=== PATIENT | female | born 1960 | race Caucasian/White ===

== ENCOUNTER 2023-03-15 13:19 | Outpatient (OUT) | payer BC, SELFPAY ==
[2023-03-15 13:56] LABS: Calcium 9.6 mg/dL (8.5-10.1)
== END 2023-03-15 13:20 | disposition home or self-care (01) ==
LOC: LAB 13:21
PROVIDERS: PCP Family Medicine; Visit Provider Nurse Practitioner Family
DX: M81.0 Age-related osteoporosis without current pathological fracture (principal)
CPT/HCPCS: 36415; 82310

== ENCOUNTER 2023-03-21 16:24 | Outpatient (OUT) | payer BC, SELFPAY ==
--- NOTE | 2023-03-21 16:45 | XR_ITS ---
The [address] [address] Patient Name: CAROLINA GUTIERREZ MRN: [id number] date: 1960 Sex: F Assigned Patient Location: [facility] Current Patient Location: [facility] Accession/Order Number: [id number] Exam Date: 03/21/2023 16:38 Report Date: 03/21/2023 17:22 At the request of: BERRY BETH Procedure: XR chest 2V EXAM: XR chest 2V HISTORY: Cough, wheezing and shortness of breath for one week and history of asthma. COMPARISON: 09/15/2022. TECHNIQUE: PA and lateral views of the chest performed. FINDINGS: The trachea is normal. There is stable mild prominence of the cardiac silhouette. There is stable mild atheromatous calcification at the aortic arch. The hilar shadows are stable and unremarkable. There is no consolidation or infiltrates. There is no pleural effusion or pulmonary vascular congestion. There is no pneumothorax. The bony structures are osteopenic. There is mild scoliosis. XR/XR chest 2V IMPRESSION: There is no acute cardiopulmonary process. Electronically authenticated by: SHERRI MOCTEZUMA Date: 03/21/2023 17:22
== END 2023-03-21 16:25 | disposition home or self-care (01) ==
LOC: RAD 16:26
PROVIDERS: PCP Family Medicine; Visit Provider Nurse Practitioner
DX: R05.9 Cough, unspecified (principal); R06.2 Wheezing; R06.02 Shortness of breath
CPT/HCPCS: 71046

== ENCOUNTER 2023-06-14 13:45 | Outpatient (OUT) | payer BC, SELFPAY ==
--- NOTE | 2023-06-14 14:04 | CT_ITS ---
[address] [address] Patient Name: CAROLINA GUTIERREZ MRN: [id number] date: 1960 Sex: F Assigned Patient Location: CT Current Patient Location: Accession/Order Number: [id number] Exam Date: 06/14/2023 13:57 Report Date: 06/17/2023 10:59 At the request of: LELO DEL RIO Procedure: CT chest wo con EXAMINATION: CT chest wo con HISTORY: Abnormal Findings On Imaging Of Lung R91.6 COMPARISON: 04/09/2022 TECHNIQUE: Multi-planar CT images were created with IV contrast. Axial, Coronal, and Sagittal images. Dose reduction techniques were achieved by using automated exposure control and/or adjustment of mA and/or kV according to patient size and/or use of iterative reconstruction technique. FINDINGS: LUNGS: Small amount of soft tissue in the trachea likely retained mucus. Calcified tracheobronchial tree. Mild scattered patchy infiltrates in the left lung, nonspecific. Scattered pulmonary nodules1 the 2 largest in the right middle lobe axial image #49 measuring 5 mm in diameter and in the right lower lobe axial image 55 measuring 6 mm in diameter, both stable. No new significant pulmonary nodules PLEURA: No mass, effusion, or pneumothorax. VASCULATURE: No abnormality. MOY: No mass or adenopathy. MEDIASTINUM: No mass or adenopathy. CARDIAC: No enlargement or pericardial effusion. Moderate coronary atherosclerosis AORTA: No aneurysm or dissection. CHEST WALL: No mass or axillary adenopathy. BONES: Anterior wedge compression fractures of T6 and T9, unchanged. Mild to moderate degenerative changes LIMITED ABDOMEN: No suspicious findings. Limited images of the upper abdomen. OTHER: Negative. CT/CT chest wo con IMPRESSION: Stable scattered pulmonary nodules Electronically authenticated by: KARSON GARCIA Date: 06/17/2023 10:59
== END 2023-06-14 13:46 | disposition home or self-care (01) ==
LOC: CT 13:45
PROVIDERS: PCP Family Medicine; Visit Provider Internal Medicine
DX: R91.8 Other nonspecific abnormal finding of lung field (principal)
CPT/HCPCS: 71250

== ENCOUNTER 2023-08-21 08:11 | Outpatient (OUT) | payer BC, SELFPAY ==
--- NOTE | 2023-08-21 08:15 | XR_ITS ---
The [address] [address] Patient Name: CAROLINA GUTIERREZ MRN: [id number] date: 1960 Sex: F Assigned Patient Location: [facility] Current Patient Location: [facility] Accession/Order Number: [id number] Exam Date: 08/21/2023 08:17 Report Date: 08/21/2023 08:37 At the request of: BERRY BETH Procedure: XR chest 2V EXAM: Chest x-ray HISTORY: . Cough, Shortness Of Breath . COMPARISON: CT of the chest dating 06/14/2023 and chest x-ray dating 03/21/2023 TECHNIQUE: Frontal and lateral chest FINDINGS: Heart is upper limits of normal in size with left ventricular contour. Vascularity is unremarkable. Lungs are free of focal infiltrates. There were a couple compression deformities involving the thoracic spine. These were present on the previous CT of the chest of 06/14/2023. Left shoulder arthroplasty is noted. XR/XR chest 2V IMPRESSION: 1. Borderline cardiac enlargement. 2. No infiltrates. 3. Compression deformities involving a couple of the thoracic vertebral bodies which is unchanged. Electronically authenticated by: KARSON SCHMIDT Date: 08/21/2023 08:37
--- OUTSIDE RECORDS SUMMARY | 2023-08-21 08:21 | XMS_ITS | CCD ---
Author Name Unknown Address [address] [place] [address] [facility] Care Team Providers Care Sensory Scientist Name Role Phone Aline Guerrero Unavailable Rosa Lazo Unavailable SHANTE DELAROSA Unavailable Unavailable SHANTE DELAROSA Unavailable Unavailable ALINE GUERRERO Unavailable Unavailable SHANTE DELAROSA Unavailable Unavailable GUERREROALINE ROTH Unavailable Unavailable CLIFTON, ROSA CHASE Unavailable Unavailable CLIFTON, ROSA CHASE Unavailable Unavailable CLIFTON, ROSA CHASE Unavailable Unavailable GUERREROALINE ROTH Unavailable Unavailable CLIFTON, ORSA CHASE Unavailable Unavailable CLIFTON, ROSA CHASE Unavailable Unavailable CLIFTON, ROSA CHASE Unavailable Unavailable GUERREROALINE ROTH E Unavailable Unavailable CLIFTON, ROSA CHASE Unavailable Unavailable CLIFTON, ROSA CHASE Unavailable Unavailable GUERREROALINE ROTH Unavailable Unavailable CLIFTON, ROSA CHASE Unavailable Unavailable CLIFTON, ROSA CHASE Unavailable Unavailable ALINE GUERRERO Unavailable Unavailable Aline Guerrero Primary Care Provider ALINE GUERRERO Primary Care Physician [phone] Jesus Higgins Jr. Unavailable Tonia Zavala Unavailable Naty Luke Unavailable Consuelo Rosales Unavailable Aline Guerrero MD Primary Care Provider [phone] MD Aline Guerrero Primary Care Provider NANCY Rosales Attending Provider [phone] RADHA Berry Attending Provider Naomie Berry Unavailable Aline Guerrero MD Primary Care Provider [phone] Aline Guerrero MD Primary Care Provider Aline Guerrero MD Primary Care Provider [phone] ALINE GUERRERO Primary Care Physician MD Aline Guerrero Primary Care Provider [phone] RADHA Berry Attending Provider Silvestre Benavides Primary Care Physician ZIYAD ., DR ALINE Conner Primary Care Unavailable APLING, MERLINE B Consulting Unavailable APLINGMERLINE B Attending Unavailable APLING, MERLINE B Admitting Unavailable SILVESTRE BENAVIDES Primary Care Unavailable IKER, DR NHUNG Harry Consulting Unavailable SHERRI GRIGGS Attending Unavailable SHERRI GRIGGS Admitting Unavailable SHERRI GRIGGS Consulting Unavailable GUERRERO ., DR ALINE Conner Primary Care Unavailable SAMSA ., LELO Admitting Unavailable SAMSA ., LELO Attending Unavailable MAPUS, TONDRA Admitting Unavailable MAPUS, TONDRA Attending Unavailable GUERRERO ., DR ALINE Conner Primary Care Unavailable TEE PULIDO Attending Unavailable TEE PULIDO Admitting Unavailable GUERRERO ., DR ALINE Conner Primary Care Unavailable MARKER ., DR SANTA Consulting Unavailable KARSON CHAUDHARY Consulting Unavailable SILVESTRE BARLOW Consulting Unavailable TEE PULIDO Consulting Unavailable TANGELA BENAVIDESUEL REGINE Consulting Unavailable FAILEANA, SANABRIA H Attending Unavailable GUERRERO ., DR ALINE Conner Primary Care Unavailable FAWWAD, SANABRIA H Admitting Unavailable FAWWAD, SANABRIA H Consulting Unavailable DARAMOLA, STEVO Consulting Unavailable SAWYER BEASLEY Consulting UnavailGEOVANNY Ro Consulting Unavailable RASTELISA ALDRIDGE Consulting Unavailable EDDY ., EDMAR Attending Unavailable EDDY ., EDMAR Admitting Unavailable GUERRERO ., DR ALINE Conner Primary Care Unavailable KARSON SCHMIDT Consulting Unavailable EDDY ., EDMAR Consulting Unavailable NEWATIA, TYLER Consulting Unavailable DIAB ., STEPHANIE Consulting Unavailable WALESKA .CIARA Attending Unavailable GUERRERO ., DR ALINE Conner Primary Care Unavailable WALESKA ., CIARA Admitting Unavailable ZIEBMIA, DR NHUNG Harry Consulting Unavailable DAX ., KATAZRYNA Consulting Unavailable GUERRERO ., DR ALINE Conner Primary Care Unavailable MISC, DR MARX Attending Unavailable MISC, DR MAXR Admitting Unavailable MAKAYLA, SILVESTRE WEINER Primary Care Unavailable SAMSA ., LELO Admitting Unavailable SAMSA ., LELO Consulting Unavailable SAMSA ., LELO Attending Unavailable MAPUS, TONDRA Consulting Unavailable MAPUS, TONDRA Attending Unavailable ROSS, SILVESTRE REGINE Primary Care Unavailable MAPUS, TONDRA Admitting Unavailable GUERRERO ., DR ALINE Conner Primary Care Unavailable GUERRERO ., DR ALINE Conner Consulting Unavailable GUERRERO ., DR ALINE Conner Attending Unavailable GUERRERO ., DR ALINE Conner Admitting Unavailable ARZATE, JOSHUA Consulting Unavailable GUERRERO ., DR ALINE Conner Primary Care Unavailable GUERRERO ., DR ALINE Conner Consulting Unavailable GUERRERO ., DR ALINE Conner Attending Unavailable GUERRERO ., DR ALINE Conner Admitting Unavailable ZIEBER, DR NHUNG Harry Consulting Unavailable GUERRERO ., DR ALINE Conner Primary Care Unavailable GUERRERO ., DR ALINE Conner Consulting Unavailable GUERRERO ., DR ALINE Conner Attending Unavailable GUERRERO ., DR ALINE Conner Admitting Unavailable TRIPP, DR KARSON Valencia Consulting Unavailable Guerrero Aline HDZ Primary Care Provider [phone] MEDARDO VUONG Attending Unavailable ALINE GUERRERO Primary Care Unavailable SELF, SELF Referring Unavailable SELF, SELF Referring Unavailable ALINE GUERRERO Primary Care Unavailable PUJA DELUCA Attending Unavailable PUJA DELUCA Referring Unavailable ALINE GUERRERO Primary Care Unavailable PUJA DELUCA Attending Unavailable MEDARDO VUONG Attending Unavailable MEDARDO VUONG Referring Unavailable ALINE GUERRERO Primary Care Unavailable Rosa Dunbar Attending Unavail able Makayla, Silvestre Liang Primary Care Unavailable BettinaRosa ustton Admitting Unavail able BettinaRosa sutton Admitting Unavail able Rosa Dunbar Attending Unavail able Makayla, Silvestre Liang Primary Care Unavailable STEVO NEFF Admitting Unavailable STEVO NEFF Attending Unavailable Tru, Teodora A Admitting Unavailable Tru, Teodora A Attending Unavailable CHINO Falk Attending Unavailable DO Shalom Toledo Attending Unavailable Silvestre Benavides E. Admitting Unavailable Tru, Teodora A Attending Unavailable Tru, Teodora A Attending Unavailable Tru, Beth A Attending Unavailable GUERREROALINE Attending Unavailable Silvestre Benavides Attending Unavailable Deya, MACHINE HOSE CUTTER Marisela L Attending Unavailable Silvestre Benavides Attending Unavailable Deya, MACHINE HOSE CUTTER Marisela L Attending Unavailable Deya, MACHINE HOSE CUTTER Marisela L Attending Unavailable Deya, MACHINE HOSE CUTTER Marisela L Attending Unavailable Silvestre Benavides Attending Unavailable Silvestre Benavides Attending Unavailable Deya, MACHINE HOSE CUTTER Marisela L Attending Unavailable Silvestre Benavides Attending Unavailable ROSA DUNBAR Attending Unavailable ROSA DUNBAR Referring Unavailable BETTINA, ROSA Manning Attending Unavailable ROSA DUNBAR Referring Unavailable SINTIA JARVIS Attending Unavailable FRANCESCA FUENTES Referring Unavailable BETTINA, ROSA Manning Attending Unavailable ROSA DUNBAR Referring Unavailable ROSA DUNBAR Attending Unavailable ROSA DUNBAR Referring Unavailable Silvestre Benavides MD Primary Care Provider Aline Guerrero Primary Care Unavailable Mapus, Tondra K Admitting Unavailable Mapus Tondra K Attending Unavailable Acacia Berryela Admitting Unavailable Naomie Berry Attending Unavailable Aline Guerrero Primary Care Unavailable Allergies Allergy Classification Reported Allergen(s) Allergy Type Date of Onset Reaction(s) Facility Cephalosporins (antibiotic) (1 source) Cephalexin Drug Allergy 10-19-19 05 [facility] Work Phone: Penicillins (antibiotic) (1 source) Penicillins Drug Allergy 01-05-20 04 [facility] Unclassified (7 sources) No Latex Allergy [Other] Propensity to adverse reactions 10-19-19 05 [facility] Work Phone: (20 sources) cephalexin; Translations: [CEPHALEXIN] Drug Allergy 10-19-19 05 Hives, Weal (disorder), Other [facility] Work Phone: (12 sources) Penicillins; Translations: [PENICILLINS] Propensity to adverse reactions to drug 05-09-20 15 Hives [facility] Work Phone: (17 sources) Penicillin G; Translations: [penicillin G benzathine] Drug Allergy Weal (disorder) [facility] (20 sources) Cephalexin; Translations: [Keflex] Drug Allergy 07-01-18 85 hives/breathin g issues [facility] (16 sources) Penicillins (Antibiotic) Drug allergy hives /breathing issues [employer] Other (5 sources) apixaban Drug Allergy 01-24-20 22 Itching [facility] (6 sources) Penicillins Propensity to adverse reactions 01-05-20 04 [facility] (6 sources) apixaban; Translations: [apixaban] Drug Allergy Unknown (qualifier value) [facility] (6 sources) cefprozil; Translations: [cefprozil] Drug Allergy Unknown (qualifier value) [facility] (6 sources) dabigatran etexilate; Translations: [dabigatran] Drug Allergy Unknown (qualifier value) [facility] (2 sources) Penicillins Drug allergy (disorder) 07-01-18 65 [facility] (3 sources) apixaban Drug Allergy 01-24-20 22 Itching, Unknown [facility] (3 sources) Penicillins Propensity to adverse reactions to drug 01-05-20 04 [facility] (1 source) Penicillin; Translations: [penicillin] Drug Allergy [facility] Rep[facility] (1 source) Sulfamethoxazole / Trimethoprim; Translations: [Bactrim] Drug Allergy [facility] Repository (1 source) Benzathine penicillin - chemical Allergy to substance 03-01-20 23 [facility] (1 source) Cefprozil Allergy to substance 05-06-20 23 Unknown [facility] (1 source) dabigatran etexilate Drug Allergy 05-06-20 23 Unknown [facility] (1 source) Cephalexin Drug Allergy 07-24-19 24 [facility] (1 source) Penicillins Drug allergy (disorder) 07-24-19 24 [facility] Medications Current Medications Medication Drug Class(es) Dates Sig (Normalized) Sig (Original) 3 ML semaglutide 1.34 MG/ML Pen Injector [Ozempic] (20 sources) Start: 11-01-2021 inject 1 mg by subcutaneous injection every week Ozempic (1 MG/DOSE) 4 MG/3ML 1mg Subcutaneous once weekly for 84 days October, Active Start: 02-06-2021 inject 1 mg by subcu taneous injection every week Ozempic (1 MG/DOSE) 4 MG/3ML inject 1mg Subcutaneous Weekly for 90 days Jan, Active Ozempic (1 MG/DO SE) 4 MG/3ML INJECT 1MG SUBCUTANEOUSLY ONCE WEEKLY 84 DAYS for 84 Active inject 1 mg by subcu taneous injection every week Ozempic (1 MG/DOSE) 4 MG/3ML 1mg Subcutaneous once weekly for 84 days Active inject 1 mg by subcu taneous injection every week Ozempic (1 MG/DOSE) 4 MG/3ML INJECT 1MG SUBCUTANEOUSLY ONCE A WEEK for 84 Active acetaminophen 325 mg oral tablet (8 sources) Start: 01-23-2022 take 2 tablets by mouth every four hours as needed acetaminophen 325 MG tablet Take 2 tablets by mouth every 4 hours as needed for Mild Pain. 50 tablet 1 01/23/2022 Active Start: 01-23-2022 End: 01-24-2022 take 1 tablet by mouth every six hours acetaminophen (TYLENOL) tablet 1,000 mg acetaminophen 325 mg / oxyCODONE hydrochloride 5 mg oral tablet (2 sources) Opioid Agonist Start: 05-16-2017 End: 05-16-2017 take 2 tablets by mouth every four hours oxyCODONE-acetaminophen (PERCOCET) 5-325 mg per tablet Take 2 (two) tablets by mouth every 4 (four) hours as needed for pain. 30 tablet 0 05/16/2017 Active Advair Discus 250 mcg-50 mcg Powder (12 sources) Start: 07-29-2015 take 1 puff(s) by inhalation twice daily Advair Discus 250 mcg-50 mcg Powder 1 puff(s), Inhalation, BID, Refill(s) 0, COPD Start Date: 07/29/15 Status: Ordered Advair Diskus 500-50 MCG/DOSE (14 sources) take 1 puff(s) by inhalation every twelve hours Advair Diskus 500-50 MCG/DOSE 1 puff Inhalation every 12 hrs Active albuterol 0.833 mg/ml / ipratropium bromide 0.167 mg/ml inhalation solution (4 sources) Anticholiner gic, beta2-Adrene rgic Agonist Start: 10-01-2022 DuoNeb 2.5 mg-0.5 mg/3 mL Soln-Inh 3 mL, NEB, 6x/Day, 180 mL, Refill(s) 1, [facility]/pharmacy #[id number], 143.2, cm, 10/01/22 7:16:00 EDT, Height/Length Dosing, 86.8, kg, 10/01/22 7:16:00 EDT, Weight Dosing Start Date: 10/01/22 Status: Ordered Start: 09-05-2022 DuoNeb 2.5 mg- 0.5 mg/3 mL Soln-Inh 3 mL, NEB, 6x/Day, Refill(s) 0 Start Date: 09/05/22 Status: Ordered azelastine hydrochloride 0.137 mg/actuat metered dose nasal spray (8 sources) Histamine-1 Receptor Antagonist Start: 12-13-2022 take 2 spray(s) nasal route in the morning azelastine (Astelin) 0.1 % nasal spray Administer 2 sprays into affected nostril(s) in the morning and 2 sprays in the evening. 0 12/13/2022 Active Start: 12-28-2021 take 2 spray(s) nasa l route twice daily Azelastine HCl 137 MCG/SPRAY Solution nasal spray USE 2 SPRAYS IN EACH NOSTRIL TWICE DAILY, NEED TO USE REGULARLY FOR BENEFIT 0 12/28/2021 Active azithromycin 250 mg oral tablet (1 source) Macrolide Antimicrobial Start: 04-05-2022 Azithromycin 250 MG as directed Orally for 5 days Mar, Active benzonatate 200 mg oral capsule (8 sources) Non-narcotic Antitussive Start: 12-20-2021 take 1 capsule by mouth every eight hours as needed for cough benzonatate 200 MG capsule TAKE 1 CAPSULE BY MOUTH EVERY 8 HOURS NEEDED FOR COUGH 0 12/20/2021 Active Start: 12-15-2021 take 1 capsule by [facility] three times daily as needed Tessalon Perles 100 MG 1 capsule as needed Orally Three times a day for 7 days Nov, Active bifidobacterium infantis 4 mg oral capsule (8 sources) Start: 10-09-2021 End: 11-06-2021 Probiotic Product (Align) capsule TAKE 1 CAPSULE DAILY AFTER COMPLETING ANTIBIOTICS COURSE 0 10/09/2021 Active brompheniramine maleate 0.4 mg/ml / dextromethorphan hydrobromide 2 mg/ml / pseudoephedrine hydrochloride 6 mg/ml oral solution (1 source) alpha-Adrenergic Agonist, Uncompetitive T-eccvsw-M-asparta te Receptor Antagonist, Sigma-1 Agonist Start: 09-07-2022 take 5 mL by mouth four times daily Bromfed DM oral syrup 5 mL, Oral, QID for cold symptoms, 200 mL, Refill(s) 0, [facility]/pharmacy #[id number], 150, cm, 09/06/22 23:56:00 EST, Height/Length Dosing, 87.3, kg, 09/06/22 23:56:00 EST, Weight Dosing Start Date: 09/07/22 Status: Ordered 60 actuat budesonide 0.16 mg/actuat / formoterol fumarate 0.0045 mg/actuat metered dose inhaler (1 source) Corticosteroid, beta2-Adrenergic Agonist Start: 09-05-2022 take 2 puff(s) by inhalation in the morning budesonide-formo terol (Symbicort) 160-4.5 MCG/ACT inhaler Inhale 2 puffs in the morning and 2 puffs before bedtime. 0 09/05/2022 Active calcium carbonate 1500 mg oral tablet (7 sources) take 1 tablet by mouth in the morning calcium carbonate 1500 (600 Ca) MG tablet Take 600 mg by mouth in the morning and 600 mg in the evening. Take with meals. 0 Active cetirizine hydrochloride 10 mg oral tablet (6 sources) Histamine-1 Receptor Antagonist Start: 12-15-2021 cetirizine 10 MG tablet 2 times daily. 0 12/15/2021 Active Start: 12-15-2021 take 1 tablet by hermelinda every twenty-four hours Cetirizine HCl 10 MG 1 tablet Orally Once a day for 14 days Nov, Active ciprofloxacin 500 mg oral tablet (3 sources) Quinolone Antimicrobial Start: 10-05-2022 take 1 tablet by mouth every twelve hours Cipro 500 MG 1 tablet Orally every 12 hrs for 5 day(s) Sep, Active clindamycin 300 mg oral capsule (4 sources) Lincosamide Antibacterial Start: 01-15-2023 take 2 capsules by mouth every hour clindamycin (Cleocin) 300 MG capsule TAKE 2 CAPSULES BY MOUTH 1 HOUR PRIOR TO DENTAL APPOINTMENT 0 01/15/2023 Active Start: 02-15-2022 End: 02-15-2023 clindamycin 150 MG capsule T rios 4 capsules 1 hour before the procedure 8 capsule 1 02/15/2022 02/15/2023 Active colchicine 0.6 mg oral tablet (1 source) take 1 tablet by mouth twice daily Colchicine 0.6 MG TAKE 1 TABLET BY MOUTH TWICE A DAY Oral for 30 Active cyclobenzaprine hydrochloride 10 mg oral tablet (6 sources) Muscle Relaxant Start: 09-06-19 take 1 tablet by mouth three times daily as needed for pain cyclobenzaprine 10 mg Tab 10 mg = 1 tab(s), Oral, TID, PRN for spasm, prn back pain, # 30 tab(s), Refills(s) 0 Start Date: 09/05/22 Status: Ordered take 1 tablet by hermelinda th every eight hours as needed for pain Cyclobenzaprine HCl 10 MG TAKE 1 TABLET BY MOUTH EVERY 8 HOURS NEEDED FOR BACK PAIN Oral for 10 Active 1 ml denosumab 60 mg/ml prefilled syringe (20 sources) RANK Ligand Inhibitor Start: 03-27-2023 denosuma b (Prolia) injection 60 mg Start: 09-14-2021 Prolia 60 mg, SubCutaneous, q6mo, Refills(s) 0, Arthritis Start Date: 09/14/21 Status: Ordered Start: 09-14-2021 Prolia Refills (s) 0, Arthritis Start Date: 09/14/21 Status: Ordered Start: 09-14-2021 Prolia Refills (s) 0 Start Date: 09/14/21 Status: Ordered Start: 09-14-2021 Denosumab (PRO XANDER SC) every 6 months. 0 09/14/2021 Active dexamethasone 6 mg oral tablet (2 sources) Corticosteroid Start: 04-05-2022 take 1 tablet by mouth every twenty-four hours Dexamethasone 6 MG 1 tablet Orally Once a day for 5 day(s) Mar, Active Start: 01-24-2022 End: 01-24-2022 take 10 mg intravenously every twenty-four hours dexAMETHasone (DECADRON) injection 10 mg dextromethorphan hydrobromide 1.5 mg/ml / pyrilamine maleate 1.5 mg/ml oral solution (11 sources) Uncompetitive P-lsumdh-V-aspartate Receptor Antagonist, Sigma-1 Agonist Start: 04-15-2022 take 10 mL by mouth every eight hours Boring DM 7.5-7.5 MG/5ML 10 mL Orally every 8 hours for 5 days Mar, Active DISABILITY PLACARD (5 sources) Start: 02-15-2022 DISABILITY PLACARD Disability placard end date 05/01/2022. Dx 719.7 1 Each 0 02/15/2022 Active docusate sodium 100 mg oral capsule (7 sources) Start: 01-23-2022 End: 01-24-2022 take 1 capsule by mouth twice daily docusate 100 MG capsule Take 1 capsule by mouth 2 times daily. 60 capsule 0 01/23/2022 Active doxycycline hyclate 100 mg oral tablet (20 sources) Tetracycline-class Drug Start: 09-07-2022 End: 09-14-2022 take 1 tablet by mouth every twelve hours doxycycline hyclate 100 mg Tab 100 mg = 1 tab(s), Oral, q12hr, X 7 day(s), # 14 tab(s), Refills(s) 0, Pharmacy: [facility]/pharmacy #[id number], 150, cm, 09/06/22 23:56:00 EST, Height/Length Dosing, 87.3, kg, 09/06/22 23:56:00 EST, Weight Dosing Start Date: 09/07/22 Stop Date: 09/14/22 Status: Ordered Start: 04-15-2022 take 1 capsule by mo [facility] every twelve hours Doxycycline Monohydrate 100 MG 1 capsule Orally every 12 hrs for 10 days Mar, Active Start: 01-03-2022 [facility] doxy[facility]ine monohydrate 100 MG tablet Take 1 tablet by mouth 2 times daily. 0 01/03/2022 Active Start: 04-18-2011 Doxycycline Mo nohydrate 40 mg capsule Take 1 capsule by mouth. 0 04/18/2011 Active Comment on above: Take 1 capsule by mo ut. Epipen 2-Panchito 0.3 Mg/0.3 Ml Injection, Auto-Injector (6 sources) Start: 06-21-20 16 EPIPEN 2-PANCHITO 0.3 mg/0.3 mL AtIn USE ONLY DIRECTED FOR ALLERGIC REACTION, CALL 911 AND GO TO E.R. 1 06/21/2016 Active ergocalciferol 1.25 mg oral capsule (6 sources) Provitamin D2 Compound Start: 05-09-20 take 1 capsule by mouth at mealtime ergocalciferol (Vitamin D2) 1.25 MG (74137 UT) capsule TAKE 1 CAP BY MOUTH ON SATURDAY AND SATURDAY WITH FOOD FOR 8 WEEKS 0 05/09/2022 Active Start: 05-09-2022 ergocalciferol 50,000 unit capsule (VITAMIN D2, DRISDOL) Indications: Vitamin D deficiency (take by mouth with food twice a week, ONE CAPSULE ON SATURDAY AND ONE ON SATURDAY) FOR A TOTAL OF 8 WEEKS. 16 capsule 0 05/09/2022 Active Comment on above: (take by mouth with food twice a week, ONE CAPSULE ON SATURDAY AND ONE ON SATURDAY) FOR A TOTAL OF 8 WEEKS. famotidine 20 mg oral tablet (13 sources) Histamine-2 Receptor Antagonist Start: 08-24-2022 End: 11-22-2022 take 1 tablet by mouth once daily at bedtime famotidine 20 mg Tab 20 mg = 1 tab(s), Oral, Once a day (at bedtime), X 90 day(s), # 90 tab(s), Refills(s) 0, Pharmacy: [facility]/pharmacy #[id number], 149, cm, 07/24/22 15:35:00 EST, Height/Length Dosing, 82.7, kg, 07/24/22 15:35:00 EST, Weight Dosing Start Date: 08/24/22 Stop Date: 11/22/22 Status: Ordered Start: 05-11-2022 End: 08-09-2022 take 1 tablet by mouth once daily at bedtime Pepcid 20 mg Tab 20 mg = 1 tab(s), Oral, Once a day (at bedtime), X 90 day(s), # 90 tab(s), Refills(s) 0, Pharmacy: [facility]/pharmacy #[id number], 145, cm, 05/11/22 14:11:00 EST, Height/Length Dosing, 85.8, kg, 05/11/22 14:11:00 EST, Weight Dosing Start Date: 05/11/22 Stop Date: 08/09/22 Status: Ordered Start: 10-13-2021 End: 01-12-2022 take 1 tablet by mouth at bedtime faMOTIdine 20 MG tablet Take 20 mg by mouth at bedtime. 0 10/13/2021 01/12/2022 Discontinued (Patient Preference) Flonase 0.05 mg/inh nasal spray (15 sources) Start: 07-29-2015 Flonase 0.05 m g/inh nasal spray 2 spray(s), Nasal, Daily, Refill(s) 0, Allergy symptoms Start Date: 07/29/15 Status: Ordered fluticasone propionate 0.05 mg/actuat metered dose nasal spray (20 sources) Corticosteroid Start: 07-29-2015 Flonase 0.05 m g/inh nasal spray 2 spray(s), Nasal, Daily, Refill(s) 0, Allergy symptoms Start Date: 07/29/15 Status: Ordered Start: 04-18-2011 take 1 spray(s) nasa l route once daily at bedtime fluticasone (FLONASE) 50 mcg/actuation nasal spray 1 [place] daily at bedtime. in each nostril. 0 04/18/2011 Active take 2 spray(s) nasa l route in the morning fluticasone (Flonase) 50 MCG/ACT nasal spray Administer 2 sprays into affected nostril(s) in the morning. 0 Active take 2 spray(s) nasa l route once daily Flonase 50 MCG/ACT 2 sprays Nasally Once a day for 30 day(s) Active take 2 spray(s) nasa l route once daily Flonase 50 MCG/ACT 2 sprays Nasally Once a day for 30 day(s) Active fluticasone 50 M CG/ACT Suspension nasal spray 2 sprays by Nasal route daily. 0 Active take 2 spray(s) nasa l route once daily in the morning fluticasone (FLONASE) 50 mcg/actuation nasal spray Instill 2 sprays into each nostril every morning . Active Comment on above: 1 [place] daily at bed time. in each nostril. HERBAL PRODUCT (5 sources) HERBAL PRODUCT d aily. Nerve 911 0 Active L.ACID/L.CASEI/B.BIF/B.L ON/FOS (PROBIOTIC BLEND ORAL) (6 sources) L.ACID/L.CASEI/B .BIF/B. LUPE/FOS (PROBIOTIC BLEND ORAL) Take by mouth every morning. Active leflunomide 20 mg oral tablet (8 sources) Antirheumatic Agent Start: 2021 take 1 tablet by mouth once daily leflunomide 20 mg Tab 20 mg = 1 tab(s), Oral, Daily, Refills(s) 0, Arthritis Start Date: 09/14/21 Status: Ordered levoFLOXacin 750 mg oral tablet (1 source) Quinolone Antimicrobial Start: 2022 take 1 tablet by mouth once daily levoFLOXacin (Levaquin) 750 MG tablet TAKE 1 TABLET BY MOUTH EVERY DAY FOR 7 DAYS 0 04/23/2023 Active metFORMIN hydrochloride 500 mg oral tablet (6 sources) Biguanide take 1 tablet by mouth once daily in the morning metFORMIN (GLUCOPHAGE) 500 MG tablet Take 500 mg by mouth every morning. Active methylPREDNISolone 4 mg oral tablet (2 sources) Corticosteroid Start: 2022 methylPREDNISolone 4 MG as directed Orally for daily dose take half with breakfast, half with dinner for 6 days Aug, Active methylPREDNISolone 4 mg tab dosepak (1 source) Start: 2022 take 1 tablet by mouth once methylPREDNISolone 4 mg tab dosepak = 1 packet(s), Oral, Once, as directed on package labeling, # 21 tab(s), Refills(s) 0, Pharmacy: [facility]/pharmacy #[id number], 143.2, cm, 06/28/23 10:53:00 EST, Height/Length Dosing, 98, kg, 06/28/23 10:53:00 EST, Weight Dosing Start Date: 06/28/23 Status: Ordered metroNIDAZOLE 250 mg oral tablet (1 source) Nitroimidazole Antimicrobial Start: 2021 End: 2021 take 1 tablet by mouth three times daily Flagyl 250 mg Tab 250 mg = 1 tab(s), Oral, TID, X 7 day(s), # 21 tab(s), Refills(s) 0, Pharmacy: [facility]/pharmacy #[id number], 145.4, cm, 10/04/21 15:27:00 EDT, Height/Length Dosing, 82, kg, 10/04/21 15:27:00 EDT, Weight Dosing Start Date: 10/09/21 Stop Date: 10/16/21 Status: Ordered montelukast 10 mg oral tablet (10 sources) Leukotriene Receptor Antagonist Start: 2022 take 1 tablet by mouth twice daily montelukast 10 mg Tab See Instructions, TAKE 1 TABLET BY MOUTH TWICE A DAY, # 180 tab(s), Refills(s) 1, Pharmacy: [facility] STORE [id number], 143.2, cm, 12/05/22 15:37:00 EDT, Height/Length Dosing, 85.3, kg, 12/05/22 15:37:00 EDT, Weight Dosing Start Date: 03/26/23 Status: Ordered Start: 10-08-2022 take 1 tablet by hermelinda th twice daily montelukast 10 mg Tab See Instructions, TAKE 1 TABLET BY MOUTH TWICE A DAY, # 180 tab(s), Refills(s) 1, Pharmacy: [id number], 143.2, cm, 10/01/22 7:16:00 EDT, Height/Length Dosing, 86.8, kg, 10/01/22 7:16:00 EDT, Weight Dosing Start Date: 10/08/22 Status: Ordered Start: 01-24-2022 End: 01-24-2022 take 10 mg by mouth once daily 10 mg, Oral, DAILY, Fir st dose on Sat01/24/22 at 0900, Until Discontinued Montelukast Sodi um Active Multiple Vitamin (Multi-Vitamin) tablet (7 sources) take 1 tablet by hermelinda th in the morning Multiple Vitamin (Multi-Vitamin) tablet Take 1 tablet by mouth in the morning. 0 Active take 1 tablet by hermelinda th once daily in the morning Multiple Vitamin (Multi-Vitamin) tablet Take 1 tablet by mouth daily every morning. 0 Active Multivitamin Tablet (6 sources) take 1 tablet by mouth once daily in the morning multivitamin (multivitamin) per tablet Take 1 tablet by mouth every morning . Active omeprazole 40 mg delayed release oral capsule (20 sources) Proton Pump Inhibitor Start: take 1 capsule by mouth once daily in the morning omeprazole [address] capsule TAKE 1 CAPSULE BY MOUTH EVERY MORNING *CALL OFFICE TO SCHEDULE FOLLOW UP* 0 12/07/2021 Active take 1 capsule by mo uth once daily in the morning omeprazole (PRILOSEC) 40 MG capsule Take 40 mg by mouth every morning. Active omeprazole 40 mg Cap-DR (4 sources) Start: 09-14-2021 take 1 capsule by mouth once daily omeprazole 40 mg Cap-DR 40 mg = 1 cap(s), Oral, Daily, Refills(s) 0 Start Date: 09/14/21 Status: Ordered ondansetron 4 mg oral tablet (12 sources) Serotonin-3 Receptor Antagonist Start: 11-28-2022 take 1 tablet by mouth every six hours Zofran 4 mg Tab 4 mg = 1 tab(s), Oral, q6hr, # 30 tab(s), Refills(s) 1, Pharmacy: [facility]/pharmacy #[id number], 143.2, cm, 11/22/22 13:09:00 EDT, Height/Length Dosing, 90.2, kg, 11/22/22 13:09:00 EDT, Weight Dosing Start Date: 11/28/22 Status: Ordered Start: 01-23-2022 End: 01-24-2022 take 4 mg intravenously every four hours as needed ondansetron 4mg/2ml (ZOFRAN) injection 4 mg Start: 10-05-2021 End: 10-10-2021 take 1 tablet by mouth every twelve hours as needed for nausea ondansetron 4 MG tablet TAKE 1 TABLET BY MOUTH EVERY 12 HOURS NEEDED FOR NAUSEA FOR 5 DAYS 0 10/05/2021 Active Start: 10-26-2019 take 1 tablet by hermelinda th every eight hours Zofran 4 mg Tab 4 mg = 1 tab(s), Oral, q8hr, # 20 tab(s), Refills(s) 3, [id number] Start Date: 10/26/19 Status: Ordered Start: 05-16-2017 take 1 tablet by hermelinda th every six hours ondansetron (ZOFRAN, HYDROCHLORIDE,) 4 MG tablet Take 1 (one) tablet (4 mg total) by mouth every 6 (six) hours as needed for nausea. 30 tablet 1 05/16/2017 Active oxyCODONE hydrochloride 5 mg oral tablet (7 sources) Opioid Agonist Start: 02-22-2022 take 1 tablet by mouth every twelve hours as needed for pain oxyCODONE 5 MG tablet Indications: Acute postoperative pain of right knee Take 1 tablet by mouth every 12 hours as needed for Severe Pain for up to 7 days. Wean as tolerated. 14 tablet 0 02/22/2022 Active Start: 02-13-2022 End: 02-19-2022 take 1-2 tablets by mouth every six hours as needed for pain oxyCODONE 5 MG tablet Indications: Acute postoperative pain of right knee Take 1-2 tabs po q 6 hours prn pain. Wean as tolerated. 20 tablet 0 02/13/2022 Active Start: 01-23-2022 End: 01-30-2022 oxyCODONE (ROXICODONE) table t 5 mg Ozempic (1 mg dose) (14 sources) Start: 10-13-2021 inject 1 mg by subcutaneous injection every week Ozempic (1 mg dose) 1 mg, SubCutaneous, qWeek, Ordered by another provider., Refills(s) 0, Blood glucose Start Date: 10/13/21 Status: Ordered Start: 10-13-2021 inject 1 mg by subcu taneous injection every week Ozempic (1 mg dose) 1 mg, SubCutaneous, qWeek, Ordered by another provider., Refills(s) 0 Start Date: 10/13/21 Status: Ordered ozempic (1 mg/dose) 4 mg/3ml solution pen-injector (2 sources) Ozempic (1 MG/DO SE) 4 MG/3ML INJECT 1MG SUBCUTANEOUSLY ONCE WEEKLY 84 DAYS for 84 Active inject 1 mg by subcu taneous injection every week Ozempic (1 MG/DOSE) 4 MG/3ML 1mg Subcutaneous once weekly for 84 days Active Ozempic, 1 MG/DOSE, 4 MG/3ML Solution Pen-injector (7 sources) Start: 12-25-2021 inject 1 mg by subcutaneous injection every week Ozempic, 1 MG/DOSE, 4 MG/3ML Solution Pen-injector INJECT 1MG SUBCUTANEOUSLY ONCE WEEKLY 0 12/25/2021 Active Ozempic, 1 MG/DOSE, 4 MG/3ML solution pen-injector (1 source) inject 1 mg by subcutaneous injection every week Ozempic, 1 MG/DOSE, 4 MG/3ML solution pen-injector INJECT 1MG SUBCUTANEOUSLY ONCE WEEKLY 84 DAYS 0 Active pantoprazole 40 mg delayed release oral tablet (5 sources) Proton Pump Inhibitor Start: 03-21-2023 End: 03-15-2024 take 1 tablet by mouth once daily Pantoprazole [address] Tab 40 mg = 1 tab(s), Oral, Daily, X 90 day(s), # 90 tab(s), Refills(s) 3, SALAS, Pharmacy: [facility]/pharmacy #[id number], 143.2, cm, 12/05/22 15:37:00 EDT, Height/Length Dosing, 85.3, kg, 12/05/22 15:37:00 EDT, Weight Dosing Start Date: 03/21/23 Stop Date: 03/15/24 Status: Ordered Start: 12-05-2022 End: 03-05-2023 take 1 tablet by mouth once daily Pantoprazole [address] Tab 40 mg = 1 tab(s), Oral, Daily, X 90 day(s), # 90 tab(s), Refills(s) 0, [id number] 143.2, cm, 12/05/22 15:37:00 EDT, Height/Length Dosing, 85.3, kg, 12/05/22 15:37:00 EDT, Weight Dosing Start Date: 12/05/22 Stop Date: 03/05/23 Status: Ordered Start: 01-24-2022 End: 01-24-2022 take 40 mg by mouth once daily 40 mg, Oral, DAILY, Fir st dose on Sat01/24/22 at 0900, Until Discontinued, Indications: Continuation of Home Therapy, Inpt Stress Ulcer Prophylaxis predniSONE 50 mg oral tablet (4 sources) Start: 09-07-2022 End: 09-12-2022 take 1 tablet by mouth once daily predniSONE 50 mg Tab 50 mg = 1 tab(s), Oral, Daily, X 5 day(s), # 5 tab(s), Refills(s) 0, Pharmacy: [facility]/pharmacy #[id number], 150, cm, 09/06/22 23:56:00 EST, Height/Length Dosing, 87.3, kg, 09/06/22 23:56:00 EST, Weight Dosing Start Date: 09/07/22 Stop Date: 09/12/22 Status: Ordered Start: 05-02-2022 take 1 tablet by hermelinda th every twelve hours predniSONE 20 MG 1 tablet Orally 2 times a day for 5 day(s) May, Active pregabalin 75 mg oral capsule (1 source) Start: 06-19-2023 take 1 capsule by mouth in the morning pregabalin (Lyrica) 75 MG capsule Indications: Left shoulder pain, unspecified chronicity Take 1 capsule (75 mg) by mouth in the morning for 7 days. 7 capsule 0 06/19/2023 Active Rinvoq (4 sources) Start: 04-24-2021 take 1 mg by mouth once daily Rinvoq mg, Oral, Daily, Refills(s) 0 Start Date: 04/24/21 Status: Ordered Spiriva HandiHaler (5 sources) Spiriva HandiHal er Active sucralfate 1000 mg oral tablet (3 sources) Aluminum Complex Start: 09-14-2021 End: 10-14-2021 take 1 tablet by mouth once daily sucralfate tab 1 gm = 1 tab(s), Oral, Daily, X 30 day(s), # 30 tab(s), Refills(s) 0, Pharmacy: [facility]/pharmacy #[id number], 149, cm, 09/14/21 15:32:00 EDT, Height/Length Dosing, 81.3, kg, 09/14/21 15:32:00 EDT, Weight Dosing Start Date: 09/14/21 Stop Date: 10/14/21 Status: Ordered sulfamethoxazole 800 mg / trimethoprim 160 mg oral tablet (1 source) Dihydrofolate Reductase Inhibitor Antibacterial, Sulfonamide Antimicrobial Start: 03-01-2021 take 1 tablet by mouth every twelve hours Bactrim DS 800-160 MG 1 tablet Orally Twice a day for 5 days Mar, Active levothyroxine sodium 0.137 mg oral tablet (20 sources) l-Thyroxine Start: 03-26-2023 take 1 tablet by mouth once daily levothyroxine 137 mcg (0.137 mg) Tab See Instructions, TAKE 1 TABLET BY MOUTH EVERY DAY, # 90 tab(s), Refills(s) 0, Pharmacy: [facility] STORE [id number], 143.2, cm, 12/05/22 15:37:00 EDT, Height/Length Dosing, 85.3, kg, 12/05/22 15:37:00 EDT, Weight Dosing Start Date: 03/26/23 Status: Ordered Start: 11-14-2022 take 1 tablet by hermelinda once daily levothyroxine 137 mcg (0.137 mg) Tab 137 mcg = 1 tab(s), Oral, Daily, # 90 tab(s), Refills(s) 0, Pharmacy: [facility]/pharmacy #[id number], 143.2, cm, 10/01/22 7:16:00 EDT, Height/Length Dosing, 86.8, kg, 10/01/22 7:16:00 EDT, Weight Dosing Start Date: 11/14/22 Status: Ordered Start: 05-22-2022 take 1 tablet by hermelinda th once daily levothyroxine 137 mcg (0.137 mg) Tab 137 mcg = 1 tab(s), Oral, Daily, Refills(s) 0 Start Date: 05/22/22 Status: Ordered Start: 01-24-2022 End: 01-24-2022 take 137 ug by mouth once daily 137 mcg, Oral, DAILY, First dose on Sat01/24/22 at 0900, Until Discontinued Start: 11-10-2021 take 1 tablet by hermelinda th once daily levothyroxine 137 MCG tablet Take 137 mcg by mouth daily. 0 11/10/2021 Active Start: 04-19-2016 levothyroxine (SYNTHROID) 75 mcg tablet TAKE 1.5 TABLETS ON SATURDAY, SATURDAY, SATURDAY, SATURDAY AND 2 TABLETS THE OTHER 3 DAYS 155 tablet 3 04/19/2016 Active Start: 08-11-2015 End: 03-20-2016 levothyroxine (SYNTHROID) 75 mcg tablet TAKE 1.5 TAB ON SATURDAY, SATURDAY, SATURDAY AND SATURDAY. TAKE 2 TABS THE OTHER 3 DAYS. 144 tablet 3 08/11/2015 03/20/2016 Discontinued Start: 07-29-2015 levothyroxine 75 mcg (0.075 mg) Tab 75 microgram = 1 tab(s), Oral, As Directed, Refills(s) 0, Thyroid Start Date: 07/29/15 Status: Ordered Start: 07-29-2015 End: 05-13-2017 levothyroxine 75 mcg (0.075 mg) Tab 75 microgram = 1 tab(s), Oral, As Directed, Refills(s) 0, Thyroid Start Date: 07/29/15 Status: Ordered Levothyroxine So dium 25 MCG 1 tablet every morning on an empty stomach Orally Once a day for 30 day(s) Active Levothyroxine So dium 25 MCG 1 tablet every morning on an empty stomach Orally Once a day for 30 day(s) Active Comment on above: TAKE 1.5 TAB ON , SATURDAY, SATURDAY AND SATURDAY. TAKE 2 TABS THE OTHER 3 DAYS. TAKE 1.5 TABLETS ON SATURDAY, SATURDAY, SATURDAY, SATURDAY AND 2 TABLETS THE OTHER 3 DAYS 28 actuat tiotropium 0.92091 mg/actuat inhalation spray (1 source) Anticholinergic Start: 10-03-2022 Spiriva Respimat 1.25 MCG/ACT inhaler 1 (one) time each day at the same time. 0 10/03/2022 Active triamcinolone acetonide 0.001 mg/mg topical ointment (7 sources) Corticosteroid Start: 12-11-2021 triamcinolone 0.1 % Ointment ointment APPLY TO AFFECTED AREAS OF RASH TWICE DAILY NEEDED FOR 30 DAYS 0 12/11/2021 Active 24 hr upadacitinib 15 mg extended release oral tablet (20 sources) Start: 12-05-2022 Rinvoq 15 mg oral tablet, extended release Refills(s) 0 Start Date: 12/05/22 Status: Ordered Start: 04-24-2021 End: 07-19-2022 take 1 tablet by mouth once daily upadacitinib (RINVOQ) Tb24 tablet Indications: Rheumatoid arthritis of multiple sites without rheumatoid factor (HCC) Take 1 tablet (15 mg) by mouth once daily. Swallow whole; DO NOT crush, chew, or open. 30 tablet 11 07/19/2022 Active Start: 04-24-2021 take 1 mg by mouth once daily Rinvoq mg, Oral, Daily, Refills(s) 0, Arthritis Start Date: 04/24/21 Status: Ordered Start: 04-24-2021 take 1 mg by mouth once daily Rinvoq mg, Oral, Daily, Refills(s) 0 Start Date: 04/24/21 Status: Ordered Comment on above: Take 1tab by mouth. Hold if ill or on antibiotics. Swallow whole; DO NOT crush, chew, or open. On LIVE vaccines Take 1 tablet (15 mg ) by mouth once daily. Swallow whole; DO NOT crush, chew, or open. Upadacitinib (RINVOQ PO) (7 sources) Start: 10-25-202 1 take 15 mg by mouth once daily Upadacitinib (RINVOQ PO) Take 15 mg by mouth daily. 0 04/24/2021 Active Ventolin Hfa 90 McG/Actuation Aerosol Inhaler (6 sources) Start: 6 VENTOLIN HFA 90 mcg/actuation inhaler 2 puffs every 4 to 6 hours as needed. 1 06/21/2016 Active Vitafusion Gummy DHA and Folic Acid (8 sources) Start: 6 Vitafusion Gummy DHA and Folic Acid 1 tab(s), Oral, Refill(s) 0, Prophylaxis Start Date: 07/29/15 Status: Ordered Completed/Discontinued Medications Medication Drug Class(es) Dates Sig (Normalized) Sig (Original) 200 actuat albuterol 0.09 mg/actuat dry powder inhaler (20 sources) beta2-Adrenergic Agonist Start: 09-05-2022 take 1 dose by inhalation every four hours ProAir RespiClick 90 mcg/inh inhalation powder 2 puff(s), Inhalation, q4hr for wheezing or SOB, 1 EA, Refill(s) 11, [facility]/pharmacy #[id number], 144.8, cm, 09/05/22 15:24:00 EST, Height/Length Dosing, 82.7, kg, 09/05/22 15:24:00 EST, Weight Dosing Start Date: 09/05/22 Status: Ordered Start: 09-05-2022 take 1 dose by inhal ation every four hours ProAir RespiClick 108 (90 Base) MCG/ACT breath-activated inhaler 2 puff(s), Inhalation, q4hr for wheezing or SOB, 1 EA, Refill(s) 11, [facility]/pharmacy #[id number], 144.8, cm, 09/05/22 15:24:00 EST, Height/Length Dosing, 82.7, kg, 09/05/22 15:24:00 EST, Weight Dosing 0 09/05/2022 Active Start: 08-31-2022 take 2 puff(s) by in halation every four to six hours as needed Albuterol Sulfate HFA 108 (90 Base) MCG/ACT 2 puffs as needed Inhalation every 4-6 hours for 14 days Aug, Active Start: 03-03-2023 take 2 puff(s) by in halation every four to six hours as needed Albuterol Sulfate HFA 108 (90 Base) MCG/ACT 2 puffs as needed Inhalation every 4-6 hours for 14 days Aug, Active Start: 08-31-2022 take 2 puff(s) by in halation every four to six hours as needed Albuterol Sulfate HFA 108 (90 Base) MCG/ACT 2 puffs as needed Inhalation every 4-6 hours for 14 days Aug, Active Start: 01-23-2022 End: 01-24-2022 take 1 puff(s) by inhalation once daily 1 puff, Inhalation, 4 TIMES DAILY, First dose on Sat01/23/22 at 1900, Until Discontinued Wait at least one(1) full minute between inhalations Start: 12-30-2021 take 2 puff(s) by mo uth every four hours as needed albuterol 108 (90 Base) MCG/ACT Aero Soln inhaler INHALE 2 PUFFS BY MOUTH EVERY 4 HOURS NEEDED 0 12/30/2021 Active Start: 12-15-2021 take 2 puff(s) by in halation every four to six hours as needed Albuterol Sulfate HFA 108 (90 Base) MCG/ACT 2 puffs as needed Inhalation every 4-6 hours for 14 days Nov, Active bisacodyl 10 mg rectal suppository (1 source) Stimulant Laxative Start: 01-23-2022 End: 01-24-2022 bisacodyl (DULCOLAX) suppository 10 mg calcium chloride 0.0014 meq/ml / potassium chloride 0.004 meq/ml / sodium chloride 0.103 meq/ml / sodium lactate 0.028 meq/ml injectable solution (1 source) Start: 05-16-2017 End: 05-16-2017 take 50 mL intravenous route every hour lactated Ringers infusion 50 mL/hr, Intravenous, Continuous, Starting Ramona 05/16/17 at 1145, Pre-Procedure New Bag 05/16/2017 11:30 EST 50 mL/hr 50 mL/hr Calcium Citrate (7 sources) Start: 10-10-2005 CITRACAL 500 MG (2,376 MG) EFFERVESCENT TAB Indications: Other and unspecified nonspecific immunological findings , Alopecia Take one(1) tablet two(2) times daily. 0 10/10/2005 Active Comment on above: Take one(1) tablet two(2) times daily. ceFAZolin 2000 mg injection (1 source) Cephalosporin Antibacterial Start: 01-23-2022 End: 01-24-2022 take 2 g intravenously every eight hours ceFAZolin (ANCEF) 2 g in dextrose 100 mL premix IVPB celecoxib 200 mg oral capsule (20 sources) Nonsteroidal Anti-inflammatory Drug Start: 11-12-2021 End: 01-23-2022 take 1 capsule by mouth once daily celecoxib 200 MG capsule Take 200 mg by mouth daily. 0 11/12/2021 01/23/2022 Discontinued (Stop Taking at Discharge) Start: 04-18-2011 End: 05-09-2022 take 1 capsule by mouth twice daily celecoxib 200 mg Cap 200 mg = 1 cap(s), Oral, BID, Refills(s) 0, Inflammation Start Date: 07/29/15 Status: Ordered Comment on above: Take 1 capsule by [facility] twice daily. TAKE [address] [facility] TWICE A DAY cholecalciferol 0.025 mg oral tablet (7 sources) Vitamin D Start: 04-18-20 11 take 1 tablet by mouth once daily Cholecalciferol, Vitamin D3, 1,000 unit ORAL Tab Take 1 tablet by mouth once daily. 0 04/18/2011 Active Comment on above: Take 1 tablet by [facility] once daily. sugar-free cholestyramine resin 4000 mg powder for oral suspension (14 sources) Bile Acid Sequestrant Start: 01-25-20 End: 01-25-20 22 4 g, Oral, DAILY, First dose on Sat01/24/22 at 0900, Until Discontinued take 4 g by mouth on ce daily in the morning cholestyramine 4 g Pack Take 4 g by mout h daily every morning. 0 Active take 1 g by mouth once daily Cho lestyramine 4 GM 1 PACK p.o. Daily Active docusate sodium 50 mg / sennosides, longterm 8.6 mg oral tablet (1 source) Start: 01-23-2022 End: 01-24-2022 senna-docusate (SENOKOT-S) 8.6-50 MG per tablet 2 tablet 0.4 ml enoxaparin sodium 100 mg/ml prefilled syringe (6 sources) Low Molecular Weight Heparin Start: 01-24-2022 End: 01-24-2022 Enoxaparin Sodium (LOVENOX) injection 40 mg Start: 01-23-2022 End: 02-22-2022 inject 0.4 mL by subcutaneous injection once daily Enoxaparin Sodium 40 MG/0.4ML injection Inject 0.4 mL under the skin daily. 12 mL 0 01/23/2022 Active [id number] 0.3 ml EPINEPHrine 1 mg/ml auto-injector (7 sources) alpha-Adrenergic Agonist, beta-Adrenergic Agonist, Catecholamine Start: 01-06-2014 EPIPEN 2-PANCHITO 0.3 mg/0.3 mL (1:1,000) atIn fluticasone / salmeterol (20 sources) Corticosteroid, beta2-Adrenergic Agonist Start: 10-01-2022 take 1 puff(s) by inhalation in the morning Advair Diskus 250 mcg-50 mcg inhalation powder See Instructions, 60 blister(s), Refill(s) 1, one puff inhales in the morning and night, [facility]/pharmacy #[id number], 143.2, cm, 10/01/22 7:16:00 EDT, Height/Length Dosing, 86.8, kg, 10/01/22 7:16:00 EDT, Weight Dosing Start Date: 10/01/22 Status: Ordered Start: 01-23-2022 End: 01-24-2022 take 2 puff(s) by inhalation twice daily 2 puff, Inhalation, 2 TIMES DAILY, First dose on Sat01/23/22 at 1745, Until Discontinued Start: 12-21-2021 take 1 puff(s) by in halation twice daily Wixela Inhub 250-50 MCG/ACT Aerosol Powder, breath activated inhaler INHALE 1 PUFF INTO LUNGS TWICE DAILY. USE REGULARLY FOR BENEFIT. RINSE MOUTH AFTER USE 0 12/21/2021 Active Start: 01-05-2004 ADVAIR 250/50 DISKUS one puff bid 0 01/05/2004 Active take 1 puff(s) by in halation every twelve hours Advair Diskus 500-50 MCG/DOSE 1 puff Inhalation every 12 hrs Active fluticasone-salm eterol (ADVAIR DISKUS) 250-50 mcg/dose diskus inhaler Inhale 1 puff 2 (two) times a day Active Comment on above: one puff bid 1 ml HYDROmorphone hydrochloride 1 mg/ml cartridge (2 sources) Opioid Agonist Start: 01-24-20 End: 01-25-20 take 0.5 mg intravenously every four hours as needed HYDROmorphone (DILAUDID) injection 0.5 mg Start: 05-16-2017 End: 05-16-2017 HYDROmorphone (DILAUDID) inj ection 0.5 mg 0.5 mg, Intravenous, Every 5 min PRN, moderate to severe pain, Starting Ramona 05/16/17 at 1340, For 6 doses, PACU (only), [] Give if fentanyl not effective or not ordered. [] Do not give more than 3 mg total. Given 05/16/2017 14:09 EST 0.5 mg insulin lispro (HumaLOG) injection (1 source) Start: 01-23-2022 End: 01-24-2022 insulin lispro (HumaLOG) injection lansoprazole 30 mg delayed release oral capsule (20 sources) Proton Pump Inhibitor Start: 01-09-2014 take 1 capsule by mouth once daily at bedtime LANSOPRAZOLE 30 mg capsule Take 1 capsule by mouth daily at bedtime. 0 01/09/2014 Active take 1 capsule by mouth once joey ly Prevacid 15 MG 1 capsule before a meal Orally Once a day for 30 day(s) Active Comment on above: Take 1 capsule by [facility] daily at bedtime. loratadine 10 mg oral tablet (1 source) Start: End: take 20 mg by mouth once daily 20 mg, Oral, DAILY, First dose on Sat01/24/22 at 0900, Until Discontinued multivitamin tablet 1 tablet (1 source) Start: End: take 1 tablet by mouth once daily in the morning 1 tablet, Oral, DAILY EVERY MORNING, First dose on Sat01/23/22 at 1745, Until Discontinued oxymetazoline hydrochloride 0.5 mg/ml nasal spray (1 source) End: take 2 spray(s) nasal route twice daily oxymetazoline (AFRIN) 0.05 % nasal spray Instill 2 sprays into each nostril 2 (two) times a day. 05/13/2017 Discontinued rivaroxaban 10 mg oral tablet (11 sources) Factor Xa Inhibitor take 1 tablet by mouth every twenty-four hours Xarelto 10 MG 1 tablet with food Orally Once a day Not-Taking 200 ml ropivacaine hydrochloride 2 mg/ml injection (1 source) Amide Local Anesthetic Start: End: ropivacaine (NAROPIN) 0.2 % On-Q pump 750 mL ropivacaine (NAROPIN) 1 % 400 mg, EPINEPHrine PF (ADRENALIN) 1 MG/ML 1 mg, ketorolac (TORADOL) 30 MG/ML 30 mg, cloNIDine 100 MCG/ML 157 mcg, sodium chloride 0.9% 45 mL 88.57 mL (total volume) (1 source) Start: End: ropivacaine (NAROPIN) 1 % 400 mg, EPINEPHrine PF (ADRENALIN) 1 MG/ML 1 mg, ketorolac (TORADOL) 30 MG/ML 30 mg, cloNIDine 100 MCG/ML 157 mcg, sodium chloride 0.9% 45 mL 88.57 mL (total volume) 72 hr scopolamine 0.0139 mg/hr transdermal system (1 source) Anticholinergic Start: End: scopolamine (TRANSDERM-SCOP) 1 mg over 3 days patch 1 patch 1 patch, Transdermal, Once, [facility] 05/16/17 at 1300, For 1 dose, Pre-Procedure, Apply to left mastoid. Patch Applied 05/16/2017 12:11 EST 1 patch Behind Left Ear 1000 ml sodium chloride 9 mg/ml injection (3 sources) Start: End: sodium chloride 0.9 % irrigation Start: 01-23-2022 End: 01-24-2022 sodium chloride 0.9% IV solu tion sodium phosphate, dibasic 35.5 mg/ml / sodium phosphate, monobasic 96.4 mg/ml enema (1 source) Start: 01-23-2022 End: 01-24-2022 sodium phosphate w/sodium biphosphate (FLEETS) enema 1 enema Symbicort 160/4.5 inhalation aerosol with adapter (1 source) Start: 09-05-2022 take 1 dose by inhalation twice daily Symbicort 160/4.5 inhalation aerosol with adapter 2 puff(s), Inhalation, BID, 1 EA, Refill(s) 2, [facility]/pharmacy #[id number], 144.8, cm, 09/05/22 15:24:00 EST, Height/Length Dosing, 82.7, kg, 09/05/22 15:24:00 EST, Weight Dosing Start Date: 09/05/22 Status: Ordered technetium (Tc-99m) sestamibi (CARDIOLITE) injection 25 millicurie 25 millicurie, Intravenous, Once, 05/14/17 at 0845, For 1 dose Contrast Administered 05/14/2017 08:45 EST 25 millicuries (1 source) Start: 05-14-2017 End: 05-14-2017 technetium (Tc-99m) sestamibi (CARDIOLITE) injection 25 millicurie 25 millicurie, Intravenous, Once, 05/14/17 at 0845, For 1 dose Contrast Administered 05/14/2017 08:45 EST 25 millicuries technetium (Tc-99m) sestamibi (CARDIOLITE) injection 8 millicurie 8 millicurie, Intravenous, Once, 05/14/17 at 0800, For 1 dose Contrast Administered 05/14/2017 07:05 EST 8 millicuries (1 source) Start: 05-14-2017 End: 05-14-2017 technetium (Tc-99m) sestamibi (CARDIOLITE) injection 8 millicurie 8 millicurie, Intravenous, Once, 05/14/17 at 0800, For 1 dose Contrast Administered 05/14/2017 07:05 EST 8 millicuries tranexamic acid 650 mg oral tablet (1 source) Antifibrinolytic Agent Start: 01-23-2022 End: 01-23-2022 tranexamic acid (LYSTEDA) tablet 1,950 mg vancomycin 1000 mg injection (1 source) Glycopeptide Antibacterial Start: 01-23-2022 End: 01-24-2022 vancomycin (VANCOCIN) injection zafirlukast 20 mg oral tablet (20 sources) Leukotriene Receptor Antagonist Start: 04-18-2011 take 1 tablet by mouth twice daily zafirlukast (ACCOLATE) 20 mg tablet Take 1 tablet by mouth twice daily. 0 04/18/2011 Active Comment on above: Take 1 tablet by hermelinda twice daily. zolpidem tartrate 5 mg oral tablet (1 source) gamma-Aminobutyric Acid-ergic Agonist Start: 01-23-2022 End: 01-24-2022 zolpidem (AMBIEN) tablet 5 mg Problems Active Problems Problem Classification Problem Date Documented Da te Episodic/Chronic Acute bronchitis (16 sources) Acute bronchitis; Translations: [Acute bronchitis] Episodic Allergic reactions (7 sources) Atopic dermatitis; Translations: [Other atopic dermatitis] Onset: 6 05-27-2006 Chronic Asthma (20 sources) Asthmatic bronchitis; Translations: [Unspecified asthma, uncomplicated] Onset: 1 10-26-2019 Chronic Cataract (2 sources) After-cataract of bilateral eyes; Translations: [Other secondary cataract, bilateral] Onset: 4 08-06-2023 Chronic Chronic obstructive pulmonary disease and bronchiectasis (3 sources) Bronchitis, not specified as acute or chronic; Translations: [Bronchitis] Episodic Deficiency and other anemia (1 source) Anemia of chronic disease; Translations: [Anemia in other chronic diseases classified elsewhere] Chronic Deficiency and other anemia (17 sources) Anemia; Translations: [Anemia, unspecified] Onset: 3 06-08-2021 Episodic Deficiency and other anemia (1 source) Hemoglobin low 05-10-2023 Episodic Diabetes mellitus with complications (20 sources) Hypoglycemia due to diabetes mellitus; Translations: [Type 2 diabetes mellitus with hypoglycemia without coma] Onset: 1 Resolved: 2 Chronic Diabetes mellitus without complication (8 sources) Type 2 diabetes mellitus without complication; Translations: [Type 2 diabetes mellitus without complications] Onset: 7 Chronic Digestive congenital anomalies (2 sources) Congenital web of esophagus; 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] Onset: 2 Chronic Disorders of lipid metabolism (20 sources) Hyperlipidemia; Translations: [Hyperlipidemia, unspecified] Onset: 2 Resolved: 2 05-06-2012 Chronic Diverticulosis and diverticulitis (20 sources) Diverticular disease; Translations: [Diverticulosis] 06-08-2021 Chronic Esophageal disorders (20 sources) Gastro-esophageal reflux disease without esophagitis; 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] Onset: 7 06-08-2021 Chronic Essential hypertension (20 sources) Hypertensive disorder; Translations: [Essential (primary) hypertension] Chronic Fluid and electrolyte disorders (1 source) Dehydration; Translations: [DEHYDRATION] Onset: 3 Episodic Hemorrhoids (16 sources) Hemorrhoids 06-08-2021 Episodic Intestinal infection (3 sources) Viral gastritis 11-22-2022 Episodic Joint disorders and dislocations; trauma-related (3 sources) Derangement of knee 09-11-2022 Chronic Menopausal disorders (1 source) Hormone replacement therapy; Translations: [HORMONE REPLACEMENT THERAPY] Onset: 3 Episodic Mycoses (16 sources) Candidiasis of mouth 05-06-2021 Episodic Nausea and vomiting (20 sources) Nausea; Translations: [Nausea] Onset: 2 04-24-2021 Episodic Noninfectious gastroenteritis (4 sources) Colitis; Translations: [Noninfective gastroenteritis and colitis, unspecified] Onset: 3 11-22-2022 Episodic Nutritional deficiencies (17 sources) Vitamin D deficiency; Translations: [Vitamin D deficiency, unspecified] Chronic Osteoarthritis (20 sources) Osteoarthritis of foot joint; Translations: [Degenerative joint disease of ankle AND/OR foot] Onset: 5 09-14-2016 Chronic Osteoporosis (11 sources) Postmenopausal osteoporosis; Translations: [Age-related osteoporosis without current pathological fracture] Onset: 2 05-07-2022 Chronic Other aftercare (16 sources) Long-term current use of insulin; 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] Episodic Other aftercare (1 source) Other exterminator termite (current) drug therapy; Translations: [OTH LURE MAKER CURRENT DRUG THERAPY] Onset: 3 Episodic Other connective tissue disease (3 sources) History of right total knee replacement; Translations: [Presence of right artificial knee joint] Chronic Other connective tissue disease (3 sources) Presence of right artificial knee joint; Translations: [PRESENCE RT ARTIFICIAL KNEE JOINT] Onset: 2 Chronic Other connective tissue disease (1 source) Artificial knee joint present; Translations: [Presence of unspecified artificial knee joint] Onset: 3 03-01-2023 Chronic Other connective tissue disease (1 source) History of prosthetic unicompartmental arthroplasty of right knee; Translations: [Presence of right artificial knee joint] Onset: 3 03-01-2023 Chronic Other connective tissue disease (4 sources) Pain in left foot; Translations: [PAIN IN LEFT FOOT] Onset: 3 Episodic Other diseases of veins and lymphatics (3 sources) Chronic peripheral venous hypertension with lower extremity complication 09-11-2022 Chronic Other gastrointestinal disorders (16 sources) Alteration in bowel elimination 04-24-2021 Episodic Other gastrointestinal disorders (16 sources) Loose stool 09-14-2021 Episodic Other gastrointestinal disorders (1 source) Abnormal feces; Translations: [Other fecal abnormalities] Onset: 2 Episodic Other gastrointestinal disorders (14 sources) Dysphagia; Translations: [Dysphagia, unspecified] Onset: 2 Episodic Other gastrointestinal disorders (1 source) H/O: gastrointestinal disease; Translations: [Personal history of other diseases of the digestive system] Onset: 2 Episodic Other hematologic conditions (1 source) ESR raised; Translations: [Elevated erythrocyte sedimentation rate] Episodic Other liver diseases (1 source) Abnormal levels of other serum enzymes; Translations: [ABNORMAL LEVELS OTHER SERUM ENZYMES] Onset: 3 Episodic Other lower respiratory disease (14 sources) Cough; Translations: [Cough] 03-20-2023 Episodic Other lower respiratory disease (1 source) Unspecified acute lower respiratory infection Episodic Other lower respiratory disease (3 sources) Hypoxemia 09-11-2022 Episodic Other lower respiratory disease (1 source) Personal history of pneumonia (recurrent); Translations: [PERSONAL HX OF PNEUMONIA RECURRENT] Onset: 3 Episodic Other lower respiratory disease (4 sources) Shortness of breath; Translations: [SHORTNESS OF BREATH] Onset: 2 Episodic Other lower respiratory disease (1 source) Dyspnea 03-20-2023 Episodic Other lower respiratory disease (1 source) Wheezing 03-20-2023 Episodic Other nervous system disorders (16 sources) Neuropathy; Translations: [Polyneuropathy, unspecified] Chronic Other nervous system disorders (1 source) Polyneuropathy, unspecified; Translations: [Neuropathy G62.9] Onset: 1 Resolved: 1 Chronic Other non-epithelial cancer of skin (1 source) Personal history of other malignant neoplasm of skin; Translations: [PERSONAL HX OTH MALIG NEOPLASM SKIN] Onset: 3 Episodic Other non-traumatic joint disorders (6 sources) Rotator cuff arthropathy of left shoulder; Translations: [Other specific arthropathies, not elsewhere classified, left shoulder] Onset: 2 05-07-2022 Chronic Other non-traumatic joint disorders (1 source) Derangement of left shoulder joint; Translations: [Other specific joint derangements of left shoulder, not elsewhere classified] Onset: 3 03-01-2023 Chronic Other non-traumatic joint disorders (1 source) Disorder of joint of shoulder region; Translations: [Other specific arthropathies, not elsewhere classified, left shoulder] Onset: 3 03-01-2023 Chronic Other nutritional; endocrine; and metabolic disorders (20 sources) Obesity; Translations: [Other obesity] Onset: 7 05-06-2021 Chronic Other nutritional; endocrine; and metabolic disorders (13 sources) Body mass index 30+ - obesity 09-14-2021 Chronic Other nutritional; endocrine; and metabolic disorders (20 sources) Body mass index 40+ - severely obese; Translations: [Body mass index (BMI) 40.0-44.9, adult] 09-11-2022 Chronic Other nutritional; endocrine; and metabolic disorders (1 source) Obesity, unspecified; Translations: [Obesity (BMI 35.0-39.9 without comorbidity) E66.9] Onset: 1 Resolved: 1 Chronic Other nutritional; endocrine; and metabolic disorders (16 sources) Obese class II; Translations: [Body mass index (BMI) 35.0-35.9, adult] Chronic Other nutritional; endocrine; and metabolic disorders (1 source) Body mass index (BMI) 35.0-35.9, adult Onset: 2 Resolved: 2 Chronic Other nutritional; endocrine; and metabolic disorders (1 source) Hypomagnesemia; Translations: [HYPOMAGNESEMIA] Onset: 3 Chronic Other nutritional; endocrine; and metabolic disorders (3 sources) Unintentional weight loss 09-11-2022 Episodic Other upper respiratory disease (3 sources) Allergic rhinitis 09-11-2022 Chronic Other upper respiratory disease (1 source) Nasal congestion 03-20-2023 Episodic Other upper respiratory infections (4 sources) Chronic sinusitis; Translations: [Chronic sinusitis, unspecified] Onset: 3 Chronic Other upper respiratory infections (1 source) Acute upper respiratory infection, unspecified Episodic Otitis media and related conditions (3 sources) Finding of fluid behind tympanic membrane; Translations: [Otitis media] 05-10-2023 Episodic Pulmonary heart disease (7 sources) H/O: pulmonary embolus; Translations: [Personal history of pulmonary embolism] Onset: 2 Episodic Residual codes; unclassified (1 source) Past history of procedure; Translations: [Other specified postprocedural states] Onset: 2 Episodic Residual codes; unclassified (1 source) Procedure carried out on subject; Translations: [Encounter for prophylactic measures, unspecified] Onset: 2 Episodic Residual codes; unclassified (1 source) Acquired absence of other specified parts of digestive tract; Translations: [ACQ ABSENCE OTH PART DIGESTV TRACT] Onset: 3 Episodic Residual codes; unclassified (1 source) Acquired absence of both cervix and uterus; Translations: [ACQUIRED ABSENCE BOTH CERVIX AND UTERUS] Onset: 3 Episodic Rheumatoid arthritis and related disease (20 sources) Rheumatoid arthritis, unspecified; Translations: [Rheumatoid arthritis] Onset: 1 04-18-2011 Chronic Syncope (2 sources) Syncope and collapse; Translations: [Syncope and collapse] Onset: 2 Episodic Thyroid disorders (20 sources) Acquired hypothyroidism; Translations: [Hypothyroidism, unspecified] Onset: 6 Chronic Unclassified (2 sources) Presence of functional implant, unspecified; Translations: [Presence of functional implant, unspecified] Onset: 7 Chronic Unclassified (14 sources) Electrocardiogram abnormal; Translations: [Abnormal electrocardiogram [ECG] [EKG]] Onset: 7 Episodic Unclassified (1 source) Unknown / UNK(Unknown) Onset: 7 Unclassified (13 sources) Patient encounter status 05-11-2022 Unclassified (1 source) PERSONAL HISTORY OF COVID-19; Translations: [PERSONAL HISTORY OF COVID-19] Onset: 3 Unclassified (1 source) CONTACT W/AND (SUSP) EXPOS COVID-19; Translations: [CONTACT W/AND (SUSP) EXPOS COVID-19] Onset: 3 Unclassified (3 sources) COUGH, UNSPECIFIED; Translations: [COUGH, UNSPECIFIED] Onset: 2 Unclassified (1 source) Exposure to 2019 novel coronavirus 03-20-2023 Urinary tract infections (2 sources) Urinary tract infection, site not specified Episodic Past or Other Problems Problem Classification Problem Date Documented Date Episodic/Chronic Acquired foot deformities (6 sources) Acquired equinus deformity of foot; Translations: [Acquired equinus deformity of left foot] Onset: 05-24-2015 05-24-2015 Episodic Administrative/socia l admission (2 sources) Dietary counseling and surveillance; Translations: [Dietary counseling and surveillance Z71.3] Onset: 04-05-2021 Resolved: 11-01-2021 Episodic Complication of device; implant or graft (15 sources) Mechanical complication of internal fixation device; Translations: [Disorders of musculoskeletal implants and repairs] Onset: 10-28-2015 05-16-2017 Episodic E Codes: Natural/environment (1 source) Exposure to other specified factors, initial encounter; Translations: [EXPOSURE OTHER SPEC FACTORS INITIAL] Onset: 05-09-2022 Episodic Esophageal disorders (1 source) Esophageal disorders Gastritis and duodenitis (1 source) Gastritis, unspecified, without bleeding; Translations: [GASTRITIS UNS WITHOUT BLEEDING] Onset: 05-09-2022 Episodic Genitourinary symptoms and ill-defined conditions (19 sources) Dysuria; Translations: [Dysuria] Onset: 10-05-2022 Episodic Immunizations and screening for infectious disease (20 sources) Contact with and (suspected) exposure to other viral communicable diseases; Translations: [Anti-nuclear factor positive] Onset: 05-07-2022 Episodic Medical examination/evaluati on (6 sources) Preoperative state; Translations: [Encounter for preprocedural cardiovascular examination] Onset: 05-13-2017 Episodic Other acquired deformities (6 sources) Deformity of calcaneum; Translations: [Deformity of left calcaneus] Onset: 05-24-2015 09-14-2016 Episodic Other aftercare (6 sources) H/O: high risk medication; Translations: [Other fci (current) drug therapy] Onset: 05-07-2022 05-07-2022 Episodic Other connective tissue disease (12 sources) Posterior tibial tendinitis, left leg; Translations: [Non-traumatic tendon rupture] Onset: 06-29-2012 05-24-2015 Episodic Other connective tissue disease (6 sources) Pain of bilateral hands; Translations: [Pain in right hand] Onset: 05-07-2022 05-07-2022 Episodic Other connective tissue disease (1 source) Tear of right rotator cuff; Translations: [Unspecified rotator cuff tear or rupture of right shoulder, not specified as traumatic] Onset: 03-01-2023 03-01-2023 Episodic Other connective tissue disease (1 source) Tear of left rotator cuff; Translations: [Unspecified rotator cuff tear or rupture of left shoulder, not specified as traumatic] Onset: 03-01-2023 03-01-2023 Episodic Other injuries and conditions due to external causes (1 source) Unspecified injury of left shoulder and upper arm, initial encounter Onset: 08-28-2021 Resolved: 08-28-2021 Episodic Other injuries and conditions due to external causes (1 source) Unspecified injury of right wrist, hand and finger(s), initial encounter Onset: 08-28-2021 Resolved: 08-28-2021 Episodic Other injuries and conditions due to external causes (4 sources) Food in esophagus causing other injury, initial encounter; Translations: [FOOD ESOPH CAUS OTH INJURY INIT ENC] Onset: 05-04-2022 Episodic Other lower respiratory disease (1 source) Dyspnea, unspecified; Translations: [DYSPNEA UNSPECIFIED] Onset: 04-11-2022 Episodic Other nervous system disorders (5 sources) Other acute postprocedural pain; Translations: [Pain in joint, lower leg] Onset: 02-22-2022 Episodic Other non-traumatic joint disorders (2 sources) Pain in right knee; Translations: [Pain in joint, lower leg] Onset: 02-22-2022 Episodic Other non-traumatic joint disorders (6 sources) Bilateral wrist pain; Translations: [Pain in right wrist] Onset: 05-07-2022 05-07-2022 Episodic Other skin disorders (7 sources) Alopecia areata; Translations: [Alopecia areata, unspecified] Onset: 05-27-2006 05-27-2006 Episodic Other upper respiratory disease (2 sources) Nasal congestion; Translations: [NASAL CONGESTION] Onset: 01-04-2022 Episodic Residual codes; unclassified (6 sources) FH: Gout; Translations: [Family history of other diseases of the musculoskeletal system and connective tissue] Onset: 05-07-2022 05-07-2022 Episodic Residual codes; unclassified (6 sources) FH: Rheumatoid arthritis; Translations: [Family history of arthritis] Onset: 05-07-2022 05-07-2022 Episodic Unclassified (4 sources) Other specified health status; Translations: [Other specified personal risk factors, not elsewhere classified] Onset: 05-13-2017 Episodic Unclassified (1 source) No contraindication to deep vein thrombosis (DVT) prophylaxis Unclassified (1 source) Risk factors for obstructive sleep apnea Unclassified (1 source) COMPLICATION OF HARDWARE Onset: 05-16-2017 Unclassified (1 source) Cough R05.9 Onset: 12-15-2021 Resolved: 12-15-2021 Unclassified (1 source) Persistent cough R05.3 Unclassified (1 source) Subacute cough R05.2 Unclassified (1 source) History of SARS-CoV-2; Translations: [Personal history of COVID-19] Onset: 05-22-2022 Unclassified (1 source) COUGH, UNSPECIFIED; Translations: [COUGH, UNSPECIFIED] Onset: 12-29-2021 Viral infection (5 sources) COVID-19; Translations: [Disease caused by 2019-nCoV] Onset: 04-11-2022 Results Test Name Value Interpretation Reference Range [facility] Family Medicine Office/Clini c Noteon 08-02-2023 Family Medicine Office/Clinic Note HPI Staff Carolina is a 62 year old female presenting for acute visit Respiratory C/O: Onset: 3 days ago Body aches: no Chest congestion: yes heaviness in chest Chills: no Cough: yes Sputum production: yes yellow Sore throat: yes Ear complaints: yes right ear ache Eye itching/watering: yes left eye Fever: no Headache: yes Nasal congestion: yes Nasal discharge: no Poor appetite: no Reduced activity: no Sinus pain/pressure: yes Sneezing: yes Wheezing: yes mostly at night Ill contacts: no Remedies tried: using INH, Advil cold and sinus Questions/Concerns: History of Present Illness pt prestent today c/o cough congestion and era pain Review of Systems PHQ Score Initial Depression Screen Score: 0 SCORE ROS - Provider Constitutional: no fever, no chills, no sweats, no fatigue Respiratory: no shortness of breath, no cough, no orthopnea, no wheezing. Cardiovascular: no chest pain, no palpitations, no edema. Neurologic: no headache, no dizziness, no numbness, no weakness. Physical Exam Vitals & Measurements HR: 78(Peripheral) RR: 18 BP: 132/86 SpO2: 98% HT: 56 in HT: 143.2 cm WT: 88.35 kg WT: 194.37 lb BMI: 43.08 General: alert, no acute distress ENMT: oral mucosa moist, no pharyngeal erythema or exudate, Right TM red, JOHANNA TM full of fluid Cardiovascular: regular rate and rhythm, normal peripheral perfusion Respiratory: Lungs CTA, respirations non labored Extremities: no deformity, no trauma Neurological: oriented x 4, LOC appropriate for age, CN II-XII intact, motor strength equal & normal bilaterally, speech normal Assessment/Plan 1. Right otitis media (H66.91: Otitis media, unspecified, right ear) right TRM red and JOHANNA TM full of clear fluid 2. Cough (R05.9: Cough, unspecified) deep cough. continue inhalers. will order medrol dose pack 3. BMI 40.0-44.9, adult (Z68.41: Body mass index [BMI] 40.0-44.9, adult) bmi education complete 4. Non-smoker (Z78.9: Other specified health status) continue not smoking Orders: azithromycin, = 1 packet(s), Oral, As Directed, as directed on package labeling, X 5 day(s), # 6 tab(s), Refills(s) 0, Pharmacy: [facility]/pharmacy #[id number], 143.2, cm, 08/02/23 14:19:00 EST, Height/Length Dosing, 88.3, kg, 08/02/23 14:19:00 EST, Weight Dosing methylPREDNISolone, = 1 packet(s), Oral, Once, as directed on package labeling, # 21 tab(s), Refills(s) 0, Pharmacy: [facility]/pharmacy #[id number], 143.2, cm, 06/28/23 10:53:00 EST, Height/Length Dosing, 98, kg, 06/28/23 10:53:00 EST, Weight Dosing methylPREDNISolone, = 1 packet(s), Oral, Once, as directed on package labeling, # 21 tab(s), Refills(s) 0, Pharmacy: [facility]/pharmacy #[id number], 143.2, cm, 08/02/23 14:19:00 EST, Height/Length Dosing, 88.3, kg, 08/02/23 14:19:00 EST, Weight Dosing Follow-up No qualifying data available Problem List/Past Medical History Ongoing Allergic rhinitis Anemia Annual physical exam Bilateral otitis media BMI 40.0-44.9, adult Bronchitis Chronic peripheral venous hypertension with lower extremity complication Chronic sinusitis Colitis Cough Derangement of knee Diverticular disease Esophageal web Exposure to COVID-19 virus Fluid level behind tympanic membrane of both ears Gastroesophageal reflux disease without esophagitis Hemorrhoids Hx of pulmonary embolus Hypothyroidism Hypoxemia Low hemoglobin Moderate asthma without complication Morbid obesity with BMI of 40.0-44.9, adult Nasal congestion Non-insulin dependent type 2 diabetes mellitus Obesity due to excess calories Oral thrush Pre-op exam Rheumatoid arthritis involving multiple sites with positive rheumatoid factor Right otitis media Shortness of breath Viral gastritis Weight loss, unintentional Wheezing Historical Arthritis Asthma Change in bowel habits COVID-19 Dysphagia Loose stools Nausea Procedure/Surgical History EGD (esophagogastroduoden oscopy) gastric outlet reduction (05/21/2022), Colonoscopy (05/09/2021), EGD - Esophagogastroduodeno scopy (05/09/2021), Cataract extraction, Cholecystectomy, Foot repair, Hysterectomy, Knee replacement, Shoulder, Tonsillectomy and adenoidectomy; age 12 or over. Medications Advair Diskus 250 mcg-50 mcg inhalation powder, See Instructions, 1 refills azithromycin 250 mg Tab, 1 packet(s), Oral, As Directed celecoxib 200 mg Cap, 200 mg= 1 cap(s), Oral, BID cyclobenzaprine 10 mg Tab, 10 mg= 1 tab(s), Oral, TID, PRN DuoNeb 2.5 mg-0.5 mg/3 mL Soln-Inh, 3 mL, NEB, 6x/Day, 1 refills Flonase 0.05 mg/inh nasal spray, 2 spray(s), Nasal, Daily levothyroxine 137 mcg (0.137 mg) Tab, See Instructions methylPREDNISolone 4 mg tab dosepak, 1 packet(s), Oral, Once montelukast 10 mg Tab, See Instructions Ozempic (1 mg dose), See Instructions Pantoprazole [address] Tab, 40 mg= 1 tab(s), Oral, Daily, 3 refills ProAir RespiClick 90 mcg/inh inhalation powder, 2 puff(s), Inhalation, q4hr, PRN, 11 refills Prolia, 60 mg, SubCutaneous, q6mo Rinvoq 15 m (more content not included)... Normal [facility] Comment on above: Result Comment: Elec tronically Signed By: Marisela Canales\.dusty\Date and Time Signed: 08/02/23 14:33 EST Consultation Noteon 07-24-19 Consultation Note [id number] [facility] Rene[facility]20[facility] CAROLINA GOMEZ ([id number]) 1960 F Date Time Provider Department 07/17/23 STEVO NEFF During your visit today, we recorded the following information about you: Mary Layne LPN 07/17/2023 2:27 PM Signed Received labs from [facility]. Results placed on your desk for review. Stevo Neff MD 07/18/2023 6:22 AM Signed Please Call patient if MyChart note not read to review results/released to My Chart if tests completed at [facility]: Mildly low potassium- increase potassium intake, care per primary care provider. Borderline mildly low normal vitamin D- take over the counter vitamin D [id number] International Units daily with food. Rest of labs normal. Recheck nonfasting labs in 3months, orders have been placed. Please send orders cmp, cbc, esr, crp, vitamin D, quantiferon tb. Orders in epic. Please fax results to rheum office. Thank you! Happy to further review and discuss at follow up visit. Continue rest of treatment plan per instructions at last office visit. Thank you. Warren nuñez 07/15/23 low potassium 3.4;normal wbc 9.7, hgb 12.6, plts 278, glucose 100, creat 0.5,calcium 9, alkaline phosphatase 55, ast 17, alt 15, crp<1 (normal<1.9mg/dL), esr 19 (NL0-34mm/hr), vitamin D 31.6; 05/07/22 +RF26, +CCP 205, crp 0.9 (1.3), wbc 14.66 (7.11);low vitamin D 27.3;normal rest of cbc, cmp, esr 16, uric acid 3, vitamin b12-630;negative aileen ifa, hepatitis panel, quantiferon tb; Monika Menendez MA 07/18/2023 3:10 PM Signed Notified patient of below, verbal understanding. lab orders mailed to pt's home Allergies As of Date: 07/17/2023 Noted Allergy Reaction KEFLEX (CEPHALEXIN) 10/18/2004 No Latex Allergy [Other] 10/18/2004 PENICILLINS 01/05/2004 Date Reviewed: 05/07/2022 Reviewed by: Stevo Neff MD - Fully Assessed Reason for Visit: Results [95] Cmt: [id number] Primary Visit Diagnosis:Screening-p ulmonary TB [Z11.1] Order(s):BLOOD TB SCREEN [SQINFTBP] Order #: [id number] FUTURE Prescriptions as of 07/18/2023 - RINVOQ 15 mg tablet TAKE 1 TABLET BY MOUTH 1 TIME A DAY. - celecoxib (CELEBREX) 200 mg capsule TAKE 1 CAPSULE BY MOUTH TWICE A DAY - ergocalciferol 50,000 unit capsule (VITAMIN D2, DRISDOL) (take by mouth with food twice a week, ONE CAPSULE ON SATURDAY AND ONE ON SATURDAY) FOR A TOTAL OF 8 WEEKS. - levothyroxine (SYNTHROID) 75 mcg tablet TAKE 1.5 TABLETS ON SATURDAY, SATURDAY, SATURDAY, SATURDAY AND 2 TABLETS THE OTHER 3 DAYS - EPIPEN 2-PANCHITO 0.3 mg/0.3 mL (1:1,000) atIn - LANSOPRAZOLE 30 mg capsule Take 1 capsule by mouth daily at bedtime. - zafirlukast (ACCOLATE) 20 mg tablet Take 1 tablet by mouth twice daily. - fluticasone (FLONASE) 50 mcg/actuation nasal spray 1 [place] daily at bedtime. in each nostril. - Cholecalciferol, Vitamin D3, 1,000 unit ORAL Tab Take 1 tablet by mouth once daily. - Doxycycline Monohydrate 40 mg capsule Take 1 capsule by mouth. - CITRACAL 500 MG (2,376 MG) EFFERVESCENT TAB Take one(1) tablet two(2) times daily. 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 [*11/25/2015 Rotator cuff arthropathy of left shoulder [M12.*05/07/2022 Bilateral wrist pain [M25.531, M25.532] 05/07/2022 Bilateral hand pain [M79.641, M79.642] 05/07/2022 Family history of gout [Z82.69] 05/07/2022 Secondary osteoarthritis of multiple sites [M15*05/07/2022 Family history of rheumatoid arthritis [Z82.61] 05/07/2022 AILEEN positive [R76.8] 05/07/2022 Rheumatoid arthritis of multiple sites without *05/07/2022 Postmenopausal osteoporosis of multiple sites [*05/07/2022 Long-term use of high-risk medication [Z79.899] 05/07/2022 Cyclic citrullinated peptide (CCP) antibody pos*05/09/2022 Rheumatoid factor positive [R76.8] 05/09/2022 Encounter Status:Closed by MONIKA MENENDEZ on 07/18/23 Normal [facility] Simmons Auto Diffon 07-15-2023 Basophils/100 WBC (Bld) 0.3 % Normal 0.0-2.0 [facility] Comment on above: Order Comment: Order Added by Discern Expert. Performed By: #### 2 069520, 57740744, 9097478, 49902350, 5729327, 333345964, 7314414 ####[address] [place] [address] Basophils/Leukocyte s Auto (Bld) [Pure # fraction] 0.0 E9/L Normal 0.0-0.2 [facility] Comment on above: Order Comment: Order Added by Discern Expert. Performed By: #### 2 094902, 61177127, 2640623, 21737787, 3832641, 229003081, 8267319 ####[address] [address] Eosinophils/100 WBC (Bld) 0.8 % Normal 0.0-8.0 [facility] Comment on above: Order Comment: Order Added by Discern Expert. Performed By: #### 2 868768, 46326997, 4953448, 49643340, 8705775, 434879817, 1881398 ####[address] [place] [address] Eosinophils/Leukocy john paul Auto (Bld) [Pure # fraction] 0.1 E9/L Normal 0.0-0.5 [facility] Comment on above: Order Comment: Order Added by Discern Expert. Performed By: #### 2 722522, 20671843, 0885586, 26271238, 3988915, 882400266, 1158993 ####[address] [place] [address] Lymphocytes/100 WBC (Bld) 14.5 % Normal 14.0-50.0 [facility] Comment on above: Order Comment: Order Added by Discern Expert. Performed By: #### 2 666584, 64902624, 4839957, 66831121, 4866820, 170531269, 1246218 ####[address] [place] [address] Lymphocytes/Leukocy john paul Auto (Bld) [Pure # fraction] 1.4 E9/L Normal 1.0-4.0 [facility] Comment on above: Order Comment: Order Added by Discern Expert. Performed By: #### 2 453253, 00698208, 4891119, 13530978, 4726327, 209658924, 5292591 ####[address] [place] [address] Monocytes/100 WBC (Bld) 7.1 % Normal 4.0-14.0 [facility] Comment on above: Order Comment: Order Added by Discern Expert. Performed By: #### 2 977986, 21424116, 9532523, 68811251, 0679250, 123443468, 1470097 ####[address] [address] Monocytes/Leukocyte s Auto (Bld) [Pure # fraction] 0.7 E9/L Normal 0.2-1.0 [facility] Comment on above: Order Comment: Order Added by Discern Expert. Performed By: #### 2 294809, 14299546, 4006503, 47450633, 9889974, 456987531, 6062040 ####[address] [place] [address] Neutrophils/100 WBC (Bld) 77.3 % High 36.0-75.0 [facility] Comment on above: Order Comment: Order Added by Discern Expert. Performed By: #### 2 239344, 28901200, 7500645, 86611572, 1397075, 269982188, 1083101 ####[address] [place] [address] Neutrophils/Leukocy john paul Auto (Bld) [Pure # fraction] 7.5 E9/L Normal 2.0-7.5 [facility] Comment on above: Order Comment: Order Added by Discern Expert. Performed By: #### 2 340583, 77842789, 8926494, 31432548, 2478676, 332282231, 8508012 ####[address] [address] CBC w/ Auto Diffon Erythrocyte distribution width (RBC) [Ratio] 15.3 % High 10.9-14.2 [facility] Comment on above: Performed By: #### 2 976509, 45587810, 6881564, 77571836, 5906046, 238351929, 2524370 ####[address] [address] Hematocrit (Bld) [Volume fraction] 38.5 % Normal 34.0-46.0 [facility] Comment on above: Performed By: #### 2 870707, 89451049, 9895333, 22817125, 6247928, 171106774, 4048376 ####[address] [address] Hemoglobin (Bld) [Mass/Vol] 12.6 g/dL Normal 12.0-16.0 [facility] Comment on above: Performed By: #### 2 187545, 95748629, 7562944, 71476669, 5292661, 275864708, 6537505 ####[address] [address] MCH (RBC) [Entitic mass] 29.7 pg Normal 27.0-34.0 [facility] Comment on above: Performed By: #### 2 649167, 97528214, 6431835, 86715632, 1287478, 946034449, 5977226 ####[address] [address] MCHC (RBC) [Mass/Vol] 32.7 g/dL Normal 31.4-36.0 [facility] Comment on above: Performed By: #### 2 685443, 63182539, 4624055, 13318177, 3800984, 115847745, 0422875 ####[address] [address] MCV (RBC) [Entitic vol] 91.0 fL Normal 80.0-100.0 [facility] Comment on above: Performed By: #### 2 175911, 96817886, 1378304, 65804036, 4189745, 827891115, 7725973 ####[address] [address] Platelet mean volume (Bld) [Entitic vol] 8.0 fL Normal 6.4-10.8 [facility] Comment on above: Performed By: #### 2 717231, 55664519, 9987186, 76849848, 6754820, 642835064, 5958278 ####[address] [address] Platelets (Bld) [#/Vol] 278.0 E9/L Normal 150.0-500.0 [facility] Comment on above: Performed By: #### 2 064791, 47132656, 9793414, 10716514, 4159235, 548304457, 4001417 ####[address] [address] RBC (Bld) [#/Vol] 4.2 E12/L Low 4.3-5.9 [facility] Comment on above: Performed By: #### 2 064547, 45912106, 3456775, 69568246, 2262892, 564491464, 0086909 ####[address] [address] WBC corrected for nucl RBC Auto (Bld) [#/Vol] 9.7 E9/L Normal 4.0-11.0 [facility] Comment on above: Performed By: #### 2 964419, 23126132, 9866689, 14566356, 9680970, 371547171, 5285899 ####[facility] [address] [place] [address] CHEMISTRYOrdered By: SYSTEM SYSTEM on 07-15-2023 Albumin [Mass/Vol] 3.8 g/dL Normal 3.3 - 5.0 gm/dL R emisol Chem Albumin/Globulin [Mass ratio] 1.5 {ratio} Normal 1.1 - 2.2 Remisol Chem Alk Phos 55 [iU]/d Normal 21 - 98 Int._Unit/L Remisol Chem ALT 15 [iU]/d Normal 6 - 46 Int._Unit/L Remisol Chem Anion gap [Moles/Vol] 11 mmol/L Normal 6 - 16 mEq/L Remisol Chem AST 17 [iU]/d Normal 5 - 43 Int._Unit/L Remisol Chem Bili Total 0.6 mg/dL Normal 0.0 - 1.1 mg/dL Remisol C hem Calcium [Mass/Vol] 9.0 mg/dL Normal 8.9 - 11.1 mg/dL Remisol Chem Chloride [Moles/Vol] 104 mmol/L Normal 101 - 111 mmol/L Remisol Chem CO2 [Moles/Vol] 30 mmol/L Normal 21 - 31 mmol/L Remis ol Chem Creatinine [Mass/Vol] 0.5 mg/dL Normal 0.5 - 1.3 mg/dL Remisol Chem CRP mg/dL Normal <=1.9mg/dL Remisol Chem eGFR mL/min/1.73 m2 Normal >=59mL/min/1. 73 m2 Remisol Chem Globulin (S) [Mass/Vol] 2.6 g/dL Normal 1.4 - 4.0 gm/dL Remisol Chem Glucose [Mass/Vol] 100 mg/dL Normal 55 - 199 mg/dL Re misol Chem Potassium [Moles/Vol] 3.4 mmol/L Low 3.5 - 5.3 mmol/L Remisol Chem Protein [Mass/Vol] 6.4 g/dL Normal 6.0 - 7.8 gm/dL R emisol Chem Sodium [Moles/Vol] 142 mmol/L Normal 135 - 145 mmol/L Remisol Chem Urea nitrogen [Mass/Vol] 17 mg/dL Normal 5 - 21 mg/dL Remisol Chem Urea nitrogen/Creatinine [Mass ratio] 34 mg/mg High 10 - 20 Remisol Chem CHEMISTRYOrdered By: Demond Kendrick on 07-15-2023 Vitamin D 25 Hydroxy 31.6 ng/mL Normal 30.0 - 100.0 ng/mL Remisol Chem CMPon 07-15-2023 Albumin [Mass/Vol] 3.8 g/dL Normal 3.3-5.0 [facility] Comment on above: Performed By: #### 2 034067, 43721309, 8729166, 41184494, 4374344, 267114084, 4402304 ####[facility] [address] [place] [address] Albumin/Globulin [Mass ratio] 1.5 {ratio} Normal 1.1-2.2 [facility] Comment on above: Performed By: #### 2 708856, 79874802, 8882366, 53448530, 0171959, 998496370, 6964258 ####[facility] [address] [place] [address] Alk Phos 55 Int._Unit/L Normal 21-98 [facility] [place] Comment on above: Performed By: #### 2 241117, 77517621, 9013178, 03470375, 9155493, 682824075, 5090049 ####[facility] [address] [place] [address] ALT 15 Int._Unit/L Normal 6-46 [facility] Comment on above: Performed By: #### 2 229868, 49389144, 6660820, 06446746, 7922932, 630631051, 4673904 ####[facility] [address] [place] [address] Anion gap [Moles/Vol] 11 mmol/L Normal 6-16 [facility] Comment on above: Performed By: #### 2 429390, 89953023, 2380371, 17242537, 2242269, 088137064, 3010009 ####[facility] [address] [place] [address] AST 17 Int._Unit/L Normal 5-43 [facility] [place] Comment on above: Performed By: #### 2 661246, 46435173, 7107329, 71465015, 2002852, 393464230, 5830601 ####[facility] [address] [place] [address] Bili Total 0.6 mg/dL Normal 0.0-1.1 [facility] Comment on above: Performed By: #### 2 283640, 42692072, 4574546, 30154927, 3265957, 839317862, 4041775 ####[facility] [address] [place] [address] BUN/Creat Ratio 34 No Units High 10-20 [facility] Comment on above: Performed By: #### 2 627987, 32699021, 7239273, 72555412, 8131271, 605377978, 3268682 ####[facility] [address] [place] [address] Calcium [Mass/Vol] 9.0 mg/dL Normal 8.9-11.1 [facility] Comment on above: Performed By: #### 2 910777, 04606615, 7118037, 56024027, 3420797, 651630679, 3077883 ####[facility] [address] [place] [address] Chloride [Moles/Vol] 104 mmol/L Normal 101-111 [facility] Comment on above: Performed By: #### 2 841139, 07280614, 2761957, 70135874, 0040709, 373184875, 2231227 ####[facility] [address] [place] [address] CO2 [Moles/Vol] 30 mmol/L Normal 21-31 [facility] Comment on above: Performed By: #### 2 399680, 31739600, 1139014, 14490646, 9248726, 250382061, 7752983 ####[facility] [address] [place] [address] Creatinine [Mass/Vol] 0.5 mg/dL Normal 0.5-1.3 [facility] Comment on above: Performed By: #### 2 985219, 68234474, 4811343, 52815137, 1520049, 951437227, 1118803 ####[facility] [address] [place] [address] Globulin (S) [Mass/Vol] 2.6 g/dL Normal 1.4-4.0 [facility] Comment on above: Performed By: #### 2 339245, 31770597, 0223379, 13306775, 6862833, 667227228, 4768259 ####[facility] [address] [place] [address] Glucose [Mass/Vol] 100 mg/dL Normal 55-199 [facility] Comment on above: Performed By: #### 2 847412, 16555962, 2128477, 16774139, 2116220, 268715936, 6230005 ####[facility] [address] [place] [address] Potassium [Moles/Vol] 3.4 mmol/L Low 3.5-5.3 [facility] Comment on above: Performed By: #### 2 575330, 48366322, 5837832, 45872438, 1407694, 456171969, 4343094 ####[facility] [address] [place] [address] Protein [Mass/Vol] 6.4 g/dL Normal 6.0-7.8 [facility] Comment on above: Performed By: #### 2 604424, 94459161, 9619832, 16681838, 8480400, 593659724, 8908422 ####[facility] [address] [place] [address] Sodium [Moles/Vol] 142 mmol/L Normal 135-145 [facility] Comment on above: Performed By: #### 2 649659, 65470393, 2671752, 33059840, 7032188, 261151115, 8162066 ####[facility] [address] [place] [address] Urea nitrogen [Mass/Vol] 17 mg/dL Normal 5-21 [facility] Comment on above: Performed By: #### 2 201833, 38218094, 1899072, 91558404, 7609224, 419973325, 2192777 ####[facility] [address] [place] [address] CRPon 07-15-2023 CRP [Mass/Vol] mg/L Normal <=1.9 [facility] [place] Comment on above: Performed By: #### 2 953068, 39057288, 9367719, 27865762, 5263660, 070158664, 8249703 ####[facility] [address] [place] [address] Consent for Treatmenton 07-01 Consent for Treatment [id number] .00TIFF Normal [facility] HEMATOLOGYOrdered By: SYSTEM SYSTEM on 07-15-2023 Basophils/100 WBC (Bld) 0.3 % Normal 0.0 - 2.0 % [facility]eAuto[facility] Basophils/Leukocyte s Auto (Bld) [Pure # fraction] 0.0 E9/L Normal 0.0 - 0.2 E9/L [facility] Eosinophils/100 WBC (Bld) 0.8 % Normal 0.0 - 8.0 % [facility]eAuto[facility] Eosinophils/Leukocy john paul Auto (Bld) [Pure # fraction] 0.1 E9/L Normal 0.0 - 0.5 E9/L [facility]eAuto[facility] Lymphocytes/100 WBC (Bld) 14.5 % Normal 14.0 - 50.0 % [facility]eAuto[facility] Lymphocytes/Leukocy john paul Auto (Bld) [Pure # fraction] 1.4 E9/L Normal 1.0 - 4.0 E9/L [facility] Monocytes/100 WBC (Bld) 7.1 % Normal 4.0 - 14.0 % [facility]eAuto[facility] Monocytes/Leukocyte s Auto (Bld) [Pure # fraction] 0.7 E9/L Normal 0.2 - 1.0 E9/L [facility] Neutrophils/100 WBC (Bld) 77.3 % High 36.0 - 75.0 % [facility] Neutrophils/Leukocy john paul Auto (Bld) [Pure # fraction] 7.5 E9/L Normal 2.0 - 7.5 E9/L [facility] HEMATOLOGYOrdered By: Kj Jennings on 07-15-2023 Erythrocyte distribution width (RBC) [Ratio] 15.3 % High 10.9 - 14.2 % [facility] ESR (Bld) [Velocity] 19 mm/h Normal 0 - 34 mm/hr [facility] Hematocrit (Bld) [Volume fraction] 38.5 % Normal 34.0 - 46.0 % [facility] Hemoglobin (Bld) [Mass/Vol] 12.6 g/dL Normal 12.0 - 16.0 gm/dL [facility] MCH (RBC) [Entitic mass] 29.7 pg Normal 27.0 - 34.0 pg [facility] MCHC (RBC) [Mass/Vol] 32.7 g/dL Normal 31.4 - 36.0 gm/dL [facility] MCV (RBC) [Entitic vol] 91.0 fL Normal 80.0 - 100.0 fL [facility] Platelet mean volume (Bld) [Entitic vol] 8.0 fL Normal 6.4 - 10.8 fL [facility] Platelets (Bld) [#/Vol] 278.0 E9/L Normal 150.0 - 500.0 E9/L [facility] RBC (Bld) [#/Vol] 4.2 E12/L Low 4.3 - 5.9 E12/L [facility] WBC corrected for nucl RBC Auto (Bld) [#/Vol] 9.7 E9/L Normal 4.0 - 11.0 E9/L [facility] Physician Orderon 07-15-2023 Physician Order [id number] #1.00TIFF Normal [facility] Sed Rate Automatedon 024 ESR (Bld) [Velocity] 19 mm/h Normal 0-34 [facility] Comment on above: Performed By: #### 2 919635, 09664771, 7560862, 25571199, 6137786, 332478066, 7069155 ####[facility] [address] [place] [address] Vitamin D 25 Hydroxyon 07-15 Vitamin D 25 Hydroxy 31.6 ng/mL Normal 30.0-100.0 [facility] Comment on above: Performed By: #### 2 114876, 00010900, 3008140, 19215431, 8814012, 712521626, 9400404 ####[facility] [address] [place] [address] eGFRon 07-15-2023 GFR/1.73 sq M.predicted among non-blacks MDRD (S/P/Bld) [Vol rate/Area] mL/min/{1.73_m2} Normal >=59 [facility] Comment on above: Order Comment: Order added by Discern Expert. Performed By: #### 2 556113, 16115505, 4849444, 26200201, 4681468, 844791153, 8229435 ####[facility] [address] [place] [address] Consultation Noteon 07-08-19 Consultation Note [id number]#1 .00TIFF Normal [facility] Outside Diabetes Eye Examon 07-08-2023 Outside Diabetes Eye Exam [id number]#1 .00TIFF Normal [facility] Consultation Noteon 07-03-19 Consultation Note [id number]#1 .00TIFF Normal [facility] Ambulatory Visit Summaryon Ambulatory Visit Summary MATTLUCIEJANAK Manning :1960 Visit Date:06/28/2023 Ambulatory Visit Instructions Your Diagnosis BMI 45.0-49.9, adult Non-smoker Your Care Team Attending Physician - Marisela Canales Primary Care Physician - Makayla HDZ, Silvestre Linares This Is Your Medications List albuterol (ProAir RespiClick 90 mcg/inh inhalation powder) albuterol-ipratropium (DuoNeb 2.5 mg-0.5 mg/3 mL Soln-Inh) azithromycin (azithromycin 250 mg Tab) celecoxib (celecoxib 200 mg Cap) cyclobenzaprine (cyclobenzaprine 10 mg Tab) denosumab (Prolia) fluticasone nasal (Flonase 0.05 mg/inh nasal spray) fluticasone-salmetero l (Advair Diskus 250 mcg-50 mcg inhalation powder) levothyroxine (levothyroxine 137 mcg (0.137 mg) Tab) methylPREDNISolone (methylPREDNISolone 4 mg tab dosepak) montelukast (montelukast 10 mg Tab) ondansetron (Zofran 4 mg Tab) pantoprazole (Pantoprazole [address] Tab) semaglutide (Ozempic (1 mg dose)) upadacitinib (Rinvoq 15 mg oral tablet, extended release) Procedures Performed EGD (esophagogastroduoden oscopy) gastric outlet reduction (05/21/2022), Colonoscopy (05/09/2021), EGD - Esophagogastroduodeno scopy (05/09/2021), Cataract extraction, Cholecystectomy, Foot repair, Hysterectomy, Knee replacement, Shoulder, Tonsillectomy and adenoidectomy; age 12 or over. Discharge Vitals Heart Rate (Peripheral) 76 Respiratory Rate 18 Blood Pressure 128/80 Height 143.2 cm Height 56 in Weight 98.0 kg Weight 215.6 lb BMI 47.79 Medications What How Much When Instructions Unchanged albuterol (ProAir RespiClick 90 mcg/ inh inhalation powder) 2 Puffs Inhalation Every 4 hours as needed for for wheezing or SOB Unchanged albuterol-ipratropium (DuoNeb 2.5 mg-0.5 mg/ 3 mL Soln-Inh) 3 Milliliter Nebulized inhalation (aerosol) 6 times a day Unchanged azithromycin (azithromycin 250 mg Tab) 1 Packets By Mouth As Directed Duration: 5 Days as directed on package labeling Pickup at [facility]/pharmacy #[id number] Unchanged celecoxib (celecoxib 200 mg Cap) 1 Capsules By Mouth 2 times a day Unchanged cyclobenzaprine (cyclobenzaprine 10 mg Tab) 1 Tablets By Mouth 3 times a day as needed for for spasm prn back pain Unchanged denosumab (Prolia) 60 Milligram Subcutaneous Every 6 months Unchanged fluticasone nasal (Flonase 0.05 mg/ inh nasal spray) 2 Sprays Nasal Inhalation Every day Unchanged fluticasone-salmetero l (Advair Diskus 250 mcg-50 mcg inhalation powder) See instructions one puff inhales in the morning and night Unchanged levothyroxine (levothyroxine 137 mcg (0.137 mg) Tab) See instructions TAKE 1 TABLET BY MOUTH EVERY DAY Unchanged methylPREDNISolone (methylPREDNISolone 4 mg tab dosepak) 1 Packets By Mouth Once as directed on package labeling Pickup at [facility]/pharmacy #[id number] Unchanged montelukast (montelukast 10 mg Tab) See instructions TAKE 1 TABLET BY MOUTH TWICE A DAY Unchanged ondansetron (Zofran 4 mg Tab) 1 Tablets By Mouth Every 6 hours Unchanged pantoprazole (Pantoprazole [address] Tab) 1 Tablets By Mouth Every day Duration: 90 Days Unchanged semaglutide (Ozempic (1 mg dose)) 1 Milligram Subcutaneous Every week Ordered by another provider. Unchanged upadacitinib (Rinvoq 15 mg oral tablet, extended release) Pharmacy Information [facility]/pharmacy #[id number]: [address], [place] [id number] [phone] Allergies Cefzil (Unknown) Eliquis (Unknown) Keflex (Hives) Pradaxa (Unknown) penicillin G benzathine (Hives) Problems Ongoing - Any problem that you are currently receiving treatment for. Allergic rhinitis Anemia Annual physical exam Bilateral otitis media BMI 40.0-44.9, adult Chronic peripheral venous hypertension with lower extremity complication Chronic sinusitis Colitis Cough Derangement of knee Diverticular disease Esophageal web Exposure to COVID-19 virus Fluid level behind tympanic membrane of both ears Gastroesophageal reflux disease without esophagitis Hemorrhoids Hx of pulmonary embolus Hypothyroidism Hypoxemia Low hemoglobin Moderate asthma without complication Morbid obesity with BMI of 40.0-44.9, adult Nasal congestion Non-insulin dependent type 2 diabetes mellitus Obesity due to excess calories Oral thrush Pre-op exam Rheumatoid arthritis involving multiple sites with positive rheumatoid factor Right otitis media Shortness of breath Viral gastritis Weight loss, unintentional Wheezing Historical - Any problem that you are no longer receiving treatment for. Arthritis Asthma Change in bowel habits COVID-19 Dysphagia Loose stools Nausea Patient Survey You may receive a survey via text or e-mail asking about your office visit. Please share your experience with us by completing your survey. We appreciate your feedback and thank you for choosing us for your care. Normal Kelley [facility] Office/Clini c Noteon 06-28-2023 Family Medicine Office/Clinic Note HPI Staff Carolina is a 62 year old female presenting for acute sick visit Respiratory C/O: Onset: 2 days ago Body aches: no Chest congestion: yes Chills: no Cough: yes Sputum production: yes yellow Sore throat: no Ear complaints: yes right ear feels full Eye itching/watering: no Fever: no Headache: no Nasal congestion: no Nasal discharge: no Poor appetite: yes Reduced activity: no Sinus pain/pressure: no Sneezing: yes Wheezing: yes Ill contacts: yes Remedies tried: Advil cold and sinus History of Present Illness pt presents today with congestion and cough, right ear feels full Review of Systems PHQ Score Initial Depression Screen Score: 0 SCORE ROS - Provider Constitutional: no fever, no chills, no sweats, no fatigue Respiratory: no shortness of breath, no cough, no orthopnea, no wheezing. Cardiovascular: no chest pain, no palpitations, no edema. Neurologic: no headache, no dizziness, no numbness, no weakness. Physical Exam Vitals & Measurements HR: 76(Peripheral) RR: 18 BP: 128/80 SpO2: 98% HT: 56 in HT: 143.2 cm WT: 98.0 kg WT: 215.6 lb BMI: 47.79 General: alert, no acute distress ENMT: oral mucosa moist, no pharyngeal erythema or exudate Cardiovascular: regular rate and rhythm, normal peripheral perfusion Respiratory: Lungs CTA, respirations non labored Extremities: no deformity, no trauma Neurological: oriented x 4, LOC appropriate for age, CN II-XII intact, motor strength equal & normal bilaterally, speech normal Assessment/Plan 1. Bronchitis (J40: Bronchitis, not specified as acute or chronic) pt presents today with nasal congestion and cough. will order z panchito and medrol dose pack. pt tends to get sick very quickly if not managed at start of symptoms. all questions answered. PT has tessalon pearls and inhalers she will use as needed as well. 2. BMI 45.0-49.9, adult (Z68.42: Body mass index [BMI] 45.0-49.9, adult) BMI education complete 3. Non-smoker (Z78.9: Other specified health status) continue not smoking Orders: azithromycin, = 1 packet(s), Oral, As Directed, as directed on package labeling, X 5 day(s), # 6 tab(s), Refills(s) 0, [id number], 143.2, cm, 06/28/23 10:53:00 EST, Height/Length Dosing, 98, kg, 06/28/23 10:53:00 EST, Weight Dosing methylPREDNISolone, = 1 packet(s), Oral, Once, as directed on package labeling, # 21 tab(s), Refills(s) 0, [id number], 143.2, cm, 06/28/23 10:53:00 EST, Height/Length Dosing, 98, kg, 06/28/23 10:53:00 EST, Weight Dosing Follow-up No qualifying data available Problem List/Past Medical History Ongoing Allergic rhinitis Anemia Annual physical exam Bilateral otitis media BMI 40.0-44.9, adult Bronchitis Chronic peripheral venous hypertension with lower extremity complication Chronic sinusitis Colitis Cough Derangement of knee Diverticular disease Esophageal web Exposure to COVID-19 virus Fluid level behind tympanic membrane of both ears Gastroesophageal reflux disease without esophagitis Hemorrhoids Hx of pulmonary embolus Hypothyroidism Hypoxemia Low hemoglobin Moderate asthma without complication Morbid obesity with BMI of 40.0-44.9, adult Nasal congestion Non-insulin dependent type 2 diabetes mellitus Obesity due to excess calories Oral thrush Pre-op exam Rheumatoid arthritis involving multiple sites with positive rheumatoid factor Right otitis media Shortness of breath Viral gastritis Weight loss, unintentional Wheezing Historical Arthritis Asthma Change in bowel habits COVID-19 Dysphagia Loose stools Nausea Procedure/Surgical History EGD (esophagogastroduoden oscopy) gastric outlet reduction (05/21/2022), Colonoscopy (05/09/2021), EGD - Esophagogastroduodeno scopy (05/09/2021), Cataract extraction, Cholecystectomy, Foot repair, Hysterectomy, Knee replacement, Shoulder, Tonsillectomy and adenoidectomy; age 12 or over. Medications Advair Diskus 250 mcg-50 mcg inhalation powder, See Instructions, 1 refills azithromycin 250 mg Tab, 1 packet(s), Oral, As Directed celecoxib 200 mg Cap, 200 mg= 1 cap(s), Oral, BID cyclobenzaprine 10 mg Tab, 10 mg= 1 tab(s), Oral, TID, PRN DuoNeb 2.5 mg-0.5 mg/3 mL Soln-Inh, 3 mL, NEB, 6x/Day, 1 refills Flonase 0.05 mg/inh nasal spray, 2 spray(s), Nasal, Daily levothyroxine 137 mcg (0.137 mg) Tab, See Instructions methylPREDNISolone 4 mg tab dosepak, 1 packet(s), Oral, Once montelukast 10 mg Tab, See Instructions Ozempic (1 mg dose), 1 mg, SubCutaneous, qWeek Pantoprazole [address] Tab, 40 mg= 1 tab(s), Oral, Daily, 3 refills ProAir RespiClick 90 mcg/inh inhalation powder, 2 puff(s), Inhalation, q4hr, PRN, 11 refills Prolia, 60 mg, SubCutaneous, q6mo Rinvoq 15 mg oral tablet, extended release Zofran 4 mg Tab, 4 mg= 1 tab(s), Oral, q6hr, 1 refills Allergies Cefzil (Unknown) Eliquis (Unknown) Keflex (Hives) Pradaxa (Unknown) penicillin G benzathine (Hives) (more content not included)... [facility] Comment on above: Result Comment: Elec tronically Signed By: Marisela Canales\.dusty\Date and Time Signed: 06/28/23 12:45 EST Consultation Noteon 06-19-20 Consultation Note [id number]#1 .00TIFF [facility] RAD - CT Reporton 06-19-2023 RAD - CT Report [id number]#1 .00TIFF [facility] Renea 06-11-[address] [facility] Telephone (4CQ) CAROLINA GOMEZ ([id number]) 1960 F Date Time Provider Department 06/11/23 STEVO NEFF 4CQ During your visit today, we recorded the following information about you: Andressa Sanders 06/11/2023 3:08 PM Signed Carolinajanak Gomez is calling Stevo Neff MD today with concern regarding a letter she received in the mail about getting non fasting labs for refills. Patient would like lab orders mailed to her home address. Thank you. No chief complaint on file. Patient has been identified by name and birthdate. Duration of symptoms: Person calling: self Call patient at: [phone] (home) [phone] (work) [phone] (cell) Was an appointment scheduled: Closing statement: Monika Conroy MA 06/11/2023 3:55 PM Signed Lab orders mailed to pt's home as requested Telephone on 06/11/23 VITAMIN D 25 HYDROXY SED RATE WESTERGREN C-REACTIVE PROTEIN (CRP) CBC + DIFF COMP METABOLIC PANEL Allergies As of Date: 06/11/2023 Noted Allergy Reaction KEFLEX (CEPHALEXIN) 10/18/2004 No Latex Allergy [Other] 10/18/2004 PENICILLINS 01/05/2004 Date Reviewed: 05/07/2022 Reviewed by: Stevo Neff MD - Fully Assessed Reason for Visit: Orders [681] Primary Visit Diagnosis:Rheumatoid arthritis of multiple sites without rheumatoid factor (HCC) [M06.09] Other Visit Diagnoses: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 Swallow whole; DO NOT crush, chew, or open. - celecoxib (CELEBREX) 200 mg capsule TAKE 1 CAPSULE BY MOUTH TWICE A DAY - ergocalciferol 50,000 unit capsule (VITAMIN D2, DRISDOL) (take by mouth with food twice a week, ONE CAPSULE ON SATURDAY AND ONE ON SATURDAY) FOR A TOTAL OF 8 WEEKS. - levothyroxine (SYNTHROID) 75 mcg tablet TAKE 1.5 TABLETS ON SATURDAY, SATURDAY, SATURDAY, SATURDAY AND 2 TABLETS THE OTHER 3 DAYS - EPIPEN 2-PANCHITO 0.3 mg/0.3 mL (1:1,000) atIn - LANSOPRAZOLE 30 mg capsule Take 1 capsule by mouth daily at bedtime. - zafirlukast (ACCOLATE) 20 mg tablet Take 1 tablet by mouth twice daily. - fluticasone (FLONASE) 50 mcg/actuation nasal spray 1 [place] daily at bedtime. in each nostril. - Cholecalciferol, Vitamin D3, 1,000 unit ORAL Tab Take 1 tablet by mouth once daily. - Doxycycline Monohydrate 40 mg capsule Take 1 capsule by mouth. - CITRACAL 500 MG (2,376 MG) EFFERVESCENT TAB Take one(1) tablet two(2) times daily. 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 [*11/25/2015 Rotator cuff arthropathy of left shoulder [M12.*05/07/2022 Bilateral wrist pain [M25.531, M25.532] 05/07/2022 Bilateral hand pain [M79.641, M79.642] 05/07/2022 Family history of gout [Z82.69] 05/07/2022 Secondary osteoarthritis of multiple sites [M15*05/07/2022 Family history of rheumatoid arthritis [Z82.61] 05/07/2022 AILEEN positive [R76.8] 05/07/2022 Rheumatoid arthritis of multiple sites without *05/07/2022 Postmenopausal osteoporosis of multiple sites [*05/07/2022 Long-term use of high-risk medication [Z79.899] 05/07/2022 Cyclic citrullinated peptide (CCP) antibody pos*05/09/2022 Rheumatoid factor positive [R76.8] 05/09/2022 Encounter Status:Closed by MONIKA MENENDEZ on 06/11/23 [facility] Consultation Noteon 05-29-20 Consultation Note [id number]#[facility] on 05-24-2023 Consultation/Specia list Note [id number]#1.00 [facility] Provider Orderson 05-24-2023 Provider Orders [id number]#1 .00[facility] Provider Orders [id number]#1.00 [facility] Coding Summaryon 05-22-2023 Coding Summary HTMLBase 64 PpqhuqptBYw3jYp+PGhlY WQ+XP2GQESkC07qeMNfxG 9xS2WAHCvJLuklLHQXIWp UJsHcwhLwUK3dlOAaNNGx IC8+AE1yCFWsAxdddTAnb 0U4oXT7A09nhq7eSLjxzA C7KTKePvWevuhrf7nbgQm 6IDcuNmluOyBt FUWwhF22DRJ6zX60Zo41b YGduAUju3yuzMp6BmTiDW UuZBD6tYgiWEzub8TzOQD nQ83imNQnb0K9 MBBgfUlglFNnNsZktFU2u I3yUQixcvlbp5mdbxyyIs m2ur93gQTuo7M4sYV5L4M euxK7OUTwbMSj FuhfxHCMgK5kibdro9hwa bszUkScXJEcBAo9NAc9GL QpdXkhKsMrIP19RRB7WCH myvIwL1QaMIVg xBdePtJ9v2S0Tu8EC5EFC dtbQ6ONUWZQYBkrdTC+PC 16fq86Z7MyFazpSsi8SRD xRNH0hKV6zJ4n VIAqSYlbk4I8sHF6E7Atw bOayp0wo4ffGNInVSbyV6 4iaCHus6M3MWEcmAA0GEB dxCsvZePmzM77 Oyc+SVDsrIhud7QsAvxci 1pnc9jekLw6CspmEFGnbb LesJbkYPR0o8NyEp0cAID ndNO3qQT7tY2j UyUgBjD1DEysI741HgBsw OKaJyqzT38gM0DbmXA+PH MhIfi1TWJcrAtjNV1gJ7D hZGRpbmctbGVm iJguOW9wBKUxfpuoTFLrf V8qSLSuL6e0SdDrGkL7QO tiC7IgIZTxjrrfAs19aE5 gGkRxKgR3DTip G6NzboU5TWUpgEToLEzjM NG8A71mu0Q8OEBbRBQdPK D0eCI9rI6phGzduquajVH mdDsgdmVydGlj GOopGLwwV203ZPCrfPqmX kNvZGluZyBEYXRlOiAgMT EvMjIvMjAyMzwvdGQ+PHR jVJP2pTvwHKIg rEQzTUusJl6kcBaapZpjS O7xZQPebnujBRWawM6pCN WcxULhiLmeJU7nSIWcgqd ff896LcBkKJB1 HWOxpZPcG0GftH2aMoPzI XHiMKJnU1DpqKDiMVlmS7 39VMyvImQ0JFBdcrDgO6Q sLWFsaWduOiB0 f7N7Um8Sc5SylwnhQ8Fcb XUoHkDhWvirPLt5S2DaTo wvdHI+YR17UAXbTJ89SKb 4XTR8hJwrNIwx QMGxO8ZrzX3vYjZgHNNmJ GRkOyc+PHRhYmxlIHdpZH RoPScxMDAlJyBzdHlsZT0 dRv1qQJOkMDVr iLltoYSnDhZgl7enHONmQ BtlWH9lqLchZ1ZlcVP4BJ Prj5s7Nw30L37fO2KbsRL +YCUthYQ4mSI8 mG5eXfWlWrW8AEdkF422I pFxyJYaKkdvh6dog7twqV e0UrW2CETnvdUhgMizGZR 2p0RfDl85S39a IHdpZHRoPSIxNSUiIHZhb Nuxig8mvZ1rBg6+PGNvbC Z4uWO2pP7zJqHcKxL6PCk aR764UpYzyTDu Bhkco9arb2nxkPq9DdNlZ OZdusUeqQwtTMP3z9YqRw 42C6ZbeMsmb5EcSuh0tw7 4hXJhs9H8vFX4 H0MoDCVkzzlbtTHtjKefG T4zXAUhdgxtHSJgbV1xTK OuN8d5McHdZjS4FLecT9T gzqP9CEYepTYf JBXamGOXgO5lemrbq9auu fzcWqCwQYSxJCa6NDt9VX UvbTqaLaTjHYE3BxJ7DRH 7tCAuuU4qdLsc umidbI7cAyz+KRU0yOWbg JRLKC4uTyodmPA+PHRkIH I4eGpkKPmlRHCroF3iTNA sY4c8AdVhViB7 NMnyQ9OkqsA1IBZtuJQrL URcxDORsX7dvagwr6pgtn kxPmJnCNDjDOj1YBz1XYX saWduOiBsZWZ0 YlL7UUL4bZGkaD9kaCnjm ymznN0vYal+QmlydGggRG J7GXo8U5DzFzq8GLJnxCc oGT7boHHuPJll Jw7xwKnctCsrZS7zSKCam eonk507FsAuq7ubCDCsuL SaMArkLBI1X62cd2M1BLI sIRCbNFZ3uZL1 eM9qiEgjkmntkVRpaJjmv sDamAjdGIunNXldR304EA QsoLreQfUaMMa5O7DaHko 6OVHmzIarIP4g hKLlAIocRr4ypLghwJkxX N9gZRMnkmhme738FkKxn1 gqBLWedNAxVTvxJPM3O72 gv5E7KFJgTWWq YRN8tCH2oJ0nxQxnxxsap GVmdDsgdmVydGljYWwtYW fzE246EGRqfDttRaFaeFn 2Q9EvHci0NRWb qMwkRE9jwLNgOHqmNg5zr KhlwEwaAB3fENLitcmbf3 51ZdWuj0adTUJikHXtXGe zTQU7A94cn6X5 MMGjGFSnACD2bMO0bQ4ih GlnbjogbGVmdDsgdmVydG kkNHnjFSezJ983ZAEdxOm nPlBhdGllbnQg JFlwRDj4E0SpVxxndDH+P W86XWJrHH96eANudAVzo5 cdoDv1LjJkRREyDCL4kMa eRItnv2HcOXAt W86giENgp4H7BNNkjAdxb JCgCxXrkAF8pN9xXNavnd qvs4fruroxBmxzv5hhdk5 9hP12A45jYJms ZHRoPSIzMCUiIHZhbGlnb s0kgB9zGc4+KJXslBV1dJ U3qF7aWYCtDfW7NQeoI00 9InRvcCIvPjxj i4lua2jcwAk6MoM0ZQIvr nPeqCxxJPP1k0JgKj92C9 9sIHdpZHRoPSIyMCUiIHZ qyPaorx4jlV0s Ii8+AYLqqQI5yKD8aI0aX nWuGjR4YVatE327NjJlqZ OvYfqpA07fN7PbhID+PHR nLfx2JSSpuDnk SW8srAKsKAelOv0aPPW1K aSoRtZjDLefS7LpFXJifz zenvyqwTH4YZYuEMNvuE3 1Fy4gsIqcBVAi tSJYsN6wngnxz6izjbihM sQpDBWlWUw2GBw7SGSnyF pmGbTmRTY9HbA9IGT9wGX rkJ9ziTwzbbiq aK0mO9HyNSZlgsqaHj26g C3oOsLaQmZ7VOkiDkt+QU gIKOEUXDZYIFrxFP8DAG6 3CJ73iSUvw8M0 zUI9D2VfWXTfmgojmjdmn FS7ZQYwRDVupK02rDYuFK loPe7ou8I8b566CCLjYWM yeN28Mo2ikRym ADGbwORQaA1txckuh1clq wjzTkFiQLHbHLk7NOj2IB BckIhnJaRhAGI0MhN4SDA 3dCVdxY6rxWxs yafpuT1yStw+MDUvMDcvM Gc5EJogmYN+OSNmJYC3dK boMZlbEQQpwY3mQUFdC8e 1MkCtRnN5KGau P1WaIGShlkfsLj87hJ4oH aToKeJ0BMyfE3CmbaI3EL NspZHwLFmzZUM1X61oi1X 0DQOuBOIuUVD8 zGK0zG4suHripsbvrOTbk DsgdmVydGljYWwtYWxpZ2 46IHRvcDsnPjYzIFllYXJ zRZ24EH62qNSe g6P6kLZ5R5BdXBIbqadzh jzzuFB4WKDiUZOroX75vR EpOFllVi2wp0I9f381KQF xZACkgF37Xn0d tIjoDHCqxZKJtR3kldrwu 1dvrkecSdIzYAAsVOt2VW s0LTTaiJetAtQiQRC7ApL 2OPY4mZNnxJ6h xBhptlbsnZ9fPii+RkVNQ NuJNJ80GJ94yCMsr3G3pA S7U3DqIFSjvifofyvwtMF 7YEOrISCmaX43 sENgWOkkKe0de1T3z646J CXrLBUwjU53Lq9oqQmsFK PpeIDHiU8kbegmy3fsqdc gIzAwMDAwMDt0 JVp3ZJIstJdlFcRtYGS9E rA4DFF3oLPluM0giNamcd fpxG8rNoo+H8FoWPA8NJG wy575S5NfKinv dHI+IZ20NMFvFW05aRMxk SFny6fpdXp5XoQpZSRcGT T7xRgsQBeyf0PgJXWrN09 hoZTmz2D9AIUa wBzotRRdYiDtiXE6qB5rJ Ksibhkby8zecmalNomyi7 nzax96vO65R25fCChlYTR oPSIzMCUiIHZh pVslso1haN2fLs9+PGNvb JI0wRM5pJ6aBwNyTbR5GT wtK830NgJxpNYvHmxzu1g lo0rmdUv4PgAe GQVuegAplRjfQAN1i7MmL y74O65sVBvdPLHgEQNlQJ RaYADcdUynlq7wwA3iRi8 +QA9vl0csmh10 wM06gHW+HWYpXGN6jQtnH BnfGOWajI6jLSklIbZ0CA SgCvZijR57gAZfMXtbWt2 zoJfsiPryPL9k EBMfxjqoa911UtBfm8sxJ NVgkJExRVitDZE5B59kh8 L7OEFoNJQtCNX2cJJ5dC4 hbGlnbjogbGVm dDsgdmVydGljYWwtYWxpZ 952PHTbaIbjApEzcTOlA3 egztAOGP9jYdaubAI+PHR xAJS2lEfyBNbb YHPhbN6zHVMvE0d7IgYkI iN1BIzwE1ZpxbN6VXZflC TtULWymYWBtM3qiwaxo6t vcjogIzAwMDAw BYu3VEn1KNFmhCwdJoSaA BK5FlT0EYG4bFMxeC0rhG vaclfqlA6fDcz+RklOOjw vdGQ+PHRkIHN0 aCsoNLckJRQoxI8wHDJeL 7o3MtRnZsD4ACsmR6Eudl O9QNXfkEAuGBEqnBZOuY1 ydfzck5dasmze ZcOjWNVtFUh4UAm0SPPjh IzsTpEePGM7OgK5YPK9gS QhuH2fyTgjtnsykN6aHwi +TVJOOjwvdGQ+ IRJuTCG2mWnyDNduVCNfz R1pFUUdW2s8RtNpByP0ZG isW9YmhjW2LCDgxYWfIAJ xvAWFhG9ijacq w8haesxoXyRmNXBvGZi8F Tf7MMQjcFgqRhEmJPP9Rf V8QGT0gXTobO6knZqizmj oyN8gYzx+UGF5 AWX7YH37DS72O2ZvPqhzx GFibGU+PHRhYmxlIHdpZH RoPScxMDAlJyBzdHlsZT0 eAh2vJHVmRLEx bGx (more content not included)... [facility] Consent Formson 05-22-2023 Consent Forms [id number]#1.00 [facility] Outside Recordson 05-22-2023 Outside Records [id number]#1.00 [facility] Telemetry Stripson 3 Telemetry Strips [id number]#1.0 [facility]23 Inpatient [place] [address] Patient Discharge Instructions Name: CAROLINA GOMEZ : 1960 Patient Address: [address] [place] [address] Primary Care Provider: Name: Silvestre Benavides MD After you are discharged if you find you have any questions, please, call [phone] ext [phone] to speak to a nurse. The Pharmacy at [facility] is open Saturday through Saturday from 9A to 6P and Saturday and Saturday from 9A to 5P Discharge Diagnosis: Arthritis of left glenohumeral joint Prescription Information: If you have been given a prescription for narcotics, seek immediate medical attention if you have any difficulty breathing or any sudden status changes such as confusion and sleepiness. If you or anyone you know is experiencing suicidal thoughts, mental health, alcohol and/or drug addiction problems; contact the [facility] 21/01 Crisis Hotline -Text 4HHOQ dz [id number]. If you received any narcotics, sedation, or any other medication that causes drowsiness for the next 24 hours, unless otherwise directed: ? Do not drive a car. ? Do not operate machinery such as power tools, lawn mowers, drills, sewing machines, or stoves ? Avoid alcoholic beverages and drugs for allergies, nerves, or sleep ? Do not make important personal or business decisions or sign any legal documents [facility] would like to thank you for allowing us to assist you with your healthcare needs. The following includes patient education materials and information regarding your injury/illness. CAROLINA GOMEZ has been given the following list of follow-up instructions, prescriptions, and patient education materials: Follow-up Instructions With: Address: When: Rosa Dunbar [address] [place] [address], [address] [place] [address] [facility] (1) 05/28/2023 10:30 AM Medications During the course of your visit, your medication list was updated with the most current information. The details of those changes are reflected below: Medications That Were Updated - Follow Below Instructions Other Medications Updated: azelastine nasal (azelastine 137 mcg/inh (0.1%) nasal spray) 2 spray(s) Nasal 2 times a day. in the morning and at bedtime. Medications to Continue That Have Not Changed Other Medications albuterol (Albuterol (Eqv-ProAir HFA) 90 mcg/inh inhalation aerosol) 2 puff(s) Inhalation Every 4 hours as needed shortness of breath or wheezing. celecoxib (celecoxib 200 mg oral capsule) 1 cap(s) Oral 2 times a day. cyclobenzaprine (cyclobenzaprine 10 mg oral tablet) 1 tab(s) Oral 3 times a day as needed for spasm. fluticasone nasal (Flonase Allergy Relief 50 mcg/inh nasal spray) 1 puff(s) Nasal every day. fluticasone-salmetero l (Wixela Inhub 250 mcg-50 mcg inhalation powder) 1 puff(s) Inhalation 2 times a day. levothyroxine (levothyroxine 137 mcg (0.137 mg) oral tablet) 1 tab(s) Oral every day. montelukast (montelukast 10 mg oral tablet) 1 tab(s) Oral 2 times a day. ondansetron (ondansetron 4 mg oral tablet) 1 tab(s) Oral Every 8 hours as needed for nausea/vomiting. oxyCODONE (oxyCODONE 5 mg oral tablet) 1 tab(s) Oral Every 6 hours as needed Pain - Moderate for 5 Days. pantoprazole (pantoprazole 40 mg oral delayed release tablet) 1 tab(s) Oral every day. semaglutide (Ozempic (1 mg dose) 4 mg/3 mL subcutaneous solution) 1 Milligram Subcutaneous every week. tiotropium (Spiriva Respimat 1.25 mcg/inh inhalation aerosol) 2 puff(s) Inhalation every day. upadacitinib (Rinvoq 15 mg oral tablet, extended release) 1 tab(s) Oral every day. It is important to always keep an active list of medications available so that you can share with other providers and manage your medications appropriately. As an additional courtesy, we are also providing you with your final active medications list that you can keep with you. albuterol (Albuterol (Eqv-ProAir HFA) 90 mcg/inh inhalation aerosol) 2 puff(s) Inhalation Every 4 hours as needed shortness of breath or wheezing. azelastine nasal (azelastine 137 mcg/inh (0.1%) nasal spray) 2 spray(s) Nasal 2 times a day. in the morning and at bedtime. celecoxib (celecoxib 200 mg oral capsule) 1 cap(s) Oral 2 times a day. cyclobenzaprine (cyclobenzaprine 10 mg oral tablet) 1 tab(s) Oral 3 times a day as needed for spasm. fluticasone nasal (Flonase Allergy Relief 50 mcg/inh nasal spray) 1 puff(s) Nasal every day. fluticasone-salmetero l (Wixela Inhub 250 mcg-50 mcg inhalation powder) 1 puff(s) Inhalation 2 times a day. levothyroxine (levothyroxine 137 mcg (0.137 mg) oral tablet) 1 tab(s) Oral every day. montelukast (montelukast 10 mg oral tablet) 1 tab(s) Oral 2 times a day. ondansetron (ondansetron 4 mg oral tablet) 1 tab(s) Oral Every 8 hours as needed for nausea/vomiting. oxyCODONE (oxyCODONE 5 mg oral tablet) 1 tab(s) Oral Every 6 hours as needed Pain - Moderate f (more content not included)... [facility] Intraoperative [facility] MAGR Intra-Op Record Summary Primary Physician: Rosa Dunbar DO Finalized Date/Time: 05/21/23 10:19:12 Pt. Name: MATT CAROLINA DARNELL GanO.B./Sex: 1960 FEMALE Med Rec #: [id number] Physician: Rosa Dunbar DO Financial #: [id number] Pt. Type: O Room/Bed: [facility]/ Admit/Disch: 05/20/23 06:11:47 - Institution: Case Times MAGR Entry 1 Patient In Room Time 05/20/23 07:28:00 Out Room Time 05/20/23 09:33:00 Anesthesia Start Time 05/20/23 07:29:00 Stop Time 05/20/23 09:31:00 Surgery Start Time 05/20/23 08:09:00 Stop Time 05/20/23 09:25:00 Last Modified By: Siomara Espinoza RN 05/20/23 09:33:43 Case Attendance MAGR Entry 1 Entry 2 Entry 3 Case Attendee Rosa Dunbar John M MD Wheeler, Lauren L RN Andrew DO Role Performed Surgeon - Primary Anesthesiologist of Gravity Flow Irrigator Record Time In 05/20/23 07:28:00 05/20/23 07:28:00 05/20/23 07:28:00 Time Out 05/20/23 09:05:00 05/20/23 09:33:00 05/20/23 09:33:00 Procedure Arthroplasty Shoulder Arthroplasty Shoulder Arthroplasty Shoulder Total Reverse(Left) Total Reverse(Left) Total Reverse(Left) Last Modified By: Siomara Espinoza RN, Lauren L RN Wheeler, Lauren L RN 05/20/23 09:33:30 05/20/23 09:33:30 05/20/23 09:33:30 Entry 4 Entry 5 Entry 6 Case Attendee Sharron Jones RN, Brittany E CSFA Radloff, Leigh-Ann CSFA CST ACCESSIBILITY LIFT TECHNICIAN Role Performed Gravity Flow Irrigator Scrub Personnel Pharmacy Technician Inpatient Time In 05/20/23 07:28:00 05/20/23 07:28:00 05/20/23 07:28:00 Time Out 05/20/23 09:33:00 05/20/23 09:33:00 05/20/23 09:33:00 Procedure Arthroplasty Shoulder Arthroplasty Shoulder Arthroplasty Shoulder Total Reverse(Left) Total Reverse(Left) Total Reverse(Left) Last Modified By: Siomara Espinoza RN, Lauren L RN Wheeler, Lauren L RN 05/20/23 09:33:30 05/20/23 09:33:30 05/20/23 09:33:30 Entry 7 Case Attendee Kin ACCESSIBILITY LIFT TECHNICIANKeisha ACCESSIBILITY LIFT TECHNICIAN CSFA Role Performed Pharmacy Technician Inpatient Time In 05/20/23 07:28:00 Time Out 05/20/23 09:33:00 Procedure Arthroplasty Shoulder Total Reverse(Left) Last Modified By: Siomara Espinoza RN 05/20/23 09:33:30 General Comments: MELBA- STERIS REP CULLEN- STERIS REP KODAK- ARTHREX Surgical Procedures MAGR Pre-Care Text: A.20 Verifies operative procedure, surgical site, and laterality Im.150 Develops individualized plan of care Entry 1 Procedure Arthroplasty Shoulder Primary Procedure Yes Total Reverse Primary Surgeon Rosa Dunbar Modifiers Left Fahad DO Surgeon Comment LEFT REVERSE TOTAL Start 05/20/23 08:09:00 SHOULDER Stop 05/20/23 09:25:00 Anesthesia Type General Surgical Service Orthopedics Wound Class Clean Technique Details Closure Technique Primary Entire procedure No was performed via laparoscope or robotic assistance Last Modified By: Siomara Espinoza RN 05/20/23 09:33:32 Post-Care Text: O.730 The patient's care is consistent with the individualized perioperative plan of care General Case Data MAGR Pre-Care Text: A.350.1 Classifies surgical wound Entry 1 Case Information OR MAGR OR 05 Case Level Level 5 Wound Class Clean Specialty Orthopedics ASA Class 3 Diagnosis Preop Diagnosis DJD Postop Same As Preop Yes Postop Diagnosis DJD Blunt or No Is the procedure No penetrating injury considered occured prior to Emergent/Urgent? the start of the procedure: Last Modified By: Siomara Espinoza RN 05/20/23 08:12:12 Post-Care Text: O.760 Patient receives consistent and comparable care regardless of the setting Time Out MAGR Entry 1 Procedure(s) Arthroplasty Shoulder Total Reverse(Left) Time Out Checklist Verifications Patient Verified Yes Allergies Verified Yes Procedure to be Yes Presence of Yes Performed Verified Necessary with Consent Procedural Equipment, Devices, and Implants Verified Site Verification, Yes Site Marking, Site Marking Alternative, and/or Site Marking Exception in Accordance with Facility Policy Anesthesia Review Antibiotic Received Yes All Anesthesia Yes Within an Concerns Addressed Appropriate Time Interval Prior to Surgical Incision Surgeon Review Anticipated Blood Yes Loss Risk, Expected Case Duration, and Critical and Non-Routine Steps to be Performed Addressed Nurse Review Team Introductions Yes Equipment Concerns Yes Completed Addressed Fall Risk Concerns Yes Fire Risk Yes Addressed Assessment Completed and Interventions Performed Skin Assessment Yes Diagnostic and Yes Concerns Addressed Radiological Test Results Displayed are Appropriate and Labeled Skin Prep Allowed Yes Sterilization Yes to Dry Prior to Concerns Addressed Incision Venous Yes Laser Safety n/a Thromboembolism Measures Implemented Prophylaxis Ordered Latex Precautions Yes Other Concerns Yes Implemented Addressed Time Out Rosa Dunbar Time Out Time 05/20/23 08:08:00 Participants Sheri Vásquez DO, John M MD, Whe (more content not included)... [facility] MAGR Postoperative Recordon 05-21-2023 MAGR Postoperative Record [facility] Phase II Record Summary Primary Physician: Rosa Dunbar DO Finalized Date/Time: 05/21/23 10:28:27 Pt. Name: MATT CAROLINA DARNELL Farnsworth.B./Sex: 1960 FEMALE Med Rec #: [id number] Physician: Rosa Dunbar DO Financial #: [id number] Pt. Type: O [facility] Admit/Disch: 05/20/23 06:11:47 - Institution: Phase II Case Times MAGR Pre-Care Text: Patient is free from s/s of injury. Patient remains free from compromised physical state related to surgery or anesthesia. Patient comfort maintained. Patient/family verbalize understanding of discharge instructions. Entry 1 In PACU II 05/20/23 10:28:00 Discharge from PACU 05/20/23 11:30:00 II Last Modified By: Ligia Claudio RN 05/21/23 10:28:26 Post-Care Text: The patient remains free from s/s of injury. Patient's vital signs stable, circulation maintained, return to preop mental and physical status, opsite/dressing intact, minimal or absent nausea and vomiting, tolerates po intake. Patient verbalizes adequate pain control. Patient/family express understanding of discharge instructions. Finalized By: Ligia Claudio RN Document Signatures Signed By: Ligia Claudio RN 05/21/23 10:28 [facility] POCT Glucose Levelon 023 Glucose [Mass/Vol] 171 mg/dL High 74-118 [facility] Comment on above: Performed By: #### [id number] ####[facility] (DEFAULT)[address] [place] [address] Pharmacy Noteon 05-21-2023 Pharmacy Note I have personally reviewed the patient's medication list upon discharge including, prescription medications, OTC products, vitamins and supplements. Below are the following medications the patient is discharged on. Medications That Were Updated - Follow Below Instructions Other Medications Updated: azelastine nasal (azelastine 137 mcg/inh (0.1%) nasal spray) 2 spray(s) Nasal 2 times a day. in the morning and at bedtime. Medications to Continue That Have Not Changed Other Medications albuterol (Albuterol (Eqv-ProAir HFA) 90 mcg/inh inhalation aerosol) 2 puff(s) Inhalation Every 4 hours as needed shortness of breath or wheezing. celecoxib (celecoxib 200 mg oral capsule) 1 cap(s) Oral 2 times a day. cyclobenzaprine (cyclobenzaprine 10 mg oral tablet) 1 tab(s) Oral 3 times a day as needed for spasm. fluticasone nasal (Flonase Allergy Relief 50 mcg/inh nasal spray) 1 puff(s) Nasal every day. fluticasone-salmetero l (Wixela Inhub 250 mcg-50 mcg inhalation powder) 1 puff(s) Inhalation 2 times a day. levothyroxine (levothyroxine 137 mcg (0.137 mg) oral tablet) 1 tab(s) Oral every day. montelukast (montelukast 10 mg oral tablet) 1 tab(s) Oral 2 times a day. ondansetron (ondansetron 4 mg oral tablet) 1 tab(s) Oral Every 8 hours as needed for nausea/vomiting. oxyCODONE (oxyCODONE 5 mg oral tablet) 1 tab(s) Oral Every 6 hours as needed Pain - Moderate for 5 Days. pantoprazole (pantoprazole 40 mg oral delayed release tablet) 1 tab(s) Oral every day. semaglutide (Ozempic (1 mg dose) 4 mg/3 mL subcutaneous solution) 1 Milligram Subcutaneous every week. tiotropium (Spiriva Respimat 1.25 mcg/inh inhalation aerosol) 2 puff(s) Inhalation every day. upadacitinib (Rinvoq 15 mg oral tablet, extended release) 1 tab(s) Oral every day. Discharge Med Rec Notes: Counseled patient on new medications of oxycodone. Reviewed admission medication list against external fill history and available [employer] medication history to ensure accuracy. Reviewed regimen upon discharge which is appropriate and correct. [Electronically Signed on: 05/21/2023 13:13 EST] Jagjit Martino [Verified on: 05/21/2023 13:13 EST] Jagjit Martino [facility] Pharmacy Note I have personally reviewed the patient's current home medication list including, prescription medications, OTC products, vitamins and supplements. Home medications reviewed upon admission as follows: Active Medications albuterol: 2 puff(s), INH, q4hr, PRN: shortness of breath or wheezing, Refills: azelastine nasal: 2 spray(s), Nasal, BID, in the morning and at bedtime, Refills: celecoxib: 200 mg = 1 cap(s), PO, BID, 60 cap(s), 0 Refill(s), Refills: 0 cyclobenzaprine: 10 mg = 1 tab(s), PO, TID, PRN: for spasm, 30 tab(s), 0 Refill(s), Refills: 0 fluticasone nasal: 1 puff(s), Nasal, Daily, 0 Refill(s), Refills: 0 fluticasone-salmetero l: 1 puff(s), INH, BID, Refills: levothyroxine: 137 mcg = 1 tab(s), PO, Daily, 30 tab(s), 0 Refill(s), Refills: 0 montelukast: 10 mg = 1 tab(s), PO, BID, 30 tab(s), 0 Refill(s), Refills: 0 ondansetron: 4 mg = 1 tab(s), PO, q8hr, PRN: for nausea/vomiting, 0 Refill(s), Refills: 0 oxyCODONE: 5 mg = 1 tab(s), PO, q6hr, for 5 day(s), PRN: Pain - Moderate, 0 Refill(s), Refills: 0 Not taking, to start Post op - pain pantoprazole: 40 mg = 1 tab(s), PO, Daily, 90 tab(s), 0 Refill(s), Refills: 0 semaglutide: 1 mg, SubQ, qWeek, Refills: tiotropium: 2 puff(s), INH, Daily, 0 Refill(s), Refills: 0 upadacitinib: 15 mg = 1 tab(s), PO, Daily, 0 Refill(s), Refills: 0 Status of Medication History: Complete Source of Information: Patient and External Fill History Changes Made: - Medications Added to List: oxycodone - post-op pain control - Medications Held at Admission: - Medications Modified: changed directions to reflect external fill of azelastine (BID) - Medications Removed from List: state reason (i.e. no longer taking, strength change, etc) Other Comments: [Electronically Signed on: 05/21/2023 07:59 EST] Jagjit Martino [Verified on: 05/21/2023 07:59 EST] Jagjit Martino [facility] Anesthesia Noteon 05-20-2023 Anesthesia Note Patient: CAROLINA GOMEZ Age: 62 years Sex: FEMALE : 1960 Associated Diagnoses: None Author: Naveen Wade MD Postoperative Information Post Operative Note Health Status Allergies: Allergic Reactions (All) Moderate Keflex- No reactions were documented. Penicillin- No reactions were documented. Unknown Cefprozil- Unknown. Dabigatran- Unknown. Eliquis- No reactions were documented. Problem list: All Problems (Selected) Acquired equinus deformity of foot / SNOMED CT 77395208 / Confirmed Allergic rhinitis / SNOMED CT 347031230 / Confirmed Anemia / SNOMED CT 230557300 / Confirmed Anti-cyclic citrullinated peptide antibody detected / SNOMED CT 0566348817 / Confirmed Anti-nuclear factor detected / SNOMED CT 1520515184 / Confirmed Arthritis / SNOMED CT 6681398 / Confirmed Asthma / SNOMED CT 195000058 / Confirmed Chronic peripheral venous hypertension with lower extremity complication. 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 / Confirmed Degenerative joint disease of ankle AND/OR foot / SNOMED CT 166299477 / Confirmed Diabetes / SNOMED CT 443978212 / Confirmed Diverticular disease / SNOMED CT 7805143009 / Confirmed Esophageal web / SNOMED CT 10738389 / Confirmed GERD (gastroesophageal reflux disease) / SNOMED CT 063741359 / Confirmed Hyperlipidemia / SNOMED CT 90081434 / Confirmed Hypothyroidism / SNOMED CT 45700259 / Confirmed Immunoglobulin subclass deficiency / SNOMED CT 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 Plan Transfer/ Discharge: To home, Patient can be discharged from PACU when criteria met. Condition good. pt did well. pain controlled. no n/v. hd stable. resp and neuro status at baseline. volume status adequate [Electronically Signed on: 05/20/2023 12:32 EST] Naveen Wade MD [Verified on: 05/20/2023 12:32 EST] Naveen Wade MD [facility] Anesthesia Note Patient: CAROLINA GOMEZ Age: 62 years Sex: FEMALE : 1960 Associated Diagnoses: None Author: Naveen Wade MD Preoperative Information Anesthesia history: Patient history: No difficult intubation, No malignant hyperthermia. Family history: No malignant hyperthermia. Review of Systems Constitutional: Negative. Respiratory: Negative, No shortness of breath. Cardiovascular: Negative, No chest pain. Gastrointestinal: No heartburn. Health Status Allergies: Allergic Reactions (All) Moderate Keflex- No reactions were documented. Penicillin- No reactions were documented. Unknown Cefprozil- Unknown. Dabigatran- Unknown. Eliquis- No reactions were documented. Current medications: Home Medications (13) Active Albuterol (Eqv-ProAir HFA) 90 mcg/inh inhalation aerosol 2 puff(s), PRN, INH, q4hr azelastine 137 mcg/inh (0.1%) nasal spray 2 spray(s), Nasal, Daily celecoxib 200 mg oral capsule 200 mg = 1 cap(s), PO, BID cyclobenzaprine 10 mg oral tablet 10 mg = 1 tab(s), PRN, PO, TID Flonase Allergy Relief 50 mcg/inh nasal spray 1 puff(s), Nasal, Daily levothyroxine 137 mcg (0.137 mg) oral tablet 137 mcg = 1 tab(s), PO, Daily montelukast 10 mg oral tablet 10 mg = 1 tab(s), PO, BID ondansetron 4 mg oral tablet 4 mg = 1 tab(s), PRN, PO, q8hr Ozempic (1 mg dose) 4 mg/3 mL subcutaneous solution 1 mg, SubQ, qWeek pantoprazole 40 mg oral delayed release tablet 40 mg = 1 tab(s), PO, Daily Rinvoq 15 mg oral tablet, extended release 15 mg = 1 tab(s), PO, Daily Spiriva Respimat 1.25 mcg/inh inhalation aerosol 2 puff(s), INH, Daily Wixela Inhub 250 mcg-50 mcg inhalation powder 1 puff(s), INH, BID Problem list (past medical history): All Problems Acquired equinus deformity of foot / SNOMED CT 17389695 / Confirmed Allergic rhinitis / SNOMED CT 848428083 / Confirmed Anemia / SNOMED CT 909298222 / Confirmed Anti-cyclic citrullinated peptide antibody detected / SNOMED CT 1966159041 / Confirmed Anti-nuclear factor detected / SNOMED CT 7954090395 / Confirmed Arthritis / SNOMED CT 8452432 / Confirmed Asthma / SNOMED CT 066524565 / Confirmed Chronic peripheral venous hypertension with lower extremity complication. 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 / SNOMED CT 324585814 / Confirmed Diabetes / SNOMED CT 723003048 / Confirmed Diverticular disease / SNOMED CT 1614686831 / Confirmed Esophageal web / SNOMED CT 71450529 / Confirmed GERD (gastroesophageal reflux disease) / SNOMED CT 864471633 / Confirmed Hyperlipidemia / SNOMED CT 70365319 / Confirmed Hypothyroidism / SNOMED CT 01744184 / Confirmed 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 Comments: 05/03/2023 14:50 Noemi Arshad RN left knee repair Colonoscopy (419844269). Total knee arthroplasty (6768254817). Comments: 05/03/2023 14:49 Noemi Arshad RN right Cholecystectomy (60190317). Bilateral cataracts (632899447). Tonsils and adenoids (615019745). Foot (53478467). Comments: 05/03/2023 14:51 LAVONNE Storm RN, Noemi Olivas reconstruction bilateral feet Vaginal hysterectomy with partial colpectomy (356762347). Hematoma (8602063834). Comments: 05/03/2023 14:53 Noemi Arshad RN left calf Social History Electronic Cigarette/Vaping Assessment Electronic Cigarette Use: Never. Alcohol Assessment Use: Current. Liquor, 1-2 times per month Tobacco Assessment Never tobacco user Tobacco Use:. Substance Abuse Assessment Substance use: Never. Employment/School Assessment Employed Home/Environment Assessment Lives with Spouse. Living situation: Home/Independent. Home equipment: Glucose monitoring, nebulizer. Nutrition/Health Assessment Diabetic . Social & Psychosocial Habits Alcohol 05/03/2023 Alcohol Use: Current Type: Liquor Frequency: 1-2 times per month Employment/School 05/03/2023 Status: Employed Home/Environment 05/03/2023 Lives with: Spouse Living situation: Home/Independent Home equipment: Glucose monitoring, nebulizer Nutrition/Health 05/03/2023 Type of diet: Diabetic Substance (more content not included)... Normal [facility] MAGR Intraoperative Recordon 05-20-2023 MAGR Intraoperative Record MAGR Intra-Op Record Summary Primary Physician: Finalized Date/Time: 05/20/23 07:32:42 Pt. Name: CAROLINA GOMEZ/Sex: 1960 FEMALE Med Rec #: [id number] Physician: Rosa Dunbar DO Financial #: [id number] Pt. Type: D Room/Bed: / Admit/Disch: 05/20/23 06:11:47 - Institution: Case Times MAGR Entry 1 Patient In Room Time 05/20/23 07:15:00 Out Room Time 05/20/23 07:28:00 Anesthesia Start Time 05/20/23 07:21:00 Stop Time 05/20/23 07:28:00 Surgery Start Time 05/20/23 07:23:00 Stop Time 05/20/23 07:25:00 Last Modified By: Nata Sánchez RN 05/20/23 07:31:37 Case Attendance MAGR Entry 1 Entry 2 Entry 3 Case Attendee Naveen Wade MD, Laura RN Draper, Lora RN Role Performed Anesthesiologist of Gravity Flow Irrigator Gravity Flow Irrigator Record Time In 05/20/23 07:15:00 05/20/23 07:15:00 05/20/23 07:15:00 Time Out 05/20/23 07:28:00 05/20/23 07:28:00 05/20/23 07:28:00 Procedure Interscalene Block(Left) Interscalene Block(Left) Interscalene Block(Left) Last Modified By: Nata Sánchez RN, Lora RN Draper, Lora RN 05/20/23 07:31:40 05/20/23 07:31:40 05/20/23 07:31:40 Surgical Procedures MAGR Pre-Care Text: A.20 Verifies operative procedure, surgical site, and laterality Im.150 Develops individualized plan of care Entry 1 Procedure Interscalene Block Primary Procedure Yes Primary Surgeon Naveen Wade MD Modifiers Left Surgeon Comment LEFT REVERSE TOTAL Start 05/20/23 07:23:00 SHOULDER Stop 05/20/23 07:25:00 Anesthesia Type Regional Block Surgical Service Anesthesia Wound Class Clean Technique Details Closure Technique N/A Entire procedure No was performed via laparoscope or robotic assistance Last Modified By: Nata Sánchez RN 05/20/23 07:31:43 Post-Care Text: O.730 The patient's care is consistent with the individualized perioperative plan of care General Case Data MAGR Pre-Care Text: A.350.1 Classifies surgical wound Entry 1 Case Information OR MAGR Proc Room Case Level None Wound Class Clean Specialty Anesthesia ASA Class 3 Diagnosis Preop Diagnosis SCALENEL BLOCK PRIOR TO Postop Same As Preop Yes LEFT REVERSE TOTAL SHOULDER Postop Diagnosis SCALENEL BLOCK PRIOR TO LEFT REVERSE TOTAL SHOULDER Blunt or No Is the procedure No penetrating injury considered occured prior to Emergent/Urgent? the start of the procedure: Last Modified By: Nata Sánchez RN 05/20/23 07:26:50 Post-Care Text: O.760 Patient receives consistent and comparable care regardless of the setting Time Out MAGR Entry 1 Procedure(s) Interscalene Block(Left) Time Out Checklist Verifications Patient Verified Yes Allergies Verified Yes Procedure to be Yes Presence of Yes Performed Verified Necessary with Consent Procedural Equipment, Devices, and Implants Verified Site Verification, Yes Site Marking, Site Marking Alternative, and/or Site Marking Exception in Accordance with Facility Policy Anesthesia Review Antibiotic Received n/a All Anesthesia Yes Within an Concerns Addressed Appropriate Time Interval Prior to Surgical Incision Surgeon Review Anticipated Blood Yes Loss Risk, Expected Case Duration, and Critical and Non-Routine Steps to be Performed Addressed Nurse Review Team Introductions Yes Equipment Concerns Yes Completed Addressed Fall Risk Concerns Yes Fire Risk Yes Addressed Assessment Completed and Interventions Performed Skin Assessment Yes Diagnostic and Yes Concerns Addressed Radiological Test Results Displayed are Appropriate and Labeled Skin Prep Allowed Yes Sterilization Yes to Dry Prior to Concerns Addressed Incision Venous n/a Laser Safety n/a Thromboembolism Measures Implemented Prophylaxis Ordered Latex Precautions n/a Other Concerns Yes Implemented Addressed Time Out Naveen Wade MD, Time Out Time 05/20/23 07:20:00 Participants Nata Sánchez RN, Jessenia Ayon RN Last Modified By: Nata Sánchez RN 05/20/23 07:32:11 Patient Positioning MAGR Pre-Care Text: A.280 Identifies baseline musculoskeletal status Im.40 Positions the patient Im.80 Applies safety devices Entry 1 Procedure Interscalene Block(Left) Body Position Semi-Fowlers Left Arm Position Resting at Side Right Arm Position Resting at Side Left Leg Position Extended Right Leg Position Extended Feet Uncrossed? Yes Press Points Checked Yes Outcome Met (O.80) Yes Last Modified By: Nata Sánchez RN 05/20/23 07:30:16 Post-Care Text: E.290 Evaluates musculoskeletal status O.80 Patient is free from signs and symptoms of injury related to positioning Skin Prep MAGR Pre-Care Text: A.30 Verifies allergies Im.270 Performs skin preparation Im.270.1 Implements protective measures to prevent skin and tissue injury due to chemical sources Entry 1 Skin Prep Syntegrity Prep Agents (Im.270) Chlorhexidine Gluconate Prep By Naveen Wade MD and Alcohol Prep Area (Im (more content not included)... [facility] PACU Record [facility] PACU Record Summary Primary Physician: Rosa Dunbar DO Finalized Date/Time: 05/20/23 10:38:00 Pt. Name: CAROLINA GOMEZ DARNELL Dimas/Sex: 1960 FEMALE Med Rec #: [id number] Physician: Rosa Dunbar DO Financial #: [id number] Pt. Type: D Room/Bed: 224/1 Admit/Disch: 05/20/23 06:11:47 - Institution: PACU Case Times MAGR Entry 1 In PACU I 05/20/23 09:34:00 Discharge from PACU 05/20/23 10:27:00 I Last Modified By: Jessenia Ayon RN 05/20/23 10:37:58 Finalized By: Jessenia Ayon RN Document Signatures Signed By: Jessenia Ayon RN 05/20/23 10:38 [facility] Preoperative Recordon 1 07-20-2022 [facility] Preoperative Record MAGR Pre-Op Record Summary Primary Physician: Rosa Dunbar DO Finalized Date/Time: 05/20/23 08:05:44 Pt. Name: CAROLINA GOMEZ DARNELL Dimas/Sex: 1960 FEMALE Med Rec #: [id number] Physician: Rosa Dunbar DO Financial #: [id number] Pt. Type: D Room/Bed: / Admit/Disch: 05/20/23 06:11:47 - Institution: Pre-Op Case Times MAGR Pre-Care Text: Patient will be optimally prepared for surgery. Patient is free from s/s of injury. Provide information to patient/family related to plan of care. Verify patient allergies. Confirm identity and verify consent before the operative or invasive procedure. Entry 1 Patient Arrival Time 05/20/23 06:14:00 Preop Departure 05/20/23 07:28:00 Last Modified By: Nata Sánchez RN 05/20/23 08:05:43 Post-Care Text: Patient is prepared mentally and physically and is ready for surgery. The patient remains free from s/s of injury. Patient/family express understanding of plan of care and participate in decisions affecting his or her perioperrative plan of care. Allergies documented appropriately. Patient identifiers and consent correct. General Comments: Reviewed for the next 24 hours not to do anything that requires concentration. Denies chest pain, shortness of breath at this time. States gets short of breath at times, especially walking, Asthma. Denies pacemaker/defib. Denies sleep apnea. Finalized By: Nata Sánchez RN Document Signatures Signed By: Nata Sánchez RN 05/20/23 08:05 [facility] Nutrition Noteon 05-20-2023 Nutrition Note Chart reviewed; 62 y o female diagnosed with s/p shoulder repair; diet order cardiac; no recent weight changes; no difficulties with chew/swallow identified on admit; patient currently appears at low nutrition risk; encourage increase po as maria g post-op; monitor po for adequacy, wt/labs for changes; follow, assist prn. ts [facility] Operative Report - Surgeon/P john paul 05-20-2023 Operative Report - Surgeon/Physician Preoperative diagnosis: Rotator cuff tear arthropathy and arthritis the glenohumeral joint left shoulder Postoperative diagnosis: Same Procedure: Reverse left total shoulder replacement Implants: Arthrex size 6 apex stem, VIP instrumentation with a 24 mm baseplate and a 20 central post with a full wedge augment. 2 mm offset. Glenosphere 33+4 glenosphere stem size 6 apex, central cup 3 mm x 33 s liner Surgeon: [place] Dunbar D.O. Anesthesia: General Indications for surgery: Progressive pain with loss of function and failure of conservative treatment Estimated blood loss: 150 Complications: None Findings: Deficient rotator cuff with no residual attachment of the subscapularis supraspinatus or infraspinatus. Also fatty infiltration into the deltoid. Civj-ct-slsz Procedure summary: The patient was brought to the operative suite she was given general acetic she was placed in the beachchair I have initially prepped with isopropyl alcohol and allowed that to dry and then we prepped with Betadine. An anterior deltopectoral approach was utilized dissection was carried down to the deltoid the medial border of the deltoid was scarred to the pectoralis and the cephalic vein was buried somewhere within. I divided the anterior fibers of the deltoid and then dissected through the deltoid exposing the the capsule. I externally rotated the shoulder identified the biceps which was partially torn. I dissected the capsule away along with the biceps which was resected. The capsule was reflected medially. The head was easily dislocated. Utilizing a 20 degree version guide a cut was taken. A protector was placed on the head my attention was turned towards the glenoid what remained of the labrum was excised. Utilizing the VIP instrumentation pin was inserted. Imaging was performed with a wedge reamer. Next the central hole was drilled for 20 mm to accommodate a central post. A wedge baseplate with 2 mm offset size [address] it was snug and secure but I further stabilized it with 2 nonlocking screws and 2 locking screws. Gait none locker superiorly and a 16 none locker inferiorly. For the locking screws I used a 16 mm and 20 mm locking screw. Next a 33 glenosphere with 4 mm offset was impacted into place and then it was further stabilized with a central locking screw which was torqued between 4 and 5. My attention was turned back towards the humerus the protector was removed and handheld reamers were inserted up to size 6 then broaching with approximately 20 degrees of version was done up to size 6 that was left in place it was no need for offset has it was central. Reaming was performed and then trial reductions were performed the deltoid was appropriately tensioned there was no tendency towards dislocation with a +3 mm cup The trial components were removed and a size 6 apex stem at 135 degrees was impacted into place and then a 33 x 3 mm liner was clicked into place it was snug and secure. I soaked the wound with diluted Betadine. I irrigated thoroughly I repaired the fascia of the deltoid with a 0 Vicryl suture. The subcutaneous layer was closed with 2-0 Vicryl and running 3-0 subcuticular stitch. tincture of benzoin and Steri-Strips were applied. [Electronically Signed on: 05/20/2023 09:17 EST] Rosa Dunbar DO [Verified on: 05/20/2023 09:17 EST] Rosa Dunbar DO Normal [facility] POCT Glucose Levelon 023 Glucose [Mass/Vol] 127 mg/dL High 74-118 [facility] Comment on above: Performed By: #### [id number] ####[facility] (DEFAULT)[address] [place] [address] Glucose [Mass/Vol] 94 mg/dL Normal 74-118 [facility] Comment on above: Performed By: #### [id number] #### [facility] (DEFAULT) [address] [place] [id number] Progress Note - Nurseon - Progress Note - Nurse Pt. arrive from OR via cart alert and oriented and in stable condition. Report given by Jessenia Pendleton RN. Polar care, edgar hose, and scd's in place. Pt. reports a tolerable left shoulder pain. Circ checks to left arm WNL. Sling in place. Pt. oriented to room. Vitals initiated. Instructed pt. on coughing and deep breathing and foot pumps and ankle circles. Dressing to left shoulder dry and intact. [Electronically Signed on: 05/20/2023 11:23 EST] Pop Rodriguez RN [Verified on: 05/20/2023 11:23 EST] Pop Rodriguez RN [facility] XR Shoulder 1 View Lefton XR Shoulder 1 View Left History: Shoulder replacement Technique: Left shoulder, 2 views COMPARISON: [none] FINDINGS: Status post left shoulder arthroplasty. The prostheses are in anatomic alignment. There is air in the subcutaneous soft tissues. IMPRESSION: Status post left shoulder arthroplasty. Final Signed (Electronic Signature): Delmar Miller MD 05/20/23 11:33 a Technologist: SLIM [facility] Comment on above: Order Comment: defau lt status post shoulder replacement Progress Note - Nurseon - Progress Note - Nurse Pre-op call done, instructed to arrive @ 0600 on 11-20-23, NPO after midnight-verbalized understanding. [Electronically Signed on: 05/17/2023 10:00 EST] Jessenia Ayon RN [Verified on: 05/17/2023 10:00 EST] Jessenia Ayon RN [facility] ECG 12-Leadon 05-16-2023 ECG 12-Lead [id number]# 1.00TIFF [facility] Lab Reportson 05-16-2023 Lab Reports [id number]#1 .00TIFF [facility] Patient Correspondenceon Patient Correspondence [id number]#1. 00TIFF [facility] Provider Letteron 05-15-2023 Provider Letter [address] [place], [place] [id number] May 15, [address] [address] : [address] Dunbar, The above patient has been evaluated at your request for preoperative clearance. After assessment of available pertinent labs and diagnostic tests, I feel this patient is medically optimized for surgery. Final discretion of whether the patient is cleared for surgery remains up to the surgeon/anesthesiolog ist. Thank you, MORENA Castillo [facility] Auth for Release of Medical Recordson 05-13-2023 Auth for Release of Medical Records [id number]#1. 00TIFF [facility] Coding Summaryon 05-13-2023 Coding Summary HTMLBase 64 ZskzfhzbPJr7rQt+PGhlY WQ+QY0YLUHjL75zdRNjhI 6lX7COUFjIRlgvWYJKRRc FYpDnwrMpYQ7faZMdHOYm IC8+AN6rQELpKhzxjFTgu 2I7iKI4A04yxp9dGPgdtL V8ONHfNaMzumnrd9ibhYk 6IDcuNmluOyBt RPOfcC32QJU3xF18Fw10j PVmqNEym1oskCl8StPrEQ LiUDQ5yZzlTTzoh6QmKBU pG39qlIGiz8M6 ZLXizWsjvKWvSzGmgAQ1i F8mOIundimci1qjojlkOw n1qe22uCKdl3U5mFT0F8E nehQ5RIKnqNJh NrwpxGGQeS4ydwhux0sob dlmMrNmALKwXVb4YIk6BA LtzEzdPbTaFY59CBX9MVE xyeJfJ9KdMVTu uVdlSlD2p5E2Jx0ZG0FYY gyjK4RVULZREOotsBI+PC 34bz01I0YiAllgFxm0GLC eCLV1kOI4uL4x IWLaNGhbj0J0qSQ9T6Dpx sPasz4pb3kyLIFrCOwtP9 7phYTab4O8NKEkbTQ5QPR ifLheUtJyvH21 Oyc+SVSkwJhnt8YsXtbeq 1ewr1mxpTi4FzibFUHsmj EqaAqgDDO8b5KqMj6tKVV fpBS6mXC4eM1j JrEnVrZ4IWceL015SuTwb PNaEhmjV71kZ4KugGY+PH VzWbq6GSHkjCsvSG7bT1D hZGRpbmctbGVm oAslSN6dYCMelcpmBBGpp L2pVXTuW4v2WmBmWmP1DP wjO0MuIUNicmrpFk43pU2 uYsDaUfT6DPml Y9RqanA1NXTuuNOoJDxjV RS0M65xc0N3XTChYEOsMW D7wZZ8eT3kdYalogwgoAH mdDsgdmVydGlj YYzfKUclR547FQEdyLkxN kNvZGluZyBEYXRlOiAgMT EvMTMvMjAyMzwvdGQ+PHR vYIM7kGdkZQUw qUUkVGkjLj8kmFxljTxsV L1oHPCcozsyPEBqrV9pJK IurGZxgXcnOH2uISHamoj vz510MmMjLWV6 LNJojYGvO4VpgZ3lVuHtL BPdHRBtQ1YygVEfJCxyL6 34JWxwUrS4WWWnobTlF9I sLWFsaWduOiB0 a5C1Wi4Lp5QlawpeT5Ypx AFaXlXwGiuuPLx8E1WjUd wvdHI+TX72ZNOxZY64LNu 1DRX3oCewVQtq UBLlO5GvbW1kIoKfKLBpA GRkOyc+PHRhYmxlIHdpZH RoPScxMDAlJyBzdHlsZT0 bKu8mXAIjDHFf bVgupQVtHiIct0viLCDbZ EhbDN5jjVpkT8MztTM6XA Www8d6Kp40F49dV3NomRY +OXAtuLE9rNL9 bT7fOjGnDhN0WLibJ347O rDsmISzHipws6fpt0qomH y2SjA4VKNqojCdlCgoCIO 8u3PbBi10J24o IHdpZHRoPSIxNSUiIHZhb Obuik4vdS3sSv0+PGNvbC L5cIS1xA5gHiBiCvI1HFv eE880BnIxoAVa Otsjb8ugb1risPt9TjIuK PIrziEckLblEDV9i1McVr 17K1MtyDuzp4HdDmw9ip0 0kJZod4D9sIR7 Y4GpDTXwlfzlgHImsTlwX S5gGUKmeggfNGPlnL0sFN EcP4f8YfGcYpS6WKsdD0P vsaY3VJGhvYRg TOZgiFPVeQ8pmsgwe9fco fmpXpQgVUUcDCg4HSa0VA YbwHngKkCdQCG7UgP3XQY 8fJGrnB6jtQcs vafnyN6tRip+MJB7lALyr BVPKY2kIowxnUX+PHRkIH Y3oDnwWSypMZCfhM8dOQE dY6b3OpPwPiJ5 XRrjO3LcqnP8IEIsnKXgT LZuwDSKnP3oufvbq7mmyn dnJkIeBCLfQCz9PJg7HGN saWduOiBsZWZ0 QlF9EXK5iHWhaG4ufDkaj czcnF1vHjq+QmlydGggRG P8NPf5P7BnNpa4UANfeJf mWY6zgTLxTZyx Nw3raGoayLooQT8wUBVpz tagh540PgExz7qfZUUcuG QoONgbLST7H39se9D3PEN vSNUsFGT0oAS1 cV5meEcbqlpucNCvsIpgr yHvoHhuNJdkULrpZ391VO CsaNubXaDvNQv8H1JkVhc 3KJJqqUylAW8o pCSqORshOg4vyRcmjGzbU Y8dYLGzusrey286XjLdq8 sfWFFjxPDoRTosQWI1Q95 ve5Z1YTPbPGRu CLG3dAM3xK5wwDsngjtth GVmdDsgdmVydGljYWwtYW twV567LMAcfMhlFmCbmEv 3U4AyVvt5TDOn iHivON7lpUWpBArwVi3kg EgfpBwiKE1iNFLibgcjv8 38MfRcm1xeGBMimOCuFCs uETY9S48ka7J8 SFSuKJVsNGP1vQB6hP6hf GlnbjogbGVmdDsgdmVydG hsQFqrSHhcZ243WWFrqZf nPlBhdGllbnQg KJhyISp5X6SfLmedpKT+P Q12CBHzCV68gLTflGUwj8 zgvMr7OhHxUIHyFBQ1hIu wVTjvd2RhJFIz U14miMUct6W7XBHkoQynv JTxFoFsbGA6kB9qPMippo ugx2fcbfekZlucb8bigy2 9uW47V16wMMih ZHRoPSIzMCUiIHZhbGlnb f1hwI2lJn0+MVGarZN4rI F3eJ3aVXGjUhU5TYglX33 9InRvcCIvPjxj p0huy9mvyEc5BkA0BAWud qEsiOagJKU2s9StFg71Y4 9sIHdpZHRoPSIyMCUiIHZ xmJbqql1niY1q Ii8+GTFcxYZ7dGP0fW8gW kXzNhR8VCypH210KhHhrK SqEzvfY39mG4XzoSI+PHR mVgm0SSLchQuz HA6vqKQhTDtjMo7hNAJ2U tPcBwMjZLtpS5JwDSVfhq gnpgtscIT2TZVlROJrzV0 9Qs2zxOdvSHYp vAYMoK6rxwzfr8hbneoiO hXuZPQpVUw4GHo5WZSijG slCdVpDXD8WmC1NRB8bNH upS6deVdyphgi uC4sG4NqOVNpkbfnGu71c T4wWnXmMrH5MYgcQrl+QU cNJJVKKUFPQNhgHB5HWA0 5HI13wWNyt5D3 eUU2A1LlQULcccnrddkla IK4DYSqBVDbyS70kOIlXU pdVd1im0F2b678CODuRDF yoW78Fj4chIlq NRVrmNHBxT0qhbdkg8tcf nkyPuGaLMCmHUc7XXd8FQ UykJzoZnHpUCZ6DcJ7UFZ 8jEPrbT9pxImk bripzG8xJsj+MDUvMDcvM Qu6OFiapZV+VVVoIPW4qX wfKAacWIFtzM9oFSZkS6i 1KfJxHpO5WJev P5MlVNXinlupFz38yE9cT kQeXcH2BTkwZ6LvrpD7LE LtaXTfUZbqZRJ2H18rb3B 8MPFbEFAkOZP3 vJH3sE7sfXwiphzhcBDlx DsgdmVydGljYWwtYWxpZ2 46IHRvcDsnPjYzIFllYXJ uFT07VN46xLZw k0Z2lZR4G6SjJBUthqnlg sqbnPS2AOJsPUCitS55nD UkIUqoHj9dj9H2g071BHB dZUYwfO39Sr1o bRdxBZZxoUOAoX0fjwwpt 3wblkfuKbDvOUMqIFg0IU d4URMwrSexJtYaCPB2NfQ 4DXG7uOHhmC5v xYahxgxzfT9jTuw+RkVNQ VkLZR12YB90xWArl1X0kO G2A5WfJIEmiyrtjvveyJK 7GYWbRACnhJ51 mFBbFXexSp1dd6E2x411N JHfKWYrfL52Wu8vtYqaGC CxsWFNfJ7btcryq0ijhfj gIzAwMDAwMDt0 JYg5QSYypNgvBoWeXZJ3Y zE8JFP1jGGqaC1xvRimzj kcyE4nRht+X5M2Z8SkNyj vdHI+PL26CDGz SP80iOVdbQVgw0zrkCr5I gFdODJsJSK9bIshBVmnp1 KeTVUzG78ddQHnp2T7JKR vbGxhcHNlOyBl uBS4dP0nQStwfbfqe1rns hmuYhjyt5rgpg40yN24F1 9sIHdpZHRoPSIzMCUiIHZ nkYowzh6ykA7s Ii8+LZByvMJ0bKS5jM6vD yNrVxZ0YGrmY708EjBqxH YdAopad6fxi5dpqVy5IzI wJSIgdmFsaWdu OFU0n1FmHn10M69jTCknI HRoPSIyMCUiIHZhbGlnbj 2hzL7eIy2+BS8by2qljl3 5zL52oYK+PHRk MUL2aHpkYSvcALJmmK2hO DwgKiJ9EHJuLqQgrQ96aY LkABziCs7ggUwvtOczKW9 wAYMoisedq008 HpMma1wzWXHjnOZwSVikV FQ0Y12dn4X9GDBsLQHhSH N6hZE6cX9iqVzgsyhkpGZ mdDsgdmVydGlj SSizGBvyT993HFQssQoiL hEvhBDaU8tzssTMGL6wPi wvdGQ+IYTnQHR1xSztIZj lRKVzsW2nOYRs A0r7BmRfUxY0LPhoI0Jst mR6ANZsuVEqUHYoyXWHvM 3wxthec4mexpfeJsUbZWJ fPIm8GPw6GBLt bYagXwAaLQM0AqR8CTZ1r WDfiB2jzQxnkegewH3qDq c+RklOOjwvdGQ+PHRkIHN 0eWxlPSdwYWRk kA3nOOZbK8i9VzTvFqG6W VfuI2RoqdL7FWFwaBMnBS QmzDRZuS4xclitl9btalp gIzAwMDAwMDt0 JHk5GIZxbUumEiDwAPD9B kA9YJE3vGKthB4qoVlvgh xcsR3vPqr+TVJOOjwvdGQ +JALbVCZ7ePiw JPeyNNYgiG1tPFCwR5e0N eKqVcS0SObvS7AoxaF4JD KiuUTjBQTfeMOIlL2tvng vr6jofcayZjVt SFJsNGm7XCc2ZTKulQlfI eVsKKH6JrH8VWN1qBFacE 1loOfwkreajF0yTjl+UGF 2TQQ6OP32DW05 G5DmCynvqSUkbBP+PHRhY mxlIHdpZHRoPScxMDAlJy SpsUjwEP6yNi8fIMTbMUI vbGxhcHNlOiBj b2x (more content not included)... Normal [facility] 05-13-2023 Consent [id number] 1 [id number] Normal [facility] Ambulatory Visit Summaryon 1 07-10-2022 Ambulatory Visit Summary CAROLINA GOMEZ :1960 Visit Date:05/10/2023 Ambulatory Visit Instructions Your Diagnosis Pre-op exam Right otitis media Your Care Team Attending Physician - Deya MAGANA, Marisela Olivas Primary Care Physician - Silvestre Benavides MD This Is Your Medications List albuterol (ProAir RespiClick 90 mcg/inh inhalation powder) albuterol-ipratropium (DuoNeb 2.5 mg-0.5 mg/3 mL Soln-Inh) azithromycin (azithromycin 250 mg Tab) celecoxib (celecoxib 200 mg Cap) cyclobenzaprine (cyclobenzaprine 10 mg Tab) denosumab (Prolia) fluticasone nasal (Flonase 0.05 mg/inh nasal spray) fluticasone-salmetero l (Advair Diskus 250 mcg-50 mcg inhalation powder) levothyroxine (levothyroxine 137 mcg (0.137 mg) Tab) montelukast (montelukast 10 mg Tab) ondansetron (Zofran 4 mg Tab) pantoprazole (Pantoprazole [address] Tab) semaglutide (Ozempic (1 mg dose)) upadacitinib (Rinvoq 15 mg oral tablet, extended release) Procedures Performed EGD (esophagogastroduoden oscopy) gastric outlet reduction (05/21/2022), Colonoscopy (05/09/2021), EGD - Esophagogastroduodeno scopy (05/09/2021), Cataract extraction, Cholecystectomy, Foot repair, Hysterectomy, Knee replacement, Tonsillectomy and adenoidectomy; age 12 or over. Discharge Vitals Heart Rate (Peripheral) 78 Respiratory Rate 18 Blood Pressure 138/88 Height 143.2 cm Height 56 in Weight 87.2 kg Weight 191.84 lb BMI 42.52 What to do next You Need to Complete the Following CBC w/ Auto Diff, Blood, Routine collect, 05/10/23, Order for future visit, Lab Collect, Pre-op exam Normal [facility] Office/Clini c Noteon 05-10-2023 [facility] Medicine Office/Clinic Note HPI Staff Carolina is a 62 year old female presenting for surgical clearance pt here here for left shoulder surgery clearance pt states she is having a left shoulder replacement by Dr Dunbar. Surgery is going to be May 20 2023. pt doesn't have any paperwork to be filled out just need letter stating she is cleared for surgery. History of Present Illness pt presents today for surgical clearance for left shoulder replacement Review of Systems ROS - Provider Constitutional: no fever, no chills, no sweats, no fatigue Respiratory: no shortness of breath, no cough, no orthopnea, no wheezing. Cardiovascular: no chest pain, no palpitations, no edema. Neurologic: no headache, no dizziness, no numbness, no weakness. Physical Exam Vitals & Measurements HR: 78(Peripheral) RR: 18 BP: 138/88 HT: 56 in HT: 143.2 cm WT: 87.2 kg WT: 191.84 lb BMI: 42.52 General: alert, no acute distress ENMT: oral mucosa moist, no pharyngeal erythema or exudate Cardiovascular: regular rate and rhythm, normal peripheral perfusion Respiratory: Lungs CTA, respirations non labored Extremities: no deformity, no trauma Neurological: oriented x 4, LOC appropriate for age, CN II-XII intact, motor strength equal & normal bilaterally, speech normal Assessment/Plan 1. Pre-op exam (Z01.818: Encounter for other preprocedural examination) pt presents today for pre surgical cleaance. pt had ekg and labs done at [facility] on Saturday. will request those results and review. if all clear will fax surgical clearance letter to Dr. Dunbar. all questions answered. RTC as needed Ordered: triamcinolone, 60 mg = 1.5 mL, Injection, IntraMuscular, Once, Stop date 05/10/23 14:15:00 EST, Routine, Start date 05/10/23 14:15:00 EST, 05/10/23 14:15:00 EST CBC w/ Auto Diff 2. Right otitis media (H66.91: Otitis media, unspecified, right ear) pt states she is still cough after finishing levaquin. right TM is red and left ear is bulging with clear fluid. will send z panchito. Ordered: triamcinolone, 60 mg = 1.5 mL, Injection, IntraMuscular, Once, Stop date 05/10/23 14:15:00 EST, Routine, Start date 05/10/23 14:15:00 EST, 05/10/23 14:15:00 EST 3. Cough (R05.9: Cough, unspecified) kenalog given in office today Ordered: triamcinolone, 60 mg = 1.5 mL, Injection, IntraMuscular, Once, Stop date 05/10/23 14:15:00 EST, Routine, Start date 05/10/23 14:15:00 EST, 05/10/23 14:15:00 EST 4. Fluid level behind tympanic membrane of both ears (H65.93: Unspecified nonsuppurative otitis media, bilateral) kenlaog given Ordered: triamcinolone, 60 mg = 1.5 mL, Injection, IntraMuscular, Once, Stop date 05/10/23 14:15:00 EST, Routine, Start date 05/10/23 14:15:00 EST, 05/10/23 14:15:00 EST 5. BMI 40.0-44.9, adult, (Z68.41: Body mass index [BMI] 40.0-44.9, adult) bmi education complete Body mass index [BMI] 40.0-44.9, adult 6. Morbid obesity with BMI of 40.0-44.9, adult (E66.01: Morbid (severe) obesity due to excess calories) Orders: azithromycin, = 1 packet(s), Oral, As Directed, as directed on package labeling, X 5 day(s), # 6 tab(s), Refills(s) 0, Pharmacy: [facility]/pharmacy #[id number], 143.2, cm, 05/10/23 13:59:00 EST, Height/Length Dosing, 87.2, kg, 05/10/23 13:59:00 EST, Weight Dosing Follow-up No qualifying data available Problem List/Past Medical History Ongoing Allergic rhinitis Anemia Annual physical exam Bilateral otitis media BMI 40.0-44.9, adult Chronic peripheral venous hypertension with lower extremity complication Chronic sinusitis Colitis Cough Derangement of knee Diverticular disease Esophageal web Exposure to COVID-19 virus Fluid level behind tympanic membrane of both ears Gastroesophageal reflux disease without esophagitis Hemorrhoids Hx of pulmonary embolus Hypothyroidism Hypoxemia Low hemoglobin Moderate asthma without complication Morbid obesity with BMI of 40.0-44.9, adult Nasal congestion Non-insulin dependent type 2 diabetes mellitus Obesity due to excess calories Oral thrush Pre-op exam Rheumatoid arthritis involving multiple sites with positive rheumatoid factor Right otitis media Shortness of breath Viral gastritis Weight loss, unintentional Wheezing Historical Arthritis Asthma Change in bowel habits COVID-19 Dysphagia Loose stools Nausea Procedure/Surgical History EGD (esophagogastroduoden oscopy) gastric outlet reduction (05/21/2022), Colonoscopy (05/09/2021), EGD - Esophagogastroduodeno scopy (05/09/2021), Cataract extraction, Cholecystectomy, Foot repair, Hysterectomy, Knee replacement, Tonsillectomy and adenoidectomy; age 12 or over. Medications Advair Diskus 250 mcg-50 mcg inhalation powder, See Instructions, 1 refills azithromycin 250 mg Tab, 1 packet(s), Oral, As Directed celecoxib 200 mg Cap, 200 mg= 1 cap(s), Oral, BID cyclobenzaprine 10 mg Tab, 10 mg= 1 tab(s), Oral, TID, PRN DuoNeb 2.5 mg-0.5 mg/3 mL Soln-Inh, 3 mL, NEB, 6x/Day, 1 refills Flonase 0.05 m (more content not included)... Normal [facility] Comment on above: Result Comment: Elec tronically Signed By: Marisela Canales\.br\Date and Time Signed: 05/10/23 14:55 EST Progress Note - Nurseon 05-01 Progress Note - Nurse PAT review reviewed again by Dr. Curran after talking with Dr. Dunbar, no orders received. [Electronically Signed on: 05/10/2023 13:37 EST] Jessenia Ayon RN [Verified on: 05/10/2023 13:37 EST] Jessenia Ayon RN [facility] Progress Note - Nurseon - Progress Note - Nurse Tonia from Dr. Dunbar's office calls back to confirm that Dr. Dunbar is ok with pt being on Methylprednisolone dose pack along with her use of Rinvoq. PAT returned to Dr. Curran with note to make aware. [Electronically Signed on: 05/08/2023 09:15 EST] Noemi Storm RN [Verified on: 05/08/2023 09:15 EST] Noemi Storm RN [facility] Consultation Noteon 05-07-20 23 Consultation Note [id number] .[id number] [facility] Progress Note - Nurseon Progress Note - Nurse PAT reviewed by Dr. Curran, and req. Dr. Dunbar be made aware that pt has been on Methylprednisolone dose pack started 04-23-23 along with her use of immunosuppressive Rinvoq. Tonia at Dr. Dunbar's office called and informed of this-she will contact him and get back with us. [Electronically Signed on: 05/07/2023 13:01 EST] Jessenia Ayon RN [Verified on: 05/07/2023 13:01 EST] Jessenia Ayon RN Normal [facility] C MRSA Screenon 05-04-2023 C MRSA Screen Negative [facility] Comment on above: Performed By: #### 1 [id number] ####[facility] (DEFAULT)[address] [place] [address] .Auto Diff 1on 05-03-2023 Auto [place] % 6 % Normal 1-12 [facility] Comment on above: Performed By: #### 7 [id number], [id number], [id number] ####[facility] (DEFAULT)[address] [place] [address] Baso Abs# 0.0 x10 Normal 0.0-0.2 [facility] Comment on above: Performed By: #### 7 [id number], [id number], [id number] ####[facility] (DEFAULT)[address] [place] [address] Basophils/100 WBC (Bld) 0.3 % Normal 0.2-2.0 [facility] Comment on above: Performed By: #### 7 [id number], [id number], [id number] ####[facility] (DEFAULT)[address] [place] [address] Eos Abs# 0.1 x10 Normal 0.0-0.4 [facility] Comment on above: Performed By: #### 7 [id number], [id number], [id number] ####[facility] (DEFAULT)[address] [place] [address] Eosinophils/100 WBC (Bld) 1.2 % Normal 0.9-4.0 [facility] Comment on above: Performed By: #### 7 [id number], [id number], [id number] ####[facility] (DEFAULT)[address] [place] [address] Lymph Abs# 2.3 x10 Normal 1.3-2.9 [facility] Comment on above: Performed By: #### 7 [id number], [id number], [id number] ####[facility] (DEFAULT)[address] [place] [address] 66335 Lymphocytes/100 WBC (Bld) 25 % Normal 14-48 [facility] Comment on above: Performed By: #### 7 [id number], [id number], [id number] ####[facility] (DEFAULT)[address] [place] [address]777 [place] Abs# 0.5 x10 Normal 0.0-0.8 [facility] Comment on above: Performed By: #### 7 [id number], [id number], [id number] ####[facility] (DEFAULT)[address] [place] [address] 58304 Neut Abs# 6.2 x10 Normal 1.5-9.2 [facility] Comment on above: Performed By: #### 7 [id number], [id number], [id number] ####[facility] (DEFAULT)[address] [place] [address] 92141 Neutrophils/100 WBC (Bld) 68 % Normal 44-88 [facility] Comment on above: Performed By: #### 7 [id number], [id number], [id number] ####[facility] (DEFAULT)[address] [place] [address] Standardon 05-03-2023 eGFR Non AA >60 Invalid Interpretation Code [facility] Comment on above: Performed By: #### 7 [id number], [id number], [id number] ####[facility] (DEFAULT)[address] [place] [address] 39412 eGFR AA >60 Invalid Interpretation Code [facility] Comment on above: Performed By: #### 7 [id number], [id number], [id number] ####[facility] (DEFAULT)[address] [place] [address] 31579 Anion gap [Moles/Vol] 8.5 mmol/L Normal 5.0-19.0 [facility] Comment on above: Performed By: #### 7 [id number], [id number], [id number] ####[facility] (DEFAULT)[address] [place] [address] 05640 Calcium [Mass/Vol] 8.5 mg/dL Low 8.9-10.3 [facility] Comment on above: Performed By: #### 7 [id number], [id number], [id number] ####[facility] (DEFAULT)[address] [place] [address] 86656 Chloride [Moles/Vol] 104 mmol/L Normal 101-111 [facility] Comment on above: Performed By: #### 7 [id number], [id number], [id number] ####[facility] (DEFAULT)[address] [place] [address] 70388 CO2 [Moles/Vol] 27 mmol/L Normal 21-32 [facility] Comment on above: Performed By: #### 7 144292, [id number], [id number] ####[facility] (DEFAULT)[address] [place] [address] 21638 Creatinine [Mass/Vol] 0.57 mg/dL Low 0.60-1.30 [facility] Comment on above: Performed By: #### 7 317807, [id number], [id number] ####[facility] (DEFAULT)[address] [place] [address] 48746 Glucose [Mass/Vol] 126.0 mg/dL High 74.0-118.0 [facility] Comment on above: Performed By: #### 7 656139, [id number], [id number] ####[facility] (DEFAULT)[address] [place] [address] 54102 Osmolality 275 mOsm/L Invalid Interpretation Code [facility] Comment on above: Performed By: #### 7 [id number], [id number], [id number] ####[facility] (DEFAULT)[address] [place] [address] 63399 Potassium [Moles/Vol] 3.5 mmol/L Low 3.6-5.1 [facility] Comment on above: Performed By: #### 7 193418, [id number], [id number] ####[facility] (DEFAULT)[address] [place] [address] 75087 Sodium [Moles/Vol] 136.0 mmol/L Normal 136.0-144.0 [facility] Comment on above: Performed By: #### 7 716901, [id number], [id number] ####[facility] (DEFAULT)[address] [place] [address] 76588 Urea nitrogen [Mass/Vol] 18 mg/dL Normal 8-26 [facility] Comment on above: Performed By: #### 7 584078, [id number], [id number] ####[facility] (DEFAULT)[address] [place] [address] Urea nitrogen/Creatinine [Mass ratio] 31.5 mg/mg High 4.6-16.2 [facility] Comment on above: Performed By: #### 7 274472, [id number], [id number] ####[facility] (DEFAULT)[address] [place] [address] CBC w/ Auto Diffon 3 Erythrocyte distribution width (RBC) [Ratio] 15.6 % High 11.5-15.0 [facility] Comment on above: Performed By: #### 7 744582, [id number], [id number] #### [facility] (DEFAULT) [address] [place] [address] 27205 Hematocrit (Bld) [Volume fraction] 37.9 % Normal 33.7-40.4 [facility] Comment on above: Performed By: #### 7 386203, [id number], [id number] #### [facility] (DEFAULT) [address] [place] [address] 33057 Hemoglobin (Bld) [Mass/Vol] 12.6 g/dL Normal 11.3-15.9 [facility] Comment on above: Performed By: #### 7 344131, [id number], [id number] #### [facility] (DEFAULT) [address] [place] [address] Man Diff? Auto Invalid Interpretation Code [facility] Comment on above: Performed By: #### 7 710505, [id number], [id number] #### [facility] (DEFAULT) [address] [place] [address] 26407 MCH (RBC) [Entitic mass] 30 pg Normal 24-34 [facility] Comment on above: Performed By: #### 7 [id number], [id number], [id number] #### [facility] (DEFAULT) [address] [place] [address] MCHC (RBC) [Mass/Vol] 33 g/dL Normal 26-37 [facility] Comment on above: Performed By: #### 7 [id number], [id number], [id number] #### [facility] (DEFAULT) [address] [place] [address] MCV (RBC) [Entitic vol] 89 fL Normal 81-100 [facility] Comment on above: Performed By: #### 7 [id number], [id number], [id number] #### [facility] (DEFAULT) [address] [place] [address] Platelet 288 x10 Normal 138-427 [facility] Comment on above: Performed By: #### 7 871276, [id number], [id number] #### [facility] (DEFAULT) [address] [place] [address] Platelet mean volume (Bld) [Entitic vol] 7.2 fL Normal 6.3-10.2 [facility] Comment on above: Performed By: #### 7 516259, [id number], [id number] #### [facility] (DEFAULT) [address] [place] [address] RBC 4.26 x10 Normal 3.70-5.30 [facility] Comment on above: Performed By: #### 7 440542, [id number], [id number] #### [facility] (DEFAULT) [address] [place] [address] WBC 9.1 x10 Normal 3.5-10.5 [facility] Comment on above: Result Comment: Slid e Reviewed Performed By: #### 7 [id number] #### [facility] (DEFAULT) [address] [place] [address] UA [id number] 05-03-2023 UA Bacteria Trace Normal [facility] Comment on above: Order Comment: Urina lysis Microscopic order added on by [employer] Rules system. Performed By: #### 5 [id number], [id number] #### [facility] (DEFAULT) [address] [place] [address] UA RBC 0-2 [facility] Comment on above: Order Comment: Urina lysis Microscopic order added on by [employer] Rules system. Performed By: #### 5 [id number], [id number] #### [facility] (DEFAULT) [address] [place] [address] UA Squam Epi Few [facility] Comment on above: Order Comment: Urina lysis Microscopic order added on by [employer] Rules system. Performed By: #### 5 [id number], [id number] #### [facility] (DEFAULT) [address] [place] [address] UA WBC 0-2 [facility] Comment on above: Order Comment: Urina lysis Microscopic order added on by [employer] Rules system. Performed By: #### 5 [id number], [id number] #### [facility] (DEFAULT) [address] [place] [address] UA w Culture if Ind Standard on 05-03-2023 Breakpoint UA [facility] Comment on above: Performed By: #### 5 [id number], [id number] #### [facility] (DEFAULT) [address] [place] [address] Color (U) Yellow [facility] Comment on above: Performed By: #### 5 [id number], [id number] #### [facility] (DEFAULT) [address] [place] [address] Culture? Not Indicated Invalid Interpretation Code [facility] Comment on above: Result Comment: Resu lt created by rule GL_MAGR_ADD_UA_CULT Result created by rule GL_MAGR_ADD_UA_CULT Result created by rule GL_MAGR_ADD_UA_CULT1 Performed By: #### 5 [id number], [id number] #### [facility] (DEFAULT) [address] [place] [address] Glucose (U) [Mass/Vol] Negative [facility] Comment on above: Performed By: #### 5 [id number], [id number] #### [facility] (DEFAULT) [address] [place] [id number] Ketones Ql (U) Negative Normal [facility] Comment on above: Performed By: #### 5 [id number], [id number] #### [facility] (DEFAULT) [address] [place] [address] Micro? Indicated Invalid Interpretation Code [facility] Comment on above: Result Comment: Resu lt created by rule GL_MAGR_ADD_UA_MICRO Performed By: #### 5 [id number], [id number] #### [facility] (DEFAULT) [address] [place] [id number] UA Bilirubin Negative Normal [facility] Comment on above: Performed By: #### 5 [id number], [id number] #### [facility] (DEFAULT) [address] [place] [address] UA Blood Negative Normal NEGATIVE [facility] Comment on above: Performed By: #### 5 [id number], [id number] #### [facility] (DEFAULT) [address] [place] [address] UA Clarity CLEAR Normal CLEAR [facility] Comment on above: Performed By: #### 5 [id number], [id number] #### [facility] (DEFAULT) [address] [place] [address] UA Leuk Est TRACE Abnormal NEGATIVE [facility] Comment on above: Performed By: #### 5 [id number], [id number] #### [facility] (DEFAULT) [address] [place] [address] UA Nitrite Negative Normal NEGATIVE [facility] Comment on above: Performed By: #### 5 [id number], [id number] #### [facility] (DEFAULT) [address] [place] [address] 15094 UA pH 6.0 Normal 5-8 [facility] Comment on above: Performed By: #### 5 [id number], [id number] #### [facility] (DEFAULT) [address] [place] [address] [id number] UA Protein Negative Normal NEGATIVE [facility] Comment on above: Performed By: #### 5 [id number], [id number] #### [facility] (DEFAULT) [address] [place] [address] UA Spec Grav 1.010 Normal 1.001-1.035 [facility] Comment on above: Performed By: #### 5 [id number], [id number] #### [facility] (DEFAULT) [address] [place] [address] UA Urobilinogen 0.2 mg/dL Normal 0.2-1.0 [facility] Comment on above: Performed By: #### 5 [id number], [id number] #### [facility] (DEFAULT) [address] [place] [address] Urine Source Clean Catch Normal [facility] Comment on above: Performed By: #### 5 [id number], [id number] #### [facility] (DEFAULT) [address] [place] [address] Ambulatory Visit Summaryon 1 Ambulatory Visit Summary CAROLINA GOMEZ :1960 Visit Date:04/23/2023 Ambulatory Visit Instructions Your Diagnosis Bilateral otitis media Chronic sinusitis BMI 40.0-44.9, adult Non-smoker Your Care Team Attending Physician - Marisela Canales Primary Care Physician - Silvestre Benavides MD This Is Your Medications List albuterol (ProAir RespiClick 90 mcg/inh inhalation powder) albuterol-ipratropium (DuoNeb 2.5 mg-0.5 mg/3 mL Soln-Inh) celecoxib (celecoxib 200 mg Cap) cyclobenzaprine (cyclobenzaprine 10 mg Tab) denosumab (Prolia) fluticasone nasal (Flonase 0.05 mg/inh nasal spray) fluticasone-salmetero l (Advair Diskus 250 mcg-50 mcg inhalation powder) levofloxacin (levofloxacin 750 mg Tab) levothyroxine (levothyroxine 137 mcg (0.137 mg) Tab) montelukast (montelukast 10 mg Tab) ondansetron (Zofran 4 mg Tab) pantoprazole (Pantoprazole [address] Tab) semaglutide (Ozempic (1 mg dose)) upadacitinib (Rinvoq 15 mg oral tablet, extended release) Procedures Performed EGD (esophagogastroduoden oscopy) gastric outlet reduction (05/21/2022), Colonoscopy (05/09/2021), EGD - Esophagogastroduodeno scopy (05/09/2021), Cataract extraction, Cholecystectomy, Foot repair, Hysterectomy, Knee replacement, Tonsillectomy and adenoidectomy; age 12 or over. Discharge Vitals Temperature (Tympanic) 37.1 ?C Heart Rate (Peripheral) 88 Respiratory Rate 18 Blood Pressure 122/76 Height 143.2 cm Height 56 in Weight 85.95 kg Weight 189.09 lb BMI 41.91 What to do next Scheduled Follow-Up Appointments Saturday 2:00 PM EDT With: Marisela Canales Where: [facility] [address] [facility] [address] [place] [address]- \.br\ Medications\.br\ What How Much When Instructions\.br\ Unchanged albuterol (ProAir RespiClick 90 mcg/ inh inhalation powder) 2 Puffs Inhalation Every 4 hours as needed for for wheezing or SOB\.br\ Unchanged albuterol-ipratro pium (DuoNeb 2.5 mg-0.5 mg/ 3 mL Soln-Inh) 3 Milliliter Nebulized inhalation (aerosol) 6 times a day\.br\ Unchanged celecoxib (celecoxib 200 mg Cap) 1 Capsules By Mouth 2 times a day\.br\ Unchanged cyclobenzaprine (cyclobenzaprine 10 mg Tab) 1 Tablets By Mouth 3 times a day as needed for for spasm prn back pain \.br\ Unchanged denosumab (Prolia) 60 Milligram Subcutaneous Every 6 months\.br\ Unchanged fluticasone nasal (Flonase 0.05 mg/ inh nasal spray) 2 Sprays Nasal Inhalation Every day\.br\ Unchanged fluticasone-salme terol (Advair Diskus 250 mcg-50 mcg inhalation powder) See instructions one puff inhales in the morning and night \.br\ Unchanged levofloxacin (levofloxacin 750 mg Tab) 1 Tablets By Mouth Every 24 hours Duration: 7 Days Pickup at [facility]/pharmacy #[id number]\.br\ Unchanged levothyroxine (levothyroxine 137 mcg (0.137 mg) Tab) See instructions TAKE 1 TABLET BY MOUTH EVERY DAY \.br\ Unchanged montelukast (montelukast 10 mg Tab) See instructions TAKE 1 TABLET BY MOUTH TWICE A DAY \.br\ Unchanged ondansetron (Zofran 4 mg Tab) 1 Tablets By Mouth Every 6 hours\.br\ Unchanged pantoprazole (Pantoprazole [address] Tab) 1 Tablets By Mouth Every day Duration: 90 Days\.br\ Unchanged semaglutide (Ozempic (1 mg dose)) 1 Milligram Subcutaneous Every week Ordered by another provider. \.br\ Unchanged upadacitinib (Rinvoq 15 mg oral tablet, extended release)\.br\ Pharmacy Information\.br\ [facility]/pharmacy #[id number]: [address], [place] [id number] [phone]\.br\ Allergies\.br\ Cefzil (Unknown)\.br\ Eliquis (Unknown)\.br\ Keflex (Hives)\.br\ Pradaxa (Unknown)\.br\ penicillin G benzathine (Hives)\.br\ Problems\.br\ Ongoing - Any problem that you are currently receiving treatment for.\.br\ Allergic rhinitis\.br\ Anemia\.br\ Annual physical exam\.br\ Bilateral otitis media\.br\ BMI 40.0-44.9, adult\.br\ Chronic peripheral venous hypertension with lower extremity complication\.br\ Chronic sinusitis\.br\ Colitis\.br\ Cough\.br\ Derangement of knee\.br\ Diverticular disease\.br\ Esophageal web\.br\ Exposure to COVID-19 virus\.br\ Gastroesophageal reflux disease without esophagitis\.br\ Hemorrhoids\.br\ Hx of pulmonary embolus\.br\ Hypothyroidism\.b r\ Hypoxemia\.br\ Moderate asthma without complication\.br\ Nasal congestion\.br\ Non-insulin dependent type 2 diabetes mellitus\.br\ Obesity due to excess calories\.br\ Oral thrush\.br\ Rheumatoid arthritis involving multiple sites with positive rheumatoid factor\.br\ Shortness of breath\.br\ Viral gastritis\.br\ Weight loss, unintentional\.br \ Wheezing\.br\ Historical - Any problem that you are no longer receiving treatment for.\.br\ Arthritis\.br\ Asthma\.br\ Change in bowel habits\.br\ COVID-19\.br\ Dysphagia\.br\ Loose stools\.br\ Nausea\.br\ Patient Survey\.br\ You may receive a survey via text or e-mail asking about your office visit. Please share your experience with us by completing your survey. We appreciate your feedback and thank you for choosing us for your care.\.br\ \.br\ [facility] CNCOon 04-23-2023 CNCO Letter Text Normal [facility] Medicine Office/Clini c Noteon 04-23-2023 Family Medicine Office/Clinic Note HPI Staff Carolina is a 62 year old female presenting for acute sick visit Respiratory C/O: Onset: 4 days ago Body aches: no Chest congestion: yes Chills: no Cough: yes Ear complaints: yes right one feels full of fluid Eye itching/watering: yes Fever: no Headache: yes Nasal congestion: yes Nasal discharge: no Poor appetite: yes Reduced activity: no Sinus pain/pressure: yes Sneezing: yes Sputum production: yes yellow Wheezing: yes at night Ill contacts: yes Remedies tried: advil cold and sinus Questions/Concerns: History of Present Illness pt presents today for URI symptoms Review of Systems PHQ Score Initial Depression Screen Score: 0 ROS - Provider Constitutional: no fever, no chills, no sweats, no fatigue Respiratory: no shortness of breath, yes cough, no orthopnea, yes wheezing. nasal congestion sinus pressure Cardiovascular: no chest pain, no palpitations, no edema. Neurologic: no headache, no dizziness, no numbness, no weakness. Physical Exam Vitals & Measurements T: 37.1 ?C(Tympanic) HR: 88(Peripheral) RR: 18 BP: 122/76 SpO2: 98% HT: 56 in HT: 143.2 cm WT: 85.95 kg WT: 189.09 lb BMI: 41.91 General: alert, no acute distress ENMT: oral mucosa moist, yes pharyngeal erythema or no exudate, JOHANNA TM red and full of clear fluid Cardiovascular: regular rate and rhythm, normal peripheral perfusion Respiratory: Lungs CTA, respirations non labored Extremities: no deformity, no trauma Neurological: oriented x 4, LOC appropriate for age, CN II-XII intact, motor strength equal & normal bilaterally, speech normal Assessment/Plan 1. Bilateral otitis media (H66.93: Otitis media, unspecified, bilateral) pt presents today with sinus congestion and pressure, ears feel full, headache. JOHANNA otits media noted on exam. will send levaquin and pt has medrol dose pack at home that she will start today. all questions answered. RTC as needed 2. Chronic sinusitis (J32.9: Chronic sinusitis, unspecified) sinus infection 3. BMI 40.0-44.9, adult (Z68.41: Body mass index [BMI] 40.0-44.9, adult) BMi education complete 4. Non-smoker (Z78.9: Other specified health status) continue not smoking Orders: levofloxacin, 750 mg = 1 tab(s), Oral, q24hr, X 7 day(s), # 7 tab(s), Refills(s) 0, Pharmacy: [facility]/pharmacy #[id number], 143.2, cm, 04/23/23 14:53:00 EDT, Height/Length Dosing, 86, kg, 04/23/23 14:53:00 EDT, Weight Dosing methylPREDNISolone, = 1 packet(s), Oral, Once, as directed on package labeling, # 21 tab(s), Refills(s) 0, Pharmacy: [facility]/pharmacy #[id number], 143.2, cm, 12/05/22 15:37:00 EDT, Height/Length Dosing, 85.3, kg, 12/05/22 15:37:00 EDT, Weight Dosing nirmatrelvir-ritonavi r, See Instructions, Oral, BID, 30 tab(s), Refill(s) 0, 3 Tablets twice daily for 5 days, [facility]/pharmacy #[id number], 143.2, cm, 12/05/22 15:37:00 EDT, Height/Length Dosing, 85.3, kg, 12/05/22 15:37:00 EDT, Weight Dosing Follow-up No qualifying data available Problem List/Past Medical History Ongoing Allergic rhinitis Anemia Annual physical exam Bilateral otitis media BMI 40.0-44.9, adult Chronic peripheral venous hypertension with lower extremity complication Chronic sinusitis Colitis Cough Derangement of knee Diverticular disease Esophageal web Exposure to COVID-19 virus Gastroesophageal reflux disease without esophagitis Hemorrhoids Hx of pulmonary embolus Hypothyroidism Hypoxemia Moderate asthma without complication Nasal congestion Non-insulin dependent type 2 diabetes mellitus Obesity due to excess calories Oral thrush Rheumatoid arthritis involving multiple sites with positive rheumatoid factor Shortness of breath Viral gastritis Weight loss, unintentional Wheezing Historical Arthritis Asthma Change in bowel habits COVID-19 Dysphagia Loose stools Nausea Procedure/Surgical History EGD (esophagogastroduoden oscopy) gastric outlet reduction (05/21/2022), Colonoscopy (05/09/2021), EGD - Esophagogastroduodeno scopy (05/09/2021), Cataract extraction, Cholecystectomy, Foot repair, Hysterectomy, Knee replacement, Tonsillectomy and adenoidectomy; age 12 or over. Medications Advair Diskus 250 mcg-50 mcg inhalation powder, See Instructions, 1 refills celecoxib 200 mg Cap, 200 mg= 1 cap(s), Oral, BID cyclobenzaprine 10 mg Tab, 10 mg= 1 tab(s), Oral, TID, PRN DuoNeb 2.5 mg-0.5 mg/3 mL Soln-Inh, 3 mL, NEB, 6x/Day, 1 refills Flonase 0.05 mg/inh nasal spray, 2 spray(s), Nasal, Daily levofloxacin 750 mg Tab, 750 mg= 1 tab(s), Oral, q24hr levothyroxine 137 mcg (0.137 mg) Tab, See Instructions montelukast 10 mg Tab, See Instructions Ozempic (1 mg dose), 1 mg, SubCutaneous, qWeek Pantoprazole [address] Tab, 40 mg= 1 tab(s), Oral, Daily, 3 refills ProAir RespiClick 90 mcg/inh inhalation powder, 2 puff(s), Inhalation, q4hr, PRN, 11 refills Prolia, 60 mg, SubCutaneous, q6mo Rinvoq 15 mg oral tablet, extended release Zofran 4 mg Tab, 4 mg= 1 tab(s), Oral, q6hr, 1 refills Luis (more content not included)... Normal [facility] Comment on above: Result Comment: Elec tronically Signed By: Marisela Canales\.br\Date and Time Signed: 04/23/23 15:15 EDT Consultation Noteon 04-16-20 Consultation Note [id number] .[id number] Normal [facility] RAD - MISCon 03-26-2023 RAD - MISC [id number] .00CD:127 Normal [facility] RAD MIS [id number]. 00CD:127 [facility] Ambulatory Visit Summaryon 0 03-20-2023 Ambulatory Visit Summary CAROLINA GOMEZ :1960 Visit Date:03/20/2023 Ambulatory Visit Instructions Your Diagnosis Exposure to COVID-19 virus Cough Nasal congestion Shortness of breath Wheezing Your Care Team Attending Physician - Marisela Canales Primary Care Physician - Silvestre Benavides MD This Is Your Medications List albuterol (ProAir RespiClick 90 mcg/inh inhalation powder) albuterol-ipratropium (DuoNeb 2.5 mg-0.5 mg/3 mL Soln-Inh) benzonatate (benzonatate 200 mg oral capsule) celecoxib (celecoxib 200 mg Cap) cyclobenzaprine (cyclobenzaprine 10 mg Tab) denosumab (Prolia) fluticasone nasal (Flonase 0.05 mg/inh nasal spray) fluticasone-salmetero l (Advair Diskus 250 mcg-50 mcg inhalation powder) levofloxacin (levofloxacin 750 mg Tab) levothyroxine (levothyroxine 137 mcg (0.137 mg) Tab) methylPREDNISolone (methylPREDNISolone 4 mg tab dosepak) montelukast (montelukast 10 mg Tab) nirmatrelvir-ritonavi r (Paxlovid 150 mg-100 mg oral tablet) ondansetron (Zofran 4 mg Tab) semaglutide (Ozempic (1 mg dose)) upadacitinib (Rinvoq 15 mg oral tablet, extended release) Procedures Performed EGD (esophagogastroduoden oscopy) gastric outlet reduction (05/21/2022), Colonoscopy (05/09/2021), EGD - Esophagogastroduodeno scopy (05/09/2021), Cataract extraction, Cholecystectomy, Foot repair, Hysterectomy, Knee replacement, Tonsillectomy and adenoidectomy; age 12 or over. What to do next Scheduled Follow-Up Appointments Saturday 1:40 PM EDT With: Teodora Ott CNP Where: [facility] Normal [facility] Renea 03-14-2023 RAUL Telephone ([employer]) CAROLINA GOMEZ ([id number]) 1960 F Date Time Provider Department 03/14/23 STEVO NEFF During your visit today, we recorded the following information about you: Andressa Sanders 03/14/2023 11:44 AM Addendum [facility] calling regarding prior auth for Rinvoq ER. They will be faxing over the renewal form today. Can call prior auth at [phone]. Pharm is [phone]. Mary Layne LPN 03/15/2023 11:11 AM Signed PA form received. Completed and faxed to [facility] along with chart notes. Mary Layne LPN 03/18/2023 11:23 AM Signed [facility] faxes approval of Rinvoq. Approved until 03/17/2024. Allergies As of Date: 03/14/2023 Noted Allergy Reaction KEFLEX (CEPHALEXIN) 10/18/2004 No Latex Allergy [Other] 10/18/2004 PENICILLINS 01/05/2004 Date Reviewed: 05/07/2022 Reviewed by: Stevo Neff MD - Fully Assessed Reason for Visit: Rinvoq prior auth renewal [Other] Prescriptions as of 03/18/2023 - upadacitinib (RINVOQ) Tb24 tablet Take 1 tablet (15 mg) by mouth once daily. Swallow whole; DO NOT crush, chew, or open. - celecoxib (CELEBREX) 200 mg capsule TAKE 1 CAPSULE BY MOUTH TWICE A DAY - ergocalciferol 50,000 unit capsule (VITAMIN D2, DRISDOL) (take by mouth with food twice a week, ONE CAPSULE ON SATURDAY AND ONE ON SATURDAY) FOR A TOTAL OF 8 WEEKS. - levothyroxine (SYNTHROID) 75 mcg tablet TAKE 1.5 TABLETS ON SATURDAY, SATURDAY, SATURDAY, SATURDAY AND 2 TABLETS THE OTHER 3 DAYS - EPIPEN 2-PANCHITO 0.3 mg/0.3 mL (1:1,000) atIn - LANSOPRAZOLE 30 mg capsule Take 1 capsule by mouth daily at bedtime. - zafirlukast (ACCOLATE) 20 mg tablet Take 1 tablet by mouth twice daily. - fluticasone (FLONASE) 50 mcg/actuation nasal spray 1 [place] daily at bedtime. in each nostril. - Cholecalciferol, Vitamin D3, 1,000 unit ORAL Tab Take 1 tablet by mouth once daily. - Doxycycline Monohydrate 40 mg capsule Take 1 capsule by mouth. - CITRACAL 500 MG (2,376 MG) EFFERVESCENT TAB Take one(1) tablet two(2) times daily. 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 [*11/25/2015 Rotator cuff arthropathy of left shoulder [M12.*05/07/2022 Bilateral wrist pain [M25.531, M25.532] 05/07/2022 Bilateral hand pain [M79.641, M79.642] 05/07/2022 Family history of gout [Z82.69] 05/07/2022 Secondary osteoarthritis of multiple sites [M15*05/07/2022 Family history of rheumatoid arthritis [Z82.61] 05/07/2022 AILEEN positive [R76.8] 05/07/2022 Rheumatoid arthritis of multiple sites without *05/07/2022 Postmenopausal osteoporosis of multiple sites [*05/07/2022 Long-term use of high-risk medication [Z79.899] 05/07/2022 Cyclic citrullinated peptide (CCP) antibody pos*05/09/2022 Rheumatoid factor positive [R76.8] 05/09/2022 Encounter Status:Closed by MARY LAYNE on 03/18/23 Normal [facility] Consultation Noteon 02-27-20 Consultation Note [id number]. 00CD:127 Normal [facility] Ambulatory Visit Summaryon 0 12-05-2022 Ambulatory Visit Summary CAROLINA GOMEZ :1960 Visit Date:12/05/2022 Ambulatory Visit Instructions Your Diagnosis Esophageal web Acid reflux Anemia Your Care Team Attending Physician - Teodora Ott CNP Primary Care Physician - ALINE GUERRERO MD This Is Your Medications List pantoprazole (Pantoprazole [address] Tab) Contact prescribing physician if questions or concerns albuterol (ProAir RespiClick 90 mcg/inh inhalation powder) albuterol-ipratropium (DuoNeb 2.5 mg-0.5 mg/3 mL Soln-Inh) celecoxib (celecoxib 200 mg Cap) cyclobenzaprine (cyclobenzaprine 10 mg Tab) denosumab (Prolia) fluticasone nasal (Flonase 0.05 mg/inh nasal spray) fluticasone-salmetero l (Advair Diskus 250 mcg-50 mcg inhalation powder) levothyroxine (levothyroxine 137 mcg (0.137 mg) Tab) montelukast (montelukast 10 mg Tab) ondansetron (Zofran 4 mg Tab) semaglutide (Ozempic (1 mg dose)) upadacitinib (Rinvoq 15 mg oral tablet, extended release) [Image Removed: STOP]Stop taking these medications omeprazole (omeprazole 40 mg Cap-DR) Procedures Performed EGD (esophagogastroduoden oscopy) gastric outlet reduction (05/21/2022), Colonoscopy (05/09/2021), EGD - Esophagogastroduodeno scopy (05/09/2021), Cataract extraction, Cholecystectomy, Foot repair, Hysterectomy, Knee replacement, Tonsillectomy and adenoidectomy; age 12 or over. Discharge Vitals Temperature (Temporal Artery) 36.7 ?C Heart Rate (Peripheral) 81 Blood Pressure 126/82 Height 143.2 cm Height 56 in Weight 85.3 kg Weight 187.66 lb BMI 41.6 What to do next Scheduled Follow-Up Appointments Saturday 3:45 PM EDT With: Haim Do DO Where: [facility] 2022 8:20 AM EDT With: Where: [facility] Invalid Interpretation Code [address] [place] [address]- \.br\ Saturday 1:40 PM EDT \.br\ With: Teodora Ott CNP\.br\ Where: [facility] Ambulatory Visit Summary CAROLINA GOMEZ :1960 Visit Date:12/05/2022 Ambulatory Visit Instructions Your Diagnosis Esophageal web Acid reflux Anemia Your Care Team Attending Physician - Teodora Ott CNP Primary Care Physician - ALINE GUERRERO MD This Is Your Medications List pantoprazole (Pantoprazole [address] Tab) Contact prescribing physician if questions or concerns albuterol (ProAir RespiClick 90 mcg/inh inhalation powder) albuterol-ipratropium (DuoNeb 2.5 mg-0.5 mg/3 mL Soln-Inh) celecoxib (celecoxib 200 mg Cap) cyclobenzaprine (cyclobenzaprine 10 mg Tab) denosumab (Prolia) fluticasone nasal (Flonase 0.05 mg/inh nasal spray) fluticasone-salmetero l (Advair Diskus 250 mcg-50 mcg inhalation powder) levothyroxine (levothyroxine 137 mcg (0.137 mg) Tab) montelukast (montelukast 10 mg Tab) ondansetron (Zofran 4 mg Tab) semaglutide (Ozempic (1 mg dose)) upadacitinib (Rinvoq 15 mg oral tablet, extended release) [Image Removed: STOP]Stop taking these medications omeprazole (omeprazole 40 mg Cap-DR) Procedures Performed EGD (esophagogastroduoden oscopy) gastric outlet reduction (05/21/2022), Colonoscopy (05/09/2021), EGD - Esophagogastroduodeno scopy (05/09/2021), Cataract extraction, Cholecystectomy, Foot repair, Hysterectomy, Knee replacement, Tonsillectomy and adenoidectomy; age 12 or over. Discharge Vitals Temperature (Temporal Artery) 36.7 ?C Heart Rate (Peripheral) 81 Blood Pressure 126/82 Height 143.2 cm Height 56 in Weight 85.3 kg Weight 187.66 lb BMI 41.6 What to do next Scheduled Follow-Up Appointments Saturday 3:45 PM EDT With: Haim Do DO Where: [facility] 2022 8:20 AM EDT With: Where: [facility] Normal [address] [id number]- \.br\ You Need to Schedule the Following Appointments\.br\ Follow Up with Teodora Ott CNP When: Within 3 months\.br\ Where:\.br\ You Need to Complete the Following\.br\ Comprehensive Metabolic Panel, Blood, Routine collect, 12/05/22, Order for future visit, Lab Collect, Anemia, Print Label By Order Location\.br\ Ferritin, Blood, Routine collect, 12/05/22, Order for future visit, Lab Collect, Anemia, Print Label By Order Location\.br\ Folate Level, Blood, Routine collect, 12/05/22, Order for future visit, Lab Collect, Anemia, Print Label By Order Location\.br\ Iron Level, Blood, Routine collect, 12/05/22, Order for future visit, Lab Collect, Anemia, Print Label By Order Location\.br\ Iron Percent Saturation, Blood, Routine collect, 12/05/22, Order for future visit, Lab Collect, Anemia, Print Label By Order Location\.br\ TIBC Calculated, Blood, Routine collect, 12/05/22, Order for future visit, Lab Collect, Anemia, Print Label By Order Location\.br\ Transferrin, Blood, Routine collect, 12/05/22, Order for future visit, Lab Collect, Anemia, Print Label By Order Location\.br\ Medications\.br\ What How Much When Why Instructions\.br\ New pantoprazole (Pantoprazole [address] Tab) 1 Tablets By Mouth Every day Acid reflux Duration: 90 Days Pickup at [facility]/pharmacy #[id number]\.br\ Unchanged albuterol (ProAir RespiClick 90 mcg/ inh inhalation powder) 2 Puffs Inhalation Every 4 hours as needed for for wheezing or SOB Contact prescribing physician if questions or concerns \.br\ Unchanged albuterol-ipratro pium (DuoNeb 2.5 mg-0.5 mg/ 3 mL Soln-Inh) 3 Milliliter Nebulized inhalation (aerosol) 6 times a day Contact prescribing physician if questions or concerns \.br\ Unchanged celecoxib (celecoxib 200 mg Cap) 1 Capsules By Mouth 2 times a day Contact prescribing physician if questions or concerns \.br\ Unchanged cyclobenzaprine (cyclobenzaprine 10 mg Tab) 1 Tablets By Mouth 3 times a day as needed for for spasm prn back pain Contact prescribing physician if questions or concerns \.br\ Unchanged denosumab (Prolia) 60 Milligram Subcutaneous Every 6 months Contact prescribing physician if questions or concerns \.br\ Unchanged fluticasone nasal (Flonase 0.05 mg/ inh nasal spray) 2 Sprays Nasal Inhalation Every day Contact prescribing physician if questions or concerns \.br\ Unchanged fluticasone-salme terol (Advair Diskus 250 mcg-50 mcg inhalation powder) See instructions one puff inhales in the morning and night Contact prescribing physician if questions or concerns \.br\ Unchanged levothyroxine (levothyroxine 137 mcg (0.137 mg) Tab) 1 Tablets By Mouth Every day Contact prescribing physician if questions or concerns \.br\ Unchanged montelukast (montelukast 10 mg Tab) See instructions TAKE 1 TABLET BY MOUTH TWICE A DAY Contact prescribing physician if questions or concerns \.br\ Unchanged ondansetron (Zofran 4 mg Tab) 1 Tablets By Mouth Every 6 hours Contact prescribing physician if questions or concerns \.br\ Unchanged semaglutide (Ozempic (1 mg dose)) 1 Milligram Subcutaneous Every week Ordered by another provider. Contact prescribing physician if questions or concerns \.br\ Unchanged upadacitinib (Rinvoq 15 mg oral tablet, extended release) Contact prescribing physician if questions or concerns \.br\ Pharmacy Information\.br\ [id number]: [address], [place] [id number] [phone]\.br\ \.br\ What How Much When Comments\.br\ Stop Taking omeprazole (omeprazole 40 mg Cap-DR) 1 Capsules By Mouth Every day\.br\ Allergies\.br\ Cefzil (Unknown)\.br\ Eliquis (Unknown)\.br\ Keflex (Hives)\.br\ Pradaxa (Unknown)\.br\ penicillin G benzathine (Hives)\.br\ Problems\.br\ Ongoing - Any problem that you are currently receiving treatment for.\.br\ Acid reflux\.br\ Allergic rhinitis\.br\ Anemia\.br\ Annual physical exam\.br\ BMI 40.0-44.9, adult\.br\ Chronic peripheral venous hypertension with lower extremity complication\.br\ Chronic sinusitis\.br\ Colitis\.br\ Derangement of knee\.br\ Diverticular disease\.br\ Esophageal web\.br\ Hemorrhoids\.br\ Hx of pulmonary embolus\.br\ Hypothyroid\.br\ Hypoxemia\.br\ Moderate asthma without complication\.br\ Non-insulin dependent type 2 diabetes mellitus\.br\ Obesity due to excess calories\.br\ Oral thrush\.br\ Pulmonary embolism with acute cor pulmonale\.br\ Rheumatoid arthritis involving multiple sites with positive rheumatoid factor\.br\ Viral gastritis\.br\ Weight loss, unintentional\.br \ Historical - Any problem that you are no longer receiving treatment for.\.br\ Arthritis\.br\ Asthma\.br\ Change in bowel habits\.br\ COVID-19\.br\ Dysphagia\.br\ Loose stools\.br\ Nausea\.br\ Education Materials\.br\ Food Choices for Gastroesophageal Reflux Disease, Adult\.br\ When you have gastroesophageal reflux disease (GERD), the foods you eat and your eating habits are very important. Choosing the right foods can help ease the discomfort of GERD. Consider working with a dietitian to help you make healthy food choices.\.br\ What are tips for following this plan?\.br\ Reading food labels\.br\ ? \.br\ Look for foods that are low in saturated fat. Foods that have less than 5% of daily value (DV) of fat and 0 g of trans fats may help with your symptoms.\.br\ Cooking\.br\ ? \.br\ Cook foods using methods other than frying. This may include baking, steaming, grilling, or broiling. These are all methods that do not need a lot of fat for cooking.\.br\ ? \.br\ To add flavor, try to use herbs that are low in spice and acidity.\.br\ Meal planning\.br\ \.br\ ? \.br\ Choose healthy foods that are low in fat, such as fruits, vegetables, whole grains, low-fat dairy products, lean meats, fish, and poultry.\.br\ ? \.br\ Eat frequent, small meals instead of three large meals each day. Eat your meals slowly, in a relaxed setting. Avoid bending over or lying down until 2?3 hours after eating.\.br\ ? \.br\ Limit high-fat foods such as fatty meats or fried foods.\.br\ ? \.br\ Limit your intake of fatty foods, such as oils, butter, and shortening.\.br\ ? \.br\ Avoid the following as told by your health care provider:\.br\ ? \.br\ Foods that cause symptoms. These may be different for different people. Keep a food diary to keep track of foods that cause symptoms.\.br\ ? \.br\ Alcohol.\.br\ ? \.br\ Drinking large amounts of liquid with meals.\.br\ ? \.br\ Eating meals during the 2?3 hours before bed.\.br\ Lifestyle\.br\ ? \.br\ Maintain a healthy weight. Ask your health care provider what weight is healthy for you. If you need to lose weight, work with your health care provider to do so safely.\.br\ ? \.br\ Exercise for at least 30 minutes on 5 or more days each week, or as told by your health care provider.\.br\ ? \.br\ Avoid wearing clothes that fit tightly around your waist and chest.\.br\ ? \.br\ Do not use any products that contain nicotine or tobacco. These products include cigarettes, chewing tobacco, and vaping devices, such as e-cigarettes. If you need help quitting, ask your health care provider.\.br\ ? \.br\ Sleep with the head of your bed raised. Use a wedge under the mattress or blocks under the bed frame to raise the head of the bed.\.br\ ? \.br\ Chew sugar-free gum after mealtimes.\.br\ What foods should I eat?\.br\ \.br\ Eat a healthy, well-balanced diet of fruits, vegetables, whole grains, low-fat dairy products, lean meats, fish, and poultry. Each person is different. Foods that may trig [facility] CHEMISTRYOrdered By: SYSTEM SYSTEM on 12-05-2022 Albumin [Mass/Vol] 4.0 g/dL Normal 3.3 - 5.0 gm/dL [facility] Remisol Albumin/Globulin [Mass ratio] 1.4 {ratio} Normal 1.1 - 2.2 [facility] Remisol ALP [Catalytic activity/Vol] 48 [iU]/d Normal 21 - 98 Int._Unit/L [facility] Remisol ALT No additional P-5'-P [Catalytic activity/Vol] 19 [iU]/d Normal 6 - 46 Int._Unit/L [facility] Remisol Anion gap [Moles/Vol] 9 mmol/L Normal 6 - 16 mEq/L [facility] Remisol AST [Catalytic activity/Vol] 25 [iU]/d Normal 5 - 43 Int._Unit/L [facility] Remisol Bilirubin [Mass/Vol] 0.6 mg/dL Normal 0.0 - 1.1 mg/dL [facility] Remisol Calcium [Mass/Vol] 8.9 mg/dL Normal 8.9 - 11.1 mg/dL [facility] Remisol Chloride [Moles/Vol] 105 mmol/L Normal 101 - 111 mmol/L [facility] Remisol CO2 [Moles/Vol] 29 mmol/L Normal 21 - 31 mmol/L [facility] Remisol Creatinine [Mass/Vol] 0.6 mg/dL Normal 0.5 - 1.3 mg/dL [facility] Remisol Ferritin [Mass/Vol] 17 ng/mL Normal 11 - 307 ng/mL [facility] Remisol Folate [Mass/Vol] ng/mL Normal >=6.7ng/mL [facility] Re misol GFR/1.73 sq M.predicted among non-blacks MDRD (S/P/Bld) [Vol rate/Area] 101 mL/min/1.73 m2 Normal >=59mL/min/1.73 m2 [facility] Chem S Globulin (S) [Mass/Vol] 2.9 g/dL Normal 1.4 - 4.0 gm/dL [facility] Remisol Glucose [Mass/Vol] 79 mg/dL Normal 55 - 199 mg/dL [facility] Remisol Iron [Mass/Vol] 98 ug/dL Normal 35 - 153 mcg/dL [facility] Remisol Iron binding capacity [Mass/Vol] 492 ug/dL High 250 - 400 mcg/dL [facility] Remiso l Iron saturation [Mass fraction] 20 % Normal 20 - 50 % [facility] Remisol Potassium [Moles/Vol] 4.0 mmol/L Normal 3.5 - 5.3 mmol/L [facility] Remisol Protein [Mass/Vol] 6.9 g/dL Normal 6.0 - 7.8 gm/dL [facility] Remisol Sodium [Moles/Vol] 139 mmol/L Normal 135 - 145 mmol/L [facility] Remisol Transferrin [Mass/Vol] 351 mg/dL Normal 200 - 370 mg/dL [facility] Remisol Urea nitrogen [Mass/Vol] 19 mg/dL Normal 5 - 21 mg/dL [facility] Remisol Urea nitrogen/Creatinine [Mass ratio] 32 mg/mg High 10 - 20 [facility] Remisol CMPon 12-05-2022 Albumin [Mass/Vol] 4.0 g/dL Normal 3.3-5.0 [facility] Comment on above: Performed By: #### 2 055036, 8367812, 3860361, 7631510, 0807316, 01691514, 9884658 ####[facility] [address] [place] [address] Albumin/Globulin (S) [Mass conc ratio] 1.4 Normal 1.1-2.2 [facility] Comment on above: Performed By: #### 2 842679, 5998345, 1589434, 8337774, 3773658, 24701679, 8054649 ####[facility] [address] [place] [address] ALP [Catalytic activity/Vol] 48 Int._Unit/L Normal 21-98 [facility] Comment on above: Performed By: #### 2 830066, 2146646, 1475847, 8261465, 0818670, 25280804, 5187976 ####[facility] [address] [place] [address] ALT No additional P-5'-P [Catalytic activity/Vol] 19 Int._Unit/L Normal 6-46 [facility] Comment on above: Performed By: #### 2 237747, 2598600, 7358369, 6311649, 8444438, 32214925, 8587388 ####[address] [address] Anion gap [Moles/Vol] 9 mmol/L Normal 6-16 [facility] Comment on above: Performed By: #### 2 861106, 5387448, 4995682, 1651536, 4106822, 14645619, 9726609 ####[address] [address] AST [Catalytic activity/Vol] 25 Int._Unit/L Normal 5-43 [facility] Comment on above: Performed By: #### 2 451997, 3623470, 3293196, 0286288, 8940255, 26171012, 7654888 ####[facility] [address] [place] [address] Bilirubin [Mass/Vol] 0.6 mg/dL Normal 0.0-1.1 [facility] Comment on above: Performed By: #### 2 285174, 6396789, 2221941, 3525059, 9333337, 93250128, 4402318 ####[facility] [address] [place] [address] Calcium [Mass/Vol] 8.9 mg/dL Normal 8.9-11.1 [facility] Comment on above: Performed By: #### 2 991973, 8167954, 1987552, 7223108, 2089102, 89015481, 2944941 ####[facility] [address] [place] [address] Chloride [Moles/Vol] 105 mmol/L Normal 101-111 [facility] Comment on above: Performed By: #### 2 735398, 1752129, 9153011, 2586117, 3739090, 75906358, 6421472 ####[facility] [address] [place] [address] CO2 [Moles/Vol] 29 mmol/L Normal 21-31 [facility] Comment on above: Performed By: #### 2 387231, 4537589, 5751833, 3583948, 5227008, 70973791, 5534151 ####[facility] [address] [place] [address] Creatinine [Mass/Vol] 0.6 mg/dL Normal 0.5-1.3 [facility] Comment on above: Performed By: #### 2 941953, 0284556, 8195149, 6620295, 8114143, 52141561, 1249395 ####[facility] [address] [place] [address] Globulin (S) [Mass/Vol] 2.9 g/dL Normal 1.4-4.0 [facility] Comment on above: Performed By: #### 2 955375, 6660595, 0733163, 5641960, 7611550, 19236187, 7105789 ####[facility] [address] [place] [address] Glucose [Mass/Vol] 79 mg/dL Normal 55-199 [facility] Comment on above: Result Comment: If t his glucose result represents a fasting glucose, interpretation should refer to the following reference range: 55-99 mg/dL Performed By: #### 2 140439, 3233047, 1767698, 4452148, 0907674, 08811531, 0907511 ####[facility] [address] [place] [address] Potassium [Moles/Vol] 4.0 mmol/L Normal 3.5-5.3 [facility] Comment on above: Performed By: #### 2 036224, 6702941, 4986853, 4897276, 5384801, 16849827, 2259728 ####[facility] [address] [place] [address] Protein [Mass/Vol] 6.9 g/dL Normal 6.0-7.8 [facility] Comment on above: Performed By: #### 2 388956, 9914819, 8823511, 8387056, 2360718, 31842435, 1256693 ####[facility] [address] [place] [address] Sodium [Moles/Vol] 139 mmol/L Normal 135-145 [facility] Comment on above: Performed By: #### 2 643441, 7645221, 4356732, 9819441, 8197868, 13157679, 8807908 ####[facility] [address] [place] [address] Urea nitrogen [Mass/Vol] 19 mg/dL Normal 5-21 [facility] Comment on above: Performed By: #### 2 182466, 8668483, 8331573, 2557351, 0157494, 09893421, 4211731 ####[facility] [address] [place] [address] Urea nitrogen/Creatinine [Mass ratio] 32 No Units High 10-20 [facility] Comment on above: Performed By: #### 2 160565, 3036113, 8003288, 6986748, 0587868, 08713766, 6620680 ####[facility] [address] [place] [address] Consent for Treatmenton 06-0 Consent for Treatment [id number] Normal [facility] Ferritinon 12-05-2022 Ferritin [Mass/Vol] 17 ng/mL Normal 11-307 [facility] Comment on above: Result Comment: NORM ALS MEN <30 YRS 16-132 ng/mL MEN >30 YRS 8-338 ng/mL WOMEN (PREMEN) 6-104 ng/mL WOMEN (POSTMEN) 12-210 ng/mL Performed By: #### 2 014575, 8046800, 3817783, 8035391, 9483563, 24590101, 3062198 ####[facility] [address] [place] [address] Folateon 12-05-2022 Folate [Mass/Vol] ng/mL Normal >=6.7 [facility] Comment on above: Performed By: #### 2 775418, 9302970, 8761675, 0107450, 0811485, 21830135, 5291276 ####[facility] [address] [place] [address] Gastroenterology Office/Clin ic Noteon 12-05-2022 Gastroenterology Office/Clinic Note Chief Complaint Followup from 05/11/22 and inpatient. HPI Staff This is a 62 year old female who presents today for a sick call for complaints of nausea. Patient was in the hospital recently for diarrhea and nausea. Nausea and diarrhea have resolved. Last visit 05/11/22 and last EGD 05/21/22. History of Present Illness Patient is a 62-year-old female who presents for follow-up. Patient was previously evaluated 05/2022. PMH of Hypothyroidism, Asthma- managed by patient's PCP. Patient was previously evaluated at outside facility?[facility] 11/20/2022 and note indicated patient with vomiting and watery diarrhea. Patient had CT abdomen pelvis that showed possible distal colitis. Note from Dr. Loya who evaluated patient indicated patient was discharged with Levaquin/Flagyl?was diagnosed with gastroenteritis and abnormal liver enzymes. Patient was evaluated by her PCP?Dr. Benavides 11/22/2022 and note indicated patient was advised to continue Levaquin and Flagyl. Previous labs 05/2021 that revealed hemoglobin slightly low 11.5, RBC low at 3.9, hematocrit low at 34.6, RDW elevated at 15.2, previous labs 05/2021 revealed elevated BUN of 22, elevated BUN/creatinine ratio 31?patient to follow-up with PCP regarding. Most recent labs 08/2022 showed improved hemoglobin of 11.3, was previously 11.1, normal hematocrit, elevated RDW of 15.5, elevated BUN?patient to follow-up with PCP regarding, normal creatinine, normal liver enzymes, low protein of 5.8. Is following with hematology regarding anemia. Patient with PMH of DM, type 2 and follows with endocrinology regarding. Patient had previous EGD 05/2021 revealed proximal esophageal web?dilated, moderate chronic gastric erythema, normal duodenum, gastric body biopsy with mild chronic inflammation, negative for H. pylori. Previous colonoscopy 05/2021 revealed normal terminal ileum, normal colonic mucosa, hemorrhoids, diverticulosis, random colon biopsy was normal and was recommended to have repeat colonoscopy in 2030. Patient had previously reported having loose stools 08/2021 and had positive fecal WBC lactoferrin?was treated previously with Flagyl/Alighn. Stool testing completed negative for Campylobacter, Salmonella, Shigella, Shiga toxin, Vibrio, Rotavirus, Norovirus, Yersinia enterocolitica, and stool testing for C. difficile unable to be completed per lab in relation to stool consistency. During previous visit, patient had indicated after she had COVID-19 03/2022 that she was having difficulty swallowing. Reported difficulty swallowing foods and pills that occurred 2-3 times in the last month prior. She indicated food and pills were getting stuck in her esophagus and last EGD with dilation had resolved her difficulty swallowing. She reported feeling like acid was coming up during the night 1-2 times over the last month. Is currently taking omeprazole 40 mg daily. She also previously reported she was not taking Pepcid at bedtime as previously instructed. She was taking 2 tablespoons of fiber daily and having 1 formed bowel movement daily. Patient reported during previous evaluation 09/2021 that her stool consistency had improved with Metamucil fiber and treatment with Flagyl previously. Patient was ordered EGD with possible dilation and educated to start Pepcid 20 mg at bedtime. EGD with dilation completed 05/21/[address] Berger revealed proximal esophageal web?dilated. During today's visit, patient reports she is feeling better. Was having occasional nausea 2 weeks ago. Patient reports she is no longer having any nausea/vomiting in the last week. Explains she is currently having 1 formed BM daily. Is no longer having loose/watery stools. She explains she is having no difficulty swallowing since EGD with dilation. Patient reports acid reflux is partially controlled with omeprazole 40mg daily and pepcid 20mg at bedtime. Has acid reflux at night on occasion. Has been on omeprazole for years. Denies abdominal pain, fevers/chills, dysphagia, and denies having any other GI complaints. Review of Systems PHQ Score Initial Depression Screen Score: 0 ROS - Provider Constitutional: no fever, no chills. Skin: no Jaundice. ENMT: Denies dysphagia. Yes acid reflux occasionally at night. Respiratory: no shortness of breath. Cardiovascular: no chest pain. Gastrointestinal: no nausea, no vomiting, no diarrhea, no GI bleeding. Physical Exam Vitals & Measurements T: 36.7 ?C(Temporal Artery) HR: 81(Peripheral) BP: 126/82 HT: 56 in HT: 143.2 cm WT: 85.3 kg WT: 187.66 lb BMI: 41.6 General: Well developed, well nourished, in no acute distress Head: Normocephalic/atrauma tic Lungs: Normal respiratory effort and clear to auscultation Cardio: Regular rate and rhythm, normal S1 and S2, no murmur, no rub Abdomen: Soft, non-distended, non-tender. Normoactive bowel sounds present in all 4 abdominal quadrants, bilaterally. Mental Status: Alert and oriented x3. Normal mood and affect Assessment/Plan 1. Esophageal web (Q3 (more content not included)... Normal [facility] Comment on above: Result Comment: Elec tronically Signed By: Teodora Ott CNP\.br\Date and Time Signed: 12/05/22 15:56 EDT Ironon 12-05-2022 Iron [Mass/Vol] 98 microgram/dL Normal 35-153 [facility] Comment on above: Performed By: #### 2 458653, 1600764, 3515738, 7883540, 7718880, 69193029, 7809689 ####[facility] [place] [address] Iron Saturationon 12-05-2022 Iron binding capacity [Mass/Vol] 492 microgram/dL High 250-400 [facility] Comment on above: Performed By: #### 2 196033, 0093965, 6112008, 0421477, 1679550, 28976230, 7833561 ####[facility] [address] [place] [address] Iron saturation [Mass fraction] 20 % Normal 20-50 [facility] Comment on above: Performed By: #### 2 706073, 5921856, 6415936, 5109775, 6711831, 41455283, 2367655 ####[facility] [address] [place] [address] Patient Educationon 12-06-19 Patient Education Gastroenterology Food Choices for Gastroesophageal Reflux Disease, Adult When you have gastroesophageal reflux disease (GERD), the foods you eat and your eating habits are very important. Choosing the right foods can help ease the discomfort of GERD. Consider working with a dietitian to help you make healthy food choices. What are tips for following this plan? Reading food labels ? Look for foods that are low in saturated fat. Foods that have less than 5% of daily value (DV) of fat and 0 g of trans fats may help with your symptoms. Cooking ? Cook foods using methods other than frying. This may include baking, steaming, grilling, or broiling. These are all methods that do not need a lot of fat for cooking. ? To add flavor, try to use herbs that are low in spice and acidity. Meal planning ? Choose healthy foods that are low in fat, such as fruits, vegetables, whole grains, low-fat dairy products, lean meats, fish, and poultry. ? Eat frequent, small meals instead of three large meals each day. Eat your meals slowly, in a relaxed setting. Avoid bending over or lying down until 2?3 hours after eating. ? Limit high-fat foods such as fatty meats or fried foods. ? Limit your intake of fatty foods, such as oils, butter, and shortening. ? Avoid the following as told by your health care provider: ? Foods that cause symptoms. These may be different for different people. Keep a food diary to keep track of foods that cause symptoms. ? Alcohol. ? Drinking large amounts of liquid with meals. ? Eating meals during the 2?3 hours before bed. Lifestyle ? Maintain a healthy weight. Ask your health care provider what weight is healthy for you. If you need to lose weight, work with your health care provider to do so safely. ? Exercise for at least 30 minutes on 5 or more days each week, or as told by your health care provider. ? Avoid wearing clothes that fit tightly around your waist and chest. ? Do not use any products that contain nicotine or tobacco. These products include cigarettes, chewing tobacco, and vaping devices, such as e-cigarettes. If you need help quitting, ask your health care provider. ? Sleep with the head of your bed raised. Use a wedge under the mattress or blocks under the bed frame to raise the head of the bed. ? Chew sugar-free gum after mealtimes. What foods should I eat? Eat a healthy, well-balanced diet of fruits, vegetables, whole grains, low-fat dairy products, lean meats, fish, and poultry. Each person is different. Foods that may trigger symptoms in one person may not trigger any symptoms in another person. Work with your health care provider to identify foods that are safe for you. The items listed above may not be a complete list of recommended foods and beverages. Contact a dietitian for more information. What foods should I avoid? Limiting some of these foods may help manage the symptoms of GERD. Everyone is different. Consult a dietitian or your health care provider to help you identify the exact foods to avoid, if any. Fruits Any fruits prepared with added fat. Any fruits that cause symptoms. For some people this may include citrus fruits, such as oranges, grapefruit, pineapple, and fawn. Vegetables Deep-fried vegetables. [place] Citizen fries. Any vegetables prepared with added fat. Any vegetables that cause symptoms. For some people, this may include tomatoes and tomato products, chili peppers, onions and garlic, and horseradish. Grains Pastries or quick breads with added fat. Meats and other proteins High-fat meats, such as fatty beef or pork, hot dogs, ribs, ham, sausage, salami, and ruiz. Fried meat or protein, including fried fish and fried chicken. Nuts and nut butters, in large amounts. Dairy Whole milk and chocolate milk. Sour cream. Cream. Ice cream. Cream cheese. Milkshakes. Fats and oils Butter. Margarine. Shortening. Ghee. Beverages Coffee and tea, with or without caffeine. Carbonated beverages. Sodas. Energy drinks. Fruit juice made with acidic fruits, such as orange or grapefruit. Tomato juice. Alcoholic drinks. Sweets and desserts Chocolate and cocoa. Donuts. Seasonings and condiments Pepper. Peppermint and spearmint. Added salt. Any condiments, herbs, or seasonings that cause symptoms. For some people, this may include fox, hot sauce, or vinegar-based salad dressings. The items listed above may not be a complete list of foods and beverages to avoid. Contact a dietitian for more information. Questions to ask your health care provider Diet and lifestyle changes are usually the first steps that are taken to manage symptoms of GERD. If diet and lifestyle changes do not improve your symptoms, talk with your health care provider about taking medicines. Where to find more information ? [employer]intestinal [employer]: aboutgerd.org Summary ? When you have gastroesophageal reflux di (more content not included)... Normal [facility] Transferrinon 12-05-2022 Transferrin [Mass/Vol] 351 mg/dL Normal 200-370 [facility] Comment on above: Performed By: #### 2 061004, 6656391, 8144472, 8998847, 6835024, 17388797, 5437960 ####[facility] [address] [place] [address] eGFRon 12-05-2022 GFR/1.73 sq M.predicted among non-blacks MDRD (S/P/Bld) [Vol rate/Area] 101 mL/min/1.73 m2 Normal >=59 [facility] Comment on above: Order Comment: Order added by Discern Expert. Result Comment: [employer]ault [employer]ier hilda kidney disease could be indicated at eGFR's of less than 60 mL/min/1.73m2. Kidney failure is indicated at less than 15 mL/min/1.73m2. Performed By: #### 2 020925, 1102973, 3714095, 8842343, 4642278, 39995876, 5774694 ####[facility] [address] [place] [address] Family Medicine Office/Clini c Noteon 11-27-2022 Family Medicine Office/Clinic Note Chief Complaint [facility] hospital follow up HPI Staff [facility] hospital follow up Gastroenteritis Admit Date: 11/19/22 [facility] Date of Discharge: 11/20/22 Discharge meds Levaquin 750 mg daily x 6 days, Flagyl TID x 6 days, Zofran 4 mg q6 hr prn questions/concerns: still having some nausea and vomited some yesterday heart rate is high for her. was told could be from covid ( had it in [place]) Reviewed TCM calls, med rec and D/C summary History of Present Illness Carolina Gomez is a 62-year-old female who presents today for a hospital follow-up. She reports she is still experiencing severe nausea. She was started on Ozempic by Dr. Higgins in [place] for her diabetes 2 years ago. She denies a recent increase in her Ozempic dose. She states she was seen in the ER for diarrhea, syncope episode, and vomiting. Her blood pressure in the ER was 80/60 mmHg. She had an episode of vomiting last night. She reports that she was told that her heart rate is elevated. She notes she notices this when she walks. She had COVID-19 in 03/2022. Review of Systems PHQ Score Initial Depression Screen Score: 1 Physical Exam Vitals & Measurements HR: 84(Peripheral) RR: 16 BP: 126/78 SpO2: 96% HT: 56 in HT: 143.2 cm WT: 90.25 kg WT: 198.55 lb BMI: 44.01 General: alert, no acute distress Cardiovascular: regular rate and rhythm, normal peripheral perfusion Respiratory: Lungs CTA, respirations non labored Extremities: no deformity, no trauma Neurological: oriented x 4, LOC appropriate for age, CN II-XII intact, motor strength equal & normal bilaterally, speech normal Abdomen: soft, nontender, nondistended. Assessment/Plan 1. Colitis (K52.9: Noninfective gastroenteritis and colitis, unspecified) Patient will continue on the Levaquin and the Flagyl. Continue on the Zofran as needed. We will continue to monitor to make sure the patient is improved. Patient will call us next week if there is no improvement. 2. Diverticular disease (K57.90: Diverticulosis of intestine, part unspecified, without perforation or abscess without bleeding) As above. 3. Viral gastritis (K29.70: Gastritis, unspecified, without bleeding) Patient seems to be getting better slowly. Discussed how there is viral gastroenteritis going around at the patient's place of work. We will follow up in 1 week if needed. Otherwise, patient will follow up in 1 month. ATTESTATION: Documentation services were performed after patient or guardian consented to allow Kami Stern to record this visit. MARITO polymer specialist and provider reviewed before signing. MARITO: Jesse Hansen Follow-up No qualifying data available Problem List/Past Medical History Ongoing Allergic rhinitis Anemia Annual physical exam BMI 40.0-44.9, adult Chronic peripheral venous hypertension with lower extremity complication Chronic sinusitis Colitis Derangement of knee Diverticular disease Dysphagia Esophageal web Hemorrhoids Hx of pulmonary embolus Hypothyroid Hypoxemia Moderate asthma without complication Non-insulin dependent type 2 diabetes mellitus Obesity due to excess calories Oral thrush Pulmonary embolism with acute cor pulmonale Rheumatoid arthritis involving multiple sites with positive rheumatoid factor Viral gastritis Weight loss, unintentional Historical Acid reflux Arthritis Asthma Change in bowel habits COVID-19 Loose stools Nausea Procedure/Surgical History EGD (esophagogastroduoden oscopy) gastric outlet reduction (05/21/2022), Colonoscopy (05/09/2021), EGD - Esophagogastroduodeno scopy (05/09/2021), Cataract extraction, Cholecystectomy, Foot repair, Hysterectomy, Knee replacement, Tonsillectomy and adenoidectomy; age 11 or over. Medications Advair Diskus 250 mcg-50 mcg inhalation powder, See Instructions, 1 refills celecoxib 200 mg Cap, 200 mg= 1 cap(s), Oral, BID cyclobenzaprine 10 mg Tab, 10 mg= 1 tab(s), Oral, TID, PRN DuoNeb 2.5 mg-0.5 mg/3 mL Soln-Inh, 3 mL, NEB, 6x/Day, 1 refills Flonase 0.05 mg/inh nasal spray, 2 spray(s), Nasal, Daily levothyroxine 137 mcg (0.137 mg) Tab, 137 mcg= 1 tab(s), Oral, Daily montelukast 10 mg Tab, See Instructions omeprazole 40 mg Cap-DR, 40 mg= 1 cap(s), Oral, Daily Ozempic (1 mg dose), 1 mg, SubCutaneous, qWeek ProAir RespiClick 90 mcg/inh inhalation powder, 2 puff(s), Inhalation, q4hr, PRN, 11 refills Prolia, 60 mg, SubCutaneous, q6mo Zofran 4 mg Tab, 4 mg= 1 tab(s), Oral, q6hr Allergies Cefzil (Unknown) Eliquis (Unknown) Keflex (Hives) Pradaxa (Unknown) penicillin G benzathine (Hives) Social History Alcohol - Denies Alcohol Use, 10/26/2019 Current, Beer, Wine, 1-2 times per year, 05/22/2022 Employment/School - Low Risk, 05/22/2022 Exercise - Does not exercise, 05/22/2022 Home/Environment - Low Risk, 05/22/2022 Nutrition/Health - Low Risk, 05/22/2022 Sexual - No Risk, 05/22/2022 Substance Abuse - Denies Substance Abuse, 10/26/2019 Tobacco - Denies Tob (more content not included)... Normal [facility] Comment on above: Result Comment: Elec tronically Signed By: Silvestre Benavides MD\.br\Date and Time Signed: 11/27/22 15:07 EDT\.br\Electronically Co-Signed By: Jesse Hansen\.br\Date and Time Co-Signed: 11/22/22 14:28 EDT Ambulatory Visit Summaryon 0 11-22-2022 Ambulatory Visit Summary CAROLINA GOMEZ :1960 Visit Date:11/22/2022 Ambulatory Visit Instructions Your Diagnosis Colitis Diverticular disease Viral gastritis Your Care Team Attending Physician - Silvestre Benavides MD Primary Care Physician - ZIYAD HDZ, ALINE Conner This Is Your Medications List albuterol (ProAir RespiClick 90 mcg/inh inhalation powder) albuterol-ipratropium (DuoNeb 2.5 mg-0.5 mg/3 mL Soln-Inh) celecoxib (celecoxib 200 mg Cap) cyclobenzaprine (cyclobenzaprine 10 mg Tab) denosumab (Prolia) fluticasone nasal (Flonase 0.05 mg/inh nasal spray) fluticasone-salmetero l (Advair Diskus 250 mcg-50 mcg inhalation powder) levothyroxine (levothyroxine 137 mcg (0.137 mg) Tab) montelukast (montelukast 10 mg Tab) omeprazole (omeprazole 40 mg Cap-DR) ondansetron (Zofran 4 mg Tab) semaglutide (Ozempic (1 mg dose)) Procedures Performed EGD (esophagogastroduoden oscopy) gastric outlet reduction (05/21/2022), Colonoscopy (05/09/2021), EGD - Esophagogastroduodeno scopy (05/09/2021), Cataract extraction, Cholecystectomy, Foot repair, Hysterectomy, Knee replacement, Tonsillectomy and adenoidectomy; age 11 or over. Discharge Vitals Heart Rate (Peripheral) 84 Respiratory Rate 16 Blood Pressure 126/78 Height 143.2 cm Height 56 in Weight 90.25 kg Weight 198.55 lb BMI 44.01 What to do next Scheduled Follow-Up Appointments Saturday 3:45 PM EDT With: Haim Do DO Where: Oncology 2022 8:20 AM EDT With: Where: [place] [id number] \.br\ Medications\.br\ What How Much When Instructions\.br\ Unchanged albuterol (ProAir RespiClick 90 mcg/ inh inhalation powder) 2 Puffs Inhalation Every 4 hours as needed for for wheezing or SOB\.br\ Unchanged albuterol-ipratro pium (DuoNeb 2.5 mg-0.5 mg/ 3 mL Soln-Inh) 3 Milliliter Nebulized inhalation (aerosol) 6 times a day\.br\ Unchanged celecoxib (celecoxib 200 mg Cap) 1 Capsules By Mouth 2 times a day\.br\ Unchanged cyclobenzaprine (cyclobenzaprine 10 mg Tab) 1 Tablets By Mouth 3 times a day as needed for for spasm prn back pain \.br\ Unchanged denosumab (Prolia) 60 Milligram Subcutaneous Every 6 months\.br\ Unchanged fluticasone nasal (Flonase 0.05 mg/ inh nasal spray) 2 Sprays Nasal Inhalation Every day\.br\ Unchanged fluticasone-salme terol (Advair Diskus 250 mcg-50 mcg inhalation powder) See instructions one puff inhales in the morning and night \.br\ Unchanged levothyroxine (levothyroxine 137 mcg (0.137 mg) Tab) 1 Tablets By Mouth Every day\.br\ Unchanged montelukast (montelukast 10 mg Tab) See instructions TAKE 1 TABLET BY MOUTH TWICE A DAY \.br\ Unchanged omeprazole (omeprazole 40 mg Cap-DR) 1 Capsules By Mouth Every day\.br\ Unchanged ondansetron (Zofran 4 mg Tab) 1 Tablets By Mouth Every 6 hours\.br\ Unchanged semaglutide (Ozempic (1 mg dose)) 1 Milligram Subcutaneous Every week Ordered by another provider. \.br\ Allergies\.br\ Cefzil (Unknown)\.br\ Eliquis (Unknown)\.br\ Keflex (Hives)\.br\ Pradaxa (Unknown)\.br\ penicillin G benzathine (Hives)\.br\ Problems\.br\ Ongoing - Any problem that you are currently receiving treatment for.\.br\ Allergic rhinitis\.br\ Anemia\.br\ Annual physical exam\.br\ BMI 40.0-44.9, adult\.br\ Chronic peripheral venous hypertension with lower extremity complication\.br\ Chronic sinusitis\.br\ Colitis\.br\ Derangement of knee\.br\ Diverticular disease\.br\ Dysphagia\.br\ Esophageal web\.br\ Hemorrhoids\.br\ Hx of pulmonary embolus\.br\ Hypothyroid\.br\ Hypoxemia\.br\ Moderate asthma without complication\.br\ Non-insulin dependent type 2 diabetes mellitus\.br\ Obesity due to excess calories\.br\ Oral thrush\.br\ Pulmonary embolism with acute cor pulmonale\.br\ Rheumatoid arthritis involving multiple sites with positive rheumatoid factor\.br\ Viral gastritis\.br\ Weight loss, unintentional\.br \ Historical - Any problem that you are no longer receiving treatment for.\.br\ Acid reflux\.br\ Arthritis\.br\ Asthma\.br\ Change in bowel habits\.br\ COVID-19\.br\ Loose stools\.br\ Nausea\.br\ \.br\ [facility] Provider Letteron 11-22-2022 Provider Letter November 22, 2022 CAROLINA GOMEZ [id number] [address] : 1960 To Whom It May Concern, Please excuse above patient from work. Date of Illness: From: 11/19/2022 To: 11/21/2022 May Return to Work On: 11/22/2022 Restrictions: _ Comments: _ Sincerely, Family Medicine [address] [address] [facility] Outside [facility] Correspo ndenceon 11-21-2022 Outside [facility] Correspondence [id number] [facility] Population Health 11-22-19 [facility] Health Case Information Case Priority: None Programs: -- Referral Source: Motorboat Mechanic Referral Reason: Care coordination Case Type: Transition Care Management Risk Score: -- Case Status: Enrolled (November 21, 2022) Date Assigned: November 21, 2022 Assigned By: Hien Mo RN Date Enrolled: November 21, 2022 Assigned Primary Personnel: Hien Mo RN Assigned Secondary Personnel: -- Case Physician: Silvestre Benavides MD Ongoing Allergic rhinitis Anemia Annual physical exam BMI 40.0-44.9, adult Chronic peripheral venous hypertension with lower extremity complication Chronic sinusitis Derangement of knee Diverticular disease Dysphagia Esophageal web Hemorrhoids Hx of pulmonary embolus Hypothyroid Hypoxemia Moderate asthma without complication Non-insulin dependent type 2 diabetes mellitus Obesity due to excess calories Oral thrush Pulmonary embolism with acute cor pulmonale Rheumatoid arthritis involving multiple sites with positive rheumatoid factor Weight loss, unintentional Historical Acid reflux Arthritis Asthma Change in bowel habits COVID-19 Loose stools Nausea Procedure/Surgical History EGD (esophagogastroduoden oscopy) gastric outlet reduction (05/21/2022), Colonoscopy (05/09/2021), EGD - Esophagogastroduodeno scopy (05/09/2021), Cataract extraction, Cholecystectomy, Foot repair, Hysterectomy, Knee replacement, Tonsillectomy and adenoidectomy; age 11 or over. Home Medications Advair Diskus 250 mcg-50 mcg inhalation powder, See Instructions, 1 refills celecoxib 200 mg Cap, 200 mg= 1 cap(s), Oral, BID cyclobenzaprine 10 mg Tab, 10 mg= 1 tab(s), Oral, TID, PRN DuoNeb 2.5 mg-0.5 mg/3 mL Soln-Inh, 3 mL, NEB, 6x/Day, 1 refills famotidine 20 mg Tab, 20 mg= 1 tab(s), Oral, Once a day (at bedtime) Flonase 0.05 mg/inh nasal spray, 2 spray(s), Nasal, Daily levothyroxine 137 mcg (0.137 mg) Tab, 137 mcg= 1 tab(s), Oral, Daily montelukast 10 mg Tab, See Instructions omeprazole 40 mg Cap-DR, 40 mg= 1 cap(s), Oral, Daily Ozempic (1 mg dose), 1 mg, SubCutaneous, qWeek ProAir RespiClick 90 mcg/inh inhalation powder, 2 puff(s), Inhalation, q4hr, PRN, 11 refills Prolia, 60 mg, SubCutaneous, q6mo Zofran 4 mg Tab, 4 mg= 1 tab(s), Oral, q6hr Allergies Cefzil (Unknown) Eliquis (Unknown) Keflex (Hives) Pradaxa (Unknown) penicillin G benzathine (Hives) Social History Alcohol - Denies Alcohol Use, 10/26/2019 Current, Beer, Wine, 1-2 times per year, 05/22/2022 Employment/School - Low Risk, 05/22/2022 Exercise - Does not exercise, 05/22/2022 Home/Environment - Low Risk, 05/22/2022 Nutrition/Health - Low Risk, 05/22/2022 Sexual - No Risk, 05/22/2022 Substance Abuse - Denies Substance Abuse, 10/26/2019 Tobacco - Denies Tobacco Use, 10/26/2019 Never (less than 100 in lifetime) Tobacco Use:. Never Smokeless Tobacco Use:., 10/01/2022 Family History Cancer: Mother. Diabetes mellitus type 2: Sister. Stroke: Father. Screenings and Assessments 11/21/22 09:56:00 Result Name Value Comment Phone Call Monitoring Consent Agreed to continue call Phone Verification Patient Information Full name, street address and date of verified CM Program Enrollment Provides verbal consent for enrollment Goals and Interventions Care Plan Progress Note Admit Date: 11/19/22 [facility] Date of Discharge: 11/20/22 Follow-up appointment scheduled? yes, 11/22/22 t 1300 with Did you understand your discharge instructions? yes Are you able to follow them? yes Did you receive new medications? yes, Levaquin 750 mg daily x 6 days, Flagyl TID x 6 days, Zofran 4 mg q6 hr prn Have you filled the Rx's? yes Are you taking them as prescribed? yes Are you having difficulty eating or swallowing your pills? yes Are you having any stomach upset, diarrhea or constipation? yes, nausea How are you sleeping? okay Are you having any pain? no Do you have everything you need at home to care for yourself? yes Do you have Home Health? no Called patient for Transitional Care Management following hospitalization at [facility] for vomiting diarrhea, dehydration, gastroenteritis and distal colitis. Reviewed discharge instructions and medications reconciled with patient, discharge list and EHR. Reviewed purpose and side effects of new medications. Patient complains of continued nausea, having difficulty eating foods, encouraged plenty of fluids to avoid further dehydration. Patient states diarrhea stopped last night. Patient complains of cough that developed while in hospital is using nebulizer treatments TID-QID. Patient has not checked any BS readings since discharge. Scheduled patient for follow-up 11/22/[address] Benav[address]. Communication Events Date: November 21, 2022 Method: Phone call Type: Outbound Duration (min): 11 Outcome: Case discussion Contact Type: video coordinator Contact Name: Chely (more content not included)... Normal [facility] CBC AUTO DIFFon 11-20-2022 BASO # 0.0 103/ul Normal 0.0-0.1 [facility] Comment on above: Performed By: #### C BC ####[facility] [address] [place], [place] [address]Dr. Jean Crow Basophils/100 WBC (Bld) 0.1 % Critically low 0.2-2.0 [facility] Comment on above: Performed By: #### C BC ####[facility] [address] [place] [address]Dr. Jean Crow EO # 0.0 103/ul Normal 0.0-0.7 [facility] Comment on above: Performed By: #### C BC ####[facility] [address] [place] [address]Dr. Jean Crow Eosinophils/100 WBC (Bld) 0.5 % Critically low 0.9-7.0 [facility] Comment on above: Performed By: #### C BC ####[facility] [address] [place] [address]Dr. Jean Crow Erythrocyte distribution width (RBC) [Ratio] 14.8 % Normal 11.0-15.0 [facility] Comment on above: Performed By: #### C BC ####[facility] [address] [place] [address]Dr. Jean Crow Hematocrit (Bld) [Volume fraction] 32.7 % Critically low 36.0-48.0 [facility] Comment on above: Performed By: #### C BC ####[facility] [address] [place] [address]Dr. Jean Crow Hemoglobin (Bld) [Mass/Vol] 10.1 g/dL Critically low 12.0-16.0 [facility] Comment on above: Performed By: #### C BC ####[facility] [address] [place] [address]Dr. Jean Tristin IG # 0.03 10e3/ul Normal 0.00-0.03 [facility] Comment on above: Performed By: #### C BC ####[facility] [address] [place] [address]Dr. Liliaazael Crow IG % 0.4 % Normal 0.0-0.5 [facility] Comment on above: Performed By: #### C BC ####[facility] [address] [place] [address]Dr. Jean Tristin LYMPH # 0.8 103/ul Critically low 1.2-3.8 The [facility] Comment on above: Performed By: #### C BC ####[facility] [address] [place] [address]Dr. Jean Crow Lymphocytes/100 WBC (Bld) 9.6 % Critically low 20.5-60.0 [facility] Comment on above: Performed By: #### C BC ####[facility] [address] [place] [id number]. Liliaazael Crow MANUAL DIFF REQ NO Normal [facility] Comment on above: Performed By: #### C BC ####[facility] [address] [place] [id number]. Jean Tristin MCH (RBC) [Entitic mass] 27.5 pg Normal 26.7-34.0 [facility] Comment on above: Performed By: #### C BC ####[facility] [address] [place] [address]Dr. Jean Crow MCHC (RBC) [Mass/Vol] 30.9 g/dL Normal 29.9-35.2 [facility] Comment on above: Performed By: #### C BC ####[facility] [address] [place] [address]Dr. Jean Tristin MCV (RBC) [Entitic vol] 89.1 fL Normal 81.0-99.0 [facility] Comment on above: Performed By: #### C BC ####[facility] [address] [place] [address]Dr. Jean Tristin MONO # 0.5 103/ul Normal 0.3-0.8 [facility] Comment on above: Performed By: #### C BC ####[facility] [address] [place] [address]Dr. Jean Tristin Monocytes/100 WBC (Bld) 6.2 % Normal 1.7-12.0 [facility] Comment on above: Performed By: #### C BC ####[facility] [address] [place] [id number]. Jean Crow NEUT # 6.7 103/ul Critically high 1.4-6.5 [facility] Comment on above: Performed By: #### C BC ####[facility] [address] [place] [id number]. Jean Crow Neutrophils/100 WBC (Bld) 83.2 % Critically high 43.0-75.0 [facility] Comment on above: Performed By: #### C BC ####[facility] [address] [place] [id number]. Jean Tristin Platelet mean volume (Bld) [Entitic vol] 9.5 fL Normal 9.5-13.5 [facility] Comment on above: Performed By: #### C BC ####[facility] [address] [place] [id number]. Jean Crow PLT 222 103/ul Normal 150-450 [facility] Comment on above: Performed By: #### C BC ####[facility] [address] [place] [id number]. Jean Tristin RBC 3.67 106/ul Critically low 4.20-5.40 [facility] Comment on above: Performed By: #### C BC ####[facility] [address] [place] [address]Dr. Liliaazael Tristin WBC 8.0 103/ul Normal 4.0-11.0 [facility] Comment on above: Performed By: #### C BC ####[facility] [address] [place] [address]Dr. Jean Crow PROF 14(COMP METB)on 023 Albumin [Mass/Vol] 2.4 g/dL Critically low 3.4-5.0 [facility] Comment on above: Performed By: #### C MP ####[facility] [address] [place] [id number]. Jean Crow Albumin/Globulin [Mass ratio] 0.9 {ratio} Normal [facility] Comment on above: Performed By: #### C MP ####[facility] [address] [place] [id number]. Jean Crow ALP [Catalytic activity/Vol] 101 U/L Normal 46-116 [facility] Comment on above: Performed By: #### C MP ####[facility] [address]ymxge[address] [place] [id number]. Jean Crow ALT [Catalytic activity/Vol] 60 U/L Critically high 14-59 [facility] Comment on above: Performed By: #### C MP ####[facility] X[address]vp[address] [place] [id number]. Jean Crow Anion gap [Moles/Vol] 11.9 mmol/L Normal [facility] Comment on above: Performed By: #### C MP ####[facility] [address] [place] [address]Dr. Jean Crow AST [Catalytic activity/Vol] 74 U/L Critically high 15-37 [facility] Comment on above: Performed By: #### C MP ####[facility] [address] [place] [address]Dr. Jean Crow Bilirubin [Mass/Vol] 1.3 mg/dL Critically high 0.2-1.0 [facility] Comment on above: Performed By: #### C MP ####[facility] [address] [place] [address]Dr. Jean Crow Calcium [Mass/Vol] 6.9 mg/dL Critically low 8.5-10.1 [facility] Comment on above: Performed By: #### C MP ####[facility] [address] [place] [address]Dr. Jean Crow Chloride [Moles/Vol] 103 mmol/L Normal 98-107 [facility] Comment on above: Performed By: #### C MP ####[facility] [address] [place] [address]Dr. Jean Crow CO2 [Moles/Vol] 24.7 mmol/L Normal 21.0-32.0 [facility] Comment on above: Performed By: #### C MP ####[facility] [address] [place] [address]Dr. Jean Tristin Creatinine [Mass/Vol] 0.53 mg/dL Critically low 0.55-1.02 [facility] Comment on above: Performed By: #### C MP ####[facility] [address] [place] [address]Dr. Jean Tristin EGFR-AF BULGARIAN >60 Normal >=60 [facility] Comment on above: Performed By: #### C MP ####[facility] [address] [place] [address]Dr. Jean Tristin EGFR-NON AF BULGARIAN >60 Normal >=60 [facility] Comment on above: Performed By: #### C MP ####[facility] [address] [place], [place] [address]Dr. Jean Crow Globulin (S) [Mass/Vol] 2.6 g/dL Normal [facility] Comment on above: Performed By: #### C MP ####[facility] [address] [place], [place] [address]Dr. Jean Crow Glucose [Mass/Vol] 88 mg/dL Normal 74-106 [facility] Comment on above: Performed By: #### C MP ####[facility] [address] [place], [place] [address]Dr. Jean Crow Potassium [Moles/Vol] 3.6 mmol/L Normal 3.5-5.1 [facility] Comment on above: Performed By: #### C MP ####[facility] [address] [place], [place] [address]Dr. Jean Crow Protein [Mass/Vol] 5.0 g/dL Critically low 6.4-8.2 Th e [facility] Comment on above: Performed By: #### C MP ####[facility] [address] [place], [place] [address]Dr. Jean Crow Sodium [Moles/Vol] 136 mmol/L Normal 136-145 [facility] Comment on above: Performed By: #### C MP ####[facility] [address] [place], [place] [address]DrYury Crow Urea nitrogen [Mass/Vol] 11.0 mg/dL Normal 7.0-18.0 [facility] Comment on above: Performed By: #### C MP ####[facility] [address] [place] [address]DrYury Crow Urea nitrogen/Creatinine [Mass ratio] 20.8 mg/mg Normal [facility] Comment on above: Performed By: #### C MP ####[facility] [address] [place] [address]Dr. Jean Crow BNPon 11-19-2022 Natriuretic peptide B (Bld) [Mass/Vol] 316.0 pg/mL Normal <=900.0 [facility] Comment on above: Performed By: #### C VDAGS #### [facility] [address] [place] [address] [address] Jean Crow CBC AUTO DIFFon 11-19-2022 BASO # 0.0 103/ul Normal 0.0-0.1 [facility] Comment on above: Performed By: #### C BC ####[facility] [address] [place], [place] [address]Dr. Jean Crow Basophils/100 WBC (Bld) 0.2 % Normal 0.2-2.0 [facility] [facility] Comment on above: Performed By: #### C BC ####[facility] [address] [place], [place] [address]DrYury Crow EO # 0.1 103/ul Normal 0.0-0.7 [facility] Comment on above: Performed By: #### C BC ####[facility] [address] [place] [address]DrYury Crow Eosinophils/100 WBC (Bld) 1.0 % Normal 0.9-7.0 The [facility] Comment on above: Performed By: #### C BC ####[facility] [address] [place], [place] [address]DrYury Crow Erythrocyte distribution width (RBC) [Ratio] 14.9 % Normal 11.0-15.0 The [facility] Comment on above: Performed By: #### C BC ####[facility] [address] [place] [address]Dr. Liliaazael Crow Hematocrit (Bld) [Volume fraction] 40.7 % Normal 36.0-48.0 The [facility] Comment on above: Performed By: #### C BC ####[facility] B[address] [place], [place] [address]Dr. Jean Crow Hemoglobin (Bld) [Mass/Vol] 12.7 g/dL Normal 12.0-16.0 The [facility] Comment on above: Performed By: #### C BC ####[facility] M[address] [place], [place] [address]Dr. Jean Crow IG # 0.03 10e3/ul Normal 0.00-0.03 [facility] Comment on above: Performed By: #### C BC ####[facility] Mt[address]ke[address] [place], [place] [address]Dr. Jean Crow IG % 0.3 % Normal 0.0-0.5 [facility] Comment on above: Performed By: #### C BC ####[facility] [address] [place], [place] [address]Dr. Jean Crow LYMPH # 0.8 103/ul Critically low 1.2-3.8 The [facility] Comment on above: Performed By: #### C BC ####[facility] On[address] [place], [place] [address]Dr. Jean Crow Lymphocytes/100 WBC (Bld) 6.7 % Critically low 20.5-60.0 The [facility] Comment on above: Performed By: #### C BC ####[facility] [address] [place], [place] [address]Dr. Jean Crow MANUAL DIFF REQ NO Normal The [facility] Comment on above: Performed By: #### C BC ####[facility] [address] [place], [place] [address]Dr. Jean Crow MCH (RBC) [Entitic mass] 28.0 pg Normal 26.7-34.0 The [facility] Comment on above: Performed By: #### C BC ####[facility] [address] [place] [address]Dr. Jean Crow MCHC (RBC) [Mass/Vol] 31.2 g/dL Normal 29.9-35.2 The [facility] Comment on above: Performed By: #### C BC ####[facility] [address] [place] [address]Dr. Liliaazael Crow MCV (RBC) [Entitic vol] 89.6 fL Normal 81.0-99.0 The [facility] Comment on above: Performed By: #### C BC ####[facility] [address] [place], [place] [address]Dr. Jean Crow MONO # 0.7 103/ul Normal 0.3-0.8 The [facility] Comment on above: Performed By: #### C BC ####[facility] [address] [place], [place] [address]Dr. Jean Crow Monocytes/100 WBC (Bld) 5.8 % Normal 1.7-12.0 The [facility] Comment on above: Performed By: #### C BC ####[facility] [address] [place], [place] [address]Dr. Jean Crow NEUT # 9.8 103/ul Critically high 1.4-6.5 The [facility] Comment on above: Performed By: #### C BC ####[facility] [address] [place], [place] [address]Dr. Jean Crow Neutrophils/100 WBC (Bld) 86.0 % Critically high 43.0-75.0 The [facility] Comment on above: Performed By: #### C BC ####[facility] [address] [place], [place] [address]Dr. Jean Crow Platelet mean volume (Bld) [Entitic vol] 9.3 fL Critically low 9.5-13.5 The [facility] Comment on above: Performed By: #### C BC ####[facility] [address] [place], [place] [address]Dr. Jean Crow PLT 283 103/ul Normal 150-450 The [facility] Comment on above: Performed By: #### C BC ####[facility] [address] [place], [place] [address]Kf. Jean Crow RBC 4.54 106/ul Normal 4.20-5.40 The [facility] Comment on above: Performed By: #### C BC ####[facility] [address] [place], [place] [address]Lk. Jean Crow WBC 11.4 103/ul Critically high 4.0-11.0 The [facility] Comment on above: Performed By: #### C BC ####[facility] [address] [place], [place] [address]To. Jean Crow CT ABD/PELV W CONon 11-20-[address] ABD/PELV W CON EXAM: CT ABD/PELV W CON HISTORY: GENERALIZED ABDOMINAL PAIN COMPARISON: None. TECHNIQUE: Axial CT imaging was performed through the abdomen and pelvis with intravenous contrast. Multiplanar reformats were performed. Dose reduction techniques were achieved by using automated exposure control and/or adjustment of mA and/or kV according to patient size and/or use of iterative reconstruction technique. FINDINGS: Lung bases: Lung bases are clear. No pleural effusion. GI upper: Unremarkable. Liver: Normal size and contour. Gallbladder: Cholecystectomy. Biliary system: There is prominence of the biliary system which is unchanged since prior examination, favored to be postcholecystectomy in nature. Spleen: Normal size. Pancreas: Unremarkable. Adrenal glands: Normal adrenal glands. Kidneys/ureters: Normal contours. No hydronephrosis. No nephrolithiasis or ureterolithiasis. Vessels: No aneurysm. Lymph Nodes: No lymphadenopathy. Small bowel: No wall thickening or dilatation. Colon: No dilatation. There is circumferential wall thickening of the distal third transverse colon and descending colon, likely representing infectious/ischemic colitis. There are sigmoid diverticula without evidence of acute diverticulitis. Appendix: Appendix is identified with normal appearance. Peritoneal cavity: No free fluid or pneumoperitoneum. Lower : Hysterectomy. The urinary bladder is unremarkable. Bones: No acute bony abnormality. There are degenerative changes of the lower lumbar spine. Soft tissues: No acute finding. Additional findings: None. IMPRESSION: circumferential wall thickening of the distal third transverse colon and descending colon, likely representing infectious/ischemic colitis. Electronically authenticated by: LISA BAÑUELOS Date: 2022-11-19 15:16 Normal The [facility] Covid-19 PCR (CVDTBH)on 10-30 SARS-CoV-2 (COVID-19) RNA BRIAN+probe Ql (Unsp spec) Not detected Normal NOT DETECTED The [facility] Comment on above: Performed By: #### C VDTBH ####[facility] [address] [place], [place] [address]Dr. Jean Crow GI PANEL (PCR)on 11-19-2022 Adenovirus F 40/41 Not detected Normal NOT DETECTED [facility] Comment on above: Performed By: #### G IPANEL ####[facility] [address] [place], [place] [address]Dr. Jean Crow Astrovirus Not detected Normal NOT DETECTED The [facility] Comment on above: Performed By: #### G IPANEL ####[facility] J[address] [place], [place] [address]Dr. Jean Crow C. Diff toxin A/B Not detected Normal NOT DETECTED The [facility] Comment on above: Performed By: #### G IPANEL ####[facility] [address] [place], [place] [address]Dr. Jean Crow Campylobacter Not detected Normal NOT DETECTED The [facility] Comment on above: Performed By: #### G IPANEL ####[facility] [address] [place], [place] [address]Dr. Jean Crow Cryptosporidium Not detected Normal NOT DETECTED The [facility] Comment on above: Performed By: #### G IPANEL ####[facility] [address] [place], [place] [address]Dr. Jean Crow Cyclos. Cayetanensis Not detected Normal NOT DETECTED The [facility] Comment on above: Performed By: #### G IPANEL ####[facility] [address] [place], [place] [address]Dr. Jean Crow E. Coli O157 Not Applicable Normal Not Applicable The [facility] Comment on above: Performed By: #### G IPANEL ####[facility] [address] [place], [place] [address]Dr. Jean Crow E. histolytica Not detected Normal NOT DETECTED [facility] Comment on above: Performed By: #### G IPANEL ####[facility] [address] [place], [place] [address]Dr. Liliaazael Crow EAEC Not detected Normal NOT DETECTED The [facility] Comment on above: Performed By: #### G IPANEL ####[facility] [address] [place], [place] [address]Dr. Jean Crow EIEC Not detected Normal NOT DETECTED [facility] Comment on above: Performed By: #### G IPANEL ####[facility] Ecp[address]ets[address] [place], [place] [address]Dr. [facility] EPEC Not detected Normal NOT DETECTED [facility] Comment on above: Performed By: #### G IPANEL ####[facility] [address] [place], [place] [address]Dr. Liliaazael Crow ETEC Not detected Normal NOT DETECTED [facility] Comment on above: Performed By: #### G IPANEL ####[facility] [address] [place], [place] [address]Dr. Jean Crow G. Lamblia Not detected Normal NOT DETECTED [facility] Comment on above: Performed By: #### G IPANEL ####[facility] Vic[address] [place], [place] [address]Dr. Jean [facility] CONTROL[facility] PASSED Normal The [facility] Comment on above: Performed By: #### G IPANEL ####[facility] [address] [place], [place] [address]Dr. Jean Crow [facility] JEANNE HEADER GI PANEL BACTERIA Normal [facility] Comment on above: Performed By: #### G IPANEL ####[facility] [address]ov[address] [place], [place] [address]Dr. Jean Crow [facility] EC[facility] PANEL DIARRHEAGENIC E.COLI / SHIGELLA Normal [facility] Comment on above: Performed By: #### G IPANEL ####[facility] [address]cl[address] [place], [place] [address]Dr. Jean [facility] INFO SEE BELOW Normal [facility] Comment on above: Result Comment: EAEC - Enteroaggregative E. Coli EPEC- Enteropathogenic E. Coli ETEC- Enterotoxigenic E. Coli lt/st STEC- Shigella-like toxin-producing E. Coli stx1/stx2 EIEC- Shigella/Enteroinvasive E. Coli Performed By: #### G IPANEL ####[facility] [address] [place] [address]Dr. Jean Crow GIPNLHD PARASITES GI PANEL PARASITES Normal The [facility] Comment on above: Performed By: #### G IPANEL ####[facility] [address] [place], [place] [address]Dr. Jean Crow GIPNLHD VIRUS GI PANEL VIRUSES Normal The [facility] Comment on above: Performed By: #### G IPANEL ####[facility] J[address] [place], [place] [address]Dr. Jean [facility] Norovirus GI/GII Not detected Normal NOT DETECTED The [facility] Comment on above: Performed By: #### G IPANEL ####[facility] [address] [place], [place] [address]Dr. Jean Crow P. Shigelloides Not detected Normal NOT DETECTED [facility] Comment on above: Performed By: #### G IPANEL ####[facility] [address]ts[address] [place], [place] [address]Dr. Jean Crow Rotavirus A Not detected Normal NOT DETECTED The [facility] Comment on above: Performed By: #### G IPANEL ####[facility] [address] [place], [place] [address]Dr. Jean Crow Salmonella Not detected Normal NOT DETECTED [facility] Comment on above: Performed By: #### G IPANEL ####[facility] Hzftiymcdh[address] [place], [place] [address]Dr. azael Crow Sapovirus Not detected Normal NOT DETECTED [facility] Comment on above: Performed By: #### G IPANEL ####[facility] [address] [place], [place] [address]Dr. Liliaazael Crow STEC Not detected Normal NOT DETECTED [facility] Comment on above: Performed By: #### G IPANEL ####[facility] [address] [place] [address]Dr. Jean Crow Vibrio Not detected Normal NOT DETECTED [facility] Comment on above: Performed By: #### G IPANEL ####[facility] [address] [place] [address]Dr. Jean Crow Vibrio Cholera Not detected Normal NOT DETECTED The [facility] Comment on above: Performed By: #### G IPANEL ####[facility] [address] [place] [address]Dr. Jean Crow Y. Enterocolitica Not detected Normal NOT DETECTED The [facility] Comment on above: Performed By: #### G IPANEL ####[facility] [address] [place], [place] [address]Dr. Jean Crow LACTATE/LACTIC ACIDon 2022 Lactate [Moles/Vol] 0.6 mmol/L Normal 0.4-2.0 [facility] Comment on above: Performed By: #### L ACT #### [facility] [address] [place] [address] Dr. Jean Crow LIPASEon 11-19-2022 Lipase [Catalytic activity/Vol] 73.0 U/L Normal 73.0-393.0 [facility] Comment on above: Performed By: #### C VDAGS #### [facility] [address] [place] [address] Dr. Jean Crow MAGNESIUMon 11-19-2022 Magnesium [Mass/Vol] 1.7 mg/dL Critically low 1.8-2.4 [facility] Comment on above: Performed By: #### M G ####[facility] [address] [place], [place] [address]DrYury Crow POINT OF CARE GLUCOSEon 10-30 Glucose [Mass/Vol] 96 mg/dL Normal 74-106 The [facility] Comment on above: Performed By: #### P OCGLUC ####[facility] [address] [place], [place] [address]DrYury Crow PROF 14(COMP METB)on 05-22-2 023 Albumin [Mass/Vol] 3.2 g/dL Critically low 3.4-5.0 [facility] Comment on above: Performed By: #### C VDAGS #### [facility] [address] [place] [address] Dr. Jean Crow Albumin/Globulin [Mass ratio] 1.0 {ratio} Normal [facility] Comment on above: Performed By: #### C VDAGS #### [facility] [address] [place] [address] Dr. Jean Crow ALP [Catalytic activity/Vol] 88 U/L Normal 46-116 [facility] Comment on above: Performed By: #### C VDAGS #### [facility] [address] [place] [address] Dr. Jean Crow ALT [Catalytic activity/Vol] 41 U/L Normal 14-59 [facility] Comment on above: Performed By: #### C VDAGS #### [facility] [address] [place] [address] Dr. Jean Crow Anion gap [Moles/Vol] 11.8 mmol/L Normal [facility] Comment on above: Performed By: #### C VDAGS #### [facility] [address] [place] [address] Dr. Jean Crow AST [Catalytic activity/Vol] 78 U/L Critically high 15-37 [facility] Comment on above: Performed By: #### C VDAGS #### [facility] [address] [place] [address] Dr. eJan Crow Bilirubin [Mass/Vol] 1.0 mg/dL Normal 0.2-1.0 [facility] Comment on above: Performed By: #### C VDAGS #### [facility] [address] [place] [address] Dr. Jean Crow Calcium [Mass/Vol] 8.1 mg/dL Critically low 8.5-10.1 [facility] Comment on above: Performed By: #### C VDAGS #### [facility] [address] [place] [address] Dr. Jean Crow Chloride [Moles/Vol] 106 mmol/L Normal 98-107 [facility] Comment on above: Performed By: #### C VDAGS #### [facility] [address] [place] [address] Dr. Jean Crow CO2 [Moles/Vol] 29.0 mmol/L Normal 21.0-32.0 [facility] Comment on above: Performed By: #### C VDAGS #### [facility] [address] [place] [address] [address] Jean Crow Creatinine [Mass/Vol] 0.77 mg/dL Normal 0.55-1.02 [facility] Comment on above: Performed By: #### C VDAGS #### [facility] [address] [place] [address] Dr. Jean Crow EGFR-AF BULGARIAN >60 Normal >=60 [facility] Comment on above: Performed By: #### C VDAGS #### [facility] [address] [place] [address] Dr. Jean Crow EGFR-NON AF BULGARIAN >60 Normal >=60 [facility] Comment on above: Performed By: #### C VDAGS #### [facility] [address] [place] [address] Dr. Jean Crow Globulin (S) [Mass/Vol] 3.1 g/dL Normal [facility] Comment on above: Performed By: #### C VDAGS #### [facility] [address] [place] [address] Dr. Jean Crow Glucose [Mass/Vol] 93 mg/dL Normal 74-106 [facility] Comment on above: Performed By: #### C VDAGS #### [facility] [address] [address] [address] Jean Crow Potassium [Moles/Vol] 3.8 mmol/L Normal 3.5-5.1 [facility] Comment on above: Performed By: #### C VDAGS #### [facility] [address] [place] [address] Dr. Jean Crow Protein [Mass/Vol] 6.3 g/dL Critically low 6.4-8.2 Th e [facility] Comment on above: Performed By: #### C VDAGS #### [facility] [address] [place] [address] Dr. Jean Crow Sodium [Moles/Vol] 143 mmol/L Normal 136-145 [facility] Comment on above: Performed By: #### C VDAGS #### [facility] [address] [place] [address] Dr. Jean Crow Urea nitrogen [Mass/Vol] 18.0 mg/dL Normal 7.0-18.0 [facility] Comment on above: Performed By: #### C VDAGS #### [facility] [address] [place] [address] Dr. Jean Crow Urea nitrogen/Creatinine [Mass ratio] 23.4 mg/mg Normal [facility] Comment on above: Performed By: #### C VDAGS #### [facility] [address] [place] [address] Dr. Jean Crow PROTIMEon 11-19-2022 INR Coag (PPP) [Relative time] 0.96 {INR} Normal [facility] Comment on above: Performed By: #### C VDAGS #### [facility] [address] [place] [address] Dr. Jean Crow INR GUIDELINES SEE BELOW Normal [facility] Comment on above: Result Comment: ANMOL RED INR: 2.0 - 3.0 CONDITIONS NOT LISTED BELOW 2.5 - 3.5 FOR PROSTHETIC HEART VALVE REPLACEMENT 2.5 - 3.5 RECURRENT THROMBOSIS Performed By: #### C VDAGS #### [facility] [address] [place] [address] Dr. Jean Crow PT Coag (PPP) [Time] 10.2 s Normal 9.0-11.6 [facility] Comment on above: Performed By: #### C VDAGS #### [facility] [address] [place] [address] Dr. Jean Crow SYMPTOMATIC COVID-19 ANTIGEN on 11-19-2022 EUA Statement SEE BELOW Normal [facility] Comment on above: Result Comment: This test has not been FDA cleared or approved, but has been authorized by the FDA under an Emergency Use Authorization (EUA) for use by authorized laboratories certified under CLIA that meet the requirements to perform moderate or high complexity testing. This test has been authorized only for the detection of proteins from SARS-CoV-2, not for any other viruses or pathogens. The emergency use of this test is authorized for the duration of the declaration that circumstances exist justifying the authorization of emergency use of in vitro diagnostic tests for detection and/or diagnosis of Covid-19 under section 564(b)(1) of the Act, 21 U.S.C. 360bbb-3(b)(1), unless the declaration is terminated or authorization is revoked sooner. Performed By: #### C VDAGS #### [facility] [address] [place] [address] Dr. Jean Crow SARS-CoV-2 (COVID-19) RNA BRIAN+probe Ql (Unsp spec) Negative Normal NEGATIVE The [facility] Comment on above: Performed By: #### C VDAGS #### [facility] [address] [place] [address] Dr. Jean Crow TROPONIN, HIGH SENSITIVITYon 11-19-2022 HSTROP 49.8 pg/mL Normal 4.0-51.3 The [facility] Comment on above: Result Comment: CUT- OFF POINTS HAVE BEEN ESTABLISHED BASED ON THE FOURTH UNIVERSAL DEFINITIONS OF MYOCARDIAL INFARCTION. THE UPPER REFERENCE LIMIT (URL) OF TROPONIN, DEFINED THE 99TH PERCENTILE OF cTnI DISTRIBUTION IN A REFERENCE POPULATION, HAS BEEN CONFIRMED THE DECISION THRESHOLD FOR MS DIAGNOSIS. Performed By: #### H STROPN #### [facility] [address] [place] [address] Dr. Jean Crow HSTROP 55.9 pg/mL Critically high 4.0-51.3 [facility] Comment on above: Result Comment: CUT- OFF POINTS HAVE BEEN ESTABLISHED BASED ON THE FOURTH UNIVERSAL DEFINITIONS OF MYOCARDIAL INFARCTION. THE UPPER REFERENCE LIMIT (URL) OF TROPONIN, DEFINED THE 99TH PERCENTILE OF cTnI DISTRIBUTION IN A REFERENCE POPULATION, HAS BEEN CONFIRMED THE DECISION THRESHOLD FOR MS DIAGNOSIS. Performed By: #### C VDAGS #### [facility] [address] [address] [address] Jean Crow LIPID PROFILEon 2022 CHOL-HDL RATIO NORM SEE BELOW Normal [facility] Comment on above: Result Comment: 3.3 - 4.4 LOW RISK 4.4 - 7.1 AVERAGE RISK 7.1 - 11.0 MODERATE RISK >11.0 HIGH RISK Performed By: #### C VDAGS #### [facility] [address] [address] [address] Jean Crow Cholesterol [Mass/Vol] 214 mg/dL Critically high <=200 [facility] Comment on above: Performed By: #### C VDAGS #### [facility] [address] [address] [address] Jean Crow Cholesterol in HDL [Mass/Vol] 61 mg/dL Critically high 40-60 [facility] Comment on above: Performed By: #### C VDAGS #### [facility] [address] [address] [address] Jean Crow Cholesterol in LDL [Mass/Vol] 143.0 mg/dL Normal [facility] Comment on above: Performed By: #### C VDAGS #### [facility] [address] [address] [address] Jean Crow Cholesterol.total/C holesterol in HDL [Mass ratio] 3.5 {ratio} Normal [facility] Comment on above: Performed By: #### C VDAGS #### [facility] [address] [address] [address] Jean Crow HDL NORMAL > or = 60 mg/dl - LO W CARDIOVASCULAR RISK <40 mg/dl - HIGH CARDIOVASCULAR RISK Normal [facility] Comment on above: Performed By: #### C VDAGS #### [facility] [address] [address] [address] Jean Crow LDL CALC NORMAL SEE BELOW Normal [facility] Comment on above: Result Comment: <100 mg/dl OPTIMAL 100 - 129 mg/dl NEAR OR ABOVE OPTIMAL 130 - 159 mg/dl BORDERLINE HIGH 160 - 189 mg/dl HIGH >190 mg/dl VERY HIGH Performed By: #### C VDAGS #### [facility] [address] [place] [address] Dr. Jean Crow Triglyceride [Mass/Vol] 50 mg/dL Normal <=150 [facility] Comment on above: Performed By: #### C VDAGS #### [facility] [address] [address] [address] Jean Crow VLDL CALC 10.0 mg/dL Normal [facility] Comment on above: Performed By: #### C VDAGS #### [facility] [address] [place] [address] Dr. Jean Crow MICROALB CREAT RATIO RANDOMo n 2022 mALB <1.3 Normal <=30.0 [facility] Comment on above: Performed By: #### C VDAGS #### [facility] [address] [place] [address] Dr. Jean Crow URINE CREAT 201.49 mg/dL Normal 20.00-300.00 [facility] Comment on above: Performed By: #### C VDAGS #### [facility] [address] [place] [address] Dr. Jean Crow PROF 14(COMP METB)on 023 Albumin [Mass/Vol] 3.5 g/dL Normal 3.4-5.0 [facility] Comment on above: Performed By: #### C VDAGS #### [facility] [address] [place] [address] Dr. Jean Crow Albumin/Globulin [Mass ratio] 1.0 {ratio} Normal [facility] Comment on above: Performed By: #### C VDAGS #### [facility] [address] [place] [address] Dr. Jean Crow ALP [Catalytic activity/Vol] 61 U/L Normal 46-116 [facility] Comment on above: Performed By: #### C VDAGS #### [facility] [address] [place] [address] Dr. Jean Crow ALT [Catalytic activity/Vol] 37 U/L Normal 14-59 [facility] Comment on above: Performed By: #### C VDAGS #### [facility] [address] [address] [address] Jean Crow Anion gap [Moles/Vol] 11.6 mmol/L Normal [facility] Comment on above: Performed By: #### C VDAGS #### [facility] [address] [address] [address] Jean Crow AST [Catalytic activity/Vol] 18 U/L Normal 15-37 [facility] Comment on above: Performed By: #### C VDAGS #### [facility] [address] [address] [address] Jean Crow Bilirubin [Mass/Vol] 0.5 mg/dL Normal 0.2-1.0 [facility] Comment on above: Performed By: #### C VDAGS #### [facility] [address] [place] [address] Dr. Jean Crow Calcium [Mass/Vol] 8.7 mg/dL Normal 8.5-10.1 [facility] Comment on above: Performed By: #### C VDAGS #### [facility] [address] [place] [address] Dr. Jean Crow Chloride [Moles/Vol] 107 mmol/L Normal 98-107 [facility] Comment on above: Performed By: #### C VDAGS #### [facility] [address] [place] [address] Dr. Jean Crow CO2 [Moles/Vol] 28.9 mmol/L Normal 21.0-32.0 [facility] Comment on above: Performed By: #### C VDAGS #### [facility] [address] [place] [address] Dr. Jean Crow Creatinine [Mass/Vol] 0.61 mg/dL Normal 0.55-1.02 [facility] Comment on above: Performed By: #### C VDAGS #### [facility] [address] [place] [address] Dr. Jean Crow EGFR-AF BULGARIAN >60 Normal >=60 [facility] Comment on above: Performed By: #### C VDAGS #### [facility] [address] [address] [address] Jean Crow EGFR-NON AF BULGARIAN >60 Normal >=60 [facility] Comment on above: Performed By: #### C VDAGS #### [facility] [address] [address] [address] Jean Crow Globulin (S) [Mass/Vol] 3.4 g/dL Normal [facility] Comment on above: Performed By: #### C VDAGS #### [facility] [address] [address] [address] Jean Crow Glucose [Mass/Vol] 105 mg/dL Normal 74-106 [facility] Comment on above: Performed By: #### C VDAGS #### [facility] [address] [address] [address] Jean Crow Potassium [Moles/Vol] 3.5 mmol/L Normal 3.5-5.1 [facility] Comment on above: Performed By: #### C VDAGS #### [facility] [address] [address] [address] Jean Crow Protein [Mass/Vol] 6.9 g/dL Normal 6.4-8.2 [facility] Comment on above: Performed By: #### C VDAGS #### [facility] [address] [address] [address] Jean Crow Sodium [Moles/Vol] 144 mmol/L Normal 136-145 [facility] Comment on above: Performed By: #### C VDAGS #### [facility] [address] [address] [address] Jean Crow Urea nitrogen [Mass/Vol] 18.0 mg/dL Normal 7.0-18.0 [facility] Comment on above: Performed By: #### C VDAGS #### [facility] [address] [address] [address] Jean Crow Urea nitrogen/Creatinine [Mass ratio] 29.5 mg/mg Normal [facility] Comment on above: Performed By: #### C VDAGS #### [facility] [address] [address] [address] Jean Crow IMMUNOGLOBULIN E, TOTALon Immunoglobulin E, Total 25 IU/mL Normal 6-495 [facility] Comment on above: Performed By: #### I GETOT ####[facility] [id number] Jean Crow ASPERGILLUS AB, QUANTITATIVE DIDon 11-03-2022 Aspergillus flavus Negative Normal Neg:<1:1 [facility] Comment on above: Performed By: #### A SPDID ####[facility] [address] [address]Dr. Jean Crow Aspergillus fumigatus Negative Normal Neg:<1:1 [facility] Comment on above: Performed By: #### A SPDID ####[facility] [address] [address]Dr. Jean Crow Aspergillus niger Negative Normal Neg:<1:1 [facility] Comment on above: Performed By: #### A SPDID ####[facility] [address] [address]Dr. Jean Crow ANCA (ANTINEUTROPHIL CYTOPLA MSMIC ABon 11-01-2022 Atypical pANCA <1:20 Normal Neg:<1:20 [facility] Comment on above: Result Comment: The atypical pANCA pattern has been observed in a significant percentage of patients with ulcerative colitis, primary sclerosing cholangitis and autoimmune hepatitis. Performed By: #### A NCAA ####[facility] [address] [address]Dr[address] Jean Crow Cytoplasmic (C-ANCA) <1:20 Normal Neg:<1:20 [facility] Comment on above: Performed By: #### A NCAA ####[facility] [address] [address]Dr. Jean Crow Perinuclear (P-ANCA) <1:20 Normal Neg:<1:20 [facility] Comment on above: Result Comment: The presence of positive fluorescence exhibiting P-ANCA or C-ANCA patterns alone is not specific for the diagnosis of Abiodun's Granulomatosis (WG) or microscopic polyangiitis. Decisions about treatment should not be based solely on ANCA IFA results. The [employer] ANCA [employer] Consensus recommends follow up testing of positive sera with both MT-3 and MPO-ANCA enzyme immunoassays. As many as 5% serum samples are positive only by EIA. Ref. AM J Clin Pathol 1999;111:507-513. Performed By: #### A [facility] ####[facility] [address] [address]Dr. Jean Crow Consultation Noteon 11-02-19 Consultation Note [id number]:127 Normal [facility] CBC AUTO DIFFon 10-30-2022 BASO # 0.0 103/ul Normal 0.0-0.1 [facility] Comment on above: Performed By: #### C BC #### [facility] [address] [address] [address] Jean Crow Basophils/100 WBC (Bld) 0.3 % Normal 0.2-2.0 [facility] Comment on above: Performed By: #### C BC #### [facility] [address] [address] [address] Jean Crow EO # 0.1 103/ul Normal 0.0-0.7 [facility] Comment on above: Performed By: #### C BC #### [facility] [address] [address] [address] Jean Crow Eosinophils/100 WBC (Bld) 1.0 % Normal 0.9-7.0 [facility] Comment on above: Performed By: #### C BC #### [facility] [address] [address] [address] Jean Crow Erythrocyte distribution width (RBC) [Ratio] 15.3 % Critically high 11.0-15.0 [facility] Comment on above: Performed By: #### C BC #### [facility] [address] [address] [address] Jean Crow Hematocrit (Bld) [Volume fraction] 38.5 % Normal 36.0-48.0 [facility] Comment on above: Performed By: #### C BC #### [facility] [address] [address] [address] Jean Crow Hemoglobin (Bld) [Mass/Vol] 12.2 g/dL Normal 12.0-16.0 [facility] Comment on above: Performed By: #### C BC #### [facility] [address] [address] [address] Jean Crow IG # 0.08 10e3/ul Critically high 0.00-0.03 [facility] Comment on above: Performed By: #### C BC #### [facility] [address] [address] [address] Jean Crow IG % 1.0 % Critically high 0.0-0.5 [facility] Comment on above: Performed By: #### C BC #### [facility] [address] [address] [address] Jean Crow LYMPH # 2.3 103/ul Normal 1.2-3.8 [facility] Comment on above: Performed By: #### C BC #### [facility] [address] [address] [address] Jean Crow Lymphocytes/100 WBC (Bld) 28.6 % Normal 20.5-60.0 [facility] Comment on above: Performed By: #### C BC #### [facility] [address] [address] [address] Jean Crow MANUAL DIFF REQ NO Normal [facility] Comment on above: Performed By: #### C BC #### [facility] [address] [address] [address] Jean Crow MCH (RBC) [Entitic mass] 28.2 pg Normal 26.7-34.0 [facility] Comment on above: Performed By: #### C BC #### [facility] [address] [address] [address] Jean Crow MCHC (RBC) [Mass/Vol] 31.7 g/dL Normal 29.9-35.2 [facility] Comment on above: Performed By: #### C BC #### [facility] [address] [address] [address] Jean Crow MCV (RBC) [Entitic vol] 89.1 fL Normal 81.0-99.0 [facility] Comment on above: Performed By: #### C BC #### [facility] [address] [address] [address] Jean Crow MONO # 0.6 103/ul Normal 0.3-0.8 [facility] Comment on above: Performed By: #### C BC #### [facility] [address] [address] [address] Jean Crow Monocytes/100 WBC (Bld) 7.2 % Normal 1.7-12.0 [facility] Comment on above: Performed By: #### C BC #### [facility] [address] [place] [address] Dr. Jean Crow NEUT # 4.9 103/ul Normal 1.4-6.5 [facility] Comment on above: Performed By: #### C BC #### [facility] [address] [place] [address] Dr. Jean Crow Neutrophils/100 WBC (Bld) 61.9 % Normal 43.0-75.0 [facility] Comment on above: Performed By: #### C BC #### [facility] [address] [place] [address] Dr. Jean Crow Platelet mean volume (Bld) [Entitic vol] 8.6 fL Critically low 9.5-13.5 [facility] Comment on above: Performed By: #### C BC #### [facility] [address] [place] [address] Dr. Jean Crow PLT 304 103/ul Normal 150-450 [facility] Comment on above: Performed By: #### C BC #### [facility] [address] [place] [address] Dr. Jean Crow RBC 4.32 106/ul Normal 4.20-5.40 [facility] Comment on above: Performed By: #### C BC #### [facility] [address] [place] [address] [address] [address] Jean Crow WBC 7.9 103/ul Normal 4.0-11.0 [facility] Comment on above: Performed By: #### C BC #### [facility] [address] [place] [address] [address] [address] Jean Crow Coding Summary.on 10-10-2022 Coding Summary. CD:[id number] W w+PGhlYWQ+DZ4DRBSpG25 ieNKsgB9lT1CTQTnZIpge AELQEFkVZhOvcrSnVJ7ea XNjZXJu IC8+BS9oGJKbOuesmFKpk 0K8sTW7K97qbu2jDCwsiE X0RFLsYeNxqvvap8wipCc 6IDcuNmluOyBt HKEpbL61GAV1iK30Rr72z EIcuFFjx6kdaSp3SvGpYC KyDTZ0rQecUXkli4InXBK eX17toZUfn1J6 TCTuiWfpoJVjNhMzzHY0o N4oCScorvhbj3ksigdwAy t5ua10fEJby1C3pVV1F9W rdcQ2VHXmlETj EtozzUNBjO5azymts5bzb lxyQsZjIVUuGPn5MSj9AK RseIplHeHlNL10LZO2UHO lvhSfG3KdHQMv hSsxGmW9t6P6Lw0GU0JEG klyZ1EPILRHUUqekEB+PC 47sc11J4NdDqgjSaw5TEX mYYX2vQX0rD5f JIDyOAbhv6Q3nLN2U8Tam mFwfu0ll5klAPBwYKucY2 6uuYSwh1H9EDKtvSZ5FDH djLfnFfSafS95 Oyc+LMVslWpiy1JyDutgw 7dme6scrIh7OreeQOHygb CjdXecDVM9l3LxHd5oGNC chTS6sJU9dJ0g DdWcQnV7HDicO879McGsy NEgZvomQ59tA5FfzXY+PH RnRld6TFHnhTmvXK8sX0D hZGRpbmctbGVm uJsoKT5aXTUekdrpBFEqa V1qDJMxF5x8NfQzNjT7EL jfX8PlTPIpddqmLn49rO3 zOfOzJqR6CZky P3VxdpZ9KMKttUShYUkyF UP3L50pw5V4QHBrAECoUG K8tJN3nK8ceJnpgalnbFP mdDsgdmVydGlj KKqaIWuqZ982JESyiEnkA kNvZGluZyBEYXRlOiAgMD QvMTIvMjAyMzwvdGQ+PHR uTCF0pZtvAERi yVNqNKpcEb8edMkekTytI X1nLAWommesPEJvkO7vVZ DynGEbeXpxAP9jFZPijae ef528VuLaIDL5 KWFvgEMzC6TxdP1zIuFkI OXdGEOaB6BqvEPoVHzrU9 50PKuvNxF5VBQsncBdN1R sLWFsaWduOiB0 f7P1Ga8Ub0WwkgaeJ8Gwp MTaVnRpYkoxAHz5R0OnTz wvdHI+XL14NZHtJQ83HRe 9PVC9uCkjGAmb LUMtX9MduN8nZiZmFMPiD GRkOyc+PHRhYmxlIHdpZH RoPScxMDAlJyBzdHlsZT0 qBn1wBUKzDUHe hCpbrRFaJsQit5vlBHLtO TsbOB9ldZwmN8LafXI6FN Cha6o6Bz48X26kY0XbtVF +KNDwgVZ3mQP9 jL6zHmOrXiS2WTpjP488X wFhhRDjApmfl8gmz2kasO v6UzU0LWVnglYvhOxsGIV 9u9JoQu87M12i IHdpZHRoPSIxNSUiIHZhb Hvfdd2wsC6lKj3+PGNvbC V4wBA7wU6tEaFtLlT5QOi xJ517FnRtxAIj Plibo0xgg4kbuGp4RfCcR JQqbbUzwGodDDC3d4KgNc 12I8GooSeod7TnRyg1xl4 3vMRav7A4uWB7 N2CkLFUgdsczyUWtxLmtG A6rZDYjlpisABSymT1lFT BmV0h1QsGdLkY5KQrxX9C jseR3KRJmeJTj QBNucHSJiF6oluyie5scs bnbKeMmNGTeACk1QQl6DM ZyyCyhYkDsOJM9NyN4ENM 7iUJknF2ybMft eulbkL9pMtb+NBA5yUWiu NOKIU5rZxmhdIY+PHRkIH U4yAoxSCbgECRhnL3kCHP qL7o0GlGcDuY5 CRydF0FraoF5RUQhiFGlN ZQivGDLcW9xhbmek8oxri ovPrTkEUAbYIn5JEp3JOY saWduOiBsZWZ0 HmK1KOP1iDJjfS5orFssx owcqI4jDwq+QmlydGggRG E7RIx9I5UmKqg8OENksRs gGZ4avNNnSGjh Nc6ddJfnoNmbMY2iJLYtu nekv552MiZdm6ncANVtuL RbPQfbYCG8N31ik1F8MPZ sOOMsSRT8jVG2 lA0ahMlunuqrrEHuiTayz fUgnBgqDRucSXysX354HB NjlHwnHfDxCVi3U4KtDiu 5EZFzpGxtRW1e yWOtNYmpCb2ajOfxfPpyS P3wKVHhdttkk901GfWul5 zlUKZzjXCxHAafADK4B29 ij9U7KWKnAFUs MCH9nZL6zO4vyKohnqghu GVmdDsgdmVydGljYWwtYW qdK481BSMlbZdqNoBjyMm 4D9HqZst1DKXd xEcaYS2kbSDnZTysEc5xt GomfLrnJD4hDWQexahch7 52ZjXzk9akEIAkeTPcUXq zQEI0I58xp6X1 CEJqGUYrQJD5fKD4eG0jt GlnbjogbGVmdDsgdmVydG lyMBvjNPrfL394CZTksAf nPlBhdGllbnQg FQqaJXf9P6YeLxfdaSH+P D97PPNzBJ29jWAvxSCus3 rdrXt8KhDmFISfOAJ2qHj yUYvbi4MpEHBy N00czZImf1K3WPYysRjja UVzWvYgrSS8wH2fZCbmqk mzt7kaojwnAnlzg4rhju4 0aL97Q55nJLcn ZHRoPSIzMCUiIHZhbGlnb h2mdJ8tZs1+VEIhpIT8oQ U1eD3kHXWxNkI6VFhcV99 9InRvcCIvPjxj e2pir7cmzIu2TzS2GDDov uArbFyjDGS6m4KaUu45L5 9sIHdpZHRoPSIyMCUiIHZ pzEzzoq2txC0g Ii8+PZYgfYG6pOQ7eB8gB dZpHsF8NPchK702QsRtdM GmGsisN39eD6UneRB+PHR pTjx7QKSrgNqv JE5loBEvZPppGe8vECN7V yKdEcFdBCjmT6BxMFTlig vbzchhtXO4UMHyKOEygO3 1Xj2emLixYRLj uLBHkH0blkqgr1xwvxsoM iMkICKgXQw1YUw9DBRfnO yqWoDpNEY2QbC4GWK8fBU epQ9veFdxvkyd qQ5zZ0GkKTSadedgGp98w L1qPcLuGdP5HFdmEee+QU xULCBDSEVSWUwgQTwvdGQ +RIInNWS0vCug EDctWIMnoQ5hWLWbN0x4J uBjKrE2LBgxJ0QcRATkpa isOp17oM3bHzQpDiY8SRp oB0PusoU7MVLd sKPqIGnoQEC2X81qx4A4X EFhSCTvRYC5tRC1vC9kkY lnbjogbGVmdDsgdmVydGl wXKqfZMahR919 PYNknPcyTfN9KqU4SaG9C uF3U2QaHvw5TLXabJuwYJ 2hxFEhCIsiMw3vlLbntKi kGH7rYCKlrjpa ETVvaU4pIQEwaDZlhVcdJ G3sOCLvioffx061MxWzVV U8GIBrxFMfZ6HiqT9dTiA zJWGcLHJrO5Mp yKWmMMjyQ131TYdmJiR6R XRlhmRqE6UkGVCjvCirWi H7x1D3Qu68CfFCGUBysij vdGQ+PHRkIHN0 eXsfLTzvHBAjtM9kODCoL 8m3DhPpDsJ7VUuvG2PmOL AytdqdZd87eI2uUxRiWfX 2YLvnX8NltnI5 IRZobFAuUVkuLOG7G72pm 5C7RGFhXDGvAIS4gRE4mK 1hbGlnbjogbGVmdDsgdmV ydGljYWwtYWxp C634HCLyfWccHlSzfSIyZ TwvdGQ+UDNfYVA5cVdxIM xxCVTkyK1nGXWwD1i7VyI lTfW7YZfkL4Qr KCCjpaunQy29jI4dQlGjO xX1VAuhR6KesbJ8YYUdyT ZhJXhrPON6W69je0Y5BLQ hDAFgVXW8mRJ4 dI3xtVnegunhnMItzQifp iHvzLxgLLhxCXamS661PF DfdZyrEv78oYYpxHupviN 0O2FbYmezhWC+ OQ58LWPmKV74vEPheJUqj 0oipLp7RjVpXFEhVEW6fR siFQnac3ZmZPWtL69icQI as8S5BHRbsJqb pNGrJxJlzWQ9fH9qTUhpb qiqs3xudjohDhocq1elmo 32pK56L52bBGjvQAMdULX zMCUiIHZhbGln ke0zxG6kBx2+CAOmnUD8p SR1oM8iBkTkMlQ2QAoiV9 34EiKzyXYaEtoxc2bsv5a cgDf1NpPzTPCa glAchFfwVJL4a7MoIs71W 29sIHdpZHRoPSIyMCUiIH MgkEttdq4jcA4rFn8+PC9 cx8nsmz69xH25 dHI+AHHdLXC5nDsqAEkvY NSeeG2aIXfxXgE7GOIjBv TvtL97sAXlXWdmFx5seIn ckCxpQO8dOPGc yakhu586PoDbu3loJHQms CUsTJscYUA8R65rh0N9HZ EhWNJnSFD0kQG3xC7igRk nbjogbGVmdDsg teBhfYloMOksIIgpX215C ALvuCzmQmIzmCHvN5drxv ILDJ5pPtekgMV+PHRkIHN 0eWxlPSdwYWRk zI7aRFNpF9k7VxSpWjB9S FleC1OyxkU8GZViqVNaWR VkbNZVwF3hlgpns7girpe gIzAwMDAwMDt0 IIz4MSTkrSveAuFxBKC6F tK4MXW6jDMfkT9ugNkuyd hdfQ1yNgz+RklOOjwvdGQ +OCKaRUD9nBtw DTtePWYakP0zVMZnW6m3I hXmCoQ1MKkjE1QnurV9CQ JedTLgRYFvzMUEeV4xnlg qf8hudieyGyTz VIDeBOm6RKs5NMNufNlxB jKpRAY8UxV4ZFW1gMWabE 7xqPvpdoleiT5rDcb+TVJ OOjwvdGQ+PHRk IAF1kDcmIYreYBXigK7uU LNtY6a3IlVsZzL2WFniT4 NsbeN6QTDpfGLlSNNzsPO VzL0njviov0de enssXoJaVBGzTMp1IGy5T HToxXeqFkVkAYU8JnP8ZA T3gSUwoK4qnOwvoxozpA8 wOyc+TGX6FVP1 YF28KV02A5JbByofuAMqn +PHRhYmxlIHdpZHRoPS tcVIScGbVftTavAY1bDw6 yZGVyLWNvbGxh cHNlOiBj (more content not included)... Normal [facility] Urinalysis - AUTOMATEDon Appearance (U) cloudy [employer] Other Bilirubin Ql (U) Negative [employer] Other Color (U) orange [employer] Other Glucose Ql (U) 100 [employer] Other Hemoglobin Ql (U) Negative [employer] Other Ketones Ql (U) Negative [employer] Other Leukocyte esterase Test strip Ql (U) large [employer] Other Nitrite Ql (U) Positive [employer] Other pH (U) 5.0 [pH] [employer] Other Protein Ql (U) 30 [employer] Other Specific gravity (U) [Rel density] 1.010 [employer] Other Urobilinogen (U) [Mass/Vol] 1.0 mg/dL [employer] Other Urinalysis - AUTOMATED [employer] Other Urine Cultureon 10-05-2022 Bacteria identified Cx Nom (U) Reason for Exam Dysuria Urine 50,000 colonies/ml mixed bacterial skin contaminants 2 Days PERFORMED BY: [place] [id number] PATHOLOGIST JACKET CHANGER YING GONZALEZ M.D. [facility] Comment on above: Performed By: #### C UU #### [address] Bacteria identified Cx Nom (U) [employer] [facility] [employer] Other Urine culture routineOrdered By: Naomie Berry on 10-05-2022 Bacteria identified Cx Nom (U) 2 Days [facility] Pre-Certification Formon Pre-Certification Form [id number]# 1.00CD:127 Normal [facility] Ambulatory Visit Summaryon 0 10-01-2022 Ambulatory Visit Summary CAROLINA GOMEZ :1960 Visit Date:10/01/2022 Ambulatory Visit Instructions Your Diagnosis Annual physical exam Non-insulin dependent type 2 diabetes mellitus Pulmonary embolism with acute cor pulmonale Hypothyroid Moderate asthma without complication BMI 40.0-44.9, adult, BMI 40.0-44.9, adult, Body mass index [BMI] 40.0-44.9, adult Class 3 severe obesity due to excess calories with body mass index (BMI) of 40.0 to 44.9 in adult Your Care Team Attending Physician - Makayla HDZ, Silvestre Linares Primary Care Physician - ZIYAD HDZ, ALINE Conner This Is Your Medications List Contact prescribing physician if questions or concerns albuterol (ProAir RespiClick 90 mcg/inh inhalation powder) albuterol-ipratropium (DuoNeb 2.5 mg-0.5 mg/3 mL Soln-Inh) celecoxib (celecoxib 200 mg Cap) cyclobenzaprine (cyclobenzaprine 10 mg Tab) denosumab (Prolia) famotidine (famotidine 20 mg Tab) fluticasone nasal (Flonase 0.05 mg/inh nasal spray) fluticasone-salmetero l (Advair Diskus 250 mcg-50 mcg inhalation powder) levothyroxine (levothyroxine 137 mcg (0.137 mg) Tab) montelukast (montelukast 10 mg Tab) omeprazole (omeprazole 40 mg Cap-DR) semaglutide (Ozempic (1 mg dose)) [Image Removed: STOP]Stop taking these medications brompheniramine/dextr omethorphan/PSE (Bromfed DM oral syrup) budesonide-formoterol (Symbicort 160/4.5 inhalation aerosol with adapter) zafirlukast (zafirlukast 20 mg Tab) Procedures Performed EGD (esophagogastroduoden oscopy) gastric outlet reduction (05/21/2022), Colonoscopy (05/09/2021), EGD - Esophagogastroduodeno scopy (05/09/2021), Cataract extraction, Cholecystectomy, Foot repair, Hysterectomy, Knee replacement, Tonsillectomy and adenoidectomy; age 12 or over. Discharge Vitals Heart Rate (Peripheral) 86 Respiratory Rate 20 Blood Pressure 126/84 Height 56 in Height 143.2 cm Weight 190.96 lb Weight 86.8 kg BMI 42.33 What to do next Scheduled Follow-Up Appointments Saturday 3:00 PM EDT With: Haim Do DO Where: [facility] 2022 8:20 AM EDT With: Where: [facility] Invalid Interpretation Code 521 [place] [address]- \.br\ You Need to Complete the Following\.br\ CBC w/ Auto Diff, Blood, Routine collect, 10/01/22, Order for future visit, Lab Collect, Annual physical exam [facility] Office/Clini c Noteon 10-01-2022 Family Medicine Office/Clinic Note Chief Complaint follow up asthma recent PFTs showed restrictive airway and asthma HPI Staff follow up [facility] Maintenance: Colonoscopy: May 2022 Mammogram: scheduled for october pap/pelvic: scheduled for october covid/flu: UTD Asthma: Assessment of control: Frequency of daytime attacks: when she walks and exerts herself not 100% yet Frequency of nighttime attacks:not consistant good and bad night _ Rescue therapy use since last visit: saturday afternoon Currently having attack: no _ Refills needed: yes montelukast and advair History of Present Illness Pt here for her annual. - Pt recently admitted for asthma exacerbation. Pt improving. Seeing pulm - Getting mammo and pap next month - Colonoscopy last year Review of Systems PHQ Score Initial Depression Screen Score: 0 Physical Exam Vitals & Measurements HR: 86(Peripheral) RR: 20 BP: 126/84 SpO2: 93% HT: 56 in HT: 143.2 cm WT: 86.8 kg WT: 190.96 lb BMI: 42.33 General: alert, no acute distress ENMT: oral mucosa moist, Cardiovascular: regular rate and rhythm, normal peripheral perfusion Respiratory: Lungs CTA, respirations non labored, Diminished breath sounds Extremities: no deformity, no trauma Neurological: oriented x 4, LOC appropriate for age, CN II-XII intact, motor strength equal & normal bilaterally, speech normal Assessment/Plan 1. Annual physical exam (Z00.00: Encounter for general adult medical examination without abnormal findings) Anticipatory guidance given. Discussed diet and exercise. Discussed immunizations. Screenings are UTD. Ordered: CBC w/ Auto Diff Comprehensive Metabolic Panel HgbA1c Lipid Panel TSH With T4fr Reflex 2. Non-insulin dependent type 2 diabetes mellitus (E11.9: Type 2 diabetes mellitus without complications) - Last A1c was at goal, however patient has had to be on a lot of steroids. Will hold off getting another A1c for a few weeks. Ordered: CBC w/ Auto Diff Comprehensive Metabolic Panel HgbA1c Lipid Panel TSH With T4fr Reflex 3. Pulmonary embolism with acute cor pulmonale (I26.09: Other pulmonary embolism with acute cor pulmonale) Hx of. Now resolved Ordered: CBC w/ Auto Diff Comprehensive Metabolic Panel HgbA1c Lipid Panel TSH With T4fr Reflex 4. Hypothyroid (E03.9: Hypothyroidism, unspecified) - Unknown Ordered: CBC w/ Auto Diff Comprehensive Metabolic Panel HgbA1c Lipid Panel TSH With T4fr Reflex 5. Moderate asthma without complication (J45.909: Unspecified asthma, uncomplicated) - Follow up with Pulm. - Continue breathing treatments - Please send us your records. Ordered: CBC w/ Auto Diff Comprehensive Metabolic Panel HgbA1c Lipid Panel TSH With T4fr Reflex 6. BMI 40.0-44.9, adult, (Z68.41: Body mass index [BMI] 40.0-44.9, adult)BMI 40.0-44.9, adult - Diet and exercise advised Ordered: CBC w/ Auto Diff Comprehensive Metabolic Panel HgbA1c Lipid Panel TSH With T4fr Reflex 7. Class 3 severe obesity due to excess calories with body mass index (BMI) of 40.0 to 44.9 in adult (E66.01: Morbid (severe) obesity due to excess calories) - Diet and exercise advised. Ordered: CBC w/ Auto Diff Comprehensive Metabolic Panel HgbA1c Lipid Panel TSH With T4fr Reflex Follow-up No qualifying data available Patient Education BMI for Adults Problem List/Past Medical History Ongoing Allergic rhinitis Anemia Annual physical exam BMI 40.0-44.9, adult Chronic peripheral venous hypertension with lower extremity complication Chronic sinusitis Derangement of knee Diverticular disease Dysphagia Esophageal web Hemorrhoids Hx of pulmonary embolus Hypothyroid Hypoxemia Moderate asthma without complication Non-insulin dependent type 2 diabetes mellitus Obesity due to excess calories Oral thrush Pulmonary embolism with acute cor pulmonale Rheumatoid arthritis involving multiple sites with positive rheumatoid factor Weight loss, unintentional Historical Acid reflux Arthritis Asthma Change in bowel habits COVID-19 Loose stools Nausea Procedure/Surgical History EGD (esophagogastroduoden oscopy) gastric outlet reduction (05/21/2022), Colonoscopy (05/09/2021), EGD - Esophagogastroduodeno scopy (05/09/2021), Cataract extraction, Cholecystectomy, Foot repair, Hysterectomy, Knee replacement, Tonsillectomy and adenoidectomy; age 12 or over. Medications Advair Diskus 250 mcg-50 mcg inhalation powder, See Instructions celecoxib 200 mg Cap, 200 mg= 1 cap(s), Oral, BID cyclobenzaprine 10 mg Tab, 10 mg= 1 tab(s), Oral, TID, PRN DuoNeb 2.5 mg-0.5 mg/3 mL Soln-Inh, 3 mL, NEB, 6x/Day famotidine 20 mg Tab, 20 mg= 1 tab(s), Oral, Once a day (at bedtime) Flonase 0.05 mg/inh nasal spray, 2 spray(s), Nasal, Daily levothyroxine 137 mcg (0.137 mg) Tab, 137 mcg= 1 tab(s), Oral, Daily montelukast 10 mg Tab, 10 mg= 1 tab(s), Oral, BID omeprazole 40 mg Cap-DR, 40 mg= 1 cap(s), Oral, (more content not included)... Normal [facility] Comment on above: Result Comment: Elec tronically Signed By: Makayla HDZ, Silvestre Linares\.br\Date and Time Signed: 10/01/22 07:48 EDT Patient Educationon 10-01-19 Patient Education Nutrition BMI for Adults Body mass index (BMI) is a number that is calculated from a person's weight and height. BMI may help to estimate how much of a person's weight is composed of fat. BMI can help identify those who may be at higher risk for certain medical problems. How is BMI used with adults? BMI is used as a screening tool to identify possible weight problems. It is used to check whether a person is obese, overweight, healthy weight, or underweight. How is BMI calculated? BMI measures your weight and compares it to your height. This can be done either in [place] ([place] or metric measurements. Note that charts are available to help you find your BMI quickly and easily without having to do these calculations yourself. To calculate your BMI in [place] measurements, your health care provider will: 1. Measure your weight in pounds (lb). 2. Multiply the number of pounds by 703. ? For example, for a person who weighs 180 lb, multiply that number by 703, which equals 126,540. 3. Measure your height in inches (in). Then multiply that number by itself to get a measurement called inches squared. ? For example, for a person who is 70 in tall, the inches squared measurement is 70 in x 70 in, which equals 4900 inches squared. 4. Divide the total from Step 2 (number of lb x 703) by the total from Step 3 (inches squared): 126,540 ? 4900 = 25.8. This is your BMI. To calculate your BMI in metric measurements, your health care provider will: 1. Measure your weight in kilograms (kg). 2. Measure your height in meters (m). Then multiply that number by itself to get a measurement called meters squared. ? For example, for a person who is 1.75 m tall, the meters squared measurement is 1.75 m x 1.75 m, which is equal to 3.1 meters squared. 3. Divide the number of kilograms (your weight) by the meters squared number. In this example: 70 ? 3.1 = 22.6. This is your BMI. How is BMI interpreted? To interpret your results, your health care provider will use BMI charts to identify whether you are underweight, normal weight, overweight, or obese. The following guidelines will be used: ? Underweight: BMI less than 18.5. ? Normal weight: BMI between 18.5 and 24.9. ? Overweight: BMI between 25 and 29.9. ? Obese: BMI of 30 and above. Please note: ? Weight includes both fat and muscle, so someone with a muscular build, such as an athlete, may have a BMI that is higher than 24.9. In cases like these, BMI is not an accurate measure of body fat. ? To determine if excess body fat is the cause of a BMI of 25 or higher, further assessments may need to be done by a health care provider. ? BMI is usually interpreted in the same way for men and women. Why is BMI a useful tool? BMI is useful in two ways: ? Identifying a weight problem that may be related to a medical condition, or that may increase the risk for medical problems. ? Promoting lifestyle and diet changes in order to reach a healthy weight. Summary ? Body mass index (BMI) is a number that is calculated from a person's weight and height. ? BMI may help to estimate how much of a person's weight is composed of fat. BMI can help identify those who may be at higher risk for certain medical problems. ? BMI can be measured using Turkish measurements or metric measurements. ? To interpret your results, your health care provider will use BMI charts to identify whether you are underweight, normal weight, overweight, or obese. This information is not intended to replace advice given to you by your health care provider. Make sure you discuss any questions you have with your health care provider. Document Released: 02/26/2005 Document Revised: 05/30/2018 Document Reviewed: 04/30/2018 [employer] Patient Education ? 2020 [employer] Normal [facility] CBC AUTO DIFFon 09-16-2022 BASO # 0.0 103/ul Normal 0.0-0.1 [facility] Comment on above: Performed By: #### C VDAGS #### [facility] [address] [place] [address] Dr. Jean Crow Basophils/100 WBC (Bld) 0.2 % Normal 0.2-2.0 [facility] Comment on above: Performed By: #### C VDAGS #### [facility] [address] [place] [address] Dr. Jean Crow EO # 0.0 103/ul Normal 0.0-0.7 [facility] Comment on above: Performed By: #### C VDAGS #### [facility] [address] [place] [address] Dr. Jean Crow Eosinophils/100 WBC (Bld) 0.0 % Critically low 0.9-7.0 [facility] Comment on above: Performed By: #### C VDAGS #### [facility] [address] [place] [address] Dr. Jean Crow Erythrocyte distribution width (RBC) [Ratio] 16.3 % Critically high 11.0-15.0 [facility] Comment on above: Performed By: #### C VDAGS #### [facility] [address] [place] [address] Dr. Jean Crow Hematocrit (Bld) [Volume fraction] 37.4 % Normal 36.0-48.0 [facility] Comment on above: Performed By: #### C VDAGS #### [facility] [address] [place] [address] Dr. Jean Crow Hemoglobin (Bld) [Mass/Vol] 12.0 g/dL Normal 12.0-16.0 [facility] Comment on above: Performed By: #### C VDAGS #### [facility] [address] [place] [address] Dr. Jean Crow IG # 0.30 10e3/ul Critically high 0.00-0.03 [facility] Comment on above: Performed By: #### C VDAGS #### [facility] [address] [place] [address] Dr. Jean Crow IG % 2.3 % Critically high 0.0-0.5 [facility] Comment on above: Performed By: #### C VDAGS #### [facility] [address] [place] [address] Dr. Jean Crow LYMPH # 0.8 103/ul Critically low 1.2-3.8 [facility] Comment on above: Performed By: #### C VDAGS #### [facility] [address] [place] [address] Dr. Jean Crow Lymphocytes/100 WBC (Bld) 6.0 % Critically low 20.5-60.0 [facility] Comment on above: Performed By: #### C VDAGS #### [facility] [address] [place] [address] Dr. Jean Crow MANUAL DIFF REQ NO Normal [facility] Comment on above: Performed By: #### C VDAGS #### [facility] [address] [place] [address] Dr. Jean Crow MCH (RBC) [Entitic mass] 27.6 pg Normal 26.7-34.0 [facility] Comment on above: Performed By: #### C VDAGS #### [facility] [address] [place] [address] Dr. Jean Crow MCHC (RBC) [Mass/Vol] 32.1 g/dL Normal 29.9-35.2 [facility] Comment on above: Performed By: #### C VDAGS #### [facility] [address] [place] [address] Dr. Jean Crow MCV (RBC) [Entitic vol] 86.0 fL Normal 81.0-99.0 [facility] Comment on above: Performed By: #### C VDAGS #### [facility] [address] [place] [address] Dr. Jean Crow MONO # 0.1 103/ul Critically low 0.3-0.8 [facility] Comment on above: Performed By: #### C VDAGS #### [facility] [address] [address] [address] Jean Crow Monocytes/100 WBC (Bld) 1.1 % Critically low 1.7-12.0 [facility] Comment on above: Performed By: #### C VDAGS #### [facility] [address] [place] [address] Dr. Jean Crow NEUT # 11.9 103/ul Critically high 1.4-6.5 [facility] Comment on above: Performed By: #### C VDAGS #### [facility] [address] [place] [address] Dr. Jean Crow Neutrophils/100 WBC (Bld) 90.4 % Critically high 43.0-75.0 [facility] Comment on above: Performed By: #### C VDAGS #### [facility] [address] [place] [address] Dr. Jean Crow Platelet mean volume (Bld) [Entitic vol] 9.2 fL Critically low 9.5-13.5 [facility] Comment on above: Performed By: #### C VDAGS #### [facility] [address] [place] [address] Dr. Jean Crow PLT 235 103/ul Normal 150-450 [facility] Comment on above: Performed By: #### C VDAGS #### [facility] [address] [place] [address] Dr. Jean Crow RBC 4.35 106/ul Normal 4.20-5.40 [facility] Comment on above: Performed By: #### C VDAGS #### [facility] [address] [place] [address] Dr. Jean Crow WBC 13.1 103/ul Critically high 4.0-11.0 [facility] Comment on above: Performed By: #### C VDAGS #### [facility] [address] [place] [address] Dr. Jean Crow PROF 14(COMP METB)on 023 Albumin [Mass/Vol] 2.8 g/dL Critically low 3.4-5.0 [facility] Comment on above: Performed By: #### C VDAGS #### [facility] [address] [address] [address] Jean Crow Albumin/Globulin [Mass ratio] 0.8 {ratio} Normal [facility] Comment on above: Performed By: #### C VDAGS #### [facility] [address] [address] [address] Jean rCow ALP [Catalytic activity/Vol] 82 U/L Normal 46-116 [facility] Comment on above: Performed By: #### C VDAGS #### [facility] [address] [address] [address] Jean Crow ALT [Catalytic activity/Vol] 30 U/L Normal 14-59 [facility] Comment on above: Performed By: #### C VDAGS #### [facility] [address] [place] [address] Dr. Jean Crow Anion gap [Moles/Vol] 14.7 mmol/L Normal [facility] Comment on above: Performed By: #### C VDAGS #### [facility] [address] [address] [address] Jean Crow AST [Catalytic activity/Vol] 13 U/L Critically low 15-37 [facility] Comment on above: Performed By: #### C VDAGS #### [facility] [address] [place] [address] Dr. Jean Crow Bilirubin [Mass/Vol] 0.4 mg/dL Normal 0.2-1.0 [facility] Comment on above: Performed By: #### C VDAGS #### [facility] [address] [address] [address] Jean Crow Calcium [Mass/Vol] 8.5 mg/dL Normal 8.5-10.1 [facility] Comment on above: Performed By: #### C VDAGS #### [facility] [address] [address] [address] Jean Crow Chloride [Moles/Vol] 101 mmol/L Normal 98-107 [facility] Comment on above: Performed By: #### C VDAGS #### [facility] [address] [address] [address] Jean Crow CO2 [Moles/Vol] 26.0 mmol/L Normal 21.0-32.0 [facility] Comment on above: Performed By: #### C VDAGS #### [facility] [address] [address] [address] Jean Crow Creatinine [Mass/Vol] 0.59 mg/dL Normal 0.55-1.02 [facility] Comment on above: Performed By: #### C VDAGS #### [facility] [address] [address] [address] Jean Crow EGFR-AF BULGARIAN >60 Normal >=60 [facility] Comment on above: Performed By: #### C VDAGS #### [facility] [address] [place] [address] Dr. Jean Crow EGFR-NON AF BULGARIAN >60 Normal >=60 [facility] Comment on above: Performed By: #### C VDAGS #### [facility] [address] [place] [address] Dr. Jean Crow Globulin (S) [Mass/Vol] 3.4 g/dL Normal [facility] Comment on above: Performed By: #### C VDAGS #### [facility] [address] [place] [address] Dr. Jean Crow Glucose [Mass/Vol] 240 mg/dL Critically high 74-106 [facility] Comment on above: Performed By: #### C VDAGS #### [facility] [address] [place] [address] Dr. Jean Crow Potassium [Moles/Vol] 3.7 mmol/L Normal 3.5-5.1 [facility] Comment on above: Performed By: #### C VDAGS #### [facility] [address] [place] [address] Dr. Jean Crow Protein [Mass/Vol] 6.2 g/dL Critically low 6.4-8.2 Th e [facility] Comment on above: Performed By: #### C VDAGS #### [facility] [address] [address] [address] Jean Crow Sodium [Moles/Vol] 138 mmol/L Normal 136-145 [facility] Comment on above: Performed By: #### C VDAGS #### [facility] [address] [place] [address] Dr. Jean Crow Urea nitrogen [Mass/Vol] 17.0 mg/dL Normal 7.0-18.0 [facility] Comment on above: Performed By: #### C VDAGS #### [facility] [address] [place] [address] Dr. Jean Crow Urea nitrogen/Creatinine [Mass ratio] 28.8 mg/mg Normal [facility] Comment on above: Performed By: #### C VDAGS #### [facility] [address] [place] [address] Dr. Jean Crow BNPon 09-15-2022 Natriuretic peptide B (Bld) [Mass/Vol] 89.0 pg/mL Normal <=900.0 [facility] Comment on above: Performed By: #### H STROPN, BNP #### [facility] [address] [place] [address] Dr. Jean Crow CBC AUTO DIFFon 09-15-2022 BASO # 0.0 103/ul Normal 0.0-0.1 [facility] Comment on above: Performed By: #### C VDAGS #### [facility] [address] [place] [address] Dr. Jean Crow Basophils/100 WBC (Bld) 0.3 % Normal 0.2-2.0 [facility] Comment on above: Performed By: #### C VDAGS #### [facility] [address] [place] [address] Dr. Jean Crow EO # 0.0 103/ul Normal 0.0-0.7 [facility] Comment on above: Performed By: #### C VDAGS #### [facility] [address] [place] [address] Dr. Jean Crow Eosinophils/100 WBC (Bld) 0.3 % Critically low 0.9-7.0 [facility] Comment on above: Performed By: #### C VDAGS #### [facility] [address] [place] [address] Dr. Jean Crow Erythrocyte distribution width (RBC) [Ratio] 16.5 % Critically high 11.0-15.0 [facility] Comment on above: Performed By: #### C VDAGS #### [facility] [address] [place] [address] Dr. Jean Crow Hematocrit (Bld) [Volume fraction] 37.1 % Normal 36.0-48.0 [facility] Comment on above: Performed By: #### C VDAGS #### [facility] [address] [place] [address] Dr. Jean Crow Hemoglobin (Bld) [Mass/Vol] 11.9 g/dL Critically low 12.0-16.0 [facility] Comment on above: Performed By: #### C VDAGS #### [facility] [address] [place] [address] Dr. Jean Crow IG # 0.25 10e3/ul Critically high 0.00-0.03 [facility] Comment on above: Performed By: #### C VDAGS #### [facility] [address] [place] [address] Dr. Jean rCow IG % 2.4 % Critically high 0.0-0.5 [facility] Comment on above: Performed By: #### C VDAGS #### [facility] [address] [place] [address] Dr. Jean Crow LYMPH # 2.1 103/ul Normal 1.2-3.8 [facility] Comment on above: Performed By: #### C VDAGS #### [facility] [address] [place] [address] Dr. Jean Crow Lymphocytes/100 WBC (Bld) 19.3 % Critically low 20.5-60.0 [facility] Comment on above: Performed By: #### C VDAGS #### [facility] [address] [place] [address] Dr. Jean Crow MANUAL DIFF REQ NO Normal [facility] Comment on above: Performed By: #### C VDAGS #### [facility] [address] [place] [address] Dr. Jean Crow MCH (RBC) [Entitic mass] 27.9 pg Normal 26.7-34.0 [facility] Comment on above: Performed By: #### C VDAGS #### [facility] [address] [place] [address] Dr. Jean Crow MCHC (RBC) [Mass/Vol] 32.1 g/dL Normal 29.9-35.2 [facility] Comment on above: Performed By: #### C VDAGS #### [facility] [address] [place] [address] Dr. Jean Crow MCV (RBC) [Entitic vol] 86.9 fL Normal 81.0-99.0 [facility] Comment on above: Performed By: #### C VDAGS #### [facility] [address] [place] [address] Dr. Jean Crow MONO # 0.7 103/ul Normal 0.3-0.8 [facility] Comment on above: Performed By: #### C VDAGS #### [facility] [address] [place] [address] Dr. Jean Crow Monocytes/100 WBC (Bld) 6.1 % Normal 1.7-12.0 [facility] Comment on above: Performed By: #### C VDAGS #### [facility] [address] [place] [address] Dr. Jean Crow NEUT # 7.6 103/ul Critically high 1.4-6.5 [facility] Comment on above: Performed By: #### C VDAGS #### [facility] [address] [place] [address] Dr. Jean Crow Neutrophils/100 WBC (Bld) 71.6 % Normal 43.0-75.0 [facility] Comment on above: Performed By: #### C VDAGS #### [facility] [address] [place] [address] Dr. Jean Crow Platelet mean volume (Bld) [Entitic vol] 9.1 fL Critically low 9.5-13.5 The [facility] Comment on above: Performed By: #### C VDAGS #### [facility] [address] [address] [address] Jean Crow PLT 244 103/ul Normal 150-450 The [facility] Comment on above: Performed By: #### C VDAGS #### [facility] [address] [address] [address] Jean Crow RBC 4.27 106/ul Normal 4.20-5.40 [facility] Comment on above: Performed By: #### C VDAGS #### [facility] [address] [address] [address] Jean Crow WBC 10.6 103/ul Normal 4.0-11.0 [facility] Comment on above: Performed By: #### C VDAGS #### [facility] [address] [address] [address] Jean Crow CTA CHEST WO W CONon 023 CTA CHEST WO W CON EXAMINATION: CTA CHEST WO W CON, 09/15/2022 9:56 AM EDT HISTORY: SHORTNESS OF BREATH COMPARISON: None. TECHNIQUE: CT angiography of the chest was performed with IV contrast. MIP (maximum intensity projection) images or 3D post processing was performed. CT dose reduction technique was used, including Automated Exposure Control. FINDINGS: VASCULATURE/PULMONARY ARTERIES: There is suboptimal opacification of the pulmonary arterial system. There is no evidence of pulmonary embolism. The main pulmonary artery is normal in diameter. The aorta and great vessels appear normal. HEART/PERICARDIUM: There is cardiomegaly. No pericardial effusion. MEDIASTINAL/HILAR LYMPH NODES: No lymphadenopathy. ESOPHAGUS: Normal as visualized. PLEURAL CAVITY: No pleural effusion or pneumothorax. LUNGS/AIRWAYS: No infiltrates or consolidations. 3 mm pulmonary nodule in the right lower lobe (series 5, image 51). 5 mm pulmonary nodule in the right lower lobe (series 5, image 58). CHEST WALL/AXILLA/LOWER NECK: Normal. VISUALIZED UPPER ABDOMEN: There is hepatomegaly. BONES: Severe degenerative changes of the glenohumeral joints bilaterally. IMPRESSION: 1. Suboptimal opacification of the pulmonary arteries. No clear evidence of pulmonary embolism. 2. Right lower lobe pulmonary nodules measuring up to 5 mm. Follow-up as per Fleischner Society criteria recommendations. Electronically authenticated by: TYLER BEAN Date: 2022-09-15 11:31 Normal The [facility] Covid-19 PCR (CVDTBH)on 08-29 SARS-CoV-2 (COVID-19) RNA BRIAN+probe Ql (Unsp spec) Indeterminate Abnormal NOT DETECTED The [facility] Comment on above: Result Comment: Spec imen tested x2 to verify. Please resubmit new specimen if symptoms persist Performed By: #### C VDTBH ####[facility] [address] [address]DrYury Crow D-DIMERon 09-15-2022 D-DIMER 0.72 mg/L FEU Critically high <=0.59 The [facility] Comment on above: Performed By: #### D DIM ####[facility] [address] [place], [place] [address]DrYury Crow D-DIMER COMMENTS SEE BELOW Normal The [facility] Comment on above: Result Comment: Incr eases in D-Dimer concentration observed with thromboembolic events can be variable due to localization, size, and age of the thrombus. Therefore, a thromboembolic event cannot be diagnosed with certainty on the basis of the reference range. D-Dimers may also be elevated for a variety of disorders including: advanced age, , coronary disease, cancer, liver disease, infection, inflammation, hematoma, DIC, trauma, post-surgery, diabetes, thrombolytic or anticoagulant therapy, stress, and generalized hospitalization. Performed By: #### D DIM ####[facility] [address] [address]DrYury Crow PROF 14(COMP METB)on 023 Albumin [Mass/Vol] 3.0 g/dL Critically low 3.4-5.0 Th e [facility] Comment on above: Performed By: #### C MP ####[facility] [address] [place], [place] [address]DrYury Crow Albumin/Globulin [Mass ratio] 0.9 {ratio} Normal [facility] Comment on above: Performed By: #### C MP ####[facility] [address] [address]Dr. Jean Crow ALP [Catalytic activity/Vol] 83 U/L Normal 46-116 [facility] Comment on above: Performed By: #### C MP ####[facility] [address] [address]Dr. Jean Tristin ALT [Catalytic activity/Vol] 30 U/L Normal 14-59 [facility] Comment on above: Performed By: #### C MP ####[facility] [address] [place], [place] [address]Dr. Jean Crow Anion gap [Moles/Vol] 12.6 mmol/L Normal [facility] Comment on above: Performed By: #### C MP ####[facility] [address] [place], [place] [address]Dr. Jean Crow AST [Catalytic activity/Vol] 18 U/L Normal 15-37 [facility] Comment on above: Performed By: #### C MP ####[facility] [address] [place], [place] [address]Dr. Liliaazael Tristin Bilirubin [Mass/Vol] 0.3 mg/dL Normal 0.2-1.0 [facility] Comment on above: Performed By: #### C MP ####[facility] [address] [place], [place] [address]Dr. Jean Crow Calcium [Mass/Vol] 8.3 mg/dL Critically low 8.5-10.1 [facility] Comment on above: Performed By: #### C MP ####[facility] [address] [place], [place] [address]Dr. Jean Crow Chloride [Moles/Vol] 103 mmol/L Normal 98-107 [facility] Comment on above: Performed By: #### C MP ####[facility] [address] [address]Dr. Jean Crow CO2 [Moles/Vol] 28.6 mmol/L Normal 21.0-32.0 [facility] Comment on above: Performed By: #### C MP ####[facility] [address] [address]Dr. Jean Crow Creatinine [Mass/Vol] 0.55 mg/dL Normal 0.55-1.02 [facility] Comment on above: Performed By: #### C MP ####[facility] [address] [address]Dr. Jean Crow EGFR-AF BULGARIAN >60 Normal >=60 [facility] Comment on above: Performed By: #### C MP ####[facility] [address] [address]Dr. Jean Crow EGFR-NON AF BULGARIAN >60 Normal >=60 [facility] Comment on above: Performed By: #### C MP ####[facility] [address] [address]Dr. Jean Tristin Globulin (S) [Mass/Vol] 3.3 g/dL Normal [facility] Comment on above: Performed By: #### C MP ####[facility] [address] [address]Dr. Jean Crow Glucose [Mass/Vol] 130 mg/dL Critically high 74-106 [facility] Comment on above: Performed By: #### C MP ####[facility] [address] [address]Dr. Jean Crow Potassium [Moles/Vol] 3.2 mmol/L Critically low 3.5-5.1 [facility] Comment on above: Performed By: #### C MP ####[facility] [address] [address]Dr. Jean Crow Protein [Mass/Vol] 6.3 g/dL Critically low 6.4-8.2 [facility] Comment on above: Performed By: #### C MP ####[facility] [address] [address]Dr. Jean Crow Sodium [Moles/Vol] 141 mmol/L Normal 136-145 [facility] Comment on above: Performed By: #### C MP ####[facility] [address] [place], [place] [address]QsDr. Jean Crow Urea nitrogen [Mass/Vol] 23.0 mg/dL Critically high 7.0-18.0 [facility] Comment on above: Performed By: #### C MP ####[facility] [address] [place], [place] [address]QgYury Crow Urea nitrogen/Creatinine [Mass ratio] 41.8 mg/mg Normal The [facility] Comment on above: Performed By: #### C MP ####[facility] [address] [place], [place] [address]FoDr. Jaen Corw SYMPTOMATIC COVID-19 ANTIGEN on 09-15-2022 EUA Statement SEE BELOW Normal The [facility] Comment on above: Result Comment: This test has not been FDA cleared or approved, but has been authorized by the FDA under an Emergency Use Authorization (EUA) for use by authorized laboratories certified under CLIA that meet the requirements to perform moderate or high complexity testing. This test has been authorized only for the detection of proteins from SARS-CoV-2, not for any other viruses or pathogens. The emergency use of this test is authorized for the duration of the declaration that circumstances exist justifying the authorization of emergency use of in vitro diagnostic tests for detection and/or diagnosis of Covid-19 under section 564(b)(1) of the Act, 21 U.S.C. 360bbb-3(b)(1), unless the declaration is terminated or authorization is revoked sooner. Performed By: #### C VDAGS #### [facility] [address] [address] [address] Jean Crow SARS-CoV-2 (COVID-19) RNA BRIAN+probe Ql (Unsp spec) Negative Normal NEGATIVE The [facility] Comment on above: Performed By: #### C VDAGS #### [facility] [address] [address] [address] Jean Crow TROPONIN, HIGH SENSITIVITYon 09-15-2022 HSTROP 9.2 pg/mL Normal 4.0-51.3 [facility] Comment on above: Result Comment: CUT- OFF POINTS HAVE BEEN ESTABLISHED BASED ON THE FOURTH UNIVERSAL DEFINITIONS OF MYOCARDIAL INFARCTION. THE UPPER REFERENCE LIMIT (URL) OF TROPONIN, DEFINED THE 99TH PERCENTILE OF cTnI DISTRIBUTION IN A REFERENCE POPULATION, HAS BEEN CONFIRMED THE DECISION THRESHOLD FOR MS DIAGNOSIS. Performed By: #### H STRODILSHAD, BNP #### [facility] [address] [place], [place] [address] Dr. Jean Crow XR CHEST 1 Von 09-15-2022 XR CHEST 1 V EXAM: Chest x-ray HISTORY: . SHORTNESS OF BREATH . COMPARISON: 05/03/2022 TECHNIQUE: Single view of the chest. FINDINGS: Heart is upper limits of normal in size left ventricular contour. Vascularity is unremarkable. Lungs are free of focal infiltrates. Early atherosclerotic changes of the thoracic aorta are noted. Impression: 1. Borderline cardiac enlargement. 2. No infiltrates noted. Electronically authenticated by: KARSON SCHMIDT Date: 2022-09-15 09:34 Normal The [facility] Coding Summary.on 09-11-2022 Coding Summary. [id number] G h0bWw+PGhlYWQ+ZG2TSGO yX07ofFWfuN9iO1YYSCdS SywgQVBQTElOSyIgbmFtZ G8qsLGaSWQj IC8+VN7iMUZfAgjtlPYds 9T7tCC7R18kxk1mPXbzpH A1IMClJxLokcssy4fncTw 6IDcuNmluOyBt JTEfnO76MLJ9kC41Zm10e FXkuDLct3znaHk7NtZsRB KfWPV3tXizOOofj1XsUTU pG93iwYEez7F1 EOUhwIugrPTgGqIywAS0c L7nFRxzaixtt8fprlzrQe x7nr76pAPla2V0cBT9M6U nlkC7JWNuaISa XhnwpKHFiT7zzfisk8vlr ohuHeHuAWYaSXo5MIz7TS TixEdlFfQeIH11NWS5RCO hvyVqR8DdUESu sYsaZyF8e0M8Uo6MA0TOW wygZ2RULHWUIOnxcKQ+PC 24rh75K6ZwZgoeAtx0REE uAYX3mGQ5cU2p TALcTMsot9Q9rEZ1H3Hjc bEghi7ks9jfLBUxHWidY5 5yqOYrp6W2PHEinVI9JYY deZqbDyPkbZ28 Oyc+YUOiwTefu7MkEryjh 1jeb5ccoPj8OhtzOHWhqa UviTflNDQ6q5WyEh5pIPB gcOB9oAH8lX5b InBoUnI6KZjtF163WhGlh RIjSapgW28tT0VgsZZ+PH LjRgx7OAXamVciCK6wD4A hZGRpbmctbGVm sTvgEN0yIYTsedjkIOHgz K6pTNSyI9w3BzGoApR3KW rwJ5NxBYYurzdzMi62uD3 tDdNhXsH3NJem A0KejnP5EKGysNIySQxoZ LI8J86vb6R2GWDyFFIqLZ I1jAJ9bQ5qwCzmdqvxwRZ mdDsgdmVydGlj RCfkVMxoW124MEVevTwxY kNvZGluZyBEYXRlOiAgMD MvMTQvMjAyMzwvdGQ+PHR vSGM1xKfvJEPz aEFqDXdxHs8vaSmazYwzY G3dCBCzpnilYWQvpV6jVL RmnDFrtMzuMR0xTXAzieb gt325VwGgNWA4 FAQevZObH6LoqT0cDdAbX DAcMKGkA3RcsCIpGGveY8 26TBydRaP1ZWHgzuCuS8O sLWFsaWduOiB0 b0J1Fp2Em8MoidqcJ8Jex BGbQeWqLwdxJTb9H6KmAf wvdHI+FG00LYLrPW48XQa 6RRP5nZexUMcp NJRcX1MnxW9vRsVvNPStH GRkOyc+PHRhYmxlIHdpZH RoPScxMDAlJyBzdHlsZT0 rXm1gYMEhMEOh dRymtWLsHgHko8saFTFyJ OgcYV3ggFstA0XrbWS3WH Vly5r9Xe79L48wQ6IwtJM +OZEzdUI6hTQ5 oV1iSwQsBcU5KVezB513K bXwuBYlQclfx0unh5jdpO e1FtI8NYTqvqQdfEoxJWI 8q5QiIr63J73r IHdpZHRoPSIxNSUiIHZhb Mfirq5crW0iQt1+PGNvbC U7nLO4cM1kYwPeFfD3FWs yI150DlTjsMNu Czlaq1jqk3hcjCt5NhXuX BEltmNbbJstMKC7j5LfBn 18Q3CxfHqyz0DfByk7cy2 9rIHiv5J3pQI8 I4XdLZHwlpbguSOobFfzH Z3eCDQzglsbQSFmfK2sOU LzM7u4IaDvRiD0LHjgT8C wfpG5DBLixCPo BVQucOHPzK9pfqyck1uge qbmYjXhRTSfIWl3DYt1GP ZbsXmbLmWxLFK7AuF0XXG 0hMFbvP9crNel sitgxR0nLiv+YEW8lLYio AQVYF7oImjscAP+PHRkIH F9bKfbKCpnHLVzzJ6dQVT bP7l4AkKwJqT3 AOmmJ6JcvaF5FANqyXKgA BLrwKJKaL9injntn5mmwq atZsBhBISdUGx6FWh2WAW saWduOiBsZWZ0 DiZ1YAU9iATzuB9kxFfzt jiqpR7cNnf+QmlydGggRG X3BFb2L5AlKks5OZChlQa nZT2aqMNwFNta Qc9ghEwjyQsuEG5qCMBsq achu606ZcBro7zgGGCbjK SqJUvhSUG2X19nq9S2RBA sRXByLJM2nBG8 xS3vyDghzfjvfTMvvCtxd hYejMapQWkaNBlzO576NZ XxsCotRlNqGZn8Z1JwLsc 8HAVjbLxlVU6r jBDyAPcsNe6jhYwisGdyL S3eBSExyskwv008UgJjj3 aeZWLusSPsUSitGHN0J97 og6M7PUOzYZMi STS4wQM3dU3mbYxfqfcfb GVmdDsgdmVydGljYWwtYW cuP159APDikDqeRpBtdWj 8X9OfFkz0PANm cJclVU1kqAAgTZjmTb7qf YhunPxoRR4dFFQtslpam4 58TxBfv6gdPIKczPGdDHw hTGX8C66mz7E3 MXEwWPIcXJH6dKU9fC8qx GlnbjogbGVmdDsgdmVydG zxYNakCTyeN061DOFrsHv nPlBhdGllbnQg TIizXHo2W0MtHbktqQS+P L76JNRsQY24jPWtqCQia4 pvaRa5EjUuZVMuENZ3qOu tOEprz5RzMCCb R16ztKCmi7K4IGZasDhdc PHjChOyvLR0oE8lBLupdc qox6owtcgvTgfwq6xycu5 5kI93F06iIAux ZHRoPSIzMCUiIHZhbGlnb u0wbN7nVp7+VILjrOJ8gQ A2tC8rWLTeZxU9UGylR28 9InRvcCIvPjxj e2rnq2nfrOn9JnV2OREgl cQaxDpyGPL2w4KkGc27A8 9sIHdpZHRoPSIyMCUiIHZ nnQbdfu5paD0r Ii8+TEMrfVS0aLH0gX1hV gWxGdS2FTaoA513AdIkdG NbLtreY68hQ1JwtRP+PHR oApu3PMPfnXdu XR2hxEGoESkgFc9bJLH0N tFlAdCaASetD7IpNCKbre aopwqrjGV9BSWxKJZvxX7 7Xb5ppSrbHYIr cPZFsG4btbxac9lbvtazY mPrMBXgLIk3JYf6AMVtbV saPcDhGPB0RzV0GWK5eHH qjE7qrUlbtzkg nO0qK5MfNPLexzbzRi63x K1hJtPcEhB9FNqtEuk+QU xULCBDSEVSWUwgQTwvdGQ +BAGxRKG8wOqb QAmfPZPjkF7hUAXxS2y0T cLtZkR0IPhtK2SpYRIsyj zcDs41sH9sGnXaZtK5DVt pK9NeqoP8BCWp uNHtXZthSXF2W31jy0J8B GVzMKLyGNI4aYM0mO8zhZ lnbjogbGVmdDsgdmVydGl wIPswUEtuE878 JUKxmQdsGfM9IeK0YeZ3H oQ5V1WoPor8NSFmgXinIQ 7svIEfJBhtOr7iwKvnuGx kXA1aSMVjciaa ZACpfS8kRMFeeBGngBwwA M5qDHIyhnavv213DbReRT P8DGOlbTHqG7TkiQ4yVqN zNAFjRDKeQ8Lw rPJyTPmjY817YQonQhK6I WXllfIbU7CaWFUcuScyYv U4k1S5Oy75YmNSWBLqbgu vdGQ+PHRkIHN0 rGbvNTrnRNLeuL4cYERqV 8k7SpAmRmP7DUjaY7YaBA CsnaaqGn49sS8eTqPiOiM 3CWgnR8XmfmV7 IMNjfBPuRHwzTUJ6G71qi 0K5KOGqDZHgLFX2tGS6gK 1hbGlnbjogbGVmdDsgdmV ydGljYWwtYWxp X946JWFomArbSzOvzYQxY TwvdGQ+MCRoXQQ1nFkbNZ guIFHrlQ5aMGDiD5z2DeA lZzZ6BZnoR2Fg TFCelqnsQu37oM3kOiToN sJ9ABtoH5IijbS1VZRcsC KaVSinQIJ5M48xy8W1RNJ fFCNoZPJ4sMB3 bU2rqDbgpvuvfMMrrIwfk dNzjVynHHdgXEpzO141WR BjsWajBkPyBUDtVM9yjEe vdGQ+GC92uy96 W6SrImwrTud1QGRhDGL6r YZ4qA3nFAVpNAhgn4N5aE I6J6WahaCali8ed9bgGHI vIKpuT08woSMa y2K2DHNayDD7LVWxpQkdY qLmjW30Kys+PGNvbGdyb3 YyTkmaq6rtg4jxfWq7PgY wJSIgdmFsaWdu ZXE7p2FmLf75P83zQHxnS HRoPSIzMCUiIHZhbGlnbj 4ioG0nEw7+IOBihLG4aUY 9jI9mRcZgSpU5 OBkeH704IqFfzBZsWknjl 2pwi8rmbOy7FyTwBWVgfw YnmRzyVLK5n9JpDi82R7W yoThim2ZfJrf9 sk79fMJcr1T2hVJ0I4PxB ARiokzyaMDjbHuhUI4kZZ XibmlnIJMzfU5aQRHaU0y 0OiGmZhZ6IRmr S0HubtJ5XCVfnHVlFBNzm NHUnS7csnwvy4nsogouIf IpJRVdCZa5MDb3YZQymWm rOhUmQLZ1EeI5 YPA5lKGhhO1ahWoriywsc G9wOyc+DAx2k5fjjLEkLR 0ypIX4UO90MV06xQMkz2K 8yCH3D7UtZVOv najbjojkpRY1IMBhXJIaf P11Wj0biEpkDh5gQFGwNG Q9ZYVahXTrN6FicX3bJjK wZKTrNAPgT5Bu xUYyJVpmN595BJxwEwS5T OFnpvJgH2PlJNPtnOquUn B6h5W1Ec5YSZ16IY75UU9 0xKHcb9U8iGP4 Q6AkEDHfyffkczfssZV7I XNaHUKuiY22Vg5dyQnjCi 7uJJFoAAH9VNMlbPAhB1U icK8oYhNoBUOm LDRgG1DcfJRmLKkeK138Z PjeYzT3PTShuxLeM8WhGH OniDhfQlY1k4W0Mp8PTw8 2MP11SR53sIPl o8K5eJN3N8HxOKKwhwpoo kaqgNO3AMQbAAOhzC08Fd 5bkCkkFu0aWDFkLXV9KXE pxNFcE3XhyV8k DvGjAYElKZXtI5MufWAzJ JxqL642EHcoIsQ1SNPtfz PaY8HfSFUuaAndIzM5w2Y 3Ew9NNSopzcc8 D1XnPovwuAA+EG82XFTeQ Q05dHCnmUMju5toyQr8Dh SsKRIxPCA8ePnyCJykc5N cPRWpU41alLVf c2U6 (more content not included)... Normal [facility] Family Medicine Office/Clini c Noteon 09-11-2022 Family Medicine Office/Clinic Note Chief Complaint hospital follow up for asthma attack HPI Staff Patient in office for ER follow up asthma attack Se[place] [facility] [place] for SOB and cough Medications prescribed: Bromfed, Doxycycline, Prednisone, finished the prednisone today and 2 days of doxycycline left Mamm: Due Pap: Hx of hysterectomy Colon:May 2022 Dr. Berger Review of Systems PHQ Score Initial Depression Screen Score: 1 Constitutional: no fever, no chills, no sweats, mild weakness fatigue Respiratory: mild shortness of breath, moderate cough, no orthopnea, moderate wheezing HEENT: sig. congestion and rhinits Cardiovascular: no chest pain, no palpitations, no edema Additional ROS info: Except as noted in the above Review of Systems and in the History of Present Illness all other systems have been reviewed and are negative or noncontributory. Physical Exam Vitals & Measurements HR: 76(Peripheral) RR: 18 BP: 130/84 SpO2: 96% HT: 56 in HT: 143.25 cm WT: 85.1 kg WT: 187.22 lb BMI: 41.47 General: alert, no acute distress ENMT: TM's clear, oral mucosa moist, no pharyngeal erythema, puruent rhinits iwht post nasal drip, red swollen nasal mucosa Cardiovascular: regular rate and rhythm, normal peripheral perfusion Respiratory: Lungs with tight exp wheeze and rhick exp rhonchi no rales,, respirations non labored ABD: soft non distended no organomegaly no acute changes. Extremities: no deformity, no trauma Neurological: oriented x 4, LOC appropriate for age, CN II-XII intact, motor strength equal & normal bilaterally, sensation equal & normal bilaterally, speech normal Assessment/Plan 1. Asthma with status asthmaticus in adult (J45.902: Unspecified asthma with status asthmaticus) Reviewed medicines and proper use. Will see asthma specialist tomorrow 2. Chronic sinusitis (J32.9: Chronic sinusitis, unspecified) Will restart the netti pot explained. Chenage to levofloxacin and stop the doxycycline. Preventive meeicine explained. 3. Hypothyroid (E03.9: Hypothyroidism, unspecified) Contin ue present medicines. 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 Diverticular disease Diverticulosis Dysphagia Esophageal web Hemorrhoids Hypothyroid Hypoxemia Maxillary sinusitis Moderate asthma without complication Non-insulin dependent type 2 diabetes mellitus Obesity due to excess calories Oral thrush Pulmonary embolism with acute cor pulmonale Rheumatoid arthritis involving multiple sites with positive rheumatoid factor Screen for colon cancer Weight loss, unintentional Historical Acid reflux Arthritis Asthma Change in bowel habits COVID-19 Loose stools Nausea Procedure/Surgical History EGD (esophagogastroduoden oscopy) gastric outlet reduction (05/21/2022), Colonoscopy (05/09/2021), EGD - Esophagogastroduodeno scopy (05/09/2021), Cataract extraction, Cholecystectomy, Foot repair, Hysterectomy, Knee replacement, Tonsillectomy and adenoidectomy; age 12 or over. Medications Bromfed DM oral syrup, 5 mL, Oral, QID, PRN celecoxib 200 mg Cap, 200 mg= 1 cap(s), Oral, BID cyclobenzaprine 10 mg Tab, 10 mg= 1 tab(s), Oral, TID, PRN DuoNeb 2.5 mg-0.5 mg/3 mL Soln-Inh, 3 mL, NEB, 6x/Day famotidine 20 mg Tab, 20 mg= 1 tab(s), Oral, Once a day (at bedtime) Flonase 0.05 mg/inh nasal spray, 2 spray(s), Nasal, Daily levofloxacin 500 mg Tab, 500 mg= 1 tab(s), Oral, q24hr levothyroxine 137 mcg (0.137 mg) Tab, 137 mcg= 1 tab(s), Oral, Daily omeprazole 40 mg Cap-DR, 40 mg= 1 cap(s), Oral, Daily Ozempic (1 mg dose), 1 mg, SubCutaneous, qWeek predniSONE 50 mg Tab, 50 mg= 1 tab(s), Oral, Daily ProAir RespiClick 90 mcg/inh inhalation powder, 2 puff(s), Inhalation, q4hr, PRN, 11 refills Prolia, 60 mg, SubCutaneous, q6mo Symbicort 160/4.5 inhalation aerosol with adapter, 2 puff(s), Inhalation, BID, 2 refills zafirlukast 20 mg Tab, 20 mg= 1 tab(s), Oral, BID Allergies Cefzil (Unknown) Eliquis (Unknown) Keflex (Hives) Pradaxa (Unknown) penicillin G benzathine (Hives) Social History Alcohol - Denies Alcohol Use, 10/26/2019 Current, Beer, Wine, 1-2 times per year, 05/22/2022 Employment/School - Low Risk, 05/22/2022 Exercise - Does not exercise, 05/22/2022 Home/Environment - Low Risk, 05/22/2022 Nutrition/Health - Low Risk, 05/22/2022 Sexual - No Risk, 05/22/2022 Substance Abuse - Denies Substance Abuse, 10/26/2019 Tobacco - Denies Tobacco Use, 10/26/2019 (more content not included)... Normal [facility] Comment on above: Result Comment: Elec tronically Signed By: ZIYAD HDZ, ALINE Conner\.br\Date and Time Signed: 09/11/22 16:48 EDT Auto Diffon 09-07-2022 Basophils/100 WBC (Bld) 0.4 % Normal 0.0-2.0 [facility] Comment on above: Order Comment: Order Added by Discern Expert. Performed By: #### 1 [id number], 3487617, [id number], 4989558, 0100857 #### [facility] [address] [place] [address] Basophils/Leukocyte s Auto (Bld) [Pure # fraction] 0.0 E9/L Normal 0.0-0.2 [facility] Comment on above: Order Comment: Order Added by Discern Expert. Performed By: #### 1 [id number], [id number], [id number], [id number], 3311510, 44870264, 0173652, 3406986 #### [facility] [address] [place] [address] Eosinophils/100 WBC (Bld) 0.4 % Normal 0.0-8.0 [facility] Comment on above: Order Comment: Order Added by Discern Expert. Performed By: #### 1 [id number], [id number], 3807240, 46917815, 0396554, 35285547, 5746514, [id number] #### [facility] [address] [place] [address] Eosinophils/Leukocy john paul Auto (Bld) [Pure # fraction] 0.0 E9/L Normal 0.0-0.5 [facility] Comment on above: Order Comment: Order Added by Discern Expert. Performed By: #### 1 [id number], [id number], 8207806, 95378530, 4081656, 25465847, 5743022, 8344366 #### [facility] [address] [place] [address] Lymphocytes/100 WBC (Bld) 16.3 % Normal 14.0-50.0 [facility] Comment on above: Order Comment: Order Added by Discern Expert. Performed By: #### 1 [id number], 81010547, 6777863, 28316875, 9533771, 65181565, 2977449, 6876396 #### [facility] [address] [place] [address] Lymphocytes/Leukocy john paul Auto (Bld) [Pure # fraction] 1.8 E9/L Normal 1.0-4.0 [facility] Comment on above: Order Comment: Order Added by Discern Expert. Performed By: #### 1 [id number], 94972577, 3078264, 01480898, 7004099, 76343456, 4041726, 9059849 #### [facility] [address] [place] [address] Monocytes/100 WBC (Bld) 7.3 % Normal 4.0-14.0 [facility] Comment on above: Order Comment: Order Added by Discern Expert. Performed By: #### 1 [id number], 07784189, 9943898, 66485626, 3576428, 00762838, 4408424, 3486456 #### [facility] [address] [place] [address] Monocytes/Leukocyte s Auto (Bld) [Pure # fraction] 0.8 E9/L Normal 0.2-1.0 [facility] Comment on above: Order Comment: Order Added by Discern Expert. Performed By: #### 1 [id number], [id number], 1739296, 55289987, 9066857, 93634850, 5288256, 6940624 #### [facility] Laboratory [address] [place] [address] Neutrophils/100 WBC (Bld) 75.6 % High 36.0-75.0 [facility] Comment on above: Order Comment: Order Added by Discern Expert. Performed By: #### 1 [id number], [id number], 7363190, 34896995, 1207390, 33304275, 3037464, 5973262 #### [facility] Laboratory [address] [place] [address] Neutrophils/Leukocy john paul Auto (Bld) [Pure # fraction] 8.5 E9/L High 2.0-7.5 [facility] Comment on above: Order Comment: Order Added by Discern Expert. Performed By: #### 1 [id number], 18823801, 1742395, 25605787, 6682745, 67452238, 8785320, 0733448 #### [facility] Laboratory [address] [place] [address] BMPon 09-07-2022 Creatinine [Mass/Vol] 0.6 mg/dL Normal 0.5-1.3 [facility] Comment on above: Performed By: #### 1 8738292, 33986895, 7377395, 20220372, 7821295, 61456355, 7579168, 6415202 ####[facility] [address] [place] [address] Urea nitrogen [Mass/Vol] 26 mg/dL High 5-21 [facility] Comment on above: Performed By: #### 1 9332703, 91422060, 2191195, 19179283, 9363981, 26501709, 0171996, 9442874 ####[facility] [address] [place] [address] Urea nitrogen/Creatinine [Mass ratio] 43 No Units High 10-20 [facility] Comment on above: Performed By: #### 1 4591042, 82577189, 7711789, 67206940, 4256411, 35280730, 4065135, 1163185 ####[facility] [address] [place] [address] Anion gap [Moles/Vol] 10 mmol/L Normal 6-16 [facility] Comment on above: Performed By: #### 1 4945746, 66334157, 0396511, 03032665, 9168749, 36827891, 8457334, 0174732 ####[facility] [address] [place] [address] Calcium [Mass/Vol] 8.3 mg/dL Low 8.9-11.1 [facility] Comment on above: Performed By: #### 1 4923645, 36309108, 5023186, 71601870, 8595569, 42456797, 7148449, 6325527 ####[facility] [address] [place] [address] Chloride [Moles/Vol] 104 mmol/L Normal 101-111 [facility] Comment on above: Performed By: #### 1 3228847, 31410685, 9889434, 78011626, 9201220, 56857330, 4094279, 5846959 ####[facility] [address] [place] [address] CO2 [Moles/Vol] 28 mmol/L Normal 21-31 [facility] Comment on above: Performed By: #### 1 8346764, 24686395, 0982822, 62572424, 6313252, 66812900, 1162601, 1526474 ####[facility] [address] [place] [address] Glucose [Mass/Vol] 148 mg/dL Normal 55-199 [facility] Comment on above: Result Comment: If t his glucose result represents a fasting glucose, interpretation should refer to the following reference range: 55-99 mg/dL Performed By: #### 1 3378684, 81580757, 3548667, 11483608, 7936789, 73041753, 4830397, 4318816 ####[facility] [address] [place] [address] Potassium [Moles/Vol] 3.7 mmol/L Normal 3.5-5.3 [facility] Comment on above: Performed By: #### 1 8512655, 15188075, 9891068, 46144153, 3552459, 14486117, 8317028, 5023002 ####[facility] [address] [place] [address] Sodium [Moles/Vol] 138 mmol/L Normal 135-145 [facility] Comment on above: Performed By: #### 1 5755954, 94666214, 3296346, 61036592, 7667020, 03817495, 2651855, 8233893 ####[facility] [address] [place] [address] BNPon 09-07-2022 Natriuretic peptide B (Bld) [Mass/Vol] 9 pg/mL Normal 5-80 [facility] Comment on above: Performed By: #### 1 6501150, 38654946, 9377217, 78224928, 1184901, 19473237, 5731767, 7933901 ####[facility] [address] [place] [address] CBC w/ Auto Diffon Erythrocyte distribution width (RBC) [Ratio] 15.5 % High 10.9-14.2 [facility] Comment on above: Performed By: #### 1 0778291, 19784654, 3988223, 64873476, 0373596, 22141990, 6843811, 2026739 #### [facility] [address] [place] [address] Hematocrit (Bld) [Volume fraction] 35.0 % Normal 34.0-46.0 [facility] Comment on above: Performed By: #### 1 9119752, 12778627, 4892414, 27584143, 2302658, 93292105, 5192138, 4213684 #### [facility] [address] [place] [address] Hemoglobin (Bld) [Mass/Vol] 11.3 g/dL Low 12.0-16.0 [facility] Comment on above: Performed By: #### 1 4900826, 08282976, 0475003, 40951907, 9407295, 35731140, 2363419, 1550417 #### [facility] [address] [place] [address] MCH (RBC) [Entitic mass] 27.1 pg Normal 27.0-34.0 [facility] Comment on above: Performed By: #### 1 0587983, 36784716, 5379860, 54033857, 8785910, 07086964, 3117735, 0496889 #### [facility] [address] [place] [address] MCHC (RBC) [Mass/Vol] 32.1 g/dL Normal 31.4-36.0 [facility] Comment on above: Performed By: #### 1 4115505, 13556815, 9944004, 00571965, 2879105, 44843818, 8240383, 9968014 #### [facility] Laboratory [address] [place] [address] MCV (RBC) [Entitic vol] 84.2 fL Normal 80.0-100.0 [facility] Comment on above: Performed By: #### 1 7307966, 73898456, 0028929, 29518437, 8420977, 16602336, 7272662, 6691380 #### [facility] Laboratory [address] [place] [address] Platelet mean volume (Bld) [Entitic vol] 7.5 fL Normal 6.4-10.8 [facility] Comment on above: Performed By: #### 1 0373914, 43963731, 5908420, 25377561, 7530781, 63057846, 4212787, 8258812 #### [facility] Laboratory [address] [place] [address] Platelets (Bld) [#/Vol] 252.0 E9/L Normal 150.0-500.0 [facility] Comment on above: Performed By: #### 1 9092522, 79857178, 3340383, 02927290, 5561450, 41029235, 3226922, 1625880 #### [facility] [address] [place] [address] RBC (Bld) [#/Vol] 4.2 E12/L Low 4.3-5.9 [facility] Comment on above: Performed By: #### 1 8550038, 35458779, 6637053, 97041395, 9775649, 21213173, 7080583, 7119100 #### [facility] [address] [place] [address] WBC corrected for nucl RBC Auto (Bld) [#/Vol] 11.2 E9/L High 4.0-11.0 [facility] Comment on above: Performed By: #### 1 8030999, 32933543, 5250784, 45528222, 8338523, 23443984, 9498915, 3378871 #### [facility] [address] [place] [address] CHEMISTRYOrdered By: SYSTEM SYSTEM on 09-07-2022 Albumin [Mass/Vol] 3.0 g/dL Low 3.3 - 5.0 gm/dL [facility] Albumin/Globulin [Mass ratio] 1.1 {ratio} Normal 1.1 - 2.2 [facility] ALP [Catalytic activity/Vol] 62 [iU]/d Normal 21 - 98 Int._Unit/L [facility] ALT No additional P-5'-P [Catalytic activity/Vol] 16 [iU]/d Normal 6 - 46 Int._Unit/L [facility] Anion gap [Moles/Vol] 10 mmol/L Normal 6 - 16 mEq/L [facility] AST [Catalytic activity/Vol] 19 [iU]/d Normal 5 - 43 Int._Unit/L [facility] Bilirubin [Mass/Vol] 0.4 mg/dL Normal 0.0 - 1.1 mg/dL [facility] Bilirubin.direct [Mass/Vol] mg/dL Normal 0.1 - 0.4 mg/dL [facility] Bilirubin.indirect [Mass or moles/Vol] Unable to Calculate mg/dL Invalid Interpretation Code 0.1 - 0.9 mg/dL [facility] Calcium [Mass/Vol] 8.3 mg/dL Low 8.9 - 11.1 mg/dL [facility] Chloride [Moles/Vol] 104 mmol/L Normal 101 - 111 mmol/L [facility] CO2 [Moles/Vol] 28 mmol/L Normal 21 - 31 mmol/L [facility] Creatinine [Mass/Vol] 0.6 mg/dL Normal 0.5 - 1.3 mg/dL [facility] GFR/1.73 sq M.predicted among blacks MDRD (S/P/Bld) [Vol rate/Area] mL/min/1.73 m2 Normal >=59mL/min/1.73 m2 [facility] Chem S GFR/1.73 sq M.predicted among non-blacks MDRD (S/P/Bld) [Vol rate/Area] mL/min/1.73 m2 Normal >=59mL/min/1.73 m2 [facility] Chem S Globulin (S) [Mass/Vol] 2.8 g/dL Normal 1.4 - 4.0 gm/dL [facility] Glucose [Mass/Vol] 148 mg/dL Normal 55 - 199 mg/dL [facility] Potassium [Moles/Vol] 3.7 mmol/L Normal 3.5 - 5.3 mmol/L [facility] Protein [Mass/Vol] 5.8 g/dL Low 6.0 - 7.8 gm/dL F [facility] Remisol Sodium [Moles/Vol] 138 mmol/L Normal 135 - 145 mmol/L [facility] Troponin I.cardiac [Mass/Vol] 4.60 pg/mL Low 10.10 - 27.10 pg/mL [facility] Urea nitrogen [Mass/Vol] 26 mg/dL High 5 - 21 mg/dL [facility] Urea nitrogen/Creatinine [Mass ratio] 43 mg/mg High 10 - 20 [facility] CHEMISTRYOrdered By: Korina Winter on 09-07-2022 Natriuretic peptide B (Bld) [Mass/Vol] 9 pg/mL Normal 5 - 80 pg/mL [facility] HemeManSS COAGULATIONOrdered By: Arya Winter on 09-07-2022 aPTT Coag (PPP) [Time] 24.7 s Low 25.1 - 36.5 second(s) [facility] Auto Coag INR Coag (PPP) [Relative time] 1.0 {INR} Invalid Interpretation Code [facility] Auto Coag PT Coag (PPP) [Time] 10.8 s Normal 9.4 - 12.5 second(s) [facility] Auto Coag Consent for Treatmenton 08-29 Consent for Treatment [id number]#1 .00CD:127 Normal [facility] Discharge Instructionson Discharge Instructions [id number]# 1.00CD:127 Normal [facility] ED Clinical Summaryon 2022 ED Clinical Summary [place] [id number] ED Clinical Summary Person Information Name: CAROLINA GOMEZ Cherelle/[facility] Age: 61 Years : 1960 Sex: Female Language: Turkish PCP: ALINE GUERRERO MD Marital Status: Visit Id: Visit Reason: Sinus Pain/Congestion; Shortness of breath; SOB, CONGESTION, COUGH Speciality: Acuity: 3 Enc Type: Emergency Med Service: Emergency Arrival: 09/06/2022 23:47:45 Discharge: 09/07/2022 02:01:04 LOS: 000 02:14 Checkin: 09/06/2022 23:47:45 Checkout: 09/07/2022 02:01:04 Dispo Type: Home (Routine DC) EVENTS: Event Name Event Status Request Date/Time Start Date/Time Complete Date/Time Arrive Complete 09/06/2022 23:47:45 09/06/2022 23:47:45 09/06/2022 23:47:45 Document Home Meds Request 09/06/2022 23:47:45 Triage Complete 09/06/2022 23:47:45 09/06/2022 23:56:26 09/06/2022 23:56:26 Dr Exam Complete 09/06/2022 23:49:22 09/06/2022 23:49:22 09/06/2022 23:49:22 Registration Complete 09/06/2022 23:49:22 09/06/2022 23:56:35 09/07/2022 00:09:11 EKG Complete 09/06/2022 23:49:46 09/06/2022 23:56:09 Isolation Screening Request 09/06/2022 23:56:27 Bed Assign Complete 09/06/2022 23:56:35 09/06/2022 23:56:35 09/06/2022 23:56:35 RN Exam Complete 09/06/2022 23:56:35 09/07/2022 00:33:22 09/07/2022 00:33:22 Meds Admin Complete 09/07/2022 00:08:52 09/07/2022 00:26:32 Pending Labs Complete 09/07/2022 00:08:52 09/07/2022 01:05:42 Lab Complete 09/07/2022 00:08:52 09/07/2022 01:05:42 Patient Care Complete 09/07/2022 00:08:52 09/07/2022 00:27:04 X-Ray Complete 09/07/2022 00:08:52 09/07/2022 00:09:35 09/07/2022 01:16:19 RT Request 09/07/2022 00:08:52 RT Tx/ABG Complete 09/07/2022 00:08:53 09/07/2022 00:55:38 09/07/2022 00:55:38 RT Tx/ABG Complete 09/07/2022 00:08:53 09/07/2022 00:55:24 09/07/2022 00:55:24 Reg Complete Request 09/07/2022 00:09:11 Meds Admin Complete 09/07/2022 00:09:31 09/07/2022 00:34:58 RT Tx/ABG Complete 09/07/2022 00:09:31 09/07/2022 00:55:33 09/07/2022 00:55:33 RT Tx/ABG Complete 09/07/2022 00:09:31 09/07/2022 00:55:20 09/07/2022 00:55:20 RT Tx/ABG Complete 09/07/2022 00:09:31 09/07/2022 00:55:29 09/07/2022 00:55:29 Pending Labs Complete 09/07/2022 00:32:26 09/07/2022 00:32:26 09/07/2022 00:53:51 Lab Complete 09/07/2022 00:32:26 09/07/2022 00:32:26 09/07/2022 00:53:51 Pending Labs Complete 09/07/2022 00:40:45 09/07/2022 00:40:45 09/07/2022 00:40:53 Lab Complete 09/07/2022 00:40:45 09/07/2022 00:40:45 09/07/2022 00:40:53 Wet Read Request 09/07/2022 01:16:19 Meds Admin Complete 09/07/2022 01:39:19 09/07/2022 02:00:09 Discharge Complete 09/07/2022 01:41:14 09/07/2022 02:01:09 09/07/2022 02:01:09 Transfer Complete 09/07/2022 02:01:09 09/07/2022 02:01:09 09/07/2022 02:01:09 ADDRESS: [address] [place] [id number] PHYS DOC NOTES: MEDICAL INFORMATION: Prescriptions Given: New Medications [id number], [address] [place], [place] [id number], [phone] brompheniramine/dextr omethorphan/PSE (Bromfed DM oral syrup) 5 Milliliter By Mouth 4 times a day as needed for cold symptoms. Refills: 0. doxycycline (doxycycline hyclate 100 mg Tab) 1 Tablets By Mouth every 12 hours for 7 Days. Refills: 0. predniSONE (predniSONE 50 mg Tab) 1 Tablets By Mouth every day for 5 Days. Refills: 0. Medications to Continue with No Changes Other Medications albuterol (ProAir RespiClick 90 mcg/inh inhalation powder) 2 Puffs Inhalation every 4 hours as needed for wheezing or SOB. Refills: 11. albuterol-ipratropium (DuoNeb 2.5 mg-0.5 mg/3 mL Soln-Inh) 3 Milliliter Nebulized inhalation (aerosol) 6 times a day. budesonide-formoterol (Symbicort 160/4.5 inhalation aerosol with adapter) 2 Puffs Inhalation 2 times a day. Refills: 2. celecoxib (celecoxib 200 mg Cap) 1 Capsules By Mouth 2 times a day. cyclobenzaprine (cyclobenzaprine 10 mg Tab) 1 Tablets By Mouth 3 times a day as needed for spasm. prn back pain. denosumab (Prolia) 60 Milligram Subcutaneous every 6 months. famotidine (famotidine 20 mg Tab) 1 Tablets By Mouth once a day (at bedtime) for 90 Days. Refills: 0. fluticasone nasal (Flonase 0.05 mg/inh nasal spray) 2 Sprays Nasal Inhalation every day. levothyroxine (levothyroxine 137 mcg (0.137 mg) Tab) 1 Tablets By Mouth every day. omeprazole (omeprazole 40 mg Cap-DR) 1 Capsules By Mouth every day. semaglutide (Ozempic (1 mg dose)) 1 Milligram Subcutaneous every week. Ordered by another provider.. zafirlukast (zafirlukast 20 mg Tab) 1 Tablets By Mouth 2 times a day. PATIENT EDUCATION INFORMATION: Instructions: Sinusitis, Adult, Zwrt-yi-Bbfa; Asthma, Adult, Qhcg-ir-Yyhz Follow up: With: Address: When: ALINE GUERRERO [address] [place] [phone] [facility] [place] (1) In 3 days 09/10/2022 Comments: Take the antibiotics as prescribed to completed the course you can use the Bromfed every 6 hours as needed for cough. Take the steroids once daily in the morning. Use your albuterol inhaler 2 p (more content not included)... Normal [facility] ED Note-Physicianon 09-08-19 ED Note-Physician Basic Information Time Seen: Shalom Toledo DO 09/06/2022 23:49 Chief Complaint Shortness of breath since last week and worsening. Hx of asthma. Congestion for past week that worsened today. History of Present Illness Patient is a 61-year-old female with past medical history of asthma, hypothyroidism presenting to the ED for evaluation of shortness of breath, cough. Patient states has been sick for the last week with cough, congestion, shortness of breath. Was seen and started on Levaquin which she is finishing today however is not feeling any better. Patient states she feels more short of breath than normal, denies any chest pain, nausea, vomiting, dizziness or lightheadedness. Denies any leg pain or leg swelling. Review of Systems A 10 point review of systems is negative except as noted above. Medical and Surgical History: Reviewed and noted Social history: Lives at home Tobacco: Denies Physical Exam Vitals & Measurements T: 36.6 ?C(Oral) HR: 105(Monitored) RR: 22 BP: 172/78 SpO2: 95% HT: 150 cm WT: 87.3 kg BMI: 38.8 General: Well developed, non toxic appearing, no acute distress HEENT: Head atraumatic, Mucosa moist, hearing grossly normal Neck: No JVD, tracheal deviation Cardiac: Regular rate, rhythm, no murmurs, or gallops, 2+ radial pulses Respiratory: Rhonchi, end expiratory wheezing noted on examination normal respiratory effort Abdomen: Soft non tender, no rebound or guarding, no peritoneal signs Extremities: No edema noted in the LE B/L, no tenderness to palpation Neurologic: Alert and oriented, speech clear Skin: No rashes or lesions Psych: Appropriate mood and behavior Medical Decision Making MEDICAL DECISION MAKING Number and Complexity of Problems Differential Diagnosis: [] [facility] Data External documents reviewed: [] My EKG interpretation: [] My CT interpretation: [] My X-ray interpretation: [] My Ultrasound interpretation: [] Decision rules/scores evaluated: [] Discussed with: [] Treatment and Disposition ED Course: Patient is a 61-year-old female presenting to the ED for evaluation of shortness of breath, cough, congestion. Patient nontoxic-appearing on arrival, no acute distress. Does have an expiratory wheezes noted on examination. Laboratory evaluation is obtained shows slight leukocytosis of 11.2 likely secondary to recent steroid use but is otherwise unremarkable. Chest x-ray does not reveal any focal infiltrates. Patient is given DuoNeb's in addition to Solu-Medrol on reevaluation she is feeling significantly improved. She was able to ambulate to the bathroom and back to the room remained at 100% on room air. Patient's discharged home given a prescription for Bromfed, doxycycline, prednisone. She is advised to continue using her albuterol inhaler every 4 hours. She is follow-up with her primary care doctor next 2 to 3 days. She should return to ED for any new or worsening symptoms. Shared decision making: [] Code status: [] Assessment/Plan Asthma exacerbation (J45.901: Unspecified asthma with (acute) exacerbation) Sinusitis (J32.9: Chronic sinusitis, unspecified) Orders: albuterol-ipratropium , 9 mL, Soln-Inh, Inhalation, Once, Stop date 09/07/22 0:09:00 EST, STAT, Start date 09/07/22 0:09:00 EST brompheniramine/dextr omethorphan/PSE, 5 mL, Oral, QID for cold symptoms, 200 mL, Refill(s) 0, [id number], 150, cm, 09/06/22 23:56:00 EST, Height/Length Dosing, 87.3, kg, 09/06/22 23:56:00 EST, Weight Dosing brompheniramine/dextr omethorphan/PSE, 5 mL, Syrup, Oral, Once, Stop date 09/07/22 1:38:00 EST, STAT, Start date 09/07/22 1:38:00 EST doxycycline, 100 mg = 1 tab(s), Oral, q12hr, X 7 day(s), # 14 tab(s), Refills(s) 0, Pharmacy: [facility]/pharmacy #[id number], 150, cm, 09/06/22 23:56:00 EST, Height/Length Dosing, 87.3, kg, 09/06/22 23:56:00 EST, Weight Dosing methylPREDNISolone, 125 mg = 2 mL, Injection, IV Push, Once, Stop date 09/07/22 0:08:00 EST, STAT, Start date 09/07/22 0:08:00 EST, 09/07/22 0:08:00 EST predniSONE, 50 mg = 1 tab(s), Oral, Daily, X 5 day(s), # 5 tab(s), Refills(s) 0, Pharmacy: [facility]/pharmacy #[id number], 150, cm, 09/06/22 23:56:00 EST, Height/Length Dosing, 87.3, kg, 09/06/22 23:56:00 EST, Weight Dosing Sodium Chloride 0.9% intravenous solution, 1,000 mL, Soln-IV, IV, Once, Stop date 09/07/22 0:08:00 EST, STAT, Start date 09/07/22 0:08:00 EST, Infuse over 61, minute(s) Sodium Chloride 0.9% intravenous solution, Soln-IV, Misc, Once, Stop date 09/07/22 0:17:16 EST, Physician Stop, 09/07/22 0:17:16 EST Automated Diff B-Type Natriuretic Peptide Basic Metabolic Panel CBC w/ Auto Diff Continuous Pulse Oximetry ECG 12 Lead Adult ED Cardiac Monitoring eGFR Hepatic Function Panel Oxygen Therapy PT & PTT Saline Lock Insert Troponin 0 Hr. XR Chest Single View Medications Administered Given albuterol-ipratropium Inh Alyx 3 mL UD, 9 mL, Inhalation methylPREDNISolone 125 mg preservative-free injection (SOLU-MEDROL), 125 (more content not included)... Normal [facility] Comment on above: Result Comment: Elec tronically Signed By: Shalom Toledo DO\.br\Date and Time Signed: 09/07/22 01:47 EST ED Patient Education Noteon 09-07-2022 ED Patient Education Note Infectious Disease Sinusitis, Adult Sinusitis is soreness and swelling (inflammation) of your sinuses. Sinuses are hollow spaces in the bones around your face. They are located: ? Around your eyes. ? In the middle of your forehead. ? Behind your nose. ? In your cheekbones. Your sinuses and nasal passages are lined with a fluid called mucus. Mucus drains out of your sinuses. Swelling can trap mucus in your sinuses. This lets germs (bacteria, virus, or fungus) grow, which leads to infection. Most of the time, this condition is caused by a virus. What are the causes? This condition is caused by: ? Allergies. ? Asthma. ? Germs. ? Things that block your nose or sinuses. ? Growths in the nose (nasal polyps). ? Chemicals or irritants in the air. ? Fungus (rare). What increases the risk? You are more likely to develop this condition if: ? You have a weak body defense system (immune system). ? You do a lot of swimming or diving. ? You use nasal sprays too much. ? You smoke. What are the signs or symptoms? The main symptoms of this condition are pain and a feeling of pressure around the sinuses. Other symptoms include: ? Stuffy nose (congestion). ? Runny nose (drainage). ? Swelling and warmth in the sinuses. ? Headache. ? Toothache. ? A cough that may get worse at night. ? Mucus that collects in the throat or the back of the nose (postnasal drip). ? Being unable to smell and taste. ? Being very tired (fatigue). ? A fever. ? Sore throat. ? Bad breath. How is this diagnosed? This condition is diagnosed based on: ? Your symptoms. ? Your medical history. ? A physical exam. ? Tests to find out if your condition is short-term (acute) or long-term (chronic). Your doctor may: ? Check your nose for growths (polyps). ? Check your sinuses using a tool that has a light (endoscope). ? Check for allergies or germs. ? Do imaging tests, such as an MRI or CT scan. How is this treated? Treatment for this condition depends on the cause and whether it is short-term or long-term. ? If caused by a virus, your symptoms should go away on their own within 10 days. You may be given medicines to relieve symptoms. They include: ? Medicines that shrink swollen tissue in the nose. ? Medicines that treat allergies (antihistamines). ? A spray that treats swelling of the nostrils.? ? Rinses that help get rid of thick mucus in your nose (nasal saline washes). ? If caused by bacteria, your doctor may wait to see if you will get better without treatment. You may be given antibiotic medicine if you have: ? A very bad infection. ? A weak body defense system. ? If caused by growths in the nose, you may need to have surgery. Follow these instructions at home: Medicines ? Take, use, or apply dxao-mix-zvhwgns and prescription medicines only as told by your doctor. These may include nasal sprays. ? If you were prescribed an antibiotic medicine, take it as told by your doctor. Do not stop taking the antibiotic even if you start to feel better. Hydrate and humidify ? Drink enough water to keep your pee (urine) pale yellow. ? Use a cool mist humidifier to keep the humidity level in your home above 50%. ? Breathe in steam for 10?15 minutes, 3?4 times a day, or as told by your doctor. You can do this in the bathroom while a hot shower is running. ? Try not to spend time in cool or dry air. Rest ? Rest as much as you can. ? Sleep with your head raised (elevated). ? Make sure you get enough sleep each night. General instructions ? Put a warm, moist washcloth on your face 3?4 times a day, or as often as told by your doctor. This will help with discomfort. ? Wash your hands often with soap and water. If there is no soap and water, use hand benzene worker. ? Do not smoke. Avoid being around people who are smoking (secondhand smoke). ? Keep all follow-up visits as told by your doctor. This is important. Contact a doctor if: ? You have a fever. ? Your symptoms get worse. ? Your symptoms do not get better within 10 days. Get help right away if: ? You have a very bad headache. ? You cannot stop throwing up (vomiting). ? You have very bad pain or swelling around your face or eyes. ? You have trouble seeing. ? You feel confused. ? Your neck is stiff. ? You have trouble breathing. Summary ? Sinusitis is swelling of your sinuses. Sinuses are hollow spaces in the bones around your face. ? This condition is caused by tissues in your nose that become inflamed or swollen. This traps germs. These can lead to infection. ? If you were prescribed an antibiotic medicine, take it as told by your doctor. Do not stop taking it even if you start to feel better. ? Keep all follow-up visits as told by your doctor. This is important. This information is not intended to replace advice given to you by you (more content not included)... Normal [facility] ED Patient Summaryon 023 ED Patient Summary [address] [address] Patient Discharge Instructions Person Information Name: CAROLINA GOMEZ Age: 61 Years Arrival Date: 09/06/2022 23:47:45 Discharge Diagnosis: Asthma exacerbation; Sinusitis Primary Care Physician: ALINE GUERRERO MD Provider Information Primary Provider: Shalom Toledo DO Advanced Inside Barrel Lathe Operator:None The exam and treatment you received in the Emergency Department were for an urgent problem and are not intended as complete care. It is important that you follow up with a doctor, nurse practitioner, or physician?s plant attendant or assistant operator for ongoing care. If your symptoms become worse or you do not improve as expected and you are unable to reach your usual health care provider, you should return to the Emergency Department. We are available 24 hours a day. CAROLINA GOMEZ has been given the following list of patient education materials, prescriptions and follow-up instructions: Follow-up Instructions: With: Address: When: ALINE GUERRERO [address] [place] [phone] Business (1) In 3 days 09/10/2022 Comments: Take the antibiotics as prescribed to completed the course you can use the Bromfed every 6 hours as needed for cough. Take the steroids once daily in the morning. Use your albuterol inhaler 2 puffs every 3-4 hours while you are awake for the next 2 to 3 days and you can decrease to as needed. Please follow-up with your primary care doctor next 2 to 3 days. Please return to ED for any new or worsening symptoms. In the event that this physician does not participate in your insurance network, please consult with your insurance company to find a nearby participating provider. Patient Education Materials: Sinusitis, Adult, Dcfr-mh-Tnlv; Asthma, Adult, Gekq-lf-Pvhu A MESSAGE TO ALL PATIENTS REGARDING OPIOIDS PRESCRIPTION OPIOIDS: WHAT YOU NEED TO KNOW Prescription opioids can be used to help relieve rdzqpmdt-lb-hfwoxk pain and are often prescribed following a surgery or injury, or for certain health conditions. These medications can be an important part of the treatment but also come with serious risks. It is important to work with your healthcare provider to make sure you are getting the safest, most effective care. WHAT ARE THE RISKS AND SIDE EFFECTS OF OPIOID USE? Prescription opioids carry serious risks of addiction and overdose, especially with prolonged use. An opioid overdose, often marked by slowed breathing, can cause sudden . The use of prescription opioids can have a number of side effects as well, even when taken as directed: ? Tolerance?meaning you might need to take more of the medication for the same pain relief ? Physical dependence?meaning you have symptoms of withdrawal when a medication is stopped ? Increased sensitivity to pain ? Constipation ? Nausea, vomiting, and dry mouth ? Sleepiness and dizziness ? Confusion ? Depression ? Low levels of testosterone that can result in lower sex drive, energy, and strength ? Itching and sweating RISKS ARE GREATER WITH: ? History of drug misuse, substance use disorder, or overdose ? Mental health conditions (such as depression or anxiety) ? Sleep apnea ? Older age (65 years and older) ? Avoid alcohol while taking prescription opioids. Also, unless specifically advised by your health care provider, medications to avoid include: ? Benzodiazepines (such as Xanax or Valium) ? Muscle relaxants (such as Soma or Flexeril) ? Hypnotics (such as Ambien or Lunesta) ? Other prescription opioids KNOW YOUR OPTIONS Talk to your health care provider about ways to manage your pain that don?t involve prescription opioids. Some of these options may actually work better and have fewer risks and side effects. Options may include: ? Pain relievers such as acetaminophen, ibuprofen, and naproxen ? Some medication that are also used for depression or seizures ? Physical therapy and exercise ? Cognitive behavioral therapy, a psychological, goal-directed approach, in which patients learn how to modify physical, behavioral, and emotional triggers of pain and stress. IF YOU ARE PRESCRIBED OPIOIDS FOR PAIN: ? Never take opioids in greater amounts or more often than prescribed. ? Follow up with your primary health care provider. o Work together to create a plan on how to manage your pain. o Talk about ways to help manage your pain that don?t involve prescription opioids. o Talk about any and all concerns and side effects. ? Help prevent misuse and abuse o Never sell or share prescription opioids. o Never use another person?s prescription opioids. ? Store prescription opioids in a secure place and out of reach of others (this may include visitors, children, friends, and family). ? Safely dispose of unused prescription opioids: Find your community drug t (more content not included)... Normal [facility] HEMATOLOGYOrdered By: SYSTEM SYSTEM on 09-07-2022 Basophils/100 WBC (Bld) 0.4 % Normal 0.0 - 2.0 % [facility] Basophils/Leukocyte s Auto (Bld) [Pure # fraction] 0.0 E9/L Normal 0.0 - 0.2 E9/L [facility] Eosinophils/100 WBC (Bld) 0.4 % Normal 0.0 - 8.0 % [facility] Eosinophils/Leukocy john paul Auto (Bld) [Pure # fraction] 0.0 E9/L Normal 0.0 - 0.5 E9/L [facility] Lymphocytes/100 WBC (Bld) 16.3 % Normal 14.0 - 50.0 % [facility] Lymphocytes/Leukocy john paul Auto (Bld) [Pure # fraction] 1.8 E9/L Normal 1.0 - 4.0 E9/L [facility] Monocytes/100 WBC (Bld) 7.3 % Normal 4.0 - 14.0 % [facility] Monocytes/Leukocyte s Auto (Bld) [Pure # fraction] 0.8 E9/L Normal 0.2 - 1.0 E9/L [facility] Neutrophils/100 WBC (Bld) 75.6 % High 36.0 - 75.0 % [facility] Neutrophils/Leukocy john paul Auto (Bld) [Pure # fraction] 8.5 E9/L High 2.0 - 7.5 E9/L [facility] HEMATOLOGYOrdered By: Juhi Winter on 09-07-2022 Erythrocyte distribution width (RBC) [Ratio] 15.5 % High 10.9 - 14.2 % [facility] Hematocrit (Bld) [Volume fraction] 35.0 % Normal 34.0 - 46.0 % [facility] Hemoglobin (Bld) [Mass/Vol] 11.3 g/dL Low 12.0 - 16.0 gm/dL [facility] MCH (RBC) [Entitic mass] 27.1 pg Normal 27.0 - 34.0 pg [facility] MCHC (RBC) [Mass/Vol] 32.1 g/dL Normal 31.4 - 36.0 gm/dL [facility] MCV (RBC) [Entitic vol] 84.2 fL Normal 80.0 - 100.0 fL [facility] Platelet mean volume (Bld) [Entitic vol] 7.5 fL Normal 6.4 - 10.8 fL [facility] Platelets (Bld) [#/Vol] 252.0 E9/L Normal 150.0 - 500.0 E9/L [facility] RBC (Bld) [#/Vol] 4.2 E12/L Low 4.3 - 5.9 E12/L [facility] WBC corrected for nucl RBC Auto (Bld) [#/Vol] 11.2 E9/L High 4.0 - 11.0 E9/L [facility] Hep Func Panelon 09-07-2022 Bilirubin.indirect [Mass or moles/Vol] UTC Abnormal 0.1-0.9 [facility] Comment on above: Result Comment: Resu lt verified by Discern Rule. Performed result UTC (Unable to Calculate) was sent as an Alpha code due the inability to calculate a valid numeric value. Performed By: #### 1 [id number], [id number], 8022413, 07018400, 9452498, 30573202, 8172633, 1144372 ####[facility] [address] [place] [address] Albumin [Mass/Vol] 3.0 g/dL Low 3.3-5.0 [facility] Comment on above: Performed By: #### 1 [id number], 71444399, 4146218, 38576237, 3098635, 21490578, 6343901, 6985502 ####[facility] [address] [place] [address] Albumin/Globulin (S) [Mass conc ratio] 1.1 Normal 1.1-2.2 [facility] Comment on above: Performed By: #### 1 [id number], 20840507, 9874197, 45318754, 2751280, 66990859, 3512335, 5488264 ####[facility] [address] [place] [address] ALP [Catalytic activity/Vol] 62 Int._Unit/L Normal 21-98 [facility] Comment on above: Performed By: #### 1 0902325, 71133877, 5793315, 95695713, 3783558, 01666230, 1518300, 7836780 ####[facility] [address] [place] [address] ALT No additional P-5'-P [Catalytic activity/Vol] 16 Int._Unit/L Normal 6-46 [facility] Comment on above: Performed By: #### 1 0494063, 22732687, 4595287, 04435649, 3388870, 76475890, 1329648, 3274676 ####[place] [address] [place] [id number] AST [Catalytic activity/Vol] 19 Int._Unit/L Normal 5-43 [facility] Comment on above: Performed By: #### 1 [id number], 31251823, 3613454, 19117534, 1359171, 29519981, 9308302, 9339234 ####[facility] [address] [place] [address] Bilirubin [Mass/Vol] 0.4 mg/dL Normal 0.0-1.1 [facility] Comment on above: Performed By: #### 1 0302780, 53638785, 1322810, 97069847, 2130027, 67504177, 9258554, 7366148 ####[facility] [address] [place] [id number] Bilirubin.direct [Mass/Vol] mg/dL Normal 0.1-0.4 [facility] Comment on above: Performed By: #### 1 9256898, 41921008, 6747986, 94126539, 6055868, 18587745, 9883659, 4009154 ####[facility] [address] [place] [address] Globulin (S) [Mass/Vol] 2.8 g/dL Normal 1.4-4.0 [facility] Comment on above: Performed By: #### 1 [id number], 68326588, 6030274, 90538497, 1163656, 32569092, 0400746, 2120409 ####[facility] [address] [place] [address] Protein [Mass/Vol] 5.8 g/dL Low 6.0-7.8 [facility] Comment on above: Performed By: #### 1 1544645, 84153166, 4636420, 96729555, 4613507, 79305756, 8527236, 0720869 ####[facility] [address] [place] [address] PT & PTTon 09-07-2022 aPTT Coag (PPP) [Time] 24.7 second(s) Low 25.1-36.5 [facility] Comment on above: Result Comment: Para meter 15 days - 4 weeks 1 - 5 months 6 - 11 months 1 - 5 years 6 - 10 years 11 - 17 years PTT Mean: 35.4 (27.6-45.6) Mean: 33.5 (24.8-40.7) Mean: 32.4 (25.1-40.7) Mean: 31.6 (24.0-39.2) Mean: 31.6 (26.9-38.7) Mean: 31.0 (24.6-38.4) Pediatric Reference ranges were obtained from a study by Reuben Robison et al. prepared from 1437 samples obtained at 7 different centers using the same coagulation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 Int._Unit/L [facility] Remisol Bilirubin [Mass/Vol] 1.7 mg/dL High 0.0 - 1.1 mg/dL FT Remisol Bilirubin.direct [Mass/Vol] 0.4 mg/dL Normal 0.1 - 0.4 mg/dL [facility] Remisol Bilirubin.indirect [Mass or moles/Vol] 1.3 mg/dL High 0.1 - 0.9 mg/dL [facility] Remisol Calcium [Mass/Vol] 8.5 mg/dL Low 8.9 - 11.1 mg/dL [facility] Remisol Chloride [Moles/Vol] 99 mmol/L Low 101 - 111 mmol/L [facility] Remisol CO2 [Moles/Vol] 22 mmol/L Normal 21 - 31 mmol/L [facility] Remisol Creatinine [Mass/Vol] 0.5 mg/dL Normal 0.5 - 1.3 mg/dL [facility] Remisol GFR/1.73 sq M.predicted among blacks MDRD (S/P/Bld) [Vol rate/Area] mL/min/1.73 m2 Normal >=59mL/min/1.73 m2 [facility] Chem S GFR/1.73 sq M.predicted among non-blacks MDRD (S/P/Bld) [Vol rate/Area] mL/min/1.73 m2 Normal >=59mL/min/1.73 m2 [facility] Chem S Globulin (S) [Mass/Vol] 3.3 g/dL Normal 1.4 - 4.0 gm/dL FT Remisol Glucose [Mass/Vol] 98 mg/dL Normal 55 - 199 mg/dL [facility] Remisol Lipase [Catalytic activity/Vol] 28 U/L Normal 13 - 58 unit/L [facility] Remisol Potassium [Moles/Vol] 3.6 mmol/L Normal 3.5 - 5.3 mmol/L [facility] Remisol Protein [Mass/Vol] 6.9 g/dL Normal 6.0 - 7.8 gm/dL F [facility] Remisol Sodium [Moles/Vol] 133 mmol/L Low 135 - 145 mmol/L [facility] Remisol Urea nitrogen [Mass/Vol] 15 mg/dL Normal 5 - 21 mg/dL [facility] Remisol Urea nitrogen/Creatinine [Mass ratio] 30 mg/mg High 10 - 20 [facility] Remisol CHEMISTRYOrdered By: Alesia Aragon on 05-22-2022 HbA1c (Bld) [Mass fraction] 6.1 % High <=5.9% [facility] ChemAutoSS COAGULATIONOrdered By: Arya Winter on 05-22-2022 aPTT Coag (PPP) [Time] 26.1 s Normal 25.1 - 36.5 second(s) [facility] Auto Coag INR Coag (PPP) [Relative time] 1.1 {INR} Invalid Interpretation Code [facility] Auto Coag PT Coag (PPP) [Time] 12.0 s Normal 9.4 - 12.5 second(s) [facility] Auto Coag HEMATOLOGYOrdered By: SYSTEM SYSTEM on 05-22-2022 Basophils/100 WBC (Bld) 0.4 % Normal 0.0 - 2.0 % [facility] HemeAutoSS Basophils/Leukocyte s Auto (Bld) [Pure # fraction] 0.0 E9/L Normal 0.0 - 0.2 E9/L [facility] HemeAutoSS Eosinophils/100 WBC (Bld) 0.7 % Normal 0.0 - 8.0 % [facility] HemeAutoSS Eosinophils/Leukocy john paul Auto (Bld) [Pure # fraction] 0.1 E9/L Normal 0.0 - 0.5 E9/L [facility] HemeAutoSS Lymphocytes/100 WBC (Bld) 11.7 % Low 14.0 - 50.0 % [facility] HemeAutoSS Lymphocytes/Leukocy john paul Auto (Bld) [Pure # fraction] 0.8 E9/L Low 1.0 - 4.0 E9/L [facility] HemeAutoSS Monocytes/100 WBC (Bld) 7.2 % Normal 4.0 - 14.0 % [facility] HemeAutoSS Monocytes/Leukocyte s Auto (Bld) [Pure # fraction] 0.5 E9/L Normal 0.2 - 1.0 E9/L [facility] HemeAutoSS Neutrophils/100 WBC (Bld) 80.0 % High 36.0 - 75.0 % [facility] HemeAutoSS Neutrophils/Leukocy john paul Auto (Bld) [Pure # fraction] 5.8 E9/L Normal 2.0 - 7.5 E9/L [facility] HemeAutoSS Basophils/100 WBC (Bld) 0.2 % Normal 0.0 - 2.0 % [facility] HemeAutoSS Basophils/Leukocyte s Auto (Bld) [Pure # fraction] 0.0 E9/L Normal 0.0 - 0.2 E9/L [facility] HemeAutoSS Eosinophils/100 WBC (Bld) 0.4 % Normal 0.0 - 8.0 % [facility] HemeAutoSS Eosinophils/Leukocy john paul Auto (Bld) [Pure # fraction] 0.0 E9/L Normal 0.0 - 0.5 E9/L [facility] HemeAutoSS Lymphocytes/100 WBC (Bld) 7.4 % Low 14.0 - 50.0 % [facility] HemeAutoSS Lymphocytes/Leukocy john paul Auto (Bld) [Pure # fraction] 0.8 E9/L Low 1.0 - 4.0 E9/L [facility] HemeAutoSS Monocytes/100 WBC (Bld) 7.1 % Normal 4.0 - 14.0 % [facility] HemeAutoSS Monocytes/Leukocyte s Auto (Bld) [Pure # fraction] 0.7 E9/L Normal 0.2 - 1.0 E9/L [facility] HemeAutoSS Neutrophils/100 WBC (Bld) 84.9 % High 36.0 - 75.0 % [facility] HemeAutoSS Neutrophils/Leukocy john paul Auto (Bld) [Pure # fraction] 8.8 E9/L High 2.0 - 7.5 E9/L [facility] HemeAutoSS HEMATOLOGYOrdered By: Keisha Espinal on 05-22-2022 Erythrocyte distribution width (RBC) [Ratio] 16.2 % High 10.9 - 14.2 % [facility] HemeAutoSS Hematocrit (Bld) [Volume fraction] 32.2 % Low 34.0 - 46.0 % [facility] HemeAutoSS Hemoglobin (Bld) [Mass/Vol] 11.1 g/dL Low 12.0 - 16.0 gm/dL [facility] HemeAutoSS MCH (RBC) [Entitic mass] 27.3 pg Normal 27.0 - 34.0 pg [facility] HemeAutoSS MCHC (RBC) [Mass/Vol] 34.4 g/dL Normal 31.4 - 36.0 gm/dL [facility] HemeAutoSS MCV (RBC) [Entitic vol] 79.2 fL Low 80.0 - 100.0 fL [facility] HemeAutoSS Platelet mean volume (Bld) [Entitic vol] 7.4 fL Normal 6.4 - 10.8 fL [facility] HemeAutoSS Platelets (Bld) [#/Vol] 231.0 E9/L Normal 150.0 - 500.0 E9/L [facility] HemeAutoSS RBC (Bld) [#/Vol] 4.1 E12/L Low 4.3 - 5.9 E12/L [facility] HemeAutoSS Sed Rate Automated 23 mm/h Normal 0 - 34 mm/hr [facility] HemeAutoSS WBC corrected for nucl RBC Auto (Bld) [#/Vol] 7.2 E9/L Normal 4.0 - 11.0 E9/L [facility] HemeAutoSS HEMATOLOGYOrdered By: Juhi Winter on 05-22-2022 Erythrocyte distribution width (RBC) [Ratio] 16.2 % High 10.9 - 14.2 % [facility] HemeAutoSS Hematocrit (Bld) [Volume fraction] 36.4 % Normal 34.0 - 46.0 % [facility] HemeAutoSS Hemoglobin (Bld) [Mass/Vol] 12.3 g/dL Normal 12.0 - 16.0 gm/dL [facility] HemeAutoSS MCH (RBC) [Entitic mass] 27.0 pg Normal 27.0 - 34.0 pg [facility] HemeAutoSS MCHC (RBC) [Mass/Vol] 33.8 g/dL Normal 31.4 - 36.0 gm/dL [facility] HemeAutoSS MCV (RBC) [Entitic vol] 79.9 fL Low 80.0 - 100.0 fL [facility] HemeAutoSS Platelet mean volume (Bld) [Entitic vol] 7.2 fL Normal 6.4 - 10.8 fL [facility] HemeAutoSS Platelets (Bld) [#/Vol] 218.0 E9/L Normal 150.0 - 500.0 E9/L [facility] HemeAutoSS RBC (Bld) [#/Vol] 4.6 E12/L Normal 4.3 - 5.9 E12/L [facility] HemeAutoSS WBC corrected for nucl RBC Auto (Bld) [#/Vol] 10.3 E9/L Normal 4.0 - 11.0 E9/L [facility] HemeAutoSS HEMATOLOGYOrdered By: SYSTEM SYSTEM on 05-17-2022 Basophils/100 WBC (Bld) 1.8 % Normal 0.0 - 2.0 % [facility] HemeAutoSS Basophils/Leukocyte s Auto (Bld) [Pure # fraction] 0.2 E9/L Normal 0.0 - 0.2 E9/L [facility] HemeAutoSS Eosinophils/100 WBC (Bld) 0.9 % Normal 0.0 - 8.0 % [facility] HemeAutoSS Eosinophils/Leukocy john paul Auto (Bld) [Pure # fraction] 0.1 E9/L Normal 0.0 - 0.5 E9/L [facility] HemeAutoSS Lymphocytes/100 WBC (Bld) 21.7 % Normal 14.0 - 50.0 % [facility] HemeAutoSS Lymphocytes/Leukocy john paul Auto (Bld) [Pure # fraction] 2.1 E9/L Normal 1.0 - 4.0 E9/L [facility] HemeAutoSS Monocytes/100 WBC (Bld) 6.6 % Normal 4.0 - 14.0 % [facility] HemeAutoSS Monocytes/Leukocyte s Auto (Bld) [Pure # fraction] 0.6 E9/L Normal 0.2 - 1.0 E9/L [facility] HemeAutoSS Neutrophils/100 WBC (Bld) 69.0 % Normal 36.0 - 75.0 % [facility] HemeAutoSS Neutrophils/Leukocy john paul Auto (Bld) [Pure # fraction] 6.6 E9/L Normal 2.0 - 7.5 E9/L [facility] HemeAutoSS HEMATOLOGYOrdered By: Juhi n Moy on 05-17-2022 Erythrocyte distribution width (RBC) [Ratio] 16.1 % High 10.9 - 14.2 % [facility] HemeAutoSS Hematocrit (Bld) [Volume fraction] 36.6 % Normal 34.0 - 46.0 % [facility] HemeAutoSS Hemoglobin (Bld) [Mass/Vol] 12.0 g/dL Normal 12.0 - 16.0 gm/dL [facility] HemeAutoSS MCH (RBC) [Entitic mass] 26.8 pg Low 27.0 - 34.0 pg [facility] HemeAutoSS MCHC (RBC) [Mass/Vol] 32.8 g/dL Normal 31.4 - 36.0 gm/dL [facility] HemeAutoSS MCV (RBC) [Entitic vol] 81.7 fL Normal 80.0 - 100.0 fL [facility] HemeAutoSS Platelet mean volume (Bld) [Entitic vol] 7.1 fL Normal 6.4 - 10.8 fL [facility] HemeAutoSS Platelets (Bld) [#/Vol] 297.0 E9/L Normal 150.0 - 500.0 E9/L [facility] HemeAutoSS RBC (Bld) [#/Vol] 4.5 E12/L Normal 4.3 - 5.9 E12/L [facility] HemeAutoSS WBC corrected for nucl RBC Auto (Bld) [#/Vol] 9.6 E9/L Normal 4.0 - 11.0 E9/L [facility] HemeAutoSS Comment on above: Result Comment: Slid e reviewed by AD. Covid-19 PCR ([facility])on SARS-CoV-2 (COVID-19) RNA BRIAN+probe Ql (Unsp spec) Not detected Normal NOT DETECTED [facility] Comment on above: Result Comment: When diagnostic testing is negative, the possibility of a false negative should be considered in the context of a patient's recent exposures and the presence of clinical signs and symptoms consistent with SARS-CoV-2. This test is not yet approved or cleared by the [place] FDA. When there are no FDA-approved or cleared tests available, and other criteria are met, FDA can make tests available under an emergency access mechanism called an Emergency Use Authorization (EUA). The EUA for this test is supported by the [place] Supervisor of Health and Human Service's declaration that circumstances exist to justify the emergency use of in vitro diagnostics for the detection and/or diagnosis of the virus that causes COVID-19. This EUA will remain in effect for the duration of the COVID-19 declaration justifying emergency of IVDs, unless it is terminated or revoked by the FDA (after which the test may no longer be used). Performed By: #### C [facility] ####[facility] [id number] [place], [place] [address]GjYury Jean Crow XR CHEST 1 Von 05-03-2022 XR CHEST 1 V EXAMINATION: XR CHES T 1 V HISTORY: Difficulty swallowing COMPARISON: Chest x-ray 04/09/2022 TECHNIQUE: Portable chest FINDINGS: The lung parenchyma is free of consolidation or infiltrate. No pneumothorax or pleural effusion. The cardiac, mediastinal and hilar contours are normal. The visualized osseous structures exhibit no gross abnormality. IMPRESSION: No acute cardiopulmonary abnormality. Electronically authenticated by: KARSON CHAUDHARY Date: 2022-05-03 21:16 Normal [facility] XR chest 2V*on 05-02-2022 XR chest 2V* [facility] [employer] [address] Other XR chest 2V* [facility] [employer] Other XR chest 2V* [address] [place] [address] [address] Other XR chest 2V* [place] [address] [facility] [employer] [address] Other XR chest 2V* XRay Report [employer] Other XR chest 2V* Signed [employer] Other XR chest 2V* Patient: Carolina Gomez MR#: [id number] [place] [employer] [employer] [address] Other XR chest 2V* : 1960 Acct:[id number] [employer] Other XR chest 2V* Age/Sex: 61 / F ADM Date: 05/02/22 [employer] Other XR chest 2V* Loc: XDUCLY Room: Type: [facility] [employer] Other XR chest 2V* Attending Dr: Naomie GARCIA [employer] Other XR chest 2V* Copies to: RADHA Jacob [employer] Other XR chest 2V* Ordering Provider: RADHA Jacob [employer] Other XR chest 2V* Date of Service: 05/02/22 [employer] Other XR chest 2V* XR/XR chest 2V*: COUGH [employer] Other XR chest 2V* Chest 2 views [employer] [facility] Other XR chest 2V* CLINICAL HISTORY: Productive cough and shortness of breath for one month. [employer] Other XR chest 2V* COMPARISON: Chest x-ray 04/15/2022 [employer] Other XR chest 2V* FINDINGS: [employer] Other XR chest 2V* Heart appears normal in size. Lungs are clear. No free air. Osseous structures demonstrate [employer] Other XR chest 2V* grossly stable compression deformities of the thoracic spine. Degenerative changes are also noted [employer] Other XR chest 2V* involving the shoulders with questionable left joint effusion. [employer] Other XR chest 2V* XR/XR chest 2V* [employer] Other XR chest 2V* IMPRESSION: [employer] Other XR chest 2V* NO ACUTE CARDIOPULMONARY ABNORMALITY. [employer] Other XR chest 2V* Impression dictated by: Bill Hutchison Jr., ElviaOYury05/02/2022 5:01 PM [employer] Other XR chest 2V* Dictation Location: [facility] [employer] Other XR chest 2V* Transcribed By: ALISON 05/02/22 [facility] [employer] Other XR chest 2V* Dictated By: Bill Hutchison Jr, DO 05/02/22 [facility] [employer] Other XR chest 2V* Signed By: [employer] Other XR chest 2V* 05/02/22 [facility] [employer] Other XR chest 2V*on 04-15-2022 SARS-CoV-2 (COVID-19) RNA BRIAN+probe Ql (Unsp spec) CLINICAL HISTORY: Cough and shortness of breath. COVID + 10 days ago. [employer] Other XR chest 2V* [facility] [employer] Other XR chest 2V* [facility] [employer] [address] Other XR chest 2V* [address] [facility] [address] Other XR chest 2V* [place] [address] [facility] [employer] [employer] [address] Other XR chest 2V* XRay Report [employer] Other XR chest 2V* Signed [employer] Other XR chest 2V* Patient: Carolina Gomez MR#: [id number] [place] [employer] [employer] [address] Other XR chest 2V* : 1960 Acct:[id number] [employer] Other XR chest 2V* Age/Sex: 61 / F ADM Date: 04/15/22 [employer] Other XR chest 2V* Loc: XDUCLY Room: Type: [facility] [employer] Other XR chest 2V* Attending Dr: Consuelo Rosales [employer] Other XR chest 2V* Copies to: Consuelo Rosales [employer] Other XR chest 2V* Ordering Provider: Consuelo Rosales APRN [employer] Other XR chest 2V* Date of Service: 04/15/22 [employer] Other XR chest 2V* XR/XR chest 2V*: Persistent cough [employer] Other XR chest 2V* PA AND LATERAL CHEST: N [employer] Other XR chest 2V* COMPARISON: 11/08/2021 [employer] Other XR chest 2V* There is no focal parenchymal consolidation, effusion or pneumothorax. The cardiac, hilar and [employer] Other XR chest 2V* mediastinal silhouettes are within normal limits. There is no vascular congestion. The [employer] Other XR chest 2V* visualized bony structures are osteopenic. There are compression fractures which were also seen [employer] Other XR chest 2V* previously . Mild endplate spurring and subtle dextroscoliotic curvature. There is suggestion of [employer] Other XR chest 2V* slight inferior subluxation of the left humeral head. [employer] Other XR chest 2V* XR/XR chest 2V* [employer] Other XR chest 2V* IMPRESSION: [employer] Other XR chest 2V* NO ACUTE CARDIOPULMONARY ABNORMALITY. [employer] Other XR chest 2V* Impression dictated by: Marisa Merlos M.D.04/15/2022 2:09 PM [employer] Other XR chest 2V* Dictation Location: [place] [address] [employer] Other XR chest 2V* Transcribed By: ALISON 04/15/22 [facility] [employer] Other XR chest 2V* Dictated By: Marisa Merlos MD 04/15/221406 [employer] Other XR chest 2V* Signed By: [employer] Other XR chest 2V* 04/15/22 140 [facility] Other CBC AUTO DIFFon 04-09-2022 BASO # 0.0 103/ul Normal 0.0-0.1 [facility] Comment on above: Performed By: #### C BC ####[facility] [address] [place] [address]Dr. Jean Crow Basophils/100 WBC (Bld) 0.2 % Normal 0.2-2.0 [facility] Comment on above: Performed By: #### C BC ####[facility] [address] [place], [place] [address]Dr. Jean Crow EO # 0.0 103/ul Normal 0.0-0.7 [facility] Comment on above: Performed By: #### C BC ####[facility] [address] [place], [place] [address]Dr. Jean Crow Eosinophils/100 WBC (Bld) 0.0 % Critically low 0.9-7.0 [facility] Comment on above: Performed By: #### C BC ####[facility] [address] [place], [place] [address]Dr. Jean Crow Erythrocyte distribution width (RBC) [Ratio] 14.8 % Normal 11.0-15.0 [facility] Comment on above: Performed By: #### C BC ####[facility] [address] [place] [address]Dr. Jean Crow Hematocrit (Bld) [Volume fraction] 39.6 % Normal 36.0-48.0 [facility] Comment on above: Performed By: #### C BC ####[facility] [address] [place] [address]Dr. Jean Crow Hemoglobin (Bld) [Mass/Vol] 12.6 g/dL Normal 12.0-16.0 [facility] Comment on above: Performed By: #### C BC ####[facility] [address] [place] [id number]. Liliaazael Crow IG # 0.15 10e3/ul Critically high 0.00-0.03 [facility] Comment on above: Performed By: #### C BC ####[facility] [address] [place] [id number]. Jean Crow IG % 1.5 % Critically high 0.0-0.5 The [facility] Comment on above: Performed By: #### C BC ####[facility] [address] [place] [id number]. Jean Crow LYMPH # 0.9 103/ul Critically low 1.2-3.8 The [facility] Comment on above: Performed By: #### C BC ####[facility] [address] [place] [id number]. Jean Crow Lymphocytes/100 WBC (Bld) 9.7 % Critically low 20.5-60.0 [facility] Comment on above: Performed By: #### C BC ####[facility] [address] [place] [id number]. Jean Crow MANUAL DIFF REQ NO Normal [facility] Comment on above: Performed By: #### C BC ####[facility] [address] [place] [id number]. Jean Crow MCH (RBC) [Entitic mass] 27.6 pg Normal 26.7-34.0 [facility] Comment on above: Performed By: #### C BC ####[facility] [address] [place] [id number]. Jean Crow MCHC (RBC) [Mass/Vol] 31.8 g/dL Normal 29.9-35.2 [facility] Comment on above: Performed By: #### C BC ####[facility] [address] [place] [id number]. Jean Crow MCV (RBC) [Entitic vol] 86.8 fL Normal 81.0-99.0 [facility] Comment on above: Performed By: #### C BC ####[facility] [address] [place] [id number]. Jean Tristin MONO # 0.2 103/ul Critically low 0.3-0.8 The [facility] Comment on above: Performed By: #### C BC ####[facility] [address] [place] [id number]. Jean Crow Monocytes/100 WBC (Bld) 2.1 % Normal 1.7-12.0 [facility] Comment on above: Performed By: #### C BC ####[facility] [address] [place] [id number]. Jean Crow NEUT # 8.4 103/ul Critically high 1.4-6.5 The [facility] Comment on above: Performed By: #### C BC ####[facility] [address] [place] [id number]. Jean Crow Neutrophils/100 WBC (Bld) 86.5 % Critically high 43.0-75.0 [facility] Comment on above: Performed By: #### C BC ####[facility] [address] [place] [address]Dr. Jean Crow Platelet mean volume (Bld) [Entitic vol] 9.5 fL Normal 9.5-13.5 [facility] Comment on above: Performed By: #### C BC ####[facility] [address] [place] [address]Dr. Jean Crow PLT 335 103/ul Normal 150-450 [facility] Comment on above: Performed By: #### C BC ####[facility] [address] [place] [address]Dr. Jean Crow RBC 4.56 106/ul Normal 4.20-5.40 [facility] Comment on above: Performed By: #### C BC ####[facility] [address] [place], [place] [id number]. Jean Crow WBC 9.7 103/ul Normal 4.0-11.0 [facility] Comment on above: Performed By: #### C BC ####[facility] [address] [place], [place] [address]Dr. Jean Crow CTA CHEST WO W CONon --2 022 CTA CHEST WO W CON EXAMINATION: CTA CHEST WO W CON HISTORY: SHORTNESS OF BREATH , acute asthma, elevated d-dimer COMPARISON: CTA chest 07/11/2020 TECHNIQUE: Multi-planar CT images were created with IV contrast. Axial, Coronal, and Sagittal images. Dose reduction techniques were achieved by using automated exposure control and/or adjustment of mA and/or kV according to patient size and/or use of iterative reconstruction technique. 3-D reconstruction was performed on a separate workstation. FINDINGS: VASCULATURE: No pulmonary embolism or abnormal opacity. LUNGS: No visible pulmonary disease. PLEURA: No mass, effusion, or pneumothorax. MOY: No mass or adenopathy. MEDIASTINUM: No mass or adenopathy. CARDIAC: No enlargement, pericardial effusion, or pericardial thickening. AORTA: No aneurysm or dissection. CHEST WALL: No mass or axillary adenopathy. BONES: T6 marked compression fracture. T9 moderate compression fracture. LIMITED ABDOMEN: No suspicious findings. Limited images of the upper abdomen. OTHER: Negative. IMPRESSION: 1. No pulmonary embolism or acute pulmonary infiltrates. 2. T6 marked compression fracture and T9 moderate compression fracture; age indeterminant but suspected to be subacute. (T6 has progressed since prior study and T9 is new). Electronically authenticated by: NHUNG DONG Date: 2022-04-09 14:56 Normal [facility] D-DIMERon 04-09-2022 D-DIMER 0.78 mg/L FEU Critically high <=0.59 The [facility] Comment on above: Performed By: #### C VDAGS #### [facility] [address] [place] [address] [address] Jean Crow D-DIMER COMMENTS SEE BELOW Normal The [facility] Comment on above: Result Comment: Incr eases in D-Dimer concentration observed with thromboembolic events can be variable due to localization, size, and age of the thrombus. Therefore, a thromboembolic event cannot be diagnosed with certainty on the basis of the reference range. D-Dimers may also be elevated for a variety of disorders including: advanced age, , coronary disease, cancer, liver disease, infection, inflammation, hematoma, DIC, trauma, post-surgery, diabetes, thrombolytic or anticoagulant therapy, stress, and generalized hospitalization. Performed By: #### C VDAGS #### [facility] [address] [place] [address] [address] Jean Crow PROF 14(COMP METB)on 022 Albumin [Mass/Vol] 3.7 g/dL Normal 3.4-5.0 [facility] Comment on above: Performed By: #### C VDAGS #### [facility] [address] [place] [address] Dr. Jean Crow Albumin/Globulin [Mass ratio] 1.0 {ratio} Normal [facility] Comment on above: Performed By: #### C VDAGS #### [facility] [address] [place] [address] [address] Jean Crow ALP [Catalytic activity/Vol] 88 U/L Normal 46-116 [facility] Comment on above: Performed By: #### C VDAGS #### [facility] [address] [place] [address] Dr. Jean Crow ALT [Catalytic activity/Vol] 20 U/L Normal 14-59 [facility] Comment on above: Performed By: #### C VDAGS #### [facility] [address] [place] [address] Dr. Jean Crow Anion gap [Moles/Vol] 11.9 mmol/L Normal [facility] Comment on above: Performed By: #### C VDAGS #### [facility] [address] [place] [address] Dr. Jean Crow AST [Catalytic activity/Vol] 15 U/L Normal 15-37 [facility] Comment on above: Performed By: #### C VDAGS #### [facility] [address] [place] [address] Dr. Jean Crow Bilirubin [Mass/Vol] 0.5 mg/dL Normal 0.2-1.0 [facility] Comment on above: Performed By: #### C VDAGS #### [facility] [address] [place] [address] Dr. Jean Crow Calcium [Mass/Vol] 8.8 mg/dL Normal 8.5-10.1 [facility] Comment on above: Performed By: #### C VDAGS #### [facility] [address] [place] [address] Dr. Jean Crow Chloride [Moles/Vol] 103 mmol/L Normal 98-107 [facility] Comment on above: Performed By: #### C VDAGS #### [facility] [address] [place] [address] Dr. Jean Crow CO2 [Moles/Vol] 26.7 mmol/L Normal 21.0-32.0 [facility] Comment on above: Performed By: #### C VDAGS #### [facility] [address] [place] [address] [address] Jean Crow Creatinine [Mass/Vol] 0.77 mg/dL Normal 0.55-1.02 [facility] Comment on above: Performed By: #### C VDAGS #### [facility] [address] [place] [address] Dr. Jean Crow EGFR-AF BULGARIAN >60 Normal >=60 [facility] Comment on above: Performed By: #### C VDAGS #### [facility] [address] [place] [address] [address] Jean Crow EGFR-NON AF BULGARIAN >60 Normal >=60 [facility] Comment on above: Performed By: #### C VDAGS #### [facility] [address] [place] [address] Dr. Jean Crow Globulin (S) [Mass/Vol] 3.7 g/dL Normal [facility] Comment on above: Performed By: #### C VDAGS #### [facility] [address] [place] [address] Dr. Jean Crow Glucose [Mass/Vol] 149 mg/dL Critically high 74-106 [facility] Comment on above: Performed By: #### C VDAGS #### [facility] [address] [place] [address] [address] Jean Crow Potassium [Moles/Vol] 3.6 mmol/L Normal 3.5-5.1 [facility] Comment on above: Performed By: #### C VDAGS #### [facility] [address] [place] [address] Dr. Jean Crow Protein [Mass/Vol] 7.4 g/dL Normal 6.4-8.2 [facility] Comment on above: Performed By: #### C VDAGS #### [facility] [address] [place] [address] Dr. Jean Crow Sodium [Moles/Vol] 138 mmol/L Normal 136-145 [facility] Comment on above: Performed By: #### C VDAGS #### [facility] [address] [place] [address] Dr. Jean Crow Urea nitrogen [Mass/Vol] 20.0 mg/dL Critically high 7.0-18.0 [facility] Comment on above: Performed By: #### C VDAGS #### [facility] [address] [place] [address] Dr. Jean Crow Urea nitrogen/Creatinine [Mass ratio] 26.0 mg/mg Normal [facility] Comment on above: Performed By: #### C VDAGS #### [facility] [address] [place] [address] Dr. Jean Crow TROPONIN, HIGH SENSITIVITYon 04-09-2022 HSTROP 9.0 pg/mL Normal 4.0-51.3 [facility] Comment on above: Result Comment: CUT- OFF POINTS HAVE BEEN ESTABLISHED BASED ON THE FOURTH UNIVERSAL DEFINITIONS OF MYOCARDIAL INFARCTION. THE UPPER REFERENCE LIMIT (URL) OF TROPONIN, DEFINED THE 99TH PERCENTILE OF cTnI DISTRIBUTION IN A REFERENCE POPULATION, HAS BEEN CONFIRMED THE DECISION THRESHOLD FOR MS DIAGNOSIS. Performed By: #### C VDAGS #### [facility] [address] [place] [address] Dr. Jean Crow XR CHEST 1 Von 04-09-2022 XR CHEST 1 V EXAMINATION: XR CHES T 1 V HISTORY: CHEST PAIN, UNSPECIFIED , shortness of breath COMPARISON: XR chest 12/20/2021 FINDINGS: LUNGS: No significant pulmonary parenchymal abnormalities. VASCULATURE: No increased pulmonary vasculature. PLEURA: No pneumothorax, effusion, or pleural thickening. CARDIAC: No cardiomegaly or cardiac silhouette abnormality. MEDIASTINUM: No visible mass or adenopathy. BONES: No fracture or visible bone lesion. OTHER: Negative. IMPRESSION: 1. No acute cardiopulmonary process. Electronically authenticated by: NHUNG Umana: 2022-04-09 13:51 Normal [facility] SARS-CoV-2 (COVID-19) RNA NA A+probe Ql (Resp)on 04-05-2022 SARS-CoV-2 (COVID-19) RNA BRIAN+probe Ql (Unsp spec) Positive [employer] Other BASIC METABOLIC PANELon 12-30 Anion gap [Moles/Vol] 5 mmol/L Low [facility] Calcium [Mass/Vol] 8.1 mg/dL Low [facility] Chloride [Moles/Vol] 109 mmol/L High [facility] CO2 [Moles/Vol] 27 mmol/L [facility] Creatinine [Mass/Vol] 0.57 mg/dL [facility] GFR COMMENT Average GFR for 60-6 9 years old = 85. [facility] Comment on above: Chronic Kidney disea se, GFR = <60. Kidney failure, GFR = <15. The GFR estimate is not adjusted for extreme body surface area or acute process, nor has it been validated for women or ethnic groups other than and . GFR/1.73 sq M.predicted among blacks MDRD (S/P/Bld) [Vol rate/Area] 138 mL/min/{1.73_m2} ml/min/1.73sq.m [facility] GFR/1.73 sq M.predicted among non-blacks MDRD (S/P/Bld) [Vol rate/Area] 114 mL/min/{1.73_m2} ml/min/1.73sq.m [facility] Glucose post fast [Mass/Vol] 201 mg/dL High [facility] Comment on above: NORMAL <100 mg/dL PREDIABETES 101-126 mg/dL DIABETES 126 mg/dL or higher Interpretation and review of laboratory results Abnormal [facility] Potassium [Moles/Vol] 3.9 mmol/L [facility] Sodium [Moles/Vol] 141 mmol/L [facility] Urea nitrogen [Mass/Vol] 9 mg/dL [facility] CBC, EDIF, PLATELETon 2021 ABSOLUTE BASOPHIL COUNT 0.0 10*3/uL 0.0 - 0.2 10*3/uL [facility] Basophils/100 WBC (Bld) 0.1 % 0.0 - 2.0 % [facility] Differential cell count method Nom (Bld) AUTO DIFF % [facility] Eosinophils (Bld) [#/Vol] 0.00 10*3/uL 0.0 - 0.7 10*3/uL [facility] Eosinophils/100 WBC (Bld) 0.0 % 0.0 - 11.0 % [facility] Erythrocyte distribution width (RBC) [Ratio] 15.4 % High 11.5 - 14.5 % [facility] Hematocrit (Bld) [Volume fraction] 28.9 % Low 36.0 - 48.0 % [facility] Hemoglobin (Bld) [Mass/Vol] 9.4 g/dL Low [facility] Interpretation and review of laboratory results Abnormal [facility] Lymphocytes (Bld) [#/Vol] 0.90 10*3/uL Low 1.2 - 3.4 10*3/uL [facility] Lymphocytes/100 WBC (Bld) 8.1 % Low 20.0 - 55.0 % [facility] MCH (RBC) [Entitic mass] 29.3 pg 26.0 - 35.0 PG [facility] MCHC (RBC) [Mass/Vol] 32.7 g/dL [facility] MCV (RBC) [Entitic vol] 89.6 fL [facility] Monocytes (Bld) [#/Vol] 0.4 10*3/uL 0.0 - 0.7 10*3/uL [facility] Monocytes/100 WBC (Bld) 4.2 % 0.0 - 10.0 % [facility] Neutrophils (Bld) [#/Vol] 9.3 10*3/uL High 1.4 - 6.5 10*3/uL [facility] Neutrophils/100 WBC (Bld) 87.6 % High 37.0 - 75.0 % [facility] Platelet mean volume (Bld) [Entitic vol] 7.9 fL [facility] Platelets (Bld) [#/Vol] 262 10*3/uL 130.0 - 400.0 10*3/uL [facility] RBC (Bld) [#/Vol] 3.22 10*6/uL Low 4.0 - 5.4 10*6/u L [facility] WBC (Bld) [#/Vol] 10.6 10*3/uL 3.6 - 11.0 10*3/uL [facility] GLUCOSE (POC DEVICE)on 01-24 GLUCOSE, POINT OF CARE 119 [facility] Interpretation and review of laboratory results Abnormal [facility] Operator [id number] [facility] GLUCOSE, POINT OF CARE 169 [facility] Interpretation and review of laboratory results Abnormal [facility] Operator [id number] [facility] GLUCOSE (POC DEVICE)on 01-23 GLUCOSE, POINT OF CARE 196 [facility] Interpretation and review of laboratory results Abnormal [facility] Operator [phone] [facility] GLUCOSE, POINT OF CARE 132 [facility] Interpretation and review of laboratory results Abnormal [facility] Operator [phone] [facility] NOVEL CORONAVIRUS LAB 1 - NA SOPHARYNGEALon 01-23-2022 NARRATIVE -1 4 [facility] SARS-CoV-2 (COVID-19) RNA BRIAN+probe Ql (Unsp spec) Not detected NOT DETECTED [facility] Comment on above: Negative results do not preclude SARS-CoV-2 infection and should not be used as the sole basis for treatment or other patient management decisions. Optimum specimen types and timing for peak viral levels during infections caused by SARS-CoV-2 has not been determined. The possibility of a false negative result should especially be considered if the patient's recent exposures or clinical presentation suggest that SARS-CoV-2 infection is probable, and diagnostic tests for other causes of illness (e.g., other respiratory illness) are negative. Collection of a new specimen and re-testing may be necessary if the patient is critically ill or clinically deteriorating. [facility] REPEAT ABO/RH (D) TYPINGon 0 01-23-2022 ABO and Rh group Nom (Bld ) Positive [facility] SCREEN: MRSA ONLY, NARES (IS OLATION SCREEN)on 01-23-2022 MRSA isol Org specific cx Ql (Nose) Not detected NOT DETECTED [facility] STAPHYOCOCCUS AUREUS BY PCR Not detected NOT DETECTED [facility] XR Knee - right 2 Viewson IMPRESSION: Routine postoperative changes. RADIOLOGY EXAMINATION: XR KNEE RIGHT 2 VIEWS, 01/23/2022 2:48 PM EDT HISTORY: TKA. COMPARISON: 01/11/2022. TECHNIQUE: Right knee x-ray: 2 view(s). FINDINGS: There is new right knee arthroplasty hardware. There are no acute fractures or dislocations. A soft tissue drain is noted. There are clips overlying the knee joint. There is air in the soft tissues. RADIOLOGY Maryjane, Jade Maza MD - 01/23/2022 EXAMINATION: XR KNEE RIGHT 2 VIEWS, 01/23/2022 2:48 PM EDT HISTORY: TKA. COMPARISON: 01/11/2022. TECHNIQUE: Right knee x-ray: 2 view(s). FINDINGS: There is new right knee arthroplasty hardware. There are no acute fractures or dislocations. A soft tissue drain is noted. There are clips overlying the knee joint. There is air in the soft tissues. IMPRESSION IMPRESSION: Routine postoperative changes. [facility] Radiology Study observation (narrative) [facility] XR Knee - right 2 ViewsOrder ed By: Jade Wesley on 01-23-2022 [facility] Work Phone: CREATININEon 01-09-2022 Creatinine [Mass/Vol] 0.65 mg/dL Normal 0.55-1.02 [facility] Comment on above: Performed By: #### C VDAGS #### [facility] [address] [address] [address] Jean Crow EGFR-AF BULGARIAN >60 Normal >=60 [facility] Comment on above: Performed By: #### C VDAGS #### [facility] [address] [address] [address] Jean Crow EGFR-NON AF BULGARIAN >60 Normal >=60 [facility] Comment on above: Performed By: #### C VDAGS #### [facility] [address] [place] [address] Dr. Jean Crow MRI PITUITARY WO W CONon MRI PITUITARY WO W CON EXAMINATION: MRI PITUITARY WO W CON HISTORY: Pituitary gland enlarged COMPARISON: No relevant comparison available. TECHNIQUE: A variety of imaging planes and parameters were utilized for visualization of suspected pathology. Images were performed without and with 16 ml intravenous [employer] contrast. FINDINGS: PITUITARY: Pituitary fossa is prominent. The pituitary gland appears appears peripherally displaced within normal. No visible lesion of the pituitary, infundibulum, suprasellar cistern, or cavernous sinus. CEREBRUM: No edema, hemorrhage, mass, acute infarction, or inappropriate atrophy. Mild scattered hyperintense foci are present, typical for a patient of this age, most commonly caused by small vessel ischemic changes. CEREBELLUM: No edema, hemorrhage, mass, acute infarction, or inappropriate atrophy. BRAINSTEM: No edema, hemorrhage, mass, acute infarction, or inappropriate atrophy. CSF SPACES: Ventricles, cisterns, and sulci are appropriate for age. No hydrocephalus, subarachnoid hemorrhage, or mass. SKULL: No mass or other significant visible lesion. SINUSES: Limited views demonstrate no significant mucosal thickening or fluid. ORBITS: Limited views are unremarkable. OTHER: No abnormal meningeal or parenchymal enhancement. IMPRESSION: Mild scattered white matter signal abnormality, nonspecific. Chronic small vessel ischemic changes are favored No acute infarct Prominent pituitary fossa with peripherally displaced normal appearing pituitary gland. Incidental partially empty sella versus arachnoid cyst Electronically authenticated by: KARSON GARCIA Date: 2022-01-09 21:16 Normal [facility] XR SINUSES 3 VIEWS OR GREATE Venkata 01-02-2022 XR SINUSES 3 VIEWS OR GREATER EXAMINATION: XR SINUSES 3 VIEWS OR GREATER HISTORY: Congestion of nasal sinus COMPARISON: No relevant comparison available. FINDINGS: MAXILLARY: No mucosal thickening or fluid level. ETHMOID: No mucosal thickening or fluid level. FRONTAL: No mucosal thickening or fluid level. SPHENOID: No mucosal thickening or fluid level. OTHER: Enlarged pituitary fossa, 13 mm. IMPRESSION: 1. No appreciable acute sinusitis or significant chronic sinusitis on today's radiographs. Consider CT imaging for greater diagnostic sensitivity if clinically indicated. 2. Enlarged pituitary fossa, nonspecific but suggestive of an enlarged pituitary gland/adenoma or possible arachnoid cyst. MRI of the pituitary gland should be considered for further evaluation. Electronically authenticated by: NHUNG DONG Date: 2022-01-02 07:43 Normal [facility] XR CHEST 2 Von 12-20-2021 XR CHEST 2 V EXAM: XR CHEST 2 V HISTORY: Cough EXAM: XR CHEST 2 V INDICATION: 61 years old Female Cough COMPARISON: 07/08/2020 FINDINGS: The cardiac silhouette is normal. There is no pulmonary edema. The lungs are clear. There is no pneumonia. There is no pneumothorax. There is no abnormal foreign body. IMPRESSION: There is no acute abnormality. Electronically authenticated by: JOSHUA ARZATE Date: 2021-12-20 14:10 Normal [facility] COVID Quick Testingon 2021 Result Negative [employer] Other Quick Fluon 12-15-2021 FLUAV Ab CF (S) [Titer] Negative [employer] Other FLUBV Ab CF (S) [Titer] Negative [employer] Other A1C HEMOGLOBINon 11-01-2021 HbA1c (Bld) [Mass fraction] 5.3 % [employer] Other Glucose - FINGER STICKon Glucose [Mass/Vol] 86 mg/dL [employer] Other HbA1c (Bld) [Mass fraction]o n 11-01-2021 A1C HEMOGLOBIN [place] [employer] Other MICRO OTHER TESTSOrdered By: Ainsley Mcpherson on 10-07-2021 Fecal WBC Lactoferrin Positive *ABN* (10/07/21 9:00 AM) Invalid Interpretation Code Negative [facility] [employer] CHEMISTRYOrdered By: SYSTEM SYSTEM on 10-04-2021 Albumin [Mass/Vol] 3.9 g/dL Normal 3.3 - 5.0 gm/dL [facility] Remisol Albumin/Globulin [Mass ratio] 1.2 {ratio} Normal 1.1 - 2.2 [facility] Remisol ALP [Catalytic activity/Vol] 53 [iU]/d Normal 21 - 98 Int._Unit/L [facility] Remisol ALT No additional P-5'-P [Catalytic activity/Vol] 16 [iU]/d Normal 6 - 46 Int._Unit/L [facility] Remisol Anion gap [Moles/Vol] 14 mmol/L Normal 6 - 16 mEq/L [facility] Remisol AST [Catalytic activity/Vol] 23 [iU]/d Normal 5 - 43 Int._Unit/L [facility] Remisol Bilirubin [Mass/Vol] 1.0 mg/dL Normal 0.0 - 1.1 mg/dL [facility] Remisol Calcium [Mass/Vol] 9.0 mg/dL Normal 8.9 - 11.1 mg/dL [facility] Remisol Chloride [Moles/Vol] 102 mmol/L Normal 101 - 111 mmol/L [facility] Remisol CO2 [Moles/Vol] 25 mmol/L Normal 21 - 31 mmol/L [facility] Remisol Cobalamin (Vitamin B12) [Mass/Vol] 877 pg/mL Normal 50 - 1500 pg/mL [facility] Remisol Creatinine [Mass/Vol] 0.4 mg/dL Low 0.5 - 1.3 mg/dL [facility] Remisol Ferritin [Mass/Vol] 39 ng/mL Normal 11 - 307 ng/mL [facility] Remisol Folate [Mass/Vol] 15.6 ng/mL Normal >=6.7ng/mL [facility] Re misol GFR/1.73 sq M.predicted among blacks MDRD (S/P/Bld) [Vol rate/Area] mL/min/1.73 m2 Normal >=59mL/min/1.73 m2 [facility] Chem S GFR/1.73 sq M.predicted among non-blacks MDRD (S/P/Bld) [Vol rate/Area] mL/min/1.73 m2 Normal >=59mL/min/1.73 m2 [facility] Chem S Globulin (S) [Mass/Vol] 3.3 g/dL Normal 1.4 - 4.0 gm/dL [facility] Remisol Glucose [Mass/Vol] 91 mg/dL Normal 55 - 199 mg/dL [facility] Remisol Iron [Mass/Vol] 90 ug/dL Normal 35 - 153 mcg/dL [facility] Remisol Iron binding capacity [Mass/Vol] 484 ug/dL High 250 - 400 mcg/dL [facility] Remiso l Iron saturation [Mass fraction] 19 % Low 20 - 50 % [facility] Remisol Potassium [Moles/Vol] 3.6 mmol/L Normal 3.5 - 5.3 mmol/L [facility] Remisol Protein [Mass/Vol] 7.2 g/dL Normal 6.0 - 7.8 gm/dL [facility] Remisol Sodium [Moles/Vol] 137 mmol/L Normal 135 - 145 mmol/L [facility] Remisol Transferrin [Mass/Vol] 346 mg/dL Normal 200 - 370 mg/dL [facility] Remisol Urea nitrogen [Mass/Vol] 14 mg/dL Normal 5 - 21 mg/dL [facility] Remisol Urea nitrogen/Creatinine [Mass ratio] 35 mg/mg High 10 - 20 [facility] Remisol HEMATOLOGYOrdered By: SYSTEM SYSTEM on 10-04-2021 Basophils/100 WBC (Bld) 0.5 % Normal 0.0 - 2.0 % [facility] HemeAutoSS Basophils/Leukocyte s Auto (Bld) [Pure # fraction] 0.0 E9/L Normal 0.0 - 0.2 E9/L [facility] HemeAutoSS Eosinophils/100 WBC (Bld) 3.2 % Normal 0.0 - 8.0 % [facility] HemeAutoSS Eosinophils/Leukocy john paul Auto (Bld) [Pure # fraction] 0.2 E9/L Normal 0.0 - 0.5 E9/L [facility] HemeAutoSS Lymphocytes/100 WBC (Bld) 30.6 % Normal 14.0 - 50.0 % [facility] HemeAutoSS Lymphocytes/Leukocy john paul Auto (Bld) [Pure # fraction] 1.6 E9/L Normal 1.0 - 4.0 E9/L [facility] HemeAutoSS Monocytes/100 WBC (Bld) 9.2 % Normal 4.0 - 14.0 % [facility] HemeAutoSS Monocytes/Leukocyte s Auto (Bld) [Pure # fraction] 0.5 E9/L Normal 0.2 - 1.0 E9/L [facility] HemeAutoSS Neutrophils/100 WBC (Bld) 56.5 % Normal 36.0 - 75.0 % [facility] HemeAutoSS Neutrophils/Leukocy john paul Auto (Bld) [Pure # fraction] 2.9 E9/L Normal 2.0 - 7.5 E9/L [facility] HemeAutoSS HEMATOLOGYOrdered By: Caroline gu on 10-04-2021 Erythrocyte distribution width (RBC) [Ratio] 15.7 % High 10.9 - 14.2 % [facility] HemeAutoSS Hematocrit (Bld) [Volume fraction] 35.7 % Normal 34.0 - 46.0 % [facility] HemeAutoSS Hemoglobin (Bld) [Mass/Vol] 11.8 g/dL Low 12.0 - 16.0 gm/dL [facility] HemeAutoSS MCH (RBC) [Entitic mass] 28.2 pg Normal 27.0 - 34.0 pg [facility] HemeAutoSS MCHC (RBC) [Mass/Vol] 33.1 g/dL Normal 31.4 - 36.0 gm/dL [facility] HemeAutoSS MCV (RBC) [Entitic vol] 85.3 fL Normal 80.0 - 100.0 fL [facility] HemeAutoSS Platelet mean volume (Bld) [Entitic vol] 7.9 fL Normal 6.4 - 10.8 fL [facility] HemeAutoSS Platelets (Bld) [#/Vol] 296.0 E9/L Normal 150.0 - 500.0 E9/L [facility] HemeAutoSS RBC (Bld) [#/Vol] 4.2 E12/L Low 4.3 - 5.9 E12/L [facility] HemeAutoSS Reticulocytes/100 RBC (Bld) 1.1 % Normal 0.5 - 1.5 % [facility] HemeAutoSS Sed Rate Automated 22 mm/h Normal 0 - 34 mm/hr [facility] HemeAutoSS WBC corrected for nucl RBC Auto (Bld) [#/Vol] 5.1 E9/L Normal 4.0 - 11.0 E9/L [facility] HemeAutoSS MRI Shoulder w/o Lefton 08-29 MRI Shoulder w/o Left HISTORY: Pain and range of motion since a fall. TECHNIQUE: Multiplanar multisequence MRI of the shoulder was performed without contrast. COMPARISON: None available. FINDINGS: The examination is degraded by motion artifact. There appears to be widening of the acromial clavicular joint and possible mild elevation of the distal clavicle with respect to the acromion. There appears to be near full-thickness if not full-thickness tear of the acromioclavicular ligament. The coracoclavicular ligament is intact. The acromion is flat. There is a large amount of subacromial/subdeltoi d bursal fluid extending medially to outside of the field of view. Full-thickness tear supraspinatus and infraspinatus tendons with retraction of torn fibers approximately 4.5 cm from the footprint. Full-thickness tear of the distal superior third of subscapularis centered just proximal to its attachment to the humerus with mid and inferior fibers appear to remain intact. Teres minor tendon is intact. There is moderate atrophy and fatty infiltration of supraspinatus, infraspinatus, and subscapularis muscles. Mild atrophy and fatty infiltration of the teres minor muscle. Full-thickness tear of the intra-articular long head biceps tendon. No large displaced labral tear identified. Diffuse labral degeneration/fraying. There appears to be full-thickness cartilage loss of the humeral head and glenoid with small medial humeral head osteophyte formation. Mild edema within the glenoid may be degenerative or due to bone contusion. Large glenohumeral joint effusion. IMPRESSION: Full-thickness tear supraspinatus and infraspinatus tendons with retraction of torn fibers approximately 4.5 cm from the footprint. Full-thickness tear of the distal superior third of subscapularis centered just proximal to its attachment to the humerus with mid and inferior fibers appear to remain intact. Moderate atrophy and fatty infiltration of supraspinatus, infraspinatus, and subscapularis muscles. Mild atrophy and fatty infiltration of the teres minor muscle. Suspect near full-thickness if not full-thickness tear of the acromioclavicular ligament. Moderate to advanced glenohumeral osteoarthritis. Report reported and signed by RUTHIE BURRELL on 09/13/2021 1244 Normal [facility] [employer] XR wrist RT min 3V*on 2021 XR wrist RT min 3V* [facility] [employer] Other XR wrist RT min 3V* [facility] [employer] Other XR wrist RT min 3V* [address] [place] [address] [employer] Other XR wrist RT min 3V* [place] [address] [employer] Other XR wrist RT min 3V* XRay Report [place] [employer] Other XR wrist RT min 3V* Signed [employer] Other XR wrist RT min 3V* Patient: Carolina Gomez MR#: [id number] [employer] Other XR wrist RT min 3V* : 1960 Acct:[id number] [employer] Other XR wrist RT min 3V* Age/Sex: 60 / F ADM Date: 08/28/21 [employer] Other XR wrist RT min 3V* Loc: XDUCLY Room: Type: REG CLI [employer] Other XR wrist RT min 3V* Attending Dr: Tonia Zavala [facility] [employer] Other XR wrist RT min 3V* Ordering Provider: TONIA ZAVALA [facility] [employer] Other XR wrist RT min 3V* Date of Service: 08/28/21 [employer] Other XR wrist RT min 3V* XR/XR wrist RT min 3V*: Injury of right wrist, initial encounter [employer] Other XR wrist RT min 3V* ([id number]) XR/XR shoulder LT min 2V*: Injury of left shoulder, initial encounter [employer] Other XR wrist RT min 3V* Copies to: TONIA ZAVALA [facility] [employer] Other XR wrist RT min 3V* LEFT SHOULDER - 3views right wrist 4 views. [employer] Other XR wrist RT min 3V* CLINICAL HISTORY: Fell 2 days ago and landed on right wrist and left shoulder. Pain and bruising [employer] Other XR wrist RT min 3V* palmar aspect of right wrist. [employer] Other XR wrist RT min 3V* COMPARISON: None [employer] Other XR wrist RT min 3V* FINDINGS: Left shoulder: Calcifications are seen projecting over the subacromial space and along [employer] Other XR wrist RT min 3V* the acromion. No acute bony process is seen. There is degenerative changes of the glenohumeral [employer] Other XR wrist RT min 3V* joint with flattenin g of the humeral head with underlying sclerosis possibly representing underlying [employer] 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 Visualized left lung field is clear. [employer] Other XR wrist RT min 3V* Right wrist: No foca l soft tissue abnormality. No acute bony process. [employer] Other XR wrist RT min 3V* XR/XR shoulder LT min 2V* [employer] Other XR wrist RT min 3V* IMPRESSION: [employer] Other XR wrist RT min 3V* 1. NO ACUTE BONY PROCESS. [employer] Other XR wrist RT min 3V* 2. DEGENERATIVE CHANGES OF THE GLENOHUMERAL JOINT WITH FLATTENING OF THE HUMERAL HEAD WITH [employer] Other XR wrist RT min 3V* UNDERLYING SCLEROSIS POSSIBLY REPRESENTING UNDERLYING AVASCULAR NECROSIS. [employer] Other XR wrist RT min 3V* 3. CALCIFICATIONS SEEN PROJECTING OVER THE SUBACROMIAL SPACE AND ALONG THE ACROMION WITHOUT DONOR [employer] Other XR wrist RT min 3V* SITE TO SUGGEST FRACTURE. LOOSE BODIES WITHIN THE JOINT SPACE/SYNOVIAL OSTEOCHONDROMATOSIS CANNOT [employer] Other XR wrist RT min 3V* BE EXCLUDED. [facility] [employer] Other XR wrist RT min 3V* 1. [employer] Other XR wrist RT min 3V* Impression dictated by: Bill Hutchison Jr., D.OYury08/28/2021 6:05 PM [employer] Other XR wrist RT min 3V* Dictation Location: [facility] [employer] Other XR wrist RT min 3V* Transcribed By: PWS 08/28/21 1805 [employer] Other XR wrist RT min 3V* Dictated By: Bill Hutchison Jr, DO 08/28/21 1744 [employer] Other XR wrist RT min 3V* Signed By: [employer] Other XR wrist RT min 3V* 08/28/21 1805 No [address] [employer] Other A1C HEMOGLOBINon 04-05-2021 HbA1c (Bld) [Mass fraction] 6.5 % [employer] Other Glucose - FINGER STICKon Glucose [Mass/Vol] 129 mg/dL [employer] Other HbA1c (Bld) [Mass fraction]o n 04-05-2021 A1C HEMOGLOBIN [facility] [employer] Other Eric 03-01-2021 ALT [Catalytic activity/Vol] 18 U/L Normal 7 - 45 [facility] Comment on above: Result Comment: Bibi ents treated with Sulfasalazine may generate falsely decreased results for ALT. Performed By: #### A LT #### [address] [id number] Ana 03-01-2021 AST [Catalytic activity/Vol] 14 U/L Normal 9 - 39 [facility] Comment on above: Performed By: #### A ST #### [address] [id number] CBC AND DIFFERENTIALon 03-01 % AUTOMATED IMMATURE GRAN 3.3 % High 0.0 - 0.9 [facility] Comment on above: Result Comment: Nicole ture Granulocyte Count (IG) includes promyelocytes, myelocytes and metamyelocytes but does not include bands. Percent differential counts (%) should be interpreted in the context of the absolute cell counts (cells/L). Performed By: #### C BCDF #### [address] [id number] Basophils (Bld) [#/Vol] 0.05 10*3/uL Normal 0.00 - 0.10 [facility] Comment on above: Performed By: #### C BCDF #### [address] [id number] Basophils/100 WBC (Bld) 0.3 % Normal 0.0 - 2.0 [facility] Comment on above: Performed By: #### C BCDF #### [address] [id number] Eosinophils (Bld) [#/Vol] 0.08 10*3/uL Normal 0.00 - 0.70 [facility] Comment on above: Performed By: #### C BCDF #### [address] [id number] Eosinophils/100 WBC (Bld) 0.6 % Normal 0.0 - 6.0 [facility] Comment on above: Performed By: #### C BCDF #### [address] [id number] Erythrocyte distribution width (RBC) [Ratio] 17.3 % High 11.5 - 14.5 [facility] Comment on above: Performed By: #### C BCDF #### [address] [id number] Hematocrit (Bld) [Volume fraction] 42.9 % Normal 36.0 - 46.0 [facility] Comment on above: Performed By: #### C BCDF #### [address] [id number] Hemoglobin (Bld) [Mass/Vol] 12.8 g/dL Normal 12.0 - 16.0 [facility] Comment on above: Performed By: #### C BCDF #### [address] [id number] Lymphocytes (Bld) [#/Vol] 2.48 10*3/uL Normal 1.20 - 4.80 [facility] Comment on above: Performed By: #### C BCDF #### [address] [id number] Lymphocytes/100 WBC (Bld) 17.1 % Normal 13.0 - 44.0 [facility] Comment on above: Performed By: #### C BCDF #### [address] [id number] MCHC (RBC) [Mass/Vol] 29.8 g/dL Low 32.0 - 36.0 [facility] Comment on above: Performed By: #### C BCDF #### [address] [id number] MCV (RBC) [Entitic vol] 96 fL Normal 80 - 100 [facility] Comment on above: Performed By: #### C BCDF #### [address] [id number] Monocytes (Bld) [#/Vol] 0.68 10*3/uL Normal 0.10 - 1.00 [facility] Comment on above: Performed By: #### C BCDF #### [address] [id number] Monocytes/100 WBC (Bld) 4.7 % Normal 2.0 - 10.0 [facility] Comment on above: Performed By: #### C BCDF #### [address] [id number] Neutrophils (Bld) [#/Vol] 10.76 10*3/uL High 1.20 - 7.70 [facility] Comment on above: Performed By: #### C BCDF #### [address] [id number] Neutrophils/100 WBC (Bld) 74.0 % Normal 40.0 - 80.0 [facility] Comment on above: Performed By: #### C BCDF #### [address] [id number] Platelets (Bld) [#/Vol] 319 10*3/uL Normal 150 - 450 [facility] Comment on above: Performed By: #### C BCDF #### [address] [id number] RBC 4.49 x10E12/L Normal 4.00 - 5.20 [facility] Comment on above: Performed By: #### C BCDF #### [address] [id number] WBC (Bld) [#/Vol] 14.5 10*3/uL High 4.4 - 11.3 [facility] Comment on above: Performed By: #### C BCDF #### [address] [id number] CREATININEon 03-01-2021 Creatinine [Mass/Vol] 0.81 mg/dL Normal 0.50 - 1.05 [facility] Comment on above: Performed By: #### C REAT #### [address] [id number] GFR- AM. >60 Normal >60 [facility] Comment on above: Result Comment: CALC ULATIONS OF ESTIMATED GFR ARE PERFORMED USING THE MDRD STUDY EQUATION FOR THE IDMS-TRACEABLE CREATININE METHODS. CLIN CHEM 2007;53:766-72 Performed By: #### C REAT #### [address] [id number] GFR-NON AM. >60 Normal >60 [facility] Comment on above: Performed By: #### C REAT #### [address] [id number] SEDIMENTATION RATE, ERYTHROC YTEon 03-01-2021 SEDIMENTATION RATE, ERYTHROCYTE 24 mm/h High 0 - 20 [facility] Comment on above: Performed By: #### E SRWS #### [address] [id number] Lipid Panelon 2020 Cholesterol [Mass/Vol] 191 mg/dL [employer] Other Cholesterol in HDL [Mass/Vol] 40 mg/dL [employer] Other Cholesterol in LDL Elph Qn 129.8 [employer] Other Cholesterol.total/C holesterol in HDL [Mass ratio] 4.8 {ratio} [employer] Other Lipid Panel 106 [employer] Other Lipid Panel 21.2 [employer] Other C-REACTIVE PROTEINon 021 C-REACTIVE PROTEIN 8.32 mg/dL Abnormal [facility] Comment on above: Result Comment: REF VALUE < 1.00 Performed By: #### C RP #### [address] [id number] SEDIMENTATION RATE, ERYTHROC YTEon 08-26-2020 SEDIMENTATION RATE, ERYTHROCYTE 38 mm/h High 0 - 20 [facility] Comment on above: Performed By: #### E SRWS #### [address] [id number] URIC ACIDon 08-26-2020 Urate [Mass/Vol] 2.4 mg/dL Normal 2.3 - 6.7 [facility] Comment on above: Result Comment: Carmella puncture immediately after or during the administration of Metamizole may lead to falsely low results. Testing should be performed immediately prior to Metamizole dosing. Performed By: #### U EMILY #### [address] [id number] POC Glucoseon 05-16-2017 Glucose mass conc 81 mg/dL Invalid Interpretation Code [facility] Work Phone: Interpretation and review of laboratory results Normal Invalid Interpretation Code [facility] Work Phone: Glucose mass conc 81 mg/dL Invalid Interpretation Code 65 - 99 mg/dL [facility] Interpretation and review of laboratory results Normal Invalid Interpretation Code [facility] NM MYOCARDIAL PERFUSION MULT I SPECTon 05-14-2017 NM MYOCARDIAL PERFUSION MULTI SPECT Nuclear Report Patient: MATT Manning Med Rec#: [id number] (Age): 1960(56y)Accoun t#: [id number] Height: 149.9(cm)/58(inStudy Date: 05/14/2017 Weight: 90.9(kg)/200(lbRoom#: BSA: 1.85 Type: Outpatient Loc: CILSex: F Indications: -Abnormal ECG -Pre-op Cardiovascular Exam ICD-10 Diagnosis Codes: -R94.31 Abnormal electrocardiogram [ECG] [EKG]Nuclear Cardiology Conclusion:Probably normal exercise myocardial perfusion with Tc-99m sestamibiimaging. Conclusions :Baseline EKG NSR. With exercise, no diagnostic EKG changes. Poorexercise capacity. Negative, adequate exerciseelectrocardio gram.Probably normal LV perfusion.Mild fixed decrease inanterior wall uptake with normal wall motion consistent with likelybreast attenuation artifactGeneral History :- Allergic to: Keflex,Pcn - Abnormal EKG - Diabetes - Dizziness -Family history of CAD - Intraoperative cardiac assessment - Other: nausea Medications :- see med recon in [facility] Exercise Protocol: Fair Total Exercise TimeThe patient exercised for a total of 03:04 min using the Standard Bruceexercise protocol, achieving stage 2 and a max METs of 4.6. Maximumheart rate was 141 bpm, . Exercise functional capacity was fair. Baseline ECG:Sinus tachycardia. Normal repolarization. Stress ECG :Sinus tachycardia. Ventricular premature contractions. ST segmentresponse to stress was normal. Recovery ECG:Normal sinus rhythm. Ventricular premature contractions. ST segmentresponse during recovery was normal. Hemodynamics REST STRESS RECOVERY SBP 134 mmHg 121 mmHg 122 mmHg DBP 78 mmHg 97 mmHg 76 mmHg HR 102 bpm 141 bpm 95 bpm %MPHR 86 % Imaging Protocol:This was a gated SPECT myocardial perfusion imaging study. A one dayrest-stress imaging protocol was followed using Tc-99m sestamibi(Cardiolite) injected intravenously. For the rest portion of the study,8 mCi of the radiopharmaceutical was administered at 05/14/201707:05:00. Rest imaging was performed at 08:05:00. For the stressportion of the study, 25 mCi was administered at 05/14/2017 08:45:00. Stress imaging was performed at 10:00:00. Perfusion Interpretation:TID Ratio 0.86. Perfusion at stress and rest conditions was normal. Wall Motion Interpretation:The patient's calculated post stress LVEF was 74%. The patient's enddiastolic volume was 61ml. The patient's end systolic volume was 16ml. Gated imaging under post-stress conditions demonstrated normal wallmotion. Nuclear Doctor Interpreted Study and Electronically signed at 05/14/201711:03:52 by: Silvana Collazo M.D.Dictated by: SILVANA COLLAZO on SatMay 14, 2017 11:03:52 AM ESTTranscribed by: SILVANA COLLAZO on SatMay 14, 2017 11:03:52 AM ESTFinalized by: SILVANA COLLAZO on SatMay 14, 2017 11:03:52 AM EST Normal [facility] Comment on above: Order Comment: Reaso n for exam?:pre op, abn ekgInjury/Trauma or Illness?:Illness/OtherHow long have you had these symptoms (acute/chronic)?:UnknownType of Exam?:UnknownAdditional signs and symptoms?:dizziness,nausea,family hx,dm NM Myocardial Perfusion Mult iple SPECTon 05-14-2017 NM Myocardial Perfusion Multiple SPECT Nuclear Report Patient: MATT Manning Med Rec#: [id number] (Age): 1960(56y) Height: 149.9(cm)/58(in Study Date: 05/14/2017 Weight: 90.9(kg)/200(lb Room#: BSA: 1.85 Type: Outpatient Loc: [facility] Sex: F Indications: -Abnormal ECG -Pre-op Cardiovascular Exam ICD-10 Diagnosis Codes: -R94.31 Abnormal electrocardiogram [ECG] [EKG] Nuclear Cardiology Conclusion: Probably normal exercise myocardial perfusion with Tc-99m sestamibi imaging. Conclusions : Baseline EKG NSR. With exercise, no diagnostic EKG changes. Poor exercise capacity. Negative, adequate exercise electrocardiogram.Pro bably normal LV perfusion.Mild fixed decrease in anterior wall uptake with normal wall motion consistent with likely breast attenuation artifact General History : - Allergic to: Keflex,Pcn - Abnormal EKG - Diabetes - Dizziness - Family history of CAD - Intraoperative cardiac assessment - Other: nausea Medications : - see med [facility] in [facility] Exercise Protocol: Fair Total Exercise Time The patient exercised for a total of 03:04 min using the Standard Ant exercise protocol, achieving stage 2 and a max METs of 4.6. Maximum heart rate was 141 bpm, . Exercise functional capacity was fair. Baseline ECG: Sinus tachycardia. Normal repolarization. Stress ECG : Sinus tachycardia. Ventricular premature contractions. ST segment response to stress was normal. Recovery ECG: Normal sinus rhythm. Ventricular premature contractions. ST segment response during recovery was normal. Hemodynamics REST STRESS RECOVERY SBP 134 mmHg 121 mmHg 122 mmHg DBP 78 mmHg 97 mmHg 76 mmHg HR 102 bpm 141 bpm 95 bpm %MPHR 86 % Imaging Protocol: This was a gated SPECT myocardial perfusion imaging study. A one day rest-stress imaging protocol was followed using Tc-99m sestamibi (Cardiolite) injected intravenously. For the rest portion of the study, 8 mCi of the radiopharmaceutical was administered at 05/14/2017 07:05:00. Rest imaging was performed at 08:05:00. For the stress portion of the study, 25 mCi was administered at 05/14/2017 08:45:00. Stress imaging was performed at 10:00:00. Perfusion Interpretation: TID Ratio 0.86. Perfusion at stress and rest conditions was normal. Wall Motion Interpretation: The patient's calculated post stress LVEF was 74%. The patient's end diastolic volume was 61ml. The patient's end systolic volume was 16ml. Gated imaging under post-stress conditions demonstrated normal wall motion. Nuclear Doctor Interpreted Study and Electronically signed at 05/14/2017 11:03:52 by: Silvana Collazo M.D. Invalid Interpretation Code [facility] NM Myocardial Perfusion Multiple SPECT Interface, Rad In Heartlab Xper Echopacs - 05/14/2017 11:05 AM EST Nuclear Report Patient: MATT Manning [facility] Rec#: [id number] (Age): 1960(56y) Height: 149.9(cm)/58(in Study Date: 05/14/2017 Weight: 90.9(kg)/200(lb Room#: BSA: 1.85 Type: Outpatient Loc: CIL Sex: F Indications: -Abnormal ECG -Pre-op Cardiovascular Exam ICD-10 Diagnosis Codes: -R94.31 Abnormal electrocardiogram [ECG] [EKG] Nuclear Cardiology Conclusion: Probably normal exercise myocardial perfusion with Tc-99m sestamibi imaging. Conclusions : Baseline EKG NSR. With exercise, no diagnostic EKG changes. Poor exercise capacity. Negative, adequate exercise electrocardiogram.Pro bably normal LV perfusion.Mild fixed decrease in anterior wall uptake with normal wall motion consistent with likely breast attenuation artifact General History : - Allergic to: Keflex,Pcn - Abnormal EKG - Diabetes - Dizziness - Family history of CAD - Intraoperative cardiac assessment - Other: nausea Medications : - [facility] Exercise Protocol: Fair Total Exercise Time The patient exercised for a total of 03:04 min using the Standard Ant exercise protocol, achieving stage 2 and a max METs of 4.6. Maximum heart rate was 141 bpm, . Exercise functional capacity was fair. Baseline ECG: Sinus tachycardia. Normal repolarization. Stress ECG : Sinus tachycardia. Ventricular premature contractions. ST segment response to stress was normal. Recovery ECG: Normal sinus rhythm. Ventricular premature contractions. ST segment response during recovery was normal. Hemodynamics REST STRESS RECOVERY SBP 134 mmHg 121 mmHg 122 mmHg DBP 78 mmHg 97 mmHg 76 mmHg HR 102 bpm 141 bpm 95 bpm %MPHR 86 % Imaging Protocol: This was a gated SPECT myocardial perfusion imaging study. A one day rest-stress imaging protocol was followed using Tc-99m sestamibi (Cardiolite) injected intravenously. For the rest portion of the study, 8 mCi of the radiopharmaceutical was administered at 05/14/2017 07:05:00. Rest imaging was performed at 08:05:00. For the stress portion of the study, 25 mCi was administered at 05/14/2017 08:45:00. Stress imaging was performed at 10:00:00. Perfusion Interpretation: TID Ratio 0.86. Perfusion at stress and rest conditions was normal. Wall Motion Interpretation: The patient's calculated post stress LVEF was 74%. The patient's end diastolic volume was 61ml. The patient's end systolic volume was 16ml. Gated imaging under post-stress conditions demonstrated normal wall motion. Nuclear Doctor Interpreted Study and Electronically signed at 05/14/2017 11:03:52 by: Silvana Collazo M.D. Invalid Interpretation Code [facility] Basic Metabolic Panelon - Anion gap 8 mmol/L Low 10 - 20 mmol/L [facility] Bicarbonate (HCO3) 32 mmol/L Invalid Interpretation Code 22 - 34 mmol/L [facility] BUN/Creatinine Ratio 25.0 mg/mg High 10.0 - 20.0 [facility] Calcium 9.4 mg/dL Invalid Interpretation Code 8.4 - 10.2 mg/dL [facility] Chloride 103 mmol/L Invalid Interpretation Code 98 - 108 mmol/L [facility] Creatinine 0.64 mg/dL Invalid Interpretation Code 0.4 - 1.1 mg/dL [facility] eGFR (non-black) The eGFR should be used for monitoring renal function only and not for medication dosing. Invalid Interpretation Code [facility] eGFR (non-black) 99 mL/min/{1.73_m2} Invalid Interpretation Code >=60 [facility] Glucose mass conc 96 mg/dL Invalid Interpretation Code 65 - 99 mg/dL [facility] Interpretation and review of laboratory results Abnormal Invalid Interpretation Code [facility] Potassium molar conc 4.1 mmol/L Invalid Interpretation Code 3.5 - 5.1 mmol/L [facility] Sodium 139 mmol/L Invalid Interpretation Code 135 - 145 mmol/L [facility] Urea nitrogen 16 mg/dL Invalid Interpretation Code 8 - 25 mg/dL [facility] CBC Auto Differentialon 05-01 Basophils Auto #/vol (Bld) 0.03 K/mcL Invalid Interpretation Code 0.00 - 0.30 [facility] Basophils/100 WBC Auto (Bld) 0.4 % Invalid Interpretation Code [facility] Eosinophils 0.20 K/mcL Invalid Interpretation Code 0.00 - 0.50 [facility] Eosinophils/100 leukocytes 2.5 % Invalid Interpretation Code [facility] Erythrocyte distribution width Auto Entitic volume (RBC) 14.5 % Invalid Interpretation Code 11.6 - 14.8 % [facility] Erythrocytes (RBC) 4.77 M/mcL Invalid Interpretation Code 4.00 - 5.20 [facility] Hematocrit (HCT) 42.3 % Invalid Interpretation Code 36 - 46 % [facility] Hemoglobin mass conc (Bld) 13.9 g/dL Invalid Interpretation Code 12 - 16 g/dL [facility] Lymphocytes 2.46 K/mcL Invalid Interpretation Code 0.90 - 4.00 [facility] Lymphocytes/100 leukocytes 31.1 % Invalid Interpretation Code [facility] MCH 29.1 pg Invalid Interpretation Code 26 - 34 pg [facility] MCHC mass conc (RBC) 32.9 g/dL Invalid Interpretation Code 31 - 37 g/dL [facility] MCV 88.7 fL Invalid Interpretation Code 80 - 100 fL [facility] Monocytes 0.39 K/mcL Invalid Interpretation Code 0.30 - 0.90 [facility] Monocytes/100 leukocytes 4.9 % Invalid Interpretation Code [facility] Neutrophils 4.82 K/mcL Invalid Interpretation Code 1.70 - 7.00 [facility] Neutrophils/100 WBC Auto (Bld) 61.1 % Invalid Interpretation Code [facility] Nucleated erythrocytes 0.00 K/mcL Invalid Interpretation Code 0.00 - 0.00 [facility] Nucleated erythrocytes/100 erythrocytes 0.0 % Invalid Interpretation Code [facility] Platelet mean volume (PMV) 10.0 fL Invalid Interpretation Code 9 - 15.5 fL [facility] Platelets 219 K/mcL Invalid Interpretation Code 150 - 400 [facility] WBC (Leukocytes) 7.90 K/mcL Invalid Interpretation Code 4.50 - 11.00 [facility] CBC and Differentialon 05-13 Creatinine The following orders were created for panel order CBC and Differential. Procedure Abnormality Status --------- ------ CBC Auto Differential[[id number]] Final result Please view results for these tests on the individual orders. Invalid Interpretation Code [facility] Work Phone: ECG 12 Leadon 05-13-2017 Atrial Rate 80 BPM Invalid Interpretation Code [id number] PAT P [place] 50 degrees Invalid Interpretation Code [id number] PAT P-R Interval 152 ms Invalid Interpretation Code [id number] PAT Q-T Interval 376 ms Invalid Interpretation Code [id number] PAT QRS Duration 88 ms Invalid Interpretation Code [id number] PAT QTC Calculation (Bezet) 433 ms Invalid Interpretation Code [id number] PAT R [place] 3 degrees Invalid Interpretation Code [id number] PAT T [place] 165 degrees Invalid Interpretation Code [id number] PAT Ventricular Rate 80 BPM Invalid Interpretation Code [id number] PAT ECG 12 Lead Normal sinus rhythm Possible Left atrial enlargement T wave abnormality, consider anterolateral ischemia Abnormal ECG No previous ECGs available Confirmed by ROSA LAZO D.O. ([id number]) on 05/13/2017 11:26:14 AM Invalid Interpretation Code [id number] PAT Vital Signs Date Time Vital Sign Value Performing Clinician Facility 02-20-2023 14:49-0400 Body height 149.9 cm Medardo Vuong [employer] Work Phone: [employer] 02-20-2023 14:49-0400 Body mass index (BMI) [Ratio] 34.95 kg/m2 Medardo Vuong [employer] Work Phone: [employer] 02-20-2023 14:49-0400 Body temperature 98.6 [degF] Medardo Vuong [employer] Work Phone: [facility] [employer] [facility] 02-20-2023 14:49-0400 Body weight 78.5 kg Medardo CASTILLO Work Phone: [facility] [employer] [facility] 12-05-2022 15:33-0400 Blood Pressure Location Teodora Ott [facility] 12-05-2022 15:33-0400 Body temperature 98.06 [degF] Teodora Ott [facility] 12-05-2022 15:33-0400 Diastolic blood pressure 82 mm[Hg] Teodora Ott [facility] 12-05-2022 15:33-0400 Heart rate 81 /min Teodora Ott [facility] 12-05-2022 15:33-0400 Systolic blood pressure 126 mm[Hg] Teodora Ott [facility] 10-05-2022 19:05-0400 Body height 149.86 cm Naomie Berry Other [employer] Other 10-05-2022 19:05-0400 Body mass index (BMI) [Ratio] 39.99 kg/m2 Naomie Berry Other [employer] Other 10-05-2022 19:05-0400 Body temperature 99 [degF] Naomie Berry Other [employer] Other 10-05-2022 19:05-0400 Body weight 89.81 kg Naomie Berry Other [employer] Other 10-05-2022 19:05-0400 Diastolic blood pressure 67 mm[Hg] Naomie Berry Other [employer] Other 10-05-2022 19:05-0400 Respiratory rate 18 /min Naomie Berry Other [employer] Other 10-05-2022 19:05-0400 SaO2% (BldA) [Mass fraction] 96 % Naomie Silvamond Other [employer] Other 10-05-2022 19:05-0400 Systolic blood pressure 137 mm[Hg] Naomie Silvamond Other [employer] Other 09-07-2022 01:41-0500 Diastolic blood pressure 96 mm[Hg] Kaylinn Dokken [facility] 09-07-2022 01:41-0500 Heart rate 87 /min Kaylinn Dokken [facility] 09-07-2022 01:41-0500 Mean blood pressure 122 mm[Hg] Kaylinn Dokken [facility] 09-07-2022 01:41-0500 SaO2% (BldA) [Mass fraction] 95 % Kaylinn Dokken [facility] 09-07-2022 01:41-0500 Systolic blood pressure 175 mm[Hg] Kaylinn Dokken [facility] 09-07-2022 01:09-0500 Diastolic blood pressure 78 mm[Hg] Kaylinn Dokken [facility] 09-07-2022 01:09-0500 Heart rate 105 /min Kaylinn Dokken [facility] 09-07-2022 01:09-0500 Mean blood pressure 109 mm[Hg] Kaylinn Dokken [facility] 09-07-2022 01:09-0500 SaO2% (BldA) [Mass fraction] 95 % Kaylinn Dokken [facility] 09-07-2022 01:09-0500 Systolic blood pressure 172 mm[Hg] Kaylinn Dokken [facility] 09-07-2022 00:52-0500 Heart rate 83 /min Kaylinn Dokken [facility] 09-07-2022 00:52-0500 Respiratory rate 22 /min Kaylinn Dokken [facility] 09-07-2022 00:42-0500 Respiratory rate 22 /min Kaylinn Dokken [facility] 09-07-2022 00:42-0500 SaO2% (BldA) [Mass fraction] 98 % Kaylinn Dokken [facility] 09-07-2022 00:32-0500 Respiratory rate 22 /min Kaylinn Dokken [facility] 09-06-2022 23:50-0500 Body temperature 97.88 [degF] Kaylinn Dokken [facility] 09-06-2022 23:50-0500 Diastolic blood pressure 93 mm[Hg] Kaylinn Dokken [facility] 09-06-2022 23:50-0500 Heart rate 75 /min Kaylinn Dokken [facility] 09-06-2022 23:50-0500 Systolic blood pressure 164 mm[Hg] Kaylinn Dokken [facility] 08-31-2022 16:35-0500 Body height 149.86 cm Consuelo Rosales Other [employer] Other 08-31-2022 16:35-0500 Body mass index (BMI) [Ratio] 37.16 kg/m2 Consuelo Rosales Other [employer] Other 08-31-2022 16:35-0500 Body temperature 98.2 [degF] Consuelo Rosales Other [employer] Other 08-31-2022 16:35-0500 Body weight 83.46 kg Consuelo Rosales Other [employer] Other 08-31-2022 16:35-0500 Respiratory rate 18 /min Consuelo Rosales Other [employer] Other 08-31-2022 16:35-0500 SaO2% (BldA) [Mass fraction] 99 % Consuelo Rosales Other [employer] Other 07-24-2022 15:32-0500 Blood Pressure Location Cathleenluann SLOAN [facility] 07-24-2022 15:32-0500 Diastolic blood pressure 72 mm[Hg] Cathleenluann BELLAG [facility] 07-24-2022 15:32-0500 Heart rate 77 /min Cathleen STANG [facility] 07-24-2022 15:32-0500 Respiratory rate 18 /min Cathleenluann BELLAG [facility] 07-24-2022 15:32-0500 SaO2% (BldA) [Mass fraction] 100 % Cathleenluann BELLAG [facility] 07-24-2022 15:32-0500 Systolic blood pressure 122 mm[Hg] Cathleen SLOAN [facility] 06-06-2022 16:17-0500 Body height 149.9 cm Puja Deluca MD Work Phone: [employer] [facility] 06-06-2022 16:17-0500 Body mass index (BMI) [Ratio] 34.94 kg/m2 Puja Deluca MD Work Phone: [employer] [facility] 06-06-2022 16:17-0500 Body temperature 97.5 [degF] Puja Deluca MD Work Phone: [employer] [facility] 06-06-2022 16:17-0500 Body weight 78.47 kg Puja Deluca MD Work Phone: [employer] 05-26-2022 13:50-0500 Body height 149.86 cm Naomie Berry Other [employer] Other 05-26-2022 13:50-0500 Body mass index (BMI) [Ratio] 36.96 kg/m2 Naomie Kristi Other [employer] Other 05-26-2022 13:50-0500 Body temperature 97.1 [degF] Naomie Kristi Other [employer] Other 05-26-2022 13:50-0500 Body weight 83.01 kg Naomie Kristi Other [employer] Other 05-26-2022 13:50-0500 Respiratory rate 19 /min Naomiedavid Berry Other [employer] Other 05-26-2022 13:50-0500 SaO2% (BldA) [Mass fraction] 90 % Naomiedavid Berry Other [employer] Other 05-22-2022 16:52-0500 Hourly Rounding Andrea MARISOL [facility] 05-22-2022 16:52-0500 Promise to Return Andrea MARISOL [facility] 05-22-2022 16:24-0500 SaO2% (BldA) [Mass fraction] 96 % Andrea MARISOL [facility] 05-22-2022 15:46-0500 Heart rate 80 /min Andrea MARISOL [facility] 05-22-2022 15:46-0500 Respiratory rate 16 /min Andrea MARISOL [facility] 05-22-2022 15:45-0500 Hourly Rounding Andrea MARISOL [facility] 05-22-2022 15:45-0500 Promise to Return Andrea MARISOL [facility] 05-22-2022 15:38-0500 Heart rate 87 /min Andrea MARISOL [facility] 05-22-2022 15:38-0500 Respiratory rate 16 /min Andrea MARISOL [facility] 05-22-2022 15:38-0500 SaO2% (BldA) [Mass fraction] 94 % Andrea MARISOL [facility] 05-22-2022 14:23-0500 Hourly Rounding Andrea MARISOL [facility] 05-22-2022 14:23-0500 Promise to Return Andrea MARISOL [facility] 05-22-2022 11:56-0500 Heart rate 84 /min Andrea MARISOL [facility] 05-22-2022 11:56-0500 Respiratory rate 18 /min Andrea MARISOL [facility] 05-22-2022 11:00-0500 Diastolic blood pressure 74 mm[Hg] Andrea MARISOL [facility] 05-22-2022 11:00-0500 gluc 98 mg/dL Andreanuno QUESADASLIN [facility] 05-22-2022 11:00-0500 SaO2% (BldA) [Mass fraction] 95 % Andrea MARISOL [facility] 05-22-2022 11:00-0500 Systolic blood pressure 118 mm[Hg] Andrea MARISOL [facility] 05-22-2022 08:00-0500 gluc 78 mg/dL Andreanuno QUESADASLIN [facility] 05-22-2022 07:27-0500 Body temperature 98.06 [degF] Andreanuno QUESADASLIN [facility] 05-22-2022 07:27-0500 Diastolic blood pressure 67 mm[Hg] Andrea MARISOL [facility] 05-22-2022 07:27-0500 Mean blood pressure 80 mm[Hg] Andrea MARISOL [facility] 05-22-2022 07:27-0500 Systolic blood pressure 107 mm[Hg] Andrea MARISOL [facility] 05-22-2022 03:44-0500 Blood Pressure Location Andrea MARISOL [facility] 05-22-2022 03:44-0500 Diastolic blood pressure 66 mm[Hg] Andrea MARISOL [facility] 05-22-2022 03:44-0500 Heart rate 107 /min Andrea MARISOL [facility] 05-22-2022 03:44-0500 Systolic blood pressure 107 mm[Hg] Andrea MARISOL [facility] 05-22-2022 03:36-0500 Heart rate 106 /min Andrea MARISOL [facility] 05-22-2022 03:36-0500 Mean blood pressure 77 mm[Hg] Andrea MARISOL [facility] 05-22-2022 03:36-0500 Respiratory rate 23 /min Andrea MARISOL [facility] 05-22-2022 02:06-0500 Heart rate 105 /min Andrea MARISOL [facility] 05-22-2022 02:06-0500 Mean blood pressure 84 mm[Hg] Andrea MARISOL [facility] 05-22-2022 02:06-0500 Respiratory rate 16 /min Andrea MARISOL [facility] 05-22-2022 01:39-0500 Mean blood pressure 98 mm[Hg] Andrea MARISOL [facility] 05-22-2022 00:20-0500 gluc 94 mg/dL Andrea MARISOL [facility] 05-22-2022 00:20-0500 gluc Andrea MARISOL [facility] 05-21-2022 08:58-0500 Blood Pressure Location Lorene Fong [facility] 05-21-2022 08:58-0500 Body temperature 97.7 [degF] Lorene Fong [facility] 05-21-2022 08:58-0500 BP/Pulse Patient Position Lorene Fong [facility] 05-21-2022 08:58-0500 Diastolic blood pressure 87 mm[Hg] Lorene Fong [facility] 05-21-2022 08:58-0500 Heart rate 99 /min Lorene Fong [facility] 05-21-2022 08:58-0500 Mean blood pressure 105 mm[Hg] Lorene Fong [facility] 05-21-2022 08:58-0500 Respiratory rate 16 /min Lorene Fong [facility] 05-21-2022 08:58-0500 SaO2% (BldA) [Mass fraction] 97 % Lorene Fong [facility] 05-21-2022 08:58-0500 Systolic blood pressure 143 mm[Hg] Lorene Fong [facility] 05-21-2022 08:40-0500 Blood Pressure Location Flip BERGER [facility] 05-21-2022 08:40-0500 Diastolic blood pressure 75 mm[Hg] Castelan SALAM [facility] 05-21-2022 08:40-0500 Heart rate 101 /min Castelan SALAM [facility] 05-21-2022 08:40-0500 Respiratory rate 16 /min Castelan SALAM [facility] 05-21-2022 08:40-0500 SaO2% (BldA) [Mass fraction] 98 % Castelan SALAM [facility] 05-21-2022 08:40-0500 Systolic blood pressure 144 mm[Hg] Castelan SALAM [facility] 05-21-2022 08:30-0500 Blood Pressure Location Castelan SALAM [facility] 05-21-2022 08:30-0500 Diastolic blood pressure 97 mm[Hg] Castelan SALAM [facility] 05-21-2022 08:30-0500 Heart rate 101 /min Castelan SALAM [facility] 05-21-2022 08:30-0500 Respiratory rate 16 /min Castelan SALAM [facility] 05-21-2022 08:30-0500 SaO2% (BldA) [Mass fraction] 97 % Castelan SALAM [facility] 05-21-2022 08:30-0500 Systolic blood pressure 167 mm[Hg] Castelan SALAM [facility] 05-21-2022 08:25-0500 Blood Pressure Location Castelan SALAM [facility] 05-21-2022 08:25-0500 Diastolic blood pressure 88 mm[Hg] Castelan SALAM [facility] 05-21-2022 08:25-0500 Heart rate 105 /min Castelan SALAM [facility] 05-21-2022 08:25-0500 Respiratory rate 16 /min Castelan SALAM [facility] 05-21-2022 08:25-0500 SaO2% (BldA) [Mass fraction] 96 % Castelan SALAM [facility] 05-21-2022 08:25-0500 Systolic blood pressure 152 mm[Hg] Castelan SALAM [facility] 05-21-2022 08:14-0500 Body temperature 98.42 [degF] Castelan SALAM [facility] 05-21-2022 07:19-0500 Body temperature 97.34 [degF] Castelan SALAM [facility] 05-11-2022 14:11-0500 Diastolic blood pressure 82 mm[Hg] Teodora Tru [facility] 05-11-2022 14:11-0500 Mean blood pressure 100 mm[Hg] Teodora Tru [facility] 05-11-2022 14:11-0500 Systolic blood pressure 136 mm[Hg] Teodora Tru [facility] 05-11-2022 14:06-0500 Blood Pressure Location Teodora Tru [facility] 05-11-2022 14:06-0500 Body temperature 97.16 [degF] Teodora Tru [facility] 05-11-2022 14:06-0500 Diastolic blood pressure 86 mm[Hg] Teodora Tru [facility] 05-11-2022 14:06-0500 Heart rate 81 /min Teodora Tru [facility] 05-11-2022 14:06-0500 Systolic blood pressure 143 mm[Hg] Teodora Tru [facility] 05-02-2022 17:30-0400 Body height 149.86 cm Naomie Berry Other [employer] Other 05-02-2022 17:30-0400 Body mass index (BMI) [Ratio] 36.76 kg/m2 Naomie Berry Other [employer] Other 05-02-2022 17:30-0400 Body temperature 96.9 [degF] Naomie Berry Other [employer] Other 05-02-2022 17:30-0400 Body weight 82.56 kg Naomie Berry Other [employer] Other 05-02-2022 17:30-0400 Respiratory rate 18 /min Naomie Berry Other [employer] Other 05-02-2022 17:30-0400 SaO2% (BldA) [Mass fraction] 99 % Naomie Berry Other [employer] Other 04-15-2022 14:30-0400 Body height 149.86 cm Consuelo Rosales Other [employer] Other 04-15-2022 14:30-0400 Body mass index (BMI) [Ratio] 34.94 kg/m2 Consuelo Rosales Other [employer] Other 04-15-2022 14:30-0400 Body temperature 97.4 [degF] Consuelo Rosales Other [employer] Other 04-15-2022 14:30-0400 Body weight 78.47 kg Consuelo Rosales Other [employer] Other 04-15-2022 14:30-0400 Respiratory rate 18 /min Consuelo Rosales Other [employer] Other 04-15-2022 14:30-0400 SaO2% (BldA) [Mass fraction] 97 % Consuelo Rosales Other [employer] Other 04-05-2022 19:05-0400 Body height 149.86 cm Tonia Zavala Other [employer] Other 04-05-2022 19:05-0400 Body mass index (BMI) [Ratio] 34.53 kg/m2 Tonia Zavala Other [employer] Other 04-05-2022 19:05-0400 Body temperature 98.6 [degF] Tonia Zavala Other [employer] Other 04-05-2022 19:05-0400 Body weight 77.57 kg Tonia Zavala Other [employer] Other 04-05-2022 19:05-0400 Respiratory rate 18 /min Tonia Zavala Other [employer] Other 04-05-2022 19:05-0400 SaO2% (BldA) [Mass fraction] 90 % Tonia Zavala Other [employer] Other 02-15-2022 14:19-0400 Body height 149.9 cm [email or web address] Work Phone: [employer] 02-15-2022 14:19-0400 Body mass index (BMI) [Ratio] 34.94 kg/m2 [employer] Work Phone: [employer] 02-15-2022 14:19-0400 Body temperature 98.01 [degF] [employer] Work Phone: [employer] [facility] 02-15-2022 14:19-0400 Body weight 78.47 kg Medardo LANDISVALIDATION SPECIALIST Work Phone: [facility] 01-24-2022 12:38-0400 Body temperature 98.71 [degF] Puja Deluca MD Work Phone: [facility] [employer] [facility] 01-24-2022 12:38-0400 Diastolic blood pressure 84 mm[Hg] Puja Deluca MD Work Phone: [facility] 01-24-2022 12:38-0400 Heart rate 96 /min Puja Deluca MD Work Phone: [employer] [facility] 01-24-2022 12:38-0400 Respiratory rate 18 /min Puja Deluca MD Work Phone: [facility] 01-24-2022 12:38-0400 SaO2% (BldA) [Mass fraction] 96 % Puja Deluca MD Work Phone: [facility] [facility] 01-24-2022 12:38-0400 Systolic blood pressure 162 mm[Hg] Puja Deluca MD Work Phone: [facility] 01-23-2022 09:47-0400 Body height 149.9 cm Puja Deluca MD Work Phone: [facility] 01-23-2022 09:47-0400 Body mass index (BMI) [Ratio] 34.42 kg/m2 Puja Deluca MD Work Phone: [facility] 01-23-2022 09:47-0400 Body weight 77.29 kg Puja Deluca MD Work Phone: [employer] [facility] 01-11-2022 10:18-0400 Body height 149.9 cm Puja Deluca MD Work Phone: [facility] 01-11-2022 10:18-0400 Body mass index (BMI) [Ratio] 34.94 kg/m2 Puja Deluca MD Work Phone: [facility] 01-11-2022 10:18-0400 Body temperature 98.49 [degF] Puja Deluca MD Work Phone: [employer] 01-11-2022 10:18-0400 Body weight 78.47 kg Puja Deluca MD Work Phone: [employer] 12-15-2021 17:30-0400 Body height 149.86 cm Consuelo Rosales Other [employer] Other 12-15-2021 17:30-0400 Body mass index (BMI) [Ratio] 32.51 kg/m2 Consuelo Rosales Other [employer] Other 12-15-2021 17:30-0400 Body temperature 98.2 [degF] Consuelo Rosales Other [employer] Other 12-15-2021 17:30-0400 Body weight 73.03 kg Consuelo Rosales Other [employer] Other 12-15-2021 17:30-0400 Respiratory rate 18 /min Consuelo Rosales Other [employer] Other 12-15-2021 17:30-0400 SaO2% (BldA) [Mass fraction] 96 % Consuelo Rosales Other [employer] Other 11-01-2021 16:45-0400 Body height 149.86 cm Tondra Mapus Other [employer] Other 11-01-2021 16:45-0400 Body mass index (BMI) [Ratio] 35.14 kg/m2 Tondra Mapus Other [employer] Other 11-01-2021 16:45-0400 Body weight 78.93 kg Tondra Mapus Other [employer] Other 11-01-2021 16:45-0400 Diastolic blood pressure 73 mm[Hg] Tondra Mapus Other [employer] Other 11-01-2021 16:45-0400 Respiratory rate 16 /min Tondra Mapus Other [employer] Other 11-01-2021 16:45-0400 SaO2% (BldA) [Mass fraction] 98 % Tondra Mapus Other [employer] Other 11-01-2021 16:45-0400 Systolic blood pressure 144 mm[Hg] Tondra Mapus Other [employer] Other 10-13-2021 11:12-0400 Blood Pressure Location Teodora Ott [facility] 10-13-2021 11:12-0400 Body temperature 97.52 [degF] Teodora Ott [facility] 10-13-2021 11:12-0400 Diastolic blood pressure 60 mm[Hg] Teodora Ott [facility] 10-13-2021 11:12-0400 Heart rate 81 /min Teodoragarrison Ott [facility] 10-13-2021 11:12-0400 SaO2% (BldA) [Mass fraction] 96 % Teodoragarrison Brunerz [facility] 10-13-2021 11:12-0400 Systolic blood pressure 94 mm[Hg] Teodora Ott [facility] 10-04-2021 15:26-0400 Body temperature 97.88 [degF] [facility] 10-04-2021 15:26-0400 Diastolic blood pressure 90 mm[Hg] [facility] 10-04-2021 15:26-0400 Heart rate 76 /min [facility] 10-04-2021 15:26-0400 Mean blood pressure 116 mm[Hg] [facility] 10-04-2021 15:26-0400 SaO2% (BldA) [Mass fraction] 96 % [facility] 10-04-2021 15:26-0400 Systolic blood pressure 167 mm[Hg] [facility] 10-04-2021 15:00-0400 Respiratory rate 16 /min [facility] 08-28-2021 17:35-0500 Body height 149.86 cm Tonia Zavala Other [facility] [employer] Other 08-28-2021 17:35-0500 Body mass index (BMI) [Ratio] 36.76 kg/m2 Tonia Zavala Other [employer] Other 08-28-2021 17:35-0500 Body temperature 98 [degF] Tonia Zavala Other [employer] Other 08-28-2021 17:35-0500 Body weight 82.56 kg Tonia Zavala Other [employer] Other 08-28-2021 17:35-0500 Diastolic blood pressure 73 mm[Hg] Tonia Zavala Other [employer] Other 08-28-2021 17:35-0500 Respiratory rate 18 /min Tonia Zavala Other [employer] Other 08-28-2021 17:35-0500 SaO2% (BldA) [Mass fraction] 98 % Tonia Zavala Other [employer] Other 08-28-2021 17:35-0500 Systolic blood pressure 154 mm[Hg] Tonia Zavala Other [employer] Other 04-05-2021 17:15-0400 Body height 149.86 cm Jesus Higgins Jr. Other [employer] Other 04-05-2021 17:15-0400 Body mass index (BMI) [Ratio] 38.75 kg/m2 Jesus Higgins Jr. Other [employer] Other 04-05-2021 17:15-0400 Body weight 87.05 kg Jesus Moscosorachana Sung. Other [employer] Other 04-05-2021 17:15-0400 Diastolic blood pressure 77 mm[Hg] Jesus Higgins Jr. Other [employer] Other 04-05-2021 17:15-0400 Respiratory rate 18 /min Jesus Higgins Jr. Other [employer] Other 04-05-2021 17:15-0400 SaO2% (BldA) [Mass fraction] 99 % Jesus Higgins Jr. Other [employer] Other 04-05-2021 17:15-0400 Systolic blood pressure 128 mm[Hg] Jesus Moscosorachana Coronado Other [employer] Other 05-16-2017 15:00-0500 Pulse (Heart Rate) 86 /min Shante Delarosa [facility] Work Phone: 05-16-2017 15:00-0500 Pulse Oximetry 94 % Shante Delarosa [facility] Work Phone: 05-16-2017 15:00-0500 Respiratory Rate 16 /min Shante Delarosa [facility] Work Phone: 05-16-2017 14:45-0500 BP Diastolic 62 mm[Hg] Shante Delarosa [facility] Work Phone: 05-16-2017 14:45-0500 BP Systolic 130 mm[Hg] Shante Delarosa [facility] Work Phone: 05-16-2017 13:45-0500 Body Temperature 98.4 [degF] Shante Delarosa [facility] Work Phone: 05-13-2017 09:41-0500 BMI (Body Mass Index) 39.99 kg/m2 Rosa Lazo [employer] Work Phone: 05-13-2017 09:41-0500 Body Temperature 97.9 [degF] Rosa Lazo [facility] Work Phone: 05-13-2017 09:41-0500 BP Diastolic 81 mm[Hg] Rosa Lazo [facility] Work Phone: 05-13-2017 09:41-0500 BP Systolic 138 mm[Hg] Rosa Lazo [employer] Work Phone: 05-13-2017 09:41-0500 Height 149.9 cm Rosa Lazo [employer] Work Phone: 05-13-2017 09:41-0500 Pulse (Heart Rate) 81 /min Rosa Lazo [employer] Work Phone: 05-13-2017 09:41-0500 Pulse Oximetry 97 % Rosa Lazo [facility] Work Phone: 05-13-2017 09:41-0500 Weight 89.81 kg Rosa Lazo [facility] Work Phone: Encounters Encounter Date Encounter Type Care Provider Facility Start: 08-06-2023 End: 08-06-2023 ambulatory SINTIA JARVIS Not Available Start: 08-02-2023 End: 08-03-2023 ambulatory MACHINE HOSE CUTTER Marisela L Deya [facility] Start: 07-24-2023 ambulatory Aline Guerrero Facility:[facility] Start: 07-23-2023 End: 07-24-2023 ambulatory ROSA DUNBAR Not Available Start: 07-15-2023 Telephone encounter Naty Luke [facility] Start: 07-15-2023 End: 07-16-2023 ambulatory STEVO AISHWARYA [employer] Other Start: 07-15-2023 End: 07-15-2023 Patient encounter procedure STEVO AISHWARYA [facility] Start: 06-28-2023 End: 06-29-2023 ambulatory MACHINE HOSE CUTTER Marisela L Deya Facility[facility] Start: 06-25-2023 End: 06-26-2023 ambulatory ROSA DUNBAR Not Available Start: 06-11-2023 End: 06-12-2023 ambulatory ROSA DUNBAR Not Available Start: 05-28-2023 End: 05-29-2023 ambulatory ROSA DUNBAR Not Available Start: 05-20-2023 End: 05-21-2023 ambulatory Rosa Dunbar Facility:[facility] Start: 05-10-2023 End: 05-11-2023 ambulatory MACHINE HOSE CUTTER Marisela L Deya Facility:[facility] Start: 05-07-2023 End: 05-08-2023 ambulatory Teodora Ott Facility:[facility] Start: 05-03-2023 End: 05-04-2023 ambulatory [facility] Facility:[facility] Start: 04-23-2023 End: 04-24-2023 ambulatory MACHINE HOSE CUTTER Marisela L Deya Facility:[facility] Start: 04-21-2023 Refill Stevo Neff MD Work Phone: Rheumatology Comment on above: Refill Request Start: 04-08-2023 End: 04-08-2023 ambulatory Naty Luke Other [employer] Other Start: 04-08-2023 Telephone encounter Naty Luke [facility] Start: 03-20-2023 End: 03-21-2023 ambulatory MACHINE HOSE CUTTER Marisela L Deya [facility] Start: 03-14-2023 Telephone encounter Stevo rosales MD Work Phone: Rheumatology Comment on above: Rinvoq prior auth re newal Start: 02-20-2023 ambulatory MEDARDO VUONG [facility] Start: 02-20-2023 End: 02-20-2023 Office outpatient visit 15 minutes Medardo Vuong [employer] SUPER[employer]-VALIDATION SPECIALIST Work Phone: [facility] Comment on above: Hx of total knee art hroplasty, right (Primary Dx) Start: 02-20-2023 End: 02-20-2023 Subsequent hospital visit by physician Medardo Vuong [employer] SUPERVIS[employer]-VALIDATION SPECIALIST Work Phone: [facility] Start: 01-14-2023 End: 01-15-2023 ambulatory Silvestre Benavides [facility] Start: 12-27-2022 ambulatory Silvestre Benavides Facility :[facility] Start: 12-05-2022 End: 12-06-2022 ambulatory Teodora Ott Facility[facility] Start: 12-05-2022 End: 12-05-2022 Patient encounter procedure Teodora Ott [facility] Start: 11-22-2022 End: 11-23-2022 ambulatory Silvestre Benavides Facility: [facility] Start: 11-21-2022 End: 12-24-2022 ambulatory Silvestre Benavides Facility:CD:[id number] Start: 11-19-2022 End: 11-20-2022 ambulatory SILVESTRE BENAVIDES Facility:[facility] Start: 2022 End: 11-06-2022 ambulatory DANANigel LUKE Facility:[facility] Start: 10-30-2022 End: 10-31-2022 ambulatory SILVESTRE BENAVIDES Facility:[facility] Start: 10-19-2022 End: 10-20-2022 ambulatory SILVESTRE BENAVIDES Facility:[facility] Start: 10-11-2022 End: 10-11-2022 ambulatory Naomie Berry Other [employer] Other Start: 10-11-2022 Telephone encounter Naomie [facility] Start: 10-05-2022 End: 10-05-2022 Departed Referred MD Aline Guerrero Work Phone: [facility] [place] Work Phone: Start: 10-05-2022 End: 10-05-2022 ambulatory MD Aline Guerrero Work Phone: [employer] Other Start: 10-05-2022 Office outpatient vi sit 25 minutes Naomie Berry [facility] Start: 10-01-2022 End: 10-02-2022 ambulatory Silvestre Benavides Facility: [facility] Start: 09-25-2022 ambulatory Teodora López ty:[facility] Start: 09-15-2022 End: 09-16-2022 ambulatory EDMAR Cotton Facility:[facility] Start: 09-11-2022 End: 09-12-2022 ambulatory ALINE GUERRERO Facility: [facility] Start: 09-07-2022 End: 09-07-2022 Emergency department patient visit DO Shalom Toledo Facility:[facility] Start: 09-06-2022 End: 09-07-2022 Emergency department patient visit Shalom Toledo [facility] Start: 09-05-2022 End: 09-06-2022 ambulatory Silvestre Benavides Facility:[facility] Start: 08-31-2022 End: 08-31-2022 ambulatory Consuelo Rosales Other [employer] Other Start: 08-31-2022 Office outpatient vi sit 25 minutes Consuelo Rosales [facility] Start: 08-27-2022 End: 08-27-2022 ambulatory Naty Luke Other [employer] Other Start: 08-27-2022 Telephone encounter Danadra Kamaraus [facility] Start: 08-10-2022 End: 08-11-[address] ALINE GUERRERO . Facility: Start: 07-24-2022 End: 07-24-2022 Patient encounter procedure Cathleen Brendon SLOAN [facility] Start: 07-20-2022 End: 07-20-2022 Patient encounter procedure Cathleen L LUTHER [facility] Start: 07-18-2022 Telephone encounter Stevo rosales MD Work Phone: Rheumatology Comment on above: Medication Problem ( PA for R[employer]q); Medication Authorization Start: 06-06-2022 ambulatory PUJA DELUCA [facility] Start: 06-06-2022 End: 06-06-2022 Office outpatient visit 15 minutes Puja Deluca MD Work Phone: [facility] Comment on above: Hx of total knee art hroplasty, right (Primary Dx) Start: 06-04-2022 End: 06-04-2022 Patient encounter procedure Cathleen SLOAN [facility] Start: 05-26-2022 End: 05-26-2022 ambulatory Naomie Silvamond Other [employer] Other Start: 05-26-2022 Office outpatient vi sit 15 minutes Naomie Kristi [facility] Start: 05-22-2022 ambulatory TONDRA MAPUS Facility:[facility] 1 Start: 05-22-2022 End: 05-22-2022 Observation Andrea DAMON [facility] Start: 05-21-2022 End: 05-21-2022 Patient encounter procedure Lorene Fong [facility] Start: 05-21-2022 End: 05-21-2022 Patient encounter procedure Flip BERGER [facility] Start: 05-17-2022 End: 05-17-2022 Patient encounter procedure Haim Do [facility] Start: 05-17-2022 Telephone encounter Stevo rosales MD Work Phone: Rheumatology Comment on above: Medication Authoriza tion (Rinvoq-[place]); Insurance Authorization (Prior Auth Delayed: Patient has an authorization for Prolia on file with an outside facility and provider) Start: 05-15-2022 End: 05-15-2022 ambulatory Tondra Mapus Other [employer] [facility] [employer] Other Start: 05-15-2022 Telephone encounter Tondra Mapus [facility] Start: 05-11-2022 End: 05-11-2022 Patient encounter procedure Teodora Ott [facility] Start: 05-09-2022 Telephone encounter Stevo rosales MD Work Phone: Rheumatology Comment on above: Results Start: 05-08-2022 Refill Ruthie maza MD Work Phone: Rheumatology Comment on above: Refill Request Start: 05-04-2022 End: 05-04-2022 ambulatory TEE PULIDO Facility:[facility] Start: 05-02-2022 End: 05-02-2022 Patient encounter procedure MD Aline Guerrero Work Phone: [facility] Start: 05-02-2022 End: 05-02-2022 ambulatory MD Aline Guerrero Work Phone: [facility] Work Phone: Start: 05-02-2022 Office outpatient vi sit 15 minutes Naomie Berry [facility] Start: 04-15-2022 Office outpatient vi sit 25 minutes Consuelo Rosales [facility] Start: 04-15-2022 End: 04-15-2022 ambulatory MD Aline Guerrero Work Phone: [facility] Work Phone: Start: 04-15-2022 End: 04-15-2022 Patient encounter procedure MD Aline Guerrero Work Phone: [facility] Start: 04-09-2022 End: 04-09-2022 ambulatory CIARA GALEANO . Facility:[facility] Start: 04-05-2022 End: 04-05-2022 ambulatory Tonia Zavala Other [employer] Other Start: 04-05-2022 Office outpatient vi sit 15 minutes Tonia Zavala [facility] Start: 02-22-2022 End: 03-21-[address] ALINE GUERRERO . 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 Facility: Start: 12-29-2021 End: 12-30-[address] ALINE GUERRERO . Facility: Start: 12-20-2021 End: 12-21-[address] ALINE GUERRERO . Facility:[facility] Start: 12-15-2021 End: 12-15-2021 ambulatory Consuelo Rosales Other [employer] Other Start: 12-15-2021 Office outpatient vi sit 25 minutes Consuelo Rosales [facility] Start: 11-23-2021 End: 11-23-2021 Patient encounter procedure Teodora Ott [facility] Start: 11-01-2021 (DM) Diabetes Tondra Mapus [facility] Start: 11-01-2021 End: 11-01-2021 ambulatory Tondra Mapus Other [employer] Other Start: 10-13-2021 End: 10-13-2021 Patient encounter procedure Teodora Ott [facility] Start: 10-07-2021 End: 10-07-2021 Lab Drop off Teodora Ott [facility] Start: 10-04-2021 End: 10-04-2021 Patient encounter procedure Haim Do [facility] Start: 08-28-2021 End: 08-28-2021 ambulatory Tonia Zavala Other [facility] [employer] Other Start: 08-28-2021 Office outpatient vi sit 15 minutes Tonia Zavala [facility] Start: 04-05-2021 (DM) Diabetes Jesus Higgins Jr. [facility] Start: 05-16-2017 End: 05-16-2017 Ambulatory SHANTE DELAROSA [facility] Start: 05-16-2017 End: 05-16-2017 Ambulatory Shante Delarosa Work Phone: [facility] Start: 05-14-2017 End: 05-15-2017 Ambulatory ROSA STONE CLIFTON [facility] Start: 05-14-2017 End: 05-15-2017 Ambulatory ROSA STONE [facility] Start: 05-14-2017 End: 05-15-2017 Ambulatory ROSA LAZO [facility] Start: 05-14-2017 End: 05-14-2017 Ambulatory oRsa Lazo Work Phone: [facility] Nuclear Medicine Start: 05-13-2017 End: 05-17-2017 Ambulatory SHANTE DELAROSA [facility] Start: 05-13-2017 Patient encounter Shante sales Work Phone: [facility] Preadmission Testing Start: 11-24-2015 End: 11-24-2015 Telephone encounter Katja Adams APRN.CNP Work Phone: Endocrinology Comment on above: Patient Question; Re sults Procedures Date Procedure Procedure Detail Performing Clinician Start: 08-06-2023 End: 08-06-2023 [facility] medical xm&eval comprhnsv estab pt 1/> Bilateral posterior capsular opacification Sintia Holger Jarvis DO Work Phone: Comment on above: Bilateral posterior capsular opacificati on (Primary Dx) Start: 10-05-2022 Urine culture MD Aline Guerrero Work Phone: Start: 05-21-2022 Esophagogastroduodenoscopy gastric outlet reduction Lorene Fong Start: 05-02-2022 Plain chest X-ray MD Aline Guerrero Work Phone: Start: 04-15-2022 Plain chest X-ray MD Aline Guerrero Work Phone: Start: 01-24-2022 Gluc bld gluc mntr dev cleared fda spec home use Puja Deluca MD Work Phone: Start: 01-24-2022 Gluc bld gluc mntr dev cleared fda spec home use Puja Deluca MD Work Phone: Start: 01-24-2022 Basic metabolic panel calcium total Andrea Bedolla MD Work Phone: Start: 01-24-2022 Complete blood count with white cell differential, automated Medardo Vuong [employer] SUPERVISOR-VALIDATION SPECIALIST Work Phone: Start: 01-23-2022 Gluc bld gluc mntr dev cleared fda spec home use Puja Deluca MD Work Phone: Start: 01-23-2022 Gluc bld gluc mntr dev cleared fda spec home use Puja Deluca MD Work Phone: Start: 01-23-2022 Radiologic examination knee 1/2 views Medardo Vuong [employer] SUPERVISOR-VALIDATION SPECIALIST Work Phone: Start: 01-23-2022 Cul bact paulo aerobic isol xcpt ur blood/stool Puja Deluca MD Work Phone: Start: 01-23-2022 End: 01-23-2022 Arthrp kne condyle&platu medial&lat compartments Puja Deluca MD Work Phone: Start: 01-23-2022 Blood group typing, RH phenotyping Puja Deluca MD Work Phone: Start: 01-23-2022 Cultyp nuc acid amp prb cult/isolate ea orgnism Andrea Bedolla MD Work Phone: Start: 01-23-2022 Sars-cov-2 detection by dna/rna Andrea sutherland MD Work Phone: Start: 05-09-2021 Colonoscopy Sintia Christiane DO Work Phone: Start: 05-09-2021 Colonoscopy Teodora Ott Start: 05-09-2021 Esophagogastroduodenoscopy Teodora albert Start: 06-01-2020 Mammography Sintia Jarvis Work Phone: Start: 05-16-2017 End: 05-16-2017 LEFT FOOT HARDWARE REMOVAL Shante Delarosa Work Phone: Start: 01-27-2010 Colonoscopy Katja Adams [employer] SUPERVISOR.VALIDATION SPECIALIST Work Phone: Arthroplasty of knee Haim Do Cholecystectomy Haim joe Extraction of cataract Timot hy [place] Comment on above: bilateral Foot repair Haim Andreaowi cz Hysterectomy Haim Shadiai cz Shoulder region stru cture (body structure) STEVO NEFF Tonsillectomy & nathalie oidectomy age 11/> Shalom Toledo Plan of Treatment Date Care Activity Detail Author Start: 05-09-2031 Screening for malign ant neoplasm of colon [facility] Start: 05-07-2025 DIABETES SCREEN DIABETES SCREEN [facility] Start: 05-07-2025 Diabetes Screening Diabetes Screenin g [facility] Start: 10-02-2023 End: 10-02-2023 Patient encounter procedure 10/02/2023 8:00 AM EDT Office Visit [facility] [address] [place] [id number] Merline Prieto NP [address] [place] [address] [facility] Start: 09-25-2023 End: 09-25-2023 Patient encounter procedure 09/25/2023 7:30 AM EDT Procedure Visit [facility] Sintia Jarvis, DO [address] [place] [address] [facility] Start: 09-17-2023 End: 09-17-2023 Patient encounter procedure 09/17/2023 1:30 PM EDT Office Visit [facility] [address] [place] [address] Rosa Dunbar, DO [address] [place] [address] [facility] Start: 09-11-2023 End: 09-11-2023 Patient encounter procedure 09/11/2023 7:30 AM EDT Procedure Visit [facility] Sintia Madison, DO [address] [place] [address] [facility] Start: 03-01-2023 Influenza vaccination INFLUENZA VACC INE (#1) [facility] Start: 01-31-2023 End: 01-31-2023 Patient encounter procedure 01/31/2023 Office Visit Orthopaedics Medardo Vuong, [employer] SUPERVISOR-VALIDATION SPECIALIST [address] [place] [address] [facility] Start: 10-05-2022 Bacteria identified in Urine by Culture [facility] Start: 08-09-2022 End: 05-09-2023 25-hydroxyvitamin D3 [Mass/volume] in Serum or Plasma VITAMIN D 25 HYDROXY Lab Routine Vitamin D deficiency Expected: 08/09/2022 (Approximate), Expires: 05/09/2023 [facility] Work Phone: Comment on above: Expected: 08/09/2022 (Approximate), Expires: 05/09/2023 Start: 08-09-2022 End: 05-09-2023 C reactive protein [Mass/volume] in Serum or Plasma C-REACTIVE PROTEIN (CRP) Lab Routine Elevated sed rate Elevated C-reactive protein (CRP) Expected: 08/09/2022 (Approximate), Expires: 05/09/2023 [facility] Work Phone: Comment on above: Expected: 08/09/2022 (Approximate), Expires: 05/09/2023 Start: 08-09-2022 End: 05-09-2023 CBC panel - Blood by Automated count CBC Lab Routine Anemia of chronic disease Expected: 08/09/2022 (Approximate), Expires: 05/09/2023 [facility] Work Phone: Comment on above: Expected: 08/09/2022 (Approximate), Expires: 05/09/2023 Start: 08-09-2022 End: 05-09-2023 Comprehensive metabolic 2000 panel - Serum or Plasma COMP METABOLIC PANEL Lab Routine Elevated LFTs Expected: 08/09/2022 (Approximate), Expires: 05/09/2023 [facility] Work Phone: Comment on above: Expected: 08/09/2022 (Approximate), Expires: 05/09/2023 Start: 08-09-2022 End: 05-09-2023 Erythrocyte sedimentation rate SED RATE WESTERGREN Lab Routine Elevated sed rate Elevated C-reactive protein (CRP) Expected: 08/09/2022 (Approximate), Expires: 05/09/2023 [facility] Work Phone: Comment on above: Expected: 08/09/2022 (Approximate), Expires: 05/09/2023 Start: 07-01-2022 DEPRESSION ASSESSMENT DEPRESSION ASS ESSMENT [facility] Start: 05-30-2022 End: 05-30-2022 Patient encounter procedure 05/30/2022 Office Visit Orthopaedics Puja Deluca MD [address] [place] [address] [facility] Start: 03-01-2022 Influenza vaccination A [facility] Start: 02-15-2022 End: 02-15-2022 Patient encounter procedure 02/15/2022 Office Visit Orthopaedics Emilie Medardo, GLAZING DEPARTMENT SUPERVISOR-VALIDATION SPECIALIST [address] [place] [address] [facility] Start: 07-01-2021 DEPRESSION ASSESSMENT DEPRESSION ASS ESSMENT [facility] Start: 06-01-2021 Screening for malign ant neoplasm of breast Mammogram [facility] Start: 03-01-2021 Influenza vaccination INFLUENZ A (Season Ended) [facility] Start: 10-21-2020 COVID-19 VACCINE (3 - Pfizer risk series) COVID-19 VACCINE (3 - Pfizer risk series) [facility] Start: 2019 RSV Vaccine (1 - 1-d ose 60+ series) RSV Vaccine (1 - 1-dose 60+ series) [facility] Start: 05-16-2017 Ambulatory [facility] Start: 05-15-2017 Ambulatory 05/15/2017 Ane sthesia Event Larisa Javier, DO [address] [place] [address] [phone] [facility] Start: 03-01-2017 Influenza vaccination SEQUENTI AL INFLUENZA VACCINE (#1) [facility] Work Phone: Start: 01-27-2017 DIABETES SCREEN DIABETES SCREEN [facility] Start: 01-27-2017 PAP TESTING PAP TESTING [facility] Start: 01-27-2011 Colonoscopy COLONOSCOPY [facility] Start: 01-27-2011 COLORECTAL CANCER SCREENING COLORECTAL CANCER SCREENING [facility] Start: 01-27-2011 Screening for malign ant neoplasm of colon [facility] Start: 11-04-2009 Screening for malign ant neoplasm of colon [facility] Start: 11-04-2009 SHINGRIX VACCINE (1 of 2) SHINGRIX VACCINE (1 of 2) [facility] Start: 11-04-2009 Zoster vaccine hzv l sandra for subcutaneous use ZOSTER (SHINGLES) VACCINE (1 of 2) [facility] Start: 11-04-2004 COLOGUARD (FIT-DNA) COLOGUARD (FIT-D NA) [facility] Start: 11-04-2004 Colonoscopy COLORECTAL CAN CER SCREENING DISCUSSION [facility] Start: 11-04-[address] COLONOGRAPHY [facility] Start: 11-04-2004 FECAL OCCULT BLOOD FECAL OCCULT BLOO D [facility] Start: 11-04-2004 Lipid 1996 panel - Serum or Plasma Lipid Screening [facility] Start: 11-04-2004 LIPID SCREEN LIPID SCREEN [facility] Start: 11-04-2004 Screening for malign ant neoplasm of colon COLORECTAL CANCER SCREENING DISCUSSION [facility] Start: 11-04-2004 SIGMOIDOSCOPY SIGMOIDOSCOPY [facility] Start: 1999 Fasting lipid profile LIPID SCREENIN G [facility] Start: 1999 Lipid panel LIPID SCREENING [facility] Start: 1999 Mammography [facility] Start: 1999 Screening for malign ant neoplasm of breast MAMMOGRAM SCREENING DISCUSSION [facility] Start: 1999 Screening mammography MAMMOGRA M SCREENING DISCUSSION [facility] Start: 11-04-1989 HPV TESTING HPV TESTING [facility] Start: 11-04-1989 Screening for malign ant neoplasm of cervix [facility] Start: 11-04-1980 Screening for malign ant neoplasm of cervix [facility] Start: 11-04-1978 SHINGRIX VACCINE (1 of 2) SHINGRIX VACCINE (1 of 2) [facility] Start: 11-04-1978 Third diphtheria, tetanus and acellular pertussis (DTaP) vaccination TDAP (ADULT) [facility] Start: 11-04-1978 Urine microalbumin profile [facility] Start: 11-04-1977 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 HILDA DISEASE VISIT ANNUAL PCP TEAM CHRONIC DISEASE VISIT [facility] Start: 11-04-1977 HEPATITIS C SCREENING HEPATITIS C SC JACQUI [facility] Start: 11-04-1977 HIV SCREENING HIV SCREENING [facility] Start: 11-04-1977 Tetanus vaccination TETANUS [facility] Start: 11-04-1974 HIV screening HIV SCREENING DISCUSSION [facility] Start: 1971 Adult depression screening assessment DEPRESSION SCREENING [facility] Start: 11-04-1969 Diabetic foot examination (regime/therapy) FOOT EXAM [facility] Work Phone: Start: 11-04-1969 Ophthalmic examinati on and evaluation OPHTHALMOLOGY EXAM [facility] Work Phone: Start: 11-04-1969 Urine, microalbumin URINE MICROALBUM IN [facility] Work Phone: Start: 11-04-1965 PNEUMOCOCCAL (1 - PCV) PNEUMOCOCCAL (1 - PCV) [facility] Start: 11-04-1965 Pneumococcal vaccination Pneumococcal Vaccine (1 - PCV) [facility] Start: 05-07-1960 COVID-19 VACCINE (#1) COVID-19 VACCI NE (#1) [facility] Start: 1959 Hepatitis C antibody , confirmatory test HEPATITIS C VIRUS SCREENING [facility] Start: 1959 Hepatitis C screening HEPATITI S C VIRUS SCREENING [facility] Start: 1959 Screening for malign ant neoplasm of colon [facility] Start: 1959 Thyroid stimulating hormone measurement TSH [facility] Start: 1959 Hemoglobin A1c/Hemoglobin.total mass fraction (Bld) HEMOGLOBIN A1C [facility] Work Phone: Start: 1959 HEPATITIS C SCREENING HEPATITIS C SC REENING [facility] Work Phone: Start: 1959 Screening colonoscopy COLONOSCOPY [facility] Work Phone: Start: 1959 Screening for malign ant neoplasm of cervix PAP SMEAR [facility] Work Phone: Start: 1959 End: 1959 Tetanus vaccination [facility] ANAEROBE CULTURE ANAEROBE CULTUR E Microbiology Routine 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, initial encounter Release Upon Ordering for 1 Occurrences starting 01/23/2022 [facility] Comment on above: Release Upon Orderin g for 1 Occurrences starting 01/23/2022 ANAEROBE CULTURE ANAEROBE CULTUR E Microbiology Routine 01/23/2022 12:35 PM EDT [facility] Bacteria identified in Unspecified specimen by Culture BACTERIAL CULTURE AND DIRECT SMEAR, LESION, TISSUE, DEVICE Microbiology Routine 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, initial encounter Release Upon Ordering for 1 Occurrences starting 01/23/2022 [facility] Comment on above: Release Upon Orderin g for 1 Occurrences starting 01/23/2022 Fungus identified in Unspecified specimen by Culture FUNGUS CULTURE Microbiology Routine 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, initial encounter Release Upon Ordering for 1 Occurrences starting 01/23/2022 [facility] Comment on above: Release Upon Orderin g for 1 Occurrences starting 01/23/2022 Fungus identified in Unspecified specimen by Culture FUNGUS CULTURE Microbiology Routine 01/23/2022 12:35 PM EDT [facility] 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 by Organism specific culture ACID FAST CULTURE, TISSUE Microbiology Routine 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, initial encounter Release Upon Ordering for 1 Occurrences starting 01/23/2022 [facility] Comment on above: Release Upon Orderin g for 1 Occurrences starting 01/23/2022 Mycobacterium sp identified in Unspecified specimen by Organism specific culture ACID FAST CULTURE Microbiology Routine 01/23/2022 12:35 PM [facility] Radiography for bone length studies XR BONE LENGTH STUDY Imaging Routine Right knee pain, unspecified chronicity 01/11/2022 10:31 AM [facility] Radiography for bone length studies XR BONE LENGTH STUDY Imaging Routine Hx of total knee arthroplasty, right 06/06/2022 4:09 PM [facility] TISSUE CULTURE TISSUE CULTURE Microbiology Routine 01/23/2022 12:35 PM [facility] XR Knee - right 3 Views XR KNEE RIGHT 3 VIEWS Imaging Routine Right knee pain, unspecified chronicity 01/11/2022 10:31 AM [facility] XR Knee - right 3 Views XR KNEE RIGHT 3 VIEWS Imaging Routine Hx of total knee arthroplasty, right 02/15/2022 2:08 PM [facility] XR Knee - right 3 Views XR KNEE RIGHT 3 VIEWS Imaging Routine Hx of total knee arthroplasty, right 06/06/2022 4:09 PM [facility] XR Knee - right 3 Views XR KNEE RIGHT 3 VIEWS Imaging Routine Hx of total knee arthroplasty, right [facility] Immun[facility] Immunization Date Immunization Notes Care Provider Tayo sullivan 07-24-2022 influenza virus vaccine, unspecified formulation Shalom Toledo [facility] 07-24-2022 influenza, injectabl e, quadrivalent, preservative free Sintia Jarvis DO Work Phone: [facility] 07-24-2022 Moderna SARS-CoV-2 50mcg/0.5mL Booster Sintia Jarvis DO Work Phone: [facility] 07-24-2022 SARS-CoV-2 (COVID-19 ) [id number] Shalom Toledo [facility] 11-17-2021 SARS-CoV-2 mRNA (uincywrkbiq-gpav-kkarl se) vaccine Teodora Currymetz [facility] 06-09-2021 SARS-CoV-2 (COVID-19 ) mRNA BNT-162b2 vax Teodora Ott [facility] 05-10-2021 influenza, high dose seasonal, preservative-free Sintia Jarvis DO Work Phone: [facility] 05-10-2021 influenza virus vaccine, unspecified formulation Puja Deluca MD Work Phone: [facility] 05-01-2021 influenza virus vaccine, unspecified formulation [facility] 04-27-2021 influenza virus vaccine, unspecified formulation Teodora Ott [facility] 04-27-2021 influenza, injectabl e, quadrivalent, preservative free Sintia Jarvis DO Work Phone: [facility] 09-23-2020 COVID-19, mRNA, LNP- S, PF, 30 mcg/0.3 mL dose; Translations: [Pfizer-BioNTech COVID-19 Vaccine] Haim Do [facility] Comment on above: Reason for Medicatio n: Prophylaxis 09-02-2020 COVID-19, mRNA, LNP- S, PF, 30 mcg/0.3 mL dose; Translations: [Pfizer-BioNTech COVID-19 Vaccine] Haim Do [facility] Comment on above: Reason for Medicatio n: Prophylaxis 04-14-2020 influenza virus vaccine, unspecified formulation Teodora Tru [facility] 04-14-2020 Influenza, injectabl e, Madin Briana Canine Kidney, preservative free, quadrivalent Sintia Zahler DO Work Phone: [facility] 04-04-2020 influenza, high dose seasonal, preservative-free Sintia Zahler DO Work Phone: [facility] 03-18-2019 influenza, injectabl e, quadrivalent, preservative free Sintia Zahler DO Work Phone: [facility] 03-02-2019 influenza virus vaccine, unspecified formulation Teodora Tru [facility] 03-02-2019 influenza, injectabl e, quadrivalent, preservative free Sintia Zahler DO Work Phone: [facility] 02-24-2019 influenza virus vaccine, unspecified formulation Teodora Tru [facility] 02-24-2019 influenza, injectabl e, quadrivalent, preservative free Sintia Zahler DO Work Phone: [facility] 05-26-2018 pneumococcal polysaccharide vaccine, 23 valent Teodora Tru [facility] 03-13-2018 pneumococcal polysaccharide vaccine, 23 valent Teodora Tru [facility] 03-26-2017 influenza virus vaccine, unspecified formulation Teodora Tru [facility] 03-26-2017 influenza, injectabl e, quadrivalent, preservative free Sintia Zahler DO Work Phone: [facility] 03-20-2016 influenza virus vaccine, unspecified formulation Teodora Tru [facility] 03-20-2016 influenza, injectabl e, quadrivalent, preservative free Sintia Zahler DO Work Phone: [facility] 04-27-2014 influenza virus vaccine, unspecified formulation Teodora Ott [facility] 04-27-2014 influenza, seasonal, injectable, preservative free Sintia Zahler DO Work Phone: [facility] 05-07-2013 influenza virus vaccine, unspecified formulation Teodora Ott [facility] 05-07-2013 influenza, seasonal, injectable Sintia Zahler DO Work Phone: [facility] NEGATED: Highlighted row has not occurred!05-03-2023 influenza virus vaccine, unspecified formulation STEVO NEFF [facility] NEGATED: Highlighted row has not occurred!05-11-2022 influenza virus vaccine, unspecified formulation Teodora Ott [facility] NEGATED: Highlighted row has not occurred!04-24-2021 influenza virus vaccine, unspecified formulation Ahimjamaica Do [facility] Payers Date Payer Category Payer Self-pay [id number] 2020 Unknown [id number] [facility] CHOICE [id number] 2015-2019 O [id number] [id number]. 7.3.356157.315 1959 Unknown [id number] 2.16.840.1.921968.3.579.2. 593 1959 Unknown [id number] 2.16.840.1.162238.3.579.2. 593 1959 Unknown [id number] 2.16.840.1.924787.3.579.2. 593 1959 Unknown [id number] 2.16.840.1.797854.3.579.2. 593 1959 Unknown [id number] 2.16.840.1.753049.3.579.2. 593 1959 Unknown [id number] 2.16.840.1.888596.3.579.2. 593 1959 Unknown [id number] 2.16.840.1.047843.3.579.2. 593 1959 Unknown [id number] 2.16.840.1.779951.3.579.2. 593 1959 Unknown [id number] 2.16.840.1.141172.3.579.2. 593 1959 Unknown [id number] 2.16.840.1.030648.3.579.2. 593 1959 Unknown [id number] 2.16.840.1.528742.3.579.2. 593 1959 Unknown [id number] 2.16.840.1.792654.3.579.2. 593 1959 Unknown [id number] 2.16.840.1.166494.3.579.2. 593 1959 Unknown [id number] 2.16.840.1.531448.3.579.2. 593 1959 Unknown [id number] 2.16.840.1.163832.3.579.2. 983 1959 Unknown [id number] 2.16.840.1.863278.3.579.2. 983 1959 Unknown [id number] 2.16.840.1.218521.3.579.2. 983 1959 Unknown [id number] 2.16.840.1.874084.3.579.2. 983 1959 Unknown [id number] 2.16.840.1.291142.3.579.2. 1959 Unknown [id number] 2.16.840.1.246305.3.579.2. 1959 Unknown [id number] 2.16.840.1.699343.3.579.2. 1959 Unknown [id number] 2.16.840.1.986289.3.579.2 1959 Unknown [id number] 2.16.840.1.787133.3.579.2 1959 Unknown [id number] 2.16.840.1.289368.3.579.2 1959 Unknown [id number] 2.16.840.1.991214.3.579.2 1959 Unknown [id number] 2.16.840.1.609681.3.579.2 1959 Unknown [id number] 2.16.840.1.578314.3.579.2 1959 Unknown [id number] 2.16.840.1.496548.3.579.2. 1959 Unknown [id number] 2.16.840.1.966878.3.579.2 1959 Unknown [id number] 2.16.840.1.890468.3.579.2 1959 Unknown [id number] 2.16.840.1.135248.3.579.2 1959 Unknown [id number] 2.16.840.1.556500.3.579.2 1959 Unknown [id number] 2.16.840.1.695439.3.579.2 1959 Unknown [id number] 2.16.840.1.661566.3.579.2. 1959 Unknown [id number] 2.16.840.1.683282.3.579.2. 1959 Unknown [id number] 2.16.840.1.615067.3.579.2. 1959 Unknown [id number] 2.16.840.1.695806.3.579.2. 1959 Unknown [id number] 2.16.840.1.005038.3.579.2. 1959 Unknown [id number] 2.16.840.1.998319.3.579.2. 1258 1959 Unknown [id number] 2.16.840.1.223331.3.579.2. 1258 1959 Unknown [id number] 2.16.840.1.329404.3.579.2. 1258 1959 Unknown [id number] 2.16.840.1.143659.3.579.2. 1258 1959 Unknown [id number] 2.16.840.1.916825.3.579.2. 1258 1959 Unknown [id number] 2.16.840.1.338698.3.579.2. 1258 1959 Unknown [id number] 2.16.840.1.832313.3.579.2. 1258 1959 Unknown [id number] 2.16.840.1.098151.3.579.2. 1258 1959 Unknown [id number] 2.16.840.1.698179.3.579.2. 1258 1959 Blue Cross Blue Shield [id number] 2.16.840.1.245865.19 1959 Self-pay [id number] 1959 Unknown [id number] 2.16.840.1.409130.3.249.13 Unknown [id number] Unknown [id number] 2.16.840.1.072915.3.579.2. 531 Unknown [id number] 2.16.840.1.520165.3.579.2. 531 Social History Date Type Detail Facility Start: 05-16-2017 End: 03-01-2023 Tobacco smoking status NHIS Never smoker [facility] Work Phone: Start: 1960 [facility] Start: 01-01-2015 End: 03-01-2023 Tobacco use and exposure Never used [facility] Start: 01-01-2015 End: 08-06-2023 Alcohol intake Current drinker of alcohol (finding) [facility] Start: 01-13-2022 End: 05-07-2022 Exposure to SARS-CoV-2 (event) Not sure [facility] Tobacco smoking status Never [facility] Start: 02-20-2023 End: 06-25-2023 Sex Assigned At Female [facility] Other Start: 01-11-2022 History SDOH Alcohol Comment [facility] Start: 1960 Sex Assigned At Female F [facility] Tobacco [facility] Comment on above: Denies. Tobacco smoking status No Smoking Status Entered [facility] Start: 02-20-2023 End: 06-25-2023 History of Social function [facility] Start: 05-23-2023 Alcohol Comment pop 2-3 cups per day [facility] Medical Equipment Procedure Code Equipment Code Equipment Origin al Text Equipment Identifier Dates Graft 5cc Bone Biocomposite Strip Augmatrix - [id number] Start: 09-14-2016 Allopure Bicorti pilar 8mm Champagne Start: 05-24-2015 Augmatrix Biocom posite Bone Graft Strip - 5cc Start: 05-24-2015 Screw 3.5 X 20mm Prabhu Lock Ortholoc 3dsi - [id number] Start: 05-24-2015 Screw 3.5 X 24mm Prabhu Lock Ortholoc 3dsi - [id number] Start: 05-24-2015 Plate 20mm 2hl C law Ii - [id number] Start: 05-24-2015 Plate 2mm Lapidu s Flat Ortholoc 3di Hallux - [id number] Start: 09-14-2016 Screw 3.5 X 20mm Lock Ortholoc 3di - [id number] Start: 09-14-2016 Screw 3.5 X 28mm Lock Ortholoc 3di - [id number] Start: 09-14-2016 Edge Lock Plate Start: 09-14-2016 Locking Screw Start: 09-14-2016 Nonlock Screw Start: 09-14-2016 Sht Screw Start: 09-14-2016 Plate Screws Graft 5cc Bone Biocomposite Strip Augmatrix - [id number] Start: 09-14-2016 Allopure Bicorti pilar 8mm Champagne Start: 05-24-2015 Augmatrix Biocom posite Bone Graft Strip - 5cc Start: 05-24-2015 Screw 3.5 X 20mm Prabhu Lock Ortholoc 3dsi - [id number] Start: 05-24-2015 Screw 3.5 X 24mm Prabhu Lock Ortholoc 3dsi - [id number] Start: 05-24-2015 Plate 20mm 2hl C law Ii - [id number] Start: 05-24-2015 Plate 2mm Lapidu s Flat Ortholoc 3di Hallux - [id number] Start: 09-14-2016 Screw 3.5 X 20mm Lock Ortholoc 3di - [id number] Start: 09-14-2016 Screw 3.5 X 28mm Lock Ortholoc 3di - [id number] Start: 09-14-2016 Edge Lock Plate Start: 09-14-2016 Locking Screw Start: 09-14-2016 Nonlock Screw Start: 09-14-2016 Sht Screw Start: 09-14-2016 Graft 5cc Bone Biocomposite Strip Augmatrix - [id number] Start: 09-14-2016 Allopure Bicorti pilar 8mm Champagne Start: 05-24-2015 Augmatrix Biocom posite Bone Graft Strip - 5cc Start: 05-24-2015 Screw 3.5 X 20mm Prabhu Lock Ortholoc 3dsi - [id number] Start: 05-24-2015 Screw 3.5 X 24mm Prabhu Lock Ortholoc 3dsi - [id number] Start: 05-24-2015 Plate 20mm 2hl C law Ii - [id number] Start: 05-24-2015 Plate 2mm Lapidu s Flat Ortholoc 3di Hallux - [id number] Start: 09-14-2016 Screw 3.5 X 20mm Lock Ortholoc 3di - [id number] Start: 09-14-2016 Screw 3.5 X 28mm Lock Ortholoc 3di - [id number] Start: 09-14-2016 Edge Lock Plate Start: 09-14-2016 Locking Screw Start: 09-14-2016 Nonlock Screw Start: 09-14-2016 Sht Screw Start: 09-14-2016 Graft 5cc Bone Biocomposite Strip Augmatrix - [id number] Start: 09-14-2016 Allopure Bicorti pilar 8mm Champagne Start: 05-24-2015 Augmatrix Biocom posite Bone Graft Strip - 5cc Start: 05-24-2015 Screw 3.5 X 20mm Prabhu Lock Ortholoc 3dsi - [id number] Start: 05-24-2015 Screw 3.5 X 24mm Prabhu Lock Ortholoc 3dsi - [id number] Start: 05-24-2015 Plate 20mm 2hl C law Ii - [id number] Start: 05-24-2015 Plate 2mm Lapidu s Flat Ortholoc 3di Hallux - [id number] Start: 09-14-2016 Screw 3.5 X 20mm Lock Ortholoc 3di - [id number] Start: 09-14-2016 Screw 3.5 X 28mm Lock Ortholoc 3di - [id number] Start: 09-14-2016 Edge Lock Plate Start: 09-14-2016 Locking Screw Start: 09-14-2016 Nonlock Screw Start: 09-14-2016 Sht Screw Start: 09-14-2016 Graft 5cc Bone Biocomposite Strip Augmatrix - [id number] Start: 09-14-2016 Allopure Bicorti pilar 8mm Champagne Start: 05-24-2015 Augmatrix Biocom posite Bone Graft Strip - 5cc Start: 05-24-2015 Screw 3.5 X 20mm Prabhu Lock Ortholoc 3dsi - [id number] Start: 05-24-2015 Screw 3.5 X 24mm Prabhu Lock Ortholoc 3dsi - [id number] Start: 05-24-2015 Plate 20mm 2hl C law Ii - [id number] Start: 05-24-2015 Plate 2mm Lapidu s Flat Ortholoc 3di Hallux - [id number] Start: 09-14-2016 Screw 3.5 X 20mm Lock Ortholoc 3di - [id number] Start: 09-14-2016 Screw 3.5 X 28mm Lock Ortholoc 3di - [id number] Start: 09-14-2016 Edge Lock Plate Start: 09-14-2016 Locking Screw Start: 09-14-2016 Nonlock Screw Start: 09-14-2016 Sht Screw Start: 09-14-2016 Graft 5cc Bone Biocomposite Strip Augmatrix - [id number] Start: 09-14-2016 Allopure Bicorti pilar 8mm Champagne Start: 05-24-2015 Augmatrix Biocom posite Bone Graft Strip - 5cc Start: 05-24-2015 Screw 3.5 X 20mm Prabhu Lock Ortholoc 3dsi - [id number] Start: 05-24-2015 Screw 3.5 X 24mm Prabhu Lock Ortholoc 3dsi - [id number] Start: 05-24-2015 Plate 20mm 2hl C law Ii - [id number] Start: 05-24-2015 Plate 2mm Lapidu s Flat Ortholoc 3di Hallux - [id number] Start: 09-14-2016 Screw 3.5 X 20mm Lock Ortholoc 3di - [id number] Start: 09-14-2016 Screw 3.5 X 28mm Lock Ortholoc 3di - [id number] Start: 09-14-2016 Edge Lock Plate Start: 09-14-2016 Locking Screw Start: 09-14-2016 Nonlock Screw Start: 09-14-2016 Sht Screw Start: 09-14-2016 Palacos R+G 1x40 Single With Gentamicin - [id number] Start: 01-23-2022 Revision Crs Rot ating Platform Insert Size 5 10mm Aox [id number] Start: 01-23-2022 Functional Status Date Assessment Result Facility 12-05-2022 Functional Status N/A [facility] 09-06-2022 Functional Status N/A [facility] 07-24-2022 Functional Status No [facility] 05-22-2022 Functional Status No [facility] 05-22-2022 Functional Status [facility] 05-21-2022 Functional Status N/A [facility] 05-11-2022 Functional Status N/A [facility] Clinical Notes 12-09-2015 to 08-06-2023 Sintia Jarvis DO - 08/06/2023 2:15 PM ESTTelephone Encounter - Jayde Chirinos - 04/23/2023 9:11 AM EDTTelephone Encounter - Stevo Neff MD - 04/22/2023 8:14 PM EDT Note Date & Type Note Facility 08-06-2023 History of Present illness Narrative Images from the original note were not included. Subjective Patient ID: Carolina Gomez is a 62 y.o. female. Chief Complaint YAG; Blurred Vision HPI YAG In both eyes. Blurred Vision In both eyes. Onset was gradual. Vision is blurred. Severity is moderate. Occurring constantly. Context: distance vision, near vision, reading, driving and night driving. Since onset it is gradually worsening. Associated symptoms include glare and haloes. Treatments tried include eye drops and glasses. Response to treatment was mild improvement. Comments Pt referred by Dr. Fuentes for YAG eval both eyes (OU). Right eye (OD) is worse then left eye (OS). Pt has noticed foggy vision at night over last few weeks. Last edited by Sintia Jarvis DO on 08/06/2023 2:38 PM. No current outpatient medications on file. (Ophthalmic Agents) No current facility-administered medications for this visit. (Ophthalmic Agents) Current Outpatient Medications (Other) Medication Sig Dispense Refill azelastine (Astelin) 0.1 % nasal spray Administer 2 sprays into affected nostril(s) in the morning and 2 sprays in the evening. budesonide-formoterol (Symbicort) 160-4.5 MCG/ACT inhaler Inhale 2 puffs in the morning and 2 puffs before bedtime. calcium carbonate 1500 (600 Ca) MG tablet Take 600 mg by mouth in the morning and 600 mg in the evening. Take with meals. celecoxib (CeleBREX) 200 MG capsule Take 200 mg by mouth in the morning and 200 mg before bedtime. clindamycin (Cleocin) 300 MG capsule TAKE 2 CAPSULES BY MOUTH 1 HOUR PRIOR TO DENTAL APPOINTMENT cyclobenzaprine (Flexeril) 10 MG tablet TAKE 1 TABLET BY MOUTH THREE TIMES A DAY NEEDED FOR BACK PAIN ergocalciferol (Vitamin D2) 1.25 MG (43814 UT) capsule TAKE 1 CAP BY MOUTH ON SATURDAY AND SATURDAY WITH FOOD FOR 8 WEEKS famotidine (Pepcid) 20 MG tablet Take 20 mg by mouth in the morning and 20 mg in the evening. fluticasone (Flonase) 50 MCG/ACT nasal spray Administer 2 sprays into affected nostril(s) in the morning. levoFLOXacin (Levaquin) 750 MG tablet TAKE 1 TABLET BY MOUTH EVERY DAY FOR 7 DAYS levothyroxine (Synthroid, Levoxyl) 137 MCG tablet Take 137 mcg by mouth in the morning. montelukast (Singulair) 10 MG tablet Take 10 mg by mouth in the morning and 10 mg before bedtime. Multiple Vitamin (Multi-Vitamin) tablet Take 1 tablet by mouth in the morning. Ozempic, 1 MG/DOSE, 4 MG/3ML solution pen-injector INJECT 1MG SUBCUTANEOUSLY ONCE WEEKLY 84 DAYS pantoprazole (ProtoNix) 40 MG EC tablet Take 40 mg by mouth. pregabalin (Lyrica) 75 MG capsule Take 1 capsule (75 mg) by mouth in the morning for 7 days. 7 capsule 0 ProAir RespiClick 108 (90 Base) MCG/ACT breath-activated inhaler 2 puff(s), Inhalation, q4hr for wheezing or SOB, 1 EA, Refill(s) 11, [facility]/pharmacy #[id number], 144.8, cm, 09/05/22 15:24:00 EST, Height/Length Dosing, 82.7, kg, 09/05/22 15:24:00 EST, Weight Dosing Spiriva Respimat 1.25 MCG/ACT inhaler 1 (one) time each day at the same time. upadacitinib ER (Rinvoq) 15 MG tablet sustained-release 24 hour Refills(s) 0 Wixela Inhub 250-50 MCG/ACT aerosol powder INHALE 1 PUFF INTO THE LUNGS TWICE A DAY FOR 90 DAYS *RINSE MOUTH AFTER USE* Current Facility-Administered Medications (Other) Medication Dose Route Frequency Provider Last Rate Last Admin denosumab (Prolia) injection 60 mg 60 mg Subcutaneous Once Merline Prieto NP Past Medical History: Diagnosis Date Adult idiopathic generalized osteoporosis (CMS/HCC) Asthma (CMS/HCC) Diabetes mellitus (CMS/HCC) Diverticulitis 2009 Enlarged pituitary gland (CMS/HCC) Lupus (CMS/HCC) Osteopenia RA (rheumatoid arthritis) (CMS/HCC) Squamous cell carcinoma in situ Thyroid disease (CMS/HCC) Allergies Allergen Reactions Apixaban Itching and Unknown Cefprozil Unknown Cephalexin Hives and Other Other Reaction(s): Hives Dabigatran Etexilate Mesylate Unknown Penicillin G Benzathine Other Reaction(s): Hives Penicillins Hives Review of Systems Constitutional: Negative. HENT: Negative. Eyes: Negative. Respiratory: Negative. Cardiovascular: Negative. Gastrointestinal: Negative. Genitourinary: Negative. Musculoskeletal: Negative. Skin: Negative. Neurological: Negative. Psychiatric/Behavioral: Negative. Hematological: Negative. Endocrine: Negative. Allergic/Immunologic: Negative. Objective Base Eye Exam Visual Acuity (Snellen - Linear) Right Left Dist sc 20/50 -1 20/60 Correction: Glasses Tonometry (Applanation, 2:41 PM) Right Left Pressure 20 20 Pupils Pupils Right PERRL Left PERRL Visual العلي Left Right Full Full Extraocular Movement Right Left Full Full Neuro/Psych Oriented x3: Yes Dilation Both eyes: 1.0% Mydriacyl @ 2:27 PM Additional Tests Keratometry K1 Denver K2 Denver Right 44.75 1 45 91 Left 45.5 177 45.75 87 Slit Lamp and Fundus Exam External Exam Right Left External Brow ptosis Brow ptosis Slit Lamp Exam Right Left Lids/Lashes Blepharitis, Dermatochalasis - upper lid Blepharitis, Dermatochalasis - upper lid Conjunctiva/Sclera White and quiet White and quiet Cornea Decreased tear film Decreased tear film Anterior Chamber Deep and quiet Deep and quiet Iris Round and reactive Round and reactive Lens Posterior chamber intraocular lens, 2+ Posterior capsular opacification Posterior chamber intraocular lens, 2+ Posterior capsular opacification Anterior Vitreous Normal Normal Fundus Exam Right Left Disc Normal Normal Macula Normal Normal Vessels Normal Normal Periphery Normal Normal Refraction Manifest Refraction Sphere Cylinder Denver Right +0.00 -0.50 137 Left -0.25 -0.25 123 Assessment/Plan Bilateral posterior capsular opacification - PCO OU: (Posterior Capsule Opacification) Can be observed without intervention if PCO is not visually significant. Nd:YAG laser capsulotomy may be considered if impairment of vision rises to a level that dose not meet the patient's functional needs or interferes with activities of daily living. Risks, benefits and alternatives to the procedure will be reviewed. If the patient has undergone Nd:YAG laser capsulotomy, they are to notify their warehouse logistics coordinator promptly if they have a significant change in symptoms, such as flashes of light (photopsia), an increase in floaters, loss of visual field or decrease in visual acuity. documented in this encounter [facility] 05-24-2023 Note [id number] [facility] 05-21-[address] DUNBAR'S POST OPERATIVE SHOULDER INSTRUCTIONS SURGEONS WRITTEN INSTRUCTIONS: 1. If you have been given a cryo cuff after surgery you should use it as much as possible for the first 24-48 hours. After that it is optional. TIP: Many patients prefer to use it a little longer because it helps reduce pain 2. You should wiggle your fingers frequently 3. Change your dressings in 1 day. If steri-strips have been applied DO NOT remove them. When the wound is clean and dry you may leave it open to air but again DO NOT remove any steri-strips that have been applied 4. You may shower in 1 day but do not let the water stream directly strike the wound 5. Do pendulum exercises for at least 10 minutes twice a day 6. If you have any problems or concerns, please call the office at [phone] 7. Follow up as scheduled [facility] 05-21-2023 Note [facility] Clinical Discharge Summary PERSON INFORMATION Name CAROLINA GOMEZ Age 62 Years 1960 Sex FEMALE Language Turkish PCP Makayla HDZ, Silvestre Tavera Marital Status Phone Med Service Observation Acct# Arrival 05/20/2023 06:11:47 Visit Reason SURGERY - LEFT REVERSE TOTAL SHOULDER Acuity LOS 000 29:07 Address: [address] [place] [address] [address] [facility] [id number] Comment: PROVIDER INFORMATION VITALS INFORMATION Vital Sign Triage Latest Temp Oral 36.8 DegC 36.9 DegC Temp Temporal Temp Intravascular Temp Axillary Temp Rectal 02 Sat 99 % 99 % Respiratory Rate 18 br/min 18 br/min Peripheral Pulse Rate 96 bpm 87 bpm Apical Heart Rate 80 bpm 80 bpm Blood Pressure 116 mmHg / 67 mmHg 129 mmHg / 66 mmHg Comment: MEDICAL INFORMATION Allergy Info: Eliquis; dabigatran; Keflex; penicillin; cefprozil Medication List: Medications That Were Updated - Follow Below Instructions Other Medications Updated: azelastine nasal (azelastine 137 mcg/inh (0.1%) nasal spray) 2 spray(s) Nasal 2 times a day. in the morning and at bedtime. Medications to Continue That Have Not Changed Other Medications albuterol (Albuterol (Eqv-ProAir HFA) 90 mcg/inh inhalation aerosol) 2 puff(s) Inhalation Every 4 hours as needed shortness of breath or wheezing. celecoxib (celecoxib 200 mg oral capsule) 1 cap(s) Oral 2 times a day. cyclobenzaprine (cyclobenzaprine 10 mg oral tablet) 1 tab(s) Oral 3 times a day as needed for spasm. fluticasone nasal (Flonase Allergy Relief 50 mcg/inh nasal spray) 1 puff(s) Nasal every day. fluticasone-salmeterol (Wixela Inhub 250 mcg-50 mcg inhalation powder) 1 puff(s) Inhalation 2 times a day. levothyroxine (levothyroxine 137 mcg (0.137 mg) oral tablet) 1 tab(s) Oral every day. montelukast (montelukast 10 mg oral tablet) 1 tab(s) Oral 2 times a day. ondansetron (ondansetron 4 mg oral tablet) 1 tab(s) Oral Every 8 hours as needed for nausea/vomiting. oxyCODONE (oxyCODONE 5 mg oral tablet) 1 tab(s) Oral Every 6 hours as needed Pain - Moderate for 5 Days. pantoprazole (pantoprazole 40 mg oral delayed release tablet) 1 tab(s) Oral every day. semaglutide (Ozempic (1 mg dose) 4 mg/3 mL subcutaneous solution) 1 Milligram Subcutaneous every week. tiotropium (Spiriva Respimat 1.25 mcg/inh inhalation aerosol) 2 puff(s) Inhalation every day. upadacitinib (Rinvoq 15 mg oral tablet, extended release) 1 tab(s) Oral every day. Comment: Lab and Radiology Results Laboratory or Other Results This Visit (last charted value for your 05/20/2023 visit) Chemistry 05/20/2023 9:42 AM Glucose, POC: 127 mg/dL -- Normal range between ( 74 and 118 ) Diagnostic Radiology 05/20/2023 10:13 AM XR Shoulder 1 View Left: XR Shoulder 1 View Left Radiology Report 05/20/2023 10:13 AM Radiology Report: Radiology Report DIET & ACTIVITY Patient Activity Level: Patient Diet: ADA Diet Patient Activity Restrictions: DISCHARGE INFORMATION Discharge Disposition: Discharge Location: DEPART REASON INCOMPLETE INFORMATION PATIENT EDUCATION INFORMATION Instructions: Bettina- Post Op Shoulder (CUSTOM) Follow up: With: Address: When: Rosa Dunbar [address] [place] [address], [address] [place] [id number] [facility] [place] (1) 05/28/2023 10:30 AM DIAGNOSIS Arthritis of left glenohumeral joint Comment: PHYS DOC NOTES [facility] 04-23-2023 Miscellaneous Notes Called patient LVM and sent letter in regards to scheduling below. Jayde Chirinos April 23, 2023 9:12 AM Not seen and no labs available since 05/2022. May schedule nonfasting labs (active since 08/2022) for medication refill. Otherwise, please defer medication refills to current provider Thank you. Pharmacy electronically requests the following refill(s) Requested Prescriptions Pending Prescriptions Disp Refills celecoxib (CELEBREX) 200 mg capsule [Pharmacy Med Name: CELECOXIB 200 MG CAPSULE] 180 capsule 2 Sig: take 1 capsule by mouth twice a day Monika Menendez MA Most recent Rheumatology visit: 05/07/2022 (with Stevo Neff) Recent Office Visits - This Specialty 05/07/2022 Rheumatoid arthritis of multiple sites without rheumatoid factor (HCC) Rheumatology Stevo Neff MD 10/10/2005 IMMUNOLOGICAL FIND OTHR OR UNSPEC Rheumatology Laura Harper MD Upcoming Rheumatology Appointments - Next 365 Days Visit Type Date Time Department VIDEO SPEC EST 09/30/2023 7:00 AM [facility] CBC: None on file in the last 6 months Vitamin D: None on file in the last 6 months LFT: None on file in the last 6 months Hepatic Function: Creatinine: None on file in the last 6 months ESR/CRP: None on file in the last 6 months Uric Acid: None on file in the last 6 months Open Standing (Multiple Instance) Lab Orders None Open Future (Single Instance) Lab Orders Expected Expires Ordered COMP METABOLIC PANEL [SQCMP] 08/09/22 05/09/23 05/09/22 Auth. provider: Stevo Neff MD Assoc. diagnoses: Elevated LFTs CBC [SQCBC] 08/09/22 05/09/23 05/09/22 Auth. provider: Stevo Neff MD Assoc. diagnoses: Anemia of chronic disease SED RATE WESTERGREN [SQWSR] 08/09/22 05/09/23 05/09/22 Auth. provider: Stevo Neff MD Assoc. diagnoses: Elevated sed rate, Elevated C-reactive protein (CRP) C-REACTIVE PROTEIN (CRP) [SQCRP] 08/09/22 05/09/23 05/09/22 Auth. provider: Stevo Neff MD Assoc. diagnoses: Elevated sed rate, Elevated C-reactive protein (CRP) VITAMIN D 25 HYDROXY [SQVITD] 08/09/22 05/09/23 05/09/22 Auth. provider: Stevo Neff MD Assoc. diagnoses: Vitamin D deficiency documented in this encounter [facility] 03-20-2023 Note HPI Staff This visit was conducted via two-way, real-time interactive video communications by Marisela Canales from my office using [employer]. The patient was located at their home, located at [address] [place] [address] [phone], with _ in attendance. A signed authorization for treatment has been obtained via our standard authorization packet or by verbal consent by the patient or their legal market survey representative. The patient's identity and location in [place] has been verified by our office staff. If it is determined that the patient should be evaluated in the clinic, the patient will be directed to the appropriate clinic or venue. A limited physical exam will be conducted reviewing those areas of the body visible via telecommunications. Total time spent preparing the chart, conducting the encounter with the patient and family, and time spent documenting, reviewing, and ordering tests was 30 minutes. All records and visits comply with HIPAA standards. Patient or Guardian reported vitals: Temp: 98.5 Wt: 183 Ht: _ BP: _ HR: _ Sp02: _ Respiratory C/O: Onset: 5 days ago Body aches: no Chest congestion: yes Chills: no Cough: yes Ear complaints: no Eye itching/watering: no Fever: no Headache: yes Nasal congestion: yes Nasal discharge: yes clear Poor appetite: no Reduced activity: no Sinus pain/pressure: yes Sneezing: yes Sputum production: yes yellow Wheezing: yes Ill contacts: yes + covid Remedies tried: Questions/Concerns: Pt tested positive for covid 2 weeks ago , pt continues with SOB and feeling chest is congested with wheezing. Doing Breathing treatments morning and night. pt is on day 3 of methylprednisolone patient Spo2 running 93%-95% History of Present Illness pt presents today via video conference with cough, congestion, wheezing, SOB Review of Systems ROS - Provider Constitutional: no fever, no chills, no sweats, no fatigue Respiratory: yes shortness of breath, yes cough, no orthopnea, yes wheezing. Cardiovascular: no chest pain, no palpitations, no edema. Neurologic: no headache, no dizziness, no numbness, no weakness. Physical Exam physical exam not performed. provider is able to hear deep cough during visit Assessment/Plan 1. Exposure to COVID-19 virus (Z20.822: Contact with and (suspected) exposure to COVID-19) pt was diagnosed with covid last weekend. last time pt had covid she was hospitalized with pneumonia. Ordered: benzonatate, 200 mg = 1 cap(s), Oral, TID, X 7 day(s), # 21 cap(s), Refills(s) 0, [id number] 143.2, cm, 12/05/22 15:37:00 EDT, Height/Length Dosing, 85.3, kg, 12/05/22 15:37:00 EDT, Weight Dosing nirmatrelvir-ritonavir, See Instructions, Oral, BID, 30 tab(s), Refill(s) 0, 3 Tablets twice daily for 5 days, [facility]/pharmacy #[id number], 143.2, cm, 12/05/22 15:37:00 EDT, Height/Length Dosing, 85.3, kg, 12/05/22 15:37:00 EDT, Weight Dosing TELEHEALTH Office Visit Level 3 Est 49853 2. Cough (R05.9: Cough, unspecified) pt c/o severe cough. will order chest xray. pt encouraged to use nebulizer every 4 hours. pt is on day 3 of medrol dose pack. Ordered: benzonatate, 200 mg = 1 cap(s), Oral, TID, X 7 day(s), # 21 cap(s), Refills(s) 0, Pharmacy: [facility]/pharmacy #[id number], 143.2, cm, 12/05/22 15:37:00 EDT, Height/Length Dosing, 85.3, kg, 12/05/22 15:37:00 EDT, Weight Dosing nirmatrelvir-ritonavir, See Instructions, Oral, BID, 30 tab(s), Refill(s) 0, 3 Tablets twice daily for 5 days, [facility]/pharmacy #[id number], 143.2, cm, 12/05/22 15:37:00 EDT, Height/Length Dosing, 85.3, kg, 12/05/22 15:37:00 EDT, Weight Dosing TELEHEALTH Office Visit Level 3 Est 78206 3. Nasal congestion (R09.81: Nasal congestion) mucinex suggested Ordered: benzonatate, 200 mg = 1 cap(s), Oral, TID, X 7 day(s), # 21 cap(s), Refills(s) 0, Pharmacy: [facility]/pharmacy #[id number], 143.2, cm, 12/05/22 15:37:00 EDT, Height/Length Dosing, 85.3, kg, 12/05/22 15:37:00 EDT, Weight Dosing nirmatrelvir-ritonavir, See Instructions, Oral, BID, 30 tab(s), Refill(s) 0, 3 Tablets twice daily for 5 days, [facility]acy #[id number], 143.2, cm, 12/05/22 15:37:00 EDT, Height/Length Dosing, 85.3, kg, 12/05/22 15:37:00 EDT, Weight Dosing TELEHEALTH Office Visit Level 3 Est 18212 4. Shortness of breath (R06.02: Shortness of breath) pt feeling sob with wheezing. chest xray ordered, levofloxacin sent to pharmacy Ordered: benzonatate, 200 mg = 1 cap(s), Oral, TID, X 7 day(s), # 21 cap(s), Refills(s) 0, Pharmacy: [facility]/pharmacy #[id number], 143.2, cm, 12/05/22 15:37:00 EDT, Height/Length Dosing, 85.3, kg, 12/05/22 15:37:00 EDT, Weight Dosing nirmatrelvir-ritonavir, See Instructions, Oral, BID, 30 tab(s), Refill(s) 0, 3 Tablets twice daily for 5 days, [id number], 143.2, cm, 12/05/22 15:37:00 EDT, Height/Length Dosing, 85.3, kg, 12/05/22 15:37:00 EDT, Weight Dosing TELEHEALTH Office Visit Level 3 Est 48794 5. Wheezing (R06.2: Wheezing) see above Ordered: benzonatate, 200 mg = 1 cap(s), Oral, TID, X 7 day(s) (more content not included)... [facility] Comment on above: Result Comment: Elec tronically Signed By: Marisela Canales\.br\Date and Time Signed: 03/20/23 12:57 EDT 03-18-2023 Miscellaneous Notes Rosita menezes approval of Rinvoq. Approved until 03/17/2024. PA form received. Completed and faxed to [employer] along with chart notes. [facility] calling regarding prior auth for Rinvoq ER. They will be faxing over the renewal form today. Can call prior auth at [phone]. Pharm is [phone]. documented in this encounter [facility] 02-20-2023 History of Present illness Narrative Ortho Nurse - Established Patient Intake Room#: 5 4m R TKA Pt stated she is doing good and denies any pain at this time.0/10 on the pain scale. Pt stated her only complaint is going up and down steps it is a little week. Date: 02/20/2023 2:51 PM Patient: Carolina Gomez MR#: [id number] : 1960 Age: 62 y.o. Referring Physician: Self, Self Insurance: Payor: [employer] / Plan: [employer] HMO PPO POS / Product Type: *No Product type* / Chief Complaint Patient presents with Right Knee - Follow-up 1 yr.Rt.TKR follow-up. Patient states she has no pain. However,she does have weakness when going up steps. Visit Vitals Temp 98.6 F (37 C) Ht 1.499 m (4' 11 ) Wt 78.5 kg (173 lb 1 oz) BMI 34.95 kg/m Pain 1. Are you having pain? 2. On a scale from 1-10: Presence of Pain: denies pain/discomfort Recent Labs No results found for: CRP No results found for: SEDRATE Lab Results Component Value Date WBC 10.6 01/24/2022 HGB 9.4 (L) 01/24/2022 HCT 28.9 (L) 01/24/2022 PLATELET 262 01/24/2022 MCV 89.6 01/24/2022 History Past Medical History: Diagnosis Date Asthma Diabetes mellitus pre GERD (gastroesophageal reflux disease) Hypothyroidism PE (pulmonary thromboembolism) Past Surgical History: Procedure Laterality Date ARTHROPLASTY KNEE TOTAL Right 01/23/2022 Laterality: Right; Surgeon: Puja Deluca MD; Location: [facility] OR ARTHROPLASTY KNEE TOTAL Bilateral partial CHOLECYSTECTOMY FOOT SURGERY Bilateral corrective surgery HYSTERECTOMY REMOVAL CATARACT (PEM) Bilateral Family History: Her family history is not on file. Social History: Her reports that she has never smoked. She has never used smokeless tobacco. She reports current alcohol use. She reports that she does not use drugs. Outpatient Medications Prior to Visit Medication Sig Dispense Refill acetaminophen 325 MG tablet Take 2 tablets by mouth every 4 hours as needed for Mild Pain. 50 tablet 1 albuterol 108 (90 Base) MCG/ACT Aero Soln inhaler INHALE 2 PUFFS BY MOUTH EVERY 4 HOURS NEEDED Azelastine HCl 137 MCG/SPRAY Solution nasal spray USE 2 SPRAYS IN EACH NOSTRIL TWICE DAILY, NEED TO USE REGULARLY FOR BENEFIT benzonatate 200 MG capsule TAKE 1 CAPSULE BY MOUTH EVERY 8 HOURS NEEDED FOR COUGH cetirizine 10 MG tablet 2 times daily. cholestyramine 4 g Pack Take 4 g by mouth daily every morning. Denosumab (PROLIA SC) every 6 months. DISABILITY PLACARD Disability placard end date 05/01/2022. Dx 719.7 1 Each 0 docusate 100 MG capsule Take 1 capsule by mouth 2 times daily. 60 capsule 0 doxycycline monohydrate 100 MG tablet Take 1 tablet by mouth 2 times daily. fluticasone 50 MCG/ACT Suspension nasal spray 2 sprays by Nasal route daily. HERBAL PRODUCT daily. Nerve 911 levothyroxine 137 MCG tablet Take 137 mcg by mouth daily. Multiple Vitamin (Multi-Vitamin) tablet Take 1 tablet by mouth daily every morning. omeprazole [address] capsule TAKE 1 CAPSULE BY MOUTH EVERY MORNING *CALL OFFICE TO SCHEDULE FOLLOW UP* ondansetron 4 MG tablet TAKE 1 TABLET BY MOUTH EVERY 12 HOURS NEEDED FOR NAUSEA FOR 5 DAYS Ozempic, 1 MG/DOSE, 4 MG/3ML Solution Pen-injector INJECT 1MG SUBCUTANEOUSLY ONCE WEEKLY Probiotic Product (Align) capsule TAKE 1 CAPSULE DAILY AFTER COMPLETING ANTIBIOTICS COURSE triamcinolone 0.1 % Ointment ointment APPLY TO AFFECTED AREAS OF RASH TWICE DAILY NEEDED FOR 30 DAYS Upadacitinib (RINVOQ PO) Take 15 mg by mouth daily. Wixela Inhub 250-50 MCG/ACT Aerosol Powder, breath activated inhaler INHALE 1 PUFF INTO LUNGS TWICE DAILY. USE REGULARLY FOR BENEFIT. RINSE MOUTH AFTER USE zafirlukast 20 MG tablet Take 1 tablet by mouth 2 times daily. celecoxib 200 MG capsule Take 1 capsule by mouth 2 times daily. 84 capsule 0 Enoxaparin Sodium 40 MG/0.4ML injection Inject 0.4 mL under the skin daily. 12 mL 0 oxyCODONE 5 MG tablet Take 1 tablet by mouth every 12 hours as needed for Severe Pain for up to 7 days. Wean as tolerated. 14 tablet 0 No facility-administered medications prior to visit. Allergies: She is allergic to eliquis [apixaban], keflex [cephalexin], and penicillins. HPI: Patient is here today for evaluation of their operative knee. She is status post total knee revision arthroplasty. She is about a year out, reports that she is doing well and is pleased with the outcome of the intervention. The knee feels better now than it did before, and she is not having any new symptoms with it.weakness at times. PHYSICAL EXAM: The operative lower extremity is soft, nontender, full and supple motion. No pain, no impingement. No instability. She has full return of motion, 0-120 degrees, stable examination to varus and valgus stress with normal balance throughout the arc of motion. The contralateral extremity has full motion, normal stability, no tenderness. Both extremities have normal neurovascular status. Skin is otherwise intact. 5/5 strength bl legs DIAGNOSTIC STUDIES/INTERPRETATION: Plain film radiographs reviewed. She has a Cemented total knee arthroplasty in good position and alignment. No evidence of prosthetic implant loosening or migration. IMPRESSION: Stable status post total revision knee arthroplasty, doing well. PLAN: I am pleased with the outcome of intervention. She has made an excellent recovery. I expect continued improvement in strength and mobility moving forward. I recommend followup in 2 years for repeat clinical and radiographic examination or sooner if any new symptoms develop. Tylenol may be used to manage any aches and pains as needed. She will call with any questions or concerns in the meantime. Encouraged her to be more dilligent with her exercise. She will attempt if unsuccessful will consider phys therapy. Greater than 20 minutes time was spent in review of the medical records, review of previous imaging, and more than 50% of that time was spent on face to face time with patient. Medardo Vuong APRN-MAKEDA I have reviewed the findings of the clinical mining support worker and agree with their assessment. Ortho Nurse - Established Patient Intake Room#: 5 4m R TKA Pt stated she is doing good and denies any pain at this time.0/10 on the pain scale. Pt stated her only complaint is going up and down steps it is a little week. Date: 02/20/2023 2:51 PM Patient: Carolina Gomez MR#: [id number] : 1960 Age: 62 y.o. Referring Physician: Self, Self Insurance: Payor: [employer] / Plan: [employer] HMO PPO POS / Product Type: *No Product type* / Chief Complaint Patient presents with Right Knee - Follow-up 1 yr.Rt.TKR follow-up. Patient states she has no pain. However,she does have weakness when going up steps. Visit Vitals Temp 98.6 F (37 C) Ht 1.499 m (4' 11 ) Wt 78.5 kg (173 lb 1 oz) BMI 34.95 kg/m Pain 1. Are you having pain? 2. On a scale from 1-10: Presence of Pain: denies pain/discomfort Recent Labs No results found for: CRP No results found for: SEDRATE Lab Results Component Value Date WBC 10.6 01/24/2022 HGB 9.4 (L) 01/24/2022 HCT 28.9 (L) 01/24/2022 PLATELET 262 01/24/2022 MCV 89.6 01/24/2022 History Past Medical History: Diagnosis Date Asthma Diabetes mellitus pre GERD (gastroesophageal reflux disease) Hypothyroidism PE (pulmonary thromboembolism) Past Surgical History: Procedure Laterality Date ARTHROPLASTY KNEE TOTAL Right 01/23/2022 Laterality: Right; Surgeon: Puja Deluca MD; Location: [facility] OR ARTHROPLASTY KNEE TOTAL Bilateral partial CHOLECYSTECTOMY FOOT SURGERY Bilateral corrective surgery HYSTERECTOMY REMOVAL CATARACT (PEM) Bilateral Family History: Her family history is not on file. Social History: Her reports that she has never smoked. She has never used smokeless tobacco. She reports current alcohol use. She reports that she does not use drugs. Outpatient Medications Prior to Visit Medication Sig Dispense Refill acetaminophen 325 MG tablet Take 2 tablets by mouth every 4 hours as needed for Mild Pain. 50 tablet 1 albuterol 108 (90 Base) MCG/ACT Aero Soln inhaler INHALE 2 PUFFS BY MOUTH EVERY 4 HOURS NEEDED Azelastine HCl 137 MCG/SPRAY Solution nasal spray USE 2 SPRAYS IN EACH NOSTRIL TWICE DAILY, NEED TO USE REGULARLY FOR BENEFIT benzonatate 200 MG capsule TAKE 1 CAPSULE BY MOUTH EVERY 8 HOURS NEEDED FOR COUGH cetirizine 10 MG tablet 2 times daily. cholestyramine 4 g Pack Take 4 g by mouth daily every morning. Denosumab (PROLIA SC) every 6 months. DISABILITY PLACARD Disability placard end date 05/01/2022. Dx 719.7 1 Each 0 docusate 100 MG capsule Take 1 capsule by mouth 2 times daily. 60 capsule 0 doxycycline monohydrate 100 MG tablet Take 1 tablet by mouth 2 times daily. fluticasone 50 MCG/ACT Suspension nasal spray 2 sprays by Nasal route daily. HERBAL PRODUCT daily. Nerve 911 levothyroxine 137 MCG tablet Take 137 mcg by mouth daily. Multiple Vitamin (Multi-Vitamin) tablet Take 1 tablet by mouth daily every morning. omeprazole [address] capsule TAKE 1 CAPSULE BY MOUTH EVERY MORNING *CALL OFFICE TO SCHEDULE FOLLOW UP* ondansetron 4 MG tablet TAKE 1 TABLET BY MOUTH EVERY 12 HOURS NEEDED FOR NAUSEA FOR 5 DAYS Ozempic, 1 MG/DOSE, 4 MG/3ML Solution Pen-injector INJECT 1MG SUBCUTANEOUSLY ONCE WEEKLY Probiotic Product (Align) capsule TAKE 1 CAPSULE DAILY AFTER COMPLETING ANTIBIOTICS COURSE triamcinolone 0.1 % Ointment ointment APPLY TO AFFECTED AREAS OF RASH TWICE DAILY NEEDED FOR 30 DAYS Upadacitinib (RINVOQ PO) Take 15 mg by mouth daily. Wixela Inhub 250-50 MCG/ACT Aerosol Powder, breath activated inhaler INHALE 1 PUFF INTO LUNGS TWICE DAILY. USE REGULARLY FOR BENEFIT. RINSE MOUTH AFTER USE zafirlukast 20 MG tablet Take 1 tablet by mouth 2 times daily. celecoxib 200 MG capsule Take 1 capsule by mouth 2 times daily. 84 capsule 0 Enoxaparin Sodium 40 MG/0.4ML injection Inject 0.4 mL under the skin daily. 12 mL 0 oxyCODONE 5 MG tablet Take 1 tablet by mouth every 12 hours as needed for Severe Pain for up to 7 days. Wean as tolerated. 14 tablet 0 No facility-administered medications prior to visit. Allergies: She is allergic to eliquis [apixaban], keflex [cephalexin], and penicillins. documented in this encounter [facility] 12-05-2022 Hospital Discharge instructions Patient Education 12/05/2022 15:55:32 Food Choices for Gastroesophageal Reflux Disease, Adult Food Choices for Gastroesophageal Reflux Disease, Adult When you have gastroesophageal reflux disease (GERD), the foods you eat and your eating habits are very important. Choosing the right foods can help ease the discomfort of GERD. Consider working with a dietitian to help you make healthy food choices. What are tips for following this plan? Reading food labels Look for foods that are low in saturated fat. Foods that have less than 5% of daily value (DV) of fat and 0 g of trans fats may help with your symptoms. Cooking Cook foods using methods other than frying. This may include baking, steaming, grilling, or broiling. These are all methods that do not need a lot of fat for cooking. To add flavor, try to use herbs that are low in spice and acidity. Meal planning Choose healthy foods that are low in fat, such as fruits, vegetables, whole grains, low-fat dairy products, lean meats, fish, and poultry. Eat frequent, small meals instead of three large meals each day. Eat your meals slowly, in a relaxed setting. Avoid bending over or lying down until 2 3 hours after eating. Limit high-fat foods such as fatty meats or fried foods. Limit your intake of fatty foods, such as oils, butter, and shortening. Avoid the following as told by your health care provider: ?Foods that cause symptoms. These may be different for different people. Keep a food diary to keep track of foods that cause symptoms. ?Alcohol. ?Drinking large amounts of liquid with meals. ?Eating meals during the 2 3 hours before bed. Lifestyle Maintain a healthy weight. Ask your health care provider what weight is healthy for you. If you need to lose weight, work with your health care provider to do so safely. Exercise for at least 30 minutes on 5 or more days each week, or as told by your health care provider. Avoid wearing clothes that fit tightly around your waist and chest. Do not use any products that contain nicotine or tobacco. These products include cigarettes, chewing tobacco, and vaping devices, such as e-cigarettes. If you need help quitting, ask your health care provider. Sleep with the head of your bed raised. Use a wedge under the mattress or blocks under the bed frame to raise the head of the bed. Chew sugar-free gum after mealtimes. What foods should I eat? Eat a healthy, well-balanced diet of fruits, vegetables, whole grains, low-fat dairy products, lean meats, fish, and poultry. Each person is different. Foods that may trigger symptoms in one person may not trigger any symptoms in another person. Work with your health care provider to identify foods that are safe for you. The items listed above may not be a complete list of recommended foods and beverages. Contact a dietitian for more information. What foods should I avoid? Limiting some of these foods may help manage the symptoms of GERD. Everyone is different. Consult a dietitian or your health care provider to help you identify the exact foods to avoid, if any. Fruits Any fruits prepared with added fat. Any fruits that cause symptoms. For some people this may include citrus fruits, such as oranges, grapefruit, pineapple, and fawn. Vegetables Deep-fried vegetables. [place] Citizen fries. Any vegetables prepared with added fat. Any vegetables that cause symptoms. For some people, this may include tomatoes and tomato products, chili peppers, onions and garlic, and horseradish. Grains Pastries or quick breads with added fat. Meats and other proteins High-fat meats, such as fatty beef or pork, hot dogs, ribs, ham, sausage, salami, and ruiz. Fried meat or protein, including fried fish and fried chicken. Nuts and nut butters, in large amounts. Dairy Whole milk and chocolate milk. Sour cream. Cream. Ice cream. Cream cheese. Milkshakes. Fats and oils Butter. Margarine. Shortening. Ghee. Beverages Coffee and tea, with or without caffeine. Carbonated beverages. Sodas. Energy drinks. Fruit juice made with acidic fruits, such as orange or grapefruit. Tomato juice. Alcoholic drinks. Sweets and desserts Chocolate and cocoa. Donuts. Seasonings and condiments Pepper. Peppermint and spearmint. Added salt. Any condiments, herbs, or seasonings that cause symptoms. For some people, this may include fox, hot sauce, or vinegar-based salad dressings. The items listed above may not be a complete list of foods and beverages to avoid. Contact a dietitian for more information. Questions to ask your health care provider Diet and lifestyle changes are usually the first steps that are taken to manage symptoms of GERD. If diet and lifestyle changes do not improve your symptoms, talk with your health care provider about taking medicines. Where to find more information [employer]: aboutgerd.org Summary When you have gastroesophageal reflux disease (GERD), food and lifestyle choices may be very helpful in easing the discomfort of GERD. Eat frequent, small meals instead of three large meals each day. Eat your meals slowly, in a relaxed setting. Avoid bending over or lying down until 2 3 hours after eating. Limit high-fat foods such as fatty meats or fried foods. This information is not intended to replace advice given to you by your health care provider. Make sure you discuss any questions you have with your health care provider. Document Revised: 12/26/2020 Document Reviewed: 12/26/2020 [employer] Patient Education 2022 [employer]. Follow Up Care 11/27/2022 15:55:14 With:Teodora Ott CNP Address: When:3 months [facility] 11-20-2022 Note PROCEDURE: US SINGLE QUAD RT UPPER DATE: 11/20/2022 7:10 AM CDT COMPARISONS: CT abdomen pelvis 11/19/2022 INDICATION FOR EXAMINATION: 62 years Female GENERALIZED ABDOMINAL PAIN TECHNIQUE: Grayscale and color Doppler technique were utilized to evaluate the right upper quadrant. FINDINGS: LIVER: There is no evidence of focal hepatic abnormalities. Hepatic echogenicity is within normal limits. BASHIR HEPATIS: The common bile duct measures 16 mm in diameter. There is no evidence of intrahepatic biliary dilatation. The portal vein is patent with appropriate hepatopedal flow direction. GALLBLADDER: There is evidence of previous cholecystectomy. PANCREAS: The visualized portions of the pancreas show no evidence of ultrasonic abnormality. RIGHT KIDNEY: The right kidney measures 9.1 x 4.8 x 4.5 cm. There is no evidence of hydronephrosis. There is no ultrasonic evidence of solid focal renal masses or other significant renal parenchymal abnormalities. ASSESSMENT: Enlargement of the main bile duct probably related to previous cholecystectomy. No evidence of choledocholithiasis on this ultrasound exam. Findings are similar to CT of 11/19/2022. Electronically authenticated by: GEOVANNY DUNBAR Date: 2022-11-20 09:26 [facility] 10-19-2022 Note PROCEDURE: XR FOOT L T MIN 3 VIEWS HISTORY: Pain in left foot COMPARISON: XR foot left 01/21/2020 FINDINGS: BONES:Prior talocalcaneal fusion and medial midfoot fusion; no evidence of hardware fracture or loosening. No bone fracture dislocation. Mild degenerative changes the first metatarsophalangeal joint. Prior resection of head of fifth proximal phalanx. Chronic flattening of plantar arch. SOFT TISSUES:No visible soft tissue swelling. EFFUSION:None visible. OTHER: Negative. IMPRESSION: 1. Stable surgical changes without evidence of hardware failure or change in alignment. 2. No appreciable acute abnormality. Electronically authenticated by: NHUNG DONG Date: 2022-10-19 10:44 [facility] 10-05-2022 Evaluation note Encounter Date Diagnosis Assessment Notes Sep, Dysuria (ICD-10 - R30.0) Sep, Urinary tract infection without hematuria, site unspecified (ICD-10 - N39.0) Urinary tract infection (UTI) home care material was printed Drink plenty fluids, get plenty of rest. Take the Cipro as prescribed until gone. Continue home medications as prescribed. Continue to take the Azo. Follow-up with your family physician if no improvement in 2 to 3 days. [employer] Other 04-03-2023 Evaluation + Plan note Future Scheduled Tests Laboratory* HgbA1c 10/01/22 * TSH With T4fr Reflex 10/01/22 * CBC w/ Auto Diff 05/10/23 * CBC w/ Auto Diff 10/01/22 * CBC w/ Auto Diff 11/21/22 * Comprehensive Metabolic Panel 10/01/22 * Comprehensive Metabolic Panel 11/21/22 * Ferritin 11/21/22 * Iron Level 11/21/22 * Iron Percent Saturation 11/21/22 * Lipid Panel 10/01/22 [facility]03-21-2023 Note [id number]:127[facility] 09-07-2022 Evaluation + Plan noteExtracted from: Title:ED Note Author:Shalom Toledo DO Nigel Date :09/07/22 Asthma exacerbation (J45.901 : Unspecified asthma with (acute) exacerbation) Sinusitis (J32.9: Chronic sinusitis, unspecified) Orders: albuterol-ipratropium, 9 mL, Soln-Inh, Inhalation, Once, Stop date 09/07/22 0:09:00 EST, STAT, Start date 09/07/22 0:09:00 EST brompheniramine/dextromethorphan/PSE, 5 mL, Oral, QID for cold symptoms, 200 mL, Refill(s) 0, [facility]/pharmacy #[id number], 150, cm, 09/06/22 23:56:00 EST, Height/Length Dosing, 87.3, kg, 09/06/22 23:56:00 EST, Weight Dosing brompheniramine/dextromethorphan/PSE, 5 mL, Syrup, Oral, Once, Stop date 09/07/22 1:38:00 EST, STAT, Start date 09/07/22 1:38:00 EST doxycycline, 100 mg = 1 tab(s), Oral, q12hr, X 7 day(s), # 14 tab(s), Refills(s) 0, Pharmacy: [facility]/pharmacy #[id number], 150, cm, 09/06/22 23:56:00 EST, Height/Length Dosing, 87.3, kg, 09/06/22 23:56:00 EST, Weight Dosing methylPREDNISolone, 125 mg = 2 mL, Injection, IV Push, Once, Stop date 09/07/22 0:08:00 EST, STAT, Start date 09/07/22 0:08:00 EST, 09/07/22 0:08:00 EST predniSONE, 50 mg = 1 tab(s), Oral, Daily, X 5 day(s), # 5 tab(s), Refills(s) 0, Pharmacy: [facility]/pharmacy #[id number], 150, cm, 09/06/22 23:56:00 EST, Height/Length Dosing, 87.3, kg, 09/06/22 23:56:00 EST, Weight Dosing Sodium Chloride 0.9% intravenous solution, 1,000 mL, Soln-IV, IV, Once, Stop date 09/07/22 0:08:00 EST, STAT, Start date 09/07/22 0:08:00 EST, Infuse over 61, minute(s) Sodium Chloride 0.9% intravenous solution, Soln-IV, Misc, Once, Stop date 09/07/22 0:17:16 EST, Physician Stop, 09/07/22 0:17:16 EST Automated Diff B-Type Natriuretic Peptide Basic Metabolic Panel CBC w/ Auto Diff Continuous Pulse Oximetry ECG 12 Lead Adult ED Cardiac Monitoring eGFR Hepatic Function Panel Oxygen Therapy PT & PTT Saline Lock Insert Troponin 0 Hr. XR Chest Single View Future Appointments Appointment Date:09/11/2022 03:00:00 PM Scheduled Provider:ALINE GUERRERO MD Location:[facility] Appointment Type: ER/Hospital Follow Up Appointment Date:09/25/2022 03:20:00 PM Scheduled Provider:Teodora Ott CNP Location[facility] Appointment Type:[facility] Follow Up Appointment Date:10/01/2022 07:00:00 AM Scheduled Provider:Silvestre Benavides MD Location:[facility] Appointment Type: Open Appointment Date:11/21/2022 03:00:00 PM Scheduled Provider:Haim Do DO Location:.ONCOLOGY Appointment Type:ONC Office Visit 15 (FT) Future Scheduled Tests Laboratory* CBC w/ Auto Diff 04/05/22 * CBC w/ Auto Diff 11/21/22 * Comprehensive Metabolic Panel 11/21/22 * Ferritin 11/21/22 * Iron Level 11/21/22 * Iron Percent Saturation 11/21/22 Radiology* NM Gastric Emptying Study 10/13/21 [facility]03-10-2023 Hospital Discharge instructions Patient Education 09/07/2022 02:01:10 Sinusitis, Adult, Genj-vz-Qqgr Sinusitis, Adult Sinusitis is soreness and swelling (inflammation) of your sinuses. Sinuses are hollow spaces in thebones around your face. They are located: Around your eyes. In the middle of your forehead. Behind your nose. In your cheekbones. Your sinuses and nasal passages are lined with a fluid called mucus. Mucus drains out of your sinuses. Swelling can trap mucus in your sinuses. This lets germs (bacteria, virus, or fungus) grow, which leads to infection. Most of the time, this condition is caused by a virus. What are the causes? This condition is caused by: Allergies. Asthma. Germs. Things that block your nose or sinuses. Growths in the nose (nasal polyps). Chemicals or irritants in the air. Fungus (rare). What increases the risk? You are more likely to develop this condition if: You have a weak body defense system (immune system). You do a lot of swimming or diving. You use nasal sprays too much. You smoke. What are the signs or symptoms? The main symptoms of this condition are pain and a feeling of pressure around the sinuses. Other symptoms include: Stuffy nose (congestion). Runny nose (drainage). Swelling and warmth in the sinuses. Headache. Toothache. A cough that may get worse at night. Mucus that collects in the throat or the back of the nose (postnasal drip). Being unable to smell and taste. Being very tired (fatigue). A fever. Sore throat. Bad breath. How is this diagnosed? This condition is diagnosed based on: Your symptoms. Your medical history. A physical exam. Tests to find out if your condition is short-term (acute) or long-term (chronic). Your doctor may: ?Check your nose for growths (polyps). ?Check your sinuses using a tool that has a light (endoscope). ?Check for allergies or germs. ?Do imaging tests, such as an MRI or CT scan. How is this treated? Treatment for this condition depends on the cause and whether it is short-term or long-term. If caused by a virus, your symptoms should go away on their own within 10 days. You may be given medicines to relieve symptoms. They include: ?Medicines that shrink swollen tissue in the nose. ?Medicines that treat allergies (antihistamines). ?A spray that treats swelling of the nostrils. ?Rinses that help get rid of thick mucus in your nose (nasal saline washes). If caused by bacteria, your doctor may wait to see if you will get better without treatment. You may be given antibiotic medicine if you have: ?A very bad infection. ?A weak body defense system. If caused by growths in the nose, you may need to have surgery. Follow these instructions at home: Medicines Take, use, or apply qzmt-qyi-qknylca and prescription medicines only as told by your doctor. These may include nasal sprays. If you were prescribed an antibiotic medicine, take it as told by your doctor. Do not stop taking the antibiotic even if you start to feel better. Hydrate and humidify Drink enough water to keep your pee (urine) pale yellow. Use a cool mist humidifier to keep the humidity level in your home above 50%. Breathe in steam for 10 15 minutes, 3 4 times a day, or as told by your doctor. You can do this in the bathroom while a hot shower is running. Try not to spend time in cool or dry air. Rest Rest as much as you can. Sleep with your head raised (elevated). Make sure you get enough sleep each night. General instructions Put a warm, moist washcloth on your face 3 4 times a day, or as often as told by your doctor. This will help with discomfort. Wash your hands often with soap and water. If there is no soap and water, use hand benzene worker. Do not smoke. Avoid being around people who are smoking (secondhand smoke). Keep all follow-up visits as told by your doctor. This is important. Contact a doctor if: You have a fever. Your symptoms get worse. Your symptoms do not get better within 10 days. Get help right away if: You have a very bad headache. You cannot stop throwing up (vomiting). You have very bad pain or swelling around your face or eyes. You have trouble seeing. You feel confused. Your neck is stiff. You have trouble breathing. Summary Sinusitis is swelling of your sinuses. Sinuses are hollow spaces in the bones around your face. This condition is caused by tissues in your nose that become inflamed or swollen. This traps germs.These can lead to infection. If you were prescribed an antibiotic medicine, take it as told by your doctor. Do not stop taking it even if you start to feel better. Keep all follow-up visits as told by your doctor. This is important. This information is not intended to replace advice given to you by your health care provider. Make sure you discuss any questions you have with your health care provider. Document Released: 12/03/2008 Document Revised: 11/17/2018 Document Reviewed: 11/17/2018 [employer] Patient Education 2020 [employer]. 09/07/2022 02:01:10 Asthma, Adult, Ubjp-tc-Pmil Asthma, Adult Asthma is a long-term (chronic) condition in which the airways get tight and narrow. The airways are the breathing passages that lead from the nose and mouth down into the lungs. A person with asthmawill have times when symptoms get worse. These are called asthma attacks. They can cause coughing, whistling sounds when you breathe (wheezing), shortness of breath, and chest pain. They can make it hard to breathe. There is no cure for asthma, but medicines and lifestyle changes can help control it. There are many things that can bring on an asthma attack or make asthma symptoms worse (triggers). Common triggers include: Mold. Dust. Cigarette smoke. Cockroaches. Things that can cause allergy symptoms (allergens). These include animal skin flakes (dander) and pollen from trees or grass. Things that pollute the air. These may include household chin strap sewer, wood smoke, smog, or chemical odors. Cold air, weather changes, and wind. Crying or laughing hard. Stress. Certain medicines or drugs. Certain foods such as dried fruit, potato chips, and grape juice. Infections, such as a cold or the flu. Certain medical conditions or diseases. Exercise or tiring activities. Asthma may be treated with medicines and by staying away from the things that cause asthma attacks.Types of medicines may include: Controller medicines. These help prevent asthma symptoms. They are usually taken every day. Fast-acting reliever or rescue medicines. These quickly relieve asthma symptoms. They are used as needed and provide short-term relief. Allergy medicines if your attacks are brought on by allergens. Medicines to help control the body's defense (immune) system. Follow these instructions at home: Avoiding triggers in your home Change your heating and air conditioning filter often. Limit your use of fireplaces and wood stoves. Get rid of pests (such as roaches and mice) and their droppings. Throw away plants if you see mold on them. Clean your floors. Dust regularly. Use cleaning products that do not smell. Have someone vacuum when you are not home. Use a vacuum service cleaner with a HEPA filter if possible. Replace carpet with wood, tile, or vinyl wallace. Carpet can trap animal skin flakes and dust. Use allergy-proof pillows, mattress covers, and box spring covers. Wash bed sheets and blankets every week in hot water. Dry them in a dryer. Keep your bedroom free of any triggers. Avoid pets and keep windows closed when things that cause allergy symptoms are in the air. Use blankets that are made of polyester or cotton. Clean bathrooms and nicholas with bleach. If possible, have someone repaint the tamayo in these rooms with mold-resistant paint. Keep out of the rooms that are being cleaned and painted. Wash your hands often with soap and water. If soap and water are not available, use hand benzene worker. Do not allow anyone to smoke in your home. General instructions Take cvdv-smj-xmbmwts and prescription medicines only as told by your doctor. ?Talk with your doctor if you have questions about how or when to take your medicines. ?Make note if you need to use your medicines more often than usual. Do not use any products that contain nicotine or tobacco, such as cigarettes and e-cigarettes. If you need help quitting, ask your doctor. Stay away from secondhand smoke. Avoid doing things outdoors when allergen counts are high and when air quality is low. Wear a ski mask when doing outdoor activities in the winter. The mask should cover your nose and mouth. Exercise indoors on cold days if you can. Warm up before you exercise. Take time to cool down after exercise. Use a peak flow meter as told by your doctor. A peak flow meter is a tool that measures how well the lungs are working. Keep track of the peak flow meter's readings. Write them down. Follow your asthma action plan. This is a written plan for taking care of your asthma and treating your attacks. Make sure you get all the shots (vaccines) that your doctor recommends. Ask your doctor about a flushot and a pneumonia shot. Keep all follow-up visits as told by your doctor. This is important. Contact a doctor if: You have wheezing, shortness of breath, or a cough even while taking medicine to prevent attacks. The mucus you cough up (sputum) is thicker than usual. The mucus you cough up changes from clear or white to yellow, green, santiago, or bloody. You have problems from the medicine you are taking, such as: ?A rash. ?Itching. ?Swelling. ?Trouble breathing. You need reliever medicines more than 2 3 times a week. Your peak flow reading is still at 50 79% of your personal best after following the action plan for1 hour. You have a fever. Get help right away if: You seem to be worse and are not responding to medicine during an asthma attack. You are short of breath even at rest. You get short of breath when doing very little activity. You have trouble eating, drinking, or talking. You have chest pain or tightness. You have a fast heartbeat. Your lips or fingernails start to turn blue. You are light-headed or dizzy, or you faint. Your peak flow is less than 50% of your personal best. You feel too tired to breathe normally. Summary Asthma is a long-term (chronic) condition in which the airways get tight and narrow. An asthma attack can make it hard to breathe. Asthma cannot be cured, but medicines and lifestyle changes can help control it. Make sure you understand how to avoid triggers and how and when to use your medicines. This information is not intended to replace advice given to you by your health care provider. Make sure you discuss any questions you have with your health care provider. Document Released: 12/03/2008 Document Revised: 08/20/2019 Document Reviewed: 07/22/2017 [employer] Patient Education 2019 [employer]. Follow Up Care 09/06/2022 23:48:56 With:ALINE GUERRERO Address: [address] [place] [id number] Business (1) When:09/10/2022 Comments:Take the antibiotics as prescribed to completed the course you can use the Bromfed every 6 hours asneeded for cough. Take the steroids once daily in the morning. Use your albuterol inhaler 2 puffs every 3-4 hours while you are awake for the next 2 to 3 days and you can decrease to as needed. Please follow- up with your primary care doctor next 2 to 3 days. Please return to ED for any new or worsening symptoms. [facility]03-03-2023 Evaluation note* Encounter Date Diagnosis Assessment Notes Treatment Notes Treatment Clinical Notes Aug, Nasal congestion (ICD-10 - R09.81) Aug, Lower respiratory infection (ICD-10 - J22) Advised patient that COVID/Influenza A/B PCR test was negative today in office. Discussed diagnosis with patient in detail. Advised patient that cough may linger for 3 weeks. Will treat today with antibiotic. Reviewed allergies and recent antibiotic use. Advised to take medications as prescribed, reviewed side effects of steroid, take with food and plenty of water, finish entire course. Encouraged supportive care as directed, push fluids and rest, may use Tylenol as needed for fever/discomfort, cool mist humidifier. May use Boring as needed for cough, do not take any other OTCs while using Boring. Patient to follow up with PCP in 2-3 days. Immediate eval if SOB, difficulty breathing, chest pain, dizziness, or other concerning symptoms. Patient verbalizes understanding and is agreeable to treatment plan [employer] Other [id number] Miscellaneous Notes* Telephone Encounter - Saadia Hall MA - 07/20/2022 9:29 AM EST LM regarding med sent. * Telephone Encounter - Stevo Neff MD - 07/19/2022 4:55 PM EST Notify patient medication sent as requested Thank you. Patient's request for medication is as follows: Requested Prescriptions Signed Prescriptions Disp Refills upadacitinib (RINVOQ) Tb24 tablet 30 tablet 11 Sig: Take 1 tablet (15 mg) by mouth once daily. Swallow whole; DO NOT crush, chew, or open. Authorizing Provider: STEVO NEFF Prescription(s) as above. Please process accordingly. Stevo Neff MD * Telephone Encounter - Mary Layne LPN - 07/19/2022 2:50 PM EST Plan has quantity limit of 30 tabs/30 days. Most recent Rheumatology visit: 05/07/2022 (with Stevo Neff) Recent Office Visits - This Specialty 05/07/2022 Rheumatoid arthritis of multiple sites without rheumatoid factor (HCC) Rheumatology Stevo Neff MD 10/10/2005 IMMUNOLOGICAL FIND OTHR OR UNSPEC Rheumatology Laura Harper MD Upcoming Rheumatology Appointments - Next 365 Days Visit Type Date Time Department [facility] 12/03/2022 6:40 AM [facility] CBC: CBC Latest Ref Rng & Units 07/03/2007 05/07/2022 WBC 3.70 - 11.00 k/uL 7.11 14.66(H) HEMOGLOBIN 11.5 - 15.5 g/dL 13.7 12.6 HEMATOCRIT 36.0 - 46.0 % 40.2 41.1 PLATELETS 150 - 400 k/uL 287 352 ABS NEUT (ANC) 1.8 - 7.7 K/uL 4.77 - ABS LYMPH 1.0 - 4.0 k/uL 1.80 - Vitamin D: Vitamin D Latest Ref Rng & Units 04/18/2011 05/07/2022 VITAMIN D 25 HYDROXY 31.0 - 80.0 ng/mL 64.5 27.3(L) LFT: CMP Latest Ref Rng & Units 01/27/2014 05/07/2022 SODIUM 136 - 144 mmol/L 140 141 POTASSIUM 3.7 - 5.1 mmol/L 4.5 3.9 CHLORIDE 97 - 105 mmol/L 103 103 CO2 22 - 30 mmol/L 27 26 GLUCOSE 74 - 99 mg/dL 99 104(H) BUN 7 - 21 mg/dL 12 19 CREATININE 0.58 - 0.96 mg/dL 0.59(L) 0.56(L) CALCIUM, TOTAL 8.5 - 10.2 mg/dL 9.9 9.2 AST 13 - 35 U/L - 15 ALT 7 - 38 U/L - 15 ALKALINE PHOSPHATASE 34 - 123 U/L - 79 Creatinine: Creatinine Latest Ref Rng & Units 01/27/2014 05/07/2022 CREAT 0.58 - 0.96 mg/dL 0.59(L) 0.56(L) ESR/CRP: ESR, WSR Latest Ref Rng & Units 08/08/2005 05/07/2022 WSR 0 - 20 mm/hr 16 16 CRP Latest Ref Rng & Units 08/08/2005 05/07/2022 CRP <0.9 mg/dL 1.3 0.9(H) Uric Acid: Uric Acid Latest Ref Rng & Units 05/07/2022 URIC ACID 2.5 - 6.6 mg/dL 3.0 Open Standing (Multiple Instance) Lab Orders None Open Future (Single Instance) Lab Orders Expected Expires Ordered COMP METABOLIC PANEL [SQCMP] 08/09/22 05/09/23 05/09/22 Auth. provider: Stevo Neff MD Assoc. diagnoses: Elevated LFTs CBC [SQCBC] 08/09/22 05/09/23 05/09/22 Auth. provider: Stevo Neff MD Assoc. diagnoses: Anemia of chronic disease SED RATE WESTERGREN [SQWSR] 08/09/22 05/09/23 05/09/22 Auth. provider: Stevo Neff MD Assoc. diagnoses: Elevated sed rate, Elevated C-reactive protein (CRP) C-REACTIVE PROTEIN (CRP) [SQCRP] 08/09/22 05/09/23 05/09/22 Auth. provider: Stevo Neff MD Assoc. diagnoses: Elevated sed rate, Elevated C-reactive protein (CRP) VITAMIN D 25 HYDROXY [SQVITD] 08/09/22 05/09/23 05/09/22 Auth. provider: Stevo Neff MD Assoc. diagnoses: Vitamin D deficiency ' * Telephone Encounter - Stevo Neff MD - 07/18/2022 5:55 PM EST Please see below note for instructions Please precert rinvoq for rheumatoid arthritis send script to specialty pharmacy if needed. Please Enroll in patient assistance Notify patient when above completed. Thank you. * Telephone Encounter - Geneva Byrd - 07/18/2022 5:05 PM EST Patient called today. : 1960 Allergies: Keflex [Cephalexin], No Latex Allergy [Other], and Penicillins (home) [phone] (work) [phone] (cell) Reason for call: Patient calling, insurance has informed her they need a PA for Rinvoq. Please initiate and june urgent . Patient requests call to above verified cell phone when complete. Patient isalmost out of medication. Patient last appointment: 05/17/2022 The patients preferred pharmacy has been captured for this encounter? not asked MECCA Messer Patient Operations Support Team (POST) Please note: Please do not re-route phone encounters back to this agent, please send to appropriateoffice pool. Agent works in call center and cannot complete patient specific tasks. [facility] Hospital Discharge instructions Follow Up Care 07/16/2022 13:51:14 With:Maximino HDZ, [employer] Address: [address] [place] [id number] When: only if needed [facility]12-19-2022 Miscellaneous Notes* Telephone Encounter - Stevo Neff MD - 06/18/2022 12:02 PM EST Please call patient Please ask outside facility to remove prolia authorization to allow prior authorization approval for [facility] administration May ask patient for information about prior prolia clinic information to cancel their prior authorization. See note below and notify prior authorization/billing team Thank you. * Telephone Encounter - Teresa Metzger - 06/18/2022 8:45 AM EST Date of Service: 06/22/2022 Additional Information Needed: I see a voicemail has been left for the patient regarding Prolia authorization. Has there been any follow up? We cant submit our authorization for upcoming visit on 06/22/2022 for her Prolia treatment, until the authorization with another facility is resented. Will she [facility] or another [facility]? Please advise. * Telephone Encounter - Mary Layne LPN - 06/05/2022 9:55 AM EST Left VM requesting return call as to what facility has Prolia auth/request. * Telephone Encounter - Stevo Neff MD - 05/30/2022 1:46 PM EST Please ask outside facility to remove prolia authorization to allow prior authorization approval for [facility] administration May ask patient for information about prior prolia clinic information to cancel their prior authorization. See note below and notify prior authorization/billing team Thank you. * Telephone Encounter - Teresa Metzger - 05/30/2022 11:14 AM EST ADDITIONAL INFORMATION NEEDED/REQUESTED Case Submitted: No Request Type: Payor Date of Service: 06/27/2022 Additional Information Needed: Has patient contacted insurance company to resend current Prolia authorization on file? * Telephone Encounter - Mary Layne LPN - 05/18/2022 2:50 PM EST [facility] returned faxed appeal information. They require appeal be mailed [employer] and Appeals Dept. Office to be notified of decision 0 daysafter materials received. * Telephone Encounter - Mary Layne LPN - 05/17/2022 9:52 AM EST [facility] faxes denial of Rinvoq d/t quantitiy limitation of 30 tabs per 30 days. Appeal along with chart notes faxed with confirmation, showing documentation of 1 tablet per day. documented in [facility] History of Present illness Narrative* Tram Spear - 06/06/2022 4:10 PM EST Ortho Nurse - Established Patient Intake Room#: 3 Date: 06/06/2022 4:18 PM Patient: Carolina Gomez MR#: [id number] : 1960 Age: 61 y.o. 4m R TKA Pt stated she is doing good and denies any pain at this time.0/10 on the pain scale. Pt stated her only complaint is going up and down steps it is a little week. Referring Physician: Self, Self Insurance: Payor: [employer] / Plan: [employer] HMO PPO POS / Product Type: *No Product type* / Chief Complaint Patient presents with Right Knee - Follow-up Visit Vitals Temp 97.5 F (36.4 C) (Temporal) Ht 1.499 m (4' 11 ) Wt 78.5 kg (173 lb) BMI 34.94 kg/m Pain Recent Labs No results found for: CRP No results found for: SEDRATE Lab Results Component Value Date WBC 10.6 01/24/2022 HGB 9.4 (L) 01/24/2022 HCT 28.9 (L) 01/24/2022 PLATELET 262 01/24/2022 MCV 89.6 01/24/2022 History Past Medical History: Diagnosis Date Asthma Diabetes mellitus pre GERD (gastroesophageal reflux disease) Hypothyroidism PE (pulmonary thromboembolism) Past Surgical History: Procedure Laterality Date ARTHROPLASTY KNEE TOTAL Right 01/23/2022 Laterality: Right; Surgeon: Puja Deluca MD; Location: [facility] OR ARTHROPLASTY KNEE TOTAL Bilateral partial CHOLECYSTECTOMY FOOT SURGERY Bilateral corrective surgery HYSTERECTOMY REMOVAL CATARACT (PEM) Bilateral Family History: Her family history is not on file. Social History: Her reports that she has never smoked. She has never used smokeless tobacco. She reports current alcohol use. She reports that she does not use drugs. Outpatient Medications Prior to Visit Medication Sig Dispense Refill acetaminophen 325 MG tablet Take 2 tablets by mouth every 4 hours as needed for Mild Pain. 50 tablet 1 albuterol 108 (90 Base) MCG/ACT Aero Soln inhaler INHALE 2 PUFFS BY MOUTH EVERY 4 HOURS NEEDED Azelastine HCl 137 MCG/SPRAY Solution nasal spray USE 2 SPRAYS IN EACH NOSTRIL TWICE DAILY, NEED TOUSE REGULARLY FOR BENEFIT benzonatate 200 MG capsule TAKE 1 CAPSULE BY MOUTH EVERY 8 HOURS NEEDED FOR COUGH cetirizine 10 MG tablet 2 times daily. cholestyramine 4 g Pack Take 4 g by mouth daily every morning. clindamycin 150 MG capsule Take 4 capsules 1 hour before the procedure 8 capsule 1 Denosumab (PROLIA SC) every 6 months. DISABILITY PLACARD Disability placard end date 05/01/2022. Dx 719.7 1 Each 0 docusate 100 MG capsule Take 1 capsule by mouth 2 times daily. 60 capsule 0 doxycycline monohydrate 100 MG tablet Take 100 mg by mouth 2 times daily. fluticasone 50 MCG/ACT Suspension nasal spray 2 sprays by Nasal route daily. HERBAL PRODUCT daily. Nerve 911 levothyroxine 137 MCG tablet Take 137 mcg by mouth daily. Multiple Vitamin (Multi-Vitamin) tablet Take 1 tablet by mouth daily every morning. omeprazole [address] capsule TAKE 1 CAPSULE BY MOUTH EVERY MORNING *CALL OFFICE TO SCHEDULE FOLLOW UP* ondansetron 4 MG tablet TAKE 1 TABLET BY MOUTH EVERY 12 HOURS NEEDED FOR NAUSEA FOR 5 DAYS Ozempic, 1 MG/DOSE, 4 MG/3ML Solution Pen-injector INJECT 1MG SUBCUTANEOUSLY ONCE WEEKLY Probiotic Product (Align) capsule TAKE 1 CAPSULE DAILY AFTER COMPLETING ANTIBIOTICS COURSE triamcinolone 0.1 % Ointment ointment APPLY TO AFFECTED AREAS OF RASH TWICE DAILY NEEDED FOR 30 DAYS Upadacitinib (RINVOQ PO) Take 15 mg by mouth daily. Wixela Inhub 250-50 MCG/ACT Aerosol Powder, breath activated inhaler INHALE 1 PUFF INTO LUNGS TWICEDAILY. USE REGULARLY FOR BENEFIT. RINSE MOUTH AFTER USE zafirlukast 20 MG tablet Take 20 mg by mouth 2 times daily. celecoxib 200 MG capsule Take 1 capsule by mouth 2 times daily. 84 capsule 0 Enoxaparin Sodium 40 MG/0.4ML injection Inject 0.4 mL under the skin daily. 12 mL 0 oxyCODONE 5 MG tablet Take 1 tablet by mouth every 12 hours as needed for Severe Pain for up to 7 days. Wean as tolerated. 14 tablet 0 No facility-administered medications prior to visit. Current Outpatient Medications: acetaminophen 325 MG tablet, Take 2 tablets by mouth every 4 hours as needed for Mild Pain., Disp: 50 tablet, Rfl: 1 albuterol 108 (90 Base) MCG/ACT Aero Soln inhaler, INHALE 2 PUFFS BY MOUTH EVERY 4 HOURS NEEDED,Disp: , Rfl: Azelastine HCl 137 MCG/SPRAY Solution nasal spray, USE 2 SPRAYS IN EACH NOSTRIL TWICE DAILY, NEED TO USE REGULARLY FOR BENEFIT, Disp: , Rfl: benzonatate 200 MG capsule, TAKE 1 CAPSULE BY MOUTH EVERY 8 HOURS NEEDED FOR COUGH, Disp: , Rfl: cetirizine 10 MG tablet, 2 times daily., Disp: , Rfl: cholestyramine 4 g Pack, Take 4 g by mouth daily every morning., Disp: , Rfl: clindamycin 150 MG capsule, Take 4 capsules 1 hour before the procedure, Disp: 8 capsule, Rfl: 1 Denosumab (PROLIA SC), every 6 months., Disp: , Rfl: DISABILITY PLACARD, Disability placard end date 05/01/2022. Dx 719.7, Disp: 1 Each, Rfl: 0 docusate 100 MG capsule, Take 1 capsule by mouth 2 times daily., Disp: 60 capsule, Rfl: 0 doxycycline monohydrate 100 MG tablet, Take 100 mg by mouth 2 times daily., Disp: , Rfl: fluticasone 50 MCG/ACT Suspension nasal spray, 2 sprays by Nasal route daily., Disp: , Rfl: HERBAL PRODUCT, daily. Nerve 911, Disp: , Rfl: levothyroxine 137 MCG tablet, Take 137 mcg by mouth daily., Disp: , Rfl: Multiple Vitamin (Multi-Vitamin) tablet, Take 1 tablet by mouth daily every morning., Disp: , Rfl: omeprazole [address] capsule, TAKE 1 CAPSULE BY MOUTH EVERY MORNING *CALL OFFICE TO SCHEDULE FOLLOW UP*, Disp: , Rfl: ondansetron 4 MG tablet, TAKE 1 TABLET BY MOUTH EVERY 12 HOURS NEEDED FOR NAUSEA FOR 5 DAYS, Disp: , Rfl: Ozempic, 1 MG/DOSE, 4 MG/3ML Solution Pen-injector, INJECT 1MG SUBCUTANEOUSLY ONCE WEEKLY, Disp: , Rfl: Probiotic Product (Align) capsule, TAKE 1 CAPSULE DAILY AFTER COMPLETING ANTIBIOTICS COURSE, Disp: , Rfl: triamcinolone 0.1 % Ointment ointment, APPLY TO AFFECTED AREAS OF RASH TWICE DAILY NEEDED FOR 30DAYS, Disp: , Rfl: Upadacitinib (RINVOQ PO), Take 15 mg by mouth daily., Disp: , Rfl: Wixela Inhub 250-50 MCG/ACT Aerosol Powder, breath activated inhaler, INHALE 1 PUFF INTO LUNGS TWICE DAILY. USE REGULARLY FOR BENEFIT. RINSE MOUTH AFTER USE, Disp: , Rfl: zafirlukast 20 MG tablet, Take 20 mg by mouth 2 times daily., Disp: , Rfl: celecoxib 200 MG capsule, Take 1 capsule by mouth 2 times daily., Disp: 84 capsule, Rfl: 0 Enoxaparin Sodium 40 MG/0.4ML injection, Inject 0.4 mL under the skin daily., Disp: 12 mL, Rfl: 0 oxyCODONE 5 MG tablet, Take 1 tablet by mouth every 12 hours as needed for Severe Pain for up to 7 days. Wean as tolerated., Disp: 14 tablet, Rfl: 0 Allergies: She is allergic to eliquis [apixaban], keflex [cephalexin], and penicillins. * Puja Deluca MD - 06/06/2022 4:10 PM EST HPI: Carolina is here today for evaluation of her operative knee. She is status post right total kneerevision arthroplasty, conversion from medial partial to total. She is about 4 months out from surgery and reports that she is doing well and is pleased with the outcome of the intervention. She denies pain and has no additional questions or concerns at this time. PHYSICAL EXAM: The bilateral lower extremities were evaluated. The operative lower extremity is soft, nontender, full and supple motion. No pain, no impingement. No instability. Incision is well healed. She has full return of motion, 0-120 degrees and a stable examination to varus and valgus stresswith normal balance throughout the arc of motion. The contralateral extremity has full motion, normal stability, no tenderness. Both extremities have normal neurovascular status. DIAGNOSTIC STUDIES/INTERPRETATION: Plain film radiographs reviewed. Three views of the operative knee show a right total knee arthroplasty in good position and alignment. No evidence of prosthetic implant loosening or migration. Long standing films demonstrate neutral recreation of the mechanical axis through the operative leg. IMPRESSION: 1.) Stable status post right total knee revision arthroplasty, conversion from medial partial to total, doing well. 2.) History of failed partial, dislocation, right knee. PLAN: I reviewed my findings with patient. Overall, I am pleased with the outcome of intervention. She has made an excellent recovery thus far. We discussed the stages of healing along with what symptoms that can be expected at current stage. We discussed the diagnosis and treatment options. We also discussed the benefits of performing a variety of exercises at home, with a physical therapist or local gym. She understands and will continue this in a slow, steady manner. I expect continued improvement in strength and mobility moving forward. I recommend followup at one year for repeat clinicaland radiographic examination or sooner if any new symptoms develop. She will call with any questions or concerns in the meantime. I have reviewed the findings of the clinical mining support worker and agree with their assessment. Ortho Nurse - Established Patient Intake Room#: 3 Date: 06/06/2022 4:18 PM Patient: Carolina Gomez MR#: [id number] : 1960 Age: 61 y.o. 4m R TKA Pt stated she is doing good and denies any pain at this time.0/10 on the pain scale. Pt stated her only complaint is going up and down steps it is a little week. Referring Physician: Self, Self Insurance: Payor: [employer] / Plan: [employer] H[employer] PPO POS / Product Type: *No Product type* / Chief Complaint Patient presents with Right Knee - Follow-up Visit Vitals Temp 97.5 F (36.4 C) (Temporal) Ht 1.499 m (4' 11 ) Wt 78.5 kg (173 lb) BMI 34.94 kg/m Pain Recent Labs No results found for: CRP No results found for: SEDRATE Lab Results Component Value Date WBC 10.6 01/24/2022 HGB 9.4 (L) 01/24/2022 HCT 28.9 (L) 01/24/2022 PLATELET 262 01/24/2022 MCV 89.6 01/24/2022 History Past Medical History: Diagnosis Date Asthma Diabetes mellitus pre GERD (gastroesophageal reflux disease) Hypothyroidism PE (pulmonary thromboembolism) Past Surgical History: Procedure Laterality Date ARTHROPLASTY KNEE TOTAL Right 01/23/2022 Laterality: Right; Surgeon: Puja Deluca MD; Location: [facility] OR ARTHROPLASTY KNEE TOTAL Bilateral partial CHOLECYSTECTOMY FOOT SURGERY Bilateral corrective surgery HYSTERECTOMY REMOVAL CATARACT (PEM) Bilateral Family History: Her family history is not on file. Social History: Her reports that she has never smoked. She has never used smokeless tobacco. She reports current alcohol use. She reports that she does not use drugs. Outpatient Medications Prior to Visit Medication Sig Dispense Refill acetaminophen 325 MG tablet Take 2 tablets by mouth every 4 hours as needed for Mild Pain. 50 tablet 1 albuterol 108 (90 Base) MCG/ACT Aero Soln inhaler INHALE 2 PUFFS BY MOUTH EVERY 4 HOURS NEEDED Azelastine HCl 137 MCG/SPRAY Solution nasal spray USE 2 SPRAYS IN EACH NOSTRIL TWICE DAILY, NEED TOUSE REGULARLY FOR BENEFIT benzonatate 200 MG capsule TAKE 1 CAPSULE BY MOUTH EVERY 8 HOURS NEEDED FOR COUGH cetirizine 10 MG tablet 2 times daily. cholestyramine 4 g Pack Take 4 g by mouth daily every morning. clindamycin 150 MG capsule Take 4 capsules 1 hour before the procedure 8 capsule 1 Denosumab (PROLIA SC) every 6 months. DISABILITY PLACARD Disability placard end date 05/01/2022. Dx 719.7 1 Each 0 docusate 100 MG capsule Take 1 capsule by mouth 2 times daily. 60 capsule 0 doxycycline monohydrate 100 MG tablet Take 100 mg by mouth 2 times daily. fluticasone 50 MCG/ACT Suspension nasal spray 2 sprays by Nasal route daily. HERBAL PRODUCT daily. Nerve 911 levothyroxine 137 MCG tablet Take 137 mcg by mouth daily. Multiple Vitamin (Multi-Vitamin) tablet Take 1 tablet by mouth daily every morning. omeprazole [address] capsule TAKE 1 CAPSULE BY MOUTH EVERY MORNING *CALL OFFICE TO SCHEDULE FOLLOW UP* ondansetron 4 MG tablet TAKE 1 TABLET BY MOUTH EVERY 12 HOURS NEEDED FOR NAUSEA FOR 5 DAYS Ozempic, 1 MG/DOSE, 4 MG/3ML Solution Pen-injector INJECT 1MG SUBCUTANEOUSLY ONCE WEEKLY Probiotic Product (Align) capsule TAKE 1 CAPSULE DAILY AFTER COMPLETING ANTIBIOTICS COURSE triamcinolone 0.1 % Ointment ointment APPLY TO AFFECTED AREAS OF RASH TWICE DAILY NEEDED FOR 30 DAYS Upadacitinib (RINVOQ PO) Take 15 mg by mouth daily. Wixela Inhub 250-50 MCG/ACT Aerosol Powder, breath activated inhaler INHALE 1 PUFF INTO LUNGS TWICEDAILY. USE REGULARLY FOR BENEFIT. RINSE MOUTH AFTER USE zafirlukast 20 MG tablet Take 20 mg by mouth 2 times daily. celecoxib 200 MG capsule Take 1 capsule by mouth 2 times daily. 84 capsule 0 Enoxaparin Sodium 40 MG/0.4ML injection Inject 0.4 mL under the skin daily. 12 mL 0 oxyCODONE 5 MG tablet Take 1 tablet by mouth every 12 hours as needed for Severe Pain for up to 7 days. Wean as tolerated. 14 tablet 0 No facility-administered medications prior to visit. Current Outpatient Medications: acetaminophen 325 MG tablet, Take 2 tablets by mouth every 4 hours as needed for Mild Pain., Disp: 50 tablet, Rfl: 1 albuterol 108 (90 Base) MCG/ACT Aero Soln inhaler, INHALE 2 PUFFS BY MOUTH EVERY 4 HOURS NEEDED,Disp: , Rfl: Azelastine HCl 137 MCG/SPRAY Solution nasal spray, USE 2 SPRAYS IN EACH NOSTRIL TWICE DAILY, NEED TO USE REGULARLY FOR BENEFIT, Disp: , Rfl: benzonatate 200 MG capsule, TAKE 1 CAPSULE BY MOUTH EVERY 8 HOURS NEEDED FOR COUGH, Disp: , Rfl: cetirizine 10 MG tablet, 2 times daily., Disp: , Rfl: cholestyramine 4 g Pack, Take 4 g by mouth daily every morning., Disp: , Rfl: clindamycin 150 MG capsule, Take 4 capsules 1 hour before the procedure, Disp: 8 capsule, Rfl: 1 Denosumab (PROLIA SC), every 6 months., Disp: , Rfl: DISABILITY PLACARD, Disability placard end date 05/01/2022. Dx 719.7, Disp: 1 Each, Rfl: 0 docusate 100 MG capsule, Take 1 capsule by mouth 2 times daily., Disp: 60 capsule, Rfl: 0 doxycycline monohydrate 100 MG tablet, Take 100 mg by mouth 2 times daily., Disp: , Rfl: fluticasone 50 MCG/ACT Suspension nasal spray, 2 sprays by Nasal route daily., Disp: , Rfl: HERBAL PRODUCT, daily. Nerve 911, Disp: , Rfl: levothyroxine 137 MCG tablet, Take 137 mcg by mouth daily., Disp: , Rfl: Multiple Vitamin (Multi-Vitamin) tablet, Take 1 tablet by mouth daily every morning., Disp: , Rfl: omeprazole [address] capsule, TAKE 1 CAPSULE BY MOUTH EVERY MORNING *CALL OFFICE TO SCHEDULE FOLLOW UP*, Disp: , Rfl: ondansetron 4 MG tablet, TAKE 1 TABLET BY MOUTH EVERY 12 HOURS NEEDED FOR NAUSEA FOR 5 DAYS, Disp: , Rfl: Ozempic, 1 MG/DOSE, 4 MG/3ML Solution Pen-injector, INJECT 1MG SUBCUTANEOUSLY ONCE WEEKLY, Disp: , Rfl: Probiotic Product (Align) capsule, TAKE 1 CAPSULE DAILY AFTER COMPLETING ANTIBIOTICS COURSE, Disp: , Rfl: triamcinolone 0.1 % Ointment ointment, APPLY TO AFFECTED AREAS OF RASH TWICE DAILY NEEDED FOR 30DAYS, Disp: , Rfl: Upadacitinib (RINVOQ PO), Take 15 mg by mouth daily., Disp: , Rfl: Wixela Inhub 250-50 MCG/ACT Aerosol Powder, breath activated inhaler, INHALE 1 PUFF INTO LUNGS TWICE DAILY. USE REGULARLY FOR BENEFIT. RINSE MOUTH AFTER USE, Disp: , Rfl: zafirlukast 20 MG tablet, Take 20 mg by mouth 2 times daily., Disp: , Rfl: celecoxib 200 MG capsule, Take 1 capsule by mouth 2 times daily., Disp: 84 capsule, Rfl: 0 Enoxaparin Sodium 40 MG/0.4ML injection, Inject 0.4 mL under the skin daily., Disp: 12 mL, Rfl: 0 oxyCODONE 5 MG tablet, Take 1 tablet by mouth every 12 hours as needed for Severe Pain for up to 7 days. Wean as tolerated., Disp: 14 tablet, Rfl: 0 Allergies: She is allergic to eliquis [apixaban], keflex [cephalexin], and penicillins. [facility]* Encounter Date Diagnosis Assessment Notes Treatment Notes Treatment Clinical Notes May, Viral upper respiratory infection (ICD-10 - J06.9) Viral upper respiratory infection: adult home care material was printed Drink plenty fluids, get plenty of rest. Continue home medications as prescribed. Take Sudafed for congestion. Follow-up with your family physician if no improvement in 2 to 3 days. [employer] Other 11-22-2022 Evaluation + Plan noteExtracted from: Title:Discharge Note Author:Nagi CONWAY MD te:05/22/22 Discharge To, Anticipated II - Home with responsible caregiver Discharge Status: Improved Discharge Instructions Given: To patient Discharge disposition: Home Prescriptions reviewed with Patient 25 Minute in discharge time Discharge Diet(s): Regular (05/22/22 09:22:00) Prescriptions Pepcid 20 mg Tab, 20 mg= 1 tab(s), Oral, Once a day (at bedtime) Home Advair Discus 250 mcg-50 mcg Powder, 1 puff(s), Inhalation, BID celecoxib 200 mg Cap, 200 mg= 1 cap(s), Oral, BID Flonase 0.05 mg/inh nasal spray, 2 spray(s), Nasal, Daily levothyroxine 137 mcg (0.137 mg) Tab, 137 mcg= 1 tab(s), Oral, Daily omeprazole 40 mg Cap-DR, 40 mg= 1 cap(s), Oral, Daily Ozempic (1 mg dose), 1 mg, SubCutaneous, qWeek Prolia, 60 mg, SubCutaneous, q6mo Rinvoq, 15 mg, Oral, Daily zafirlukast 20 mg Tab, 20 mg= 1 tab(s), Oral, BID With When Contact Information ALINE GUERRERO 05/30/2022 09:00 AM EST [address] [place] [id number] Business (1) Additional Instructions: If patient prefers different time she can calll to get a later time Call physician if symptoms worsen Vasovagal Syncope, Pediatric Syncope Extracted from: Title:Admission H & P Author:Andrea DAMON DO Date:05/22/22 1. Syncope (R55: Syncope and collapse) Circumstances and history is suggestive of a vasovagal event. Occurred while nauseated and having an isolated episode of profound diarrhea. However note below. We will complete cardiac enzyme panel, observe on telemetry, repeat electrolytes with particular focus on potassium which was borderline last evening. In light of below we will consult with cardiology. Ordered: Consult to Cardiology Echo Transthoracic Complete 2. Abnormal EKG (R94.31: Abnormal electrocardiogram [ECG] [EKG]) We have no prior EKG tracings for comparison. Patient denies being told she has had an abnormal EKG in the past but did with further discussion admit to being told my heart was enlarged when she was diagnosed with COVID-19 in July 2020. We will check an echocardiogram looking for regional wall motion abnormalities in light of above. ? Role of prior COVID, question role of recent i.e. early April 01 diagnosis of COVID and ?myocarditis patient denies any chest pain. Consult with cardiology Ordered: Consult to Cardiology Lipid Panel 3. N&V (nausea and vomiting) (R11.2: Nausea with vomiting, unspecified) Patient is no longer nauseated. Symptoms began upon return from below. She had also had a cough but note history of below but has not been febrile has no leukocytosis. She did not have a cough was in the room. She did have diarrhea see below but was only 1 episode and denies any myalgias. Note patient has struggled with nausea before there was consideration of benefit from probiotics, she has benefited in the past from Carafate. To rule out atypical manifestations of acute coronary syndrome see above. Question also a predisposition with the use of Ozempic at home. We will repeat CBC and electrolytes, make as needed Zofran available, check a UA Ordered: Add on Test UA With Cult Reflex 4. 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 At that time she had moderate chronic gastritis with Helicobacter negative. Was treated with Carafate which incidentally improved her nausea. Patient has had problems with heartburn especially at night prior to above continue Pepcid in the evening PPI during the day 5. Asthma (J45.909: Unspecified asthma, uncomplicated) Question if the cough which was not present prior to dilation was not a result of transient aspiration following upper GI procedure. She did not have any wheezing, she did not have a cough during the entirety of my evaluation of her at bedside. Continue Advair and Singulair 6. History of pulmonary embolism (Z86.711: Personal history of pulmonary embolism) This was diagnosed when first diagnosed with COVID-19 in July 2020. She was treated with Xarelto for 1 year. She denies any calf tenderness or swelling as she had during that hospitalization, denies any chest pain denies any profound shortness of breath on this presentation though she was in July 2020 7. History of COVID-19 (Z86.16: Personal history of COVID-19) Patient states she was initially diagnosed in July 2020 where she was also treated for DVT/PE. Patient states she had recurrence of COVID-19 diagnosed in March. She was seen in follow-up by her primary care physician at the beginning of the month and with her risk factors was placed on Paxlovid She finished this nearly a month prior. Though it is known that some individuals will have rebound symptomatology would not anticipate patient having rebound symptoms 1 month later. We will monitor 8. Rheumatoid arthritis (M06.9: Rheumatoid arthritis, unspecified) Patient is on rinvoq which can predispose her towards upper respiratory tract and other infectious illnesses. We will check sedimentation rate as she was not complaining of any acute articular symptoms for if elevated ?cardiac as inflammatory respiratory illness. Note we do not have the written Dawn on formulary therefore can observe for any evolving infectious process not immediately evident pending readministration upon discharge 9. Diabetes (E11.9: Type 2 diabetes mellitus without complications) We will check hemoglobin A1c. We do not have Ozempic on formulary. Use Humalog sliding scale Ordered: HgbA1c 10. Hypothyroidism (E03.9: Hypothyroidism, unspecified) On thyroid supplementation 11. Obesity (E66.9: Obesity, unspecified) With multiple comorbidities would recommend weight loss 12. DVT prophylaxis (Z29.9: Encounter for prophylactic measures, unspecified) Anticipate patient being admitted for less than 1 midnight if her hospitalization is prolonged and does not ambulate in light of above would have low threshold for use of subcutaneous heparin versus Lovenox Orders: acetaminophen, 650 mg = 2 tab(s), Tab, Oral, q6hr PRN Pain, Routine, Start date 05/22/22 6:46:00 EST, 05/22/22 6:46:00 EST fluticasone nasal, 0.1 mg, 2 spray(s), [place], Nasal, Daily, Routine, Start date 05/22/22 9:00:00 EST fluticasone-salmeterol, 1 puff(s), Powder, Inhalation, BID, Routine, Start date 05/22/22 9:00:00 EST glucose, 50 mL, Soln-IV, IV Push, Once PRN Blood glucose, Routine, Start date 05/22/22 6:59:00 EST hydrALAZINE, 10 mg = 0.5 mL, Injection, IV Push, q6hr PRN Other (see comment), Routine, Start date 05/22/22 6:46:00 EST, 05/22/22 6:46:00 EST insulin lispro, 0-10 Units, Injection-Insulin, SubCutaneous, QIDACHS, Routine, Start date 05/22/22 7:30:00 EST levothyroxine, 75 mcg = 1 tab(s), Tab, Oral, As Directed, Routine, Start date 05/22/22 7:01:00 EST, 05/22/22 7:01:00 EST montelukast, 10 mg = 1 tab(s), Tab, Oral, Bedtime, Routine, Start date 05/22/22 21:00:00 EST, 05/22/22 7:01:00 EST ondansetron, 4 mg = 2 mL, Injection, IV Push, q6hr PRN Nausea, Routine, Start date 05/22/22 6:46:00 EST, 05/22/22 6:46:00 EST pantoprazole, 40 mg = 1 tab(s), Tab-DR, Oral, Daily, Routine, Start date 05/22/22 9:00:00 EST, 05/22/22 7:01:00 EST Sodium Chloride 0.9% intravenous solution 1,000 mL, 1,000 mL, IV, 50 mL/hr, Routine, Start date 05/22/22 6:46:00 EST, 20 hour(s), Total volume (mL): 1,000, 84 kg, 1.87, m2 Ambulate with Assistance Basic Metabolic Panel Cardiac Monitoring CBC w/ Auto Diff Diabetic/Calorie Control Diet Education Fall Risk eGFR Hypoglycemia Protocol Responsive Patient Hypoglycemia Protocol Unresponsive Patient Notify Provider Vital Signs Notify Provider Vital Signs Oxygen Protocol Place in Status Precautions Resuscitation Status - Full Routine Capillary Glucose POC Vital Signs Weight Patient is admitted as an observation with the anticipation she would not require 2 midnight stay Extracted from: Title:ED Note Author:Shalom Toledo DO Date :05/22/22 N&V (nausea and vomiting) (R 11.2: Nausea with vomiting, unspecified) ST segment depression (R94.31: Abnormal electrocardiogram [ECG] [EKG]) Syncope (R55: Syncope and collapse) Orders: Al hydroxide/Mg hydroxide/simethicone, 30 mL, Susp-Oral, Oral, Once, Stop date 05/22/22 0:24:00 EST, STAT, Start date 05/22/22 0:24:00 EST atropine/hyoscyamine/PB/scopolamine, 10 mL, Elixir, Oral, Once, Stop date 05/22/22 0:24:00 EST, STAT, Start date 05/22/22 0:24:00 EST ketorolac, 30 mg = 1 mL, Injection, IV Push, Once, Stop date 05/22/22 0:43:00 EST, STAT, Start date 05/22/22 0:43:00 EST, 05/22/22 0:43:00 EST lidocaine topical, 200 mg, 10 mL, Soln-Oral, Oral, Once, Stop date 05/22/22 0:24:00 EST, STAT, Start date 05/22/22 0:24:00 EST metoclopramide, 10 mg = 2 mL, Injection, IV Push, Once, Stop date 05/22/22 0:42:00 EST, STAT, Start date 05/22/22 0:42:00 EST, 05/22/22 0:42:00 EST ondansetron, 4 mg = 2 mL, Injection, IV Push, Once, Stop date 05/22/22 0:24:00 EST, STAT, Start date 05/22/22 0:24:00 EST, 05/22/22 0:24:00 EST Sodium Chloride 0.9% intravenous solution, Soln-IV, Misc, Once, Stop date 05/22/22 0:27:58 EST, Physician Stop, 05/22/22 0:27:58 EST Sodium Chloride 0.9% intravenous solution, 1,000 mL, Soln-IV, IV, Once, Stop date 05/22/22 0:24:00 EST, STAT, Start date 05/22/22 0:24:00 EST, Infuse over 61, minute(s) Automated Diff Basic Metabolic Panel Capillary Glucose POC CBC w/ Auto Diff ED Cardiac Monitoring ED Physician consult Hospitalist for continued care eGFR Hepatic Function Panel Lipase Level Oxygen Saturation PT & PTT Saline Lock Insert Troponin 0 Hr. Troponin 3 Hr. Troponin 6 Hr. Troponin 9 Hr. XR Chest Single View Future Appointments Appointment Date:11/21/2022 03:00:00 PM Scheduled Provider:Haim Do DO Location:.ONCOLOGY Appointment Type:ONC Office Visit 15 (FT) Diagnostic Tests Pending * UA With Cult Reflex 05/22/22 Future Scheduled Tests Laboratory* CBC w/ Auto Diff 04/05/22 * CBC w/ Auto Diff 11/21/22 * Comprehensive Metabolic Panel 11/21/22 * Ferritin 11/21/22 * Iron Level 11/21/22 * Iron Percent Saturation 11/21/22 Radiology* NM Myocardial Spect Rest/Stress 1 Day 05/29/22 * NM Gastric Emptying Study 10/13/21 [facility]11-22-2022 Hospital Discharge instructions Patient Education 05/22/2022 09:23:13 Vasovagal Syncope, Pediatric Vasovagal Syncope Syncope, also called fainting or passing out, is a temporary loss of consciousness. It occurs when the blood flow to the brain is reduced. Vasovagal syncope, which is also called neurocardiogenic syncope, is a fainting spell in which the blood flow to the brain is reduced because of a sudden drop in heart rate and blood pressure. Vasovagal syncope often occurs in response to fear or some other type of emotional or physical stress.. This type of fainting spell is generally considered harmless. However, injuries can occur if a child falls during a fainting spell. What are the causes? This condition is caused by a sudden decrease in blood pressure and heart rate, usually in responseto a trigger. Many factors and situations can trigger an episode. Some common triggers include: Pain. Fear. Seeing blood. This may occur during medical procedures, such as when blood is being drawn from a vein. Common activities, such as coughing, swallowing, stretching, or going to the bathroom. Emotional stress. Being in a confined space. Standing for a long time, especially in a warm environment. Lack of sleep or rest. Not eating for a long time. Not drinking enough liquids. Recent illness. Using drugs that affect blood pressure, such as alcohol, marijuana, cocaine, opiates, or inhalants. What are the signs or symptoms? Before the fainting episode, your child may: Feel dizzy or light-headed. Become pale. Sense that he or she is going to faint. Feel like the room is spinning. Only see directly ahead (tunnel vision). Feel nauseous. See spots or slowly lose vision. Hear ringing in the ears. Have a headache. Feel warm and sweaty. Feel a sensation of pins and needles. During the fainting spell, your child will generally be unconscious for no longer than a couple minutes before waking up and returning to normal. Getting up too quickly before his or her body can recover can cause your child to faint again. Some twitching or jerky movements may occur during the fainting spell. How is this diagnosed? Your child's health care provider will ask about your child's symptoms, take a medical history, andperform a physical exam. Most times, your child's health care provider will make a diagnosis based on your explanation of the event plus an electrocardiogram (ECG). Other tests may be done to rule out other causes. These may include: Blood tests. Other tests to check the heart, such as: ?Echocardiogram. ?Holter monitor. This is a wearable device that performs a prolonged ECG that monitors your child'sheart over days to weeks. ?Electrophysiology study. This tests the electrical activity of the heart to find the cause of an abnormal heart rhythm (arrhythmia) A test to check the response of your child's body to changes in position (tilt table test). This may be done when other causes have been ruled out. How is this treated? Most cases of this condition do not require treatment. Your child's health care provider may recommend ways to help your child to avoid fainting triggers and may provide home strategies to prevent fainting. These may include having your child: Drink additional fluids if he or she is exposed to a possible trigger. Add more salt to his or her diet. Sit or lie down if he or she has warning signs of an oncoming episode. Perform certain exercises. Wear compression stockings. If your child's fainting spells continue, he or she may be given medicines to help reduce further episodes of fainting. In some cases, surgery to place a pacemaker is done, but this is rare. Follow these instructions at home: Eating and drinking Have your child eat regular meals and avoid skipping meals. Have your child drink enough fluid to keep his or her urine clear or pale yellow. Have your child avoid caffeine. Increase salt in your child's diet as told by your child's health care provider. Lifestyle Have your child avoid hot tubs and saunas. Try to make sure that your child gets enough sleep at night. General instructions Teach your child to identify the warning signs of vasovagal syncope. Have your child sit or lie down at the first warning sign of a fainting spell. If sitting, your child should put his or her head down between his or her legs. If lying down, your child should swing his or her legs up in the air to increase blood flow to the brain. Tell your child to avoid prolonged standing. If your child has to stand for a long time, he or she should do movements such as: ?Crossing his or her legs. ?Flexing and stretching his or her leg muscles. ?Squatting. ?Moving his or her legs. Give rtcf-yms-ffjwxrz and prescription medicines only as told by your child's health care provider. Keep all follow-up visits as told by your child's health care provider. This is important. Get help right away if: Your child faints. Your child hits his or her head or is injured after fainting. Your child has chest pain or shortness of breath. Your child has a racing or irregular heartbeat (palpitations). Summary Syncope, also called fainting or passing out, is a temporary loss of consciousness. This condition is caused by a sudden decrease in blood pressure and heart rate, usually in responseto a trigger, such as pain, fear, or illness. Most cases of this condition do not require treatment. This information is not intended to replace advice given to you by your health care provider. Make sure you discuss any questions you have with your health care provider. Document Released: 03/26/2009 Document Revised: 05/30/2018 Document Reviewed: 07/23/2017 [employer] Patient Education 2020 [employer] 05/22/2022 09:23:13 Syncope Syncope Syncope refers to a condition in which a person temporarily loses consciousness. Syncope may also be called fainting or passing out. It is caused by a sudden decrease in blood flow to the brain. Eventhough most causes of syncope are not dangerous, syncope can be a sign of a serious medical problem. Your health care provider may do tests to find the reason why you are having syncope. Signs that you may be about to faint include: Feeling dizzy or light-headed. Feeling nauseous. Seeing all white or all black in your field of vision. Having cold, clammy skin. If you faint, get medical help right away. Call your local emergency services (391 in the [place] Donot drive yourself to the hospital. Follow these instructions at home: Pay attention to any changes in your symptoms. Take these actions to stay safe and to help relieve your symptoms: Lifestyle Do not drive, use machinery, or play sports until your health care provider says it is okay. Do not drink alcohol. Do not use any products that contain nicotine or tobacco, such as cigarettes and e-cigarettes. If you need help quitting, ask your health care provider. Drink enough fluid to keep your urine pale yellow. General instructions Take scaa-hes-smfrdby and prescription medicines only as told by your health care provider. If you are taking blood pressure or heart medicine, get up slowly and take several minutes to sit and then stand. This can reduce dizziness or light-headedness. Have someone stay with you until you feel stable. If you start to feel like you might faint, lie down right away and raise (elevate) your feet above the level of your heart. Breathe deeply and steadily. Wait until all the symptoms have passed. Keep all follow-up visits as told by your health care provider. This is important. Get help right away if you: Have a severe headache. Faint once or repeatedly. Have pain in your chest, abdomen, or back. Have a very fast or irregular heartbeat (palpitations). Have pain when you breathe. Are bleeding from your mouth or rectum, or you have black or tarry stool. Have a seizure. Are confused. Have trouble walking. Have severe weakness. Have vision problems. These symptoms may represent a serious problem that is an emergency. Do not wait to see if your symptoms will go away. Get medical help right away. Call your local emergency services (801 in the [place] Do not drive yourself to the hospital. Summary Syncope refers to a condition in which a person temporarily loses consciousness. It is caused by a sudden decrease in blood flow to the brain. Signs that you may be about to faint include dizziness, feeling light-headed, feeling nauseous, sudden vision changes, or cold, clammy skin. Although most causes of syncope are not dangerous, syncope can be a sign of a serious medical problem. If you faint, get medical help right away. This information is not intended to replace advice given to you by your health care provider. Make sure you discuss any questions you have with your health care provider. Document Released: 06/17/2006 Document Revised: 05/30/2018 Document Reviewed: 05/26/2018 [employer] Patient Education 2020 [employer] Follow Up Care 05/22/2022 00:05:48 With:ALINE GUERRERO Address: [facility] [place] [address] Business (1) When:05/30/2022 09:00:00 Comments:If patient prefers different time she can calll to get a later time Call physician if symptoms worsen [facility]11-21-2022 Hospital Discharge instructions Patient Education 05/21/2022 08:28:38 Upper Endoscopy, Adult, Care After Upper Endoscopy, Adult, Care After This sheet gives you information about how to care for yourself after your procedure. Your health care provider may also give you more specific instructions. If you have problems or questions, contact your health care provider. What can I expect after the procedure? After the procedure, it is common to have: A sore throat. Mild stomach pain or discomfort. Bloating. Nausea. Follow these instructions at home: Follow instructions from your health care provider about what to eat or drink after your procedure. Return to your normal activities as told by your health care provider. Ask your health care provider what activities are safe for you. Take jpuv-tnk-umxmrqb and prescription medicines only as told by your health care provider. Do not drive for 24 hours if you were given a sedative during your procedure. Keep all follow-up visits as told by your health care provider. This is important. Contact a health care provider if you have: A sore throat that lasts longer than one day. Trouble swallowing. Get help right away if: You vomit blood or your vomit looks like coffee grounds. You have: ?A fever. ?Bloody, black, or tarry stools. ?A severe sore throat or you cannot swallow. ?Difficulty breathing. ?Severe pain in your chest or abdomen. Summary After the procedure, it is common to have a sore throat, mild stomach discomfort, bloating, and nausea. Do not drive for 24 hours if you were given a sedative during the procedure. Follow instructions from your health care provider about what to eat or drink after your procedure. Return to your normal activities as told by your health care provider. This information is not intended to replace advice given to you by your health care provider. Make sure you discuss any questions you have with your health care provider. Document Released: 12/16/2012 Document Revised: 12/09/2018 Document Reviewed: 11/17/2018 [employer] Patient Education 2020 [employer]. [facility]11-11-2022 Hospital Discharge instructions Patient Education 05/11/2022 14:41:44 Dysphagia Dysphagia Dysphagia is trouble swallowing. This condition occurs when solids and liquids stick in a person's throat on the way down to the stomach, or when food takes longer to get to the stomach than usual. You may have problems swallowing food, liquids, or both. You may also have pain while trying to swallow. It may take you more time and effort to swallow something. What are the causes? This condition may be caused by: Muscle problems. They may make it difficult for you to move food and liquids through the esophagus,which is the tube that connects your mouth to your stomach. Blockages. You may have ulcers, scar tissue, or inflammation that blocks the normal passage of foodand liquids. Causes of these problems include: ?Acid reflux from your stomach into your esophagus (gastroesophageal reflux). ?Infections. ?Radiation treatment for cancer. ?Medicines taken without enough fluids to wash them down into your stomach. Stroke. This can affect the nerves and make it difficult to swallow. Nerve problems. These prevent signals from being sent to the muscles of your esophagus to squeeze (contract) and move what you swallow down to your stomach. Globus pharyngeus. This is a common problem that involves a feeling like something is stuck in yourthroat or a sense of trouble with swallowing, even though nothing is wrong with the swallowing passages. Certain conditions, such as cerebral palsy or Parkinson's disease. What are the signs or symptoms? Common symptoms of this condition include: A feeling that solids or liquids are stuck in your throat on the way down to the stomach. Pain while swallowing. Coughing or gagging while trying to swallow. Other symptoms include: Food moving back from your stomach to your mouth (regurgitation). Noises coming from your throat. Chest discomfort with swallowing. A feeling of fullness when swallowing. Drooling, especially when the throat is blocked. Heartburn. How is this diagnosed? This condition may be diagnosed by: Barium X-ray. In this test, you will swallow a white liquid that sticks to the inside of your esophagus. X-ray images are then taken. Endoscopy. In this test, a flexible telescope is inserted down your throat to look at your esophagus and your stomach. CT scans and an MRI. How is this treated? Treatment for dysphagia depends on the cause of this condition, such as: If the dysphagia is caused by acid reflux or infection, medicines may be used. They may include antibiotics and heartburn medicines. If the dysphagia is caused by problems with the muscles, swallowing therapy may be used to help youstrengthen your swallowing muscles. You may have to do specific exercises to strengthen the musclesor stretch them. If the dysphagia is caused by a blockage or mass, procedures to remove the blockage may be done. You may need surgery and a feeding tube. You may need to make diet changes. Ask your health care provider for specific instructions. Follow these instructions at home: Medicines Take mley-[id number]-[id number] and prescription medicines only as told by your health care provider. If you were prescribed an antibiotic medicine, take it as told by your health care provider. Do notstop taking the antibiotic even if you start to feel better. Eating and drinking Follow any diet changes as told by your health care provider. Work with a diet and nutrition teacher (dietitian) to create an eating plan that will help you get the nutrients you need in order to stay healthy. Eat soft foods that are easier to swallow. Cut your food into small pieces and eat slowly. Take small bites. Eat and drink only when you are sitting upright. Do not drink alcohol or caffeine. If you need help quitting, ask your health care provider. General instructions Check your weight every day to make sure you are not losing weight. Do not use any products that contain nicotine or tobacco, such as cigarettes, e- cigarettes, and chewing tobacco. If you need help quitting, ask your health care provider. Keep all follow-up visits as told by your health care provider. This is important. Contact a health care provider if you: Lose weight because you cannot swallow. Cough when you drink liquids. Cough up partially digested food. Get help right away if you: Cannot swallow your saliva. Have shortness of breath, a fever, or both. Have a hoarse voice and also have trouble swallowing. Summary Dysphagia is trouble swallowing. This condition occurs when solids and liquids stick in a person's throat on the way down to the stomach. You may cough or gag while trying to swallow. Dysphagia has many possible causes. Treatment for dysphagia depends on the cause of the condition. Keep all follow-up visits as told by your health care provider. This is important. This information is not intended to replace advice given to you by your health care provider. Make sure you discuss any questions you have with your health care provider. Document Released: 06/14/2001 Document Revised: 11/11/2019 Document Reviewed: 11/11/2019 [employer] Patient Education 2019 [employer]. Follow Up Care 05/04/2022 13:34:33 With:Teodora Ott CNP Address: When:1 to 2 weeks [facility] 11-11-2022 Miscellaneous Notes* Telephone Encounter - Amanda Gonzales RN - 05/11/2022 4:23 PM EST Call to pt. She will stop in for labs. . Id'd by name and . States understanding of the below, denies any questions or concerns, agreeswith plan of care and will follow. * Telephone Encounter - Charla Blackburn MA - 05/10/2022 10:06 AM EST Left v/m for pt to return call. Charla Blackburn MA * Telephone Encounter - Geneva Cabello - 05/09/2022 3:06 PM EST Called and left message for patient to call back regarding message below from . * Telephone Encounter - Stevo Neff MD - 05/09/2022 2:20 PM EST Please Call patient if MyChart note not read to review results/released to My Chart if tests completed at [facility]: High inflammatory tests associated with known rheumatoid arthritis- will monitor. Low vitamin D maybe associated with fatigue/joint/muscle pain. Start vitamin D script with food, then take over the counter vitamin D 4000 International Units daily with food after script completed. Rest of labs normal. New script sent to pharmacy. Notify office if medication change is not tolerated. Recheck nonfasting labs in 3months, orders have been placed. Happy to further review and discuss at follow up visit. Continue rest of treatment plan per instructions at last office visit. Thank you. 05/07/22 +RF26, +CCP 205, crp 0.9 (1.3), wbc 14.66 (7.11);low vitamin D 27.3;normal rest of cbc, cmp, esr 16, uric acid 3, vitamin b12-630;negative aileen ifa, hepatitis panel, quantiferon tb; Patient's request for medication is as follows: Requested Prescriptions Signed Prescriptions Disp Refills ergocalciferol 50,000 unit capsule (VITAMIN D2, DRISDOL) 16 capsule 0 Sig: (take by mouth with food twice a week, ONE CAPSULE ON SATURDAY AND ONE ON SATURDAY) FOR A TOTAL OF 8 WEEKS. Authorizing Provider: STEVO NEFF Prescription(s) as above. Please process accordingly. Stevo Neff MD documented in this encounterGood [facility]11-09-2022 Miscellaneous Notes* Telephone Encounter - Stevo Neff MD - 05/09/2022 2:39 PM EST Notify patient medication sent as requested Thank you. Patient's request for medication is as follows: Requested Prescriptions Pending Prescriptions Disp Refills celecoxib (CELEBREX) 200 mg capsule [Pharmacy Med Name: CELECOXIB 200 MG CAPSULE] 180 capsule 2 Sig: TAKE 1 CAPSULE BY MOUTH TWICE A DAY Prescription(s) as above. Please process accordingly. Stevo Neff MD * Telephone Encounter - Marian Harrington Ma - 05/08/2022 8:[address] Neff pt documented in this encounterGood [facility]aritan [facility]11-04-2022 NoteOPERATIVE NOTE OPERATION DATE: 05/03/2022 PREOPERATIVE DIAGNOSIS: Esophageal obstruction due to food bolus. POSTOPERATIVE DIAGNOSIS: Esophageal obstruction due to food bolus. PROCEDURE: EGD. SURGEON: Tee Pulido M.D. ANESTHESIA: General endotracheal. ESTIMATED BLOOD LOSS: None. COMPLICATIONS: None. INDICATIONS: This patient is a 61-year-old white female who presented to the emergency room with complaints of difficulty swallowing, having a food bolus stuck following dinner. She notes that he was eating a steak earlier and was unable to swallow and came to the emergency room. She apparently has a history of having previous episodes. She notes that recently she has had difficulty swallowing pill. PROCEDURE: The patient was placed on the endoscopy suite table in the supine position. After administration of adequate general endotracheal anesthesia, the endoscope was passed through the mouth in the usual fashion. The scope was passed easily into the esophagus. In the upper esophagus, there is an area of irritation and erythema, which appears to be the site where the bolus was stuck. There is no food bolus there currently. The scope was then passed more distally. There was residual food noted from about mid esophagus on down. This was pushed down into the stomach with the scope. Upon entering the stomach, there was mild gastritis noted to be present and residual food. The scope was passed through the pylorus and into the duodenum. The duodenal bulb appeared to be within normal limits. The scope was passed more distally down through the food. The remainder of the duodenum appeared to be normal as well. The scope was withdrawn into the stomach and retroflexed. The region of the cardia and fundus appeared to be within normal limits aside from some benign appearing polyps. The scope was then straightened. The greater and lesser curvatures were well visualized with no abnormalities noted. There was significant atrophic gastritis. The stomach was then decompressed and the scope was withdrawn into the esophagus. There was some additional residual food matter in the distal esophagus. This was flushed down into the stomach. There was significant angulation and tortuosity of the esophagus and possibly some disordered motility, but the mucosa itself mostly appeared to be within normal limits. The scope was then slowly withdrawn through the esophagus and there were no other significant abnormalities, other than the aforementioned finding. In the upper esophagus, again noted is an area of erythema and irritation most likely from the previous food bolus being lodged. The scope was then withdrawn. The patient tolerated the procedure well and was taken to the PACU in good condition.[id number] Evaluation note* Encounter Date Diagnosis Assessment Notes Treatment Notes Treatment Clinical Notes May, Subacute cough (ICD-10 - R05.2) May, Bronchitis (ICD-10 - J40) Acute bronchitis material was printed Drink plenty fluids, get plenty of rest. Take the prednisone as prescribed until gone. Continue your home medications as prescribed. Take Tylenol or Motrin as needed for aches pains or fevers. Follow-up with your family physician if no improvement in 2 to 3 days. [employer] Other 10-16-2022 Evaluation note* Encounter Date Diagnosis Assessment Notes Treatment Notes Treatment Clinical Notes Mar, Persistent cough (ICD-10 - R05.3) Advised patient that chest XR findings are negative. With no improvement with medications, will send in rx of Doxycycline and Boring to use as directed. Advised patient she needs follow up with PCP in 2-3 days. Immediate evalution in ER for signs/symptoms as discussed. Patient verbalizes understanding and is agreeable with treatment plan [employer] Other 10-06-2022 Evaluation note* Encounter Date Diagnosis Assessment Notes Treatment Notes Treatment Clinical Notes Mar, Contact with and (suspected) exposure to other viral communicable diseases (ICD-10 - Z20.828) Mar, COVID-19 (ICD-10 - U07.1) Today you tested positive for the COVID virus. This mean you need to follow all CDC quarantine guidelines found at coronavirus.[place].g ov. It is important to rest, increase fluids, and stay at home. Recommend contacting primary care provider and discussing best course of action if you have chronic health conditions. COVID POSITIVE education handout discharge instructions. given. Mar, Bronchitis (ICD-10 - J40) Take medications as directed. Rest and increase fluid intake. Take meds with food to prevent stomach upset. Use inhaler as needed for coughing spells and SOB. It is better to use inhaler a few times a day over the next 2-3 days. Follow up with primary care provider if symptoms do not improve with treatment plan, although it may take a few weeks for the cough to go away [employer] Other 08-18-2022 History of Present illness Narrative* Tram Spear - 02/15/2022 2:00 PM EDT Ortho Nurse - Established Patient Intake Room#: 4 Date: 02/15/2022 2:20 PM Patient: Carolina Gomez MR#: [id number] : 1960 Age: 61 y.o. 3wk S/P R TKA Pt stated she is doing good she still has a limp and her pain is a 6/10 on the pain scale. Pt was not wearting her edgar hose and using a cane at the time of visit. Referring Physician: Medardo Vuong APRN-CNP Insurance: Payor: [employer] / [facility] / Product Type: *No Product type* / Chief Complaint Patient presents with Right Knee - Post Op Visit Visit Vitals Temp 98 F (36.7 C) (Temporal) Ht 1.499 m (4' 11 ) Wt 78.5 kg (173 lb) BMI 34.94 kg/m Pain Recent Labs No results found for: CRP No results found for: SEDRATE Lab Results Component Value Date WBC 10.6 01/24/2022 HGB 9.4 (L) 01/24/2022 HCT 28.9 (L) 01/24/2022 PLATELET 262 01/24/2022 MCV 89.6 01/24/2022 History Past Medical History: Diagnosis Date Asthma Diabetes mellitus pre GERD (gastroesophageal reflux disease) Hypothyroidism PE (pulmonary thromboembolism) Past Surgical History: Procedure Laterality Date ARTHROPLASTY KNEE TOTAL Right 01/23/2022 Laterality: Right; Surgeon: Puja Deluca MD; Location: [facility] OR ARTHROPLASTY KNEE TOTAL Bilateral partial CHOLECYSTECTOMY FOOT SURGERY Bilateral corrective surgery HYSTERECTOMY REMOVAL CATARACT (PEM) Bilateral Family History: Her family history is not on file. Social History: Her reports that she has never smoked. She has never used smokeless tobacco. She reports current alcohol use. She reports that she does not use drugs. Outpatient Medications Prior to Visit Medication Sig Dispense Refill acetaminophen 325 MG tablet Take 2 tablets by mouth every 4 hours as needed for Mild Pain. 50 tablet 1 albuterol 108 (90 Base) MCG/ACT Aero Soln inhaler INHALE 2 PUFFS BY MOUTH EVERY 4 HOURS NEEDED Azelastine HCl 137 MCG/SPRAY Solution nasal spray USE 2 SPRAYS IN EACH NOSTRIL TWICE DAILY, NEED TOUSE REGULARLY FOR BENEFIT benzonatate 200 MG capsule TAKE 1 CAPSULE BY MOUTH EVERY 8 HOURS NEEDED FOR COUGH celecoxib 200 MG capsule Take 1 capsule by mouth 2 times daily. 84 capsule 0 cetirizine 10 MG tablet 2 times daily. cholestyramine 4 g Pack Take 4 g by mouth daily every morning. Denosumab (PROLIA SC) every 6 months. docusate 100 MG capsule Take 1 capsule by mouth 2 times daily. 60 capsule 0 doxycycline monohydrate 100 MG tablet Take 100 mg by mouth 2 times daily. Enoxaparin Sodium 40 MG/0.4ML injection Inject 0.4 mL under the skin daily. 12 mL 0 fluticasone 50 MCG/ACT Suspension nasal spray 2 sprays by Nasal route daily. HERBAL PRODUCT daily. Nerve 911 levothyroxine 137 MCG tablet Take 137 mcg by mouth daily. Multiple Vitamin (Multi-Vitamin) tablet Take 1 tablet by mouth daily every morning. omeprazole [address] capsule TAKE 1 CAPSULE BY MOUTH EVERY MORNING *CALL OFFICE TO SCHEDULE FOLLOW UP* ondansetron 4 MG tablet TAKE 1 TABLET BY MOUTH EVERY 12 HOURS NEEDED FOR NAUSEA FOR 5 DAYS oxyCODONE 5 MG tablet Take 1-2 tabs po q 6 hours prn pain. Wean as tolerated. 20 tablet 0 Ozempic, 1 MG/DOSE, 4 MG/3ML Solution Pen-injector INJECT 1MG SUBCUTANEOUSLY ONCE WEEKLY Probiotic Product (Align) capsule TAKE 1 CAPSULE DAILY AFTER COMPLETING ANTIBIOTICS COURSE triamcinolone 0.1 % Ointment ointment APPLY TO AFFECTED AREAS OF RASH TWICE DAILY NEEDED FOR 30 DAYS Upadacitinib (RINVOQ PO) Take 15 mg by mouth daily. Wixela Inhub 250-50 MCG/ACT Aerosol Powder, breath activated inhaler INHALE 1 PUFF INTO LUNGS TWICEDAILY. USE REGULARLY FOR BENEFIT. RINSE MOUTH AFTER USE zafirlukast 20 MG tablet Take 20 mg by mouth 2 times daily. No facility-administered medications prior to visit. Current Outpatient Medications: acetaminophen 325 MG tablet, Take 2 tablets by mouth every 4 hours as needed for Mild Pain., Disp: 50 tablet, Rfl: 1 albuterol 108 (90 Base) MCG/ACT Aero Soln inhaler, INHALE 2 PUFFS BY MOUTH EVERY 4 HOURS NEEDED,Disp: , Rfl: Azelastine HCl 137 MCG/SPRAY Solution nasal spray, USE 2 SPRAYS IN EACH NOSTRIL TWICE DAILY, NEED TO USE REGULARLY FOR BENEFIT, Disp: , Rfl: benzonatate 200 MG capsule, TAKE 1 CAPSULE BY MOUTH EVERY 8 HOURS NEEDED FOR COUGH, Disp: , Rfl: celecoxib 200 MG capsule, Take 1 capsule by mouth 2 times daily., Disp: 84 capsule, Rfl: 0 cetirizine 10 MG tablet, 2 times daily., Disp: , Rfl: cholestyramine 4 g Pack, Take 4 g by mouth daily every morning., Disp: , Rfl: Denosumab (PROLIA SC), every 6 months., Disp: , Rfl: docusate 100 MG capsule, Take 1 capsule by mouth 2 times daily., Disp: 60 capsule, Rfl: 0 doxycycline monohydrate 100 MG tablet, Take 100 mg by mouth 2 times daily., Disp: , Rfl: Enoxaparin Sodium 40 MG/0.4ML injection, Inject 0.4 mL under the skin daily., Disp: 12 mL, Rfl: 0 fluticasone 50 MCG/ACT Suspension nasal spray, 2 sprays by Nasal route daily., Disp: , Rfl: HERBAL PRODUCT, daily. Nerve 911, Disp: , Rfl: levothyroxine 137 MCG tablet, Take 137 mcg by mouth daily., Disp: , Rfl: Multiple Vitamin (Multi-Vitamin) tablet, Take 1 tablet by mouth daily every morning., Disp: , Rfl: omeprazole [address] capsule, TAKE 1 CAPSULE BY MOUTH EVERY MORNING *CALL OFFICE TO SCHEDULE FOLLOW UP*, Disp: , Rfl: ondansetron 4 MG tablet, TAKE 1 TABLET BY MOUTH EVERY 12 HOURS NEEDED FOR NAUSEA FOR 5 DAYS, Disp: , Rfl: oxyCODONE 5 MG tablet, Take 1-2 tabs po q 6 hours prn pain. Wean as tolerated., Disp: 20 tablet, Rfl: 0 Ozempic, 1 MG/DOSE, 4 MG/3ML Solution Pen-injector, INJECT 1MG SUBCUTANEOUSLY ONCE WEEKLY, Disp: , Rfl: Probiotic Product (Align) capsule, TAKE 1 CAPSULE DAILY AFTER COMPLETING ANTIBIOTICS COURSE, Disp: , Rfl: triamcinolone 0.1 % Ointment ointment, APPLY TO AFFECTED AREAS OF RASH TWICE DAILY NEEDED FOR 30DAYS, Disp: , Rfl: Upadacitinib (RINVOQ PO), Take 15 mg by mouth daily., Disp: , Rfl: Wixela Inhub 250-50 MCG/ACT Aerosol Powder, breath activated inhaler, INHALE 1 PUFF INTO LUNGS TWICE DAILY. USE REGULARLY FOR BENEFIT. RINSE MOUTH AFTER USE, Disp: , Rfl: zafirlukast 20 MG tablet, Take 20 mg by mouth 2 times daily., Disp: , Rfl: Allergies: She is allergic to eliquis [apixaban], keflex [cephalexin], and penicillins. * JONATHAN Schwartz - 02/15/2022 2:00 PM EDT HPI: Carolina Gomez is 3 weeks s/p right TKA revision. She is happy with her recovery to date and could not be happier with the outcomes of the operation. She is participating in PT in the home setting, using lovenox for DVT prophylaxis along with compression stockings. She is using tylenol and oxycodone for pain control.. PHYSICAL EXAM: Today on examination she is Temp 98 F (36.7 C) (Temporal) Ht 1.499 m (4' 11 ) Wt 78.5 kg (173 lb) BMI 34.94 kg/m Smoking Status Never Smoker Body mass index is 34.94 kg/m . Pain is reported as 6/10. Incision is healing well without erythema, drainage, induration or evidence of dehiscence. There is mild global knee swelling. Calves are soft and non tender bilaterally with negative Homans sign. Distal neurovascular exam is intact. ROM is reported as unknown in physical therapy, today it is found to be 0-125. The examination is stable to varus and valgus stress. DIAGNOSTIC STUDIES/INTERPRETATION: X-rays were reviewed today and reveal Cemented Revision total knee arthroplasty in good position and alignment unchanged from the immediate postop films. Assessment/Plan: 3 weeks postop right TKA revision. Continue DVT prophylaxis as prescribed. Continue physical therapy- if ROM goals not obtained the patient is to call the office for a followup appointment otherwise plan for: Follow up [address] Deluca for clinical and radiological evaluation unless an earlier need should arise. Dental prophylaxis was prescribed and instructions given. All questions and concerns were addressed at this appointment and the patient expressed understanding. She is using oxy regularly. Would advise she use more tylenol and use less oxy. Also reports driving while using oxycodone-NO DRIVING while on any controlled substance from this practice. Voices understanding. All pertinent portions of the clinical mining support worker documentation was reviewed and agree. JONATHAN Schwartz I have reviewed the findings of the clinical mining support worker and agree with their assessment. JONATHAN Schwartz Ortho Nurse - Established Patient Intake Room#: 4 Date: 02/15/2022 2:20 PM Patient: Carolina Gomez MR#: [id number] : 1960 Age: 61 y.o. 3wk S/P R TKA Pt stated she is doing good she still has a limp and her pain is a 6/10 on the pain scale. Pt was not wearting her edgar hose and using a cane at the time of visit. Referring Physician: Medardo Vuong APRN-CNP Insurance: Payor: [facility] / Plan: [facility] / Product Type: *No Product type* / Chief Complaint Patient presents with Right Knee - Post Op Visit Visit Vitals Temp 98 F (36.7 C) (Temporal) Ht 1.499 m (4' 11 ) Wt 78.5 kg (173 lb) BMI 34.94 kg/m Pain Recent Labs No results found for: CRP No results found for: SEDRATE Lab Results Component Value Date WBC 10.6 01/24/2022 HGB 9.4 (L) 01/24/2022 HCT 28.9 (L) 01/24/2022 PLATELET 262 01/24/2022 MCV 89.6 01/24/2022 History Past Medical History: Diagnosis Date Asthma Diabetes mellitus pre GERD (gastroesophageal reflux disease) Hypothyroidism PE (pulmonary thromboembolism) Past Surgical History: Procedure Laterality Date ARTHROPLASTY KNEE TOTAL Right 01/23/2022 Laterality: Right; Surgeon: Puja Deluca MD; Location: [facility] OR ARTHROPLASTY KNEE TOTAL Bilateral partial CHOLECYSTECTOMY FOOT SURGERY Bilateral corrective surgery HYSTERECTOMY REMOVAL CATARACT (PEM) Bilateral Family History: Her family history is not on file. Social History: Her reports that she has never smoked. She has never used smokeless tobacco. She reports current alcohol use. She reports that she does not use drugs. Outpatient Medications Prior to Visit Medication Sig Dispense Refill acetaminophen 325 MG tablet Take 2 tablets by mouth every 4 hours as needed for Mild Pain. 50 tablet 1 albuterol 108 (90 Base) MCG/ACT Aero Soln inhaler INHALE 2 PUFFS BY MOUTH EVERY 4 HOURS NEEDED Azelastine HCl 137 MCG/SPRAY Solution nasal spray USE 2 SPRAYS IN EACH NOSTRIL TWICE DAILY, NEED TOUSE REGULARLY FOR BENEFIT benzonatate 200 MG capsule TAKE 1 CAPSULE BY MOUTH EVERY 8 HOURS NEEDED FOR COUGH celecoxib 200 MG capsule Take 1 capsule by mouth 2 times daily. 84 capsule 0 cetirizine 10 MG tablet 2 times daily. cholestyramine 4 g Pack Take 4 g by mouth daily every morning. Denosumab (PROLIA SC) every 6 months. docusate 100 MG capsule Take 1 capsule by mouth 2 times daily. 60 capsule 0 doxycycline monohydrate 100 MG tablet Take 100 mg by mouth 2 times daily. Enoxaparin Sodium 40 MG/0.4ML injection Inject 0.4 mL under the skin daily. 12 mL 0 fluticasone 50 MCG/ACT Suspension nasal spray 2 sprays by Nasal route daily. HERBAL PRODUCT daily. Nerve 911 levothyroxine 137 MCG tablet Take 137 mcg by mouth daily. Multiple Vitamin (Multi-Vitamin) tablet Take 1 tablet by mouth daily every morning. omeprazole [address] capsule TAKE 1 CAPSULE BY MOUTH EVERY MORNING *CALL OFFICE TO SCHEDULE FOLLOW UP* ondansetron 4 MG tablet TAKE 1 TABLET BY MOUTH EVERY 12 HOURS NEEDED FOR NAUSEA FOR 5 DAYS oxyCODONE 5 MG tablet Take 1-2 tabs po q 6 hours prn pain. Wean as tolerated. 20 tablet 0 Ozempic, 1 MG/DOSE, 4 MG/3ML Solution Pen-injector INJECT 1MG SUBCUTANEOUSLY ONCE WEEKLY Probiotic Product (Align) capsule TAKE 1 CAPSULE DAILY AFTER COMPLETING ANTIBIOTICS COURSE triamcinolone 0.1 % Ointment ointment APPLY TO AFFECTED AREAS OF RASH TWICE DAILY NEEDED FOR 30 DAYS Upadacitinib (RINVOQ PO) Take 15 mg by mouth daily. Wixela Inhub 250-50 MCG/ACT Aerosol Powder, breath activated inhaler INHALE 1 PUFF INTO LUNGS TWICEDAILY. USE REGULARLY FOR BENEFIT. RINSE MOUTH AFTER USE zafirlukast 20 MG tablet Take 20 mg by mouth 2 times daily. No facility-administered medications prior to visit. Current Outpatient Medications: acetaminophen 325 MG tablet, Take 2 tablets by mouth every 4 hours as needed for Mild Pain., Disp: 50 tablet, Rfl: 1 albuterol 108 (90 Base) MCG/ACT Aero Soln inhaler, INHALE 2 PUFFS BY MOUTH EVERY 4 HOURS NEEDED,Disp: , Rfl: Azelastine HCl 137 MCG/SPRAY Solution nasal spray, USE 2 SPRAYS IN EACH NOSTRIL TWICE DAILY, NEED TO USE REGULARLY FOR BENEFIT, Disp: , Rfl: benzonatate 200 MG capsule, TAKE 1 CAPSULE BY MOUTH EVERY 8 HOURS NEEDED FOR COUGH, Disp: , Rfl: celecoxib 200 MG capsule, Take 1 capsule by mouth 2 times daily., Disp: 84 capsule, Rfl: 0 cetirizine 10 MG tablet, 2 times daily., Disp: , Rfl: cholestyramine 4 g Pack, Take 4 g by mouth daily every morning., Disp: , Rfl: Denosumab (PROLIA SC), every 6 months., Disp: , Rfl: docusate 100 MG capsule, Take 1 capsule by mouth 2 times daily., Disp: 60 capsule, Rfl: 0 doxycycline monohydrate 100 MG tablet, Take 100 mg by mouth 2 times daily., Disp: , Rfl: Enoxaparin Sodium 40 MG/0.4ML injection, Inject 0.4 mL under the skin daily., Disp: 12 mL, Rfl: 0 fluticasone 50 MCG/ACT Suspension nasal spray, 2 sprays by Nasal route daily., Disp: , Rfl: HERBAL PRODUCT, daily. Nerve 911, Disp: , Rfl: levothyroxine 137 MCG tablet, Take 137 mcg by mouth daily., Disp: , Rfl: Multiple Vitamin (Multi-Vitamin) tablet, Take 1 tablet by mouth daily every morning., Disp: , Rfl: omeprazole [address] capsule, TAKE 1 CAPSULE BY MOUTH EVERY MORNING *CALL OFFICE TO SCHEDULE FOLLOW UP*, Disp: , Rfl: ondansetron 4 MG tablet, TAKE 1 TABLET BY MOUTH EVERY 12 HOURS NEEDED FOR NAUSEA FOR 5 DAYS, Disp: , Rfl: oxyCODONE 5 MG tablet, Take 1-2 tabs po q 6 hours prn pain. Wean as tolerated., Disp: 20 tablet, Rfl: 0 Ozempic, 1 MG/DOSE, 4 MG/3ML Solution Pen-injector, INJECT 1MG SUBCUTANEOUSLY ONCE WEEKLY, Disp: , Rfl: Probiotic Product (Align) capsule, TAKE 1 CAPSULE DAILY AFTER COMPLETING ANTIBIOTICS COURSE, Disp: , Rfl: triamcinolone 0.1 % Ointment ointment, APPLY TO AFFECTED AREAS OF RASH TWICE DAILY NEEDED FOR 30DAYS, Disp: , Rfl: Upadacitinib (RINVOQ PO), Take 15 mg by mouth daily., Disp: , Rfl: Wixela Inhub 250-50 MCG/ACT Aerosol Powder, breath activated inhaler, INHALE 1 PUFF INTO LUNGS TWICE DAILY. USE REGULARLY FOR BENEFIT. RINSE MOUTH AFTER USE, Disp: , Rfl: zafirlukast 20 MG tablet, Take 20 mg by mouth 2 times daily., Disp: , Rfl: Allergies: She is allergic to eliquis [apixaban], keflex [cephalexin], and penicillins. [facility]* Nursing Notes - Greta Claudio RN - 01/24/2022 4:09 PM EDT Patient states pain has improved slightly. Still rates a 7-8/10. OnQ ball decreased to 4. Patient states she is comfortable discharging. [facility] Miscellaneous Notes* Nursing Notes - Greta Claudio RN - 01/24/2022 4:09 PM EDT Patient states pain has improved slightly. Still rates a 7-8/10. OnQ ball decreased to 4. Patient states she is comfortable discharging. * Nursing Notes - Greta Claudio RN - 01/24/2022 4:07 PM EDT Medardo at bedside speaking with patient. * Nursing Notes - Greta Claudio RN - 01/24/2022 3:16 PM EDT Patient complaining of continuing 8/10 knee pain even after oxycodone and increasing onQ ball for one hour. Medardo Vuong CNP is notified. He orders a 5mg one time dose of oxycodone and to increase onQball, will do this and monitor pain. * Nursing Notes - Greta Claudio RN - 01/24/2022 2:32 PM EDT Discharge instructions and handouts are provided to the patient at this time. Education provided for hemovac drain care and emptying. She verbalizes understanding of this and is able to demonstrate emptying. Questions are answered. Patient complaining of some increased pain after therapy. Oxycodone provided- see MAR. Will monitor pain prior to discharging. Meds to beds with integrity seal intact delivered, patient verbalizes understanding of lovenox injections and new medications. Ice pack, ABDs, edgar hose given to patient. She denies further questions. * Nursing Notes - Greta Claudio RN - 01/24/2022 11:20 AM EDT Assessment is complete and remains unchanged from previous at this time with any exceptions noted in the flowsheet. Patient denies further needs and is left with call light and personals in reach. * Nursing Notes - Nata Lawrence RN - 01/24/2022 11:10 AM EDT Carolina was just given bedside teaching on her On Q Ball. The methods used for this teaching included discussion, hands on demonstrations, and material handouts. Her teaching begin with the purpose ofthe On Q Ball and it's use. All parts of the Ball were discussed and the working of the dial. Carolina was able to adjust her dial and flow rate. Her rate is currently set at 6ml/hr, Carolina adjusted her rate on her own. She is aware she can now increase her rate according to her level of pain. At this moment Carolina rates her pain level a 8 on a 1 to 10 scale. Her nurse Greta is medicating her as I am teaching. Carolina understands her pain management once home should begin with her scheduled medic ation, her ice wrap, movement, adjusting her On Q Ball, and finally her prescribed narcotic pain medication. I then discussed in details when to remove the inserted catheter and how to remove it. Carolina is aware the On Q Ball is totally disposable. Signs and symptoms that need medical attention were discussed as well. General care and showering were addressed. Carolina stated she had a good understanding of the teaching provided. She agrees with the discharge Plan of Care for using the On Q Ball as her first line for pain management on discharge. The plan is for Carolina to go home later today. She has been happy with her care here at [facility]. * Op Note - Puja Deluca MD - 01/24/2022 7:52 AM EDT DATE OF PROCEDURE: 01/23/2022 ATTENDING PHYSICIAN: Puja Deluca M.D. [employer] OPERATOR: Medardo Vuong CNP. 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 POSTOPERATIVE DIAGNOSES: 1. 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 3. Fracture of the medial epicondyle, incompetent medial collateral ligament. PROCEDURES PERFORMED: 1. Revision both components right total knee arthroplasty, 10440 2. Periarticular injection right knee. 3. Placement of continuous catheter adductor canal. ANESTHESIA: General. ANESTHESIOLOGIST: Per record. ESTIMATED BLOOD LOSS: 25 mL. COMPLICATIONS: None. INTRAVENOUS FLUIDS: Adequate. SPECIMENS: Bone. INSTRUMENTATION USED: DePuy Reluxune size 5 right CRS femoral component with a 12 distal medial augment, 4 posterior medial augment, a size 14 x 60 stem with a 4 mm offset adapter, size 3 rotating platform tibia, size 29 partially-coated sleeve, size 10 x 60 tibial stem, size 10 rotating platform CRSpolyethylene, and a 35 mm all-poly patella. INDICATIONS: Carolina is a 61-year-old female with a history of previous right partial medial arthroplasty who has developed postoperative instability, as well as severe arthritis, chronic pain, and ultimately failed conservative management. She was given the options for treatment and elected to proceed forward with surgical intervention. The complex nature of the surgery, the risks, benefits and alternatives were thoroughly explained and she was arranged for surgery, for which she appeared today. Upon arrival to the preoperative unit, the risks, benefits and alternatives were thoroughly explained, informed consent was verified, and the site was marked. After evaluation by Anesthesia and administration of preoperative antibiotics, patient was then brought to the operating room. DESCRIPTION OF THE PROCEDURE: Upon arrival to the operating room, patient was placed supine on the operating room table, and general anesthetic was induced. She was then repositioned with two leg holders, a bump and a tourniquet. A Vazquez catheter was placed under sterile conditions. The right lowerextremity was then elevated, prepped and draped in a sterile standard fashion. A proper timeout wasperformed. I began by utilizing the previous medial incision. I extended it superiorly and inferiorly as necessary. I came down over the extensor mechanism, performed a medial parapatellar arthrotomy. In comingthrough the knee encountered a sterile effusion, significant synovitis. A synovectomy was performed. The gutters were reestablished. 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 I continued then with exposure and gradually gained access to the distal femur. A step drill was used and, from here then, I placed a 5-degree distal femoral valgus cutting guide. The lateral cut was performed. The medial cut was performed, which was just under the surface of the medial femoral component. From here then, a combination of saws and osteotomes were used to gradually mobilize around the component. There was substantial bone loss from the epicondylar fracture, which would require augmentation later in the operation. Once done then, the ACL was nonexistent. The PCL was removed and the tibia was exposed. From here then, I used an extramedullary alignment guide. I positioned it to establish a neutral mechanical alignment and performed the proximal resection. I then mobilized around the medial tibial component, used a combination of osteotomes and oscillating reciprocating saws to mobilize the bone implant interface. At this point then, the lateral tibial plateau, andthen the medial arthroplasty were removed. At this point then, the flexion space was opened up and remnants of the medial meniscus, as well as the lateral meniscus, were removed. The PCL remnant was completely excised and the posterior knee was injected. I subluxed the tibia forward, and at this point then, I began by reaming the tibia. Given the incompetence of the medial collateral ligament, the severe medial disease, I opted for a full revision system, including the rotating platform polyethylene to allow constraint. As such, I also opted to usea small sleeve to utilize press-fit technology and reduce the long-term incidence of loosening. As such then, I reamed up to a size 11, chose a size 10. I then used the iCIMSach system and broached up to a 29 sleeve. I then sized it to a size 3, placed the trial component and used the keel punch. From here then, I turned my attention to the femur. The femur was now reexposed. I began by reaming up to a size 15, chose a 14 as my final size stem. I then sized it to a size 5 femoral component and placement of the 4:1 cutting block over the distalfemur, I did need offset to shift it posteriorly, which then allowed it appropriate lateral resection. I did need an augment on the posteromedial side and also a 12 mm augment on the distal medial side given the bone loss and epicondylar fracture, which fracture remnant was excised. From here then,the box was cut, the trial components were placed, and the knee was then brought out to extension, checked with initially an 8, but ultimately setting on a size 10 polyethylene. This demonstrated full range of motion, balance and stability, no polyethylene spinout. The patella was then measured to be approximately 23 mm thick. I resected approximately 9 mm, sized it to a 35, medialized the button, and placed the drill holes. The trial component had no subluxation or tilt, anatomic tracking. I was pleased with the performance of the trials. They were then all removed. The knee was irrigated, cleaned and dried. The posterior knee was inspected for any excessive bleeding. The final components were assembled on the back table. They were then cemented in. I cemented the tibial component in first at the level of the joint allowing for press-fit fixation of the sleeve. The femoral component was cemented in place, and then a trial polyethylene was placed. The knee was held in extension until complete polymerization had occurred. The patella was cemented, held with a clamp, and the periarticular injection was administered. Once the cement had polymerized, I retrialed the knee. I was pleased with the performance of the size 10. There was no instability or spinout, full range of motion, good balance throughout. At this point then, the tourniquet waslet down, hemostasis was obtained, the final polyethylene was placed. There was no change from the p erformance of the trial and, at this point then, I turned my attention towards wound closure. The wound was irrigated, soaked with Betadine, irrigated further. The remaining periarticular injection was placed. The On-Q catheter was then placed into the knee. I lifted up the VMO. I bluntly dissectedup to the inferior border of the adductor canal. I passed the catheter; it flushed appropriately. Amedium-sized Hemovac drain was then placed, and the knee was then closed over a gram of vancomycin powder starting first with a #1 Vicryl, over sewn with a #2 Quill for the arthrotomy, multiple layers of 0-Vicryl and 0-Quill for the subcuticular layer, asha for the skin. The extremity was cleansed, a sterile dressing applied. The patient was woken up from the anesthetic, extubated and taken tothe postoperative care unit in stable condition. POSTOPERATIVE PLAN OF CARE: 1. Weight bearing as tolerated, therapy to start today. 2. Antibiotics for 24 hours postop. 3. DVT prophylaxis, both mechanical and chemical. 4. Follow up in the office in 2-3 weeks. This is billed as a revision both component total knee arthroplasty as there is no CPT that accurately correlates the work done, the technical nature, and the risk of this operation. For this patient, in particular, a standard revision system was utilized because of the need of constraint due to the catastrophic failure of her previous arthroplasty, instability, and bone loss. ATTENDING/ASSISTING PARTICIPATION: This operation could not have been safely performed (without compromising the technical results or length of the procedure) without the assistance of a skilled rn medical surgical. A rn medical surgical was medically necessary for positioning, retraction and instrume ntation. * Nursing Notes - Rosa Haque RN - 01/24/2022 6:40 AM EDT Vazquez removed 06 * Plan of Care - Rosa Haque RN - 01/24/2022 4:57 AM EDT Problem: Patient Care Overview Goal: Plan of Care Review Outcome: Ongoing Goal: Individualization & Mutuality Outcome: Ongoing Goal: Discharge Needs Assessment Outcome: Ongoing Goal: Interdisciplinary Rounds/Family Conf Outcome: Ongoing Problem: Mobility, Physical Impaired (Adult) Goal: Enhanced Mobility Skills Description: Patient will demonstrate the desired outcomes by discharge/transition of care. PT Goals: 1. Patient will perform all transfers with mod I to ensure safety at discharge. 2. Pt will ambulate 200ft with FWW and mod I to ensure safety with household ambulation. 3. Pt will increase surgical knee ROM to 0-110 degrees. 4. Pt will perform a modified car transfer with SB assist to ensure patient will be safe when leaving home. 5. Pt will ambulate up and down 4 steps with rail and SB assist to ensure safety in and out of home. 6. Pt will be independent with HEP per total joint binder in order to continue with ROM progressionat home. 7. Pt will demonstrate understanding of proper procedures for edema control. Nirmala Millan, PT, DPT 01/23/2022 Outcome: Ongoing Problem: Activity Intolerance (Adult) Goal: Activity Tolerance Description: Patient will demonstrate the desired outcomes by discharge/transition of care 1. Pt will complete LB dressing MOD I 2. Pt will complete sponge bathing MOD I 3. Pt will complete toileting MOD I 4. Pt will complete hygiene/grooming standing at sink independent 5. Pt will complete shower transfer SBA Azra Franco OT 01/23/2022 6:33 PM Outcome: Ongoing * Nursing Notes - Rosa Haque RN - 01/24/2022 4:00 AM EDT No change to assessment at this time - will continue to monitor. * Nursing Notes - Jacqueline Blake RN - 01/23/2022 4:17 PM EDT Assessment is complete and remains unchanged from previous at this time with any exceptions noted in the flowsheet. Patient denies further needs and is left with call light and personals in reach. * Brief Op Note - JONATHAN Schwartz - 01/23/2022 2:18 PM EDT POST OPERATIVE/PROCEDURE NOTE Carolina Manning Alt 61 y.o. female [id number] SURGEON Surgeon(s) and Role: * Puja Deluca MD - Primary [employer] OPERATOR JONATHAN Schwartz ANESTHESIOLOGIST SOFTWARE MAINTENANCE ENGINEER: Kodak Falcon APRN-KAREN SURGICAL STAFF Gravity Flow Irrigator: Cathy Ashby RN; Waldemar Churchill RN Nurse Practitioner: JONATHAN Schwartz Scrub Person: Silver Alcantar RN; Chayo Evans; Imani Jimenez; Tonia Gibbons RN PROCEDURE PERFORMED Procedure(s) (LRB): ARTHROPLASTY KNEE TOTAL - conversion from medial partial to total knee - right ( covid test O/A ) (Right) r knee periarticular injection r adductor canal catheter placment PRIMARY CLOSURE yes ANESTHESIA (type of) * No anesthesia type entered * ESTIMATED BLOOD LOSS 50 DRAINS Med hv BLOOD PRODUCTS None PRE OPERATIVE DIAGNOSIS 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 Item Serial No. Route Supervisor Lot No. LRB No. Used Action PALACOS R+G 1X40 SINGLE WITH GENTAMICIN - [id number] Other PALACOS R+G 1X40 SINGLE WITH GENTAMICIN [id number] Right 3 Implanted PATELLA - KNEE - [id number] PATELLA - KNEE DEPUY [id number] Right 1 Implanted PRESSFIT STEM - KNEE - [id number] PRESSFIT STEM - KNEE DEPUY [id number] Right 1 Implanted Revision Tibial Sleeve Porocoat Partially Coated 29mm DEPUY [id number] Right 1 Implanted revision Tibial Base Rotating Platform size 3 DEPUY [id number] Right 1 Implanted PRESSFIT STEM - KNEE - [id number] PRESSFIT STEM - KNEE DEPUY [id number] Right 1 Implanted Revision Distal Femoral Augment size 5 12mm DEPUY [id number] Right 1 Implanted Revision Posterior Femoral Augment size 5 4mm DEPUY [id number] Right 1 Implanted Revision Offset Stem Adaptor 4mm DEPUY [id number] Right 1 Implanted revision CRS Femoral size 5 right DEPUY [id number] Right 1 Implanted Revision CRS Rotating Platform Insert size 5 10mm AOX DEPUY [id number] Right 1 Implanted SPECIMENS ID Type Source Tests Collected by Time Destination A : Anterior Synovium x3 Tissue TISSUE FUNGUS CULTURE, ACID FAST CULTURE, TISSUE, ANAEROBE CULTURE,BACTERIAL CULTURE AND DIRECT SMEAR, LESION, TISSUE, DEVICE Puja Deluca MD 01/23/2022 1235 Medardo Vuong APRN-VALIDATION SPECIALIST January 23, 2022 2:18 PM * Nursing Notes - Jacqueline Blake RN - 01/23/2022 11:59 AM EDT Pt off unit to surgery * Nursing Notes - Amanda Mantilla RN - 01/18/2022 1:42 PM EDT 01/18/22 1338 Information Source Information Source patient Contact Information Landscape Account Manager Name Amanda Mantilla RN Case Manager's Living Environment Lives With spouse Living Arrangements house (One story home) Provides Primary Care For no one Primary Care Provided By self Support System Immediate family Able to Return to Prior Arrangements yes Employment/Financial Employed? 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 Cognitive/Perceptual/Developmental Current Mental Status/Cognitive Functioning no deficits noted Recent Changes in Mental Status/Cognitive Functioning no changes Developmental Stage Stage 7 (35-65 years/Middle Adulthood) Generativity vs. Stagnation Emotional/Psychological Affect no deficits noted Mood congruent to situation Verbal Skills no deficits noted Current Interpersonal Conduct/Behavior appropriate to situation Mental Health Conditions/Symptoms none;denies Thought Process Alterations no deficits noted Referral Information Referral Source physician CM met with patient this date to discuss post-surgical discharge plans. Patient states that she plans to return home with [facility] and then would later like to go to outpatient therapy at [facility]. Patient states that she has a wheeled walker, patient to instructed to bring with her on the day of surgery. Patient denies any other questions or needs at this time. CM to continue to follow and assist with discharge plans. [facility]* Nursing Notes - Greta Claudio RN - 01/24/2022 4:07 PM EDT Medardo at bedside speaking with patient. [facility] History of Present illness Narrative* Azra Franco, LACEY - 01/24/2022 3:20 PM EDT 01/24/22 1300 Time In/Out Time In 1300 Time Out 1410 Total Visit Time 70 minutes Subjective RN Approved Intervention as tolerated Existing Precautions/Restrictions fall Subjective Reports Pt sitting on EOB finished with lunch agreeable to session Cognitive Status Examination Orientation Status (Cognition) oriented x 4 Level of Consciousness alert Able to Follow Commands (Communication) WNL Personal Safety and Judgment intact General Pain Documentation (Adult, OB, Peds) Presence of Pain complains of pain/discomfort Pain Location knee, right Pain Management Interventions cold application Select Pain Scale (8/10) Clinical Impression Today's Treatment Included Pt instructed on total body sponge bathing sitting and standing at EOB, patient require min assist to reach distal LE. Pt instructed to sponge bathe until on-Q and asha are removed. Pt complete doffing and donning of socks and EDGAR hose requiring mod assist due to pain in right knee, review EDGAR hose wearing schedule and hygiene, spouse present for education and can assist. pt complete functional mobility into bathroom for walk in shower transfer, patient instructed on sequencing, placement of grab bars and utilizing shower chair. Pt reports she also has a tub shower with a shower bench if needed. Pt and spouse instructed on ice application and wearing schedule, nursing present upon exit * Amanda Mantilla RN - 01/24/2022 12:51 PM EDT Discharge instructions and continuity of care faxed to [facility]. * Amanda Mantilla RN - 01/24/2022 9:09 AM EDT Met with patient for follow up regarding discharge plan. Patient to return home with [facility].Questions answered regarding HHC and hemovac drain. Reviewed with patient that if she returns home with drain she will empty and record output, her [facility] nurse will report output to Dr. Deluca's officeand pull drain when instructed by his office. Patient verbalizes understanding. Patient has a FWW, spouse to bring today. Follow up appointment has been made, informed patient that she will be receiving a post-op follow up call tomorrow. * Nikky Dotson - 01/24/2022 8:50 AM EDT Total Joint Progress Note P O DAY # 1 PROCEDURE: Right total knee revision, partial to total SUBJECTIVE: No new symptoms or complaints PAIN RATIN/10 OBJECTIVE: Lab Results Component Value Date WBC 10.6 01/24/2022 HGB 9.4 (L) 01/24/2022 HGB 11.0 (L) 01/18/2022 HCT 28.9 (L) 01/24/2022 HCT 33.9 (L) 01/18/2022 PLATELET 262 01/24/2022 MCV 89.6 01/24/2022 Lab Results Component Value Date SODIUM 141 01/24/2022 POTASSIUM 3.9 01/24/2022 CHLORIDE 109 (H) 01/24/2022 CO2 27 01/24/2022 BUN 9 01/24/2022 BUN 12 01/18/2022 CREATSERUM 0.57 01/24/2022 CREATSERUM 0.60 01/18/2022 GLUCOSE 201 (H) 01/24/2022 Vital Signs: Vitals: 01/24/22 0416 BP: 127/59 Pulse: 99 Resp: 20 Temp: 97.9 F (36.6 C) Patient is alert and oriented times three. Abdomen: Soft, non-tender without organomegaly and bowel sounds are active Vascular: Dorsalis pedis/posterior tibial pulses RIGHT/LEFT/BILATERAL: Bilateral NORMAL / ABNORMAL (RESULT): Normal Neuro: Intact/deficit: intact to light touch Wound Appearance: DESCRIPTION; WOUND: incision Erythema: PRESENT OR ABSENT: absent Drainage none Dressing: Clean/dry/intact ABD in place DVT Screening Exam: Calves soft/non-tender Edgar hose: PRESENT OR ABSENT: present Foot pumps/ SCD's: PRESENT OR ABSENT: present Hemovac Drain Output: 110 mL/last shift Physical Therapy: ROM: 0-105 degrees Gait Distance: 50 Feet: ASSESSMENT: S/P Right knee revision, partial to total, POD#1. Doing well, denies complaint or concern. PLAN: 1. PT/OT 2. IV antibiotics 3. DVT prophylaxis- Lovenox 4. Discharge planning per medicine DISCHARGE PLANNING: plans; post hospital: SEE SS NOTES * Azra Franco OT - 01/23/2022 6:31 PM EDT 01/23/22 1720 Time In/Out Time In 1720 Time Out 1759 Total Visit Time 39 minutes Initial Evaluation/Screen Completed? yes General Information RN Approved Intervention as tolerated Admitting Diagnosis right knee conversion Surgical Procedure right partial to TKA with on-Q Past Surgical History Past Surgical History: Procedure Laterality Date ARTHROPLASTY KNEE TOTAL Bilateral partial CHOLECYSTECTOMY FOOT SURGERY Bilateral corrective surgery HYSTERECTOMY REMOVAL CATARACT (PEM) Bilateral Past Medical History Past Medical History: Diagnosis Date Asthma Diabetes mellitus pre GERD (gastroesophageal reflux disease) Hypothyroidism PE (pulmonary thromboembolism) Existing Precautions/Restrictions fall Previous Level of Function Bed Mobility/Transfers independent Bathing independent Upper Body Dressing independent Lower Body Dressing independent Grooming independent Toileting independent Eating independent Home Management Skills independent General Pain Documentation (Adult, OB, Peds) Presence of Pain denies pain/discomfort Home Setting Residence House Lives With spouse First floor setup bedroom Number of Stairs to Enter Home 2 Number of Stairs Within Home 0 Cognitive Status Examination Orientation Status (Cognition) oriented x 4 Level of Consciousness alert Able to Follow Commands (Communication) WNL Personal Safety and Judgment intact Sensory Examination Sensory Examination WFL Range of Motion (ROM) Range of Motion Examination bilateral upper extremity ROM was WFL Manual Muscle Testing (MMT) Dominant Hand right Bed Mobility Skill: Supine to Sit, Rehab Eval Level of [place]: Supine/Sit stand-by assist Physical Assist/Nonphysical Assist: Supine/Sit 1 person assist Transfer Skill: Sit to Stand, Rehab Eval Level of [place]: Sit/Stand contact guard Physical Assist/Nonphysical Assist: Sit/Stand 1 person assist Weight-Bearing Restrictions: Sit/Stand weight-bearing as tolerated Assistive Device for Transfer: Sit/Stand wheeled walker Upper Body Dressing Level of [place] independent Physical Assist/Nonphysical Assist set-up required Lower Body Dressing Level of [place] moderate assist (50% patients effort) Physical Assist/Nonphysical Assist 1 person assist General Therapy Interventions Planned Therapy Interventions (OT Eval) ADL retraining;balance training;transfer training Clinical Impression Co-evaluation/co-treatment performed? Yes, combination of simultaneous billable and individual billable skilled care Patient Instruction Pt instructed on LB dressing techniques evangelina mar CGA in sitting and standing with assist for catheter management. Rehab Potential (OT Eval) good, to achieve stated therapy goals Therapy Frequency 7 times a week Today's Treatment Included Pt doing well post op, she is alert and demonstrates good safety awareness during functional mobility and transfer training. Continue care plan yes Goals Goals For Discharge Pt will return home Discussed risk / benefits with patient;patient's family Therapist Recommendations At Discharge Recommendations OT Services not recommended at Discharge Plan Plan for next session continue with bathing, dressing, bathroom transfer and hygiene training Therapist Information License # [id number] 1. Pt will complete LB dressing MOD I 2. Pt will complete sponge bathing MOD I 3. Pt will complete toileting MOD I 4. Pt will complete hygiene/grooming standing at sink independent 5. Pt will complete shower transfer SBA * Nirmala Millan, PT - 01/23/2022 6:15 PM EDT 01/23/22 1655 Time In/Out Time In 1655 Time Out 1729 Total Visit Time 34 minutes Total Treatment Time (skilled, billable minutes) 34 minutes PT Therapy Completed Yes Initial Evaluation/Screen Completed? 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 Surgical Procedure R partial to TKA with ON-Q and hemovac Past Medical History Past Medical History: Diagnosis Date Asthma Diabetes mellitus pre GERD (gastroesophageal reflux disease) Hypothyroidism PE (pulmonary thromboembolism) Past Surgical History Past Surgical History: Procedure Laterality Date ARTHROPLASTY KNEE TOTAL Bilateral partial CHOLECYSTECTOMY FOOT SURGERY Bilateral corrective surgery HYSTERECTOMY REMOVAL CATARACT (PEM) Bilateral Existing Precautions/Restrictions fall Home Setting Residence House Lives With spouse First floor setup bedroom Number of stairs to enter home 2 Stair Railings at Home entry - with rail Mobility Equipment Available 2 wheeled walker Previous Level of Function Ambulation Skills independent Assistive Device none used Level of Ambulation community General Pain Documentation (Adult, OB, Peds) Presence of Pain denies pain/discomfort Cognitive Status Examination Orientation Status (Cognition) oriented x 4 Level of Consciousness alert Able to Follow Commands (Communication) WNL Personal Safety and Judgment intact Range of Motion (ROM) Range of Motion Examination deficits as listed below (R knee ROM 0-105 degrees) Manual Muscle Testing (MMT) Manual Muscle Testing Results deficits as listed below (R knee 4+/5) Bed Mobility Skill: Supine to Sit, Rehab Eval Level of [place]: Supine/Sit stand-by assist Physical Assist/Nonphysical Assist: Supine/Sit 1 person assist Transfer Skill: Sit To Stand, Rehab Eval [place] (Sit-Stand Transfers) contact guard Physical Assist/Nonphysical Assist: Sit/Stand 1 person assist Weight-Bearing Restrictions: Sit/Stand weight-bearing as tolerated Assistive Device For Transfer: Sit/Stand 2 wheeled walker Gait Skills, PT Eval Level of [place]: Gait contact guard Physical Assist/Nonphysical Assist: Gait 1 person assist Weight-Bearing Restrictions: Gait weight-bearing as tolerated Assistive Device For Transfer: Gait 2 wheeled walker Gait Distance 50 feet Gait Analysis, PT Eval Gait Pattern Used swing-through gait Gait Deviations Identified (Gait) decreased jevon;decreased gait speed;decreased heel strike;decreased step length Impairments Contributing To Gait Deviations decreased strength Balance Additional Documentation (Seated/Standing: Good) Sensory Examination Sensory Examination WFL Plan of Care Interventions Planned Therapy Interventions edema control;endurance;gait training;joint mobilization;ROM;strengthening;stretching;transfer training Additional Comments Pt performed glut sets, quad sets, heel slides, SAQ, SLR, and ankle pumps on the R LE for 1x10. Pt educated on sequencing for transfers and gait using FWW, and on heel-toe gait pattern. Pt able to progress to swing through pattern. Assessment Assessment Narrative Pt is a 61 year old female s/p R partial to TKA with ON-Q and hemovac. Pt is doing well post op without any complaints of pain. Gait slightly limited due to fatigue. Good R knee strength and ROM at this time with a flexible end feel into flexion. Pt performing mobility tasks safely and with proper use of the FWW. Pt will be safe to return home at time of discharge and receive PT services. Discharge Recommendations Recommend pt return home and have PT services. Clinical Impression Co-evaluation/co-treatment performed? Yes, combination of simultaneous billable and individual billable skilled care Criteria for Skilled Therapeutic Interventions Met (PT Eval) yes, treatment indicated Impairments Found (PT Eval) Strength;ROM (range of motion);Transfers;Gait/Locomotion;Edema;Aerobic capacity/endurance Rehab Potential (PT Eval) good Therapy Frequency BID (twice a day) Continue care plan yes Today's Treatment Included PT evaluation, ther ex, gait and patient education Therapist Recommendations At Discharge Recommendations PT Services recommended at Discharge Plan Plan for next session Next visit progress mobility and ROM, practice car transfers and steps, and review/perform HEP. PT Goals: 1. Patient will perform all transfers with mod I to ensure safety at discharge. 2. Pt will ambulate 200ft with FWW and mod I to ensure safety with household ambulation. 3. Pt will increase surgical knee ROM to 0-110 degrees. 4. Pt will perform a modified car transfer with SB assist to ensure patient will be safe when leaving home. 5. Pt will ambulate up and down 4 steps with rail and SB assist to ensure safety in and out of home. 6. Pt will be independent with HEP per total joint binder in order to continue with ROM progressionat home. 7. Pt will demonstrate understanding of proper procedures for edema control. * Amanda Mantilla RN - 01/23/2022 5:16 PM EDT Patient was assessed in [facility] on 01/18/22. Met with patient and spouse for follow up after surgery to discuss discharge plan. Patient plans to return home with spouse and [facility]. Referral was sent to [facility] prior to surgery, [facility] called back to report that [facility] is covered at 90%, patient and spouse are both agreeable. Patient reports that she has a wheeled walker and that her spouse will bring this with him when he comes to visit in the morning. Patient and spouse deny any other equipment needs at this time. Nursing reports that the incision has been closed with asha and hemovac is in place, will request a 3 week follow up appointment. [facility] to remove asha. Patient denies any other questions or needs at this time. Updated patient information faxed to [facility]. Follow up appointment scheduled for 02/15/22 @ 2:00 pm. * Chitra Santos RD - 01/23/2022 4:17 PM EDT NUTRITION ASSESSMENT: POST-OP ORTHOPEDIC Nutrition Assessment Will add Ensure Max to diet order @ 1000. Pt would benefit from the additional kcal, protein, vitamins, and minerals to help meet increased nutrition needs based on recent orthopedic surgery with . Recommend to continue supplementation at home for 2-4 weeks after surgery. Anthropometrics: Ht Readings from Last 1 Encounters: 01/23/22 1.499 m (4' 11 ) Wt Readings from Last 5 Encounters: 01/23/22 77.3 kg (170 lb 6.4 oz) 01/11/22 78.5 kg (173 lb) 01/11/22 78.5 kg (173 lb) Patient must be at least 60 in tall to calculate ideal body weight Body mass index is 34.42 kg/m . Nutrition Intake: Current Diet Orders Procedures DIET REGULAR Standing Status: Standing Number of Occurrences: 1 Allergies Allergen Reactions Eliquis [Apixaban] Itching Keflex [Cephalexin] Hives Penicillins Hives Labs: Lab Results Component Value Date GLUCOSE 109 (H) 01/18/2022 HGBA1C 5.8 01/18/2022 SODIUM 140 01/18/2022 POTASSIUM 4.5 01/18/2022 CALCIUM 9.4 01/18/2022 ALBUMIN 3.3 (L) 01/18/2022 TP 6.1 (L) 01/18/2022 BUN 12 01/18/2022 CREATSERUM 0.60 01/18/2022 AST 18 01/18/2022 ALT 14 01/18/2022 HGB 11.0 (L) 01/18/2022 HCT 33.9 (L) 01/18/2022 WBC 6.8 01/18/2022 RBC 3.77 (L) 01/18/2022 PMH & PSH: Past Medical History: Diagnosis Date Asthma Diabetes mellitus pre GERD (gastroesophageal reflux disease) Hypothyroidism PE (pulmonary thromboembolism) Past Surgical History: Procedure Laterality Date ARTHROPLASTY KNEE TOTAL Bilateral partial CHOLECYSTECTOMY FOOT SURGERY Bilateral corrective surgery HYSTERECTOMY REMOVAL CATARACT (PEM) Bilateral Nutrition Diagnosis NI-5.1 Increased protein needs related to increased demand for protein as evidenced by s/p orthopedic surgery. Interventions Provide Ensure Max @ 1000 once daily Monitoring & Evaluation Monitor PO intake, labs, wt, and ONS intake. JOSE DE JESUS Tamayo Registered Dietitian, Licensed Dietitian 01/23/22 * JONATHAN Schwartz - 01/23/2022 2:18 PM EDT THIS PATIENT HAS HAD ORTHOPEDIC SURGERY AND IS EXPECTED TO HAVE PAIN REQUIRING NARCOTICS FOR >7 DAYS AND MAY NEED UP TO 12 tabs of oxycodone PER DAY AND THEREFORE 30tabs ARE BEING DISPENSED IN ACCORDANCE WITH POC DISCUSSED WITH DR DELUCA. [facility]* Nursing Notes - Greta Claudio RN - 01/24/2022 3:16 PM EDT Patient complaining of continuing 8/10 knee pain even after oxycodone and increasing onQ ball for one hour. Medardo Vuong CNP is notified. He orders a 5mg one time dose of oxycodone and to increase onQball, will do this and monitor pain. [facility]07-27-2022 Note* Nursing Notes - Greta Claudio RN - 01/24/2022 2:32 PM EDT Discharge instructions and handouts are provided to the patient at this time. Education provided for hemovac drain care and emptying. She verbalizes understanding of this and is able to demonstrate emptying. Questions are answered. Patient complaining of some increased pain after therapy. Oxycodone provided- see NOHEMI. Will monitor pain prior to discharging. Meds to beds with integrity seal intact delivered, patient verbalizes understanding of lovenox injections and new medications. Ice pack, ABDs, edgar hose given to patient. She denies further questions. [facility]07-27-2022 Consult note* Andrea Bedolla MD - 01/24/2022 12:08 PM EDT Medical Consultation Doing well without complaint. Pain controlled. Therapy going well. General: No fever, chills, weight loss. HEENT: No sinus pain, ear pain, sore throat. Neck: No LAD. Lungs: No cough, sputum, pleuritic pain, hemoptysis, SOB. CV: No chest pain, palpitation, orthopnea, PND, edema. GI: No abd pain, nausea, vomiting, diarrhea, constipation, melena, hematochezia. : No dysuria, frequency, hematuria. Skin: No rash or lesion. Neuro: No mental status changes, headache, focal neurologic complaints. Objective: Blood pressure 126/65, pulse 100, temperature 97.9 F (36.6 C), temperature source Oral, resp. rate 17, height 1.499 m (4' 11 ), weight 77.3 kg (170 lb 6.4 oz), SpO2 94 %. Results for orders placed or performed during the hospital encounter of 01/23/22 SCREEN: MRSA ONLY, NARES (ISOLATION SCREEN) Specimen: NARES; E-Swab Result Value Ref Range SCREEN: MRSA NOT DETECTED NOT DETECTED STAPHYOCOCCUS AUREUS BY PCR NOT DETECTED NOT DETECTED NOVEL CORONAVIRUS LAB 1 - NASOPHARYNGEAL Specimen: NASOPHARYNGEAL; Fluid/Swab Result Value Ref Range SARS COV 2 RNA, QL REAL TIME RT PCR NOT DETECTED NOT DETECTED NARRATIVE -1 4 ANAEROBE CULTURE Result Value Ref Range SPECIMEN DESCRIPTION SYNOVIAL FLUID COMMENT ANTERIOR SYNOVIUM RESULT-CULT NO GROWTH 1 DAY Report Status PENDING TISSUE CULTURE Result Value Ref Range SPECIMEN DESCRIPTION SYNOVIAL FLUID COMMENT ANTERIOR SYNOVIUM GRAM STAIN NO RESULT-CULT NO GROWTH 1 DAY Report Status PENDING CBC, EDIF, PLATELET Result Value Ref Range WBC (WHITE BLOOD COUNT) 10.6 3.6 - 11.0 10*3/uL RBC 3.22 (L) 4.0 - 5.4 10*6/uL HEMOGLOBIN (HGB) 9.4 (L) 12.0 - 16.0 G/DL HEMATOCRIT (HCT) 28.9 (L) 36.0 - 48.0 % MEAN CELL VOLUME 89.6 80.0 - 100.0 FL Mean Cell HGB 29.3 26.0 - 35.0 PG MEAN CELL HGB CONCENTRATION 32.7 27.0 - 37.0 G/DL RBC DISTRIBUTION 15.4 (H) 11.5 - 14.5 % PLATELET COUNT 262 130.0 - 400.0 10*3/uL MEAN PLATELET VOLUME 7.9 7.4 - 11.0 FL DIFFERENTIAL TYPE AUTO DIFF % NEUTROPHILS 87.6 (H) 37.0 - 75.0 % LYMPHOCYTE 8.1 (L) 20.0 - 55.0 % MONOCYTE % 4.2 0.0 - 10.0 % EOSINOPHIL % 0.0 0.0 - 11.0 % BASOPHIL % 0.1 0.0 - 2.0 % Absolute Neutrophil Count 9.3 (H) 1.4 - 6.5 10*3/uL LYMPHOCYTES, ABSOLUTE 0.90 (L) 1.2 - 3.4 10*3/uL MONOCYTES, ABSOLUTE 0.4 0.0 - 0.7 10*3/uL ABSOLUTE EOSINOPHIL COUNT 0.00 0.0 - 0.7 10*3/uL ABSOLUTE BASOPHIL COUNT 0.0 0.0 - 0.2 10*3/uL BASIC METABOLIC PANEL Result Value Ref Range GLUCOSE 201 (H) 70 - 100 MG/DL BUN 9 7 - 20 MG/DL CREATININE SERUM 0.57 0.52 - 1.04 MG/DL SODIUM 141 136 - 145 MMOL/L POTASSIUM 3.9 3.5 - 5.1 MMOL/L CHLORIDE 109 (H) 98 - 107 MMOL/L CARBON DIOXIDE (CO2) 27 22 - 30 MMOL/L ANION GAP 5 (L) 8 - 16 MMOL/L CALCIUM 8.1 (L) 8.4 - 10.2 MG/DL ESTIMATED GFR, NON AMER 114 ml/min/1.73sq.m ESTIMATED GFR, 138 ml/min/1.73sq.m GFR COMMENT Average GFR for 60-69 years old = 85. GLUCOSE (POC DEVICE) Result Value Ref Range GLUCOSE, POINT OF CARE 132 (H) 70 - 100 MG/DL Customer Account Technician [phone] GLUCOSE (POC DEVICE) Result Value Ref Range GLUCOSE, POINT OF CARE 196 (H) 70 - 100 MG/DL Customer Account Technician [phone] GLUCOSE (POC DEVICE) Result Value Ref Range GLUCOSE, POINT OF CARE 169 (H) 70 - 100 MG/DL Customer Account Technician [phone] REPEAT ABO/RH (D) TYPING Result Value Ref Range ABO/RH(D) A POSITIVE HEENT: NC/AT, PERRLA, EOMI, fundi benign, external ears normal, OP normal. Neck: No LAD/thyromegaly. No JVD/bruit. Lungs: Clear to auscultation bilaterally. No wheezes, rales, ronchi. Heart: RRR. No S3/S4. Abdomen: Soft, NT/ND, normal bowel sounds, no HSM, no bruits. Extremities: No clubbing, cyanosis, edema. Normal pulses. Neurologic: CN II-XII intact. Strength/DTR's/sensation symmetric. Cerebellar function normal. Skin: No rash or suspicious lesions. Musculoskeletal: No edema, redness, warmth, deformities. Psychiatric: Alert and oriented. Affect and mood normal. Assessment and Plan: 1. POD #1 - pain Rx, therapy, and anticoagulation per ortho. Ambulating well. 2. Eczema/allergies/asthma - resume home Rx. 3. Hypothyroid - Continue home dose. 4. Type 2 DM - home Rx. BMP normal. Medically stable for discharge. Andrea Bedolla MD 01/24/2022 [facility] Work Phone: [phone] 593-675907-27-2022 Consult note* Andrea Bedolla MD - 01/24/2022 12:08 PM EDT Medical Consultation Doing well without complaint. Pain controlled. Therapy going well. General: No fever, chills, weight loss. HEENT: No sinus pain, ear pain, sore throat. Neck: No LAD. Lungs: No cough, sputum, pleuritic pain, hemoptysis, SOB. CV: No chest pain, palpitation, orthopnea, PND, edema. GI: No abd pain, nausea, vomiting, diarrhea, constipation, melena, hematochezia. : No dysuria, frequency, hematuria. Skin: No rash or lesion. Neuro: No mental status changes, headache, focal neurologic complaints. Objective: Blood pressure 126/65, pulse 100, temperature 97.9 F (36.6 C), temperature source Oral, resp. rate 17, height 1.499 m (4' 11 ), weight 77.3 kg (170 lb 6.4 oz), SpO2 94 %. Results for orders placed or performed during the hospital encounter of 01/23/22 SCREEN: MRSA ONLY, NARES (ISOLATION SCREEN) Specimen: NARES; E-Swab Result Value Ref Range SCREEN: MRSA NOT DETECTED NOT DETECTED STAPHYOCOCCUS AUREUS BY PCR NOT DETECTED NOT DETECTED NOVEL CORONAVIRUS LAB 1 - NASOPHARYNGEAL Specimen: NASOPHARYNGEAL; Fluid/Swab Result Value Ref Range SARS COV 2 RNA, QL REAL TIME RT PCR NOT DETECTED NOT DETECTED NARRATIVE -1 4 ANAEROBE CULTURE Result Value Ref Range SPECIMEN DESCRIPTION SYNOVIAL FLUID COMMENT ANTERIOR SYNOVIUM RESULT-CULT NO GROWTH 1 DAY Report Status PENDING TISSUE CULTURE Result Value Ref Range SPECIMEN DESCRIPTION SYNOVIAL FLUID COMMENT ANTERIOR SYNOVIUM GRAM STAIN NO RESULT-CULT NO GROWTH 1 DAY Report Status PENDING CBC, EDIF, PLATELET Result Value Ref Range WBC (WHITE BLOOD COUNT) 10.6 3.6 - 11.0 10*3/uL RBC 3.22 (L) 4.0 - 5.4 10*6/uL HEMOGLOBIN (HGB) 9.4 (L) 12.0 - 16.0 G/DL HEMATOCRIT (HCT) 28.9 (L) 36.0 - 48.0 % MEAN CELL VOLUME 89.6 80.0 - 100.0 FL Mean Cell HGB 29.3 26.0 - 35.0 PG MEAN CELL HGB CONCENTRATION 32.7 27.0 - 37.0 G/DL RBC DISTRIBUTION 15.4 (H) 11.5 - 14.5 % PLATELET COUNT 262 130.0 - 400.0 10*3/uL MEAN PLATELET VOLUME 7.9 7.4 - 11.0 FL DIFFERENTIAL TYPE AUTO DIFF % NEUTROPHILS 87.6 (H) 37.0 - 75.0 % LYMPHOCYTE 8.1 (L) 20.0 - 55.0 % MONOCYTE % 4.2 0.0 - 10.0 % EOSINOPHIL % 0.0 0.0 - 11.0 % BASOPHIL % 0.1 0.0 - 2.0 % Absolute Neutrophil Count 9.3 (H) 1.4 - 6.5 10*3/uL LYMPHOCYTES, ABSOLUTE 0.90 (L) 1.2 - 3.4 10*3/uL MONOCYTES, ABSOLUTE 0.4 0.0 - 0.7 10*3/uL ABSOLUTE EOSINOPHIL COUNT 0.00 0.0 - 0.7 10*3/uL ABSOLUTE BASOPHIL COUNT 0.0 0.0 - 0.2 10*3/uL BASIC METABOLIC PANEL Result Value Ref Range GLUCOSE 201 (H) 70 - 100 MG/DL BUN 9 7 - 20 MG/DL CREATININE SERUM 0.57 0.52 - 1.04 MG/DL SODIUM 141 136 - 145 MMOL/L POTASSIUM 3.9 3.5 - 5.1 MMOL/L CHLORIDE 109 (H) 98 - 107 MMOL/L CARBON DIOXIDE (CO2) 27 22 - 30 MMOL/L ANION GAP 5 (L) 8 - 16 MMOL/L CALCIUM 8.1 (L) 8.4 - 10.2 MG/DL ESTIMATED GFR, NON AMER 114 ml/min/1.73sq.m ESTIMATED GFR, 138 ml/min/1.73sq.m GFR COMMENT Average GFR for 60-69 years old = 85. GLUCOSE (POC DEVICE) Result Value Ref Range GLUCOSE, POINT OF CARE 132 (H) 70 - 100 MG/DL Customer Account Technician [phone] GLUCOSE (POC DEVICE) Result Value Ref Range GLUCOSE, POINT OF CARE 196 (H) 70 - 100 MG/DL Customer Account Technician [phone] GLUCOSE (POC DEVICE) Result Value Ref Range GLUCOSE, POINT OF CARE 169 (H) 70 - 100 MG/DL Customer Account Technician [phone] REPEAT ABO/RH (D) TYPING Result Value Ref Range ABO/RH(D) A POSITIVE HEENT: NC/AT, PERRLA, EOMI, fundi benign, external ears normal, OP normal. Neck: No LAD/thyromegaly. No JVD/bruit. Lungs: Clear to auscultation bilaterally. No wheezes, rales, ronchi. Heart: RRR. No S3/S4. Abdomen: Soft, NT/ND, normal bowel sounds, no HSM, no bruits. Extremities: No clubbing, cyanosis, edema. Normal pulses. Neurologic: CN II-XII intact. Strength/DTR's/sensation symmetric. Cerebellar function normal. Skin: No rash or suspicious lesions. Musculoskeletal: No edema, redness, warmth, deformities. Psychiatric: Alert and oriented. Affect and mood normal. Assessment and Plan: 1. POD #1 - pain Rx, therapy, and anticoagulation per ortho. Ambulating well. 2. Eczema/allergies/asthma - resume home Rx. 3. Hypothyroid - Continue home dose. 4. Type 2 DM - home Rx. BMP normal. Medically stable for discharge. Andrea Bedolla MD 01/24/2022 * Andrea Bedolla MD - 01/23/2022 5:37 PM EDTAssociated Order(s): IP CONSULT TO GENERAL MEDICINE Medical Consultation Patient a 61 year old female with a PMH allergies, eczema, hypothyroid, Type 2 DM, and asthma who present for right knee conversion. She was at her baseline state of health prior to admission and medically optimized by her primary care provider. Labs notable for mild anemia and a HgbA1C of 5.8. Sheis doing well postoperatively. Pain reasonably controlled. Denies CP, palpitations, SOB, cough, sputum, nausea, vtg. Has not ambulated or voided yet. Eczema controlled. Allergies also controlled and tolerating medication. Known hypothyroid. she is feeling well without complaint or medication side effect. she denies fatigue, cold, constipation, dry skin, weight gain, weakness, abnormal periods (for females), hair loss, depression, memory problems, edema. Known type 2 diabetes. she is feeling well with no complaints relative to her diabetes. Blood sugars have been running normal. Patient has been compliant with medications. she denies medication side effects. she denies chest pain, SOB, LEROY, palpitations, orthopnea, PND, edema, headache, focal neurologic complaints, claudication, dysesthesias, polyuria, polydipsia. Normal urine output. No vision changes. Last eye exam UTD. Known asthma. Control is at baseline. No increase in rescue use. No increase in cough, sputum, SOB.Compliance with medication is good. No medication side effects. she denies fever, chills, hemoptysis, pleuritic pain. No oral pain or lesions. she denies fever, chills, headache, sore throat, chest pain, palpitations, nausea, vomiting, diarrhea, dysuria, frequency, hematuria. General: No fever, chills, weight loss. HEENT: No sinus pain, ear pain, sore throat. Neck: No LAD. Lungs: No cough, sputum, pleuritic pain, hemoptysis, SOB. CV: No chest pain, palpitation, orthopnea, PND, edema. GI: No abd pain, nausea, vomiting, diarrhea, constipation, melena, hematochezia. : No dysuria, frequency, hematuria. Skin: No rash or lesion. Neuro: No mental status changes, headache, focal neurologic complaints. Past Medical History: Diagnosis Date Asthma Diabetes mellitus pre GERD (gastroesophageal reflux disease) Hypothyroidism PE (pulmonary thromboembolism) Past Surgical History: Procedure Laterality Date ARTHROPLASTY KNEE TOTAL Bilateral partial CHOLECYSTECTOMY FOOT SURGERY Bilateral corrective surgery HYSTERECTOMY REMOVAL CATARACT (PEM) Bilateral Social History Socioeconomic History Marital status: Spouse name: Not on file Number of children: Not on file Years of education: Not on file Highest education level: Not on file Occupational History Not on file Tobacco Use Smoking status: Never Smoker Smokeless tobacco: Never Used Vaping Use Vaping Use: Never used Substance and Sexual Activity Alcohol use: Yes Comment: ocassional Drug use: Never Sexual activity: Not on file Other Topics Concern Not on file Social History Narrative Not on file Social Determinants of Health Financial Resource Strain: Not on file Food Insecurity: Not on file Transportation Needs: Not on file Physical Activity: Not on file Stress: Not on file Social Connections: Not on file Intimate Partner Violence: Not on file Housing Stability: Not on file Allergies Allergen Reactions Eliquis [Apixaban] Itching Keflex [Cephalexin] Hives Penicillins Hives Objective: Blood pressure 130/60, pulse 73, temperature 97.2 F (36.2 C), temperature source Temporal, resp. rate 18, height 1.499 m (4' 11 ), weight 77.3 kg (170 lb 6.4 oz), SpO2 100 %. Results for orders placed or performed during the hospital encounter of 01/23/22 SCREEN: MRSA ONLY, NARES (ISOLATION SCREEN) Specimen: NARES; E-Swab Result Value Ref Range SCREEN: MRSA NOT DETECTED NOT DETECTED STAPHYOCOCCUS AUREUS BY PCR NOT DETECTED NOT DETECTED NOVEL CORONAVIRUS LAB 1 - NASOPHARYNGEAL Specimen: NASOPHARYNGEAL; Fluid/Swab Result Value Ref Range SARS COV 2 RNA, QL REAL TIME RT PCR NOT DETECTED NOT DETECTED NARRATIVE -1 4 REPEAT ABO/RH (D) TYPING Result Value Ref Range ABO/RH(D) A POSITIVE HEENT: NC/AT, PERRLA, EOMI, fundi benign, external ears normal, OP normal. Neck: No LAD/thyromegaly. No JVD/bruit. Lungs: Clear to auscultation bilaterally. No wheezes, rales, ronchi. Heart: RRR. No S3/S4. Abdomen: Soft, NT/ND, normal bowel sounds, no HSM, no bruits. Extremities: No clubbing, cyanosis, edema. Normal pulses. Neurologic: CN II-XII intact. Strength/DTR's/sensation symmetric. Cerebellar function normal. Skin: No rash or suspicious lesions. Musculoskeletal: No edema, redness, warmth, deformities. Psychiatric: Alert and oriented. Affect and mood normal. Assessment and Plan: 1. POD #0 - pain Rx, therapy, and anticoagulation per ortho. 2. Eczema/allergies/asthma - start all home medication except immunosuppressive medications. Followrespiratory status closely. IS. 3. Hypothyroid - start home dose. 4. Type 2 DM - home Rx and SSI. BMP in am. GI prophylaxis. Andrea Bedolla MD 01/23/2022 [facility]* Nursing Notes - Greta Claudio RN - 01/24/2022 11:20 AM EDT Assessment is complete and remains unchanged from previous at this time with any exceptions noted in the flowsheet. Patient denies further needs and is left with call light and personals in reach. [facility]07-27[facility] Note* Nursing Notes - Nata Lawrence RN - 01/24/2022 11:10 AM EDT Carolina was just given bedside teaching on her On Q Ball. The methods used for this teaching included discussion, hands on demonstrations, and material handouts. Her teaching begin with the purpose ofthe On Q Ball and it's use. All parts of the Ball were discussed and the working of the dial. Carolina was able to adjust her dial and flow rate. Her rate is currently set at 6ml/hr, Carolina adjusted her rate on her own. She is aware she can now increase her rate according to her level of pain. At this moment Carolina rates her pain level a 8 on a 1 to 10 scale. Her nurse Greta is medicating her as I am teaching. Carolina understands her pain management once home should begin with her scheduled medic ation, her ice wrap, movement, adjusting her On Q Ball, and finally her prescribed narcotic pain medication. I then discussed in details when to remove the inserted catheter and how to remove it. Carolina is aware the On Q Ball is totally disposable. Signs and symptoms that need medical attention were discussed as well. General care and showering were addressed. Carolina stated she had a good understanding of the teaching provided. She agrees with the discharge Plan of Care for using the On Q Ball as her first line for pain management on discharge. The plan is for Carolina to go home later today. She has been happy with her care here at [facility]. [facility]07[facility] Hospital Discharge instructions* Discharge Instructions* Amanda Mantilla RN - 01/24/2022 8:17 AM EDT You have been given printed educational handouts on all new medications. Please refer to your greendischarge folder for handouts. You have been given seven ABD pads, one ice gel compression wrap, six ice gel packs, two pairs of EDGAR hose and all personal belongings. If at any time you have questions please refer to your green discharge folder with all at home care instructions. Edgar Hose: > Help reduce the risk of blood clots and decrease swelling > To be worn bilaterally to the lower extremities for 30 days post-op > You are able to take your EDGAR hose off for 1 hour for every 8 hours that they wear them Medications: > You have been sent home with prescriptions, including medication for pain to be taken as directed. Stay ahead and do not allow your pain to get out of control. > If prescribed Aspirin, take twice a day for 30 days. Do not skip a dose, this is your medication for the prevention of blood clots. > If you have not had a bowel movement by your 3rd post-operative day you will need to use a gentle over the counter laxative such as Milk of magnesia, Fiberlax, Miralax, etc. Bowels need to move within 3 days or take action. Gel Ice Packs > Change every 4 hours or as needed for swelling and pain for at least the first 2 weeks Ambulation > Weight bearing status : Full weight bearing as tolerated. For Knee Replacements: > Above weight bearing status as tolerated with a walker then progress to a cane if stable, unless noted otherwise by the physician or therapist. > Physical therapy 3 times per week for 6 full weeks > Maintain uninterrupted therapy if transitioning from home therapy to out patient therapy > No therabands over your wound/incision > Patients should be doing home exercises on days they are not working with a therapist > Do not rest with a pillow under the knee, work on flexion and extension exercises to improve range of motion Anesthesia Precautions & Expectations: After anesthesia, rest for [address], drink alcoholic beverages or make any important decisions during this time. General anesthesia may cause a sore throat, jaw discomfort or muscle aches. These symptoms can last for one or two days. If you have been discharged the same day as surgery, Dr. Deluca's office will call you the morning after your discharge to follow up with how your recovery is progressing at home. * Discharge Instr - Activity* Amanda Mantilla RN - 01/24/2022 8:15 AM EDT Ambulate with wheeled walker until follow up appointment or directed by Dr. Deluca. * Discharge Instr - Notify* Amanda Mantilla RN - 01/24/2022 8:16 AM EDT Contact Office ([phone]) if: > Total Knee ROM < 90 degrees upon admission to home health or at any time during recovery period > Any falls or injuries > Redness, drainage or swelling at the incision site that is out of the ordinary from post-operative findings (minor redness, swelling and warmth around the entire knee are common post-operatively) > Patient non-compliance with assistive devices during gait > Fever > 101 degrees. For low grade fevers use Incentive Spirometry @ 10 puffs per hour and tylenol as directed. * Discharge Instr - Wound Care* Greta Claudio RN - 01/23/2022 5:23 PM EDT Images from the original note were not included. Your incision is closed with asha. These are to be removed 10-14 days after you surgery by your home health care nurse. Your surgery day was 01/23/22. Do not get your incision wet until after your asha have been removed. Once the asha have been removed and you are able to shower do not saturate or submerge extremity in water (i.e. Bathtub, hot tub, etc.) until cleared by the provider. Do not wash/scrub directly over/on your incision. Pat your incision dry do not rub your incision with atowel. Do not place any lotions, ointments, creams or powder on your incision or operative leg. When applying your new ABD pad after showering as a reminder do not place any tape over you ABD pad. Your EDGAR hose are to hold your pad in place. When you go home after surgery, you may have one or more drains in place to help your wounds heal. Hemovac, Ashok Layne(ALEKSANDRA) and Laci are common drains used for wounds. The drain has a squeezable container connected to flexible tubing. The tubing is put into an area near your surgical incision. It is held in place by stitches. When the drain is pressed flat, a gentle suction helps remove fluid from the wound. Your doctor will tell you when your drain can be removed. [facility] [employer] Systems Taking Care of Your Drain(s) You will need to empty the drain and record the drainage amount on your wound drainage record sheet. Bring this record sheet to every appointment with your surgeon. What does normal drainage look like? After surgery, the color and consistency of your drainage may change in the following way: It is normal for your drainage to be a little bloody in the morning or when you move around and then return to a clear red or pink color the rest of the day. Call your surgeon s office and report if: The drainage color changed from a light color and has become bloody or bright red in color. The drainage smell has changed. The drainage has pus. How to Empty Your Drain Empty your drain in the morning and again in the evening. You should also empty the drain anytime it is half-way full. Follow these steps to empty your drain: Wash your hands well with soap and warm water. Rinse and dry. Get a measuring cup and your Wound Drainage Record Sheet. Use a record sheet to write down the amount and color of fluid from the drain. You can use the record sheet at the end of this handout or make your own. Unfasten the pin or clip that holds the drain to your clothing. Open the plug on the drain. Turn the drain upside down over the measuring cup and gently squeeze the drain to empty it. Continue to squeeze the drain. Press down on the drain until it is flat and replace the plug. All of the air needs to be out of the drain or it will not work properly. If you are not able to squeeze and plug the drain at the same time, it may help to put the drain massimo firm flat surface like a table. Do not let the drain dangle. Carefully pin or clip the drain to your clothing. Attach the drain lower than the area where it comes out of your body. Make sure the tubing lies flat with no kinks. Check the amount and color of the fluid in the measuring cup. Call your doctor if the fluid is cloudy, smells bad or the amount of fluid has increased. Write the date, time, amount and color of the fluid on the wound drainage record sheet. If you havemore than one drain, empty, measure and write down the amount of fluid for each drain. Empty the fluid into the toilet, rinse the measuring cup and flush the toilet. If you have more than one drain, repeat steps 3 to 10. Wash your hands well with soap and warm water. Rinse and dry Drain removal If you have Home Health Care, your drain will be removed by your Home Health Care Nurse. If you do not have Home Care, please call Dr. Deluca's nurse ([phone]) the morning after discharge with the recorded amount of drainage from your hemovac. The nurse will give you further instructions regarding when your drain should be removed. When to call the doctor? Call your doctor right away if you have any of the following: Fever of 100.4 degrees Fahrenheit (38 degrees Celsius) or higher Redness, swelling, or unusual drainage where the tube comes out of the skin Drainage that becomes milky, cloudy or smells bad A sudden increase in the amount of drainage Any new or increased pain Little or no drainage in the drain and fluid is leaking where the tube comes out of your skin Your drain will not stay pressed together after you have emptied it The drain tubing pulls out of your skin * Attachments The following attachments cannot be sent through Care Everywhere. * Enoxaparin (Lovenox) (Turkish) * docusate (oral/rectal) (Turkish) documented in this [facility]07-27-2022 Note* Op Note - Puja Deluca MD - 01/24/2022 7:52 AM EDT DATE OF PROCEDURE: 01/23/2022 ATTENDING PHYSICIAN: Puja Deluca M.D. [employer] OPERATOR: Medardo Vuong CNP. 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 POSTOPERATIVE DIAGNOSES: 1. 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 3. Fracture of the medial epicondyle, incompetent medial collateral ligament. PROCEDURES PERFORMED: 1. Revision both components right total [place], [address] 2. Periarticular injection right knee. 3. Placement of continuous catheter adductor canal. ANESTHESIA: General. ANESTHESIOLOGIST: Per record. ESTIMATED BLOOD LOSS: 25 mL. COMPLICATIONS: None. INTRAVENOUS FLUIDS: Adequate. SPECIMENS: Bone. INSTRUMENTATION USED: DePuy Reluxune size 5 right CRS femoral component with a 12 distal medial augment, 4 posterior medial augment, a size 14 x 60 stem with a 4 mm offset adapter, size 3 rotating platform tibia, size 29 partially-coated sleeve, size 10 x 60 tibial stem, size 10 rotating platform CRSpolyethylene, and a 35 mm all-poly patella. INDICATIONS: Carolina is a 61-year-old female with a history of previous right partial medial arthroplasty who has developed postoperative instability, as well as severe arthritis, chronic pain, and ultimately failed conservative management. She was given the options for treatment and elected to proceed forward with surgical intervention. The complex nature of the surgery, the risks, benefits and alternatives were thoroughly explained and she was arranged for surgery, for which she appeared today. Upon arrival to the preoperative unit, the risks, benefits and alternatives were thoroughly explained, informed consent was verified, and the site was marked. After evaluation by Anesthesia and administration of preoperative antibiotics, patient was then brought to the operating room. DESCRIPTION OF THE PROCEDURE: Upon arrival to the operating room, patient was placed supine on the operating room table, and general anesthetic was induced. She was then repositioned with two leg holders, a bump and a tourniquet. A Vazquez catheter was placed under sterile conditions. The right lowerextremity was then elevated, prepped and draped in a sterile standard fashion. A proper timeout wasperformed. I began by utilizing the previous medial incision. I extended it superiorly and inferiorly as necessary. I came down over the extensor mechanism, performed a medial parapatellar arthrotomy. In comingthrough the knee encountered a sterile effusion, significant synovitis. A synovectomy was performed. The gutters were reestablished. 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 I continued then with exposure and gradually gained access to the distal femur. A step drill was used and, from here then, I placed a 5-degree distal femoral valgus cutting guide. The lateral cut was performed. The medial cut was performed, which was just under the surface of the medial femoral component. From here then, a combination of saws and osteotomes were used to gradually mobilize around the component. There was substantial bone loss from the epicondylar fracture, which would require augmentation later in the operation. Once done then, the ACL was nonexistent. The PCL was removed and the tibia was exposed. From here then, I used an extramedullary alignment guide. I positioned it to establish a neutral mechanical alignment and performed the proximal resection. I then mobilized around the medial tibial component, used a combination of osteotomes and oscillating reciprocating saws to mobilize the bone implant interface. At this point then, the lateral tibial plateau, andthen the medial arthroplasty were removed. At this point then, the flexion space was opened up and remnants of the medial meniscus, as well as the lateral meniscus, were removed. The PCL remnant was completely excised and the posterior knee was injected. I subluxed the tibia forward, and at this point then, I began by reaming the tibia. Given the incompetence of the medial collateral ligament, the severe medial disease, I opted for a full revision system, including the rotating platform polyethylene to allow constraint. As such, I also opted to usea small sleeve to utilize press-fit technology and reduce the long-term incidence of loosening. As such then, I reamed up to a size 11, chose a size 10. I then used the broach system and broached up to a 29 sleeve. I then sized it to a size 3, placed the trial component and used the keel punch. From here then, I turned my attention to the femur. The femur was now reexposed. I began by reaming up to a size 15, chose a 14 as my final size stem. I then sized it to a size 5 femoral component and placement of the 4:1 cutting block over the distalfemur, I did need offset to shift it posteriorly, which then allowed it appropriate lateral resection. I did need an augment on the posteromedial side and also a 12 mm augment on the distal medial side given the bone loss and epicondylar fracture, which fracture remnant was excised. From here then,the box was cut, the trial components were placed, and the knee was then brought out to extension, checked with initially an 8, but ultimately setting on a size 10 polyethylene. This demonstrated full range of motion, balance and stability, no polyethylene spinout. The patella was then measured to be approximately 23 mm thick. I resected approximately 9 mm, sized it to a 35, medialized the button, and placed the drill holes. The trial component had no subluxation or tilt, anatomic tracking. I was pleased with the performance of the trials. They were then all removed. The knee was irrigated, cleaned and dried. The posterior knee was inspected for any excessive bleeding. The final components were assembled on the back table. They were then cemented in. I cemented the tibial component in first at the level of the joint allowing for press-fit fixation of the sleeve. The femoral component was cemented in place, and then a trial polyethylene was placed. The knee was held in extension until complete polymerization had occurred. The patella was cemented, held with a clamp, and the periarticular injection was administered. Once the cement had polymerized, I retrialed the knee. I was pleased with the performance of the size 10. There was no instability or spinout, full range of motion, good balance throughout. At this point then, the tourniquet waslet down, hemostasis was obtained, the final polyethylene was placed. There was no change from the p erformance of the trial and, at this point then, I turned my attention towards wound closure. The wound was irrigated, soaked with Betadine, irrigated further. The remaining periarticular injection was placed. The On-Q catheter was then placed into the knee. I lifted up the VMO. I bluntly dissectedup to the inferior border of the adductor canal. I passed the catheter; it flushed appropriately. Amedium-sized Hemovac drain was then placed, and the knee was then closed over a gram of vancomycin powder starting first with a #1 Vicryl, over sewn with a #2 Quill for the arthrotomy, multiple layers of 0-Vicryl and 0-Quill for the subcuticular layer, asha for the skin. The extremity was cleansed, a sterile dressing applied. The patient was woken up from the anesthetic, extubated and taken tothe postoperative care unit in stable condition. POSTOPERATIVE PLAN OF CARE: 1. Weight bearing as tolerated, therapy to start today. 2. Antibiotics for 24 hours postop. 3. DVT prophylaxis, both mechanical and chemical. 4. Follow up in the office in 2-3 weeks. This is billed as a revision both component total knee arthroplasty as there is no CPT that accurately correlates the work done, the technical nature, and the risk of this operation. For this patient, in particular, a standard revision system was utilized because of the need of constraint due to the catastrophic failure of her previous arthroplasty, instability, and bone loss. ATTENDING/ASSISTING PARTICIPATION: This operation could not have been safely performed (without compromising the technical results or length of the procedure) without the assistance of a skilled rn medical surgical. A rn medical surgical was medically necessary for positioning, retraction and instrume ntation. [employer] Work Phone: [phone]) 535-698407-27-2022 Note* Nursing Notes - Rosa Haque RN - 01/24/2022 6:40 AM EDT Vazquez removed 0630 [facility]07-27-2022 Note* Plan of Care - Rosa Haque RN - 01/24/2022 4:57 AM EDT Problem: Patient Care Overview Goal: Plan of Care Review Outcome: Ongoing Goal: Individualization & Mutuality Outcome: Ongoing Goal: Discharge Needs Assessment Outcome: Ongoing Goal: Interdisciplinary Rounds/Family Conf Outcome: Ongoing Problem: Mobility, Physical Impaired (Adult) Goal: Enhanced Mobility Skills Description: Patient will demonstrate the desired outcomes by discharge/transition of care. PT Goals: 1. Patient will perform all transfers with mod I to ensure safety at discharge. 2. Pt will ambulate 200ft with FWW and mod I to ensure safety with household ambulation. 3. Pt will increase surgical knee ROM to 0-110 degrees. 4. Pt will perform a modified car transfer with SB assist to ensure patient will be safe when leaving home. 5. Pt will ambulate up and down 4 steps with rail and SB assist to ensure safety in and out of home. 6. Pt will be independent with HEP per total joint binder in order to continue with ROM progressionat home. 7. Pt will demonstrate understanding of proper procedures for edema control. Nirmala Millan, PT, DPT 01/23/2022 Outcome: Ongoing Problem: Activity Intolerance (Adult) Goal: Activity Tolerance Description: Patient will demonstrate the desired outcomes by discharge/transition of care 1. Pt will complete LB dressing MOD I 2. Pt will complete sponge bathing MOD I 3. Pt will complete toileting MOD I 4. Pt will complete hygiene/grooming standing at sink independent 5. Pt will complete shower transfer SBA Azra Franco OT 01/23/2022 6:33 PM Outcome: Ongoing [facility]07-27-2022 Note* Nursing Notes - Rosa Haque RN - 01/24/2022 4:00 AM EDT No change to assessment at this time - will continue to monitor. [facility]07-26-2022 Consult note* Andrea Bedolla MD - 01/23/2022 5:37 PM EDTAssociated Order(s): IP CONSULT TO GENERAL MEDICINE Medical Consultation Patient a 61 year old female with a PMH allergies, eczema, hypothyroid, Type 2 DM, and asthma who present for right knee conversion. She was at her baseline state of health prior to admission and medically optimized by her primary care provider. Labs notable for mild anemia and a HgbA1C of 5.8. Sheis doing well postoperatively. Pain reasonably controlled. Denies CP, palpitations, SOB, cough, sputum, nausea, vtg. Has not ambulated or voided yet. Eczema controlled. Allergies also controlled and tolerating medication. Known hypothyroid. she is feeling well without complaint or medication side effect. she denies fatigue, cold, constipation, dry skin, weight gain, weakness, abnormal periods (for females), hair loss, depression, memory problems, edema. Known type 2 diabetes. she is feeling well with no complaints relative to her diabetes. Blood sugars have been running normal. Patient has been compliant with medications. she denies medication side effects. she denies chest pain, SOB, LEROY, palpitations, orthopnea, PND, edema, headache, focal neurologic complaints, claudication, dysesthesias, polyuria, polydipsia. Normal urine output. No vision changes. Last eye exam UTD. Known asthma. Control is at baseline. No increase in rescue use. No increase in cough, sputum, SOB.Compliance with medication is good. No medication side effects. she denies fever, chills, hemoptysis, pleuritic pain. No oral pain or lesions. she denies fever, chills, headache, sore throat, chest pain, palpitations, nausea, vomiting, diarrhea, dysuria, frequency, hematuria. General: No fever, chills, weight loss. HEENT: No sinus pain, ear pain, sore throat. Neck: No LAD. Lungs: No cough, sputum, pleuritic pain, hemoptysis, SOB. CV: No chest pain, palpitation, orthopnea, PND, edema. GI: No abd pain, nausea, vomiting, diarrhea, constipation, melena, hematochezia. : No dysuria, frequency, hematuria. Skin: No rash or lesion. Neuro: No mental status changes, headache, focal neurologic complaints. Past Medical History: Diagnosis Date Asthma Diabetes mellitus pre GERD (gastroesophageal reflux disease) Hypothyroidism PE (pulmonary thromboembolism) Past Surgical History: Procedure Laterality Date ARTHROPLASTY KNEE TOTAL Bilateral partial CHOLECYSTECTOMY FOOT SURGERY Bilateral corrective surgery HYSTERECTOMY REMOVAL CATARACT (PEM) Bilateral Social History Socioeconomic History Marital status: Spouse name: Not on file Number of children: Not on file Years of education: Not on file Highest education level: Not on file Occupational History Not on file Tobacco Use Smoking status: Never Smoker Smokeless tobacco: Never Used Vaping Use Vaping Use: Never used Substance and Sexual Activity Alcohol use: Yes Comment: ocassional Drug use: Never Sexual activity: Not on file Other Topics Concern Not on file Social History Narrative Not on file Social Determinants of Health Financial Resource Strain: Not on file Food Insecurity: Not on file Transportation Needs: Not on file Physical Activity: Not on file Stress: Not on file Social Connections: Not on file Intimate Partner Violence: Not on file Housing Stability: Not on file Allergies Allergen Reactions Eliquis [Apixaban] Itching Keflex [Cephalexin] Hives Penicillins Hives Objective: Blood pressure 130/60, pulse 73, temperature 97.2 F (36.2 C), temperature source Temporal, resp. rate 18, height 1.499 m (4' 11 ), weight 77.3 kg (170 lb 6.4 oz), SpO2 100 %. Results for orders placed or performed during the hospital encounter of 01/23/22 SCREEN: MRSA ONLY, NARES (ISOLATION SCREEN) Specimen: NARES; E-Swab Result Value Ref Range SCREEN: MRSA NOT DETECTED NOT DETECTED STAPHYOCOCCUS AUREUS BY PCR NOT DETECTED NOT DETECTED NOVEL CORONAVIRUS LAB 1 - NASOPHARYNGEAL Specimen: NASOPHARYNGEAL; Fluid/Swab Result Value Ref Range SARS COV 2 RNA, QL REAL TIME RT PCR NOT DETECTED NOT DETECTED NARRATIVE -1 4 REPEAT ABO/RH (D) TYPING Result Value Ref Range ABO/RH(D) A POSITIVE HEENT: NC/AT, PERRLA, EOMI, fundi benign, external ears normal, OP normal. Neck: No LAD/thyromegaly. No JVD/bruit. Lungs: Clear to auscultation bilaterally. No wheezes, rales, ronchi. Heart: RRR. No S3/S4. Abdomen: Soft, NT/ND, normal bowel sounds, no HSM, no bruits. Extremities: No clubbing, cyanosis, edema. Normal pulses. Neurologic: CN II-XII intact. Strength/DTR's/sensation symmetric. Cerebellar function normal. Skin: No rash or suspicious lesions. Musculoskeletal: No edema, redness, warmth, deformities. Psychiatric: Alert and oriented. Affect and mood normal. Assessment and Plan: 1. POD #0 - pain Rx, therapy, and anticoagulation per ortho. 2. Eczema/allergies/asthma - start all home medication except immunosuppressive medications. Followrespiratory status closely. IS. 3. Hypothyroid - start home dose. 4. Type 2 DM - home Rx and SSI. BMP in am. GI prophylaxis. Andrea Bedolla MD 01/23/2022 [facility]07-26-2022 Note* Nursing Notes - Jacqueline Blake RN - 01/23/2022 4:17 PM EDT Assessment is complete and remains unchanged from previous at this time with any exceptions noted in the flowsheet. Patient denies further needs and is left with call light and personals in reach. [facility]07-26-2022 Nurse Note* Margarita Lockett RN - 01/23/2022 2:52 PM EDT Patient transported to room 3760 by bed with 2 RN's. Patient stable and family waiting in room. Bedlock and in low position. Report given to Eneida BRIGHT. Wound reviewed and Qball check and is unclamped and infusing. [facility] Surgical operation note* Margarita Lockett RN - 01/23/2022 2:52 PM EDT Patient transported to room 3760 by bed with 2 RN's. Patient stable and family waiting in room. Bedlock and in low position. Report given to Eneida BRIGHT. Wound reviewed and Qball check and is unclamped and infusing. [facility]07-26-2022 Note* Brief Op Note - JONATHAN Schwartz - 01/23/2022 2:18 PM EDT POST OPERATIVE/PROCEDURE NOTE Carolina Manning Alt 61 y.o. female [id number] SURGEON Surgeon(s) and Role: * Puja Deluca MD - Primary LIQUID NATURAL GAS PLANT OPERATOR JONATHAN Schwartz ANESTHESIOLOGIST SOFTWARE MAINTENANCE ENGINEER: GURPREET Britton SURGICAL STAFF Gravity Flow Irrigator: Cathy Ashby RN; Waldemar Churchill RN Nurse Practitioner: JONATHAN Schwartz Scrub Person: Silver Alcantar RN; Chayo Evans; Imani Jimenez; Tonia Gibbons RN PROCEDURE PERFORMED Procedure(s) (LRB): ARTHROPLASTY KNEE TOTAL - conversion from medial partial to total knee - right ( covid test O/A ) (Right) r knee periarticular injection r adductor canal catheter placment PRIMARY CLOSURE yes ANESTHESIA (type of) * No anesthesia type entered * ESTIMATED BLOOD LOSS 50 DRAINS Med hv BLOOD PRODUCTS None PRE OPERATIVE DIAGNOSIS 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 Item Serial No. Route Supervisor Lot No. LRB No. Used Action PALACOS R+G 1X40 SINGLE WITH GENTAMICIN - [id number] Other PALACOS R+G 1X40 SINGLE WITH GENTAMICIN [id number] Right 3 Implanted PATELLA - KNEE - [id number] PATELLA - KNEE DEPUY [id number] Right 1 Implanted PRESSFIT STEM - KNEE - [id number] PRESSFIT STEM - KNEE DEPUY [id number] Right 1 Implanted Revision Tibial Sleeve Porocoat Partially Coated 29mm DEPUY [id number] Right 1 Implanted revision Tibial Base Rotating Platform size 3 DEPUY [id number] Right 1 Implanted PRESSFIT STEM - KNEE - [id number] PRESSFIT STEM - KNEE DEPUY [id number] Right 1 Implanted Revision Distal Femoral Augment size 5 12mm DEPUY [id number] Right 1 Implanted Revision Posterior Femoral Augment size 5 4mm DEPUY [id number] Right 1 Implanted Revision Offset Stem Adaptor 4mm DEPUY [id number] Right 1 Implanted revision CRS Femoral size 5 right DEPUY [id number] Right 1 Implanted Revision CRS Rotating Platform Insert size 5 10mm AOX DEPUY [id number] Right 1 Implanted SPECIMENS ID Type Source Tests Collected by Time Destination A : Anterior Synovium x3 Tissue TISSUE FUNGUS CULTURE, ACID FAST CULTURE, TISSUE, ANAEROBE CULTURE,BACTERIAL CULTURE AND DIRECT SMEAR, LESION, TISSUE, DEVICE Puja Deluca MD 01/23/2022 1235 Medardo Vuong APRN-VALIDATION SPECIALIST January 23, 2022 2:18 PM [facility]07-26-2022 Note* Nursing Notes - Jacqueline Blake RN - 01/23/2022 11:59 AM EDT Pt off unit to surgery [facility]07-21-2022 Note* Nursing Notes - Amanda Mantilla RN - 01/18/2022 1:42 PM EDT 01/18/22 1338 Information Source Information Source patient Contact Information Landscape Account Manager Name Amanda Mantilla RN Case Manager's Living Environment Lives With spouse Living Arrangements house (One story home) Provides Primary Care For no one Primary Care Provided By self Support System Immediate family Able to Return to Prior Arrangements yes Employment/Financial Employed? 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 Cognitive/Perceptual/Developmental Current Mental Status/Cognitive Functioning no deficits noted Recent Changes in Mental Status/Cognitive Functioning no changes Developmental Stage Stage 7 (35-65 years/Middle Adulthood) Generativity vs. Stagnation Emotional/Psychological Affect no deficits noted Mood congruent to situation Verbal Skills no deficits noted Current Interpersonal Conduct/Behavior appropriate to situation Mental Health Conditions/Symptoms none;denies Thought Process Alterations no deficits noted Referral Information Referral Source physician CM met with patient this date to discuss post-surgical discharge plans. Patient states that she plans to return home with [facility] and then would later like to go to outpatient therapy at [facility]. Patient states that she has a wheeled walker, patient to instructed to bring with her on the day of surgery. Patient denies any other questions or needs at this time. CM to continue to follow and assist with discharge plans. [facility]07-14-2022 History of Present illness Narrative* Freddy Manrique LPN - 01/11/2022 10:10 AM EDT Ortho Nurse - Patient Intake Room#: 2 Right knee pain of 6, partial done in 2009, no interventions since partial Date: 01/11/2022 10:28 AM Patient: Carolina Gomez MR#: [id number] : 1960 Age: 61 y.o. Referring Physician: Holly Dunbar DO Insurance: Payor: JESSY / [facility] / Product Type: *No Product type* / Chief Complaint Patient presents with Right Knee - Pain Visit Vitals Temp 98.5 F (36.9 C) (Temporal) Ht 1.499 m (4' 11 ) Wt 78.5 kg (173 lb) BMI 34.94 kg/m Pain Presence of Pain: complains of pain/discomfort Pain Location: knee, right Select Pain Scale: DVPRS (Defense and Veterans Pain Rating Scale) (Adult- Cognitively Intact) Pain Location: knee, right Select Pain Scale: DVPRS (Defense and Veterans Pain Rating Scale) (Adult- Cognitively Intact) Recent Labs No results found for: CRP No results found for: SEDRATE No results found for: WBC, WBCCOUNT, WBCFETAL, HGB, HCT, PLATELET, MCV History No past medical history on file. Past Surgical History: Procedure Laterality Date ARTHROPLASTY KNEE TOTAL Bilateral partial CHOLECYSTECTOMY FOOT SURGERY Bilateral corrective surgery HYSTERECTOMY REMOVAL CATARACT (PEM) Bilateral Family History: Her family history is not on file. Social History: Her reports that she has never smoked. She has never used smokeless tobacco. She reports current alcohol use. She reports that she does not use drugs. Additional Social History Y N Notes Do you live alone? [] [x] Who lives with you: Do you have children? [x] [] How many: 3 Do you currently work? 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 [x] [] How many do you have to climb to enter your home: What services do you currently receive at home? [] [x] Name: Do you have transportation to go to outpatient therapy if needed? [x] [] What Equipment do you have at home? [x] [] [x]Walker, []Crutches, []Commode Chair, []Shower []Chair, [x]cane, []bracing Are you followed by a batting machine operator? [] [x] Name: Are you followed by pain management? [] [x] Name: Are you followed by any other specialists? [x] [] Name: Rohini Glass armoring machine operator Dr Higgins Diabetes Outpatient Medications Prior to Visit Medication Sig Dispense Refill albuterol 108 (90 Base) MCG/ACT Aero Soln inhaler INHALE 2 PUFFS BY MOUTH EVERY 4 HOURS NEEDED Azelastine HCl 137 MCG/SPRAY Solution nasal spray USE 2 SPRAYS IN EACH NOSTRIL TWICE DAILY, NEED TOUSE REGULARLY FOR BENEFIT benzonatate 200 MG capsule TAKE 1 CAPSULE BY MOUTH EVERY 8 HOURS NEEDED FOR COUGH celecoxib 200 MG capsule Take 200 mg by mouth daily. Denosumab (PROLIA SC) Refills(s) 0 doxycycline monohydrate 100 MG tablet Take 100 mg by mouth 2 times daily. faMOTIdine 20 MG tablet Take 20 mg by mouth at bedtime. levothyroxine 137 MCG tablet Take 137 mcg by mouth daily. omeprazole [address] capsule TAKE 1 CAPSULE BY MOUTH EVERY MORNING *CALL OFFICE TO SCHEDULE FOLLOW UP* Ozempic, 1 MG/DOSE, 4 MG/3ML Solution Pen-injector INJECT 1MG SUBCUTANEOUSLY ONCE WEEKLY Probiotic Product (Align) capsule TAKE 1 CAPSULE DAILY AFTER COMPLETING ANTIBIOTICS COURSE triamcinolone 0.1 % Ointment ointment APPLY TO AFFECTED AREAS OF RASH TWICE DAILY NEEDED FOR 30 DAYS Upadacitinib (RINVOQ PO) Take by mouth. Wixela Inhub 250-50 MCG/ACT Aerosol Powder, breath activated inhaler INHALE 1 PUFF INTO LUNGS TWICEDAILY. USE REGULARLY FOR BENEFIT. RINSE MOUTH AFTER USE zafirlukast 20 MG tablet Take 20 mg by mouth 2 times daily. No facility-administered medications prior to visit. Current Outpatient Medications: albuterol 108 (90 Base) MCG/ACT Aero Soln inhaler, INHALE 2 PUFFS BY MOUTH EVERY 4 HOURS NEEDED,Disp: , Rfl: Azelastine HCl 137 MCG/SPRAY Solution nasal spray, USE 2 SPRAYS IN EACH NOSTRIL TWICE DAILY, NEED TO USE REGULARLY FOR BENEFIT, Disp: , Rfl: benzonatate 200 MG capsule, TAKE 1 CAPSULE BY MOUTH EVERY 8 HOURS NEEDED FOR COUGH, Disp: , Rfl: celecoxib 200 MG capsule, Take 200 mg by mouth daily., Disp: , Rfl: Denosumab (PROLIA SC), Refills(s) 0, Disp: , Rfl: doxycycline monohydrate 100 MG tablet, Take 100 mg by mouth 2 times daily., Disp: , Rfl: faMOTIdine 20 MG tablet, Take 20 mg by mouth at bedtime., Disp: , Rfl: levothyroxine 137 MCG tablet, Take 137 mcg by mouth daily., Disp: , Rfl: omeprazole [address] capsule, TAKE 1 CAPSULE BY MOUTH EVERY MORNING *CALL OFFICE TO SCHEDULE FOLLOW UP*, Disp: , Rfl: Ozempic, 1 MG/DOSE, 4 MG/3ML Solution Pen-injector, INJECT 1MG SUBCUTANEOUSLY ONCE WEEKLY, Disp: , Rfl: Probiotic Product (Align) capsule, TAKE 1 CAPSULE DAILY AFTER COMPLETING ANTIBIOTICS COURSE, Disp: , Rfl: triamcinolone 0.1 % Ointment ointment, APPLY TO AFFECTED AREAS OF RASH TWICE DAILY NEEDED FOR 30DAYS, Disp: , Rfl: Upadacitinib (RINVOQ PO), Take by mouth., Disp: , Rfl: Wixela Inhub 250-50 MCG/ACT Aerosol Powder, breath activated inhaler, INHALE 1 PUFF INTO LUNGS TWICE DAILY. USE REGULARLY FOR BENEFIT. RINSE MOUTH AFTER USE, Disp: , Rfl: zafirlukast 20 MG tablet, Take 20 mg by mouth 2 times daily., Disp: , Rfl: Allergies: She is allergic to keflex [cephalexin] and penicillins. Y N Are you allergic to any metals? [] [x] If yes, what metals: Review of Systems System Y N Symptoms Constitutional [] [x] Weight Loss [] [x] Weight Gain [] [x] Chronic Fever [] [x] Insomnia Eyes [] [x] Resent Vision Change [] [x] Cataracts [] [x] Glaucoma [] [x] Any Hx of Metal Fragments in the Eye ENT [] [x] Loss of hearing [] [x] Hearing Aids [x] [] Seasonal Allergies [] [x] Dental Issues Cardiovascular [] [x] Chest Pain [] [x] Angina [] [x] Stent [] [x] Hypertension [] [x] Heart Murmur [] [x] Irregular Pulse [] [x] Pacemaker [] [x] Palpitations [] [x] High cholesterol Respiratory [] [x] Wheezing [] [x] Shortness of Breath [] [x] Pneumonia [] [x] Bronchitis [] [x] Sleep Apnea [] [x] COPD [] [x] Date/ LOC of last CXR: Gastrointestinal [x] [] Heartburn [] [x] Indigestion [] [x] Constipation [] [x] Ulcer [] [x] GI Stomach Bleed [] [x] Diarrhea [] [x] Colon Cancer [x] [] Acid Reflux [] [x] Blood in Stools Musculoskeletal [x] [] Arthritis [] [x] Muscle Weakness [x] [x] Joint Pain [] [x] Back Pain [] [x] Fibromyalgia [] [x] Bone Infection [] [x] Swelling - Multiple Joints [] [x] Reflex Sympathetic Dystrophy Skin [] [x] Chronic Rash [] [x] Ulcers [x] [] Eczema [] [x] Psoriasis [] [x] Skin Cancer [] [x] Melanoma Neurologic [] [x] Numbness [] [x] Weakness or loss of sensation in arms or legs [] [x] Leg Pain / Sciatica [] [x] Headaches [] [x] Loss of bowel or bladder control Psychiatric [x] [] Anxiety [] [x] Claustrophobia [] [x] Other Psychiatric Problems Hematologic [x] [] Easy Bruising [] [x] Easy Bleeding [] [x] Blood Transfusion Date: Endocrine [x] [x] Hypothyroid [] [x] Hyperthyroid [] [x] Hot Flashes [] [x] Hormone Replacement [x] [] Prednisone Use Does pt have dentures? no * Puja Deluca MD - 01/11/2022 10:10 AM EDT HPI: Patient is here today to be evaluated for right knee pain. She is a pleasant 61 y.o. female. She is here today as a referral from Dr. Dunbar. Primary complaint is pain and discomfort. She has experienced a progressive decline in physical function and quality of life secondary to the discomfort in the right knee. She is status post a medial partial knee arthroplasty in 2009. She reports she was doing well until Jul, 2021 when she noticed her alignment and gait had changed. She was recently worked up by Dr. Dunbar at which time, it was discovered that she had a failed medial partial knee arthroplasty. The more she is on it, the more it hurts. She feels unpredictable with her ambul ation and therefore has a fear of falling. She is here today to discuss surgical interventions. Nikole is a 6/10 upon exam today. PHYSICAL EXAM: This is an alert, oriented, and age-appropriate female. She is in no distress. Pleasant and cooperative. EXTREMITIES: The upper extremities have no gross deformities. Normal stability.Skin Intact. 5/5 motor. Intact sensation. Normal neurovascular status. Normal coordination. The lower extremities have no gross deformities. Normal stability. Skin Intact. 5/5 motor. Intact sensation. Normal neurovascular status. Normal coordination. Range of motion upon exam today is 5 degrees of hyperextension and 110 degrees of flexion. Partially correctable valgus alignment. Crepitus throughout the arc of motion. Painful range of motion. Full motion of hip. No pain. No impingement. No instability. Contralateral leg has normal alignment. Full motion. No pain. No impingement. No instability. IMAGING: Plain film radiographs were reviewed. Films demonstrate medial arthroplasty in place, partially dislocated and failed on lateral view, valgus alignment, possible incompetent MCL, severe surrounding compartmental arthritis. 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 2.) Diabetes, recent A1C of 6.4 as reported by patient. PLAN: We have discussed in great detail the nature of the diagnosis, the natural history and expected progression which is likely worsening pain, worsening instability with risks of falls, and potentially additional joint and or bone wear. We have discussed the options for treatment including both conservative and operative treatments. We have discussed the risks, benefits, and alternatives to each treatment. Carolina understands that the potential benefits are reduced pain, improved stability and improved function. Carolina understands the complex nature of revision surgery and that the elevatedmajor life or limb threatening risks that include, but are not limited to: bleeding, infection, neurovascular injury including foot drop or paralysis of 5%, dislocation, component failure, implant loosening, ligament or tendon disruption, fracture, stiffness, chronic pain, chronic disability, need for further surgery, blood clots in the extremities or lungs, stroke, heart attack, loss of limb, and ultimately loss of life. In particular the patient understands the increased and major risks of revision surgery such as matilde-prosthetic fracture, infection, component failure or loosening, nerve injury, blood vessel injury, loss of leg or life. They understand revision surgery may take longer andmay require more extensive exposure and potentially osteotomies and that this may lead to additional morbidity or mortality. Despite these risks, the patient would like to proceed with surgical planning for right knee revision conversion from medial partial to total arthroplasty. Today, we will initiate the pre-surgical process including nasal MRSA screening, scheduling an appointment for [facility] and the potential surgical date, and reviewing and signing the consent forms. We discussed her diagnosis of diabetes and the elevated major risks of diabetes in relation with a good outcome following a total knee arthroplasty. I have explained my reasoning behind my recommendation for controled diabetes. She is in agreement with my recommendation in order to receive the bestpossible outcomes and lowest risks for complications. Carolina understands that I will require a A1C lab recheck prior to surgical intervention. I have reviewed the findings of my clinical staff below and agree with their assessment. Vitals: 01/11/22 1018 Temp: 98.5 degrees F (36.9 degrees C) TempSrc: Temporal Weight: 78.5 kg (173 lb) Height: 1.499 m (4' 11 ) Pain Presence of Pain: complains of pain/discomfort Pain Location: knee, right Select Pain Scale: DVPRS (Defense and Veterans Pain Rating Scale) (Adult- Cognitively Intact) Pain Location: knee, right Select Pain Scale: DVPRS (Defense and Veterans Pain Rating Scale) (Adult- Cognitively Intact) Recent Labs No results found for: CRP No results found for: SEDRATE No results found for: WBC, WBCCOUNT, WBCFETAL, HGB, HCT, PLATELET, MCV No past medical history on file. Past Surgical History: Procedure Laterality Date ARTHROPLASTY KNEE TOTAL Bilateral partial CHOLECYSTECTOMY FOOT SURGERY Bilateral corrective surgery HYSTERECTOMY REMOVAL CATARACT (PEM) Bilateral History reviewed. No pertinent family history. Social History Socioeconomic History Marital status: Tobacco Use Smoking status: Never Smoker Smokeless tobacco: Never Used Substance and Sexual Activity Alcohol use: Yes Comment: ocassional Drug use: Never Current Outpatient Medications: albuterol 108 (90 Base) MCG/ACT Aero Soln inhaler, INHALE 2 PUFFS BY MOUTH EVERY 4 HOURS NEEDED,Disp: , Rfl: Azelastine HCl 137 MCG/SPRAY Solution nasal spray, USE 2 SPRAYS IN EACH NOSTRIL TWICE DAILY, NEED TO USE REGULARLY FOR BENEFIT, Disp: , Rfl: benzonatate 200 MG capsule, TAKE 1 CAPSULE BY MOUTH EVERY 8 HOURS NEEDED FOR COUGH, Disp: , Rfl: celecoxib 200 MG capsule, Take 200 mg by mouth daily., Disp: , Rfl: Denosumab (PROLIA SC), Refills(s) 0, Disp: , Rfl: doxycycline monohydrate 100 MG tablet, Take 100 mg by mouth 2 times daily., Disp: , Rfl: faMOTIdine 20 MG tablet, Take 20 mg by mouth at bedtime., Disp: , Rfl: levothyroxine 137 MCG tablet, Take 137 mcg by mouth daily., Disp: , Rfl: omeprazole [address] capsule, TAKE 1 CAPSULE BY MOUTH EVERY MORNING *CALL OFFICE TO SCHEDULE FOLLOW UP*, Disp: , Rfl: Ozempic, 1 MG/DOSE, 4 MG/3ML Solution Pen-injector, INJECT 1MG SUBCUTANEOUSLY ONCE WEEKLY, Disp: , Rfl: Probiotic Product (Align) capsule, TAKE 1 CAPSULE DAILY AFTER COMPLETING ANTIBIOTICS COURSE, Disp: , Rfl: triamcinolone 0.1 % Ointment ointment, APPLY TO AFFECTED AREAS OF RASH TWICE DAILY NEEDED FOR 30DAYS, Disp: , Rfl: Upadacitinib (RINVOQ PO), Take by mouth., Disp: , Rfl: Wixela Inhub 250-50 MCG/ACT Aerosol Powder, breath activated inhaler, INHALE 1 PUFF INTO LUNGS TWICE DAILY. USE REGULARLY FOR BENEFIT. RINSE MOUTH AFTER USE, Disp: , Rfl: zafirlukast 20 MG tablet, Take 20 mg by mouth 2 times daily., Disp: , Rfl: Allergies Allergen Reactions Keflex [Cephalexin] Hives Penicillins Hives documented in this [facility]06-17-2022 Evaluation note* Encounter Date Diagnosis Assessment Notes Treatment Notes Treatment Clinical Notes Nov, Cough (ICD-10 - R05.9) Advised patient that rapid COVID antigen test and Influenza A/B test was negative today. No acute lung process noted today on physical exam. Will send in rx of Tessalon Perles, Cetirizine, and Albuterol Inhaler to use to help with symptoms. Advised to continue antibiotic and steroid given by PCP. Supportive care as directed, increase fluids and rest, Tylenol/Motrin as directed, cool mist humidifier, throat lozenges. Discussed infection control practices such as good hand washing and mask wearing. Patient to follow up with PCP Saturday if symptoms persist or worsen despite treatment. Immediate eval for SOB, difficulty, chest pain, fevers that do not break with antipyretic or any other concerning symptoms as reviewed on patient education handout. Patient verbalizes understanding and is agreeable to treatment plan. Patient left in stable condition [employer] Other 05-04-2022 Evaluation note* Encounter Date Diagnosis Assessment Notes Treatment Notes Treatment Clinical Notes October, Type 2 diabetes mellitus with hyperglycemia, without long-term current use of insulin (ICD-10 - E11.65) Managing type 2 diabetes material was published 1. Controlled, a Type 2 diabetes with A1c of 5.3% 2. Blood glucose levels stable. No changes. 3. Patient is alert, oriented and receptive to making changes or counseling. Notes: Seen for an assessment of current glucose pattern, changes in treatment plan, counseling and coordination of care related to diabetes, risks, and benefits of treatment, medications, side effects. Given handouts to reinforce concepts reviewed during counseling, see scanned notes. TOPICS REVIEWED: 1. Time was spent reviewing: a. Basic concepts of diabetes, progressive beta cell , concepts of basal/bolus/correc tive insulin requirements. b. Nutrition: Concepts of healthy diet, encouraged to decrease saturated fat in diet and increase non-starchy vegetables and fruits in diet. BMI: Pt. needs to select one small change to decrease caloric intake or increase physical activity to help decrease weight. c. Correct treatment of hypoglycemia, carry a glucose source at all times on your person, in vehicles, and at bedside. Can use glucose tablets/4, four ounces of pop or juice equal to 15 G of carbohydrate. Blood glucose should be 100 mg/dl or higher when driving. d. ADA glucose goals for age and medical complexity reviewed e. Patient questions addressed 2. Activity/exercise: Encouraged to start any form of physical activity. Start low level and increase slowly to a minimal goal of 150 minutes/week. Limit activity to what is allowed by other issues such as cardiac, pulmonary or orthopedic restrictions. 3. Standards of care: Reminded to have an annual dilated eye exam, A1C every 3 months, urine testing for microalbumin once/year, check feet daily and report any cuts or sores that do not appear to be healing. 4. Meter: Plan to check blood glucose: Please check blood glucose levels 1 time/day. Back to back meals reveal effectiveness of bolus dosing. 5. [facility]. Contact office if any issues or concerns with patterns of hypoglycemia, hyperglycemia, or diabetes medication issues. 6. Prescriptions: Ozempic sent to [facility]. October, Hyperlipidemia, unspecified hyperlipidemia type (ICD-10 - E78.5) High cholesterol material was published 11/18 ldl 129- above target discuss with pcp consider starting statin per ada guidelines October, Dietary counseling and surveillance (ICD-10 - Z71.3) Eat well, exercise well, be well: dietary and fitness guidelines material was published see above October, BMI 35.0-35.9,adult (ICD-10 - Z68.35) Setting weight-loss goals material was published [employer] Other 04-15-2022 Hospital Discharge instructions Patient Education 10/13/2021 11:34:34 Nausea, Adult Nausea, Adult Nausea is the feeling that you have an upset stomach or that you are about to vomit. Nausea on its own is not usually a serious concern, but it may be an early sign of a more serious medical problem.As nausea gets worse, it can lead to vomiting. If vomiting develops, or if you are not able to drink enough fluids, you are at risk of becoming dehydrated. Dehydration can make you tired and thirsty,cause you to have a dry mouth, and decrease how often you urinate. Older adults and people with other diseases or a weak disease-fighting system (immune system) are at higher risk for dehydration. The main goals of treating your nausea are: To relieve your nausea. To limit repeated nausea episodes. To prevent vomiting and dehydration. Follow these instructions at home: Watch your symptoms for any changes. Tell your health care provider about them. Follow these instructions as told by your health care provider. Eating and drinking Take an oral rehydration solution (ORS). This is a drink that is sold at pharmacies and retail stores. Drink clear fluids slowly and in small amounts as you are able. Clear fluids include water, ice chips, low-calorie sports drinks, and fruit juice that has water added (diluted fruit juice). Eat bland, wxwp-se-ctmqzx foods in small amounts as you are able. These foods include bananas, applesauce, rice, lean meats, toast, and crackers. Avoid drinking fluids that contain a lot of sugar or caffeine, such as energy drinks, sports drinks, and soda. Avoid alcohol. Avoid spicy or fatty foods. General instructions Take duwu-err-iufxlfu and prescription medicines only as told by your health care provider. Rest at home while you recover. Drink enough fluid to keep your urine pale yellow. Breathe slowly and deeply when you feel nauseous. Avoid smelling things that have strong odors. Wash your hands often using soap and water. If soap and water are not available, use hand benzene worker. Make sure that all people in your household wash their hands well and often. Keep all follow-up visits as told by your health care provider. This is important. Contact a health care provider if: Your nausea gets worse. Your nausea does not go away after two days. You vomit. You cannot drink fluids without vomiting. You have any of the following: ?New symptoms. ?A fever. ?A headache. ?Muscle cramps. ?A rash. ?Pain while urinating. You feel light-headed or dizzy. Get help right away if: You have pain in your chest, neck, arm, or jaw. You feel extremely weak or you faint. You have vomit that is bright red or looks like coffee grounds. You have bloody or black stools or stools that look like tar. You have a severe headache, a stiff neck, or both. You have severe pain, cramping, or bloating in your abdomen. You have difficulty breathing or are breathing very quickly. Your heart is beating very quickly. Your skin feels cold and clammy. You feel confused. You have signs of dehydration, such as: ?Dark urine, very little urine, or no urine. ?Cracked lips. ?Dry mouth. ?Sunken eyes. ?Sleepiness. ?Weakness. These symptoms may represent a serious problem that is an emergency. Do not wait to see if the symptoms will go away. Get medical help right away. Call your local emergency services (911 in the [place] Do not drive yourself to the hospital. Summary Nausea is the feeling that you have an upset stomach or that you are about to vomit. Nausea on its own is not usually a serious concern, but it may be an early sign of a more serious medical problem. If vomiting develops, or if you are not able to drink enough fluids, you are at risk of becoming dehydrated. Follow recommendations for eating and drinking and take zcdw-att-pitxfxf and prescription medicinesonly as told by your health care provider. Contact a health care provider right away if your symptoms worsen or you have new symptoms. Keep all follow-up visits as told by your health care provider. This is important. This information is not intended to replace advice given to you by your health care provider. Make sure you discuss any questions you have with your health care provider. Document Released: 07/25/2005 Document Revised: 11/25/2018 Document Reviewed: 11/25/2018 [employer] Follow Up Care 09/14/2021 16:00:30 With:Teodora Ott CNP Address: When:1 month [facility] 04-06-2022 Hospital Discharge instructions Follow Up Care 10/04/2021 16:19:35 With:Haim Do Address: [address] [place] [place] [address] [phone] Fax Business (1) When: Unknown Comments:cbc, cmp, iron studies in 6mofollow-up in 6mo [facility]03-21-2022 Hospital Discharge instructions Follow Up Care 09/18/2021 12:56:54 With:Haim Do Address: [address] [place] [address] [place] [address] [phone] Fax Business (1) When: Unknown Comments:soon check iron studies, vitamin B12, esr, folate erythropoietin, reticulocyte count, SPEP, serum free light chains, serum immunofixation. Also check CBC and CMP soon. check cbc prior to f/u in 6 months. [facility]02-28-2022 Evaluation note* Encounter Date Diagnosis Assessment Notes Treatment Notes Treatment Clinical Notes Aug, Injury of left shoulder, initial encounter (ICD-10 - S49.92XA) Use RICE therapy as discussed: Rest, Ice Compression, Elevate. Apply ice to affected area 3-4 times daily (Do not place ice source directly on skin, must cover with towel-like material). Take medication as directed. Rest and elevate sore extremity as much as possible. Do not take OTC medication pain relievers if prescription of medication given in office today. Contact ortho office for follow up and wear sling as instructed. Aug, Injury of right wrist, initial encounter (ICD-10 - S69.91XA) [employer] Other 10-06-2021 Evaluation note* Encounter Date Diagnosis Assessment Notes Treatment Notes Treatment Clinical Notes Mar, Dietary counseling and surveillance (ICD-10 - Z71.3) Learning About Healthy Weight material was published to portal Mar, Type 2 diabetes mellitus with hyperglycemia, without long-term current use of insulin (ICD-10 - E11.65) Mar, Hyperlipidemia (ICD-10 - E78.5) Learning About High Cholesterol material was published to portal Mar, Obesity (BMI 35.0-39.9 without comorbidity) (ICD-10 - E66.9) Mar, Hyperlipidemia, unspecified hyperlipidemia type (ICD-10 - E78.5) Mar, Neuropathy (ICD-10 - G62.9) Mar, Other Learning About Vitamin D material was published to portal High Blood Pressure: Care Instructions material was published to portal ASSESSMENT: 1. controlled Type 2 diabetes with A1c of 6.5 % 2. Blood glucose level was good today at 129 3. Patient is alert, oriented and receptive to making changes or counseling. Notes: Seen for an assessment of current glucose pattern, changes in treatment plan, counseling and coordination of care related to diabetes, risks, and benefits of treatment, medications, side effects. Given handouts to reinforce concepts reviewed during counseling, see scanned notes. TOPICS REVIEWED: 1. Time was spent reviewing: a. Basic concepts of diabetes, progressive beta cell , concepts of basal/bolus/correc tive insulin requirements. Basal: The goal is fasting blood glucose of 90-130mg. IF fasting blood glucose starts to run under 100mg 3x's/ week, decrease dose by 10%. Bolus: The goal is to hold the blood glucose level steady meal to meal. If pt. is going to have increased physical activity after a meal, decrease the schedule meal dose prior to the activity by 30-50%. If pt. skips a meal do not take this dose. Correction: The goal is to correct an elevated glucose back into the 100-150mg range b. Nutrition: Concepts of healthy diet, encouraged to decrease saturated fat in diet and increase non-starchy vegetables and fruits in diet. BMI: Pt. needs to select one small change to decrease caloric intake or increase physical activity to help decrease weight. c. Correct treatment of hypoglycemia, carry a glucose source at all times on your person, in vehicles, and at bedside. Can use glucose tablets/4, four ounces of pop or juice equal to 15 G of carbohydrate. Blood glucose should be 100 mg/dl or higher when driving. d. ADA glucose goals for age and medical complexity reviewed e. Patient questions addressed 2. Activity/exercise: Encouraged to start any form of physical activity. Start low level and increase slowly to a minimal goal of 150 minutes/week. Limit activity to what is allowed by other issues such as cardiac, pulmonary or orthopedic restrictions. 3. Standards of care: Reminded to have an annual dilated eye exam, A1C every 3 months, urine testing for microalbumin once/year, check feet daily and report any cuts or sores that do not appear to be healing. 4. Meter: Plan to check blood glucose: Please check blood glucose levels 4 times/day. Back to back meals reveal effectiveness of bolus dosing. The blood glucose data is used to determine insulin doses and confirm symptoms for hypoglycemia and hyperglcyemia. 5. [facility]. Contact office if any issues or concerns with patterns of hypoglycemia, hyperglycemia, or diabetes medication issues. 6. Prescriptions: Ozempic refilled [employer] Other 12-01-2020 History general Narrative - Reported* Type Description Date Medical History allergies Medical History asthma Medical History diverticulitis Medical History Diabetes Medical History neuropathy Medical History RA Medical History Covid 05/2020 Medical History Blood clots Medical History pulmonary embolism both lungs Surgical History knee surgery (both) Surgical History hysterectomy Surgical History gall bladder Surgical History left tendon tibial transfer Surgical History Foot Surgery bilateral Hospitalization History see surgical hx [employer] Other 12-01-2020 History general Narrative - Reported* Type Description Date Medical History allergies Medical History asthma Medical History diverticulitis Medical History Diabetes Medical History neuropathy Medical History RA Medical History Covid 05/2020 Medical History Blood clots Medical History pulmonary embolism both lungs Surgical History knee surgery (both) Surgical History hysterectomy Surgical History gall bladder Surgical History left tendon tibial transfer Surgical History Foot Surgery bilateral Surgical History cataracts, bilaterally 05/2021 Hospitalization History see surgical hx [employer] Other 12-01-2020 History general Narrative - Reported* Type Description Date Medical History allergies Medical History asthma Medical History diverticulitis Medical History Diabetes Medical History neuropathy Medical History RA Medical History Covid 05/2020 Medical History Blood clots Medical History pulmonary embolism both lungs Surgical History knee surgery (both) Surgical History hysterectomy Surgical History gall bladder Surgical History left tendon tibial transfer Surgical History Foot Surgery bilateral Surgical History cataracts, bilaterally 05/2021 Surgical History knee replacement 12/2021 Hospitalization History see surgical hx [employer] Other 12-01-2020 History general Narrative - Reported* Type Description Date Medical History allergies Medical History asthma Medical History diverticulitis Medical History Diabetes Medical History neuropathy Medical History RA Medical History Covid 05/2020 Medical History Blood clots Medical History pulmonary embolism both lungs Surgical History knee surgery (both) Surgical History hysterectomy Surgical History gall bladder Surgical History left tendon tibial transfer Surgical History Foot Surgery bilateral Surgical History cataracts, bilaterally 05/2021 Surgical History knee replacement 12/2021 Surgical History Throat 05/2022 Hospitalization History see surgical hx [employer] Other 12-01-2020 History general Narrative - Reported* Type Description Date Medical History allergies Medical History asthma Medical History diverticulitis Medical History Diabetes Medical History neuropathy Medical History RA Medical History Covid 05/2020 Medical History Blood clots Medical History pulmonary embolism both lungs Surgical History knee surgery (both) Surgical History hysterectomy Surgical History gall bladder Surgical History left tendon tibial transfer Surgical History Foot Surgery bilateral Surgical History cataracts, bilaterally 05/2021 Surgical History knee replacement 12/2021 Surgical History Throat 05/2022 Hospitalization History see surgical hx Hospitalization History [facility] 08/2022 [employer] Other 06-10-2016 Miscellaneous Notes* Telephone Encounter - Janet Bourgeois Ma - 12/09/2015 11:29 AM EDT Attempted to call pt. Left vm to call office back. * Telephone Encounter - Ashlee Regan LPN - 11/25/2015 1:16 PM EDT Left message on machine to call the office. * Telephone Encounter - Matthew Marshall - 11/25/2015 12:58 PM EDT Please, tell pt test in August was normal except for mild elevation on the liver test I want her to redo test, will include FreeT3. If low, may benefit by using [place] Thyroid (she took disecated thyroid in 2003). Order entered. Component Latest Ref Rng 08/26/15 TSH 0.400 - 5.500 uU/mL 0.7(L) Free T4 0.7 - 1.8 ng/dL 1.7 * Telephone Encounter - Shila Franco - 11/24/2015 2:07 PM EDT Patient called states that she is gaining weight and not losing not matter what type of diet she blas. Patient feels her dosage of medication may be off. Patient aslo would like to go over lab results from 08/16. Patient states that she did not receive a copy of the lab report. Please advise. [facility] Future Appointments Appointment Date:10/13/2021 11:00:00 AM Scheduled Provider:Teodora Ott CNP Location[facility] Appointment Type:[facility] Follow Up Appointment Date:04/04/2022 02:45:00 PM Scheduled Provider:Haim Do DO Location:.ONCOLOGY Appointment Type:ONC Office Visit 15 (FT) Diagnostic Tests Pending * LAVERNE and PE, Serum 10/04/21 * Free K+L Lt Chains,Qn,S 10/04/21 * Methylmalonic Acid 10/04/21 * Erythropoietin Level 10/04/21 Future Scheduled Tests Laboratory* Fecal WBC Lactoferrin 09/14/21 * Giardia lamblia, Direct Detection EIA 09/14/21 * O & P Exam, Routine 09/14/21 * Clostridium difficile by PCR 09/14/21 * Enteric Panel by PCR 09/14/21 * CBC w/ Auto Diff 04/05/22 [facility] Future Appointments Appointment Date:10/13/2021 11:00:00 AM Scheduled Provider:Teodora Ott CNP Location:[facility] Appointment Type:[facility] Follow Up Appointment Date:04/04/2022 02:45:00 PM Scheduled Provider:Haim Do DO Location:FT.ONCOLOGY Appointment Type:ONC Office Visit 15 (FT) Diagnostic Tests Pending * Enteric Panel by PCR 10/07/21 * O & P Exam, Routine 10/07/21 * Giardia lamblia, Direct Detection EIA 10/07/21 Future Scheduled Tests Laboratory* CBC w/ Auto Diff 04/05/22 [facility] Future Appointments Appointment Date:11/23/2021 04:00:00 PM Scheduled Provider:Teodora Ott CNP Location:[facility] Appointment Type:[facility] Follow Up Appointment Date:04/04/2022 02:45:00 PM Scheduled Provider:Haim Do DO Location:FT.ONCOLOGY Appointment Type:ONC Office Visit 15 (FT) Future Scheduled Tests Laboratory* CBC w/ Auto Diff 04/05/22 Radiology* NM Gastric Emptying Study 10/13/21 [facility] Evaluation + Plan note Future Appointments Appointment Date:04/04/2022 02:45:00 PM Scheduled Provider:Haim Do DO Location:FT.ONCOLOGY Appointment Type:ONC Office Visit 15 (FT) Future Scheduled Tests Laboratory* CBC w/ Auto Diff 04/05/22 Radiology* NM Gastric Emptying Study 10/13/21 [facility] Evaluation + Plan note Future Appointments Appointment Date:05/17/2022 03:30:00 PM Scheduled Provider:Lorene Gordillo Location:FT.ONCOLOGY Appointment Type:ONC Office Visit 15 (FT) Appointment Date:05/21/2022 08:00:00 AM Scheduled Provider: Location:[facility] Appointment Type:Surgery FT Future Scheduled Tests Laboratory* CBC w/ Auto Diff 04/05/22 Radiology* NM Gastric Emptying Study 10/13/21 [facility] Evaluation + Plan note Future Appointments Appointment Date:05/21/2022 08:00:00 AM Scheduled Provider: Location:[facility] Appointment Type:Surgery FT Appointment Date:05/21/2022 08:30:00 AM Scheduled Provider:Lorene Gordillo [facility] Office Visit 15 (FT) Future Scheduled Tests Laboratory* CBC w/ Auto Diff 04/05/22 Radiology* NM Gastric Emptying Study 10/13/21 [facility] Future Appointments Appointment Date:11/21/2022 03:00:00 PM Scheduled Provider:Haim Do DO [facility] Office Visit 15 (FT) Future Scheduled Tests Laboratory* CBC w/ Auto Diff 04/05/22 * CBC w/ Auto Diff 11/21/22 * Comprehensive Metabolic Panel 11/21/22 * Ferritin 11/21/22 * Iron Level 11/21/22 * Iron Percent Saturation 11/21/22 Radiology* NM Gastric Emptying Study 10/13/21 [facility] Future Appointments Appointment Date:06/21/2022 08:00:00 AM Scheduled Provider: [facility] Type:NM Myocard Spect Multi Rest/Stress-Res Appointment Date:06/21/2022 09:00:00 AM Scheduled Provider: [facility] Type:NM Myocard Spect Multi Rest/Stress - R Appointment Date:06/21/2022 09:30:00 AM Scheduled Provider: [facility] Type:NM Myocard Spect Multi Rest/Stress-Str Appointment Date:06/21/2022 10:30:00 AM Scheduled Provider: [facility] App[facility] Type:NM Myocar Spect Multi Rest/Stress - St Appointment Date:11/21/2022 03:00:00 PM Scheduled Provider:Haim Do DO Location:.ONCOLOGY Appointment Type:ONC Office Visit 15 (FT) Future Scheduled Tests Laboratory* CBC w/ Auto Diff 04/05/22 * CBC w/ Auto Diff 11/21/22 * Comprehensive Metabolic Panel 11/21/22 * Ferritin 11/21/22 * Iron Level 11/21/22 * Iron Percent Saturation 11/21/22 Radiology* NM Myocardial Spect Rest/Stress 1 Day 06/21/22 * NM Gastric Emptying Study 10/13/21 [facility] Future Appointments Appointment Date:07/24/2022 03:30:00 PM Scheduled Provider:Cathleen SLOAN CNP [facility] Type:Cardiology Follow Up (FT) Appointment Date:11/21/2022 03:00:00 PM Scheduled Provider:Haim Do DO [facility] Office Visit 15 (FT) Future Scheduled Tests Laboratory* CBC w/ Auto Diff 04/05/22 * CBC w/ Auto Diff 11/21/22 * Comprehensive Metabolic Panel 11/21/22 * Ferritin 11/21/22 * Iron Level 11/21/22 * Iron Percent Saturation 11/21/22 Radiology* NM Gastric Emptying Study 10/13/21 [facility] Future Appointments Appointment Date:12/12/2022 03:45:00 PM Scheduled Provider:Haim Do DO [facility]ONC Office Visit 15 (FT) Appointment Date:12/27/2022 08:20:00 AM Scheduled [facility]: [facility] Appointment Date:01/14/2023 04:00:00 PM Scheduled Provider:Silvestre Benavides MD [facility] Open Appointment Date:04/05/2023 01:40:00 PM Scheduled Provider:Teodora Ott CNP Location:[facility] Appointment Type: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 documented in this encounter [facility] note* Diagnosis Right knee pain, unspecified chronicity- Primary documented in this encounter [facility] note* Diagnosis Acute postoperative pain of right knee- Primary 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, initial encounter documented in this encounter [facility] note* Diagnosis Hx of total knee arthroplasty, right- Primary documented in this encounter [facility] noteNo assessment information [facility] Work Phone: Evaluation note* Diagnosis Rheumatoid arthritis involving multiple sites with positive rheumatoid factor (HCC)- Primary Cyclic citrullinated peptide (CCP) antibody positive Elevated LFTs Other abnormal blood chemistry Anemia of chronic disease Anemia of other chronic disease Elevated sed rate Elevated sedimentation rate Elevated C-reactive protein (CRP) Vitamin D deficiency Unspecified vitamin D deficiency Rheumatoid arthritis of multiple sites without rheumatoid factor (HCC) Rheumatoid arthritis Rheumatoid factor positive Other and unspecified nonspecific immunological findings documented in this encounter [facility] note* Diagnosis Hx of total knee arthroplasty, right- Primary documented in this encounter [facility] note* Diagnosis Rheumatoid arthritis of multiple sites without rheumatoid factor (HCC)- Primary Rheumatoid arthritis documented in this encounter [facility] noteNo InformationNort Vacation Your Way Other Evaluation note* Diagnosis Bilateral posterior capsular opacification- Primary Unspecified after-cataract documented in this encounter [facility] Narrative No data available for this section [facility] No data available for this section [facility] No data available for this section [facility] Reason for visit Narrative* Auth/Cert Specialty Diagnoses / Procedures Referred By Brittany rahman Referred To Contact Diagnoses 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, initial encounter 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, initial encounter [X33.270H] Procedures MT TOTAL KNEE ARTHROPLASTY ARTHROPLASTY KNEE TOTAL Puja Deluca MD [address] [place] [address] Referral ID Status Reason Start Date Expiration Date Visits Re quested Visits Authorized [id number] 01/12/2022 1 1 [employer] Discharge Instructions * Isatu Stoner CNP - 05/16/2017 Please refer to the office surgery packet Sleep Disorder Risk, Home care instructions: During your stay at the hospital, we identified you at risk of having a sleep disorder. Because of these initial findings, we recommend that you learn more about sleep disorders, talk to your primarycare doctor and have further testing, such as a sleep study. Obstructive sleep apnea (LAISHA) is the most common type of sleep disorder. With LAISHA, a person has short periods where they stop breathing while sleeping. This condition can be treated. The most common test to diagnose a sleep disorder is a sleep study. During a sleep study, you go toa sleep center in the evening and you are monitored while you sleep. The most common treatment for LAISHA is using equipment that keeps your airway open while you sleep. If you need treatment, the doctor will explain this to you and you will be instructed on how to use the equipment. With treatment, most people feel better and have more energy within a few days. Treatment also helps prevent other medical conditions. Follow-up: We recommend you have further testing. Make an appointment with your primary care doctorto discuss getting tested for a sleep disorder. Your doctor can answer any other questions and helpget further testing, if needed. in this encounter Instructions * Patient Instructions - Rosa Lazo DO - 05/13/2017 10:38 AM EST Formatting of this note may be different from the original. If your surgery date changes or you change your surgery date, please call us at [phone] Preoperative Medication Instructions In preparation for surgery please continue all of your current medications with the following changes: Carolina Gomez Home Medication Instructions Prior to Surgery GUILLERMO:[id number] Printed on:05/13/17 1039 Medication Information Take last dose on Take the morning of surgery Comment(s) calcium carbonate (OS-PILAR) 600 mg (1,500 mg) tablet Take 600 mg by mouth 2 (two) times a day with meals NO celecoxib (CELEBREX) 200 MG capsule Take 200 mg by mouth 2 (two) times a day NO cholestyramine (QUESTRAN) 4 gram powder Take 4 g by mouth every morning Reasons: Chronic Diarrhea. NO EPIPEN 2-PANCHITO 0.3 mg/0.3 mL AtIn USE ONLY DIRECTED FOR ALLERGIC REACTION, CALL 911 AND GO TO E.R. IF NEEDED fluticasone (FLONASE) 50 mcg/actuation nasal spray Instill 2 sprays into each nostril every morning . YES fluticasone-salmeterol (ADVAIR DISKUS) 250-50 mcg/dose diskus inhaler Inhale 1 puff 2 (two) times a day YES L.ACID/L.CASEI/B.BIF/B.LUPE/FOS (PROBIOTIC BLEND ORAL) Take by mouth every morning. NO levothyroxine (SYNTHROID, LEVOTHROID) 137 MCG tablet Take 137 mcg by mouth every morning. NO metFORMIN (GLUCOPHAGE) 500 MG tablet Take 500 mg by mouth every morning. NO multivitamin (multivitamin) per tablet Take 1 tablet by mouth every morning . NO omeprazole (PRILOSEC) 40 MG capsule Take 40 mg by mouth every morning. YES VENTOLIN HFA 90 mcg/actuation inhaler 2 puffs every 4 to 6 hours as needed. IF NEEDED zafirlukast (ACCOLATE) 20 MG tablet Take 20 mg by mouth 2 (two) times a day YES STOP Aspirin (and medications that contain aspirin, such as [place], Pepto- Bismol, Anacin), antiinflammatory medications such as Advil, Motrin, Ibuprofen, Naproxen, Aleve, [place], Diclofenac, Voltaren, Daypro, Etodolac, Ketoprofen, Piroxicam, Relafen, Nabumetone, etc. Also discontinue Vitamin C, Vitamin E, Hassell-3 Fatty Acid, Fish Oil or Lovaza, and all herbal medications. Take last dose on STOP NOW. Tylenol (acetaminophen) is acceptable, but be careful to follow the label directions and do not usewith other pain medications. It is acceptable to continue a Multivitamin, Magnesium, Potassium, Iron supplement, Vitamin D, Calcium, or Vitamin B if you were already taking them. On the morning of surgery, with as little water as possible, ONLY take the medications listed abovein the column Take the morning of surgery. If you are using Eye Drops or Inhalers, please bring them to the hospital. If you have sleep apnea and have a CPAP/BIPAP device, please bring it with you the day of surgery. in this encounter Assessments Diagnosis Preoperative testing - Prima ry Unspecified pre-operative examination Retained orthopedic hardware Pre-operative cardiovascular examination Type 2 diabetes mellitus wit hout complication, without long-term current use of insulin (HCC) Asthmatic bronchitis, unspec ified asthma severity, uncomplicated Gastroesophageal reflux dise ase without esophagitis Esophageal reflux Acquired hypothyroidism Unspecified hypothyroidism Nonspecific abnormal electro cardiogram (ECG) (EKG) Risk factors for obstructive sleep apnea Moderate obesity No contraindication to deep vein thrombosis (DVT) prophylaxis Diagnosis Nonspecific abnormal electro cardiogram (ECG) (EKG) Summary Purpose Family History No Family History Records FoundNo Family History Records FoundNo Family History Records FoundNo Family History Records FoundNo Family History Records FoundNo Family History Records Found No data available for this section No Family History Records FoundNo Family History Records FoundNo Family History Records FoundNo Family History Records Found Advance Directives No Advanced Directives Records FoundLatest Code Status on File Code Status Date Activated Date Inactivated Comments Full Code 01/23/2022 2:13 PM Advance Directive Response Recorded Date/ Time Advance Directives No April 27, 2017 8:20am Latest Code Status on File Code Status Date Activated Date Inactivated Comments Full Code 01/23/2022 2:13 PM Reason for Referral Specialty Diagnoses / Procedures Referred By Bernieac t Referred To Contact Diagnoses Rheumatoid arthritis of multiple sites without rheumatoid factor (HCC) Stevo Neff MD [address] [place] [address] Referral ID Status Reason Start Date Expiration Date Visits Re quested Visits Authorized [id number] Closed 1 1 Specialty Diagnoses / Procedures Referred By Bernieac t Referred To Contact Diagnoses Hx of total knee arthroplasty, right Procedures XR KNEE RIGHT 3 VIEWS Medardo Vuong, [employer] SUPERVISOR-VALIDATION SPECIALIST [address] [place] [address] Referral ID Status Reason Start Date Expiration Date V isits Requested Visits Authorized [id number] New Request 02/09/2022 03/06/2023 1 1 Specialty Diagnoses / Procedures Referred By Bernieac t Referred To Contact Physical Therapy Diagnoses Acute postoperative pain of right knee Medardo Vuong, [employer] SUPERVISOR-VALIDATION SPECIALIST [address] [place] [address] Referral ID Status Reason Start Date Expiration Date V isits Requested Visits Authorized [id number] New Request 01/23/2022 02/17/2023 1 1 Scheduling Instructions . Specialty Diagnoses / Procedures Referred By Contac t Referred To Contact Diagnoses Right knee pain, unspecified chronicity Procedures XR KNEE RIGHT 3 VIEWS XR KNEE RIGHT 4+ VIEWS Puja Deluca MD [address] [place] [id number] Referral ID Status Reason Start Date Expiration Date V isits Requested Visits Authorized [id number] New Request 01/11/2022 02/05/2023 1 1 Specialty Diagnoses / Procedures Referred By Contac t Referred To Contact Diagnoses Right knee pain, unspecified chronicity Procedures XR BONE LENGTH STUDY Puja Deluca MD [address] [place] [id number] Referral ID Status Reason Start Date Expiration Date V isits Requested Visits Authorized [id number] Pending Review 01/11/2022 02/05/2023 1 1 Chief Complaint and Reason for Visit Chief Complaint R05.3 Chief Complaint Dysuria Additional Source Comments Shante Delarosa DPM - 05/16/2017 12:22 PM Rosa Celestin, DO - 05/13/2017 10:48 AM Rosa Celestin, DO - 05/13/2017 10:48 AM EST H&P Notes (unrecognized sect ion and content) INTERVAL HISTORY AND PHYSICAL Patient Name: Carolina Gomez Admit Date: [id number] MR #: [id number] : 1960 The H&P has been reviewed and the patient has been examined. I concur with the findings of the H&P. There are no significant changes. It is appropriate to proceed with the planned procedure. Shante Delarosa DPM 05/16/2017 12:22 PM Formatting of this note may be different from the original. Assessment and Plan 1. Preoperative testing Preoperative medical risk stratification indicates that the patient is at acceptable risk for elective/low risk surgery-LEFT FOOT HARDWARE REMOVAL [facility] [place] [facility] [place] 05/16/17 pending laboratory/results of cardiac stress test. ECG 12 Lead 2. Retained orthopedic hardware The patient should discontinue any aspirin products, antiinflammatory drugs or herbal/supplement medications from now prior to surgery as outlined in the patient medication instruction sheet given to the patient today at preadmission testing. 3. Pre-operative cardiovascular examination This patient has no active cardiac conditions and would be considered at a low risk for a major adverse cardiac event (MACE) based on a revised cardiac risk index (RCRI) score of 0. This patient has an activity level greater than 4 METS and would be considered at acceptable cardiac risk based on the 2014 [place] [employer]/[place] [employer] (ACC/AHA) guideline on Perioperative Cardiovascular Evaluation and Management of Patients Undergoing Noncardiac Surgery. 4. Type 2 diabetes mellitus without complication, without long-term current use of insulin (HCC) Controlled on metformin discontinued today prior to surgery. 5. Asthmatic bronchitis, unspecified asthma severity, uncomplicated Controlled on Advair inhaler that she is a.m. day of surgery/as needed albuterol inhaler that she is a.m. day of surgery/Accolate take a.m. day of surgery. 6. Gastroesophageal reflux disease without esophagitis Controlled on omeprazole does take a.m. day of surgery. 7. Acquired hypothyroidism Controlled on levothyroxine discontinued today prior to surgery. 8. Nonspecific abnormal electrocardiogram (ECG) (EKG) Unfortunate no prior ECGs for comparison therefore will order NM Myocardial Perfusion Multiple SPECT prior to surgery. 9. Risk factors for obstructive sleep apnea The patient was noted to have risk factors for obstructive sleep apnea as noted on screening today in preadmission testing. This would place the patient at risk for postoperative respiratory compromise/hypoxia. Close respiratory monitoring and pulse oximetry monitoring should be instituted postoperatively. 10. Moderate obesity Body mass index is 39.99 kg/(m^2). 11. No contraindication to deep vein thrombosis (DVT) prophylaxis Deep venous thrombosis prophylaxis per primary service. Recommend: 2012 Antithrombotic therapy for VTE disease: Antithrombotic Therapy and Prevention of Thrombosis, 9th ed: [place] [employer] Evidence- Based Clinical Practice Guidelines. Chief Complaint Patient presents with Pre-operative Medical Risk Stratification History of Present Illness Carolina Gomez is a 56 y.o. female who presents for preoperative medical risk stratification consult at the request of Shante Delarosa DPM prior to LEFT FOOT HARDWARE REMOVAL [facility] [place] [facility] [place] 05/16/17. Pt had left foot surgery in 08/2016 (foot was rolling outward) and now that hardware that was placed then is moving and pointing outward and rubbing against her shoe. The patient describes his pain as mild moderate intensity, dull to sharp in character. The patient denies any chest pain or chest heaviness. In addition, the patient states that she is able to walk up a flight of steps without becoming short of breath. Please see below regarding status of active medical conditions and assessment and plan regarding details of preoperative medical risk stratification. Past Medical History: Diagnosis Date Arthritis Asthma Diabetes mellitus, type 2 (HCC) checks BS once a day, usually runs in the 's Diverticulosis DVT (deep venous thrombosis) (HCC) R lower leg Eczema GERD (gastroesophageal reflux disease) Hypothyroidism since age 24 Irritable bowel syndrome PONV (postoperative nausea and vomiting) Varicosities Past Medical History Pertinent Negatives: Diagnosis Date Noted Bleeding disorder ([facility]) 05/09/2015 Cancer ([facility]) 09/10/2016 Coronary artery disease 05/09/2015 Deep vein thrombosis ([facility]) 05/09/2015 History of blood transfusion 05/09/2015 No blood products 05/09/2015 Pulmonary embolism ([facility]) 05/09/2015 Sleep apnea, obstructive 05/09/2015 Past Surgical History: Procedure Laterality Date ARTHRODESIS SUBTALAR Left 05/24/2015 Procedure: NAVICULOCUNEIFORM ARTHRODESIS LEFT; Surgeon: Shante Delarosa DPM; Location: [facility] [place] [facility] [place]; Service: ARTHROPLASTY TOE Left 09/14/2016 Procedure: LEFT 5TH TOE ARTHROPLASTY ; Surgeon: Shante Delarosa DPM; Location: [facility] [place] [facility]; Service: BUNIONECTOMY LAPIDUS Left 09/14/2016 Procedure: LEFT FOOT LAPIDUS ; Surgeon: Shante Delarosa DPM; Location: [facility] [place] [facility]; Service: CHOLECYSTECTOMY HARDWARE REMOVAL FOOT Left 10/28/2015 Procedure: HARDWARE REMOVAL LEFT FOOT; Surgeon: Shante Delarosa DPM; Location: [facility] [place] [facility]; Service: HYSTERECTOMY JOINT REPLACEMENT 2007, 2008 partial knee replacement bilat OSTEOTOMY Left 05/24/2015 Procedure: [place] CALCANEAL OSTEOTOMY LEFT; Surgeon: Shante Delarosa DPM; Location: [facility] [place] [facility]; Service: OSTEOTOMY CALCANEUS POSTERIOR Left 09/14/2016 Procedure: LEFT FOOT CALCANEAL OSTEOTOMY; Surgeon: Shante Delarosa DPM; Location: [facility] [place] [facility]; Service: REMOVAL HARDWARE Left 09/14/2016 Procedure: LEFT FOOT REMOVAL OF HARDWARE; Surgeon: Shante Delarosa DPM; Location: [facility] [place] [facility]; Service: right foot achilles tendon lengethening 2012 TENDON REPAIR ACHILLES (OR LENGTHENING) Left 05/24/2015 Procedure: TENDON REPAIR ACHILLES (OR LENGTHENING) LEFT; Surgeon: Shante Delarosa DPM; Location: [facility] [place] [facility]; Service: TENDON REPAIR TIBULUS POSTERIOR / RESECTION GASTRONEMIUS Left 05/24/2015 Procedure: POSTERIOR TIBIAL TENDON DEBRIDEMENT AND REPAIR LEFT; Surgeon: Shante Delarosa DPM; Location: [facility] [place] [facility]; Service: Social History Substance Use Topics Smoking status: Never Smoker Smokeless tobacco: Never Used Alcohol use Yes Comment: occasional Family History Problem Relation Age of Onset Heart disease Father Aneurysm Father Anesthesia problems Mother Cancer Mother No Known Problems Sister No Known Problems Brother Surgical complications Neg Hx Clotting disorder Neg Hx Pulmonary embolism Neg Hx Deep vein thrombosis Neg Hx @ Prior to Admission medications Medication Sig Taking? Dose Freq calcium carbonate (OS-PILAR) 600 mg (1,500 mg) tablet Take 600 mg by mouth 2 (two) times a day with meals Yes 600 mg, Oral, BID with meals celecoxib (CELEBREX) 200 MG capsule Take 200 mg by mouth 2 (two) times a day Yes 200 mg, Oral, BID cholestyramine (QUESTRAN) 4 gram powder Take 4 g by mouth every morning Reasons: Chronic Diarrhea. Yes 4 g, Oral, QAM EPIPEN 2-PANCHITO 0.3 mg/0.3 mL AtIn USE ONLY DIRECTED FOR ALLERGIC REACTION, CALL 911 AND GO TO E.R. Yes USE ONLY DIRECTED FOR ALLERGIC REACTION, CALL 911 AND GO TO E.R. fluticasone (FLONASE) 50 mcg/actuation nasal spray Instill 2 sprays into each nostril every morning . Yes 2 sprays, Nasal, QAM fluticasone-salmeterol (ADVAIR DISKUS) 250-50 mcg/dose diskus inhaler Inhale 1 puff 2 (two) times a day Yes 1 puff, Inhalation, BID L.ACID/L.CASEI/B.BIF/B.LUPE/FOS (PROBIOTIC BLEND ORAL) Take by mouth every morning. Yes Oral, QAM levothyroxine (SYNTHROID, LEVOTHROID) 137 MCG tablet Take 137 mcg by mouth every morning. Yes 137 mcg, Oral, QAM metFORMIN (GLUCOPHAGE) 500 MG tablet Take 500 mg by mouth every morning. Yes 500 mg, Oral, QAM multivitamin (multivitamin) per tablet Take 1 tablet by mouth every morning . Yes 1 tablet, Oral, QAM omeprazole (PRILOSEC) 40 MG capsule Take 40 mg by mouth every morning. Yes 40 mg, Oral, QAM VENTOLIN HFA 90 mcg/actuation inhaler 2 puffs every 4 to 6 hours as needed. Yes 2 puffs, Q4-6h PRN zafirlukast (ACCOLATE) 20 MG tablet Take 20 mg by mouth 2 (two) times a day Yes 20 mg, Oral, BID levothyroxine (SYNTHROID, LEVOTHROID) 75 MCG tablet Take 75 mcg by mouth every morning Pt takes 11/2 tablets Sat, Sat, Sat, Sat . 75 mcg, Oral, QAM, Pt takes 11/2 tablets Sat, Sat, Sat, Sat levothyroxine (SYNTHROID, LEVOTHROID) 75 MCG tablet Take 75 mcg by mouth every morning Pt takes 2 tablets Tues, Thurs, Sun . 75 mcg, Oral, QAM, Pt takes 2 tablets , Th, Sun oxymetazoline (AFRIN) 0.05 % nasal spray Instill 2 sprays into each nostril 2 (two) times a day. 2 sprays, Nasal, BID Allergies Allergen Reactions Keflex [Cephalexin] Hives Penicillins Hives Review of Systems Constitution: (negative) HENT: (negative) Eyes: (negative) Respiratory: (negative) Cardiovascular: (negative) - Exercise capacity: Greater than 4 METS Gastrointestinal: (negative) Genitourinary: (negative) Musculoskeletal: (negative) Skin: (negative) Neurological: (negative) Hematological: (negative) Physical Exam BP 138/81 Pulse 81 Temp 97.9 ?F (36.6 ?C) Ht 4' 11 Wt 89.8 kg (198 lb) SpO2 97% BMI 39.99 kg/m2 Constitutional--Conversant, in no acute distress. Skin--Normal turgor, no rashes noted. Eyes--Pupils equal in size bilaterally; anicteric sclerae. Ears/nose/mouth/throat--Hearing intact; oropharynx clear with moist mucosa. Neck--Trachea midline, no goiter. Cardiovascular--Regular rhythm, no peripheral edema noted. Respiratory--Clear to auscultation bilaterally; no accessory muscle use noted. Gastrointestinal--Soft, protuberant and non-tender; no hepatosplenomegaly noted. Musculoskeletal--No calf tenderness bilaterally; no clubbing or cyanosis of digits noted. Psychiatric--alert and oriented to person, place and time; appropriate affect noted. Data Preprocedure Sleep Apnea Assessment - Moderate Risk (2/3) Sleep Apnea in the patient's Active Problem List or Medical History: no 1. History of apparent airway obstruction during sleep: (1 point for this category) Do you snore frequently, or snore loud enough to be heard through a closed door?: no Do you awaken from sleep with a choking sensation or have periods during sleep when someone has observed you pausing between breaths?: no 2. Somnolence of the patient: (1 point for this category) Do you find yourself frequently sleepy despite adequate hours of sleep the night before?: no Do you fall asleep easily while: watching TV, reading, riding in or driving a car?: no 3. Predisposing physician characteristics: (1 point for this category, 2 points if the BMI ? 40) BMI (Calculated): 40 Neck Circumference (inches): 15.5 inches Recent Results (from the past 21571 hours) XR CERVICAL SPINE AP/LAT 05/09/2015 (Final) Status: Normal Narrative EXAMINATION: XR CERVICAL SPINE FLEX/EXT 05/09/2015 HISTORY: Preop Rheumatoid Arthritis. Flexion and extension to evaluate neck stability. TECHNIQUE: Lateral flexion-extension radiographs were obtained. COMPARISON: None. FINDINGS: Alignment is within normal limits. There is degenerative disc space narrowing at C5-6 with associated anterior hypertrophic spurring. The remaining disc spaces are preserved. Facet joints are normally aligned. There is no evidence of cervical instability. There are no bony destructive lesions. The prevertebral soft tissues are normal. Incidental note is made of incompletely erupted wisdom teeth in the mandibular region. Impression 1. No evidence of cervical instability. 2. Degenerative disc disease at C5-6. Workstation ID: [id number] Electrocardiogram-tracing independently reviewed and interpreted-diffuse T-wave inversion clinically anterior possibly suggestive of ischemia.in this encounter Formatting of this note may be different from the original. Assessment and Plan 1. Preoperative testing Preoperative medical risk stratification indicates that the patient is at acceptable risk for elective/low risk surgery-LEFT FOOT HARDWARE REMOVAL [facility] OR 05/16/17 pending laboratory/results of cardiac stress test. ECG 12 Lead 2. Retained orthopedic hardware The patient should discontinue any aspirin products, antiinflammatory drugs or herbal/supplement medications from now prior to surgery as outlined in the patient medication instruction sheet given to the patient today at preadmission testing. 3. Pre-operative cardiovascular examination This patient has no active cardiac conditions and would be considered at a low risk for a major adverse cardiac event (MACE) based on a revised cardiac risk index (RCRI) score of 0. This patient has an activity level greater than 4 METS and would be considered at acceptable cardiac risk based on the 2014 [place] [employer]/[place] [employer] (ACC/AHA) guideline on Perioperative Cardiovascular Evaluation and Management of Patients Undergoing Noncardiac Surgery. 4. Type 2 diabetes mellitus without complication, without long-term current use of insulin (HCC) Controlled on metformin discontinued today prior to surgery. 5. Asthmatic bronchitis, unspecified asthma severity, uncomplicated Controlled on Advair inhaler that she is a.m. day of surgery/as needed albuterol inhaler that she is a.m. day of surgery/Accolate take a.m. day of surgery. 6. Gastroesophageal reflux disease without esophagitis Controlled on omeprazole does take a.m. day of surgery. 7. Acquired hypothyroidism Controlled on levothyroxine discontinued today prior to surgery. 8. Nonspecific abnormal electrocardiogram (ECG) (EKG) Unfortunate no prior ECGs for comparison therefore will order NM Myocardial Perfusion Multiple SPECT prior to surgery. 9. Risk factors for obstructive sleep apnea The patient was noted to have risk factors for obstructive sleep apnea as noted on screening today in preadmission testing. This would place the patient at risk for postoperative respiratory compromise/hypoxia. Close respiratory monitoring and pulse oximetry monitoring should be instituted postoperatively. 10. Moderate obesity Body mass index is 39.99 kg/(m^2). 11. No contraindication to deep vein thrombosis (DVT) prophylaxis Deep venous thrombosis prophylaxis per primary service. Recommend: 2012 Antithrombotic therapy for VTE disease: Antithrombotic Therapy and Prevention of Thrombosis, 9th ed: [place] [employer] Evidence- Based Clinical Practice Guidelines. Chief Complaint Patient presents with Pre-operative Medical Risk Stratification History of Present Illness Carolina Gomez is a 56 y.o. female who presents for preoperative medical risk stratification consult at the request of Shante Delarosa DPM prior to LEFT FOOT HARDWARE REMOVAL [facility] [place] 05/16/17. Pt had left foot surgery in 08/2016 (foot was rolling outward) and now that hardware that was placed then is moving and pointing outward and rubbing against her shoe. The patient describes his pain as mild moderate intensity, dull to sharp in character. The patient denies any chest pain or chest heaviness. In addition, the patient states that she is able to walk up a flight of steps without becoming short of breath. Please see below regarding status of active medical conditions and assessment and plan regarding details of preoperative medical risk stratification. Past Medical History: Diagnosis Date Arthritis Asthma Diabetes mellitus, type 2 (HCC) checks BS once a day, usually runs in the 100's Diverticulosis DVT (deep venous thrombosis) ([facility]) R lower leg Eczema GERD (gastroesophageal reflux disease) Hypothyroidism since age 24 Irritable bowel syndrome PONV (postoperative nausea and vomiting) Varicosities Past Medical History Pertinent Negatives: Diagnosis Date Noted Bleeding disorder (HCC) 05/09/2015 Cancer ([facility]) 09/10/2016 Coronary artery disease 05/09/2015 Deep vein thrombosis ([facility]) 05/09/2015 History of blood transfusion 05/09/2015 No blood products 05/09/2015 Pulmonary embolism ([facility]) 05/09/2015 Sleep apnea, obstructive 05/09/2015 Past Surgical History: Procedure Laterality Date ARTHRODESIS SUBTALAR Left 05/24/2015 Procedure: NAVICULOCUNEIFORM ARTHRODESIS LEFT; Surgeon: Shante Delarosa DPM; [facility] [facility] [place] [facility] [place]; Service: ARTHROPLASTY TOE Left 09/14/2016 Procedure: LEFT 5TH TOE ARTHROPLASTY ; Surgeon: Shante Dlearosa DPM; Location: [facility] [place] [facility] [place]; Service: BUNIONECTOMY LAPIDUS Left 09/14/2016 Procedure: LEFT FOOT LAPIDUS ; Surgeon: Shante Delarosa DPM; Location: [facility] [place] [facility] [place]; Service: CHOLECYSTECTOMY HARDWARE REMOVAL FOOT Left 10/28/2015 Procedure: HARDWARE REMOVAL LEFT FOOT; Surgeon: Shante Delarosa DPM; Location: [facility] [place] [facility] [place]; Service: HYSTERECTOMY JOINT REPLACEMENT 2007, 2008 partial knee replacement bilat OSTEOTOMY Left 05/24/2015 Procedure: CHAMPAGNE CALCANEAL OSTEOTOMY LEFT; Surgeon: Shante Delarosa DPM; Location: [facility] [place] [facility] [place]; Service: OSTEOTOMY CALCANEUS POSTERIOR Left 09/14/2016 Procedure: LEFT FOOT CALCANEAL OSTEOTOMY; Surgeon: Shante Delarosa DPM; Location: [facility] [place] [facility] [place]; Service: REMOVAL HARDWARE Left 09/14/2016 Procedure: LEFT FOOT REMOVAL OF HARDWARE; Surgeon: Shante Delarosa DPM; Location: [facility] [place] [facility] [place]; Service: right foot achilles tendon 2012 TENDON REPAIR ACHILLES (OR LENGTHENING) Left 05/24/2015 Procedure: TENDON REPAIR ACHILLES (OR LENGTHENING) LEFT; Surgeon: Shante Delarosa DPM; Location: [facility] [place] [facility] [place]; Service: TENDON REPAIR TIBULUS POSTERIOR / RESECTION GASTRONEMIUS Left 05/24/2015 Procedure: POSTERIOR TIBIAL TENDON DEBRIDEMENT AND REPAIR LEFT; Surgeon: Shante Delarosa DPM; Location: [facility] [place] [facility] [place]; Service: Social History Substance Use Topics Smoking status: Never Smoker Smokeless tobacco: Never Used Alcohol use Yes Comment: occasional Family History Problem Relation Age of Onset Heart disease Father Aneurysm Father Anesthesia problems Mother Cancer Mother No Known Problems Sister No Known Problems Brother Surgical complications Neg Hx Clotting disorder Neg Hx Pulmonary embolism Neg Hx Deep vein thrombosis Neg Hx @ Prior to Admission medications Medication Sig Taking? Dose Freq calcium carbonate (OS-PILAR) 600 mg (1,500 mg) tablet Take 600 mg by mouth 2 (two) times a day with meals Yes 600 mg, Oral, BID with meals celecoxib (CELEBREX) 200 MG capsule Take 200 mg by mouth 2 (two) times a day Yes 200 mg, Oral, BID cholestyramine (QUESTRAN) 4 gram powder Take 4 g by mouth every morning Reasons: Chronic Diarrhea. Yes 4 g, Oral, QAM EPIPEN 2-PANCHITO 0.3 mg/0.3 mL AtIn USE ONLY DIRECTED FOR ALLERGIC REACTION, CALL 911 AND GO TO E.R. Yes USE ONLY DIRECTED FOR ALLERGIC REACTION, CALL 911 AND GO TO E.R. fluticasone (FLONASE) 50 mcg/actuation nasal spray Instill 2 sprays into each nostril every morning . Yes 2 sprays, Nasal, QAM fluticasone-salmeterol (ADVAIR DISKUS) 250-50 mcg/dose diskus inhaler Inhale 1 puff 2 (two) times a day Yes 1 puff, Inhalation, BID L.ACID/L.CASEI/B.BIF/B.LUPE/FOS (PROBIOTIC BLEND ORAL) Take by mouth every morning. Yes Oral, QAM levothyroxine (SYNTHROID, LEVOTHROID) 137 MCG tablet Take 137 mcg by mouth every morning. Yes 137 mcg, Oral, QAM metFORMIN (GLUCOPHAGE) 500 MG tablet Take 500 mg by mouth every morning. Yes 500 mg, Oral, QAM multivitamin (multivitamin) per tablet Take 1 tablet by mouth every morning . Yes 1 tablet, Oral, QAM omeprazole (PRILOSEC) 40 MG capsule Take 40 mg by mouth every morning. Yes 40 mg, Oral, QAM VENTOLIN HFA 90 mcg/actuation inhaler 2 puffs every 4 to 6 hours as needed. Yes 2 puffs, Q4-6h PRN zafirlukast (ACCOLATE) 20 MG tablet Take 20 mg by mouth 2 (two) times a day Yes 20 mg, Oral, BID levothyroxine (SYNTHROID, LEVOTHROID) 75 MCG tablet Take 75 mcg by mouth every morning Pt takes 11/2 tablets Mon, Sat, Sat, Sat . 75 mcg, Oral, QAM, Pt takes 11/2 tablets Mon, Wed, Fri, Sat levothyroxine (SYNTHROID, LEVOTHROID) 75 MCG tablet Take 75 mcg by mouth every morning Pt takes 2 tablets Tues, Thurs, Sun . 75 mcg, Oral, QAM, Pt takes 2 tablets Tues, Thurs, Sun oxymetazoline (AFRIN) 0.05 % nasal spray Instill 2 sprays into each nostril 2 (two) times a day. 2 sprays, Nasal, BID Allergies Allergen Reactions Keflex [Cephalexin] Hives Penicillins Hives Review of Systems Constitution: (negative) HENT: (negative) Eyes: (negative) Respiratory: (negative) Cardiovascular: (negative) - Exercise capacity: Greater than 4 METS Gastrointestinal: (negative) Genitourinary: (negative) Musculoskeletal: (negative) Skin: (negative) Neurological: (negative) Hematological: (negative) Physical Exam BP 138/81 Pulse 81 Temp 97.9 ?F (36.6 ?C) Ht 4' 11 Wt 89.8 kg (198 lb) SpO2 97% BMI 39.99 kg/m2 Constitutional--Conversant, in no acute distress. Skin--Normal turgor, no rashes noted. Eyes--Pupils equal in size bilaterally; anicteric sclerae. Ears/nose/mouth/throat--Hearing intact; oropharynx clear with moist mucosa. Neck--Trachea midline, no goiter. Cardiovascular--Regular rhythm, no peripheral edema noted. Respiratory--Clear to auscultation bilaterally; no accessory muscle use noted. Gastrointestinal--Soft, protuberant and non-tender; no hepatosplenomegaly noted. Musculoskeletal--No calf tenderness bilaterally; no clubbing or cyanosis of digits noted. Psychiatric--alert and oriented to person, place and time; appropriate affect noted. Data Preprocedure Sleep Apnea Assessment - Moderate Risk (2/3) Sleep Apnea in the patient's Active Problem List or Medical History: no 1. History of apparent airway obstruction during sleep: (1 point for this category) Do you snore frequently, or snore loud enough to be heard through a closed door?: no Do you awaken from sleep with a choking sensation or have periods during sleep when someone has observed you pausing between breaths?: no 2. Somnolence of the patient: (1 point for this category) Do you find yourself frequently sleepy despite adequate hours of sleep the night before?: no Do you fall asleep easily while: watching TV, reading, riding in or driving a car?: no 3. Predisposing physician characteristics: (1 point for this category, 2 points if the BMI ? 40) BMI (Calculated): 40 Neck Circumference (inches): 15.5 inches Recent Results (from the past 17547 hours) XR CERVICAL SPINE AP/LAT 05/09/2015 (Final) Status: Normal Narrative EXAMINATION: XR CERVICAL SPINE FLEX/EXT 05/09/2015 HISTORY: Preop Rheumatoid Arthritis. Flexion and extension to evaluate neck stability. TECHNIQUE: Lateral flexion-extension radiographs were obtained. COMPARISON: None. FINDINGS: Alignment is within normal limits. There is degenerative disc space narrowing at C5-6 with associated anterior hypertrophic spurring. The remaining disc spaces are preserved. Facet joints are normally aligned. There is no evidence of cervical instability. There are no bony destructive lesions. The prevertebral soft tissues are normal. Incidental note is made of incompletely erupted wisdom teeth in the mandibular region. Impression 1. No evidence of cervical instability. 2. Degenerative disc disease at C5-6. Workstation ID: [id number] Electrocardiogram-tracing independently reviewed and interpreted-diffuse T-wave inversion clinically anterior possibly suggestive of ischemia.in this encounter Brief Op Note - Shante Delarosa DPM - 05/16/2017 1:35 PM EST Miscellaneous Notes (unrecog nized section and content) Formatting of this note may be different from the original. Brief Post Operative Note Date of Service: 05/16/2017 Clinician: Shante Delarosa DPM OR Staff: Gravity Flow Irrigator: Latonia Mendez RN Relief Gravity Flow Irrigator: Karson Starkey RN Scrub Person: Claire Falcon RN Scrub Person Assist: Danya Weinstein RN Anesthesia Staff: Anesthesiologist: Larisa Javier DO SOFTWARE MAINTENANCE ENGINEER: Bita Baeza CRNA Surgeon(s):Surgeon(s) and Role: * Shante Delarosa DPM - Primary Pre-Operative Diagnoses: COMPLICATION OF HARDWARE Post-Operative Diagnoses: Post-Op Diagnosis Codes: * Complication internal fixation device such as nail, plate, or sabiha, sequela [T84.9XXS] Procedure(s) performed: Procedure(s): LEFT FOOT HARDWARE REMOVAL Specimen(s) removed: * No specimens in log * Operative findings: see op note Implants: Implant Name Type Inv. Item Serial No. Route Supervisor Lot No. LRB No. Used Action plate YUEN MED Left 2 Explanted screws YUEN MED Left 7 Explanted Dressings: Soft dressing Estimated Blood Loss: Minimal Type of Anesthesia used: General Intra and Immediate Post-op Complications: none Shante Delarosa DPM 05/16/2017 1:35 PM CSN: [id number] this encounter Leelee Chester RN - 05/13/2017 9:58 AM EST Nursing Notes (unrecognized section and content) Our goal here at [facility] is to make your time with us as comprehensive and as pleasant for you as possible. In order for that to happen we would ask you to be aware of the following guidelines and information: ? You are to have nothing to eat or drink after midnight the night before your surgery no mints, no gum, no water, no food. ? [facility] will call you the day prior to your surgery between 1-3pm with your surgery time and time of arrival. Please be sure to provide us with a good working phone number at which we can reach you. ? Report to the 1st floor Patient Registration inside the main doors the day of surgery (unless you are a in which case you go directly to the [facility] located on the 4th Floor). ? No tobacco or alcohol 24 hours prior to surgery. ? You must have someone to drive you home after your surgery. You will not be allowed to drive yourself home or use public transportation unless you have a friend or family member with you. ? Bathe/Shower with an antibacterial soap such as Dial. If you have been given a surgical soap such as Clorhexidine use as directed. Do not apply anything to the skin after bathing. ? Remove all jewelry and piercings prior to surgery. ? You may brush your teeth or rinse your mouth but do not swallow any water. ? Bring a case for any eyeglasses, contacts, dentures or hearing aids. ? Wear loose, comfortable clothing and low-heeled rubber soled shoes that have a back to them. ? Please use the main parking lot labeled Visitor Parking on the day of your surgery. If necessary you may be dropped off at the front entrance while your chief writer baldwin the car. Someone must accompany you to drive you home after surgery. ? Please bring a photo ID and insurance information with you. ? If staying overnight at the hospital, please bring any personal items you will require and any assistive devices such as C-PAP, hearing aids, etc. Please feel free to call Pre-Admission Testing with any questions you may have Saturday 8 am - 3:30 pm at [phone]. in this encounter INFORMATION SOURCE (unrecogn ized section and content) DATE CREATED AUTHOR 12/24/2017 [facility] DATE CREATED AUTHOR AUTHOR'S ORGANIZ ATION 03/01/2021 [facility] DATE CREATED AUTHOR AUTHOR'S ORGANIZ ATION 09/14/2021 [facility] dical Specialist DATE CREATED AUTHOR AUTHOR'S ORGANIZ ATION 12/10/2022 [facility] DATE CREATED AUTHOR AUTHOR'S ORGANIZ ATION 02/25/[address] [facility] DATE CREATED AUTHOR AUTHOR'S ORGANIZ ATION 05/26/2023 [facility] DATE CREATED AUTHOR AUTHOR'S ORGANIZ ATION 07/20/2023 [facility] DATE CREATED AUTHOR AUTHOR'S ORGANIZ ATION 08/03/2023 [facility] DATE CREATED AUTHOR AUTHOR'S ORGANIZ ATION 08/07/2023 [facility] DATE CREATED AUTHOR AUTHOR'S ORGANIZ ATION 08/09/2023 [facility] Source Comments (unrecognize d section and content) In the event this informatio n is protected by the Federal Confidentiality of Alcohol and Drug Abuse Patient Records regulations: The Federal rules restrict any use of the information to criminally investigate or prosecute any alcohol or drug abuse patient.[facility] the event this information is protected by the Federal Confidentiality of Alcohol and Drug Abuse Patient Records regulations: The Federal rules restrict any use of the information to criminally investigate or prosecute any alcohol or drug abuse patient.[facility] the event this information is protected by the Federal Confidentiality of Alcohol and Drug Abuse Patient Records regulations: The Federal rules restrict any use of the information to criminally investigate or prosecute any alcohol or drug abuse patient.[facility] the event this information is protected by the Federal Confidentiality of Alcohol and Drug Abuse Patient Records regulations: The Federal rules restrict any use of the information to criminally investigate or prosecute any alcohol or drug abuse patient.[facility] the event this information is protected by the Federal Confidentiality of Alcohol and Drug Abuse Patient Records regulations: The Federal rules restrict any use of the information to criminally investigate or prosecute any alcohol or drug abuse patient.[facility] the event this information is protected by the Federal Confidentiality of Alcohol and Drug Abuse Patient Records regulations: The Federal rules restrict any use of the information to criminally investigate or prosecute any alcohol or drug abuse patient.[facility] Hospital[facility] the event this information is protected by the Federal Confidentiality of Alcohol and Drug Abuse Patient Records regulations: The Federal rules restrict any use of the information to criminally investigate or prosecute any alcohol or drug abuse patient.[facility] Reason for Visit (unrecogniz ed section and content) Reason Onset Date Comments Patient Question 11/24/2015 Results 11/24/2015 Reason Comments Pain Specialty Diagnoses / Procedures Referred By Brittany rahman Referred To Contact Diagnoses Hx of total knee arthroplasty, right Procedures XR KNEE RIGHT 3 VIEWS EmilieMedardo, GLAZING DEPARTMENT SUPERVISOR-VALIDATION SPECIALIST [address] [facility] [place] [address] Referral ID Status Reason Start Date Expiration Date V isits Requested Visits Authorized [id number] New Request 02/09/2022 03/06/2023 1 1 Reason Comments Post Op Visit Reason Comments Refill Request Reason Comments Results Reason Comments Follow-up Reason Comments Medication Authorization [employer] Insurance Authorization Prior Auth Delay ed: Patient has an authorization for Prolia on file with an outside facility and provider 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 Patient states she has no pain. However,she does have weakness when going up steps. Reason Comments [employer] prior auth renewal Reason Comments YAG Blurred Vision Care Teams (unrecognized sec tion and content) Sensory Scientist Relationship Specialty Start Date End Date Aline Guerrero MD [address] [place] [address] PCP - General Family Medicine 01/11/22 Sensory Scientist Relationship Specialty Start Date End Date Aline Guerrero MD [address] [facility] [place] [address] PCP - General Family Medicine 01/11/22 Sensory Scientist Relationship Specialty Start Date End Date Aline Guerrero MD [address] [facility] [place] [address] PCP - General Family Medicine 01/11/22 Sensory Scientist Relationship Specialty Start Date End Date Aline Guerrero MD [address], [place] [address] PCP - General Family Medicine 01/11/22 Team Status: Inactive Member Role Status Dates Aline Guerrero MD Primary Care Provider Active Consuelo Rosales APRN Attending Provider Active Team Status: Active Member Role Status Dates Aline Guerrero MD Primary Care Provider Active Team Status: Inactive Member Role Status Dates Aline Guerrero MD Primary Care Provider Active RADHA Bowers Attending Provider Active Sensory Scientist Relationship Specialty Start Date End Date Aline Guerrero MD [address] [place] [address] PCP - General 10/11/00 Sensory Scientist Relationship Specialty Start Date End Date Aline Guerrero MD [address] [place] [address] PCP - General 10/11/00 Sensory Scientist Relationship Specialty Start Date End Date Aline Guerrero MD [address], [place] [address] PCP - General Family Medicine 01/11/22 Sensory Scientist Relationship Specialty Start Date End Date Aline Guerrero MD [address] [place] [address] PCP - General 10/11/00 Sensory Scientist Relationship Specialty Start Date End Date Aline Guerrero MD [address] [place] [address] PCP - General 10/11/00 Sensory Scientist Relationship Specialty Start Date End Date Aline Guerrero MD [address], [place] [address] PCP - General Family Medicine 01/11/22 Sensory Scientist Relationship Specialty Start Date End Date Aline Guerrero MD [address] [place] [address] PCP - General [facility] Medicine 01/11/22 Sensory Scientist Relationship Specialty Start Date End Date Aline Guerrero MD [address] [place] [address] PCP - General 10/11/00 Sensory Scientist Relationship Specialty Start Date End Date Aline Guerrero MD [address] [place] [address] PCP - General 10/11/00 Sensory Scientist Relationship Specialty Start Date End Date Silvestre Benavides MD [address] [place] [address] PCP - General Family Medicine 03/05/23 Scheduled Active and Recently Administ ered Medications (unrecognized section and content) Medication Order 01/22/2022 01/23/2022 01/24/2022 acetaminophen (TYLENOL) tablet 1,000 mg (COMPLETED) 1,000 mg, Oral, ONCE, 1 dose, On Sat01/23/22 at 0945, Administer 1 hour preop., Pre-op/Pre-Proc 1033 (Given - Provider: Jacqueline Blake RN) acetaminophen (TYLENOL) tablet 1,000 mg 1,000 mg, Oral, EVERY 6 HOURS NON-STANDARD, First dose on Sat01/23/22 at 1715, Until Discontinued, , Post-op/Post-Proc 1617 (Given - Provider: Jacqueline Blake RN)2304 (Given - Provider: Rosa Haque, KAILA) 0443 (Given - Provider: Rosa Haque RN)1120 (Given - Provider: Greta Claudio RN)1715 (Canceled Entry - Provider: System Discharge - Comment: Automatically canceled at discontinue of medication order) albuterol inhaler 1 puff 1 puff, Inhalation, 4 TIMES DAILY, First dose on Sat01/23/22 at 1900, Until Discontinued, Wait at least one(1) full minute between inhalations 2016 (Not Given - Provider: Nasrin Mendiola SHUTTLE FINAL INSPECTOR - Reason: Patient/family refused)2300 (Canceled Entry - Provider: System Discharge - Comment: Automatically canceled at discontinue of medication order) 0647 (Not Given - Provider: Nichol Warren [facility] - Reason: Other - Comment: Patient has home MDI)1500 (Canceled Entry - Provider: System Discharge - Comment: Automatically canceled at discontinue of medication order) ceFAZolin (ANCEF) 2 g in dextrose 100 mL premix IVPB (COMPLETED) 2 g, Intravenous, Administer over 30 Minutes, EVERY 8 HOURS NON-STANDARD, 3 doses, First dose on Sat01/23/22 at 2015, Last dose on Sat01/24/22 at 1215, Post-op/Post-Proc 2038 ($$New Bag$$ - Provider: Rosa Haque RN) 0443 ($$New Bag$$ - Provider: Rosa Haque RN)0700 (Stopped - Provider: Greta Claudio RN - Comment: not running upon arrival to floor for shift)1121 ($$New Bag$$ - Provider: Greta Claudio RN)1151 (Stopped - Provider: Greta Claudio, RN) celecoxib (CELEBREX) capsule 200 mg (COMPLETED) 200 mg, Oral, ONCE, 1 dose, On Sat01/23/22 at 0945, Administer 2 hours preop., Pre-op/Pre-Proc 1033 (Given - Provider: Jacqueline Blake RN) cholestyramine light packet 4 g 4 g, Oral, DAILY, First dose on Sat01/24/22 at 0900, Until Discontinued 0840 (Given - Provid er: Greta Claudio, KAILA) dexAMETHasone (DECADRON) injection 10 mg (COMPLETED) 10 mg, Intravenous, EVERY 24 HOURS, 1 dose, First dose (after last modification) on Sat01/24/22 at 1430, 24 hours post op, Post-op/Post-Proc 1419 (Given - Provid er: Greta Claudio RN) docusate (COLACE) capsule 100 mg 100 mg, Oral, 2 TIMES DAILY, First dose on Sat01/23/22 at 1700, Until Discontinued, Post-op/Post-Proc 1617 (Given - Provider: Jacqueline Blake RN) 0841 (Given - Provider: Greta Claudio RN)1700 (Canceled Entry - Provider: System Discharge - Comment: Automatically canceled at discontinue of medication order) Enoxaparin Sodium (LOVENOX) injection 40 mg 40 mg, Subcutaneous, DAILY, First dose on Sat01/24/22 at 0900, Until Discontinued, *before heparin or Lovenox is initiated obtain: PT, PTT, CBC(with Platelets) & serum creatinine Start in AM day after surgery, Indications: DVT/PE prophylaxis, Post-op/Post-Proc 0840 (Given - Provid er: Greta Claudio RN) Fluticasone-Salmeterol (ADVAIR HFA) 115-21 MCG/ACT inhaler 2 puff 2 puff, Inhalation, 2 TIMES DAILY, First dose on Sat01/23/22 at 1745, Until Discontinued 2018 (Not Given - Provider: Nasrin Mendiola RCP - Reason: Patient/family refused) 0647 (Not Given - Provider: Nichol Warren RCP - Reason: Other - Comment: Patient does home MDI) glucose chewable tablet CHEW 16-32 g(Linked Group 1) 16-32 g (4-8 tablet), Oral, SEE ADMIN INSTRUCTIONS, Starting on Sat01/23/22 at 1736, Until Sat01/24/22 at 1830, If patient is alert and able to tolerate oral medications and blood glucose 69 - 50 mg/dL: give 4 chew tabs, if blood glucose 49 - 20 mg/dL: give 8 chew tabs. Notify physician and repeat blood glucose in 20 minutes. May repeat treatment x 1 if blood glucose less than 60 mg/dL. For alternative treatment options (juice, etc.) refer to the hypoglycemia management protocol on Ellucid: N-GQ-Wrtfymnieeiz Management Protocol. insulin lispro (HumaLOG) injection(Linked Group 1) Subcutaneous, 4 TIMES DAILY WITH MEALS & AT BEDTIME, First dose on Sat01/23/22 at 1745, Until Discontinued, Sliding Scale parameters: Blood glucose under 70 = call physician; 151 - 200 = 1 units; 201 - 250 = 2 units; 251 - 300 = 3 units; 301 - 350 = 4 units; 351 - 400 = 5 units; Over 400 = call physician. 1756 (Not Given - Provider: Jacqueline Blake RN - Reason: Order Parameters not met)2038 (Given - Provider: Rosa Haque RN) 0840 (Given - Provider: Greta Claudio RN)1255 (Not Given - Provider: Greta Claudio RN - Reason: Order Parameters not met)1700 (Canceled Entry - Provider: System Discharge - Comment: Automatically canceled at discontinue of medication order) levothyroxine (SYNTHROID) tablet 137 mcg 137 mcg, Oral, DAILY, First dose on Sat01/24/22 at 0900, Until Discontinued 0841 (Given - Provid er: Greta Claudio RN) loratadine (CLARITIN) tablet 20 mg 20 mg, Oral, DAILY, First dose on Sat01/24/22 at 0900, Until Discontinued 0841 (Given - Provid er: Greta Claudio RN) montelukast (SINGULAIR) tablet 10 mg 10 mg, Oral, DAILY, First dose on Sat01/24/22 at 0900, Until Discontinued 0841 (Given - Provid er: Greta Claudio RN) multivitamin tablet 1 tablet 1 tablet, Oral, DAILY EVERY MORNING, First dose on Sat01/23/22 at 1745, Until Discontinued 1802 (Given - Provider: Jacqueline Blake RN) 0841 (Given - Provider: Greta Claudio RN) oxyCODONE (ROXICODONE) tablet 5 mg (COMPLETED) 5 mg, Oral, ONCE, 1 dose, On Sat01/24/22 at 1630 1601 (Given - Provid er: Greta Claudio RN - Comment: physician approved) pantoprazole (PROTONIX) tablet DR 40 mg 40 mg, Oral, DAILY, First dose on Sat01/24/22 at 0900, Until Discontinued, Indications: Continuation of Home Therapy, Inpt Stress Ulcer Prophylaxis 0841 (Given - Provid er: Greta Claudio RN) ropivacaine (NAROPIN) 1 % 400 mg, EPINEPHrine PF (ADRENALIN) 1 MG/ML 1 mg, ketorolac (TORADOL) 30 MG/ML 30 mg, cloNIDine 100 MCG/ML 157 mcg, sodium chloride 0.9% 45 mL 88.57 mL (total volume) (COMPLETED) Intra-articular, INTRA-OP ONCE, 1 dose, Starting on Sat01/23/22 at 1225, Until Sat01/23/22 at 1225, 88.57 mL, To be mixed by pharmacy NOT for IV use, Intra-op/Intra-Proc 1225 (Given - Provider: Waldemar Churchill RN) tranexamic acid (LYSTEDA) tablet 1,950 mg (COMPLETED) 1,950 mg, Oral, ONCE, 1 dose, On Sat01/23/22 at 0945, Administer 2 hours preop, Pre-op/Pre-Proc 1033 (Given - Provider: Jacqueline Blake RN) Continuous Medication Order 01/22/2022 01/23/2022 01/24/2022 ropivacaine (NAROPIN) 0.2 % On-Q pump 750 mL Surgical Site, CONTINUOUS, Starting on Sat01/23/22 at 1430, Until Sat01/24/22 at 1830, Recovery to Continue 1427 ($$New Bag$$ - Provider: Margarita Lockett RN - Comment: verified and unclamped by Patricia BRIGHT) sodium chloride 0.9% IV solution Intravenous, at 100 mL/hr, CONTINUOUS, Starting on Sat01/23/22 at 0945, Until Sat01/24/22 at 1830, Pre-op/Pre-Proc 1036 ($$New Bag$$ - Provider: Jacqueline Blake RN)1201 (Paused - Provider: GURPREET Britton - Comment: Switch to gravity)1202 (Restarted - Provider: GURPREET Britton) sodium chloride 0.9% IV solution Intravenous, at 100 mL/hr, CONTINUOUS, Starting on Sat01/23/22 at 1515, Until Sat01/24/22 at 1830, Convert IV to PRN adapter if adequate oral intake, Post-op/Post-Proc 1620 ($$New Bag$$ - Provider: Jacqueline Blake RN)2245 (Rate/Dose Verify - Provider: Rosa Haque RN) 0443 ($$New Bag$$ - Provider: Rosa Haque RN)0838 (Stopped - Provider: Greta Claudio RN) PRN Medication Order 01/22/2022 01/23/2022 01/24/2022 bisacodyl (DULCOLAX) suppository 10 mg 10 mg, Rectal, DAILY NEEDED, Starting on Sat01/23/22 at 1509, Until Sat01/24/22 at 1830, constipation, Post-op/Post-Proc ceFAZolin (ANCEF) 2 g in dextrose 100 mL premix IVPB (COMPLETED) 2 g, Intravenous, Administer over 30 Minutes, SECURITY MESSENGER TO PROCEDURE, 1 dose, Starting on Sat01/23/22 at 0939, Until Discontinued, Other, Pre-operative antibiotic, For 15 Minutes, Pre-op/Pre-Proc 1202 (Given - Provider: Kodak Falcon APRN-[facility]) dextrose 10% IV solution 250 mL(Linked Group 1) 250 mL, Intravenous, ADMINISTER DIRECTED, Starting on Sat01/23/22 at 1736, Until Sat01/24/22 at 1830, Blood Glucose LESS THAN 70 mg/dL, If blood sugar is less than 70 mg/dL, give Dextrose 10% (IV Large-bore IV preferred). Administer at a rate of 999 mL/hr. Notify physician and repeat blood sugar in 20 minutes. May repeat dextrose X1 if blood sugar less than 60 mg/ml. If unresponsive call DIESEL TRACTOR ENGINE MECHANIC HYDROmorphone (DILAUDID) injection 0.5 mg 0.5 mg, Intravenous, EVERY 4 HOURS NEEDED, Starting on Sat01/23/22 at 1509, Until Sat01/24/22 at 1830, Severe Pain, Post-op/Post-Proc ondansetron 4mg/2ml (ZOFRAN) injection 4 mg 4 mg, Intravenous, EVERY 4 HOURS NEEDED, Starting on Sat01/23/22 at 1509, Until Sat01/24/22 at 1830, Nausea / Vomiting, Post-op/Post-Proc oxyCODONE (ROXICODONE) tablet 5-10 mg 5-10 mg, Oral, EVERY 4 HOURS NEEDED, Starting on Sat01/23/22 at 1509, Until Sat01/24/22 at 1830, moderate-severe pain, If pain unrelieved with oxycodone, contact pharmacist to enter order for Oxycodone ER 10mg PO Q12H for 3 days, Post-op/Post-Proc 0208 (Given - Provid er: Rosa Haque RN)0841 (Given - Provider: Greta Claudio, RN)1358 (Given - Provider: Greta Claudio, RN) senna-docusate (SENOKOT-S) 8.6-50 MG per tablet 2 tablet 2 tablet, Oral, 2 TIMES DAILY NEEDED, Starting on Sat01/23/22 at 1509, Until Sat01/24/22 at 1830, constipation, Post-op/Post-Proc sodium chloride 0.9 % irrigation NEEDED, Starting on Sat01/23/22 at 1224, Until Sat01/24/22 at 1830, Intra-op/Intra-Proc 1224 (Given - Provider: Puja Deluca MD - Comment: given to ) sodium phosphate w/sodium biphosphate (FLEETS) enema 1 enema 1 enema, Rectal, DAILY NEEDED, Starting on Sat01/23/22 at 1509, Until Sat01/24/22 at 1830, Refractory Constipation, use per package instructions, Post-op/Post-Proc vancomycin (VANCOCIN) injection NEEDED, Starting on Sat01/23/22 at 1224, Until Sat01/24/22 at 1830, Intra-op/Intra-Proc 1224 (Given - Provider: Puja Deluca MD - Comment: given to ) zolpidem (AMBIEN) tablet 5 mg 5 mg, Oral, DAILY AT BEDTIME NEEDED, Starting on Sat01/23/22 at 2100, Until Sat01/24/22 at 1830, Sleep, Post-op/Post-Proc Linked Groups Order Group 1: insulin lispro (HumaLOG) injectionJump to med Subcutaneous, 4 TIMES DAILY WITH MEALS & AT BEDTIME, First dose on Sat01/23/22 at 1745, Until Discontinued
Sliding Scale parameters: Blood glucose under 70 = call physician; 151 - 200 = 1 units; 201 - 250 = 2 units; 251 - 300 = 3 units; 301 - 350 = 4 units; 351 - 400 = 5 units; Over 400 = call physician.
And Glucose (POC device) (CANCELED) Routine, 4 TIMES DAILY BEFORE MEALS & AT BEDTIME, First occurrence on Sat01/23/22 at 2100, Until Specified And Glucose (POC device) (CANCELED) Routine, ONE TIME, On Sat01/23/22 at 1737, For 1 occurrence
For all Blood Glucose LESS THAN 70 mg/dL, recheck 20 min after treatment then notify physician. And glucose chewable tablet CHEW 16-32 gJump to med 16-32 g (4-8 tablet), Oral, SEE ADMIN INSTRUCTIONS, Starting on Sat01/23/22 at 1736, Until Sat01/24/22 at 1830
If patient is alert and able to tolerate oral medications and blood glucose 69 - 50 mg/dL: give 4 chew tabs, if blood glucose 49 - 20 mg/dL: give 8 chew tabs. Notify physician and repeat blood glucose in 20 minutes. May repeat treatment x 1 if blood glucose less than 60 mg/dL. For alternative treatment options (juice, etc.) refer to the hypoglycemia management protocol on [facility]: P-[id number] Management Protocol.
And dextrose 10% IV solution 250 mLJump to med 250 mL, Intravenous, ADMINISTER DIRECTED, Starting on Sat01/23/22 at 173, Until Sat01/24/22 at 1830, Blood Glucose LESS THAN 70 mg/dL
If blood sugar is less than 70 mg/dL, give Dextrose 10% (IV Large-bore IV preferred). Administer at a rate of 999 mL/hr. Notify physician and repeat blood sugar in 20 minutes. May repeat dextrose X1 if blood sugar less than 60 mg/ml. If unresponsive call DIESEL TRACTOR ENGINE MECHANIC
And NOTIFY PHYSICIAN, Blood Glucose LESS THAN 70 mg/dl or greater than 400 mg/dl (CANCELED) Routine, CONTINUOUS, Starting on Sat01/23/22 at 1737, Until Specified
Who to Notify: SAMPLE SEWER/Physician
For all Blood Glucose LESS THAN 70 mg/dl, or greater than 400 mg/dl notify SAMPLE SEWER/Physician Goals (unrecognized section and content) Goals may be documented in a n alternate section FOR RECORDS PERTAINING TO PATIENTS WHO ARE OR HAVE BEEN ENROLLED IN A CHEMICAL DEPENDENCY/SUBSTANCEABUSE PROGRAM, SOME INFORMATION MAY BE OMITTED. This clinical summary was aggregated from multiple sources. Caution should be exercised in using it in the provision of clinical care. This summary normalizes information from multiple sources, and as a consequence, information in this document may materially change the coding, format and clinical context of patient data. In addition, data may be omitted in some cases. CLINICAL DECISIONS SHOULD BE BASED ON THE PRIMARY CLINICAL RECORDS. [employer] [facility]. provides no warranty or guarantee of the accuracy or completeness of information in this document.
== END 2023-08-21 08:12 | disposition home or self-care (01) ==
LOC: RAD 08:12
PROVIDERS: PCP Family Medicine; Visit Provider Nurse Practitioner
DX: R05.9 Cough, unspecified (principal); R06.02 Shortness of breath
CPT/HCPCS: 71046

== ENCOUNTER 2023-10-16 16:19 | Outpatient (OUT) | payer BC, SELFPAY ==
[2023-10-16 17:37] LABS: Calcium 9.2 mg/dL (8.5-10.1)
== END 2023-10-16 16:20 | disposition home or self-care (01) ==
LOC: LAB 16:23
PROVIDERS: PCP Family Medicine; Visit Provider Nurse Practitioner Family
DX: M81.0 Age-related osteoporosis without current pathological fracture (principal)
CPT/HCPCS: 36415; 82310

== ENCOUNTER 2023-10-18 16:06 | Outpatient (OUT) | payer BC, SELFPAY ==
--- NOTE | 2023-10-18 16:36 | XR_ITS ---
The [address] [address] Patient Name: CAROLINA GUTIERREZ MRN: [id number] date: 1960 Sex: F Assigned Patient Location: LAB Current Patient Location: Accession/Order Number: [id number] Exam Date: 10/18/2023 16:30 Report Date: 10/18/2023 18:18 At the request of: BERRY BETH Procedure: XR chest 2V XR chest 2V 10/18/2023 4:30 PM EDT HISTORY: Shortness of breath COMPARISON: 08/21/2023 FINDINGS: Mild bibasilar, peripheral atelectasis. No focal airspace opacity. No pleural effusion. The central airway is clear. No pneumothorax. The heart and pulmonary vascularity appear unremarkable. No acute bony abnormality. T6 and T9 compression deformities again noted. Left shoulder arthroplasty. XR/XR chest 2V IMPRESSION: No acute cardiopulmonary abnormality. Bibasilar atelectasis again seen Electronically authenticated by: MAURILIO CH Date: 10/18/2023 18:18
[2023-10-18 16:56] LABS: D Dimer 5.53 mg/L FEU (<=0.59)
== END 2023-10-18 16:07 | disposition home or self-care (01) ==
LOC: LAB 16:08
PROVIDERS: PCP Family Medicine; Visit Provider Nurse Practitioner
DX: R06.02 Shortness of breath (principal); R05.9 Cough, unspecified
CPT/HCPCS: 36415; 71046; 85378

== ENCOUNTER 2023-10-18 17:15 | Emergency (ER) | payer BC, SELFPAY ==
[2023-10-18 17:20] VITALS: BP 183/87; PULSE 113; TEMP 36.7; O2SAT 95; BMI 40.5
[2023-10-18 17:21] VITALS: BP 183/87; O2SAT 100
[2023-10-18 17:30] VITALS: PULSE 109; O2SAT 95
--- NOTE | 2023-10-18 17:30 | ECG_ITS ---
The [facility] Test Date: 2023-10-18 Pat Name: CAROLINA GUTIERREZ Department: Room: - Gender: Female Seed Service Advisor: : 1960 Requested By: ALPA BENAVIDES Order Number: [id number] Reading MD: CALDERON LOUIS Measurements Intervals [place] Rate: 103 P: 60 AL: 150 QRS: 13 QRSD: 92 T: 100 QT: 320 QTc: 380 Interpretive Statements 1120 Sinus tachycardia [address] depression 7500 Abnormal QRS-T angle 9140 abnormal rhythm ECG t Electronically Signed On 10-18-2023 17:53:23 EDT by CALDERON LOUIS
[2023-10-18 17:31] VITALS: BP 182/98; PULSE 100; O2SAT 93
--- NOTE | 2023-10-18 17:33 | ED_ITS ---
HPI HPI - General Adult General Chief complaint: Shortness of Breath/Dyspnea Stated complaint: critical lab-poss blood clot Time Seen by Provider: 10/18/23 17:16 Source: patient Mode of arrival: walk-in Limitations: no limitations History of Present Illness HPI narrative: Patient is a 62-year-old female presents to the ER with concerns of shortness of breath and cough for the past 4 weeks, she has been on multiple rounds of steroid and antibiotic. Patient states she saw her family doctor again today with outpatient chest x-ray and D-dimer blood order. Patient has prior history of PE with COVID illness a few years ago, has not been on Xarelto for a few years. Patient reports no pain or discomfort. She is currently getting worked up for a shoulder revision on the left with the [facility], states she had surgery recently in May 2023 for left shoulder replacement. Patient denies any pain in her back, chest or arms. known prior history of thoracic spine compression fracture. recent Medications: Prednisone 20mg 09/20, MDP 09/26, Levoflaxicin 750mg 09/03 Azithromycin 09/13, doxycycline 09/26 clindamycin 300mg 10/04 Related Data Home Medications ?Medication ?Instructions ?Recorded ?Confirmed albuterol sulfate 90 mcg/actuation 2 inh inhalation Q8H PRN shortness 10/18/23 10/18/23 aerosol inhaler of breath or wheezing celecoxib 200 mg capsule 200 mg PO Q12H 10/18/23 10/18/23 ipratropium 0.5 mg-albuterol 3 mg 3 ml inhalation Q8H PRN shortness 10/18/23 10/18/23 (2.5 mg base)/3 mL nebulization of breath soln levothyroxine 137 mcg tablet 137 mcg PO DAILY 10/18/23 10/18/23 montelukast 10 mg tablet 10 mg PO BID 10/18/23 10/18/23 pantoprazole 40 mg tablet,delayed 40 mg PO DAILY 10/18/23 10/18/23 release semaglutide 2 mg/dose (8 mg/3 mL) 2 mg subcut .week 10/18/23 10/18/23 subcutaneous pen injector (Ozempic) upadacitinib 15 mg tablet,extended 15 mg PO DAILY 10/18/23 10/18/23 release 24 hr (Rinvoq) verapamil 240 mg tablet,extended 240 mg PO DAILY 10/18/23 10/18/23 release Allergies Allergy/AdvReac Type Severity Reaction Status Date / Time apixaban [From Eliquis] AdvReac Mild Hives Verified 10/18/23 17:23 cephalexin [From Keflex] AdvReac Mild Verified 10/18/23 17:23 Penicillins AdvReac Mild Verified 10/18/23 17:23 Opioid HPI Opioid Management Most Recent Opioid Data: No Data to Display Review of Systems ROS Constitutional Denies: fever or chills Ears, nose, mouth, and throat Denies: throat pain or neck pain Cardiovascular Reports: edema and shortness of breath with exertion; Denies: chest pain or palpitations Respiratory Reports: shortness of breath, cough and chest congestion; Denies: wheezing Gastrointestinal Denies: abdominal pain, nausea or vomiting Genitourinary Denies: painful urination Musculoskeletal Denies: back pain or neck pain Integumentary/Breast Denies: rash Neurological Denies: headache Psychiatric Denies: anxiety Hematologic/Lymphatic Denies: easy bruising Exam Narrative Exam Narrative: Nurses notes and vital signs reviewed and patient is not hypoxic. General: The patient appears well and in no apparent distress. Patient is resting comfortably on cart. Skin: Warm, dry, no pallor noted. Head: Normocephalic, atraumatic Neck: Supple, trachea mid-line, no tenderness, no lymphadenopathy Eye: Pupils are equal, round and reactive to light, EOMI Ears, Nose, Mouth, and Throat: TM are clear, normal light reflex, oral mucosa is moist, no posterior oropharynx erythema or hypertrophy, uvula is mid-line Cardiovascular: tachycardia Respiratory: Patient is in no distress, no accessory muscle use, lungs are clear to auscultation, no wheezing, rales or rhonchi. Chest Wall: no tenderness Back: non-tender, no CVA tenderness Musculoskeletal: normal ROM with exception of left shoulder. denies joint pain, no erythema or tenderness, Edema in lower legs, minimal pitting edema, no calf tenderness GI: Normal bowel sounds, no tenderness to palpation, no masses appreciated. No rebound, guarding, or rigidity noted. Neurological: A&O x4 Psychiatric: Cooperative Constitutional Vital Signs, click to edit/add: Last Vital Signs Temp 98.0 F 10/18/23 17:20 Pulse 100 H 10/18/23 17:31 Resp 23 H 10/18/23 17:31 BP 182/98 H 10/18/23 17:31 Pulse Ox 93 L 10/18/23 17:31 O2 Del Method Room Air 10/18/23 17:20 Course Vital Signs Vital signs: Vital Signs Temperature 98.0 F 10/18/23 17:20 Pulse Rate 113 H 10/18/23 17:20 Respiratory Rate 18 10/18/23 17:20 Blood Pressure 183/87 H 10/18/23 17:20 Pulse Oximetry 95 10/18/23 17:20 Oxygen Delivery Method Room Air 10/18/23 17:20 Temperature 98.0 F 10/18/23 17:20 Pulse Rate 100 H 10/18/23 17:31 Respiratory Rate 23 H 10/18/23 17:31 Blood Pressure 182/98 H 10/18/23 17:31 Pulse Oximetry 93 L 10/18/23 17:31 Oxygen Delivery Method Room Air 10/18/23 17:20 Medical Decision Making [facility] Narrative Medical decision making narrative: Patient presents with over a month of cough, shortness of breath, multiple antibiotics without improvement in symptoms, PCP ordered outpatient chest x-ray and a D-dimer which came back positive and directed to the ER for further evaluation of possible PE given patient's history. Patient agreeable to CTA of the chest with risks and benefits discussed, ancillary labs. Her tachycardia improves at rest and will be given fluid bolus for CTA chest pending baseline lab eval. Pt speaking in full sentences. Shalom Pleurisy or chest pain, denies back or shoulder pain. Current heart rate improved at rest 153/71, heart rate 98 bpm.CTA of the chest was negative for PE.Patient has no calf pain or discomfort.Respiratory panel still pending. Discussed CT of the chest.Speaking in full sentences. We discussed her symptoms at length. She notes that her family doctor has already set her up with a wrecker operator specialist and an lawn and garden technician with appointments in the coming month, she has allergy medication that she has been taking before bed which she will start trying to take in the morning, possibly Tylenol PM before bed if needed, she may come back to the ER if her symptoms worsen or new symptoms develop for reevaluation. I would not recommend any additional antibiotics given her recent treatment plan recheck with family doctor on Saturday to discuss symptom management. Lab Data Lab results reviewed: Yes I reviewed the patient's lab results Labs: Lab Results 10/18/23 Range/Units 17:30 WBC 10.2 (4.0-11.0) 10^3/uL RBC 4.08 L (4.20-5.40) 10^6/uL Hgb 11.7 L (12.0-16.0) g/dL Hct 37.0 (36.0-48.0) % MCV 90.7 (81.0-99.0) fL MCH 28.7 (26.7-34.0) pg MCHC 31.6 (29.9-35.2) g/dL RDW 14.5 (11.0-15.0) % Plt Count 270 (150-450) 10^3/uL MPV 9.1 L (9.5-13.5) fL Neut % (Auto) 74.8 (43.0-75.0) % Lymph % (Auto) 16.0 L (20.5-60.0) % Stephenson % (Auto) 5.8 (1.7-12.0) % Eos % (Auto) 1.9 (0.9-7.0) % Baso % (Auto) 0.3 (0.2-2.0) % Neut # (Auto) 7.7 H (1.4-6.5) 10^3/uL Lymph # (Auto) 1.6 (1.2-3.8) 10^3/uL Stephenson # (Auto) 0.6 (0.3-0.8) 10^3/uL Eos # (Auto) 0.2 (0.0-0.7) 10^3/uL Baso # (Auto) 0.0 (0.0-0.1) 10^3/uL Abs Immat Gran (auto) 0.12 H (0.00-0.03) 10^3/uL Imm/Tot Granulo (auto) 1.2 H (0.0-0.5) % PT 10.3 (9.0-11.6) sec INR 0.97 APTT 27.1 (22.3-36.2) sec Sodium 141 (136-145) mmol/L Potassium 3.7 (3.5-5.1) mmol/L Chloride 104 (98-107) mmol/L Carbon Dioxide 29.5 (21.0-32.0) mmol/L Anion Gap 11.2 BUN 14.0 (7.0-18.0) mg/dL Creatinine 0.74 (0.55-1.02) mg/dL Est GFR ( Amer) >60 (>=60) Est GFR (Non-Af Amer) >60 (>=60) BUN/Creatinine Ratio 18.9 Glucose 111 H (74-106) mg/dL Calcium 9.5 (8.5-10.1) mg/dL Troponin I High Sens 4.7 (4.0-51.3) pg/mL NT-Pro-B Natriuret Pep 56.0 (<=900.0) pg/mL Imaging Data CT scan - chest: Radiologist's impression: ITS Impressions Chest CTA 10/18/23 17:59 IMPRESSION: No CT findings to suggest pulmonary embolism. Electronically authenticated by: MAURILIO CH Date: 10/18/2023 18:17 ECG Data Attestation: I personally reviewed and interpreted this ECG as follows: Interpretation: EKG interpretation: Emergency Department physician interpretation, sinus tachycardia 103 , no ectopy, no ST segment elevation, normal axis. Discharge Plan Discharge Stand Alone Forms: Portal Instructions Chief Complaint: Shortness of Breath/Dyspnea Clinical Impression: Cough, Elevated d-dimer Patient Disposition: Home, Self-Care Time of Disposition Decision: 18:43 Condition: Good Prescriptions / Home Meds: No Action albuterol sulfate 90 mcg/actuation HFA aerosol inhaler 2 inh INHALATION Q8H PRN (Reason: shortness of breath or wheezing) celecoxib 200 mg capsule 200 mg PO Q12H ipratropium-albuterol 0.5 mg-3 mg(2.5 mg base)/3 mL solution for nebulization 3 ml INHALATION Q8H PRN (Reason: shortness of breath) levothyroxine 137 mcg tablet 137 mcg PO DAILY montelukast 10 mg tablet 10 mg PO BID pantoprazole 40 mg tablet,delayed release (DR/EC) 40 mg PO DAILY Ozempic 2 mg/dose (8 mg/3 mL) pen injector 2 mg SUBCUT .week Rinvoq 15 mg tablet extended release 24 hr 15 mg PO DAILY verapamil 240 mg tablet extended release 240 mg PO DAILY Print Language: Mosotho Additional Instructions: call pcp saturday for follow up.. keep appt with pulmonology and lawn and garden technician. Referrals: ALPA BENAVIDES [Primary Care Provider] - As soon as possible
[2023-10-18 17:38] LABS: Basophils Percent Auto 0.3 % (0.2-2.0); Eosinophils Absolute Auto 0.2 10^3/uL (0.0-0.7); Eosinophils Percent Auto 1.9 % (0.9-7.0); Hemoglobin 11.7 g/dL (12.0-16.0); Immature Granulocytes Abs Auto 0.12 10^3/uL (0.00-0.03); Immature Granulocytes Pct Auto 1.2 % (0.0-0.5); Lymphocytes Absolute Auto 1.6 10^3/uL (1.2-3.8); Mean Corpuscular HGB Conc 31.6 g/dL (29.9-35.2); Mean Corpuscular Hemoglobin 28.7 pg (26.7-34.0); Mean Corpuscular Volume 90.7 fL (81.0-99.0); Mean Platelet Volume 9.1 fL (9.5-13.5); Monocytes Absolute Auto 0.6 10^3/uL (0.3-0.8); Monocytes Percent Auto 5.8 % (1.7-12.0); Neutrophils Absolute Auto 7.7 10^3/uL (1.4-6.5); Neutrophils Percent Auto 74.8 % (43.0-75.0); Platelet Count 270 10^3/uL (150-450); Red Blood Count 4.08 10^6/uL (4.20-5.40); Red Cell Distribution Width 14.5 % (11.0-15.0); White Blood Count 10.2 10^3/uL (4.0-11.0)
[2023-10-18 17:54] LABS: INR 0.97; Partial Thromboplastin Time 27.1 sec (22.3-36.2); Prothrombin Time 10.3 sec (9.0-11.6)
[2023-10-18 17:59] LABS: Anion Gap 11.2; BUN Creatinine Ratio 18.9; Calcium 9.5 mg/dL (8.5-10.1); Carbon Dioxide 29.5 mmol/L (21.0-32.0); Chloride 104 mmol/L (98-107); Estimated GFR (African America >60 (>=60); Estimated GFR (Non-African Ame >60 (>=60); Glucose 111 mg/dL (74-106); Potassium 3.7 mmol/L (3.5-5.1); Sodium 141 mmol/L (136-145); Troponin I High Sensitivity 4.7 pg/mL (4.0-51.3)
--- NOTE | 2023-10-18 17:59 | CT_ITS ---
The [address] [address] Patient Name: CAROLINA GUTIERREZ MRN: [id number] date: 1960 Sex: F Assigned Patient Location: ER Current Patient Location: ER Accession/Order Number: [id number] Exam Date: 10/18/2023 17:52 Report Date: 10/18/2023 18:17 At the request of: ANDREW AGUILERA Procedure: CT angio chest EXAM: CT angio chest HISTORY: r/o pe COMPARISON: Correlation made with CT chest on 06/14/2023. TECHNIQUE: CT angiography of the chest was performed without IV contrast followed by IV contrast, including 3D post processing CTA image reconstruction. CT dose reduction technique was used, including Automated Exposure Control. IV CONTRAST: 100 mL Omnipaque 350 FINDINGS: Diagnostic quality: Adequate There is no evidence for pulmonary embolism. The heart is not enlarged. There is no pericardial effusion. There are no abnormally enlarged hilar or mediastinal lymph nodes. Mild coronary calcification. The central tracheobronchial tree is clear. There is mild bibasilar subsegmental atelectasis. There is no pleural effusion. No consolidation. No acute process identified in the visualized upper abdomen. No destructive osseous changes are seen. Chronic compression deformities of T6 and T9 appear similar from 06/14/2023. There is a left shoulder arthroplasty. Fatty atrophy of the left shoulder girdle musculature is noted asymmetrically compared to the right. CT/CT angio chest IMPRESSION: No CT findings to suggest pulmonary embolism. Electronically authenticated by: MAURILIO CH Date: 10/18/2023 18:17
[2023-10-18 18:09] LABS: Adenovirus NOT DETECTED (NOT DETECTE); Bordetella parapertussis NOT DETECTED (NOT DETECTE); Coronavirus 229E NOT DETECTED (NOT DETECTE); Coronavirus HKU1 NOT DETECTED (NOT DETECTE); Coronavirus NL63 NOT DETECTED (NOT DETECTE); Coronavirus OC43 NOT DETECTED (NOT DETECTE); Human Metapneumovirus NOT DETECTED (NOT DETECTE); Human Rhinovirus/Enterovirus NOT DETECTED (NOT DETECTE); Influenza A NOT DETECTED (NOT DETECTE); Influenza B NOT DETECTED (NOT DETECTE); Mycoplasma pneumoniae NOT DETECTED (NOT DETECTE); Parainfluenza Virus 1 NOT DETECTED (NOT DETECTE); Parainfluenza Virus 2 NOT DETECTED (NOT DETECTE); Parainfluenza Virus 3 NOT DETECTED (NOT DETECTE); Parainfluenza Virus 4 NOT DETECTED (NOT DETECTE); Respiratory Syncytial Virus NOT DETECTED (NOT DETECTE); SARS-CoV-2 NOT DETECTED (NOT DETECTE)
[2023-10-18 18:29] VITALS: BP 141/64; PULSE 103; O2SAT 74
[2023-10-18 18:30] VITALS: BP 153/71; PULSE 103; O2SAT 98
== END 2023-10-18 19:20 | disposition home or self-care (01) ==
PROVIDERS: Personal Emergency Response Attendant; Emergency Provider Emergency Medicine; PCP Family Medicine
DX: R05.9 Cough, unspecified (principal); R79.1 Abnormal coagulation profile; R06.02 Shortness of breath; Z86.16 Personal history of COVID-19; Z86.711 Personal history of pulmonary embolism; Z79.899 Other long term (current) drug therapy; Z79.890 Hormone replacement therapy; Z20.822 Contact with and (suspected) exposure to COVID-19
CPT/HCPCS: 0202U; 36415; 71046; 71275; 80048; 83880; 84484; 85025; 85378; 85610; 85730; 93005; 99285; Q9967

== ENCOUNTER 2023-11-08 08:09 | Outpatient (OUT) | payer BC, SELFPAY ==
[2023-11-08 09:49] LABS: Creatinine Urine Random 139.59 mg/dL (20.00-300.00); Microalbum Creatinine Ratio Ur 9.3 mg/g (0.0-29.9); Microalbumin Urine Random 1.3 mg/dL (<=30.0)
[2023-11-08 10:17] LABS: Alanine Aminotransferase 22 U/L (14-59); Albumin Globulin Ratio 0.8; Alkaline Phosphatase 78 U/L (46-116); Anion Gap 12.3; Aspartate Amino Transferase 17 U/L (15-37); Bilirubin Total 0.4 mg/dL (0.2-1.0); Calcium 8.7 mg/dL (8.5-10.1); Carbon Dioxide 27.6 mmol/L (21.0-32.0); Chloride 106 mmol/L (98-107); Chol HDL Ratio 3.2; Cholesterol 199 mg/dL (<=200); Estimated GFR (African America >60 (>=60); Estimated GFR (Non-African Ame >60 (>=60); Globulin 3.7 g/dL; Glucose 86 mg/dL (74-106); HDL Cholesterol 63 mg/dL (40-60); Potassium 3.9 mmol/L (3.5-5.1); Sodium 142 mmol/L (136-145); Total Protein 6.7 g/dL (6.4-8.2); Triglycerides 58 mg/dL (<=150); VLDL CHOLESTEROL 11.6 mg/dL
== END 2023-11-08 08:10 | disposition home or self-care (01) ==
LOC: LAB 08:11
PROVIDERS: PCP Family Medicine
DX: E78.5 Hyperlipidemia, unspecified (principal); E11.9 Type 2 diabetes mellitus without complications
CPT/HCPCS: 36415; 80053; 80061; 82043; 82570

== ENCOUNTER 2023-11-15 13:02 | Outpatient (OUT) | payer BC, SELFPAY ==
--- NOTE | 2023-11-15 13:00 | RT_ITS ---
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 Findings were considered accurate and reproducible. Both pre- and post-bronchodilator values utilized for spirometry. Spirometry (based on pre-bronchodilator values): -FEV1/FVC: Normal @ 91% -FEV1: Mildly reduced @ 77% -FVC: Moderately reduced @ 64% -There is no significant bronchodilator response. Lung volumes by plethysmography: -RV: Normal @ 98% -TLC: Normal @ 88% Diffusion capacity: -DLCO: High normal @ 136% when corrected for Hb 11.9g/dL Flow-volume loop: -Moderate restrictive pattern Prior PFT from 12/04/2016 is available for comparison. -FEV1/FVC: 86% -FEV1: 71% -FVC: 64% -T% -DLCO: 112% Impressions: -Spirometry has a moderate restrictive pattern with normal lung volumes and normal diffusion capacity. which is consistent with an obesity pattern (stated BMI 45.1). Essentially no change from prior PFT 12/04/2016. Clinical correlation required. Electronically Signed On 11-18-2023 7:08:00 EDT by Danny Dupree
[2023-11-15 13:14] LABS: Hemoglobin 11.9 g/dL (12.0-16.0)
[2023-11-15] MEDS: ALBUTEROL SULFATE 2.5 MG/3 ML VIAL NEB IH (13:45)
== END 2023-11-15 13:03 | disposition home or self-care (01) ==
LOC: CARD 13:02
PROVIDERS: PCP Family Medicine; Visit Provider Internal Medicine
DX: J45.50 Severe persistent asthma, uncomplicated (principal)
CPT/HCPCS: 36415; 85018; 94060; 94726; 94729

== ENCOUNTER 2023-11-15 14:09 | Outpatient (OUT) | payer BC, SELFPAY ==
--- NOTE | 2023-11-15 14:11 | XR_ITS ---
[address] [address] Patient Name: CAROLINA GUTIERREZ MRN: [id number] date: 1960 Sex: F Assigned Patient Location: [facility] Current Patient Location: [facility] Accession/Order Number: [id number] Exam Date: 11/15/2023 14:20 Report Date: 11/15/2023 14:56 At the request of: MERLINE Franco APLING Procedure: XR DEXA axial skeleton EXAMINATION: XR DEXA axial skeleton, 11/15/2023 2:20 PM EDT HISTORY: Osteoporosis M81.0 COMPARISON: 2010 TECHNIQUE: Dual-energy X-ray absorptiometry (DEXA) bone density study performed for the axial skeleton. HISTORY: Osteoporosis M81.0 FINDINGS: Bone mineral density AP spine L1-L4 measures 1.238 g/sq cm. T score 0.5. WHO classification: Normal. The lowest bone mineral density right femoral neck measuring 0.713 g/sq cm. T score -2.3. WHO classification: Osteopenia. XR/XR DEXA axial skeleton IMPRESSION: Osteopenia. Moderate fracture risk Electronically authenticated by: KARSON GARCIA Date: 11/15/2023 14:56
== END 2023-11-15 14:10 | disposition home or self-care (01) ==
LOC: RAD 14:09
PROVIDERS: PCP Family Medicine; Visit Provider Nurse Practitioner Family
DX: J45.50 Severe persistent asthma, uncomplicated (principal); M81.0 Age-related osteoporosis without current pathological fracture; M85.80 Other specified disorders of bone density and structure, unspecified site
CPT/HCPCS: 36415; 77080; 85018; 94060; 94726; 94729

== ENCOUNTER 2024-05-14 15:19 | Observation (INO) | payer BC, SELFPAY ==
--- NOTE | 2024-05-14 15:20 | ED_ITS ---
<Statement entered by Robert Abdi MD - 05/14/24 18:11> Chart was sent to my inbox for administrative and group management purposes. I was the attending physicians working during the patients hospital course. The patient was seen and managed independently by the MLP. I did not personally see or evaluate this patient, nor was I involved in the patient medical decision making process or plans of care. Pt was dispositioned by the MLP with complete independence. I was available for consultation should the MLP request during this patients ED stay. This documentation has been reviewed and approved. HPI HPI - General Adult General Chief complaint: Skin/Abscess/Foreign Body Stated complaint: rash Time Seen by Provider: 05/14/24 15:19 Related Data Home Medications ?Medication ?Instructions ?Recorded ?Confirmed albuterol sulfate 90 mcg/actuation 2 inh inhalation Q8H PRN shortness 10/18/23 10/18/23 aerosol inhaler of breath or wheezing celecoxib 200 mg capsule 200 mg PO Q12H 10/18/23 10/18/23 ipratropium 0.5 mg-albuterol 3 mg 3 ml inhalation Q8H PRN shortness 10/18/23 10/18/23 (2.5 mg base)/3 mL nebulization of breath soln levothyroxine 137 mcg tablet 137 mcg PO DAILY 10/18/23 10/18/23 montelukast 10 mg tablet 10 mg PO BID 10/18/23 10/18/23 pantoprazole 40 mg tablet,delayed 40 mg PO DAILY 10/18/23 10/18/23 release semaglutide 2 mg/dose (8 mg/3 mL) 2 mg subcut .week 10/18/23 10/18/23 subcutaneous pen injector (Ozempic) upadacitinib 15 mg tablet,extended 15 mg PO DAILY 10/18/23 10/18/23 release 24 hr (Rinvoq) verapamil 240 mg tablet,extended 240 mg PO DAILY 10/18/23 10/18/23 release Allergies Allergy/AdvReac Type Severity Reaction Status Date / Time apixaban (From Eliquis) AdvReac Mild Hives Verified 10/18/23 17:23 cephalexin (From Keflex) AdvReac Mild Verified 10/18/23 17:23 Penicillins AdvReac Mild Verified 10/18/23 17:23 Opioid HPI Opioid Management Most Recent Opioid Data: No Data to Display PFSH PFSH Social History Little interest or pleasure in doing things: not at all Feeling down, depressed, or hopeless: not at all Exam Constitutional Vital Signs, click to edit/add: Last Vital Signs Temp 98.2 F 05/14/24 15:25 Pulse 88 05/14/24 15:25 Resp 18 05/14/24 15:25 BP 141/113 H 05/14/24 15:25 Pulse Ox 95 05/14/24 15:25 O2 Del Method Room Air 05/14/24 15:25 Course Vital Signs Vital signs: Vital Signs Temperature 98.2 F 05/14/24 15:25 Pulse Rate 88 05/14/24 15:25 Respiratory Rate 18 05/14/24 15:25 Blood Pressure 141/113 H 05/14/24 15:25 Pulse Oximetry 95 05/14/24 15:25 Oxygen Delivery Method Room Air 05/14/24 15:25 Temperature 98.2 F 05/14/24 15:25 Pulse Rate 88 05/14/24 15:25 Respiratory Rate 18 05/14/24 15:25 Blood Pressure 141/113 H 05/14/24 15:25 Pulse Oximetry 95 05/14/24 15:25 Oxygen Delivery Method Room Air 05/14/24 15:25 Medical Decision Making MDM Narrative Medical decision making narrative: Labs, blood cultures and IV were ordered for the patient. Her culture is susceptible to gentamicin and vancomycin only. I discussed this with Dr. Aviles, patient will be admitted for IV gentamicin which can be dosed daily for outpatient management. She will need likely PICC line or midline placement and insurance approval for JOHN versus home dosing. She will need to be admitted for this for observation. She is stable at time of admission to Dr. Aviles. SUPERVISED APC VISIT, PHYSICIAN ATTESTATION: Based on the medical record the care appears appropriate. ? Medical Records Medical records reviewed: Yes I reviewed the patient's medical records Lab Data Lab results reviewed: Yes I reviewed the patient's lab results Labs: Lab Results 05/14/24 Range/Units 15:35 WBC 11.9 H (4.0-11.0) 10^3/uL RBC 3.74 L (4.20-5.40) 10^6/uL Hgb 10.6 L (12.0-16.0) g/dL Hct 33.5 L (36.0-48.0) % MCV 89.6 (81.0-99.0) fL MCH 28.3 (26.7-34.0) pg MCHC 31.6 (29.9-35.2) g/dL RDW 14.6 (11.0-15.0) % Plt Count 364 (150-450) 10^3/uL MPV 9.1 L (9.5-13.5) fL Neut % (Auto) 72.5 (43.0-75.0) % Lymph % (Auto) 16.3 L (20.5-60.0) % [place] % (Auto) 7.3 (1.7-12.0) % Eos % (Auto) 2.3 (0.9-7.0) % Baso % (Auto) 0.3 (0.2-2.0) % Neut # (Auto) 8.6 H (1.4-6.5) 10^3/uL Lymph # (Auto) 1.9 (1.2-3.8) 10^3/uL [place] # (Auto) 0.9 H (0.3-0.8) 10^3/uL Eos # (Auto) 0.3 (0.0-0.7) 10^3/uL Baso # (Auto) 0.0 (0.0-0.1) 10^3/uL Abs Immat Gran (auto) 0.16 H (0.00-0.03) 10^3/uL Imm/Tot Granulo (auto) 1.3 H (0.0-0.5) % ESR 85 H (<=30) mm/hr VBG pH 7.425 (7.330-7.430) VBG pCO2 47.8 (40.0-52.0) mmHg Discharge Plan Discharge Chief Complaint: Skin/Abscess/Foreign Body Patient Disposition: Admitted as Observation Time of Disposition Decision: 16:15 Prescriptions / Home Meds: No Action albuterol sulfate 90 mcg/actuation HFA aerosol inhaler 2 inh INHALATION Q8H PRN (Reason: shortness of breath or wheezing) celecoxib 200 mg capsule 200 mg PO Q12H ipratropium-albuterol 0.5 mg-3 mg(2.5 mg base)/3 mL solution for nebulization 3 ml INHALATION Q8H PRN (Reason: shortness of breath) levothyroxine 137 mcg tablet 137 mcg PO DAILY montelukast 10 mg tablet 10 mg PO BID pantoprazole 40 mg tablet,delayed release (DR/EC) 40 mg PO DAILY Ozempic 2 mg/dose (8 mg/3 mL) pen injector 2 mg SUBCUT .week Rinvoq 15 mg tablet extended release 24 hr 15 mg PO DAILY verapamil 240 mg tablet extended release 240 mg PO DAILY Print Language: Kazakh Referrals: ALPA BENAVIDES [Primary Care Provider] - 1 week
[2024-05-14 15:25] VITALS: BP 141/113; PULSE 88; TEMP 36.8; O2SAT 95; BMI 41.9
[2024-05-14 15:53] LABS: PCO2 VBG 47.8 mmHg (40.0-52.0); pH VBG 7.425 (7.330-7.430)
[2024-05-14 15:54] LABS: Basophils Percent Auto 0.3 % (0.2-2.0); Eosinophils Absolute Auto 0.3 10^3/uL (0.0-0.7); Eosinophils Percent Auto 2.3 % (0.9-7.0); Hematocrit 33.5 % (36.0-48.0); Hemoglobin 10.6 g/dL (12.0-16.0); Immature Granulocytes Abs Auto 0.16 10^3/uL (0.00-0.03); Immature Granulocytes Pct Auto 1.3 % (0.0-0.5); Lymphocytes Absolute Auto 1.9 10^3/uL (1.2-3.8); Lymphocytes Percent Auto 16.3 % (20.5-60.0); Mean Corpuscular HGB Conc 31.6 g/dL (29.9-35.2); Mean Corpuscular Hemoglobin 28.3 pg (26.7-34.0); Mean Corpuscular Volume 89.6 fL (81.0-99.0); Mean Platelet Volume 9.1 fL (9.5-13.5); Monocytes Absolute Auto 0.9 10^3/uL (0.3-0.8); Monocytes Percent Auto 7.3 % (1.7-12.0); Neutrophils Absolute Auto 8.6 10^3/uL (1.4-6.5); Neutrophils Percent Auto 72.5 % (43.0-75.0); Platelet Count 364 10^3/uL (150-450); Red Blood Count 3.74 10^6/uL (4.20-5.40); Red Cell Distribution Width 14.6 % (11.0-15.0); White Blood Count 11.9 10^3/uL (4.0-11.0)
[2024-05-14 16:04] LABS: Erythrocyte Sedimentation Rate 85 mm/hr (<=30)
[2024-05-14 16:15] LABS: Alanine Aminotransferase 14 U/L (14-59); Albumin Globulin Ratio 0.8; Albumin Level 3.1 g/dL (3.4-5.0); Alkaline Phosphatase 103 U/L (46-116); Anion Gap 15.7; Aspartate Amino Transferase 17 U/L (15-37); BUN Creatinine Ratio 15.7; Bilirubin Total 0.6 mg/dL (0.2-1.0); C Reactive Protein 2.59 mg/dL (<=0.50); Calcium 9.5 mg/dL (8.5-10.1); Chloride 103 mmol/L (98-107); Estimated GFR (African America >60 (>=60 mL/min/1.73m^2); Estimated GFR (Non-African Ame >60 (>=60 mL/min/1.73m^2); Globulin 4.1 g/dL; Glucose 95 mg/dL (74-106); Potassium 3.7 mmol/L (3.5-5.1); Sodium 145 mmol/L (136-145); Total Protein 7.2 g/dL (6.4-8.2)
[2024-05-14 16:22] LABS: Lactate/Lactic Acid 2.2 mmol/L (0.4-2.0)
[2024-05-14] MEDS: GENTAMICIN SULFATE 300 MG in 0.9 % SODIUM CHLORIDE 100 ML 215 MG IV (16:31)
[2024-05-14 17:53] VITALS: BMI 41.1
--- NOTE | 2024-05-14 19:13 | P.HP_ITS ---
HPI H&P: HPI History of Present Illness Chief complaint: rash IMPETIGO MRSA Narrative: Patient [facility] for rash underneath her breast. Culture was obtained. Final culture returned as MRSA which is resistant to everything except vancomycin and gentamicin. Patient felt feverish at home. She also has several joint replaced. Risk of sepsis. I saw patient up in the medical surgical floor, she was resting comfortably in bed, no complaints currently. Encouraged her if she has any symptoms could be related to fever she is to let the nurses know as soon as possible Opioid HPI Opioid Management Most Recent Pain and Opioid Data: Last Pain Assessment 05/14/24 18:00 Last ORT Total Score 0 05/14/24 17:53 05/14/24 Last ORT Risk Category Low Risk 05/14/24 17:53 05/14/24 Review of Systems ROS Status of ROS 10 or more systems reviewed and unremark able except as noted in history and below PFSH PFSH Social History Highest level of school completed/degree received: some college, no degree Little interest or pleasure in doing things: not at all Feeling down, depressed, or hopeless: not at all Meds Home Medications and Allergies Home Medications ?Medication ?Instructions ?Recorded ?Confirmed ?Type ipratropium 0.5 mg-albuterol 3 mg 3 ml inhalation Q8H PRN shortness 10/18/23 05/14/24 History (2.5 mg base)/3 mL nebulization of breath soln levothyroxine 137 mcg tablet 137 mcg PO DAILY 10/18/23 05/14/24 History montelukast 10 mg tablet 10 mg PO BID 10/18/23 05/14/24 History pantoprazole 40 mg tablet,delayed 40 mg PO DAILY 10/18/23 05/14/24 History release semaglutide 2 mg/dose (8 mg/3 mL) 2 mg subcut .week 10/18/23 05/14/24 History subcutaneous pen injector (Ozempic) cholestyramine (with sugar) 4 gram 1 ea PO BID 05/14/24 05/14/24 History powder for susp in a packet fluticasone 500 mcg-salmeterol 50 1 inh inhalation Q12H 05/14/24 05/14/24 History mcg/dose blistr powdr for inhalation fluticasone propionate 50 1 spray intranasal .qd 05/14/24 05/14/24 History mcg/actuation nasal spray,suspension furosemide 20 mg tablet 20 mg PO .qd 05/14/24 05/14/24 History tiotropium bromide 1.25 2 puff inhalation Q24H 05/14/24 05/14/24 History mcg/actuation mist for inhalation (Spiriva Respimat) Allergies Allergy/AdvReac Type Severity Reaction Status Date / Time apixaban (From Eliquis) AdvReac Mild Hives Verified 10/18/23 17:23 cephalexin (From Keflex) AdvReac Mild Verified 10/18/23 17:23 Penicillins AdvReac Mild Verified 10/18/23 17:23 Exam Constitutional Vital Signs, click to edit/add: Last Vital Signs Temp 98.2 F 05/14/24 15:25 Pulse 88 05/14/24 15:25 Resp 18 05/14/24 15:25 BP 141/113 H 05/14/24 15:25 Pulse Ox 95 05/14/24 15:25 O2 Del Method Room Air 05/14/24 17:53 Documenting provider has reviewed patient's vital signs: yes Common normals: no apparent distress HENMT Common normals: normocephalic Chest Common normals: inspection of chest abnormal (Rash under breast consistent with acute bacterial cellulitis.) Respiratory Common normals: normal respiratory effort and no retractions Cardio Common normals: no JVD and regular rate Extremity Common normals: abnormal to inspection (Evidence of recent surgery to the left shoulder with drainage) Results Labs Labs: Short CBC 05/14/24 Range/Units 15:35 WBC 11.9 H (4.0-11.0) 10^3/uL Hgb 10.6 L (12.0-16.0) g/dL Hct 33.5 L (36.0-48.0) % Plt Count 364 (150-450) 10^3/uL BMP 05/14/24 15:35 Sodium 145 Potassium 3.7 Chloride 103 Carbon Dioxide 30.0 BUN 14.0 Creatinine 0.89 Glucose 95 Calcium 9.5 Liver Function 05/14/24 Range/Units 15:35 Total Bilirubin 0.6 (0.2-1.0) mg/dL AST 17 (15-37) U/L ALT 14 (14-59) U/L Alkaline Phosphatase 103 (46-116) U/L Albumin 3.1 L (3.4-5.0) g/dL ABG ABG results: 05/14/24 15:35 VBG pH 7.425 VBG pCO2 47.8 Assessment and Plan Assessment and Plan (1) Methicillin resistant Staphylococcus aureus infection: (2) Cough: (3) Elevated d-dimer: (4) Impetigo: Plan Admission findings: Patient with uncontrolled hypertension, leukocytosis, lactic acidosis, elevated CRP secondary to acute MRSA with resistant organism to the point of only sensitive to gentamicin and vancomycin. Patient with feverish symptoms admitted for workup and treatment of same, high risk for sepsis and patient with several joints replaced. Acute cellulitis in the anterior chest secondary to MRSA as outlined above-start patient on gentamicin tonight. PICC line to be placed. She would likely require 2 weeks of IV antibiotics. Leukocytosis secondary to above-monitor daily Prediabetes mellitus placing the patient at risk for immune deficiency complicating the treatment for the infection. Monitor sugar in a.m., may need sliding scale Peripheral edema bilateral lower extremities consistent with venous edema. Asthma-maintain home medications GERD-continue with home medications Hypothyroidism-continue with home medications Admission status: Patient admitted for IV antibiotic initiation. Blood cultures obtained. Monitor labs overnight. If tolerating antibiotics likely discharge to home with outpatient IV antibiotics. Medically necessary treatment likely to span 1 midnight
[2024-05-14 19:15] VITALS: BP 110/71; PULSE 82; TEMP 36.6; O2SAT 90
[2024-05-14 19:48] VITALS: O2SAT 93
[2024-05-14] MEDS: MONTELUKAST SODIUM 10 MG TABLET PO (21:10)
[2024-05-14 23:15] VITALS: BP 101/63; PULSE 101; TEMP 36.8; O2SAT 90
[2024-05-15 03:00] VITALS: BP 96/59; PULSE 84; TEMP 36.8; O2SAT 91
[2024-05-15] MEDS: LEVOTHYROXINE SODIUM 25 MCG TABLET PO (05:36)
[2024-05-15] MEDS: LEVOTHYROXINE SODIUM 112 MCG TABLET PO (05:36)
--- NOTE | 2024-05-15 05:41 | P.DS_ITS ---
DS: Providers Provider Date of admission: 05/14/24 16:50 Primary care physician: ALPA BENAVIDES DS: Diagnosis Discharge Diagnosis (1) Methicillin resistant Staphylococcus aureus infection: (2) Cough: (3) Elevated d-dimer: (4) Impetigo: Plan Admission findings: Patient with uncontrolled hypertension, leukocytosis, lactic acidosis, elevated CRP secondary to acute MRSA with resistant organism to the point of only sensitive to gentamicin and vancomycin. Patient with feverish symptoms admitted for workup and treatment of same, high risk for sepsis and patient with several joints replaced. Acute cellulitis in the anterior chest secondary to MRSA as outlined above-start patient on gentamicin tonight. PICC line to be placed. She would likely require 2 weeks of IV antibiotics. Leukocytosis secondary to above-monitor daily Prediabetes mellitus placing the patient at risk for immune deficiency complicating the treatment for the infection. Monitor sugar in a.m., may need sliding scale Peripheral edema bilateral lower extremities consistent with venous edema. Asthma-maintain home medications GERD-continue with home medications Hypothyroidism-continue with home medications Admission status: Patient admitted for IV antibiotic initiation. Blood cultures obtained. Monitor labs overnight. If tolerating antibiotics likely discharge to home with outpatient IV antibiotics. Medically necessary treatment likely to span 1 midnight ? DS: Summary Hospital Course Hospital Course: Patient was being treated as an outpatient for cellulitis just under the breast area, cultures came back as MRSA resistant to anything oral, only sensitive to gentamicin and vancomycin. With vancomycin dosing being frequent, gentamicin dosing was able to be changed to once a day. She was admitted for IV therapy to make sure she tolerated that. Did well overnight, white blood cell count is improving she states that already feels better. At this point should be discharged to home in improving condition. Medications see list. Follow-up with your PCP and dermatology. Within the next week. Medication will be the gentamicin IV once a day, trying to set this up for you through home health or through the [facility] area here at the hospital. Status at Discharge Overall status at discharge: patient is not back to baseline Time Spent with Patient Time attestation: Total time spent providing and/or coordinating discharge services: Time spent: greater than 30 minutes Exam Constitutional Vital Signs, click to edit/add: Last Vital Signs Temp 98.2 F 05/15/24 03:00 Pulse 84 05/15/24 03:00 Resp 18 05/15/24 03:00 BP 96/59 05/15/24 03:00 Pulse Ox 91 L 05/15/24 03:00 O2 Del Method Room Air 05/15/24 03:00 Documenting provider has reviewed patient's vital signs: yes Common normals: no apparent distress HENMT Common normals: normocephalic Chest Common normals: inspection of chest abnormal (Rash under breast consistent with acute bacterial cellulitis. -Improved) Respiratory Common normals: normal respiratory effort and no retractions Cardio Common normals: no JVD and regular rate Extremity Common normals: abnormal to inspection (Evidence of recent surgery to the left shoulder with drainage) DS: Data Data Completed and Pending Labs on day of discharge: Labs from last 24 hours 05/14/24 05/14/24 19:21 15:35 WBC 11.9 H RBC 3.74 L Hgb 10.6 L Hct 33.5 L MCV 89.6 MCH 28.3 MCHC 31.6 RDW 14.6 Plt Count 364 MPV 9.1 L Neut % (Auto) 72.5 Lymph % (Auto) 16.3 L [place] % (Auto) 7.3 Eos % (Auto) 2.3 Baso % (Auto) 0.3 Neut # (Auto) 8.6 H Lymph # (Auto) 1.9 [place] # (Auto) 0.9 H Eos # (Auto) 0.3 Baso # (Auto) 0.0 Abs Immat Gran (auto) 0.16 H Imm/Tot Granulo (auto) 1.3 H ESR 85 H VBG pH 7.425 VBG pCO2 47.8 Sodium 145 Potassium 3.7 Chloride 103 Carbon Dioxide 30.0 Anion Gap 15.7 BUN 14.0 Creatinine 0.89 Est GFR ( Amer) >60 Est GFR (Non-Af Amer) >60 BUN/Creatinine Ratio 15.7 Glucose 95 Lactate 2.0 2.2 H* Calcium 9.5 Total Bilirubin 0.6 AST 17 ALT 14 Alkaline Phosphatase 103 C-Reactive Protein 2.59 H Total Protein 7.2 Albumin 3.1 L Globulin 4.1 Albumin/Globulin Ratio 0.8 Discharge Plan Discharge Disposition: Home Health Service Condition: Good Discharge Medications: New gentamicin in NaCl (iso-osm) 100 mg/100 mL piggyback 300 mg IV Q24H 14 Days Continued ipratropium-albuterol 0.5 mg-3 mg(2.5 mg base)/3 mL solution for nebulization 3 ml INHALATION Q8H PRN (Reason: shortness of breath) levothyroxine 137 mcg tablet 137 mcg PO DAILY montelukast 10 mg tablet 10 mg PO BID pantoprazole 40 mg tablet,delayed release (DR/EC) 40 mg PO DAILY Ozempic 2 mg/dose (8 mg/3 mL) pen injector 2 mg SUBCUT .week cholestyramine (with sugar) 4 gram powder in packet 1 ea PO BID fluticasone propion-salmeterol 500-50 mcg/dose blister with device 1 inh INHALATION Q12H fluticasone propionate 50 mcg/actuation spray,suspension 1 spray INTRANASAL .qd furosemide 20 mg tablet 20 mg PO .qd Spiriva Respimat 1.25 mcg/actuation mist 2 puff INHALATION Q24H Print Language: Yakut Forms: Portal Instructions
[2024-05-15 05:57] LABS: Basophils Percent Auto 0.5 % (0.2-2.0); Eosinophils Absolute Auto 0.3 10^3/uL (0.0-0.7); Eosinophils Percent Auto 3.2 % (0.9-7.0); Hematocrit 29.7 % (36.0-48.0); Hemoglobin 9.2 g/dL (12.0-16.0); Immature Granulocytes Pct Auto 1.1 % (0.0-0.5); Lymphocytes Absolute Auto 1.5 10^3/uL (1.2-3.8); Lymphocytes Percent Auto 17.1 % (20.5-60.0); Mean Corpuscular Hemoglobin 27.8 pg (26.7-34.0); Mean Corpuscular Volume 89.7 fL (81.0-99.0); Mean Platelet Volume 9.5 fL (9.5-13.5); Monocytes Absolute Auto 0.7 10^3/uL (0.3-0.8); Monocytes Percent Auto 7.6 % (1.7-12.0); Neutrophils Absolute Auto 6.2 10^3/uL (1.4-6.5); Neutrophils Percent Auto 70.5 % (43.0-75.0); Platelet Count 300 10^3/uL (150-450); Red Blood Count 3.31 10^6/uL (4.20-5.40); Red Cell Distribution Width 14.7 % (11.0-15.0); White Blood Count 8.8 10^3/uL (4.0-11.0)
[2024-05-15 06:06] LABS: Anion Gap 14.2; BUN Creatinine Ratio 19.4; C Reactive Protein 2.17 mg/dL (<=0.50); Calcium 9.3 mg/dL (8.5-10.1); Carbon Dioxide 28.5 mmol/L (21.0-32.0); Chloride 105 mmol/L (98-107); Estimated GFR (African America >60 (>=60 mL/min/1.73m^2); Estimated GFR (Non-African Ame >60 (>=60 mL/min/1.73m^2); Glucose 97 mg/dL (74-106); Potassium 3.7 mmol/L (3.5-5.1); Sodium 144 mmol/L (136-145)
[2024-05-15 06:09] LABS: Gentamicin Random 1.1 ug/mL
[2024-05-15 08:23] VITALS: BP 114/64; PULSE 84; TEMP 36.5; O2SAT 90
--- NOTE | 2024-05-15 08:23 | CM.NOTE ---
Rounds made with Dr. Aviles, discussed with pt culture results and need for IV antibiotics group home. Pt would like to do home antibiotics, PICC line will be placed this AM.
[2024-05-15] MEDS: OMEPRAZOLE 40 MG CAPSULE.DR PO (09:41)
[2024-05-15] MEDS: MONTELUKAST SODIUM 10 MG TABLET PO (09:41)
[2024-05-15] MEDS: FUROSEMIDE 20 MG TABLET PO (09:41)
--- NOTE | 2024-05-15 10:17 | SWNOTE1 ---
Pt will need IV anbx at discharge. Pt will be discharged on Gentamicin Q24. Pt has [employer] for insurance. DAYANARA sent referral to [facility] since they respond quickly and all information and services have to be set by 1:00 for start of care tomorrow. DAYANARA sent referral to [facility] as well for the medication. Referral sent to [facility]. Referral included face sheet, ED note, H&P, labs, and PICC line info. Referral sent to [facility]. Referral included face sheet, ED note, H&P, labs, PICC line info, script, and medication list.
--- NOTE | 2024-05-15 10:22 | SWNOTE1 ---
SW received a call from [facility] and they are able to accept.
--- NOTE | 2024-05-15 10:40 | SWNOTE1 ---
DAYANARA called [facility] and they have received referral and waiting on her benefits to come back. DAYANARA let [facility] know that [facility] has accepted.
[2024-05-15] MEDS: ALBUTEROL SULFATE 2.5 MG/3 ML VIAL NEB IH (11:44)
[2024-05-15] MEDS: IPRATROPIUM BROMIDE 0.5 MG/2.5 ML VIAL.NEB 2.5 MG IH (11:44)
[2024-05-15 11:46] VITALS: O2SAT 96
[2024-05-15] MEDS: GENTAMICIN SULFATE 300 MG in 0.9 % SODIUM CHLORIDE 100 ML 215 MG IV (12:58)
--- NOTE | 2024-05-15 13:51 | SWNOTE1 ---
DAYANARA spoke to Lalito at [facility] and her benfits came back and she is covered 90% until she meets her out of pocket, then fully covered. They have everything they need. Lalito did voice that the nurse has to coordinate with [facility] in regards to her insurance and once he hears back he will call DAYANARA. DAYANARA called back at 1:50pm and spoke to Lalito. He voiced he has not heard back, but does not want to delay discharge and the nurse will have to coordinate with [facility] on the back end. DAYANARA asked if pt has to be the one at the home for delivery and Lalito stated it can be anyone and they will call, it will be 5:00 or later. DAYANARA sent the dc med rec, CRF, and dc summary to [facility].
[2024-05-15] MEDS: FLU VAC QS 2024(6MS UP)CEL/PF 60 MCG/0.5 ML SYRINGE IM (14:09)
--- NOTE | 2024-05-18 11:37 | CM.DCFOLLOWU ---
Person spoke with: Izabella How are you feeling? Better How is your pain? No pain Did you understand your discharge instructions? Yes Do you have any questions about your discharge instructions? No Were you given any prescriptions at discharge? Yes Were you able to get your prescriptions filled? The IV antibiotics arrived and has been coming for teaching. Do you understand how to take your medications as ordered? Yes Do you have any questions about your follow up appointment and do you plan to keep your follow up appointment? No and yes I will go to appt Is there anything else that you would like to discuss? No Questions/Comments/Concerns/Other:
== END 2024-05-15 14:47 | disposition home health service (06) ==
LOC: ER 16:30 → MS 17:02
PROVIDERS: Physician Assistant; Admitting Provider Family Medicine; Emergency Provider Emergency Medicine; PCP Family Medicine; Visit Provider Family Medicine
DX: L03.313 Cellulitis of chest wall (principal); B95.62 Methicillin resistant Staphylococcus aureus infection as the cause of diseases classified elsewhere; D72.829 Elevated white blood cell count, unspecified; R73.03 Prediabetes; R60.9 Edema, unspecified; J45.909 Unspecified asthma, uncomplicated; K21.9 Gastro-esophageal reflux disease without esophagitis; E03.9 Hypothyroidism, unspecified; I10 Essential (primary) hypertension; E87.20 Acidosis, unspecified; R79.82 Elevated C-reactive protein (CRP); Z96.60 Presence of unspecified orthopedic joint implant; Z23 Encounter for immunization; Z79.890 Hormone replacement therapy; Z79.899 Other long term (current) drug therapy
CPT/HCPCS: 36415; 36569; 80048; 80053; 80170; 82800; 83605; 85025; 85652; 86140; 87040; 87070; 87150; 87186; 90674; 94640; 94761; 96365; 96366; 99285; C1887; G0008; G0378; J1580

== ENCOUNTER 2024-05-20 18:40 | Outpatient (REF) | payer BC, SELFPAY ==
[2024-05-20 19:21] LABS: Basophils Percent Auto 0.4 % (0.2-2.0); Eosinophils Absolute Auto 0.5 10^3/uL (0.0-0.7); Eosinophils Percent Auto 4.8 % (0.9-7.0); Hematocrit 35.5 % (36.0-48.0); Immature Granulocytes Abs Auto 0.09 10^3/uL (0.00-0.03); Immature Granulocytes Pct Auto 0.8 % (0.0-0.5); Lymphocytes Absolute Auto 1.3 10^3/uL (1.2-3.8); Mean Corpuscular Hemoglobin 27.4 pg (26.7-34.0); Mean Corpuscular Volume 88.5 fL (81.0-99.0); Mean Platelet Volume 9.8 fL (9.5-13.5); Monocytes Absolute Auto 0.9 10^3/uL (0.3-0.8); Monocytes Percent Auto 8.1 % (1.7-12.0); Neutrophils Absolute Auto 8.2 10^3/uL (1.4-6.5); Neutrophils Percent Auto 73.9 % (43.0-75.0); Platelet Count 300 10^3/uL (150-450); Red Blood Count 4.01 10^6/uL (4.20-5.40); Red Cell Distribution Width 14.4 % (11.0-15.0)
[2024-05-20 19:43] LABS: Erythrocyte Sedimentation Rate 81 mm/hr (<=30)
[2024-05-20 19:45] LABS: C Reactive Protein 3.76 mg/dL (<=0.50); Estimated GFR (African America 51 (>=60 mL/min/1.73m^2); Estimated GFR (Non-African Ame 42 (>=60 mL/min/1.73m^2); Gentamicin Random 9.2 ug/mL
== END 2024-05-20 18:41 | disposition home or self-care (01) ==
LOC: LAB 18:40
PROVIDERS: PCP Family Medicine; Visit Provider Nurse Practitioner
DX: Z51.81 Encounter for therapeutic drug level monitoring (principal); B95.62 Methicillin resistant Staphylococcus aureus infection as the cause of diseases classified elsewhere
CPT/HCPCS: 36415; 80170; 82565; 84520; 85025; 85652; 86140

== ENCOUNTER 2024-06-01 12:56 | Outpatient (REF) | payer BC, SELFPAY ==
[2024-06-01 13:28] LABS: Basophils Absolute Auto 0.1 10^3/uL (0.0-0.1); Basophils Percent Auto 0.6 % (0.2-2.0); Eosinophils Absolute Auto 0.2 10^3/uL (0.0-0.7); Eosinophils Percent Auto 1.8 % (0.9-7.0); Hematocrit 33.5 % (36.0-48.0); Hemoglobin 10.3 g/dL (12.0-16.0); Immature Granulocytes Abs Auto 0.05 10^3/uL (0.00-0.03); Immature Granulocytes Pct Auto 0.5 % (0.0-0.5); Lymphocytes Absolute Auto 2.4 10^3/uL (1.2-3.8); Lymphocytes Percent Auto 25.2 % (20.5-60.0); Mean Corpuscular HGB Conc 30.7 g/dL (29.9-35.2); Mean Corpuscular Hemoglobin 27.3 pg (26.7-34.0); Mean Corpuscular Volume 88.9 fL (81.0-99.0); Mean Platelet Volume 10.4 fL (9.5-13.5); Monocytes Absolute Auto 0.6 10^3/uL (0.3-0.8); Monocytes Percent Auto 6.6 % (1.7-12.0); Neutrophils Absolute Auto 6.3 10^3/uL (1.4-6.5); Neutrophils Percent Auto 65.3 % (43.0-75.0); Platelet Count 385 10^3/uL (150-450); Red Blood Count 3.77 10^6/uL (4.20-5.40); Red Cell Distribution Width 14.9 % (11.0-15.0); White Blood Count 9.7 10^3/uL (4.0-11.0)
[2024-06-01 13:40] LABS: C Reactive Protein <0.50 mg/dL (<=0.50); Estimated GFR (African America >60 (>=60 mL/min/1.73m^2); Estimated GFR (Non-African Ame 59 (>=60 mL/min/1.73m^2); Vancomycin Trough 9.6 ug/mL (5.0-20.0)
== END 2024-06-01 12:57 | disposition home or self-care (01) ==
LOC: LAB 12:56
PROVIDERS: PCP Family Medicine
DX: B95.62 Methicillin resistant Staphylococcus aureus infection as the cause of diseases classified elsewhere (principal)
CPT/HCPCS: 36415; 80202; 82565; 85025; 86140

== ENCOUNTER 2024-06-08 11:57 | Outpatient (REF) | payer BC, SELFPAY ==
[2024-06-08 15:24] LABS: Basophils Percent Auto 0.2 % (0.2-2.0); Eosinophils Absolute Auto 0.1 10^3/uL (0.0-0.7); Eosinophils Percent Auto 1.3 % (0.9-7.0); Hematocrit 33.8 % (36.0-48.0); Hemoglobin 10.3 g/dL (12.0-16.0); Immature Granulocytes Abs Auto 0.05 10^3/uL (0.00-0.03); Immature Granulocytes Pct Auto 0.5 % (0.0-0.5); Lymphocytes Absolute Auto 1.8 10^3/uL (1.2-3.8); Lymphocytes Percent Auto 17.7 % (20.5-60.0); Mean Corpuscular HGB Conc 30.5 g/dL (29.9-35.2); Mean Corpuscular Hemoglobin 26.8 pg (26.7-34.0); Mean Platelet Volume 10.8 fL (9.5-13.5); Monocytes Absolute Auto 0.6 10^3/uL (0.3-0.8); Neutrophils Absolute Auto 7.5 10^3/uL (1.4-6.5); Neutrophils Percent Auto 74.3 % (43.0-75.0); Platelet Count 321 10^3/uL (150-450); Red Blood Count 3.84 10^6/uL (4.20-5.40); Red Cell Distribution Width 15.7 % (11.0-15.0); White Blood Count 10.1 10^3/uL (4.0-11.0)
[2024-06-09 04:07] LABS: CEA 2.3 ng/mL (0.0-4.7)
[2024-06-11 15:22] LABS: Estimated GFR (African America 58 (>=60 mL/min/1.73m^2); Estimated GFR (Non-African Ame 48 (>=60 mL/min/1.73m^2)
== END 2024-06-08 11:58 | disposition home or self-care (01) ==
LOC: LAB 11:57
PROVIDERS: PCP Family Medicine
DX: A41.9 Sepsis, unspecified organism (principal); B95.62 Methicillin resistant Staphylococcus aureus infection as the cause of diseases classified elsewhere
CPT/HCPCS: 36415; 80202; 82378; 82565; 85025; 86140

== ENCOUNTER 2024-06-15 11:48 | Outpatient (REF) | payer BC, SELFPAY ==
[2024-06-15 12:45] LABS: Basophils Percent Auto 0.3 % (0.2-2.0); Eosinophils Absolute Auto 0.1 10^3/uL (0.0-0.7); Eosinophils Percent Auto 1.2 % (0.9-7.0); Hematocrit 32.2 % (36.0-48.0); Hemoglobin 10.1 g/dL (12.0-16.0); Immature Granulocytes Abs Auto 0.05 10^3/uL (0.00-0.03); Immature Granulocytes Pct Auto 0.5 % (0.0-0.5); Lymphocytes Absolute Auto 1.3 10^3/uL (1.2-3.8); Lymphocytes Percent Auto 13.4 % (20.5-60.0); Mean Corpuscular HGB Conc 31.4 g/dL (29.9-35.2); Mean Corpuscular Hemoglobin 27.3 pg (26.7-34.0); Mean Platelet Volume 10.2 fL (9.5-13.5); Monocytes Absolute Auto 0.6 10^3/uL (0.3-0.8); Monocytes Percent Auto 5.8 % (1.7-12.0); Neutrophils Absolute Auto 7.7 10^3/uL (1.4-6.5); Neutrophils Percent Auto 78.8 % (43.0-75.0); Platelet Count 268 10^3/uL (150-450); Red Cell Distribution Width 15.9 % (11.0-15.0); White Blood Count 9.8 10^3/uL (4.0-11.0)
[2024-06-15 12:55] LABS: C Reactive Protein 0.97 mg/dL (<=0.50); Estimated GFR (African America >60 (>=60 mL/min/1.73m^2); Estimated GFR (Non-African Ame >60 (>=60 mL/min/1.73m^2); Vancomycin Trough 15.9 ug/mL (5.0-20.0)
== END 2024-06-15 11:49 | disposition home or self-care (01) ==
LOC: LAB 11:48
PROVIDERS: PCP Family Medicine
DX: A41.9 Sepsis, unspecified organism (principal)
CPT/HCPCS: 36415; 80202; 82565; 85025; 86140

== ENCOUNTER 2024-07-03 15:18 | Outpatient (OUT) | payer BC, SELFPAY ==
--- NOTE | 2024-07-03 | XR_ITS ---
The [address] [address] Patient Name: CAROLINA GUTIERREZ MRN: [id number] date: 1960 Sex: F Assigned Patient Location: [facility] Current Patient Location: [facility] Accession/Order Number: [id number] Exam Date: 07/03/2024 15:27 Report Date: 07/05/2024 11:04 At the request of: CHASE MORAN Procedure: XR chest 2V EXAM: XR chest 2V HISTORY: R05.9, cough COMPARISON: 10/18/2023 TECHNIQUE: 2 views FINDINGS: Chronic rotator cuff tear seen on the right. Patient status post left shoulder arthroplasty. There has been resorption or surgical removal of the distal aspect of the left clavicle. Chronic-appearing thoracic compression deformities are seen. No focal consolidation seen. No pleural effusions are noted. XR/XR chest 2V IMPRESSION: No acute cardiopulmonary pathology. Chronic changes as noted above. Electronically authenticated by: Holly NEWMAN Date: 07/05/2024 11:04
== END 2024-07-03 15:19 | disposition home or self-care (01) ==
LOC: RAD 15:19
PROVIDERS: PCP Family Medicine; Visit Provider Family Medicine
DX: R05.9 Cough, unspecified (principal)
CPT/HCPCS: 71046

== ENCOUNTER 2024-08-24 09:11 | Outpatient (OUT) | payer BC, SELFPAY ==
--- NOTE | 2024-08-24 09:30 | XR_ITS ---
The [address] [address] Patient Name: CAROLINA GUTIERREZ MRN: [id number] date: 1960 Sex: F Assigned Patient Location: LAB Current Patient Location: LAB Accession/Order Number: [id number] Exam Date: 08/24/2024 11:25 Report Date: 08/24/2024 11:30 At the request of: CHASE MORAN MD Procedure: XR chest 2V PA AND LATERAL CHEST: CLINICAL HISTORY: Cough and chest congestion. Right Lower Lobe Pneumonia COMPARISON: 07/03/2024 Mild patchy infiltrative change is seen at the right lower lobe. There is no additional consolidation, pleural effusion or pneumothorax. The cardiac, hilar and mediastinal silhouettes are stable. There is no vascular congestion. The bony structures are osteopenic. Similar thoracic wedge deformities are seen. There is slight dextroscoliotic curvature . Degenerative changes are present at the shoulders and postoperative change is also noted on the left. XR/XR chest 2V IMPRESSION: RIGHT LOWER LOBE INFILTRATE SUGGESTING PNEUMONIA. Impression dictated by: Marisa Merlos M.D.08/24/2024 11:30 AM Dictation Location: [facility] [employer] Electronically authenticated by: [id number] Y Date: 08/24/2024 11:30
[2024-08-24 09:31] LABS: Hemoglobin 10.8 g/dL (12.0-16.0); Mean Corpuscular HGB Conc 32.7 g/dL (29.9-35.2); Mean Corpuscular Hemoglobin 27.1 pg (26.7-34.0); Mean Corpuscular Volume 82.9 fL (81.0-99.0); Mean Platelet Volume 8.8 fL (9.5-13.5); Platelet Count 272 10^3/uL (150-450); Red Blood Count 3.98 10^6/uL (4.20-5.40); Red Cell Distribution Width 19.3 % (11.0-15.0); White Blood Count 19.7 10^3/uL (4.0-11.0)
[2024-08-24 10:22] LABS: Band Neutrophils Absolute 0.2 10^3/uL (0.0-0.3); Lymphocytes Absolute Manual 0.59 10^3/uL (1.20-3.80); Monocytes Absolute Manual 0.39 10^3/uL (0.30-0.80); Segmented Neut Absolute Manual 18.51 10^3/uL (1.4-6.5)
[2024-08-24 10:32] LABS: Alanine Aminotransferase 10 U/L (14-59); Albumin Globulin Ratio 0.7; Albumin Level 2.6 g/dL (3.4-5.0); Alkaline Phosphatase 131 U/L (46-116); Anion Gap 16.9; Aspartate Amino Transferase 14 U/L (15-37); BUN Creatinine Ratio 18.3; Bilirubin Total 0.9 mg/dL (0.2-1.0); Carbon Dioxide 24.8 mmol/L (21.0-32.0); Chloride 102 mmol/L (98-107); Chol HDL Ratio 2.8; Cholesterol 145 mg/dL (<=200); Estimated GFR (African America >60 (>=60 mL/min/1.73m^2); Estimated GFR (Non-African Ame 53 (>=60 mL/min/1.73m^2); Free T3 1.49 pg/mL (2.18-3.98); Glucose 185 mg/dL (74-106); HDL Cholesterol 52 mg/dL (40-60); LDL Cholesterol Calculated 80.8 mg/dL; Potassium 3.7 mmol/L (3.5-5.1); Sodium 140 mmol/L (136-145); Thyroid Stimulating Hormone 0.059 uIU/mL (0.358-3.740); Total Protein 6.6 g/dL (6.4-8.2); Triglycerides 61 mg/dL (<=150); VLDL CHOLESTEROL 12.2 mg/dL
[2024-08-24 10:42] LABS: Estimated Average Glucose 120 mg/dL; Glycohemoglobin A1C 5.8 % (4.5-6.2)
[2024-08-25 05:07] LABS: Insulin 93.5 uIU/mL (2.6-24.9)
== END 2024-08-24 09:12 | disposition home or self-care (01) ==
LOC: LAB 09:13
PROVIDERS: PCP Family Medicine; Visit Provider Family Medicine
DX: Z00.00 Encounter for general adult medical examination without abnormal findings (principal); J18.9 Pneumonia, unspecified organism
CPT/HCPCS: 36415; 71046; 80053; 80061; 83036; 83525; 84436; 84443; 84481; 85007; 85027

== ENCOUNTER 2025-03-18 10:44 | Outpatient (OUT) | payer BC, SELFPAY ==
--- OUTSIDE RECORDS SUMMARY | 2025-03-12 20:12 | XMS_ITS | Encounter Summary ---
Author Organization [facility] Address [address] [place] [address] Care Team Providers Care Open Shank Coverer Name Role Phone AmbikaSammy Oswald YOST Unavailable [phone] Catalina Watson MD Unavailable [phone] Santino Aviles MD Primary Care Provider [phone] Source Comments In the event this information is protected by the Federal Confidentiality of Alcohol and Drug AbusePatient Records regulations: The Federal rules restrict any use of the information to criminally investigate or prosecute any alcohol or drug abuse patient.[facility] Reason for Visit * Reason Comments Fall [...] EDT - 03/13/2025 12:09 AM EDT Emergency [facility] [address] [place] [address] Elvira Olivas DO [address] [place] [address] Jagjit Farley MD [address] [place] [address] Fall Discharge Disposition: Home Social History Tobacco [...] is lower risk 5 03/13/2025 Data from: https://www.neighborhoodatlas.medicine.[facility].e du/. Last address used for calculation [address] 03/13/2025 Comments No Sex and [...] Sutures - Suture Removal In 7 Days (KINYARWANDA) documented in this encounter Medications at Time of Discharge L.acidophilus-L.rha mnosus (PROBIOTIC) 15 billion cell capsule Take 1 capsule by mouth once daily. Align furosemide (LASIX) 20 mg tablet Take 20 mg by mouth once daily. 07/15/202 4 potassium chloride ER (KLOR-CON) 20 mEq tablet Take 20 mEq by mouth two times a day. 4 tiotropium bromide (SPIRIVA WITH HANDIHALER INHALATION) Inhale 1 Puff as instructed once daily. montelukast sodium (SINGULAIR ORAL) Take 10 mg by mouth two times a day. CITRACAL 500 MG (2,376 MG) EFFERVESCENT TABIndications:Othe r and unspecified nonspecific immunological findings,Alopecia Take one(1) tablet two(2) times daily. 0 6 celecoxib (CELEBREX) 200 mg capsule TAKE 1 [...] needed for nausea/vomiting. 10 tablet 1 4 semaglutide (OZEMPIC) 2 mg/dose (8 mg/3 mL) pen injector Inject 2 mg subcutaneously one time a week. 4 ondansetron orally disintegrating (ZOFRAN ODT) 4 mg disintegrating tabletIndications:N ausea Take 1 tablet by mouth every 8 hours as needed. 90 tablet 1 4 EPIPEN 2-SHANE 0.3 mg/0.3 mL (1:1,000) atIn 4 fluticasone (FLONASE) 50 mcg/actuation nasal spray 1 Bishop daily at bedtime. in each nostril. 0 1 Cholecalciferol, Vitamin D3, 1,000 unit ORAL Tab Take 1 tablet by mouth once daily. 0 1 doxycycline monohydrate 100 mg tablet Take 1 [...] Mother ??? Cerebral Embolism Father CVA, aneurysm, [place], ??? other (normal [Other]) Sister ??? None [...] No Stemi Confirmed by ELVIRA OLIVAS DO ([id number]) on 03/12/2025 9:22:56 PM LAC REPAIR Date/Time: 03/12/2025 10:45 PM Performed by: Elvira Olivas DO Authorized by: Elvira Olivas DO Informed Consent Consent Obtained: Verbal [place] Protocol A moment to CARE was completed. [...] Elvira Olivas DO - ELVIRA OLIVAS 03/12/25 1312 [1] Social History Tobacco Use ??? Smoking [...] No Stemi Confirmed by ELVIRA OLIVAS DO ([id number]) on 03/12/2025 9:22:56 PM Medical Decision Making [...] PATIENT PRESENTS WITH AN IMPLANTABLE OR ATTACHED TIE INSPECTOR: No RADIOLOGY DEPARTMENT: CT; Exam(s) Completed: Brain , Lower extremity , and Spine . Anesthesia: No PERIPHERAL IV DATA: Not applicable SIGNED BY: FOUZIA Smiley March 12, 2025 8:32 PM documented in this encounter Plan of Treatment Upcoming Encounters Date Type Department Care Team (Late st Contact Info) Description 03/22/2025 9:00 AM EDT Results Only [facility] [address] [place] [address] [place] [address] labs 02/14/2026 9:00 AM EDT Office Visit Rheumatology [address] [facility] [address] [facility] [place] [address] Shanna Muller MD [address] [address] RTC after DXA- 6-12 mo f/u documented as of this encounter Procedures Procedure Name Priority Date/Time Associated Diagnosis Comments HIGH SENSITIVITY TROPONIN T (SECOND) STAT 03/12/2025 11:30 PM EDT [facility] ED NOTEWRITER PROCEDURE LACERATION REPAIR Routine 03/12/2025 [...] TROPONIN T (SECOND) (03/12/2025 11:30 PM EDT) Pathologist [facility] DOMENICA High Sensitivity 10 <12 ng/L 03/13/2025 12:10 AM EDT [facility] Blood BLOOD SPECIMEN / Unknown Venipuncture / Unknown 03/12/2025 11:30 PM EDT 03/12/2025 11:40 PM EDT us Elvira Olivas DO LABORATORY Final Result [facility] [address] [place] [address], * LAC REPAIR (03/12/2025 10:45 PM EDT) Narrative Elvira Olivas DO - 03/12/2025 10:45 PM EDT Elvira Olivas DO 03/12/2025 10:51 PM LAC REPAIR Date/Time: 03/12/2025 10:45 PM Performed by: Elvira Olivas DO Authorized by: Elvira Olivas DO Informed Consent Consent Obtained: Verbal [place] Protocol A moment to CARE was completed. [...] team (including bedside nurse for hospitalized patients). [facility] PROCEDURE Final Result * POTASSIUM (03/12/2025 10:24 PM EDT) Potassium 4.0 3.7 - 5.1 mmol/L 03/12/2025 10:58 PM EDT [facility] Blood BLOOD SPECIMEN / Unknown Venipuncture / Unknown 03/12/2025 10:24 PM EDT 03/12/2025 10:31 PM EDT [facility] Final Result Performing Organization Address [facility]/ZIP Co de Phone Number [facility] [address] * HIGH SENSITIVITY TROPONIN T (INITIAL) (03/12/2025 10:24 PM EDT) Pathologist [facility] [place] High Sensitivity 8 <12 ng/L 03/12/2025 10:51 PM EDT [facility] Blood BLOOD SPECIMEN / Unknown Venipuncture / Unknown 03/12/2025 10:24 PM EDT 03/12/2025 10:31 PM EDT [facility] Final Result Performing Organization Address [facility] Co de Phone Number [facility] [address] * MAGNESIUM (03/12/2025 9:46 PM EDT) Pathologist [facility] Magnesium 1.9 1.7 - 2.3 mg/dL 03/12/2025 10:18 PM EDT [facility] Blood BLOOD SPECIMEN / Unknown Venipuncture / Unknown 03/12/2025 9:46 PM EDT 03/12/2025 9:53 PM EDT [facility] LABORATORY Final Result Performing Organization Address [facility] Co de Phone Number [facility] [address] * (ABNORMAL) COMPLETE BLOOD COUNT (03/12/2025 9:46 PM EDT) WBC 11.12(H) 3.70 - 11.00 k/uL 03/12/2025 9:56 PM EDT [facility] RBC 3.97 3.90 - 5.20 m/uL 03/12/2025 9:56 PM EDT [facility] Hemoglobin 11.5 11.5 - 15.5 g/dL 03/12/2025 9:56 PM EDT [facility] Hematocrit 35.6(L) 36.0 - 46.0 % 03/12/2025 9:56 PM EDT [facility] MCV 89.7 80.0 - 100.0 fL 03/12/2025 9:56 PM EDT [facility] MCH 29.0 26.0 - 34.0 pg 03/12/2025 9:56 PM EDT [facility] MCHC 32.3 30.5 - 36.0 g/dL 03/12/2025 9:56 PM EDT [facility] RDW-CV 14.9 11.5 - 15.0 % 03/12/2025 9:56 PM EDT [facility] Platelet Count 308 150 - 400 k/uL 03/12/2025 9:56 PM EDT [facility] MPV 9.1 9.0 - 12.7 fL 03/12/2025 9:56 PM EDT [facility] Absolute nRBC <0.01 <0.01 k/uL 03/12/2025 9:56 PM EDT [facility] Blood BLOOD SPECIMEN / Unknown Venipuncture / Unknown 03/12/2025 9:46 PM EDT 03/12/2025 9:53 PM EDT Elvira Olivas LABORATORY Final Result [facility] [address] [place] [address], * (ABNORMAL) BASIC METABOLIC PANEL (03/12/2025 9:46 PM EDT) Glucose 102(H) 74 - 99 mg/dL 03/12/2025 10:18 PM EDT [facility] Comment: The [place] Diabetes Association (ADA) provides guidance for cutoff [...] Standards of Medical Care in Diabetes 2016, [place] [employer]. Diabetes Care. 2016.39(Suppl 1). BUN 22(H) 7 - 21 mg/dL 03/12/2025 10:18 PM [facility] Creatinine 0.72 0.58 - 0.96 mg/dL 03/12/2025 10:18 PM [facility] Sodium 138 136 - 144 mmol/L 03/12/2025 10:18 PM [facility] Potassium 03/12/2025 10:18 PM [facility] Comment:Unable to assay due to interference from hemolysis. Suggest reorder as clinically indicated. Chloride 101 98 - 107 mmol/L 03/12/2025 10:18 PM [facility] CO2 26 22 - 30 mmol/L 03/12/2025 10:18 PM [facility] Anion Gap 11 8 - 15 mmol/L 03/12/2025 10:18 PM [facility] Calcium, Total 9.0 8.5 - 10.2 mg/dL 03/12/2025 10:18 PM [facility] Estimated Glomerular Filtration Rate 93 >=60 mL/min/1. 73m 03/12/2025 10:18 PM [facility] Comment:Estimated Glomerular Filtration Rate (eGFR) is [...] us Elvira Olivas DO LABORATORY Final Result [facility] [address] [place] [address], [place] * XR KNEE INJURY 4V AP/LAT/OBLS LEFT (03/12/2025 9:18 PM EDT) Anatomical Region Laterality Modality Knee Radiographic Chiquita ging 03/12/2025 9:18 PM EDT Impressions 03/12/2025 10:35 PM EDT IMPRESSION: 1. Uncomplicated appearance of medial compartment arthroplasty. 2. Mild patellofemoral arthrosis. Honing Machine Operator: PSCJoan Transcribe Date/Time: Mar 12 2025 10:30P Dictated [...] tissues are grossly unremarkable. Procedure Note Provider, [facility] [place] - 03/12/2025 * * *Final Report* * [...] medial compartment arthroplasty. 2. Mild patellofemoral arthrosis. Honing Machine Operator: [facility] Transcribe Date/Time: Mar 12 2025 10:30P Dictated by : ANTONIO VELASQUEZ MD This examination was interpreted and the report reviewed and electronically signed by: ANTONIO VELASQUEZ MD on Mar 12 2025 10:33PM EST Elvira Brendon DO RAD-PAMA Final Result * CT KNEE [...] tibial tuberosity which may represent foreign bodies. Honing Machine Operator: [facility] Transcribe Date/Time: Mar 12 2025 10:05P Dictated by : FATOUMATA CONNELL MD This examination was interpreted and the report reviewed and electronically signed by: FATOUMATA CONNELL MD on Mar 12 2025 10:19PM EST Narrative 03/12/2025 10:21 PM EDT * * *Final Report* * * DATE OF EXAM: Mar 12 2025 8:41PM [facility] 0083 - CT KNEE WO IVCON LT [...] knee arthroplasty are noted. Procedure Note Provider, [facility] [place] - 03/12/2025 * * *Final Report* * * DATE OF EXAM: Mar 12 2025 8:41PM [facility] 0083 - CT KNEE WO IVCON LT [...] tibial tuberosity which may represent foreign bodies. Honing Machine Operator: [facility] Transcribe Date/Time: Mar 12 2025 10:05P Dictated by : FATOUMATA CONNELL MD This examination was interpreted and the report reviewed and electronically signed by: FATOUMATA CONNELL MD on Mar 12 2025 10:19PM EST us Elvira Brendon DO CT-PAMA Final Result * CT CERVICAL SPINE WO IVCON (03/12/2025 8:41 PM EDT) Anatomical Region Laterality Modality C-spine Computed Tomogra phy 03/12/2025 8:41 PM EDT Impressions 03/12/2025 9:23 PM EDT IMPRESSION: No acute fractures demonstrated in the cervical spine. Cervical spine degenerative changes with C5-6 disc space narrowing. Honing Machine Operator: [facility] Transcribe Date/Time: Mar 12 2025 9:09P Dictated by : DILSHAD AC MD This examination was interpreted and the report reviewed and electronically signed by: DILSHAD AC MD on Mar 12 2025 9:21PM EST Narrative 03/12/2025 9:23 PM EDT * * *Final Report* * * DATE OF EXAM: Mar 12 2025 8:41PM [facility] 0505 - CT CERVICAL SPINE WO IVCON [...] Counting reference: Craniocervical junction. Anatomic Variants: None. Square Cutter (topogram) images: No additional findings. Alignment: No [...] facet arthrosis is present Procedure Note Provider, [facility] [place] - 03/12/2025 * * *Final Report* * * DATE OF EXAM: Mar 12 2025 8:41PM [facility] 0505 - CT CERVICAL SPINE WO IVCON [...] Counting reference: Craniocervical junction. Anatomic Variants: None. Square Cutter (topogram) images: No additional findings. Alignment: No [...] degenerative changes with C5-6 disc space narrowing. Honing Machine Operator: PSCB Transcribe Date/Time: Mar 12 2025 9:09P [...] EDT IMPRESSION: No acute intracranial hemorrhage identified. Honing Machine Operator: DEBBIE Transcribe Date/Time: Mar 12 2025 9:09P Dictated by : DILSHAD AC MD This examination was interpreted and the report reviewed and electronically signed by: DILSHAD AC MD on Mar 12 2025 9:14PM EST Narrative 03/12/2025 9:16 PM EDT * * *Final Report* * * DATE OF EXAM: Mar 12 2025 8:41PM [facility] 0504 - CT BRAIN WO IVCON / [...] images: No additional findings. Procedure Note Provider, [facility] [place] - 03/12/2025 * * *Final Report* * * DATE OF EXAM: Mar 12 2025 8:41PM [facility] [address]504 - CT BRAIN WO IVCON / [...] IMPRESSION IMPRESSION: No acute intracranial hemorrhage identified. Honing Machine Operator: DEBBIE Transcribe Date/Time: Mar 12 2025 9:09P [...] (Bazett) 449 ms [facility] Calculated P Holiday 35 degrees [facility] Calculated R Holiday -14 degrees [facility] Calculated T Holiday 97 degrees [facility] 03/12/2025 8:26 PM EDT Impressions [facility] - 03/12/2025 9:22 PM EDT SINUS RHYTHM WITH OCCASIONAL PREMATURE VENTRICULAR COMPLEXES POSSIBLE LEFT ATRIAL ENLARGEMENT CANNOT RULE OUT ANTERIOR INFARCT , AGE UNDETERMINED T WAVE ABNORMALITY, CONSIDER LATERAL ISCHEMIA ABNORMAL ECG No Stemi Confirmed by ELVIRA OLIVAS DO ([id number]) on 03/12/2025 9:22:56 PM Narrative [facility] - 03/12/2025 9:22 PM EDT NAME : ALTIZABELLA PID : [id number] : 1960 Gender : Female Race : ORD : Procedure Date : Mar 12 2025 20:26:52 Edit Date : Mar 12 2025 21:22:58 Diagnosis: SINUS RHYTHM WITH OCCASIONAL PREMATURE VENTRICULAR COMPLEXES POSSIBLE LEFT ATRIAL ENLARGEMENT CANNOT RULE OUT ANTERIOR INFARCT , AGE UNDETERMINED T WAVE ABNORMALITY, CONSIDER LATERAL ISCHEMIA ABNORMAL ECG No Stemi Confirmed by ELVIRA OLIVAS DO ([id number]) on 03/12/2025 9:22:56 PM Test Reason : Location : 1 : ER ED Overread By : ELVIRA OLIVAS DO Edited By : ELVIRA OLIVAS DO Referred By : , Acquired by : sc, us [facility] Provider CARDIOLOGY_ME Final Result [facility] documented in this encounter Visit Diagnoses Diagnosis [...] RN) documented in this encounter Care Teams Open Shank Coverer Relationship Specialty Start Date End Date Santino Aviles MD [address] [facility] [place] [address] PCP - General Family Medicine 06/15/24 Sammy Apple DO [address] [place] [address] Orthopedics 10/02/23 Catalina Watson MD [address] [address] Referring Dermatology 05/14/24 documented as of this encounter
--- OUTSIDE RECORDS SUMMARY | 2025-03-18 10:48 | XMS_ITS | Clinical Summary ---
Author Organization [facility] Address [id number] [address] [place] [address] Care Team Providers Care Hollow Handle Bench Worker Name Role Phone Tiffanie Guerrero MD Primary Care Provider [phone] Allergies Active Allergy Reactions Criticality Noted Date Comments Cephalexin Hives 09/12/2022 Penicillin G Hives 09/12/2022 Medications sodium chloride 3 % nebulizer solutionIndicati ons:Severe persistent asthma without complication (CMS-HCC) Inhale by nebulization in the morning and at bedtime. 750 mL 1 2 Active Additional Information Patient not taking.Reported on 09/12/2022 mupirocin (BACTROBAN) 2 % ointmentIndicati ons:Nasal crusting Apply to inside of nose with a Q-tip 3x per day x2 weeks to help reduce crusting 30 g 1 2 Active Additional Information Patient not taking.Reported on 09/12/2022 denosumab (PROLIA) 60 mg/mL syringe injection Inject 1 mL (60 mg total) under the skin Every 6 months. 2 Active celecoxib (CeleBREX) 200 mg capsule Take 1 capsule (200 mg total) by mouth in the morning and 1 capsule (200 mg total) before bedtime. 2 Active cetirizine (ZyrTEC) 10 mg tablet Take 1 tablet (10 mg total) by mouth in the morning and 1 tablet (10 mg total) before bedtime. 2 Active cholestyramine (QUESTRAN) 4 g packet Take 1 packet (4 g total) by mouth in the morning. Active famotidine (PEPCID) 20 mg tablet Take 1 tablet (20 mg total) by mouth in the morning and at bedtime. 2 Active fluticasone propionate (FLONASE) 50 mcg/actuation nasal spray Administer 2 sprays into each nostril in the morning. Active metFORMIN (GLUCOPHAGE) 500 mg tablet Take 1 tablet (500 mg total) by mouth in the morning. Active levothyroxine (SYNTHROID, LEVOTHROID) 137 MCG tablet Take 1 tablet (137 mcg total) by mouth in the morning. 2 Active OZEMPIC 1 mg/dose (4 mg/3 mL) pen injector Inject 1 mg under the skin every 7 days. 2 Active RINVOQ 15 mg tablet extended release 24 hr Take 15 mg by mouth in the morning. 2 Active zafirlukast (ACCOLATE) 20 mg tablet Take 1 tablet (20 mg total) by mouth in the morning and 1 tablet (20 mg total) before bedtime. 2 Active predniSONE (DELTASONE) 10 mg tabletIndication s:Severe persistent asthma with (acute) exacerbation (CMS-HCC) 4 tabs by mouth daily x3 days, then 3 tabs daily x3 days, then 2 tabs daily x3 days, then 1 tab daily x3 days 30 tablet 3 Active ipratropium-albu teroL (DUONEB) 0.5 mg-3 mg(2.5 mg base)/3 mL nebulizerIndicat ions:Severe persistent asthma with (acute) exacerbation (CMS-HCC) Inhale 1 mL by nebulization every 6 (six) hours as needed for wheezing or shortness of breath. 75 mL 2 3 Active guaiFENesin (MUCINEX) 600 mg tablet extended release 12hrIndications: Severe persistent asthma with (acute) exacerbation (CMS-HCC) Take 1 tablet (600 mg total) by mouth every 12 (twelve) hours. 60 tablet 1 3 Active fluticasone-umec lidin-vilanter (TRELEGY ELLIPTA) 200-62.5-25 mcg blister with deviceIndication s:Severe persistent asthma with (acute) exacerbation (CMS-HCC) Inhale 1 puff in the morning. 60 each 5 3 Active dupilumab (DUPIXENT PEN) 300 mg/2 mL pen injector SUBQ injection penIndications:S evere persistent asthma with acute exacerbation (CMS-HCC) Inject 2 mL (300 mg total) under the skin every 14 (fourteen) days. 4 mL 11 3 Active predniSONE (DELTASONE) 20 mg tabletIndication s:Severe persistent asthma with (acute) exacerbation (CMS-HCC) Take 2 tabs by mouth daily for 3 days, then 1 tab daily for 3 days, then 1/2 tab daily for 4 days, then stop. 11 tablet 3 Active omeprazole (PriLOSEC) 40 mg capsuleIndicatio ns:Gastroesophag eal reflux disease, unspecified whether esophagitis present TAKE 1 CAPSULE BY MOUTH EVERY DAY IN THE MORNING BEFORE BREAKFAST 90 capsule 1 3 Active azelastine (ASTELIN) 137 mcg (0.1 %) nasal sprayIndications :Other allergic rhinitis ADMINISTER 2 SPRAYS INTO EACH NOSTRIL IN THE MORNING AND AT BEDTIME. 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 Complication internal fixati on device such as nail, plate, or sabiha 10/28/2015 Hyperlipidemia 05/06/2012 Rheumatoid arthritis 04/18/2011 Alopecia areata 05/27/2006 Social History Tobacco Use Types Packs/Day Years Used Date Smoking Tobacco: Never Smokeless Tobacco: Never Tobacco Cessation:Counseling Given: Not Answered Alcohol Use Standard Drinks/Week Comments Yes 0 (1 standard drink = 0.6 oz pur e alcohol) Childcare Answer Date Recorded Childcare Unknown 12/10/2018 Employment Answer Date Recorded Employment Unknown 12/10/2018 Hunger Screening Answer Date Recorded Within the past 12 months we worried whether our food would run out before we got money to buy more. Never True 09/12/2022 Within the past 12 months th e food we bought just didn't last and we didn't have money to get more. Never True 09/12/2022 Purpose - Life Answer Date Recorded Purpose and direction in life Unknown Comments Unknown Sex and Gender Information Value Date Recorded Sex Assigned at Not on file Legal Sex Female 12:04 PM EDT Gender Identity Not on file Sexual Orientation Not on file Last Filed Vital Signs Vital Sign Reading Time Taken Comments Blood Pressure 144/84 09/12/2022 9:17 AM EDT Pulse 112 09/12/2022 9:17 AM EDT Temperature - - Respiratory Rate - - Oxygen Saturation 96% 09/12/2022 9:17 AM EDT Inhaled Oxygen Concentration - - Weight 84.4 kg (186 lb) 05/28/2022 2:27 PM EST Height 149.9 cm (4' 11 ) 05/28/2022 2:27 PM EST Body Mass Index 37.57 05/28/2022 2:27 PM EST Plan of Treatment Health Maintenance Due Date Last Done Comments Depression Screening 1972 Tobacco Screening 1972 DTaP,Tdap and Td Vaccines (1 - Tdap) 11/04/1978 Zoster (Shingles) Vaccine (1 of 2) 11/04/2009 Adult BMI Screening 05/28/2023 05/28/2022 Fall Risk Screening 11/04/2024 COVID-19 Vaccine (2024-2 6 season) 2025 07/24/2022, 11/17/2021, 06/09/2021, Additional history exists Influenza Vaccine 03/01/2025 05/14/2023, , 05/10/2021, Additional history exists Medical Devices Not on file Insurance [employer] Care Teams Hollow Handle Bench Worker Relationship Specialty Start Date End Date Tiffanie Guerrero MD PCP - General Family Medicine 10/06/18
--- OUTSIDE RECORDS SUMMARY | 2025-03-18 10:48 | XMS_ITS | Encounter Summary ---
Author Organization [facility] Address [id number] [address] [place] [address] Care Team Providers Care Caustic Liquor Maker Name Role Phone Tiffanie Guerrero MD Primary Care Provider [phone] Encounter Details Date Type Department Care Team (Late st Contact Info) Description 09/27/2023 Orders Only [facility] [place] [address] External, Scanning Provider Pain (Primary Dx) Social History Tobacco Use Types Packs/Day Years [...] on file Sexual Orientation Not on file documented as of this encounter Plan of Treatment Not on file documented as of this encounter Results * X-ray shoulder left minimum 2 views (09/17/2023 1:20 PM EDT) us Scanning Provider External IMG DIAGNOSTIC IMAGIN G ORDERABLES Final Result documented in this encounter Visit Diagnoses Diagnosis Pain- Primary Generalized pain documented in this encounter Care Teams Caustic Liquor Maker Relationship Specialty Start Date End Date Tiffanie Guerrero MD PCP - General Family Medicine 10/06/18 documented as of this encounter
--- OUTSIDE RECORDS SUMMARY | 2025-03-18 10:48 | XMS_ITS | Encounter Summary ---
Author Organization [facility] Address [address] [place] [address] Care Team Providers Care Awning Assembler Name Role Phone Sammy Apple DO Unavailable [phone] Marisela Falk APRN.[facility] Primary Care Provider Catalina Watson MD Unavailable [phone] Santino Aviles MD Primary Care Provider [phone] Source Comments In the event this information is protected by the Federal Confidentiality of Alcohol and Drug AbusePatient Records regulations: The Federal rules restrict any use of the information to criminally investigate or prosecute any alcohol or drug abuse patient.[facility] Encounter Details Date Type Department Care Team (Late st Contact Info) Description 05/13/2024 Patient Msg Orthopaedics [address] [place] [address] Robert Harrison PA [address] [address] Appointment Request Social History Tobacco Use Types Packs/Day Years Used Date Smoking Tobacco: Never Smokeless Tobacco: Never Alcohol Use Standard Drinks/Week Comments Yes 0 (1 standard drink = 0.6 oz pur e alcohol) week-ends PHQ-2 Answer Date Recorded PHQ-2 score 0 05/01/2024 Area Deprivation Index Answer Date Rudy rded National Score (1-100), lowe r number is lower risk 67 10/01/2023 State Score (1-10), lower number is lower risk 5 10/01/2023 Data from: https://www.neighborhoodatlas.[facility] /. Last address used for calculation [address] 10/01/2023 Comments No Sex and Gender Information Value Date Recorded Sex Assigned at Not on file Legal Sex Female 8:53 AM EST Gender Identity Not on file Sexual Orientation Not on file Occupation Industry Job Start Date Job End Date Not on file Not on file Not on file Not on file documented as of this encounter Functional Status * Are you deaf or do you have serious difficulty hearing? Answer Date of Assessment Author No 04/15/2024 2:04 PM Austen Land RN * Are you blind or do you have serious difficulty seeing, even when wearing glasses? Answer Date of Assessment Author No 04/15/2024 2:04 PM Austen Land RN * Do you have serious difficulty walking or climbing stairs? Answer Date of Assessment Author No 04/15/2024 2:04 PM Austen Land RN * Do you have difficulty dressing or bathing? Answer Date of Assessment Author No 04/15/2024 2:04 PM Austen Land RN * Because of a physical, mental, or emotional condition, do you have difficulty doing errands alone such as visiting a doctor's office or shopping? Answer Date of Assessment Author No 04/15/2024 2:04 PM Austen Land RN documented as of this encounter Mental Status * Because of a physical, mental, or emotional condition, do you have serious difficulty concentrating, remembering, or making decisions? Answer Entry Date Author No 04/15/2024 2:04 PM Austen Land RN documented in this encounter Plan of Treatment Upcoming Encounters Date Type Department Care Team (Late st Contact Info) Description 03/22/2025 9:00 AM EDT Results Only [facility] [address] [place] [address] labs 02/14/2026 9:00 AM EDT Office Visit Rheumatology [address] [facility] [place] [address] Shanna Muller MD [address] [facility] [place] [address] RTC after DXA- 6-12 mo f/u documented as of this encounter Visit Diagnoses Not on filedocumented in this encounter Care Teams Awning Assembler Relationship Specialty Start Date End Date Marisela Falk, [employer]BOOK P[employer]ER [address] [place] [address] PCP - General 12/23/23 06/14/24 Santino Aviles MD [address] [place] [address] PCP - General Family Medicine 06/15/24 Sammy Apple DO [address] [place] [address] Orthopedics 10/02/23 Catalina Watson MD [address] [address] Referring Dermatology 05/14/24 documented as of this encounter
--- OUTSIDE RECORDS SUMMARY | 2025-03-18 10:48 | XMS_ITS | Encounter Summary ---
Author Organization [facility] Address [address] [place] [address] Care Team Providers Care Edging Machine Setter Name Role Phone Sammy Apple Oswald DO Unavailable [phone] Catalina Watson MD Unavailable [phone] Santino Aviles MD Primary Care Provider [phone] Source Comments In the event this information is protected by the Federal Confidentiality of Alcohol and Drug AbusePatient Records regulations: The Federal rules restrict any use of the information to criminally investigate or prosecute any alcohol or drug abuse patient.[facility] Reason for Visit * Reason Comments Refill Request Encounter Details Date Type Department Care Team (Late st Contact Info) Description 03/12/2025 Refill Rheumatology [address] [address] Gabo Perez APRN.MEDICAL RECORDS FIELD TECHNICIAN [address] [place] [address] Refill Request Social History Tobacco Use Types Packs/Day [...] is lower risk 5 03/13/2025 Data from: https://www.neighborhoodatlas.[facility].e du/. Last address used for calculation [address] [address] 03/13/2025 Comments No Sex and [...] Austen Land RN documented in this encounter Miscellaneous Notes * Telephone Encounter - Shanna Muller MD - 03/12/2025 4:59 PM EDT Notify patient medication sent as requested Thank you. Patient's request for medication is as follows: Requested Prescriptions Pending Prescriptions Disp Refills ??? celecoxib (CELEBREX) 200 mg capsule [Pharmacy Med Name: CELECOXIB 200 MG CAPSULE] 180 capsule 2 Sig: TAKE 1 CAPSULE BY MOUTH TWICE A DAY Prescription(s) as above. Please process accordingly. Shanna Muller MD documented in this encounter Plan of Treatment Upcoming Encounters Date Type Department Care Team (Late st Contact Info) Description 03/22/2025 9:00 AM EDT Results Only [facility] [address] [place] [address] [place] [address] labs 02/14/2026 9:00 AM EDT Office Visit Rheumatology [address] [place] [address] Shanna Muller MD [address] [place] [address] RTC after DXA- 6-12 mo f/u documented as of this encounter Visit Diagnoses Not on filedocumented in this encounter Care Teams Edging Machine Setter Relationship Specialty Start Date End Date Santino Aviles MD [address] [place] [address] PCP - General Family Medicine 06/15/24 Sammy Apple DO [address] [place] [address] Orthopedics 10/02/23 Catalina Watson MD [address] [address] Referring Dermatology 05/14/24 documented as of this encounter
--- OUTSIDE RECORDS SUMMARY | 2025-03-18 10:48 | XMS_ITS | Encounter Summary ---
Author Organization [facility] Address [address] [place] [address] Care Team Providers Care Consulting Practice Director Name Role Phone AppleSammy Oswald DO Unavailable [phone] Marisela Falk APRN.[facility] Primary Care Provider Catalina Watson MD Unavailable [phone] Santino Aviles MD Primary Care Provider [phone] Source Comments In the event this information is protected by the Federal Confidentiality of Alcohol and Drug AbusePatient Records regulations: The Federal rules restrict any use of the information to criminally investigate or prosecute any alcohol or drug abuse patient.[facility] Encounter Details Date Type Department Care Team (Late st Contact Info) Description 12/27/2023 Patient Msg Pre Anesthesia [address] [place] [address] Sammy Cates APRN.SHORE MAN [address] [place], [place] [id number] Dr. Muller's Instructions Social History Tobacco Use Types Packs/Day Years Used Date Smoking Tobacco: Never Smokeless Tobacco: Never Alcohol Use Standard Drinks/Week Comments Yes 0 (1 standard drink = 0.6 oz pur e alcohol) week-ends PHQ-2 Answer Date Recorded PHQ-2 score 0 11/03/2023 Area Deprivation Index Answer Date Rudy rded National Score (1-100), lowe r number is lower risk 67 10/01/2023 State Score (1-10), lower number is lower risk 5 10/01/2023 Data from: https://www.neighborhoodatlas.[facility] /. Last address used for calculation [id number] 10/01/2023 Comments No Sex and [...] hearing? Answer Date of Assessment Author No 01/27/2014 9:53 AM Naomi Payton MA * Are you blind or do you have serious difficulty seeing, even when wearing glasses? Answer Date of Assessment Author No 01/27/2014 9:53 AM Naomi Payton MA * Do you have serious difficulty walking or climbing stairs? Answer Date of Assessment Author No 01/27/2014 9:53 AM Naomi Payton MA * Do you have difficulty dressing or bathing? Answer Date of Assessment Author No 01/27/2014 9:53 AM Naomi Payton MA * Because of a physical, mental, or emotional condition, do you have difficulty doing errands alone such as visiting a doctor's office or shopping? Answer Date of Assessment Author No 01/27/2014 9:53 AM Naomi Payton MA documented as of this encounter Mental Status * Because of a physical, mental, or emotional condition, do you have serious difficulty concentrating, remembering, or making decisions? Answer Entry Date Author No 01/27/2014 9:53 AM Naomi Payton MA documented in this encounter Plan of Treatment Upcoming Encounters Date Type Department Care Team (Late st Contact Info) Description 03/22/2025 9:00 AM EDT Results Only [facility] [address] [place] [address] labs 02/14/2026 9:00 AM EDT Office Visit Rheumatology [address] [place] [address] Shanna Muller MD [address] [facility] [place], [place] [id number] RTC after DXA- 6-12 mo f/u documented as of this encounter Visit Diagnoses Not on filedocumented in this encounter Care Teams Consulting Practice Director Relationship Specialty Start Date End Date Marisela Falk APRN.SHORE MAN [address] [place] [address] PCP - General 12/23/23 06/14/24 Santino Aviles MD [address] [place] [address] PCP - General Family Medicine 06/15/24 Sammy Apple DO [address] [place] [address] Orthopedics 10/02/23 Catalina Watsno MD [address] [address] Referring Dermatology 05/14/24 documented as of this encounter
--- OUTSIDE RECORDS SUMMARY | 2025-03-18 10:48 | XMS_ITS | Encounter Summary ---
Author Organization [facility] Address [address] [place] [address] Care Team Providers Care Final Coat Sprayer Name Role Phone Silvestre Tamayo MD Primary Care Provider [phone] Marisela Falk TEXTILE MACHINERY SALES REPRESENTATIVE Unavailable Reason for Visit * Reason Onset Date Comments Care Coordination 01/30/2024 Encounter Details Date Type Department Care Team (Late st Contact Info) Description 01/30/2024 Telephone [facility] [address] [facility] [address] [place] [phone] Jessenia Liriano LPN [address] [facility] [place] [address] Care Coordination Social History Tobacco Use Types Packs/Day Years Used Date Smoking Tobacco: Never Smokeless Tobacco: Never Alcohol Use Standard Drinks/Week Comments Yes 2 (1 standard drink = 0.6 oz pur e alcohol) pop 2-3 cups per day Comments Unknown Sex and Gender Information Value Date Recorded Sex Assigned at Not on file Legal Sex Female 6:46 PM EDT Gender Identity Not on file Sexual Orientation Not on file documented as of this encounter Miscellaneous Notes * Telephone Encounter - Jessenia Liriano LPN - 01/30/2024 10:49 AM EDT Called patient via phone regarding rescheduling appointment to follow up on 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 Patient reported she was hospitalized for cellulitis and she is currently under treatment. Patient reports she will call back to schedule follow up appointment once area is heale d. documented in this encounter Plan of Treatment Upcoming Encounters Date Type Department Care Team (Late st Contact Info) Description 01/31/2026 11:40 AM EDT Office Visit [facility] [address] [place] [phone] Theodore Arias MD [address] [place] [address] documented as of this encounter Visit Diagnoses Not on filedocumented in this encounter Care Teams Final Coat Sprayer Relationship Specialty Start Date End Date Silvestre Tamayo MD PCP - General Family Medicine 03/05/23 03/12/24 Marisela Falk NP [address] [place] [address] Referring Physician Family Medicine 03/13/24 documented as of this encounter
--- OUTSIDE RECORDS SUMMARY | 2025-03-18 10:48 | XMS_ITS | Encounter Summary ---
Author Organization [facility] Address [address] [place] [address] Care Team Providers Care Senior Tax Analyst Name Role Phone Marisela Falk SECURITY INTERN Unavailable Encounter Details Date Type Department Care Team (Late st Contact Info) Description 09/22/2024 Abstract [facility] [address] [facility] [address] [address] [place] [phone] Catalina Watson MD [address] [facility] [address] [place] [address] Social History Tobacco Use Types Packs/Day Years [...] as of this encounter Plan of Treatment Upcoming Encounters Date Type Department Care Team (Late st Contact Info) Description 01/31/2026 11:40 AM EDT Office Visit [facility] [address] [place] [address] Theodore Arias MD [address] [place] [address] documented as of this encounter Visit Diagnoses Not on filedocumented in this encounter Care Teams Senior Tax Analyst Relationship Specialty Start Date End Date Marisela Falk NP [address] [place] [address] Referring Physician Family Medicine 03/13/24 documented as of this encounter
--- OUTSIDE RECORDS SUMMARY | 2025-03-18 10:48 | XMS_ITS | Encounter Summary ---
Author Organization [facility] Address [address] [facility] [place] [address] Care Team Providers Care Emc Storage Architect Name Role Phone Silvestre Tamayo MD Primary Care Provider [phone] Marisela Falk DIRECTOR DENTAL SERVICES Unavailable Encounter Details Date Type Department Care Team (Late st Contact Info) Description 12/27/2023 Telephone [facility] [address] [facility] [facility] [address] [place] [address] John Freed MA Social History Tobacco Use Types Packs/Day Years [...] encounter Miscellaneous Notes * Telephone Encounter - John Freed MA - 12/27/2023 3:40 PM EDT Contacted pt went over results above, pt understood and had no further questions at the time of call. * Telephone Encounter - Keisha Ty RN - 12/27/2023 2:03 PM EDT Per will change medication to Doxy 100 mg BID for 10 days. Medication sent to pharmacy on file. Push fluids. Follow up with PCP. * Telephone Encounter - John Freed MA - 12/27/2023 12:05 PM EDT Pt called and states that she is not feeling better and Dr. Nicole told her to call if she is not feeling better so he can change her ATB at this time. [facility] uses [facility] [place]. Please review and advise thank you documented in this encounter Plan of Treatment Upcoming Encounters Date Type Department Care Team (Late st Contact Info) Description 01/31/2026 11:40 AM EDT Office Visit [facility] [address] [phone] Theodore Arias MD [address] [address] documented as of this encounter Visit Diagnoses Diagnosis Acute bronchitis, unspecified organism documented in this encounter Care Teams Emc Storage Architect Relationship Specialty Start Date End Date Silvestre Tamayo MD PCP - General Family Medicine 03/05/23 03/12/24 Marisela Falk NP [address] [place] [address] Referring Physician Family Medicine 03/13/24 documented as of this encounter
--- OUTSIDE RECORDS SUMMARY | 2025-03-18 10:48 | XMS_ITS | Encounter Summary ---
Author Organization [facility] Address [address] [place] [address] Care Team Providers Care Ping Pong Table Assembler Name Role Phone Sammy Apple Oswald DO Unavailable [phone] Catalina Watson MD Unavailable [phone] Santino Aviles MD Primary Care Provider [phone] Source Comments In the event this information is protected by the Federal Confidentiality of Alcohol and Drug AbusePatient Records regulations: The Federal rules restrict any use of the information to criminally investigate or prosecute any alcohol or drug abuse patient.[facility] Encounter Details Date Type Department Care Team (Late st Contact Info) Description 03/13/2025 Patient Update [facility] [address] [place] [address] Elvira Olivas DO [address] [place] [address] Social History Tobacco Use Types Packs/Day Years [...] is lower risk 5 03/13/2025 Data from: https://www.neighborhoodatlas.medicine.[facility].e du/. Last address used for calculation [id number] [address] 03/13/2025 Comments No [...] 9:00 AM EDT Results Only [facility] [address] [place] [address] [place] [address] labs 02/14/2026 9:00 AM EDT Office Visit Rheumatology [address] [place] [address] Shanna Muller MD [address] [place] [address] RTC after DXA- 6-12 mo f/u documented as of this encounter Visit Diagnoses Not on filedocumented in this encounter Care Teams Ping Pong Table Assembler Relationship Specialty Start Date End Date Santino Aviles MD [address] [place] [address] PCP - General Family Medicine 06/15/24 Sammy Apple DO [address] [place] [address] Orthopedics 10/02/23 Catalina Watson MD [address] [facility] [address] [place] [address] Referring Dermatology 05/14/24 documented as of this encounter
--- OUTSIDE RECORDS SUMMARY | 2025-03-18 10:48 | XMS_ITS | Encounter Summary ---
Author Organization Address [address] [place] [address] Care Team Providers Care Pl Sql Programmer Name Role Phone Sammy Apple DO Unavailable [phone] Marisela Falk APRN.[facility] Primary Care Provider Catalina Watson MD Unavailable [phone] Santino Aviles MD Primary Care Provider [phone] Source Comments In the event this information is protected by the Federal Confidentiality of Alcohol and Drug AbusePatient Records regulations: The Federal rules restrict any use of the information to criminally investigate or prosecute any alcohol or drug abuse patient. Encounter Details Date Type Department Care Team (Late st Contact Info) Description 04/06/2024 Patient [facility]-[address] [place] [address] Britt Gottlieb RPh At your next appointment, choose Pharmacy. Social History Tobacco Use Types Packs/Day Years [...] is lower risk 5 10/01/2023 Data from: https://www.neighborhoodatlas.medicine.[facility] /. Last address used for calculation [id number] 10/01/2023 Comments No Sex [...] Description 03/22/2025 9:00 AM EDT Results Only [facility] [address] [place] [address] [place] [address] labs 02/14/2026 9:00 AM EDT Office Visit Rheumatology [address] [place] [address] Shanna Muller MD [address] [facility] [place] [address] RTC after DXA- 6-12 mo f/u documented as of this encounter Visit Diagnoses Not on filedocumented in this encounter Care Teams Pl Sql Programmer Relationship Specialty Start Date End Date Marisela Falk APRN.DIRECTOR MUSIC [address] [place] [address] PCP - General 12/23/23 06/14/24 Santino Aviles MD [address] [place] [address] PCP - General Family Medicine 06/15/24 Sammy Apple DO [address] [place] [address] Orthopedics 10/02/23 Catalina Watson MD [address] [address] Referring Dermatology 05/14/24 documented as of this encounter
--- OUTSIDE RECORDS SUMMARY | 2025-03-18 10:48 | XMS_ITS | Encounter Summary ---
Author Organization [facility] Address [address] [place] [address] Care Team Providers Care Technology Methodology Consultant Name Role Phone Sammy Apple Oswald DO Unavailable [phone] Catalina Watson MD Unavailable [phone] Santino Aviles MD Primary Care Provider [phone] Source Comments In the event this information is protected by the Federal Confidentiality of Alcohol and Drug AbusePatient Records regulations: The Federal rules restrict any use of the information to criminally investigate or prosecute any alcohol or drug abuse patient.[facility] Encounter Details Date Type Department Care Team (Late st Contact Info) Description 02/10/2025 Patient [facility] HB-3 [address] [place] [address] Britt Gottlieb RPh At your next appointment, choose [facility] Social History Tobacco Use Types Packs/Day Years Used Date Smoking Tobacco: Never Smokeless Tobacco: Never Alcohol Use Standard Drinks/Week Comments Yes 0 (1 standard drink = 0.6 oz pur e alcohol) week-ends PHQ-2 Answer Date Recorded PHQ-2 score 0 06/05/2024 Area Deprivation Index Answer Date Rudy rded National Score (1-100), jero r number is lower risk 67 10/01/2023 State Score (1-10), lower number is lower risk 5 10/01/2023 Data from: https://www.neighborhoodatlas.[facility] /. Last address used for calculation [id number] 10/01/2023 Comments No Sex and [...] Description 03/22/2025 9:00 AM EDT Results Only [facility] [address] [place] [address] [place] [address] labs 02/14/2026 9:00 AM EDT Office Visit Rheumatology [address] [facility] [place] [address] Shanna Muller MD [address] [facility] [place] [address] RTC after DXA- 6-12 mo f/u documented as of this encounter Visit Diagnoses Not on filedocumented in this encounter Care Teams Technology Methodology Consultant Relationship Specialty Start Date End Date Santino Aviles MD [address] [place] [address] PCP - General Family Medicine 06/15/24 Sammy Apple DO [address] [place] [address] Orthopedics 10/02/23 Catalina Watson MD [address] [facility] [address] [place] [address] Referring Dermatology 05/14/24 documented as of this encounter
--- OUTSIDE RECORDS SUMMARY | 2025-03-18 10:48 | XMS_ITS | Encounter Summary ---
Author Organization [facility] Address [address] [place] [address] Care Team Providers Care Box Truck Washer Name Role Phone Sammy Apple DO Unavailable [phone] Marisela Falk APRN.[facility] Primary Care Provider Catalina Watson MD Unavailable [phone] Santino Aviles MD Primary Care Provider [phone] Source Comments In the event this information is protected by the Federal Confidentiality of Alcohol and Drug AbusePatient Records regulations: The Federal rules restrict any use of the information to criminally investigate or prosecute any alcohol or drug abuse patient.[facility] Encounter Details Date Type Department Care Team (Late st Contact Info) Description 02/03/2024 [place] [address] Provider, [facility] Important information about your scheduled Allergy and Immunology appointment Social History Tobacco Use Types Packs/Day Years [...] is lower risk 5 10/01/2023 Data from: https://www.neighborhoodatlas.medicine.[facility].edu /. Last address used for calculation [id number] 10/01/2023 Comments No Sex [...] Description 03/22/2025 9:00 AM EDT Results Only [facility] [address] [place] [address] [place] [address] labs 02/14/2026 9:00 AM EDT Office Visit Rheumatology [address] [facility] [place] [address] Shanna Muller MD [address] [place] [address] RTC after DXA- 6-12 mo f/u documented as of this encounter Visit Diagnoses Not on filedocumented in this encounter Care Teams Box Truck Washer Relationship Specialty Start Date End Date Marisela Falk APRN.[facility] [address] [place] [address] PCP - General 12/23/23 06/14/24 Santino Aviles MD [address] [place] [address] PCP - General Family Medicine 06/15/24 Sammy Apple DO [address] [place] [address] Orthopedics 10/02/23 Catalina Watsno MD [address] [address] Referring Dermatology 05/14/24 documented as of this encounter
--- OUTSIDE RECORDS SUMMARY | 2025-03-18 10:48 | XMS_ITS | Clinical Summary ---
Author Organization [facility] Address [address] [place] [address] Care Team Providers Care Trimmer And Reinforcer Name Role Phone Sammy Apple DO Unavailable [phone] Catalina Watson MD Unavailable Santino Aviles MD Primary Care Provider [phone] Allergies Active Allergy Reactions Criticality Noted Date Comments Apixaban Hives 04/14/2024 Cephalexin Hives Medium 10/18/2004 Penicillins Hives Medium 01/05/2004 Tree Nuts Anaphylaxis 04/14/2024 Medications CITRACAL 500 MG (2,376 MG) EFFERVESCENT TABIndications:Ot her and unspecified nonspecific immunological findings,Alopecia Take one(1) tablet two(2) times daily. 0 006 Active fluticasone (FLONASE) 50 mcg/actuation nasal spray 1 [place] daily at bedtime. in each nostril. 0 011 Active Cholecalciferol, Vitamin D3, 1,000 unit ORAL Tab Take 1 tablet by mouth once daily. 0 011 Active EPIPEN 2-SHANE 0.3 mg/0.3 mL (1:1,000) atIn 014 Active ondansetron orally disintegrating (ZOFRAN ODT) 4 mg disintegrating tabletIndications :Nausea Take 1 tablet by mouth every 8 hours as needed. 90 tablet 1 024 Active tiotropium bromide (SPIRIVA WITH HANDIHALER INHALATION) Inhale 1 Puff as instructed once daily. Active montelukast sodium (SINGULAIR ORAL) Take 10 mg by mouth two times a day. Active semaglutide (OZEMPIC) 2 mg/dose (8 mg/3 mL) pen injector Inject 2 mg subcutaneously one time a week. Active furosemide (LASIX) 20 mg tablet Take 20 mg by mouth once daily. Active potassium chloride ER (KLOR-CON) 20 mEq tablet Take 20 mEq by mouth two times a day. Active L.acidophilus-L.r hamnosus (PROBIOTIC) 15 billion cell capsule Take 1 capsule by mouth once daily. Align Active ondansetron (ZOFRAN) 4 mg tablet Take 1 tablet by mouth every 8 hours as needed for nausea/vomiting. 10 tablet 1 Active upadacitinib tablet ER 24 hr 15 mg (RINVOQ)Indicatio ns:Rheumatoid arthritis of multiple sites without rheumatoid factor (HCC) Take 1 tablet by mouth once daily. 30 [address] (PROTONIX) 40 mg tablet Take 40 mg by mouth once daily. 024 Active levothyroxine (SYNTHROID) 137 mcg tablet Take 1 tablet by mouth once daily. Active metoprolol succinate ER (TOPROL XL) 25 mg 24 hr tablet TAKE 1 TABLET BY MOUTH EVERY DAY IN ADDITION TO 50MG DOSE, FOR TOTAL DOSE OF 75MG DAILY Active metoprolol succinate ER (TOPROL XL) 50 mg 24 hr tablet Take 50 mg by mouth once daily. Active fluticasone-salme terol (ADVAIR) 500-50 mcg/dose dsdv INHALE 1 PUFF BY MOUTH TWICE A DAY *RINSE MOUTH AFTER USE* 025 Active dupilumab (DUPIXENT SYRINGE) 100 mg/0.67 mL injection Active cyclobenzaprine (FLEXERIL) 10 mg tablet Take by mouth. 023 Active celecoxib (CELEBREX) 200 mg capsule TAKE 1 CAPSULE BY MOUTH TWICE A DAY 180 capsule 2 025 Active celecoxib (CELEBREX) 200 mg capsule Take 1 capsule by mouth two times a day. 180 capsule 2 025 2024 Discontinued doxycycline monohydrate 100 mg tablet Take 1 tablet by mouth two times a day for 5 days. 10 tablet 025 2024 Active Problems Problem Noted Date Diagnosed Date Obesity, Class III, BMI >= 40 05/21/2024 Rupture of operation wound 05/18/2024 Postoperative pain 04/15/2024 S/P shoulder surgery 04/14/2024 Inappropriate sinus tachycardia 03/30/2024 Assessment & Plan (03/30/2024 4:21 PM EDT): Assessment: Stable, on metoprolol. Follows with outside cardiology at [facility] 03/23/24 Oswald Curry PA-C. Pt reports that she was previously having SOB when walking. Pt reports SOB has resolved since starting metoprolol. RRR on exam today. Leg swelling 03/30/2024 Assessment & Plan (03/30/2024 4:26 PM EDT): Assessment: Ongoing BLE edema since hospitalizations in November and December. On Lasix, which is helping. Pt reports that edema is worse today d/t doing a lot of driving today to appointments (pt drove over an hour and a half to get to her [facility] appointment today). GERD (gastroesophageal reflux disease) Assessment & Plan (03/30/2024 4:22 PM EDT): Assessment: Stable, sx managed on lansoprazole. Assessment & Plan (12/20/2023 10:05 AM EDT): Assessment: Managed and stable with current medication. Denies difficulty swallowing or any bleeding. Diabetes 12/20/2023 Assessment & Plan (03/30/2024 4:23 PM EDT): Assessment: Controlled on Ozempic (on Saturdays). Monitors BG at home. FBS 95 per pt. A1C 5.6% 11/2023. A1C pending. Pt instructed to hold Ozempic within 1 week of surgery, pt verbalized understanding. Assessment & Plan (12/26/2023 11:13 AM EDT): Assessment: Currently taking ozempic, takes on Saturdays, instructed to hold on January 03, restart following surgery. Hemoglobin A1C (%) Date Value 12/20/2023 5.6 Primary basal cell carcinoma (BCC) of right [address] 12/20/2023 Assessment & Plan (12/20/2023 10:07 AM EDT): Assessment: underwent cryotherapy, states resolved PONV (postoperative nausea and vomiting) 024 Assessment & Plan (03/30/2024 3:53 PM EDT): Assessment: Pt reports PONV with previous surgeries/procedures. Assessment & Plan (12/20/2023 9:38 AM EDT): Assessment: states meds work well Elevated blood pressure read ing in office with white coat syndrome, without diagnosis of hypertension 12/20/2023 Assessment & Plan (03/30/2024 4:20 PM EDT): Assessment: BP today 119/74. Pt was recently started on metoprolol for IST per outside cardiology. Assessment & Plan (12/20/2023 10:01 AM EDT): Assessment: stable, asymptomatic for CP, SOB, palpitations. States BP runs higher in medical offices. Last 5 Encounter BP Readings: Date: BP: 12/20/2023 132/84 05/07/2022 150/78 01/27/2014 120/80 05/06/2012 118/74 10/30/2011 116/76 Loose orthopedic implant 11/04/2023 Failed orthopedic implant 10/14/2023 Assessment & Plan (12/20/2023 10:08 AM EDT): Assessment: left shoulder, presents for surgical intervention. Denies pain. S/P reverse total shoulder arthroplasty, left Encounter for long-term (current) use of NSAIDs 10/01/2023 Vitamin D deficiency 10/01/2023 Personal history of other medical treatment 08/2023 Bilateral chronic knee pain 10/01/2023 Nausea 10/01/2023 Anemia 12/05/2022 Assessment & Plan (12/26/2023 11:13 AM EDT): Assessment: Stable. Denies bleeding. Hemoglobin (g/dL) Date Value 12/25/2023 13.1 05/07/2022 12.6 07/03/2007 13.7 10/10/2005 13.3 08/08/2005 14.1 History of pulmonary embolism 05/22/2022 Assessment & Plan (03/30/2024 4:22 PM EDT): Assessment: 2019, following COVID. Pt was treated with Xarelto x 1 year. No recurrence and no AC currently. Assessment & Plan (12/20/2023 10:08 AM EDT): Assessment: following bout COVID in 2019. Was on xarelto for a year, completed course of thinner. No recurrence. 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 Follows with F rheumatology, Dr. Muller. Pt was instructed by Dr. Muller to hold Rinvoq and Celebrex for 1 week prior to surgery, and restart Rinvoq 1-2 weeks post-op if stable, free of infection and off abx. Pt aware of instructions. Assessment & Plan (12/20/2023 10:07 AM EDT): Assessment: follows with Dr. Muller, on Rinvoq. Stable. 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 Hyperlipidemia 05/06/2012 Assessment & Plan (03/30/2024 4:19 PM EDT): Assessment: No RX currently. Monitored by PCP. Assessment & Plan (12/20/2023 10:04 AM EDT): Assessment: no current medication, 11/18 LDL 129, wants to discuss with PCP prior to starting statin Rheumatoid arthritis(714.0) 04/18/2011 Asthma without status asthmaticus 07/01/2010 Assessment & Plan (03/30/2024 4:19 PM EDT): Assessment: Stable, well controlled on Singulair BID, Advair and Spiriva. Pt reports that she uses albuterol rarely. Follows with outside allergy Dr. Arias JULIEN 03/25/[address] Dupree JULIEN 02/04/24. Lungs CTAB, SpO2 97% on RA. Assessment & Plan (12/20/2023 10:05 AM EDT): Assessment: stable and asymptomatic, uses inhalers. No recent URI. Lungs clear to auscultation, follows with pulmonology annually in [facility] 05/27/2006 Unspecified hypothyroidism 05/27/2006 Assessment & Plan (12/20/2023 10:05 AM EDT): Assessment: stable with current medication regimen Other atopic dermatitis and related conditions 1 07/27/2005 Resolved Problems Problem Noted Date Diagnosed Date Resolved Date Hypertension 12/20/2023 12/20/2023 Encounters Date Type Department Care Team Description 03/13/2025 Patient Update [facility] [address] [place] [address] Elvira Olivas DO 03/12/2025 8:12 PM EDT - 03/13/2025 12:09 AM EDT Emergency [facility] [address] [place] [address] Elvira Olivas DO Minotti, Matthew, MD Fall Discharge Disposition: Home 03/12/2025 Travel 03/12/2025 Refill Rheumatology [address] [address] Gabo Perez APRN.MEDIA TRAFFIC MANAGER Refill Request 02/15/2025 7:40 AM EDT Office Visit Rheumatology [address] [place] [address] Shanna Muller MD Rheumatoid arthritis of multiple sites without rheumatoid factor (HCC) (Primary Dx); Postmenopausal osteoporosis of multiple sites; Cyclic citrullinated peptide (CCP) antibody positive; CORTNEY positive; Bilateral hand pain; Bilateral chronic knee pain; Chronic ankle pain, bilateral; Elevated sed rate; Elevated LFTs; Vitamin D deficiency; Elevated C-reactive protein (CRP); Secondary osteoarthritis of multiple sites; Family history of rheumatoid arthritis; Long-term use of high-risk medication 02/13/2025 Travel 02/10/2025 Patient [facility] [address] [place] [address] Britt Gottlieb RPh At your next appointment, choose [facility] 12/18/2024 Telephone Endocrinology [address] [place] [address] Shanna Muller MD Medication Problem from Last 3 Months Immunizations Immunization Administration Dates Next Due tetanus diphtheria pertussis (Tdap) vaccine, age 7+ yr (ADACEL, BOOSTRIX) 03/12/2025 Family History Medical History Relation Comments Cerebral Embolism Father CVA, aneurysm, [place], Cancer Mother normal [Other] Sister 4 None Sister 5 None Sister 6 Anesthesia Problems No Family History Breast Cancer No Family History no known famil y h/o breast or ovarian cancer Relation Status Comments Father Mother Sister 1 Alive Sister 2 Alive Sister 3 Alive Sister 4 Sister 5 Sister 6 Social History Tobacco Use Types Packs/Day Years Used Date Smoking Tobacco: Never Smokeless Tobacco: Never Tobacco Cessation:Counseling Given: Yes Alcohol Use Standard Drinks/Week Comments Yes 0 (1 standard drink = 0.6 oz pur e alcohol) week-ends PHQ-2 Answer Date Recorded PHQ-2 score 0 06/05/2024 Area Deprivation Index Answer Date Rudy rded National Score (1-100), lowe r number is lower risk 67 03/13/2025 State Score (1-10), lower nu mber is lower risk 5 03/13/2025 Data from: https://www.neighborhoodatlas.medicine.[facility].e du/. Last address used for calculation [address] 03/13/2025 Comments No Sex and Gender Information Value Date Recorded Sex Assigned at Not on file Legal Sex Female 8:53 AM EST Gender Identity Not on file Sexual Orientation Not on file Occupation Industry Job Start Date Job End Date Not on file Not on file Not on file Not on file Last Filed Vital Signs [...] Mass Index 39.1 03/12/2025 8:14 PM EDT Plan of Treatment Upcoming Encounters Date Type Department Care Team (Late st Contact Info) Description 03/22/2025 9:00 AM EDT Results Only [facility] [address] [place] [address] [place] [address] labs 02/14/2026 9:00 AM EDT Office Visit Rheumatology [address] [place] [address] Shanna Muller MD [address] [address] RTC after DXA- 6-12 mo f/u Health Maintenance Due Date Last Done Comments Diabetic Foot Exam 11/04/1969 Dilated Retinal Exam 11/04/1969 Urine Albumin:Creatinine Ratio 11/04/1969 Annual PCP Team Chronic Dise ase Visit 11/04/1977 Anxiety Screening 11/04/1977 Depression Screening 11/04/1977 HIV Screening 11/04/1977 LDL Cholesterol 11/04/1977 Shingrix Vaccine (1 of 2) 11/04/1978 CT Colonography 11/04/2004 Cologuard (FIT-DNA) 11/04/2004 Fecal Occult Blood 11/04/2004 Sigmoidoscopy 11/04/2004 Colonoscopy 01/27/2011 01/27/2010 Colorectal Cancer Screening 01/27/2011 Cervical Cancer Screening 01/27/2013 01/28/2012 Mammogram Screening 06/01/2021 06/01/2020, 0 HbA1C 09/27/2024 03/30/2024, 11/30, 01/18/2022, Additional history exists Advance Directive Discussion 11/04/2024 Bone Density Screening 11/04/2024 Influenza Vaccine (#1) 2025 4, 05/14/2023, 07/24/2022, Additional history exists DTaP,Tdap,Td Vaccine (2 - Td or Tdap) 03/12/2035 03/12/2025 RSV Vaccine Completed 06/07/2023 Pneumococcal Vaccine: 50+ Completed 2023, 06/07/2023, 05/26/2018, Additional history exists Hepatitis C Screening Completed 12/03/2024, 022 Medical Devices Implanted Type Area Bobbin Coil Winder Device Identifier Shelf Expiration Date Model / Serial / Lot Cement Simplex P Tobramycin Bone Full Dose Radiopaque Preblend Sterile - [id number] Implanted:Qty : 1 on 04/14/2024 at [facility] Cement / Putty Left: Bone - Shoulder [employer] 06/30/2025 [id number] / / [id number] Cement Simplex P Bone Radiopaque Full Dose Sterile - [id number] Implanted:Qty : 1 on 04/14/2024 at [facility] Cement / Putty Left: Bone - Shoulder [employer] 01/28/2026 [id number] / / [id number] Procedures Procedure Name Priority Date/Time Associated Diagnosis Comments HIGH SENSITIVITY TROPONIN T (SECOND) STAT 03/12/2025 11:30 PM EDT [facility] ED NOTEWRITER PROCEDURE LACERATION REPAIR [...] EDT EKG Routine 03/12/2025 8:26 PM EDT HEPATITIS C ANTIBODY IA WITH CONFIRMATION Routine 12/03/2024 10:55 AM EDT Elevated LFTs HEMOGLOBIN A1C Routine 03/30/2024 4:21 PM EDT Preoperative examination Type 2 diabetes mellitus without complication, without long-term current use of insulin (HCC) from Last 3 Months or Most Recently Relevant to Health Maintenance Results * HIGH SENSITIVITY TROPONIN T (SECOND) (03/12/2025 11:30 PM EDT) Pathologist [facility] DOMENICA High Sensitivity 10 <12 ng/L 03/13/2025 12:10 AM EDT [facility] Blood BLOOD SPECIMEN / Unknown Venipuncture / Unknown 03/12/2025 11:30 PM EDT 03/12/2025 11:40 PM EDT Elvira Olivas DO LABORATORY Final Result [facility] [address] [place] [address], [place] * LAC REPAIR (03/12/2025 10:45 PM EDT) Narrative Elvira Olivas DO - 03/12/2025 10:45 PM EDT Elvira Olivas DO 03/12/2025 10:51 PM LAC REPAIR Date/Time: 03/12/2025 10:45 PM Performed by: Elvira Olivas DO Authorized by: Elvira Olivas DO Informed Consent Consent Obtained: Verbal [employer] Protocol A moment to CARE was completed. [...] team (including bedside nurse for hospitalized patients). [facility]ED[facility] Final Result * POTASSIUM (03/12/2025 10:24 PM EDT) Potassium 4.0 3.7 - 5.1 mmol/L 03/12/2025 10:58 PM EDT [facility] Blood BLOOD SPECIMEN / Unknown Venipuncture / Unknown 03/12/2025 10:24 PM EDT 03/12/2025 10:31 PM EDT [facility] Final Result [facility] [address] * HIGH SENSITIVITY TROPONIN T (INITIAL) (03/12/2025 10:24 PM EDT) DOMENICA High Sensitivity 8 <12 ng/L 03/12/2025 10:51 PM EDT [facility] Blood BLOOD SPECIMEN / Unknown Venipuncture / Unknown 03/12/2025 10:24 PM EDT 03/12/2025 10:31 PM EDT [facility] Final Result [facility] [address] * MAGNESIUM (03/12/2025 9:46 PM EDT) Magnesium 1.9 1.7 - 2.3 mg/dL 03/12/2025 10:18 PM EDT [facility] Blood BLOOD SPECIMEN / Unknown Venipuncture / Unknown 03/12/2025 9:46 PM EDT 03/12/2025 9:53 PM EDT Elvira Olivas DO LABORATORY Final Result [facility] [address] [place] [address], * (ABNORMAL) COMPLETE BLOOD COUNT (03/12/2025 9:46 PM EDT) WBC 11.12(H) 3.70 - 11.00 k/uL 03/12/2025 9:56 PM EDT [facility] RBC 3.97 3.90 - 5.20 m/uL 03/12/2025 9:56 PM EDT [facility] Hemoglobin 11.5 11.5 - 15.5 g/dL 03/12/2025 9:56 PM EDT [facility] Hematocrit 35.6(L) 36.0 - 46.0 % 03/12/2025 9:56 PM EDT [facility] MCV 89.7 80.0 - 100.0 fL 03/12/2025 9:56 PM EDT [facility] MCH 29.0 26.0 - 34.0 pg 03/12/2025 9:56 PM EDT [facility] MCHC 32.3 30.5 - 36.0 g/dL 03/12/2025 9:56 PM EDT [facility] RDW-CV 14.9 11.5 - 15.0 % 03/12/2025 9:56 PM EDT [facility] Platelet Count 308 150 - 400 k/uL 03/12/2025 9:56 PM EDT [facility] MPV 9.1 9.0 - 12.7 fL 03/12/2025 9:56 PM EDT [facility] Absolute nRBC <0.01 <0.01 k/uL 03/12/2025 9:56 PM EDT [facility] Blood BLOOD SPECIMEN / Unknown Venipuncture / Unknown 03/12/2025 9:46 PM EDT 03/12/2025 9:53 PM EDT Elvira Julianmaria e YOST LABORATORY Final Result [facility] [address] [place] [address], * (ABNORMAL) BASIC METABOLIC PANEL (03/12/2025 9:46 PM EDT) Glucose 102(H) 74 - 99 mg/dL 03/12/2025 10:18 PM EDT [facility] Comment: The [place] Diabetes Association (ADA) provides guidance for cutoff [...] Standards of Medical Care in Diabetes 2016, [place] [employer]. Diabetes Care. 2016.39(Suppl 1). BUN 22(H) 7 - 21 mg/dL 03/12/2025 10:18 PM EDT [facility] Creatinine 0.72 0.58 - 0.96 mg/dL 03/12/2025 10:18 PM EDT [facility] Sodium 138 136 - 144 mmol/L 03/12/2025 10:18 PM EDT [facility] Potassium 03/12/2025 10:18 PM EDT [facility] Comment:Unable to assay due to interference from hemolysis. Suggest reorder as clinically indicated. Chloride 101 98 - 107 mmol/L 03/12/2025 10:18 PM EDT [facility] CO2 26 22 - 30 mmol/L 03/12/2025 10:18 PM EDT [facility] Anion Gap 11 8 - 15 mmol/L 03/12/2025 10:18 PM EDT [facility] Calcium, Total 9.0 8.5 - 10.2 mg/dL 03/12/2025 10:18 PM EDT [facility] Estimated Glomerular Filtration Rate 93 >=60 mL/min/1. 73m 03/12/2025 10:18 PM EDT [facility] Comment:Estimated Glomerular Filtration Rate (eGFR) is [...] 03/12/2025 9:53 PM EDT us Elvira Olivas LABORATORY Final Result [facility] [address] [place] [address], * XR KNEE INJURY 4V AP/LAT/OBLS LEFT (03/12/2025 9:18 PM EDT) Anatomical Region Laterality Modality Knee Radiographic Chiquita ging 03/12/2025 9:18 PM EDT Impressions 03/12/2025 10:35 PM EDT IMPRESSION: 1. Uncomplicated appearance of medial compartment arthroplasty. 2. Mild patellofemoral arthrosis. Criminal Lawyer: PSCB Transcribe Date/Time: Mar 12 2025 10:30P Dictated [...] tissues are grossly unremarkable. Procedure Note Provider, [facility] [place] - 03/12/2025 * * *Final Report* * [...] medial compartment arthroplasty. 2. Mild patellofemoral arthrosis. Criminal Lawyer: [facility] Transcribe Date/Time: Mar 12 2025 10:30P Dictated [...] tibial tuberosity which may represent foreign bodies. Criminal Lawyer: [facility] Transcribe Date/Time: Mar 12 2025 10:05P Dictated by : FATOUMATA CONNELL MD This examination was interpreted and the report reviewed and electronically signed by: FATOUMATA CONNELL MD on Mar 12 2025 10:19PM EST Narrative 03/12/2025 10:21 PM EDT * * *Final Report* * * DATE OF EXAM: Mar 12 2025 8:41PM [facility] [place] [address] - CT KNEE WO IVCON LT [...] knee arthroplasty are noted. Procedure Note Provider, [facility] [place] - 03/12/2025 * * *Final Report* * * DATE OF EXAM: Mar 12 2025 8:41PM [facility] – [place] [address] - CT KNEE WO IVCON LT [...] tibial tuberosity which may represent foreign bodies. Criminal Lawyer: DEBBIE Transcribe Date/Time: Mar 12 2025 10:05P [...] degenerative changes with C5-6 disc space narrowing. [facility] Transcribe Date/Time: Mar 12 2025 9:09P Dictated by : DILSHAD AC MD This examination was interpreted and the report reviewed and electronically signed by: DILSHAD AC MD on Mar 12 2025 9:21PM EST Narrative 03/12/2025 9:23 PM EDT * * *Final Report* * * DATE OF EXAM: Mar 12 2025 8:41PM [facility] – [place] [address] - CT CERVICAL SPINE WO IVCON [...] Counting reference: Craniocervical junction. Anatomic Variants: None. Furniture Mechanic (topogram) images: No additional findings. Alignment: No [...] facet arthrosis is present Procedure Note Provider, [facility] [place] - 03/12/2025 * * *Final Report* * * DATE OF EXAM: Mar 12 2025 8:41PM [facility] – [place] [address] - CT CERVICAL SPINE WO IVCON [...] Counting reference: Craniocervical junction. Anatomic Variants: None. Furniture Mechanic (topogram) images: No additional findings. Alignment: No [...] degenerative changes with C5-6 disc space narrowing. Criminal Lawyer: DEBBIE Transcribe Date/Time: Mar 12 2025 9:09P Dictated by : DILSHAD AC MD This examination was interpreted and the report reviewed and electronically signed by: DILSHAD AC MD on Mar 12 2025 9:21PM EST Elvira Olivas DO [facility] Final Result * CT BRAIN WO IVCON (03/12/2025 8:41 PM EDT) Anatomical Region Laterality Modality Head Computed Tomogra phy 03/12/2025 8:41 PM EDT Impressions 03/12/2025 9:16 PM EDT IMPRESSION: No acute intracranial hemorrhage identified. Criminal Lawyer: PSCB Transcribe Date/Time: Mar 12 2025 9:09P Dictated by : DILSHAD AC MD This examination was interpreted and the report reviewed and electronically signed by: DILSHAD AC MD on Mar 12 2025 9:14PM EST Narrative 03/12/2025 9:16 PM EDT * * *Final Report* * * DATE OF EXAM: Mar 12 2025 8:41PM [facility] – [place] [address] - CT BRAIN WO IVCON / [...] images: No additional findings. Procedure Note Provider, [facility] [place] - 03/12/2025 * * *Final Report* * * DATE OF EXAM: Mar 12 2025 8:41PM [facility] – [place] [address] - CT BRAIN WO IVCON / [...] IMPRESSION IMPRESSION: No acute intracranial hemorrhage identified. Criminal Lawyer: DEBBIE Transcribe Date/Time: Mar 12 2025 9:09P Dictated by : DILSHAD AC MD This examination was interpreted and the report reviewed and electronically signed by: DILSHAD AC MD on Mar 12 2025 9:14PM EST us Elvira Olivas DO [facility] Final Result * EKG (03/12/2025 8:26 PM EDT) Ventricular Rate 78 BPM [facility] Atrial Rate 78 BPM [facility] P-R Interval 174 ms [facility] QRS Duration 92 ms [facility] QT Interval 394 ms [facility] QTC Calculation (Bazett) 449 ms [facility] Calculated P [place] 35 degrees [facility] Calculated R [place] -14 degrees [facility] Calculated T [place] 97 degrees [facility] 03/12/2025 8:26 PM EDT Impressions [facility] - 03/12/2025 9:22 PM EDT SINUS RHYTHM WITH OCCASIONAL PREMATURE VENTRICULAR COMPLEXES POSSIBLE LEFT ATRIAL ENLARGEMENT CANNOT RULE OUT ANTERIOR INFARCT , AGE UNDETERMINED T WAVE ABNORMALITY, CONSIDER LATERAL ISCHEMIA ABNORMAL ECG No Stemi Confirmed by ELVIRA OLIVAS DO ([id number]) on 03/12/2025 9:22:56 PM Narrative [facility] - 03/12/2025 9:22 PM EDT NAME : IZABELLA GOMEZ PID : [id number] : 1960 Gender : Female Race : ORD : Procedure Date : Mar 12 2025 20:26:52 Edit Date : Mar 12 2025 21:22:58 Diagnosis: SINUS RHYTHM WITH OCCASIONAL PREMATURE VENTRICULAR COMPLEXES POSSIBLE LEFT ATRIAL ENLARGEMENT CANNOT RULE OUT ANTERIOR INFARCT , AGE UNDETERMINED T WAVE ABNORMALITY, CONSIDER LATERAL ISCHEMIA ABNORMAL ECG No Stemi Confirmed by ELVIRA OLIVAS DO ([id number]) on 03/12/2025 9:22:56 PM Test Reason : Location : 1 : ER ED Overread By : ELVIRA OLIVAS DO Edited By : ELVIRA OLIVAS DO Referred By : , Acquired by : sc, us [facility] Provider CARDIOLOGY_ME Final Result [facility] * HEPATITIS C ANTIBODY IA WITH CONFIRMATION (12/03/2024 10:55 AM EDT) Hep C Antibody IA Negative Negative 12/03/2024 10:06 PM EDT [facility] Comment:The result suggests no evidence of infection with Hepatitis C virus. Should recent infection be suspected, repeat testing may be considered 4-6 weeks after this draw. Blood BLOOD SPECIMEN / Unknown Venipuncture / Unknown 12/03/2024 10:55 AM EDT 12/03/2024 10:56 AM EDT Narrative [facility] - 12/03/2024 10:06 PM EDT Result rechecked. us Shanna Muller MD LABORATORY Final Result [facility] [place] [address], * (ABNORMAL) HEMOGLOBIN A1C (03/30/2024 4:21 PM EDT) Hemoglobin A1C 6.0(H) 4.3 - 5.6 % 03/31/2024 9:30 AM EDT [facility] Comment:[place] Diabetes As sociation guidelines indicate that patients with HgbA1c in the range 5.7-6.4% are at increased risk for development of diabetes, and intervention by lifestyle modification may be beneficial. HgbA1c greater or equal to 6.5% is considered diagnostic of diabetes. Estimated Average Glucose 126 mg/dL 03/31/2024 9:30 AM EDT [facility] Comment:eAG: (Estimated aver age glucose) is a calculated value from HgbA1c and is ict sales representative of the average blood glucose level in the last 2-3 month period. Blood BLOOD SPECIMEN / Unknown Venipuncture / Unknown 03/30/2024 4:21 PM EDT 03/30/2024 4:21 PM EDT us Cathleen Ty PA-C LABORATORY Final Result [facility] [address] from Last 3 Months or Most Recently Relevant to Health Maintenance Insurance [employer] P[employer] Care Teams Trimmer And Reinforcer Relationship Specialty Start Date End Date Santino Aviles MD [address] [place] [address] PCP - General Family Medicine 06/15/24 Sammy Apple DO [address] [place] [address] Orthopedics 10/02/23 Catalina Watson MD [address] [address] Referring Dermatology 05/14/24
--- OUTSIDE RECORDS SUMMARY | 2025-03-18 10:48 | XMS_ITS | Encounter Summary ---
Author Organization [facility] Address [address] [place] [address] Care Team Providers Care Android Programmer Name Role Phone Tiffanie Guerrero MD Primary Care Provider [phone] Sammy Apple DO Unavailable [phone] Marisela Falk APRN.[facility] Primary Care Provider Catalina Watson MD Unavailable [phone] Santino Aviles MD Primary Care Provider [phone] Source Comments In the event this information is protected by the Federal Confidentiality of Alcohol and Drug AbusePatient Records regulations: The Federal rules restrict any use of the information to criminally investigate or prosecute any alcohol or drug abuse patient.[facility] Encounter Details Date Type Department Care Team (Late st Contact Info) Description 11/08/2023 Get Medical Advice Orthopaedics [address] [address] John Bonds MD [address] [place] [address] Surgery Social History Tobacco Use Types Packs/Day Years [...] is lower risk 5 10/01/2023 Data from: https://www.neighborhoodatlas.medicine.[facility] /. Last address used for calculation [address] 10/01/2023 Comments No Sex [...] Description 03/22/2025 9:00 AM EDT Results Only [facility] [address] [place] [address] labs 02/14/2026 9:00 AM EDT Office Visit Rheumatology [address] [place] [place] [address] Shanna Muller MD [address] [place] [address] RTC after DXA- 6-12 mo f/u documented as of this encounter Visit Diagnoses Not on filedocumented in this encounter Care Teams Android Programmer Relationship Specialty Start Date End Date Tiffanie Guerrero MD [address] [place] [address] PCP - General 10/11/00 12/22/23 Marisela Falk, INTERNAL GRINDING MACHINE OPERATOR.ROLL FORMING MACHINE SET UP MECHANIC [address] [place] [address] PCP - General 12/23/23 06/14/24 Santino Aviles MD [address] [place] [address] PCP - General Family Medicine 06/15/24 Sammy Apple DO [address] [place] [address] Orthopedics 10/02/23 Catalina Watson MD [address] [place] [address] [place] [address] Referring Dermatology 05/14/24 documented as of this encounter
--- OUTSIDE RECORDS SUMMARY | 2025-03-18 10:48 | XMS_ITS | Encounter Summary ---
Author Organization [employer] Address [id number] [address] [place] [address] Care Team Providers Care Jet Pilot Name Role Phone Tiffanie Guerrero MD Primary Care Provider [phone] Encounter Details Date Type Department Care Team (Late st Contact Info) Description 09/17/2022 Telephone [facility] [address] [place] [address] Jessenia Hillman, RN Social History Tobacco Use Types Packs/Day Years [...] on file Sexual Orientation Not on file COVID-19 Exposure Response Date Recorded In the last month, have you been in contact with someone who was confirmed or suspected to have Coronavirus / COVID-19? No / Unsure 09/17/2022 12:48 PM EDT documented as of this encounter Miscellaneous Notes * Telephone Encounter - Jessenia Hillman RN - 09/17/2022 9:05 AM EDTSummary: Change in medication/hospitalization over weekend Patient reported she was in [facility] over weekend with asthma flare-up. She is home now. They took her off the Trelegy and is now on Advair 250 BID and Singulair BID. Her CT was negative forblood clots and her CXR negative for pneumonia. Her PFT is scheduled 10/02/22 at [facility]. She will call to see if she can get in earlier. ([facility] is waiting for PFT results for her Leonides PA). * Telephone Encounter - Priyanka Mariee CMA - 09/17/2022 9:05 AM EDT Patient called in stating she moved up her PFT to Saturday. She stated when she walks a long distanceshe seems to still get winded. Patient is asking if there is anything else she can try? 09/17/22 KF * Telephone Encounter - Teresa Ferguson MD - 09/17/2022 9:05 AM EDT Thank you for the update. Without knowing the specific cause of her shortness of breath, it is difficult to select a medication to treat it. She may continue using Mucinex as needed to thin mucus. She may also try saline sinus rinses, such as a Tsephane Med bottle or Neti pot, to clear nasal and sinus mucus. She must use distilled or boiled/ then cooled water to prevent infection. I would like her to complete a 6 minute walk test with her PFTs. Priyanka: can you please call [facility] and check that they can do this? The order is in. Thank you. * Telephone Encounter - Priyanka Mariee CMA - 09/17/2022 9:05 AM EDT I called [facility] they stated they can do this test. Called patient to advise above and no answer. Unable to leave a voicemail 09/18/22 KF * Telephone Encounter - Teresa Ferguson MD - 09/17/2022 9:05 AM EDT Thank you. She will complete complete PFT with bronchodilator and 6 min walk test this Saturday. documented in this encounter Plan of Treatment Scheduled Orders Name Type Priority Associated Diagnoses Orde r Schedule Six minute walk Respiratory Care Routine Dyspnea on exertion 1 Occurrences starting 09/17/2022 until 09/18/2023 documented as of this encounter Visit Diagnoses Diagnosis Dyspnea on exertion- Primary Other dyspnea and respiratory abnormality documented in this encounter Care Teams Jet Pilot Relationship Specialty Start Date End Date Tiffanie Guerrero MD PCP - General Family Medicine 10/06/18 documented as of this encounter
--- OUTSIDE RECORDS SUMMARY | 2025-03-18 10:48 | XMS_ITS | Clinical Summary ---
Author Organization [facility] Address [facility] [place] [address] Care Team Providers Care Hospital Aide Name Role Phone Tiffanie Guerrero MD Primary Care Provider Allergies Active Allergy Reactions Criticality Noted Date Comments Cephalexin Hives 05/09/2015 Penicillins Hives 05/09/2015 Medications fluticasone-martha meterol (ADVAIR DISKUS) 250-50 mcg/dose diskus inhaler Inhale 1 puff 2 (two) times a day Active zafirlukast (ACCOLATE) 20 MG tablet Take 20 mg by mouth 2 (two) times a day Active celecoxib (CELEBREX) 200 MG capsule Take 200 mg by mouth 2 (two) times a day Active fluticasone (FLONASE) 50 mcg/actuation nasal spray Instill 2 sprays into each nostril every morning . Active calcium carbonate (OS-LEA) 600 mg (1,500 mg) tablet Take 600 mg by mouth 2 (two) times a day with meals Active multivitamin (multivitamin) per tablet Take 1 tablet by mouth every morning . Active omeprazole (PRILOSEC) 40 MG capsule Take 40 mg by mouth every morning. Active cholestyramine (QUESTRAN) 4 gram powderIndicatio ns:chronic diarrhea Take 4 g by mouth every morning Reasons: Chronic Diarrhea. Active EPIPEN 2-SHANE 0.3 mg/0.3 mL AtIn USE ONLY DIRECTED FOR ALLERGIC REACTION, CALL 911 AND GO TO E.R. 1 06/21/2016 Active VENTOLIN HFA 90 mcg/actuation inhaler 2 puffs every 4 to 6 hours as needed. 1 06/21/2016 Active levothyroxine (SYNTHROID, LEVOTHROID) 137 MCG tablet Take 137 mcg by mouth every morning. Active metFORMIN (GLUCOPHAGE) 500 MG tablet Take 500 mg by mouth every morning. Active L.ACID/L.CASEI/ B.BIF/B.LUPE/FOS (PROBIOTIC BLEND ORAL) Take by mouth every morning. Active oxyCODONE-aceta minophen (PERCOCET) 5-325 mg per tablet Take 2 (two) tablets by mouth every 4 (four) hours as needed for pain. 30 tablet 05/16/2017 Active ondansetron (ZOFRAN, HYDROCHLORIDE,) 4 MG tablet Take 1 (one) tablet (4 mg total) by mouth every 6 (six) hours as needed for nausea. 30 tablet 1 05/16/2017 Active Active Problems Problem Noted Date Diagnosed Date Complication internal fixati on device such as nail, plate, or sabiha 10/28/2015 Acquired equinus deformity of left foot 05/24/20 15 Secondary osteoarthritis of left foot 05/24/2015 Deformity of left calcaneus 05/24/2015 Posterior tibial tendinitis of left leg 05/24/20 15 Osteoarthritis of ankle and foot 05/24/2015 Nontraumatic rupture of tendon 06/29/2012 Family History Medical History Relation Comments No Known Problems Brother Aneurysm Father Heart disease Father Anesthesia problems Mother Cancer Mother No Known Problems Sister Clotting disorder Neg Hx Deep vein thrombosis Neg Hx Pulmonary embolism Neg Hx Surgical complications Neg Hx Relation Status Comments Brother Father head Mother ponv Sister Social History Tobacco Use Types Packs/Day Years Used Date Smoking Tobacco: Never Smokeless Tobacco: Never Alcohol Use Standard Drinks/Week Comments Yes 0 (1 standard drink = 0.6 oz pur e alcohol) occasional Comments No Sex and Gender Information Value Date Recorded Sex Assigned at Not on file Legal Sex Female 10:57 PM EDT Gender Identity Not on file Sexual Orientation Not on file Last Filed Vital Signs Vital Sign Reading Time Taken Comments Blood Pressure 130/62 05/16/2017 2:45 PM EST Pulse 86 05/16/2017 3:00 PM EST Temperature 36.9 C (98.4 F) 05/16/2017 1:45 PM EST Respiratory Rate 16 05/16/2017 3:00 PM EST Oxygen Saturation 94% 05/16/2017 3:00 PM EST Inhaled Oxygen Concentration - - Weight 89.8 kg (198 lb) 05/13/2017 9:41 AM EST Height 149.9 cm (4' 11 ) 05/13/2017 9:41 AM EST Body Mass Index 39.99 05/13/2017 9:41 AM EST Plan of Treatment Health Maintenance Due Date Last Done Comments CT Colonography 1959 Colonoscopy 1959 Colorectal Cancer Screening/Monitoring 1959 Dexa Scan 1959 Fecal DNA 1959 Fecal occult blood test (FOBT,FIT) 1959 Tetanus: Every 10yrs 1959 Wellness Visit 11/04/1962 Depression Screening/Follow-Up (PHQ-2/9) 1971 HIV Screening 11/04/1974 Hepatitis C Screening 11/04/1977 Pap Smear 11/04/1980 Cervical Cancer Screening 11/04/1989 HPV/Cotest 11/04/1989 Pneumococcal Vaccine: Age 50+ (1 of 1 - PCV) 0 Zoster Vaccines (1 of 2) 11/04/2009 Falls Risk Assessment 11/04/2024 COVID-19 Vaccine ( season) 2025 Influenza Vaccine (#1) 2025 Respiratory Syncytial Virus Immunization: Risk, 60-74 Risk, or 75+ (1 - 1-dose 75+ series) 11/04/2034 Medical Devices Implanted Type Area Java Mobile Developer Device Identifier Shelf Expiration Date Model / Serial / Lot Graft 5cc Bone Biocomposite Strip Augmatrix - [id number] Implanted:Qty: 1 on 09/14/2016 by Shante Rayo DPM at [facility] Graft Left: Foot YUEN MED 01/28/2018 [id number] / / [id number] Allopure Bicortical 8mm Jimenez Implanted:Qty: 1 on 05/24/2015 by Shante Rayo DPM at [facility] Left: Foot [employer]UEN MED 06/01/2019 [id number] / / [id number] [id number] Augmatrix Biocomposite Bone Graft Strip - 5cc Implanted:Qty: 1 on 05/24/2015 by Shante Rayo DPM at [facility] Left: Foot 01/21/2018 [id number] / / [id number] Screw 3.5 X 20mm Prabhu Lock Ortholoc 3dsi - [id number] Implanted:Qty: 2 on 05/24/2015 by Shante Rayo DPM at [facility] Left: Foot YUEN MED [id number] / / Screw 3.5 X 24mm Prabhu Lock Ortholoc 3dsi - [id number] Implanted:Qty: 1 on 05/24/2015 by Shante Rayo DPM at [facility] Left: Foot YUEN MED [id number] / / Plate 20mm 2hl Claw Ii - [id number] Implanted:Qty: 2 on 05/24/2015 by Shante Rayo DPM at [facility] Left: Foot YUEN MED [id number] / / Edge Lock Plate Implanted:Qty: 1 on 09/14/2016 by Shante Rayo DPM at [facility] Left: Foot YUEN MED [id number] / / Locking Screw Implanted:Qty: 1 on 09/14/2016 by Shante Rayo DPM at [facility] Left: Foot YUEN MED [id number] / / Nonlock Screw Implanted:Qty: 1 on 09/14/2016 by Shante Rayo DPM at [facility] Left: Foot YUEN MED [id number] / / Sht Screw Implanted:Qty: 1 on 09/14/2016 by Shante Rayo DPM at [facility] Left: Foot YUEN MED [id number] / / Plate 2mm Lapidus Flat Ortholoc 3di Hallux - [id number] Implanted:Qty: 1 on 09/14/2016 by Shante Rayo DPM at [facility] Left: Foot YUEN MED [id number] / / Screw 3.5 X 20mm Lock Ortholoc 3di - [id number] Implanted:Qty: 3 on 09/14/2016 by Shante Rayo DPM at [facility] Left: Foot YUEN MED [id number] / / Screw 3.5 X 28mm Lock Ortholoc 3di - [id number] Implanted:Qty: 1 on 09/14/2016 by Shante Rayo DPM at [facility] Left: Foot VINTON MED [id number] / / Explanted Type Area Java Mobile Developer Device Identifier Shelf Expiration Date Model / Serial / Lot 3.5mm X 34mm Locking Screw Explanted:Qty: 1 on 05/24/2015 at [facility] Left: Foot VINTON MED [id number] / / Claw Plate Explanted:Qty: 1 on 10/28/2015 at [facility] Description:plate x 2 screws x 4 Plate 15mm 2hl Claw Ii - [id number] Implanted:Qty: 1 on 05/24/2015 by Shante Rayo DPM at [facility] Explanted:Qty: 1 on 09/14/2016 by Shante Rayo DPM at [facility] Left: Foot [employer] MED [id number] / / 3.5mm X 18mm Locking Screw Implanted:Qty: 1 on 05/24/2015 by Shante Rayo DPM at [facility] Explanted:Qty: 1 on 09/14/2016 by Shante Rayo DPM at [facility] Left: [facility] MED [id number] / / 3.5mm X 14mm Locking Screw Implanted:Qty: 2 on 05/24/2015 by Shante Rayo DPM at [facility] Explanted:Qty: 2 on 09/14/2016 by Shante Rayo DPM at [facility] Left: Foot [employer] MED [id number] / / Plate Explanted:Qty: 2 on 05/16/2017 by Shante Rayo DPM at [facility] Left: [facility] Screws Explanted:Qty: 7 on 05/16/2017 by Shante Rayo DPM at [facility] Left: [facility] Insurance Advance Directives For more information, please contact: [phone] * Full Code (Latest Code Status on File) Date Activated Date Inactivated Comments 05/24/2015 3:31 PM 05/25/2015 12:37 PM Care Teams Hospital Aide Relationship Specialty Start Date End Date Tiffanie Guerrero MD [address] [place] [address] PCP - General 12/15/12
--- OUTSIDE RECORDS SUMMARY | 2025-03-18 10:48 | XMS_ITS | Encounter Summary ---
Author Organization [facility] Address [address] [place] [address] Care Team Providers Care Cpo Name Role Phone Sammy Apple Oswald DO Unavailable [phone] Catalina Watson MD Unavailable [phone] Santino Aviles MD Primary Care Provider [phone] Source Comments In the event this information is protected by the Federal Confidentiality of Alcohol and Drug AbusePatient Records regulations: The Federal rules restrict any use of the information to criminally investigate or prosecute any alcohol or drug abuse patient.[facility] Encounter Details Date Type Department Care Team (Latest Contact Info) Description 03/12/2025 Travel Social History Tobacco Use Types Packs/Day Years [...] is lower risk 5 03/13/2025 Data from: https://www.[facility].e du/. Last address used for calculation [address] 03/13/2025 Comments No [...] Description 03/22/2025 9:00 AM EDT Results Only [facility] [address] [place] [address] [place] [address] labs 02/14/2026 9:00 AM EDT Office Visit Rheumatology [address] [facility] [place] [address] Shanna Muller MD [address] [place] [address] RTC after DXA- 6-12 mo f/u documented as of this encounter Visit Diagnoses Not on filedocumented in this encounter Care Teams Cpo Relationship Specialty Start Date End Date Santino Aviles MD [address] [place] [address] PCP - General Family Medicine 06/15/24 Sammy Apple DO [address] [place] [address] Orthopedics 10/02/23 Catalina Watson MD [address] [facility] [address] [place] [address] Referring Dermatology 05/14/24 documented as of this encounter
--- OUTSIDE RECORDS SUMMARY | 2025-03-18 10:49 | XMS_ITS | Encounter Summary ---
Author Organization [facility] Address [facility] [place] [address] Care Team Providers Care Tiler Name Role Phone Sammy Apple DO Unavailable [phone] Marisela Falk APRN.[facility] Primary Care Provider Catalina Watson MD Unavailable [phone] Santino Aviles MD Primary Care Provider [phone] Source Comments In the event this information is protected by the Federal Confidentiality of Alcohol and Drug AbusePatient Records regulations: The Federal rules restrict any use of the information to criminally investigate or prosecute any alcohol or drug abuse patient.[facility] Encounter Details Date Type Department Care Team (Late st Contact Info) Description 06/08/2024 Patient Msg Neurology [address] [place], [place] [id number] Provider, Ccf Requested EMG Apointment Social History Tobacco Use Types Packs/Day Years [...] is lower risk 5 10/01/2023 Data from: https://www.neighborhoodatlas.medicine.[facility] /. Last address used for calculation [address] 10/01/2023 Comments [...] Description 03/22/2025 9:00 AM EDT Results Only [facility] [address] [place] [address] [place] [address] labs 02/14/2026 9:00 AM EDT Office Visit Rheumatology [address] [facility] [place], [place] [address] Shanna Muller MD [address] [facility] [place] [address] RTC after DXA- 6-12 mo f/u documented as of this encounter Visit Diagnoses Not on filedocumented in this encounter Care Teams Tiler Relationship Specialty Start Date End Date Marisela Falk APRN.FACILITY ATTENDANT [address] [place] [address] PCP - General 12/23/23 06/14/24 Santino Aviles MD [address] [place] [address] PCP - General Family Medicine 06/15/24 Sammy Apple DO [address] [place] [address] Orthopedics 10/02/23 Catalina Watson MD [address] [address] Referring Dermatology 05/14/24 documented as of this encounter
--- OUTSIDE RECORDS SUMMARY | 2025-03-18 10:49 | XMS_ITS | Encounter Summary ---
Author Organization [facility] Address [address] [place] [address] Care Team Providers Care Administration Professional Name Role Phone Sammy Apple Oswald DO Unavailable [phone] Catalina Watson MD Unavailable [phone] Snatino Aviles MD Primary Care Provider [phone] Source Comments In the event this information is protected by the Federal Confidentiality of Alcohol and Drug AbusePatient Records regulations: The Federal rules restrict any use of the information to criminally investigate or prosecute any alcohol or drug abuse patient.[facility] Encounter Details Date Type Department Care Team (Late st Contact Info) Description 06/18/2024 Get Medical Advice Orthopaedics [address] [place] [address] John Bonds MD [address] [place] [address] Declined test and revision Social History Tobacco Use Types Packs/Day Years [...] risk 5 10/01/2023 Data from: https://www.neighborhoodatlas.medicine.[facility] /. Last address used for calculation [address] 10/01/2023 Comments No Sex [...] Description 03/22/2025 9:00 AM EDT Results Only [facility] [address] [place] [address] [place] [address] labs 02/14/2026 9:00 AM EDT Office Visit Rheumatology [address] [facility] [place] [address] Shanna Muller MD [address] [facility] [address] [facility] [place] [address] RTC after DXA- 6-12 mo f/u documented as of this encounter Visit Diagnoses Not on filedocumented in this encounter Care Teams Administration Professional Relationship Specialty Start Date End Date Santino Aviles MD [address] [place] [address] PCP - General Family Medicine 06/15/24 Sammy Apple DO [address] [place] [address] Orthopedics 10/02/23 Catalina Watson MD [address] [facility] [address] [place] [address] Referring Dermatology 05/14/24 documented as of this encounter
--- OUTSIDE RECORDS SUMMARY | 2025-03-18 10:49 | XMS_ITS | Encounter Summary ---
Author Organization [facility] Address [facility] [place] [address] Care Team Providers Care Log Sawyer Name Role Phone Sammy Apple Oswald DO Unavailable [phone] Catalina Watson MD Unavailable [phone] Santino Aviles MD Primary Care Provider [phone] Source Comments In the event this information is protected by the Federal Confidentiality of Alcohol and Drug AbusePatient Records regulations: The Federal rules restrict any use of the information to criminally investigate or prosecute any alcohol or drug abuse patient.[facility] Encounter Details Date Type Department Care Team (Late st Contact Info) Description 06/18/2024 Patient Msg Neurology [address] [id number] Provider, [facility]cf EMG Order Social History Tobacco Use Types Packs/Day Years [...] is lower risk 5 10/01/2023 Data from: https://www.neighborhoodatlas.[facility] /. Last address used for calculation [address] 10/01/2023 Comments No Sex and [...] Description 03/22/2025 9:00 AM EDT Results Only [facility] [address] [place] [address] [place] [address] labs 02/14/2026 9:00 AM EDT Office Visit Rheumatology [address] [facility] [address] Shanna Muller MD [address] [place], [place] [phone] RTC after DXA- 6-12 mo f/u documented as of this encounter Visit Diagnoses Not on filedocumented in this encounter Care Teams Log Sawyer Relationship Specialty Start Date End Date Santino Aviles MD [address] [place] [address] PCP - General Family Medicine 06/15/24 Sammy Apple DO [address] [place] [address] Orthopedics 10/02/23 Catalina Watson MD [address] [facility] [address] [place] [address] Referring Dermatology 05/14/24 documented as of this encounter
--- OUTSIDE RECORDS SUMMARY | 2025-03-18 10:50 | XMS_ITS | Encounter Summary ---
Author Organization [facility] Address [address] [place] [address] Care Team Providers Care Card Room Manager Name Role Phone Sammy Apple DO Unavailable [phone] Catalina Watson MD Unavailable [phone] Santino Aviles MD Primary Care Provider [phone] Source Comments In the event this information is protected by the Federal Confidentiality of Alcohol and Drug AbusePatient Records regulations: The Federal rules restrict any use of the information to criminally investigate or prosecute any alcohol or drug abuse patient.[facility] Reason for Visit * Reason Comments Medication Problem Encounter Details Date Type Department Care Team (Late st Contact Info) Description 12/18/2024 Telephone Endocrinology [address] [place] [address] Shanna Muller MD [address] [place], [place] [id number] Medication Problem Social History Tobacco Use Types Packs/Day Years [...] is lower risk 5 10/01/2023 Data from: https://www.neighborhoodatlas.medicine.[facility] /. Last address used for calculation [address] 10/01/2023 Comments No [...] encounter Miscellaneous Notes * Telephone Encounter - Yolette Layne LPN - 12/22/2024 11:12 AM EDT Rosita menezes approval of Rinvoq. Approved 12/21/24-12/21/2025. * Telephone Encounter - Yolette Layne LPN - 12/21/2024 12:39 PM EDT Chart notes faxed with confirmation. * Telephone Encounter - Yolette Layne LPN - 12/21/2024 11:52 AM EDT Spoke with Delma at [facility]. Clinical needed for request. Fax #: [phone]. PA # as reference on cover sheet. * Telephone Encounter - Mayra Anderson - 12/18/2024 4:52 PM EDT [facility] is calling regarding the PA for Rinvoq. The PA # [id number] created 12/16/24 is waiting for review. Their PA department is waiting for you to call them at [phone]. Patient has been identified by name and birthdate. Duration of symptoms: N/A Was an appointment scheduled: No Closing statement: Results or non-symptom based questions: Thank you for calling [facility], your call will be returned within the next business day. Mayra Davidson documented in this encounter Plan of Treatment Upcoming Encounters Date Type Department Care Team (Late st Contact Info) Description 03/22/2025 9:00 AM EDT Results Only [facility] [address] [place] [address] [place] [address] labs 02/14/2026 9:00 AM EDT Office Visit Rheumatology [address] [facility] [place] [id number] Shanna Muller MD [address] [address] RTC after DXA- 6-12 mo f/u documented as of this encounter Visit Diagnoses Not on filedocumented in this encounter Care Teams Card Room Manager Relationship Specialty Start Date End Date Santino Aviles MD [address] [place] [address] PCP - General Family Medicine 06/15/24 Sammy Apple DO [address] [place] [address] Orthopedics 10/02/23 Catalina Watson MD [address] [address] Referring Dermatology 05/14/24 documented as of this encounter
--- OUTSIDE RECORDS SUMMARY | 2025-03-18 10:50 | XMS_ITS | Encounter Summary ---
Author Organization [facility] Address [address] [place] [address] Care Team Providers Care Coal Passer Name Role Phone Sammy Apple Oswald DO Unavailable [phone] Catalina Watson MD Unavailable [phone] Santino Aviles MD Primary Care Provider [phone] Source Comments In the event this information is protected by the Federal Confidentiality of Alcohol and Drug AbusePatient Records regulations: The Federal rules restrict any use of the information to criminally investigate or prosecute any alcohol or drug abuse patient.[facility] Encounter Details Date Type Department Care Team (Late st Contact Info) Description 08/05/2024 Patient Msg Pediatrics [place] [address] [place], [place] [phone] Provider, Ccf Unable to reach you Social History Tobacco Use Types Packs/Day Years [...] is lower risk 5 10/01/2023 Data from: https://www.neighborhoodatlas.[facility] /. Last address used for calculation [id number] 10/01/2023 Comments No Sex [...] Description 03/22/2025 9:00 AM EDT Results Only [facility] [address] [place] [address] [place] [address] labs 02/14/2026 9:00 AM EDT Office Visit Rheumatology [address] [place] [address] Shanna Muller MD [address] [place], [place] [phone] RTC after DXA- 6-12 mo f/u documented as of this encounter Visit Diagnoses Not on filedocumented in this encounter Care Teams Coal Passer Relationship Specialty Start Date End Date Santino Aviles MD [address] [place] [address] PCP - General Family Medicine 06/15/24 Sammy Apple DO [address] [place] [address] Orthopedics 10/02/23 Catalina Watson MD [address] [facility] [address] [place] [address] Referring Dermatology 05/14/24 documented as of this encounter
--- OUTSIDE RECORDS SUMMARY | 2025-03-18 10:50 | XMS_ITS | Encounter Summary ---
Author Organization [facility] Address [facility] [place] [address] Care Team Providers Care Nurse'S Aides Teacher Name Role Phone Sammy Apple Oswald DO Unavailable [phone] Catalina Watson MD Unavailable [phone] Santino Aviles MD Primary Care Provider [phone] Source Comments In the event this information is protected by the Federal Confidentiality of Alcohol and Drug AbusePatient Records regulations: The Federal rules restrict any use of the information to criminally investigate or prosecute any alcohol or drug abuse patient.[facility] Encounter Details Date Type Department Care Team (Late st Contact Info) Description 07/03/2024 Patient Msg Neurology [address] [phone] Provider, [facility]cf EMG Order Social History Tobacco [...] is lower risk 5 10/01/2023 Data from: https://www.neighborhoodatlas.[facility] /. Last address used for calculation [address] 10/01/2023 [...] Description 03/22/2025 9:00 AM EDT Results Only [facility] [address] [place] [address] [place] [address] labs 02/14/2026 9:00 AM EDT Office Visit Rheumatology [address] [facility] [place] [address] Shanna Muller MD [address] [place], [place] [phone] RTC after DXA- 6-12 mo f/u documented as of this encounter Visit Diagnoses Not on filedocumented in this encounter Care Teams Nurse'S Aides Teacher Relationship Specialty Start Date End Date Santino Aviles MD [address] [place] [address] PCP - General Family Medicine 06/15/24 Sammy Apple DO [address] [place] [address] Orthopedics 10/02/23 Catalina Watson MD [address] [facility] [address] [place] [address] Referring Dermatology 05/14/24 documented as of this encounter
--- OUTSIDE RECORDS SUMMARY | 2025-03-18 10:50 | XMS_ITS | Encounter Summary ---
Author Organization [facility] Address [address] [place] [address] Care Team Providers Care Waste Minimization Technician Name Role Phone Sammy Apple DO Unavailable [phone] Marisela Falk APRN.[facility] Primary Care Provider Catalina Watson MD Unavailable [phone] Santino Aviles MD Primary Care Provider [phone] Source Comments In the event this information is protected by the Federal Confidentiality of Alcohol and Drug AbusePatient Records regulations: The Federal rules restrict any use of the information to criminally investigate or prosecute any alcohol or drug abuse patient.[facility] Encounter Details Date Type Department Care Team (Late st Contact Info) Description 04/10/2024 Patient Msg Rheumatology [address] [place] [address] Shanna Muller MD [address] [place] [address] Appointment Request Social History Tobacco Use Types [...] is lower risk 5 10/01/2023 Data from: https://www.neighborhoodatlas.medicine.[facility] /. Last address used for calculation [address] 10/01/2023 Comments No Sex and [...] Entry Date Author No 01/27/2014 9:53 AM Sera Payton MA documented in this encounter Plan of Treatment Upcoming Encounters Date Type Department Care Team (Late st Contact Info) Description 03/22/2025 9:00 AM EDT Results Only [facility] [address] [place] [address] labs 02/14/2026 9:00 AM EDT Office Visit Rheumatology [address] [facility] [place] [address] Shanna Muller MD [address] [facility] [place] [address] RTC after DXA- 6-12 mo f/u documented as of this encounter Visit Diagnoses Not on filedocumented in this encounter Care Teams Waste Minimization Technician Relationship Specialty Start Date End Date Marisela Falk, MODELING AND SIMULATION ANALYST.INCUBATOR MACHINE OPERATOR [address] [place] [address] PCP - General 12/23/23 06/14/24 Santino Aviles MD [address] [place] [address] PCP - General Family Medicine 06/15/24 Sammy Apple DO [address] [place] [address] Orthopedics 10/02/23 Catalina Watson MD [address] [address] Referring Dermatology 05/14/24 documented as of this encounter
--- OUTSIDE RECORDS SUMMARY | 2025-03-18 10:50 | XMS_ITS | Encounter Summary ---
Author Organization [facility] Address [address] [place] [address] Care Team Providers Care Home Health Care Physician Name Role Phone Sammy Apple DO Unavailable [phone] Catalina Watson MD Unavailable [phone] Santino Aviles MD Primary Care Provider [phone] Source Comments In the event this information is protected by the Federal Confidentiality of Alcohol and Drug AbusePatient Records regulations: The Federal rules restrict any use of the information to criminally investigate or prosecute any alcohol or drug abuse patient.[facility] Reason for Visit * Reason Comments Refill Request Encounter Details Date Type Department Care Team (Late st Contact Info) Description 09/21/2024 Refill Rheumatology [address] [place], [place] [phone] Shanna Muller MD [address] [place], [place] [phone] Refill Request Social History Tobacco Use Types [...] risk 5 10/01/2023 Data from: https://www.neighborhoodatlas.medicine.[facility] /. Last address used for calculation [address] 10/01/2023 Comments No Sex [...] encounter Miscellaneous Notes * Telephone Encounter - Corine Whiting - 09/24/2024 11:04 AM EDT 1st attempt, left voicemail for patient to call and schedule labs 2nd attempt, mychart sent * Telephone Encounter - Shanna Muller MD - 09/23/2024 10:47 PM EDT Please call and schedule nonfasting labs this month. Temporary medication refilled Thank you. Patient's request for medication is as follows: Requested Prescriptions Pending Prescriptions Disp Refills ??? upadacitinib ER (RINVOQ) 15 mg tablet [Pharmacy Med Name: RINVOQ ER 15MG] 30 tablet 1 Sig: TAKE 1 TABLET BY MOUTH 1 TIME A DAY. Prescription(s) as above. Please process accordingly. Shanna Muller MD * Telephone Encounter - Monika Zavala MA - 09/22/2024 8:10 AM EDT Images from the original note were not included. Patient phones requesting refills as follows: Requested Prescriptions Pending Prescriptions Disp Refills upadacitinib ER (RINVOQ) 15 mg tablet [Pharmacy Med Name: RINVOQ ER 15MG] 30 tablet 5 Sig: TAKE 1 TABLET BY MOUTH 1 TIME A DAY. Please review and advise. Monika Zavala MA Most recent Rheumatology visit: 10/01/2023 (with Shanna Muller) Last Bone Density on file: None on file Rheumatology Care Team: None on file Recent Office Visits - This Specialty 10/01/2023 Rheumatoid arthritis of multiple sites without rheumatoid factor (HCC) Rheumatology Shanna Muller MD 05/07/2022 Rheumatoid arthritis of multiple sites without rheumatoid factor (HCC) Rheumatology Shanna Muller MD 10/10/2005 IMMUNOLOGICAL FIND OTHR OR UNSPEC Rheumatology Laura Harper Upcoming Rheumatology Appointments - Next 365 Days Visit Type Date Time Department [facility] 02/15/2025 7:40 AM [facility] CBC: Latest Ref Rng & Units 06/08/2024 06/15/2024 CBC WBC 4.0 - 11.0 K/uL 10.1 9.8 Hemoglobin 12.0 - 16.0 g/dL 10.3 10.1 Hematocrit 36.0 - 48.0 % 33.8 32.2 Platelet Count 150 - 450 K/uL 321 268 Abs Neut (ANC) 1.4 - 6.5 K/uL 7.5 7.7 This result is from an external source. Vitamin D: None on file in the last 6 months LFT: Latest Ref Rng & Units 06/08/2024 06/15/2024 CMP Creatinine 0.55 - 1.02 MG/DL 1.15 0.92 This result is from an external source. Hepatic Function: Creatinine: Latest Ref Rng & Units 06/08/2024 06/15/2024 Creatinine Creatinine 0.55 - 1.02 MG/DL 1.15 0.92 This result is from an external source. ESR/CRP: Latest Ref Rng & Units 10/14/2023 05/20/2024 ESR, WSR WSR 0 - 30 45 81 This result is from an external source. Latest Ref Rng & Units 06/08/2024 06/15/2024 CRP CRP <=0.50 mg/dL 0.50 0.97 This result is from an external source. Uric Acid: None on file in the last 6 months Open Standing (Multiple Instance) Lab Orders None Open Future (Single Instance) Lab Orders Expected Expires Ordered COMPREHENSIVE METABOLIC PANEL [SQCMP] 08/04/24 08/04/25 08/04/24 Auth. provider: Shanna Muller MD Assoc. diagnoses: Elevated LFTs COMPLETE BLOOD COUNT [SQCBC] 08/04/24 08/04/25 08/04/24 Auth. provider: Shanna Muller MD Assoc. diagnoses: Anemia of chronic disease SEDIMENTATION RATE, WESTERGREN [SQWSR] 08/04/24 08/04/25 08/04/24 Auth. provider: Shanna Muller MD Assoc. diagnoses: Elevated sed rate, Elevated C-reactive protein (CRP) C-REACTIVE PROTEIN [SQCRP] 08/04/24 08/04/25 08/04/24 Auth. provider: Shanna Muller MD Assoc. diagnoses: Elevated sed rate, Elevated C-reactive protein (CRP) VITAMIN D 25 HYDROXY [SQVITD] 08/04/24 08/04/25 08/04/24 Auth. provider: Shanna Muller MD Assoc. diagnoses: Vitamin D deficiency HEP REMOTE PANEL BL [SQHREMOP] 08/04/24 08/04/25 08/04/24 Auth. provider: Shanna Muller MD Assoc. diagnoses: Elevated LFTs BLOOD TB SCREEN [SQINFTBP] 08/04/24 08/04/25 08/04/24 Auth. provider: Shanna Muller MD Assoc. diagnoses: Screening-pulmonary TB documented in this encounter Plan of Treatment Upcoming Encounters Date Type Department Care Team (Late st Contact Info) Description 03/22/2025 9:00 AM EDT Results Only [facility] [address] [place] [address] [place] [address] labs 02/14/2026 9:00 AM EDT Office Visit Rheumatology [address] [place] [address] Shanna Muller MD [address] [place] [address] RTC after DXA- 6-12 mo f/u documented as of this encounter Visit Diagnoses Diagnosis Rheumatoid arthritis of multiple sites without rheumatoid factor (HCC) Rheumatoid arthritis documented in this encounter Care Teams Home Health Care Physician Relationship Specialty Start Date End Date Santino Aviles MD [address] [place] [address] PCP - General Family Medicine 06/15/24 Sammy Apple DO [address] [place] [address] Orthopedics 10/02/23 Catalina Watson MD [address] [facility] [address] [place] [address] Referring Dermatology 05/14/24 documented as of this encounter
--- OUTSIDE RECORDS SUMMARY | 2025-03-18 10:50 | XMS_ITS | Clinical Summary ---
Author Organization [facility] Address [address] [place] [address] Care Team Providers Care Battery Plate Remover Name Role Phone Tiffanie Guerrero MD Primary Care Provider Allergies Active Allergy Reactions Criticality Noted Date Comments Apixaban Itching 01/23/2022 Cephalexin Hives 01/11/2022 Penicillins Hives 01/11/2022 Medications albuterol 108 (90 Base) MCG/ACT Aero Soln inhaler INHALE 2 PUFFS BY MOUTH EVERY 4 HOURS NEEDED 12/31/19 22 Active Azelastine HCl 137 MCG/SPRAY Solution nasal spray USE 2 SPRAYS IN EACH NOSTRIL TWICE DAILY, NEED TO USE REGULARLY FOR BENEFIT 12/29/19 22 Active benzonatate 200 MG capsule TAKE 1 CAPSULE BY MOUTH EVERY 8 HOURS NEEDED FOR COUGH 12/21/19 22 Active Denosumab (PROLIA SC) every 6 months. 09/15/19 22 Active doxycycline monohydrate 100 MG tablet Take 1 tablet by mouth 2 times daily. 01/04/20 22 Active Wixela Inhub 250-50 MCG/ACT Aerosol Powder, breath activated inhaler INHALE 1 PUFF INTO LUNGS TWICE DAILY. USE REGULARLY FOR BENEFIT. RINSE MOUTH AFTER USE 12/22/19 22 Active levothyroxine 137 MCG tablet Take 137 mcg by mouth daily. 11/11/19 22 Active omeprazole [address] capsule TAKE 1 CAPSULE BY MOUTH EVERY MORNING *CALL OFFICE TO SCHEDULE FOLLOW UP* 12/08/19 22 Active Probiotic Product (Align) capsule TAKE 1 CAPSULE DAILY AFTER COMPLETING ANTIBIOTICS COURSE 10/10/19 22 Active Ozempic, 1 MG/DOSE, 4 MG/3ML Solution Pen-injector INJECT 1MG SUBCUTANEOUSLY ONCE WEEKLY 12/26/19 22 Active triamcinolone 0.1 % Ointment ointment APPLY TO AFFECTED AREAS OF RASH TWICE DAILY NEEDED FOR 30 DAYS 12/12/19 Active zafirlukast 20 MG tablet Take 1 tablet by mouth 2 times daily. 12/04/19 Active Upadacitinib (RINVOQ PO) Take 15 mg by mouth daily. 04/24/20 Active cetirizine 10 MG tablet 2 times daily. 12/16/19 Active cholestyramine 4 g Pack Take 4 g by mouth daily every morning. Active fluticasone 50 MCG/ACT Suspension nasal spray 2 sprays by Nasal route daily. Active Multiple Vitamin (Multi-Vitamin) tablet Take 1 tablet by mouth daily every morning. Active ondansetron 4 MG tablet TAKE 1 TABLET BY MOUTH EVERY 12 HOURS NEEDED FOR NAUSEA FOR 5 DAYS 10/06/19 Active HERBAL PRODUCT daily. Nerve 911 Active docusate 100 MG capsule Take 1 capsule by mouth 2 times daily. 60 capsule 01/24/20 Active celecoxib 200 MG capsule Take 1 capsule by mouth 2 times daily. 84 capsule 01/24/20 Active acetaminophen 325 MG tablet Take 2 tablets by mouth every 4 hours as needed for Mild Pain. 50 tablet 1 01/24/20 Active Enoxaparin Sodium 40 MG/0.4ML injection Inject 0.4 mL under the skin daily. 12 mL 01/24/20 Active DISABILITY PLACARD Disability placard end date 05/01/2022. Dx 719.7 1 Each 02/16/20 Active oxyCODONE 5 MG tabletIndications :Acute postoperative pain of right knee Take 1 tablet by mouth every 12 hours as needed for Severe Pain for up to 7 days. Wean as tolerated. 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, initial encounter 01/24/2022 Social History Tobacco Use Types Packs/Day Years Used Date Smoking Tobacco: Never Smokeless Tobacco: Never Tobacco Cessation:Counseling Given: Not Answered Alcohol Use Standard Drinks/Week Comments Yes 0 (1 standard drink = 0.6 oz pur e alcohol) ocassional Comments Unknown Sex and Gender Information Value Date Recorded Sex Assigned at Not on file Legal Sex Female 8:28 AM EDT Gender Identity Not on file Sexual Orientation Not on file Last Filed Vital Signs Vital Sign Reading Time Taken Comments Blood Pressure 162/84 01/24/2022 12:38 PM EDT Pulse 96 01/24/2022 12:38 PM EDT Temperature 37 C (98.6 F) 02/20/2023 2:49 PM EDT Respiratory Rate 18 01/24/2022 12:38 PM EDT Oxygen Saturation 96% 01/24/2022 12:38 PM EDT Inhaled Oxygen Concentration - - Weight 78.5 kg (173 lb 1 oz) 02/20/2023 2:49 PM EDT Height 149.9 cm (4' 11 ) 02/20/2023 2:49 PM EDT Body Mass Index 34.95 02/20/2023 2:49 PM EDT Plan of Treatment Health Maintenance Due Date Last Done Comments DEXA SCAN DISCUSSION 1959 HEPATITIS C VIRUS SCREENING 1959 TETANUS 1959 TSH 1959 TDAP (ADULT) 11/04/1978 CERVICAL CANCER SCREENING DISCUSSION 11/04/1980 LIPID SCREENING 1999 COLORECTAL CANCER SCREENING DISCUSSION 11/04/2004 ZOSTER (SHINGLES) VACCINE (1 of 2) 11/04/2009 PNEUMOCOCCAL VACCINE SERIES (2 of 2 - PCV) 05/26/2019 05/26/2018, 03/13/2018 MAMMOGRAM SCREENING DISCUSSION 06/01/2021 06/01/2020 COVID-19 VACCINE ( season) 2025 07/24/2022, 07/24/2022, 11/17/2021, Additional history exists INFLUENZA VACCINE (#1) 2025 , 05/10/2021, 04/27/2021, Additional history exists RSV VACCINE (1 - 1-dose 75+ series) 11/04/2034 PNEUMOCOCCAL VACCINE SERIES Discontinued 05/26/2018, 03/13/2018 HEP B VACCINE Aged Out No longer elig ible based on patient's age to complete this topic Medical Devices Implanted Type Area Sound Recording Technician Device Identifier Shelf Expiration Date Model / Serial / Lot Palacos R+G 1x40 Single With Gentamicin - [id number] Implanted:Qty: 3 on 01/23/2022 by González Pendleton MD at [facility] Other Right: Knee 04/30/2025 / / [id number] Revision Crs Femoral Size 5 Right Implanted:Qty: 1 on 01/23/2022 by González Pendleton MD at [facility] Right: Knee DEPUY 09/28/2030 1504-40-205 / / [id number] Revision Crs Rotating Platform Insert Size 5 10mm Aox Implanted:Qty: 1 on 01/23/2022 by González Pendleton MD at [facility] Right: Knee DEPUY 04/30/2026 1517-10-510 / / [id number] Patella - Knee - [id number] Implanted:Qty: 1 on 01/23/2022 by González Pendleton MD at [facility] Right: Knee DEPUY 08/28/2026 1518-20-035 / / [id number] Pressfit Stem - Knee - [id number] Implanted:Qty: 1 on 01/23/2022 by González Pendleton MD at [facility] Right: Knee DEPUY 11/28/2030 1513-10-060 / / [id number] Revision Tibial Sleeve Porocoat Partially Coated 29mm Implanted:Qty: 1 on 01/23/2022 by González Pendleton MD at [facility] Right: Knee DEPUY 10/28/2028 1511-11-101 / / [id number] Revision Tibial Base Rotating Platform Size 3 Implanted:Qty: 1 on 01/23/2022 by González Pendleton MD at [facility] Right: Knee DEPUY 09/29/2031 1506-60-003 / / [id number] Pressfit Stem - Knee - [id number] Implanted:Qty: 1 on 01/23/2022 by González Pendleton MD at [facility] Right: Knee DEPUY 09/28/2030 1513-14-060 / / [id number] Revision Distal Femoral Augment Size 5 12mm Implanted:Qty: 1 on 01/23/2022 by González Pendleton MD at [facility] Right: Knee DEPUY 03/30/2028 1547-05-003 / / [id number] Revision Posterior Femoral Augment Size 5 4mm Implanted:Qty: 1 on 01/23/2022 by González Pendleton MD at [facility] Right: Knee DEPUY 08/28/2030 1549-05-001 / / [id number] Revision Offset Stem Adaptor 4mm Implanted:Qty: 1 on 01/23/2022 by González Pendleton MD at [facility] Right: Knee DEPUY 11/29/2027 1513-04-000 / / [id number] Insurance [address] [place], [place] [address]O PPO POS Advance Directives For more information, please contact: [phone] (7:30 AM - 6PM [facility], Saturday-Saturday) * Full Code (Latest Code Status on File) Date Activated Date Inactivated Comments 01/23/2022 2:13 PM Care Teams Battery Plate Remover Relationship Specialty Start Date End Date Tiffanie Guerrero MD PCP - General Family Medicine 01/11/22
--- OUTSIDE RECORDS SUMMARY | 2025-03-18 10:50 | XMS_ITS | Encounter Summary ---
Author Organization [facility] Address [address] [place] [address] Care Team Providers Care Systems Tester Name Role Phone Sammy Apple Oswald DO Unavailable [phone] Catalina Watson MD Unavailable [phone] Santino Aviles MD Primary Care Provider [phone] Source Comments In the event this information is protected by the Federal Confidentiality of Alcohol and Drug AbusePatient Records regulations: The Federal rules restrict any use of the information to criminally investigate or prosecute any alcohol or drug abuse patient.[facility] Encounter Details Date Type Department Care Team (Late st Contact Info) Description 11/04/2024 [place] [address] Provider, f Medicare Coverage of Physical Exams Social History Tobacco Use Types Packs/Day Years [...] is lower risk 5 10/01/2023 Data from: [email or web address]. Last address used for calculation [address] 10/01/2023 Comments No [...] Description 03/22/2025 9:00 AM EDT Results Only [facility] [address] [place] [address] [place] [address] labs 02/14/2026 9:00 AM EDT Office Visit Rheumatology [address] [facility] [place] [address] Shanna Muller MD [address] [address] RTC after DXA- 6-12 mo f/u documented as of this encounter Visit Diagnoses Not on filedocumented in this encounter Care Teams Systems Tester Relationship Specialty Start Date End Date Santino Aviles MD [address] [facility] [place] [place] [address] PCP - General Family Medicine 06/15/24 Sammy Apple DO [address] [place] [address] Orthopedics 10/02/23 Catalina Watson MD [address] [facility] [address] [place] [address] Referring Dermatology 05/14/24 documented as of this encounter
--- OUTSIDE RECORDS SUMMARY | 2025-03-18 10:50 | XMS_ITS | Encounter Summary ---
Author Organization [facility] Address [address] [place] [address] Care Team Providers Care Log Chain Feeder Name Role Phone Silvestre Tamayo MD Primary Care Provider [phone] Marisela Falk NP Unavailable Encounter Details Date Type Department Care Team (Late st Contact Info) Description 11/18/2023 Orders Only [facility] [address] [place] [id number] Jaylin Prieto NP Osteoporosis, unspecified osteoporosis type, unspecified pathological fracture presence Social History Tobacco Use Types Packs/Day Years [...] Description 01/31/2026 11:40 AM EDT Office Visit [facility] [address] [facility] [address] [place] [id number] Theodore Arias MD [address] [facility] [address] [place] [address] documented as of this encounter Procedures Procedure Name Priority Date/Time Associated Diagnosis Comments DEXA BONE DENSITY Routine 11/18/2023 1:15 PM EDT Osteoporosis, unspecified osteoporosis type, unspecified pathological fracture presence documented in this encounter Results * DEXA bone density (11/18/2023 1:15 PM EDT) Jaylin Prieto NP IMG DXA PROCEDURES Final Resul t documented in this encounter Visit Diagnoses Diagnosis Osteoporosis, unspecified osteoporosis type, unspecified pathological fracture presence documented in this encounter Care Teams Log Chain Feeder Relationship Specialty Start Date End Date Silvestre Tamayo MD PCP - General Family Medicine 03/05/23 03/12/24 Marisela Falk NP [address] [place] [address] Referring Physician Family Medicine 03/13/24 documented as of this encounter
--- OUTSIDE RECORDS SUMMARY | 2025-03-18 10:50 | XMS_ITS | Encounter Summary ---
Author Organization [facility] Address [address] [place] [address] Care Team Providers Care Mortgage Field Inspector Name Role Phone Silvestre Tamayo MD Primary Care Provider [phone] Marisela Falk NP Unavailable Encounter Details Date Type Department Care Team (Late Contact Info) Description 05/23/2023 Abstract [facility] [address] [facility] [address] [place] [address] Jaylin Prieto NP Social History Tobacco Use Types Packs/Day Years Used Date Smoking Tobacco: Never Smokeless Tobacco: Never Tobacco Cessation:Counseling Given: Not Answered Alcohol Use Standard Drinks/Week Comments Yes 2 [...] [facility] [address] [facility] [address] [place] [phone] Theodore Arias MD [address] [facility] [address] [place] [address] documented as of this encounter Visit Diagnoses Not on filedocumented in this encounter Care Teams Mortgage Field Inspector Relationship Specialty Start Date End Date Silvestre Tamayo MD PCP - General Family Medicine 03/05/23 03/12/24 Marisela Falk NP [address] [place] [address] Referring Physician Family Medicine 03/13/24 documented as of this encounter
--- OUTSIDE RECORDS SUMMARY | 2025-03-18 10:50 | XMS_ITS | Clinical Summary ---
Author Organization [facility] Address [address] [place] [address] Care Team Providers Care Project Program Manager Name Role Phone Marisela Falk CIGAR HEAD PUNCHER Unavailable Allergies Active Allergy Reactions Criticality Noted Date Comments Apixaban Itching,Unknown 01/23/2022 Cefprozil Unknown 05/06/2023 Cephalexin Hives,Other 10/18/2004 Other Reaction(s): Hives Dabigatran Unknown 11/11/2023 Dabigatran Etexilate Mesylate Unknown 05/06/2023 Penicillin G Benzathine 03/01/2023 Other Reaction(s): Hives Penicillins Hives 01/05/2004 Medications upadacitinib ER (Rinvoq) 15 MG tablet sustained-release 24 hour Refills(s) 0 12/06/19 23 Active pantoprazole (ProtoNix) 40 MG EC tablet Take 40 mg by mouth. 12/06/19 23 Active Multiple Vitamin (Multi-Vitamin) tablet Take 1 tablet by mouth in the morning. Active montelukast (Singulair) 10 MG tablet Take 10 mg by mouth in the morning and 10 mg before bedtime. Active levothyroxine (Synthroid, Levoxyl) 137 MCG tablet Take 137 mcg by mouth in the morning. Active famotidine (Pepcid) 20 MG tablet Take 20 mg by mouth in the morning and 20 mg in the evening. 05/11/20 22 Active cyclobenzaprine (Flexeril) 10 MG tablet TAKE 1 TABLET BY MOUTH THREE TIMES A DAY NEEDED FOR BACK PAIN Active celecoxib (CeleBREX) 200 MG capsule Take 200 mg by mouth in the morning and 200 mg before bedtime. Active calcium carbonate 1500 (600 Ca) MG tablet Take 600 mg by mouth in the morning and 600 mg in the evening. Take with meals. Active Ozempic, 2 MG/DOSE, 8 MG/3ML solution pen-injector INJECT 2MG SUBCUTANEOUSLY ONCE A WEEK 10/15/19 24 Active albuterol HFA 90 mcg/act inhaler INHALE 2 PUFFS BY MOUTH EVERY 4 HOURS NEEDED FOR SHORTNESS OF BREATH 08/05/19 24 Active fexofenadine (Malia) 60 MG tablet every 12 (twelve) hours Active ipratropium-albute rol (Duo-Neb) 0.5-2.5 mg/3 mL nebulizer solution 11/05/19 24 Active lansoprazole (Prevacid) [address] capsule Daily 11/07/19 24 Active ondansetron ODT (Zofran-ODT) 4 MG disintegrating tablet Take 4 mg by mouth every 8 (eight) hours if needed 11/01/19 24 Active pneumococcal conjugate 20-valent (Prevnar 20) 0.5 ML vaccine as directed Intramuscular once for 1 06/04/20 23 Active RSVPreF3 Vac Recomb Adjuvanted (Arexvy) 120 MCG/0.5ML reconstituted suspension as directed Intramuscular once for 1 06/04/20 23 Active doxycycline (Vibramycin) 100 MG capsule TAKE 1 CAPSULE (100 MG) BY MOUTH TWO TIMES A DAY FOR 28 DAYS. 04/26/20 24 Active aspirin 81 MG EC tablet Take 81 mg by mouth in the morning and 81 mg in the evening. 04/14/20 24 Active furosemide (Lasix) 20 MG tablet Take 20 mg by mouth in the morning. 01/13/20 24 Active Probiotic, Lactobacillus, capsule Take 1 capsule by mouth in the morning. Active ondansetron (Zofran) 4 MG tablet TAKE 1 TABLET BY MOUTH EVERY 8 HOURS NEEDED FOR NAUSEA AND VOMITING 04/14/20 24 Active potassium chloride CR (Klor-Con M20) 20 MEQ ER tablet Take 20 mEq by mouth in the morning and 20 mEq in the evening. 01/13/20 24 Active metoprolol succinate XL (Toprol-XL) 50 MG 24 hr tablet Take 50 mg by mouth Daily 03/23/20 24 Active fluconazole (Diflucan) 150 MG tabletIndications: Impetigo 1 p.o. every day x 3 days 3 tablet 05/11/20 24 Active fluorouracil (Efudex) 5 % creamIndications:A ctinic keratosis Apply to directed areas on the chest twice a day x 14 days. Dispense 30 day supply but only use for 14 days. 40 g 05/11/20 24 Active budesonide (Pulmicort) 0.5 MG/2ML nebulizer solutionIndication s:Mild intermittent asthma without complication (HCC) Take 2 mL (0.5 mg) by nebulization 4 (four) times a day as needed (please use in the nebulizer with albuterol up to 4 times per day as needed for asthma) Rinse mouth with water after use to reduce aftertaste and incidence of candidiasis. Do not swallow. 60 mL 09/01/19 25 026 Active tiotropium (Spiriva Respimat) 1.25 MCG/ACT inhalerIndications :Severe persistent asthma with (acute) exacerbation (HCC) Inhale 2 puffs 1 (one) time each day at the same time 1 each 09/01/19 25 Active Fluticasone-Salmet ale (Wixela Inhub) 250-50 MCG/ACT aerosol powderIndications: Severe persistent asthma with (acute) exacerbation (HCC) Inhale 1 puff in the morning and 1 puff before bedtime. 1 each 09/01/19 25 Active fluticasone (Flonase) 50 MCG/ACT nasal sprayIndications:S easonal allergic rhinitis due to pollen SPRAY 2 SPRAYS INTO EACH NOSTRIL IN THE MORNING 16 mL 11/25/19 25 Active dupilumab (Dupixent) 200 MG/1.14ML injection Inject under the skin Active Hospital, Clinic, or Other Facility Administered Medication Ordered Dose Route Frequency Start Date End Date Status denosumab (Prolia) injection 60 mgIndications:Osteoporosis, unspecified osteoporosis type, unspecified pathological fracture presence 60 mg SC Once 03/27/2023 Active Active Problems Problem Noted Date Diagnosed Date Bilateral posterior capsular opacification 08/06 Age-related osteoporosis wit hout current pathological fracture 03/01/2023 Arthritis of right knee 03/01/2023 Artificial knee joint present 03/01/2023 Arthritis of left glenohumeral joint 03/01/2023 Internal derangement of left shoulder 03/01/2023 Other specific arthropathies , not elsewhere classified, left shoulder 03/01/2023 Primary localized osteoarthrosis of shoulder reg ion 03/01/2023 S/P right unicompartmental knee replacement 07/2022 Tear of right rotator cuff 03/01/2023 Unspecified rotator cuff tea r or rupture of left shoulder, not specified as traumatic 03/01/2023 Asthma without status asthmaticus 07/01/2010 Encounters Date Type Department Care Team Description 02/01/2025 11:40 AM EDT Office Visit [facility] [address] [place] [phone] Theodore Arias MD Pneumonia of left lower lobe due to Streptococcus pneumoniae (Primary Dx); Moderate persistent asthma with acute exacerbation (HCC) 02/01/2025 Bamboo flowsheet [facility] [address] [place] [phone] Theodore Arias MD 02/01/2025 Travel from Last 3 Months Immunizations Immunization Administration Dates Next Due Influenza, High Dose Seasona l, Preservative Free 05/10/2021,04/04/2020 Influenza, injectable, MDCK, preservative free, quadrivalent 04/14/2020 Influenza, injectable, quadr ivalent, preservative free 07/24/2022,04/27/2021,03/18/2019,03/02,02/24/2019,03/26/2017,03/20/2016 Influenza, seasonal, injectable 05/07/2013 Influenza, seasonal, injecta ble, preservative free 04/27/2014 Moderna SARS-CoV-2 50mcg/0.5mL Booster 3 Pneumococcal Polysaccharide PPSV23 03/26/2024,,03/13/2018 Family History Medical History Relation Name Comments Aneurysm Father Clotting disorder Father Deep vein thrombosis Father Heart disease Father Stroke Father Cancer Mother Aneurysm Paternal Grandfather Clotting disorder Paternal Grandfather Relation Name Status Comments Father Mother Other denies family h istory of mm Paternal Grandfather Social History Tobacco Use Types Packs/Day Years [...] Sign Reading Time Taken Comments Blood Pressure 140/92 12/26/2023 4:15 PM EDT Pulse 123 12/26/2023 4:15 PM EDT Temperature 36.5 C (97.7 F) 12/26/2023 4:15 PM EDT Respiratory Rate - - Oxygen Saturation 98% 12/25/2023 4:19 PM EDT Inhaled Oxygen Concentration - - Weight 77.6 kg (171 lb) 02/01/2025 11:50 AM EDT Height 149.9 cm (4' 11 ) 03/13/2024 8:09 AM EDT Body Mass Index 34.54 03/13/2024 8:09 AM EDT Plan of Treatment Upcoming Encounters Date Type Department Care Team (Late st Contact Info) Description 01/31/2026 11:40 AM EDT Office Visit [facility] [place] [facility] [address] [phone] Theodore Arias MD [address] [address] Health Maintenance Due Date Last Done Comments CT Colonography 1959 FIT-DNA 1959 FIT 1959 FOBT 1959 Sigmoidoscopy 1959 HPV/Cotest 11/04/1989 Mammogram 06/01/2021 06/01/2020 Cervical Cancer Screening 04/19/2023 Pap Smear 04/19/2023 04/19/2020 Influenza Vaccine (#1) 2025 , 05/14/2023, 07/24/2022, Additional history exists Colonoscopy 05/09/2031 05/09/2021, 05/09/2021 Colorectal Cancer Screening 05/09/2031 Pneumococcal Vaccine: 65+ Years Completed 03/26/2024, 06/07/2023, 05/26/2018, Additional history exists Procedures Procedure Name Priority Date/Time Associated Diagnosis Comments BI MAMMOGRAM SCREENING TOMOSYNTHESIS BILATERAL Routine 06/01/2020 Encounter for screening for human papillomavirus (HPV) Encounter for gynecological examination (general) (routine) without abnormal findings Encounter for screening mammogram for malignant neoplasm of breast Encounter for screening for malignant neoplasm of vagina THINPREP TIS PAP AND HPV MRNA E6/E7 REFLEX HPV 16,18/45 ([id number]) Routine 04/19/2020 from Last 3 Months or Most Recently Relevant to Health Maintenance Results * Bilateral screening mammogram with tomosynthesis (06/01/2020) Anatomical Region Laterality Modality Breast Bilateral Mammography Impressions 06/01/2020 12:00 AM EST BIRADS 2 : BENIGN FINDINGS, NORMAL INTERVAL FOLLOW UP. MAMMOGRAPHY IS VERY IMPORTANT TO YOUR HEALTH. THE CURRENT [employer] AND N[employer] COMPREHENSIVE CANC[employer] NETWORK GUIDELINES RECOMMEND ANNUAL MAMMOGRAPHY BEGINNING AT AGE 40. THIS FACILITY UTILIZES A REMINDER SYSTEM TO ENSURE ALL PATIENTS RECEIVE A REMINDER NOTIFICATION AT THE APPROPRIATE TIME BASED ON THE RECOMMENDATIONS OF THIS EXAM. BOARD CERTIFIED RADIOLOGIST. ACCREDITED BY THE [facility] AND FDA. Report reported and signed by Mayra Camacho on 06/03/2020 1132 Narrative 06/01/2020 12:00 AM EST PERFORMED AT [facility] LOCATION:[place] [id number] EXAMINATION: Screening Mammogram CLINICAL HISTORY: History of negative left breast biopsy. No family history cancer. COMPARISON: Dating back to 06/18/2011 TECHNIQUE: 2D and 3D Tomosynthesis of the right and left breasts was performed. FINDINGS: There is a minimal amount of residual fibroglandular tissue within each breast. There are no suspicious masses, areas of suspicious microcalcifications or areas of architectural distortion identified. No evidence of skin thickening. There are stable benign-appearing calcifications present. Procedure Note CONVERSION, GENERIC - 01/04/2023 PERFORMED AT [facility] LOCATION:[place] [address] EXAMINATION: Screening Mammogram CLINICAL HISTORY: History of negative left breast biopsy. No familyhistory cancer. COMPARISON: Dating back to 06/18/2011 TECHNIQUE: 2D and 3D Tomosynthesis of the right and left breasts wasperformed. FINDINGS: There is a minimal amount of residual fibroglandular tissue within eachbreast. There are no suspicious masses, areas of suspicious microcalcifications orareas of architectural distortion identified. No evidence of skin thickening.There are stable benign-appearing calcifications present. IMPRESSION: BIRADS 2 : BENIGN FINDINGS, NORMAL INTERVAL FOLLOW UP. MAMMOGRAPHY IS VERY IMPORTANT TO YOUR HEALTH. THE CURRENT [employer] OF RADI[employer] AND NATIONAL COMPREHENSIVE CANCER NETWORK GUIDELINES RECOMMEND ANNUALMAMMOGRAPHY BEGINNING AT AGE 40. THIS FACILITY UTILIZES A REMINDER SYSTEM TO ENSURE ALL PATIENTS RECEIVE AREMINDER NOTIFICATION AT THE APPROPRIATE TIME BASED ON THE RECOMMENDATIONS OF THISEXAM. BOARD CERTIFIED RADIOLOGIST. ACCREDITED BY THE APR AND FDA. Report reported and signed by Mayra Camacho on 06/03/2020 1132 us Jose Kraft MD IMG BI PROCEDURES Final Result * THINPREP TIS PAP AND HPV MRNA E6/E7 REFLEX HPV 16,18/45 ([id number]) (04/19/2020) CLINICAL INFORMATION: None given [facility] LMP: None given [facility] PRE[facility]. PAP: None given [facility]. BX: None given [facility] SOURCE: Vagina [facility] STATEMENT OF ADEQUACY: SATISFACTORY FOR EVALUATION [facility] INTERPRETATION/RE SULT: Negative for intraepithelial lesion or malignancy. [facility] COMMENT: This Pap test has been evaluated with computer assisted technology. [facility] ALUMINUM SIDING APPLICATOR: SEE COMMENT [facility] Comment: PE, CT(ASCP) CT screening location: [place] [address]. COMMENT SEE COMMENT [facility] Comment: EXPLANATORY NOTE: The Pap is a screening test for cervical cancer. It is not a diagnostic test and is subject to false negative and false positive results. It is most reliable when a satisfactory sample, regularly obtained, is submitted with relevant clinical findings and history, and when the Pap result is evaluated along with historic and current clinical information. HPV MRNA E6/E7 Not Detected Not Detected [facility] Comment: This test was performed using the APTIMA HPV Assay ([employer] This assay detects E6/E7 viral messenger RNA (mRNA) from 14 high-risk HPV types (16,18,31,33,35,39,45,51,52,56,58,59,66,68). The analytical performance characteristics of this assay have been determined by [employer]. The modifications have not been cleared or approved by the FDA. This assay has been validated pursuant to the CLIA regulations and is used for clinical purposes. 04/19/2020 us Jose Kraft MD [facility] Final Result [facility] from Last 3 Months or Most Recently Relevant to Health Maintenance Insurance [facility] Care Teams Project Program Manager Relationship Specialty Start Date End Date Marisela Falk NP [address] [place], [place] [phone] Referring Physician Family Medicine 03/13/24
--- OUTSIDE RECORDS SUMMARY | 2025-03-18 10:50 | XMS_ITS | Encounter Summary ---
Author Organization [facility] Address [address] [place] [address] Care Team Providers Care Utility Sales And Service Manager Name Role Phone Sammy Apple DO Unavailable [phone] Marisela Falk APRN.[facility] Primary Care Provider Catalina Watson MD Unavailable [phone] Santino Aviles MD Primary Care Provider [phone] Source Comments In the event this information is protected by the Federal Confidentiality of Alcohol and Drug AbusePatient Records regulations: The Federal rules restrict any use of the information to criminally investigate or prosecute any alcohol or drug abuse patient.[facility] Encounter Details Date Type Department Care Team (Late st Contact Info) Description 04/22/2024 Patient Msg Orthopaedics [address] [place] [address] Robert Harrison PA [address] [address] Work Letter Social History Tobacco Use Types Packs/Day Years [...] is lower risk 5 10/01/2023 Data from: https://www.neighborhoodatlas.[facility] /. Last address used for calculation [address] [...] [facility] [address] [place] [address] labs 02/14/2026 9:00 AM EDT Office Visit Rheumatology [address] [facility] [place] [address] Shanna Muller MD [address] [facility] [place] [address] RTC after DXA- 6-12 mo f/u documented as of this encounter Visit Diagnoses Not on filedocumented in this encounter Care Teams Utility Sales And Service Manager Relationship Specialty Start Date End Date Marisela Falk, STREET INSPECTOR.HYDROGEN POWER PLANT MANAGER [address] [place] [address] PCP - General 12/23/23 06/14/24 Santino Aviles MD [address] [place] [address] PCP - General Family Medicine 06/15/24 Sammy Apple DO [address] [place] [address] Orthopedics 10/02/23 Catalina Watson MD [address] [address] Referring Dermatology 05/14/24 documented as of this encounter
--- OUTSIDE RECORDS SUMMARY | 2025-03-18 10:50 | XMS_ITS | Encounter Summary ---
Author Organization [facility] Address [address] [place] [address] Care Team Providers Care Body Liner Name Role Phone Tiffanie Guerrero MD Primary Care Provider [phone] Sammy Apple DO Unavailable [phone] Marisela Falk APRN.[facility] Primary Care Provider Catalina Watson MD Unavailable [phone] Santino Aviles MD Primary Care Provider [phone] Source Comments In the event this information is protected by the Federal Confidentiality of Alcohol and Drug AbusePatient Records regulations: The Federal rules restrict any use of the information to criminally investigate or prosecute any alcohol or drug abuse patient.[facility] Encounter Details Date Type Department Care Team (Late st Contact Info) Description 09/26/2023 Get Medical Advice Rheumatology [address] [place] [address] Shanna Muller MD [address] [address] Appointment Social History Tobacco Use Types Packs/Day Years Used Date Smoking Tobacco: Never Smokeless Tobacco: Never Alcohol Use Standard Drinks/Week Comments Yes 0 (1 standard drink = 0.6 oz pur e alcohol) week-ends Area Deprivation Index Answer Date Rudy rded National Score (1-100), lowe r number is lower risk 69 07/18/2022 State Score (1-10), lower number is lower risk N ot on file 07/18/2022 Data from: https://www.neighborhoodatlas.[facility] /. Last address used for calculation [address] 07/18/2022 Comments No Sex and Gender Information Value [...] Naomi Payton MA documented in this encounter Miscellaneous Notes * Telephone Encounter - Monika Zavala MA - 09/27/2023 3:50 PM EDT Images from the original note were not included. [address] Rheum Nurse Pool (supporting Shanna Muller MD) 3 hours ago (12:26 PM) [place] Just keep my current appt for September 30 please documented in this encounter Plan of Treatment Upcoming Encounters Date Type Department Care Team (Late st Contact Info) Description 03/22/2025 9:00 AM EDT Results Only [facility] [address] [place] [address] [place] [address] labs 02/14/2026 9:00 AM EDT Office Visit Rheumatology [address] [facility] [place] [address] Shanna Muller MD [address] [facility] [place] [address] RTC after DXA- 6-12 mo f/u documented as of this encounter Visit Diagnoses Not on filedocumented in this encounter Care Teams Body Liner Relationship Specialty Start Date End Date Tiffanie Guerrero MD [address] [place] [phone] PCP - General 10/11/00 12/22/23 Marisela Falk APRN.INSTRUCTOR CREELER [address] [phone] PCP - General 12/23/23 06/14/24 Santino Aviles MD [address] [place] [address] PCP - General Family Medicine 06/15/24 Sammy Apple DO [address] [place] [address] Orthopedics 10/02/23 Catalina Watson MD [address] [facility] [address] [place] [phone] Referring Dermatology 05/14/24 documented as of this encounter
--- OUTSIDE RECORDS SUMMARY | 2025-03-18 10:50 | XMS_ITS | Clinical Summary ---
Author Organization [facility] Address [address] [place] [address], [address] [place] [address] Care Team Providers Care Product Representative Name Role Phone Unavailable Primary Care Provider Unavailabl e Social History Tobacco Use Types Packs/Day Years Used Date Smoking Tobacco: Never Assessed Comments Unknown Sex and Gender Information Value Date Recorded Sex Assigned at Not on file Legal Sex Female 9:30 PM EDT Gender Identity Not on file Sexual Orientation Not on file Plan of Treatment Not on file
--- OUTSIDE RECORDS SUMMARY | 2025-03-18 10:50 | XMS_ITS | Clinical Summary ---
Author Organization [facility] Address [address] [place] [address] Phone Care Team Providers Care Temperature Regulator Name Role Phone Tiffanie Guerrero MD Primary Care Provider Social History Tobacco Use Types Packs/Day Years Used Date Smoking Tobacco: Never Assessed Comments Unknown Sex and Gender Information Value Date Recorded Sex Assigned at Not on file Legal Sex Female 11:03 PM EST Gender Identity Not on file Sexual Orientation Not on file Plan of Treatment Not on file Care Teams Temperature Regulator Relationship Specialty Start Date End Date Tiffanie Guerrero MD [address] MD [facility] [place] [address] PCP - General 02/14/18
--- OUTSIDE RECORDS SUMMARY | 2025-03-18 11:02 | XMS_ITS | CCD ---
Author Organization [facility] Inform ion Partnership [facility] Care Team Providers Care Registered Representative Name Role Phone Aline Guerrero Unavailable Clifton, Rosa Santino Unavailable SHANTE DELAROSA Unavailable Unavailable SHANTE DELAROSA Unavailable Unavailable GUERRERO, ALINE Conner Unavailable Unavailable ISAURASHANTE Unavailable Unavailable GUERRERO, ALINE Conner Unavailable Unavailable CLIFTON, ROSA SANTINO Unavailable Unavailable CLIFTON, ROSA SANTINO Unavailable Unavailable CLIFTON, ROSA SANTINO Unavailable Unavailable GUERRERO, ALINE E Unavailable Unavailable CLIFTON, ROSA SANTINO Unavailable Unavailable CLIFTON, ROSA SANTINO Unavailable Unavailable CLIFTON, ROSA SANTINO Unavailable Unavailable GUERRERO, ALINE E Unavailable Unavailable CLIFTON, ROSA SANTINO Unavailable Unavailable CLIFTON, ROSA SANTINO Unavailable Unavailable GUERRERO, ALINE E Unavailable Unavailable CLIFTON, ROSA SANTINO Unavailable Unavailable CLIFTON, ROSA SANTINO Unavailable Unavailable GUERRERO, ALINE E Unavailable Unavailable Aline Guerrero Primary Care Provider ALINE GUERRERO Primary Care Physician Jesus Higgins Jr. Unavailable Tonia Zavala Unavailable Naty Luke Unavailable Consuelo Rosales Unavailable Aline Guerrero MD Primary Care Provider MD Aline Guerrero Primary Care Provider NANCY Rosales Attending Provider RADHA Berry Attending Provider Naomie Berry Unavailable Aline Guerrero MD Primary Care Provider [phone] Aline Guerrero MD Primary Care Provider Aline Guerrero MD Primary Care Provider ALINE GUERRERO Primary Care Physician [phone] MD Aline Guerrero Primary Care Provider [phone] RADHA Berry Attending Provider Silvestre Benavides Primary Care Physician CESAR ., DR ALINE Conner Primary Care Unavailable APLING, MERLINE B Consulting Unavailable APLING, MERLINE B Attending Unavailable APLING, MERLINE B Admitting Unavailable ROSS, SILVESTRE REGINE Primary Care Unavailable ZIEBMIA, DR NHUNG Harry Consulting Unavailable SHERRI PINEDO Attending Unavailable HIGHLANDERHSERRI Admitting Unavailable HIGHLANDERSHERRI Consulting Unavailable GUERRERO ., DR ALINE Conner Primary Care Unavailable SAMSA ., LELO Admitting Unavailable SAMSA ., LELO Attending Unavailable MAPUS, TONDRA Admitting Unavailable MAP, TONDRA Attending Unavailable GUERRERO ., DR ALINE Conner Primary Care Unavailable TEE PULIDO Attending Unavailable TEE PULIDO Admitting Unavailable GUERRERO ., DR ALINE Conner Primary Care Unavailable MARKER ., DR SANTA Consulting Unavailable KARSON CHAUDHARY Consulting Unavailable ERINSSILVESTRE Consulting Unavailable TEE PULIDO Consulting Unavailable MAKAYLA, SILVESTRE REGINE Consulting Unavailable FAWWAD, SANABRIA H Attending Unavailable GUERRERO ., DR ALINE Conner Primary Care Unavailable FAWWAD, SANABRIA H Admitting Unavailable FAWWAD, SANABRIA H Consulting Unavailable STEVO LOMAX Consulting Unavailable SAWYER BEASLEY Consulting Unavailab GEOVANNY Pulido Consulting Unavailable RASTERAMONITA ALDRIDGEDA Consulting Unavailable EDDY ., POLY Attending Unavailable EDDY ., POLY Admitting Unavailable GUERRERO ., DR ALINE Conner Primary Care Unavailable KARSON SCHMIDT Consulting Unavailable EDDY ., POLY Consulting Unavailable NEWATIA, TYLER Consulting Unavailable DIAB ., STEPHANIE Consulting Unavailable WALESKA ., CIARA Attending Unavailable GUERRERO ., DR ALINE Conner Primary Care Unavailable WALESKA ., CIARA Admitting Unavailable ZIEBMIA, DR NHUNG Harry Consulting Unavailable DAX .KATARZYNA Consulting Unavailable GUERRERO ., DR ALINE Conner Primary Care Unavailable MISC, DR MARX Attending Unavailable MISC, DR MARX Admitting Unavailable SILVESTRE BENAVIDES Primary Care Unavailable SAMSA ., LELO Admitting Unavailable SAMSA ., LELO Consulting Unavailable SAMSA ., LELO Attending Unavailable MAPUS, TONDRA Consulting Unavailable MAPUS, TONDRA Attending Unavailable SILVESTRE BENAVIDES Primary Care Unavailable MAPUS, TONDRA Admitting Unavailable [...] GUERRERO ., DR ALINE Conner Admitting Unavailable WEST, DR KARSON Valencia Consulting Unavailable GuerreroAline lyons MD Primary Care Provider [phone] MEDARDO VUONG Attending Unavailable ALINE GUERRERO Primary Care Unavailable SELF, SELF Referring Unavailable SELF, SELF Referring Unavailable ALINE GUERRERO Primary Care Unavailable PUJA PENDLETON Attending Unavailable PUJA PENDLETON Referring Unavailable ALINE GUERRERO Primary Care Unavailable PUJA PENDLETON Attending Unavailable MEDARDO VUONG Attending Unavailable MEDARDO VUONG Referring Unavailable ALINE GUERRERO Primary Care Unavailable Rosa Dunbar Attending Unavail able Silvestre Benavides Primary Care Unavailable Bettina, Rosa Vásquez Admitting Unavail able Bettina, Rosa Vásquez Admitting Unavail able Rosa Dunbar Attending Unavail able Silvestre Benavides Primary Care Unavailable Silvestre Benavides MD Primary Care Provider [phone] MD Aline Guerrero Primary Care Provider [phone] Mapus, STERILE PRODUCTS PROCESSOR Tondra K Attending Provider [phone] ALINE GUERRERO Referring Unavailable ALINE GUERRERO Primary Care Unavailable Louis Cortez DO Unavailable Aline Guerrero MD Primary Care Provider ALINE GUERRERO Primary Care Unavailable ENTEZARI, JOHN Referring Unavailable Kirit STERILE PRODUCTS PROCESSOR.Berry ASHFORD Primary Care Provider [phone] Berry Beth Attending Unavailable Berry Beth Attending Unavailable WOJCIECH, ARABELLA A Attending Unavailable MD Silvestre Benavides Attending Unavailable Kirit, Berry L Attending Unavailable STEVO NEFF Admitting Unavailable STEVO NEFF Attending Unavailable DO Gaston Contreras SYury Attending Unavailable Albaro Baltazar Attending Unavailable MAKEDA Stanton L Attending Martha Rainer Crowell Attending Unavailable Teodora Ott Attending Unavailable Kirit, Berry L Attending Unavailable Kirit, Berry L Attending Unavailable Kirit, Berry L Attending Unavailable Kirit, Berry L Attending Unavailable Kirit, Berry L Attending Unavailable Diane, Gaston S. Attending Unavailable Naeven Martin Attending Unavailable Kirit, QUALITY ASSURANCE INTERN Berry Olivas Attending Unavailable Kirit, CHINO Olivas Attending Unavailable MARISOLAndrea MERCEDES Admitting Unavailable nAdrea DAMON Attending Unavailable [facility] Cardio, XXXX Consulting Unavailable Gurpreet Smith Consulting Unavailable MD Gurpreet Smith Consulting Unavailable Gurpreet Smith Consulting Unavailable Kodak Stanton Consulting UnavailMD Kodak Hicks Consulting Unava ilKodak Garcia Consulting Unavaila Berry Mendoza Primary Care Physician Lalo Boyd Attending Unavailable Lalo Boyd Admitting Unavailable Berry Beth Attending Unavailable DO Shalom Toledo Attending Unavailable DokkDO javier Kaylgarret A Attending Unavailable ISAAC, Ronobir R Admitting Unavailable ISAAC Ronobir R Attending Unavailable Louis Beyer Consulting Unavailable Nanda Beyer Consulting Unavailable Louis Beyer S Consulting Unavailable Kayleen, Louis S Consulting Unavailable Kayleen, Louis S Consulting Unavailable Kayleen, Louis S Consulting Unavailable Blank, Luois S Consulting Unavailable Blank, Louis S Consulting Unavailable Kayleen, Louis S Consulting Unavailable Kayleen, Louis S Consulting Unavailable Dmitriy Marcial Consulting Unavailable Dmitriy Marcial Consulting Unavailable Dmitriy Marcial Consulting Unavailable ISAAC, DO Ronobir R Admitting Unavailabl e ISAAC, DO Ronobir R Attending Unavailabl e Louis Beyer S Consulting Unavailable Nanda Beyer Consulting Unavailable Kayleen Louis S Consulting Unavailable Kayleen, Louis S Consulting Unavailable Blank, Louis S Consulting Unavailable Blank, Louis S Consulting Unavailable Blank, Louis S Consulting Unavailable Blank, Louis S Consulting Unavailable Blank, Louis S Consulting Unavailable Blank, Louis S Consulting Unavailable MD Dmitriy Marcial Consulting Unavailable Aniket, Mohamed F. Consulting Unavailable Aniket, Mohamed F. Consulting Unavailable Kirit, Berry Olivas Admitting Unavailable Sung Stahl Attending Unavaila ble ARABELLA JEFFREY Attending Unavailable Kirit STERILE PRODUCTS PROCESSOR.Berry ASHFORD Primary Care Provider Lalo Boyd Admitting Unavailable Lalo Boyd Attending Unavailable KiritBerry holm Admitting Unavailable Albaro Baltazar Attending Unavailable KiritBerry Attending Unavailable ISAAC, DO Ronobir R Admitting Unavailabl e ISAAC, DO Ronobir R Attending Unavailabl e Aniket, Dmitriy FYury Consulting Unavailable Aniket, Mohamed FYury Consulting Unavailable Aniket, Mohamed F. Consulting Unavailable Kirit STERILE PRODUCTS PROCESSOR.Berry ASHFORD Primary Care Provider Berry Beth MD Unavailable Kellie Watson MD Unavailable Santino Moran MD Primary Care Provider Silvestre Benavides MD Primary Care Provider [phone] Silvestre Benavides MD Primary Care Provider [phone] Santino Moran Primary Care Physician ROS CHRISTIANSON Referring Unavailabl e ALINE GUERRERO Primary Care Unavailable SANTINO MORAN Referring Unavailable ALINE GUERRERO Primary Care Unavailable ARRON, JUANA Admitting Unavailable ARRON, JUANA Attending Unavailable ARRON, JUANA Referring Unavailable Lalo Boyd Attending Unavailable NONE, XXXX Referring Unavailable Oswald Curry Attending Unavailable Berry Beth Attending Unavailable NONE, XXXX Referring Unavailable Oswald Curry Admitting Unavailable Oswald Curry Attending Unavailable NONE, XXXX Referring Unavailable Oswald Curry Attending Unavailable Oswald Curry Admitting Unavailable Oswald Curry Admitting Unavailable Oswald Curry Attending Unavailable Oswald Curry Referring Unavailable Ze Francois MD Attending Provider Santino Moran MD Primary Care Provider [phone] Siomara Moreland APRN Attending Provider [phone] Ze Francois MD Attending Provider [phone] Siomara Moreland APRN Attending Provider Santino Moran MD Primary Care Provider [phone] Consuelo Rosales APRN Attending Provider Marcelle Marcos APRN Attending Provider Kirit DISPATCHER CHIEF OIL, Berry Unavailable ADAM HERNANDEZ Attending Unavailable RAMBASEClif, ADAM Conner Attending Unavailable ADAM HERNANDEZ Attending Unavailable LOUIS CORTEZ Referring Unavailable LOUIS CORTEZ Attending Unavailable ADAM HERNANDEZ Attending Unavailable MERLINE PRIETO Attending Unavailable KELLIE WATSON Attending Unavailable Ze Francois MD Attending Provider [phone] NO FAMILY, PHYSICIAN Primary Care Provider Unava ilable Louis Cortez DO Unavailable ENTEZARI, JOHN Admitting Unavailable ENTEZARI, JOHN Attending Unavailable KIRIT, BERRY BENÍTEZ Primary Care Unavailable SANTINO MORAN M Primary Care Unavailable ROS CHRISTIANSON Attending Unavailable HODash, SANTINO M Primary Care Unavailable STEVO NEFF Referring Unavailable KIRIT, BERRY TINA Primary Care Unavailable KIRIT, BERRY BENÍTEZ Primary Care Unavailable ENTEZARI, JOHN Referring Unavailable STEVE GAMBINO Attending Unavailable KIRITBERRY Primary Care Unavailable ENTEZARI, JOHN Referring Unavailable STEVE GAMBINO Referring Unavailable KIRIT, BERRY TINA Primary Care Unavailable HOY, SANTINO M Primary Care Unavailable STEVO NEFF Attending Unavailable DELVIN OMRANLAS M Primary Care Unavailable KELLIE WATSON Referring Unavailable ERIK ALEJANDRO Attending Unavailable KIRIT, BERRY TINA Primary Care Unavailable ENTEZARI, JOHN Referring Unavailable STEVE GAMBINO Attending Unavailable KIRIT, BERRY TINA Primary Care Unavailable ENTEZARI, JOHN Admitting Unavailable ENTEZARI, JOHN Attending Unavailable KIRIT, BERRY BENÍTEZ Primary Care Unavailable ENTEZARI, JOHN Referring Unavailable KIRIT, BERRY TINA Primary Care Unavailable ENTEZARI, JOHN Attending Unavailable KIRITBERRY Primary Care Unavailable ROS CHRISTIANSON Attending Unavailable KIRIT, BERRY ALLENN Primary Care Unavailable MEGHAN ROS Referring Unavailable KIRIT, BERRY BENÍTEZ Primary Care Unavailable ENTEZARI, JOHN Referring Unavailable KIRIT, BERRY BENÍTEZ Primary Care Unavailable ENTEZARI, JOHN Referring Unavailable KIRIT, BERRY BENÍTEZ Primary Care Unavailable ELAYNE, JOHN Attending Unavailable SANTINO MORAN Primary Care Unavailable ERIK ALEJANDRO Referring Unavailable Santino Moran MD Primary Care Unavaila ble Alphonso DPM, Maurice Trotter Attending Unavailab nunu Werner DPM, Maurice Trotter Attending Unavailab Santino Padilla MD Primary Care Unavaila ble Surfield, Ze Admitting Unavailable Surfield, Ze Attending Unavailable Surfield, Ze Admitting Unavailable Surfield, Ze Attending Unavailable Surfield, Ze Admitting Unavailable Surfield, Ze Attending Unavailable Santino Moran Primary Care Unavailable Siomara Moreland Admitting Unavailable Siomara Moreland Attending Unavailable NO FAMILY, PHYSICIAN Primary Care Unavailable Surfield, Ze Attending Unavailable Surfield, Ze Admitting Unavailable ARRON, JUANA Admitting Unavailable ARRON, JUANA Attending Unavailable ARRON, JUANA Referring Unavailable Kirit, QUALITY ASSURANCE INTERN Berry L Admitting Unavailable Kirit, QUALITY ASSURANCE INTERN Berry L Admitting Unavailable SELWYN Curry Attending Unavailable Marcelle Bernal Attending Unavailable Tammie Cortes Attending Unavailable Kirit, QUALITY ASSURANCE INTERN Berry L Attending Unavailable Kirit, QUALITY ASSURANCE INTERN Berry L Attending Unavailable NONE, XXXX Referring Unavailable SELWYN Curry Admitting Unavailable SELWYN Curry Attending Unavailable NONE, XXXX Referring Unavailable SELWYN Curry Admitting Unavailable SELWYN Curry Attending Unavailable NONE, XXXX Referring Unavailable SELWYN Curry Admitting Unavailable SELWYN Curry Attending Unavailable SANTINO MORAN Primary Care Unavailable ANDREW MILLER Attending Unavailable Allergies Allergy Classification Reported Allergen(s) Allergy Type Date of Onset Reaction(s) Facility Cephalosporins (antibiotic) (1 source) Cephalexin Drug Allergy 10-19-19 [facility] Work Phone: Penicillins (antibiotic) (1 source) Penicillins Drug Allergy 01-05-20 04 [facility] Unclassified (7 sources) No Latex Allergy [Other] Propensity to adverse reactions 10-19-19 05 [facility] Work Phone: (20 sources) cephalexin; Translations: [CEPHALEXIN] Drug Allergy 10-19-19 05 Hives, Weal (disorder), Other [facility] Work Phone: (20 sources) Penicillins; Translations: [PENICILLINS] Propensity to adverse reactions to drug 01-05-20 04 [facility] Work Phone: (20 sources) Penicillin G; Translations: [penicillin G benzathine] Drug Allergy 09-13-19 23 Weal (disorder) [facility] (20 sources) Cephalexin; Translations: [Keflex] Drug Allergy 07-01-18 85 hives/breathin g issues [facility] (16 sources) Penicillins (Antibiotic) Drug allergy hives /breathing issues [employer] Other (20 sources) apixaban; Translations: [APIXABAN] Drug Allergy 01-24-20 22 [facility] ([facility] sources) Penicillins Propensity to adverse reactions 01-05-20 04 [facility] (20 sources) apixaban; Translations: [apixaban] Drug Allergy Unknown (qualifier value) [facility] (20 sources) cefprozil; Translations: [cefprozil] Drug Allergy Unknown (qualifier value) [facility] (20 sources) dabigatran etexilate; Translations: [dabigatran] Drug Allergy Unknown (qualifier value) [facility] (2 sources) Penicillins Drug allergy (disorder) 07-01-18 65 [facility] (20 sources) apixaban Drug Allergy 01-24-20 22 Itching, [facility] (20 sources) Penicillins Propensity to adverse reactions to drug 01-05-20 04 [facility] (2 sources) Penicillin; Translations: [penicillin] Drug Allergy [facility] (20 sources) Benzathine penicillin - chemical Allergy to substance 03-01-20 [facility] (20 sources) Cefprozil Allergy to substance 05-06-20 Unknown [facility] (20 sources) dabigatran etexilate Drug Allergy 05-06-20 23 Unknown [facility] (20 sources) Sulfamethoxazole / Trimethoprim; Translations: [Bactrim] Drug Allergy [facility] (20 sources) tree nut, unspecified; Translations: [TREE NUTS] Drug Allergy 04-14-20 24 Anaphylaxis [facility] (20 sources) dabigatran etexilate Drug Allergy 11-11-19 24 Unknown [facility] (4 sources) Penicillins Drug Allergy 01-05-20 04 Hives [facility] (1 source) Cephalexin Drug Allergy 12-21-19 [facility] Rep[facility] (1 source) Penicillins Drug allergy (disorder) 12-21-19 [facility] Repository Medications Current Medications Medication Drug Class(es) [...] ONCE A WEEK for 84 Active acetaminophen 1000 mg oral tablet (19 sources) Start: 04-16-2024 take 1000 mg by mouth every eight hours as needed for pain Tylenol 1,000 mg, Oral, q8hr, PRN as needed for pain, Refills(s) 0 Start Date: 04/16/24 Status: Ordered Start: 04-14-2024 End: 05-14-2024 take 2 tablets by mouth every eight hours as needed acetaminophen (TYLENOL EXTRA STRENGTH) 500 mg tablet Take 2 tablets by mouth every 8 hours as needed for pain. 180 tablet 04/14/2024 05/14/2024 Active Start: 01-23-2022 take 2 tablets by mo [facility] every four hours as needed acetaminophen 325 MG tablet Take 2 tablets by mouth every 4 hours as needed for Mild Pain. 50 tablet 1 01/23/2022 Active Start: 01-23-2022 End: 01-24-2022 take 1 tablet by mouth every six hours acetaminophen (TYLENOL) tablet 1,000 mg acetaminophen 325 mg / HYDROcodone bitartrate 5 mg oral tablet (1 source) Opioid Agonist Start: 12-31-2023 take 1 tablet by mouth every four hours for pain acetaminophen-hydrocodone 325 mg-5 mg oral tablet 1 tab(s), Oral, q4hr for pain, Refill(s) 0 Start Date: 12/31/23 Status: Ordered acetaminophen 325 mg / oxyCODONE hydrochloride 5 [...] 1 puff Inhalation every 12 hrs Active [id number] 200 actuat albuterol 0.09 mg/actuat metered dose inhaler (20 sources) beta2-Adren ergic Agonist Start: 11-07-2023 take 1 puff(s) by inhalation every four to six hours Start: 08-05-2023 take 2 puff(s) by mo [facility] every four hours as needed albuterol HFA 90 mcg/act inhaler INHALE 2 PUFFS BY MOUTH EVERY 4 HOURS NEEDED FOR SHORTNESS OF BREATH 08/05/2023 Active Start: 09-05-2022 take 1 dose by inhal ation every four hours ProAir RespiClick 90 mcg/inh inhalation powder 2 puff(s), Inhalation, q4hr for wheezing or SOB, 1 EA, Refill(s) 11, [facility]/pharmacy #[id number], 144.8, cm, 09/05/22 15:24:00 EST, Height/Length Dosing, 82.7, kg, 09/05/22 15:24:00 EST, Weight Dosing Start Date: 09/05/22 Status: Ordered Start: 09-05-2022 End: 10-21-2023 take 1 dose by inhalation every four hours ProAir RespiClick 108 (90 Base) MCG/ACT breath-activated inhaler 2 puff(s), Inhalation, q4hr for wheezing or SOB, 1 EA, Refill(s) 11, [facility]/pharmacy #[id number], 144.8, cm, 09/05/22 15:24:00 EST, Height/Length Dosing, 82.7, kg, 09/05/22 15:24:00 EST, Weight Dosing 09/05/2022 10/21/2023 Discontinued (Med list cleanup) Start: 08-31-2022 take 2 puff(s) by in [...] 4-6 hours for 14 days Nov, Active albuterol 0.833 mg/ml / ipratropium bromide 0.167 mg/ml inhalation solution (20 sources) Anticholinergic, beta2-Adrenergic Agonist Start: 12-29-2023 take 3 mL by inhalation four times daily DuoNeb 2.5 mg-0.5 mg/3 mL Soln-Inh 3 mL, Inhalation, QID, 60 EA, Refill(s) 0, [id number], 144, cm, 12/29/23 20:32:00 EDT, Height/Length Dosing, 92.3, kg, 12/29/23 20:32:00 EDT, Weight Dosing Start Date: 12/29/23 Status: Ordered Start: 2023 ipratropium-al buterol (Duo-Neb) 0.5-2.5 mg/3 mL nebulizer solution 2023 Active Start: 10-18-2023 DuoNeb 2.5 mg- 0.5 mg/3 mL Soln-Inh 3 mL, NEB, 6x/Day, 180 mL, Refill(s) 1, [id number], 143, cm, 10/18/23 15:30:00 EDT, Height/Length Dosing, 90, kg, 10/18/23 15:30:00 EDT, Weight Dosing Start Date: 10/18/23 Status: Ordered Start: 10-01-2022 DuoNeb 2.5 mg- 0.5 mg/3 mL Soln-Inh 3 mL, NEB, 6x/Day, 180 mL, Refill(s) 1, [facility]/pharmacy #[id number], 143.2, cm, 10/01/22 7:16:00 EDT, Height/Length Dosing, 86.8, kg, 10/01/22 7:16:00 EDT, Weight Dosing Start Date: 10/01/22 Status: Ordered Start: 09-05-2022 DuoNeb 2.5 mg- 0.5 mg/3 mL Soln-Inh 3 mL, NEB, 6x/Day, Refill(s) 0 Start Date: 09/05/22 Status: Ordered ALPRAZolam 0.25 mg oral tablet (5 sources) Benzodiazepine Start: 11-20-2024 take 1 tablet by mouth once daily aspirin 81 mg delayed release oral tablet (20 sources) Platelet Aggregation Inhibitor, Nonsteroidal Anti-inflammatory Drug Start: 04-14-2024 End: 02-15-2025 take 1 tablet by mouth twice daily aspirin, enteric coated (ADULT LOW DOSE ASPIRIN) 81 mg EC tablet Take 1 tablet by mouth two times a day for 14 days. 28 tablet 04/14/2024 02/15/2025 Discontinued (Course of therapy completed) benzonatate 100 mg oral capsule (10 sources) Non-narcotic Antitussive Start: 12-27-2023 End: 01-03-2024 take 1 capsule by mouth three times daily Tessalon 100 mg Cap 100 mg = 1 cap(s), Oral, TID, X 7 day(s), # 21 cap(s), Refills(s) 0, Pharmacy: [facility]/pharmacy #[id number], 143, cm, 12/27/23 15:07:00 EDT, Height/Length Dosing, 89, kg, 12/27/23 15:07:00 EDT, Weight Dosing Start Date: 12/27/23 Stop Date: 01/03/24 Status: Ordered Start: 12-20-2021 take 1 capsule by mo uth every eight hours as needed for cough benzonatate 200 MG capsule TAKE 1 CAPSULE BY MOUTH EVERY 8 HOURS NEEDED FOR COUGH 0 12/20/2021 Active Start: 12-15-2021 take 1 capsule by mo uth three times daily as needed Tessalon Perles [...] / pseudoephedrine hydrochloride 6 mg/ml oral solution (2 sources) alpha-Adrenergic Agonist, Uncompetitive U-dsqpxn-U-aspartat e Receptor Antagonist, Sigma-1 Agonist Start: 08-09-2024 End: 08-14-2024 take 10 mL by mouth four times daily Bromfed DM oral syrup 10 mL, Oral, QID for 5 day(s), 200 mL, Refill(s) 0, [facility]/pharmacy #[id number], 142, cm, 08/09/24 11:57:00 EST, Height/Length Dosing, 80.4, kg, 08/09/24 11:57:00 EST, Weight Dosing Start Date: 08/09/24 Stop Date: 08/14/24 Status: Ordered Start: 09-07-2022 take 5 mL by mouth f our times daily Bromfed DM oral syrup 5 mL, Oral, QID for cold symptoms, 200 mL, Refill(s) 0, [facility]/pharmacy #[id number], 150, cm, 09/06/22 23:56:00 EST, Height/Length Dosing, 87.3, kg, 09/06/22 23:56:00 EST, Weight Dosing Start Date: 09/07/22 Status: Ordered budesonide 0.25 mg/ml inhalation suspension (6 sources) Corticosteroid Start: 08-31-2024 End: 08-31-2025 budesonide (Pulmicort) 0.5 MG/2ML nebulizer solution Indications: Mild intermittent asthma without complication (HCC) Take 2 mL (0.5 mg) by nebulization 4 (four) times a day as needed (please use in the nebulizer with albuterol up to 4 times per day as needed for asthma) Rinse mouth with water after use to reduce aftertaste and incidence of candidiasis. Do not swallow. 60 mL 11 08/31/2024 08/31/2025 Active calcium carbonate 1500 mg oral tablet (20 sources) take 1 tablet by mouth in the morning calcium carbonate 1500 (600 Ca) MG tablet Take 600 mg by mouth in the morning and 600 mg in the evening. Take with meals. Active Calcium Citrate (20 sources) Start: 10-10-2005 CITRACAL 500 MG (2,376 MG) EFFERVESCENT TAB Indications: Other and unspecified nonspecific immunological findings , Alopecia Take one(1) tablet two(2) times daily. 0 10/10/2005 Active Comment on above: Take one(1) tablet t wo(2) times daily. celecoxib 200 mg oral capsule (20 sources) Nonsteroidal Anti-inflammatory Drug Start: 11-07-2023 take 1 capsule by mouth once daily Start: 11-12-2021 End: 01-23-2022 take 1 capsule by mouth once daily celecoxib 200 MG capsule Take 200 mg by mouth daily. 0 11/12/2021 01/23/2022 Discontinued (Stop Taking at Discharge) Start: 04-18-2011 End: 03-12-2025 take 1 capsule by mouth twice daily celecoxib (CELEBREX) 200 mg capsule TAKE 1 CAPSULE BY MOUTH TWICE A DAY 180 capsule 2 03/12/2025 Active Comment on above: Take 1 capsule by mo ut twice daily. TAKE 1 CAPSULE BY MO UT TWICE A DAY cetirizine hydrochloride 10 mg oral tablet (6 sources) Histamine-1 Receptor Antagonist Start: 12-15-2021 cetirizine 10 MG tablet 2 times daily. 0 12/15/2021 Active Start: 12-15-2021 take 1 tablet by hermelinda every twenty-four hours Cetirizine HCl 10 MG 1 tablet Orally Once a day for 14 days Nov, Active cholecalciferol 0.025 mg oral tablet (20 sources) Vitamin D Start: 04-18-2011 take 1 tablet by mouth once daily Cholecalciferol, Vitamin D3, 1,000 unit ORAL Tab Take 1 tablet by mouth once daily. 0 04/18/2011 Active Comment on above: Take 1 tablet by hermelinda once daily. Cholestyramine (With Sugar) 4 gram powder in packet (5 sources) Start: 06-01-2024 Cholestyramine (With Sugar) 4 gram powder in packet Active 1 EACH PO Daily as needed June 01, 2024 1:00am cholestyramine resin 4000 mg powder for oral suspension (20 sources) Bile Acid Sequestrant Start: 06-01-2024 Start: 05-04-2024 Questran 4 g/9 g oral powder = 1 packet(s), Oral, BID, # 60 EA, Refills(s) 0, samples given to patient (Rx) Start Date: 05/07/24 Status: Ordered Start: 01-24-2022 End: 01-24-2022 4 g, Oral, DAILY, First dose on Sat01/24/22 at 0900, Until Discontinued take 4 g by mouth on ce daily in the morning cholestyramine 4 g Pack Take 4 g by mouth daily every morning. 0 Active take 1 g by mouth once daily Cho lestyramine 4 GM 1 PACK p.o. Daily Active ciprofloxacin 500 mg oral tablet (13 sources) Quinolone Antimicrobial Start: 10-05-2022 take 1 tablet by mouth every twelve hours Cipro 500 MG 1 tablet Orally every 12 hrs for 5 day(s) Sep, Active End: 03-30-2024 ciprofloxacin HCl (CIPRO ORA L) Take by mouth. 03/30/2024 Discontinued ciprofloxacin HC l (CIPRO ORAL) Take by mouth. Active ciprofloxacin HC l (CIPRO ORAL) Take by mouth. 0 Active colchicine 0.6 mg oral tablet (1 source) take 1 tablet by mouth twice daily Colchicine 0.6 MG TAKE 1 TABLET BY MOUTH TWICE A DAY Oral for 30 Active cyclobenzaprine hydrochloride 10 mg oral tablet (20 sources) Muscle Relaxant Start: 09-06-19 23 cyclobenzaprine (FLEXERIL) 10 mg tablet Take by mouth. 09/05/2022 Active Start: 09-05-2022 take 1 tablet by hermelinda th three times daily as needed for muscle spasms cyclobenzaprine 10 mg Tab 10 mg = 1 tab(s), Oral, TID, PRN for spasm, # 30 tab(s), Refills(s) 0, Pharmacy: [facility]/pharmacy #[id number], 149, cm, 02/06/24 15:32:00 EDT, Height/Length Dosing, 86.2, kg, 02/06/24 15:38:00 EDT, Weight Dosing Start Date: 02/24/24 Status: Ordered take 1 tablet by hermelinda [...] dexAMETHasone (DECADRON) injection 10 mg dextromethorphan hydrobromide 3 mg/ml / promethazine hydrochloride 1.25 mg/ml oral solution (6 sources) Phenothiazine, Uncompetitive L-bersvu-J-aspartate Receptor Antagonist, Sigma-1 Agonist Start: 12-31-2023 take 5 mL by mouth every six hours for cough dextromethorphan-promethazine 15 mg-6.25 mg/5 mL Oral Syrup 5 mL 5 mL, Oral, q6hr for cough, 120 mL, Refill(s) 0, [facility]/pharmacy #[id number], 154, cm, 12/31/23 14:02:00 EDT, Height/Length Dosing, 90.2, kg, 12/31/23 14:02:00 EDT, Weight Dosing Start Date: 12/31/23 Status: Ordered Start: 10-05-2023 take 5 mL by mouth every six hours for cough dextromethorphan-promethazine 15 mg-6.25 mg/5 mL Oral Syrup 5 mL 5 mL, Oral, q6hr for cough, 240 mL, Refill(s) 0, [facility]/pharmacy #[id number], 143, cm, 10/05/23 14:20:00 EDT, Height/Length Dosing, 89, kg, 10/05/23 14:20:00 EDT, Weight Dosing Start Date: 10/05/23 Status: Ordered dextromethorphan hydrobromide 1.5 mg/ml / pyrilamine maleate 1.5 mg/ml oral solution (11 sources) Uncompetitive Z-qcfcsk-C-aspartate Receptor Antagonist, Sigma-1 Agonist Start: 04-15-2022 take 10 mL by mouth every eight hours [place] DM 7.5-7.5 MG/5ML 10 mL Orally every 8 hours for 5 days Mar, Active DISABILITY PLACARD (5 sources) Start: 02-15-2022 DISABILITY PLACARD Disability placard end date 05/01/2022. Dx 719.7 1 Each 0 02/15/2022 Active docusate sodium 100 mg oral capsule (11 sources) Start: 04-14-2024 End: 04-28-2024 take 1 capsule by mouth twice daily docusate sodium (COLACE) 100 mg capsule Take 1 capsule by mouth two times a day for 14 days. 28 capsule 04/14/2024 04/28/2024 Active Start: 01-23-2022 End: 01-24-2022 take 1 capsule by mouth twice daily docusate 100 MG capsule Take 1 capsule by mouth 2 times daily. 60 capsule 0 01/23/2022 Active doxycycline monohydrate 100 mg oral capsule (20 sources) Tetracycline-class Drug Start: 12-20-2024 take 1 capsule b y mouth twice daily Start: 08-23-2024 End: 08-30-2024 take 1 tablet by mouth every twelve hours doxycycline hyclate 100 mg Tab 100 mg = 1 tab(s), Oral, q12hr, X 7 day(s), # 14 tab(s), Refills(s) 0, Pharmacy: [facility]/pharmacy #[id number], 142, cm, 08/23/24 14:39:00 EST, Height/Length Dosing, 79.9, kg, 08/23/24 14:39:00 EST, Weight Dosing Start Date: 08/23/24 Stop Date: 08/30/24 Status: Ordered Start: 04-14-2024 End: 12-08-2024 take 1 capsule by mouth twice daily Doxycycline Hyclate 100 mg capsule Discontinued 100 MG PO Twice daily 14 November 20, 2024 12:00am December 08, 2024 9:22am Start: 12-27-2023 End: 01-03-2024 take 1 capsule by mouth twice daily doxycycline monohydrate 100 mg oral capsule 100 mg = 1 cap(s), Oral, BID, X 7 day(s), # 14 cap(s), Refills(s) 0, Pharmacy: [facility]/pharmacy #[id number], 143, cm, 12/27/23 15:07:00 EDT, Height/Length Dosing, 89, kg, 12/27/23 15:07:00 EDT, Weight Dosing Start Date: 12/27/23 Stop Date: 01/03/24 Status: Ordered Start: 09-18-2023 take 1 capsule by mo [facility] twice daily doxycycline hyclate 100 mg Cap 100 mg = 1 cap(s), Oral, BID, # 30 cap(s), Refills(s) 1, Pharmacy: [facility]/pharmacy #[id number], 143.2, cm, 09/18/23 17:04:00 EDT, Height/Length Dosing, 88.2, kg, 09/18/23 17:04:00 EDT, Weight Dosing Start Date: 09/18/23 Status: Ordered Start: 09-07-2022 End: 09-14-2022 take 1 tablet by mouth every twelve hours doxycycline hyclate 100 mg Tab 100 mg = 1 tab(s), Oral, q12hr, X 7 day(s), # 14 tab(s), Refills(s) 0, [id number] 150, cm, 09/06/22 23:56:00 EST, Height/Length Dosing, 87.3, kg, 09/06/22 23:56:00 EST, Weight Dosing Start Date: 09/07/22 Stop Date: 09/14/22 Status: Ordered Start: 04-15-2022 take 1 capsule by mo [facility] every twelve hours Doxycycline Monohydrate 100 MG 1 capsule Orally every 12 hrs for 10 days Mar, Active Start: 01-03-2022 [facility] doxycycline monohydrate 100 MG tablet Take 1 tablet by mouth 2 times daily. 0 01/03/2022 Active Start: 04-18-2011 End: 12-20-2023 Doxycycline Monohydrate 40 m g capsule Take 1 capsule by mouth. 0 04/18/2011 12/20/2023 Discontinued Comment on above: Take 1 capsule by mo [facility]. 2 ml dupilumab 150 mg/ml auto-injector (4 sources) Interleukin-4 Receptor alpha Antagonist Start: 12-20-2024 dupilumab (Dupix ent) 200 MG/1.14ML injection Inject under the skin Active dupilumab (DUPIXENT SYRINGE) 100 mg/0.67 mL injection (2 sources) dupilumab (DUPIXENT SYRINGE) 100 mg/0.67 mL injection Active [id number] 0.3 ml EPINEPHrine 1 mg/ml auto-injector (20 sources) alpha-Adrenergic Agonist, beta-Adrenergic Agonist, Catecholamine Start: 4 EPIPEN 2-PANCHITO 0.3 mg/0.3 mL (1:1,000) atIn 01/06/2014 Active Epipen 2-Panchito 0.3 Mg/0.3 Ml Injection, Auto-Injector (6 sources) Start: 6 EPIPEN 2-PANCHITO 0.3 mg/0.3 mL AtIn USE ONLY DIRECTED FOR ALLERGIC REACTION, CALL 911 AND GO TO E.R. 1 06/21/2016 Active famotidine 20 mg oral tablet (20 sources) Histamine-2 Receptor Antagonist Start: 2 End: 3 take 1 tablet by mouth in the morning famotidine (Pepcid) 20 MG tablet Take 20 mg by mouth in the morning and 20 mg in the evening. 05/11/2022 Active Start: 10-13-2021 End: 01-12-2022 take 1 tablet by mouth at bedtime faMOTIdine 20 MG tablet Take 20 mg by mouth at bedtime. 0 10/13/2021 01/12/2022 Discontinued (Patient Preference) fexofenadine hydrochloride 60 mg oral tablet (20 sources) Histamine-1 Receptor Antagonist fexofenadine ([place]) 60 MG tablet every 12 (twelve) hours Active Flonase 0.05 mg/inh nasal spray (20 sources) Start: 07-29-19 16 Flonase 0.05 mg/inh nasal spray 2 spray(s), Nasal, Daily, Refill(s) 0, Allergy symptoms Start Date: 07/29/15 Status: Ordered fluconazole 150 mg oral tablet (10 sources) Azole Antifungal Start: 05-11-20 take 1 tablet by mouth once daily fluconazole (Diflucan) 150 MG tablet Indications: Impetigo 1 p.o. every day x 3 days 3 tablet 05/11/2024 Active fluorouracil 50 mg/ml topical cream (10 sources) Nucleoside Metabolic Inhibitor Start: 05-11-20 24 fluorouracil (Efudex) 5 % cream Indications: Actinic keratosis Apply to directed areas on the chest twice a day x 14 days. Dispense 30 day supply but only use for 14 days. 40 g 05/11/2024 Active fluticasone propionate 0.05 mg/actuat metered dose nasal spray (20 sources) Corticosteroid Start: 11-25-19 25 take 2 spray(s) nasal route in the morning fluticasone (Flonase) 50 MCG/ACT nasal spray Indications: Seasonal allergic rhinitis due to pollen SPRAY 2 SPRAYS INTO EACH NOSTRIL IN THE MORNING 16 mL 11 11/24/2024 Active Start: 11-13-2023 End: 11-24-2024 take 2 spray(s) nasal route in the morning fluticasone (Flonase) 50 MCG/ACT nasal spray Indications: Seasonal allergic rhinitis due to pollen Administer 2 sprays into each nostril in the morning. 16 g 11 11/13/2023 11/24/2024 Discontinued Start: 11-07-2023 Start: 07-29-2015 Flonase 0.05 m g/inh nasal spray 2 spray(s), Nasal, Daily, Refill(s) 0, Allergy symptoms Start Date: 07/29/15 Status: Ordered Start: 04-18-2011 take 1 spray(s) nasa l route once daily at bedtime fluticasone (FLONASE) 50 mcg/actuation nasal spray 1 [place] daily at bedtime. in each nostril. 0 [...] morning . Active Comment on above: 1 [place] daily at bed time. in each nostril. 60 actuat fluticasone propio jami 0.25 mg/actuat / salmeterol 0.05 mg/actuat dry powder inhaler (20 sources) Corticosteroid, beta2-Adrenergic Agonist Start: 12-20-2024 Start: 10-27-2024 take 1 puff(s) by mo [facility] twice daily fluticasone-salmeterol (ADVAIR) 500-50 mcg/dose dsdv INHALE 1 PUFF BY MOUTH TWICE A DAY *RINSE MOUTH AFTER USE* 10/27/2024 Active Start: 08-31-2024 take 1 puff(s) by in halation in the morning Fluticasone-Salmeterol (Wixela Inhub) 250-50 MCG/ACT aerosol powder Indications: Severe persistent asthma with (acute) exacerbation (HCC) Inhale 1 puff in the morning and 1 puff before bedtime. 1 each 11 08/31/2024 Active Start: 01-07-2024 Wixela Inhub 2 50 mcg-50 mcg inhalation powder See Instructions, 60 EA, Refill(s) 1, INHALE 1 PUFF BY MOUTH TWICE DAILY IN THE MORNING AND AT NIGHT, [id number], 149, cm, 01/04/24 16:18:00 EDT, Height/Length Dosing, 90.2, kg, 01/04/24 16:18:00 EDT, Weight Dosing Start Date: 01/07/24 Status: Ordered Start: 11-27-2023 End: 08-31-2024 take 1 puff(s) by inhalation twice daily Fluticasone-Salmeterol (Advair Diskus) 500-50 MCG/ACT aerosol powder 1 puff(s), Inhalation, BID for 30 day(s), 60 EA, Refill(s) 0 11/27/2023 08/31/2024 Discontinued Start: 11-07-2023 Start: 11-07-2023 Fluticasone Pr opion-Salmeterol (Advair Diskus) 500-50 mcg/dose blister with device Active 1 INH INHALATION Every 12 hours November 07, 2023 12:00am Start: 10-01-2022 take 1 puff(s) by in halation in the morning Advair Diskus 250 mcg-50 mcg inhalation powder See Instructions, 60 blister(s), Refill(s) 1, one puff inhales in the morning and night, [facility]/pharmacy #[id number], 143.2, cm, 10/01/22 7:16:00 EDT, Height/Length Dosing, 86.8, kg, 10/01/22 7:16:00 EDT, Weight Dosing Start Date: 10/01/22 Status: Ordered Start: 01-23-2022 End: 01-24-2022 take 2 puff(s) by inhalation twice daily 2 puff, Inhalation, 2 TIMES DAILY, First dose on Sat01/23/22 at 1745, Until Discontinued Start: 12-21-2021 End: 08-31-2024 take 1 puff(s) by inhalation twice daily Wixela Inhub 250-50 MCG/ACT Aerosol Powder, breath activated inhaler INHALE 1 PUFF INTO LUNGS TWICE DAILY. USE REGULARLY FOR BENEFIT. RINSE MOUTH AFTER USE 0 12/21/2021 Active Start: 01-05-2004 End: 02-15-2025 ADVAIR 250/50 DISKUS Inhale 1 Puff as instructed two times a day. Advair diskus 500/50 0 01/05/2004 02/15/2025 Discontinued (Changing Therapy/Dosage Form) take 1 puff(s) by in halation every twelve hours Advair Diskus 500-50 MCG/DOSE 1 puff Inhalation every 12 hrs Active fluticasone-salm eterol (ADVAIR DISKUS) 250-50 mcg/dose diskus inhaler Inhale 1 puff 2 (two) times a day Active Comment on above: one puff bid furosemide 20 mg oral tablet (20 sources) Loop Diuretic Start: 01-13-2024 take 1 tablet by mouth once daily furosemide (LASIX) 20 mg tablet Take 20 mg by mouth once daily. 01/13/2024 Active Gentamicin (3 sources) Start: 05-18-2024 gentamicin See Instructions, 300 mg/300ml NaCl IV q 24 hr x 14 days (end date 05/30), Refills(s) 0 Start Date: 05/18/24 Status: Ordered End: 05-18-2024 gentamicin 20 mg/2 mL soln 3 00 mL once daily. 05/18/2024 Discontinued guaiFENesin 600 mg oral tablet (15 sources) Start: 01-27-2024 take 600 mg by mouth once daily Mucinex 600 mg, Oral, Daily, Refills(s) 0 Start Date: 01/27/24 Status: Ordered Start: 01-07-2024 take 2 tablets by [facility] twice daily Mucinex 600 mg Tab-ER 1,200 mg = 2 tab(s), Oral, BID, # 12 tab(s), Refills(s) 0, Pharmacy: [facility]/pharmacy #[id number], 149, cm, 01/04/24 16:18:00 EDT, Height/Length Dosing, 90.2, kg, 01/04/24 16:18:00 EDT, Weight Dosing Start Date: 01/07/24 Status: Ordered HERBAL PRODUCT (5 sources) HERBAL PRODUCT daily. Nerve 911 0 Active homatropine methylbromide 0.3 mg/ml / HYDROcodone bitartrate 1 mg/ml oral solution (6 sources) Opioid Agonist, Cholinergic Muscarinic Agonist Start: 12-29-19 take 5 mL by mouth every four hours for cough homatropine-hydroco done 1.5 mg-5 mg/5 mL oral syrup 5 mL, Oral, q4hr for cough, 60 mL, Refill(s) 0, [facility]/pharmacy #[id number], 144, cm, 12/29/23 20:32:00 EDT, Height/Length Dosing, 92.3, kg, 12/29/23 20:32:00 EDT, Weight Dosing Start Date: 12/29/23 Status: Ordered L.ACID/L.CASEI/B.BIF/B .LEONARDO/FOS (PROBIOTIC BLEND ORAL) (6 sources) L.ACID/L.CASEI/B .BI F/B.LEONARDO/FOS (PROBIOTIC BLEND ORAL) Take by mouth every morning. Active L.acidophilus-L.rhamno nila (PROBIOTIC) 15 billion cell capsule (20 sources) take 1 capsule by mouth once daily L.acidophilus-L.rha mnosus (PROBIOTIC) 15 billion cell capsule Take 1 capsule by mouth once daily. Align Active lactobacillus acidophilus 16 mg oral capsule (13 sources) take 1 capsule by mouth in the morning Probiotic, Lactobacillus, capsule Take 1 capsule by mouth in the morning. Active leflunomide 20 mg oral tablet (8 sources) Antirheumatic Agent Start: 09-15-19 take 1 tablet by mouth once daily leflunomide 20 mg Tab 20 mg = 1 tab(s), Oral, Daily, Refills(s) 0, Arthritis Start Date: 09/14/21 Status: Ordered levoFLOXacin 750 mg oral tablet (8 sources) Quinolone Antimicrobial Start: 01-24-20 End: 01-31-20 take 1 tablet by mouth every twenty-four hours Levaquin 750 mg Tab 750 mg = 1 tab(s), Oral, q24hr, X 7 day(s), # 7 tab(s), Refills(s) 0, Pharmacy: [facility]/pharmacy #[id number], 149, cm, 01/20/24 22:07:00 EDT, Height/Length Dosing, 89.5, kg, 01/20/24 22:07:00 EDT, Weight Dosing Start Date: 01/24/24 Stop Date: 01/31/24 Status: Ordered Start: 12-31-2023 Levaquin q24hr , Refills(s) 0 Start Date: 12/31/23 Status: Ordered Start: 12-29-2023 End: 01-05-2024 take 1 tablet by mouth every twenty-four hours levofloxacin 750 mg Tab 750 mg = 1 tab(s), Oral, q24hr, X 7 day(s), # 7 tab(s), Refills(s) 0, Pharmacy: [facility]/pharmacy #[id number], 144, cm, 12/29/23 20:32:00 EDT, Height/Length Dosing, 92.3, kg, 12/29/23 20:32:00 EDT, Weight Dosing Start Date: 12/29/23 Stop Date: 01/05/24 Status: Ordered Start: 04-23-2023 take 1 tablet by hermelinda th once daily levoFLOXacin (Levaquin) 750 MG tablet TAKE 1 TABLET BY MOUTH EVERY DAY FOR 7 DAYS 0 04/23/2023 Active liothyronine sodium 0.005 mg oral tablet (3 sources) l-Triiodothyronine Start: 12-08-2024 Start: 12-08-2024 Liothyronine 5 mcg tablet Active MCG PO December 08, 2024 12:00am metFORMIN hydrochloride 500 mg oral tablet (6 sources) Biguanide take 1 tablet by mouth once daily in the morning metFORMIN (GLUCOPHAGE) 500 MG tablet Take 500 mg by mouth every morning. Active methylPREDNISolone 4 mg oral tablet (2 sources) Corticosteroid Start: methylPREDNISolone 4 MG as directed Orally for daily dose take half with breakfast, half with dinner for 6 days Aug, Active methylPREDNISolone 4 mg tab dosepak (2 sources) Start: 024 take 1 tablet by mouth once methylPREDNISolone 4 mg tab dosepak = 1 packet(s), Oral, Once, as directed on package labeling, # 21 tab(s), Refills(s) 0, Pharmacy: [facility]/pharmacy #[id number], 143.2, cm, 09/18/23 17:04:00 EDT, Height/Length Dosing, 88.2, kg, 09/18/23 17:04:00 EDT, Weight Dosing Start Date: 09/27/23 Status: Ordered Start: 06-28-2023 take 1 tablet by mouth once me thylPREDNISolone 4 mg tab dosepak = 1 packet(s), Oral, Once, as directed on package labeling, # 21 tab(s), Refills(s) 0, Pharmacy: [facility]/pharmacy #[id number], 143.2, cm, 06/28/23 10:53:00 EST, Height/Length Dosing, 98, kg, 06/28/23 10:53:00 EST, Weight Dosing Start Date: 06/28/23 Status: Ordered 24 hr metoprolol succinate 25 mg extended release oral tablet (20 sources) beta-Adrenergic Greg Start: 12-15-2024 take 1 tablet by mouth once daily metoprolol succinate ER (TOPROL XL) 25 mg 24 hr tablet TAKE 1 TABLET BY MOUTH EVERY DAY IN ADDITION TO 50MG DOSE, FOR TOTAL DOSE OF 75MG DAILY 12/15/2024 Active Start: 12-08-2024 take 1 tablet by hermelinda th every twenty-four hours Start: 03-23-2024 take 1 tablet by mouth once da riki Start: 02-21-2024 take 1 tablet by mouth once da riki metoprolol succinate 25 mg ER Tab 25 mg = 1 tab(s), Oral, Daily, # 30 tab(s), Refills(s) 2, Pharmacy: [facility]/pharmacy #[id number], 149, cm, 02/06/24 15:32:00 EDT, Height/Length Dosing, 86.2, kg, 02/06/24 15:38:00 EDT, Weight Dosing Start Date: 02/21/24 Status: Ordered End: 02-15-2025 take 50 mg by mouth once daily metoprolol succinate ER (TOPROL XL) 100 mg Take 50 mg by mouth once daily. 02/15/2025 Discontinued (Changing Therapy/Dosage Form) End: 05-04-2024 take 1 tablet by mouth every twenty-four hours metoprolol succinate XL (Toprol-XL) 100 MG 24 hr tablet Take by mouth Do not crush or chew. 05/04/2024 Discontinued (Med list cleanup) metroNIDAZOLE 250 mg oral tablet (2 sources) Nitroimidazole Antimicrobial Start: 01-11-2024 End: 01-18-2024 take 1 tablet by mouth three times daily MetroNIDAZOLE 250 mg Tab 250 mg = 1 tab(s), Oral, TID, X 7 day(s), # 21 tab(s), Refills(s) 0, Pharmacy: [facility]/pharmacy #[id number], 149, cm, 01/08/24 7:53:00 EDT, Height/Length Dosing, 88.9, kg, 01/08/24 7:53:00 EDT, Weight Dosing Start Date: 01/11/24 Stop Date: 01/18/24 Status: Ordered Start: 10-09-2021 End: 10-16-2021 take 1 tablet by mouth three times daily Flagyl 250 mg Tab 250 mg = 1 tab(s), Oral, TID, X 7 day(s), # 21 tab(s), Refills(s) 0, Pharmacy: [facility]/pharmacy #[id number], 145.4, cm, 10/04/21 15:27:00 EDT, Height/Length Dosing, 82, kg, 10/04/21 15:27:00 EDT, Weight Dosing Start Date: 10/09/21 Stop Date: 10/16/21 Status: Ordered montelukast 10 mg oral tablet (20 sources) Leukotriene Receptor Antagonist Start: 11-07-2023 take 1 tablet by mouth once daily Start: 10-08-2022 take 1 tablet by hermelinda th twice daily montelukast 10 mg Tab See Instructions, TAKE 1 TABLET BY MOUTH TWICE A DAY, # 180 tab(s), Refills(s) 1, Pharmacy: [id number], 149, cm, 01/04/24 16:18:00 EDT, Height/Length Dosing, 90.2, kg, 01/04/24 16:18:00 EDT, Weight Dosing Start Date: 01/07/24 Status: Ordered Start: 01-24-2022 End: 01-24-2022 take 10 mg by mouth once daily 10 mg, Oral, DAILY, Fir st dose on Sat01/24/22 at 0900, Until Discontinued montelukast sodi um (SINGULAIR ORAL) Take by mouth. Active montelukast sodi um (SINGULAIR ORAL) Take by mouth. 0 Active Montelukast Sodi um Active Multiple Vitamin (Multi-Vitamin) tablet (20 sources) take 1 tablet by hermelinda th in the morning Multiple Vitamin (Multi-Vitamin) tablet Take 1 tablet by mouth in the morning. Active take 1 tablet by mouth in the mo rning Multiple Vitamin (Multi-Vitamin) tablet Take 1 tablet [...] tablet by mouth every morning . Active mupirocin 0.02 mg/mg topical ointment (1 source) RNA Synthetase Inhibitor Antibacterial Start: 12-26-19 End: 12-31-19 mupirocin (BACTROBAN) 2 % ointment Indications: Pre-op examination two times a day for 5 days. Apply 0.5 inch with cotton swab (Q-tip) to each nostril in the morning and evening for 5 days prior to and including day of surgery. 22 g 0 12/26/2023 12/31/2023 Active nystatin [id number] unt/ml oral suspension (1 source) Polyene Antifungal Start: 08-09-19 End: 02-16-20 25 take [id number] [IU] by mouth every six hours nystatin 100,000 units/mL Oral Susp 600,000 unit(s) = 6 mL, Oral, q6hr, retain in mouth as long as possible before swallowing, X 7 day(s), # 168 mL, Refills(s) 0, Pharmacy: [facility]/pharmacy #[id number], 142, cm, 08/09/24 11:57:00 EST, Height/Length Dosing, 80.4, kg, 08/09/24 11:57:00 EST, Weight Dosing Start Date: 08/09/24 Stop Date: 08/16/24 Status: Ordered omeprazole 40 mg delayed release oral capsule (20 sources) Proton Pump Inhibitor Start: 09-15-19 take 1 capsule by mouth once daily in the morning omeprazole [address] capsule TAKE 1 CAPSULE BY MOUTH EVERY MORNING *CALL OFFICE TO SCHEDULE FOLLOW UP* 0 12/07/2021 Active take 1 capsule by mo [facility] once daily in the morning omeprazole (PRILOSEC) 40 MG capsule Take 40 mg by mouth every morning. Active omeprazole 40 mg Cap-DR (4 sources) Start: 09-14-2021 take 1 capsule by mouth once daily omeprazole 40 mg Cap-DR 40 mg = 1 cap(s), Oral, Daily, Refills(s) 0 Start Date: 09/14/21 Status: Ordered ondansetron 4 mg oral tablet (20 sources) Serotonin-3 Receptor Antagonist Start: 04-14-2024 End: 12-08-2024 take 1 tablet by mouth every eight hours as needed ondansetron (ZOFRAN) 4 mg tablet Take 1 tablet by mouth every 8 hours as needed for nausea/vomiting. 10 tablet 1 04/14/2024 Active Start: 10-01-2023 End: 08-11-2024 take 1 tablet by mouth every eight hours as needed for nausea and nausea ondansetron orally disintegrating (ZOFRAN ODT) 4 mg disintegrating tablet Indications: Nausea Take 1 tablet by mouth every 8 hours as needed. 90 tablet 1 10/01/2023 Active Start: 11-28-2022 [facility] six hours as needed for nausea ondansetron 4 mg Tab 4 mg = 1 tab(s), Oral, As Directed, PRN Nausea/Vomiting, every 6 hours as needed for nausea, # 15 tab(s), Refills(s) 0, [id number] 149, cm, 02/06/24 15:32:00 EDT, Height/Length Dosing, 86.2, kg, 02/06/24 15:38:00 EDT, Weight Dosing Start Date: 02/17/24 Status: Ordered Start: 01-23-2022 End: 01-24-2022 take [...] q8hr, # 20 tab(s), Refills(s) 3, [id number] Start Date: 10/26/19 Status: Ordered Start: 05-16-2017 take 1 tablet by hermelinda th every six hours ondansetron (ZOFRAN, HYDROCHLORIDE,) 4 MG tablet Take 1 (one) tablet (4 mg total) by mouth every 6 (six) hours as needed for nausea. 30 tablet 1 05/16/2017 Active Comment on above: Take 1 tablet by hermelinda th every 8 hours as needed. oseltamivir 75 mg oral capsule (1 source) Neuraminidase Inhibitor Start: 5 End: 5 take 1 capsule by mouth twice daily Tamiflu 75 mg Cap 75 mg = 1 cap(s), Oral, BID, X 5 day(s), # 10 cap(s), Refills(s) 0, Pharmacy: [facility]/pharmacy #[id number], 142, cm, 08/09/24 11:57:00 EST, Height/Length Dosing, 80.4, kg, 08/09/24 11:57:00 EST, Weight Dosing Start Date: 08/09/24 Stop Date: 08/14/24 Status: Ordered oxyCODONE hydrochloride 5 mg oral tablet (10 sources) Opioid Agonist Start: End: take 1 tablet by mouth every eight hours as needed oxyCODONE IR (ROXICODONE) 5 mg immediate release tablet Indications: Post-op pain control Take 1 tablet by mouth every 8 hours as needed for pain for up to 7 days. 21 tablet 04/22/2024 04/29/2024 Active Start: 04-14-2024 End: 04-21-2024 take 1 tablet by mouth every six hours as needed for pain oxyCODONE IR (ROXICODONE) 5 mg immediate release tablet Indications: Post-operative pain Take 1 tablet by mouth every 6 hours as needed for pain for up to 7 days. 28 tablet 04/14/2024 04/21/2024 Active Start: 02-22-2022 take 1 tablet by hermelinda th every twelve hours as needed for pain [...] t 5 mg Ozempic (1 mg dose) (20 sources) Start: 10-13-2021 inject 2 mg by subcutaneous injection every week Ozempic (1 mg dose) See Instructions, 2 mg SubCutaneous qWeek, ordered by another provider, Refills(s) 0, Blood glucose Start Date: 10/13/21 [...] SUBCUTANEOUSLY ONCE WEEKLY 0 12/25/2021 Active Ozempic, 2 MG/DOSE, 8 MG/3ML solution pen-injector (20 sources) Start: 10-15-2023 inject 2 mg by subcutaneous injection every week Ozempic, 2 MG/DOSE, 8 MG/3ML solution pen-injector INJECT 2MG SUBCUTANEOUSLY ONCE A WEEK 10/15/2023 Active pantoprazole 40 mg delayed release oral tablet (20 sources) Proton Pump Inhibitor Start: 12-05-2022 End: 07-25-2025 take 1 tablet by mouth once daily pantoprazole DR (PROTONIX) 40 mg tablet Take 40 mg by mouth once daily. 10/18/2023 Active Start: 01-24-2022 End: 01-24-2022 take 40 mg by mouth once daily 40 mg, Oral, DAILY, Fir st dose on Sat01/24/22 at 0900, Until Discontinued, Indications: Continuation of Home Therapy, Inpt Stress Ulcer Prophylaxis microencapsulated potassium chloride 20 meq extended release oral tablet (20 sources) Start: 01-13-2024 take 1 tablet by mouth twice daily potassium chloride ER (KLOR-CON) 20 mEq tablet Take 20 mEq by mouth two times a day. 01/13/2024 Active Start: 01-13-2024 take 1 tablet by hermelinda th twice daily Potassium Chloride (Bqg-Vcsa-Llc M20) 20 mEq oral tablet, extended release 20 mEq = 1 tab(s), Oral, BID, # 60 tab(s), Refills(s) 0, Pharmacy: [facility]/pharmacy #[id number], 149, cm, 01/08/24 7:53:00 EDT, Height/Length Dosing, 88.9, kg, 01/08/24 7:53:00 EDT, Weight Dosing Start Date: 01/13/24 Status: Ordered predniSONE 20 mg oral tablet (20 sources) Start: 08-23-2024 End: 08-28-2024 take 2 tablets by mouth once daily predniSONE 20 mg Tab 40 mg = 2 tab(s), Oral, Daily, X 5 day(s), # 10 tab(s), Refills(s) 0, Pharmacy: [facility]/pharmacy #[id number], 142, cm, 08/23/24 14:39:00 EST, Height/Length Dosing, 79.9, kg, 08/23/24 14:39:00 EST, Weight Dosing Start Date: 08/23/24 Stop Date: 08/28/24 Status: Ordered Start: 03-13-2024 End: 03-25-2024 take 3 tablets by mouth once daily, then take 2 tablets by mouth once daily, then take 1 tablet by mouth once daily at mealtime predniSONE (Deltasone) 20 MG tablet Indications: Chronic pain of right knee Take 3 tablets (60 mg) by mouth Daily for 4 days, THEN 2 tablets (40 mg) Daily for 4 days, THEN 1 tablet (20 mg) Daily for 4 days. Take with food. 24 tablet 03/13/2024 03/25/2024 Active Start: 01-07-2024 predniSONE 20 mg Tab 20 mg = 1 tab(s), Oral, As Directed, Take two tabs for 4 days, then one and half tabs for 4 days, then one tab for 4 days then half tab for 4 days then stop, # 20 tab(s), Refills(s) 0, Pharmacy: [facility]/pharmacy #[id number], 149, cm, 01/04/24 16:18:00 EDT, Height/Length Dosing, 90.2, kg, 01/04/24 16:18:00 EDT, Weight Dosing Start Date: 01/07/24 Status: Ordered Start: 12-29-2023 predniSONE 20 mg Tab See Instructions, Take 3 tabs for 3 days, then 2 tabs for 3 days, then 1 tab for 3 days., # 18 tab(s), Refills(s) 0, Pharmacy: [facility]/pharmacy #[id number], 144, cm, 12/29/23 20:32:00 EDT, Height/Length Dosing, 92.3, kg, 12/29/23 20:32:00 EDT, Weight Dosing Start Date: 12/29/23 Status: Ordered Start: 12-27-2023 End: 01-01-2024 take 2 tablets by mouth once daily predniSONE 20 mg Tab 40 mg = 2 tab(s), Oral, Daily, X 5 day(s), # 10 tab(s), Refills(s) 0, Pharmacy: [facility]/pharmacy #[id number], 143, cm, 12/27/23 15:07:00 EDT, Height/Length Dosing, 89, kg, 12/27/23 15:07:00 EDT, Weight Dosing Start Date: 12/27/23 Stop Date: 01/01/24 Status: Ordered Start: 09-14-2023 predniSONE 20 mg Tab See Instructions, TAKE 3 TABS DAILY X2 DAYS, THEN 2 TABS DAILY X3 DAYS, 1 TAB DAILY X3 DAYS, 1/2 TAB X 2 DAYS, # 16 tab(s), Refills(s) 1, Pharmacy: [facility]/pharmacy #[id number], 143.2, cm, 09/18/23 17:04:00 EDT, Height/Length Dosing, 88.2, kg, 09/18/23 17:04:00 EDT, Weight Dosing Start Date: 09/20/23 Status: Ordered Start: 09-07-2022 End: 09-12-2022 take 1 tablet by mouth once daily predniSONE 50 mg Tab 50 mg = 1 tab(s), Oral, Daily, X 5 day(s), # 5 tab(s), Refills(s) 0, Pharmacy: [facility]/pharmacy #[id number], 150, cm, 09/06/22 23:56:00 EST, [...] Refills(s) 0 Start Date: 04/24/21 Status: Ordered RSVPreF3 Vac Recomb Adjuvanted (Arexvy) 120 MCG/0.5ML reconstituted suspension (20 sources) Start: 06-04-2023 RSVPreF3 Vac R ecomb Adjuvanted (Arexvy) 120 MCG/0.5ML reconstituted suspension as directed Intramuscular once for 1 06/04/2023 Active Semaglutide (8 sources) Start: 12-09-2024 inject 2 mg by subcutaneous injection every week Start: 06-01-2024 End: 12-09-2024 inject 2 mg by subcutaneous injection every week Semaglutide (Ozempic) 2 mg/dose (8 mg/3 mL) pen injector Discontinued 0 .ROUTE .COMPLEX June 01, 2024 10:34am December 09, 2024 11:34am INJECT 2MG SUBCUTANEOUSLY ONCE A WEEK Start: 05-22-2024 End: 06-01-2024 inject 2 mg by subcutaneous injection every week Semaglutide (Ozempic) 2 mg/dose (8 mg/3 mL) pen injector Discontinued 0 .ROUTE .COMPLEX May 22, 2024 8:40am June 01, 2024 10:34am INJECT 2MG SUBCUTANEOUSLY ONCE A WEEK Start: 11-07-2023 End: 05-22-2024 inject 2 mg by subcutaneous injection every week Semaglutide (Ozempic) 2 mg/dose (8 mg/3 mL) pen injector Discontinued 2 MG SUBCUT Once a week November 07, 2023 12:00am May 22, 2024 8:40am Semaglutide (Ozempic) 2 mg/dose (8 mg/3 mL) pen injector (16 sources) Start: 06-01-2024 inject 2 mg by subcutaneous injection every week Semaglutide (Ozempic) 2 mg/dose (8 mg/3 mL) pen injector Active 0 .ROUTE .COMPLEX June 01, 2024 10:34am INJECT 2MG SUBCUTANEOUSLY ONCE A WEEK Start: 05-22-2024 End: 06-01-2024 inject 2 mg by subcutaneous injection every week Semaglutide (Ozempic) 2 mg/dose (8 mg/3 mL) pen injector Discontinued 0 .ROUTE .COMPLEX May 22, 2024 8:40am June 01, 2024 10:34am INJECT 2MG SUBCUTANEOUSLY ONCE A WEEK Start: 11-07-2023 End: 05-22-2024 inject 2 mg by subcutaneous injection every week Semaglutide (Ozempic) 2 mg/dose (8 mg/3 mL) pen injector Discontinued 2 MG SUBCUT Once a week November 07, 2023 12:00am May 22, 2024 8:40am Start: 11-07-2023 inject 2 mg by subcu taneous injection every week Semaglutide (Ozempic) 2 mg/dose (8 mg/3 mL) pen injector Active 2 MG SUBCUT Once a week November 07, 2023 12:00am semaglutide (OZEMPIC) 2 mg/dose (8 mg/3 mL) pen injector (20 sources) Start: 12-20-2023 inject 2 mg by subcutaneous injection every week semaglutide (OZEMPIC) 2 mg/dose (8 mg/3 mL) pen injector Inject 2 mg subcutaneously one time a week. 12/20/2023 Active Start: 12-20-2023 inject 2 mg by subcu taneous injection every week semaglutide (OZEMPIC) 2 mg/dose (8 mg/3 mL) pen injector Inject 2 mg subcutaneously one time a week. 0 12/20/2023 Active Spiriva HandiHaler (5 sources) Spiriva HandiHal er Active sucralfate 1000 mg oral tablet (3 sources) Aluminum Complex Start: End: take 1 tablet by mouth once daily sucralfate tab 1 gm = 1 tab(s), Oral, Daily, X 30 day(s), # 30 tab(s), Refills(s) 0, Pharmacy: [facility]/pharmacy #[id number], 149, cm, 09/14/21 15:32:00 EDT, Height/Length Dosing, 81.3, kg, 09/14/21 15:32:00 EDT, Weight Dosing Start Date: 09/14/21 Stop Date: 10/14/21 Status: Ordered sulfamethoxazole 800 mg / trimethoprim 160 mg oral tablet (1 source) Dihydrofolate Reductase Inhibitor Antibacterial, Sulfonamide Antimicrobial Start: 021 take 1 tablet by mouth every twelve hours Bactrim DS 800-160 MG 1 tablet Orally Twice a day for 5 days Mar, Active levothyroxine sodium 0.137 mg oral tablet (20 sources) l-Thyroxine Start: 024 take 1 tablet by mouth once daily levothyroxine 137 mcg (0.137 mg) Tab See Instructions, TAKE 1 TABLET BY MOUTH EVERY DAY, # 90 tab(s), Refills(s) 4, Pharmacy: [facility]/pharmacy #[id number], 143, cm, 11/05/23 17:16:00 EDT, Height/Length Dosing, 88.8, kg, 11/05/23 17:16:00 EDT, Weight Dosing Start Date: 11/11/23 Status: Ordered Start: 11-07-2023 End: 06-01-2024 take 1 tablet by mouth once daily in the morning Levothyroxine 25 mcg tablet Discontinued 25 MCG PO Every morning November 07, 2023 12:00am June 01, 2024 10:05am Start: 08-07-2023 take 1 tablet by hermelinda th once daily levothyroxine 137 mcg (0.137 mg) Tab See Instructions, TAKE 1 TABLET BY MOUTH EVERY DAY, # 90 tab(s), Refills(s) 0, Pharmacy: [facility] ST[id number], 143.2, cm, 08/02/23 14:19:00 EST, Height/Length Dosing, 88.3, kg, 08/02/23 14:19:00 EST, Weight Dosing Start Date: 08/07/23 Status: Ordered Start: 03-26-2023 take 1 tablet by hermelinda th once daily levothyroxine 137 mcg (0.137 mg) Tab See Instructions, TAKE 1 TABLET BY MOUTH EVERY DAY, # 90 tab(s), Refills(s) 0, Pharmacy: [facility] STORE [id number], 143.2, cm, 12/05/22 15:37:00 EDT, Height/Length Dosing, 85.3, kg, 12/05/22 15:37:00 EDT, Weight Dosing Start Date: 03/26/23 Status: Ordered Start: 11-14-2022 take 1 tablet by hermelinda th once daily levothyroxine 137 mcg (0.137 mg) Tab 137 mcg = 1 tab(s), Oral, Daily, # 90 tab(s), Refills(s) 0, Pharmacy: [facility]/pharmacy #[id number], 143.2, cm, 10/01/22 7:16:00 EDT, [...] 1 tablet by hermelinda th once daily Start: 04-19-2016 End: 02-15-2025 levothyroxine (SYNTHROID) 75 mcg tablet TAKE 1.5 TABLETS ON SATURDAY, SATURDAY, SATURDAY, SATURDAY AND 2 TABLETS THE OTHER 3 DAYS 155 tablet 3 04/19/2016 02/15/2025 Discontinued (Changing Therapy/Dosage Form) Start: 08-11-2015 End: 03-20-2016 levothyroxine (SYNTHROID) 75 [...] AND 2 TABLETS THE OTHER 3 DAYS tiotropium 0.018 mg inhalation powder (20 sources) Anticholinergic Start: 11-07-2023 take 1 capsule by inhalation once daily Start: 09-14-2023 Spiriva Respim at 1.25 mcg/inh inhalation aerosol 2 inh, Inhalation, Daily, Refill(s) 0 Start Date: 09/14/23 Status: Ordered Start: 09-14-2023 Spiriva Respim at 1.25 mcg/inh inhalation aerosol Refill(s) 0 Start Date: 09/14/23 Status: Ordered Start: 10-03-2022 End: 08-31-2024 tiotropium (Spiriva Respimat ) 1.25 MCG/ACT inhaler Indications: Severe persistent asthma with (acute) exacerbation (HCC) Inhale 2 puffs 1 (one) time each day at the same time 1 each 08/31/2024 Active take 1 puff(s) by in halation once daily tiotropium bromide (SPIRIVA WITH HANDIHALER INHALATION) Inhale 1 Puff as instructed once daily. Active tiotropium bromi de (SPIRIVA WITH HANDIHALER INHALATION) Inhale as instructed. Active tiotropium bromi de (SPIRIVA WITH HANDIHALER INHALATION) Inhale as instructed. 0 Active Tiotropium [place] (Spiriva With Handihaler) 18 mcg capsule, w/inhalation device (6 sources) Start: 11-07-2023 take 1 capsule by inhalation once daily Tiotropium [place] (Spiriva With Handihaler) 18 mcg capsule, w/inhalation device Active 1 CAP INHALATION Daily November 07, 2023 12:00am traMADol hydrochloride 50 mg oral tablet (10 sources) Opioid Agonist Start: 01-27-2024 take 1 tablet by mouth every twelve hours as needed for pain traMADOL 50 mg Tab 50 mg = 1 tab(s), Oral, q12hr, PRN for pain, # 30 tab(s), Refills(s) 0, Pharmacy: [facility]/pharmacy #[id number], 149, cm, 01/20/24 22:07:00 EDT, Height/Length Dosing, 89.5, kg, 01/20/24 22:07:00 EDT, Weight Dosing Start Date: 01/27/24 Status: Ordered Start: 01-24-2024 take 1 tablet by hermelinda th every six hours as needed for pain traMADOL 50 mg Tab 50 mg = 1 tab(s), Oral, q6hr, PRN Pain, # 12 tab(s), Refills(s) 0, Pharmacy: [facility]/pharmacy #[id number], 149, cm, 01/20/24 22:07:00 EDT, Height/Length Dosing, 89.5, kg, 01/20/24 22:07:00 EDT, Weight Dosing Start Date: 01/24/24 Status: Ordered triamcinolone acetonide 0.001 mg/mg topical ointment (7 sources) Corticosteroid Start: 12-11-2021 triamcinolone 0.1 % Ointment ointment APPLY TO AFFECTED AREAS OF RASH TWICE DAILY NEEDED FOR 30 DAYS 0 12/11/2021 Active 24 hr upadacitinib 15 mg extended release oral tablet (20 sources) Start: 12-05-2022 End: 12-16-2024 take 1 tablet by mouth once daily upadacitinib tablet ER 24 hr 15 mg (RINVOQ) Indications: Rheumatoid arthritis of multiple sites without rheumatoid factor (HCC) Take 1 tablet by mouth once daily. 30 tablet 3 12/16/2024 Active Start: 12-05-2022 upadacitinib E R (Rinvoq) 15 MG tablet sustained-release 24 hour Refills(s) 0 12/05/2022 Active Start: 04-24-2021 End: 07-19-2022 take 1 tablet by mouth once daily upadacitinib (RINVOQ) Tb24 tablet Indications: Rheumatoid arthritis of multiple sites without rheumatoid factor (HCC) Take 1 tablet (15 mg) by mouth once daily. Swallow whole; DO NOT crush, chew, or open. 30 tablet 11 07/19/2022 Active Start: 04-24-2021 take 1 mg by mouth o nce daily Rinvoq mg, Oral, Daily, Refills(s) 0, Arthritis Start Date: 04/24/21 Status: Ordered Start: 04-24-2021 take 1 mg by mouth o nce daily Rinvoq mg, Oral, Daily, Refills(s) 0 Start Date: 04/24/21 Status: Ordered Comment on above: Take 1tab by mouth. Hold if ill or on antibiotics. Swallow whole; DO NOT crush, chew, or open. On LIVE vaccines Take 1 tablet (15 mg ) by mouth once daily. Swallow whole; DO NOT crush, chew, or open. TAKE 1 TABLET BY HERMELINDA TH 1 TIME A DAY. Upadacitinib (RINVOQ PO) (7 sources) Start: 1 take 15 mg by mouth once daily Upadacitinib (RINVOQ PO) Take 15 mg by mouth daily. 0 04/24/2021 Active valACYclovir 1000 mg oral tablet (1 source) Herpesvirus Nucleoside Analog DNA Polymerase Inhibitor, Herpes Simplex Virus Nucleoside Analog DNA Polymerase Inhibitor, Herpes Zoster Virus Nucleoside Analog DNA Polymerase Inhibitor Start: 4 End: 4 take 1 tablet by mouth every eight hours valacyclovir 1 g Tab 1 gm = 1 tab(s), Oral, q8hr, X 7 day(s), # 21 tab(s), Refills(s) 0, Pharmacy: [facility]/pharmacy #[id number], 149, cm, 01/27/24 15:18:00 EDT, Height/Length Dosing, 87.3, kg, 01/27/24 15:18:00 EDT, Weight Dosing Start Date: 01/27/24 Stop Date: 02/03/24 Status: Ordered Ventolin Hfa 90 McG/Actuation Aerosol Inhaler (6 [...] Drug Class(es) Dates Sig (Normalized) Sig (Original) azelastine hydrochloride 0.137 mg/actuat metered dose nasal spray (9 sources) Histamine-1 Receptor Antagonist Start: 12-13-2022 End: 11-13-2023 take 2 spray(s) nasal route in the morning azelastine (Astelin) 0.1 % nasal spray Administer 2 sprays into affected nostril(s) in the morning and 2 sprays in the evening. 12/13/2022 11/13/2023 Discontinued (Reorder) Start: 12-28-2021 take 2 spray(s) nasa l route twice daily Azelastine HCl 137 MCG/SPRAY Solution nasal spray USE 2 SPRAYS IN EACH NOSTRIL TWICE DAILY, NEED TO USE REGULARLY FOR BENEFIT 0 12/28/2021 Active azithromycin 250 mg oral tablet (5 sources) Macrolide Antimicrobial Start: 12-25-2023 End: 03-11-2024 azithromycin (Zithromax) 250 MG tablet Indications: Mild persistent asthma with exacerbation (CMS/HCC) , Acute cough Take 1 tablet (250 mg) by mouth Daily Take 2 tabs on day 1 and 1 tab on days 2-5 6 tablet 12/25/2023 03/11/2024 Discontinued (Therapy completed) Start: 09-14-2023 End: 09-19-2023 azithromycin 250 mg Tab = 1 packet(s), Oral, As Directed, as directed on package labeling, X 5 day(s), # 6 tab(s), Refills(s) 0, Pharmacy: [facility]/pharmacy #[id number], 143.2, cm, 09/14/23 9:51:00 EDT, Height/Length Dosing, 87.4, kg, 09/14/23 9:51:00 EDT, Weight Dosing Start Date: 09/14/23 Stop Date: 09/19/23 Status: Ordered Start: 04-05-2022 Azithromycin 2 50 MG as directed Orally for 5 days Mar, Active bisacodyl 10 mg rectal suppository (1 source) Stimulant Laxative Start: 01-23-2022 End: 01-24-2022 bisacodyl (DULCOLAX) suppository 10 mg 60 actuat budesonide 0.16 mg/actuat / formoterol fumarate 0.0045 mg/actuat metered dose inhaler (7 sources) Corticosteroid, beta2-Adrenergic Agonist Start: 09-05-2022 End: 03-13-2024 take 2 puff(s) by inhalation in the morning budesonide-formot ale (Symbicort) 160-4.5 MCG/ACT inhaler Inhale 2 puffs in the morning and 2 puffs before bedtime. 09/05/2022 03/13/2024 Discontinued calcium chloride 0.0014 meq/ml / potassium chloride 0.004 meq/ml / sodium chloride 0.103 meq/ml / sodium lactate 0.028 meq/ml injectable solution (1 source) Start: 05-16-2017 End: 05-16-2017 take 50 mL intravenous route every hour lactated Ringers infusion 50 mL/hr, Intravenous, Continuous, Starting Ramona 05/16/17 at 1145, Pre-Procedure New Bag 05/16/2017 11:30 EST 50 mL/hr 50 mL/hr ceFAZolin 2000 mg injection (1 source) Cephalosporin Antibacterial Start: 01-23-2022 End: 01-24-2022 take 2 g intravenously every eight hours ceFAZolin (ANCEF) 2 g in dextrose 100 mL premix IVPB clindamycin 300 mg oral capsule (5 sources) Lincosamide Antibacterial Start: 01-15-2023 End: 12-26-2023 take 2 capsules by mouth every hour clindamycin (Cleocin) 300 MG capsule TAKE 2 CAPSULES BY MOUTH 1 HOUR PRIOR TO DENTAL APPOINTMENT 01/15/2023 12/26/2023 Discontinued (Therapy completed) Start: 02-15-2022 End: 02-15-2023 clindamycin 150 MG capsule T rios 4 capsules 1 hour before the procedure 8 capsule 1 02/15/2022 02/15/2023 Active docusate sodium 50 mg / sennosides, halfway 8.6 mg oral tablet (1 source) Start: [...] skin daily. 12 mL 0 01/23/2022 Active ergocalciferol 1.25 mg oral capsule (20 sources) Provitamin D2 Compound Start: 05-09-2022 End: 03-30-2024 ergocalciferol 50,000 unit capsule (VITAMIN D2, DRISDOL) Indications: Vitamin D deficiency (take by mouth with food twice a week, ONE CAPSULE ON SATURDAY AND ONE ON SATURDAY) FOR A TOTAL OF 8 WEEKS. 16 capsule 05/09/2022 03/30/2024 Discontinued Start: 05-09-2022 take 1 capsule by mo uth at mealtime ergocalciferol (Vitamin D2) 1.25 MG (32015 UT) capsule TAKE 1 CAP BY MOUTH ON SATURDAY AND SATURDAY WITH FOOD FOR 8 WEEKS 0 05/09/2022 Active Comment on above: (take by mouth with food twice a week, ONE CAPSULE ON SATURDAY AND ONE ON SATURDAY) FOR A TOTAL OF 8 WEEKS. 1 ml HYDROmorphone hydrochloride 1 mg/ml cartridge (2 sources) Opioid Agonist Start: End: take 0.5 mg intravenously every four hours [...] total. Given 05/16/2017 14:09 EST 0.5 mg Insulin Lispro (2 sources) Insulin Analog Start: 01-06-2024 End: 01-06-2024 Insulin Lispro Sliding Scale 0-10 Unit(s), Injection-Insulin, SubCutaneous, Start date 01/06/24 11:30:00 AM EDT Start Date: 01/06/24 Stop Date: 01/06/24 Status: Completed Start: 01-06-2024 End: 01-06-2024 Insulin Lispro Sliding Scale 0-10 Unit(s), Injection-Insulin, SubCutaneous, Start date 01/06/24 7:30:00 AM EDT Start Date: 01/06/24 Stop Date: 01/06/24 Status: Completed insulin lispro (HumaLOG) injection (1 source) Start: 01-23-2022 End: 01-24-2022 insulin lispro (HumaLOG) injection lansoprazole 15 mg delayed release oral capsule (20 sources) Proton Pump Inhibitor Start: 11-07-2023 End: 06-01-2024 take 1 capsule by mouth once daily Lansoprazole (Prevacid 24hr) 15 mg capsule,delayed release(DR/EC) Discontinued 15 MG PO Daily November 07, 2023 12:00am June 01, 2024 10:06am Start: 01-09-2014 End: 02-15-2025 take 1 capsule by mouth once daily at bedtime LANSOPRAZOLE 30 mg capsule Take 1 capsule by mouth daily at bedtime. 01/09/2014 02/15/2025 Discontinued (Changing Therapy/Dosage Form) take 1 capsule by mo [facility] once daily Prevacid 15 MG 1 capsule before a meal Orally Once a day for 30 day(s) Active Comment on above: Take 1 capsule by mo [facility] daily at bedtime. loratadine 10 mg oral tablet (1 source) Start: 01-25-20 End: 01-25-20 take 20 mg by mouth once daily 20 mg, Oral, DAILY, First dose on Sat01/24/22 at 0900, Until Discontinued multivitamin tablet 1 tablet (1 source) Start: 01-24-20 End: 01-25-20 take 1 tablet by mouth once daily in the morning 1 tablet, Oral, DAILY EVERY MORNING, First dose on Sat01/23/22 at 1745, Until Discontinued oxymetazoline hydrochloride 0.5 mg/ml nasal spray (1 source) End: 05-13-20 take 2 spray(s) nasal route twice daily oxymetazoline (AFRIN) 0.05 % nasal spray Instill 2 sprays into each nostril 2 (two) times a day. 05/13/2017 Discontinued Ozempic, 1 MG/DOSE, 4 MG/3ML solution pen-injector (2 sources) End: 10-21-19 inject 1 mg by subcutaneous injection every week Ozempic, 1 MG/DOSE, 4 MG/3ML solution pen-injector INJECT 1MG SUBCUTANEOUSLY ONCE WEEKLY 84 DAYS 10/21/2023 Discontinued (Med list cleanup) inject 1 mg by subcu taneous injection every week Ozempic, 1 MG/DOSE, 4 MG/3ML solution pen-injector INJECT 1MG SUBCUTANEOUSLY ONCE WEEKLY 84 DAYS 0 Active rivaroxaban 10 mg oral tablet (11 sources) [...] patch 1 patch 1 patch, Transdermal, Once, [facility] 05/16/17 at 1300, For 1 dose, Pre-Procedure, [...] puff(s), Inhalation, BID, 1 EA, Refill(s) 2, [facility]/pharmacy #[id number], 144.8, cm, 09/05/22 15:24:00 EST, [...] (20 sources) Leukotriene Receptor Antagonist Start: 04-18-2011 End: 12-20-2023 take 1 tablet by mouth twice daily zafirlukast (ACCOLATE) 20 mg tablet Take 1 tablet by mouth twice daily. 0 04/18/2011 12/20/2023 Discontinued Comment on above: Take 1 tablet by hermelinda twice daily. zolpidem tartrate 5 mg oral tablet (1 source) gamma-Aminobutyric Acid-ergic Agonist Start: 01-23-2022 End: 01-24-2022 zolpidem (AMBIEN) tablet 5 mg Problems Active Problems Problem Classification Problem Date Documented Date Episodic/Chronic Acute bronchitis (17 sources) Acute bronchitis; Translations: [Acute bronchitis] Onset: 4 Episodic Administrative/social admission (11 sources) Dietary counseling and surveillance; Translations: [Patient encounter status] Onset: 1 Resolved: 2 Episodic Allergic reactions (20 sources) Atopic dermatitis; Translations: [Other atopic dermatitis] Onset: 6 05-27-2006 Chronic Allergic reactions (5 sources) Allergic condition; Translations: [Allergy, unspecified, initial encounter] 11-20-2024 Episodic Asthma (20 sources) Asthmatic bronchitis; Translations: [Unspecified asthma, uncomplicated] Onset: 1 10-26-2019 Chronic Biliary tract disease (6 sources) Postcholecystectomy diarrhea 05-04-2024 Episodic Cardiac dysrhythmias (20 sources) Supraventricular tachycardia; Translations: [Inappropriate sinus tachycardia, so stated] Onset: 4 Chronic Cardiac dysrhythmias (2 sources) Tachyarrhythmia ; Translations: [Tachycardia, unspecified] Onset: 4 Episodic Cataract (20 sources) After-cataract of bilateral eyes; Translations: [Other secondary cataract, bilateral] Onset: 4 08-06-2023 Chronic Chronic obstructive pulmonary disease and bronchiectasis (20 sources) Bronchitis, not specified as acute or chronic; Translations: [Bronchitis] Onset: 5 Episodic Conditions associated with dizziness or vertigo (1 source) Dizziness and giddiness; Translations: [Lightheadedness] Onset: 5 Episodic Deficiency and other anemia (3 sources) Anemia of chronic disease; Translations: [Anemia in other chronic diseases classified elsewhere] Chronic Deficiency and other anemia (1 source) Anemia in other chronic diseases classified elsewhere; Translations: [Anemia of chronic disease] Onset: 5 Chronic Deficiency and other anemia (20 sources) Hemoglobin low 05-10-2023 Episodic Diabetes mellitus with complications (20 sources) Hypoglycemia due to diabetes mellitus; Translations: [Type 2 diabetes mellitus with hypoglycemia without coma] Onset: 1 Resolved: 2 Chronic Diabetes mellitus without complication (20 sources) Type 2 diabetes mellitus without complication; Translations: [Type 2 diabetes mellitus without complications] Onset: 7 Chronic Digestive congenital anomalies (3 sources) Congenital web of esophagus; 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] Onset: 2 Chronic Diseases of white blood cells (7 sources) Leukocytosis; Translations: [Elevated white blood cell count, unspecified] Onset: 4 Chronic Disorders of lipid metabolism (20 sources) Hyperlipidemia; Translations: [Hyperlipidemia, unspecified] Onset: 2 Resolved: 2 05-06-2012 Chronic Diverticulosis and diverticulitis (20 sources) Diverticular disease; Translations: [Diverticulosis] 06-08-2021 Chronic E Codes: Fall (1 source) Unspecified fall, initial encounter; Translations: [Fall, initial encounter] Onset: 5 Episodic Esophageal disorders (20 sources) Gastro-esophageal reflux disease without esophagitis; 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] Onset: 7 06-08-2021 Chronic Fluid and electrolyte disorders (2 sources) Dehydration; Translations: [Acidosis] Onset: 3 Episodic Genitourinary symptoms and ill-defined conditions (18 sources) Dysuria; Translations: [Dysuria] Episodic Hemorrhoids (20 sources) Hemorrhoids 06-08-2021 Episodic Hypertension with complications and secondary hypertension (1 source) Hypertensive urgency ; Translations: [Hypertensive urgency] Onset: 4 Chronic Immunity disorders (2 sources) Specific antibody deficiency ; 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] 03-25-2024 Chronic Influenza (1 source) Influenza; Translations: [Influenza due to other identified influenza virus with other respiratory manifestations] Onset: 5 Episodic Intestinal infection (20 sources) Viral gastritis 11-22-2022 Episodic Joint disorders and dislocations; trauma-related (20 sources) Derangement of knee 09-11-2022 Chronic Menopausal disorders (1 source) Hormone replacement therapy; Translations: [HORMONE REPLACEMENT THERAPY] Onset: 3 Episodic Mycoses (20 sources) Candidiasis of mouth; Translations: [Candidal stomatitis] Onset: 5 05-06-2021 Episodic Noninfectious gastroenteritis (20 sources) Colitis; Translations: [Noninfective gastroenteritis and colitis, unspecified] Onset: 3 11-22-2022 Episodic Nonspecific chest pain (1 source) Chest pain; Translations: [Chest pain, unspecified] Onset: 4 Episodic Nutritional deficiencies (20 sources) Vitamin D deficiency; Translations: [Vitamin D deficiency, unspecified] Onset: 4 Chronic Open wounds of extremities (11 sources) Laceration of left knee; Translations: [Laceration without foreign body, left knee, initial encounter] Onset: 5 11-20-2024 Episodic Osteoarthritis (20 sources) Osteoarthritis of foot joint; Translations: [Degenerative joint disease of ankle AND/OR foot] Onset: 5 09-14-2016 Chronic Osteoporosis (20 sources) Postmenopausal osteoporosis; Translations: [Age-related osteoporosis without current pathological fracture] Onset: 2 05-07-2022 Chronic Other aftercare (20 sources) Long-term current use of insulin; Translations: [prison (current) use of insulin] 11-20-2024 Episodic Other aftercare (15 sources) Post-discharge follow-up 01-15-2024 Episodi c Other aftercare (1 source) Long-term current use of drug therapy; Translations: [Other terminal carman (current) drug therapy] Onset: 4 Episodic Other aftercare (2 sources) Wound ; Translations: [Encounter for other specified surgical aftercare] 05-11-2024 Episodic Other aftercare (1 source) Encounter for therapeutic drug level monitoring; Translations: [Encounter for therapeutic drug level monitoring] Onset: 4 Episodic Other aftercare (2 sources) Removal of sutures done; Translations: [Encounter for removal of sutures] 12-08-2024 Episodic Other connective tissue disease (3 sources) History of right total knee replacement; Translations: [Presence of right artificial knee joint] Chronic Other connective tissue disease (3 sources) Presence of right artificial knee joint; Translations: [PRESENCE RT ARTIFICIAL KNEE JOINT] Onset: 2 Chronic Other connective tissue disease (20 sources) Artificial knee joint present; Translations: [Presence of unspecified artificial knee joint] Onset: 3 03-01-2023 Chronic Other connective tissue disease (20 sources) History of prosthetic unicompartmental arthroplasty of right knee; Translations: [Presence of right artificial knee joint] Onset: 3 03-01-2023 Chronic Other connective tissue disease (20 sources) History of reverse prosthetic total arthroplasty of left shoulder; Translations: [Presence of left artificial shoulder joint] Onset: 4 10-14-2023 Chronic Other connective tissue disease (2 sources) Presence of left artificial shoulder joint; Translations: [Status post reverse total replacement of left shoulder] Onset: 4 Chronic Other connective tissue disease (4 sources) Pain in left foot; Translations: [PAIN IN LEFT FOOT] Onset: 3 Episodic Other diseases of veins and lymphatics (20 sources) Chronic peripheral venous hypertension with lower extremity complication 09-11-2022 Chronic Other gastrointestinal disorders (20 sources) Alteration in bowel elimination 04-24-2021 Episodic Other gastrointestinal disorders (20 sources) Loose stool 09-14-2021 Episodic Other gastrointestinal disorders (1 source) Abnormal feces; Translations: [Other fecal abnormalities] Onset: 2 Episodic Other gastrointestinal disorders (20 sources) Dysphagia; Translations: [Dysphagia, unspecified] Onset: 2 Episodic Other gastrointestinal disorders (2 sources) H/O: gastrointestinal disease; Translations: [Personal history of other diseases of the digestive system] Onset: 2 Episodic Other gastrointestinal disorders (5 sources) Diarrhea, unspecified; Translations: [R19.7] Onset: 4 Episodic Other gastrointestinal disorders (15 sources) H/O: colitis 01-21-2024 Episodic Other gastrointestinal disorders (2 sources) Diarrhea; Translations: [Diarrhea, unspecified] Onset: 4 Episodic Other hematologic conditions (4 sources) ESR raised; Translations: [Elevated erythrocyte sedimentation rate] Episodic Other hematologic conditions (1 source) Elevated erythrocyte sedimentation rate; Translations: [Elevated sed rate] Onset: 5 Episodic Other injuries and conditions due to external causes (8 sources) Wound of skin 03-10-2024 Episodic Other injuries and conditions due to external causes (7 sources) Injury of left knee; Translations: [Unspecified injury of left lower leg, initial encounter] 11-20-2024 Episodic Other injuries and conditions due to external causes (3 sources) Unspecified injury of left lower leg, initial encounter; Translations: [Knee, leg, ankle, and foot injury] 11-20-2024 Episodic Other liver diseases (1 source) Abnormal levels of other serum enzymes; Translations: [ABNORMAL LEVELS OTHER SERUM ENZYMES] Onset: 3 Episodic Other liver diseases (1 source) Enzyme level - finding; Translations: [Abnormal levels of other serum enzymes] Onset: 4 Episodic Other liver diseases (6 sources) Elevated liver enzymes level 05-04-2024 Episodic Other lower respiratory disease (20 sources) Cough; Translations: [Cough] Onset: 4 03-20-2023 Episodic Other lower respiratory disease (1 source) Unspecified acute lower respiratory infection Episodic Other lower respiratory disease (20 sources) Hypoxemia 09-11-2022 Episodic Other lower respiratory disease (1 source) Personal history of pneumonia (recurrent); Translations: [PERSONAL HX OF PNEUMONIA RECURRENT] Onset: 3 Episodic Other lower respiratory disease (4 sources) Shortness of breath; Translations: [SHORTNESS OF BREATH] Onset: 2 Episodic Other lower respiratory disease (20 sources) Dyspnea; Translations: [Shortness of breath] Onset: 5 03-20-2023 Episodic Other lower respiratory disease (20 sources) Wheezing 03-20-2023 Episodic Other lower respiratory disease (19 sources) Multiple nodules of lung 2023 Episodi c Other nervous system disorders (16 sources) Neuropathy; Translations: [Polyneuropathy, unspecified] Chronic Other nervous system disorders (1 source) Polyneuropathy, unspecified; Translations: [Neuropathy G62.9] Onset: 1 Resolved: 1 Chronic Other nervous system disorders (2 sources) Other chronic pain; Translations: [Bilateral chronic knee pain] Onset: 4 Chronic Other non-traumatic joint disorders (20 sources) Rotator cuff arthropathy of left shoulder; Translations: [Other specific arthropathies, not elsewhere classified, left shoulder] Onset: 2 05-07-2022 Chronic Other non-traumatic joint disorders (20 sources) Derangement of left shoulder joint; Translations: [Other specific joint derangements of left shoulder, not elsewhere classified] Onset: 3 03-01-2023 Chronic Other non-traumatic joint disorders (1 source) Disorder of joint of shoulder region; Translations: [Other specific arthropathies, not elsewhere classified, left shoulder] Onset: 3 03-01-2023 Chronic Other non-traumatic joint disorders (20 sources) Arthropathy of left shoulder; Translations: [Other specific arthropathies, not elsewhere classified, left shoulder] Onset: 3 03-01-2023 Chronic Other non-traumatic joint disorders (2 sources) Pain in left shoulder; Translations: [Pain in joint, shoulder region] 10-09-2023 Episodic Other non-traumatic joint disorders (1 source) Ankle pain; Translations: [Pain in right ankle and joints of right foot] 02-15-2025 Episodic Other non-traumatic joint disorders (1 source) Pain in right ankle and joints of right foot; Translations: [Chronic ankle pain, bilateral] Onset: 5 Episodic Other non-traumatic joint disorders (1 source) Pain in left ankle and joints of left foot; Translations: [Chronic ankle pain, bilateral] Onset: 5 Episodic Other nutritional; endocrine; and metabolic disorders (20 sources) Obesity; Translations: [Other obesity] Onset: 7 05-06-2021 Chronic Other nutritional; endocrine; and metabolic disorders (20 sources) Body mass index 30+ - obesity; Translations: [Body mass index (BMI) 37.0-37.9, adult] 09-14-2021 Chronic Other nutritional; endocrine; and metabolic disorders (20 sources) Body mass index 40+ - severely obese; Translations: [Body mass index (BMI) 40.0-44.9, adult] Onset: 4 09-11-2022 Chronic Other nutritional; endocrine; and metabolic disorders (1 source) Obesity, unspecified; Translations: [Obesity (BMI 35.0-39.9 without comorbidity) E66.9] Onset: 1 Resolved: 1 Chronic Other nutritional; endocrine; and metabolic disorders (17 sources) Obese class II; Translations: [Body mass index (BMI) 35.0-35.9, adult] Onset: 4 Chronic Other nutritional; endocrine; and metabolic disorders (1 source) Body mass index (BMI) 35.0-35.9, adult Onset: 2 Resolved: 2 Chronic Other nutritional; endocrine; and metabolic disorders (1 source) Hypomagnesemia; Translations: [HYPOMAGNESEMIA] Onset: 3 Chronic Other nutritional; endocrine; and metabolic disorders (2 sources) Morbid obesity; Translations: [Morbid (severe) obesity due to excess calories] Onset: 4 Chronic Other nutritional; endocrine; and metabolic disorders (20 sources) Unintentional weight loss 09-11-2022 Episodic Other nutritional; endocrine; and metabolic disorders (1 source) Loss of appetite; Translations: [Anorexia] Onset: 4 Episodic Other skin disorders (2 sources) Actinic keratosis; Translations: [Actinic keratosis] 05-11-2024 Episodic Other upper respiratory disease (20 sources) Allergic rhinitis 09-11-2022 Chronic Other upper respiratory disease (1 source) Allergic rhinitis due to pollen; Translations: [Allergic rhinitis due to pollen] 11-22-2024 Chronic Other upper respiratory disease (20 sources) Nasal congestion 03-20-2023 Episodic Other upper respiratory infections (20 sources) Chronic sinusitis; Translations: [Chronic sinusitis, unspecified] Onset: 3 Chronic Other upper respiratory infections (2 sources) Acute upper respiratory infection, unspecified; Translations: [Acute upper respiratory infection] Onset: 4 Episodic Otitis media and related conditions (20 sources) Finding of fluid behind tympanic membrane; Translations: [Otitis media] Onset: 4 05-10-2023 Episodic Phlebitis; thrombophlebitis and thromboembolism (5 sources) Deep venous thrombosis; Translations: [Acute embolism and thrombosis of unspecified deep veins of unspecified lower extremity] 11-20-2024 Episodic Pneumonia (except that caused by tuberculosis or sexually transmitted disease) (20 sources) Pneumonia; Translations: [Pneumonia, unspecified organism] Onset: 4 Episodic Residual codes; unclassified (2 sources) Procedure carried out on subject; Translations: [Encounter for prophylactic measures, unspecified] Onset: 2 Episodic Residual codes; unclassified (1 source) Acquired absence of other specified parts of digestive tract; Translations: [ACQ ABSENCE OTH PART DIGESTV TRACT] Onset: 3 Episodic Residual codes; unclassified (1 source) Acquired absence of both cervix and uterus; Translations: [ACQUIRED ABSENCE BOTH CERVIX AND UTERUS] Onset: 3 Episodic Residual codes; unclassified (1 source) Pain, unspecified; Translations: [Pain, unspecified] Onset: 4 Episodic Residual codes; unclassified (1 source) Edema; Translations: [Edema, unspecified] Onset: 4 Episodic Residual codes; unclassified (11 sources) Chronic disease 01-29-2024 Episodic Residual codes; unclassified (1 source) Pain; Translations: [Pain, unspecified] Onset: 5 Episodic Respiratory failure; insufficiency; arrest (adult) (1 source) Acute respiratory failure; Translations: [Acute respiratory failure with hypoxia] Onset: 4 Episodic Rheumatoid arthritis and related disease (20 sources) Rheumatoid arthritis, unspecified; Translations: [Rheumatoid arthritis] Onset: 1 04-18-2011 Chronic Skin and subcutaneous tissue infections (18 sources) Cellulitis; Translations: [Cellulitis, unspecified] Onset: 4 Episodic Substance-related disorders (15 sources) Smoker 01-20-2024 Chronic Comment on above: Added secondary to d ocumentation in Social History. Syncope (2 sources) Syncope and collapse; Translations: [Syncope and collapse] Onset: 2 Episodic Thyroid disorders (20 sources) Acquired hypothyroidism; Translations: [Hypothyroidism, unspecified] Onset: 6 Chronic Unclassified (2 sources) Presence of functional implant, unspecified; Translations: [Presence of functional implant, unspecified] Onset: 7 Chronic Unclassified (20 sources) Electrocardiogram abnormal; Translations: [Abnormal electrocardiogram [ECG] [EKG]] Onset: 7 Episodic Unclassified (1 source) Unknown / UNK(Unknown) Onset: 7 Unclassified (20 sources) Patient encounter status 05-11-2022 Unclassified (1 source) PERSONAL HISTORY OF COVID-19; Translations: [PERSONAL HISTORY OF COVID-19] Onset: 3 Unclassified (1 source) CONTACT W/AND (SUSP) EXPOS COVID-19; Translations: [CONTACT W/AND (SUSP) EXPOS COVID-19] Onset: 3 Unclassified (3 sources) COUGH, UNSPECIFIED; Translations: [COUGH, UNSPECIFIED] Onset: 2 Unclassified (20 sources) Exposure to 2019 novel coronavirus 03-20-2023 Unclassified (1 source) Post Op Onset: 4 Urinary tract infections (2 sources) Urinary tract infection, site not specified Episodic Viral infection (12 sources) Herpes zoster without complication; Translations: [Zoster without complications] Onset: 4 Episodic Past or Other Problems Problem Classification Problem Date Documented Date Episodic/Chronic Acquired foot deformities (6 sources) Acquired equinus deformity of foot; Translations: [Acquired equinus deformity of left foot] Onset: 05-24-2015 05-24-2015 Episodic Bacterial infection; unspecified site (4 sources) Methicillin resistant Staphylococcus aureus infection; Translations: [Methicillin resistant Staphylococcus aureus infection, unspecified site] Onset: 05-22-2024 05-21-2024 Episodic Complication of device; implant or graft (20 sources) Mechanical complication of internal fixation device; Translations: [Disorders of musculoskeletal implants and repairs] Onset: 10-28-2015 05-16-2017 Episodic Complications of surgical procedures or medical care (20 sources) Postoperative complication; Translations: [Other postprocedural complications and disorders of digestive system] Onset: 05-04-2024 Episodic Deficiency and other anemia (20 sources) Anemia; Translations: [Anemia, unspecified] Onset: 12-05-2022 06-08-2021 Episodic E Codes: Natural/environment (1 source) Exposure to other specified factors, initial encounter; Translations: [EXPOSURE OTHER SPEC FACTORS INITIAL] Onset: 05-09-2022 Episodic Esophageal disorders (1 source) Esophageal disorders Essential hypertension (20 sources) Hypertensive disorder; Translations: [Essential (primary) hypertension] Onset: 12-20-2023 Resolved: 12-20-2023 12-20-2023 Chronic Gastritis and duodenitis (1 source) Gastritis, unspecified, without bleeding; Translations: [GASTRITIS UNS WITHOUT BLEEDING] Onset: 05-09-2022 Episodic Immunizations and screening for infectious disease (20 sources) Contact with and (suspected) exposure to other viral communicable diseases; Translations: [Anti-nuclear factor positive] Onset: 05-07-2022 Episodic Medical examination/evaluati on (6 sources) Preoperative state; Translations: [Encounter for preprocedural cardiovascular examination] Onset: 05-13-2017 Episodic Nausea and vomiting (20 sources) Nausea; Translations: [Nausea] Onset: 10-13-2021 04-24-2021 Episodic Other acquired deformities (6 sources) Deformity of calcaneum; Translations: [Deformity of left calcaneus] Onset: 05-24-2015 09-14-2016 Episodic Other aftercare (20 sources) H/O: high risk medication; Translations: [Other terminal carman (current) drug therapy] Onset: 05-07-2022 05-07-2022 Episodic Other aftercare (2 sources) Other terminal carman (current) drug therapy; Translations: [OTH COMBO WELDER CURRENT DRUG THERAPY] Onset: 05-07-2022 Episodic Other aftercare (16 sources) Patient encounter status; Translations: [extermination supervisor (current) use of non-steroidal anti-inflammatories (NSAID)] Onset: 10-01-2023 10-01-2023 Episodic Other aftercare (20 sources) extermination supervisor current use of non-steroidal anti-inflammatory drug; Translations: [extermination supervisor (current) use of non-steroidal anti-inflammatories (NSAID)] Onset: 10-01-2023 10-01-2023 Episodic Other circulatory disease (20 sources) Elevated blood-pressure reading without diagnosis of hypertension; Translations: [Elevated blood-pressure reading, without diagnosis of hypertension] Onset: 12-20-2023 12-20-2023 Episodic Other connective tissue disease (12 sources) Posterior tibial tendinitis, left leg; Translations: [Non-traumatic tendon rupture] Onset: 06-29-2012 05-24-2015 Episodic Other connective tissue disease (20 sources) Pain of bilateral hands; Translations: [Pain in right hand] Onset: 05-07-2022 05-07-2022 Episodic Other connective tissue disease (20 sources) Tear of right rotator cuff; Translations: [Unspecified rotator cuff tear or rupture of right shoulder, not specified as traumatic] Onset: 03-01-2023 03-01-2023 Episodic Other connective tissue disease (20 sources) Tear of left rotator cuff; Translations: [Unspecified rotator cuff tear or rupture of left shoulder, not specified as traumatic] Onset: 03-01-2023 03-01-2023 Episodic Other connective tissue disease (20 sources) Swelling of lower limb; Translations: [Other specified soft tissue disorders] Onset: 03-30-2024 03-30-2024 Episodic Other connective tissue disease (1 source) Pain in right hand; Translations: [Bilateral hand pain] Onset: 05-07-2022 Episodic Other connective tissue disease (1 source) Pain in left hand; Translations: [Bilateral hand pain] Onset: 05-07-2022 Episodic Other injuries and conditions due to [...] Onset: 04-11-2022 Episodic Other nervous system disorders (6 sources) Other acute postprocedural pain; Translations: [Pain in joint, lower leg] Onset: 02-22-2022 Episodic Other nervous system disorders (20 sources) Postoperative pain ; Translations: [Other acute postprocedural pain] Onset: 04-15-2024 04-15-2024 Episodic Other non-epithelial cancer of skin (20 sources) Personal history of other malignant neoplasm of skin; Translations: [Basal cell carcinoma of skin of breast] Onset: 11-22-2022 12-20-2023 Episodic Other non-traumatic joint disorders (20 sources) Pain in right knee; Translations: [Pain in joint, lower leg] Onset: 02-22-2022 Episodic Other non-traumatic joint disorders (20 sources) Bilateral wrist pain; Translations: [Pain in right wrist] Onset: 05-07-2022 05-07-2022 Episodic Other non-traumatic joint disorders (7 sources) Pain in left knee; Translations: [Left knee pain] Onset: 10-01-2023 11-20-2024 Episodic Other skin disorders (20 sources) Alopecia areata; Translations: [Alopecia areata, unspecified] Onset: 05-27-2006 05-27-2006 Episodic Other upper respiratory disease (2 sources) Nasal congestion; Translations: [NASAL CONGESTION] Onset: 01-04-2022 Episodic Pulmonary heart disease (20 sources) H/O: pulmonary embolus; Translations: [Personal history of pulmonary embolism] Onset: 05-22-2022 Episodic Residual codes; unclassified (20 sources) FH: Gout; Translations: [Family history of other diseases of the musculoskeletal system and connective tissue] Onset: 05-07-2022 05-07-2022 Episodic Residual codes; unclassified (20 sources) FH: Rheumatoid arthritis; Translations: [Family history of arthritis] Onset: 05-07-2022 05-07-2022 Episodic Residual codes; unclassified (20 sources) Past history of procedure; Translations: [Other specified postprocedural states] Onset: 05-22-2022 Episodic Residual codes; unclassified (20 sources) History of operative procedure on shoulder; Translations: [Other specified postprocedural states] Onset: 04-14-2024 04-14-2024 Episodic Residual codes; unclassified (1 source) Family history of arthritis; Translations: [Family history of rheumatoid arthritis] Onset: 05-07-2022 Episodic Residual codes; unclassified (1 source) Other specified postprocedural states; Translations: [S/P shoulder surgery] Onset: 04-14-2024 Episodic Septicemia (except in labor) (2 sources) Sepsis; Translations: [Sepsis, unspecified organism] Onset: 01-21-2024 Episodic Unclassified (4 sources) Other specified health [...] Translations: [COUGH, UNSPECIFIED] Onset: 12-29-2021 Viral infection (20 sources) COVID-19; Translations: [Disease caused by 2019-nCoV] Onset: 04-11-2022 Results Test Name Value Interpretation Reference Range Facil ity ED NOTEon 03-13-2025 ED NOTE HNO ID: [id number] Author: GERA LAYNE RN Service: ? Author Type: Registered Nurse Type: ED Notes Filed: 03/13/2025 00:08 Note Text: Discharge instructions d/w pt and family at bedside. Stated understanding with no further questions for this nurse. Encouraged f/u with PCP and referring doctors given. Stated understanding. Prescription(S) were given X 0. Normal [facility] 03-12-2025 [facility] HNO ID: [id number] Author: MANUEL SERNA CT Service: Radiology Author Type: Technologist Type: Allied Health Filed: 03/12/2025 20:33 Note Text: Radiology Service Progress Note PATIENT NAME: Carolina Gutierrez DATE OF SERVICE: March 12, 2025 TIME: 8:32 PM PATIENT IDENTITY VERIFICATION COMPLETED USING TWO (2) IDENTIFIERS: Name and Date of confirmed by patient verbally and Name and Date of confirmed by identification band. FALL SCREENING: Has the patient had 2 falls in the last year or 1 fall with injury or currently using an Ambulatory Assistive Device (Walker, Cane, Wheelchair, Crutches, etc.)? Emergency Room Patient: Screened in ED PATIENT GENDER DATA: Assigned female at . status: : No status: NO. PATIENT RELEVANT IMPLANT DATA REVIEWED: Not Applicable PATIENT PRESENTS WITH AN IMPLANTABLE OR ATTACHED HABITAT CONSERVATION PLANNER: No RADIOLOGY DEPARTMENT: CT; Exam(s) Completed: Brain , Lower extremity , and Spine . Anesthesia: No PERIPHERAL IV DATA: Not applicable SIGNED BY: FOUZIA Smiley March 12, 2025 8:32 PM Normal [facility] Basic metabolic 2000 panelon 03-12-2025 Anion gap [Moles/Vol] 11 mmol/L Normal 8-15 [facility] Comment on above: Order Comment: Lorene montano Type: BLOOD SPECIMEN Ordering Facility: [facility] Address: [address] [place] [address] Performed By: #### 1 9123-9, 02872-6 #### [facility] CLIA [id number] [address] [place] [address] [place] Calcium [Mass/Vol] 9.0 mg/dL Normal 8.5-10.2 [facility] Comment on above: Order Comment: Lorene montano Type: BLOOD SPECIMEN Ordering Facility: [facility] Address: [address] [place] [address] Performed By: #### 1 9123-9, 85970-0 #### [facility] CLIA [id number] [address] [place] [address] [place] Chloride [Moles/Vol] 101 mmol/L Normal 98-107 [facility] Comment on above: Order Comment: Lorene montano Type: BLOOD SPECIMEN Ordering Facility: [facility] Address: [address] [place] [address] Performed By: #### 1 9123-9, 68408-3 #### [facility] CLIA [id number] [address] [place] CO2 [Moles/Vol] 26 mmol/L Normal 22-30 [facility] Comment on above: Order Comment: Lorene montano Type: BLOOD SPECIMEN Ordering Facility: [facility] Address: [address] [place] [address] Performed By: #### 1 9123-9, 01938-6 #### [facility] CLIA [id number] [address] [place] [address] [place] Creatinine [Mass/Vol] 0.72 mg/dL Normal 0.58-0.96 [facility] Comment on above: Order Comment: Lorene montano Type: BLOOD SPECIMEN Ordering Facility: [facility] Address: [address] [place] [address] Performed By: #### 1 9123-9, 64584-9 #### [facility] CLIA [id number] [address] eGFRcr SerPlBld CKD-EPI 2020 93 mL/min/1.73m??? Normal >=60 [facility] Comment on above: Order Comment: Lorene montano Type: BLOOD SPECIMEN Ordering Facility: [facility] Address: [address] [place] [address] Result Comment: Katlyn mated Glomerular Filtration Rate (eGFR) is calculated using the 2020 CKD-EPI creatinine equation. This equation utilizes serum creatinine, sex, and age as parameters. The creatinine assay has traceable calibration to isotope dilution-mass spectrometry. Refer to KDIGO guidelines for clinical interpretation. In patients with unstable renal function, e.g. those with acute kidney injury, the eGFR may not accurately reflect actual GFR. Performed By: #### 1 9123-9, 00840-5 #### [facility] CLIA [id number] [address] [place] Glucose [Mass/Vol] 102 mg/dL High 74-99 [facility] Comment on above: Order Comment: Lorene montano Type: BLOOD SPECIMEN Ordering Facility: [facility] Address: [address] [place] [address] Result Comment: The [place] Diabetes Association (ADA) provides guidance for cutoff [...] Standards of Medical Care in Diabetes 2016, [place] [employer]. Diabetes Care. 2016.39(Suppl 1). Performed By: #### 1 9123-9, 66484-2 #### [facility] CLIA [id number] 1000 [place] [address] [place] Potassium [Moles/Vol] Normal [facility] Comment on above: Order Comment: Lorene montano Type: BLOOD SPECIMEN Ordering Facility: [facility] Address: [address] [place] [address] Result Comment: Unab le to assay due to interference from hemolysis. Suggest reorder as clinically indicated. Performed By: #### 1 91239, 08587-1 #### [facility] CLIA [id number] 1000 [place] [address] [place] Sodium [Moles/Vol] 138 mmol/L Normal 136-144 [facility] Comment on above: Order Comment: Lorene montano Type: BLOOD SPECIMEN Ordering Facility: [facility] Address: [address] [place] [address] Performed By: #### 1 91239, 14124-0 #### [facility] CLIA [id number] 1000 [place] [address] [place] Urea nitrogen [Mass/Vol] 22 mg/dL High 7-21 [facility] Comment on above: Order Comment: Lorene montano Type: BLOOD SPECIMEN Ordering Facility: [facility] Address: [address] [place] [address] Performed By: #### 1 91239, 18515-4 #### [facility] CLIA [id number] 1000 [place] [address] [place] CBC panel Auto (Bld)on 03-12 Erythrocyte distribution width (RBC) [Ratio] 14.9 % Normal 11.5-15.0 [facility] Comment on above: Order Comment: Speci men Type: BLOOD SPECIMEN Ordering Facility: [facility] Address: [address] [place] [address] Performed By: #### 5 8410-2 #### [facility] CLIA [id number] [address] OF [facility] Hematocrit (Bld) [Volume fraction] 35.6 % Low 36.0-46.0 [facility] Comment on above: Order Comment: Speci men Type: BLOOD SPECIMEN Ordering Facility: [facility] Address: [address] [place] [address] Performed By: #### 5 8410-2 #### [facility] CLIA [id number] [address] [place] Hemoglobin (Bld) [Mass/Vol] 11.5 g/dL Normal 11.5-15.5 [facility] Comment on above: Order Comment: Speci men Type: BLOOD SPECIMEN Ordering Facility: [facility] Address: [address] [place] [address] Performed By: #### 5 8410-2 #### [facility] CLIA [id number] [address] MCH (RBC) [Entitic mass] 29.0 pg Normal 26.0-34.0 [facility] Comment on above: Order Comment: Speci men Type: BLOOD SPECIMEN Ordering Facility: [facility] Address: [address] [place] [address] Performed By: #### 5 8410-2 #### [facility] CLIA [id number] [address] [place] MCHC (RBC) [Mass/Vol] 32.3 g/dL Normal 30.5-36.0 [facility] Comment on above: Order Comment: Speci men Type: BLOOD SPECIMEN Ordering Facility: [facility] Address: [address] [place] [address] Performed By: #### 5 8410-2 #### [facility] CLIA [id number] [address] MCV (RBC) [Entitic vol] 89.7 fL Normal 80.0-100.0 [facility] Comment on above: Order Comment: Speci men Type: BLOOD SPECIMEN Ordering Facility: [facility] Address: [address] [place] [address] Performed By: #### 5 8410-2 #### [facility] CLIA [id number] [address] [place] Nucleated RBC (Bld) [#/Vol] 10*3/uL Normal <0.01 [facility] Comment on above: Order Comment: Speci men Type: BLOOD SPECIMEN Ordering Facility: [facility] Address: [address] [place] [address] Performed By: #### 5 8410-2 #### [facility] CLIA [id number] [address] [place] Platelet mean volume (Bld) [Entitic vol] 9.1 fL Normal 9.0-12.7 [facility] Comment on above: Order Comment: Speci men Type: BLOOD SPECIMEN Ordering Facility: [facility] Address: [address] [place] [address] Performed By: #### 5 8410-2 #### [facility] CLIA [id number] [address] Platelets (Bld) [#/Vol] 308 10*3/uL Normal 150-400 [facility] Comment on above: Order Comment: Speci men Type: BLOOD SPECIMEN Ordering Facility: [facility] Address: [address] [place] [address] Performed By: #### 5 8410-2 #### [facility] CLIA [id number] 1000 [place] [address] [place] RBC (Bld) [#/Vol] 3.97 10*6/uL Normal 3.90-5.20 [facility] Comment on above: Order Comment: Speci men Type: BLOOD SPECIMEN Ordering Facility: [facility] Address: [address] [place] [address] Performed By: #### 5 8410-2 #### [facility] CLIA [id number] [address] [place] [address] [place] WBC (Bld) [#/Vol] 11.12 10*3/uL High 3.70-11.00 [facility] Comment on above: Order Comment: Speci men Type: BLOOD SPECIMEN Ordering Facility: [facility] Address: [address] [place] [address] Performed By: #### 5 8410-2 #### [facility] CLIA [id number] [address] [place] [address] [place] BRAIN WO IVCONon 03-12-[address] BRAIN WO IVCON * * *Final Report* * * DATE OF EXAM: Mar 12 2025 8:41PM [facility] [place] [facility] [place] CT BRAIN WO IVCON / [...] are unremarkable. Localizer images: No additional findings. IMPRESSION: No acute intracranial hemorrhage identified. Project Product Manager: DEBBIE Transcribe Date/Time: Mar 12 2025 9:09P Dictated by : DILSHAD AC MD This examination was interpreted and the report reviewed and electronically signed by: DILSHAD AC MD on Mar 12 2025 9:14PM EST [id number] CN [facility] CT CERVICAL SPINE WO IVCONon 03-12-2025 CT CERVICAL SPINE WO IVCON * * *Final Report* * * DATE OF EXAM: Mar 12 2025 8:41PM [facility] [place] - CT CERVICAL SPINE WO IVCON [...] Counting reference: Craniocervical junction. Anatomic Variants: None. Full Service Supervisor (topogram) images: No additional findings. Alignment: No [...] space narrowing. Bilateral facet arthrosis is present IMPRESSION: No acute fractures demonstrated in the cervical spine. Cervical spine degenerative changes with C5-6 disc space narrowing. Project Product Manager: DEBBIE Transcribe Date/Time: Mar 12 2025 9:09P Dictated by : DILSHAD AC MD This examination was interpreted and the report reviewed and electronically signed by: DILSHAD AC MD on Mar 12 2025 9:21PM EST [id number] [facility] CT KNEE WO IVCON LTon 2024 CT KNEE WO IVCON LT * * *Final Report* * * DATE OF EXAM: Mar 12 2025 8:41PM [facility] [place]83 - CT KNEE WO IVCON LT [...] constrained right total knee arthroplasty are noted. IMPRESSION: 1. Postsurgical changes of medial unicompartmental arthroplasty. No acute osseous abnormality identified. 2. Subcutaneous stranding and gas in the soft tissues anterior to the patella compatible with patient's history of laceration. 3. 2 radiopaque densities in the soft tissues anterior to the tibial tuberosity which may represent foreign bodies. Project Product Manager: PSCB Transcribe Date/Time: Mar 12 2025 10:05P Dictated by : BECKIE CONNELL MD This examination was interpreted and the report reviewed and electronically signed by: BECKIE CONNELL MD on Mar 12 2025 10:19PM EST [id number] CN [facility] ED NOTEon 03-12-2025 ED NOTE HNO ID: [id number] Author: GERA LAYNE RN Service: ? Author Type: Registered Nurse Type: ED Notes Filed: 03/12/2025 20:21 Note Text: Pt arrives to ED from home BIB EMS for c/o mechanical fall and dizziness while walking on uneven concrete. Lac to left knee bleeding controlled on arrival, denies LOC, denies blood thinners, denies HH. [facility] ED NOTE HNO ID: [id number] Author: GEAR LAYNE RN Service: ? Author Type: Registered Nurse Type: ED Notes Filed: 03/12/2025 20:12 Note Text: Bed: ED-06 Expected date: 03/12/25 Expected time: Means of arrival: Comments: M2 Normal [facility] ED PROGRESS NOTE (PROVIDER)o n 03-12-2025 ED PROGRESS NOTE (PROVIDER) HNO ID: [id number] Author: ANDREW MILLER MD Service: Emergency Medicine Author Type: Physician Type: ED PROGRESS NOTE (PROVIDER) Filed: 03/13/2025 00:36 Note Text: ED CONTINUATION OF CARE NOTE Code Status: Full Code Assumed care from: Brendon Presentation / Findings / Interventions / Plan / Items to Follow Up: Patient signed out to me pending second troponin. It is thankfully negative at this time without any significant change from the previous. I have discussed all findings with the patient at bedside. We have discussed all return and follow-up instructions to which she is amenable. Discharged [...] 4.0 [KS] ED Course User Index [KS] Gabby Wooten DO Clinical Impressions as of 03/12/25 2337 Laceration of left knee, initial encounter Fall, initial encounter Lightheadedness Results for orders placed or performed during the hospital encounter of 03/12/25 EKG Impression SINUS RHYTHM WITH OCCASIONAL PREMATURE VENTRICULAR COMPLEXES POSSIBLE LEFT ATRIAL ENLARGEMENT CANNOT RULE OUT ANTERIOR INFARCT , AGE UNDETERMINED T WAVE ABNORMALITY, CONSIDER LATERAL ISCHEMIA ABNORMAL ECG No Stemi Confirmed by GABBY WOOTEN DO ([id number]) on 03/12/2025 9:22:56 PM Medical Decision Making SIGNATURE: Andrew Miller MD PATIENT NAME: Carolina Gutierrez DATE: March 12, 2025 TIME: 11:37 PM PAGER/CONTACT #: [facility] ED PROV NOTEon 03-12-2025 ED PROV NOTE HNO ID: [id number] Author: GABBY WOOTEN DO Service: Emergency Medicine Author Type: Physician Type: ED Provider Notes Filed: 03/12/2025 22:51 Note Text: ED Provider Note Patient Name: Carolina Gutierrez : 1960 SERVICE DATE: 03/12/25 History Patient [...] chills, cough/URI. 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 - PAST SURGICAL HISTORY OF hysterectomy - PAST SURGICAL HISTORY OF Right 1989 tibialis anterior tendon - PAST SURGICAL HISTORY OF 2014 straightening pronated feet - PAST SURGICAL HISTORY OF Right 2021 total knee right - PAST SURGICAL HISTORY OF Left 05/2023 total reverse shoulder - REMOVAL GALLBLADDER - REMV CATARACT EXTRACAP,INSERT LENS Bilateral - S ANTERIOR TIBIALIS TENDON - TONSILLECTOMY AND ADENOIDECTOMY FAMILY HISTORY Problem Relation Age of Onset - Cancer Mother - Cerebral Embolism Father CVA, aneurysm, [place], - other (normal [Other]) Sister - None Sister - None Sister - Breast Cancer No Family History no known family h/o breast or ovarian cancer - Anesthesia Problems No Family History Social History[1] ALLERGIES Allergen Reactions - Keflex [Cephalexin] Hives - Penicillins Hives - Eliquis [Apixaban] Hives - Tree Nuts Anaphylaxis Review of Systems Constitutional: [...] Resp SpO2 Weight Height 144/83 75 36.9 ?C (98.4 ?F) Oral 22 97 % 79.1 kg (174 [...] upper lower extremities. Patient strength intact bilateral upper and lower extremities. Head: Atraumatic, no cephalhematomas. Nontender [...] Full range of motion, nontender to palpation, (more content not included)... Normal [facility] EKGon 03-12-2025 Electrocardiogram Ventricular Rate : 78 BPM Atrial Rate : 78 BPM P-R Interval : 174 ms QRS Duration : 92 ms Q-T Interval : 394 ms QTC Calculation(Bazett) : 449 ms Calculated P Clinton : 35 degrees Calculated R Clinton : -14 degrees Calculated T Clinton : 97 degrees SINUS RHYTHM WITH OCCASIONAL PREMATURE VENTRICULAR COMPLEXES POSSIBLE LEFT ATRIAL ENLARGEMENT CANNOT RULE OUT ANTERIOR INFARCT , AGE UNDETERMINED T WAVE ABNORMALITY, CONSIDER LATERAL ISCHEMIA ABNORMAL ECG No Stemi Confirmed by GABBY WOOTEN DO ([id number]) on 03/12/2025 9:22:56 PM NAME : CAROLINA GUTIERREZ PID : [id number] : 1960 Gender : Female Race : ORD : Procedure Date : Mar 12 2025 20:26:52 Edit Date : Mar 12 2025 21:22:58 Diagnosis: SINUS RHYTHM WITH OCCASIONAL PREMATURE VENTRICULAR COMPLEXES POSSIBLE LEFT ATRIAL ENLARGEMENT CANNOT RULE OUT ANTERIOR INFARCT , AGE UNDETERMINED T WAVE ABNORMALITY, CONSIDER LATERAL ISCHEMIA ABNORMAL ECG No Stemi Confirmed by GABBY WOOTEN DO ([id number]) on 03/12/2025 9:22:56 PM Test Reason : Location : 1 : ER ED Overread By : GABBY WOOTEN DO Edited By : GABBY WOOTEN DO Referred By : , Acquired by : kandi, Kelby [facility] HIGH SENSITIVITY TROPONIN T (INITIAL)on 03-12-2025 Troponin T.cardiac High sensitivity method [Mass/Vol] 8 ng/L Normal <12 [facility] Comment on above: Order Comment: Speci men Type: BLOOD SPECIMEN Ordering Facility: [facility] Address: [address] [place], [place] [id number] Performed By: #### L [id number], K1 #### [facility] CLIA [id number] [address] [place] [address] [place] HIGH SENSITIVITY TROPONIN T (SECOND)on 03-12-2025 Troponin T.cardiac High sensitivity method [Mass/Vol] 10 ng/L Normal <12 [facility] Comment on above: Order Comment: Speci men Type: BLOOD SPECIMEN Ordering Facility: [facility] Address: [address] [place] [address] Performed By: #### L [id number] #### [facility] CLIA [id number] [address] [place] [address] [place] Magnesium SerPl-mCncon 03-12 Magnesium [Mass/Vol] 1.9 mg/dL Normal 1.7-2.3 [facility] Comment on above: Order Comment: Speci men Type: BLOOD SPECIMEN Ordering Facility: [facility] Address: [address] [place], [place] [id number] Performed By: #### 1 9123-9, 68246-9 #### [facility] CLIA [id number] [address] [place] POTASSIUMon 03-12-2025 Potassium [Moles/Vol] 4.0 mmol/L Normal 3.7-5.1 [facility] Comment on above: Order Comment: Speci men Type: BLOOD SPECIMEN Ordering Facility: [facility] Address: [address] [place] [address] Performed By: #### L [id number], K1 #### [facility] CLIA [id number] [address] [place] [address] [place] XR KNEE 4V AP/LAT/OBLS LTon 03-12-2025 XR KNEE 4V AP/LAT/OBLS LT * * *Final Report* * * DATE [...] joint effusion. Soft tissues are grossly unremarkable. IMPRESSION: 1. Uncomplicated appearance of medial compartment arthroplasty. 2. Mild patellofemoral arthrosis. Project Product Manager: DEBBIE Transcribe Date/Time: Mar 12 2025 10:30P Dictated by : ANTONIO VELASQUEZ MD This examination was interpreted and the report reviewed and electronically signed by: ANTONIO VELASQUEZ MD on Mar 12 2025 10:33PM EST [id number] CN [facility] Heart and Vascular Office/Cl inic Noteon 02-22-2025 Heart and Vascular Office/Clinic Note Heart and Vascular Office/Clinic Note Chief Complaint 3 month F/U History of Present Illness Carolina is a 64 year old female with tachycardia. Holter monitor from 03/05/2024 showed an average heart rate of 105 bpm, no secondary arrhythmia detected and occasional SVE and VE's. Echo from 12/2023 showed normal EF of 60-65%, no significant valvular disease, normal LV and RV. Patient comes in for 3 month follow-up today. Reviewed prior Holter monitor, echo, nuc med stress test. At last visit, I saw patient at [facility] time she was continued on current medication. Patient reports that she has been doing pretty good overall since last visit. Patient reports that she has been doing better since increasing metoprolol to 75 mg ER daily. Patient reports that she has had little to no shortness of breath, even during activity since increasing the metoprolol. Her resting heart rate is a little low in the office today, but pt reports she has been feeling well and not having issues with lightheadedness or dizziness. Patient has not been monitoring heart rate at home since last visit. Patient is taking Lasix 20 daily for swelling to lower extremities. This has been doing well to keep her swelling at bay and she has not really noticed any lately. She is also taking a potassium supplementation to go with Lasix. Patient denies chest pain, heart palpitations, dizziness/lightheade dness. REVIEWED PRIOR NOTE FROM 11/11/2024: Patient comes in for 6-week follow-up today. Reviewed prior Holter monitor, echo, nuc med stress test. At last visit, I saw patient which time we increase metoprolol to 75mg QD tachycardia to see if this helps with some of her shortness of breath. Patient reports that she has been doing pretty good overall since last visit. Patient reports that she has been doing better since increasing metoprolol to 75 mg ER daily. Patient reports that she has had little to no shortness of breath, even during activity since increasing the metoprolol. Her resting heart rate is in the 70s and appears well-controlled at this time. Patient has not been monitoring heart rate at home since last visit. Patient is taking Lasix 20 daily for swelling to lower extremities. This has been doing well to keep her swelling at bay and she has not really noticed any lately. She is also taking a potassium supplementation to goal off Lasix. Patient denies chest pain, heart palpitations, dizziness/lightheade dness. Review of Systems PHQ Score Initial Depression Screen Score: 0 SCORE ROS - Provider Constitutional: no fever, no chills, no sweats, no weakness Respiratory: no shortness of breath, no cough Cardiovascular: no chest pain Neuro: no dizziness. no loss of consciousness Physical Exam Vitals & Measurements HR: 54(Peripheral) RR: 18 BP: 139/78 SpO2: 96% HT: 56 in HT: 142 cm WT: 172.842 lb WT: 78.4 kg BMI: 38.88 General: alert, no acute distress Cardiovascular: regular rate and rhythm, no murmur normal peripheral perfusion Respiratory: Lungs CTAB, respirations non labored Extremities: no edema left lower extremity. no edema right lower extremity Neurological: oriented x 4, LOC appropriate for age, speech normal Skin: Warm, dry, intact- no rash or concerning lesions Cardiac Diagnostics Holter monitor from 03/05/2024: 1. predominant rhythm was sinus rhythm/sinus tachycardia 2. Minimum heart rate 71 bpm, average heart rate 105 bpm, max heart rate 138 bpm 3. No secondary arrhythmia detected. 4. Total SVE's: 215 times (0.07%) including trigeminy, runs 3 of 4 beats with heart rate 252 bpm 5. Total VE's: 1639 times (0.55%) including couplets, trigeminy (01/06/2024 11:19 EDT Echo Transthoracic Complete) Interpretation Summary: Ejection Fraction = 60-65%. Normal LV and RV. No significant valve disease. Normal estimated PA pressure. Impaired diastolic relaxation. No changes from 2021. [1] (07/20/2022 12:01 EST [place] Myocardial Spect Rest/Stress 1 Day) CONCLUSIONS: 1. Normal, adequate Lexiscan/MPI. Negative for ischemia by electrocardiogram and myocardial perfusion imaging. 2. Normal TID of 1.01. 3. Normal LV size and function with an ejection fraction of 67%. 4. No anginal symptoms noted and rare premature ventricular contraction noted during recovery. 5. This is a low risk study. Assessment/Plan 1. Inappropriate sinus tachycardia (I47.11: Inappropriate sinus tachycardia, so stated) Patient has appropriate sinus tachycardia. Had a Holter monitor in 03/2024 which her average heart rate was 105. Patient currently taking metoprolol 75 mg ER daily and that has been working well for her. Patient reports that she has not had really any shortness of breath since last visit. She states that she has been able to walk as far as she wants without any significant issues like she was having previously. Her resting heart rate is in the 50s today, but pt still feeling well. Since SOB has improved, we will hold off on any ischemic evaluation at this time. Will get l (more content not included)... Normal [facility] Comment on above: Result Comment: Elec tronically Signed By: Antoinette SAMANO, Oswald Manning\.br\Date and Time Signed: 02/22/25 09:03 EDT Provider Letteron 02-19-2025 Provider Letter Santino Moran MD [facility] [place] [address] Re: Carolina Gutierrez Date of Visit: 02/08/2025 Dear Santino Moran MD, [facility] [address] [place] [address], [phone] Date: 02/19/2025 16:21:24 Thank you for referring Carolina Gutierrez who was seen on 01/08/2025 11:09:58. Please see attached note for further details and please call with any questions or concerns. _ Sincerely, [facility] Providers: The following document(s) were included in the letter: February 08, 2025 16:19:00 EDT - (02/08/2025) Office Visit Note CAA Kelby [facility] Noel 02-15-2025 CNOV Office Visit (JULI) MATTCAROLINA ([id number]) 1960 F Date Time Provider Department 02/15/25 7:40 AM STEVO NEFF During your visit today, we recorded the following information about you: Pulse Blood pressure Weight 85/minute 101/58 78 kg Stevo Neff MD 02/15/2025 7:55 AM Addendum May apply over the counter arthritis creams and or patches (biofreeze, icy hot, asper cream, tiger balm, capsacin, lidocaine, salon pas, voltaren gel, etc.) or over the counter pain patches to painful joints up to four times a day. Avoid contact with eyes. May take Extra Strength acetaminophen 500mg every 4-6hours for joint pain. Do not exceed 3000mg /day. Decrease stress Improve sleep May apply heat/ice 20minutes on and off to areas of pain Avoid aggravating triggers If needed, may take Calcium 1200mg daily with food in DIVIDED doses If labs normal, take Vitamin D 4000 International Units daily with food Celebrex with food for pain up to twice a day See ortho Rinvoq daily Please hold rinvoq if on antibiotics or if you have any signs/symptoms of infection. Recommend goal: exercising 30minutes 3-5 times a week Recommend weight-bearing aerobic exercises such as walking, dancing, low impact aerobics, elliptical machine, stair climbing, gardening, biking, water exercises flexibility exercises and strength training exercises Recommend avoiding high impact exercises such as jumping, running or jogging or movements where you bend forward and twist the waist, for instance- touching your toes, sit-ups, using row machine skilled nursing pain recommendations per primary care provider/pain clinic Increase water prior and 1week after prolia Prolia every 6months, last one ~summer 2021, Next bone mineral density after 11/14/25 Nonfasting labs as scheduled Thank you. 12/03/24 High alkaline phosphatase 131, esr 26;low hgb 11.2;normal rest of cbc, cmp, crp <0.3, vitamin D 68.1;negative hepatitis panel, quantiferon tb; [place] 11/15/23 osteopenia (was osteoporosis) L1-L4 1.238g/cm2, tscore 0.5; Dual fem mean 0.763g/cm2, tscore-2; Left fem total 0.817g/cm2, tscore1.6, zscore-0.7; Left total fem 0.843g/cm2, tscore-1.3, zscore-0.8; Left troch 0.807g/cm2, tscore -2.1, zscore -1.7; Right neck fem 0.713g/cm2, tscore-2.3, zscore-1.5; Left total fem 0.807g/cm2, tscore-1.6, zscore-1.1; Right troch 0.603g/cm2, tscore-2.2, zscore-1.7; 10/14/23 high esr 45, crp 3.4, DDimer 4180;negative synovial fluid crystals, quantiferon tb BONE MINERAL DENSITY PATIENT INSTRUCTIONS = Bone mineral density testing measures the amount of calcium in certain parts of your bones. This information determines how strong your bones are. The test is used to detect osteoporosis, a disease in which the bone's mineral content and density are low, increasing a person's risk of fractures. The lumbar spine (lower back) and the hip are the skeletal sites usually examined. For the test, remember that: 1. You cannot take this test if you are . 2. Eat a normal diet on the day of the test. 3. Take your medications as you normally would. 4. DO NOT take calcium supplements (such as Tums) for 24 hours before the test. 5. On the day of the test, leave valuables (jewelry or credit cards) at home. 6. The test should be performed prior to oral, rectal or IV contrast studies, or at least 7 days after any of these studies. For the test, you may be asked to wear a hospital gown. You will lie on your back, on a padded table, in a comfortable position. Generally, you can resume your usual activities immediately. Stevo Neff MD 02/15/2025 8:06 AM Signed Face to face Follow up for rheumatoid arthritis/+RF/low vitamin D/high crp ANDesr Today's visit 02/15/25:labs 03/2025. taking rinvoq, celebrex, vitamin D 1000 International Units daily with food, calcium, synthroid, zofran, inhalers, ozempic NO recent oral steroids. NO eye issues. Reports hairloss, dry mouth, nosebleed, sores in mouth 12/03/24 High alkaline phosphatase 131, esr 26;low hgb 11.2;normal rest of cbc, cmp, crp <0.3, vitamin D 68.1;negative hepatitis panel, quantiferon tb; [place] 11/15/23 osteopenia (was osteoporosis) Summer 2023 pneumonia 10/14/23 saw ortho drained left shoulder (pain in Left shoulder x 5months, since replacement) may proceed with shoulder revision if no infection. 10/14/23 high esr 45, crp 3.4, DDimer 4180;negative synovial fluid crystals, quantiferon quantiferon tb Still working. Due for cruise in 03/2025 [facility]. 100% improvement from rinvoq. Walking for exercise. Legs/feet swelling in AM, better with lasix. Chronic current pain in both hands, knees, ankles. Worse in rainy weather or wintertime. Reports pain /10. Has minimal AM stiffness. Feels safe at home. Has enough food, supplies and medications. Overall mil (more content not included)... Normal [facility] 02-11-2025 L Specimen: [id number] Received: 02/12/25 Status: DYLON Gamboa Num: [id number] Spec Type: Surgical Subm Dr: Ze Francois MD Tissues: A Skin-Other than Cyst, tag, debridement or plastic repair (RIGHT LOWER LEG) Procedures: Emily DESIR/Micro L4 Age/ Patient Sex Location Account Attending Physician Carolina Gutierrez 64/F MALORIE [id number] Ze Francois MD SPEC NUM: [id number] RECD: 02/12/25 STATUS: DYLON GAMBOA NUM: [id number] ZOEY: 02/11/[address]: Ze Francois MD ENTERED: 02/12/[address]: SPEC TYPE: Surgical DEPT: S ORDERED: HE/3, Gross/Micro L4 ORDERED: , Gross/Micro L4 Pathological Diagnosis Right lower leg: Skin with severe solar elastosis and fibrosis; negative for residual squamous cell carcinoma. 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 Eccentrically located on the skin is a santiago-pink smooth scar, 0.7 x 0.8 cm that is situated 0.2 cm from the closest margin and outlined by a circumferential rim of blue dye. One half of the specimen is inked black with the opposing half inked green. Serial sections reveal yellow-evans, glistening, uniform cut surfaces with a deep margin situated 0.5 cm from the scar. The polar tips are bisected and entirely submitted in A1 with the serially section center of the specimen submitted in A2?A3. (3, ns, [id number] A) Microscopic Description Microscopic examination was completed. CPT Codes 81970 Specimen: [id number] Received: 02/12/25 Status: DYLON Gamboa Num: [id number] Spec Type: Surgical Subm Dr: Ze Francois MD Tissues: A Skin-Other than Cyst, tag, debridement or plastic repair (RIGHT LOWER LEG) Procedures: DEVANDebora, Gross/Micro L4 Patient: Carolina Gutierrez [id number] (Continued) Signed (signature on file) Ruthie Rose JR, MD 02/15/25 1333 Normal [facility] Podiatry Office/Clinic Noteo n 02-08-2025 Podiatry Office/Clinic Note The content of this note was generated by an artificial intelligence (AI) language dictation. The patient or guardian has given their consent for the use of AI technology during the visit to capture and process the conversation. The AI will assist in providing information and support throughout the discussion. The AI will not store personal or sensitive information beyond the scope of this session, and the purpose is solely to facilitate the conversation. History of Present Illness The content of this note was generated by an artificial intelligence (AI) language dictation. The patient or guardian has given their consent for the use of AI technology during the visit to capture and process the conversation. The AI will assist in providing information and support throughout the discussion. The AI will not store personal or sensitive information beyond the scope of this session, and the purpose is solely to facilitate the conversation. The patient is a 64-year-old female with a history of left foot fusion and neuropathy, presenting with worsening left foot nerve pain. Left Foot Nerve Pain and Neuropathy The patient reports worsening nerve pain in her left foot since undergoing a fusion procedure. The pain is described as a 'needles' sensation that travels from the left side to the right and up the big toe, mainly affecting the top and outside of the foot. Symptoms are intermittent but have become more frequent, now occurring every other night and often disrupting her sleep. She notes the pain comes and goes and is sometimes associated with swelling at the bottom of the foot when wearing sandals. She previously underwent an EMG and received injections in the same area, which provided only short-term relief. She also had a ganglion cyst in the foot prior to her first surgery. For symptom management, she uses a compounding cream and rbqv-[id number]-[id number] nerve vitamins, which she finds helpful, as missing doses worsens her symptoms. She previously tried gabapentin without significant benefit. She denies any history of back surgery or injections and does not smoke. Ingrown Toenail The patient reports pain around the nail of her left big toe. She denies drainage and has no prior history of ingrown toenails. The area is currently painful. Other Foot Complaints The patient notes a downward deviation of the toe next to her big toe, which she suspects may be a hammer toe. She has a history of multiple foot surgeries and is aware of the need to monitor her feet daily due to neuropathy and structural changes. She also experiences intermittent pain at the bottom of her left foot, which is less bothersome than her nerve pain and has improved over time. She reports swelling at the bottom of the foot when wearing sandals. Review of Systems Musculoskeletal: Positive for nerve pain in foot, pain in big toe, pain in bottom of foot, and hammer toe. Skin: Positive for ingrown toenail and swelling in foot. Negative for drainage around nail. Neurological: Negative for numbness, tingling, burning, and shooting pain. Ten point ROS completed as noted per HPI, all other systems are negative Physical Exam Extremities: Ingrown toenail observed Hammer toe deformity observed Musculoskeletal: No pain radiating to hallux or second toe No paresthesia, burning, or shooting pain No tenderness on palpation of examined areas Ankle arthritis noted Additional Vitals No qualifying data available. Assessment and Plan: Patient is a 64-year-old female with a history of foot fusion surgery and prior nerve issues presenting today for evaluation of worsening nerve pain in the left foot. 1. 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 -Radiographs reviewed as above. Recommend activity modification and discussed shoe gear extensively. Discussed diagnostic injection, deferred until after imaging/EMG Recommend nerve vitamins: Vitamin C, vitamin B12, vitamin B6, folic acid. Handout given for nerve vitamins. Instructed on use. Left ankle MRI ordered to rule out space-occupying lesion and other soft tissue pathologies about the left ankle. EMG ordered to rule out lumbar radiculopathy and evaluate the deep peroneal nerve above below and at the level of the ankle joint. Discussed potential need for surgical decompression of nerve entrapment pending work-up/imaging Patient return to clinic after obtaining imaging/EMG. No radiographs needed at next visit. 2. Lumbar radiculopathy 3. Ingrown nail 4. Hammer toe of left foot 5. Retained orthopedic hardware Reviewed clinic notes and operative notes from Dr. Pinedo 6. Neuritis of left foot 7. Pain in left foot (more content not included)... Normal [facility] XR Ankle 2 Views Left 01-29 XR Ankle 2 Views Left 2 views left ankle demonstrate: Valgus malalignment of the ankle noted with joint space narrowing at the lateral aspect of the ankle joint and subchondral sclerosis. No cystic changes noted. Partial visualization of the hardware across the subtalar joint medial column. No failure or radiolucency surrounding the hardware on these views. No other foreign bodies noted. No acute fractures or dislocations noted. No increase in soft tissue volume, density, or edema noted. No increase in medial clear space noted. Final Signed by: Maurice Werner DPM Signed (Electronic Signature): 02/08/2025 2:43 pm Transcribed DT/TM: 02/08/2025 2:43 (If Report Is Signed, Electronically Signed in Other Vendor System) Normal [facility] XR Foot 3 Views Lefton 02-08 XR Foot 3 Views Left 3 weightbearing views left foot demonstrate: Loss of talar height noted. Osteophyte formation noted at the dorsal midfoot. Hardware demonstrated across the medial column and subtalar joint fusion sites with no backing out failure hardware noted. Cotton osteotomy metal wedge noted with mild displacement or failure hardware noted. Contracture lesser digits noted. Prior arthroplasty fifth digit noted proximal phalanx. No increase in soft tissue volume, density, or edema noted. No acute fracture dislocations noted. No other foreign bodies noted. No increase in soft tissue calcifications noted. Final Signed by: Maurice Werner DPM Signed (Electronic Signature): 02/08/2025 3:20 pm Transcribed DT/TM: 02/08/2025 3:20 (If Report Is Signed, Electronically Signed in Other Vendor System) Normal [facility] No Panel InformationOrdered By: Ze Francois on 12-23-2024 Miscellaneous Pathology Test See comment [facility] Comment on above: See report. Scanned copy available in EMR. Pathology Request for Lab Co rpon 12-23-2024 Pathology Request for Lab Sheyla Normal [facility] Comment on above: Order Comment: SKIN SPECIMEN Result Comment: See report. Scanned copy available in EMR. PERFORMED BY: [address] [place] [address] PATHOLOGIST TRAVEL CONSULTANT HENRRY PATEL M.D. Performed By: #### P ATH TO [facility] #### [address] 25(OH)D3 SerPl-mCncon 2024 25-hydroxyvitamin D3 [Mass/Vol] 68.1 ng/mL Normal 31.0-80.0 [facility] Comment on above: Order Comment: Speci men Type: BLOOD SPECIMEN Ordering Facility: [facility] Address: [address] [place] [address] Result Comment: Clas sification of 25 [place] Vitamin D status: Deficiency/Insufficiency: < or = 30 ng/ml. Sufficiency/Optimal Levels: 31-80 ng/mL Toxicity: > 100 ng/mL. Test performed by chemiluminescent immunoassay. Performed By: #### 4 537-7 #### [facility] CLIA [id number] [address] [place] [address] [place] [address] [place] BLOOD TB SCREENon 12-03-2024 M. tuberculosis tuberculin stim IFN-g Ql (Bld) Negative Normal [facility] Comment on above: Order Comment: Speci men Type: BLOOD SPECIMEN Ordering Facility: [facility] Address: [address] [place] [address] Performed By: #### 4 537-7 #### [facility] CLIA [id number] [address] [place] [address] [place] MITOGEN MINUS NIL 1.10 IU/mL Normal >=0.50 [facility] Comment on above: Order Comment: Speci men Type: BLOOD SPECIMEN Ordering Facility: [facility] Address: [address] [place] [address] Performed By: #### 4 537-7 #### [facility] CLIA [id number] [address] [place] [address] [place] [facility] TB GAMMA INTERPRETATION Infection with M. tuberculosis complex is unlikely. If latent tuberculosis infection is highly suspected, a negative result does not rule out the infection. Specimens from immunocompromised patients and those <5 years of age may show false negative results. In case of a contact investigation, please repeat 8-12 weeks after a known exposure. Normal [facility] Comment on above: Order Comment: Speci men Type: BLOOD SPECIMEN Ordering Facility: [facility] Address: [address] [place] [address] Performed By: #### 4 537-7 #### [facility] CLIA [id number] [address] [place] [address] [place] [facility] [place] TB NIL 0.07 IU/mL Normal <=8.00 [facility] Comment on above: Order Comment: Speci men Type: BLOOD SPECIMEN Ordering Facility: [facility] Address: [address] [place] [address] Performed By: #### 4 537-7 #### [facility] CLIA [id number] [address] [place] [address] [place] TB1 AG MINUS NIL 0.00 IU/mL Normal <0.35 [facility] Comment on above: Order Comment: Speci men Type: BLOOD SPECIMEN Ordering Facility: [facility] Address: [address] [place] [address] Performed By: #### 4 537-7 #### [facility] CLIA [id number] [address] [place] [address] [place] TB2 AG MINUS NIL <0.00 Normal <0.35 [facility] Comment on above: Order Comment: Speci men Type: BLOOD SPECIMEN Ordering Facility: [facility] Address: [address] [place] [address] Performed By: #### 4 537-7 #### [facility] CLIA [id number] [address] [place] [address] [place] CBC panel Auto (Bld)on 12-03 Erythrocyte distribution width (RBC) [Ratio] 14.7 % Normal 11.5-15.0 [facility] Comment on above: Order Comment: Speci men Type: BLOOD SPECIMEN Ordering Facility: [facility] Address: [address] [place] [address] Performed By: #### 2 4321-2 #### [facility] CLIA [id number] [address] [place] [address] [place] Hematocrit (Bld) [Volume fraction] 35.1 % Low 36.0-46.0 [facility] Comment on above: Order Comment: Speci men Type: BLOOD SPECIMEN Ordering Facility: [facility] Address: [address] [place] [address] Performed By: #### 2 4321-2 #### [facility] CLIA [id number] [address] [place] [address] [place] Hemoglobin (Bld) [Mass/Vol] 11.2 g/dL Low 11.5-15.5 [facility] Comment on above: Order Comment: Speci men Type: BLOOD SPECIMEN Ordering Facility: [facility] Address: [address] [place] [address] Performed By: #### 2 4321-2 #### [facility] CLIA [id number] [address] [place] [address] [place] MCH (RBC) [Entitic mass] 28.4 pg Normal 26.0-34.0 [facility] Comment on above: Order Comment: Speci men Type: BLOOD SPECIMEN Ordering Facility: [facility] Address: [address] [place] [address] Performed By: #### 2 4321-2 #### [facility] CLIA [id number] [address] [place] [address] [place] MCHC (RBC) [Mass/Vol] 31.9 g/dL Normal 30.5-36.0 [facility] Comment on above: Order Comment: Speci men Type: BLOOD SPECIMEN Ordering Facility: [facility] Address: [address] [place] [address] Performed By: #### 2 4321-2 #### [facility] CLIA [id number] [address] [place] [address] [place] MCV (RBC) [Entitic vol] 88.9 fL Normal 80.0-100.0 [facility] Comment on above: Order Comment: Speci men Type: BLOOD SPECIMEN Ordering Facility: [facility] Address: [address] [place] [address] Performed By: #### 2 4321-2 #### [facility] CLIA [id number] [address] [place] [address] [place] Nucleated RBC (Bld) [#/Vol] 10*3/uL Normal <0.01 [facility] Comment on above: Order Comment: Speci men Type: BLOOD SPECIMEN Ordering Facility: [facility] Address: [address] [place] [address] Performed By: #### 2 4321-2 #### [facility] CLIA [id number] [address] [place] [address] [place] Platelet mean volume (Bld) [Entitic vol] 9.1 fL Normal 9.0-12.7 [facility] Comment on above: Order Comment: Speci men Type: BLOOD SPECIMEN Ordering Facility: [facility] Address: [address] [place] [address] Performed By: #### 2 4321-2 #### [facility] CLIA [id number] [address] [place] [address] [place] Platelets (Bld) [#/Vol] 311 10*3/uL Normal 150-400 [facility] Comment on above: Order Comment: Speci men Type: BLOOD SPECIMEN Ordering Facility: [facility] Address: [address] [place] [address] Performed By: #### 2 4321-2 #### [facility] CLIA [id number] [address] [place] [address] [place] RBC (Bld) [#/Vol] 3.95 10*6/uL Normal 3.90-5.20 [facility] Comment on above: Order Comment: Speci men Type: BLOOD SPECIMEN Ordering Facility: [facility] Address: [address] [place] [address] Performed By: #### 2 4321-2 #### [facility] CLIA [id number] [address] [place] [address] [place] WBC (Bld) [#/Vol] 8.68 10*3/uL Normal 3.70-11.00 [facility] Comment on above: Order Comment: Speci men Type: BLOOD SPECIMEN Ordering Facility: [facility] Address: [address] [place] [address] Performed By: #### 2 4321-2 #### [facility] CLIA [id number] [address] [place] [address] [place] CRP SerPl-mCncon 12-03-2024 CRP [Mass/Vol] mg/L Normal <0.9 [facility] Comment on above: Order Comment: Speci men Type: BLOOD SPECIMENOrdering Facility: [facility] Address: [address] [place] [address] Performed By: #### 1 988-5 ####[facility] [id number] [place] [address] [place] Comprehensive metabolic 2000 panelon 12-03-2024 Albumin [Mass/Vol] 3.9 g/dL Normal 3.9-4.9 [facility] Comment on above: Order Comment: Speci men Type: BLOOD SPECIMEN Ordering Facility: [facility] Address: [address] [place] [address] Performed By: #### 4 537-7 #### [facility] CLIA [id number] [address] [place] [address] [place] ALP [Catalytic activity/Vol] 131 U/L High 34-123 [facility] Comment on above: Order Comment: Speci men Type: BLOOD SPECIMEN Ordering Facility: [facility] Address: [address] [place] [address] Performed By: #### 4 537-7 #### [facility] CLIA [id number] [address] [place] [address] [place] ALT [Catalytic activity/Vol] 15 U/L Normal 7-38 [facility] Comment on above: Order Comment: Speci men Type: BLOOD SPECIMEN Ordering Facility: [facility] Address: [address] [place] [address] Performed By: #### 4 537-7 #### [facility] CLIA [id number] [address] [place], [place] [id number] [place] Anion gap [Moles/Vol] 14 mmol/L Normal 8-15 [facility] Comment on above: Order Comment: Speci men Type: BLOOD SPECIMEN Ordering Facility: [facility] Address: [address] [place] [address] Performed By: #### 4 537-7 #### [facility] CLIA [id number] [address] [place] [address] [place] AST [Catalytic activity/Vol] 25 U/L Normal 13-35 [facility] Comment on above: Order Comment: Speci men Type: BLOOD SPECIMEN Ordering Facility: [facility] Address: [address] [place] [address] Performed By: #### 4 537-7 #### [facility] CLIA [id number] [address] [place] [address] [place] Bilirubin [Mass/Vol] 0.7 mg/dL Normal 0.2-1.3 [facility] Comment on above: Order Comment: Speci men Type: BLOOD SPECIMEN Ordering Facility: [facility] Address: [address] [place] [address] Performed By: #### 4 537-7 #### [facility] CLIA [id number] [address] [place] [address] [place] Calcium [Mass/Vol] 10.2 mg/dL Normal 8.5-10.2 [facility] Comment on above: Order Comment: Speci men Type: BLOOD SPECIMEN Ordering Facility: [facility] Address: [address] [place] [address] Performed By: #### 4 537-7 #### [facility] CLIA [id number] [address] [place] [address] [place] Chloride [Moles/Vol] 102 mmol/L Normal 98-107 [facility] Comment on above: Order Comment: Speci men Type: BLOOD SPECIMEN Ordering Facility: [facility] Address: [address] [place] [address] Performed By: #### 4 537-7 #### [facility] CLIA [id number] [address] [place] [address] [place] CO2 [Moles/Vol] 24 mmol/L Normal 22-30 [facility] Comment on above: Order Comment: Speci men Type: BLOOD SPECIMEN Ordering Facility: [facility] Address: [address] [place] [address] Performed By: #### 4 537-7 #### [facility] CLIA [id number] [address] [place] [address] [place] [facility] Creatinine [Mass/Vol] 0.75 mg/dL Normal 0.58-0.96 [facility] Comment on above: Order Comment: Lorene montano Type: BLOOD SPECIMEN Ordering Facility: [facility] Address: [address] [place] [address] Performed By: #### 4 537-7 #### [facility] CLIA [id number] [address] [place] [address] [place] Creatinine and Glomerular filtration rate.predicted panel (S/P/Bld) 88 mL/min/1.73m??? Normal >=60 [facility] Comment on above: Order Comment: Lorene montano Type: BLOOD SPECIMEN Ordering Facility: [facility] Address: [address] [place] [address] Result Comment: Katlyn mated Glomerular Filtration Rate (eGFR) is calculated using the 2020 CKD-EPI creatinine equation. This equation utilizes serum creatinine, sex, and age as parameters. The creatinine assay has traceable calibration to isotope dilution-mass spectrometry. Refer to KDIGO guidelines for clinical interpretation. In patients with unstable renal function, e.g. those with acute kidney injury, the eGFR may not accurately reflect actual GFR. Performed By: #### 4 537-7 #### [facility] CLIA [id number] [address] [place] [address] [place] Glucose [Mass/Vol] 91 mg/dL Normal 74-99 [facility] Comment on above: Order Comment: Lorene charmaine Type: BLOOD SPECIMEN Ordering Facility: [facility] Address: [address] [place] [address] Result Comment: The [place] Diabetes Association (ADA) provides guidance for cutoff [...] Standards of Medical Care in Diabetes 2016, [place] [employer]. Diabetes Care. 2016.39(Suppl 1). Performed By: #### 4 537-7 #### [facility] CLIA [id number] [address] [place] [address] [place] Potassium [Moles/Vol] 4.3 mmol/L Normal 3.7-5.1 [facility] Comment on above: Order Comment: Lorene montano Type: BLOOD SPECIMEN Ordering Facility: [facility] Address: [address] [place] [address] Performed By: #### 4 537-7 #### [facility] CLIA [id number] [address] [place] [address] [place] Protein [Mass/Vol] 6.8 g/dL Normal 6.3-8.0 [facility] Comment on above: Order Comment: Lorene montano Type: BLOOD SPECIMEN Ordering Facility: [facility] Address: [address] [place] [address] Performed By: #### 4 537-7 #### [facility] CLIA [id number] [address] [place] [address] [place] Sodium [Moles/Vol] 140 mmol/L Normal 136-144 [facility] Comment on above: Order Comment: Lorene montano Type: BLOOD SPECIMEN Ordering Facility: [facility] Address: [address] [place] [address] Performed By: #### 4 537-7 #### [facility] CLIA [id number] [address] [place] [address] [place] Urea nitrogen [Mass/Vol] 17 mg/dL Normal 7-21 [facility] Comment on above: Order Comment: Speci men Type: BLOOD SPECIMEN Ordering Facility: [facility] Address: [address] [place] [address] Performed By: #### 4 537-7 #### [facility] CLIA [id number] [address] [place] [address] [place] ESR Westergren method (Bld) [Velocity]on 12-03-2024 ESR (Bld) [Velocity] 26 mm/h High 0-20 [facility] Comment on above: Order Comment: Speci men Type: BLOOD SPECIMEN Ordering Facility: [facility] Address: [address] [place] [address] Performed By: #### 4 537-7 #### [facility] CLIA [id number] [address] [place] [address] [place] HBV core Ab Ser Qlon 025 HBV core Ab Ql (S) Negative Normal Negative [facility] Comment on above: Order Comment: Speci men Type: BLOOD SPECIMEN Ordering Facility: [facility] Address: [address] [place] [address] Result Comment: No e vidence of current or past infection with Hepatitis B virus. Should recent infection be suspected, repeat testing may be considered 3-4 weeks after this draw. Performed By: #### 4 537-7 #### [facility] CLIA [id number] [address] [place] [address] [place] HBV surface Ab Ql (S)on HBV surface Ab Qn (S) <8.00 Normal [facility] Comment on above: Order Comment: Trinidadi men Type: BLOOD SPECIMEN Ordering Facility: [facility] Address: [address] [place] [address] Result Comment: <8 m IU/mL: No serological evidence of immunity to Hepatitis B Virus. >/= 8 to <12 mIU/mL: No serological evidence of immunity to Hepatitis B Virus. >/= 12 mIU/mL: Consistent with serological evidence of immunity to Hepatitis B Virus. Performed By: #### 4 537-7 #### [facility] CLIA [id number] [address] [place] [address] [place] HBV surface Ab Ser Qlon HBV surface Ab Ql (S) Negative Normal [facility] Comment on above: Order Comment: Speci men Type: BLOOD SPECIMEN Ordering Facility: [facility] Address: [address] [place] [address] Result Comment: No s erological evidence of immunity to Hepatitis B Virus. Performed By: #### 4 537-7 #### [facility] CLIA [id number] [address] [place] [address] [place] HBV surface Ag Ser Qlon HBV surface Ag Ql (S) Negative Normal Negative [facility] Comment on above: Order Comment: Speci men Type: BLOOD SPECIMEN Ordering Facility: [facility] Address: [address] [place] [address] Performed By: #### 4 537-7 #### [facility] CLIA [id number] [address] [place] [address] HCV Ab Ser Qlon 12-03-2024 HCV Ab Ql (S) Negative Normal Negative [facility] Comment on above: Order Comment: Speci men Type: BLOOD SPECIMEN Ordering Facility: [facility] Address: [address] [place] [address] Result Comment: The result suggests no evidence of infection with Hepatitis C virus. Should recent infection be suspected, repeat testing may be considered 4-6 weeks after this draw. Performed By: #### 2 4321-2 #### [facility] CLIA [id number] [address] [place] [address] [place] X-ray reportOrdered By: Vicente Lopez on 11-20-2024 Study report [facility] [address] [place] [address] XRay Report Signed Patient: Alt[place]ina A MR#: [id number] : 1960 Acct:[id number] Age/Sex: 64 / F ADM Date: 5 Loc: XDUCLY Room: Type: [facility] CLI Attending Dr: Siomara Moreland [employer] Copies to: Siomara Moreland APRN~ Ordering Provider: Siomara Moreland APRN Date of Service: 11/20/24 XR/XR knee LT 4V*: LEFT KNEE PAIN 4 views left knee plain film COMPARISON: None HISTORY: Fell injuring left knee ACUTE FINDINGS: No acute findings DEGENERATIVE CHANGE: Mild SOFT TISSUE FINDINGS: Unremarkable JOINT EFFUSION: None POSTOP CHANGES: Partial medial left knee arthroplasty. No hardware failure. BONE MINERALIZATION: Adequate XR/XR knee LT 4V* IMPRESSION: No acute displaced fracture Impression dictated by: Jose A Lopez M.D. 11/20/2024 5:43 PM Dictation Location: [place] [address] Transcribed By: [facility] 11/20/241742 Dictated By: Jose A Lopez DO 11/20/241741 Signed By: 11/20/24 1743 [facility] XR knee LT 4V*on 11-20-2024 XR knee LT 4V* [facility] [place] [address] XRay Report Signed Patient: Carolina Gutierrez MR#: [id number] : 1960 Acct:[id number] Age/Sex: 64 / F ADM Date: 11/20/24 Loc: XDUC Room: Type: [facility] CLI Attending Dr: Siomara Moreland [employer] Copies to: Siomara Moreland APRN Ordering Provider: Siomara Moreland APRN Date of Service: 11/20/24 XR/XR knee LT 4V*: LEFT KNEE PAIN 4 views left knee plain film COMPARISON: None HISTORY: Fell injuring left knee ACUTE FINDINGS: No acute findings DEGENERATIVE CHANGE: Mild SOFT TISSUE FINDINGS: Unremarkable JOINT EFFUSION: None POSTOP CHANGES: Partial medial left knee arthroplasty. No hardware failure. BONE MINERALIZATION: Adequate XR/XR knee LT 4V* IMPRESSION: No acute displaced fracture Impression dictated by: Jose A Lopez M.D. 11/20/2024 5:43 PM Dictation Location: [facility]--20 Transcribed By: [facility] 11/20/241742 Dictated By: Jose A Lopez DO 11/20/241741 Signed By: 11/20/241742 Normal [facility] Heart and Vascular Office/Cl inic Noteon 11-11-2024 Heart and Vascular Office/Clinic Note Heart and Vascular Office/Clinic Note Chief Complaint 6 week f/u sob; sinus tachy History of Present Illness Carolina is a 64 year old female with tachycardia. Holter monitor from 03/05/2024 showed an average heart rate of 105 bpm, no secondary arrhythmia detected and occasional SVE and VE's. Echo from 12/2023 showed normal EF of 60-65%, no significant valvular disease, normal LV and RV. Patient comes in for 6-week follow-up today. Reviewed prior Holter monitor, echo, nuc med stress test. At last visit, I saw patient which time we increase metoprolol to 75mg QD tachycardia to see if this helps with some of her shortness of breath. Patient reports that she has been doing pretty good overall since last visit. Patient reports that she has been doing better since increasing metoprolol to 75 mg ER daily. Patient reports that she has had little to no shortness of breath, even during activity since increasing the metoprolol. Her resting heart rate is in the 70s and appears well-controlled at this time. Patient has not been monitoring heart rate at home since last visit. Patient is taking Lasix 20 daily for swelling to lower extremities. This has been doing well to keep her swelling at bay and she has not really noticed any lately. She is also taking a potassium supplementation to goal off Lasix. Patient denies chest pain, heart palpitations, dizziness/lightheade dness. REVIEWED PRIOR NOTE FROM 09/28/2024: Patient comes in for 3-month follow-up today on inappropriate sinus Tachycardia. Reviewed prior Holter monitor, echo, nuc med stress test. At last visit, I saw patient at which time she was continued on metoprolol 50 mg ER daily for tachycardia. Patient reports that she has been doing pretty good overall since last visit. However, she states that she is still having issues with shortness of breath with exertion. She states that it is better since we increase metoprolol to 50 mg ER daily, but it is still noticeable. Patient reports that she can only walk about half a mile before she has to stop and catch her breath. Patient reports that she usually has to rest for about 5 minutes before she can continue. Patient is taking Lasix 20 daily for swelling to lower extremities. This has been doing well to keep her swelling at bay and she has not really noticed any lately. She is also taking a potassium supplementation to goal off Lasix. Patient denies chest pain, heart palpitations, dizziness/lightheade dness. Review of Systems PHQ Score Initial Depression Screen Score: 0 SCORE ROS - Provider Constitutional: no fever, no chills, no sweats, no weakness Respiratory: no shortness of breath, no cough Cardiovascular: no chest pain Neuro: no dizziness. no loss of consciousness Physical Exam Vitals & Measurements HR: 75(Peripheral) RR: 16 BP: 120/60 SpO2: 96% HT: 142 cm HT: 56 in WT: 81.2 kg WT: 179.015 lb BMI: 40.27 General: alert, no acute distress Cardiovascular: regular rate and rhythm, no murmur normal peripheral perfusion Respiratory: Lungs CTAB, respirations non labored Extremities: no edema left lower extremity. no edema right lower extremity Neurological: oriented x 4, LOC appropriate for age, speech normal Skin: Warm, dry, intact- no rash or concerning lesions Cardiac Diagnostics Holter monitor from 03/05/2024: 1. predominant rhythm was sinus rhythm/sinus tachycardia 2. Minimum heart rate 71 bpm, average heart rate 105 bpm, max heart rate 138 bpm 3. No secondary arrhythmia detected. 4. Total SVE's: 215 times (0.07%) including trigeminy, runs 3 of 4 beats with heart rate 252 bpm 5. Total VE's: 1639 times (0.55%) including couplets, trigeminy (01/06/2024 11:19 EDT Echo Transthoracic Complete) Interpretation Summary: Ejection Fraction = 60-65%. Normal LV and RV. No significant valve disease. Normal estimated PA pressure. Impaired diastolic relaxation. No changes from 2021. [1] (07/20/2022 12:01 EST [place] Myocardial Spect Rest/Stress 1 Day) CONCLUSIONS: 1. Normal, adequate Lexiscan/MPI. Negative for ischemia by electrocardiogram and myocardial perfusion imaging. 2. Normal TID of 1.01. 3. Normal LV size and function with an ejection fraction of 67%. 4. No anginal symptoms noted and rare premature ventricular contraction noted during recovery. 5. This is a low risk study. Assessment/Plan 1. Inappropriate sinus tachycardia (I47.11: Inappropriate sinus tachycardia, so stated) Patient has appropriate sinus tachycardia. Had a Holter monitor in 03/2024 which her average heart rate was 105. Patient currently taking metoprolol 75 mg ER daily (increased at last visit). Patient reports that she has not had really any shortness of breath since last visit. She states that she has been able to walk as far as she wants without any significant issues like she was having previously. Her resting heart rate is still in the 70s and appears well-controlled at this time and thinking that she is not going as high during exercise, which is hel (more content not included)... Normal [facility] Comment on above: Result Comment: Elec tronically Signed By: Antoinette SAMANO, Oswald Manning\.dusty\Date and Time Signed: 11/11/24 16:01 EDT Leonardo 10-28-2024 L Specimen: [id number] Received: 10/29/24 Status: DYLON Gamboa Num: [id number] Spec Type: Surgical Subm Dr: Ze Francois MD Tissues: A Skin-Other than Cyst, tag, debridement or plastic repair (LEFT LOWER LEG) Procedures: HE/3, Gross/Micro L4 Age/ Patient Sex Location Account Attending Physician Carolina Gutierrez 63/F [place] [id number] Ze Francois MD SPEC NUM: [id number] RECD: 10/29/24 STATUS: DYLON GAMBOA NUM: [id number] ZOEY: 10/28/[address] [facility] [address]: Ze Francois MD ENTERED: 10/29/[address]: TRINIDAD TYPE: Surgical DEPT: S ENTERED BY: [id number] RECV BY: [id number] ORDERED: HE/3, Gross/Micro L4 ORDERED: HE/3, Gross/Micro L4 Pathological Diagnosis A. 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 Eccentrically located on the skin is a pale pink scar, 0.9 x 0.6 cm that is situated 0.3 cm from the closest margin. One half of the specimen is inked green with the opposing half inked black. Serial sections reveal santiago-evans to yellow, glistening and uniform cut surfaces with the deep margin situated 0.3 cm from the scar. The bisected polar tips are submitted in A1 with the serially section center of the specimen submitted in A2?A3. (2, ns, [id number] A)[place]QUETA Specimen: [id number] Received: 10/29/24 Status: DYLON Cooper Num: [id number] Spec Type: Surgical Subm Dr: Ze Francois MD Tissues: A Skin-Other than Cyst, tag, debridement or plastic repair (LEFT LOWER LEG) Procedures: HE/3, Gross/Micro L4 Patient: Carolina Gutierrez [id number] (Continued) Specimen: [id number] Received: 10/29/24 (Continued) Signed (signature on file) Judah Cochran Jr., MD 11/02/24 8538 Specimen: Received: 10/29/24 Status: DYLON Gamboa Num: [id number] Spec Type: Surgical Subm Dr: Ze Francois MD Tissues: A Skin-Other than Cyst, tag, debridement or plastic repair (LEFT LOWER LEG) Procedures: HE/3, Gross/Micro L4 Patient: Carolina Gutierrez [id number] (Continued) Specimen: Received: 10/29/24 (Continued) CPT Codes 78809 Specimen: [id number] Received: 10/29/24 Status: DYLON Gamboa Num: [id number] Spec Type: Surgical Subm Dr: Ze Francois MD Tissues: A Skin-Other than Cyst, tag, debridement or plastic repair (LEFT LOWER LEG) Procedures: HE/3, Gross/Micro L4 Patient: Carolina Gutierrez [id number] (Continued) Signed (signature on file) Judah Cochran Jr., MD 11/02/24 0125 Normal [facility] Heart and Vascular Office/Cl inic Noteon 09-28-2024 Heart and Vascular Office/Clinic Note Heart and Vascular Office/Clinic Note Chief Complaint 3 months f/u Inappropriate sinys tachycardia History of Present Illness Carolina is a 63 year old female with tachycardia. Holter monitor from 03/05/2024 showed an average heart rate of 105 bpm, no secondary arrhythmia detected and occasional SVE and VE's. Echo from 12/2023 showed normal EF of 60-65%, no significant valvular disease, normal LV and RV. Patient comes in for 3-month follow-up today on inappropriate sinus Tachycardia. Reviewed prior Holter monitor, echo, nuc med stress test. At last visit, I saw patient at which time she was continued on metoprolol 50 mg ER daily for tachycardia. Patient reports that she has been doing pretty good overall since last visit. However, she states that she is still having issues with shortness of breath with exertion. She states that it is better since we increase metoprolol to 50 mg ER daily, but it is still noticeable. Patient reports that she can only walk about half a mile before she has to stop and catch her breath. Patient reports that she usually has to rest for about 5 minutes before she can continue. Patient is taking Lasix 20 daily for swelling to lower extremities. This has been doing well to keep her swelling at bay and she has not really noticed any lately. She is also taking a potassium supplementation to goal off Lasix. Patient denies chest pain, heart palpitations, dizziness/lightheade dness. REVIEWED PRIOR NOTE FROM 06/23/2024: Patient comes in for 3-month follow-up today. At last visit, i saw patient at which time her metoprolol was increased to 50 mg ER daily from 25 mg ER daily. Patient reports that the increase in metoprolol has helped her symptoms overall. She states that she does still have some mild shortness of breath, but it is better than it was prior to the increase in metoprolol. Patient reports that she sometimes feels her heart racing right now, but that is usually just with walking long distances and not any other times. Patient cannot recall stresses that she is ever in the past, but states that her shortness of breath has continued to improve as her heart rate has come down. Patient reports that she does get some mild lightheadedness upon standing on occasion. She states that this is not at overly common occurrence, but does happen. She states that normally last for about 5 seconds and she never feels like she is going to pass all the way out and has never fallen. Patient denies chest pains, swelling to lower extremities Review of Systems PHQ Score Initial Depression Screen Score: 0 SCORE ROS - Provider Constitutional: no fever, no chills, no sweats, no weakness Respiratory: yes shortness of breath with exertion, no cough Cardiovascular: no chest pain Neuro: no dizziness. no loss of consciousness Physical Exam Vitals & Measurements HR: 90(Peripheral) RR: 16 BP: 124/68 SpO2: 98% HT: 142 cm HT: 56 in WT: 81.6 kg WT: 179.897 lb BMI: 40.47 General: alert, no acute distress Cardiovascular: regular rate and rhythm, no murmur normal peripheral perfusion Respiratory: Lungs CTAB, respirations non labored Extremities: no edema left lower extremity. no edema right lower extremity Neurological: oriented x 4, LOC appropriate for age, speech normal Skin: Warm, dry, intact- no rash or concerning lesions Cardiac Diagnostics Holter monitor from 03/05/2024: 1. predominant rhythm was sinus rhythm/sinus tachycardia 2. Minimum heart rate 71 bpm, average heart rate 105 bpm, max heart rate 138 bpm 3. No secondary arrhythmia detected. 4. Total SVE's: 215 times (0.07%) including trigeminy, runs 3 of 4 beats with heart rate 252 bpm 5. Total VE's: 1639 times (0.55%) including couplets, trigeminy (01/06/2024 11:19 EDT Echo Transthoracic Complete) Interpretation Summary: Ejection Fraction = 60-65%. Normal LV and RV. No significant valve disease. Normal estimated PA pressure. Impaired diastolic relaxation. No changes from 2021. [1] (07/20/2022 12:01 EST [place] Myocardial Spect Rest/Stress 1 Day) CONCLUSIONS: 1. Normal, adequate Lexiscan/MPI. Negative for ischemia by electrocardiogram and myocardial perfusion imaging. 2. Normal TID of 1.01. 3. Normal LV size and function with an ejection fraction of 67%. 4. No anginal symptoms noted and rare premature ventricular contraction noted during recovery. 5. This is a low risk study. [1] Assessment/Plan 1. Inappropriate sinus tachycardia (I47.11: Inappropriate sinus tachycardia, so stated) Patient has appropriate sinus tachycardia. Had a Holter monitor in 03/2024 which her average heart rate was 105. Patient currently taking metoprolol 50 mg ER daily. The medicine was increased previously and patient believes that shortness of breath have improved since increasing it. However, patient reports that she still is having mild issues with shortness of breath, but has to do quite a bit of exertion before it comes. Her heart rate is better controlled based on recent visit b (more content not included)... Normal [facility] Comment on above: Result Comment: Elec tronically Signed By: Antoinette SAMANO, Oswald Camacho\Date and Time Signed: 09/28/24 14:13 EDT Leonardo 09-16-2024 L Specimen: [id number] Received: 09/16/24 Status: DYLON Gamboa Num: [id number] Spec Type: Surgical Subm Dr: Ze Francois MD Tissues: A Skin-Other than Cyst, tag, debridement or plastic repair (RT LOWER LEG) B Skin-Other than Cyst, tag, debridement or plastic repair (LEFT LOWER LEG) Procedures: Emily ROCHE/Ambreen L4/2 Age/ Patient Sex Location Account Attending Physician Carolina Gutierrez 63/F [place] [id number] Ze Francois MD SPEC NUM: [id number] RECD: 09/16/24 STATUS: DYLON SADLERNaif NUM: [id number] ZOEY: 09/16/[address]: Ze Francois MD ENTERED: 09/16/24 [facility] DR: SPEC TYPE: Surgical DEPT: S ENTERED BY: [id number] RECV BY: [id number] ORDERED: HE/4, Gross/Micro L4/2 ORDERED: HE/4, Gross/Micro L4/2 Pathological Diagnosis A, skin, right lower leg, reexcision: -Postbiopsy changes including focal large area of dermal fibrosis, patchy mild squamous acanthosis, occasional minor displacement of the damaged adnexal elements, and 1 small focal mild acute and chronic inflammation, without residual malignancy -Occasional mild actinic effect of the surrounding epidermis with mildly associated squamous atypia (at least 4 mm) -Incidental diffuse background changes of chronic stasis dermatitis with marked scattered lobular proliferations small capillary vessels in the dermis -All margins are also negative for malignancy or any high-grade atypia B, skin, left lower leg, shave biopsy: -High-grade actinic keratosis including 1 small focus of severe dysplasia and squamous cell carcinoma in situ with the deep involvement of attached hair follicle, which however is also minor transected at the base of biopsy, otherwise generally still can be considered as adequate excision Specimen: [id number] Received: 09/16/24 Status: DYLON Cooper Num: [id number] Spec Type: Surgical Subm Dr: Ze Francois MD Tissues: A Skin-Other than Cyst, tag, debridement or plastic repair (RT LOWER LEG) B Skin-Other than Cyst, tag, debridement or plastic repair (LEFT LOWER LEG) Procedures: Emily ROCHE/Ambreen L4/2 Patient: Carolina Gutierrez [id number] (Continued) Specimen: [id number] Received: 09/16/24 (Continued) Signed (signature on file) Kavin Crow MD 09/17/24 1404 Specimen: [id number] Received: 09/16/24 Status: DYLON Gamboa Num: [id number] Spec Type: Surgical Subm Dr: Ze Francois MD Tissues: A Skin-Other than Cyst, tag, debridement or plastic repair (RT LOWER LEG) B Skin-Other than Cyst, tag, debridement or plastic repair (LEFT LOWER LEG) Procedures: Emily ROCHE/Ambreen L4/2 Patient: Carolina Gutierrez [id number] (Continued) Specimen: [id number] Received: 09/16/24-1303 (Continued) Clinical Information Part A: C44.722 Squamous cell carcinoma right lower leg, nonhealing lesion, re-excisional biopsy Part B: D49.2 Neoplasm of unspecified behavior, primary shave biopsy Gross Description Part A is received in formalin labeled with the patients name, date of , and is a santiago-evans, wrinkled, non-oriented ellipse of skin, 2 x 1.2 cm, excised to depth of 0.8 cm. Eccentrically located on the skin is a santiago-pink, ill-defined smooth scar, 0.7 x 0.6 cm that is outlined by a circumferential rim of blue dye and situated 0.2 cm from the closest margin. One half of the specimen is inked black with the opposing half inked green. Serial sections reveal yellow-evans, glistening, and uniform cut surfaces with a deep margin situated 0.7 cm from the scar. The polar tips are submitted intact in A1 with the serially section center the specimen submitted in A2?A3. (3, ns, [id number] A) Part B is received in formalin labeled with the patients name, date of , and left lo wer leg is a santiago-evans, wrinkled ovoid shave of skin, 1.2 x 0.9 x 0.1 cm. Eccentrically located on the skin is a focal crusted area, 0.8 x 0.7 cm that is outlined by a circumferential rim of blue dye, and situated adjacent (less than 0.1 cm) from the closest (more content not included)... Normal [facility] Ambulatory Visit Summaryon 0 08-23-2024 Ambulatory Visit Summary Ambulatory Visit Summary CAROLINA GUTIERREZ :1960 Visit Date:08/23/2024 Ambulatory Visit Instructions Your Diagnosis Bronchitis Cough Shortness of breath Your Care Team Attending Physician - Antoinette SAMANO, Oswald Manning Primary Care Physician - Santino Moran MD This Is Your Medications List acetaminophen (Tylenol) albuterol (ProAir RespiClick 90 mcg/inh inhalation powder) albuterol-ipratropiu m (DuoNeb 2.5 mg-0.5 mg/3 mL Soln-Inh) celecoxib (celecoxib 200 mg Cap) cholestyramine (Questran 4 g/9 g oral powder) cholestyramine (Questran 4 g/9 g oral powder) cyclobenzaprine (cyclobenzaprine 10 mg Tab) fluticasone nasal (Flonase 0.05 mg/inh nasal spray) fluticasone-salmeter ol (Wixela Inhub 250 mcg-50 mcg inhalation powder) furosemide (furosemide 20 mg Tab) guaifenesin (Mucinex) levothyroxine (levothyroxine 137 mcg (0.137 mg) Tab) metoprolol (metoprolol succinate 50 mg ER Tab) montelukast (montelukast 10 mg Tab) ondansetron (ondansetron 4 mg Tab) pantoprazole (Pantoprazole [address] Tab) potassium chloride (Klor-Con M20 oral tablet, extended release) semaglutide (Ozempic (1 mg dose)) tiotropium (Spiriva Respimat 1.25 mcg/inh inhalation aerosol) upadacitinib (Rinvoq 15 mg oral tablet, extended release) Procedures Performed EGD (esophagogastroduode noscopy) gastric outlet reduction (05/21/2022), Colonoscopy (05/09/2021), EGD - Esophagogastroduoden oscopy (05/09/2021), Cataract extraction, Cholecystectomy, Foot repair, Hysterectomy, Knee replacement, Shoulder, Tonsillectomy and adenoidectomy; age 12 or over. Discharge Vitals Temperature (Temporal Artery) 36.7 ???C Heart Rate (Peripheral) 81 Respiratory Rate 24 Blood Pressure 120/90 Height 142 cm Height 56 in Weight 79.9 kg Weight 176.149 lb BMI 39.63 What to do next Scheduled Follow-Up Appointments Saturday 1:45 PM EDT With: Antoinette SAMANO, Oswald Manning Where: [facility] Medications What How Much When Why Instructions Unchanged acetaminophen (Tylenol) 1,000 Milligram By Mouth Every 8 hours as needed for as needed for pain Unchanged albuterol (ProAir RespiClick 90 mcg/ inh inhalation powder) 2 Puffs Inhalation Every 4 hours as needed for for wheezing or SOB Unchanged albuterol-ipratropiu m (DuoNeb 2.5 mg-0.5 mg/ 3 mL Soln-Inh) 3 Milliliter Inhalation 4 times a day Unchanged celecoxib (celecoxib 200 mg Cap) 1 Capsules By Mouth 2 times a day Unchanged cholestyramine (Questran 4 g/ 9 g oral powder) 1 Packets By Mouth 2 times a day Nausea Loss of appetite Diarrhea Unchanged cholestyramine (Questran 4 g/ 9 g oral powder) 1 Packets By Mouth 2 times a day Unchanged cyclobenzaprine (cyclobenzaprine 10 mg Tab) 1 Tablets By Mouth 3 times a day as needed for for spasm Allergic rhinitis Unchanged fluticasone nasal (Flonase 0.05 mg/ inh nasal spray) 2 Sprays Nasal Inhalation Every day Unchanged fluticasone-salmeter ol (Wixela Inhub 250 mcg-50 mcg inhalation powder) See instructions INHALE 1 PUFF BY MOUTH TWICE DAILY IN THE MORNING AND AT NIGHT Unchanged furosemide (furosemide 20 mg Tab) See instructions TAKE 1 TABLET BY MOUTH EVERY DAY Unchanged guaifenesin (Mucinex) 600 Milligram By Mouth Every day Unchanged levothyroxine (levothyroxine 137 mcg (0.137 mg) Tab) See instructions TAKE 1 TABLET BY MOUTH EVERY DAY Unchanged metoprolol (metoprolol succinate 50 mg ER Tab) 1 Tablets By Mouth Every day Inappropriate sinus tachycardia Unchanged montelukast (montelukast 10 mg Tab) See instructions TAKE 1 TABLET BY MOUTH TWICE A DAY Unchanged ondansetron (ondansetron 4 mg Tab) 1 Tablets By Mouth As Directed as needed for Nausea/Vomiting every 6 hours as needed for nausea Unchanged pantoprazole (Pantoprazole [address] Tab) 1 Tablets By Mouth Every day Duration: 90 Days Unchanged potassium chloride (Klor-Con M20 oral tablet, extended release) See instructions TAKE 1 TABLET BY MOUTH TWICE A DAY Unchanged semaglutide (Ozempic (1 mg dose)) See instructions 2 mg SubCutaneous qWeek, ordered by another provider Unchanged tiotropium (Spiriva Respimat 1.25 mcg/ inh inhalation aerosol) 2 Inhalation Inhalation Every day Unchanged upadacitinib (Rinvoq 15 mg oral tablet, extended release) By Mouth Every day Allergies Cefzil (Unknown) Eliquis (Unknown) Keflex (Hives) Pradaxa (Unknown) penicillin G benzathine (Hives) Problems Ongoing - Any problem that you are currently receiving treatment for. Adult BMI 38.0-38.9 kg/sq m Allergic rhinitis Anemia Annual physical exam Anti-citrullinated protein antibody detected Asthma Bilateral otitis media BMI 40.0-44.9, adult Bronchitis Cellulitis, leg Chronic peripheral venous hypertension with lower extremity complication Chronic sinusitis Chronically ill Colitis Cough Derangement of knee Diverticular disease DM2 (diabetes mellitus, type 2) Elevated liver enzymes Esophageal web Exposure to COVID-19 virus Fluid level (more content not included)... Normal [facility] Family Medicine Office/Clini c Noteon 08-23-2024 Family Medicine Office/Clinic Note Family Medicine Office/Clinic Note Chief Complaint Cough and SOB HPI Staff 63 year old female complaints of productive cough, SOB, fatigue, chills, denies any fevers. Pt states she was here about two weeks ago and tested positive for Flu A. Pt states she has a hx of asthma. Onset: Saturday OTC: advil cold and sinus History of Present Illness Patient is a 63-year-old female who comes to clinic today for evaluation of fatigue and cough. Patient reports that she started in with the symptoms yesterday. Patient was diagnosed with influenza A, 2 weeks ago. Patient reports that she finally started feeling better from that on Saturday of this week and then yesterday started in with symptoms again. Patient has a history of asthma and states that she felt herself starting to wheeze yesterday. She was very tired and slept throughout much of the day. She had a low-grade fever of the 99's at home, but no patient has been more short of breath than usual as well. She states that she has been taking all of her inhalers for asthma including Wixela, Spiriva and rescue inhaler. Patient reports that she started bringing up yellow phlegm yesterday. Patient is not having significant sinus symptoms or drainage at this time. No sick contacts to patient's knowledge. Review of Systems ROS negative unless otherwise stated in HPI. Physical Exam Vitals & Measurements T: 36.7 ???C(Temporal Artery) HR: 81(Peripheral) RR: 24 BP: 120/90 HT: 56 in HT: 142 cm WT: 79.9 kg WT: 176.149 lb BMI: 39.63 General: alert, no acute distress Skin: warm, dry intact Head: atraumatic, normocephalic Neck: Trachea midline, no cervical lymphadenopathy Eye: normal conjunctiva, sclera clear ENMT: oral mucosa moist throat: No erythema, no swelling, no exudates. Ears bilateral: EAC's clear, no bulging or erythema to TMs. Cardiovascular: regular rate and rhythm, nomurmur Respiratory: Lungs: Patient has inspiratory wheeze in right upper lobe and left upper lobe. Lower lobes are clear to auscultation., respirations non labored Neurological: oriented x 4, LOC appropriate for age, speech normal Psychiatric: cooperative, affect appropriate for age, normal judgement, normal psychiatric thoughts. Assessment/Plan 1. Bronchitis (J40: Bronchitis, not specified as acute or chronic) Patient had negative COVID and influenza test in the office today. She does have a history of asthma and I think she does have a slight asthma exacerbation along with a bronchitis at this time. Thinking her immune system was still down from the flu and made her more susceptible for another infection. Given this patient's history of asthma, will treat with antibiotic and prednisone. Will send in doxycycline every 12 hours x 7 days and prednisone x 5 days. Patient can continue with [id number] medications, fluids, rest. Will give work note for Saturday and Saturday and she can go back on . Ordered: doxycycline, 100 mg = 1 tab(s), Oral, q12hr, X 7 day(s), # 14 tab(s), Refills(s) 0, Pharmacy: [facility]/pharmacy #[id number], 142, cm, 08/23/24 14:39:00 EST, Height/Length Dosing, 79.9, kg, 08/23/24 14:39:00 EST, Weight Dosing ondansetron, 4 mg = 1 tab(s), Oral, q8hr, PRN Nausea/Vomiting, # 30 tab(s), Refills(s) 0, [id number] 142, cm, 08/23/24 14:39:00 EST, Height/Length Dosing, 79.9, kg, 08/23/24 14:39:00 EST, Weight Dosing predniSONE, 40 mg = 2 tab(s), Oral, Daily, X 5 day(s), # 10 tab(s), Refills(s) 0, [id number] 142, cm, 08/23/24 14:39:00 EST, Height/Length Dosing, 79.9, kg, 08/23/24 14:39:00 EST, Weight Dosing 2. Cough (R05.9: Cough, unspecified) Ordered: Influenza Type A&B POC 51829 Rapid COVID POC 36410 3. Shortness of breath (R06.02: Shortness of breath) Ordered: Influenza Type A&B POC 28449 Rapid COVID POC 61883 Nausea (R11.0: Nausea) Ordered: ondansetron, 4 mg = 1 tab(s), Oral, q8hr, PRN Nausea/Vomiting, # 30 tab(s), Refills(s) 0, [id number] 142, cm, 08/23/24 14:39:00 EST, Height/Length Dosing, 79.9, kg, 08/23/24 14:39:00 EST, Weight Dosing Portions of this record may have been created with voice recognition artificial intelligence software, specifically [employer], [employer] and or [employer]. Substitutions may have occurred due to the inherent limitations of voice recognition and artificial intelligence software. Follow-up No qualifying data available Problem List/Past Medical History Ongoing Adult BMI 38.0-38.9 kg/sq m Allergic rhinitis Anemia Annual physical exam Anti-citrullinated protein antibody detected Asthma Bilateral otitis media BMI 40.0-44.9, adult Bronchitis Cellulitis, leg Chronic peripheral venous hypertension with lower extremity complication Chronic sinusitis Chronically ill Colitis Cough Derangement of knee Diverticular disease DM2 (diabetes mellitus, type 2) Elevated liver enzymes Esophageal web Exposure to COVID-19 virus Fluid level behind tympan (more content not included)... Normal [facility] Comment on above: Result Comment: Elec tronically Signed By: Antoinette SAMANO, Oswald Manning\.br\Date and Time Signed: 08/23/24 14:59 EST Provider Letteron 08-23-2024 Provider Letter Provider Letter August 23, 2024 CAROLINA GUTIERREZ [id number] [id number] : 1960 To Whom It May Concern, Please excuse above patient from work. Date of Illness: From: 08/25/2024 To: 08/26/2024 May Return to Work On:08/27/2024 Sincerely, [facility] [address] [place] [address], [place] [address] [facility] Ambulatory Visit Summaryon 0 08-09-2024 Ambulatory Visit Summary Ambulatory Visit Summary CAROLINA GUTIERREZ :1960 Visit Date:08/09/2024 Ambulatory Visit Instructions Your Diagnosis Influenza A Body aches Oral candidosis Your Care Team Attending Physician - Dolores BERG, Yecenia Primary Care Physician - Santino Moran MD This Is Your Medications List brompheniramine/dext romethorphan/PSE (Bromfed DM oral syrup) nystatin (nystatin 100,000 units/mL Oral Susp) oseltamivir (Tamiflu 75 mg Cap) Contact prescribing physician if questions or concerns acetaminophen (Tylenol) albuterol (ProAir RespiClick 90 mcg/inh inhalation powder) albuterol-ipratropiu m (DuoNeb 2.5 mg-0.5 mg/3 mL Soln-Inh) celecoxib (celecoxib 200 mg Cap) cholestyramine (Questran 4 g/9 g oral powder) cholestyramine (Questran 4 g/9 g oral powder) cyclobenzaprine (cyclobenzaprine 10 mg Tab) denosumab (Prolia) fluticasone nasal (Flonase 0.05 mg/inh nasal spray) fluticasone-salmeter ol (Wixela Inhub 250 mcg-50 mcg inhalation powder) furosemide (furosemide 20 mg Tab) gentamicin guaifenesin (Mucinex) levothyroxine (levothyroxine 137 mcg (0.137 mg) Tab) metoprolol (metoprolol succinate 50 mg ER Tab) montelukast (montelukast 10 mg Tab) ondansetron (ondansetron 4 mg Tab) pantoprazole (Pantoprazole [address] Tab) potassium chloride (Klor-Con M20 oral tablet, extended release) semaglutide (Ozempic (1 mg dose)) tiotropium (Spiriva Respimat 1.25 mcg/inh inhalation aerosol) upadacitinib (Rinvoq 15 mg oral tablet, extended release) Procedures Performed EGD (esophagogastroduode noscopy) gastric outlet reduction (05/21/2022), Colonoscopy (05/09/2021), EGD - Esophagogastroduoden oscopy (05/09/2021), Cataract extraction, Cholecystectomy, Foot repair, Hysterectomy, Knee replacement, Shoulder, Tonsillectomy and adenoidectomy; age 12 or over. Discharge Vitals Temperature (Temporal Artery) 36.9 ???C Heart Rate (Peripheral) 80 Respiratory Rate 18 Blood Pressure 126/74 Height 142 cm Height 56 in Weight 80.4 kg Weight 177.251 lb BMI 39.87 What to do next Scheduled Follow-Up Appointments Saturday 1:45 PM EDT With: Antoinette SAMANO, Oswald Manning Where: [facility] Medications What How Much When Why Instructions New brompheniramine/ dextromethorphan/ PSE (Bromfed DM oral syrup) 10 Milliliter By Mouth 4 times a day Influenza A Body aches Oral candidosis Duration: 5 Days Pickup at [facility]/pharmacy #[id number] New nystatin (nystatin 100,000 units/ mL Oral Susp) 6 Milliliter By Mouth Every 6 hours Influenza A Body aches Oral candidosis Duration: 7 Days retain in mouth as long as possible before swallowing Pickup at [facility]/pharmacy #[id number] New oseltamivir (Tamiflu 75 mg Cap) 1 Capsules By Mouth 2 times a day Influenza A Body aches Oral candidosis Duration: 5 Days Pickup at [facility]/pharmacy #[id number] Unchanged acetaminophen (Tylenol) 1,000 Milligram By Mouth Every 8 hours as needed for as needed for pain Contact prescribing physician if questions or concerns Unchanged albuterol (ProAir RespiClick 90 mcg/ inh inhalation powder) 2 Puffs Inhalation Every 4 hours as needed for for wheezing or SOB Contact prescribing physician if questions or concerns Unchanged albuterol-ipratropiu m (DuoNeb 2.5 mg-0.5 mg/ 3 mL Soln-Inh) 3 Milliliter Inhalation 4 times a day Contact prescribing physician if questions or concerns Unchanged celecoxib (celecoxib 200 mg Cap) 1 Capsules By Mouth 2 times a day Contact prescribing physician if questions or concerns Unchanged cholestyramine (Questran 4 g/ 9 g oral powder) 1 Packets By Mouth 2 times a day Nausea Loss of appetite Diarrhea Contact prescribing physician if questions or concerns Unchanged cholestyramine (Questran 4 g/ 9 g oral powder) 1 Packets By Mouth 2 times a day Contact prescribing physician if questions or concerns Unchanged cyclobenzaprine (cyclobenzaprine 10 mg Tab) 1 Tablets By Mouth 3 times a day as needed for for spasm Allergic rhinitis Contact prescribing physician if questions or concerns Unchanged denosumab (Prolia) 60 Milligram Subcutaneous Every 6 months Contact prescribing physician if questions or concerns Unchanged fluticasone nasal (Flonase 0.05 mg/ inh nasal spray) 2 Sprays Nasal Inhalation Every day Contact prescribing physician if questions or concerns Unchanged fluticasone-salmeter ol (Wixela Inhub 250 mcg-50 mcg inhalation powder) See instructions INHALE 1 PUFF BY MOUTH TWICE DAILY IN THE MORNING AND AT NIGHT Contact prescribing physician if questions or concerns Unchanged furosemide (furosemide 20 mg Tab) See instructions TAKE 1 TABLET BY MOUTH EVERY DAY Contact prescribing physician if questions or concerns Unchanged gentamicin See instructions 300 mg/ 300ml NaCl IV q 24 hr x 14 days (end date ) Contact prescribing physician if questions or concerns Unchanged guaifenesin (Mucinex) 600 Milligram By Mouth Every day Contact prescribing physician if questions or concerns Unchanged levothyroxine (levothyr (more content not included)... Normal [facility] Family Medicine Office/Clini c Noteon 08-09-2024 Family Medicine Office/Clinic Note Family Medicine Office/Clinic Note Chief Complaint cough, earache, body aches HPI Staff 63 year old female presents for right ear pain, productive cough, fatigue, body aches, pt denies having a fever. Onset- 1 day OTC- Tylenol, last dose 1100 today History of Present Illness I have reviewed and verified the staff HPI to be accurate for this encounter. Portions of this record have been created with voice recognition software. Occasional wrong-word or ???[id number]??? substitutions may have occurred due to the inherent limitations of voice recognition software. 63 year old female with history of asthma and T2DM presents with complaint of ear pain, productive cough, fatigue and body aches for the last 24 hours. Some sensation of wheezing/SOB, no chest pain. Uses inhalers and Mucinex at home. Also has nebulizers. Patient dates she did take Tylenol at 11:00 today. Patient also having some nausea. No vomiting. No diarrhea. Patient was concerned she might have illness such as COVID or flu and is requesting testing today. Review of Systems PHQ Score Initial Depression Screen Score: 0 SCORE ROS negative unless otherwise stated in HPI. Physical Exam Vitals & Measurements T: 36.9 ???C(Temporal Artery) HR: 80(Peripheral) RR: 18 BP: 126/74 SpO2: 94% HT: 56 in HT: 142 cm WT: 80.4 kg WT: 177.251 lb BMI: 39.87 General: Well developed, well nourished, in no acute distress mildly ill-appearing Eyes: not assessed Ears: No deformity or lesion of external ear. Canals and TM appear normal bilaterally. TM???s intact, not inflamed, with normal light reflex. Hearing grossly normal to conversational speech Nose: mild nasal mucosa inflammation and edema Mouth: Mucous membranes moist. Normal oropharynx, and posterior pharynx without lesions or exudates. Tongue has whitish exudate with the appearance of thrush Neck: no adenopathy Lungs: clear to auscultation throughout, no wheezing, no rales. No respiratory distress moist cough noted Cardio: regular rate and rhythm, no murmur Abdomen: not assessed Musculoskeletal: not assessed Extremity: not assessed Neurologic: not assessed Skin: No rashes, ulcerations, or suspicious lesions appears to be wearing wig Mental Status: Alert and oriented x3. Normal mood and affect Assessment/Plan Rapid flu A/ B testing done and + influenza A, would like Tamiflu. Also noted on exam a whitish tongue with patient reporting using steroid inhalers and not rinsing her mouth out well. We will prescribe Tamiflu 75 mg twice daily x 5 days. I will also have her do nystatin swish and swallow 600,000 units every 6 hours x 7 days or until clears. For her symptoms I will have her use Bromfed-DM 10 mL every 6 hours as needed for the next 5 days. Patient should monitor her symptoms and follow-up with her primary care if symptoms are not improving over the next 3 to 5 days. For severe symptoms she should report to the emergency department. 1. Influenza A (J10.1: Influenza due to other identified influenza virus with other respiratory manifestations) Tested at patient/parent's request. Rapid influenza test A +. Discussed viral nature of illness and typical duration- the worst (fever, body aches) is usually the first 3-5 days with cold symptoms lasting 7-14 days typically. Advised 48 hr tamiflu window. Advised of possible benefits (shortening duration of illness by about 24 hours, possibly less severe illness) vs possible risks/side effects including temporary altered mental status. Patient/parent would like RX for tamiflu- sent to pharmacy. May use Bromfed-DM 10 mL every 6 hours as needed for symptomatic treatment. Fluids/rest encouraged, PRN tylenol/ibuprofen for pain/fever, may need to alternate. Follow up with PCP if not improving over next 5-7 days, sooner or ER if significantly worsening. Patient/parent verbalized understanding of tx plan. Ordered: brompheniramine/dext romethorphan/PSE, 10 mL, Oral, QID for 5 day(s), 200 mL, Refill(s) 0, [facility]/pharmacy #[id number], 142, cm, 08/09/24 11:57:00 EST, Height/Length Dosing, 80.4, kg, 08/09/24 11:57:00 EST, Weight Dosing nystatin, 600,000 unit(s) = 6 mL, Oral, q6hr, retain in mouth as long as possible before swallowing, X 7 day(s), # 168 mL, Refills(s) 0, Pharmacy: [facility]/pharmacy #[id number], 142, cm, 08/09/24 11:57:00 EST, Height/Length Dosing, 80.4, kg, 08/09/24 11:57:00 EST, Weight... oseltamivir, 75 mg = 1 cap(s), Oral, BID, X 5 day(s), # 10 cap(s), Refills(s) 0, Pharmacy: [facility]/pharmacy #[id number], 142, cm, 08/09/24 11:57:00 EST, Height/Length Dosing, 80.4, kg, 08/09/24 11:57:00 EST, Weight Dosing 2. Body aches (R52: Pain, unspecified) See #2 tyelnol and ibuprofen OTC. Ordered: brompheniramine/dext romethorphan/PSE, 10 mL, Oral, QID for 5 day(s), 200 mL, Refill(s) 0, [facility]/pharmacy #[id number], 142, cm, 08/09/24 11:57:00 EST, Height/Length Dosing, 80.4, kg, 08/09/24 11:57:00 EST, Weight Dosing nystatin, 600,000 unit(s) = 6 mL, Oral, q6hr, retain in mouth as long as possible before swallowing, X 7 day(s), # 1 (more content not included)... Normal [facility] Comment on above: Result Comment: Elec tronically Signed By: Dolores BERG, Yecenia\.br\Date and Time Signed: 08/09/24 15:59 EST Renea 07-08-2024 [facility] Telephone ([facility]) CAROLINA GUTIERREZ ([id number]) 1960 F Date Time Provider Department 07/08/24 ERIK ALEJANDRO During your visit today, we recorded the following information about you: Kathy Vo RN 07/08/2024 3:49 PM Signed Pt called in to cancel simulation and all appts with us. She is working with DR Watson who is going to do surgery to remove the cancer. She states she will not need radiation and requested all visits be cancelled. KAILA Castillo Trisha 07/08/2024 3:56 PM Signed All appointments have been canceled Manju Perry PSS Allergies As of Date: 07/08/2024 Noted Allergy Reaction KEFLEX (CEPHALEXIN) 10/18/2004 4 - Hives PENICILLINS 01/05/2004 4 - Hives ELIQUIS (APIXABAN) 04/14/2024 4 - Hives TREE NUTS 04/14/2024 10 - Anaphylaxis Date Reviewed: 06/15/2024 Reviewed by: Amy Slade RN - Fully Assessed Reason for Visit: Appointment Cancelled [1023] Prescriptions as of 07/08/2024 - aspirin, enteric coated (ADULT LOW DOSE ASPIRIN) 81 mg EC tablet Take 1 tablet by mouth two times a day for 14 days. - ondansetron (ZOFRAN) 4 mg tablet Take 1 tablet by mouth every 8 hours as needed for nausea/vomiting. - L.acidophilus-L.rham nosus (PROBIOTIC) 15 billion cell capsule Take 1 capsule by mouth once daily. Align - furosemide (LASIX) 20 mg tablet Take 20 mg by mouth once daily. - metoprolol succinate ER (TOPROL XL) 100 mg Take 50 mg by mouth once daily. - potassium chloride ER (KLOR-CON) 20 mEq tablet Take 20 mEq by mouth two times a day. - tiotropium bromide (SPIRIVA WITH HANDIHALER INHALATION) Inhale 1 Puff as instructed once daily. - montelukast sodium (SINGULAIR ORAL) Take 10 mg by mouth two times a day. - semaglutide (OZEMPIC) 2 mg/dose (8 mg/3 mL) pen injector Inject 2 mg subcutaneously one time a week. - ondansetron orally disintegrating (ZOFRAN ODT) 4 mg disintegrating tablet Take 1 tablet by mouth every 8 hours as needed. - RINVOQ 15 mg tablet TAKE 1 TABLET BY MOUTH 1 TIME A DAY. - celecoxib (CELEBREX) 200 mg capsule TAKE 1 CAPSULE BY MOUTH TWICE A DAY - levothyroxine (SYNTHROID) 75 mcg tablet TAKE 1.5 TABLETS ON SATURDAY, SATURDAY, SATURDAY, SATURDAY AND 2 TABLETS THE OTHER 3 DAYS - EPIPEN 2-PANCHITO 0.3 mg/0.3 mL (1:1,000) atIn - LANSOPRAZOLE 30 mg capsule Take 1 capsule by mouth daily at bedtime. - fluticasone (FLONASE) 50 mcg/actuation nasal spray 1 [place] daily at bedtime. in each nostril. - Cholecalciferol, Vitamin D3, 1,000 unit ORAL Tab Take 1 tablet by mouth once daily. - CITRACAL 500 MG (2,376 MG) EFFERVESCENT TAB Take one(1) tablet two(2) times daily. - ADVAIR 250/50 DISKUS Inhale 1 Puff as instructed two times a day. 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, left [*10/14/2023 Loose orthopedic implant (HCC) [T84.039A] 11/04/2023 GERD (gastroesophageal reflux disease) [K21.9] 12/20/2023 History of pulmonary embolism [Z86.711] 05/22/2022 Hypertension [I10] 12/20/2023 12/20/2023 Diabetes (HCC) [E11.9] 12/20/2023 Anemia [D64.9] 12/05/2022 Asthma without status asthmaticus [J45.909] 07/01/2010 Primary basal cell carcinoma (BCC) of right elder*12/20/2023 PONV (postoperative nausea and vomiting) [R11.2*12/20/2023 Elevated blood pressure reading in office with *12/20/2023 Inappropriate sinus tachycardia (HCC) [I47.11] 03/30/2024 Leg swelling [M79.89] 03/30/2024 S/P shoulder surgery [Z98.890] 04/14/2024 Postoperative pain [G89.18] 04/15/2024 Rupture of operation wound [T81.31XA] 05/18/2024 Obesity, Class III, BMI >= 40 [E66.01] 05/21/2024 Encounter Status: (more content not included)... Normal [facility] Renea 06-29-2024 CNPN Telephone (INFDMN) CAROLINA GUTIERREZ ([id number]) 1960 F Date Time Provider Department 06/29/24 ANNA COFFMAN INFJOSETTE During your visit today, we recorded the following information about you: Anna Coffman RN 06/29/2024 9:41 AM Anaid Moore from [facility] called to inquire about drawing a Vanco level today since stop date is today. If pt does not need vanco level the nurse would go see pt after last dose of vanco today and pull PICC line. After confirming with Dr. Christianson, Vanco does not need to be drawn and nurse may remove PICC line.I returned call to Teresa at [phone] and let her know the plan. Aleksey Adm Asst I Kathy 06/29/2024 12:10 PM Signed Notified [facility] at [phone], verbal orders given to Acacia. Kathy Ryder Adm Asst I Allergies As of Date: 06/29/2024 Noted Allergy Reaction KEFLEX (CEPHALEXIN) 10/18/2004 4 - Hives PENICILLINS 01/05/2004 4 - Hives ELIQUIS (APIXABAN) 04/14/2024 4 - Hives TREE NUTS 04/14/2024 10 - Anaphylaxis Date Reviewed: 06/15/2024 Reviewed by: Amy Slade, RN - Fully Assessed Reason for Visit: CoPat Stop [9724] Prescriptions as of 06/29/2024 - aspirin, enteric coated (ADULT LOW DOSE ASPIRIN) 81 mg EC tablet Take 1 tablet by mouth two times a day for 14 days. - ondansetron (ZOFRAN) 4 mg tablet Take 1 tablet by mouth every 8 hours as needed for nausea/vomiting. - L.acidophilus-L.rham nosus (PROBIOTIC) 15 billion cell capsule Take 1 capsule by mouth once daily. Align - furosemide (LASIX) 20 mg tablet Take 20 mg by mouth once daily. - metoprolol succinate ER (TOPROL XL) 100 mg Take 50 mg by mouth once daily. - potassium chloride ER (KLOR-CON) 20 mEq tablet Take 20 mEq by mouth two times a day. - tiotropium bromide (SPIRIVA WITH HANDIHALER INHALATION) Inhale 1 Puff as instructed once daily. - montelukast sodium (SINGULAIR ORAL) Take 10 mg by mouth two times a day. - semaglutide (OZEMPIC) 2 mg/dose (8 mg/3 mL) pen injector Inject 2 mg subcutaneously one time a week. - ondansetron orally disintegrating (ZOFRAN ODT) 4 mg disintegrating tablet Take 1 tablet by mouth every 8 hours as needed. - RINVOQ 15 mg tablet TAKE 1 TABLET BY MOUTH 1 TIME A DAY. - celecoxib (CELEBREX) 200 mg capsule TAKE 1 CAPSULE BY MOUTH TWICE A DAY - levothyroxine (SYNTHROID) 75 mcg tablet TAKE 1.5 TABLETS ON SATURDAY, SATURDAY, SATURDAY, SATURDAY AND 2 TABLETS THE OTHER 3 DAYS - EPIPEN 2-PANCHITO 0.3 mg/0.3 mL (1:1,000) atIn - LANSOPRAZOLE 30 mg capsule Take 1 capsule by mouth daily at bedtime. - fluticasone (FLONASE) 50 mcg/actuation nasal spray 1 [place] daily at bedtime. in each nostril. - Cholecalciferol, Vitamin D3, 1,000 unit ORAL Tab Take 1 tablet by mouth once daily. - CITRACAL 500 MG (2,376 MG) EFFERVESCENT TAB Take one(1) tablet two(2) times daily. - ADVAIR 250/50 DISKUS Inhale 1 Puff as instructed two times a day. 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, left [*10/14/2023 Loose orthopedic implant (HCC) [T84.039A] 11/04/2023 GERD (gastroesophageal reflux disease) [K21.9] 12/20/2023 History of pulmonary embolism [Z86.711] 05/22/2022 Hypertension [I10] 12/20/2023 12/20/2023 Diabetes (HCC) [E11.9] 12/20/2023 Anemia [D64.9] 12/05/2022 Asthma without status asthmaticus [J45.909] 07/01/2010 Primary basal cell carcinoma (BCC) of right elder*12/20/2023 PONV (postoperative nausea and vomiting) [R11.2*12/20/2023 Elevated blood pressure reading in office with *12/20/2023 Inappropriate sinus tachycardia (HCC) [I47.11] 03/30/2024 Leg swelling [M79.89] 03/30/2024 S/P should (more content not included)... Normal [facility] CBC AND AUTO DIFFon 1224-20 24 ABSOLUTE BASOPHIL 0.0 X10E9/L Normal 0.0-0.2 [facility] Comment on above: Performed By: #### 1 988-5, KENNEL OPERATOR, 4092-3, CBCA #### [facility] ([id number]) [address] [place] [address] 11159 ABSOLUTE NEUTROPHIL 10.6 X10E9/L High 1.5-6.6 [facility] Comment on above: Performed By: #### 1 988-5, KENNEL OPERATOR, 4092-3, CBCA #### [facility] ([id number]) [address] [place] [address] 21646 Basophils/100 WBC (Bld) 0.0 % Normal [facility] Comment on above: Performed By: #### 1 988-5, KENNEL OPERATOR, 4091-08, CBCA #### [facility] ([id number]) [address] [place] [address] 86725 Eosinophils (Bld) [#/Vol] 0.0 10*3/uL Normal 0.0-0.4 [facility] Comment on above: Performed By: #### 1 988-5, KENNEL OPERATOR, 4091-08, CBCA #### [facility] ([id number]) [address] [place] [address] 83350 Eosinophils/100 WBC (Bld) 0.0 % Normal [facility] Comment on above: Performed By: #### 1 988-5, KENNEL OPERATOR, 4091-08, CBCA #### [facility] ([id number]) [address] [place] [address] 66680 Erythrocyte distribution width (RBC) [Ratio] 17.6 % High 11.5-15.0 [facility] Comment on above: Performed By: #### 1 988-5, KENNEL OPERATOR, 4091-08, CBCA #### [facility] ([id number]) [address] [place] [address] 13267 Hematocrit (Bld) [Volume fraction] 30.9 % Low 35-47 [facility] Comment on above: Performed By: #### 1 988-5, KENNEL OPERATOR, 4091-08, CBCA #### [facility] ([id number]) [address] [place] [address] 45812 Hemoglobin (Bld) [Mass/Vol] 10.1 g/dL Low 11.7-15.5 [facility] Comment on above: Performed By: #### 1 988-5, KENNEL OPERATOR, 4091-08, CBCA #### [facility] ([id number]) [address] [place] [address] 64515 Lymphocytes (Bld) [#/Vol] 0.9 10*3/uL Low 1.0-3.5 [facility] Comment on above: Performed By: #### 1 988-5, KENNEL OPERATOR, 4091-3, CBCA #### [facility] ([id number]) [address] [place] [address] 47633 Lymphocytes/100 WBC (Bld) 7.5 % Normal [facility] Comment on above: Performed By: #### 1 988-5, KENNEL OPERATOR, 4091-, CBCA #### [facility] ([id number]) [address] [place] [address] 58499 MCH (RBC) [Entitic mass] 27.3 pg Normal 27-34 [facility] Comment on above: Performed By: #### 1 988-5, KENNEL OPERATOR, 4091-08, CBCA #### [facility] ([id number]) [address] [place] [address] 72656 MCHC (RBC) [Mass/Vol] 32.7 g/dL Normal 32-36 [facility] Comment on above: Performed By: #### 1 988-5, KENNEL OPERATOR, 4091-08, CBCA #### [facility] ([id number]) [address] [place] [address] 94994 MCV (RBC) [Entitic vol] 83 fL Normal 80-100 [facility] Comment on above: Performed By: #### 1 988-5, KENNEL OPERATOR, 4091-08, CBCA #### [facility] ([id number]) [address] [place] [address] 52895 Monocytes (Bld) [#/Vol] 0.2 10*3/uL Normal 0-0.9 [facility] Comment on above: Performed By: #### 1 988-5, KENNEL OPERATOR, 4091-08, CBCA #### [facility] ([id number]) [address] [place] [address] 93085 Monocytes/100 WBC (Bld) 2.0 % Normal [facility] Comment on above: Performed By: #### 1 988-5, KENNEL OPERATOR, 409-3, CBCA #### [facility] ([id number]) [address] [place] [address] 73549 Neutrophils/100 WBC (Bld) 90.5 % Normal [facility] Comment on above: Performed By: #### 1 988-5, KENNEL OPERATOR, 4091-3, CBCA #### [facility] ([id number]) [address] [place] [address] 08625 Platelet mean volume (Bld) [Entitic vol] 8.2 fL Normal 7-12 [facility] Comment on above: Performed By: #### 1 988-5, KENNEL OPERATOR, 4091-, CBCA #### [facility] ([id number]) [address] [place] [address] 82716 Platelets (Bld) [#/Vol] 249 10*3/uL Normal 150-450 [facility] Comment on above: Performed By: #### 1 988-5, KENNEL OPERATOR, 4091-, CBCA #### [facility] ([id number]) [address] [place] [address] 30085 RBC COUNT 3.71 X10E12/L Low 3.80-5.20 [facility] Comment on above: Performed By: #### 1 988-5, KENNEL OPERATOR, 4091-3, CBCA #### [facility] ([id number]) [address] [place] [address] 23902 WBC (Bld) [#/Vol] 11.7 10*3/uL High 4.0-11.0 [facility] Comment on above: Performed By: #### 1 988-5, KENNEL OPERATOR, 4091-3, CBCA #### [facility] ([id number]) [address] [place] [address] CREATININEon 06-23-2024 Creatinine [Mass/Vol] 0.83 mg/dL Normal 0.40-1.00 [facility] Comment on above: Result Comment: METH OD TRACEABLE TO IDMS STANDARD Performed By: #### 1 988-5, KENNEL OPERATOR, 4091-3, CBCA #### [facility] ([id number]) [address] [place] [address] 08294 GFR/1.73 sq M.predicted among non-blacks MDRD (S/P/Bld) [Vol rate/Area] 79 mL/min/{1.73_m2} Normal >59 [facility] Comment on above: Result Comment: Reported eGFR is based on the CKD-EPI 2020 equation that does not use a race coefficient. Performed By: #### 1 988-5, KENNEL OPERATOR, 4091-3, CBCA #### [facility] ([id number]) [address] [place] [address] 85762 CRP [Mass/Vol]on 06-23-2024 C REACTIVE PROTEIN 1.0 mg/dL High 0.000-0.744 [facility] Comment on above: Performed By: #### 1 988-5, KENNEL OPERATOR, 4091-3, CBCA #### [facility] ([id number]) [address] [place] [address] 84870 Heart and Vascular Office/Cl inic Noteon 06-23-2024 Heart and Vascular Office/Clinic Note Heart and Vascular Office/Clinic Note Chief Complaint 3 month F/U History of Present Illness Carolina is a 63 year old female with tachycardia. Holter monitor from 03/05/2024 showed an average heart rate of 105 bpm, no secondary arrhythmia detected and occasional SVE and VE's. Echo from 12/2023 showed normal EF of 60-65%, no significant valvular disease, normal LV and RV. Patient comes in for 3-month follow-up today. At last visit, i saw patient at which time her metoprolol was increased to 50 mg ER daily from 25 mg ER daily. Patient reports that the increase in metoprolol has helped her symptoms overall. She states that she does still have some mild shortness of breath, but it is better than it was prior to the increase in metoprolol. Patient reports that she sometimes feels her heart racing right now, but that is usually just with walking long distances and not any other times. Patient cannot recall stresses that she is ever in the past, but states that her shortness of breath has continued to improve as her heart rate has come down. Patient reports that she does get some mild lightheadedness upon standing on occasion. She states that this is not at overly common occurrence, but does happen. She states that normally last for about 5 seconds and she never feels like she is going to pass all the way out and has never fallen. Patient denies chest pains, swelling to lower extremities NOTE FROM 03/23/2024: Patient comes in for 6-week follow-up today. At last visit, ordered patient a Holter monitor at which showed above findings. Patient was started on metoprolol ER 25 mg daily. Patient reports that her symptoms of shortness of breath improved significantly after starting metoprolol. Previously, she would get quite short of breath when she is walking longer distances and recently she was able to walk a half of a mile without much issue at all. Patient denies chest pain, heart palpitations, dizziness/lightheade dness, and swelling in lower legs. Review of Systems PHQ Score Initial Depression Screen Score: 0 SCORE ROS - Provider Constitutional: no fever, no chills, no sweats, no weakness Respiratory: yes shortness of breath with exertion, no cough Cardiovascular: no chest pain Neuro: no dizziness. no loss of consciousness Physical Exam Vitals & Measurements HR: 98(Peripheral) RR: 20 BP: 140/82 SpO2: 99% HT: 56 in HT: 142 cm WT: 83.2 kg WT: 183.424 lb BMI: 41.26 General: alert, no acute distress Cardiovascular: regular rate and rhythm, no murmur normal peripheral perfusion Respiratory: Lungs CTAB, respirations non labored Extremities: no edema left lower extremity. no edema right lower extremity Neurological: oriented x 4, LOC appropriate for age, speech normal Skin: Warm, dry, intact- no rash or concerning lesions Cardiac Diagnostics Holter monitor from 03/05/2024: 1. predominant rhythm was sinus rhythm/sinus tachycardia 2. Minimum heart rate 71 bpm, average heart rate 105 bpm, max heart rate 138 bpm 3. No secondary arrhythmia detected. 4. Total SVE's: 215 times (0.07%) including trigeminy, runs 3 of 4 beats with heart rate 252 bpm 5. Total VE's: 1639 times (0.55%) including couplets, trigeminy (01/06/2024 11:19 EDT Echo Transthoracic Complete) Interpretation Summary: Ejection Fraction = 60-65%. Normal LV and RV. No significant valve disease. Normal estimated PA pressure. Impaired diastolic relaxation. No changes from 2021. [1] Assessment/Plan 1. Inappropriate sinus tachycardia (I47.11: Inappropriate sinus tachycardia, so stated) Patient has appropriate sinus tachycardia. Had a recent Holter monitor which her average heart rate was 105. Patient currently taking metoprolol 50 mg ER daily. The medicine was increased at last visit and patient believes that shortness of breath have improved since increasing it.Patient reports that she still is having mild issues with shortness of breath, but has to do quite a bit of exertion before it comes. Hold heart rate is better controlled based on recent visit and reports she is currently on a steroid for bronchitis that is likely contributing to why her heart rate is faster today. Patient continue with current medication of metoprolol 50 mg ER daily Ordered: metoprolol, 50 mg = 1 tab(s), Oral, Daily, # 90 tab(s), Refills(s) 1, Pharmacy: [facility]/pharmacy #[id number], 142, cm, 06/23/24 8:09:00 EST, Height/Length Dosing, 83.2, kg, 06/23/24 8:09:00 EST, Weight Dosing Follow-up with me in 3 months Portions of this record may have been created with voice recognition artificial intelligence software, specifically [employer], [employer] and or [employer]. Substitutions may have occurred due to the inherent limitations of voice recognition and artificial intelligence software. Follow-up No qualifying data available Problem List/Past Medical History Ongoing Adult BMI 38.0-38.9 kg/sq m Allergic rhinitis Anemia Annual physical exam Anti-citrullinated protein an (more content not included)... Normal [facility] Comment on above: Result Comment: Elec tronically Signed By: Antoinette SAMANO, Oswald Manning\.dusty\Date and Time Signed: 06/23/24 08:53 EST Vancomycin trough [Mass/Vol] on 06-23-2024 VANCOMYCIN TROUGH 13.2 ug/mL Normal 5.0-20.0 [facility] Comment on above: Performed By: #### 1 988-5, KENNEL OPERATOR, 4092-3, CBCA #### [facility] ([id number]) [address] [facility] [place]NOTE 2], [place] [address] CBC W Auto Differential pane l (Bld)on 06-15-2024 Abs Neut (ANC) 7.7 K/uL Abnormal 1.4 - 6.5 K/uL [facility] Eosinophils/100 WBC (Bld) 1.2 % 0.9 - 7.0 [facility] Hematocrit (Bld) [Volume fraction] 32.2 % Abnormal 36.0 - 48.0 % [facility] Hemoglobin (Bld) [Mass/Vol] 10.1 g/dL Abnormal 12.0 - 16.0 g/dL [facility] Neutrophils/100 WBC (Bld) 78.8 % Abnormal 43.0 - 75.0 [facility] Platelets (Bld) [#/Vol] 268 10*3/uL 150 - 450 K/uL [facility] WBC (Bld) [#/Vol] 9.8 10*3/uL 4.0 - 11.0 [facility] (RADTSA) CAROLINA GUTIERREZ ([id number]) 1960 F Date Time Provider Department 06/15/24 1:00 PM ERIK ALEJANDRO During your visit today, we recorded the following information about you: Temperature Pulse Respiration Blood pressure 98.1 degrees 77/minute 18/minute 118/79 Weight 83.2 kg Amy Slade RN 07/20/2024 11:48 PM Signed Pacemaker/Defibrilla tor?N Previous Cancer(s)?skin cancer Previous Radiation?N Lupus/Scleroderma?N On body monitoring device?N Erik Alejandro MD 07/21/2024 2:19 PM Addendum Radiation Oncology - New Patient/Consult Note PATIENT NAME: Carolina Gutierrez PATIENT REQUESTING PHYSICIAN: Dr. 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 PATIENT IDENTIFICATION: This patient was seen in the Department of Radiation Oncology at the [facility] with Erik Alejandro MD. Final recommendations will be communicated back to the requesting physician by way of the shared medical record, or letter to requesting physician via US mail. HISTORY OF PRESENT ILLNESS: Ms. Gutierrez is a 63-year-old woman from [place], [place] who had biopsy of a skin lesion of the right lower leg anterior on 12/19/[address] Watson which returned as invasive squamous cell carcinoma. She was offered local excision however the patient preferred to avoid surgery given her history of postop wound infections including open wounds in the lower extremities. She is referred today to the radiation medicine clinic to have a discussion regarding the role of radiation therapy in the definitive and nonoperative management of her skin cancer. 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 PAST SURGICAL HISTORY OF hysterectomy PAST SURGICAL HISTORY OF Right 1989 tibialis anterior tendon PAST SURGICAL HISTORY OF 2014 straightening pronated feet PAST SURGICAL HISTORY OF Right 2021 total knee right PAST SURGICAL HISTORY OF Left 05/2023 total reverse shoulder REMOVAL GALLBLADDER REMV CATARACT EXTRACAP,INSERT LENS Bilateral S ANTERIOR TIBIALIS TENDON TONSILLECTOMY AND ADENOIDECTOMY FAMILY HISTORY: FAMILY HISTORY Problem Relation Age of Onset Cancer Mother Cerebral Embolism Father CVA, aneurysm, [place], other (normal [Other]) Sister None Sister None Sister Breast Cancer No Family History no known family h/o breast or ovarian cancer Anesthesia Problems No Family History SOCIAL HISTORY: Ms. Gutierrez is , has 3 children, and lives in the [place], [place] area. She currently works part-time at the [employer] and denies any tobacco use and consumes alcohol occasionally. RADIATION HISTORY: The patient denies any history of therapeutic radiation. ALLERGIES: ALLERGIES Allergen Reactions Keflex [Cephalexin] Hives Penicillins Hives Eliquis [Apixaban] Hives Tree Nuts Anaphylaxis MEDICATIONS: Current Outpatient Medications: ondansetron (ZOFRAN) 4 mg tablet L.acidophilus-L.rham nosus (PROBIOTIC) 15 billion cell capsule furosemide (LASIX) 20 mg tablet metoprolol succinate ER (TOPROL XL) 100 mg potassium chloride ER (KLOR-CON) 20 mEq tablet tiotropium bromide (SPIRIVA WITH HANDIHALER INHALATION) montelukast sodium (SINGULAIR ORAL) semaglutide (OZEMPIC) 2 mg/dose (8 mg/3 mL) pen injector ondansetron orally disintegrating (ZOFRAN ODT) 4 mg disintegrating tablet RINVOQ 15 mg tablet celecoxib (CELEBREX) 200 mg capsule levothyroxine (SYNTHROID) 75 mcg tablet EPIPEN 2-PANCHITO 0.3 mg/0.3 mL (1:1,000) atIn LANSOPRAZOLE 30 mg capsule fluticasone (FLONASE) 50 mcg/actuation nasal spray Cholecalciferol, Vitamin D3, 1,000 unit ORAL Tab CITRACAL 500 MG (2,376 MG) EFFERVESCENT TAB ADVAIR 250/50 DISKUS aspirin, enteric coated (ADULT LOW DOSE ASPIRIN) 81 mg EC tablet PHYSICAL EXAMINATION: GENERAL: middle-aged woman sitting in chair, in no acute distress. VITALS: BP 118/79 Pulse 77 Temp 98.1 Resp 18 Wt 183 lb 6.8 oz (83.2kg) SpO2 97% KPS: 90 HEENT: NC/AT, anicteric sclera HEART: S1S2 LUNGS: non-labored breathing ABDOMEN: soft MUSCULOSKELETAL: no peripheral edema, moves all extremities. NEURO: no focal deficit; AANDO X3. PATHOLOGIC DATA: 12/19/2023 IMPRESSION: Ms. Gutierrez is a 63-year-old woman recently diagnosed w (more content not included)... Normal [facility] CNPNon 06-15-2024 CNPN Telephone (RADTSA) MATTCAROLINA ([id number]) 1960 F Date Time Provider Department 06/15/24 ERIK ALEJANDRO During your visit today, we recorded the following information about you: Kathy Vo RN 06/15/2024 2:12 PM Signed Schedule SIM treating R Lower Leg (not urgent), Will need CT/SIM and also Clinical Set up Consent Signed Rad Ed today KAILA Castillo Trisha 06/15/2024 2:41 PM Signed Nurse Ed added to todays schedule Amy Loyd RN 06/22/2024 10:44 AM Signed PSS/RT Please schedule SIM 07/[address] Alejandro. Thanks KAILA Weston Denise A, Tech 06/22/2024 1:44 PM Signed PSS- please schedule sim on PET/CT machine on 07/06/2023 @ 12:00pm Rt Lower Leg with arrival time of 11:45am. No special instructions Holly Holder Trisha 06/22/2024 3:53 PM Signed Carolina states that time doesn't work, she wants the latest we can give her because she doesn't want to miss any work. I told her I would call back when I get word of a later time. She understood Louisa Mckenzie, RT(R) 06/25/2024 10:11 AM Signed I called AND spoke with Carolina regarding sim appt options. Pt is unable to come any time on 07/06. Will speak with CONRAD regarding moving pt to [facility]'s schedule for simulation a different day. Louisa Rubi RT(R)(T) Louisa Rubi RT(R) 06/25/2024 1:57 PM Signed Per CONRAD AND [facility], okay to move sim to [facility]'s schedule to accommodate pt work schedule Scheduled sim on 07/13/24 at 8am. I spoke with patient AND informed her of arrival time. PSS - please add sim to ct scanner schedule at 8am x 1 hr. Consent signed. Thanks! Louisa Rubi RT(R)(T) Manju Perry 06/25/2024 4:01 PM Signed Patient is scheduled on 07/13/24 at 8AM Manju [facility] PSS Allergies As of Date: 06/15/2024 Noted Allergy Reaction KEFLEX (CEPHALEXIN) 10/18/2004 4 - Hives PENICILLINS 01/05/2004 4 - Hives ELIQUIS (APIXABAN) 04/14/2024 4 - Hives TREE NUTS 04/14/2024 10 - Anaphylaxis Date Reviewed: 06/15/2024 Reviewed by: Amy Slade RN - Fully Assessed Reason for Visit: Future Appointment [256] Cmt: Schedule Simulation Prescriptions as of 06/26/2024 - aspirin, enteric coated (ADULT LOW DOSE ASPIRIN) 81 mg EC tablet Take 1 tablet by mouth two times a day for 14 days. - ondansetron (ZOFRAN) 4 mg tablet Take 1 tablet by mouth every 8 hours as needed for nausea/vomiting. - L.acidophilus-L.rham nosus (PROBIOTIC) 15 billion cell capsule Take 1 capsule by mouth once daily. Align - furosemide (LASIX) 20 mg tablet Take 20 mg by mouth once daily. - metoprolol succinate ER (TOPROL XL) 100 mg Take 50 mg by mouth once daily. - potassium chloride ER (KLOR-CON) 20 mEq tablet Take 20 mEq by mouth two times a day. - tiotropium bromide (SPIRIVA WITH HANDIHALER INHALATION) Inhale 1 Puff as instructed once daily. - montelukast sodium (SINGULAIR ORAL) Take 10 mg by mouth two times a day. - semaglutide (OZEMPIC) 2 mg/dose (8 mg/3 mL) pen injector Inject 2 mg subcutaneously one time a week. - ondansetron orally disintegrating (ZOFRAN ODT) 4 mg disintegrating tablet Take 1 tablet by mouth every 8 hours as needed. - RINVOQ 15 mg tablet TAKE 1 TABLET BY MOUTH 1 TIME A DAY. - celecoxib (CELEBREX) 200 mg capsule TAKE 1 CAPSULE BY MOUTH TWICE A DAY - levothyroxine (SYNTHROID) 75 mcg tablet TAKE 1.5 TABLETS ON SATURDAY, SATURDAY, SATURDAY, SATURDAY AND 2 TABLETS THE OTHER 3 DAYS - EPIPEN 2-PANCHITO 0.3 mg/0.3 mL (1:1,000) atIn - LANSOPRAZOLE 30 mg capsule Take 1 capsule by mouth daily at bedtime. - fluticasone (FLONASE) 50 mcg/actuation nasal spray 1 [place] daily at bedtime. in each nostril. - Cholecalciferol, Vitamin D3, 1,000 unit ORAL Tab Take 1 tablet by mouth once daily. - CITRACAL 500 MG (2,376 MG) EFFERVESCENT TAB Take one(1) tablet two(2) times daily. - ADVAIR 250/50 DISKUS Inhale 1 Puff as instructed two times a day. Advair diskus 500/50 Problem List As Of Date 06/15/2024 Noted Resolved ALOPECIA AREATA [L63.9] 05/27/2006 HYPOTHYROIDISM [...] 05/07/2022 Cyclic citrullinated peptide (CCP) antibody pos*05/09/2022 Rheumatoi (more content not included)... Normal [facility] CRP [Mass/Vol]Ordered By: Muriel Ryder Adm Asst I on 06-15-2024 CRP High sensitivity method (Bld) [Mass/Vol] 0.97 mg/dL Abnormal - 0.50 mg/dL [facility] Comprehensive metabolic 2000 panelon 06-15-2024 Creatinine [Mass/Vol] 0.92 mg/dL [facility] No Panel InformationOrdered By: Kathy Ryder Adm Asst I on 06-15-2024 Interpretation and review of laboratory results Abnormal [facility] VANCOMYCIN PRE DOSEon 2023 Vancomycin Pre 15.9 5 - 20 [facility] CBC W Auto Differential pane l (Bld)on 06-08-2024 Abs Neut (ANC) 7.5 K/uL Abnormal 1.4 - 6.5 K/uL [facility] Eosinophils/100 WBC (Bld) 1.3 % 0.9 - 7.0 [facility] Hematocrit (Bld) [Volume fraction] 33.8 % Abnormal 36.0 - 48.0 % [facility] Hemoglobin (Bld) [Mass/Vol] 10.3 g/dL Abnormal 12.0 - 16.0 g/dL [facility] Interpretation and review of laboratory results Abnormal [facility] Neutrophils/100 WBC (Bld) 74.3 % 43.0 - 75.0 [facility] Platelets (Bld) [#/Vol] 321 10*3/uL 150 - 450 K/uL [facility] WBC (Bld) [#/Vol] 10.1 10*3/uL 4.0 - 11.0 K/uL [facility] CRP [Mass/Vol]Ordered By: Muriel Ryder Adm Asst I on 06-08-2024 CRP High sensitivity method (Bld) [Mass/Vol] 0.50 mg/dL - 0.50 mg/dL [facility] No Panel InformationOrdered By: Kathy Ryder Adm Asst I on 06-08-2024 [facility] VANCOMYCIN PRE DOSEon 2023 Vancomycin Pre 15.0 5.0 - 20.0 [facility] CNOVon 06-05-2024 CNOV Office Visit (ORTHIN) CAROLINA GUTIERREZ ([id number]) 1960 F Date Time Provider Department 06/05/24 1:45 PM JOHN HOLLY During your visit today, we recorded the following information about you: John Holly MD 06/05/2024 3:15 PM Signed [facility] [place] NOTE Department of Orthopaedics [place] [facility] [place] Gutierrez CLINIC NO.: [id number] DATE: 06/05/2024 Surgery: Removal Of Prosthesis, Includes Debridement And Synovectomy When Performed; Humeral And Glenoid Components (eg, Total Shoulder) - Left and Manual Prep And Insertion Deep Drug Delivery Dev Intra-articular - Left Date: 04/14/2024 Interval Hx: Carolina Gutierrez is back for 4 weeks follow up after above mentioned procedure. she denies any new injury or trauma. she gives her pain 2 out of 10. She has seen Dr. Ros Christianson and was started on PICC line and vancomycin about 2 weeks ago. The plan is to treat her with total of 6 weeks of IV antibiotics. 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 Last time in the office, we removed multiple sutures from her incision and it seems that that helped healing of the incision and she has not had any drainage since then. She denies any fever chills or systemic sign of infection. PHYSICAL EXAMINATION: Incision appears well-healed. Passive range of motion of the shoulder is pain-free. Actively she is able to raise her arm to 40 degrees of forward elevation 30 degrees of external rotation and internal rotation to SI joint. Her strength is 4 out of 5 in all planes. She is weakly firing her deltoid and posterior head but I cannot appreciate contraction and middle anterior deltoid. Upper extremity has intact sensory and motor function and has good perfusion distally. RADIOGRAPHIC STUDIES: 3 view xray of the left shoulder shows a well-positioned spacer with no evidence of loosening. Spacer is in good place. 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 ASSESSMENT: Encounter Diagnosis ICD-10-CM 1. 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 This is a very complex situation because she is a rheumatoid patient and goes through multiple flares. She has history of infection in her skin in multiple locations of her body. She is currently on IV antibiotics and PICC line and have another 4 weeks of antibiotic left. We had a long conversation regarding her treatment options and the fact that she either have the choice of living with the spacer for the rest of her life versus a complex reconstruction with a custom implant which has the risk of failure, infection and dislocation. This is a big decision and she needs to think about that and discuss her options with her . In the meantime, I would like to establish function of her deltoid and we will order an EMG. I would like to see her back in 2 weeks with the results of the EMG so we can finalize the plan for her left shoulder. I'd like to see her in 6 weeks with repeat xrays. If any questions or concerns arise, she should not hesitate to call. John Holly M.D. M.M.Sc. Shoulder and Elbow Surgeon Orthopaedic Surgery Department [place], [place] [address] Tell: [phone] Appt:[phone] Referring Provider: JOHN HOLLY [[id number]] Allergies As of Date: 06/05/2024 Noted Allergy Reaction KEFLEX (CEPHALEXIN) 10/18/2004 4 - Hives PENICILLINS 01/05/2004 4 - Hives ELIQUIS (APIXABAN) 04/14/2024 4 - Hives TREE NUTS 04/14/2024 10 - Anaphylaxis Date Reviewed: 06/05/2024 Reviewed by: Linda Goodman MA - Fully Assessed Reason for Visit: Post Op [174] Primary Visit Diagnosis:Failed orthopedic implant, subsequent encounter [T84.498D] Order(s):XR SHOULDER GENERAL 3V OR MORE AP/TRUE AP/OTHER LEFT [[id number]] Order #: [id number] FUTURE EMG(NEURO/NI) [[id number]] Order #: [id number]: 1 FUTURE Prescriptions as of 06/05/2024 - aspirin, enteric coated (ADULT LOW DOSE ASPIRIN) 81 mg EC tablet Take 1 tablet by mouth two times a day for 14 days. - ondansetron (ZOFRAN) 4 mg tablet Take 1 tablet by mouth every 8 hours as needed for nausea/vomiting. - L.acidophilus-L.rham nosus (PROBIOTIC) 15 billion cell capsule Take 1 capsule by mouth once daily. Align - furosemide (LASIX) 20 mg tablet Take 20 mg by mouth once daily. - metoprolol succinate ER (TOPROL XL) 100 mg Take 50 mg by mouth once daily. - potassium chloride ER (KLOR-CON) 20 mEq tablet Take 20 mEq by mouth two times a day. - tiotropium bromide (SPIRIVA WITH HANDIHALER INHALATION) Inhale 1 Puff as instructed once daily. - montelukast sodium (SINGULAIR ORAL) Take 10 mg by mo (more content not included)... Normal [facility] XR SHLDR >/=3V AP/ZAN AP/OTH R LTon 06-05-2024 XR SHLDR >/=3V AP/ZAN AP/OTHR LT * * *Final Report* * * DATE OF EXAM: Jun 05 2024 1:58PM CCX 5252 - XR SHLDR >/=3V AP/ZAN AP/OTHR LT / PROCEDURE REASON: Failed orthopedic implant, subsequent encounter * * * * Physician Interpretation * * * * HISTORY: Failed orthopedic implant, subsequent encounter . TECHNIQUE: XR SHLDR >/=3V AP/ZAN AP/OTHR LT Laterality: LEFT Number of different views (projections): 3 COMPARISON: Radiographs dated 05/18/2024. RESULT: Again seen are changes of left shoulder arthroplasty explantation and cement spacer placement. No acute fracture or dislocation. No soft tissue swelling. There is no evidence of acute process in the included chest. No other significant abnormality. ----- IMPRESSION: Postoperative changes. No acute findings. Project Product Manager: [facility] Transcribe Date/Time: Jun 05 2024 2:26P Dictated by : MULUGETA MCKEON MD This examination was interpreted and the report reviewed and electronically signed by: MULUGETA MCKEON MD on Jun 05 2024 2:29PM EST [id number] Normal [facility] XR Shoulder - left 3 Viewson 06-05-2024 IMPRESSION: Postoperative changes. No acute findings. Project Product Manager: [facility] Transcribe Date/Time: Jun 05 2024 2:26P Dictated by : MULUGETA MCKEON MD This examination was interpreted and the report reviewed and electronically signed by: MULUGETA MCKEON MD on Jun 05 2024 2:29PM EST DIVISION OF RADIOLOGY * * *Final Report* * * DATE OF EXAM: Jun 05 2024 1:58PM CCX 5252 - XR SHLDR >/=3V AP/ZAN AP/OTHR LT / PROCEDURE REASON: Failed orthopedic implant, subsequent encounter * * * * Physician Interpretation * * * * HISTORY: Failed orthopedic implant, subsequent encounter . TECHNIQUE: XR SHLDR >/=3V AP/ZAN AP/OTHR LT Laterality: LEFT Number of different views (projections): 3 COMPARISON: Radiographs dated 05/18/2024. RESULT: Again seen are changes of left shoulder arthroplasty explantation and cement spacer placement. No acute fracture or dislocation. No soft tissue swelling. There is no evidence of acute process in the included chest. No other significant abnormality. ----- DIVISION OF RADIOLOGY Provider, [facility] - 06/05/2024 * * *Final Report* * * DATE OF EXAM: Jun 05 2024 1:58PM CCX 5252 - XR SHLDR >/=3V AP/ZAN AP/OTHR LT / PROCEDURE REASON: Failed orthopedic implant, subsequent encounter * * * * Physician Interpretation * * * * HISTORY: Failed orthopedic implant, subsequent encounter . TECHNIQUE: XR SHLDR >/=3V AP/ZAN AP/OTHR LT Laterality: LEFT Number of different views (projections): 3 COMPARISON: Radiographs dated 05/18/2024. RESULT: Again seen are changes of left shoulder arthroplasty explantation and cement spacer placement. No acute fracture or dislocation. No soft tissue swelling. There is no evidence of acute process in the included chest. No other significant abnormality. ----- IMPRESSION IMPRESSION: Postoperative changes. No acute findings. Project Product Manager: [facility] Transcribe Date/Time: Jun 05 2024 2:26P Dictated by : MULUGETA MCKEON MD This examination was interpreted and the report reviewed and electronically signed by: MULUGETA MCKEON MD on Jun 05 2024 2:29PM EST [facility] Radiology Study observation (narrative) [facility] XR Shoulder - left 3 ViewsOr dered By: Ccf Provider on 06-05-[address] [facility] [address] Upper arm - left WO contr ana 06-03-2024 IMPRESSION: Postoperative findings as detailed with healing periprosthetic proximal humeral fracture. Project Product Manager: [facility] Transcribe Date/Time: Jun 03 2024 8:02P Dictated by : SINTIA WISE MD This examination was interpreted and the report reviewed and electronically signed by: SINTIA WISE MD on Jun 03 2024 8:22PM [facility] RAD[facility]OLOG[facility] * * *Final Report* * * DATE OF EXAM: Jun 03 2024 6:40PM [facility] 0081 - CT HUMERUS WO IVCON LT / PROCEDURE REASON: * * * * Physician Interpretation * * * * EXAMINATION: CT HUMERUS WO IVCON LT CLINICAL HISTORY: Pain TECHNIQUE: Axial CT of the left humerus was obtained. Bone and soft tissue reconstruction algorithms were utilized. CT Radiation dose: Integrated Dose-length product (DLP) for this visit = 649 mGy*cm. CT Dose Reduction Employed: Automated exposure control(AEC) and iterative recon COMPARISON: 05/18/2024 and 04/22/2024 radiographs RESULT: Postoperative changes of left shoulder hardware explantation and placement of proximal humeral cement spacer are again demonstrated. Moderate glenohumeral joint effusion/capsular thickening with multiple scattered ossific fragments, likely postoperative in etiology. There is a healing nondisplaced periprosthetic fracture along the lateral aspect of the proximal humerus with surrounding bridging callus formation (301:62). Marked distal clavicular and glenoid bone loss with medialization of the humeral head is similar to prior. There is significant fatty atrophy of the imaged musculature about the shoulder. No discrete organized fluid collection. Full Service Supervisor (topogram) images: No additional findings. [facility] Provider, [facility] - 06/03/2024 * * *Final Report* * * DATE OF EXAM: Jun 03 2024 6:40PM [facility] 0081 - CT HUMERUS WO IVCON LT / PROCEDURE REASON: * * * * Physician Interpretation * * * * EXAMINATION: CT HUMERUS WO IVCON LT CLINICAL HISTORY: Pain TECHNIQUE: Axial CT of the left humerus was obtained. Bone and soft tissue reconstruction algorithms were utilized. CT Radiation dose: Integrated Dose-length product (DLP) for this visit = 649 mGy*cm. CT Dose Reduction Employed: Automated exposure control(AEC) and iterative recon COMPARISON: 05/18/2024 and 04/22/2024 radiographs RESULT: Postoperative changes of left shoulder hardware explantation and placement of proximal humeral cement spacer are again demonstrated. Moderate glenohumeral joint effusion/capsular thickening with multiple scattered ossific fragments, likely postoperative in etiology. There is a healing nondisplaced periprosthetic fracture along the lateral aspect of the proximal humerus with surrounding bridging callus formation (301:62). Marked distal clavicular and glenoid bone loss with medialization of the humeral head is similar to prior. There is significant fatty atrophy of the imaged musculature about the shoulder. No discrete organized fluid collection. Full Service Supervisor (topogram) images: No additional findings. IMPRESSION IMPRESSION: Postoperative findings as detailed with healing periprosthetic proximal humeral fracture. Project Product Manager: [facility] Transcribe Date/Time: Jun 03 2024 8:02P Dictated by : SINTIA WISE MD This examination was interpreted and the report reviewed and electronically signed by: SINTIA WISE MD on Jun 03 2024 8:22PM EST [facility] Radiology Study observation (narrative) [facility] CT Upper arm - left WO contr astOrdered By: Ccf Provider on 06-03-2024 [facility] CBC W Auto Differential pane l (Bld)on 06-01-2024 Abs Neut (ANC) 6.3 K/uL 1.5 - 6.5 K/uL [facility] Eosinophils/100 WBC (Bld) 1.8 % 0.9 - 7.0 [facility] Hematocrit (Bld) [Volume fraction] 33.5 % Abnormal 36.0 - 48.0 % [facility] Hemoglobin (Bld) [Mass/Vol] 10.3 g/dL Abnormal 12.0 - 16.0 g/dL [facility] Interpretation and review of laboratory results Abnormal [facility] Neutrophils/100 WBC (Bld) 65.3 % 43.0 - 75.0 [facility] Platelets (Bld) [#/Vol] 385 10*3/uL 150 - 450 K/uL [facility] WBC (Bld) [#/Vol] 9.7 10*3/uL 4.0 - 11.0 K/uL [facility] CRP [Mass/Vol]Ordered By: Muriel Ryder Adm Asst I on 06-01-2024 CRP High sensitivity method (Bld) [Mass/Vol] mg/dL - 0.50 mg/dL [facility] Comprehensive metabolic 2000 panelon 06-01-2024 Creatinine [Mass/Vol] 0.95 mg/dL [facility] No Panel InformationOrdered By: Kathy Ryder Adm Asst I on 06-01-2024 [facility] VANCOMYCIN PRE DOSEon 2023 Vancomycin Pre 9.6 5.0 - 20.0 [facility] CBC AND AUTO DIFFon 05-24-20 ABSOLUTE BASOPHIL 0.0 X10E9/L Normal 0.0-0.2 [facility] Comment on above: Performed By: #### C BCA, KENNEL OPERATOR #### [facility] ([id number]) [address] [place] [address] #### GENTD #### [facility] ([id number]) [address] [place] [address] [facility] ([id number]) [address] [place] [address] ABSOLUTE NEUTROPHIL 5.2 X10E9/L Normal 1.5-6.6 [facility] Comment on above: Performed By: #### C BCA, KENNEL OPERATOR #### [facility] ([id number]) [address] [place] [address] #### GENTD #### [facility] ([id number]) [address], [address] [place] [address] [facility] ([id number]) [address] [place] [address] Basophils/100 WBC (Bld) 0.6 % Normal [facility] Comment on above: Performed By: #### C BCA, KENNEL OPERATOR #### [facility] ([id number]) [address] [place] [address] #### GENTD #### [facility] ([id number]) [address], [address] [place] [address] [facility] ([id number]) [address] [place] [address] Eosinophils (Bld) [#/Vol] 0.2 10*3/uL Normal 0.0-0.4 [facility] Comment on above: Performed By: #### C BCA, KENNEL OPERATOR #### [facility] ([id number]) [address] [place] [address] #### GENTD #### [facility] ([id number]) [address] [place] [address] [facility] ([id number]) [address] [place] [address] Eosinophils/100 WBC (Bld) 2.6 % Normal [facility] Comment on above: Performed By: #### C BCA, KENNEL OPERATOR #### [facility] ([id number]) [address] [place] [address] #### GENTD #### [facility] ([id number]) [address], [address] [place] [address] [facility] ([id number]) [address] [place] [address] Erythrocyte distribution width (RBC) [Ratio] 16.1 % High 11.5-15.0 [facility] Comment on above: Performed By: #### C BCA, KENNEL OPERATOR #### [facility] ([id number]) [address] [place] [address] #### GENTD #### [facility] ([id number]) [address], [address] [place] [address] [facility] ([id number]) [address] [place] [address]55 Hematocrit (Bld) [Volume fraction] 32.4 % Low 35-47 [facility] Comment on above: Performed By: #### C BCA, KENNEL OPERATOR #### [facility] ([id number]) [address] [place] [address] #### GENTD #### [facility] ([id number]) [address], [address] [place] [address] [facility] ([id number]) [address] [place] [address] Hemoglobin (Bld) [Mass/Vol] 10.5 g/dL Low 11.7-15.5 [facility] Comment on above: Performed By: #### C BCA, KENNEL OPERATOR #### [facility] ([id number]) [address] [place] [address] #### GENTD #### [facility] ([id number]) [address], [address] [place] [address] [facility] ([id number]) [address] [place] [address] Lymphocytes (Bld) [#/Vol] 2.3 10*3/uL Normal 1.0-3.5 [facility] Comment on above: Performed By: #### C BCA, KENNEL OPERATOR #### [facility] ([id number]) [address] [place] [address] #### GENTD #### [facility] ([id number]) [address], [address] [place] [address] [facility] ([id number]) [address] [place] [address]65 Lymphocytes/100 WBC (Bld) 27.6 % Normal [facility] Comment on above: Performed By: #### C BCA, KENNEL OPERATOR #### [facility] ([id number]) [address] [place] [address] #### GENTD #### [facility] ([id number]) [address], [address] [place] [address] [facility] ([id number]) [address] [place] [address]75 MCH (RBC) [Entitic mass] 27.8 pg Normal 27-34 [facility] Comment on above: Performed By: #### C BCA, KENNEL OPERATOR #### [facility] ([id number]) [address] [place] [address] #### GENTD #### [facility] ([id number]) [address] [place] [address] [facility] ([id number]) [address] [place] [address]00 MCHC (RBC) [Mass/Vol] 32.4 g/dL Normal 32-36 [facility] Comment on above: Performed By: #### C BCA, KENNEL OPERATOR #### [facility] ([id number]) [address] [place] [address] #### GENTD #### [facility] ([id number]) [address], [address] [place] [address] [facility] ([id number]) [address] [place] [address] 39707 MCV (RBC) [Entitic vol] 86 fL Normal 80-100 [facility] Comment on above: Performed By: #### C BCA, KENNEL OPERATOR #### [facility] ([id number]) [address] [place] [address] #### GENTD #### [facility] ([id number]) [address], [address] [place] [address] [facility] ([id number]) [address] [place] [address]339 Monocytes (Bld) [#/Vol] 0.5 10*3/uL Normal 0-0.9 [facility] Comment on above: Performed By: #### C BCA, KENNEL OPERATOR #### [facility] ([id number]) [address] [place] [address] #### GENTD #### [facility] ([id number]) [address] [place] [address] [facility] ([id number]) [address] [place] [address] Monocytes/100 WBC (Bld) 5.8 % Normal [facility] Comment on above: Performed By: #### C BCA, KENNEL OPERATOR #### [facility] ([id number]) [address] [place] [address] #### GENTD #### [facility] ([id number]) [address] [place] [address] [facility] ([id number]) [address] [place] [address]66[address] Neutrophils/100 WBC (Bld) 63.4 % Normal [facility] Comment on above: Performed By: #### C BCA, KENNEL OPERATOR #### [facility] ([id number]) [address] [place] [address] #### GENTD #### [facility] ([id number]) [address] [address] [place] [address] [facility] ([id number]) [address] [place] [address] 52462 Platelet mean volume (Bld) [Entitic vol] 8.2 fL Normal 7-12 [facility] Comment on above: Performed By: #### C BCA, KENNEL OPERATOR #### [facility] ([id number]) [address] [place] [address] 94[address] #### GENTD #### [facility] ([id number]) [address], [address] [place] [address] [facility] ([id number]) [address] [place] [address] 92995 Platelets (Bld) [#/Vol] 351 10*3/uL Normal 150-450 [facility] Comment on above: Performed By: #### C PREET, KENNEL OPERATOR #### [facility] ([id number]) [address] [place] [address] 78882 #### GENTD #### [facility] ([id number]) [address], [address] [place] [address] [facility] ([id number]) [address] [place] [address] 57593 RBC COUNT 3.77 X10E12/L Low 3.80-5.20 [facility] Comment on above: Performed By: #### C BCA, KENNEL OPERATOR #### [facility] ([id number]) [address] [place] [address] 445[address] #### GENTD #### [facility] ([id number]) [address], [address] [place] [address] [facility] ([id number]) [address] [place] [address] 31257 WBC (Bld) [#/Vol] 8.2 10*3/uL Normal 4.0-11.0 [facility] Comment on above: Performed By: #### C BCA, KENNEL OPERATOR #### [facility] ([id number]) [address] [place] [address] 875[address] #### GENTD #### [facility] ([id number]) [address] [facility], [address] [address] [facility] ([id number]) [address] [place] [address] 16098 CREATININEon 05-24-2024 Creatinine [Mass/Vol] 0.94 mg/dL Normal 0.40-1.00 [facility] Comment on above: Result Comment: METH OD TRACEABLE TO IDMS STANDARD Performed By: #### C BCA, KENNEL OPERATOR #### [facility] ([id number]) [address] [place] [address] 20[address] #### GENTD #### [facility] ([id number]) [address] [facility], [address] [address] [facility] ([id number]) [address] [place] [address]644 GFR/1.73 sq M.predicted among non-blacks MDRD (S/P/Bld) [Vol rate/Area] 68 mL/min/{1.73_m2} Normal >59 [facility] Comment on above: Result Comment: Reported eGFR is based on the CKD-EPI 2020 equation that does not use a race coefficient. Performed By: #### C BCA, KENNEL OPERATOR #### [facility] ([id number]) [address] [place] [address] #### GENTD #### [facility] ([id number]) [address] [facility], [address] [place] [address] [facility] ([id number]) [address] [place] [address]312 GENTAMICIN W/DOSEon 05-24-20 24 DOSE INFO last dose 05/21/24 Normal [facility] Comment on above: Performed By: #### C BCA, KENNEL OPERATOR #### [facility] ([id number]) [address] [place] [address] #### GENTD #### [facility] ([id number]) [address] [facility], [address] [place] [address] [facility] ([id number]) [address] [place] [address]608 GENTAMICIN LEVEL <0.3 Normal 0.0-12.0 [facility] Comment on above: Performed By: #### C BCA, KENNEL OPERATOR #### [facility] ([id number]) [address] [place] [address] 53481 #### GENTD #### [facility] ([id number]) [address] [address], [address] [place] [address] [facility] ([id number]) [address] [place] [address] CREATININE Don 05-22-2024 Creatinine [Mass/Vol] 0.92 mg/dL Normal 0.58-0.96 [facility] Comment on above: Order Comment: Speci men Type: BLOOD SPECIMEN Ordering Facility: [facility] Address: [address] [place] [address] Performed By: #### 4 537-7 #### [facility] CLIA [id number] [address] [place] [address] [place] [address] [place] Creatinine and Glomerular filtration rate.predicted panel (S/P/Bld) 70 mL/min/1.73m??? Normal >=60 [facility] Comment on above: Order Comment: Speci men Type: BLOOD SPECIMEN Ordering Facility: [facility] Address: [address] [place] [address] Result Comment: Katlyn mated Glomerular Filtration Rate (eGFR) is calculated using the 2020 CKD-EPI creatinine equation. This equation utilizes serum creatinine, sex, and age as parameters. The creatinine assay has traceable calibration to isotope dilution-mass spectrometry. Refer to KDIGO guidelines for clinical interpretation. In patients with unstable renal function, e.g. those with acute kidney injury, the eGFR may not accurately reflect actual GFR. Performed By: #### 4 [id number] #### [facility] CLIA [id number] [address] [place], [place] [address] [place] [address] [place] CBC W Auto Differential pane l (Bld)on 05-20-2024 Abs Neut (ANC) 8.2 K/uL Abnormal 1.4 - 6.5 K/uL [facility] Eosinophils/100 WBC (Bld) 4.8 % 0.9 - 7.0 [facility] Hematocrit (Bld) [Volume fraction] 35.5 % Abnormal 36.0 - 48.0 % [facility] Hemoglobin (Bld) [Mass/Vol] 11.0 g/dL Abnormal 12.0 - 16.0 g/dL [facility] Neutrophils/100 WBC (Bld) 73.9 % 43.0 - 75.0 [facility] Platelets (Bld) [#/Vol] 300 10*3/uL 150 - 450 K/uL [facility] WBC (Bld) [#/Vol] 11.0 10*3/uL 4.0 - 11.0 K/uL [facility] CRP [Mass/Vol]Ordered By: Muriel Ryder Adm Asst I on 05-20-2024 CRP High sensitivity method (Bld) [Mass/Vol] 3.76 mg/dL Abnormal - 0.50 mg/dL [facility] Comprehensive metabolic 2000 panelon 05-20-2024 Creatinine [Mass/Vol] 1.27 mg/dL Abnormal [facility] ESR Westergren method (Bld) [Velocity]on 05-20-2024 WSR 81 Abnormal 0 - 30 [facility] GENTAMICIN RANDOMon 05-20-20 24 RBC Folate 9.2 [facility] No Panel InformationOrdered By: Kathy Ryder Adm Asst I on 05-20-2024 Interpretation and review of laboratory results Abnormal [facility] CNOVon 05-18-2024 CNOV Office Visit (ORTHMN) CAROLINA GUTIERREZ ([id number]) 1960 F Date Time Provider Department 05/18/24 1:45 PM JOHN HOLLY ORTHMN During your visit today, we recorded the following information about you: John Holly MD 05/18/2024 3:27 PM Signed [facility] NOTE Department of Orthopaedics John Holly [place] [facility] [place]: [place] Gutierrez CLINIC NO.: [id number] DATE: 05/18/2024 Surgery: Removal Of Prosthesis, Includes Debridement And Synovectomy When Performed; Humeral And Glenoid Components (eg, Total Shoulder) - Left and Manual Prep And Insertion Deep Drug Delivery Dev Intra-articular - Left Date: 04/14/2024 Interval Hx: Carolina Gutierrez is back for 4 weeks follow up after above mentioned procedure. she denies any new injury or trauma. she gives her pain 2 out of 10. she is not using pain medication. she is doing physical therapy and improving. she is satisfied with her results so far. She has done well with pain post-op and started having itching and a wound in the sternum area. She saw dermatology for that and they took cultures and showed MRSA and she went back to ED and received a PICC line and she has been treated with gentamicin. She had drainage from multiple superficial abscesses along the incision. No fever, no chills, no night sweets. PHYSICAL EXAMINATION: Incision appears well-healed except few areas of suture abscess along the incision that we removed and cleaned up. Forward elevation is passively to 140 ? and actively to 0 ?. External rotation is passively to 50 ? and actively to 10 ? with 20 degree lag sign. Abduction is actively to 30 ? and Internal rotation is actively to SI. her strength is 4 of 5 in internal rotation , 4 of 5 in external rotation and 4 of 5 in abduction in the plane of scapula. Belly press test is neg. Jobes test is neg and Neer and Lovett are neg. Upper extremity has intact sensory and motor function and has good perfusion distally. RADIOGRAPHIC STUDIES: 3 view xray of the left shoulder shows spacer in a good position and no evidence of loosening, massive glenoid bone loss. ASSESSMENT: Encounter Diagnosis ICD-10-CM 1. 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 Rheumatoid arthritis of multiple sites without rheumatoid factor (HCC) M06.09 3. Dehiscence of operative wound, initial encounter T81.31XA PLAN: I told Carolina Gutierrez that she has developed wound dehiscence and I am glad she is started on IV Abx. We need to get a CT scan and assess her bone loss. We removed all the sutures from the incision and she should continue treating it with local wound care. I would like to get a CT scan and see how much bone stock she has in order to be able to plan the next surgery. I'd like to see her in 3 weeks with repeat xrays. If any questions or concerns arise, she should not hesitate to call. John Holly M.D. M.M.Sc. Shoulder and Elbow Surgeon Orthopaedic Surgery Department [place] [address] Tell: [phone] Appt: Allergies As of Date: 05/18/2024 Noted Allergy Reaction KEFLEX (CEPHALEXIN) 10/18/2004 4 - Hives PENICILLINS 01/05/2004 4 - Hives ELIQUIS (APIXABAN) 04/14/2024 4 - Hives TREE NUTS 04/14/2024 10 - Anaphylaxis Date Reviewed: 05/18/2024 Reviewed by: Cortney Kay OCCA - Fully Assessed Reason for Visit: Pain [78] Cmt: Fluid leakage from wound Established Patient [175] Cmt: Fluid leakage from wound Primary Visit Diagnosis:Failed orthopedic implant, subsequent encounter [T84.498D] Other Visit Diagnoses:Rheumatoid arthritis of multiple sites without rheumatoid factor (HCC) [M06.09] Dehiscence of operative wound, initial encounter [T81.31XA] Order(s):CT HUMERUS WO IVCON LEFT [[id number]] Order #: [id number] FUTURE Prescriptions as of 05/18/2024 - doxycycline hyclate (VIBRAMYCIN) 100 mg capsule Take 1 capsule (100 mg) by mouth two times a day for 28 days. - aspirin, enteric coated (ADULT LOW DOSE ASPIRIN) 81 mg EC tablet Take 1 tablet by mouth two times a day for 14 days. - ondansetron (ZOFRAN) 4 mg tablet Take 1 tablet by mouth every 8 hours as needed for nausea/vomiting. - L.acidophilus-L.rham nosus (PROBIOTIC) 15 billion cell capsule Take 1 capsule by mouth once daily. Align - furosemide (LASIX) 20 mg tablet Take 20 mg by mouth once daily. - metoprolol succinate ER (TOPROL XL) 100 mg Take 50 mg by mouth once daily. - potassium chloride ER (KLOR-CON) 20 mEq tablet Take 20 mEq by mouth two times a day. - tiotropium bromide (SPIRIVA WITH HANDIHALER INHALATION) Inhale 1 Puff as instructed once daily. - montelukast sodium (SINGULAIR ORAL) Take 10 mg by mouth two times a day. - semaglutide (OZEMPIC) 2 mg/dose (8 mg/3 mL) pen injector Inject 2 mg subcutaneously one time a week. - ondansetron orally disintegrating (ZOFRAN ODT) 4 mg dis (more content not included)... Normal [facility] 05-18-20 [facility] Case Information Case Priority: None Programs: -- Referral Source: Tile Professional Referral Reason: Care coordination Case Type: Transition Care Management Risk Score: -- Case Status: Enrolled (May 18, 2024) Date Assigned: May 18, 2024 Assigned By: Pop Alvarez Date Enrolled: May 18, 2024 Assigned Primary Personnel: Pop Alvarez Assigned Secondary Personnel: -- Case Physician: Berry Canales Problems Ongoing Adult BMI 38.0-38.9 kg/sq m Allergic rhinitis Anemia Annual physical exam Anti-citrullinated protein antibody detected Asthma Bilateral otitis media BMI 40.0-44.9, adult Bronchitis Cellulitis, leg Chronic peripheral venous hypertension with lower extremity complication Chronic sinusitis Chronically ill Colitis Cough Derangement of knee Diverticular disease DM2 (diabetes mellitus, type 2) Elevated liver enzymes Esophageal web Exposure to COVID-19 virus Fluid level behind tympanic membrane of both ears Gastroesophageal reflux disease without esophagitis Hemorrhoids History of colitis Hospital discharge follow-up Hx of pulmonary embolus Hypothyroidism Hypoxemia Left lower lobe pneumonia Low hemoglobin Lung nodules Moderate asthma without complication Morbid obesity with BMI of 40.0-44.9, adult Nasal congestion Non-insulin dependent type 2 diabetes mellitus Obesity due to excess calories Oral thrush Postcholecystectomy diarrhea Pre-op exam Rheumatoid arthritis involving multiple sites with positive rheumatoid factor Right otitis media S/P shoulder surgery Shingles rash Shortness of breath Smoker Viral gastritis Weight loss, unintentional Wheezing Wound of skin Historical Arthritis Asthma Change in bowel habits COVID-19 Dysphagia Loose stools Nausea Procedure/Surgical History EGD (esophagogastroduode noscopy) gastric outlet reduction (05/21/2022), Colonoscopy (05/09/2021), EGD - Esophagogastroduoden oscopy (05/09/2021), Cataract extraction, Cholecystectomy, Foot repair, Hysterectomy, Knee replacement, Shoulder, Tonsillectomy and adenoidectomy; age 12 or over. Home Medications celecoxib 200 mg Cap, 200 mg= 1 cap(s), Oral, BID cyclobenzaprine 10 mg Tab, 10 mg= 1 tab(s), Oral, TID, PRN doxycycline hyclate 100 mg Cap DuoNeb 2.5 mg-0.5 mg/3 mL Soln-Inh, 3 mL, Inhalation, QID Flonase 0.05 mg/inh nasal spray, 2 spray(s), Nasal, Daily furosemide 20 mg Tab, See Instructions, 4 refills Klor-Con M20 oral tablet, extended release, See Instructions levothyroxine 137 mcg (0.137 mg) Tab, See Instructions, 4 refills metoprolol succinate 50 mg ER Tab, 50 mg= 1 tab(s), Oral, Daily montelukast 10 mg Tab, See Instructions Mucinex, 600 mg, Oral, Daily ondansetron 4 mg Tab, 4 mg= 1 tab(s), Oral, As Directed, PRN Ozempic (1 mg dose), See Instructions Pantoprazole [address] Tab, 40 mg= 1 tab(s), Oral, Daily ProAir RespiClick 90 mcg/inh inhalation powder, 2 puff(s), Inhalation, q4hr, PRN, 11 refills Prolia, 60 mg, SubCutaneous, q6mo Questran 4 g/9 g oral powder, 1 packet(s), Oral, BID Questran 4 g/9 g oral powder, 1 packet(s), Oral, BID Rinvoq 15 mg oral tablet, extended release, Oral, Daily Spiriva Respimat 1.25 mcg/inh inhalation aerosol, 2 inh, Inhalation, Daily Tylenol, 1000 mg, Oral, q8hr, PRN Wixela Inhub 250 mcg-50 mcg inhalation powder, See Instructions Allergies Cefzil (Unknown) Eliquis (Unknown) Keflex (Hives) Pradaxa (Unknown) penicillin G benzathine (Hives) Social History Alcohol - Low Risk, 01/08/2024 Current. Beer, Wine. 1-2 times per year., 04/27/2024 Employment/School - Low Risk, 05/22/2022 Exercise - Does not exercise, 05/22/2022 Home/Environment - Low Risk, 05/22/2022 Nutrition/Health - Low Risk, 05/22/2022 Sexual - No Risk, 05/22/2022 Substance Abuse - Denies Substance Abuse, 01/20/2024 Current. Previous treatment: None., 04/27/2024 Tobacco - Denies Tobacco Use, 01/20/2024 Never (less than 100 in lifetime) Tobacco Use:. Never Smokeless Tobacco Use:. Cigarettes, 05/04/2024 Family History Cancer: Mother. Diabetes mellitus type 2: Sister. Stroke: Father. Screenings and Assessments 05/18/24 14:15:00 Result Name Value Comment Phone Call Monitoring Consent Agreed to continue call Phone Verification Patient Information Full name, street address and date of verified CM Program Enrollment Provides verbal consent for enrollment Goals and Interventions Care Plan Progress Note Admit Date: 05/14/24 TB Date of Discharge: 05/15/24 Follow-up appointment scheduled? yes, 05/21/24 at 1040 with PCP Did you understand your discharge instructions? yes Are you able to follow them? yes Did you receive new medications? yes, gentamicin in nacl 100 mg/ ml 300 mg IV q 24 hr x 14 (end date 05/30/24) Have you filled the Rx's? yes Are you taking them as prescribed? (more content not included)... Normal [facility] XR SHLDR >/=3V AP/ZAN AP/OTH R LTon 05-18-2024 XR SHLDR >/=3V AP/ZAN AP/OTHR LT * * *Final Report* * * DATE OF EXAM: May 18 2024 12:39PM AOX 5252 - XR SHLDR >/=3V AP/ZAN AP/OTHR LT / PROCEDURE REASON: S/P shoulder surgery * * * * Physician Interpretation * * * * HISTORY: S/P shoulder surgery . 4 weeks out since surgery with spacer, follow-up. TECHNIQUE: XR SHLDR >/=3V AP/ZAN AP/OTHR LT COMPARISON: 04/22/2024, 10/14/2023 RESULT: No significant interval change. Again seen postoperative changes of shoulder arthroplasty explantation and cement spacer placement. Extensive glenoid bone loss again noted. Absence of the distal clavicle also noted likely sequela of prior surgical resection. No fractures. No other significant abnormality. ----- IMPRESSION: Postoperative findings as described with no significant interval change. Project Product Manager: [facility] Transcribe Date/Time: May 18 2024 1:00P Dictated by : MONI RIZZO MD This examination was interpreted and the report reviewed and electronically signed by: MONI RIZZO MD on May 18 2024 1:02PM EST [id number] Normal [facility] XR Shoulder - left 3 Viewson 05-18-2024 IMPRESSION: Postoperative findings as described with no significant interval change. Project Product Manager: [facility] Transcribe Date/Time: May 18 2024 1:00P Dictated by : MONI RIZZO MD This examination was interpreted and the report reviewed and electronically signed by: MONI RIZZO MD on May 18 2024 1:02PM EST DIVISION OF RADIOLOGY * * *Final Report* * * DATE OF EXAM: May 18 2024 12:39PM AOX 5252 - XR SHLDR >/=3V AP/ZAN AP/OTHR LT / PROCEDURE REASON: S/P shoulder surgery * * * * Physician Interpretation * * * * HISTORY: S/P shoulder surgery . 4 weeks out since surgery with spacer, follow-up. TECHNIQUE: XR SHLDR >/=3V AP/ZAN AP/OTHR LT COMPARISON: 04/22/2024, 10/14/2023 RESULT: No significant interval change. Again seen postoperative changes of shoulder arthroplasty explantation and cement spacer placement. Extensive glenoid bone loss again noted. Absence of the distal clavicle also noted likely sequela of prior surgical resection. No fractures. No other significant abnormality. ----- DIVISION OF RADIOLOGY Provider, [facility] [place] - 05/18/2024 * * *Final Report* * * DATE OF EXAM: May 18 2024 12:39PM AOX 5252 - XR SHLDR >/=3V AP/ZAN AP/OTHR LT / PROCEDURE REASON: S/P shoulder surgery * * * * Physician Interpretation * * * * HISTORY: S/P shoulder surgery . 4 weeks out since surgery with spacer, follow-up. TECHNIQUE: XR SHLDR >/=3V AP/ZAN AP/OTHR LT COMPARISON: 04/22/2024, 10/14/2023 RESULT: No significant interval change. Again seen postoperative changes of shoulder arthroplasty explantation and cement spacer placement. Extensive glenoid bone loss again noted. Absence of the distal clavicle also noted likely sequela of prior surgical resection. No fractures. No other significant abnormality. ----- IMPRESSION IMPRESSION: Postoperative findings as described with no significant interval change. Project Product Manager: DEBBIE Transcribe Date/Time: May 18 2024 1:00P Dictated by : MONI RIZZO MD This examination was interpreted and the report reviewed and electronically signed by: MONI RIZZO MD on May 18 2024 1:02PM [facility] Radiology Study observation (narrative) [facility] XR Shoulder - left 3 ViewsOr dered By: Ccf Provider on 05-18-2024 [facility] Aerobic cultureon 05-14-2024 Appearance (Unsp spec) Adequate [facility] Bacteria identified # 2 Cx Nom (Unsp spec) SEE NOTE Abnormal [facility] Comment on above: Heavy growth of Group B Streptococcus isolated Beta-hemolytic streptococci are predictably susceptible to Penicillin and other beta-lactams. Susceptibility testing not routinely performed. Please contact the laboratory within 3 days if susceptibility testing is desired. Bacteria identified Aer cx Nom (Unsp spec) SEE NOTE [facility] Comment on above: Skin juanjose also present. Bacteria identified Cx Nom (Isol) SEE NOTE Abnormal [facility] Comment on above: Moderate growth of Methicillin resistant Staphylococcus aureus (MRSA) Internal identifier for Provider [id number] [facility] Interpretation and review of laboratory results Abnormal [facility] Service comment (Unsp spec) [Interp] SEE NOTE [facility] Comment on above: No source was provided. The specimen was tested and reported based upon the test code ordered. If this is incorrect, please contact client services. MRSA INT ISIDRA CIPROFLOXACIN R >=8 CLINDAMYCIN R >=8 ERYTHROMYCIN R >=8 GENTAMICIN S <=0.5 LEVOFLOXACIN R >=8 OXACILLIN R NR 1 TETRACYCLINE R >=16 TRIMETHOPRIM/SULFA R >=320 VANCOMYCIN S 1 Legend: S = Susceptible I = Intermediate R = Resistant NS = Not susceptible SDD = Susceptible Dose Dependent * = Not Tested NR = Not Reported NN = See Therapy Comments THERAPY COMMENTS Note 1: Oxacillin-resistant staphylococci are resistant to all currently available beta-lactam antimicrobial agents with the possible exception of ceftaroline. Specimen source Nom (Unsp spec) NOT GIVEN [facility] STATUS FINAL [facility] FASTING: UNKNOWN [facility] Organization Information Site ID: QPT Name: [employer] [facility] [address] Address: [address] [place] [address], [address] [place] [phone] Director: Blas Carlson MD [facility] CULTURE, AEROBIC BACTERIAon 05-14-2024 CULTURE, AEROBIC BACTERIA SEE NOTE Abnormal [facility] Comment on above: Order Comment: FASTI NG: UNKNOWN Result Comment: CULTURE, AEROBIC BACTERIA Micro Number: [id number] Test Status: Final Specimen Source: Not given Specimen Quality: Adequate Result: Moderate growth of Methicillin resistant Staphylococcus aureus (MRSA) Heavy growth of Group B Streptococcus isolated Beta-hemolytic streptococci are predictably susceptible to Penicillin and other beta-lactams. Susceptibility testing not routinely performed. Please contact the laboratory within 3 days if susceptibility testing is desired. COMMENT: Skin juanjose also present. No source was provided. The specimen was tested and reported based upon the test code ordered. If this is incorrect, please contact client services. MRSA INT ISIDRA CIPROFLOXACIN R >=8 CLINDAMYCIN R >=8 ERYTHROMYCIN R >=8 GENTAMICIN S <=0.5 LEVOFLOXACIN R >=8 OXACILLIN R NR 1 TETRACYCLINE R >=16 TRIMETHOPRIM/SULFA R >=320 VANCOMYCIN S 1 S = Susceptible I = Intermediate R = Resistant NS = Not susceptible SDD = Susceptible Dose Dependent * = Not Tested NR = Not Reported NN = See Therapy Comments THERAPY COMMENTS Note 1: Oxacillin-resistant staphylococci are resistant to all currently available beta-lactam antimicrobial agents with the possible exception of ceftaroline. Performed By: #### 4 [phone] #### [employer] [address], [address] [place] [address] Chemical Etch Operator: Blas Meier 05-11-2024 [facility] Telephone ([facility]) CAROLINA GUTIERREZ ([id number]) 1960 F Date Time Provider Department 05/11/24 [facility] During your visit today, we recorded the following information about you: Wong Zamora Research Coordinator 05/12/2024 7:09 AM Signed TELEPHONE ENCOUNTER IRB#: [id number] [facility]enter [facility] Study Title: Multicenter Study on Clinical and Microbiologic Outcomes for Suspected Shoulder Periprosthetic Joint Infection PI: Dr. Titus Garay Special Agent Secret Service: Mayra Zamora Date: 05/11/24 Time: 3:45 PM Pre-op phone interview for surgery on 04/14/24. Patient Phone Interview was completed per study protocol and data recorded in study files. Patient agreed to participate in study. Completed SST survey. Performed by: Mayra Zamora Allergies As of Date: 05/11/2024 Noted Allergy Reaction KEFLEX (CEPHALEXIN) 10/18/2004 4 - Hives PENICILLINS 01/05/2004 4 - Hives ELIQUIS (APIXABAN) 04/14/2024 4 - Hives TREE NUTS 04/14/2024 10 - Anaphylaxis Date Reviewed: 04/22/2024 Reviewed by: Linda Goodman MA - Fully Assessed Reason for Visit: Research Phone Interview [Other] Cmt: IRB# [id number] [facility] Prescriptions as of 05/12/2024 - doxycycline hyclate (VIBRAMYCIN) 100 mg capsule Take 1 capsule (100 mg) by mouth two times a day for 28 days. - aspirin, enteric coated (ADULT LOW DOSE ASPIRIN) 81 mg EC tablet Take 1 tablet by mouth two times a day for 14 days. - ondansetron (ZOFRAN) 4 mg tablet Take 1 tablet by mouth every 8 hours as needed for nausea/vomiting. - acetaminophen (TYLENOL EXTRA STRENGTH) 500 mg tablet Take 2 tablets by mouth every 8 hours as needed for pain. - L.acidophilus-L.rham nosus (PROBIOTIC) 15 billion cell capsule Take 1 capsule by mouth once daily. Align - furosemide (LASIX) 20 mg tablet Take 20 mg by mouth once daily. - metoprolol succinate ER (TOPROL XL) 100 mg Take 50 mg by mouth once daily. - potassium chloride ER (KLOR-CON) 20 mEq tablet Take 20 mEq by mouth two times a day. - tiotropium bromide (SPIRIVA WITH HANDIHALER INHALATION) Inhale 1 Puff as instructed once daily. - montelukast sodium (SINGULAIR ORAL) Take 10 mg by mouth two times a day. - semaglutide (OZEMPIC) 2 mg/dose (8 mg/3 mL) pen injector Inject 2 mg subcutaneously one time a week. - ondansetron orally disintegrating (ZOFRAN ODT) 4 mg disintegrating tablet Take 1 tablet by mouth every 8 hours as needed. - RINVOQ 15 mg tablet TAKE 1 TABLET BY MOUTH 1 TIME A DAY. - celecoxib (CELEBREX) 200 mg capsule TAKE 1 CAPSULE BY MOUTH TWICE A DAY - levothyroxine (SYNTHROID) 75 mcg tablet TAKE 1.5 TABLETS ON SATURDAY, SATURDAY, SATURDAY, SATURDAY AND 2 TABLETS THE OTHER 3 DAYS - EPIPEN 2-PANCHITO 0.3 mg/0.3 mL (1:1,000) atIn - LANSOPRAZOLE 30 mg capsule Take 1 capsule by mouth daily at bedtime. - fluticasone (FLONASE) 50 mcg/actuation nasal spray 1 [place] daily at bedtime. in each nostril. - Cholecalciferol, Vitamin D3, 1,000 unit ORAL Tab Take 1 tablet by mouth once daily. - CITRACAL 500 MG (2,376 MG) EFFERVESCENT TAB Take one(1) tablet two(2) times daily. - ADVAIR 250/50 DISKUS Inhale 1 Puff as instructed two times a day. 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 [facility] Case Information Case Priority: None Programs: -- Referral Source: Tile Professional Referral Reason: Care coordination Case Type: Transition Care Management Risk Score: -- Case Status: Enrolled (April 16, 2024) Date Assigned: April 16, 2024 Assigned By: Pop Alvarez Date Enrolled: April 16, 2024 Assigned Primary Personnel: Pop Alvarez Assigned Secondary Personnel: -- Case Physician: Berry Canales Problems Ongoing Adult BMI 38.0-38.9 kg/sq m Allergic rhinitis Anemia Annual physical exam Anti-citrullinated protein antibody detected Asthma Bilateral otitis media BMI 40.0-44.9, adult Bronchitis Cellulitis, leg Chronic peripheral venous hypertension with lower extremity complication Chronic sinusitis Chronically ill Colitis Cough Derangement of knee Diverticular disease DM2 (diabetes mellitus, type 2) Elevated liver enzymes Esophageal web Exposure to COVID-19 virus Fluid level behind tympanic membrane of both ears Gastroesophageal reflux disease without esophagitis Hemorrhoids History of colitis Hospital discharge follow-up Hx of pulmonary embolus Hypothyroidism Hypoxemia Left lower lobe pneumonia Low hemoglobin Lung nodules Moderate asthma without complication Morbid obesity with BMI of 40.0-44.9, adult Nasal congestion Non-insulin dependent type 2 diabetes mellitus Obesity due to excess calories Oral thrush Postcholecystectomy diarrhea Pre-op exam Rheumatoid arthritis involving multiple sites with positive rheumatoid factor Right otitis media S/P shoulder surgery Shingles rash Shortness of breath Smoker Viral gastritis Weight loss, unintentional Wheezing Wound of skin Historical Arthritis Asthma Change in bowel habits COVID-19 Dysphagia Loose stools Nausea Procedure/Surgical History EGD (esophagogastroduode noscopy) gastric outlet reduction (05/21/2022), Colonoscopy (05/09/2021), EGD - Esophagogastroduoden oscopy (05/09/2021), Cataract extraction, Cholecystectomy, Foot repair, Hysterectomy, Knee replacement, Shoulder, Tonsillectomy and adenoidectomy; age 12 or over. Home Medications celecoxib 200 mg Cap, 200 mg= 1 cap(s), Oral, BID cyclobenzaprine 10 mg Tab, 10 mg= 1 tab(s), Oral, TID, PRN doxycycline hyclate 100 mg Cap DuoNeb 2.5 mg-0.5 mg/3 mL Soln-Inh, 3 mL, Inhalation, QID Flonase 0.05 mg/inh nasal spray, 2 spray(s), Nasal, Daily furosemide 20 mg Tab, See Instructions, 4 refills Klor-Con M20 oral tablet, extended release, See Instructions levothyroxine 137 mcg (0.137 mg) Tab, See Instructions, 4 refills metoprolol succinate 50 mg ER Tab, 50 mg= 1 tab(s), Oral, Daily montelukast 10 mg Tab, See Instructions Mucinex, 600 mg, Oral, Daily ondansetron 4 mg Tab, 4 mg= 1 tab(s), Oral, As Directed, PRN Ozempic (1 mg dose), See Instructions Pantoprazole [address] Tab, 40 mg= 1 tab(s), Oral, Daily ProAir RespiClick 90 mcg/inh inhalation powder, 2 puff(s), Inhalation, q4hr, PRN, 11 refills Prolia, 60 mg, SubCutaneous, q6mo Questran 4 g/9 g oral powder, 1 packet(s), Oral, BID Questran 4 g/9 g oral powder, 1 packet(s), Oral, BID Rinvoq 15 mg oral tablet, extended release, Oral, Daily Spiriva Respimat 1.25 mcg/inh inhalation aerosol, 2 inh, Inhalation, Daily Tylenol, 1000 mg, Oral, q8hr, PRN Wixela Inhub 250 mcg-50 mcg inhalation powder, See Instructions Allergies Cefzil (Unknown) Eliquis (Unknown) Keflex (Hives) Pradaxa (Unknown) penicillin G benzathine (Hives) Social History Alcohol - Low Risk, 01/08/2024 Current. Beer, Wine. 1-2 times per year., 04/27/2024 Employment/School - Low Risk, 05/22/2022 Exercise - Does not exercise, 05/22/2022 Home/Environment - Low Risk, 05/22/2022 Nutrition/Health - Low Risk, 05/22/2022 Sexual - No Risk, 05/22/2022 Substance Abuse - Denies Substance Abuse, 01/20/2024 Current. Previous treatment: None., 04/27/2024 Tobacco - Denies Tobacco Use, 01/20/2024 Never (less than 100 in lifetime) Tobacco Use:. Never Smokeless Tobacco Use:. Cigarettes, 05/04/2024 Family History Cancer: Mother. Diabetes mellitus type 2: Sister. Stroke: Father. Screenings and Assessments 04/16/24 14:34:00 Result Name Value Comment Phone Call Monitoring Consent Agreed to continue call Phone Verification Patient Information Full name, street address and date of verified CM Program Enrollment Provides verbal consent for enrollment Goals and Interventions Care Plan Progress Note TCM #5- Patient stated she is doing pretty good. Stated she is not using sling to left arm and has no pain. Has a couple of areas of her incision that she is keeping a close eye on that have some slightly reddish drainage and one area is just very slightly red . States she had a zoom call about 10 days ago with surgeon for him to see incision and he was not concerned at the time. Areas are (more content not included)... Normal [facility] Gastroenterology Office/Clin ic Noteon 05-04-2024 Gastroenterology Office/Clinic Note Gastroenterology Office/Clinic Note Chief Complaint sick call- loss of appetite and nausea HPI Staff This is a 63 year old female who presents today for a sick call for complaints of nausea and loss of appetite. Denies Blood Thinners Ozempic weekly Denies any family history of colon cancer/polyps or IBD Denies Dysphagia, abdominal pain, constipation, or bloody stools. Diarrhea- 4 BM daily, occasional blood in stools, back and forth between normal stools and diarrhea, takes imodium as needed. [facility] 01/08/24 History of Present Illness 63-year-old female to the emergency department chief complaint of vomiting, abdominal pain, diarrhea. Symptoms began yesterday. Recently in the hospital for CHF exacerbation and pneumonia. She was in the ICU on antibiotics. She has a history of C. difficile. She reports greater than 10 episodes of diarrhea overnight. She has been vomiting unable to keep anything down. She reports chills without fever. CT abd/pelv w/ contrast 01/08/24 IMPRESSION: MILD UNCOMPLICATED PANCOLITIS, MOST LIKELY INFECTION OR INFLAMMATORY BOWEL DISEASE; RATHER THAN DIVERTICULITIS, ISCHEMIA, OR OTHER LESS LIKELY POSSIBILITIES. Last visit w/ [facility] Assessment/Plan 1. Esophageal web (Q39.4: Esophageal web) Ordered to start pantoprazole 40mg daily. Continue pepcid 20mg at bedtime. 2. Acid reflux (K21.9: Gastro-esophageal reflux disease without esophagitis) see #1 3. Anemia (D64.9: Anemia, unspecified) Educated to ensure she is eating protein in diet- will recheck protein level. EGD w/ Dr Montes 05/21/22 Impression and Plan Proximal esophageal web, dilated using 60 [place] Arriaza dilator Colonoscopy w/ Dr Montes 05/09/21 Endoscopic Diagnosis: 1. Normal TI, photo taken 2. Normal colonic mucosa, random biopsies obtained to rule out microscopic colitis. 3. Small nonbleeding internal hemorrhoids and moderate diverticulitis throughout the colon Final Diagnosis (Verified) A: GASTRIC BODY, BIOPSY: ??? GASTRIC BODY MUCOSA WITH MILD CHRONIC INFLAMMATION IN LAMINA PROPRIA. ??? PROTON PUMP INHIBITOR INDUCED CHANGES SUGGESTED. ??? NO INTESTINAL METAPLASIA IDENTIFIED. B: COLON, RANDOM BIOPSY: ??? COLONIC MUCOSA WITHIN NORMAL LIMITS. Laboratory Results CBC CMP PT PTT Basophil Absolute: 0 E9/L (01/24/24) A/G Ratio: 1.3 (01/20/24) INR: 0.9 (01/20/24) PTT: 20.4 second(s) Low (01/20/24) Basophil Auto: 0.2 % (01/24/24) AGAP: 10 mEq/L (01/24/24) PT: 10.1 second(s) (01/20/24) Eos Absolute: 0.1 E9/L (01/24/24) Albumin Lvl: 3.5 gm/dL (01/20/24) Eos Auto: 0.7 % (01/24/24) Alk Phos: 64 Int._Unit/L (01/20/24) Hct: 30.8 % Low (01/24/24) ALT: 26 Int._Unit/L (01/20/24) HGB: 10.5 gm/dL Low (01/24/24) AST: 45 Int._Unit/L High (01/20/24) Lymph Absolute: 0.6 E9/L Low (01/24/24) Bili Total: 1.1 mg/dL (01/20/24) Lymph Auto: 7.4 % Low (01/24/24) BUN: 4 mg/dL Low (01/24/24) MCH: 29.9 pg (01/24/24) BUN/Creat Ratio: 13 (01/24/24) MCHC: 34 gm/dL (01/24/24) Calcium Lvl: 7.6 mg/dL Low (01/24/24) MCV: 87.9 fL (01/24/24) Chloride: 105 mmol/L (01/24/24) Yates Absolute: 0.6 E9/L (01/24/24) CO2: 28 mmol/L (01/24/24) Yates Auto: 7.5 % (01/24/24) Creatinine: 0.6 mg/dL (04/07/24) MPV: 7.2 fL (01/24/24) Globulin: 2.6 gm/dL (01/20/24) Neutro Absolute: 6.6 E9/L (01/24/24) Glucose Lvl: 122 mg/dL (01/24/24) Neutro Auto: 84.2 % High (01/24/24) Potassium Lvl: 3.1 mmol/L Low (01/24/24) Platelet: 192 E9/L (01/24/24) Sodium Lvl: 140 mmol/L (01/24/24) RBC: 3.5 E12/L Low (01/24/24) Total Protein: 6.1 gm/dL (01/20/24) RDW: 17.1 % High (01/24/24) WBC: 7.9 E9/L (01/24/24) Liver Studies Ferritin Lvl: 17 ng/mL (12/05/22) Ferritin Lvl: 39 ng/mL (10/04/21) Iron: 98 mcg/dL (12/05/22) Iron: 90 mcg/dL (10/04/21) TIBC: 492 mcg/dL High (12/05/22) TIBC: 484 mcg/dL High (10/04/21) Transferrin: 351 mg/dL (12/05/22) Transferrin: 346 mg/dL (10/04/21) Celiac Panel IgA Quant: 203 (10/04/21) History of Present Illness I have reviewed HPI staff note, most recent labs and imaging, I agree with the above documentation with the following additions/exceptions : Pt with feeling sick since December she has appetite and feels hungry but she loses appetite greasy food gives her diarrhea daniel 20+ years ago on doxy for shoulder pain on anti GLP for DM Patient with mild elevation in AST Review of Systems PHQ Score Initial Depression Screen Score: 0 SCORE All systems reviewed, negative except as mentioned above Physical Exam Vitals & Measurements HR: 74(Peripheral) RR: 16 BP: 135/74 HT: 59 in HT: 149 cm WT: 86.7 kg WT: 190.74 lb BMI: 39.05 General: alert, no acute distress HEENT: atraumatic normocephalic Cardiovascular: regular rate and rhythm, normal peripheral perfusion Respiratory: Lungs CTA, respirations non labored Extremities: no deformity, no trauma Abdomen: Benign, soft, nontender nondistended Assessment/Plan 1. Nausea (R11.0: Nausea) Ordered: cholestyramine, = 1 pac (more content not included)... Normal [facility] Comment on above: Result Comment: Elec tronically Signed By: Sophia HDZ, Tammie Parada\.br\Date and Time Signed: 05/04/24 14:25 EST [facility] 05-04-20 [facility] [place] [facility] Case Information Case Priority: None Programs: -- Referral Source: Tile Professional Referral Reason: Care coordination Case Type: Transition Care Management Risk Score: -- Case Status: Enrolled (April 16, 2024) Date Assigned: April 16, 2024 Assigned By: Pop Alvarez Date Enrolled: April 16, 2024 Assigned Primary Personnel: Pop Alvarez Assigned Secondary Personnel: -- Case Physician: Berry Canales Problems Ongoing Adult BMI 38.0-38.9 kg/sq m Allergic rhinitis Anemia Annual physical exam Anti-citrullinated protein antibody detected Asthma Bilateral otitis media BMI 40.0-44.9, adult Bronchitis Cellulitis, leg Chronic peripheral venous hypertension with lower extremity complication Chronic sinusitis Chronically ill Colitis Cough Derangement of knee Diverticular disease DM2 (diabetes mellitus, type 2) Esophageal web Exposure to COVID-19 virus Fluid level behind tympanic membrane of both ears Gastroesophageal reflux disease without esophagitis Hemorrhoids History of colitis Hospital discharge follow-up Hx of pulmonary embolus Hypothyroidism Hypoxemia Left lower lobe pneumonia Low hemoglobin Lung nodules Moderate asthma without complication Morbid obesity with BMI of 40.0-44.9, adult Nasal congestion Non-insulin dependent type 2 diabetes mellitus Obesity due to excess calories Oral thrush Pre-op exam Rheumatoid arthritis involving multiple sites with positive rheumatoid factor Right otitis media S/P shoulder surgery Shingles rash Shortness of breath Smoker Viral gastritis Weight loss, unintentional Wheezing Wound of skin Historical Arthritis Asthma Change in bowel habits COVID-19 Dysphagia Loose stools Nausea Procedure/Surgical History EGD (esophagogastroduode noscopy) gastric outlet reduction (05/21/2022), Colonoscopy (05/09/2021), EGD - Esophagogastroduoden oscopy (05/09/2021), Cataract extraction, Cholecystectomy, Foot repair, Hysterectomy, Knee replacement, Shoulder, Tonsillectomy and adenoidectomy; age 12 or over. Home Medications celecoxib 200 mg Cap, 200 mg= 1 cap(s), Oral, BID cyclobenzaprine 10 mg Tab, 10 mg= 1 tab(s), Oral, TID, PRN DuoNeb 2.5 mg-0.5 mg/3 mL Soln-Inh, 3 mL, Inhalation, QID Flonase 0.05 mg/inh nasal spray, 2 spray(s), Nasal, Daily furosemide 20 mg Tab, See Instructions, 4 refills Klor-Con M20 oral tablet, extended release, See Instructions levothyroxine 137 mcg (0.137 mg) Tab, See Instructions, 4 refills metoprolol succinate 50 mg ER Tab, 50 mg= 1 tab(s), Oral, Daily montelukast 10 mg Tab, See Instructions Mucinex, 600 mg, Oral, Daily ondansetron 4 mg Tab, 4 mg= 1 tab(s), Oral, As Directed, PRN Ozempic (1 mg dose), See Instructions Pantoprazole [address] Tab, 40 mg= 1 tab(s), Oral, Daily ProAir RespiClick 90 mcg/inh inhalation powder, 2 puff(s), Inhalation, q4hr, PRN, 11 refills Prolia, 60 mg, SubCutaneous, q6mo Rinvoq 15 mg oral tablet, extended release, Oral, Daily Spiriva Respimat 1.25 mcg/inh inhalation aerosol, 2 inh, Inhalation, Daily Tylenol, 1000 mg, Oral, q8hr, PRN Wixela Inhub 250 mcg-50 mcg inhalation powder, See Instructions Allergies Cefzil (Unknown) Eliquis (Unknown) Keflex (Hives) Pradaxa (Unknown) penicillin G benzathine (Hives) Social History Alcohol - Low Risk, 01/08/2024 Current. Beer, Wine. 1-2 times per year., 04/27/2024 Employment/School - Low Risk, 05/22/2022 Exercise - Does not exercise, 05/22/2022 Home/Environment - Low Risk, 05/22/2022 Nutrition/Health - Low Risk, 05/22/2022 Sexual - No Risk, 05/22/2022 Substance Abuse - Denies Substance Abuse, 01/20/2024 Current. Previous treatment: None., 04/27/2024 Tobacco - Denies Tobacco Use, 01/20/2024 Never (less than 100 in lifetime) Tobacco Use:. Never Smokeless Tobacco Use:. Cigarettes, 04/27/2024 Family History Cancer: Mother. Diabetes mellitus type 2: Sister. Stroke: Father. Screenings and Assessments 04/16/24 14:34:00 Result Name Value Comment Phone Call Monitoring Consent Agreed to continue call Phone Verification Patient Information Full name, street address and date of verified CM Program Enrollment Provides verbal consent for enrollment Goals and Interventions Care Plan Progress Note TCM#4- Spoke with patient for final TCM, states things are 'going good.' States her left shoulder is feeling 'good.' Patient denies any pain. Reports she is able to go without the sling starting today. Notes she will not begin any therapy until after her shoulder replacement surgery. Patient notes she has an appointment 06/05/24 to discuss further plans. Patient does complete her hand exercises as directed. Reports left shoulder incisions look 'good.' Denies fever or chills. Patient is eating and drinking well. Notes some nausea off and on. Patient has follow up with today and will di (more content not included)... Normal [facility] Reminderson 05-04-2024 Reminders Reminders - From: Pop Alvarez To: [facility] [place] Guide; Sent: 05/04/2024 09:30:12 EST Show up: 05/04/2024 09:30:00 EST Subject: TCM#5 Due Date/Time: 05/11/2024 09:29:00 EST Reminder/Recall Normal [facility] Family Medicine Office/Clini c Noteon 04-27-2024 Family Medicine Office/Clinic Note Family Medicine Office/Clinic Note [facility] Staff Carolina is a 63 year old female presenting with TCM: Hospital: [facility] Admission date: 04/14 Discharge date: 04/15 Symptoms the patient presented with: left periprosthetic infection s/p shoulder surgery Current concerns: Had shoulder surgery April 14 Has swelling of legs and feet since surgery also coughing History of Present Illness pt presents today for TCM visit. had shoulder surgery Review of Systems PHQ Score Initial Depression Screen Score: 0 SCORE Physical Exam Vitals & Measurements T: 36.4 ???C(Temporal Artery) HR: 88(Peripheral) RR: 18 BP: 128/84 SpO2: 96% HT: 59 in HT: 149.0 cm WT: 87.5 kg WT: 192.5 lb BMI: 39.41 General: alert, no acute distress ENMT: oral mucosa moist, no pharyngeal erythema or exudate Cardiovascular: regular rate and rhythm, normal peripheral perfusion Respiratory: Lungs CTA, respirations non labored Extremities: no deformity, no trauma Neurological: oriented x 4, LOC appropriate for age, CN II-XII intact, motor strength equal & normal bilaterally, speech normal JOHANNA lower leg swelling Assessment/Plan 1. S/P shoulder surgery, (Z98.890: Other specified postprocedural states)S/P shoulder surgery pt presents today for TCM visit. had shoulder prosthesis removed. Currently has a temporary spacer in and will have total shoulder replacement in 3 months. pt is doing well. pain is controlled. is using a sling. follows up with surgeon in 5 weeks. pt states she has had a mucous cough since surgery. lungs are clear in office today. pt encouraged to take mucinex. encouraged her to get up and walk around every hour and continue taking Lasix to get the extra fluid off her legs. RTC as needed Ordered: [facility] 14 day disch [id number] 2. BMI 39.0-39.9,adult (Z68.39: Body mass index [BMI] 39.0-39.9, adult) BMI education given 3. Exogenous obesity (E66.09: Other obesity due to excess calories) see above 4. Non-smoker (Z78.9: Other specified health status) continue not smoking Follow-up No qualifying data available Problem List/Past Medical History Ongoing Adult BMI 38.0-38.9 kg/sq m Allergic rhinitis Anemia Annual physical exam Anti-citrullinated protein antibody detected Asthma Bilateral otitis media BMI 40.0-44.9, adult Bronchitis Cellulitis, leg Chronic peripheral venous hypertension with lower extremity complication Chronic sinusitis Chronically ill Colitis Cough Derangement of knee Diverticular disease DM2 (diabetes mellitus, type 2) Esophageal web Exposure to COVID-19 virus Fluid level behind tympanic membrane of both ears Gastroesophageal reflux disease without esophagitis Hemorrhoids History of colitis Hospital discharge follow-up Hx of pulmonary embolus Hypothyroidism Hypoxemia Left lower lobe pneumonia Low hemoglobin Lung nodules Moderate asthma without complication Morbid obesity with BMI of 40.0-44.9, adult Nasal congestion Non-insulin dependent type 2 diabetes mellitus Obesity due to excess calories Oral thrush Pre-op exam Rheumatoid arthritis involving multiple sites with positive rheumatoid factor Right otitis media S/P shoulder surgery Shingles rash Shortness of breath Smoker Viral gastritis Weight loss, unintentional Wheezing Wound of skin Historical Arthritis Asthma Change in bowel habits COVID-19 Dysphagia Loose stools Nausea Procedure/Surgical History EGD (esophagogastroduode noscopy) gastric outlet reduction (05/21/2022), Colonoscopy (05/09/2021), EGD - Esophagogastroduoden oscopy (05/09/2021), Cataract extraction, Cholecystectomy, Foot repair, Hysterectomy, Knee replacement, Shoulder, Tonsillectomy and adenoidectomy; age 12 or over. Medications aspirin, 81 mg, Oral, Daily celecoxib 200 mg Cap, 200 mg= 1 cap(s), Oral, BID Colace, 100 mg, Oral, BID cyclobenzaprine 10 mg Tab, 10 mg= 1 tab(s), Oral, TID, PRN doxycycline, 100 mg, Oral, q12hr DuoNeb 2.5 mg-0.5 mg/3 mL Soln-Inh, 3 mL, Inhalation, QID Flonase 0.05 mg/inh nasal spray, 2 spray(s), Nasal, Daily furosemide 20 mg Tab, See Instructions, 4 refills Klor-Con M20 oral tablet, extended release, See Instructions levothyroxine 137 mcg (0.137 mg) Tab, See Instructions, 4 refills metoprolol succinate 50 mg ER Tab, 50 mg= 1 tab(s), Oral, Daily montelukast 10 mg Tab, See Instructions Mucinex, 600 mg, Oral, Daily ondansetron 4 mg Tab, 4 mg= 1 tab(s), Oral, As Directed, PRN Ozempic (1 mg dose), See Instructions Pantoprazole [address] Tab, 40 mg= 1 tab(s), Oral, Daily ProAir RespiClick 90 mcg/inh inhalation powder, 2 puff(s), Inhalation, q4hr, PRN, 11 refills Prolia, 60 mg, SubCutaneous, q6mo Rinvoq 15 mg oral tablet, extended release, Oral, Daily Spiriva Respimat 1.25 mcg/inh inhalation aerosol, 2 inh, Inhalation, Daily Tylenol, 1000 mg, Oral, q8hr, PRN Wixela Inhub 250 mcg-50 mcg inhalation powder, See Instructions Allergies Cefzil (Unknown) (more content not included)... Normal [facility] Comment on above: Result Comment: Elec tronically Signed By: Berry Canales\.br\Date and Time Signed: 04/27/24 11:14 EDT Renea 04-24-2024 MAKEDAN Telephone (OTMB) MATTCAROLINA ([id number]) 1960 F Date Time Provider Department 04/24/24 STEVE GAMBINO [facility] During your visit today, we recorded the following information about you: Steve Gambino PA 04/24/2024 9:08 AM Signed Show called in to report swelling in bilateral lower extremities. She says it is worse than usual. She reports prior swelling in her legs from prior antibiotic usage and she has concerns that the doxycycline is causing this. We discussed the doxycycline could be causing this, however we frequently see lower extremity swelling after surgery. She has been up walking around she says and is going away this weekend and plans to do more walking. We discussed actually being on her feet can make the swelling worse and I would recommend trying to elevate her feet as much as possible. We discussed wearing longer socks to simulate compression stockings. Unfortunately we do keep her on the antibiotics at least until Saturday when we can finalize her cultures from surgery. And she will give us an update early next week. If she continues to have swelling we will discuss with Dr. Holly about possible antibiotic change. Allergies As of Date: 04/24/2024 Noted Allergy Reaction KEFLEX (CEPHALEXIN) 10/18/2004 4 - Hives PENICILLINS 01/05/2004 4 - Hives ELIQUIS (APIXABAN) 04/14/2024 4 - Hives TREE NUTS 04/14/2024 10 - Anaphylaxis Date Reviewed: 04/22/2024 Reviewed by: Linda Goodman MA - Fully Assessed Prescriptions as of 04/24/2024 - oxyCODONE IR (ROXICODONE) 5 mg immediate release tablet Take 1 tablet by mouth every 8 hours as needed for pain for up to 7 days. - doxycycline hyclate (VIBRAMYCIN) 100 mg capsule Take 1 capsule (100 mg) by mouth two times a day for 28 days. - aspirin, enteric coated (ADULT LOW DOSE ASPIRIN) 81 mg EC tablet Take 1 tablet by mouth two times a day for 14 days. - docusate sodium (COLACE) 100 mg capsule Take 1 capsule by mouth two times a day for 14 days. - ondansetron (ZOFRAN) 4 mg tablet Take 1 tablet by mouth every 8 hours as needed for nausea/vomiting. - acetaminophen (TYLENOL EXTRA STRENGTH) 500 mg tablet Take 2 tablets by mouth every 8 hours as needed for pain. - L.acidophilus-L.rham nosus (PROBIOTIC) 15 billion cell capsule Take 1 capsule by mouth once daily. Align - furosemide (LASIX) 20 mg tablet Take 20 mg by mouth once daily. - metoprolol succinate ER (TOPROL XL) 100 mg Take 50 mg by mouth once daily. - potassium chloride ER (KLOR-CON) 20 mEq tablet Take 20 mEq by mouth two times a day. - tiotropium bromide (SPIRIVA WITH HANDIHALER INHALATION) Inhale 1 Puff as instructed once daily. - montelukast sodium (SINGULAIR ORAL) Take 10 mg by mouth two times a day. - semaglutide (OZEMPIC) 2 mg/dose (8 mg/3 mL) pen injector Inject 2 mg subcutaneously one time a week. - ondansetron orally disintegrating (ZOFRAN ODT) 4 mg disintegrating tablet Take 1 tablet by mouth every 8 hours as needed. - RINVOQ 15 mg tablet TAKE 1 TABLET BY MOUTH 1 TIME A DAY. - celecoxib (CELEBREX) 200 mg capsule TAKE 1 CAPSULE BY MOUTH TWICE A DAY - levothyroxine (SYNTHROID) 75 mcg tablet TAKE 1.5 TABLETS ON SATURDAY, SATURDAY, SATURDAY, SATURDAY AND 2 TABLETS THE OTHER 3 DAYS - EPIPEN 2-PANCHITO 0.3 mg/0.3 mL (1:1,000) atIn - LANSOPRAZOLE 30 mg capsule Take 1 capsule by mouth daily at bedtime. - fluticasone (FLONASE) 50 mcg/actuation nasal spray 1 [place] daily at bedtime. in each nostril. - Cholecalciferol, Vitamin D3, 1,000 unit ORAL Tab Take 1 tablet by mouth once daily. - CITRACAL 500 MG (2,376 MG) EFFERVESCENT TAB Take one(1) tablet two(2) times daily. - ADVAIR 250/50 DISKUS Inhale 1 Puff as instructed two times a day. Advair diskus 500/50 Problem List As Of Date 04/24/2024 Noted Resolved ALOPECIA AREATA [L63.9] 05/27/2006 HYPOTHYROIDISM [...] pos*05/09/2022 Rheumatoid factor positive [R76.8] 05/09/2022 Encounter for long-term (current) use of NSAIDs*10/01/2023 Vitamin D deficiency [E55.9] 10/01/2023 Personal history of other medical treatment [Z9*10/01/2023 Bilateral chronic kne (more content not included)... Normal [facility] CNOVon 04-22-2024 CNOV Office Visit (ORTHIN) CAROLINA GUTIERREZ ([id number]) 1960 F Date Time Provider Department 04/22/24 9:00 AM STEVE GAMBINO During your visit today, we recorded the following information about you: Steve Gambino PA 04/22/2024 9:29 AM Addendum - Stop at the front office attendant to schedule a follow up with Dr. Holly in 5-7 weeks - Begin to wean out of the sling during the day starting in 3 weeks. Continue to wear the sling at night for 5 more weeks - No active motion of the surgical arm. No reaching, pulling, pushing. You have about a 1 pound weight restriction - Continue to monitor the shoulder/incision for signs of infection - Ok to shower, but do not scrub the incision. No lotions or creams on incision. Avoid pools, baths, hot tubs Steve Gambino PA 04/22/2024 9:50 AM Signed First postoperative clinic visit Carolina had Removal Of Prosthesis, Includes Debridement And Synovectomy When Performed; Humeral And Glenoid Components (eg, Total Shoulder) - Left and Manual Prep And Insertion Deep Drug Delivery Dev Intra-articular - Left on 04/14/2024 with John Holly. Overall they say they're doing well. They are taking oxycodone and tylenol for pain. No complications or concerns at the moment. Denies wound drainage. Continues to wear the sling. Her labs have come back negative so far for infection. She has been taking the doxycycline She is not having any pain at the moment but does have pain at night. Sling: In place. No issues Wound is healing well, no drainage, unusual inflammation or edema. Incision care discussed Dressing removed: Dressing left on as she is only 1 week from surgery. They will remove in 1 week Sutures removed:Not needed Xrays this visit: Prior arthroplasty is removed and her cement antibiotic spacer is stable compared to postop x-ray Diagnosis: S/p Removal Of Prosthesis, Includes Debridement And Synovectomy When Performed; Humeral And Glenoid Components (eg, Total Shoulder) - Left and Manual Prep And Insertion Deep Drug Delivery Dev Intra-articular - Left PLAN Return to clinic in 5-[address] Holly. Begin to wean out of the sling in 2 weeks. Keep sling on at night for the next 4 weeks No PT for the shoulder Discussed restrictions of no active motion of the surgical arm, no forceful motions/lifting/push ing. 1 pound weight restriction. Home exercises were demonstrated and handout given. Advised to continue to monitor for signs of infection, and proper wound care. Xrays are not needed before next visit. Continue with Doxycycline for 5 more weeks until she is 6 weeks from surgery. Carolina Gutierrez has requested a refill. Requested Prescriptions Signed Prescriptions Disp Refills oxyCODONE IR (ROXICODONE) 5 mg immediate release tablet 21 tablet 0 Sig: Take 1 tablet by mouth every 8 hours as needed for pain for up to 7 days. doxycycline hyclate (VIBRAMYCIN) 100 mg capsule 56 capsule 0 Sig: Take 1 capsule (100 mg) by mouth two times a day for 28 days. Encounter Diagnosis ICD-10-CM 1. S/P shoulder surgery Z98.890 XR SHOULDER GENERAL 3V OR MORE AP/TRUE AP/OTHER LEFT oxyCODONE IR (ROXICODONE) 5 mg immediate release tablet doxycycline hyclate (VIBRAMYCIN) 100 mg capsule 2. Loose orthopedic implant, subsequent encounter T84.039D XR SHOULDER GENERAL 3V OR MORE AP/TRUE AP/OTHER LEFT oxyCODONE IR (ROXICODONE) 5 mg immediate release tablet doxycycline hyclate (VIBRAMYCIN) 100 mg capsule PDMP/OARRS checked. No concerns. The approved medication requests have been transmitted electronically. ALIA Sanders Referring Provider: JOHN HOLLY [[id number]] Allergies As of Date: 04/22/2024 Noted Allergy Reaction KEFLEX (CEPHALEXIN) 10/18/2004 4 - Hives PENICILLINS 01/05/2004 4 - Hives ELIQUIS (APIXABAN) 04/14/2024 4 - Hives TREE NUTS 04/14/2024 10 - Anaphylaxis Date Reviewed: 04/22/2024 Reviewed by: Linda Goodman MA - Fully Assessed Reason for Visit: Post Op [174] Primary Visit Diagnosis:S/P shoulder surgery [Z98.890] Other Visit Diagnosis:Loose orthopedic implant, subsequent encounter [T84.039D] Order(s):XR SHOULDER GENERAL 3V OR MORE AP/TRUE AP/OTHER LEFT [[id number]] Order #: [id number] FUTURE oxyCODONE IR (ROXICODONE) 5 mg immediate release tabletTake 1 tablet by mouth every 8 hours as needed for pain for up to 7 days.Disp: 21 tabletRfl: 0 doxycycline hyclate (VIBRAMYCIN) 100 mg capsuleTake 1 capsule (100 mg) by mouth two times a day for 28 days.Disp: 56 capsuleRfl: 0 Prescriptions as of 04/22/2024 - oxyCODONE IR (ROXICODONE) 5 mg immediate release tablet Take 1 tablet by mouth every 8 hours as needed for pain for up to 7 days. - doxycycline hyclate (VIBRAMYCIN) 100 mg capsule Take 1 capsule (100 mg) by mouth two times a day for 28 days. - aspirin, enteric coated (ADULT LOW DOSE ASPIRIN) 81 mg EC tablet Take 1 tablet by mouth two times (more content not included)... Normal [facility] XR SHLDR >/=3V AP/ZAN AP/OTH R LTon 04-22-2024 XR SHLDR >/=3V AP/ZAN AP/OTHR LT * * *Final Report* * * DATE OF EXAM: Apr 22 2024 9:12AM CCX 5252 - XR SHLDR >/=3V AP/ZAN AP/OTHR LT / PROCEDURE REASON: multiple diagnoses * * * * Physician Interpretation * * * * EXAMINATION / TECHNIQUE: XR SHLDR >/=3V AP/ZAN AP/OTHR LT PATIENT/TECHNOLOGIST PROVIDED HISTORY: post op left shoulder CLINICAL INFORMATION ( PROVIDED BY ORDERING CLINICIAN) : S/P shoulder surgery Loose orthopedic implant, subsequent encounter COMPARISON: Left shoulder radiograph 04/14/2024, 10/13/2023 RESULT: Postoperative changes of left total shoulder arthroplasty with subsequent hardware removal and placement of cement spacer. Irregular bone loss of the distal clavicle and glenoid appear similar to prior. Cortical irregularity at the lateral cortex of the humeral neck also appears similar to prior and likely reflects a small fracture adjacent to the cement filling. No dislocation. Alignment of the shoulder is anatomic. There are a few small foci of gas in the shoulder, decreased from prior. Atherosclerotic calcification is noted in the aorta. IMPRESSION: Postoperative findings as detailed with similar appearance of proximal humeral bone fragment. Interval decrease soft tissue gas for which attention on follow-up is recommended. Project Product Manager: DEBBIE Transcribe Date/Time: Apr 22 2024 9:24A Dictated by : RUTHIE GUTIERREZ MD This examination was interpreted and the report reviewed and electronically signed by: MALOU CAICEDO MD on Apr 22 2024 12:06PM EST [id number] Normal [facility] XR Shoulder - left 3 Viewson 04-22-2024 IMPRESSION: Postoperative findings as detailed with similar appearance of proximal humeral bone fragment. Interval decrease soft tissue gas for which attention on follow-up is recommended. Project Product Manager: PSCB Transcribe Date/Time: Apr 22 2024 9:24A Dictated by : RUTHIE GUTIERREZ MD This examination was interpreted and the report reviewed and electronically signed by: MALOU CAICEDO MD on Apr 22 2024 12:06PM EST DIVISION OF RADIOLOGY * * *Final Report* * * DATE OF EXAM: Apr 22 2024 9:12AM CCX 5252 - XR SHLDR >/=3V AP/ZAN AP/OTHR LT / PROCEDURE REASON: multiple diagnoses * * * * Physician Interpretation * * * * EXAMINATION / TECHNIQUE: XR SHLDR >/=3V AP/ZAN AP/OTHR LT PATIENT/TECHNOLOGIST PROVIDED HISTORY: post op left shoulder CLINICAL INFORMATION ( PROVIDED BY ORDERING CLINICIAN) : S/P shoulder surgery Loose orthopedic implant, subsequent encounter COMPARISON: Left shoulder radiograph 04/14/2024, 10/13/2023 RESULT: Postoperative changes of left total shoulder arthroplasty with subsequent hardware removal and placement of cement spacer. Irregular bone loss of the distal clavicle and glenoid appear similar to prior. Cortical irregularity at the lateral cortex of the humeral neck also appears similar to prior and likely reflects a small fracture adjacent to the cement filling. No dislocation. Alignment of the shoulder is anatomic. There are a few small foci of gas in the shoulder, decreased from prior. Atherosclerotic calcification is noted in the aorta. DIVISION OF RADIOLOGY Provider, [facility] - 04/22/2024 * * *Final Report* * * DATE OF EXAM: Apr 22 2024 9:12AM CCX 5252 - XR SHLDR >/=3V AP/ZAN AP/OTHR LT / PROCEDURE REASON: multiple diagnoses * * * * Physician Interpretation * * * * EXAMINATION / TECHNIQUE: XR SHLDR >/=3V AP/ZAN AP/OTHR LT PATIENT/TECHNOLOGIST PROVIDED HISTORY: post op left shoulder CLINICAL INFORMATION ( PROVIDED BY ORDERING CLINICIAN) : S/P shoulder surgery Loose orthopedic implant, subsequent encounter COMPARISON: Left shoulder radiograph 04/14/2024, 10/13/2023 RESULT: Postoperative changes of left total shoulder arthroplasty with subsequent hardware removal and placement of cement spacer. Irregular bone loss of the distal clavicle and glenoid appear similar to prior. Cortical irregularity at the lateral cortex of the humeral neck also appears similar to prior and likely reflects a small fracture adjacent to the cement filling. No dislocation. Alignment of the shoulder is anatomic. There are a few small foci of gas in the shoulder, decreased from prior. Atherosclerotic calcification is noted in the aorta. IMPRESSION IMPRESSION: Postoperative findings as detailed with similar appearance of proximal humeral bone fragment. Interval decrease soft tissue gas for which attention on follow-up is recommended. Project Product Manager: DEBBIE Transcribe Date/Time: Apr 22 2024 9:24A Dictated by : RUTHIE GUTIERREZ MD This examination was interpreted and the report reviewed and electronically signed by: MALOU CAICEDO MD on Apr 22 2024 12:06PM EST [facility] Radiology Study observation (narrative) [facility] XR Shoulder - left 3 ViewsOr dered By: [facility] Case Information Case Priority: None Programs: -- Referral Source: Tile Professional Referral Reason: Care coordination Case Type: Transition Care Management Risk Score: -- Case Status: Enrolled (April 16, 2024) Date Assigned: April 16, 2024 Assigned By: Pop Alvarez Date Enrolled: April 16, 2024 Assigned Primary Personnel: Pop Alvarez Assigned Secondary Personnel: -- Case Physician: Berry Canales Problems Ongoing Adult BMI 38.0-38.9 kg/sq m Allergic rhinitis Anemia Annual physical exam Anti-citrullinated protein antibody detected Asthma Bilateral otitis media BMI 40.0-44.9, adult Bronchitis Cellulitis, leg Chronic peripheral venous hypertension with lower extremity complication Chronic sinusitis Chronically ill Colitis Cough Derangement of knee Diverticular disease DM2 (diabetes mellitus, type 2) Esophageal web Exposure to COVID-19 virus Fluid level behind tympanic membrane of both ears Gastroesophageal reflux disease without esophagitis Hemorrhoids History of colitis Hospital discharge follow-up Hx of pulmonary embolus Hypothyroidism Hypoxemia Left lower lobe pneumonia Low hemoglobin Lung nodules Moderate asthma without complication Morbid obesity with BMI of 40.0-44.9, adult Nasal congestion Non-insulin dependent type 2 diabetes mellitus Obesity due to excess calories Oral thrush Pre-op exam Rheumatoid arthritis involving multiple sites with positive rheumatoid factor Right otitis media Shingles rash Shortness of breath Smoker Viral gastritis Weight loss, unintentional Wheezing Wound of skin Historical Arthritis Asthma Change in bowel habits COVID-19 Dysphagia Loose stools Nausea Procedure/Surgical History EGD (esophagogastroduode noscopy) gastric outlet reduction (05/21/2022), Colonoscopy (05/09/2021), EGD - Esophagogastroduoden oscopy (05/09/2021), Cataract extraction, Cholecystectomy, Foot repair, Hysterectomy, Knee replacement, Shoulder, Tonsillectomy and adenoidectomy; age 12 or over. Home Medications aspirin, 81 mg, Oral, Daily celecoxib 200 mg Cap, 200 mg= 1 cap(s), Oral, BID Colace, 100 mg, Oral, BID cyclobenzaprine 10 mg Tab, 10 mg= 1 tab(s), Oral, TID, PRN doxycycline, 100 mg, Oral, q12hr DuoNeb 2.5 mg-0.5 mg/3 mL Soln-Inh, 3 mL, Inhalation, QID Flonase 0.05 mg/inh nasal spray, 2 spray(s), Nasal, Daily furosemide 20 mg Tab, See Instructions, 4 refills Klor-Con M20 oral tablet, extended release, See Instructions levothyroxine 137 mcg (0.137 mg) Tab, See Instructions, 4 refills metoprolol succinate 50 mg ER Tab, 50 mg= 1 tab(s), Oral, Daily montelukast 10 mg Tab, See Instructions Mucinex, 600 mg, Oral, Daily ondansetron 4 mg Tab, 4 mg= 1 tab(s), Oral, As Directed, PRN oxycodone, 5 mg, Oral, q6hr, PRN Ozempic (1 mg dose), See Instructions Pantoprazole [address] Tab, 40 mg= 1 tab(s), Oral, Daily ProAir RespiClick 90 mcg/inh inhalation powder, 2 puff(s), Inhalation, q4hr, PRN, 11 refills Prolia, 60 mg, SubCutaneous, q6mo Rinvoq 15 mg oral tablet, extended release, Oral, Daily Spiriva Respimat 1.25 mcg/inh inhalation aerosol, 2 inh, Inhalation, Daily Tylenol, 1000 mg, Oral, q8hr, PRN Wixela Inhub 250 mcg-50 mcg inhalation powder, See Instructions Allergies Cefzil (Unknown) Eliquis (Unknown) Keflex (Hives) Pradaxa (Unknown) penicillin G benzathine (Hives) Social History Alcohol - Low Risk, 01/08/2024 Current, Beer, Wine, 1-2 times per year, 05/22/2022 Employment/School - Low Risk, 05/22/2022 Exercise - Does not exercise, 05/22/2022 Home/Environment - Low Risk, 05/22/2022 Nutrition/Health - Low Risk, 05/22/2022 Sexual - No Risk, 05/22/2022 Substance Abuse - Denies Substance Abuse, 01/20/2024 Current, Marijuana, 1-2 times per year, 01/20/2024 Tobacco - Denies Tobacco Use, 01/20/2024 Never (less than 100 in lifetime) Tobacco Use:. Never Smokeless Tobacco Use:. Cigarettes, Household tobacco concerns: No., 03/23/2024 Family History Cancer: Mother. Diabetes mellitus type 2: Sister. Stroke: Father. Screenings and Assessments 04/16/24 14:34:00 Result Name Value Comment Phone Call Monitoring Consent Agreed to continue call Phone Verification Patient Information Full name, street address and date of verified CM Program Enrollment Provides verbal consent for enrollment Goals and Interventions Care Plan Progress Note Admit Date: 04/14/24 [facility] Date of Discharge: 04/15/24 Follow-up appointment scheduled? yes, 04/27/24 TCM f/u with PCP at 1040 Did you understand your discharge instructions? yes Are you able to follow them? yes Did you receive new medications? yes, Tylenol 1000 mg q 8 hr PRN, ASA 81 mg QD x 14 days, Colace 100 mg BID x 14 days, doxycycline 100 mg BID x 14 days, zofran 4 mg q 8 hr PRN, oxycodone IR 5 mg q 6 hr x 7 days PRN Have you filled (more content not included)... [facility] CNDSon 04-15-2024 CNDS HNO ID: [id number] Author: ANDREW JAIMES MD Service: Orthopaedic Surgery Author Type: Resident Type: Discharge Summary Filed: 04/15/2024 16:04 Note Text: Attestation signed by John Holly MD at 04/23/2024 5:31 PM Staff Addendum Patient was admitted to the hospital postoperatively. I agree with the findings and plan as documented and have discussed the case and management of the patient's care with my executive administrative assistant. John Holly M.D. M.M.Sc. Shoulder and Elbow Surgeon Orthopaedic Surgery Department [place], [place] [address] Tell: [phone] Appt: ORTHOPAEDIC SURGERY Discharge Summary PATIENT NAME: Carolina Gutierrez ADMISSION DATE: 04/14/2024 DISCHARGE DATE: 04/15/2024 Attending Physician: No att. providers found Reason for Hospitalization: LEFT Periprosthetic Should Infection Principal Problem: S/P shoulder surgery (POA: Yes) Active Problems: Postoperative pain (POA: Unknown) Resolved Problems: * No resolved hospital problems. * Operations During Hospitalization: LEFT Explant rTSA + Spacer Procedures During Hospitalization: No procedures performed Hospital Course: Carolina Gutierrez is a 63 year old female who presented for LEFT Shoulder Infection. On 04/15/2024, she underwent LEFT Explant rTSA + Spacer. Surgery was uneventful and after a brief stay in the PACU, she transferred to the regular nursing floor. Pain was well controlled. Intake and output were closely monitored. DVT prophylaxis was managed by ASA 81mg BID and intermittent compression stockings. Electrolytes were monitored with labs and replaced as needed. The patient had an unremarkable recovery, and diet was advanced as tolerated. The patient was deemed appropriate for discharge home on 04/15/2024 as she was afebrile, hemodynamically stable, tolerating a diet, pain controlled on oral meds, and ambulating without difficulty. Discharge deep vein thrombosis chemoprophylaxis will be ASA 81mg BID for 6 weeks. Follow up will occur in clinic with Dr. Holly in 2-3 weeks. Labs and Procedures Pending at Discharge: Culture Results (pending) Consulting Teams During Hospitalization: None Patient Condition @ Discharge: Stable Discharge Disposition: Home with Self Care Discharge Medications: Medication List START taking these medications acetaminophen 500 mg tablet Commonly known as: TYLENOL EXTRA STRENGTH Take 2 tablets by mouth every 8 hours as needed for pain. aspirin, enteric coated 81 mg EC tablet Commonly known as: ADULT LOW DOSE ASPIRIN Take 1 tablet by mouth two times a day for 14 days. docusate sodium 100 mg capsule Commonly known as: COLACE Take 1 capsule by mouth two times a day for 14 days. doxycycline hyclate 100 mg capsule Commonly known as: VIBRAMYCIN Take 1 capsule (100 mg) by mouth two times a day for 14 days. ondansetron 4 mg tablet Commonly known as: ZOFRAN Take 1 tablet by mouth every 8 hours as needed for nausea/vomiting. oxyCODONE IR 5 mg immediate release tablet Commonly known as: ROXICODONE Take 1 tablet by mouth every 6 hours as needed for pain for up to 7 days. CHANGE how you take these medications levothyroxine 75 mcg tablet Commonly known as: SYNTHROID TAKE 1.5 TABLETS ON SATURDAY, SATURDAY, SATURDAY, SATURDAY AND 2 TABLETS THE OTHER 3 DAYS What changed: See the new instructions. CONTINUE taking these medications ADVAIR DISKUS 250-50 mcg/dose inhaler Generic drug: fluticasone-salmeter ol Inhale 1 Puff as instructed two times a day. Advair diskus 500/50 celecoxib 200 mg capsule Commonly known as: CeleBREX TAKE 1 CAPSULE BY MOUTH TWICE A DAY cholecalciferol 1,000 unit Tab tablet Commonly known as: VITAMIN D3 CITRACAL 500 mg Tbef Generic drug: Calcium Citrate fluticasone 50 mcg/actuation nasal spray Commonly known as: FLONASE furosemide 20 mg tablet Commonly known as: LASIX lansoprazole 30 mg capsule Commonly known as: PREVACID metoprolol succinate ER 100 mg Commonly known as: TOPROL XL ondansetron orally disintegrating 4 mg disintegrating tablet Commonly known as: ZOFRAN ODT Take 1 tablet by mouth every 8 hours as needed. potassium chloride ER 20 mEq tablet Commonly known as: KLOR-CON PROBIOTIC 15 billion cell capsule Generic drug: L.acidophilus-L.rham nosus RINVOQ 15 mg tablet Generic drug: upadacitinib ER TAKE 1 TABLET BY MOUTH 1 TIME A DAY. semaglutide 2 mg/dose (8 mg/3 mL) pen injector Commonly known as: OZEMPIC Inject 2 mg subcutaneously one time a week. SINGULAIR ORAL SPIRIVA WITH HANDIHALER INHALATION ASK your doctor about these medications EPIPEN 2-PANCHITO 0.3 mg/0.3 mL auto-injector Generic drug: EPINEPHrine Where to Get Your Medications These medications were sent to [email or web address] [facility][email or web address] (more content not included)... Normal [facility] 04-15-2024 MAKEDAN Telephone (DEBORAH) CAROLINA GUTIERREZ ([id number]) 1960 F Date Time Provider Department 04/15/24 JENY ARRIAZA During your visit today, we recorded the following information about you: Jeny Arriaza APRN.CNP 04/15/2024 1:49 PM Signed DOS: 04/14/24 Type of surgery: REMOVAL OF PROSTHESIS, INCLUDES DEBRIDEMENT AND SYNOVECTOMY WHEN PERFORMED; HUMERAL AND GLENOID COMPONENTS (EG, TOTAL SHOULDER) (Left) Catheter site: left IS Solution: 0.2% Ropivacaine Rates: 59 Venkata [phone] Carolina Switched to home-going pump, educated on its use, discussed LA/SE and s/s that should be reported, patient/famiyl verbalized understanding. Will follow up with phone call. Elvi Cook RN 04/16/2024 9:32 AM Signed DOS: 04/14/24 Type of surgery: REMOVAL OF PROSTHESIS, INCLUDES DEBRIDEMENT AND SYNOVECTOMY WHEN PERFORMED; HUMERAL AND GLENOID COMPONENTS (EG, TOTAL SHOULDER) (Left) Catheter site: left IS Solution: 0.2% Ropivacaine Rates: 59 Venkata [phone] Carolina 04/16 Called and talked to pt, states pain level is: 5 The pump reads: 863 Pt states catheter dressing is intact, denies: redness, fever, draining, edema, pain Does pt c/o SOB, hoarse voice, difficulty swallowing Yes: c/o SOB, patient instructed to place pump on hold to see if it resolves, if not patient is advised to go to the ER if SOB persists. Denies c/o metallic taste in mouth, ringing in ears, dizziness etc. Pt is able to move: fingers Will call pt again tomorrow. Comments: see above comment regarding SOB How many pain pills has the patient used in the last 24 hours? oxycodone Elvi Cook RN 04/17/2024 1:15 PM Signed DOS: 04/14/24 Type of surgery: REMOVAL OF PROSTHESIS, INCLUDES DEBRIDEMENT AND SYNOVECTOMY WHEN PERFORMED; HUMERAL AND GLENOID COMPONENTS (EG, TOTAL SHOULDER) (Left) Catheter site: left IS Solution: 0.2% Ropivacaine Rates: 59 Venkata [phone] [place] 04/17 Called and talked to pt, states pain level is: 3 Pt states catheter dressing is intact, denies: redness, fever, draining, edema, pain Does pt c/o SOB, hoarse voice, difficulty swallowing No Denies c/o metallic taste in mouth, ringing in ears, dizziness etc. Pt is able to move: fingers Will call pt again tomorrow. Comments: SOB has gone away after holding pump yesterday. Turned it back on last night. How many pain pills has the patient used in the last 24 hours? tylenol and oxycodone Britt Lopez APRN.DOG LICENSER 04/18/2024 1:43 PM Signed DOS: 04/14/24 Type of surgery: REMOVAL OF PROSTHESIS, INCLUDES DEBRIDEMENT AND SYNOVECTOMY WHEN PERFORMED; HUMERAL AND GLENOID COMPONENTS (EG, TOTAL SHOULDER) (Left) Catheter site: left IS Solution: 0.2% Ropivacaine Rates: 59 Venkata [phone] [place] 04/18/24: Called and talked to pt, states pain level is: 3 The pump reads: 617.3 mL Pt states catheter dressing is intact, denies: redness, fever, draining, edema, pain Does pt c/o SOB, hoarse voice, difficulty swallowing No Denies c/o metallic taste in mouth, ringing in ears, dizziness etc. Pt is able to move: left fingers Will call pt again Saturday. Comments: Ensured pt has APMS phone number if issues arise. Pt to stop and remove nerve block tomorrow. Sharita Antonio RN 04/20/2024 9:49 AM Signed DOS: 04/14/24 Type of surgery: REMOVAL OF PROSTHESIS, INCLUDES DEBRIDEMENT AND SYNOVECTOMY WHEN PERFORMED; HUMERAL AND GLENOID COMPONENTS (EG, TOTAL SHOULDER) (Left) Catheter site: left IS Solution: 0.2% Ropivacaine Rates: 59 Venkata [phone] [place] 04/20/24: Pt removed catheter yesterday without issue. Pain tolerable. Allergies As of Date: 04/15/2024 Noted Allergy Reaction KEFLEX (CEPHALEXIN) 10/18/2004 4 - Hives PENICILLINS 01/05/2004 4 - Hives ELIQUIS (APIXABAN) 04/14/2024 4 - Hives TREE NUTS 04/14/2024 10 - Anaphylaxis Date Reviewed: 04/15/2024 Reviewed by: Austen Tee RN - Fully Assessed Prescriptions as of 04/20/2024 - aspirin, enteric coated (ADULT LOW DOSE ASPIRIN) 81 mg EC tablet Take 1 tablet by mouth two times a day for 14 days. - docusate sodium (COLACE) 100 mg capsule Take 1 capsule by mouth two times a day for 14 days. - doxycycline hyclate (VIBRAMYCIN) 100 mg capsule Take 1 capsule (100 mg) by mouth two times a day for 14 days. - ondansetron (ZOFRAN) 4 mg tablet Take 1 tablet by mouth every 8 hours as needed for nausea/vomiting. - oxyCODONE IR (ROXICODONE) 5 mg immediate release tablet Take 1 tablet by mouth every 6 hours as needed for pain for up to 7 days. - acetaminophen (TYLENOL EXTRA STRENGTH) 500 mg tablet Take 2 tablets by mouth every 8 hours as needed for pain. - L.acidophilus-L.rham nosus (PROBIOTIC) 15 billion cell capsule Take 1 capsule by mo (more content not included)... Normal [facility] CONSULT PROGon 04-15-2024 CONSULT PROG HNO ID: [id number] Author: JENY ARRIAZA APRN.DOG LICENSER Service: Pain Management Author Type: Nurse Practitioner Type: Consult Progress Note Filed: 04/15/2024 13:46 Note Text: APS POST-OPERATIVE PROGRESS NOTE Peripheral Nerve Catheter SERVICE DATE: 04/15/2024 : 1960 SERVICE TIME: 1230 PM SURGERY DATE: 04/14/2024 PRIMARY SERVICE: Orthopedics Subjective CHIEF COMPLAINT: Post-operative pain INTERVAL HPI: [place] Gutierrez is a 63 year old female who is POD #1, S/P Procedure(s) (LRB): REMOVAL OF PROSTHESIS, INCLUDES DEBRIDEMENT AND SYNOVECTOMY WHEN PERFORMED; HUMERAL AND GLENOID COMPONENTS (EG, TOTAL SHOULDER) (Left) with Peripheral Nerve Catheter placed on day of surgery for post-operative pain control infusing 0.2% Ropivacaine at 4/4/60/1. On encounter, patient appears in NAD, reports postoperative pain is well controlled on current regimen. Per primary team - anticipated discharge today. Pre-Operative (Baseline) Pain Score: Not documented History of Chronic Pain: No Current Pain Level: 0/10 at rest 0 with ambulation on a scale of 0-10 Physical Therapy Sessions: had OT session Pain at Surgical Site: No Character: denies pain Duration: n/a Radiation: No Relieved: Yes - PO Pain medications, Rest, Repositioning, and PNC Patient Satisfied with Pain Control: Yes Overnight Events: None Overnight Pain Interventions: no POST-OPERATIVE BLOCK: Block Type: Infraclavicular Nerve Catheter, Left Block Failure: No Action Taken Towards Block Side Effects: N/A Analgesic Regimen: Tylenol 1000 mg every 6 hours Oral Opioids: Oxycodone 5-10 mg PO Q4H prn IVP Pain Regimen: Morphine 2 mg Q3H prn BTP ROS CAN MARKER: Numbness within distribution of block ENT: Negative for hoarseness, negative for dysphagia, negative for tinnitus. CARDIOVASCULAR: Negative for chest pain, negative for leg swelling, negative for palpitations. RESPIRATORY: Negative for cough, negative for wheezing, negative for shortness of breath. H/o asthma , PE GI: Negative for nausea, negative for vomiting, negative for constipation. ALLERGIES Allergen Reactions Keflex [Cephalexin] Hives Penicillins Hives Eliquis [Apixaban] Hives Tree Nuts Anaphylaxis Current Facility-Administere d Medications Medication Dose Route Frequency ropivacaine nerve block 0.2% (2 mg/mL) - 200 mL PERIPHERAL NERVE CATHETER CONTINUOUS acetaminophen 1,000 mg tab(s) (TYLENOL) 1,000 mg ORAL q 6 H oxyCODONE IR 5-10 mg tab(s) (ROXICODONE) 5-10 mg ORAL q 4 H PRN morphine 2 mg injection 2 mg INTRAVENOUS q 3 H PRN ondansetron (PF) 4-8 mg injection (ZOFRAN) 4-8 mg INTRAVENOUS q 6 H PRN aluminum-magnesium hydroxide-simethicon e 200-200-20 mg/5 mL 30 mL 30 mL ORAL q 2 H PRN magnesium hydroxide 400 mg/5 mL 30 mL (MOM) 30 mL ORAL DAILY PRN docusate sodium 100 mg cap(s) (COLACE) 100 mg ORAL BID diphenhydrAMINE 25 mg injection (BENADRYL) 25 mg INTRAVENOUS q 6 H PRN bisacodyl 10 mg suppository (DULCOLAX) 10 mg RECTAL DAILY PRN multivitamin-ferrous fumarate-folic acid 1 tablet (CENTRUM) 1 tablet ORAL DAILY ferrous sulfate 325 mg tab(s) 325 mg ORAL BID w MEALS ascorbic acid (vitamin C) 500 mg tab(s) (VITAMIN C) 500 mg ORAL BID w MEALS aspirin, enteric coated 81 mg tab(s) 81 mg ORAL BID furosemide 20 mg tab(s) (LASIX) 20 mg ORAL DAILY metoprolol succinate ER 50 mg tab(s) (TOPROL XL) 50 mg ORAL DAILY pantoprazole DR 20 mg tab(s) (PROTONIX) 20 mg ORAL BID AC (0600/1600) ondansetron orally disintegrating 4 mg tab(s) (ZOFRAN ODT) 4 mg ORAL q 8 H PRN levothyroxine (SYNTHROID) tab(s) 137 mcg 137 mcg ORAL DAILY potassium chloride ER 20 mEq tab(s) (KLOR-CON) 20 mEq ORAL BID mometasone-formotero l 100-5 mcg/actuation 2 Puff inhaler (DULERA) 2 Puff INHALATION BID lactobacillus rhamnosus 10 billion cell (CULTURELLE) capsule 1 capsule ORAL DAILY montelukast 10 mg tab(s) (SINGULAIR) 10 mg ORAL DAILY ROPivacaine (PF) 0.2 % in NaCl 0.9% 1,000 mL PERIPHERAL NERVE CATHETER ONE TIME Objective PHYSICAL EXAM: Patient Vitals for the past 4 hrs: BP Temp Temp src Pulse Resp SpO2 04/15/24 1113 95/53 36.8 ?C (98.2 ?F) Oral 92 16 94 % AFFECT: Alert, Awake, and Oriented GENERAL APPEARANCE: Appears comfortable and Appears in good spirits IV/CATHETER SITE: Catheter site with no signs of local infection, no erythema, and no discharge noted no swelling MOTOR: Left Upper Extremity: Hand grasp RESPIRATORY: Breathing appears normal DATA: Diagnostic tests reviewed for today's visit: Most recent labs LAB RESULTS: Hemoglobin 10.1 04/14/2024 Hematocrit 31.6 04/14/2024 Platelet Count 276 04/14/2024 Medication and Non-Pharmacologic VTE Prophylaxis/Anticoag ulants Anticoagulant AND Antiplatelet Medications (From admission, onward) Start Dose Route Frequency Last Action Ordered Stop 04/15/24 0900 aspirin, enteric coated 81 mg tab(s) (Surgical Risk Categories) 81 mg ORAL 2 TIMES DAILY Given, 04/15 0825 04/14/24 1659 -- 04/14/24 1700 pneumatic c (more content not included)... Normal [facility] NURSING PROGon 04-15-2024 NURSING PROG HNO ID: [id number] Author: LEONARDA HIGHTOWER, KAILA Service: ? Author Type: Registered Nurse Type: Nursing Progress Note Filed: 04/15/2024 01:48 Note Text: Pt with BP 92/53 hr 83. We are taking her bp in the right wrist since her left arm is the operative arm, and since she has tenuous iv access in the right ac. Pt is asymptomatic. AOx 3. No dizzy, dyspnea, palpitations or angina. Pt states that she feels good . Labs sent earlier in the shift. Dr Ramos notified of the above. Plan of care to continue. Normal [facility] THERAPY NTon 04-15-2024 THERAPY NT HNO ID: [id number] Author: CHARLETTE MALLOY, OTR/L Service: Occupational Therapy Author Type: Occupational Therapist Type: Therapy (PT/OT/Speech/Resp) Filed: 04/15/2024 13:54 Note Text: Occupational Therapy Treatment Summary SERVICE DATE: 04/15/2024 SERVICE TIME: 1321 to 1345 ROOM: [place] [address] OT 6 Clicks Score: 22 Total Joint Replacement Discharge Readiness: Cleared from Occupational Therapy DISCHARGE RECOMMENDATIONS Home Anticipated Discharge Needs: Physical Assist at Home Physical Assist at Home for: Cleaning, Laundry, Self Care, Shopping, Transportation ASSESSMENT Good reverse demo of upper body dressing techniques with assist of spouse. All OT needs met. PRECAUTIONS Weight Bearing Restrictions L UE NWB, sling at all times except for hygiene, ok for elbow, wrist, hand ROM, no shoulder ROM Left Upper Extremity Weight Bearing Status: NWB CURRENT HOSPITAL COURSE s/p L total shoulder conversion to rTSA on 04/14/24 Relevant Past Medical History: L TSA, DM, HTN, R TKA, HOME LIVING Patient Lives With: Spouse Assistance Available: 24-Hour PRIOR FUNCTIONAL LEVEL Within Functional Limits SUBJECTIVE COGNITION Cog 6 Start of Session Total Points (Max Score = 24): 24 (04/15/24) Cog 6 End of Session Total Points (Max Score = 24): 24 (04/15/24) 4AT Score: 0 (04/15/24) Delirium Positive/Negative: Negative (04/15/24) THERAPY DIAGNOSIS Decreased activities of daily living (ADL) TREATMENT INTERVENTIONS Self Mcc Management (08666) Timed Code Treatment (minutes): 24 Skilled Treatment Time (minutes): 24 TRAINING AND EDUCATION PROVIDED Bed Mobility, Positioning, Precautions/Restrict ions, Pain Management, Patient Exercise/Therapy Program Support Needs, Sling/Brace Management, Upper Extremity Bathing, Upper Extremity Dressing THERAPEUTIC SKILLS USED Activity Dosing, Assessment of Tolerance Including Vitals Response to Activity, Cues for Sequencing/Proper Technique for Activity, Cuing Tactile, Cuing Verbal, Cuing Visual, Muscle Activation Facilitation, Movement Facilitation, Task Analysis Learning, Teach-Back for Education, Therapeutic Use of Self FUNCTIONAL STATUS Activities of Daily Living Assist Level Additional Information Feeding Set Up Grooming Set Up Bathing Upper Body Moderate Assistance Bathing Lower Body Set Up Dressing Upper Body Moderate Assistance Dressing Lower Body Set Up Toileting Stand By Assistance Mobility Assist Level Additional Information Bed Mobility Supine To Sit: Minimal Assistance Sit To Supine: Stand By Assistance Sit to Stand Stand By Assistance Stand to Sit Stand By Assistance Bed to Chair Toilet/Commode Shower Functional Mobility Stand By Assistance Functional Mobility Device: None GOALS Patient will demonstrate progress with self-care, cognitive and/or coping needs identified to allow safe discharge to home with available support and/or physical assistance. Progress Toward Goals: Progressing as expected Rehab Potential: Excellent PLAN OT Frequency: Once Daily Treatment Interventions: Education, Self Care/Home Management Plan for Next Visit: Dressing Training SIGNATURE: PAYAM Cooley PATIENT NAME: [place] Gutierrez DATE: April 15, 2024 TIME: 1:54 PM Normal [facility] THERAPY NT HNO ID: [id number] Author: CHARLETTE MALLOY OTR/L Service: Occupational Therapy Author Type: Occupational Therapist Type: Therapy (PT/OT/Speech/Resp) Filed: 04/15/2024 10:11 Note Text: Occupational Therapy Evaluation Summary SERVICE DATE: 04/15/2024 SERVICE TIME: 923 to 1002 ROOM: [address] 6 Clicks Score: 22 Total Joint Replacement Discharge Readiness: Pending Occupational Therapy Clearance DISCHARGE RECOMMENDATIONS Home Anticipated Discharge Needs: Physical Assist at Home Physical Assist at Home for: Cleaning, Laundry, Self Care, Shopping, Transportation ASSESSMENT Response to Therapy Interventions: Good Participation in Activities, On-Track to Achieve Discharge Goals 1 additional OT session after lines switched to home going for upper body dressing education. PRECAUTIONS Weight Bearing Restrictions L UE NWB, sling at all times except for hygiene, ok for elbow, wrist, hand ROM, no shoulder ROM Left Upper Extremity Weight Bearing Status: NWB Exercise: AAROM elbow, wrist, hand 10 reps, 1 set CURRENT HOSPITAL COURSE s/p L total shoulder conversion to rTSA on 04/14/24 Relevant Past Medical History: L TSA, DM, HTN, R TKA, HOME LIVING Patient Lives With: Spouse Assistance Available: 24-Hour PRIOR FUNCTIONAL LEVEL Within Functional Limits SUBJECTIVE agreeable to OT COGNITION Cog 6 Start of Session Total Points (Max Score = 24): 24 (04/15/24) Cog 6 End of Session Total Points (Max Score = 24): 24 (04/15/24) 4AT Score: 0 (04/15/24) Delirium Positive/Negative: Negative (04/15/24) THERAPY DIAGNOSIS Decreased activities of daily living (ADL) TREATMENT INTERVENTIONS Evaluation, Self Mcc Management (25953) Timed Code Treatment (minutes): 24 Skilled Treatment Time (minutes): 39 TRAINING AND EDUCATION PROVIDED Bed Mobility, Positioning, Precautions/Restrict ions, Pain Management, Patient Exercise/Therapy Program Support Needs, Sling/Brace Management, Upper Extremity Bathing, Upper Extremity Dressing THERAPEUTIC SKILLS USED Activity Dosing, Assessment of Tolerance Including Vitals Response to Activity, Cues for Sequencing/Proper Technique for Activity, Cuing Tactile, Cuing Verbal, Cuing Visual, Muscle Activation Facilitation, Movement Facilitation, Task Analysis Learning, Teach-Back for Education, Therapeutic Use of Self FUNCTIONAL STATUS Activities of Daily Living Assist Level Additional Information Feeding Set Up Grooming Set Up Bathing Upper Body Moderate Assistance Bathing Lower Body Set Up Dressing Upper Body Moderate Assistance Dressing Lower Body Set Up Toileting Stand By Assistance Mobility Assist Level Additional Information Bed Mobility Supine To Sit: Minimal Assistance Sit To Supine: Stand By Assistance Sit to Stand Stand By Assistance Stand to Sit Stand By Assistance Bed to Chair Toilet/Commode Shower Functional Mobility Stand By Assistance Functional Mobility Device: None GOALS Patient will demonstrate progress with self-care, cognitive and/or coping needs identified to allow safe discharge to home with available support and/or physical assistance. Progress Toward Goals: Progressing as expected Rehab Potential: Excellent PLAN OT Frequency: One Additional Visit Treatment Interventions: Education, Self Care/Home Management, Functional Mobility Training, Balance Training Plan for Next Visit: Dressing Training SIGNATURE: DORIE Cooley/Brendon PATIENT NAME: [place] Gutierrez DATE: April 15, 2024 TIME: 10:11 AM Normal [facility] ANES POSTPROC EVALon 024 ANES POSTPROC EVAL HNO ID: [id number] Author: POLY PRIETO MD Service: ? 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 Post Anesthesia Patient Status Patient Evaluation: PACU. Neurological Status: aware and responsive. Pulmonary Status: breathing comfortably on room air Airway Control: returned to baseline unsupported. Cardiovascular Status: stable. Pain Management: clinically adequate Postoperative Hydration: acceptable. Intraoperative Events: no significant anesthesia events Post Operative Nausea/Vomiting Status: no significant post operative nausea or vomiting Recommendation: continue current plan of care. Anesthesia Observations No Documentation SIGNATURE: POLY YUAN MD PATIENT NAME: [place] Gutierrez DATE: April 14, 2024 TIME: 11:56 AM CSN: [id number] Normal [facility] ANES PRE-OPon 04-14-2024 ANES PRE-OP HNO ID: [id number] Author: POLY PRIETO MD Service: ? Author Type: Anesthesiologist Type: Anesthesia Preprocedure Evaluation Filed: 04/14/2024 06:52 Note Text: ANESTHESIOLOGY DAY OF SURGERY NOTE : 1960 Procedure Information Date/Time: 04/14/24 0745 Procedure: REMOVAL OF PROSTHESIS, INCLUDES DEBRIDEMENT AND SYNOVECTOMY WHEN PERFORMED; HUMERAL AND GLENOID COMPONENTS (EG, TOTAL SHOULDER) (Left: Shoulder) Location: [address] [facility] Surgeons: John Holly MD Estimated body mass index is 42.31 kg/m? as calculated from the following: Height as of 03/30/24: 142.2 cm (4' 8 ). Weight as of 03/30/24: 85.6 kg (188 lb 11.2 oz). Most recent hematocrit and potassium results: Hematocrit 38.7 03/30/2024 Potassium 4.1 03/30/2024 CBC with diff: WBC 11.32 03/30/2024 RBC 4.08 03/30/2024 Hemoglobin 12.0 03/30/2024 Hematocrit 38.7 03/30/2024 MCV 94.9 03/30/2024 MCH 29.4 03/30/2024 MCHC 31.0 03/30/2024 RDW-CV 15.9 03/30/2024 Platelet Count 352 03/30/2024 MPV 9.7 03/30/2024 Neut% 72.4 03/30/2024 Lymph% 17.0 03/30/2024 Yates% 6.2 03/30/2024 Eosin% 0.6 03/30/2024 Baso% 0.4 03/30/2024 Abs Neut (ANC) 8.19 03/30/2024 Abs Yates 0.70 03/30/2024 Abs Eosin 0.07 03/30/2024 Abs Baso 0.04 03/30/2024 Relevant Problems ANESTHESIA (+) PONV (postoperative nausea and vomiting) CARDIO (+) Inappropriate sinus tachycardia (HCC) ENDO (+) 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 (+) Unspecified hypothyroidism GI (+) GERD (gastroesophageal reflux disease) NEURO-PSYCH (+) History of pulmonary embolism PULMONARY (+) Asthma without status asthmaticus Other (+) Rheumatoid arthritis of multiple sites without rheumatoid factor (HCC) ACTIVE PROBLEM LIST Alopecia Areata Unspecified Hypothyroidism Other Atopic Dermatitis and Related Conditions Rheumatoid Arthritis(714.0) Hyperlipidemia 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 Bilateral Wrist Pain Bilateral Hand Pain Family History of Gout Secondary Osteoarthritis of Multiple Sites Family History of Rheumatoid Arthritis Aileen Positive Rheumatoid Arthritis of Multiple Sites Without Rheumatoid Factor (Hcc) Postmenopausal Osteoporosis of Multiple Sites Long-Term Use of High-Risk Medication Cyclic Citrullinated Peptide (Ccp) Antibody Positive Rheumatoid Factor Positive Encounter for Long-Term (Current) Use of Nsaids Vitamin D Deficiency Personal History of Other Medical Treatment Bilateral Chronic Knee Pain Nausea 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 Tracheostomy tube not present Mallampati: II. TM distance: >3 FB. Neck ROM: full ROM without neurological symptoms. Mouth opening: adequate. Short neck: no. Thick neck: no DENTAL Dental findings: teeth intact. Additional exam findings: no II - ANESTHESIA PLAN ASA Score: 3 Anesthetic Plan: general Airway type: ETT NPO Status: adequate Beta Greg Monitoring Plan Monitoring plan: Standard ASA. Post Procedure Analgesic Plan Postoperative analgesic plan: parenteral or oral opioids and multimodal analgesia. Informed Consent Anesthetic risks, benefits, alternatives, personnel and consent discussed: yes. Patient / Responsible Republican agrees to proceed: yes Patient / Surrogate agrees to blood products: yes DNR status not reviewed with patient and/or family prior to surgery. Significant changes in the patient condition since the History and Physical, not otherwise documented in primary service progress note: no. Potential Anesthesia issues that may suggest increased risk of complications or contraindication to planned procedure: none. Vitals Value Taken Time BP 120/60 04/14/24613 Pulse 93 04/14/24613 Resp 16 04/14/24613 Temp 36.2 ?C (97.2 ?F) 04/14/24613 SpO2 95 % 04/14/24613 Facility-Administere d Medications as of 04/14/2024 Medication Dose Route Frequency lidocaine (PF) 10 mg/mL (1 %) 1-2 mg injection (XYLOCAINE) 0.1-0.2 mL INTRADERMAL PRN Or lidocaine 1% 0.25 mL subcutaneous j-tip syringe (XYLOCAINE) 0.25 mL SUBCUTANEOUS PRN NaCl 0.9% iv flush bag 20 mL INTRAVENOUS PRN vancomycin 1.5 g in NaCl 0.9% 250 mL (VANCOCIN) 1.5 g INTRAVENOUS Pre-Op Once ciprofloxacin iv piggyback 400 mg in D5W 200 mL (CIPRO) 400 mg INTRAVENOUS Pre-Op Once Outpatient Medications as of 04/14/2024 Medication Sig furosemide (LASIX) 20 mg tab (more content not included)... Normal [facility] BRIEF OP NOTon 04-14-2024 BRIEF OP NOT HNO ID: [id number] Author: KEVEN HERMOSILLO MD Service: Orthopaedic Surgery Author Type: Physician Type: Brief Op Note Filed: 04/14/2024 11:31 Note Text: BRIEF OP NOTE LOG ID: [id number] Surgery/Procedure Date: 04/14/2024 Incision/Procedure Start Time: 8:54 AM Incision Close/Procedure End Time: 11:06 AM Surgeon(s)/Procedura list(s) and Theology Professor(s): Surgeons and Role: * John Holly MD - Primary * Keven Hermosillo MD - Fellow Procedure(s): Procedure(s) (LRB): REMOVAL OF PROSTHESIS, INCLUDES DEBRIDEMENT AND SYNOVECTOMY WHEN PERFORMED; HUMERAL AND GLENOID COMPONENTS (EG, TOTAL SHOULDER) (Left) Anesthesia: Choice - Anesthesia Consult Estimated Blood Loss: 200 mls Specimens: ID Type Source Tests Collected by Time Destination 1 : left shoulder synovium fluid Sterile Fluid/Body Fluid Shoulder, Left ANAEROBE CULTURE, BODY FLUID CULTURE AND GRAM STAIN John Holly MD 04/14/2024 9:05 AM 2 : anterior capsule left shoulder Tissue Bone and Soft Tissue TISSUE CULT + STAIN, ANAEROBE CULTURE John Holly MD 04/14/2024 9:23 AM 3 : left shoulder humerus fibrus tissue Tissue Soft Tissue (Not otherwise specified) TISSUE CULT + STAIN, ANAEROBE CULTURE John Holly MD 04/14/2024 9:33 AM 4 : left shoulder glenoid fibrus tissue Tissue Soft Tissue (Not otherwise specified) TISSUE CULT + STAIN, ANAEROBE CULTURE John Holly MD 04/14/2024 9:35 AM 5 : posterior capsule left shoulder Tissue Bone and Soft Tissue TISSUE CULT + STAIN, ANAEROBE CULTURE John Holly MD 04/14/2024 9:37 AM 6 : superior capsule left shoulder Tissue Bone and Soft Tissue TISSUE CULT + STAIN, ANAEROBE CULTURE John Holly MD 04/14/2024 9:37 AM A : left shoulder humerus fibrus tissue Tissue Soft Tissue (Not otherwise specified) SURGICAL PATHOLOGY John Holly MD 04/14/2024 9:32 AM B : left shoulder glenoid fibrus tissue Tissue Soft Tissue (Not otherwise specified) SURGICAL PATHOLOGY John Holly MD 04/14/2024 9:35 AM C : left shoulder explant Implant/Device/Forei gn Body Hardware/Device/Fore ign Body SURGICAL PATHOLOGY John Holly MD 04/14/2024 10:53 AM Complications: None Pre-Op/Pre-Procedure Diagnosis: aseptic loosening left reverse total shoulder Post-Op/Post-Procedu re Diagnosis: Same Post-op Plan: PACU Labs: none PACU Imaging: Left shoulder XR - Antibiotics: periop cipro/zosyn followed by 2 weeks PO doxy 100mg BID - Pain Management: pain block, oxy, tylenol - DVT prophylaxis: ASA 81mg BID x 2 weeks - Weight Bearing/Activity: NWB operative extremity - Precautions: sling - Diet: regular - Encourage IS - PT/OT - Anticipate D/C: home tomorrow - Dispo: home Plan of care discussed with: Provider, RN, Patient. Patient was accompanied to the next level of care by a licensed practitioner from the surgical team pending completion of this brief op note (or operative note) SIGNATURE: Keven Hermosillo MD PATIENT NAME: Carolina Gutierrez DATE: April 14, 2024 TIME: 11:28 AM PAGER/CONTACT #: [phone] Normal [facility] Bacteria Fld Culton 04-14-20 24 Bacteria identified Cx Nom (Body fld) CULTURE, BODY FLD: No growth GRAM STAIN: No organisms seen Rare Polymorphonuclear leukocytes Gram stain from primary specimen Normal [facility] Comment on above: Performed By: #### V ALLMG #### [facility] CLIA [id number] [address] [place] [address] [place] Bacteria Spec Anaerobe Culto n 04-14-2024 Bacteria identified Anaer cx Nom (Unsp spec) CULTURE, ANAEROBE: Negative for anaerobes. No Cutibacterium acnes isolated. Normal [facility] Comment on above: Performed By: #### 4 3408-4, 635-3 ####[facility] [id number] [place] [address] [place] Performed By: #### V ALLMG #### [facility] CLIA [id number] [address] [place] [address] [place] Bacteria identified Anaer cx Nom (Unsp spec) CULTURE, ANAEROBE: Negative for anaerobes. No Cutibacterium acnes isolated. Normal [facility] Comment on above: Performed By: #### V ALLMG #### [facility] CLIA [id number] [address] [place] [address] [place] Bacteria identified Anaer cx Nom (Unsp spec) CULTURE, ANAEROBE: Negative for anaerobes. No Cutibacterium acnes isolated. Normal [facility] Comment on above: Performed By: #### V ALLMG #### [facility] CLIA [id number] [address] [place] [address] [place] Bacteria identified Anaer cx Nom (Unsp spec) CULTURE, ANAEROBE: Negative for anaerobes. No Cutibacterium acnes isolated. Normal [facility] Comment on above: Performed By: #### 4 3408-4, 635-3 ####[facility] [id number] [place] [address] [place] Bacteria identified Anaer cx Nom (Unsp spec) CULTURE, ANAEROBE: Negative for anaerobes. No Cutibacterium acnes isolated. Normal [facility] Comment on above: Performed By: #### V ALLMG #### [facility] CLIA [id number] [address] [place] [address] [place] Bacteria Tiss Culton 10-15-2 024 Bacteria identified Cx Nom (Tiss) CULTURE, TISSUE: No growth GRAM STAIN: No organisms seen Rare Polymorphonuclear leukocytes Normal [facility] Comment on above: Performed By: #### 4 3408-4, 635-3 ####[facility] [id number] [place] [address] [place] Performed By: #### V ALLMG #### [facility] CLIA [id number] [address] [place] [address] [place] Bacteria identified Cx Nom (Tiss) CULTURE, TISSUE: No growth GRAM STAIN: No organisms seen Rare Polymorphonuclear leukocytes Normal [facility] Comment on above: Performed By: #### V ALLMG #### [facility] CLIA [id number] [address] [place] [address] [place] Bacteria identified Cx Nom (Tiss) CULTURE, TISSUE: No growth GRAM STAIN: No organisms seen Few Polymorphonuclear leukocytes Normal [facility] Comment on above: Performed By: #### V ALLMG #### [facility] CLIA [id number] [address] [place] [address] [place] Bacteria identified Cx Nom (Tiss) CULTURE, TISSUE: No growth GRAM STAIN: No organisms seen No Polymorphonuclear Leukocytes Normal [facility] Comment on above: Performed By: #### 4 3408-4, 635-3 ####[facility] [id number] [place] [address] [place] Basic metabolic 2000 panelon 04-14-2023 Anion gap [Moles/Vol] 14 mmol/L Normal 8-15 [facility] Comment on above: Order Comment: Speci men Type: VENOUS BLOOD SPECIMEN Ordering Facility: [facility] Address: [address] [place] [address] Performed By: #### V ALLMG #### [facility] CLIA [id number] [address] [place] [address] [place] Calcium [Mass/Vol] 8.6 mg/dL Normal 8.5-10.2 [facility] Comment on above: Order Comment: Speci men Type: VENOUS BLOOD SPECIMEN Ordering Facility: [facility] Address: [address] [place] [address] Performed By: #### V ALLMG #### [facility] CLIA [id number] [address] [place] [address] [place] Chloride [Moles/Vol] 104 mmol/L Normal 98-107 [facility] Comment on above: Order Comment: Speci men Type: VENOUS BLOOD SPECIMEN Ordering Facility: [facility] Address: [address] [place] [address] Performed By: #### V ALLMG #### [facility] CLIA [id number] [address] [place] [address] [place] CO2 [Moles/Vol] 21 mmol/L Low 22-30 [facility] Comment on above: Order Comment: Speci men Type: VENOUS BLOOD SPECIMEN Ordering Facility: [facility] Address: [address] [place] [address] Performed By: #### V ALLMG #### [facility] CLIA [id number] [address] [place] [address] [place] Creatinine [Mass/Vol] 0.52 mg/dL Low 0.58-0.96 [facility] Comment on above: Order Comment: Speci men Type: VENOUS BLOOD SPECIMEN Ordering Facility: [facility] Address: [address] [place] [address] Performed By: #### V ALLMG #### [facility] CLIA [id number] [address] [place] [address] [place] Creatinine and Glomerular filtration rate.predicted panel (S/P/Bld) 104 mL/min/1.73m??? Normal >=60 [facility] Comment on above: Order Comment: Speci men Type: VENOUS BLOOD SPECIMEN Ordering Facility: [facility] Address: [address] [place] [address] Result Comment: Katlyn mated Glomerular Filtration Rate (eGFR) is calculated using the 2020 CKD-EPI creatinine equation. This equation utilizes serum creatinine, sex, and age as parameters. The creatinine assay has traceable calibration to isotope dilution-mass spectrometry. Refer to KDIGO guidelines for clinical interpretation. In patients with unstable renal function, e.g. those with acute kidney injury, the eGFR may not accurately reflect actual GFR. Performed By: #### V ALLMG #### [facility] CLIA [id number] [address] [place] [address] [place] Glucose [Mass/Vol] 224 mg/dL High 74-99 [facility] Comment on above: Order Comment: Speci men Type: VENOUS BLOOD SPECIMEN Ordering Facility: [facility] Address: [address] [place] [address] Result Comment: The [place] Diabetes [employer] (ADA) provides guidance for cutoff [...] Standards of Medical Care in Diabetes 2016, [place] [employer]. Diabetes Care. 2016.39(Suppl 1). Performed By: #### V ALLMG #### [facility] CLIA [id number] [address] [place] [address] [place] Potassium [Moles/Vol] 4.1 mmol/L Normal 3.7-5.1 [facility] Comment on above: Order Comment: Lorene montano Type: VENOUS BLOOD SPECIMEN Ordering Facility: [facility] Address: [address] [place] [address] Performed By: #### V ALLMG #### [facility] CLIA [id number] [address] [place] [address] [place] Sodium [Moles/Vol] 139 mmol/L Normal 136-144 [facility] Comment on above: Order Comment: Lorene men Type: VENOUS BLOOD SPECIMEN Ordering Facility: [facility] Address: [address] [place] [address] Performed By: #### V ALLMG #### [facility] CLIA [id number] [address] [place] [address] [place] Urea nitrogen [Mass/Vol] 9 mg/dL Normal 7-21 [facility] Comment on above: Order Comment: Speci men Type: VENOUS BLOOD SPECIMEN Ordering Facility: [facility] Address: [address] [place] [address] Performed By: #### V ALLMG #### [facility] CLIA [id number] [address] [place] [address] [place] CBC panel Auto (Bld)on 04-14 Erythrocyte distribution width (RBC) [Ratio] 15.2 % High 11.5-15.0 [facility] Comment on above: Order Comment: Speci men Type: BLOOD SPECIMEN Ordering Facility: [facility] Address: [address] [place] [address] Performed By: #### 4 537-7 #### [facility] CLIA [id number] [address] [place] [address] [place] Hematocrit (Bld) [Volume fraction] 31.6 % Low 36.0-46.0 [facility] Comment on above: Order Comment: Speci men Type: BLOOD SPECIMEN Ordering Facility: [facility] Address: [address] [place] [address] Performed By: #### 4 537-7 #### [facility] CLIA [id number] [address] [place] [address] [place] Hemoglobin (Bld) [Mass/Vol] 10.1 g/dL Low 11.5-15.5 [facility] Comment on above: Order Comment: Speci men Type: BLOOD SPECIMEN Ordering Facility: [facility] Address: [address] [place] [address] Performed By: #### 4 537-7 #### [facility] CLIA [id number] [address] [place] [address] [place] MCH (RBC) [Entitic mass] 29.6 pg Normal 26.0-34.0 [facility] Comment on above: Order Comment: Speci men Type: BLOOD SPECIMEN Ordering Facility: [facility] Address: [address] [place] [address] Performed By: #### 4 537-7 #### [facility] CLIA [id number] [address] [place] [address] [place] MCHC (RBC) [Mass/Vol] 32.0 g/dL Normal 30.5-36.0 [facility] Comment on above: Order Comment: Speci men Type: BLOOD SPECIMEN Ordering Facility: [facility] Address: [address] [place] [address] Performed By: #### 4 537-7 #### [facility] CLIA [id number] [address] [place] [address] [place] MCV (RBC) [Entitic vol] 92.7 fL Normal 80.0-100.0 [facility] Comment on above: Order Comment: Speci men Type: BLOOD SPECIMEN Ordering Facility: [facility] Address: [address] [place] [address] Performed By: #### 4 537-7 #### [facility] CLIA [id number] [address] [place] [address] [place] Nucleated RBC (Bld) [#/Vol] 10*3/uL Normal <0.01 [facility] Comment on above: Order Comment: Speci men Type: BLOOD SPECIMEN Ordering Facility: [facility] Address: [address] [place] [address] Performed By: #### 4 537-7 #### [facility] CLIA [id number] [address] [place] [address] [place] Platelet mean volume (Bld) [Entitic vol] 9.3 fL Normal 9.0-12.7 [facility] Comment on above: Order Comment: Speci men Type: BLOOD SPECIMEN Ordering Facility: [facility] Address: [address] [place] [address] Performed By: #### 4 537-7 #### [facility] CLIA [id number] [address] [place] [address] [place] Platelets (Bld) [#/Vol] 276 10*3/uL Normal 150-400 [facility] Comment on above: Order Comment: Speci men Type: BLOOD SPECIMEN Ordering Facility: [facility] Address: [address] [place] [address] Performed By: #### 4 537-7 #### [facility] CLIA [id number] [address] [place] [address] [place] RBC (Bld) [#/Vol] 3.41 10*6/uL Low 3.90-5.20 [facility] Comment on above: Order Comment: Speci men Type: BLOOD SPECIMEN Ordering Facility: [facility] Address: [address] [place] [address] Performed By: #### 4 537-7 #### [facility] CLIA [id number] [address] [place] [address] [place] WBC (Bld) [#/Vol] 11.81 10*3/uL High 3.70-11.00 [facility] Comment on above: Order Comment: Speci men Type: BLOOD SPECIMEN Ordering Facility: [facility] Address: [address] [place] [address] Performed By: #### 4 537-7 #### [facility] CLIA [id number] [address] [place] [address] [place] CONFIRM BLOOD TYPEon 024 ABO A Normal [facility] Comment on above: Order Comment: Speci men Type: BLOOD SPECIMENOrdering Facility: [facility] Address: [address] [place] [address] Performed By: #### C ONABO ####[facility] [id number] [place] [address] [place] Rh Nom (Bld) Positive Normal [facility] Comment on above: Order Comment: Speci men Type: BLOOD SPECIMENOrdering Facility: [facility] Address: [address] [place] [address] Performed By: #### C ONABO ####[facility] [id number] [address] [place] ECG COMPLETEon 04-14-2024 ECG COMPLETE Ventricular Rate : 84 BPM Atrial Rate : 84 BPM P-R Interval : 156 ms QRS Duration : 92 ms Q-T Interval : 404 ms QTC Calculation(Bazett) : 477 ms Calculated P Clinton : 51 degrees Calculated R Clinton : -4 degrees Calculated T Clinton : 157 degrees NORMAL SINUS RHYTHM ST & MARKED ANTEROLATERAL T WAVE ABNORMALITY PROLONGED QT INTERVAL OR TU FUSION ABNORMAL ECG Confirmed by SAMANTHA PEREIRA M.D. ([id number]) on 05/15/2024 7:48:50 AM NAME : CAROLINA GUTIERREZ PID : [id number] : 1960 Gender : Female Race : ORD : [id number] Procedure Date : Apr 14 2024 12:27:38 Edit Date : May 15 2024 07:49:07 Diagnosis: NORMAL SINUS RHYTHM ST & MARKED ANTEROLATERAL T WAVE ABNORMALITY PROLONGED QT INTERVAL OR TU FUSION ABNORMAL ECG Confirmed by SAMANTHA PEREIRA M.D. ([id number]) on 05/15/2024 7:48:50 AM Test Reason : Post-OP Location : 314 : J14 H20-13 Overread By : SAMANTHA PEREIRA M.D. Edited By : SAMANTHA PEREIRA M.D. Referred By : , Acquired by : KELLIE RODRIGUEZ [facility] HIGH SENSITIVITY TROPONIN To n 04-14-2024 Troponin T.cardiac High sensitivity method [Mass/Vol] 11 ng/L Normal <12 [facility] Comment on above: Order Comment: Speci men Type: VENOUS BLOOD SPECIMEN Ordering Facility: [facility] Address: [address] [place] [address] Performed By: #### V ALLMG #### [facility] CLIA [id number] [address] [place], [place] [address] [id number] [place] NURSING PROGon 04-14-2024 NURSING PROG HNO ID: [id number] Author: ROSANA BAIN RN Service: Nursing Author Type: Registered Nurse Type: Nursing Progress Note Filed: 04/14/2024 16:59 Note Text: Admission/Transfer Note PATIENT NAME: Carolina Gutierrez Patient Location: [place] [address]/M081-06 Room: [place] [address] Patient admitted from PACU via bed in stable condition. Actions taken: Patient oriented to room, call light function, prescribed activities, Patient rights, and Quiet at night. This note was completed by: Rosana Lama [facility] OPERATIVE NOon 04-14-2024 OPERATIVE NO HNO ID: [id number] Author: JOHN HOLLY MD Service: Orthopaedic Surgery Author Type: Physician Type: Operative Report Filed: 04/14/2024 13:48 Note Text: OPERATIVE/PROCEDURE REPORT [place] [address] Patient Name: Carolina Gutierrez : 1960 Surgery/Procedure Date: 04/14/2024 Incision/Procedure Start Time: 8:54 AM Incision Close/Procedure End Time: 11:06 AM SURGEON(S)/PROCEDURA LIST(S) AND TRACK HELPER(S): John Holly MD [facility]MS[facility] (Primary Surgeon) Keven Hermosillo MD Sean [place], [place] No qualified resident available PRE-OP/PRE-PROCEDURE DIAGNOSIS: * Failed Left reverse shoulder arthroplasty POST-OP/POST-PROCEDU RE DIAGNOSIS: * Failed Left reverse shoulder arthroplasty SURGERY/PROCEDURE(S) : * Explant of failed Left shoulder arthroplasty * Extensive Irrigation and debridement of Left shoulder * Insertion of antibiotic impregnated spacer * 22-modifier SURGICAL FINDING(S): There was severe scar in the previous deltopectoral interval. Joint was aspirated which showed 5 cc of sero sang fluid that was sent for culture. The humeral component was not loose and was removed with minimal bone loss and we developed greater tuberosity fracture that was repaired with two Nice knot heavy PDS sutures . The fibrous tissue underneath was sent for culture. The cement around the humeral component was removed and humeral canal was irrigated thoroughly. The glenoid component was floating in the shoulder and it was removed. The fibrous tissue behind the glenoid component was sent for cultures. Two more cultures from anterior and posterior capsule was sent for culture as well. The rotator cuff showed evidence of tear in subscapularis and supraspinatus and most of the infra tendons. Joint was irrigated with 5 liter of normal saline. Antibiotic spacer was prepared and inserted in the humerus. SURGICAL IMPLANT(S): antibiotic spacer was molded using EzLike spacer mold and 1 gram of tobramycin and 2 gram of vancomycin was mixed in each bag of cement and total of 2 bags were used CASE COMPLEXITY: 22-modifier due to the increased complexity of the procedure resulting in increased intensity, time, and technical difficulty due to high BMI (42), extent of scar within the operative field and revision nature of the procedure. OPERATIVE INDICATIONS: Carolina Gutierrez is a 63 year old year old female with previous history of failed Left shoulder arthroplasty who failed extended course of non-operative treatment. Discussed management including continuing non-operative treatment versus revision shoulder arthroplasty. Preoperative work-up including imaging, aspiration, inflammatory markers did not indicated periprosthetic joint injection. Because of severe bone loss and speed of failure and need for custom implant, decided to go with 2 stage revision and she is undergoing the first stage today. Discussed risks AND benefit of each procedure including but not limited to bleeding, persistent infection, DVT, PE, pain, stiffness, dislocation, neurovascular injury, anesthesia, rotator cuff failure etc. she expressed understanding and decided to proceed with revision shoulder arthroplasty. Preoperative optimization including pain control, resuscitation and cardiac clearance was obtained and she was deemed acceptable risk for cardiac event. We will proceed with surgery as planned. Consent was obtained. SURGERY/PROCEDURE DETAILS: The patient was identified and brought into the Operating Room by the anesthesia and nursing team. General Anesthesia was successfully performed. Intravenous antibiotic prophylaxis dosing was confirmed. The patient was then positioned in a beach chair position and all pressure points were checked and padded. The operative limb was then examined and range of motion and restrictions noted. The operative extremity was then prepped and draped in the usual sterile fashion. A surgical time-out was performed immediately preceding the incision with all personnel in the operating room; the patient identity was again confirmed, the surgical site and extremity were identified and confirmed, X-rays were reviewed, and availability of the appropriate surgical equipment was established. A standard 10-15 cm deltopectoral incision was made along the prior deltopectoral incision of the Left shoulder. The incision was carried sharply down to the level of the deep fascia. There was severe scar in the prior deltopectoral interval. We worked diligently through the scar and developed anatomical planes underneath the deltoid and subacromial space, identifying the conjoint tendon and developing the plane between the conjoint and pectoralis major and then bluntly developing the plane underneath conjoint tendon to identify axillary nerve which was protected throughout the case. We aspirated the joint that resulted in 5 cc of serosang fluid that (more content not included)... Normal [facility] SURGICAL PATHOLOGYon 024 CASE REPORT Normal [facility] Comment on above: Order Comment: Speci men Type: TISSUE SPECIMEN Ordering Facility: [facility] Address: [address] [place] [address] Result Comment: Surg ical Pathology Report Case: [id number] Authorizing Provider: John Holly MD Collected: 04/14/2024 09:32 AM Ordering Location: Admitting Received: 04/14/2024 09:42 AM Pathologist: Rabia Amaya MD Intraop: Nawaf Hawkins MD Specimens: A) - Soft Tissue (Not otherwise specified), left shoulder humerus fibrus tissue B) - Soft Tissue (Not otherwise specified), left shoulder glenoid fibrus tissue C) - Hardware/Device/Foreign Body, left shoulder explant Performed By: #### S #### [facility] CLIA [id number] [address] [place] [id number] [place] [address] [place] CLINICAL HISTORY Normal [facility] Comment on above: Order Comment: Trinidadi charmaine Type: TISSUE SPECIMEN Ordering Facility: [facility] Address: [address] [place] [address] Result Comment: Pre- op diagnosis: 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 S oft tissue, left humerus, revision arthroplasty: - Negative for significant acute inflammation. B. Soft tissue, left glenoid, revision arthroplasty: - Negative for significant acute inflammation. C. Soft tissue, left shoulder explant, revision arthroplasty: - Negative for significant acute inflammation. - Explant hardware, components of shoulder arthroplasty (gross examination only). Performed By: #### S #### [facility] CLIA [id number] [address] [place] [address] OF [facility] FINAL PERFORMING LAB Normal [facility] Comment on above: Order Comment: Lorene montano Type: TISSUE SPECIMEN Ordering Facility: [facility] Address: [address] [place] [address] Result Comment: Diag nostic interpretation performed at [facility], [address] [place] [address] CLIA# [id number] Email Developer: Manjeet Dacosta M.D. Performed By: #### S #### [facility] CLIA [id number] [address] [place] [address] OF [facility] GROSS DESCRIPTION Normal [facility] Comment on above: Order Comment: Lorene montano Type: TISSUE SPECIMEN Ordering Facility: [facility] Address: [address] [place] [address] Result Comment: A. S oft Tissue (Not otherwise specified) Received fresh for intraoperative consultation labeled as left shoulder humerus fibrous tissue is multiple fragments of red-evans tissue measuring in aggregate 2.1 x 1.3 x 0.3. The specimen is totally submitted as FS A1. Gross examination performed at [facility], [address] [place] [address] 04/14/24 10:14 AM B. Soft Tissue (Not otherwise specified) Received fresh for intraoperative consultation labeled as left shoulder glenoid fibrous tissue is multiple fragments of evans-pink fibrous tissue measuring in aggregate 2.3 x 1.7 x 0.3. The specimen is totally submitted as FS B1. Gross examination performed at [place] [id number] 04/14/24 10:15 AM C. Hardware/Device/Foreign Body Received in formalin labeled left shoulder explant are components of a total shoulder prosthesis. The humeral neck component measures 6.0 x 2.5 x 1.4 cm and has the following inscription 6 135o 155o . The humeral acetabular shell measures 3.6 x 3.6 x 3.0 cm with a center screw and the following inscription Arthrex [id number] 2 2.82600 TR8916 33 and 135o 155o . The metallic humeral head measures 3.2 x 3.2 x 2.0 cm and demonstrates the following inscription Arthrex 33+4 LAT/24 [id number] 22.84949 . The articular surface demonstrates evidence of abrasive wear. The metallic glenoid post measures 3.5 x 2.5 x 2.5 cm and demonstrates the following inscription 20 [id number] . The polyethylene glenoid insert measures 3.6 x 3.6 x 1.3 cm and demonstrates the following inscription Arthrex [id number] 22.48119 33 +3 . The articular surface demonstrates evidence of abrasive wear and the rim demonstrates evidence of impingement. Also received are 5 metallic surgical screws ranging from 1.5 to 2.7 cm in length. Attached to the hardware are multiple fragments of evans soft tissue aggregating to 2.0 x 1.5 x 0.4 cm. The hardware was shown to Dr Duarte. A photograph was taken. The soft tissue was totally submitted in formalin in cassette C1. Gross examination performed at [address] [address] CLIA# [id number] [facility] 04/15/24 9:57 AM Performed By: #### S #### [facility] CLIA [id number] [address] [place] [address] [place] [address] [place] INTRAOPERATIVE DIAGNOSIS Normal [facility] Comment on above: Order Comment: Speci men Type: TISSUE SPECIMEN Ordering Facility: [facility] Address: [facility] [place] [address] Result Comment: A. S oft Tissue (Not otherwise specified) FSA 1: Negative for significant acute inflammation. (Dr. Hawkins) Intraoperative diagnosis performed at [facility], [address] [address] CLIA# [id number] B. Soft Tissue (Not otherwise specified) FSB 1: Negative for significant acute inflammation. (Dr. Hawkins) Intraoperative diagnosis performed at [facility], [facility] [place] [id number] CLIA# [id number] Performed By: #### S #### [facility] CLIA [id number] [address] [place] [address] [place] TYPE + SCREENon 04-14-2024 ABO A Normal [facility] Comment on above: Order Comment: Speci men Type: BLOOD SPECIMEN Ordering Facility: [facility] Address: [address] [place] [address] Performed By: #### T SCR #### [facility] CLIA [id number] [address] [place] [address] [place] Rh Nom (Bld) Positive Normal [facility] Comment on above: Order Comment: Speci men Type: BLOOD SPECIMEN Ordering Facility: [facility] Address: [address] [place] [address] Performed By: #### T SCR #### [facility] CLIA [id number] [address] [place] [address] [place] TYPE AND SCREEN EXPIRATION 04/17/2024 23:59 Normal [facility] Comment on above: Order Comment: Speci men Type: BLOOD SPECIMEN Ordering Facility: [facility] Address: [address] [place] [address] Performed By: #### T SCR #### [facility] CLIA [id number] [address] [place] [address] [place] VENOUS BLOOD GASES WITH IONI ZED MAGNESIUMon 04-14-2024 Base excess Calc (BldV) [Moles/Vol] 0 mmol/L Normal 0-2 [facility] Comment on above: Order Comment: Speci men Type: VENOUS BLOOD SPECIMEN Ordering Facility: [facility] Address: [address] [place] [address] Performed By: #### V ALLMG #### [facility] CLIA [id number] [address] [place] [address] [place] Body temperature 97.34 [degF] Normal [facility] Comment on above: Order Comment: Speci men Type: VENOUS BLOOD SPECIMEN Ordering Facility: [facility] Address: [address] [place] [address] Performed By: #### V ALLMG #### [facility] CLIA [id number] [address] [place] [address] [place] Calcium.ionized (Bld) [Mass/Vol] 1.18 mmol/L Normal 1.08-1.30 [facility] Comment on above: Order Comment: Speci men Type: VENOUS BLOOD SPECIMEN Ordering Facility: [facility] Address: [address] [place] [address] Performed By: #### V ALLMG #### [facility] CLIA [id number] [address] [place] [address] [place] Calcium.ionized adjusted to pH 7.4 (BldA) [Moles/Vol] 1.14 mmol/L Normal 1.08-1.30 [facility] Comment on above: Order Comment: Speci men Type: VENOUS BLOOD SPECIMEN Ordering Facility: [facility] Address: [address] [place] [address] Performed By: #### V ALLMG #### [facility] CLIA [id number] [address] [place] [address] [place] Carboxyhemoglobin (BldV) [Mass fraction] 1.1 % Normal 0.0-2.0 [facility] Comment on above: Order Comment: Speci men Type: VENOUS BLOOD SPECIMEN Ordering Facility: [facility] Address: [address] [place] [address] Result Comment: Carb oxyhemoglobin Reference Range for Smokers: 2.0-8.0% Performed By: #### V ALLMG #### [facility] CLIA [id number] [address] [place] [address] [place] CO2 (BldV) [Partial pressure] 49 mm[Hg] Normal 42-55 [facility] Comment on above: Order Comment: Speci men Type: VENOUS BLOOD SPECIMEN Ordering Facility: [facility] Address: [address] [place] [address] Performed By: #### V ALLMG #### [facility] CLIA [id number] [address] [place] [address] [place] CO2 adjusted to patient's actual temperature (BldV) [Partial pressure] 47 mmHg Normal 42-55 [facility] Comment on above: Order Comment: Speci men Type: VENOUS BLOOD SPECIMEN Ordering Facility: [facility] Address: [address] [place] [address] Performed By: #### V ALLMG #### [facility] CLIA [id number] [address] [place] [address] [place] Glucose [Mass/Vol] 141 mg/dL High 60-105 [facility] Comment on above: Order Comment: Speci men Type: VENOUS BLOOD SPECIMEN Ordering Facility: [facility] Address: [address] [place] [address] Performed By: #### V ALLMG #### [facility] CLIA [id number] [address] [place] [address] [place] HCO3 (Bld) [Moles/Vol] 26 mmol/L Normal 24-28 [facility] Comment on above: Order Comment: Speci men Type: VENOUS BLOOD SPECIMEN Ordering Facility: [facility] Address: [address] [place] [address] Performed By: #### V ALLMG #### [facility] CLIA [id number] [address] [place] [address] [place] Hematocrit (Bld) [Volume fraction] 35.7 % Low 36.0-46.0 [facility] Comment on above: Order Comment: Speci men Type: VENOUS BLOOD SPECIMEN Ordering Facility: [facility] Address: [address] [place] [address] Performed By: #### V ALLMG #### [facility] CLIA [id number] [address] [place] [address] [place] Hemoglobin (Bld) [Mass/Vol] 11.6 g/dL Normal 11.5-15.5 [facility] Comment on above: Order Comment: Speci men Type: VENOUS BLOOD SPECIMEN Ordering Facility: [facility] Address: [address] [place] [address] Performed By: #### V ALLMG #### [facility] CLIA [id number] [address] [place] [address] [place] Lactate [Moles/Vol] 2.0 mmol/L Normal 0.5-2.2 [facility] Comment on above: Order Comment: Speci men Type: VENOUS BLOOD SPECIMEN Ordering Facility: [facility] Address: [address] [place] [address] Performed By: #### V ALLMG #### [facility] CLIA [id number] [address] [place] [address] [place] Magnesium [Moles/Vol] 0.35 mmol/L Low 0.45-0.60 [facility] Comment on above: Order Comment: Speci men Type: VENOUS BLOOD SPECIMEN Ordering Facility: [facility] Address: [address] [place] [address] Performed By: #### V ALLMG #### [facility] CLIA [id number] [address] [place], [place] [address] [place] Methemoglobin (Bld) [Mass fraction] 0.5 % Normal 0.0-1.5 [facility] Comment on above: Order Comment: Speci men Type: VENOUS BLOOD SPECIMEN Ordering Facility: [facility] Address: [address] [place] [address] Performed By: #### V ALLMG #### [facility] CLIA [id number] [address] [place] [address] [place] O2 THERAPY NC = Nasal Cannula Normal [facility] Comment on above: Order Comment: Speci men Type: VENOUS BLOOD SPECIMEN Ordering Facility: [facility] Address: [address] [place] [address] Result Comment: 1 L Performed By: #### V ALLMG #### [facility] CLIA [id number] [address] [place] [address] [place] Oxygen (BldV) [Partial pressure] 30 mm[Hg] Low 35-45 [facility] Comment on above: Order Comment: Speci men Type: VENOUS BLOOD SPECIMEN Ordering Facility: [facility] Address: [address] [place] [address] Performed By: #### V ALLMG #### [facility] CLIA [id number] [address] [place] [address] [place] Oxygen adjusted to patient's actual temperature (BldV) [Partial pressure] 29 mmHg Low 35-45 [facility] Comment on above: Order Comment: Speci men Type: VENOUS BLOOD SPECIMEN Ordering Facility: [facility] Address: [address] [place] [address] Performed By: #### V ALLMG #### [facility] CLIA [id number] [address] [place] [address] [place] Oxygen saturation in Venous blood 47 % Low 60-85 [facility] Comment on above: Order Comment: Speci men Type: VENOUS BLOOD SPECIMEN Ordering Facility: [facility] Address: [address] [place] [address] Performed By: #### V ALLMG #### [facility] CLIA [id number] [address] [place] [address] [place] Oxyhemoglobin (BldV) [Mass fraction] 46 % Low 60-85 [facility] Comment on above: Order Comment: Speci men Type: VENOUS BLOOD SPECIMEN Ordering Facility: [facility] Address: [address] [place] [address] Performed By: #### V ALLMG #### [facility] CLIA [id number] [address] [place] [address] [place] pH (BldV) 7.34 [pH] Normal 7.32-7.42 [facility] Comment on above: Order Comment: Speci men Type: VENOUS BLOOD SPECIMEN Ordering Facility: [facility] Address: [address] [place] [address] Performed By: #### V ALLMG #### [facility] CLIA [id number] [address] [place] [address] [place] pH adjusted to patient's actual temperature (BldV) 7.35 Normal 7.32-7.42 [facility] Comment on above: Order Comment: Speci men Type: VENOUS BLOOD SPECIMEN Ordering Facility: [facility] Address: [address] [place] [address] Performed By: #### V ALLMG #### [facility] CLIA [id number] [address] [place] [address] [place] Potassium [Moles/Vol] 3.7 mmol/L Normal 3.5-5.0 [facility] Comment on above: Order Comment: Speci men Type: VENOUS BLOOD SPECIMEN Ordering Facility: [facility] Address: [address] [place] [address] Performed By: #### V ALLMG #### [facility] CLIA [id number] [address] [place] [address] [place] Sodium [Moles/Vol] 138 mmol/L Normal 136-144 [facility] Comment on above: Order Comment: Speci men Type: VENOUS BLOOD SPECIMEN Ordering Facility: [facility] Address: [address] [place] [address] Performed By: #### V ALLMG #### [facility] CLIA [id number] [address] [facility] [id number] [address] [place] XR SHOULDER 2V AP/TRUE AP LT on 04-14-2024 XR SHOULDER 2V AP/TRUE AP LT * * *Final Report* * * DATE OF EXAM: Apr 14 2024 12:07PM ESX [id number] - XR SHOULDER 2V AP/TRUE AP LT / PROCEDURE REASON: Post-operative / post-procedure assessment, asymptomatic * * * * Physician Interpretation * * * * HISTORY: Post-operative / post-procedure assessment, asymptomatic. TECHNIQUE: XR SHOULDER 2V AP/TRUE AP LT Laterality: Number of different views (projections): COMPARISON: CT scan dated 10/26/2023. RESULT: There has been removal of the reverse total shoulder arthroplasty and placement of a humeral cement spacer. There is no acute fracture or dislocation. Soft tissue swelling and gas. There is no evidence of acute process in the included chest. No other significant abnormality. ----- IMPRESSION: Postoperative changes. Project Product Manager: DEBBIE Transcribe Date/Time: Apr 14 2024 12:36P Dictated by : MULUGETA MCKEON MD This examination was interpreted and the report reviewed and electronically signed by: MULUGETA MCKEON MD on Apr 14 2024 12:38PM EST [id number] CN Normal [facility] Renea 04-08-2024 MAKEDAN Telephone (ORTHMN) CAROLINA GUTIERREZ ([id number]) 1960 F Date Time Provider Department 04/08/24 JOHN HOLLY During your visit today, we recorded the following information about you: Lanny Pérez RN 04/08/2024 10:16 AM Signed Pt called office stating on antibiotics for saliva gland inflammation Pt states no infection per dentist. Pt put on Clindaymcin 300mg for one week-per Dr. Elayne oro to proceed. Pt updated, will call with any further symptoms or concerns, direct office number provided. Allergies As of Date: 04/08/2024 Noted Allergy Reaction KEFLEX (CEPHALEXIN) 10/18/2004 4 - Hives PENICILLINS 01/05/2004 4 - Hives Date Reviewed: 03/30/2024 Reviewed by: Serge Ty PA-C - Fully Assessed Reason for Visit: Returning Patient's Call [408] Prescriptions as of 04/08/2024 - L.acidophilus-L.rham nosus (PROBIOTIC) 15 billion cell capsule Take 1 capsule by mouth once daily. Align - furosemide (LASIX) 20 mg tablet Take 20 mg by mouth once daily. - metoprolol succinate ER (TOPROL XL) 100 mg Take 50 mg by mouth once daily. - potassium chloride ER (KLOR-CON) 20 mEq tablet Take 20 mEq by mouth two times a day. - tiotropium bromide (SPIRIVA WITH HANDIHALER INHALATION) Inhale 1 Puff as instructed once daily. - montelukast sodium (SINGULAIR ORAL) Take 10 mg by mouth two times a day. - semaglutide (OZEMPIC) 2 mg/dose (8 mg/3 mL) pen injector Inject 2 mg subcutaneously one time a week. - ondansetron orally disintegrating (ZOFRAN ODT) 4 mg disintegrating tablet Take 1 tablet by mouth every 8 hours as needed. - RINVOQ 15 mg tablet TAKE 1 TABLET BY MOUTH 1 TIME A DAY. - celecoxib (CELEBREX) 200 mg capsule TAKE 1 CAPSULE BY MOUTH TWICE A DAY - levothyroxine (SYNTHROID) 75 mcg tablet TAKE 1.5 TABLETS ON SATURDAY, SATURDAY, SATURDAY, SATURDAY AND 2 TABLETS THE OTHER 3 DAYS - EPIPEN 2-PANCHITO 0.3 mg/0.3 mL (1:1,000) atIn - LANSOPRAZOLE 30 mg capsule Take 1 capsule by mouth daily at bedtime. - fluticasone (FLONASE) 50 mcg/actuation nasal spray 1 [place] daily at bedtime. in each nostril. - Cholecalciferol, Vitamin D3, 1,000 unit ORAL Tab Take 1 tablet by mouth once daily. - CITRACAL 500 MG (2,376 MG) EFFERVESCENT TAB Take one(1) tablet two(2) times daily. - ADVAIR 250/50 DISKUS Inhale 1 Puff as instructed two times a day. 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] 10/14/2023 S/P reverse total shoulder arthroplasty, left [*10/14/2023 Loose orthopedic implant (HCC) [T84.039A] 11/04/2023 GERD (gastroesophageal reflux disease) [K21.9] 12/20/2023 History of pulmonary embolism [Z86.711] 05/22/2022 Hypertension [I10] 12/20/2023 12/20/2023 Diabetes (HCC) [E11.9] 12/20/2023 Anemia [D64.9] 12/05/2022 Asthma without status asthmaticus [J45.909] 07/01/2010 Primary basal cell carcinoma (BCC) of right elder*12/20/2023 PONV (postoperative nausea and vomiting) [R11.2*12/20/2023 Elevated blood pressure reading in office with *12/20/2023 Inappropriate sinus tachycardia (HCC) [I47.11] 03/30/2024 Leg swelling [M79.89] 03/30/2024 Encounter Status:Closed by LANNY PÉREZ on 04/08/24 Normal [facility] CHEMISTRYOrdered By: SYSTEM SYSTEM on 04-07-2024 Creatinine [Mass/Vol] 0.6 mg/dL Normal 0.5 - 1.3 mg/dL Remisol Chem eGFR 100 mL/min/1.73 m2 Normal >=59mL/mi n/1.[address] Maxillofacial w/ Contrast on 04-07-2024 CT Maxillofacial w/ Contrast Exam Date/Time: 04/07/2024 14:41 EDT Reason for Exam: SWELLING Report IMPRESSION: RIGHT SUBMANDIBULAR GLAND SIALOADENITIS. NO DEFINITIVE DRAINABLE SOFT TISSUE ABSCESS. EXAMINATION: CT Maxillofacial w/ Contrast HISTORY: Right facial swelling. History of removal of 2 molars 3 weeks ago. TECHNIQUE: Multiple contiguous axial images were obtained of the maxillofacial bones with contrast . Multiplanar reformats were obtained. COMPARISON: None available FINDINGS: The right second maxillary molar and the right second mandibular molar have been removed. Evaluation of this region is obscured by streak artifact from dental amalgam. No definitive soft tissue edema in this region. No loculated rim-enhancing fluid collection. No overt subcutaneous soft tissue edema. The parotid glands contain tiny calcifications but are otherwise unremarkable. The right submandibular gland is enlarged and there is mild inflammation adjacent to the right submandibular gland, greatest inferiorly. The left submandibular bed is within normal limits. A radiopaque sialolith is not identified. All CT scans at this facility use dose modulation, iterative reconstruction, and/or weight based dosing when appropriate to reduce radiation dose to as low as reasonably achievable. Ordering Provider: JUANA HELLER FINAL REPORT Dictated: 04/07/2024 3:01 pm Ruthie Burrell DO Signed (Electronic Signature): 04/07/2024 3:01 pm Signed by: Ruthie Burrell DO Transcribed by: FRANCISCA Technologist: YADIEL, Technical Comments GFR (mL/min/1/73m2) >60 Contrast: Isovue 300 Contrast amount in ml's: 100 Normal [facility] Creatinineon 04-07-2024 Creatinine [Mass/Vol] 0.6 mg/dL Normal 0.5-1.3 [facility] Comment on above: Performed By: #### 2 [id number] #### [facility] [address] [place] [address] eGFRon 04-07-2024 eGFR 100 mL/min/1.73 m2 Normal >=59 [facility] Comment on above: Performed By: #### 1 [id number] ####[facility] [address] [place] [address] [facility] 04-01-2024 RAUL Telephone (ORTHIN) CAROLINA GUTIERREZ ([id number]) 1960 F Date Time Provider Department 04/01/24 STEVE GAMBINO During your visit today, we recorded the following information about you: Steve Gambino PA 04/03/2024 10:51 AM Addendum Insurance Name Rosita Patient's Insurance Case# [id number] Ordering Provider [facility] [employer] [id number] - REVISION JOINT TOTAL SHOULDER Our goal is to proceed with a two-stage revision with the for stage being removal of the current total shoulder arthroplasty and placement of antibiotic spacer. With hopeful revision surgery coming in 3 months. Possible code - PROSTHESIS REMOVAL HUMERAL AND GLENOID COMPONENT [82680 (CPT?)] Peer [place] [address] is denied as that is for shoulder replacement, and our current plan is to do a two-stage revision surgery where the first stage is removing her current implant and implementing a antibiotic spacer to fight the suspected infection as well with treatment with infectious disease and likely a 6 weeks of antibiotics through PICC line. Once we are confident that the infection is eradicated we would then start planning for stage II of reimplementation of a reverse total shoulder. Due to the submitted code and our plan not adding up the current case is denied but it was recommended to resubmit with the appropriate codes and an outline of our plan. Steve Gambino PA 04/03/2024 10:55 AM Signed Our plan for is for a two-stage revision left total shoulder arthroplasty. The current surgery scheduled for April 14 is stage I of removal of her current implant and placement of an antibiotic spacer with 6 weeks of IV antibiotics through a PICC line followed by infectious disease team. Once we are confident that the suspected infection is eradicated, then we we will plan for the second stage of the surgery which would be a reimplantation of the reverse total shoulder arthroplasty. Allergies As of Date: 04/01/2024 Noted Allergy Reaction KEFLEX (CEPHALEXIN) 10/18/2004 4 - Hives PENICILLINS 01/05/2004 4 - Hives Date Reviewed: 03/30/2024 Reviewed by: Sereg Ty PA-C - Fully Assessed Reason for Visit: Peer To Peer Consultation [[id number]] Prescriptions as of 04/03/2024 - L.acidophilus-L.rham nosus (PROBIOTIC) 15 billion cell capsule Take 1 capsule by mouth once daily. Align - furosemide (LASIX) 20 mg tablet Take 20 mg by mouth once daily. - metoprolol succinate ER (TOPROL XL) 100 mg Take 50 mg by mouth once daily. - potassium chloride ER (KLOR-CON) 20 mEq tablet Take 20 mEq by mouth two times a day. - tiotropium bromide (SPIRIVA WITH HANDIHALER INHALATION) Inhale 1 Puff as instructed once daily. - montelukast sodium (SINGULAIR ORAL) Take 10 mg by mouth two times a day. - semaglutide (OZEMPIC) 2 mg/dose (8 mg/3 mL) pen injector Inject 2 mg subcutaneously one time a week. - ondansetron orally disintegrating (ZOFRAN ODT) 4 mg disintegrating tablet Take 1 tablet by mouth every 8 hours as needed. - RINVOQ 15 mg tablet TAKE 1 TABLET BY MOUTH 1 TIME A DAY. - celecoxib (CELEBREX) 200 mg capsule TAKE 1 CAPSULE BY MOUTH TWICE A DAY - levothyroxine (SYNTHROID) 75 mcg tablet TAKE 1.5 TABLETS ON SATURDAY, SATURDAY, SATURDAY, SATURDAY AND 2 TABLETS THE OTHER 3 DAYS - EPIPEN 2-PANCHITO 0.3 mg/0.3 mL (1:1,000) atIn - LANSOPRAZOLE 30 mg capsule Take 1 capsule by mouth daily at bedtime. - fluticasone (FLONASE) 50 mcg/actuation nasal spray 1 [place] daily at bedtime. in each nostril. - Cholecalciferol, Vitamin D3, 1,000 unit ORAL Tab Take 1 tablet by mouth once daily. - CITRACAL 500 MG (2,376 MG) EFFERVESCENT TAB Take one(1) tablet two(2) times daily. - ADVAIR 250/50 DISKUS Inhale 1 Puff as instructed two times a day. Advair diskus 500/50 Problem List As Of Date 04/01/2024 Noted Resolved ALOPECIA AREATA [L63.9] 05/27/2006 HYPOTHYROIDISM [...] pos*05/09/2022 Rheumatoid factor positive [R76.8] 05/09/2022 Encounter for long-term (current) use of NSAIDs*10/01/2023 Vitamin D deficiency [E55.9] 10/01/2023 Per (more content not included)... Normal [facility] Basic metabolic 2000 panelon 03-30-2024 Anion gap [Moles/Vol] 13 mmol/L Normal 8-15 [facility] Comment on above: Order Comment: Speci men Type: BLOOD SPECIMEN Ordering Facility: [facility] Address: [address] [place] [address] Performed By: #### 2 [id number] #### [facility] CLIA [id number] [address] [place] [address] [place] Calcium [Mass/Vol] 9.6 mg/dL Normal 8.5-10.2 [facility] Comment on above: Order Comment: Speci men Type: BLOOD SPECIMEN Ordering Facility: [facility] Address: [address] [place] [address] Performed By: #### 2 4321-2 #### [facility] CLIA [id number] [address] [place] [address] [place] Chloride [Moles/Vol] 101 mmol/L Normal 98-107 [facility] Comment on above: Order Comment: Speci men Type: BLOOD SPECIMEN Ordering Facility: [facility] Address: [address] [place] [address] Performed By: #### 2 4321-2 #### [facility] CLIA [id number] [address] [place] [address] [place] CO2 [Moles/Vol] 26 mmol/L Normal 22-30 [facility] Comment on above: Order Comment: Speci men Type: BLOOD SPECIMEN Ordering Facility: [facility] Address: [address] [place] [address] Performed By: #### 2 4321-2 #### [facility] CLIA [id number] [address] [place] [address] [place] Creatinine [Mass/Vol] 0.70 mg/dL Normal 0.58-0.96 [facility] Comment on above: Order Comment: Speci men Type: BLOOD SPECIMEN Ordering Facility: [facility] Address: [address] [place] [address] Performed By: #### 2 4321-2 #### [facility] CLIA [id number] [address] [place] [address] [place] Creatinine and Glomerular filtration rate.predicted panel (S/P/Bld) 97 mL/min/1.73m??? Normal >=60 [facility] Comment on above: Order Comment: Speci men Type: BLOOD SPECIMEN Ordering Facility: [facility] Address: [address] [place] [address] Result Comment: Katlyn mated Glomerular Filtration Rate (eGFR) is calculated using the 2020 CKD-EPI creatinine equation. This equation utilizes serum creatinine, sex, and age as parameters. The creatinine assay has traceable calibration to isotope dilution-mass spectrometry. Refer to KDIGO guidelines for clinical interpretation. In patients with unstable renal function, e.g. those with acute kidney injury, the eGFR may not accurately reflect actual GFR. Performed By: #### 2 4321-2 #### [facility] CLIA [id number] [address] [place] [address] [place] Glucose [Mass/Vol] 89 mg/dL Normal 74-99 [facility] Comment on above: Order Comment: Lorene montano Type: BLOOD SPECIMEN Ordering Facility: [facility] Address: [address] [place], [place] [id number] Result Comment: The [place] Diabetes Association (ADA) provides guidance for cutoff [...] Standards of Medical Care in Diabetes 2016, [place] Diabetes [employer]. Diabetes Care. 2016.39(Suppl 1). Performed By: #### 2 4321-2 #### [facility] CLIA [id number] [address] [place] [address] [place] Potassium [Moles/Vol] 4.1 mmol/L Normal 3.7-5.1 [facility] Comment on above: Order Comment: Lorene montano Type: BLOOD SPECIMEN Ordering Facility: [facility] Address: [address] [place] [address] Performed By: #### 2 4321-2 #### [facility] CLIA [id number] [address] [place] [address] [place] Sodium [Moles/Vol] 140 mmol/L Normal 136-144 [facility] Comment on above: Order Comment: Trinidadi men Type: BLOOD SPECIMEN Ordering Facility: [facility] Address: [address] [place], [place] [id number] Performed By: #### 2 4321-2 #### [facility] CLIA [id number] [address] [place] [address] [place] Urea nitrogen [Mass/Vol] 18 mg/dL Normal 7-21 [facility] Comment on above: Order Comment: Speci men Type: BLOOD SPECIMEN Ordering Facility: [facility] Address: [address] [place] [address] Performed By: #### 2 4321-2 #### [facility] CLIA [id number] [address] [place] [address] [place] CBC W Auto Differential pane l (Bld)on 03-30-2024 Basophils (Bld) [#/Vol] 0.04 10*3/uL Normal <0.11 [facility] Comment on above: Order Comment: Speci men Type: BLOOD SPECIMEN Ordering Facility: [facility] Address: [address] [place] [address] Performed By: #### 4 537-7 #### [facility] CLIA [id number] [address] [place] [address] [place] Basophils/100 WBC (Bld) 0.4 % Normal [facility] Comment on above: Order Comment: Speci men Type: BLOOD SPECIMEN Ordering Facility: [facility] Address: [address] [place] [address] Performed By: #### 4 537-7 #### [facility] CLIA [id number] [address] [place] [address] [place] Differential cell count method Nom (Bld) Auto Normal [facility] Comment on above: Order Comment: Speci men Type: BLOOD SPECIMEN Ordering Facility: [facility] Address: [address] [place] [address] Performed By: #### 4 537-7 #### [facility] CLIA [id number] [address] [place] [address] [place] Eosinophils (Bld) [#/Vol] 0.07 10*3/uL Normal <0.46 [facility] Comment on above: Order Comment: Speci men Type: BLOOD SPECIMEN Ordering Facility: [facility] Address: [address] [place] [address] Performed By: #### 4 537-7 #### [facility] CLIA [id number] [address] [place] [address] [place] Eosinophils/100 WBC (Bld) 0.6 % Normal [facility] Comment on above: Order Comment: Speci men Type: BLOOD SPECIMEN Ordering Facility: [facility] Address: [address] [place] [address] Performed By: #### 4 537-7 #### [facility] CLIA [id number] [address] [place] [address] [place] Erythrocyte distribution width (RBC) [Ratio] 15.9 % High 11.5-15.0 [facility] Comment on above: Order Comment: Speci men Type: BLOOD SPECIMEN Ordering Facility: [facility] Address: [address] [place] [address] Performed By: #### 4 537-7 #### [facility] CLIA [id number] [address] [place] [address] [place] Hematocrit (Bld) [Volume fraction] 38.7 % Normal 36.0-46.0 [facility] Comment on above: Order Comment: Speci men Type: BLOOD SPECIMEN Ordering Facility: [facility] Address: [address] [place] [address] Performed By: #### 4 537-7 #### [facility] CLIA [id number] [address] [place] [address] [place] Hemoglobin (Bld) [Mass/Vol] 12.0 g/dL Normal 11.5-15.5 [facility] Comment on above: Order Comment: Speci men Type: BLOOD SPECIMEN Ordering Facility: [facility] Address: [address] [place] [address] Performed By: #### 4 537-7 #### [facility] CLIA [id number] [address] [place] [address] [place] Immature granulocytes (Bld) [#/Vol] 0.39 10*3/uL High <0.10 [facility] Comment on above: Order Comment: Speci men Type: BLOOD SPECIMEN Ordering Facility: [facility] Address: [address] [place] [address] Performed By: #### 4 537-7 #### [facility] CLIA [id number] [address] [place] [address] [place] Immature granulocytes/100 WBC (Bld) 3.4 % Normal [facility] Comment on above: Order Comment: Speci men Type: BLOOD SPECIMEN Ordering Facility: [facility] Address: [address] [place] [address] Performed By: #### 4 537-7 #### [facility] CLIA [id number] [address] [place] [address] [place] Lymphocytes (Bld) [#/Vol] 1.93 10*3/uL Normal 1.00-4.00 [facility] Comment on above: Order Comment: Speci men Type: BLOOD SPECIMEN Ordering Facility: [facility] Address: [address] [place] [address] Performed By: #### 4 537-7 #### [facility] CLIA [id number] [address] [place] [address] [place] Lymphocytes/100 WBC (Bld) 17.0 % Normal [facility] Comment on above: Order Comment: Speci men Type: BLOOD SPECIMEN Ordering Facility: [facility] Address: [address] [place] [address] Performed By: #### 4 537-7 #### [facility] CLIA [id number] [address] [place] [address] [place] MCH (RBC) [Entitic mass] 29.4 pg Normal 26.0-34.0 [facility] Comment on above: Order Comment: Speci men Type: BLOOD SPECIMEN Ordering Facility: [facility] Address: [address] [place] [address] Performed By: #### 4 537-7 #### [facility] CLIA [id number] [address] [place] [address] [place] MCHC (RBC) [Mass/Vol] 31.0 g/dL Normal 30.5-36.0 [facility] Comment on above: Order Comment: Speci men Type: BLOOD SPECIMEN Ordering Facility: [facility] Address: [address] [place] [address] Performed By: #### 4 537-7 #### [facility] CLIA [id number] [address] [place] [address] [place] MCV (RBC) [Entitic vol] 94.9 fL Normal 80.0-100.0 [facility] Comment on above: Order Comment: Speci men Type: BLOOD SPECIMEN Ordering Facility: [facility] Address: [address] [place] [address] Performed By: #### 4 537-7 #### [facility] CLIA [id number] [address] [place] [address] [place] Monocytes (Bld) [#/Vol] 0.70 10*3/uL Normal <0.87 [facility] Comment on above: Order Comment: Speci men Type: BLOOD SPECIMEN Ordering Facility: [facility] Address: [address] [place] [address] Performed By: #### 4 537-7 #### [facility] CLIA [id number] [address] [place] [address] [place] Monocytes/100 WBC (Bld) 6.2 % Normal [facility] Comment on above: Order Comment: Speci men Type: BLOOD SPECIMEN Ordering Facility: [facility] Address: [address] [place] [address] Performed By: #### 4 537-7 #### [facility] CLIA [id number] [address] [place] [address] [place] Neutrophils (Bld) [#/Vol] 8.19 10*3/uL High 1.45-7.50 [facility] Comment on above: Order Comment: Speci men Type: BLOOD SPECIMEN Ordering Facility: [facility] Address: [address] [place] [address] Performed By: #### 4 537-7 #### [facility] CLIA [id number] [address] [place] [address] [place] Neutrophils/100 WBC (Bld) 72.4 % Normal [facility] Comment on above: Order Comment: Speci men Type: BLOOD SPECIMEN Ordering Facility: [facility] Address: [address] [place] [address] Performed By: #### 4 537-7 #### [facility] CLIA [id number] [address] [place] [address] [place] Nucleated RBC (Bld) [#/Vol] 10*3/uL Normal <0.01 [facility] Comment on above: Order Comment: Speci men Type: BLOOD SPECIMEN Ordering Facility: [facility] Address: [address] [place] [address] Performed By: #### 4 537-7 #### [facility] CLIA [id number] [address] [place] [address] [place] Nucleated RBC/100 WBC (Bld) [Ratio] 0.0 /100 WBC Normal [facility] Comment on above: Order Comment: Speci men Type: BLOOD SPECIMEN Ordering Facility: [facility] Address: [address] [place] [address] Performed By: #### 4 537-7 #### [facility] CLIA [id number] [address] [place] [address] [place] Platelet mean volume (Bld) [Entitic vol] 9.7 fL Normal 9.0-12.7 [facility] Comment on above: Order Comment: Speci men Type: BLOOD SPECIMEN Ordering Facility: [facility] Address: [address] [place] [address] Performed By: #### 4 537-7 #### [facility] CLIA [id number] [address] [place] [address] [place] Platelets (Bld) [#/Vol] 352 10*3/uL Normal 150-400 [facility] Comment on above: Order Comment: Speci men Type: BLOOD SPECIMEN Ordering Facility: [facility] Address: [address] [place] [address] Performed By: #### 4 537-7 #### [facility] CLIA [id number] [address] [place] [address] [place] RBC (Bld) [#/Vol] 4.08 10*6/uL Normal 3.90-5.20 [facility] Comment on above: Order Comment: Speci men Type: BLOOD SPECIMEN Ordering Facility: [facility] Address: [address] [place] [address] Performed By: #### 4 537-7 #### [facility] CLIA [id number] [address] [place] [address] [place] WBC (Bld) [#/Vol] 11.32 10*3/uL High 3.70-11.00 [facility] Comment on above: Order Comment: Speci men Type: BLOOD SPECIMEN Ordering Facility: [facility] Address: [address] [place] [address] Performed By: #### 4 537-7 #### [facility] CLIA [id number] [address] [place], [place] [id number] [place] HISTORY PHYSICALon HISTORY PHYSICAL HNO ID: [id number] Author: SERGE TY PA-C Service: ? Author Type: Physician Theology Professor Type: H&P Filed: 03/31/2024 12:29 Note Text: [facility] HISTORY AND PHYSICAL EXAMINATION SERVICE DATE: 03/30/2024 SERVICE TIME: 3:33 PM PRIMARY CARE PHYSICIAN: Berry Beth, [employer]ODUCTS PROCESSOR, MAKEDA, STERILE PRODUCTS PROCESSOR.DOG LICENSER Assessment Patient has the following medical conditions which may affect merary-operative course: PONV (postoperative nausea and vomiting) Assessment: Pt reports PONV with previous surgeries/procedures . Asthma without status asthmaticus Assessment: Stable, well controlled on Singulair BID, Advair and Spiriva. Pt reports that she uses albuterol rarely. Follows with outside allergy Dr. Hernandez [facility] 03/25/[address] Del Rio [facility] 02/04/24. Lungs CTAB, SpO2 97% on RA. Hyperlipidemia Assessment: No RX currently. Monitored by PCP. Elevated blood pressure reading in office with white coat syndrome, without diagnosis of hypertension Assessment: BP today 119/74. Pt was recently started on metoprolol for IST per outside cardiology. Inappropriate sinus tachycardia (HCC) Assessment: Stable, on metoprolol. Follows with outside cardiology at [facility] 03/23/24 Oswald Curry PA-C. Pt reports that she was previously having SOB when walking. Pt reports SOB has resolved since starting metoprolol. RRR on exam today. History of pulmonary embolism Assessment: 2019, following COVID. Pt was treated with Xarelto x 1 year. No recurrence and no AC currently. GERD (gastroesophageal reflux disease) Assessment: Stable, sx managed on lansoprazole. 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 Diabetes (HCC) Assessment: Controlled on Ozempic (on Saturdays). Monitors BG at home. FBS 95 per pt. A1C 5.6% 11/2023. A1C pending. Pt instructed to hold Ozempic within 1 week of surgery, pt verbalized understanding. Leg swelling Assessment: Ongoing BLE edema since hospitalizations in November and December. On Lasix, which is helping. Pt reports that edema is worse today d/t doing a lot of driving today to appointments (pt drove over an hour and a half to get to her [facility] appointment today). Rheumatoid arthritis of multiple sites without rheumatoid factor (HCC) Assessment: Stable, on Rinvoq and Celebrex. Follows with [facility] rheumatology, Dr. Neff. Pt was instructed by Dr. Neff to hold Rinvoq and Celebrex for 1 week prior to surgery, and restart Rinvoq 1-2 weeks post-op if stable, free of infection and off abx. Pt aware of instructions. Pitt Activity Status Index: METS: Climb a flight of stairs or walk up a hill (5.50 METs) DASI Score: 5.5 Patient denies any chest pain or undue shortness of breath with the above physical activity. Clinical Frailty Scale: 3. Well, with treated comorbid disease STOP-Bang Score: Often feels tired, fatigued, or sleepy during the daytime Has or is being treated for high blood pressure BMI greater than 35 kg/m2 Patient over 50 years old Has a large neck Denies snoring loudly Has not been observed to stop breathing or choking/gasping during sleep Non-male patient STOP-Bang Score: 5 [id number] Score: Age: <65 Sex: female CHF history: No Hypertension history: Yes Stroke/TIA/thromboem bolism history: Yes Vascular disease history: No Diabetes history: Yes [id number] Score: 5 ANESTHESIA FINDINGS: Intubation History: No history of difficult intubation. No abnormal airway history Significant Anesthesia Considerations: potential postop nausea/vomiting Airway History: No history of difficult airway No abnormal airway history I - PHYSICAL EVALUATION AIRWAY Patient intubated: No. Tracheostomy tube not present Mallampati: III. TM distance: <3 FB. Neck ROM: full ROM without neurological symptoms. Mouth opening: non-adequate. Short neck: yes. Additional comments: Small mouth opening - pt reports pain with mouth opening 2/2 recent extractions (upper and lower - right side). Thick neck: yes Lip Bite Test: II Microretrognathia/Mi cronagthia/Recessed Chin: No DENTAL Dental findings: teeth intact. Additional comments: +Recent extractions x 2 - last week. II - ANESTHESIA PLAN Anesthetic Plan: other Anesthetic plan additional comments: *[facility]I - anesthesia choice. Beta Greg Monitoring Plan Post Procedure Analgesic Plan Prepared for Surgery: optimally prepared for surgery. CONSULTS: Patient does not require consults for optimization at this time Planned Anesthetic: other anesthesia choice Pre-op Rinvoq Recommendations - [facility] 12/26/23 Stevo Neff MD 12/26/23 7:09 PM Note Please Call patient and notify surgery team. Notified of upcoming surgery/procedure. Please Hold rinvoq and celebrex 1week prior to surgery. Ok to continue daily rinvoq while on bacitracin. May resume rinvoq 1-2weeks after surgery if stable, infection free AND (more content not included)... Normal [facility] HbA1c (Bld)on 03-30-2024 Average glucose Estimated from glycated hemoglobin (Bld) [Mass/Vol] 126 mg/dL Normal [facility] Comment on above: Order Comment: Lorene montano Type: BLOOD SPECIMEN Ordering Facility: [facility] Address: [address] [place] [address] Result Comment: eAG: (Estimated average glucose) is a calculated value from HgbA1c and is communications representative of the average blood glucose level in the last 2-3 month period. Performed By: #### 4 537-7 #### [facility] CLIA [id number] [address] [place] [address] [place] HbA1c (Bld) [Mass fraction] 6.0 % High 4.3-5.6 [facility] Comment on above: Order Comment: Lorene montano Type: BLOOD SPECIMEN Ordering Facility: [facility] Address: [address] [place] [address] Result Comment: [place] Diabetes Association guidelines indicate that patients with HgbA1c in the range 5.7-6.4% are at increased risk for development of diabetes, and intervention by lifestyle modification may be beneficial. HgbA1c greater or equal to 6.5% is considered diagnostic of diabetes. Performed By: #### 4 537-7 #### [facility] CLIA [id number] [address] [place] [address] [place] Heart and Vascular Office/Cl inic Noteon 03-23-2024 Heart and Vascular Office/Clinic Note Heart and Vascular Office/Clinic Note Chief Complaint 1 month F/U History of Present Illness Carolina is a 63 year old female with tachycardia. Holter monitor from 03/05/2024 showed an average heart rate of 105 bpm, no secondary arrhythmia detected and occasional SVE and VE's. Echo from 12/2023 showed normal EF of 60-65%, no significant valvular disease, normal LV and RV. Patient comes in for 6-week follow-up today. At last visit, ordered patient a Holter monitor at which showed above findings. Patient was started on metoprolol ER 25 mg daily. Patient reports that her symptoms of shortness of breath improved significantly after starting metoprolol. Previously, she would get quite short of breath when she is walking longer distances and recently she was able to walk a half of a mile without much issue at all. Patient denies chest pain, heart palpitations, dizziness/lightheade dness, and swelling in lower legs. NOTE FROM 02/06/2024: Pt was in the hospital recently due to SOB and dyspnea where she has been dx with tachycardia. Her echo from 01/06/2024 was grossly normal with an EF of 60-65%, neg for enlargement, normal LV RV with no changes overall from 2021 echo. Pt states she started noticing the elevated heart rate in the last few years but she also has asthma as well that she thought was contributing to this. She states that she feels her heart rate increase and notices some SOB with walking, or strenuous activity. Her SOB has not increased since her hospital stay and seems to be the same as she has experienced in the past. Pt agrees to undergo a Holter monitor to further evaluate and possibly start her on a medication to help stabilize her tachycardia dependent on Holter results. Pt recently dx with cellulitis of the right leg, some edema was seen on right leg in office today but overall looked like it was healing well. Pt denies angina or anginal-like symptoms. Patient specifically Review of Systems PHQ Score Initial Depression Screen Score: 0 SCORE ROS - Provider Constitutional: no fever, no chills, no sweats, no weakness Respiratory: no shortness of breath, no cough Cardiovascular: no chest pain Neuro: no dizziness. no loss of consciousness Physical Exam Vitals & Measurements HR: 74(Peripheral) RR: 18 BP: 130/80 HT: 59 in HT: 149 cm WT: 85.8 kg WT: 188.76 lb BMI: 38.65 General: alert, no acute distress Neck: Supple, noJVD nocarotid bruit Cardiovascular: regular rate and rhythm, no murmur normal peripheral perfusion Respiratory: Lungs CTAB, respirations non labored Extremities: no edema left lower extremity. no edema right lower extremity Neurological: oriented x 4, LOC appropriate for age, speech normal Skin: Warm, dry, intact- no rash or concerning lesions Cardiac Diagnostics Holter monitor from 03/05/2024: 1. predominant rhythm was sinus rhythm/sinus tachycardia 2. Minimum heart rate 71 bpm, average heart rate 105 bpm, max heart rate 138 bpm 3. No secondary arrhythmia detected. 4. Total SVE's: 215 times (0.07%) including trigeminy, runs 3 of 4 beats with heart rate 252 bpm 5. Total VE's: 1639 times (0.55%) including couplets, trigeminy (01/06/2024 11:19 EDT Echo Transthoracic Complete) Interpretation Summary: Ejection Fraction = 60-65%. Normal LV and RV. No significant valve disease. Normal estimated PA pressure. Impaired diastolic relaxation. No changes from 2021. [1] Assessment/Plan 1. Inappropriate sinus tachycardia (I47.11: Inappropriate sinus tachycardia, so stated) Patient has appropriate sinus tachycardia. Had a recent Holter monitor which her average heart rate was 105. Patient was taking metoprolol ER 25 mg daily. Since starting that medication, she states that her symptoms of shortness of breath have improved significantly. Heart rate is still a little on the high side, so want to increase metoprolol to ER 50 mg daily at this time. Ordered: metoprolol, 50 mg = 1 tab(s), Oral, Daily, # 90 tab(s), Refills(s) 0, Pharmacy: [facility]/pharmacy #[id number], 149, cm, 03/23/24 14:03:00 EDT, Height/Length Dosing, 85.8, kg, 03/23/24 14:10:00 EDT, Weight Dosing Follow-up with me in 3 months Portions of this record may have been created with voice recognition artificial intelligence software, specifically [employer], [employer] and or [employer]. Substitutions may have occurred due to the inherent limitations of voice recognition and artificial intelligence software. Follow-up No qualifying data available Problem List/Past Medical History Ongoing Adult BMI 38.0-38.9 kg/sq m Allergic rhinitis Anemia Annual physical exam Anti-citrullinated protein antibody detected Asthma Bilateral otitis media BMI 40.0-44.9, adult Bronchitis Cellulitis, leg Chronic peripheral venous hypertension with lower extremity complication Chronic sinusitis Chronically ill Colitis Cough Derangement of knee Diverticular disease DM2 (diabetes mellitus, type 2) Esophageal web Exposu (more content not included)... Normal [facility] Comment on above: Result Comment: Elec tronically Signed By: Antoinette SAMANO, Oswald Camacho\Date and Time Signed: 03/23/24 14:33 EDT Holter Monitoron 03-23-2024 Holter Monitor Holter Monitor HOLTER MONITOR ENROLLMENT PERIOD: 03/03/2024 through 03/05/2024 INDICATION: Tachycardia FINDINGS: Over the monitoring time, the monitor registered predominant sinus rhythm with minimum heart rate of 71, average heart rate 105, maximum heart rate 138 beats per minute. There were three patient events with symptoms of not specified and baseline. There were no secondary arrhythmias. Low burden of premature supraventricular and ventricular ectopy was noted of 0.07% and 0.65%, respectively. CONCLUSIONS: Overall unremarkable Holter monitor with no evidence of atrial fibrillation, malignant ventricular arrhythmias, or clinically significant pauses. READ BY: Nick Soni MD ca Dictated: 03/19/2024 [id number] Transcribed: 03/23/2024 cc:Oswald Curry PA-C [facility] Comment on above: Result Comment: Elec tronically Signed By: Nae HDZ, Nick Hutchins.br\Date and Time Signed: 03/23/24 14:11 EDT Aspergillus fumagatus IgEon 03-20-2024 A. fumigatus IgE Qn (S) 0.10 kU/L Abnormal Class 0/I [facility] Comment on above: Levels of Specific I gE Class Description of Class ----- < 0.10 0 Negative 0.10 - 0.31 0/I Equivocal/Low 0.32 - 0.55 I Low 0.56 - 1.40 II Moderate 1.41 - 3.90 III High 3.91 - 19.00 IV Very High 19.01 - 100.00 V Very High >100.00 Very High CBC W Auto Differential pane l (Bld)on 03-20-2024 Basophils (Bld) [#/Vol] 0.0 10*3/uL [facility] Basophils/100 WBC (Bld) 0 % Not Estab. [facility] Eosinophils (Bld) [#/Vol] 0.0 10*3/uL [facility] Eosinophils/100 WBC (Bld) 0 % Not Estab. [facility] Erythrocyte distribution width (RBC) [Ratio] 15.7 % High 11.7 - 15.4 % [facility] Hematocrit (Bld) [Volume fraction] 41.8 % 34.0 - 46.6 % [facility] Hemoglobin (Bld) [Mass/Vol] 13.3 g/dL 11.1 - 15.9 g/dL [facility] Immature granulocytes (Bld) [#/Vol] 0.1 10*3/uL [facility] Immature granulocytes/100 WBC (Bld) 1 % Not Estab. [facility] Lymphocytes (Bld) [#/Vol] 2.3 10*3/uL [facility] Lymphocytes/100 WBC (Bld) 24 % Not Estab. [facility] MCH (RBC) [Entitic mass] 29.8 pg 26.6 - 33.0 pg [facility] MCHC (RBC) [Mass/Vol] 31.8 g/dL 31.5 - 35.7 g/dL [facility] MCV (RBC) [Entitic vol] 94 fL 79 - 97 fL [facility] Monocytes (Bld) [#/Vol] 0.5 10*3/uL [facility] Monocytes/100 WBC (Bld) 5 % Not Estab. [facility] Neutrophils (Bld) [#/Vol] 6.6 10*3/uL [facility] Neutrophils/100 WBC (Bld) 70 % Not Estab. [facility] Platelets (Bld) [#/Vol] 330 10*3/uL [facility] RBC (Bld) [#/Vol] 4.47 10*6/uL [facility] WBC (Bld) [#/Vol] 9.5 10*3/uL [facility] Diphtheria / Tetanus Antibod y Panelon 03-20-2024 C. diphtheriae Ab IA Qn (S) 0.11 [facility] Comment on above: Interpretation: Non-Protective <0.10 Protective >=0.10 For research use only. C. tetani toxoid IgG IA Qn 0.30 [facility] Comment on above: Interpretation: Non-Protective <0.10 Protective >=0.10 Results for this test are for research purposes only by the assay's gas maker. The performance characteristics of this product have not been established. Results should not be used as a diagnostic procedure without confirmation of the diagnosis by another medically established diagnostic product or procedure. IgAon 03-20-2024 IgA [Mass/Vol] 197 mg/dL 87 - 352 mg/dL [facility] IgEon 03-20-2024 IgE Qn 32 [IU]/L [facility] IgGon 03-20-2024 IgG [Mass/Vol] 645 mg/dL 586 - 1602 mg/dL [facility] IgMon 03-20-2024 IgM [Mass/Vol] 92 mg/dL 26 - 217 mg/dL [facility] No Panel Informationon 03-20 Interpretation and review of laboratory results Abnormal [facility] Performed at: 01 - [address] [id number] Manufacturing Associate: Kenji Billy PhD, Phone: [phone] [facility] Performed at: [address] [id number] Manufacturing Associate: Ryne Melchor MD, Phone: [phone] [facility] P[facility] (23 SEROTYPE )on 03-20-2024 S. pneumoniae Marshallese type 1 IgG IA (S) [Mass/Vol] 0.9 ug/mL Low 1.3 - PINF ug/mL [facility] S. pneumoniae Marshallese type 10A IgG IA (S) [Mass/Vol] <0.1 Low 1.3 - PINF ug/mL [facility] S. pneumoniae Marshallese type 11A IgG IA (S) [Mass/Vol] <0.1 Low 1.3 - PINF ug/mL [facility] S. pneumoniae Marshallese type 12F IgG IA (S) [Mass/Vol] <0.1 Low 1.3 - PINF ug/mL [facility] S. pneumoniae Marshallese type 14 IgG IA (S) [Mass/Vol] 3.5 ug/mL 1.3 - PINF ug/mL [facility] S. pneumoniae Marshallese type 15B IgG IA (S) [Mass/Vol] <0.2 Low 1.3 - PINF ug/mL [facility] S. pneumoniae Marshallese type 17F IgG IA (S) [Mass/Vol] 0.2 ug/mL Low 1.3 - PINF ug/mL [facility] S. pneumoniae Marshallese type 18C IgG IA (S) [Mass/Vol] <0.1 Low 1.3 - PINF ug/mL [facility] S. pneumoniae Marshallese type 19A IgG IA (S) [Mass/Vol] 9.2 ug/mL 1.3 - PINF ug/mL [facility] S. pneumoniae Marshallese type 19F IgG IA (S) [Mass/Vol] 1.0 ug/mL Low 1.3 - PINF ug/mL [facility] S. pneumoniae Marshallese type 2 IgG IA (S) [Mass/Vol] <0.2 Low 1.3 - PINF ug/mL [facility] S. pneumoniae Marshallese type 20A IgG IA (S) [Mass/Vol] <0.2 Low 1.3 - PINF ug/mL [facility] S. pneumoniae Marshallese type 22F IgG IA (S) [Mass/Vol] 0.3 ug/mL Low 1.3 - PINF ug/mL [facility] S. pneumoniae Marshallese type 23F IgG IA (S) [Mass/Vol] 3.1 ug/mL 1.3 - PINF ug/mL [facility] S. pneumoniae Marshallese type 3 IgG IA (S) [Mass/Vol] <0.1 Low 1.3 - PINF ug/mL [facility] S. pneumoniae Marshallese type 33F IgG IA (S) [Mass/Vol] 1.0 ug/mL Low 1.3 - PINF ug/mL [facility] Comment on above: *This test was devel oped and its performance characteristics determined by [employer]. It has not been cleared or approved by the U.S. Food and Drug Administration. FLAG Interpretation: A = Abnormal, H = High, L = Low S. pneumoniae Marshallese type 4 IgG IA (S) [Mass/Vol] <0.1 Low 1.3 - PINF ug/mL [facility] S. pneumoniae Marshallese type 5 IgG IA (S) [Mass/Vol] 0.4 ug/mL Low 1.3 - PINF ug/mL [facility] S. pneumoniae Marshallese type 6B IgG IA (S) [Mass/Vol] 1.2 ug/mL Low 1.3 - PINF ug/mL [facility] S. pneumoniae Marshallese type 7F IgG IA (S) [Mass/Vol] 5.2 ug/mL 1.3 - PINF ug/mL [facility] S. pneumoniae Marshallese type 8 IgG IA (S) [Mass/Vol] 2.7 ug/mL 1.3 - PINF ug/mL [facility] S. pneumoniae Marshallese type 9N IgG IA (S) [Mass/Vol] <0.1 Low 1.3 - PINF ug/mL [facility] S. pneumoniae Marshallese type 9V IgG IA (S) [Mass/Vol] 1.4 ug/mL 1.3 - PINF ug/mL [facility] Performed at: 02 - [place] [id number], [facility] [address], [place] [id number] Manufacturing Associate: ENEDINA Calderón PhDBC, Phone: [phone] [facility] Family Medicine Office/Clini c Noteon 03-10-2024 Family Medicine Office/Clinic Note Family Medicine Office/Clinic Note HPI Staff Carolina is a 63 year old female presenting with Onset: Last Saturday Location: right leg Duration: Characteristics:_ burning, Aggravated by: bending could not get her leg up to get in the car Relieved by: ice, heat, Tylenol, Chiropractor 2x Timing:_ Associated Symptoms:_ And wound on her leg, she is going on vacation and wants to make sure she can get it wet or what she needs to do to care for it Having surgery April 14 for her left shoulder Doing this at [facility] History of Present Illness pt presents for follow up on wound on clarke. is still using dressing. will need pre surgery appt soon Review of Systems PHQ Score Initial Depression Screen Score: 0 SCORE Physical Exam Vitals & Measurements T: 36.8 ?C(Oral) HR: 104(Peripheral) RR: 20 BP: 122/82 SpO2: 99% HT: 59 in HT: 149.0 cm WT: 87.2 kg WT: 191.84 lb BMI: 39.28 General: alert, no acute distress ENMT: oral mucosa moist, no pharyngeal erythema or exudate Cardiovascular: regular rate and rhythm, normal peripheral perfusion Respiratory: Lungs CTA, respirations non labored Extremities: no deformity, no trauma Neurological: oriented x 4, LOC appropriate for age, CN II-XII intact, motor strength equal & normal bilaterally, speech normal wound on right lower clarke is healing well Assessment/Plan 1. Wound of skin (T14.8XXA: Other injury of unspecified body region, initial encounter) wound on left clarke is healing well. pt continues changing dressing at home. healthy tissue is noted on exam. no oozing or redness noted. 2. Non-smoker (Z78.9: Other specified health status) continue not smoking 3. BMI 39.0-39.9,adult (Z68.39: Body mass index [BMI] 39.0-39.9, adult) BMI education given 4. Class 1 obesity due to excess calories in adult (E66.09: Other obesity due to excess calories) see above Follow-up No qualifying data available Problem List/Past Medical History Ongoing Adult BMI 38.0-38.9 kg/sq m Allergic rhinitis Anemia Annual physical exam Anti-citrullinated protein antibody detected Asthma Bilateral otitis media BMI 40.0-44.9, adult Bronchitis Cellulitis, leg Chronic peripheral venous hypertension with lower extremity complication Chronic sinusitis Chronically ill Colitis Cough Derangement of knee Diverticular disease DM2 (diabetes mellitus, type 2) Esophageal web Exposure to COVID-19 virus Fluid level behind tympanic membrane of both ears Gastroesophageal reflux disease without esophagitis Hemorrhoids History of colitis Hospital discharge follow-up Hx of pulmonary embolus Hypothyroidism Hypoxemia Left lower lobe pneumonia Low hemoglobin Lung nodules Moderate asthma without complication Morbid obesity with BMI of 40.0-44.9, adult Nasal congestion Non-insulin dependent type 2 diabetes mellitus Obesity due to excess calories Oral thrush Pre-op exam Rheumatoid arthritis involving multiple sites with positive rheumatoid factor Right otitis media Shingles rash Shortness of breath Smoker Viral gastritis Weight loss, unintentional Wheezing Wound of skin Historical Arthritis Asthma Change in bowel habits COVID-19 Dysphagia Loose stools Nausea Procedure/Surgical History EGD (esophagogastroduode noscopy) gastric outlet reduction (05/21/2022), Colonoscopy (05/09/2021), EGD - Esophagogastroduoden oscopy (05/09/2021), Cataract extraction, Cholecystectomy, Foot repair, Hysterectomy, Knee replacement, Shoulder, Tonsillectomy and adenoidectomy; age 12 or over. Medications celecoxib 200 mg Cap, 200 mg= 1 cap(s), Oral, BID cyclobenzaprine 10 mg Tab, 10 mg= 1 tab(s), Oral, TID, PRN DuoNeb 2.5 mg-0.5 mg/3 mL Soln-Inh, 3 mL, Inhalation, QID Flonase 0.05 mg/inh nasal spray, 2 spray(s), Nasal, Daily furosemide 20 mg Tab, See Instructions, 4 refills Klor-Con M20 oral tablet, extended release, See Instructions levothyroxine 137 mcg (0.137 mg) Tab, See Instructions, 4 refills methylPREDNISolone 4 mg tab dosepak, 1 packet(s), Oral, Once metoprolol succinate 25 mg ER Tab, 25 mg= 1 tab(s), Oral, Daily, 2 refills montelukast 10 mg Tab, See Instructions Mucinex, 600 mg, Oral, Daily ondansetron 4 mg Tab, 4 mg= 1 tab(s), Oral, As Directed, PRN Ozempic (1 mg dose), See Instructions Pantoprazole [address] Tab, 40 mg= 1 tab(s), Oral, Daily, 3 refills ProAir RespiClick 90 mcg/inh inhalation powder, 2 puff(s), Inhalation, q4hr, PRN, 11 refills Prolia, 60 mg, SubCutaneous, q6mo Spiriva Respimat 1.25 mcg/inh inhalation aerosol, 2 inh, Inhalation, Daily traMADOL 50 mg Tab, 50 mg= 1 tab(s), Oral, q6hr, PRN [employer] Inhub 250 mcg-50 mcg inhalation powder, See Instructions Zofran 4 mg Tab, 4 mg= 1 tab(s), Oral, q6hr, 1 refills Allergies Cefzil (Unknown) Eliquis (Unknown) Keflex (Hives) Pradaxa (Unknown) penicillin G benzathine (Hives) Social History Alcohol - Low Risk, 01/08/2024 Current, Beer, Wine, 1-2 t (more content not included)... Normal [facility] Comment on above: Result Comment: Elec tronically Signed By: Berry Canales.dusty\Date and Time Signed: 03/10/24 15:19 EDT Renea 02-27-2024 RAUL Telephone (JULI) CAROLINA GUTIERREZ ([id number]) 1960 F Date Time Provider Department 02/27/24 STEVO NEFF During your visit today, we recorded the following information about you: Mary LayneCHRIS 02/27/2024 2:13 PM Signed PA for Rinvoq ER submitted via Cover [employer]. Perez: [id number] Your request has been approved PA Case: [id number], Status: Approved, Coverage Starts on: 02/27/2024 12:00:00 AM, Coverage Ends on: 02/26/2025 12:00:00 AM. Allergies As of Date: 02/27/2024 Noted Allergy Reaction KEFLEX (CEPHALEXIN) 10/18/2004 PENICILLINS 01/05/2004 Date Reviewed: 12/20/2023 Reviewed by: Louis Cates APRN.DOG LICENSER - Fully Assessed Reason for Visit: Medication Authorization [1699] Cmt: Rinvoq ER Prescriptions as of 02/27/2024 - tiotropium bromide (SPIRIVA WITH HANDIHALER INHALATION) Inhale as instructed. - ciprofloxacin HCl (CIPRO ORAL) Take by mouth. - montelukast sodium (SINGULAIR ORAL) Take by mouth. - semaglutide (OZEMPIC) 2 mg/dose (8 mg/3 mL) pen injector Inject 2 mg subcutaneously one time a week. - ondansetron orally disintegrating (ZOFRAN ODT) 4 mg disintegrating tablet Take 1 tablet by mouth every 8 hours as needed. - RINVOQ 15 mg tablet TAKE 1 [...] capsule by mouth daily at bedtime. - fluticasone (FLONASE) 50 mcg/actuation nasal spray 1 [place] daily at bedtime. in each nostril. - Cholecalciferol, Vitamin D3, 1,000 unit ORAL Tab Take 1 tablet by mouth once daily. - CITRACAL 500 MG (2,376 MG) EFFERVESCENT TAB Take one(1) tablet two(2) times daily. 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] 10/14/2023 S/P reverse total shoulder arthroplasty, left [*10/14/2023 Loose orthopedic implant (HCC) [T84.039A] 11/04/2023 GERD (gastroesophageal reflux disease) [K21.9] 12/20/2023 History of pulmonary embolism [Z86.711] 05/22/2022 Hypertension [I10] 12/20/2023 12/20/2023 Diabetes (HCC) [E11.9] 12/20/2023 Anemia [D64.9] 12/05/2022 Asthma without status asthmaticus [J45.909] 07/01/2010 Primary basal cell carcinoma (BCC) of right elder*12/20/2023 PONV (postoperative nausea and vomiting) [R11.2*12/20/2023 Elevated blood pressure reading in office with *12/20/2023 Encounter Status:Closed by MARY LAYNE on 02/27/24 Normal [facility] Heart and Vascular Office/Cl inic Noteon 02-06-2024 Heart and Vascular Office/Clinic Note Heart and Vascular Office/Clinic Note Chief Complaint Inpatient F/U History of Present Illness Carolina is a 63 year old female with tachycardia. She comes in today for an inpt follow up. Pt was in the hospital recently due to SOB and dyspnea where she has been dx with tachycardia. Her echo from 01/06/2024 was grossly normal with an EF of 60-65%, neg for enlargement, normal LV RV with no changes overall from 2021 echo. Pt states she started noticing the elevated heart rate in the last few years but she also has asthma as well that she thought was contributing to this. She states that she feels her heart rate increase and notices some SOB with walking, or strenuous activity. Her SOB has not increased since her hospital stay and seems to be the same as she has experienced in the past. Pt agrees to undergo a Holter monitor to further evaluate and possibly start her on a medication to help stabilize her tachycardia dependent on Holter results. Pt recently dx with cellulitis of the right leg, some edema was seen on right leg in office today but overall looked like it was healing well. Pt denies angina or anginal-like symptoms. Patient specifically denies chest pain, edema, dizziness, near syncope, or syncope. ED CONSULT 01/05/2024 63-year-old female with history of syncope and negative cardiac workup in 2021. She had a stress test and echocardiogram which were essentially normal. She comes in now with what was felt to be asthma exacerbation. She is short of breath had worsening cough but also had lower extremity swelling and concern for congestive heart failure was brought up by hospitalist team. Patient did have some chest discomfort as well in the upper area of her chest associated with the shortness of breath. It was nonexertional. There was no radiation. NOTE FROM 07/24/2022 Carolina Gutierrez is a female patient without cardiac history recently seen by him during hospitalization at [place] after syncopal episode at home. Her ECG showed normal sinus rhythm with diffuse T wave abnormalities. She had negative troponin trend. She no anginal symptoms. And echocardiogram performed during her stay showed normal LV function, no valvular disease. She hws ordered outpatient event monitor and stress testing. She had testing completed and she is here to review results.Here today and she is doing well. No further syncopal episodes. She has no chest pain, palpitations, dizziness. No dyspnea, edema orthopnea, PND. Review of Systems PHQ Score Initial Depression Screen Score: 0 SCORE ROS - Provider Constitutional: no fever, no chills, no sweats, no weakness Respiratory: no shortness of breath, no cough Cardiovascular: no chest pain pos palpitations Neuro: no dizziness. no loss of consciousness Cardiac Diagnostics (01/06/2024 11:19 EDT Echo Transthoracic Complete) Interpretation Summary Ejection Fraction = 60-65%. Normal LV and RV. No significant valve disease. Normal estimated PA pressure. Impaired diastolic relaxation. No changes from 2021. [1] Physical Exam Vitals & Measurements HR: 95(Peripheral) RR: 18 BP: 110/70 SpO2: 92% HT: 59 in HT: 149 cm WT: 86.2 kg WT: 189.64 lb BMI: 38.83 General: alert, no acute distress Cardiovascular: regular rate and rhythm, no murmur normal peripheral perfusion Respiratory: Lungs CTAB, respirations non labored Extremities: no edema left lower extremity. +1 edema right lower extremity. Patient also has bandage on right lower extremity. No erythema could be seen Neurological: oriented x 4, LOC appropriate for age, speech normal Skin: Warm, dry, intact- no rash or concerning lesions Assessment/Plan 1. Tachycardia (R00.0: Tachycardia, unspecified) Pt dx with tachycardia in hospital 01/05/2024. Pt has ongoing elevated heart rate, palpitations and SOB with exertion, she will undergo Holter monitor to further evaluate and follow up in 1 month to reassess. Want to get the holter monitor prior to initiating any other medications. Patient will return to clinic in 1 month for regular follow up appointment with me. Patient will call office for sooner appointment for acute concerns. IMarilyn, personally scribed for Oswald Curry PA-C 02/06/2024 Follow-up No qualifying data available Problem List/Past Medical History Ongoing Adult BMI 38.0-38.9 kg/sq m Allergic rhinitis Anemia Annual physical exam Anti-citrullinated protein antibody detected Asthma Bilateral otitis media BMI 40.0-44.9, adult Bronchitis Cellulitis, leg Chronic peripheral venous hypertension with lower extremity complication Chronic sinusitis Chronically ill Colitis Cough Derangement of knee Diverticular disease DM2 (diabetes mellitus, type 2) Esophageal web Exposure to COVID-19 virus Fluid level behind tympanic membrane of both ears Gastroesophageal reflux disease without esophagitis Hemorrhoids History of colitis Hospital discharge follow-up Hx of pulmonary embolus Hypothyroidism Hypoxemia Left lowe (more content not included)... Normal [facility] Comment on above: Result Comment: Elec tronically Signed By: Oswald Curry PA-C\.br\Date and Time Signed: 02/06/24 16:22 EDT\.br\Electronically Co-Signed By: Marilyn Neves\.br\Date and Time Co-Signed: 02/06/24 16:18 EDT [facility] 02-05-20 [facility] Case Information Case Priority: None Programs: -- Referral Source: [employer] Referral Reason: Care coordination Case Type: Transition Care Management Risk Score: -- Case Status: Enrolled (January 27, 2024) Date Assigned: January 27, 2024 Assigned By: Pop Alvarez Date Enrolled: January 27, 2024 Assigned Primary Personnel: Pop Alvarez Assigned Secondary Personnel: -- Case Physician: Berry Canales Problems Ongoing Adult BMI 38.0-38.9 kg/sq m Allergic rhinitis Anemia Annual physical exam Anti-citrullinated protein antibody detected Asthma Bilateral otitis media BMI 40.0-44.9, adult Bronchitis Cellulitis, leg Chronic peripheral venous hypertension with lower extremity complication Chronic sinusitis Chronically ill Colitis Cough Derangement of knee Diverticular disease DM2 (diabetes mellitus, type 2) Esophageal web Exposure to COVID-19 virus Fluid level behind tympanic membrane of both ears Gastroesophageal reflux disease without esophagitis Hemorrhoids History of colitis Hospital discharge follow-up Hx of pulmonary embolus Hypothyroidism Hypoxemia Left lower lobe pneumonia Low hemoglobin Lung nodules Moderate asthma without complication Morbid obesity with BMI of 40.0-44.9, adult Nasal congestion Non-insulin dependent type 2 diabetes mellitus Obesity due to excess calories Oral thrush Pre-op exam Rheumatoid arthritis involving multiple sites with positive rheumatoid factor Right otitis media Shingles rash Shortness of breath Smoker Viral gastritis Weight loss, unintentional Wheezing Historical Arthritis Asthma Change in bowel habits COVID-19 Dysphagia Loose stools Nausea Procedure/Surgical History EGD (esophagogastroduode noscopy) gastric outlet reduction (05/21/2022), Colonoscopy (05/09/2021), EGD - Esophagogastroduoden oscopy (05/09/2021), Cataract extraction, Cholecystectomy, Foot repair, Hysterectomy, Knee replacement, Shoulder, Tonsillectomy and adenoidectomy; age 12 or over. Home Medications celecoxib 200 mg Cap, 200 mg= 1 cap(s), Oral, BID DuoNeb 2.5 mg-0.5 mg/3 mL Soln-Inh, 3 mL, Inhalation, QID Flonase 0.05 mg/inh nasal spray, 2 spray(s), Nasal, Daily furosemide 20 mg Tab, See Instructions Klor-Con M20 oral tablet, extended release, See Instructions levothyroxine 137 mcg (0.137 mg) Tab, See Instructions, 4 refills montelukast 10 mg Tab, See Instructions Mucinex, 600 mg, Oral, Daily Ozempic (1 mg dose), See Instructions Pantoprazole [address] Tab, 40 mg= 1 tab(s), Oral, Daily, 3 refills ProAir RespiClick 90 mcg/inh inhalation powder, 2 puff(s), Inhalation, q4hr, PRN, 11 refills Prolia, 60 mg, SubCutaneous, q6mo Spiriva Respimat 1.25 mcg/inh inhalation aerosol, 2 inh, Inhalation, Daily traMADOL 50 mg Tab, 50 mg= 1 tab(s), Oral, q6hr, PRN Wixela Inhub 250 mcg-50 mcg inhalation powder, See Instructions Zofran 4 mg Tab, 4 mg= 1 tab(s), Oral, q6hr, 1 refills Allergies Cefzil (Unknown) Eliquis (Unknown) Keflex (Hives) Pradaxa (Unknown) penicillin G benzathine (Hives) Social History Alcohol - Low Risk, 01/08/2024 Current, Beer, Wine, 1-2 times per year, 05/22/2022 Employment/School - Low Risk, 05/22/2022 Exercise - Does not exercise, 05/22/2022 Home/Environment - Low Risk, 05/22/2022 Nutrition/Health - Low Risk, 05/22/2022 Sexual - No Risk, 05/22/2022 Substance Abuse - Denies Substance Abuse, 01/20/2024 Current, Marijuana, 1-2 times per year, 01/20/2024 Tobacco - Denies Tobacco Use, 01/20/2024 Never (less than 100 in lifetime) Tobacco Use:. Never Smokeless Tobacco Use:. Cigarettes, Household tobacco concerns: No., 01/29/2024 Family History Cancer: Mother. Diabetes mellitus type 2: Sister. Stroke: Father. Screenings and Assessments 01/27/24 11:19:00 Result Name Value Comment Phone Call Monitoring Consent Agreed to continue call Phone Verification Patient Information Full name, street address and date of verified CM Program Enrollment Provides verbal consent for enrollment Goals and Interventions Care Plan Progress Note TCM#2- Patient states things are 'pretty good.' Notes she is 'feeling a lot better.' Notes there is still BLE edema but it continues to improve each day. Patient elevates BLE as often as she is able. Patient notes the home health nurse is coming once a week to change her leg dressing. Patient notes HH reported her right leg (from derm procedure) wound is looking a lot better. Patient is eating and drinking well. Denies urinary or bowel issues. Patient reports she still has some pain from left side shingles break out. Notes pain is mostly in the am and pm, rates 7/10 at the worst. Patient notes she takes tramadol once daily and this helps wit pain. Patient completed [facility]. Patient declined need for OV at this time. States she will advise (more content not included)... Normal [facility] Coding Queryon 02-03-2024 Coding Query Coding Query - From: Beatriz Morton RN To: Lalo Boyd DO; Cc: Kendy Pritchard; Sent: 01/29/2024 12:16:05 EDT ! Subject: Coding Query Due Date/Time: 02/03/2024 12:13:00 EDT Caller Name: CAROLINA GUTIERREZ; Caller Number: Janee , Kenney Documentation in the medical record indicates this patient developed an infection after the following surgical procedure: skin biopsy on right clarke The following is also documented in the medical record: DC summary- She had a skin biopsy performed on her right clarke for possible skin cancer 3 weeks prior. It has been draining and having surrounding erythema On the medical service patient was admitted for sepsis manifested as leukocytosis, tachycardia and cellulitis. She was switched off the clindamycin to IV meropenem and vancomycin and infectious disease was consulted. Cultures were sent. Right lower extremity ultrasound was ordered and was performed on 20 January. It showed diffuse subcutaneous edema and skin thickening associate with cellulitis but no well-defined loculated drainable collection. Over the course of the next couple of days her erythema did start to recede. She did have a yellowish-brown drainage from her biopsy site which was dressed. ID recommended maintaining antibiotics as started and wait for cultures to dictate further treatment. Cultures remained no growth to date due to blood cultures. Based on your medical judgment, can you please specify the depth of the infection? [___]Infection following a procedure, unspecified [___]Infection following a procedure, superficial incisional surgical site (Subcutaneous abscess following a procedure; Stitch abscess following a procedure) [___]Infection following a procedure, deep incisional surgical site (Intra-muscular abscess following a procedure) [___]Infection following a procedure, organ and space surgical site (Intra-abdominal abscess following a procedure; Subphrenic abscess following a procedure) [___]Infection following a procedure, other surgical site [___]Other: In responding to this request, please exercise your independent professional judgement. The fact that a question is asked does not imply that any particular answer is desired or expected. Thank you! Beatriz [phone] - From: Lalo Boyd DO To: Beatriz Morton RN; Sent: 02/03/2024 07:44:32 EDT Subject: RE: Coding Query Caller Name: CAROLINA GUTIERREZ; Caller Number: Janee , M Infection following a procedure, superficial incisional surgical site (Subcutaneous abscess following a procedure; Stitch abscess following a procedure) [facility] Coding Query Coding Query - From: Beatriz Morton RN To: Lalo Boyd DO; Cc: Kendy Pritchard; Sent: 01/29/2024 12:19:00 EDT ! Subject: Coding Query Due Date/Time: 02/03/2024 12:18:00 EDT Caller Name: CAROLINA GUTIERREZ; Caller Number: Janee , Kenney Documentation in the medical record indicates this patient developed an infection after the following surgical procedure: skin biopsy on right clarke The following is also documented in the medical record: DC summary-On the medical service patient was admitted for sepsis manifested as leukocytosis, tachycardia and cellulitis. She was switched off the clindamycin to IV meropenem and vancomycin and infectious disease was consulted. Cultures were sent. Right lower extremity ultrasound was ordered and was performed on 20 January. It showed diffuse subcutaneous edema and skin thickening associate with cellulitis but no well-defined loculated drainable collection. Over the course of the next couple of days her erythema did start to recede. She did have a yellowish-brown drainage from her biopsy site which was dressed. ID recommended maintaining antibiotics as started and wait for cultures to dictate further treatment. Cultures remained no growth to date due to blood cultures. Based on your medical judgment, can you please specify the depth of the infection? [___]Sepsis following a procedure [___]Other: In responding to this request, please exercise your independent professional judgement. The fact that a question is asked does not imply that any particular answer is desired or expected. Thank you! Beatriz [phone] - From: Lalo Boyd DO To: Praveen BRIGHT, Beatriz; Sent: 02/03/2024 07:41:29 EDT Subject: RE: Coding Query Caller Name: CAROLINA GUTIERREZ; Caller Number: Janee , Kenney Sepsis following a procedure Normal [facility] Ambulatory Visit Summaryon 0 01-29-2024 Ambulatory Visit Summary Ambulatory Visit Summary CAROLINA GUTIERREZ :1960 Visit Date:01/29/2024 Ambulatory Visit Instructions Your Diagnosis Cellulitis, leg Chronically ill Non-smoker BMI 39.0-39.9,adult Your Care Team Attending Physician - Berry Canales Primary Care Physician - Berry Canales This Is Your Medications List albuterol (ProAir RespiClick 90 mcg/inh inhalation powder) albuterol-ipratropiu m (DuoNeb 2.5 mg-0.5 mg/3 mL Soln-Inh) celecoxib (celecoxib 200 mg Cap) denosumab (Prolia) fluticasone nasal (Flonase 0.05 mg/inh nasal spray) fluticasone-salmeter ol (Wixela Inhub 250 mcg-50 mcg inhalation powder) furosemide (Lasix 20 mg Tab) guaifenesin (Mucinex) levofloxacin (Levaquin 750 mg Tab) levothyroxine (levothyroxine 137 mcg (0.137 mg) Tab) montelukast (montelukast 10 mg Tab) ondansetron (Zofran 4 mg Tab) pantoprazole (Pantoprazole [address] Tab) potassium chloride (Potassium Chloride (Qzz-Uckr-Jym M20) 20 mEq oral tablet, extended release) semaglutide (Ozempic (1 mg dose)) tiotropium (Spiriva Respimat 1.25 mcg/inh inhalation aerosol) tramadol (traMADOL 50 mg Tab) valacyclovir (valacyclovir 1 g Tab) Procedures Performed EGD (esophagogastroduode noscopy) gastric outlet reduction (05/21/2022), Colonoscopy (05/09/2021), EGD - Esophagogastroduoden oscopy (05/09/2021), Cataract extraction, Cholecystectomy, Foot repair, Hysterectomy, Knee replacement, Shoulder, Tonsillectomy and adenoidectomy; age 12 or over. Discharge Vitals Temperature (Temporal Artery) 36.4 ?C Heart Rate (Peripheral) 90 Respiratory Rate 20 Blood Pressure 128/84 Height 149.0 cm Height 59 in Weight 87.3 kg Weight 192.06 lb BMI 39.32 What to do next Someone Will Contact You Regarding These Appointments [facility] External Ambulatory Referral, Patient choice/referral by family/friend, Allergy & Immunology, [facility] [employer], 01/29/24 14:31:00 EDT, Chronically ill Non-smoker BMI 39.0-39.9,adult Medications What How Much When Why Instructions Unchanged albuterol (ProAir RespiClick 90 mcg/ inh inhalation powder) 2 Puffs Inhalation Every 4 hours as needed for for wheezing or SOB Unchanged albuterol-ipratropiu m (DuoNeb 2.5 mg-0.5 mg/ 3 mL Soln-Inh) 3 Milliliter Inhalation 4 times a day Unchanged celecoxib (celecoxib 200 mg Cap) 1 Capsules By Mouth 2 times a day Unchanged denosumab (Prolia) 60 Milligram Subcutaneous Every 6 months Unchanged fluticasone nasal (Flonase 0.05 mg/ inh nasal spray) 2 Sprays Nasal Inhalation Every day Unchanged fluticasone-salmeter ol (Wixela Inhub 250 mcg-50 mcg inhalation powder) See instructions INHALE 1 PUFF BY MOUTH TWICE DAILY IN THE MORNING AND AT NIGHT Unchanged furosemide (Lasix 20 mg Tab) 1 Tablets By Mouth Every day Unchanged guaifenesin (Mucinex) 600 Milligram By Mouth Every day Unchanged levofloxacin (Levaquin 750 mg Tab) 1 Tablets By Mouth Every 24 hours Duration: 7 Days Unchanged levothyroxine (levothyroxine 137 mcg (0.137 mg) Tab) See instructions TAKE 1 TABLET BY MOUTH EVERY DAY Unchanged montelukast (montelukast 10 mg Tab) See instructions TAKE 1 TABLET BY MOUTH TWICE A DAY Unchanged ondansetron (Zofran 4 mg Tab) 1 Tablets By Mouth Every 6 hours Unchanged pantoprazole (Pantoprazole [address] Tab) 1 Tablets By Mouth Every day Duration: 90 Days Unchanged potassium chloride (Potassium Chloride (Hmv-Huyv-Hjm M20) 20 mEq oral tablet, extended release) 1 Tablets By Mouth 2 times a day Unchanged semaglutide (Ozempic (1 mg dose)) See instructions 2 mg SubCutaneous qWeek, ordered by another provider Unchanged tiotropium (Spiriva Respimat 1.25 mcg/ inh inhalation aerosol) 2 Inhalation Inhalation Every day Unchanged tramadol (traMADOL 50 mg Tab) 1 Tablets By Mouth Every 6 hours as needed for Pain Cellulitis Skin cancer Unchanged valacyclovir (valacyclovir 1 g Tab) 1 Tablets By Mouth Every 8 hours Shingles Duration: 7 Days Allergies Cefzil (Unknown) Eliquis (Unknown) Keflex (Hives) Pradaxa (Unknown) penicillin G benzathine (Hives) Problems Ongoing - Any problem that you are currently receiving treatment for. Adult BMI 38.0-38.9 kg/sq m Allergic rhinitis Anemia Annual physical exam Anti-citrullinated protein antibody detected Asthma Bilateral otitis media BMI 40.0-44.9, adult Bronchitis Cellulitis, leg Chronic peripheral venous hypertension with lower extremity complication Chronic sinusitis Chronically ill Colitis Cough Derangement of knee Diverticular disease DM2 (diabetes mellitus, type 2) Esophageal web Exposure to COVID-19 virus Fluid level behind tympanic membrane of both ears Gastroesophageal reflux disease without esophagitis Hemorrhoids History of colitis Hospital discharge follow-up Hx of pulmonary embolus Hypothyroidism Hypoxemia Left lower lobe pneumonia Low hemoglobin Lung nodules Moderate asthma without complication Morbid obesity with BMI of 4 (more content not included)... Normal [facility] Family Medicine Office/Clini c Noteon 01-29-2024 Family Medicine Office/Clinic Note Family Medicine Office/Clinic Note HPI Staff Carolina is a 63 year old female presenting with ER followup: Hospital: [facility] Visit date: 01/19-01/23 Symptoms the patient presented with: right leg cellulitis Current concerns: She is asking for blood clot shot ?? (to prevent) Echo done was done, vein US right leg was done EKG was done also [facility] 01/27/24 CC; Shingles on left side on back radiating to her abdominal area Note to go back to work? Last week and this week she has been off of work History of Present Illness pt presents today for ER follow up for cellulitis of right leg Review of Systems PHQ Score Initial Depression Screen Score: 0 SCORE Physical Exam Vitals & Measurements T: 36.4 ?C(Temporal Artery) HR: 90(Peripheral) RR: 20 BP: 128/84 SpO2: 98% HT: 59 in HT: 149.0 cm WT: 87.3 kg WT: 192.06 lb BMI: 39.32 General: alert, no acute distress ENMT: oral mucosa moist, no pharyngeal erythema or exudate Cardiovascular: regular rate and rhythm, normal peripheral perfusion Respiratory: Lungs CTA, respirations non labored Extremities: no deformity, no trauma Neurological: oriented x 4, LOC appropriate for age, CN II-XII intact, motor strength equal & normal bilaterally, speech normal Assessment/Plan 1. Cellulitis, leg (L03.119: Cellulitis of unspecified part of limb) pt presents today for follow up on cellulitis of right lower leg. she had a skin scrape by derm that became infected. ulcer is being treated by HH. area is healing and has healthy granulation tissue. pt to continue antibiotics. return to work next Saturday. RTC as needed 2. Chronically ill (R69: Illness, unspecified) pt has been chronically ill for year. struggles with respiratory failure, allergies, now has cellulitis, and shingles. pt would like referral to immunology/allergy specialists. will send referral for further work up. Ordered: [facility] External Ambulatory Referral 3. Shingles rash (B02.9: Zoster without complications) shingles rash on left abdomen and back is scabbed over no oozing noted 4. Non-smoker (Z78.9: Other specified health status) continue not smoking Ordered: [facility] External Ambulatory Referral 5. BMI 39.0-39.9,adult (Z68.39: Body mass index [BMI] 39.0-39.9, adult) bmi education given Ordered: [facility] External Ambulatory Referral Orders: tramadol, 50 mg = 1 tab(s), Oral, q12hr, PRN for pain, # 30 tab(s), Refills(s) 0, Pharmacy: [facility]/pharmacy #[id number], 149, cm, 01/20/24 22:07:00 EDT, Height/Length Dosing, 89.5, kg, 01/20/24 22:07:00 EDT, Weight Dosing Follow-up No qualifying data available Problem List/Past Medical History Ongoing Adult BMI 38.0-38.9 kg/sq m Allergic rhinitis Anemia Annual physical exam Anti-citrullinated protein antibody detected Asthma Bilateral otitis media BMI 40.0-44.9, adult Bronchitis Cellulitis, leg Chronic peripheral venous hypertension with lower extremity complication Chronic sinusitis Chronically ill Colitis Cough Derangement of knee Diverticular disease DM2 (diabetes mellitus, type 2) Esophageal web Exposure to COVID-19 virus Fluid level behind tympanic membrane of both ears Gastroesophageal reflux disease without esophagitis Hemorrhoids History of colitis Hospital discharge follow-up Hx of pulmonary embolus Hypothyroidism Hypoxemia Left lower lobe pneumonia Low hemoglobin Lung nodules Moderate asthma without complication Morbid obesity with BMI of 40.0-44.9, adult Nasal congestion Non-insulin dependent type 2 diabetes mellitus Obesity due to excess calories Oral thrush Pre-op exam Rheumatoid arthritis involving multiple sites with positive rheumatoid factor Right otitis media Shingles rash Shortness of breath Smoker Viral gastritis Weight loss, unintentional Wheezing Historical Arthritis Asthma Change in bowel habits COVID-19 Dysphagia Loose stools Nausea Procedure/Surgical History EGD (esophagogastroduode noscopy) gastric outlet reduction (05/21/2022), Colonoscopy (05/09/2021), EGD - Esophagogastroduoden oscopy (05/09/2021), Cataract extraction, Cholecystectomy, Foot repair, Hysterectomy, Knee replacement, Shoulder, Tonsillectomy and adenoidectomy; age 12 or over. Medications celecoxib 200 mg Cap, 200 mg= 1 cap(s), Oral, BID DuoNeb 2.5 mg-0.5 mg/3 mL Soln-Inh, 3 mL, Inhalation, QID Flonase 0.05 mg/inh nasal spray, 2 spray(s), Nasal, Daily Lasix 20 mg Tab, 20 mg= 1 tab(s), Oral, Daily Levaquin 750 mg Tab, 750 mg= 1 tab(s), Oral, q24hr levothyroxine 137 mcg (0.137 mg) Tab, See Instructions, 4 refills montelukast 10 mg Tab, See Instructions Mucinex, 600 mg, Oral, Daily Ozempic (1 mg dose), See Instructions Pantoprazole [address] Tab, 40 mg= 1 tab(s), Oral, Daily, 3 refills Potassium Chloride (Nnh-Xzho-Tcs M20) 20 mEq oral tablet, extended release, 20 mEq= 1 tab(s), Oral, BID ProAir RespiClick 90 mcg/inh inhalation powder, 2 puff(s), Inhalation, q4hr, PRN, 11 refills Prolia, 60 (more content not included)... Normal [facility] Comment on above: Result Comment: Elec tronically Signed By: Berry Canales\.br\Date and Time Signed: 01/29/24 14:41 EDT Provider Letteron 01-29-2024 Provider Letter Provider Letter January 29, 2024 CAROLINA GUTIERREZ [address] [place] [id number] : 1960 To Whom It May Concern, Please excuse above patient from work, due to medical, if you have any questions please call my office Date of Illness: From: _01-13-24 To: _02-04-24 May Return to Work On: 02-05-24 Restrictions: _ Comments: _ Sincerely, [place] [address] [facility] Ambulatory Visit Summaryon 0 01-27-2024 Ambulatory Visit Summary Ambulatory Visit Summary CAROLINA GUTIERREZ :1960 Visit Date:01/27/2024 Ambulatory Visit Instructions Your Diagnosis Shingles Your Care Team Attending Physician - Albaro Baltazar PA-C Primary Care Physician - Berry Canales This Is Your Medications List albuterol (ProAir RespiClick 90 mcg/inh inhalation powder) albuterol-ipratropiu m (DuoNeb 2.5 mg-0.5 mg/3 mL Soln-Inh) celecoxib (celecoxib 200 mg Cap) denosumab (Prolia) fluticasone nasal (Flonase 0.05 mg/inh nasal spray) fluticasone-salmeter ol (Wixela Inhub 250 mcg-50 mcg inhalation powder) furosemide (Lasix 20 mg Tab) guaifenesin (Mucinex) levofloxacin (Levaquin 750 mg Tab) levothyroxine (levothyroxine 137 mcg (0.137 mg) Tab) montelukast (montelukast 10 mg Tab) ondansetron (Zofran 4 mg Tab) pantoprazole (Pantoprazole [address] Tab) potassium chloride (Potassium Chloride (Klm-Okbg-Ayk M20) 20 mEq oral tablet, extended release) semaglutide (Ozempic (1 mg dose)) tiotropium (Spiriva Respimat 1.25 mcg/inh inhalation aerosol) tramadol (traMADOL 50 mg Tab) tramadol (traMADOL 50 mg Tab) valacyclovir (valacyclovir 1 g Tab) Procedures Performed EGD (esophagogastroduode noscopy) gastric outlet reduction (05/21/2022), Colonoscopy (05/09/2021), EGD - Esophagogastroduoden oscopy (05/09/2021), Cataract extraction, Cholecystectomy, Foot repair, Hysterectomy, Knee replacement, Shoulder, Tonsillectomy and adenoidectomy; age 12 or over. Discharge Vitals Temperature (Tympanic) 36.8 ?C Heart Rate (Peripheral) 112 Respiratory Rate 18 Blood Pressure 122/82 Height 149 cm Height 59 in Weight 87.3 kg Weight 192.06 lb BMI 39.32 What to do next Scheduled Follow-Up Appointments Saturday 2:00 PM EDT With: Berry Canales Where: [place] [phone]- Medications What How Much When Why Instructions New valacyclovir (valacyclovir 1 g Tab) 1 Tablets By Mouth Every 8 hours Shingles Duration: 7 Days Pickup at [facility]/pharmacy #[id number] Unchanged albuterol (ProAir RespiClick 90 mcg/ inh inhalation powder) 2 Puffs Inhalation Every 4 hours as needed for for wheezing or SOB Unchanged albuterol-ipratropiu m (DuoNeb 2.5 mg-0.5 mg/ 3 mL Soln-Inh) 3 Milliliter Inhalation 4 times a day Unchanged celecoxib (celecoxib 200 mg Cap) 1 Capsules By Mouth 2 times a day Unchanged denosumab (Prolia) 60 Milligram Subcutaneous Every 6 months Unchanged fluticasone nasal (Flonase 0.05 mg/ inh nasal spray) 2 Sprays Nasal Inhalation Every day Unchanged fluticasone-salmeter ol (Wixela Inhub 250 mcg-50 mcg inhalation powder) See instructions INHALE 1 PUFF BY MOUTH TWICE DAILY IN THE MORNING AND AT NIGHT Unchanged furosemide (Lasix 20 mg Tab) 1 Tablets By Mouth Every day Unchanged guaifenesin (Mucinex) 600 Milligram By Mouth Every day Unchanged levofloxacin (Levaquin 750 mg Tab) 1 Tablets By Mouth Every 24 hours Duration: 7 Days Unchanged levothyroxine (levothyroxine 137 mcg (0.137 mg) Tab) See instructions TAKE 1 TABLET BY MOUTH EVERY DAY Unchanged montelukast (montelukast 10 mg Tab) See instructions TAKE 1 TABLET BY MOUTH TWICE A DAY Unchanged ondansetron (Zofran 4 mg Tab) 1 Tablets By Mouth Every 6 hours Unchanged pantoprazole (Pantoprazole [address] Tab) 1 Tablets By Mouth Every day Duration: 90 Days Unchanged potassium chloride (Potassium Chloride (Jjq-Bdxq-Kbz M20) 20 mEq oral tablet, extended release) 1 Tablets By Mouth 2 times a day Unchanged semaglutide (Ozempic (1 mg dose)) See instructions 2 mg SubCutaneous qWeek, ordered by another provider Unchanged tiotropium (Spiriva Respimat 1.25 mcg/ inh inhalation aerosol) 2 Inhalation Inhalation Every day Unchanged tramadol (traMADOL 50 mg Tab) 1 Tablets By Mouth Every 12 hours as needed for for pain Unchanged tramadol (traMADOL 50 mg Tab) 1 Tablets By Mouth Every 6 hours as needed for Pain Cellulitis Skin cancer Pharmacy Information [facility]/pharmacy #[id number]: [address], [place] [id number] [phone] Allergies Cefzil (Unknown) Eliquis (Unknown) Keflex (Hives) Pradaxa (Unknown) penicillin G benzathine (Hives) Problems Ongoing - Any problem that you are currently receiving treatment for. Adult BMI 38.0-38.9 kg/sq m Allergic rhinitis Anemia Annual physical exam Anti-citrullinated protein antibody detected Asthma Bilateral otitis media BMI 40.0-44.9, adult Bronchitis Chronic peripheral venous hypertension with lower extremity complication Chronic sinusitis Colitis Cough Derangement of knee Diverticular disease DM2 (diabetes mellitus, type 2) Esophageal web Exposure to COVID-19 virus Fluid level behind tympanic membrane of both ears Gastroesophageal reflux disease without esophagitis Hemorrhoids History of colitis Hospital discharge follow-up Hx of pulmonary embolus Hypothyroidism Hypoxemia Left lower lobe p (more content not included)... Normal [facility] Family Medicine Office/Clini c Noteon 01-27-2024 Family Medicine Office/Clinic Note Family Medicine Office/Clinic Note Chief Complaint Possible shingles HPI Staff 63 year old female present for rash on left side of abdomen and back. Pt states that the rash medina, itches. Onset: Saturday OTC: Regino History of Present Illness I have reviewed and verified the staff HPI to be accurate for this encounter. Portions of this record have been created with voice recognition software. Occasional wrong-word or ?[id number]-[id number]? substitutions may have occurred due to the inherent limitations of voice recognition software. 63 yo female with hx of anemia, bronchitis, colitis, pneumonia, asthma, presents today with cc of rash. Patient was recently discharged from the hospital on January 23 following admissions which included antibiotics to cover a left lower lobe pneumonia, right lower extremity cellulitis and colitis. Patient states she has home health nursing and when she had her first visit or contact today. She states while she was in the hospital she was having all kinds of left-sided lower back and sometimes anterior abdominal discomfort in which they could not figure out what that was. States that this pain has been intermittent x 2 weeks. States however yesterday on Saturday she noticed this rash that developed over the lower back states she noticed that there first which was a round red cluster of what appeared to be blisters. States that it wraps around the left side to the left mid to lower abdomen in which she states the rash medina and itches. Is concerned she may have shingles. She has tried a topical salve or ointment without much relief. Patient has follow-up appointment with her primary care provider on January 28. She has no other concerns at this time. Review of Systems PHQ Score Initial Depression Screen Score: 0 SCORE ROS negative unless otherwise stated in HPI. Physical Exam Vitals & Measurements T: 36.8 ?C(Tympanic) HR: 112(Peripheral) RR: 18 BP: 122/82 SpO2: 96% HT: 59 in HT: 149 cm WT: 87.3 kg WT: 192.06 lb BMI: 39.32 General: Very pleasant obese female, no acute distress present with today Eyes: not assessed Ears: not assessed Nose: not addressed Mouth: not assessed Neck: not assessed Lungs: Lung sounds are clear bilaterally. No wheezing rhonchi or crackles on exam. Cardio: S1, S2, regular rhythm. No murmurs gallops or rubs. Abdomen: not assessed Musculoskeletal: not assessed Extremity: not assessed Neurologic: not assessed Skin: Patient has what appears to be a textbook shingles like rash with small clusters of blisters which started at the left side of the lower back region and wraparound the left flank to left lower abdominal region. This rash is tender and painful per patient states it is also pruritic. This does not appear to be a contact dermatitis there is no hives or urticarial type rash. No weeping or seeping lesions. No surrounding erythema or concern for cellulitis or infection. Mental Status: Alert and oriented x3. Normal mood and affect Assessment/Plan I spoke with patient and in regards to treatment for shingles discussed Valtrex 1 g 3 times daily x 7 days duration which patient is in agreement with. She is currently taking tramadol and Levaquin for treatment of right lower extremity cellulitis in which she has outpatient follow-up appoint with her primary care provider on Saturday. Patient is to keep that follow-up appointment and to discuss the shingles like rash so that the primary care provider may reevaluate this at that time she will also discuss pain control if the tramadol is not helping enough with pain and discomfort. Patient and both agree and understand plan of care may otherwise return if needed. 1. Shingles (B02.9: Zoster without complications) Exam is consistent with shingles. Discussed viral nature and typical duration. Will treat with antiviral valcyclovir. Finish course. Discussed keep blisters covered/avoid very young or unvaccinated individuals as fluid from blisters can cause chicken pox in that population. May use PRN tylenol/ibuprofen, otc topicals with lidocaine or similar (such as aloe with lidocaine) for pain. Follow up with PCP if not improving over next 5-7 days or if continuing nerve pain after rash resolves. Patient verbalized understanding of tx plan. Ordered: valacyclovir, 1 gm = 1 tab(s), Oral, q8hr, X 7 day(s), # 21 tab(s), Refills(s) 0, [facility]acy[id number], 149, cm, 01/27/24 15:18:00 EDT, Height/Length Dosing, 87.3, kg, 01/27/24 15:18:00 EDT, Weight Dosing Follow-up With When Contact Information Berry Canales, FAM, MED Additional Instructions: Patient Education Shingles Problem List/Past Medical History Ongoing Adult BMI 38.0-38.9 kg/sq m Allergic rhinitis Anemia Annual physical exam Anti-citrullinated protein antibody detected Asthma Bilateral otitis media BMI 40.0-44.9, adult Bronchitis Chronic peripheral venous hypertension with lower extremity complication Chronic sinusiti (more content not included)... Normal [facility] Comment on above: Result Comment: Elec tronically Signed By: Giovanny SAMANO, Albaro Iverson\.br\Date and Time Signed: 01/27/24 16:01 EDT [facility] 01-27-20 [facility] Case Information Case Priority: None Programs: -- Referral Source: Tile Professional Referral Reason: Care coordination Case Type: Transition Care Management Risk Score: -- Case Status: Enrolled (January 27, 2024) Date Assigned: January 27, 2024 Assigned By: Pop Alvarez Date Enrolled: January 27, 2024 Assigned Primary Personnel: Pop Alvarez Assigned Secondary Personnel: -- Case Physician: Berry Canales Problems Ongoing Adult BMI 38.0-38.9 kg/sq m Allergic rhinitis Anemia Annual physical exam Anti-citrullinated protein antibody detected Asthma Bilateral otitis media BMI 40.0-44.9, adult Bronchitis Chronic peripheral venous hypertension with lower extremity complication Chronic sinusitis Colitis Cough Derangement of knee Diverticular disease DM2 (diabetes mellitus, type 2) Esophageal web Exposure to COVID-19 virus Fluid level behind tympanic membrane of both ears Gastroesophageal reflux disease without esophagitis Hemorrhoids History of colitis Hospital discharge follow-up Hx of pulmonary embolus Hypothyroidism Hypoxemia Left lower lobe pneumonia Low hemoglobin Lung nodules Moderate asthma without complication Morbid obesity with BMI of 40.0-44.9, adult Nasal congestion Non-insulin dependent type 2 diabetes mellitus Obesity due to excess calories Oral thrush Pre-op exam Rheumatoid arthritis involving multiple sites with positive rheumatoid factor Right otitis media Shortness of breath Smoker Viral gastritis Weight loss, unintentional Wheezing Historical Arthritis Asthma Change in bowel habits COVID-19 Dysphagia Loose stools Nausea Procedure/Surgical History EGD (esophagogastroduode noscopy) gastric outlet reduction (05/21/2022), Colonoscopy (05/09/2021), EGD - Esophagogastroduoden oscopy (05/09/2021), Cataract extraction, Cholecystectomy, Foot repair, Hysterectomy, Knee replacement, Shoulder, Tonsillectomy and adenoidectomy; age 12 or over. Home Medications celecoxib 200 mg Cap, 200 mg= 1 cap(s), Oral, BID DuoNeb 2.5 mg-0.5 mg/3 mL Soln-Inh, 3 mL, Inhalation, QID Flonase 0.05 mg/inh nasal spray, 2 spray(s), Nasal, Daily Lasix 20 mg Tab, 20 mg= 1 tab(s), Oral, Daily Levaquin 750 mg Tab, 750 mg= 1 tab(s), Oral, q24hr levothyroxine 137 mcg (0.137 mg) Tab, See Instructions, 4 refills montelukast 10 mg Tab, See Instructions Mucinex, 600 mg, Oral, Daily Ozempic (1 mg dose), See Instructions Pantoprazole [address] Tab, 40 mg= 1 tab(s), Oral, Daily, 3 refills Potassium Chloride (Fui-Asvk-Fgy M20) 20 mEq oral tablet, extended release, 20 mEq= 1 tab(s), Oral, BID ProAir RespiClick 90 mcg/inh inhalation powder, 2 puff(s), Inhalation, q4hr, PRN, 11 refills Prolia, 60 mg, SubCutaneous, q6mo Spiriva Respimat 1.25 mcg/inh inhalation aerosol, 2 inh, Inhalation, Daily traMADOL 50 mg Tab, 50 mg= 1 tab(s), Oral, q6hr, PRN Wixela Inhub 250 mcg-50 mcg inhalation powder, See Instructions Zofran 4 mg Tab, 4 mg= 1 tab(s), Oral, q6hr, 1 refills Allergies Cefzil (Unknown) Eliquis (Unknown) Keflex (Hives) Pradaxa (Unknown) penicillin G benzathine (Hives) Social History Alcohol - Low Risk, 01/08/2024 Current, Beer, Wine, 1-2 times per year, 05/22/2022 Employment/School - Low Risk, 05/22/2022 Exercise - Does not exercise, 05/22/2022 Home/Environment - Low Risk, 05/22/2022 Nutrition/Health - Low Risk, 05/22/2022 Sexual - No Risk, 05/22/2022 Substance Abuse - Denies Substance Abuse, 01/20/2024 Current, Marijuana, 1-2 times per year, 01/20/2024 Tobacco - Denies Tobacco Use, 01/20/2024 Never (less than 100 in lifetime) Tobacco Use:. Current vaping or e-cigarette use Smokeless Tobacco Use:. Vaping, Household tobacco concerns: No., 01/20/2024 Family History Cancer: Mother. Diabetes mellitus type 2: Sister. Stroke: Father. Screenings and Assessments 01/27/24 11:19:00 Result Name Value Comment Phone Call Monitoring Consent Agreed to continue call Phone Verification Patient Information Full name, street address and date of verified CM Program Enrollment Provides verbal consent for enrollment Goals and Interventions Care Plan Progress Note Admit Date: 01/20/24 Date of Discharge: 01/24/24 Follow-up appointment scheduled? yes, with [facility] 01/29/24 at 1400 Did you understand your discharge instructions? yes Are you able to follow them? yes Did you receive new medications? yes, tramadol 50 mg q6hr PRN pain, Levaquin 750 mg q24hr x 7 days Have you filled the Rx's? yes Are you taking them as prescribed? yes Are you having difficulty eating or swallowing your pills? no Are you having any stomach upset, diarrhea or constipation? no How are you sleeping? fine Are you having any pain? yes, right leg pain 01/07, left sided pain 'belly button outward' 01/07 Do you have everything you need at home to care for yourself? (more content not included)... Normal [facility] General Message Officeon General Message Office General Message Office --- --- --- --- --- --- --- --- --- From: Sharron DirectInbox To: CAROLINA GUTIERREZ Sent: 01/25/24 02:30:27 AM EDT Subject: Discharge Summary Ready to View A summary regarding your recent visit is available in the Documents section of your health record. Normal [facility] CHEMISTRYOrdered By: Lab ROP User on 01-24-2024 Glucose [Mass/Vol] 108 mg/dL High 55 - 99 mg/dL FT C POC Subsection Comment on above: Result Comment: Sugar WALKER POC Device SN [id number] 1 Invalid Interpretation Code [facility] POC Subsection POC User ID [id number] 1 Invalid Interpretation Code [facility] POC Subsection POC Username ANNA TOM Invalid Interpretation Code [facility] POC Subsection CHEMISTRYOrdered By: Clair Thrasher on 01-24-2024 Anion gap [Moles/Vol] 10 mmol/L Normal 6 - 16 mEq/L Remisol Chem Calcium [Mass/Vol] 7.6 mg/dL Low 8.9 - 11.1 mg/dL Remisol Chem Chloride [Moles/Vol] 105 mmol/L Normal 101 - 111 mmol/ L Remisol Chem CO2 [Moles/Vol] 28 mmol/L Normal 21 - 31 mmol/L Remis ol Chem Creatinine [Mass/Vol] 0.3 mg/dL Low 0.5 - 1.3 mg/dL Remisol Chem eGFR 118 mL/min/1.73 m2 Normal >=59mL/mi n/1.73 m2 Remisol Chem Glucose [Mass/Vol] 122 mg/dL Normal 55 - 199 mg/dL Re misol Chem Potassium [Moles/Vol] 3.1 mmol/L Low 3.5 - 5.3 mmol/L Remisol Chem Sodium [Moles/Vol] 140 mmol/L Normal 135 - 145 mmol/L Remisol Chem Urea nitrogen [Mass/Vol] 4 mg/dL Low 5 - 21 mg/dL Remisol Chem Urea nitrogen/Creatinine [Mass ratio] 13 mg/mg Normal 10 - 20 Remisol Chem CHEMISTRYOrdered By: SYSTEM SYSTEM on 01-24-2024 Vanco Tr 7 microgram/mL Low 10 - 20 mcg/mL Remiso l Chem Capillary Glucose POCon 12-30 Glucose [Mass/Vol] 108 mg/dL High 55-99 [facility] Comment on above: Result Comment: Sugar WALKER Performed By: #### [id number] ####[facility] [address] [place] [address] HEMATOLOGYOrdered By: SYSTEM SYSTEM on 01-24-2024 Basophils/100 WBC (Bld) 0.2 % Normal 0.0 - 2.0 % Remisol Heme Basophils/Leukocytes Auto (Bld) [Pure # fraction] 0.0 E9/L Normal 0.0 - 0.2 E9/L Remisol Heme Eosinophils (Bld) [#/Vol] 0.1 E9/L Normal 0.0 - 0.5 E9/L Remisol Heme Eosinophils/100 WBC (Bld) 0.7 % Normal 0.0 - 8.0 % Remisol Heme Erythrocyte distribution width (RBC) [Ratio] 17.1 % High 10.9 - 14.2 % Remisol Heme Hematocrit (Bld) [Volume fraction] 30.8 % Low 34.0 - 46.0 % Remisol Heme Hemoglobin (Bld) [Mass/Vol] 10.5 g/dL Low 12.0 - 16.0 gm/dL Remisol Heme Lymphocytes (Bld) [#/Vol] 0.6 E9/L Low 1.0 - 4.0 E9/L Remisol Heme Lymphocytes/100 WBC (Bld) 7.4 % Low 14.0 - 50.0 % Remisol Heme MCH (RBC) [Entitic mass] 29.9 pg Normal 27.0 - 34.0 pg Remisol Heme MCHC (RBC) [Mass/Vol] 34.0 g/dL Normal 31.4 - 36.0 gm/dL Remisol Heme MCV (RBC) [Entitic vol] 87.9 fL Normal 80.0 - 100.0 fL Remisol Heme Monocytes (Bld) [#/Vol] 0.6 E9/L Normal 0.2 - 1.0 E9/L Remisol Heme Monocytes/100 WBC (Bld) 7.5 % Normal 4.0 - 14.0 % Remisol Heme Neutrophils (Bld) [#/Vol] 6.6 E9/L Normal 2.0 - 7.5 E9/L Remisol Heme Neutrophils/100 WBC (Bld) 84.2 % High 36.0 - 75.0 % Remisol Heme Platelet 192.0 E9/L Normal 150.0 - 500.0 E9/L Remisol Heme Platelet mean volume (Bld) [Entitic vol] 7.2 fL Normal 6.4 - 10.8 fL Remisol Heme RBC (Bld) [#/Vol] 3.5 E12/L Low 4.3 - 5.9 E12/L Re misol Heme WBC corrected for nucl RBC Auto (Bld) [#/Vol] 7.9 E9/L Normal 4.0 - 11.0 E9/L Remisol Heme Inpatient Clinical Summaryon 01-24-2024 Inpatient Clinical Summary Inpatient Clinical Summary [place] [id number] Clinical Summary Person Information: Name: CAROLINA GUTIERREZ Age: 63 Years : 1960 Sex: Female PCP: Berry Canales Marital Status: Phone: [phone] Race: White Ethnicity: Non- or Language: Samoan Visit Id: Visit Reason: Chills; Nausea; Lower leg pain-swelling; CHILLS,NAUSEA, CELLULIST ON RT LEG Speciality: Acuity: Enc Type: Inpatient Med Service: Medical Arrival: 01/20/2024 21:45:43 Discharge: Dispo Type: Admitted as IP to this Hosp Address: [address] [place] [id number] Provider Notes: Diagnosis: 1:Sepsis; 2:Cellulitis; 3:Leukocytosis; 4:Asthma; 5:History of colitis; 6:DM2 (diabetes mellitus, type 2); 7:Gastroesophageal reflux disease without esophagitis; 8:Hypothyroidism; 9:Obesity; 10:Skin cancer; 11:On deep vein thrombosis (DVT) prophylaxis; Sinus tachycardia Problems Active DM2 (diabetes mellitus, type 2) History of colitis Asthma Smoker Hospital discharge follow-up Adult BMI 38.0-38.9 kg/sq m Left lower lobe pneumonia 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) Lung nodules Bronchitis Morbid obesity with BMI of 40.0-44.9, adult Fluid level behind tympanic membrane of both ears Right otitis media Low hemoglobin Pre-op exam Bilateral otitis media Wheezing Shortness of breath Nasal congestion Cough Exposure to COVID-19 virus Gastroesophageal reflux disease without esophagitis Hypothyroidism Viral gastritis Colitis Hx of pulmonary embolus Annual physical exam BMI 40.0-44.9, adult Weight loss, unintentional Allergic rhinitis Non-insulin dependent type 2 diabetes mellitus Hypoxemia Diverticular disease Derangement of knee Chronic peripheral venous hypertension with lower extremity complication Chronic sinusitis Rheumatoid arthritis involving multiple sites with positive rheumatoid factor Anemia Hemorrhoids Esophageal web Obesity due to excess calories Oral thrush Moderate asthma without complication Smoking Status: Never Smoker Functional Status: Sensory Deficits: History of Falls: Mobility Assistance Prior to Admission: ADLs: Independent Current Level of Assistance for Self-Care/Mobility: Cognitive Status: Oriented x 3 Allergies penicillin G benzathine (Hives) Keflex (Hives) Pradaxa (Unknown) Cefzil (Unknown) Eliquis (Unknown) Measurements: Height: 149.86 cm Weight: 92.2 kg Blood Pressure: 134 mmHg / 71 mmHg BMI: 40.65 kg/m2 Procedures No Procedures Documented Immunizations No Immunizations Documented This Visit Final Med List: albuterol (ProAir RespiClick 90 mcg/inh inhalation powder) 2 Puffs Inhalation every 4 hours as needed for wheezing or SOB. Refills: 11. albuterol-ipratropiu m (DuoNeb 2.5 mg-0.5 mg/3 mL Soln-Inh) 3 Milliliter Nebulized inhalation (aerosol) 6 times a day. Refills: 1. albuterol-ipratropiu m (DuoNeb 2.5 mg-0.5 mg/3 mL Soln-Inh) 3 Milliliter Inhalation 4 times a day. Refills: 0. celecoxib (celecoxib 200 mg Cap) 1 Capsules By Mouth 2 times a day. denosumab (Prolia) 60 Milligram Subcutaneous every 6 months. dextromethorphan-pro methazine (dextromethorphan-pr omethazine 15 mg-6.25 mg/5 mL Oral Syrup 5 mL) 5 Milliliter By Mouth every 6 hours as needed for cough. Refills: 0. fluticasone nasal (Flonase 0.05 mg/inh nasal spray) 2 Sprays Nasal Inhalation every day. fluticasone-salmeter ol (Wixela Inhub 250 mcg-50 mcg inhalation powder) INHALE 1 PUFF BY MOUTH TWICE DAILY IN THE MORNING AND AT NIGHT. Refills: 1. furosemide (Lasix 20 mg Tab) 1 Tablets By Mouth every day. Refills: 0. guaifenesin (Mucinex 600 mg Tab-ER) 2 Tablets By Mouth 2 times a day. Refills: 0. homatropine-hydrocod one (homatropine-hydroco done 1.5 mg-5 mg/5 mL oral syrup) 5 Milliliter By Mouth every 4 hours as needed for cough. Refills: 0. levofloxacin (Levaquin 750 mg Tab) 1 Tablets By Mouth every 24 hours for 7 Days. Refills: 0. levothyroxine (levothyroxine 137 mcg (0.137 mg) Tab) TAKE 1 TABLET BY MOUTH EVERY DAY. Refills: 4. montelukast (montelukast 10 mg Tab) TAKE 1 TABLET BY MOUTH TWICE A DAY. Refills: 1. ondansetron (Zofran 4 mg Tab) 1 Tablets By Mouth every 6 hours. Refills: 1. pantoprazole (Pantoprazole [address] Tab) 1 Tablets By Mouth every day for 90 Days. Refills: 3. potassium chloride (Potassium Chloride (Cja-Mdqx-Eeh M20) 20 mEq oral tablet, extended release) 1 Tablets By Mouth 2 times a day. Refills: 0. predniSONE (predniSONE 20 mg Tab) 1 Tablets By Mouth As Directed. Take two tabs for 4 days, then one and half tabs for 4 days, then one tab for 4 days then half tab for 4 days then stop. Refills: 0. semaglutide (Ozempic (1 mg dose)) 2 mg SubCutaneous qWeek, ordered by another provider. tiotropium (Spiriva Respimat 1.25 mcg/inh inhalati (more content not included)... Normal [facility] Inpatient Patient Summaryon 01-24-2024 Inpatient Patient Summary Inpatient Patient Summary [place] [id number] Patient Discharge Instructions PERSON INFORMATION Name: CAROLINA GUTIERREZ Date of : 1960 Current Date: 01/24/2024 12:13:56 PHYSICIANS Admitting Physician: Halle HOUSTON DO Primary Care Physician: Berry Canales PCP Comment: Discharge Diagnosis: 1:Sepsis; 2:Cellulitis; 3:Leukocytosis; 4:Asthma; 5:History of colitis; 6:DM2 (diabetes mellitus, type 2); 7:Gastroesophageal reflux disease without esophagitis; 8:Hypothyroidism; 9:Obesity; 10:Skin cancer; 11:On deep vein thrombosis (DVT) prophylaxis; Sinus tachycardia Condition at Discharge: Stable CAROLINA GUTIERREZ has been given the following list of follow-up instructions, prescriptions, and patient education materials: PATIENT FOLLOW-UP INFORMATION Diet: Calorie Controlled- 1800 Calorie Diet Discharge Activity: Ambulate as tolerated Discharge Restrictions: No restrictions Wound Care Instructions: Remove Your Dressing In Days Call Your Doctor For: IF UNABLE TO CONTACT YOUR PHYSICIAN AND YOU FEEL IT IS AN EMERGENCY, GO TO THE NEAREST EMERGENCY ROOM OR CALL 911 Home Treatment: Devices/Equipment: Nebulizer Special Services: Additional Instructions: Primary Care Physician to provide the following pending test results: Follow up: With: Address: When: [facility] Comments: Keep scheduled appointment In the event that this physician does not participate in your insurance network, please consult with your insurance company to find a nearby participating provider. Comment: Shaunna CAROLINA GUTIERREZ, have received the attached patient education materials/instructio ns and have verbalized understanding: Patient Signature Date Clinican/Nurse Signature Date HERE ARE THE MEDICATION CHANGES THAT OCCURRED DURING YOUR HOSPITAL STAY New Medications [id number], [address], [place] [id number], [phone] tramadol (traMADOL 50 mg Tab) 1 Tablets By Mouth every 6 hours as needed Pain. Refills: 0. Last Dose: Next Dose: Medications to Continue Taking That Have Changed [id number], [address], [place] [id number], [phone] START: levofloxacin (Levaquin 750 mg Tab) 1 Tablets By Mouth every 24 hours for 7 Days. Refills: 0. Last Dose: Next Dose: STOP: levofloxacin (Levaquin) every 24 hours. Medications to Continue with No Changes Other Medications albuterol (ProAir RespiClick 90 mcg/inh inhalation powder) 2 Puffs Inhalation every 4 hours as needed for wheezing or SOB. Refills: 11. Last Dose: Next Dose: albuterol-ipratropiu m (DuoNeb 2.5 mg-0.5 mg/3 mL Soln-Inh) 3 Milliliter Nebulized inhalation (aerosol) 6 times a day. Refills: 1. Last Dose: Next Dose: albuterol-ipratropiu m (DuoNeb 2.5 mg-0.5 mg/3 mL Soln-Inh) 3 Milliliter Inhalation 4 times a day. Refills: 0. Last Dose: Next Dose: celecoxib (celecoxib 200 mg Cap) 1 Capsules By Mouth 2 times a day. Last Dose: Next Dose: denosumab (Prolia) 60 Milligram Subcutaneous every 6 months. Last Dose: Next Dose: dextromethorphan-pro methazine (dextromethorphan-pr omethazine 15 mg-6.25 mg/5 mL Oral Syrup 5 mL) 5 Milliliter By Mouth every 6 hours as needed for cough. Refills: 0. Last Dose: Next Dose: fluticasone nasal (Flonase 0.05 mg/inh nasal spray) 2 Sprays Nasal Inhalation every day. Last Dose: Next Dose: fluticasone-salmeter ol (Wixela Inhub 250 mcg-50 mcg inhalation powder) INHALE 1 PUFF BY MOUTH TWICE DAILY IN THE MORNING AND AT NIGHT. Refills: 1. Last Dose: Next Dose: furosemide (Lasix 20 mg Tab) 1 Tablets By Mouth every day. Refills: 0. Last Dose: Next Dose: guaifenesin (Mucinex 600 mg Tab-ER) 2 Tablets By Mouth 2 times a day. Refills: 0. Last Dose: Next Dose: homatropine-hydrocod one (homatropine-hydroco done 1.5 mg-5 mg/5 mL oral syrup) 5 Milliliter By Mouth every 4 hours as needed for cough. Refills: 0. Last Dose: Next Dose: levothyroxine (levothyroxine 137 mcg (0.137 mg) Tab) TAKE 1 TABLET BY MOUTH EVERY DAY. Refills: 4. Last Dose: Next Dose: montelukast (montelukast 10 mg Tab) TAKE 1 TABLET BY MOUTH TWICE A DAY. Refills: 1. Last Dose: Next Dose: ondansetron (Zofran 4 mg Tab) 1 Tablets By (more content not included)... Normal [facility] Inpatient Patient Summary Inpatient Patient Summary CAROLINA GUTIERREZ :1960 Visit Date:01/20/2024 Inpatient Discharge Instructions Your Care Team Admitting Physician - Halle HOUSTON DO Consulting Physician - Kayleen Vee, Louis Marcial MD, [facility]. Reason for Your Visit I have cellulitis in my R lower leg, chills and I am nauseaous. Your Diagnosis Sepsis Cellulitis Leukocytosis Asthma History of colitis DM2 (diabetes mellitus, type 2) Gastroesophageal reflux disease without esophagitis Hypothyroidism Obesity Skin cancer On deep vein thrombosis (DVT) prophylaxis Chills Lower leg pain-swelling Nausea Sinus tachycardia Tests Performed US Extremity Non-Vascular Limited Right XR Chest Single View This Is Your Medications List albuterol (ProAir RespiClick 90 mcg/inh inhalation powder) albuterol-ipratropiu m (DuoNeb 2.5 mg-0.5 mg/3 mL Soln-Inh) albuterol-ipratropiu m (DuoNeb 2.5 mg-0.5 mg/3 mL Soln-Inh) celecoxib (celecoxib 200 mg Cap) denosumab (Prolia) dextromethorphan-pro methazine (dextromethorphan-pr omethazine 15 mg-6.25 mg/5 mL Oral Syrup 5 mL) fluticasone nasal (Flonase 0.05 mg/inh nasal spray) fluticasone-salmeter ol (Wixela Inhub 250 mcg-50 mcg inhalation powder) furosemide (Lasix 20 mg Tab) guaifenesin (Mucinex 600 mg Tab-ER) homatropine-hydrocod one (homatropine-hydroco done 1.5 mg-5 mg/5 mL oral syrup) levofloxacin (Levaquin 750 mg Tab) levothyroxine (levothyroxine 137 mcg (0.137 mg) Tab) montelukast (montelukast 10 mg Tab) ondansetron (Zofran 4 mg Tab) pantoprazole (Pantoprazole [address] Tab) potassium chloride (Potassium Chloride (Xac-Wjkv-Hth M20) 20 mEq oral tablet, extended release) predniSONE (predniSONE 20 mg Tab) semaglutide (Ozempic (1 mg dose)) tiotropium (Spiriva Respimat 1.25 mcg/inh inhalation aerosol) upadacitinib (Rinvoq 15 mg oral tablet, extended release) Procedure History EGD (esophagogastroduode noscopy) gastric outlet reduction (05/21/2022), Colonoscopy (05/09/2021), EGD - Esophagogastroduoden oscopy (05/09/2021), Cataract extraction, Cholecystectomy, Foot repair, Hysterectomy, Knee replacement, Shoulder, Tonsillectomy and adenoidectomy; age 12 or over. Discharge Vitals Temperature (Axillary) 36.4 ?C Heart Rate (Monitored) 85 Respiratory Rate 16 Blood Pressure 134/71 Weight 92.2 kg What to do next Instructions From Your Doctor Event Name Event Result Discharge Activity Ambulate as tolerated Discharge Restrictions No restrictions Discharge Diet(s) Calorie Controlled- 1800 Calorie Diet New Follow Up Appointments after Discharge Follow Up with [facility] When: Comments: Keep scheduled appointment Medications What How Much When Why Instructions Next Dose Changed levofloxacin (Levaquin 750 mg Tab) 1 Tablets By Mouth Every 24 hours Duration: 7 Days Pickup at [facility] #[id number] 01/24 AM Unchanged albuterol (ProAir RespiClick 90 mcg/ inh inhalation powder) 2 Puffs Inhalation Every 4 hours as needed for for wheezing or SOB as prescribed Unchanged albuterol-ipratropiu m (DuoNeb 2.5 mg-0.5 mg/ 3 mL Soln-Inh) 3 Milliliter Nebulized inhalation (aerosol) 6 times a day as prescribed Unchanged albuterol-ipratropiu m (DuoNeb 2.5 mg-0.5 mg/ 3 mL Soln-Inh) 3 Milliliter Inhalation 4 times a day as prescribed Unchanged celecoxib (celecoxib 200 mg Cap) 1 Capsules By Mouth 2 times a day as prescribed Unchanged denosumab (Prolia) 60 Milligram Subcutaneous Every 6 months as prescribed Unchanged dextromethorphan-pro methazine (dextromethorphan-pr omethazine 15 mg-6.25 mg/ 5 mL Oral Syrup 5 mL) 5 Milliliter By Mouth Every 6 hours as needed for for cough as prescribed Unchanged fluticasone nasal (Flonase 0.05 mg/ inh nasal spray) 2 Sprays Nasal Inhalation Every day as prescribed Unchanged fluticasone-salmeter ol (Wixela Inhub 250 mcg-50 mcg inhalation powder) See instructions INHALE 1 PUFF BY MOUTH TWICE DAILY IN THE MORNING AND AT NIGHT as prescribed Unchanged furosemide (Lasix 20 mg Tab) 1 Tablets By Mouth Every day as prescribed Unchanged guaifenesin (Mucinex 600 mg Tab-ER) 2 Tablets By Mouth 2 times a day Asthma exacerbation as prescribed Unchanged homatropine-hydrocod one (homatropine-hydroco done 1.5 mg-5 mg/ 5 mL oral syrup) 5 Milliliter By Mouth Every 4 hours as needed for for cough as prescribed Unchanged levothyroxine (levothyroxine 137 mcg (0.137 mg) Tab) See instructions TAKE 1 TABLET BY MOUTH EVERY DAY 01/24 AM Unchanged montelukast (montelukast 10 mg Tab) See instructions TAKE 1 TABLET BY MOUTH TWICE A DAY 01/23 PM Unchanged ondansetron (Zofran 4 mg Tab) 1 Tablets By Mouth Every 6 hours as prescribed Unchanged pantoprazole (Pantoprazole [address] Tab) 1 Tablets By Mouth Every day Duration: 90 Days 01/24 AM Unchanged potassium chloride (Potassium Chloride (Qkv-Bllp-Kum M20) 20 mEq oral tablet, extended release) 1 Tablets By Mouth 2 times a day 01/23 PM Unchanged predniSONE (predniSONE 20 mg Tab) 1 (more content not included)... Normal [facility] Interdisciplinary Note - Doug e Manageron 01-24-2024 Interdisciplinary Note - Trim Technician Interdisciplinary Note - Trim Technician CRM to room to discuss DC planning. Patient is awake, alert and oriented. Patient is from home with her spouse. He will transport [place]. Patient verified PCP, DME and insurance. Patient is inpatient for cellulitis. Patient is assigned to Dr Boyd, see notes. Patient is being seen by ID. Blood Cx Negative. Patient has wound to RLE. Patient has declined DME needs. She would like to help monitor her Cellulitis once she is home. Patient was provided CRM contact, tyson board updated. CRM following. Patient is a possible DC today or 01/24 CRM will get updates from Dr boyd at 10 AM [facility] accepted Normal [facility] Comment on above: Result Comment: Elec tronically Signed By: Consuelo Richards\.br\Date and Time Signed: 01/24/24 12:48 EDT CHEMISTRYOrdered By: Lab ROP User on 01-23-2024 Glucose [Mass/Vol] 181 mg/dL High 55 - 99 mg/dL FTM C POC Subsection Comment on above: Result Comment: Sugar muhammad RN/ POC Device SN [id number] 1 Invalid Interpretation Code FT POC Subsection POC User ID [id number] 1 Invalid Interpretation Code FT POC Subsection POC Username CONSTANTINO SCHMIDT Invalid Interpretation Code FT POC Subsection Glucose [Mass/Vol] 144 mg/dL High 55 - 99 mg/dL FTM C POC Subsection Comment on above: Result Comment: Sugar muhammad RN/ POC Device SN [id number] 1 Invalid Interpretation Code FT POC Subsection POC User ID [id number] 1 Invalid Interpretation Code FT POC Subsection POC Username BRANDY HANSON Invalid Interpretation Code FT POC Subsection CHEMISTRYOrdered By: SYSTEM SYSTEM on 01-23-2024 Vanco Pk 30 microgram/mL Normal 20 - 40 mcg/mL Remis ol Chem Anion gap [Moles/Vol] 11 mmol/L Normal 6 - 16 mEq/L Remisol Chem Calcium [Mass/Vol] 7.3 mg/dL Low 8.9 - 11.1 mg/dL Remisol Chem Chloride [Moles/Vol] 105 mmol/L Normal 101 - 111 mmol/ L Remisol Chem CO2 [Moles/Vol] 27 mmol/L Normal 21 - 31 mmol/L Remis ol Chem Creatinine [Mass/Vol] 0.3 mg/dL Low 0.5 - 1.3 mg/dL Remisol Chem eGFR 118 mL/min/1.73 m2 Normal >=59mL/mi n/1.73 m2 Remisol Chem Glucose [Mass/Vol] 133 mg/dL Normal 55 - 199 mg/dL Re misol Chem Potassium [Moles/Vol] 3.2 mmol/L Low 3.5 - 5.3 mmol/L Remisol Chem Sodium [Moles/Vol] 140 mmol/L Normal 135 - 145 mmol/L Remisol Chem Urea nitrogen [Mass/Vol] 4 mg/dL Low 5 - 21 mg/dL Remisol Chem Urea nitrogen/Creatinine [Mass ratio] 13 mg/mg Normal 10 - 20 Remisol Chem HEMATOLOGYOrdered By: SYSTEM SYSTEM on 01-23-2024 Basophils/100 WBC (Bld) 0.3 % Normal 0.0 - 2.0 % Remisol Heme Basophils/Leukocytes Auto (Bld) [Pure # fraction] 0.0 E9/L Normal 0.0 - 0.2 E9/L Remisol Heme Eosinophils (Bld) [#/Vol] 0.0 E9/L Normal 0.0 - 0.5 E9/L Remisol Heme Eosinophils/100 WBC (Bld) 0.3 % Normal 0.0 - 8.0 % Remisol Heme Erythrocyte distribution width (RBC) [Ratio] 17.1 % High 10.9 - 14.2 % Remisol Heme Hematocrit (Bld) [Volume fraction] 31.7 % Low 34.0 - 46.0 % Remisol Heme Hemoglobin (Bld) [Mass/Vol] 10.8 g/dL Low 12.0 - 16.0 gm/dL Remisol Heme Lymphocytes (Bld) [#/Vol] 0.6 E9/L Low 1.0 - 4.0 E9/L Remisol Heme Lymphocytes/100 WBC (Bld) 5.8 % Low 14.0 - 50.0 % Remisol Heme MCH (RBC) [Entitic mass] 29.7 pg Normal 27.0 - 34.0 pg Remisol Heme MCHC (RBC) [Mass/Vol] 33.9 g/dL Normal 31.4 - 36.0 gm/dL Remisol Heme MCV (RBC) [Entitic vol] 87.6 fL Normal 80.0 - 100.0 fL Remisol Heme Monocytes (Bld) [#/Vol] 0.5 E9/L Normal 0.2 - 1.0 E9/L Remisol Heme Monocytes/100 WBC (Bld) 4.9 % Normal 4.0 - 14.0 % Remisol Heme Neutrophils (Bld) [#/Vol] 9.7 E9/L High 2.0 - 7.5 E9/L Remisol Heme Neutrophils/100 WBC (Bld) 88.7 % High 36.0 - 75.0 % Remisol Heme Platelet 164.0 E9/L Normal 150.0 - 500.0 E9/L Remisol Heme Platelet mean volume (Bld) [Entitic vol] 7.3 fL Normal 6.4 - 10.8 fL Remisol Heme RBC (Bld) [#/Vol] 3.6 E12/L Low 4.3 - 5.9 E12/L Re misol Heme WBC corrected for nucl RBC Auto (Bld) [#/Vol] 10.9 E9/L Normal 4.0 - 11.0 E9/L Remisol Heme CBC w/ Auto Diffon 4 Basophils/100 WBC (Bld) 0.2 % Normal 0.0-2.0 [facility] Comment on above: Performed By: #### 2 [id number] #### [facility] [address] [place] [address] Basophils/Leukocytes Auto (Bld) [Pure # fraction] 0.0 E9/L Normal 0.0-0.2 [facility] Comment on above: Performed By: #### 2 [id number] #### [facility] [address] [place] [address] Eosinophils (Bld) [#/Vol] 0.1 E9/L Normal 0.0-0.5 [facility] Comment on above: Performed By: #### 2 [id number] #### [facility] [address] [place] [address] Eosinophils/100 WBC (Bld) 0.4 % Normal 0.0-8.0 [facility] Comment on above: Performed By: #### 2 [id number] #### [facility] [address] [place] [address] Erythrocyte distribution width (RBC) [Ratio] 17.7 % High 10.9-14.2 [facility] Comment on above: Performed By: #### 2 [id number] #### [facility] [address] [place] [address] Hematocrit (Bld) [Volume fraction] 32.9 % Low 34.0-46.0 [facility] Comment on above: Performed By: #### 2 [id number] #### [facility] [address] [place] [address] Hemoglobin (Bld) [Mass/Vol] 11.0 g/dL Low 12.0-16.0 [facility] Comment on above: Performed By: #### 2 [id number] #### [facility] [address] [place] [address] Lymphocytes (Bld) [#/Vol] 0.7 E9/L Low 1.0-4.0 [facility] Comment on above: Performed By: #### 2 [id number] #### [facility] [address] [place] [address] Lymphocytes/100 WBC (Bld) 5.4 % Low 14.0-50.0 [facility] Comment on above: Performed By: #### 2 [id number] #### [facility] [address] [place] [address] MCH (RBC) [Entitic mass] 29.5 pg Normal 27.0-34.0 [facility] Comment on above: Performed By: #### 2 [id number] #### [facility] [address] [place] [address] MCHC (RBC) [Mass/Vol] 33.3 g/dL Normal 31.4-36.0 [facility] Comment on above: Performed By: #### 2 [id number] #### [facility] [address] [place] [address] MCV (RBC) [Entitic vol] 88.5 fL Normal 80.0-100.0 [facility] Comment on above: Performed By: #### 2 [id number] #### [facility] [address] [place] [address] [place] [address] Monocytes (Bld) [#/Vol] 0.5 E9/L Normal 0.2-1.0 [facility] Comment on above: Performed By: #### 2 [id number] #### [facility] [address] [place] [address] Neutrophils (Bld) [#/Vol] 12.5 E9/L High 2.0-7.5 [facility] Comment on above: Performed By: #### 2 [id number] #### [facility] [address] [place] [address] Neutrophils/100 WBC (Bld) 90.6 % High 36.0-75.0 [facility] Comment on above: Performed By: #### 2 [id number] #### [facility] [address] [place] [address] Platelet 142.0 E9/L Low 150.0-500.0 [facility] Comment on above: Performed By: #### 2 [id number] #### [facility] [address] [place] [address] Platelet mean volume (Bld) [Entitic vol] 7.4 fL Normal 6.4-10.8 [facility] Comment on above: Performed By: #### 2 [id number] #### [facility] [address] [place] [address] RBC (Bld) [#/Vol] 3.7 E12/L Low 4.3-5.9 [facility] Comment on above: Performed By: #### 2 [id number] #### [facility] [address] [place] [address] WBC corrected for nucl RBC Auto (Bld) [#/Vol] 13.8 E9/L High 4.0-11.0 [facility] Comment on above: Performed By: #### 2 [id number] #### [facility] [address] [place] [address] Capillary Glucose POCon 12-30 Glucose [Mass/Vol] 126 mg/dL High 55-99 [facility] Comment on above: Result Comment: Sugar muhammad RN/ Performed By: #### 2 [id number] #### [facility] [address] [place] [address] HEMATOLOGYOrdered By: SYSTEM SYSTEM on 01-22-2024 Basophils/100 WBC (Bld) 0.2 % Normal 0.0 - 2.0 % Remisol Heme Basophils/Leukocytes Auto (Bld) [Pure # fraction] 0.0 E9/L Normal 0.0 - 0.2 E9/L Remisol Heme Eosinophils (Bld) [#/Vol] 0.1 E9/L Normal 0.0 - 0.5 E9/L Remisol Heme Eosinophils/100 WBC (Bld) 0.4 % Normal 0.0 - 8.0 % Remisol Heme Erythrocyte distribution width (RBC) [Ratio] 17.7 % High 10.9 - 14.2 % Remisol Heme Hematocrit (Bld) [Volume fraction] 32.9 % Low 34.0 - 46.0 % Remisol Heme Hemoglobin (Bld) [Mass/Vol] 11.0 g/dL Low 12.0 - 16.0 gm/dL Remisol Heme Lymphocytes (Bld) [#/Vol] 0.7 E9/L Low 1.0 - 4.0 E9/L Remisol Heme Lymphocytes/100 WBC (Bld) 5.4 % Low 14.0 - 50.0 % Remisol Heme MCH (RBC) [Entitic mass] 29.5 pg Normal 27.0 - 34.0 pg Remisol Heme MCHC (RBC) [Mass/Vol] 33.3 g/dL Normal 31.4 - 36.0 gm/dL Remisol Heme MCV (RBC) [Entitic vol] 88.5 fL Normal 80.0 - 100.0 fL Remisol Heme Monocytes (Bld) [#/Vol] 0.5 E9/L Normal 0.2 - 1.0 E9/L Remisol Heme Monocytes/100 WBC (Bld) 3.4 % Low 4.0 - 14.0 % Remisol Heme Neutrophils (Bld) [#/Vol] 12.5 E9/L High 2.0 - 7.5 E9/L Remisol Heme Neutrophils/100 WBC (Bld) 90.6 % High 36.0 - 75.0 % Remisol Heme Platelet 142.0 E9/L Low 150.0 - 500.0 E9/L Remisol Heme Platelet mean volume (Bld) [Entitic vol] 7.4 fL Normal 6.4 - 10.8 fL Remisol Heme RBC (Bld) [#/Vol] 3.7 E12/L Low 4.3 - 5.9 E12/L Re misol Heme WBC corrected for nucl RBC Auto (Bld) [#/Vol] 13.8 E9/L High 4.0 - 11.0 E9/L Remisol Heme Interdisciplinary Note - Doug e Manageron 01-22-2024 Interdisciplinary Note - Trim Technician Interdisciplinary Note - Trim Technician Patient is awake and alert in bed, await rounds with Dr. Boyd. Pt is from home with spouse and he will transport at [place]. Pt declines any concerns or DC needs. Pending Vascular consult, CRM following . PCP verified and Insurance information reviewed and DME discussed. Contact information provided and white board updated Normal [facility] Comment on above: Result Comment: Elec tronically Signed By: Shannan BRIGHT, Ashlee\.dusty\Date and Time Signed: 01/22/24 08:48 EDT CBC w/Indiceson 01-21-2024 Erythrocyte distribution width (RBC) [Ratio] 17.5 % High 10.9-14.2 [facility] Comment on above: Performed By: #### 2 [id number] #### [facility] [address] [place] [address] Hematocrit (Bld) [Volume fraction] 32.7 % Low 34.0-46.0 [facility] Comment on above: Performed By: #### 2 [id number] #### [facility] [address] [place] [address] Hemoglobin (Bld) [Mass/Vol] 10.9 g/dL Low 12.0-16.0 [facility] Comment on above: Performed By: #### 2 [id number] #### [facility] [address] [place] [address] MCH (RBC) [Entitic mass] 29.6 pg Normal 27.0-34.0 [facility] Comment on above: Performed By: #### 2 [id number] #### [facility] [address] [place] [address] MCHC (RBC) [Mass/Vol] 33.3 g/dL Normal 31.4-36.0 [facility] Comment on above: Performed By: #### 2 [id number] #### [facility] [address] [place] [address] MCV (RBC) [Entitic vol] 88.9 fL Normal 80.0-100.0 [facility] Comment on above: Performed By: #### 2 [id number] #### [facility] [address] [place] [address] Platelet 140.0 E9/L Low 150.0-500.0 [facility] Comment on above: Performed By: #### 2 [id number] #### [facility] [address] [place] [address] Platelet mean volume (Bld) [Entitic vol] 7.8 fL Normal 6.4-10.8 [facility] Comment on above: Performed By: #### 2 [id number] #### [facility] [address] [place] [address] RBC (Bld) [#/Vol] 3.7 E12/L Low 4.3-5.9 [facility] Comment on above: Performed By: #### 2 [id number] #### [facility] [address] [place] [address] RBC size Nom (Bld) NORMAL Invalid Interpretation Code [facility] Comment on above: Performed By: #### 2 [id number] #### [facility] [address] [place] [address] WBC corrected for nucl RBC Auto (Bld) [#/Vol] 16.6 E9/L High 4.0-11.0 [facility] Comment on above: Performed By: #### 2 [id number] #### [facility] [address] [place] [address] CHEMISTRYOrdered By: SYSTEM SYSTEM on 01-21-2024 Lactic Acid Lvl 2.6 mmol/L High 0.5 - 2.2 mmol/L Rem isol Chem Capillary Glucose POCon 12-30 Glucose [Mass/Vol] 239 mg/dL High 55-99 [facility] Comment on above: Result Comment: Sugar WALKER Performed By: #### 2 [id number] #### [facility] [address] [place] [address] Glucose [Mass/Vol] 105 mg/dL High 55-99 [facility] Comment on above: Result Comment: Sugar WALKER Performed By: #### 2 [id number] #### [facility] [address] [place] [address] Glucose [Mass/Vol] 126 mg/dL High -[address] [place] [address] Comment on above: Result Comment: Sugar WALKER Performed By: #### 2 [id number] #### [facility] [address] [place] [address] Glucose [Mass/Vol] 140 mg/dL High 55-[address] [place] [address] Comment on above: Result Comment: Sugar WALKER Performed By: #### 2 [id number] #### [facility] [address] [place] [address] ED Clinical Summaryon 2023 ED Clinical Summary ED Clinical Summary [address] [address] ED Clinical Summary Person Information Name: CAROLINA GUTIERREZ [place]/[facility] Age: 63 Years : 1960 Sex: Female Language: Samoan PCP: Berry Canales Marital Status: Phone: [phone] Visit Id: Visit Reason: Chills; Nausea; Lower leg pain-swelling; CHILLS,NAUSEA, CELLULIST ON RT LEG Speciality: Acuity: 2 Enc Type: Inpatient Med Service: Emergency Arrival: 01/20/2024 21:45:43 Discharge: LOS: 000 04:37 Checkin: 01/20/2024 21:45:43 Checkout: 01/21/2024 02:22:55 Dispo Type: Admitted as IP to this [facility] EVENTS: Event Name Event Status Request Date/Time Start Date/Time Complete Date/Time Arrive Complete 01/20/2024 21:45:43 01/20/2024 21:45:43 01/20/2024 21:45:43 Document Home Meds Request 01/20/2024 21:45:43 Triage Complete 01/20/2024 21:45:43 01/20/2024 22:07:54 01/20/2024 22:07:54 Registration Complete 01/20/2024 21:50:27 01/20/2024 21:50:27 01/20/2024 21:50:27 Reg Complete Request 01/20/2024 21:50:27 Reg Bed Request Complete 01/20/2024 21:50:27 01/20/2024 21:50:27 01/20/2024 21:50:27 Isolation Screening Request 01/20/2024 22:07:55 30 Day Return Request 01/20/2024 22:07:55 Bed Assign Complete 01/20/2024 22:08:41 01/20/2024 22:08:41 01/20/2024 22:08:41 Dr Exam Complete 01/20/2024 22:08:41 01/20/2024 22:08:55 01/20/2024 22:08:55 RN Exam Complete 01/20/2024 22:08:41 01/20/2024 22:19:53 01/20/2024 22:19:53 Registration Complete 01/20/2024 22:08:55 01/21/2024 01:17:53 01/21/2024 01:17:53 EKG Complete 01/20/2024 22:21:23 01/20/2024 22:48:46 Meds Admin Complete 01/20/2024 22:21:23 01/20/2024 23:40:26 Pending Labs Inlab 01/20/2024 22:21:23 Lab Inlab 01/20/2024 22:21:23 X-Ray Complete 01/20/2024 22:21:23 01/20/2024 22:30:38 01/20/2024 22:58:45 RT Request 01/20/2024 22:21:23 Wet Read Request 01/20/2024 22:58:45 Pending Labs Complete 01/20/2024 22:59:29 01/20/2024 22:59:29 01/20/2024 23:51:38 Lab Complete 01/20/2024 22:59:29 01/20/2024 22:59:29 01/20/2024 23:51:38 Meds Admin Complete 01/20/2024 23:12:37 01/20/2024 23:40:27 Pending Labs Request 01/20/2024 23:38:34 Lab Request 01/20/2024 23:38:34 Meds Admin Complete 01/21/2024 00:49:20 01/21/2024 01:29:12 Bed Request Request 01/21/2024 01:16:12 Reg Bed Request Complete 01/21/2024 01:16:12 01/21/2024 01:17:53 01/21/2024 01:17:53 Admit Request 01/21/2024 01:16:12 Consult Request 01/21/2024 01:16:26 Hospitalist Consult Request 01/21/2024 01:16:27 Patient Care Request 01/21/2024 01:17:53 Patient Care Request 01/21/2024 01:17:54 Patient Care Request 01/21/2024 01:17:54 Patient Care Request 01/21/2024 01:17:55 Patient Care Request 01/21/2024 01:17:55 Patient Care Request 01/21/2024 01:17:55 Meds Admin Complete 01/21/2024 01:26:54 01/21/2024 01:33:10 ADDRESS: [address] [place] [id number] PHYS DOC NOTES: MEDICAL INFORMATION: Prescriptions Given: Medications to Continue with No Changes Other Medications albuterol (ProAir RespiClick 90 mcg/inh inhalation powder) 2 Puffs Inhalation every 4 hours as needed for wheezing or SOB. Refills: 11. albuterol-ipratropiu m (DuoNeb 2.5 mg-0.5 mg/3 mL Soln-Inh) 3 Milliliter Nebulized inhalation (aerosol) 6 times a day. Refills: 1. albuterol-ipratropiu m (DuoNeb 2.5 mg-0.5 mg/3 mL Soln-Inh) 3 Milliliter Inhalation 4 times a day. Refills: 0. celecoxib (celecoxib 200 mg Cap) 1 Capsules By Mouth 2 times a day. denosumab (Prolia) 60 Milligram Subcutaneous every 6 months. dextromethorphan-pro methazine (dextromethorphan-pr omethazine 15 mg-6.25 mg/5 mL Oral Syrup 5 mL) 5 Milliliter By Mouth every 6 hours as needed for cough. Refills: 0. fluticasone nasal (Flonase 0.05 mg/inh nasal spray) 2 Sprays Nasal Inhalation every day. fluticasone-salmeter ol (Wixela Inhub 250 mcg-50 mcg inhalation powder) INHALE 1 PUFF BY MOUTH TWICE DAILY IN THE MORNING AND AT NIGHT. Refills: 1. furosemide (Lasix 20 mg Tab) 1 Tablets By Mouth every day. Refills: 0. guaifenesin (Mucinex 600 mg Tab-ER) 2 Tablets By Mouth 2 times a day. Refills: 0. homatropine-hydrocod one (homatropine-hydroco done 1.5 mg-5 mg/5 mL oral syrup) 5 Milliliter By Mouth every 4 hours as needed for cough. Refills: 0. levofloxacin (Levaquin) every 24 hours. levothyroxine (levothyroxine 137 mcg (0.137 mg) Tab) TAKE 1 TABLET BY MOUTH EVERY DAY. Refills: 4. montelukast (montelukast 10 mg Tab) TAKE 1 TABLET BY MOUTH TWICE A DAY. Refills: 1. ondansetron (Zofran 4 mg Tab) 1 Tablets By Mouth every 6 hours. Refills: 1. pantoprazole (Pantoprazole [address] Tab) 1 Tablets By Mouth every day for 90 Days. Refills: 3. potassium chloride (Potassium Chloride (Owu-Xkng-Ymi M20) 20 mEq oral tablet, extended release) 1 Tablets By Mouth 2 times a day. Refills: 0. predniSONE (predniSONE 20 mg Tab) 1 Tablets By Mouth As Directed. Take two tabs for 4 days, then one and half tabs for 4 days, then one tab for 4 days then half tab for 4 days then stop. Refi (more content not included)... Normal [facility] ED Note-Physicianon 01-21-20 ED Note-Physician ED Note-Physician Basic Information Time Seen: Shalom Toledo DO 01/20/2024 22:08 Chief Complaint Pt states tonight started with R lower leg redness, chills, nausea. Pt had skin cancer removed on that leg about 3 weeks ago. States redness just started today and has gotten rapidly worse. History of Present Illness Patient is a 63-year-old female with past medical history of hypertension, hyperlipidemia, rheumatoid arthritis, recent admission for colitis in addition to pneumonia presenting to the ED for evaluation of right lower extremity redness chills and nausea. Patient had a biopsy done of the right lower extremity 3 weeks ago, noted redness yesterday is progressively worsened. Patient states he had a notes associated chills, nausea denies any fevers, chest pain, shortness of breath, dizziness or lightheadedness. Review of Systems A 10 point review of systems is negative except as noted above. Medical and Surgical History: Reviewed and noted Social history: Lives at home Tobacco: Denies Physical Exam Vitals & Measurements T: 36.9 ?C(Oral) HR: 128(Monitored) RR: 20 BP: 121/61 SpO2: 95% HT: 149 cm WT: 89.5 kg BMI: 40.31 General: Well developed, non toxic appearing, no acute distress HEENT: Head atraumatic, Mucosa moist, hearing grossly normal Neck: No JVD, tracheal deviation Cardiac: Tachycardic, regular rhythm no murmurs, or gallops, 2+ radial pulses Respiratory: Lungs clear to auscultation B/L, normal respiratory effort Abdomen: Soft non tender, no rebound or guarding, no peritoneal signs Extremities: Erythema noted of the right lower extremity, mid calf Neurologic: Alert and oriented, speech clear Skin: No rashes or lesions Psych: Appropriate mood and behavior Medical Decision Making MEDICAL DECISION MAKING Number and Complexity of Problems Differential Diagnosis: [] [facility] Data External documents reviewed: [] My EKG interpretation: [] My CT interpretation: [] My X-ray interpretation: [] My Ultrasound interpretation: [] Decision rules/scores evaluated: [] Discussed with: [] Treatment and Disposition ED Course: Patient is a 63-year-old female presenting to the ED for evaluation of right lower extremity redness. Patient is tachycardic, borderline pressures on initial arrival septic workup is obtained. Patient was given IV fluids, Zofran. Patient does have evidence of a cellulitis of her right lower extremity. Patient's laboratory evaluation reveals a leukocytosis of 14.9, lactic acid mildly elevated at 2.3. Chest x-ray is obtained and shows no acute infiltrate or pathology. Patient despite 1 L of IV fluids continues to remain tachycardic in the 130s. Unable to give patient any further fluids as she was recently admitted for decompensated heart failure. Discussed findings with patient started on clindamycin she is agreeable admission to the hospital. Discussed the case with the hospitalist accepts the patient for admission. Shared decision making: [] Code status: [] Assessment/Plan Cellulitis (L03.90: Cellulitis, unspecified) Sinus tachycardia (R00.0: Tachycardia, unspecified) Orders: clindamycin + Dextrose 5% in Water intravenous solution 50 mL, 600 mg = 50 mL, IV Piggyback, Once, Stop date 01/21/24 0:49:00 EDT, STAT, Start date 01/21/24 0:49:00 EDT, 100 mL/hr, Infuse over 30 minute(s), 01/21/24 0:49:00 EDT ondansetron, 4 mg = 2 mL, Injection, IV Push, Once, Stop date 01/20/24 23:12:00 EDT, STAT, Start date 01/20/24 23:12:00 EDT, 01/20/24 23:12:00 EDT Sodium Chloride 0.9% intravenous solution, 1,000 mL, Soln-IV, IV, Once, Stop date 01/20/24 22:21:00 EDT, STAT, Start date 01/20/24 22:21:00 EDT, Infuse over 61, minute(s) Blood Culture Charcoal Blood Culture Charcoal CBC w/ Auto Diff Comprehensive Metabolic Panel Continuous Pulse Oximetry ECG 12 Lead Adult ED Cardiac Monitoring ED Physician consult Hospitalist for continued care eGFR Lactic Acid Lactic Acid Oxygen Therapy PT & PTT Troponin UA with Cult Rflx XR Chest Single View Medications Administered Given NS 1000 ml Bolus, 1000 mL, IV Zofran 4 mg/2 mL Injection, 4 mg, IV Push Disposition Plan Patient Discharge Condition Fair Discharge Disposition Admitted Discharge Prescription List Prescriptions No active prescription medications Follow-up No qualifying data available Problem List/Past Medical History Ongoing Adult BMI 38.0-38.9 kg/sq m Allergic rhinitis Anemia Annual physical exam Anti-citrullinated protein antibody detected Bilateral otitis media BMI 40.0-44.9, adult Bronchitis Chronic peripheral venous hypertension with lower extremity complication Chronic sinusitis Colitis Cough Derangement of knee Diverticular disease Esophageal web Exposure to COVID-19 virus Fluid level behind tympanic membrane of both ears Gastroesophageal reflux disease without esophagitis Hemorrhoids Hospital discharge follow-up Hx of pulmo (more content not included)... [facility] [facility] Comment on above: Result Comment: Elec tronically Signed By: Shalom Toledo DO\.br\Date and Time Signed: 01/21/24 01:26 EDT ED Patient Education Noteon 01-21-2024 ED Patient Education Note ED Patient Education Note Normal [facility] ED Patient Summaryon 024 ED Patient Summary ED Patient Summary [place] [id number] Patient Discharge Instructions Person Information Name: CAROLINA GUTIERREZ Age: 63 Years Arrival Date: 01/20/2024 21:45:43 Discharge Diagnosis: Cellulitis; Sinus tachycardia Primary Care Physician: Berry Canales Provider Information Primary Provider: Shalom Toledo DO Advanced Shredder Operator:None The exam and treatment you received in the Emergency Department were for an urgent problem and are not intended as complete care. It is important that you follow up with a doctor, nurse practitioner, or physician?s executive administrative assistant for ongoing care. If your symptoms become worse or you do not improve as expected and you are unable to reach your usual health care provider, you should return to the Emergency Department. We are available 24 hours a day. CAROLINA GUTIERREZ has been given the following list of patient education materials, prescriptions and follow-up instructions: Follow-up Instructions: In the event that this physician does not participate in your insurance network, please consult with your insurance company to find a nearby participating provider. Patient Education Materials: A MESSAGE TO ALL PATIENTS REGARDING OPIOIDS PRESCRIPTION OPIOIDS: WHAT YOU NEED TO KNOW Prescription opioids can be used to help relieve yvzsvfqi-da-sodxry pain and are often prescribed following a [...] unused prescription opioids: Find your community drug take-back program or your pharmacy mail-back program, or flush them down the toilet, following guidance from the Food and Drug Administration (www.fda.gov/Drugs/R esourcesForYou). ? Visit www.cdc.gov/drugover dose to learn about the risks of opioids abuse and overdose. ? If you believe you may be struggling with addiction, tell your health certified caregiver and ask for guidance or call [facility]?S National Helpline at 0-491-169-LQJQ. d Source: [place] Department of Health and Human Services/Center for Disease Control & Prevention [facility] Medications Given: Medication (more content not included)... Normal [facility] HEMATOLOGYOrdered By: SYSTEM SYSTEM on 01-21-2024 RBC size Nom (Bld) NORMAL *NA* (01/21/24 6:11 AM) Invalid Interpretation Code Remisol Heme Inpatient Clinical Summaryon 01-21-2024 Inpatient Clinical Summary Inpatient Clinical Summary [address] [address] Clinical Summary Person Information: Name: CAROLINA GUTEIRREZ Age: 63 Years : 1960 Sex: Female PCP: Berry Canales Marital Status: Phone: [phone] Race: White Ethnicity: Non- or Language: Samoan Visit Id: Visit Reason: Chills; Nausea; Lower leg pain-swelling; CHILLS,NAUSEA, CELLULIST ON RT LEG Speciality: Acuity: Enc Type: Inpatient Med Service: Medical Arrival: 01/20/2024 21:45:43 Discharge: Dispo Type: Admitted as IP to this Hosp Address: [address] [place] [phone] Provider Notes: Diagnosis: 1:Sepsis; 2:Cellulitis; 3:Leukocytosis; 4:Asthma; 5:History of colitis; 6:DM2 (diabetes mellitus, type 2); 7:Gastroesophageal reflux disease without esophagitis; 8:Hypothyroidism; 9:On deep vein thrombosis (DVT) prophylaxis; Sinus tachycardia Problems Active DM2 (diabetes mellitus, type 2) History of colitis Asthma Smoker Hospital discharge follow-up Adult BMI 38.0-38.9 kg/sq m Left lower lobe pneumonia 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) Lung nodules Bronchitis Morbid obesity with BMI of 40.0-44.9, adult Fluid level behind tympanic membrane of both ears Right otitis media Low hemoglobin Pre-op exam Bilateral otitis media Wheezing Shortness of breath Nasal congestion Cough Exposure to COVID-19 virus Gastroesophageal reflux disease without esophagitis Hypothyroidism Viral gastritis Colitis Hx of pulmonary embolus Annual physical exam BMI 40.0-44.9, adult Weight loss, unintentional Allergic rhinitis Non-insulin dependent type 2 diabetes mellitus Hypoxemia Diverticular disease Derangement of knee Chronic peripheral venous hypertension with lower extremity complication Chronic sinusitis Rheumatoid arthritis involving multiple sites with positive rheumatoid factor Anemia Hemorrhoids Esophageal web Obesity due to excess calories Oral thrush Moderate asthma without complication Smoking Status: Never Smoker Functional Status: Sensory Deficits: History of Falls: Mobility Assistance Prior to Admission: ADLs: Current Level of Assistance for Self-Care/Mobility: Cognitive Status: Oriented x 3 Allergies penicillin G benzathine (Hives) Keflex (Hives) Pradaxa (Unknown) Cefzil (Unknown) Eliquis (Unknown) Measurements: Height: 149.86 cm Weight: 91.3 kg Blood Pressure: 111 mmHg / 70 mmHg BMI: 40.65 kg/m2 Procedures No Procedures Documented Immunizations No Immunizations Documented This Visit Final Med List: albuterol (ProAir RespiClick 90 mcg/inh inhalation powder) 2 Puffs Inhalation every 4 hours as needed for wheezing or SOB. Refills: 11. albuterol-ipratropiu m (DuoNeb 2.5 mg-0.5 mg/3 mL Soln-Inh) 3 Milliliter Nebulized inhalation (aerosol) 6 times a day. Refills: 1. albuterol-ipratropiu m (DuoNeb 2.5 mg-0.5 mg/3 mL Soln-Inh) 3 Milliliter Inhalation 4 times a day. Refills: 0. celecoxib (celecoxib 200 mg Cap) 1 Capsules By Mouth 2 times a day. denosumab (Prolia) 60 Milligram Subcutaneous every 6 months. dextromethorphan-pro methazine (dextromethorphan-pr omethazine 15 mg-6.25 mg/5 mL Oral Syrup 5 mL) 5 Milliliter By Mouth every 6 hours as needed for cough. Refills: 0. fluticasone nasal (Flonase 0.05 mg/inh nasal spray) 2 Sprays Nasal Inhalation every day. fluticasone-salmeter ol (Wixela Inhub 250 mcg-50 mcg inhalation powder) INHALE 1 PUFF BY MOUTH TWICE DAILY IN THE MORNING AND AT NIGHT. Refills: 1. furosemide (Lasix 20 mg Tab) 1 Tablets By Mouth every day. Refills: 0. guaifenesin (Mucinex 600 mg Tab-ER) 2 Tablets By Mouth 2 times a day. Refills: 0. homatropine-hydrocod one (homatropine-hydroco done 1.5 mg-5 mg/5 mL oral syrup) 5 Milliliter By Mouth every 4 hours as needed for cough. Refills: 0. levofloxacin (Levaquin) every 24 hours. levothyroxine (levothyroxine 137 mcg (0.137 mg) Tab) TAKE 1 TABLET BY MOUTH EVERY DAY. Refills: 4. montelukast (montelukast 10 mg Tab) TAKE 1 TABLET BY MOUTH TWICE A DAY. Refills: 1. ondansetron (Zofran 4 mg Tab) 1 Tablets By Mouth every 6 hours. Refills: 1. pantoprazole (Pantoprazole [address] Tab) 1 Tablets By Mouth every day for 90 Days. Refills: 3. potassium chloride (Potassium Chloride (Jfb-Lhzx-Cuc M20) 20 mEq oral tablet, extended release) 1 Tablets By Mouth 2 times a day. Refills: 0. predniSONE (predniSONE 20 mg Tab) 1 Tablets By Mouth As Directed. Take two tabs for 4 days, then one and half tabs for 4 days, then one tab for 4 days then half tab for 4 days then stop. Refills: 0. semaglutide (Ozempic (1 mg dose)) 2 mg SubCutaneous qWeek, ordered by another provider. tiotropium (Spiriva Respimat 1.25 mcg/inh inhalation aerosol) 2 Inhalation Inhalation every day. upadacitinib (Rinvoq 15 mg oral tablet, exte (more content not included)... Normal [facility] Inpatient Patient Summaryon 01-21-2024 Inpatient Patient Summary Inpatient Patient Summary [place] [id number] Patient Discharge Instructions PERSON INFORMATION Name: CAROLINA GUTIERREZ Date of : 1960 Current Date: 01/21/2024 08:51:01 PHYSICIANS Admitting Physician: Halle HOUSTON DO Primary Care Physician: Berry Canales PCP Comment: Discharge Diagnosis: 1:Sepsis; 2:Cellulitis; 3:Leukocytosis; 4:Asthma; 5:History of colitis; 6:DM2 (diabetes mellitus, type 2); 7:Gastroesophageal reflux disease without esophagitis; 8:Hypothyroidism; 9:On deep vein thrombosis (DVT) prophylaxis; Sinus tachycardia Condition at Discharge: CAROLINA GUTIERREZ has been given the following list of follow-up instructions, prescriptions, and patient education materials: PATIENT FOLLOW-UP INFORMATION Diet: Discharge Activity: Discharge Restrictions: Wound Care Instructions: Remove Your Dressing In Days Call Your Doctor For: IF UNABLE TO CONTACT YOUR PHYSICIAN AND YOU FEEL IT IS AN EMERGENCY, GO TO THE NEAREST EMERGENCY ROOM OR CALL 911 Home Treatment: Devices/Equipment: Nebulizer Special Services: Additional Instructions: Primary Care Physician to provide the following pending test results: Follow up: In the event that this physician does not participate in your insurance network, please consult with your insurance company to find a nearby participating provider. Type Location Start [facility] 8:00 AM 01/24/2024 8:15 AM Confirmed [facility] Follow Up [facility] 01/24/2024 10:15 AM 01/24/2024 10:30 AM Confirmed Comment: Shaunna CAROLINA GUTIERREZ, have received the attached patient education materials/instructio ns and have verbalized understanding: Patient Signature Date Clinican/Nurse Signature Date HERE ARE THE MEDICATION CHANGES THAT OCCURRED DURING YOUR HOSPITAL STAY Medications to Continue with No Changes Other Medications albuterol (ProAir RespiClick 90 mcg/inh inhalation powder) 2 Puffs Inhalation every 4 hours as needed for wheezing or SOB. Refills: 11. Last Dose: Next Dose: albuterol-ipratropiu m (DuoNeb 2.5 mg-0.5 mg/3 mL Soln-Inh) 3 Milliliter Nebulized inhalation (aerosol) 6 times a day. Refills: 1. Last Dose: Next Dose: albuterol-ipratropiu m (DuoNeb 2.5 mg-0.5 mg/3 mL Soln-Inh) 3 Milliliter Inhalation 4 times a day. Refills: 0. Last Dose: Next Dose: celecoxib (celecoxib 200 mg Cap) 1 Capsules By Mouth 2 times a day. Last Dose: Next Dose: denosumab (Prolia) 60 Milligram Subcutaneous every 6 months. Last Dose: Next Dose: dextromethorphan-pro methazine (dextromethorphan-pr omethazine 15 mg-6.25 mg/5 mL Oral Syrup 5 mL) 5 Milliliter By Mouth every 6 hours as needed for cough. Refills: 0. Last Dose: Next Dose: fluticasone nasal (Flonase 0.05 mg/inh nasal spray) 2 Sprays Nasal Inhalation every day. Last Dose: Next Dose: fluticasone-salmeter ol (Wixela Inhub 250 mcg-50 mcg inhalation powder) INHALE 1 PUFF BY MOUTH TWICE DAILY IN THE MORNING AND AT NIGHT. Refills: 1. Last Dose: Next Dose: furosemide (Lasix 20 mg Tab) 1 Tablets By Mouth every day. Refills: 0. Last Dose: Next Dose: guaifenesin (Mucinex 600 mg Tab-ER) 2 Tablets By Mouth 2 times a day. Refills: 0. Last Dose: Next Dose: homatropine-hydrocod one (homatropine-hydroco done 1.5 mg-5 mg/5 mL oral syrup) 5 Milliliter By Mouth every 4 hours as needed for cough. Refills: 0. Last Dose: Next Dose: levofloxacin (Levaquin) every 24 hours. Last Dose: Next Dose: levothyroxine (levothyroxine 137 mcg (0.137 mg) Tab) TAKE 1 TABLET BY MOUTH EVERY DAY. Refills: 4. Last Dose: Next Dose: montelukast (montelukast 10 mg Tab) TAKE 1 TABLET BY MOUTH TWICE A DAY. Refills: 1. Last Dose: Next Dose: ondansetron (Zofran 4 mg Tab) 1 Tablets By Mouth every 6 hours. Refills: 1. Last Dose: Next Dose: pantoprazole (Pantoprazole [address] Tab) 1 Tablets By Mouth every day for 90 Days. Refills: 3. Last Dose: Next Dose: potassium chloride (Potassium Chloride (Dsr-Frmv-Aya M20) 20 mEq oral tablet, extended release) 1 Tablets By Mouth 2 times a day. Refills: 0. Last Dose: Next Dose: (more content not included)... [facility] Interdisciplinary Note - Doug e Manageron 01-21-2024 Interdisciplinary Note - Trim Technician Interdisciplinary Note - Trim Technician Patient is awake and alert in bed, previously rounded with Dr. Castañeda. Pt is from home with spouse and he will transport at [place]. Pt is aware of inpatient status, pending ID and Vascular to see. Pt declines any concerns or DC needs. CRM following . PCP verified and insurance information reviewed and DME discussed. Contact information provided and white board updated. Normal [facility] Comment on above: Result Comment: Elec tronically Signed By: Shannan BRIGHT, Ashlee\.dusty\Date and Time Signed: 01/21/24 08:43 EDT Lactic Acidon 01-21-2024 Lactic Acid Lvl 2.6 mmol/L High 0.5-2.2 [facility] Comment on above: Order Comment: Order added by EKS Rule. (FT_LACTIC_ACID_REFLEX) Adds reflex Lactic Acid 4 hours after initial if result is greater than or equal to 2.0. Performed By: #### 2 [id number] #### [facility] [address] [place] [address] UA with Cult Rflxon 01-21-20 Bilirubin Ql (U) Negative Normal Negative [facility] Comment on above: Performed By: #### 4 [id number] #### [facility] [address] [place] [address] Clarity (U) Clear Normal Clear [facility] Comment on above: Performed By: #### 4 [id number] #### [facility] [address] [place] [address] Color (U) Yellow Normal Yellow [facility] Comment on above: Result Comment: Micr oscopic readings are only performed on those samples that meet specific criteria set forth by [facility]. Performed By: #### 4 [id number] #### [facility] [address] [place] [address] Glucose Ql (U) Trace Abnormal Negative [facility] Comment on above: Performed By: #### 4 [id number] #### [facility] [address] [place] [address] Hemoglobin Auto test strip (U) [Mass/Vol] Negative Normal Negative [facility] Comment on above: Performed By: #### 4 [id number] #### [facility] [address] [place] [address] Ketones Auto test strip Ql (U) Trace Abnormal Negative [facility] Comment on above: Performed By: #### 4 [id number] #### [facility] [address] [place] [address] Leukocyte esterase Auto test strip Ql (U) Negative Normal Negative [facility] Comment on above: Performed By: #### 4 [id number] #### [facility] [address] [place] [address] Nitrite Auto test strip Ql (U) Negative Normal Negative [facility] Comment on above: Performed By: #### 4 [id number] #### [facility] [address] [place] [address] pH (U) 5.0 [pH] Invalid Interpretation Code 5.0-9.0 [facility] Comment on above: Performed By: #### 4 [id number] #### [facility] [address] [place] [address] Protein Ql (U) Negative Normal Negative [facility] Comment on above: Performed By: #### 4 [id number] #### [facility] [address] [place] [address] Specific gravity (U) [Rel density] 1.023 Invalid Interpretation Code 1.005-1.030 [facility] Comment on above: Performed By: #### 4 [id number] #### [facility] [address] [place] [address] Urobilinogen (U) [Mass/Vol] Negative Normal Negative [facility] Comment on above: Performed By: #### 4 [id number] #### [facility] [address] [place] [address] URINALYSISOrdered By: SYSTEM SYSTEM on 01-21-2024 Bilirubin Ql (U) Negative Normal Negativemg/dL [facility] UA Auto SS Clarity (U) Clear (01/21/24 1:31 AM) Normal Clear [facility] UA Auto SS Color (U) Yellow 1 (01/21/24 1:31 AM) Normal Yellow [facility] UA Auto SS Comment on above: Interpretive Data: M icroscopic readings are only performed on those samples that meet specific criteria set forth by [facility]. Glucose Ql (U) Trace mg/dL Invalid Interpretation Code Negativemg/dL [facility] UA Auto SS Hemoglobin Auto test strip (U) [Mass/Vol] Negative Normal Negativemg/dL [facility] UA Aut o SS Ketones Auto test strip Ql (U) Trace mg/dL Invalid Interpretation Code Negativemg/dL [facility] UA Auto SS Leukocyte esterase Auto test strip Ql (U) Negative Normal NegativeLeu/uL FT UA Auto SS Nitrite Auto test strip Ql (U) Negative Normal Negativemg/dL [facility] UA Auto SS pH (U) 5.0 *NA* (01/21/24 1:31 AM) Invalid Interpretation Code 5.0 - 9.0 [facility] UA Auto SS Protein Ql (U) Negative Normal Negativemg/dL [facility] UA Auto SS Specific gravity (U) [Rel density] 1.023 *NA* (01/21/24 1:31 AM) Invalid Interpretation Code 1.005 - 1.030 [facility] UA Auto SS Urobilinogen (U) [Mass/Vol] Negative Normal Negativemg/dL [facility] UA Auto SS URINALYSISOrdered By: Lia Toledo on 01-21-2024 UA Spec Desc Clean Catch (01/21/24 1:31 AM) Normal [facility] UA Auto SS US Extremity Non-Vascular Li jaswant Righton 01-21-2024 US Extremity Non-Vascular Limited Right Exam Date/Time: 01/21/2024 07:34 EDT Reason for Exam: Leg pain Report IMPRESSION: Diffuse subcutaneous edema skin thickening, associated with cellulitis. No well-defined loculated drainable collection sonographically. EXAMINATION: US Extremity Non-Vascular Limited Right HISTORY: Leg pain. Right lower leg cellulitis with history of recent skin biopsy. Concern for abscess. TECHNIQUE: Grayscale and power Doppler ultrasound imaging was performed in the area of concern and images were saved to the permanent image archive. COMPARISON: None. RESULT: Limited ultrasound performed over the area of skin, labeled right clarke distally over wound. Diffuse subcutaneous edema with skin thickening, associated with cellulitis. No well-defined loculated drainable collection visualized sonographically. Possible small focal area of phlegmon measuring around 0.7 cm. Ordering Provider: ISAAC, Ronobir FINAL REPORT Dictated: 01/21/2024 10:59 am Calderon Thibodeaux MD Signed (Electronic Signature): 01/21/2024 10:59 am Signed by: Calderon Thibodeaux MD Transcribed by: FRANCISCA Technologist: PATRICIO Lama [facility] XR Chest Single Viewon 01-20 XR Chest Single View Exam Date/Time: 01/20/2024 22:58 EDT Reason for Exam: Shortness of breath (SOB) Report IMPRESSION: NO RADIOGRAPHIC EVIDENCE OF ACUTE INTRATHORACIC PROCESS. EXAM: XR Chest Single View History: Shortness of breath Technique: Portable AP view of the chest. Comparison: 12/29/2023 Findings: The cardiomediastinal silhouette is within normal limits. No pneumothorax, pleural effusion, or consolidation. Bilateral lung base scarring. No acute osseous abnormality. Postsurgical changes of left shoulder arthroplasty with displacement of the glenoid component. Correlation is recommended. Degenerative changes of the right shoulder. Ordering Provider: Shalom Toledo FINAL REPORT Dictated: 01/21/2024 10:14 am Ruthie Burrell DO Signed (Electronic Signature): 01/21/2024 10:14 am Signed by: Ruthie Burrell DO Transcribed by: FRANCISCA Technologist: TRACI Technical Comments Radiation Dose: Ka,r in mGy = n/a DAP = n/a Normal [facility] CBC w/ Auto Diffon 4 Basophils/100 WBC (Bld) 0.2 % Normal 0.0-2.0 [facility] Comment on above: Performed By: #### 2 [id number] #### [facility] [address] [place] [address] Basophils/Leukocytes Auto (Bld) [Pure # fraction] 0.0 E9/L Normal 0.0-0.2 [facility] Comment on above: Performed By: #### 2 [id number] #### [facility] [address] [place] [address] Eosinophils (Bld) [#/Vol] 0.0 E9/L Normal 0.0-0.5 [facility] Comment on above: Performed By: #### 2 [id number] #### [facility] [address] [place] [address] Eosinophils/100 WBC (Bld) 0.2 % Normal 0.0-8.0 [facility] Comment on above: Performed By: #### 2 [id number] #### [facility] [address] [place] [address] Erythrocyte distribution width (RBC) [Ratio] 17.9 % High 10.9-14.2 [facility] Comment on above: Performed By: #### 2 [id number] #### [facility] [address] [place] [address] Hematocrit (Bld) [Volume fraction] 39.6 % Normal 34.0-46.0 [facility] Comment on above: Performed By: #### 2 [id number] #### [facility] [address] [place] [address] Hemoglobin (Bld) [Mass/Vol] 13.4 g/dL Normal 12.0-16.0 [facility] Comment on above: Performed By: #### 2 [id number] #### [facility] [address] [place] [address] Lymphocytes (Bld) [#/Vol] 0.7 E9/L Low 1.0-4.0 [facility] Comment on above: Performed By: #### 2 [id number] #### [facility] [address] [place] [address] Lymphocytes/100 WBC (Bld) 5.0 % Low 14.0-50.0 [facility] Comment on above: Performed By: #### 2 [id number] #### [facility] [address] [place] [address] MCH (RBC) [Entitic mass] 29.9 pg Normal 27.0-34.0 [facility] Comment on above: Performed By: #### 2 [id number] #### [facility] [address] [place] [address] MCHC (RBC) [Mass/Vol] 33.7 g/dL Normal 31.4-36.0 [facility] Comment on above: Performed By: #### 2 [id number] #### [facility] [address] [place] [address] MCV (RBC) [Entitic vol] 88.7 fL Normal 80.0-100.0 [facility] Comment on above: Performed By: #### 2 [id number] #### [facility] [address] [place] [address] Monocytes (Bld) [#/Vol] 0.3 E9/L Normal 0.2-1.0 [facility] Comment on above: Performed By: #### 2 [id number] #### [facility] [address] [place] [address] Neutrophils (Bld) [#/Vol] 13.8 E9/L High 2.0-7.5 [facility] Comment on above: Performed By: #### 2 [id number] #### [facility] [address] [place] [address] Neutrophils/100 WBC (Bld) 92.6 % High 36.0-75.0 [facility] Comment on above: Performed By: #### 2 [id number] #### [facility] [address] [place] [address] Platelet 151.0 E9/L Normal 150.0-500.0 [facility] Comment on above: Performed By: #### 2 [id number] #### [facility] [address] [place] [address] Platelet mean volume (Bld) [Entitic vol] 9.1 fL Normal 6.4-10.8 [facility] Comment on above: Performed By: #### 2 [id number] #### [facility] [address] [place] [address] RBC (Bld) [#/Vol] 4.5 E12/L Normal 4.3-5.9 [facility] Comment on above: Performed By: #### 2 [id number] #### [facility] [address] [place] [address] WBC corrected for nucl RBC Auto (Bld) [#/Vol] 14.9 E9/L High 4.0-11.0 [facility] Comment on above: Performed By: #### 2 [id number] #### [facility] [address] [place] [address] CHEMISTRYOrdered By: SYSTEM SYSTEM on 01-20-2024 Albumin [Mass/Vol] 3.5 g/dL Normal 3.3 - 5.0 gm/dL R emisol Chem Albumin/Globulin [Mass ratio] 1.3 {ratio} Normal 1.1 - 2.2 Remisol Chem ALP [Catalytic activity/Vol] 64 [iU]/d Normal 21 - 98 Int._Unit/L Remisol Chem ALT No additional P-5'-P [Catalytic activity/Vol] 26 [iU]/d Normal 6 - 46 Int._Unit/L Remisol Chem Anion gap [Moles/Vol] 15 mmol/L Normal 6 - 16 mEq/L Remisol Chem AST [Catalytic activity/Vol] 45 [iU]/d High 5 - 43 Int._Unit/L Remisol Chem Bilirubin [Mass/Vol] 1.1 mg/dL Normal 0.0 - 1.1 mg/dL Remisol Chem Calcium [Mass/Vol] 8.4 mg/dL Low 8.9 - 11.1 mg/dL Remisol Chem Chloride [Moles/Vol] 104 mmol/L Normal 101 - 111 mmol/ L Remisol Chem CO2 [Moles/Vol] 23 mmol/L Normal 21 - 31 mmol/L Remis ol Chem Creatinine [Mass/Vol] 0.6 mg/dL Normal 0.5 - 1.3 mg/dL Remisol Chem eGFR 100 mL/min/1.73 m2 Normal >=59mL/mi n/1.73 m2 Remisol Chem Globulin (S) [Mass/Vol] 2.6 g/dL Normal 1.4 - 4.0 gm/dL Remisol Chem Glucose [Mass/Vol] 179 mg/dL Normal 55 - 199 mg/dL Re misol Chem Potassium [Moles/Vol] 5.0 mmol/L Normal 3.5 - 5.3 mmol/L Remisol Chem Protein [Mass/Vol] 6.1 g/dL Normal 6.0 - 7.8 gm/dL R emisol Chem Sodium [Moles/Vol] 137 mmol/L Normal 135 - 145 mmol/L Remisol Chem Urea nitrogen [Mass/Vol] 22 mg/dL High 5 - 21 mg/dL Remisol Chem Urea nitrogen/Creatinine [Mass ratio] 37 mg/mg High 10 - 20 Remisol Chem CHEMISTRYOrdered By: Enedina nguyen on 01-20-2024 Lactic Acid Lvl 2.3 mmol/L High 0.5 - 2.2 mmol/L Rem isol Chem Troponin HS 7.00 pg/mL Low 10.10 - 27.10 pg/mL [facility] Comment on above: Interpretive Data: T he 95% CI (Confidence Interval) PPV (Positive Predictive Value) for myocardial infarction in females is 38 pg/mL, in males 51 pg/mL. The results should be used in conjunction with clinical conditions of myocardial infarction. (Access High Sensitivity Troponin I Instructions For Use, Dheeraj Talisha, January 2018) CMPon 01-20-2024 Albumin [Mass/Vol] 3.5 g/dL Normal 3.3-5.0 [facility] Comment on above: Performed By: #### 2 [id number] #### [facility] [address] [place] [address] Albumin/Globulin (S) [Mass conc ratio] 1.3 Normal 1.1-2.2 [facility] Comment on above: Performed By: #### 2 [id number] #### [facility] [address] [place] [address] ALP [Catalytic activity/Vol] 64 Int._Unit/L Normal 21-98 [facility] Comment on above: Performed By: #### 2 [id number] #### [facility] [address] [place] [address] ALT No additional P-5'-P [Catalytic activity/Vol] 26 Int._Unit/L Normal 6-46 [facility] Comment on above: Performed By: #### 2 [id number] #### [facility] [address] [place] [address] Anion gap [Moles/Vol] 15 mmol/L Normal 6-16 [facility] Comment on above: Performed By: #### 2 [id number] #### [facility] [address] [place] [address] AST [Catalytic activity/Vol] 45 Int._Unit/L High 5-43 [facility] Comment on above: Performed By: #### 2 [id number] #### [facility] [address] [place] [address] Bilirubin [Mass/Vol] 1.1 mg/dL Normal 0.0-1.1 [facility] Comment on above: Performed By: #### 2 [id number] #### [facility] [address] [place] [address] Calcium [Mass/Vol] 8.4 mg/dL Low 8.9-11.1 [facility] Comment on above: Performed By: #### 2 [id number] #### [facility] [address] [place] [address] Chloride [Moles/Vol] 104 mmol/L Normal 101-111 [facility] Comment on above: Performed By: #### 2 [id number] #### [facility] [address] [place] [address] CO2 [Moles/Vol] 23 mmol/L Normal 21-31 [facility] Comment on above: Performed By: #### 2 [id number] #### [facility] [address] [place] [address] Creatinine [Mass/Vol] 0.6 mg/dL Normal 0.5-1.3 [facility] Comment on above: Performed By: #### 2 [id number] #### [facility] [address] [place] [address] Globulin (S) [Mass/Vol] 2.6 g/dL Normal 1.4-4.0 [facility] Comment on above: Performed By: #### 2 [id number] #### [facility] [address] [place] [address] Glucose [Mass/Vol] 179 mg/dL Normal 55-199 [facility] Comment on above: Performed By: #### 2 [id number] #### [facility] [address] [place] [address] Potassium [Moles/Vol] 5.0 mmol/L Normal 3.5-5.3 [facility] Comment on above: Performed By: #### 2 [id number] #### [facility] [address] [place] [address] Protein [Mass/Vol] 6.1 g/dL Normal 6.0-7.8 [facility] Comment on above: Performed By: #### 2 [id number] #### [facility] [address] [place] [address] Sodium [Moles/Vol] 137 mmol/L Normal 135-145 [facility] Comment on above: Performed By: #### 2 [id number] #### [facility] [address] [place] [address] Urea nitrogen [Mass/Vol] 22 mg/dL High 5-21 [facility] Comment on above: Performed By: #### 2 [id number] #### [facility] [address] [place] [address] Urea nitrogen/Creatinine [Mass ratio] 37 No Units High 10-20 [facility] Comment on above: Performed By: #### 2 [id number] #### [facility] [address] [place] [address] COAGULATIONOrdered By: Enedina Padgett on 01-20-2024 aPTT Coag (PPP) [Time] 20.4 s Low 25.1 - 36.5 second(s) [facility] Comment on above: Interpretive Data: P arameter 15 days - 4 weeks 1 - [...] the same coagulation reagent and instrumentation as [facility]. Currently there are no coagulation studies available worldwide for children to 14 days, and no normal ranges. Heparin therapeutic range (represented by Anti-Factor Xa activity of 0.2 - 0.4 U/mL) corresponds to PTT of 56.6 - 109.0 sec. INR Coag (PPP) [Relative time] 0.90 {INR} Invalid Interpretation Code [facility] Comment on above: Interpretive Data: I NR results are specifically intended to assess patients stabilized on long-term Anticoagulation therapy suggested INR s Less Intensive Anticoagulation 2.0 3.0 Conventional Range 3.0 4.5 PT Coag (PPP) [Time] 10.1 s Normal 9.4 - 1 2.5 second(s) [facility] Comment on above: Interpretive Data: 1 5 days - 4 weeks 1 - 5 months 6 -11 months 1-5 years 6-10 years 11 -17 years Mean: 11.2 (9.5-12.6) Mean: 11.0 (9.7-12.8) Mean: 11.0 (9.8-13.0) Mean: 11.3 (9.9-13.4) Mean: 11.7 (10.0-14.6) Mean: 11.8 (10.0 - 14.1) Pediatric Reference ranges were obtained from a study by Reuben Robison et al. prepared from 1437 samples obtained at 7 different centers using the same coagulation reagent and instrumentation as [facility]. Currently there are no coagulation studies available worldwide for children to 14 days, and no normal ranges. Lactic Acidon 01-20-2024 Lactic Acid Lvl 2.3 mmol/L High 0.5-2.2 [facility] Comment on above: Performed By: #### 2 [id number] #### [facility] [address] [place] [address] No Panel InformationOrdered By: ANGPROCESSSERVER MICROBIOLOGY on 01-20-2024 Blood Culture Charcoal No growth at 4 days. Final to follow at 7 days. [facility] PT & PTTon 01-20-2024 aPTT Coag (PPP) [Time] 20.4 second(s) Low 25.1-36.5 [facility] Comment on above: Result Comment: Para [...] the same coagulation reagent and instrumentation as [facility]. Currently there are no coagulation studies available worldwide for children to 14 days, and no normal ranges. Heparin therapeutic range (represented by Anti-Factor Xa activity of 0.2 - 0.4 U/mL) corresponds to PTT of 56.6 - 109.0 sec. Performed By: #### 1 [id number] #### [facility] [address] [place] [address] INR Coag (PPP) [Relative time] 0.90 {INR} Invalid Interpretation Code [facility] Comment on above: Result Comment: INR results are specifically intended to assess patients stabilized on long-term Anticoagulation therapy suggested INR?s ?Less Intensive Anticoagulation? 2.0 ? 3.0 Conventional Range 3.0 ? 4.5 Performed By: #### 1 [id number] #### [facility] [address] [place] [address] PT Coag (PPP) [Time] 10.1 second(s) Normal 9.4-12.5 [facility] Comment on above: Result Comment: 15 d ays - 4 weeks 1 - 5 months 6 -11 months 1- 5 years 6-10 years 11 -17 years Mean: 11.2 (9.5-12.6) Mean: 11.0 (9.7-12.8) Mean: 11.0 (9.8-13.0) Mean: 11.3 (9.9-13.4) Mean: 11.7 (10.0-14.6) Mean: 11.8 (10.0 - 14.1) Pediatric Reference ranges were obtained from a study by Reuben Robison et al. prepared from 1437 samples obtained at 7 different centers using the same coagulation reagent and instrumentation as [facility]. Currently there are no coagulation studies available worldwide for children to 14 days, and no normal ranges. Performed By: #### 1 [id number] #### [facility] [address] [place] [id number] Troponinon 01-20-2024 Troponin HS 7.00 pg/mL Low 10.10-27.10 [facility] Comment on above: Result Comment: The 95% CI (Confidence Interval) PPV (Positive Predictive Value) for myocardial infarction in females is 38 pg/mL, in males 51 pg/mL. The results should be used in conjunction with clinical conditions of myocardial infarction. (Access High Sensitivity Troponin I Instructions For Use, [employer], January 2018) Performed By: #### 2 [id number] #### [facility] [address] [place] [address] UA with Cult Rflxon 01-20-20 24 Type of Urine collection method Clean Catch Normal [facility] Comment on above: Performed By: #### 4 [id number] #### [facility] [address] [place] [address] eGFRon 01-20-2024 eGFR 100 mL/min/1.73 m2 Normal >=59 [facility] Comment on above: Order Comment: Order added by Discern Expert. Performed By: #### 1 [id number] #### [facility] [address] [place] [address] Ambulatory Visit Summaryon 0 01-15-2024 Ambulatory Visit Summary Ambulatory Visit Summary CAROLINA GUTIERREZ :1960 Visit Date:01/15/2024 Ambulatory Visit Instructions Your Diagnosis Hospital discharge follow-up Left lower lobe pneumonia BMI 40.0-44.9, adult Class 3 severe obesity due to excess calories with body mass index (BMI) of 40.0 to 44.9 in adult Nonsmoker Your Care Team Attending Physician - Berry Canales Primary Care Physician - Berry Canales This Is Your Medications List albuterol (ProAir RespiClick 90 mcg/inh inhalation powder) albuterol-ipratropiu m (DuoNeb 2.5 mg-0.5 mg/3 mL Soln-Inh) albuterol-ipratropiu m (DuoNeb 2.5 mg-0.5 mg/3 mL Soln-Inh) celecoxib (celecoxib 200 mg Cap) denosumab (Prolia) dextromethorphan-pro methazine (dextromethorphan-pr omethazine 15 mg-6.25 mg/5 mL Oral Syrup 5 mL) fluticasone nasal (Flonase 0.05 mg/inh nasal spray) fluticasone-salmeter ol (Wixela Inhub 250 mcg-50 mcg inhalation powder) furosemide (Lasix 20 mg Tab) guaifenesin (Mucinex 600 mg Tab-ER) homatropine-hydrocod one (homatropine-hydroco done 1.5 mg-5 mg/5 mL oral syrup) levofloxacin (Levaquin) levothyroxine (levothyroxine 137 mcg (0.137 mg) Tab) metronidazole (MetroNIDAZOLE 250 mg Tab) montelukast (montelukast 10 mg Tab) ondansetron (Zofran 4 mg Tab) pantoprazole (Pantoprazole [address] Tab) potassium chloride (Potassium Chloride (Bzm-Svxj-Xyn M20) 20 mEq oral tablet, extended release) predniSONE (predniSONE 20 mg Tab) semaglutide (Ozempic (1 mg dose)) tiotropium (Spiriva Respimat 1.25 mcg/inh inhalation aerosol) upadacitinib (Rinvoq 15 mg oral tablet, extended release) Procedures Performed EGD (esophagogastroduode noscopy) gastric outlet reduction (05/21/2022), Colonoscopy (05/09/2021), EGD - Esophagogastroduoden oscopy (05/09/2021), Cataract extraction, Cholecystectomy, Foot repair, Hysterectomy, Knee replacement, Shoulder, Tonsillectomy and adenoidectomy; age 12 or over. Discharge Vitals Temperature (Temporal Artery) 37.3 ?C Heart Rate (Peripheral) 88 Respiratory Rate 20 Blood Pressure 150/94 Height 149 cm Height 59 in Weight 89.5 kg Weight 196.9 lb BMI 40.31 What to do next Scheduled Follow-Up Appointments Saturday 11:30 AM EDT With: Oswald Curry PA-C Where: [facility] Saturday 10:15 AM EDT With: Maribeth HDZ, Sung Cornell Where: [facility] Normal [facility] Family Medicine Office/Clini c Noteon 01-15-2024 Family Medicine Office/Clinic Note Family Medicine Office/Clinic Note HPI Staff Carolina is a 63 year old female presenting for [facility] hospital follow up TCM: Hospital: [facility] Admission date: 01/08/24 Discharge date: 01/11/24 Symptoms the patient presented with: N/V/D and left sided abd pain Dxed with lactic acidosis and colitis, had bleeding of the bowel felt it was from too many antibiotics but still has some diarrhea. was in the hospital prior to this admission with pneumonia Current concerns: supposed to have shoulder surgery january 27, thinking that should be canceled until she's well. has follow ups with multiple drs. History of Present Illness pt presents today for [facility] follow up. Review of Systems PHQ Score Initial Depression Screen Score: 0 SCORE Physical Exam Vitals & Measurements T: 37.3 ?C(Temporal Artery) HR: 88(Peripheral) RR: 20 BP: 150/94 SpO2: 97% HT: 59 in HT: 149 cm WT: 89.5 kg WT: 196.9 lb BMI: 40.31 General: alert, no acute distress ENMT: oral mucosa moist, no pharyngeal erythema or exudate Cardiovascular: regular rate and rhythm, normal peripheral perfusion Respiratory: Lungs CTA, respirations non labored Extremities: no deformity, no trauma Neurological: oriented x 4, LOC appropriate for age, CN II-XII intact, motor strength equal & normal bilaterally, speech normal JOHANNA lower extremities swollen, right clarke 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 Hospital discharge follow-up (Z09: Encounter for follow-up examination after completed treatment for conditions other than malignant neoplasm) pt was admitted for pneumonia, then readmitted a day later for colitis. continues flagyl. has follow up with cardiology, pulm, and GI. RTC as needed 2. Left lower lobe pneumonia (J18.9: Pneumonia, unspecified organism) lungs are now clear, pt feeling much better 3. BMI 40.0-44.9, adult (Z68.41: Body mass index [BMI] 40.0-44.9, adult) BMI education gvien 4. Class 3 severe obesity due to excess calories with body mass index (BMI) of 40.0 to 44.9 in adult (E66.01: Morbid (severe) obesity due to excess calories) see above 5. Nonsmoker (Z78.9: Other specified health status) continue not smoking Follow-up No qualifying data available Problem List/Past Medical History Ongoing Adult BMI 38.0-38.9 kg/sq m Allergic rhinitis Anemia Annual physical exam Anti-citrullinated protein antibody detected Bilateral otitis media BMI 40.0-44.9, adult Bronchitis Chronic peripheral venous hypertension with lower extremity complication Chronic sinusitis Colitis Cough Derangement of knee Diverticular disease Esophageal web Exposure to COVID-19 virus Fluid level behind tympanic membrane of both ears Gastroesophageal reflux disease without esophagitis Hemorrhoids Hospital discharge follow-up Hx of pulmonary embolus Hypothyroidism Hypoxemia Left lower lobe pneumonia Low hemoglobin Lung nodules Moderate asthma without complication Morbid obesity with [...] Dysphagia Loose stools Nausea Procedure/Surgical History EGD (esophagogastroduode noscopy) gastric outlet reduction (05/21/2022), Colonoscopy (05/09/2021), EGD - Esophagogastroduoden oscopy (05/09/2021), Cataract extraction, Cholecystectomy, Foot repair, Hysterectomy, Knee replacement, Shoulder, Tonsillectomy and adenoidectomy; age 12 or over. Medications celecoxib 200 mg Cap, 200 mg= 1 cap(s), Oral, BID dextromethorphan-pro methazine 15 mg-6.25 mg/5 mL Oral Syrup 5 mL, 5 mL, Oral, q6hr, PRN DuoNeb 2.5 mg-0.5 mg/3 mL Soln-Inh, 3 mL, Inhalation, QID DuoNeb 2.5 mg-0.5 mg/3 mL Soln-Inh, 3 mL, NEB, 6x/Day, 1 refills Flonase 0.05 mg/inh nasal spray, 2 spray(s), Nasal, Daily homatropine-hydrocod one 1.5 mg-5 mg/5 mL oral syrup, 5 mL, Oral, q4hr, PRN Lasix 20 mg Tab, 20 mg= 1 tab(s), Oral, Daily Levaquin, q24hr levothyroxine 137 mcg (0.137 mg) Tab, See Instructions, 4 refills MetroNIDAZOLE 250 mg Tab, 250 mg= 1 tab(s), Oral, TID montelukast 10 mg Tab, See Instructions Mucinex 600 mg Tab-ER, 1200 mg= 2 tab(s), Oral, BID Ozempic (1 mg dose), See Instructions Pantoprazole [address] Tab, 40 mg= 1 tab(s), Oral, Daily, 3 refills Potassium Chloride (Wcs-Pwnt-Xcc M20) 20 mEq oral tablet, extended release, 20 mEq= 1 tab(s), Oral, BID predniSONE 20 mg Tab, 20 mg= 1 tab(s), Oral, As Directed ProAir RespiClick 90 mcg/inh inhalation powder, 2 puff(s), Inhalation, q4hr, PRN, 11 refills Prolia, 60 mg, SubCutaneous, q6mo Rinvoq 15 mg oral tablet, extended release Spiriva Respimat 1.25 mcg/inh inhalation aerosol, 2 inh, Inhalation, Daily W (more content not included)... Normal [facility] Comment on above: Result Comment: Elec tronically Signed By: Berry Canales\.br\Date and Time Signed: 01/15/24 11:02 EDT [facility] 01-13-20 [facility] Case Information Case Priority: None Programs: -- Referral Source: [employer]ile Professional Referral Reason: Care coordination Case Type: Transition Care Management Risk Score: -- Case Status: Enrolled (January 13, 2024) Date Assigned: January 13, 2024 Assigned By: Pop Alvarez Date Enrolled: January 13, 2024 Assigned Primary Personnel: Pop Alvarez Assigned Secondary Personnel: -- Case Physician: Berry Canales Problems Ongoing Adult BMI 38.0-38.9 kg/sq m Allergic rhinitis Anemia Annual physical exam Anti-citrullinated protein antibody detected Bilateral otitis media BMI 40.0-44.9, adult Bronchitis Chronic peripheral venous hypertension with lower extremity complication Chronic sinusitis Colitis Cough Derangement of knee Diverticular disease Esophageal web Exposure to COVID-19 virus Fluid level behind tympanic membrane of both ears Gastroesophageal reflux disease without esophagitis Hemorrhoids Hx of pulmonary embolus Hypothyroidism Hypoxemia Left lower lobe pneumonia Low hemoglobin Lung nodules Moderate asthma without complication Morbid obesity with [...] Dysphagia Loose stools Nausea Procedure/Surgical History EGD (esophagogastroduode noscopy) gastric outlet reduction (05/21/2022), Colonoscopy (05/09/2021), EGD - Esophagogastroduoden oscopy (05/09/2021), Cataract extraction, Cholecystectomy, Foot repair, Hysterectomy, Knee replacement, Shoulder, Tonsillectomy and adenoidectomy; age 12 or over. Home Medications celecoxib 200 mg Cap, 200 mg= 1 cap(s), Oral, BID dextromethorphan-pro methazine 15 mg-6.25 mg/5 mL Oral Syrup 5 mL, 5 mL, Oral, q6hr, PRN DuoNeb 2.5 mg-0.5 mg/3 mL Soln-Inh, 3 mL, Inhalation, QID DuoNeb 2.5 mg-0.5 mg/3 mL Soln-Inh, 3 mL, NEB, 6x/Day, 1 refills Flonase 0.05 mg/inh nasal spray, 2 spray(s), Nasal, Daily homatropine-hydrocod one 1.5 mg-5 mg/5 mL oral syrup, 5 mL, Oral, q4hr, PRN Levaquin, q24hr levothyroxine 137 mcg (0.137 mg) Tab, See Instructions, 4 refills MetroNIDAZOLE 250 mg Tab, 250 mg= 1 tab(s), Oral, TID montelukast 10 mg Tab, See Instructions Mucinex 600 mg Tab-ER, 1200 mg= 2 tab(s), Oral, BID Ozempic (1 mg dose), See Instructions Pantoprazole [address] Tab, 40 mg= 1 tab(s), Oral, Daily, 3 refills predniSONE 20 mg Tab, 20 mg= 1 tab(s), Oral, As Directed ProAir RespiClick 90 mcg/inh inhalation powder, 2 puff(s), Inhalation, q4hr, PRN, 11 refills Prolia, 60 mg, SubCutaneous, q6mo Rinvoq 15 mg oral tablet, extended release Spiriva Respimat 1.25 mcg/inh inhalation aerosol, 2 inh, Inhalation, Daily Wixela Inhub 250 mcg-50 mcg inhalation powder, See Instructions Zofran 4 mg Tab, 4 mg= 1 tab(s), Oral, q6hr, 1 refills Allergies Cefzil (Unknown) Eliquis (Unknown) Keflex (Hives) Pradaxa (Unknown) penicillin G benzathine (Hives) Social History Alcohol - Low Risk, 01/08/2024 Current, Beer, Wine, 1-2 times per year, 05/22/2022 Employment/School - Low Risk, 05/22/2022 Exercise - Does not exercise, 05/22/2022 Home/Environment - Low Risk, 05/22/2022 Nutrition/Health - Low Risk, 05/22/2022 Sexual - No Risk, 05/22/2022 Substance Abuse - Denies Substance Abuse, 10/26/2019 Tobacco - Denies Tobacco Use, 10/26/2019 Never (less than 100 in lifetime) Tobacco Use:. Never Smokeless Tobacco Use:. Cigarettes, Household tobacco concerns: No., 12/31/2023 Family History Cancer: Mother. Diabetes mellitus type 2: Sister. Stroke: Father. Screenings and Assessments 01/13/24 09:05:00 Result Name Value Comment Phone Call Monitoring Consent Agreed to continue call Phone Verification Patient Information Full name, street address and date of verified CM Program Enrollment Provides verbal consent for enrollment Goals and Interventions Care Plan Progress Note Admit Date: 01/08/24 Date of Discharge: 01/11/24 Follow-up appointment scheduled? yes, TCM follow up with [place] [facility] 01/15/24 at 1040 Did you understand your discharge instructions? yes Are you able to follow them? yes Did you receive new medications? yes, metronidazole 250 mg TID x 7 days and complete previously prescribed prednisone taper and Levaquin from [facility] on 01/06 Have you filled the Rx's? yes Are you taking them as prescribed? yes Are you having difficulty eating or swallowing your pills? no Are you having any stomach upset, diarrhea or constipation? some diarrhea, 'not too bad' How are you sleeping? patient arrived at work prior to f/u question Are you having any pain? pa (more content not included)... Normal [facility] Coding Queryon 01-12-2024 Coding Query Coding Query - From: Carolina Flores RN To: Lalo Boyd DO; Sent: 01/10/2024 11:17:32 EDT ! Subject: Coding Query Due Date/Time: 01/11/2024 11:17:00 EDT Caller Name: CAROLINA GUTIERREZ; Caller Number: Janee , Ken[place] Documentation in the medical record indicates that this patient has been admitted with the following BMI: BMI 40.01 While BMI may be coded from dietitian or nursing documentation, the weight-related diagnosis must be coded from physician documentation. BMI is usually calculated as weight (in kg) divided by height (in meters) squared, or kg/m2. The following is also documented in the medical record: BMI 40.01 Based on your medical judgment, can you further clarify the following? Select all that apply: [___]Morbid (severe) obesity due to excess calories (BMI 40 or greater) [___]Other: In responding to this request, please exercise your independent professional judgement. The fact that a question is asked does not imply that any particular answer is desired or expected. Thank you!carolina [id number] - From: Lalo Boyd DO To: Carolina Flores RN; Sent: 01/12/2024 07:16:57 EDT Subject: RE: Coding Query Caller Name: CAROLINA GUTIERREZ; Caller Number: Janee , M Morbid (severe) obesity due to excess calories (BMI 40 or greater) Normal [facility] General Message Officeon [facility] Message Office General Message Office --- --- --- --- --- --- --- --- --- From: Sharron, DirectInbox To: CAROLINA GUTIERREZ Nigel Sent: 01/12/24 02:31:06 AM EDT Subject: Discharge Summary Ready to View A summary regarding your recent visit is available in the Documents section of your health record. Normal [facility] CBC w/ Auto Diffon 4 Basophils/100 WBC (Bld) 0.6 % Normal 0.0-2.0 [facility] Comment on above: Performed By: #### 2 [id number] #### [facility] [address] [place] [address] Basophils/Leukocytes Auto (Bld) [Pure # fraction] 0.1 E9/L Normal 0.0-0.2 [facility] Comment on above: Performed By: #### 2 [id number] #### [facility] [address] [place] [address] Eosinophils (Bld) [#/Vol] 0.0 E9/L Normal 0.0-0.5 [facility] Comment on above: Performed By: #### 2 [id number] #### [facility] [address] [place] [address] Eosinophils/100 WBC (Bld) 0.0 % Normal 0.0-8.0 [facility] Comment on above: Performed By: #### 2 [id number] #### [facility] [address] [place] [address] Erythrocyte distribution width (RBC) [Ratio] 15.9 % High 10.9-14.2 [facility] Comment on above: Performed By: #### 2 [id number] #### [facility] [address] [place] [address] Hematocrit (Bld) [Volume fraction] 34.1 % Normal 34.0-46.0 [facility] Comment on above: Performed By: #### 2 [id number] #### [facility] [address] [place] [address] Hemoglobin (Bld) [Mass/Vol] 11.3 g/dL Low 12.0-16.0 [facility] Comment on above: Performed By: #### 2 [id number] #### [facility] [address] [place] [address] Lymphocytes (Bld) [#/Vol] 0.3 E9/L Low 1.0-4.0 [facility] Comment on above: Performed By: #### 2 [id number] #### [facility] [address] [place] [address] Lymphocytes/100 WBC (Bld) 1.6 % Low 14.0-50.0 [facility] Comment on above: Performed By: #### 2 [id number] #### [facility] [address] [place] [address] MCH (RBC) [Entitic mass] 28.8 pg Normal 27.0-34.0 [facility] Comment on above: Performed By: #### 2 [id number] #### [facility] [address] [place] [address] MCHC (RBC) [Mass/Vol] 33.2 g/dL Normal 31.4-36.0 [facility] Comment on above: Performed By: #### 2 [id number] #### [facility] [address] [place] [address] MCV (RBC) [Entitic vol] 86.9 fL Normal 80.0-100.0 [facility] Comment on above: Performed By: #### 2 [id number] #### [facility] [address] [place] [address] Monocytes (Bld) [#/Vol] 0.5 E9/L Normal 0.2-1.0 [facility] Comment on above: Performed By: #### 2 [id number] #### [facility] [address] [place] [address] Neutrophils (Bld) [#/Vol] 18.4 E9/L High 2.0-7.5 [facility] Comment on above: Performed By: #### 2 [id number] #### [facility] [address] [place] [address] Neutrophils/100 WBC (Bld) 95.1 % High 36.0-75.0 [facility] Comment on above: Performed By: #### 2 [id number] #### [facility] [address] [place] [address] Platelet 184.0 E9/L Normal 150.0-500.0 [facility] Comment on above: Performed By: #### 2 [id number] #### [facility] [address] [place] [address] Platelet mean volume (Bld) [Entitic vol] 7.5 fL Normal 6.4-10.8 [facility] Comment on above: Performed By: #### 2 [id number] #### [facility] [address] [place] [address] RBC (Bld) [#/Vol] 3.9 E12/L Low 4.3-5.9 [facility] Comment on above: Performed By: #### 2 [id number] #### [facility] [address] [place] [address] WBC corrected for nucl RBC Auto (Bld) [#/Vol] 19.4 E9/L High 4.0-11.0 [facility] Comment on above: Result Comment: Merary pheral smear review performed. Performed By: #### 2 [id number] #### [facility] [address] [place] [address] Discharge Note-Nursingon Discharge Note-Nursing Discharge Note-Nursing CAROLINA GUTIERREZ :1960 Visit Date:01/08/2024 Inpatient Discharge Instructions Your Care Team Admitting Physician - Lalo Boyd DO Reason for Your Visit pt reports being [facility] for [facility], this morning began to have L sided abd pain, n/v/d. States still on abx for PNE. VSS, NAD. Your Diagnosis Diarrhea Nausea and vomiting Lactic acidosis Leukocytosis Abdominal pain Diarrhea Nausea and vomiting Tests Performed UA with Cult Rflx -- Results Pending -- CT Abdomen/Pelvis w/ Contrast Please visit your patient portal for your results or contact your primary care physician. This Is Your Medications List albuterol (ProAir RespiClick 90 mcg/inh inhalation powder) albuterol-ipratropiu m (DuoNeb 2.5 mg-0.5 mg/3 mL Soln-Inh) albuterol-ipratropiu m (DuoNeb 2.5 mg-0.5 mg/3 mL Soln-Inh) celecoxib (celecoxib 200 mg Cap) denosumab (Prolia) dextromethorphan-pro methazine (dextromethorphan-pr omethazine 15 mg-6.25 mg/5 mL Oral Syrup 5 mL) fluticasone nasal (Flonase 0.05 mg/inh nasal spray) fluticasone-salmeter ol (Wixela Inhub 250 mcg-50 mcg inhalation powder) guaifenesin (Mucinex 600 mg Tab-ER) homatropine-hydrocod one (homatropine-hydroco done 1.5 mg-5 mg/5 mL oral syrup) levofloxacin (Levaquin) levothyroxine (levothyroxine 137 mcg (0.137 mg) Tab) metronidazole (MetroNIDAZOLE 250 mg Tab) montelukast (montelukast 10 mg Tab) ondansetron (Zofran 4 mg Tab) pantoprazole (Pantoprazole [address] Tab) predniSONE (predniSONE 20 mg Tab) semaglutide (Ozempic (1 mg dose)) tiotropium (Spiriva Respimat 1.25 mcg/inh inhalation aerosol) upadacitinib (Rinvoq 15 mg oral tablet, extended release) Procedure History EGD (esophagogastroduode noscopy) gastric outlet reduction (05/21/2022), Colonoscopy (05/09/2021), EGD - Esophagogastroduoden oscopy (05/09/2021), Cataract extraction, Cholecystectomy, Foot repair, Hysterectomy, Knee replacement, Shoulder, Tonsillectomy and adenoidectomy; age 12 or over. Discharge Vitals Temperature (Oral) 37.0 ?C Heart Rate (Monitored) 94 Respiratory Rate 18 Blood Pressure 138/55 What to do next Instructions From Your Doctor Event Name Event Result Discharge Activity Ambulate as tolerated Discharge Restrictions No restrictions Discharge Diet(s) Calorie Controlled- 1800 Calorie Diet Previously Scheduled Follow-Up Appointments 2023 2:00 PM EDT With: Berry Canales Where: [facility] [place] Normal [facility] HEMATOLOGYOrdered By: SYSTEM SYSTEM on 01-11-2024 Basophils/100 WBC (Bld) 0.6 % Normal 0.0 - 2.0 % Remisol Heme Basophils/Leukocytes Auto (Bld) [Pure # fraction] 0.1 E9/L Normal 0.0 - 0.2 E9/L Rem[facility] Heme Eosinophils (Bld) [#/Vol] 0.0 E9/L Normal 0.0 - 0.5 E9/L Remisol Heme Eosinophils/100 WBC (Bld) 0.0 % Normal 0.0 - 8.0 % Remisol Heme Erythrocyte distribution width (RBC) [Ratio] 15.9 % High 10.9 - 14.2 % Rem[facility] Heme Hematocrit (Bld) [Volume fraction] 34.1 % Normal 34.0 - 46.0 % Rem[facility] Heme Hemoglobin (Bld) [Mass/Vol] 11.3 g/dL Low 12.0 - 16.0 gm/dL Remisol Heme Lymphocytes (Bld) [#/Vol] 0.3 E9/L Low 1.0 - 4.0 E9/L Remisol Heme Lymphocytes/100 WBC (Bld) 1.6 % Low 14.0 - 50.0 % Remisol Heme MCH (RBC) [Entitic mass] 28.8 pg Normal 27.0 - 34.0 pg Remisol Heme MCHC (RBC) [Mass/Vol] 33.2 g/dL Normal 31.4 - 36.0 gm/dL Remisol Heme MCV (RBC) [Entitic vol] 86.9 fL Normal 80.0 - 100.0 fL Remisol Heme Monocytes (Bld) [#/Vol] 0.5 E9/L Normal 0.2 - 1.0 E9/L Remisol Heme Monocytes/100 WBC (Bld) 2.7 % Low 4.0 - 14.0 % Remisol Heme Neutrophils (Bld) [#/Vol] 18.4 E9/L High 2.0 - 7.5 E9/L Remisol Heme Neutrophils/100 WBC (Bld) 95.1 % High 36.0 - 75.0 % Rem[facility] Heme Platelet 184.0 E9/L Normal 150.0 - 500.0 E9/L [facility] Heme Platelet mean volume (Bld) [Entitic vol] 7.5 fL Normal 6.4 - 10.8 fL Remisol Heme RBC (Bld) [#/Vol] 3.9 E12/L Low 4.3 - 5.9 E12/L Re misol Heme WBC corrected for nucl RBC Auto (Bld) [#/Vol] 19.4 E9/L High 4.0 - 11.0 E9/L [facility] Comment on above: Result Comment: Merary pheral smear review performed. Inpatient Clinical Summaryon 01-11-2024 Inpatient Clinical Summary Inpatient Clinical Summary [place] [address] Clinical Summary Person Information: Name: CAROLINA GUTIERREZ Age: 63 Years : 1960 Sex: Female PCP: Berry Canales Marital Status: Phone: [phone] Race: White Ethnicity: Non- or Language: Samoan Visit Id: Visit Reason: Diarrhea; Nausea and vomiting; Abdominal pain; NVD Speciality: Acuity: Enc Type: Inpatient Med Service: Medical Arrival: 01/08/2024 07:50:15 Discharge: Dispo Type: Admitted as IP to this Hosp Address: [address] [place] [id number] Provider Notes: Diagnosis: 3:Lactic acidosis Problems Active Adult BMI 38.0-38.9 kg/sq m Left lower lobe pneumonia 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) Lung nodules Bronchitis Morbid obesity with BMI of 40.0-44.9, adult Fluid level behind tympanic membrane of both ears Right otitis media Low hemoglobin Pre-op exam Bilateral otitis media Wheezing Shortness of breath Nasal congestion Cough Exposure to COVID-19 virus Gastroesophageal reflux disease without esophagitis Hypothyroidism Viral gastritis Colitis Hx of pulmonary embolus Annual physical exam BMI 40.0-44.9, adult Weight loss, unintentional Allergic rhinitis Non-insulin dependent type 2 diabetes mellitus Hypoxemia Diverticular disease Derangement of knee Chronic peripheral venous hypertension with lower extremity complication Chronic sinusitis Rheumatoid arthritis involving multiple sites with positive rheumatoid factor Anemia Hemorrhoids Esophageal web Obesity due to excess calories Oral thrush Moderate asthma without complication Smoking Status: Never Smoker Functional Status: Sensory Deficits: History of Falls: Mobility Assistance Prior to Admission: ADLs: Independent Current Level of Assistance for Self-Care/Mobility: Cognitive Status: Oriented x 3 Allergies penicillin G benzathine (Hives) Keflex (Hives) Pradaxa (Unknown) Cefzil (Unknown) Eliquis (Unknown) Measurements: Height: 149.89 cm Weight: 92.7 kg Blood Pressure: 138 mmHg / 55 mmHg BMI: 40.01 kg/m2 Procedures No Procedures Documented Immunizations No Immunizations Documented This Visit Final Med List: albuterol (ProAir RespiClick 90 mcg/inh inhalation powder) 2 Puffs Inhalation every 4 hours as needed for wheezing or SOB. Refills: 11. albuterol-ipratropiu m (DuoNeb 2.5 mg-0.5 mg/3 mL Soln-Inh) 3 Milliliter Nebulized inhalation (aerosol) 6 times a day. Refills: 1. albuterol-ipratropiu m (DuoNeb 2.5 mg-0.5 mg/3 mL Soln-Inh) 3 Milliliter Inhalation 4 times a day. Refills: 0. celecoxib (celecoxib 200 mg Cap) 1 Capsules By Mouth 2 times a day. denosumab (Prolia) 60 Milligram Subcutaneous every 6 months. dextromethorphan-pro methazine (dextromethorphan-pr omethazine 15 mg-6.25 mg/5 mL Oral Syrup 5 mL) 5 Milliliter By Mouth every 6 hours as needed for cough. Refills: 0. fluticasone nasal (Flonase 0.05 mg/inh nasal spray) 2 Sprays Nasal Inhalation every day. fluticasone-salmeter ol (Wixela Inhub 250 mcg-50 mcg inhalation powder) INHALE 1 PUFF BY MOUTH TWICE DAILY IN THE MORNING AND AT NIGHT. Refills: 1. guaifenesin (Mucinex 600 mg Tab-ER) 2 Tablets By Mouth 2 times a day. Refills: 0. homatropine-hydrocod one (homatropine-hydroco done 1.5 mg-5 mg/5 mL oral syrup) 5 Milliliter By Mouth every 4 hours as needed for cough. Refills: 0. levofloxacin (Levaquin) every 24 hours. levothyroxine (levothyroxine 137 mcg (0.137 mg) Tab) TAKE 1 TABLET BY MOUTH EVERY DAY. Refills: 4. metronidazole (MetroNIDAZOLE 250 mg Tab) 1 Tablets By Mouth 3 times a day for 7 Days. Refills: 0. montelukast (montelukast 10 mg Tab) TAKE 1 TABLET BY MOUTH TWICE A DAY. Refills: 1. ondansetron (Zofran 4 mg Tab) 1 Tablets By Mouth every 6 hours. Refills: 1. pantoprazole (Pantoprazole [address] Tab) 1 Tablets By Mouth every day for 90 Days. Refills: 3. predniSONE (predniSONE 20 mg Tab) 1 Tablets By Mouth As Directed. Take two tabs for 4 days, then one and half tabs for 4 days, then one tab for 4 days then half tab for 4 days then stop. Refills: 0. semaglutide (Ozempic (1 mg dose)) 2 mg SubCutaneous qWeek, ordered by another provider. tiotropium (Spiriva Respimat 1.25 mcg/inh inhalation aerosol) 2 Inhalation Inhalation every day. upadacitinib (Rinvoq 15 mg oral tablet, extended release) Care Team Members: Attending Physician: Lalo Boyd DO Consulting Physician: Referring Physician: Follow up: With: Address: When: Berrynuno Beth [address] [place], [place] [id number] Business (1) 01/16/2024 2:00 PM Type Location Start [facility] Follow Up w/TCM [facility] 01/16/2024 2:00 PM 01/16/2024 2:40 PM Confirmed Patient Education Information: Normal [facility] Inpatient Patient Summaryon 01-11-2024 Inpatient Patient Summary Inpatient Patient Summary [address] [address] Patient Discharge Instructions PERSON INFORMATION Name: CAROLINA GUTIERREZ Date of : 1960 Current Date: 01/11/2024 09:11:29 PHYSICIANS Admitting Physician: Lalo Boyd DO Primary Care Physician: Berry Canales PCP Comment: Discharge Diagnosis: 3:Lactic acidosis Condition at Discharge: Stable CAROLINA GUTIERREZ has been given the following list of follow-up instructions, prescriptions, and patient education materials: PATIENT FOLLOW-UP INFORMATION Diet: Calorie Controlled- 1800 Calorie Diet Discharge Activity: Ambulate as tolerated Discharge Restrictions: No restrictions Wound Care Instructions: Remove Your Dressing In Days Call Your Doctor For: IF UNABLE TO CONTACT YOUR PHYSICIAN AND YOU FEEL IT IS AN EMERGENCY, GO TO THE NEAREST EMERGENCY ROOM OR CALL 911 Home Treatment: Devices/Equipment: None Special Services: Additional Instructions: Primary Care Physician to provide the following pending test results: Follow up: With: Address: When: Berry Beth [address] [place] [id number] Business (1) 01/16/2024 2:00 PM In the event that this physician does not participate in your insurance network, please consult with your insurance company to find a nearby participating provider. Type Location [facility] Follow Up w/TCM [facility] 01/16/2024 2:00 PM 01/16/2024 2:40 PM Confirmed Comment: I, CAROLINA GUTIERREZ, have received the attached patient education materials/instructio ns and have verbalized understanding: Patient Signature Date Clinican/Nurse Signature Date HERE ARE THE MEDICATION CHANGES THAT OCCURRED DURING YOUR HOSPITAL STAY New Medications [id number], [address], [place] [id number], [phone] metronidazole (MetroNIDAZOLE 250 mg Tab) 1 Tablets By Mouth 3 times a day for 7 Days. Refills: 0. Last Dose: Next Dose: Medications to Continue with No Changes Other Medications albuterol (ProAir RespiClick 90 mcg/inh inhalation powder) 2 Puffs Inhalation every 4 hours as needed for wheezing or SOB. Refills: 11. Last Dose: Next Dose: albuterol-ipratropiu m (DuoNeb 2.5 mg-0.5 mg/3 mL Soln-Inh) 3 Milliliter Nebulized inhalation (aerosol) 6 times a day. Refills: 1. Last Dose: Next Dose: albuterol-ipratropiu m (DuoNeb 2.5 mg-0.5 mg/3 mL Soln-Inh) 3 Milliliter Inhalation 4 times a day. Refills: 0. Last Dose: Next Dose: celecoxib (celecoxib 200 mg Cap) 1 Capsules By Mouth 2 times a day. Last Dose: Next Dose: denosumab (Prolia) 60 Milligram Subcutaneous every 6 months. Last Dose: Next Dose: dextromethorphan-pro methazine (dextromethorphan-pr omethazine 15 mg-6.25 mg/5 mL Oral Syrup 5 mL) 5 Milliliter By Mouth every 6 hours as needed for cough. Refills: 0. Last Dose: Next Dose: fluticasone nasal (Flonase 0.05 mg/inh nasal spray) 2 Sprays Nasal Inhalation every day. Last Dose: Next Dose: fluticasone-salmeter ol (Wixela Inhub 250 mcg-50 mcg inhalation powder) INHALE 1 PUFF BY MOUTH TWICE DAILY IN THE MORNING AND AT NIGHT. Refills: 1. Last Dose: Next Dose: guaifenesin (Mucinex 600 mg Tab-ER) 2 Tablets By Mouth 2 times a day. Refills: 0. Last Dose: Next Dose: homatropine-hydrocod one (homatropine-hydroco done 1.5 mg-5 mg/5 mL oral syrup) 5 Milliliter By Mouth every 4 hours as needed for cough. Refills: 0. Last Dose: Next Dose: levofloxacin (Levaquin) every 24 hours. Last Dose: Next Dose: levothyroxine (levothyroxine 137 mcg (0.137 mg) Tab) TAKE 1 TABLET BY MOUTH EVERY DAY. Refills: 4. Last Dose: Next Dose: montelukast (montelukast 10 mg Tab) TAKE 1 TABLET BY MOUTH TWICE A DAY. Refills: 1. Last Dose: Next Dose: ondansetron (Zofran 4 mg Tab) 1 Tablets By Mouth every 6 hours. Refills: 1. Last Dose: Next Dose: pantoprazole (Pantoprazole [address] Tab) 1 Tablets By Mouth every day for 90 Days. Refills: 3. Last Dose: Next Dose: predniSONE (predniSONE 20 mg Tab) 1 Tablets By Mouth As Directed. Take two tabs for 4 days, then one and half tabs for 4 days, then one tab for 4 days then half tab for 4 days then s (more content not included)... Normal [facility] BMPon 01-10-2024 Anion gap [Moles/Vol] 7 mmol/L Normal 6-16 [facility] Comment on above: Performed By: #### 2 [id number] #### [facility] [address] [place] [address] Calcium [Mass/Vol] 7.5 mg/dL Low 8.9-11.1 [facility] Comment on above: Performed By: #### 2 [id number] #### [facility] [address] [place] [address] Chloride [Moles/Vol] 102 mmol/L Normal 101-111 [facility] Comment on above: Performed By: #### 2 [id number] #### [facility] [address] [place] [address] CO2 [Moles/Vol] 30 mmol/L Normal 21-31 [facility] Comment on above: Performed By: #### 2 [id number] #### [facility] [address] [place] [address] Creatinine [Mass/Vol] 0.3 mg/dL Low 0.5-1.3 [facility] Comment on above: Performed By: #### 2 [id number] #### [facility] [address] [place] [address] Glucose [Mass/Vol] 176 mg/dL Normal 55-199 [facility] Comment on above: Performed By: #### 2 [id number] #### [facility] [address] [place] [address] Potassium [Moles/Vol] 4.2 mmol/L Normal 3.5-5.3 [facility] Comment on above: Performed By: #### 2 [id number] #### [facility] [address] [place] [address] Sodium [Moles/Vol] 135 mmol/L Normal 135-145 [facility] Comment on above: Performed By: #### 2 [id number] #### [facility] [address] [place] [address] Urea nitrogen [Mass/Vol] 10 mg/dL Normal 5-21 [facility] Comment on above: Performed By: #### 2 [id number] #### [facility] [address] [place] [address] Urea nitrogen/Creatinine [Mass ratio] 33 No Units High 10-20 [facility] Comment on above: Performed By: #### 2 [id number] #### [facility] [address] [place] [address] CBC w/ Auto Diffon 4 Basophils/100 WBC (Bld) 0.0 % Normal 0.0-2.0 [facility] Comment on above: Performed By: #### 2 [id number] #### [facility] [address] [place] [address] Basophils/Leukocytes Auto (Bld) [Pure # fraction] 0.0 E9/L Normal 0.0-0.2 [facility] Comment on above: Performed By: #### 2 [id number] #### [facility] [address] [place] [address] Eosinophils (Bld) [#/Vol] 0.0 E9/L Normal 0.0-0.5 [facility] Comment on above: Performed By: #### 2 [id number] #### [facility] [address] [place] [address] Eosinophils/100 WBC (Bld) 0.0 % Normal 0.0-8.0 [facility] Comment on above: Performed By: #### 2 [id number] #### [facility] [address] [place] [address] Erythrocyte distribution width (RBC) [Ratio] 15.7 % High 10.9-14.2 [facility] Comment on above: Performed By: #### 2 [id number] #### [facility] [address] [place] [address] Hematocrit (Bld) [Volume fraction] 34.7 % Normal 34.0-46.0 [facility] Comment on above: Performed By: #### 2 [id number] #### [facility] [address] [place] [address] Hemoglobin (Bld) [Mass/Vol] 11.2 g/dL Low 12.0-16.0 [facility] Comment on above: Performed By: #### 2 [id number] #### [facility] [address] [place] [address] Lymphocytes (Bld) [#/Vol] 0.3 E9/L Low 1.0-4.0 [facility] Comment on above: Performed By: #### 2 [id number] #### [facility] [address] [place] [address] Lymphocytes/100 WBC (Bld) 2.0 % Low 14.0-50.0 [facility] Comment on above: Performed By: #### 2 [id number] #### [facility] [address] [place] [address] MCH (RBC) [Entitic mass] 28.4 pg Normal 27.0-34.0 [facility] Comment on above: Performed By: #### 2 [id number] #### [facility] [address] [place] [address] MCHC (RBC) [Mass/Vol] 32.4 g/dL Normal 31.4-36.0 [facility] Comment on above: Performed By: #### 2 [id number] #### [facility] [address] [place] [address] MCV (RBC) [Entitic vol] 87.8 fL Normal 80.0-100.0 [facility] Comment on above: Performed By: #### 2 [id number] #### [facility] [address] [place] [address] Monocytes (Bld) [#/Vol] 0.1 E9/L Low 0.2-1.0 [facility] Comment on above: Performed By: #### 2 [id number] #### [facility] [address] [place] [address] Neutrophils (Bld) [#/Vol] 16.0 E9/L High 2.0-7.5 [facility] Comment on above: Performed By: #### 2 [id number] #### [facility] [address] [place] [address] Neutrophils/100 WBC (Bld) 97.1 % High 36.0-75.0 [facility] Comment on above: Performed By: #### 2 [id number] #### [facility] [address] [place] [address] Platelet mean volume (Bld) [Entitic vol] 7.6 fL Normal 6.4-10.8 [facility] Comment on above: Performed By: #### 2 [id number] #### [facility] [address] [place] [address] Platelets (Bld) [#/Vol] 143.0 E9/L Low 150.0-500.0 [facility] Comment on above: Performed By: #### 2 [id number] #### [facility] [address] [place] [address] RBC (Bld) [#/Vol] 4.0 E12/L Low 4.3-5.9 [facility] Comment on above: Performed By: #### 2 [id number] #### [facility] [address] [place] [address] WBC corrected for nucl RBC Auto (Bld) [#/Vol] 16.5 E9/L High 4.0-11.0 [facility] Comment on above: Performed By: #### 2 [id number] #### [facility] [address] [place] [address] CHEMISTRYOrdered By: SYSTEM SYSTEM on 01-10-2024 Anion gap [Moles/Vol] 7 mmol/L Normal 6 - 16 mEq/L Remisol Chem Calcium [Mass/Vol] 7.5 mg/dL Low 8.9 - 11.1 mg/dL [facility] Chem Chloride [Moles/Vol] 102 mmol/L Normal 101 - 111 mmol/ L [facility] Chem CO2 [Moles/Vol] 30 mmol/L Normal 21 - 31 mmol/L Remis ol Chem Creatinine [Mass/Vol] 0.3 mg/dL Low 0.5 - 1.3 mg/dL Rem[facility] Chem eGFR 118 mL/min/1.73 m2 Normal >=59mL/mi n/1.73 m2 Rem[facility] Chem Glucose [Mass/Vol] 176 mg/dL Normal 55 - 199 mg/dL Re misol Chem Potassium [Moles/Vol] 4.2 mmol/L Normal 3.5 - 5.3 mmol/L Rem[facility] Chem Sodium [Moles/Vol] 135 mmol/L Normal 135 - 145 mmol/L [facility] Chem Urea nitrogen [Mass/Vol] 10 mg/dL Normal 5 - 21 mg/dL [facility] Chem Urea nitrogen/Creatinine [Mass ratio] 33 mg/mg High 10 - 20 [facility] Chem Coding Queryon 01-10-2024 Coding Query Coding Query - From: Carolina Flores RN To: Oliver YOSTLalo; Sent: 01/10/2024 11:17:32 EDT ! Subject: Coding Query Due Date/Time: 01/11/2024 11:17:00 EDT Caller Name: CAROLINA GUTIERREZ; Caller Number: Janee , Kenney Documentation in the medical record indicates that this patient has been admitted with the following BMI: BMI 40.01 While BMI may be coded from dietitian or nursing documentation, the weight-related diagnosis must be coded from physician documentation. BMI is usually calculated as weight (in kg) divided by height (in meters) squared, or kg/m2. The following is also documented in the medical record: BMI 40.01 Based on your medical judgment, can you further clarify the following? Select all that apply: [___]Morbid (severe) obesity due to excess calories (BMI 40 or greater) [___]Other: In responding to this request, please exercise your independent professional judgement. The fact that a question is asked does not imply that any particular answer is desired or expected. Thank you![email or web address] [phone] Normal [facility] HEMATOLOGYOrdered By: SYSTEM SYSTEM on 01-10-2024 Basophils/100 WBC (Bld) 0.0 % Normal 0.0 - 2.0 % Remisol Heme Basophils/Leukocytes Auto (Bld) [Pure # fraction] 0.0 E9/L Normal 0.0 - 0.2 E9/L [facility] Eosinophils (Bld) [#/Vol] 0.0 E9/L Normal 0.0 - 0.5 E9/L Rem[facility] Heme Eosinophils/100 WBC (Bld) 0.0 % Normal 0.0 - 8.0 % Rem[facility] Heme Erythrocyte distribution width (RBC) [Ratio] 15.7 % High 10.9 - 14.2 % [facility] Heme Hematocrit (Bld) [Volume fraction] 34.7 % Normal 34.0 - 46.0 % Remisol Heme Hemoglobin (Bld) [Mass/Vol] 11.2 g/dL Low 12.0 - 16.0 gm/dL Rem[facility] Heme Lymphocytes (Bld) [#/Vol] 0.3 E9/L Low 1.0 - 4.0 E9/L Rem[facility] Heme Lymphocytes/100 WBC (Bld) 2.0 % Low 14.0 - 50.0 % Rem[facility] Heme MCH (RBC) [Entitic mass] 28.4 pg Normal 27.0 - 34.0 pg Remisol Heme MCHC (RBC) [Mass/Vol] 32.4 g/dL Normal 31.4 - 36.0 gm/dL Remisol Heme MCV (RBC) [Entitic vol] 87.8 fL Normal 80.0 - 100.0 fL Remisol Heme Monocytes (Bld) [#/Vol] 0.1 E9/L Low 0.2 - 1.0 E9/L Remisol Heme Monocytes/100 WBC (Bld) 0.9 % Low 4.0 - 14.0 % Rem[facility] Heme Neutrophils (Bld) [#/Vol] 16.0 E9/L High 2.0 - 7.5 E9/L [facility] Heme Neutrophils/100 WBC (Bld) 97.1 % High 36.0 - 75.0 % [facility] Platelet mean volume (Bld) [Entitic vol] 7.6 fL Normal 6.4 - 10.8 fL Rem[facility] Heme Platelets (Bld) [#/Vol] 143.0 E9/L Low 150.0 - 500.0 E9/L Rem[facility] Heme RBC (Bld) [#/Vol] 4.0 E12/L Low 4.3 - 5.9 E12/L Re misol Heme WBC corrected for nucl RBC Auto (Bld) [#/Vol] 16.5 E9/L High 4.0 - 11.0 E9/L Remisol Heme Interdisciplinary Note - Doug e Manageron 01-10-2024 Interdisciplinary Note - Trim Technician Interdisciplinary Note - Trim Technician Patient is awake and alert in bed, await rounds with Dr. Boyd. Pt is from home with family support and spouse will transport at DC. Pt is feeling better and hoping to be able to DC home today. Pt tolerates breakfast without difficulty . Declines any concerns or DC needs. . PCP verified and insurance information reviewed and DME discussed. contact information provided and white board updated. Plan to stay in hospital today and anticipate DC home tomorrow. Normal [facility] Comment on above: Result Comment: Elec tronically Signed By: Shannan BRIGHT, Ashlee\.br\Date and Time Signed: 01/10/24 10:24 EDT eGFRon 01-10-2024 eGFR 118 mL/min/1.73 m2 Normal >=59 [facility] Comment on above: Order Comment: Order added by Discern Expert. Performed By: #### 1 [id number] #### [facility] [address] [place] [address] BMPOrdered By: SYSTEM SYSTEM on 01-09-2024 Anion gap [Moles/Vol] 9 mmol/L Normal 6-16 [facility] Chem Comment on above: Performed By: #### 2 [id number] #### [facility] [address] [place] [address] Chloride [Moles/Vol] 102 mmol/L Normal 101-111 Alec alyx Chem Comment on above: Performed By: #### 2 [id number] #### [facility] [address] [place] [address] CO2 [Moles/Vol] 28 mmol/L Normal 21-31 Remisol C hem Comment on above: Performed By: #### 2 [id number] #### [facility] [address] [place] [address] Creatinine [Mass/Vol] 0.4 mg/dL Low 0.5-1.3 Remisol Chem Comment on above: Performed By: #### 2 [id number] #### [facility] [address] [place] [address] Glucose [Mass/Vol] 139 mg/dL Normal 55-199 Remiso l Chem Comment on above: Performed By: #### 2 [id number] #### [facility] [address] [place] [address] Potassium [Moles/Vol] 3.3 mmol/L Low 3.5-5.3 [facility] Chem Comment on above: Performed By: #### 2 [id number] #### [facility] [address] [place] [address] Sodium [Moles/Vol] 136 mmol/L Normal 135-145 Remiso l Chem Comment on above: Performed By: #### 2 [id number] #### [facility] [address] [place] [address] Urea nitrogen [Mass/Vol] 25 mg/dL High 5-21 [facility] Chem Comment on above: Performed By: #### 2 [id number] #### [facility] [address] [place] [address] Calcium [Mass/Vol] 6.7 mg/dL Abnormal 8.9-11.1 Remiso l Chem Comment on above: Result Comment: Crit ical Result Verified by Repeat Analysis Critical Result S_CA.7 Called to and read back by: DEEPTI LI at: 01/09/2024 07:44:21 by:SUN Performed By: #### 2 [id number] #### [facility] [address] [place] [address] Result Comment: Crit ical Result Verified by Repeat Analysis Critical Result S_CA.7 Called to and read back by: DEEPTI LI at: 01/09/2024 07:44:21 by:SUN BMPon 01-09-2024 Urea nitrogen/Creatinine [Mass ratio] 62 No Units High 10-20 [facility] Comment on above: Performed By: #### 2 [id number] #### [facility] [address] [place] [address] CBC w/ Auto DiffOrdered By: SYSTEM SYSTEM on 01-09-2024 Basophils/100 WBC (Bld) 0.2 % Normal 0.0-2.0 Remisol Heme Comment on above: Performed By: #### 2 [id number] #### [facility] [address] [place] [address] Basophils/Leukocytes Auto (Bld) [Pure # fraction] 0.0 E9/L Normal 0.0-0.2 Remisol Heme Comment on above: Performed By: #### 2 [id number] #### [facility] [address] [place] [address] Eosinophils (Bld) [#/Vol] 0.0 E9/L Normal 0.0-0.5 Remisol Heme Comment on above: Performed By: #### 2 [id number] #### [facility] [address] [place] [address] Eosinophils/100 WBC (Bld) 0.2 % Normal 0.0-8.0 [facility]isol Heme Comment on above: Performed By: #### 2 [id number] #### [facility] [address] [place] [address] Erythrocyte distribution width (RBC) [Ratio] 16.0 % High 10.9-14.2 [facility]isol Heme Comment on above: Performed By: #### 2 [id number] #### [facility] [address] [place] [address] Hematocrit (Bld) [Volume fraction] 38.4 % Normal 34.0-46.0 [facility]isol Heme Comment on above: Performed By: #### 2 [id number] #### [facility] [address] [place] [address] Hemoglobin (Bld) [Mass/Vol] 12.4 g/dL Normal 12.0-16.0 [facility] Heme Comment on above: Performed By: #### 2 [id number] #### [facility] [address] [place] [address] Lymphocytes (Bld) [#/Vol] 0.8 E9/L Low 1.0-4.0 [facility] Heme Comment on above: Performed By: #### 2 [id number] #### [facility] [address] [place] [address] Lymphocytes/100 WBC (Bld) 4.6 % Low 14.0-50.0 [facility] Heme Comment on above: Performed By: #### 2 [id number] #### [facility] [address] [place] [address] MCH (RBC) [Entitic mass] 28.6 pg Normal 27.0-34.0 [facility] Heme Comment on above: Performed By: #### 2 [id number] #### [facility] [address] [place] [address] MCHC (RBC) [Mass/Vol] 32.3 g/dL Normal 31.4-36.0 [facility] Heme Comment on above: Performed By: #### 2 [id number] #### [facility] [address] [place] [address] MCV (RBC) [Entitic vol] 88.3 fL Normal 80.0-100.0 [facility] Heme Comment on above: Performed By: #### 2 [id number] #### [facility] [address] [place] [address] Monocytes (Bld) [#/Vol] 0.6 E9/L Normal 0.2-1.0 [facility]isol Heme Comment on above: Performed By: #### 2 [id number] #### [facility] [address] [place] [address] Neutrophils (Bld) [#/Vol] 16.0 E9/L High 2.0-7.5 [facility] Heme Comment on above: Performed By: #### 2 [id number] #### [facility] [address] [place] [address] Neutrophils/100 WBC (Bld) 91.8 % High 36.0-75.0 [facility] Heme Comment on above: Performed By: #### 2 [id number] #### [facility] [address] [place] [address] Platelet mean volume (Bld) [Entitic vol] 8.0 fL Normal 6.4-10.8 [facility] Heme Comment on above: Performed By: #### 2 [id number] #### [facility] [address] [place] [address] Platelets (Bld) [#/Vol] 149.0 E9/L Low 150.0-500.0 [facility] Heme Comment on above: Performed By: #### 2 [id number] #### [facility] [address] [place] [address] RBC (Bld) [#/Vol] 4.3 E12/L Normal 4.3-5.9 [facility] Heme Comment on above: Performed By: #### 2 [id number] #### [facility] [address] [place] [address] WBC corrected for nucl RBC Auto (Bld) [#/Vol] 17.4 E9/L High 4.0-11.0 [facility] Heme Comment on above: Result Comment: Merary pheral smear review performed. Performed By: #### 2 [id number] #### [facility] [address] [place] [address] CHEMISTRYOrdered By: SYSTEM SYSTEM on 01-09-2024 Urea nitrogen/Creatinine [Mass ratio] 62 mg/mg High 10 - 20 Rem[facility] Chem HEMATOLOGYOrdered By: SYSTEM SYSTEM on 01-09-2024 Monocytes/100 WBC (Bld) 3.2 % Low 4.0 - 14.0 % [facility] Heme Inpatient Clinical Summaryon 01-09-2024 Inpatient Clinical Summary Inpatient Clinical Summary [address] [address] Clinical Summary Person Information: Name: CAROLINA GUTIERREZ Age: 63 Years : 1960 Sex: Female PCP: Berry Canales Marital Status: Phone: [phone] Race: White Ethnicity: Non- or Language: Samoan Visit Id: Visit Reason: Diarrhea; Nausea and vomiting; Abdominal pain; NVD Speciality: Acuity: Enc Type: Inpatient Med Service: Medical Arrival: 01/08/2024 07:50:15 Discharge: Dispo Type: Admitted as IP to this Hosp Address: [address] [place] [id number] Provider Notes: Diagnosis: 3:Lactic acidosis Problems Active Adult BMI 38.0-38.9 kg/sq m Left lower lobe pneumonia 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) Lung nodules Bronchitis Morbid obesity with BMI of 40.0-44.9, adult Fluid level behind tympanic membrane of both ears Right otitis media Low hemoglobin Pre-op exam Bilateral otitis media Wheezing Shortness of breath Nasal congestion Cough Exposure to COVID-19 virus Gastroesophageal reflux disease without esophagitis Hypothyroidism Viral gastritis Colitis Hx of pulmonary embolus Annual physical exam BMI 40.0-44.9, adult Weight loss, unintentional Allergic rhinitis Non-insulin dependent type 2 diabetes mellitus Hypoxemia Diverticular disease Derangement of knee Chronic peripheral venous hypertension with lower extremity complication Chronic sinusitis Rheumatoid arthritis involving multiple sites with positive rheumatoid factor Anemia Hemorrhoids Esophageal web Obesity due to excess calories Oral thrush Moderate asthma without complication Smoking Status: Never Smoker Functional Status: Sensory Deficits: History of Falls: Mobility Assistance Prior to Admission: ADLs: Minimal assistance Current Level of Assistance for Self-Care/Mobility: Cognitive Status: Oriented x 3 Allergies penicillin G benzathine (Hives) Keflex (Hives) Pradaxa (Unknown) Cefzil (Unknown) Eliquis (Unknown) Measurements: Height: 149.89 cm Weight: 92.5 kg Blood Pressure: 120 mmHg / 84 mmHg BMI: 40.01 kg/m2 Procedures No Procedures Documented Immunizations No Immunizations Documented This Visit Final Med List: albuterol (ProAir RespiClick 90 mcg/inh inhalation powder) 2 Puffs Inhalation every 4 hours as needed for wheezing or SOB. Refills: 11. albuterol-ipratropiu m (DuoNeb 2.5 mg-0.5 mg/3 mL Soln-Inh) 3 Milliliter Nebulized inhalation (aerosol) 6 times a day. Refills: 1. albuterol-ipratropiu m (DuoNeb 2.5 mg-0.5 mg/3 mL Soln-Inh) 3 Milliliter Inhalation 4 times a day. Refills: 0. celecoxib (celecoxib 200 mg Cap) 1 Capsules By Mouth 2 times a day. denosumab (Prolia) 60 Milligram Subcutaneous every 6 months. dextromethorphan-pro methazine (dextromethorphan-pr omethazine 15 mg-6.25 mg/5 mL Oral Syrup 5 mL) 5 Milliliter By Mouth every 6 hours as needed for cough. Refills: 0. fluticasone nasal (Flonase 0.05 mg/inh nasal spray) 2 Sprays Nasal Inhalation every day. fluticasone-salmeter ol (Wixela Inhub 250 mcg-50 mcg inhalation powder) INHALE 1 PUFF BY MOUTH TWICE DAILY IN THE MORNING AND AT NIGHT. Refills: 1. guaifenesin (Mucinex 600 mg Tab-ER) 2 Tablets By Mouth 2 times a day. Refills: 0. homatropine-hydrocod one (homatropine-hydroco done 1.5 mg-5 mg/5 mL oral syrup) 5 Milliliter By Mouth every 4 hours as needed for cough. Refills: 0. levofloxacin (Levaquin) every 24 hours. levothyroxine (levothyroxine 137 mcg (0.137 mg) Tab) TAKE 1 TABLET BY MOUTH EVERY DAY. Refills: 4. montelukast (montelukast 10 mg Tab) TAKE 1 TABLET BY MOUTH TWICE A DAY. Refills: 1. ondansetron (Zofran 4 mg Tab) 1 Tablets By Mouth every 6 hours. Refills: 1. pantoprazole (Pantoprazole [address] Tab) 1 Tablets By Mouth every day for 90 Days. Refills: 3. predniSONE (predniSONE 20 mg Tab) 1 Tablets By Mouth As Directed. Take two tabs for 4 days, then one and half tabs for 4 days, then one tab for 4 days then half tab for 4 days then stop. Refills: 0. semaglutide (Ozempic (1 mg dose)) 2 mg SubCutaneous qWeek, ordered by another provider. tiotropium (Spiriva Respimat 1.25 mcg/inh inhalation aerosol) 2 Inhalation Inhalation every day. upadacitinib (Rinvoq 15 mg oral tablet, extended release) Care Team Members: Attending Physician: Lalo Boyd DO Consulting Physician: Referring Physician: Follow up: With: Address: When: Berry Beth [address] [place] [address] Business (1) 01/16/2024 2:[address] [facility] Follow Up w/TCM [facility] 01/16/2024 2:00 PM 01/16/2024 2:20 PM Confirmed Patient Education Information: Normal [facility] Inpatient Patient Summaryon 01-09-2024 Inpatient Patient Summary Inpatient Patient Summary [address] [address] Patient Discharge Instructions PERSON INFORMATION Name: CAROLINA GUTIERREZ Date of : 1960 Current Date: 01/09/2024 13:57:11 PHYSICIANS Admitting Physician: Lalo Boyd DO Primary Care Physician: Berry Canales PCP Comment: Discharge Diagnosis: 3:Lactic acidosis Condition at Discharge: CAROLINA GUTIERREZ has been given the following list of follow-up instructions, prescriptions, and patient education materials: PATIENT FOLLOW-UP INFORMATION Diet: Discharge Activity: Discharge Restrictions: Wound Care Instructions: Remove Your Dressing In Days Call Your Doctor For: IF UNABLE TO CONTACT YOUR PHYSICIAN AND YOU FEEL IT IS AN EMERGENCY, GO TO THE NEAREST EMERGENCY ROOM OR CALL 911 Home Treatment: Devices/Equipment: None Special Services: Additional Instructions: Primary Care Physician to provide the following pending test results: Follow up: With: Address: When: Berrynuno Gellerab [address] [place], [place] [id number] [facility] (1) 01/16/2024 2:00 PM In the event that this physician does not participate in your insurance network, please consult with your insurance company to find a nearby participating provider. Type Location [facility] Follow Up w/TCM [facility] 01/16/2024 2:00 PM 01/16/2024 2:20 PM Confirmed Comment: MATT Maza CHERYL A, have received the attached patient education materials/instructio ns and have verbalized understanding: Patient Signature Date Clinican/Nurse Signature Date HERE ARE THE MEDICATION CHANGES THAT OCCURRED DURING YOUR HOSPITAL STAY Medications to Continue with No Changes Other Medications albuterol (ProAir RespiClick 90 mcg/inh inhalation powder) 2 Puffs Inhalation every 4 hours as needed for wheezing or SOB. Refills: 11. Last Dose: Next Dose: albuterol-ipratropiu m (DuoNeb 2.5 mg-0.5 mg/3 mL Soln-Inh) 3 Milliliter Nebulized inhalation (aerosol) 6 times a day. Refills: 1. Last Dose: Next Dose: albuterol-ipratropiu m (DuoNeb 2.5 mg-0.5 mg/3 mL Soln-Inh) 3 Milliliter Inhalation 4 times a day. Refills: 0. Last Dose: Next Dose: celecoxib (celecoxib 200 mg Cap) 1 Capsules By Mouth 2 times a day. Last Dose: Next Dose: denosumab (Prolia) 60 Milligram Subcutaneous every 6 months. Last Dose: Next Dose: dextromethorphan-pro methazine (dextromethorphan-pr omethazine 15 mg-6.25 mg/5 mL Oral Syrup 5 mL) 5 Milliliter By Mouth every 6 hours as needed for cough. Refills: 0. Last Dose: Next Dose: fluticasone nasal (Flonase 0.05 mg/inh nasal spray) 2 Sprays Nasal Inhalation every day. Last Dose: Next Dose: fluticasone-salmeter ol (Wixela Inhub 250 mcg-50 mcg inhalation powder) INHALE 1 PUFF BY MOUTH TWICE DAILY IN THE MORNING AND AT NIGHT. Refills: 1. Last Dose: Next Dose: guaifenesin (Mucinex 600 mg Tab-ER) 2 Tablets By Mouth 2 times a day. Refills: 0. Last Dose: Next Dose: homatropine-hydrocod one (homatropine-hydroco done 1.5 mg-5 mg/5 mL oral syrup) 5 Milliliter By Mouth every 4 hours as needed for cough. Refills: 0. Last Dose: Next Dose: levofloxacin (Levaquin) every 24 hours. Last Dose: Next Dose: levothyroxine (levothyroxine 137 mcg (0.137 mg) Tab) TAKE 1 TABLET BY MOUTH EVERY DAY. Refills: 4. Last Dose: Next Dose: montelukast (montelukast 10 mg Tab) TAKE 1 TABLET BY MOUTH TWICE A DAY. Refills: 1. Last Dose: Next Dose: ondansetron (Zofran 4 mg Tab) 1 Tablets By Mouth every 6 hours. Refills: 1. Last Dose: Next Dose: pantoprazole (Pantoprazole [address] Tab) 1 Tablets By Mouth every day for 90 Days. Refills: 3. Last Dose: Next Dose: predniSONE (predniSONE 20 mg Tab) 1 Tablets By Mouth As Directed. Take two tabs for 4 days, then one and half tabs for 4 days, then one tab for 4 days then half tab for 4 days then stop. Refills: 0. Last Dose: Next Dose: semaglutide (Ozempic (1 mg dose)) 2 mg SubCutaneous qWeek, ordered by another provider. Last Dose: Next Dose: tiotropium (Spiriva Respimat 1.25 mcg/inh inhalation aerosol) 2 Inhalation Inhalation every day. Last Do (more content not included)... Normal [facility] Interdisciplinary Note - Doug e Manageron 01-09-2024 Interdisciplinary Note - Trim Technician Interdisciplinary Note - Trim Technician Pt is awake and alert in bed, previously rounded with Dr. Boyd, Family present at bedside. Pt is from home with spouse and family support declines any concers or DC needs. Pt is independent with all ADL's, declines any DC needs. CRM following . PCP verified and insurance information reviewed and DME discussed. Contact information provided and white board updated. Normal [facility] Comment on above: Result Comment: Elec tronically Signed By: Shannan BRIGHT, Ashlee\.dusty\Date and Time Signed: 01/09/24 09:47 EDT eGFROrdered By: SHANNA Moulton on 01-09-2024 eGFR 110 mL/min/1.73 m2 Normal >=59 Remiso l Chem Comment on above: Order Comment: Order added by Discern Expert. Performed By: #### 1 [id number] #### [facility] [address] [place] [address] C. diff by PCRon 01-08-2024 Clostridium difficile by PCR Negative Normal Negative [facility] Comment on above: Order Comment: Order added by Discern Expert. Result Comment: This test result should be correlated with clinical presentations and medical history by a healthcare provider to determine its clinical significance. Performed By: #### 4 [id number] #### [facility] [address] [place] [address] CDiff PCRon 01-08-2024 C. difficile toxin A+B Ql (Stl) No, PCR to follow Normal [facility] Comment on above: Performed By: #### 3 [id number] #### [facility] [address] [place] [address] CHEMISTRYOrdered By: SYSTEM SYSTEM on 01-08-2024 Lactic Acid Lvl 1.8 mmol/L Normal 0.5 - 2.2 mmol/L Rem isol Chem Lactic Acid Lvl 2.0 mmol/L Normal 0.5 - 2.2 mmol/L Rem isol Chem Lactic Acid Lvl 2.6 mmol/L High 0.5 - 2.2 mmol/L Rem isol Chem Albumin [Mass/Vol] 3.5 g/dL Normal 3.3 - 5.0 gm/dL R emisol Chem Albumin/Globulin [Mass ratio] 1.3 {ratio} Normal 1.1 - 2.2 Remisol Chem ALP [Catalytic activity/Vol] 74 [iU]/d Normal 21 - 98 Int._Unit/L Remisol Chem ALT No additional P-5'-P [Catalytic activity/Vol] 34 [iU]/d Normal 6 - 46 Int._Unit/L Remisol Chem Anion gap [Moles/Vol] 13 mmol/L Normal 6 - 16 mEq/L [facility] Chem AST [Catalytic activity/Vol] 32 [iU]/d Normal 5 - 43 Int._Unit/L Remisol Chem Bilirubin [Mass/Vol] 1.1 mg/dL Normal 0.0 - 1.1 mg/dL Remisol Chem Bilirubin.direct [Mass/Vol] 0.3 mg/dL Normal 0.0 - 0.4 mg/dL Remisol Chem Bilirubin.indirect [Mass or moles/Vol] 0.8 mg/dL Normal 0.1 - 0.9 mg/dL Remisol Chem Calcium [Mass/Vol] 8.3 mg/dL Low 8.9 - 11.1 mg/dL Rem[facility] Chem Chloride [Moles/Vol] 98 mmol/L Low 101 - 111 mmol/ L Remisol Chem CO2 [Moles/Vol] 29 mmol/L Normal 21 - 31 mmol/L Remis ol Chem Creatinine [Mass/Vol] 0.9 mg/dL Normal 0.5 - 1.3 mg/dL Remisol Chem eGFR 71 mL/min/1.73 m2 Normal >=59mL/min /1.73 m2 Remisol Chem Globulin (S) [Mass/Vol] 2.7 g/dL Normal 1.4 - 4.0 gm/dL Remisol Chem Glucose [Mass/Vol] 169 mg/dL Normal 55 - 199 mg/dL Re misol Chem Lipase [Catalytic activity/Vol] 58 U/L Normal 13 - 58 unit/L Remisol Chem Potassium [Moles/Vol] 3.5 mmol/L Normal 3.5 - 5.3 mmol/L Remisol Chem Protein [Mass/Vol] 6.2 g/dL Normal 6.0 - 7.8 gm/dL R emisol Chem Sodium [Moles/Vol] 136 mmol/L Normal 135 - 145 mmol/L Remisol Chem Urea nitrogen [Mass/Vol] 45 mg/dL High 5 - 21 mg/dL Remisol Chem Urea nitrogen/Creatinine [Mass ratio] 50 mg/mg High 10 - 20 Remisol Chem COAGULATIONOrdered By: Shyanne Jennings on 01-08-2024 aPTT Coag (PPP) [Time] 22.7 s Low 25.1 - 36.5 second(s) [facility] Comment on above: Interpretive Data: Autumn josue 15 days - 4 weeks 1 - 5 months 6 - 11 months 1 - 5 years 6 - 10 years 11 - 17 years PTT Mean: 35.4 (27.6-45.6) Mean: 33.5 (24.8-40.7) Mean: 32.4 (25.1-40.7) Mean: 31.6 (24.0-39.2) Mean: 31.6 (26.9-38.7) Mean: 31.0 (24.6-38.4) Pediatric Reference ranges were obtained from a study by kaycee Lawrence al. prepared from 1437 samples obtained at 7 different centers using the same coagulation reagent and instrumentation as [facility]. Currently there are no coagulation studies available worldwide for children to 14 days, and no normal ranges. Heparin therapeutic range (represented by Anti-Factor Xa activity of 0.2 - 0.4 U/mL) corresponds to PTT of 56.6 - 109.0 sec. INR Coag (PPP) [Relative time] 1.02 {INR} Invalid Interpretation Code [facility] Comment on above: Interpretive Data: I NR results are specifically intended to assess patients stabilized on long-term Anticoagulation therapy suggested INR s Less Intensive Anticoagulation 2.0 3.0 Conventional Range 3.0 4.5 PT Coag (PPP) [Time] 11.4 s Normal 9.4 - 1 2.5 second(s) [facility] Comment on above: Interpretive Data: 1 5 days - 4 weeks 1 - 5 months 6 -11 months 1-5 years 6-10 years 11 -17 years Mean: 11.2 (9.5-12.6) Mean: 11.0 (9.7-12.8) Mean: 11.0 (9.8-13.0) Mean: 11.3 (9.9-13.4) Mean: 11.7 (10.0-14.6) Mean: 11.8 (10.0 - 14.1) Pediatric Reference ranges were obtained from a study by Reuben Robison et al. prepared from 1437 samples obtained at 7 different centers using the same coagulation reagent and instrumentation as [facility]. Currently there are no coagulation studies available worldwide for children to 14 days, and no normal ranges. aPTT Coag (PPP) [Time] see comment Invalid Interpretation Code 25.1 - 36.5 [facility] Comment on above: Result Comment: The specimen for this test has been found unacceptable due to clotting as determined by [id number]. Floridalma Pendleton was contacted and the following determination was made 01/08/2024 08:43:01 EDT. Interpretive Data: Autumn josue 15 days - 4 weeks 1 - 5 months 6 - 11 months 1 - 5 years 6 - 10 years 11 - 17 years PTT Mean: 35.4 (27.6-45.6) Mean: 33.5 (24.8-40.7) Mean: 32.4 (25.1-40.7) Mean: 31.6 (24.0-39.2) Mean: 31.6 (26.9-38.7) Mean: 31.0 (24.6-38.4) Pediatric Reference ranges were obtained from a study by kaycee Lawrence al. prepared from 1437 samples obtained at 7 different centers using the same coagulation reagent and instrumentation as [facility]. Currently there are no coagulation studies available worldwide for children to 14 days, and no normal ranges. Heparin therapeutic range (represented by Anti-Factor Xa activity of 0.2 - 0.4 U/mL) corresponds to PTT of 56.6 - 109.0 sec. INR Coag (PPP) [Relative time] see comment Invalid Interpretation Code [facility] Comment on above: Result Comment: The specimen for this test has been found unacceptable due to clotting as determined by [id number]. Floridalma Pendleton was contacted and the following determination was made 01/08/2024 08:43:01 EDT. Interpretive Data: I NR results are specifically intended to assess patients stabilized on long-term Anticoagulation therapy suggested INR s Less Intensive Anticoagulation 2.0 3.0 Conventional Range 3.0 4.5 PT Coag (PPP) [Time] see comment Invalid Interpretation Code 9.4 - 12.5 [facility] Comment on above: Result Comment: The specimen for this test has been found unacceptable due to clotting as determined by [id number]. Floridalma Pendleton was contacted and the following determination was made 01/08/2024 08:43:01 EDT. Interpretive Data: 1 5 days - 4 weeks 1 - 5 months 6 -11 months 1 5 years 6 10 years 11 -17 years Mean: 11.2 (9.5 12.6) Mean: 11.0 (9.7 12.8) Mean: 11.0 (9.8 13.0) Mean: 11.3 (9.9 13.4) Mean: 11.7 (10.0 14.6) Mean: 11.8 (10.0 - 14.1) Pediatric Reference ranges were obtained from a study by kaycee Lawrence alYury prepared from 1437 samples obtained at 7 different centers using the same coagulation reagent and instrumentation as [facility]. Currently there are no coagulation studies available worldwide for children to 14 days, and no normal ranges. HEMATOLOGYOrdered By: SYSTEM SYSTEM on 01-08-2024 Basophils (Bld) [#/Vol] 0.0 E9/L Normal 0.0 - 0.2 E9/L Remisol Heme Basophils/100 WBC (Bld) 0.0 % Normal 0.0 - 2.0 % Rem[facility] Heme Eosinophils (Bld) [#/Vol] 0.0 E9/L Normal 0.0 - 0.5 E9/L Rem[facility] Heme Eosinophils/100 WBC (Bld) 0.0 % Normal 0.0 - 8.0 [facility] Heme Lymphocytes (Bld) [#/Vol] 0.3 E9/L Low 1.0 - 4.0 E9/L Rem[facility] Heme Lymphocytes/100 WBC (Bld) 1.0 % Low 14.0 - 50.0 % [facility] Heme Monocytes (Bld) [#/Vol] 0.3 E9/L Normal 0.2 - 1.0 E9/L [facility] Heme Monocytes/100 WBC (Bld) 1.0 % Low 4.0 - 14.0 % [facility] Hem[facility] Neutrophils (Bld) [#/Vol] 31.1 E9/L Invalid Interpretation Code Rem[facility] Heme RBC size Nom (Bld) NORMAL *NA* (01/08/24 8:44 AM) Invalid Interpretation Code [facility] Heme Segmented neutrophils/100 WBC (Bld) 98.0 % High 36.0 - 75.0 % [facility] Heme Lactic Acidon 01-08-2024 Lactic Acid Lvl 1.8 mmol/L Normal 0.5-2.2 [facility] Comment on above: Performed By: #### 2 [id number] #### [facility] [address] [place] [address] Lactic Acid Lvl 2.0 mmol/L Normal 0.5-2.2 [facility] Comment on above: Performed By: #### 2 [id number] #### [facility] [address] [place] [address] Lactic Acid Lvl 2.6 mmol/L High 0.5-2.2 [facility] Comment on above: Order Comment: Order added by EKS Rule. (FT_LACTIC_ACID_REFLEX) Adds reflex Lactic Acid 4 hours after initial if result is greater than or equal to 2.0. Performed By: #### 2 [id number] #### [facility] [address] [place] [address] BMPon 01-07-2024 Anion gap [Moles/Vol] 17 mmol/L High 6-16 [facility] Comment on above: Performed By: #### 2 [id number] #### [facility] [address] [place] [address] Calcium [Mass/Vol] 8.2 mg/dL Low 8.9-11.1 [facility] Comment on above: Performed By: #### 2 [id number] #### [facility] [address] [place] [address] Chloride [Moles/Vol] 95 mmol/L Low 101-111 [facility] Comment on above: Performed By: #### 2 [id number] #### [facility] [address] [place] [address] CO2 [Moles/Vol] 27 mmol/L Normal 21-31 [facility] Comment on above: Performed By: #### 2 [id number] #### [facility] [address] [place] [address] Creatinine [Mass/Vol] 0.7 mg/dL Normal 0.5-1.3 [facility] Comment on above: Performed By: #### 2 [id number] #### [facility] [address] [place] [address] Glucose [Mass/Vol] 208 mg/dL High 55-199 [facility] Comment on above: Performed By: #### 2 [id number] #### [facility] [address] [facility] [address] Potassium [Moles/Vol] 3.6 mmol/L Normal 3.5-5.3 [facility] Comment on above: Performed By: #### 2 [id number] #### [facility] [address] [facility] [address] Sodium [Moles/Vol] 135 mmol/L Normal 135-145 [facility] Comment on above: Performed By: #### 2 [id number] #### [facility] [address] [place] [address] Urea nitrogen [Mass/Vol] 31 mg/dL High 5-21 [facility] Comment on above: Performed By: #### 2 [id number] #### [facility] [address] [place] [address] Urea nitrogen/Creatinine [Mass ratio] 44 No Units High 10-20 [facility] Comment on above: Performed By: #### 2 [id number] #### [facility] [address] [place] [address] C Sputumon 01-07-2024 Bacteria identified Respiratory culture Nom (Sput) Microbiology PROCEDURE: Sputum Culture [R1] SOURCE: Sputum BODY SITE: COLLECTED DATE/TIME: 01/05/2024 11:48 EDT RECEIVED DATE/TIME: 01/05/2024 11:53 EDT START DATE/TIME: 01/05/2024 11:53 EDT FREE TEXT SOURCE: Maximino ASHFORD, Maximino ASHFORD, Sereg Olivas FINAL REPORTS Final Report [] Verified Date/Time: 01/07/2024 12:12 EDT 2+ Normal upper respiratory juanjose isolated STAINS Gram Stain Report [] Verified Date/Time: 01/06/2024 08:18 EDT Occasional epithelial cells Occasional White Blood Cells 1+ Gram Positive Cocci Performing Locations R1: This test was performed at: [place], [address] [place] [address], [address]- , , Normal [facility] Comment on above: Performed By: #### 2 [id number] #### [facility] [address] [place] [address] CBC w/ Auto Diffon 4 Basophils/100 WBC (Bld) 0.1 % Normal 0.0-2.0 [facility] Comment on above: Performed By: #### 2 [id number] #### [facility] [address] [place] [address] Basophils/Leukocytes Auto (Bld) [Pure # fraction] 0.0 E9/L Normal 0.0-0.2 [facility] Comment on above: Performed By: #### 2 [id number] #### [facility] [address] [place] [address] Eosinophils (Bld) [#/Vol] 0.0 E9/L Normal 0.0-0.5 [facility] Comment on above: Performed By: #### 2 [id number] #### [facility] [address] [place] [address] Eosinophils/100 WBC (Bld) 0.0 % Normal 0.0-8.0 [facility] Comment on above: Performed By: #### 2 [id number] #### [facility] [address] [place] [address] Erythrocyte distribution width (RBC) [Ratio] 16.1 % High 10.9-14.2 [facility] Comment on above: Performed By: #### 2 [id number] #### [facility] [address] [place] [address] Hematocrit (Bld) [Volume fraction] 40.7 % Normal 34.0-46.0 [facility] Comment on above: Performed By: #### 2 [id number] #### [facility] [address] [place] [address] Hemoglobin (Bld) [Mass/Vol] 13.2 g/dL Normal 12.0-16.0 [facility] Comment on above: Performed By: #### 2 [id number] #### [facility] [address] [place] [address] Lymphocytes (Bld) [#/Vol] 0.6 E9/L Low 1.0-4.0 [facility] Comment on above: Performed By: #### 2 [id number] #### [facility] [address] [place] [address] Lymphocytes/100 WBC (Bld) 3.2 % Low 14.0-50.0 [facility] Comment on above: Performed By: #### 2 [id number] #### [facility] [address] [place] [address] MCH (RBC) [Entitic mass] 28.3 pg Normal 27.0-34.0 [facility] Comment on above: Performed By: #### 2 [id number] #### [facility] [address] [place] [address] MCHC (RBC) [Mass/Vol] 32.4 g/dL Normal 31.4-36.0 [facility] Comment on above: Performed By: #### 2 [id number] #### [facility] [address] [place] [address] MCV (RBC) [Entitic vol] 87.4 fL Normal 80.0-100.0 [facility] Comment on above: Performed By: #### 2 [id number] #### [facility] [address] [place] [address] Monocytes (Bld) [#/Vol] 0.5 E9/L Normal 0.2-1.0 [facility] Comment on above: Performed By: #### 2 [id number] #### [facility] [address] [place] [address] Neutrophils (Bld) [#/Vol] 16.2 E9/L High 2.0-7.5 [facility] Comment on above: Performed By: #### 2 [id number] #### [facility] [address] [place] [address] Neutrophils/100 WBC (Bld) 93.5 % High 36.0-75.0 [facility] Comment on above: Performed By: #### 2 [id number] #### [facility] [address] [place] [address] Platelet mean volume (Bld) [Entitic vol] 7.7 fL Normal 6.4-10.8 [facility] Comment on above: Performed By: #### 2 [id number] #### [facility] [address] [place] [address] Platelets (Bld) [#/Vol] 227.0 E9/L Normal 150.0-500.0 [facility] Comment on above: Performed By: #### 2 [id number] #### [facility] [address] [place] [address] RBC (Bld) [#/Vol] 4.7 E12/L Normal 4.3-5.9 [facility] Comment on above: Performed By: #### 2 [id number] #### [facility] [address] [place] [address] WBC corrected for nucl RBC Auto (Bld) [#/Vol] 17.3 E9/L High 4.0-11.0 [facility] Comment on above: Performed By: #### 2 [id number] #### [facility] [address] [place] [address] CHEMISTRYOrdered By: Lab ROP User on 01-07-2024 Glucose [Mass/Vol] 266 mg/dL High 55 - 99 mg/dL [facility] POC Subsection Comment on above: Result Comment: Sugar muhammad RN/ POC Device SN [id number] 1 Invalid Interpretation Code [facility] POC Subsection POC User ID [id number] 1 Invalid Interpretation Code [facility] POC Subsection POC Username CORTNEY LOPEZ Invalid Interpretation Code [facility] POC Subsection Glucose [Mass/Vol] 147 mg/dL High 55 - 99 mg/dL [facility] C POC Subsection POC Device SN [id number] 1 Invalid Interpretation Code [facility] POC Subsection POC User ID [id number] 1 Invalid Interpretation Code [facility] POC Subsection POC Username CORTNEY LOPEZ Invalid Interpretation Code [facility] POC Subsection CHEMISTRYOrdered By: SYSTEM SYSTEM on 01-07-2024 Anion gap [Moles/Vol] 17 mmol/L High 6 - 16 mEq/L [facility] Chem Calcium [Mass/Vol] 8.2 mg/dL Low 8.9 - 11.1 mg/dL [facility] Chem Chloride [Moles/Vol] 95 mmol/L Low 101 - 111 mmol/ L [facility] Chem CO2 [Moles/Vol] 27 mmol/L Normal 21 - 31 mmol/L Remis ol Chem Creatinine [Mass/Vol] 0.7 mg/dL Normal 0.5 - 1.3 mg/dL [facility] Chem eGFR 96 mL/min/1.73 m2 Normal >=59mL/min /1.73 m2 [facility] Chem Glucose [Mass/Vol] 208 mg/dL High 55 - 199 mg/dL Re misol Chem Magnesium [Mass/Vol] 2.2 mg/dL Normal 1.3 - 2.4 mg/dL [facility] Chem Potassium [Moles/Vol] 3.6 mmol/L Normal 3.5 - 5.3 mmol/L [facility] Sodium [Moles/Vol] 135 mmol/L Normal 135 - 145 mmol/L [facility] Urea nitrogen [Mass/Vol] 31 mg/dL High 5 - 21 mg/dL [facility] Urea nitrogen/Creatinine [Mass ratio] 44 mg/mg High 10 - 20 [facility] Capillary Glucose POCon Glucose [Mass/Vol] 147 mg/dL High 55-99 [facility] Comment on above: Performed By: #### 2 [id number] #### [facility] [address] [place] [address] HEMATOLOGYOrdered By: SYSTEM SYSTEM on 01-07-2024 Basophils/100 WBC (Bld) 0.1 % Normal 0.0 - 2.0 % [facility]e Basophils/Leukocytes Auto (Bld) [Pure # fraction] 0.0 E9/L Normal 0.0 - 0.2 E9/L [facility] Eosinophils (Bld) [#/Vol] 0.0 E9/L Normal 0.0 - 0.5 E9/L [facility] Eosinophils/100 WBC (Bld) 0.0 % Normal 0.0 - 8.0 % [facility] Erythrocyte distribution width (RBC) [Ratio] 16.1 % High 10.9 - 14.2 % [facility] Hematocrit (Bld) [Volume fraction] 40.7 % Normal 34.0 - 46.0 % [facility] Hemoglobin (Bld) [Mass/Vol] 13.2 g/dL Normal 12.0 - 16.0 gm/dL [facility] Lymphocytes (Bld) [#/Vol] 0.6 E9/L Low 1.0 - 4.0 E9/L [facility] Lymphocytes/100 WBC (Bld) 3.2 % Low 14.0 - 50.0 % [facility] MCH (RBC) [Entitic mass] 28.3 pg Normal 27.0 - 34.0 pg [facility] MCHC (RBC) [Mass/Vol] 32.4 g/dL Normal 31.4 - 36.0 gm/dL [facility] MCV (RBC) [Entitic vol] 87.4 fL Normal 80.0 - 100.0 fL [facility] Monocytes (Bld) [#/Vol] 0.5 E9/L Normal 0.2 - 1.0 E9/L [facility] Monocytes/100 WBC (Bld) 3.2 % Low 4.0 - 14.0 % [facility] Neutrophils (Bld) [#/Vol] 16.2 E9/L High 2.0 - 7.5 E9/L [facility] Neutrophils/100 WBC (Bld) 93.5 % High 36.0 - 75.0 % [facility] Platelet mean volume (Bld) [Entitic vol] 7.7 fL Normal 6.4 - 10.8 fL [facility] Platelets (Bld) [#/Vol] 227.0 E9/L Normal 150.0 - 500.0 E9/L [facility] RBC (Bld) [#/Vol] 4.7 E12/L Normal 4.3 - 5.9 E12/L Re misol Heme WBC corrected for nucl RBC Auto (Bld) [#/Vol] 17.3 E9/L High 4.0 - 11.0 E9/L [facility] Interdisciplinary Note - Doug e Manageron 01-07-2024 Interdisciplinary Note - Trim Technician Interdisciplinary Note - Trim Technician CRM to room to discuss DC planning. Patient is awake, alert and oriented. Patient is from home with her spouse. [place] transport [place]. Patient verified PCP, DME and insurance. Patient is inpatient for [facility]. Patient is assigned to Dr Chapman, see notes. Patient will be seen by Cardiology and pulmonology. Patient got ECHO on 01/05. Patient blood cx negative. Patient has declined at this time needs for HH, PM or DME. Patient was provided CRM contact, tyson board updated. CRM following. Patient is a possible DC today or 710 CRM will get updates at 10 Am from hospitalist [facility] Comment on above: Result Comment: Elec tronically Signed By: Consuelo Richards\.br\Date and Time Signed: 01/07/24 09:22 EDT Magnesiumon 01-07-2024 Magnesium [Mass/Vol] 2.2 mg/dL Normal 1.3-2.4 [facility] Comment on above: Performed By: #### 2 [id number] #### [facility] [address] [place] [address] eGFRon 01-07-2024 eGFR 96 mL/min/1.73 m2 Normal >=59 [facility] Comment on above: Order Comment: Order added by Discern Expert. Performed By: #### 1 [id number] #### [facility] [address] [place] [address] BMPon 01-06-2024 Anion gap [Moles/Vol] 13 mmol/L Normal 6-16 [facility] Comment on above: Performed By: #### 2 [id number] #### [facility] [address] [place] [address] Calcium [Mass/Vol] 8.1 mg/dL Low 8.9-11.1 [facility] Comment on above: Performed By: #### 2 [id number] #### [facility] [address] [place] [address] Chloride [Moles/Vol] 99 mmol/L Low 101-111 [facility] Comment on above: Performed By: #### 2 [id number] #### [facility] [address] [place] [address] CO2 [Moles/Vol] 29 mmol/L Normal 21-31 [facility] Comment on above: Performed By: #### 2 [id number] #### [facility] [address] [place] [address] Creatinine [Mass/Vol] 0.7 mg/dL Normal 0.5-1.3 [facility] Comment on above: Performed By: #### 2 [id number] #### [facility] [address] [place] [address] Glucose [Mass/Vol] 183 mg/dL Normal 55-199 [facility] Comment on above: Performed By: #### 2 [id number] #### [facility] [address] [place] [address] Potassium [Moles/Vol] 3.8 mmol/L Normal 3.5-5.3 [facility] Comment on above: Performed By: #### 2 [id number] #### [facility] [address] [place] [address] Sodium [Moles/Vol] 137 mmol/L Normal 135-145 [facility] Comment on above: Performed By: #### 2 [id number] #### [facility] [address] [place] [address] Urea nitrogen [Mass/Vol] 28 mg/dL High 5-21 [facility] Comment on above: Performed By: #### 2 [id number] #### [facility] [address] [place] [address] Urea nitrogen/Creatinine [Mass ratio] 40 No Units High 10-20 [facility] Comment on above: Performed By: #### 2 [id number] #### [facility] [address] [place] [address] BNPon 01-06-2024 Int Ctr BNP Pass Normal [facility] Comment on above: Performed By: #### 1 [id number] #### [facility] [address] [place] [address] Natriuretic peptide B (Bld) [Mass/Vol] 6 pg/mL Normal 5-80 [facility] Comment on above: Performed By: #### 1 [id number] #### [facility] [address] [place] [address] CBC w/ Auto Diffon 4 Basophils/100 WBC (Bld) 0.1 % Normal 0.0-2.0 [facility] Comment on above: Performed By: #### 2 [id number] #### [facility] [address] [place] [address] Basophils/Leukocytes Auto (Bld) [Pure # fraction] 0.0 E9/L Normal 0.0-0.2 [facility] Comment on above: Performed By: #### 2 [id number] #### [facility] [address] [place] [address] Eosinophils (Bld) [#/Vol] 0.0 E9/L Normal 0.0-0.5 [facility] Comment on above: Performed By: #### 2 [id number] #### [facility] [address] [place] [address] Eosinophils/100 WBC (Bld) 0.0 % Normal 0.0-8.0 [facility] Comment on above: Performed By: #### 2 [id number] #### [facility] [address] [place] [address] Erythrocyte distribution width (RBC) [Ratio] 16.0 % High 10.9-14.2 [facility] Comment on above: Performed By: #### 2 [id number] #### [facility] [address] [place] [address] Hematocrit (Bld) [Volume fraction] 38.7 % Normal 34.0-46.0 [facility] Comment on above: Performed By: #### 2 [id number] #### [facility] [address] [place] [address] Hemoglobin (Bld) [Mass/Vol] 12.9 g/dL Normal 12.0-16.0 [facility] Comment on above: Performed By: #### 2 [id number] #### [facility] [address] [place] [address] Lymphocytes (Bld) [#/Vol] 0.8 E9/L Low 1.0-4.0 [facility] Comment on above: Performed By: #### 2 [id number] #### [facility] [address] [place] [address] Lymphocytes/100 WBC (Bld) 5.1 % Low 14.0-50.0 [facility] Comment on above: Performed By: #### 2 [id number] #### [facility] [address] [place] [address] MCH (RBC) [Entitic mass] 29.2 pg Normal 27.0-34.0 [facility] Comment on above: Performed By: #### 2 [id number] #### [facility] [address] [place] [address] MCHC (RBC) [Mass/Vol] 33.4 g/dL Normal 31.4-36.0 [facility] Comment on above: Performed By: #### 2 [id number] #### [facility] [address] [place] [address] MCV (RBC) [Entitic vol] 87.4 fL Normal 80.0-100.0 [facility] Comment on above: Performed By: #### 2 [id number] #### [facility] [address] [place] [address] Monocytes (Bld) [#/Vol] 0.4 E9/L Normal 0.2-1.0 [facility] Comment on above: Performed By: #### 2 [id number] #### [facility] [address] [place] [address] Neutrophils (Bld) [#/Vol] 15.3 E9/L High 2.0-7.5 [facility] Comment on above: Performed By: #### 2 [id number] #### [facility] [address] [place] [address] Neutrophils/100 WBC (Bld) 92.1 % High 36.0-75.0 [facility] Comment on above: Performed By: #### 2 [id number] #### [facility] [address] [place] [address] Platelet 239.0 E9/L Normal 150.0-500.0 [facility] Comment on above: Performed By: #### 2 [id number] #### [facility] [address] [place] [address] Platelet mean volume (Bld) [Entitic vol] 7.4 fL Normal 6.4-10.8 [facility] Comment on above: Performed By: #### 2 [id number] #### [facility] [address] [place] [address] RBC (Bld) [#/Vol] 4.4 E12/L Normal 4.3-5.9 [facility] Comment on above: Performed By: #### 2 [id number] #### [facility] [address] [place] [address] WBC corrected for nucl RBC Auto (Bld) [#/Vol] 16.6 E9/L High 4.0-11.0 [facility] Comment on above: Result Comment: Merary pheral smear review performed. Performed By: #### 2 [id number] #### [facility] [address] [place] [address] CHEMISTRYOrdered By: Lab ROP User on 01-06-2024 Glucose [Mass/Vol] 196 mg/dL High 55 - 99 mg/dL FT C POC Subsection Comment on above: Result Comment: Sugar muhammad RN/ POC Device SN [id number] 1 Invalid Interpretation Code [facility] POC Subsection POC User ID [id number] 1 Invalid Interpretation Code [facility] POC Subsection POC Username PITA THURSTON Invalid Interpretation Code [facility] POC Subsection CHEMISTRYOrdered By: SYSTEM SYSTEM on 01-06-2024 Anion gap [Moles/Vol] 13 mmol/L Normal 6 - 16 mEq/L [facility] Chem Calcium [Mass/Vol] 8.1 mg/dL Low 8.9 - 11.1 mg/dL [facility] Chloride [Moles/Vol] 99 mmol/L Low 101 - 111 mmol/ L [facility] CO2 [Moles/Vol] 29 mmol/L Normal 21 - 31 mmol/L Remis ol Chem Creatinine [Mass/Vol] 0.7 mg/dL Normal 0.5 - 1.3 mg/dL [facility] Chem eGFR 96 mL/min/1.73 m2 Normal >=59mL/min /1.73 m2 [facility] Chem Glucose [Mass/Vol] 183 mg/dL Normal 55 - 199 mg/dL Re misol Chem Potassium [Moles/Vol] 3.8 mmol/L Normal 3.5 - 5.3 mmol/L [facility] Sodium [Moles/Vol] 137 mmol/L Normal 135 - 145 mmol/L [facility] Urea nitrogen [Mass/Vol] 28 mg/dL High 5 - 21 mg/dL [facility] Urea nitrogen/Creatinine [Mass ratio] 40 mg/mg High 10 - 20 [facility] CHEMISTRYOrdered By: Alesia Wardery on 01-06-2024 Natriuretic peptide B (Bld) [Mass/Vol] 6 pg/mL Normal 5 - 80 pg/mL [facility] Capillary Glucose POCon Glucose [Mass/Vol] 196 mg/dL High 55-99 [facility] Comment on above: Result Comment: Sugar WALKER Performed By: #### 2 [id number] #### [facility] [address] [place] [address] Glucose [Mass/Vol] 226 mg/dL High 55-99 [facility] Comment on above: Result Comment: Zari francie Meter Performed By: #### 2 [id number] #### [facility] [address] [place] [address] Glucose [Mass/Vol] 159 mg/dL High 55-99 [facility] Comment on above: Result Comment: Sugar WALKER Performed By: #### 2 [id number] #### [facility] [address] [place] [address] Glucose [Mass/Vol] 152 mg/dL High 55-99 [facility] Comment on above: Result Comment: Sugar WALKER Performed By: #### 2 [id number] #### [facility] [address] [place] [address] ED Note-Physicianon 01-06-20 ED Note-Physician ED Note-Physician Basic Information Time Seen: Ady SAMANO, Keisha Gomez 01/04/2024 16:15 Chief Complaint shortness of breath and cough that has been going on fot a week but has gotten worse today. hx asthma, denies cp and cardiac hx History of Present Illness Patient is a 63-year-old female with a history of asthma, diabetes, hypothyroidism and pulmonary embolism who presents to the ED with worsening shortness of breath and a cough that began 1 week ago. Patient states she was in the ED 6 days ago where she was diagnosed with pneumonia and placed on doxycycline and prednisone. Patient states her symptoms initially improved but began to worsen a couple of days ago. She notes she has used breathing treatments at home with some relief in symptoms. Patient notes she is still continuing to have a cough that is predominantly dry but occasionally produces yellow phlegm. Patient states she has also noticed swelling in her lower extremities bilaterally that began approximately 5 days ago. Patient states she has taken [id number] diuretics with minimal relief and swelling. Patient states that she had a skin biopsy done a couple of weeks ago that has since began to weep clear fluid as her legs have swelled. She denies a cardiac history. She denies chest pain, abdominal pain, or any known fevers. Patient notes she has been compliant with her antibiotics. Review of Systems A 10 point review of systems is negative except as noted above. Medical and Surgical History: Reviewed and noted Social history: Lives at home Family History: Reviewed. Tobacco: Denies Physical Exam Vitals & Measurements T: 36.7 ?C(Oral) HR: 111(Peripheral) RR: 18 BP: 129/76 SpO2: 93% HT: 149 cm WT: 90.2 kg BMI: 40.63 General: The patient appears well and in no apparent distress. Patient is resting comfortably on cart. Skin: Warm, dry, no pallor noted. Head: Normocephalic, atraumatic Eye: PERRLA, EOMI ENT: Moist mucus membranes, no pharyngeal erythema or edema Cardiovascular: Regular rate normal peripheral perfusion Respiratory: Expiratory wheezes bilaterally, no respiratory distress, increased work of breathing Musculoskeletal: normal ROM, no deformity, pitting edema in the lower extremities bilaterally with mild diffuse erythema, neurovascularly intact GI: Soft no obvious distention. No rebound or rigidity. No guarding. No tenderness. Neurological: A&O moves all extremities equal strength and symmetry Psychiatric: Cooperative and appropriate Medical Decision Making Patient is a 63-year-old female with a history of asthma, diabetes, hypothyroidism and pulmonary embolism who presents to the ED with worsening shortness of breath and a cough that began 1 week ago. A chart review was conducted. Patient originally was seen at an urgent care on 12/26 where she was diagnosed with acute bronchitis with asthma and was prescribed doxycycline and prednisone. She presented to the ED on 12/28 with worsening symptoms where she was prescribed Levaquin, prednisone, and homatropine-hydrocod one for pneumonia. At this time she had a WBC of 16.9 with chest x-ray revealing left lower lobe infiltrate. Patient denied admission for IV antibiotics at this time. Blood culture from 12/28 showed group B strep. Patient followed up with her family provider on 12/30 in which she was given 60 mg of Kenalog and homatropine-hydrocod one. On arrival patient had an SpO2 of 93%. This has improved to 95% on room air following 2 breathing treatments. EKG shows sinus tachycardia with a rate of 114 bpm. Lab work today reveals a WBC of 18.9, which could be elevated due to her recent steroid use. ABG shows a pH of 7.47, pCO2 of 59.6 and bicarb of 26.7. Patient has a BUN of 28 today which is increased from 21 on 12/28. Lactic acid is elevated at 2.7. Patient was not placed on fluids at this time due to new lower extremity pitting edema. Patient states she took prednisone today, thus was not given a steroid in the ED. CTA chest shows mild dependent atelectasis but is negative for PE. On reevaluation patient had an SpO2 of 89% on room air. She was placed on 2 L nasal cannula in which her SpO2 improved to 95%. Per nursing staff, the patient ambulated without oxygen in which her SpO2 decreased to 82%. I discussed the case with the hospitalist who is admitting the patient for further management of care. Patient is agreeable with the plan and all questions were answered. Assessment/Plan Acidosis, lactic (E87.20: Acidosis, unspecified) Asthma exacerbation (J45.901: Unspecified asthma with (acute) exacerbation) CAP (community acquired pneumonia) (J18.9: Pneumonia, unspecified organism) Hypoxia (R09.02: Hypoxemia) Orders: albuterol-ipratropiu m, 3 mL, Soln-Inh, NEB, Once, Stop date 01/04/24 16:30:00 EDT, STAT, Start date 01/04/24 16:30:00 EDT albuterol-ipratropiu m, 3 mL, Soln-Inh, NEB, Once, Stop date 01/04/24 17:20:00 EDT, STAT, Start date 01/04/24 17:20:00 EDT B-Type Natriuretic Peptide Basic Metabolic Panel Blood Cultur (more content not included)... Normal [facility] Comment on above: Result Comment: Elec tronically Signed By: Ady SAMANO, Keisha Gomez\.br\Date and Time Signed: 01/04/24 20:34 EDT\.br\Electronically Co-Signed By: Keisha Garsia PA-C\.br\Date and Time Co-Signed: 01/04/24 20:35 EDT\.br\Electronically Co-Signed By: Naveen Martin DO\.br\Date and Time Co-Signed: 01/06/24 07:04 EDT HEMATOLOGYOrdered By: SYSTEM SYSTEM on 01-06-2024 Basophils/100 WBC (Bld) 0.1 % Normal 0.0 - 2.0 % [facility] Basophils/Leukocytes Auto (Bld) [Pure # fraction] 0.0 E9/L Normal 0.0 - 0.2 E9/L [facility] Eosinophils (Bld) [#/Vol] 0.0 E9/L Normal 0.0 - 0.5 E9/L [facility] Eosinophils/100 WBC (Bld) 0.0 % Normal 0.0 - 8.0 % [facility] Erythrocyte distribution width (RBC) [Ratio] 16.0 % High 10.9 - 14.2 % [facility] Hematocrit (Bld) [Volume fraction] 38.7 % Normal 34.0 - 46.0 % [facility] Hemoglobin (Bld) [Mass/Vol] 12.9 g/dL Normal 12.0 - 16.0 gm/dL [facility] Lymphocytes (Bld) [#/Vol] 0.8 E9/L Low 1.0 - 4.0 E9/L [facility] Lymphocytes/100 WBC (Bld) 5.1 % Low 14.0 - 50.0 % [facility] MCH (RBC) [Entitic mass] 29.2 pg Normal 27.0 - 34.0 pg [facility] MCHC (RBC) [Mass/Vol] 33.4 g/dL Normal 31.4 - 36.0 gm/dL [facility] MCV (RBC) [Entitic vol] 87.4 fL Normal 80.0 - 100.0 fL [facility] Monocytes (Bld) [#/Vol] 0.4 E9/L Normal 0.2 - 1.0 E9/L [facility] Monocytes/100 WBC (Bld) 2.7 % Low 4.0 - 14.0 % [facility] Neutrophils (Bld) [#/Vol] 15.3 E9/L High 2.0 - 7.5 E9/L [facility] Neutrophils/100 WBC (Bld) 92.1 % High 36.0 - 75.0 % [facility] Platelet 239.0 E9/L Normal 150.0 - 500.0 E9/L [facility] Platelet mean volume (Bld) [Entitic vol] 7.4 fL Normal 6.4 - 10.8 fL [facility] RBC (Bld) [#/Vol] 4.4 E12/L Normal 4.3 - 5.9 E12/L Re misol Heme WBC corrected for nucl RBC Auto (Bld) [#/Vol] 16.6 E9/L High 4.0 - 11.0 E9/L [facility] Comment on above: Result Comment: Merary pheral smear review performed. [id number] 01-06-2024 HbA1c (Bld) [Mass fraction] 6.2 % High <=5.9 [facility] Comment on above: Order Comment: Order placed by EKM rule. [email or web address] Performed By: #### 7 [id number] #### [facility] [address] [place] [address] Interdisciplinary Note - Doug e Manageron 01-06-2024 Interdisciplinary Note - Trim Technician Interdisciplinary Note - Trim Technician CRM to room to discuss DC planning. Patient is awake, alert and oriented. Patient is from home with her spouse. He will transport [place]. Patient verified PCP, DME and insurance. Patient is inpatient for [facility]. Patient is assigned to Serge Atkinson NP, see notes. Patient will be seen by Cardiology and pulmonology. Patient will get an ECHO. Patient blood cx negative. Patient has declined at this time needs for HH, PM or DME. Patient was provided CRM contact, white board updated. CRM following. Patient is a possible DC today or 01/06 Normal [facility] Comment on above: Result Comment: Elec tronically Signed By: Consuelo Richards\.br\Date and Time Signed: 01/06/24 10:59 EDT Interdisciplinary Note - Soc ial Workeron 01-06-2024 Interdisciplinary Note - Medical Review Coordinator Interdisciplinary Note - Medical Review Coordinator There was a system generated request to review Advance Directives with the patient. SW met with the patient and reviewed the protocol in completing the document . She shared that she needs to decide who will be her POA. She did take a copy to complete once a decision has been made about her alternates, and will bring into [facility] to place on file. SW will remain available. Normal [facility] Respiratory Panel by PCRon 0 01-06-2024 Adenovirus DNA BRIAN+non-probe Ql (Nph) Not detected Normal [facility] Comment on above: Result Comment: Test ing was performed using nucleic acid amplification including Influenza A, Influenza A H1, Influenza A H3, Influenza B, RSV A, RSV B, Adenovirus, Human Metapneumovirus, Parainfluenza 1,2,3, and 4, Rhinovirus, Bordetella parapertussis/bronchiseptica, Bordetella holmesii, and Bordetella pertussis. Performed By: #### 1 [id number] #### [facility] [address] [place] [address] B. parapertussis DNA BRIAN+probe Ql (Upper resp) Not detected Normal Not Detected [facility] Comment on above: Performed By: #### 1 [id number] #### [facility] [address] [place] [address] B. pertussis DNA BRIAN+probe Ql (Upper resp) Not detected Normal Not Detected [facility] Comment on above: Performed By: #### 1 [id number] #### [facility] [address] [place] [address] FLUAV H1 RNA BRIAN+non-probe Ql (Nph) Not detected Normal [facility] Comment on above: Performed By: #### 1 [id number] #### [facility] [address] [place] [address] FLUAV H3 RNA BRIAN+non-probe Ql (Nph) Not detected Normal [facility] Comment on above: Performed By: #### 1 [id number] #### [facility] [address] [place] [address] FLUAV RNA BRIAN+non-probe Ql (Nph) Not detected Normal [facility] Comment on above: Performed By: #### 1 [id number] #### [facility] [address] [place] [address] FLUBV RNA BRIAN+non-probe Ql (Nph) Not detected Normal [facility] Comment on above: Performed By: #### 1 [id number] #### [facility] [address] [place] [address] Human Metapneumovirus Not detected Normal [facility] Comment on above: Result Comment: This test result should be correlated with clinical presentations and medical history by a healthcare provider to determine its clinical significance. Performed By: #### 1 [id number] #### [facility] [address] [place] [address] Parainfluenza virus 1 RNA BRIAN+non-probe Ql (Nph) Not detected Normal [facility] Comment on above: Performed By: #### 1 [id number] #### [facility] [address] [place] [address] Parainfluenza virus 2 RNA BRIAN+non-probe Ql (Nph) Not detected Normal [facility] Comment on above: Performed By: #### 1 [id number] #### [facility] [address] [place] [address] Parainfluenza virus 3 RNA BRIAN+non-probe Ql (Nph) Not detected Normal [facility] Comment on above: Performed By: #### 1 [id number] #### [facility] [address] [place] [address] Parainfluenza virus 4 RNA BRIAN+non-probe Ql (Nph) Not detected Normal [facility] Comment on above: Performed By: #### 1 [id number] #### [facility] [address] [place] [address] Resp Panel Intrl QC Pass Normal [facility] Comment on above: Performed By: #### 1 [id number] #### [facility] [address] [place] [address] Rhinovirus+Enterovir us RNA BRIAN+non-probe Ql (Nph) Not detected Normal [facility] Comment on above: Performed By: #### 1 [id number] #### [facility] [address] [place] [address] RSV RNA BRIAN+non-probe Ql (Nph) Not detected Normal [facility] Comment on above: Performed By: #### 1 [id number] #### [facility] [address] [place] [address] eGFRon 01-06-2024 eGFR 96 mL/min/1.73 m2 Normal >=59 [facility] Comment on above: Order Comment: Order added by Discern Expert. Performed By: #### 1 [id number] #### [facility] [address] [place] [address] BMPon 01-05-2024 Anion gap [Moles/Vol] 13 mmol/L Normal 6-16 [facility] Comment on above: Performed By: #### 2 [id number] #### [facility] [address] [place] [address] Calcium [Mass/Vol] 8.6 mg/dL Low 8.9-11.1 [facility] Comment on above: Performed By: #### 2 [id number] #### [facility] [address] [place] [address] Chloride [Moles/Vol] 99 mmol/L Low 101-111 [facility] Comment on above: Performed By: #### 2 [id number] #### [facility] [address] [place] [address] CO2 [Moles/Vol] 31 mmol/L Normal 21-31 [facility] Comment on above: Performed By: #### 2 [id number] #### [facility] [address] [place] [address] Creatinine [Mass/Vol] 0.6 mg/dL Normal 0.5-1.3 [facility] Comment on above: Performed By: #### 2 [id number] #### [facility] [address] [place] [address] Glucose [Mass/Vol] 143 mg/dL Normal 55-199 [facility] Comment on above: Performed By: #### 2 [id number] #### [facility] [address] [place] [address] Potassium [Moles/Vol] 4.0 mmol/L Normal 3.5-5.3 [facility] Comment on above: Performed By: #### 2 [id number] #### [facility] [address] [place] [address] Sodium [Moles/Vol] 139 mmol/L Normal 135-145 [facility] Comment on above: Performed By: #### 2 [id number] #### [facility] [address] [place] [address] Urea nitrogen [Mass/Vol] 23 mg/dL High 5-21 [facility] Comment on above: Performed By: #### 2 [id number] #### [facility] [address] [place] [address] Urea nitrogen/Creatinine [Mass ratio] 38 No Units High 10-20 [facility] Comment on above: Performed By: #### 2 [id number] #### [facility] [address] [place] [address] BNPon 4 Int Ctr BNP Pass Normal [facility] Comment on above: Performed By: #### 1 [id number] #### [facility] [address] [place] [address] Natriuretic peptide B (Bld) [Mass/Vol] 17 pg/mL Normal 5-80 [facility] Comment on above: Performed By: #### 1 [id number] #### [facility] [address] [place] [address] CBC w/ Auto Diffon 4 Basophils/100 WBC (Bld) 0.1 % Normal 0.0-2.0 [facility] Comment on above: Performed By: #### 2 [id number] #### [facility] [address] [place] [address] Basophils/Leukocytes Auto (Bld) [Pure # fraction] 0.0 E9/L Normal 0.0-0.2 [facility] Comment on above: Performed By: #### 2 [id number] #### [facility] [address] [place] [address] Eosinophils (Bld) [#/Vol] 0.0 E9/L Normal 0.0-0.5 [facility] Comment on above: Performed By: #### 2 [id number] #### [facility] [address] [place] [address] Eosinophils/100 WBC (Bld) 0.0 % Normal 0.0-8.0 [facility] Comment on above: Performed By: #### 2 [id number] #### [facility] [address] [place] [address] Erythrocyte distribution width (RBC) [Ratio] 15.8 % High 10.9-14.2 [facility] Comment on above: Performed By: #### 2 [id number] #### [facility] [address] [place] [address] Hematocrit (Bld) [Volume fraction] 40.9 % Normal 34.0-46.0 [facility] Comment on above: Performed By: #### 2 [id number] #### [facility] [address] [place] [address] Hemoglobin (Bld) [Mass/Vol] 13.3 g/dL Normal 12.0-16.0 [facility] Comment on above: Performed By: #### 2 [id number] #### [facility] [address] [place] [address] Lymphocytes (Bld) [#/Vol] 0.9 E9/L Low 1.0-4.0 [facility] Comment on above: Performed By: #### 2 [id number] #### [facility] [address] [place] [address] Lymphocytes/100 WBC (Bld) 5.0 % Low 14.0-50.0 [facility] Comment on above: Performed By: #### 2 [id number] #### [facility] [address] [place] [address] MCH (RBC) [Entitic mass] 28.4 pg Normal 27.0-34.0 [facility] Comment on above: Performed By: #### 2 [id number] #### [facility] [address] [place] [address] MCHC (RBC) [Mass/Vol] 32.4 g/dL Normal 31.4-36.0 [facility] Comment on above: Performed By: #### 2 [id number] #### [facility] [address] [place] [address] MCV (RBC) [Entitic vol] 87.6 fL Normal 80.0-100.0 [facility] Comment on above: Performed By: #### 2 [id number] #### [facility] [address] [place] [address] Monocytes (Bld) [#/Vol] 0.4 E9/L Normal 0.2-1.0 [facility] Comment on above: Performed By: #### 2 [id number] #### [facility] [address] [place] [address] Neutrophils (Bld) [#/Vol] 16.5 E9/L High 2.0-7.5 [facility] Comment on above: Performed By: #### 2 [id number] #### [facility] [address] [place] [address] Neutrophils/100 WBC (Bld) 92.4 % High 36.0-75.0 [facility] Comment on above: Performed By: #### 2 [id number] #### [facility] [address] [place] [address] Platelet mean volume (Bld) [Entitic vol] 7.6 fL Normal 6.4-10.8 [facility] Comment on above: Performed By: #### 2 [id number] #### [facility] [address] [place] [address] Platelets (Bld) [#/Vol] 211.0 E9/L Normal 150.0-500.0 [facility] Comment on above: Performed By: #### 2 [id number] #### [facility] [address] [place] [address] RBC (Bld) [#/Vol] 4.7 E12/L Normal 4.3-5.9 [facility] Comment on above: Performed By: #### 2 [id number] #### [facility] [address] [place] [address] WBC corrected for nucl RBC Auto (Bld) [#/Vol] 17.9 E9/L High 4.0-11.0 [facility] Comment on above: Performed By: #### 2 [id number] #### [facility] [address] [place] [address] CHEMISTRYOrdered By: Tina ferreira on 01-05-2024 HbA1c (Bld) [Mass fraction] 6.2 % High <=5.9% [facility] ChemAutoSS CHEMISTRYOrdered By: SYSTEM SYSTEM on 01-05-2024 Anion gap [Moles/Vol] 13 mmol/L Normal 6 - 16 mEq/L [facility] Calcium [Mass/Vol] 8.6 mg/dL Low 8.9 - 11.1 mg/dL [facility] Chloride [Moles/Vol] 99 mmol/L Low 101 - 111 mmol/ L [facility] Cholesterol [Mass/Vol] 211 mg/dL High 120 - 200 mg/dL [facility] Cholesterol in HDL [Mass/Vol] 86 mg/dL Invalid Interpretation Code [facility] Comment on above: Result Comment: '>= 60 LOW RISK' '<= 40 HIGH RISK' Cholesterol in LDL [Mass/Vol] 97 mg/dL Normal <=129mg/dL [facility] Cholesterol in VLDL [Mass/Vol] 16 mg/dL Normal 7 - 40 mg/dL [facility] CO2 [Moles/Vol] 31 mmol/L Normal 21 - 31 mmol/L [facility] Creatinine [Mass/Vol] 0.6 mg/dL Normal 0.5 - 1.3 mg/dL [facility] CRP [Mass/Vol] 0.9 mg/dL Normal <=1.9mg/dL [facility] eGFR 100 mL/min/1.73 m2 Normal >=59mL/mi n/1.73 m2 [facility] Free T4 [Mass/Vol] 1.71 ng/dL High 0.58 - 1.64 ng/dL [facility] Glucose [Mass/Vol] 143 mg/dL Normal 55 - 199 mg/dL Re misol Chem Potassium [Moles/Vol] 4.0 mmol/L Normal 3.5 - 5.3 mmol/L [facility] Sodium [Moles/Vol] 139 mmol/L Normal 135 - 145 mmol/L [facility] Triglyceride [Mass/Vol] 78 mg/dL Normal <=149mg/dL [facility] Troponin HS 5.10 pg/mL Low 10.10 - 27.10 pg/mL [facility] Comment on above: Interpretive Data: T he 95% CI (Confidence Interval) PPV (Positive Predictive Value) for myocardial infarction in females is 38 pg/mL, in males 51 pg/mL. The results should be used in conjunction with clinical conditions of myocardial infarction. (Access High Sensitivity Troponin I Instructions For Use, Dheeraj Talisha, January 2018) TSH Qn mcIU/mL Low 0.34 - 5.60 mcIU/mL [facility] Urea nitrogen [Mass/Vol] 23 mg/dL High 5 - 21 mg/dL [facility] Urea nitrogen/Creatinine [Mass ratio] 38 mg/mg High 10 - 20 [facility] CHEMISTRYOrdered By: Alesia Aragon on 01-05-2024 Natriuretic peptide B (Bld) [Mass/Vol] 17 pg/mL Normal 5 - 80 pg/mL [facility] CRPon 01-05-2024 CRP [Mass/Vol] 0.9 mg/dL Normal <=1.9 [facility] Comment on above: Performed By: #### 2 [id number] #### [facility] [address] [place] [address] Capillary Glucose POCon Glucose [Mass/Vol] 234 mg/dL High 55-99 [facility] Comment on above: Result Comment: Sugar muhammad RN/ Performed By: #### 2 [id number] #### [facility] [address] [place] [address] Glucose [Mass/Vol] 221 mg/dL High 55-99 [facility] Comment on above: Result Comment: Sugar WALKER Performed By: #### 2 [id number] #### [facility] [address] [place] [address] Glucose [Mass/Vol] 144 mg/dL High 55-99 [facility] Comment on above: Result Comment: Sugar WALKER Performed By: #### 2 [id number] #### [facility] [address] [place] [address] Glucose [Mass/Vol] 157 mg/dL High 55-99 [facility] Comment on above: Result Comment: Sugar WALKER Performed By: #### 2 [id number] #### [facility] [address] [place] [address] Free T4on 01-05-2024 Free T4 [Mass/Vol] 1.71 ng/dL High 0.58-1.64 [facility] Comment on above: Performed By: #### 2 [id number] #### [facility] [address] [place] [address] HEMATOLOGYOrdered By: SYSTEM SYSTEM on 01-05-2024 Basophils/100 WBC (Bld) 0.1 % Normal 0.0 - 2.0 % [facility] Basophils/Leukocytes Auto (Bld) [Pure # fraction] 0.0 E9/L Normal 0.0 - 0.2 E9/L [facility] Eosinophils (Bld) [#/Vol] 0.0 E9/L Normal 0.0 - 0.5 E9/L [facility] Eosinophils/100 WBC (Bld) 0.0 % Normal 0.0 - 8.0 % [facility] Erythrocyte distribution width (RBC) [Ratio] 15.8 % High 10.9 - 14.2 % [facility] Hematocrit (Bld) [Volume fraction] 40.9 % Normal 34.0 - 46.0 % [facility] Hemoglobin (Bld) [Mass/Vol] 13.3 g/dL Normal 12.0 - 16.0 gm/dL [facility] Lymphocytes (Bld) [#/Vol] 0.9 E9/L Low 1.0 - 4.0 E9/L [facility] Lymphocytes/100 WBC (Bld) 5.0 % Low 14.0 - 50.0 % [facility] MCH (RBC) [Entitic mass] 28.4 pg Normal 27.0 - 34.0 pg [facility] MCHC (RBC) [Mass/Vol] 32.4 g/dL Normal 31.4 - 36.0 gm/dL [facility] MCV (RBC) [Entitic vol] 87.6 fL Normal 80.0 - 100.0 fL [facility] Monocytes (Bld) [#/Vol] 0.4 E9/L Normal 0.2 - 1.0 E9/L [facility] Monocytes/100 WBC (Bld) 2.5 % Low 4.0 - 14.0 % [facility] Neutrophils (Bld) [#/Vol] 16.5 E9/L High 2.0 - 7.5 E9/L [facility] Neutrophils/100 WBC (Bld) 92.4 % High 36.0 - 75.0 % [facility] Platelet mean volume (Bld) [Entitic vol] 7.6 fL Normal 6.4 - 10.8 fL [facility] Platelets (Bld) [#/Vol] 211.0 E9/L Normal 150.0 - 500.0 E9/L [facility] RBC (Bld) [#/Vol] 4.7 E12/L Normal 4.3 - 5.9 E12/L Re misol Heme WBC corrected for nucl RBC Auto (Bld) [#/Vol] 17.9 E9/L High 4.0 - 11.0 E9/L [facility] - Microbiology an d Antimicrobial susceptibilityOrdered By: Bebe Sanches on 01-05-2024 Bacteria identified Respiratory culture Nom (Sput) 2+ Normal upper respiratory juanjose isolated [facility] Lipid Panelon 01-05-2024 Cholesterol [Mass/Vol] 211 mg/dL High 120-200 [facility] Comment on above: Performed By: #### 2 [id number] #### [facility] [address] [place] [address] Cholesterol in HDL [Mass/Vol] 86 mg/dL Invalid Interpretation Code [facility] Comment on above: Result Comment: '>= 60 LOW RISK' '<= 40 HIGH RISK' Performed By: #### 2 [id number] #### [facility] [address] [place] [address] Cholesterol in LDL [Mass/Vol] 97 mg/dL Normal <=129 [facility] Comment on above: Performed By: #### 2 [id number] #### [facility] [address] [place] [address] Cholesterol in VLDL [Mass/Vol] 16 mg/dL Normal 7-40 [facility] Comment on above: Performed By: #### 2 [id number] #### [facility] [address] [place] [address] Triglyceride [Mass/Vol] 78 mg/dL Normal <=149 [facility] Comment on above: Performed By: #### 2 [id number] #### [facility] [address] [place] [address] No Panel InformationOrdered By: Bebe Sanches on 01-05-2024 GS Occasional epithelial cells Occasional White Blood Cells 1+ Gram Positive Cocci [facility] TSH With T4fr Reflexon 01-04 TSH Qn m[IU]/L Low 0.34-5.60 [facility] Comment on above: Performed By: #### 1 [id number] #### [facility] [address] [place] [address] Troponinon 01-05-2024 Troponin HS 5.10 pg/mL Low 10.10-27.10 [facility] Comment on above: Result Comment: The 95% CI (Confidence Interval) PPV (Positive Predictive Value) for myocardial infarction in females is 38 pg/mL, in males 51 pg/mL. The results should be used in conjunction with clinical conditions of myocardial infarction. (Access High Sensitivity Troponin I Instructions For Use, Dheeraj Talisha, January 2018) Performed By: #### 2 [id number] #### [facility] [address] [place] [address] eGFRon 01-05-2024 eGFR 100 mL/min/1.73 m2 Normal >=59 [facility] Comment on above: Order Comment: Order added by Discern Expert. Performed By: #### 1 [id number] #### [facility] [address] [place] [address] BMPon 01-04-2024 Anion gap [Moles/Vol] 14 mmol/L Normal 6-16 [facility] Comment on above: Performed By: #### 2 [id number] #### [facility] [address] [place] [address] Calcium [Mass/Vol] 8.3 mg/dL Low 8.9-11.1 [facility] Comment on above: Performed By: #### 2 [id number] #### [facility] [address] [place] [address] Chloride [Moles/Vol] 103 mmol/L Normal 101-111 [facility] Comment on above: Performed By: #### 2 [id number] #### [facility] [address] [place] [address] CO2 [Moles/Vol] 26 mmol/L Normal 21-31 [facility] Comment on above: Performed By: #### 2 [id number] #### [facility] [address] [place] [address] Creatinine [Mass/Vol] 0.7 mg/dL Normal 0.5-1.3 [facility] Comment on above: Performed By: #### 2 [id number] #### [facility] [address] [place] [address] Glucose [Mass/Vol] 195 mg/dL Normal 55-199 [facility] Comment on above: Performed By: #### 2 [id number] #### [facility] [address] [place] [address] Potassium [Moles/Vol] 4.6 mmol/L Normal 3.5-5.3 [facility] Comment on above: Performed By: #### 2 [id number] #### [facility] [address] [place] [address] Sodium [Moles/Vol] 138 mmol/L Normal 135-145 [facility] Comment on above: Performed By: #### 2 [id number] #### [facility] [address] [place] [address] Urea nitrogen [Mass/Vol] 28 mg/dL High 5-21 [facility] Comment on above: Performed By: #### 2 [id number] #### [facility] [address] [place] [address] Urea nitrogen/Creatinine [Mass ratio] 40 No Units High 10-20 [facility] Comment on above: Performed By: #### 2 [id number] #### [facility] [address] [place] [address] BNPon 01-04-2024 Int Ctr BNP Pass Normal [facility] Comment on above: Performed By: #### 1 [id number] #### [facility] [address] [place] [address] Natriuretic peptide B (Bld) [Mass/Vol] 10 pg/mL Normal 5-80 [facility] Comment on above: Performed By: #### 1 [id number] #### [facility] [address] [place] [address] Blood Gas Art, with Lytes, G tonja, [place] 01-04-2024 a/A Ratio Art 57.20 % Normal >=0.80 [facility] Comment on above: Performed By: #### 4 [id number] #### [facility] [address] [place] [address] AaDO2 Art 44.7 mmHg High 5.0-15.0 [facility] Comment on above: Performed By: #### 4 [id number] #### [facility] [address] [place] [address] Allens Test Positive Normal [facility] Comment on above: Performed By: #### 4 [id number] #### [facility] [address] [place] [address] Base Excess Arterial 2.8 mmol/L Normal >=2.8 [facility] [place] Comment on above: Performed By: #### 4 [id number] #### [facility] [address] [place] [address] cCa2+ Art 4.60 mg/dL Normal 4.40-5.30 [facility] Comment on above: Performed By: #### 4 [id number] #### [facility] [address] [place] [address] cCl- Art 103.0 mmol/L Normal 101.0-111.0 [facility] Comment on above: Performed By: #### 4 [id number] #### [facility] [address] [place] [address] cGlu Art 182 mg/dL High 55-99 [facility] Comment on above: Performed By: #### 4 [id number] #### [facility] [address] [place] [address] cK+ Art 4.0 mmol/L Normal 3.5-5.3 [facility] Comment on above: Performed By: #### 4 [id number] #### [facility] [address] [place] [address] cLac Art 3.3 mmol/L High .5-2.2 [facility] Comment on above: Performed By: #### 4 [id number] #### [facility] [address] [place] [address] rn prior authorization+ Art 141.0 mmol/L Normal 135.0-145.0 [facility] Comment on above: Performed By: #### 4 [id number] #### [facility] [address] [place] [address] Drawn by KD Invalid Interpretation Code [facility] Comment on above: Performed By: #### 4 [id number] #### [facility] [address] [place] [address] FCOHb Art 1.2 % Low 1.5-4.9 [facility] Comment on above: Result Comment: Refe rence range Nonsmoker <1.5% Smoker <5.0% Heavy Smoker <9.0% Performed By: #### 4 [id number] #### [facility] [address] [place] [address] FIO2 BG 21 Invalid Interpretation Code [facility] Comment on above: Performed By: #### 4 [id number] #### [facility] [address] [place] [address] FMetHb Art 0.1 % Normal 0.0-1.9 [facility] Comment on above: Performed By: #### 4 [id number] #### [facility] [address] [place] [address] FO2Hb Art 91.0 % Low 92.0-100.0 [facility] Comment on above: Performed By: #### 4 [id number] #### [facility] [address] [place] [address] HCO3 (Bld) [Moles/Vol] 26.7 mmol/L High 22.0-26.0 [facility] Comment on above: Performed By: #### 4 [id number] #### [facility] [address] [place] [address] Hemoglobin (Bld) [Mass/Vol] 12.7 g/dL Normal 12.0-16.0 [facility] Comment on above: Performed By: #### 4 [id number] #### [facility] [address] [place] [address] Oxygen saturation in Blood 92.2 % Low 95.0-100.0 [facility] Comment on above: Performed By: #### 4 [id number] #### [facility] [address] [place] [address] P CO2 Arterial 36.2 mmHg Normal 35.0-45.0 [facility] Comment on above: Performed By: #### 4 [id number] #### [facility] [address] [place] [address] P O2 Arterial 59.6 mmHg Low 80.0-100.0 [facility] Comment on above: Performed By: #### 4 [id number] #### [facility] [address] [place] [address] pH Arterial 7.470 High 7.350-7.450 [facility] Comment on above: Performed By: #### 4 [id number] #### [facility] [address] [place] [address] Sample Site R Radial Normal [facility] Comment on above: Performed By: #### 4 [id number] #### [facility] [address] [place] [address] Sample Type Arterial Draw Normal [facility] Comment on above: Performed By: #### 4 [id number] #### [facility] [address] [place] [address] CBC w/ Auto Diffon 4 Basophils/100 WBC (Bld) 0.2 % Normal 0.0-2.0 [facility] Comment on above: Performed By: #### 2 [id number] #### [facility] [address] [place] [address] Basophils/Leukocytes Auto (Bld) [Pure # fraction] 0.0 E9/L Normal 0.0-0.2 [facility] Comment on above: Performed By: #### 2 [id number] #### [facility] [address] [place] [address] Eosinophils (Bld) [#/Vol] 0.0 E9/L Normal 0.0-0.5 [facility] Comment on above: Performed By: #### 2 [id number] #### [facility] [address] [place] [address] Eosinophils/100 WBC (Bld) 0.0 % Normal 0.0-8.0 [facility] Comment on above: Performed By: #### 2 [id number] #### [facility] [address] [place] [address] Erythrocyte distribution width (RBC) [Ratio] 16.0 % High 10.9-14.2 [facility] Comment on above: Performed By: #### 2 [id number] #### [facility] [address] [place] [address] Hematocrit (Bld) [Volume fraction] 37.5 % Normal 34.0-46.0 [facility] Comment on above: Performed By: #### 2 [id number] #### [facility] [address] [place] [address] Hemoglobin (Bld) [Mass/Vol] 12.6 g/dL Normal 12.0-16.0 [facility] Comment on above: Performed By: #### 2 [id number] #### [facility] [address] [place] [address] Lymphocytes (Bld) [#/Vol] 0.5 E9/L Low 1.0-4.0 [facility] Comment on above: Performed By: #### 2 [id number] #### [facility] [address] [place] [address] Lymphocytes/100 WBC (Bld) 2.5 % Low 14.0-50.0 [facility] Comment on above: Performed By: #### 2 [id number] #### [facility] [address] [place] [address] MCH (RBC) [Entitic mass] 29.2 pg Normal 27.0-34.0 [facility] Comment on above: Performed By: #### 2 [id number] #### [facility] [address] [place] [address] MCHC (RBC) [Mass/Vol] 33.5 g/dL Normal 31.4-36.0 [facility] Comment on above: Performed By: #### 2 [id number] #### [facility] [address] [place] [address] MCV (RBC) [Entitic vol] 87.2 fL Normal 80.0-100.0 [facility] Comment on above: Performed By: #### 2 [id number] #### [facility] [address] [place] [address] Monocytes (Bld) [#/Vol] 0.3 E9/L Normal 0.2-1.0 [facility] Comment on above: Performed By: #### 2 [id number] #### [facility] [address] [place] [address] Neutrophils (Bld) [#/Vol] 18.0 E9/L High 2.0-7.5 [facility] Comment on above: Performed By: #### 2 [id number] #### [facility] [address] [place] [address] Neutrophils/100 WBC (Bld) 95.7 % High 36.0-75.0 [facility] Comment on above: Performed By: #### 2 [id number] #### [facility] [address] [place] [address] Platelet 233.0 E9/L Normal 150.0-500.0 [facility] Comment on above: Performed By: #### 2 [id number] #### [facility] [address] [place] [address] Platelet mean volume (Bld) [Entitic vol] 7.4 fL Normal 6.4-10.8 [facility] Comment on above: Performed By: #### 2 [id number] #### [facility] [address] [place] [address] RBC (Bld) [#/Vol] 4.3 E12/L Normal 4.3-5.9 [facility] Comment on above: Performed By: #### 2 [id number] #### [facility] [address] [place] [address] WBC corrected for nucl RBC Auto (Bld) [#/Vol] 18.9 E9/L High 4.0-11.0 [facility] Comment on above: Result Comment: Merary pheral smear review performed. Performed By: #### 2 [id number] #### [facility] [address] [place] [address] CHEMISTRYOrdered By: SYSTEM SYSTEM on 01-04-2024 Lactic Acid Lvl 2.0 mmol/L Normal 0.5 - 2.2 mmol/L Rem isol Chem Lactic Acid Lvl 2.7 mmol/L High 0.5 - 2.2 mmol/L Rem isol Chem Troponin HS 5.90 pg/mL Low 10.10 - 27.10 pg/mL [facility] Comment on above: Interpretive Data: T he 95% CI (Confidence Interval) PPV (Positive Predictive Value) for myocardial infarction in females is 38 pg/mL, in males 51 pg/mL. The results should be used in conjunction with clinical conditions of myocardial infarction. (Access High Sensitivity Troponin I Instructions For Use, [employer], January 2018) Troponin HS 4.90 pg/mL Low 10.10 - 27.10 pg/mL Remisol [facility] Comment on above: Interpretive Data: T he 95% CI (Confidence Interval) PPV (Positive Predictive Value) for myocardial infarction in females is 38 pg/mL, in males 51 pg/mL. The results should be used in conjunction with clinical conditions of myocardial infarction. (Access High Sensitivity Troponin I Instructions For Use, [employer], January 2018) CHEMISTRYOrdered By: Bjorn Ta on 01-04-2024 Natriuretic peptide B (Bld) [Mass/Vol] 10 pg/mL Normal 5 - 80 pg/mL [facility] COAGULATIONOrdered By: Sandra Ta on 01-04-2024 aPTT Coag (PPP) [Time] 25.0 s Low 25.1 - 36.5 second(s) [facility] Comment on above: Interpretive Data: P arameter 15 days - 4 weeks 1 - [...] the same coagulation reagent and instrumentation as [facility]. Currently there are no coagulation studies available worldwide for children to 14 days, and no normal ranges. Heparin therapeutic range (represented by Anti-Factor Xa activity of 0.2 - 0.4 U/mL) corresponds to PTT of 56.6 - 109.0 sec. INR Coag (PPP) [Relative time] 1.03 {INR} Invalid Interpretation Code [facility] Comment on above: Interpretive Data: I NR results are specifically intended to assess patients stabilized on long-term Anticoagulation therapy suggested INR s Less Intensive Anticoagulation 2.0 3.0 Conventional Range 3.0 4.5 PT Coag (PPP) [Time] 11.5 s Normal 9.4 - 1 2.5 second(s) [facility] Comment on above: Interpretive Data: 1 5 days - 4 weeks 1 - 5 months 6 -11 months 1-5 years 6-10 years 11 -17 years Mean: 11.2 (9.5-12.6) Mean: 11.0 (9.7-12.8) Mean: 11.0 (9.8-13.0) Mean: 11.3 (9.9-13.4) Mean: 11.7 (10.0-14.6) Mean: 11.8 (10.0 - 14.1) Pediatric Reference ranges were obtained from a study by kaycee Lawrence al. prepared from 1437 samples obtained at 7 different centers using the same coagulation reagent and instrumentation as [facility]. Currently there are no coagulation studies available worldwide for children to 14 days, and no normal ranges. CTA Cheston 01-04-2024 CTA Chest Exam Date/Time: 01/04/2024 17:17 EDT Reason for Exam: Shortness of breath (SOB) Report IMPRESSION: NO EVIDENCE OF PULMONARY EMBOLI OR ACTIVE CARDIOPULMONARY DISEASE. EXAM: CTA Chest DATE: 01/04/2024 5:15 PM CLINICAL HISTORY: Shortness of breath (SOB). COMPARISON: None available TECHNIQUE: Spiral enhanced images were obtained of the chest after the infusion of approximately 75 mL of Isovue 370 contrast with pulmonary artery CTA protocol. Routine and volume rendered images were performed on a three-dimensional workstation. All CT scans at this facility use dose modulation, iterative reconstruction, and/or weight based dosing when appropriate to reduce radiation dose to as low as reasonably achievable. Unless otherwise stated, incidental findings identified in this report do not require routine follow-up imaging. FINDINGS: Pulmonary arteries: Limited pulmonary arterial bolus concentration. Normal in caliber without suspicious filling defects identified to suggest significant pulmonary emboli. Thoracic aorta: Normal in caliber with minimal to mild calcified atherosclerotic plaquing. There is no dissection. Heart: Not enlarged. Coronary artery calcifications and/or stents are present. No significant pericardial effusion. Mediastinum and lymph nodes: No pathologically enlarged mediastinal, hilar, or axillary lymph nodes. Lungs and pleura: No focal consolidation, pleural effusion, or pneumothorax. Mild dependent atelectasis. Thyroid: Unremarkable. Esophagus: Unremarkable. Musculoskeletal: No acute osseous findings. Chronic marked T6 and moderate T9 compression fractures with degenerative endplate changes. Upper abdomen: Noncontributory. Report Ordering Provider: Keisha Garsia FINAL REPORT Dictated: 01/04/2024 5:41 pm Yosi Tristan MD Signed (Electronic Signature): 01/04/2024 5:41 pm Signed by: Yosi Tristan MD Transcribed by: FRANCISCA Technologist: JYOTSNA Technical Comments GFR (mL/min/1/73m2) >60 Contrast: Isovue 370 Contrast amount in ml's: 75 Normal [facility] ED Clinical Summaryon 2023 ED Clinical Summary ED Clinical Summary [place] [id number] ED Clinical Summary Person Information Name: CAROLINA GUTIERREZ [place]/[facility] Age: 63 Years : 1960 Sex: Female Language: Samoan PCP: Berry Canales Marital Status: Phone: [phone] Visit Id: Visit Reason: Cough; Shortness of breath; TROUBLE BREATHING Speciality: Acuity: 2 Enc Type: Inpatient Med Service: Medical Arrival: 01/04/2024 15:52:06 Discharge: LOS: 000 05:07 Checkin: 01/04/2024 15:52:06 Checkout: 01/04/2024 20:59:34 Dispo Type: Admitted as IP to this [facility] EVENTS: Event Name Event Status Request Date/Time Start Date/Time Complete Date/Time Arrive Complete 01/04/2024 15:52:06 01/04/2024 15:52:06 01/04/2024 15:52:06 Document Home Meds Request 01/04/2024 15:52:06 Triage Complete 01/04/2024 15:52:06 01/04/2024 16:18:24 01/04/2024 16:18:24 Bed Assign Complete 01/04/2024 15:57:31 01/04/2024 15:57:31 01/04/2024 15:57:31 Dr Exam Complete 01/04/2024 15:57:31 01/04/2024 16:15:32 01/04/2024 16:15:32 RN Exam Complete 01/04/2024 15:57:31 01/04/2024 17:24:57 01/04/2024 17:24:57 Registration Complete 01/04/2024 15:58:15 01/04/2024 15:58:15 01/04/2024 15:58:15 Reg Complete Request 01/04/2024 15:58:15 Reg Bed Request Complete 01/04/2024 15:58:15 01/04/2024 15:58:15 01/04/2024 15:58:15 EKG Complete 01/04/2024 16:09:16 01/04/2024 16:14:04 Registration Request 01/04/2024 16:15:32 Dr Exam Complete 01/04/2024 16:16:02 01/04/2024 16:16:02 01/04/2024 16:16:02 Isolation Screening Request 01/04/2024 16:18:25 Pending Labs Complete 01/04/2024 16:30:24 01/04/2024 18:26:06 Lab Complete 01/04/2024 16:30:24 01/04/2024 17:30:04 Patient Care Request 01/04/2024 16:30:24 RT Request 01/04/2024 16:30:24 X-Ray Cancel 01/04/2024 16:30:24 01/04/2024 16:32:55 RT Tx/ABG Request 01/04/2024 16:30:24 Meds Admin Complete 01/04/2024 16:30:24 01/04/2024 16:47:04 RT Tx/ABG Request 01/04/2024 16:30:25 RT Tx/ABG Request 01/04/2024 16:30:25 CT Complete 01/04/2024 16:33:16 01/04/2024 17:15:33 01/04/2024 17:17:10 Pending Labs Complete 01/04/2024 16:50:30 01/04/2024 16:50:30 01/04/2024 17:12:49 Lab Complete 01/04/2024 16:50:30 01/04/2024 16:50:30 01/04/2024 17:12:49 Pending Labs Complete 01/04/2024 17:18:16 01/04/2024 17:18:16 01/04/2024 17:18:16 Meds Admin Complete 01/04/2024 17:20:08 01/04/2024 17:29:23 RT Tx/ABG Request 01/04/2024 17:20:09 RT Tx/ABG Request 01/04/2024 17:20:09 Possible Sepsis Request 01/04/2024 17:36:02 Pending Labs Inlab 01/04/2024 17:37:56 Lab Inlab 01/04/2024 17:37:56 Consult Request 01/04/2024 18:15:44 Hospitalist Consult Request 01/04/2024 18:15:44 Pending Labs Request 01/04/2024 18:19:15 Lab Request 01/04/2024 18:19:15 Bed Request Request 01/04/2024 19:31:42 Reg Bed Request Request 01/04/2024 19:31:42 Admit Request 01/04/2024 19:31:42 Patient Care Request 01/04/2024 20:51:41 Patient Care Request 01/04/2024 20:51:41 Patient Care Request 01/04/2024 20:51:42 Patient Care Request 01/04/2024 20:51:42 Patient Care Request 01/04/2024 20:51:43 Patient Care Request 01/04/2024 20:51:43 ADDRESS: [address] [place] [phone] PHYS DOC NOTES: MEDICAL INFORMATION: Prescriptions Given: Medications to Continue with No Changes Other Medications acetaminophen-hydroc odone (acetaminophen-hydro codone 325 mg-5 mg oral tablet) 1 Tablets By Mouth every 4 hours as needed for pain. albuterol (ProAir RespiClick 90 mcg/inh inhalation powder) 2 Puffs Inhalation every 4 hours as needed for wheezing or SOB. Refills: 11. albuterol-ipratropiu m (DuoNeb 2.5 mg-0.5 mg/3 mL Soln-Inh) 3 Milliliter Nebulized inhalation (aerosol) 6 times a day. Refills: 1. albuterol-ipratropiu m (DuoNeb 2.5 mg-0.5 mg/3 mL Soln-Inh) 3 Milliliter Inhalation 4 times a day. Refills: 0. celecoxib (celecoxib 200 mg Cap) 1 Capsules By Mouth 2 times a day. denosumab (Prolia) 60 Milligram Subcutaneous every 6 months. dextromethorphan-pro methazine (dextromethorphan-pr omethazine 15 mg-6.25 mg/5 mL Oral Syrup 5 mL) 5 Milliliter By Mouth every 6 hours as needed for cough. Refills: 0. fluticasone nasal (Flonase 0.05 mg/inh nasal spray) 2 Sprays Nasal Inhalation every day. homatropine-hydrocod one (homatropine-hydroco done 1.5 mg-5 mg/5 mL oral syrup) 5 Milliliter By Mouth every 4 hours as needed for cough. Refills: 0. levofloxacin (Levaquin) every 24 hours. levofloxacin (levofloxacin 750 mg Tab) 1 Tablets By Mouth every 24 hours for 7 Days. Refills: 0. levothyroxine (levothyroxine 137 mcg (0.137 mg) Tab) TAKE 1 TABLET BY MOUTH EVERY DAY. Refills: 4. montelukast (montelukast 10 mg Tab) TAKE 1 TABLET BY MOUTH TWICE A DAY. Refills: 1. ondansetron (Zofran 4 mg Tab) 1 Tablets By Mouth every 6 hours. Refills: 1. pantoprazole (Pantoprazole [address] Tab) 1 Tablets By Mouth every day for 90 Days. Refills: 3. predniSONE By Mouth every day. predniSONE (predniSONE 20 mg Tab) Take 3 tabs for 3 days, then 2 tabs for 3 days, then 1 tab for 3 days.. Refills: 0. semaglutide (Ozempic (1 mg dose)) 2 mg Cota (more content not included)... Normal [facility] ED Clinical Summary ED Clinical Summary [place] [id number] ED Clinical Summary Person Information Name: CAROLINA GUTIERREZ/[facility] Age: 63 Years : 1960 Sex: Female Language: Samoan PCP: Berry Canales Marital Status: Phone: [phone] Visit Id: Visit Reason: Cough; Shortness of breath; TROUBLE BREATHING Speciality: Acuity: 2 Enc Type: Emergency Med Service: Emergency Arrival: 01/04/2024 15:52:06 Discharge: LOS: 000 02:22 Checkin: 01/04/2024 15:52:06 Checkout: Dispo Type: EVENTS: Event Name Event Status Request Date/Time Start Date/Time Complete Date/Time Arrive Complete 01/04/2024 15:52:06 01/04/2024 15:52:06 01/04/2024 15:52:06 Document Home Meds Request 01/04/2024 15:52:06 Triage Complete 01/04/2024 15:52:06 01/04/2024 16:18:24 01/04/2024 16:18:24 Bed Assign Complete 01/04/2024 15:57:31 01/04/2024 15:57:31 01/04/2024 15:57:31 Dr Exam Complete 01/04/2024 15:57:31 01/04/2024 16:15:32 01/04/2024 16:15:32 RN Exam Complete 01/04/2024 15:57:31 01/04/2024 17:24:57 01/04/2024 17:24:57 Registration Complete 01/04/2024 15:58:15 01/04/2024 15:58:15 01/04/2024 15:58:15 Reg Complete Request 01/04/2024 15:58:15 Reg Bed Request Complete 01/04/2024 15:58:15 01/04/2024 15:58:15 01/04/2024 15:58:15 EKG Complete 01/04/2024 16:09:16 01/04/2024 16:14:04 Registration Request 01/04/2024 16:15:32 Dr Exam Complete 01/04/2024 16:16:02 01/04/2024 16:16:02 01/04/2024 16:16:02 Isolation Screening Request 01/04/2024 16:18:25 Pending Labs Inlab 01/04/2024 16:30:24 Lab Complete 01/04/2024 16:30:24 01/04/2024 17:30:04 Patient Care Request 01/04/2024 16:30:24 RT Request 01/04/2024 16:30:24 X-Ray Cancel 01/04/2024 16:30:24 01/04/2024 16:32:55 RT Tx/ABG Request 01/04/2024 16:30:24 Meds Admin Complete 01/04/2024 16:30:24 01/04/2024 16:47:04 RT Tx/ABG Request 01/04/2024 16:30:25 RT Tx/ABG Request 01/04/2024 16:30:25 CT Complete 01/04/2024 16:33:16 01/04/2024 17:15:33 01/04/2024 17:17:10 Pending Labs Complete 01/04/2024 16:50:30 01/04/2024 16:50:30 01/04/2024 17:12:49 Lab Complete 01/04/2024 16:50:30 01/04/2024 16:50:30 01/04/2024 17:12:49 Pending Labs Complete 01/04/2024 17:18:16 01/04/2024 17:18:16 01/04/2024 17:18:16 Meds Admin Complete 01/04/2024 17:20:08 01/04/2024 17:29:23 RT Tx/ABG Request 01/04/2024 17:20:09 RT Tx/ABG Request 01/04/2024 17:20:09 Possible Sepsis Request 01/04/2024 17:36:02 Pending Labs Inlab 01/04/2024 17:37:56 Lab Inlab 01/04/2024 17:37:56 ADDRESS: [address] [place] [phone] PHYS DOC NOTES: MEDICAL INFORMATION: Prescriptions Given: Medications to Continue with No Changes Other Medications acetaminophen-hydroc odone (acetaminophen-hydro codone 325 mg-5 mg oral tablet) 1 Tablets By Mouth every 4 hours as needed for pain. albuterol (ProAir RespiClick 90 mcg/inh inhalation powder) 2 Puffs Inhalation every 4 hours as needed for wheezing or SOB. Refills: 11. albuterol-ipratropiu m (DuoNeb 2.5 mg-0.5 mg/3 mL Soln-Inh) 3 Milliliter Nebulized inhalation (aerosol) 6 times a day. Refills: 1. albuterol-ipratropiu m (DuoNeb 2.5 mg-0.5 mg/3 mL Soln-Inh) 3 Milliliter Inhalation 4 times a day. Refills: 0. celecoxib (celecoxib 200 mg Cap) 1 Capsules By Mouth 2 times a day. denosumab (Prolia) 60 Milligram Subcutaneous every 6 months. dextromethorphan-pro methazine (dextromethorphan-pr omethazine 15 mg-6.25 mg/5 mL Oral Syrup 5 mL) 5 Milliliter By Mouth every 6 hours as needed for cough. Refills: 0. fluticasone nasal (Flonase 0.05 mg/inh nasal spray) 2 Sprays Nasal Inhalation every day. homatropine-hydrocod one (homatropine-hydroco done 1.5 mg-5 mg/5 mL oral syrup) 5 Milliliter By Mouth every 4 hours as needed for cough. Refills: 0. levofloxacin (Levaquin) every 24 hours. levofloxacin (levofloxacin 750 mg Tab) 1 Tablets By Mouth every 24 hours for 7 Days. Refills: 0. levothyroxine (levothyroxine 137 mcg (0.137 mg) Tab) TAKE 1 TABLET BY MOUTH EVERY DAY. Refills: 4. montelukast (montelukast 10 mg Tab) TAKE 1 TABLET BY MOUTH TWICE A DAY. Refills: 1. ondansetron (Zofran 4 mg Tab) 1 Tablets By Mouth every 6 hours. Refills: 1. pantoprazole (Pantoprazole [address] Tab) 1 Tablets By Mouth every day for 90 Days. Refills: 3. predniSONE By Mouth every day. predniSONE (predniSONE 20 mg Tab) Take 3 tabs for 3 days, then 2 tabs for 3 days, then 1 tab for 3 days.. Refills: 0. semaglutide (Ozempic (1 mg dose)) 2 mg SubCutaneous qWeek, ordered by another provider. tiotropium (Spiriva Respimat 1.25 mcg/inh inhalation aerosol) upadacitinib (Rinvoq 15 mg oral tablet, extended release) PATIENT EDUCATION INFORMATION: Instructions: Follow up: DIAGNOSIS: Asthma exacerbation; CAP (community acquired pneumonia); Hypoxia Normal [facility] ED Note-Nursingon 01-04-2024 ED Note-Nursing ED Note-Nursing pt up to use the restroom with the POCT, taken off o2 to do so. when pt was back in bed, o2 had dropped to 82% on RA, up to 88% after sitting for 1 min, then up to 95% on 2LNC Normal [facility] ED Patient Education Noteon 01-04-2024 ED Patient Education Note ED Patient Education Note Normal [facility] ED Patient Education Note ED Patient Education Note Normal [facility] ED Patient Summaryon ED Patient Summary ED Patient Summary [place] [id number] Patient Discharge Instructions Person Information Name: CAROLINA GUTIERREZ Age: 63 Years Arrival Date: 01/04/2024 15:52:06 Discharge Diagnosis: Acidosis, lactic; Asthma exacerbation; CAP (community acquired pneumonia); Hypoxia Primary Care Physician: Berry Canales Provider Information Primary Provider: Naveen Martin DO Advanced Shredder Operator:Keisha Garsia PA-C. The exam and treatment you received in the Emergency Department were for an urgent problem and are not intended as complete care. It is important that you follow up with a doctor, nurse practitioner, or physician?s executive administrative assistant for ongoing care. If your symptoms become worse or you do not improve as expected and you are unable to reach your usual health care provider, you should return to the Emergency Department. We are available 24 hours a day. CAROLINA GUTIERREZ has been given the following list of patient education materials, prescriptions and follow-up instructions: Follow-up Instructions: In the event that this physician does not participate in your insurance network, please consult with your insurance company to find a nearby participating provider. Patient Education Materials: A MESSAGE TO ALL PATIENTS REGARDING OPIOIDS PRESCRIPTION OPIOIDS: WHAT YOU NEED TO KNOW Prescription opioids can be used to help relieve bipxuqiq-ux-ignali pain and are often prescribed following a [...] unused prescription opioids: Find your community drug take-back program or your pharmacy mail-back program, or flush them down the toilet, following guidance from the Food and Drug Administration (www.fda.gov/Drugs/R esourcesForYou). ? Visit www.cdc.gov/drugover dose to learn about the risks of opioids abuse and overdose. ? If you believe you may be struggling with addiction, tell your health certified caregiver and ask for guidance or call [facility]?S National Helpline at 5-205-774-NZMS. w Source: [place] Department of Health and Human Services/Center for Disease Control & Prevention (more content not included)... Normal [facility] ED Patient Summary ED Patient Summary [place] [id number] Patient Discharge Instructions Person Information Name: CAROLINA GUTIERREZ Age: 63 Years Arrival Date: 01/04/2024 15:52:06 Discharge Diagnosis: Asthma exacerbation; CAP (community acquired pneumonia); Hypoxia Primary Care Physician: Berry Canales Provider Information Primary Provider: Naveen Martin DO Advanced Shredder Operator:Keisha Garsia PA-C. The exam and treatment you received in the Emergency Department were for an urgent problem and are not intended as complete care. It is important that you follow up with a doctor, nurse practitioner, or physician?s executive administrative assistant for ongoing care. If your symptoms become worse or you do not improve as expected and you are unable to reach your usual health care provider, you should return to the Emergency Department. We are available 24 hours a day. CAROLINA GUTIERREZ has been given the following list of patient education materials, prescriptions and follow-up instructions: Follow-up Instructions: In the event that this physician does not participate in your insurance network, please consult with your insurance company to find a nearby participating provider. Patient Education Materials: A MESSAGE TO ALL PATIENTS REGARDING OPIOIDS PRESCRIPTION OPIOIDS: WHAT YOU NEED TO KNOW Prescription opioids can be used to help relieve qzrfjmgu-ck-jfemam pain and are often prescribed following a [...] unused prescription opioids: Find your community drug take-back program or your pharmacy mail-back program, or flush them down the toilet, following guidance from the Food and Drug Administration (www.fda.gov/Drugs/R esourcesForYou). ? Visit www.cdc.gov/drugover dose to learn about the risks of opioids abuse and overdose. ? If you believe you may be struggling with addiction, tell your health certified caregiver and ask for guidance or call [facility]?S National Helpline at 9-175-793-XCJH. r Source: US Department of Health and Human Services/Center for Disease Control & Prevention [facility] (more content not included)... Normal [facility] FT Blood GasesOrdered By: Ra louise Washington on 01-04-2024 a/A Ratio Art 57.20 % Normal >=0.80% [facility] Resp Auto SS AaDO2 Art 44.7 mm[Hg] High 5.0 - 15.0 mmHg [facility] Res p Auto SS Allens Test Positive (01/04/24 4:48 PM) Normal [facility] Resp Auto SS Base Excess Arterial 2.8 mmol/L Normal >=2.8mmol/L [facility] C Resp Auto SS cCa2+ Art 4.60 mg/dL Normal 4.40 - 5.30 mg/dL [facility] Re sp Auto SS cCl- Art 103.0 mmol/L Normal 101.0 - 111.0 mmol/L [facility] Resp Auto SS cGlu Art 182 mg/dL High 55 - 99 mg/dL [facility] Resp Auto SS cK+ Art 4.0 mmol/L Normal 3.5 - 5.3 mmol/L [facility] Res p Auto SS cLac Art 3.3 mmol/L High 0.5 - 2.2 mmol/L [facility] Res p Auto SS rn prior authorization+ Art 141.0 mmol/L Normal 135.0 - 145.0 mmol/L [facility] Resp Auto SS Drawn by KD Invalid Interpretation Code [facility] Resp Auto SS FCOHb Art 1.2 % Low 1.5 - 4.9 % [facility] Resp Auto SS Comment on above: Interpretive Data: R eference range Nonsmoker <1.5% Smoker <5.0% Heavy Smoker <9.0% FIO2 BG 21 1 Invalid Interpretation Code [facility] Resp Auto SS FMetHb Art 0.1 % Normal 0.0 - 1.9 % [facility] Resp Auto SS FO2Hb Art 91.0 % Low 92.0 - 100.0 % [facility] Resp Auto SS HCO3 (Bld) [Moles/Vol] 26.7 mmol/L High 22.0 - 26.0 mmol/L [facility] Resp Auto SS Hemoglobin (Bld) [Mass/Vol] 12.7 g/dL Normal 12.0 - 16.0 gm/dL [facility] Resp Auto SS P CO2 Arterial 36.2 mm[Hg] Normal 35.0 - 45.0 mmHg [facility] Resp Auto SS P O2 Arterial 59.6 mm[Hg] Low 80.0 - 100.0 mmHg [facility] Resp Auto SS pH (Bld) 7.470 [pH] High 7.350 - 7.450 [facility] Resp Auto SS Sample Site R Radial (01/04/24 4:48 PM) Normal [facility] Auto SS Sample Type Arterial Draw (01/04/24 4:48 PM) Normal [facility] Auto SS Lactic Acidon 01-04-2024 Lactic Acid Lvl 2.0 mmol/L Normal 0.5-2.2 [facility] Comment on above: Order Comment: Order added by EKS Rule. (FT_LACTIC_ACID_REFLEX) Adds reflex Lactic Acid 4 hours after initial if result is greater than or equal to 2.0. Performed By: #### 2 [id number] #### [facility] [address] [place] [address] Lactic Acid Lvl 2.7 mmol/L High 0.5-2.2 [facility] Comment on above: Performed By: #### 2 [id number] #### [facility] [address] [place] [address] No Panel InformationOrdered By: ANGPROCESSSERVER MICROBIOLOGY on 01-04-2024 Blood Culture Charcoal No growth at 3 days. Final to follow at 7 days. [facility] Blood Culture Charcoal No growth at 3 days. Final to follow at 7 days. [facility] PT & PTTon 01-04-2024 aPTT Coag (PPP) [Time] 25.0 second(s) Low 25.1-36.5 [facility] Comment on above: Result Comment: Para [...] the same coagulation reagent and instrumentation as [facility]. Currently there are no coagulation studies available worldwide for children to 14 days, and no normal ranges. Heparin therapeutic range (represented by Anti-Factor Xa activity of 0.2 - 0.4 U/mL) corresponds to PTT of 56.6 - 109.0 sec. Performed By: #### 1 [id number] #### [facility] [address] [place] [address] INR Coag (PPP) [Relative time] 1.03 {INR} Invalid Interpretation Code [facility] Comment on above: Result Comment: INR results are specifically intended to assess patients stabilized on long-term Anticoagulation therapy suggested INR?s ?Less Intensive Anticoagulation? 2.0 ? 3.0 Conventional Range 3.0 ? 4.5 Performed By: #### 1 [id number] #### [facility] [address] [place] [address] PT Coag (PPP) [Time] 11.5 second(s) Normal 9.4-12.5 [facility] Comment on above: Result Comment: 15 d ays - 4 weeks 1 - 5 months 6 -11 months 1- 5 years 6-10 years 11 -17 years Mean: 11.2 (9.5-12.6) Mean: 11.0 (9.7-12.8) Mean: 11.0 (9.8-13.0) Mean: 11.3 (9.9-13.4) Mean: 11.7 (10.0-14.6) Mean: 11.8 (10.0 - 14.1) Pediatric Reference ranges were obtained from a study by Reuben Robison et al. prepared from 1437 samples obtained at 7 different centers using the same coagulation reagent and instrumentation as [facility]. Currently there are no coagulation studies available worldwide for children to 14 days, and no normal ranges. Performed By: #### 1 [id number] #### [facility] [address] [place] [address] Troponin 0 Hr.on 01-04-2024 Troponin HS 4.90 pg/mL Low 10.10-27.10 [facility] Comment on above: Result Comment: The 95% CI (Confidence Interval) PPV (Positive Predictive Value) for myocardial infarction in females is 38 pg/mL, in males 51 pg/mL. The results should be used in conjunction with clinical conditions of myocardial infarction. (Access High Sensitivity Troponin I Instructions For Use, [employer], January 2018) Performed By: #### 1 [id number] #### [facility] [address] [place] [address] Troponin 1 Hr.on 01-04-2024 Troponin HS 5.90 pg/mL Low 10.10-27.10 [facility] Comment on above: Order Comment: @ 174 7 Result Comment: The 95% CI (Confidence Interval) PPV (Positive Predictive Value) for myocardial infarction in females is 38 pg/mL, in males 51 pg/mL. The results should be used in conjunction with clinical conditions of myocardial infarction. (Access High Sensitivity Troponin I Instructions For Use, [employer], January 2018) Performed By: #### 1 [id number] #### [facility] [address] [place] [address] eGFRon 01-04-2024 eGFR 96 mL/min/1.73 m2 Normal >=59 [facility] Comment on above: Order Comment: Order added by Discern Expert. Performed By: #### 1 [id number] #### [facility] [address] [place] [address] Ambulatory Visit Summaryon 0 12-31-2023 Ambulatory Visit Summary Ambulatory Visit Summary CAROLINA GUTIERREZ :1960 Visit Date:12/31/2023 Ambulatory Visit Instructions Your Diagnosis Left lower lobe pneumonia Cough Wheezing Non-smoker Adult BMI 38.0-38.9 kg/sq m Your Care Team Attending Physician - Berry Canales Primary Care Physician - Berry Canales This Is Your Medications List acetaminophen-hydroc odone (acetaminophen-hydro codone 325 mg-5 mg oral tablet) albuterol (ProAir RespiClick 90 mcg/inh inhalation powder) albuterol-ipratropiu m (DuoNeb 2.5 mg-0.5 mg/3 mL Soln-Inh) albuterol-ipratropiu m (DuoNeb 2.5 mg-0.5 mg/3 mL Soln-Inh) benzonatate (Tessalon 100 mg Cap) celecoxib (celecoxib 200 mg Cap) denosumab (Prolia) dextromethorphan-pro methazine (dextromethorphan-pr omethazine 15 mg-6.25 mg/5 mL Oral Syrup 5 mL) doxycycline (doxycycline monohydrate 100 mg oral capsule) fluticasone nasal (Flonase 0.05 mg/inh nasal spray) homatropine-hydrocod one (homatropine-hydroco done 1.5 mg-5 mg/5 mL oral syrup) levofloxacin (Levaquin) levofloxacin (levofloxacin 750 mg Tab) levothyroxine (levothyroxine 137 mcg (0.137 mg) Tab) montelukast (montelukast 10 mg Tab) ondansetron (Zofran 4 mg Tab) pantoprazole (Pantoprazole [address] Tab) predniSONE predniSONE (predniSONE 20 mg Tab) predniSONE (predniSONE 20 mg Tab) semaglutide (Ozempic (1 mg dose)) tiotropium (Spiriva Respimat 1.25 mcg/inh inhalation aerosol) upadacitinib (Rinvoq 15 mg oral tablet, extended release) Procedures Performed EGD (esophagogastroduode noscopy) gastric outlet reduction (05/21/2022), Colonoscopy (05/09/2021), EGD - Esophagogastroduoden oscopy (05/09/2021), Cataract extraction, Cholecystectomy, Foot repair, Hysterectomy, Knee replacement, Shoulder, Tonsillectomy and adenoidectomy; age 12 or over. Discharge Vitals Temperature (Temporal Artery) 37.0 ?C Heart Rate (Peripheral) 89 Respiratory Rate 22 Blood Pressure 144/84 Height 154 cm Height 61 in Weight 90.2 kg Weight 198.44 lb BMI 38.03 What to do next Scheduled Follow-Up Appointments Saturday 3:20 PM EDT With: Berry Canales Where: [facility] [place] Normal [facility] Medicine Office/Clini c Noteon 12-31-2023 Family Medicine Office/Clinic Note Family Medicine Office/Clinic Note HPI Staff Carolina is a 63 year old female presenting for ER follow up ER followup: Hospital: [facility] Visit date: 12/29/23 Symptoms the patient presented with: SOB, cough. Pt had been to 2 different urgent cares prescribed steroids and ATB's Symptom onset/injury onset: Testing Performed: EKG, x-ray left lower lobe infiltrate New medications: DuoNeb, homatropine-hydrocod one, levofloxacin 750mg , prednisone 20mg. Still taking all of this... was dx with left lung pneumonia History of Present Illness pt presents today for ER follow up for pneumonia Review of Systems PHQ Score Initial Depression Screen Score: 0 SCORE Physical Exam Vitals & Measurements T: 37.0 ?C(Temporal Artery) HR: 89(Peripheral) RR: 22 BP: 144/84 SpO2: 92% HT: 61 in HT: 154 cm WT: 90.2 kg WT: 198.44 lb BMI: 38.03 General: alert, no acute distress ENMT: oral mucosa moist, no pharyngeal erythema or exudate Cardiovascular: regular rate and rhythm, normal peripheral perfusion Respiratory: Lungs expiratory wheezes, respirations non labored, deep moist cough Extremities: no deformity, no trauma Neurological: oriented x 4, LOC appropriate for age, CN II-XII intact, motor strength equal & normal bilaterally, speech normal Assessment/Plan 1. Left lower lobe pneumonia (J18.9: Pneumonia, unspecified organism) pt presents today for ER follow up for pneumonia of left lower lobe. was started on levaquin and steroids as well as cough syrup and benzonate. was given the option to be admitted for IV antiobitics but chose to go home instead. wheezing noted throughout all lung warner. will give 60 mg kenalog, cough syrup refill. pt to continue antibiotics. if symptoms worsen she will go back to hospital. 2. Cough (R05.9: Cough, unspecified) see above 3. Wheezing (R06.2: Wheezing) see above 4. Non-smoker (Z78.9: Other specified health status) continue not smoking 5. Adult BMI 38.0-38.9 kg/sq m (Z68.38: Body mass index [BMI] 38.0-38.9, adult) BMI education given Orders: dextromethorphan-pro methazine, 5 mL, Oral, q6hr for cough, 120 mL, Refill(s) 0, [facility]/pharmacy #[id number], 154, cm, 12/31/23 14:02:00 EDT, Height/Length Dosing, 90.2, kg, 12/31/23 14:02:00 EDT, Weight Dosing Follow-up No qualifying data available Problem List/Past Medical History Ongoing Adult BMI 38.0-38.9 kg/sq m Allergic rhinitis Anemia Annual physical exam Anti-citrullinated protein antibody detected Bilateral otitis media BMI 40.0-44.9, adult Bronchitis Chronic peripheral venous hypertension with lower extremity complication Chronic sinusitis Colitis Cough Derangement of knee Diverticular disease Esophageal web Exposure to COVID-19 virus Fluid level behind tympanic membrane of both ears Gastroesophageal reflux disease without esophagitis Hemorrhoids Hx of pulmonary embolus Hypothyroidism Hypoxemia Left lower lobe pneumonia Low hemoglobin Lung nodules Moderate asthma without complication Morbid obesity with [...] Dysphagia Loose stools Nausea Procedure/Surgical History EGD (esophagogastroduode noscopy) gastric outlet reduction (05/21/2022), Colonoscopy (05/09/2021), EGD - Esophagogastroduoden oscopy (05/09/2021), Cataract extraction, Cholecystectomy, Foot repair, Hysterectomy, Knee replacement, Shoulder, Tonsillectomy and adenoidectomy; age 12 or over. Medications acetaminophen-hydroc odone 325 mg-5 mg oral tablet, 1 tab(s), Oral, q4hr, PRN celecoxib 200 mg Cap, 200 mg= 1 cap(s), Oral, BID dextromethorphan-pro methazine 15 mg-6.25 mg/5 mL Oral Syrup 5 mL, 5 mL, Oral, q6hr, PRN doxycycline monohydrate 100 mg oral capsule, 100 mg= 1 cap(s), Oral, BID DuoNeb 2.5 mg-0.5 mg/3 mL Soln-Inh, 3 mL, Inhalation, QID DuoNeb 2.5 mg-0.5 mg/3 mL Soln-Inh, 3 mL, NEB, 6x/Day, 1 refills Flonase 0.05 mg/inh nasal spray, 2 spray(s), Nasal, Daily homatropine-hydrocod one 1.5 mg-5 mg/5 mL oral syrup, 5 mL, Oral, q4hr, PRN Levaquin, q24hr levofloxacin 750 mg Tab, 750 mg= 1 tab(s), Oral, q24hr levothyroxine 137 mcg (0.137 mg) Tab, See Instructions, 4 refills montelukast 10 mg Tab, See Instructions Ozempic (1 mg dose), See Instructions Pantoprazole [address] Tab, 40 mg= 1 tab(s), Oral, Daily, 3 refills predniSONE, Oral, Daily predniSONE 20 mg Tab, 40 mg= 2 tab(s), Oral, Daily predniSONE 20 mg Tab, See Instructions ProAir RespiClick 90 mcg/inh inhalation powder, 2 puff(s), Inhalation, q4hr, PRN, 11 refills Prolia, 60 mg, SubCutaneous, q6mo Rinvoq 15 mg oral tablet, extended release Spiriva Respimat 1.25 mcg/inh inhalation aeros (more content not included)... Normal [facility] Comment on above: Result Comment: Elec tronically Signed By: Berry Canales\.br\Date and Time Signed: 12/31/23 14:45 EDT ED Note-Physicianon 12-30-19 ED Note-Physician ED Note-Physician Basic Information Time Seen: Isaura SAMANO, Edgar Dia 12/29/2023 20:31 Chief Complaint pt arrives for c/o SOB and cough x 1 week. seen two different urgent cares and was put on steriods and atb's for pneumonia. pt states hx asthma History of Present Illness A 63-year-old female reports emerged department with chief complaint of shortness of breath and cough that has been going on for about a week. Reports that she been seen at 2 different urgent cares, and prescribed on steroids, as well as antibiotics for pneumonia. Reports does have a history of asthma and thinks this is a asthma flareup. States that she was recently started on doxycycline as well as 40 mg of prednisone, without any improvement. She states that she has not had any fevers. Denies any chest pain. She states that she is not any blood thinners. Denies any abdominal pain. Reports that she has been using breathing treatments at home, without much improvement. Review of Systems No other aggravating or relieving factors no other associated symptoms no other prior treatments or complaints. Family: Reviewed and noncontributory Social: lives at home Review of systems negative unless otherwise specified in the HPI. Physical Exam Vitals & Measurements T: 36.4 ?C(Oral) HR: 121(Monitored) RR: 20 BP: 157/99 SpO2: 98% HT: 144 cm WT: 92.3 kg BMI: 44.51 General: The patient appears well and in no apparent distress. Patient is resting comfortably on bed. Afebrile Skin: Warm, dry, no pallor noted. Head: Normocephalic, atraumatic Neck: No JVD Eye: PERRLA, EOMI ENT: Moist mucus membranes Cardiovascular: Tachycardic rate normal peripheral perfusion Respiratory: No respiratory distress no accessory muscle use no obvious audible wheezing. expiratory wheezing heard bilaterally Chest Wall: no deformity Musculoskeletal: normal ROM, no deformity, no swelling GI: No obvious distention soft nontender nondistended no guarding rebounding or rigidity Neurological: A&O moves all extremities equal strength and symmetry Psychiatric: Cooperative and appropriate Medical Decision Making MEDICAL DECISION MAKING Number and Complexity of Problems Differential Diagnosis: [] [facility] Data External documents reviewed: [] My EKG interpretation: Reviewed My CT interpretation: [] My X-ray interpretation: Reviewed My Ultrasound interpretation: [] Decision rules/scores evaluated: [] Discussed with: [] Treatment and Disposition ED Course: 63-year-old female reports emergency department with chief complaint of shortness of breath and cough. Reports been going on for a week. Reports recently started on doxycycline, as well as 40 mg of prednisone for asthma as well as pneumonia. She states that she just feels like she is not getting better. When to get evaluated. Exam of the patient does reveal she is somewhat tachycardic, but did receive breathing treatments recently. She does have expiratory wheezing bilaterally. She is afebrile. She is working to breathe very mildly, but respirations are increased. Due to concerns, I did do 2 breathing treatments here, as well as a full respiratory workup with blood cultures. After breathing treatments were given, patient did feel much improved. Respiratory rate did improve. We did do lab work, which did show elevated white count, but currently on steroids. Rest the labs are relatively benign. Negative troponin. Chest x-ray was revealing for left likely left lower lobe infiltrate. EKG reviewed and noted. Due to the patient's symptoms, I did offer admission. Patient stated that she would rather go home. I discussed that she is high risk, but if she wants to be treated outpatient, with improvement of her symptoms here as well as we will start a higher dose of steroids on her, as well as add Levaquin as antibiotic coverage. Patient was agreeable with this. I discussed strict return precautions, as well as close follow-up with PCP. She was understanding. Discussed return precautions. Follow-up with your primary care provider in 3 to 5 days. If symptoms worsen, do not improve, or new symptoms arise please report back to emergency department for further evaluation. The patient was understanding and agreeable to plan moving forward. Shared decision making: [] Code status: [] Assessment/Plan Asthma exacerbation (J45.901: Unspecified asthma with (acute) exacerbation) CAP (community acquired pneumonia) (J18.9: Pneumonia, unspecified organism) Orders: albuterol-ipratropiu m, 3 mL, Soln-Inh, Inhalation, Once, Stop date 12/29/23 20:40:00 EDT, STAT, Start date 12/29/23 20:40:00 EDT albuterol-ipratropiu m, 3 mL, Soln-Inh, Inhalation, Once, Stop date 12/29/23 20:41:00 EDT, STAT, Start date 12/29/23 20:41:00 EDT albuterol-ipratropiu m, 3 mL, Inhalation, QID, 60 EA, Refill(s) 0, [id number], 144, cm, 12/29/23 20:32:00 EDT, Height/Length Dosing, 92.3, kg, 12/29/23 20:32:00 EDT, Weight Dosing homatropine-hydrocod one, 5 mL, Ora (more content not included)... Normal [facility] Comment on above: Result Comment: Elec tronically Signed By: Edgar Delarosa PA-C\.br\Date and Time Signed: 12/29/23 22:31 EDT\.br\Electronically Co-Signed By: Gaston Contreras DO\.br\Date and Time Co-Signed: 12/30/23 06:08 EDT XR Chest 2 Viewson XR Chest 2 Views Exam Date/Time: 12/29/2023 21:47 EDT Reason for Exam: Asthma Report IMPRESSION: NO EVIDENCE OF ACTIVE CHEST DISEASE. CLINICAL HISTORY: Asthma. Shortness of breath. Cough. COMPARISON: 09/07/2022. COMMENT: The heart is within normal limits in size. The mediastinum is unremarkable. The lungs appear clear. No infiltration nor pleural effusion is evident. Partially included within the [id number] is a metallic left glenohumeral shoulder prosthesis. No significant change is noted when compared to the prior exam. Ordering Provider: Edgar Delarosa FINAL REPORT Dictated: 12/30/2023 7:41 am Franklin Carter M.D. Signed (Electronic Signature): 12/30/2023 7:41 am Signed by: Franklin Carter M.D. Transcribed by: FRANCISCA Technologist: ARIANE Technical Comments Radiation Dose: Ka,r in mGy = na DAP = na Normal [facility] BMPon 12-29-2023 Anion gap [Moles/Vol] 14 mmol/L Normal 6-16 [facility] Comment on above: Performed By: #### 2 [id number] #### [facility] [address] [place] [address] Calcium [Mass/Vol] 8.6 mg/dL Low 8.9-11.1 [facility] Comment on above: Performed By: #### 2 [id number] #### [facility] [address] [place] [address] Chloride [Moles/Vol] 104 mmol/L Normal 101-111 [facility] Comment on above: Performed By: #### 2 [id number] #### [facility] [address] [place] [address] CO2 [Moles/Vol] 27 mmol/L Normal 21-31 [facility] Comment on above: Performed By: #### 2 [id number] #### [facility] [address] [place] [address] Creatinine [Mass/Vol] 0.7 mg/dL Normal 0.5-1.3 [facility] Comment on above: Performed By: #### 2 [id number] #### [facility] [address] [place] [address] Glucose [Mass/Vol] 205 mg/dL High 55-199 [facility] Comment on above: Performed By: #### 2 [id number] #### [facility] [address] [place] [address] Potassium [Moles/Vol] 4.0 mmol/L Normal 3.5-5.3 [facility] Comment on above: Performed By: #### 2 [id number] #### [facility] [address] [place] [address] Sodium [Moles/Vol] 141 mmol/L Normal 135-145 [facility] Comment on above: Performed By: #### 2 [id number] #### [facility] [address] [place] [address] Urea nitrogen [Mass/Vol] 21 mg/dL Normal 5-21 [facility] Comment on above: Performed By: #### 2 [id number] #### [facility] [address] [place] [address] Urea nitrogen/Creatinine [Mass ratio] 30 No Units High 10-20 [facility] Comment on above: Performed By: #### 2 [id number] #### [facility] [address] [place] [id number] BNPon 12-29-2023 Int Ctr BNP Pass Normal [facility] Comment on above: Performed By: #### 1 [id number] #### [facility] [address] [place] [address] Natriuretic peptide B (Bld) [Mass/Vol] 10 pg/mL Normal 5-80 [facility] Comment on above: Performed By: #### 1 [id number] #### [facility] [address] [place] [id number] CBC w/ Auto Diffon 4 Basophils/100 WBC (Bld) 0.4 % Normal 0.0-2.0 [facility] Comment on above: Performed By: #### 2 [id number] #### [facility] [address] [place] [id number] Basophils/Leukocytes Auto (Bld) [Pure # fraction] 0.1 E9/L Normal 0.0-0.2 [facility] Comment on above: Performed By: #### 2 [id number] #### [facility] [address] [place] [id number] Eosinophils (Bld) [#/Vol] 0.0 E9/L Normal 0.0-0.5 [facility] Comment on above: Performed By: #### 2 [id number] #### [facility] [address] [place] [address] Eosinophils/100 WBC (Bld) 0.0 % Normal 0.0-8.0 [facility] Comment on above: Performed By: #### 2 [id number] #### [facility] [address] [place] [address] Lymphocytes (Bld) [#/Vol] 0.6 E9/L Low 1.0-4.0 [facility] Comment on above: Performed By: #### 2 [id number] #### [facility] [address] [place] [address] Lymphocytes/100 WBC (Bld) 3.8 % Low 14.0-50.0 [facility] Comment on above: Performed By: #### 2 [id number] #### [facility] [address] [place] [address] Monocytes (Bld) [#/Vol] 0.5 E9/L Normal 0.2-1.0 [facility] Comment on above: Performed By: #### 2 [id number] #### [facility] [address] [place] [address] Neutrophils (Bld) [#/Vol] 15.6 E9/L High 2.0-7.5 [facility] Comment on above: Performed By: #### 2 [id number] #### [facility] [address] [place] [address] Neutrophils/100 WBC (Bld) 92.8 % High 36.0-75.0 [facility] Comment on above: Performed By: #### 2 [id number] #### [facility] [address] [place] [address] Erythrocyte distribution width (RBC) [Ratio] 15.8 % High 10.9-14.2 [facility] Comment on above: Performed By: #### 2 [id number] #### [facility] [address] [place] [address] Hematocrit (Bld) [Volume fraction] 39.9 % Normal 34.0-46.0 [facility] Comment on above: Performed By: #### 2 [id number] #### [facility] [address] [place] [address] Hemoglobin (Bld) [Mass/Vol] 13.2 g/dL Normal 12.0-16.0 [facility] Comment on above: Performed By: #### 2 [id number] #### [facility] [address] [place] [address] MCH (RBC) [Entitic mass] 29.2 pg Normal 27.0-34.0 [facility] Comment on above: Performed By: #### 2 [id number] #### [facility] [address] [place] [address] MCHC (RBC) [Mass/Vol] 33.1 g/dL Normal 31.4-36.0 [facility] Comment on above: Performed By: #### 2 [id number] #### [facility] [address] [place] [address] MCV (RBC) [Entitic vol] 88.0 fL Normal 80.0-100.0 [facility] Comment on above: Performed By: #### 2 [id number] #### [facility] [address] [place] [address] Platelet 306.0 E9/L Normal 150.0-500.0 [facility] Comment on above: Performed By: #### 2 [id number] #### [facility] [address] [place] [address] Platelet mean volume (Bld) [Entitic vol] 6.9 fL Normal 6.4-10.8 [facility] Comment on above: Performed By: #### 2 [id number] #### [facility] [address] [place] [address] RBC (Bld) [#/Vol] 4.5 E12/L Normal 4.3-5.9 [facility] Comment on above: Performed By: #### 2 [id number] #### [facility] [address] [place] [address] WBC corrected for nucl RBC Auto (Bld) [#/Vol] 16.9 E9/L High 4.0-11.0 [facility] Comment on above: Performed By: #### 2 [id number] #### [facility] [address] [place] [address] CHEMISTRYOrdered By: SYSTEM SYSTEM on 12-29-2023 Troponin HS 3.40 pg/mL Low 10.10 - 27.10 pg/mL [facility] Comment on above: Interpretive Data: T he 95% CI (Confidence Interval) PPV (Positive Predictive Value) for myocardial infarction in females is 38 pg/mL, in males 51 pg/mL. The results should be used in conjunction with clinical conditions of myocardial infarction. (Access High Sensitivity Troponin I Instructions For Use, [employer], January 2018) Anion gap [Moles/Vol] 14 mmol/L Normal 6 - 16 mEq/L [facility] Calcium [Mass/Vol] 8.6 mg/dL Low 8.9 - 11.1 mg/dL [facility] Chloride [Moles/Vol] 104 mmol/L Normal 101 - 111 mmol/ L [facility] CO2 [Moles/Vol] 27 mmol/L Normal 21 - 31 mmol/L Remis ol Chem Creatinine [Mass/Vol] 0.7 mg/dL Normal 0.5 - 1.3 mg/dL [facility] eGFR 96 mL/min/1.73 m2 Normal >=59mL/min /1.73 m2 [facility] Glucose [Mass/Vol] 205 mg/dL High 55 - 199 mg/dL Re misol Chem Potassium [Moles/Vol] 4.0 mmol/L Normal 3.5 - 5.3 mmol/L [facility] Sodium [Moles/Vol] 141 mmol/L Normal 135 - 145 mmol/L [facility] Troponin HS 4.20 pg/mL Low 10.10 - 27.10 pg/mL [facility] Comment on above: Interpretive Data: T he 95% CI (Confidence Interval) PPV (Positive Predictive Value) for myocardial infarction in females is 38 pg/mL, in males 51 pg/mL. The results should be used in conjunction with clinical conditions of myocardial infarction. (Access High Sensitivity Troponin I Instructions For Use, [employer], January 2018) Urea nitrogen [Mass/Vol] 21 mg/dL Normal 5 - 21 mg/dL [facility] Urea nitrogen/Creatinine [Mass ratio] 30 mg/mg High 10 - 20 [facility] CHEMISTRYOrdered By: Enedina nguyen on 12-29-2023 Natriuretic peptide B (Bld) [Mass/Vol] 10 pg/mL Normal 5 - 80 pg/mL [facility] COAGULATIONOrdered By: Enedina Padgett on 12-29-2023 aPTT Coag (PPP) [Time] 26.9 s Normal 25.1 - 36.5 second(s) [facility] Comment on above: Interpretive Data: P arameter 15 days - 4 weeks 1 - 5 months 6 - 11 months 1 - 5 years 6 - 10 years 11 - 17 years PTT Mean: 35.4 (27.6-45.6) Mean: 33.5 (24.8-40.7) Mean: 32.4 (25.1-40.7) Mean: 31.6 (24.0-39.2) Mean: 31.6 (26.9-38.7) Mean: 31.0 (24.6-38.4) Pediatric Reference ranges were obtained from a study by Reuben Robison et alYury prepared from 1437 samples obtained at 7 different centers using the same coagulation reagent and instrumentation as [facility]. Currently there are no coagulation studies available worldwide for children to 14 days, and no normal ranges. Heparin therapeutic range (represented by Anti-Factor Xa activity of 0.2 - 0.4 U/mL) corresponds to PTT of 56.6 - 109.0 sec. INR Coag (PPP) [Relative time] 1.02 {INR} Invalid Interpretation Code [facility] Comment on above: Interpretive Data: I NR results are specifically intended to assess patients stabilized on long-term Anticoagulation therapy suggested INR s Less Intensive Anticoagulation 2.0 3.0 Conventional Range 3.0 4.5 PT Coag (PPP) [Time] 11.4 s Normal 9.4 - 1 2.5 second(s) [facility] Comment on above: Interpretive Data: 1 5 days - 4 weeks 1 - 5 months 6 -11 months 1-5 years 6-10 years 11 -17 years Mean: 11.2 (9.5-12.6) Mean: 11.0 (9.7-12.8) Mean: 11.0 (9.8-13.0) Mean: 11.3 (9.9-13.4) Mean: 11.7 (10.0-14.6) Mean: 11.8 (10.0 - 14.1) Pediatric Reference ranges were obtained from a study by kaycee Lawrence alYury prepared from 1437 samples obtained at 7 different centers using the same coagulation reagent and instrumentation as [facility]. Currently there are no coagulation studies available worldwide for children to 14 days, and no normal ranges. ED Clinical Summaryon 2023 ED Clinical Summary ED Clinical Summary [place] [id number] ED Clinical Summary Person Information Name: CAROLINA GUTIERREZ [place] Age: 63 Years : 1960 Sex: Female Language: Samoan PCP: Silvestre Benavides MD Marital Status: Phone: [phone] Visit Id: Visit Reason: Cough; Shortness of breath; SOB, COUGH Speciality: Acuity: 2 Enc Type: Emergency Med Service: Emergency Arrival: 12/29/2023 20:26:48 Discharge: 12/29/2023 22:31:03 LOS: 000 02:05 Checkin: 12/29/2023 20:26:48 Checkout: 12/29/2023 22:31:03 Dispo Type: Home (Routine DC) EVENTS: Event Name Event Status Request Date/Time Start Date/Time Complete Date/Time Arrive Complete 12/29/2023 20:26:48 12/29/2023 20:26:48 12/29/2023 20:26:48 Document Home Meds Request 12/29/2023 20:26:48 Triage Complete 12/29/2023 20:26:48 12/29/2023 20:32:16 12/29/2023 20:32:16 Bed Assign Complete 12/29/2023 20:28:05 12/29/2023 20:28:05 12/29/2023 20:28:05 Dr Exam Complete 12/29/2023 20:28:05 12/29/2023 20:31:03 12/29/2023 20:31:03 RN Exam Complete 12/29/2023 20:28:05 12/29/2023 20:42:24 12/29/2023 20:42:24 Registration Complete 12/29/2023 20:29:22 12/29/2023 20:29:22 12/29/2023 20:29:22 Reg Complete Request 12/29/2023 20:29:22 Reg Bed Request Complete 12/29/2023 20:29:22 12/29/2023 20:29:22 12/29/2023 20:29:22 EKG Complete 12/29/2023 20:29:32 12/29/2023 20:31:46 Registration Complete 12/29/2023 20:31:03 12/29/2023 20:59:56 12/29/2023 20:59:56 Isolation Screening Request 12/29/2023 20:32:16 Dr Exam Complete 12/29/2023 20:40:14 12/29/2023 20:40:14 12/29/2023 20:40:14 Pending Labs Collected 12/29/2023 20:40:46 Lab Collected 12/29/2023 20:40:46 Meds Admin Complete 12/29/2023 20:40:46 12/29/2023 20:50:51 Patient Care Complete 12/29/2023 20:40:46 12/29/2023 20:43:10 X-Ray Complete 12/29/2023 20:40:46 12/29/2023 21:37:18 12/29/2023 21:47:44 RT Request 12/29/2023 20:40:46 RT Tx/ABG Request 12/29/2023 20:40:47 RT Tx/ABG Request 12/29/2023 20:40:48 Meds Admin Complete 12/29/2023 20:41:16 12/29/2023 20:50:52 RT Tx/ABG Request 12/29/2023 20:41:17 RT Tx/ABG Request 12/29/2023 20:41:17 Pending Labs Complete 12/29/2023 20:51:26 12/29/2023 20:51:26 12/29/2023 21:14:03 Lab Complete 12/29/2023 20:51:27 12/29/2023 20:51:27 12/29/2023 21:14:03 Wet Read Request 12/29/2023 21:47:44 Meds Admin Complete 12/29/2023 22:08:44 12/29/2023 22:19:09 Discharge Complete 12/29/2023 22:12:02 12/29/2023 22:31:10 12/29/2023 22:31:10 Transfer Complete 12/29/2023 22:31:11 12/29/2023 22:31:11 12/29/2023 22:31:11 ADDRESS: [address] [place] [id number] PHYS DOC NOTES: MEDICAL INFORMATION: Prescriptions Given: New Medications [facility]/pharmacy #[id number], [address], [place] [id number], [phone] homatropine-hydrocod one (homatropine-hydroco done 1.5 mg-5 mg/5 mL oral syrup) 5 Milliliter By Mouth every 4 hours as needed for cough. Refills: 0. levofloxacin (levofloxacin 750 mg Tab) 1 Tablets By Mouth every 24 hours for 7 Days. Refills: 0. Medications to Continue Taking That Have Changed [facility]/pharmacy #[id number], [address], [place] [id number], [phone] START: albuterol-ipratropiu m (DuoNeb 2.5 mg-0.5 mg/3 mL Soln-Inh) 3 Milliliter Inhalation 4 times a day. Refills: 0. START: predniSONE (predniSONE 20 mg Tab) Take 3 tabs for 3 days, then 2 tabs for 3 days, then 1 tab for 3 days.. Refills: 0. Other Medications START: albuterol-ipratropiu m (DuoNeb 2.5 mg-0.5 mg/3 mL Soln-Inh) 3 Milliliter Nebulized inhalation (aerosol) 6 times a day. Refills: 1. START: predniSONE (predniSONE 20 mg Tab) 2 Tablets By Mouth every day for 5 Days. Refills: 0. Medications to Continue with No Changes Other Medications albuterol (ProAir RespiClick 90 mcg/inh inhalation powder) 2 Puffs Inhalation every 4 hours as needed for wheezing or SOB. Refills: 11. benzonatate (Tessalon 100 mg Cap) 1 Capsules By Mouth 3 times a day for 7 Days. Refills: 0. celecoxib (celecoxib 200 mg Cap) 1 Capsules By Mouth 2 times a day. denosumab (Prolia) 60 Milligram Subcutaneous every 6 months. doxycycline (doxycycline monohydrate 100 mg oral capsule) 1 Capsules By Mouth 2 times a day for 7 Days. Refills: 0. fluticasone nasal (Flonase 0.05 mg/inh nasal spray) 2 Sprays Nasal Inhalation every day. levothyroxine (levothyroxine 137 mcg (0.137 mg) Tab) TAKE 1 TABLET BY MOUTH EVERY DAY. Refills: 4. montelukast (montelukast 10 mg Tab) TAKE 1 TABLET BY MOUTH TWICE A DAY. Refills: 1. ondansetron (Zofran 4 mg Tab) 1 Tablets By Mouth every 6 hours. Refills: 1. pantoprazole (Pantoprazole [address] Tab) 1 Tablets By Mouth every day for 90 Days. Refills: 3. semaglutide (Ozempic (1 mg dose)) 2 mg SubCutaneous qWeek, ordered by another provider. tiotropium (Spiriva Respimat 1.25 mcg/inh inhalation aerosol) upadacitinib (Rinvoq 15 mg oral tablet, extended release) PATIENT EDUCATION INFORMATION: Instructions: Community-Acquired Pneumonia, Adult, Easy-to (more content not included)... Normal [facility] ED Patient Summaryon 024 ED Patient Summary ED Patient Summary [place] [id number] Patient Discharge Instructions Person Information Name: CAROLINA GUTIERREZ Age: 63 Years Arrival Date: 12/29/2023 20:26:48 Discharge Diagnosis: Asthma exacerbation; CAP (community acquired pneumonia) Primary Care Physician: Silvestre Benavides MD Provider Information Primary Provider: Gaston Contreras DO Advanced Shredder Operator:None The exam and treatment you received in the Emergency Department were for an urgent problem and are not intended as complete care. It is important that you follow up with a doctor, nurse practitioner, or physician?s executive administrative assistant for ongoing care. If your symptoms become worse or you do not improve as expected and you are unable to reach your usual health care provider, you should return to the Emergency Department. We are available 24 hours a day. CAROLINA GUTIERREZ has been given the following list of patient education materials, prescriptions and follow-up instructions: Follow-up Instructions: With: Address: When: Silvestre Benavides In 3 days 01/01/2024 Comments: Call for diagnosis based follow up In the event that this physician does not participate in your insurance network, please consult with your insurance company to find a nearby participating provider. Patient Education Materials: Community-Acquired Pneumonia, Adult, Ursw-ug-Hflh; Asthma, Adult, Azbl-[id number] A MESSAGE TO ALL PATIENTS REGARDING OPIOIDS PRESCRIPTION OPIOIDS: WHAT YOU NEED TO KNOW Prescription opioids can be used to help relieve dbwdtedq-no-ktyrsp pain and are often prescribed following a [...] unused prescription opioids: Find your community drug take-back program or your pharmacy mail-back program, or flush them down the toilet, following guidance from the Food and Drug Administration (www.fda.gov/Drugs/R esourcesForYou). ? Visit www.cdc.gov/drugover dose to learn about the risks of opioids abuse and overdose. ? If you believe you may be struggling with addiction, tell your health certified caregiver and ask for guidance or (more content not included)... Normal [facility] HEMATOLOGYOrdered By: SYSTEM SYSTEM on 12-29-2023 Basophils/100 WBC (Bld) 0.4 % Normal 0.0 - 2.0 % [facility] Basophils/Leukocytes Auto (Bld) [Pure # fraction] 0.1 E9/L Normal 0.0 - 0.2 E9/L [facility] Eosinophils (Bld) [#/Vol] 0.0 E9/L Normal 0.0 - 0.5 E9/L [facility] Eosinophils/100 WBC (Bld) 0.0 % Normal 0.0 - 8.0 % [facility] Erythrocyte distribution width (RBC) [Ratio] 15.8 % High 10.9 - 14.2 % [facility] Hematocrit (Bld) [Volume fraction] 39.9 % Normal 34.0 - 46.0 % [facility] Hemoglobin (Bld) [Mass/Vol] 13.2 g/dL Normal 12.0 - 16.0 gm/dL [facility] Lymphocytes (Bld) [#/Vol] 0.6 E9/L Low 1.0 - 4.0 E9/L [facility] Lymphocytes/100 WBC (Bld) 3.8 % Low 14.0 - 50.0 % [facility] MCH (RBC) [Entitic mass] 29.2 pg Normal 27.0 - 34.0 pg [facility]e MCHC (RBC) [Mass/Vol] 33.1 g/dL Normal 31.4 - 36.0 gm/dL [facility] MCV (RBC) [Entitic vol] 88.0 fL Normal 80.0 - 100.0 fL [facility] Monocytes (Bld) [#/Vol] 0.5 E9/L Normal 0.2 - 1.0 E9/L [facility] Monocytes/100 WBC (Bld) 3.0 % Low 4.0 - 14.0 % [facility] Neutrophils (Bld) [#/Vol] 15.6 E9/L High 2.0 - 7.5 E9/L [facility] Neutrophils/100 WBC (Bld) 92.8 % High 36.0 - 75.0 % [facility] Platelet 306.0 E9/L Normal 150.0 - 500.0 E9/L [facility] Platelet mean volume (Bld) [Entitic vol] 6.9 fL Normal 6.4 - 10.8 fL [facility] RBC (Bld) [#/Vol] 4.5 E12/L Normal 4.3 - 5.9 E12/L Re misol Heme WBC corrected for nucl RBC Auto (Bld) [#/Vol] 16.9 E9/L High 4.0 - 11.0 E9/L [facility] PT & PTTon 12-29-2023 aPTT Coag (PPP) [Time] 26.9 second(s) Normal 25.1-36.5 [facility] Comment on above: Result Comment: Para [...] the same coagulation reagent and instrumentation as [facility]. Currently there are no coagulation studies available worldwide for children to 14 days, and no normal ranges. Heparin therapeutic range (represented by Anti-Factor Xa activity of 0.2 - 0.4 U/mL) corresponds to PTT of 56.6 - 109.0 sec. Performed By: #### 1 [id number] #### [facility] [address] [place] [address] INR Coag (PPP) [Relative time] 1.02 {INR} Invalid Interpretation Code [facility] Comment on above: Result Comment: INR results are specifically intended to assess patients stabilized on long-term Anticoagulation therapy suggested INR?s ?Less Intensive Anticoagulation? 2.0 ? 3.0 Conventional Range 3.0 ? 4.5 Performed By: #### 1 [id number] #### [facility] [address] [place] [address] PT Coag (PPP) [Time] 11.4 second(s) Normal 9.4-12.5 [facility] Comment on above: Result Comment: 15 d ays - 4 weeks 1 - 5 months 6 -11 months 1- 5 years 6-10 years 11 -17 years Mean: 11.2 (9.5-12.6) Mean: 11.0 (9.7-12.8) Mean: 11.0 (9.8-13.0) Mean: 11.3 (9.9-13.4) Mean: 11.7 (10.0-14.6) Mean: 11.8 (10.0 - 14.1) Pediatric Reference ranges were obtained from a study by Reuben Robison et al. prepared from 1437 samples obtained at 7 different centers using the same coagulation reagent and instrumentation as [facility]. Currently there are no coagulation studies available worldwide for children to 14 days, and no normal ranges. Performed By: #### 1 [id number] #### [facility] [address] [place] [address] Troponin 0 Hr.on 12-29-2023 Troponin HS 4.20 pg/mL Low 10.10-27.10 [facility] Comment on above: Result Comment: The 95% CI (Confidence Interval) PPV (Positive Predictive Value) for myocardial infarction in females is 38 pg/mL, in males 51 pg/mL. The results should be used in conjunction with clinical conditions of myocardial infarction. (Access High Sensitivity Troponin I Instructions For Use, [employer], January 2018) Performed By: #### 1 [id number] #### [facility] [address] [place] [address] Troponin 1 Hr.on 12-29-2023 Troponin HS 3.40 pg/mL Low 10.10-27.10 [facility] Comment on above: Order Comment: due a t 2144 Result Comment: The 95% CI (Confidence Interval) PPV (Positive Predictive Value) for myocardial infarction in females is 38 pg/mL, in males 51 pg/mL. The results should be used in conjunction with clinical conditions of myocardial infarction. (Access High Sensitivity Troponin I Instructions For Use, [employer], January 2018) Performed By: #### 1 [id number] #### [facility] [address] [place] [address] eGFRon 12-29-2023 eGFR 96 mL/min/1.73 m2 Normal >=59 [facility] Comment on above: Order Comment: Order added by Discern Expert. Performed By: #### 1 [id number] #### [facility] [address] [place] [address] Ambulatory Visit Summaryon 0 12-27-2023 Ambulatory Visit Summary Ambulatory Visit Summary CAROLINA GUTIERREZ :1960 Visit Date:12/27/2023 Ambulatory Visit Instructions Your Diagnosis Acute bronchitis with asthma BMI 40.0-44.9, adult Cough Your Care Team Attending Physician - Giovanny SAMANO, Albaro Iverson Primary Care Physician - Makayla HDZ, Silvestre Linares This Is Your Medications List benzonatate (Tessalon 100 mg Cap) doxycycline (doxycycline monohydrate 100 mg oral capsule) predniSONE (predniSONE 20 mg Tab) Contact prescribing physician if questions or concerns albuterol (ProAir RespiClick 90 mcg/inh inhalation powder) albuterol-ipratropiu m (DuoNeb 2.5 mg-0.5 mg/3 mL Soln-Inh) celecoxib (celecoxib 200 mg Cap) denosumab (Prolia) fluticasone nasal (Flonase 0.05 mg/inh nasal spray) levothyroxine (levothyroxine 137 mcg (0.137 mg) Tab) montelukast (montelukast 10 mg Tab) ondansetron (Zofran 4 mg Tab) pantoprazole (Pantoprazole [address] Tab) semaglutide (Ozempic (1 mg dose)) tiotropium (Spiriva Respimat 1.25 mcg/inh inhalation aerosol) upadacitinib (Rinvoq 15 mg oral tablet, extended release) Procedures Performed EGD (esophagogastroduode noscopy) gastric outlet reduction (05/21/2022), Colonoscopy (05/09/2021), EGD - Esophagogastroduoden oscopy (05/09/2021), Cataract extraction, Cholecystectomy, Foot repair, Hysterectomy, Knee replacement, Shoulder, Tonsillectomy and adenoidectomy; age 12 or over. Discharge Vitals Temperature (Oral) 36.7 ?C Heart Rate (Peripheral) 112 Blood Pressure 136/84 Height 143 cm Height 56 in Weight 89 kg Weight 195.8 lb BMI 43.52 What to do next You Need to Schedule the Following Appointments Follow Up with Makayla HDZ, Silvestre Linares, [facility], MED When: Medications What How Much When Why Instructions New benzonatate (Tessalon 100 mg Cap) 1 Capsules By Mouth 3 times a day Acute bronchitis with asthma BMI 40.0-44.9, adult Duration: 7 Days Pickup at [facility]/pharmacy #[id number] New doxycycline (doxycycline monohydrate 100 mg oral capsule) 1 Capsules By Mouth 2 times a day Acute bronchitis with asthma BMI 40.0-44.9, adult Duration: 7 Days Pickup at [facility]/pharmacy #[id number] New predniSONE (predniSONE 20 mg Tab) 2 Tablets By Mouth Every day Acute bronchitis with asthma BMI 40.0-44.9, adult Duration: 5 Days Pickup at [facility]/pharmacy #[id number] Unchanged albuterol (ProAir RespiClick 90 mcg/ inh inhalation powder) 2 Puffs Inhalation Every 4 hours as needed for for wheezing or SOB Contact prescribing physician if questions or concerns Unchanged albuterol-ipratropiu m (DuoNeb 2.5 mg-0.5 mg/ 3 mL Soln-Inh) 3 Milliliter Nebulized inhalation (aerosol) 6 times a day Contact prescribing physician if questions or concerns Unchanged celecoxib (celecoxib 200 mg Cap) 1 Capsules By Mouth 2 times a day Contact prescribing physician if questions or concerns Unchanged denosumab (Prolia) 60 Milligram Subcutaneous Every 6 months Contact prescribing physician if questions or concerns Unchanged fluticasone nasal (Flonase 0.05 mg/ inh nasal spray) 2 Sprays Nasal Inhalation Every day Contact prescribing physician if questions or concerns Unchanged levothyroxine (levothyroxine 137 mcg (0.137 mg) Tab) See instructions TAKE 1 TABLET BY MOUTH EVERY DAY Contact prescribing physician if questions or concerns Unchanged montelukast (montelukast 10 mg Tab) See instructions TAKE 1 TABLET BY MOUTH TWICE A DAY Contact prescribing physician if questions or concerns Unchanged ondansetron (Zofran 4 mg Tab) 1 Tablets By Mouth Every 6 hours Contact prescribing physician if questions or concerns Unchanged pantoprazole (Pantoprazole [address] Tab) 1 Tablets By Mouth Every day Duration: 90 Days Contact prescribing physician if questions or concerns Unchanged semaglutide (Ozempic (1 mg dose)) See instructions 2 mg SubCutaneous qWeek, ordered by another provider Contact prescribing physician if questions or concerns Unchanged tiotropium (Spiriva Respimat 1.25 mcg/ inh inhalation aerosol) Contact prescribing physician if questions or concerns Unchanged upadacitinib (Rinvoq 15 mg oral tablet, extended release) Contact prescribing physician if questions or concerns Pharmacy Information [facility]/pharmacy #[id number]: [address], [place] [id number] [phone] Medications and Immunizations Administered Given DuoNeb 2.5 mg-0.5 mg/3 mL Soln-Inh, 3 mL, NEB. For: BMI 40.0-44.9, adult Allergies Cefzil (Unknown) Eliquis (Unknown) Keflex (Hives) Pradaxa (Unknown) penicillin G benzathine (Hives) Problems Ongoing - Any problem that you are currently receiving treatment for. Allergic rhinitis Anemia Annual physical exam Anti-citrullinated protein antibody detected Bilateral otitis media BMI 40.0-44.9, adult Bronchitis Chronic peripheral venous hypertension with lower extremity complication Chronic sinusitis Colitis Cough Derangement of knee Diverticular disease Esophageal web Exposure to COVID-19 virus Fluid level behind tympanic membrane of marci (more content not included)... Normal [facility] Family Medicine Office/Clini c Noteon 12-27-2023 Family Medicine Office/Clinic Note Family Medicine Office/Clinic Note Chief Complaint cough, chest heaviness, wheezing, headache, SOB HPI Staff 63 year old female presents with congestion, deep cough, wheezing, SOB, chest tightness, chest heaviness, stuffy nose, headache, diarrhea symptoms began Saturday hx of asthma History of Present Illness I have reviewed and verified the staff HPI to be accurate for this encounter. Portions of this record have been created with voice recognition software. Occasional wrong-word or ?wfrbq-y-bdrw? substitutions may have occurred due to the inherent limitations of voice recognition software. 63 yo female with history of anemia, asthma, chronic sinusitis, colitis, hypothyroidism, history of PE, [facility] today with chief complaint of cough and congestion onset x 5 days ago last Saturday. Patient states runny stuffy nose deep cough wheezing shortness of breath chest tightness chest heaviness stuffy nose headache and diarrhea. Patient states that she started not feeling well last Saturday states symptoms at all started with a cough which she states is nonproductive harsh and deep. Patient states a history of asthma in which she has had also seasonal allergies and sneezing states she takes Malia for that in the morning time and at night. She does have a rescue inhaler that she has to use in addition to nebulizer treatments if needed. Patient denies any recent sick contacts or recent travel and she denies any known COVID-19 or influenza exposure that she is aware of. She is afebrile occasion she feels like she cannot take a deep breath. She states her history of PE was associated when she had COVID-19 in which she took a blood thinner for approximately 1 year and no longer takes that medication. She denies any further issues or concern for PE today she denies any lower extremity swelling edema or calf tenderness. She states that that was a shortness of breath that she will never forget. She denies any fever chills headache or bodyaches with her symptoms she denies any major nasal congestion. She does state wheezing that she has noticed with cough. She denies coughing up blood. She denies any belly pain nausea or vomiting. States she had 1 episode of diarrhea on Saturday which since has resolved. She is tolerating fluids and solids without difficulty. She denies any chest pain. Denies any history of coronary artery disease [place] or CHF. Patient has no other concerns at this time. Review of Systems PHQ Score Initial Depression Screen Score: 0 SCORE ROS negative unless otherwise stated in HPI. Physical Exam Vitals & Measurements T: 36.7 ?C(Oral) HR: 112(Peripheral) BP: 136/84 SpO2: 94% HT: 56 in HT: 143 cm WT: 89 kg WT: 195.8 lb BMI: 43.52 General: Pleasant morbidly obese female, no acute distress sitting upright in the exam chair Eyes: Bilateral conjunctiva within normal limits no injection Ears: Bilateral TMs are within normal limits no erythema or bulging. Bilateral external auditory canals are within normal limits no erythema or edema Nose: mild nasal mucosa inflammation and edema no active drainage deformity or lesion Mouth: Moist mucous membranes. Uvula is midline. No acute tonsillar erythema edema or exudate. No signs of peritonsillar abscess. No trismus or drooling. Neck: no adenopathy Lungs: Patient has expiratory wheezing throughout bilateral lung warner upper and lower lobes. No crackles or rhonchi noted on exam. Patient is not tachypneic. Symmetrical expansion. No signs of acute respiratory distress. Cardio: S1, S2, regular rhythm. No murmurs gallops or rubs. Abdomen: not assessed Musculoskeletal: not assessed Extremity: not assessed Neurologic: not assessed Skin: not assessed Mental Status: Alert and oriented x3. Normal mood and affect Assessment/Plan Patient was agreeable to a DuoNeb nebulizer treatment in office while waiting for rapid COVID-19 and influenza testing. Patient's rapid COVID-19 and influenza testing are both negative in office today. Patient had improvement of wheezing following DuoNeb nebulizer treatment in which I discussed with patient treatment for acute bronchitis with her history of asthma and wheezing. Plan to treat patient with prednisone 40 mg daily x 5 days duration in addition to doxycycline, antibiotic twice daily x 7 days duration given patient history of asthma as well as Tessalon Perles 1 tablet every 8 hours as needed for cough. Patient will continue to monitor symptoms follow closely with primary care provider or return if needed. Patient would seek ER for reevaluation if develops any worsening cough high fever weakness difficulty breathing chest pain or for any other worsening or concerning symptoms in which patient agrees and understands plan of care. 1. Acute bronchitis with asthma (J20.9: Acute bronchitis, unspecified) Please follow-up with your primary care provider in 3 to 5 days. Contact their office this afternoon or on Saturday morning to schedule a follow-up appointment. You were se (more content not included)... [facility] Comment on above: Result Comment: Elec tronically Signed By: Giovanny SAMANO, Albaro Iverson\.dusty\Date and Time Signed: 12/27/23 15:48 EDT Consultation Noteon 12-17-19 Consultation Note [id number] #1.00TIFF [facility] Consultation Note [id number]# 1.00TIFF [facility] Ambulatory Visit Summaryon 0 11-27-2023 Ambulatory Visit Summary CAROLINA GUTIERREZ :1960 Visit Date:11/27/2023 Ambulatory Visit Instructions Your Diagnosis BMI 40.0-44.9, adult Your Care Team Attending Physician - ARABELLA JEFFREY CNP Primary Care Physician - Silvestre Benavides MD This Is Your Medications List albuterol (ProAir RespiClick 90 mcg/inh inhalation powder) albuterol-ipratropiu m (DuoNeb 2.5 mg-0.5 mg/3 mL Soln-Inh) azithromycin (azithromycin 250 mg Tab) celecoxib (celecoxib 200 mg Cap) cyclobenzaprine (cyclobenzaprine 10 mg Tab) denosumab (Prolia) dextromethorphan-pro methazine (dextromethorphan-pr omethazine 15 mg-6.25 mg/5 mL Oral Syrup 5 mL) fluticasone nasal (Flonase 0.05 mg/inh nasal spray) fluticasone-salmeter ol (Advair Diskus 500 mcg-50 mcg inhalation powder) levothyroxine (levothyroxine 137 mcg (0.137 mg) Tab) montelukast (montelukast 10 mg Tab) ondansetron (Zofran 4 mg Tab) pantoprazole (Pantoprazole [address] Tab) semaglutide (Ozempic (1 mg dose)) tiotropium (Spiriva Respimat 1.25 mcg/inh inhalation aerosol) upadacitinib (Rinvoq 15 mg oral tablet, extended release) Procedures Performed EGD (esophagogastroduode noscopy) gastric outlet reduction (05/21/2022), Colonoscopy (05/09/2021), EGD - Esophagogastroduoden oscopy (05/09/2021), Cataract extraction, Cholecystectomy, Foot repair, Hysterectomy, Knee replacement, Shoulder, Tonsillectomy and adenoidectomy; age 12 or over. Discharge Vitals Temperature (Temporal Artery) 37.0 ?C Heart Rate (Peripheral) 94 Blood Pressure 148/80 Height 56 in Height 143 cm Weight 195.14 lb Weight 88.7 kg BMI 43.38 Medications What How Much When Why Instructions Unchanged albuterol (ProAir RespiClick 90 mcg/ inh inhalation powder) 2 Puffs Inhalation Every 4 hours as needed for for wheezing or SOB Unchanged albuterol-ipratropiu m (DuoNeb 2.5 mg-0.5 mg/ 3 mL Soln-Inh) 3 Milliliter Nebulized inhalation (aerosol) 6 times a day Unchanged azithromycin (azithromycin 250 mg Tab) 1 Packets By Mouth As Directed Duration: 5 Days as directed on package labeling Unchanged celecoxib (celecoxib 200 mg Cap) 1 Capsules By Mouth 2 times a day Unchanged cyclobenzaprine (cyclobenzaprine 10 mg Tab) 1 Tablets By Mouth 3 times a day as needed for for spasm prn back pain Unchanged denosumab (Prolia) 60 Milligram Subcutaneous Every 6 months Unchanged dextromethorphan-pro methazine (dextromethorphan-pr omethazine 15 mg-6.25 mg/ 5 mL Oral Syrup 5 mL) 5 Milliliter By Mouth Every 6 hours as needed for for cough BMI 40.0-44.9, adult Viral URI with cough Unchanged fluticasone nasal (Flonase 0.05 mg/ inh nasal spray) 2 Sprays Nasal Inhalation Every day Unchanged fluticasone-salmeter ol (Advair Diskus 500 mcg-50 mcg inhalation powder) 1 Puffs Inhalation 2 times a day Duration: 30 Days Unchanged levothyroxine (levothyroxine 137 mcg (0.137 mg) Tab) See instructions TAKE 1 TABLET BY MOUTH EVERY DAY Unchanged montelukast (montelukast 10 mg Tab) See instructions TAKE 1 TABLET BY MOUTH TWICE A DAY Unchanged ondansetron (Zofran 4 mg Tab) 1 Tablets By Mouth Every 6 hours Unchanged pantoprazole (Pantoprazole [address] Tab) 1 Tablets By Mouth Every day Duration: 90 Days Unchanged semaglutide (Ozempic (1 mg dose)) See instructions 2 mg SubCutaneous qWeek, ordered by another provider Unchanged tiotropium (Spiriva Respimat 1.25 mcg/ inh inhalation aerosol) Unchanged upadacitinib (Rinvoq 15 mg oral tablet, extended release) Allergies Cefzil (Unknown) Eliquis (Unknown) Keflex (Hives) Pradaxa (Unknown) penicillin G benzathine (Hives) Problems Ongoing - Any problem that you are currently receiving treatment for. Allergic rhinitis Anemia Annual physical exam Anti-citrullinated protein antibody detected Bilateral otitis media BMI 40.0-44.9, adult Bronchitis Chronic peripheral venous hypertension with lower extremity complication Chronic sinusitis Colitis Cough Derangement of knee Diverticular disease Esophageal web Exposure to COVID-19 virus Fluid level behind tympanic membrane of both ears Gastroesophageal reflux disease without esophagitis Hemorrhoids Hx of pulmonary embolus Hypothyroidism Hypoxemia Low hemoglobin Lung nodules Moderate asthma without complication Morbid obesity with [...] completing your survey. We appreciate your feedback a (more content not included)... [facility] Family Medicine Office/Clini c Noteon 11-27-2023 Family Medicine Office/Clinic Note HPI Staff Patient of [facility] NP presents for acute visit. complaints of cough and congestion. _Respiratory C/O: Duration: 1 day ago Body aches: no Chest congestion: yes Chills: yes Cough: yes Ear complaints: yes right ear hurts Eye itching/watering: no Fever: no Headache: yes Nasal congestion: no Nasal discharge: no Poor appetite: yes Reduced activity: yes Sinus pain/pressure: no Sneezing: no Sputum production: yes yellow Wheezing: yes Ill contacts: yes grandson Remedies tried: inhaler, cough medication I have reviewed and verified the staff HPI to be accurate for this encounter. History of Present Illness 63 year old patient of [facility] presents today for an acute visit. Patient reports she started with a cough and some congestion yesterday. Today she report her right ear is hurting and she has a headache. SHe states she has been coughing up some yellow mucus and she has a diagnosis of asthma. She states her grandson was seen by Yudelka yesterday and received and ATB. She reports she was not aware that [facility] sent in the Z-pack for her today. Review of Systems PHQ Score Initial Depression Screen Score: 0 SCORE Constitutional: no fever, mild chills, no sweats, no weakness Skin: no Jaundice, no rash, no lesions, nopetechiae ENMT: mild ear pain, no sore throat, no congestion, no hoarseness Respiratory: no shortness of breath, mild cough, no orthopnea, no wheezing Cardiovascular: no chest pain, no palpitations, no edema Additional ROS info: Except as noted in the above Review of Systems and in the History of Present Illness all other systems have been reviewed and are negative or noncontributory. Physical Exam Vitals & Measurements T: 37.0 ?C(Temporal Artery) HR: 94(Peripheral) BP: 148/80 HT: 56 in HT: 143 cm WT: 88.7 kg WT: 195.14 lb BMI: 43.38 General: alert, no acute distress Skin: warm, dry Head: no trauma, normocephalic Neck: Trachea midline, no adenopathy, no tenderness Eye: normal conjunctiva, sclera clear ENMT: TM's clear, oral mucosa moist, no pharyngeal erythema or exudate Cardiovascular: regular rate and rhythm, normal peripheral perfusion Respiratory: Lungs CTA, respirations non labored Neurological: oriented x 4, LOC appropriate for age speech normal Assessment/Plan 1. Chronic sinusitis (J32.9: Chronic sinusitis, unspecified) Continue with Z-pack prescribed by [facility] today 2. BMI 40.0-44.9, adult (Z68.41: Body mass index [BMI] 40.0-44.9, adult) The standard range for ages 18 and older is >=18.5 and < 25 kg/m2. Your BMI today was above this range, this falls in the overweight to obese category and there are medical benefits to weight loss. We can offer counselling, referral, and/or medical support in addressing this problem. Your BMI and weight management will be followed at subsequent visits. Patient encouraged to f/u with pcp for LE edema. Follow-up No qualifying data available Patient Education Sinus Infection, Adult, Salb-pj-[id number] Problem List/Past Medical History Ongoing Allergic rhinitis Anemia Annual physical exam Anti-citrullinated protein antibody detected Bilateral otitis media BMI 40.0-44.9, adult Bronchitis Chronic peripheral venous hypertension with lower extremity complication Chronic sinusitis Colitis Cough Derangement of knee Diverticular disease Esophageal web Exposure to COVID-19 virus Fluid level behind tympanic membrane of both ears Gastroesophageal reflux disease without esophagitis Hemorrhoids Hx of pulmonary embolus Hypothyroidism Hypoxemia Low hemoglobin Lung nodules Moderate asthma without complication Morbid obesity with [...] Dysphagia Loose stools Nausea Procedure/Surgical History EGD (esophagogastroduode noscopy) gastric outlet reduction (05/21/2022), Colonoscopy (05/09/2021), EGD - Esophagogastroduoden oscopy (05/09/2021), Cataract extraction, Cholecystectomy, Foot repair, Hysterectomy, Knee replacement, Shoulder, Tonsillectomy and adenoidectomy; age 12 or over. Medications Advair Diskus 500 mcg-50 mcg inhalation powder, 1 puff(s), Inhalation, BID azithromycin 250 mg Tab, 1 packet(s), Oral, As Directed celecoxib 200 mg Cap, 200 mg= 1 cap(s), Oral, BID cyclobenzaprine 10 mg Tab, 10 mg= 1 tab(s), Oral, TID, PRN dextromethorphan-pro methazine 15 mg-6.25 mg/5 mL Oral Syrup 5 mL, 5 mL, Oral, q6hr, PRN DuoNeb 2.5 mg-0.5 mg/3 mL Soln-Inh, 3 mL, NEB, 6x/Day, 1 refills Flonase 0.05 mg/inh nasal spray, 2 spray(s), Nasal, Daily levothyroxine 137 mcg (0.137 mg) Tab, See Instructions, 4 r (more content not included)... [facility] Comment on above: Result Comment: Elec tronically Signed By: ARABELLA JEFFREY CNP.dusty\Date and Time Signed: 11/27/23 15:02 EDT Patient Educationon 11-27-19 Patient Education Infectious Disease Sinus Infection, Adult A sinus infection is soreness and swelling (inflammation) of your [...] by a virus. What are the causes? ? Allergies. ? Asthma. ? Germs. ? Things that block your nose or sinuses. ? Growths in the nose (nasal polyps). ? Chemicals or irritants in the air. ? A fungus. This is rare. What increases the risk? ? Having a weak body defense system (immune system). ? Doing a lot of swimming or diving. ? Using nasal sprays too much. ? Smoking. What are the signs or symptoms? The main symptoms of this condition are pain and a feeling of pressure around the sinuses. Other symptoms include: ? Stuffy nose (congestion). This may make it hard to breathe through your nose. ? Runny nose (drainage). ? Soreness, swelling, and warmth in the sinuses. ? A cough that may get worse at night. ? Being unable to smell and taste. ? Mucus that collects in the throat or the back of the nose (postnasal drip). This may cause a sore throat or bad breath. ? Being very tired (fatigued). ? A fever. How is this diagnosed? ? Your symptoms. ? Your medical history. ? A physical exam. ? Tests to find out if your condition is short-term (acute) or long-term (chronic). Your doctor may: ? Check your nose for growths (polyps). ? Check your sinuses using a tool that has a light on one end (endoscope). ? Check for allergies or germs. [...] shrink swollen tissue in the nose. ? A spray that treats swelling of the nostrils. ? Rinses that help get rid of thick mucus in your nose (nasal saline washes). ? Medicines that treat allergies (antihistamines). ? Rrfz-uiu-klzezvy pain relievers. ? If caused by bacteria, your doctor may wait to see if you will get better without treatment. You may be given antibiotic medicine if you have: ? A very bad infection. ? A weak body defense system. ? If caused by growths in the nose, surgery may be needed. Follow these instructions at home: Medicines ? Take, use, or apply luub-rlw-bwcgcrd and prescription medicines only as told by [...] as often as told by your doctor. ? Use nasal saline washes as often as told by your doctor. ? Wash your hands often with soap and water. If you cannot use soap and water, use hand impregnation operator. ? Do not smoke. Avoid being around people who are smoking (secondhand smoke). ? Keep all follow-up visits. Contact a doctor if: ? You have a fever. ? Your symptoms get worse. ? Your symptoms do not get better within 10 days. Get help right away if: ? You have a very bad headache. ? You cannot stop vomiting. ? You have very bad pain or swelling around your face or eyes. ? You have trouble seeing. ? You feel confused. ? Your neck is stiff. ? You have trouble breathing. These symptoms may be an emergency. Get help right away. Call 911. ? Do not wait to see if the symptoms will go away. ? Do not drive yourself to the hospital. Summary ? A sinus infection is swelling of your sinuses. Sinuses are [...] feel better. ? Keep all follow-up visits (more content not included)... [facility] - MISC [id number] #1.00TIFF [facility] Consultation Noteon 11-14-19 Consultation Note [id number]# 1.00TIFF [facility] Consultation Note [id number] #1.00TIFF [facility] Consultation Note [id number] #1.00TIFF [facility] Ambulatory Visit Summaryon 0 2023 Ambulatory Visit Summary CAROLINA GUTIERREZ :1960 Visit Date:2023 Ambulatory Visit Instructions Your Diagnosis BMI 40.0-44.9, adult Non-smoker Your Care Team Attending Physician - Berry Canales Primary Care Physician - Makayla HDZ, Silvestre Linares This Is Your Medications List albuterol (ProAir RespiClick 90 mcg/inh inhalation powder) albuterol-ipratropiu m (DuoNeb 2.5 mg-0.5 mg/3 mL Soln-Inh) celecoxib (celecoxib 200 mg Cap) cyclobenzaprine (cyclobenzaprine 10 mg Tab) denosumab (Prolia) dextromethorphan-pro methazine (dextromethorphan-pr omethazine 15 mg-6.25 mg/5 mL Oral Syrup 5 mL) fluticasone nasal (Flonase 0.05 mg/inh nasal spray) fluticasone-salmeter ol (Advair Diskus 250 mcg-50 mcg inhalation powder) levothyroxine (levothyroxine 137 mcg (0.137 mg) Tab) montelukast (montelukast 10 mg Tab) ondansetron (Zofran 4 mg Tab) pantoprazole (Pantoprazole [address] Tab) semaglutide (Ozempic (1 mg dose)) tiotropium (Spiriva Respimat 1.25 mcg/inh inhalation aerosol) upadacitinib (Rinvoq 15 mg oral tablet, extended release) Procedures Performed EGD (esophagogastroduode noscopy) gastric outlet reduction (05/21/2022), Colonoscopy (05/09/2021), EGD - Esophagogastroduoden oscopy (05/09/2021), Cataract extraction, Cholecystectomy, Foot repair, Hysterectomy, Knee replacement, Shoulder, Tonsillectomy and adenoidectomy; age 12 or over. Discharge Vitals Heart Rate (Peripheral) 90 Respiratory Rate 18 Blood Pressure 132/84 Height 143.0 cm Height 56 in Weight 88.8 kg Weight 195.36 lb BMI 43.43 Medications What How Much When Why Instructions Unchanged albuterol (ProAir RespiClick 90 mcg/ inh inhalation powder) 2 Puffs Inhalation Every 4 hours as needed for for wheezing or SOB Unchanged albuterol-ipratropiu m (DuoNeb 2.5 mg-0.5 mg/ 3 mL Soln-Inh) 3 Milliliter Nebulized inhalation (aerosol) 6 times a day Unchanged celecoxib (celecoxib 200 mg Cap) 1 Capsules By Mouth 2 times a day Unchanged cyclobenzaprine (cyclobenzaprine 10 mg Tab) 1 Tablets By Mouth 3 times a day as needed for for spasm prn back pain Unchanged denosumab (Prolia) 60 Milligram Subcutaneous Every 6 months Unchanged dextromethorphan-pro methazine (dextromethorphan-pr omethazine 15 mg-6.25 mg/ 5 mL Oral Syrup 5 mL) 5 Milliliter By Mouth Every 6 hours as needed for for cough BMI 40.0-44.9, adult Viral URI with cough Unchanged fluticasone nasal (Flonase 0.05 mg/ inh nasal spray) 2 Sprays Nasal Inhalation Every day Unchanged fluticasone-salmeter ol (Advair Diskus 250 mcg-50 mcg inhalation powder) See instructions one puff inhales in the morning and night Unchanged levothyroxine (levothyroxine 137 mcg (0.137 mg) Tab) See instructions TAKE 1 TABLET BY MOUTH EVERY DAY Unchanged montelukast (montelukast 10 mg Tab) See instructions TAKE 1 TABLET BY MOUTH TWICE A DAY Unchanged ondansetron (Zofran 4 mg Tab) 1 Tablets By Mouth Every 6 hours Unchanged pantoprazole (Pantoprazole [address] Tab) 1 Tablets By Mouth Every day Duration: 90 Days Unchanged semaglutide (Ozempic (1 mg dose)) See instructions 2 mg SubCutaneous qWeek, ordered by another provider Unchanged tiotropium (Spiriva Respimat 1.25 mcg/ inh inhalation aerosol) Unchanged upadacitinib (Rinvoq 15 mg oral tablet, extended release) Allergies Cefzil (Unknown) Eliquis (Unknown) Keflex (Hives) [...] choosing us for your care. [facility] Medicine Office/Clini c Noteon 2023 Family Medicine Office/Clinic Note HPI Staff Carolina is a 62 year old female presenting to discuss CT scan Pt had CT scan at [facility] 10/26/23 show small nodules left lung up to 4mm History of Present Illness pt presents to go over CT results Review of Systems PHQ Score Initial Depression Screen Score: 0 SCORE Physical Exam Vitals & Measurements HR: 90(Peripheral) RR: 18 BP: 132/84 SpO2: 98% HT: 56 in HT: 143.0 cm WT: 88.8 kg WT: 195.36 lb BMI: 43.43 General: alert, no acute distress ENMT: oral mucosa moist, no pharyngeal erythema or exudate Cardiovascular: regular rate and rhythm, normal peripheral perfusion Respiratory: Lungs CTA, respirations non labored Extremities: no deformity, no trauma Neurological: oriented x 4, LOC appropriate for age, CN II-XII intact, motor strength equal & normal bilaterally, speech normal Assessment/Plan 1. Lung nodules (R91.8: Other nonspecific abnormal finding of lung field) pt presents today go over CT results. has small 4mm lung nodules. she just came from Dr. Del Rio's office and he is not concerned about them at all. she has PFT scheduled next week. reassurance provided. all questions answered. RTC as needed 2. BMI 40.0-44.9, adult (Z68.41: Body mass index [BMI] 40.0-44.9, adult) BMI education complete Ordered: doxycycline, 100 mg = 1 cap(s), Oral, BID, # 30 cap(s), Refills(s) 1, Pharmacy: [id number], 143.2, cm, 09/18/23 17:04:00 EDT, Height/Length Dosing, 88.2, kg, 09/18/23 17:04:00 EDT, Weight Dosing 3. Non-smoker (Z78.9: Other specified health status) continue not smoking Ordered: doxycycline, 100 mg = 1 cap(s), Oral, BID, # 30 cap(s), Refills(s) 1, [id number] 143.2, cm, 09/18/23 17:04:00 EDT, Height/Length Dosing, 88.2, kg, 09/18/23 17:04:00 EDT, Weight Dosing Orders: methylPREDNISolone, = 1 packet(s), Oral, Once, as directed on package labeling, # 21 tab(s), Refills(s) 0, [id number] 143.2, cm, 09/18/23 17:04:00 EDT, Height/Length Dosing, 88.2, kg, 09/18/23 17:04:00 EDT, Weight Dosing predniSONE, See Instructions, TAKE 3 TABS DAILY X2 DAYS, THEN 2 TABS DAILY X3 DAYS, 1 TAB DAILY X3 DAYS, 1/2 TAB X 2 DAYS, # 16 tab(s), Refills(s) 1, [id number], 143.2, cm, 09/18/23 17:04:00 EDT, Height/Length Dosing, 88.2, kg, 09/18/23 17:04:00... Follow-up No qualifying data available Problem List/Past [...] of pulmonary embolus Hypothyroidism Hypoxemia Low hemoglobin Lung nodules Moderate asthma without complication Morbid obesity with [...] Dysphagia Loose stools Nausea Procedure/Surgical History EGD (esophagogastroduode noscopy) gastric outlet reduction (05/21/2022), Colonoscopy (05/09/2021), EGD - Esophagogastroduoden oscopy (05/09/2021), Cataract extraction, Cholecystectomy, Foot repair, Hysterectomy, Knee replacement, Shoulder, Tonsillectomy and adenoidectomy; age 12 or over. Medications Advair Diskus 250 mcg-50 mcg inhalation powder, See Instructions, 1 refills celecoxib 200 mg Cap, 200 mg= 1 cap(s), Oral, BID cyclobenzaprine 10 mg Tab, 10 mg= 1 tab(s), Oral, TID, PRN dextromethorphan-pro methazine 15 mg-6.25 mg/5 mL Oral Syrup 5 mL, 5 mL, Oral, q6hr, PRN DuoNeb 2.5 mg-0.5 mg/3 mL Soln-Inh, [...] Rinvoq 15 mg oral tablet, extended release Spiriva Respimat 1.25 mcg/inh inhalation aerosol Zofran 4 mg Tab, 4 mg= 1 tab(s), Oral, q6hr, 1 refills Allergies Cefzil (Unknown) Eliquis (Unknown) Keflex (Hives) Pradaxa (Unknown) penicillin G benzathine (Hives) Social History Alcohol - Denies Alcohol Use, 10/26/2019 Current, Beer, Wine, 1-2 times per year, 05/22/2022 Employment/School - Low Risk, 05/22/2022 Exercise - Does not exercise, 05/22/2022 Home/Environment - (more content not included)... Normal [facility] Comment on above: Result Comment: Elec tronically Signed By: Kirit MAGANA, Berry Olivas\.br\Date and Time Signed: 11/05/23 17:42 EDT Consultation Noteon 11-04-19 Consultation Note [id number] #1.00TIFF Normal [facility] RAD - CT Reporton 11-04-2023 RAD - CT Report [id number] #1.00TIFF Normal [facility] Auth for Release of Medical Recordson 10-31-2023 Auth for Release of Medical Records [id number] #1.00TIFF Normal [facility] CT SHOULDER WO IVCON LTon CT SHOULDER WO IVCON LT * * *Final Report* * * DATE OF EXAM: Oct 26 2023 8:51AM [facility] 0089 - CT SHOULDER WO IVCON LT / PROCEDURE REASON: Status post reverse total replacement of left shoulder * * * * Physician Interpretation * * * * EXAMINATION: CT SHOULDER WO IVCON LT CLINICAL HISTORY: Status post reverse total replacement of left shoulder TECHNIQUE: Axial CT of the left shoulder was obtained. Coronal and sagittal reformats were reviewed. Bone and soft tissue reconstruction algorithms were utilized. Metal artifact reconstruction algorithms were utilized. CT Radiation dose: Integrated Dose-length product (DLP) for this visit = 649 mGy*cm. CT Dose Reduction Employed: Automated exposure control(AEC) and iterative recon COMPARISON: Left shoulder radiograph 10/14/2023 RESULT: Reverse left total shoulder arthroplasty with anteriorly and superiorly displaced glenoid component similar to prior radiograph. Glenoid stem component abuts the anterior aspect of the clavicle anteriorly with the screws free floating in the shoulder soft tissues superior to the coracoid. The glenosphere abuts the coracoid along the lateral aspect. There is small amount of fluid surrounding the glenoid component. The humeral component appears to be intact, and is articulating with the displaced glenoid component. The posterior aspect of the proximal humerus abuts the [place] glenoid. There is separation of the acromioclavicular joint with clavicle projecting posteriorly and inferiorly relative to the acromion with abutment of the glenoid component of shoulder arthroplasty. Bony irregularity at the acromion, likely sequelae of remote injury/remodeling. No acute fracture or dislocation otherwise. There is fatty changes and atrophy of the rotator cuff musculature. Other: Scattered solid nodular opacities measuring up to 4 mm (303:265), Right lung curvilinear opacities likely representing atelectasis. Full Service Supervisor (topogram) images: No significant additional findings. IMPRESSION: 1. Reverse total shoulder arthroplasty with displaced glenoid component, similar to prior radiograph. 2. Small nodules throughout left lung measuring up to 4 mm. Incidental Finding: Follow-up Acuity: Incidental Finding: Solid: <6 mm (solitary or multiple) Routing Code: N/A Recommendation: No imaging follow-up is recommended Time Frame: N/A Comments: If there are risk factors for lung malignancy, a follow-up chest CT exam could be obtained in 12 months --END OF FINDING-- COMMUNICATION:? Results will be communicated with the ordering provider via [employer] staff message by [employer] Support [employer] within 2 business days of report finalization. Project Product Manager: DEBBIE Transcribe Date/Time: Oct 28 2023 9:25A Dictated by : SCOTT AVILES MD This examination was interpreted and the report reviewed and electronically signed by: BLANCA ALBERTS MD on Oct 28 2023 4:08PM EST [id number] CN ACTIONABLE Invalid Interpretation Code [facility] RAD - MISCon 10-22-2023 RAD - MISC [id number] #1.00TIFF Normal [facility] Consenton 10-21-2023 Consent [id number] #1.00TIFF Normal [facility] ECG 12-Leadon 10-21-2023 ECG 12-Lead [id number] #1.00TIFF Normal [facility] ED Note-Physicianon 10-21-19 ED Note-Physician [id number] #1.00TIFF Normal [facility] Family Medicine Office/Clini c Noteon 10-21-2023 Family Medicine Office/Clinic Note Chief Complaint cough and sob HPI Staff complaints of congestion Onset: 1 month Characteristics: cough, fatigue,sob OTC tried: doxycycline History of Present Illness pt presents with continue cough and shortness of breath Review of Systems PHQ Score Initial Depression Screen Score: 0 SCORE Physical Exam Vitals & Measurements HR: 102(Peripheral) BP: 130/80 SpO2: 94% HT: 56 in HT: 143 cm WT: 90 kg WT: 198 lb BMI: 44.01 General: alert, no acute distress ENMT: oral mucosa moist, no pharyngeal erythema or exudate Cardiovascular: regular rate and rhythm, normal peripheral perfusion Respiratory: Lungs CTA, respirations non labored Extremities: no deformity, no trauma Neurological: oriented x 4, LOC appropriate for age, CN II-XII intact, motor strength equal & normal bilaterally, speech normal Assessment/Plan 1. Cough (R05.9: Cough, unspecified) continued cough. just finished doxycycline. cough is worse at night. promethaizne liquid has helped the cough at night. has appointments with pulm and foil spinner in October. no wheezing noted on exam today. will give 60mg of kenalog in office today. pt instructed to go to ER if SOB worsens or she gets chest pain. RTC as needed 2. Shortness of breath (R06.02: Shortness of breath) will order d-dimer to rule out PE 3. BMI 40.0-44.9, adult (Z68.41: Body mass index [BMI] 40.0-44.9, adult) bmi education complete Follow-up No qualifying data available Problem List/Past [...] Dysphagia Loose stools Nausea Procedure/Surgical History EGD (esophagogastroduode noscopy) gastric outlet reduction (05/21/2022), Colonoscopy (05/09/2021), EGD - Esophagogastroduoden oscopy (05/09/2021), Cataract extraction, Cholecystectomy, Foot repair, Hysterectomy, Knee replacement, Shoulder, Tonsillectomy and adenoidectomy; age 12 or over. Medications Advair Diskus 250 mcg-50 mcg inhalation powder, See Instructions, 1 refills celecoxib 200 mg Cap, 200 mg= 1 cap(s), Oral, BID cyclobenzaprine 10 mg Tab, 10 mg= 1 tab(s), Oral, TID, PRN dextromethorphan-pro methazine 15 mg-6.25 mg/5 mL Oral Syrup 5 mL, 5 mL, Oral, q6hr, PRN doxycycline hyclate 100 mg Cap, 100 mg= 1 cap(s), Oral, BID, 1 refills DuoNeb 2.5 mg-0.5 mg/3 mL Soln-Inh, 3 mL, NEB, 6x/Day, 1 refills Flonase 0.05 mg/inh nasal spray, 2 spray(s), Nasal, Daily levothyroxine 137 mcg (0.137 mg) Tab, See Instructions methylPREDNISolone 4 mg tab dosepak, 1 packet(s), Oral, Once montelukast 10 mg Tab, See Instructions Ozempic (1 mg dose), See Instructions Pantoprazole [address] Tab, 40 mg= 1 tab(s), Oral, Daily, 3 refills predniSONE 20 mg Tab, See Instructions, 1 refills predniSONE 20 mg Tab, See Instructions ProAir RespiClick 90 mcg/inh inhalation powder, 2 puff(s), Inhalation, q4hr, PRN, 11 refills Prolia, 60 mg, SubCutaneous, q6mo Rinvoq 15 mg oral tablet, extended release Spiriva Respimat 1.25 mcg/inh inhalation aerosol Zofran 4 mg Tab, 4 mg= 1 [...] in lifetime) Tobacco Use:. Never Smokeless Tobacco Use:. Household tobacco concerns: No., 10/05/2023 Family History Cancer: Mother. Diabetes mellitus type 2: Sister. Stroke: Father. Immunizations Vaccine Date Status Comments pneumococcal 20-valent conjugate vaccine 06/07/2023 Recorded influenza virus vaccine, inactivated 05/14/2023 Recorded influenza virus vaccine, inactivated - Not Given Patient Refuses influenza virus vaccine, inactivated (more content not included)... [facility] Comment on above: Result Comment: Elec tronically Signed By: Berry Canales\.br\Date and Time Signed: 10/21/23 12:49 EDT Lab Reportson 10-21-2023 Lab Reports [id number] #1.00TIFF [facility] Physician Orderon 10-21-2023 Physician Order [id number] #1.00TIFF [facility] RAD - CT Reporton 10-21-2023 RAD - CT Report [id number] #1.00TIFF [facility] Ambulatory Visit Summaryon 0 10-18-2023 Ambulatory Visit Summary CAROLINA GUTIERREZ :1960 Visit Date:10/18/2023 Ambulatory Visit Instructions Your Diagnosis Cough Shortness of breath BMI 40.0-44.9, adult Your Care Team Attending Physician - Berry Canales Primary Care Physician - Silvestre Benavides MD This Is Your Medications List albuterol (ProAir RespiClick 90 mcg/inh inhalation powder) albuterol-ipratropiu m (DuoNeb 2.5 mg-0.5 mg/3 mL Soln-Inh) celecoxib (celecoxib 200 mg Cap) cyclobenzaprine (cyclobenzaprine 10 mg Tab) denosumab (Prolia) dextromethorphan-pro methazine (dextromethorphan-pr omethazine 15 mg-6.25 mg/5 mL Oral Syrup 5 mL) doxycycline (doxycycline hyclate 100 mg Cap) fluticasone nasal (Flonase 0.05 mg/inh nasal spray) fluticasone-salmeter ol (Advair Diskus 250 mcg-50 mcg inhalation powder) levothyroxine (levothyroxine 137 mcg (0.137 mg) Tab) methylPREDNISolone (methylPREDNISolone 4 mg tab dosepak) montelukast (montelukast 10 mg Tab) ondansetron (Zofran 4 mg Tab) pantoprazole (Pantoprazole [address] Tab) predniSONE (predniSONE 20 mg Tab) predniSONE (predniSONE 20 mg Tab) semaglutide (Ozempic (1 mg dose)) tiotropium (Spiriva Respimat 1.25 mcg/inh inhalation aerosol) upadacitinib (Rinvoq 15 mg oral tablet, extended release) Procedures Performed EGD (esophagogastroduode noscopy) gastric outlet reduction (05/21/2022), Colonoscopy (05/09/2021), EGD - Esophagogastroduoden oscopy (05/09/2021), Cataract extraction, Cholecystectomy, Foot repair, Hysterectomy, Knee replacement, Shoulder, Tonsillectomy and adenoidectomy; age 12 or over. Discharge Vitals Heart Rate (Peripheral) 102 Blood Pressure 130/80 Height 143 cm Height 56 in Weight 90 kg Weight 198 lb BMI 44.01 Medications What How Much When Why Instructions New albuterol-ipratropiu m (DuoNeb 2.5 mg-0.5 mg/ 3 mL Soln-Inh) 3 Milliliter Nebulized inhalation (aerosol) 6 times a day Refills: 1 Pickup at [facility]/pharmacy #[id number] Unchanged albuterol (ProAir RespiClick 90 mcg/ inh inhalation powder) 2 Puffs Inhalation Every 4 hours as needed for for wheezing or SOB Unchanged celecoxib (celecoxib 200 mg Cap) 1 Capsules By Mouth 2 times a day Unchanged cyclobenzaprine (cyclobenzaprine 10 mg Tab) 1 Tablets By Mouth 3 times a day as needed for for spasm prn back pain Unchanged denosumab (Prolia) 60 Milligram Subcutaneous Every 6 months Unchanged dextromethorphan-pro methazine (dextromethorphan-pr omethazine 15 mg-6.25 mg/ 5 mL Oral Syrup 5 mL) 5 Milliliter By Mouth Every 6 hours as needed for for cough BMI 40.0-44.9, adult Viral URI with cough Unchanged doxycycline (doxycycline hyclate 100 mg Cap) 1 Capsules By Mouth 2 times a day Cough Shortness of breath BMI 40.0-44.9, adult Non-smoker Unchanged fluticasone nasal (Flonase 0.05 mg/ inh nasal spray) 2 Sprays Nasal Inhalation Every day Unchanged fluticasone-salmeter ol (Advair Diskus 250 mcg-50 mcg inhalation powder) See instructions one puff inhales in the morning and night Unchanged levothyroxine (levothyroxine 137 mcg (0.137 mg) Tab) See instructions TAKE 1 TABLET BY MOUTH EVERY DAY Unchanged methylPREDNISolone (methylPREDNISolone 4 mg tab dosepak) 1 Packets By Mouth Once as directed on package labeling Unchanged montelukast (montelukast 10 mg Tab) See instructions TAKE 1 TABLET BY MOUTH TWICE A DAY Unchanged ondansetron (Zofran 4 mg Tab) 1 Tablets By Mouth Every 6 hours Unchanged pantoprazole (Pantoprazole [address] Tab) 1 Tablets By Mouth Every day Duration: 90 Days Unchanged predniSONE (predniSONE 20 mg Tab) See instructions TAKE 3 TABS DAILY X2 DAYS, THEN 2 TABS DAILY X3 DAYS, 1 TAB DAILY X3 DAYS, 1/ 2 TAB X 2 DAYS Unchanged predniSONE (predniSONE 20 mg Tab) See instructions Take 3 tabs or 60 mg daily x 2 days, then 2 tabs or 40 mg daily x 3 days, then 1 tab or 20 mg PO daily x 3 days, then 1/ 2 tab PO or 10 mg daily x 2 days Unchanged semaglutide (Ozempic (1 mg dose)) See instructions 2 mg SubCutaneous qWeek, ordered by another provider Unchanged tiotropium (Spiriva Respimat 1.25 mcg/ inh inhalation aerosol) Unchanged upadacitinib (Rinvoq 15 mg oral tablet, extended release) Pharmacy Information [facility]/pharmacy #[id number]: [address], [place] [id number] [phone] Medications and Immunizations Administered Given Kenalog-40, 60 mg, IntraMuscular. For: Allergies Cefzil (Unknown) Eliquis (Unknown) Keflex (Hives) [...] reflux disease without esophagitis Hemorrhoids Hx of pulmonar (more content not included)... Normal [facility] C-REACTIVE PROTEINon 024 CRP [Mass/Vol] 3.4 mg/dL High <0.9 mg/dL [facility] D-DIMERon 10-14-2023 Fibrin D-dimer FEU (PPP) [Mass/Vol] 4180 ng/mL FEU High <500 ng/mL FEU [facility] ESR Westergren method (Bld) [Velocity]on 10-14-2023 ESR (Bld) [Velocity] 45 mm/h High 0 - 20 mm/hr Cl [facility] Fibrin D-dimer FEU (PPP) [Ma ss/Vol]on 10-14-2023 D Dimer Age-related Cutoff 630 ng/mL FEU [facility] SYNOVIAL FLUID MANUAL DIFFon 10-14-2023 Diff Total Synovial Fluid 100 cells counted [facility] Lymph%, SF 18 [facility] Yates%, SF 4 [facility] Neut%, SF 77 High 0 - <25 [facility] Synovial Cell% 1 [facility] SYNOVIAL FLUID, CRYSTAL ID/P ATHOLOGIST INTERPRETATIONon 10-14-2023 Crystal Prelim, SF PRELIMINARY REPORT No diagnostic crystals seen. SEE FINAL SF PATH REVIEW [facility] Crystal Review Reviewed by Josefa Yadav MD, PhD [facility] Crystals LM Nom (Syn fld) None seen None seen [facility] Specimen source Nom (Unsp spec) Shoulder, Left [facility] SYNOVIAL FLUID, ROUTINEon Clarity (Unsp spec) Cloudy Abnormal Clear [facility] Clarity (Unsp spec) Clear Clear [facility] Color (Syn fld) Bloody Abnormal Yellow [facility] Color (Syn fld) Consuelo Abnormal Yellow [facility] RBC Manual cnt (Syn fld) [#/Vol] [id number] /uL High <2,000 /uL [facility] Specimen source Nom (Unsp spec) Shoulder, Left [facility] WBC Manual cnt (Syn fld) [#/Vol] 1177 /uL High 0 - 200 /uL [facility] XR Shoulder - left 3 Viewson 10-14-2023 [facility] Medicine Office/Clini c Noteon 10-05-2023 Family Medicine Office/Clinic Note Chief Complaint cough, congesiton, asthma HPI Staff 62 year old female presents with a cough, congestion symptoms began 4 weeks ago and has been seen for symptoms 3 times but symptoms keep coming back pt taking doxycycline and just finished a steroid History of Present Illness 62-year-old female to the clinic for continued complaint of chest congestion and a cough with mild exacerbation of her asthma symptoms. She states she was exposed to COVID nearly 4 weeks ago. She has had the symptoms for nearly 4 weeks and has been on at least 3 courses of steroids, nebulizer treatments at home as well as 2 different antibiotics. She was initially started on Zithromax on the visit here on September 13 and is currently finishing up a course of doxycycline. She denies any chest discomfort. She was wondering if she needed to be on any more steroids. Review of Systems PHQ Score Initial Depression Screen Score: 0 SCORE Constitutional: Denies fevers, chills or general sense of illness Head/Ears/Nose/Throa t: Denies earache or sore throat Respiratory: See HPI above Cardiovascular: Denies chest pain Neurologic: Denies headache. Physical Exam Vitals & Measurements T: 36.8 ?C(Oral) HR: 101(Peripheral) BP: 128/80 SpO2: 98% HT: 56 in HT: 143 cm WT: 89 kg WT: 195.8 lb BMI: 43.52 Primary assessment: Airway patent. Respirations unlabored. Normal respiratory effort Constitutional: Vital signs reviewed. Well appearing. No distress. Psychiatric: Mental status appropriate. Normal affect Skin: Warm and dry. Thorax/ Respiratory: Respiratory effort non-labored. BBS clear ant/post. No wheezes, rales or rhonchi. Room air pulse oximetry is 98% Neurologic: Alert and oriented Assessment/Plan 1. Viral URI with cough (J06.9: Acute upper respiratory infection, unspecified) Ordered: dextromethorphan-pro methazine, 5 mL, Oral, q6hr for cough, 240 mL, Refill(s) 0, [id number], 143, cm, 10/05/23 14:20:00 EDT, Height/Length Dosing, 89, kg, 10/05/23 14:20:00 EDT, Weight Dosing 2. BMI 40.0-44.9, adult (Z68.41: Body mass index [BMI] 40.0-44.9, adult) Ordered: dextromethorphan-pro methazine, 5 mL, Oral, q6hr for cough, 240 mL, Refill(s) 0, [id number], 143, cm, 10/05/23 14:20:00 EDT, Height/Length Dosing, 89, kg, 10/05/23 14:20:00 EDT, Weight Dosing -She is currently on her second course of antibiotics within the last 3 weeks. She has states she has been on 3 different steroid since the onset of her symptoms 3 weeks ago. Her only complaints is that of a excessive amount of phlegm buildup and the cough may be caused by the same. -Will have her use Mucinex 24-hour with plenty of water to help break up the phlegm. Will also introduce Promethazine DM cough syrup to help with her cough. Advised her this will make her sleepy -I have advised the patient that if her breathing and cough symptoms worsen to go directly to the emergency department in [place] for further evaluation as more extensive diagnostic tools would be available. Follow-up No qualifying data available Problem List/Past [...] Dysphagia Loose stools Nausea Procedure/Surgical History EGD (esophagogastroduode noscopy) gastric outlet reduction (05/21/2022), Colonoscopy (05/09/2021), EGD - Esophagogastroduoden oscopy (05/09/2021), Cataract extraction, Cholecystectomy, Foot repair, Hysterectomy, Knee replacement, Shoulder, Tonsillectomy and adenoidectomy; age 12 or over. Medications Advair Diskus 250 mcg-50 mcg inhalation powder, See Instructions, 1 refills celecoxib 200 mg Cap, 200 mg= 1 cap(s), Oral, BID cyclobenzaprine 10 mg Tab, 10 mg= 1 tab(s), Oral, TID, PRN dextromethorphan-pro methazine 15 mg-6.25 mg/5 mL Oral Syrup 5 mL, 5 mL, Oral, q6hr, PRN doxycycline hyclate 100 mg Cap, 100 mg= 1 cap(s), Oral, BID, 1 refills DuoNeb 2.5 mg-0.5 mg/3 mL Soln-Inh, 3 mL, NEB, 6x/Day, 1 refills Flonase 0.05 mg/inh nasal spray, 2 spray(s), Nasal, Daily levothyroxine 137 mcg (0.137 mg) Tab, See Instructions methylPREDNISolone 4 (more content not included)... Normal [facility] Comment on above: Result Comment: Elec tronically Signed By: Mariel SAMANO, Rainer Phillips\.br\Date and Time Signed: 10/05/23 14:36 EDT Physician Referralon 024 Physician Referral [id number]#1.00TIFF [facility] Consultation Noteon 09-19-19 Consultation Note [id number] #1.00TIFF [facility] Family Medicine Office/Clini c Noteon 09-19-2023 Family Medicine Office/Clinic Note HPI Staff Carolina is a 62 year old female presenting for acute sick visit Pt was recently seen on 09/14/23 Dx with Asthma exacerbation and right acute otitis media started on Azithromycin and Levaquin. Pt states she feels like since starting the Azithromycin has helped break things up some and if starting to feel better. does wheeze more at night and some during the day. Is using nebulizer. Pt does have misdraw hand Dr Del Rio he is hard to get into would like to discuss maybe seeing foil spinner. Has productive cough History of Present Illness pt presents today for continue cough, congestion, ear pain. requesting to see foil spinner Review of Systems PHQ Score Initial Depression Screen Score: 0 SCORE Physical Exam Vitals & Measurements T: 37.5 ?C(Tympanic) HR: 78(Peripheral) RR: 18 BP: 132/88 SpO2: 99% HT: 56 in HT: 143.2 cm WT: 88.2 kg WT: 194.04 lb BMI: 43.01 General: alert, no acute distress ENMT: oral mucosa moist, no pharyngeal erythema or exudate, , nasal congestion Cardiovascular: regular rate and rhythm, normal peripheral perfusion Respiratory: Lungs expiratory wheezes all lung warner, respirations non labored, severe cough Extremities: no deformity, no trauma Neurological: oriented x 4, LOC appropriate for age, CN II-XII intact, motor strength equal & normal bilaterally, speech normal Assessment/Plan 1. Cough (R05.9: Cough, unspecified) pt was seen in and treated with azithromycin and steroids. pt is starting to feel somewhat better Ordered: benzonatate, 200 mg = 1 cap(s), Oral, TID, X 7 day(s), # 21 cap(s), Refills(s) 0, Pharmacy: [facility]/pharmacy #[id number], 143.2, cm, 09/18/23 17:04:00 EDT, Height/Length Dosing, 88.2, kg, 09/18/23 17:04:00 EDT, Weight Dosing doxycycline, 100 mg = 1 cap(s), Oral, BID, # 30 cap(s), Refills(s) 1, Pharmacy: [facility]/pharmacy #[id number], 143.2, cm, 09/18/23 17:04:00 EDT, Height/Length Dosing, 88.2, kg, 09/18/23 17:04:00 EDT, Weight Dosing [facility] External Ambulatory Referral 2. Shortness of breath (R06.02: Shortness of breath) pt is still short of breath. wheezing noted throughout all lung warner. pt to finish Z panchito. and then we will start her on daily doxycycline at least through the spring. pt states Dr. Guerrero would put her on a daily antibiotic to prevent these severe infections that she just cant shake. pt encouraged to keep appointment with Dr. Del Rio as well. Ordered: benzonatate, 200 mg = 1 cap(s), Oral, TID, X 7 day(s), # 21 cap(s), Refills(s) 0, [id number] 143.2, cm, 09/18/23 17:04:00 EDT, Height/Length Dosing, 88.2, kg, 09/18/23 17:04:00 EDT, Weight Dosing doxycycline, 100 mg = 1 cap(s), Oral, BID, # 30 cap(s), Refills(s) 1, [id number] 143.2, cm, 09/18/23 17:04:00 EDT, Height/Length Dosing, 88.2, kg, 09/18/23 17:04:00 EDT, Weight Dosing [facility] External Ambulatory Referral 3. Chronic allergic rhinitis (J30.9: Allergic rhinitis, unspecified) pt is requesting to be referred to foil spinner. will send to [facility] foil spinner Ordered: [facility] External Ambulatory Referral 4. BMI 40.0-44.9, adult (Z68.41: Body mass index [BMI] 40.0-44.9, adult) BMi education compelte Ordered: benzonatate, 200 mg = 1 cap(s), Oral, TID, X 7 day(s), # 21 cap(s), Refills(s) 0, Pharmacy: [facility]/pharmacy #[id number], 143.2, cm, 09/18/23 17:04:00 EDT, Height/Length Dosing, 88.2, kg, 09/18/23 17:04:00 EDT, Weight Dosing doxycycline, 100 mg = 1 cap(s), Oral, BID, # 30 cap(s), Refills(s) 1, Pharmacy: [facility]/pharmacy #[id number], 143.2, cm, 09/18/23 17:04:00 EDT, Height/Length Dosing, 88.2, kg, 09/18/23 17:04:00 EDT, Weight Dosing [facility] External Ambulatory Referral 5. Non-smoker (Z78.9: Other specified health status) continue not smoking Ordered: benzonatate, 200 mg = 1 cap(s), Oral, TID, X 7 day(s), # 21 cap(s), Refills(s) 0, Pharmacy: [facility]/pharmacy #[id number], 143.2, cm, 09/18/23 17:04:00 EDT, Height/Length Dosing, 88.2, kg, 09/18/23 17:04:00 EDT, Weight Dosing doxycycline, 100 mg = 1 cap(s), Oral, BID, # 30 cap(s), Refills(s) 1, Pharmacy: [facility]/pharmacy #[id number], 143.2, cm, 09/18/23 17:04:00 EDT, Height/Length Dosing, 88.2, kg, 09/18/23 17:04:00 EDT, Weight Dosing [facility] External Ambulatory Referral Follow-up No qualifying data available Problem List/Past [...] excess calories Oral thrush Pre-op exam Rheumatoid arthriti (more content not included)... Normal [facility] Comment on above: Result Comment: Elec tronically Signed By: Berry Canales\.br\Date and Time Signed: 09/19/23 14:23 EDT Ambulatory Visit Summaryon 0 09-18-2023 Ambulatory Visit Summary CAROLINA GUTIERREZ :1960 Visit Date:09/18/2023 Ambulatory Visit Instructions Your Diagnosis Cough Shortness of breath BMI 40.0-44.9, adult Non-smoker Your Care Team Attending Physician - Berry Canales Primary Care Physician - Silvestre Benavides MD This Is Your Medications List albuterol (ProAir RespiClick 90 mcg/inh inhalation powder) albuterol-ipratropiu m (DuoNeb 2.5 mg-0.5 mg/3 mL Soln-Inh) azithromycin (azithromycin 250 mg Tab) celecoxib (celecoxib 200 mg Cap) cyclobenzaprine (cyclobenzaprine 10 mg Tab) denosumab (Prolia) doxycycline (doxycycline hyclate 100 mg Cap) fluticasone nasal (Flonase 0.05 mg/inh nasal spray) fluticasone-salmeter ol (Advair Diskus 250 mcg-50 mcg inhalation powder) levothyroxine (levothyroxine 137 mcg (0.137 mg) Tab) montelukast (montelukast 10 mg Tab) ondansetron (Zofran 4 mg Tab) pantoprazole (Pantoprazole [address] Tab) predniSONE (predniSONE 20 mg Tab) semaglutide (Ozempic (1 mg dose)) tiotropium (Spiriva Respimat 1.25 mcg/inh inhalation aerosol) upadacitinib (Rinvoq 15 mg oral tablet, extended release) Procedures Performed EGD (esophagogastroduode noscopy) gastric outlet reduction (05/21/2022), Colonoscopy (05/09/2021), EGD - Esophagogastroduoden oscopy (05/09/2021), Cataract extraction, Cholecystectomy, Foot repair, Hysterectomy, Knee replacement, Shoulder, Tonsillectomy and adenoidectomy; age 12 or over. Discharge Vitals Temperature (Tympanic) 37.5 ?C Heart Rate (Peripheral) 78 Respiratory Rate 18 Blood Pressure 132/88 Height 143.2 cm Height 56 in Weight 88.2 kg Weight 194.04 lb BMI 43.01 Medications What How Much When Why Instructions New doxycycline (doxycycline hyclate 100 mg Cap) 1 Capsules By Mouth 2 times a day Cough Shortness of breath BMI 40.0-44.9, adult Non-smoker Refills: 1 Pickup at [facility]/pharmacy #[id number] Unchanged albuterol (ProAir RespiClick 90 mcg/ inh inhalation powder) 2 Puffs Inhalation Every 4 hours as needed for for wheezing or SOB Unchanged albuterol-ipratropiu m (DuoNeb 2.5 mg-0.5 mg/ 3 mL Soln-Inh) 3 Milliliter Nebulized inhalation (aerosol) 6 times a day Unchanged azithromycin (azithromycin 250 mg Tab) 1 Packets By Mouth As Directed Duration: 5 Days as directed on package labeling Unchanged celecoxib (celecoxib 200 mg Cap) 1 Capsules By Mouth 2 times a day Unchanged cyclobenzaprine (cyclobenzaprine 10 mg Tab) 1 Tablets By Mouth 3 times a day as needed for for spasm prn back pain Unchanged denosumab (Prolia) 60 Milligram Subcutaneous Every 6 months Unchanged fluticasone nasal (Flonase 0.05 mg/ inh nasal spray) 2 Sprays Nasal Inhalation Every day Unchanged fluticasone-salmeter ol (Advair Diskus 250 mcg-50 mcg inhalation powder) See instructions one puff inhales in the morning and night Unchanged levothyroxine (levothyroxine 137 mcg (0.137 mg) Tab) See instructions TAKE 1 TABLET BY MOUTH EVERY DAY Unchanged montelukast (montelukast 10 mg Tab) See instructions TAKE 1 TABLET BY MOUTH TWICE A DAY Unchanged ondansetron (Zofran 4 mg Tab) 1 Tablets By Mouth Every 6 hours Unchanged pantoprazole (Pantoprazole [address] Tab) 1 Tablets By Mouth Every day Duration: 90 Days Unchanged predniSONE (predniSONE 20 mg Tab) See instructions Take 3 tabs or 60 mg daily x 2 days, then 2 tabs or 40 mg daily x 3 days, then 1 tab or 20 mg PO daily x 3 days, then 1/ 2 tab PO or 10 mg daily x 2 days Unchanged semaglutide (Ozempic (1 mg dose)) See instructions 2 mg SubCutaneous qWeek, ordered by another provider Unchanged tiotropium (Spiriva Respimat 1.25 mcg/ inh inhalation aerosol) Unchanged upadacitinib (Rinvoq 15 mg oral tablet, extended release) Pharmacy Information [facility]/pharmacy #[id number]: [address], [place] [id number] [phone] Allergies Cefzil (Unknown) Eliquis (Unknown) Keflex (Hives) [...] you are no longer receiving treatment for. Art (more content not included)... Normal [facility] Ambulatory Visit Summaryon 0 09-14-2023 Ambulatory Visit Summary CAROLINA GUTIERREZ :1960 Visit Date:09/14/2023 Ambulatory Visit Instructions Your Diagnosis Morbid obesity with BMI of 40.0-44.9, adult Your Care Team Attending Physician - Serge SLOAN CNP Primary Care Physician - Makayla HDZ, Silvestre Linares This Is Your Medications List albuterol (ProAir RespiClick 90 mcg/inh inhalation powder) albuterol-ipratropiu m (DuoNeb 2.5 mg-0.5 mg/3 mL Soln-Inh) celecoxib (celecoxib 200 mg Cap) cyclobenzaprine (cyclobenzaprine 10 mg Tab) denosumab (Prolia) fluticasone nasal (Flonase 0.05 mg/inh nasal spray) fluticasone-salmeter ol (Advair Diskus 250 mcg-50 mcg inhalation powder) levothyroxine (levothyroxine 137 mcg (0.137 mg) Tab) montelukast (montelukast 10 mg Tab) ondansetron (Zofran 4 mg Tab) pantoprazole (Pantoprazole [address] Tab) semaglutide (Ozempic (1 mg dose)) tiotropium (Spiriva Respimat 1.25 mcg/inh inhalation aerosol) upadacitinib (Rinvoq 15 mg oral tablet, extended release) Procedures Performed EGD (esophagogastroduode noscopy) gastric outlet reduction (05/21/2022), Colonoscopy (05/09/2021), EGD - Esophagogastroduoden oscopy (05/09/2021), Cataract extraction, Cholecystectomy, Foot repair, Hysterectomy, Knee replacement, Shoulder, Tonsillectomy and adenoidectomy; age 12 or over. Discharge Vitals Temperature (Oral) 36.8 ?C Heart Rate (Peripheral) 97 Blood Pressure 116/76 Height 143.2 cm Height 56 in Weight 87.4 kg Weight 192.28 lb BMI 42.62 Medications What How Much When Instructions Unchanged albuterol (ProAir RespiClick 90 mcg/ inh inhalation powder) 2 Puffs Inhalation Every 4 hours as needed for for wheezing or SOB Unchanged albuterol-ipratropiu m (DuoNeb 2.5 mg-0.5 mg/ 3 mL Soln-Inh) 3 Milliliter Nebulized inhalation (aerosol) 6 times a day Unchanged celecoxib (celecoxib 200 mg Cap) 1 Capsules By Mouth 2 times a day Unchanged cyclobenzaprine (cyclobenzaprine 10 mg Tab) 1 Tablets By Mouth 3 times a day as needed for for spasm prn back pain Unchanged denosumab (Prolia) 60 Milligram Subcutaneous Every 6 months Unchanged fluticasone nasal (Flonase 0.05 mg/ inh nasal spray) 2 Sprays Nasal Inhalation Every day Unchanged fluticasone-salmeter ol (Advair Diskus 250 mcg-50 mcg inhalation powder) See instructions one puff inhales in the morning and night Unchanged levothyroxine (levothyroxine 137 mcg (0.137 mg) Tab) See instructions TAKE 1 TABLET BY MOUTH EVERY DAY Unchanged montelukast (montelukast 10 mg Tab) See instructions TAKE 1 TABLET BY MOUTH TWICE A DAY Unchanged ondansetron (Zofran 4 mg Tab) 1 Tablets By Mouth Every 6 hours Unchanged pantoprazole (Pantoprazole [address] Tab) 1 Tablets By Mouth Every day Duration: 90 Days Unchanged semaglutide (Ozempic (1 mg dose)) See instructions 2 mg SubCutaneous qWeek, ordered by another provider Unchanged tiotropium (Spiriva Respimat 1.25 mcg/ inh inhalation aerosol) Unchanged upadacitinib (Rinvoq 15 mg oral tablet, extended release) Allergies Cefzil (Unknown) Eliquis (Unknown) Keflex (Hives) [...] you for choosing us for your care. [facility] Family Medicine Office/Clini c Noteon 09-14-2023 Family Medicine Office/Clinic Note Chief Complaint Current pt cough, stuffy nose, wheezing, breathing heavier, left lung pain, right ear HPI Staff 62 yo female here with cough, congestion Symptoms began Saturday Complains of wheezing, cough, left lung hurts, right ear, stuffy nose, breathing heavier Pt has been taking neb treatments, zyrtec Pt does have asthma History of Present Illness Carolina Gutierrez is a 62-year-old female patient here today for an acute visit. Chief complaint URI symptoms, cough, wheezing and right ear pain. She was recently treated by her primary team with Levaquin, completed course 2 days ago. She reports symptoms returned as soon as Levaquin was discontinued. She does have asthma has been wheezing more, using her albuterol inhaler. Denies any fevers. Review of Systems PHQ Score Initial Depression Screen Score: 0 SCORE ROS - Provider Constitutional: no fever, no chills, no sweats, no weakness HEENT: + stuffy nose, sore throat, ear pain Respiratory: + shortness of breath, + cough Cardiovascular: no chest pain Skin: no rash Physical Exam Vitals & Measurements T: 36.8 ?C(Oral) HR: 97(Peripheral) BP: 116/76 SpO2: 95% HT: 56 in HT: 143.2 cm WT: 87.4 kg WT: 192.28 lb BMI: 42.62 General: No obese female, no acute distress, well-hydrated Eyes: Glasses, PERRLA Ears: Normal external ears bilaterally, normal canals bilaterally left TM pearly santiago with good cone of light, right TM is erythematous slight bulge no cone of light Nose: No deformity, discharge, inflammation, or lesions Mouth: Mucous membranes moist. Normal oropharynx, and posterior pharynx without lesions or exudates. Tongue normal Neck: Neck supple. No masses or palpable cervical nodes. Trachea midline. Thyroid without nodules, masses, tenderness, or enlargement Lungs: Equal, nonlabored respiration, lung warner with expiratory wheeze throughout, scattered rhonchi Cardio: Regular rate and rhythm, normal S1 and S2, no murmur, no rub Abdomen: Obese soft Musculoskeletal: Steady gait Extremity: No edema Neurologic: Grossly normal Skin: No rashes, ulcerations, or suspicious lesions Mental Status: Alert and oriented x3. Normal mood and affect Assessment/Plan 1. Asthma exacerbation (J45.901: Unspecified asthma with (acute) exacerbation) Patient with diffuse wheezing, using nebulizers and inhalers. Will add prednisone taper. Continue albuterol and nebs as prescribed. ER warnings reviewed. Discussed with patient to follow-up with primary team to assess if taper needs to be prolonged. 2. Right acute otitis media (H66.91: Otitis media, unspecified, right ear) Recent treatment with Levaquin for respiratory illness. She is allergic to penicillins and cephalosporins. Rx for azithromycin. 3. Morbid obesity with BMI of 40.0-44.9, adult (E66.01: Morbid (severe) obesity due to excess calories) The standard range for ages 18 and older is >=18.5 and < 25 kg/m2. Your BMI today was above this range, this falls in the overweight to obese category and there are medical benefits to weight loss. We can offer counselling, referral, and/or medical support in addressing this problem. Your BMI and weight management will be followed at subsequent visits. Orders: azithromycin, = 1 packet(s), Oral, As Directed, as directed on package labeling, X 5 day(s), # 6 tab(s), Refills(s) 0, Pharmacy: [facility]/pharmacy #[id number], 143.2, cm, 09/14/23 9:51:00 EDT, Height/Length Dosing, 87.4, kg, 09/14/23 9:51:00 EDT, Weight Dosing predniSONE, See Instructions, Take 3 tabs or 60 mg daily x 2 days, then 2 tabs or 40 mg daily x 3 days, then 1 tab or 20 mg PO daily x 3 days, then 1/2 tab PO or 10 mg daily x 2 days, # 16 tab(s), Refills(s) 0, Pharmacy: [facility]/pharmacy #[id number], 143.2, cm, 09/14/23 9:... Portions of this record may have been created with voice recognition artificial intelligence software, specifically [employer], [employer] and or [employer]. Substitutions may have occurred due to the inherent limitations of voice recognition and artificial intelligence software. Follow-up No qualifying data available Problem List/Past [...] Right otitis media Shortness of breath Viral gastrit (more content not included)... Normal [facility] Comment on above: Result Comment: Elec tronically Signed By: LUTHER ASHFORD, Serge Olivas\.dusty\Date and Time Signed: 09/14/23 12:14 EDT RAD - MISCon 08-21-2023 RAD - MISC [id number] #1.00TIFF [facility] Physician Orderon 08-20-2023 Physician Order [id number] #1.00TIFF [facility] Family Medicine Office/Clini c Noteon 08-02-2023 [...] day(s), # 6 tab(s), Refills(s) 0, Pharmacy: [facility]/pharmacy #[id number], 143.2, cm, 08/02/23 14:19:00 EST, Height/Length Dosing, 88.3, kg, 08/02/23 14:19:00 EST, Weight Dosing methylPREDNISolone, = 1 packet(s), Oral, Once, as directed on package labeling, # 21 tab(s), Refills(s) 0, [id number] 143.2, cm, 06/28/23 10:53:00 EST, Height/Length Dosing, 98, kg, 06/28/23 10:53:00 EST, Weight Dosing methylPREDNISolone, = 1 packet(s), Oral, Once, as directed on package labeling, # 21 tab(s), Refills(s) 0, [id number], 143.2, cm, 08/02/23 14:19:00 EST, Height/Length [...] Dysphagia Loose stools Nausea Procedure/Surgical History EGD (esophagogastroduode noscopy) gastric outlet reduction (05/21/2022), Colonoscopy (05/09/2021), EGD - Esophagogastroduoden oscopy (05/09/2021), Cataract extraction, Cholecystectomy, Foot repair, Hysterectomy, [...] 15 m (more content not included)... Normal [facility] Comment on above: Result Comment: Elec tronically Signed By: Berry Canales\.br\Date and Time Signed: 08/02/23 14:33 EST Consultation Noteon 07-24-19 Consultation Note [id number] #1.00TIFF Normal [facility] Auto Diffon 07-15-2023 Basophils/100 WBC (Bld) 0.3 % Normal 0.0-2.0 [facility] Comment on above: Order Comment: Order Added by Discern Expert. Performed By: #### 1 [id number], 9457214, 641985797, 5088923, 8647712, 51800240, 1077112 ####[facility] [address] [place] [address] Basophils/Leukocytes Auto (Bld) [Pure # fraction] 0.0 E9/L Normal 0.0-0.2 [facility] Comment on above: Order Comment: Order Added by Discern Expert. Performed By: #### 1 [id number], 5772879, 567141525, 4499438, 0714712, 65867001, 0355966 ####[address] [address] Eosinophils/100 WBC (Bld) 0.8 % Normal 0.0-8.0 [facility] Comment on above: Order Comment: Order Added by Discern Expert. Performed By: #### 1 1690436, 9346526, 441639097, 7809226, 6454375, 12380905, 7859231 ####[address] [address] Eosinophils/Leukocyt es Auto (Bld) [Pure # fraction] 0.1 E9/L Normal 0.0-0.5 [facility] Comment on above: Order Comment: Order Added by Discern Expert. Performed By: #### 1 0430341, 9116485, 876689660, 4666707, 4130339, 63343973, 1800098 ####[address] [address] Lymphocytes/100 WBC (Bld) 14.5 % Normal 14.0-50.0 [facility] Comment on above: Order Comment: Order Added by Discern Expert. Performed By: #### 1 8308705, 3809338, 398372247, 0452893, 3316256, 71365825, 8277661 ####[address] [address] Lymphocytes/Leukocyt es Auto (Bld) [Pure # fraction] 1.4 E9/L Normal 1.0-4.0 [facility] Comment on above: Order Comment: Order Added by Discern Expert. Performed By: #### 1 1140273, 3195998, 268555507, 7419190, 5422405, 30289030, 4481950 ####[address] [address] Monocytes/100 WBC (Bld) 7.1 % Normal 4.0-14.0 [facility] Comment on above: Order Comment: Order Added by Discern Expert. Performed By: #### 1 8320195, 5103971, 067733845, 4814425, 3823409, 95535779, 4199765 ####[address] [place] [address] Monocytes/Leukocytes Auto (Bld) [Pure # fraction] 0.7 E9/L Normal 0.2-1.0 [facility] Comment on above: Order Comment: Order Added by Discern Expert. Performed By: #### 1 6667182, 1997590, 124345850, 8281516, 7419167, 16587879, 1929348 ####[address] [place] [address] Neutrophils/100 WBC (Bld) 77.3 % High 36.0-75.0 [facility] Comment on above: Order Comment: Order Added by Discern Expert. Performed By: #### 1 6641597, 4694577, 675472079, 7162991, 3796832, 78250695, 9294964 ####[address] [address] Neutrophils/Leukocyt es Auto (Bld) [Pure # fraction] 7.5 E9/L Normal 2.0-7.5 [facility] Comment on above: Order Comment: Order Added by Discern Expert. Performed By: #### 1 9073123, 1603727, 210202936, 2809983, 5660038, 63185625, 6417202 ####[address] [address] CBC w/ Auto Diffon Erythrocyte distribution width (RBC) [Ratio] 15.3 % High 10.9-14.2 [facility] Comment on above: Performed By: #### 1 6901335, 9178339, 651698157, 7674908, 3263651, 23720545, 5419888 ####[address] [place] [address] Hematocrit (Bld) [Volume fraction] 38.5 % Normal 34.0-46.0 [facility] Comment on above: Performed By: #### 1 3267748, 0970655, 865582361, 7633370, 4289207, 42400006, 0948124 ####[facility] [address] [place] [address] Hemoglobin (Bld) [Mass/Vol] 12.6 g/dL Normal 12.0-16.0 [facility] Comment on above: Performed By: #### 1 1199291, 3920852, 639982666, 3059569, 7936950, 41634529, 8770481 ####[facility] [address] [place] [address] MCH (RBC) [Entitic mass] 29.7 pg Normal 27.0-34.0 [facility] Comment on above: Performed By: #### 1 8294128, 0399837, 267153081, 0704267, 9496592, 54377901, 4351825 ####[address] [place] [address] MCHC (RBC) [Mass/Vol] 32.7 g/dL Normal 31.4-36.0 [facility] Comment on above: Performed By: #### 1 7538539, 1996002, 918078287, 4445728, 2016922, 29883225, 0202003 ####[address] [place] [address] MCV (RBC) [Entitic vol] 91.0 fL Normal 80.0-100.0 [facility] Comment on above: Performed By: #### 1 9351667, 4558664, 630335010, 0926797, 8468067, 93892918, 5394688 ####[address] [place] [address] Platelet mean volume (Bld) [Entitic vol] 8.0 fL Normal 6.4-10.8 [facility] Comment on above: Performed By: #### 1 4436513, 7810111, 623796679, 6248161, 1137871, 55781263, 3398804 ####[facility] [place] [address] Platelets (Bld) [#/Vol] 278.0 E9/L Normal 150.0-500.0 [facility] Comment on above: Performed By: #### 1 8506460, 5541295, 571057409, 7785389, 0330695, 29532634, 1595682 ####[facility] [address] [place] [address] RBC (Bld) [#/Vol] 4.2 E12/L Low 4.3-5.9 [facility] Comment on above: Performed By: #### 1 6424200, 9669731, 299852858, 3847377, 3637682, 02905664, 2510577 ####[facility] [address] [place] [address] WBC corrected for nucl RBC Auto (Bld) [#/Vol] 9.7 E9/L Normal 4.0-11.0 [facility] Comment on above: Performed By: #### 1 3493473, 5434024, 140052259, 1672867, 4752121, 12390730, 0096958 ####[facility] [address] [place] [address] CHEMISTRYOrdered By: SYSTEM SYSTEM on 07-15-2023 Albumin [...] [Moles/Vol] 104 mmol/L Normal 101 - 111 mmol/ L Remisol Chem CO2 [Moles/Vol] 30 mmol/L Normal [...] 07-15-2023 Albumin [Mass/Vol] 3.8 g/dL Normal 3.3-5.0 [facility] Comment on above: Performed By: #### 1 5041871, 4776744, 105464730, 2017888, 8326995, 54170806, 4217445 ####[facility] [address] [place] [address] Albumin/Globulin [Mass ratio] 1.5 {ratio} Normal 1.1-2.2 [facility] Comment on above: Performed By: #### 1 5678299, 5904339, 808507447, 3065465, 1456504, 73285559, 1366085 ####[facility] [address] [place] [address] Alk Phos 55 Int._Unit/L Normal 21-98 [facility] Comment on above: Performed By: #### 1 6806922, 4246099, 605659345, 6277425, 1409281, 86772321, 4494223 ####[facility] [address] [place] [address] ALT 15 Int._Unit/L Normal 6-46 [facility] Comment on above: Performed By: #### 1 9775741, 1217313, 094982982, 9529557, 3850265, 15595706, 5193891 ####[facility] [address] [place] [address] Anion gap [Moles/Vol] 11 mmol/L Normal 6-16 [facility] Comment on above: Performed By: #### 1 0308722, 1811927, 839585435, 3921478, 0856134, 51967134, 7996164 ####[facility] [address] [place] [address] AST 17 Int._Unit/L Normal 5-43 [facility] Comment on above: Performed By: #### 1 5230073, 2257341, 903207912, 7142062, 7154814, 79908808, 9320397 ####[facility] [address] [place] [address] Bili Total 0.6 mg/dL Normal 0.0-1.1 [facility] Comment on above: Performed By: #### 1 8776055, 1501103, 920862309, 1002808, 7529204, 53075872, 8025040 ####[facility] [address] [place] [address] BUN/Creat Ratio 34 No Units High 10-20 [facility] Comment on above: Performed By: #### 1 4160824, 0360229, 520727677, 9242036, 9126729, 52713738, 5643183 ####[facility] [address] [place] [address] Calcium [Mass/Vol] 9.0 mg/dL Normal 8.9-11.1 [facility] Comment on above: Performed By: #### 1 9652235, 5573033, 236498564, 8769353, 6963920, 14296897, 3027894 ####[facility] [address] [place] [address] Chloride [Moles/Vol] 104 mmol/L Normal 101-111 [facility] Comment on above: Performed By: #### 1 3262768, 7459730, 811764092, 4613352, 5891212, 15666848, 2752745 ####[facility] [address] [place] [address] CO2 [Moles/Vol] 30 mmol/L Normal 21-31 [facility] Comment on above: Performed By: #### 1 6693538, 6500193, 883650972, 7607926, 3176906, 68166559, 4625169 ####[facility] [address] [place] [address] Creatinine [Mass/Vol] 0.5 mg/dL Normal 0.5-1.3 [facility] Comment on above: Performed By: #### 1 5086642, 2207064, 358173848, 5900638, 0490995, 60764780, 7305544 ####[facility] [address] [place] [address] Globulin (S) [Mass/Vol] 2.6 g/dL Normal 1.4-4.0 [facility] Comment on above: Performed By: #### 1 9228849, 1289120, 708639491, 9931529, 7770104, 35705672, 8780894 ####[facility] [address] [place] [address] Glucose [Mass/Vol] 100 mg/dL Normal 55-199 [facility] Comment on above: Performed By: #### 1 6454638, 7362177, 231305022, 5410669, 0142450, 55705940, 9203454 ####[facility] [address] [place] [address] Potassium [Moles/Vol] 3.4 mmol/L Low 3.5-5.3 [facility] Comment on above: Performed By: #### 1 3047321, 5210707, 790405091, 0810453, 4166472, 94404607, 7318011 ####[facility] [address] [place] [address] Protein [Mass/Vol] 6.4 g/dL Normal 6.0-7.8 [facility] Comment on above: Performed By: #### 1 8849709, 8068587, 841610357, 7986489, 2465271, 43047262, 0391068 ####[facility] [address] [place] [address] Sodium [Moles/Vol] 142 mmol/L Normal 135-145 [facility] Comment on above: Performed By: #### 1 5470716, 1878016, 202629319, 6728846, 3524229, 06080848, 7873968 ####[facility] [address] [place] [address] Urea nitrogen [Mass/Vol] 17 mg/dL Normal 5-21 [facility] Comment on above: Performed By: #### 1 3067307, 5481699, 214254378, 1580214, 1613569, 63426702, 8820168 ####[facility] [address] [place] [address] CRPon 07-15-2023 CRP [Mass/Vol] mg/L Normal <=1.9 [facility] Comment on above: Performed By: #### 1 4947994, 3499289, 244631020, 5657603, 2581711, 01922331, 7680987 ####[facility] [address] [place] [address] Consent for Treatmenton 07-01 Consent for Treatment [id number] #1.00TIFF Normal [facility] HEMATOLOGYOrdered By: SYSTEM SYSTEM on 07-15-2023 Basophils/100 WBC (Bld) 0.3 % Normal 0.0 - 2.0 % [facility] HemeAutoSS Basophils/Leukocytes Auto (Bld) [Pure # fraction] 0.0 E9/L Normal 0.0 - 0.2 E9/L [facility] HemeAutoSS Eosinophils/100 WBC (Bld) 0.8 % Normal 0.0 - 8.0 % [facility] HemeAutoSS Eosinophils/Leukocyt es Auto (Bld) [Pure # fraction] 0.1 E9/L Normal 0.0 - 0.5 E9/L [facility] HemeAutoSS Lymphocytes/100 WBC (Bld) 14.5 % Normal 14.0 - 50.0 % [facility] HemeAutoSS Lymphocytes/Leukocyt es Auto (Bld) [Pure # fraction] 1.4 E9/L Normal 1.0 - 4.0 E9/L [facility] HemeAutoSS Monocytes/100 WBC (Bld) 7.1 % Normal 4.0 - 14.0 % [facility] HemeAutoSS Monocytes/Leukocytes Auto (Bld) [Pure # fraction] 0.7 E9/L Normal 0.2 - 1.0 E9/L [facility] HemeAutoSS Neutrophils/100 WBC (Bld) 77.3 % High 36.0 - 75.0 % [facility] HemeAutoSS Neutrophils/Leukocyt es Auto (Bld) [Pure # fraction] 7.5 E9/L Normal 2.0 - 7.5 E9/L [facility] HemeAutoSS HEMATOLOGYOrdered By: Kj Jennings on 07-15-2023 Erythrocyte distribution width (RBC) [Ratio] 15.3 % High 10.9 - 14.2 % [facility] HemeAutoSS ESR (Bld) [Velocity] 19 mm/h Normal 0 - 34 mm/hr [facility] HemeAutoSS Hematocrit (Bld) [Volume fraction] 38.5 % Normal 34.0 - 46.0 % [facility] HemeAutoSS Hemoglobin (Bld) [Mass/Vol] 12.6 g/dL Normal 12.0 - 16.0 gm/dL [facility] HemeAutoSS MCH (RBC) [Entitic mass] 29.7 pg Normal 27.0 - 34.0 pg FT HemeAutoSS MCHC (RBC) [Mass/Vol] 32.7 g/dL Normal 31.4 - 36.0 gm/dL [facility] HemeAutoSS MCV (RBC) [Entitic vol] 91.0 fL Normal 80.0 - 100.0 fL [facility] HemeAutoSS Platelet mean volume (Bld) [Entitic vol] 8.0 fL Normal 6.4 - 10.8 fL [facility] HemeAutoSS Platelets (Bld) [#/Vol] 278.0 E9/L Normal 150.0 - 500.0 E9/L [facility] HemeAutoSS RBC (Bld) [#/Vol] 4.2 E12/L Low 4.3 - 5.9 E12/L [facility] HemeAutoSS WBC corrected for nucl RBC Auto (Bld) [#/Vol] 9.7 E9/L Normal 4.0 - 11.0 E9/L [facility] HemeAutoSS Physician Orderon 07-15-2023 Physician Order [id number]#1.00TIFF Normal [facility] Sed Rate Automatedon 024 ESR (Bld) [Velocity] 19 mm/h Normal 0-34 [facility] Comment on above: Performed By: #### 1 [id number], [id number] ####[facility] [address] [place] [address] Vitamin D 25 Hydroxyon 07-15 Vitamin D 25 Hydroxy 31.6 ng/mL Normal 30.0-100.0 [facility] Comment on above: Performed By: #### 1 [id number] ####[facility] [address] [place] [address] eGFRon 07-15-2023 GFR/1.73 sq M.predicted among non-blacks MDRD (S/P/Bld) [Vol rate/Area] mL/min/{1.73_m2} Normal >=59 [facility] Comment on above: Order Comment: Order added by Discern Expert. Performed By: #### 1 [id number], [id number], [id number], [id number], [id number] ####[facility] [address] [place] [address] Consultation Noteon 07-08-19 Consultation Note [id number] #1.00TIFF Normal [facility] Outside Diabetes Eye Examon 07-08-2023 Outside Diabetes Eye Exam [id number] #1.00TIFF Normal [facility] Consultation Noteon 07-03-19 Consultation Note [id number] #1.00TIFF Normal [facility] Ambulatory Visit Summaryon 1 Ambulatory Visit Summary CAROLINA GUTIERREZ :1960 Visit Date:06/28/2023 Ambulatory Visit Instructions Your Diagnosis BMI 45.0-49.9, adult Non-smoker Your Care Team Attending Physician - Berry Canales Primary Care Physician - Silvestre Benavides MD This Is Your Medications List albuterol (ProAir RespiClick 90 mcg/inh inhalation powder) albuterol-ipratropiu m (DuoNeb 2.5 mg-0.5 mg/3 mL Soln-Inh) azithromycin (azithromycin 250 mg Tab) celecoxib (celecoxib 200 mg Cap) cyclobenzaprine (cyclobenzaprine 10 mg Tab) denosumab (Prolia) fluticasone nasal (Flonase 0.05 mg/inh nasal spray) fluticasone-salmeter ol (Advair Diskus 250 mcg-50 mcg inhalation powder) levothyroxine (levothyroxine 137 mcg (0.137 mg) Tab) methylPREDNISolone (methylPREDNISolone 4 mg tab dosepak) montelukast (montelukast 10 mg Tab) ondansetron (Zofran 4 mg Tab) pantoprazole (Pantoprazole [address] Tab) semaglutide (Ozempic (1 mg dose)) upadacitinib (Rinvoq 15 mg oral tablet, extended release) Procedures Performed EGD (esophagogastroduode noscopy) gastric outlet reduction (05/21/2022), Colonoscopy (05/09/2021), EGD - Esophagogastroduoden oscopy (05/09/2021), Cataract extraction, Cholecystectomy, Foot repair, Hysterectomy, [...] needed for for wheezing or SOB Unchanged albuterol-ipratropiu m (DuoNeb 2.5 mg-0.5 mg/ 3 mL Soln-Inh) 3 Milliliter Nebulized inhalation (aerosol) 6 times a day Unchanged azithromycin (azithromycin 250 mg Tab) 1 Packets By Mouth As Directed Duration: 5 Days as directed on package labeling Pickup at [facility]/pharmacy #[id number] Unchanged celecoxib (celecoxib 200 mg Cap) 1 Capsules By Mouth 2 times a day Unchanged cyclobenzaprine (cyclobenzaprine 10 mg Tab) 1 Tablets By Mouth 3 times a day as needed for for spasm prn back pain Unchanged denosumab (Prolia) 60 Milligram Subcutaneous Every 6 months Unchanged fluticasone nasal (Flonase 0.05 mg/ inh nasal spray) 2 Sprays Nasal Inhalation Every day Unchanged fluticasone-salmeter ol (Advair Diskus 250 mcg-50 mcg inhalation powder) See instructions one puff inhales in the morning and night Unchanged levothyroxine (levothyroxine 137 mcg (0.137 mg) Tab) See instructions TAKE 1 TABLET BY MOUTH EVERY DAY Unchanged methylPREDNISolone (methylPREDNISolone 4 mg tab dosepak) 1 Packets By Mouth Once as directed on package labeling Pickup at [facility]/pharmacy #[id number] Unchanged montelukast (montelukast 10 mg Tab) See [...] mg oral tablet, extended release) Pharmacy Information [facility]/pharmacy #[id number]: [address], [place] [id number] [phone] Allergies Cefzil (Unknown) Eliquis (Unknown) Keflex (Hives) [...] for choosing us for your care. Normal [facility] Family Medicine Office/Clini c Noteon 06-28-2023 Family Medicine [...] day(s), # 6 tab(s), Refills(s) 0, Pharmacy: [facility]/pharmacy #[id number], 143.2, cm, 06/28/23 10:53:00 EST, Height/Length Dosing, 98, kg, 06/28/23 10:53:00 EST, Weight Dosing methylPREDNISolone, = 1 packet(s), Oral, Once, as directed on package labeling, # 21 tab(s), Refills(s) 0, Pharmacy: [facility]/pharmacy #[id number], 143.2, cm, 06/28/23 10:53:00 EST, [...] Dysphagia Loose stools Nausea Procedure/Surgical History EGD (esophagogastroduode noscopy) gastric outlet reduction (05/21/2022), Colonoscopy (05/09/2021), EGD - Esophagogastroduoden oscopy (05/09/2021), Cataract extraction, Cholecystectomy, Foot repair, Hysterectomy, [...] G benzathine (Hives) (more content not included)... [facility] Comment on above: Result Comment: Elec tronically Signed By: Kirit MAGANA, Berry Olivas\.br\Date and Time Signed: 06/28/23 12:45 EST Consultation Noteon 06-19-20 Consultation Note [id number] #1.00TIFF [facility] RAD - CT Reporton 06-19-2023 RAD - CT Report [id number] #1.00TIFF [facility] Consultation Noteon 05-29-20 Consultation Note [id number] #1.00TIFF [facility] Consultation/Specialist Note on 05-24-2023 Consultation/Special ist Note [id number]#1. 00[facility] Provider Orderson 05-24-2023 Provider Orders [id number] #1.00[facility] Provider Orders [id number]#1. 00[facility] Coding Summaryon 05-22-2023 Coding Summary HTMLBase 64 YcxygmebUQi5wYt+PGhl YWQ+XR3YLPWqE32aaNBf jG8qC6KSHXmBClljGHFS JJoRKpVjxyWeEB6pfADz ZXJu IC8+MD1eUXBcZwpreUJr j9I0nBT5P14nxx9wNEfr iHJ6OCHvTeBsjwqci7dc zOy0HXiwXivhUrNh AFFcxZ26ZNC2bE46Mb10 zCQcnRJaz3wlyKk4KjTx NFDlGWQ3gQcoZOywb4Ph OFFtI12joUMvk7X9 IGNvbGxhcHNlOyBlbXB0 vZ6xJXnlqbjhb1pdfrvx Pxb9qt65iLJle6Y8oLW7 M1PyumT7KCImvFBz BgxxhNVIeF8nxqulj7hq pgfoXcVtGKAkVHc4XIq3 DLEtfPunQrUyHY58RIL1 SXRkhtAlQ6GgAQOw sIdlAzP0m2Y0Zx3NX7IL XgilA3MNLDGZXRyndXJ+ JS00li26X3GuMivlNne0 WSLmPUZ4jVX0qG5t QIUrZPusu4O6tCT4R5Tl mrNnwb8ey9wzAPHoZLns U40vgTBjx5H2IGHtoPS6 ODXkwWvmBrPupZ52 Oyc+WAXjgGtwi0GvRzbh i7ymw9jysFj7VnksXZAq amYmqUlxCHI0s3HqHm1x VFBylYI1vQR9vU5y AvRoPjU2WMdaO761GuSg sCIhDfkuR99mC4BcbCZ+ TZGaXdk8MWXgeGgaXO8m N6DuYMKqzrmgvGBm kXixVA0jGPXvsbjzIRBx fQ3oQEPhP1j2OuLoRjT6 HIfbV9LaJGUezhhhBr46 tV8xJzQtCvJ4EXnl B5NgvhX9MYCqsFZeXAwb RNZ5T47ls2R0GMVzAPJz VVZ8jRM5tH9wfBvfabze bGVmdDsgdmVydGlj FUbeBDbfF390VRCiqQpn PkNvZGluZyBEYXRlOiAg MTEvMjIvMjAyMzwvdGQ+ IWVxMPC0sUpmJKRx qTQqRWaxPu0wdGnhvLcp OZ4kTEJwciiwUBQsgW7i RGTyuZGblTllNP4jZNBt kdrpf068OrFyICA7 BIDnrPZcD3HtzW6xQoRm UZLdAXWrX8KglYAxANso C198LLymVfU1BGAonrNj U2WwYHCnyZrjPxJ5 k7E0Ru9Ge2InyxzuZ7Ly ePAmAwRjRhjkBIb8R6Zl PjwvdHI+BG31EHVnWK88 XJj2MWN0vAtbIQto YSUcZ6HgsP5vNlEhMIWw ZGRkOyc+PHRhYmxlIHdp ZHRoPScxMDAlJyBzdHls BD0dHu9aLXUtFSGm wOjsbMHiJkZdr7jiZYWo LTygSH1mfAxuY2VrnRD2 ZLBwa3d7Tl31M84eS2Qi dXA+AQAefNY5xFU2 oT2fMjPjDqI8HJcmW522 ZrKfoGGaZgrik9cit3nn xDm9QnI5LUSoeuFetRmx CBG5m2YrDr07X44z IHdpZHRoPSIxNSUiIHZh tSyhft1veM4wQt0+PGNv eJG7hNY7gD5gFcEmPgY7 EVjnM162NiKhvRYm Vevwg7ezb5panKq4GwAn PRXvliXdrCzqLWA9i1Ng Eg37W0LmhZjia1WyVxx3 or98uIUqp1N1hBS8 Y0MmVEAdmhzajQAfyVnx IR6eEEFsgiadDPIynX9d DFRsV2c4UgFxJhU7AWoi Z1SwmuB0OJFjwXOe AEKtuCCAfF0gvhjgv1bj gtkoDmOaNHDsBMh1FUp9 WCKgcEasAqLoTIA8TnL0 PKB5cGTwlO9czBgr xpwsuO0fYui+EOS3vYVm iOOVCK9lTpmtrWU+PHRk GLJ0sLycKEcgVVIdnJ9f HMBuS3g1MwDsCaN1 FRjjU9WgbzB6LCFaiBVh POQnfGHYmH0omognb9bk qxicRwZsPZUrURn0IWg9 LWFsaWduOiBsZWZ0 BlQ4HZK0lKFljD2bpEop wddheN4dEss+QmlydGgg OFL9HCp3Y3IrQfo3HZEl vChuPC0avOKlLRml Th8mlDyduDvzKG2aDMOr yjsct548DdIvx1ojNZUc mTQdNKolSPI1P05qa3M2 AWVvBKHpEUZ0tRJ5 bB3cmFoacoqakVZbnMxy tdKjnRmiADimHKarA044 SJHupEyaXlLuQZy6G3Ea Xyb8CBXlbKieZQ7i wCJxQZolUx1fmKcpeEuv GY8aEJEeopzgp684HhBf b4jaBVDcyIZiHXhaRTQ6 A51fu4V4SGHoUYTb WPR4rBM7cZ6ceJjqdhzf bGVmdDsgdmVydGljYWwt XZtbO065TFOyqXydBiXw aMn5T6XeRsa3LVVy nAylYM9ftEJwJQpmJz6n lYfviJhlME5kTYDoktic j833ZgRai6erGJCkdFNo BKynWTA6X66bk9C2 KJGrEJQwRKD8kPA4yY1i bGlnbjogbGVmdDsgdmVy wVcnOWcqSEadV339LXCu cDsnPlBhdGllbnQg ARiyCXj5R8NtZbnaiRI+ RI94FAFtLA85oKNtbBVu l3vwnUf7SaGuXAYcBVG3 tXjpLFgsh3EkFNNy L51voYDrg8E0JNLypSjf tKKxPbMfuKO1rZ3sMOfv cxfry8wfjzcnYkhxs9cn eq98yD54Z82aELfv ZHRoPSIzMCUiIHZhbGln lj6hsW7cKm5+PGNvbCB3 wIF3xR7oGKGbWjY2GZrp Y625YeKcjVXsTama g7bce0sgwEr9AdA5KAZc tcHnoUdjCNM2n2IiUq82 J91xRJtdMXFrWDGxJQOp ECZcpUlfnk5gdP1d Ii8+DSDyrWZ1kAX4qI3n QdAbAfV8CRaqO387GlIl cPVjQcvyT62lW2VeoFR+ IRMkXro2XVYzaOfg UU4nzKBcJRdpYy9pPGO8 GgAbUkSnQLgmQ1RtAMZk rrhctclntPC0IBJlDTYm pC89Qf7nzAicBNAe wALJxN9tybvvt6oauyzh SyEzWWBiRKe5HSv1PGFt xGesAsQaUXM3XgS1HBD1 oEBwjT4pfGijogvf iN2mO4WxXDRfpnsjOo01 iW8bOmTbKaP3TKtcVfj+ OHeIFFGPREDALTlgWN5E NL49TG44iOTld5Y5 vIL7T1MkYKIcnojxwepb mNE0TQLtNKOrsX63hJTp JGkrGg7mo0M4n660AFMx BJIfbC63Mm0dkSmu IBAftMTXvJ3gayygi0pg fgmxWuMbGCWdMXm9UHi1 ZQXhxJyyZjYkIDK9NwW3 DDS4tMNgeA8edYss iorbiK1rJgz+MDUvMDcv GAi0IKmxoDS+PHRkIHN0 mJetSSomFXKjkJ0aLMYw L4a7NxHzZkK7GJlt O7ImQIEsmbdbAd36mF0w EuPlTiY6PCdjB9UbpzC1 OASucFFfFVhpNHJ7H14e x8Y9JCJwWRTnYMG8 tRW8iJ7hsOuothtdlQAx dDsgdmVydGljYWwtYWxp Q971WVKcsNjzPjRbDCel KEVdLI57DN93rYLe m9U5eCB1O2OdTZCxqhop mrubzRC1NCZdGHNuzP20 fYIuGRxqLo3kr8J1k324 MBOlTGUcvN21Hx6i lIkhCSGpeSBAzH8difyf u1hjpmgiRiBxCTYxJIl8 TBm6EWJddNvvGcZhEIV5 GgB0ZQU2rRHncA5g oQqnidbvnK6cVac+RkVN NXmPEY81QQ17tESyw2N8 oYD4C2RgKVNbuyosovog oQT1YHNzRGLzkO35 cQUmYYmfSg8so7M2b344 VKMvRJRaxP93Jw6ykMrd EAYlsWWEhZ3kergam8zo cjogIzAwMDAwMDt0 WHp4VWPtwDnfAaAdFWF2 JyQ1MDR2fZOqcV4goMxx fzmegT6cEpb+D8BeFIB3 RWLup706M4DhNrgd dHI+FZ17DCBsKG25zXCo mNFyy3ayfQv4NuJwMSSc KAA7oMnyKApot7UwWTYc Z29bwPTii7E3LAKp mKfncYGsTlZyrRS5cN5c OKrxhudcm0ljjxcxUbfb b2phin35uE07U38aPDhm ZHRoPSIzMCUiIHZh wKiqwo1nsL7sLt4+PGNv mAP3bLS1gF7qUnKlPsO9 GMtbP307JnKxjFGhHttq o2gze5plvCn0VyKi IPSvbyKawAenGWM9k3Xf Kf06K37iBHobOIAcWTUk XTNsHUGewWqice7uhK2r Ii8+JE6nj4vhya98 nB12sTC+KMPeWZP3rGyx MRehDSElmJ3qDSvwUgJ6 PPChLaUucR76wVAlEEai No4tcLnvtYtnZW4x DQLgidbjj172GkJup2px EIVkwZGgSMgjVFG7U89b d7L6VKWuQIOxGHT4eVD9 xU3cfPiwhruprTIr dDsgdmVydGljYWwtYWxp J653IPLheBjgZhBvgEBw V6bufgGVGG1gBuvpePP+ XXBrSRK7xKzaZLmd LARuyY6xHXRmP4v0TqLr VqU5MNpeF8YstvX3TDHu pLJkXJPllDMNpP9xcxct q8ajztynXgXoHKXh HRd2QRb3TMJibMbpAyId YCC1ZhG7BFE0fWItvF3d rHmmjihqwS4yChy+RklO OjwvdGQ+PHRkIHN0 xUyrFWpjFMFctS5gBFRb K8d1QuMeDeT5JDqnQ7Si sfG6TDPmhJJvBDYudEGL vO4cglare3yrfcll HwReUXMtYCo4KXw2WUHv xYlnNvAoOMP5ZyO2YDA4 aWClaH9fzHqwnhuksD5l Oyc+TVJOOjwvdGQ+ VHFqTFJ0vRvhRXplWFHr gU1qIEWaY8e1ZyRxRbI9 BPocE2HtpiZ6ZQYncTXn ETDrbJZBcR4grfnq z1rswnplLmMnNMBcTHr3 RUz7ANJsvGehPoCjNZF2 QeS3FJK8tQHuaV4qqRzw swkrlN3uSey+UGF5 NVM2YN59GU87M8UzBefn dGFibGU+PHRhYmxlIHdp ZHRoPScxMDAlJyBzdHls BS7sOx9dJEYsDCFp bGx (more content not included)... [facility] Consent Formson 05-22-2023 Consent Forms [id number]#1. [facility] Outside Records [id number]#1. [facility] Tele[facility] 3 Telemetry Strips [id number]#1 .[facility]-21-2023 Inpatient [place] [address] Patient Discharge Instructions Name: CAROLINA GUTIERREZ : 1960 Patient Address: [address] [place] [address] Primary Care Provider: Name: Silvestre Benavides MD After you are discharged if you find you have any questions, please, call [phone] ext [phone] to speak to a nurse. The Pharmacy at [facility] is open Saturday through Saturday from [...] alcohol and/or drug addiction problems; contact the Mental [facility] 21/01 Crisis Hotline -Text 4HOPE qh 475670. If you received any narcotics, sedation, or [...] business decisions or sign any legal documents [facility] would like to thank you for allowing us to assist you with your healthcare needs. The following includes patient education materials and information regarding your injury/illness. CAROLINA GUTIERREZ has been given the following list of follow-up instructions, prescriptions, and patient education materials: Follow-up Instructions With: Address: When: Rosa Dunbar [address] [place] [address], [address] [place] [address] [facility] (1) 05/28/2023 10:30 AM Medications During the [...] nasal spray) 1 puff(s) Nasal every day. fluticasone-salmeter ol (Wixela Inhub 250 mcg-50 mcg inhalation powder) [...] nasal spray) 1 puff(s) Nasal every day. fluticasone-salmeter ol (Wixela Inhub 250 mcg-50 mcg inhalation powder) [...] Moderate f (more content not included)... [facility] MAGR Intraoperative Record MAGR Intra-Op Record Summary Primary Physician: Rosa Dunbar DO Finalized Date/Time: 05/21/23 10:19:12 Pt. Name: CAROLINA GUTIERREZ KENDY Dimas/Sex: 1960 FEMALE Med Rec #: [id number] Physician: Rosa Dunbar DO Financial #: [id number] Pt. Type: O Room/Bed: [facility]/ Admit/Disch: 05/20/23 06:11:47 - Institution: Case Times [...] Role Performed Surgeon - Primary Anesthesiologist of Operating Engineer Record Time In 05/20/23 07:28:00 05/20/23 07:28:00 [...] Brittany E CSFA Radloff, Leigh-Ann CSFA CST CST Role Performed Operating Engineer Scrub Personnel Singe Machine Operator Time In 05/20/23 07:28:00 05/20/23 07:28:00 05/20/23 07:28:00 Time Out 05/20/23 09:33:00 05/20/23 09:33:00 05/20/23 09:33:00 Procedure Arthroplasty Shoulder Arthroplasty Shoulder Arthroplasty Shoulder Total Reverse(Left) Total Reverse(Left) Total Reverse(Left) Last Modified By: Siomara Espinoza RN, Lauren L RN Wheeler, Lauren L RN 05/20/23 09:33:30 05/20/23 09:33:30 05/20/23 09:33:30 Entry 7 Case Attendee Keisha Sanderson CST, CST CSFA Role Performed Singe Machine Operator Time In 05/20/23 07:28:00 Time Out 05/20/23 [...] Yes Total Reverse Primary Surgeon Rosa Dunbar DO Surgeon Comment LEFT REVERSE TOTAL Start [...] Participants Sheri Vásquez DO, John M MD, [facility] (more content not included)... [facility] MAGR Postoperative Recordon 05-21-2023 MAGR Postoperative Record MAGR Phase II Record Summary Primary Physician: Rosa Dunbar DO Finalized Date/Time: 05/21/23 10:28:27 Pt. Name: CAROLINA GUTIERREZO.B./Sex: 1960 FEMALE Med Rec #: [id number] Physician: Rosa Dunbar DO Financial #: [id number] Pt. Type: O Room/Bed: [facility] Admit/Disch: 05/20/23 06:11:47 - Institution: Phase II [...] Signed By: Ligia Claudio RN 05/21/23 10:28 [facility] POCT Glucose Levelon 023 Glucose [Mass/Vol] 171 mg/dL High 74-118 [facility] Comment on above: Performed By: #### 4 [id number] ####[facility] (DEFAULT)[address] [place] [address] Pharmacy Noteon 05-21-2023 Pharmacy Note I have [...] nasal spray) 1 puff(s) Nasal every day. fluticasone-salmeter ol (Wixela Inhub 250 mcg-50 mcg inhalation powder) [...] list against external fill history and available AUTOMOTIVE WINDOW TINTER medication history to ensure accuracy. Reviewed regimen upon discharge which is appropriate and correct. [Electronically Signed on: 05/21/2023 13:13 EST] Andrew Martino [Verified on: 05/21/2023 13:13 EST] Andrew Martino [facility] Pharmacy Note I have personally reviewed the [...] puff(s), Nasal, Daily, 0 Refill(s), Refills: 0 fluticasone-salmeter ol: 1 puff(s), INH, BID, Refills: levothyroxine: 137 [...] Comments: [Electronically Signed on: 05/21/2023 07:59 EST] Andrew Martino [Verified on: 05/21/2023 07:59 EST] Andrew Martino [facility] Anesthesia Noteon 05-20-2023 Anesthesia Note Patient: CAROLINA GUTIERREZ Age: 62 years Sex: FEMALE : 1960 Associated Diagnoses: None Author: Naveen Wade MD Postoperative Information Post Operative Note Health Status Allergies: Allergic Reactions (All) Moderate Keflex- No reactions were documented. Penicillin- No reactions were documented. Unknown Cefprozil- Unknown. Dabigatran- Unknown. Eliquis- No reactions were documented. Problem list: All Problems (Selected) Acquired equinus deformity of foot / SNOMED CT 58423097 / Confirmed Allergic rhinitis / SNOMED CT 809774343 / Confirmed Anemia / SNOMED CT 468924544 / Confirmed Anti-cyclic citrullinated peptide antibody detected / SNOMED CT 2931636151 / Confirmed Anti-nuclear factor detected / SNOMED CT 0279659318 / Confirmed Arthritis / SNOMED CT 4735202 / Confirmed Asthma / SNOMED CT 392698896 / Confirmed Chronic peripheral venous hypertension with lower extremity complication. 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 / SNOMED CT 279970040 / Confirmed Diabetes / SNOMED CT 843512174 / Confirmed Diverticular disease / SNOMED CT 3413446658 / Confirmed Esophageal web / SNOMED CT 45591984 / Confirmed GERD (gastroesophageal reflux disease) / SNOMED CT 049282031 / Confirmed Hyperlipidemia / SNOMED CT 66402048 / Confirmed Hypothyroidism / SNOMED CT 40337377 / Confirmed 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 / Confirmed Multiple nodules of lung / SNOMED CT 9763938231 / Confirmed Obesity / SNOMED CT 6800922925 / Confirmed Physical Examination Vital Signs (last 24 hrs) Last Charted Heart Rate Peripheral 87 bpm (MAY 20 10:30) Resp Rate 14 br/min (MAY 20:25) SBP 135 mmHg (MAY 20:) DBP 74 [...] on: 05/20/2023 12:32 EST] Naveen Wade MD [facility] Anesthesia Note Patient: CAROLINA GUTIERREZ Age: 62 years Sex: FEMALE : 1960 [...] equinus deformity of foot / SNOMED CT 04788495 / Confirmed Allergic rhinitis / SNOMED CT 747316677 / Confirmed Anemia / SNOMED CT 767152881 / Confirmed Anti-cyclic citrullinated peptide antibody detected / SNOMED CT 4687559774 / Confirmed Anti-nuclear factor detected / SNOMED CT 5263974369 / Confirmed Arthritis / SNOMED CT 5792141 / Confirmed Asthma / SNOMED CT 882902345 / Confirmed Chronic peripheral venous hypertension with lower extremity complication. / SNOMED CT 8089681090 / Confirmed Chronic sinusitis / SNOMED CT 12895921 / Confirmed Colitis / SNOMED CT 265597713 / Confirmed COVID-19 / SNOMED CT 6654745805 / Confirmed Decreased diffusion capacity of lung / SNOMED CT 62175091 / Confirmed Deformity of calcaneum / SNOMED CT 269530815 / Confirmed Degenerative joint disease of ankle AND/OR foot / SNOMED CT 584227011 / Confirmed Diabetes / SNOMED CT 957702805 / Confirmed Diverticular disease / SNOMED CT 2240231288 / Confirmed Esophageal web / SNOMED CT 00354198 / Confirmed GERD (gastroesophageal reflux disease) / SNOMED CT 366397493 / Confirmed Hyperlipidemia / SNOMED CT 67735776 / Confirmed Hypothyroidism / SNOMED CT 35551599 / Confirmed Immunoglobulin subclass deficiency / SNOMED CT 745488002 / Confirmed Multiple nodules of lung / SNOMED CT 3768024354 / Confirmed Obesity / SNOMED CT 6366171112 / Confirmed Resolved: Bilateral pulmonary embolism / SNOMED CT 36862341 Canceled: Degenerative joint disease involving multiple joints / SNOMED CT 226291824 Canceled: Hypothyroid / SNOMED CT 97453738 Histories Family History: Diabetes mellitus Mother Asthma Father Heart failure Father Aneurysm Father Lymphoma Mother Pulmonary embolism Father Procedure history: Meniscus of knee joint (53931080). Comments: 05/03/2023 14:50 LAVONNE Storm RN, Noemi Olivas left knee repair Colonoscopy (068334924). Total knee arthroplasty (0943343709). Comments: 05/03/2023 14:49 Noemi Arshad RN right Cholecystectomy (09846467). Bilateral cataracts (565840424). Tonsils and adenoids (822687409). Foot (37097678). Comments: 05/03/2023 14:51 Noemi Arshad RN reconstruction bilateral feet Vaginal hysterectomy with partial colpectomy (559029412). Hematoma (2733625147). Comments: 05/03/2023 14:53 Noemi Arshad RN left [...] Diabetic Substance (more content not included)... Normal [facility] MAGR Intraoperative Recordon 05-20-2023 MAGR Intraoperative Record MAGR Intra-Op Record Summary Primary Physician: Finalized Date/Time: 05/20/23 07:32:42 Pt. Name: CAROLINA GUTIERREZ/Sex: 1960 FEMALE Med Rec #: [id number] Physician: Rosa Dunbar DO Financial #: [id number] Pt. Type: D Room/Bed: / Admit/Disch: 05/20/23 [...] Draper, Lora RN Role Performed Anesthesiologist of Operating Engineer Operating Engineer Record Time In 05/20/23 07:15:00 05/20/23 07:15:00 [...] Area (Im (more content not included)... [facility] MAGR PACU Record Summary Primary Physician: Rosa Dunbar DO Finalized Date/Time: 05/20/23 10:38:00 Pt. Name: CAROLINA GUTIERREZ/Sex: 1960 FEMALE Med Rec #: [id number] Physician: Rosa Dunbar DO Financial #: [id number] Pt. Type: D Room/Bed: 224/1 Admit/Disch: 05/20/23 06:11:47 - Institution: PACU Case Times MAGR Entry 1 In PACU I 05/20/23 09:34:00 Discharge from PACU 05/20/23 10:27:00 I Last Modified By: Jessenia Ayon RN 05/20/23 10:37:58 Finalized By: Jessenia Ayon RN Document Signatures Signed By: Jessenia Ayon RN 05/20/23 10:38 [facility] MAGR Preoperative Recordon 1 07-20-2022 MAGR Preoperative Record MAGR Pre-Op Record Summary Primary Physician: Rosa Dunbar DO Finalized Date/Time: 05/20/23 08:05:44 Pt. Name: CAROLINA GUTIERREZ/Sex: 1960 FEMALE Med Rec #: [id number] Physician: Rosa Dunbar DO Financial #: [id number] Pt. Type: D Room/Bed: / Admit/Disch: 05/20/23 [...] Signed By: Nata Sánchez RN 05/20/23 08:05 [facility] Nutrition Noteon 05-20-2023 Nutrition Note Chart reviewed; 62 yo female diagnosed with s/p shoulder repair; diet order cardiac; no recent weight changes; no difficulties with chew/swallow identified on admit; patient currently appears at low nutrition risk; encourage increase po as maria g post-op; monitor po for adequacy, wt/labs for changes; follow, assist prn. ts [facility] Operative Report - Surgeon/P john paul 05-20-2023 [...] infraspinatus. Also fatty infiltration into the deltoid. [id number] Procedure summary: The patient was brought to [...] on: 05/20/2023 09:17 EST] Rosa Dunbar DO [facility] POCT Glucose Levelon 023 Glucose [Mass/Vol] 127 mg/dL High [address] [place] [address] Comment on above: Performed By: #### [id number] ####[facility] (DEFAULT)[address] [place] [id number] Glucose [Mass/Vol] 94 mg/dL Normal [address] [place] [address] Comment on above: Performed By: #### 4 [id number] #### [facility] [facility] [address] [place] [id number] Progress Note - Nurseon 05-02 Progress Note - Nurse Pt. arrive from OR via cart alert and oriented and in stable condition. Report given by Jessenia Pendleton RN. Polar care, edgar renteria, and scd's in place. Pt. reports a tolerable left shoulder pain. Circ checks to left arm WNL. Sling in place. Pt. oriented to room. Vitals initiated. Instructed pt. on coughing and deep breathing and foot pumps and ankle circles. Dressing to left shoulder dry and intact. [Electronically Signed on: 05/20/2023 11:23 EST] Pop Rodriguez RN [Verified on: 05/20/2023 11:23 EST] Pop Rodriguez RN [facility] XR Shoulder 1 View Lefton XR Shoulder 1 View Left History: Shoulder replacement Technique: Left shoulder, 2 views COMPARISON: [none] FINDINGS: Status post left shoulder arthroplasty. The prostheses are in anatomic alignment. There is air in the subcutaneous soft tissues. IMPRESSION: Status post left shoulder arthroplasty. Final Signed (Electronic Signature): Delmar Miller MD 05/20/23 11:33 a Technologist: SLIM [facility] Comment on above: Order Comment: janeth lt status post shoulder replacement Progress Note - Nurseon - Progress Note - Nurse Pre-op call done, instructed to arrive @ 0600 on 05-20-23, NPO after midnight-verbalized understanding. [Electronically Signed on: 05/17/2023 10:00 EST] Jessenia Ayon RN [Verified on: 05/17/2023 10:00 EST] Jessenia Ayon RN [facility] ECG 12-Leadon 05-16-2023 ECG 12-Lead [id number]#1.00TIFF [facility] Lab Reportson 05-16-2023 Lab Reports [id number] #1.00TIFF [facility] Patient Correspondenceon Patient Correspondence [id number]# 1.00TIFF [facility] Provider Letteron 05-15-2023 Provider Letter [address] [place], [place] [id number] May 15, [address] [address] : [address] Dunbar, The above patient has been evaluated at your request for preoperative clearance. After assessment of available pertinent labs and diagnostic tests, I feel this patient is medically optimized for surgery. Final discretion of whether the patient is cleared for surgery remains up to the surgeon/anesthesiolo gist. Thank you, MORENA Castillo [facility] Auth for Release of Medical Recordson 05-13-2023 Auth for Release of Medical Records [id number]# 1.00TIFF Normal [facility] Coding Summaryon 05-13-2023 Coding Summary HTMLBase 64 LpaozhczGQl3dKu+PGhl YWQ+VW3HQMLcY67szEIl eQ1lB0QYHYjCKqtfDJDP MQbXAlUnrnFuBU3txNPz ZXJu IC8+FG2dQCNsNcectBDi e5Y5hTN2Z56ems7tMCnk dZT9KEZkDbUjyzmxx3la sZa4AKirTpdcEsMp RGQxkP81YZE7lO21Ul09 oVOodDDau1jlcIj7ImJk PEDsIKA9hDpnVObgw1Rr NJIsB38uhLYjt6Q7 IGNvbGxhcHNlOyBlbXB0 hF9zBCspvjhcf5qnxioa Uqw2pr76iKWup6B6fMZ5 P7ZwzfS4TRBbkZBe HhkadUOItQ6kbfhsz4hk wdejNqRwMCBjCVm7PVw7 XUDsaSnfOfPlDT90ZVW8 OLHrppTwO0XxFRZr gTmmMlI6c6T4Jb0EV8NZ SodxY8MQUCYCYKfpsLR+ JM62vq34G2HaCeaeJgw7 EYOzEQA4lHF8zW9e TJMdYKgck2B0jGB6E2Kz ciXstj2vh8tzOOIsOGxr H11jzGQsc5D7WXObtLI6 GPVgiGlkPpGieP05 Oyc+TSBvbNsfw2BbFhye r8qpt6surPw8SrlmLNDh boGnhMerLMW1q3AwWo4a HLVhsHS9xKD0nN9v UuDqDaI2BMfwG537FbMl mAGfAbdaM85mD4HhmTA+ SDVxZdv9CRBjmGsvLO3h F2XkDJGpccnlmUSy xXqhEE8mGZBfyizzGSAv lF2iSEZmS4t9MdUhRxU9 IDfvI8JtLDOkswkgQr78 lB6fTlYkGtG6EQvz X0AcviG5QPBjkKGdZWjk MXQ2X92vg2J4CKNhIDFw ZPX8jPQ7lE8duPwefuww bGVmdDsgdmVydGlj BCziODehZ511BFRzfOar PkNvZGluZyBEYXRlOiAg MTEvMTMvMjAyMzwvdGQ+ DMJuPYZ4dJsyQBCt pZArENxdFz3tdXdipOjs IW9wCXXnnkcnRWNivR5k BKMjvSQhrOprJU5kIKVw jgjxh933BfLbMNQ3 AUTodRCqN5RfiR8uQeRd YXNcZTAoK6CuzRRiORsk H929BEskWmK0SMDtlrTa E7XnZSEenAceYfM0 o1J5As7Vf9GfwfzhR1Ap tSTlMpMvQijsWTd0X1Pi PjwvdHI+ZD07NCAqBI77 MXa8FJK7aPjjXBfl JGRzR0BijJ1rSeTeCJAn ZGRkOyc+PHRhYmxlIHdp ZHRoPScxMDAlJyBzdHls AY1sWp2vTCFiOTNy uAmtxEVrDaRny2feHXOz UAcrNR0cjLpeJ3WwrYF3 NWRtd3n7Hr19F52uQ6Ty dXA+FBWtxOO9mXF6 tP3yNiUsLeV4KJciN107 ZmGkrIKwQzkae2wjv6yx yHj3QdS2FAJevjPvgHfa JIB8b8QxYf48R15k IHdpZHRoPSIxNSUiIHZh yOmztv9fdA3bPs1+PGNv gGH6aQN9yC6wUoDkFvW1 RSrrK884YbXbqPDb Jmlbp4tkk1ykbGv3LpNh MJVaqmTisGouJPN8i2Gt Fs34H5PamOwth8UrBxk1 ah69jWZmy0V8bIQ4 D1UtDZElyattsUNpmKpv SX0pRTArysaaZYYenB2b WWWxI0q9DuSmVqU4RQvy L5IxopT7RMPisNXl VUIqfXSEoT7ohbfbx9dh snphCjHlZLQoAMy1AFm1 ZKWbdZmlZiJaJPE2FiJ2 WUU3rMJluA9kfOoi lfomxP9eFcr+OGQ1zDXt wBLZRI5uWltoiRM+PHRk UDN6sAfnYGjrJTEfaA6l KSEyH6y0ZcUvSpM7 WLskV3SfjlC6TPAkfFBs TXTadVKOvU8ynvscd8xx habiDzNsDMEfYPo3HZp1 LWFsaWduOiBsZWZ0 NaN4VTS7gZRxzS4zlJwb vybvwC3eRcd+QmlydGgg ZRM6IXv1M3VlQer1FDFn cXhgYK0liYLxHDkh Gm1dzUcxnQbyAG3pFMDi ujddw023ExThr2qjAIZv bVJdLFnfLQM1R64gc3G4 JQGzVRHvAAR8rHX3 sI3drUwuaamawUCucQjp liBesYifHFloHQbrY168 BTOjlYtrSrHuAEv6I5Se Rfe1KLXlyYojZV4d uBMzFRnzXd4rgWxioXax IB6sUXLxnuldv063ZiDd z8njUOPrqZDoKZkxMXT3 J08dt9U0VCTdQVNg ADD7kSC4jT7ejRlqiphd bGVmdDsgdmVydGljYWwt TNpbF489MARisJrvChEl vDk4L7CgXrz8ALMp xMegDP2itGXrRVqxRb6k hJojfOcdJP0wOLHdtvkf r442KfCkn6lyXOOjdDDe BXcfIYO9O29ko4Y4 WSYdOEYfOQO2zYZ3yX4h bGlnbjogbGVmdDsgdmVy wOueUGhfAQizC235LMAo cDsnPlBhdGllbnQg MPbaGSu9Q4ZnHbsdtDA+ XH97WPJrTA24lKIodNRo w9qsxMo6YiNzLJJnYPF6 kKpuSLubi1HfPIVt R00wbELnq3N4XJJnnUre cZNnJaJwjMR7rB3gWGvu blkmx5gtpsszPjsun8gs va66fJ68G13kLKta ZHRoPSIzMCUiIHZhbGln xg4zfO9xWr9+PGNvbCB3 yPW4pV0pBCQbKmV7EAqu Z873BvBhhGWeJwbu s5mdq1rhxMo3DvZ7NJPp yyJhcHqxHBE0w0ArMh73 S26nGZqtSNQbWTRdCKTe QYLwnUswhq0bqI0j Ii8+SDNuoRA8zVE3cW3d YnHaTlE5DLzgN432PfSf nLVuLuoyU56sS0MfySB+ ICVvLrp6NRBmpHtk EN3itIJzQHppGy6mPAI2 OdZjOvJgBGvxJ5EsNRPy laqjiiovyTB0CDUmPLVk pY84Sf6pnNnyCXLb lLPUzS7tkywon6jelsaj DtTzYPCaFEm3OZg1JSZz uQwfUpWqXBI3XcG9MOY5 fUDcyE7ugHmelxdb nV4rA2FqZLIdmymuWm10 wY2ePcEkWpP3MJkiOhc+ APhHAJNASHYLMBxtIO8E LA90VN44jWVlc9F4 dNX5Q7SiTKRysdgvnmrk vKP4VCYeJNKhoW63hQWh WHnaHq5dq0G0v802DEWo RFOfnG72Km9szNlz HWZfzOXDyG5jbpevg8cm szbgStQaBHHkUCp4KRc2 ZICggGxnVqArRIP1LgD1 ECH3fWYuiN1mmRdl zcotiT7mJga+MDUvMDcv KAp2PXhydQU+PHRkIHN0 dGqfJApoXPMczU4wCIOm R3n3HmVoJwJ5JWxr U3JpZYJllsmmZa27vM0d ByUsKnY3LZeyJ0UrbmH4 KOLcpLRxFZkcFTA8F05c w8I6YVBwDJSiQRT2 bRG8tV2reKafxzjaaYMs dDsgdmVydGljYWwtYWxp I002RLIdtFrdPpSeCFfv KVMiVI08IS29sDTn l8W8mEW7U8AcPYIwcpvg agxaiRI2JZVqRHBpbO54 cNVxUOimNr9kb4D4e563 UAIwZNFgkA44Sp9s fGidFDEeaCPIvZ3iehgt u2wvohzzJgGxGSHxQQv3 QEu3NFPbaPznNmWtODM9 SaO9DTZ8pGBopF6h dDzqobgsqW8cJnb+RkVN KIsOIU89CZ82aYSit2W0 qNK1K2JhGRWpmfadtrug yVZ5GZOxHJMxeF65 fVXzBLjkSn6cl2K1k909 RJVsFPOroL27Fv1ndOvy STOhxSTOrN8xskrtr1nu cjogIzAwMDAwMDt0 CCa8WMOnyTeeOvVoVRN8 EtJ6WYY8wLTjgJ2axChp ctelbY0pIoc+G8T2A1Ls PjwvdHI+PA27OCBu UW76uMYioNElf1sykBx6 ExNfJNZvNVW7wPaeNLlk y6MyWHUpF92grWChx4Z2 IGNvbGxhcHNlOyBl rDY7qU2iKPwhgawas8vy fkxvHnlqb5emqz29xO78 T28rTCebCNBuOMWrLNNp APHshBdlff9vrC3c Ii8+VQXwxID7xNR9qW6o XxBeKqW4TPyjN440IiFx vPKsGvxga4xpz7qwxFv2 IjIwJSIgdmFsaWdu LHA1l6SqJa31X62lDOti ZHRoPSIyMCUiIHZhbGln wl7voF7sHy7+RR9vc8jk vu83cG53pOS+PHRk VZA6fNfgEKfwDBHukE0z DAliAuM6KKBmSdGdfE82 wJQzWVwjAp0zbHplyDsw LB0yRSTylvvyb025 LdAsm8gaFWWehQOuOIeo GRE8R57ma4N9UXFiNCRl ATS2kMA7gQ3urBwqonbw bGVmdDsgdmVydGlj WFeeNJoaO681EESjyDfu ByWskGKwD3umxoXCZV9t OjwvdGQ+BWXjZAI3tWpk TMctVPXjkZ7eHRDn O7p3QoNpHtZ7HFknQ8Rs stP3YKTryELeIGKzyDFC rD2ifllzb3btzbzzLgQc QPMcFDb2WFs1EIUy kWueYnHnPKA1RtF4NDD3 qGSxyM0dcVfuyitfvO6b Oyc+RklOOjwvdGQ+PHRk TTX0qUuoZQzkYBVr aN9pFGXbM8s5IhZaNfD4 LZfbW0HnufK1FMHqaFJb RNOlkKKFvC8urivor3bg cjogIzAwMDAwMDt0 PDa0JKXksHisVrOwMAO6 VjY9DDP3kGLjxA9ytUkn okhzmW9jTdb+TVJOOjwv dGQ+LRXlPKE9fNhc UXlvDRKttO9gWZJgB5i4 YcTmLpS7JUguW8IariR8 TFJksWFtSOYxgQKFfR8h ospwl5qwsfodQzMm OWWcWAv1QHx9XCSzwVyp KeRyJEB3VlZ5AOO2cPXq sP6xkIqdrfblmT6tYgr+ LTH1ASM5MR35YS35 A4FvOwzlzXMtdRB+PHRh YmxlIHdpZHRoPScxMDAl ZbCovRmtLH3gVk8nTBTb LWNvbGxhcHNlOiBj b2x (more content not included)... Normal [facility] Consenton 05-13-2023 Consent [id number] #1.00TIFF Normal [facility] Ambulatory Visit Summaryon 1 07-10-2022 Ambulatory Visit Summary CAROLINA GUTIERREZ :1960 Visit Date:05/10/2023 Ambulatory Visit Instructions Your Diagnosis Pre-op exam Right otitis media Your Care Team Attending Physician - Berry Canales Primary Care Physician - Silvestre Benavides MD This Is Your Medications List albuterol (ProAir RespiClick 90 mcg/inh inhalation powder) albuterol-ipratropiu m (DuoNeb 2.5 mg-0.5 mg/3 mL Soln-Inh) azithromycin (azithromycin 250 mg Tab) celecoxib (celecoxib 200 mg Cap) cyclobenzaprine (cyclobenzaprine 10 mg Tab) denosumab (Prolia) fluticasone nasal (Flonase 0.05 mg/inh nasal spray) fluticasone-salmeter ol (Advair Diskus 250 mcg-50 mcg inhalation powder) levothyroxine (levothyroxine 137 mcg (0.137 mg) Tab) montelukast (montelukast 10 mg Tab) ondansetron (Zofran 4 mg Tab) pantoprazole (Pantoprazole [address] Tab) semaglutide (Ozempic (1 mg dose)) upadacitinib (Rinvoq 15 mg oral tablet, extended release) Procedures Performed EGD (esophagogastroduode noscopy) gastric outlet reduction (05/21/2022), Colonoscopy (05/09/2021), EGD - Esophagogastroduoden oscopy (05/09/2021), Cataract extraction, Cholecystectomy, Foot repair, Hysterectomy, [...] future visit, Lab Collect, Pre-op exam Normal [facility] Family Medicine Office/Clini c Noteon 05-10-2023 Family Medicine Office/Clinic Note HPI Staff Carolina [...] [facility] will request those results and [...] day(s), # 6 tab(s), Refills(s) 0, Pharmacy: [facility]/pharmacy #[id number], 143.2, cm, 05/10/23 13:59:00 EST, Height/Length Dosing, [...] Dysphagia Loose stools Nausea Procedure/Surgical History EGD (esophagogastroduode noscopy) gastric outlet reduction (05/21/2022), Colonoscopy (05/09/2021), EGD - Esophagogastroduoden oscopy (05/09/2021), Cataract extraction, Cholecystectomy, Foot repair, Hysterectomy, [...] 0.05 m (more content not included)... Normal [facility] Comment on above: Result Comment: Elec tronically Signed By: Berry Canales\.br\Date and Time Signed: 05/10/23 14:55 EST Progress Note - Nurseon 05-01 Progress Note - Nurse PAT review reviewed again by Dr. Curran after talking with Dr. Dunbar, no orders received. [Electronically Signed on: 05/10/2023 13:37 EST] Jessenia Ayon RN [Verified on: 05/10/2023 13:37 EST] Jessenia Ayon RN [facility] Progress Note - Nurseon - Progress Note - Nurse Tonia from Dr. Dunbar's office calls back to confirm that Dr. Dunbar is ok with pt being on Methylprednisolone dose pack along with her use of Rinvoq. PAT returned to Dr. Curran with note to make aware. [Electronically Signed on: 05/08/2023 09:15 EST] Noemi Storm RN [Verified on: 05/08/2023 09:15 EST] Noemi Storm RN [facility] Consultation Noteon 05-07-20 Consultation Note [id number] #1.00TIFF [facility] Progress Note - Nurseon Progress Note [...] 05/07/2023 13:01 EST] Jessenia Ayon RN Normal [facility] C MRSA Screenon 05-04-2023 C MRSA Screen Negative [facility] Comment on above: Performed By: #### 1 [id number] ####[facility] (DEFAULT)[address] [place] [address] .Auto Diff 1on 05-03-2023 Auto Yates % 6 % Normal 1-12 [facility] Comment on above: Performed By: #### 7 [id number], [id number], [id number] ####[facility] (DEFAULT)[address] [place] [address] Baso Abs# 0.0 x10 Normal 0.0-0.2 [facility] Comment on above: Performed By: #### 7 [id number], [id number], [id number] ####[facility] (DEFAULT)[address] [place] [address] Basophils/100 WBC (Bld) 0.3 % Normal 0.2-2.0 [facility] Comment on above: Performed By: #### 7 [id number], [id number], [id number] ####[facility] (DEFAULT)[address] [place] [address] Eos Abs# 0.1 x10 Normal 0.0-0.4 [facility] Comment on above: Performed By: #### 7 781556, [id number], [id number] ####[facility] (DEFAULT)[address] [place] [address] Eosinophils/100 WBC (Bld) 1.2 % Normal 0.9-4.0 [facility] Comment on above: Performed By: #### 7 [id number], [id number], [id number] ####[facility] (DEFAULT)[address] [place] [address] Lymph Abs# 2.3 x10 Normal 1.3-2.9 [facility] Comment on above: Performed By: #### 7 785715, [id number], [id number] ####[facility] (DEFAULT)[address] [place] [address] Lymphocytes/100 WBC (Bld) 25 % Normal 14-48 [facility] Comment on above: Performed By: #### 7 495349, [id number], [id number] ####[facility] (DEFAULT)[address] [place] [address] Yates Abs# 0.5 x10 Normal 0.0-0.8 [facility] Comment on above: Performed By: #### 7 981287, [id number], [id number] ####[facility] (DEFAULT)[address] [place] [address] Neut Abs# 6.2 x10 Normal 1.5-9.2 [facility] Comment on above: Performed By: #### 7 805185, [id number], [id number] ####[facility] (DEFAULT)[address] [place] [address] 52619 Neutrophils/100 WBC (Bld) 68 % Normal 44-88 [facility] Comment on above: Performed By: #### 7 448232, [id number], [id number] ####[facility] (DEFAULT)[address] [place] [address] Standardon 05-03-2023 eGFR Non AA >60 Invalid Interpretation Code [facility] Comment on above: Performed By: #### 7 [id number], [id number], [id number] ####[facility] (DEFAULT)[address] [place] [address] eGFR AA >60 Invalid Interpretation Code [facility] Comment on above: Performed By: #### 7 114741, [id number], [id number] ####[facility] (DEFAULT)[address] [place] [address] 37931 Anion gap [Moles/Vol] 8.5 mmol/L Normal 5.0-19.0 [facility] Comment on above: Performed By: #### 7 891192, [id number], [id number] ####[facility] (DEFAULT)[address] [place] [address] Calcium [Mass/Vol] 8.5 mg/dL Low 8.9-10.3 [facility] Comment on above: Performed By: #### 7 777805, [id number], [id number] ####[facility] (DEFAULT)[address] [place] [address] 19163 Chloride [Moles/Vol] 104 mmol/L Normal 101-111 [facility] Comment on above: Performed By: #### 7 875039, [id number], [id number] ####[facility] (DEFAULT)[address] [place] [address] 32433 CO2 [Moles/Vol] 27 mmol/L Normal 21-32 [facility] Comment on above: Performed By: #### 7 535270, [id number], [id number] ####[facility] (DEFAULT)[address] [place] [address] 47740 Creatinine [Mass/Vol] 0.57 mg/dL Low 0.60-1.30 [facility] Comment on above: Performed By: #### 7 379704, [id number], [id number] ####[facility] (DEFAULT)[address] [place] [address] 73499 Glucose [Mass/Vol] 126.0 mg/dL High 74.0-118.0 [facility] Comment on above: Performed By: #### 7 361382, [id number], [id number] ####[facility] (DEFAULT)[address] [place] [address] 71323 Osmolality 275 mOsm/L Invalid Interpretation Code [facility] Comment on above: Performed By: #### 7 926091, [id number], [id number] ####[facility] (DEFAULT)[address] [place] [address] 13640 Potassium [Moles/Vol] 3.5 mmol/L Low 3.6-5.1 [facility] Comment on above: Performed By: #### 7 603774, [id number], [id number] ####[facility] (DEFAULT)[address] [place] [address] Sodium [Moles/Vol] 136.0 mmol/L Normal 136.0-144.0 [facility] Comment on above: Performed By: #### 7 179417, [id number], [id number] ####[facility] (DEFAULT)[address] [place] [address] Urea nitrogen [Mass/Vol] 18 mg/dL Normal 8-26 [facility] Comment on above: Performed By: #### 7 546026, [id number], [id number] ####[facility] (DEFAULT)[address] [place] [address] Urea nitrogen/Creatinine [Mass ratio] 31.5 mg/mg High 4.6-16.2 [facility] Comment on above: Performed By: #### 7 681991, [id number], [id number] ####[facility] (DEFAULT)[address] [place] [address] CBC w/ Auto Diffon 3 Erythrocyte distribution width (RBC) [Ratio] 15.6 % High 11.5-15.0 [facility] Comment on above: Performed By: #### 7 572465, [id number], [id number] #### [facility] (DEFAULT) [address] [place] [address] Hematocrit (Bld) [Volume fraction] 37.9 % Normal 33.7-40.4 [facility] Comment on above: Performed By: #### 7 396300, [id number], [id number] #### [facility] (DEFAULT) [address] [place] [address] Hemoglobin (Bld) [Mass/Vol] 12.6 g/dL Normal 11.3-15.9 [facility] Comment on above: Performed By: #### 7 589245, [id number], [id number] #### [facility] (DEFAULT) [address] [place] [address] Man Diff? Auto Invalid Interpretation Code [facility] Comment on above: Performed By: #### 7 125641, [id number], [id number] #### [facility] (DEFAULT) [address] [place] [address] 39884 MCH (RBC) [Entitic mass] 30 pg Normal 24-34 [facility] Comment on above: Performed By: #### 7 706532, [id number], [id number] #### [facility] (DEFAULT) [address] [place] [address] 41653 MCHC (RBC) [Mass/Vol] 33 g/dL Normal 26-37 [facility] Comment on above: Performed By: #### 7 179599, [id number], [id number] #### [facility] (DEFAULT) [address] [place] [address] 05687 MCV (RBC) [Entitic vol] 89 fL Normal 81-100 [facility] Comment on above: Performed By: #### 7 009525, [id number], [id number] #### [facility] (DEFAULT) [address] [place] [address] 57513 Platelet 288 x10 Normal 138-427 [facility] Comment on above: Performed By: #### 7 967804, [id number], [id number] #### [facility] (DEFAULT) [address] [place] [address] Platelet mean volume (Bld) [Entitic vol] 7.2 fL Normal 6.3-10.2 [facility] Comment on above: Performed By: #### 7 740606, [id number], [id number] #### [facility] (DEFAULT) [address] [place] [address] 24659 RBC 4.26 x10 Normal 3.70-5.30 [facility] Comment on above: Performed By: #### 7 689888, [id number], [id number] #### [facility] (DEFAULT) [address] [place] [address] 31200 WBC 9.1 x10 Normal 3.5-10.5 [facility] Comment on above: Result Comment: Slid e Reviewed Performed By: #### 7 541722, [id number], [id number] #### [facility] (DEFAULT) [address] [place] [address] UA [id number] 11-03-2023 UA Bacteria Trace [facility] Comment on above: Order Comment: Urina lysis Microscopic order added on by [employer] Expert Rules system. Performed By: #### 5 [id number], [id number] #### [facility] (DEFAULT) [address] [place] [address] 02044 UA RBC 0-2 [facility] Comment on above: Order Comment: Urina lysis Microscopic order added on by [employer] Rules system. Performed By: #### 5 [id number], [id number] #### [facility] (DEFAULT) [address] [place] [address] UA Squam Epi Few [facility] Comment on above: Order Comment: Urina lysis Microscopic order added on by [employer] Rules system. Performed By: #### 5 [id number], [id number] #### [facility] (DEFAULT) [address] [place] [address] UA WBC 0-2 [facility] Comment on above: Order Comment: Urina lysis Microscopic order added on by [employer] Rules system. Performed By: #### 5 [id number], [id number] #### [facility] (DEFAULT) [address] [place] [address] UA w Culture if Ind Standard on 05-03-2023 Breakpoint UA [facility] Comment on above: Performed By: #### 5 [id number], [id number] #### [facility] (DEFAULT) [address] [place] [address] Color (U) Yellow [facility] Comment on above: Performed By: #### 5 [id number], [id number] #### [facility] (DEFAULT) [address] [place] [address] Culture? Not Indicated Invalid Interpretation Code [facility] Comment on above: Result Comment: Resu lt created by rule GL_MAGR_ADD_UA_CULT Result created by rule GL_MAGR_ADD_UA_CULT Result created by rule GL_MAGR_ADD_UA_CULT1 Performed By: #### 5 [id number], [id number] #### [facility] (DEFAULT) [address] [place] [address] 52671 Glucose (U) [Mass/Vol] Negative Normal [facility] Comment on above: Performed By: #### 5 [id number], [id number] #### [facility] (DEFAULT) [address] [place] [address] 19364 Ketones Ql (U) Negative Normal [facility] Comment on above: Performed By: #### 5 [id number], [id number] #### [facility] (DEFAULT) [address] [place] [address] 17849 Micro? Indicated Invalid Interpretation Code [facility] Comment on above: Result Comment: Resu lt created by rule GL_MAGR_ADD_UA_MICRO Performed By: #### 5 [id number], [id number] #### [facility] (DEFAULT) [address] [place] [address] UA Bilirubin Negative Normal [facility] Comment on above: Performed By: #### 5 [id number], [id number] #### [facility] (DEFAULT) [address] [place] [address] 30115 UA Blood Negative Normal NEGATIVE [facility] Comment on above: Performed By: #### 5 [id number], [id number] #### [facility] (DEFAULT) [address] [place] [address] 37202 UA Clarity CLEAR Normal CLEAR [facility] Comment on above: Performed By: #### 5 [id number], [id number] #### [facility] (DEFAULT) [address] [place] [address] 09089 UA Leuk Est TRACE Abnormal NEGATIVE [facility] Comment on above: Performed By: #### 5 [id number], [id number] #### [facility] (DEFAULT) [address] [place] [address] 648[address] UA Nitrite Negative Normal NEGATIVE [facility] Comment on above: Performed By: #### 5 [id number], [id number] #### [facility] (DEFAULT) [address] [place] [address] 70092 UA pH 6.0 Normal 5-8 [facility] Comment on above: Performed By: #### 5 [id number], [id number] #### [facility] (DEFAULT) [address] [place] [address] UA Protein Negative Normal NEGATIVE [facility] Comment on above: Performed By: #### 5 [id number], [id number] #### [facility] (DEFAULT) [address] [place] [address] 62549 UA Spec Grav 1.010 Normal 1.001-1.035 [facility] Comment on above: Performed By: #### 5 [id number], [id number] #### [facility] (DEFAULT) [address] [place] [address] 52508 UA Urobilinogen 0.2 mg/dL Normal 0.2-1.0 [facility] Comment on above: Performed By: #### 5 [id number], [id number] #### [facility] (DEFAULT) [address] [place] [address] 21075 Urine Source Clean Catch Normal [facility] Comment on above: Performed By: #### 5 [id number], [id number] #### [facility] (DEFAULT) [address] [place] [address] 69178 Ambulatory Visit Summaryon Ambulatory Visit Summary CAROLINA GUTIERREZ :1960 Visit Date:04/23/2023 Ambulatory Visit Instructions Your Diagnosis Bilateral otitis media Chronic sinusitis BMI 40.0-44.9, adult Non-smoker Your Care Team Attending Physician - Berry Canales Primary Care Physician - Silvestre Benavides MD This Is Your Medications List albuterol (ProAir RespiClick 90 mcg/inh inhalation powder) albuterol-ipratropiu m (DuoNeb 2.5 mg-0.5 mg/3 mL Soln-Inh) celecoxib (celecoxib 200 mg Cap) cyclobenzaprine (cyclobenzaprine 10 mg Tab) denosumab (Prolia) fluticasone nasal (Flonase 0.05 mg/inh nasal spray) fluticasone-salmeter ol (Advair Diskus 250 mcg-50 mcg inhalation powder) levofloxacin (levofloxacin 750 mg Tab) levothyroxine (levothyroxine 137 mcg (0.137 mg) Tab) montelukast (montelukast 10 mg Tab) ondansetron (Zofran 4 mg Tab) pantoprazole (Pantoprazole [address] Tab) semaglutide (Ozempic (1 mg dose)) upadacitinib (Rinvoq 15 mg oral tablet, extended release) Procedures Performed EGD (esophagogastroduode noscopy) gastric outlet reduction (05/21/2022), Colonoscopy (05/09/2021), EGD - Esophagogastroduoden oscopy (05/09/2021), Cataract extraction, Cholecystectomy, Foot repair, Hysterectomy, Knee replacement, Tonsillectomy and adenoidectomy; age 12 or over. Discharge Vitals Temperature (Tympanic) 37.1 ?C Heart Rate (Peripheral) 88 Respiratory Rate 18 Blood Pressure 122/76 Height 143.2 cm Height 56 in Weight 85.95 kg Weight 189.09 lb BMI 41.91 What to do next Scheduled Follow-Up Appointments Saturday 2:00 PM EDT With: Berry Canales Where: [facility] Normal [address] [place], [place] [id number]- \.br\ Medications\.br\ What How Much When Instructions\.br\ [...] 24 hours Duration: 7 Days Pickup at [facility]/pharmacy #[id number]\.br\ Unchanged levothyroxine (levothyroxine 137 mcg (0.137 mg) [...] mg oral tablet, extended release)\.br\ Pharmacy Information\.br\ [facility]/pharmacy #[id number]: [address], [place] [id number] [phone]\.br\ Allergies\.br\ Cefzil (Unknown)\.br\ Eliquis (Unknown)\.br\ Keflex (Hives)\.br\ [...] choosing us for your care.\.br\ \.br\ [facility]/Clini c Noteon 04-23-2023 Family Medicine [...] day(s), # 7 tab(s), Refills(s) 0, Pharmacy: [facility]/pharmacy #[id number], 143.2, cm, 04/23/23 14:53:00 EDT, Height/Length Dosing, 86, kg, 04/23/23 14:53:00 EDT, Weight Dosing methylPREDNISolone, = 1 packet(s), Oral, Once, as directed on package labeling, # 21 tab(s), Refills(s) 0, Pharmacy: [facility]/pharmacy #[id number], 143.2, cm, 12/05/22 15:37:00 EDT, Height/Length Dosing, 85.3, kg, 12/05/22 15:37:00 EDT, Weight Dosing nirmatrelvir-ritonav ir, See Instructions, Oral, BID, 30 tab(s), Refill(s) [...] Dysphagia Loose stools Nausea Procedure/Surgical History EGD (esophagogastroduode noscopy) gastric outlet reduction (05/21/2022), Colonoscopy (05/09/2021), EGD - Esophagogastroduoden oscopy (05/09/2021), Cataract extraction, Cholecystectomy, Foot repair, Hysterectomy, [...] refills Luis (more content not included)... Normal [facility] Comment on above: Result Comment: Elec tronically Signed By: Berry Canales\.br\Date and Time Signed: 04/23/23 15:15 EDT Consultation Noteon 04-16-20 Consultation Note [id number] #1.00TIFF Normal [facility] RAD - MISCon 03-26-2023 RAD - MISC [id number] #1.00CD:127 Normal [facility] RAD MIS [id number]# 1.00CD:127 [facility] Ambulatory Visit Summaryon 0 03-20-2023 Ambulatory Visit Summary CAROLINA GUTIERREZ :1960 Visit Date:03/20/2023 Ambulatory Visit Instructions Your Diagnosis Exposure to COVID-19 virus Cough Nasal congestion Shortness of breath Wheezing Your Care Team Attending Physician - Berry Canales Primary Care Physician - Silvestre Benavides MD This Is Your Medications List albuterol (ProAir RespiClick 90 mcg/inh inhalation powder) albuterol-ipratropiu m (DuoNeb 2.5 mg-0.5 mg/3 mL Soln-Inh) benzonatate (benzonatate 200 mg oral capsule) celecoxib (celecoxib 200 mg Cap) cyclobenzaprine (cyclobenzaprine 10 mg Tab) denosumab (Prolia) fluticasone nasal (Flonase 0.05 mg/inh nasal spray) fluticasone-salmeter ol (Advair Diskus 250 mcg-50 mcg inhalation powder) levofloxacin (levofloxacin 750 mg Tab) levothyroxine (levothyroxine 137 mcg (0.137 mg) Tab) methylPREDNISolone (methylPREDNISolone 4 mg tab dosepak) montelukast (montelukast 10 mg Tab) nirmatrelvir-ritonav ir (Paxlovid 150 mg-100 mg oral tablet) ondansetron (Zofran 4 mg Tab) semaglutide (Ozempic (1 mg dose)) upadacitinib (Rinvoq 15 mg oral tablet, extended release) Procedures Performed EGD (esophagogastroduode noscopy) gastric outlet reduction (05/21/2022), Colonoscopy (05/09/2021), EGD - Esophagogastroduoden oscopy (05/09/2021), Cataract extraction, Cholecystectomy, Foot repair, Hysterectomy, Knee replacement, Tonsillectomy and adenoidectomy; age 11 or over. What to do next Scheduled Follow-Up Appointments Saturday 1:40 PM EDT With: Teodora Ott CNP Where: [facility] Normal [facility] Consultation Noteon 02-27-20 Consultation Note [id number]# 1.00CD:127 Normal [facility] CHEMISTRYOrdered By: SYSTEM SYSTEM on 12-05-2022 Albumin [...] [Moles/Vol] 105 mmol/L Normal 101 - 111 mmol/ L [facility] Remisol CO2 [Moles/Vol] 29 mmol/L Normal [...] mg/mg High 10 - 20 [facility] Remisol CBC AUTO DIFFon 11-20-2022 BASO # 0.0 103/ul Normal 0.0-0.1 [facility] Comment on above: Performed By: #### C BC ####[facility] [address] [place] [address]Dr. Jean Crow Basophils/100 WBC (Bld) 0.1 % Critically low 0.2-2.0 [facility] Comment on above: Performed By: #### C BC ####[facility] Trbzugzbis[address] [place] [address]Dr. Jean Crow EO # 0.0 103/ul Normal 0.0-0.7 [facility] Comment on above: Performed By: #### C BC ####[facility] Ghlucyrhdd[address] [place] [address]Dr. Jean Crow Eosinophils/100 WBC (Bld) 0.5 % Critically low 0.9-7.0 [facility] Comment on above: Performed By: #### C BC ####[facility] Agixhwbjen[address] [place], [place] [address]Dr. Jean Crow Erythrocyte distribution width (RBC) [Ratio] 14.8 % Normal 11.0-15.0 [facility] Comment on above: Performed By: #### C BC ####[facility] Njsikpvzmm[address] [place], [place] [address]Dr. Jean Crow Hematocrit (Bld) [Volume fraction] 32.7 % Critically low 36.0-48.0 [facility] Comment on above: Performed By: #### C BC ####[facility] Sivgfhmoyx[address] [place], [place] [address]Dr. Jean Crow Hemoglobin (Bld) [Mass/Vol] 10.1 g/dL Critically low 12.0-16.0 [facility] Comment on above: Performed By: #### C BC ####[facility] Prqxkgbkyr95[address] [place], [place] [address]Dr. Jean Crow IG # 0.03 10e3/ul Normal 0.00-0.03 [facility] Comment on above: Performed By: #### C BC ####[facility] Maxgybjnig7[address] [place], [place] [address]Dr. Jean Crow IG % 0.4 % Normal 0.0-0.5 [facility] Comment on above: Performed By: #### C BC ####[facility] Tkkthwhqif318[address] [place], [place] [address]DrYury Crow LYMPH # 0.8 103/ul Critically low 1.2-3.8 [facility] Comment on above: Performed By: #### C BC ####[facility] Qcqqsivjmo266[address] [place], [place] [address]Dr. Jean Crow Lymphocytes/100 WBC (Bld) 9.6 % Critically low 20.5-60.0 [facility] Comment on above: Performed By: #### C BC ####[facility] Wyxijnklfx[address] [place] [address]DrYury Crow MANUAL DIFF REQ NO Normal [facility] Comment on above: Performed By: #### C BC ####[facility] Ecdbtzriwa380[address] [place] [address]DrYury Crow MCH (RBC) [Entitic mass] 27.5 pg Normal 26.7-34.0 [facility] Comment on above: Performed By: #### C BC ####[facility] Osifzwmdua[address] [place], [place] [address]DrYury Crow MCHC (RBC) [Mass/Vol] 30.9 g/dL Normal 29.9-35.2 [facility] Comment on above: Performed By: #### C BC ####[facility] Qpjcdqlpjn45[address] [place], [place] [address]DrYury Crow MCV (RBC) [Entitic vol] 89.1 fL Normal 81.0-99.0 [facility] Comment on above: Performed By: #### C BC ####[facility] Pwplfjccts[address] [place], [place] [address]DrYury Crow MONO # 0.5 103/ul Normal 0.3-0.8 [facility] Comment on above: Performed By: #### C BC ####[facility] Jjgddnodvk455[address] [place], [place] [address]DrYury Crow Monocytes/100 WBC (Bld) 6.2 % Normal 1.7-12.0 [facility] Comment on above: Performed By: #### C BC ####[facility] Xvawhkanfb158[address] [place], [place] [address]DrYury Crow NEUT # 6.7 103/ul Critically high 1.4-6.5 [facility] Comment on above: Performed By: #### C BC ####[facility] Fjuuuxlmin068[address] [place], [place] [address]Dr. Jean Crow Neutrophils/100 WBC (Bld) 83.2 % Critically high 43.0-75.0 [facility] Comment on above: Performed By: #### C BC ####[facility] Buttmlcphr6[address] [place] [address]Dr. Jean Crow Platelet mean volume (Bld) [Entitic vol] 9.5 fL Normal 9.5-13.5 [facility] Comment on above: Performed By: #### C BC ####[facility] Jwmsujivap39[address] [place] [address]DrYury Crow PLT 222 103/ul Normal 150-450 [facility] Comment on above: Performed By: #### C BC ####[facility] Ijviacpkmv[address] [place], [place] [address]DrYury Crow RBC 3.67 106/ul Critically low 4.20-5.40 [facility] Comment on above: Performed By: #### C BC ####[facility] Hvbmrdqjqk045[address] [place], [place] [address]DrYury Crow WBC 8.0 103/ul Normal 4.0-11.0 [facility] Comment on above: Performed By: #### C BC ####[facility] Jwfgzspful197[address] [place], [place] [address]Dr. Jean Crow PROF 14(COMP METB)on 023 Albumin [Mass/Vol] 2.4 g/dL Critically low 3.4-5.0 [facility] Comment on above: Performed By: #### C MP ####[facility] F[address]enejncb7[address] [place] [address]DrYury Crow Albumin/Globulin [Mass ratio] 0.9 {ratio} Normal [facility] Comment on above: Performed By: #### C MP ####[facility] Doozluscch[address] [place], [place] [address]DrYury Crow ALP [Catalytic activity/Vol] 101 U/L Normal 46-116 [facility] Comment on above: Performed By: #### C MP ####[facility] Egxcdxvztk280[address] [place], [place] [address]Dr. Jean Crow ALT [Catalytic activity/Vol] 60 U/L Critically high 14-59 [facility] Comment on above: Performed By: #### C MP ####[facility] Gdwxorfekq78[address] [place] [address]Dr. Liliaazael Tristin Anion gap [Moles/Vol] 11.9 mmol/L Normal [facility] Comment on above: Performed By: #### C MP ####[facility] Vkakkifkmx[address] [place], [place] [address]Dr. Jean Tristin AST [Catalytic activity/Vol] 74 U/L Critically high 15-37 [facility] Comment on above: Performed By: #### C MP ####[facility] Uzljaojkoq7[address] [place], [place] [address]Dr. Jean Crow Bilirubin [Mass/Vol] 1.3 mg/dL Critically high 0.2-1.0 [facility] Comment on above: Performed By: #### C MP ####[facility] Lgoxydrujy236[address] [place], [place] [address]Dr. Jean Crow Calcium [Mass/Vol] 6.9 mg/dL Critically low 8.5-10.1 [facility] Comment on above: Performed By: #### C MP ####[facility] Pndiileetc[address] [place], [place] [address]Dr. Jean Crow Chloride [Moles/Vol] 103 mmol/L Normal 98-107 [facility] Comment on above: Performed By: #### C MP ####[facility] Qdzylmjnck832[address] [place], [place] [address]Dr. Jean Crow CO2 [Moles/Vol] 24.7 mmol/L Normal 21.0-32.0 [facility] Comment on above: Performed By: #### C MP ####[facility] Ppsbizktuj237[address] [place], [place] [address]Dr. Jean Crow Creatinine [Mass/Vol] 0.53 mg/dL Critically low 0.55-1.02 [facility] Comment on above: Performed By: #### C MP ####[facility] Jqpsxtaxyj648[address] [place], [place] [address]Dr. Jean Crow EGFR-AF QATARI >60 Normal >=60 [facility] Comment on above: Performed By: #### C MP ####[facility] [address] [place] [id number]. Jean Crow EGFR-NON AF QATARI >60 Normal >=60 [facility] Comment on above: Performed By: #### C MP ####[facility] R[address]lbdt[address] [place] [address]Dr. Jean Crow Globulin (S) [Mass/Vol] 2.6 g/dL Normal [facility] Comment on above: Performed By: #### C MP ####[facility] Ke[address]bcoqda[address] [place] [address]Dr. Jean Crow Glucose [Mass/Vol] 88 mg/dL Normal 74-106 [facility] Comment on above: Performed By: #### C MP ####[facility] Zekqyuwgrt62[address] [place] [address]Dr. Jean Corw Potassium [Moles/Vol] 3.6 mmol/L Normal 3.5-5.1 [facility] Comment on above: Performed By: #### C MP ####[facility] Sqfikmnhyl79[address] [place] [address]Dr. Jean Crow Protein [Mass/Vol] 5.0 g/dL Critically low 6.4-8.2 [facility] Comment on above: Performed By: #### C MP ####[facility] Izazwkgnft8751 [place] [address]Dr. Jean Crow Sodium [Moles/Vol] 136 mmol/L Normal 136-145 [facility] Comment on above: Performed By: #### C MP ####[facility] Pytdukwbxj6042 [place] [address]Dr. Jean Crow Urea nitrogen [Mass/Vol] 11.0 mg/dL Normal 7.0-18.0 [facility] Comment on above: Performed By: #### C MP ####[facility] Zvuwzixpmd9736 [place] [id number]. Jean Crow Urea nitrogen/Creatinine [Mass ratio] 20.8 mg/mg Normal [facility] Comment on above: Performed By: #### C MP ####[facility] Irrynlmgoe[address] [place] [address]Dr. Jean Crow BNPon 11-19-2022 Natriuretic peptide B (Bld) [Mass/Vol] 316.0 pg/mL Normal <=900.0 [facility] Comment on above: Performed By: #### C VDAGS #### [facility] [address] [place] [address] [address] Jean Crow CBC AUTO DIFFon 11-19-2022 BASO # 0.0 103/ul Normal 0.0-0.1 [facility] Comment on above: Performed By: #### C BC ####[facility] Vzjrpsmqwe[address] [place], [place] [address]DrYury Crow Basophils/100 WBC (Bld) 0.2 % Normal 0.2-2.0 [facility] Comment on above: Performed By: #### C BC ####[facility] Gvemfdttix104[address] [place], [place] [address]DrYury Crow EO # 0.1 103/ul Normal 0.0-0.7 [facility] Comment on above: Performed By: #### C BC ####[facility] Qrjqrynfwl1259[address] [place], [place] [address]Dr. Jean Crow Eosinophils/100 WBC (Bld) 1.0 % Normal 0.9-7.0 [facility] Comment on above: Performed By: #### C BC ####[facility] Xapqrmqkwc969[address] [place], [place] [address]DrYury Crow Erythrocyte distribution width (RBC) [Ratio] 14.9 % Normal 11.0-15.0 [facility] Comment on above: Performed By: #### C BC ####[facility] Hlfvrolpow57[address] [place], [place] [address]DrYury Crow Hematocrit (Bld) [Volume fraction] 40.7 % Normal 36.0-48.0 [facility] Comment on above: Performed By: #### C BC ####[facility] Pcdzmpjpab[address] [place], [place] [id number]. Jean Crow Hemoglobin (Bld) [Mass/Vol] 12.7 g/dL Normal 12.0-16.0 [facility] Comment on above: Performed By: #### C BC ####[facility] Shszflxfem[address] [place] [address]Dr. Jean Crow IG # 0.03 10e3/ul Normal 0.00-0.03 [facility] Comment on above: Performed By: #### C BC ####[facility] Cwncbldauk495[address] [place] [address]Dr. Jean Tristin IG % 0.3 % Normal 0.0-0.5 [facility] Comment on above: Performed By: #### C BC ####[facility] Lskpjleajg26[address] [place] [address]Dr. Liliaazael Tristin LYMPH # 0.8 103/ul Critically low 1.2-3.8 [facility] Comment on above: Performed By: #### C BC ####[facility] Yfaewyogbf04[address] [place] [address]Dr. Liliaazael Crow Lymphocytes/100 WBC (Bld) 6.7 % Critically low 20.5-60.0 [facility] Comment on above: Performed By: #### C BC ####[facility] Zkpgbayacq24[address] [place] [address]Dr. Jean Tristin MANUAL DIFF REQ NO Normal [facility] Comment on above: Performed By: #### C BC ####[facility] Hnhtrsfevp29[address] [place] [address]Dr. Jean Tristin MCH (RBC) [Entitic mass] 28.0 pg Normal 26.7-34.0 [facility] Comment on above: Performed By: #### C BC ####[facility] Sgipatqvre[address] [place], [place] [address]Dr. Jean Tristin MCHC (RBC) [Mass/Vol] 31.2 g/dL Normal 29.9-35.2 [facility] Comment on above: Performed By: #### C BC ####[facility] Canhzsgpzh[address] [place], [place] [address]Dr. Jean Crow MCV (RBC) [Entitic vol] 89.6 fL Normal 81.0-99.0 [facility] Comment on above: Performed By: #### C BC ####[facility] Hqsfqbzgpr5473 [place] [id number]. Jean Crow MONO # 0.7 103/ul Normal 0.3-0.8 [facility] Comment on above: Performed By: #### C BC ####[facility] Yrjveqnzur7760 [place] [address]Dr. Jean Tristin Monocytes/100 WBC (Bld) 5.8 % Normal 1.7-12.0 [facility] Comment on above: Performed By: #### C BC ####[facility] Drwmcozmgu6157 [place] [address]Dr. Jean Crow NEUT # 9.8 103/ul Critically high 1.4-6.5 [facility] Comment on above: Performed By: #### C BC ####[facility] Zjgisgveib4486 [place] [address]Dr. Jean Tristin Neutrophils/100 WBC (Bld) 86.0 % Critically high 43.0-75.0 [facility] Comment on above: Performed By: #### C BC ####[facility] Nnakifzdbe25[address] [place] [address]Dr. Jean Tristin Platelet mean volume (Bld) [Entitic vol] 9.3 fL Critically low 9.5-13.5 [facility] Comment on above: Performed By: #### C BC ####[facility] Ausnhqngff70[address] [place] [address]Dr. Jean Tristin PLT 283 103/ul Normal 150-450 [facility] Comment on above: Performed By: #### C BC ####[facility] Whqrtsjqms87[address] [place] [id number]. Jean Crow RBC 4.54 106/ul Normal 4.20-5.40 [facility] Comment on above: Performed By: #### C BC ####[facility] Kbwpnusdfu[address] [place], [place] [id number] Crow WBC 11.4 103/ul Critically high 4.0-11.0 [facility] Comment on above: Performed By: #### C ####[facility] Hghjohihrs1494 [place], [place] [address] ABD/PELV W CONon 11-20-19 23 [...] LISA BAÑUELOS Date: 2022-11-19 15:16 Normal [facility] Covid-19 PCR (CVDTB)on 10-30 SARS-CoV-2 (COVID-19) RNA BRIAN+probe Ql (Unsp spec) Not detected Normal NOT DETECTED [facility] Comment on above: Performed By: #### C VDTB ####[facility] J[address]xy[address]quw[address] [place] [address]Dr. Liliaazael Crow GI PANEL (PCR)on 11-19-2022 Adenovirus F 40/41 Not detected Normal NOT DETECTED [facility] Comment on above: Performed By: #### G IPANEL ####[facility] Lvvejmaatz[address] [place] [address]Dr. Jean Crow Astrovirus Not detected Normal NOT DETECTED [facility] Comment on above: Performed By: #### G IPANEL ####[facility] Aviqbdpntw327[address] [place], [place] [address]Dr. Jean Crow C. Diff toxin A/B Not detected Normal NOT DETECTED [facility] Comment on above: Performed By: #### G IPANEL ####[facility] Uvknesnsmv25[address] [place], [place] [address]Dr. Jean Crow Campylobacter Not detected Normal NOT DETECTED [facility] Comment on above: Performed By: #### G IPANEL ####[facility] Yfkdggiycz85[address] [place], [place] [address]Dr. Jean Crow Cryptosporidium Not detected Normal NOT DETECTED [facility] Comment on above: Performed By: #### G IPANEL ####[facility] Vbdbpfelnz046[address] [place], [place] [address]Dr. Jean Crow Cyclos. Cayetanensis Not detected Normal NOT DETECTED [facility] Comment on above: Performed By: #### G IPANEL ####[facility] Pmlzyqbkgh380[address] [place], [place] [address]Dr. Jean Crow E. Coli O157 Not Applicable Normal Not Applicable [facility] Comment on above: Performed By: #### G IPANEL ####[facility] Euwczqgymo17[address] [place], [place] [address]Dr. Jean Crow E. histolytica Not detected Normal NOT DETECTED The [facility] Comment on above: Performed By: #### G IPANEL ####[facility] Fheevdlehg412[address] [place], [place] [address]Dr. Jean Crow EAEC Not detected Normal NOT DETECTED [facility] Comment on above: Performed By: #### G IPANEL ####[facility] Stjcmiaqpu87[address] [place] [id number]. Jean Crow EIEC Not detected Normal NOT DETECTED [facility] Comment on above: Performed By: #### G IPANEL ####[facility] Vzcpygwxla376[address] [place], [place] [address]Dr. Jean Crow EPEC Not detected Normal NOT DETECTED [facility] Comment on above: Performed By: #### G IPANEL ####[facility] Xeeoinpurc[address] [place], [place] [address]Dr. Jean Crow ETEC Not detected Normal NOT DETECTED [facility] Comment on above: Performed By: #### G IPANEL ####[facility] Fabyraulqh[address] [place], [place] [address]Dr. Jean Crow G. Lamblia Not detected Normal NOT DETECTED [facility] Comment on above: Performed By: #### G IPANEL ####[facility] Tpcxltjnzr69[address] [place], [place] [address]Dr. Jean Crow GIPABRAZO ARROWHEAD CAMPUSL CONTROLS PASSED Normal [facility] Comment on above: Performed By: #### G IPANEL ####[facility] Izjxaawath[address] [place], [place] [address]Dr. Jean [facility] JEANNE HEADER GI PANEL BACTERIA Normal [facility] Comment on above: Performed By: #### G IPANEL ####[facility] Hbfdytynaz[address] [place], [place] [address]Dr. Jean [facility] EC[facility] PANEL DIARRHEAGENIC E.COLI / SHIGELLA Normal [facility] Comment on above: Performed By: #### G IPANEL ####[facility] Drgzsdiksq303[address] [place], [place] [address]Dr. Jean [facility] GIPNLHD INFO SEE BELOW Normal [facility] Comment on above: Result Comment: EAEC - Enteroaggregative E. Coli EPEC- Enteropathogenic E. Coli ETEC- Enterotoxigenic E. Coli lt/st STEC- Shigella-like toxin-producing E. Coli stx1/stx2 EIEC- Shigella/Enteroinvasive E. Coli Performed By: #### G IPANEL ####[facility] Kpqpybcbas[address] [place], [place] [address]Dr. Jean Crow GIPNLHD PARASITES GI PANEL PARASITES Normal [facility] Comment on above: Performed By: #### G IPANEL ####[facility] Nrxecnqcym289[address] [place], [place] [address]Dr. Jean Crow GIPNLHD VIRUS GI PANEL VIRUSES Normal [facility] Comment on above: Performed By: #### G IPANEL ####[facility] Yfizwpikuo95[address] [place], [place] [address]Dr. Liliaazael Crow Norovirus GI/GII Not detected Normal NOT DETECTED [facility] Comment on above: Performed By: #### G IPANEL ####[facility] Lhwuhgswkp13[address] [place], [place] [address]Dr. Jean Crow P. Shigelloides Not detected Normal NOT DETECTED [facility] Comment on above: Performed By: #### G IPANEL ####[facility] Rnivgkzasd[address] [place], [place] [address]Dr. Jean Crow Rotavirus A Not detected Normal NOT DETECTED [facility] Comment on above: Performed By: #### G IPANEL ####[facility] Vxjdadbwfw[address] [place], [place] [address]Dr. Jean Crow Salmonella Not detected Normal NOT DETECTED [facility] Comment on above: Performed By: #### G IPANEL ####[facility] Ywplgyzjzq034[address] [place], [place] [address]Dr. Jean Crow Sapovirus Not detected Normal NOT DETECTED [facility] Comment on above: Performed By: #### G IPANEL ####[facility] Rqbopvtiqx7[address] [place], [place] [address]Dr. Jean Crow STEC Not detected Normal NOT DETECTED [facility] Comment on above: Performed By: #### G IPANEL ####[facility] Nbdfeoaptc[address] [place], [place] [address]Dr. Jean Crow Vibrio Not detected Normal NOT DETECTED [facility] Comment on above: Performed By: #### G IPANEL ####[facility] Mufgvsucea[address] [place], [place] [address]Dr. Jean Crow Vibrio Cholera Not detected Normal NOT DETECTED [facility] Comment on above: Performed By: #### G IPANEL ####[facility] [id number] [place] [address]DrYury Crow Y. Enterocolitica Not detected Normal NOT DETECTED [facility] Comment on above: Performed By: #### G IPANEL ####[facility] [address] [place] [address]DrYury Crow LACTATE/LACTIC ACIDon 2022 Lactate [Moles/Vol] 0.6 mmol/L Normal 0.4-2.0 [facility] Comment on above: Performed By: #### L ACT #### [facility] [address] [place] [address] Dr. Jean Crow LIPASEon 11-19-2022 Lipase [Catalytic activity/Vol] 73.0 U/L Normal 73.0-393.0 [facility] Comment on above: Performed By: #### C VDAGS #### [facility] [address] [address] [address] Jean Crow MAGNESIUMon 11-19-2022 Magnesium [Mass/Vol] 1.7 mg/dL Critically low 1.8-2.4 [facility] Comment on above: Performed By: #### M G ####[facility] [address] [place], [place] [address]DrYury Crow POINT OF CARE GLUCOSEon 10-30 Glucose [Mass/Vol] 96 mg/dL Normal 74-106 [facility] Comment on above: Performed By: #### P OCGLUC ####[facility] [address] [address]DrYury Crow PROF 14(COMP METB)on 023 Albumin [Mass/Vol] 3.2 g/dL Critically low 3.4-5.0 [facility] Comment on above: Performed By: #### C VDAGS #### [facility] [address] [place] [address] Dr. Jean Crow Albumin/Globulin [Mass ratio] 1.0 {ratio} Normal [facility] Comment on above: Performed By: #### C VDAGS #### [facility] [address] [address] [address] Jean Crow ALP [Catalytic activity/Vol] 88 U/L Normal 46-116 [facility] Comment on above: Performed By: #### C VDAGS #### [facility] [address] [address] [address] Jean Crow ALT [Catalytic activity/Vol] 41 U/L Normal 14-59 [facility] Comment on above: Performed By: #### C VDAGS #### [facility] [address] [address] [address] Jean Crow Anion gap [Moles/Vol] 11.8 mmol/L Normal [facility] Comment on above: Performed By: #### C VDAGS #### [facility] [address] [address] [address] Jean Crow AST [Catalytic activity/Vol] 78 U/L Critically high 15-37 [facility] Comment on above: Performed By: #### C VDAGS #### [facility] [address] [address] [address] Jean Crow Bilirubin [Mass/Vol] 1.0 mg/dL Normal 0.2-1.0 [facility] Comment on above: Performed By: #### C VDAGS #### [facility] [address] [address] [address] Jean Crow Calcium [Mass/Vol] 8.1 mg/dL Critically low 8.5-10.1 [facility] Comment on above: Performed By: #### C VDAGS #### [facility] [address] [address] [address] Jean Crow Chloride [Moles/Vol] 106 mmol/L Normal 98-107 [facility] Comment on above: Performed By: #### C VDAGS #### [facility] [address] [address] [address] Jean Crow CO2 [Moles/Vol] 29.0 mmol/L Normal 21.0-32.0 [facility] Comment on above: Performed By: #### C VDAGS #### [facility] [address] [address] [address] Jean Crow Creatinine [Mass/Vol] 0.77 mg/dL Normal 0.55-1.02 [facility] Comment on above: Performed By: #### C VDAGS #### [facility] [address] [address] [address] Jean Crow EGFR-AF QATARI >60 Normal >=60 [facility] Comment on above: Performed By: #### C VDAGS #### [facility] [address] [address] [address] Jean Crow EGFR-NON AF QATARI >60 Normal >=60 [facility] Comment on above: Performed By: #### C VDAGS #### [facility] [address] [place] [address] Dr. Jean Crow Globulin (S) [Mass/Vol] 3.1 g/dL Normal [facility] Comment on above: Performed By: #### C VDAGS #### [facility] [address] [address] [address] Jean Crow Glucose [Mass/Vol] 93 mg/dL Normal 74-106 [facility] Comment on above: Performed By: #### C VDAGS #### [facility] [address] [place] [address] Dr. Jean Crow Potassium [Moles/Vol] 3.8 mmol/L Normal 3.5-5.1 [facility] Comment on above: Performed By: #### C VDAGS #### [facility] [address] [address] [address] Jean Crow Protein [Mass/Vol] 6.3 g/dL Critically low 6.4-8.2 [facility] Comment on above: Performed By: #### C VDAGS #### [facility] [address] [place] [address] Dr. Jean Crow Sodium [Moles/Vol] 143 mmol/L Normal 136-145 [facility] Comment on above: Performed By: #### C VDAGS #### [facility] [address] [place] [address] Dr. Jean Crow Urea nitrogen [Mass/Vol] 18.0 mg/dL Normal 7.0-18.0 [facility] Comment on above: Performed By: #### C VDAGS #### [facility] [address] [place] [address] Dr. Jean Crow Urea nitrogen/Creatinine [Mass ratio] 23.4 mg/mg Normal [facility] Comment on above: Performed By: #### C VDAGS #### [facility] [address] [place] [address] Dr. Jean Crow PROTIMEon 11-19-2022 INR Coag (PPP) [Relative time] 0.96 {INR} Normal [facility] Comment on above: Performed By: #### C VDAGS #### [facility] [address] [place] [address] Dr. Jean Crow INR GUIDELINES SEE BELOW Normal [facility] Comment on above: Result Comment: ANMOL RED INR: 2.0 - 3.0 CONDITIONS NOT LISTED BELOW 2.5 - 3.5 FOR PROSTHETIC HEART VALVE REPLACEMENT 2.5 - 3.5 RECURRENT THROMBOSIS Performed By: #### C VDAGS #### [facility] [address] [place] [address] Dr. Jean Crow PT Coag (PPP) [Time] 10.2 s Normal 9.0-11.6 [facility] Comment on above: Performed By: #### C VDAGS #### [facility] [address] [place] [address] Dr. Jean Crow SYMPTOMATIC COVID-19 ANTIGEN on 11-19-2022 EUA Statement SEE BELOW Normal [facility] Comment on above: Result Comment: This test [...] sooner. Performed By: #### C VDAGS #### [facility] [address] [place] [address] Dr. Jean Crow SARS-CoV-2 (COVID-19) RNA BRIAN+probe Ql (Unsp spec) Negative Normal NEGATIVE [facility] Comment on above: Performed By: #### C VDAGS #### [facility] [address] [place] [address] Dr. Jean Crow TROPONIN, HIGH SENSITIVITYon 11-19-2022 HSTROP 49.8 pg/mL Normal 4.0-51.3 [facility] Comment on above: Result Comment: CUT- OFF POINTS HAVE BEEN ESTABLISHED BASED ON THE FOURTH UNIVERSAL DEFINITIONS OF MYOCARDIAL INFARCTION. THE UPPER REFERENCE LIMIT (URL) OF TROPONIN, DEFINED THE 99TH PERCENTILE OF cTnI DISTRIBUTION IN A REFERENCE POPULATION, HAS BEEN CONFIRMED THE DECISION THRESHOLD FOR [place] DIAGNOSIS. Performed By: #### H STROPN #### [facility] [address] [place] [address] Dr. Jean Crow HSTROP 55.9 pg/mL Critically high 4.0-51.3 [facility] Comment on above: Result Comment: CUT- OFF POINTS HAVE BEEN ESTABLISHED BASED ON THE FOURTH UNIVERSAL DEFINITIONS OF MYOCARDIAL INFARCTION. THE UPPER REFERENCE LIMIT (URL) OF TROPONIN, DEFINED THE 99TH PERCENTILE OF cTnI DISTRIBUTION IN A REFERENCE POPULATION, HAS BEEN CONFIRMED THE DECISION THRESHOLD FOR [place] DIAGNOSIS. Performed By: #### C VDAGS #### [facility] [address] [place] [address] Dr. Jean Crow LIPID PROFILEon 2022 CHOL-HDL RATIO NORM SEE BELOW Normal [facility] Comment on above: Result Comment: 3.3 - 4.4 LOW RISK 4.4 - 7.1 AVERAGE RISK 7.1 - 11.0 MODERATE RISK >11.0 HIGH RISK Performed By: #### C VDAGS #### [facility] [address] [address] [address] Jean Crow Cholesterol [Mass/Vol] 214 mg/dL Critically high <=200 [facility] Comment on above: Performed By: #### C VDAGS #### [facility] [address] [address] [address] Jean Crow Cholesterol in HDL [Mass/Vol] 61 mg/dL Critically high 40-60 [facility] Comment on above: Performed By: #### C VDAGS #### [facility] [address] [address] [address] Jean Crow Cholesterol in LDL [Mass/Vol] 143.0 mg/dL Normal [facility] Comment on above: Performed By: #### C VDAGS #### [facility] [address] [place] [address] Dr. Jean Crow Cholesterol.total/Ch olesterol in HDL [Mass ratio] 3.5 {ratio} Normal [facility] Comment on above: Performed By: #### C VDAGS #### [facility] [address] [address] [address] Jean Crow HDL NORMAL > or = 60 mg/dl - LOW CARDIOVASCULAR RISK <40 mg/dl - HIGH CARDIOVASCULAR RISK Normal [facility] Comment on above: Performed By: #### C VDAGS #### [facility] [address] [place] [address] Dr. Jean Crow LDL CALC NORMAL SEE BELOW Normal [facility] Comment on above: Result Comment: <100 mg/dl OPTIMAL 100 - 129 mg/dl NEAR OR ABOVE OPTIMAL 130 - 159 mg/dl BORDERLINE HIGH 160 - 189 mg/dl HIGH >190 mg/dl VERY HIGH Performed By: #### C VDAGS #### [facility] [address] [address] [address] Jean Crow Triglyceride [Mass/Vol] 50 mg/dL Normal <=150 [facility] Comment on above: Performed By: #### C VDAGS #### [facility] [address] [place] [address] Dr. Jean Crow VLDL CALC 10.0 mg/dL Normal [facility] Comment on above: Performed By: #### C VDAGS #### [facility] [address] [place] [address] Dr. Jean Crow MICROALB CREAT RATIO RANDOMo n 2022 mALB <1.3 Normal <=30.0 [facility] Comment on above: Performed By: #### C VDAGS #### [facility] [address] [place] [address] Dr. Jean Crow URINE CREAT 201.49 mg/dL Normal 20.00-300.00 [facility] Comment on above: Performed By: #### C VDAGS #### [facility] [address] [place] [address] Dr. Jean Crow PROF 14(COMP METB)on 023 Albumin [Mass/Vol] 3.5 g/dL Normal 3.4-5.0 [facility] Comment on above: Performed By: #### C VDAGS #### [facility] [address] [place] [address] Dr. Jean Crow Albumin/Globulin [Mass ratio] 1.0 {ratio} Normal [facility] Comment on above: Performed By: #### C VDAGS #### [facility] [address] [place] [address] Dr. Jean Crow ALP [Catalytic activity/Vol] 61 U/L Normal 46-116 [facility] Comment on above: Performed By: #### C VDAGS #### [facility] [address] [place] [address] Dr. Jean Crow ALT [Catalytic activity/Vol] 37 U/L Normal 14-59 [facility] Comment on above: Performed By: #### C VDAGS #### [facility] [address] [place] [address] Dr. Jean Crow Anion gap [Moles/Vol] 11.6 mmol/L Normal [facility] Comment on above: Performed By: #### C VDAGS #### [facility] [address] [place] [address] Dr. Jean Crow AST [Catalytic activity/Vol] 18 U/L Normal 15-37 [facility] Comment on above: Performed By: #### C VDAGS #### [facility] [address] [place] [address] Dr. Jean Crow Bilirubin [Mass/Vol] 0.5 mg/dL Normal 0.2-1.0 [facility] Comment on above: Performed By: #### C VDAGS #### [facility] [address] [place] [address] Dr. Jean Crow Calcium [Mass/Vol] 8.7 mg/dL Normal 8.5-10.1 [facility] Comment on above: Performed By: #### C VDAGS #### [facility] [address] [place] [address] Dr. Jean Crow Chloride [Moles/Vol] 107 mmol/L Normal 98-107 [facility] Comment on above: Performed By: #### C VDAGS #### [facility] [address] [place] [address] Dr. Jean Crow CO2 [Moles/Vol] 28.9 mmol/L Normal 21.0-32.0 [facility] Comment on above: Performed By: #### C VDAGS #### [facility] [address] [place] [address] Dr. Jean Crow Creatinine [Mass/Vol] 0.61 mg/dL Normal 0.55-1.02 [facility] Comment on above: Performed By: #### C VDAGS #### [facility] [address] [place] [address] Dr. Jean Crow EGFR-AF QATARI >60 Normal >=60 [facility] Comment on above: Performed By: #### C VDAGS #### [facility] [address] [place] [address] Dr. Jean Crow EGFR-NON AF QATARI >60 Normal >=60 [facility] Comment on above: Performed By: #### C VDAGS #### [facility] [address] [place] [address] Dr. Jean Crow Globulin (S) [Mass/Vol] 3.4 g/dL Normal [facility] Comment on above: Performed By: #### C VDAGS #### [facility] [address] [place] [address] Dr. Jean Crow Glucose [Mass/Vol] 105 mg/dL Normal 74-106 [facility] Comment on above: Performed By: #### C VDAGS #### [facility] [address] [place] [address] Dr. Jean Crow Potassium [Moles/Vol] 3.5 mmol/L Normal 3.5-5.1 [facility] Comment on above: Performed By: #### C VDAGS #### [facility] [address] [place] [address] Dr. Jean Crow Protein [Mass/Vol] 6.9 g/dL Normal 6.4-8.2 [facility] Comment on above: Performed By: #### C VDAGS #### [facility] [address] [place] [address] Dr. Jean Crow Sodium [Moles/Vol] 144 mmol/L Normal 136-145 [facility] Comment on above: Performed By: #### C VDAGS #### [facility] [address] [place] [address] Dr. Jean Crow Urea nitrogen [Mass/Vol] 18.0 mg/dL Normal 7.0-18.0 [facility] Comment on above: Performed By: #### C VDAGS #### [facility] [address] [place] [address] Dr. Jean Crow Urea nitrogen/Creatinine [Mass ratio] 29.5 mg/mg Normal [facility] Comment on above: Performed By: #### C VDAGS #### [facility] [address] [place] [address] Dr. Jean Crow IMMUNOGLOBULIN E, TOTALon Immunoglobulin E, Total 25 IU/mL Normal 6-495 [facility] Comment on above: Performed By: #### I GETOT ####[facility] [address] [address]Dr. Jean Crow ASPERGILLUS AB, QUANTITATIVE DIDon 11-03-2022 Aspergillus flavus Negative Normal Neg:<1:1 [facility] Comment on above: Performed By: #### A SPDID ####[facility] [address] [id number] Jean Crow Aspergillus fumigatus Negative Normal Neg:<1:1 [facility] Comment on above: Performed By: #### A SPDID ####[facility] [address] [address]Dr. Jean Crow Aspergillus niger Negative Normal Neg:<1:1 [facility] Comment on above: Performed By: #### A SPDID ####[facility] [address] [address]Dr. Jean Crow ANCA (ANTINEUTROPHIL CYTOPLA MSMIC ABon 11-01-2022 Atypical pANCA <1:20 Normal Neg:<1:20 [facility] Comment on above: Result Comment: The atypical pANCA pattern has been observed in a significant percentage of patients with ulcerative colitis, primary sclerosing cholangitis and autoimmune hepatitis. Performed By: #### A NCAA ####[facility] [address] [address]Dr. Jean Crow Cytoplasmic (C-ANCA) <1:20 Normal Neg:<1:20 [facility] Comment on above: Performed By: #### A NCAA ####[facility] [address] [address]Dr. Jean Crow Perinuclear (P-ANCA) <1:20 Normal Neg:<1:20 [facility] Comment on above: Result Comment: The presence of positive fluorescence exhibiting P-ANCA or C-ANCA patterns alone is not specific for the diagnosis of Abiodun's Granulomatosis (WG) or microscopic polyangiitis. Decisions about treatment should not be based solely on ANCA IFA results. The International ANCA [employer] Consensus recommends follow up testing of positive sera with both ND-3 and MPO-ANCA enzyme immunoassays. As many as 5% serum samples are positive only by EIA. Ref. AM J Clin Pathol 1999;111:507-513. Performed By: #### A NCAA ####[facility] [address] [place], [place] [address]ZwDr. Jean Crow CBC AUTO DIFFon 10-30-2022 BASO # 0.0 103/ul Normal 0.0-0.1 [facility] Comment on above: Performed By: #### C BC #### [facility] [address] [address] [address] Jean Crow Basophils/100 WBC (Bld) 0.3 % Normal 0.2-2.0 [facility] Comment on above: Performed By: #### C BC #### [facility] [address] [address] [address] Jean Crow EO # 0.1 103/ul Normal 0.0-0.7 [facility] Comment on above: Performed By: #### C BC #### [facility] [address] [address] [address] Jean Crow Eosinophils/100 WBC (Bld) 1.0 % Normal 0.9-7.0 [facility] Comment on above: Performed By: #### C BC #### [facility] [address] [address] [address] Jean Crow Erythrocyte distribution width (RBC) [Ratio] 15.3 % Critically high 11.0-15.0 [facility] Comment on above: Performed By: #### C BC #### [facility] [address] [address] [address] Jean Crow Hematocrit (Bld) [Volume fraction] 38.5 % Normal 36.0-48.0 [facility] Comment on above: Performed By: #### C BC #### [facility] [address] [address] [address] Jean Crow Hemoglobin (Bld) [Mass/Vol] 12.2 g/dL Normal 12.0-16.0 [facility] Comment on above: Performed By: #### C BC #### [facility] [address] [address] [address] Jean Crow IG # 0.08 10e3/ul Critically high 0.00-0.03 [facility] Comment on above: Performed By: #### C BC #### [facility] [address] [place] [address] Dr. Jean Crow IG % 1.0 % Critically high 0.0-0.5 [facility] Comment on above: Performed By: #### C BC #### [facility] [address] [place] [address] Dr. Jean Crow LYMPH # 2.3 103/ul Normal 1.2-3.8 [facility] Comment on above: Performed By: #### C BC #### [facility] [address] [place] [address] Dr. Jean Crow Lymphocytes/100 WBC (Bld) 28.6 % Normal 20.5-60.0 [facility] Comment on above: Performed By: #### C BC #### [facility] [address] [place] [address] Dr. Jean Crow MANUAL DIFF REQ NO Normal [facility] Comment on above: Performed By: #### C BC #### [facility] [address] [place] [address] Dr. Jean Crow MCH (RBC) [Entitic mass] 28.2 pg Normal 26.7-34.0 [facility] Comment on above: Performed By: #### C BC #### [facility] [address] [place] [address] Dr. Jaen Crow MCHC (RBC) [Mass/Vol] 31.7 g/dL Normal 29.9-35.2 [facility] Comment on above: Performed By: #### C BC #### [facility] [address] [place] [address] Dr. Jean Crow MCV (RBC) [Entitic vol] 89.1 fL Normal 81.0-99.0 [facility] Comment on above: Performed By: #### C BC #### [facility] [address] [place] [address] Dr. Jean Crow MONO # 0.6 103/ul Normal 0.3-0.8 [facility] Comment on above: Performed By: #### C BC #### [facility] [address] [place] [address] Dr. Jean Crow Monocytes/100 WBC (Bld) 7.2 % Normal 1.7-12.0 [facility] Comment on above: Performed By: #### C BC #### [facility] [address] [place] [address] Dr. Jean Crow NEUT # 4.9 103/ul Normal 1.4-6.5 [facility] Comment on above: Performed By: #### C BC #### [facility] [address] [place] [address] Dr. Jean Crow Neutrophils/100 WBC (Bld) 61.9 % Normal 43.0-75.0 [facility] Comment on above: Performed By: #### C BC #### [facility] [address] [place] [address] Dr. Jean Crow Platelet mean volume (Bld) [Entitic vol] 8.6 fL Critically low 9.5-13.5 [facility] Comment on above: Performed By: #### C BC #### [facility] [address] [place] [address] Dr. Jean Crow PLT 304 103/ul Normal 150-450 [facility] Comment on above: Performed By: #### C BC #### [facility] [address] [place] [address] Dr. Jean Crow RBC 4.32 106/ul Normal 4.20-5.40 [facility] Comment on above: Performed By: #### C BC #### [facility] [address] [place] [address] Dr. Jean Crow WBC 7.9 103/ul Normal 4.0-11.0 [facility] Comment on above: Performed By: #### C BC #### [facility] [address] [place] [address] Dr. Jean Crow Urinalysis - AUTOMATEDon Appearance (U) cloudy [employer] Other Bilirubin Ql (U) Negative [employer] Other Color (U) orange [employer] Other Glucose Ql (U) 100 [employer] Other Hemoglobin Ql (U) Negative [employer] Other Ketones Ql (U) Negative [employer] Other Leukocyte esterase Test strip Ql (U) large [employer] Other Nitrite Ql (U) Positive [employer] Other pH (U) 5.0 [pH] [employer] Other Protein Ql (U) 30 [employer] Other Specific gravity (U) [Rel density] 1.010 [employer] Other Urobilinogen (U) [Mass/Vol] 1.0 mg/dL [employer] Other Urinalysis - AUTOMATED [employer] Other Urine Cultureon 10-05-2022 Bacteria identified Cx Nom (U) [employer] Other Urine culture routineOrdered By: Naomie Berry on 10-05-2022 Bacteria identified Cx Nom (U) 2 Days [facility] CBC AUTO DIFFon 09-16-2022 BASO # 0.0 103/ul Normal 0.0-0.1 [facility] Comment on above: Performed By: #### C VDAGS #### [facility] [address] [address] [address] Jean Crow Basophils/100 WBC (Bld) 0.2 % Normal 0.2-2.0 [facility] Comment on above: Performed By: #### C VDAGS #### [facility] [address] [place] [address] Dr. Jean Crow EO # 0.0 103/ul Normal 0.0-0.7 [facility] Comment on above: Performed By: #### C VDAGS #### [facility] [address] [place] [address] Dr. Jean Crow Eosinophils/100 WBC (Bld) 0.0 % Critically low 0.9-7.0 [facility] Comment on above: Performed By: #### C VDAGS #### [facility] [address] [place] [address] Dr. Jean Crow Erythrocyte distribution width (RBC) [Ratio] 16.3 % Critically high 11.0-15.0 [facility] Comment on above: Performed By: #### C VDAGS #### [facility] [address] [place] [address] Dr. Jean Crow Hematocrit (Bld) [Volume fraction] 37.4 % Normal 36.0-48.0 [facility] Comment on above: Performed By: #### C VDAGS #### [facility] [address] [place] [address] Dr. Jean Crow Hemoglobin (Bld) [Mass/Vol] 12.0 g/dL Normal 12.0-16.0 [facility] Comment on above: Performed By: #### C VDAGS #### [facility] [address] [place] [address] Dr. Jean Crow IG # 0.30 10e3/ul Critically high 0.00-0.03 [facility] Comment on above: Performed By: #### C VDAGS #### [facility] [address] [place] [address] Dr. Jean Crow IG % 2.3 % Critically high 0.0-0.5 [facility] Comment on above: Performed By: #### C VDAGS #### [facility] [address] [place] [address] Dr. Jean Crow LYMPH # 0.8 103/ul Critically low 1.2-3.8 [facility] Comment on above: Performed By: #### C VDAGS #### [facility] [address] [place] [address] Dr. Jean Crow Lymphocytes/100 WBC (Bld) 6.0 % Critically low 20.5-60.0 [facility] Comment on above: Performed By: #### C VDAGS #### [facility] [address] [place] [address] Dr. Jena Crow MANUAL DIFF REQ NO Normal [facility] Comment on above: Performed By: #### C VDAGS #### [facility] [address] [place] [address] Dr. Jean Crow MCH (RBC) [Entitic mass] 27.6 pg Normal 26.7-34.0 [facility] Comment on above: Performed By: #### C VDAGS #### [facility] [address] [place] [address] Dr. Jean Crow MCHC (RBC) [Mass/Vol] 32.1 g/dL Normal 29.9-35.2 [facility] Comment on above: Performed By: #### C VDAGS #### [facility] [address] [place] [address] Dr. Jean Crow MCV (RBC) [Entitic vol] 86.0 fL Normal 81.0-99.0 [facility] Comment on above: Performed By: #### C VDAGS #### [facility] [address] [place] [address] Dr. Jean Crow MONO # 0.1 103/ul Critically low 0.3-0.8 [facility] Comment on above: Performed By: #### C VDAGS #### [facility] [address] [place] [address] Dr. Jean Crow Monocytes/100 WBC (Bld) 1.1 % Critically low 1.7-12.0 [facility] Comment on above: Performed By: #### C VDAGS #### [facility] [address] [place] [address] Dr. Jean Crow NEUT # 11.9 103/ul Critically high 1.4-6.5 [facility] Comment on above: Performed By: #### C VDAGS #### [facility] [address] [place] [address] Dr. Jean Crow Neutrophils/100 WBC (Bld) 90.4 % Critically high 43.0-75.0 [facility] Comment on above: Performed By: #### C VDAGS #### [facility] [address] [place] [address] Dr. Jean Crow Platelet mean volume (Bld) [Entitic vol] 9.2 fL Critically low 9.5-13.5 [facility] Comment on above: Performed By: #### C VDAGS #### [facility] [address] [place] [address] Dr. Jean Crow PLT 235 103/ul Normal 150-450 [facility] Comment on above: Performed By: #### C VDAGS #### [facility] [address] [place] [address] Dr. Jean Crow RBC 4.35 106/ul Normal 4.20-5.40 [facility] Comment on above: Performed By: #### C VDAGS #### [facility] [address] [place] [address] Dr. Jean Crow WBC 13.1 103/ul Critically high 4.0-11.0 [facility] Comment on above: Performed By: #### C VDAGS #### [facility] [address] [place] [address] Dr. Jean Crow PROF 14(COMP METB)on 023 Albumin [Mass/Vol] 2.8 g/dL Critically low 3.4-5.0 [facility] Comment on above: Performed By: #### C VDAGS #### [facility] [address] [place] [address] Dr. Jean Crow Albumin/Globulin [Mass ratio] 0.8 {ratio} Normal [facility] Comment on above: Performed By: #### C VDAGS #### [facility] [address] [place] [address] Dr. Jean Crow ALP [Catalytic activity/Vol] 82 U/L Normal 46-116 [facility] Comment on above: Performed By: #### C VDAGS #### [facility] [address] [place] [address] Dr. Jean Crow ALT [Catalytic activity/Vol] 30 U/L Normal 14-59 [facility] Comment on above: Performed By: #### C VDAGS #### [facility] [address] [place] [address] Dr. Jean Crow Anion gap [Moles/Vol] 14.7 mmol/L Normal [facility] Comment on above: Performed By: #### C VDAGS #### [facility] [address] [address] [address] Jean Crow AST [Catalytic activity/Vol] 13 U/L Critically low 15-37 [facility] Comment on above: Performed By: #### C VDAGS #### [facility] [address] [place] [address] Dr. Jean Crow Bilirubin [Mass/Vol] 0.4 mg/dL Normal 0.2-1.0 [facility] Comment on above: Performed By: #### C VDAGS #### [facility] [address] [place] [address] Dr. Jean Crow Calcium [Mass/Vol] 8.5 mg/dL Normal 8.5-10.1 [facility] Comment on above: Performed By: #### C VDAGS #### [facility] [address] [place] [address] Dr. Jean Crow Chloride [Moles/Vol] 101 mmol/L Normal 98-107 [facility] Comment on above: Performed By: #### C VDAGS #### [facility] [address] [place] [address] Dr. Jean Crow CO2 [Moles/Vol] 26.0 mmol/L Normal 21.0-32.0 [facility] Comment on above: Performed By: #### C VDAGS #### [facility] [address] [place] [address] Dr. Jean Crow Creatinine [Mass/Vol] 0.59 mg/dL Normal 0.55-1.02 [facility] Comment on above: Performed By: #### C VDAGS #### [facility] [address] [place], [place] [id number] Dr. Jean Crow EGFR-AF QATARI >60 Normal >=60 [facility] Comment on above: Performed By: #### C VDAGS #### [facility] [address] [place] [address] Dr. Jean Crow EGFR-NON AF QATARI >60 Normal >=60 [facility] Comment on above: Performed By: #### C VDAGS #### [facility] [address] [place] [address] Dr. Jean Crow Globulin (S) [Mass/Vol] 3.4 g/dL Normal [facility] Comment on above: Performed By: #### C VDAGS #### [facility] [address] [place] [address] Dr. Jean Crow Glucose [Mass/Vol] 240 mg/dL Critically high 74-106 T [facility] Comment on above: Performed By: #### C VDAGS #### [facility] [address] [place] [address] Dr. Jean Crow Potassium [Moles/Vol] 3.7 mmol/L Normal 3.5-5.1 [facility] Comment on above: Performed By: #### C VDAGS #### [facility] [address] [place] [address] Dr. Jean Crow Protein [Mass/Vol] 6.2 g/dL Critically low 6.4-8.2 Th [facility] Comment on above: Performed By: #### C VDAGS #### [facility] [address] [place] [address] Dr. Jean Crow Sodium [Moles/Vol] 138 mmol/L Normal 136-145 [facility] Comment on above: Performed By: #### C VDAGS #### [facility] [address] [place] [address] Dr. Jean Crow Urea nitrogen [Mass/Vol] 17.0 mg/dL Normal 7.0-18.0 [facility] Comment on above: Performed By: #### C VDAGS #### [facility] [address] [place] [address] Dr. Jean Crow Urea nitrogen/Creatinine [Mass ratio] 28.8 mg/mg Normal [facility] Comment on above: Performed By: #### C VDAGS #### [facility] [address] [place] [address] Dr. Jean Crow BNPon 09-15-2022 Natriuretic peptide B (Bld) [Mass/Vol] 89.0 pg/mL Normal <=900.0 [facility] Comment on above: Performed By: #### H STROPN, BNP #### [facility] [address] [place] [address] Dr. Jean Crow CBC AUTO DIFFon 09-15-2022 BASO # 0.0 103/ul Normal 0.0-0.1 [facility] Comment on above: Performed By: #### C VDAGS #### [facility] [address] [place] [address] Dr. Jean Crow Basophils/100 WBC (Bld) 0.3 % Normal 0.2-2.0 [facility] Comment on above: Performed By: #### C VDAGS #### [facility] [address] [place] [address] Dr. Jean Crow EO # 0.0 103/ul Normal 0.0-0.7 [facility] Comment on above: Performed By: #### C VDAGS #### [facility] [address] [place] [address] Dr. Jean Crow Eosinophils/100 WBC (Bld) 0.3 % Critically low 0.9-7.0 [facility] Comment on above: Performed By: #### C VDAGS #### [facility] [address] [place] [address] Dr. Jean Crow Erythrocyte distribution width (RBC) [Ratio] 16.5 % Critically high 11.0-15.0 [facility] Comment on above: Performed By: #### C VDAGS #### [facility] [address] [place] [address] Dr. Jean Crow Hematocrit (Bld) [Volume fraction] 37.1 % Normal 36.0-48.0 [facility] Comment on above: Performed By: #### C VDAGS #### [facility] [address] [address] [address] Jean Crow Hemoglobin (Bld) [Mass/Vol] 11.9 g/dL Critically low 12.0-16.0 [facility] Comment on above: Performed By: #### C VDAGS #### [facility] [address] [address] [address] Jean Crow IG # 0.25 10e3/ul Critically high 0.00-0.03 [facility] Comment on above: Performed By: #### C VDAGS #### [facility] [address] [place] [address] Dr. Jean Crow IG % 2.4 % Critically high 0.0-0.5 [facility] Comment on above: Performed By: #### C VDAGS #### [facility] [address] [place] [address] Dr. Jean Crow LYMPH # 2.1 103/ul Normal 1.2-3.8 [facility] Comment on above: Performed By: #### C VDAGS #### [facility] [address] [place] [address] Dr. Jean Crow Lymphocytes/100 WBC (Bld) 19.3 % Critically low 20.5-60.0 [facility] Comment on above: Performed By: #### C VDAGS #### [facility] [address] [place] [address] Dr. Jean Crow MANUAL DIFF REQ NO Normal [facility] Comment on above: Performed By: #### C VDAGS #### [facility] [address] [place] [address] Dr. Jean Crow MCH (RBC) [Entitic mass] 27.9 pg Normal 26.7-34.0 [facility] Comment on above: Performed By: #### C VDAGS #### [facility] [address] [place] [address] Dr. Jean Crow MCHC (RBC) [Mass/Vol] 32.1 g/dL Normal 29.9-35.2 [facility] Comment on above: Performed By: #### C VDAGS #### [facility] [address] [address] [address] Jean Crow MCV (RBC) [Entitic vol] 86.9 fL Normal 81.0-99.0 [facility] Comment on above: Performed By: #### C VDAGS #### [facility] [address] [place] [address] Dr. Jean Crow MONO # 0.7 103/ul Normal 0.3-0.8 [facility] Comment on above: Performed By: #### C VDAGS #### [facility] [address] [place] [address] Dr. Jean Crow Monocytes/100 WBC (Bld) 6.1 % Normal 1.7-12.0 [facility] Comment on above: Performed By: #### C VDAGS #### [facility] [address] [place] [address] Dr. Jean Crow NEUT # 7.6 103/ul Critically high 1.4-6.5 [facility] Comment on above: Performed By: #### C VDAGS #### [facility] [address] [place] [address] Dr. Jean Crow Neutrophils/100 WBC (Bld) 71.6 % Normal 43.0-75.0 [facility] Comment on above: Performed By: #### C VDAGS #### [facility] [address] [place] [address] Dr. Jean Crow Platelet mean volume (Bld) [Entitic vol] 9.1 fL Critically low 9.5-13.5 [facility] Comment on above: Performed By: #### C VDAGS #### [facility] [address] [place] [address] Dr. Jean Crow PLT 244 103/ul Normal 150-450 [facility] Comment on above: Performed By: #### C VDAGS #### [facility] [address] [place] [address] Dr. Jean Crow RBC 4.27 106/ul Normal 4.20-5.40 [facility] Comment on above: Performed By: #### C VDAGS #### [facility] [address] [address] [address] Jean Crow WBC 10.6 103/ul Normal 4.0-11.0 [facility] Comment on above: Performed By: #### C VDAGS #### [facility] [id number] Jean Crow CTA CHEST WO W CONon 023 CTA CHEST WO W CON EXAMINATION: CTA CHEST WO W CON, 09/15/2022 9:56 AM EDT HISTORY: SHORTNESS OF BREATH COMPARISON: None. TECHNIQUE: CT angiography of the chest was performed with IV contrast. MIP (maximum intensity projection) images or 3D post processing was performed. CT dose reduction technique was used, including Automated Exposure Control. FINDINGS: VASCULATURE/PULMONAR Y ARTERIES: There is suboptimal opacification of the [...] TYLER BEAN Date: 2022-09-15 11:31 Normal [facility] Covid-19 PCR (CVDTBH)on 08-29 SARS-CoV-2 (COVID-19) RNA BRIAN+probe Ql (Unsp spec) Indeterminate Abnormal NOT DETECTED [facility] Comment on above: Result Comment: Spec imen tested x2 to verify. Please resubmit new specimen if symptoms persist Performed By: #### C VDTBH ####[facility] [address] [address]Dr. Jean Crow D-DIMERon 09-15-2022 D-DIMER 0.72 mg/L FEU Critically high <=0.59 [facility] Comment on above: Performed By: #### D DIM ####[facility] [address] [address]Dr. Jean Crow D-DIMER COMMENTS SEE BELOW Normal [facility] Comment on above: Result Comment: Incr eases [...] generalized hospitalization. Performed By: #### D DIM ####[facility] [address] [place], [place] [address]Dr. Jean Crow PROF 14(COMP METB)on 023 Albumin [Mass/Vol] 3.0 g/dL Critically low 3.4-5.0 [facility] Comment on above: Performed By: #### C MP ####[facility] [address] [place], [place] [address]Dr. Jean Crow Albumin/Globulin [Mass ratio] 0.9 {ratio} Normal [facility] Comment on above: Performed By: #### C MP ####[facility] [address] [place], [place] [address]Dr. Jean Crow ALP [Catalytic activity/Vol] 83 U/L Normal 46-116 [facility] Comment on above: Performed By: #### C MP ####[facility] [address] [address]Dr. Jean Crow ALT [Catalytic activity/Vol] 30 U/L Normal 14-59 [facility] Comment on above: Performed By: #### C MP ####[facility] [address] [id number]. Jean Crow Anion gap [Moles/Vol] 12.6 mmol/L Normal [facility] Comment on above: Performed By: #### C MP ####[facility] [address] [id number]. Jean Crow AST [Catalytic activity/Vol] 18 U/L Normal 15-37 [facility] Comment on above: Performed By: #### C MP ####[facility] [address] [address]Dr. Jean Crow Bilirubin [Mass/Vol] 0.3 mg/dL Normal 0.2-1.0 [facility] Comment on above: Performed By: #### C MP ####[facility] [address] [place], [place] [address]Dr. Jean Crow Calcium [Mass/Vol] 8.3 mg/dL Critically low 8.5-10.1 Th [facility] Comment on above: Performed By: #### C MP ####[facility] [address] [address]Dr. Jean Crow Chloride [Moles/Vol] 103 mmol/L Normal 98-107 [facility] Comment on above: Performed By: #### C MP ####[facility] [address] [place], [place] [address]Dr. Jean Crow CO2 [Moles/Vol] 28.6 mmol/L Normal 21.0-32.0 [facility] Comment on above: Performed By: #### C MP ####[facility] [address] [address]Dr. Jean Crow Creatinine [Mass/Vol] 0.55 mg/dL Normal 0.55-1.02 [facility] Comment on above: Performed By: #### C MP ####[facility] [address] [place], [place] [address]Dr. Jean Tristin EGFR-AF QATARI >60 Normal >=60 [facility] Comment on above: Performed By: #### C MP ####[facility] [address] [address]Dr. Jean Crow EGFR-NON AF QATARI >60 Normal >=60 [facility] Comment on above: Performed By: #### C MP ####[facility] [address] [address]Dr. Jean Crow Globulin (S) [Mass/Vol] 3.3 g/dL Normal [facility] Comment on above: Performed By: #### C MP ####[facility] [address] [address]Dr. Jean Crow Glucose [Mass/Vol] 130 mg/dL Critically high 74-106 T [facility] Comment on above: Performed By: #### C MP ####[facility] [address] [address]Dr. Jean Crow Potassium [Moles/Vol] 3.2 mmol/L Critically low 3.5-5.1 [facility] Comment on above: Performed By: #### C MP ####[facility] [address] [place], [place] [address]Dr. Jean Crow Protein [Mass/Vol] 6.3 g/dL Critically low 6.4-8.2 [facility] Comment on above: Performed By: #### C MP ####[facility] [address] [place], [place] [address]Dr. Jean Crow Sodium [Moles/Vol] 141 mmol/L Normal 136-145 [facility] Comment on above: Performed By: #### C MP ####[facility] [address] [address]Dr. Jean Crow Urea nitrogen [Mass/Vol] 23.0 mg/dL Critically high 7.0-18.0 [facility] Comment on above: Performed By: #### C MP ####[facility] [address] [place], [place] [address]Dr. Jean Crow Urea nitrogen/Creatinine [Mass ratio] 41.8 mg/mg Normal [facility] Comment on above: Performed By: #### C MP ####[facility] [address] [place], [place] [id number]. Jean Crow SYMPTOMATIC COVID-19 ANTIGEN on 09-15-2022 EUA Statement SEE BELOW Normal [facility] Comment on above: Result Comment: This test [...] is revoked sooner. Performed By: #### C GLORIAAGS #### [facility] [address] [place] [address] Dr. Jean Crow SARS-CoV-2 (COVID-19) RNA BRIAN+probe Ql (Unsp spec) Negative Normal NEGATIVE [facility] Comment on above: Performed By: #### C VDAGS #### [facility] [address] [place] [address] Dr. Jean Crow TROPONIN, HIGH SENSITIVITYon 09-15-2022 HSTROP 9.2 pg/mL Normal 4.0-51.3 [facility] Comment on above: Result Comment: CUT- OFF POINTS HAVE BEEN ESTABLISHED BASED ON THE FOURTH UNIVERSAL DEFINITIONS OF MYOCARDIAL INFARCTION. THE UPPER REFERENCE LIMIT (URL) OF TROPONIN, DEFINED THE 99TH PERCENTILE OF cTnI DISTRIBUTION IN A REFERENCE POPULATION, HAS BEEN CONFIRMED THE DECISION THRESHOLD FOR [place] DIAGNOSIS. Performed By: #### H STROPN, BNP #### [facility] [address] [place], [place] [id number] Dr. Jean Crow XR CHEST 1 Von [...] by: KARSON SCHMIDT Date: 2022-09-15 09:34 Normal [facility] CHEMISTRYOrdered By: SYSTEM SYSTEM on 09-07-2022 Albumin [...] Invalid Interpretation Code 0.1 - 0.9 mg/dL [facility] Remisol Calcium [Mass/Vol] 8.3 mg/dL Low 8.9 - 11.1 mg/dL [facility] Remisol Chloride [Moles/Vol] 104 mmol/L Normal 101 - 111 mmol/ L [facility] Remisol CO2 [Moles/Vol] 28 mmol/L Normal 21 - 31 mmol/L [facility] Remisol Creatinine [Mass/Vol] 0.6 mg/dL Normal 0.5 - 1.3 mg/dL [facility] Remisol GFR/1.73 sq M.predicted among blacks MDRD (S/P/Bld) [Vol rate/Area] mL/min/1.73 m2 Normal >=59mL/min/1.73 m2 [facility] Chem S GFR/1.73 sq M.predicted among non-blacks MDRD (S/P/Bld) [Vol rate/Area] mL/min/1.73 m2 Normal >=59mL/min/1.73 m2 [facility] Chem S Globulin (S) [Mass/Vol] 2.8 g/dL Normal 1.4 - 4.0 gm/dL [facility] Remisol Glucose [Mass/Vol] 148 mg/dL Normal 55 - 199 mg/dL [facility] Potassium [Moles/Vol] 3.7 mmol/L Normal 3.5 - 5.3 mmol/L [facility] Protein [Mass/Vol] 5.8 g/dL Low 6.0 - 7.8 gm/dL [facility] Remisol Sodium [Moles/Vol] 138 mmol/L Normal 135 [...] 9 pg/mL Normal 5 - 80 pg/mL [facility] HemeManSS COAGULATIONOrdered By: Arya Winter on 09-07-2022 aPTT Coag (PPP) [Time] 24.7 s Low 25.1 - 36.5 second(s) [facility] Coag INR Coag (PPP) [Relative time] 1.0 {INR} Invalid Interpretation Code [facility] Auto Coag PT Coag (PPP) [Time] 10.8 s Normal 9.4 - 1 2.5 second(s) [facility] Coag HEMATOLOGYOrdered By: SYSTEM SYSTEM on 09-07-2022 Basophils/100 WBC (Bld) 0.4 % Normal 0.0 - 2.0 % [facility] HemeAutoSS Basophils/Leukocytes Auto (Bld) [Pure # fraction] 0.0 E9/L Normal 0.0 - 0.2 E9/L [facility] Eosinophils/100 WBC (Bld) 0.4 % Normal 0.0 - 8.0 % [facility] HemeAutoSS Eosinophils/Leukocyt es Auto (Bld) [Pure # fraction] 0.0 E9/L Normal 0.0 - 0.5 E9/L [facility]eAutoSS Lymphocytes/100 WBC (Bld) 16.3 % Normal 14.0 - 50.0 % [facility]eAutoSS Lymphocytes/Leukocyt es Auto (Bld) [Pure # fraction] 1.8 E9/L Normal 1.0 - 4.0 E9/L [facility]eAutoSS Monocytes/100 WBC (Bld) 7.3 % Normal 4.0 - 14.0 % [facility]eAutoSS Monocytes/Leukocytes Auto (Bld) [Pure # fraction] 0.8 E9/L Normal 0.2 - 1.0 E9/L [facility]SS Neutrophils/100 WBC (Bld) 75.6 % High 36.0 - 75.0 % [facility] HemeAutoSS Neutrophils/Leukocyt es Auto (Bld) [Pure # fraction] 8.5 E9/L [...] 32.1 g/dL Normal 31.4 - 36.0 gm/dL [facility]eAuto[facility] MCV (RBC) [Entitic vol] 84.2 fL Normal 80.0 - 100.0 fL [facility]eAuto[facility] Platelet mean volume (Bld) [Entitic vol] 7.5 fL Normal 6.4 - 10.8 fL [facility]eAutoSS Platelets (Bld) [#/Vol] 252.0 E9/L Normal 150.0 - 500.0 E9/L [facility]SS RBC (Bld) [#/Vol] 4.2 E12/L Low 4.3 - 5.9 E12/L [facility]eAutoSS WBC corrected for nucl RBC Auto (Bld) [#/Vol] 11.2 E9/L High 4.0 - 11.0 E9/L [facility] HemeAutoSS COVID/FLU RT-PCRon 3 SARS-CoV-2 (COVID-19) RNA BRIAN+probe Ql (Unsp spec) Negative [employer] [facility] [employer] Other COVID/FLU RT-PCR Negative [facility] [employer] Other CALCIUMon 08-10-2022 Calcium [Mass/Vol] 9.4 mg/dL Normal 8.5-10.1 [facility] Comment on above: Performed By: #### C VDAGS #### [facility] [address] [place] [address] Dr. Jean Crow CHEMISTRYOrdered By: Lab ROP User on 05-22-2022 Glucose [Mass/Vol] 97 mg/dL Normal 55 - 99 mg/dL [facility] C POC Subsection Comment on above: Result Comment: Sugar muhammad RN/MD POC Device SN [id number] Invalid Interpretation Code [facility] POC Subsection POC User ID [id number] Invalid Interpretation Code [facility] POC Subsection POC Username SONAL KAUR Invalid Interpretation Code [facility] POC Subsection Glucose [Mass/Vol] 78 mg/dL Normal 55 - 99 mg/dL [facility] C POC Subsection Comment on above: Result Comment: Sugar muhammad RN/MD POC Device SN [id number] Invalid Interpretation Code [facility] POC Subsection POC User ID [id number] Invalid Interpretation Code [facility] POC Subsection POC Username SONAL KAUR Invalid Interpretation Code [facility] POC Subsection Glucose [Mass/Vol] 94 mg/dL Normal 55 - 99 mg/dL [facility] C POC Subsection Comment on above: Result Comment: Sugar muhammad RN/MD POC Device SN [id number] Invalid Interpretation Code [facility] POC Subsection POC User ID [id number] Invalid Interpretation Code FT POC Subsection POC Username [email or web address] [email or web address] Invalid Interpretation Code FT POC Subsection CHEMISTRYOrdered By: SYSTEM SYSTEM on 05-22-2022 Troponin I.cardiac [Mass/Vol] 6.50 pg/mL Low 10.10 - 27.10 pg/mL [facility] Remisol Anion gap [Moles/Vol] 13 mmol/L Normal 6 - 16 mEq/L [facility] Remisol Calcium [Mass/Vol] 7.8 mg/dL Low 8.9 - 11.1 mg/dL [facility]isol Chloride [Moles/Vol] 101 mmol/L Normal 101 - 111 mmol/ L [facility] Remisol Cholesterol [Mass/Vol] 204 mg/dL High 120 - 200 mg/dL [facility] Cholesterol in HDL [Mass/Vol] 57 mg/dL Invalid Interpretation Code [facility] Remisol Cholesterol in LDL [Mass/Vol] 135 mg/dL High <=129mg/dL [facility] Cholesterol in VLDL [Mass/Vol] 13 mg/dL Normal 7 - 40 mg/dL [facility] CO2 [Moles/Vol] 25 mmol/L Normal 21 - 31 mmol/L [facility] Creatinine [Mass/Vol] 0.8 mg/dL Normal 0.5 - 1.3 mg/dL [facility] Remisol GFR/1.73 sq M.predicted among blacks MDRD (S/P/Bld) [Vol rate/Area] mL/min/1.73 m2 Normal >=59mL/min/1.73 m2 [facility] [place] Chem S GFR/1.73 sq M.predicted among non-blacks MDRD (S/P/Bld) [Vol rate/Area] mL/min/1.73 m2 Normal >=59mL/min/1.73 m2 [facility] [place] Chem S Glucose [Mass/Vol] 90 mg/dL Normal [...] 11.30 pg/mL Normal 10.10 - 27.10 pg/mL [facility] Remisol Albumin [Mass/Vol] 3.6 g/dL Normal 3.3 - 5.0 gm/dL [facility] Remisol Albumin/Globulin [Mass ratio] 1.1 {ratio} Normal 1.1 - 2.2 [facility] Remisol ALP [Catalytic activity/Vol] 80 [iU]/d Normal 21 - 98 Int._Unit/L [facility] Remisol ALT No additional P-5'-P [Catalytic activity/Vol] 15 [iU]/d Normal 6 - 46 Int._Unit/L [facility] Remisol Anion gap [Moles/Vol] 16 mmol/L Normal 6 - 16 mEq/L [facility] Remisol AST [Catalytic activity/Vol] 33 [iU]/d Normal 5 - 43 Int._Unit/L [facility] Remisol Bilirubin [Mass/Vol] 1.7 mg/dL High 0.0 - 1.1 mg/dL [facility] Remisol Bilirubin.direct [Mass/Vol] 0.4 mg/dL Normal 0.1 - 0.4 mg/dL [facility] Remisol Bilirubin.indirect [Mass or moles/Vol] 1.3 mg/dL High 0.1 - 0.9 mg/dL [facility] Remisol Calcium [Mass/Vol] 8.5 mg/dL Low 8.9 - 11.1 mg/dL [facility]isol Chloride [Moles/Vol] 99 mmol/L Low 101 - 111 mmol/ L [facility] Remisol CO2 [Moles/Vol] 22 mmol/L Normal 21 - 31 mmol/L [facility] Remisol Creatinine [Mass/Vol] 0.5 mg/dL Normal 0.5 - 1.3 mg/dL [facility] Remisol GFR/1.73 sq M.predicted among blacks MDRD (S/P/Bld) [Vol rate/Area] mL/min/1.73 m2 Normal >=59mL/min/1.73 m2 [facility] Chem S GFR/1.73 sq M.predicted among non-blacks MDRD (S/P/Bld) [Vol rate/Area] mL/min/1.73 m2 Normal >=59mL/min/1.73 m2 [facility] Chem S Globulin (S) [Mass/Vol] 3.3 g/dL Normal 1.4 - 4.0 gm/dL [facility] Remisol Glucose [Mass/Vol] 98 mg/dL Normal 55 - 199 mg/dL [facility] Remisol Lipase [Catalytic activity/Vol] 28 U/L Normal 13 - 58 unit/L [facility] Remisol Potassium [Moles/Vol] 3.6 mmol/L Normal 3.5 - 5.3 mmol/L [facility]isol Protein [Mass/Vol] 6.9 g/dL Normal 6.0 - 7.8 gm/dL [facility] Remisol Sodium [Moles/Vol] 133 mmol/L Low 135 - 145 mmol/L [facility] Remisol Urea nitrogen [Mass/Vol] 15 mg/dL Normal 5 - 21 mg/dL [facility] Remisol Urea nitrogen/Creatinine [Mass ratio] 30 mg/mg High 10 - 20 [facility] Remisol CHEMISTRYOrdered By: Alesia Aragon on 05-22-2022 HbA1c (Bld) [Mass fraction] 6.1 % High <=5.9% [facility] ChemAutoSS COAGULATIONOrdered By: Arya Winter on 05-22-2022 aPTT Coag (PPP) [Time] 26.1 s Normal 25.1 - 36.5 second(s) [facility] Auto Coag INR Coag (PPP) [Relative time] 1.1 {INR} Invalid Interpretation Code [facility] Auto Coag PT Coag (PPP) [Time] 12.0 s Normal 9.4 - 1 2.5 second(s) [facility] Auto Coag HEMATOLOGYOrdered By: SYSTEM SYSTEM on 05-22-2022 Basophils/100 WBC (Bld) 0.4 % Normal 0.0 - 2.0 % [facility] HemeAutoSS Basophils/Leukocytes Auto (Bld) [Pure # fraction] 0.0 E9/L Normal 0.0 - 0.2 E9/L [facility] HemeAutoSS Eosinophils/100 WBC (Bld) 0.7 % Normal 0.0 - 8.0 % [facility] HemeAutoSS Eosinophils/Leukocyt es Auto (Bld) [Pure # fraction] 0.1 E9/L Normal 0.0 - 0.5 E9/L [facility] HemeAutoSS Lymphocytes/100 WBC (Bld) 11.7 % Low 14.0 - 50.0 % [facility] HemeAutoSS Lymphocytes/Leukocyt es Auto (Bld) [Pure # fraction] 0.8 E9/L Low 1.0 - 4.0 E9/L [facility] HemeAutoSS Monocytes/100 WBC (Bld) 7.2 % Normal 4.0 - 14.0 % [facility] HemeAutoSS Monocytes/Leukocytes Auto (Bld) [Pure # fraction] 0.5 E9/L Normal 0.2 - 1.0 E9/L [facility] HemeAutoSS Neutrophils/100 WBC (Bld) 80.0 % High 36.0 - 75.0 % [facility] HemeAutoSS Neutrophils/Leukocyt es Auto (Bld) [Pure # fraction] 5.8 E9/L Normal 2.0 - 7.5 E9/L [facility] HemeAutoSS Basophils/100 WBC (Bld) 0.2 % Normal 0.0 - 2.0 % [facility] HemeAutoSS Basophils/Leukocytes Auto (Bld) [Pure # fraction] 0.0 E9/L Normal 0.0 - 0.2 E9/L [facility] HemeAutoSS Eosinophils/100 WBC (Bld) 0.4 % Normal 0.0 - 8.0 % [facility] HemeAutoSS Eosinophils/Leukocyt es Auto (Bld) [Pure # fraction] 0.0 E9/L Normal 0.0 - 0.5 E9/L [facility] HemeAutoSS Lymphocytes/100 WBC (Bld) 7.4 % Low 14.0 - 50.0 % [facility] HemeAutoSS Lymphocytes/Leukocyt es Auto (Bld) [Pure # fraction] 0.8 E9/L Low 1.0 - 4.0 E9/L [facility] HemeAutoSS Monocytes/100 WBC (Bld) 7.1 % Normal 4.0 - 14.0 % [facility] HemeAutoSS Monocytes/Leukocytes Auto (Bld) [Pure # fraction] 0.7 E9/L Normal 0.2 - 1.0 E9/L [facility] HemeAutoSS Neutrophils/100 WBC (Bld) 84.9 % High 36.0 - 75.0 % [facility] HemeAutoSS Neutrophils/Leukocyt es Auto (Bld) [Pure # fraction] 8.8 E9/L High 2.0 - 7.5 E9/L [facility] HemeAutoSS HEMATOLOGYOrdered By: Keisha Espinal on 05-22-2022 Erythrocyte distribution width (RBC) [Ratio] 16.2 % High 10.9 - 14.2 % [facility] HemeAutoSS Hematocrit (Bld) [Volume fraction] 32.2 % Low 34.0 - 46.0 % [facility] HemeAutoSS Hemoglobin (Bld) [Mass/Vol] 11.1 g/dL Low 12.0 - 16.0 gm/dL [facility] HemeAutoSS MCH (RBC) [Entitic mass] 27.3 pg [...] 231.0 E9/L Normal 150.0 - 500.0 E9/L [facility] HemeAutoSS RBC (Bld) [#/Vol] 4.1 E12/L Low 4.3 - 5.9 E12/L [facility] HemeAutoSS Sed Rate Automated 23 mm/h Normal 0 - 34 mm/hr [facility] HemeAutoSS WBC corrected for nucl RBC Auto (Bld) [#/Vol] 7.2 E9/L Normal 4.0 - 11.0 E9/L [facility] HemeAutoSS HEMATOLOGYOrdered By: Juhi Winter on 05-22-2022 Erythrocyte distribution width (RBC) [Ratio] 16.2 % High 10.9 - 14.2 % [facility] HemeAutoSS Hematocrit (Bld) [Volume fraction] 36.4 % Normal 34.0 - 46.0 % [facility] HemeAutoSS Hemoglobin (Bld) [Mass/Vol] 12.3 g/dL Normal 12.0 - 16.0 gm/dL [facility] HemeAutoSS MCH (RBC) [Entitic mass] 27.0 pg Normal 27.0 - 34.0 pg [facility]eAutoSS MCHC (RBC) [Mass/Vol] 33.8 g/dL Normal 31.4 - 36.0 gm/dL [facility] HemeAutoSS MCV (RBC) [Entitic vol] 79.9 fL Low 80.0 - 100.0 fL [facility] HemeAutoSS Platelet mean volume (Bld) [Entitic vol] 7.2 fL Normal 6.4 - 10.8 fL [facility] HemeAutoSS Platelets (Bld) [#/Vol] 218.0 E9/L Normal 150.0 - 500.0 E9/L [facility] HemeAutoSS RBC (Bld) [#/Vol] 4.6 E12/L Normal 4.3 - 5.9 E12/L [facility] HemeAutoSS WBC corrected for nucl RBC Auto (Bld) [#/Vol] 10.3 E9/L Normal 4.0 - 11.0 E9/L [facility] HemeAutoSS HEMATOLOGYOrdered By: SYSTEM SYSTEM on 05-17-2022 Basophils/100 WBC (Bld) 1.8 % Normal 0.0 - 2.0 % [facility] HemeAutoSS Basophils/Leukocytes Auto (Bld) [Pure # fraction] 0.2 E9/L Normal 0.0 - 0.2 E9/L [facility] HemeAutoSS Eosinophils/100 WBC (Bld) 0.9 % Normal 0.0 - 8.0 % [facility] HemeAutoSS Eosinophils/Leukocyt es Auto (Bld) [Pure # fraction] 0.1 E9/L Normal 0.0 - 0.5 E9/L [facility] HemeAutoSS Lymphocytes/100 WBC (Bld) 21.7 % Normal 14.0 - 50.0 % [facility] HemeAutoSS Lymphocytes/Leukocyt es Auto (Bld) [Pure # fraction] 2.1 E9/L Normal 1.0 - 4.0 E9/L [facility] HemeAutoSS Monocytes/100 WBC (Bld) 6.6 % Normal 4.0 - 14.0 % [facility] HemeAutoSS Monocytes/Leukocytes Auto (Bld) [Pure # fraction] 0.6 E9/L Normal 0.2 - 1.0 E9/L [facility] HemeAutoSS Neutrophils/100 WBC (Bld) 69.0 % Normal 36.0 - 75.0 % [facility] HemeAutoSS Neutrophils/Leukocyt es Auto (Bld) [Pure # fraction] 6.6 E9/L Normal 2.0 - 7.5 E9/L [facility] HemeAutoSS HEMATOLOGYOrdered By: Alliso n Moy on 05-17-2022 Erythrocyte distribution width [...] 81.7 fL Normal 80.0 - 100.0 fL [facility] [...] above: Result Comment: Slid e reviewed by [facility]on SARS-CoV-2 (COVID-19) RNA BRIAN+probe Ql (Unsp spec) Not detected Normal NOT DETECTED [facility] Comment on above: Result Comment: When diagnostic [...] for this test is supported by the Network Operations Analyst of Health and Human Service's declaration that [...] longer be used). Performed By: #### C PENDING SALE TO [facility] ####[facility] [address] [place], [place] [address]YqYury Crow XR CHEST 1 Von 05-03-2022 XR CHEST 1 V EXAMINATION: XR CHEST 1 V HISTORY: Difficulty swallowing COMPARISON: Chest x-ray 04/09/2022 TECHNIQUE: Portable chest FINDINGS: The lung parenchyma is free of consolidation or infiltrate. No pneumothorax or pleural effusion. The cardiac, mediastinal and hilar contours are normal. The visualized osseous structures exhibit no gross abnormality. IMPRESSION: No acute cardiopulmonary abnormality. Electronically authenticated by: KAROSN CHAUDHARY Date: 2022-05-03 21:16 Normal [facility] XR chest 2V*on 05-02-2022 XR chest 2V* [facility] [employer] Other XR chest 2V* [facility] [employer] Other XR chest 2V* [address] [place] [address] [employer] Other XR chest 2V* [place], [place] [id number] [place] [address] [employer] Other XR chest 2V* XRay Report [employer] Other XR chest 2V* Signed [employer] Other XR chest 2V* Patient: Carolina Gutierrez MR#: [id number] [place] [employer] Other XR chest 2V* : 1960 Acct:[id number] [employer] Other XR chest 2V* Age/Sex: 61 / F ADM Date: 05/02/22 [employer] Other XR chest 2V* Loc: XDUCLY Room: Type: [facility] [employer] Other XR chest 2V* Attending Dr: Naomie Berry [employer] Other XR chest 2V* Copies to: RADHA Jacob [place] [employer] Other XR chest 2V* Ordering Provider: RADHA Jacob [place] [employer] Other XR chest 2V* Date of Service: 05/02/22 [place] [employer] Other XR chest 2V* XR/XR chest 2V*: COUGH [employer] Other XR chest 2V* Chest [address] [facility] [employer] Other XR chest 2V* CLINICAL HISTORY: Productive cough and shortness of breath for one month. [employer] Other XR chest 2V* COMPARISON: Chest x-ray 04/15/2022 [employer] Other XR chest 2V* FINDINGS: [employer] Other XR chest 2V* Heart appears normal in size. Lungs are clear. No free air. Osseous structures demonstrate [employer] Other XR chest 2V* grossly stable compression deformities of the thoracic spine. Degenerative changes are also noted [employer] Other XR chest 2V* involving the shoulders with questionable left joint effusion. [employer] Other XR chest 2V* XR/XR chest 2V* [employer] Other XR chest 2V* IMPRESSION: [employer] Other XR chest 2V* NO ACUTE CARDIOPULMONARY ABNORMALITY. [employer] Other XR chest 2V* Impression dictated by: Elvia Florez Jr.OYury05/02/2022 5:01 PM [employer] Other XR chest 2V* Dictation Location: RADIO--14 [employer] Other XR chest 2V* Transcribed By: PWS 05/02/[address] [place] [address] [employer] Other XR chest 2V* Dictated By: Bill Hutchison Jr, DO 05/02/[address] [place] [address] [employer] Other XR chest 2V* Signed By: [employer] Other XR chest 2V* 05/02/[address] [place] [address] [employer] Other XR chest 2V*on 04-15-2022 SARS-CoV-2 (COVID-19) RNA BRIAN+probe Ql (Unsp spec) CLINICAL HISTORY: Cough and shortness of breath. COVID + 10 days ago. [employer] Other XR chest 2V* [facility] [employer] Other XR chest 2V* [facility] [employer] Other XR chest 2V* [address] [place] [address] [employer] Other XR chest 2V* [address] [employer] Other XR chest 2V* XRay Report [employer] Other XR chest 2V* Signed [employer] Other XR chest 2V* Patient: Carloina Gutierrez MR#: [id number] [place] [employer] Other XR chest 2V* : 1960 Acct:[id number] [employer] Other XR chest 2V* Age/Sex: 61 / F ADM Date: 04/15/22 [employer] Other XR chest 2V* Loc: XDUCLY Room: Type: [facility] [employer] Other XR chest 2V* Attending Dr: Consuelo Rosales APRN [employer] Other XR chest 2V* Copies to: Consuelo Rosales APRN [employer] Other XR chest 2V* Ordering Provider: Consuelo Rosales APRN [employer] Other XR chest 2V* Date of Service: 04/15/22 [employer] Other XR chest 2V* XR/XR chest 2V*: Persistent cough [employer] Other XR chest 2V* PA AND LATERAL CHEST: [employer] Other XR chest 2V* COMPARISON: 11/08/2021 [employer] Other XR chest 2V* There is no focal parenchymal consolidation, effusion or pneumothorax. The cardiac, hilar and [employer] Other XR chest 2V* mediastinal silhouettes are within normal limits. There is no vascular congestion. The [employer] Other XR chest 2V* visualized bony structures are osteopenic. There are compression fractures which were also seen [employer] Other XR chest 2V* previously . Mild endplate spurring and subtle dextroscoliotic curvature. There is suggestion of [employer] Other XR chest 2V* slight inferior subluxation of the left humeral head. [employer] Other XR chest 2V* XR/XR chest 2V* [employer] Other XR chest 2V* IMPRESSION: [employer] Other XR chest 2V* NO ACUTE CARDIOPULMONARY ABNORMALITY. [employer] Other XR chest 2V* Impression dictated by: Marisa Merlos M.D.04/15/2022 2:09 PM [employer] Other XR chest 2V* Dictation Location: RADIO--02 [employer] Other XR chest 2V* Transcribed By: PWS 04/15/22 1409 [place] [employer] Other XR chest 2V* Dictated By: Marisa Merlos MD 04/15/22 1407 [place] [employer] Other XR chest 2V* Signed By: [employer] Other XR chest 2V* 04/15/22 140 [facility] [employer] Other CBC AUTO DIFFon 04-09-2022 BASO # 0.0 103/ul Normal 0.0-0.1 [facility] Comment on above: Performed By: #### C BC ####[facility] [address] [place], [place] [address]Dr. Jean Crow Basophils/100 WBC (Bld) 0.2 % Normal 0.2-2.0 [facility] Comment on above: Performed By: #### C BC ####[facility] [address] [place], [place] [address]Dr. Jean Crow EO # 0.0 103/ul Normal 0.0-0.7 [facility] Comment on above: Performed By: #### C BC ####[facility] [address] [place], [place] [address]Dr. Jean Crow Eosinophils/100 WBC (Bld) 0.0 % Critically low 0.9-7.0 [facility] Comment on above: Performed By: #### C BC ####[facility] [address] [place], [place] [address]Dr. Jean Crow Erythrocyte distribution width (RBC) [Ratio] 14.8 % Normal 11.0-15.0 [facility] Comment on above: Performed By: #### C BC ####[facility] [address] [place], [place] [address]Dr. Jean Crow Hematocrit (Bld) [Volume fraction] 39.6 % Normal 36.0-48.0 [facility] Comment on above: Performed By: #### C BC ####[facility] [address] [place] [id number]. Jean Crow Hemoglobin (Bld) [Mass/Vol] 12.6 g/dL Normal 12.0-16.0 [facility] Comment on above: Performed By: #### C BC ####[facility] [address] [place] [id number]. Jean Crow IG # 0.15 10e3/ul Critically high 0.00-0.03 [facility] Comment on above: Performed By: #### C BC ####[facility] [address] [place] [id number]. Jean Crow IG % 1.5 % Critically high 0.0-0.5 [facility] Comment on above: Performed By: #### C BC ####[facility] [address] [place] [address]Dr. Jean Crow LYMPH # 0.9 103/ul Critically low 1.2-3.8 [facility] Comment on above: Performed By: #### C BC ####[facility] [address] [place] [id number]. Jean Crow Lymphocytes/100 WBC (Bld) 9.7 % Critically low 20.5-60.0 [facility] Comment on above: Performed By: #### C BC ####[facility] [address] [place] [id number]. Jean Crow MANUAL DIFF REQ NO Normal [facility] Comment on above: Performed By: #### C BC ####[facility] [address] [place] [id number]. Jean Crow MCH (RBC) [Entitic mass] 27.6 pg Normal 26.7-34.0 [facility] Comment on above: Performed By: #### C BC ####[facility] [address] [place] [id number]. Jean Crow MCHC (RBC) [Mass/Vol] 31.8 g/dL Normal 29.9-35.2 [facility] Comment on above: Performed By: #### C BC ####[facility] [address] [place] [id number]. Jean Crow MCV (RBC) [Entitic vol] 86.8 fL Normal 81.0-99.0 [facility] Comment on above: Performed By: #### C BC ####[facility] [address] [place] [id number]. Jean Crow MONO # 0.2 103/ul Critically low 0.3-0.8 [facility] Comment on above: Performed By: #### C BC ####[facility] [address] [place] [id number]. Jean Crow Monocytes/100 WBC (Bld) 2.1 % Normal 1.7-12.0 [facility] Comment on above: Performed By: #### C BC ####[facility] [address] [place], [place] [address]Dr. Jean Crow NEUT # 8.4 103/ul Critically high 1.4-6.5 [facility] Comment on above: Performed By: #### C BC ####[facility] [address] [place], [place] [address]Dr. Jean Crow Neutrophils/100 WBC (Bld) 86.5 % Critically high 43.0-75.0 [facility] Comment on above: Performed By: #### C BC ####[facility] [address] [place], [place] [address]Dr. Jean Crow Platelet mean volume (Bld) [Entitic vol] 9.5 fL Normal 9.5-13.5 [facility] Comment on above: Performed By: #### C BC ####[facility] [address] [place] [id number]. Jean Crow PLT 335 103/ul Normal 150-450 [facility] Comment on above: Performed By: #### C BC ####[facility] [address] [place] [id number]. Liliaazael Tristin RBC 4.56 106/ul Normal 4.20-5.40 [facility] Comment on above: Performed By: #### C BC ####[facility] [address] [place], [place] [address]MhDr. Jean Crow WBC 9.7 103/ul Normal 4.0-11.0 [facility] Comment on above: Performed By: #### C BC ####[facility] [address] [place], [place] [address]NeYury Liliaazael Crow CTA CHEST WO W CONon 022 CTA CHEST WO W CON EXAMINATION: [...] NHUNG DONG Date: 2022-04-09 14:56 Normal [facility] D-DIMERon 04-09-2022 D-DIMER 0.78 mg/L FEU Critically high <=0.59 The [facility] Comment on above: Performed By: #### C VDAGS #### [facility] [address] [place], [place] [address] Dr. Jean Crow D-DIMER COMMENTS SEE BELOW Normal [facility] Comment on above: Result Comment: Incr eases [...] hospitalization. Performed By: #### C VDAGS #### [facility] [address] [place] [address] Dr. Jean Crow PROF 14(COMP METB)on 022 Albumin [Mass/Vol] 3.7 g/dL Normal 3.4-5.0 [facility] Comment on above: Performed By: #### C VDAGS #### [facility] [address] [place] [address] Dr. Jean Crow Albumin/Globulin [Mass ratio] 1.0 {ratio} Normal [facility] Comment on above: Performed By: #### C VDAGS #### [facility] [address] [place] [address] Dr. Jean Crow ALP [Catalytic activity/Vol] 88 U/L Normal 46-116 [facility] Comment on above: Performed By: #### C VDAGS #### [facility] [address] [place] [address] Dr. Jean Crow ALT [Catalytic activity/Vol] 20 U/L Normal 14-59 [facility] Comment on above: Performed By: #### C VDAGS #### [facility] [address] [place] [address] Dr. Jean Crow Anion gap [Moles/Vol] 11.9 mmol/L Normal [facility] Comment on above: Performed By: #### C VDAGS #### [facility] [address] [place] [address] Dr. Jean Crow AST [Catalytic activity/Vol] 15 U/L Normal 15-37 [facility] Comment on above: Performed By: #### C VDAGS #### [facility] [address] [place] [address] Dr. Jean Crow Bilirubin [Mass/Vol] 0.5 mg/dL Normal 0.2-1.0 [facility] Comment on above: Performed By: #### C VDAGS #### [facility] [address] [place] [address] Dr. Jean Crow Calcium [Mass/Vol] 8.8 mg/dL Normal 8.5-10.1 [facility] Comment on above: Performed By: #### C VDAGS #### [facility] [address] [place] [address] Dr. Jean Crow Chloride [Moles/Vol] 103 mmol/L Normal 98-107 [facility] Comment on above: Performed By: #### C VDAGS #### [facility] [address] [place] [address] Dr. Jean Crow CO2 [Moles/Vol] 26.7 mmol/L Normal 21.0-32.0 [facility] Comment on above: Performed By: #### C VDAGS #### [facility] [address] [place] [address] Dr. Jean Crow Creatinine [Mass/Vol] 0.77 mg/dL Normal 0.55-1.02 [facility] Comment on above: Performed By: #### C VDAGS #### [facility] [address] [place] [address] Dr. Jean Crow EGFR-AF QATARI >60 Normal >=60 [facility] Comment on above: Performed By: #### C VDAGS #### [facility] [address] [place] [address] Dr. Jean Crow EGFR-NON AF QATARI >60 Normal >=60 [facility] Comment on above: Performed By: #### C VDAGS #### [facility] [address] [place] [address] Dr. Jean Crow Globulin (S) [Mass/Vol] 3.7 g/dL Normal [facility] Comment on above: Performed By: #### C VDAGS #### [facility] [address] [place] [address] Dr. Jean Crow Glucose [Mass/Vol] 149 mg/dL Critically high 74-106 T [facility] Comment on above: Performed By: #### C VDAGS #### [facility] [address] [place] [address] Dr. Jean Crow Potassium [Moles/Vol] 3.6 mmol/L Normal 3.5-5.1 [facility] Comment on above: Performed By: #### C VDAGS #### [facility] [address] [place] [address] Dr. Jean Crow Protein [Mass/Vol] 7.4 g/dL Normal 6.4-8.2 [facility] Comment on above: Performed By: #### C VDAGS #### [facility] [address] [place] [address] Dr. Jean Crow Sodium [Moles/Vol] 138 mmol/L Normal 136-145 [facility] Comment on above: Performed By: #### C VDAGS #### [facility] [address] [place] [address] Dr. Jean Crow Urea nitrogen [Mass/Vol] 20.0 mg/dL Critically high 7.0-18.0 [facility] Comment on above: Performed By: #### C VDAGS #### [facility] [address] [place] [address] Dr. Jean Crow Urea nitrogen/Creatinine [Mass ratio] 26.0 mg/mg Normal [facility] Comment on above: Performed By: #### C VDAGS #### [facility] [address] [place] [address] Dr. Jean Crow TROPONIN, HIGH SENSITIVITYon 04-09-2022 HSTROP 9.0 pg/mL Normal 4.0-51.3 [facility] Comment on above: Result Comment: CUT- OFF POINTS HAVE BEEN ESTABLISHED BASED ON THE FOURTH UNIVERSAL DEFINITIONS OF MYOCARDIAL INFARCTION. THE UPPER REFERENCE LIMIT (URL) OF TROPONIN, DEFINED THE 99TH PERCENTILE OF cTnI DISTRIBUTION IN A REFERENCE POPULATION, HAS BEEN CONFIRMED THE DECISION THRESHOLD FOR [place] DIAGNOSIS. Performed By: #### C VDAGS #### [facility] [address] [place] [address] Dr. Jean Crow XR CHEST 1 Von 04-09-2022 XR CHEST 1 V EXAMINATION: XR CHEST 1 V HISTORY: CHEST PAIN, UNSPECIFIED , [...] acute cardiopulmonary process. Electronically authenticated by: NHUNG DONG Date: 2022-04-09 13:51 Normal [facility] SARS-CoV-2 (COVID-19) RNA NA A+probe Ql (Resp)on 04-05-2022 SARS-CoV-2 (COVID-19) RNA BRIAN+probe Ql (Unsp spec) Positive [employer] Other BASIC METABOLIC PANELon 12-30 Anion gap [Moles/Vol] 5 mmol/L Low [facility] [employer] Calcium [Mass/Vol] 8.1 mg/dL [facility] Chloride [Moles/Vol] 109 mmol/L High [facility] CO2 [Moles/Vol] 27 mmol/L [facility] Creatinine [Mass/Vol] 0.57 mg/dL [facility] [employer] [facility] GFR COMMENT Average GFR for 60-69 years old = 85. [facility] Comment on above: Chronic Kidney disea se, GFR = <60. Kidney failure, GFR = <15. The GFR estimate is not adjusted for extreme body surface area or acute process, nor has it been validated for women or ethnic groups other than and . GFR/1.73 sq M.predicted among blacks MDRD (S/P/Bld) [Vol rate/Area] 138 mL/min/{1.73_m2} ml/min/1.73sq.m [facility] GFR/1.73 sq M.predicted among non-blacks MDRD (S/P/Bld) [Vol rate/Area] 114 mL/min/{1.73_m2} ml/min/1.73sq.m [facility] Glucose post fast [Mass/Vol] 201 mg/dL High [facility] Comment on above: NORMAL <100 mg/dL PREDIABETES 101-126 mg/dL DIABETES 126 mg/dL or higher Interpretation and review of laboratory results Abnormal [facility] Potassium [Moles/Vol] 3.9 mmol/L [facility] Sodium [Moles/Vol] 141 mmol/L [facility] Urea nitrogen [Mass/Vol] 9 mg/dL [facility] CBC, EDIF, PLATELETon 2021 ABSOLUTE BASOPHIL COUNT 0.0 10*3/uL 0.0 - 0.2 10*3/uL [facility] Basophils/100 WBC (Bld) 0.1 % 0.0 - 2.0 % [facility] Differential cell count method Nom (Bld) AUTO DIFF % [facility] Eosinophils (Bld) [#/Vol] 0.00 10*3/uL 0.0 - 0.7 10*3/uL [facility] Eosinophils/100 WBC (Bld) 0.0 % 0.0 - 11.0 % [facility] Erythrocyte distribution width (RBC) [Ratio] 15.4 % High 11.5 - 14.5 % [facility] Hematocrit (Bld) [Volume fraction] 28.9 % Low 36.0 - 48.0 % [facility] Hemoglobin (Bld) [Mass/Vol] 9.4 g/dL Low [facility] Interpretation and review of laboratory results Abnormal [facility] Lymphocytes (Bld) [#/Vol] 0.90 10*3/uL Low 1.2 - 3.4 10*3/uL [facility] Lymphocytes/100 WBC (Bld) 8.1 % Low 20.0 - 55.0 % [facility] MCH (RBC) [Entitic mass] 29.3 pg 26.0 - 35.[address] [facility] MCHC (RBC) [Mass/Vol] 32.7 g/dL [facility] MCV (RBC) [Entitic vol] 89.[address] [facility] Monocytes (Bld) [#/Vol] 0.4 10*3/uL 0.0 - 0.7 10*3/uL [facility] Monocytes/100 WBC (Bld) 4.2 % 0.0 - 10.0 % [facility] Neutrophils (Bld) [#/Vol] 9.3 10*3/uL High 1.4 - 6.5 10*3/uL [facility] Neutrophils/100 WBC (Bld) 87.6 % High 37.0 - 75.0 % [facility] Platelet mean volume (Bld) [Entitic vol] 7.[address] [facility] Platelets (Bld) [#/Vol] 262 10*3/uL 130.0 - 400.0 10*3/uL [facility] RBC (Bld) [#/Vol] 3.22 10*6/uL Low 4.0 - 5.4 10*6/u L [facility] WBC (Bld) [#/Vol] 10.6 10*3/uL 3.6 - 11.0 10*3/uL [facility] GLUCOSE (POC DEVICE)on 01-24 GLUCOSE, POINT OF CARE [address] [facility] Interpretation and review of laboratory results Abnormal [facility] Operator [id number] [facility] GLUCOSE, POINT OF CARE [address] [facility] Interpretation and review of laboratory results Abnormal [facility] Operator [id number] [facility] GLUCOSE (POC DEVICE)on 01-23 GLUCOSE, POINT OF CARE [address] [facility] Interpretation and review of laboratory results Abnormal [facility] Operator [id number] [facility] GLUCOSE, POINT OF CARE [address] [facility] Interpretation and review of laboratory results Abnormal [facility] Operator [id number] [facility] NOVEL CORONAVIRUS LAB 1 - NA SOPHARYNGEALon 01-23-2022 NARRATIVE -[address] [facility] SARS-CoV-2 (COVID-19) RNA BRIAN+probe Ql (Unsp spec) Not detected NOT DETECTED [facility] Comment on above: Negative results do [...] patient is critically ill or clinically deteriorating. [facility] REPEAT ABO/RH (D) TYPINGon 0 01-23-2022 ABO and Rh group Nom (Bld ) Positive [facility] SCREEN: MRSA ONLY, NARES (IS OLATION SCREEN)on 01-23-2022 MRSA isol Org specific cx Ql (Nose) Not detected NOT DETECTED [facility] STAPHYOCOCCUS AUREUS BY PCR Not detected NOT DETECTED [facility] XR Knee - right 2 Viewson IMPRESSION: [...] soft tissues. IMPRESSION IMPRESSION: Routine postoperative changes. [facility] Radiology Study observation (narrative) [facility] XR Knee - right 2 ViewsOrder ed By: Jade Wesley on 01-23-[address] [facility] Work Phone: CREATININEon 01-09-2022 Creatinine [Mass/Vol] 0.65 mg/dL Normal 0.55-1.02 [facility] Comment on above: Performed By: #### C VDAGS #### [facility] [address] [place] [address] Dr. Jean Crow EGFR-AF QATARI >60 Normal >=60 [facility] Comment on above: Performed By: #### C VDAGS #### [facility] [address], [place] [address] Dr. Jean Crow EGFR-NON AF QATARI >60 Normal >=60 [facility] Comment on above: Performed By: #### C VDAGS #### [facility] [address], [place] [address] Dr. Jean Crow MRI PITUITARY WO W [...] KARSON GARCIA Date: 2022-01-09 21:16 Normal [facility] XR SINUSES 3 VIEWS OR GREATE Venkata [...] by: NHUNG DONG Date: 2022-01-02 07:43 Normal [facility] XR CHEST 2 Von 12-20-2021 XR CHEST [...] JOSHUA ARZATE Date: 2021-12-20 14:10 Normal [facility] COVID Quick Testingon 2021 Result Negative [employer] Other Quick Fluon 12-15-2021 FLUAV Ab CF (S) [Titer] Negative [employer] Other FLUBV Ab CF (S) [Titer] Negative [employer] Other A1C HEMOGLOBINon 11-01-2021 HbA1c (Bld) [Mass fraction] 5.3 % [employer] Other Glucose - FINGER STICKon Glucose [Mass/Vol] 86 mg/dL [employer] Other HbA1c (Bld) [Mass fraction]o n 11-01-2021 A1C HEMOGLOBIN [employer] Other MICRO OTHER TESTSOrdered By: Ainsley Mcpherson on 10-07-2021 Fecal WBC Lactoferrin Positive *ABN* (10/07/21 9:00 AM) Invalid Interpretation Code Negative [facility] CHEMISTRYOrdered By: SYSTEM SYSTEM on [...] [Moles/Vol] 102 mmol/L Normal 101 - 111 mmol/ L [facility] Remisol CO2 [Moles/Vol] 25 mmol/L Normal [...] 137 mmol/L Normal 135 - 145 mmol/L [facility] Remisol Transferrin [Mass/Vol] 346 mg/dL Normal 200 - 370 mg/dL [facility] Urea nitrogen [Mass/Vol] 14 mg/dL Normal 5 - 21 mg/dL [facility]isol Urea nitrogen/Creatinine [Mass ratio] 35 mg/mg High 10 - 20 [facility] Remisol HEMATOLOGYOrdered By: SYSTEM SYSTEM on 10-04-2021 Basophils/100 WBC (Bld) 0.5 % Normal 0.0 - 2.0 % [facility] HemeAutoSS Basophils/Leukocytes Auto (Bld) [Pure # fraction] 0.0 E9/L Normal 0.0 - 0.2 E9/L [facility]eAuto[facility] Eosinophils/100 WBC (Bld) 3.2 % Normal 0.0 - 8.0 % [facility] HemeAutoSS Eosinophils/Leukocyt es Auto (Bld) [Pure # fraction] 0.2 E9/L Normal 0.0 - 0.5 E9/L [facility]eAutoSS Lymphocytes/100 WBC (Bld) 30.6 % Normal 14.0 - 50.0 % [facility] HemeAutoSS Lymphocytes/Leukocyt es Auto (Bld) [Pure # fraction] 1.6 E9/L Normal 1.0 - 4.0 E9/L [facility] HemeAutoSS Monocytes/100 WBC (Bld) 9.2 % Normal 4.0 - 14.0 % [facility] HemeAutoSS Monocytes/Leukocytes Auto (Bld) [Pure # fraction] 0.5 E9/L Normal 0.2 - 1.0 E9/L [facility] HemeAutoSS Neutrophils/100 WBC (Bld) 56.5 % Normal 36.0 - 75.0 % [facility] HemeAutoSS Neutrophils/Leukocyt es Auto (Bld) [Pure # fraction] 2.9 E9/L [...] 5.1 E9/L Normal 4.0 - 11.0 E9/L [facility]SS MRI Shoulder w/o Lefton 08-29 MRI [...] flat. There is a large amount of subacromial/subdelto id bursal fluid extending medially to outside of [...] large displaced labral tear identified. Diffuse labral degeneration/fraying . There appears to be full-thickness cartilage loss [...] by RUTHIE BURRELL on 09/13/2021 1244 Normal [facility] Disability Coordinator XR wrist RT min 3V*on 2021 XR wrist RT min 3V* [facility] [employer] Other XR wrist RT min 3V* [facility] [employer] Other XR wrist RT min 3V* [address] [employer] Other XR wrist RT min 3V* ROHIT Armenta [id number] [place] [employer] Other XR wrist RT min 3V* XRay Report Ritchie [employer] Other XR wrist RT min 3V* Signed [employer] Other XR wrist RT min 3V* Patient: Carolina Gutierrez MR#: [id number] [place] [employer] Other XR wrist RT min 3V* : 1960 Acct:[id number] [employer] Other XR wrist RT min 3V* Age/Sex: 60 / F ADM Date: 08/28/21 [employer] Other XR wrist RT min 3V* Loc: XDUCLY Room: [facility] [employer] Other XR wrist RT min 3V* Attending Dr: Tonia Zavala [facility] [employer] Other XR wrist RT min 3V* Ordering Provider: TONIA ZAVALA [facility] [employer] Other XR wrist RT min 3V* Date of Service: 08/28/21 [employer] Other XR wrist RT min 3V* XR/XR wrist RT min 3V*: Injury of right wrist, initial encounter [employer] Other XR wrist RT min 3V* ([id number]) XR/XR shoulder LT min 2V*: Injury of left shoulder, initial encounter [employer] Other XR wrist RT min 3V* Copies to: TONIA ZAVALA [facility] [employer] Other XR wrist RT min 3V* LEFT SHOULDER - 3views right wrist 4 views. [employer] Other XR wrist RT min 3V* CLINICAL HISTORY: Fell 2 days ago and landed on right wrist and left shoulder. Pain and bruising [employer] Other XR wrist RT min 3V* palmar aspect of right wrist. [employer] Other XR wrist RT min 3V* COMPARISON: None [employer] Other XR wrist RT min 3V* FINDINGS: Left shoulder: Calcifications are seen projecting over the subacromial space and along [employer] Other XR wrist RT min 3V* the acromion. No acute bony process is seen. 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 Visualized left lung field is clear. [employer] Other XR wrist RT min 3V* Right wrist: No focal soft tissue abnormality. No acute bony process. [employer] Other XR wrist RT min 3V* XR/XR shoulder LT min 2V* [employer] Other XR wrist RT min 3V* IMPRESSION: [facility] [employer] Other XR wrist RT min 3V* 1. NO ACUTE BONY PROCESS. [employer] Other XR wrist RT min 3V* 2. DEGENERATIVE CHANGES OF THE GLENOHUMERAL JOINT WITH FLATTENING OF THE HUMERAL HEAD WITH [employer] Other XR wrist RT min 3V* UNDERLYING SCLEROSIS POSSIBLY REPRESENTING UNDERLYING AVASCULAR NECROSIS. [employer] Other XR wrist RT min 3V* 3. CALCIFICATIONS SEEN PROJECTING OVER THE SUBACROMIAL SPACE AND ALONG THE ACROMION WITHOUT DONOR [employer] Other XR wrist RT min 3V* SITE TO SUGGEST FRACTURE. 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 Nor [employer] Other XR wrist RT min 3V* 1. [employer] Other XR wrist RT min 3V* Impression dictated by: Bill Hutchison Jr., D.O.08/28/2021 6:05 PM [employer] Other XR wrist RT min 3V* Dictation Location: [address] [employer] Other XR wrist RT min 3V* Transcribed By: PWS 08/28/21 1805 [employer] Other XR wrist RT min 3V* Dictated By: Bill Hutchison Jr, DO 08/28/21 1744 [employer] Other XR wrist RT min 3V* Signed By: [employer] Other XR wrist RT min 3V* 08/28/21 1805 No rt [employer] Other A1C HEMOGLOBINon 04-05-2021 HbA1c (Bld) [Mass fraction] 6.5 % [place] [employer] Other Glucose - FINGER STICKon Glucose [Mass/Vol] 129 mg/dL [employer] Other HbA1c (Bld) [Mass fraction]o n 04-05-2021 A1C HEMOGLOBIN [employer] Other Eric 03-01-2021 ALT [Catalytic activity/Vol] 18 U/L Normal 7 - 45 [facility] Comment on above: Result Comment: Bibi ents treated with Sulfasalazine may generate falsely decreased results for ALT. Performed By: #### A LT #### [address] [id number] Ana 03-01-2021 AST [Catalytic activity/Vol] 14 U/L Normal 9 - 39 [facility] Comment on above: Performed By: #### A ST #### [address] [id number] CBC AND DIFFERENTIALon 03-01 % AUTOMATED IMMATURE GRAN 3.3 % High 0.0 - 0.9 [facility] Comment on above: Result Comment: Nicole ture Granulocyte Count (IG) includes promyelocytes, myelocytes and metamyelocytes but does not include bands. Percent differential counts (%) should be interpreted in the context of the absolute cell counts (cells/L). Performed By: #### C BCDF #### [address] [id number] Basophils (Bld) [#/Vol] 0.05 10*3/uL Normal 0.00 - 0.10 [facility] Comment on above: Performed By: #### C BCDF #### [address] [id number] Basophils/100 WBC (Bld) 0.3 % Normal 0.0 - 2.0 [facility] Comment on above: Performed By: #### C BCDF #### [address] [id number] Eosinophils (Bld) [#/Vol] 0.08 10*3/uL Normal 0.00 - 0.70 [facility] Comment on above: Performed By: #### C BCDF #### [address] [id number] Eosinophils/100 WBC (Bld) 0.6 % Normal 0.0 - 6.0 [facility] Comment on above: Performed By: #### C BCDF #### [address] [id number] Erythrocyte distribution width (RBC) [Ratio] 17.3 % High 11.5 - 14.5 [facility] Comment on above: Performed By: #### C BCDF #### [address] [id number] Hematocrit (Bld) [Volume fraction] 42.9 % Normal 36.0 - 46.0 [facility] Comment on above: Performed By: #### C BCDF #### [address] [id number] Hemoglobin (Bld) [Mass/Vol] 12.8 g/dL Normal 12.0 - 16.0 [facility] Comment on above: Performed By: #### C BCDF #### [address] [id number] Lymphocytes (Bld) [#/Vol] 2.48 10*3/uL Normal 1.20 - 4.80 [facility] Comment on above: Performed By: #### C BCDF #### [address] [id number] Lymphocytes/100 WBC (Bld) 17.1 % Normal 13.0 - 44.0 [facility] Comment on above: Performed By: #### C BCDF #### [address] [id number] MCHC (RBC) [Mass/Vol] 29.8 g/dL Low 32.0 - 36.0 [facility] Comment on above: Performed By: #### C BCDF #### [address] [id number] MCV (RBC) [Entitic vol] 96 fL Normal 80 - 100 [facility] Comment on above: Performed By: #### C BCDF #### [address] [id number] Monocytes (Bld) [#/Vol] 0.68 10*3/uL Normal 0.10 - 1.00 [facility] Comment on above: Performed By: #### C BCDF #### [address] [id number] Monocytes/100 WBC (Bld) 4.7 % Normal 2.0 - 10.0 [facility] Comment on above: Performed By: #### C BCDF #### [address] [id number] Neutrophils (Bld) [#/Vol] 10.76 10*3/uL High 1.20 - 7.70 [facility] Comment on above: Performed By: #### C BCDF #### [address] [id number] Neutrophils/100 WBC (Bld) 74.0 % Normal 40.0 - 80.0 [facility] Comment on above: Performed By: #### C BCDF #### [address] [id number] Platelets (Bld) [#/Vol] 319 10*3/uL Normal 150 - 450 [facility] Comment on above: Performed By: #### C BCDF #### [address] [id number] RBC 4.49 x10E12/L Normal 4.00 - 5.20 [facility] Comment on above: Performed By: #### C BCDF #### [address] [id number] WBC (Bld) [#/Vol] 14.5 10*3/uL High 4.4 - 11.3 [facility] Comment on above: Performed By: #### C BCDF #### [address] [id number] CREATININEon 03-01-2021 Creatinine [Mass/Vol] 0.81 mg/dL Normal 0.50 - 1.05 [facility] Comment on above: Performed By: #### C REAT #### [address] [id number] GFR- AM. >60 Normal >60 [facility] Comment on above: Result Comment: CALC ULATIONS OF ESTIMATED GFR ARE PERFORMED USING THE MDRD STUDY EQUATION FOR THE IDMS-TRACEABLE CREATININE METHODS. CLIN CHEM 2007;53:766-72 Performed By: #### C REAT #### [address] [id number] GFR-NON AM. >60 Normal >60 [facility] Comment on above: Performed By: #### C REAT #### [address] [id number] SEDIMENTATION RATE, ERYTHROC YTEon 03-01-2021 SEDIMENTATION RATE, ERYTHROCYTE 24 mm/h High 0 - 20 [facility] Comment on above: Performed By: #### E SRWS #### [address] [id number] Lipid Panelon 2020 Cholesterol [Mass/Vol] 191 mg/dL [facility] [employer] Other Cholesterol in HDL [Mass/Vol] 40 mg/dL [employer] Other Cholesterol in LDL Elph Qn 129.8 [employer] Other Cholesterol.total/Ch olesterol in HDL [Mass ratio] 4.8 {ratio} [employer] Other Lipid Panel 106 [employer] Other Lipid Panel 21.2 [employer] Other C-REACTIVE PROTEINon 021 C-REACTIVE PROTEIN 8.32 mg/dL Abnormal [facility] Comment on above: Result Comment: REF VALUE < 1.00 Performed By: #### C RP #### [address] [id number] SEDIMENTATION RATE, ERYTHROC YTEon 08-26-2020 SEDIMENTATION RATE, ERYTHROCYTE 38 mm/h High 0 - 20 [facility] Comment on above: Performed By: #### E SRWS #### [address] [id number] URIC ACIDon 08-26-2020 Urate [Mass/Vol] 2.4 mg/dL Normal 2.3 - 6.7 [facility] Comment on above: Result Comment: Carmella puncture immediately after or during the administration of Metamizole may lead to falsely low results. Testing should be performed immediately prior to Metamizole dosing. Performed By: #### U EMILY #### [address] [id number] POC Glucoseon 05-16-2017 Glucose mass conc 81 mg/dL Invalid Interpretation Code [facility] Work Phone: Interpretation and review of laboratory results Normal Invalid Interpretation Code [facility] Work Phone: Glucose mass conc 81 mg/dL Invalid Interpretation Code 65 - 99 mg/dL [facility] Interpretation and review of laboratory results Normal Invalid Interpretation Code [facility] NM MYOCARDIAL PERFUSION MULT I SPECTon 05-14-2017 NM MYOCARDIAL PERFUSION MULTI SPECT Nuclear Report Pati ent: MATT Manning Med Rec#: [id number] (Age): 1960(56y)Accou nt#: [id number] Height: 149.9(cm)/58(inStudy Date: 05/14/2017 Weight: 90.9(kg)/200(lbRoom# : BSA: 1.85 Type: Outpatient Loc: CILSex: F Indicatio ns: -Abnormal ECG -Pre-op Cardiovascular Exam ICD-10 Diagnosis Codes: -R94.31 Abnormal electrocardiogram [ECG] [EKG]Nuclear Cardiology Conclusion:Probably normal exercise myocardial perfusion with Tc-99m sestamibiimaging. Conclusions :Baseline EKG NSR. With exercise, no diagnostic EKG changes. Poorexercise capacity. Negative, adequate exerciseelectrocardi ogram.Probably normal LV perfusion.Mild fixed decrease inanterior wall uptake with normal wall motion consistent with likelybreast attenuation artifactGeneral History :- Allergic to: Keflex,Pcn - Abnormal EKG - Diabetes - Dizziness -Family history of CAD - Intraoperative cardiac assessment - Other: nausea Medications :- see [facility] in [facility] Exercise Protocol: Fair Total [...] dayrest-stress imaging protocol was followed using Tc-99m sestamibi(Cardiolite ) injected intravenously. For the rest portion of [...] SatMay 14, 2017 11:03:52 AM EST Normal [facility] Comment on above: Order Comment: Reaso n for exam?:pre op, abn ekgInjury/Trauma or Illness?:Illness/OtherHow long have you had these symptoms (acute/chronic)?:UnknownType of Exam?:UnknownAdditional signs and symptoms?:dizziness,nausea,family hx,dm NM Myocardial Perfusion Mult iple SPECTon 05-14-2017 NM Myocardial Perfusion Multiple SPECT Nuclear Report Patient: MATT Manning Med Rec#: [id number] (Age): 1960(56y) Height: 149.9(cm)/58(in Study Date: 05/14/2017 Weight: 90.9(kg)/200(lb Room#: BSA: 1.85 Type: Outpatient Loc: [facility] Sex: F Indications: -Abnormal ECG -Pre-op Cardiovascular Exam ICD-10 Diagnosis Codes: -R94.31 Abnormal electrocardiogram [ECG] [EKG] Nuclear Cardiology Conclusion: Probably normal exercise myocardial perfusion with Tc-99m sestamibi imaging. Conclusions : Baseline EKG NSR. With exercise, no diagnostic EKG changes. Poor exercise capacity. Negative, adequate exercise electrocardiogram.Pr obably normal LV perfusion.Mild fixed decrease in anterior wall uptake with normal wall motion consistent with likely breast attenuation artifact General History : - Allergic to: Keflex,Pcn - Abnormal EKG - Diabetes - Dizziness - Family history of CAD - Intraoperative cardiac assessment - Other: nausea Medications : - see med recon in [facility] Connect Exercise [...] by: Silvana Collazo M.D. Invalid Interpretation Code [facility] NM Myocardial Perfusion Multiple SPECT Interface, Rad In Heartlab Xper [facility] - 05/14/2017 11:05 AM EST Nuclear Report Patient: MATT Manning Med Rec#: [id number] (Age): 1960(56y) Height: 149.9(cm)/58(in Study Date: 05/14/2017 Weight: 90.9(kg)/200(lb Room#: BSA: 1.85 Type: Outpatient Loc: CIL Sex: F Indications: -Abnormal ECG -Pre-op Cardiovascular Exam ICD-10 Diagnosis Codes: -R94.31 Abnormal electrocardiogram [ECG] [EKG] Nuclear Cardiology Conclusion: Probably normal exercise myocardial perfusion with Tc-99m sestamibi imaging. Conclusions : Baseline EKG NSR. With exercise, no diagnostic EKG changes. Poor exercise capacity. Negative, adequate exercise electrocardiogram.Pr obably normal LV perfusion.Mild fixed decrease in anterior wall uptake with normal wall motion consistent with likely breast attenuation artifact General History : - Allergic to: Keflex,Pcn - Abnormal EKG - Diabetes - Dizziness - Family history of CAD - Intraoperative cardiac assessment - Other: nausea Medications : - see med [facility] in [facility] Exercise Protocol: Fair Total [...] by: Silvana Collazo M.D. Invalid Interpretation Code [facility] Basic Metabolic Panelon 11-1 3-2017 Anion gap 8 mmol/L Low 10 - 20 mmol/L [facility] Bicarbonate (HCO3) 32 mmol/L Invalid Interpretation Code 22 - 34 mmol/L [facility] BUN/Creatinine Ratio 25.0 mg/mg High 10.0 - 20.0 [facility] Calcium 9.4 mg/dL Invalid Interpretation Code 8.4 - 10.2 mg/dL [facility] Chloride 103 mmol/L Invalid Interpretation Code 98 - 108 mmol/L [facility] Creatinine 0.64 mg/dL Invalid Interpretation Code 0.4 - 1.1 mg/dL [facility] eGFR (non-black) The eGFR should be used for monitoring renal function only and not for medication dosing. Invalid Interpretation Code [facility] eGFR (non-black) 99 mL/min/{1.73_m2} Invalid Interpretation Code >=60 [facility] Glucose mass conc 96 mg/dL Invalid Interpretation Code 65 - 99 mg/dL [facility] Interpretation and review of laboratory results Abnormal Invalid Interpretation Code [facility] Potassium molar conc 4.1 mmol/L Invalid Interpretation Code 3.5 - 5.1 mmol/L [facility] Sodium 139 mmol/L Invalid Interpretation Code 135 - 145 mmol/L [facility] Urea nitrogen 16 mg/dL Invalid Interpretation Code 8 - 25 mg/dL [facility] CBC Auto Differentialon 05-01 Basophils Auto #/vol (Bld) 0.03 K/mcL Invalid Interpretation Code 0.00 - 0.30 [facility] Basophils/100 WBC Auto (Bld) 0.4 % Invalid Interpretation Code [facility] Eosinophils 0.20 K/mcL Invalid Interpretation Code 0.00 - 0.50 [facility] Eosinophils/100 leukocytes 2.5 % Invalid Interpretation Code [facility] Erythrocyte distribution width Auto Entitic volume (RBC) 14.5 % Invalid Interpretation Code 11.6 - 14.8 % [facility] Erythrocytes (RBC) 4.77 M/mcL Invalid Interpretation Code 4.00 - 5.20 [facility] Hematocrit (HCT) 42.3 % Invalid Interpretation Code 36 - 46 % [facility] Hemoglobin mass conc (Bld) 13.9 g/dL Invalid Interpretation Code 12 - 16 g/dL [facility] Lymphocytes 2.46 K/mcL Invalid Interpretation Code 0.90 - 4.00 [facility] Lymphocytes/100 leukocytes 31.1 % Invalid Interpretation Code [facility] MCH 29.1 pg Invalid Interpretation Code 26 - 34 pg [facility] MCHC mass conc (RBC) 32.9 g/dL Invalid Interpretation Code 31 - 37 g/dL [facility] MCV 88.7 fL Invalid Interpretation Code 80 - 100 fL [facility] Monocytes 0.39 K/mcL Invalid Interpretation Code 0.30 - 0.90 [facility] Monocytes/100 leukocytes 4.9 % Invalid Interpretation Code [facility] Neutrophils 4.82 K/mcL Invalid Interpretation Code 1.70 - 7.00 [facility] Neutrophils/100 WBC Auto (Bld) 61.1 % Invalid Interpretation Code [facility] Nucleated erythrocytes 0.00 K/mcL Invalid Interpretation Code 0.00 - 0.00 [facility] Nucleated erythrocytes/100 erythrocytes 0.0 % Invalid Interpretation Code [facility] Platelet mean volume (PMV) 10.0 fL Invalid Interpretation Code 9 - 15.5 fL [facility] Platelets 219 K/mcL Invalid Interpretation Code 150 - 400 [facility] WBC (Leukocytes) 7.90 K/mcL Invalid Interpretation Code 4.50 - 11.00 [facility] CBC and Differentialon 05-13 Creatinine The following orders were created for panel order CBC and Differential. Procedure Abnormality Status --------- ------ CBC Auto Differential[[id number]] Final result Please view results for these tests on the individual orders. Invalid Interpretation Code [facility] Work Phone: ECG 12 Leadon 05-13-2017 Atrial Rate 80 BPM Invalid Interpretation Code [id number] PAT P [place] 50 degrees Invalid Interpretation Code HLL191 PAT P-R Interval 152 ms Invalid Interpretation Code [id number] PAT Q-T Interval 376 ms Invalid Interpretation Code [id number] PAT QRS Duration 88 ms Invalid Interpretation Code JJH704 PAT QTC Calculation (Bezet) 433 ms Invalid Interpretation Code [id number] PAT R [place] 3 degrees Invalid Interpretation Code [id number] PAT T [place] 165 degrees Invalid Interpretation Code [id number] PAT Ventricular Rate 80 BPM Invalid Interpretation Code [id number] PAT ECG 12 Lead Normal sinus rhythm Possible Left atrial enlargement T wave abnormality, consider anterolateral ischemia Abnormal ECG No previous ECGs available Confirmed by ROSA LAZO D.O. ([id number]) on 05/13/2017 11:26:14 AM Invalid Interpretation Code HGL608 PAT Large Joint Arthro/Inj: L sh oulder joint [facility] Vital Signs Date Time Vital Sign Value Performing Clinician Facility 02-15-2025 07:40-0400 Body mass index (BMI) [Ratio] 38.55 kg/m2 Stevo Neff MD Work Phone: [facility] 02-15-2025 07:40-0400 Body weight 78 kg Stevo Neff MD Work Phone: [facility] 02-15-2025 07:40-0400 Diastolic blood pressure 58 mm[Hg] Stevo Neff MD Work Phone: [facility] 02-15-2025 07:40-0400 Heart rate 85 /min Stevo Neff MD Work Phone: [facility] 02-15-2025 07:40-0400 Systolic blood pressure 101 mm[Hg] Stevo Neff MD Work Phone: [facility] 02-01-2025 11:50-0400 Body mass index (BMI) [Ratio] 34.54 kg/m2 Adam Hernandez MD Work Phone: [facility] 02-01-2025 11:50-0400 Body weight 77.56 kg Adam Hernandez MD Work Phone: [facility] 12-20-2024 12:24-0400 Body height 142.24 cm Santino Moran MD Work Phone: [facility] 12-20-2024 12:24-0400 Body mass index (BMI) [Ratio] 38.1 kg/m2 Santino Moran MD Work Phone: [facility] 12-20-2024 12:24-0400 Body temperature 98.7 [degF] Santino Moran MD Work Phone: [facility] 12-20-2024 12:24-0400 Body weight 77.16 kg Santino Moran MD Work Phone: [facility] 12-20-2024 12:24-0400 Diastolic blood pressure 80 mm[Hg] Santino Moran MD Work Phone: [facility] 12-20-2024 12:24-0400 Heart rate 75 /min Santino Moran MD Work Phone: [facility] 12-20-2024 12:24-0400 Respiratory rate 18 /min Santino Moran MD Work Phone: [facility] 12-20-2024 12:24-0400 SaO2% (BldA) [Mass fraction] 97 % Santino Moran MD Work Phone: [facility] 12-20-2024 12:24-0400 Systolic blood pressure 120 mm[Hg] Santino Mroan MD Work Phone: [facility] 12-08-2024 09:32-0400 Body height 142.24 cm Santino Moran MD Work Phone: [facility] 12-08-2024 09:32-0400 Body mass index (BMI) [Ratio] 38.9 kg/m2 Santino Moran MD Work Phone: [facility] 12-08-2024 09:32-0400 Body temperature 98 [degF] Santino Moran MD Work Phone: [facility] 12-08-2024 09:32-0400 Body weight 78.92 kg Santino Moran MD Work Phone: [facility] 12-08-2024 09:32-0400 Diastolic blood pressure 74 mm[Hg] Santino Moran MD Work Phone: [facility] 12-08-2024 09:32-0400 Heart rate 76 /min Santino Moran MD Work Phone: [facility] 12-08-2024 09:32-0400 Respiratory rate 18 /min Santino Moran MD Work Phone: [facility] 12-08-2024 09:32-0400 SaO2% (BldA) [Mass fraction] 95 % Santino Moran MD Work Phone: [facility] 12-08-2024 09:32-0400 Systolic blood pressure 127 mm[Hg] Santino Moran MD Work Phone: [facility] 11-20-2024 16:07-0400 Body height 142.24 cm Santino Moran MD Work Phone: [facility] 11-20-2024 16:07-0400 Body mass index (BMI) [Ratio] 41.7 kg/m2 Santino Moran MD Work Phone: [facility] 11-20-2024 16:07-0400 Body temperature 98.4 [degF] Santino Moran MD Work Phone: [facility] 11-20-2024 16:07-0400 Body weight 84.36 kg Santino Moran MD Work Phone: [facility] 11-20-2024 16:07-0400 Diastolic blood pressure 62 mm[Hg] Santino Moran MD Work Phone: [facility] 11-20-2024 16:07-0400 Heart rate 61 /min Santino Moran MD Work Phone: [facility] 11-20-2024 16:07-0400 Respiratory rate 18 /min Santino Moran MD Work Phone: [facility] 11-20-2024 16:07-0400 SaO2% (BldA) [Mass fraction] 97 % Santino Moran MD Work Phone: [facility] 11-20-2024 16:07-0400 Systolic blood pressure 138 mm[Hg] Santino Moran MD Work Phone: [facility] 11-11-2024 15:23-0400 Blood Pressure Location Oswald Curry [facility] 11-11-2024 15:23-0400 Diastolic blood pressure 60 mm[Hg] Oswald Curry [facility] 11-11-2024 15:23-0400 Heart rate 75 /min Oswald Curry [facility] 11-11-2024 15:23-0400 Respiratory rate 16 /min Oswald Curry [facility] 11-11-2024 15:23-0400 SaO2% (BldA) [Mass fraction] 96 % Oswald Curry [facility] 11-11-2024 15:23-0400 Systolic blood pressure 120 mm[Hg] Oswald Curry [facility] 09-28-2024 13:41-0400 Blood Pressure Location Oswald Curry [facility] 09-28-2024 13:41-0400 Diastolic blood pressure 68 mm[Hg] Oswald Curry [facility] 09-28-2024 13:41-0400 Heart rate 90 /min Oswald Curry [facility] 09-28-2024 13:41-0400 Respiratory rate 16 /min Oswald Curry [facility] 09-28-2024 13:41-0400 SaO2% (BldA) [Mass fraction] 98 % Oswald Curry [facility] 09-28-2024 13:41-0400 Systolic blood pressure 124 mm[Hg] Oswald Curry [facility] 08-31-2024 10:35-0500 Body mass index (BMI) [Ratio] 36.36 kg/m2 Adam Hernandez MD Work Phone: [facility] 08-31-2024 10:35-0500 Body weight 81.65 kg Adam Hernandez MD Work Phone: [facility] 08-23-2024 14:27-0500 Blood Pressure Location Oswald Curry [facility] 08-23-2024 14:27-0500 Body temperature 98.06 [degF] Oswald [facility] 08-23-2024 14:27-0500 Diastolic blood pressure 90 mm[Hg] Oswald [facility] 08-23-2024 14:27-0500 Heart rate 81 /min Oswald [facility] 08-23-2024 14:27-0500 Respiratory rate 24 /min Oswald [facility] 08-23-2024 14:27-0500 Systolic blood pressure 120 mm[Hg] Oswald [facility] 08-09-2024 11:52-0500 Blood Pressure Location Marcelle Bernal [facility] 08-09-2024 11:52-0500 Body temperature 98.42 [degF] [facility] 08-09-2024 11:52-0500 Diastolic blood pressure 74 mm[Hg] [facility] 08-09-2024 11:52-0500 Heart rate 80 /min Marcelle Moraima[facility] 08-09-2024 11:52-0500 Respiratory rate 18 /min Marcelle Moraima[facility] 08-09-2024 11:52-0500 SaO2% (BldA) [Mass fraction] 94 % Marcelle [facility] 08-09-2024 11:52-0500 Systolic blood pressure 126 mm[Hg] [facility]elle [facility] 06-23-2024 08:01-0500 Blood Pressure Location Oswald Curry [facility] 06-23-2024 08:01-0500 Diastolic blood pressure 82 mm[Hg] Oswald Curry [facility] 06-23-2024 08:01-0500 Heart rate 98 /min Oswald Curry [facility] 06-23-2024 08:01-0500 Respiratory rate 20 /min Oswald Curry [facility] 06-23-2024 08:01-0500 SaO2% (BldA) [Mass fraction] 99 % Oswald Curry [facility] 06-23-2024 08:01-0500 Systolic blood pressure 140 mm[Hg] Oswald Curry [facility] 06-15-2024 13:07-0500 Body mass index (BMI) [Ratio] 41.12 kg/m2 Erik Alejandro MD Work Phone: [facility] 06-15-2024 13:07-0500 Body temperature 98.1 [degF] Erik Alejandro MD Work Phone: [facility] 06-15-2024 13:07-0500 Body weight 83.2 kg Erik Alejandro MD Work Phone: [facility] 06-15-2024 13:07-0500 Diastolic blood pressure 79 mm[Hg] Erik Alejandro MD Work Phone: [facility] 06-15-2024 13:07-0500 Heart rate 77 /min Erik Alejandro MD Work Phone: [facility] 06-15-2024 13:07-0500 Respiratory rate 18 /min Erik Alejandro MD Work Phone: [facility] 06-15-2024 13:07-0500 SaO2% (BldA) [Mass fraction] 97 % Erik Alejandro MD Work Phone: [facility] 06-15-2024 13:07-0500 Systolic blood pressure 118 mm[Hg] Erik Alejandro MD Work Phone: [address]04-2024 13:41-0500 Blood Pressure Location Mohamad Mouchli [facility] 05-04-2024 13:41-0500 Diastolic blood pressure 74 mm[Hg] Mohamad Mouchli [facility] 05-04-2024 13:41-0500 Heart rate 74 /min Mohamad Mouchli [facility] 05-04-2024 13:41-0500 Respiratory rate 16 /min Mohamad Mouchli [facility] 05-04-2024 13:41-0500 Systolic blood pressure 135 mm[Hg] Mohamad Mouchli [facility] 03-30-2024 15:42-0400 Body height 142.2 cm Pacc 2 Work Phone: [facility] 03-30-2024 15:42-0400 Body mass index (BMI) [Ratio] 42.31 kg/m2 Pacc 2 Work Phone: [facility] 03-30-2024 15:42-0400 Body temperature 98.01 [degF] Pacc 2 Work Phone: [facility] 03-30-2024 15:42-0400 Body weight 85.59 kg Pacc 2 Work Phone: [facility] 03-30-2024 15:42-0400 Diastolic blood pressure 74 mm[Hg] Pacc 2 Work Phone: [facility] 03-30-2024 15:42-0400 Heart rate 76 /min Pacc 2 Work Phone: [facility] 03-30-2024 15:42-0400 Respiratory rate 16 /min Pacc 2 Work Phone: [facility] 03-30-2024 15:42-0400 SaO2% (BldA) [Mass fraction] 97 % Pac 2 Work Phone: [facility] 03-30-2024 15:42-0400 Systolic blood pressure 119 mm[Hg] Pac 2 Work Phone: [facility] 03-25-2024 15:42-0400 Body mass index (BMI) [Ratio] 36.96 kg/m2 Adam Hernandez MD Work Phone: [facility] 03-25-2024 15:42-0400 Body weight 83.01 kg Adam Hernandez MD Work Phone: [facility] 03-23-2024 14:02-0400 Blood Pressure Location Oswald Curry [facility] 03-23-2024 14:02-0400 Diastolic blood pressure 80 mm[Hg] Oswald Curry [facility] 03-23-2024 14:02-0400 Heart rate 74 /min Oswald Curry [facility] 03-23-2024 14:02-0400 Respiratory rate 18 /min Oswald Curry [facility] 03-23-2024 14:02-0400 Systolic blood pressure 130 mm[Hg] Oswald Curry [facility] 03-13-2024 08:09-0400 Body height 149.9 cm Louis Cortez DO Work Phone: [facility] 03-13-2024 08:09-0400 Body mass index (BMI) [Ratio] 38.38 kg/m2 Louis Cortez DO Work Phone: [facility] 03-13-2024 08:09-0400 Body weight 86.18 kg Louis Cortez DO Work Phone: [facility] 03-11-2024 15:36-0400 Body mass index (BMI) [Ratio] 38.38 kg/m2 Adam Hernandez MD Work Phone: [facility] 03-11-2024 15:36-0400 Body weight 86.18 kg Adam Hernandez MD Work Phone: [facility] 02-06-2024 15:31-0400 Blood Pressure Location Oswald Curry [facility] 02-06-2024 15:31-0400 Diastolic blood pressure 70 mm[Hg] Oswald Curry [facility] 02-06-2024 15:31-0400 Heart rate 95 /min Oswald Curry [facility] 02-06-2024 15:31-0400 Respiratory rate 18 /min Oswald Curry [facility] 02-06-2024 15:31-0400 SaO2% (BldA) [Mass fraction] 92 % Oswald Curry [facility] 02-06-2024 15:31-0400 Systolic blood pressure 110 mm[Hg] Oswald Curry [facility] 01-27-2024 15:14-0400 Blood Pressure Location [facility] 01-27-2024 15:14-0400 Body temperature 98.24 [degF] [facility] 01-27-2024 15:14-0400 Diastolic blood pressure 82 mm[Hg] [facility] 01-27-2024 15:14-0400 Heart rate 112 /min Albaro Balta[facility] 01-27-2024 15:14-0400 Respiratory rate 18 /min Albaro Baltazar [facility] 01-27-2024 15:14-0400 SaO2% (BldA) [Mass fraction] 96 % [facility] 01-27-2024 15:14-0400 Systolic blood pressure 122 mm[Hg] Albaro Baltazar [facility] 01-24-2024 08:54-0400 Respiratory rate 16 /min Ronobir ISAAC [facility] 01-24-2024 08:49-0400 Heart rate 85 /min Ronobir ISAAC [facility] 01-24-2024 08:49-0400 Respiratory rate 16 /min Ronobir ISAAC [facility] 01-24-2024 08:49-0400 SaO2% (BldA) [Mass fraction] 94 % Ronobir ISAAC [facility] 01-24-2024 08:17-0400 Heart rate 85 /min Ronobir ISAAC [facility] 01-24-2024 08:17-0400 SaO2% (BldA) [Mass fraction] 94 % Ronobir ISAAC [facility] 01-24-2024 08:15-0400 Diastolic blood pressure 71 mm[Hg] Ronobir ISAAC [facility] 01-24-2024 08:15-0400 Mean blood pressure 92 mm[Hg] Ronobir ISAAC [facility] 01-24-2024 08:15-0400 Systolic blood pressure 134 mm[Hg] Ronobir ISAAC [facility] 01-24-2024 08:14-0400 Body temperature 97.52 [degF] Ronobir ISAAC [facility] 01-24-2024 06:30-0400 Hourly Rounding Ronobir ISAAC [facility] 01-24-2024 06:30-0400 Promise to Return Ronobir ISAAC [facility] 01-24-2024 05:42-0400 Hourly Rounding Ronobir ISAAC [facility] 01-24-2024 05:42-0400 Promise to Return Ronobir ISAAC [facility] 01-24-2024 04:44-0400 Hourly Rounding Ronobir ISAAC [facility] 01-24-2024 04:44-0400 Promise to Return Ronobir ISAAC [facility] 01-24-2024 00:00-0400 Diastolic blood pressure 80 mm[Hg] Ronobir ISAAC [facility] 01-24-2024 00:00-0400 Heart rate 98 /min Ronobir ISAAC [facility] 01-24-2024 00:00-0400 Respiratory rate 18 /min Ronobir ISAAC [facility] 01-24-2024 00:00-0400 SaO2% (BldA) [Mass fraction] 96 % Ronobir ISAAC [facility] 01-24-2024 00:00-0400 Systolic blood pressure 129 mm[Hg] Ronobir ISAAC [facility] 01-23-2024 20:00-0400 Body temperature 98.06 [degF] Ronobir ISAAC [facility] 01-23-2024 19:59-0400 Blood Pressure Location Ronobir ISAAC [facility] 01-23-2024 19:59-0400 Diastolic blood pressure 75 mm[Hg] Ronobir ISAAC [facility] 01-23-2024 19:59-0400 Mean blood pressure 90 mm[Hg] Ronobir ISAAC [facility] 01-23-2024 19:59-0400 Systolic blood pressure 119 mm[Hg] Ronobir ISAAC [facility] 01-23-2024 15:25-0400 Mean blood pressure 81 mm[Hg] Ronobir ISAAC [facility] 01-23-2024 15:25-0400 Body temperature 98.42 [degF] Ronobir ISAAC [facility] 01-23-2024 11:00-0400 Body temperature 98.24 [degF] Ronobir ISAAC [facility] 01-23-2024 11:00-0400 gluc 137 mg/dL Ronobir ISAAC [facility] 01-23-2024 11:00-0400 Heart rate 106 /min Ronobir ISAAC [facility] 01-23-2024 07:35-0400 Body temperature 97.52 [degF] Ronobir ISAAC [facility] 01-23-2024 07:35-0400 gluc 125 mg/dL Ronobir ISAAC [facility] 01-23-2024 07:35-0400 Heart rate 108 /min Ronobir ISAAC [facility] 01-23-2024 00:00-0400 Blood Pressure Location Ronobir ISAAC [facility] 01-21-2024 16:03-0400 Mean blood pressure 85 mm[Hg] Ronobir ISAAC [facility] 01-21-2024 16:03-0400 Respiratory rate 18 /min Ronobir ISAAC [facility] 01-21-2024 03:12-0400 Heart rate 72 /min Ronobir ISAAC [facility] 01-21-2024 01:58-0400 Mean blood pressure 83 mm[Hg] Ronobir ISAAC [facility] 01-21-2024 01:58-0400 Respiratory rate 20 /min Ronobir ISAAC [facility] 01-21-2024 01:35-0400 Mean blood pressure 89 mm[Hg] Ronobir ISAAC [facility] 01-21-2024 01:35-0400 Respiratory rate 20 /min Ronobir ISAAC [facility] 01-11-2024 10:00-0400 Hourly Rounding Lalo Oliver [facility] 01-11-2024 10:00-0400 Promise to Return Lalo Oliver [facility] 01-11-2024 09:00-0400 Hourly Rounding Lalo Oliver [facility] 01-11-2024 09:00-0400 Promise to Return Lalo Oliver [facility] 01-11-2024 08:13-0400 Hourly Rounding Lalo Oliver [facility] 01-11-2024 08:13-0400 Promise to Return Lalo Oliver [facility] 01-11-2024 08:13-0400 SaO2% (BldA) [Mass fraction] 96 % Lalo Oliver [facility] 01-11-2024 08:08-0400 Heart rate 94 /min Lalo Oliver [facility] 01-11-2024 08:08-0400 Respiratory rate 18 /min Lalo Lindocker [facility] 01-11-2024 08:08-0400 SaO2% (BldA) [Mass fraction] 96 % Lalo Oliver [facility] 01-11-2024 07:56-0400 Heart rate 88 /min Lalo Oliver [facility] 01-11-2024 07:56-0400 Respiratory rate 18 /min Lalo Oliver [facility] 01-11-2024 07:56-0400 SaO2% (BldA) [Mass fraction] 94 % Lalo Oliver [facility] 01-11-2024 06:55-0400 Body temperature 98.6 [degF] Lalo Oliver [facility] 01-11-2024 06:55-0400 Diastolic blood pressure 55 mm[Hg] Lalo Lindocker [facility] 01-11-2024 06:55-0400 Heart rate 89 /min Lalo Hernandezer [facility] 01-11-2024 06:55-0400 Mean blood pressure 83 mm[Hg] Lalo Oliver [facility] 01-11-2024 06:55-0400 Systolic blood pressure 138 mm[Hg] Lalo Oliver [facility] 01-11-2024 01:14-0400 Body temperature 97.52 [degF] Lalo Oliver [facility] 01-11-2024 01:14-0400 Diastolic blood pressure 66 mm[Hg] Lalo Hernandezer [facility] 01-11-2024 01:14-0400 Respiratory rate 16 /min Lalo Hernandezer [facility] 01-11-2024 01:14-0400 Systolic blood pressure 149 mm[Hg] Lalo Hernandezer [facility] 01-10-2024 20:03-0400 Body temperature 98.06 [degF] Lalo Hernandezer [facility] 01-10-2024 20:03-0400 Diastolic blood pressure 68 mm[Hg] Lalo Boyd [facility] 01-10-2024 20:03-0400 Respiratory rate 16 /min Lalo Boyd [facility] 01-10-2024 20:03-0400 Systolic blood pressure 111 mm[Hg] Lalo Boyd [facility] 01-10-2024 15:52-0400 Mean blood pressure 88 mm[Hg] Lalo Boyd [facility] 01-10-2024 15:51-0400 Body temperature 97.7 [degF] Lalo Boyd [facility] 01-10-2024 11:34-0400 Mean blood pressure 86 mm[Hg] Lalo Hernandezer [facility] 01-10-2024 06:47-0400 Mean blood pressure 86 mm[Hg] Lalo Hernandezer [facility] 01-10-2024 06:00-0400 Blood Pressure Location Lalo Hernandezer [facility] 01-10-2024 00:00-0400 Body temperature 97.7 [degF] Lalo Hernandezer [facility] 01-10-2024 00:00-0400 Mean blood pressure 90 mm[Hg] Lalo Hernandezer [facility] 01-09-2024 11:00-0400 Body temperature 99.14 [degF] Lalo Hernandezer [facility] 01-09-2024 07:52-0400 Heart rate 103 /min Lalo Hernandezer [facility] 01-09-2024 07:30-0400 Blood Pressure Location Lalo Hernandezer [facility] 01-09-2024 00:00-0400 Mean blood pressure 85 mm[Hg] Lalo Hernandezer [facility] 01-08-2024 11:00-0400 Heart rate 111 /min Lalo Hernandezer [facility] 01-08-2024 08:30-0400 Heart rate 91 /min Lalo Lindocker [facility] 01-07-2024 14:39-0400 Hourly Rounding Andrea MARISOL [facility] 01-07-2024 14:39-0400 Promise to Return Andrea MARISOL [facility] 01-07-2024 13:00-0400 Hourly Rounding Andrea MARISOL [facility] 01-07-2024 13:00-0400 Promise to Return Andrea MARISOL [facility] 01-07-2024 12:00-0400 Hourly Rounding Andrea MARISOL [facility] 01-07-2024 12:00-0400 Promise to Return Andrea MARISOL [facility] 01-07-2024 11:54-0400 Respiratory rate 16 /min Andrea MARISOL [facility] 01-07-2024 11:50-0400 Respiratory rate 16 /min Andreanuno QUESADASLIN [facility] 01-07-2024 10:39-0400 Heart rate 103 /min Andreanuno QUESADASLIN [facility] 01-07-2024 10:39-0400 SaO2% (BldA) [Mass fraction] 93 % Andreanuno QUESADASLIN [facility] 01-07-2024 10:39-0400 Body temperature 97.88 [degF] Andreanuno QUESADASLIN [facility] 01-07-2024 10:39-0400 Diastolic blood pressure 82 mm[Hg] Andreanuno QUESADASLIN [facility] 01-07-2024 10:39-0400 Mean blood pressure 97 mm[Hg] Andreanuno QUESADASLIN [facility] 01-07-2024 10:39-0400 Systolic blood pressure 127 mm[Hg] Andreanuno QUESADASLIN [facility] 01-07-2024 08:21-0400 Heart rate 84 /min Andreanuno QUESADASLIN [facility] 01-07-2024 08:21-0400 Respiratory rate 16 /min Andrea MARISOL [facility] 01-07-2024 08:14-0400 Heart rate 85 /min Andrea MARISOL [facility] 01-07-2024 08:14-0400 SaO2% (BldA) [Mass fraction] 96 % Andrea MARISOL [facility] 01-07-2024 07:00-0400 Diastolic blood pressure 97 mm[Hg] Andrea MARISOL [facility] 01-07-2024 07:00-0400 SaO2% (BldA) [Mass fraction] 94 % Andrea MARISOL [facility] 01-07-2024 07:00-0400 Systolic blood pressure 155 mm[Hg] Andrea MARISOL [facility] 01-07-2024 00:42-0400 Body temperature 98.06 [degF] Andrea MARISOL [facility] 01-07-2024 00:42-0400 Diastolic blood pressure 79 mm[Hg] Andrea MARISOL [facility] 01-07-2024 00:42-0400 Mean blood pressure 99 mm[Hg] Andreanuno QUESADASLIN [facility] 01-07-2024 00:42-0400 Systolic blood pressure 138 mm[Hg] Andrea MARISOL [facility] 01-06-2024 15:45-0400 Blood Pressure Location Andreanuno QUESADASLIN [facility] 01-06-2024 15:45-0400 Body temperature 97.7 [degF] Andreanuno QUESADASLIN [facility] 01-06-2024 15:45-0400 Mean blood pressure 98 mm[Hg] Andrea MARISOL [facility] 01-06-2024 11:53-0400 gluc 159 mg/dL Andrea MARISOL [facility] 01-06-2024 11:20-0400 Blood Pressure Location Andrea MARISOL [facility] 01-06-2024 11:20-0400 Body temperature 97.7 [degF] Andrea QUESADASLIN [facility] 01-06-2024 11:20-0400 Mean blood pressure 97 mm[Hg] Andrea QUESADASLIN [facility] 01-06-2024 09:32-0400 gluc 152 mg/dL Andreanuno QUESADASLIN [facility] 01-06-2024 07:45-0400 Blood Pressure Location Andrea DAMNO [facility] 01-06-2024 07:45-0400 Mean blood pressure 105 mm[Hg] Andrea MONTANEZLIN [facility] 01-05-2024 19:27-0400 Mean blood pressure 84 mm[Hg] Andreanuno MONTANEZLIN [facility] 01-05-2024 19:25-0400 Body temperature 97.34 [degF] Andrea DAMON [facility] 01-05-2024 02:20-0400 Heart rate 106 /min Andrea QUESADASLIN [facility] 01-04-2024 21:14-0400 Heart rate 106 /min Andreanuno QUESADASLIN [facility] 01-04-2024 20:30-0400 Respiratory rate 19 /min Andreanuno QUESADASLIN [facility] 01-04-2024 20:00-0400 Respiratory rate 20 /min Andreanuno QUESADASLIN [facility] 01-04-2024 16:48-0400 SaO2% (BldA) [Mass fraction] 92.2 % Andreanuno QUESADASLIN [facility] 01-04-2024 16:09-0400 Heart rate 111 /min Andrea DAMON [facility] 12-29-2023 22:00-0400 Blood Pressure Location Gaston Diane [facility] 12-29-2023 22:00-0400 Diastolic blood pressure 100 mm[Hg] Gaston Diane [facility] 12-29-2023 22:00-0400 Heart rate 120 /min Gaston Diane [facility] 12-29-2023 22:00-0400 Mean blood pressure 118 mm[Hg] Gaston Diane [facility] 12-29-2023 22:00-0400 Respiratory rate 22 /min Gaston Diane [facility] 12-29-2023 22:00-0400 SaO2% (BldA) [Mass fraction] 92 % Gaston Diane [facility] 12-29-2023 22:00-0400 Systolic blood pressure 155 mm[Hg] Gaston Diane [facility] 12-29-2023 21:04-0400 Heart rate 121 /min Gaston Diane [facility] 12-29-2023 21:04-0400 Respiratory rate 20 /min Gaston Diane [facility] 12-29-2023 21:00-0400 Diastolic blood pressure 99 mm[Hg] Gaston Diane [facility] 12-29-2023 21:00-0400 Heart rate 118 /min Gaston Diane [facility] 12-29-2023 21:00-0400 Systolic blood pressure 157 mm[Hg] Gaston Diane [facility] 12-29-2023 20:50-0400 Respiratory rate 20 /min Gaston Diane [facility] 12-29-2023 20:50-0400 SaO2% (BldA) [Mass fraction] 98 % Gaston Diane [facility] 12-29-2023 20:29-0400 Body temperature 97.52 [degF] Gaston Diane [facility] 12-29-2023 20:29-0400 Diastolic blood pressure 83 mm[Hg] Gaston Diane [facility] 12-29-2023 20:29-0400 Heart rate 123 /min Gaston Diane [facility] 12-29-2023 20:29-0400 Respiratory rate 21 /min Gaston Diane [facility] 12-29-2023 20:29-0400 Systolic blood pressure 143 mm[Hg] Gaston Diane [facility] 12-27-2023 15:05-0400 Body temperature 98.06 [degF] [facility] 12-27-2023 15:05-0400 Diastolic blood pressure 84 mm[Hg] [facility] 12-27-2023 15:05-0400 Heart rate 112 /min [facility] 12-27-2023 15:05-0400 SaO2% (BldA) [Mass fraction] 94 % [facility] 12-27-2023 15:05-0400 Systolic blood pressure 136 mm[Hg] Al[facility]o [facility] 12-20-2023 09:04-0400 Body height 142.2 cm Pacc 2 Work Phone: [facility] 12-20-2023 09:04-0400 Body mass index (BMI) [Ratio] 44.53 kg/m2 Pacc 2 Work Phone: [facility] 12-20-2023 09:04-0400 Body temperature 97.2 [degF] Pacc 2 Work Phone: [facility] 12-20-2023 09:04-0400 Body weight 90.1 kg Pacc 2 Work Phone: [facility] 12-20-2023 09:04-0400 Diastolic blood pressure 84 mm[Hg] Pacc 2 Work Phone: [facility] 12-20-2023 09:04-0400 Heart rate 90 /min Pacc 2 Work Phone: [facility] 12-20-2023 09:04-0400 Respiratory rate 16 /min Pacc 2 Work Phone: [facility] 12-20-2023 09:04-0400 SaO2% (BldA) [Mass fraction] 97 % Pacc 2 Work Phone: [facility] 12-20-2023 09:04-0400 Systolic blood pressure 132 mm[Hg] Pacc 2 Work Phone: [facility] 11-07-2023 07:35-0400 Body height 149.86 cm [facility] 11-07-2023 07:35-0400 Body mass index (BMI) [Ratio] 39.6 kg/m2 [facility] 11-07-2023 07:35-0400 Body weight 88.9 kg [facility] 11-07-2023 07:35-0400 Diastolic blood pressure 69 mm[Hg] [facility] 11-07-2023 07:35-0400 Heart rate 85 /min [facility] 11-07-2023 07:35-0400 Respiratory rate 18 /min [facility] 11-07-2023 07:35-0400 SaO2% (BldA) [Mass fraction] 96 % [facility] 11-07-2023 07:35-0400 Systolic blood pressure 118 mm[Hg] [facility] 11-04-2023 08:58-0400 Body height 149.9 cm John Holly MD Work Phone: [facility] 11-04-2023 08:58-0400 Body mass index (BMI) [Ratio] 38.98 kg/m2 John Holly MD Work Phone: [facility] 11-04-2023 08:58-0400 Body weight 87.54 kg John Holly MD Work Phone: [facility] 10-05-2023 14:19-0400 Blood Pressure Location [facility] 10-05-2023 14:19-0400 Body temperature 98.24 [degF] [facility] 10-05-2023 14:19-0400 Diastolic blood pressure 80 mm[Hg] [facility] 10-05-2023 14:19-0400 Heart rate 101 /min [facility] 10-05-2023 14:19-0400 SaO2% (BldA) [Mass fraction] 98 % [facility] 10-05-2023 14:19-0400 Systolic blood pressure 128 mm[Hg] [facility] 09-14-2023 09:47-0400 Blood Pressure Location Serge SLOAN [facility] 09-14-2023 09:47-0400 Body temperature 98.24 [degF] Serge SLOAN [facility] 09-14-2023 09:47-0400 Diastolic blood pressure 76 mm[Hg] Serge SLOAN [facility] 09-14-2023 09:47-0400 Heart rate 97 /min Serge SLOAN [facility] 09-14-2023 09:47-0400 SaO2% (BldA) [Mass fraction] 95 % Serge SLOAN [facility] 09-14-2023 09:47-0400 Systolic blood pressure 116 mm[Hg] Serge SLOAN [facility] 07-24-2023 10:00-0500 Body height 149.86 cm MD Aline Guerrero Work Phone: [facility] 07-24-2023 10:00-0500 Body weight 87.31 kg MD Aline Guerrero Work Phone: [facility] 07-24-2023 10:00-0500 Diastolic blood pressure 102 mm[Hg] MD Aline Guerrero Work Phone: [facility] 07-24-2023 10:00-0500 Systolic blood pressure 145 mm[Hg] MD Aline Guerrero Work Phone: [facility] 02-20-2023 14:49-0400 Body height 149.9 cm Medardo Vuong [employer] Work Phone: [employer] [facility] 02-20-2023 14:49-0400 Body mass index (BMI) [Ratio] 34.95 kg/m2 Medardo Vuong [employer] Work Phone: [employer] [facility] 02-20-2023 14:49-0400 Body temperature 98.6 [degF] Medardo Vuong [employer]IC[employer]ER Work Phone: [facility] [employer] [facility] 02-20-2023 14:49-0400 Body weight 78.5 kg Medardo CASTILLO Work Phone: [facility] [employer] [facility] 12-05-2022 15:33-0400 Blood Pressure Location Teodora Ott [facility] 12-05-2022 15:33-0400 Body temperature 98.06 [degF] Teodora Ott [facility] 12-05-2022 15:33-0400 Diastolic blood pressure 82 mm[Hg] Teodora Ott [facility] 12-05-2022 15:33-0400 Heart rate 81 /min Teodora Ott [facility] 12-05-2022 15:33-0400 Systolic blood pressure 126 mm[Hg] Teodora Ott [facility] 10-05-2022 19:05-0400 Body height 149.86 cm Naomie Berry Other [employer] Other 10-05-2022 19:05-0400 Body mass index (BMI) [Ratio] 39.99 kg/m2 Naomie Berry Other [employer] Other 10-05-2022 19:05-0400 Body temperature 99 [degF] Naomie Berry Other [employer] Other 10-05-2022 19:05-0400 Body weight 89.81 kg Naomie Berry Other [employer] Other 10-05-2022 19:05-0400 Diastolic blood pressure 67 mm[Hg] Naomie Berry Other [employer] Other 10-05-2022 19:05-0400 Respiratory rate 18 /min Naomie Berry Other [employer] Other 10-05-2022 19:05-0400 SaO2% (BldA) [Mass fraction] 96 % Naomie Berry Other [employer] Other 10-05-2022 19:05-0400 Systolic blood pressure 137 mm[Hg] Naomie Berry Other [employer] Other 09-07-2022 01:41-0500 Diastolic blood pressure 96 mm[Hg] Kaylinn Dokken [facility] 09-07-2022 01:41-0500 Heart rate 87 /min Kaylinn Dokken [facility] 09-07-2022 01:41-0500 Mean blood pressure 122 mm[Hg] Kaylinn Dokken [facility] 09-07-2022 01:41-0500 SaO2% (BldA) [Mass fraction] 95 % Kaylinn Dokken [facility] 09-07-2022 01:41-0500 Systolic blood pressure 175 mm[Hg] Kaylinn Dokken [facility] 09-07-2022 01:09-0500 Diastolic blood pressure 78 mm[Hg] Kaylinn Dokken [facility] 09-07-2022 01:09-0500 Heart rate 105 /min Kaylinn Dokken [facility] 09-07-2022 01:09-0500 Mean blood pressure 109 mm[Hg] Kaylinn Dokken [facility] 09-07-2022 01:09-0500 SaO2% (BldA) [Mass fraction] 95 % Kaylinn Dokken [facility] 09-07-2022 01:09-0500 Systolic blood pressure 172 mm[Hg] Kaylinn Dokken [facility] 09-07-2022 00:52-0500 Heart rate 83 /min Kaylinn Dokken [facility] 09-07-2022 00:52-0500 Respiratory rate 22 /min Kaylinn Dokken [facility] 09-07-2022 00:42-0500 Respiratory rate 22 /min Kaylinn Dokken [facility] 09-07-2022 00:42-0500 SaO2% (BldA) [Mass fraction] 98 % Kaylinn Dokken [facility] 09-07-2022 00:32-0500 Respiratory rate 22 /min Kaylinn Dokken [facility] 09-06-2022 23:50-0500 Body temperature 97.88 [degF] Kaylinn Dokken [facility] 09-06-2022 23:50-0500 Diastolic blood pressure 93 mm[Hg] Kaylinn Dokken [facility] 09-06-2022 23:50-0500 Heart rate 75 /min Kaylinn Dokken [facility] 09-06-2022 23:50-0500 Systolic blood pressure 164 mm[Hg] Kaylinn Dokken [facility] 08-31-2022 16:35-0500 Body height 149.86 cm Consuelo Rosales Other [employer] Other 08-31-2022 16:35-0500 Body mass index (BMI) [Ratio] 37.16 kg/m2 Consuelo Rosales Other [employer] Other 08-31-2022 16:35-0500 Body temperature 98.2 [degF] Consuelo Rosales Other [employer] Other 08-31-2022 16:35-0500 Body weight 83.46 kg Consuelo Rosales Other [employer] Other 08-31-2022 16:35-0500 Respiratory rate 18 /min Consuelo Rosales Other [employer] Other 08-31-2022 16:35-0500 SaO2% (BldA) [Mass fraction] 99 % Consuelo Rosales Other [employer] Other 07-24-2022 15:32-0500 Blood Pressure Location Sergeluann SLOAN [facility] 07-24-2022 15:32-0500 Diastolic blood pressure 72 mm[Hg] Sergeluann BELLAG [facility] 07-24-2022 15:32-0500 Heart rate 77 /min Sergeluann BELLAG [facility] 07-24-2022 15:32-0500 Respiratory rate 18 /min Sergeluann BELLAG [facility] 07-24-2022 15:32-0500 SaO2% (BldA) [Mass fraction] 100 % Sergeluann BELLAG [facility] 07-24-2022 15:32-0500 Systolic blood pressure 122 mm[Hg] Serge SLOAN [facility] 06-06-2022 16:17-0500 Body height 149.9 cm Puja Pendleton MD Work Phone: [employer] 06-06-2022 16:17-0500 Body mass index (BMI) [Ratio] 34.94 kg/m2 Puja Pendleton MD Work Phone: [employer] [facility] 06-06-2022 16:17-0500 Body temperature 97.5 [degF] Puja Pendleton MD Work Phone: [employer] [facility] 06-06-2022 16:17-0500 Body weight 78.47 kg Puja Pendleton MD Work Phone: [employer] 05-26-2022 13:50-0500 Body height 149.86 cm Naomie Berry Other [employer] Other 05-26-2022 13:50-0500 Body mass index (BMI) [Ratio] 36.96 kg/m2 Naomie Kristi Other [employer] Other 05-26-2022 13:50-0500 Body temperature 97.1 [degF] Naomie Kristi Other [employer] Other 05-26-2022 13:50-0500 Body weight 83.01 kg Naomie Kristi Other [employer] Other 05-26-2022 13:50-0500 Respiratory rate 19 /min Naomie Kristi Other [employer] Other 05-26-2022 13:50-0500 SaO2% (BldA) [Mass fraction] 90 % Naomiedavid Berry Other [employer] Other 05-22-2022 16:52-0500 Hourly Rounding Andrea MARISOL [facility] 05-22-2022 16:52-0500 Promise to Return Andrea MARISOL [facility] 05-22-2022 16:24-0500 SaO2% (BldA) [Mass fraction] 96 % Andrea MARISOL [facility] 05-22-2022 15:46-0500 Heart rate 80 /min Andrea MARISOL [facility] 05-22-2022 15:46-0500 Respiratory rate 16 /min Andrea MARISOL [facility] 05-22-2022 15:45-0500 Hourly Rounding Andrea MARISOL [facility] 05-22-2022 15:45-0500 Promise to Return Andrea MARISOL [facility] 05-22-2022 15:38-0500 Heart rate 87 /min Andrea MARISOL [facility] 05-22-2022 15:38-0500 Respiratory rate 16 /min Andrea MARISOL [facility] 05-22-2022 15:38-0500 SaO2% (BldA) [Mass fraction] 94 % Andrea MARISOL [facility] 05-22-2022 14:23-0500 Hourly Rounding Andrea MARISOL [facility] 05-22-2022 14:23-0500 Promise to Return Andrea MARISOL [facility] 05-22-2022 11:56-0500 Heart rate 84 /min Andrea MARISOL [facility] 05-22-2022 11:56-0500 Respiratory rate 18 /min Andrea QUESADASLIN [facility] 05-22-2022 11:00-0500 Diastolic blood pressure 74 mm[Hg] Andrea MARISOL [facility] 05-22-2022 11:00-0500 gluc 98 mg/dL Andreanuno QUESADASLIN [facility] 05-22-2022 11:00-0500 SaO2% (BldA) [Mass fraction] 95 % Andreanuno QUESADASLIN [facility] 05-22-2022 11:00-0500 Systolic blood pressure 118 mm[Hg] Andreanuno QUESADASLIN [facility] 05-22-2022 08:00-0500 gluc 78 mg/dL Andreanuno QUESADASLIN [facility] 05-22-2022 07:27-0500 Body temperature 98.06 [degF] Andrea QUESADASLIN [facility] 05-22-2022 07:27-0500 Diastolic blood pressure 67 mm[Hg] Andreanuno QUESADASLIN [facility] 05-22-2022 07:27-0500 Mean blood pressure 80 mm[Hg] Andreanuno QUESADASLIN [facility] 05-22-2022 07:27-0500 Systolic blood pressure 107 mm[Hg] Andrea MARISOL [facility] 05-22-2022 03:44-0500 Blood Pressure Location Andrea MARISOL [facility] 05-22-2022 03:44-0500 Diastolic blood pressure 66 mm[Hg] Andrea MARISOL [facility] 05-22-2022 03:44-0500 Heart rate 107 /min Andrea MARISOL [facility] 05-22-2022 03:44-0500 Systolic blood pressure 107 mm[Hg] Andrea MARISOL [facility] 05-22-2022 03:36-0500 Heart rate 106 /min Andrea MARISOL [facility] 05-22-2022 03:36-0500 Mean blood pressure 77 mm[Hg] Andrea MARISOL [facility] 05-22-2022 03:36-0500 Respiratory rate 23 /min Andrea MARISOL [facility] 05-22-2022 02:06-0500 Heart rate 105 /min Andrea MARISOL [facility] 05-22-2022 02:06-0500 Mean blood pressure 84 mm[Hg] Andrea MARISOL [facility] 05-22-2022 02:06-0500 Respiratory rate 16 /min Andrea MARISOL [facility] 05-22-2022 01:39-0500 Mean blood pressure 98 mm[Hg] Andrea MARISOL [facility] 05-22-2022 00:20-0500 gluc 94 mg/dL Andrea MARISOL [facility] 05-22-2022 00:20-0500 gluc Andrea MARISOL [facility] 05-21-2022 08:58-0500 Blood Pressure Location Lorene Fong [facility] 05-21-2022 08:58-0500 Body temperature 97.7 [degF] Lorene Fong [facility] 05-21-2022 08:58-0500 BP/Pulse Patient Position Lorene Fong [facility] 05-21-2022 08:58-0500 Diastolic blood pressure 87 mm[Hg] Lorene Fong [facility] 05-21-2022 08:58-0500 Heart rate 99 /min Lorene Fong [facility] 05-21-2022 08:58-0500 Mean blood pressure 105 mm[Hg] Lorene Fong [facility] 05-21-2022 08:58-0500 Respiratory rate 16 /min Lorene Fong [facility] 05-21-2022 08:58-0500 SaO2% (BldA) [Mass fraction] 97 % Lorene Fong [facility] 05-21-2022 08:58-0500 Systolic blood pressure 143 mm[Hg] Lorene Fong [facility] 05-21-2022 08:40-0500 Blood Pressure Location [email or web address] [facility] 05-21-2022 08:40-0500 Diastolic blood pressure 75 mm[Hg] Castelan SALAM [facility] 05-21-2022 08:40-0500 Heart rate 101 /min Castelan SALAM [facility] 05-21-2022 08:40-0500 Respiratory rate 16 /min Castelan SALAM [facility] 05-21-2022 08:40-0500 SaO2% (BldA) [Mass fraction] 98 % Castelan SALAM [facility] 05-21-2022 08:40-0500 Systolic blood pressure 144 mm[Hg] Castelan SALAM [facility] 05-21-2022 08:30-0500 Blood Pressure Location Castelan SALAM [facility] 05-21-2022 08:30-0500 Diastolic blood pressure 97 mm[Hg] Castelan SALAM [facility] 05-21-2022 08:30-0500 Heart rate 101 /min Castelan SALAM [facility] 05-21-2022 08:30-0500 Respiratory rate 16 /min Castelan SALAM [facility] 05-21-2022 08:30-0500 SaO2% (BldA) [Mass fraction] 97 % Castelan SALAM [facility] 05-21-2022 08:30-0500 Systolic blood pressure 167 mm[Hg] Castelan SALAM [facility] 05-21-2022 08:25-0500 Blood Pressure Location Castelan SALAM [facility] 05-21-2022 08:25-0500 Diastolic blood pressure 88 mm[Hg] Castelan SALAM [facility] 05-21-2022 08:25-0500 Heart rate 105 /min Castelan SALAM [facility] 05-21-2022 08:25-0500 Respiratory rate 16 /min Castelan SALAM [facility] 05-21-2022 08:25-0500 SaO2% (BldA) [Mass fraction] 96 % Castelan SALAM [facility] 05-21-2022 08:25-0500 Systolic blood pressure 152 mm[Hg] Castelan SALAM [facility] 05-21-2022 08:14-0500 Body temperature 98.42 [degF] Castelan SALAM [facility] 05-21-2022 07:19-0500 Body temperature 97.34 [degF] Castelan SALAM [facility] 05-11-2022 14:11-0500 Diastolic blood pressure 82 mm[Hg] Teodora Tru [facility] 05-11-2022 14:11-0500 Mean blood pressure 100 mm[Hg] Teodora Tru [facility] 05-11-2022 14:11-0500 Systolic blood pressure 136 mm[Hg] Teodora Tru [facility] 05-11-2022 14:06-0500 Blood Pressure Location Teodora Tru [facility] 05-11-2022 14:06-0500 Body temperature 97.16 [degF] Teodora Tru [facility] 05-11-2022 14:06-0500 Diastolic blood pressure 86 mm[Hg] Teodora Tru [facility] 05-11-2022 14:06-0500 Heart rate 81 /min Teodora Tru [facility] 05-11-2022 14:06-0500 Systolic blood pressure 143 mm[Hg] Teodora Tru [facility] 05-02-2022 17:30-0400 Body height 149.86 cm Naomie Berry Other [employer] Other 05-02-2022 17:30-0400 Body mass index (BMI) [Ratio] 36.76 kg/m2 Naomie Berry Other [employer] Other 05-02-2022 17:30-0400 Body temperature 96.9 [degF] Naomie Berry Other [employer] Other 05-02-2022 17:30-0400 Body weight 82.56 kg Naomie Berry Other [employer] Other 05-02-2022 17:30-0400 Respiratory rate 18 /min Naomie Berry Other [employer] Other 05-02-2022 17:30-0400 SaO2% (BldA) [Mass fraction] 99 % Naomie Berry Other [employer] Other 04-15-2022 14:30-0400 Body height 149.86 cm Consuelo Rosales Other [employer] Other 04-15-2022 14:30-0400 Body mass index (BMI) [Ratio] 34.94 kg/m2 Consuelo Rosales Other [employer] Other 04-15-2022 14:30-0400 Body temperature 97.4 [degF] Consuelo Rosales Other [employer] Other 04-15-2022 14:30-0400 Body weight 78.47 kg Consuelo Rosales Other [employer] Other 04-15-2022 14:30-0400 Respiratory rate 18 /min Consuelo Rosales Other [employer] Other 04-15-2022 14:30-0400 SaO2% (BldA) [Mass fraction] 97 % Consuelo Rosales Other [employer] Other 04-05-2022 19:05-0400 Body height 149.86 cm Tonia Zavala Other [employer] Other 04-05-2022 19:05-0400 Body mass index (BMI) [Ratio] 34.53 kg/m2 Tonia Zavala Other [employer] Other 04-05-2022 19:05-0400 Body temperature 98.6 [degF] Tonia Zavala Other [employer] Other 04-05-2022 19:05-0400 Body weight 77.57 kg Tonia Zavala Other [employer] Other 04-05-2022 19:05-0400 Respiratory rate 18 /min Tonia Zavala Other [employer] Other 04-05-2022 19:05-0400 SaO2% (BldA) [Mass fraction] 90 % Tonia Zavala Other [employer] Other 02-15-2022 14:19-0400 Body height 149.9 cm [employer] Work Phone: [employer] 02-15-2022 14:19-0400 Body mass index (BMI) [Ratio] 34.94 kg/m2 Slyce [employer] Work Phone: [employer] 02-15-2022 14:19-0400 Body temperature 98.01 [degF] [employer] Work Phone: [facility] [employer] [facility] 02-15-2022 14:19-0400 Body weight 78.47 kg Medardo LANDISDOG LICENSER Work Phone: [facility] 01-24-2022 12:38-0400 Body temperature 98.71 [degF] Puja Pendleton MD Work Phone: [facility] 01-24-2022 12:38-0400 Diastolic blood pressure 84 mm[Hg] Puja Pendleton MD Work Phone: [facility] 01-24-2022 12:38-0400 Heart rate 96 /min Puja Pendleton MD Work Phone: [facility] 01-24-2022 12:38-0400 Respiratory rate 18 /min Puja Pendleton MD Work Phone: [facility] 01-24-2022 12:38-0400 SaO2% (BldA) [Mass fraction] 96 % Puja Pendleton MD Work Phone: [facility] 01-24-2022 12:38-0400 Systolic blood pressure 162 mm[Hg] Puja Pendleton MD Work Phone: [facility] 01-23-2022 09:47-0400 Body height 149.9 cm Puja Pendleton MD Work Phone: [facility] 01-23-2022 09:47-0400 Body mass index (BMI) [Ratio] 34.42 kg/m2 Puja Pendleton MD Work Phone: [facility] 01-23-2022 09:47-0400 Body weight 77.29 kg Puja Pendleton MD Work Phone: [employer] [facility] 01-11-2022 10:18-0400 Body height 149.9 cm Puja Pendleton MD Work Phone: [facility] 01-11-2022 10:18-0400 Body mass index (BMI) [Ratio] 34.94 kg/m2 Puja Pendleton MD Work Phone: [facility] 07-14-2022 10:18-0400 Body temperature 98.49 [degF] Puja Pendleton MD Work Phone: [employer] 01-11-2022 10:18-0400 Body weight 78.47 kg Puja Pendleton MD Work Phone: [employer] 12-15-2021 17:30-0400 Body height 149.86 cm Consuelo Rosales Other [employer] Other 12-15-2021 17:30-0400 Body mass index (BMI) [Ratio] 32.51 kg/m2 Consuelo Rosales Other [employer] Other 12-15-2021 17:30-0400 Body temperature 98.2 [degF] Consuelo Rosales Other [employer] Other 12-15-2021 17:30-0400 Body weight 73.03 kg Consuelo Rosales Other [employer] Other 12-15-2021 17:30-0400 Respiratory rate 18 /min Consuelo Rosales Other [employer] Other 12-15-2021 17:30-0400 SaO2% (BldA) [Mass fraction] 96 % Consuelo Rosales Other [employer] Other 11-01-2021 16:45-0400 Body height 149.86 cm Tondra Mapus Other [employer] Other 11-01-2021 16:45-0400 Body mass index (BMI) [Ratio] 35.14 kg/m2 Tondra Mapus Other [employer] Other 11-01-2021 16:45-0400 Body weight 78.93 kg Tondra Mapus Other [employer] Other 11-01-2021 16:45-0400 Diastolic blood pressure 73 mm[Hg] Tondra Mapus Other [employer] Other 11-01-2021 16:45-0400 Respiratory rate 16 /min Tondra Mapus Other [employer] Other 11-01-2021 16:45-0400 SaO2% (BldA) [Mass fraction] 98 % Tondra Mapus Other [employer] Other 11-01-2021 16:45-0400 Systolic blood pressure 144 mm[Hg] Tondra Mapus Other [employer] Other 10-13-2021 11:12-0400 Blood Pressure Location Teodorajanee [facility] 10-13-2021 11:12-0400 Body temperature 97.52 [degF] Teodora [facility] 10-13-2021 11:12-0400 Diastolic blood pressure 60 mm[Hg] Teodora [facility] 10-13-2021 11:12-0400 Heart rate 81 /min Teodorajanee [facility] 10-13-2021 11:12-0400 SaO2% (BldA) [Mass fraction] 96 % Teodorajanee [facility] 10-13-2021 11:12-0400 Systolic blood pressure 94 mm[Hg] Teodora [facility] 10-04-2021 15:26-0400 Body temperature 97.88 [degF] [facility]-04[facility]21 15:26-0400 Diastolic blood pressure 90 mm[Hg] [facility] 10-04-2021 15:26-0400 Heart rate 76 /min [facility] 10-04-2021 15:26-0400 Mean blood pressure 116 mm[Hg] [facility] 10-04-2021 15:26-0400 SaO2% (BldA) [Mass fraction] 96 % [facility] 10-04-2021 15:26-0400 Systolic blood pressure 167 mm[Hg] [facility] 10-04-2021 15:00-0400 Respiratory rate 16 /min [facility] 08-28-2021 17:35-0500 Body height 149.86 cm Tonia Zavala Other [facility] [employer] Other 08-28-2021 17:35-0500 Body mass index (BMI) [Ratio] 36.76 kg/m2 Tonia Zavala Other [employer] Other 08-28-2021 17:35-0500 Body temperature 98 [degF] Tonia Zavala Other [employer] Other 08-28-2021 17:35-0500 Body weight 82.56 kg Tonia Zavala Other [employer] Other 08-28-2021 17:35-0500 Diastolic blood pressure 73 mm[Hg] Tonia Zavala Other [employer] Other 08-28-2021 17:35-0500 Respiratory rate 18 /min Tonia Zavala Other [employer] Other 08-28-2021 17:35-0500 SaO2% (BldA) [Mass fraction] 98 % Tonia Zavala Other [employer] Other 08-28-2021 17:35-0500 Systolic blood pressure 154 mm[Hg] Tonia Zavala Other [employer] Other 04-05-2021 17:15-0400 Body height 149.86 cm Jesus Higgins Jr. Other [employer] Other 04-05-2021 17:15-0400 Body mass index (BMI) [Ratio] 38.75 kg/m2 Jesus Higgins Jr. Other [employer] Other 04-05-2021 17:15-0400 Body weight 87.05 kg Jesus Higgins Jr. Other [employer] Other 04-05-2021 17:15-0400 Diastolic blood pressure 77 mm[Hg] Jesus Higgins Jr. Other [employer] Other 04-05-2021 17:15-0400 Respiratory rate 18 /min Jesus Higgins Jr. Other [employer] Other 04-05-2021 17:15-0400 SaO2% (BldA) [Mass fraction] 99 % Jesus Higgins Jr. Other [employer] Other 04-05-2021 17:15-0400 Systolic blood pressure 128 mm[Hg] Jesus Gisela Coronado Other [employer] Other 05-16-2017 15:00-0500 Pulse (Heart Rate) 86 /min Shante Delarosa [facility] Work Phone: 05-16-2017 15:00-0500 Pulse Oximetry 94 % Shante Delarosa [facility] Work Phone: 05-16-2017 15:00-0500 Respiratory Rate 16 /min Shante Delarosa [facility] Work Phone: 05-16-2017 14:45-0500 BP Diastolic 62 mm[Hg] Shante Delarosa [facility] Work Phone: 05-16-2017 14:45-0500 BP Systolic 130 mm[Hg] Shnate Delarosa [facility] Work Phone: 05-16-2017 13:45-0500 Body Temperature 98.4 [degF] Shante Delarosa [facility] Work Phone: 05-13-2017 09:41-0500 BMI (Body Mass Index) 39.99 kg/m2 Rosa Lazo [employer] Work Phone: 05-13-2017 09:41-0500 Body Temperature 97.9 [degF] Rosa Lazo [facility] Work Phone: 05-13-2017 09:41-0500 BP Diastolic 81 mm[Hg] Rosa Lazo [facility] Work Phone: 05-13-2017 09:41-0500 BP Systolic 138 mm[Hg] Rosa Lazo [employer] Work Phone: 05-13-2017 09:41-0500 Height 149.9 cm Rosa Lazo [employer] Work Phone: 05-13-2017 09:41-0500 Pulse (Heart Rate) 81 /min Rosa Lazo [employer] Work Phone: 05-13-2017 09:41-0500 Pulse Oximetry 97 % Rosa Lazo [facility] Work Phone: 05-13-2017 09:41-0500 Weight 89.81 kg Rosa Lazo [facility] Work Phone: Encounters Encounter Date Encounter Type Care Provider Facility Start: 03-12-2025 End: 03-13-2025 Emergency department patient visit SANTINO MORAN Facility:[facility] Start: 03-12-2025 End: 03-15-2025 Refill Gabo Ana [employer]ODU[employer] PROCESSOR.DOG LICENSER Work Phone: Rheumatology Comment on above: Refill Request Start: 02-18-2025 End: 02-18-2025 ambulatory XXXX NONE Facility[place] Start: 02-15-2025 End: 02-15-2025 Patient encounter procedure Stevo Neff MD Work Phone: Rheumatology Comment on above: Rheumatoid arthritis of multiple sites without rheumatoid factor (HCC) (Primary Dx); Postmenopausal osteoporosis of multiple sites; Cyclic citrullinated peptide (CCP) antibody positive; AILEEN positive; Bilateral hand pain; Bilateral chronic knee pain; Chronic ankle pain, bilateral; Elevated sed rate; Elevated LFTs; Vitamin D deficiency; Elevated C-reactive protein (CRP); Secondary osteoarthritis of multiple sites; Family history of rheumatoid arthritis; Long-term use of high-risk medication Start: 02-15-2025 End: 02-15-2025 ambulatory SANTINO M PIERREDash Facility:[facility] Start: 02-11-2025 End: 02-11-2025 ambulatory Santino Moran MD Work Phone: [facility] Work Phone: Start: 02-11-2025 End: 02-11-2025 Departed Referred Ze Francois MD -Lab [facility] Work Phone: Start: 02-08-2025 End: 02-08-2025 ambulatory Maurice Werner DPM Facility:Ortho/Spo rt Med Start: 02-01-2025 End: 02-01-2025 Bamboo flowsheet Adam Hernandez MD Work Phone: [facility] Start: 02-01-2025 End: 02-01-2025 Bamboo flowsheet Adam Hernandez MD Work Phone: [facility] Start: 02-01-2025 End: 02-01-2025 ambulatory ADAM HERNANDEZ Not Available Start: 02-01-2025 End: 02-01-2025 Office outpatient visit 25 minutes Adam Hernandez MD Work Phone: [facility] Comment on above: Pneumonia of left lo wer lobe due to Streptococcus pneumoniae (Primary Dx); Moderate persistent asthma with acute exacerbation (HCC) Start: 12-23-2024 End: 12-23-2024 ambulatory Santino Moran MD Work Phone: [facility] Work Phone: Start: 12-23-2024 End: 12-23-2024 Departed Referred Ze Francois MD -Lab [facility] Work Phone: Start: 12-20-2024 End: 12-20-2024 Patient encounter procedure Marcelle Marcos [employer] PROC[employer] [facility] Work Phone: Start: 12-15-2024 End: 12-17-2024 ambulatory Stevo Neff MD Work Phone: Rheumatology Start: 12-15-2024 End: 12-17-2024 Patient encounter procedure Stevo Neff MD Work Phone: Rheumatology Comment on above: New prescription for rinvog Start: 12-08-2024 End: 12-08-2024 ambulatory Santino Moran MD Work Phone: [facility] Work Phone: Start: 12-08-2024 End: 12-08-2024 Patient encounter procedure Santino Moran MD Work Phone: [facility] Work Phone: Start: 12-03-2024 End: 12-03-2024 ambulatory SANTINO MORAN Facility:[facility] Start: 11-30-2024 End: 12-03-2024 Refill Stevo Neff MD Work Phone: Rheumatology Comment on above: Refill Request Start: 11-22-2024 End: 11-24-2024 Refill Adam Hernandez MD Work Phone: [facility] Comment on above: Seasonal allergic rh initis due to pollen Start: 11-20-2024 End: 11-20-2024 Patient encounter procedure Santino Moran MD Work Phone: [facility] Work Phone: Start: 11-20-2024 End: 11-20-2024 ambulatory Santino Moran MD Work Phone: [facility] Work Phone: Start: 11-20-2024 End: 11-20-2024 ambulatory Santino Moran MD Work Phone: [facility] Work Phone: Start: 11-20-2024 End: 11-20-2024 Patient encounter procedure Santino Moran MD Work Phone: [facility] Work Phone: Start: 11-11-2024 End: 11-11-2024 ambulatory XXXX NONE Facility:[facility] Start: 11-11-2024 End: 11-11-2024 Patient encounter procedure Oswald Curry [facility] Start: 10-28-2024 End: 10-28-2024 ambulatory Ze Francois [facility] Work Phone: Start: 10-28-2024 End: 10-28-2024 Departed Referred Ze Francois MD Work Phone: [facility] [place] Work Phone: Start: 09-28-2024 End: 09-29-2024 ambulatory XXXX NONE Facility:[facility] Start: 09-28-2024 End: 09-29-2024 Patient encounter procedure Oswald Curry [facility] Start: 09-16-2024 End: 09-16-2024 ambulatory Ze Francois [facility] Work Phone: Start: 09-16-2024 End: 09-16-2024 Departed Referred Ze Francois MD Work Phone: [facility] [place] Work Phone: Start: 08-31-2024 End: 08-31-2024 Bamboo flowsjuanita Hernandez MD Work Phone: [facility] Start: 08-31-2024 End: 08-31-2024 Bamboo flowsheet Adam Hernandez MD Work Phone: [facility] Start: 08-31-2024 End: 08-31-2024 Office outpatient visit 25 minutes Adam Hernandez MD Work Phone: [facility] Comment on above: Pneumonia of left lo wer lobe due to Streptococcus pneumoniae (CMS/HCC) (Primary Dx); Recurrent sinus infections; Mild intermittent asthma without complication (CMS/HCC); Severe persistent asthma with (acute) exacerbation (CMS/HCC) Start: 08-31-2024 End: 08-31-2024 ambulatory ADAM HERNANDEZ Not Available Start: 08-23-2024 End: 08-23-2024 ambulatory SELWYN Curry Facility:[facility] Start: 08-23-2024 End: 08-23-2024 Patient encounter procedure Oswald [facility] Start: 08-13-2024 End: 08-14-2024 Refill Ruthie Leblanc MD Work Phone: Rheumatology Comment on above: Refill Request Start: 08-09-2024 End: 08-09-2024 ambulatory Marcelle Bernal Facility:[facility] Start: 08-09-2024 End: 08-09-2024 Patient encounter procedure Marcelle [facility] Start: 08-04-2024 End: 08-05-2024 Refill Stevo Neff MD Work Phone: Rheumatology Comment on above: Refill Request Start: 07-08-2024 End: 07-08-2024 Telephone encounter Erik Alejandro MD Work Phone: Radiation Oncology Comment on above: Appointment Cancelle d Start: 06-29-2024 End: 06-29-2024 Telephone encounter Anna Coffman RN Infectious Disease Comment on above: CoPat Stop Start: 06-29-2024 End: 06-29-2024 Admission to same day surgery center Ros Christianson DO Work Phone: Infectious Disease Comment on above: Infection of prosthe tic joint, subsequent encounter (Primary Dx); MRSA (methicillin resistant Staphylococcus aureus); S/P shoulder surgery Start: 06-29-2024 End: 06-29-2024 ambulatory SANTINO M PIERREDash Facility:[facility] Start: 06-29-2024 End: 06-29-2024 Telemedicine consultation with patient Ros Christianson DO Work Phone: Infectious Disease Start: 06-23-2024 End: 06-23-2024 ambulatory Luke Mireles [facility] Infectious Disease Comment on above: CoPat Management (La b review, vancomycin) Start: 06-23-2024 End: 06-23-2024 Patient encounter procedure Oswald Curry [facility] Start: 06-16-2024 End: 06-16-2024 ambulatory Luke Mireles [facility] Infectious Disease Comment on above: CoPat Management (La b review, vancomycin) Start: 06-15-2024 End: 06-25-2024 Telephone encounter Erik Alejandro MD Work Phone: Radiation Oncology Comment on above: Future Appointment ( Schedule Simulation) Start: 06-15-2024 End: 06-16-2024 ambulatory Kathy Vo RN Radiation Oncology Comment on above: Patient Education Outside Lab Results Start: 06-15-2024 End: 06-15-2024 Patient encounter procedure Erik Alejandro MD Work Phone: Radiation Oncology Comment on above: Skin cancer (Primary Dx) Start: 06-09-2024 End: 06-09-2024 ambulatory Luke Mireles [facility] Infectious Disease Comment on above: CoPat Management (La b review, vancomycin) Start: 06-08-2024 End: 06-09-2024 ambulatory Ros Christianson DO Work Phone: Infectious Disease Comment on above: Outside Lab Results Start: 06-05-2024 End: 06-05-2024 Patient encounter procedure John Holly MD Work Phone: Orthopaedics Comment on above: Failed orthopedic im plant, subsequent encounter (Primary Dx) Start: 06-05-2024 End: 06-05-2024 ambulatory JOHN HOLLY Facility:[facility] Start: 06-05-2024 End: 06-05-2024 Subsequent hospital visit by physician [facility] Work Phone: Radiology Comment on above: Failed orthopedic im plant, subsequent encounter [T84.498D] Start: 06-03-2024 End: 06-03-2024 Subsequent hospital visit by physician [facility] ([facility]-Stat) Work Phone: [facility] Radiology CT Scan Start: 06-02-2024 End: 06-02-2024 ambulatory Luke Mireles [facility] Infectious Disease Comment on above: CoPat Management (La b review, vancomycin) Start: 06-01-2024 End: 06-02-2024 ambulatory Ros Christianson DO Work Phone: Infectious Disease Comment on above: Outside Lab Results Start: 05-27-2024 End: 05-27-2024 ambulatory Luke Mireles [facility] Infectious Disease Comment on above: CoPat Management (La b review, vancomycin) Start: 05-24-2024 End: 05-24-2024 ambulatory [facility] Start: 05-22-2024 End: 05-22-2024 ambulatory Ros Christianson DO Work Phone: Infectious Disease Comment on above: CoPat Agency CoPat Start CoPat Management (Malorie king) Start: 05-21-2024 End: 05-21-2024 ambulatory ROS CHRISTIANSON Facility:[facility] Start: 05-21-2024 End: 05-21-2024 Office outpatient new 60 minutes Ros Christianson DO Work Phone: Infectious Disease Comment on above: Infection of prosthe tic joint, subsequent encounter (Primary Dx); MRSA (methicillin resistant Staphylococcus aureus); S/P shoulder surgery; Dehiscence of operative wound, subsequent encounter; Type 2 diabetes mellitus without complication, without long-term current use of insulin (HCC); S/P reverse total shoulder arthroplasty, left; Rheumatoid arthritis of multiple sites without rheumatoid factor (HCC); Obesity, Class III, BMI >= 40 Start: 05-21-2024 End: 05-21-2024 ambulatory QUALITY ASSURANCE INTERN Berry Beth Facility:[facility] Start: 05-20-2024 End: 05-22-2024 ambulatory Ros Christianson DO Work Phone: Infectious Disease Comment on above: Outside Lab Results Start: 05-18-2024 End: 05-18-2024 ambulatory JOHN HOLLY Facility:[facility] Start: 05-18-2024 End: 05-18-2024 Patient encounter procedure John Holly MD Work Phone: Orthopaedics Comment on above: Failed orthopedic im plant, subsequent encounter (Primary Dx); Rheumatoid arthritis of multiple sites without rheumatoid factor (HCC); Dehiscence of operative wound, initial encounter Start: 05-18-2024 End: 05-18-2024 ambulatory JOHN ENTTAQUERIA Facility:[facility] Start: 05-18-2024 End: 05-18-2024 Subsequent hospital visit by physician [facility] Rad[facility] Comment on above: S/P shoulder surgery [Z98.890] Start: 05-18-2024 End: 06-10-2024 ambulatory QUALITY ASSURANCE INTERN Berry Beth Facility:CD:[id number] Start: 05-13-2024 End: 05-13-2024 Orders Only John Holly MD Work Phone: Orthopaedics Comment on above: S/P shoulder surgery (Primary Dx) Start: 05-11-2024 End: 05-11-2024 Office outpatient visit 25 minutes Kellie Watson MD Work Phone: [facility] Comment on above: Squamous cell carcin 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, including hip (Primary Dx); Impetigo; Actinic keratosis; Encounter for postoperative wound check Start: 05-11-2024 End: 05-11-2024 ambulatory KELLIE WATSON Not Available Start: 05-11-2024 End: 05-11-2024 Bamboo flowsjuanita Watson MD Work Phone: [facility] Start: 05-11-2024 End: 05-13-2024 Bamboteresa flowsjuanita Watson MD Work Phone: [facility] Start: 05-11-2024 End: 05-13-2024 External Result Encounter Kellie Watson MD Work Phone: [facility] External Department Unsolicited Start: 05-11-2024 End: 05-12-2024 Telephone encounter Wong Zamora Research Coordinator Work Phone: Orthopaedics Comment on above: Research Phone Inter view (IRB# [phone] [facility]) Start: 05-04-2024 End: 05-04-2024 Bamboo flowsheet Merline Prieto DISPATCHER CHIEF OIL Work Phone: [facility] Start: 05-04-2024 End: 05-04-2024 Bamboo flowsjuanita Prieto DISPATCHER CHIEF OIL Work Phone: [facility] Start: 05-04-2024 End: 05-04-2024 ambulatory Tammie Cortes Facility:[facility] Start: 05-04-2024 End: 05-04-2024 Patient encounter procedure Tammie Cortes [facility] Start: 05-04-2024 End: 05-04-2024 Office outpatient visit 15 minutes Merline Prieto DISPATCHER CHIEF OIL Work Phone: [facility] Comment on above: Osteoporosis, unspec ified osteoporosis type, unspecified pathological fracture presence (CMS/HCC) (Primary Dx) Start: 05-04-2024 End: 05-04-2024 ambulatory MERLINE PRIETO Not Available Start: 05-01-2024 End: 05-01-2024 ambulatory STEVE GAMBINO Facility:[facility] Start: 05-01-2024 End: 05-01-2024 Postop follow up visit related to original px Steve ROJO Work Phone: Orthopaedics Comment on above: S/P shoulder surgery (Primary Dx) Start: 04-27-2024 End: 04-27-2024 ambulatory QUALITY ASSURANCE INTERN Berry Beth Facility:[facility] Start: 04-24-2024 End: 04-24-2024 Telephone encounter Steve ROJO Work Phone: Orthopaedic Surgery [facility] Start: 04-22-2024 End: 04-22-2024 Postop follow up visit related to original px Steve ROJO Work Phone: Orthopaedics Comment on above: S/P shoulder surgery (Primary Dx); Loose orthopedic implant, subsequent encounter Start: 04-22-2024 End: 04-22-2024 ambulatory STEVE GAMBINO Facility:[facility] Start: 04-22-2024 End: 04-22-2024 Subsequent hospital visit by physician X[facility] Work Phone: Radiology Comment on above: S/P shoulder surgery [Z98.890] Start: 04-16-2024 End: 05-15-2024 ambulatory QUALITY ASSURANCE INTERN Berry L Kirit Facility:CD:[id number] [phone] Start: 04-15-2024 End: 04-15-2024 Evaluation and management of inpatient JOHN ELAYNE Facility:[facility] Start: 04-15-2024 End: 04-20-2024 Telephone encounter Jeny Arriaza APRN.CNP Work Phone: Pain Management Start: 04-14-2024 End: 04-15-2024 Evaluation and management of inpatient JOHN HOLLY Facility:[facility] Start: 04-08-2024 End: 04-08-2024 Telephone encounter John Holly MD Work Phone: Orthopaedics Comment on above: Returning Patient's Call Start: 04-07-2024 End: 04-07-2024 ambulatory JUANA HELLER Facility:[facility] Start: 04-07-2024 End: 04-07-2024 Patient encounter procedure JUANA HELLER [facility] Start: 04-01-2024 End: 04-03-2024 Telephone encounter Steve ROJO Work Phone: Orthopaedics Comment on above: Peer To Peer Consult ation Start: 03-30-2024 End: 03-30-2024 ambulatory BERRY GELLERAB Facility:[facility] Start: 03-30-2024 Encounter for other preprocedural examination JOHN HOLLY [facility] Start: 03-30-2024 End: 03-30-2024 Admission to establishment [place] [id number] Work Phone: Pre Anesthesia Start: 03-30-2024 End: 03-30-2024 ambulatory BERRY BENÍTEZ [facility] Facility:[facility] Start: 03-30-2024 End: 03-30-2024 Anesthesia consultation [facility] Work Phone: Pre Anesthesia Comment on above: Preoperative examina tion (Primary Dx); Type 2 diabetes mellitus without complication, without long-term current use of insulin (HCC); PONV (postoperative nausea and vomiting); Asthma without status asthmaticus without complication, unspecified asthma severity, unspecified whether persistent; Hyperlipidemia, unspecified hyperlipidemia type; Elevated blood pressure reading in office with white coat syndrome, without diagnosis of hypertension; Inappropriate sinus tachycardia (HCC); History of pulmonary embolism; Gastroesophageal reflux disease without esophagitis; 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; Leg swelling; Rheumatoid arthritis of multiple sites without rheumatoid factor (HCC) Start: 03-30-2024 End: 03-30-2024 Preprocedural examination done [place] [id number] Work Phone: [facility] Work Phone: Start: 03-25-2024 End: 03-25-2024 ambulatory ADAM HERNANDEZ Not Available Start: 03-25-2024 End: 03-25-2024 Office outpatient visit 25 minutes Adam Hernandez MD Work Phone: [facility] Comment on above: Severe persistent as thma with (acute) exacerbation (CMS/HCC) (Primary Dx); 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) Start: 03-25-2024 End: 03-25-2024 Pbo diana Hernandez MD Work Phone: [facility] Start: 03-25-2024 End: 03-25-2024 Nichelle flowsjuanita Hernandez MD Work Phone: [facility] Start: 03-24-2024 End: 03-24-2024 ambulatory BERRY BETH Facility:[facility] Start: 03-23-2024 End: 03-23-2024 ambulatory XXXX NONE Facility:[facility] Start: 03-23-2024 End: 03-23-2024 Patient encounter procedure Oswald Curry [facility] Start: 03-13-2024 End: 03-13-2024 Patient encounter procedure Louis Cortez DO Work Phone: [facility] Comment on above: Chronic pain of righ t knee (Primary Dx) Start: 03-13-2024 End: 03-13-2024 ambulatory John Holly MD Work Phone: Orthopaedics Start: 03-11-2024 End: 03-11-2024 ambulatory ADAM HERNANDEZ Not Available Start: 03-11-2024 End: 03-11-2024 Office outpatient visit 15 minutes Adam Hernandez MD Work Phone: [facility] Comment on above: Severe persistent as thma with (acute) exacerbation (CMS/HCC) (Primary Dx) Start: 03-11-2024 End: 03-11-2024 Bamboo flowsheet Adam Hernandez MD Work Phone: [facility] Start: 03-11-2024 End: 03-11-2024 Bamboo flowsheet Adam Hernandez MD Work Phone: [facility] Start: 03-11-2024 End: 03-20-2024 Orders Only Adam Hernandez MD Work Phone: [facility] External Department Unsolicited Start: 03-06-2024 End: 03-06-2024 ambulatory Berry Beth Facility:[facility] Start: 03-03-2024 End: 03-03-2024 ambulatory Oswald Curry Facility:[facility] Start: 03-03-2024 End: 03-03-2024 Patient encounter procedure Oswald Curry [facility] Start: 02-27-2024 End: 02-27-2024 Telephone encounter Stevo Neff MD Work Phone: Rheumatology Comment on above: Medication Authoriza tion ([facility]) Start: 02-07-2024 End: 03-13-2024 ambulatory Lanny Pérez RN Orthopaedics Start: 02-07-2024 Telephone encounter John toure MD Work Phone: Orthopaedics Comment on above: [employer] Start: 02-06-2024 End: 02-06-2024 ambulatory XXXX NONE Facility:[facility] Start: 02-06-2024 End: 02-06-2024 Patient encounter procedure Oswald Curry [facility] Start: 02-04-2024 End: 02-05-2024 Pre-admission assessment Oswald Curry [facility] Start: 01-29-2024 End: 01-29-2024 ambulatory Berry L Kirit Facility:[facility] Start: 01-27-2024 End: 01-27-2024 Patient encounter procedure [facility]o [facility] Start: 01-27-2024 End: 02-26-2024 ambulatory Berry L Kirit Facility:CD:[id number] Start: 01-24-2024 End: 01-24-2024 ambulatory Almaraz Talal Sarmini Facility:[facility] Start: 01-24-2024 End: 01-24-2024 Patient encounter procedure Almaraz Talal Conradmini [facility] Start: 01-21-2024 End: 01-24-2024 Evaluation and management of inpatient DO Shalom [place] Facility:[facility] Start: 01-20-2024 Emergency department patient visit DO Shalom [place]edo Facility:[facility] Start: 01-20-2024 End: 01-24-2024 Evaluation and management of inpatient Halle HOUSTON [facility] Start: 01-17-2024 End: 01-25-2024 Pre-admission assessment Oswald Curry [facility] Start: 01-15-2024 End: 01-15-2024 ambulatory Berry L Kirit Facility:[facility] Start: 01-14-2024 ambulatory ARABELLA Abramsi ty:[facility] Start: 01-13-2024 End: 01-21-2024 ambulatory Berry L Kirit Facility:CD:[id number] Start: 01-10-2024 Telephone encounter Steve ROJO Work Phone: Orthopaedics Start: 01-08-2024 End: 01-11-2024 Evaluation and management of inpatient Lalo Boyd Facility:[facility] Start: 01-08-2024 End: 01-11-2024 Evaluation and management of inpatient Lalo Boyd [facility] Start: 01-07-2024 ambulatory QUALITY ASSURANCE INTERN Berry Gellerab Facil ity:[facility] Start: 01-04-2024 Evaluation and management of inpatient Andrea DAMON Facility:[facility] Start: 01-04-2024 Emergency department patient visit Naveen Martin Facility:[facility] Start: 01-04-2024 End: 01-07-2024 Evaluation and management of inpatient Andrea DAMON [facility] Start: 01-01-2024 Telephone encounter John toure MD Work Phone: Orthopaedics Comment on above: Patient Update Start: 12-31-2023 End: 12-31-2023 ambulatory QUALITY ASSURANCE INTERN Berry L Kirit Facility:[facility] [place] Start: 12-29-2023 End: 12-29-2023 Emergency department patient visit Gaston NaomiYury Contreras [facility] Start: 12-27-2023 End: 12-27-2023 ambulatory Albaro Baltazar Facility:[facility] [place] Start: 12-27-2023 End: 12-27-2023 Patient encounter procedure Albaro [facility] Start: 12-26-2023 Telephone encounter Louis bynum APRN.DOG LICENSER Work Phone: Pre Anesthesia Comment on above: RINVOQ recommendatio ns for upcoming surgery Start: 12-25-2023 End: 02-20-2024 Telephone encounter Louis Cates APRN.DOG LICENSER Work Phone: Pre Anesthesia Comment on above: Medication Problem Start: 12-20-2023 End: 12-20-2023 Admission to establishment [facility] Work Phone: Pre Anesthesia Start: 12-20-2023 End: 12-20-2023 Anesthesia consultation [facility] 2 Work Phone: Pre Anesthesia Comment on above: Pre-op examination ( Primary Dx); Primary basal cell carcinoma (BCC) of right breast; PONV (postoperative nausea and vomiting); Elevated blood pressure reading in office with white coat syndrome, without diagnosis of hypertension; Hyperlipidemia, unspecified hyperlipidemia type; Asthma without status asthmaticus without complication, unspecified asthma severity, unspecified whether persistent; Gastroesophageal reflux disease without esophagitis; Unspecified hypothyroidism; Type 2 diabetes mellitus without complication, without long-term current use of insulin (HCC); Anemia, unspecified type; Rheumatoid arthritis of multiple sites without rheumatoid factor (HCC); Failed orthopedic implant, initial encounter (HCC); History of pulmonary embolism Start: 12-20-2023 End: 12-20-2023 Preprocedural examination done [facility] 2 Work Phone: [facility] Work Phone: Start: 11-27-2023 End: 11-27-2023 ambulatory ARABELLA JEFFREY Facility:[facility] Start: 11-20-2023 Telephone encounter Stevo rosales MD Work Phone: Rheumatology Comment on above: Results (DEXA scan) Start: 11-07-2023 Telephone encounter John toure MD Work Phone: Orthopaedics Comment on above: [employer] - O ther Start: 11-07-2023 End: 11-07-2023 ambulatory [facility] Work Phone: Start: 11-07-2023 End: 11-07-2023 Patient encounter procedure [facility] Work Phone: Start: 2023 End: 2023 ambulatory Berry Beth Facility:[facility] Start: 11-04-2023 ambulatory Lanny Pérez RN Orth opaedics Start: 11-04-2023 End: 11-04-2023 Patient encounter procedure John Holly MD Work Phone: Orthopaedics Comment on above: Loose orthopedic imp lant, subsequent encounter (Primary Dx); S/P reverse total shoulder arthroplasty, left Start: 10-30-2023 Telephone encounter John toure MD Work Phone: Orthopaedics Comment on above: Results Start: 10-26-2023 ambulatory ALINE MARY ANNJESSICA GUERRERO [facility] ity:[facility] Start: 10-18-2023 End: 10-18-2023 ambulatory Berry Beth Facility:[facility] Start: 10-17-2023 Telephone encounter Stevo rosales MD Work Phone: Rheumatology Comment on above: Results Start: 10-14-2023 End: 10-14-2023 Patient encounter procedure John Holly MD Work Phone: Orthopaedics Comment on above: Status post reverse total replacement of left shoulder (Primary Dx); Failed orthopedic implant, initial encounter (HCC) Start: 10-14-2023 End: 10-14-2023 Subsequent hospital visit by physician [facility] Radiology Comment on above: Left shoulder pain, unspecified chronicity [M25.512] Start: 10-09-2023 Orders Only John Holly MD Work Phone: Orthopaedics Comment on above: Left shoulder pain, unspecified chronicity (Primary Dx) Start: 10-05-2023 End: 10-05-2023 ambulatory Rainer Floyd Facility: [place] Start: 10-05-2023 End: 10-05-2023 Patient encounter procedure Rainer Floyd [facility] Start: 10-01-2023 Telephone encounter Stevo rosales MD Work Phone: Rheumatology Comment on above: Appointment; Orders Start: 10-01-2023 End: 10-01-2023 ambulatory Stevo Neff MD Work Phone: Rheumatology Comment on above: Rheumatoid arthritis of multiple sites without rheumatoid factor (HCC) (Primary Dx); Nausea; Cyclic citrullinated peptide (CCP) antibody positive; AILEEN positive; Family history of rheumatoid arthritis; Family history of gout; Secondary osteoarthritis of multiple sites; Rotator cuff arthropathy of left shoulder; Bilateral chronic knee pain; Bilateral hand pain; Bilateral wrist pain; Long-term use of high-risk medication; Vitamin D deficiency; Encounter for long-term (current) use of NSAIDs; Postmenopausal osteoporosis of multiple sites; Personal history of other medical treatment Start: 10-01-2023 End: 10-01-2023 Telemedicine consultation with patient Stevo Neff MD Work Phone: [facility] Start: 09-27-2023 ambulatory ALINE GUERRERO [facility] Start: 09-18-2023 End: 09-18-2023 ambulatory Berry Beth Facility:[facility] Start: 09-14-2023 End: 09-14-2023 ambulatory MAKEDA Stanton Facility: [place] Start: 09-14-2023 End: 09-14-2023 Patient encounter procedure Serge SLOAN [facility] Start: 08-02-2023 End: 08-02-2023 ambulatory Berry Beth Facility:[facility] Start: 07-24-2023 End: 07-24-2023 ambulatory MD Aline Guerrero Work Phone: [facility] Work Phone: Start: 07-24-2023 End: 07-24-2023 Discharged Recurring MD Aline Guerrero Work Phone: [facility] Work Phone: Start: 07-24-2023 End: 07-24-2023 Patient encounter procedure MD Aline Guerrero Work Phone: [facility]- Start: 07-15-2023 Telephone encounter Naty Carpenter [facility] Start: 07-15-2023 End: 07-15-2023 ambulatory STEVO NEFF [place] [employer] Other Start: 07-15-2023 End: 07-15-2023 Patient encounter procedure STEVO NEFF [facility] Start: 06-28-2023 End: 06-28-2023 ambulatory Berry L Kirit Facility: [facility] Start: 05-20-2023 End: 05-21-2023 ambulatory [facility] Facility:[facility] Start: 05-10-2023 End: 05-10-2023 ambulatory Berry L Kirit Facility:[facility] [place] Start: 05-07-2023 End: 05-07-2023 ambulatory Teodora A Tru Facility:[facility] Start: 05-03-2023 End: 05-04-2023 ambulatory [facility] Facility:[facility] Start: 04-23-2023 End: 04-23-2023 ambulatory [facility] Start: 04-21-2023 Refill Stevo Neff MD Work Phone: Rheumatology Comment on above: Refill Request Start: 04-08-2023 End: 04-08-2023 ambulatory Naty Luke Other [facility] Other Start: 04-08-2023 Telephone encounter Nbanigel Luke [facility] Start: 04-01-2023 End: 06-17-2024 Telephone encounter Kellie WILDER [facility] Comment on above: surgery Start: 03-20-2023 End: 03-20-2023 ambulatory Berry L Kirit Facility:[facility] Start: 03-14-2023 Telephone encounter Stevo rosales MD Work Phone: Rheumatology Comment on above: Rinvoq prior auth re newal Start: 02-20-2023 ambulatory MEDARDO YEVGENIY [facility] Start: 02-20-2023 End: 02-20-2023 Office outpatient visit 15 minutes Medardo Yevgeniy [employer] PROCESSOR-DOG LICENSER Work Phone: [facility] Comment on above: Hx of total knee art hroplasty, right (Primary Dx) Start: 02-20-2023 End: 02-20-2023 Subsequent hospital visit by physician Medardo CASTILLO Work Phone: [facility] Rad[facility] Start: 01-14-2023 End: 01-14-2023 ambulatory MD Silvestre Benavides Facility:[facility] Start: 12-05-2022 End: 12-05-2022 Patient encounter procedure Teodora Nigel Ott [facility] Start: 11-19-2022 End: 11-20-2022 ambulatory SILVESTRE BENAVIDES Facility:[facility] Start: 2022 End: 11-06-2022 ambulatory NATY LUKE Facility:[facility] Start: 10-30-2022 End: 10-31-2022 ambulatory SILVESTRE BENAVIDES Facility:[facility] Start: 10-19-2022 End: 10-20-2022 ambulatory SILVESTRE BENAVIDES Facility:[facility] Start: 10-11-2022 End: 10-11-2022 ambulatory Naomie Berry Other [employer] Other Start: 10-11-2022 Telephone encounter [facility]ie [facility] Start: 10-05-2022 End: 10-05-2022 Departed Referred MD Aline Guerrero Work Phone: [facility] [place] Work Phone: Start: 10-05-2022 End: 10-05-2022 ambulatory MD Aline Guerrero Work Phone: [employer] Other Start: 10-05-2022 Office outpatient vi sit 25 minutes Naomie Berry [facility] Start: 09-15-2022 End: 09-16-2022 ambulatory POLY KAM . Facility:[facility] Start: 09-06-2022 End: 09-07-2022 Emergency department patient visit Shalom Toledo [facility] Start: 08-31-2022 End: 08-31-2022 ambulatory Consuelo Rosales Other [employer] Other Start: 08-31-2022 Office outpatient vi sit 25 minutes Consuelo Rosales [facility] Start: 08-27-2022 End: 08-27-2022 ambulatory Naty Luke Other [employer] Other Start: 08-27-2022 Telephone encounter Naty Luke [facility] Start: 08-10-2022 End: 08-11-[address] ALINE GUERRERO . Facility: Start: 07-24-2022 End: 07-24-2022 Patient encounter procedure Serge SLOAN [facility] Start: 07-20-2022 End: 07-20-2022 Patient encounter procedure Serge SLOAN [facility] Start: 07-18-2022 Telephone encounter Stevo rosales MD Work Phone: Rheumatology Comment on above: Medication Problem ( PA for Rinvoq); Medication Authorization Start: 06-06-2022 ambulatory PUJA PENDLETON [facility] Start: 06-06-2022 End: 06-06-2022 Office outpatient visit 15 minutes Puja Pendleton MD Work Phone: [facility] Comment on above: Hx of total knee art hroplasty, right (Primary Dx) Start: 06-04-2022 End: 06-04-2022 Patient encounter procedure Serge SLOAN [facility] Start: 05-26-2022 End: 05-26-2022 ambulatory Naomie Berry Other [employer] Other Start: 05-26-2022 Office outpatient vi sit 15 minutes Naomie Berry [facility] Start: 05-22-2022 ambulatory TONDRA MAPUS Facility:[facility] Start: 05-22-2022 End: 05-22-2022 Observation Andrea Manning MARISOL [facility] Start: 05-21-2022 End: 05-21-2022 Patient encounter procedure Lorene Fong [facility] Start: 05-21-2022 End: 05-21-2022 Patient encounter procedure Flip MONTES [facility] Start: 05-17-2022 End: 05-17-2022 Patient encounter procedure Haim Do [facility] Start: 05-17-2022 Telephone encounter Stevo rosales MD Work Phone: Rheumatology Comment on above: Medication Authoriza tion (Rinvoq-Cuney); Insurance Authorization (Prior Auth Delayed: Patient has an authorization for Prolia on file with an outside facility and provider) Start: 05-15-2022 End: 05-15-2022 ambulatory Tondra Mapus Other [employer] Other Start: 05-15-2022 Telephone encounter Tondra Mapus [facility] Start: 05-11-2022 End: 05-11-2022 Patient encounter procedure Teodora [facility] Start: 05-09-2022 Telephone encounter Stevo rosales MD Work Phone: Rheumatology Comment on above: Results Start: 05-08-2022 Refill Ruthie maza MD Work Phone: Rheumatology Comment on above: Refill Request Start: 05-04-2022 End: 05-04-2022 ambulatory TEE PULIDO Facility:[facility] Start: 05-02-2022 End: 05-02-2022 Patient encounter procedure MD Aline Guerrero Work Phone: [facility] Start: 05-02-2022 End: 05-02-2022 ambulatory MD Aline Guerrero Work Phone: [facility] Work Phone: Start: 05-02-2022 Office outpatient vi sit 15 minutes Naomie Berry [facility] Start: 04-15-2022 Office outpatient vi sit 25 minutes Consuelo Rosales [facility] Start: 04-15-2022 End: 04-15-2022 ambulatory MD Aline Guerrero Work Phone: [facility] Work Phone: Start: 04-15-2022 End: 04-15-2022 Patient encounter procedure MD Aline Guerrero Work Phone: [facility] Start: 04-09-2022 End: 04-09-2022 ambulatory CIARA GALEANO . Facility:[facility] Start: 04-05-2022 End: 04-05-2022 ambulatory Tonia Zavala Other [employer] Other Start: 04-05-2022 Office outpatient vi sit 15 minutes Tonia Zavala [facility] Start: 02-22-2022 End: 03-21-[address] ALINE GUERRERO . 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 Facility:[facility] Start: 12-29-2021 End: 12-30-[address] ALINE GUERRERO . Facility:[facility] Start: 12-20-2021 End: 12-21-[address] ALINE GUERRERO . Facility: Start: 12-15-2021 End: 12-15-2021 ambulatory Consuelo Rosales Other [employer] Other Start: 12-15-2021 Office outpatient vi sit 25 minutes Consuelo Rosales [facility] Start: 11-23-2021 End: 11-23-2021 Patient encounter procedure Teodora Ott [facility] Start: 11-01-2021 (DM) Diabetes Tondra Mapus [facility] Start: 11-01-2021 End: 11-01-2021 ambulatory Tondra Mapus Other [facility] Other Start: 10-13-2021 End: 10-13-2021 Patient encounter procedure Teodora Ott [facility] Start: 10-07-2021 End: 10-07-2021 Lab Drop off Teodora Ott [facility] Start: 10-04-2021 End: 10-04-2021 Patient encounter procedure Haim Do [facility] Start: 08-28-2021 End: 08-28-2021 ambulatory Tonia Zavala Other [facility] Other Start: 08-28-2021 Office outpatient vi sit 15 minutes Tonia Zavala [facility] Start: 04-05-2021 (DM) Diabetes Jesus Higgins Jr. [facility] Start: 05-16-2017 End: 05-16-2017 Ambulatory [facility] Start: 05-16-2017 End: 05-16-2017 Ambulatory Shante Kendy Delarosa Work Phone: [facility] Periop Start: 05-14-2017 End: 05-15-2017 Ambulatory [facility] Start: 05-14-2017 End: 05-15-2017 Ambulatory [facility] Start: 05-14-2017 End: 05-15-2017 Ambulatory [facility] Start: 05-14-2017 End: 05-14-2017 Ambulatory [facility] Work Phone: [facility] Nuclear Medicine Start: 05-13-2017 End: 05-17-2017 Ambulatory [facility] Start: 05-13-2017 Patient encounter Shante sales Work Phone: [facility] Preadmission Testing Start: 11-24-2015 End: 11-24-2015 Telephone encounter Katja Adams [employer] PROCESSOR.DOG LICENSER Work Phone: Endocrinology Comment on above: Patient Question; Re sults Procedures Date Procedure Procedure Detail Performing Clinician Start: 11-20-2024 X-ray of left knee, four views Santino mosher MD Work Phone: Start: 06-15-2024 C-reactive protein Ros Christianson DO Work Phone: Start: 06-15-2024 CBC + DIFF Ros Meghan DO Work Phone: Start: 06-15-2024 Comprehensive metabolic 2000 panel - Serum or Plasma Ros Meghan DO Work Phone: Start: 06-15-2024 VANCOMYCIN PRE DOSE Ros Meghan DO Work Phone: Start: 06-08-2024 C-reactive protein Ros Meghan DO Work Phone: Start: 06-08-2024 CBC + DIFF Ros Meghan DO Work Phone: Start: 06-08-2024 VANCOMYCIN PRE DOSE Ros Meghan DO Work Phone: Start: 06-05-2024 Radex shoulder complete minimum 2 views John Holly MD Work Phone: Start: 06-03-2024 Ct upper extremity w/o contrast material John Holly MD Work Phone: Start: 06-01-2024 C-reactive protein Ros Meghan DO Work Phone: Start: 06-01-2024 CBC + DIFF Ros Meghan DO Work Phone: Start: 06-01-2024 Comprehensive metabolic 2000 panel - Serum or Plasma Ros Meghan DO Work Phone: Start: 06-01-2024 VANCOMYCIN PRE DOSE Ros Meghan DO Work Phone: Start: 05-20-2024 C-reactive protein Ros Meghan DO Work Phone: Start: 05-20-2024 CBC + DIFF Ros Meghan DO Work Phone: Start: 05-20-2024 Comprehensive metabolic 1999 panel - Serum or Plasma Ros Meghan DO Work Phone: Start: 05-20-2024 GENTAMICIN RANDOM Ros Meghan DO Work Phone: Start: 05-20-2024 SED RATE WESTERGREN Ros Meghan DO Work Phone: Start: 05-18-2024 Radex shoulder complete minimum 2 views John Holly MD Work Phone: Start: 05-11-2024 Cul bact xcpt urine blood/stool aerobic isol Kellie Watson MD Work Phone: Start: 04-22-2024 Radex shoulder complete minimum 2 views Steve ROJO Work Phone: Start: 04-14-2024 Antibody screen JOHN HOLLY Comment on above: Order Comment: Specimen Type: BLOOD SPEC IMEN Ordering Facility: [facility] Address: [address] [place] [address] Performed By: #### T SCR #### [facility] CLIA [id number] [address] [place] [address] Start: 03-13-2024 Radiologic examination knee 3 views Louis Cortez DO Work Phone: Start: 03-11-2024 Allergen spec ige crude allergen extract each Adam Hernandez MD Work Phone: Start: 03-11-2024 Assay of gammaglobulin iga igd igg igm each Adam Hernandez MD Work Phone: Start: 03-11-2024 Complete blood count with white cell differential, automated Adam Hernandez MD Work Phone: Start: 03-11-2024 PNEUMOCOCCAL AB (23 SEROTYPE) Adam linda MD Work Phone: Start: 12-20-2023 Ecg routine ecg w/least 12 lds i&r only [facility] Provider Start: 10-14-2023 Cell count misc body fluids w/differential count John Holly MD Work Phone: Start: 10-14-2023 Crystal id light microscopy chirag tiss/any fluid John Holly MD Work Phone: Start: 10-14-2023 SYNOVIAL FLUID MANUAL DIFF John Hill i, MD Work Phone: Start: 10-14-2023 Arthrocentesis aspir&/inj major jt/bursa w/o us John Holly MD Work Phone: Start: 10-14-2023 Radex shoulder complete minimum 2 views John Holly MD Work Phone: Start: 08-06-2023 End: 08-06-2023 Ophth medical xm&eval comprhnsv estab pt 1/> Bilateral posterior capsular opacification Sintia Grande DO Work Phone: Comment on above: Bilateral posterior capsular opacificati on (Primary Dx) Start: 10-05-2022 Urine culture MD Aline Guerrero Work Phone: Start: 05-21-2022 Esophagogastroduodenoscopy gastric outlet reduction Lorene Fong Start: 05-02-2022 Plain chest X-ray MD Aline Guerrero Work Phone: Start: 04-15-2022 Plain chest X-ray MD Aline Guerrero Work Phone: Start: 01-24-2022 Gluc bld gluc mntr dev cleared fda spec home use Puja Pendleton MD Work Phone: Start: 01-24-2022 Gluc bld gluc mntr dev cleared fda spec home use Puja Pendleton MD Work Phone: Start: 01-24-2022 Basic metabolic panel calcium total Andrea Bedolla MD Work Phone: Start: 01-24-2022 Complete blood count with white cell differential, automated Medardo Vuong [employer] PROCESS[employer]-DOG LICENSER Work Phone: Start: 01-23-2022 Gluc bld gluc mntr dev cleared fda spec home use Puja Pendleton MD Work Phone: Start: 01-23-2022 Gluc bld gluc mntr dev cleared fda spec home use Puja Pendleton MD Work Phone: Start: 01-23-2022 Radiologic examination knee 1/2 views Medardo Vuong [employer] PROCESSOR-DOG LICENSER Work Phone: Start: 01-23-2022 Cul bact paulo aerobic isol xcpt ur blood/stool Puja Pendleton MD Work Phone: Start: 01-23-2022 End: 01-23-2022 Arthrp kne condyle&platu medial&lat compartments Puja Pendleton MD Work Phone: Start: 01-23-2022 Blood group typing, RH phenotyping Puja Pendleton MD Work Phone: Start: 01-23-2022 Cultyp nuc acid amp prb cult/isolate ea orgnism Andrea Bedolla MD Work Phone: Start: 01-23-2022 Sars-cov-2 detection by dna/rna Andrea sutherland MD Work Phone: Start: 05-09-2021 Colonoscopy Sintia Grande DO Work Phone: Start: 05-09-2021 Colonoscopy Teodora Currymetz Start: 05-09-2021 Esophagogastroduodenoscopy Teodora albert Start: 06-01-2020 Mammography Sintia Fabianmillie DO Work Phone: Start: 04-19-2020 Microscopic observation [Identifier] in Cervix by Cyto stain Adam Hernandez MD Work Phone: Start: 05-16-2017 End: 05-16-2017 LEFT FOOT HARDWARE REMOVAL Shante Delarosa Work Phone: Start: 01-27-2010 Colonoscopy Katja Adams [employer] PROCESSOR.DOG LICENSER Work Phone: Arthroplasty of knee Haim Do Cholecystectomy Haim joe Extraction of cataract Parmjitot marshall Do Comment on above: bilateral Foot repair Haim Draper cz Hysterectomy Haim Draper cz Shoulder region stru cture (body structure) STEVO GLEASONI Tonsillectomy & nathalie oidectomy age 11/> Shalom [place] Plan of Treatment Date Care Activity Detail Author Start: 03-12-2035 Urine microalbumin profile DTaP,Tdap,Td Vaccine (2 - Td or Tdap) [facility] Start: 05-09-2031 Screening for malign ant neoplasm of colon [facility] Start: 02-14-2026 End: 02-14-2026 Patient encounter procedure 02/14/2026 9:00 AM EDT Office Visit Rheumatology [address] [facility] [address] [place] [address] Stevo Neff MD [address] [place] [address] RTC after DXA- 6-12 mo f/u Rheumatology Comment on above: RTC after DXA- 6-12 mo f/u Start: 01-31-2026 End: 01-31-2026 Patient encounter procedure 01/31/2026 11:40 AM EDT Office Visit [facility] [facility] [address] [place] [phone] Adam Hernandez MD [address] [place] [address] [facility] Start: 11-01-2025 End: 11-01-2025 Patient encounter procedure [facility] Start: 05-07-2025 DIABETES SCREEN DIABETES SCREEN [facility] Start: 05-07-2025 Diabetes Screening Diabetes Screenin g [facility] Start: 03-22-2025 End: 03-22-2025 ambulatory 03/22/2025 9:00 AM EDT Results Only [facility] [address] [place] [address] labs [facility] Comment on above: labs Start: 03-18-2025 End: 12-16-2025 25-hydroxyvitamin D3 [Mass/volume] in Serum or Plasma VITAMIN D 25 HYDROXY Lab Routine Vitamin D deficiency Expected: 03/18/2025 (Approximate), Expires: 12/16/2025 [facility] Comment on above: Expected: 03/18/2025 (Approximate), Expires: 12/16/2025 Start: 03-18-2025 End: 12-16-2025 C reactive protein [Mass/volume] in Serum or Plasma C-REACTIVE PROTEIN Lab Routine Elevated sed rate Elevated C-reactive protein (CRP) Expected: 03/18/2025 (Approximate), Expires: 12/16/2025 [facility] Comment on above: Expected: 03/18/2025 (Approximate), Expires: 12/16/2025 Start: 03-18-2025 End: 12-16-2025 CBC panel - Blood by Automated count COMPLETE BLOOD COUNT Lab Routine Anemia of chronic disease Expected: 03/18/2025 (Approximate), Expires: 12/16/2025 [facility] Comment on above: Expected: 03/18/2025 (Approximate), Expires: 12/16/2025 Start: 03-18-2025 End: 12-16-2025 Comprehensive metabolic 2000 panel - Serum or Plasma COMPREHENSIVE METABOLIC PANEL Lab Routine Elevated LFTs Expected: 03/18/2025 (Approximate), Expires: 12/16/2025 [facility] Work Phone: Comment on above: Expected: 03/18/2025 (Approximate), Expires: 12/16/2025 Start: 03-18-2025 End: 12-16-2025 Erythrocyte sedimentation rate SEDIMENTATION RATE, WESTERGREN Lab Routine Elevated sed rate Elevated C-reactive protein (CRP) Expected: 03/18/2025 (Approximate), Expires: 12/16/2025 [facility] Comment on above: Expected: 03/18/2025 (Approximate), Expires: 12/16/2025 Start: 03-01-2025 Influenza vaccination Influenza Vacc ine (#1) [facility] Start: 02-15-2025 End: 02-15-2025 Patient encounter procedure 02/15/2025 7:40 AM EDT Office Visit Rheumatology [address] [place] [address] Stevo Neff MD [address] [place] [address] Just routine and new prescriptions doing good Rheumatology Comment on above: Just routine and new prescriptions doing good Start: 01-04-2025 End: 01-04-2025 Patient encounter procedure 01/04/2025 10:20 AM EDT Office Visit [facility] [address] [place] [phone] Adam Hernandez MD [address] [place] [address] [facility] Start: 12-23-2024 [facility] Start: 11-20-2024 X-ray of left knee, four views XR knee LT 4V* [facility] Start: 11-04-2024 Advance Directive Discussion Advance Directive Discussion [facility] Start: 11-04-2024 Screening for osteoporosis Bone Density Screening [facility] Start: 09-27-2024 Hemoglobin A1c measurement HbA1C [facility] Start: 08-31-2024 End: 08-31-2025 CBC W Auto Differential panel - Blood CBC and differential Lab Routine Pneumonia of left lower lobe due to Streptococcus pneumoniae (CMS/HCC) Recurrent sinus infections Expected: 08/31/2024 (Approximate), Expires: 08/31/2025 [facility] Comment on above: Expected: 08/31/2024 (Approximate), Expires: 08/31/2025 Start: 08-31-2024 End: 08-31-2025 Diphtheria / Tetanus Antibody Panel Diphtheria / Tetanus Antibody Panel Lab Routine Pneumonia of left lower lobe due to Streptococcus pneumoniae (CMS/HCC) Recurrent sinus infections Expected: 08/31/2024 (Approximate), Expires: 08/31/2025 [facility] Comment on above: Expected: 08/31/2024 (Approximate), Expires: 08/31/2025 Start: 08-31-2024 End: 08-31-2025 IgA [Mass/volume] in Serum or Plasma IgA Lab Routine Pneumonia of left lower lobe due to Streptococcus pneumoniae (CMS/HCC) Recurrent sinus infections Expected: 08/31/2024 (Approximate), Expires: 08/31/2025 [facility] Comment on above: Expected: 08/31/2024 (Approximate), Expires: 08/31/2025 Start: 08-31-2024 End: 08-31-2025 IgE [Units/volume] in Serum or Plasma IgE Lab Routine Pneumonia of left lower lobe due to Streptococcus pneumoniae (CMS/HCC) Recurrent sinus infections Expected: 08/31/2024 (Approximate), Expires: 08/31/2025 [facility] Comment on above: Expected: 08/31/2024 (Approximate), Expires: 08/31/2025 Start: 08-31-2024 End: 08-31-2025 IgG [Mass/volume] in Serum or Plasma IgG Lab Routine Pneumonia of left lower lobe due to Streptococcus pneumoniae (CMS/HCC) Recurrent sinus infections Expected: 08/31/2024 (Approximate), Expires: 08/31/2025 [facility] Work Phone: Comment on above: Expected: 08/31/2024 (Approximate), Expires: 08/31/2025 Start: 08-31-2024 End: 08-31-2025 IgM [Mass/volume] in Serum or Plasma IgM Lab Routine Pneumonia of left lower lobe due to Streptococcus pneumoniae (CMS/HCC) Recurrent sinus infections Expected: 08/31/2024 (Approximate), Expires: 08/31/2025 [facility] Comment on above: Expected: 08/31/2024 (Approximate), Expires: 08/31/2025 Start: 08-31-2024 End: 08-31-2025 Tetanus toxoid, IgG Tetanus toxoid, IgG Lab Routine Pneumonia of left lower lobe due to Streptococcus pneumoniae (CMS/HCC) Recurrent sinus infections Expected: 08/31/2024 (Approximate), Expires: 08/31/2025 [facility] Comment on above: Expected: 08/31/2024 (Approximate), Expires: 08/31/2025 Start: 08-31-2024 End: 08-31-2024 Patient encounter procedure 08/31/2024 10:40 AM EST Office Visit [facility] [address] [place] [phone] Adam Hernandez MD [address] [place] [address] Arrived [facility] Comment on above: Arrived Start: 08-04-2024 End: 08-04-2025 25-hydroxyvitamin D3 [Mass/volume] in Serum or Plasma VITAMIN D 25 HYDROXY Lab Routine Vitamin D deficiency Expected: 08/04/2024 (Approximate), Expires: 08/04/2025 [facility] Comment on above: Expected: 08/04/2024 (Approximate), Expires: 08/04/2025 Start: 08-04-2024 End: 08-04-2025 BLOOD TB SCREEN BLOOD TB SCREEN Lab Routine Screening-pulmonary TB Expected: 08/04/2024 (Approximate), Expires: 08/04/2025 [facility] Comment on above: Expected: 08/04/2024 (Approximate), Expires: 08/04/2025 Start: 08-04-2024 End: 08-04-2025 C reactive protein [Mass/volume] in Serum or Plasma C-REACTIVE PROTEIN Lab Routine Elevated sed rate Elevated C-reactive protein (CRP) Expected: 08/04/2024 (Approximate), Expires: 08/04/2025 [facility] Comment on above: Expected: 08/04/2024 (Approximate), Expires: 08/04/2025 Start: 08-04-2024 End: 08-04-2025 CBC panel - Blood by Automated count COMPLETE BLOOD COUNT Lab Routine Anemia of chronic disease Expected: 08/04/2024 (Approximate), Expires: 08/04/2025 [facility] Comment on above: Expected: 08/04/2024 (Approximate), Expires: 08/04/2025 Start: 08-04-2024 End: 08-04-2025 Chronic hepatitis differentiation between hepatitis B and C virus panel - Serum or Plasma HEP REMOTE PANEL BL Lab Routine Elevated LFTs Expected: 08/04/2024 (Approximate), Expires: 08/04/2025 [facility] Comment on above: Expected: 08/04/2024 (Approximate), Expires: 08/04/2025 Start: 08-04-2024 End: 08-04-2025 Comprehensive metabolic 2000 panel - Serum or Plasma COMPREHENSIVE METABOLIC PANEL Lab Routine Elevated LFTs Expected: 08/04/2024 (Approximate), Expires: 08/04/2025 [facility] Work Phone: Comment on above: Expected: 08/04/2024 (Approximate), Expires: 08/04/2025 Start: 08-04-2024 End: 08-04-2025 Erythrocyte sedimentation rate SEDIMENTATION RATE, WESTERGREN Lab Routine Elevated sed rate Elevated C-reactive protein (CRP) Expected: 08/04/2024 (Approximate), Expires: 08/04/2025 [facility] Comment on above: Expected: 08/04/2024 (Approximate), Expires: 08/04/2025 Start: 07-13-2024 End: 07-13-2024 Patient encounter procedure Radiation Oncology Comment on above: SIM - RT LOWER LEG, CONSENT SIGNED SIM RT Lower Leg FATEMEH SIM - RT LOWER LEG E LECTRON SETUP Start: 07-06-2024 End: 07-06-2024 Patient encounter procedure 07/06/2024 12:00 PM EST Office Visit Radiation Oncology [address] [place] [address] Erik Alejandro MD [address] [place] [address] sim Rt lower leg, Consent signed, clinical set-up afterwards Radiation Oncology Comment on above: sim Rt lower leg, Co nsent signed, clinical set-up afterwards Start: 06-20-2024 Hemoglobin A1c measurement HbA1C [facility] Start: 06-15-2024 End: 06-15-2024 Patient encounter procedure 06/15/2024 1:00 PM EST Office Visit Radiation Oncology [address] [place] [address] Erik Alejandro MD [address] [place] [address] Kellie Watson DX: 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, including hip Radiation Oncology Comment on above: Ref by Dr Kellie Cooley tti DX: 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, including hip Start: 06-11-2024 End: 06-11-2024 Patient encounter procedure 06/11/2024 8:40 AM EST Office Visit [facility] [address] [place] [phone] Britt Valadez, [employer] PROC[employer]OR-[employer]OG LIC[employer]ER [address] [place] [address] [facility] Start: 06-05-2024 End: 06-05-2024 Patient encounter procedure 06/05/2024 1:45 PM EST Office Visit Orthopaedics [address] [place] [address] John Holly MD [address] [place] [address] post op DOS 04/14 Orthopaedics Comment on above: post op DOS 04/14 Start: 06-03-2024 End: 06-03-2024 Patient encounter procedure 06/03/2024 6:30 PM EST Appointment [facility] [place] Scan [address] [place] [address] CT HUMERUS WO [facility] LEFT [facility] Radiology CT Scan Comment on above: CT HUMERUS WO IVCON LEFT Start: 05-27-2024 End: 05-27-2024 Patient encounter procedure 05/27/2024 1:00 PM EST Office Visit Radiation Oncology [address] [place] [address] Tianna Dunham MD [address] [place] [address] Kellie Watson DX: 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, including hip Radiation Oncology Comment on above: Ref by Dr Kellie Cooley tti DX: 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, including hip Start: 05-22-2024 End: 05-22-2024 ambulatory 05/22/2024 4:15 PM EST Results Only [facility] [address] [place] [address] [place] [facility] Start: 05-21-2024 End: 08-20-2024 CREATININE BLD CREATININE BLD Lab Routine MRSA (methicillin resistant Staphylococcus aureus) Expected: 05/21/2024, Expires: 08/20/2024 [facility] Work Phone: Comment on above: Expected: 05/21/2024 , Expires: 08/20/2024 Start: 05-18-2024 End: 05-18-2024 Patient encounter procedure [facility] Comment on above: left shoulder wound check - ok per lanny Start: 05-04-2024 End: 05-04-2024 Patient encounter procedure 05/04/2024 9:45 AM EST Office Visit [facility] [address] [place] [address] [address] [place] [address] Merline Prieto, DISPATCHER [employer] [address] [facility] [address] [place] [address] Osteoporosis, unspecified osteoporosis type, unspecified pathological fracture presence (CMS/HCC) (Primary Dx) [facility] Comment on above: Osteoporosis, unspec ified osteoporosis type, unspecified pathological fracture presence (CMS/HCC) (Primary Dx) Start: 04-29-2024 End: 04-29-2024 Patient encounter procedure 04/29/2024 11:00 AM EDT Office Visit Orthopaedics [address] [place] [address] [place] [address] [place] [id number] post op DOS 04/14 Orthopaedics Comment on above: post op DOS 04/14 Start: 04-27-2024 End: 04-27-2024 Patient encounter procedure 04/27/2024 8:00 AM EDT Office Visit [facility] [address] [place] [address] [address] [place] [address] Merline Prieto, DISPATCHER [employer] [address] [facility] [address] [place] [address] [facility] Start: 04-22-2024 End: 04-22-2024 Patient encounter procedure Radiology Comment on above: S/P shoulder surgery [Z98.890]; Loose orthopedic implant, subsequent encounter [T84.039D] XR FIRST post op DOS 04/14 Start: 04-14-2024 End: 04-14-2024 Patient encounter procedure 04/14/2024 2:00 PM EDT Office Visit Rheumatology [address] [place], [place] [phone] Stevo Neff MD [address] [facility] [place] [address] RA fu OV 6months Rheumatology Comment on above: RA fu OV 6months Start: 04-14-2024 End: 04-14-2024 Admission to same day surgery center Admitting Comment on above: REVISION JOINT TOTAL SHOULDER REMOVAL OF PROSTHESI S, INCLUDES DEBRIDEMENT AND SYNOVECTOMY WHEN PERFORMED; HUMERAL AND GLENOID COMPONENTS (EG, TOTAL SHOULDER) Start: 04-14-2024 End: 04-14-2024 Arthroplasty glenohumeral joint total shoulder REVISION JOINT TOTAL SHOULDER Status post reverse total replacement of left shoulder 04/14/2024 7:15 AM EDT [facility] Start: 04-14-2024 End: 04-14-2024 Prosthesis removal humeral and glenoid component [facility] Start: 04-14-2024 Subsequent hospital visit by physician Admitting Comment on above: 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] Start: 04-01-2024 End: 04-01-2024 Anesthesia consultation 04/01/2024 1:40 PM EDT PAT Pre Anesthesia [address] [place] [address] pre op DOS 04/14 Pre Anesthesia Comment on above: pre op DOS 04/14 Start: 03-30-2024 End: 06-29-2024 Hemoglobin A1c in Blood [facility] Work Phone: Comment on above: Expected: 03/30/2024 , Expires: 06/29/2024 Start: 03-25-2024 End: 03-25-2024 Patient encounter procedure 03/25/2024 3:20 PM EDT Office Visit [facility] [address] [place] [address] Adam Hernandez MD [address] [place] [address] [facility] Start: 03-25-2024 End: 03-25-2025 Strep pneumoniae antibody serotypes Strep pneumoniae antibody serotypes Lab Routine 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 Work Phone: Comment on above: Expected: 03/25/2024 (Approximate), Expires: 03/25/2025 Start: 03-13-2024 End: 06-12-2024 Basic metabolic 2000 panel - Serum or Plasma BASIC METABOLIC PANEL Lab Routine Status post reverse total replacement of left shoulder Expected: 03/13/2024, Expires: 06/12/2024 [facility] Comment on above: Expected: 03/13/2024 , Expires: 06/12/2024 Start: 03-13-2024 End: 06-12-2024 CBC W Auto Differential panel - Blood COMPLETE BLOOD COUNT AND DIFFERENTIAL Lab Routine Status post reverse total replacement of left shoulder Expected: 03/13/2024, Expires: 06/12/2024 [facility] Work Phone: Comment on above: Expected: 03/13/2024 , Expires: 06/12/2024 Start: 03-13-2024 End: 03-13-2024 Patient encounter procedure 03/13/2024 8:15 AM EDT Office Visit [facility] [address] [place] [address] Louis Cortez DO [address] [place] [address] [facility] Start: 03-11-2024 End: 03-11-2024 Patient encounter procedure 03/11/2024 8:00 AM EDT Office Visit Orthopaedics [address] [place] [address] Steve Gambino PA [address] [id number] POST OP Orthopaedics Comment on above: POST OP Start: 03-01-2024 Covid-19 Vaccine () Covid-19 Vaccine () [facility] Start: 03-01-2024 Covid-19 Vaccine ( season) Covid-19 Vaccine ( season) [facility] Start: 03-01-2024 Influenza vaccination [facility] Start: 02-12-2024 End: 02-12-2024 Patient encounter procedure 02/12/2024 11:00 AM EDT Office Visit Orthopaedics [address] [place] [address] Steve Gambino PA [address] [address] post op DOS 01/27 Orthopaedics Comment on above: post op DOS 01/27 Start: 02-07-2024 End: 05-08-2024 Basic metabolic 2000 panel - Serum or Plasma BASIC METABOLIC PANEL Lab Routine 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 orthopedic implant, initial encounter (HCC) Loose orthopedic implant, subsequent encounter Expected: 02/07/2024, Expires: 05/08/2024 [facility] Work Phone: Comment on above: Expected: 02/07/2024 , Expires: 05/08/2024 Start: 01-28-2024 End: 01-28-2024 Admission to same day surgery center 01/28/2024 7:45 AM EDT - 01/28/2024 1:25 PM EDT Surgery Admitting [address] [place] [address] John Holly MD [address] [place], [place] [id number] REMOVAL IMPLANT DEEP Admitting Comment on above: REMOVAL IMPLANT DEEP Start: 01-28-2024 End: 01-28-2024 Removal implant deep REMOVAL IMPLANT DEEP 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 orthopedic implant, initial encounter (HCC) 01/28/2024 7:45 AM EDT [facility] Start: 01-28-2024 Subsequent hospital visit by physician 01/28/2024 7:45 AM EDT Hospital Encounter Admitting [address] [place] [address] John Holly MD [address] [place], [place] [phone] 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] Admitting Comment on above: 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] Start: 01-28-2024 End: 01-28-2024 Unlisted procedure shoulder INSERT CEMENT SPACER SHOULDER 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 orthopedic implant, initial encounter ([facility]) 01/28/2024 7:45 AM EDT [facility] Start: 01-20-2024 End: 01-20-2024 Patient encounter procedure 01/20/2024 10:00 AM EDT Office Visit Orthopaedics [address] [place], [place] [id number] Steve Gambino PA [address] [place] [address] post op DOS 01/06 Orthopaedics Comment on above: post op DOS 01/06 Start: 01-07-2024 End: 01-07-2024 Admission to same day surgery center Admitting Comment on above: REVISE TOTAL SHOULDE R ARTHROPLASTY INCL ALLOGRAFT WHEN PERFORMED HUMERAL AND GLENOID COMPONENT REMOVAL IMPLANT DEEP Start: 01-07-2024 End: 01-07-2024 Removal implant deep REMOVAL IMPLANT DEEP 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 orthopedic implant, initial encounter ([facility]) 01/07/2024 10:45 AM EDT [facility] Start: 01-07-2024 End: 01-07-2024 Marvin shoulder arthrplsty humeral&glenoid compnt REVISE TOTAL SHOULDER ARTHROPLASTY INCL ALLOGRAFT WHEN PERFORMED HUMERAL AND GLENOID COMPONENT 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 orthopedic implant, initial encounter ([facility]) 01/07/2024 10:45 AM EDT [facility] Start: 01-07-2024 Subsequent hospital visit by physician Admitting Comment on above: 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] Start: 01-07-2024 End: 01-07-2024 Unlisted procedure shoulder INSERT CEMENT SPACER SHOULDER 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 orthopedic implant, initial encounter ([facility]) 01/07/2024 10:45 AM EDT [facility] Start: 12-20-2023 End: 03-20-2024 Hemoglobin A1c in Blood [facility] Work Phone: Comment on above: Expected: 12/20/2023 , Expires: 03/20/2024 Start: 12-20-2023 End: 03-20-2024 STAPHYLOCOCCUS AUREUS & MRSA SCREEN, PCR, NASAL [facility] Comment on above: Expected: 12/20/2023 , Expires: 03/20/2024 Start: 12-18-2023 End: 12-18-2023 Anesthesia consultation 12/18/2023 1:00 PM EDT PAT Pre Anesthesia [address] [place] [place] [address] 2, [facility] [place] [address] [place] [address] pre op DOS 7/9 Pre Anesthesia Comment on above: pre op DOS 7/9 Start: 11-04-2023 End: 02-03-2024 Basic metabolic 2000 panel - Serum or Plasma BASIC METABOLIC PANEL Lab Routine 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 orthopedic implant, initial encounter ([facility]) Expected: 11/04/2023, Expires: 02/03/2024 [facility] Comment on above: Expected: 11/04/2023 , Expires: 02/03/2024 Start: 11-04-2023 End: 02-03-2024 CBC W Auto Differential panel - Blood COMPLETE BLOOD COUNT AND DIFFERENTIAL Lab Routine 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 orthopedic implant, initial encounter ([facility]) Expected: 11/04/2023, Expires: 02/03/2024 [facility] Work Phone: Comment on above: Expected: 11/04/2023 , Expires: 02/03/2024 Start: 11-04-2023 End: 11-04-2023 Patient encounter procedure 11/04/2023 9:00 AM EDT Office Visit Orthopaedics [address] [address] John Holly MD [address] [place], [place] [id number] left shoulder pain/ discuss shoulder revision Orthopaedics Comment on above: left shoulder pain/ discuss shoulder revision Start: 10-26-2023 End: 10-26-2023 Patient encounter procedure 10/26/2023 8:30 AM EDT Appointment [facility]iology [facility] Scan [address] [place] [address] Left shoulder [facility] Radiology CT Scan Comment on above: Left shoulder Start: 10-14-2023 End: 01-13-2024 Bacteria identified in Body fluid by Culture [facility] Work Phone: Comment on above: Expected: 10/14/2023 , Expires: 01/13/2024 Start: 10-14-2023 End: 01-13-2024 CBC W Auto Differential panel - Blood COMPLETE BLOOD COUNT AND DIFFERENTIAL Lab Routine Status post reverse total replacement of left shoulder Expected: 10/14/2023, Expires: 01/13/2024 [facility] Work Phone: Comment on above: Expected: 10/14/2023 , Expires: 01/13/2024 Start: 10-02-2023 End: 10-02-2023 Patient encounter procedure 10/02/2023 8:00 AM EDT Office Visit [facility] [address] [place] [address] Merline Prieto NP [address] [place] [address] [facility] Start: 09-25-2023 End: 09-25-2023 Patient encounter procedure 09/25/2023 7:30 AM EDT Procedure Visit [facility] [place], [address] [place] [address] [facility] Start: 09-17-2023 End: 09-17-2023 Patient encounter procedure 09/17/2023 1:30 PM EDT Office Visit [facility] [address] [place] [address] Rosa Dunbar DO [address] [place] [address] [facility] Start: 09-11-2023 End: 09-11-2023 Patient encounter procedure 09/11/2023 7:30 AM EDT Procedure Visit [facility] [place], DO [address] [place] [address] [facility] Start: 07-01-2023 Behavioral Health Screening Behavioral Health Screening [facility] Start: 07-01-2023 Depression Assessment Depression Ass essment [facility] Start: 04-19-2023 Screening for malign ant neoplasm of cervix [facility] Start: 03-01-2023 Covid-19 Vaccine ( season) Covid-19 Vaccine ( season) [facility] Start: 03-01-2023 Covid-19 Vaccine () Covid-19 Vaccine () [facility] Start: 03-01-2023 Influenza vaccination INFLUENZA VACC INE (#1) [facility] Start: 01-31-2023 End: 01-31-2023 Patient encounter procedure 01/31/2023 Office Visit Orthopaedics Medardo Vuong, [employer] PROCESSOR-DOG LICENSER [address] [place] [address] [facility] Start: 10-05-2022 Bacteria identified in Urine by Culture [facility] Start: 08-09-2022 End: 05-09-2023 25-hydroxyvitamin D3 [Mass/volume] in Serum or Plasma VITAMIN D 25 HYDROXY Lab Routine Vitamin D deficiency Expected: 08/09/2022 (Approximate), Expires: 05/09/2023 [facility] Work Phone: Comment on above: Expected: 08/09/2022 (Approximate), Expires: 05/09/2023 Start: 08-09-2022 End: 05-09-2023 C reactive protein [Mass/volume] in Serum or Plasma C-REACTIVE PROTEIN (CRP) Lab Routine Elevated sed rate Elevated C-reactive protein (CRP) Expected: 08/09/2022 (Approximate), Expires: 05/09/2023 [facility] Work Phone: Comment on above: Expected: 08/09/2022 (Approximate), Expires: 05/09/2023 Start: 08-09-2022 End: 05-09-2023 CBC panel - Blood by Automated count CBC Lab Routine Anemia of chronic disease Expected: 08/09/2022 (Approximate), Expires: 05/09/2023 [facility] Work Phone: Comment on above: Expected: 08/09/2022 (Approximate), Expires: 05/09/2023 Start: 08-09-2022 End: 05-09-2023 Comprehensive metabolic 2000 panel - Serum or Plasma COMP METABOLIC PANEL Lab Routine Elevated LFTs Expected: 08/09/2022 (Approximate), Expires: 05/09/2023 [facility] Work Phone: Comment on above: Expected: 08/09/2022 (Approximate), Expires: 05/09/2023 Start: 08-09-2022 End: 05-09-2023 Erythrocyte sedimentation rate SED RATE WESTERGREN Lab Routine Elevated sed rate Elevated C-reactive protein (CRP) Expected: 08/09/2022 (Approximate), Expires: 05/09/2023 [facility] Work Phone: Comment on above: Expected: 08/09/2022 (Approximate), Expires: 05/09/2023 Start: 07-21-2022 Hemoglobin A1c measurement HbA1C [facility] Start: 07-01-2022 DEPRESSION ASSESSMENT DEPRESSION ASS ESSMENT [facility] Start: 05-30-2022 End: 05-30-2022 Patient encounter procedure 05/30/2022 Office Visit Orthopaedics Puja Pendleton MD [address] [place] [address] [facility] Start: 03-01-2022 Influenza vaccination A [facility] Start: 02-15-2022 End: 02-15-2022 Patient encounter procedure 02/15/2022 Office Visit Orthopaedics Medardo Vuong, [employer]IC[employer]ER [address] [place] [address] [facility] Start: 07-01-2021 DEPRESSION ASSESSMENT DEPRESSION ASS ESSMENT [facility] Start: 06-01-2021 Screening for malign ant neoplasm of breast [facility] Start: 03-01-2021 Influenza vaccination INFLUENZ A (Season Ended) [facility] Start: 10-21-2020 COVID-19 VACCINE (3 - Pfizer risk series) COVID-19 VACCINE (3 - Pfizer risk series) [facility] Start: 2019 RSV Vaccine (1 - 1-d ose 60+ series) RSV Vaccine (1 - 1-dose 60+ series) [facility] Start: 05-26-2019 Pneumococcal vaccination Pneum ococcal Vaccine (3 of 3 - PCV) [facility] Start: 05-16-2017 Ambulatory [facility] Start: 05-15-2017 Ambulatory 05/15/2017 Ane sthesia Event Larisa Javier, DO [address] [address] [phone] [facility] Start: 03-01-2017 Influenza vaccination SEQUENTI AL INFLUENZA VACCINE (#1) [facility] Work Phone: Start: 01-27-2017 DIABETES SCREEN DIABETES SCREEN [facility] Start: 01-27-2017 PAP TESTING PAP TESTING [facility] Start: 01-27-2017 Screening for malign ant neoplasm of cervix Pap Testing [facility] Start: 01-27-2013 Screening for malign ant neoplasm of cervix Cervical Cancer Screening [facility] Start: 01-27-2011 Colonoscopy COLONOSCOPY [facility] Start: 01-27-2011 COLORECTAL CANCER SCREENING COLORECTAL CANCER SCREENING [facility] Start: 01-27-2011 Screening for malign ant neoplasm of colon [facility] Start: 11-04-2009 Screening for malign ant neoplasm of colon [facility] Start: 11-04-2009 SHINGRIX VACCINE (1 of 2) SHINGRIX VACCINE (1 of 2) [facility] Start: 11-04-2009 Zoster vaccine hzv l sandra for subcutaneous use ZOSTER (SHINGLES) VACCINE (1 of 2) [facility] Start: 11-04-2004 COLOGUARD (FIT-DNA) COLOGUARD (FIT-D NA) [facility] Start: 11-04-2004 Colonoscopy COLORECTAL CAN CER SCREENING DISCUSSION [facility] Start: 11-04-[address] COLONOGRAPHY [facility] Start: 11-04-2004 FECAL OCCULT BLOOD FECAL OCCULT BLOO D [facility] Start: 11-04-2004 Lipid 1996 panel - S tea or Plasma Lipid Screening [facility] Start: 11-04-2004 Lipid panel Lipid Screening [facility] Start: 11-04-2004 LIPID SCREEN LIPID SCREEN [facility] Start: 11-04-2004 Screening for malign ant neoplasm of colon [facility] Start: 11-04-2004 SIGMOIDOSCOPY SIGMOIDOSCOPY [facility] Start: 1999 Fasting lipid profile LIPID SCREENIN G [facility] Start: 1999 Lipid panel LIPID SCREENING [facility] Start: 1999 Mammography [facility] Start: 1999 Screening for malign ant neoplasm of breast MAMMOGRAM SCREENING DISCUSSION [facility] Start: 1999 Screening mammography MAMMOGRA M SCREENING DISCUSSION [facility] Start: 11-04-1989 HPV TESTING HPV TESTING [facility] Start: 11-04-1989 Screening for malign ant neoplasm of cervix [facility] Start: 11-04-1980 Screening for malign ant neoplasm of cervix [facility] Start: 11-04-1978 SHINGRIX VACCINE (1 of 2) SHINGRIX VACCINE (1 of 2) [facility] Start: 11-04-1978 Third diphtheria, tetanus and acellular pertussis (DTaP) vaccination TDAP (ADULT) [facility] Start: 11-04-1978 Urine microalbumin profile [facility] Start: 11-04-1977 ANNUAL PCP TEAM [employer] HILDA DISEASE VISIT ANNUAL PCP TEAM CHRONIC DISEASE VISIT [facility] Start: 11-04-1977 Anxiety Screening Anxiety Screening [facility] Start: 11-04-1977 Depression Screening Depression Scre ening [facility] Start: 11-04-1977 Hepatitis B surface antibody level LDL Cholesterol [facility] Start: 11-04-1977 HEPATITIS C SCREENING HEPATITIS C SC REENING [facility] Start: 11-04-1977 HIV SCREENING HIV SCREENING [facility] Start: 11-04-1977 HIV screening HIV Screening [facility] Start: 11-04-1977 Spirometry Spirometry [facility] Start: 11-04-1977 Tetanus vaccination TETANUS [facility] Start: 11-04-1974 HIV screening HIV SCREENING DISCUSSION [facility] Start: 1971 Adult depression screening assessment DEPRESSION SCREENING [facility] Start: 11-04-1969 Diabetic foot examination (regime/therapy) [facility] Start: 11-04-1969 Glaucoma screening Dilated Retinal E xam [facility] Start: 11-04-1969 Hepatitis B screening Urine Albumin:Creatinine Ratio [facility] Start: 11-04-1969 Ophthalmic examinati on and evaluation OPHTHALMOLOGY EXAM [facility] Work Phone: Start: 11-04-1969 Urine, microalbumin URINE MICROALBUM IN [facility] Work Phone: Start: 11-04-1965 PNEUMOCOCCAL (1 - PCV) PNEUMOCOCCAL (1 - PCV) [facility] Start: 11-04-1965 Pneumococcal vaccination Pneum ococcal Vaccine (1 - PCV) [facility] Start: 05-07-1960 COVID-19 VACCINE (#1) COVID-19 VACCI NE (#1) [facility] Start: 1959 Hepatitis C antibody , confirmatory test HEPATITIS C VIRUS SCREENING [facility] Start: 1959 Hepatitis C screening HEPATITI S C VIRUS SCREENING [facility] Start: 1959 Screening for malign ant neoplasm of colon [facility] Start: 1959 Thyroid stimulating hormone measurement TSH [facility] Start: 1959 Hemoglobin A1c/Hemoglobin.total mass fraction (Bld) HEMOGLOBIN A1C [facility] Work Phone: Start: 1959 HEPATITIS C SCREENING HEPATITIS C SC REENING [facility] Work Phone: Start: 1959 Screening colonoscopy COLONOSCOPY O [facility] Work Phone: Start: 1959 Screening for malign ant neoplasm of cervix PAP SMEAR [facility] Work Phone: Start: 1959 End: 1959 Tetanus vaccination [facility] Aerobic culture Aerobic culture Microbiology Timed Impetigo Release Upon Ordering for 1 Occurrences starting 05/11/2024 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 Comment on above: Release Upon Orderin g for 1 Occurrences starting 01/23/2022 ANAEROBE CULTURE ANAEROBE CULTUR E Microbiology Routine 01/23/2022 12:35 PM EDT 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 Comment on above: Release Upon Orderin g for 1 Occurrences starting 01/23/2022 End: 03-17-2026 BD DXA TRABECULAR BONE SCORE (TBS) BD DXA TRABECULAR BONE SCORE (TBS) Radiology Routine Postmenopausal osteoporosis of multiple sites 1 Occurrences starting 02/15/2025 until 03/17/2026 [facility] Comment on above: 1 Occurrences starti ng 02/15/2025 until 03/17/2026 Comprehensive metabo lic 2000 panel - Serum or Plasma [facility] End: 11-12-2024 CT Shoulder - left WO contrast CT SHOULDER WO IVCON LEFT Radiology Routine Status post reverse total replacement of left shoulder 1 Occurrences starting 10/14/2023 until 11/12/2024 [facility] Work Phone: Comment on above: 1 Occurrences starti ng 10/14/2023 until 11/12/2024 End: 06-17-2025 CT Upper arm - left WO contrast CT HUMERUS WO IVCON LEFT Radiology Routine 1 Occurrences starting 05/18/2024 until 06/17/2025 [facility] Work Phone: Comment on above: 1 Occurrences starti ng 05/18/2024 until 06/17/2025 End: 03-17-2026 DXA Skeletal system.axial Views for bone density DXA-AXIAL SKELETON Radiology Routine Postmenopausal osteoporosis of multiple sites 1 Occurrences starting 02/15/2025 until 03/17/2026 [facility] Comment on above: 1 Occurrences starti ng 02/15/2025 until 03/17/2026 End: 03-17-2026 DXA-FOREARM SKELETON DXA-FOREARM SKELETON Radiology Routine Postmenopausal osteoporosis of multiple sites 1 Occurrences starting 02/15/2025 until 03/17/2026 [facility] Work Phone: Comment on above: 1 Occurrences starti ng 02/15/2025 until 03/17/2026 ECG COMPLETE [facility] Comment on above: Ordered: 12/20/2023 End: 06-05-2025 EMG(NEURO/NI) EMG(NEURO/NI) EMG Routine Failed orthopedic implant, subsequent encounter 1 Occurrences starting 06/05/2024 until 06/05/2025 [facility] Work Phone: Comment on above: 1 Occurrences starti ng 06/05/2024 until 06/05/2025 Fungus identified in Unspecified specimen by Culture FUNGUS CULTURE Microbiology Routine 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, initial encounter Release Upon Ordering for 1 Occurrences starting 01/23/2022 [facility] Comment on above: Release Upon Orderin g for 1 Occurrences starting 01/23/2022 Fungus identified in Unspecified specimen by Culture FUNGUS CULTURE Microbiology Routine 01/23/2022 12:35 PM ED [employer] Insj non-biodegradab le drug delivery implant INSERTION DRUG-DELIVERY IMPLANT UPPER EXTREMITY 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 orthopedic implant, initial encounter ([facility]) Loose orthopedic implant, subsequent encounter [facility] 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 by Organism specific culture ACID FAST CULTURE, TISSUE Microbiology Routine 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, initial encounter Release Upon Ordering for 1 Occurrences starting 01/23/2022 [facility] [facility] Comment on above: Release Upon Orderin g for 1 Occurrences starting 01/23/2022 Mycobacterium sp identified in Unspecified specimen by Organism specific culture ACID FAST CULTURE Microbiology Routine 01/23/2022 12:35 PM EDT [employer] Radiography for bone length studies XR BONE LENGTH STUDY Imaging Routine Right knee pain, unspecified chronicity 01/11/2022 10:31 AM ED [employer] [facility] Radiography for bone length studies XR BONE LENGTH STUDY Imaging Routine Hx of total knee arthroplasty, right 06/06/2022 4:09 PM [facility] [employer] [facility] Removal implant deep REMOVAL IMP LANT DEEP 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 orthopedic implant, initial encounter ([facility]) Loose orthopedic implant, subsequent encounter [facility] Marvin shoulder arthrplsty humeral&glenoid compnt REVISE TOTAL SHOULDER ARTHROPLASTY INCL ALLOGRAFT WHEN PERFORMED HUMERAL AND GLENOID COMPONENT 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 orthopedic implant, initial encounter ([facility]) [facility] STREPTOCOCCUS PNEUMO BONNIE AB (IGG) (23 SEROTYPES) STREPTOCOCCUS PNEUMONIA AB (IGG) (23 SEROTYPES) Lab Routine Pneumonia of left lower lobe due to Streptococcus pneumoniae ([facility]) Recurrent sinus infections Ordered: 08/31/2024 [employer] Comment on above: Ordered: 08/31/2024 TISSUE CULTURE TISSUE CULTURE Microbiology Routine 01/23/2022 12:35 PM EDT [employer] [facility] XR Knee - left 4 Views [facility] XR Knee - right 3 Views XR KNEE RIGHT 3 VIEWS Imaging Routine Right knee pain, unspecified chronicity 01/11/2022 10:31 AM EDT [employer] [facility] XR Knee - right 3 Views XR KNEE RIGHT 3 VIEWS Imaging Routine Hx of total knee arthroplasty, right 02/15/2022 2:08 PM EDT [employer] [facility] XR Knee - right 3 Views XR KNEE RIGHT 3 VIEWS Imaging Routine Hx of total knee arthroplasty, right 06/06/2022 4:09 PM EST [employer] [facility] XR Knee - right 3 Views XR KNEE RIGHT 3 VIEWS Imaging Routine Hx of total knee arthroplasty, right 02/20/2023 2:27 PM EDT [employer] [facility] XR Knee - right 3 Views XR knee 3 views right Imaging Routine Chronic pain of right knee 03/13/2024 8:03 AM EDT [employer] Work Phone: End: 11-07-2024 XR Shoulder - left 3 Views XR SHOULDER GENERAL 3V OR MORE AP/TRUE AP/OTHER LEFT Radiology Routine Left shoulder pain, unspecified chronicity 1 Occurrences starting 10/09/2023 until 11/07/2024 [facility] Work Phone: Comment on above: 1 Occurrences starti ng 10/09/2023 until 11/07/2024 End: 06-12-2025 XR Shoulder - left 3 Views XR SHOULDER GENERAL 3V OR MORE AP/TRUE AP/OTHER LEFT Radiology Routine S/P shoulder surgery 1 Occurrences starting 05/13/2024 until 06/12/2025 [facility] Work Phone: Comment on above: 1 Occurrences starti ng 05/13/2024 until 06/12/2025 [facility] Immunizations Immunization Date Immunization Notes Care Provider Tayo sullivan 03-12-2025 tetanus toxoid, redu audra diphtheria toxoid, and acellular pertussis vaccine, adsorbed Yuerong Ana [employer]OG LICENSER Work Phone: [facility] 05-15-2024 influenza virus vaccine, unspecified formulation Oswald Curry [facility] 03-26-2024 pneumococcal polysaccharide vaccine, 23 valent Merline Prieto NP Work Phone: [facility] 06-07-2023 pneumococcal 20-francisco nt conjugate vaccine Rainer Floyd [facility] 06-04-2023 pneumococcal conjuga te 20-valent (Prevnar 20) 0.5 ML vaccine Adam Hernandez MD Work Phone: [facility] 05-14-2023 influenza virus vaccine, unspecified formulation Rainer Floyd [facility] 07-24-2022 influenza virus vaccine, unspecified formulation Shalom [place] [facility] 07-24-2022 influenza, injectabl e, quadrivalent, preservative free Sintia Grande DO Work Phone: [facility] 07-24-2022 Moderna SARS-CoV-2 50mcg/0.5mL Booster Sintia Grande DO Work Phone: [facility] 07-24-2022 SARS-CoV-2 (COVID-19 ) [id number] Shalom [place] [facility] 11-17-2021 SARS-CoV-2 mRNA (tcrjlsmzafp-fnry-yqetq se) vaccine Teodora Ott [facility] 06-09-2021 SARS-CoV-2 (COVID-19 ) mRNA BNT-162b2 vax Teodora Currymetz [facility] 05-10-2021 influenza, high dose seasonal, preservative-free Sintia Zahler DO Work Phone: [facility] 05-10-2021 influenza virus vaccine, unspecified formulation Puja Pendleton MD Work Phone: [facility] 05-01-2021 influenza virus vaccine, unspecified formulation Haim Mendezyasmeen [facility] 04-27-2021 influenza virus vaccine, unspecified formulation Teodora Currymetz [facility] 04-27-2021 influenza, injectabl e, quadrivalent, preservative free Sintia Zahler DO Work Phone: [facility] 09-23-2020 COVID-19, mRNA, LNP- S, PF, 30 mcg/0.3 mL dose; Translations: [Pfizer-BioNTech COVID-19 Vaccine] [facility] Comment on above: Reason for Medicatio n: Prophylaxis 09-02-2020 COVID-19, mRNA, LNP- S, PF, 30 mcg/0.3 mL dose; Translations: [Pfizer-BioNTech COVID-19 Vaccine] Haim [facility] Comment on above: Reason for Medicatio n: Prophylaxis 04-14-2020 influenza virus vaccine, unspecified formulation Teodora Tru [facility] 04-14-2020 Influenza, injectabl e, Madin Briana Canine Kidney, preservative free, quadrivalent Sintia Zahler DO Work Phone: [facility] 04-04-2020 influenza, high dose seasonal, preservative-free Sintia Zahler DO Work Phone: [facility] 04-04-2020 influenza, unspecifi ed formulation Rainer Floyd [facility] 03-18-2019 influenza, injectabl e, quadrivalent, preservative free Sintia Zahler DO Work Phone: [facility] 03-18-2019 influenza, unspecifi ed formulation Rainer Floyd [facility] 03-02-2019 influenza virus vaccine, unspecified formulation Teodora Tru [facility] 03-02-2019 influenza, injectabl e, quadrivalent, preservative free Sintia Zahler DO Work Phone: [facility] 02-24-2019 influenza virus vaccine, unspecified formulation Teodora Tru [facility] 02-24-2019 influenza, injectabl e, quadrivalent, preservative free Sintia Zahler DO Work Phone: [facility] 05-26-2018 pneumococcal polysaccharide vaccine, 23 valent Teodora Tru [facility] 03-13-2018 pneumococcal polysaccharide vaccine, 23 valent Teodora Tru [facility] 03-26-2017 influenza virus vaccine, unspecified formulation Teodora Tru [facility] 03-26-2017 influenza, injectabl e, quadrivalent, preservative free Sintia Zahler DO Work Phone: [facility] 03-20-2016 influenza virus vaccine, unspecified formulation Teodora Tru [facility] 03-20-2016 influenza, injectabl e, quadrivalent, preservative free Sintia Zahler DO Work Phone: [facility] 04-27-2014 influenza virus vaccine, unspecified formulation Teodora Tru [facility] 04-27-2014 influenza, seasonal, injectable, preservative free Sintia Grande DO Work Phone: [facility] 05-07-2013 influenza virus vaccine, unspecified formulation Teodora Ott [facility] 05-07-2013 influenza, seasonal, injectable Sintia Grande DO Work Phone: [facility] NEGATED: Highlighted row has not occurred!05-03-2023 influenza virus vaccine, unspecified formulation STEVO NFEF [facility] NEGATED: Highlighted row has not occurred!05-11-2022 influenza virus vaccine, unspecified formulation Teodora Ott [facility] NEGATED: Highlighted row has not occurred!04-24-2021 influenza virus vaccine, unspecified formulation Haim Hi [facility] Payers Date Payer Category Payer Self-pay [id number] 2020 Blue [employer] Blue Shield [id number] 2020 Unknown [id number]. [id number]. [id number] 2018 Unknown [id number] 2015 Private Health Insurance [facility] CHOICE [id number] 2015-2019 O [id number]. [id number] 1959 Unknown [id number] 2.16.840.1.987639.3.579.2. 593 1959 Unknown [id number] 2.16.840.1.437971.3.579.2. 593 1959 Unknown [id number] 2.16.840.1.518313.3.579.2. 593 1959 Unknown [id number] 2.16.840.1.324933.3.579.2. 593 1959 Unknown [id number] 2.16.840.1.657343.3.579.2. 593 1959 Unknown [id number] 2.16.840.1.356554.3.579.2. 593 1959 Unknown [id number] 2.16.840.1.292182.3.579.2. 593 1959 Unknown [id number] 2.16.840.1.665094.3.579.2. 593 1959 Unknown [id number] 2.16.840.1.717649.3.579.2. 593 1959 Unknown [id number] 2.16.840.1.830691.3.579.2. 593 1959 Unknown [id number] 2.16.840.1.297159.3.579.2. 593 1959 Unknown [id number] 2.16.840.1.329667.3.579.2. 593 1959 Unknown [id number] 2.16.840.1.571326.3.579.2. 593 1959 Unknown [id number] 2.16.840.1.820283.3.579.2. 593 1959 Unknown [id number] 2.16.840.1.702103.3.579.2. 983 1959 Unknown [id number] 2.16.840.1.327400.3.579.2. 983 1959 Unknown [id number] 2.16.840.1.056734.3.579.2. 983 1959 Unknown [id number] 2.16.840.1.112466.3.579.2. 983 1959 Unknown [id number] 2.16.840.1.691371.3.579.2. 8 1959 Unknown [id number] 2.16.840.1.343716.3.579.2. 8 1959 Unknown [id number] 2.16.840.1.003829.3.579.2. 1286 1959 Unknown [id number] 2.16.840.1.077354.3.579.2. 1959 Unknown [id number] 2.16.840.1.215863.3.579.2. 1959 Unknown [id number] 2.16.840.1.607511.3.579.2 1959 Unknown [id number] 2.16.840.1.925548.3.579.2. 1959 Unknown [id number] 2.16.840.1.815965.3.579.2 1959 Unknown [id number] 2.16.840.1.032188.3.579.2. 1959 Unknown [id number] 2.16.840.1.622523.3.579.2. 1959 Unknown [id number] 2.16.840.1.458850.3.579.2. 1959 Unknown [id number] 2.16.840.1.118987.3.579.2. 1959 Unknown [id number] 2.16.840.1.937480.3.579.2 1959 Unknown [id number] 2.16.840.1.542701.3.579.2. 1959 Unknown [id number] 2.16.840.1.778658.3.579.2 1959 Unknown [id number] 2.16.840.1.362562.3.579.2 1959 Unknown [id number] 2.16.840.1.159290.3.579.2 1959 Unknown [id number] 2.16.840.1.079445.3.579.2 1959 Unknown [id number] 2.16.840.1.965757.3.579.2 1959 Unknown [id number] 2.16.840.1.498340.3.579.2 1959 Unknown [id number] 2.16.840.1.198864.3.579. 1959 Unknown [id number] 2.16.840.1.918390.3.579. 1959 Unknown [id number] 2.16.840.1.786249.3.579. 1959 Unknown [id number] 2.16.840.1.938836.3.579. 1959 Unknown [id number] 2.16.840.1.210972.3.579. 1959 Unknown [id number] 2.16.840.1.476403.3.579.2 1959 Unknown [id number] 2.16.840.1.052187.3.579.2 1959 Unknown [id number] 2.16.840.1.870408.3.579.2 1959 Unknown [id number] 2.16.840.1.420926.3.579.2 1959 Unknown [id number] 2.16.840.1.592055.3.579.2 1959 Unknown [id number] 2.16.840.1.447117.3.579.2 1959 Unknown [id number] 2.16.840.1.801862.3.579.2. 1959 Unknown [id number] 2.16.840.1.839292.3.579.2. 1960 Unknown [id number] 2.16.840.1.456161.3.579.2. 1960 Unknown [id number] 2.16.840.1.897864.3.579.2. 1959 Unknown [id number] 2.16.840.1.601698.3.579.2. 1959 Unknown [id number] 2.16.840.1.526624.3.579.2. 1959 Unknown [id number] 2.16.840.1.955309.3.579.2. 1959 Unknown [id number] 2.16.840.1.424627.3.579.2. 1959 Unknown [id number] 2.16.840.1.671894.3.579.2. 1959 Unknown [id number] 2.16.840.1.968064.3.579.2 1959 Unknown [id number] 2.16.840.1.449147.3.579.2. 1959 Unknown [id number] 2.16.840.1.065511.3.579.2. 1959 Unknown [id number] 2.16.840.1.551437.3.579.2. 1959 Unknown [id number] 2.16.840.1.924520.3.579.2. 1959 Unknown [id number] 2.16.840.1.542410.3.579.2. 1285 1959 Unknown [id number] 2.16.840.1.007706.3.579.2. 12851960 Unknown [id number] 2.16.840.1.330013.3.579.2. 1959 Unknown [id number] 2.16.840.1.183927.3.579.2. 1959 Unknown [id number] 2.16.840.1.053865.3.579.2. 1959 Unknown [id number] 2.16.840.1.814550.3.579.2. 1959 Unknown [id number] 2.16.840.1.947360.3.579.2. 1959 Unknown [id number] 2.16.840.1.882905.3.579.2. 1959 Unknown [id number] 2.16.840.1.768642.3.579.2. 1959 Unknown [id number] 2.16.840.1.890299.3.579.2. 1258 1959 Unknown [id number] 2.16.840.1.178958.3.579.2. 1258 1959 Unknown [id number] 2.16.840.1.750973.3.579.2. 1258 1959 Unknown [id number] 2.16.840.1.732690.3.579.2. 1258 1959 Unknown [id number] 2.16.840.1.439006.3.579.2. 1258 1959 Unknown [id number] 2.16.840.1.155551.3.579.2. 1258 1959 Unknown [id number] 2.16.840.1.712132.3.579.2. 1258 1959 Unknown [id number] 2.16.840.1.552561.3.579.2. 1258 1959 Unknown [id number] 2.16.840.1.988355.3.579.2. 196 1959 Unknown [id number] 2.16.840.1.048246.3.579.2. 196 1959 Unknown [id number] 2.16.840.1.671508.3.579.2. 727 1959 Unknown [id number] 2.16.840.1.659884.3.579.2. 72 1959 Unknown [id number] 2.16.840.1.744440.3.579.2. 1959 Unknown [id number] 2.16.840.1.111822.3.579.2. 1959 Unknown [id number] 2.16.840.1.949919.3.579.2. 1959 Unknown [id number] 2.16.840.1.101493.3.579.2. 1959 Unknown [id number] 2.16.840.1.205450.3.579.2. 1959 Unknown [id number] 2.16.840.1.661737.3.579.2. 7 1960 [employer] Blue Shield [id number] 2.16.840.1.668473.19 1959 Self-pay [id number] 1959 Unknown [id number] 2.16.840.1.229936.3.249.13 Unknown [id number] 2.16.840.1.991518.3.579.2. 531 Unknown [id number] 2.16.840.1.915799.3.579.2. 531 Unknown [id number] 2.16.840.1.016179.3.579.2. 531 Unknown [id number] 2.16.840.1.840685.3.579.2. 531 Unknown [id number] 2.16.840.1.870970.3.579.2. 531 Social History Date Type Detail Facility Start: 04-18-2011 End: 05-16-2017 Tobacco smoking status NHIS Never smoker [facility] Work Phone: Start: 1960 Sex Assigned At Not on file [facility] Work Phone: Start: 04-18-2011 End: 01-01-2015 Tobacco use and exposure Never used [facility] Start: 01-01-2015 End: 02-15-2025 Alcohol intake Current drinker of alcohol (finding) [facility] Start: 01-13-2022 End: 03-18-2023 Exposure to SARS-CoV-2 (event) Not sure [facility] Start: 06-01-2012 Tobacco smoking status Never [facility] Start: 02-20-2023 End: 03-13-2025 Sex Assigned At Female [facility] [employer] Other Start: 01-11-2022 History SDOH Alcohol Comment [facility] Start: 1960 Sex Assigned At Female F [facility] Tobacco [facility] Comment on above: Denies. Tobacco smoking status [facility] Start: 02-20-2023 End: 03-13-2025 History of Social function [facility] Start: 05-23-2023 Alcohol Comment pop 2-3 cups per day [facility] Start: 09-17-2024 End: 12-08-2024 Sex Female (finding) [facility] Medical Equipment Procedure Code Equipment Code Equipment Origin al Text Equipment Identifier Dates Graft 5cc Bone Biocomposite Strip Augmatrix - [id number] Start: 09-14-2016 Allopure Bicorti pilar 8mm Champagne Start: 05-24-2015 Augmatrix Biocom posite Bone Graft Strip - 5cc Start: 05-24-2015 Screw 3.5 X 20mm Prabhu Lock Ortholoc 3dsi - [id number] Start: 05-24-2015 Screw 3.5 X 24mm Prabhu Lock Ortholoc 3dsi - [id number] Start: 05-24-2015 Plate 20mm 2hl C law Ii - [id number] Start: 05-24-2015 Plate 2mm Lapidu s Flat Ortholoc 3di Hallux - [id number] Start: 09-14-2016 Screw 3.5 X 20mm Lock Ortholoc 3di - [id number] Start: 09-14-2016 Screw 3.5 X 28mm Lock Ortholoc 3di - [id number] Start: 09-14-2016 Edge Lock Plate Start: 09-14-2016 Locking Screw Start: 09-14-2016 Nonlock Screw Start: 09-14-2016 Sht Screw Start: 09-14-2016 Plate Screws Graft 5cc Bone Biocomposite Strip Augmatrix - [id number] Start: 09-14-2016 Allopure Bicorti pilar 8mm Champagne Start: 05-24-2015 Augmatrix Biocom posite Bone Graft Strip - 5cc Start: 05-24-2015 Screw 3.5 X 20mm Prabhu Lock Ortholoc 3dsi - [id number] Start: 05-24-2015 Screw 3.5 X 24mm Prabhu Lock Ortholoc 3dsi - [id number] Start: 05-24-2015 Plate 20mm 2hl C law Ii - [id number] Start: 05-24-2015 Plate 2mm Lapidu s Flat Ortholoc 3di Hallux - [id number] Start: 09-14-2016 Screw 3.5 X 20mm Lock Ortholoc 3di - [id number] Start: 09-14-2016 Screw 3.5 X 28mm Lock Ortholoc 3di - [id number] Start: 09-14-2016 Edge Lock Plate Start: 09-14-2016 Locking Screw Start: 09-14-2016 Nonlock Screw Start: 09-14-2016 Sht Screw Start: 09-14-2016 Graft 5cc Bone Biocomposite Strip Augmatrix - [id number] Start: 09-14-2016 Allopure Bicorti pilar 8mm Champagne Start: 05-24-2015 Augmatrix Biocom posite Bone Graft Strip - 5cc Start: 05-24-2015 Screw 3.5 X 20mm Prabhu Lock Ortholoc 3dsi - [id number] Start: 05-24-2015 Screw 3.5 X 24mm Prabhu Lock Ortholoc 3dsi - [id number] Start: 05-24-2015 Plate 20mm 2hl C law Ii - [id number] Start: 05-24-2015 Plate 2mm Lapidu s Flat Ortholoc 3di Hallux - [id number] Start: 09-14-2016 Screw 3.5 X 20mm Lock Ortholoc 3di - [id number] Start: 09-14-2016 Screw 3.5 X 28mm Lock Ortholoc 3di - [id number] Start: 09-14-2016 Edge Lock Plate Start: 09-14-2016 Locking Screw Start: 09-14-2016 Nonlock Screw Start: 09-14-2016 Sht Screw Start: 09-14-2016 Graft 5cc Bone Biocomposite Strip Augmatrix - [id number] Start: 09-14-2016 Allopure Bicorti pilar 8mm Champagne Start: 05-24-2015 Augmatrix Biocom posite Bone Graft Strip - 5cc Start: 05-24-2015 Screw 3.5 X 20mm Prabhu Lock Ortholoc 3dsi - [id number] Start: 05-24-2015 Screw 3.5 X 24mm Prabhu Lock Ortholoc 3dsi - [id number] Start: 05-24-2015 Plate 20mm 2hl C law Ii - [id number] Start: 05-24-2015 Plate 2mm Lapidu s Flat Ortholoc 3di Hallux - [id number] Start: 09-14-2016 Screw 3.5 X 20mm Lock Ortholoc 3di - [id number] Start: 09-14-2016 Screw 3.5 X 28mm Lock Ortholoc 3di - [id number] Start: 09-14-2016 Edge Lock Plate Start: 09-14-2016 Locking Screw Start: 09-14-2016 Nonlock Screw Start: 09-14-2016 Sht Screw Start: 09-14-2016 Graft 5cc Bone Biocomposite Strip Augmatrix - [id number] Start: 09-14-2016 Allopure Bicorti pilar 8mm Champagne Start: 05-24-2015 Augmatrix Biocom posite Bone Graft Strip - 5cc Start: 05-24-2015 Screw 3.5 X 20mm Prabhu Lock Ortholoc 3dsi - [id number] Start: 05-24-2015 Screw 3.5 X 24mm Prabhu Lock Ortholoc 3dsi - [id number] Start: 05-24-2015 Plate 20mm 2hl C law Ii - [id number] Start: 05-24-2015 Plate 2mm Lapidu s Flat Ortholoc 3di Hallux - [id number] Start: 09-14-2016 Screw 3.5 X 20mm Lock Ortholoc 3di - [id number] Start: 09-14-2016 Screw 3.5 X 28mm Lock Ortholoc 3di - [id number] Start: 09-14-2016 Edge Lock Plate Start: 09-14-2016 Locking Screw Start: 09-14-2016 Nonlock Screw Start: 09-14-2016 Sht Screw Start: 09-14-2016 Graft 5cc Bone Biocomposite Strip Augmatrix - [id number] Start: 09-14-2016 Allopure Bicorti pilar 8mm Champagne Start: 05-24-2015 Augmatrix Biocom posite Bone Graft Strip - 5cc Start: 05-24-2015 Screw 3.5 X 20mm Prabhu Lock Ortholoc 3dsi - [id number] Start: 05-24-2015 Screw 3.5 X 24mm Prabhu Lock Ortholoc 3dsi - [id number] Start: 05-24-2015 Plate 20mm 2hl C law Ii - [id number] Start: 05-24-2015 Plate 2mm Lapidu s Flat Ortholoc 3di Hallux - [id number] Start: 09-14-2016 Screw 3.5 X 20mm Lock Ortholoc 3di - [id number] Start: 09-14-2016 Screw 3.5 X 28mm Lock Ortholoc 3di - [id number] Start: 09-14-2016 Edge Lock Plate Start: 09-14-2016 Locking Screw Start: 09-14-2016 Nonlock Screw Start: 09-14-2016 Sht Screw Start: 09-14-2016 Palacos R+G 1x40 Single With Gentamicin - [id number] Start: 01-23-2022 Revision Crs Rot ating Platform Insert Size 5 10mm Aox [id number] Start: 01-23-2022 Cement Simplex P Tobramycin Bone Full Dose Radiopaque Preblend Sterile - [id number] Start: 04-14-2024 Cement Simplex P Bone Radiopaque Full Dose Sterile - [id number] Start: 04-14-2024 Functional Status Date Assessment Result Facility 11-11-2024 Functional Status N/A [facility] 09-28-2024 Functional Status N/A [facility] 08-23-2024 Functional Status N/A [facility] 08-09-2024 Functional Status N/A [facility] 06-23-2024 Functional Status N/A [facility] 05-04-2024 Functional Status N/A [facility] 04-15-2024 Are you deaf, or do you have serious difficulty hearing No 04/15/2024 2:04 PM Austen Land RN No [facility] 04-15-2024 Are you blind, or do you have serious difficulty seeing, even when wearing glasses No 04/15/2024 2:04 PM Austen Land RN No [facility] 04-15-2024 Do you have serious difficulty walking or climbing stairs No 04/15/2024 2:04 PM Austen Land RN No [facility] 04-15-2024 Do you have difficul ty dressing or bathing No 04/15/2024 2:04 PM Austen Land RN No [facility] 04-15-2024 Because of a physica l, mental, or emotional condition, do you have difficulty doing errands alone such as visiting a physician's office or shopping No 04/15/2024 2:04 PM Austen Land RN No [facility] 03-23-2024 Functional Status N/A [facility] 02-06-2024 Functional Status No [facility] 01-27-2024 Functional Status N/A [facility] 01-21-2024 Functional Status N/A [facility] 01-20-2024 Functional Status [facility] 01-08-2024 Functional Status N/A [facility] 01-08-2024 Functional Status [facility] 01-04-2024 Functional Status N/A [facility] 01-04-2024 Functional Status [facility] 12-29-2023 Functional Status N/A [facility] 12-27-2023 Functional Status N/A [facility] 10-05-2023 Functional Status N/A [facility] 09-14-2023 Functional Status N/A [facility] 12-05-2022 Functional Status N/A [facility] 09-06-2022 Functional Status N/A [facility] 07-24-2022 Functional Status No [facility] 05-22-2022 Functional Status No [facility] 05-22-2022 Functional Status [facility] 05-21-2022 Functional Status N/A [facility] 05-11-2022 Functional Status N/A [facility] Mental Status Date Assessment Result Facility 04-15-2024 Because of a physica l, mental, or emotional condition, do you have serious difficulty concentrating, remembering, or making decisions No 04/15/2024 2:04 PM EDT Austen Tee RN No [facility] Clinical Notes 12-09-2015 to 03-12-2025 Telephone Encounter - Stevo Neff MD - 03/12/2025 4:59 PM EDTTelephone Encounter - Stevo Neff MD - 03/12/2025 4:59 PM Stevo Ruiz MD - 02/15/2025 7:40 AM EDTPatient Instructions Note Date & Type Note Facility 03-12-2025 Telephone encounter Note Notify patient medication sent as requested Thank you. Patient's request for medication is as follows: Requested Prescriptions Pending Prescriptions Disp Refills celecoxib (CELEBREX) 200 mg capsule [Pharmacy Med Name: CELECOXIB 200 MG CAPSULE] 180 capsule 2 Sig: TAKE 1 CAPSULE BY MOUTH TWICE A DAY Prescription(s) as above. Please process accordingly. Stevo Neff MD [facility] 03-12-2025 Miscellaneous Notes Notify patient medication sent as requested Thank you. Patient's request for medication is as follows: Requested Prescriptions Pending Prescriptions Disp Refills celecoxib (CELEBREX) 200 mg capsule [Pharmacy Med Name: CELECOXIB 200 MG CAPSULE] 180 capsule 2 Sig: TAKE 1 CAPSULE BY MOUTH TWICE A DAY Prescription(s) as above. Please process accordingly. Stevo Neff MD documented in this encounter [facility] 02-15-2025 History of Presen t illness Narrative Face to face Follow up for rheumatoid arthritis/+RF/low vitamin D/high crp &esr Today's visit 02/15/25:labs 03/2025. taking rinvoq, celebrex, vitamin D 1000 International Units daily with food, calcium, synthroid, zofran, inhalers, ozempic NO recent oral steroids. NO eye issues. Reports hairloss, dry mouth, nosebleed, sores in mouth 12/03/24 High alkaline phosphatase 131, esr 26;low hgb 11.2;normal rest of cbc, cmp, crp <0.3, vitamin D 68.1;negative hepatitis panel, quantiferon tb; Cori 11/15/23 osteopenia (was osteoporosis) Summer 2023 pneumonia 10/14/23 saw ortho drained left shoulder (pain in Left shoulder x 5months, since replacement) may proceed with shoulder revision if no infection. 10/14/23 high esr 45, crp 3.4, DDimer 4180;negative synovial fluid crystals, quantiferon quantiferon tb Still working. Due for cruise in 03/2025 [facility]. 100% improvement from rinvoq. Walking for exercise. Legs/feet swelling in AM, better with lasix. Chronic current pain in both hands, knees, ankles. Worse in rainy weather or wintertime. Reports pain 08/10. Has minimal AM stiffness. Feels safe at home. Has enough food, supplies and medications. Overall mildly uncomfortable but happy with rheum care. No falls/fx/trauma/illness/oral sores/rash/hairloss/jaw pain/dysphagia/epistaxis/hemopt ysis since last visit. No adverse effects with meds. No other complaints. Patient denies fever, chills, cp, dyspnea, nausea, vomiting, night sweats, scalp tenderness, visual changes, moreland, bowel/bladder changes, weight changes or other complaints. Last visit supportive care, check labs, obtain bmd results, follow up with primary care provider for infection care, improved with rinvoq/continue daily when infection free, improved with prednisone/take for flares, improved with celebrex twice a day if helpful/tolerated, tolerating prolia every 6months/next due ~10/08/23 with primary care provider, calcium dietary, increase vitamin D 4000 International Units daily with food, see ortho, start prn heat/ice/otc arthritis creams, start low impact weightbearing exercise as tolerated, avoid aggravating triggers, 10/01/23:not seen in 2years. Due for labs. Much improved with rinvoq (occasional nausea), celebrex twice a day, vitamin D script now taking vitamin D 2000 International Units daily with food, synthroid, last week recent oral steroids and doxycycline for cold. Had bmd 03/2023. Due for next prolia 10/08/23 with primary care provider. Did fine with last prolia. No dental work planned. Not taking antibiotics. No signs or symptoms of infection. Asthma stable. Recently eye exam, s/p YAG for both eyes recently, will get new glasses. Has orders for labs this month Warren nuñez 07/15/23 low potassium 3.4;normal wbc 9.7, hgb 12.6, plts 278, glucose 100, creat 0.5,calcium 9, alkaline phosphatase 55, ast 17, alt 15, crp<1 (normal<1.9mg/dL), esr 19 (NL0-34mm/hr), vitamin D 31.6; 05/07/22 +RF26, +CCP 205, crp 0.9 (1.3), wbc 14.66 (7.11);low vitamin D 27.3;normal rest of cbc, cmp, esr 16, uric acid 3, vitamin b12-630;negative aileen ifa, hepatitis panel, quantiferon tb; 100% improvement from rinvoq. Goint to [employer] walking on treadmill and bike and leg raises for exercise. Mild leg edema/ swelling. Chronic current pain in knees, shoulders, better hands/wrists Reports pain 1/10. Has few min minimal AM stiffness. Feels safe at home. Has enough food, supplies and medications. Overall mildly uncomfortable but happy with rheum care. No falls/fx/trauma/illness/oral sores/rash/hairloss/jaw pain/dysphagia/epistaxis/hemopt ysis since last visit. No adverse effects with meds. No other complaints. Patient denies fever, chills, cp, dyspnea, nausea, vomiting, night sweats, scalp tenderness, visual changes, moreland, bowel/bladder changes, weight changes or other complaints. Last visit supportive care, improved with rinvoq/continue daily, improved with prednisone/take for flares, improved with celebrex/increase to twice a day if helpful/tolerated, prolia every 6months/next due ~05/2022, calcium/vitamin D daily, see ortho, start prn heat/ice/otc arthritis creams, start low impact weightbearing exercise as tolerated, avoid aggravating triggers, May 07, 2022 SUBJECTIVE Ms. Gutierrez is a 61 year old female who presents for rheumatoid arthritis eval. eczema back of knees/antecubital area as a child Saw years ago for alopecia and +AILEEN (1:160). alopecia start in 2000 - initially hair thinning then within 2 weeks completely lost all her hair (at the time she had mother , marital problems). Tried topical medications - no response. no hair on head, arms and just now getting hair on eyebrows back. 2018 pain in the both hands/wrists, L shoulder, Saw and Burning pain and swelling of hands/wrists with red blotch on back of hand L shoulder rotator cuff tear due for surgery, no scheduled yet Improved with prednisone x 1year, tapered 2019, recently on prednisone for +COVID19 in 03/2022, then treated with paxlovid 01/23/22 s/p R TKR for bone on bone, dislocation, no history of steroid injection Rinvoq 2019-presents with good response with hands/shoulders,knee pain 100% improvement with med Celebrex twice a day when working, now taking once a day with good response Calcium once a day Vitamin D 1000 International Units daily with food Prolia summer 11/2021 Abnormal Bone mineral density cori years ago Reports pain 1/10 at the worst 10/10 No falls/fx/trauma/illness/oral sores/rash/hairloss/jaw pain/dysphagia/epistaxis/hemopt ysis. No adverse effects with meds. No other complaints. Patient denies fever, chills, cp, dyspnea, nausea, vomiting, night sweats, scalp tenderness, visual changes, moreland, bowel/bladder changes, weight changes or other complaints. COMPLETE REVIEW OF SYSTEMS: RHEUM. ROS: Joint pain: yes hands, wrists, knees, L shoulder Joint swelling: yes back of hands, wrists, shoulders, elbows Am stiffness: yes 20-25minutes Low back pain: no Dactylitis: no H/o precedent/frequent infection(s): as above Enthesopathy/Robertson's/heel/rene ntar tenderness: no Skin thickening, psoriasis, photosensitivity, purpura: eczema back of knees/antecubital area as a child Nail changes: no Alpecia, patchy: yes for years 24y/o, when when mother Eye inflammation: glasses SICCA: no Oral/nasal/genital ulcers: upper lip sore/laceration bite from eating GI problems-diarrhea/bleeding/IBD/ Gluten intolerence/Dysphagia: no Raynaud's phenomenon/digital ulcers: no Organ inv-Serositis: copd Lung disease/ILD: copd Myopathy/proximal muscle weakness: no Abnormal Urine or urethritis: no Renal/liver disease: no 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 Other ROS:The remainder of the review of systems is negative. All other reviewed and negative other than HPI. PATIENT REPORTS: Cardiac stress test:no Breast exam:negative Pap exam: normal, last menses 33y/o with hysterectomy for prolapsed uterus, no taking hormones; G4, P3, 1miscarriage Colonoscopy: 2019 diverticulosis Bone Density:Cori 11/15/23 osteopenia (was osteoporosis) cori ~2019 osteoporosis History of Fractures:T9 compression fractures 03/2022 from coughing, T6 compression fracture from 05/2020 infection coughing Height Loss: 1 IMMUNIZATION HX: Pneumovax years ago Flu shot not yet Tetanus yes Last PPD: negative years ago PAST MEDICAL HISTORY: PMH alopencia totalis, asthma, eczema, heavy menses, obesity, rosacea, seasonal allergies, +PE 07/2020 with 1st +COVID19 infection 05/2020 was on oxygen for 9months, 2019 diverticulosis., T9 compression fractures 03/2022 from coughing, T6 compression fracture from 05/2020 infection coughing, DM type 2, thyroid disease, s/p left axillary lymph node biopsy, 33y/o with hysterectomy for prolapsed uterus, s/p b/l partial knee replacements 2018 & 2017, s/p R anterior tibialis tendon surgery , 33y/o with hysterectomy for prolapsed uterus, s/p straightening pronated feet surgeries , s/p tonsillectomy, s/p cholecystectomy, s/p appy, s/p b/l cataracts surgeries 05/2021 PAST SURGICAL HISTORY: s/p left axillary lymph node biopsy, 33y/o with hysterectomy for prolapsed uterus, s/p b/l partial knee replacements 2018 & 2017, s/p R anterior tibialis tendon surgery , 33y/o with hysterectomy for prolapsed uterus, s/p straightening pronated feet surgeries , s/p tonsillectomy, s/p cholecystectomy, s/p appy, s/p b/l cataracts surgeries 05/2021 PAST SURGICAL HISTORY Procedure Laterality Date APPENDECTOMY BX BREAST NEEDLE CORE W/O IMAGING GUIDANCE SPX 09/25/2007 left axillary lymph node HYSTERECTOMY HX both ovaries intact PAST SURGICAL HISTORY OF bilateral partial knee replacement. PAST SURGICAL HISTORY OF hysterectomy PAST SURGICAL HISTORY OF Right 1989 tibialis anterior tendon PAST SURGICAL HISTORY OF 2014 straightening pronated feet PAST SURGICAL HISTORY OF Right 2021 total knee right PAST SURGICAL HISTORY OF Left 05/2023 total reverse shoulder REMOVAL GALLBLADDER REMV CATARACT EXTRACAP,INSERT LENS Bilateral S ANTERIOR TIBIALIS TENDON TONSILLECTOMY & ADENOIDECTOMY <AGE 11 FAMILY HISTORY: PGM-rheumatoid arthritis, gout;father- 56y/o brain blood clot, [place];mother- cancer 66y/o;sisters-osteoarthritis;ch ildren-healthy; FAMILY HISTORY Problem Relation Age of Onset Cancer Mother Cerebral Embolism Father CVA, aneurysm, [place], other (normal [Other]) Sister None Sister None Sister Breast Cancer No Family History no known family h/o breast or ovarian cancer Anesthesia Problems No Family History SOCIAL HISTORY: Job retired working at the [employer] 09/2020, 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 Smoking no etoh occasionally No gout MEDICATIONS: reviewed medlist 02/15/25 Calcium daily Vitamin D 1000 International Units daily with food CURRENT ALLERGIES: Allergies As of Date: 02/15/2025 Allergen Noted Reaction KEFLEX [CEPHALEXIN] 10/18/2004 Hives PENICILLINS 01/05/2004 Hives ELIQUIS [APIXABAN] 04/14/2024 Hives TREE NUTS 04/14/2024 Anaphylaxis Fully Assessed 06/15/2024 TESTS:All Diagnostic tests reviewed for today's visit: 12/03/24 High alkaline phosphatase 131, esr 26;low hgb 11.2;normal rest of cbc, cmp, crp <0.3, vitamin D 68.1;negative hepatitis panel, quantiferon tb; [place] 11/15/23 osteopenia (was osteoporosis) L1-L4 1.238g/cm2, tscore 0.5; Dual fem mean 0.763g/cm2, tscore-2; Left fem total 0.817g/cm2, tscore1.6, zscore-0.7; Left total fem 0.843g/cm2, tscore-1.3, zscore-0.8; Left troch 0.807g/cm2, tscore -2.1, zscore -1.7; Right neck fem 0.713g/cm2, tscore-2.3, zscore-1.5; Left total fem 0.807g/cm2, tscore-1.6, zscore-1.1; Right troch 0.603g/cm2, tscore-2.2, zscore-1.7; 10/14/23 saw ortho drained left shoulder (pain in Left shoulder x 5months, since replacement) may proceed with shoulder revision if no infection. 10/14/23 high esr 45, crp 3.4, DDimer 4180;negative synovial fluid crystals, quantiferon tb Kelley luis enrique 07/15/23 low potassium 3.4;normal wbc 9.7, hgb 12.6, plts 278, glucose 100, creat 0.5,calcium 9, alkaline phosphatase 55, ast 17, alt 15, crp<1 (normal<1.9mg/dL), esr 19 (NL0-34mm/hr), vitamin D 31.6; 05/07/22 +RF26, +CCP 205, crp 0.9 (1.3), wbc 14.66 (7.11);low vitamin D 27.3;normal rest of cbc, cmp, esr 16, uric acid 3, vitamin b12-630;negative aileen ifa, hepatitis panel, quantiferon tb; Outside 01/24/22 low hgb 9.4, calcium 8.1;high glucose 201;normal wbc 10.6, plts 262, rest of bmp, creat 0.57, potassium 3.9; 09/2005 normal cbc, cmp, c3-147, c4 36, negative crithidia lucillae 08/08/05 +AILEEN 1:160/speckled, +AILEEN 3ia 13.9;normal esr 16, crp 1.3, IGE 42.4, zinc;negative fadi, rf 10, dsdna; PHYSICAL EXAM:reviewed vitals from last visit BP 101/58 Pulse 85 Wt 78 kg (171 lb 15.3 oz) BMI 38.55 kg/m General Appearance: WD/WN, NAD. Appropriate grooming. Very pleasant. Ambulates fair without assistance or without assistive devices, speaks in full sentences without distress SKIN: No rash, no psoriasis, no purpura, no ulcers, no skin thickening/tightness, no telangiectasias. HEENT: No patchy alopecia, normal temporal artery pulsations, non-tender, scalp non-tender, no conjunctival injection or icterus, no oral ulcers, no thrush, normal nasal mucosa, no sinus tenderness, normal TM's. yes glasses, fair dentition NECK: neck supple w/o masses, no thyromegaly, no LAD. LUNGS: CTA, Good respiratory effort. HEART: RRR, - m/r/g ABDOMEN: soft, non-tender, no HSM/masses/bruits. EXTREMITIES: Adequate pulses b/l UE ; No clubbing,discoloration,scleroda ctyly, periungual erythema, digital ulcers, nail pitting, edema, varicosities. MUSCULOSK: s/p R TKR, s/p Left partial knee replacement No joint deformities, no rheumatoid nodules, calcifications or tophi. No SI tenderness, no michelle's tenderness, no heel/plantar tenderness, lumbar flexion full, negative Arturo's test, tinel's and dennys tests Swoll JTS:no Tend. JTS:R>L hands, wrists, knees/ankles, less L shoulder, decreased range of motion/abduction Left shoulder due to pain; no warmth/erythema No clinical synovitis in the DIP's, PIP's, MCP's, wrists, elbows, shoulders, knees, ankles, midfoot, or toes. no knee effusions bilateral. Shoulder exam:see above; no warmth/erythema Hip rom without pain LIMITATION of Motion of Joints: yes Thoracic/Lumbar Spine: No percussion tenderness SLR:negative No instability in any upper or lower extremity joints. NEURO: Mental Status: alert and oriented x 3, anxious, CN II - XII grossly intact Motor: 5/5 proximally and distally b/l Sensory: intact to fine touch TENDER POINTS: 0/18 Gait: see above Toe and heel walk normal. Tone: normal IMPRESSION/DIAGNOSIS:02/15/25 M06.09 Rheumatoid arthritis of multiple sites without rheumatoid factor (HCC) (primary encounter diagnosis) M81.0 Postmenopausal osteoporosis of multiple sites R76.8 Cyclic citrullinated peptide (CCP) antibody positive R76.8 AILEEN positive M79.641, M79.642 Bilateral hand pain M25.561, M25.562, G89.29 Bilateral chronic knee pain M25.571, G89.29, M25.572 Chronic ankle pain, bilateral R70.0 Elevated sed rate R79.89 Elevated LFTs E55.9 Vitamin D deficiency R79.82 Elevated C-reactive protein (CRP) M15.3 Secondary osteoarthritis of multiple sites Z82.61 Family history of rheumatoid arthritis Z79.899 Long-term use of high-risk medication Ms. Gutierrez is a 64 year old Wfemale with PMH alopencia totalis, asthma, eczema, heavy menses, obesity, rosacea, seasonal allergies, +PE 07/2020 with 1st +COVID19 infection 05/2020 was on oxygen for 9months, 2020 diverticulosis., T9 compression fractures 03/2022 from coughing, T6 compression fracture from 05/2020 infection coughing, DM type 2, thyroid disease, s/p left axillary lymph node biopsy, 33y/o with hysterectomy for prolapsed uterus, s/p b/l partial knee replacements 2018 & 2017, s/p R anterior tibialis tendon surgery , 33y/o with hysterectomy for prolapsed uterus, s/p straightening pronated feet surgeries , s/p tonsillectomy, s/p cholecystectomy, s/p appy, s/p b/l cataracts surgeries 05/2021 presents with eczema back of knees/antecubital area as a child Saw years ago for alopecia and +AILEEN (1:160). alopecia start in 2000 - initially hair thinning then within 2 weeks completely lost all her hair (at the time she had mother , marital problems). Tried topical medications - no response. no hair on head, arms and just now getting hair on eyebrows back. 2018 pain in the both hands/wrists, L shoulder, Saw and Burning pain and swelling of hands/wrists with red blotch on back of hand L shoulder rotator cuff tear due for surgery, no scheduled yet Improved with prednisone x 1year, tapered 2019, recently on prednisone for +COVID19 in 03/2022, then treated with paxlovid 01/23/22 s/p R TKR for bone on bone, dislocation, no history of steroid injection Rinvoq 2019-presents with good response with hands/shoulders,knee pain 100% improvement with med Celebrex twice a day when working, now taking once a day with good response Calcium once a day Vitamin D 1000 International Units daily with food Prolia summer 11/2021 Abnormal Bone mineral density cori years ago Reports pain 1/10 at the worst /10 Has findings with secondary osteoarthritis of multiple joints, inflammatory arthritis/ rheumatoid arthritis without RF of multiple joints, postmenopausal osteoporosis of multiple areas, left rotator cuff tear arthropathy, Much improved with rinvoq (occasional nausea), in past oral steroids and doxycycline for cold. Had bmd 03/2023. Asthma stable. eye exam, s/p YAG for both eyes recently, will get new glasses. Warren nuñez 07/15/23 low potassium 3.4;normal wbc 9.7, hgb 12.6, plts 278, glucose 100, creat 0.5,calcium 9, alkaline phosphatase 55, ast 17, alt 15, crp<1 (normal<1.9mg/dL), esr 19 (NL0-34mm/hr), vitamin D 31.6; 05/07/22 +RF26, +CCP 205, crp 0.9 (1.3), wbc 14.66 (7.11);low vitamin D 27.3;normal rest of cbc, cmp, esr 16, uric acid 3, vitamin b12-630;negative aileen ifa, hepatitis panel, quantiferon tb; Used to attend anytime fitness walking on treadmill and bike and leg raises for exercise. labs 03/2025. taking rinvoq, celebrex, vitamin D 1000 International Units daily with food, calcium, synthroid, zofran, inhalers, ozempic NO recent oral steroids. NO eye issues. Reports hairloss, dry mouth, nosebleed, sores in mouth 12/03/24 High alkaline phosphatase 131, esr 26;low hgb 11.2;normal rest of cbc, cmp, crp <0.3, vitamin D 68.1;negative hepatitis panel, quantiferon tb; Cori 11/15/23 osteopenia (was osteoporosis) Summer 2023 pneumonia 10/14/23 saw ortho drained left shoulder (pain in Left shoulder x 5months, since replacement) may proceed with shoulder revision if no infection. 10/14/23 high esr 45, crp 3.4, DDimer 4180;negative synovial fluid crystals, quantiferon quantiferon tb Still working. Due for cruise in 03/2025 [facility]. 100% improvement from rinvoq. Walking for exercise. Legs/feet swelling in AM, better with lasix. Chronic current pain in both hands, knees, ankles. Worse in rainy weather or wintertime. Reports pain 2/10. Has minimal AM stiffness. Feels safe at home. Has enough food, supplies and medications. Overall mildly uncomfortable but happy with rheum care.Will complete workup for reported symptoms = supportive care, check labs, check bmd, improved with rinvoq/continue daily when infection free, improved with prednisone/take for flares, improved with celebrex twice a day if helpful/tolerated, tolerated prolia/restart if repeat bmd abnormal, calcium dietary, vitamin D 4000 International Units daily with food, see ortho, start prn heat/ice/otc arthritis creams, start low impact weightbearing exercise as tolerated, avoid aggravating triggers, answered all questions and concerns, patient voiced understanding. RECOMMENDATION/PLAN: Office Visit on 02/15/25 DXA-FOREARM SKELETON DXA-AXIAL SKELETON BD DXA TRABECULAR BONE SCORE (TBS) Reviewed all available labs/tests with patient Provided printed info lupus, rheumatoid arthritis, osteoarthritis, osteoporosis 02/15/25 check nonfasting labs, patient has printed orders Modified 02/15/25 LESLEY 0, pain 20%;10/01/23 LESLEY 0, pain 10%;May 07, 2022 HAQ0, pain 10-100%; May apply over the counter arthritis creams and or patches (biofreeze, icy hot, asper cream, tiger balm, capsacin, lidocaine, salon pas, voltaren gel, etc.) or over the counter pain patches to painful joints up to four times a day. Avoid contact with eyes. May take Extra Strength acetaminophen 500mg every 4-6hours for joint pain. Do not exceed 3000mg /day. Decrease stress Improve sleep May apply heat/ice 20minutes on and off to areas of pain Avoid aggravating triggers If needed, may take Calcium 1200mg daily with food in DIVIDED doses If labs normal, take Vitamin D 4000 International Units daily with food Celebrex with food for pain up to twice a day See ortho Rinvoq daily Please hold rinvoq if on antibiotics or if you have any signs/symptoms of infection. Recommend goal: exercising 30minutes 3-5 times a week Recommend weight-bearing aerobic exercises such as walking, dancing, low impact aerobics, elliptical machine, stair climbing, gardening, biking, water exercises flexibility exercises and strength training exercises Recommend avoiding high impact exercises such as jumping, running or jogging or movements where you bend forward and twist the waist, for instance- touching your toes, sit-ups, using row machine terminal carman pain recommendations per primary care provider/pain clinic Increase water prior and 1week after prolia Prolia every 6months, last one ~summer 2022 Nonfasting labs as scheduled Additional time spent with patient on healthy lifestyle, healthy food and anti-inflammatory diet (with emphasis on whole plant based diet), avoiding refined carbs/sugars and processed food, appropriate exercise (stretching, cardio and strengthening), good sleep hygiene, stress mgt, and supplementing vital deficiencies and maintaining healthy wt and BMI. Additional information provided with references and educational information. Bone Health Recommendations: -Bone Density: After age 70 yrs, sooner if new clinical risk factors, or systemic steroid use of 3 months or more. -Vitamin D supplementation recommended, optimal dose is the dose necessary to achieve Vitamin D 25-OH blood level in range of 40-60 ng/mL. -Recommended daily dose of calcium: 1000-1200mg total a day in divided doses. Calcium from dietary sources, if not sufficient, or if with h/o calcium nephrolithiasis would recommend Calcium Citrate supplement, as it is recommended to avoid calcium carbonate products, which as main dietary calcium source. The after visit summary has information on dietary calcium and instructions on reading calcium label and converting the %DV to mg. -Regular weight-bearing and muscle-strengthening exercise -Avoidance of tobacco smoking, excessive alcohol intake and excessive caffeine intake. -Fall and fracture precautions -Continued regular dental follow up visits and good dental/gum care Stressed the importance of following up with PCP and specialists for his/her chronic diseases, health, CV, and cancer screening and continued care. Will follow disease activity/progression and adjust therapeutic regimen to disease activity and severity. Discussed medication dosage, usage, goals of therapy, and side effects. Available test results were reviewed An additional 20minutes were spent outside of the patient visit to review records. Additional time spent with the patient to discuss their questions. Additional time spent with the patient devoted to discussing treatment strategy, planning, and implementation. Discussed findings, impression and plan with patient. Patient understands above plan; questions asked and answered. Patient agrees to plan as noted above. The above reflects my independent exam and review. I saw and examined the patient myself personally. Parts of the HPI, ROS, exam and impression/plan may have been copied from my personal previous clinical note and remain pertinent. Current changes have been made and documented today. Other parts or data were deleted if not relevant for today. Plan as outlined. Total time spent on this visit, with more than 50% of time spent via video & audio (virtual) or phone or face to face with patient, in consultation, and in addition to Counseling and Coordination of Care, explanation of diagnosis, and planning of further management; I spent a total of 30 minutes on the date of the service which included preparing to talk with the patient, video & audio (virtual) or phone or [id number] patient care, completing clinical documentation, obtaining and/or reviewing separately obtained history, performing a medically appropriate examination, counseling and educating the patient/family/caregiver, ordering medications, tests, or procedures, communicating with other HCPs (not separately reported), independently interpreting results (not separately reported), communicating results to the patient/family/caregiver and care coordination (not separately reported) Follow up every 6months for prolia, follow up every 4-6months, earlier if needed Recommendations to share with referring physician/Primary care physician : Dear Dr.Kim Dalila Guerrero MD : I had the pleasure of seeing your patient, Carolina Gutierrez. I have enclosed a copy of my clinic note with my assessment and recommendations for this patient. Recommendations for your consideration as you deem necessary: -Continuous follow up with Primary care physician for cardiovascular disease prevention, for age appropriate cancer screening and routine health maintenance and wellness, and infection precautions and age appropriate immunization recommended. Thank you for allowing me to participate in the care of your patient. Stevo Neff MD I will relay my findings and recommendations to the physician requesting the consult by letter/electronic shared medical records. cc Aline Guerrero MD Answers submitted by the patient for this visit: Review of [facility] (Submitted on 02/13/2025) Eye pain: No Eye redness: No Vision Disturbance: No Eye Dryness: No Nosebleeds: Yes Sores in your mouth: Yes Trouble Swallowing: No Dry Mouth: Yes Chest pain: No Leg Swelling: Yes A cough: Yes Blood when you cough: No Shortness of breath: Yes Pain with breathing: No Heartburn: No Abdominal pain: No Diarrhea: No Black tarry stools: No Blood in urine: No Pain or burning with urination: No Joint pain or stiffness: Yes Muscle weakness: No Muscle aches: No Joint swelling: No Morning Stiffness in Joints: Yes A rash: No Skin Color Changes: No Hair Loss: Yes Nail Changes: No Headaches: No Numbness: No Memory Loss: No Swollen Glands: No MYCHART AMBULATORY VISIT INTAKE QUESTIONNAIRE Question 02/13/2025 8:10 PM EDT - Filed by Patient Has the patient had unintentional weight loss or gain? No Do you have concerns about personal safety or safety in the home? No Has the Patient Had 2 Falls in the Last Year or 1 Fall with Injury or Currently Using an Ambulatory Assistive Device (Walker, Cane, Wheelchair, Crutches, etc.) No Are you having pain associated with your visit today? No [facility] MYCHART ADDITIONAL DEMO Question 02/13/2025 8:10 PM EDT - Filed by Patient Many providers are now using a new secure tri that listens and drafts a note of your visit. If you prefer us not to use this technology, tell your provider at the start of your visit. I acknowledge Is this visit related to Workers' Compensation? No [facility] PROMIS CAT V2.0-PHYSICAL FUNCTION-28 DAYS Question 02/13/2025 8:11 PM EDT - Filed by Patient Does your health now limit you in doing two hours of physical labor? Not at all Does your health now limit you in doing strenuous activities such as backpacking, skiing, playing tennis, bicycling or jogging? Not at all Are you able to run five miles (8 km)? With some difficulty Are you able to run or jog for two miles (3 km)? With a little difficulty Does your health now limit you in doing vigorous activities, such as running, lifting heavy objects, participating in strenuous sports? Very little PROMIS Physical Function T-Score (range: 10 - 90) 58 (within normal limits) PROMIS Physical Function Percentile (range: 0 - 100) 79 [facility] PROMIS CAT V1.0 - FATIGUE-28 DAYS Question 02/13/2025 8:12 PM EDT - Filed by Patient How often did you have to push yourself to get things done because of your fatigue? Rarely I have trouble starting things because I am tired A little bit How much were you bothered by your fatigue on average? A little bit I feel fatigued A little bit PROMIS Fatigue T-Score (range: 10 - 90) 48 (within normal limits) PROMIS Fatigue Percentile (range: 0 - 100) 58 [facility] PROMIS CAT V1.1-PAIN INTERFERENCE-28 DAYS Question 02/13/2025 8:13 PM EDT - Filed by Patient How much did pain interfere with your day to day activities? A little bit How much did pain interfere with your ability to participate in social activities? Not at all How much did pain interfere with work around the home? Not at all How much did pain interfere with the things you usually do for fun? A little bit PROMIS Pain Interference T-Score (range: 10 - 90) (range: 10 - 90) 52 (within normal limits) PROMIS Pain Interference Percentile (range: 0 - 100) 42 [facility] RAPID 3 Question 02/13/2025 8:15 PM EDT - Filed by Patient Dress yourself, including typing shoelaces and doing buttons? Without ANY difficulty Get in and out of bed? Without ANY difficulty Lift a full cup or glass to your mouth? With SOME difficulty Walk outdoors on flat ground? Without ANY difficulty Wash and dry your entire body? Without ANY difficulty Bend down to apple picking supervisor clothing from the floor? Without ANY difficulty Turn regular faucets on and off? Without ANY difficulty Get in and out of a car, bus, train, or airplane? Without ANY difficulty Walk tow miles or three kilometers, if you wish? Without ANY difficulty Participate in recreational activities and sports as you would like, if you wish? Without ANY difficulty Get a good night's sleep? With SOME difficulty Deal with feelings of anxiety or being nervous? Without ANY difficulty Deal with feelings of depression or feeling blue? Without ANY difficulty RAPID 3 Pain Level 2 RAPID 3 HOW DOING OVERALL 1 RAPID 3 Functional Status Score (range: 0 - 10) 0.33 PAIN LEVEL (range: 0 - 10) 2 Global Estimate (PTGE) (range: 0 - 10) 1 RAPID 3 CUMULATIVE SCORE (range: 0 - 30) 3.33 RAPID 3 Weighed Score (range: 0 - 10) 1.11 (Minimal to no symptoms) Weighed Score Percentage Change Compared to Last (range: -500 - 500) 0 [facility] QUESTIONNAIRE Question 02/13/2025 8:10 PM EDT - Filed by Patient Has the patient had unintentional weight loss or gain? No Do you have concerns about personal safety or safety in the home? No Has the Patient Had 2 Falls in the Last Year or 1 Fall with Injury or Currently Using an Ambulatory Assistive Device (Walker, Cane, Wheelchair, Crutches, etc.) No Are you having pain associated with your visit today? No [facility] MYCHART ADDITIONAL DEMO Question 02/13/2025 8:10 PM EDT - Filed by Patient Many providers are now using a new secure tri that listens and drafts a note of your visit. If you prefer us not to use this technology, tell your provider at the start of your visit. I acknowledge Is this visit related to Workers' Compensation? No [facility] PROMIS CAT V2.0-PHYSICAL FUNCTION-28 DAYS Question 02/13/2025 8:11 PM EDT - Filed by Patient Does your health now limit you in doing two hours of physical labor? Not at all Does your health now limit you in doing strenuous activities such as backpacking, skiing, playing tennis, bicycling or jogging? Not at all Are you able to run five miles (8 km)? With some difficulty Are you able to run or jog for two miles (3 km)? With a little difficulty Does your health now limit you in doing vigorous activities, such as running, lifting heavy objects, participating in strenuous sports? Very little PROMIS Physical Function T-Score (range: 10 - 90) 58 (within normal limits) PROMIS Physical Function Percentile (range: 0 - 100) 79 [facility] PROMIS CAT V1.0 - FATIGUE-28 DAYS Question 02/13/2025 8:12 PM EDT - Filed by Patient How often did you have to push yourself to get things done because of your fatigue? Rarely I have trouble starting things because I am tired A little bit How much were you bothered by your fatigue on average? A little bit I feel fatigued A little bit PROMIS Fatigue T-Score (range: 10 - 90) 48 (within normal limits) PROMIS Fatigue Percentile (range: 0 - 100) 58 [facility] PROMIS CAT V1.1-PAIN INTERFERENCE-28 DAYS Question 02/13/2025 8:13 PM EDT - Filed by Patient How much did pain interfere with your day to day activities? A little bit How much did pain interfere with your ability to participate in social activities? Not at all How much did pain interfere with work around the home? Not at all How much did pain interfere with the things you usually do for fun? A little bit PROMIS Pain Interference T-Score (range: 10 - 90) (range: 10 - 90) 52 (within normal limits) PROMIS Pain Interference Percentile (range: 0 - 100) 42 MYC RAPID 3 Question 02/13/2025 8:15 PM EDT - Filed by Patient Dress yourself, including typing shoelaces and doing buttons? Without ANY difficulty Get in and out of bed? Without ANY difficulty Lift a full cup or glass to your mouth? With SOME difficulty Walk outdoors on flat ground? Without ANY difficulty Wash and dry your entire body? Without ANY difficulty Bend down to apple picking supervisor clothing from the floor? Without ANY difficulty Turn regular faucets on and off? Without ANY difficulty Get in and out of a car, bus, train, or airplane? Without ANY difficulty Walk tow miles or three kilometers, if you wish? Without ANY difficulty Participate in recreational activities and sports as you would like, if you wish? Without ANY difficulty Get a good night's sleep? With SOME difficulty Deal with feelings of anxiety or being nervous? Without ANY difficulty Deal with feelings of depression or feeling blue? Without ANY difficulty RAPID 3 Pain Level 2 RAPID 3 HOW DOING OVERALL 1 RAPID 3 Functional Status Score (range: 0 - 10) 0.33 PAIN LEVEL (range: 0 - 10) 2 Global Estimate (PTGE) (range: 0 - 10) 1 RAPID 3 CUMULATIVE SCORE (range: 0 - 30) 3.33 RAPID 3 Weighed Score (range: 0 - 10) 1.11 (Minimal to no symptoms) Weighed Score Percentage Change Compared to Last (range: -500 - 500) 0 documented in this encounter [facility] 02-15-2025 Note HNO ID: [id number] Author: STEVO NEFF MD Service: ? Author Type: Physician Type: Progress Notes Filed: 02/15/2025 08:06 Note Text: Face to face Follow up for rheumatoid arthritis/+RF/low vitamin D/high crp ANDesr Today's visit 02/15/25:labs 03/2025. taking rinvoq, celebrex, vitamin D 1000 International Units daily with food, calcium, synthroid, zofran, inhalers, ozempic NO recent oral steroids. NO eye issues. Reports hairloss, dry mouth, nosebleed, sores in mouth 12/03/24 High alkaline phosphatase 131, esr 26;low hgb 11.2;normal rest of cbc, cmp, crp <0.3, vitamin D 68.1;negative hepatitis panel, quantiferon tb; Cori 11/15/23 osteopenia (was osteoporosis) Summer 2023 pneumonia 10/14/23 saw ortho drained left shoulder (pain in Left shoulder x 5months, since replacement) may proceed with shoulder revision if no infection. 10/14/23 high esr 45, crp 3.4, DDimer 4180;negative synovial fluid crystals, quantiferon quantiferon tb Still working. Due for cruise in 03/2025 [facility]. 100% improvement from rinvoq. Walking for exercise. Legs/feet swelling in AM, better with lasix. Chronic current pain in both hands, knees, ankles. Worse in rainy weather or wintertime. Reports pain 08/10. Has minimal AM stiffness. Feels safe at home. Has enough food, supplies and medications. Overall mildly uncomfortable but happy with rheum care. No falls/fx/trauma/illness/oral sores/rash/hairloss/jaw pain/dysphagia/epistaxis/hemopt ysis since last visit. No adverse effects with meds. No other complaints. Patient denies fever, chills, cp, dyspnea, nausea, vomiting, night sweats, scalp tenderness, visual changes, [place], bowel/bladder changes, weight changes or other complaints. Last visit supportive care, check labs, obtain bmd results, follow up with primary care provider for infection care, improved with rinvoq/continue daily when infection free, improved with prednisone/take for flares, improved with celebrex twice a day if helpful/tolerated, tolerating prolia every 6months/next due ~10/08/23 with primary care provider, calcium dietary, increase vitamin D 4000 International Units daily with food, see ortho, start prn heat/ice/otc arthritis creams, start low impact weightbearing exercise as tolerated, avoid aggravating triggers, 10/01/23:not seen in 2years. Due for labs. Much improved with rinvoq (occasional nausea), celebrex twice a day, vitamin D script now taking vitamin D 2000 International Units daily with food, synthroid, last week recent oral steroids and doxycycline for cold. Had bmd 03/2023. Due for next prolia 10/08/23 with primary care provider. Did fine with last prolia. No dental work planned. Not taking antibiotics. No signs or symptoms of infection. Asthma stable. Recently eye exam, s/p YAG for both eyes recently, will get new glasses. Has orders for labs this month Warren nuñez 07/15/23 low potassium 3.4;normal wbc 9.7, hgb 12.6, plts 278, glucose 100, creat 0.5,calcium 9, alkaline phosphatase 55, ast 17, alt 15, crp<1 (normal<1.9mg/dL), esr 19 (NL0-34mm/hr), vitamin D 31.6; 05/07/22 +RF26, +CCP 205, crp 0.9 (1.3), wbc 14.66 (7.11);low vitamin D 27.3;normal rest of cbc, cmp, esr 16, uric acid 3, vitamin b12-630;negative aileen ifa, hepatitis panel, quantiferon tb; 100% improvement from rinvoq. Goint to anytime fitness walking on treadmill and bike and leg raises for exercise. Mild leg edema/ swelling. Chronic current pain in knees, shoulders, better hands/wrists Reports pain 1/10. Has few min minimal AM stiffness. Feels safe at home. Has enough food, supplies and medications. Overall mildly uncomfortable but happy with rheum care. No falls/fx/trauma/illness/oral sores/rash/hairloss/jaw pain/dysphagia/epistaxis/hemopt ysis since last visit. No adverse effects with meds. No other complaints. Patient denies fever, chills, cp, dyspnea, nausea, vomiting, night sweats, scalp tenderness, visual changes, [place], bowel/bladder changes, weight changes or other complaints. Last visit supportive care, improved with rinvoq/continue daily, improved with prednisone/take for flares, improved with celebrex/increase to twice a day if helpful/tolerated, prolia every 6months/next due ~05/2022, calcium/vitamin D daily, see ortho, start prn heat/ice/otc arthritis creams, start low impact weightbearing exercise as tolerated, avoid aggravating triggers, May 07, 2022 SUBJECTIVE Ms. Gutierrez is a 61 year old female who presents for rheumatoid arthritis eval. eczema back of knees/antecubital area as a child Saw years ago for alopecia and +AILEEN (1:160). alopecia start in 2000 - initially hair thinning then within 2 weeks completely lost all her hair (at the time she had mother , marital problems). Tried topical medications - no response. no hair on head, arms and just now getting hair on eyebrows back. 2019 pain in the both hands/wrists, L shoulder, Saw and Burning pain an (more content not included)... [facility] 02-15-2025 Instructions Stevo Neff MD - 02/15/2025 6:37 AM EDT May apply over the counter arthritis creams and or patches (biofreeze, icy hot, asper cream, tiger balm, capsacin, lidocaine, salon pas, voltaren gel, etc.) or over the counter pain patches to painful joints up to four times a day. Avoid contact with eyes. May take Extra Strength acetaminophen 500mg every 4-6hours for joint pain. Do not exceed 3000mg /day. Decrease stress Improve sleep May apply heat/ice 20minutes on and off to areas of pain Avoid aggravating triggers If needed, may take Calcium 1200mg daily with food in DIVIDED doses If labs normal, take Vitamin D 4000 International Units daily with food Celebrex with food for pain up to twice a day See ortho Rinvoq daily Please hold rinvoq if on antibiotics or if you have any signs/symptoms of infection. Recommend goal: exercising 30minutes 3-5 times a week Recommend weight-bearing aerobic exercises such as walking, dancing, low impact aerobics, elliptical machine, stair climbing, gardening, biking, water exercises flexibility exercises and strength training exercises Recommend avoiding high impact exercises such as jumping, running or jogging or movements where you bend forward and twist the waist, for instance- touching your toes, sit-ups, using row machine skilled nursing pain recommendations per primary care provider/pain clinic Increase water prior and 1week after prolia Prolia every 6months, last one ~summer 2021, Next bone mineral density after 11/14/25 Nonfasting labs as scheduled Thank you. 6/5/25 High alkaline phosphatase 131, esr 26;low hgb 11.2;normal rest of cbc, cmp, crp <0.3, vitamin D 68.1;negative hepatitis panel, quantiferon tb; [place] 11/15/23 osteopenia (was osteoporosis) L1-L4 1.238g/cm2, tscore 0.5; Dual fem mean 0.763g/cm2, tscore-2; Left fem total 0.817g/cm2, tscore1.6, zscore-0.7; Left total fem 0.843g/cm2, tscore-1.3, zscore-0.8; Left troch 0.807g/cm2, tscore -2.1, zscore -1.7; Right neck fem 0.713g/cm2, tscore-2.3, zscore-1.5; Left total fem 0.807g/cm2, tscore-1.6, zscore-1.1; Right troch 0.603g/cm2, tscore-2.2, zscore-1.7; 10/14/23 high esr 45, crp 3.4, DDimer 4180;negative synovial fluid crystals, quantiferon tb BONE MINERAL DENSITY PATIENT INSTRUCTIONS Bone mineral density testing measures the amount of calcium in certain parts of your bones. This information determines how strong your bones are. The test is used to detect osteoporosis, a disease in which the bone's mineral content and density are low, increasing a person's risk of fractures. The lumbar spine (lower back) and the hip are the skeletal sites usually examined. For the test, remember that: 1. You cannot take this test if you are . 2. Eat a normal diet on the day of the test. 3. Take your medications as you normally would. 4. DO NOT take calcium supplements (such as Tums) for 24 hours before the test. 5. On the day of the test, leave valuables (jewelry or credit cards) at home. 6. The test should be performed prior to oral, rectal or IV contrast studies, or at least 7 days after any of these studies. For the test, you may be asked to wear a hospital gown. You will lie on your back, on a padded table, in a comfortable position. Generally, you can resume your usual activities immediately. documented in this encounter [facility] 02-01-2025 History of Presen t illness Narrative Carolina Gutierrez returns to the office today to discuss the results of her immunologic studies. Albuterol Pulmicort Dupixent Pepcid Malia Flonase Wixela DuoNeb Synthroid Toprol Singulair Spiriva Rinvoq IgG = 828 IgA = 208 IgM = 86 IgE = 57 Pneumococcal subtiters = 14/23 Diptheria = 0.12 Tet = 0.26 She has been doing well since we last saw her. She was placed on Dupixent and feels this has been very beneficial for her asthma symptoms. She has fewer respiratory infections since starting this. She has a cough when she laughs. She takes Rinvoq for arthritis. She has been having some dyspnea on exertion with walking one mile. EXAM The patient appears comfortable in the office today. Lungs are clear to auscultation bilaterally. The oral mucosa is pink and healthy without any lesions or ulcers. The palate elevates in the midline. The nasal mucosa is pink and healthy. There is no epistaxis mucopus or nasal polyposis noted. The nasal septum is approximately in the midline. The skin is clear of any lesions, excoriations, or erythema. IMPRESSION: Moderate persistent asthma - We agreed she would try albuterol 20 min before her walk and continue Wixela and Spiriva. Pneumonia - I provided reassurance regarding her normal immunologic studies I let her know that her risk of pneumonia going forward is reasonably low. Follow-up in 12 months or sooner should problems arise. documented in this encounter [facility] 12-16-2024 Telephone encounter Note Please Call patient if MyChart note not read to review results/released to My Chart if tests completed at [facility]: One borderline inflammatory test- will monitor with primary care provider. Stable rest of labs and normal other inflammatory test. Continue same vitamin D intake with food. Recheck nonfasting labs in 3months.The orders have been placed. Rinvoq sent to [facility]. Happy to further review and discuss at follow up visit. Continue rest of treatment plan per instructions at last office visit. Thank you. 12/03/24 High alkaline phosphatase 131, esr 26;low hgb 11.2;normal rest of cbc, cmp, crp <0.3, vitamin D 68.1;negative hepatitis panel, quantiferon tb; [place] 11/15/23 osteopenia (was osteoporosis) L1-L4 1.238g/cm2, tscore 0.5; Dual fem mean 0.763g/cm2, tscore-2; Left fem total 0.817g/cm2, tscore1.6, zscore-0.7; Left total fem 0.843g/cm2, tscore-1.3, zscore-0.8; Left troch 0.807g/cm2, tscore -2.1, zscore -1.7; Right neck fem 0.713g/cm2, tscore-2.3, zscore-1.5; Left total fem 0.807g/cm2, tscore-1.6, zscore-1.1; Right troch 0.603g/cm2, tscore-2.2, zscore-1.7; 10/14/23 saw ortho drained left shoulder (pain in Left shoulder x 5months, since replacement) may proceed with shoulder revision if no infection. 10/14/23 high esr 45, crp 3.4, DDimer 4180;negative synovial fluid crystals, quantiferon tb [facility] 12-16-2024 Miscellaneous Notes Please Call patient if MyChart note not read to review results/released to My Chart if tests completed at [facility]: One borderline inflammatory test- will monitor with primary care provider. Stable rest of labs and normal other inflammatory test. Continue same vitamin D intake with food. Recheck nonfasting labs in 3months.The orders have been placed. Rinvoq sent to [facility]. Happy to further review and discuss at follow up visit. Continue rest of treatment plan per instructions at last office visit. Thank you. 12/03/24 High alkaline phosphatase 131, esr 26;low hgb 11.2;normal rest of cbc, cmp, crp <0.3, vitamin D 68.1;negative hepatitis panel, quantiferon tb; [place] 11/15/23 osteopenia (was osteoporosis) L1-L4 1.238g/cm2, tscore 0.5; Dual fem mean 0.763g/cm2, tscore-2; Left fem total 0.817g/cm2, tscore1.6, zscore-0.7; Left total fem 0.843g/cm2, tscore-1.3, zscore-0.8; Left troch 0.807g/cm2, tscore -2.1, zscore -1.7; Right neck fem 0.713g/cm2, tscore-2.3, zscore-1.5; Left total fem 0.807g/cm2, tscore-1.6, zscore-1.1; Right troch 0.603g/cm2, tscore-2.2, zscore-1.7; 10/14/23 saw ortho drained left shoulder (pain in Left shoulder x 5months, since replacement) may proceed with shoulder revision if no infection. 10/14/23 high esr 45, crp 3.4, DDimer 4180;negative synovial fluid crystals, quantiferon tb Lab results noted from 12/03/2024. documented in this encounter [facility] 12-15-2024 Telephone encounter Note Lab results noted from 12/03/2024. [facility] 12-03-2024 Telephone encounter Note Pt called back, she will go to get labs today [facility] 12-03-2024 Miscellaneous Notes Pt called back, she will go to get labs today Called patient LM on to get labs completed Stated refill has been refused- once labs done, refill will be completed Louis Ambrose December 03, 2024 8:16 AM Not seen since 09/2023. Due for labs. Please link orders. Otherwise, please defer medication refills to current provider Thank you. Images from the original note were not included. Most recent Rheumatology visit: 10/01/2023 (with Stevo Neff) Last Bone Density on file: None on file Rheumatology Care Team: None on file Recent Office Visits - This Specialty 10/01/2023 Rheumatoid arthritis of multiple sites without rheumatoid factor (HCC) Rheumatology Stevo Neff MD 05/07/2022 Rheumatoid arthritis of multiple sites without rheumatoid factor (HCC) Rheumatology Stevo Neff MD 10/10/2005 IMMUNOLOGICAL FIND OTHR OR UNSPEC Rheumatology Laura Harper Upcoming Rheumatology Appointments - Next 365 Days Visit Type Date Time Department [facility] MED[facility] 02/15/2025 7:40 AM [facility] CBC: Latest Ref Rng & Units 06/08/2024 [...] PANEL [SQCMP] 08/04/24 08/04/25 08/04/24 Auth. provider: Stevo Neff MD Assoc. diagnoses: Elevated LFTs COMPLETE BLOOD COUNT [SQCBC] 08/04/24 08/04/25 08/04/24 Auth. provider: Stevo Neff MD Assoc. diagnoses: Anemia of chronic disease SEDIMENTATION RATE, WESTERGREN [SQWSR] 08/04/24 08/04/25 08/04/24 Auth. provider: Stevo Neff MD Assoc. diagnoses: Elevated sed rate, Elevated C-reactive protein (CRP) C-REACTIVE PROTEIN [SQCRP] 08/04/24 08/04/25 08/04/24 Auth. provider: Stevo Neff MD Assoc. diagnoses: Elevated sed rate, Elevated C-reactive protein (CRP) VITAMIN D 25 HYDROXY [SQVITD] 08/04/24 08/04/25 08/04/24 Auth. provider: Stevo Neff MD Assoc. diagnoses: Vitamin D deficiency HEP REMOTE PANEL BL [SQHREMOP] 08/04/24 08/04/25 08/04/24 Auth. provider: Stevo Neff MD Assoc. diagnoses: Elevated LFTs BLOOD TB SCREEN [SQINFTBP] 08/04/24 08/04/25 08/04/24 Auth. provider: Stevo Neff MD Assoc. diagnoses: Screening-pulmonary TB documented in this encounter [facility] 12-03-2024 Telephone encounter Note Called patient LM on VM to get labs completed Stated refill has been refused- once labs done, refill will be completed Louis Ambrose December 03, 2024 8:16 AM [facility] 12-02-2024 Telephone encounter Note Not seen since 09/2023. Due for labs. Please link orders. Otherwise, please defer medication refills to current provider Thank you. [facility] 12-01-2024 Telephone encounter Note Images from the original note were not included. Most recent Rheumatology visit: 10/01/2023 (with Stevo Neff) Last Bone Density on file: None on file Rheumatology Care Team: None on file Recent Office Visits - This Specialty 10/01/2023 Rheumatoid arthritis of multiple sites without rheumatoid factor (HCC) Rheumatology Stevo Neff MD 05/07/2022 Rheumatoid arthritis of multiple sites without rheumatoid factor (HCC) Rheumatology Stevo Neff MD 10/10/2005 IMMUNOLOGICAL FIND OTHR OR UNSPEC Rheumatology Laura Harper Upcoming Rheumatology Appointments - Next 365 Days Visit Type Date Time Department [facility] MEDICAL 02/15/2025 7:40 AM [facility] CBC: Latest Ref Rng & Units 06/08/2024 [...] PANEL [SQCMP] 08/04/24 08/04/25 08/04/24 Auth. provider: Stevo Neff MD Assoc. diagnoses: Elevated LFTs COMPLETE BLOOD COUNT [SQCBC] 08/04/24 08/04/25 08/04/24 Auth. provider: Stevo Neff MD Assoc. diagnoses: Anemia of chronic disease SEDIMENTATION RATE, WESTERGREN [SQWSR] 08/04/24 08/04/25 08/04/24 Auth. provider: Stevo Neff MD Assoc. diagnoses: Elevated sed rate, Elevated C-reactive protein (CRP) C-REACTIVE PROTEIN [SQCRP] 08/04/24 08/04/25 08/04/24 Auth. provider: Stevo Neff MD Assoc. diagnoses: Elevated sed rate, Elevated C-reactive protein (CRP) VITAMIN D 25 HYDROXY [SQVITD] 08/04/24 08/04/25 08/04/24 Auth. provider: Stevo Neff MD Assoc. diagnoses: Vitamin D deficiency HEP REMOTE PANEL BL [SQHREMOP] 08/04/24 08/04/25 08/04/24 Auth. provider: Stevo Neff MD Assoc. diagnoses: Elevated LFTs BLOOD TB SCREEN [SQINFTBP] 08/04/24 08/04/25 08/04/24 Auth. provider: Stevo Neff MD Assoc. diagnoses: Screening-pulmonary TB [facility] 11-20-2024 Evaluation note Diagnosis Onset Date Resolution Laceration of left knee acute November 20, 2024 3 :52pm Left knee injury acute October 3:52pm [facility] Work Phone: [phone]) 928-410305-23-2025 Evaluation note* Diagnosis Onset Date Resolution Status Admit Date Laceration of left knee acute M ay 2024 3:52pm Left knee injury acute October 3:52pm Encounter for removal of sutures noneactive December 08, 2024 9:20am Cellulitis of leg, left acute J une 2024 12:05pm [facility] Work Phone: 1(570) 108-390803-03-2025 History of Present illness Narrative* Adam Hernandez MD - 08/31/2024 10:40 AM EST Carolina Gutierrez returns to the office today for a follow-up assessment for severe persistent asthma. She recently has influenza A and she still has mild residual SOB from this. Asthma control test todayis 11. She was told she had pneumonia last week in the left lung. She had the prevnar last year. She is on Wixela and Spiriva. She was on oral corticosteroid last week and feels that this was helpful. EXAM The patient appears comfortable in the office today. Lungs are clear to auscultation bilaterally. The oral mucosa is pink and healthy without any lesions or ulcers. The palate elevates in the midline. The nasal mucosa is pink and healthy. There is no epistaxis mucopus or nasal polyposis noted. The nasal septum is approximately in the midline. The skin is clear of any lesions, excoriations, or erythema. Spirometry performed in the office today under direct physician supervision shows an FEV1 of slightly over 50 percent of predicted with an FVC of around the same. She has slight scooping of the flow volume loop. Exhaled nitric oxide is normal at 6 parts per billion. IMPRESSION: Pneumonia - Given her recent episode of pneumonia we agreed to obtain a humoral immune survey and have her follow-up in several weeks to discuss the results. Severe persistent asthma - budesonide QID in nebulizer and continue wixela and Spiriva. Refill bothinhalers - prednisone on hand. [facility] 4 months. Given her recent increase in asthma symptomsand desire to avoid oral steroids given her history of diabetes we agreed to use budesonide in the nebulizer 3 or 4 times per day continue her Wixela and Spiriva and have prednisone on hand which shewill consider initiating if several days with budesonide is not beneficial. Follow-up was arranged in 4 months for reassessment or sooner should problems arise. [facility] in [id number] Telephone encounter Note* Telephone Encounter - Consuelo Scott OCCA - 08/13/2024 3:56 PM EST Images from the original note were not included. Most recent Rheumatology visit: 10/01/2023 (with Stevo Neff) Last Bone Density on file: None on file Rheumatology Care Team: None on file Recent Office Visits - This Specialty 10/01/2023 Rheumatoid arthritis of multiple sites without rheumatoid factor (HCC) Rheumatology Stevo Neff MD 05/07/2022 Rheumatoid arthritis of multiple sites without rheumatoid factor (HCC) Rheumatology Stevo Neff MD 10/10/2005 IMMUNOLOGICAL FIND OTHR OR UNSPEC Rheumatology Laura Harper Upcoming Rheumatology Appointments - Next 365 Days Visit Type Date Time Department [facility] MED[facility] 02/15/2025 7:40 AM [facility] CBC: Latest Ref Rng & Units 06/08/2024 [...] PANEL [SQCMP] 08/04/24 08/04/25 08/04/24 Auth. provider: Stevo Neff MD Assoc. diagnoses: Elevated LFTs COMPLETE BLOOD COUNT [SQCBC] 08/04/24 08/04/25 08/04/24 Auth. provider: Stevo Neff MD Assoc. diagnoses: Anemia of chronic disease SEDIMENTATION RATE, WESTERGREN [SQWSR] 08/04/24 08/04/25 08/04/24 Auth. provider: Stevo Neff MD Assoc. diagnoses: Elevated sed rate, Elevated C-reactive protein (CRP) C-REACTIVE PROTEIN [SQCRP] 08/04/24 08/04/25 08/04/24 Auth. provider: Stevo Neff MD Assoc. diagnoses: Elevated sed rate, Elevated C-reactive protein (CRP) VITAMIN D 25 HYDROXY [SQVITD] 08/04/24 08/04/25 08/04/24 Auth. provider: Stevo Neff MD Assoc. diagnoses: Vitamin D deficiency HEP REMOTE PANEL BL [SQHREMOP] 08/04/24 08/04/25 08/04/24 Auth. provider: Stevo Neff MD Assoc. diagnoses: Elevated LFTs BLOOD TB SCREEN [SQINFTBP] 08/04/24 08/04/25 08/04/24 Auth. provider: Stevo Neff MD Assoc. diagnoses: Screening-pulmonary TB [facility]02-13-2025 Miscellaneous Notes* Telephone Encounter - Consuelo Scott OCCA - 08/13/2024 3:56 PM EST Images from the original note were not included. Most recent Rheumatology visit: 10/01/2023 (with Stevo Neff) Last Bone Density on file: None on file Rheumatology Care Team: None on file Recent Office Visits - This Specialty 10/01/2023 Rheumatoid arthritis of multiple sites without rheumatoid factor (HCC) Rheumatology Stevo Neff MD 05/07/2022 Rheumatoid arthritis of multiple sites without rheumatoid factor (HCC) Rheumatology Stevo Neff MD 10/10/2005 IMMUNOLOGICAL FIND OTHR OR UNSPEC Rheumatology Laura Harper Upcoming Rheumatology Appointments - Next 365 Days Visit Type Date Time Department [facility] 02/15/2025 7:40 AM [facility] CBC: Latest Ref Rng & Units 06/08/2024 [...] PANEL [SQCMP] 08/04/24 08/04/25 08/04/24 Auth. provider: Stevo Neff MD Assoc. diagnoses: Elevated LFTs COMPLETE BLOOD COUNT [SQCBC] 08/04/24 08/04/25 08/04/24 Auth. provider: Stevo Neff MD Assoc. diagnoses: Anemia of chronic disease SEDIMENTATION RATE, WESTERGREN [SQWSR] 08/04/24 08/04/25 08/04/24 Auth. provider: Stevo Neff MD Assoc. diagnoses: Elevated sed rate, Elevated C-reactive protein (CRP) C-REACTIVE PROTEIN [SQCRP] 08/04/24 08/04/25 08/04/24 Auth. provider: Stevo Neff MD Assoc. diagnoses: Elevated sed rate, Elevated C-reactive protein (CRP) VITAMIN D 25 HYDROXY [SQVITD] 08/04/24 08/04/25 08/04/24 Auth. provider: Stevo Neff MD Assoc. diagnoses: Vitamin D deficiency HEP REMOTE PANEL BL [SQHREMOP] 08/04/24 08/04/25 08/04/24 Auth. provider: Stevo Neff MD Assoc. diagnoses: Elevated LFTs BLOOD TB SCREEN [SQINFTBP] 08/04/24 08/04/25 08/04/24 Auth. provider: Stevo Neff MD Assoc. diagnoses: Screening-pulmonary TB [facility] Discharge instructions Patient Education 08/09/2024 15:53:48 Oral Thrush, Adult, [id number] Oral Thrush, Adult Oral thrush is an infection in your mouth and throat and on your tongue. It causes white patches toform in your mouth and on your tongue. Many cases of thrush are mild. But, sometimes, thrush can be serious. People who have a weak body defense system (immune system) or other diseases can be affected more. What are the causes? This condition is caused by a type of fungus called yeast. The fungus is normally present in small amounts in the mouth and nose. If a person has a long- term illness or a weak body defense system, the fungus can grow and spread quickly. This causes thrush. What increases the risk? You are more likely to develop this condition if: You have a weak body defense system. You are an older adult. You have diabetes, cancer, or HIV. You have a dry mouth. You are or . You do not take good care of your teeth. This risk is greater for people who have false teeth (dentures). You use antibiotic or steroid medicines. What are the signs or symptoms? Symptoms of this condition include: A burning feeling in the mouth and throat. White patches that stick to the mouth and tongue. A bad taste in the mouth or trouble tasting foods. A feeling like you have cotton in your mouth. Pain when you eat and swallow. Not wanting to eat as much as usual. Cracking at the corners of the mouth. How is this treated? This condition is treated with medicines called antifungals. These medicines prevent a fungus from growing. The medicines are either put right on the area (topical) or swallowed (oral). Your doctor will also treat other problems that you may have, such as diabetes or HIV. Follow these instructions at home: Helping with pain and soreness To lessen your pain: Drink cold liquids, like water and iced tea. Eat frozen ice pops or frozen juices. Eat foods that are easy to swallow, like gelatin and ice cream. Drink from a straw if you have too much pain in your mouth. General instructions Take or use [id number] and prescription medicines only as told by your doctor. Eat plain yogurt that has live cultures in it. Read the label to make sure that there are live cultures in your yogurt. If you wear false teeth: ?Take them out before you go to bed. ?[place] them well. ?Soak them in a glass cleaner. Rinse your mouth with warm salt-water many times a day. To make the salt-water mixture, dissolve 1 teaspoon (3 6 g) of salt in 1 cup (237 mL) of warm water. Contact a doctor if: Your problems do not get better within 7 days of treatment. Your infection is spreading. This may show as white areas on the skin outside of your mouth. You are nursing your baby and you have redness and pain in the nipples. Summary Oral thrush is an infection in your mouth and throat. It is caused by a fungus. You are more likely to get this condition if you have a weak body defense system. Diseases like diabetes, cancer, or HIV also add to your risk. This condition is treated with medicines called antifungals. Contact a doctor if you do not get better within 7 days of starting treatment. This information is not intended to replace advice given to you by your health care provider. Make sure you discuss any questions you have with your health care provider. Document Revised: 06/03/2023 Document Reviewed: 06/03/2023 [employer] Patient Education 2023 [email or web address]. 08/09/2024 15:53:43 Influenza, Adult, Dcny-bo-Jzsp Influenza, Adult Influenza is also called the flu. It is an infection in the lungs, nose, and throat (respiratory tract). It spreads easily from person to person (is contagious). The flu causes symptoms that are like a cold, along with high fever and body aches. What are the causes? This condition is caused by the influenza virus. You can get the virus by: Breathing in droplets that are in the air after a person infected with the flu coughed or sneezed. Touching something that has the virus on it and then touching your mouth, nose, or eyes. What increases the risk? Certain things may make you more likely to get the flu. These include: Not washing your hands often. Having close contact with many people during cold and flu season. Touching your mouth, eyes, or nose without first washing your hands. Not getting a flu shot every year. You may have a higher risk for the flu, and serious problems, such as a lung infection (pneumonia),if you: Are older than 65. Are . Have a weakened disease-fighting system (immune system) because of a disease or because you are taking certain medicines. Have a long-term (chronic) condition, such as: ?Heart, kidney, or lung disease. ?Diabetes. ?Asthma. Have a liver disorder. Are very overweight (morbidly obese). Have anemia. What are the signs or symptoms? Symptoms usually begin suddenly and last 4 14 days. They may include: Fever and chills. Headaches, body aches, or muscle aches. Sore throat. Cough. Runny or stuffy (congested) nose. Feeling discomfort in your chest. Not wanting to eat as much as normal. Feeling weak or tired. Feeling dizzy. Feeling sick to your stomach or throwing up. How is this treated? If the flu is found early, you can be treated with antiviral medicine. This can help to reduce how bad the illness is and how long it lasts. This may be given by mouth or through an IV tube. Taking care of yourself at home can help your symptoms get better. Your doctor may want you to: Take cwrz-iyu-fhebsdb medicines. Drink plenty of fluids. The flu often goes away on its own. If you have very bad symptoms or other problems, you may be treated in a hospital. Follow these instructions at home: Activity Rest as needed. Get plenty of sleep. Stay home from work or school as told by your doctor. ?Do not leave home until you do not have a fever for 24 hours without taking medicine. ?Leave home only to go to your doctor. Eating and drinking Take an ORS (oral rehydration solution). This is a drink that is sold at pharmacies and stores. Drink enough fluid to keep your pee pale yellow. Drink clear fluids in small amounts as you are able. Clear fluids include: ?Water. ?Ice chips. ?Fruit juice mixed with water. ?Low-calorie sports drinks. Eat bland foods that are easy to digest. Eat small amounts as you are able. These foods include: ?Bananas. ?Applesauce. ?Rice. ?Lean meats. ?[place]. ?Crackers. Do not eat or drink: ?Fluids that have a lot of sugar or caffeine. ?Alcohol. ?Spicy or fatty foods. General instructions Take mznz-bzy-uurqwae and prescription medicines only as told by your doctor. Use a cool mist humidifier to add moisture to the air in your home. This can make it easier for youto breathe. ?When using a cool mist humidifier, clean it daily. Empty water and replace with clean water. Cover your mouth and nose when you cough or sneeze. Wash your hands with soap and water often and for at least 20 seconds. This is also important afteryou cough or sneeze. If you cannot use soap and water, use alcohol-based hand impregnation operator. Keep all follow-up visits. How is this prevented? Get a flu shot every year. You may get the flu shot in late summer, fall, or winter. Ask your doctor when you should get your flu shot. Avoid contact with people who are sick during fall and winter. This is cold and flu season. Contact a doctor if: You get new symptoms. You have: ?Chest pain. ?Watery poop (diarrhea). ?A fever. Your cough gets worse. You start to have more mucus. You feel sick to your stomach. You throw up. Get help right away if you: Have shortness of breath. Have trouble breathing. Have skin or nails that turn a bluish color. Have very bad pain or stiffness in your neck. Get a sudden headache. Get sudden pain in your face or ear. Cannot eat or drink without throwing up. These symptoms may represent a serious problem that is an emergency. Get medical help right away. Call your local emergency services (911 in the [place] Do not wait to see if the symptoms will go away. Do not drive yourself to the hospital. Summary Influenza is also called the flu. It is an infection in the lungs, nose, and throat. It spreads easily from person to person. Take vccm-vvd-wlrkqhg and prescription medicines only as told by your doctor. Getting a flu shot every year is the best way to not get the flu. This information is not intended to replace advice given to you by your health care provider. Make sure you discuss any questions you have with your health care provider. Document Revised: 02/01/2021 Document Reviewed: 02/03/2021 [employer] Patient Education 2023 [email or web address]. Follow Up Care 08/09/2024 11:39:41 With:Santino Moran MD Address: [address] [place] [address] [place] [address]- When: Unknown [facility] 02-09-2025 NotePatient Education Infectious Disease Oral Thrush, Adult Oral thrush is an infection in your mouth and throat and on your tongue. It causes white patches toform in your mouth and on your tongue. Many cases of thrush are mild. But, sometimes, thrush can be serious. People who have a weak body defense system (immune system) or other diseases can be affected more. What are the causes? This condition is caused by a type of fungus called yeast. The fungus is normally present in small amounts in the mouth and nose. If a person has a long- term illness or a weak body defense system, the fungus can grow and spread quickly. This causes thrush. What increases the risk? You are more likely to develop this condition if: ??? You have a weak body defense system. ??? You are an older adult. ??? You have diabetes, cancer, or HIV. ??? You have a dry mouth. ??? You are or . ??? You do not take good care of your teeth. This risk is greater for people who have false teeth (dentures). ??? You use antibiotic or steroid medicines. What are the signs or symptoms? Symptoms of this condition include: ??? A burning feeling in the mouth and throat. ??? White patches that stick to the mouth and tongue. ??? A bad taste in the mouth or trouble tasting foods. ??? A feeling like you have cotton in your mouth. ??? Pain when you eat and swallow. ??? Not wanting to eat as much as usual. ??? Cracking at the corners of the mouth. How is this treated? This condition is treated with medicines called antifungals. These medicines prevent a fungus from growing. The medicines are either put right on the area (topical) or swallowed (oral). Your doctor will also treat other problems that you may have, such as diabetes or HIV. Follow these instructions at home: Helping with pain and soreness To lessen your pain: ??? Drink cold liquids, like water and iced tea. ??? Eat frozen ice pops or frozen juices. ??? Eat foods that are easy to swallow, like gelatin and ice cream. ??? Drink from a straw if you have too much pain in your mouth. General instructions ??? Take or use tsku-yhk-yjznjdp and prescription medicines only as told by your doctor. ??? Eat plain yogurt that has live cultures in it. Read the label to make sure that there are live cultures in your yogurt. ??? If you wear false teeth: ? Take them out before you go to bed. ? [place] them well. ? Soak them in a glass cleaner. ??? Rinse your mouth with warm salt-water many times a day. To make the salt- water mixture, dissolve ??1 teaspoon (3?6 g) of salt in 1 cup (237 mL) of warm water. Contact a doctor if: ??? Your problems do not get better within 7 days of treatment. ??? Your infection is spreading. This may show as white areas on the skin outside of your mouth. ??? You are nursing your baby and you have redness and pain in the nipples. Summary ??? Oral thrush is an infection in your mouth and throat. It is caused by a fungus. ??? You are more likely to get this condition if you have a weak body defense system. Diseases likediabetes, cancer, or HIV also add to your risk. ??? This condition is treated with medicines called antifungals. ??? Contact a doctor if you do not get better within 7 days of starting treatment. This information is not intended to replace advice given to you by your health care provider. Make sure you discuss any questions you have with your health care provider. Document Revised: 06/03/2023 Document Reviewed: 06/03/2023 [employer] Patient Education ? 2023 [email or web address]. Influenza, Adult Influenza is also called the flu. It is an infection in the lungs, nose, and throat (respiratory tract). It spreads easily from person to person (is contagious). The flu causes symptoms that are like a cold, along with high fever and body aches. What are the causes? This condition is caused by the influenza virus. You can get the virus by: ??? Breathing in droplets that are in the air after a person infected with the flu coughed or sneezed. ??? Touching something that has the virus on it and then touching your mouth, nose, or eyes. What increases the risk? Certain things may make you more likely to get the flu. These include: ??? Not washing your hands often. ??? Having close contact with many people during cold and flu season. ??? Touching your mouth, eyes, or nose without first washing your hands. ??? Not getting a flu shot every year. You may have a higher risk for the flu, and serious problems, such as a lung infection (pneumonia),if you: ??? Are older than 65. ??? Are . ??? Have a weakened disease-fighting system (immune system) because of a disease or because you aretaking certain medicines. ??? Have a long-term (chronic) condition, such as: ? Heart, kidney, or lung disease. ? Diabetes. ? Asthma. ??? Have a liver disorder. ??? Are very overweigh (more content not included)...[facility] 08-05-2024 Telephone encounter Note* Telephone Encounter - Jayde Chirinos - 08/05/2024 11:12 AM EST Called patient MAMIE and Alex in regards to completing labs [facility]02-05-2025 Miscellaneous Notes* Telephone Encounter - Jayde Chirinos - 08/05/2024 11:12 AM EST Called patient MAMIE and Alex in regards to completing labs * Telephone Encounter - Stevo Neff MD - 08/04/2024 11:59 AM EST Please call and schedule nonfasting labs this month. Temporary medication refilled Thank you. Patient's request for medication is as follows: Requested Prescriptions Pending Prescriptions Disp Refills RINVOQ 15 mg tablet [Pharmacy Med Name: RINVOQ ER 15MG] 30 tablet 1 Sig: TAKE 1 TABLET BY MOUTH 1 TIME A DAY. Prescription(s) as above. Please process accordingly. Stevo Neff MD * Telephone Encounter - Moniak Zavala MA - 08/04/2024 8:49 AM EST Images from the original note were not included. Pharmacy electronically requests the following refill(s) Requested Prescriptions Pending Prescriptions Disp Refills RINVOQ 15 mg tablet [Pharmacy Med Name: RINVOQ ER 15MG] 30 tablet 11 Sig: TAKE 1 TABLET BY MOUTH 1 TIME A DAY. Monika Zavala MA Most recent Rheumatology visit: 10/01/2023 (with Stevo Neff) Last Bone Density on file: None on file Rheumatology Care Team: None on file Recent Office Visits - This Specialty 10/01/2023 Rheumatoid arthritis of multiple sites without rheumatoid factor (HCC) Rheumatology Stevo Neff MD 05/07/2022 Rheumatoid arthritis of multiple sites without rheumatoid factor (HCC) Rheumatology Stevo Neff MD 10/10/2005 IMMUNOLOGICAL FIND OTHR OR UNSPEC Rheumatology Laura Harper MD Upcoming Rheumatology Appointments - Next 365 Days Visit Type Date Time Department [facility] MEDICAL 02/15/2025 7:40 AM [facility] CBC: Latest Ref Rng & Units 06/08/2024 [...] Rng & Units 06/08/2024 06/15/2024 CRP CRP 0.50 mg/dL 0.50 0.97 This result is from an external source. Uric Acid: None on file in the last 6 months Open Standing (Multiple Instance) Lab Orders None Open Future (Single Instance) Lab Orders None documented in [facility] Telephone encounter Note * Telephone Encounter - Stevo Neff MD - 08/04/2024 11:59 AM EST Please call and schedule nonfasting labs this month. Temporary medication refilled Thank you. Patient's request for medication is as follows: Requested Prescriptions Pending Prescriptions Disp Refills RINVOQ 15 mg tablet [Pharmacy Med Name: RINVOQ ER 15MG] 30 tablet 1 Sig: TAKE 1 TABLET BY MOUTH 1 TIME A DAY. Prescription(s) as above. Please process accordingly. Stevo Neff MD [facility]02-04-2025 Telephone encounter Note* Telephone Encounter - Moniak Zavala MA - 08/04/2024 8:49 AM EST Images from the original note were not included. Pharmacy electronically requests the following refill(s) Requested Prescriptions Pending Prescriptions Disp Refills RINVOQ 15 mg tablet [Pharmacy Med Name: RINVOQ ER 15MG] 30 tablet 11 Sig: TAKE 1 TABLET BY MOUTH 1 TIME A DAY. Monika Zavala MA Most recent Rheumatology visit: 10/01/2023 (with Stevo Neff) Last Bone Density on file: None on file Rheumatology Care Team: None on file Recent Office Visits - This Specialty 10/01/2023 Rheumatoid arthritis of multiple sites without rheumatoid factor (HCC) Rheumatology Stevo Neff MD 05/07/2022 Rheumatoid arthritis of multiple sites without rheumatoid factor (HCC) Rheumatology Stevo Neff MD 10/10/2005 IMMUNOLOGICAL FIND OTHR OR UNSPEC Rheumatology Laura Harper MD Upcoming Rheumatology Appointments - Next 365 Days Visit Type Date Time Department [facility] 02/15/2025 7:40 AM [facility] CBC: Latest Ref Rng & Units 06/08/2024 [...] Rng & Units 06/08/2024 06/15/2024 CRP CRP 0.50 mg/dL 0.50 0.97 This result is from an external source. Uric Acid: None on file in the last 6 months Open Standing (Multiple Instance) Lab Orders None Open Future (Single Instance) Lab Orders None [facility]01-20-2025 NoteHNO ID: [id number] Author: ERIK ALEJANDRO MD Service: ? Author Type: Physician Type: Progress Notes Filed: 07/21/2024 14:19 Note Text: Radiation Oncology - New Patient/Consult Note PATIENT NAME: Carolina Gutierrez PATIENT REQUESTING PHYSICIAN: Dr. 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 PATIENT IDENTIFICATION: This patient was seen in the Department of Radiation Oncology at the [facility] with Erik Alejandro MD. Final recommendations will be communicated back to the requesting physician by way of the shared medical record, or letter to requesting physician via [place] mail. HISTORY OF PRESENT ILLNESS: Ms. Gutierrez is a 63-year-old woman from [place], [place] who had biopsy of a skin lesion of the right lower leg anterior on 12/19/20[address] operator [address] Watson which returned as invasive squamous cell carcinoma. She was offered local excision however the patient preferred to avoid surgery given her history of postop wound infections including open wounds in the lower extremities. She is referred today to the radiation medicine clinic to have a discussion regarding the role of radiation therapy in the definitive and nonoperative management of her skin cancer. 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 PAST SURGICAL HISTORY OF hysterectomy PAST SURGICAL HISTORY OF Right 1989 tibialis anterior tendon PAST SURGICAL HISTORY OF 2014 straightening pronated feet PAST SURGICAL HISTORY OF Right 2021 total knee right PAST SURGICAL HISTORY OF Left 05/2023 total reverse shoulder REMOVAL GALLBLADDER REMV CATARACT EXTRACAP,INSERT LENS Bilateral S ANTERIOR TIBIALIS TENDON TONSILLECTOMY AND ADENOIDECTOMY FAMILY HISTORY: FAMILY HISTORY Problem Relation Age of Onset Cancer Mother Cerebral Embolism Father CVA, aneurysm, [place], other (normal [Other]) Sister None Sister None Sister Breast Cancer No Family History no known family h/o breast or ovarian cancer Anesthesia Problems No Family History SOCIAL HISTORY: Ms. Gutierrez is , has 3 children, and lives in the [place], [place] area. She currently works part-time at the [employer] and denies any tobacco use and consumes alcohol occasionally. RADIATION HISTORY: The patient denies any history of therapeutic radiation. ALLERGIES: ALLERGIES Allergen Reactions Keflex [Cephalexin] Hives Penicillins Hives Eliquis [Apixaban] Hives Tree Nuts Anaphylaxis MEDICATIONS: Current Outpatient Medications: ondansetron (ZOFRAN) 4 mg tablet L.acidophilus-L.rhamnosus (PROBIOTIC) 15 billion cell capsule furosemide (LASIX) 20 mg tablet metoprolol succinate ER (TOPROL XL) 100 mg potassium chloride ER (KLOR-CON) 20 mEq tablet tiotropium bromide (SPIRIVA WITH HANDIHALER INHALATION) montelukast sodium (SINGULAIR ORAL) semaglutide (OZEMPIC) 2 mg/dose (8 mg/3 mL) pen injector ondansetron orally disintegrating (ZOFRAN ODT) 4 mg disintegrating tablet RINVOQ 15 mg tablet celecoxib (CELEBREX) 200 mg capsule levothyroxine (SYNTHROID) 75 mcg tablet EPIPEN 2-PANCHITO 0.3 mg/0.3 mL (1:1,000) atIn LANSOPRAZOLE 30 mg capsule fluticasone (FLONASE) 50 mcg/actuation nasal spray Cholecalciferol, Vitamin D3, 1,000 unit ORAL Tab CITRACAL 500 MG (2,376 MG) EFFERVESCENT TAB ADVAIR 250/50 DISKUS aspirin, enteric coated (ADULT LOW DOSE ASPIRIN) 81 mg EC tablet PHYSICAL EXAMINATION: GENERAL: middle-aged woman sitting in chair, in no acute distress. VITALS: BP 118/79 Pulse 77 Temp 98.1 Resp 18 Wt 183 lb 6.8 oz (83.2kg) SpO2 97% KPS: 90 HEENT: NC/AT, anicteric sclera HEART: S1S2 LUNGS: non-labored breathing ABDOMEN: soft MUSCULOSKELETAL: no peripheral edema, moves all extremities. NEURO: no focal deficit; AANDO X3. PATHOLOGIC DATA: 12/19/2023 IMPRESSION: Ms. Gutierrez is a 63-year-old woman recently diagnosed with a stage I invasive squamous cell carcinoma of the skin of the right anterior lower leg after biopsy on 12/19/[address] Watson. She was offered local excision however the patient preferred to avoid surgery given her history of postop wound infections including open wounds in the lower extremities. She is referred today to the radiation medicine clinic to have a discussion regarding the role of radiation therapy in the definitive and nonoperati (more content not included)...[facility]01-20-2025 History of Present illness Narrative* Erik Alejandro MD - 07/20/2024 11:47 PM EST Images from the original note were not included. Radiation Oncology - New Patient/Consult Note PATIENT NAME: Carolina Gutierrez PATIENT Signed: Erik Alejandro MD This document has been created with the use of voice recognition technology. It may contain inaccuracies, misspellings, inaccurate syntax or inappropriate word context that are a result of the inadequacies/shortcomings of said technology/software. * Amy Slade RN - 06/15/2024 2:47 PM EST Pacemaker/Defibrillator?N Previous Cancer(s)?skin cancer Previous Radiation?N Lupus/Scleroderma?N On body monitoring device?N documented in this encounterUniversity [facility] Telephone encounter Note * Telephone Encounter - Manju Perry - 07/08/2024 3:56 PM EST All appointments have been canceled Manju Perry PSS [facility]01-08-2025 Miscellaneous Notes* Telephone Encounter - Manju Perry - 07/08/2024 3:56 PM EST All appointments have been canceled Manju Perry PSS * Telephone Encounter - Kathy Vo RN - 07/08/2024 3:48 PM EST Pt called in to cancel simulation and all appts with us. She is working with DR Watson who is going to do surgery to remove the cancer. She states she will not need radiation and requested all visits be cancelled. Kathy Vo, KAILA documented in this encounterUniversity [facility]01-[facility]-2025 Telephone encounter Note * Telephone Encounter - Kathy Vo RN - 07/08/2024 3:48 PM EST Pt called in to cancel simulation and all appts with us. She is working with DR Watson who is going to do surgery to remove the cancer. She states she will not need radiation and requested all visits be cancelled. Kathy Vo RN [facility]12-30-2024 NoteHNO ID: [id number] Author: ROS CHRISTIANSON, DO Service: ? Author Type: Physician Type: Progress Notes Filed: 06/29/2024 18:35 Note Text: VIRTUAL VISIT PROGRESS NOTE This is a virtual visit using [employer] Video Visit. It required patient-provider interaction for the medical decision making as documented below. I have communicated my name and active licensure. The patient's identity and physical location were verified at the time of this visit. Either the patient or their legal communications representative has been informed of the risks and benefits of -- and alternatives to -- treatment through a remote evaluation and consents to proceed with the evaluation remotely. Carolina Gutierrez is a 63 year old female seen for follow up of PJI. Since last visit, she has been doing well. Tolerating IV Vancomycin. Limited movement in shoulder. No rash. No fevers or chills. No cough. No diarrhea. Feeling much better than prior to antibiotic start. 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 PAST SURGICAL HISTORY OF hysterectomy PAST SURGICAL HISTORY OF Right 1989 tibialis anterior tendon PAST SURGICAL HISTORY OF 2014 straightening pronated feet PAST SURGICAL HISTORY OF Right 2021 total knee right PAST SURGICAL HISTORY OF Left 05/2023 total reverse shoulder REMOVAL GALLBLADDER REMV CATARACT EXTRACAP,INSERT LENS Bilateral S ANTERIOR TIBIALIS TENDON TONSILLECTOMY AND ADENOIDECTOMY FAMILY HISTORY Problem Relation Age of Onset Cancer Mother Cerebral Embolism Father CVA, aneurysm, [place], other (normal [Other]) Sister None Sister None Sister Breast Cancer No Family History no known family h/o breast or ovarian cancer Anesthesia Problems No Family History Social History Tobacco Use Smoking status: Never Smokeless tobacco: Never Vaping Use Vaping status: Never Used Substance Use Topics Alcohol use: Yes Comment: week-ends Drug use: No Current Outpatient Medications Medication Sig aspirin, enteric coated (ADULT LOW DOSE ASPIRIN) 81 mg EC tablet Take 1 tablet by mouth two times a day for 14 days. (Patient not taking: Reported on 06/15/2024) ondansetron (ZOFRAN) 4 mg tablet Take 1 tablet by mouth every 8 hours as needed for nausea/vomiting. L.acidophilus-L.rhamnosus (PROBIOTIC) 15 billion cell capsule Take 1 capsule by mouth once daily. Align furosemide (LASIX) 20 mg tablet Take 20 mg by mouth once daily. metoprolol succinate ER (TOPROL XL) 100 mg Take 50 mg by mouth once daily. potassium chloride ER (KLOR-CON) 20 mEq tablet Take 20 mEq by mouth two times a day. tiotropium bromide (SPIRIVA WITH HANDIHALER INHALATION) Inhale 1 Puff as instructed once daily. montelukast sodium (SINGULAIR ORAL) Take 10 mg by mouth two times a day. semaglutide (OZEMPIC) 2 mg/dose (8 mg/3 mL) pen injector Inject 2 mg subcutaneously one time a week. ondansetron orally disintegrating (ZOFRAN ODT) 4 mg disintegrating tablet Take 1 tablet by mouth every 8 hours as needed. RINVOQ 15 mg tablet TAKE 1 TABLET BY MOUTH 1 TIME A DAY. celecoxib (CELEBREX) 200 mg capsule TAKE 1 CAPSULE BY MOUTH TWICE A DAY levothyroxine (SYNTHROID) 75 mcg tablet TAKE 1.5 TABLETS ON SATURDAY, SATURDAY, SATURDAY, SATURDAY AND 2 TABLETS THE OTHER 3 DAYS (Patient taking differently: Take 137 mcg by mouth once daily.) EPIPEN 2-PANCHITO 0.3 mg/0.3 mL (1:1,000) atIn LANSOPRAZOLE 30 mg capsule Take 1 capsule by mouth daily at bedtime. fluticasone (FLONASE) 50 mcg/actuation nasal spray 1 [place] daily at bedtime. in each nostril. Cholecalciferol, Vitamin D3, 1,000 unit ORAL Tab Take 1 tablet by mouth once daily. CITRACAL 500 MG (2,376 MG) EFFERVESCENT TAB Take one(1) tablet two(2) times daily. ADVAIR 250/50 DISKUS Inhale 1 Puff as instructed two times a day. Advair diskus 500/50 No current facility-administered medications for this visit. ALLERGIES Allergen Reactions Keflex [Cephalexin] Hives Penicillins Hives Eliquis [Apixaban] Hives Tree Nuts Anaphylaxis REVIEW OF SYSTEMS: GENERAL: feeling well without fatigue, no recent change in weight RESPIRATORY: no cough CARDIOVASCULAR: no chest pain GI: normal appetite and tolerating PO well MUSCULOSKELETAL: Decreased range of motion of the shoulder SKIN: no rash PHYSICAL EXAMINATION: VIDEO EXAM: (if completed, performed via video enabled technology) GENERAL: alert and appropriate, in no distress and well-hydrated, well n (more content not included)...[facility]12-30-2024 History of Present illness Narrative* Ros Christianson, - 06/29/2024 6:29 PM EST VIRTUAL VISIT PROGRESS NOTE This is a virtual visit using [employer] Video Visit. It required patient- provider interaction for the medical decision making as documented below. I have communicated my name and active licensure. The patient's identity and physical location wereverified at the time of this visit. Either the patient or their legal communications representative has been informed of the risks and benefits of -- and alternatives to -- treatment through a remote evaluation andconsents to proceed with the evaluation remotely. Carolina Gutierrez is a 63 year old female seen for follow up of PJI. Since last visit, she has been doing well. Tolerating IV Vancomycin. Limited movement in shoulder. No rash. No fevers or chills. No cough. No diarrhea. Feeling much better than prior to antibiotic start. 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 PAST SURGICAL HISTORY OF hysterectomy PAST SURGICAL HISTORY OF Right 1989 tibialis anterior tendon PAST SURGICAL HISTORY OF 2014 straightening pronated feet PAST SURGICAL HISTORY OF Right 2021 total knee right PAST SURGICAL HISTORY OF Left 05/2023 total reverse shoulder REMOVAL GALLBLADDER REMV CATARACT EXTRACAP,INSERT LENS Bilateral S ANTERIOR TIBIALIS TENDON TONSILLECTOMY & ADENOIDECTOMY <AGE 11 FAMILY HISTORY Problem Relation Age of Onset Cancer Mother Cerebral Embolism Father CVA, aneurysm, [place], other (normal [Other]) Sister None Sister None Sister Breast Cancer No Family History no known family h/o breast or ovarian cancer Anesthesia Problems No Family History Social History Tobacco Use Smoking status: Never Smokeless tobacco: Never Vaping Use Vaping status: Never Used Substance Use Topics Alcohol use: Yes Comment: week-ends Drug use: No Current Outpatient Medications Medication Sig aspirin, enteric coated (ADULT LOW DOSE ASPIRIN) 81 mg EC tablet Take 1 tablet by mouth two times aday for 14 days. (Patient not taking: Reported on 06/15/2024) ondansetron (ZOFRAN) 4 mg tablet Take 1 tablet by mouth every 8 hours as needed for nausea/vomiting. L.acidophilus-L.rhamnosus (PROBIOTIC) 15 billion cell capsule Take 1 capsule by mouth once daily. Align furosemide (LASIX) 20 mg tablet Take 20 mg by mouth once daily. metoprolol succinate ER (TOPROL XL) 100 mg Take 50 mg by mouth once daily. potassium chloride ER (KLOR-CON) 20 mEq tablet Take 20 mEq by mouth two times a day. tiotropium bromide (SPIRIVA WITH HANDIHALER INHALATION) Inhale 1 Puff as instructed once daily. montelukast sodium (SINGULAIR ORAL) Take 10 mg by mouth two times a day. semaglutide (OZEMPIC) 2 mg/dose (8 mg/3 mL) pen injector Inject 2 mg subcutaneously one time a week. ondansetron orally disintegrating (ZOFRAN ODT) 4 mg disintegrating tablet Take 1 tablet by mouth every 8 hours as needed. RINVOQ 15 mg tablet TAKE 1 TABLET BY MOUTH 1 TIME A DAY. celecoxib (CELEBREX) 200 mg capsule TAKE 1 CAPSULE BY MOUTH TWICE A DAY levothyroxine (SYNTHROID) 75 mcg tablet TAKE 1.5 TABLETS ON SATURDAY, SATURDAY, SATURDAY, SATURDAY AND2 TABLETS THE OTHER 3 DAYS (Patient taking differently: Take 137 mcg by mouth once daily.) EPIPEN 2-PANCHITO 0.3 mg/0.3 mL (1:1,000) atIn LANSOPRAZOLE 30 mg capsule Take 1 capsule by mouth daily at bedtime. fluticasone (FLONASE) 50 mcg/actuation nasal spray 1 [place] daily at bedtime. in each nostril. Cholecalciferol, Vitamin D3, 1,000 unit ORAL Tab Take 1 tablet by mouth once daily. CITRACAL 500 MG (2,376 MG) EFFERVESCENT TAB Take one(1) tablet two(2) times daily. ADVAIR 250/50 DISKUS Inhale 1 Puff as instructed two times a day. Advair diskus 500/50 No current facility-administered medications for this visit. ALLERGIES Allergen Reactions Keflex [Cephalexin] Hives Penicillins Hives Eliquis [Apixaban] Hives Tree Nuts Anaphylaxis REVIEW OF SYSTEMS: GENERAL: feeling well without fatigue, no recent change in weight RESPIRATORY: no cough CARDIOVASCULAR: no chest pain GI: normal appetite and tolerating PO well MUSCULOSKELETAL: Decreased range of motion of the shoulder SKIN: no rash PHYSICAL EXAMINATION: VIDEO EXAM: (if completed, performed via video enabled technology) GENERAL: alert and appropriate, in no distress and well-hydrated, well nourished SKIN: no rash noted HEAD: normocephalic, no abnormality or lesion noted EYES: no injection and visual acuity is grossly normal RESPIRATORY: breathing non-labored CHEST: equal chest rise with normal respiratory effort EXTREMITIES: Decreased range of motion at the shoulder NEUROLOGIC: no obvious deficit CRP normalized to 1 Micro: 10/13: shoulder aspiration with no growth on cultures 12/22: skin biopsy: MRSA CIPROFLOXACIN S <=0.5 CLINDAMYCIN R >=8 ERYTHROMYCIN R >=8 GENTAMICIN S <=0.5 LEVOFLOXACIN S <=0.12 OXACILLIN S <=0.25 1 TETRACYCLINE R >=16 TRIMETHOPRIM/SULFA S <=10 VANCOMYCIN S 1 01/28/2024: 2/2 blood cx with no growth x 7 days 04/14: bone and soft tissue cx: no growth on routine and anaerobic cx 05/11: skin biopsy from dermatology: MRSA CIPROFLOXACIN R >=8 CLINDAMYCIN R >=8 ERYTHROMYCIN R >=8 GENTAMICIN S <=0.5 LEVOFLOXACIN R >=8 OXACILLIN R NR 1 TETRACYCLINE R >=16 TRIMETHOPRIM/SULFA R >=320 VANCOMYCIN S 1 Verbal report from OSH Shoulder culture on 05/14 with MRSA - S - vancomycin, linezolid, rifampin - unclear entirely but think this was a swab of surface drainage from the wound ASSESSMENT: Impressions brought forward from prior, reviewed and edited as needed today. 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 L rTSA 05/20/2023 c/b hardware failure. Now s/p explant and spacer placement on 04/14/2024 with initial OR cx and aspiration with no growth on cultures. C/b with ongoing wound issues and drainage from the wound that has been cultured as MRSA. Initially started on IV Gentamicin per Dr. Moran, local FMd with rise in creatinine and decreased urine output. Transitioned to IV vancomycin on 05/22. CRP has now normalized and completed 6 weeks of therapy PLAN: - stop IV Vancomycin today - pull PICC line - there are no oral options for suppression unfortunately based on susceptibilities therefore will maintain off of antibiotics - Monitoring for relapse or emergence of infection after completing course of antibiotic therapy. - follow up with ID as needed Ros Christianson DO June 29, 2024 documented in this encounterUniversity [facility]12-30-2024 Miscellaneous Notes* Telephone Encounter - Kathy Silva - 06/29/2024 12:10 PM EST Notified [facility] at [phone], verbal orders given to Pam. Kathy Guerra I * Telephone Encounter - Anna Coffman RN - 06/29/2024 9:35 AM EST Teresa from [facility] called to inquire about drawing a Vanco level today since stop dateis today. If pt does not need vanco level the nurse would go see pt after last dose of vanco today and pull PICC line. After confirming with Dr. Christianson, Vanco does not need to be drawn and nurse may remove PICC line.I returned call to Teresa at [phone] and let her know the plan. documented in this encounterUniversity Hospitals [facility] Center12-30-2024 Telephone encounter Note * Telephone Encounter - Kathy Silva - 06/29/2024 12:10 PM EST Notified [facility] at [phone], verbal orders given to Pam. Kathy Rios Asst Shaunna [facility]12-30-2024 Telephone encounter Note* Telephone Encounter - Anna Coffman RN - 06/29/2024 9:35 AM EST Teresa from [facility] called to inquire about drawing a Vanco level today since stop dateis today. If pt does not need vanco level the nurse would go see pt after last dose of vanco today and pull PICC line. After confirming with Dr. Christianson, Vanco does not need to be drawn and nurse may remove PICC line.I returned call to Teresa at [phone] and let her know the plan. [facility]12-26-2024 Telephone encounter Note* Telephone Encounter - Manju Perry - 06/25/2024 4:01 PM EST Patient is scheduled on 07/13/24 at 8AM Manju Perry PSS [facility]12-26-2024 Miscellaneous Notes* Telephone Encounter - Manju Perry - 06/25/2024 4:01 PM EST Patient is scheduled on 07/13/24 at 8AM Manju Perry PSS * Telephone Encounter - Louisa Rubi RT(R) - 06/25/2024 1:55 PM EST Per CONRAD & [facility], okay to move sim to [facility]'s schedule to accommodate pt work schedule Scheduled sim on 07/13/24 at 8am. I spoke with patient & informed her of arrival time. PSS - please add sim to ct scanner schedule at 8am x 1 hr. Consent signed. Thanks! RT Gabo(R)(T) * Telephone Encounter - Louisa Rubi RT(R) - 06/25/2024 10:08 AM EST I called & spoke with Carolina regarding sim appt options. Pt is unable to come any time on 07/06. Will speak with CONRAD regarding moving pt to [facility]'s schedule for simulation a different day. RT Gabo(Kamryn)(T) * Telephone Encounter - Manju Perry - 06/22/2024 3:51 PM EST Carolina states that time doesn't work, she wants the latest we can give her because she doesn't wantto miss any work. I told her I would call back when I get word of a later time. She understood Manju Perry * Telephone Encounter - Holly Castelan Tech - 06/22/2024 1:42 PM EST PSS- please schedule sim on PET/CT machine on 07/06/2023 @ 12:00pm Rt Lower Leg with arrival time of 11:45am. No special instructions Holly Holder * Telephone Encounter - Amy Slade RN - 06/22/2024 10:43 AM EST PSS/RT Please schedule SIM 07/[address] Alejandro. Thanks Amy Slade RN * Telephone Encounter - Manju Perry - 06/15/2024 2:41 PM EST Nurse Ed added to todays schedule Manju Perry PSS * Telephone Encounter - Kathy Vo RN - 06/15/2024 2:07 PM EST Schedule SIM treating R Lower Leg (not urgent), Will need CT/SIM and also Clinical Set up Consent Signed Rad Ed today Kathy Vo RN documented in this encounterUniversity Hospitals [facility] Center12-26-2024 Telephone encounter Note * Telephone Encounter - Louisa Rubi RT(R) - 06/25/2024 1:55 PM EST Per [facility] & [facility], okay to move sim to [facility]'s schedule to accommodate pt work schedule Scheduled sim on 07/13/24 at 8am. I spoke with patient & informed her of arrival time. PSS - please add sim to ct scanner schedule at 8am x 1 hr. Consent signed. Thanks! Louisa Rubi RT(R)(T) [facility] Work Phone: [phone] Telephone encounter Note* Telephone Encounter - Louisa Rubi RT(R) - 06/25/2024 10:08 AM EST I called & spoke with Carolina regarding sim appt options. Pt is unable to come any time on 07/06. Will speak with CONRAD regarding moving pt to [facility]'s schedule for simulation a different day. RT Gabo(R)(T) [facility]12-24-[facility]24 History of Present illness Narrative* Luke Mireles RPh - 06/23/2024 3:20 PM EST [facility] OPAT Documentation Note OPAT Vancomycin Monitoring - OPAT Pharmacist Consult Weekly OPAT labs reviewed. The patient is currently receiving the following IV antimicrobials as part of their OPAT therapy: vancomycin 1.25 g IV q24h. Tentative OPAT stop date is 06/29. Labs were verbally given to me by kath Reese - Scr 0.83. No pharmacist recommendations at this time. Please see below for additional vancomycin recommendations. [facility] OPAT PHARMACIST VANCOMYCIN DOSING NOTE Patient Name: Carolina Gutierrez Date of Consult: 06/23/2024 Time of Consult: 3:20 PM Indication: Bone & joint Goal Range: 10-20 mcg/mL RECOMMENDATIONS/PLAN: Pharmacy consulted for vancomycin dosing for Carolina Gutierrez, a 63 year old female. 1. Patient is currently ordered vancomycin 1.25 g IV q24h. 2. The most recent vancomycin level was 13.2 mcg/mL drawn on 06/23 at 12:35PM. This is a true levelper Mary Ann. 3. The present dose of vancomycin is the recommended dosage for this patient at this time. Continuetherapy as prescribed. 4. The next vancomycin level will be collected next Saturday unless clinically indicated sooner. 5. Notified [facility] at [phone], verbal orders given to Mary Ann (pharmacist). We will follow patient renal function, vancomycin levels and doses with you during the course of therapy. Additional recommendations will appear in follow up notes. If you have any questions, please contact Luke Mireles RPh at [phone]. Age: [age] year old Allergies: ALLERGIES Allergen Reactions Keflex [Cephalexin] Hives Penicillins Hives Eliquis [Apixaban] Hives Tree Nuts Anaphylaxis Last 3 Encounter Wt Readings: Date: Wt: 06/15/2024 83.2 kg (183 lb 6.8 oz) 03/30/2024 85.6 kg (188 lb 11.2 oz) 12/20/2023 90.1 kg (198 lb 10.2 oz) Last 1 Encounter Ht Readings: Date: Ht: 03/30/2024 142.2 cm (4' 8 ) CrCl: 89 mL/min Labs BUN (mg/dL) Date Value 04/14/2024 9 03/30/2024 18 12/25/2023 12 Creatinine (MG/DL) Date Value 06/15/2024 0.92 06/08/2024 1.15 (A) 06/01/2024 0.95 WBC (K/uL) Date Value 06/15/2024 9.8 06/08/2024 10.1 06/01/2024 9.7 Vancomycin Levels: No results found for: VANCORA Lab Abnormalities Noted: none Total Time Spent on this Encounter (in minutes): < 5 Luke Mireles RPh documented in this encounterUniversity Hospitals Cleveland [facility] Center12-24-2024 NoteHNO ID: [id number] Author: LUKE MIRELES RPh Service: ? Author Type: Pharmacist Type: Progress Notes Filed: 06/23/2024 15:22 Note Text: [facility] OPAT Documentation Note OPAT Vancomycin Monitoring - OPAT Pharmacist Consult Weekly OPAT labs reviewed. The patient is currently receiving the following IV antimicrobials as part of their OPAT therapy: vancomycin 1.25 g IV q24h. Tentative OPAT stop date is 06/29. Labs were verbally given to me by kath Reese - Scr 0.83. No pharmacist recommendations at this time. Please see below for additional vancomycin recommendations. [facility] OPAT PHARMACIST VANCOMYCIN DOSING NOTE Patient Name: Carolina Gutierrez Date of Consult: 06/23/2024 Time of Consult: 3:20 PM Indication: Bone AND joint Goal Range: 10-20 mcg/mL RECOMMENDATIONS/PLAN: Pharmacy consulted for vancomycin dosing for Carolina Gutierrez, a 63 year old female. 1. Patient is currently ordered vancomycin 1.25 g IV q24h. 2. The most recent vancomycin level was 13.2 mcg/mL drawn on 06/23 at 12:35PM. This is a true level per Mary Ann. 3. The present dose of vancomycin is the recommended dosage for this patient at this time. Continue therapy as prescribed. 4. The next vancomycin level will be collected next Saturday unless clinically indicated sooner. 5. Notified [facility] at [phone], verbal orders given to Mary Ann (pharmacist). We will follow patient renal function, vancomycin levels and doses with you during the course of therapy. Additional recommendations will appear in follow up notes. If you have any questions, please contact Luke Mireles RPh at [phone]. Age: [age] year old Allergies: ALLERGIES Allergen Reactions Keflex [Cephalexin] Hives Penicillins Hives Eliquis [Apixaban] Hives Tree Nuts Anaphylaxis Last 3 Encounter Wt Readings: Date: Wt: 06/15/2024 83.2 kg (183 lb 6.8 oz) 03/30/2024 85.6 kg (188 lb 11.2 oz) 12/20/2023 90.1 kg (198 lb 10.2 oz) Last 1 Encounter Ht Readings: Date: Ht: 03/30/2024 142.2 cm (4' 8 ) CrCl: 89 mL/min Labs BUN (mg/dL) Date Value 04/14/2024 9 03/30/2024 18 12/25/2023 12 Creatinine (MG/DL) Date Value 06/15/2024 0.92 06/08/2024 1.15 (A) 06/01/2024 0.95 WBC (K/uL) Date Value 06/15/2024 9.8 06/08/2024 10.1 06/01/2024 9.7 Vancomycin Levels: No results found for: VANCORA Lab Abnormalities Noted: none Total Time Spent on this Encounter (in minutes): < 5 [facility] Telephone encounter Note * Telephone Encounter - OrlandoManju - 06/22/2024 3:51 PM EST Carolina states that time doesn't work, she wants the latest we can give her because she doesn't wantto miss any work. I told her I would call back when I get word of a later time. She understood Manju Perry [facility]12-23-2024 Telephone encounter Note* Telephone Encounter - Holly Castelan Tech - 06/22/2024 1:42 PM EST PSS- please schedule sim on PET/CT machine on 07/06/2023 @ 12:00pm Rt Lower Leg with arrival time of 11:45am. No special instructions ThanksHolly [facility] Work Phone: [phone] Telephone encounter Note* Telephone Encounter - Amy Slade RN - 06/22/2024 10:43 AM EST PSS/RT Please schedule SIM 07/[address] Alejandro. Thanks Amy Slade RN [facility]12-17-2024 History of Present illness Narrative* Luke Mireles, [facility] - 06/16/2024 10:01 AM EST [facility] OPAT Documentation Note OPAT Vancomycin Monitoring - OPAT Pharmacist Consult Weekly OPAT labs reviewed. The patient is currently receiving the following IV antimicrobials as part of their OPAT therapy: vancomycin 1.25 g IV q24h. Tentative OPAT stop date is 06/29. WBC 9.8, hgb10.1, plt 268, no diff available for review. Scr 0.92. CRP 0.97 . No pharmacist recommendations at this time. Please see below for additional vancomycin recommendations. [facility] OPAT PHARMACIST VANCOMYCIN DOSING NOTE Patient Name: Carolina Gutierrez Date of Consult: 06/16/2024 Time of Consult: 10:01 AM Indication: Bone & joint Goal Range: 10-20 mcg/mL RECOMMENDATIONS/PLAN: Pharmacy consulted for vancomycin dosing for Carolina Gutierrez, a 63 year old female. 1. Patient is currently ordered vancomycin 1.25 g IV q12h. 2. The most recent vancomycin level was 15.9 mcg/mL drawn on 06/15 at 11AM. This is a true trough. 3. The present dose of vancomycin is the recommended dosage for this patient at this time. Continuetherapy as prescribed. 4. The next vancomycin level will be collected next Saturday unless clinically indicated sooner. We will follow patient renal function, vancomycin levels and doses with you during the course of therapy. Additional recommendations will appear in follow up notes. If you have any questions, please contact Luke Mireles RPh at [phone]. Age: [age] year old Allergies: ALLERGIES Allergen Reactions Keflex [Cephalexin] Hives Penicillins Hives Eliquis [Apixaban] Hives Tree Nuts Anaphylaxis Last 3 Encounter Wt Readings: Date: Wt: 06/15/2024 83.2 kg (183 lb 6.8 oz) 03/30/2024 85.6 kg (188 lb 11.2 oz) 12/20/2023 90.1 kg (198 lb 10.2 oz) Last 1 Encounter Ht Readings: Date: Ht: 03/30/2024 142.2 cm (4' 8 ) CrCl: 74 mL/min Labs BUN (mg/dL) Date Value 04/14/2024 9 03/30/2024 18 12/25/2023 12 Creatinine (MG/DL) Date Value 06/15/2024 0.92 06/08/2024 1.15 (A) 06/01/2024 0.95 WBC (K/uL) Date Value 06/15/2024 9.8 06/08/2024 10.1 06/01/2024 9.7 Vancomycin Levels: No results found for: VANCORA Lab Abnormalities Noted: none Total Time Spent on this Encounter (in minutes): < 5 Luke Mireles RPh documented in this encounterUniversity Hospitals [facility] Center12-17-2024 NoteHNO ID: [id number] Author: LUKE MIRELES RPh Service: ? Author Type: Pharmacist Type: Progress Notes Filed: 06/23/2024 14:40 Note Text: [facility] OPAT Documentation Note OPAT Vancomycin Monitoring - OPAT Pharmacist Consult Weekly OPAT labs reviewed. The patient is currently receiving the following IV antimicrobials as part of their OPAT therapy: vancomycin 1.25 g IV q24h. Tentative OPAT stop date is 06/29. WBC 9.8, hgb 10.1, plt 268, no diff available for review. Scr 0.92. CRP 0.97 . No pharmacist recommendations at this time. Please see below for additional vancomycin recommendations. [facility] OPAT PHARMACIST VANCOMYCIN DOSING NOTE Patient Name: Carolina Gutierrez Date of Consult: 06/16/2024 Time of Consult: 10:01 AM Indication: Bone AND joint Goal Range: 10-20 mcg/mL RECOMMENDATIONS/PLAN: Pharmacy consulted for vancomycin dosing for Craolina Gutierrez, a 63 year old female. 1. Patient is currently ordered vancomycin 1.25 g IV q24h. 2. The most recent vancomycin level was 15.9 mcg/mL drawn on 06/15 at 11AM. This is a true trough. 3. The present dose of vancomycin is the recommended dosage for this patient at this time. Continue therapy as prescribed. 4. The next vancomycin level will be collected next Saturday unless clinically indicated sooner. We will follow patient renal function, vancomycin levels and doses with you during the course of therapy. Additional recommendations will appear in follow up notes. If you have any questions, please contact Luke Mireles janee at [phone]. Age: [age] year old Allergies: ALLERGIES Allergen Reactions Keflex [Cephalexin] Hives Penicillins Hives Eliquis [Apixaban] Hives Tree Nuts Anaphylaxis Last 3 Encounter Wt Readings: Date: Wt: 06/15/2024 83.2 kg (183 lb 6.8 oz) 03/30/2024 85.6 kg (188 lb 11.2 oz) 12/20/2023 90.1 kg (198 lb 10.2 oz) Last 1 Encounter Ht Readings: Date: Ht: 03/30/2024 142.2 cm (4' 8 ) CrCl: 74 mL/min Labs BUN (mg/dL) Date Value 04/14/2024 9 03/30/2024 18 12/25/2023 12 Creatinine (MG/DL) Date Value 06/15/2024 0.92 06/08/2024 1.15 (A) 06/01/2024 0.95 WBC (K/uL) Date Value 06/15/2024 9.8 06/08/2024 10.1 06/01/2024 9.7 Vancomycin Levels: No results found for: VANCORA Lab Abnormalities Noted: none Total Time Spent on this Encounter (in minutes): < 5 Luke Seymour Aline, [facility]12-16-2024 NoteHNO ID: [id number] Author: AMY SLADE RN Service: ? Author Type: Registered Nurse Type: Progress Notes Filed: 07/20/2024 23:48 Note Text: Pacemaker/Defibrillator?N Previous Cancer(s)?skin cancer Previous Radiation?N Lupus/Scleroderma?N On body monitoring device?[facility]12-16-2024 NoteHNO ID: [id number] Author: KATHY VO RN Service: ? Author Type: Registered Nurse Type: Progress Notes Filed: 06/15/2024 14:47 Note Text: Radiation Therapy - Patient Education Note PATIENT NAME: Carolina Gutierrez PATIENT June 15, 2024 [facility] FACILITY/LOCATION: [facility] READINESS TO LEARN Cognitive Ability: Alert and oriented Motivation to learn: Eager Family Support: Unable to assess - Family not present Instruction provide to: Patient Patient learns best by: Written Instruction - Hand-outs Factors effecting learning: None Physical limitations effecting learning: None LEARNING RESPONSE Diagnosis: Pt educated today for radiation therapy to skin. Education Topic/Teaching Points: Radiation therapy, Side effects, and OTV: Method of instruction: Written instruction/Handouts Patient /Family response: Patient verbalized understanding of radiation treatments, side effects, OTV, and transportation. Follow-up plan: Patient instructed to call with any further issues Supplemental material: Informational handouts on Skin changes. Referral (recommendation): None, Pt denied need for social work, van service, and sound technician. Patient has an Onbody or Implanted device: No Signed by: Kathy Vo RN[facility]12-[facility]24 History of Present illness Narrative* Kathy Vo RN - 06/15/2024 2:46 PM EST Radiation Therapy - Patient Education Note PATIENT NAME: Carolina Gutierrez PATIENT June 15, 2024 [facility] FACILITY/LOCATION: [facility] READINESS TO LEARN Cognitive Ability: Alert and oriented Motivation to learn: Eager Family Support: Unable to assess - Family not present Instruction provide to: Patient Patient learns best by: Written Instruction - Hand-outs Factors effecting learning: None Physical limitations effecting learning: None LEARNING RESPONSE Diagnosis: Pt educated today for radiation therapy to skin. Education Topic/Teaching Points: Radiation therapy, Side effects, and OTV: Method of instruction: Written instruction/Handouts Patient /Family response: Patient verbalized understanding of radiation treatments, side effects, OTV, and transportation. Follow-up plan: Patient instructed to call with any further issues Supplemental material: Informational handouts on Skin changes. Referral (recommendation): None, Pt denied need for social work, van service, and sound technician. Patient has an Onbody or Implanted device: No Signed by: Kathy Vo RN documented in this encounterUniversity [facility]als [facility] Center12-16-2024 Telephone encounter Note * Telephone Encounter - Manju Perry - 06/15/2024 2:41 PM EST Nurse Ed added to today schedule Manju Perry PSS [facility]12-16-2024 Telephone encounter Note* Telephone Encounter - Kathy Vo, KAILA - 06/15/2024 2:07 PM EST Schedule SIM treating R Lower Leg (not urgent), Will need CT/SIM and also Clinical Set up Consent Signed Rad Ed today Kathy Vo, KAILA [facility]12-16-2024 NoteEducation (RADTSA) CAROLINA GUTIERREZ ([id number]) 1960 F Date Time Provider Department 06/15/24 KATHY VO Reason for Visit: Patient Education [91] During your visit today, we recorded the following information about you: Allergies As of Date: 06/15/2024 Noted Allergy Reaction KEFLEX (CEPHALEXIN) 10/18/2004 4 - Hives PENICILLINS 01/05/2004 4 - Hives ELIQUIS (APIXABAN) 04/14/2024 4 - Hives TREE NUTS 04/14/2024 10 - Anaphylaxis Date Reviewed: 06/15/2024 Reviewed by: Amy Slade RN - Fully Assessed Prescriptions as of 06/15/2024 - aspirin, enteric coated (ADULT LOW DOSE ASPIRIN) 81 mg EC tablet Take 1 tablet by mouth two times a day for 14 days. - ondansetron (ZOFRAN) 4 mg tablet Take 1 tablet by mouth every 8 hours as needed for nausea/vomiting. - L.acidophilus-L.rhamnosus (PROBIOTIC) 15 billion cell capsule Take 1 capsule by mouth once daily. Align - furosemide (LASIX) 20 mg tablet Take 20 mg by mouth once daily. - metoprolol succinate ER (TOPROL XL) 100 mg Take 50 mg by mouth once daily. - potassium chloride ER (KLOR-CON) 20 mEq tablet Take 20 mEq by mouth two times a day. - tiotropium bromide (SPIRIVA WITH HANDIHALER INHALATION) Inhale 1 Puff as instructed once daily. - montelukast sodium (SINGULAIR ORAL) Take 10 mg by mouth two times a day. - semaglutide (OZEMPIC) 2 mg/dose (8 mg/3 mL) pen injector Inject 2 mg subcutaneously one time a week. - ondansetron orally disintegrating (ZOFRAN ODT) 4 mg disintegrating tablet Take 1 tablet by mouth every 8 hours as needed. - RINVOQ 15 mg tablet TAKE 1 TABLET BY MOUTH 1 TIME A DAY. - celecoxib (CELEBREX) 200 mg capsule TAKE 1 CAPSULE BY MOUTH TWICE A DAY - levothyroxine (SYNTHROID) 75 mcg tablet TAKE 1.5 TABLETS ON SATURDAY, SATURDAY, SATURDAY, SATURDAY AND 2 TABLETS THE OTHER 3 DAYS - EPIPEN 2-PANCHITO 0.3 mg/0.3 mL (1:1,000) atIn - LANSOPRAZOLE 30 mg capsule Take 1 capsule by mouth daily at bedtime. - fluticasone (FLONASE) 50 mcg/actuation nasal spray 1 [place] daily at bedtime. in each nostril. - Cholecalciferol, Vitamin D3, 1,000 unit ORAL Tab Take 1 tablet by mouth once daily. - CITRACAL 500 MG (2,376 MG) EFFERVESCENT TAB Take one(1) tablet two(2) times daily. - ADVAIR 250/50 DISKUS Inhale 1 Puff as instructed two times a day. Advair diskus 500/50 Encounter Status:Closed by KATHY VO on 06/15/24[facility] 06-09-2024 History of Present illness Narrative* Luke Mireles, [facility] - 06/09/2024 12:09 PM EST [facility] OPAT Documentation Note OPAT Vancomycin Monitoring - OPAT Pharmacist Consult Weekly OPAT labs reviewed. The patient is currently receiving the following IV antimicrobials as part of their OPAT therapy: vancomycin 1 g IV q24h. Tentative OPAT stop date is 06/29. WBC 10, hgb 10.3, plt 321, no diff available for review. CRP 0.5 mg/dl. No pharmacist recommendations at this time.Please see below for additional vancomycin recommendations. [facility] OPAT PHARMACIST VANCOMYCIN DOSING NOTE Patient Name: Carolina Gutierrez Date of Consult: 06/09/2024 Time of Consult: 12:10 PM Indication: Bone & joint Goal Range: 10-20 mcg/mL RECOMMENDATIONS/PLAN: Pharmacy consulted for vancomycin dosing for Carolina Gutierrez, a 63 year old female. 1. Patient is currently ordered vancomycin 1.25 g IV q12h. 2. The most recent vancomycin level was 15 mcg/mL drawn on 06/08 at 11:05AM. . 3. The present dose of vancomycin is the recommended dosage for this patient at this time. Continuetherapy as prescribed. 4. The next vancomycin level will be collected next Saturday unless clinically indicated sooner. No Scr this wk - Mary Ann will ensure its drawn next wk. 5. Notified [facility] at [phone], verbal orders given to Mary Ann (pharmacist). We will follow patient renal function, vancomycin levels and doses with you during the course of therapy. Additional recommendations will appear in follow up notes. If you have any questions, please contact Luke Mireles RPh at [phone]. Age: [age] year old Allergies: ALLERGIES Allergen Reactions Keflex [Cephalexin] Hives Penicillins Hives Eliquis [Apixaban] Hives Tree Nuts Anaphylaxis Last 3 Encounter Wt Readings: Date: Wt: 03/30/2024 85.6 kg (188 lb 11.2 oz) 12/20/2023 90.1 kg (198 lb 10.2 oz) 11/04/2023 87.5 kg (193 lb) Last 1 Encounter Ht Readings: Date: Ht: 03/30/2024 142.2 cm (4' 8 ) CrCl: 80 mL/min Labs BUN (mg/dL) Date Value 04/14/2024 9 03/30/2024 18 12/25/2023 12 Creatinine Date Value 06/01/2024 0.95 MG/DL 05/22/2024 0.92 mg/dL 05/20/2024 1.27 MG/DL (A) WBC (K/uL) Date Value 06/08/2024 10.1 06/01/2024 9.7 05/20/2024 11.0 Vancomycin Levels: No results found for: VANCORA Lab Abnormalities Noted: none Total Time Spent on this Encounter (in minutes): < 5 Luke Mireles RPh documented in this encounterUniversity Hospitals [facility] Center12-10-2024 NoteHNO ID: [id number] Author: LUKE MIRELES RPh Service: ? Author Type: Pharmacist Type: Progress Notes Filed: 06/16/2024 10:02 Note Text: [facility] OPAT Documentation Note OPAT Vancomycin Monitoring - OPAT Pharmacist Consult Weekly OPAT labs reviewed. The patient is currently receiving the following IV antimicrobials as part of their OPAT therapy: vancomycin 1.25 g IV q24h. Tentative OPAT stop date is 06/29. WBC 10, hgb 10.3, plt 321, no diff available for review. CRP 0.5 mg/dl. No pharmacist recommendations at this time. Please see below for additional vancomycin recommendations. [facility] OPAT PHARMACIST VANCOMYCIN DOSING NOTE Patient Name: Carolina Gutierrez Date of Consult: 06/09/2024 Time of Consult: 12:10 PM Indication: Bone AND joint Goal Range: 10-20 mcg/mL RECOMMENDATIONS/PLAN: Pharmacy consulted for vancomycin dosing for Carolina Gutierrez, a 63 year old female. 1. Patient is currently ordered vancomycin 1.25 g IV q12h. 2. The most recent vancomycin level was 15 mcg/mL drawn on 06/08 at 11:05AM. . 3. The present dose of vancomycin is the recommended dosage for this patient at this time. Continue therapy as prescribed. 4. The next vancomycin level will be collected next Saturday unless clinically indicated sooner. No Scr this wk - Mary Ann will ensure its drawn next wk. 5. Notified [facility] at [phone], verbal orders given to Mary Ann (pharmacist). We will follow patient renal function, vancomycin levels and doses with you during the course of therapy. Additional recommendations will appear in follow up notes. If you have any questions, please contact Luke Mireles [facility] at [phone]. Age: [age] year old Allergies: ALLERGIES Allergen Reactions Keflex [Cephalexin] Hives Penicillins Hives Eliquis [Apixaban] Hives Tree Nuts Anaphylaxis Last 3 Encounter Wt Readings: Date: Wt: 03/30/2024 85.6 kg (188 lb 11.2 oz) 12/20/2023 90.1 kg (198 lb 10.2 oz) 11/04/2023 87.5 kg (193 lb) Last 1 Encounter Ht Readings: Date: Ht: 03/30/2024 142.2 cm (4' 8 ) CrCl: 80 mL/min Labs BUN (mg/dL) Date Value 04/14/2024 9 03/30/2024 18 12/25/2023 12 Creatinine Date Value 06/01/2024 0.95 MG/DL 05/22/2024 0.92 mg/dL 05/20/2024 1.27 MG/DL (A) WBC (K/uL) Date Value 06/08/2024 10.1 06/01/2024 9.7 05/20/2024 11.0 Vancomycin Levels: No results found for: VANCORA Lab Abnormalities Noted: none Total Time Spent on this Encounter (in minutes): < 5 Luke Mireles, [facility]12-06-2024 NoteHNO ID: [id number] Author: JOHN HOLLY MD Service: ? Author Type: Physician Type: Progress Notes Filed: 06/05/2024 15:15 Note Text: [facility] [place] NOTE Department of Orthopaedics [place] Holly [place] [facility] Gutierrez CLINIC NO.: [id number] DATE: 06/05/2024 Surgery: Removal Of Prosthesis, Includes Debridement And Synovectomy When Performed; Humeral And Glenoid Components (eg, Total Shoulder) - Left and Manual Prep And Insertion Deep Drug Delivery Dev Intra-articular - Left Date: 04/14/2024 Interval Hx: Carolina Gutierrez is back for 4 weeks follow up after above mentioned procedure. she denies any new injury or trauma. she gives her pain 2 out of 10. She has seen Dr. Ros Christianson and was started on PICC line and vancomycin about 2 weeks ago. The plan is to treat her with total of 6 weeks of IV antibiotics. 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 Last time in the office, we removed multiple sutures from her incision and it seems that that helped healing of the incision and she has not had any drainage since then. She denies any fever chills or systemic sign of infection. PHYSICAL EXAMINATION: Incision appears well-healed. Passive range of motion of the shoulder is pain-free. Actively she is able to raise her arm to 40 degrees of forward elevation 30 degrees of external rotation and internal rotation to SI joint. Her strength is 4 out of 5 in all planes. She is weakly firing her deltoid and posterior head but I cannot appreciate contraction and middle anterior deltoid. Upper extremity has intact sensory and motor function and has good perfusion distally. RADIOGRAPHIC STUDIES: 3 view xray of the left shoulder shows a well-positioned spacer with no evidence of loosening. Spacer is in good place. 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 ASSESSMENT: Encounter Diagnosis ICD-10-CM 1. 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 This is a very complex situation because she is a rheumatoid patient and goes through multiple flares. She has history of infection in her skin in multiple locations of her body. She is currently on IV antibiotics and PICC line and have another 4 weeks of antibiotic left. We had a long conversation regarding her treatment options and the fact that she either have the choice of living with the spacer for the rest of her life versus a complex reconstruction with a custom implant which has the risk of failure, infection and dislocation. This is a big decision and she needs to think about that and discuss her options with her . In the meantime, I would like to establish function of her deltoid and we will order an EMG. I would like to see her back in 2 weeks with the results of the EMG so we can finalize the plan for her left shoulder. I'd like to see her in 6 weeks with repeat xrays. If any questions or concerns arise, she should not hesitate to call. John Holly M.D. M.M.Sc. Shoulder and Elbow Surgeon Orthopaedic Surgery Department [place], [place] [address] Tell: [phone] Appt:[phone]12-06-2024 History of Present illness Narrative* John Holly MD - 06/05/2024 2:21 PM EST [facility] [place] NOTE Department of Orthopaedics [place] Holly [place] [facility] Gutierrez CLINIC NO.: [id number] DATE: 06/05/2024 Surgery: Removal Of Prosthesis, Includes Debridement And Synovectomy When Performed; Humeral And Glenoid Components (eg, Total Shoulder) - Left and Manual Prep And Insertion Deep Drug Delivery Dev Intra-articular - Left Date: 04/14/2024 Interval Hx: Carolina Gutierrez is back for 4 weeks follow up after above mentioned procedure. she deniesany new injury or trauma. she gives her pain 2 out of 10. She has seen Dr. Ros Christianson and was started on PICC line and vancomycin about 2 weeks ago. The plan is to treat her with total of 6 weeksof IV antibiotics. 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 Last time in the office, we removed multiple sutures from her incision and it seems that that helped healing of the incision and she has not had any drainage since then. She denies any fever chills or systemic sign of infection. PHYSICAL EXAMINATION: Incision appears well-healed. Passive range of motion of the shoulder is pain-free. Actively she is able to raise her arm to 40 degrees of forward elevation 30 degrees of external rotation and internal rotation to SI joint. Her strength is 4 out of 5 in all planes. She is weakly firing her deltoid and posterior head but I cannot appreciate contraction and middle anterior deltoid. Upper extremity has intact sensory and motor function and has good perfusion distally. RADIOGRAPHIC STUDIES: 3 view xray of the left shoulder shows a well-positioned spacer with no evidence of loosening. Spacer is in good place. 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 ASSESSMENT: Encounter Diagnosis ICD-10-CM 1. 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 This is a very complex situation because she is a rheumatoid patient and goes through multiple flares. She has history of infection in her skin in multiple locations of her body. She is currently on IV antibiotics and PICC line and have another 4 weeks of antibiotic left. We had a long conversation regarding her treatment options and the fact that she either have the choice of living with the spacer for the rest of her life versus a complex reconstruction with a custom implant which has the risk of failure, infection and dislocation. This is a big decision and she needs to think about that and discuss her options with her . In the meantime, I would like to establish function of her deltoid and we will order an EMG. I would like to see her back in 2 weeks with the results of the EMG so we can finalize the plan for her left shoulder. I'd like to see her in 6 weeks with repeat xrays. If any questions or concerns arise, she should not hesitate to call. John Holly M.D. M.M.Sc. Shoulder and Elbow Surgeon Orthopaedic Surgery Department [place], [place] [address] Tell: [phone] Appt:[phone] documented in this encounterUniversity Hospitals Cleveland Medical Center12-06-2024 History of Present illness Narrative* Elvi Shah RT(R) - 06/05/2024 1:40 PM EST Radiology Service Progress Note PATIENT NAME: Carolina Gutierrez DATE OF SERVICE: June 05, 2024 TIME: 1:53 PM PATIENT IDENTITY VERIFICATION COMPLETED USING TWO (2) IDENTIFIERS: Name and Date of confirmedby patient verbally. FALL SCREENING: Has the patient had 2 falls in the last year or 1 fall with injury or currently using an Ambulatory Assistive Device (Walker, Cane, Wheelchair, Crutches, etc.)? No PATIENT GENDER DATA: Female. status: : No status: NO. PATIENT RELEVANT IMPLANT DATA REVIEWED: Not Applicable PATIENT PRESENTS WITH AN IMPLANTABLE OR ATTACHED HABITAT CONSERVATION PLANNER: No RADIOLOGY DEPARTMENT: General X-ray: Exam(s) Completed: Upper Extremity X- Ray(s): Shoulder, AP / TRUE AP / AXILLARY left PERIPHERAL IV DATA: Not applicable SIGNED BY: RT Roxanne(Kamryn) June 05, 2024 1:53 PM documented in this encounterUniversity Hospitals Cleveland Medical Center12-06-2024 NoteHNO ID: [id number] Author: ELVI SHAH RT(Kamryn) Service: ? Author Type: Operations Systems Specialist Type: Progress Notes Filed: 06/05/2024 13:58 Note Text: Radiology Service Progress Note PATIENT NAME: Carolina Gutierrez DATE OF SERVICE: June 05, 2024 TIME: 1:53 PM PATIENT IDENTITY VERIFICATION COMPLETED USING TWO (2) IDENTIFIERS: Name and Date of confirmed by patient verbally. FALL SCREENING: Has the patient had 2 falls in the last year or 1 fall with injury or currently using an Ambulatory Assistive Device (Walker, Cane, Wheelchair, Crutches, etc.)? No PATIENT GENDER DATA: Female. status: : No status: NO. PATIENT RELEVANT IMPLANT DATA REVIEWED: Not Applicable PATIENT PRESENTS WITH AN IMPLANTABLE OR ATTACHED HABITAT CONSERVATION PLANNER: No RADIOLOGY DEPARTMENT: General X-ray: Exam(s) Completed: Upper Extremity X-Ray(s): Shoulder, AP / TRUE AP / AXILLARY left PERIPHERAL IV DATA: Not applicable SIGNED BY: RT Roxanne(R) June 05, 2024 1:53 [facility]12-04-2024 History of Present illness Narrative* Kristi Vanegas RT(R) - 06/03/2024 6:30 PM EST Radiology Service Progress Note PATIENT NAME: Carolina Gutierrez DATE OF SERVICE: June 03, 2024 TIME: 6:40 PM PATIENT IDENTITY VERIFICATION COMPLETED USING TWO (2) IDENTIFIERS: Name and Date of confirmedby patient verbally and Name and Date of confirmed by identification band. FALL SCREENING: Has the patient had 2 falls in the last year or 1 fall with injury or currently using an Ambulatory Assistive Device (Walker, Cane, Wheelchair, Crutches, etc.)? No PATIENT GENDER DATA: Female. status: : No status: NO. PATIENT RELEVANT IMPLANT DATA REVIEWED: Not Applicable PATIENT PRESENTS WITH AN IMPLANTABLE OR ATTACHED HABITAT CONSERVATION PLANNER: No RADIOLOGY DEPARTMENT: CT; Exam(s) Completed: Upper extremity PERIPHERAL IV DATA: Not applicable SIGNED BY: RT Noel(R) June 03, 2024 6:40 PM documented in this encounterUniversity Hospitals Cleveland Medical Center12-03-2024 History of Present illness Narrative* Luke Mireles, [facility] - 06/02/2024 10:22 AM EST [facility] OPAT Documentation Note OPAT Vancomycin Monitoring - OPAT Pharmacist Consult Weekly OPAT labs reviewed. The patient is currently receiving the following IV antimicrobials as part of their OPAT therapy: vancomycin 1 g IV q24h. Tentative OPAT stop date is 06/29. WBC 9.7, hgb 10.3, plt 385, eos 1.8%, no diff available for review. Scr 0.95. CRP <0.5mg/dl. No pharmacist recommendations at this time. Please see below for additional vancomycin recommendations. [facility] OPAT PHARMACIST VANCOMYCIN DOSING NOTE Patient Name: Carolina Gutierrez Date of Consult: 06/02/2024 Time of Consult: 10:22 AM Indication: Bone & joint Goal Range: 10-20 mcg/mL RECOMMENDATIONS/PLAN: Pharmacy consulted for vancomycin dosing for Carolina Gutierrez, a 63 year old female. 1. Patient is currently ordered vancomycin 1 g IV q24h. 2. The most recent vancomycin level was 9.6 mcg/mL drawn on 06/01 at 11:04AM. This is a true trough as pt doses around noon. 3. Will increase vancomycin to 1.25 g with a dosing interval of q24h. 4. The next vancomycin level will be collected next Saturday unless clinically indicated sooner. 5. Notified [facility] at [phone], verbal orders given to Mary Ann (pharmacist). We will follow patient renal function, vancomycin levels and doses with you during the course of therapy. Additional recommendations will appear in follow up notes. If you have any questions, please contact Luke Mireles [facility] at [phone]. Age: [age] year old Allergies: ALLERGIES Allergen Reactions Keflex [Cephalexin] Hives Penicillins Hives Eliquis [Apixaban] Hives Tree Nuts Anaphylaxis Last 3 Encounter Wt Readings: Date: Wt: 03/30/2024 85.6 kg (188 lb 11.2 oz) 12/20/2023 90.1 kg (198 lb 10.2 oz) 11/04/2023 87.5 kg (193 lb) Last 1 Encounter Ht Readings: Date: Ht: 03/30/2024 142.2 cm (4' 8 ) CrCl: 80 mL/min Labs BUN (mg/dL) Date Value 04/14/2024 9 03/30/2024 18 12/25/2023 12 Creatinine Date Value 06/01/2024 0.95 MG/DL 05/22/2024 0.92 mg/dL 05/20/2024 1.27 MG/DL (A) WBC Date Value 06/01/2024 9.7 K/uL 05/20/2024 11.0 K/uL 04/14/2024 11.81 k/uL (H) Vancomycin Levels: No results found for: VANCORA Lab Abnormalities Noted: abnormal vancomycin level Total Time Spent on this Encounter (in minutes): 5-10 Luke Mireles RPh documented in this encounterUniversity Hospitals Cleveland Medical Center12-03-2024 NoteHNO ID: [id number] Author: LUKE MIRELES RPh Service: ? Author Type: Pharmacist Type: Progress Notes Filed: 06/02/2024 10:25 Note Text: [facility] OPAT Documentation Note OPAT Vancomycin Monitoring - OPAT Pharmacist Consult Weekly OPAT labs reviewed. The patient is currently receiving the following IV antimicrobials as part of their OPAT therapy: vancomycin 1 g IV q24h. Tentative OPAT stop date is 06/29. WBC 9.7, hgb 10.3, plt 385, eos 1.8%, no diff available for review. Scr 0.95. CRP <0.5mg/dl. No pharmacist recommendations at this time. Please see below for additional vancomycin recommendations. [facility] OPAT PHARMACIST VANCOMYCIN DOSING NOTE Patient Name: Carolina Gutierrez Date of Consult: 06/02/2024 Time of Consult: 10:22 AM Indication: Bone AND joint Goal Range: 10-20 mcg/mL RECOMMENDATIONS/PLAN: Pharmacy consulted for vancomycin dosing for Carolina Gutierrez, a 63 year old female. 1. Patient is currently ordered vancomycin 1 g IV q24h. 2. The most recent vancomycin level was 9.6 mcg/mL drawn on 06/01 at 11:04AM. This is a true trough as pt doses around noon. 3. Will increase vancomycin to 1.25 g with a dosing interval of q24h. 4. The next vancomycin level will be collected next Saturday unless clinically indicated sooner. 5. Notified [facility] at [phone], verbal orders given to Mary Ann (pharmacist). We will follow patient renal function, vancomycin levels and doses with you during the course of therapy. Additional recommendations will appear in follow up notes. If you have any questions, please contact Luke Mireles RPh at [phone]. Age: [age] year old Allergies: ALLERGIES Allergen Reactions Keflex [Cephalexin] Hives Penicillins Hives Eliquis [Apixaban] Hives Tree Nuts Anaphylaxis Last 3 Encounter Wt Readings: Date: Wt: 03/30/2024 85.6 kg (188 lb 11.2 oz) 12/20/2023 90.1 kg (198 lb 10.2 oz) 11/04/2023 87.5 kg (193 lb) Last 1 Encounter Ht Readings: Date: Ht: 03/30/2024 142.2 cm (4' 8 ) CrCl: 80 mL/min Labs BUN (mg/dL) Date Value 04/14/2024 9 03/30/2024 18 12/25/2023 12 Creatinine Date Value 06/01/2024 0.95 MG/DL 05/22/2024 0.92 mg/dL 05/20/2024 1.27 MG/DL (A) WBC Date Value 06/01/2024 9.7 K/uL 05/20/2024 11.0 K/uL 04/14/2024 11.81 k/uL (H) Vancomycin Levels: No results found for: VANCORA Lab Abnormalities Noted: abnormal vancomycin level Total Time Spent on this Encounter (in minutes): 5-10 Luke Mireles [facility]11-27-2024 History of Present illness Narrative* Luke Mireles, [facility] - 05/27/2024 8:03 AM EST [facility] OPAT Documentation Note OPAT Vancomycin Monitoring - OPAT Pharmacist Consult Weekly OPAT labs reviewed. The patient is currently OFF all OPAT therapy at this time. She was laston gentamicin on 05/20. 05/24 labs reviewed - WBC 8.2, hgb 10.5, plt 351, diff stable. Scr 0.94. Gentamicin <0.3 mcg/ml. At this time, OK to start vancomycin therapy as Scr trending down. Tentative OPAT stop date is 06/29. Please see below for additional vancomycin recommendations. [facility] OPAT PHARMACIST VANCOMYCIN DOSING NOTE Patient Name: Carolina Gutierrez Date of Consult: 05/27/2024 Time of Consult: 8:03 AM Indication: Bone & joint Goal Range: 10-20 mcg/mL RECOMMENDATIONS/PLAN: Pharmacy consulted for vancomycin dosing for Carolina Gutierrez, a 63 year old female. 1. Patient is currently ordered vancomycin 1 g IV q24h. 2. No vancomycin level has been drawn for this dosing regimen. 3. The present dose of vancomycin is the recommended dosage for this patient at this time. Continuetherapy as prescribed. 4. The next vancomycin level will be collected next Saturday unless clinically indicated sooner. 5. Notified [facility] at [phone], verbal orders given to Mary Ann (pharmacist). Of note, Mary Ann misunderstood me regarding the OPAT last time and she sent out vancomycin on Saturday, for patient to start dose on Saturday. Asked her to ensure we get another level on Saturday and monitor closely. We will follow patient renal function, vancomycin levels and doses with you during the course of therapy. Additional recommendations will appear in follow up notes. If you have any questions, please contact Luke Mireles RPh at [phone]. Age: [age] year old Allergies: ALLERGIES Allergen Reactions Keflex [Cephalexin] Hives Penicillins Hives Eliquis [Apixaban] Hives Tree Nuts Anaphylaxis Last 3 Encounter Wt Readings: Date: Wt: 03/30/2024 85.6 kg (188 lb 11.2 oz) 12/20/2023 90.1 kg (198 lb 10.2 oz) 11/04/2023 87.5 kg (193 lb) Last 1 Encounter Ht Readings: Date: Ht: 03/30/2024 142.2 cm (4' 8 ) CrCl: 76 mL/min Labs BUN (mg/dL) Date Value 04/14/2024 9 03/30/2024 18 12/25/2023 12 Creatinine Date Value 05/22/2024 0.92 mg/dL 05/20/2024 1.27 MG/DL (A) 04/14/2024 0.52 mg/dL (L) WBC Date Value 05/20/2024 11.0 K/uL 04/14/2024 11.81 k/uL (H) 03/30/2024 11.32 k/uL (H) Vancomycin Levels: No results found for: VANCORA Lab Abnormalities Noted: none Total Time Spent on this Encounter (in minutes): 5-10 Luke Mireles RPh documented [facility]24 NoteHNO ID: [id number] Author: LUKE MIRELES RPh Service: ? Author Type: Pharmacist Type: Progress Notes Filed: 05/27/2024 09:46 Note Text: [facility] OPAT Documentation Note OPAT Vancomycin Monitoring - OPAT Pharmacist Consult Weekly OPAT labs reviewed. The patient is currently OFF all OPAT therapy at this time. She was last on gentamicin on 05/20. 05/24 labs reviewed - WBC 8.2, hgb 10.5, plt 351, diff stable. Scr 0.94. Gentamicin <0.3 mcg/ml. At this time, OK to start vancomycin therapy as Scr trending down. Tentative OPAT stop date is 06/29. Please see below for additional vancomycin recommendations. [facility] OPAT PHARMACIST VANCOMYCIN DOSING NOTE Patient Name: Carolina Gutierrez Date of Consult: 05/27/2024 Time of Consult: 8:03 AM Indication: Bone AND joint Goal Range: 10-20 mcg/mL RECOMMENDATIONS/PLAN: Pharmacy consulted for vancomycin dosing for Carolina Gutierrez, a 63 year old female. 1. Patient is currently ordered vancomycin 1 g IV q24h. 2. No vancomycin level has been drawn for this dosing regimen. 3. The present dose of vancomycin is the recommended dosage for this patient at this time. Continue therapy as prescribed. 4. The next vancomycin level will be collected next Saturday unless clinically indicated sooner. 5. Notified [facility] at [phone], verbal orders given to Mary Ann (pharmacist). Of note, Mary Ann misunderstood me regarding the OPAT last time and she sent out vancomycin on Saturday, for patient to start dose on Saturday. Asked her to ensure we get another level on Saturday and monitor closely. We will follow patient renal function, vancomycin levels and doses with you during the course of therapy. Additional recommendations will appear in follow up notes. If you have any questions, please contact Luke Mireles RPh at [phone]. Age: [age] year old Allergies: ALLERGIES Allergen Reactions Keflex [Cephalexin] Hives Penicillins Hives Eliquis [Apixaban] Hives Tree Nuts Anaphylaxis Last 3 Encounter Wt Readings: Date: Wt: 03/30/2024 85.6 kg (188 lb 11.2 oz) 12/20/2023 90.1 kg (198 lb 10.2 oz) 11/04/2023 87.5 kg (193 lb) Last 1 Encounter Ht Readings: Date: Ht: 03/30/2024 142.2 cm (4' 8 ) CrCl: 76 mL/min Labs BUN (mg/dL) Date Value 04/14/2024 9 03/30/2024 18 12/25/2023 12 Creatinine Date Value 05/22/2024 0.92 mg/dL 05/20/2024 1.27 MG/DL (A) 04/14/2024 0.52 mg/dL (L) WBC Date Value 05/20/2024 11.0 K/uL 04/14/2024 11.81 k/uL (H) 03/30/2024 11.32 k/uL (H) Vancomycin Levels: No results found for: VANCORA Lab Abnormalities Noted: none Total Time Spent on this Encounter (in minutes): 5-10 [facility] of Present illness Narrative* Luke Mireles RPh - 05/22/2024 2:31 PM EST [facility] OPAT Documentation Note All Other Encounters (for other adverse events, line issues, etc.) OPAT Complication: Other (Lab orders for Saturday/Saturday) Antimicrobials Implicated: Gentamicin and Vancomycin Afflicted Agency: [facility] Description/Actions Taken: Refer to Dr Kwong [facility] note from 05/21. Called [facility],[phone], and spoke with kath Reese. She took verbal orders to get repeat CBC/diff, Scr, and gentamicin level done on Saturday or Saturday pending nursing availability. Total Time Spent on this Encounter (in minutes): 5-10 Luke Mireles RPh 05/22/2024 2:31 PM * Luke Mireles RPh - 05/22/2024 2:31 PM EST [facility] OPAT Documentation Note OPAT Pharmacist Lab Review Weekly OPAT labs reviewed. The patient was started on IV gentamicin 300mg daily during hospital stay (05/14) and discharged on gentamicin OPAT on 05/15. No labs were available until yesterday. 05/20 at 6:04PM - WBC 11, hgb 11, plt 300, eosin 4.% elevated. No diff available for review. Scr 1.27 (elevated from baseline 0.5s). Gentamicin level at 9.2 mcg/ml (per Mary Ann, this was a ~6hr randomlevel). ESR 81, CRP 3.76. Pts last dose of gentamicin was on 05/21 at noon. Pt was told to HOLD all further doses. Refer to Dr Kwong [facility] note from 05/21. Called [facility] [phone], and spoke with kath Reese. She took verbal orders to get repeat CBC/diff, Scr, and gentamicin level doneon Saturday or Saturday pending nursing availability. Vancomycin OPAT on HOLD until labs are back this weekend. Lab Abnormalities Noted: acute kidney injury Total Time Spent on this Encounter (in minutes): 5-10 Luke Mireles RPh 05/22/2024 2:34 PM documented in this encounterUniversity [facility]11-22-2024 NoteHNO ID: [id number] Author: LUKE MIRELES RPh Service: ? Author Type: Pharmacist Type: Progress Notes Filed: 05/22/2024 14:42 Note Text: [facility] OPAT Documentation Note OPAT Pharmacist Lab Review Weekly OPAT labs reviewed. The patient was started on IV gentamicin 300mg daily during hospital stay (05/14) and discharged on gentamicin OPAT on 05/15. No labs were available until yesterday. 05/20 at 6:04PM - WBC 11, hgb 11, plt 300, eosin 4.% elevated. No diff available for review. Scr 1.27 (elevated from baseline 0.5s). Gentamicin level at 9.2 mcg/ml (per Mary Ann, this was a ~6hr random level). ESR 81, CRP 3.76. Pts last dose of gentamicin was on 05/21 at noon. Pt was told to HOLD all further doses. Refer to Dr Kwong [facility] note from 05/21. Called [facility], , and spoke with kath Reese. She took verbal orders to get repeat CBC/diff, Scr, and gentamicin level done on Saturday or Saturday pending nursing availability. Vancomycin OPAT on HOLD until labs are back this . Lab Abnormalities Noted: acute kidney injury Total Time Spent on this Encounter (in minutes): 5-10 Luke Mireles [facility] 05/22/2024 2:34 [facility]11-22-2024 NoteHNO ID: [id number] Author: LUKE MIRELES [facility] Service: ? Author Type: Pharmacist Type: Progress Notes Filed: 05/22/2024 14:42 Note Text: [facility] OPAT Documentation Note All Other Encounters (for other adverse events, line issues, etc.) OPAT Complication: Other (Lab orders for Saturday/Saturday) Antimicrobials Implicated: Gentamicin and Vancomycin Afflicted Agency: [facility] Description/Actions Taken: Refer to Dr Kwong [facility] note from 05/21. Called [facility], , and spoke with kath Reese. She took verbal orders to get repeat CBC/diff, Scr, and gentamicin level done on Saturday or Saturday pending nursing availability. Total Time Spent on this Encounter (in minutes): 5-10 Luke Mireles [facility] 05/22/2024 2:31 [facility]11-22-2024 NoteHNO ID: [id number] Author: ROS CHRISTIANSON DO Service: ? Author Type: Physician Type: Progress Notes Filed: 05/22/2024 14:00 Note Text: [facility] Outpatient Parenteral Antimicrobial Therapy (OPAT) Start Form Patient Info Patient MRN Patient Name Address Date of [id number] Carolina Manning [facility] [address] [facility] [address] [facility] [id number] 1960 Start Date 05/22/2024 Physician Group Cc_main Diagnosis Group Diagnosis Osteoarticular: Prosthetic joint infection Micro-organism STAPHYLOCOCCUS AUREUS IV Antibiotics Antibiotic Dose Frequency Stop Date Vancomycin 1 gram every 24 hours 06/29/2024 Lab Monitoring Plan Labs Frequency While on CBC/diff Creatinine Pre-dose Vancomycin CRP every Saturday every Saturday every Saturday every Saturday Vancomycin Vancomycin Vancomycin Vancomycin target trough level 10-20 mg/L OPAT Pharmacy Consult Yes Cath Care Protocol Flush IV line with 10 mL of normal saline (0.9%) before and after each dose of medication or at a minimum once daily. Flush IV line with 10-20 mL of normal saline (0.9%) after lab draw. Labs may be drawn on Saturday if Saturday is a holiday. Follow up Provider Follow up date/time Appointment type Ros Christianson DO 0:30 EST In-person Provider Monitoring Treatment Course Ros Christianson DO Address [address] [place] [address] Prescribing Provider's signature - electronically signed by Ros Christianson DO on 05/22/24 at 2:00 [facility]11-22-2024 History of Present illness Narrative* Ros Christianson DO - 05/22/2024 1:58 PM EST Images from the original note were not included. [facility] Outpatient Parenteral Antimicrobial Therapy (OPAT) Start Form Patient Info Patient MRN Patient Name Address Date of [id number] Carolina A [facility] [address] [facility] [address] [facility] [address] 1960 Start Date 05/22/2024 Physician Group Cc_main Diagnosis Group Diagnosis Osteoarticular: Prosthetic joint infection Micro-organism STAPHYLOCOCCUS AUREUS IV Antibiotics Antibiotic Dose Frequency Stop Date Vancomycin 1 gram every 24 hours 06/29/2024 Lab Monitoring Plan Labs Frequency While on CBC/diff Creatinine Pre-dose Vancomycin CRP every Saturday every Saturday every Saturday every Saturday Vancomycin Vancomycin Vancomycin Vancomycin target trough level 10-20 mg/L OPAT Pharmacy Consult Yes Cath Care Protocol Flush IV line with 10 mL of normal saline (0.9%) before and after each dose of medication or at a minimum once daily. Flush IV line with 10-20 mL of normal saline (0.9%) after lab draw. Labs may be drawn on Saturday if Saturday is a holiday. Follow up Provider Follow up date/time Appointment type Ros Christianson DO 0:30 EST In-person Provider Monitoring Treatment Course Ros Christianson DO Address [address] [place] [address] Prescribing Provider's signature - electronically signed by Rso Christianson DO on 05/22/24 at 2:00 PM documented in this encounterUniversity [facility]als [facility]11-21-2024 History of Present illness Narrative* Ros Christianson DO - 05/21/2024 3:30 PM EST VIRTUAL VISIT PROGRESS NOTE This is a virtual visit using [employer] Zoom Video Visit. It required patient- provider interaction for the medical decision making as documented below. I have communicated my name and active licensure. The patient's identity and physical location wereverified at the time of this visit. Either the patient or their legal communications representative has been informed of the risks and benefits of -- and alternatives to -- treatment through a remote evaluation andconsents to proceed with the evaluation remotely. Consultation requested by Dr. Holly for an opinion regarding shoulder infection. 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 Underwent reverse shoulder arthroplasty of the left shoulder on 05/20/2023 with underlying RA on rinvoq and no steroids. She had pain ever since the surgery. No fall or issues. Saw Dr. 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 CRP of 3.4, esr of 45. Aspiration with 1177 TNC, 77% neutrophils and no growth on cultures. Alpha defensin and synovasure were negative. No growth on cultures from send out and no crystals seen. However this work up was done on doxycycline that she was placed on for a possible URI. Diagnosed with SCC of the R breast and underwent excision on 10/20/2023 with infection following biopsy. Completed bactrim with improvement on 11/04/2023. She was planned for a 2 stage revision. She wasplanned for December however developed multiple medical problems. Had cyrotherapy for recurrent macule at SCC site on R breast. Again with surgical site infection. Given Levaquin for 1 week started on 12/18. Skin culture was done on 12/22 with staph, oxacillin susceptible and levaquin sensitive. Urgent care on 2023 with [facility] pneumonia given a zpack and a medrol dose pack. Hosptialized on 12/28 given antibiotic Hospitalized again 01/03 for Asthma exacerbation. Discharged on steroids Hospitalized again on 01/07 diagnosed with colitis. Discharged on metronidazole and levaquin At some point she was diagnosed with RLL SCC as well. This was biopsied. She then developed infection around the biopsy site. Hospitalized again 01/20/2024 RLE Cellulitis - treated with IV meropenem and vancomycin for 4 days then levaquin at discharge. Hospitalized again on 01/27/2024 shingles of the abdomen/ back Surgery was postponed until she Underwent removal of prosthesis debridement and synovectomy on 04/14/2024. OR cultures were negative. Discharged on po Doxycycline for 2 weeks. She was seen by the ortho team on 04/22 and doxycycline was extended to be a total of 6 weeks from surgery. On 05/01, she noticed a small amount of clear fluid with a little yellow drainage and blood from thewound. No fevers or chills. This resolved spontaneously. She was seen by dermatology on 05/11. IT was reported that she had a rash under her breast and thatthis was cultures. It grew MRSA R to everything except gentamicin and vancomycin. Instructed to go to [facility] and was admitted from 05/14- 05/05. PICC line placed. Started on IV gentamicin 300 mg daily. During this hospital stay it is reported that she had a culture done from drainage from the shoulder wound with multiple superficial abscesses which grew Beta-hemolytic strep and staph - vanco/ rifampin/ oxacillin/ linezolid. Discharged on gentamicin COPAT on 05/[address] Holly in clinic on 05/18/2024. During clinic it was noted that she had a few suture abscesses along the incision line. These sutures were removed. She did have surrounding erythema. Now with nausea and itching on gentamicin. Placed on benadryl with some improvement. She does note a decreased urine and told she had a rise in creatinine. Her IV antibiotics are being monitored by Dr. Moran, a family physician in [facility]. Discussed with his office today. Creatinine increased from 0.8 to 1.2. Received her last dose of gentamicin at noon today. No fevers or chills. No shoulder pain. She continues to follow with dermatology for RLL SCC. She would like to undergo radiation. Referredto oncology and rad onc for this. 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 PAST SURGICAL HISTORY OF hysterectomy PAST SURGICAL HISTORY OF Right 1989 tibialis anterior tendon PAST SURGICAL HISTORY OF 2014 straightening pronated feet PAST SURGICAL HISTORY OF Right 2021 total knee right PAST SURGICAL HISTORY OF Left 05/2023 total reverse shoulder REMOVAL GALLBLADDER REMV CATARACT EXTRACAP,INSERT LENS Bilateral S ANTERIOR TIBIALIS TENDON TONSILLECTOMY & ADENOIDECTOMY <AGE 11 FAMILY HISTORY Problem Relation Age of Onset Cancer Mother Cerebral Embolism Father CVA, aneurysm, [place], other (normal [Other]) Sister None Sister None Sister Breast Cancer No Family History no known family h/o breast or ovarian cancer Anesthesia Problems No Family History Social History Tobacco Use Smoking status: Never Smokeless tobacco: Never Vaping Use Vaping status: Never Used Substance Use Topics Alcohol use: Yes Comment: week-ends Drug use: No Current Outpatient Medications Medication Sig aspirin, enteric coated (ADULT LOW DOSE ASPIRIN) 81 mg EC tablet Take 1 tablet by mouth two times aday for 14 days. ondansetron (ZOFRAN) 4 mg tablet Take 1 tablet by mouth every 8 hours as needed for nausea/vomiting. L.acidophilus-L.rhamnosus (PROBIOTIC) 15 billion cell capsule Take 1 capsule by mouth once daily. Align furosemide (LASIX) 20 mg tablet Take 20 mg by mouth once daily. metoprolol succinate ER (TOPROL XL) 100 mg Take 50 mg by mouth once daily. potassium chloride ER (KLOR-CON) 20 mEq tablet Take 20 mEq by mouth two times a day. tiotropium bromide (SPIRIVA WITH HANDIHALER INHALATION) Inhale 1 Puff as instructed once daily. montelukast sodium (SINGULAIR ORAL) Take 10 mg by mouth two times a day. semaglutide (OZEMPIC) 2 mg/dose (8 mg/3 mL) pen injector Inject 2 mg subcutaneously one time a week. ondansetron orally disintegrating (ZOFRAN ODT) 4 mg disintegrating tablet Take 1 tablet by mouth every 8 hours as needed. RINVOQ 15 mg tablet TAKE 1 TABLET BY MOUTH 1 TIME A DAY. celecoxib (CELEBREX) 200 mg capsule TAKE 1 CAPSULE BY MOUTH TWICE A DAY levothyroxine (SYNTHROID) 75 mcg tablet TAKE 1.5 TABLETS ON SATURDAY, SATURDAY, SATURDAY, SATURDAY AND2 TABLETS THE OTHER 3 DAYS (Patient taking differently: Take 137 mcg by mouth once daily.) EPIPEN 2-PANCHITO 0.3 mg/0.3 mL (1:1,000) atIn LANSOPRAZOLE 30 mg capsule Take 1 capsule by mouth daily at bedtime. fluticasone (FLONASE) 50 mcg/actuation nasal spray 1 [place] daily at bedtime. in each nostril. Cholecalciferol, Vitamin D3, 1,000 unit ORAL Tab Take 1 tablet by mouth once daily. CITRACAL 500 MG (2,376 MG) EFFERVESCENT TAB Take one(1) tablet two(2) times daily. ADVAIR 250/50 DISKUS Inhale 1 Puff as instructed two times a day. Advair diskus 500/50 No current facility-administered medications for this visit. ALLERGIES Allergen Reactions Keflex [Cephalexin] Hives Penicillins Hives Eliquis [Apixaban] Hives Tree Nuts Anaphylaxis REVIEW OF SYSTEMS: GENERAL: feeling well without fatigue, no recent change in weight HEENT: denies [place], change in hearing or vision, no other ENT complaints RESPIRATORY: no cough CARDIOVASCULAR: no chest pain GI: + nausea MUSCULOSKELETAL: decrease range of motion in the left shoulder SKIN: itching diffusely, rash underneath breast and rash surrounding l shoulder incision NEURO: + fatigue PHYSICAL EXAMINATION: VIDEO EXAM: (if completed, performed via video enabled technology) GENERAL: alert and appropriate, in no distress and well-hydrated, well nourished SKIN: shoulder incision covered with silver dressing Rash underneath bilateral breasts HEAD: normocephalic, no abnormality or lesion noted EYES: no injection and visual acuity is grossly normal RESPIRATORY: breathing non-labored CHEST: equal chest rise with normal respiratory effort EXTREMITIES: Decreased range of motion of the shoulder NEUROLOGIC: no obvious deficit Micro: 10/13: shoulder aspiration with no growth on cultures 12/22: skin biopsy: MRSA CIPROFLOXACIN S <=0.5 CLINDAMYCIN R >=8 ERYTHROMYCIN R >=8 GENTAMICIN S <=0.5 LEVOFLOXACIN S <=0.12 OXACILLIN S <=0.25 1 TETRACYCLINE R >=16 TRIMETHOPRIM/SULFA S <=10 VANCOMYCIN S 1 01/28/2024: 2/2 blood cx with no growth x 7 days 04/14: bone and soft tissue cx: no growth on routine and anaerobic cx 05/11: skin biopsy from dermatology: MRSA CIPROFLOXACIN R >=8 CLINDAMYCIN R >=8 ERYTHROMYCIN R >=8 GENTAMICIN S <=0.5 LEVOFLOXACIN R >=8 OXACILLIN R NR 1 TETRACYCLINE R >=16 TRIMETHOPRIM/SULFA R >=320 VANCOMYCIN S 1 Verbal report from OSH Shoulder culture on 05/14 with MRSA - S - vancomycin, linezolid, rifampin - unclear entirely but think this was a swab of surface drainage from the wound Imaging: personally reviewed 05/19 : Xray L shoulder: post op findings of cement spacer placement. 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 L rTSA 05/20/2023 c/b hardware failure. Now s/p explant and spacer placement with initial OR cx andaspiration with no growth on cultures. Now with ongoing wound issues and drainage from the wound that has been cultured as MRSA. On IV Gentamicin per Dr. Moran, local doc with rise in creatinine and decreased urine output. PLAN: - discussed with Dr. Moran and Dr. Holly today - stop gentamicin - hold any further antibiotic until repeat creatinine is completed. If creatinine is stable (reported as 1.2 on last lab draw) would start IV Vancomycin. Will need creatinine to determine appropriatedosing - Dr. Soriano office to fax current home care and home delivery pharmacy information today - once able, will place IV Vancomycin COPAT, already has line in place and already has received IV Vancomycin and will not need first dose - would recommend twice weekly labs at first for close renal monitoring - will plan to treat for 6 weeks at this point There are no Patient Instructions on file for this visit. I spent a total of 105 minutes on the date of the service which included preparing to see the patient, [id number] patient care, completing clinical documentation, obtaining and/or reviewing separately obtained history, performing a medically appropriate examination, counseling and educating the pa tient/family/caregiver, ordering medications, tests, or procedures, communicating with other HCPs (not separately reported), independently interpreting results (not separately reported), and care coordination (not separately reported) Ros Christianson DO May 21, 2024 documented in this encounterUniversity Hospitals Cleveland [facility] Center11-21-2024 NoteHNO ID: [id number] Author: ROS CHRISTIANSON DO Service: ? Author Type: Physician Type: Progress Notes Filed: 05/21/2024 17:27 Note Text: VIRTUAL VISIT PROGRESS NOTE This is a virtual visit using [employer] Video Visit. It required patient-provider interaction for the medical decision making as documented below. I have communicated my name and active licensure. The patient's identity and physical location were verified at the time of this visit. Either the patient or their legal communications representative has been informed of the risks and benefits of -- and alternatives to -- treatment through a remote evaluation and consents to proceed with the evaluation remotely. Consultation requested by Dr. Holly for an opinion regarding shoulder infection. 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 Underwent reverse shoulder arthroplasty of the left shoulder on 05/20/2023 with underlying RA on rinvoq and no steroids. She had pain ever since the surgery. No fall or issues. Saw Dr. 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 CRP of 3.4, esr of 45. Aspiration with 1177 TNC, 77% neutrophils and no growth on cultures. Alpha defensin and synovasure were negative. No growth on cultures from send out and no crystals seen. However this work up was done on doxycycline that she was placed on for a possible URI. Diagnosed with SCC of the R breast and underwent excision on 10/20/2023 with infection following biopsy. Completed bactrim with improvement on 11/04/2023. She was planned for a 2 stage revision. She was planned for December however developed multiple medical problems. Had cyrotherapy for recurrent macule at SCC site on R breast. Again with surgical site infection. Given Levaquin for 1 week started on 12/18. Skin culture was done on 12/22 with staph, oxacillin susceptible and levaquin sensitive. Urgent care on 2023 with [facility] acquire pneumonia given a zpack and a medrol dose pack. Hosptialized on 12/28 given antibiotic Hospitalized again 01/03 for Asthma exacerbation. Discharged on steroids Hospitalized again on 01/07 diagnosed with colitis. Discharged on metronidazole and levaquin At some point she was diagnosed with RLL SCC as well. This was biopsied. She then developed infection around the biopsy site. Hospitalized again 01/20/2024 RLE Cellulitis - treated with IV meropenem and vancomycin for 4 days then levaquin at discharge. Hospitalized again on 01/27/2024 shingles of the abdomen/ back Surgery was postponed until she Underwent removal of prosthesis debridement and synovectomy on 04/14/2024. OR cultures were negative. Discharged on po Doxycycline for 2 weeks. She was seen by the ortho team on 04/22 and doxycycline was extended to be a total of 6 weeks from surgery. On 05/01, she noticed a small amount of clear fluid with a little yellow drainage and blood from the wound. No fevers or chills. This resolved spontaneously. She was seen by dermatology on 05/11. IT was reported that she had a rash under her breast and that this was cultures. It grew MRSA R to everything except gentamicin and vancomycin. Instructed to go to [facility] and was admitted from 05/14- 05/05. PICC line placed. Started on IV gentamicin 300 mg daily. During this hospital stay it is reported that she had a culture done from drainage from the shoulder wound with multiple superficial abscesses which grew Beta-hemolytic strep and staph - vanco/ rifampin/ oxacillin/ linezolid. Discharged on gentamicin COPAT on 05/[address] Holly in clinic on 05/18/2024. During clinic it was noted that she had a few suture abscesses along the incision line. These sutures were removed. She did have surrounding erythema. Now with nausea and itching on gentamicin. Placed on benadryl with some improvement. She does note a decreased urine and told she had a rise in creatinine. Her IV antibiotics are being monitored by Dr. Moran, a family physician in [facility]. Discussed with his office today. Creatinine increased from 0.8 to 1.2. Received her last dose of gentamicin at noon today. No fevers or chills. No shoulder pain. She continues to follow with dermatology for RLL SCC. She would like to undergo radiation. Referred to oncology and rad onc for this. 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 Author Type: Physician Type: Progress Notes Filed: 05/18/2024 15:27 Note Text: [facility] [place] NOTE Department of Orthopaedics [place] [facility] [place] Gutierrez CLINIC NO.: [id number] DATE: 05/18/2024 Surgery: Removal Of Prosthesis, Includes Debridement And Synovectomy When Performed; Humeral And Glenoid Components (eg, Total Shoulder) - Left and Manual Prep And Insertion Deep Drug Delivery Dev Intra-articular - Left Date: 04/14/2024 Interval Hx: Carolina Gutierrez is back for 4 weeks follow up after above mentioned procedure. she denies any new injury or trauma. she gives her pain 2 out of 10. she is not using pain medication. she is doing physical therapy and improving. she is satisfied with her results so far. She has done well with pain post-op and started having itching and a wound in the sternum area. She saw dermatology for that and they took cultures and showed MRSA and she went back to ED and received a PICC line and she has been treated with gentamicin. She had drainage from multiple superficial abscesses along the incision. No fever, no chills, no night sweets. PHYSICAL EXAMINATION: Incision appears well-healed except few areas of suture abscess along the incision that we removed and cleaned up. Forward elevation is passively to 140 ? and actively to 0 ?. External rotation is passively to 50 ? and actively to 10 ? with 20 degree lag sign. Abduction is actively to 30 ? and Internal rotation is actively to SI. her strength is 4 of 5 in internal rotation , 4 of 5 in external rotation and 4 of 5 in abduction in the plane of scapula. Belly press test is neg. Jobes test is neg and Neer and Lovett are neg. Upper extremity has intact sensory and motor function and has good perfusion distally. RADIOGRAPHIC STUDIES: 3 view xray of the left shoulder shows spacer in a good position and no evidence of loosening, massive glenoid bone loss. ASSESSMENT: Encounter Diagnosis ICD-10-CM 1. 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 Rheumatoid arthritis of multiple sites without rheumatoid factor (HCC) M06.09 3. Dehiscence of operative wound, initial encounter T81.31XA PLAN: I told Carolina Gutierrez that she has developed wound dehiscence and I am glad she is started on IV Abx. We need to get a CT scan and assess her bone loss. We removed all the sutures from the incision and she should continue treating it with local wound care. I would like to get a CT scan and see how much bone stock she has in order to be able to plan the next surgery. I'd like to see her in 3 weeks with repeat xrays. If any questions or concerns arise, she should not hesitate to call. John Holly M.D. M.M.Sc. Shoulder and Elbow Surgeon Orthopaedic Surgery Department [place], [place] [address] Tell: [phone] Appt:[phone]11-18-2024 History of Present illness Narrative* John Holly MD - 05/18/2024 3:12 PM EST [facility] [place] NOTE Department of Orthopaedics [place] [facility] [place]: [place] Gutierrez CLINIC NO.: [id number] DATE: 05/18/2024 Surgery: Removal Of Prosthesis, Includes Debridement And Synovectomy When Performed; Humeral And Glenoid Components (eg, Total Shoulder) - Left and Manual Prep And Insertion Deep Drug Delivery Dev Intra-articular - Left Date: 04/14/2024 Interval Hx: Carolina Gutierrez is back for 4 weeks follow up after above mentioned procedure. she deniesany new injury or trauma. she gives her pain 2 out of 10. she is not using pain medication. she is doing physical therapy and improving. she is satisfied with her results so far. She has done well with pain post-op and started having itching and a wound in the sternum area. She saw dermatology for that and they took cultures and showed MRSA and she went back to ED and received a PICC line and shehas been treated with gentamicin. She had drainage from multiple superficial abscesses along the incision. No fever, no chills, no night sweets. PHYSICAL EXAMINATION: Incision appears well-healed except few areas of suture abscess along the incision that we removed and cleaned up. Forward elevation is passively to 140 and actively to 0 . External rotation is passively to 50 and actively to 10 with 20 degree lag sign. Abduction is actively to 30 and Internal rotation is actively to SI. her strength is 4 of 5 in internal rotation , 4 of 5 in external rotation and 4 of 5 in abduction in the plane of scapula. Belly press test is neg. Jobes test is neg and Neer and Lovett are neg. Upper extremity has intact sensory and motor function and has good perfusion distally. RADIOGRAPHIC STUDIES: 3 view xray of the left shoulder shows spacer in a good position and no evidence of loosening, massive glenoid bone loss. ASSESSMENT: Encounter Diagnosis ICD-10-CM 1. 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 Rheumatoid arthritis of multiple sites without rheumatoid factor (HCC) M06.09 3. Dehiscence of operative wound, initial encounter T81.31XA PLAN: I told Carolina Gutierrez that she has developed wound dehiscence and I am glad she is started on IV Abx. We need to get a CT scan and assess her bone loss. We removed all the sutures from the incision and she should continue treating it with local wound care. I would like to get a CT scan and see how much bone stock she has in order to be able to plan the next surgery. I'd like to see her in 3 weeks with repeat xrays. If any questions or concerns arise, she should not hesitate to call. John Holly M.D. MYuryMYurySc. Shoulder and Elbow Surgeon Orthopaedic Surgery Department [place], [place] [address] Tell: [phone] Appt:[phone] documented in this encounterUniversity Hospitals Cleveland Medical Center11-18-2024 History of Present illness Narrative* Beckie Sandoval RT(R) - 05/18/2024 12:30 PM EST Radiology Service Progress Note PATIENT NAME: Carolina Gutierrez DATE OF SERVICE: May 18, 2024 TIME: 12:40 PM PATIENT IDENTITY VERIFICATION COMPLETED USING TWO (2) IDENTIFIERS: Name and Date of confirmedby patient verbally. FALL SCREENING: Has the patient had 2 falls in the last year or 1 fall with injury or currently using an Ambulatory Assistive Device (Walker, Cane, Wheelchair, Crutches, etc.)? No PATIENT GENDER DATA: Female. status: : No status: NO. PATIENT RELEVANT IMPLANT DATA REVIEWED: Not Applicable PATIENT PRESENTS WITH AN IMPLANTABLE OR ATTACHED HABITAT CONSERVATION PLANNER: No RADIOLOGY DEPARTMENT: General X-ray: Exam(s) Completed: Upper Extremity X- Ray(s): Shoulder, AP / TRUE AP / AXILLARY left PERIPHERAL IV DATA: Not applicable SIGNED BY: RT Saroj(Kamryn) May 18, 2024 12:40 PM documented in this encounterUniversity Hospitals Cleveland Medical Center11-18-2024 NoteHNO ID: [id number] Author: BECKIE SANDOVAL RT(Kamryn) Service: ? Author Type: Technologist Type: Progress Notes Filed: 05/18/2024 12:40 Note Text: Radiology Service Progress Note PATIENT NAME: Carolina Gutierrez DATE OF SERVICE: May 18, 2024 TIME: 12:40 PM PATIENT IDENTITY VERIFICATION COMPLETED USING TWO (2) IDENTIFIERS: Name and Date of confirmed by patient verbally. FALL SCREENING: Has the patient had 2 falls in the last year or 1 fall with injury or currently using an Ambulatory Assistive Device (Walker, Cane, Wheelchair, Crutches, etc.)? No PATIENT GENDER DATA: Female. status: : No status: NO. PATIENT RELEVANT IMPLANT DATA REVIEWED: Not Applicable PATIENT PRESENTS WITH AN IMPLANTABLE OR ATTACHED HABITAT CONSERVATION PLANNER: No RADIOLOGY DEPARTMENT: General X-ray: Exam(s) Completed: Upper Extremity X-Ray(s): Shoulder, AP / TRUE AP / AXILLARY left PERIPHERAL IV DATA: Not applicable SIGNED BY: RT Saroj(R) May 18, 2024 12:40 [facility]11-11-2024 Miscellaneous Notes* Telephone Encounter - Wong Zamora Research Coordinator - 05/11/2024 3:45 PM ESTSummary: PJI Call TELEPHONE ENCOUNTER IRB#: [id number] [facility] PJI Study Title: Multicenter Study on Clinical and Microbiologic Outcomes for Suspected Shoulder Periprosthetic Joint Infection PI: Dr. Titus Garay Special Agent Secret Service: Mayra Zamora Date: 05/11/24 Time: 3:45 PM Pre-op phone interview for surgery on 04/14/24. Patient Phone Interview was completed per study protocol and data recorded in study files. Patient agreed to participate in study. Completed SST survey. Performed by: Mayra Zamora documented in this encounterUniversity Hospitals Cleveland Medical Center11-11-2024 Telephone encounter Note * Telephone Encounter - Wong Zamora Research Coordinator - 05/11/2024 3:45 PM ESTSummary: PJI Call TELEPHONE ENCOUNTER IRB#: [id number] [facility] PJI Study Title: Multicenter Study on Clinical and Microbiologic Outcomes for Suspected Shoulder Periprosthetic Joint Infection PI: Dr. Titus Garay Special Agent Secret Service: Mayra Zamora Date: 05/11/24 Time: 3:45 PM Pre-op phone interview for surgery on 04/14/24. Patient Phone Interview was completed per study protocol and data recorded in study files. Patient agreed to participate in study. Completed SST survey. Performed by: Mayra Zaomra [facility] Work Phone: [phone] 820-878811-11-2024 History of Present illness Narrative* Kellie Watson MD - 05/11/2024 2:40 PM EST Images from the original note were not included. Follow up Diagnosis: Intertrigo Location: inframammary area Last visit: 12/11/2023 Symptoms: burning Status: flaring x 1 week Tried/failed: TAC 0.1% cream Current treatment: Nystatin powder Follow up Diagnosis: Squamous Cell Carcinoma Location: right lower leg anterior Procedure performed: Shave biopsy Date of procedure: 12/19/2023 Current treatment: re-evaluation today Had shoulder surgery and wants scar checked. Ortho has her on doxycycline but she does not have anyfollow up with them. All pertinent medical history, medications, and allergies were reviewed. General Exam: alert, oriented to person, place, and time, normal affect, well appearing Unaccompanied A focused exam completed based on patient reported problems, see below: 1. Impetigo Inframammary Area Protivin moist plaques. Flaring today Discussed that intertrigo is a chronic condition that can be controlled but not cured. Recommend keeping areas as dry as possible to avoid flares. Start Diflucan 150 mg every day x 3 days. Notify clinic if worsening despite treatment. Culture taken today to rule out bacterial superinfection. Specimen 1 - Aerobic culture Account Name: Geovany Perez NPI: Kellie Watson [id number] Related Medications fluconazole (Diflucan) 150 MG tablet 1 p.o. every day x 3 days 2. 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, including hip Right Lower Leg - Anterior Hyperkeratotic plaque at biopsy site Discussed treatment options including excision vs radiation. Patient wishes to proceed with radiation due to history of post op wound infections, has an extremely difficult time healing open wounds on the lower legs. Referral initiated to Dr. Dunham and patient awaiting contact from their office. Related Procedures Ambulatory referral to Oncology 3. Actinic keratosis Chest (Upper Torso, Anterior) Erythematous scaly papules Patient was counseled regarding these sun-induced growths that can develop into squamous cell carcinoma if left untreated. Discussed treatment options, including cryotherapy and topical preparations.It was emphasized that any treated lesions that fail to resolve should be re-evaluated. Patient elected for treatment with Efudex as this has become a chronic issue. Educated on Efudex treatment. Apply to Chest twice a day for two weeks. Discussed that treated areas will become red, crusty, and inflamed. If areas become too uncomfortable, patient may use OTC hydrocortisone cream to help decrease irritation and can discontinue treatment early. Sun exposure should be avoided during treatment. Patient instructed to contact office for any questions or issues during treatment. Lesions that fail toresolve once treated area is healed should be re- evaluated in the office. Handout given to patient fluorouracil (Efudex) 5 % cream - Chest (Upper Torso, Anterior) Apply to directed areas on the chest twice a day x 14 days. Dispense 30 day supply but only use for14 days. 4. Encounter for postoperative wound check Left Shoulder - Anterior Post procedural wound with mild erythema surrounding site Continue doxycycline as prescribed. Notify orthopedic surgeon regarding erythema/possible suture granuloma. Next Visit: prn for any new/changing lesions, rec pt schedule FBSE documented in this encounterJohn J. Pershing VA Medical [id number] History of Present illness Narrative* Merline Prieto NP - 05/04/2024 9:45 AM EST Subjective Patient ID: Carolina Gutierrez is a 63 y.o. female. Osteoporosis assessment: Notes she had LT shoulder surgery on 04/14/24 at [facility]. States they did not do the full sx and has to go back again for another sx soon. Calcium 04/14/24 8.6 Denies jaw/thigh pain. Risk factors (modifiable): Oral steroid medications for asthma off and on since she was 4 yrs old. Risk factors (non-modifiable): Age, Petite build, history of fracture T-6 and T- 9 due to coughing, family history- paternal grandmother Notes she had LT shoulder sx on 04/14/24, and she is going to need another one soon. This injury happened the end of august and she saw Florin. Denies fracture. DEXA scan results: 11/15/23 [facility] L1-L4 0.5, dual femur mean 0.5, dual neck mean - 2.0, dual troch mean-2.1, dual total mean -1.5, 04/11/21 @ [facility] Lspine T-score - 0.7, Hip T-score -2.7 right femoral trochanteric; 02/25/19 @[facility] Lspine T-score - 1.0, RT femoral head T-score-1.7 showing osteopenia, 09/16/12 l-spine -0.5, LT hip -1.3. Fracture history: Spine fracture-T6, 12/2018, T9 fx 03/2022. Calcium intake: Calcium supplements occas-unsure of dosage, some cheese and yogurt, very little dairy. Vitamin D intake: Vitamin D2 supplements , summer sun exposure- history of skin cancer. Bisphosphonate therapy: prolia 06/21/21, prolia 02/21/22, prolia 08/23/22, prolia 04/10/23, prolia 11/18/23 Height and weight taken today (10/21/23) in office without shoes: 56 inches and 188 lbs Objective Ortho Exam No jaw or thigh pain to palpation Assessment/Plan Encounter Diagnoses: ICD-10-CM 1. Osteoporosis, unspecified osteoporosis type, unspecified pathological fracture presence (CMS/[facility]) M81.0 F/U in 2 years, will reorder dexa scan to be done in 10/2025 at [facility], will order reclast since she isosteopenia, she would like to have this done at [facility], will send for approval documented in this encounterJohn J. Pershing VA Medical [id number] NoteHNO ID: [id number] Author: STEVE GAMBINO PA Service: ? Author Type: Physician Theology Professor Type: Progress Notes Filed: 05/01/2024 11:26 Note Text: Steve Gambino PA-C, MSPAS Orthopaedic Surgery at [place] [address] Office: [phone] NAME: Carolina Gutierrez CLINIC NO.: [id number] DATE: 05/01/2024 Interval Hx: Patient presents with: Left Shoulder - Post Op Carolina Gutierrez is back for evaluation of her left shoulder. She is 2 weeks out from her left shoulder surgery with Dr. Holly. She said this morning she noticed a small amount of clear fluid with a little yellow tinge and small amount of blood come from the top of her incision. She did tell her primary care office about this and they recommended to let our office know. She says the drainage has stopped and it was only that small amount. She denies any fevers or chills. She is continuing to take the doxycycline we have her on after surgery. She also continues to have bilateral leg swelling. She denies any significant pain but describes it as heaviness. She says there is some redness to her skin and slight warmth but not painful to touch and no red streaking seen on the skin surface. PHYSICAL EXAMINATION: Shoulder appears unchanged since last visit. Well-healing incision with slight erythema around the border of the incision. No drainage present currently while on the video with her. No wound dehiscence or obvious openings within the incision. For her legs there is apparent edema visible through the video chat as well as some erythema of her legs. RADIOGRAPHIC STUDIES: all previous imaging studies were reviewed New imaging today: None ASSESSMENT: Encounter Diagnosis ICD-10-CM 1. S/P shoulder surgery Z98.890 PLAN: The nature of the problem and treatment options available were discussed in detail. We discussed that this was a small pocket of fluid underneath the skin that came towards the surface. The fact that it has stopped draining and was mostly clear-colored fluid with a tinge of yellow and slight blood is reassuring. She has been on the doxycycline since her surgery and her labs are coming back negative for infection workup. I did recommend putting a bandage over the top of her incision to see if she can collect any more fluid as well as to protect that area. She will keep us updated if the draining resumes. For her legs, I recommended trying to do calf raises and toe raises throughout the day to help pump some of the fluid that has collected in her lower legs. She is back to work and doing a lot of sitting which we discussed is likely leading to the dependent edema. I also recommended wearing long socks to try to use some compression. She says she has compression stockings at home and will wear these. She will continue to update us if things progress or get worse. She is scheduled to see Dr. Holly on June 05. Xray needed at next visit: Yes Steve Gambino PA-C Orthopaedic Surgery Department [facility] 05/01/2024 11:06 [facility]11-01-2024 History of Present illness Narrative* Steve Gambino PA - 05/01/2024 11:02 AM EDT Steve Gambino PA-C, [facility] Orthopaedic Surgery at [place] [address] Office: [phone] NAME: Carolina Gutierrez CLINIC NO.: [id number] DATE: 05/01/2024 Interval Hx: Patient presents with: Left Shoulder - Post Op Carolina Gutierrez is back for evaluation of her left shoulder. She is 2 weeks out from her left shouldersurgery with Dr. Holly. She said this morning she noticed a small amount of clear fluid with a little yellow tinge and small amount of blood come from the top of her incision. She did tell her primary care office about this and they recommended to let our office know. She says the drainage has stopped and it was only that small amount. She denies any fevers or chills. She is continuing to takethe doxycycline we have her on after surgery. She also continues to have bilateral leg swelling. She denies any significant pain but describes itas heaviness. She says there is some redness to her skin and slight warmth but not painful to touchand no red streaking seen on the skin surface. PHYSICAL EXAMINATION: Shoulder appears unchanged since last visit. Well-healing incision with slight erythema around the border of the incision. No drainage present currently while on the video with her. No wound dehiscence or obvious openings within the incision. For her legs there is apparent edema visible through the video chat as well as some erythema of herlegs. RADIOGRAPHIC STUDIES: all previous imaging studies were reviewed New imaging today: None ASSESSMENT: Encounter Diagnosis ICD-10-CM 1. S/P shoulder surgery Z98.890 PLAN: The nature of the problem and treatment options available were discussed in detail. We discussed that this was a small pocket of fluid underneath the skin that came towards the surface. The fact that it has stopped draining and was mostly clear-colored fluid with a tinge of yellow and slight blood is reassuring. She has been on the doxycycline since her surgery and her labs are coming back negative for infection workup. I did recommend putting a bandage over the top of her incision to seeif she can collect any more fluid as well as to protect that area. She will keep us updated if the draining resumes. For her legs, I recommended trying to do calf raises and toe raises throughout the day to help pumpsome of the fluid that has collected in her lower legs. She is back to work and doing a lot of sitting which we discussed is likely leading to the dependent edema. I also recommended wearing long socks to try to use some compression. She says she has compression stockings at home and will wear these . She will continue to update us if things progress or get worse. She is scheduled to see Dr. Holly on June 05. Xray needed at next visit: Yes Steve Gambino PA-C Orthopaedic Surgery Department [facility] 05/01/2024 11:06 AM documented in this encounterUniversity [facility]als [facility]10-[facility]24 Telephone encounter Note * Telephone Encounter - Steve Gambino PA - 04/24/2024 9:05 AM EDT Show called in to report swelling in bilateral lower extremities. She says it is worse than usual. She reports prior swelling in her legs from prior antibiotic usage and she has concerns that the doxycycline is causing this. We discussed the doxycycline could be causing this, however we frequently see lower extremity swelling after surgery. She has been up walking around she says and is going away this weekend and plans to do more walking. We discussed actually being on her feet can make the swelling worse and I would recommend trying to elevate her feet as much as possible. We discussed wearing longer socks to simulate compression stockings. Unfortunately we do keep her on the antibiotics at least until Saturday when we can finalize her cultures from surgery. And she will give us an update early next week. If she continues to have swelling we will discuss with Dr. Holly about possible antibiotic change. [facility]10-25-2024 Miscellaneous Notes* Telephone Encounter - Steve Gambino PA - 04/24/2024 9:05 AM EDT Show called in to report swelling in bilateral lower extremities. She says it is worse than usual. She reports prior swelling in her legs from prior antibiotic usage and she has concerns that the doxycycline is causing this. We discussed the doxycycline could be causing this, however we frequently see lower extremity swelling after surgery. She has been up walking around she says and is going away this weekend and plans to do more walking. We discussed actually being on her feet can make the swelling worse and I would recommend trying to elevate her feet as much as possible. We discussed wearing longer socks to simulate compression stockings. Unfortunately we do keep her on the antibiotics at least until Saturday when we can finalize her cultures from surgery. And she will give us an update early next week. If she continues to have swelling we will discuss with Dr. Holly about possible antibiotic change. documented in this encounterUniversity Hospitals [facility] Center10-23-2024 History of Present illness Narrative* Steve Gambino PA - 04/22/2024 9:00 AM EDT First postoperative clinic visit Carolina had Removal Of Prosthesis, Includes Debridement And Synovectomy When Performed; Humeral And Glenoid Components (eg, Total Shoulder) - Left and Manual Prep And Insertion Deep Drug Delivery Dev Intra-articular - Left on 04/14/2024 with John Holly. Overall they say they're doing well. They are taking oxycodone and tylenol for pain. No complications or concerns at the moment. Denies wound drainage. Continues to wear the sling. Her labs have come back negative so far for infection. She has been taking the doxycycline She is not having any pain at the moment but does have pain at night. Sling: In place. No issues Wound is healing well, no drainage, unusual inflammation or edema. Incision care discussed Dressing removed: Dressing left on as she is only 1 week from surgery. They will remove in 1 week Sutures removed:Not needed Xrays this visit: Prior arthroplasty is removed and her cement antibiotic spacer is stable comparedto postop x-ray Diagnosis: S/p Removal Of Prosthesis, Includes Debridement And Synovectomy When Performed; Humeral And Glenoid Components (eg, Total Shoulder) - Left and Manual Prep And Insertion Deep Drug Delivery Dev Intra-articular - Left PLAN Return to clinic in 5-[address] Holly. Begin to wean out of the sling in 2 weeks. Keep sling on at night for the next 4 weeks No PT for the shoulder Discussed restrictions of no active motion of the surgical arm, no forceful motions/lifting/pushing. 1 pound weight restriction. Home exercises were demonstrated and handout given. Advised to continue to monitor for signs of infection, and proper wound care. Xrays are not needed before next visit. Continue with Doxycycline for 5 more weeks until she is 6 weeks from surgery. Carolina Gutierrez has requested a refill. Requested Prescriptions Signed Prescriptions Disp Refills oxyCODONE IR (ROXICODONE) 5 mg immediate release tablet 21 tablet 0 Sig: Take 1 tablet by mouth every 8 hours as needed for pain for up to 7 days. doxycycline hyclate (VIBRAMYCIN) 100 mg capsule 56 capsule 0 Sig: Take 1 capsule (100 mg) by mouth two times a day for 28 days. Encounter Diagnosis ICD-10-CM 1. S/P shoulder surgery Z98.890 XR SHOULDER GENERAL 3V OR MORE AP/TRUE AP/OTHER LEFT oxyCODONE IR (ROXICODONE) 5 mg immediate release tablet doxycycline hyclate (VIBRAMYCIN) 100 mg capsule 2. Loose orthopedic implant, subsequent encounter T84.039D XR SHOULDER GENERAL 3V OR MORE AP/TRUE AP/OTHER LEFT oxyCODONE IR (ROXICODONE) 5 mg immediate release tablet doxycycline hyclate (VIBRAMYCIN) 100 mg capsule PDMP/OARRS checked. No concerns. The approved medication requests have been transmitted electronically. ALIA Sanders documented in this encounterUniversity Hospitals Cleveland [facility] Center10-23-2024 NoteHNO ID: [id number] Author: STEVE GAMBINO PA Service: ? Author Type: Physician Theology Professor Type: Progress Notes Filed: 04/22/2024 09:50 Note Text: First postoperative clinic visit Carolina had Removal Of Prosthesis, Includes Debridement And Synovectomy When Performed; Humeral And Glenoid Components (eg, Total Shoulder) - Left and Manual Prep And Insertion Deep Drug Delivery Dev Intra-articular - Left on 04/14/2024 with John Holly. Overall they say they're doing well. They are taking oxycodone and tylenol for pain. No complications or concerns at the moment. Denies wound drainage. Continues to wear the sling. Her labs have come back negative so far for infection. She has been taking the doxycycline She is not having any pain at the moment but does have pain at night. Sling: In place. No issues Wound is healing well, no drainage, unusual inflammation or edema. Incision care discussed Dressing removed: Dressing left on as she is only 1 week from surgery. They will remove in 1 week Sutures removed:Not needed Xrays this visit: Prior arthroplasty is removed and her cement antibiotic spacer is stable compared to postop x-ray Diagnosis: S/p Removal Of Prosthesis, Includes Debridement And Synovectomy When Performed; Humeral And Glenoid Components (eg, Total Shoulder) - Left and Manual Prep And Insertion Deep Drug Delivery Dev Intra-articular - Left PLAN Return to clinic in 5-[address] Holly. Begin to wean out of the sling in 2 weeks. Keep sling on at night for the next 4 weeks No PT for the shoulder Discussed restrictions of no active motion of the surgical arm, no forceful motions/lifting/pushing. 1 pound weight restriction. Home exercises were demonstrated and handout given. Advised to continue to monitor for signs of infection, and proper wound care. Xrays are not needed before next visit. Continue with Doxycycline for 5 more weeks until she is 6 weeks from surgery. Carolina Manning Matt has requested a refill. Requested Prescriptions Signed Prescriptions Disp Refills oxyCODONE IR (ROXICODONE) 5 mg immediate release tablet 21 tablet 0 Sig: Take 1 tablet by mouth every 8 hours as needed for pain for up to 7 days. doxycycline hyclate (VIBRAMYCIN) 100 mg capsule 56 capsule 0 Sig: Take 1 capsule (100 mg) by mouth two times a day for 28 days. Encounter Diagnosis ICD-10-CM 1. S/P shoulder surgery Z98.890 XR SHOULDER GENERAL 3V OR MORE AP/TRUE AP/OTHER LEFT oxyCODONE IR (ROXICODONE) 5 mg immediate release tablet doxycycline hyclate (VIBRAMYCIN) 100 mg capsule 2. Loose orthopedic implant, subsequent encounter T84.039D XR SHOULDER GENERAL 3V OR MORE AP/TRUE AP/OTHER LEFT oxyCODONE IR (ROXICODONE) 5 mg immediate release tablet doxycycline hyclate (VIBRAMYCIN) 100 mg capsule PDMP/OARRS checked. No concerns. The approved medication requests have been transmitted electronically. Steve Gambino, [facility]10-23-2024 History of Present illness Narrative* Zia Patel RT(R) - 04/22/2024 8:35 AM EDT Radiology Service Progress Note PATIENT NAME: Carolina Gutierrez DATE OF SERVICE: April 22, 2024 TIME: 9:14 AM PATIENT IDENTITY VERIFICATION COMPLETED USING TWO (2) IDENTIFIERS: Name and Date of confirmedby patient verbally. FALL SCREENING: Has the patient had 2 falls in the last year or 1 fall with injury or currently using an Ambulatory Assistive Device (Walker, Cane, Wheelchair, Crutches, etc.)? No PATIENT GENDER DATA: Female. status: : No status: NO. PATIENT RELEVANT IMPLANT DATA REVIEWED: Not Applicable PATIENT PRESENTS WITH AN IMPLANTABLE OR ATTACHED HABITAT CONSERVATION PLANNER: No RADIOLOGY DEPARTMENT: General X-ray: Exam(s) Completed: Upper Extremity X- Ray(s): Shoulder, AP / TRUE AP / AXILLARY left PERIPHERAL IV DATA: Not applicable SIGNED BY: RT Emiyl(R) April 22, 2024 9:14 AM documented in this encounterUniversity Hospitals Cleveland Medical Center10-23-2024 NoteHNO ID: [id number] Author: ZIA PATEL RT(R) Service: ? Author Type: Operations Systems Specialist Type: Progress Notes Filed: 04/22/2024 09:15 Note Text: Radiology Service Progress Note PATIENT NAME: Carolina Gutierrez DATE OF SERVICE: April 22, 2024 TIME: 9:14 AM PATIENT IDENTITY VERIFICATION COMPLETED USING TWO (2) IDENTIFIERS: Name and Date of confirmed by patient verbally. FALL SCREENING: Has the patient had 2 falls in the last year or 1 fall with injury or currently using an Ambulatory Assistive Device (Walker, Cane, Wheelchair, Crutches, etc.)? No PATIENT GENDER DATA: Female. status: : No status: NO. PATIENT RELEVANT IMPLANT DATA REVIEWED: Not Applicable PATIENT PRESENTS WITH AN IMPLANTABLE OR ATTACHED HABITAT CONSERVATION PLANNER: No RADIOLOGY DEPARTMENT: General X-ray: Exam(s) Completed: Upper Extremity X-Ray(s): Shoulder, AP / TRUE AP / AXILLARY left PERIPHERAL IV DATA: Not applicable SIGNED BY: Zia Patel, RT(R) April 22, 2024 9:14 [facility]10-21-2024 Instructions* Patient Instructions* Steve Gambino PA - 04/20/2024 10:48 AM EDT - Stop at the front office attendant to schedule a follow up with Dr. Holly in 5-7 weeks - Begin to wean out of the sling during the day starting in 3 weeks. Continue to wear the sling at night for 5 more weeks - No active motion of the surgical arm. No reaching, pulling, pushing. You have about a 1 pound weight restriction - Continue to monitor the shoulder/incision for signs of infection - Ok to shower, but do not scrub the incision. No lotions or creams on incision. Avoid pools, baths, hot tubs documented in this encounterUniversity Hospitals Cleveland Medical Center10-21-2024 Telephone encounter Note * Telephone Encounter - Sharita Antonio RN - 04/20/2024 9:45 AM EDT DOS: 04/14/24 Type of surgery: REMOVAL OF PROSTHESIS, INCLUDES DEBRIDEMENT AND SYNOVECTOMY WHEN PERFORMED; HUMERAL AND GLENOID COMPONENTS (EG, TOTAL SHOULDER) (Left) Catheter site: left IS Solution: 0.2% Ropivacaine Rates: 59 Venkata [phone] [place] 04/20/24: Pt removed catheter yesterday without issue. Pain tolerable. [facility]10-21-2024 Miscellaneous Notes* Telephone Encounter - Sharita Antonio RN - 04/20/2024 9:45 AM EDT DOS: 04/14/24 Type of surgery: REMOVAL OF PROSTHESIS, INCLUDES DEBRIDEMENT AND SYNOVECTOMY WHEN PERFORMED; HUMERAL AND GLENOID COMPONENTS (EG, TOTAL SHOULDER) (Left) Catheter site: left IS Solution: 0.2% Ropivacaine Rates: 59 Venkata [phone] [facility] 04/20/24: Pt removed catheter yesterday without issue. Pain tolerable. * Telephone Encounter - Britt Lopez APRN.CNP - 04/18/2024 1:35 PM EDT DOS: 04/14/24 Type of surgery: REMOVAL OF PROSTHESIS, INCLUDES DEBRIDEMENT AND SYNOVECTOMY WHEN PERFORMED; HUMERAL AND GLENOID COMPONENTS (EG, TOTAL SHOULDER) (Left) Catheter site: left IS Solution: 0.2% Ropivacaine Rates: 59 Venkata [phone] [facility] 04/18/24: Called and talked to pt, states pain level is: 3 The pump reads: 617.3 mL Pt states catheter dressing is intact, denies: redness, fever, draining, edema, pain Does pt c/o SOB, hoarse voice, difficulty swallowing No Denies c/o metallic taste in mouth, ringing in ears, dizziness etc. Pt is able to move: left fingers Will call pt again Saturday. Comments: Ensured pt has APMS phone number if issues arise. Pt to stop and remove nerve block tomorrow. * Telephone Encounter - Elvi Cook RN - 04/17/2024 1:13 PM EDT DOS: 04/14/24 Type of surgery: REMOVAL OF PROSTHESIS, INCLUDES DEBRIDEMENT AND SYNOVECTOMY WHEN PERFORMED; HUMERAL AND GLENOID COMPONENTS (EG, TOTAL SHOULDER) (Left) Catheter site: left IS Solution: 0.2% Ropivacaine Rates: 59 Venkata [phone] [place] 04/17 Called and talked to pt, states pain level is: 3 Pt states catheter dressing is intact, denies: redness, fever, draining, edema, pain Does pt c/o SOB, hoarse voice, difficulty swallowing No Denies c/o metallic taste in mouth, ringing in ears, dizziness etc. Pt is able to move: fingers Will call pt again tomorrow. Comments: SOB has gone away after holding pump yesterday. Turned it back on last night. How many pain pills has the patient used in the last 24 hours? tylenol and oxycodone * Telephone Encounter - Elvi Cook RN - 04/16/2024 9:24 AM EDT DOS: 04/14/24 Type of surgery: REMOVAL OF PROSTHESIS, INCLUDES DEBRIDEMENT AND SYNOVECTOMY WHEN PERFORMED; HUMERAL AND GLENOID COMPONENTS (EG, TOTAL SHOULDER) (Left) Catheter site: left IS Solution: 0.2% Ropivacaine Rates: 59 Venkata Herrmann [phone] [place] 04/16 Called and talked to pt, states pain level is: 5 The pump reads: 863 Pt states catheter dressing is intact, denies: redness, fever, draining, edema, pain Does pt c/o SOB, hoarse voice, difficulty swallowing Yes: c/o SOB, patient instructed to place pumpon hold to see if it resolves, if not patient is advised to go to the ER if SOB persists. Denies c/o metallic taste in mouth, ringing in ears, dizziness etc. Pt is able to move: fingers Will call pt again tomorrow. Comments: see above comment regarding SOB How many pain pills has the patient used in the last 24 hours? oxycodone * Telephone Encounter - Jeny Arriaza APRN.CNP - 04/15/2024 1:46 PM EDT DOS: 04/14/24 Type of surgery: REMOVAL OF PROSTHESIS, INCLUDES DEBRIDEMENT AND SYNOVECTOMY WHEN PERFORMED; HUMERAL AND GLENOID COMPONENTS (EG, TOTAL SHOULDER) (Left) Catheter site: left IS Solution: 0.2% Ropivacaine Rates: 59 Venkata [phone] [place] Switched to home-going pump, educated on its use, discussed LA/SE and s/s that should be reported, patient/famiyl verbalized understanding. Will follow up with phone call. documented in this encounterUniversity Hospitals Cleveland Medical Center10-19-2024 Telephone encounter Note * Telephone Encounter - Britt Lopez APRN.CNP - 04/18/2024 1:35 PM EDT DOS: 04/14/24 Type of surgery: REMOVAL OF PROSTHESIS, INCLUDES DEBRIDEMENT AND SYNOVECTOMY WHEN PERFORMED; HUMERAL AND GLENOID COMPONENTS (EG, TOTAL SHOULDER) (Left) Catheter site: left IS Solution: 0.2% Ropivacaine Rates: 59 Venkata [phone] [place] 04/18/24: Called and talked to pt, states pain level is: 3 The pump reads: 617.3 mL Pt states catheter dressing is intact, denies: redness, fever, draining, edema, pain Does pt c/o SOB, hoarse voice, difficulty swallowing No Denies c/o metallic taste in mouth, ringing in ears, dizziness etc. Pt is able to move: left fingers Will call pt again Saturday. Comments: Ensured pt has APMS phone number if issues arise. Pt to stop and remove nerve block tomorrow. [facility] Work Phone: [phone] Telephone encounter Note* Telephone Encounter - Elvi Cook RN - 04/17/2024 1:13 PM EDT DOS: 04/14/24 Type of surgery: REMOVAL OF PROSTHESIS, INCLUDES DEBRIDEMENT AND SYNOVECTOMY WHEN PERFORMED; HUMERAL AND GLENOID COMPONENTS (EG, TOTAL SHOULDER) (Left) Catheter site: left IS Solution: 0.2% Ropivacaine Rates: 59 Venkata [phone] [place] 04/17 Called and talked to pt, states pain level is: 3 Pt states catheter dressing is intact, denies: redness, fever, draining, edema, pain Does pt c/o SOB, hoarse voice, difficulty swallowing No Denies c/o metallic taste in mouth, ringing in ears, dizziness etc. Pt is able to move: fingers Will call pt again tomorrow. Comments: SOB has gone away after holding pump yesterday. Turned it back on last night. How many pain pills has the patient used in the last 24 hours? tylenol and oxycodone [facility]10-17-2024 Telephone encounter Note* Telephone Encounter - Elvi Cook RN - 04/16/2024 9:24 AM EDT DOS: 04/14/24 Type of surgery: REMOVAL OF PROSTHESIS, INCLUDES DEBRIDEMENT AND SYNOVECTOMY WHEN PERFORMED; HUMERAL AND GLENOID COMPONENTS (EG, TOTAL SHOULDER) (Left) Catheter site: left IS Solution: 0.2% Ropivacaine Rates: 59 Venkata [phone] [place] 04/16 Called and talked to pt, states pain level is: 5 The pump reads: 863 Pt states catheter dressing is intact, denies: redness, fever, draining, edema, pain Does pt c/o SOB, hoarse voice, difficulty swallowing Yes: c/o SOB, patient instructed to place pumpon hold to see if it resolves, if not patient is advised to go to the ER if SOB persists. Denies c/o metallic taste in mouth, ringing in ears, dizziness etc. Pt is able to move: fingers Will call pt again tomorrow. Comments: see above comment regarding SOB How many pain pills has the patient used in the last 24 hours? oxycodone [facility]10-16-2024 Telephone encounter Note* Telephone Encounter - Jeny Arriaza APRN.CNP - 04/15/2024 1:46 PM EDT DOS: 04/14/24 Type of surgery: REMOVAL OF PROSTHESIS, INCLUDES DEBRIDEMENT AND SYNOVECTOMY WHEN PERFORMED; HUMERAL AND GLENOID COMPONENTS (EG, TOTAL SHOULDER) (Left) Catheter site: left IS Solution: 0.2% Ropivacaine Rates: 59 Venkata [phone] [place] Switched to home-going pump, educated on its use, discussed LA/SE and s/s that should be reported, patient/famiyl verbalized understanding. Will follow up with phone call. [facility]10-16-2024 NoteHNO ID: [id number] Author: ROXANNA BOLANOS PA-C Service: Orthopaedic Surgery Author Type: Physician Theology Professor Type: Plan of Care Filed: 04/15/2024 12:16 Note Text: Orthopaedic Surgery Plan of Care Procedure: Procedure(s) (LRB): REMOVAL OF PROSTHESIS, INCLUDES DEBRIDEMENT AND SYNOVECTOMY WHEN PERFORMED; HUMERAL AND GLENOID COMPONENTS (EG, TOTAL SHOULDER) (Left) Post-OP Day: 1 Service Date: 04/15/24 Service Time: 12:08 PM S: Carolina Gutierrez is a 63 year old (Female/Male) Female POD 1 s/p Procedure(s) (LRB): REMOVAL OF PROSTHESIS, INCLUDES DEBRIDEMENT AND SYNOVECTOMY WHEN PERFORMED; HUMERAL AND GLENOID COMPONENTS (EG, TOTAL SHOULDER) (Left) with (Physician) Dr. Holly. The patient states that her pain is controlled at this time with current analgesic regimen. No acute issues reported overnight. The patient is doing well with no current acute issues. The patient is tolerating PT/OT, who recommends Home (Self Care) and is progressing on schedule. OT to see patient this afternoon for final clearance. The patient denies any further medical complaints or pain. The patient denies headache, lightheadedness, dizziness, C/P, SOB, ABD pain, dysuria, N/V/D, fever, chills, or excessive calf pain/tenderness. Orthopaedic Comorbidities: Principal Problem: S/P shoulder surgery Morbid Obesity w/ BMI 40.0 - 44.9 (adult) (wt in last 30 days) POA: Yes: O: Orthopaedic Exam: NAD. Afebrile. AANDOX3. VSS. Labs WNL or at baseline. Mepilex dressing C/D/I Procare sling in place Vital Signs: BP: 95/53 Temp: 36.8 ?C (98.2 ?F) Temp src: Oral Pulse: 92 Resp: 16 O2 Therapy: Room Air SpO2: 94 % CBC: Hemoglobin (g/dL) Date Value 04/14/2024 10.1 07/03/2007 13.7 Hematocrit (%) Date Value 04/14/2024 31.6 07/03/2007 40.2 WBC (k/uL) Date Value 04/14/2024 11.81 07/03/2007 7.11 BMP: Glucose (mg/dL) Date Value 04/14/2024 224 01/27/2014 99 Potassium (mmol/L) Date Value 04/14/2024 4.1 01/27/2014 4.5 Sodium (mmol/L) Date Value 04/14/2024 139 01/27/2014 140 Chloride (mmol/L) Date Value 04/14/2024 104 01/27/2014 103 CO2 (mmol/L) Date Value 04/14/2024 21 01/27/2014 27 Creatinine (mg/dL) Date Value 04/14/2024 0.52 01/27/2014 0.59 BUN (mg/dL) Date Value 04/14/2024 9 01/27/2014 12 Anion Gap (mmol/L) Date Value 04/14/2024 14 01/27/2014 10 Calcium (mg/dL) Date Value 01/27/2014 9.9 Calcium, Total (mg/dL) Date Value 04/14/2024 8.6 Vital signs and labs reviewed. A/P: - Activity: NWB - Wound: mepilex dressing x 7 days - Pain: Multimodal, PO and IV breakthrough, PNC in place and monitored by APMS. Patient to go home with ambit pump - DVT Prophylaxis: ASA 81mg BID x 14 days - Antibiotics: Merary-operative x 24 hours followed by Doxycycline 100mg BID x 14 days - Cultures to continue to grow and be watched. - Vazquez: Per nursing protocol - Diet: regular - MIVF, HLIV when tolerating sufficient PO - Acute Blood Loss Anemia: Hgb >7.0, stable with no indication for transfusion at this time - Electrolytes/Renal: BMP WNL or at baseline, otherwise PO potassium protocol - Consults: PT/OT/CM - PT/OT: Skilled for Home (Self Care) Plan: OT- will see patient for additional session this afternoon PNC - will be switched over to home going ambit pump Anticipate discharge today Plan of Care: The plan of care was discussed with the Provider, RN, and Patient. All questions and concerns regarding the plan of care were addressed to the satisfaction of all participants. Thank you, I sincerely appreciate the opportunity to participate in this patient's care. Roxanna Bolanos PA-C Physician Theology Professor I Orthopaedic Surgery [facility] [phone] Between 5 PM (17:00) - 7 AM (07:00) during weekdays (Mon - Sat), all day on weekends (Sat AND Sun), or if urgent, please page on-call orthopaedic surgery resident for any issues at: 2BONE ([id number]) [facility] HNO ID: [id number] Author: ANDREW JAIMES MD Service: Orthopaedic Surgery Author Type: Resident Type: Progress Notes Filed: 04/15/2024 16:01 Note Text: Orthopaedic Surgery Inpatient Progress Note Patient Name: Carolina Gutierrez Attending: Dr. Calista ponce. providers found Date of Admission: 04/14/2024 5:40 AM Assessment: Carolina Gutierrez is a 63 year old year old female who is s/p LEFT Explant rTSA + Spacer on 04/14/[address] Holly. Plan: - Activity: NWB LUE with Mepilex in UltraSling - Wound: mepilex dressing x 7 days - Pain: Multimodal, PO and IV breakthrough, PNC in place and monitored by APMS. Patient to go home with ambit pump - DVT Prophylaxis: ASA 81mg BID x 14 days - Antibiotics: Merary-operative x 24 hours followed by Doxycycline 100mg BID x 14 days - Cultures to continue to grow and be watched. - Vazquez: Per nursing protocol - Diet: regular - MIVF, HLIV when tolerating sufficient PO - Acute Blood Loss Anemia: Hgb >7.0, stable with no indication for transfusion at this time - Electrolytes/Renal: BMP WNL or at baseline, otherwise PO potassium protocol - Consults: PT/OT/CM - PT/OT: Skilled for Home (Self Care) Plan of care discussed with: Provider, RN, Patient. Subjective: No events overnight. Patient doing well this morning, denies new onset pain, numbness and tingling in the extremities. Pt denies fevers, chills and night sweats. Objective: Vitals: 04/15/24 0426 04/15/24 0516 04/15/24 0744 04/15/24 1113 BP: 95/52 95/53 Pulse: 84 99 92 Resp: 18 16 18 16 Temp: 36.1 ?C (97 ?F) 36.8 ?C (98.2 ?F) TempSrc: Temporal Oral SpO2: 94% 93% 95% 94% Physical Exam: General: Awake, alert, converses appropriately, no acute distress Respiratory: Unlabored on room air, no obvious wheezing Cardiovascular: RRR to peripheral palpation Focused Musculoskeletal Exam: LEFT Upper Extremity: Inspection: no evidence of strikethrough on Mepilex Palpation: TTP about the LEFT shoulder Compartments: Arm and forearm compartments soft and compressible Sensory: SILT over shoulder, arm, forearm, hand and digits 1-5 (C5-T1) Motor: Motor intact AIN/PIN/ulnar; 5/5 Deltoid/Biceps/Triceps/Wrist Flexors and Extensors Vascular: radial 2+ to palp; CR < 2 sec; fingers warm AND well-perfused Intake/Output Summary (Last 24 hours) at 04/15/2024 1557 Last data filed at 04/15/2024 1154 Gross per 24 hour Intake 2640 ml Output 2900 ml Net -260 ml Lab Review: Hemoglobin (g/dL) Date Value 04/14/2024 10.1 (L) 03/30/2024 12.0 07/03/2007 13.7 10/10/2005 13.3 WBC (k/uL) Date Value 04/14/2024 11.81 (H) 03/30/2024 11.32 (H) 07/03/2007 7.11 10/10/2005 8.93 Glucose, Point of Care (mg/dL) Date Value 04/14/2024 132 (A) 04/14/2024 119 (A) Creatinine (mg/dL) Date Value 04/14/2024 0.52 (L) 03/30/2024 0.70 01/27/2014 0.59 (L) 04/18/2011 0.55 (L) Sodium (mmol/L) Date Value 04/14/2024 139 03/30/2024 140 01/27/2014 140 04/18/2011 138 Potassium (mmol/L) Date Value 04/14/2024 4.1 03/30/2024 4.1 01/27/2014 4.5 04/18/2011 3.7 Calcium (mg/dL) Date Value 01/27/2014 9.9 04/18/2011 9.6 Calcium, Total (mg/dL) Date Value 04/14/2024 8.6 03/30/2024 9.6 Lines, Drains, and Airways Line Duration Subcutaneous 04/14/24 0652 Peripheral Nerve Block Left Neck 1 day Andrew Jaimes MD PGY-3 Orthopaedic Surgery [facility] Between 5PM to 7AM, or if urgent, please page the orthopaedic on-call resident at: 2BONE ([phone]) for [facility] patients [phone] for [facility] patients [id number] for [facility] patients [address] for [facility] patients If no response from 1st page within 15 minutes, please contact Ortho PA: ALIA Velasquez: ALIA Castro: Roxanna Byers PA: Cate Zavala PA: [facility]10-15-2024 NoteHNO ID: [id number] Author: MER EMANUEL APRN.VETERINARY MEAT INSPECTOR Service: ? Author Type: Nurse Home Health Clinical Supervisor Type: Anesthesia Procedure Notes Filed: 04/14/2024 09:22 Note Text: ANESTHESIOLOGY PROCEDURE NOTE PIV General Information Procedure Start Time/Medication Administration: 04/14/2024 8:20 AM Procedure End Time: 04/14/2024 8:21 AM Patient Location: OR Staffing Anesthesiologist: Poly Prieto MD Performed by: anesthesiologist Preparation Sterility Preparation: hand hygiene performed prior to procedure, surgical cap used, mask used Site Prep: alcohol Procedure Details Indication: need for IV access Needle Size/Type: 18 gauge angiocath Orientation: Right Location: Wrist Imaging Guidance Used: No SIGNATURE: Mer Emanuel APRN.CRNA PATIENT NAME: Carolina Manning Alt DATE: April 14, 2024 TIME: 9:20 AM CSN: [id number]10[facility]24 NoteHNO ID: [id number] Author: MER EMANUEL APRN.VETERINARY MEAT INSPECTOR Service: ? Author Type: Nurse Home Health Clinical Supervisor Type: Anesthesia Procedure Notes Filed: 04/14/2024 09:20 Note Text: ANESTHESIOLOGY PROCEDURE NOTE Airway General Information Procedure Start Time/Medication Administration: 04/14/2024 8:14 AM Procedure End Time: 04/14/2024 8:14 AM Patient location during procedure: OR Patient identity confirmed: arm band and patient Staffing VETERINARY MEAT INSPECTOR: Mer Emanuel APRN.VETERINARY MEAT INSPECTOR Performed by: KAREN Indications and Patient Condition Indications for airway management: anesthesia Preoxygenated: yes anesthesia circuit Patient position: sniffing Method: asleep Difficult Mask: No Airway Accessory: oral airway Final Airway Details Final airway type: endotracheal airway Final Endotracheal Airway: ETT Cuffed: yes Successful intubation technique: video laryngoscopy Devices used: [employer] Endotracheal tube insertion site: oral Blade: [place] Blade size: #3 ETT size (mm): 7.0 Measured from: lips Measurement (cm): 21 Placement verified by: capnometry Cormack-Lehane Classification: grade I - full view of glottis Number of attempts at approach: 1 Airway not difficult SIGNATURE: Mer Emanuel APRN.CRNA PATIENT NAME: Carolina Manning Alt DATE: April 14, 2024 TIME: 9:20 AM CSN: [id number] Health System10-15-2024 NoteHNO ID: [id number] Author: MISAEL VALVERDE MD Service: ? Author Type: Resident Type: Anesthesia Procedure Notes Filed: 04/14/2024 08:45 Note Text: Attestation signed by Desean Solitario MD at 04/14/2024 8:54 AM I was present for the entire procedure supervising the resident and participated in the perez components of the procedure. Pt tolerated the procedure well with out any complications. Desean Solitario MD. Staff Anesthesiologist Pgr: [phone] ANESTHESIOLOGY PROCEDURE NOTE Peripheral Nerve Block General Information Procedure Start Time/Medication Administration: 04/14/2024 6:52 AM Procedure End time: 04/14/2024 7:09 AM Patient location during procedure: pre-op Timeout Performed Pre-procedure: timeout performed Consent Obtained: Yes Patient identity confirmed: arm band and patient Reason for block: post-op pain management/at surgeon's request Staffing Anesthesiologist: Desean Solitario MD Resident: Misael Valverde MD Performed by: anesthesiologist and resident Preparation Sterility Preparation: hand hygiene performed prior to procedure, sterile gloves, drapes, and procedure tray, surgical cap used, mask used, sterile drape used during line insertion, skin prep agent completely dried prior to procedure Sterility Technique Not Completely Performed Due to Extreme Emergency: No Site Prep: Chloraprep Pre-Procedure Neuro Exam Location: LUE Sensory: intact Motor: pre-existing condition Procedure Details Patient Position: supine Monitoring: Pulse OX, EKG and NIBP Block Type Upper Extremity: brachial plexus (Interscalene) Approach: interscalene Laterality: left Injection Technique: catheter Ultrasound Guided: Yes Image in Chart: yes Moderate Sedation: Yes Local Infiltration: Yes Needle Needle Type: Tuohy Needle Gauge: 17 G Needle Length: 110 mm Needle Localization: ultrasound and anatomical landmarks Catheter Type: open end Catheter Size: 19 GNo Test Dose Response: negative test dose Assessment Injection assessment: negative aspiration, no paresthesia on injection, incremental injection and local visualized surrounding nerve on ultrasound Post-Procedure Neuro Exam Expected Regional Anesthesia: Yes Medications Administered bupivacaine (PF) 0.25 % (2.5 mg/mL) injection (SENSORCAINE MPF) - peripheral nerve block 10 mL - 04/14/2024 6:52:00 AM Comments Patient is confirmed by two identifiers, the Risks, benefits and alternatives of the regional anesthesia procedure were explained and confirmed with the patient who agrees to proceed. Standard ASA monitors were applied according to the procedure protocol. Vital signs were stable throughout the procedure, and the patient was communicating. No pain on injection and the procedure was well tolerated. The post- procedure diagnosis is the same as pre- procedure. No significant findings. No Complications unless noted above. No specimen collected. Minimal or no blood loss Discharge/transfer criteria are met upon discharge. SIGNATURE: Misael Walters MD PATIENT NAME: Carolina Gutierrez DATE: April 14, 2024 TIME: 8:42 AM CSN: [id number]10-09-2024 Telephone encounter Note* Telephone Encounter - Lanny Pérez RN - 04/08/2024 10:13 AM EDT Pt called office stating on antibiotics for saliva gland inflammation Pt states no infection per dentist. Pt put on Clindaymcin 300mg for one week-per Dr. Elayne oro to proceed. Pt updated, willcall with any further symptoms or concerns, direct office number provided. [facility]10-09-2024 Miscellaneous Notes* Telephone Encounter - Lanny Pérez RN - 04/08/2024 10:13 AM EDT Pt called office stating on antibiotics for saliva gland inflammation Pt states no infection per dentist. Pt put on Clindaymcin 300mg for one week-per Dr. Elayne oro to proceed. Pt updated, willcall with any further symptoms or concerns, direct office number provided. documented in this encounterUniversity [facility]10-04-2024 Telephone encounter Note * Telephone Encounter - Steve Gambino PA - 04/03/2024 10:54 AM EDT Our plan for is for a two-stage revision left total shoulder arthroplasty. The current surgery scheduled for April 14 is stage I of removal of her current implant and placement of an antibiotic spacer with 6 weeks of IV antibiotics through a PICC line followed by infectious disease team. Once we are confident that the suspected infection is eradicated, then we we will plan for the second stage of the surgery which would be a reimplantation of the reverse total shoulder arthroplasty. [facility] Work Phone: 1(790) 195-257410-04-2024 Miscellaneous Notes* Telephone Encounter - Steve Gambino PA - 04/03/2024 10:54 AM EDT Our plan for is for a two-stage revision left total shoulder arthroplasty. The current surgery scheduled for April 14 is stage I of removal of her current implant and placement of an antibiotic spacer with 6 weeks of IV antibiotics through a PICC line followed by infectious disease team. Once we are confident that the suspected infection is eradicated, then we we will plan for the second stage of the surgery which would be a reimplantation of the reverse total shoulder arthroplasty. * Telephone Encounter - Steve Gambino PA - 04/01/2024 3:52 PM EDT Insurance Name [employer] Patient's Insurance Case# [id number] Ordering Provider John Holly [employer] [id number] - REVISION JOINT TOTAL SHOULDER Our goal is to proceed with a two-stage revision with the for stage being removal of the current total shoulder arthroplasty and placement of antibiotic spacer. With hopeful revision surgery coming in 3 months. Possible code - PROSTHESIS REMOVAL HUMERAL AND GLENOID COMPONENT [46231 (CPT )] Peer to peer conducted [place] [address] is denied as that is for shoulder replacement, and our current plan is to do a two-stage revision surgery where the first stage is removing her current implant and implementing a antibiotic spacer to fight the suspected infection as well with treatment with infectious disease and likely a 6 weeks of antibiotics through PICC line. Once we are confident that the infection is eradicated we would then start planning for stage II of reimplementation of a reverse total shoulder. Due to the submitted code and our plan not adding up the current case is denied but it was recommended to resubmit with the appropriate codes and an outline of our plan. documented in this encounterUniversity [facility]als [facility]10-02-2024 Telephone encounter Note * Telephone Encounter - Steve Gambino PA - 04/01/2024 3:52 PM EDT Insurance Name Rosita Patient's Insurance Case# [id number] Ordering Provider John Holly [employer] [id number] - REVISION JOINT TOTAL SHOULDER Our goal is to proceed with a two-stage revision with the for stage being removal of the current total shoulder arthroplasty and placement of antibiotic spacer. With hopeful revision surgery coming in 3 months. Possible code - PROSTHESIS REMOVAL HUMERAL AND GLENOID COMPONENT [38055 (CPT )] Peer [place] [address] is denied as that is for shoulder replacement, and our current plan is to do a two-stage revision surgery where the first stage is removing her current implant and implementing a antibiotic spacer to fight the suspected infection as well with treatment with infectious disease and likely a 6 weeks of antibiotics through PICC line. Once we are confident that the infection is eradicated we would then start planning for stage II of reimplementation of a reverse total shoulder. Due to the submitted code and our plan not adding up the current case is denied but it was recommended to resubmit with the appropriate codes and an outline of our plan. [facility]09-30-2024 Instructions* Patient Instructions* Serge Ty PA-C - 03/30/2024 3:37 PM EDT PATIENT PREOPERATIVE INSTRUCTIONS [facility] Scheduling Office: [phone] --[address] [place] [address]. Please read below carefully for your personalized instructions. Arrival Time for Surgery: - To obtain your arrival time for surgery, call your physician's office the day before your surgery. - If your surgery is scheduled for Saturday, call the Saturday before. Your surgeon s employment coach will tell you what time to call the office. - If you have not reached the departmental employment coach by 5 P.M., call [phone] after 5 P.M. the day before your surgery. Dietary Restrictions: - No solid food after midnight. - You may have 12 ounces of clear liquids (water, clear juices such as apple juice or gatorade, carbonated beverages, clear tea, black coffee, jello) until 2 hours before scheduled arrival at facility. Medications: Unless instructed differently below, stay on all of your medications until your surgery. If you start any new medications after today's visit, please contact your surgeon. Pre-Surgery Med Instructions Medication Instructions furosemide (LASIX) 20 mg tablet Do not take the day of surgery metoprolol succinate ER (TOPROL XL) 100 mg Take the day of surgery with a small sip of water potassium chloride ER (KLOR-CON) 20 mEq tablet Do not take the day of surgery tiotropium bromide (SPIRIVA WITH HANDIHALER INHALATION) Use inhaler day of surgery. montelukast sodium (SINGULAIR ORAL) Take the day of surgery with a small sip of water semaglutide (OZEMPIC) 2 mg/dose (8 mg/3 mL) pen injector Stop 7 days before surgery - do not take 04/11/2024. ondansetron orally disintegrating (ZOFRAN ODT) 4 mg disintegrating tablet Do not take the day of surgery RINVOQ 15 mg tablet Hold for 1 week prior to surgery per Dr. Neff. celecoxib (CELEBREX) 200 mg capsule Stop 7 days before surgery levothyroxine (SYNTHROID) 75 mcg tablet Take the day of surgery with a small sip of water LANSOPRAZOLE 30 mg capsule Take the day of surgery with a small sip of water fluticasone (FLONASE) 50 mcg/actuation nasal spray Do not take the day of surgery ADVAIR 250/50 DISKUS Use inhaler day of surgery. Blood Thinning Medications: - Stop NSAIDS (Ibuprofen, Advil, Aleve, Motrin, Celebrex, Mobic, etc.) 7 days before surgery, as directed by your surgeon. - Stop Aspirin 7 days before surgery, as directed by your surgeon. - Stop Vitamin E, ALL multi-vitamins, herbals and dietary supplements 7 days before surgery. - You may take Tylenol (Acetaminophen) or any of your pain medications that do not contain aspirin or NSAIDS as needed. Important Reminders: - If you use CPAP/BIPAP, bring the machine with you to the surgery center. - If you are prescribed inhalers for breathing, continue using them. - Candy, mints, and tobacco products are NOT permitted the morning of surgery. - Hearing aids, dentures and glasses may be worn the morning of surgery. - NO jewelry, body piercings, makeup, hairpins or contacts are to be worn the day of surgery. If you develop symptoms such as a fever, cold, or flu, or have other changes to your health within TWO DAYS of scheduled surgery or the morning of surgery, please contact the surgery center above. Personal Belongings: -Please have photo ID and insurance cards. -If you do not have a copy of advance directives on file with us, please bring a copy with you on the day of surgery. - Leave ALL valuables and money at home or with family members. For Outpatient Procedures: - YOU MUST HAVE A RESPONSIBLE MARKETING ADMINISTRATIVE ASSISTANT TAKE YOU HOME. A HEATING WORKER OR LABORATORY AIDE CANNOT BE MADE A RESPONSIBLE MARKETING ADMINISTRATIVE ASSISTANT. - We recommend that a responsible person stays with you overnight to take care of you. - You cannot stay in a hotel alone after outpatient surgery. You will not be permitted to have yoursurgery, if you do not have someone to take care of you. Please be aware that emergency situations arise, which may delay or change your surgical time. If this happens, we will notify you as soon as possible and regret any inconvenience. If you already have an Advance Directive, please fax a copy to [phone] or email to for it to be added to your chart. If you do not have an Advance Directive, you can find the appropriate form and more information at [email or web address]. We recommend that youcomplete the Advance Directive form found on the website and bring it with you the day of your surgery. It can be witnessed and scanned into your chart that day. documented in this encounterUniversity Hospitals [facility] Medical Center09-30-2024 History and physical note * Serge Ty PA-C - 03/30/2024 3:10 PM EDT Images from the original note were not included. [facility] Pre-Anesthesia Consultation [facility] HISTORY AND PHYSICAL EXAMINATION SERVICE DATE: 03/30/2024 SERVICE TIME: 3:33 PM PRIMARY CARE PHYSICIAN: Berry Beth, STERILE PRODUCTS PROCESSOR, DOG LICENSER, STERILE PRODUCTS PROCESSOR.DOG LICENSER Assessment Patient has the following medical conditions which may affect merary-operative course: PONV (postoperative nausea and vomiting) Assessment: Pt reports PONV with previous surgeries/procedures. Asthma without status asthmaticus Assessment: Stable, well controlled on Singulair BID, Advair and Spiriva. Pt reports that she uses albuterol rarely. Follows with outside allergy Dr. Hernandez [facility] 03/25/[address] Del Rio [facility] 02/04/24. Lungs CTAB, SpO2 97% on RA. Hyperlipidemia Assessment: No RX currently. Monitored by PCP. Elevated blood pressure reading in office with white coat syndrome, without diagnosis of hypertension Assessment: BP today 119/74. Pt was recently started on metoprolol for IST per outside cardiology. Inappropriate sinus tachycardia (HCC) Assessment: Stable, on metoprolol. Follows with outside cardiology at [facility] 03/23/24 Oswald Curry PA-C. Pt reports that she was previously having SOB when walking. Pt reports SOB has resolved since starting metoprolol. RRR on exam today. History of pulmonary embolism Assessment: 2019, following COVID. Pt was treated with Xarelto x 1 year. No recurrence and no AC currently. GERD (gastroesophageal reflux disease) Assessment: Stable, sx managed on lansoprazole. 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 Diabetes (HCC) Assessment: Controlled on Ozempic (on Saturdays). Monitors BG at home. FBS 95 per pt. A1C 5.6% 11/2023. A1C pending. Pt instructed to hold Ozempic within 1 week of surgery, pt verbalized understanding. Leg swelling Assessment: Ongoing BLE edema since hospitalizations in November and December. On Lasix, which is helping. Pt reports that edema is worse today d/t doing a lot of driving today to appointments (pt drove overan hour and a half to get to her [facility] appointment today). Rheumatoid arthritis of multiple sites without rheumatoid factor (HCC) Assessment: Stable, on Rinvoq and Celebrex. Follows with [facility] rheumatology, Dr. Neff. Pt was instructed by Dr. Neff to hold Rinvoq and Celebrex for 1 week prior to surgery, and restart Rinvoq 1-2 weeks post-op if stable, free of infection and off abx. Pt aware of instructions. Pitt Activity Status Index: METS: Climb a flight of stairs or walk up a hill (5.50 METs) DASI Score: 5.5 Patient denies any chest pain or undue shortness of breath with the above physical activity. Clinical Frailty Scale: 3. Well, with treated comorbid disease STOP-Bang Score: Often feels tired, fatigued, or sleepy during the daytime Has or is being treated for high blood pressure BMI greater than 35 kg/m^2 Patient over 50 years old Has a large neck Denies snoring loudly Has not been observed to stop breathing or choking/gasping during sleep Non-male patient STOP-Bang Score: 5 [id number] Score: Age: <65 Sex: female CHF history: No Hypertension history: Yes Stroke/TIA/thromboembolism history: Yes Vascular disease history: No Diabetes history: Yes [id number] Score: 5 ANESTHESIA FINDINGS: Intubation History: No history of difficult intubation. No abnormal airway history Significant Anesthesia Considerations: potential postop nausea/vomiting Airway History: No history of difficult airway No abnormal airway history I - PHYSICAL EVALUATION AIRWAY Patient intubated: No. Tracheostomy tube not present Mallampati: III. TM distance: <3 FB. Neck ROM: full ROM without neurological symptoms. Mouth opening: non-adequate. Short neck: yes. Additional comments: Small mouth opening - pt reports pain with mouth opening 2/2 recent extractions (upper and lower - right side). Thick neck: yes Lip Bite Test: II Microretrognathia/Micronagthia/Recessed Chin: No DENTAL Dental findings: teeth intact. Additional comments: +Recent extractions x 2 - last week. II - ANESTHESIA PLAN Anesthetic Plan: other Anesthetic plan additional comments: *PACC/TCI - anesthesia choice. Beta Greg Monitoring Plan Post Procedure Analgesic Plan Prepared for Surgery: optimally prepared for surgery, pending [see comment]. LABS. CONSULTS: Patient does not require consults for optimization at this time Planned Anesthetic: other anesthesia choice Pre-op Rinvoq Recommendations - CARY 12/26/23 Stevo Neff MD 12/26/23 7:09 PM Note Please Call patient and notify surgery team. Notified of upcoming surgery/procedure. Please Hold rinvoq and celebrex 1week prior to surgery. Ok to continue daily rinvoq while on bacitracin. May resume rinvoq 1-2weeks after surgery if stable, infection free & off antibiotics and ok with surgeon. Goodluck on surgery and Best wishes on a speedy recovery! Thank you The Following Tests/Procedures Have Been Initiated: Orders placed by surgeon/surgical service in [facility]. Orders Placed This Encounter Hemoglobin A1C Standing Status: Future Standing Expiration Date: 06/29/2024 Pt has RX for mupirocin at home from previous [facility] appointment in November 2023. Re- educated pt on use. REASON FOR VISIT: Carolina Gutierrez is a 63 year old female who is scheduled for Procedure(s): REVISION JOINT TOTAL SHOULDER (Left) at the request of Dr. John Holly for consultation. My final recommendation will be communicated back to the requesting physician by way of shared medical record or letter. 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 Bilateral Wrist Pain Bilateral Hand Pain Family History of Gout Secondary Osteoarthritis of Multiple Sites Family History of Rheumatoid Arthritis Aileen Positive Rheumatoid Arthritis of Multiple Sites Without Rheumatoid Factor (Hcc) Postmenopausal Osteoporosis of Multiple Sites Long-Term Use of High-Risk Medication Cyclic Citrullinated Peptide (Ccp) Antibody Positive Rheumatoid Factor Positive Encounter for Long-Term (Current) Use of Nsaids Vitamin D Deficiency Personal History of Other Medical Treatment Bilateral Chronic Knee Pain Nausea Failed Orthopedic Implant (Hcc) S/P Reverse Total Shoulder Arthroplasty, Left Loose Orthopedic Implant (Hcc) Gerd (Gastroesophageal Reflux Disease) History of Pulmonary Embolism Diabetes (Hcc) Anemia Asthma Without Status Asthmaticus Primary Basal Cell Carcinoma (Bcc) of Right Breast Ponv (Postoperative Nausea and Vomiting) Elevated Blood Pressure Reading in Office With White Coat Syndrome, Without Diagnosis of Hypertension Inappropriate Sinus Tachycardia (Hcc) Leg Swelling COVID-19 Immunization Status Overdue - Covid-19 Vaccine () Overdue since 03/01/2024 07/24/2022 Imm Admin: COVID-19 original vaccine, age 6 yr - 11 yr, monovalent (MODERNA) 11/17/2021 Imm Admin: COVID-19 original vaccine, age 12+ yr, monovalent (PFIZER- BIONTECH - DUPONT TOP) 06/09/2021 Imm Admin: COVID-19 original vaccine, age 12+ yr, monovalent (PFIZER- BIONTECH - PURPLE TOP) Only the first 3 history entries have been loaded, but more history exists. CHIEF COMPLAINT: left shoulder pain HPI: Carolina Gutierrez is a 63 year old female presenting for pre-anesthesia consultation. Pt has history of left shoulder pain. She is s/p left reverse total shoulder in 05/2023. Pain limits activity. Above procedure recommended to manage symptoms. Procedure scheduled on 04/14/2024 at . Of note, patient arrived 20 minutes late to her [facility] appointment today. REVIEW OF SYSTEMS: General: No weight loss, malaise or fevers. Neurological: No history of TIA's, stroke, CAN MARKER tumor, impaired sensorium, hemiplegia, paraplegia orquadraplegia. No neurological symptoms or problems. Respiratory: Positive for: asthma (on Singulair, Advair, Spiriva, albuterol PRN (rare use), follows with outsideallergy Dr. Hernandez [facility] 03/25/[address] Del Rio JUL[facility] 02/04/24). Negative for: bronchitis, COPD, current cough, home oxygen, pneumonia within 6 weeks, tobacco use, URI < 2 weeks and obstructive sleep apnea. Cardiovascular: +IST - on metoprolol, follows with outside cardiology at [facility], [facility] 03/23/24 Oswald Curry PA-C, doing well on BB Positive for: DVT/PE (h/o PE 2019 following COVID, was treated with Xarelto x 1 year), hyperlipidemia and hypertension Negative for: AICD/PPM, arrhythmia, atrial fibrillation, CHF, recent [place], murmur/valvular heart disease, PTCA, open heart surgery and valve surgery. GI: Positive for: GERD Negative for: hepatitis, irritable bowel syndrome, inflammatory bowel disease, liver disease and ETOH >2 drinks/day. : No history of dysuria, frequency or incontinence, stones or chronic kidney disease. No difficulty urinating, nocturia > 1 time per night or hematuria. Endocrine: Positive for: diabetes mellitus (A1C 5.6% 11/2023, FBS 95) and hypothyroidism. Patient's diabetes mellitus is controlled by Ozempic (Saturdays). Negative for: steroid for chronic problem. Hematology: No history of bleeding or clotting disorder. Patient is not taking anti-coagulation or platelet medications. No history of hematological symptoms or problems. Oncology: +H/o SCC of right breast - 2023, s/p excision Psych: No history of psychiatric symptoms or problems. Musculoskeletal: See HPI. Positive for: swelling (BLE - on Lasix) and rheumatoid arthritis (Rinvoq). Patient's rheumatologistis Dr. Neff. Skin: +Abrasion on left skin - pt scratched herself with her nail ~2 weeks ago Negative for: itching and rash. 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 PAST SURGICAL HISTORY OF hysterectomy PAST SURGICAL HISTORY OF Right 1989 tibialis anterior tendon PAST SURGICAL HISTORY OF 2014 straightening pronated feet PAST SURGICAL HISTORY OF Right 2021 total knee right PAST SURGICAL HISTORY OF Left 05/2023 total reverse shoulder REMOVAL GALLBLADDER REMV CATARACT EXTRACAP,INSERT LENS Bilateral S ANTERIOR TIBIALIS TENDON TONSILLECTOMY & ADENOIDECTOMY FAMILY HISTORY Problem Relation Age of Onset Cancer Mother Cerebral Embolism Father CVA, aneurysm, [place], other (normal [Other]) Sister None Sister None Sister Breast Cancer No Family History no known family h/o breast or ovarian cancer Anesthesia Problems No Family History Social History Tobacco Use Smoking status: Never Smokeless tobacco: Never Vaping Use Vaping status: Never Used Substance Use Topics Alcohol use: Yes Comment: week-ends Drug use: No Prior to Admission medications as of 03/30/24 0832 Medication Sig Last Dose Taking L.acidophilus-L.rhamnosus (PROBIOTIC) 15 billion cell capsule Take 1 capsule by mouth once daily. Align Taking Yes furosemide (LASIX) 20 mg tablet Take 20 mg by mouth once daily. Taking Yes metoprolol succinate ER (TOPROL XL) 100 mg Take 50 mg by mouth once daily. Taking Differently Yes potassium chloride ER (KLOR-CON) 20 mEq tablet Take 20 mEq by mouth two times a day. Taking Yes tiotropium bromide (SPIRIVA WITH HANDIHALER INHALATION) Inhale 1 Puff as instructed once daily. Taking Yes montelukast sodium (SINGULAIR ORAL) Take 10 mg by mouth two times a day. Taking Yes semaglutide (OZEMPIC) 2 mg/dose (8 mg/3 mL) pen injector Inject 2 mg subcutaneously one time a week. Taking Yes ondansetron orally disintegrating (ZOFRAN ODT) 4 mg disintegrating tablet Take 1 tablet by mouth every 8 hours as needed. Taking Yes RINVOQ 15 mg tablet TAKE 1 TABLET BY MOUTH 1 TIME A DAY. Taking Yes celecoxib (CELEBREX) 200 mg capsule TAKE 1 CAPSULE BY MOUTH TWICE A DAY Taking Yes levothyroxine (SYNTHROID) 75 mcg tablet TAKE 1.5 TABLETS ON SATURDAY, SATURDAY, SATURDAY, SATURDAY AND2 TABLETS THE OTHER 3 DAYS Patient taking differently: Take 137 mcg by mouth once daily. Taking Differently Yes LANSOPRAZOLE 30 mg capsule Take 1 capsule by mouth daily at bedtime. Taking Yes fluticasone (FLONASE) 50 mcg/actuation nasal spray 1 [place] daily at bedtime. in each nostril. Taking Yes Cholecalciferol, Vitamin D3, 1,000 unit ORAL Tab Take 1 tablet by mouth once daily. Taking Yes CITRACAL 500 MG (2,376 MG) EFFERVESCENT TAB Take one(1) tablet two(2) times daily. Taking Yes ADVAIR 250/50 DISKUS Inhale 1 Puff as instructed two times a day. Advair diskus 500/50 Taking Differently Yes EPIPEN 2-PANCHITO 0.3 mg/0.3 mL (1:1,000) atIn Not Taking No medication comments found. ALLERGIES Allergen Reactions Keflex [Cephalexin] Hives Penicillins Hives Objective PHYSICAL EXAM: General: alert and oriented and morbidly obese. Pertinent negatives noted - not distressed. Skin: Pertinent negatives noted - no ecchymosis and no erythema. Small abrasion on left clarke, non erythematous, no purulent drainage present. HEENT: EOM intact and pupils equal round. Pertinent negatives noted - no carotid bruit. Cardiovascular: regular rate and rhythm, normal S1 and S2, no rub, murmurs, or gallop. Pulse characterized as regular.No radial pulse abnormalities. Respiratory: normal breath sounds, no wheezes or crackles. Abdomen: Pertinent negatives noted - not distended. Extremities: Positive for edema (2+ pitting edema BLE\). Pertinent negatives noted - no cellulitis,no clubbing and no deformity. Neurological: normal cognition and motor skills. PAIN ASSESSMENT: Pain Pain Level: 0 Pain Location: Shoulder-Left Description: Aching Duration Units: Months Frequency: Intermittent VITALS: BP 119/74 Pulse 76 Temp (Src) 98 (Oral) Resp 16 Ht 4' 8 (1.42m) Wt 188 lb 11.2 oz (85.6kg) SpO2 97% BMI 42.33 kg/(m^2). Diagnostic tests reviewed for today's visit: Lab Value Units Date High Low HB 13.1 g/dL 12/25/2023 15.5 11.5 HCT 41.3 % 12/25/2023 46.0 36.0 WBC 8.29 k/uL 12/25/2023 11.00 3.70 PLT 299 k/uL 12/25/2023 400 150 NA 140 mmol/L 12/25/2023 144 136 K 4.1 mmol/L 12/25/2023 5.1 3.7 GLUC 122 mg/dL 12/25/2023 99 74 BUN 12 mg/dL 12/25/2023 21 7 CREAT 0.58 mg/dL 12/25/2023 0.96 0.58 PTSEC No results within date range. INR No results within date range. APTT No results within date range. ALT No results within date range. AST No results within date range. TBILI No results within date range. TSH No results within date range. Lab Value Units Date High Low HCGQT No results within date range. UHCG No results within date range. HCG, BODY* No results within date range. Lab Value Units Date High Low ABORHD No results within date range. ABSCREEN No results within date range. Hemoglobin A1C (%) Date Value 12/20/2023 5.6 Holter monitor 03/05/2024 (Care Everywhere) 1. predominant rhythm was sinus rhythm/sinus tachycardia 2. Minimum heart rate 71 bpm, average heart rate 105 bpm, max heart rate 138 bpm 3. No secondary arrhythmia detected. 4. Total SVE's: 215 times (0.07%) including trigeminy, runs 3 of 4 beats with heart rate 252 bpm 5. Total VE's: 1639 times (0.55%) including couplets, trigeminy TTE 01/06/24 (Care Everywhere) Interpretation Summary: Ejection Fraction = 60-65%. Normal LV and RV. No significant valve disease. Normal estimated PA pressure. Impaired diastolic relaxation. Recent Results (from the past 8760 hour(s)) ECG COMPLETE Collection Time: 12/20/23 9:19 AM Result Value Ventricular Rate 74 Atrial Rate 74 P-R Interval 158 QRS Duration 94 QT Interval 382 QTC Calculation (Bazett) 424 Calculated P Clinton 46 Calculated R Clinton 2 Calculated T Clinton 102 Impression NORMAL SINUS RHYTHM POSSIBLE LEFT ATRIAL ENLARGEMENT NONSPECIFIC T WAVE ABNORMALITY ABNORMAL ECG Confirmed by MD GRANT, [facility] ([id number]) on 12/22/2023 10:02:40 PM Instructions Given to Patient: Instructions located in the after visit summary. Patient given verbal and written preop instructions and voices comprehension and compliance. SIGNATURE: Serge Ty PA-C PATIENT NAME: Carolina Gutierrez DATE: 03/30/2024 TIME: 3:33 PM PAGER/CONTACT #: [email or web address] History and physical note* Serge Ty PA-C - 03/30/2024 3:10 PM EDT Images from the original note were not included. [facility] HISTORY AND PHYSICAL EXAMINATION SERVICE DATE: 03/30/2024 SERVICE TIME: 3:33 PM PRIMARY CARE PHYSICIAN: Berry Beth, STERILE PRODUCTS PROCESSOR, DOG LICENSER, STERILE PRODUCTS PROCESSOR.DOG LICENSER Assessment Patient has the following medical conditions which may affect merary-operative course: PONV (postoperative nausea and vomiting) Assessment: Pt reports PONV with previous surgeries/procedures. Asthma without status asthmaticus Assessment: Stable, well controlled on Singulair BID, Advair and Spiriva. Pt reports that she uses albuterol rarely. Follows with outside allergy Dr. Hernandez [facility] 03/25/[address] Del Rio [facility] 02/04/24. Lungs CTAB, SpO2 97% on RA. Hyperlipidemia Assessment: No RX currently. Monitored by PCP. Elevated blood pressure reading in office with white coat syndrome, without diagnosis of hypertension Assessment: BP today 119/74. Pt was recently started on metoprolol for IST per outside cardiology. Inappropriate sinus tachycardia (HCC) Assessment: Stable, on metoprolol. Follows with outside cardiology at [facility] 03/23/24 Oswald Curry PA-C. Pt reports that she was previously having SOB when walking. Pt reports SOB has resolved since starting metoprolol. RRR on exam today. History of pulmonary embolism Assessment: 2019, following COVID. Pt was treated with Xarelto x 1 year. No recurrence and no AC currently. GERD (gastroesophageal reflux disease) Assessment: Stable, sx managed on lansoprazole. 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 Diabetes (HCC) Assessment: Controlled on Ozempic (on Saturdays). Monitors BG at home. FBS 95 per pt. A1C 5.6% 11/2023. A1C pending. Pt instructed to hold Ozempic within 1 week of surgery, pt verbalized understanding. Leg swelling Assessment: Ongoing BLE edema since hospitalizations in November and December. On Lasix, which is helping. Pt reports that edema is worse today d/t doing a lot of driving today to appointments (pt drove overan hour and a half to get to her [facility] appointment today). Rheumatoid arthritis of multiple sites without rheumatoid factor (HCC) Assessment: Stable, on Rinvoq and Celebrex. Follows with [facility] rheumatology, Dr. Neff. Pt was instructed by Dr. Neff to hold Rinvoq and Celebrex for 1 week prior to surgery, and restart Rinvoq 1-2 weeks post-op if stable, free of infection and off abx. Pt aware of instructions. [place] Activity Status Index: METS: Climb a flight of stairs or walk up a hill (5.50 METs) DASI Score: 5.5 Patient denies any chest pain or undue shortness of breath with the above physical activity. Clinical Frailty Scale: 3. Well, with treated comorbid disease STOP-Bang Score: Often feels tired, fatigued, or sleepy during the daytime Has or is being treated for high blood pressure BMI greater than 35 kg/m^2 Patient over 50 years old Has a large neck Denies snoring loudly Has not been observed to stop breathing or choking/gasping during sleep Non-male patient STOP-Bang Score: 5 [id number] Score: Age: <65 Sex: female CHF history: No Hypertension history: Yes Stroke/TIA/thromboembolism history: Yes Vascular disease history: No Diabetes history: Yes [id number] Score: 5 ANESTHESIA FINDINGS: Intubation History: No history of difficult intubation. No abnormal airway history Significant Anesthesia Considerations: potential postop nausea/vomiting Airway History: No history of difficult airway No abnormal airway history I - PHYSICAL EVALUATION AIRWAY Patient intubated: No. Tracheostomy tube not present Mallampati: III. TM distance: <3 FB. Neck ROM: full ROM without neurological symptoms. Mouth opening: non-adequate. Short neck: yes. Additional comments: Small mouth opening - pt reports pain with mouth opening 2/2 recent extractions (upper and lower - right side). Thick neck: yes Lip Bite Test: II Microretrognathia/Micronagthia/Recessed Chin: No DENTAL Dental findings: teeth intact. Additional comments: +Recent extractions x 2 - last week. II - ANESTHESIA PLAN Anesthetic Plan: other Anesthetic plan additional comments: *PACC/TCI - anesthesia choice. Beta Greg Monitoring Plan Post Procedure Analgesic Plan Prepared for Surgery: optimally prepared for surgery, pending [see comment]. LABS. CONSULTS: Patient does not require consults for optimization at this time Planned Anesthetic: other anesthesia choice Pre-op Rinvoq Recommendations - TE 6/27/24 Stevo Neff MD 12/26/23 7:09 PM Note Please Call patient and notify surgery team. Notified of upcoming surgery/procedure. Please Hold rinvoq and celebrex 1week prior to surgery. Ok to continue daily rinvoq while on bacitracin. May resume rinvoq 1-2weeks after surgery if stable, infection free & off antibiotics and ok with surgeon. Goodluck on surgery and Best wishes on a speedy recovery! Thank you The Following Tests/Procedures Have Been Initiated: Orders placed by surgeon/surgical service in [facility]. Orders Placed This Encounter Hemoglobin A1C Standing Status: Future Standing Expiration Date: 06/29/2024 Pt has RX for mupirocin at home from previous [facility] appointment in November 2023. Re- educated pt on use. REASON FOR VISIT: Carolina Gutierrez is a 63 year old female who is scheduled for Procedure(s): REVISION JOINT TOTAL SHOULDER (Left) at the request of Dr. John Holly for consultation. My final recommendation will be communicated back to the requesting physician by way of shared medical record or letter. 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 Bilateral Wrist Pain Bilateral Hand Pain Family History of Gout Secondary Osteoarthritis of Multiple Sites Family History of Rheumatoid Arthritis Aileen Positive Rheumatoid Arthritis of Multiple Sites Without Rheumatoid Factor (Hcc) Postmenopausal Osteoporosis of Multiple Sites Long-Term Use of High-Risk Medication Cyclic Citrullinated Peptide (Ccp) Antibody Positive Rheumatoid Factor Positive Encounter for Long-Term (Current) Use of Nsaids Vitamin D Deficiency Personal History of Other Medical Treatment Bilateral Chronic Knee Pain Nausea Failed Orthopedic Implant (Hcc) S/P Reverse Total Shoulder Arthroplasty, Left Loose Orthopedic Implant (Hcc) Gerd (Gastroesophageal Reflux Disease) History of Pulmonary Embolism Diabetes (Hcc) Anemia Asthma Without Status Asthmaticus Primary Basal Cell Carcinoma (Bcc) of Right Breast Ponv (Postoperative Nausea and Vomiting) Elevated Blood Pressure Reading in Office With White Coat Syndrome, Without Diagnosis of Hypertension Inappropriate Sinus Tachycardia (Hcc) Leg Swelling COVID-19 Immunization Status Overdue - Covid-19 Vaccine () Overdue since 03/01/2024 07/24/2022 Imm Admin: COVID-19 original vaccine, age 6 yr - 11 yr, monovalent (MODERNA) 11/17/2021 Imm Admin: COVID-19 original vaccine, age 12+ yr, monovalent (PFIZER- BIONTECH - DUPONT TOP) 06/09/2021 Imm Admin: COVID-19 original vaccine, age 12+ yr, monovalent (PFIZER- BIONTECH - PURPLE TOP) Only the first 3 history entries have been loaded, but more history exists. CHIEF COMPLAINT: left shoulder pain HPI: Carolina Gutierrez is a 63 year old female presenting for pre-anesthesia consultation. Pt has history of left shoulder pain. She is s/p left reverse total shoulder in 05/2023. Pain limits activity. Above procedure recommended to manage symptoms. Procedure scheduled on 04/14/2024 at . Of note, patient arrived 20 minutes late to her [facility] appointment today. REVIEW OF SYSTEMS: General: No weight loss, malaise or fevers. Neurological: No history of TIA's, stroke, CAN MARKER tumor, impaired sensorium, hemiplegia, paraplegia orquadraplegia. No neurological symptoms or problems. Respiratory: Positive for: asthma (on Singulair, Advair, Spiriva, albuterol PRN (rare use), follows with outsideallergy Dr. Hernandez [facility] 03/25/[address] Del Rio [facility] 02/04/24). Negative for: bronchitis, COPD, current cough, home oxygen, pneumonia within 6 weeks, tobacco use, URI < 2 weeks and obstructive sleep apnea. Cardiovascular: +IST - on metoprolol, follows with outside cardiology at [facility], [facility] 03/23/24 Oswald Curry PA-C, doing well on BB Positive for: DVT/PE (h/o PE 2019 following COVID, was treated with Xarelto x 1 year), hyperlipidemia and hypertension Negative for: AICD/PPM, arrhythmia, atrial fibrillation, CHF, recent [place], murmur/valvular heart disease, PTCA, open heart surgery and valve surgery. GI: Positive for: GERD Negative for: hepatitis, irritable bowel syndrome, inflammatory bowel disease, liver disease and ETOH >2 drinks/day. : No history of dysuria, frequency or incontinence, stones or chronic kidney disease. No difficulty urinating, nocturia > 1 time per night or hematuria. Endocrine: Positive for: diabetes mellitus (A1C 5.6% 11/2023, FBS 95) and hypothyroidism. Patient's diabetes mellitus is controlled by Ozempic (Saturdays). Negative for: steroid for chronic problem. Hematology: No history of bleeding or clotting disorder. Patient is not taking anti-coagulation or platelet medications. No history of hematological symptoms or problems. Oncology: +H/o SCC of right breast - 2023, s/p excision Psych: No history of psychiatric symptoms or problems. Musculoskeletal: See HPI. Positive for: swelling (BLE - on Lasix) and rheumatoid arthritis (Rinvoq). Patient's rheumatologistis Dr. Neff. Skin: +Abrasion on left skin - pt scratched herself with her nail ~2 weeks ago Negative for: itching and rash. 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 PAST SURGICAL HISTORY OF hysterectomy PAST SURGICAL HISTORY OF Right 1989 tibialis anterior tendon PAST SURGICAL HISTORY OF 2014 straightening pronated feet PAST SURGICAL HISTORY OF Right 2021 total knee right PAST SURGICAL HISTORY OF Left 05/2023 total reverse shoulder REMOVAL GALLBLADDER REMV CATARACT EXTRACAP,INSERT LENS Bilateral S ANTERIOR TIBIALIS TENDON TONSILLECTOMY & ADENOIDECTOMY <AGE 11 FAMILY HISTORY Problem Relation Age of Onset Cancer Mother Cerebral Embolism Father CVA, aneurysm, [place], other (normal [Other]) Sister None Sister None Sister Breast Cancer No Family History no known family h/o breast or ovarian cancer Anesthesia Problems No Family History Social History Tobacco Use Smoking status: Never Smokeless tobacco: Never Vaping Use Vaping status: Never Used Substance Use Topics Alcohol use: Yes Comment: week-ends Drug use: No Prior to Admission medications as of 03/30/24 1552 Medication Sig Last Dose Taking L.acidophilus-L.rhamnosus (PROBIOTIC) 15 billion cell capsule Take 1 capsule by mouth once daily. Align Taking Yes furosemide (LASIX) 20 mg tablet Take 20 mg by mouth once daily. Taking Yes metoprolol succinate ER (TOPROL XL) 100 mg Take 50 mg by mouth once daily. Taking Differently Yes potassium chloride ER (KLOR-CON) 20 mEq tablet Take 20 mEq by mouth two times a day. Taking Yes tiotropium bromide (SPIRIVA WITH HANDIHALER INHALATION) Inhale 1 Puff as instructed once daily. Taking Yes montelukast sodium (SINGULAIR ORAL) Take 10 mg by mouth two times a day. Taking Yes semaglutide (OZEMPIC) 2 mg/dose (8 mg/3 mL) pen injector Inject 2 mg subcutaneously one time a week. Taking Yes ondansetron orally disintegrating (ZOFRAN ODT) 4 mg disintegrating tablet Take 1 tablet by mouth every 8 hours as needed. Taking Yes RINVOQ 15 mg tablet TAKE 1 TABLET BY MOUTH 1 TIME A DAY. Taking Yes celecoxib (CELEBREX) 200 mg capsule TAKE 1 CAPSULE BY MOUTH TWICE A DAY Taking Yes levothyroxine (SYNTHROID) 75 mcg tablet TAKE 1.5 TABLETS ON SATURDAY, SATURDAY, SATURDAY, SATURDAY AND2 TABLETS THE OTHER 3 DAYS Patient taking differently: Take 137 mcg by mouth once daily. Taking Differently Yes LANSOPRAZOLE 30 mg capsule Take 1 capsule by mouth daily at bedtime. Taking Yes fluticasone (FLONASE) 50 mcg/actuation nasal spray 1 [place] daily at bedtime. in each nostril. Taking Yes Cholecalciferol, Vitamin D3, 1,000 unit ORAL Tab Take 1 tablet by mouth once daily. Taking Yes CITRACAL 500 MG (2,376 MG) EFFERVESCENT TAB Take one(1) tablet two(2) times daily. Taking Yes ADVAIR 250/50 DISKUS Inhale 1 Puff as instructed two times a day. Advair diskus 500/50 Taking Differently Yes EPIPEN 2-PANCHITO 0.3 mg/0.3 mL (1:1,000) atIn Not Taking No medication comments found. ALLERGIES Allergen Reactions Keflex [Cephalexin] Hives Penicillins Hives Objective PHYSICAL EXAM: General: alert and oriented and morbidly obese. Pertinent negatives noted - not distressed. Skin: Pertinent negatives noted - no ecchymosis and no erythema. Small abrasion on left clarke, non erythematous, no purulent drainage present. HEENT: EOM intact and pupils equal round. Pertinent negatives noted - no carotid bruit. Cardiovascular: regular rate and rhythm, normal S1 and S2, no rub, murmurs, or gallop. Pulse characterized as regular.No radial pulse abnormalities. Respiratory: normal breath sounds, no wheezes or crackles. Abdomen: Pertinent negatives noted - not distended. Extremities: Positive for edema (2+ pitting edema BLE\). Pertinent negatives noted - no cellulitis,no clubbing and no deformity. Neurological: normal cognition and motor skills. PAIN ASSESSMENT: Pain Pain Level: 0 Pain Location: Shoulder-Left Description: Aching Duration Units: Months Frequency: Intermittent VITALS: BP 119/74 Pulse 76 Temp (Src) 98 (Oral) Resp 16 Ht 4' 8 (1.42m) Wt 188 lb 11.2 oz (85.6kg) SpO2 97% BMI 42.33 kg/(m^2). Diagnostic tests reviewed for today's visit: Lab Value Units Date High Low HB 13.1 g/dL 12/25/2023 15.5 11.5 HCT 41.3 % 12/25/2023 46.0 36.0 WBC 8.29 k/uL 12/25/2023 11.00 3.70 PLT 299 k/uL 12/25/2023 400 150 NA 140 mmol/L 12/25/2023 144 136 K 4.1 mmol/L 12/25/2023 5.1 3.7 GLUC 122 mg/dL 12/25/2023 99 74 BUN 12 mg/dL 12/25/2023 21 7 CREAT 0.58 mg/dL 12/25/2023 0.96 0.58 PTSEC No results within date range. INR No results within date range. APTT No results within date range. ALT No results within date range. AST No results within date range. TBILI No results within date range. TSH No results within date range. Lab Value Units Date High Low HCGQT No results within date range. UHCG No results within date range. HCG, BODY* No results within date range. Lab Value Units Date High Low ABORHD No results within date range. ABSCREEN No results within date range. Hemoglobin A1C (%) Date Value 12/20/2023 5.6 Holter monitor 03/05/2024 (Care Everywhere) 1. predominant rhythm was sinus rhythm/sinus tachycardia 2. Minimum heart rate 71 bpm, average heart rate 105 bpm, max heart rate 138 bpm 3. No secondary arrhythmia detected. 4. Total SVE's: 215 times (0.07%) including trigeminy, runs 3 of 4 beats with heart rate 252 bpm 5. Total VE's: 1639 times (0.55%) including couplets, trigeminy TTE 01/06/24 (Care Everywhere) Interpretation Summary: Ejection Fraction = 60-65%. Normal LV and RV. No significant valve disease. Normal estimated PA pressure. Impaired diastolic relaxation. Recent Results (from the past 8760 hour(s)) ECG COMPLETE Collection Time: 12/20/23 9:19 AM Result Value Ventricular Rate 74 Atrial Rate 74 P-R Interval 158 QRS Duration 94 QT Interval 382 QTC Calculation (Bazett) 424 Calculated P [place] 46 Calculated R Clinton 2 Calculated T Clinton 102 Impression NORMAL SINUS RHYTHM POSSIBLE LEFT ATRIAL ENLARGEMENT NONSPECIFIC T WAVE ABNORMALITY ABNORMAL ECG Confirmed by MD GRANT, [facility] ([id number]) on 12/22/2023 10:02:40 PM Instructions Given to Patient: Instructions located in the after visit summary. Patient given verbal and written preop instructions and voices comprehension and compliance. SIGNATURE: Serge Ty PA-C PATIENT NAME: Carolina Gutierrez DATE: 03/30/2024 TIME: 3:33 PM PAGER/CONTACT #: documented in this encounterUniversity [facility]als [facility]09-25-2024 History of Present illness Narrative* Adam Hernandez MD - 03/25/2024 3:20 PM EDT Carolina Gutierrez returns to the office today For follow-up assessment for severe persistent asthma. Aspergillus antibodies are negative. IgA is 197. IgG is 645. She has 6/23 pneumococcal sub titers in the protective range. Absolute eosinophil count is 30. She feels that he breathing has been doing welllately. She has been walking for exercise and has lost some weight as a result. She feels she can walk about one mile. Her weight is 184. Her last pneumonia vaccine in September - . EXAM The patient appears comfortable in the office today. Lungs are clear to auscultation bilaterally. The oral mucosa is pink and healthy without any lesions or ulcers. The palate elevates in the midline. The nasal mucosa is pink and healthy. There is no epistaxis mucopus or nasal polyposis noted. The nasal septum is approximately in the midline. The skin is clear of any lesions, excoriations, or erythema. IMPRESSION: severe persistent asthma - lose weight - her goal is 150 pounds. Defer biological therapy for now. Follow asthma closely over the winter. 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 The patient was instructed to have pneumo coccal sub-titers drawn in 4 weeks and then follow-up in 2 months to discuss the results or sooner should problems arise. She has received the conjugated pneumonia vaccine in the past but we do not have any record of receiving the non conjugated vaccine. This was administered to her in the office today. documented in this encounterJohn J. Pershing [facility] Medical [id number] History of Present illness Narrative* Aline Arriaza - 03/13/2024 8:15 AM EDT Images from the original note were not included. Carolina Gutierrez is a 63 y.o. female presents with chief complaint of right knee pain and swelling. Right leg irritability. HPI: Carolina is here with a few week history of pain. It is going from her buttock, down her leg. She reports a burning sensation. She thought maybe there was something wrong with her knee. She had a revision by Dr. Pendleton in years past. She thought initially she had some swelling to the knee. There is no fever or chills, no drainage. No contralateral complaints. She does have some known issues of her back. She does get Prolia for osteoporosis. There is no specific fall or trauma. SUBJECTIVE: MEDICATIONS: Current Outpatient Medications Medication Instructions albuterol HFA 90 mcg/act inhaler INHALE 2 PUFFS BY MOUTH EVERY 4 HOURS NEEDED FOR SHORTNESS OF BREATH calcium carbonate 600 mg, Oral, 2 times daily with meals celecoxib (CELEBREX) 200 mg, Oral, 2 times daily cyclobenzaprine (Flexeril) 10 MG tablet TAKE 1 TABLET BY MOUTH THREE TIMES A DAY NEEDED FOR BACKPAIN famotidine (PEPCID) 20 mg, Oral, 2 times daily fexofenadine ([place]) 60 MG tablet Every 12 hours fluticasone (Flonase) 50 MCG/ACT nasal spray 2 sprays, Each Nostril, Daily RT Fluticasone-Salmeterol (Advair Diskus) 500-50 MCG/ACT aerosol powder 1 puff(s), Inhalation, BID for30 day(s), 60 EA, Refill(s) 0 ipratropium-albuterol (Duo-Neb) 0.5-2.5 mg/3 mL nebulizer solution lansoprazole (Prevacid) [address] capsule Daily levothyroxine (SYNTHROID, LEVOXYL) 137 mcg, Oral, Daily metoprolol succinate XL (Toprol-XL) 100 MG 24 hr tablet Oral, Do not crush or chew. montelukast (SINGULAIR) 10 mg, Oral, 2 times daily Multiple Vitamin (Multi-Vitamin) tablet 1 tablet, Oral, Daily RT ondansetron ODT (ZOFRAN-ODT) 4 mg, Oral, Every 8 hours PRN Ozempic, 2 MG/DOSE, 8 MG/3ML solution pen-injector INJECT 2MG SUBCUTANEOUSLY ONCE A WEEK pantoprazole (PROTONIX) 40 mg, Oral pneumococcal conjugate 20-valent (Prevnar 20) 0.5 ML vaccine as directed Intramuscular once for 1 predniSONE (Deltasone) 20 MG tablet Take 3 tablets (60 mg) by mouth Daily for 4 days, THEN 2 tablets (40 mg) Daily for 4 days, THEN 1 tablet (20 mg) Daily for 4 days. Take with food. RSVPreF3 Vac Recomb Adjuvanted (Arexvy) 120 MCG/0.5ML reconstituted suspension as directed Intramuscular once for 1 Spiriva Respimat 1.25 MCG/ACT inhaler Every 24 hours upadacitinib ER (Rinvoq) 15 MG tablet sustained-release 24 hour Refills(s) 0 Wixela Inhub 250-50 MCG/ACT aerosol powder INHALE 1 PUFF INTO THE LUNGS TWICE A DAY FOR 90 DAYS *RINSE MOUTH AFTER USE* ALLERGIES: Allergies Allergen Reactions Apixaban Itching and Unknown Cefprozil Unknown Cephalexin Hives and Other Other Reaction(s): Hives Dabigatran Unknown Dabigatran Etexilate Mesylate Unknown Penicillin G Benzathine Other Reaction(s): Hives Penicillins Hives SURGICAL HISTORY: Past Surgical History: Procedure Laterality Date CATARACT EXTRACTION CATARACT EXTRACTION, BILATERAL 06/01/21 LT, 06/13/21 RT CHOLECYSTECTOMY FOOT SPLIT TRANSFER OF THE POSTERIOR TIBIALIS TENDON PROCEDURE Left FOOT SURGERY Left 2019 FOOT SURGERY Right 2011 KNEE SURGERY Right arthroscopy KNEE SURGERY LT uni knee 02/02/2011, RT uni knee 01/27/2010 MASS EXCISION Right 05/2014 right leg excision of mass OTHER SURGICAL HISTORY Miscarriage PARTIAL KNEE ARTHROPLASTY Left 11/01/2010 PARTIAL KNEE ARTHROPLASTY Right 01/27/2010 REVERSE TOTAL SHOULDER ARTHROPLASTY Left 05/20/2023 Dr Dunbar TONSILLECTOMY TOTAL KNEE ARTHROPLASTY Right 01/23/2022 Dr Pendleton TOTAL VAGINAL HYSTERECTOMY 1996 VAGINAL DELIVERY VAGINAL DELIVERY VAGINAL DELIVERY FAMILY HISTORY: Family History Problem Relation Name Age of Onset Cancer Mother Deep vein thrombosis Father Aneurysm Father Clotting disorder Father Heart disease Father Stroke Father Clotting disorder Paternal Grandfather Aneurysm Paternal Grandfather SOCIAL HISTORY: Social History Tobacco Use Smoking status: Never Smokeless tobacco: Never Vaping Use Vaping status: Never Used Substance Use Topics Alcohol use: Yes Alcohol/week: 2.0 standard drinks of alcohol Types: 2 Standard drinks or equivalent per week Comment: pop 2-3 cups per day Drug use: Never Depression: Not at risk (11/03/2023) Received from [facility] PHQ-2 PHQ-2 score: 0 REVIEW OF SYMPTOMS: The review of systems, history and current medications list are all reviewed today. OBJECTIVE: Visit Vitals Ht 4' 11 Wt 190 lb BMI 38.38 kg/m Smoking Status Never BSA 1.89 m Physical Exam On physical exam, the right knee incision is clean, dry and intact. She gets full extension. Flexion is to 115 degrees. Patellofemoral tracking is appropriate. There is no instability. There is no real pain through testing the knee. Her bench and straight leg raise testing is positivefor pain and radiation from her buttock into her thigh and lateral calf. Her hip exam has pain in the buttock and back area, but no groin pain or restriction. The contralateral side is stable. The calf is supple and she is neurovascularly intact distally. She does have difficulty lifting her right hip. No sign of foot drop distally. X-rays and imaging permanently saved to the patient's record were reviewed AP, lateral and sunrise views weight bearing films show revision prosthesis of the right knee to be in good position and alignment. The left medial unicompartmental knee replacement is in good position and alignment without sign of loosening or infection. ASSESSMENT AND PLAN: Assessment/Plan Right leg radiculopathy with sciatica. Remote history of revision right knee surgery. Left medial unicompartmental knee arthroplasty. The nature of the findings were discussed at length. Her knee exam is stable on both sides. She haspain, guarding or irritability of either knee. This is her sciatic nerve. She is a diabetic, but has a stable A1C. Prednisone 12 day course was prescribed to her pharmacy as she is leaving on vacation tomorrow. Side effect profile was reviewed. If she is not getting better over the next few weeks, we will consider physical therapy on her lumbar spine, further imaging and potential referral to pain management. She voices verbal understanding. She is discharged in stable condition. Numerous questions were answered. Any increasing pain, problems or issues will be reported. Follow up p.r.n.. The patient was seen and examined. From the time of check in, nurse triage, vital signs, x-ray, x-ray interpretation, review of systems, comprehensive history and physical exam as well as setting up treatment plan and further management took 35 minutes. documented in this encounterJohn J. Pershing VA Medical [id number] History of Present illness Narrative* Adam Hernandez MD - 03/11/2024 3:20 PM EDT Carolina Gutierrez returns to the office today and was hospitalized in December for pneumonia and then went back in the hospital for colitis due to the antibiotics. She still has coughing at night and has beencoughing up yellow every day. She takes antihistamines AM and PM and mucinex. She did not have the blood work because she was busy. Asthma control test today is 21. She has been using Spiriva and Advair every day. She has been trying to walk and can walk about 1/2 mile before she gets dyspnea on exertion. She has a rapid heart beat and was placed on metoprolol for this. Her CXR on admission showed Prominent central bronchovascular markings consistent with viral syndrome or reactive airway disea se. EXAM The patient appears comfortable in the office today. Lungs are clear to auscultation bilaterally. The oral mucosa is pink and healthy without any lesions or ulcers. The palate elevates in the midline. The nasal mucosa is pink and healthy. There is no epistaxis mucopus or nasal polyposis noted. The nasal septum is approximately in the midline. The skin is clear of any lesions, excoriations, or erythema. IMPRESSION: severe persistent asthma - asthma labs and follow-up in 4 weeks consider biological therapy based on labs. We will also review the results of her humoral immune survey at that time. documented in this encounterJohn J. Pershing VA Medical [id number] Telephone encounter Note* Telephone Encounter - Mary Layne LPN - 02/27/2024 1:57 PM EDT PA for Rinvoq ER submitted via Cover My Med[employer]. Perez: [id number] Your request has been approved PA Case: [id number], Status: Approved, Coverage Starts on: 02/27/2024 12:00:00 AM, Coverage Ends on: 02/26/2025 12:00:00 AM. [facility]08-29-2024 Miscellaneous Notes* Telephone Encounter - Mary Layne LPN - 02/27/2024 1:57 PM EDT PA for Rinvoq ER submitted via Cover [employer]. Perez: [id number] Your request has been approved PA Case: [id number], Status: Approved, Coverage Starts on: 02/27/2024 12:00:00 AM, Coverage Ends on: 02/26/2025 12:00:00 AM. documented in this encounterUniversity Hospitals [facility] Center08-09-2024 Telephone encounter Note * Telephone Encounter - Lanny Pérez RN - 02/07/2024 9:26 AM EDT Call placed to pt to see if pt is ready to reschedule surgery. Pt states she is doing much better and has since been cleared by her PCP and feels much better. Advised pt to reach out to PCP to make sure we dont need a visit before preop testing apt. Pt thankful for call, elective shoulder surgery now rescheduled for 04/14/24, pt provided with direct office number for any further questions or concerns. [facility]08-09-2024 Miscellaneous Notes* Telephone Encounter - Lanny Pérez RN - 02/07/2024 9:26 AM EDT Call placed to pt to see if pt is ready to reschedule surgery. Pt states she is doing much better and has since been cleared by her PCP and feels much better. Advised pt to reach out to PCP to make sure we dont need a visit before preop testing apt. Pt thankful for call, elective shoulder surgery now rescheduled for 04/14/24, pt provided with direct office number for any further questions or concerns. documented in this encounterUniversity Hospitals Cleveland [facility] Center07-30-2024 NoteMicrobiology PROCEDURE: Blood Culture Charcoal [R1] SOURCE: Blood BODY SITE: Arm L COLLECTED DATE/TIME: 01/20/2024 22:40 EDT RECEIVED DATE/TIME: 01/20/2024 23:25 EDT START DATE/TIME: 01/20/2024 23:25 EDT FREE TEXT SOURCE: Peripheral vein site #1 Shalom Toledo DO, DO, Kaylinn A FINAL REPORTS Final Report [] Verified Date/Time: 01/28/2024 00:00 EDT No growth at 7 days. Performing Locations R1: This test was performed at: [place], [address] [place] [address], [id number] , , [facility]iGood Samaritan HospitalComment on above:Performed By: #### [id number] #### [facility] [address] [place] [address] [id number] NoteMicrobiology PROCEDURE: Blood Culture Charcoal [R1] SOURCE: Blood BODY SITE: Arm R COLLECTED DATE/TIME: 01/20/2024 22:40 EDT RECEIVED DATE/TIME: 01/20/2024 23:25 EDT START DATE/TIME: 01/20/2024 23:25 EDT FREE TEXT SOURCE: Peripheral vein site #2 Tre YOST, Liamarlen Nigel Toledo DO, Shalom Manning FINAL REPORTS Final Report [] Verified Date/Time: 01/28/2024 00:00 EDT No growth at 7 days. Performing Locations R1: This test was performed at: [place], [address] [place] [address], [id number], LjehjuGood Samaritan HospitalComment on above:Performed By: #### [id number] #### [facility] [address] [place] [address] [id number] Hospital Discharge instructions Patient Education 01/27/2024 16:00:41 Shingles Shingles Shingles, which is also known as herpes zoster, is an infection that causes a painful skin rash andfluid-filled blisters. It is caused by a virus. Shingles only develops in people who: Have had chickenpox. Have been vaccinated against chickenpox. Shingles is rare in this group. What are the causes? Shingles is caused by varicella-zoster virus. This is the same virus that causes chickenpox. After a person is exposed to the virus, it stays in the body in an inactive (dormant) state. Shingles develops if the virus is reactivated. This can happen many years after the first (initial) exposure to the virus. It is not known what causes this virus to be reactivated. What increases the risk? People who have had chickenpox or received the chickenpox vaccine are at risk for shingles. Shingles infection is more common in people who: Are older than 60 years of age. Have a weakened disease-fighting system (immune system), such as people with: ?HIV (human immunodeficiency virus). ?AIDS (acquired immunodeficiency syndrome). ?Cancer. Are taking medicines that weaken the immune system, such as organ transplant medicines. Are experiencing a lot of stress. What are the signs or symptoms? Early symptoms of this condition include itching, tingling, and pain in an area on your skin. Pain may be described as burning, stabbing, or throbbing. A few days or weeks after early symptoms start, a painful red rash appears. The rash is usually on one side of the body and has a band-like or belt-like pattern. The rash eventually turns into fluid-filled blisters that break open, change into scabs, and dry up in about 2 3 weeks. At any time during the infection, you may also develop: A fever. Chills. A headache. Nausea. How is this diagnosed? This condition is diagnosed with a skin exam. Skin or fluid samples (a culture) may be taken from the blisters before a diagnosis is made. How is this treated? The rash may last for several weeks. There is not a specific cure for this condition. Your health care provider may prescribe medicines to help you manage pain, recover more quickly, and avoid long-term problems. Medicines may include: Antiviral medicines. Anti-inflammatory medicines. Pain medicines. Anti-itching medicines (antihistamines). If the area involved is on your face, you may be referred to a specialist, such as an eye doctor (casting chipper) or an ear, nose, and throat (ENT) doctor (derrick boat captain) to help you avoid eye problems, chronic pain, or disability. Follow these instructions at home: Medicines Take nnxu-che-lrdymds and prescription medicines only as told by your health care provider. Apply an anti-itch cream or numbing cream to the affected area as told by your health care provider. Relieving itching and discomfort Apply cold, wet cloths (cold compresses) to the area of the rash or blisters as told by your healthcare provider. Cool baths can be soothing. Try adding baking soda or dry oatmeal to the water to reduce itching. Do not bathe in hot water. Use calamine lotion as recommended by your health care provider. This is an gyqo-tvz-dhpmbqi lotionthat helps to relieve itchiness. Blister and rash care Keep your rash covered with a loose bandage (dressing). Wear loose-fitting clothing to help ease the pain of material rubbing against the rash. Wash your hands with soap and water for at least 20 seconds before and after you change your dressing. If soap and water are not available, use hand impregnation operator. Change your dressing as told by your health care provider. Keep your rash and blisters clean by washing the area with mild soap and cool water as told by yourhealth care provider. Check your rash every day for signs of infection. Check for: ?More redness, swelling, or pain. ?Fluid or blood. ?Warmth. ?Pus or a bad smell. Do not scratch your rash or pick at your blisters. To help avoid scratching: ?Keep your fingernails clean and cut short. ?Wear gloves or mittens while you sleep, if scratching is a problem. General instructions Rest as told by your health care provider. Wash your hands often with soap and water for at least 20 seconds. If soap and water are not available, use hand impregnation operator. Doing this lowers your chance of getting a bacterial skin infection. Before your blisters change into scabs, your shingles infection can cause chickenpox in people who have never had it or have never been vaccinated against it. To prevent this from happening, avoid contact with other people, especially: ?Babies. ? women. ?Children who have eczema. ?Older people who have transplants. ?People who have chronic illnesses, such as cancer or AIDS. Keep all follow-up visits. This is important. How is this prevented? Getting vaccinated is the best way to prevent shingles and protect against shingles complications. If you have not been vaccinated, talk with your health care provider about getting the vaccine. Where to find more information Centers for Disease Control and Prevention: www.cdc.gov Contact a health care provider if: Your pain is not relieved with prescribed medicines. Your pain does not get better after the rash heals. You have any of these signs of infection: ?More redness, swelling, or pain around the rash. ?Fluid or blood coming from the rash. ?Warmth coming from your rash. ?Pus or a bad smell coming from the rash. ?A fever. Get help right away if: The rash is on your face or nose. You have facial pain, pain around your eye area, or loss of feeling on one side of your face. You have difficulty seeing. You have ear pain or have ringing in your ear. You have a loss of taste. Your condition gets worse. Summary Shingles, also known as herpes zoster, is an infection that causes a painful skin rash and fluid-filled blisters. This condition is diagnosed with a skin exam. Skin or fluid samples (a culture) may be taken from the blisters. Keep your rash covered with a loose bandage (dressing). Wear loose-fitting clothing to help ease the pain of material rubbing against the rash. Before your blisters change into scabs, your shingles infection can cause chickenpox in people who have never had it or have never been vaccinated against it. This information is not intended to replace advice given to you by your health care provider. Make sure you discuss any questions you have with your health care provider. Document Revised: 06/12/2021 Document Reviewed: 06/12/2021 [employer] Patient Education 2022 [email or web address]. Follow Up Care 01/27/2024 12:48:42 With:Berry Canales FAM, MED Address:Unknown When: Unknown [facility] 07-29-2024 NotePatient Education Infectious Disease Shingles Shingles, which is also known as herpes zoster, is an infection that causes a painful skin rash andfluid-filled blisters. It is caused by a virus. Shingles only develops in people who: ? Have had chickenpox. ? Have been vaccinated against chickenpox. Shingles is rare in this group. What are the causes? Shingles is caused by varicella-zoster virus. This is the same virus that causes chickenpox. After a person is exposed to the virus, it stays in the body in an inactive (dormant) state. Shingles develops if the virus is reactivated. This can happen many years after the first (initial) exposure to the virus. It is not known what causes this virus to be reactivated. What increases the risk? People who have had chickenpox or received the chickenpox vaccine are at risk for shingles. Shingles infection is more common in people who: ? Are older than 60 years of age. ? Have a weakened disease-fighting system (immune system), such as people with: ? HIV (human immunodeficiency virus). ? AIDS (acquired immunodeficiency syndrome). ? Cancer. ? Are taking medicines that weaken the immune system, such as organ transplant medicines. ? Are experiencing a lot of stress. What are the signs or symptoms? Early symptoms of this condition include itching, tingling, and pain in an area on your skin. Pain may be described as burning, stabbing, or throbbing. A few days or weeks after early symptoms start, a painful red rash appears. The rash is usually on one side of the body and has a band-like or belt-like pattern. The rash eventually turns into fluid-filled blisters that break open, change into scabs, and dry up in about 2?3 weeks. At any time during the infection, you may also develop: ? A fever. ? Chills. ? A headache. ? Nausea. How is this diagnosed? This condition is diagnosed with a skin exam. Skin or fluid samples (a culture) may be taken from the blisters before a diagnosis is made. How is this treated? The rash may last for several weeks. There is not a specific cure for this condition. Your health care provider may prescribe medicines to help you manage pain, recover more quickly, and avoid long-term problems. Medicines may include: ? Antiviral medicines. ? Anti-inflammatory medicines. ? Pain medicines. ? Anti-itching medicines (antihistamines). If the area involved is on your face, you may be referred to a specialist, such as an eye doctor (casting chipper) or an ear, nose, and throat (ENT) doctor (derrick boat captain) to help you avoid eye problems, chronic pain, or disability. Follow these instructions at home: Medicines ? Take rnsq-fuu-rnvkqas and prescription medicines only as told by your health care provider. ? Apply an anti-itch cream or numbing cream to the affected area as told by your health care provider. Relieving itching and discomfort ? Apply cold, wet cloths (cold compresses) to the area of the rash or blisters as told by your health care provider. ? Cool baths can be soothing. Try adding baking soda or dry oatmeal to the water to reduce itching.Do not bathe in hot water. ? Use calamine lotion as recommended by your health care provider. This is an ablo-jzk-isvcloh lotion that helps to relieve itchiness. Blister and rash care ? Keep your rash covered with a loose bandage (dressing). Wear loose-fitting clothing to help ease the pain of material rubbing against the rash. ? Wash your hands with soap and water for at least 20 seconds before and after you change your dressing. If soap and water are not available, use hand impregnation operator. ? Change your dressing as told by your health care provider. ? Keep your rash and blisters clean by washing the area with mild soap and cool water as told by your health care provider. ? Check your rash every day for signs of infection. Check for: ? More redness, swelling, or pain. ? Fluid or blood. ? Warmth. ? Pus or a bad smell. ? Do not scratch your rash or pick at your blisters. To help avoid scratching: ? Keep your fingernails clean and cut short. ? Wear gloves or mittens while you sleep, if scratching is a problem. General instructions ? Rest as told by your health care provider. ? Wash your hands often with soap and water for at least 20 seconds. If soap and water are not available, use hand impregnation operator. Doing this lowers your chance of getting a bacterial skin infection. ? Before your blisters change into scabs, your shingles infection can cause chickenpox in people who have never had it or have never been vaccinated against it. To prevent this from happening, avoid contact with other people, especially: ? Babies. ? women. ? Children who have eczema. ? Older people who have transplants. ? People who have chronic illnesses, such as cancer or AIDS. ? Keep all follow-up visits. This is important. How is this prevented (more content not included)...[facility] 01-24-2024 Evaluation + Plan noteExtracted from: Title:Discharge Note Author:Lalo Boyd DO Date:01/24/24 stable Discharge To, Anticipated II - Home with home health Home with home health care Discharge Diet(s): Calorie Controlled- 1800 Calorie Diet (01/24/24 09:36:00) Prescriptions dextromethorphan-promethazine 15 mg-6.25 mg/5 mL Oral Syrup 5 mL, 5 mL, Oral, q6hr, PRN, Not taking DuoNeb 2.5 mg-0.5 mg/3 mL Soln-Inh, 3 mL, Inhalation, QID DuoNeb 2.5 mg-0.5 mg/3 mL Soln-Inh, 3 mL, NEB, 6x/Day, 1 refills homatropine-hydrocodone 1.5 mg-5 mg/5 mL oral syrup, 5 mL, Oral, q4hr, PRN, Not taking Lasix 20 mg Tab, 20 mg= 1 tab(s), Oral, Daily Levaquin 750 mg Tab, 750 mg= 1 tab(s), Oral, q24hr levothyroxine 137 mcg (0.137 mg) Tab, See Instructions, 4 refills montelukast 10 mg Tab, See Instructions Mucinex 600 mg Tab-ER, 1200 mg= 2 tab(s), Oral, BID, Not taking Pantoprazole [address] Tab, 40 mg= 1 tab(s), Oral, Daily, 3 refills Potassium Chloride (Nzo-Urjv-Whv M20) 20 mEq oral tablet, extended release, 20 mEq= 1 tab(s), Oral, BID predniSONE 20 mg Tab, 20 mg= 1 tab(s), Oral, As Directed ProAir RespiClick 90 mcg/inh inhalation powder, 2 puff(s), Inhalation, q4hr, PRN, 11 refills Wixela Inhub 250 mcg-50 mcg inhalation powder, See Instructions Zofran 4 mg Tab, 4 mg= 1 tab(s), Oral, q6hr, 1 refills Home celecoxib 200 mg Cap, 200 mg= 1 cap(s), Oral, BID Flonase 0.05 mg/inh nasal spray, 2 spray(s), Nasal, Daily Ozempic (1 mg dose), See Instructions Prolia, 60 mg, SubCutaneous, q6mo Rinvoq 15 mg oral tablet, extended release, 15 mg= 1 tab(s), Oral, Daily Spiriva Respimat 1.25 mcg/inh inhalation aerosol, 2 inh, Inhalation, Daily NEW: 1. Levaquin 750 mg 1 p.o. daily for 7 days With When Contact Information Berry Beth Additional Instructions: Keep scheduled appointment Extracted from: Title:Progress Note * Author:Louis Beyer M.D Date:01/24/24 Impression and Plan Diagnosis: RLE Cellulitis Leukocytosis. Course: Improving. Orders Transition to PO Levaquin WBC NL . Extracted from: Title:Progress/SOAP Note Author:Oliver YOSTJanine Date:01/23/24 63-year-old female admitted for cellulitis right leg with sepsis and leukocytosis. Comorbidities include obesity, diabetes, hypothyroidism, asthma, GERD and recently diagnosed with right leg skin cancer after biopsy about 4 weeks ago. 1. Sepsis (A41.9: Sepsis, unspecified organism) Secondary to right leg cellulitis present on admission Improving Maintain IV meropenem and vancomycin Blood cultures x 2 no growth to date Ordered: [facility] Care/Day Moderate 35 Minutes 66948 2. Cellulitis (L03.90: Cellulitis, unspecified) See above Continue IV meropenem and vancomycin Ultrasound of the right leg shows diffuse subcutaneous edema and skin thickening associated with cellulitis and no well-defined loculated drainable collection sonographically Ordered: [facility] Care/Day Moderate 35 Minutes 31573 3. Leukocytosis (D72.829: Elevated white blood cell count, unspecified) Secondary to #1 and 2 above White count down to 10.9 but still with a left shift of 88.7% neutrophils Cultures no growth to date Ordered: [facility] Care/Day Moderate 35 Minutes 24303 4. Asthma (J45.909: Unspecified asthma, uncomplicated) Maintain budesonide twice daily and DuoNebs 4 times daily as needed with albuterol every 2 hours as needed as well Ordered: [facility] Care/Day Moderate 35 Minutes 28255 5. History of colitis (Z87.19: Personal history of other diseases of the digestive system) Stable Ordered: [facility] Care/Day Moderate 35 Minutes 73693 6. DM2 (diabetes mellitus, type 2) (E11.9: Type 2 diabetes mellitus without complications) Sliding-scale insulin coverage for diabetes Ordered: [facility] Care/Day Moderate 35 Minutes 57237 7. Gastroesophageal reflux disease without esophagitis (K21.9: Gastro-esophageal reflux disease without esophagitis) Maintain p.o. PPI Ordered: [facility] Care/Day Moderate 35 Minutes 33089 8. Hypothyroidism (E03.9: Hypothyroidism, unspecified) Continue levothyroxine Ordered: [facility] Care/Day Moderate 35 Minutes 64814 9. Obesity (E66.9: Obesity, unspecified) Therapeutic lifestyle modification changes in the outpatient setting Ordered: [facility] Care/Day Moderate 35 Minutes 50902 10. Skin cancer (C44.90: Unspecified malignant neoplasm of skin, unspecified) Will need follow-up with oncology in the outpatient setting Ordered: [facility] Care/Day Moderate 35 Minutes 83115 11. On deep vein thrombosis (DVT) prophylaxis (Z79.899: Other skilled nursing (current) drug therapy) Subcu enoxaparin Ordered: [facility] Care/Day Moderate 35 Minutes 27317 Sinus tachycardia (R00.0: Tachycardia, unspecified) Orders: insulin lispro, 0-10 unit(s), Injection-Insulin, SubCutaneous, QIDACHS, Routine, Start date 01/22/24 16:30:00 EDT tramadol, 50 mg = 1 tab(s), Tab, Oral, q6hr PRN Pain for 7 day(s), Stop date 01/29/24 15:19:00 EDT, Routine, Start date 01/22/24 15:20:00 EDT, 01/22/24 15:20:00 EDT Basic Metabolic Panel CBC w/ Auto Diff Dressing Care/Change eGFR Routine Capillary Glucose POC PLAN: 1. As outlined above 2. Lab in a.m. 3. Ulcer prophylaxis with p.o. PPI 4. DVT prophylaxis with subcu enoxaparin 5. Full CODE STATUS 6. Cultures no growth to date; will check with ID tomorrow 7. Discharge planning Extracted from: Title:Progress/SOAP Note Author:Janine Boyd DO Date:01/22/24 63-year-old female admitted for cellulitis right leg with sepsis and leukocytosis. Comorbidities include obesity, diabetes, hypothyroidism, asthma, GERD and recently diagnosed with right leg skin cancer after biopsy about 4 weeks ago. 1. Sepsis (A41.9: Sepsis, unspecified organism) Secondary to right leg cellulitis present on admission Improving Maintain IV meropenem and vancomycin Blood cultures x 2 no growth to date 2. Cellulitis (L03.90: Cellulitis, unspecified) See 1 above Erythema with minimal improvement Continue IV meropenem and vancomycin Ultrasound of the right leg shows diffuse subcutaneous edema and skin thickening associated with cellulitis and no well-defined loculated drainable collection sonographically 3. Leukocytosis (D72.829: Elevated white blood cell count, unspecified) Secondary to 1 and 2 above White count down to 13.8 with 90.6% neutrophils Repeat lab in a.m. Cultures no growth to date 4. Asthma (J45.909: Unspecified asthma, uncomplicated) Budesonide twice daily with DuoNebs 4 times daily as needed and albuterol every 2 hours as needed 5. History of colitis (Z87.19: Personal history of other diseases of the digestive system) Stable 6. DM2 (diabetes mellitus, type 2) (E11.9: Type 2 diabetes mellitus without complications) Provide sliding-scale insulin for coverage 7. Gastroesophageal reflux disease without esophagitis (K21.9: Gastro-esophageal reflux disease without esophagitis) Continue oral PPI 8. Hypothyroidism (E03.9: Hypothyroidism, unspecified) Levothyroxine 9. Obesity (E66.9: Obesity, unspecified) Therapeutic lifestyle modification changes recommended 10. Skin cancer (C44.90: Unspecified malignant neoplasm of skin, unspecified) Recently diagnosed with skin biopsy Follow-up with oncology in the outpatient setting 11. On deep vein thrombosis (DVT) prophylaxis (Z79.899: Other terminal carman (current) drug therapy) Subcu enoxaparin Sinus tachycardia (R00.0: Tachycardia, unspecified) Orders: insulin lispro, 0-10 unit(s), Injection-Insulin, SubCutaneous, QIDACHS, Routine, Start date 01/22/24 16:30:00 EDT Routine Capillary Glucose POC PLAN: 1. As outlined above 2. Repeat lab in a.m. 3. Ulcer prophylaxis with p.o. PPI 4. DVT prophylaxis with enoxaparin 5. Full CODE STATUS Extracted from: Title:Infection Admission H&P * Author:Louis Beyer M.D Date:01/21/24 Impression and Plan Diagnosis RLE Cellulitis Recent hospital stay for ? Asthma. Orders Given patient's recent receipt of Levaquin and steroids for now agree with vancomycin and meropenem. Await blood cultures. Ultimately if cultures do not yield any significant pathogen feel we will easily be able to narrow her coverage to just gram-positive treatment. For now given her recent hospital stay and steroid use though continue the broad-spectrum while the cultures are early.. Extracted from: Title:APSO Note Author:CÉSAR HDZ, Mbanefo Date: 63-year-old female with obes ity, diabetes mellitus, hypothyroidism, asthma GERD, who was recently diagnosed with right leg skin cancer after biopsy about 4 weeks ago presented with complaints of right leg redness, pain, chills and was admitted with sepsis secondary to acute right leg cellulitis, leukocytosis. 1. Sepsis (A41.9: Sepsis, unspecified organism) Sepsis secondary to right leg cellulitis present on admission. Sepsis is resolving. Treating with IV meropenem and IV vancomycin. Continue on IV fluid. Lasix on hold. Follow cultures. Ordered: [facility] Care/Day Moderate 35 Minutes 31622 2. Cellulitis (L03.90: Cellulitis, unspecified) Acute right leg cellulitis present on admission. Continue on IV meropenem and vancomycin. On IV fluid. Follow cultures. DVT study pending. Ordered: [facility] Care/Day Moderate 35 Minutes 84126 3. Leukocytosis (D72.829: Elevated white blood cell count, unspecified) Secondary to above. WBC trending down. Follow cultures. Repeat CBC in AM. Ordered: CBC w/ Auto Diff [facility] Care/Day Moderate 35 Minutes 11790 4. Asthma (J45.909: Unspecified asthma, uncomplicated) Clinically stable. Continue nebulizer treatments. Ordered: [facility] Care/Day Moderate 35 Minutes 40030 5. History of colitis (Z87.19: Personal history of other diseases of the digestive system) Supportive care. On Rinvoq at home Ordered: [facility] Care/Day Moderate 35 Minutes 23459 6. DM2 (diabetes mellitus, type 2) (E11.9: Type 2 diabetes mellitus without complications) Continue on long-acting and short acting insulin. 7. Gastroesophageal reflux disease without esophagitis (K21.9: Gastro-esophageal reflux disease without esophagitis) On pantoprazole. 8. Hypothyroidism (E03.9: Hypothyroidism, unspecified) On Synthroid. 9. Obesity (E66.9: Obesity, unspecified) Recommend therapeutic lifestyle modification changes. 10. Skin cancer (C44.90: Unspecified malignant neoplasm of skin, unspecified) Recently diagnosed. Status post surgery/biopsy. Follow-up with oncologist. 11. On deep vein thrombosis (DVT) prophylaxis (Z79.899: Other terminal carman (current) drug therapy) Lovenox. I discussed the diagnosis and plan of care with the patient at the bedside. Moderate level of MDM based on addressing above issues. This documentation was transcribed using voice recognition software. Several attempts were made to ensure accuracy. However inadvertent computerized visual and stock associate errors may be present. Alessandro Castañeda. Hospitalist. Sinus tachycardia (R00.0: Tachycardia, unspecified) Orders: levothyroxine, 137 mcg = 1 tab(s), Tab, Oral, Daily, Routine, Start date 01/22/24 6:30:00 EDT, 01/21/24 9:07:00 EDT montelukast, 10 mg = 1 tab(s), Tab, Oral, Daily, Routine, Start date 01/22/24 9:00:00 EDT, 01/21/24 9:07:00 EDT pantoprazole, 40 mg = 1 tab(s), Tab-EC, Oral, Daily, Routine, Start date 01/22/24 9:00:00 EDT, 01/21/24 9:08:00 EDT Extracted from: Title:Admission H & P Author:Halle HOUSTON DO Date:01/21/24 1. Sepsis (A41.9: Sepsis, un specified organism) Leukocytosis, tachycardia, cellulitis. Patient was initially given IV clindamycin in the emergency department. But since erythema of the lower extremity has been expanding I will change to IV meropenem and vancomycin. Will consult infectious disease for assistance with antibiotic management. Will also consult vascular surgery because of concern for vascular insufficiency. I have ordered right lower extremity ultrasound to better evaluate the area. Will give patient normal saline 1 L fluid bolus and maintain on 0.9 normal saline 75 mill per hour. Hesitant to give more fluids because of concern for fluid overload. Of note patient has been on prednisone recently therefore elevated white blood cell count may be a side effect of prednisone however given overall presentation I feel the benefits of antibiotics outweigh the risks. 2. Cellulitis (L03.90: Cellulitis, unspecified) See #1 3. Asthma (J45.909: Unspecified asthma, uncomplicated) Pulmonary toilet as ordered -budesonide neb twice daily, duo-nebs q6hrs and alb neb q2hrs prn. 4. History of colitis (Z87.19: Personal history of other diseases of the digestive system) Symptomatically resolved. Supportive care. 5. DM2 (diabetes mellitus, type 2) (E11.9: Type 2 diabetes mellitus without complications) Diabetic diet. Sliding scale insulin. 6. Gastroesophageal reflux disease without esophagitis (K21.9: Gastro-esophageal reflux disease without esophagitis) PPI 7. Hypothyroidism (E03.9: Hypothyroidism, unspecified) Continue home Synthroid dose 8. On deep vein thrombosis (DVT) prophylaxis (Z79.899: Other skilled nursing (current) drug therapy) SCD, enoxaparin Orders: acetaminophen, 650 mg = 2 tab(s), Tab, Oral, q6hr PRN Pain, Routine, Start date 01/21/24 2:58:00 EDT, 01/21/24 2:58:00 EDT albuterol, 2.5 mg, 3 mL, Soln-Inh, Inhalation, q2hr PRN Shortness of breath or wheezing, Routine, Start date 01/21/24 2:56:00 EDT albuterol-ipratropium, 3 mL, Soln-Inh, Inhalation, QID PRN Dyspnea for 30 day(s), Stop date 02/20/24 2:55:00 EDT, Routine, Start date 01/21/24 2:56:00 EDT budesonide, 0.5 mg = 2 mL, Susp-Inh, NEB, BID for 30 day(s), Stop date 02/20/24 7:59:00 EDT, Routine, Start date 01/21/24 8:00:00 EDT, 01/21/24 2:56:00 EDT diphenhydrAMINE, 25 mg = 1 cap(s), Cap, Oral, q6hr PRN Itching, Routine, Start date 01/21/24 2:58:00 EDT, 01/21/24 2:58:00 EDT enoxaparin, 40 mg = 0.4 mL, Injection, SubCutaneous, Daily for 30 day(s), Stop date 02/20/24 8:59:00 EDT, Routine, Start date 01/21/24 9:00:00 EDT, 01/21/24 2:58:00 EDT hydrALAZINE, 10 mg = 0.5 mL, Injection, IV Push, q6hr PRN Other (see comment), Routine, Start date 01/21/24 2:58:00 EDT, 01/21/24 2:58:00 EDT ibuprofen, 800 mg = 1 tab(s), Tab, Oral, TID PRN Pain, Routine, Start date 01/21/24 2:58:00 EDT, 01/21/24 2:58:00 EDT meropenem + Sodium Chloride 0.9% intravenous solution 50 mL, 1,000 mg = 1 EA, IV Piggyback, q8hr, Routine, Start date 01/21/24 3:00:00 EDT, 100 mL/hr, Infuse over 30 minute(s), 01/21/24 2:24:00 EDT ondansetron, 4 mg = 2 mL, Injection, IV Push, q6hr PRN Nausea, Routine, Start date 01/21/24 2:58:00 EDT, 01/21/24 2:58:00 EDT Sodium Chloride 0.9% intravenous solution, 1,000 mL, Soln-IV, IV, Once, Stop date 01/21/24 3:00:00 EDT, Routine, Start date 01/21/24 3:00:00 EDT, Infuse over 61, minute(s) Sodium Chloride 0.9% intravenous solution 1,000 mL, 1,000 mL, IV, 75 mL/hr, Routine, Start date 01/21/24 2:58:00 EDT, 13.3 hour(s), Total volume (mL): 1,000, 89.5 kg, 1.92, m2 vancomycin, PHARMACY TO DOSE, Injection, IV, As Directed, Routine, Start date 01/21/24 2:21:00 EDT Ambulate with Assistance Below the Knee Intermittent Pneumatic Compression Device Cardiac Monitoring CBC w/ Indices Consult to Infectious Disease Physician Consult to Vascular Surgery Diabetic/Calorie Control Diet Notify Provider Vital Signs Notify Provider Vital Signs Place in Status Precautions Resuscitation Status - Full US PVR Lower EXT Limited Vital Signs Weight Anticipated stay greater than 2 midnights due to above Extracted from: Title:ED Note Author:Shalom Toledo DO Date :01/21/24 Cellulitis (L03.90: Cellulit is, unspecified) Sinus tachycardia (R00.0: Tachycardia, unspecified) Orders: clindamycin + Dextrose 5% in Water intravenous solution 50 mL, 600 mg = 50 mL, IV Piggyback, Once, Stop date 01/21/24 0:49:00 EDT, STAT, Start date 01/21/24 0:49:00 EDT, 100 mL/hr, Infuse over 30 minute(s), 01/21/24 0:49:00 EDT ondansetron, 4 mg = 2 mL, Injection, IV Push, Once, Stop date 01/20/24 23:12:00 EDT, STAT, Start date 01/20/24 23:12:00 EDT, 01/20/24 23:12:00 EDT Sodium Chloride 0.9% intravenous solution, 1,000 mL, Soln-IV, IV, Once, Stop date 01/20/24 22:21:00 EDT, STAT, Start date 01/20/24 22:21:00 EDT, Infuse over 61, minute(s) Blood Culture Charcoal Blood Culture Charcoal CBC w/ Auto Diff Comprehensive Metabolic Panel Continuous Pulse Oximetry ECG 12 Lead Adult ED Cardiac Monitoring ED Physician consult Hospitalist for continued care eGFR Lactic Acid Lactic Acid Oxygen Therapy PT & PTT Troponin UA with Cult Rflx XR Chest Single View Future Appointments Appointment Date:01/29/2024 02:00:00 PM Scheduled Provider:Berry Canales Location:[facility] Appointment Type: Hospital Follow Up w/TCM Future Scheduled Tests Laboratory* CBC w/ Auto Diff 05/10/23 [facility] 07-26-2024 Hospital Discharge instructions Patient Education 01/24/2024 09:52:14 Cellulitis, Adult Cellulitis, Adult Cellulitis is a skin infection. The infected area is usually warm, red, swollen, and tender. This condition occurs most often in the arms and lower legs. The infection can travel to the muscles, blood, and underlying tissue and become serious. It is very important to get treated for this condition. What are the causes? Cellulitis is caused by bacteria. The bacteria enter through a break in the skin, such as a cut, burn, insect bite, open sore, or crack. What increases the risk? This condition is more likely to occur in people who: Have a weak body defense system (immune system). Have open wounds on the skin, such as cuts, [place], bites, and scrapes. Bacteria can enter the body through these open wounds. Are older than 60 years of age. Have diabetes. Have a type of long-lasting (chronic) liver disease (cirrhosis) or kidney disease. Are obese. Have a skin condition such as: ?Itchy rash (eczema). ?Slow movement of blood in the veins (venous stasis). ?Fluid buildup below the skin (edema). Have had radiation therapy. Use IV drugs. What are the signs or symptoms? Symptoms of this condition include: Redness, streaking, or spotting on the skin. Swollen area of the skin. Tenderness or pain when an area of the skin is touched. Warm skin. A fever. Chills. Blisters. How is this diagnosed? This condition is diagnosed based on a medical history and physical exam. You may also have tests, including: Blood tests. Imaging tests. How is this treated? Treatment for this condition may include: Medicines, such as antibiotic medicines or medicines to treat allergies (antihistamines). Supportive care, such as rest and application of cold or warm cloths (compresses) to the skin. Hospital care, if the condition is severe. The infection usually starts to get better within 1 2 days of treatment. Follow these instructions at home: Medicines Take spyn-ctr-crfofou and prescription medicines only as told by your health care provider. If you were prescribed an antibiotic medicine, take it as told by your health care provider. Do notstop taking the antibiotic even if you start to feel better. General instructions Drink enough fluid to keep your urine pale yellow. Do not touch or rub the infected area. Raise (elevate) the infected area above the level of your heart while you are sitting or lying down. Apply warm or cold compresses to the affected area as told by your health care provider. Keep all follow-up visits as told by your health care provider. This is important. These visits letyour health care provider make sure a more serious infection is not developing. Contact a health care provider if: You have a fever. Your symptoms do not begin to improve within 1 2 days of starting treatment. Your bone or joint underneath the infected area becomes painful after the skin has healed. Your infection returns in the same area or another area. You notice a swollen bump in the infected area. You develop new symptoms. You have a general ill feeling (malaise) with muscle aches and pains. Get help right away if: Your symptoms get worse. You feel very sleepy. You develop vomiting or diarrhea that persists. You notice red streaks coming from the infected area. Your red area gets larger or turns dark in color. These symptoms may represent a serious problem that is an emergency. Do not wait to see if the symptoms will go away. Get medical help right away. Call your local emergency services (911 in the [place] Do not drive yourself to the hospital. Summary Cellulitis is a skin infection. This condition occurs most often in the arms and lower legs. Treatment for this condition may include medicines, such as antibiotic medicines or antihistamines. Take htgu-skf-bkszxvq and prescription medicines only as told by your health care provider. If you were prescribed an antibiotic medicine, do not stop taking the antibiotic even if you start to feel better. Contact a health care provider if your symptoms do not begin to improve within 1 2 days of startingtreatment or your symptoms get worse. Keep all follow-up visits as told by your health care provider. This is important. These visits letyour health care provider make sure that a more serious infection is not developing. This information is not intended to replace advice given to you by your health care provider. Make sure you discuss any questions you have with your health care provider. Document Revised: 03/28/2022 Document Reviewed: 03/29/2022 [employer] Patient Education 2022 [email or web address]. 01/24/2024 09:52:09 Cellulitis, Adult, Gdcc-vo-Oxhl Cellulitis, Adult Cellulitis is a skin infection. The infected area is often warm, red, swollen, and sore. It occurs most often in the arms and lower legs. It is very important to get treated for this condition. What are the causes? This condition is caused by bacteria. The bacteria enter through a break in the skin, such as a cut, burn, insect bite, open sore, or crack. What increases the risk? This condition is more likely to occur in people who: Have a weak body defense system (immune system). Have open cuts, medina, bites, or scrapes on the skin. Are older than 60 years of age. Have a blood sugar problem (diabetes). Have a long-lasting (chronic) liver disease (cirrhosis) or kidney disease. Are very overweight (obese). Have a skin problem, such as: ?Itchy rash (eczema). ?Slow movement of blood in the veins (venous stasis). ?Fluid buildup below the skin (edema). Have been treated with high-energy rays (radiation). Use IV drugs. What are the signs or symptoms? Symptoms of this condition include: Skin that is: ?Red. ?Streaking. ?Spotting. ?Swollen. ?Sore or painful when you touch it. ?Warm. A fever. Chills. Blisters. How is this diagnosed? This condition is diagnosed based on: Medical history. Physical exam. Blood tests. Imaging tests. How is this treated? Treatment for this condition may include: Medicines to treat infections or allergies. Home care, such as: ?Rest. ?Placing cold or warm cloths (compresses) on the skin. Hospital care, if the condition is very bad. Follow these instructions at home: Medicines Take omil-isr-oxqljgx and prescription medicines only as told by your doctor. If you were prescribed an antibiotic medicine, take it as told by your doctor. Do not stop taking it even if you start to feel better. General instructions Drink enough fluid to keep your pee (urine) pale yellow. Do not touch or rub the infected area. Raise (elevate) the infected area above the level of your heart while you are sitting or lying down. Place cold or warm cloths on the area as told by your doctor. Keep all follow-up visits as told by your doctor. This is important. Contact a doctor if: You have a fever. You do not start to get better after 1 2 days of treatment. Your bone or joint under the infected area starts to hurt after the skin has healed. Your infection comes back. This can happen in the same area or another area. You have a swollen bump in the area. You have new symptoms. You feel ill and have muscle aches and pains. Get help right away if: Your symptoms get worse. You feel very sleepy. You throw up (vomit) or have watery poop (diarrhea) for a long time. You see red streaks coming from the area. Your red area gets larger. Your red area turns dark in color. These symptoms may represent a serious problem that is an emergency. Do not wait to see if the symptoms will go away. Get medical help right away. Call your local emergency services (911 in the [place] Do not drive yourself to the hospital. Summary Cellulitis is a skin infection. The area is often warm, red, swollen, and sore. This condition is treated with medicines, rest, and cold and warm cloths. Take all medicines only as told by your doctor. Tell your doctor if symptoms do not start to get better after 1 2 days of treatment. This information is not intended to replace advice given to you by your health care provider. Make sure you discuss any questions you have with your health care provider. Document Revised: 03/29/2022 Document Reviewed: 03/29/2022 [employer] Patient Education 2022 [email or web address]. Follow Up Care 01/20/2024 21:48:12 With:Berry Beth Address:Unknown When: Unknown Comments:Keep scheduled appointment [facility] 07-26-2024 NoteDischarge Summary Admission and Discharge Information Admit Date/Time:01/21/2024 01:16 Admitting Physician - Halle HOUSTON DO Consulting Physician - Kayleen Vee, Louis Marcial MD, Dmitriy Bradshaw. Admitting Diagnoses: Discharge Order Date Discharge with Home Health - Ordered -- 01/24/24 9:37:00 EDT, home with [facility] Discharge Diagnoses 1. Sepsis, 01/21/2024 2. Cellulitis, 01/21/2024 3. Leukocytosis, 01/21/2024 4. Asthma, 01/21/2024 5. History of colitis, 01/21/2024 6. DM2 (diabetes mellitus, type 2), 01/21/2024 7. Gastroesophageal reflux disease without esophagitis, 01/21/2024 8. Hypothyroidism, 01/21/2024 9. Obesity, 01/21/2024 10. Skin cancer, 01/21/2024 11. On deep vein thrombosis (DVT) prophylaxis, 01/21/2024 Chills, 01/20/2024 Lower leg pain-swelling, 01/20/2024 Nausea, 01/20/2024 Sinus tachycardia, 01/21/2024 Procedure History EGD (esophagogastroduodenoscopy) gastric outlet reduction (05/21/2022), Colonoscopy (05/09/2021), EGD - Esophagogastroduodenoscopy (05/09/2021), Cataract extraction, Cholecystectomy, Foot repair, Hysterectomy, Knee replacement, Shoulder, Tonsillectomy and adenoidectomy; age 12 or over. Hospital Course Significant Findings Please refer to history and physical for details of admission. Patient presented emergency room January 20 because of cellulitis to her right lower leg. On January 19 she felt nauseated and felt like her heart was racing. She had a skin biopsy performed on her right clarke for possible skin cancer 3 weeks prior. It has been draining and having surrounding erythema. There is no discomfort per patient. However, on January 19 she started having subjective fevers, chills and nausea throughout the course of the day. She started noticing erythema around her biopsy site luann few hours later she started not feeling well. She looked at her biopsy site and the erythema increased in size so she came to the ED to be evaluated. In the emergency room vital signs were stable bu t she did have 14.9 white count with a neutrophilic shift. The rest of her labs are unremarkable except for lactic acid level was 2.6. Urinalysis was negative. She was started on fluids and IV clindamycin and admitted to the medical service. On the medical service patient was admitted for sepsis manifested as leukocytosis, tachycardia and cellulitis. She was switched off the clindamycin to IV meropenem and vancomycin and infectious disease was consulted. Cultures were sent. Right lower extremity ultrasound was ordered and was performedon 20 January. It showed diffuse subcutaneous edema and skin thickening associate with cellulitis but no well-defined loculated drainable collection. Over the course of the next couple of days her erythema did start to recede. She did have a yellowish-brown drainage from her biopsy site which was dressed. ID recommended maintaining antibiotics as started and wait for cultures to dictate further treatment. Cultures remained no growth to date due to blood cultures. Today she is doing much better. Will get a give a little potassium before she is discharged home. ID recommends switching her to p.o. Levaquin. Procedures and Treatment Provided 1. Lower extremity ultrasound 01/21/2024 2. Infectious disease consult Services Consulted Consult to Infectious Disease Physician - Ordered -- 01/21/24 2:56:00 EDT, sepsis/cellulitis, Consult and Co-manage Consult to Vascular Surgery - Ordered -- 01/21/24 2:56:00 EDT, LE edema/cellultis/sepsis, Consult and Co-manage, FT Heart and Vascular Physical Exam Vitals & Measurements T: 36.4 ?C(Axillary) TMIN: 36.4 ?C(Axillary) TMAX: 36.9 ?C(Axillary) HR: 85(Monitored) RR: 16 BP: 134/71 SpO2: 94% WT: 92.2 kg Constitutional: Awake and alert; oriented x 3 with no apparent distress or respiratory distress Head/neck: Neck supple with no palpable lymphadenopathy, bruits or masses; trachea midline Chest/lungs: Clear to auscultation bilaterally no wheezes or rhonchi noted bilaterally Cardiovascular: Regular rate and rhythm; normal S1-S2 with no murmur; no pitting edema and 1+ pulses bilaterally Gastrointestinal: Soft, nontender, nondistended, positive bowel sounds; obese Neurological: Nonfocal; cranial nerves II through XII appear intact Psychological: Pleasant affect Dermatological: Right lower extremity with erythema and warmth from the ankle to the infrapatellar region well-circumscribed - some resolution of the erythema noted; bandage over shallow ulcer on theright clarke clean and dry Tests Performed US Extremity Non-Vascular Limited Right XR Chest Single View Discharge Plan Patient Discharge Condition stable Discharge Disposition Discharge To, Anticipated II - Home with home health Home with home health care Discharge Diet Discharge Diet(s): Calorie Controlled- 1800 Calorie Diet (01/24/24 09:36:00) Discharge Medication List Prescriptions dextromethorphan-promethazine 15 mg-6.25 mg/5 mL Oral Syrup 5 mL, 5 mL, Oral, q6hr, PRN, Not takin (more content not included)...[facility] Comment on above:Result Comment: Electronically Signed By: Lalo Boyd DO\Date and Time Signed: 01/24/24 10:54 [id number] NoteProgress Note-Physician Patient: CAROLINA GUTIERREZ Age: 63 years Sex: Female : 1960 Associated Diagnoses: None Author: Louis Beyer M.D Subjective Overall patient doing much better than when I had seen her this past Saturday. RLE feeling better. Review of Systems Constitutional: Negative. Health Status Allergies: Allergic Reactions (Selected) Severity Not Documented Cefzil- Unknown. Eliquis- Unknown. Keflex- Hives. Penicillin G benzathine- Hives. Pradaxa- Unknown. Current medications: Medications (16) Active Scheduled: (7) budesonide 0.5 mg/2 mL Inh Susp [F] 0.5 mg 2 mL, NEB, BID enoxaparin 40 mg/0.4 mL SC Alyx [F] 40 mg 0.4 mL, SubCutaneous, BID insulin lispro 100 units/mL (HUMALOG) 10 mL SubQ inj [F] 0-10 unit(s), SubCutaneous, QIDACHS levothyroxine 137 mcg (0.137 mg) Tab [F] 137 mcg 1 tab(s), Oral, Daily meropenem + Sodium Chloride 0.9% Minibag 50 mL 1,000 mg 1 EA, IV Piggyback, q8hr montelukast 10 mg Tab [F] 10 mg 1 tab(s), Oral, Daily pantoprazole [address] Tab [F] 40 mg 1 tab(s), Oral, Daily Continuous: (1) Sodium Chloride 0.9% 1,000 mL 1,000 mL, IV, 75 mL/hr PRN: (8) acetaminophen 325 mg Tab UD [F] 650 mg 2 tab(s), Oral, q6hr albuterol 0.083% Inh Alyx 3 mL [F] 2.5 mg 3 mL, Inhalation, q2hr albuterol-ipratropium 2.5 mg-0.5 mg/3 mL SOLN [F] 3 mL, Inhalation, QID diphenhydrAMINE 25 mg Cap [F] 25 mg 1 cap(s), Oral, q6hr hydrALAZINE 20 mg/mL Inj [F] 10 mg 0.5 mL, IV Push, q6hr ibuprofen 800 mg Tab [F] 800 mg 1 tab(s), Oral, TID ondansetron 2 mg/mL Inj [F] 4 mg 2 mL, IV Push, q6hr traMADol 50 mg Tab [F] 50 mg 1 tab(s), Oral, q6hr Problem list: All Problems Allergic rhinitis / SNOMED CT 626517468 / Confirmed Anemia / SNOMED CT 807552782 / Confirmed Anti-citrullinated protein antibody detected / SNOMED CT 6630315628 / Confirmed Asthma / SNOMED CT 169830100 / Confirmed Adult BMI 38.0-38.9 kg/sq m / SNOMED CT 663229568 / Confirmed BMI 40.0-44.9, adult / SNOMED CT 0898308679 / Confirmed Morbid obesity with BMI of 40.0-44.9, adult / SNOMED CT 3931705023 / Confirmed Bronchitis / SNOMED CT 73036313 / Confirmed Oral thrush / SNOMED CT 849719239 / Confirmed Chronic peripheral venous hypertension with lower extremity complication / SNOMED CT 6062563296 / Confirmed Chronic sinusitis / SNOMED CT 51863714 / Confirmed Colitis / SNOMED CT 301599883 / Confirmed Cough / SNOMED CT 89430323 / Confirmed Derangement of knee / SNOMED CT 429954690 / Confirmed Diverticular disease / SNOMED CT 6399422902 / Confirmed Shortness of breath / SNOMED CT 878689156 / Confirmed Esophageal web / SNOMED CT 79001519 / Confirmed Exposure to COVID-19 virus / SNOMED CT 8563928288 / Confirmed Fluid level behind tympanic membrane of both ears / SNOMED CT 606451406 / Confirmed Gastroesophageal reflux disease without esophagitis / ICD-10-CM K21.9 / Confirmed History of colitis / SNOMED CT 099159554 / Confirmed Hx of pulmonary embolus / SNOMED CT 947473372 / Confirmed Low hemoglobin / SNOMED CT 0487750432 / Confirmed Hemorrhoids / SNOMED CT 200437839 / Confirmed Hypothyroidism / SNOMED CT 64235980 / Confirmed Hypoxemia / SNOMED CT 4370423788 / Confirmed Left lower lobe pneumonia / SNOMED CT 192602013 / Confirmed Moderate asthma without complication / SNOMED CT 2274456533 / Confirmed Lung nodules / SNOMED CT 0204103224 / Confirmed Nasal congestion / SNOMED CT 171533741 / Confirmed Obesity due to excess calories / SNOMED CT 1433806546 / Confirmed Bilateral otitis media / SNOMED CT 278323840 / Confirmed Right otitis media / SNOMED CT 213728495775961 / Confirmed Annual physical exam / SNOMED CT 806618366 / Confirmed Pre-op exam / SNOMED CT 349848380 / Confirmed Hospital discharge follow-up / SNOMED CT 4063709142 / Confirmed Rheumatoid arthritis involving multiple sites with positive rheumatoid factor / ICD-10-CM M05.79 / Confirmed Smoker / SNOMED CT 500383241 / Confirmed Added secondary to documentation in Social History. Non-insulin dependent type 2 diabetes mellitus / SNOMED CT 609847067 / Confirmed DM2 (diabetes mellitus, type 2) / SNOMED CT 247828277 / Confirmed Weight loss, unintentional / SNOMED CT 2432829355 / Confirmed Viral gastritis / SNOMED CT 882033936 / Confirmed Wheezing / SNOMED CT 92067789 / Confirmed Objective Vital Signs (last 24 hrs) Last Charted Temp Axillary 36.4 DegC (JAN 23 08:14) Heart Rate Monitored 85 bpm (JAN 23 08:49) SBP 134 mmHg (JAN 23 08:15) DBP 71 mmHg (JAN 23 08:15) Weight 92.2 kg (JAN 23 05:00) General: Alert and oriented. Eye: Pupils are equal, round and reactive to light. HENT: Normocephalic. Neck: Supple. Respiratory: Lungs are clear to auscultation. Cardiovascular: Normal rate, Regular rhythm. Gastrointestinal: Soft, Non-tender, Non-distended. Integumentary: RLE less erythema Open ulcer anterior lower clarke. Edema of RLE. Review / Management Res (more content not included)...[facility] Result Comment: Electronically Signed By: Louis Beyer M.D\.br\Date and Time Signed: 01/24/24 09:17 [id number] NoteProgress Note - Pharmacy Vancomycin Pharmacy to Dose Consult Note 1. VANCO STATUS: Vancomycin therapy has been discontinued. Vancomycin level(s) have been discontinued. Pharmacy vancomycin dosing service will sign off. Thank you for allowing us to participate in this patient's care. Please contact pharmacy if there are questions.[facility]07-23-2024 Note Consultation Note Patient: CAROLINA GUTIERREZ Age: 63 years Sex: Female : 1960 Associated Diagnoses: None Author: Louis Beyer M.D Chief Complaint 01/21/2024 2:56 EDT I have cellulitis in my R lower leg, chills and I am nauseaous. 01/20/2024 22:03 EDT Pt states tonight started with R lower leg redness, chills, nausea. Pt had skincancer removed on that leg about 3 weeks ago. States redness just started today and has gotten rapidly worse. History of Present Illness Patient was admitted due to her right lower leg becoming red and swollen and painful. She states she had a skin cancer taken off a few weeks back before and was wearing compression stockings but the area kept oozing. It finally became red and inflamed yesterday. Patient has significant allergies toKeflex and penicillin for which causes hives. She is placed on vancomycin. Blood cultures were taken. Of note she was recently here in the hospital for pulmonary issue. She had been seen in the ER December 28 and sent home. One of her blood cultures from that day were positive for group B strep. She was really seen in the emergency room and then admitted January 03 but blood cultures were negative at that time. Of note imaging at that time did not show any pneumonia on CT of the chest. Patient was not aware that she had a positive blood culture from the December 28 ER stay. When she was discharged from here she does recall being sent out on steroids and Levaquin for which should have worked for this organism. Review of Systems Constitutional: Negative except as documented in history of present illness. Health Status Allergies: Allergic Reactions (Selected) Severity Not Documented Cefzil- Unknown. Eliquis- Unknown. Keflex- Hives. Penicillin G benzathine- Hives. Pradaxa- Unknown. Current medications: Medications (16) Active Scheduled: (8) budesonide 0.5 mg/2 mL Inh Susp [F] 0.5 mg 2 mL, NEB, BID enoxaparin 40 mg/0.4 mL SC Alyx [F] 40 mg 0.4 mL, SubCutaneous, BID levothyroxine 137 mcg (0.137 mg) Tab [F] 137 mcg 1 tab(s), Oral, Daily meropenem + Sodium Chloride 0.9% Minibag 50 mL 1,000 mg 1 EA, IV Piggyback, q8hr montelukast 10 mg Tab [F] 10 mg 1 tab(s), Oral, Daily pantoprazole [address] Tab [F] 40 mg 1 tab(s), Oral, Daily vancomycin + Generic Diluent 300 mL 1,500 mg 300 mL, IV Piggyback, q18hr vancomycin PHARMACY TO DOSE [F] PHARMACY TO DOSE, IV, As Directed Continuous: (1) Sodium Chloride 0.9% 1,000 mL 1,000 mL, IV, 75 mL/hr PRN: (7) acetaminophen 325 mg Tab UD [F] 650 mg 2 tab(s), Oral, q6hr albuterol 0.083% Inh Alyx 3 mL [F] 2.5 mg 3 mL, Inhalation, q2hr albuterol-ipratropium 2.5 mg-0.5 mg/3 mL SOLN [F] 3 mL, Inhalation, QID diphenhydrAMINE 25 mg Cap [F] 25 mg 1 cap(s), Oral, q6hr hydrALAZINE 20 mg/mL Inj [F] 10 mg 0.5 mL, IV Push, q6hr ibuprofen 800 mg Tab [F] 800 mg 1 tab(s), Oral, TID ondansetron 2 mg/mL Inj [F] 4 mg 2 mL, IV Push, q6hr Problem list: All Problems Allergic rhinitis / SNOMED CT 217616876 / Confirmed Anemia / SNOMED CT 610177992 / Confirmed Anti-citrullinated protein antibody detected / SNOMED CT 8857917761 / Confirmed Asthma / SNOMED CT 582580211 / Confirmed Adult BMI 38.0-38.9 kg/sq m / SNOMED CT 454864229 / Confirmed BMI 40.0-44.9, adult / SNOMED CT 5554242730 / Confirmed Morbid obesity with BMI of 40.0-44.9, adult / SNOMED CT 9691924378 / Confirmed Bronchitis / SNOMED CT 18362330 / Confirmed Oral thrush / SNOMED CT 178552155 / Confirmed Chronic peripheral venous hypertension with lower extremity complication / SNOMED CT 0755188367 / Confirmed Chronic sinusitis / SNOMED CT 25704843 / Confirmed Colitis / SNOMED CT 755657597 / Confirmed Cough / SNOMED CT 75440864 / Confirmed Derangement of knee / SNOMED CT 641936723 / Confirmed Diverticular disease / SNOMED CT 5101448507 / Confirmed Shortness of breath / SNOMED CT 476280472 / Confirmed Esophageal web / SNOMED CT 47320179 / Confirmed Exposure to COVID-19 virus / SNOMED CT 9599107927 / Confirmed Fluid level behind tympanic membrane of both ears / SNOMED CT 876799519 / Confirmed Gastroesophageal reflux disease without esophagitis / ICD-10-CM K21.9 / Confirmed History of colitis / SNOMED CT 813670955 / Confirmed Hx of pulmonary embolus / SNOMED CT 637575018 / Confirmed Low hemoglobin / SNOMED CT 6892341990 / Confirmed Hemorrhoids / SNOMED CT 627571882 / Confirmed Hypothyroidism / SNOMED CT 51398940 / Confirmed Hypoxemia / SNOMED CT 8924319774 / Confirmed Left lower lobe pneumonia / SNOMED CT 911440752 / Confirmed Moderate asthma without complication / SNOMED CT 2007992002 / Confirmed Lung nodules / SNOMED CT 6275356765 / Confirmed Nasal congestion / SNOMED CT 870688689 / Confirmed Obesity due to excess calories / SNOMED CT 0229513647 / Confirmed Bilateral otitis media / SNOMED CT 022799840 / Confirmed Right otitis media / SNOMED CT 331720065813296 / Confirmed Annual physical exam / SNOMED CT 929203243 (more content not included)...[facility]Result Comment: Electronically Signed By: Louis Beyer M.D\Date and Time Signed: 01/21/24 14:05 [id number] Note Progress Note-Physician Assessment/Plan 63-year-old female with obesity, diabetes mellitus, hypothyroidism, asthma GERD, who was recently diagnosed with right leg skin cancer after biopsy about 4 weeks ago presented with complaints of right leg redness, pain, chills and was admitted with sepsis secondary to acute right leg cellulitis, leukocytosis. 1. Sepsis (A41.9: Sepsis, unspecified organism) Sepsis?secondary to right leg cellulitis?present on admission. Sepsis is resolving. Treating with IV meropenem and IV vancomycin. Continue on IV fluid. Lasix on hold. Follow cultures. Ordered: [facility] Hospital Care/Day Moderate 35 Minutes 97229 2. Cellulitis (L03.90: Cellulitis, unspecified) Acute right leg cellulitis?present on admission. Continue on IV meropenem and vancomycin. On IV fluid. Follow cultures. DVT study?pending. Ordered: [facility] Hospital Care/Day Moderate 35 Minutes 25686 3. Leukocytosis (D72.829: Elevated white blood cell count, unspecified) Secondary to above. WBC trending down. Follow cultures. Repeat CBC in AM. Ordered: CBC w/ Auto Diff [facility] Hospital Care/Day Moderate 35 Minutes 40506 4. Asthma (J45.909: Unspecified asthma, uncomplicated) Clinically stable. Continue nebulizer treatments. Ordered: [facility] Hospital Care/Day Moderate 35 Minutes 57705 5. History of colitis (Z87.19: Personal history of other diseases of the digestive system) Supportive care. On Rinvoq at home Ordered: [facility] Hospital Care/Day Moderate 35 Minutes 20083 6. DM2 (diabetes mellitus, type 2) (E11.9: Type 2 diabetes mellitus without complications) Continue on long-acting and short acting insulin. 7. Gastroesophageal reflux disease without esophagitis (K21.9: Gastro-esophageal reflux disease without esophagitis) On pantoprazole. 8. Hypothyroidism (E03.9: Hypothyroidism, unspecified) On Synthroid. 9. Obesity (E66.9: Obesity, unspecified) Recommend therapeutic lifestyle modification changes. 10. Skin cancer (C44.90: Unspecified malignant neoplasm of skin, unspecified) Recently diagnosed. Status post surgery/biopsy. Follow-up with oncologist. 11. On deep vein thrombosis (DVT) prophylaxis (Z79.899: Other terminal carman (current) drug therapy) Lovenox. I discussed the diagnosis and plan of care with the patient at the bedside. Moderate level of MDM based on addressing above issues. This documentation was transcribed using voice recognition software. Several attempts were made to ensure accuracy. However inadvertent computerized visual and stock associate errors may be present. Alessandro Castañeda. Hospitalist. Sinus tachycardia (R00.0: Tachycardia, unspecified) Orders: levothyroxine, 137 mcg = 1 tab(s), Tab, Oral, Daily, Routine, Start date 01/22/24 6:30:00 EDT, 01/21/24 9:07:00 EDT montelukast, 10 mg = 1 tab(s), Tab, Oral, Daily, Routine, Start date 01/22/24 9:00:00 EDT, :07:00 EDT pantoprazole, 40 mg = 1 tab(s), Tab-EC, Oral, Daily, Routine, Start date 01/22/24 9:00:00 EDT, 01/21/24 9:08:00 EDT Subjective Seen and examined. Offers no new complaints today. Denies any chills. Still has right leg pain. Denies any fever. Objective Vitals & Measurements T: 36.8 ?C(Axillary) TMIN: 36.4 ?C(Oral) TMAX: 36.9 ?C(Oral) HR: 106(Monitored) RR: 18 BP: 111/70 SpO2: 99% HT: 149.86 cm WT: 91.3 kg Intake & Output This visit (24 hour periods starting at 07:00 EDT) 01/21/24 * 01/20/24 01/19/24 Total Summary Intake mL -- 2,027 -- Output mL -- -- -- Fluid Balance -- 2,027 -- Intake (6) Dextrose 5% in Water, clindamycin mL -- 50 -- Generic Diluent, vancomycin mL -- 300 -- Sodium Chloride 0.9% mL -- 1,624 -- Sodium Chloride 0.9%, meropenem mL -- 50 -- morphine mL -- 1 -- ondansetron mL -- 2 -- Total -- 2,027 -- Output (0) Counts (1) Urine Count -- 1 -- * This column has not completed the indicated time period. Physical Exam General: alert, no acute distress, comfortable in bed on room air. Skin: warm, dry Head: no trauma, normocephalic Neck: Trachea midline, no adenopathy, no tenderness Eye: normal conjunctiva, sclera clear ENMT: TM's clear, oral mucosa moist, no pharyngeal erythema or exudate Cardiovascular: regular rate and rhythm, normal peripheral perfusion Respiratory: Lungs CTA, respirations non labored Chest wall: no deformity. Gastrointestinal: soft, non distended, no tenderness, no guarding. Obese. Bowel sounds intact. Back: No tenderness, Normal ROM, Normal alignment. Extremities: no deformity, no trauma, right leg well-circumscribed erythema, tenderness. Warm to touch. Right distal leg 1.5 cm x 1.5 cm shallow ulcer?site of skin cancer biopsy. Neurological: oriented x 4, LOC appropriate for age, CN II-XII intact, motor strength equal & normal bilaterally, sensation equal & normal bilaterally, speech normal Psychiatric: cooperative, affect appropriate for age, normal dinesh (more content not included)...[facility]:Result Comment: Electronically Signed By: CÉSAR HDZ, Susianefo\.br\Date and Time Signed: 01/21/24 09:16 [id number] NoteProgress Note - Pharmacy Vancomycin Pharmacy to Dose Consult Note Indication: Skin and Skin Structure Infection Goal Range: AUC/ISIDRA: 400 - 600 RECOMMENDATIONS/PLAN: Pharmacy consulted for vancomycin dosing for CAROLINA GUTIERREZ, a 63 Years Female who is being treated with vancomycin for sepsis/cellulitis. 1.Vancomycin therapy is still active, today is day 2 of treatment. Patient is receiving Vancomycin 1500 mg IV q18h. 2. No Vancomycin level has been drawn for this dosing regimen 3. DOSING RECS: 4. The next paired levels are scheduled. Peak at 1330 on 01/22 and Trough at 0400 on 01/23. 5. A MRSA Nasal Swab is not appropriate at this time We will follow patient's renal function, vancomycin levels and doses with you during the course of therapy. Additional recommendations will appear in follow up notes. If you have any questions, please contact pharmacy at [phone]. Age: 63 Years Allergies: ALLERGIES Weight: Last Documented Weight and Type of Scale Used Last Documented Weight Weight Measured: 91.3 kg (01/21/24 05:56:00) Type of Scale Used Weight Measured Type of Scale: Bed Scale (digital) (01/21/24 03:12:00) Height: Last Documented Height/Length Last Documented Height/Length Height/Length Measured: 149.86 cm (01/21/24 03:12:00) CrCl: 91.6 mL/min Labs: WBC: 14.9 E9/L High (01/20/24 22:40:00) RBC: 4.5 E12/L (01/20/24 22:40:00) HGB: 13.4 gm/dL (01/20/24 22:40:00) Hct: 39.6 % (01/20/24 22:40:00) MCV: 88.7 fL (01/20/24 22:40:00) MCH: 29.9 pg (01/20/24 22:40:00) MCHC: 33.7 gm/dL (01/20/24 22:40:00) RDW: 17.9 % High (01/20/24 22:40:00) Platelet: 151 E9/L (01/20/24:40:00) MPV: 9.1 fL (01/20/24:40:00) Neutro Auto: 92.6 % High (01/20/24 22:40:00) Lymph Auto: 5 % Low (01/20/24:40:00) Yates Auto: 2 % Low (01/20/24:40:00) Eos Auto: 0.2 % (01/20/24:40:00) Basophil Auto: 0.2 % (01/20/24:40:00) Neutro Absolute: 13.8 E9/L High (01/20/24:40:00) Lymph Absolute: 0.7 E9/L Low (01/20/24:40:00) Yates Absolute: 0.3 E9/L (01/20/24:40:00) Eos Absolute: 0 E9/L (01/20/24:40:00) Basophil Absolute: 0 E9/L (01/20/24:40:00) PT: 10.1 second(s) (01/20/24:40:00) INR: 0.9 (01/20/24:40:00) PTT: 20.4 second(s) Low (01/20/24:40:00) Glucose Lvl: 179 mg/dL (01/20/24:40:00) BUN: 22 mg/dL High (01/20/24:40:00) Creatinine: 0.6 mg/dL (01/20/24:40:00) eGFR: 100 mL/min/1.73 m2 (01/20/24:40:00) BUN/Creat Ratio: 37 High (01/20/24 22:40:00) Sodium Lvl: 137 mmol/L (01/20/24 22:40:00) Potassium Lvl: 5 mmol/L (01/20/24:40:00) Chloride: 104 mmol/L (01/20/24:40:00) CO2: 23 mmol/L (01/20/24 22:40:00) AGAP: 15 mEq/L (01/20/24:40:00) Calcium Lvl: 8.4 mg/dL Low (01/20/24:40:00) Alk Phos: 64 Int._Unit/L (01/20/24 22:40:00) ALT: 26 Int._Unit/L (01/20/24:40:00) AST: 45 Int._Unit/L High (01/20/24:40:00) Total Protein: 6.1 gm/dL (01/20/24 22:40:00) Albumin Lvl: 3.5 gm/dL (01/20/24:40:00) Globulin: 2.6 gm/dL (01/20/24:40:00) A/G Ratio: 1.3 (01/20/24:40:00) Bili Total: 1.1 mg/dL (01/20/24:40:00) Lactic Acid Lvl: 2.6 mmol/L High (01/21/24 02:25:00) Troponin HS: 7 pg/mL Low (01/20/24:40:00) UA Spec Desc: Clean Catch (01/21/24:31:00) UA Color: Yellow (01/21/24:31:00) UA Clarity: Clear (01/21/24:31:00) UA Spec Grav: 1.023 (01/21/24:31:00) UA pH: 5.0 (01/21/24:31:00) UA Protein: Negat (01/21/24:31:00) UA Glucose: Trace Abnormal (01/21/24 01:31:00) UA Ketones: Trace Abnormal (01/21/24:31:00) UA Bili: Negat (01/21/24:31:00) UA Blood: Negat (01/21/24:31:00) UA Nitrite: Negat (01/21/24 01:31:00) UA Urobilinogen: Negat (01/21/24 01:31:00) UA Leuk Est: Negat (01/21/24 01:31:00)[facility] Note Progress Note-Nurse This nurse called Telepharmacy for verification of medication. The patient has Meropenem 1000mg/IV,Normal saline 1L bolus, Normal saline 1L at 75cc/hr and Vancomycin IV ordered. Telepharmacy Toby Jaimes could not verify the medication on the system due to system is down. Telepharmacy gave verbal communication to this nurse that these medication is safe and ok to give to the patient and may start vancomycin 1500mg/ IV loading. Dr houston made aware of the situation and he ordered the vancomycin 1500mg/IV to start.[facility] NoteHistory and Physical Basic Information Admit Date/Time:01/21/2024 01:17 Chief Complaint I have cellulitis in my R lower leg, chills and I am nauseaous. History of Present Illness Patient is a 63-year-old female with past medical history as noted below comes in with above-statedchief complaint. Patient has had 2 recent admissions to the hospital. First was from 01/04/2024 to 01/07/2024 for acute exacerbation of asthma with respiratory failure. Patient was discharged home on a course of oral steroids and Levaquin. The second hospitalization was from 01/08/2024 to 01/11/2024 for colitis. Patient was treated with oral Cipro and Flagyl and IV Solu-Medrol as an inpatient. And the prednisone taper from the respiratory failure discharge was continued. Patient was discharged home on Flagyl, Levaquin and instructed to finish her prednisone taper. Patient is currently at the end ofher prednisone taper. Patient states that throughout the day on 01/20/2024 she felt nauseated and felt like her heart was racing. Of note patient had a skin biopsy performed on her right clarke for possible skin cancer about3 weeks ago. It has been having drainage and surrounding erythema at times. Overall patient did notthink much of it as it did not produce significant discomfort. On 01/20/2024 patient has subjective fevers, chills, nausea throughout the course of the day. Then around 1900 on 01/18/2024 patient noticed some erythema around her biopsy site but again did not think much of it. Several hours later patient was still not feeling well and looked at her red in the area of erythema had increased thereforeshe came to the ED for evaluation. While in the emergency department the area of erythema has increased in size. Patient continues to feel unwell, heart racing and nauseated. Patient denies any chest pain, vision changes, dysuria, diarrhea, constipation. Review of Systems 14 Systems reviewed and negative except as noted in HPI. Scoring Otoole Fall Risk Score: 35 (01/21/24) Physical Exam Vitals & Measurements T: 36.4 ?C(Oral) TMIN: 36.4 ?C(Oral) TMAX: 36.9 ?C(Oral) HR: 72(Peripheral) RR: 18 BP: 105/65 SpO2:95% HT: 149.86 cm WT: 91.3 kg General: alert, no acute distress Skin: Right lower extremity with circumferential erythema inferior to knee and above lateral malleoli. Area has been outlined with a pen. There is significant pitting edema to this area. There is no drainage noted at time of my exam. Head: no trauma, normocephalic Neck: Trachea midline, no adenopathy, no tenderness Eye: normal conjunctiva, sclera clear ENMT: oral mucosa moist, no pharyngeal erythema or exudate. hearing grossly intact Cardiovascular: Tachycardia, no murmur/gallop/rub Respiratory: Lungs CTA, respirations non labored , no w/r/r Gastrointestinal: Positive bowel sound, soft, non distended, no tenderness, no guarding. Extremities: See skin exam Osteopathic: Deferred due to being noncontributory to current case. Neurological: oriented x 4, LOC appropriate for age, CN II-XII intact, motor strength equal & normal bilaterally, sensation equal & normal bilaterally, speech normal Psychiatric: cooperative, affect appropriate for age, normal judgement, normal psychiatric thoughts. Lab Results WBC: 14.9 E9/L High (01/20/24 22:40:00) RBC: 4.5 E12/L (01/20/24 22:40:00) HGB: 13.4 gm/dL (01/20/24 22:40:00) Hct: 39.6 % (01/20/24 22:40:00) MCV: 88.7 fL (01/20/24 22:40:00) MCH: 29.9 pg (01/20/24 22:40:00) MCHC: 33.7 gm/dL (01/20/24:40:00) RDW: 17.9 % High (01/20/24:40:00) Platelet: 151 E9/L (01/20/24:40:00) MPV: 9.1 fL (01/20/24:40:00) Neutro Auto: 92.6 % High (01/20/24:40:00) Lymph Auto: 5 % Low (01/20/24:40:00) Yates Auto: 2 % Low (01/20/24:40:00) Eos Auto: 0.2 % (01/20/24:40:00) Basophil Auto: 0.2 % (01/20/24:40:00) Neutro Absolute: 13.8 E9/L High (01/20/24:40:00) Lymph Absolute: 0.7 E9/L Low (01/20/24:40:00) Yates Absolute: 0.3 E9/L (01/20/24:40:00) Eos Absolute: 0 E9/L (01/20/24:40:00) Basophil Absolute: 0 E9/L (01/20/24:40:00) PT: 10.1 second(s) (01/20/24:40:00) INR: 0.9 (01/20/24:40:00) PTT: 20.4 second(s) Low (01/20/24:40:00) Glucose Lvl: 179 mg/dL (01/20/24:40:00) BUN: 22 mg/dL High (01/20/24:40:00) Creatinine: 0.6 mg/dL (01/20/24:40:00) eGFR: 100 mL/min/1.73 m2 (01/20/24:40:00) BUN/Creat Ratio: 37 High (01/20/24:40:00) Sodium Lvl: 137 mmol/L (01/20/24:40:00) Potassium Lvl: 5 mmol/L (01/20/24:40:00) Chloride: 104 mmol/L (01/20/24:40:00) CO2: 23 mmol/L (07/22/24 22:40:00) AGAP: 15 mEq/L (01/20/24 22:40:00) Calcium Lvl: 8.4 mg/dL Low (01/20/24 22:40:00) Alk Phos: 64 Int._Unit/L (01/20/24 22:40:00) ALT: 26 Int._Unit/L (01/20/24 22:40:00) AST: 45 Int._Unit/L High (01/20/24 22:40:00) Total Protein: 6.1 gm/dL (01/20/24 22:40:00) Albumin Lvl: 3.5 gm/dL (01/20/24 22:40:00) Globulin: 2.6 gm/dL (01/20/24:40:00) A/G Ratio: 1.3 (01/20/24 22:40:00) Bili Total: 1.1 mg/d (more content not included)...[facility] Comment on above:Result Comment: Electronically Signed By: Halle HOUSTON DO\.dusty\Date and Time Signed: 01/21/24 03:22 [id number] NoteMicrobiology PROCEDURE: Blood Culture Charcoal [R1] SOURCE: Blood BODY SITE: Wrist R COLLECTED DATE/TIME: 01/04/2024 17:53 EDT RECEIVED DATE/TIME: 01/04/2024 18:02 EDT START DATE/TIME: 01/04/2024 18:02 EDT FREE TEXT SOURCE: Keisha Garsia PA-C. Keisha Garsia PA-C. FINAL REPORTS Final Report [] Verified Date/Time: 01/11/2024 21:00 EDT No growth at 7 days. Performing Locations R1: This test was performed at: [place], [address] [place] [address], [id number] , , ApmlgxGood [facility]itan HospitalComment on above:Performed By: #### [id number] #### [facility] [address] [place] [address] [id number] NoteMicrobiology PROCEDURE: Blood Culture Charcoal [R1] SOURCE: Blood BODY SITE: Arm L COLLECTED DATE/TIME: 01/04/2024 17:52 EDT RECEIVED DATE/TIME: 01/04/2024 18:01 EDT START DATE/TIME: 01/04/2024 18:01 EDT FREE TEXT SOURCE: Keisha Garsia PA-C, PA-C, Keisha Olivas. FINAL REPORTS Final Report [] Verified Date/Time: 01/11/2024 21:00 EDT No growth at 7 days. Performing Locations R1: This test was performed at: [facility], [address] [place] [address], [id number] [place] [address], DsngafGood Samaritan HospitalComment on above:Performed By: #### [id number] #### [facility] [address] [place] [address] [id number] Evaluation + Plan noteExtracted from: Title:Discharge Note Author:Lalo Boyd DO Date:01/11/24 stable Discharged to - Home independently Discharge Diet(s): Calorie Controlled- 1800 Calorie Diet (01/11/24 09:11:00) Prescriptions dextromethorphan-promethazine 15 mg-6.25 mg/5 mL Oral Syrup 5 mL, 5 mL, Oral, q6hr, PRN DuoNeb 2.5 mg-0.5 mg/3 mL Soln-Inh, 3 mL, Inhalation, QID DuoNeb 2.5 mg-0.5 mg/3 mL Soln-Inh, 3 mL, NEB, 6x/Day, 1 refills homatropine-hydrocodone 1.5 mg-5 mg/5 mL oral syrup, 5 mL, Oral, q4hr, PRN levothyroxine 137 mcg (0.137 mg) Tab, See Instructions, 4 refills MetroNIDAZOLE 250 mg Tab, 250 mg= 1 tab(s), Oral, TID montelukast 10 mg Tab, See Instructions Mucinex 600 mg Tab-ER, 1200 mg= 2 tab(s), Oral, BID Pantoprazole [address] Tab, 40 mg= 1 tab(s), Oral, Daily, 3 refills predniSONE 20 mg Tab, 20 mg= 1 tab(s), Oral, As Directed ProAir RespiClick 90 mcg/inh inhalation powder, 2 puff(s), Inhalation, q4hr, PRN, 11 refills Wixela Inhub 250 mcg-50 mcg inhalation powder, See Instructions Zofran 4 mg Tab, 4 mg= 1 tab(s), Oral, q6hr, 1 refills Home celecoxib 200 mg Cap, 200 mg= 1 cap(s), Oral, BID Flonase 0.05 mg/inh nasal spray, 2 spray(s), Nasal, Daily Levaquin, q24hr Ozempic (1 mg dose), See Instructions Prolia, 60 mg, SubCutaneous, q6mo Rinvoq 15 mg oral tablet, extended release Spiriva Respimat 1.25 mcg/inh inhalation aerosol, 2 inh, Inhalation, Daily NEW: 1. Metronidazole 250 mg 1 p.o. 3 times daily for 7 days With When Contact Information Berry Beth 01/16/2024 02:00 PM EDT [address] [facility] (1) Additional Instructions: Extracted from: Title:Progress/SOAP Note Author:Janine Boyd DO Date:01/10/24 63-year-old female admitted for nausea and vomiting and diarrhea. He has a leukocytosis most likely reactionary but she was on steroids. She also has a lactic acidosis probably from the diarrhea. She was recently admitted and treated for pneumonia and she was sent home on oral Levaquin. Comorbidities include history of asthma, history of PE secondary to COVID on no anticoagulant therapy, type 2 diabetes, diverticular disease, anemia and hypothyroidism. 1. Diarrhea (R19.7: Diarrhea, unspecified) No further episodes C. difficile negative May be secondary to colitis Will saline lock Ordered: [facility] Hospital Care/Day Moderate 35 Minutes 72339 2. Nausea and vomiting (R11.2: Nausea with vomiting, unspecified) Resolved Saline lock fluids Antiemetics as needed Ordered: [facility] Hospital Care/Day Moderate 35 Minutes 56446 3. Lactic acidosis (E87.20: Acidosis, unspecified) Resolved Ordered: [facility] Hospital Care/Day Moderate 35 Minutes 89103 4. Leukocytosis (D72.829: Elevated white blood cell count, unspecified) Still with a leukocytosis with a white count of 16.5 with 9197.1% neutrophilic shift Secondary to colitis Day 2 IV ciprofloxacin and metronidazole Ordered: [facility] Hospital Care/Day Moderate 35 Minutes [id number] Orders: ciprofloxacin + Dextrose 5% in Water intravenous solution 200 mL, 400 mg = 200 mL, Soln-IV, IV Piggyback, q12hr, Routine, Start date 01/09/24 12:00:00 EDT, 200 mL/hr, Infuse over 60 minute(s) furosemide, 20 mg = 2 mL, Injection, IV Push, Daily, NOW, Start date 01/10/24 9:04:00 EDT metronidazole + Generic Diluent 100 mL, 500 mg = 100 mL, Soln-IV, IV Piggyback, q8hr, Routine, Start date 01/09/24 12:00:00 EDT, 100 mL/hr, Infuse over 60 minute(s) Basic Metabolic Panel CBC w/ Auto Diff eGFR Fiber Controlled Diet PLAN: 1. Continue IV ciprofloxacin and metronidazole day 2 2. IV methylprednisolone 40 mg every 8 hours 3. Saline lock 4. Continue levothyroxine, Singulair and Protonix from home 5. DuoNebs 4 times daily 6. Added Lasix 20 mg IV push daily for now; she has some edema may be from her steroids 7. DVT prophylaxis with SCDs and subcu heparin 8. Discharge planning in the next 24 to 48 hours Extracted from: Title:Progress/SOAP Note Author:Janine Boyd DO Date:01/09/24 63-year-old female admitted for nausea and vomiting and diarrhea. He has a leukocytosis most likely reactionary but she was on steroids. She also has a lactic acidosis probably from the diarrhea. She was recently admitted and treated for pneumonia and she was sent home on oral Levaquin. Comorbidities include history of asthma, history of PE secondary to COVID on no anticoagulant therapy, type 2 diabetes, diverticular disease, anemia and hypothyroidism. 1. Diarrhea (R19.7: Diarrhea, unspecified) Negative for C. difficile Continue fluid hydration Ordered: [facility] Hospital Care/Day Moderate 55 Minutes 17801 2. Nausea and vomiting (R11.2: Nausea with vomiting, unspecified) Fluid hydration Clear liquids Antiemetics as needed Ordered: [facility] Hospital Care/Day Moderate 55 Minutes 94388 3. Lactic acidosis (E87.20: Acidosis, unspecified) Lactic acid levels trended down to normal Ordered: [facility] Hospital Care/Day Moderate 55 Minutes 84696 4. Leukocytosis (D72.829: Elevated white blood cell count, unspecified) May be secondary to the nausea/vomiting and diarrhea plus she was on steroids White count down to 17.4 with 91.8% neutrophilic shift Ordered: [facility] Hospital Care/Day Moderate 55 Minutes [id number] Orders: acetaminophen, 650 mg = 2 tab(s), Tab, Oral, q6hr PRN Pain, Routine, Start date 01/08/24 15:12:00 EDT, 01/08/24 15:12:00 EDT Al hydroxide/Mg hydroxide/simethicone, 30 mL, Susp-Oral, Oral, q6hr PRN Indigestion, Routine, Start date 01/08/24 15:12:00 EDT albuterol-ipratropium, 3 mL, Soln-Inh, Inhalation, QID, Routine, Start date 01/08/24 16:00:00 EDT ciprofloxacin + Dextrose 5% in Water intravenous solution 200 mL, 400 mg = 200 mL, IV Piggyback, q12hr, Routine, Start date 01/09/24 12:00:00 EDT, 200 mL/hr, Infuse over 60 minute(s), 01/09/24 11:04:00 EDT guaifenesin, 1,200 mg = 2 tab(s), Tab-ER, Oral, BID, Routine, Start date 01/08/24 21:00:00 EDT, 01/08/24 14:36:00 EDT heparin, 5,000 unit(s) = 1 mL, Injection, SubCutaneous, q8hrFT for 30 day(s), Stop date 02/07/24 15:59:00 EDT, Start date 01/08/24 16:00:00 EDT hydrALAZINE, 10 mg = 0.5 mL, Injection, IV Push, q6hr PRN Other (see comment), Routine, Start date 01/08/24 15:12:00 EDT, 01/08/24 15:12:00 EDT levothyroxine, 137 mcg = 1 tab(s), Tab, Oral, Daily, Routine, Start date 01/09/24 6:30:00 EDT, 01/08/24 14:36:00 EDT methylPREDNISolone, 20 mg = 0.5 mL, Injection, IV Push, q8hr, Routine, Start date 01/09/24 8:00:00 EDT, 01/09/24 7:45:00 EDT metronidazole + Generic Diluent 100 mL, 500 mg = 100 mL, IV Piggyback, q8hr, Routine, Start date 01/09/24 12:00:00 EDT, 100 mL/hr, Infuse over 60 minute(s), 01/09/24 11:02:00 EDT montelukast, 10 mg = 1 tab(s), Tab, Oral, BID, Routine, Start date 01/08/24 21:00:00 EDT, 01/08/24 14:37:00 EDT ondansetron, 4 mg = 2 mL, Injection, IV Push, q6hr PRN Nausea, Routine, Start date 01/08/24 15:12:00 EDT, 01/08/24 15:12:00 EDT pantoprazole, 40 mg = 1 tab(s), Tab-DR, Oral, Daily, Routine, Start date 01/09/24 9:00:00 EDT Sodium Chloride 0.9% intravenous solution 1,000 mL, 1,000 mL, IV, 75 mL/hr, Routine, Start date 01/08/24 15:12:00 EDT, 13.3 hour(s), Total volume (mL): 1,000, 88.9 kg, 1.92, m2 Basic Metabolic Panel Basic Metabolic Panel Below the Knee Intermittent Pneumatic Compression Device CBC w/ Auto Diff CBC w/ Auto Diff Clear Liquid Diet Education Fall Risk eGFR Lactic Acid Notify Provider Vital Signs Notify Provider Vital Signs Precautions Up ad Cece Vital Signs PLAN: 1. Continue fluid hydration 2. I will advance her diet to GI soft 3. I added methylprednisolone 40 mg IV every 8 hours 4. Was reluctant to initially start any antibiotic coverage but will go and put her on Flagyl and Cipro 5. Repeat labs in a.m. 6. Maintain levothyroxine, Singulair and Protonix from home 7. DuoNebs 4 times daily given her asthma history 8. DVT prophylaxis with SCDs and subcu heparin Extracted from: Title:Admission H & P Author:Linda Boyd DO Date:01/08/24 63-year-old female admitted for nausea and vomiting and diarrhea. He has a leukocytosis most likely reactionary but she was on steroids. She also has a lactic acidosis probably from the diarrhea. She was recently admitted and treated for pneumonia and she was sent home on oral Levaquin. Comorbidities include history of asthma, history of PE secondary to COVID on no anticoagulant therapy, type 2 diabetes, diverticular disease, anemia and hypothyroidism. 1. Diarrhea (R19.7: Diarrhea, unspecified) C. difficile ordered Fluid hydration Will hold off on any treatment till C. difficile comes back Ordered: Place in Status 2. Nausea and vomiting (R11.2: Nausea with vomiting, unspecified) Antiemetics as needed Clear liquids Fluid hydration Ordered: Place in Status 3. Lactic acidosis (E87.20: Acidosis, unspecified) Will trend lactic acid level Most likely due to diarrhea 4. Leukocytosis (D72.829: Elevated white blood cell count, unspecified) May be reactionary to the nausea, vomiting and diarrhea; she is also on steroids She was recently treated for pneumonia Will trend Ordered: Place in Status Orders: acetaminophen, 650 mg = 2 tab(s), Tab, Oral, q6hr PRN Pain, Routine, Start date 01/08/24 15:12:00 EDT, 01/08/24 15:12:00 EDT Al hydroxide/Mg hydroxide/simethicone, 30 mL, Susp-Oral, Oral, q6hr PRN Indigestion, Routine, Start date 01/08/24 15:12:00 EDT albuterol-ipratropium, 3 mL, Soln-Inh, Inhalation, QID, Routine, Start date 01/08/24 16:00:00 EDT guaifenesin, 1,200 mg = 2 tab(s), Tab-ER, Oral, BID, Routine, Start date 01/08/24 21:00:00 EDT, 01/08/24 14:36:00 EDT heparin, 5,000 unit(s) = 1 mL, Injection, SubCutaneous, q8hrFT for 30 day(s), Stop date 02/07/24 15:59:00 EDT, Start date 01/08/24 16:00:00 EDT hydrALAZINE, 10 mg = 0.5 mL, Injection, IV Push, q6hr PRN Other (see comment), Routine, Start date 01/08/24 15:12:00 EDT, 01/08/24 15:12:00 EDT levothyroxine, 137 mcg = 1 tab(s), Tab, Oral, Daily, Routine, Start date 01/09/24 6:30:00 EDT, 01/08/24 14:36:00 EDT montelukast, 10 mg = 1 tab(s), Tab, Oral, BID, Routine, Start date 01/08/24 21:00:00 EDT, 01/08/24 14:37:00 EDT ondansetron, 4 mg = 2 mL, Injection, IV Push, q6hr PRN Nausea, Routine, Start date 01/08/24 15:12:00 EDT, 01/08/24 15:12:00 EDT pantoprazole, 40 mg = 1 tab(s), Tab-DR, Oral, Daily, Routine, Start date 01/09/24 9:00:00 EDT Sodium Chloride 0.9% intravenous solution 1,000 mL, 1,000 mL, IV, 75 mL/hr, Routine, Start date 01/08/24 15:12:00 EDT, 13.3 hour(s), Total volume (mL): 1,000, 88.9 kg, 1.92, m2 Basic Metabolic Panel Below the Knee Intermittent Pneumatic Compression Device CBC w/ Auto Diff Clear Liquid Diet Education Fall Risk Lactic Acid Notify Provider Vital Signs Notify Provider Vital Signs Precautions Up ad Cece Vital Signs PLAN: 1. Patient is placed on the medical service 2. Fluid hydration 3. Antiemetics as needed 4. C. difficile ordered 5. Lab for a.m. 6. Clear liquids for now 7. I resumed her levothyroxine, Singulair and tonics from home 8. DuoNeb 4 times daily given her asthma history 9. DVT prophylaxis with SCDs and subcu heparin Anticipate greater than 2 midnight stays for inpatient status for the nausea, vomiting and diarrhea. Extracted from: Title:ED Note Author:Pa Parikh DO Date: Diarrhea (R19.7: Diarrhea, u nspecified) Leukocytosis (D72.829: Elevated white blood cell count, unspecified) Nausea and vomiting (R11.2: Nausea with vomiting, unspecified) Orders: morphine, 4 mg = 1 mL, Injection, IV Push, Once, Stop date 01/08/24 8:00:00 EDT, STAT, Start date 01/08/24 8:00:00 EDT, 01/08/24 8:00:00 EDT ondansetron, 4 mg = 2 mL, Injection, IV Push, Once, Stop date 01/08/24 7:54:00 EDT, STAT, Start date 01/08/24 7:54:00 EDT, 01/08/24 7:54:00 EDT promethazine 25 mg + Sodium Chloride 0.9% intravenous solution 50 mL, Injection, IV Piggyback, Once, Stop date 01/08/24 9:31:00 EDT, STAT, Start date 01/08/24 9:31:00 EDT, 153 mL/hr, Infuse over 20 minute(s) Sodium Chloride 0.9% intravenous solution 1,000 mL, 1,000 mL, IV, 999 mL/hr, STAT, Start date 01/08/24 8:00:00 EDT, 1 hour(s), Total volume (mL): 1,000, 88.9 kg, 1.92, m2 Basic Metabolic Panel CBC w/ Auto Diff Clostridium Difficile PCR CT Abdomen/Pelvis w/ Contrast ECG 12 Lead Adult eGFR Extra SST Tube Hepatic Function Panel Lactic Acid Lactic Acid Lipase Level Path. Review PT & PTT PT & PTT Saline Lock Insert UA with Cult Rflx Future Appointments Appointment Date:01/16/2024 02:00:00 PM Scheduled Provider:Berry Canales Location:[facility] Appointment Type: Hospital Follow Up w/TCM Diagnostic Tests Pending * UA with Cult Rflx 01/08/24 Future Scheduled Tests Laboratory* CBC w/ Auto Diff 05/10/23 [facility]07-13-2024 Hospital Discharge instructions Patient Education 01/11/2024 09:34:40 Diarrhea, Adult, Wnqv-vw-Bjxr Diarrhea, Adult Diarrhea is when you pass loose and watery poop (stool) often. Diarrhea can make you feel weak and cause you to lose water in your body (get dehydrated). Losing water in your body can cause you to: Feel tired and thirsty. Have a dry mouth. Go pee (urinate) less often. Diarrhea often lasts 2 3 days. However, it can last longer if it is a sign of something more serious. It is important to treat your diarrhea as told by your doctor. Follow these instructions at home: Eating and drinking Follow these instructions as told by your doctor: Take an ORS (oral rehydration solution). This is a drink that helps you replace fluids and mineralsyour body lost. It is sold at pharmacies and stores. Drink plenty of fluids, such as: ?Water. ?Ice chips. ?Diluted fruit juice. ?Low-calorie sports drinks. ?Milk, if you want. Avoid drinking fluids that have a lot of sugar or caffeine in them. Eat bland, pzzz-dk-ldqqmd foods in small amounts as you are able. These foods include: ?Bananas. ?Applesauce. ?Rice. ?Low-fat (lean) meats. ?[place]. ?Crackers. Avoid alcohol. Avoid spicy or fatty foods. Medicines Take szrs-xqp-hpwnjco and prescription medicines only as told by your doctor. If you were prescribed an antibiotic medicine, take it as told by your doctor. Do not stop using the antibiotic even if you start to feel better. General instructions Wash your hands often using soap and water. If soap and water are not available, use a hand impregnation operator. Others in your home should wash their hands as well. Hands should be washed: ?After using the toilet or changing a diaper. ?Before preparing, cooking, or serving food. ?While caring for a sick person. ?While visiting someone in a hospital. Drink enough fluid to keep your pee (urine) pale yellow. Rest at home while you get better. Take a warm bath to help with any burning or pain from having diarrhea. Watch your condition for any changes. Keep all follow-up visits as told by your doctor. This is important. Contact a doctor if: You have a fever. Your diarrhea gets worse. You have new symptoms. You cannot keep fluids down. You feel light-headed or dizzy. You have a headache. You have muscle cramps. Get help right away if: You have chest pain. You feel very weak or you pass out (faint). You have bloody or black poop or poop that looks like tar. You have very bad pain, cramping, or bloating in your belly (abdomen). You have trouble breathing or you are breathing very quickly. Your heart is beating very quickly. Your skin feels cold and clammy. You feel confused. You have signs of losing too much water in your body, such as: ?Dark pee, very little pee, or no pee. ?Cracked lips. ?Dry mouth. ?Sunken eyes. ?Sleepiness. ?Weakness. Summary Diarrhea is when you pass loose and watery poop (stool) often. Diarrhea can make you feel weak and cause you to lose water in your body (get dehydrated). Take an ORS (oral rehydration solution). This is a drink that is sold at pharmacies and stores. Eat bland, fhib-nj-lyjxpn foods in small amounts as you are able. Contact a doctor if your condition gets worse. Get help right away if you have signs that you have lost too much water in your body. This information is not intended to replace advice given to you by your health care provider. Make sure you discuss any questions you have with your health care provider. Document Revised: 09/07/2022 Document Reviewed: 12/27/2021 [employer] Patient Education 2022 [email or web address]. 01/11/2024 09:34:31 Nausea, Adult, Xkrr-xq-Pxap Nausea, Adult Nausea is feeling like you may vomit. Feeling like you may vomit is usually not serious, but it maybe an early sign of a more serious medical problem. Vomiting is when stomach contents forcefully come out of your mouth. If you vomit, or if you are not able to drink enough fluids, you may not have enough water in your body (get dehydrated). If you do not have enough water in your body, you may: Feel tired. Feel thirsty. Have a dry mouth. Have cracked lips. Pee (urinate) less often. Older adults and people who have other diseases or a weak body defense system (immune system) have a higher risk of not having enough water in the body. The main goals of treating this condition are: To relieve your nausea. To ensure your nausea occurs less often. To prevent vomiting and losing too much fluid. Follow these instructions at home: Watch your symptoms for any changes. Tell your doctor about them. Eating and drinking Take an ORS (oral rehydration solution). This is a drink that is sold at pharmacies and stores. Drink clear fluids in small amounts as you are able. These include: ?Water. ?Ice chips. ?Fruit juice that has water added (diluted fruit juice). ?Low-calorie sports drinks. Eat bland, gqag-td-lexsvj foods in small amounts as you are able, such as: ?Bananas. ?Applesauce. ?Rice. ?Low-fat (lean) meats. ?[place]. ?Crackers. Avoid drinking fluids that have a lot of sugar or caffeine in them. This includes energy drinks, sports drinks, and soda. Avoid alcohol. Avoid spicy or fatty foods. General instructions Take bsvw-zom-mqtooou and prescription medicines only as told by your doctor. Rest at home while you get better. Drink enough fluid to keep your pee (urine) pale yellow. Take slow and deep breaths when you feel like you may vomit. Avoid food or things that have strong smells. Wash your hands often with soap and water for at least 20 seconds. If you cannot use soap and water, use hand impregnation operator. Make sure that everyone in your home washes their hands well and often. Keep all follow-up visits. Contact a doctor if: You feel worse. You feel like you may vomit and this lasts for more than 2 days. You vomit. You are not able to drink fluids without vomiting. You have new symptoms. You have a fever. You have a headache. You have muscle cramps. You have a rash. You have pain while peeing. You feel light-headed or dizzy. Get help right away if: You have pain in your chest, neck, arm, or jaw. You feel very weak or you faint. You have vomit that is bright red or looks like coffee grounds. You have bloody or black poop (stools) or poop that looks like tar. You have a very bad headache, a stiff neck, or both. You have very bad pain, cramping, or bloating in your belly (abdomen). You have trouble breathing or you are breathing very quickly. Your heart is beating very quickly. Your skin feels cold and clammy. You feel confused. You have signs of losing too much water in your body, such as: ?Dark pee, very little pee, or no pee. ?Cracked lips. ?Dry mouth. ?Sunken eyes. ?Sleepiness. ?Weakness. These symptoms may be an emergency. Get help right away. Call 911. Do not wait to see if the symptoms will go away. Do not drive yourself to the hospital. Summary Nausea is feeling like you are about vomit. If you vomit, or if you are not able to drink enough fluids, you may not have enough water in your body (get dehydrated). Eat and drink what your doctor tells you. Take hxgr-emj-fktwhtd and prescription medicines only as told by your doctor. Contact a doctor right away if your symptoms get worse or you have new symptoms. Keep all follow-up visits. This information is not intended to replace advice given to you by your health care provider. Make sure you discuss any questions you have with your health care provider. Document Revised: 12/22/2021 Document Reviewed: 12/22/2021 [employer] Patient Education 2022 [email or web address]. Follow Up Care 01/08/2024 07:50:34 With:Berry Beth Address: [address] [place] [address] Business (1) When:01/16/2024 14:00:00 [facility]07-13-2024 NoteDischarge Summary Admission and Discharge Information Admit Date/Time:01/08/2024 09:53 Admitting Physician - Lalo Boyd DO Admitting Diagnoses: 1. Diarrhea, 01/08/2024 2. Nausea and vomiting, 01/08/2024 4. Leukocytosis, 01/08/2024 Discharge Order Date Discharge Patient - Ordered -- 01/11/24 9:12:00 EDT, to home Discharge Diagnoses 1. Diarrhea, 01/08/2024 2. Nausea and vomiting, 01/08/2024 3. Lactic acidosis, 01/08/2024 4. Leukocytosis, 01/08/2024 Abdominal pain, 01/08/2024 Diarrhea, 01/08/2024 Nausea and vomiting, 01/08/2024 Procedure History EGD (esophagogastroduodenoscopy) gastric outlet reduction (05/21/2022), Colonoscopy (05/09/2021), EGD - Esophagogastroduodenoscopy (05/09/2021), Cataract extraction, Cholecystectomy, Foot repair, Hysterectomy, Knee replacement, Shoulder, Tonsillectomy and adenoidectomy; age 11 or over. Hospital Course Significant Findings Please refer to history and physical details of admission. Patient presented to the emergency room December and because of left-sided abdominal pain, nausea, vomiting and diarrhea. She was recently admitted here January 03 and discharged January 06 for acute respiratoryfailure with hypoxia, asthma exacerbation, leukocytosis and edema. She still has a slight cough when she left. She was discharged on oral Levaquin for possible pneumonia. Around 2 AM she started developing nausea and vomiting. This is 2 AM on the . She had about 3 episodes of emesis with no blood and no coffee-ground looking emesis. She developed diarrhea described as dark brown but no blood.She has a left-sided lower quadrant abdominal discomfort before the diarrhea. She reports not being able to keep anything down so she came to the ER. In the emergency room vital signs were stable and she was satting well on room air and afebrile. She had a 31.7 white count with 95.2% neutrophilic shift. The rest of her CBC, coags and CMP are unremarkable. Initial lactic acid level was 3.3 with a repeat of 2.6. This CT was ordered. CT of the abdomen pelvis with contrast showed mild uncomplicated pancolitis most likely infection versus inflammatory. She was started on IV fluids and given morphine and Zofran in the ER and placed on the medical service. On the medical service patient was admitted for nausea vomiting and diarrhea. She had a lactic acidosis. We trended her lactic acid levels and we also maintain fluid hydration. With the diarrhea C. difficile in the ED was she was unable to produce any specimen. She was started on clear liquids as well and given pain control and antiemetics as needed. She was able to get a stool sample it was sentfor C. difficile that came back negative. I did start her on IV methylprednisolone and did put her on ciprofloxacin and Flagyl on day 2. Her white count did trend down on day 2-17.48 on day 316.5. This point gets 19.4 but she is also on steroids. Her diarrhea has resolved and she is tolerating p.o. Will send her home and she will finish the prednisone taper from her last admission plus oral Levaquin. I did add 7 days of metronidazole as well for continued coverage of colitis. Procedures and Treatment Provided 1. CT of the abdomen and pelvis with contrast 01/08/2024 Physical Exam Vitals & Measurements T: 37.0 ?C(Oral) TMIN: 36.4 ?C(Axillary) TMAX: 37.0 ?C(Oral) HR: 94(Monitored) RR: 18 BP: 138/55 SpO2: 96% Constitutional: Awake and alert; oriented x 3 with no apparent distress or respiratory distress Head/neck: Neck supple with no palpable lymphadenopathy, bruits or masses; trachea midline Chest/lungs: Clear to auscultation bilaterally no wheezes or rhonchi noted bilaterally Cardiovascular: Regular rate and rhythm; normal S1-S2 with no murmur; 1+ pitting edema and 2+ pulses bilaterally Gastrointestinal: Soft, nontender, nondistended, positive bowel sounds Neurological: Nonfocal; cranial nerves II through XII appear intact Psychological: Pleasant affect Tests Performed UA with Cult Rflx -- Results Pending -- CT Abdomen/Pelvis w/ Contrast Please visit your patient portal for your results or contact your primary care physician. Discharge Plan Patient Discharge Condition stable Discharge Disposition Discharged to - Home independently Discharge Diet Discharge Diet(s): Calorie Controlled- 1800 Calorie Diet (01/11/24 09:11:00) Discharge Medication List Prescriptions dextromethorphan-promethazine 15 mg-6.25 mg/5 mL Oral Syrup 5 mL, 5 mL, Oral, q6hr, PRN DuoNeb 2.5 mg-0.5 mg/3 mL Soln-Inh, 3 mL, Inhalation, QID DuoNeb 2.5 mg-0.5 mg/3 mL Soln-Inh, 3 mL, NEB, 6x/Day, 1 refills homatropine-hydrocodone 1.5 mg-5 mg/5 mL oral syrup, 5 mL, Oral, q4hr, PRN levothyroxine 137 mcg (0.137 mg) Tab, See Instructions, 4 refills MetroNIDAZOLE 250 mg Tab, 250 mg= 1 tab(s), Oral, TID montelukast 10 mg Tab, See Instructions Mucinex 600 mg Tab-ER, 1200 mg= 2 tab(s), Oral, BID Pantoprazole [address] Tab, 40 mg= 1 tab(s), Oral, Daily, 3 refills predniSONE 20 mg Tab, 2 (more content not included)...[facility]:Result Comment: Electronically Signed By: Lalo Boyd DO\Date and Time Signed: 01/11/24 09:54 [id number] Telephone encounter Note* Telephone Encounter - Steve Gambino PA - 01/10/2024 12:36 PM EDT Insurance Name Rosita [id number] Patient's Insurance Case# [id number] Ordering Provider John [facility] [employer]ied [employer] 48443 (CPT ) - REMOVAL DEEP IMPLANT 15713 (CPT ) - SHOULDER SURG PROC UNLISTED The insurance still has this surgical request under CPT code 29950 for revision total shoulder. Didnot get any updated information about the changes CPT code to the codes above. Peer to peer put on hold currently until we can figure out submitting proper CPT coding. [facility] Work Phone: [phone] 786-697007-12-2024 Miscellaneous Notes* Telephone Encounter - Steve Gambino PA - 01/10/2024 12:36 PM EDT Insurance Name Rosita [id number] Patient's Insurance Case# [id number] Ordering Provider John [facility] [employer] 27193 (CPT ) - REMOVAL DEEP IMPLANT 21426 (CPT ) - SHOULDER SURG PROC UNLISTED The insurance still has this surgical request under CPT code 67089 for revision total shoulder. Didnot get any updated information about the changes CPT code to the codes above. Peer to peer put on hold currently until we can figure out submitting proper CPT coding. documented in this [facility] NotePeripheral blood smear evaluation:[facility] HospitalComment on above:Order Comment: Order added by Discern ExpertPerformed By: #### [id number] #### [facility] [address] [facility] [place], [place] [phone] NoteProgress Note-Physician Subjective Day #2 IV Ciprofloxacin and Metronidazole Patient doing well this morning voicing no complaints. No further diarrhea. She has noted some swelling to her lower extremities. Review of Systems Constitutional: no fever, no chills, no sweats, no weakness Respiratory: no shortness of breath, no cough, no orthopnea, no wheezing Cardiovascular: no chest pain, no palpitations, no edema Additional ROS info: Except as noted in the above Review of Systems and in the History of Present Illness all other systems have been reviewed and are negative or noncontributory. Objective Vitals & Measurements T: 36.7 ?C(Axillary) TMIN: 36.5 ?C(Oral) TMAX: 37.3 ?C(Oral) HR: 80(Monitored) RR: 20 BP: 125/66 SpO2: 94% WT: 92.7 kg Intake & Output This visit (24 hour periods starting at 07:00 EDT) 01/10/24 * 01/09/24 01/08/24 Total Summary Intake mL 2.5 1,650.73 984.27 Output mL -- -- -- Fluid Balance 2.5 1,650.73 984.27 Intake (9) Dextrose 5% in Water, ciprofloxacin mL -- 400 -- Generic Diluent, metronidazole mL -- 300 -- Sodium Chloride 0.9% intravenous solution 1,000 mL mL -- 849.23 928.27 Sodium Chloride 0.9%, calcium gluconate mL -- 100 -- Sodium Chloride 0.9%, promethazine mL -- -- 51 furosemide mL 2 -- -- methylPREDNISolone mL 0.5 1.5 -- morphine mL -- -- 1 ondansetron mL -- -- 4 Total 2.5 1,650.73 984.27 Output (0) Counts (0) * This column has not completed the indicated time period. Physical Exam Constitutional: Awake and alert; oriented x 3 with no apparent distress or respiratory distress Head/neck: Neck supple with no palpable lymphadenopathy, bruits or masses; trachea midline Chest/lungs: Clear to auscultation bilaterally no wheezes or rhonchi noted bilaterally Cardiovascular: Regular rate and rhythm; normal S1-S2 with no murmur; 1+ pitting edema and 2+ pulses bilaterally Gastrointestinal: Soft, nontender, nondistended, positive bowel sounds Neurological: Nonfocal; cranial nerves II through XII appear intact Psychological: Pleasant affect Lab Results WBC: 16.5 E9/L High (01/10/24 05:45:00) RBC: 4 E12/L Low (01/10/24 05:45:00) HGB: 11.2 gm/dL Low (01/10/24 05:45:00) Hct: 34.7 % (01/10/24 05:45:00) MCV: 87.8 fL (01/10/24 05:45:00) MCH: 28.4 pg (01/10/24 05:45:00) MCHC: 32.4 gm/dL (01/10/24 05:45:00) RDW: 15.7 % High (01/10/24 05:45:00) Platelet: 143 E9/L Low (01/10/24 05:45:00) MPV: 7.6 fL (01/10/24 05:45:00) Neutro Auto: 97.1 % High (01/10/24 05:45:00) Lymph Auto: 2 % Low (01/10/24 05:45:00) Yates Auto: 0.9 % Low (01/10/24 05:45:00) Eos Auto: 0 % (01/10/24 05:45:00) Basophil Auto: 0 % (01/10/24 05:45:00) Neutro Absolute: 16 E9/L High (01/10/24 05:45:00) Lymph Absolute: 0.3 E9/L Low (01/10/24 05:45:00) Yates Absolute: 0.1 E9/L Low (01/10/24 05:45:00) Eos Absolute: 0 E9/L (01/10/24 05:45:00) Basophil Absolute: 0 E9/L (01/10/24 05:45:00) Glucose Lvl: 176 mg/dL (01/10/24 05:45:00) BUN: 10 mg/dL (01/10/24 05:45:00) Creatinine: 0.3 mg/dL Low (01/10/24 05:45:00) eGFR: 118 mL/min/1.73 m2 (01/10/24 05:45:00) BUN/Creat Ratio: 33 High (01/10/24 05:45:00) Sodium Lvl: 135 mmol/L (01/10/24 05:45:00) Potassium Lvl: 4.2 mmol/L (01/10/24 05:45:00) Chloride: 102 mmol/L (01/10/24 05:45:00) CO2: 30 mmol/L (01/10/24 05:45:00) AGAP: 7 mEq/L (01/10/24 05:45:00) Calcium Lvl: 7.5 mg/dL Low (01/10/24 05:45:00) Assessment/Plan 63-year-old female admitted for nausea and vomiting and diarrhea. He has a leukocytosis most likelyreactionary but she was on steroids. She also has a lactic acidosis probably from the diarrhea. Shewas recently admitted and treated for pneumonia and she was sent home on oral Levaquin. Comorbidities include history of asthma, history of PE secondary to COVID on no anticoagulant therapy, type 2 diabetes, diverticular disease, anemia and hypothyroidism. 1. Diarrhea (R19.7: Diarrhea, unspecified) No further episodes C. difficile negative May be secondary to colitis Will saline lock Ordered: [facility] Hospital Care/Day Moderate 35 Minutes 83542 2. Nausea and vomiting (R11.2: Nausea with vomiting, unspecified) Resolved Saline lock fluids Antiemetics as needed Ordered: [facility] Hospital Care/Day Moderate 35 Minutes 15121 3. Lactic acidosis (E87.20: Acidosis, unspecified) Resolved Ordered: [facility] Hospital Care/Day Moderate 35 Minutes 66822 4. Leukocytosis (D72.829: Elevated white blood cell count, unspecified) Still with a leukocytosis with a white count of 16.5 with 9197.1% neutrophilic shift Secondary to colitis Day 2 IV ciprofloxacin and metronidazole Ordered: [facility] Hospital Care/Day Moderate 35 Minutes [id number] Orders: ciprofloxacin + Dextrose 5% in Water intravenous solution 200 mL, 400 mg = 200 mL, Soln-IV, IV Piggyback, q12hr, Routine, Start date 01/09/24 12:00:00 EDT, 200 mL/hr, Infuse over 60 minute(s) furosemide (more content not included)...[facility] HospitalComment on above:Result Comment: Electronically Signed By: Lalo Boyd DO\Date and Time Signed: 01/10/24 09:57 [id number] NoteProgress Note-Physician Subjective Patient seen and examined this morning No episode of diarrhea overnight or this AM No other complaints Review of Systems Constitutional: no fever, no chills, no sweats, no weakness Respiratory: no shortness of breath, no cough, no orthopnea, no wheezing Cardiovascular: no chest pain, no palpitations, no edema Additional ROS info: Except as noted in the above Review of Systems and in the History of Present Illness all other systems have been reviewed and are negative or noncontributory. Objective Vitals & Measurements T: 36.9 ?C(Oral) TMIN: 36.6 ?C(Axillary) TMAX: 36.9 ?C(Axillary) HR: 100(Monitored) RR: 20 BP: 115/71 SpO2: 97% HT: 149.89 cm WT: 92.5 kg Intake & Output This visit (24 hour periods starting at 07:00 EDT) 01/09/24 * 01/08/24 01/07/24 Total Summary Intake mL -- 910.17 -- Output mL -- -- -- Fluid Balance -- 910.17 -- Intake (4) Sodium Chloride 0.9% intravenous solution 1,000 mL mL -- 854.17 -- Sodium Chloride 0.9%, promethazine mL -- 51 -- morphine mL -- 1 -- ondansetron mL -- 4 -- Total -- 910.17 -- Output (0) Counts (0) * This column has not completed the indicated time period. Physical Exam Constitutional: Awake and alert; oriented x 3 with no apparent distress or respiratory distress Head/neck: Neck supple with no palpable lymphadenopathy, bruits or masses; trachea midline Chest/lungs: Clear to auscultation bilaterally no wheezes or rhonchi noted bilaterally Cardiovascular: Regular rate and rhythm; normal S1-S2 with no murmur; no pitting edema and 2+ pulses bilaterally Gastrointestinal: Soft, nontender, nondistended, positive bowel sounds Neurological: Nonfocal; cranial nerves II through XII appear intact Psychological: Pleasant affect Lab Results WBC: 17.4 E9/L High (01/09/24 06:00:00) RBC: 4.3 E12/L (01/09/24 06:00:00) HGB: 12.4 gm/dL (01/09/24 06:00:00) Hct: 38.4 % (01/09/24 06:00:00) MCV: 88.3 fL (01/09/24 06:00:00) MCH: 28.6 pg (01/09/24 06:00:00) MCHC: 32.3 gm/dL (01/09/24 06:00:00) RDW: 16 % High (01/09/24 06:00:00) Platelet: 149 E9/L Low (01/09/24 06:00:00) MPV: 8 fL (01/09/24 06:00:00) Neutro Auto: 91.8 % High (01/09/24 06:00:00) Lymph Auto: 4.6 % Low (01/09/24 06:00:00) Yates Auto: 3.2 % Low (01/09/24 06:00:00) Eos Auto: 0.2 % (01/09/24 06:00:00) Basophil Auto: 0.2 % (01/09/24 06:00:00) Neutro Absolute: 16 E9/L High (01/09/24 06:00:00) Lymph Absolute: 0.8 E9/L Low (01/09/24 06:00:00) Yates Absolute: 0.6 E9/L (01/09/24 06:00:00) Eos Absolute: 0 E9/L (01/09/24 06:00:00) Basophil Absolute: 0 E9/L (01/09/24 06:00:00) Glucose Lvl: 139 mg/dL (01/09/24 06:00:00) BUN: 25 mg/dL High (01/09/24 06:00:00) Creatinine: 0.4 mg/dL Low (01/09/24 06:00:00) eGFR: 110 mL/min/1.73 m2 (01/09/24 06:00:00) BUN/Creat Ratio: 62 High (01/09/24 06:00:00) Sodium Lvl: 136 mmol/L (01/09/24 06:00:00) Potassium Lvl: 3.3 mmol/L Low (01/09/24 06:00:00) Chloride: 102 mmol/L (01/09/24 06:00:00) CO2: 28 mmol/L (01/09/24 06:00:00) AGAP: 9 mEq/L (01/09/24 06:00:00) Calcium Lvl: 6.7 mg/dL Critical (01/09/24 06:00:00) Lactic Acid Lvl: 1.8 mmol/L (01/08/24 21:11:00) Clostridium difficile by PCR: NEGATIVE1 (01/08/24 18:44:00) Cdiff Specimen Acceptable: Acceptable (01/08/24 18:44:00) Order Cancelled: No, PCR to follow (01/08/24 18:44:00) Assessment/Plan 63-year-old female admitted for nausea and vomiting and diarrhea. He has a leukocytosis most likelyreactionary but she was on steroids. She also has a lactic acidosis probably from the diarrhea. Shewas recently admitted and treated for pneumonia and she was sent home on oral Levaquin. Comorbidities include history of asthma, history of PE secondary to COVID on no anticoagulant therapy, type 2 diabetes, diverticular disease, anemia and hypothyroidism. 1. Diarrhea (R19.7: Diarrhea, unspecified) Negative for C. difficile Continue fluid hydration Ordered: Initial Hospital Care/Day Moderate 55 Minutes 83996 2. Nausea and vomiting (R11.2: Nausea with vomiting, unspecified) Fluid hydration Clear liquids Antiemetics as needed Ordered: Initial Hospital Care/Day Moderate 55 Minutes 95376 3. Lactic acidosis (E87.20: Acidosis, unspecified) Lactic acid levels trended down to normal Ordered: Initial Hospital Care/Day Moderate 55 Minutes [id number] 4. Leukocytosis (D72.829: Elevated white blood cell count, unspecified) May be secondary to the nausea/vomiting and diarrhea plus she was on steroids White count down to 17.4 with 91.8% neutrophilic shift Ordered: Initial Hospital Care/Day Moderate 55 Minutes [id number] Orders: acetaminophen, 650 mg = 2 tab(s), Tab, Oral, q6hr PRN Pain, Routine, Start date 01/08/24 15:12:00 EDT, 01/08/24 15:12:00 EDT Al hydroxide/Mg hydroxide/simethicone, 30 mL, Susp-Oral, Oral, q6hr PRN Indigestion, Routine, Startdate 01/08/24 15:12:00 EDT albuterol-ipratropium, 3 mL, Soln-In (more content not included)...[facility]:Result Comment: Electronically Signed By: Lalo Boyd DO\Date and Time Signed: 01/09/24 11:06 [id number] Note History and Physical Basic Information Admit Date/Time:01/08/2024 09:53 Chief Complaint pt reports being [facility]'d [facility] for PNE, this morning began to have L sided abd pain, n/v/d. States still on abx for PNE. VSS, NAD. History of Present Illness Please note, patient was admitted here January 05, 2024 and discharged yesterday January 07, 2024 for acutehypoxic respiratory failure, asthma exacerbation and pneumonia. This is a 63-year-old white female whose past medical history is significant for: 1. History of asthma 2. Anemia 3. History of PE secondary to COVID 4. Type 2 diabetes 5. Diverticulosis 6. Hypothyroidism Patient was doing fine after being discharged from here yesterday. She still had a slight cough. She was sent home on p.o. Levaquin after being treated with antibiotics for pneumonia. Around 2 AM shestarted developing nausea and vomiting and she had about 3 episodes of emesis with no blood and no coffee once. She also developed diarrhea described as dark brown with no blood. She had some left-sided lower quadrant abdominal discomfort/pressure before the diarrhea. She has been unable to keep anything down so she came into the ER to be evaluated. No other complaints. When she presented to the ER her blood pressure is 124/81 with a pulse of 91 and a respirate of 17.She satting 99% on room air and she is afebrile. Her white count is 31.7 with 95.2% neutrophilic shift. H&H stable at 15.2 and 42.2 and platelets are 196,000. Coags unremarkable. Her CMP essentially unremarkable. Initial lactic acid level was 3.3 and a repeat of 2.6. C. difficile was ordered but she has not been able to produce any stool. CT of the abdomen and pelvis with contrast showed milduncomplicated pancolitis most likely infection versus inflammatory bowel. Patient was given IV morphine and Zofran in the ED followed by promethazine and IV fluids. She is admitted to the medical service for further evaluation and treatment. PAST MEDICAL HISTORY see above PAST SURGICAL HISTORY 1. Cholecystectomy 2. Partial hysterectomy 3. Partial bilateral total knee replacements 4. Right total knee replacement subsequently 5. Bilateral foot surgery 6. Bilateral cataract extraction and lens implantation FAMILY HISTORY Mother with a history of cancer Father with a history of heart disease and aneurysms 3 siblings alive and well 3 children alive and well SOCIAL HISTORY Patient is living at home with her No tobacco history Very rare alcohol use No drug abuse history Review of Systems Constitutional: no fever, no chills, no sweats, no weakness Skin: no Jaundice, no rash, no lesions, nopetechiae ENMT: no ear pain, no sore throat, no congestion, no hoarseness Respiratory: no shortness of breath, no cough, no orthopnea, no wheezing Cardiovascular: no chest pain, no palpitations, no edema Gastrointestinal: no nausea, no vomiting, no diarrhea, no GI bleeding Genitourinary: no dysuria, no hematuria, no discharge, no pain Musculoskeletal: no back pain, no trauma Neurologic: no headache, no dizziness, no numbness, no weakness Psychiatric: no sleeping problems, no irritability, no mood swings/depression. Heme/Lymph: no bleeding tendency, no bruising tendency, no petechiae, no swollen nodes Allergy/Immunologic: no seasonal allergies, no food allergies, no recurrent infections, no impairedimmunity Additional ROS info: Except as noted in the above Review of Systems and in the History of Present Illness all other systems have been reviewed and are negative or noncontributory. Scoring Otoole Fall Risk Score: 45 (01/08/24) Physical Exam Vitals & Measurements T: 36.9 ?C(Axillary) HR: 110(Monitored) RR: 20 BP: 97/64 SpO2: 93% HT: 149.89 cm WT: 89.9 kg General: alert, no acute distress Skin: warm, dry Head: no trauma, normocephalic Neck: Trachea midline, no adenopathy, no tenderness Eye: normal conjunctiva, sclera clear ENMT: TM's clear, oral mucosa moist, no pharyngeal erythema or exudate Cardiovascular: regular rate and rhythm, normal peripheral perfusion Respiratory: Lungs CTA, respirations non labored Chest wall: no deformity. Gastrointestinal: soft, non distended, no tenderness, no guarding. Back: No tenderness, Normal ROM, Normal alignment. Extremities: no deformity, no trauma Neurological: oriented x 4, LOC appropriate for age, CN II-XII intact, motor strength equal & normal bilaterally, sensation equal & normal bilaterally, speech normal Psychiatric: cooperative, affect appropriate for age, normal judgement, normal psychiatric thoughts. Lab Results WBC: 31.7 E9/L Critical (01/08/24 08:44:00) RBC: 4.9 E12/L (01/08/24 08:44:00) HGB: 14.2 gm/dL (01/08/24 08:44:00) Hct: 42.2 % (01/08/24 08:44:00) MCV: 86.5 fL (01/08/24 08:44:00) MCH: 29.1 pg (01/08/24 08:44:00) MCHC: 33.7 gm/dL (01/08/24 08:44:00) RDW: 16.3 % High (01/08/24 08:44:00) Platelet: 196 E9/L (01/08/24 08:44:00) MPV: 7 (more content not included)...[facility]Comment on above:Result Comment: Electronically Signed By: Lalo Boyd DO.br\Date and Time Signed: 01/08/24 16:37 [id number] NotePath ReviewPeripheral blood smear evaluation: Marked neutrophilic leukocytosis consistent with infection. Red blood cell and Platelet: Unremarkable. CPT: 66943 Naman Caicedo MD 01/10/2024 11:56:19 EDT *NA* (01/08/24 8:44 AM)[facility] [facility] S 07-09-2024 Evaluation + Plan noteExtracted from: Title:PCCM progress note Author:Kamryn Rosario Jr., PA-C Date:01/07/24 1. Acute hypoxic respiratory failure, (J96.01: Acute respiratory failure with hypoxia)Acute respiratory failure with hypoxia 2/2 acute asthma exacerbation w/ some mucous plugging +/- fluid overload H/o severe persistent asthma Never smoker Plan: - Pt has been weaned to RA - Offer supplemental O2 to maintain sats 92-96% - Continue bronchodilators, mucinex, singulair, and mucomyst - Continue solumedrol 40mg q8h - Rapid COVID/Flu and RVP neg - BNP is unremarkable but pt has significant BLE edema which she states is chronic but increased from her normal --> agree with diuresis - CTA neg for PE or acute infiltrates --> agree with monitoring off abx for now - Pt reports a significant h/o GERD --> continue PPI to BID and famotidine qHS - Encourage IS and OOB VTE ppx: Lovenox GI ppx: PPI BID, famotidine qHS Ok to d/c home from PCCM perspective Recommend d/c home on prednisone taper Recommend f/u w/ Dr. Del Rio as needed Ordered: B-Type Natriuretic Peptide Orders: acetylcysteine, 200 mg = 2 mL, Soln-Inh, Inhalation, TID, Routine, Start date 01/06/24 14:00:00 EDT, 01/06/24 13:54:00 EDT famotidine, 20 mg = 1 tab(s), Tab, Oral, Once a day (at bedtime), Routine, Start date 01/06/24 21:00:00 EDT, 01/06/24 14:08:00 EDT pantoprazole, 40 mg = 1 tab(s), Tab-DR, Oral, BID, Routine, Start date 01/06/24 21:00:00 EDT, 01/06/24 13:55:00 EDT Add on Test Respiratory Panel by PCR Extracted from: Title:Progress/SOAP Note Author:Kodak Trevino Date:01/06/24 Echocardiogram does not show significant issues in fact normal left ventricular function and normal estimated PA pressure. Patient is responded well to treatment I think she is at risk for discharge and follow-up as an outpatient. Sign off cardiology. 1. Acute hypoxic respiratory failure, (J96.01: Acute respiratory failure with hypoxia)Acute respiratory failure with hypoxia 2. Asthma exacerbation, (J45.901: Unspecified asthma with (acute) exacerbation)Unspecified asthma with (acute) exacerbation 3. Elevated white blood cell count, unspecified, (D72.829: Elevated white blood cell count, unspecified)Leukocytosis 4. Edema, (R60.9: Edema, unspecified)Edema, unspecified 5. Chest pain, unspecified, (R07.9: Chest pain, unspecified)Exertional chest pain 6. Hypertensive urgency, (I16.0: Hypertensive urgency)Hypertensive urgency 7. History of pulmonary embolism, (Z86.711: Personal history of pulmonary embolism)Personal history of pulmonary embolism 8. Chronic GERD, (K21.9: Gastro-esophageal reflux disease without esophagitis)Gastro-esophageal reflux disease without esophagitis 9. Diabetes, (E11.9: Type 2 diabetes mellitus without complications)Type 2 diabetes mellitus without complications 10. Rheumatoid arthritis, (M06.9: Rheumatoid arthritis, unspecified)Rheumatoid arthritis, unspecified 11. Hypothyroidism, (E03.9: Hypothyroidism, unspecified)Hypothyroidism, unspecified 12. Morbid (severe) obesity due to excess calories, (E66.01: Morbid (severe) obesity due to excess calories)Morbid obesity 13. Encounter for deep vein thrombosis (DVT) prophylaxis (Z29.9: Encounter for prophylactic measures, unspecified) Extracted from: Title:PCCM Consult Note Author:Marlene Coronado PA-C, Brianna Wynn. Date:01/06/24 1. Acute hypoxic respiratory failure (J96.01: Acute respiratory failure with hypoxia) 2/2 acute asthma exacerbation w/ some mucous plugging +/- fluid overload H/o severe persistent asthma Never smoker Plan: - Pt has been weaned to RA - Offer supplemental O2 to maintain sats 92-96% - Continue bronchodilators, mucinex, and singulair --> will add mucomyst - Continue solumedrol 40mg q8h - Rapid COVID/Flu neg --> Send RVP - BNP is unremarkable but pt has significant BLE edema which she states is chronic but increased from her normal --> agree with diuresis - CTA neg for PE or acute infiltrates --> agree with monitoring off abx for now - Pt reports a significant h/o GERD --> will increase PPI to BID - Encourage IS and OOB VTE ppx: Lovenox GI ppx: PPI BID Orders: Add on Test Respiratory Panel by PCR Addendum by Gurpreet Smith MD on January 06, 2024 14:04:28 EDT I have seen and evaluated the patient with the physician executive administrative assistant. His history, physical exam, assessment and plan were done in collaboration. I performed an independent physical examination. I agree with all the above. Acute hypoxic respiratory failure: Likely secondary to underlying asthma with an acute exacerbation. CT of the chest was reviewed without significant pathology but with moderate mucus plugging mostly in the right lower lobe airways. Will add Mucomyst nebulizers to her current regiment Continue systemic steroids and bronchodilator therapy. Has significant GERD despite the use of PPI once daily and Pepcid at nighttime. This is likely contributing to her symptoms as well. I will increase her PPI to twice daily and continue with Pepcid. I will send a viral panel to rule out an acute viral infection as a cause of her acute asthma exacerbation. Extracted from: Title:APSO Note Author:Shruthi Stanton CNP Date:01/06/24 1. Acute hypoxic respiratory failure (J96.01: Acute respiratory failure with hypoxia) 2/2 asthma exacerbation, volume overload No home 02 use -Initial ABG: pH 7.470 CO2 36.2 pO2 59.6 HCO3 26.7 + SOB/LEROY, + conversational dyspnea -Chest CTA: No acute cardiopulm process -Consult pulm - pending -Supplemental O2 -> on RA -See below- IV steroids and diuresis as tolerated 2. Asthma exacerbation (J45.901: Unspecified asthma with (acute) exacerbation) Treated outpatient with steroids and Levaquin for questionable pneumonia, no improvement Home regimen for asthma: DuoNebs/Proair, Spiriva Respimat 1.25, Singulair -IV steroids: Solu-medrol 40 mg Q8H -Duonebs scheduled, PRN albuterol -Mucinex, Pulmonary toilet -Consult pulm pending -She had been treated for suspected PNA as out patient, chest CTA negative for such- she has been ordered her final dose of oral Levaquin today -Check sputum cx -> negative 3. Leukocytosis (D72.829: Elevated white blood cell count, unspecified) Secondary to above, with prolonged steroid, RA on Rinvoq -Trend CBC, trending downward 4. Edema (R60.9: Edema, unspecified) BNP normal range, Chest CTA without cardiac decompensation -> clinically she appears volume overloaded with 10 lb weight gain in past 2-3 weeks Likely related to steroids, but good response to IV diuresis -IV lasix 20 mg BID, excellent response -Update echocardiogram, hx of diastolic dysfunction -> pending 5. Exertional chest pain (R07.9: Chest pain, unspecified) ECG non-acute, troponin trend has been negative -Echo and stress testing in 2021 negative -[facility] [place] [facility] - > check echo 6. Hypertensive urgency (I16.0: Hypertensive urgency) Present on admit with improved BP now -BP has stabilized 7. History of pulmonary embolism (Z86.711: Personal history of pulmonary embolism) History of PE, no skilled nursing AC -Chest CTA in ER negative 8. Chronic GERD (K21.9: Gastro-esophageal reflux disease without esophagitis) -PPI 9. Diabetes (E11.9: Type 2 diabetes mellitus without complications) -AccuCheck AC/HS with SSI 10. Rheumatoid arthritis (M06.9: Rheumatoid arthritis, unspecified) -Prescribed Rinvoq but has been off with acute illness 11. Hypothyroidism (E03.9: Hypothyroidism, unspecified) -levothyroxine 137 mcg QD -TSH low, T4 high -> reduced dose to 112 mcg QD and needs repeat TFTs in 6 weeks 12. Morbid obesity (E66.01: Morbid (severe) obesity due to excess calories) -Patient's BMI >30. Lifestyle modifications encouraged. Obesity is a pro- inflammatory state likely affecting above medical processes. Outpatient follow up. -BMI 40 13. Encounter for deep vein thrombosis (DVT) prophylaxis (Z29.9: Encounter for prophylactic measures, unspecified) -Lovenox Orders: furosemide, 20 mg = 2 mL, Injection, IV Push, BID, Routine, Start date 01/05/24 9:00:00 EDT, 01/05/24 8:28:00 EDT methylPREDNISolone, 40 mg = 1 mL, Injection, IV Push, q8hr, Routine, Start date 01/05/24 9:00:00 EDT, 01/05/24 8:27:00 EDT Misc Prescription, Spiriva Respimat 1.25 mcg/inh inhalation aerosol, Inhalation, Daily, Routine, Start date 01/06/24 9:00:00 EDT Consult to Pulmonology Echo Transthoracic Complete Flutter Valve Incentive Spirometry Sputum Culture Responding well to IV lasix, IV steroids/nebs, await echocardiogram and specialists' recommendations FULL CODE Extracted from: Title:Consult Note Author:Maximino HDZ, Gael Gan Date:01/05/24 63-year-old female with uppe r respiratory symptoms possibly consistent with asthma. Concern however for heart failure considering patient with edema and shortness of breath. BNP is not particularly high. Echocardiogram previously had normal LV function and PA pressure. We will repeat echocardiogram in the meantime gentle diuresis would be acceptable. She does of note have coronary artery calcium on CT of the chest. Further workup will depend on echocardiogram findings. Thank for the consult 1. Acute hypoxic respiratory failure (J96.01: Acute respiratory failure with hypoxia) 2. Asthma exacerbation (J45.901: Unspecified asthma with (acute) exacerbation) 3. Leukocytosis (D72.829: Elevated white blood cell count, unspecified) 4. Edema (R60.9: Edema, unspecified) 5. Exertional chest pain (R07.9: Chest pain, unspecified) 6. Hypertensive urgency (I16.0: Hypertensive urgency) 7. History of pulmonary embolism (Z86.711: Personal history of pulmonary embolism) 8. Chronic GERD (K21.9: Gastro-esophageal reflux disease without esophagitis) 9. Diabetes (E11.9: Type 2 diabetes mellitus without complications) 10. Rheumatoid arthritis (M06.9: Rheumatoid arthritis, unspecified) 11. Hypothyroidism (E03.9: Hypothyroidism, unspecified) 12. Morbid obesity (E66.01: Morbid (severe) obesity due to excess calories) 13. Encounter for deep vein thrombosis (DVT) prophylaxis (Z29.9: Encounter for prophylactic measures, unspecified) Extracted from: Title:APSO Note Author:Shruthi Stanton CNP Date:01/05/24 1. Acute hypoxic respiratory failure (J96.01: Acute respiratory failure with hypoxia) 2/2 asthma exacerbation, volume overload No home 02 use -Initial ABG: pH 7.470 CO2 36.2 pO2 59.6 HCO3 26.7 + SOB/LEROY, + conversational dyspnea -Chest CTA: No acute cardiopulm process -Consult pulm - pending -Supplemental O2 -Desat study prior to d/c -See below- IV steroids and diuresis as tolerated 2. Asthma exacerbation (J45.901: Unspecified asthma with (acute) exacerbation) Treated outpatient with steroids and Levaquin for questionable pneumonia, no improvement Home regimen for asthma: DuoNebs/Proair, Spiriva Respimat 1.25, Singulair -IV steroids: Solu-medrol 40 mg Q8H -Duonebs scheduled, PRN albuterol -Mucinex, Pulmonary toilet -Consult pulm pending -She had been treated for suspected PNA as out patient, chest CTA negative for such- she has been ordered her final dose of oral Levaquin today -Check sputum cx 3. Leukocytosis (D72.829: Elevated white blood cell count, unspecified) Secondary to above, with prolonged steroid, RA on Rinvoq -Trend CBC 4. Edema (R60.9: Edema, unspecified) BNP normal range, Chest CTA without cardiac decompensation -> clinically she appears volume overloaded with 10 lb weight gain in past 2-3 weeks Likely related to steroids, but good response to IV diuresis -Gentle IV lasix today, follow response/weights/I's and O's -Update echocardiogram, hx of diastolic dysfunction 5. Exertional chest pain (R07.9: Chest pain, unspecified) ECG non-acute, troponin trend has been negative -Echo and stress testing in 2021 negative -[facility] [place] [facility] has been consulted 6. Hypertensive urgency (I16.0: Hypertensive urgency) Present on admit with improved BP now -Follow BP trends with diuresis 7. History of pulmonary embolism (Z86.711: Personal history of pulmonary embolism) History of PE, no terminal carman AC -Chest CTA in ER negative 8. Chronic GERD (K21.9: Gastro-esophageal reflux disease without esophagitis) -PPI 9. Diabetes (E11.9: Type 2 diabetes mellitus without complications) -AccuCheck AC/HS with SSI 10. Rheumatoid arthritis (M06.9: Rheumatoid arthritis, unspecified) -Prescribed Rinvoq but has been off with acute illness 11. Hypothyroidism (E03.9: Hypothyroidism, unspecified) -levothyroxine 137 mcg QD -TSH pending 12. Morbid obesity (E66.01: Morbid (severe) obesity due to excess calories) -Patient's BMI >30. Lifestyle modifications encouraged. Obesity is a pro- inflammatory state likely affecting above medical processes. Outpatient follow up. -BMI 40 13. Encounter for deep vein thrombosis (DVT) prophylaxis (Z29.9: Encounter for prophylactic measures, unspecified) -Lovenox Orders: furosemide, 20 mg = 2 mL, Injection, IV Push, BID, Routine, Start date 01/05/24 9:00:00 EDT, 01/05/24 8:28:00 EDT methylPREDNISolone, 40 mg = 1 mL, Injection, IV Push, q8hr, Routine, Start date 01/05/24 9:00:00 EDT, 01/05/24 8:27:00 EDT Consult to Pulmonology Echo Transthoracic Complete Flutter Valve Incentive Spirometry Sputum Culture Extracted from: Title:Admission H & P Author:Andrea DAMON DO Date:01/04/24 1. Acute hypoxic respiratory failure (J96.01: Acute respiratory failure with hypoxia) Suspect secondary to below however note #3 below under edema question component of volume overload. Will provide supplemental oxygen. Should patient not have an adequate response to treatment below can consider consultation with pulmonology. Note patient does have a misdraw hand Dr. Del Rio and was last seen on 03 December Ordered: levofloxacin, 750 mg = 1 tab(s), Tab, Oral, Once, Stop date 01/05/24 9:00:00 EDT, Routine, Start date 01/05/24 9:00:00 EDT, 01/05/24 9:00:00 EDT 2. Asthma exacerbation (J45.901: Unspecified asthma with (acute) exacerbation) Patient has had recurrent exacerbations. Patient states she has struggled with dyspnea for the last 3 weeks. She had been treated as suggested above initially with Zithromax on 24 December after completing a course of Cipro (started for skin infection after skin biopsy) started on the before being switched to doxycycline on the due to no improvement in symptoms. Note patient had been placed on a prednisone taper with some slight improvement before seen in the emergency department on 28 December after which she was started on Levaquin. She is scheduled to finish her last dose tomorrow. Note patient was seen by her primary care physician on 30 November was given an intramuscular dose of Kenalog. Patient did state that she was experiencing some improvement until today where her symptoms worsened. Differential includes environmental influences (note she had recently established with Dr. Hernandez as an foil spinner who is warming some test for her) though note no eosinophils versus inflammatory (reflux ) or infectious influences with her immunosuppression on Rinvoq. Unlikely side effect of medication ?hypersensitivy to meds (she has no eosinophilia, no vasculitic rash). Will hold Celebrex for now. Note also below will complete her course of Levaquin with her last dose scheduled for tomorrow. With elevated white cell count will check inflammatory markers monitor temperature curve. Will initiate Solu-Medrol though at a moderate dose (after receives initial dose change timing so that is not close to evening affecting sleep), continue albuterol and as she is on Spiriva at home Atrovent med nebs. Will continue Singulair note reconciliation suggest she is on a twice daily she is seen by both pulmonology and mass spectrometry specialist. In the event this represents acute bronchitis we will add Mucinex to assist with expectoration of mucus. Ordered: guaifenesin, 1,200 mg = 2 tab(s), Tab-ER, Oral, BID, Routine, Start date 01/05/24 9:00:00 EDT, 01/05/24 1:06:00 EDT methylPREDNISolone, 60 mg = 1.5 mL, Injection, IV Push, q12hr, Routine, Start date 01/05/24 2:00:00 EDT, 01/05/24 1:06:00 EDT C-Reactive Protein 3. Edema (R60.9: Edema, unspecified) Certainly weight gain and edema can be secondary to prednisone however with above and recurrent presentations with acute asthma exacerbation we will rule out a component of volume overload by given a one-time dose of Lasix. Note patient's blood pressure when she presented was 191/127. Echocardiogram 2021 demonstrated normal systolic function but did suggest stage I diastolic dysfunction. Patient did have a greater than expected response to diuretics can consider repeating an echocardiogram. For now we will limit fluids and salt Ordered: B-Type Natriuretic Peptide 4. History of pulmonary embolism (Z86.711: Personal history of pulmonary embolism) Diagnosed in 2019 when she had COVID. She is no longer on anticoagulants. CTA demonstrated no evidence of pulmonary embolism 5. Chronic GERD (K21.9: Gastro-esophageal reflux disease without esophagitis) Continue her PPI. Patient does admit to prior esophageal dilations chart suggest she had a history of esophageal web. She states since being on prednisone she has had increased reflux with an exacerbation when she vomited earlier today. 6. Leukocytosis (D72.829: Elevated white blood cell count, unspecified) Suspect influence of steroids, patient does admit to some production of cough but it is scant thick but not green or brown. She has been on 3 different antibiotics recently and she is afebrile. Will check inflammatory markers in the a.m. Ordered: C-Reactive Protein 7. Hypertensive urgency (I16.0: Hypertensive urgency) Elevated blood pressure likely response to steroids in addition to the stress of illness.. Hydralazine. Zyrtec response to diuretic 8. Diabetes (E11.9: Type 2 diabetes mellitus without complications) Provide Humalog sliding scale while patient is on steroids. Patient denies any knowledge of blood sugars becoming excessively elevated with her recent burst of steroids. States her last hemoglobin A1c was 5.8 9. Rheumatoid arthritis (M06.9: Rheumatoid arthritis, unspecified) Followed by Dr. Aishwarya Fry is part of the [facility]. Has had a video conference with her 1 month ago. 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 Patient has been directed by her hazardous materials analyst to hold Rinvoq on antibiotics therefore she has not had for 3 weeks. If inflammatory markers are significantly elevated be mindful of rheumatologic influences and off Rinvoq as well 10. Hypothyroidism (E03.9: Hypothyroidism, unspecified) Continue thyroid supplementation with weight gain though more rapid than I would expect will check thyroid function studies 11. Morbid obesity (E66.01: Morbid (severe) obesity due to excess calories) With multiple comorbidities patient would benefit from weight loss with her burst of steroids limitation activity because of [place] challenges this would certainly be difficult for her 12. Encounter for deep vein thrombosis (DVT) prophylaxis (Z29.9: Encounter for prophylactic measures, unspecified) Lovenox subcutaneously especially with a prior history of pulmonary embolism. As her weight is just over 40 kg with a prior history of PE will order Lovenox subcutaneously 40 mg twice daily Orders: acetaminophen, 650 mg = 2 tab(s), Tab, Oral, q6hr PRN Pain, Routine, Start date 01/05/24 1:00:00 EDT, 01/05/24 1:00:00 EDT albuterol, 2.5 mg, 3 mL, Soln-Inh, Inhalation, q2hr PRN Shortness of breath or wheezing, Routine, Start date 01/05/24 0:58:00 EDT albuterol-ipratropium, 3 mL, Soln-Inh, Inhalation, QID, Routine, Start date 01/05/24 8:00:00 EDT enoxaparin, 40 mg = 0.4 mL, Injection, SubCutaneous, BID for 30 day(s), Stop date 02/04/24 8:59:00 EDT, Routine, Start date 01/05/24 9:00:00 EDT, 01/05/24 1:00:00 EDT glucose, 50 mL, Soln-IV, IV Push, Once PRN Blood glucose, Routine, Start date 01/05/24 1:09:00 EDT hydrALAZINE, 10 mg = 0.5 mL, Injection, IV Push, q6hr PRN Other (see comment), Routine, Start date 01/05/24 1:00:00 EDT, 01/05/24 1:00:00 EDT insulin lispro, 0-10 Unit(s), Injection-Insulin, SubCutaneous, QIDACHS, Routine, Start date 01/05/24 7:30:00 EDT levothyroxine, 137 mcg = 1 tab(s), Tab, Oral, Daily, Routine, Start date 01/05/24 6:30:00 EDT, 01/05/24 0:54:00 EDT montelukast, 10 mg = 1 tab(s), Tab, Oral, BID, Routine, Start date 01/05/24 0:56:00 EDT, 01/05/24 0:56:00 EDT ondansetron, 4 mg = 2 mL, Injection, IV Push, q6hr PRN Nausea, Routine, Start date 01/05/24 1:00:00 EDT, 01/05/24 1:00:00 EDT pantoprazole, 40 mg = 1 tab(s), Tab-DR, Oral, Daily, Routine, Start date 01/05/24 9:00:00 EDT Basic Metabolic Panel Cardiac Monitoring CBC w/ Auto Diff Diabetic/Calorie Control Diet Hypoglycemia Protocol Responsive Patient Hypoglycemia Protocol Unresponsive Patient Notify Provider Vital Signs Notify Provider Vital Signs Oxygen Protocol Place in Status Resuscitation Status - Full Routine Capillary Glucose POC TSH With T4fr Reflex Up ad Cece Vital Signs Weight Patient is admitted as a general inpatient with the anticipation she will require greater than 2 midnight stay Extracted from: Title:ED Note Author:Keisha Garsia PA-C te:01/04/24 Acidosis, lactic (E87.20: Ac idosis, unspecified) Asthma exacerbation (J45.901: Unspecified asthma with (acute) exacerbation) CAP (community acquired pneumonia) (J18.9: Pneumonia, unspecified organism) Hypoxia (R09.02: Hypoxemia) Orders: albuterol-ipratropium, 3 mL, Soln-Inh, NEB, Once, Stop date 01/04/24 16:30:00 EDT, STAT, Start date 01/04/24 16:30:00 EDT albuterol-ipratropium, 3 mL, Soln-Inh, NEB, Once, Stop date 01/04/24 17:20:00 EDT, STAT, Start date 01/04/24 17:20:00 EDT B-Type Natriuretic Peptide Basic Metabolic Panel Blood Culture Charcoal Blood Culture Charcoal Blood Gas Art, with Lytes, Gluc, Lact CBC w/ Auto Diff CTA Chest ED Cardiac Monitoring ED Physician consult Hospitalist for continued care eGFR Extra SST Tube Lactic Acid Lactic Acid Oxygen Saturation Oxygen Therapy PT & PTT Saline Lock Insert Troponin 0 Hr. Troponin 1 Hr. Future Scheduled Tests Laboratory* CBC w/ Auto Diff 05/10/23 [facility]07-09-2024 Hospital Discharge instructions Patient Education 01/07/2024 11:41:28 Asthma Attack Prevention, Adult Asthma Attack Prevention, Adult Although you may not be able to change the fact that you have asthma, you can take actions to prevent episodes of asthma (asthma attacks). How can this condition affect me? Asthma attacks (flare ups) can cause trouble breathing, high-pitched whistling sounds when you breathe, most often when you breathe out (wheeze), and coughing. They may keep you from doing activitiesyou like to do. What can increase my risk? Coming into contact with things that cause asthma symptoms (asthma triggers) can put you at risk for an asthma attack. Common asthma triggers include: Things you are allergic to (allergens), such as: ?Dust mite and cockroach droppings. ?Pet dander. ?Mold. ?Pollen from trees and grasses. ?Food allergies. This might be a specific food or added chemicals called sulfites. Irritants, such as: ?Weather changes including very cold, dry, or humid air. ?Smoke. This includes campfire smoke, air pollution, and tobacco smoke. ?Strong odors from aerosol sprays and fumes from perfume, candles, and household personal health coach. Other triggers, such as: ?Certain medicines. This includes NSAIDs, such as ibuprofen and aspirin. ?Viral respiratory infections (colds), including runny nose (rhinitis) or infection in the sinuses (sinusitis). ?Activity, including exercise, laughing, or crying. ?Not using inhaled medicines (corticosteroids) as told. What actions can I take to prevent an asthma attack? Stay healthy. Stay up to date on all immunizations as told by your health care provider, including the yearly flu (influenza) vaccine and pneumonia vaccine. Many asthma attacks can be prevented by carefully following your written asthma action plan. Follow your asthma action plan Work with your health care provider to create a written asthma action plan. This plan should include: A list of your asthma triggers and how to avoid or reduce them. A list of symptoms that you may have during an asthma attack. Information about which medicine to take, when to take the medicine, and how much of the medicine to take. Information to help you understand your peak flow measurements. Daily actions that you can take to prevent (control) your asthma symptoms. Contact information for your health care providers. If you have an asthma attack, act quickly. Follow the emergency steps on your written asthma actionplan. This may prevent you from needing to go to the hospital. Monitor your asthma. To do this: Use your peak flow meter every morning and every evening for 2 3 weeks or as told by your health care provider. ?Record the results in a journal. ?A drop in your peak flow numbers on one or more days may mean that you are starting to have an asthma attack, even if you are not having symptoms. When you have asthma symptoms, write them down in a journal. Write down in your journal how often you need to use your fast-acting rescue inhaler. If you are using your rescue inhaler more often, it may mean that your asthma is not under control. Talk with your health care provider about adjusting your asthma treatment plan to help you prevent future asthma attacks and gain better control of your condition. Lifestyle Avoid or reduce contact with known outdoor allergens by staying indoors, keeping windows closed, and using air conditioning when pollen and mold counts are high. Do not use any products that contain nicotine or tobacco. These products include cigarettes, chewing tobacco, and vaping devices, such as e-cigarettes. If you need help quitting, ask your health careprovider. If you are overweight, consider a weight-loss plan. Find ways to cope with stress and your feelings, such as mindfulness, relaxation, or breathing exercises. Ask your health care provider if a breathing exercise program (pulmonary rehabilitation) may be helpful to control symptoms and improve your quality of life. Medicines Take skyi-vwy-bbjnyur and prescription medicines only as told by your health care provider. Do not stop taking your medicine and do not take less medicine even if you start to feel better. Let your health care provider know: ?How often you use your rescue inhaler. ?How often you have symptoms when you are taking your regular medicines. ?If you wake up at night because of asthma symptoms. ?If you have more trouble with your breathing when you exercise. Activity Do your normal activities as told by your health care provider. Ask your health care provider what activities are safe for you. Some people have asthma symptoms or more asthma symptoms when they exercise. This is called exercise-induced bronchoconstriction (EIB). If you have this problem, talk with your health care provider about how to manage EIB. Some tips to follow include: ?Use your fast-acting inhaler before exercise. ?Exercise indoors if it is very cold, humid, or the pollen and mold counts are high. ?Warm up and cool down before and after exercise. ?Stop exercising right away if your asthma symptoms start or get worse. Where to find more information Asthma and Allergy Foundation of [place]: www.aafa.org Centers for Disease Control and Prevention: www.cdc.gov [place] [employer]: www.lung.org National Heart, Lung, and Blood [place]: www.nhlbi.nih.gov World Health Organization: www.who.int Get help right away if: You have followed your written asthma action plan and your symptoms are not improving. Summary Asthma attacks (flare ups) can cause trouble breathing, high-pitched whistling sounds when you breathe, most often when you breathe out (wheeze), and coughing. Work with your health care provider to create a written asthma action plan. Do not stop taking your medicine and do not take less medicine even if you are feeling better. Do not use any products that contain nicotine or tobacco. These products include cigarettes, chewing tobacco, and vaping devices, such as e-cigarettes. If you need help quitting, ask your health careprovider. This information is not intended to replace advice given to you by your health care provider. Make sure you discuss any questions you have with your health care provider. Document Revised: 12/13/2021 Document Reviewed: 12/13/2021 [employer] Patient Education 2022 [email or web address]. Follow Up Care 01/04/2024 15:55:45 With:Berry Canales [facility], MED Address: When:3 to 5 days Comments:Call for followup appointment With:Maximino HDZ, [employer] Address: When:2 to 4 weeks Comments:Call for followup appointment With:LELO DEL RIO DO Address: When:1 week Comments:Call for followup appointment [facility]07-09-2024 NoteProgress Note-Physician Basic Information Patient with history of asthma comes in with shortness of breath and edema, response to diuretics. Subjective Patient is doing better today less short of breath Objective Vitals & Measurements T: 36.5 ?C(Oral) TMIN: 36.5 ?C(Oral) TMAX: 36.7 ?C(Oral) HR: 107(Monitored) RR: 18 BP: 131/81 SpO2:93% WT: 89.3 kg Intake & Output This visit (24 hour periods starting at 07:00 EDT) 01/06/24 * 01/05/24 01/04/24 Total Summary Intake mL 6 7 5.5 Output mL 1,000 2,540 250 Fluid Balance -994 -2,533 -244.5 Intake (2) furosemide mL 4 4 4 methylPREDNISolone mL 2 3 1.5 Total 6 7 5.5 Output (1) Urine Voided mL 1,000 2,540 250 Total 1,000 2,540 250 Counts (0) * This column has not completed the indicated time period. Physical Exam General: alert, no acute distress Neck: Supple, noJVD nocarotid bruit Cardiovascular: regular rate and rhythm, no murmur normal peripheral perfusion Respiratory: Lungs CTA, respirations non labored Extremities: no edema Neurological: oriented x 4, LOC appropriate for age, sensation equal & normal bilaterally, speech normal Skin: Warm, dry, intact- no rash or concerning lesions Lab Results WBC: 16.6 E9/L High (01/06/24 05:50:00) RBC: 4.4 E12/L (01/06/24 05:50:00) HGB: 12.9 gm/dL (01/06/24 05:50:00) Hct: 38.7 % (01/06/24 05:50:00) MCV: 87.4 fL (01/06/24 05:50:00) MCH: 29.2 pg (01/06/24 05:50:00) MCHC: 33.4 gm/dL (01/06/24 05:50:00) RDW: 16 % High (01/06/24 05:50:00) Platelet: 239 E9/L (01/06/24 05:50:00) MPV: 7.4 fL (01/06/24 05:50:00) Neutro Auto: 92.1 % High (01/06/24 05:50:00) Lymph Auto: 5.1 % Low (01/06/24 05:50:00) Yates Auto: 2.7 % Low (01/06/24 05:50:00) Eos Auto: 0 % (01/06/24 05:50:00) Basophil Auto: 0.1 % (01/06/24 05:50:00) Neutro Absolute: 15.3 E9/L High (01/06/24 05:50:00) Lymph Absolute: 0.8 E9/L Low (01/06/24 05:50:00) Yates Absolute: 0.4 E9/L (01/06/24 05:50:00) Eos Absolute: 0 E9/L (01/06/24 05:50:00) Basophil Absolute: 0 E9/L (01/06/24 05:50:00) Glucose Lvl: 183 mg/dL (01/06/24 05:50:00) BUN: 28 mg/dL High (01/06/24 05:50:00) Creatinine: 0.7 mg/dL (01/06/24 05:50:00) eGFR: 96 mL/min/1.73 m2 (01/06/24 05:50:00) BUN/Creat Ratio: 40 High (01/06/24 05:50:00) Sodium Lvl: 137 mmol/L (01/06/24 05:50:00) Potassium Lvl: 3.8 mmol/L (01/06/24 05:50:00) Chloride: 99 mmol/L Low (01/06/24 05:50:00) CO2: 29 mmol/L (01/06/24 05:50:00) AGAP: 13 mEq/L (01/06/24 05:50:00) Calcium Lvl: 8.1 mg/dL Low (01/06/24 05:50:00) BNP: 6 pg/mL (01/06/24 05:50:00) Glucose Cap: 196 mg/dL High (01/06/24 20:27:00) POC Device SN: [id number] (01/06/24 20:27:00) POC User ID: [id number] (01/06/24 20:27:00) POC Username: PITA THURSTON (01/06/24 20:27:00) Adenovirus: Not Detected (01/06/24 13:09:00) B. holmesii: Not Detected (01/06/24 13:09:00) B. parapertussis/bronchiseptica: Not Detected (01/06/24 13:09:00) B. pertussis: Not Detected (01/06/24 13:09:00) Human Metapneumovirus: Not Detected (01/06/24 13:09:00) Influenza A: Not Detected (01/06/24 13:09:00) Influenza A (subtype H1): Not Detected (01/06/24 13:09:00) Influenza A (subtype H3): Not Detected (01/06/24 13:09:00) Influenza B: Not Detected (01/06/24 13:09:00) Parainfluenza 1: Not Detected (01/06/24 13:09:00) Parainfluenza 2: Not Detected (01/06/24 13:09:00) Parainfluenza 3: Not Detected (01/06/24 13:09:00) Parainfluenza 4: Not Detected (01/06/24 13:09:00) Rhinovirus: Not Detected (01/06/24 13:09:00) RSV A: Not Detected (01/06/24 13:09:00) RSV B: Not Detected (01/06/24 13:09:00) Assessment/Plan Echocardiogram does not show significant issues in fact normal left ventricular function and normalestimated PA pressure. Patient is responded well to treatment I think she is at risk for discharge and follow-up as an outpatient. Sign off cardiology. 1. Acute hypoxic respiratory failure, (J96.01: Acute respiratory failure with hypoxia)Acute respiratory failure with hypoxia 2. Asthma exacerbation, (J45.901: Unspecified asthma with (acute) exacerbation)Unspecified asthma with (acute) exacerbation 3. Elevated white blood cell count, unspecified, (D72.829: Elevated white blood cell count, unspecified)Leukocytosis 4. Edema, (R60.9: Edema, unspecified)Edema, unspecified 5. Chest pain, unspecified, (R07.9: Chest pain, unspecified)Exertional chest pain 6. Hypertensive urgency, (I16.0: Hypertensive urgency)Hypertensive urgency 7. History of pulmonary embolism, (Z86.711: Personal history of pulmonary embolism)Personal historyof pulmonary embolism 8. Chronic GERD, (K21.9: Gastro-esophageal reflux disease without esophagitis)Gastro-esophageal reflux disease without esophagitis 9. Diabetes, (E11.9: Type 2 diabetes mellitus without complications)Type 2 diabetes mellitus without complications 10. Rheumatoid arthritis, (M06.9: Rheumatoid arthritis, unspecified)Rheumatoid arthritis, unspecified 11. Hy (more content not included)...[facility]:Result Comment: Electronically Signed By: Maximino HDZ, [employer]\.br\Date and Time Signed: 01/07/24 00:04 [id number] NoteConsultation Note Chief Complaint SOB, worsening cough Reason for Consultation Acute hypoxemic respiratory failure History of Present Illness Pt is a 63y F with past medical history significant for severe persistent asthma (no PFTs on file, follows w/ Dr. Samsa), PE not on AC, chronic HFpEF, RA, NIDDM, hypothyroidism, and GERD who presented to the ED on 01/03 with complaints of worsening SOB and cough for 1 week. Pt reports she developed aslightly productive cough with yellowish sputum about 1 week ago. She also reports some increasing SOB over that time as well as increasing BLE edema. Pt states she has chronic BLE edema but it has been worsening over the past 1-2 weeks. She also reports intermittent chills. She denies any chest pain, abdominal pain, nausea, vomiting, or diarrhea currently. Of note, pt presented to the ED on 12/28and was diagnosed with pneumonia and discharged with doxycycline and prednisone. Her symptoms worsened so she presented to the ED again for evaluation. In the ED, the pt presented tachycardic but HDSand not hypoxemic on RA. Laboratory workup revealed WBC 18.9, lactate 2.7, but otherwise unremarkable. CTA chest obtained which did not reveal any PE or acute infiltrates. Pt was started on steroids, bronchodilators, and admitted to the hospitalist service for further management. PCCM consulted to assist in management of the pt's acute asthma exacerbation. Review of Systems 12 point review of systems performed with patient, pertinent positives and negatives stated in HPI. Physical Exam Vitals & Measurements T: 36.7 ?C(Oral) TMIN: 36.3 ?C(Oral) TMAX: 36.7 ?C(Oral) HR: 116(Monitored) RR: 20 BP: 138/88 SpO2:94% WT: 89.3 kg General: No acute distress Skin: Warm, dry Head: Atraumatic, normocephalic Neck: Trachea midline, no adenopathy, no tenderness Eye: PERRL, sclera anicteric ENMT: Moist mucous membranes Cardiovascular: Regular rate and rhythm. No murmurs, rubs, or gallops. 2+ BLE edema. Respiratory: Diminished w/ scattered rhonchi b/l. No wheezing. No stridor. No accessory muscle use. Chest wall: No deformity Gastrointestinal: Soft, non-tender, non-distended Back: No tenderness Extremities: No deformity Neurological: Awake and alert. Following commands. No focal deficit appreciated. Psychiatric: Cooperative. Affect appropriate for age. Images IMPRESSION: NO EVIDENCE OF PULMONARY EMBOLI OR ACTIVE CARDIOPULMONARY DISEASE. EXAM: CTA Chest DATE: 01/04/2024 5:15 PM CLINICAL HISTORY: Shortness of breath (SOB). COMPARISON: None available TECHNIQUE: Spiral enhanced images were obtained of the chest after the infusion of approximately 75 mL of Isovue 370 contrast with pulmonary artery CTA protocol. Routine and volume rendered images were performed on a three-dimensional workstation. All CT scans at this facility use dose modulation, iterative reconstruction, and/or weight based dosing when appropriate to reduce radiation dose to as low as reasonably achievable. Unless otherwise stated, incidental findings identified in this report do not require routine follow-up imaging. FINDINGS: Pulmonary arteries: Limited pulmonary arterial bolus concentration. Normal in caliber without suspicious filling defects identified to suggest significant pulmonary emboli. Thoracic aorta: Normal in caliber with minimal to mild calcified atherosclerotic plaquing. There is no dissection. Heart: Not enlarged. Coronary artery calcifications and/or stents are present. No significant pericardial effusion. Mediastinum and lymph nodes: No pathologically enlarged mediastinal, hilar, or axillary lymph nodes. Lungs and pleura: No focal consolidation, pleural effusion, or pneumothorax. Mild dependent atelectasis. Thyroid: Unremarkable. Esophagus: Unremarkable. Musculoskeletal: No acute osseous findings. Chronic marked T6 and moderate T9 compression fractures with degenerative endplate changes. Upper abdomen: Noncontributory. Ordering Provider: Keisha Garsia Assessment/Plan 1. Acute hypoxic respiratory failure (J96.01: Acute respiratory failure with hypoxia) 2/2 acute asthma exacerbation w/ some mucous plugging +/- fluid overload H/o severe persistent asthma Never smoker Plan: - Pt has been weaned to RA - Offer supplemental O2 to maintain sats 92-96% - Continue bronchodilators, mucinex, and singulair --> will add mucomyst - Continue solumedrol 40mg q8h - Rapid COVID/Flu neg --> Send RVP - BNP is unremarkable but pt has significant BLE edema which she states is chronic but increased from her normal --> agree with diuresis - CTA neg for PE or acute infiltrates --> agree with monitoring off abx for now - Pt reports a significant h/o GERD --> will increase PPI to BID - Encourage IS and OOB VTE ppx: Lovenox GI ppx: PPI BID Orders: Add on Test Respiratory Panel by PCR Problem List/Past Medical History Ongoing Adult BMI 38.0-38.9 kg/sq m Allergic rhin (more content not included)...[facility] HospitalComment on above:Result Comment: Electronically Signed By: Sarah HDZ, Gurpreet Muniz\.dusty\Date and Time Signed: 01/06/24 14:05 [id number] NoteEchocardiology Procedure Exam Date/Time Accession # Ordering Echo Transthoracic 01/06/2024 11:19 EDT [id number] Zoe Stanton CNP CPT code [id number] Reason for Exam (Echo Transthoracic Complete) Shortness of breath (SOB) Report [facility] [address] [place] [address] Adult Echocardiogram Report Name: CAROLINA GUTIERREZ Study Date: 01/06/2024 09:52 AM BP: 143/88 mmHg Patient Location: [address] [place] [address] HR: 114 : 1960 Gender: Female Height: 58.5 in Age: 63 yrs Ethnicity: T Weight: 198 lb Reason For Study: Shortness of breath (SOB) BSA: 1.8 m2 History: DM, Asthma, Syncope, Pulmonary embolism, Rheumatoid arthritis Ordering Physician: Serge Stanton Performed By: Azra Vilchis, [facility] Interpretation Summary Ejection Fraction = 60-65%. Normal LV and RV. No significant valve disease. Normal estimated PA pressure. Impaired diastolic relaxation. No changes from 2021. Procedure A complete two-dimensional transthoracic echocardiogram was performed (2D, M- mode, spectral and color flow Doppler). Study quality is good. Left Ventricle The left ventricle is normal in size. mild left ventricular hypertrophy. Ejection Fraction = 60-65%. The left ventricular wall motion is normal. Grade I diastolic dysfunction, (abnormal relaxation pattern). Left Atrium The left atrial size is normal. Right Atrium Right atrial size is normal. Echocardiology Report Right Ventricle The right ventricular systolic function is normal. The right ventricle is normal size. The right ventricular wall motion is normal. Aortic Valve The aortic valve is trileaflet. No aortic regurgitation. There is no aortic stenosis. Mitral Valve The mitral valve is normal in structure and function. There is no mitral regurgitation noted. No mitral valve stenosis. Tricuspid Valve Structurally normal tricuspid valve. No evidence of tricuspid regurgitation. Right ventricular systolic pressure is normal. Pulmonic Valve No evidence of stenosis. There is no pulmonic valve regurgitation. Arteries The aortic root is normal in size. Normal ascending aorta. Pulmonary artery diameter is normal. Venous The inferior vena cava is normal in size, and collapses normally with respiration. Effusion There is no pericardial effusion. MMode/2D Measurements & Calculations RVDd: 3.0 cm LVIDd: 3.6 cm FS: 30.1 % Ao root diam: 2.8 cm IVSd: 1.5 cm LVIDs: 2.5 cm EDV(Teich): 54.6 ml LVPWd: 1.2 cm ESV(Teich): 22.7 ml Ao root area: 6.0 cm2 EF(Teich): 58.3 % LA dimension: 3.2 cm asc Aorta Diam: 2.8 cm LVLd ap4: 7.5 cm EDV(MOD-sp2): 59.0 ml SV(MOD-sp4): 42.5 ml EDV(MOD-sp4): 77.1 ml ESV(MOD-sp2): 26.5 ml LVLs ap4: 6.5 cm EF(MOD-sp2): 55.1 % ESV(MOD-sp4): 34.6 ml EF(MOD-sp4): 55.1 % TAPSE: 2.2 cm IVC Diam: 1.4 cm RVIDd/LVIDd: 0.82 EF (MOD-bp): 54.7 % LA Vol Index: 18.7 ml/m2 Doppler Measurements & Calculations MV E max juancarlos: 59.2 cm/sec MV dec time: 0.11 sec Ao V2 max: 118.0 cm/sec LV V1 max P.3 mmHg MV A max juancarlos: 103.3 cm/sec Ao max P.6 mmHg LV V1 mean P.0 mmHg MV E/A: 0.57 Ao V2 mean: 82.5 cm/sec LV V1 max: 115.0 cm/sec Lat Peak E' Juancarlos: 6.7 cm/sec Ao mean P.0 mmHg LV V1 mean: 80.5 cm/sec Echocardiology Report E/E' Lat: 8.8 Ao V2 VTI: 18.7 cm LV V1 VTI: 16.3 cm Med Peak E' Juancarlos: 6.2 cm/sec E/E' Med: 9.5 TR max juancarlos: 265.0 cm/sec RAP systole: 3.0 mmHg AV VR: 0.97 TR max P.1 mmHg RVSP(TR): 31.1 mmHg FINAL REPORT Dictated: 01/06/2024 9:52 am Kodak Stanton MD Signed (Electronic Signature): 01/06/2024 12:07 pm Signed by: Kodak Stanton MD Transcribed by: [facility] Technologist: [facility]07[facility]08[facility]2024 Note Progress Note-Physician Basic Information 63-year-old female with asthma, hypertension, history of PE, GERD, diabetes, rheumatoid arthritis, hypothyroid, morbid obesity admitted with acute hypoxic respiratory failure secondary to asthma exacerbation, volume overload Assessment/Plan 1. Acute hypoxic respiratory failure (J96.01: Acute respiratory failure with hypoxia) 2/2 asthma exacerbation, volume overload No home 02 use -Initial ABG: pH 7.470 CO2 36.2 pO2 59.6 HCO3 26.7 + SOB/LEROY, + conversational dyspnea -Chest CTA: No acute cardiopulm process -Consult pulm - pending -Supplemental O2 -> on RA -See below- IV steroids and diuresis as tolerated 2. Asthma exacerbation (J45.901: Unspecified asthma with (acute) exacerbation) Treated outpatient with steroids and Levaquin for questionable pneumonia, no improvement Home regimen for asthma: DuoNebs/Proair, Spiriva Respimat 1.25, Singulair -IV steroids: Solu-medrol 40 mg Q8H -Duonebs scheduled, PRN albuterol -Mucinex, Pulmonary toilet -Consult pulm pending -She had been treated for suspected PNA as out patient, chest CTA negative for such- she has been ordered her final dose of oral Levaquin today -Check sputum cx -> negative 3. Leukocytosis (D72.829: Elevated white blood cell count, unspecified) Secondary to above, with prolonged steroid, RA on Rinvoq -Trend CBC, trending downward 4. Edema (R60.9: Edema, unspecified) BNP normal range, Chest CTA without cardiac decompensation -> clinically she appears volume overloaded with 10 lb weight gain in past 2-3 weeks Likely related to steroids, but good response to IV diuresis -IV lasix 20 mg BID, excellent response -Update echocardiogram, hx of diastolic dysfunction -> pending 5. Exertional chest pain (R07.9: Chest pain, unspecified) ECG non-acute, troponin trend has been negative -Echo and stress testing in 2021 negative [place] [place] [facility] - > check echo 6. Hypertensive urgency (I16.0: Hypertensive urgency) Present on admit with improved BP now -BP has stabilized 7. History of pulmonary embolism (Z86.711: Personal history of pulmonary embolism) History of PE, no terminal carman AC -Chest CTA in ER negative 8. Chronic GERD (K21.9: Gastro-esophageal reflux disease without esophagitis) -PPI 9. Diabetes (E11.9: Type 2 diabetes mellitus without complications) -AccuCheck AC/HS with SSI 10. Rheumatoid arthritis (M06.9: Rheumatoid arthritis, unspecified) -Prescribed Rinvoq but has been off with acute illness 11. Hypothyroidism (E03.9: Hypothyroidism, unspecified) -levothyroxine 137 mcg QD -TSH low, T4 high -> reduced dose to 112 mcg QD and needs repeat TFTs in 6 weeks 12. Morbid obesity (E66.01: Morbid (severe) obesity due to excess calories) -Patient's BMI >30. Lifestyle modifications encouraged. Obesity is a pro- inflammatory state likely affecting above medical processes. Outpatient follow up. -BMI 40 13. Encounter for deep vein thrombosis (DVT) prophylaxis (Z29.9: Encounter for prophylactic measures, unspecified) -Lovenox Orders: furosemide, 20 mg = 2 mL, Injection, IV Push, BID, Routine, Start date 01/05/24 9:00:00 EDT, 01/05/24 8:28:00 EDT methylPREDNISolone, 40 mg = 1 mL, Injection, IV Push, q8hr, Routine, Start date 01/05/24 9:00:00 EDT, 01/05/24 8:27:00 EDT [facility] [place] Spiriva Respimat 1.25 mcg/inh inhalation aerosol, Inhalation, Daily, Routine, Start date 01/06/24 9:00:00 EDT Consult to Pulmonology Echo Transthoracic Complete Flutter Valve Incentive Spirometry Sputum Culture Responding well to IV lasix, IV steroids/nebs, await echocardiogram and specialists' recommendations FULL CODE Subjective Less wheezing, edema is much better. BP normotensive, I/Os in negative fluid balance, weight down. She reports breathing is easier, no further chest pain. Review of Systems Additional ROS info: Except as noted in the above Review of Systems and in the History of Present Illness all other systems have been reviewed and are negative or noncontributory Objective Vitals & Measurements T: 36.7 ?C(Oral) TMIN: 36.3 ?C(Oral) TMAX: 36.7 ?C(Oral) HR: 116(Monitored) RR: 16 BP: 138/88 SpO2:94% WT: 89.3 kg Intake & Output This visit (24 hour periods starting at 07:00 EDT) 01/06/24 * 01/05/24 01/04/24 Total Summary Intake mL 3 7 5.5 Output mL -- 2,540 250 Fluid Balance 3 -2,533 -244.5 Intake (2) furosemide mL 2 4 4 methylPREDNISolone mL 1 3 1.5 Total 3 7 5.5 Output (1) Urine Voided mL -- 2,540 250 Total -- 2,540 250 Counts (0) * This column has not completed the indicated time period. Physical Exam General: Obese adult female, alert, calm, NAD Eyes: PERRLA. intact EOM HEENT: Mucous membrane pink, moist, Normal tongue. Neck: supple, no JVD, no bruit Lungs: on RA, no increased work of breathing, lungs with better air movement, less wheeze, no rhonchi today, no rales Car (more content not included)...[facility] above: Result Comment: Electronically Signed By: Serge Stanton CNP\.br\Date and Time Signed: 01/06/24 09:56 EDT\.br\Electronically Co-Signed By: Lalo Boyd DO\.br\Date and Time Co-Signed: 01/06/24 10:49 [id number] Note Microbiology PROCEDURE: Blood Culture Charcoal [R1] SOURCE: Blood BODY SITE: Arm R COLLECTED DATE/TIME: 12/29/2023 20:45 EDT RECEIVED DATE/TIME: 12/29/2023 22:50 EDT START DATE/TIME: 12/29/2023 22:50 EDT FREE TEXT SOURCE: Peripheral vein site #1 Isaura SAMANO, Edgar Barrera. Isaura SAMANO, Edgar Barrera. FINAL REPORTS Final Report [] Verified Date/Time: 01/06/2024 00:00 EDT No growth at 7 days. Performing Locations R1: This test was performed at: [place], [address] [place] [address], [id number] , [place], QppilwGood Samaritan HospitalComment on above:Performed By: #### [id number] #### [facility] [address] [place] [address] [id number] NoteConsultation Note Chief Complaint SOB, worsening cough Reason for Consultation Dyspnea History of Present Illness 63-year-old female with history of syncope and negative cardiac workup in 2021. She had a stress test and echocardiogram which were essentially normal. She comes in now with what was felt to be asthma exacerbation. She is short of breath had worsening cough but also had lower extremity swelling andconcern for congestive heart failure was brought up by hospitalist team. Patient did have some chest discomfort as well in the upper area of her chest associated with the shortness of breath. It was nonexertional. There was no radiation. Review of Systems Constitutional: no fever, no sweats, no weakness Skin: no rash, no lesions, nobruising/petechiae ENMT: no sore throat, no congestion, no hoarseness Respiratory: Yes shortness of breath, yes cough, no orthopnea, yes wheezing Cardiovascular: Yes chest pain, no palpitations, yes edema Gastrointestinal: no nausea, no vomiting, no diarrhea, no GI bleeding Genitourinary: no anuria/oliguria no hematuria Musculoskeletal: no back pain, no trauma Neurologic: no headache, no dizziness, no numbness, no weakness Psychiatric: no sleeping problems, no irritability, no anxiety/depression. Heme/Lymph: no bleeding tendency, no bruising tendency Allergy/Immunologic: no recurrent infections, no impaired immunity Additional ROS info: Except as noted in the above Review of Systems and in the History of Present Illness all other systems have been reviewed and are negative or noncontributory. Physical Exam Vitals & Measurements T: 36.6 ?C(Axillary) TMIN: 36.3 ?C(Oral) TMAX: 36.7 ?C(Oral) HR: 112(Monitored) RR: 20 BP: 129/85 SpO2: 94% HT: 149.86 cm WT: 90.4 kg General: alert, no acute distress Skin: warm, dry intact Head: atraumatic, normocephalic Neck: Trachea midline, no JVD, no bruit Eye: normal conjunctiva, sclera clear ENMT: oral mucosa moist Cardiovascular: regular rate and rhythm, nomurmur normal peripheral perfusion Respiratory: Lungs CTA, respirations non labored Chest wall: no deformity. Gastrointestinal: soft, non distended, no tenderness, no guarding. Back: No tenderness, Normal ROM, Normal alignment. Extremities: no edema, no deformity, no trauma Neurological: oriented x 4, LOC appropriate for agesensation equal & normal bilaterally, speechnormal Psychiatric: cooperative, affect appropriate for age, normal judgement, normal psychiatric thoughts. Images EKG: Normal sinus rhythm with nonspecific ST-T wave changes and PVC Assessment/Plan 63-year-old female with upper respiratory symptoms possibly consistent with asthma. Concern howeverfor heart failure considering patient with edema and shortness of breath. BNP is not particularly high. Echocardiogram previously had normal LV function and PA pressure. We will repeat echocardiogramin the meantime gentle diuresis would be acceptable. She does of note have coronary artery calcium on CT of the chest. Further workup will depend on echocardiogram findings. Thank for the consult 1. Acute hypoxic respiratory failure (J96.01: Acute respiratory failure with hypoxia) 2. Asthma exacerbation (J45.901: Unspecified asthma with (acute) exacerbation) 3. Leukocytosis (D72.829: Elevated white blood cell count, unspecified) 4. Edema (R60.9: Edema, unspecified) 5. Exertional chest pain (R07.9: Chest pain, unspecified) 6. Hypertensive urgency (I16.0: Hypertensive urgency) 7. History of pulmonary embolism (Z86.711: Personal history of pulmonary embolism) 8. Chronic GERD (K21.9: Gastro-esophageal reflux disease without esophagitis) 9. Diabetes (E11.9: Type 2 diabetes mellitus without complications) 10. Rheumatoid arthritis (M06.9: Rheumatoid arthritis, unspecified) 11. Hypothyroidism (E03.9: Hypothyroidism, unspecified) 12. Morbid obesity (E66.01: Morbid (severe) obesity due to excess calories) 13. Encounter for deep vein thrombosis (DVT) prophylaxis (Z29.9: Encounter for prophylactic measures, unspecified) Problem List/Past Medical History Ongoing Adult BMI 38.0-38.9 kg/sq m Allergic rhinitis Anemia Annual physical exam Anti-citrullinated protein antibody detected Bilateral otitis media BMI 40.0-44.9, adult Bronchitis Chronic peripheral venous hypertension with lower extremity complication Chronic sinusitis Colitis Cough Derangement of knee Diverticular disease Esophageal web Exposure to COVID-19 virus Fluid level behind tympanic membrane of both ears Gastroesophageal reflux disease without esophagitis Hemorrhoids Hx of pulmonary embolus Hypothyroidism Hypoxemia Left lower lobe pneumonia Low hemoglobin Lung nodules Moderate asthma without complication Morbid obesity with BMI of 40.0-44.9, adult Nasal congestion Non-insulin dependent type 2 diabetes mellitus Obesity due to excess calories Oral thrush Pre-op exam Rheumatoid arthritis involving multiple sites wit (more content not included)... [facility] HospitalComment on above:Result Comment: Electronically Signed By: Maximino HDZ, Kodak Gan\.br\Date and Time Signed: 01/05/24 16:29 [id number] NoteConsultation Note Chief Complaint SOB, worsening cough Reason for Consultation Dyspnea History of Present Illness 63-year-old female with history of syncope and negative cardiac workup in 2021. She had a stress test and echocardiogram which were essentially normal. She comes in now with what was felt to be asthma exacerbation. She is short of breath had worsening cough but also had lower extremity swelling andconcern for congestive heart failure was brought up by hospitalist team. Patient did have some chest discomfort as well in the upper area of her chest associated with the shortness of breath. It was nonexertional. There was no radiation. Review of Systems Constitutional: no fever, no sweats, no weakness Skin: no rash, no lesions, nobruising/petechiae ENMT: no sore throat, no congestion, no hoarseness Respiratory: Yes shortness of breath, yes cough, no orthopnea, yes wheezing Cardiovascular: Yes chest pain, no palpitations, yes edema Gastrointestinal: no nausea, no vomiting, no diarrhea, no GI bleeding Genitourinary: no anuria/oliguria no hematuria Musculoskeletal: no back pain, no trauma Neurologic: no headache, no dizziness, no numbness, no weakness Psychiatric: no sleeping problems, no irritability, no anxiety/depression. Heme/Lymph: no bleeding tendency, no bruising tendency Allergy/Immunologic: no recurrent infections, no impaired immunity Additional ROS info: Except as noted in the above Review of Systems and in the History of Present Illness all other systems have been reviewed and are negative or noncontributory. Physical Exam Vitals & Measurements T: 36.6 ?C(Axillary) TMIN: 36.3 ?C(Oral) TMAX: 36.7 ?C(Oral) HR: 112(Monitored) RR: 20 BP: 129/85 SpO2: 94% HT: 149.86 cm WT: 90.4 kg General: alert, no acute distress Skin: warm, dry intact Head: atraumatic, normocephalic Neck: Trachea midline, no JVD, no bruit Eye: normal conjunctiva, sclera clear ENMT: oral mucosa moist Cardiovascular: regular rate and rhythm, nomurmur normal peripheral perfusion Respiratory: Lungs CTA, respirations non labored Chest wall: no deformity. Gastrointestinal: soft, non distended, no tenderness, no guarding. Back: No tenderness, Normal ROM, Normal alignment. Extremities: no edema, no deformity, no trauma Neurological: oriented x 4, LOC appropriate for agesensation equal & normal bilaterally, speechnormal Psychiatric: cooperative, affect appropriate for age, normal judgement, normal psychiatric thoughts. Images EKG: Normal sinus rhythm with nonspecific ST-T wave changes and PVC Assessment/Plan 63-year-old female with upper respiratory symptoms possibly consistent with asthma. Concern howeverfor heart failure considering patient with edema and shortness of breath. BNP is not particularly high. Echocardiogram previously had normal LV function and PA pressure. We will repeat echocardiogramin the meantime gentle diuresis would be acceptable. She does of note have coronary artery calcium on CT of the chest. Further workup will depend on echocardiogram findings. Thank for the consult 1. Acute hypoxic respiratory failure (J96.01: Acute respiratory failure with hypoxia) 2. Asthma exacerbation (J45.901: Unspecified asthma with (acute) exacerbation) 3. Leukocytosis (D72.829: Elevated white blood cell count, unspecified) 4. Edema (R60.9: Edema, unspecified) 5. Exertional chest pain (R07.9: Chest pain, unspecified) 6. Hypertensive urgency (I16.0: Hypertensive urgency) 7. History of pulmonary embolism (Z86.711: Personal history of pulmonary embolism) 8. Chronic GERD (K21.9: Gastro-esophageal reflux disease without esophagitis) 9. Diabetes (E11.9: Type 2 diabetes mellitus without complications) 10. Rheumatoid arthritis (M06.9: Rheumatoid arthritis, unspecified) 11. Hypothyroidism (E03.9: Hypothyroidism, unspecified) 12. Morbid obesity (E66.01: Morbid (severe) obesity due to excess calories) 13. Encounter for deep vein thrombosis (DVT) prophylaxis (Z29.9: Encounter for prophylactic measures, unspecified) Problem List/Past Medical History Ongoing Adult BMI 38.0-38.9 kg/sq m Allergic rhinitis Anemia Annual physical exam Anti-citrullinated protein antibody detected Bilateral otitis media BMI 40.0-44.9, adult Bronchitis Chronic peripheral venous hypertension with lower extremity complication Chronic sinusitis Colitis Cough Derangement of knee Diverticular disease Esophageal web Exposure to COVID-19 virus Fluid level behind tympanic membrane of both ears Gastroesophageal reflux disease without esophagitis Hemorrhoids Hx of pulmonary embolus Hypothyroidism Hypoxemia Left lower lobe pneumonia Low hemoglobin Lung nodules Moderate asthma without complication Morbid obesity with BMI of 40.0-44.9, adult Nasal congestion Non-insulin dependent type 2 diabetes mellitus Obesity due to excess calories Oral thrush Pre-op exam Rheumatoid arthritis involving multiple sites wit (more content not included)... [facility] HospitalComment on above:Result Comment: Electronically Signed By: Maximino HDZ, Kodak Gan\.br\Date and Time Signed: 01/05/24 16:29 [id number] NoteProgress Note-Physician Basic Information 63-year-old female with asthma, hypertension, history of PE, GERD, diabetes, rheumatoid arthritis, hypothyroid, morbid obesity admitted with acute hypoxic respiratory failure secondary to asthma exacerbation Assessment/Plan 1. Acute hypoxic respiratory failure (J96.01: Acute respiratory failure with hypoxia) 2/2 asthma exacerbation, volume overload No home 02 use -Initial ABG: pH 7.470 CO2 36.2 pO2 59.6 HCO3 26.7 + SOB/LEROY, + conversational dyspnea -Chest CTA: No acute cardiopulm process -Consult pulm - pending -Supplemental O2 -Desat study prior to d/c -See below- IV steroids and diuresis as tolerated 2. Asthma exacerbation (J45.901: Unspecified asthma with (acute) exacerbation) Treated outpatient with steroids and Levaquin for questionable pneumonia, no improvement Home regimen for asthma: DuoNebs/Proair, Spiriva Respimat 1.25, Singulair -IV steroids: Solu-medrol 40 mg Q8H -Duonebs scheduled, PRN albuterol -Mucinex, Pulmonary toilet -Consult pulm pending -She had been treated for suspected PNA as out patient, chest CTA negative for such- she has been ordered her final dose of oral Levaquin today -Check sputum cx 3. Leukocytosis (D72.829: Elevated white blood cell count, unspecified) Secondary to above, with prolonged steroid, RA on Rinvoq -Trend CBC 4. Edema (R60.9: Edema, unspecified) BNP normal range, Chest CTA without cardiac decompensation -> clinically she appears volume overloaded with 10 lb weight gain in past 2-3 weeks Likely related to steroids, but good response to IV diuresis -Gentle IV lasix today, follow response/weights/I's and O's -Update echocardiogram, hx of diastolic dysfunction 5. Exertional chest pain (R07.9: Chest pain, unspecified) ECG non-acute, troponin trend has been negative -Echo and stress testing in 2021 negative -[facility] [place] has been consulted 6. Hypertensive urgency (I16.0: Hypertensive urgency) Present on admit with improved BP now -Follow BP trends with diuresis 7. History of pulmonary embolism (Z86.711: Personal history of pulmonary embolism) History of PE, no skilled nursing AC -Chest CTA in ER negative 8. Chronic GERD (K21.9: Gastro-esophageal reflux disease without esophagitis) -PPI 9. Diabetes (E11.9: Type 2 diabetes mellitus without complications) -AccuCheck AC/HS with SSI 10. Rheumatoid arthritis (M06.9: Rheumatoid arthritis, unspecified) -Prescribed Rinvoq but has been off with acute illness 11. Hypothyroidism (E03.9: Hypothyroidism, unspecified) -levothyroxine 137 mcg QD -TSH pending 12. Morbid obesity (E66.01: Morbid (severe) obesity due to excess calories) -Patient's BMI >30. Lifestyle modifications encouraged. Obesity is a pro- inflammatory state likely affecting above medical processes. Outpatient follow up. -BMI 40 13. Encounter for deep vein thrombosis (DVT) prophylaxis (Z29.9: Encounter for prophylactic measures, unspecified) -Lovenox Orders: furosemide, 20 mg = 2 mL, Injection, IV Push, BID, Routine, Start date 01/05/24 9:00:00 EDT, 01/05/24 8:28:00 EDT methylPREDNISolone, 40 mg = 1 mL, Injection, IV Push, q8hr, Routine, Start date 01/05/24 9:00:00 EDT, 01/05/24 8:27:00 EDT Consult to Pulmonology Echo Transthoracic Complete Flutter Valve Incentive Spirometry Sputum Culture Subjective Still very SOB with exertion, no further CP. Legs are quite swollen. Coughing up white sputum. No N/V/stool changes. Review of Systems Additional ROS info: Except as noted in the above Review of Systems and in the History of Present Illness all other systems have been reviewed and are negative or noncontributory Objective Vitals & Measurements T: 36.6 ?C(Oral) TMIN: 36.3 ?C(Oral) TMAX: 36.7 ?C(Oral) HR: 94(Monitored) RR: 20 BP: 138/85 SpO2: 97% HT: 149.86 cm WT: 90.4 kg Intake & Output This visit (24 hour periods starting at 07:00 EDT) 01/05/24 * 01/04/24 01/03/24 Total Summary Intake mL -- 5.5 -- Output mL -- 250 -- Fluid Balance -- -244.5 -- Intake (2) furosemide mL -- 4 -- methylPREDNISolone mL -- 1.5 -- Total -- 5.5 -- Output (1) Urine Voided mL -- 250 -- Total -- 250 -- Counts (0) * This column has not completed the indicated time period. Physical Exam General: Obese female sitting at EOB Alert, calm, NAD Eyes: PERRLA. HEENT: Mucous membrane pink, moist, Normal tongue. Neck: supple, no JVD, no bruit, no stridor Lungs: on RA, occasional cough, lungs with wheezing throughout, scattered rhonchi, no rales Cardio: tachycardic but regular S1, S2, no murmur, no gallop, no rub. Good perfusion Pulses: Normal capillary refill Abdomen: Obese, soft, non-distended, non-tender, + BS x4 Musculoskeletal: No deformity, normal ROM for age, steady independent gait Integumentary: Warm, dry, intact, to the right LE there is an open area from recent skin ca removalthat is moist (more content not included)...[facility] HospitalComment on above:Result Comment: Electronically Signed By: Serge Stanton CNP\.br\Date and Time Signed: 01/05/24 09:17 EDT\.br\Electronically Co-Signed By: Alessandro CASTAÑEDA MD\.br\Date and Time Co- Signed: 01/05/24 09:18 [id number] NoteProgress Note-Physician Note I was on the nursing unit speaking with patient's RN when she was notified that the patient was not feeling well . She went in urgently to find me it was the patient we had admitted earlier 335. While patient's nurse was in her I very quickly reviewed my notes and went into valuate her. This was at approximately 4:30 AM. She had just returned from a walk to the bathroom and states that she h ad trapezius left shoulder discomfort ? Upper left chest discomfort and that she was short of breath. She states she had the sensation that she could not fully inhale described the discomfort as a tightness rated as a 3 on a scale of 1-10. She was sitting at the bedside ,she was demonstrating no acute distress but understandably anxious in regards to the origin of her symptoms. She asked if this could be related to her shoulder which she has been evaluated for surgery in the near future. Heart demonstrated no murmur, lungs were clear without wheeze rhonchi or rales with adequate ventilatory volume. With rest the symptoms quickly abated symptoms lasted for approximately 10 minutes. Patient states she has never had symptoms like this before including at home with greater degrees of exertional state. Stat EKG was performed by the staff while I was in the room. Per my review of the EKG, patient was demonstrated a sinus rhythm, computer interpreted as nonspecific T wave abnormality. I noted there was mild T wave inversion in aVL as well as V2. This was present questionably more subtly onadmission. I compared it to a tracing from September 06, 2022 and feel there were no changes. This EKG demonstrated an isolated premature ventricular complex. There was some discomfort with palpation of this area but she questioned whether this was the same discomfort that she had experienced. Blood pressure was 157/94, heart rate was in the 90s, O2 sat on O2 per nasal cannula was 95%. Note patient had advised me in the past, she has seen Dr. Stanton. I performed a chart search and note that I had admitted the patient in May 2022, she had had GI symptoms with decreased oral intake and she had syncope. Patient's initial EKG on presentation demonstrated diffuse T wave inversions. Patient had an echocardiogram performed on 22 May which demonstrated normal ejection fraction no valvular dysfunction. Patient had an outpatient Lexiscan stress study on 20 May 2023. There was notation that the previous stress EKG did not demonstrate T wave abnormalities. Patient had no evidence of inducible ischemia. I reviewed the chart once again regarding this admission, it is noted that patient had 2 sets cardiac enzymes on initial presentation. With this new onset of symptoms and brief duration ?unlikely her enzymes to be positive if this were cardiac this early, we will get a troponin with a.m. labs. If higher than original troponin we will consider trending them out. Continue tomonitor on telemetry. Would not empirically treat with aspirin with her severe and persistent asthma. With this occurrence of chest pressure with exertion, many risk factors including diabetes hypertension and body habitus , history of diffuse T wave abnormalities on an admission in May 2022, noted to have resolved prior to the Lexiscan stress study in July 2022 ? unlikely balanced reperfusion, and recurrent presentations to family doctor, hospital and urgent care dyspnea (though notably wheezing and noted history of severe persistent asthma) will consult with cardiology. Check lipid panel. Differential with her GERD would also be esophageal spasm, bronchospasm with her admission symptoms and recent history though she did not have any wheezing during her symptoms, for pain from her left shoulder dysfunction though she was uncertain whether pain produced by palpating this area was a reproduction of symptoms would not anticipate this resulting in shortness of breath Note while was in the room with patient's RN who is tending the patient she did not want to stop her head which urine was produced with Lasix that had been given at 0 146. Await recording of urine output and impact in patient's symptoms of dyspnea. Patient states she has urinated frequently and a large volume since was given Lasix, if objectively verified with significant output consider an echocardiogram to assist systolic and diastolic function. Will defer to cardiologyGood Samaritan HospitalComment on above:Result Comment: Electronically Signed By: Andrea DAMON DO\Date and Time Signed: 01/05/24 05:20 [id number] NoteHistory and Physical Basic Information Admit Date/Time:01/04/2024 19:31 Chief Complaint SOB, worsening cough History of Present Illness Patient is a morbidly obese 63-year-old white female with a past medical history per review of her misdraw hand Dr. 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 Per the chart patient hasrequired gastric outlet reductions in the past which I was unable to confirm with the patient, hypothyroidism who presented to the emergency department with below. Regarding her recent history patient believes that her asthma had been controlled for over 40 years till approximately a year ago her primary care physician had switched her Advair to Symbicort. She was also switched to Singulair from Accolate and states she had 4 asthma attacks within the subsequent 30 days. Patient states she was ultimately changed back to Advair as well as Singulair but continues to have bouts of increasing shortness of breath. Was recently patient had presented to the emergency department on 28 December with complaints of shortness of breath and cough 1 week. Patient was felt to have pneumonia had been placed on other cycle of prednisone which she had recently been on and prescribed Levaquin as she had recently been on 2 other antibiotics. I note that the chest x-ray was read by radiology as no active disease that there was some vague not dense hesitant mass per my own review of the chest x- ray. Patient had seen her primary care physician on 30 December and on that date blood cultures have returned 1 of 2 were positive for a species of strep sensitive to Levaquin but resistant to macrolides. Per their documentation patient had no acute distress ,did have mild expiratory wheeze acknowledge that patient had been on antibiotics she was given Kenalog 60 mg intramuscularly. When reviewing this prior history of the patient she states that she had been placed on Cipro external pharmacy reports suggest on 18 December she states this was because skin biopsies of her right breast and right lower extremity which ultimately returned with squamous cell carcinoma have become infected. She was seen at the urgent care of [facility] was diagnosed with bronchitis and was given a prescription for Zithromax on 24 December. She was also placed on a burst of prednisone that she states milligrams as she had no improvement she was seen at [facility] urgent care on 26 December and given doxycycline which she was on at the time of presentation to the emergency department on 28 December referenced gisele abdul. Patient presented to the emergency department this evening with increasing shortness of breath. Patient states she has been weaning off her prednisone taper which she was on 60 mg for 3 days 20 mg for 3 days today was her second plan 3 days of 20 mg. States that since being placed on a prednisone taper and Levaquin her symptoms were progressively improving until today. States that her cough has begun to increase it is occasionally productive of thick yellow mucus. States she was coughing so much she became nauseated gagged and vomited and then developed reflux. She does state that she has hadmore problems with reflux lately since being on the prednisone taper but denies any dysphagia. She denies any history to suggest aspiration. Patient denies any fevers or chills. She states when she had presented to the urgent care they tested her for COVID and influenza which was negative. She has had no recent exposure to any individuals that she is aware of that has any respiratory illnesses. She does state that due to her shoulder surgery with plans in near future or revision of her left shou lder she has slept in a recliner. She does state however over the past 3 weeks she has had to increase the incline to her recliner. Also states that she has developed swelling in her legs. She statesover the last 3 weeks she has gained 10 pounds which she blamed on the prednisone. She denies any chest pain. She has noted that her heart rate has been somewhat more elevated states this is occurredsince developing COVID. Review of Systems Constitutional: no fever, no chills, no sweats, no weakness Skin: no Jaundice, no rash, no lesions, ENMT: no ear pain, no sore throat, no congestion, no hoarseness Respiratory: moderate shortness of breath, occurring at rest much worse with exertion mild to moderate cough, moderate orthopnea, moderate wheezing Cardiovascular: no chest pain, no palpitations, moderate edema Gastrointestinal: mild nausea, no vomiting, no diarrhea, no GI bleeding Genitourinary: no dysuria, no hematuria, Musculoskeletal: no back pain, (more content not included)...[facility] HospitalComment on above:Result Comment: Electronically Signed By: Andrea DAMON DO.dusty\Date and Time Signed: 01/05/24 01:19 [id number] Telephone encounter Note* Telephone Encounter - Lanny Pérez RN - 01/01/2024 9:31 AM EDT Call placed to pt per office request. Pt noted to have pneumonia and is not cleared through PCP. Provided nursing support and advised pt we should reschedule shoulder surgery. Rescheduled for 01/28/24-will need clearance through PCP prior to surgery. Direct office number provided for additional ques tions or concerns. [facility]07-03-2024 Miscellaneous Notes* Telephone Encounter - Lanny Pérez RN - 01/01/2024 9:31 AM EDT Call placed to pt per office request. Pt noted to have pneumonia and is not cleared through PCP. Provided nursing support and advised pt we should reschedule shoulder surgery. Rescheduled for 01/28/24-will need clearance through PCP prior to surgery. Direct office number provided for additional ques tions or concerns. documented in [facility] Hospital Discharge instructions Patient Education 12/29/2023 22:31:11 Community-Acquired Pneumonia, Adult, Wgjo-vs-[id number] Community-Acquired Pneumonia, Adult Pneumonia is an infection of the lungs. It causes irritation and swelling in the airways of the lungs. Mucus and fluid may also build up inside the airways. This may cause coughing and trouble breathing. One type of pneumonia can happen while you are in a hospital. A different type can happen when you are not in a hospital (community-acquired pneumonia). What are the causes? This condition is caused by germs (viruses, bacteria, or fungi). Some types of germs can spread from person to person. Pneumonia is not thought to spread from person to person. What increases the risk? You have a long-term (chronic) disease, such as: ?Disease of the lungs. This may be chronic obstructive pulmonary disease (COPD) or asthma. ?Heart failure. ?Cystic fibrosis. ?Diabetes. ?Kidney disease. ?Sickle cell disease. ?HIV. You have other health problems, such as: ?Your body's defense system (immune system) is weak. ?A condition that may cause you to breathe in fluids from your mouth and nose. You had your spleen taken out. You do not take good care of your teeth and mouth (poor dental hygiene). You use or have used tobacco products. You go where the germs that cause this illness are common. You are older than 65 years of age. What are the signs or symptoms? A cough. A fever. Sweating or chills. Chest pain, often when you breathe deeply or cough. Breathing problems, such as: ?Fast breathing. ?Trouble breathing. ?Shortness of breath. Feeling tired (fatigued). Muscle aches. How is this treated? Treatment for this condition depends on many things, such as: The cause of your illness. Your medicines. Your other health problems. Most adults can be treated at home. Sometimes, treatment must happen in a hospital. Treatment may include medicines to kill germs. Medicines may depend on which germ caused your illness. Very bad pneumonia is rare. If you get it, you may: Have a machine to help you breathe. Have fluid taken away from around your lungs. Follow these instructions at home: Medicines Take stde-wtj-fnfianb and prescription medicines only as told by your doctor. Take cough medicine only if you are losing sleep. Cough medicine can keep your body from taking mucus away from your lungs. If you were prescribed antibiotics, take them as told by your doctor. Do not stop taking them even if you start to feel better. Lifestyle Do not smoke or use any products that contain nicotine or tobacco. If you need help quitting, ask your doctor. Do not drink alcohol. Eat a healthy diet. This includes a lot of vegetables, fruits, whole grains, low-fat dairy products, and low-fat (lean) protein. General instructions Rest a lot. Sleep for at least 8 hours each night. Sleep with your head and neck raised. Put a few pillows under your head or sleep in a reclining chair. Return to your normal activities as told by your doctor. Ask your doctor what activities are safe for you. Drink enough fluid to keep your pee (urine) pale yellow. If your throat is sore, gargle with a mixture of salt and water 3 4 times a day or as needed. To make salt water, completely dissolve 1 tsp (3 6 g) of salt in 1 cup (237 mL) of warm water. Keep all follow-up visits. How is this prevented? Getting the pneumonia shot (vaccine). These shots have different types and schedules. Ask your doctor what works best for you. Think about getting this shot if: ?You are older than 65 years of age. ?You are 19 65 years of age and: ?You are being treated for cancer. ?You have long-term lung disease. ?You have other problems that affect your body's defense system. Ask your doctor if you have one ofthese. Getting your flu shot every year. Ask your doctor which type of shot is best for you. Going to the dentist as often as told. Washing your hands often with soap and water for at least 20 seconds. If you cannot use soap and water, use hand impregnation operator. Contact a doctor if: You have a fever. You lose sleep because your cough medicine does not help. Get help right away if: You are short of breath and this gets worse. You have more chest pain. Your sickness gets worse. This is very serious if: ?You are an older adult. ?Your body's defense system is weak. You cough up blood. These symptoms may be an emergency. Get help right away. Call 911. Do not wait to see if the symptoms will go away. Do not drive yourself to the hospital. Summary Pneumonia is an infection of the lungs. Community-acquired pneumonia affects people who have not been in the hospital. Certain germs can cause this infection. This condition may be treated with medicines that kill germs. For very bad pneumonia, you may need a hospital stay and treatment to help with breathing. This information is not intended to replace advice given to you by your health care provider. Make sure you discuss any questions you have with your health care provider. Document Revised: 08/15/2022 Document Reviewed: 08/15/2022 Elsevier Patient Education 2022 [email or web address]. 12/29/2023 22:31:11 Asthma, Adult, Onyl-oz-Vmzc Asthma, Adult Asthma is a condition that causes swelling and narrowing of the airways. These are the passages that lead from the nose and mouth down into the lungs. When asthma symptoms get worse it is called an asthma attack or flare. This can make it hard to breathe. Asthma flares can range from minor to life-threatening. There is no cure for asthma, but medicines and lifestyle changes can help to control it. What are the causes? It is not known exactly what causes asthma, but certain things can cause asthma symptoms to get worse (triggers). What can trigger an asthma attack? Cigarette smoke. Mold. Dust. Your pet's skin flakes (dander). Cockroaches. Pollen. Air pollution (like household personal health coach, wood smoke, smog, or chemical odors). What are the signs or symptoms? Trouble breathing (shortness of breath). Coughing. Making high-pitched whistling sounds when you breathe, most often when you breathe out (wheezing). Chest tightness. Tiredness with little activity. Poor exercise tolerance. How is this treated? Controller medicines that help prevent asthma symptoms. Fast-acting reliever or rescue medicines. These give short-term relief of asthma symptoms. Allergy medicines if your attacks are brought on by allergens. Medicines to help control the body's defense (immune) system. Staying away from the things that cause asthma attacks. Follow these instructions at home: Avoiding triggers in your home Do not allow anyone to smoke in your home. Limit use of fireplaces and wood stoves. Get rid of pests (such as roaches and mice) and their droppings. Keep your home clean. ?Clean your floors. Dust regularly. Use cleaning products that do not smell. ?Wash bed sheets and blankets every week in hot water. Dry them in a dryer. ?Have someone vacuum when you are not home. ?Change your heating and air conditioning filters often. Use blankets that are made of polyester or cotton. General instructions Take ntpp-yrf-nxynxje and prescription medicines only as told by your doctor. Do not smoke or use any products that contain nicotine or tobacco. If you need help quitting, ask your doctor. ?Stay away from secondhand smoke. Avoid doing things outdoors when allergen counts are high and when air quality is low. Warm up before you exercise. Take time to cool down after exercise. Use a peak flow meter as told by your doctor. A peak flow meter is a tool that measures how well your lungs are working. ?Keep track of the peak flow meter's readings. Write them down. Follow your asthma action plan. This is a written plan for taking care of your asthma and treating your attacks. Make sure you get all the shots (vaccines) that your doctor recommends. Ask your doctor about a flushot and a pneumonia shot. Keep all follow-up visits. Contact a doctor if: You have wheezing, shortness of breath, or a cough even while taking medicine to prevent attacks. The mucus you cough up (sputum) is thicker than usual. The mucus you cough up changes from clear or white to yellow, green, santiago, or is bloody. You have problems from the medicine [...] You feel too tired to breathe normally. These symptoms may be an emergency. Get help right away. Call 911. Do not wait to see if the symptoms will go away. Do not drive yourself to the hospital. Summary Asthma is a long-term (chronic) condition in which the airways get tight and narrow. An asthma attack can make it hard to breathe. Asthma cannot be cured, but medicines and lifestyle changes can help control it. Make sure you understand how to avoid triggers and how and when to use your medicines. Avoid things that can cause allergy symptoms (allergens). These include animal skin flakes (dander)and pollen from trees or grass. Avoid things that pollute the air. These may include household personal health coach, wood smoke, smog, or chemical odors. This information is not intended to replace advice given to you by your health care provider. Make sure you discuss any questions you have with your health care provider. Document Revised: 03/26/2022 Document Reviewed: 03/26/2022 [employer] Patient Education 2022 [email or web address]. Follow Up Care 12/29/2023 20:27:40 With:Silvestre Benavides Address:Unknown When:01/01/2024 Comments:Call Dr for diagnosis based follow up [facility]06-30-2024 NoteED Patient Education Note Infectious Disease Community-Acquired Pneumonia, Adult Pneumonia is an infection of the lungs. It causes irritation and swelling in the airways of the lungs. Mucus and fluid may also build up inside the airways. This may cause coughing and trouble breathing. One type of pneumonia can happen while you are in a hospital. A different type can happen when you are not in a hospital (community-acquired pneumonia). What are the causes? This condition is caused by germs (viruses, bacteria, or fungi). Some types of germs can spread from person to person. Pneumonia is not thought to spread from person to person. What increases the risk? ? You have a long-term (chronic) disease, such as: ? Disease of the lungs. This may be chronic obstructive pulmonary disease (COPD) or asthma. ? Heart failure. ? Cystic fibrosis. ? Diabetes. ? Kidney disease. ? Sickle cell disease. ? HIV. ? You have other health problems, such as: ? Your body's defense system (immune system) is weak. ? A condition that may cause you to breathe in fluids from your mouth and nose. ? You had your spleen taken out. ? You do not take good care of your teeth and mouth (poor dental hygiene). ? You use or have used tobacco products. ? You go where the germs that cause this illness are common. ? You are older than 65 years of age. What are the signs or symptoms? ? A cough. ? A fever. ? Sweating or chills. ? Chest pain, often when you breathe deeply or cough. ? Breathing problems, such as: ? Fast breathing. ? Trouble breathing. ? Shortness of breath. ? Feeling tired (fatigued). ? Muscle aches. How is this treated? Treatment for this condition depends on many things, such as: ? The cause of your illness. ? Your medicines. ? Your other health problems. Most adults can be treated at home. Sometimes, treatment must happen in a hospital. ? Treatment may include medicines to kill germs. ? Medicines may depend on which germ caused your illness. Very bad pneumonia is rare. If you get it, you may: ? Have a machine to help you breathe. ? Have fluid taken away from around your lungs. Follow these instructions at home: Medicines ? Take qdwr-jgx-syhsdlh and prescription medicines only as told by your doctor. ? Take cough medicine only if you are losing sleep. Cough medicine can keep your body from taking mucus away from your lungs. ? If you were prescribed antibiotics, take them as told by your doctor. Do not stop taking them even if you start to feel better. Lifestyle ? Do not smoke or use any products that contain nicotine or tobacco. If you need help quitting, askyour doctor. ? Do not drink alcohol. ? Eat a healthy diet. This includes a lot of vegetables, fruits, whole grains, low-fat dairy products, and low-fat (lean) protein. General instructions ? Rest a lot. Sleep for at least 8 hours each night. ? Sleep with your head and neck raised. Put a few pillows under your head or sleep in a reclining chair. ? Return to your normal activities as told by your doctor. Ask your doctor what activities are safefor you. ? Drink enough fluid to keep your pee (urine) pale yellow. ? If your throat is sore, gargle with a mixture of salt and water 3?4 times a day or as needed. To make salt water, completely dissolve ??1 tsp (3?6 g) of salt in 1 cup (237 mL) of warm water. ? Keep all follow-up visits. How is this prevented? ? Getting the pneumonia shot (vaccine). These shots have different types and schedules. Ask your doctor what works best for you. Think about getting this shot if: ? You are older than 65 years of age. ? You are 19?65 years of age and: ? You are being treated for cancer. ? You have long-term lung disease. ? You have other problems that affect your body's defense system. Ask your doctor if you have one of these. ? Getting your flu shot every year. Ask your doctor which type of shot is best for you. ? Going to the dentist as often as told. ? Washing your hands often with soap and water for at least 20 seconds. If you cannot use soap and water, use hand impregnation operator. Contact a doctor if: ? You have a fever. ? You lose sleep because your cough medicine does not help. Get help right away if: ? You are short of breath and this gets worse. ? You have more chest pain. ? Your sickness gets worse. This is very serious if: ? You are an older adult. ? Your body's defense system is weak. ? You cough up blood. These symptoms may be an emergency. Get help right away. Call 911. ? Do not wait to see if the symptoms will go away. ? Do not drive yourself to the hospital. Summary ? Pneumonia is an infection of the lungs. ? Community-acquired pneumonia affects people who have not been in the hospital. Certain germs can cause this infection. ? (more content not included)...[facility] Evaluation + Plan note Diagnostic Tests Pending * Blood Culture Charcoal 12/29/23 * Blood Culture Charcoal 12/29/23 Future Scheduled Tests Laboratory* CBC w/ Auto Diff 05/10/23 [facility]06-28-2024 Hospital Discharge instructions Patient Education 12/27/2023 15:47:29 BMI for Adults BMI for Adults What is BMI? Body mass index (BMI) is a number that is calculated from a person's weight and height. BMI can help estimate how much of a person's weight is composed of fat. BMI does not measure body fat directly.Rather, it is an alternative to procedures that directly measure body fat, which can be difficult and expensive. BMI can help identify people who may be at higher risk for certain medical problems. What are BMI measurements used for? BMI is used as a screening tool to identify possible weight problems. It helps determine whether a person is obese, overweight, a healthy weight, or underweight. BMI is useful for: Identifying a weight problem that may be related to a medical condition or may increase the risk for medical problems. Promoting changes, such as changes in diet and exercise, to help reach a healthy weight. BMI screening can be repeated to see if these changes are working. How is BMI calculated? BMI involves measuring your weight in relation to your height. Both height and weight are measured,and the BMI is calculated from those numbers. This can be done either in [place] ([place] or metric measurements. Note that charts and online BMI calculators are available to help you find your BMI quickly and easily without having to do these calculations yourself. To calculate your BMI in [place] ([place] measurements: 1.Measure your weight in pounds (lb). 2.Multiply the number of pounds by 703. For example, for a person who weighs 180 lb, multiply that number by 703, which equals 126,540. 3.Measure your height in inches. Then multiply that number by itself to get a measurement called inches squared. For example, for a person who is 70 inches tall, the inches squared measurement is 70 inches x 70inches, which equals 4,900 inches squared. 4.Divide the total from step 2 (number of lb x 703) by the total from step 3 (inches squared): 126,540 4,900 = 25.8. This is your BMI. To calculate your BMI in metric measurements: 1.Measure your weight in kilograms (kg). 2.Measure your height in meters (m). Then multiply that number by itself to get a measurement called meters squared. For example, for a person who is 1.75 m tall, the meters squared measurement is 1.75 m x 1.75 m, which is equal to 3.1 meters squared. 3.Divide the number of kilograms (your weight) by the meters squared number. In this example: 70 3.1 = 22.6. This is your BMI. What do the results mean? BMI charts are used to identify whether you are underweight, normal weight, overweight, or obese. The following guidelines will be used: Underweight: BMI less than 18.5. Normal weight: BMI between 18.5 and 24.9. Overweight: BMI between 25 and 29.9. Obese: BMI of 30 or above. Keep these notes in mind: Weight includes both fat and muscle, so someone with a muscular build, such as an athlete, may havea BMI that is higher than 24.9. In cases like these, BMI is not an accurate measure of body fat. To determine if excess body fat is the cause of a BMI of 25 or higher, further assessments may needto be done by a health care provider. BMI is usually interpreted in the same way for men and women. Where to find more information For more information about BMI, including tools to quickly calculate your BMI, go to these websites: Centers for Disease Control and Prevention: www.cdc.gov [employer] [place] Heart Association: www.heart.org National Heart, Lung, and Blood Perry: www.nhlbi.nih.gov Summary Body mass index (BMI) is a number that is calculated from a person's weight and height. BMI may help estimate how much of a person's weight is composed of fat. BMI can help identify thosewho may be at higher risk for certain medical problems. BMI can be measured using Samoan measurements or metric measurements. BMI charts are used to identify whether you are underweight, normal weight, overweight, or obese. This information is not intended to replace advice given to you by your health care provider. Make sure you discuss any questions you have with your health care provider. Document Revised: 03/09/2020 Document Reviewed: 01/15/2020 [employer] Patient Education 2022 [email or web address]. 12/27/2023 15:47:27 Acute Bronchitis, Adult Acute Bronchitis, Adult Acute bronchitis is sudden inflammation of the main airways (bronchi) that come off the windpipe (trachea) in the lungs. The swelling causes the airways to get smaller and make more mucus than normal. This can make it hard to breathe and can cause coughing or noisy breathing (wheezing). Acute bronchitis may last several weeks. The cough may last longer. Allergies, asthma, and exposureto smoke may make the condition worse. What are the causes? This condition can be caused by germs and by substances that irritate the lungs, including: Cold and flu viruses. The most common cause of this condition is the virus that causes the common cold. Bacteria. This is less common. Breathing in substances that irritate the lungs, including: ?Smoke from cigarettes and other forms of tobacco. ?Dust and pollen. ?Fumes from household cleaning products, gases, or burned fuel. ?Indoor or outdoor air pollution. What increases the risk? The following factors may make you more likely to develop this condition: A weak body's defense system, also called the immune system. A condition that affects your lungs and breathing, such as asthma. What are the signs or symptoms? Common symptoms of this condition include: Coughing. This may bring up clear, yellow, or green mucus from your lungs (sputum). Wheezing. Runny or stuffy nose. Having too much mucus in your lungs (chest congestion). Shortness of breath. Aches and pains, including sore throat or chest. How is this diagnosed? This condition is usually diagnosed based on: Your symptoms and medical history. A physical exam. You may also have other tests, including tests to rule out other conditions, such as pneumonia. These tests include: A test of lung function. Test of a mucus sample to look for the presence of bacteria. Tests to check the oxygen level in your blood. Blood tests. Chest X-ray. How is this treated? Most cases of acute bronchitis clear up over time without treatment. Your health care provider may recommend: Drinking more fluids to help thin your mucus so it is easier to cough up. Taking inhaled medicine (inhaler) to improve air flow in and out of your lungs. Using a vaporizer or a humidifier. These are machines that add water to the air to help you breathebetter. Taking a medicine that thins mucus and clears congestion (expectorant). Taking a medicine that prevents or stops coughing (cough suppressant). It is not common to take an antibiotic medicine for this condition. Follow these instructions at home: Take ynlt-ovi-wgipxun and prescription medicines only as told by your health care provider. Use an inhaler, vaporizer, or humidifier as told by your health care provider. Take two teaspoons (10 mL) of honey at bedtime to lessen coughing at night. Drink enough fluid to keep your urine pale yellow. Do not use any products that contain nicotine or tobacco. These products include cigarettes, chewing tobacco, and vaping devices, such as e-cigarettes. If you need help quitting, ask your health careprovider. Get plenty of rest. Return to your normal activities as told by your health care provider. Ask your health care provider what activities are safe for you. Keep all follow-up visits. This is important. How is this prevented? To lower your risk of getting this condition again: Wash your hands often with soap and water for at least 20 seconds. If soap and water are not available, use hand impregnation operator. Avoid contact with people who have cold symptoms. Try not to touch your mouth, nose, or eyes with your hands. Avoid breathing in smoke or chemical fumes. Breathing smoke or chemical fumes will make your condition worse. Get the flu shot every year. Contact a health care provider if: Your symptoms do not improve after 2 weeks. You have trouble coughing up the mucus. Your cough keeps you awake at night. You have a fever. Get help right away if you: Cough up blood. Feel pain in your chest. Have severe shortness of breath. Faint or keep feeling like you are going to faint. Have a severe headache. Have a fever or chills that get worse. These symptoms may represent a serious problem that is an emergency. Do not wait to see if the symptoms will go away. Get medical help right away. Call your local emergency services (911 in the [place] Do not drive yourself to the hospital. Summary Acute bronchitis is inflammation of the main airways (bronchi) that come off the windpipe (trachea)in the lungs. The swelling causes the airways to get smaller and make more mucus than normal. Drinking more fluids can help thin your mucus so it is easier to cough up. Take qeuh-iwe-jhewhmn and prescription medicines only as told by your health care provider. Do not use any products that contain nicotine or tobacco. These products include cigarettes, chewing tobacco, and vaping devices, such as e-cigarettes. If you need help quitting, ask your health careprovider. Contact a health care provider if your symptoms do not improve after 2 weeks. This information is not intended to replace advice given to you by your health care provider. Make sure you discuss any questions you have with your health care provider. Document Revised: 09/27/2022 Document Reviewed: 10/18/2021 [employer] Patient Education 2022 [email or web address]. Follow Up Care 12/27/2023 14:03:46 With:Makayla HDZ, DWAIN Gzuman, MED Address:Unknown When: Unknown [facility] 06-28-2024 NotePatient Education Nutrition BMI for Adults What is BMI? Body mass index (BMI) is a number that is calculated from a person's weight and height. BMI can help estimate how much of a person's weight is composed of fat. BMI does not measure body fat directly.Rather, it is an alternative to procedures that directly measure body fat, which can be difficult and expensive. BMI can help identify people who may be at higher risk for certain medical problems. What are BMI measurements used for? BMI is used as a screening tool to identify possible weight problems. It helps determine whether a person is obese, overweight, a healthy weight, or underweight. BMI is useful for: ? Identifying a weight problem that may be related to a medical condition or may increase the risk for medical problems. ? Promoting changes, such as changes in diet and exercise, to help reach a healthy weight. BMI screening can be repeated to see if these changes are working. How is BMI calculated? BMI involves measuring your weight in relation to your height. Both height and weight are measured,and the BMI is calculated from those numbers. This can be done either in [place] ([place] or metric measurements. Note that charts and online BMI calculators are available to help you find your BMI quickly and easily without having to do these calculations yourself. To calculate your BMI in [place] ([place] measurements: 1. Measure your weight in pounds (lb). 2. Multiply the number of pounds by 703. ? For example, for a person who weighs 180 lb, multiply that number by 703, which equals 126,540. 3. Measure your height in inches. Then multiply that number by itself to get a measurement called inches squared. ? For example, for a person who is 70 inches tall, the inches squared measurement is 70 inches x 70 inches, which equals 4,900 inches squared. 4. Divide the total from step 2 (number of lb x 703) by the total from step 3 (inches squared): 126,540 ? 4,900 = 25.8. This is your BMI. To calculate your BMI in metric measurements: 1. Measure your weight in kilograms (kg). [...] meters squared number. In this example: 70 ?3.1 = 22.6. This is your BMI. What do the results mean? BMI charts are used to identify whether you are underweight, normal weight, overweight, or obese. The following guidelines will be used: ? Underweight: BMI less than 18.5. ? Normal weight: BMI between 18.5 and 24.9. ? Overweight: BMI between 25 and 29.9. ? Obese: BMI of 30 or above. Keep these notes in mind: ? Weight includes both fat and muscle, [...] the same way for men and women. Where to find more information For more information about BMI, including tools to quickly calculate your BMI, go to these websites: ? Centers for Disease Control and Prevention: www.cdc.gov ? [place] Heart Association: www.heart.org ? National Heart, Lung, and Blood [place]: www.nhlbi.nih.gov Summary ? Body mass index (BMI) is a number that is calculated from a person's weight and height. ? BMI may help estimate how much of a person's weight is composed of fat. BMI can help identify those who may be at higher risk for certain medical problems. ? BMI can be measured using Samoan measurements or metric measurements. ? BMI charts are used to identify whether you are underweight, normal weight, overweight, or obese. This information is not intended to replace advice given to you by your health care provider. Make sure you discuss any questions you have with your health care provider. Document Revised: 03/09/2020 Document Reviewed: 01/15/2020 [employer] Patient Education ? 2022 [email or web address]. Pulmonary Medicine Acute Bronchitis, Adult Acute bronchitis is sudden inflammation of the main airways (bronchi) that come off the windpipe (trachea) in the lungs. The swelling causes the airways to get smaller and make more mucus than normal. This can make it hard to breathe and can cause coughing or noisy breathing (wheezing). Acute bronchitis may last several weeks. The cough may last longer. Allergies, asthma, and exposureto smoke may make the condition worse. What are the causes? This condition can be caused by germs and by substances that irritate the lungs, including: ? Cold and flu viruses. The most common cause (more content not included)... [facility]06-27-2024 Telephone encounter Note* Telephone Encounter - Louis Cates APRN.CNP - 12/26/2023 11:11 AM EDT Carolina Magana is scheduled for Procedure(s) (LRB): REMOVAL IMPLANT DEEP (Left) INSERT CEMENT SPACER SHOULDER (Left) on 01/07/[address] John Holly. Carolina tested positive for Methicillin-SUSCEPTIBLE Staphylococcus aureus via nasal swab. I have ordered mupirocin ointment for her to use in preparation for her surgery. Is there any concern about using this antibiotic while she is on RINVOQ? What are your recommendations concerning RINVOQ leading up to, and following, her surgery? Thank you, Louis Cates APRN.CNP [facility]06-27-2024 Miscellaneous Notes* Telephone Encounter - Louis Cates APRN.CNP - 12/26/2023 11:11 AM EDT Carolina Magana is scheduled for Procedure(s) (LRB): REMOVAL IMPLANT DEEP (Left) INSERT CEMENT SPACER SHOULDER (Left) on 01/07/[address] John Holly. Carolina tested positive for Methicillin-SUSCEPTIBLE Staphylococcus aureus via nasal swab. I have ordered mupirocin ointment for her to use in preparation for her surgery. Is there any concern about using this antibiotic while she is on RINVOQ? What are your recommendations concerning RINVOQ leading up to, and following, her surgery? Thank you, Louis Cates APRN.CNP documented in this encounterUniversity [facility]06-[facility] Telephone encounter Note * Telephone Encounter - Azra Regan - 12/25/2023 3:35 PM EDT Carolina is calling Louis Cates APRN.CNP today with concern regarding Medication Problem. Patientcalled and states she saw her results and received a phone call that she should take the medicationthat was prescribed. She states that the pharmacy does not have any medications. Pharmacy is [facility]. Please advise if anything needs to be sent in for ains abnormal data STAPHYLOCOCCUS AUREUS & MRSA SCREEN, PCR, NASAL that was positive. Patient has been identified by name and birthdate. Person calling: self Call patient at: at home [phone] (home) [phone] (work) [phone] (cell) Was an appointment scheduled: No Closing statement: Results or non-symptom based questions: Thank you for calling [facility], your call will be returned within the next business day. Azra Regan [facility]06-26-2024 Miscellaneous Notes* Telephone Encounter - Azra Regan - 12/25/2023 3:35 PM EDT Carolina is calling Louis Cates APRN.CNP today with concern regarding Medication Problem. Patientcalled and states she saw her results and received a phone call that she should take the medicationthat was prescribed. She states that the pharmacy does not have any medications. Pharmacy is [facility]. Please advise if anything needs to be sent in for ains abnormal data STAPHYLOCOCCUS AUREUS & MRSA SCREEN, PCR, NASAL that was positive. Patient has been identified by name and birthdate. Person calling: self Call patient at: at home [phone] (home) [phone] (work) [phone] (cell) Was an appointment scheduled: No Closing statement: Results or non-symptom based questions: Thank you for calling [facility], your call will be returned within the next business day. Azra Regan documented in this encounterUniversity [facility]als [facility]06-21-2024 Instructions* Patient Instructions* Louis Cates APRN.DOG LICENSER - 12/20/2023 9:46 AM EDT PATIENT PREOPERATIVE INSTRUCTIONS John Holly has scheduled you for your procedure at this surgery center: [facility] Scheduling Office: [phone] -[phone] [place] [address]. Please read below carefully for your personalized instructions. Dietary Restrictions: - No solid food after midnight. - You may have 12 ounces of clear liquids (water, clear juices such as apple juice or gatorade, carbonated beverages, clear tea, black coffee, jello) until 2 hours before scheduled arrival at facility. Medications: Unless instructed differently below, stay on all of your medications until your surgery. If you start any new medications after today's visit, please contact your surgeon. Pre-Surgery Med Instructions Medication Instructions tiotropium bromide (SPIRIVA WITH HANDIHALER INHALATION) Continue Taking ciprofloxacin HCl (CIPRO ORAL) Continue Taking montelukast sodium (SINGULAIR ORAL) Continue Taking ondansetron orally disintegrating (ZOFRAN ODT) 4 mg disintegrating tablet Continue Taking RINVOQ 15 mg tablet Hold for 3 days before surgery, hold day of surgery, Restart 14 days after surgery if healing complete at that time. OR instruction per Dr. Neff celecoxib (CELEBREX) 200 mg capsule Stop 7 days before surgery levothyroxine (SYNTHROID) 75 mcg tablet Continue Taking LANSOPRAZOLE 30 mg capsule Continue Taking fluticasone (FLONASE) 50 mcg/actuation nasal spray Continue Taking ADVAIR 250/50 DISKUS Continue Taking OZEMPIC - takes on Saturdays. please do not take on January 03, resume after surgery If you start any new medications after today's visit, please contact the surgeon's office. Blood Thinning Medications: - Hold NSAIDS (Ibuprofen, Advil, Aleve, Motrin, Celebrex, Mobic, etc.) 7 days before surgery, as directed by your surgeon. - Hold Aspirin 7 days before surgery, as directed by your surgeon. - Hold all vitamins, fish oil, herbals and dietary supplements 7 days before surgery. - You may take Tylenol (Acetaminophen) or any of your pain medications that do not contain aspirin or NSAIDS as needed. Important Reminders: - If you use CPAP/BIPAP, bring the machine with you to the surgery center. - If you are prescribed inhalers for breathing, continue using them. - Candy, mints, and tobacco products are NOT permitted the morning of surgery. - Hearing aids, dentures and glasses may be worn the morning of surgery. - NO jewelry, body piercings, makeup, hairpins or contacts are to be worn the day of surgery. If you develop symptoms such as a fever, cold, or flu, or have other changes to your health within TWO DAYS of scheduled surgery or the morning of surgery, please contact the surgery center above. Personal Belongings: -Please have photo ID and insurance cards. -If you do not have a copy of advance directives on file with us, please bring a copy with you on the day of surgery. - Leave ALL valuables and money at home or with family members. Arrival Time for Surgery: - To obtain your arrival time for surgery, call your physician's office the day before your surgery. - If your surgery is scheduled for Saturday, call the Saturday before. Your surgeon s employment coach will tell you what time to call the office. - If you have not reached the departmental employment coach by 5 P.M., call [phone] after 5 P.M. the day before your surgery. Please be aware that emergency situations arise, which may delay or change your surgical time. If this happens, we will notify you as soon as possible and regret any inconvenience. If you already have an Advance Directive, please fax a copy to [phone] or email to for it to be added to your chart. If you do not have an Advance Directive, you can find the appropriate form and more information at [email or web address]. We recommend that youcomplete the Advance Directive form found on the website and bring it with you the day of your surgery. It can be witnessed and scanned into your chart that day. documented in this encounterUniversity [facility]als [facility]06-21-2024 History and physical note * Louis Cates APRN.CNP - 12/20/2023 9:20 AM EDT HISTORY AND PHYSICAL EXAMINATION SERVICE DATE: 12/20/2023 SERVICE TIME: 9:59 AM PRIMARY CARE PHYSICIAN: Aline Guerrero MD REASON FOR VISIT: Carolina Gutierrez is a 63 year old female who is scheduled for Left - REMOVAL IMPLANT DEEP Left - INSERT CEMENT SPACER SHOULDER at the request of Dr. John Holly for consultation. My final recommendation will be communicated back to the requesting physician by way of shared medical record or letter. Assessment Patient has the following medical conditions which may affect merary-operative course: PONV (postoperative nausea and vomiting) Assessment: states meds work well Elevated blood pressure reading in office with white coat syndrome, without diagnosis of hypertension Assessment: stable, asymptomatic for CP, SOB, palpitations. States BP runs higher in medical offices. Last 5 Encounter BP Readings: Date: BP: 12/20/2023 132/84 05/07/2022 150/78 01/27/2014 120/80 05/06/2012 118/74 10/30/2011 116/76 Hyperlipidemia Assessment: no current medication, 11/18 LDL 129, wants to discuss with PCP prior to starting statin Asthma without status asthmaticus Assessment: stable and asymptomatic, uses inhalers. No recent URI. Lungs clear to auscultation, follows with pulmonology annually in [place] GERD (gastroesophageal reflux disease) Assessment: Managed and stable with current medication. Denies difficulty swallowing or any bleeding. HYPOTHYROIDISM NOS Assessment: stable with current medication regimen Diabetes (HCC) Assessment: Currently taking ozempic, takes on Saturdays, instructed to hold on January 03, restart following surgery. A1C today No results found for: HBA1C Anemia Assessment: Stable. Denies bleeding. Hemoglobin (g/dL) Date Value 05/07/2022 12.6 07/03/2007 13.7 10/10/2005 13.3 08/08/2005 14.1 Primary basal cell carcinoma (BCC) of right breast Assessment: underwent cryotherapy, states resolved Rheumatoid arthritis of multiple sites without rheumatoid factor (HCC) Assessment: follows with Dr. Neff, on Rinvoq. Stable. 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 Denies pain. History of pulmonary embolism Assessment: following bout COVID in 2019. Was on xarelto for a year, completed course of thinner. No recurrence. [place] Activity Status Index: METS: Walk indoors, such as around the house (1.75 METs) Do light work around the house, such as dusting or washing dishes (2.70 METs) Take care of self; that is eating, dressing, bathing, using the toilet (2.75 METs) Do moderate work around the house, such as vacuuming, sweeping floors, or carrying in groceries (3.50 METs) Climb a flight of stairs or walk up a hill (5.50 METs) Participate in moderate recreational activites, such as golf, bowling, dancing, doubles tennis, or throwing a baseball or football (6.00 METs) DASI Score: 22.2 Patient denies any chest pain or undue shortness of breath with the above physical activity. STOP-Bang Score: BMI greater than 35 kg/m^2 Patient over 50 years old Denies snoring loudly Denies feeling tired, fatigued, or sleepy during the daytime Has not been observed to stop breathing or choking/gasping during sleep Denies having high blood pressure Does not have a large neck Non-male patient STOP-Bang Score: 2 [id number] Score: Age: <65 Sex: female CHF history: No Hypertension history: No Stroke/TIA/thromboembolism history: No Vascular disease history: No Diabetes history: Yes [id number] Score: 2 ARISCAT Score: Age: 51-80 Preoperative SpO2: >=96% Respiratory infection in the last month: No Surgical incision: peripheral Duration of surgery: 2-3 hrs Emergency procedure: No ARISCAT Score: ANESTHESIA FINDINGS: Intubation History: No history of difficult intubation Significant Anesthesia Considerations: potential postop nausea/vomiting Airway History: No history of difficult airway most recent airway history - 01/23/22 care everywhere Final Airway Details Final airway type: endotracheal airway Successful airway: ETT ETT size: 7.0 mm Cuffed: yes Endotracheal tube insertion site: oral Successful intubation technique: direct laryngoscopy Blade: [place] Blade size: #3 Cormack-Lehane Classification: grade IIb - view of arytenoids or posterior of glottis only Placement verified by: auscultation, CO2 detection and visualization through the cords Tube secured: 20 CM at the lips Tube Secured with: tape I - PHYSICAL EVALUATION AIRWAY Patient intubated: No. Tracheostomy tube not present Mallampati: III. TM distance: <3 FB. Neck ROM: full ROM without neurological symptoms. Mouth opening: adequate. Short neck: yes. Thick neck: yes Delgadillo present: no Lip Bite Test: II Microretrognathia/Micronagthia/Recessed Chin: No DENTAL Additional comments: Caps/crowns. II - ANESTHESIA PLAN Anesthetic plan additional comments: *PACC/TCI - anesthesia choice. Beta Greg Monitoring Plan Post Procedure Analgesic Plan Informed Consent Anesthetic risks, benefits, alternatives, personnel and consent discussed: yes. Patient / Responsible Republican agrees to proceed: yes Patient / Surrogate agrees to blood products: Yes Discussed the possibility of lip / dental damage: yes Prepared for surgery: This patient is optimally prepared for surgery. CONSULTS: Patient does not require consults for optimization at this time. The Following Tests/Procedures Have Been Initiated: Orders Placed This Encounter Hemoglobin A1C Standing Status: Future Standing Expiration Date: 03/20/2024 Staphylococcus aureus & MRSA Screen, PCR, Nasal Standing Status: Future Standing Expiration Date: 03/20/2024 tiotropium bromide (SPIRIVA WITH HANDIHALER INHALATION) Sig: Inhale as instructed. ciprofloxacin HCl (CIPRO ORAL) Sig: Take by mouth. montelukast sodium (SINGULAIR ORAL) Sig: Take by mouth. semaglutide (OZEMPIC) 2 mg/dose (8 mg/3 mL) pen injector Sig: Inject 2 mg subcutaneously one time a week. 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 Patient denies any chest pain, shortness of breath, palpitations, fever/chills, nausea/vomiting, fatigue, or diarrhea. no pain at today's visit. stable and compliant with current medications REVIEW OF SYSTEMS: PAIN ASSESSMENT: General: No weight loss, malaise or fevers. Neuro: No history of TIA's, stroke, CAN MARKER tumor, impaired sensorium, hemiplegia, paraplegia or quadraplegia. No neurological symptoms or problems. 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 : Denies, No LMP recorded. Patient has had a hysterectomy. Endocrine: Hypothyroidism, diabetes Hematology: h/o PE, h/o anemia Oncology: right breast BCC (cryo) Psych: No history of psychiatric symptoms or problems. Musculoskeletal: RA, 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] Failed orthopedic implant, initial encounter ([facility]) [T84.218A] , Body mass index is 44.53 kg/m . Skin: Negative for lesions, rash and itching. 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 Bilateral Wrist Pain Bilateral Hand Pain Family History of Gout Secondary Osteoarthritis of Multiple Sites Family History of Rheumatoid Arthritis Aileen Positive Rheumatoid Arthritis of Multiple Sites Without Rheumatoid Factor ([facility]) Postmenopausal Osteoporosis of Multiple Sites Long-Term Use of High-Risk Medication Cyclic Citrullinated Peptide (Ccp) Antibody Positive Rheumatoid Factor Positive Encounter for Long-Term (Current) Use of Nsaids Vitamin D Deficiency Personal History of Other Medical Treatment Bilateral Chronic Knee Pain Nausea Failed Orthopedic Implant ([facility]) S/P Reverse Total Shoulder Arthroplasty, Left Loose Orthopedic Implant ([facility]) Gerd (Gastroesophageal Reflux Disease) History of Pulmonary Embolism Hypertension Diabetes ([facility]) Anemia Asthma Without Status Asthmaticus Covid Immunization Dates Overdue - Covid-19 Vaccine ( season) Overdue since 03/01/2023 06/09/2021 Imm Admin: COVID-19 original vaccine, age 12+ yr, monovalent (PFIZER- BIONTDigital Dandelion - PURPLE TOP) 09/23/2020 Imm Admin: COVID-19 original vaccine, age 12+ yr, monovalent (ThisNext- BIONTECH - PURPLE TOP) 09/02/2020 Imm Admin: COVID-19 original vaccine, age 12+ yr, monovalent (ThisNext- BIONTDigital Dandelion - PURPLE TOP) PAST MEDICAL HISTORY Diagnosis Date Alopecia totalis Arthritis Asthma Heavy menses Obesity Rosacea Seasonal allergies PAST SURGICAL HISTORY Procedure Laterality Date APPENDECTOMY BX BREAST NEEDLE CORE W/O IMAGING GUIDANCE SPX 09/25/2007 left axillary lymph node HYSTERECTOMY HX both ovaries intact PAST SURGICAL HISTORY OF bilateral partial knee replacement. PAST SURGICAL HISTORY OF hysterectomy PAST SURGICAL HISTORY OF Right 1989 tibialis anterior tendon PAST SURGICAL HISTORY OF 2014 straightening pronated feet REMOVAL GALLBLADDER REMV CATARACT EXTRACAP,INSERT LENS Bilateral S ANTERIOR TIBIALIS TENDON TONSILLECTOMY & ADENOIDECTOMY FAMILY HISTORY Problem Relation Age of Onset Breast Cancer No Family History no known family h/o breast or ovarian cancer Cancer Mother Cerebral Embolism Father CVA, aneurysm, [place], other (normal [Other]) Sister None Sister None Sister Social History Tobacco Use Smoking status: Never Smokeless tobacco: Never Substance Use Topics Alcohol use: Yes Comment: week-ends Drug use: No Prior to Admission medications as of 12/20/23 0924 Medication Sig Last Dose Taking tiotropium bromide (SPIRIVA WITH HANDIHALER INHALATION) Inhale as instructed. Taking Yes ciprofloxacin HCl (CIPRO ORAL) Take by mouth. Taking Yes montelukast sodium (SINGULAIR ORAL) Take by mouth. Taking Yes ondansetron orally disintegrating (ZOFRAN ODT) 4 mg disintegrating tablet Take 1 tablet by mouth every 8 hours as needed. Taking Yes RINVOQ 15 mg tablet TAKE 1 TABLET BY MOUTH 1 TIME A DAY. Taking Yes celecoxib (CELEBREX) 200 mg capsule TAKE 1 CAPSULE BY MOUTH TWICE A DAY Taking Yes ergocalciferol 50,000 unit capsule (VITAMIN D2, DRISDOL) (take by mouth with food twice a week, ONECAPSULE ON SATURDAY AND ONE ON SATURDAY) FOR A TOTAL OF 8 WEEKS. Taking Yes levothyroxine (SYNTHROID) 75 mcg tablet TAKE 1.5 TABLETS ON SATURDAY, SATURDAY, SATURDAY, SATURDAY AND2 TABLETS THE OTHER 3 DAYS Taking Yes EPIPEN 2-PANCHITO 0.3 mg/0.3 mL (1:1,000) atIn Taking Yes LANSOPRAZOLE 30 mg capsule Take 1 capsule by mouth daily at bedtime. Taking Yes fluticasone (FLONASE) 50 mcg/actuation nasal spray 1 [place] daily at bedtime. in each nostril. Taking Yes Cholecalciferol, Vitamin D3, 1,000 unit ORAL Tab Take 1 tablet by mouth once daily. Taking Yes CITRACAL 500 MG (2,376 MG) EFFERVESCENT TAB Take one(1) tablet two(2) times daily. Taking Yes ADVAIR 250/50 DISKUS one puff bid Taking Yes zafirlukast (ACCOLATE) 20 mg tablet Take 1 tablet by mouth twice daily. Patient not taking: Reported on 12/20/2023 Not Taking No medication comments found. ALLERGIES Allergen Reactions Keflex [Cephalexin] Penicillins Objective PHYSICAL EXAM: VITALS: BP 132/84 Pulse 90 Temp (Src) 97.2 (Temporal) Resp 16 Ht 4' 8 (1.42m) Wt 198 lb 10.2 oz (90.1kg) SpO2 97% BMI 44.56 kg/(m^2). General: Alert and oriented, No acute distress Skin: Normal color, no rash, no lesions. HEENT: EOM, pupils equal, round and reactive. Cardiovascular: Normal S1 & S2, no rubs, murmurs or gallops. No JVD. Pulse regular. Lungs: Normal breath sounds, no wheezes or crackles. Abdomen: Soft, non-tender, no rigidity. Extremities: No deformity, no edema or tenderness, no joint swelling or clubbing. Neurological: Normal cognition and motor skills. Pulses: Carotid and radial pulses normal +2. Diagnostic tests reviewed for today's visit: Lab Value Units Date High Low HB No results within date range. HCT No results within date range. WBC No results within date range. PLT No results within date range. NA No results within date range. K No results within date range. GLUC No results within date range. BUN No results within date range. CREAT No results within date range. PTSEC No results within date range. INR No results within date range. APTT No results within date range. ALT No results within date range. AST No results within date range. TBILI No results within date range. TSH No results within date range. No results found for: HBA1C Most recent EKG Recent Results (from the past 8760 hour(s)) ECG COMPLETE Collection Time: 12/20/23 9:19 AM Result Value Ventricular Rate 74 Atrial Rate 74 P-R Interval 158 QRS Duration 94 QT Interval 382 QTC Calculation (Bazett) 424 Calculated P [place] 46 Calculated R Clinton 2 Calculated T [place] 102 Impression NORMAL SINUS RHYTHM POSSIBLE LEFT ATRIAL ENLARGEMENT NONSPECIFIC T WAVE ABNORMALITY ABNORMAL ECG Most recent PFT's 10/03/22 Impression: Moderate restrictive impairment is demonstrated. Note intact gas transfer. Please correlate with clinical and radiographic data. Underlying interstitial lung disease not excluded however findings may be related to body habitus. CT SHOULDER LEFT 10/26/23 IMPRESSION: 1. Reverse total shoulder arthroplasty with displaced glenoid component, similar to prior radiograph. 2. Small nodules throughout left lung measuring up to 4 mm. Instructions Given to Patient: Instructions located in the after visit summary. Patient given verbal and written preop instructions and voices comprehension and compliance. SIGNATURE: Louis Cates APRN.CNP PATIENT NAME: Carolina Gutierrez DATE: 12/20/2023 TIME: 9:59 AM [facility]06-21-2024 History and physical note* Louis Cates APRN.CNP - 12/20/2023 9:20 AM EDT HISTORY AND PHYSICAL EXAMINATION SERVICE DATE: 12/20/2023 SERVICE TIME: 9:59 AM PRIMARY CARE PHYSICIAN: Aline Guerrero MD REASON FOR VISIT: Carolina Gutierrez is a 63 year old female who is scheduled for Left - REMOVAL IMPLANT DEEP Left - INSERT CEMENT SPACER SHOULDER at the request of Dr. John Holly for consultation. My final recommendation will be communicated back to the requesting physician by way of shared medical record or letter. Assessment Patient has the following medical conditions which may affect merary-operative course: PONV (postoperative nausea and vomiting) Assessment: states meds work well Elevated blood pressure reading in office with white coat syndrome, without diagnosis of hypertension Assessment: stable, asymptomatic for CP, SOB, palpitations. States BP runs higher in medical offices. Last 5 Encounter BP Readings: Date: BP: 12/20/2023 132/84 05/07/2022 150/78 01/27/2014 120/80 05/06/2012 118/74 10/30/2011 116/76 Hyperlipidemia Assessment: no current medication, 11/18 LDL 129, wants to discuss with PCP prior to starting statin Asthma without status asthmaticus Assessment: stable and asymptomatic, uses inhalers. No recent URI. Lungs clear to auscultation, follows with pulmonology annually in [place] GERD (gastroesophageal reflux disease) Assessment: Managed and stable with current medication. Denies difficulty swallowing or any bleeding. HYPOTHYROIDISM NOS Assessment: stable with current medication regimen Diabetes (HCC) Assessment: Currently taking ozempic, takes on Saturdays, instructed to hold on January 03, restart following surgery. A1C today No results found for: HBA1C Anemia Assessment: Stable. Denies bleeding. Hemoglobin (g/dL) Date Value 05/07/2022 12.6 07/03/2007 13.7 10/10/2005 13.3 08/08/2005 14.1 Primary basal cell carcinoma (BCC) of right breast Assessment: underwent cryotherapy, states resolved Rheumatoid arthritis of multiple sites without rheumatoid factor (HCC) Assessment: follows with Dr. Neff, on Rinvoq. Stable. 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 Denies pain. History of pulmonary embolism Assessment: following bout COVID in 2019. Was on xarelto for a year, completed course of thinner. No recurrence. [place] Activity Status Index: METS: Walk indoors, such as around the house (1.75 METs) Do light work around the house, such as dusting or washing dishes (2.70 METs) Take care of self; that is eating, dressing, bathing, using the toilet (2.75 METs) Do moderate work around the house, such as vacuuming, sweeping floors, or carrying in groceries (3.50 METs) Climb a flight of stairs or walk up a hill (5.50 METs) Participate in moderate recreational activites, such as golf, bowling, dancing, doubles tennis, or throwing a baseball or football (6.00 METs) DASI Score: 22.2 Patient denies any chest pain or undue shortness of breath with the above physical activity. STOP-Bang Score: BMI greater than 35 kg/m^2 Patient over 50 years old Denies snoring loudly Denies feeling tired, fatigued, or sleepy during the daytime Has not been observed to stop breathing or choking/gasping during sleep Denies having high blood pressure Does not have a large neck Non-male patient STOP-Bang Score: 2 [id number] Score: Age: <65 Sex: female CHF history: No Hypertension history: No Stroke/TIA/thromboembolism history: No Vascular disease history: No Diabetes history: Yes [id number] Score: 2 ARISCAT Score: Age: 51-80 Preoperative SpO2: >=96% Respiratory infection in the last month: No Surgical incision: peripheral Duration of surgery: 2-3 hrs Emergency procedure: No ARISCAT Score: ANESTHESIA FINDINGS: Intubation History: No history of difficult intubation Significant Anesthesia Considerations: potential postop nausea/vomiting Airway History: No history of difficult airway most recent airway history - 01/23/22 care everywhere Final Airway Details Final airway type: endotracheal airway Successful airway: ETT ETT size: 7.0 mm Cuffed: yes Endotracheal tube insertion site: oral Successful intubation technique: direct laryngoscopy Blade: [place] Blade size: #3 Cormack-Lehane Classification: grade IIb - view of arytenoids or posterior of glottis only Placement verified by: auscultation, CO2 detection and visualization through the cords Tube secured: 20 CM at the lips Tube Secured with: tape I - PHYSICAL EVALUATION AIRWAY Patient intubated: No. Tracheostomy tube not present Mallampati: III. TM distance: <3 FB. Neck ROM: full ROM without neurological symptoms. Mouth opening: adequate. Short neck: yes. Thick neck: yes Delgadillo present: no Lip Bite Test: II Microretrognathia/Micronagthia/Recessed Chin: No DENTAL Additional comments: Caps/crowns. II - ANESTHESIA PLAN Anesthetic plan additional comments: *PACC/TCI - anesthesia choice. Beta Greg Monitoring Plan Post Procedure Analgesic Plan Informed Consent Anesthetic risks, benefits, alternatives, personnel and consent discussed: yes. Patient / Responsible Republican agrees to proceed: yes Patient / Surrogate agrees to blood products: Yes Discussed the possibility of lip / dental damage: yes Prepared for surgery: This patient is optimally prepared for surgery. CONSULTS: Patient does not require consults for optimization at this time. The Following Tests/Procedures Have Been Initiated: Orders Placed This Encounter Hemoglobin A1C Standing Status: Future Standing Expiration Date: 03/20/2024 Staphylococcus aureus & MRSA Screen, PCR, Nasal Standing Status: Future Standing Expiration Date: 03/20/2024 tiotropium bromide (SPIRIVA WITH HANDIHALER INHALATION) Sig: Inhale as instructed. ciprofloxacin HCl (CIPRO ORAL) Sig: Take by mouth. montelukast sodium (SINGULAIR ORAL) Sig: Take by mouth. semaglutide (OZEMPIC) 2 mg/dose (8 mg/3 mL) pen injector Sig: Inject 2 mg subcutaneously one time a week. 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 Patient denies any chest pain, shortness of breath, palpitations, fever/chills, nausea/vomiting, fatigue, or diarrhea. no pain at today's visit. stable and compliant with current medications REVIEW OF SYSTEMS: PAIN ASSESSMENT: General: No weight loss, malaise or fevers. Neuro: No history of TIA's, stroke, CAN MARKER tumor, impaired sensorium, hemiplegia, paraplegia or quadraplegia. No neurological symptoms or problems. 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 : Denies, No LMP recorded. Patient has had a hysterectomy. Endocrine: Hypothyroidism, diabetes Hematology: h/o PE, h/o anemia Oncology: right breast BCC (cryo) Psych: No history of psychiatric symptoms or problems. Musculoskeletal: RA, 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] Failed orthopedic implant, initial encounter ([facility]) [T85.890Z] , Body mass index is 44.53 kg/m . Skin: Negative for lesions, rash and itching. 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 Bilateral Wrist Pain Bilateral Hand Pain Family History of Gout Secondary Osteoarthritis of Multiple Sites Family History of Rheumatoid Arthritis Aileen Positive Rheumatoid Arthritis of Multiple Sites Without Rheumatoid Factor (Hcc) Postmenopausal Osteoporosis of Multiple Sites Long-Term Use of High-Risk Medication Cyclic Citrullinated Peptide (Ccp) Antibody Positive Rheumatoid Factor Positive Encounter for Long-Term (Current) Use of Nsaids Vitamin D Deficiency Personal History of Other Medical Treatment Bilateral Chronic Knee Pain Nausea Failed Orthopedic Implant (Hcc) S/P Reverse Total Shoulder Arthroplasty, Left Loose Orthopedic Implant ([facility]) Gerd (Gastroesophageal Reflux Disease) History of Pulmonary Embolism Hypertension Diabetes ([facility]cc) Anemia Asthma Without Status Asthmaticus Covid Immunization Dates Overdue - Covid-19 Vaccine ( season) Overdue since 03/01/2023 06/09/2021 Imm Admin: COVID-19 original vaccine, age 12+ yr, monovalent (PFIZER- BIONTECH - PURPLE TOP) 09/23/2020 Imm Admin: COVID-19 original vaccine, age 12+ yr, monovalent (PFIZER- BIONTECH - PURPLE TOP) 09/02/2020 Imm Admin: COVID-19 original vaccine, age 12+ yr, monovalent (PFIZER- BIONTECH - PURPLE TOP) PAST MEDICAL HISTORY Diagnosis Date Alopecia totalis Arthritis Asthma Heavy menses Obesity Rosacea Seasonal allergies PAST SURGICAL HISTORY Procedure Laterality Date APPENDECTOMY BX BREAST NEEDLE CORE W/O IMAGING GUIDANCE SPX 09/25/2007 left axillary lymph node HYSTERECTOMY HX both ovaries intact PAST SURGICAL HISTORY OF bilateral partial knee replacement. PAST SURGICAL HISTORY OF hysterectomy PAST SURGICAL HISTORY OF Right 1989 tibialis anterior tendon PAST SURGICAL HISTORY OF 2014 straightening pronated feet REMOVAL GALLBLADDER REMV CATARACT EXTRACAP,INSERT LENS Bilateral S ANTERIOR TIBIALIS TENDON TONSILLECTOMY & ADENOIDECTOMY <AGE 11 FAMILY HISTORY Problem Relation Age of Onset Breast Cancer No Family History no known family h/o breast or ovarian cancer Cancer Mother Cerebral Embolism Father CVA, aneurysm, [place], other (normal [Other]) Sister None Sister None Sister Social History Tobacco Use Smoking status: Never Smokeless tobacco: Never Substance Use Topics Alcohol use: Yes Comment: week-ends Drug use: No Prior to Admission medications as of 12/20/23 0924 Medication Sig Last Dose Taking tiotropium bromide (SPIRIVA WITH HANDIHALER INHALATION) Inhale as instructed. Taking Yes ciprofloxacin HCl (CIPRO ORAL) Take by mouth. Taking Yes montelukast sodium (SINGULAIR ORAL) Take by mouth. Taking Yes ondansetron orally disintegrating (ZOFRAN ODT) 4 mg disintegrating tablet Take 1 tablet by mouth every 8 hours as needed. Taking Yes RINVOQ 15 mg tablet TAKE 1 TABLET BY MOUTH 1 TIME A DAY. Taking Yes celecoxib (CELEBREX) 200 mg capsule TAKE 1 CAPSULE BY MOUTH TWICE A DAY Taking Yes ergocalciferol 50,000 unit capsule (VITAMIN D2, DRISDOL) (take by mouth with food twice a week, ONECAPSULE ON SATURDAY AND ONE ON SATURDAY) FOR A TOTAL OF 8 WEEKS. Taking Yes levothyroxine (SYNTHROID) 75 mcg tablet TAKE 1.5 TABLETS ON SATURDAY, SATURDAY, SATURDAY, SATURDAY AND2 TABLETS THE OTHER 3 DAYS Taking Yes EPIPEN 2-PANCHITO 0.3 mg/0.3 mL (1:1,000) atIn Taking Yes LANSOPRAZOLE 30 mg capsule Take 1 capsule by mouth daily at bedtime. Taking Yes fluticasone (FLONASE) 50 mcg/actuation nasal spray 1 [place] daily at bedtime. in each nostril. Taking Yes Cholecalciferol, Vitamin D3, 1,000 unit ORAL Tab Take 1 tablet by mouth once daily. Taking Yes CITRACAL 500 MG (2,376 MG) EFFERVESCENT TAB Take one(1) tablet two(2) times daily. Taking Yes ADVAIR 250/50 DISKUS one puff bid Taking Yes zafirlukast (ACCOLATE) 20 mg tablet Take 1 tablet by mouth twice daily. Patient not taking: Reported on 12/20/2023 Not Taking No medication comments found. ALLERGIES Allergen Reactions Keflex [Cephalexin] Penicillins Objective PHYSICAL EXAM: VITALS: BP 132/84 Pulse 90 Temp (Src) 97.2 (Temporal) Resp 16 Ht 4' 8 (1.42m) Wt 198 lb 10.2 oz (90.1kg) SpO2 97% BMI 44.56 kg/(m^2). General: Alert and oriented, No acute distress Skin: Normal color, no rash, no lesions. HEENT: EOM, pupils equal, round and reactive. Cardiovascular: Normal S1 & S2, no rubs, murmurs or gallops. No JVD. Pulse regular. Lungs: Normal breath sounds, no wheezes or crackles. Abdomen: Soft, non-tender, no rigidity. Extremities: No deformity, no edema or tenderness, no joint swelling or clubbing. Neurological: Normal cognition and motor skills. Pulses: Carotid and radial pulses normal +2. Diagnostic tests reviewed for today's visit: Lab Value Units Date High Low HB No results within date range. HCT No results within date range. WBC No results within date range. PLT No results within date range. NA No results within date range. K No results within date range. GLUC No results within date range. BUN No results within date range. CREAT No results within date range. PTSEC No results within date range. INR No results within date range. APTT No results within date range. ALT No results within date range. AST No results within date range. TBILI No results within date range. TSH No results within date range. No results found for: HBA1C Most recent EKG Recent Results (from the past 8760 hour(s)) ECG COMPLETE Collection Time: 12/20/23 9:19 AM Result Value Ventricular Rate 74 Atrial Rate 74 P-R Interval 158 QRS Duration 94 QT Interval 382 QTC Calculation (Bazett) 424 Calculated P Clinton 46 Calculated R Clinton 2 Calculated T Clinton 102 Impression NORMAL SINUS RHYTHM POSSIBLE LEFT ATRIAL ENLARGEMENT NONSPECIFIC T WAVE ABNORMALITY ABNORMAL ECG Most recent PFT's 10/03/22 Impression: Moderate restrictive impairment is demonstrated. Note intact gas transfer. Please correlate with clinical and radiographic data. Underlying interstitial lung disease not excluded however findings may be related to body habitus. CT SHOULDER LEFT 10/26/23 IMPRESSION: 1. Reverse total shoulder arthroplasty with displaced glenoid component, similar to prior radiograph. 2. Small nodules throughout left lung measuring up to 4 mm. Instructions Given to Patient: Instructions located in the after visit summary. Patient given verbal and written preop instructions and voices comprehension and compliance. SIGNATURE: Louis Cates APRN.[email or web address] PATIENT NAME: Carolina Gutierrez DATE: 12/20/2023 TIME: 9:59 AM documented in this encounterUniversity Hospitals [facility]05-23-2024 Telephone encounter Note * Telephone Encounter - Saadia Hall MA - 11/21/2023 1:39 PM EDT Pt was notified via . [facility]05-23-2024 Miscellaneous Notes* Telephone Encounter - Saadia Beach MA - 11/21/2023 1:39 PM EDT Pt was notified via . * Telephone Encounter - Stevo Neff MD - 11/21/2023 11:31 AM EDT Please Call patient if MyChart note not read to review results/released to My Chart if tests completed at [facility]: Bone mineral density shows osteopenia (improved/was osteoporosis). Happy to further review and discuss at follow up visit. Continue rest of treatment plan per instructions at last office visit. Thank you. Sherrieebue 11/15/23 osteopenia (was osteoporosis) L1-L4 1.238g/cm2, tscore 0.5; Dual fem mean 0.763g/cm2, tscore-2; Left fem total 0.817g/cm2, tscore1.6, zscore-0.7; Left total fem 0.843g/cm2, tscore-1.3, zscore-0.8; Left troch 0.807g/cm2, tscore -2.1, zscore -1.7; Right neck fem 0.713g/cm2, tscore-2.3, zscore-1.5; Left total fem 0.807g/cm2, tscore-1.6, zscore-1.1; Right troch 0.603g/cm2, tscore-2.2, zscore-1.7; 10/14/23 saw ortho drained left shoulder (pain in Left shoulder x 5months, since replacement) may proceed with shoulder revision if no infection. 10/14/23 high esr 45, crp 3.4, DDimer 4180;negative synovial fluid crystals, quantiferon tb * Telephone Encounter - Mary Layne LPN - 11/20/2023 2:41 PM EDT Received BMD from [facility]. Results placed on your desk for review. documented in this encounterUniversity Hospitals Cleveland [facility] Center05-23-2024 Telephone encounter Note * Telephone Encounter - Stevo Neff MD - 11/21/2023 11:31 AM EDT Please Call patient if MyChart note not read to review results/released to My Chart if tests completed at [facility]: Bone mineral density shows osteopenia (improved/was osteoporosis). Happy to further review and discuss at follow up visit. Continue rest of treatment plan per instructions at last office visit. Thank you. [facility] 11/15/23 osteopenia (was osteoporosis) L1-L4 1.238g/cm2, tscore 0.5; Dual fem mean 0.763g/cm2, tscore-2; Left fem total 0.817g/cm2, tscore1.6, zscore-0.7; Left total fem 0.843g/cm2, tscore-1.3, zscore-0.8; Left troch 0.807g/cm2, tscore -2.1, zscore -1.7; Right neck fem 0.713g/cm2, tscore-2.3, zscore-1.5; Left total fem 0.807g/cm2, tscore-1.6, zscore-1.1; Right troch 0.603g/cm2, tscore-2.2, zscore-1.7; 10/14/23 saw ortho drained left shoulder (pain in Left shoulder x 5months, since replacement) may proceed with shoulder revision if no infection. 10/14/23 high esr 45, crp 3.4, DDimer 4180;negative synovial fluid crystals, quantiferon tb [facility]05-22-[facility] Telephone encounter Note* Telephone Encounter - Mary Layne LPN - 11/20/2023 2:41 PM EDT Received BMD from [facility]. Results placed on your desk for review. [facility]05-10-2024 Telephone encounter Note* Telephone Encounter - Lanny Pérez RN - 11/08/2023 8:33 AM EDT Call placed to pt per office request. Pt has questions regarding two stage revision, answered pt questions as needed after speaking with Dr. Holly, explained to pt that if tissue cultures are negative in OR we would do one stage revision if positive of course two stage revision, direct office number provided for support or additional questions or concerns. [facility]05-10-2024 Miscellaneous Notes* Telephone Encounter - Lanny Pérez RN - 11/08/2023 8:33 AM EDT Call placed to pt per office request. Pt has questions regarding two stage revision, answered pt questions as needed after speaking with Dr. Holly, explained to pt that if tissue cultures are negative in OR we would do one stage revision if positive of course two stage revision, direct office number provided for support or additional questions or concerns. documented in this encounterUniversity Hospitals Cleveland [facility] Center05-06-2024 History of Present illness Narrative* John Holly MD - 11/04/2023 9:35 AM EDT [facility] [place] NOTE Department of Orthopaedics John Hloly [place] [facility] Gutierrez CLINIC NO.: [id number] DATE: 11/04/2023 Interval Hx:Carolina Gutierrez is back for evaluation of her L shoulder. Patient has a history of L rTSA performed on 05/20/[address] Dunbar at [facility] orthopedics with subsequent catastrophic failure of glenosphere. Our last visit was on 10/14/2023 and we discussed revision L rTSA. Underwent infectious workup and CT L shoulder. Synovial fluid analysis resulted with 1177 WBCs, 232833 RBCs, 77% PMNs, no crystals. NGTD on culture. Labs significant for ESR 45, CRP 3.4. Blood cultures were also negative. 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 Had post-procedureinfection afterwards treated with bactrim which will conclude today. PHYSICAL EXAMINATION: Incision appears well-healed. Forward elevation is passively to 40 and actively to 30 . External rotation is passively to 40 and actively to 40 . Internal rotation is to belt line. her strength is 4 in internal rotation , 4 in external rotation and 4 in abduction in the plane of scapula. Belly press test is positive. Upper extremity has intact sensory and motor function and has good perfusion distally. RADIOGRAPHIC STUDIES: all previous imaging studies were reviewed. CT significant for glenosphere failure with significant glenoid bone loss. ASSESSMENT: Encounter Diagnosis ICD-10-CM 1. Loose orthopedic implant, subsequent encounter T84.039D 2. S/P reverse total shoulder arthroplasty, left Z96.612 PLAN: I told Carolina Gutierrez that his her shoulder symptoms is due to loose glenoid component. We aspirated her shoulder that resulted in elevated cell count and 77% neutrophil and she had elevated ESR and CRP. She is telling me that she was going to an upper respiratory infection and she was prescribed a course of antibiotics and steroids a week prior to our aspiration. Her cultures have been negative from the aspiration but it is possible that this was affected by being on oral antibiotic. 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 Overall, risk of recurrence of infection and having significant bone loss that requires a custom implant is very high and therefore best option would be to consider a two-stage revision arthroplasty. We discussed that in first stage we will remove the loose implant and place an antibiotic spacer and then after 6 weeks of IV antibiotics, we transition her on 4 weeks of oral and 2 weeks of antibiotic holiday and we will aspirate her shoulder and if results are negative we can proceed with replantation. CT scan will be done after implant removal and will make a decision regarding need for custom 3D printed implant based on that CT scan. We discussed risk of implant loosening, infection, dislocation and acromial stress fracture with the patient. After considering all the options and alternatives, patient decided proceed with surgery. We obtained a consent form andwill get this scheduled for her in coming weeks. She potentially can be a candidate for revision study and work and obtain consent forms at the time of surgery. And if any questions or concerns arise, she should not hesitate to call. John Holly M.D. M.M.Sc. Shoulder and Elbow Surgeon Orthopaedic Surgery Department [place], [place] [address] Tell: [phone] Appt:[phone] documented in this encounterUniversity Hospitals Cleveland [facility] Center05-01-2024 Telephone encounter Note * Telephone Encounter - Lanny Pérez RN - 10/30/2023 8:50 AM EDT Call placed to pt due to incidental findings on shoulder CT. No answer, called twice. Left messagedadvising pt to follow up with PCP as pt PCP is out of network. Direct office number provided for additional questions or concerns. [facility]05-01-2024 Miscellaneous Notes* Telephone Encounter - Lanny Pérez RN - 10/30/2023 8:50 AM EDT Call placed to pt due to incidental findings on shoulder CT. No answer, called twice. Left messagedadvising pt to follow up with PCP as pt PCP is out of network. Direct office number provided for additional questions or concerns. documented in this encounterUniversity Hospitals Cleveland Medical Center04-27-2024 NoteHNO ID: [id number] Author: RUBY MELGAR RT(R) Service: Radiology Author Type: Technologist Type: Progress Notes Filed: 10/26/2023 08:42 Note Text: Radiology Service Progress Note PATIENT NAME: Carolina Gutierrez DATE OF SERVICE: October 26, 2023 TIME: 8:42 AM PATIENT IDENTITY VERIFICATION COMPLETED USING TWO (2) IDENTIFIERS: Name and Date of confirmed by patient verbally and Name and Date of confirmed by identification band. FALL SCREENING: Has the patient had 2 falls in the last year or 1 fall with injury or currently using an Ambulatory Assistive Device (Walker, Cane, Wheelchair, Crutches, etc.)? No PATIENT GENDER DATA: Female. status: : No status: NO. PATIENT RELEVANT IMPLANT DATA REVIEWED: Not Applicable PATIENT PRESENTS WITH AN IMPLANTABLE OR ATTACHED HABITAT CONSERVATION PLANNER: No RADIOLOGY DEPARTMENT: CT; Exam(s) Completed: Upper extremity PERIPHERAL IV DATA: Not applicable SIGNED BY: RT Elias(R) October 26, 2023 8:42 [id number] Telephone encounter Note* Telephone Encounter - Geneva Cabello LPN - 10/21/2023 10:07 AM EDT Called and spoke to patient. She is aware of message below from . Patient verbalized understanding. Patient requested warren nuñez to send over the results of her bone density for 04/22. [facility]04-22-2024 Miscellaneous Notes* Telephone Encounter - Geneva Cabello LPN - 10/21/2023 10:07 AM EDT Called and spoke to patient. She is aware of message below from . Patient verbalized understanding. Patient requested warren luis enrique to send over the results of her bone density for 04/22. * Telephone Encounter - Jessenia Allison RN - 10/18/2023 10:24 AM EDT Left message on machine for pt to call office Please await call back ' Stated message sent to my chart * Telephone Encounter - Stevo Neff MD - 10/17/2023 9:21 PM EDT Please Call patient if MyChart note not read to review results/released to My Chart if tests completed at [facility]: High inflammatory tests- maybe associated with recent infection, see primary care provider, ortho. Rest of labs stable. Hold rinvoq during any infection or surgery. Please obtain results of bone mineral density from [facility] (~03/2023), only received 03/2021 results Happy to further review and discuss at follow up visit. Continue rest of treatment plan per instructions at last office visit. Thank you. 10/14/23 saw ortho drained left shoulder (pain in Left shoulder x 5months, since replacement) may proceed with shoulder revision if no infection. 10/14/23 high esr 45, crp 3.4, DDimer 4180;negative synovial fluid crystals, quantiferon tb documented in this encounterUniversity Hospitals Cleveland [facility] Center04-19-2024 Telephone encounter Note * Telephone Encounter - Jessenia Allison RN - 10/18/2023 10:24 AM EDT Left message on machine for pt to call office Please await call back ' Stated message sent to my chart [facility]04-18-2024 Telephone encounter Note* Telephone Encounter - Stevo Neff MD - 10/17/2023 9:21 PM EDT Please Call patient if MyChart note not read to review results/released to My Chart if tests completed at [facility]: High inflammatory tests- maybe associated with recent infection, see primary care provider, ortho. Rest of labs stable. Hold rinvoq during any infection or surgery. Please obtain results of bone mineral density from [facility] (~03/2023), only received 03/2021 results Happy to further review and discuss at follow up visit. Continue rest of treatment plan per instructions at last office visit. Thank you. 10/14/23 saw ortho drained left shoulder (pain in Left shoulder x 5months, since replacement) may proceed with shoulder revision if no infection. 10/14/23 high esr 45, crp 3.4, DDimer 4180;negative synovial fluid crystals, quantiferon tb [facility]04-15-2024 History of Present illness Narrative* John Holly MD - 10/14/2023 8:21 AM EDTAssociated Order(s): Large Joint Arthro/Inj: L shoulder joint Post-Procedure Diagnose(s): Status post reverse total replacement of left shoulder John Holly M.D. M.M.Sc. [employer] of Orthopaedic Surgery at [place] [address] Office: [phone] Consult requested for an opinion regarding the evaluation and treatment of the above patient. My final impression and recommendations will be communicated back to the requesting physician by way of the shared medical record or letter via US mail. Patient info: Carolina Gutierrez ([id number]) Service date: 10/14/2023 Referred by: No referring provider defined for this encounter. PCP: MD Cesar Chief Complaint: Left shoulder pain. HPI:Carolina Gutierrez is a 62 year old Right hand dominant female with hx RA who presents with 5 month history of Left shoulder pain. Patient has a history of L rTSA performed on 05/20/[address] Dunbar at [facility] orthopedics. History of prior injury no. Patient states that she has had pain since getting her L shoulder replaced. Patient states that her left shoulder has never felt right ever sincegetting it replaced. She states that she was able to get out of her sling on postoperative day 1 and start motion exercises. She denies any prior left shoulder surgeries. Denies any trauma or falls. Denies any fevers or chills. Endorses history of diabetes. Denies use of anticoagulation. Denies smok ing history.she is currently recovering from a cold and was started on oral Doxycycline for 3 weeks. She is currently taking celecoxib. Most recent shoulder imaging was completed on 10/14/2023 (XR SHOULDER LIMITED 2V AP/TRUE AP LEFT) . In the past (based on all medication history on file), Carolina has tried the following anti-inflammatory medications (not necessarily for this reason for visit): celecoxib, prednisone, triamcinolone acetonide. She had Asthma and RA and she is currently on Rinvoq for RA and not taking any steroids. She has osteoporosis and currently on prolia every 6 month and hasgotten two injections. Other pertinent Hx: Employer And Job Title: [employer] (No job title specified) Years Of Education Completed: Not specified Marital Status: with 3 children BWC: no Physical Therapy: Corticosteroid Injections: History of Smoking: Not specified History of frequent fall: no How many falls in the past 1 year: 0 Prior treatments: Modified Activity REVIEW OF SYMPTOMS: Constitutional: Any recent fevers? Negative Cardiovascular: Any chest pain? Negative Respiratory: Any shortness or breath? Negative Gastrointestinal: Any abdominal discomfort? Negative Integumentary: Any recent skin changes or rashes? Negative Neurologic: Any numbness or tingling? Negative Endocrine: Any diagnosis of diabetes? Negative Hematologic: Any recent bleeding episodes? Negative FAMILY HISTORY Problem Relation Age of Onset Breast Cancer No Family History no known family h/o breast or ovarian cancer Cancer Mother Cerebral Embolism Father CVA, aneurysm, [place], other (normal [Other]) Sister None Sister None Sister PAST MEDICAL HISTORY Diagnosis Date Alopecia totalis Arthritis Asthma Heavy menses Obesity Rosacea Seasonal allergies PAST SURGICAL HISTORY Procedure Laterality Date BX BREAST NEEDLE CORE W/O IMAGING GUIDANCE SPX 09/25/2007 left axillary lymph node HYSTERECTOMY HX both ovaries intact PAST SURGICAL HISTORY OF bilateral partial knee replacement. S ANTERIOR TIBIALIS TENDON ALLERGIES Allergen Reactions Keflex [Cephalexin] Penicillins Problem List: reviewed and updated. Social History: Social History Tobacco Use Smoking status: Never Smokeless tobacco: Never Substance Use Topics Alcohol use: Yes Comment: week-ends Drug use: No Current Outpatient Medications Medication Sig ondansetron orally disintegrating (ZOFRAN ODT) 4 mg disintegrating tablet Take 1 tablet by mouth every 8 hours as needed. RINVOQ 15 mg tablet TAKE 1 TABLET BY MOUTH 1 TIME A DAY. celecoxib (CELEBREX) 200 mg capsule TAKE 1 CAPSULE BY MOUTH TWICE A DAY ergocalciferol 50,000 unit capsule (VITAMIN D2, DRISDOL) (take by mouth with food twice a week, ONECAPSULE ON SATURDAY AND ONE ON SATURDAY) FOR A TOTAL OF 8 WEEKS. levothyroxine (SYNTHROID) 75 mcg tablet TAKE 1.5 TABLETS ON SATURDAY, SATURDAY, SATURDAY, SATURDAY AND2 TABLETS THE OTHER 3 DAYS EPIPEN 2-PANCHITO 0.3 mg/0.3 mL (1:1,000) atIn LANSOPRAZOLE 30 mg capsule Take 1 capsule by mouth daily at bedtime. zafirlukast (ACCOLATE) 20 mg tablet Take 1 tablet by mouth twice daily. fluticasone (FLONASE) 50 mcg/actuation nasal spray 1 [place] daily at bedtime. in each nostril. Cholecalciferol, Vitamin D3, 1,000 unit ORAL Tab Take 1 tablet by mouth once daily. Doxycycline Monohydrate 40 mg capsule Take 1 capsule by mouth. CITRACAL 500 MG (2,376 MG) EFFERVESCENT TAB Take one(1) tablet two(2) times daily. ADVAIR 250/50 DISKUS one puff bid No current facility-administered medications for this visit. General Physical Exam: There were no vitals taken for this visit. No weight on file for this encounter. Constitutional: Pleasant, well-appearing, no acute distress. Resp: breathing is unlabored without audible wheeze Vascular: Normal pedal and radial pulses, no cyanosis, no venous stasis changes Skin: No overlying skin change, ecchymosis, or erythema. Psychiatric: Pleasant, direct, appropriate mood and affect Focused Musculoskeletal/Neurologic exam: Left Shoulder Atrophy/asymmetry No Scapular dyskinesia No AC tenderness No ROM (Passive/Active): FE (degree) 30/40 ER (degree) 40/40 ER Lag (degree) 0 IR (degree) belt line Strength (1-5) ABD in plane of scapula 4/5 ER 4/5 IR 4/5 Provocative tests: Job s test Positive Neer and Lovett test Positive Belly press test Positive O Jose s test Positive Speed's test Positive Hornblower's sign Negative Cross Body Adduction Positive Apprehension Not tested Sulcus Not tested Load and Shift Not tested Nerve deficit (motor/sensory) Radial n. Negative Median n. Negative Ulnar n. Negative Axillary n. Negative Vascular Distal perfusion normal Contra-lateral shoulder: within normal limits Imaging Studies: All relevant imaging studies have been reviewed and interpreted by myself and discussed with the patient. Radiographic studies: XR of the Left Shoulder was reviewed. 3 view x-rays show a rTSA with following details: Humeral osteolysis Negative Humeral loosening Negative Glenoid osteolysis Positive Glenoid Loosening Positive, glenoid component not in bone Periprosthetic fracture Negative Scapular fracture Negative Dislocation Negative Subluxation Negative Soft tissue swelling Positive Risk profile: Obesity Unknown Risk High: BMI > 40 Moderate: BMI 30-40 Normal: BMI < 30 Diabetes normal High: A1C > 8 Moderate: A1C 7-8 Normal: A1C < 7 Smoking normal High: Current smoker Normal: Non smoker Anemia normal High: Hgb < 11.5 (women) N/A: Hgb >= 11.5 (women) Nutritional Status normal High: Alb<3.4, or prealb<15, or serum transferrin<200, or total lymphocyte count<1500 Normal: normal labs COPD normal High: dx of COPD Normal: no dx of COPD MRSA normal High: dx of MRSA or positive lab test Normal: no MRSA CKD normal High: eGFR<60 Moderate: eGFR 60-89 Normal: eGFR>90 Hx of DVT / PE normal High: dx of DVT / PE Normal: no dx of DVT / PE Narcotics Use Moderate Risk High:NarxCare >=300 Moderate: 100-299 Normal: 0-99 LAISHA normal High: dx of LAISHA N/A: no dx of LAISHA Coagulation normal High:PT Sec>13, or PT INR>1.3, or APTT>32.4, or Plt ct<150k Moderate: on anticoag but none of the above Normal: none Hypertension normal High: dx of Chronic Htn Normal: no dx of Chronic Htn CHF normal High: dx of CHF Normal: no dx of CHF Obesity: height and/or weight are out of date (There is no height and/or weight reading in the [id number] days, so the below BMI readings may be inaccurate) BMI Readings from Last 3 Encounters: 05/07/22 : 39.86 kg/m 01/27/14 : 35.95 kg/m 05/06/12 : 34.98 kg/m NarxCare score NARX Narcotics: 200 (10/14/2023 8:18 AM) Hg A1C: No results found for: HBA1C Hg/Hct: Hematocrit (%) Date Value 05/07/2022 41.1 07/03/2007 40.2 10/10/2005 39.8 08/08/2005 42.5 Alcohol Hx: Alcohol Use: Yes (week-ends) DMARDS: upadacitinib Candidacy for outpatient arthroplasty: no Assessment: Encounter Diagnosis ICD-10-CM 1. Status post reverse total replacement of left shoulder Z96.612 BODY FLUID CULTURE AND GRAM STAIN SYNOVIAL FLUID, ROUTINE CT SHOULDER WO IVCON LEFT COMPLETE BLOOD COUNT AND DIFFERENTIAL SEDIMENTATION RATE, WESTERGREN C-REACTIVE PROTEIN D-DIMER Plan: The nature of the problem and treatment options available were discussed in detail with the patient. Patient presents 5 months s/p left R TSA at OSH. Patient with complex problem as noted on radiographs with clear hardware failure of glenosphere. Humeral stem appears well fixed on radiographs. Given this, we will rule out any signs of infection at this time by obtaining labs CBC, D- dimer, ESR, CBC and a CT left shoulder without contrast to further evaluate the bone. Under sterile conditions, a left shoulder aspiration was performed. Patient tolerated procedure well. Once infectious workup complete we will consider revision surgery. If negative for infection, we will consider a revision reverse total shoulder arthroplasty in the form of a glenosphere revision and we will evaluate thestem component for any loosening intraoperatively. If positive for infection, we will consider a two-stage revision with explant of hardware and placement of antibiotic spacer. Until then, we will obtain workup and have patient follow-up once workup complete. Patient verbalized understanding and agrees with plan. All questions answered. If any more questions or concerns arise, they should not hesitate to call. Other pre-op consultations: None Resident physician: Sridhar Mcnamara MD Large Joint Arthro/Inj: L shoulder joint Informed Consent Consent Obtained: Verbal [place] Protocol A moment to CARE was completed. SIGN IN Sign in communication not applicable due to emergent procedure. Personnel directly involved with the procedure wore the appropriate PPE. Special Equipment: Yes Patient/Surrogate Stated/Verified: Patient name, Date of and Relevant allergies TIME OUT Intended patient and procedure match the source document(s). Consent documented and matches the intended procedure. Relevant labs, photos, and/or imaging studies have been reviewed. Correct side/site marked and visible. Medications required for procedure verified. Fire risk assessed and interventions discussed. Implant(s) inserted. Correct implant(s) confirmed including size and side. 10/14/2023 9:16 AM The procedure site was prepped in the usual sterile fashion. Site: L shoulder joint Aspirate: 5 mL bloody; sent for lab analysis and sent for Synovasure analysis Outcome: Tolerated well, no immediate complications Post-injection instructions were reviewed with the patient and the patient voiced understanding of these instructions. SIGN OUT All specimen containers correctly labeled. All instruments, equipment, possible retained foreign bodies accounted for. Post-procedure follow-up management communicated and Plan of Care Visit completed when applicable John Holly M.D. MY[facility]MY[facility]Sc. Shoulder and Elbow Surgeon Orthopaedic Surgery Department [place], [place] [address] Tell: [phone] Appt:[phone] 10/14/2023 8:21 AM CC: documented in this encounterUniversity [facility]als [facility]04-15-2024 History of Present illness Narrative* Rosana Lancaster Tech - 10/14/2023 8:00 AM EDT Radiology Service Progress Note PATIENT NAME: Carolina Gutierrez DATE OF SERVICE: October 14, 2023 TIME: 8:02 AM PATIENT IDENTITY VERIFICATION COMPLETED USING TWO (2) IDENTIFIERS: Name and Date of confirmedby patient verbally. FALL SCREENING: Has the patient had 2 falls in the last year or 1 fall with injury or currently using an Ambulatory Assistive Device (Walker, Cane, Wheelchair, Crutches, etc.)? No PATIENT GENDER DATA: Female. status: : No status: NO. PATIENT RELEVANT IMPLANT DATA REVIEWED: Not Applicable PATIENT PRESENTS WITH AN IMPLANTABLE OR ATTACHED HABITAT CONSERVATION PLANNER: No RADIOLOGY DEPARTMENT: General X-ray: Exam(s) Completed: Upper Extremity X- Ray(s): Shoulder, AP / TRUE AP / AXILLARY left PERIPHERAL IV DATA: Not applicable SIGNED BY: Rudy Quesada October 14, 2023 8:02 AM documented in this encounterUniversity Hospitals [facility]04-02-2024 Miscellaneous Notes* Telephone Encounter - Stevo Neff MD - 10/01/2023 7:55 AM EDT Please call and schedule Follow up visit for rheumatoid arthritis/osteoporosis in 6months with [facility] or me Patient has orders for nonfasting labs this month/will complete at [facility] Please obtain results of bone mineral density from [facility] (~03/2023), only received 03/2021 results Thank you. documented in this encounterUniversity Hospitals [facility]04-02-2024 Instructions* Patient Instructions* Stevo Neff MD - 10/01/2023 7:52 AM EDT May apply over the counter arthritis creams and or patches (biofreeze, icy hot, asper cream, tiger balm, capsacin, lidocaine, salon pas, voltaren gel, etc.) or over the counter pain patches to painful joints up to four times a day. Avoid contact with eyes. May take Extra Strength acetaminophen 500mg every 4-6hours for joint pain. Do not exceed 3000mg /day. Decrease stress Improve sleep May apply heat/ice 20minutes on and off to areas of pain Avoid aggravating triggers If needed, may take Calcium 1200mg daily with food in DIVIDED doses If labs normal, take Vitamin D 4000 International Units daily with food Celebrex with food for pain up to twice a day See ortho Rinvoq daily Please hold rinvoq if on antibiotics or if you have any signs/symptoms of infection. Recommend goal: exercising 30minutes 3-5 times a week Recommend weight-bearing aerobic exercises such as walking, dancing, low impact aerobics, elliptical machine, stair climbing, gardening, biking, water exercises flexibility exercises and strength training exercises Recommend avoiding high impact exercises such as jumping, running or jogging or movements where youbend forward and twist the waist, for instance- touching your toes, sit-ups, using row machine skilled nursing pain recommendations per primary care provider/pain clinic Increase water prior and 1week after prolia Prolia every 6months, last one ~summer 2021, Nonfasting labs as scheduled Thank you. BONE MINERAL DENSITY PATIENT INSTRUCTIONS Bone mineral density testing measures the amount of calcium in certain parts of your bones. This information determines how strong your bones are. The test is used to detect osteoporosis, a disease in which the bone's mineral content and density are low, increasing a person's risk of fractures. Thelumbar spine (lower back) and the hip are the skeletal sites usually examined. For the test, remember that: 1. You cannot take this test if you are . 2. Eat a normal diet on the day of the test. 3. Take your medications as you normally would. 4. DO NOT take calcium supplements (such as Tums) for 24 hours before the test. 5. On the day of the test, leave valuables (jewelry or credit cards) at home. 6. The test should be performed prior to oral, rectal or IV contrast studies, or at least 7 days after any of these studies. For the test, you may be asked to wear a hospital gown. You will lie on your back, on a padded table, in a comfortable position. Generally, you can resume your usual activities immediately. documented in this encounterUniversity [facility]als [facility]04-02-2024 History of Present illness Narrative* Stevo Neff MD - 10/01/2023 7:20 AM EDT THIS IS A AMBULATORY VIRTUAL VISIT Patient has verbally agreed/consented to this virtual encounter, not originating from a related Evaluation & Management service provided within the previous 7 days. NOTE: Cannot be used if an Evaluation & Management service or procedure is planned within the next 24 hours. I have communicated my name and active licensure. The patient's identity and physical location wereverified at the time of this visit. Either the patient or their legal communications representative has been informed of the risks and benefits of -- and alternatives to -- treatment through a remote evaluation andconsents to proceed with the evaluation remotely. It required patient-provider interaction for the medical decision making as documented below. Persons Present: self (in home) Provider: (in office) VIRTUAL VISIT Follow up for rheumatoid arthritis/+RF/low vitamin D/high crp Today's visit 10/01/23:not seen in 2years. Due for labs. Much improved with rinvoq (occasional nausea), celebrex twice a day, vitamin D script now taking vitamin D 2000 International Units daily with food, synthroid, last week recent oral steroids and doxycycline for cold. Had bmd 03/2023. Due for next prolia 10/08/23 with primary care provider. Did fine with last prolia. No dental work planned. Not taking antibiotics. No signs or symptoms of infection. Asthma stable. Recently eye exam, s/p YAG for both eyes recently, will get new glasses. Has orders for labs this month Warren nuñez 07/15/23 low potassium 3.4;normal wbc 9.7, hgb 12.6, plts 278, glucose 100, creat 0.5,calcium 9, alkaline phosphatase 55, ast 17, alt 15, crp<1 (normal<1.9mg/dL), esr 19 (NL0-34mm/hr), vitamin D 31.6; 05/07/22 +RF26, +CCP 205, crp 0.9 (1.3), wbc 14.66 (7.11);low vitamin D 27.3;normal rest of cbc, cmp, esr 16, uric acid 3, vitamin b12-630;negative aileen ifa, hepatitis panel, quantiferon tb; 100% improvement from rinvoq. Goint to anytime fitness walking on treadmill and bike and leg raisesfor exercise. Mild leg edema/ swelling. Chronic current pain in knees, shoulders, better hands/wrists Reports pain 1/10. Has few min minimal AM stiffness. Feels safe at home. Has enough food, supplies and medications. Overall mildly uncomfortable but happy with rheum care. No falls/fx/trauma/illness/oral sores/rash/hairloss/jaw pain/dysphagia/epistaxis/hemoptysis since last visit. No adverse effects with meds. No other complaints. Patient denies fever, chills, cp, dyspnea, nausea, vomiting, night sweats, scalp tenderness, visual changes, moreland, bowel/bladder changes, weight changes or other complaints. Last visit supportive care, improved with rinvoq/continue daily, improved with prednisone/take for flares, improved with celebrex/increase to twice a day if helpful/tolerated, prolia every 6months/next due ~05/2022, calcium/vitamin D daily, see ortho, start prn heat/ice/otc arthritis creams,start low impact weightbearing exercise as tolerated, avoid aggravating triggers, May 07, 2022 SUBJECTIVE Ms. Gutierrez is a 61 year old female who presents for rheumatoid arthritis eval. eczema back of knees/antecubital area as a child Saw years ago for alopecia and +AILEEN (1:160). alopecia start in 2000 - initially hair thinning then within 2 weeks completely lost all her hair (at the time she had mother , marital problems). Tried topical medications - no response. no hair on head, arms and just now getting hair on eyebrows back. 2018 pain in the both hands/wrists, L shoulder, Saw and Burning pain and swelling of hands/wrists with red blotch on back of hand L shoulder rotator cuff tear due for surgery, no scheduled yet Improved with prednisone x 1year, tapered 2019, recently on prednisone for +COVID19 in 03/2022, then treated with paxlovid 01/23/22 s/p R TKR for bone on bone, dislocation, no history of steroid injection Rinvoq 2019-presents with good response with hands/shoulders,knee pain 100% improvement with med Celebrex twice a day when working, now taking once a day with good response Calcium once a day Vitamin D 1000 International Units daily with food Prolia summer Abnormal Bone mineral density cori years ago Reports pain 1/10 at the worst 10/10 No falls/fx/trauma/illness/oral sores/rash/hairloss/jaw pain/dysphagia/epistaxis/hemoptysis. No adverse effects with meds. No other complaints. Patient denies fever, chills, cp, dyspnea, nausea, vomiting, night sweats, scalp tenderness, visual changes, moreland, bowel/bladder changes, weight changes or other complaints. COMPLETE REVIEW OF SYSTEMS: RHEUM. ROS: Joint pain: yes hands, wrists, knees, L shoulder Joint swelling: yes back of hands, wrists, shoulders, elbows Am stiffness: yes 20-25minutes Low back pain: no Dactylitis: no H/o precedent/frequent infection(s): as above Enthesopathy/Robertson's/heel/plantar tenderness: no Skin thickening, psoriasis, photosensitivity, purpura: eczema back of knees/antecubital area as a child Nail changes: no Alpecia, patchy: yes for years 24y/o, when when mother Eye inflammation: glasses SICCA: no Oral/nasal/genital ulcers: upper lip sore/laceration bite from eating GI problems-diarrhea/bleeding/IBD/Gluten intolerence/Dysphagia: no Raynaud's phenomenon/digital ulcers: no Organ inv-Serositis: copd Lung disease/ILD: copd Myopathy/proximal muscle weakness: no Abnormal Urine or urethritis: no Renal/liver disease: no CAN MARKER/PNS/sz/cva/cancer disease: no HEME-Cytopenias/LAD/Clots: +PE 07/2020 with 1st +COVID19 infection 05/2020 was on oxygen for 9months Fevers: no Fatigue: yes, sleep 6-7hr/night PMR/GCA ROS: negative Patient denies history of Gout or Pseudogout, Psoriasis, Rheumatic Fever, GERD, PUD, Liver Disease,Hepatitis , Kidney Disease, Kidney Stones, HTN, CAD, Dyslipidemia, PAD, Sinusitis, TB infection or exposure, Pneumonias, Anemia, Seizures, Stroke, MS, Clots, Cancer, Transfusions, Tattoos , and Alcohol dependency. Other ROS:The remainder of the review of systems is negative. All other reviewed and negative other than HPI. PATIENT REPORTS: Cardiac stress test:no Breast exam:negative Pap exam: normal, last menses 33y/o with hysterectomy for prolapsed uterus, no taking hormones; G4, P3, 1miscarriage Colonoscopy: 2019 diverticulosis Bone Density:cori ~2019 osteoporosis History of Fractures:T9 compression fractures 03/2022 from coughing, T6 compression fracture from 05/2020 infection coughing Height Loss: 1 IMMUNIZATION HX: Pneumovax years ago Flu shot not yet Tetanus yes Last PPD: negative years ago PAST MEDICAL HISTORY: PMH alopencia totalis, asthma, eczema, heavy menses, obesity, rosacea, seasonal allergies, +PE 07/2020 with 1st +COVID19 infection 05/2020 was on oxygen for 9months, 2020 diverticulosis., T9 compression fractures 03/2022 from coughing, T6 compression fracture from 05/2020 infection coughing, DM type 2, thyroid disease, s/p left axillary lymph node biopsy, 33y/o with hysterectomy for prolapsed uterus, s/p b/l partial knee replacements 2018 & 2017, s/p R anterior tibialistendon surgery , 33y/o with hysterectomy for prolapsed uterus, s/p straightening pronated feetsurgeries , s/p tonsillectomy, s/p cholecystectomy, s/p appy, s/p b/l cataracts surgeries 1 08/2020 PAST SURGICAL HISTORY: s/p left axillary lymph node biopsy, 33y/o with hysterectomy for prolapsed uterus, s/p b/l partial knee replacements 2018 & 2017, s/p R anterior tibialis tendon surgery , 33y/o with hysterectomy for prolapsed uterus, s/p straightening pronated feet surgeries , s/p tonsillectomy, s/p cholecystectomy, s/p appy, s/p b/l cataracts surgeries 05/2021 PAST SURGICAL HISTORY Procedure Laterality Date BX BREAST NEEDLE CORE W/O IMAGING GUIDANCE SPX 09/25/2007 left axillary lymph node HYSTERECTOMY HX both ovaries intact PAST SURGICAL HISTORY OF bilateral partial knee replacement. 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 Smoking no etoh occasionally No gout MEDICATIONS: reviewed medlist May 07, 2022 Calcium daily Vitamin D 1000 International Units daily with food CURRENT ALLERGIES: Allergies As of Date: 10/01/2023 Allergen Noted Reaction KEFLEX [CEPHALEXIN] 10/18/2004 NO LATEX ALLERGY [OTHER] 10/18/2004 PENICILLINS 01/05/2004 Fully Assessed 05/07/2022 TESTS:All Diagnostic tests reviewed for today's visit: Warren nuñez 07/15/23 low potassium 3.4;normal wbc 9.7, hgb 12.6, plts 278, glucose 100, creat 0.5,calcium 9, alkaline phosphatase 55, ast 17, alt 15, crp<1 (normal<1.9mg/dL), esr 19 (NL0-34mm/hr), vitamin D 31.6; 05/07/22 +RF26, +CCP 205, crp 0.9 (1.3), wbc 14.66 (7.11);low vitamin D 27.3;normal rest of cbc, cmp, esr 16, uric acid 3, vitamin b12-630;negative aileen ifa, hepatitis panel, quantiferon tb; Outside 01/24/22 low hgb 9.4, calcium 8.1;high glucose 201;normal wbc 10.6, plts 262, rest of bmp, creat 0.57, potassium 3.9; 09/2005 normal cbc, cmp, c3-147, c4 36, negative crithidia lucillae 08/08/05 +AILEEN 1:160/speckled, +AILEEN 3ia 13.9;normal esr 16, crp 1.3, IGE 42.4, zinc;negative fadi, rf 10, dsdna; PHYSICAL EXAM:reviewed vitals from last visit General Appearance: WD/WN, NAD. Appropriate grooming. Very pleasant. Ambulates fair without assistance or without assistive devices, speaks in full sentences without distress SKIN: No rash, no psoriasis, no purpura, no ulcers, no skin thickening/tightness, no telangiectasias. HEENT: No patchy alopecia, normal temporal artery pulsations, non-tender, scalp non-tender, no conjunctival injection or icterus, no oral ulcers, no thrush, normal nasal mucosa, no sinus tenderness, normal TM's. yes glasses, fair dentition NECK: no visible thyromegaly, no LAD. EXTREMITIES: No clubbing,discoloration,sclerodactyly, periungual erythema, digital ulcers, nail pitting, edema, varicosities. MUSCULOSK: s/p R TKR, s/p Left partial knee replacement No joint deformities, no rheumatoid nodules, calcifications or tophi. No SI tenderness, no michelle's tenderness, no heel/plantar tenderness, lumbar flexion full, negative Arturo's test, tinel's and dennys tests Swoll JTS:no Tend. JTS:both knees, L>R shoulders, improved hands, fair range of motion/decreased abduction Left shoulder duet o pain; no warmth/erythema No clinical synovitis in the DIP's, PIP's, MCP's, wrists, elbows, shoulders, knees, ankles, midfoot, or toes. no knee effusions bilateral. Shoulder exam:see above; no warmth/erythema Hip rom without pain LIMITATION of Motion of Joints: yes Thoracic/Lumbar Spine: No percussion tenderness IMPRESSION/DIAGNOSIS:10/01/23 M06.09 Rheumatoid arthritis of multiple sites without rheumatoid factor (HCC) (primary encounter diagnosis) R11.0 Nausea R76.8 Cyclic citrullinated peptide (CCP) antibody positive R76.8 AILEEN positive Z82.61 Family history of rheumatoid arthritis Z82.69 Family history of gout M15.3 Secondary osteoarthritis of multiple sites M12.812 Rotator cuff arthropathy of left shoulder M25.561, M25.562, G89.29 Bilateral chronic knee pain M79.641, M79.642 Bilateral hand pain M25.531, M25.532 Bilateral wrist pain Z79.899 Long-term use of high-risk medication E55.9 Vitamin D deficiency Z79.1 Encounter for long-term (current) use of NSAIDs M81.0 Postmenopausal osteoporosis of multiple sites Z92.89 Personal history of other medical treatment Ms. Gutierrez is a 62 year old Wfemale with PMH alopencia totalis, asthma, eczema, heavy menses, obesity,rosacea, seasonal allergies, +PE 07/2020 with 1st +COVID19 infection 05/2020 was on oxygen for 9months, 2020 diverticulosis., T9 compression fractures 03/2022 from coughing, T6 compression fracture from 05/2020 infection coughing, DM type 2, thyroid disease, s/p left axillary lymph node biopsy, 33y/o with hysterectomy for prolapsed uterus, s/p b/l partial knee replacements 2018 & 2017, s/p R anterior tibialis tendon surgery , 33y/o with hysterectomy for prolapsed uterus, s/p straightening pronated feet surgeries , s/p tonsillectomy, s/p cholecystectomy, s/p appy, s/p b/l cataracts surgeries 05/2021 presents with eczema back of knees/antecubital area as a child Saw years ago for alopecia and +AILEEN (1:160). alopecia start in 2000 - initially hair thinning then within 2 weeks completely lost all her hair (at the time she had mother , marital problems). Tried topical medications - no response. no hair on head, arms and just now getting hair on eyebrows back. 2019 pain in the both hands/wrists, L shoulder, Saw and Burning pain and swelling of hands/wrists with red blotch on back of hand L shoulder rotator cuff tear due for surgery, no scheduled yet Improved with prednisone x 1year, tapered 2019, recently on prednisone for +COVID19 in 03/2022, then treated with paxlovid 01/23/22 s/p R TKR for bone on bone, dislocation, no history of steroid injection Rinvoq 2019-presents with good response with hands/shoulders,knee pain 100% improvement with med Celebrex twice a day when working, now taking once a day with good response Calcium once a day Vitamin D 1000 International Units daily with food Prolia summer Abnormal Bone mineral density cori years ago Reports pain 1/10 at the worst 10/10 Has findings with secondary osteoarthritis of multiple joints, inflammatory arthritis/ rheumatoid arthritis without RF of multiple joints, postmenopausal osteoporosis of multiple areas, left rotator cuff tear arthropathy, not seen in 2years. Due for labs. Much improved with rinvoq (occasional nausea), celebrex twice a day, vitamin D script now taking vitamin D 2000 International Units daily with food, synthroid, last week recent oral steroids and doxycycline for cold. Had bmd 03/2023. Due for next prolia 10/08/23 with primary care provider. Did fine with last prolia. No dental work planned. Not taking antibiotics. No signs or symptoms of infection. Asthma stable. Recently eye exam, s/p YAG for both eyes recently, will get new glasses. Has orders for labs this month Warren nuñez 07/15/23 low potassium 3.4;normal wbc 9.7, hgb 12.6, plts 278, glucose 100, creat 0.5,calcium 9, alkaline phosphatase 55, ast 17, alt 15, crp<1 (normal<1.9mg/dL), esr 19 (NL0-34mm/hr), vitamin D 31.6; 05/07/22 +RF26, +CCP 205, crp 0.9 (1.3), wbc 14.66 (7.11);low vitamin D 27.3;normal rest of cbc, cmp, esr 16, uric acid 3, vitamin b12-630;negative aileen ifa, hepatitis panel, quantiferon tb; 100% improvement from rinvoq. Goint to anytime fitness walking on treadmill and bike and leg raisesfor exercise. Mild leg edema/ swelling. Chronic current pain in knees, shoulders, better hands/wrists Reports pain 1/10. Has few min minimal AM stiffness. Feels safe at home. Has enough food, supplies and medications. Overall mildly uncomfortable but happy with rheum care. = supportive care, check labs, obtain bmd results, follow up with primary care provider for infectioncare, improved with rinvoq/continue daily when infection free, improved with prednisone/take for flares, improved with celebrex twice a day if helpful/tolerated, tolerating prolia every 6months/next due ~10/08/23 with primary care provider, calcium dietary, increase vitamin D 4000 International Unitsdaily with food, see ortho, start prn heat/ice/otc arthritis creams, start low impact weightbearingexercise as tolerated, avoid aggravating triggers, answered all questions and concerns, patient voiced understanding. RECOMMENDATION/PLAN: Reviewed all available labs/tests with patient Provided printed info lupus, rheumatoid arthritis, osteoarthritis, osteoporosis 10/01/23 check nonfasting labs, patient has printed orders Modified 10/01/23 LESLEY 0, pain 10%;May 07, 2022 HAQ0, pain 10-100%; May apply over the counter arthritis creams and or patches (biofreeze, icy hot, asper cream, tiger balm, capsacin, lidocaine, salon pas, voltaren gel, etc.) or over the counter pain patches to painful joints up to four times a day. Avoid contact with eyes. May take Extra Strength acetaminophen 500mg every 4-6hours for joint pain. Do not exceed 3000mg /day. Decrease stress Improve sleep May apply heat/ice 20minutes on and off to areas of pain Avoid aggravating triggers If needed, may take Calcium 1200mg daily with food in DIVIDED doses If labs normal, take Vitamin D 4000 International Units daily with food Celebrex with food for pain up to twice a day See ortho Rinvoq daily Please hold rinvoq if on antibiotics or if you have any signs/symptoms of infection. Recommend goal: exercising 30minutes 3-5 times a week Recommend weight-bearing aerobic exercises such as walking, dancing, low impact aerobics, elliptical machine, stair climbing, gardening, biking, water exercises flexibility exercises and strength training exercises Recommend avoiding high impact exercises such as jumping, running or jogging or movements where youbend forward and twist the waist, for instance- touching your toes, sit-ups, using row machine terminal carman pain recommendations per primary care provider/pain clinic Increase water prior and 1week after prolia Prolia every 6months, last one ~summer 2021 Nonfasting labs as scheduled Additional time spent with patient on healthy lifestyle, healthy food and anti- inflammatory diet (with emphasis on whole plant based diet), avoiding refined carbs/sugars and processed food, appropriate exercise (stretching, cardio and strengthening), good sleep hygiene, stress mgt, and supplementing vital deficiencies and maintaining healthy wt and BMI. Additional information provided with references and educational information. Bone Health Recommendations: -Bone Density: After age 70 yrs, sooner if new clinical risk factors, or systemic steroid use of 3 months or more. -Vitamin D supplementation recommended, optimal dose is the dose necessary to achieve Vitamin D 25-OH blood level in range of 40-60 ng/mL. -Recommended daily dose of calcium: 1000-1200mg total a day in divided doses. Calcium from dietary sources, if not sufficient, or if with h/o calcium nephrolithiasis would recommend Calcium Citrate supplement, as it is recommended to avoid calcium carbonate products, which as main dietary calcium source. The after visit summary has information on dietary calcium and instructions on reading calcium label and converting the %DV to mg. -Regular weight-bearing and muscle-strengthening exercise -Avoidance of tobacco smoking, excessive alcohol intake and excessive caffeine intake. -Fall and fracture precautions -Continued regular dental follow up visits and good dental/gum care Stressed the importance of following up with PCP and specialists for his/her chronic diseases, health, CV, and cancer screening and continued care. Will follow disease activity/progression and adjusttherapeutic regimen to disease activity and severity. Discussed medication dosage, usage, goals of therapy, and side effects. Available test results were reviewed An additional 20minutes were spent outside of the patient visit to review records. Additional time spent with the patient to discuss their questions. Additional time spent with the patient devoted to discussing treatment strategy, planning, and implementation. Discussed findings, impression and plan with patient. Patient understands above plan; questions asked and answered. Patient agrees to plan as noted above. The above reflects my independent exam and review. I saw and examined the patient myself personally. Parts of the HPI, ROS, exam and impression/plan may have been copied from my personal previous clinical note and remain pertinent. Current changes have been made and documented today. Other parts ordata were deleted if not relevant for today. Plan as outlined. Total time spent on this visit, with more than 50% of time spent via video & audio (virtual) orphone or face to face with patient, in consultation, and in addition to Counseling and Coordinationof Care, explanation of diagnosis, and planning of further management; I spent a total of 30 minutes 7:30-8AM on the date of the service which included preparing to see the patient, video & audio (virtual) or phone or [id number] patient care, completing clinical documentation, obtaining and/or reviewing separately obtained history, performing a medically appropriate examination, counseling and educating the patient/family/caregiver, ordering medications, tests, or procedures, communicating with other HCPs (not separately reported), independently interpretingresults (not separately reported), communicating results to the patient/family/caregiver and care coordination (not separately reported) Follow up every 6months for prolia, follow up every 4-6months, earlier if needed Recommendations to share with referring physician/Primary care physician : Dear Dr.Kim Dalila Guerrero MD : I had the pleasure of seeing your patient, Carolina Gutierrez. I have enclosed a copy of my clinic note with my assessment and recommendations for this patient. Recommendations for your consideration as you deem necessary: -Continuous follow up with Primary care physician for cardiovascular disease prevention, for age appropriate cancer screening and routine health maintenance and wellness, and infection precautions and age appropriate immunization recommended. Thank you for allowing me to participate in the care of your patient. Stevo Neff MD I will relay my findings and recommendations to the physician requesting the consult by letter/electronic shared medical records. cc Aline Guerrero MD [facility] AMBULATORY VISIT INTAKE QUESTIONNAIRE Question 10/01/2023 7:17 AM EDT - Filed by Patient Has the patient had unintentional weight loss or gain? No Do you have concerns about personal safety or safety in the home? No Has the Patient Had 2 Falls in the Last Year or 1 Fall with Injury or Currently Using an AmbulatoryAssistive Device (Walker, Cane, Wheelchair, Crutches, etc.) No Are you having pain associated with your visit today? No F MYCGUILLERMOT ADDITIONAL DEMO Question 10/01/2023 7:17 AM EDT - Filed by Patient Is this visit related to an accident, other than Workers' Compensation? No Is this visit related to Workers' Compensation? No Do you need an special effects person? No [facility] MYCHART ZOOM MESSAGE Question 10/01/2023 7:17 AM EDT - Filed by Patient Install Zoom I have Zoom installed [facility] PROMIS CAT V2.0-PHYSICAL FUNCTION-28 DAYS Question 10/01/2023 7:18 AM EDT - Filed by Patient Does your health now limit you in doing two hours of physical labor? Not at all Does your health now limit you in doing strenuous activities such as backpacking, skiing, playing tennis, bicycling or jogging? Not at all Are you able to run five miles (8 km)? With a little difficulty Are you able to run or jog for two miles (3 km)? Unable to do Does your health now limit you in hiking a couple of miles (3 km) on uneven surfaces, including hills? Very little PROMIS Physical Function T-Score (range: 10 - 90) 55 (within normal limits) PROMIS Physical Function Percentile (range: 0 - 100) 69 [facility] PROMIS CAT V1.0 - FATIGUE-28 DAYS Question 10/01/2023 7:18 AM EDT - Filed by Patient How often did you have to push yourself to get things done because of your fatigue? Sometimes I have trouble starting things because I am tired A little bit How much were you bothered by your fatigue on average? A little bit I feel fatigued Somewhat PROMIS Fatigue T-Score (range: 10 - 90) 53 (within normal limits) PROMIS Fatigue Percentile (range: 0 - 100) 38 [facility] PROMIS CAT V1.1-PAIN INTERFERENCE-28 DAYS Question 10/01/2023 7:19 AM EDT - Filed by Patient How much did pain interfere with your day to day activities? Not at all How much did pain interfere with your enjoyment of recreational activities? Not at all How much did pain interfere with your enjoyment of life? Not at all How often was pain distressing to you? Rarely How much did pain interfere with work around the home? Not at all PROMIS Pain Interference T-Score (range: 10 - 90) (range: 10 - 90) 47 (within normal limits) PROMIS Pain Interference Percentile (range: 0 - 100) 62 MYC RAPID 3 Question 10/01/2023 7:19 AM EDT - Filed by Patient Dress yourself, including typing shoelaces and doing buttons? Without ANY difficulty Get in and out of bed? Without ANY difficulty Lift a full cup or glass to your mouth? Without ANY difficulty Walk outdoors on flat ground? Without ANY difficulty Wash and dry your entire body? Without ANY difficulty Bend down to apple picking supervisor clothing from the floor? Without ANY difficulty Turn regular faucets on and off? Without ANY difficulty Get in and out of a car, bus, train, or airplane? Without ANY difficulty Walk tow miles or three kilometers, if you wish? Without ANY difficulty Participate in recreational activities and sports as you would like, if you wish? Without ANY difficulty Get a good night's sleep? Without ANY difficulty Deal with feelings of anxiety or being nervous? Without ANY difficulty Deal with feelings of depression or feeling blue? Without ANY difficulty RAPID 3 Pain Level 0 - No Pain RAPID 3 HOW DOING OVERALL 0 - Very Well RAPID 3 Functional Status Score (range: 0 - 10) 0 PAIN LEVEL (range: 0 - 10) 0 Global Estimate (PTGE) (range: 0 - 10) 0 RAPID 3 CUMULATIVE SCORE (range: 0 - 30) 0 RAPID 3 Weighed Score (range: 0 - 10) 0 (Near Remission (NR)) Weighed Score Percentage Change Compared to Last (range: -500 - 500) Incomplete MYC RHEUM PHQ-9 Question 10/01/2023 7:21 AM EDT - Filed by Patient Over the past two weeks, how often have you been bothered by any of the following problems? Little interest or pleasure in doing things Not at all Feeling down, depressed, or hopeless Not at all PHQ-2 Score (range: 0 - 6) 0 PHQ-2<3, but PHQ-9 > 14 last 12 Mo (range: 0 - 1) 0 MYC PROMIS 10 ADULT SHORT FORM V1.0 GLOBAL HEALTH Question 10/01/2023 7:21 AM EDT - Filed by Patient In the past 7 days In general, would you say your health is: Very good In general, would you say your quality of life is: Excellent In general, how would you rate your physical health? Excellent In general, how would you rate your mental health, including your mood and your ability to think? Excellent In general, how would you rate your satisfaction with your social activities and relationships? Excellent In general, please rate how well you carry out your usual social activities and roles. (This includes activities at home, at work and in your community, and responsibilities as a parent, child, spouse, employee, friend, etc.) Excellent To what extent are you able to carry out your everyday physical activities such as walking, climbing stairs, carrying groceries, or moving a chair? Completely In the past 7 days In the past 7 days, how often have you been bothered by emotional problems such as feeling anxious,depressed or irritable? Never In the past 7 days, how would you rate your fatigue on average? None In the past 7 days, how would you rate your pain on average? 0 - No Pain PROMIS Adult Short Form-Global Health Score (Physical) (range: 16 - 68) 67.7 (Excellent) PROMIS Adult Short Form-Global Health Score (Mental) (range: 21 - 68) 67.6 (Excellent) Myc Promis Gh Physical Score Compared To Last (range: -2 - 3) 0 (NO SCORE = 0) Myc Promis Gh Mental Score Compared To Last (range: -2 - 3) 0 (NO SCORE = 0) MYC PROVIDER UNDERSTANDING CURRENT HEALTH RHEUMATOLOGY Question 10/01/2023 7:22 AM EDT - Filed by Patient These questions will help my provider understand my health Strongly Agree Answers submitted by the patient for this visit: Review of Systems Rheumatology (Submitted on 10/01/2023) Fever : No Recent unintentional weight change: No Eye pain: No Eye redness: No Vision Disturbance: No Eye Dryness: No Nosebleeds: No Sores in your mouth: No Trouble Swallowing: No Dry Mouth: No Chest pain: No Leg Swelling: Yes A cough: Yes Blood when you cough: No Shortness of breath: Yes Heartburn: No Abdominal pain: No Diarrhea: No Black tarry stools: No Blood in urine: No Pain or burning with urination: No Joint pain or stiffness: No Muscle weakness: No Muscle aches: No Joint swelling: No Morning Stiffness in Joints: No A rash: No Skin Color Changes: No Hair Loss: No Nail Changes: No Headaches: No Numbness: No Memory Loss: No Swollen Glands: No documented in this encounterUniversity Hospitals Cleveland Medical Center02-06-2024 History of Present illness Narrative* Sintia Grande DO - 08/06/2023 2:15 PM EST Images from the original note were not included. Subjective Patient ID: Carolina Gutierrez is a 62 y.o. female. Chief Complaint [...] mild improvement. Comments Pt referred by Dr. Stewart for YAG eval both eyes (OU). Right eye (OD) is worse then left eye (OS). Pt has noticed foggy vision at night over last few weeks. Last edited by Sintia Grande DO on 08/06/2023 2:38 PM. No current [...] 2 puffs in the morning and 2 puffsbefore bedtime. calcium carbonate 1500 (600 Ca) MG [...] MOUTH THREE TIMES A DAY NEEDED FOR BACKPAIN ergocalciferol (Vitamin D2) 1.25 MG (80739 UT) capsule TAKE 1 CAP BY MOUTH [...] wheezing or SOB, 1 EA, Refill(s) 11, [facility]/pharmacy #[id number], 144.8, cm, 09/05/22 15:24:00 EST, [...] Pupils Pupils Right PERRL Left PERRL Visual Warner Left Right Full Full Extraocular Movement Right Left Full Full Neuro/Psych Oriented x3: Yes Dilation Both eyes: 1.0% Mydriacyl @ 2:27 PM Additional Tests Keratometry K1 Clinton K2 Clinton Right 44.75 1 45 91 Left 45.5 [...] Normal Normal Refraction Manifest Refraction Sphere Cylinder Clinton Right +0.00 -0.50 137 Left -0.25 -0.25 [...] laser capsulotomy, they are to notify their casting chipper promptly if they have a significant change in symptoms, such as flashes of light (photopsia), an increase in floaters, loss of visual field or decrease in visual acuity. documented in this encounterJohn J. Pershing VA Medical [id number] Note [id number]11-21-[address] DUNBAR'S POST OPERATIVE SHOULDER INSTRUCTIONS [...] or concerns, please call the office at [phone] 7. Follow up as scheduledMemorial Health [id number] [facility] Clinical Discharge Summary PERSON INFORMATION Name CAROLINA GUTIERREZ Age 62 Years 1960 Sex FEMALE Language Samoan PCP Silvestre Benavides MD Marital Status Phone Med Service Observation Acct# Arrival 05/20/2023 06:11:47 Visit Reason SURGERY - LEFT REVERSE TOTAL SHOULDER Acuity LOS 000 29:07 Address: [address] [place] [address] [address] [facility] [id number] Comment: PROVIDER INFORMATION VITALS INFORMATION Vital Sign [...] mcg inhalation powder) 1 puff(s) Inhalation 2 timesa day. levothyroxine (levothyroxine 137 mcg (0.137 mg) [...] Follow up: With: Address: When: Rosa Dunbar [address] [place] [address], [address] [place] [address] Business (1) 05/28/2023 10:30 AM DIAGNOSIS Arthritis of left glenohumeral joint Comment: PHYS [facility]11-15-2023 Telephone encounter Note* Telephone Encounter - MEÑO Golden - 05/15/2023 10:22 AM EST Spoke with patient and answered questions she is taking OTC FE, and we received clearance [facility] Work Phone: [phone]) 853-328111-15-2023 Miscellaneous Notes* Telephone Encounter - MEÑO Golden - 05/15/2023 10:22 AM EST Spoke with patient and answered questions she is taking OTC FE, and we received clearance * Telephone Encounter - Jeny Chu - 05/15/2023 8:15 AM EST Pt called and left vm for you, stated she was suppose to get iron supplement pill, it was never called in and she never got it. She also stated she has not received PCP clearance yet. If you could call her at [phone] * Telephone Encounter - MEÑO Golden - 04/03/2023 12:44 PM EDT Spoke w patient and scheduled appt * Telephone Encounter - Jeny Chu - 04/02/2023 8:38 AM EDT Carolina called and left vm said she was wondering if you are scheduling for May surgeries? You were going to let her know if 05/20/23 is good for her shoulder sx. Please call her at [phone] documented in this encounterJohn J. Pershing VA Medical [id number] Telephone encounter Note* Telephone Encounter - Jeny Chu - 05/15/2023 8:15 AM EST Pt called and left vm for you, stated she was suppose to get iron supplement pill, it was never called in and she never got it. She also stated she has not received PCP clearance yet. If you could call her at [phone] [facility]. Pers[facility] Medical [id number] Evaluation + Plan note Future Scheduled Tests Laboratory* CBC w/ Auto Diff 05/10/23 * CBC w/ Auto Diff 11/21/22 * Comprehensive Metabolic Panel 11/21/22 * Ferritin 11/21/22 * Iron Level 11/21/22 * Iron Percent Saturation 11/21/22 [facility] 11-10-2023 Evaluation + Plan note Future Scheduled Tests Laboratory* CBC w/ Auto Diff 05/10/23 [facility] 10-24-2023 Miscellaneous Notes* Telephone Encounter - Jayde Chirinos - 04/23/2023 9:11 AM EDT Called patient LVM and sent letter in regards to scheduling below. Jayde Chirinos April 23, 2023 9:12 AM * Telephone Encounter - Stevo Neff MD - 04/22/2023 8:14 PM EDT Not seen and no labs available since 05/2022. May schedule nonfasting labs (active since 08/2022) for medication refill. Otherwise, please defer medication refills to current provider Thank you. * Telephone Encounter - Monika Zavala MA - 04/22/2023 8:21 AM EDT Pharmacy electronically requests the following refill(s) Requested Prescriptions Pending Prescriptions Disp Refills celecoxib (CELEBREX) 200 mg capsule [Pharmacy Med Name: CELECOXIB 200 MG CAPSULE] 180 capsule 2 Sig: take 1 capsule by mouth twice a day Monika Zavala MA Most recent Rheumatology visit: 05/07/2022 (with Stevo Neff) Recent Office Visits - This Specialty 05/07/2022 Rheumatoid arthritis of multiple sites without rheumatoid factor (HCC) Rheumatology Stevo Neff MD 10/10/2005 IMMUNOLOGICAL FIND OTHR OR UNSPEC Rheumatology Laura Harper MD Upcoming Rheumatology Appointments - Next 365 Days Visit Type Date Time Department VIDEO SPEC EST 09/30/2023 7:00 AM [facility] CBC: None on file in the [...] diagnoses: Vitamin D deficiency documented in this encounterUniversity Hospitals Cleveland Medical Center10-04-2023 Telephone encounter Note * Telephone Encounter - MEÑO Golden - 04/03/2023 12:44 PM EDT Spoke w patient and scheduled appt [facility] Medical [id number] Telephone encounter Note* Telephone Encounter - Jeny Chu - 04/02/2023 8:38 AM EDT Carolina called and left vm said she was wondering if you are scheduling for May surgeries? You were going to let her know if 05/20/23 is good for her shoulder sx. Please call her at [phone] [facility]. [facility] Medical [id number] NoteHPI Staff This visit was conducted via two-way, real-time interactive video communications by Berry Canales from my office using [employer]. The patient was located at their home, located at [address] [place] [phone], with _ in attendance. A signed authorization for treatment has been obtained via our standard authorization packet or by verbal consent by the patient or their legal communications representative. The patient's identity and location in [place] has been verified by our office staff. [...] morning and night. pt is on day 3of methylprednisolone patient Spo2 running 93%-95% History of [...] day(s), # 21 cap(s), Refills(s) 0, Pharmacy: [facility]/pharmacy #[id number], 143.2, cm, 12/05/22 15:37:00 EDT, Height/Length Dosing, 85.3, kg, 12/05/22 15:37:00 EDT, Weight Dosing nirmatrelvir-ritonavir, See Instructions, Oral, BID, 30 tab(s), Refill(s) 0, 3 Tablets twice daily for 5 days, [facility]/pharmacy #[id number], 143.2, cm, 12/05/22 15:37:00 EDT, Height/Length Dosing, 85.3, kg, 12/05/22 15:37:00 EDT, Weight Dosing TELEHEALTH Office Visit Level 3 Est 05778 2. Cough (R05.9: Cough, unspecified) pt c/o severe cough. will order chest xray. pt encouraged to use nebulizer every 4 hours. pt is on day 3 of medrol dose pack. Ordered: benzonatate, 200 mg = 1 cap(s), Oral, TID, X 7 day(s), # 21 cap(s), Refills(s) 0, Pharmacy: [facility]/pharmacy #[id number], 143.2, cm, 12/05/22 15:37:00 EDT, Height/Length Dosing, 85.3, kg, 12/05/22 15:37:00 EDT, Weight Dosing nirmatrelvir-ritonavir, See Instructions, Oral, BID, 30 tab(s), Refill(s) 0, 3 Tablets twice daily for 5 days, [facility]/pharmacy #[id number], 143.2, cm, 12/05/22 15:37:00 EDT, Height/Length Dosing, 85.3, kg, 12/05/22 15:37:00 EDT, Weight Dosing TELEHEALTH Office Visit Level 3 Est 14298 3. Nasal congestion (R09.81: Nasal congestion) mucinex suggested Ordered: benzonatate, 200 mg = 1 cap(s), Oral, TID, X 7 day(s), # 21 cap(s), Refills(s) 0, Pharmacy: [facility]/pharmacy #[id number], 143.2, cm, 12/05/22 15:37:00 EDT, Height/Length Dosing, 85.3, kg, 12/05/22 15:37:00 EDT, Weight Dosing nirmatrelvir-ritonavir, See Instructions, Oral, BID, 30 tab(s), Refill(s) 0, 3 Tablets twice daily for 5 days, [facility]/pharmacy #[id number], 143.2, cm, 12/05/22 15:37:00 EDT, Height/Length Dosing, 85.3, kg, 12/05/22 15:37:00 EDT, Weight Dosing TELEHEALTH Office Visit Level 3 Est 24420 4. Shortness of breath (R06.02: Shortness of breath) pt feeling sob with wheezing. chest xray ordered, levofloxacin sent to pharmacy Ordered: benzonatate, 200 mg = 1 cap(s), Oral, TID, X 7 day(s), # 21 cap(s), Refills(s) 0, Pharmacy: [facility]/pharmacy #[id number], 143.2, cm, 12/05/22 15:37:00 EDT, Height/Length Dosing, 85.3, kg, 12/05/22 15:37:00 EDT, Weight Dosing nirmatrelvir-ritonavir, See Instructions, Oral, BID, 30 tab(s), Refill(s) 0, 3 Tablets twice daily for 5 days, [facility]/pharmacy #[id number], 143.2, cm, 12/05/22 15:37:00 EDT, Height/Length Dosing, 85.3, kg, 12/05/22 15:37:00 EDT, Weight Dosing TELEHEALTH Office Visit Level 3 Est 37089 5. Wheezing (R06.2: Wheezing) see above Ordered: benzonatate, 200 mg = 1 cap(s), Oral, TID, X 7 day(s) (more content not included)...[facility] HospitalComment on above:Result Comment: Electronically Signed By: Berry Canales.br\Date and Time Signed: 03/20/23 12:57 [id number] Miscellaneous Notes* Telephone Encounter - Mary Layne LPN - 03/18/2023 11:13 AM EDT Rosita menezes approval of Rinilyaq. Approved until 03/17/2024. * Telephone Encounter - Mary Layne LPN - 03/15/2023 11:10 AM EDT PA form received. Completed and faxed to [facility] along with chart notes. * Telephone Encounter - Radha Sandersinda - 03/14/2023 11:41 AM EDT [facility] calling regarding prior auth for Rinvoq ER. They will be faxing over the renewal form today. Can call prior auth at [phone]. Pharm is [phone]. documented in this encounterUniversity Hospitals Cleveland Medical Center08-23-2023 History of Present illness Narrative* Jamia Rader - 02/20/2023 2:40 PM EDT Ortho Nurse - Established Patient Intake Room#: 5 4m R TKA Pt stated she is doing good and denies any pain at this time.0/10 on the pain scale. Pt stated her only complaint is going up and down steps it is a little week. Date: 02/20/2023 2:51 PM Patient: Carolina Gutierrez MR#: [id number] : 1960 Age: 62 y.o. Referring Physician: Self, Self Insurance: Payor: ANTHEM / Plan: ANTHEM HMO PPO POS / Product Type: *No Product type* / Chief Complaint Patient presents with Right Knee - Follow-up 1 yr.Rt.TKR follow-up. Patient states she has no pain. However,she does have weakness when going upsteps. Visit Vitals Temp 98.6 F (37 C) [...] TOTAL Right 01/23/2022 Laterality: Right; Surgeon: Puja Pendleton MD; Location: [facility]EE [...] eliquis [apixaban], keflex [cephalexin], and penicillins. * Medardo Vuong APRN-DOG LICENSER - 02/20/2023 2:40 PM EDT HPI: Patient is here today for evaluation [...] throughout the arc of motion. The contralateral extremityhas full motion, normal stability, no tenderness. Both [...] have reviewed the findings of the clinical senior support engineer and agree with their assessment. Ortho Nurse - Established Patient Intake Room#: 5 4m R TKA Pt stated she is doing good and denies any pain at this time.0/10 on the pain scale. Pt stated her only complaint is going up and down steps it is a little week. Date: 02/20/2023 2:51 PM Patient: Carolina Gutierrez MR#: [id number] : 1960 Age: 62 y.o. Referring Physician: Self, Self Insurance: Payor: ROSITA / Plan[facility] / Product Type: *No Product type* / Chief Complaint Patient presents with Right Knee - Follow-up 1 yr.Rt.TKR follow-up. Patient states she has no pain. However,she does have weakness when going upsteps. Visit Vitals Temp 98.6 F (37 C) [...] TOTAL Right 01/23/2022 Laterality: Right; Surgeon: Puja Pendleton MD; Location: [facility]NEE [...] keflex [cephalexin], and penicillins. documented in this encounterMer[facility]06-07-[facility]23 Hospital Discharge instructions Patient Education 12/05/2022 15:55:32 Food Choices for Gastroesophageal Reflux Disease, Adult Food Choices for Gastroesophageal Reflux Disease, Adult When you have gastroesophageal reflux disease (GERD), the foods you eat and your eating habits are very important. Choosing the right foods can help ease the discomfort of GERD. Consider working witha dietitian to help you make healthy food [...] you need help quitting, ask your health careprovider. Sleep with the head of your bed raised. Use a wedge under the mattress or blocks under the bed frame to raise the head of the bed. Chew sugar-free gum after mealtimes. What foods should I eat? Eat a healthy, well-balanced diet of fruits, vegetables, whole grains, low-fat dairy products, leanmeats, fish, and poultry. Each person is different. Foods that may trigger symptoms in one person may not trigger any symptoms in another person. Work with your health care provider to identify foodsthat are safe for you. The items listed above may not be a complete list of recommended foods and beverages. Contact a dietitian for more information. What foods should I avoid? Limiting some of these foods may help manage the symptoms of GERD. Everyone is different. Consult adietitian or your health care provider to help you identify the exact foods to avoid, if any. Fruits Any fruits prepared with added fat. Any fruits that cause symptoms. For some people this may include citrus fruits, such as oranges, grapefruit, pineapple, and fawn. Vegetables Deep-fried vegetables. [place] fries. Any vegetables prepared with added fat. [...] symptoms, talk with your health care provider abouttaking medicines. Where to find more information International [...] provider. Document Revised: 12/26/2020 Document Reviewed: 12/26/2020 [employer] Patient Education 2022 [email or web address]. Follow Up Care 11/27/2022 15:55:14 With:Teodora Ott CNP Address: When:3 months [facility] 05-23-2023 NotePROCEDURE: US SINGLE QUAD RT UPPER DATE: 11/20/2022 [...] Electronically authenticated by: GEOVANNY DUNBAR Date: 2022-11-20 09:26[facility]04-21-2023 NotePROCEDURE: XR FOOT LT MIN 3 VIEWS HISTORY: Pain in left [...] Electronically authenticated by: NHUNG DONG Date: 2022-10-19 10:44[facility]04-07-2023 Evaluation note* Encounter Date Diagnosis Assessment Notes Treatment Notes Treatment Clinical Notes Sep, Dysuria (ICD-10 - R30.0) Sep, Urinary tract infection without hematuria, site unspecified (ICD-10 - N39.0) Urinary tract infection (UTI) home care material was printed Drink plenty fluids, get plenty of rest. Take the Cipro as prescribed until gone. Continue home medications as prescribed. Continue to take the Azo. Follow-up with your family physician if no improvement in 2 to 3 days. [employer] Other 04-03-2023 Evaluation + Plan note Future Scheduled Tests Laboratory* HgbA1c 10/01/22 * TSH With T4fr Reflex 10/01/22 * CBC w/ Auto Diff 05/10/23 * CBC w/ Auto Diff 10/01/22 * CBC w/ Auto Diff 11/21/22 * Comprehensive Metabolic Panel 10/01/22 * Comprehensive Metabolic Panel 11/21/22 * Ferritin 11/21/22 * Iron Level 11/21/22 * Iron Percent Saturation 11/21/22 * Lipid Panel 10/01/22 [facility]03-10-2023 Evaluation + Plan noteExtracted from: Title:ED Note Author:Shalom Toledo DO Date :09/07/22 Asthma exacerbation (J45.901 : Unspecified asthma with (acute) exacerbation) Sinusitis (J32.9: Chronic sinusitis, unspecified) Orders: albuterol-ipratropium, 9 mL, Soln-Inh, Inhalation, Once, Stop date 09/07/22 0:09:00 EST, STAT, Start date 09/07/22 0:09:00 EST brompheniramine/dextromethorphan/PSE, 5 mL, Oral, QID for cold symptoms, 200 mL, Refill(s) 0, [facility]/pharmacy #[id number], 150, cm, 09/06/22 23:56:00 EST, Height/Length Dosing, 87.3, kg, 09/06/22 23:56:00 EST, Weight Dosing brompheniramine/dextromethorphan/PSE, 5 mL, Syrup, Oral, Once, Stop date 09/07/22 1:38:00 EST, STAT, Start date 09/07/22 1:38:00 EST doxycycline, 100 mg = 1 tab(s), Oral, q12hr, X 7 day(s), # 14 tab(s), Refills(s) 0, Pharmacy: [facility]/pharmacy #[id number], 150, cm, 09/06/22 23:56:00 EST, Height/Length Dosing, 87.3, kg, 09/06/22 23:56:00 EST, Weight Dosing methylPREDNISolone, 125 mg = 2 mL, Injection, IV Push, Once, Stop date 09/07/22 0:08:00 EST, STAT, Start date 09/07/22 0:08:00 EST, 09/07/22 0:08:00 EST predniSONE, 50 mg = 1 tab(s), Oral, Daily, X 5 day(s), # 5 tab(s), Refills(s) 0, Pharmacy: [facility]/pharmacy #[id number], 150, cm, 09/06/22 23:56:00 EST, [...] Date:09/11/2022 03:00:00 PM Scheduled Provider:ALINE GUERRERO MD Location:[facility] Appointment Type: ER/Hospital Follow Up Appointment Date:09/25/2022 03:20:00 PM Scheduled Provider:Teodora Ott CNP Location:[facility] Appointment Type:[facility] Follow Up Appointment Date:10/01/2022 07:00:00 AM Scheduled Provider:Silvestre Benavides MD Location:[facility] Appointment Type: Open Appointment Date:11/21/2022 03:00:00 PM Scheduled Provider:Haim Do DO Location:.ONCOLOGY Appointment Type:ONC Office Visit 15 (FT) Future Scheduled Tests Laboratory* CBC w/ Auto Diff 04/05/22 * CBC w/ Auto Diff 11/21/22 * Comprehensive Metabolic Panel 11/21/22 * Ferritin 11/21/22 * Iron Level 11/21/22 * Iron Percent Saturation 11/21/22 Radiology* NM Gastric Emptying Study 10/13/21 [facility]03-10-2023 Hospital Discharge instructions Patient Education 09/07/2022 02:01:10 Sinusitis, Adult, Rkag-sn-Ukgw Sinusitis, Adult Sinusitis is soreness and swelling [...] at home: Medicines Take, use, or apply wnqy-vwe-agfhwha and prescription medicines only as told by [...] is no soap and water, use hand impregnation operator. Do not smoke. Avoid being around people [...] 12/03/2008 Document Revised: 11/17/2018 Document Reviewed: 11/17/2018 [employer] Patient Education 2020 [email or web address]. 09/07/2022 02:01:10 Asthma, Adult, Kmuh-vk-Ovaf Asthma, Adult Asthma is a long-term (chronic) [...] pollute the air. These may include household personal health coach, wood smoke, smog, or chemical odors. Cold [...] you are not home. Use a vacuum glass cleaner with a HEPA filter if possible. [...] and water are not available, use hand impregnation operator. Do not allow anyone to smoke in your home. General instructions Take vaft-kqn-bkezkvk and prescription medicines only as told by [...] 12/03/2008 Document Revised: 08/20/2019 Document Reviewed: 07/22/2017 [employer] Patient Education 2020 [email or web address]. Follow Up Care 09/06/2022 23:48:56 With:ALINE GUERRERO Address: [address] [place] [address] Business (1) When:09/10/2022 Comments:Take the antibiotics [...] ED for any new or worsening symptoms. [facility]03-03-2023 Evaluation note* Encounter Date Diagnosis Assessment Notes [...] for fever/discomfort, cool mist humidifier. May use [place] as needed for cough, do not take any other OTCs while using [place]. Patient to follow up with PCP in 2-3 days. Immediate eval if SOB, difficulty breathing, chest pain, dizziness, or other concerning symptoms. Patient verbalizes understanding and is agreeable to treatment plan [employer] Other 01-20-2023 Miscellaneous Notes* Telephone Encounter - Saadia Hall [...] Days Visit Type Date Time Department [facility] MEDICAL 12/03/2022 6:40 AM [facility] CBC: CBC Latest Ref Rng & [...] No Latex Allergy [Other], and Penicillins (home) [phone] (work) [phone] (cell) Reason for call: Patient calling, insurance [...] complete patient specific tasks. documented in this encounterUniversity [facility]01-16-2023 Hospital Discharge instructions Follow Up Care 07/16/2022 13:51:14 With:Maximino HDZ, [employer] Address: [address] [place] [address]- When: only if needed [facility]12-19-2022 Miscellaneous Notes* Telephone Encounter - Stevo Neff [...] she have her [facility] or another Facility? Please advise. * Telephone [...] 1 tablet per day. documented in this encounterUniversity Hospitals [facility]12-07-2022 History of Present illness Narrative* Tram Rainer - 06/06/2022 4:10 PM EST Ortho Nurse - Established Patient Intake Room#: 3 Date: 06/06/2022 4:18 PM Patient: Carolina Gutierrez MR#: [id number] : 1960 Age: 61 y.o. 4m R TKA Pt stated she is doing good and denies any pain at this time.0/10 on the pain scale. Pt stated her only complaint is going up and down steps it is a little week. Referring Physician: Self, Self Insurance: Payor: ROSITA / Plan: ROSITA O PPO POS / Product Type: *No Product [...] TOTAL Right 01/23/2022 Laterality: Right; Surgeon: Puja Pendleton MD; Location: [facility] OR ARTHROPLASTY KNEE TOTAL Bilateral partial CHOLECYSTECTOMY [...] [apixaban], keflex [cephalexin], and penicillins. * Puja Pendleton MD - 06/06/2022 4:10 PM EST HPI: [...] have reviewed the findings of the clinical senior support engineer and agree with their assessment. Ortho Nurse - Established Patient Intake Room#: 3 Date: 06/06/2022 4:18 PM Patient: Carolina Gutierrez MR#: [id number] : 1960 Age: 61 y.o. 4m R TKA Pt stated she is doing good and denies any pain at this time.0/10 on the pain scale. Pt stated her only complaint is going up and down steps it is a little week. Referring Physician: Self, Self Insurance: Payor: ROSITA / Plan: ROSIAT O PPO POS / Product Type: *No Product [...] TOTAL Right 01/23/2022 Laterality: Right; Surgeon: Puja Pendleton MD; Location: [facility] OR ARTHROPLASTY KNEE [...] keflex [cephalexin], and penicillins. documented in this [facility]11-26-2022 Evaluation note* Encounter Date Diagnosis Assessment Notes Treatment Notes Treatment Clinical Notes May, Viral upper respiratory infection (ICD-10 - J06.9) Viral upper respiratory infection: adult home care material was printed Drink plenty fluids, get plenty of rest. Continue home medications as prescribed. Take Sudafed for congestion. Follow-up with your family physician if no improvement in 2 to 3 days. [employer] Other 11-22-2022 Evaluation + Plan noteExtracted from: [...] GUERRERO 05/30/2022 09:00 AM EST [address] [place] [address] Business (1) Additional Instructions: If patient prefers [...] EST fluticasone nasal, 0.1 mg, 2 spray(s), [place], Nasal, Daily, Routine, Start date 05/22/22 9:00:00 [...] 05/29/22 * NM Gastric Emptying Study 10/13/21 [facility]11-22-2022 Hospital Discharge instructions Patient Education 05/22/2022 09:23:13 [...] ?Squatting. ?Moving his or her legs. Give rvrs-xze-lsosfkj and prescription medicines only as told by [...] 03/26/2009 Document Revised: 05/30/2018 Document Reviewed: 07/23/2017 [employer] Patient Education 2020 [employer] 05/22/2022 09:23:13 Syncope Syncope Syncope refers [...] right away. Call your local emergency services (591 in the [place] Donot drive yourself to [...] your urine pale yellow. General instructions Take absi-wcm-vdcyqpb and prescription medicines only as told by [...] right away. Call your local emergency services (581 in the [place] Do not drive yourself [...] 06/17/2006 Document Revised: 05/30/2018 Document Reviewed: 05/26/2018 [employer] Patient Education 2020 [employer] Follow Up Care 05/22/2022 00:05:48 With:ALINE GUERRERO Address: [address] [facility] [place] [address] Business (1) When:05/30/2022 09:00:00 Comments:If patient prefers different time she can calll to get a later time Call physician if symptoms worsen [facility]11-21-2022 Hospital Discharge instructions Patient Education 05/21/2022 08:28:38 [...] what activities are safe for you. Take xuaw-kms-iuilrhl and prescription medicines only as told by [...] 12/16/2012 Document Revised: 12/09/2018 Document Reviewed: 11/17/2018 [employer] Patient Education 2020 [email or web address]. [facility]11-11-2022 Hospital Discharge instructions Patient Education 05/11/2022 14:41:44 [...] Follow these instructions at home: Medicines Take nkhi-kjo-qriqgrb and prescription medicines only as told by your health care provider. If you were prescribed an antibiotic medicine, take it as told by your health care provider. Do notstop taking the antibiotic even if you start to feel better. Eating and drinking Follow any diet changes as told by your health care provider. Work with a diet and financial retirement plan specialist (dietitian) to create an eating plan that [...] 06/14/2001 Document Revised: 11/11/2019 Document Reviewed: 11/11/2019 [employer] Patient Education 2019 [email or web address]. Follow Up Care 05/04/2022 13:34:33 With:Teodora Ott CNP Address: When:1 to 2 weeks [facility] 11-11-2022 Miscellaneous Notes* Telephone [...] to My Chart if tests completed at [facility]: High inflammatory tests associated with known [...] accordingly. Stevo Neff MD documented in this encounterUniversity [facility]als [facility]11-09-2022 Miscellaneous Notes* Telephone Encounter - Stevo Neff [...] Neff MD * Telephone Encounter - Marian Kavehtaylor Beckman - 05/08/2022 8:[address] Neff pt documented in this encounterUniversity Hospitals [facility] Center11-04-2022 NoteOPERATIVE NOTE OPERATION DATE: 05/03/2022 PREOPERATIVE DIAGNOSIS: [...] taken to the PACU in good condition.[id number] Evaluation note* Encounter Date Diagnosis Assessment Notes [...] no improvement in 2 to 3 days. [employer] Other 10-16-2022 Evaluation note* Encounter Date Diagnosis Assessment Notes Treatment Notes Treatment Clinical Notes Mar, Persistent cough (ICD-10 - R05.3) Advised patient that chest XR findings are negative. With no improvement with medications, will send in rx of Doxycycline and [place] to use as directed. Advised patient she needs follow up with PCP in 2-3 days. Immediate evalution in ER for signs/symptoms as discussed. Patient verbalizes understanding and is agreeable with treatment plan [employer] Other 10-06-2022 Evaluation note* Encounter Date Diagnosis [...] weeks for the cough to go away [employer] Other 08-18-2022 History of Present illness Narrative* Tram Rainer - 02/15/2022 2:00 PM EDT Ortho Nurse - Established Patient Intake Room#: 4 Date: 02/15/2022 2:20 PM Patient: Carolina Gutierrez MR#: [id number] : 1960 Age: 61 y.o. 3wk S/P R TKA Pt stated she is doing good she still has a limp and her pain is a 6/10 on the pain scale. Pt was not wearting her edgar hose and using a cane at the time of visit. Referring Physician: Medardo Vuong APRN-CNP Insurance: Payor: JESSY / [facility] / Product Type: *No [...] TOTAL Right 01/23/2022 Laterality: Right; Surgeon: Puja Pendleton MD; Location: [facility] OR ARTHROPLASTY KNEE [...] eliquis [apixaban], keflex [cephalexin], and penicillins. * Medardo Vuong APRN-MAKEDA - 02/15/2022 2:00 PM EDT HPI: Carolina Gutierrez is 3 weeks s/p right TKA revision. [...] Follow up [address] Pendleton for clinical and radiological evaluation unless an [...] understanding. All pertinent portions of the clinical senior support engineer documentation was reviewed and agree. JONATHAN Schwartz I have reviewed the findings of the clinical senior support engineer and agree with their assessment. JONATHAN Schwartz Ortho Nurse - Established Patient Intake Room#: 4 Date: 02/15/2022 2:20 PM Patient: Carolina Gutierrez MR#: [id number] : 1960 Age: 61 y.o. 3wk S/P R TKA Pt stated she is doing good she still has a limp and her pain is a 6/10 on the pain scale. Pt was not wearting her edgar hose and using a cane at the time of visit. Referring Physician: Medardo Vuong APRN-CNP Insurance: Payor: [employer] / [facility]: [facility] / Product Type: [...] TOTAL Right 01/23/2022 Laterality: Right; Surgeon: Puja Pendleton MD; Location: [facility] OR ARTHROPLASTY KNEE [...] keflex [cephalexin], and penicillins. documented in this encounterMercy Health St. [facility]07-27-2022 Note* Nursing Notes - Greta Claudio RN - 01/24/2022 4:09 PM EDT Patient states pain has improved slightly. Still rates a 7-8/10. OnQ ball decreased to 4. Patient states she is comfortable discharging. [facility]07-[facility] Miscellaneous Notes* Nursing Notes - Greta [...] been happy with her care here at [facility]. * Op Note - Puja Pendleton MD - 01/24/2022 7:52 AM EDT DATE OF PROCEDURE: 01/23/2022 ATTENDING PHYSICIAN: Puja Pendleton M.D. TRACK HELPER: Medardo Vuong CNP. 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 POSTOPERATIVE DIAGNOSES: 1. 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 3. Fracture of the medial epicondyle, incompetent medial collateral ligament. PROCEDURES PERFORMED: 1. Revision both components right total knee arthroplasty, 29658 2. Periarticular injection right knee. 3. Placement of continuous catheter adductor canal. ANESTHESIA: General. ANESTHESIOLOGIST: Per record. ESTIMATED BLOOD LOSS: 25 mL. COMPLICATIONS: None. INTRAVENOUS FLUIDS: Adequate. SPECIMENS: Bone. INSTRUMENTATION USED: [email or web address] Attune size 5 right CRS femoral component with [...] procedure) without the assistance of a skilled pastry assistant. A pastry assistant was medically necessary for positioning, retraction and instrume ntation. * Nursing Notes - Rosa Haque RN - 01/24/2022 6:40 AM EDT Vazquez removed 0630 * Plan of Care - Rosa Haque [...] Pt will complete shower transfer SBA Azra Franco, LACEY 01/23/2022 6:33 PM Outcome: Ongoing * Nursing [...] NOTE Carolina Manning Alt 61 y.o. female [id number] SURGEON Surgeon(s) and Role: * Puja Pendleton MD - Primary TRACK HELPER JONATHAN Schwartz ANESTHESIOLOGIST VETERINARY MEAT INSPECTOR: GURPREET Britton SURGICAL STAFF Operating Engineer: Cathy Ashby RN; Waldemar Churchill RN Nurse [...] Implant Name Type Inv. Item Serial No. Duck Bill Operator Lot No. LRB No. Used Action PALACOS R+G 1X40 SINGLE WITH GENTAMICIN - [id number] Other PALACOS R+G 1X40 SINGLE WITH GENTAMICIN [id number] Right 3 Implanted PATELLA - KNEE - [id number] PATELLA - KNEE DEPUY [id number] Right 1 Implanted PRESSFIT STEM - KNEE - [id number] PRESSFIT STEM - KNEE DEPUY [id number] Right 1 Implanted Revision Tibial Sleeve Porocoat Partially Coated 29mm DEPUY [id number] Right 1 Implanted revision Tibial Base Rotating Platform size 3 DEPUY [id number] Right 1 Implanted PRESSFIT STEM - KNEE - [id number] PRESSFIT STEM - KNEE DEPUY [id number] Right 1 Implanted Revision Distal Femoral Augment size 5 12mm DEPUY [id number] Right 1 Implanted Revision Posterior Femoral Augment size 5 4mm DEPUY [id number] Right 1 Implanted Revision Offset Stem Adaptor 4mm DEPUY [id number] Right 1 Implanted revision CRS Femoral size 5 right DEPUY [id number] Right 1 Implanted Revision CRS Rotating Platform Insert size 5 10mm AOX DEPUY [id number] Right 1 Implanted SPECIMENS ID Type Source Tests Collected by Time Destination A : Anterior Synovium x3 Tissue TISSUE FUNGUS CULTURE, ACID FAST CULTURE, TISSUE, ANAEROBE CULTURE,BACTERIAL CULTURE AND DIRECT SMEAR, LESION, TISSUE, DEVICE Puja Pendleton MD 01/23/2022 1235 Medardo Vuong APRN-DOG LICENSER January 23, 2022 2:18 PM * Nursing Notes - Jacqueline Blake RN - 01/23/2022 11:59 AM EDT Pt off unit to surgery * Nursing Notes - Amanda Mantilla RN - 01/18/2022 1:42 PM EDT 01/18/22 1338 Information Source Information Source patient Contact Information Trim Technician Name Amanda Mantilla RN Case Manager's Living Environment Lives With spouse Living Arrangements house (One story home) Provides Primary Care For no one Primary Care Provided By self Support System Immediate family Able to Return to Prior Arrangements yes Employment/Financial 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 Cognitive/Perceptual/Developmental Current [...] that she plans to return home with [facility] and then would later like to go to outpatient therapy at [facility]. Patient states that she has a wheeled walker, patient to instructed to bring with her on the day of surgery. Patient denies any other questions or needs at this time. CM to continue to follow and assist with discharge plans. documented in this encounterMercy [facility]. [facility]07-27-2022 Note* Nursing Notes - Greta Claudio RN - 01/24/2022 4:07 PM EDT Medardo at bedside speaking with patient. [facility]07-27-[facility] History of Present illness Narrative* Azra [...] instructions and continuity of care faxed to [facility]. * Amanda Mantilla RN - 01/24/2022 9:09 AM EDT Met with patient for follow up regarding discharge plan. Patient to return home with [facility].Questions answered regarding HHC and hemovac drain. Reviewed with patient that if she returns home with drain she will empty and record output, her [facility] nurse will report output to Dr. Pendleton's officeand pull drain when instructed by his office. Patient verbalizes understanding. Patient has a FWW, spouse to bring today. Follow up appointment has been made, informed patient that she will be receiving a post-op follow up call tomorrow. * Gera Dotson - 01/24/2022 8:50 AM EDT Total [...] Time In/Out Time In 1720 Time Out 1758 Total Visit Time 39 minutes Initial Evaluation/Screen [...] Supine to Sit, Rehab Eval Level of Lyons: Supine/Sit stand-by assist Physical Assist/Nonphysical Assist: Supine/Sit 1 person assist Transfer Skill: Sit to Stand, Rehab Eval Level of Lyons: Sit/Stand contact guard Physical Assist/Nonphysical Assist: Sit/Stand 1 person assist Weight-Bearing Restrictions: Sit/Stand weight-bearing as tolerated Assistive Device for Transfer: Sit/Stand wheeled walker Upper Body Dressing Level of Lyons independent Physical Assist/Nonphysical Assist set-up required Lower Body Dressing Level of Lyons moderate assist (50% patients effort) Physical Assist/Nonphysical [...] hygiene training Therapist Information License # [id number] 1. Pt will complete LB dressing MOD [...] Supine to Sit, Rehab Eval Level of Lyons: Supine/Sit stand-by assist Physical Assist/Nonphysical Assist: Supine/Sit 1 person assist Transfer Skill: Sit To Stand, Rehab Eval Lyons (Sit-Stand Transfers) contact guard Physical Assist/Nonphysical Assist: Sit/Stand 1 person assist Weight-Bearing Restrictions: Sit/Stand weight-bearing as tolerated Assistive Device For Transfer: Sit/Stand 2 wheeled walker Gait Skills, PT Eval Level of Lyons: Gait contact guard Physical Assist/Nonphysical Assist: Gait [...] plans to return home with spouse and [facility]. Referral was sent to [facility] prior to surgery, [facility] called back to report that C is covered at 90%, patient and spouse [...] request a 3 week follow up appointment. [facility] to remove asha. Patient denies any other questions or needs at this time. Updated patient information faxed to [facility]. Follow up appointment scheduled for 02/15/22 @ [...] IN ACCORDANCE WITH POC DISCUSSED WITH DR PENDLETON. documented in this encounterMercy [facility]. [facility]07-27-2022 Note* Nursing Notes - Greta Claudio RN - 01/24/2022 3:16 PM EDT Patient complaining of continuing 8/10 knee pain even after oxycodone and increasing onQ ball for one hour. Medardo uVong CNP is notified. He orders a 5mg one time dose of oxycodone and to increase onQball, will do this and monitor pain. [facility]07-27-2022 Note* Nursing Notes - Greta Clauido RN - 01/24/2022 2:32 PM EDT Discharge instructions and handouts are provided to the patient at this time. Education provided for hemovac drain care and emptying. She verbalizes understanding of this and is able to demonstrate emptying. Questions are answered. Patient complaining of some increased pain after therapy. Oxycodone provided- baldev SONG. Will monitor pain prior to discharging. Meds to beds with integrity seal intact delivered, patient verbalizes understanding of lovenox injections and new medications. Ice pack, ABDs, edgar hose given to patient. She denies further questions. [facility]07-27-[facility] Consult note* Andrea Bedolla MD - [...] CARE 132 (H) 70 - 100 MG/DL Stucco Laborer 205,925 GLUCOSE (POC DEVICE) Result Value Ref Range GLUCOSE, POINT OF CARE 196 (H) 70 - 100 MG/DL Stucco Laborer 206,281 GLUCOSE (POC DEVICE) Result Value Ref Range GLUCOSE, POINT OF CARE 169 (H) 70 - 100 MG/DL Stucco Laborer 206,821 REPEAT ABO/RH (D) TYPING Result Value [...] stable for discharge. Andrea Bedolla MD 01/24/[address] [facility] Work Phone: 1(912) 678-649007-27-2022 Consult note* Andrea Bedolla MD - 01/24/2022 [...] CARE 132 (H) 70 - 100 MG/DL Stucco Laborer 205,925 GLUCOSE (POC DEVICE) Result Value Ref Range GLUCOSE, POINT OF CARE 196 (H) 70 - 100 MG/DL Stucco Laborer 206,281 GLUCOSE (POC DEVICE) Result Value Ref Range GLUCOSE, POINT OF CARE 169 (H) 70 - 100 MG/DL Stucco Laborer 206,821 REPEAT ABO/RH (D) TYPING Result Value [...] Andrea Bedolla MD 01/23/2022 documented in [address] encounterMercy [facility]. [facility]07-27-2022 Note* Nursing Notes - Greta Claudio RN - 01/24/2022 11:20 AM EDT Assessment is complete and remains unchanged from previous at this time with any exceptions noted in the flowsheet. Patient denies further needs and is left with call light and personals in reach. [facility]07-27-20[facility] Note* Nursing Notes - Nata Lawrence [...] been happy with her care here at [facility]. [facility]07-27-[facility] Hospital Discharge instructions* Discharge Instructions* Amanda [...] discharged the same day as surgery, Dr. Pendleton's office will call you the morning after your discharge to follow up with how your recovery is progressing at home. * Discharge Instr - Activity* Amanda Mantilla RN - 01/24/2022 8:15 AM EDT Ambulate with wheeled walker until follow up appointment or directed by Dr. Pendleton. * Discharge Instr - Notify* Amanda Mantilla RN - 01/24/2022 8:16 AM EDT Contact Office ([phone]) if: > Total Knee ROM < 90 [...] also empty the drain anytime it is prison full. Follow these steps to empty your [...] not have Home Care, please call Dr. Pendleton's nurse ([phone]) the morning after discharge with the recorded [...] sent through Care Everywhere. * Enoxaparin (Lovenox) (Samoan) * docusate (oral/rectal) (Samoan) documented [facility]* Op Note - Puja Pendleton MD - 01/24/2022 7:52 AM EDT DATE OF PROCEDURE: 01/23/2022 ATTENDING PHYSICIAN: Puja Pendleton M.D. TRACK HELPER: Medardo Vuong CNP. 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 POSTOPERATIVE DIAGNOSES: 1. 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 3. Fracture of the medial epicondyle, incompetent medial collateral ligament. PROCEDURES PERFORMED: 1. Revision both components right total [place], [address] 2. Periarticular injection right knee. 3. Placement of continuous catheter adductor canal. ANESTHESIA: General. ANESTHESIOLOGIST: Per record. ESTIMATED BLOOD LOSS: 25 mL. COMPLICATIONS: None. INTRAVENOUS FLUIDS: Adequate. SPECIMENS: Bone. INSTRUMENTATION USED: DePuy Attune size 5 right CRS femoral component with [...] procedure) without the assistance of a skilled pastry assistant. A pastry assistant was medically necessary for positioning, retraction and instrume ntation. [employer] Work Phone: 1(415) 308-597507-27-2022 Note* Nursing Notes - Rosa Haque RN - 01/24/2022 6:40 AM EDT Vazquez removed 06 [employer]07-27-2022 Note* Plan of Care - Rosa Haque [...] Franco OT 01/23/2022 6:33 PM Outcome: Ongoing [facility]-27-2022 Note* Nursing Notes - Rosa Haque RN - 01/24/2022 4:00 AM EDT No change to assessment at this time - will continue to monitor. [facility]07-26-2022 Consult note* Andrea Bedolla MD - 01/23/2022 [...] am. GI prophylaxis. Andrea Bedolla MD 01/23/2022 [facility]07-26-2022 Note* Nursing Notes - Jacqueline Blake RN - 01/23/2022 4:17 PM EDT Assessment is complete and remains unchanged from previous at this time with any exceptions noted in the flowsheet. Patient denies further needs and is left with call light and personals in reach. [facility] Nurse Note* Margarita Lockett RN - 01/23/2022 2:52 PM EDT Patient transported to room 3760 by bed with 2 RN's. Patient stable and family waiting in room. Bedlock and in low position. Report given to Eneida RN. Wound reviewed and Qball check and is unclamped and infusing. documented in this encounterMer[facility]07-[facility]22 Nurse Surgical operation note* Margarita Lockett RN - 01/23/2022 2:52 PM EDT Patient transported to room 3760 by bed with 2 RN's. Patient stable and family waiting in room. Bedlock and in low position. Report given to Eneida RN. Wound reviewed and Qball check and is unclamped and infusing. [facility]07-26-[facility] Note* Brief Op Note - JONATHAN Schwartz - 01/23/2022 2:18 PM EDT POST OPERATIVE/PROCEDURE NOTE Carolina Manning Alt 61 y.o. female [id number] SURGEON Surgeon(s) and Role: * Puja Pendleton MD - Primary TRACK HELPER JONATHAN Schwartz ANESTHESIOLOGIST VETERINARY MEAT INSPECTOR: Kodak Falcon APRN-KAREN SURGICAL STAFF Operating Engineer: Cathy Ashby RN; Waldemar Churchill, RN Nurse Practitioner: JONATHAN Schwartz Scrub Person: [...] Implant Name Type Inv. Item Serial No. Duck Bill Operator Lot No. LRB No. Used Action PALACOS R+G 1X40 SINGLE WITH GENTAMICIN - [id number] Other PALACOS R+G 1X40 SINGLE WITH GENTAMICIN [id number] Right 3 Implanted PATELLA - KNEE - [id number] PATELLA - KNEE DEPUY [id number] Right 1 Implanted PRESSFIT STEM - KNEE - [id number] PRESSFIT STEM - KNEE DEPUY [id number] Right 1 Implanted Revision Tibial Sleeve Porocoat Partially Coated 29mm DEPUY [id number] Right 1 Implanted revision Tibial Base Rotating Platform size 3 DEPUY [id number] Right 1 Implanted PRESSFIT STEM - KNEE - [id number] PRESSFIT STEM - KNEE DEPUY [id number] Right 1 Implanted Revision Distal Femoral Augment size 5 12mm DEPUY [id number] Right 1 Implanted Revision Posterior Femoral Augment size 5 4mm DEPUY [id number] Right 1 Implanted Revision Offset Stem Adaptor 4mm DEPUY [id number] Right 1 Implanted revision CRS Femoral size 5 right DEPUY [id number] Right 1 Implanted Revision CRS Rotating Platform Insert size 5 10mm AOX DEPUY [id number] Right 1 Implanted SPECIMENS ID Type Source Tests Collected by Time Destination A : Anterior Synovium x3 Tissue TISSUE FUNGUS CULTURE, ACID FAST CULTURE, TISSUE, ANAEROBE CULTURE,BACTERIAL CULTURE AND DIRECT SMEAR, LESION, TISSUE, DEVICE Puja Pendleton MD 01/23/2022 1235 Medardo Vuong APRN-DOG LICENSER January 23, 2022 2:18 PM [facility]07-26-2022 Note* Nursing Notes - Jacqueline Blake RN - 01/23/2022 11:59 AM EDT Pt off unit to surgery [facility]07-21-2022 Note* Nursing Notes - Amanda Mantilla RN - 01/18/2022 1:42 PM EDT 01/18/22 1338 Information Source Information Source patient Contact Information Trim Technician Name Amanda Mantilla RN Case Manager's Living Environment Lives With spouse Living Arrangements house (One story home) Provides Primary Care For no one Primary Care Provided By self Support System Immediate family Able to Return to Prior Arrangements yes Employment/Financial 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 Cognitive/Perceptual/Developmental Current [...] that she plans to return home with [facility] and then would later like to go to outpatient therapy at [facility]. Patient states that she has a wheeled walker, patient to instructed to bring with her on the day of surgery. Patient denies any other questions or needs at this time. CM to continue to follow and assist with discharge plans. [facility]07-14-2022 History of Present illness Narrative* Freddy Manrique LPN - 01/11/2022 10:10 AM EDT Ortho Nurse - Patient Intake Room#: 2 Right knee pain of 6, partial done in 2009, no interventions since partial Date: 01/11/2022 10:28 AM Patient: Carolina Gutierrez MR#: [id number] : 1960 Age: 61 y.o. 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 [] [x] Name: Are you followed by pain management? [] [x] Name: Are you followed by any other specialists? 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 no * Puja Pendleton MD - 01/11/2022 10:10 AM EDT HPI: [...] major risks of revision surgery such as merary-prosthetic fracture, infection, component failure or loosening, nerve [...] nasal MRSA screening, scheduling an appointment for [facility] and the potential surgical date, and reviewing [...] [Cephalexin] Hives Penicillins Hives documented in this encounterMer[facility]06-[facility]-2022 Evaluation note* Encounter Date Diagnosis Assessment [...] treatment plan. Patient left in stable condition [facility] Other 05-04-2022 Evaluation note* Encounter Date Diagnosis [...] medication issues. 6. Prescriptions: Ozempic sent to [facility]. October, Hyperlipidemia, unspecified hyperlipidemia type (ICD-10 - E78.5) High cholesterol material was published 11/18 ldl 129- above target discuss with pcp consider starting statin per ada guidelines October, Dietary counseling and surveillance (ICD-10 - Z71.3) Eat well, exercise well, be well: dietary and fitness guidelines material was published see above October, BMI 35.0-35.9,adult (ICD-10 - Z68.35) Setting weight-loss goals material was published [facility] Other 04-15-2022 Hospital Discharge instructions Patient Education [...] water added (diluted fruit juice). Eat bland, giiu-pz-vopykd foods in small amounts as you are able. These foods include bananas, applesauce, rice, lean meats, toast, and crackers. Avoid drinking fluids that contain a lot of sugar or caffeine, such as energy drinks, sports drinks, and soda. Avoid alcohol. Avoid spicy or fatty foods. General instructions Take odrj-zei-hyyunix and prescription medicines only as told by your health care provider. Rest at home while you recover. Drink enough fluid to keep your urine pale yellow. Breathe slowly and deeply when you feel nauseous. Avoid smelling things that have strong odors. Wash your hands often using soap and water. If soap and water are not available, use hand impregnation operator. Make sure that all people in your [...] recommendations for eating and drinking and take hzcn-gon-bpfsnmp and prescription medicinesonly as told by your [...] 07/25/2005 Document Revised: 11/25/2018 Document Reviewed: 11/25/2018 [employer] Patient Education 2020 [employer]. Follow Up Care 09/14/2021 16:00:30 With:Teodora Ott CNP Address: When:1 month [facility] 04-06-2022 Hospital Discharge instructions Follow Up Care 10/04/2021 16:19:35 With:Haim Do Address: [place] [address] [place] [address]- [phone] Fax Business (1) When: Unknown Comments:cbc, cmp, iron studies in 6mofollow-up in 6mo [facility]03-21-2022 Hospital Discharge instructions Follow Up Care 09/18/2021 12:56:54 With:Haim Do Address: [place] [address] [place] [address] [phone] Fax Business (1) When: Unknown Comments:soon check iron studies, vitamin B12, esr, folate erythropoietin, reticulocyte count, SPEP, serum free light chains, serum immunofixation. Also check CBC and CMP soon. check cbc prior to f/u in 6 months. [facility]02-28-2022 Evaluation note* Encounter Date Diagnosis Assessment Notes [...] right wrist, initial encounter (ICD-10 - S69.91XA) [facility] Other 10-06-2021 Evaluation note* Encounter Date Diagnosis [...] diabetes medication issues. 6. Prescriptions: Ozempic refilled [facility] Other 12-01-2020 History general Narrative - Reported* [...] Surgery bilateral Hospitalization History see surgical hx [facility] Other 12-01-2020 History general Narrative - Reported* [...] bilaterally 05/2021 Hospitalization History see surgical hx [facility] Other 12-01-2020 History general Narrative - Reported* [...] replacement 12/2021 Hospitalization History see surgical hx [facility] Other 12-01-2020 History general Narrative - Reported* [...] Throat 05/2022 Hospitalization History see surgical hx [facility] Other 12-01-2020 History general Narrative - Reported* [...] Hospitalization History see surgical hx Hospitalization History [facility] 08/2022 [facility] Other 06-10-2016 Miscellaneous Notes* Telephone Encounter - [...] FreeT3. If low, may benefit by using Mcbrides Thyroid (she took disecated thyroid in 2003). [...] lab report. Please advise. [facility]Reason for visit Narrative* Chief Complaint METER Reason for Visit Dietary counseling a nd surveillance Hyperlipidemia Type 2 diabetes mellitus [facility] Work Phone: Evaluation + Plan note Future Appointments Appointment Date:10/13/2021 11:00:00 AM Scheduled Provider:Teodora Ott CNP Location:[facility] Appointment Type:BADH Follow Up Appointment Date:04/04/2022 02:45:00 PM Scheduled [...] 09/14/21 * CBC w/ Auto Diff 04/05/22 [facility]ments Appointment Date:10/13/2021 11:00:00 AM Scheduled Provider:Teodora Ott CNP Location:[facility] Appointment Type:[facility] Follow Up Appointment Date:04/04/2022 02:45:00 PM Scheduled Provider:Haim Do DO [facility] Office Visit 15 (FT) Diagnostic Tests Pending * Enteric Panel by PCR 10/07/21 * O & P Exam, Routine 10/07/21 * Giardia lamblia, Direct Detection EIA 10/07/21 Future Scheduled Tests Laboratory* CBC w/ Auto Diff 04/05/22 [facility]ments Appointment Date:11/23/2021 04:00:00 PM Scheduled Provider:Teodora Ott CNP Location:[facility] Appointment Type:[facility] Follow Up Appointment Date:04/04/2022 02:45:00 PM Scheduled Provider:Hami Do DO [facility] Type:ONC Office Visit 15 (FT) Future Scheduled Tests Laboratory* CBC w/ Auto Diff 04/05/22 Radiology* NM Gastric Emptying Study 10/13/21 [facility] Evaluation + Plan note Future Appointments Appointment Date:04/04/2022 02:45:00 PM Scheduled Provider:Haim Do DO Location:.ONCOLOGY Appointment Type:ONC Office Visit 15 (FT) Future Scheduled Tests Laboratory* CBC w/ Auto Diff 04/05/22 Radiology* NM Gastric Emptying Study 10/13/21 [facility] Evaluation + Plan note Future Appointments Appointment Date:05/17/2022 03:30:00 PM Scheduled Provider:Lorene Gordillo Location:.ONCOLOGY Appointment Type:ONC Office Visit 15 (FT) Appointment Date:05/21/2022 08:00:00 AM Scheduled Provider: Location:[facility] Appointment Type:Surgery FT Future Scheduled Tests Laboratory* CBC w/ Auto Diff 04/05/22 Radiology* NM Gastric Emptying Study 10/13/21 [facility] Evaluation + Plan note Future Appointments Appointment Date:05/21/2022 08:00:00 AM Scheduled Provider: Location:[facility] Appointment Type:Surgery FT Appointment Date:05/21/2022 08:30:00 AM Scheduled Provider:Lorene Gordillo Location:FT.ONCOLOGY Appointment Type:ONC Office Visit 15 (FT) Future Scheduled Tests Laboratory* CBC w/ Auto Diff 04/05/22 Radiology* NM Gastric Emptying Study 10/13/21 [facility]ments Appointment Date:11/21/2022 03:00:00 PM Scheduled Provider:Haim Do DO Location:.ONCOLOGY Appointment Type:ONC Office Visit 15 (FT) Future Scheduled Tests Laboratory* CBC w/ Auto Diff 04/05/22 * CBC w/ Auto Diff 11/21/22 * Comprehensive Metabolic Panel 11/21/22 * Ferritin 11/21/22 * Iron Level 11/21/22 * Iron Percent Saturation 11/21/22 Radiology* NM Gastric Emptying Study 10/13/21 [facility] App[facility]ments Appointment Date:06/21/2022 08:00:00 AM Scheduled Provider: [facility] Type:NM Myocard Spect Multi Rest/Stress-Res Appointment Date:06/21/2022 09:00:00 AM Scheduled Provider: [facility] App[facility] Type:NM Myocard Spect Multi Rest/Stress - R Appointment Date:06/21/2022 09:30:00 AM Scheduled Provider: [facility] App[facility] Type:NM Myocard Spect Multi Rest/Stress-Str Appointment Date:06/21/2022 10:30:00 AM Scheduled Provider: [facility] App[facility] Type:NM Myocar Spect Multi Rest/Stress - St Appointment Date:11/21/2022 03:00:00 PM Scheduled Provider:Haim Do DO [facility] Type:ONC Office Visit 15 (FT) Future Scheduled Tests Laboratory* CBC w/ Auto Diff 04/05/22 * CBC w/ Auto Diff 11/21/22 * Comprehensive Metabolic Panel 11/21/22 * Ferritin 11/21/22 * Iron Level 11/21/22 * Iron Percent Saturation 11/21/22 Radiology* NM Myocardial Spect Rest/Stress 1 Day 06/21/22 * NM Gastric Emptying Study 10/13/21 [facility] App[facility]ments Appointment Date:07/24/2022 03:30:00 PM Scheduled Provider:Serge SLOAN CNP [facility] Type:Cardiology Follow Up (FT) Appointment Date:11/21/2022 03:00:00 PM Scheduled Provider:Haim Do DO [facility] Type:ONC Office Visit 15 (FT) Future Scheduled Tests Laboratory* CBC w/ Auto Diff 04/05/22 * CBC w/ Auto Diff 11/21/22 * Comprehensive Metabolic Panel 11/21/22 * Ferritin 11/21/22 * Iron Level 11/21/22 * Iron Percent Saturation 11/21/22 Radiology* NM Gastric Emptying Study 10/13/21 [facility] App[facility]ments Appointment Date:12/12/2022 03:45:00 PM Scheduled Provider:Haim Do DO [facility] Type:ONC Office Visit 15 (FT) Appointment Date:12/27/2022 08:20:00 AM Scheduled Provider: [facility] Lab Draw Appointment Date:01/14/2023 04:00:00 PM Scheduled Provider:Silvestre Benavides MD Location:[facility] Appointment Type:FM Open Appointment Date:04/05/2023 01:40:00 PM Scheduled Provider:Teodora Ott CNP Location[facility] Appointment Type:[facility] Follow Up Future Scheduled Tests Laboratory* HgbA1c 10/01/22 * TSH With T4fr Reflex 10/01/22 * CBC w/ Auto Diff 04/05/22 * CBC w/ Auto Diff 10/01/22 * CBC w/ Auto Diff 11/21/22 * Comprehensive Metabolic Panel 10/01/22 * Comprehensive Metabolic Panel 11/21/22 * Ferritin 11/21/22 * Iron Level 11/21/22 * Iron Percent Saturation 11/21/22 * Lipid Panel 10/01/22 [facility] evaluation + Plan note Future Appointments Appointment Date:01/29/2024 02:00:00 PM Scheduled Provider:Berry Canales Location:[facility] Appointment Type: Hospital Follow Up w/TCM Future Scheduled Tests Laboratory* CBC w/ Auto Diff 05/10/23 [facility] evaluation + Plan note Future Appointments Appointment Date:02/06/2024 03:30:00 PM Scheduled Provider:Oswald Curry PA-C Location:[facility] Appointment Type:Cardiology Inpatient Follow Up (FT) Future Scheduled Tests Laboratory* CBC w/ Auto Diff 05/10/23 [facility] evaluation + Plan note Future Appointments Appointment Date:03/03/2024 03:00:00 PM Scheduled Provider: [facility] Type:CV Holter/Event (FT) Appointment Date:03/12/2024 08:00:00 AM Scheduled Provider:Oswald Curry PA-C Location:[facility] Appointment Type:Cardiology Follow Up (FT) Future Scheduled Tests Laboratory* CBC w/ Auto Diff 05/10/23 [facility] evaluation + Plan note Future Appointments Appointment Date:03/12/2024 08:00:00 AM Scheduled Provider:Oswald Curry PA-C Location:[facility] Appointment Type:Cardiology Follow Up (FT) Future Scheduled Tests Laboratory* CBC w/ Auto Diff 05/10/23 [facility] evaluation + Plan note Future Appointments Appointment Date:06/22/2024 01:15:00 PM Scheduled Provider:Oswald Curry PA-C Location:[facility] Appointment Type:Cardiology Follow Up (FT) Future Scheduled Tests Laboratory* CBC w/ Auto Diff 05/10/23 [facility] evaluation + Plan note Future Appointments Appointment Date:09/28/2024 01:45:00 PM Scheduled Provider:Oswald Curry PA-C Location:[facility] Appointment Type:Cardiology Follow Up (FT) [facility] evaluation + Plan note Future Appointments Appointment Date:11/09/2024 01:00:00 PM Scheduled Provider:Oswald Curry PA-C Location:[facility] Appointment Type:Cardiology Follow Up (FT) [facility] evaluation + Plan note Future Appointments Appointment Date:02/08/2025 02:15:00 PM Scheduled Provider:Oswald Curry PA-C Location:[facility] Appointment Type:Cardiology Follow Up (FT) [facility] evaluation note* Diagnosis Unspecified hypothyroidism- Primary 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 [facility] Diagnosis Right knee pain, unspecified chronicity- Primary [facility] [place]* Diagnosis Acute postoperative pain of right knee- Primary 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, initial encounter [facility] [place]* Diagnosis Hx of total knee arthroplasty, right- Primary documented [facility] this [facility] [place] noteNo assessment information availableC[facility] Clinic [facility] Work Phone: evaluation note* Diagnosis Rheumatoid arthritis involving multiple sites [...] nonspecific immunological findings documented in this encounter [facility] note* Diagnosis Hx of total knee arthroplasty, right- Primary [facility] Diagnosis Rheumatoid arthritis of multiple sites without rheumatoid factor (HCC)- Primary Rheumatoid arthritis documented in this encounter [facility] noteNo [facility] Other Evaluation note* Diagnosis Bilateral posterior capsular opacification- Primary Unspecified after-cataract 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 Other and unspecified nonspecific immunological findings Family history of rheumatoid arthritis Family history of arthritis Family history of gout Family history of other endocrine and metabolic diseases Secondary osteoarthritis of multiple sites Osteoarthrosis involving, or with mention of more than one site, but not specified as generalized, multiple sites Rotator cuff arthropathy of left shoulder Bilateral chronic knee pain Pain in joint, lower leg Bilateral hand pain Pain in limb Bilateral wrist pain Pain in joint, forearm Long-term use of high-risk medication Vitamin D deficiency Unspecified vitamin D deficiency Encounter for long-term (current) use of NSAIDs Encounter for long-term (current) use of non-steroidal anti-inflammatories Postmenopausal osteoporosis of multiple sites Personal history of other medical treatment documented in this encounter [facility] note* Diagnosis Left shoulder pain, unspecified chronicity- Primary documented in this encounter [facility] note* Diagnosis 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 Failed orthopedic implant, initial encounter ([facility]) documented in this encounter [facility] note* Diagnosis Left shoulder pain, unspecified chronicity documented in this encounter [facility] note* Diagnosis 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 Failed orthopedic implant, initial encounter ([facility]) documented in this encounter [facility] note* Diagnosis Loose orthopedic implant, subsequent encounter- Primary S/P reverse total shoulder arthroplasty, left documented in this encounter [facility] note* Diagnosis Onset Date Resolution Status Dietary counseling and surveillance acute Hyperlipidemia acute Type 2 diabetes mellitus [facility] Work Phone: Evaluation note* Diagnosis Pre-op examination- Primary Preoperative examination, unspecified Primary basal cell carcinoma (BCC) of right breast PONV (postoperative nausea and vomiting) Nausea with vomiting Elevated blood pressure reading in office with white coat syndrome, without diagnosis of hypertension Hyperlipidemia, unspecified hyperlipidemia type Asthma without status asthmaticus without complication, unspecified asthma severity, unspecified whether persistent Gastroesophageal reflux disease without esophagitis Esophageal reflux Unspecified hypothyroidism Type 2 diabetes mellitus without complication, without long-term current use of insulin (HCC) Anemia, unspecified type Rheumatoid arthritis of multiple sites without rheumatoid factor (HCC) Rheumatoid arthritis Failed orthopedic implant, initial encounter ([facility]) History of pulmonary embolism Personal history of pulmonary embolism 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 orthopedic implant, initial encounter ([facility]) * Assessment & Plan Note - Louis Cates APRN.CNP - 12/20/2023 10:08 AM EDT Associated Problem(s): History of pulmonary embolism Assessment: following bout COVID in 2019. Was on xarelto for a year, completed course of thinner. No recurrence. * Assessment & Plan Note - Louis Cates APRN.CNP - 12/20/2023 10:08 AM EDT Associated Problem(s): Failed orthopedic implant (HCC) Assessment: left shoulder, presents for surgical intervention. Denies pain. * Assessment & Plan Note - Louis Cates APRN.CNP - 12/20/2023 10:07 AM EDT Associated Problem(s): Rheumatoid arthritis of multiple sites without rheumatoid factor (HCC) Assessment: follows with Dr. Neff on Rinvoq. Stable. * Assessment & Plan Note - Louis Cates APRN.CNP - 12/20/2023 10:07 AM EDT Associated Problem(s): Primary basal cell carcinoma (BCC) of right breast Assessment: underwent cryotherapy, states resolved * Assessment & Plan Note - Louis Cates APRN.CNP - 12/20/2023 10:06 AM EDT Associated Problem(s): Anemia Assessment: Stable. Denies bleeding. Hemoglobin (g/dL) Date Value 05/07/2022 12.6 07/03/2007 13.7 10/10/2005 13.3 08/08/2005 14.1 * Assessment & Plan Note - Louis Cates APRN.CNP - 12/20/2023 10:06 AM EDT Associated Problem(s): Diabetes (HCC) Assessment: Currently taking ozempic, takes on Saturdays, instructed to hold on January 03, restart following surgery. A1C today No results found for: HBA1C * Assessment & Plan Note - Louis Cates APRN.CNP - 12/20/2023 10:05 AM EDT Associated Problem(s): Unspecified hypothyroidism Assessment: stable with current medication regimen * Assessment & Plan Note - Louis Cates APRN.CNP - 12/20/2023 10:05 AM EDT Associated Problem(s): GERD (gastroesophageal reflux disease) Assessment: Managed and stable with current medication. Denies difficulty swallowing or any bleeding. * Assessment & Plan Note - Louis Cates APRN.CNP - 12/20/2023 10:05 AM EDT Associated Problem(s): Asthma without status asthmaticus Assessment: stable and asymptomatic, uses inhalers. No recent URI. Lungs clear to auscultation, follows with pulmonology annually in [place] * Assessment & Plan Note - Louis Cates APRN.CNP - 12/20/2023 10:01 AM EDT Associated Problem(s): Hyperlipidemia Assessment: no current medication, 11/18 LDL 129, wants to discuss with PCP prior to starting statin * Assessment & Plan Note - Louis Cates APRN.CNP - 12/20/2023 10:01 AM EDT Associated Problem(s): Elevated blood pressure reading in office with white coat syndrome, without diagnosis of hypertension Assessment: stable, asymptomatic for CP, SOB, palpitations. States BP runs higher in medical offices. Last 5 Encounter BP Readings: Date: BP: 12/20/2023 132/84 05/07/2022 150/78 01/27/2014 120/80 05/06/2012 118/74 10/30/2011 116/76 * Assessment & Plan Note - Louis Cates APRN.CNP - 12/20/2023 9:38 AM EDT Associated Problem(s): PONV (postoperative nausea and vomiting) Assessment: states meds work well [facility] Diagnosis Pre-op examination- Primary Preoperative examination, unspecified Primary basal cell carcinoma (BCC) of right breast PONV (postoperative nausea and vomiting) Nausea with vomiting Elevated blood pressure reading in office with white coat syndrome, without diagnosis of hypertension Hyperlipidemia, unspecified hyperlipidemia type Asthma without status asthmaticus without complication, unspecified asthma severity, unspecified whether persistent Gastroesophageal reflux disease without esophagitis Esophageal reflux Unspecified hypothyroidism Type 2 diabetes mellitus without complication, without long-term current use of insulin (HCC) Anemia, unspecified type Rheumatoid arthritis of multiple sites without rheumatoid factor (HCC) Rheumatoid arthritis Failed orthopedic implant, initial encounter ([facility]) History of pulmonary embolism Personal history of pulmonary embolism 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 Failed orthopedic implant, initial encounter ([facility]) Loose orthopedic implant, subsequent encounter Status post reverse total replacement of left shoulder documented in this encounter [facility] note* Diagnosis Pre-op examination- Primary Preoperative examination, unspecified Primary basal cell carcinoma (BCC) of right breast PONV (postoperative nausea and vomiting) Nausea with vomiting Elevated blood pressure reading in office with white coat syndrome, without diagnosis of hypertension Hyperlipidemia, unspecified hyperlipidemia type Asthma without status asthmaticus without complication, unspecified asthma severity, unspecified whether persistent Gastroesophageal reflux disease without esophagitis Esophageal reflux Unspecified hypothyroidism Type 2 diabetes mellitus without complication, without long-term current use of insulin (HCC) Anemia, unspecified type Rheumatoid arthritis of multiple sites without rheumatoid factor (HCC) Rheumatoid arthritis Failed orthopedic implant, initial encounter ([facility]) History of pulmonary embolism Personal history of pulmonary embolism 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 Status post reverse total replacement of left shoulder documented in this encounter [facility] note* Diagnosis Pre-op examination- Primary Preoperative examination, unspecified Primary basal cell carcinoma (BCC) of right breast PONV (postoperative nausea and vomiting) Nausea with vomiting Elevated blood pressure reading in office with white coat syndrome, without diagnosis of hypertension Hyperlipidemia, unspecified hyperlipidemia type Asthma without status asthmaticus without complication, unspecified asthma severity, unspecified whether persistent Gastroesophageal reflux disease without esophagitis Esophageal reflux Unspecified hypothyroidism Type 2 diabetes mellitus without complication, without long-term current use of insulin (HCC) Anemia, unspecified type Rheumatoid arthritis of multiple sites without rheumatoid factor (HCC) Rheumatoid arthritis Failed orthopedic implant, initial encounter ([facility]) History of pulmonary embolism Personal history of pulmonary embolism Preoperative examination- Primary Preoperative examination, unspecified Type 2 diabetes mellitus without complication, without long-term current use of insulin (HCC) PONV (postoperative nausea and vomiting) Nausea with vomiting Asthma without status asthmaticus without complication, unspecified asthma severity, unspecified whether persistent Hyperlipidemia, unspecified hyperlipidemia type Elevated blood pressure reading in office with white coat syndrome, without diagnosis of hypertension Inappropriate sinus tachycardia (HCC) Other specified cardiac dysrhythmias History of pulmonary embolism Personal history of pulmonary embolism Gastroesophageal reflux disease without esophagitis Esophageal reflux 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 Follows with [facility] rheumatology, Dr. Neff. Pt was instructed by Dr. Neff to hold Rinvoq and Celebrex for 1 week prior to surgery, and restart Rinvoq 1-2 weeks post-op if stable, free of infection and off abx. Pt aware of instructions. * Assessment & Plan Note - Serge Ty PA-C - 03/30/2024 4:26 PM EDTAssociated Problem(s): Leg swelling Assessment: Ongoing BLE edema since hospitalizations in November and December. On Lasix, which is helping. Pt reports that edema is worse today d/t doing a lot of driving today to appointments (pt drove overan hour and a half to get to her [facility] appointment today). * Assessment & Plan Note - Serge Ty PA-C - 03/30/2024 4:23 PM EDTAssociated Problem(s): Diabetes (HCC) Assessment: Controlled on Ozempic (on Saturdays). Monitors BG at home. FBS 95 per pt. A1C 5.6% 11/2023. A1C pending. Pt instructed to hold Ozempic within 1 week of surgery, pt verbalized understanding. 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 * Assessment & Plan Note - Serge Ty PA-C - 03/30/2024 4:22 PM EDTAssociated Problem(s): GERD (gastroesophageal reflux disease) Assessment: Stable, sx managed on lansoprazole. * Assessment & Plan Note - Serge Ty PA-C - 03/30/2024 4:22 PM EDTAssociated Problem(s): History of pulmonary embolism Assessment: 2019, following COVID. Pt was treated with Xarelto x 1 year. No recurrence and no AC currently. * Assessment & Plan Note - Serge Ty PA-C - 03/30/2024 4:21 PM EDTAssociated Problem(s): Inappropriate sinus tachycardia (HCC) Assessment: Stable, on metoprolol. Follows with outside cardiology at [facility] 03/23/24 Oswald Curry PA-C. Pt reports that she was previously having SOB when walking. Pt reports SOB has resolved since starting metoprolol. RRR on exam today. * Assessment & Plan Note - Serge Ty PA-C - 03/30/2024 4:20 PM EDTAssociated Problem(s): Elevated blood pressure reading in office with white coat syndrome, without diagnosis of hypertension Assessment: BP today 119/74. Pt was recently started on metoprolol for IST per outside cardiology. * Assessment & Plan Note - Serge Ty PA-C - 03/30/2024 4:19 PM EDTAssociated Problem(s): Hyperlipidemia Assessment: No RX currently. Monitored by PCP. * Assessment & Plan Note - Serge Ty PA-C - 03/30/2024 4:19 PM EDTAssociated Problem(s): Asthma without status asthmaticus Assessment: Stable, well controlled on Singulair BID, Advair and Spiriva. Pt reports that she uses albuterol rarely. Follows with outside allergy Dr. Hernandez JULIEN 03/25/[address] [place] [facility] 02/04/24. Lungs CTAB, SpO2 97% on RA. * Assessment & Plan Note - Serge Ty PA-C - 03/30/2024 3:53 PM EDTAssociated Problem(s): PONV (postoperative nausea and vomiting) Assessment: Pt reports PONV with previous surgeries/procedures. [facility] Diagnosis Pre-op examination- Primary Preoperative examination, unspecified Primary basal cell carcinoma (BCC) of right breast PONV (postoperative nausea and vomiting) Nausea with vomiting Elevated blood pressure reading in office with white coat syndrome, without diagnosis of hypertension Hyperlipidemia, unspecified hyperlipidemia type Asthma without status asthmaticus without complication, unspecified asthma severity, unspecified whether persistent Gastroesophageal reflux disease without esophagitis Esophageal reflux Unspecified hypothyroidism Type 2 diabetes mellitus without complication, without long-term current use of insulin (HCC) Anemia, unspecified type Rheumatoid arthritis of multiple sites without rheumatoid factor (HCC) Rheumatoid arthritis Failed orthopedic implant, initial encounter ([facility]) History of pulmonary embolism Personal history of pulmonary embolism Preoperative examination- Primary Preoperative examination, unspecified Type 2 diabetes mellitus without complication, without long-term current use of insulin (HCC) PONV (postoperative nausea and vomiting) Nausea with vomiting Asthma without status asthmaticus without complication, unspecified asthma severity, unspecified whether persistent Hyperlipidemia, unspecified hyperlipidemia type Elevated blood pressure reading in office with white coat syndrome, without diagnosis of hypertension Inappropriate sinus tachycardia (HCC) Other specified cardiac dysrhythmias History of pulmonary embolism Personal history of pulmonary embolism Gastroesophageal reflux disease without esophagitis Esophageal reflux 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 Leg swelling Swelling of limb Rheumatoid arthritis of multiple sites without rheumatoid factor (HCC) Rheumatoid arthritis S/P shoulder surgery- Primary Other postprocedural status Loose orthopedic implant, subsequent encounter S/P shoulder surgery Other postprocedural status Loose orthopedic implant, subsequent encounter documented in this encounter [facility] note* Diagnosis Pre-op examination- Primary Preoperative examination, unspecified Primary basal cell carcinoma (BCC) of right breast PONV (postoperative nausea and vomiting) Nausea with vomiting Elevated blood pressure reading in office with white coat syndrome, without diagnosis of hypertension Hyperlipidemia, unspecified hyperlipidemia type Asthma without status asthmaticus without complication, unspecified asthma severity, unspecified whether persistent Gastroesophageal reflux disease without esophagitis Esophageal reflux Unspecified hypothyroidism Type 2 diabetes mellitus without complication, without long-term current use of insulin (HCC) Anemia, unspecified type Rheumatoid arthritis of multiple sites without rheumatoid factor (HCC) Rheumatoid arthritis Failed orthopedic implant, initial encounter ([facility]) History of pulmonary embolism Personal history of pulmonary embolism Preoperative examination- Primary Preoperative examination, unspecified Type 2 diabetes mellitus without complication, without long-term current use of insulin (HCC) PONV (postoperative nausea and vomiting) Nausea with vomiting Asthma without status asthmaticus without complication, unspecified asthma severity, unspecified whether persistent Hyperlipidemia, unspecified hyperlipidemia type Elevated blood pressure reading in office with white coat syndrome, without diagnosis of hypertension Inappropriate sinus tachycardia (HCC) Other specified cardiac dysrhythmias History of pulmonary embolism Personal history of pulmonary embolism Gastroesophageal reflux disease without esophagitis Esophageal reflux 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 Leg swelling Swelling of limb Rheumatoid arthritis of multiple sites without rheumatoid factor (HCC) Rheumatoid arthritis S/P shoulder surgery Other postprocedural status Loose orthopedic implant, subsequent encounter documented in this encounter [facility] note* Diagnosis Pre-op examination- Primary Preoperative examination, unspecified Primary basal cell carcinoma (BCC) of right breast PONV (postoperative nausea and vomiting) Nausea with vomiting Elevated blood pressure reading in office with white coat syndrome, without diagnosis of hypertension Hyperlipidemia, unspecified hyperlipidemia type Asthma without status asthmaticus without complication, unspecified asthma severity, unspecified whether persistent Gastroesophageal reflux disease without esophagitis Esophageal reflux Unspecified hypothyroidism Type 2 diabetes mellitus without complication, without long-term current use of insulin (HCC) Anemia, unspecified type Rheumatoid arthritis of multiple sites without rheumatoid factor (HCC) Rheumatoid arthritis Failed orthopedic implant, initial encounter ([facility]) History of pulmonary embolism Personal history of pulmonary embolism Preoperative examination- Primary Preoperative examination, unspecified Type 2 diabetes mellitus without complication, without long-term current use of insulin (HCC) PONV (postoperative nausea and vomiting) Nausea with vomiting Asthma without status asthmaticus without complication, unspecified asthma severity, unspecified whether persistent Hyperlipidemia, unspecified hyperlipidemia type Elevated blood pressure reading in office with white coat syndrome, without diagnosis of hypertension Inappropriate sinus tachycardia (HCC) Other specified cardiac dysrhythmias History of pulmonary embolism Personal history of pulmonary embolism Gastroesophageal reflux disease without esophagitis Esophageal reflux 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 [place] [facility]* Diagnosis Pre-op examination- Primary Preoperative examination, unspecified Primary basal cell carcinoma (BCC) of right breast PONV (postoperative nausea and vomiting) Nausea with vomiting Elevated blood pressure reading in office with white coat syndrome, without diagnosis of hypertension Hyperlipidemia, unspecified hyperlipidemia type Asthma without status asthmaticus without complication, unspecified asthma severity, unspecified whether persistent Gastroesophageal reflux disease without esophagitis Esophageal reflux Unspecified hypothyroidism Type 2 diabetes mellitus without complication, without long-term current use of insulin (HCC) Anemia, unspecified type Rheumatoid arthritis of multiple sites without rheumatoid factor (HCC) Rheumatoid arthritis Failed orthopedic implant, initial encounter ([facility]) History of pulmonary embolism Personal history of pulmonary embolism Preoperative examination- Primary Preoperative examination, unspecified Type 2 diabetes mellitus without complication, without long-term current use of insulin (HCC) PONV (postoperative nausea and vomiting) Nausea with vomiting Asthma without status asthmaticus without complication, unspecified asthma severity, unspecified whether persistent Hyperlipidemia, unspecified hyperlipidemia type Elevated blood pressure reading in office with white coat syndrome, without diagnosis of hypertension Inappropriate sinus tachycardia (HCC) Other specified cardiac dysrhythmias History of pulmonary embolism Personal history of pulmonary embolism Gastroesophageal reflux disease without esophagitis Esophageal reflux 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 Leg swelling Swelling of limb Rheumatoid arthritis of multiple sites without rheumatoid factor (HCC) Rheumatoid arthritis S/P shoulder surgery- Primary Other postprocedural status [facility] [place] [facility]* Diagnosis Pre-op examination- Primary Preoperative examination, unspecified Primary basal cell carcinoma (BCC) of right breast PONV (postoperative nausea and vomiting) Nausea with vomiting Elevated blood pressure reading in office with white coat syndrome, without diagnosis of hypertension Hyperlipidemia, unspecified hyperlipidemia type Asthma without status asthmaticus without complication, unspecified asthma severity, unspecified whether persistent Gastroesophageal reflux disease without esophagitis Esophageal reflux Unspecified hypothyroidism Type 2 diabetes mellitus without complication, without long-term current use of insulin (HCC) Anemia, unspecified type Rheumatoid arthritis of multiple sites without rheumatoid factor (HCC) Rheumatoid arthritis Failed orthopedic implant, initial encounter ([facility]) History of pulmonary embolism Personal history of pulmonary embolism Preoperative examination- Primary Preoperative examination, unspecified Type 2 diabetes mellitus without complication, without long-term current use of insulin ([facility]) PONV (postoperative nausea and vomiting) Nausea with vomiting Asthma without status asthmaticus without complication, unspecified asthma severity, unspecified whether persistent Hyperlipidemia, unspecified hyperlipidemia type Elevated blood pressure reading in office with white coat syndrome, without diagnosis of hypertension Inappropriate sinus tachycardia (HCC) Other specified cardiac dysrhythmias History of pulmonary embolism Personal history of pulmonary embolism Gastroesophageal reflux disease without esophagitis Esophageal reflux 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 Leg swelling Swelling of limb Rheumatoid arthritis of multiple sites without rheumatoid factor (HCC) Rheumatoid arthritis Failed orthopedic implant, subsequent encounter- Primary Rheumatoid arthritis of multiple sites without rheumatoid factor ([facility]) Rheumatoid arthritis Dehiscence of operative wound, initial encounter [facility] [place] [facility]* Diagnosis Pre-op examination- Primary Preoperative examination, unspecified Primary basal cell carcinoma (BCC) of right breast PONV (postoperative nausea and vomiting) Nausea with vomiting Elevated blood pressure reading in office with white coat syndrome, without diagnosis of hypertension Hyperlipidemia, unspecified hyperlipidemia type Asthma without status asthmaticus without complication, unspecified asthma severity, unspecified whether persistent Gastroesophageal reflux disease without esophagitis Esophageal reflux Unspecified hypothyroidism Type 2 diabetes mellitus without complication, without long-term current use of insulin (HCC) Anemia, unspecified type Rheumatoid arthritis of multiple sites without rheumatoid factor (HCC) Rheumatoid arthritis Failed orthopedic implant, initial encounter ([facility]) History of pulmonary embolism Personal history of pulmonary embolism Preoperative examination- Primary Preoperative examination, unspecified Type 2 diabetes mellitus without complication, without long-term current use of insulin ([facility]) PONV (postoperative nausea and vomiting) Nausea with vomiting Asthma without status asthmaticus without complication, unspecified asthma severity, unspecified whether persistent Hyperlipidemia, unspecified hyperlipidemia type Elevated blood pressure reading in office with white coat syndrome, without diagnosis of hypertension Inappropriate sinus tachycardia (HCC) Other specified cardiac dysrhythmias History of pulmonary embolism Personal history of pulmonary embolism Gastroesophageal reflux disease without esophagitis Esophageal reflux 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 Leg swelling Swelling of limb Rheumatoid arthritis of multiple sites without rheumatoid factor (HCC) Rheumatoid arthritis S/P shoulder surgery Other postprocedural status [facility] [place] [facility]* Diagnosis 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, including hip- Primary Impetigo Actinic keratosis Encounter for postoperative wound check [facility] [place] [facility]* Diagnosis Pre-op examination- Primary Preoperative examination, unspecified Primary basal cell carcinoma (BCC) of right breast PONV (postoperative nausea and vomiting) Nausea with vomiting Elevated blood pressure reading in office with white coat syndrome, without diagnosis of hypertension Hyperlipidemia, unspecified hyperlipidemia type Asthma without status asthmaticus without complication, unspecified asthma severity, unspecified whether persistent Gastroesophageal reflux disease without esophagitis Esophageal reflux Unspecified hypothyroidism Type 2 diabetes mellitus without complication, without long-term current use of insulin (HCC) Anemia, unspecified type Rheumatoid arthritis of multiple sites without rheumatoid factor (HCC) Rheumatoid arthritis Failed orthopedic implant, initial encounter (HCC) History of pulmonary embolism Personal history of pulmonary embolism Preoperative examination- Primary Preoperative examination, unspecified Type 2 diabetes mellitus without complication, without long-term current use of insulin (HCC) PONV (postoperative nausea and vomiting) Nausea with vomiting Asthma without status asthmaticus without complication, unspecified asthma severity, unspecified whether persistent Hyperlipidemia, unspecified hyperlipidemia type Elevated blood pressure reading in office with white coat syndrome, without diagnosis of hypertension Inappropriate sinus tachycardia (HCC) Other specified cardiac dysrhythmias History of pulmonary embolism Personal history of pulmonary embolism Gastroesophageal reflux disease without esophagitis Esophageal reflux 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 Leg swelling Swelling of limb Rheumatoid arthritis of multiple sites without rheumatoid factor (HCC) Rheumatoid arthritis Infection of prosthetic joint, subsequent encounter- Primary MRSA (methicillin resistant Staphylococcus aureus) Methicillin resistant Staphylococcus aureus in conditions classified elsewhere and of unspecified site S/P shoulder surgery Other postprocedural status Dehiscence of operative wound, subsequent encounter Type 2 diabetes mellitus without complication, without long-term current use of insulin (HCC) S/P reverse total shoulder arthroplasty, left Rheumatoid arthritis of multiple sites without rheumatoid factor (HCC) Rheumatoid arthritis Obesity, Class III, BMI >= 40 Morbid obesity documented in this encounter [facility] note* Diagnosis Pre-op examination- Primary Preoperative examination, unspecified Primary basal cell carcinoma (BCC) of right breast PONV (postoperative nausea and vomiting) Nausea with vomiting Elevated blood pressure reading in office with white coat syndrome, without diagnosis of hypertension Hyperlipidemia, unspecified hyperlipidemia type Asthma without status asthmaticus without complication, unspecified asthma severity, unspecified whether persistent Gastroesophageal reflux disease without esophagitis Esophageal reflux Unspecified hypothyroidism Type 2 diabetes mellitus without complication, without long-term current use of insulin ([facility]) Anemia, unspecified type Rheumatoid arthritis of multiple sites without rheumatoid factor (HCC) Rheumatoid arthritis Failed orthopedic implant, initial encounter ([facility]) History of pulmonary embolism Personal history of pulmonary embolism Preoperative examination- Primary Preoperative examination, unspecified Type 2 diabetes mellitus without complication, without long-term current use of insulin ([facility]) PONV (postoperative nausea and vomiting) Nausea with vomiting Asthma without status asthmaticus without complication, unspecified asthma severity, unspecified whether persistent Hyperlipidemia, unspecified hyperlipidemia type Elevated blood pressure reading in office with white coat syndrome, without diagnosis of hypertension Inappropriate sinus tachycardia (HCC) Other specified cardiac dysrhythmias History of pulmonary embolism Personal history of pulmonary embolism Gastroesophageal reflux disease without esophagitis Esophageal reflux 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 Leg swelling Swelling of limb Rheumatoid arthritis of multiple sites without rheumatoid factor ([facility]) Rheumatoid arthritis Failed orthopedic implant, subsequent encounter- Primary Failed orthopedic implant, subsequent encounter documented in this encounter [facility] note* Diagnosis Pre-op examination- Primary Preoperative examination, unspecified Primary basal cell carcinoma (BCC) of right breast PONV (postoperative nausea and vomiting) Nausea with vomiting Elevated blood pressure reading in office with white coat syndrome, without diagnosis of hypertension Hyperlipidemia, unspecified hyperlipidemia type Asthma without status asthmaticus without complication, unspecified asthma severity, unspecified whether persistent Gastroesophageal reflux disease without esophagitis Esophageal reflux Unspecified hypothyroidism Type 2 diabetes mellitus without complication, without long-term current use of insulin (HCC) Anemia, unspecified type Rheumatoid arthritis of multiple sites without rheumatoid factor (HCC) Rheumatoid arthritis Failed orthopedic implant, initial encounter ([facility]) History of pulmonary embolism Personal history of pulmonary embolism Preoperative examination- Primary Preoperative examination, unspecified Type 2 diabetes mellitus without complication, without long-term current use of insulin ([facility]) PONV (postoperative nausea and vomiting) Nausea with vomiting Asthma without status asthmaticus without complication, unspecified asthma severity, unspecified whether persistent Hyperlipidemia, unspecified hyperlipidemia type Elevated blood pressure reading in office with white coat syndrome, without diagnosis of hypertension Inappropriate sinus tachycardia (HCC) Other specified cardiac dysrhythmias History of pulmonary embolism Personal history of pulmonary embolism Gastroesophageal reflux disease without esophagitis Esophageal reflux 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 Leg swelling Swelling of limb Rheumatoid arthritis of multiple sites without rheumatoid factor (HCC) Rheumatoid arthritis Failed orthopedic implant, subsequent encounter [facility] Chronic pain of right knee- Primary documented in this encounter [facility]* Diagnosis Osteoporosis, unspecified osteoporosis type, unspecified pathological fracture presence ([facility])- Primary documented in this encounter [facility]* Diagnosis Severe persistent asthma with (acute) exacerbation ([facility])- Primary documented in this encounter [facility]* Diagnosis Severe persistent asthma with (acute) exacerbation ([facility])- Primary 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 ([facility]) documented in this encounter [facility]* Diagnosis Pre-op examination- Primary Preoperative examination, unspecified Primary basal cell carcinoma (BCC) of right breast PONV (postoperative nausea and vomiting) Nausea with vomiting Elevated blood pressure reading in office with white coat syndrome, without diagnosis of hypertension Hyperlipidemia, unspecified hyperlipidemia type Asthma without status asthmaticus without complication, unspecified asthma severity, unspecified whether persistent Gastroesophageal reflux disease without esophagitis Esophageal reflux Unspecified hypothyroidism Type 2 diabetes mellitus without complication, without long-term current use of insulin (HCC) Anemia, unspecified type Rheumatoid arthritis of multiple sites without rheumatoid factor (HCC) Rheumatoid arthritis Failed orthopedic implant, initial encounter ([facility]) History of pulmonary embolism Personal history of pulmonary embolism Preoperative examination- Primary Preoperative examination, unspecified Type 2 diabetes mellitus without complication, without long-term current use of insulin ([facility]) PONV (postoperative nausea and vomiting) Nausea with vomiting Asthma without status asthmaticus without complication, unspecified asthma severity, unspecified whether persistent Hyperlipidemia, unspecified hyperlipidemia type Elevated blood pressure reading in office with white coat syndrome, without diagnosis of hypertension Inappropriate sinus tachycardia (HCC) Other specified cardiac dysrhythmias History of pulmonary embolism Personal history of pulmonary embolism Gastroesophageal reflux disease without esophagitis Esophageal reflux 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 Leg swelling Swelling of limb Rheumatoid arthritis of multiple sites without rheumatoid factor (HCC) Rheumatoid arthritis Infection of prosthetic joint, subsequent encounter- Primary MRSA (methicillin resistant Staphylococcus aureus) Methicillin resistant Staphylococcus aureus in conditions classified elsewhere and of unspecified site S/P shoulder surgery Other postprocedural status documented in this encounter [facility] note* Diagnosis Pre-op examination- Primary Preoperative examination, unspecified Primary basal cell carcinoma (BCC) of right breast PONV (postoperative nausea and vomiting) Nausea with vomiting Elevated blood pressure reading in office with white coat syndrome, without diagnosis of hypertension Hyperlipidemia, unspecified hyperlipidemia type Asthma without status asthmaticus without complication, unspecified asthma severity, unspecified whether persistent Gastroesophageal reflux disease without esophagitis Esophageal reflux Unspecified hypothyroidism Type 2 diabetes mellitus without complication, without long-term current use of insulin (HCC) Anemia, unspecified type Rheumatoid arthritis of multiple sites without rheumatoid factor ([facility]) Rheumatoid arthritis Failed orthopedic implant, initial encounter ([facility]) History of pulmonary embolism Personal history of pulmonary embolism Preoperative examination- Primary Preoperative examination, unspecified Type 2 diabetes mellitus without complication, without long-term current use of insulin ([facility]) PONV (postoperative nausea and vomiting) Nausea with vomiting Asthma without status asthmaticus without complication, unspecified asthma severity, unspecified whether persistent Hyperlipidemia, unspecified hyperlipidemia type Elevated blood pressure reading in office with white coat syndrome, without diagnosis of hypertension Inappropriate sinus tachycardia (HCC) Other specified cardiac dysrhythmias History of pulmonary embolism Personal history of pulmonary embolism Gastroesophageal reflux disease without esophagitis Esophageal reflux 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 Leg swelling Swelling of limb Rheumatoid arthritis of multiple sites without rheumatoid factor (HCC) Rheumatoid arthritis Skin cancer- Primary Unspecified malignant neoplasm of skin, site unspecified documented in this encounter [facility] note* Diagnosis Pre-op examination- Primary Preoperative examination, unspecified Primary basal cell carcinoma (BCC) of right breast PONV (postoperative nausea and vomiting) Nausea with vomiting Elevated blood pressure reading in office with white coat syndrome, without diagnosis of hypertension Hyperlipidemia, unspecified hyperlipidemia type Asthma without status asthmaticus without complication, unspecified asthma severity, unspecified whether persistent Gastroesophageal reflux disease without esophagitis Esophageal reflux Unspecified hypothyroidism Type 2 diabetes mellitus without complication, without long-term current use of insulin (HCC) Anemia, unspecified type Rheumatoid arthritis of multiple sites without rheumatoid factor (HCC) Rheumatoid arthritis Failed orthopedic implant, initial encounter ([facility]) History of pulmonary embolism Personal history of pulmonary embolism Preoperative examination- Primary Preoperative examination, unspecified Type 2 diabetes mellitus without complication, without long-term current use of insulin ([facility]) PONV (postoperative nausea and vomiting) Nausea with vomiting Asthma without status asthmaticus without complication, unspecified asthma severity, unspecified whether persistent Hyperlipidemia, unspecified hyperlipidemia type Elevated blood pressure reading in office with white coat syndrome, without diagnosis of hypertension Inappropriate sinus tachycardia (HCC) Other specified cardiac dysrhythmias History of pulmonary embolism Personal history of pulmonary embolism Gastroesophageal reflux disease without esophagitis Esophageal reflux 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 Leg swelling Swelling of limb Rheumatoid arthritis of multiple sites without rheumatoid factor (HCC) Rheumatoid arthritis Rheumatoid arthritis of multiple sites without rheumatoid factor (HCC)- Primary Rheumatoid arthritis Elevated LFTs Other abnormal blood chemistry Anemia of chronic disease Anemia of other chronic disease Elevated sed rate Elevated sedimentation rate Elevated C-reactive protein (CRP) Vitamin D deficiency Unspecified vitamin D deficiency Screening-pulmonary TB Screening examination for pulmonary tuberculosis [facility] Diagnosis Pneumonia of left lower lobe due to Streptococcus pneumoniae (CMS/HCC)- Primary Recurrent sinus infections Unspecified sinusitis (chronic) Mild intermittent asthma without complication (CMS/HCC) Severe persistent asthma with (acute) exacerbation (CMS/HCC) [facility] Seasonal allergic rhinitis due to pollen documented in this encounter [facility]* Diagnosis Onset Date Resolution Status Admit Date Laceration of left knee acute M ay 2024 3:52pm Left knee injury acute October 3:52pm [facility] Work Phone: Evaluation note* Diagnosis Pre-op examination- Primary Preoperative examination, unspecified Primary basal cell carcinoma (BCC) of right breast PONV (postoperative nausea and vomiting) Nausea with vomiting Elevated blood pressure reading in office with white coat syndrome, without diagnosis of hypertension Hyperlipidemia, unspecified hyperlipidemia type Asthma without status asthmaticus without complication, unspecified asthma severity, unspecified whether persistent (HCC) Gastroesophageal reflux disease without esophagitis Esophageal reflux Unspecified hypothyroidism Type 2 diabetes mellitus without complication, without long-term current use of insulin (HCC) Anemia, unspecified type Rheumatoid arthritis of multiple sites without rheumatoid factor (HCC) Rheumatoid arthritis Failed orthopedic implant, initial encounter History of pulmonary embolism Personal history of pulmonary embolism Preoperative examination- Primary Preoperative examination, unspecified Type 2 diabetes mellitus without complication, without long-term current use of insulin (HCC) PONV (postoperative nausea and vomiting) Nausea with vomiting Asthma without status asthmaticus without complication, unspecified asthma severity, unspecified whether persistent (HCC) Hyperlipidemia, unspecified hyperlipidemia type Elevated blood pressure reading in office with white coat syndrome, without diagnosis of hypertension Inappropriate sinus tachycardia (HCC) Other specified cardiac dysrhythmias History of pulmonary embolism Personal history of pulmonary embolism Gastroesophageal reflux disease without esophagitis Esophageal reflux 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 Leg swelling Swelling of limb Rheumatoid arthritis of multiple sites without rheumatoid factor (HCC) Rheumatoid arthritis Rheumatoid arthritis of multiple sites without rheumatoid factor (HCC) Rheumatoid arthritis [facility] [place] [facility] Diagnosis Pre-op examination- Primary Preoperative examination, unspecified Primary basal cell carcinoma (BCC) of right breast PONV (postoperative nausea and vomiting) Nausea with vomiting Elevated blood pressure reading in office with white coat syndrome, without diagnosis of hypertension Hyperlipidemia, unspecified hyperlipidemia type Asthma without status asthmaticus without complication, unspecified asthma severity, unspecified whether persistent (HCC) Gastroesophageal reflux disease without esophagitis Esophageal reflux Unspecified hypothyroidism Type 2 diabetes mellitus without complication, without long-term current use of insulin (HCC) Anemia, unspecified type Rheumatoid arthritis of multiple sites without rheumatoid factor (HCC) Rheumatoid arthritis Failed orthopedic implant, initial encounter History of pulmonary embolism Personal history of pulmonary embolism Preoperative examination- Primary Preoperative examination, unspecified Type 2 diabetes mellitus without complication, without long-term current use of insulin (HCC) PONV (postoperative nausea and vomiting) Nausea with vomiting Asthma without status asthmaticus without complication, unspecified asthma severity, unspecified whether persistent (HCC) Hyperlipidemia, unspecified hyperlipidemia type Elevated blood pressure reading in office with white coat syndrome, without diagnosis of hypertension Inappropriate sinus tachycardia (HCC) Other specified cardiac dysrhythmias History of pulmonary embolism Personal history of pulmonary embolism Gastroesophageal reflux disease without esophagitis Esophageal reflux 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 Leg swelling Swelling of limb Rheumatoid arthritis of multiple sites without rheumatoid factor (HCC) Rheumatoid arthritis Rheumatoid arthritis of multiple sites without rheumatoid factor (HCC)- Primary Rheumatoid arthritis Elevated LFTs Other abnormal blood chemistry Anemia of chronic disease Anemia of other chronic disease Elevated sed rate Elevated sedimentation rate Elevated C-reactive protein (CRP) Vitamin D deficiency Unspecified vitamin D deficiency [facility] [place] [facility] Diagnosis Pneumonia of left lower lobe due to Streptococcus pneumoniae- Primary Moderate persistent asthma with acute exacerbation (HCC) [facility] Diagnosis Pre-op examination- Primary Preoperative examination, unspecified Primary basal cell carcinoma (BCC) of right breast PONV (postoperative nausea and vomiting) Nausea with vomiting Elevated blood pressure reading in office with white coat syndrome, without diagnosis of hypertension Hyperlipidemia, unspecified hyperlipidemia type Asthma without status asthmaticus without complication, unspecified asthma severity, unspecified whether persistent (HCC) Gastroesophageal reflux disease without esophagitis Esophageal reflux Unspecified hypothyroidism Type 2 diabetes mellitus without complication, without long-term current use of insulin (HCC) Anemia, unspecified type Rheumatoid arthritis of multiple sites without rheumatoid factor (HCC) Rheumatoid arthritis Failed orthopedic implant, initial encounter History of pulmonary embolism Personal history of pulmonary embolism Preoperative examination- Primary Preoperative examination, unspecified Type 2 diabetes mellitus without complication, without long-term current use of insulin (HCC) PONV (postoperative nausea and vomiting) Nausea with vomiting Asthma without status asthmaticus without complication, unspecified asthma severity, unspecified whether persistent (HCC) Hyperlipidemia, unspecified hyperlipidemia type Elevated blood pressure reading in office with white coat syndrome, without diagnosis of hypertension Inappropriate sinus tachycardia (HCC) Other specified cardiac dysrhythmias History of pulmonary embolism Personal history of pulmonary embolism Gastroesophageal reflux disease without esophagitis Esophageal reflux 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 Leg swelling Swelling of limb Rheumatoid arthritis of multiple sites without rheumatoid factor (HCC) Rheumatoid arthritis Rheumatoid arthritis of multiple sites without rheumatoid factor (HCC)- Primary Rheumatoid arthritis 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 Other and unspecified nonspecific immunological findings Bilateral hand pain Pain in limb Bilateral chronic knee pain Pain in joint, lower leg Chronic ankle pain, bilateral Elevated sed rate Elevated sedimentation rate Elevated LFTs Other abnormal blood chemistry Vitamin D deficiency Unspecified vitamin D deficiency Elevated C-reactive protein (CRP) Secondary osteoarthritis of multiple sites Osteoarthrosis involving, or with mention of more than one site, but not specified as generalized, multiple sites Family history of rheumatoid arthritis Family history of arthritis Long-term use of high-risk medication documented in this encounter [facility] course Narrative No data available for this section [facility] No data available for this section [facility] No data available for this section [facility] Reason for referral (narrative)* Diagnostic Procedure Only (Routine) - Authorized Specialty Diagnoses / Procedures Referred By Contac t Referred To Contact XR IMAGING Diagnoses Left shoulder pain, unspecified chronicity Procedures XR SHOULDER GENERAL 3V OR MORE AP/TRUE AP/OTHER LEFT RADEX SHOULDER COMPLETE MINIMUM 2 VIEWS John Holly MD [address] [place] [address] [place] [address] Referral ID Status Reason Start Date Expiration Date Visits Requested Visits Authorized [id number] Authorized Auto-Generat ed Referral 10/09/2023 11/07/2024 1 1 [facility] for referral (narrative)* Diagnostic Procedure Only (Routine) - Closed Specialty Diagnoses / Procedures Referred By Contac t Referred To Contact XR IMAGING Diagnoses Left shoulder pain, unspecified chronicity Procedures XR SHOULDER GENERAL 3V OR MORE AP/TRUE AP/OTHER LEFT RADEX SHOULDER COMPLETE MINIMUM 2 VIEWS John Holly MD [address] [phone] Xr Imaging [facility] Referral ID Status Reason Start Date Expiration Date V isits Requested Visits Authorized [id number] Closed Auto-Generate d Referral 10/09/2023 11/07/2024 1 1 T [facility] for referral (narrative)* Outpatient Procedure (Routine) - Pending Review Specialty Diagnoses / Procedures Referred By Bernieac t Referred To Contact [facility] Diagnoses Pre-op examination Procedures ECG COMPLETE ECG ROUTINE ECG W/LEAST 12 LDS W/I&R Louis Cates APRN.DOG LIC[employer]ER [address] [place] [address] [facility] [address] [phone] Referral ID Status Reason Start Date Expiration Date Visits Requested Visits Authorized [id number] Pending Review Auto-Generat ed Referral 12/20/2023 12/19/2024 1 1 [facility] for referral (narrative)* Diagnostic Procedure Only (Routine) - Closed Specialty Diagnoses / Procedures Referred By Contac t Referred To Contact XR IMAGING Diagnoses S/P shoulder surgery Loose orthopedic implant, subsequent encounter Procedures XR SHOULDER GENERAL 3V OR MORE AP/TRUE AP/OTHER LEFT RADEX SHOULDER COMPLETE MINIMUM 2 VIEWS Steve Gambino PA [address] [phone] [place] [address] Referral ID Status Reason Start Date Expiration Date V isits Requested Visits Authorized [id number] Closed Auto-Generate d Referral 04/20/2024 05/20/2025 1 1 [facility] for referral (narrative)* Diagnostic Procedure Only (Routine) - Closed Specialty Diagnoses / Procedures Referred By Contac t Referred To Contact XR IMAGING Diagnoses S/P shoulder surgery Loose orthopedic implant, subsequent encounter Procedures XR SHOULDER GENERAL 3V OR MORE AP/TRUE AP/OTHER LEFT RADEX SHOULDER COMPLETE MINIMUM 2 VIEWS Steve Gambino PA [address] [phone] Xr Imaging [facility] Referral ID Status Reason Start Date Expiration Date V isits Requested Visits Authorized [id number] Closed Auto-Generate d Referral 04/20/2024 05/20/2025 1 1 [facility] for referral (narrative)* Diagnostic Procedure Only (Routine) - Authorized Specialty Diagnoses / Procedures Referred By Contac t Referred To Contact XR IMAGING Diagnoses S/P shoulder surgery Procedures XR SHOULDER GENERAL 3V OR MORE AP/TRUE AP/OTHER LEFT RADEX SHOULDER COMPLETE MINIMUM 2 VIEWS John Holly MD [address] [phone] [place] [address] Referral ID Status Reason Start Date Expiration Date Visits Requested Visits Authorized [id number] Authorized Auto-Generat ed Referral 06/12/2025 1 1 * Diagnostic Procedure Only (Routine) - New Request Specialty Diagnoses / Procedures Referred By Contac t Referred To Contact XR IMAGING Diagnoses S/P shoulder surgery Procedures XR SHOULDER GENERAL 3V OR MORE AP/TRUE AP/OTHER LEFT RADEX SHOULDER COMPLETE MINIMUM 2 VIEWS John Hloly MD [address] [phone] Xr Imaging [place] [address] Referral ID Status Reason Start Date Expiration Date Visits Requested Visits Authorized [id number] New Request Auto-Generat ed Referral 06/12/2025 1 1 [facility] for referral (narrative)* Diagnostic Procedure Only (Routine) - Closed Specialty Diagnoses / Procedures Referred By Bernieac t Referred To Contact XR IMAGING Diagnoses S/P shoulder surgery Procedures XR SHOULDER GENERAL 3V OR MORE AP/TRUE AP/OTHER LEFT RADEX SHOULDER COMPLETE MINIMUM 2 VIEWS John Holly MD [address] [phone] Xr Imaging [place] [address] Referral ID Status Reason Start Date Expiration Date V isits Requested Visits Authorized [id number] Closed Auto-Generate d Referral 05/13/2024 06/12/2025 1 1 [facility] for referral (narrative)* Outpatient Procedure (Routine) - New Request Specialty Diagnoses / Procedures Referred By Brittany t Referred To Contact [facility] Diagnoses Failed orthopedic implant, subsequent encounter Procedures EMG(NEURO/NI) NERVE CONDUCTION STUDIES 9-10 STUDIES John Holly MD [address] [facility] [place] [address] [address] [place] [address] [place], [place] [address] [address] Referral ID Status Reason Start Date Expiration Date Visits Requested Visits Authorized [id number] New Request Auto-Generat ed Referral 06/05/2024 06/05/2025 1 1 * Diagnostic Procedure Only (Routine) - Closed Specialty Diagnoses / Procedures Referred By Contac t Referred To Contact XR IMAGING Diagnoses Failed orthopedic implant, subsequent encounter Procedures XR SHOULDER GENERAL 3V OR MORE AP/TRUE AP/OTHER LEFT RADEX SHOULDER COMPLETE MINIMUM 2 VIEWS John Holly MD [address] [phone] Xr Imaging [place] [address] Referral ID Status Reason Start Date Expiration Date V isits Requested Visits Authorized [id number] Closed Auto-Generate d Referral 06/05/2024 07/05/2025 1 1 [facility] for referral (narrative)* Diagnostic Procedure Only (Routine) - Closed Specialty Diagnoses / Procedures Referred By Brittany rahman Referred To Contact XR IMAGING Diagnoses Failed orthopedic implant, subsequent encounter Procedures XR SHOULDER GENERAL 3V OR MORE AP/TRUE AP/OTHER LEFT RADEX SHOULDER COMPLETE MINIMUM 2 VIEWS John Holly MD [address] [place] [address] Xr Imaging [place] [address] Referral ID Status Reason Start Date Expiration Date V isits Requested Visits Authorized [id number] Closed Auto-Generate d Referral 06/05/2024 07/05/2025 1 1 [facility] for referral (narrative)No reason for referral [facility] Work Phone: Reason for visit Narrative* Auth/Cert Specialty Diagnoses / Procedures Referred By Brittany rahman Referred To Contact Diagnoses 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, initial encounter 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, initial encounter [T84.092A] Procedures ND TOTAL KNEE ARTHROPLASTY ARTHROPLASTY KNEE TOTAL Puja Pendleton MD [address] [place] [address] Referral ID Status Reason Start Date Expiration Date Visits Re quested Visits Authorized [id number] 01/12/2022 [address] [facility] Diagnostic Procedure Only (Routine) - Closed Specialty Diagnoses / Procedures Referred By Brittany rahman Referred To Contact XR IMAGING Diagnoses Failed orthopedic implant, subsequent encounter Procedures XR SHOULDER GENERAL 3V OR MORE AP/TRUE AP/OTHER LEFT RADEX SHOULDER COMPLETE MINIMUM 2 VIEWS John Holly MD [address] [place] [address] [place] [address] Referral ID Status Reason Start Date Expiration Date V isits Requested Visits Authorized [id number] Closed Auto-Generate d Referral 06/05/2024 07/05/2025 1 1 [facility] Discharge Instructions * Manuel Stoner CNP - 05/16/2017 Please refer to [...] your surgery date, please call us at [phone] Preoperative Medication Instructions In preparation for surgery please continue all of your current medications with the following changes: Carolina Gutierrez Home Medication Instructions Prior to Surgery GUILLERMO:[id number] Printed on:05/13/17 1039 Medication Information Take last [...] puff 2 (two) times a day YES L.ACID/L.CASEI/B.BIF/B.LEONARDO/FOS (PROBIOTIC BLEND ORAL) Take by mouth every [...] medications that contain aspirin, such as Baylee [place], Pepto- Bismol, Anacin), antiinflammatory medications such as Advil, Motrin, Ibuprofen, Naproxen, Aleve, Baylee [place], Diclofenac, Voltaren, Daypro, Etodolac, Ketoprofen, Piroxicam, Relafen, Nabumetone, etc. Also discontinue Vitamin C, Vitamin E, Alger-3 Fatty Acid, Fish Oil or Lovaza, and [...] cardiogram (ECG) (EKG) Summary Purpose Family History Relationship Condition Age at Onset Recorded Date/T [place] father Unknown Hypertension Unknown History of stroke Unknown grandparent Diabetes mellitus Unknown Not Specified Unknown Malignant neoplasm Unknown Relationship Condition Age at Onset Recorded Date/T [place] father Unknown Hypertension Unknown History of stroke Unknown grandparent Diabetes mellitus Unknown mother Unknown Malignant neoplasm Unknown Advance Directives Latest Code Status on File Code Status Date Activated Date Inactivated Comments Full Code 01/23/2022 2:13 PM Advance Directive Response Recorded Date/ Time Advance Directives No April 27, 2017 8:20am Latest Code Status on File Code Status Date Activated Date Inactivated Comments Full Code 01/23/2022 2:13 PM Advance Directive Response Recorded Date/ Time Advance Directives No April 27, 2017 7:20am Reason for Referral Specialty Diagnoses / Procedures Referred By Brittany rahman Referred To Contact CT IMAGING Diagnoses Encounter for observation for other suspected diseases and conditions ruled out Procedures CT HUMERUS WO IVCON LEFT CT UPPER EXTREMITY W/O CONTRAST MATERIAL John Holly MD [address] [place] [address] [place] [address] Referral ID Status Reason Start Date Expiration Date Visits Requested Visits Authorized [id number] Authorized Auto-Generat ed Referral 4 06/17/2025 1 1 Specialty Diagnoses / Procedures Referred By Brittany rahman Referred To Contact Diagnoses 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 orthopedic implant, initial encounter (HCC) Procedures REFER TO PACC - PRE ANESTHESIA CONSULTATION CLINIC OFFICE/OUTPATIENT NEW HIGH MDM 60 MINUTES John Holly MD [address] [place] [address] Referral ID Status Reason Start Date Expiration Date Visits Requested Visits Authorized [id number] Authorized PCP Requested Referral 11/04/2023 11/03/2024 1 1 Specialty Diagnoses / Procedures Referred By Contac t Referred To Contact CT IMAGING Diagnoses Status post reverse total replacement of left shoulder Procedures CT SHOULDER WO IVCON LEFT CT UPPER EXTREMITY W/O CONTRAST MATERIAL John Holly MD [address] [place] [address] [place] [address] Referral ID Status Reason Start Date Expiration Date Visits Requested Visits Authorized [id number] Authorized Auto-Generat ed Referral 10/14/2023 11/12/2024 1 1 Specialty Diagnoses / Procedures Referred By Contac t Referred To Contact Diagnoses Rheumatoid arthritis of multiple sites without rheumatoid factor (HCC) Stevo Neff MD [address] [place] [address] Referral ID Status Reason Start Date Expiration Date Visits Re quested Visits Authorized [id number] Closed 1 1 Specialty Diagnoses / Procedures Referred By Contac t Referred To Contact Diagnoses Hx of total knee arthroplasty, right Procedures XR KNEE RIGHT 3 VIEWS Medardo Vuong APRN-DOG LICENSER [address] [place] [address] Referral ID Status Reason Start Date Expiration Date V isits Requested Visits Authorized [id number] New Request 02/09/2022 03/06/2023 1 1 Specialty Diagnoses / Procedures Referred By Contac t Referred To Contact Physical Therapy Diagnoses Acute postoperative pain of right knee Medardo Vuong, [employer] PROCESSOR-DOG LICENSER [address] [place] [address] Referral ID Status Reason Start Date Expiration Date V isits Requested Visits Authorized [id number] New Request 01/23/2022 02/17/2023 1 1 Scheduling Instructions . Specialty Diagnoses / Procedures Referred By Contac t Referred To Contact Diagnoses Right knee pain, unspecified chronicity Procedures XR KNEE RIGHT 3 VIEWS XR KNEE RIGHT 4+ VIEWS Puja Pendleton MD [address] [place] [address] Referral ID Status Reason Start Date Expiration Date V isits Requested Visits Authorized [id number] New Request 01/11/2022 02/05/2023 1 1 Specialty Diagnoses / Procedures Referred By Contac t Referred To Contact Diagnoses Right knee pain, unspecified chronicity Procedures XR BONE LENGTH STUDY Puja Pendleton MD [address] [place] [address] Referral ID Status Reason Start Date Expiration Date V isits Requested Visits Authorized [id number] Pending Review 01/11/2022 02/05/2023 1 1 Chief Complaint and Reason for Visit Chief Complaint R05.3 Chief Complaint Dysuria Chief Complaint E11.65 Chief Complaint Admit Date C44.722 September 16, 2024 10: 00am Chief Complaint Admit Date C44.722 September 16, 2024 10: 00am D04.72 October 28, 2024 9:2 0am Left knee laceration after fall October 3:52pm Reason for Visit Admit Date Laceration of left knee November 20, 2024 3 :52pm Left knee injury November 20, 2024 3:52p m Chief Complaint Admit Date C44.722 September 16, 2024 10: 00am D04.72 October 28, 2024 9:2 0am Left knee laceration after fall October 3:52pm M25.562 November 20, 2024 5:07p m removal of stitches in left knee December 082024 9:20am Chief Complaint Admit Date D04.72 October 28, 2024 9:2 0am Left knee laceration after fall October 3:52pm M25.562 November 20, 2024 5:07p m removal of stitches in left knee December 082024 9:20am Poss infected incision December 20, 2024 1 2:05pm D49.2 December 23, 2024 5:33 pm Reason for Visit Admit Date Laceration of left knee November 20, 2024 3 :52pm Left knee injury November 20, 2024 3:52p m Encounter for removal of sutures December 082024 9:20am Cellulitis of leg, left December 20, 2024 12:05pm Chief Complaint Admit Date Left knee laceration after fall October 3:52pm M25.562 November 20, 2024 5:07p m removal of stitches in left knee December 082024 9:20am Poss infected incision December 20, 2024 1 2:05pm D49.2 December 23, 2024 5:33 pm squamous cell carcinoma right leg C44.72 2 February 11, 2025 8:56am Additional Source Comments Shante Delarosa DPM - 05/16/2017 12:22 PM Rosa Celestin DO - 05/13/2017 10:48 AM Rosa Celestin DO - 05/13/2017 10:48 AM EST H&P Notes (unrecognized sect ion and content) INTERVAL HISTORY AND PHYSICAL Patient Name: Carolina Gutierrez Admit Date: [id number] MR #: [id number] : 1960 The H&P has been reviewed [...] for elective/low risk surgery-LEFT FOOT HARDWARE REMOVAL [facility] OR 05/16/17 pending laboratory/results of cardiac stress [...] acceptable cardiac risk based on the 2014 [place] [employer] [place] [employer] (ACC/AHA) guideline on Perioperative Cardiovascular [...] venous thrombosis prophylaxis per primary service. Recommend: 2011 Antithrombotic therapy for VTE disease: Antithrombotic Therapy and Prevention of Thrombosis, 9th ed: [place] [employer] Evidence- Based Clinical Practice Guidelines. Chief Complaint Patient presents with Pre-operative Medical Risk Stratification History of Present Illness Carolina Gutierrez is a 56 y.o. female who presents for preoperative medical risk stratification consult at the request of Shante Delarosa DPM prior to LEFT FOOT HARDWARE REMOVAL [facility] OR 05/16/17. Pt had left foot surgery [...] the 100's Diverticulosis DVT (deep venous thrombosis) (HCC) R lower leg Eczema GERD (gastroesophageal reflux disease) Hypothyroidism since age 24 Irritable bowel syndrome PONV (postoperative nausea and vomiting) Varicosities Past Medical History Pertinent Negatives: Diagnosis Date Noted Bleeding disorder (HCC) 05/09/2015 Cancer (HCC) 09/10/2016 Coronary artery disease 05/09/2015 Deep vein thrombosis (HCC) 05/09/2015 History of blood transfusion 05/09/2015 No blood products 05/09/2015 Pulmonary embolism (HCC) 05/09/2015 Sleep apnea, obstructive 05/09/2015 Past Surgical History: Procedure Laterality Date ARTHRODESIS SUBTALAR Left 05/24/2015 Procedure: NAVICULOCUNEIFORM ARTHRODESIS LEFT; Surgeon: Shante Delarosa DPM; Location: [facility] Main OR; Service: ARTHROPLASTY TOE Left 09/14/2016 Procedure: LEFT 5TH TOE ARTHROPLASTY ; Surgeon: Shante Delarosa DPM; Location: [facility] Main OR; Service: BUNIONECTOMY LAPIDUS Left 09/14/2016 Procedure: LEFT FOOT LAPIDUS ; Surgeon: Shante Delarosa DPM; Location: [facility] Main OR; Service: CHOLECYSTECTOMY HARDWARE REMOVAL FOOT Left 10/28/2015 Procedure: HARDWARE REMOVAL LEFT FOOT; Surgeon: Shante Delarosa DPM; Location: [facility] Main OR; Service: HYSTERECTOMY JOINT REPLACEMENT 2007, 2008 partial knee replacement bilat OSTEOTOMY Left 05/24/2015 Procedure: CHAMPAG[place] CALCANEAL OSTEOTOMY LEFT; Surgeon: Shante Delarosa DPM; Location: [facility] Main OR; Service: OSTEOTOMY CALCANEUS POSTERIOR Left 09/14/2016 Procedure: LEFT FOOT CALCANEAL OSTEOTOMY; Surgeon: Shante Delarosa DPM; Location: [facility] Main OR; Service: REMOVAL HARDWARE Left 09/14/2016 Procedure: LEFT FOOT REMOVAL OF HARDWARE; Surgeon: Shante Delarosa DPM; Location: [facility] Main OR; Service: right foot achilles tendon lengethening 2012 TENDON REPAIR ACHILLES (OR LENGTHENING) Left 05/24/2015 Procedure: TENDON REPAIR ACHILLES (OR LENGTHENING) LEFT; Surgeon: Shante Delarosa DPM; Location: [facility] Main OR; Service: TENDON REPAIR TIBULUS POSTERIOR / RESECTION GASTRONEMIUS Left 05/24/2015 Procedure: POSTERIOR TIBIAL TENDON DEBRIDEMENT AND REPAIR LEFT; Surgeon: Shante Delarosa DPM; Location: [facility] Main OR; Service: Social History Substance Use [...] a day Yes 1 puff, Inhalation, BID L.ACID/L.CASEI/B.BIF/B.LEONARDO/FOS (PROBIOTIC BLEND ORAL) Take by mouth every [...] Oral, QAM, Pt takes 11/2 tablets Mon, Sat, Sat, Sat levothyroxine (SYNTHROID, LEVOTHROID) 75 MCG tablet Take 75 mcg by mouth every morning Pt takes 2 tablets , , Sun . 75 mcg, Oral, QAM, Pt takes 2 tablets , , Sun oxymetazoline (AFRIN) 0.05 % nasal spray [...] Exam BP 138/81 Pulse 81 Temp 97.9 F (36.6 C ) Ht 4' 11 Wt 89.8 kg (198 [...] 15.5 inches Recent Results (from the past 91743 hours) XR CERVICAL SPINE AP/LAT 05/09/2015 (Final) [...] Degenerative disc disease at C5-6. Workstation ID: [id number] Electrocardiogram-tracing independently reviewed and interpreted-diffuse T-wave inversion clinically anterior possibly suggestive of ischemia.in this encounter Formatting of this note may be different from the original. Assessment and Plan 1. Preoperative testing Preoperative medical risk stratification indicates that the patient is at acceptable risk for elective/low risk surgery-LEFT FOOT HARDWARE REMOVAL [facility] OR 05/16/17 pending laboratory/results of cardiac stress [...] acceptable cardiac risk based on the 2014 [place] [employer] [place] [employer] (ACC/AHA) guideline on Perioperative Cardiovascular [...] Therapy and Prevention of Thrombosis, 9th ed: [employer] [place] [employer] Evidence- Based Clinical Practice Guidelines. Chief Complaint Patient presents with Pre-operative Medical Risk Stratification History of Present Illness Carolina Gutierrez is a 56 y.o. female who presents for preoperative medical risk stratification consult at the request of Shante Delarosa DPM prior to LEFT FOOT HARDWARE REMOVAL [facility] OR 05/16/17. Pt had left foot surgery [...] the 100's Diverticulosis DVT (deep venous thrombosis) (HCC) R lower leg Eczema GERD (gastroesophageal reflux disease) Hypothyroidism since age 24 Irritable bowel syndrome PONV (postoperative nausea and vomiting) Varicosities Past Medical History Pertinent Negatives: Diagnosis Date Noted Bleeding disorder (HCC) 05/09/2015 Cancer (HCC) 09/10/2016 Coronary artery disease 05/09/2015 Deep vein thrombosis (HCC) 05/09/2015 History of blood transfusion 05/09/2015 No blood products 05/09/2015 Pulmonary embolism ([facility]) 05/09/2015 Sleep apnea, obstructive 05/09/2015 Past Surgical History: Procedure Laterality Date ARTHRODESIS SUBTALAR Left 05/24/2015 Procedure: NAVICULOCUNEIFORM ARTHRODESIS LEFT; Surgeon: Shante Delarosa DPM; Location: [facility] Main OR; Service: ARTHROPLASTY TOE Left 09/14/2016 Procedure: LEFT 5TH TOE ARTHROPLASTY ; Surgeon: Shante Delarosa DPM; Location: [facility] Main OR; Service: BUNIONECTOMY LAPIDUS Left 09/14/2016 Procedure: LEFT FOOT LAPIDUS ; Surgeon: Shante Delarosa DPM; Location: [facility] Main OR; Service: CHOLECYSTECTOMY HARDWARE REMOVAL FOOT Left 10/28/2015 Procedure: HARDWARE REMOVAL LEFT FOOT; Surgeon: Shante Delarosa DPM; Location: [facility] Main OR; Service: HYSTERECTOMY JOINT REPLACEMENT 2007, 2008 partial knee replacement bilat OSTEOTOMY Left 05/24/2015 Procedure: CHAMPAGNE CALCANEAL OSTEOTOMY LEFT; Surgeon: Shante Delarosa DPM; Location: [facility] Main OR; Service: OSTEOTOMY CALCANEUS POSTERIOR Left 09/14/2016 Procedure: LEFT FOOT CALCANEAL OSTEOTOMY; Surgeon: Shante Delarosa DPM; Location: [facility] Main OR; Service: REMOVAL HARDWARE Left 09/14/2016 Procedure: LEFT FOOT REMOVAL OF HARDWARE; Surgeon: Shante Delarosa DPM; Location: [facility] Main OR; Service: right foot achilles tendon nitin 2012 TENDON REPAIR ACHILLES (OR LENGTHENING) Left 05/24/2015 Procedure: TENDON REPAIR ACHILLES (OR LENGTHENING) LEFT; Surgeon: Shante Delarosa DPM; Location: [facility] Main OR; Service: TENDON REPAIR TIBULUS POSTERIOR / RESECTION GASTRONEMIUS Left 05/24/2015 Procedure: POSTERIOR TIBIAL TENDON DEBRIDEMENT AND REPAIR LEFT; Surgeon: Shante Delarosa DPM; Location: [facility] Main OR; Service: Social History Substance Use [...] a day Yes 1 puff, Inhalation, BID L.ACID/L.CASEI/B.BIF/B.LEONARDO/FOS (PROBIOTIC BLEND ORAL) Take by mouth every [...] mouth every morning Pt takes 2 tablets , , Sun . 75 mcg, Oral, QAM, Pt takes 2 tablets , , Sun oxymetazoline (AFRIN) 0.05 % nasal spray [...] Exam BP 138/81 Pulse 81 Temp 97.9 F (36.6 C ) Ht 4' 11 Wt 89.8 kg (198 [...] 15.5 inches Recent Results (from the past 45525 hours) XR CERVICAL SPINE AP/LAT 05/09/2015 (Final) [...] Degenerative disc disease at C5-6. Workstation ID: [id number] Electrocardiogram-tracing independently reviewed and interpreted-diffuse T-wave inversion clinically anterior possibly suggestive of ischemia.in this encounter Brief Op Note - Shante Delarosa DPM - 05/16/2017 1:35 PM EST Miscellaneous Notes (unrecog nized section and content) Formatting of this note may be different from the original. Brief Post Operative Note Date of Service: 05/16/2017 Clinician: Shante Delarosa DPM OR Staff: Operating Engineer: Latonia Mendez RN Relief Operating Engineer: Karson Starkey RN Scrub Person: Claire Falcon RN Scrub Person Assist: Danya Weinstein RN Anesthesia Staff: Anesthesiologist: Larisa Javier DO VETERINARY MEAT INSPECTOR: Bita Baeza CRNA Surgeon(s):Surgeon(s) and Role: * Shante Delarosa DPM - Primary Pre-Operative Diagnoses: COMPLICATION OF HARDWARE Post-Operative Diagnoses: Post-Op Diagnosis Codes: * Complication internal fixation device such as nail, plate, or sabiha, sequela [T84.9XXS] Procedure(s) performed: Procedure(s): LEFT FOOT HARDWARE REMOVAL Specimen(s) removed: * No specimens in log * Operative findings: see op note Implants: Implant Name Type Inv. Item Serial No. Duck Bill Operator Lot No. LRB No. Used Action plate YUEN MED Left 2 Explanted screws YUEN MED Left 7 Explanted Dressings: Soft dressing Estimated Blood Loss: Minimal Type of Anesthesia used: General Intra and Immediate Post-op Complications: none Shante Delarosa DPM 05/16/2017 1:35 PM CSN: [id number] this encounter Leelee Chester RN - 05/13/2017 9:58 AM EST Nursing Notes (unrecognized section and content) Our goal here at [facility] is to make your time with us as comprehensive and as pleasant for you as possible. In order for that to happen we would ask you to be aware of the following guidelines and information: ? You are to have nothing to eat or drink after midnight the night before your surgery no mints, no gum, no water, no food. ? [facility] will call you the day [...] which case you go directly to the [facility] located on the 4th Floor). ? No [...] off at the front entrance while your animal care worker baldwin the car. Someone must accompany you [...] Saturday 8 am - 3:30 pm at [phone]. in this encounter INFORMATION SOURCE (unrecogn ized section and content) DATE CREATED AUTHOR 12/24/2017 [facility] DATE CREATED AUTHOR AUTHOR'S ORGANIZ ATION 03/01/2021 [facility] DATE CREATED AUTHOR AUTHOR'S ORGANIZ ATION 09/14/2021 [facility] dical Specialist DATE CREATED AUTHOR AUTHOR'S ORGANIZ ATION 12/10/2022 [facility] pital DATE CREATED AUTHOR AUTHOR'S ORGANIZ ATION 02/25/[address] [facility] spital DATE CREATED AUTHOR AUTHOR'S ORGANIZ ATION 05/26/2023 [facility] DATE CREATED AUTHOR AUTHOR'S ORGANIZ ATION 09/28/2023 [facility] DATE CREATED AUTHOR AUTHOR'S ORGANIZ ATION 10/29/2023 [facility] DATE CREATED AUTHOR AUTHOR'S ORGANIZ ATION 12/30/2023 [facility] DATE CREATED AUTHOR AUTHOR'S ORGANIZ ATION 01/05/2024 [facility] DATE CREATED AUTHOR AUTHOR'S ORGANIZ ATION 01/06/2024 [facility] DATE CREATED AUTHOR AUTHOR'S ORGANIZ ATION 01/13/2024 [facility] DATE CREATED AUTHOR AUTHOR'S ORGANIZ ATION 01/14/2024 [facility] DATE CREATED AUTHOR AUTHOR'S ORGANIZ ATION 01/15/2024 [facility] DATE CREATED AUTHOR AUTHOR'S ORGANIZ ATION 01/16/2024 [facility] DATE CREATED AUTHOR AUTHOR'S ORGANIZ ATION 01/19/2024 [facility] DATE CREATED AUTHOR AUTHOR'S ORGANIZ ATION 01/23/2024 [facility] DATE CREATED AUTHOR AUTHOR'S ORGANIZ ATION 01/24/2024 [facility] DATE CREATED AUTHOR AUTHOR'S ORGANIZ ATION 01/25/2024 [facility] DATE CREATED AUTHOR AUTHOR'S ORGANIZ ATION 01/29/2024 [facility] DATE CREATED AUTHOR AUTHOR'S ORGANIZ ATION 02/09/2024 [facility] DATE CREATED AUTHOR AUTHOR'S ORGANIZ ATION 02/28/2024 [facility] DATE CREATED AUTHOR AUTHOR'S ORGANIZ ATION 04/09/2024 [facility] DATE CREATED AUTHOR AUTHOR'S ORGANIZ ATION 05/15/2024 [facility] DATE CREATED AUTHOR AUTHOR'S ORGANIZ ATION 05/25/2024 [facility] DATE CREATED AUTHOR AUTHOR'S ORGANIZ ATION 06/25/2024 [facility] DATE CREATED AUTHOR AUTHOR'S ORGANIZ ATION 06/26/2024 [facility] DATE CREATED AUTHOR AUTHOR'S ORGANIZ ATION 02/03/2025 [facility] dical [facility] DATE CREATED AUTHOR AUTHOR'S ORGANIZ ATION 02/15/2025 [facility] DATE CREATED AUTHOR AUTHOR'S ORGANIZ ATION 02/22/2025 [facility] DATE CREATED AUTHOR AUTHOR'S ORGANIZ ATION 02/23/2025 [facility] DATE CREATED AUTHOR AUTHOR'S ORGANIZ ATION 02/25/2025 [facility] DATE CREATED AUTHOR AUTHOR'S ORGANIZ ATION 03/15/2025 [facility] Source Comments (unrecognize d section and content) In the event this informatio n is protected by the Federal Confidentiality of Alcohol and Drug Abuse Patient Records regulations: The Federal rules restrict any use of the information to criminally investigate or prosecute any alcohol or drug abuse patient.[facility] CenterIn the event this information is protected by the Federal Confidentiality of Alcohol and Drug Abuse Patient Records regulations: The Federal rules restrict any use of the information to criminally investigate or prosecute any alcohol or drug abuse patient.[facility] CenterIn the event this information is protected by the Federal Confidentiality of Alcohol and Drug Abuse Patient Records regulations: The Federal rules restrict any use of the information to criminally investigate or prosecute any alcohol or drug abuse patient.[facility] CenterIn the event this information is protected by the Federal Confidentiality of Alcohol and Drug Abuse Patient Records regulations: The Federal rules restrict any use of the information to criminally investigate or prosecute any alcohol or drug abuse patient.[facility] CenterIn the event this information is protected by the Federal Confidentiality of Alcohol and Drug Abuse Patient Records regulations: The Federal rules restrict any use of the information to criminally investigate or prosecute any alcohol or drug abuse patient.[facility] CenterIn the event this information is protected by the Federal Confidentiality of Alcohol and Drug Abuse Patient Records regulations: The Federal rules restrict any use of the information to criminally investigate or prosecute any alcohol or drug abuse patient.[facility] CenterIn the event this information is protected by the Federal Confidentiality of Alcohol and Drug Abuse Patient Records regulations: The Federal rules restrict any use of the information to criminally investigate or prosecute any alcohol or drug abuse patient.[facility] CenterIn the event this information is protected by the Federal Confidentiality of Alcohol and Drug Abuse Patient Records regulations: The Federal rules restrict any use of the information to criminally investigate or prosecute any alcohol or drug abuse patient.[facility] CenterIn the event this information is protected by the Federal Confidentiality of Alcohol and Drug Abuse Patient Records regulations: The Federal rules restrict any use of the information to criminally investigate or prosecute any alcohol or drug abuse patient.[facility] CenterIn the event this information is protected by the Federal Confidentiality of Alcohol and Drug Abuse Patient Records regulations: The Federal rules restrict any use of the information to criminally investigate or prosecute any alcohol or drug abuse patient.[facility] CenterIn the event this information is protected by the Federal Confidentiality of Alcohol and Drug Abuse Patient Records regulations: The Federal rules restrict any use of the information to criminally investigate or prosecute any alcohol or drug abuse patient.[facility] CenterIn the event this information is protected by the Federal Confidentiality of Alcohol and Drug Abuse Patient Records regulations: The Federal rules restrict any use of the information to criminally investigate or prosecute any alcohol or drug abuse patient.[facility] CenterIn the event this information is protected by the Federal Confidentiality of Alcohol and Drug Abuse Patient Records regulations: The Federal rules restrict any use of the information to criminally investigate or prosecute any alcohol or drug abuse patient.[facility] CenterIn the event this information is protected by the Federal Confidentiality of Alcohol and Drug Abuse Patient Records regulations: The Federal rules restrict any use of the information to criminally investigate or prosecute any alcohol or drug abuse patient.[facility] CenterIn the event this information is protected by the Federal Confidentiality of Alcohol and Drug Abuse Patient Records regulations: The Federal rules restrict any use of the information to criminally investigate or prosecute any alcohol or drug abuse patient.[facility] CenterIn the event this information is protected by the Federal Confidentiality of Alcohol and Drug Abuse Patient Records regulations: The Federal rules restrict any use of the information to criminally investigate or prosecute any alcohol or drug abuse patient.[facility] CenterIn the event this information is protected by the Federal Confidentiality of Alcohol and Drug Abuse Patient Records regulations: The Federal rules restrict any use of the information to criminally investigate or prosecute any alcohol or drug abuse patient.[facility] CenterIn the event this information is protected by the Federal Confidentiality of Alcohol and Drug Abuse Patient Records regulations: The Federal rules restrict any use of the information to criminally investigate or prosecute any alcohol or drug abuse patient.[facility] CenterIn the event this information is protected by the Federal Confidentiality of Alcohol and Drug Abuse Patient Records regulations: The Federal rules restrict any use of the information to criminally investigate or prosecute any alcohol or drug abuse patient.[facility] CenterIn the event this information is protected by the Federal Confidentiality of Alcohol and Drug Abuse Patient Records regulations: The Federal rules restrict any use of the information to criminally investigate or prosecute any alcohol or drug abuse patient.[facility] CenterIn the event this information is protected by the Federal Confidentiality of Alcohol and Drug Abuse Patient Records regulations: The Federal rules restrict any use of the information to criminally investigate or prosecute any alcohol or drug abuse patient.[facility] CenterIn the event this information is protected by the Federal Confidentiality of Alcohol and Drug Abuse Patient Records regulations: The Federal rules restrict any use of the information to criminally investigate or prosecute any alcohol or drug abuse patient.[facility] CenterIn the event this information is protected by the Federal Confidentiality of Alcohol and Drug Abuse Patient Records regulations: The Federal rules restrict any use of the information to criminally investigate or prosecute any alcohol or drug abuse patient.[facility] CenterIn the event this information is protected by the Federal Confidentiality of Alcohol and Drug Abuse Patient Records regulations: The Federal rules restrict any use of the information to criminally investigate or prosecute any alcohol or drug abuse patient.[facility] CenterIn the event this information is protected by the Federal Confidentiality of Alcohol and Drug Abuse Patient Records regulations: The Federal rules restrict any use of the information to criminally investigate or prosecute any alcohol or drug abuse patient.[facility] CenterIn the event this information is protected by the Federal Confidentiality of Alcohol and Drug Abuse Patient Records regulations: The Federal rules restrict any use of the information to criminally investigate or prosecute any alcohol or drug abuse patient.[facility] CenterIn the event this information is protected by the Federal Confidentiality of Alcohol and Drug Abuse Patient Records regulations: The Federal rules restrict any use of the information to criminally investigate or prosecute any alcohol or drug abuse patient.[facility] CenterIn the event this information is protected by the Federal Confidentiality of Alcohol and Drug Abuse Patient Records regulations: The Federal rules restrict any use of the information to criminally investigate or prosecute any alcohol or drug abuse patient.[facility] CenterIn the event this information is protected by the Federal Confidentiality of Alcohol and Drug Abuse Patient Records regulations: The Federal rules restrict any use of the information to criminally investigate or prosecute any alcohol or drug abuse patient.[facility] CenterIn the event this information is protected by the Federal Confidentiality of Alcohol and Drug Abuse Patient Records regulations: The Federal rules restrict any use of the information to criminally investigate or prosecute any alcohol or drug abuse patient.[facility] CenterIn the event this information is protected by the Federal Confidentiality of Alcohol and Drug Abuse Patient Records regulations: The Federal rules restrict any use of the information to criminally investigate or prosecute any alcohol or drug abuse patient.[facility] CenterIn the event this information is protected by the Federal Confidentiality of Alcohol and Drug Abuse Patient Records regulations: The Federal rules restrict any use of the information to criminally investigate or prosecute any alcohol or drug abuse patient.[facility] CenterIn the event this information is protected by the Federal Confidentiality of Alcohol and Drug Abuse Patient Records regulations: The Federal rules restrict any use of the information to criminally investigate or prosecute any alcohol or drug abuse patient.[facility] CenterIn the event this information is protected by the Federal Confidentiality of Alcohol and Drug Abuse Patient Records regulations: The Federal rules restrict any use of the information to criminally investigate or prosecute any alcohol or drug abuse patient.[facility] CenterIn the event this information is protected by the Federal Confidentiality of Alcohol and Drug Abuse Patient Records regulations: The Federal rules restrict any use of the information to criminally investigate or prosecute any alcohol or drug abuse patient.[facility] CenterIn the event this information is protected by the Federal Confidentiality of Alcohol and Drug Abuse Patient Records regulations: The Federal rules restrict any use of the information to criminally investigate or prosecute any alcohol or drug abuse patient.[facility] CenterIn the event this information is protected by the Federal Confidentiality of Alcohol and Drug Abuse Patient Records regulations: The Federal rules restrict any use of the information to criminally investigate or prosecute any alcohol or drug abuse patient.[facility] CenterIn the event this information is protected by the Federal Confidentiality of Alcohol and Drug Abuse Patient Records regulations: The Federal rules restrict any use of the information to criminally investigate or prosecute any alcohol or drug abuse patient.[facility] CenterIn the event this information is protected by the Federal Confidentiality of Alcohol and Drug Abuse Patient Records regulations: The Federal rules restrict any use of the information to criminally investigate or prosecute any alcohol or drug abuse patient.[facility] CenterIn the event this information is protected by the Federal Confidentiality of Alcohol and Drug Abuse Patient Records regulations: The Federal rules restrict any use of the information to criminally investigate or prosecute any alcohol or drug abuse patient.[facility] CenterIn the event this information is protected by the Federal Confidentiality of Alcohol and Drug Abuse Patient Records regulations: The Federal rules restrict any use of the information to criminally investigate or prosecute any alcohol or drug abuse patient.[facility] CenterIn the event this information is protected by the Federal Confidentiality of Alcohol and Drug Abuse Patient Records regulations: The Federal rules restrict any use of the information to criminally investigate or prosecute any alcohol or drug abuse patient.[facility] CenterIn the event this information is protected by the Federal Confidentiality of Alcohol and Drug Abuse Patient Records regulations: The Federal rules restrict any use of the information to criminally investigate or prosecute any alcohol or drug abuse patient.[facility] CenterIn the event this information is protected by the Federal Confidentiality of Alcohol and Drug Abuse Patient Records regulations: The Federal rules restrict any use of the information to criminally investigate or prosecute any alcohol or drug abuse patient.[facility] CenterIn the event this information is protected by the Federal Confidentiality of Alcohol and Drug Abuse Patient Records regulations: The Federal rules restrict any use of the information to criminally investigate or prosecute any alcohol or drug abuse patient.[facility] CenterIn the event this information is protected by the Federal Confidentiality of Alcohol and Drug Abuse Patient Records regulations: The Federal rules restrict any use of the information to criminally investigate or prosecute any alcohol or drug abuse patient.[facility] CenterIn the event this information is protected by the Federal Confidentiality of Alcohol and Drug Abuse Patient Records regulations: The Federal rules restrict any use of the information to criminally investigate or prosecute any alcohol or drug abuse patient.[facility] CenterIn the event this information is protected by the Federal Confidentiality of Alcohol and Drug Abuse Patient Records regulations: The Federal rules restrict any use of the information to criminally investigate or prosecute any alcohol or drug abuse patient.[facility] CenterIn the event this information is protected by the Federal Confidentiality of Alcohol and Drug Abuse Patient Records regulations: The Federal rules restrict any use of the information to criminally investigate or prosecute any alcohol or drug abuse patient.[facility] CenterIn the event this information is protected by the Federal Confidentiality of Alcohol and Drug Abuse Patient Records regulations: The Federal rules restrict any use of the information to criminally investigate or prosecute any alcohol or drug abuse patient.[facility] CenterIn the event this information is protected by the Federal Confidentiality of Alcohol and Drug Abuse Patient Records regulations: The Federal rules restrict any use of the information to criminally investigate or prosecute any alcohol or drug abuse patient.[facility] CenterIn the event this information is protected by the Federal Confidentiality of Alcohol and Drug Abuse Patient Records regulations: The Federal rules restrict any use of the information to criminally investigate or prosecute any alcohol or drug abuse patient.[facility] CenterIn the event this information is protected by the Federal Confidentiality of Alcohol and Drug Abuse Patient Records regulations: The Federal rules restrict any use of the information to criminally investigate or prosecute any alcohol or drug abuse patient.[facility] CenterIn the event this information is protected by the Federal Confidentiality of Alcohol and Drug Abuse Patient Records regulations: The Federal rules restrict any use of the information to criminally investigate or prosecute any alcohol or drug abuse patient.[facility] CenterIn the event this information is protected by the Federal Confidentiality of Alcohol and Drug Abuse Patient Records regulations: The Federal rules restrict any use of the information to criminally investigate or prosecute any alcohol or drug abuse patient.[facility] CenterIn the event this information is protected by the Federal Confidentiality of Alcohol and Drug Abuse Patient Records regulations: The Federal rules restrict any use of the information to criminally investigate or prosecute any alcohol or drug abuse patient.[facility] CenterIn the event this information is protected by the Federal Confidentiality of Alcohol and Drug Abuse Patient Records regulations: The Federal rules restrict any use of the information to criminally investigate or prosecute any alcohol or drug abuse patient.[facility] CenterIn the event this information is protected by the Federal Confidentiality of Alcohol and Drug Abuse Patient Records regulations: The Federal rules restrict any use of the information to criminally investigate or prosecute any alcohol or drug abuse patient.[facility] CenterIn the event this information is protected by the Federal Confidentiality of Alcohol and Drug Abuse Patient Records regulations: The Federal rules restrict any use of the information to criminally investigate or prosecute any alcohol or drug abuse patient.[facility] CenterIn the event this information is protected by the Federal Confidentiality of Alcohol and Drug Abuse Patient Records regulations: The Federal rules restrict any use of the information to criminally investigate or prosecute any alcohol or drug abuse patient.[facility] CenterIn the event this information is protected by the Federal Confidentiality of Alcohol and Drug Abuse Patient Records regulations: The Federal rules restrict any use of the information to criminally investigate or prosecute any alcohol or drug abuse patient.[facility] CenterIn the event this information is protected by the Federal Confidentiality of Alcohol and Drug Abuse Patient Records regulations: The Federal rules restrict any use of the information to criminally investigate or prosecute any alcohol or drug abuse patient.[facility] CenterIn the event this information is protected by the Federal Confidentiality of Alcohol and Drug Abuse Patient Records regulations: The Federal rules restrict any use of the information to criminally investigate or prosecute any alcohol or drug abuse patient.[facility] CenterIn the event this information is protected by the Federal Confidentiality of Alcohol and Drug Abuse Patient Records regulations: The Federal rules restrict any use of the information to criminally investigate or prosecute any alcohol or drug abuse patient.[facility] CenterIn the event this information is protected by the Federal Confidentiality of Alcohol and Drug Abuse Patient Records regulations: The Federal rules restrict any use of the information to criminally investigate or prosecute any alcohol or drug abuse patient.[facility] CenterIn the event this information is protected by the Federal Confidentiality of Alcohol and Drug Abuse Patient Records regulations: The Federal rules restrict any use of the information to criminally investigate or prosecute any alcohol or drug abuse patient.[facility] CenterIn the event this information is protected by the Federal Confidentiality of Alcohol and Drug Abuse Patient Records regulations: The Federal rules restrict any use of the information to criminally investigate or prosecute any alcohol or drug abuse patient.[facility] Reason for Visit (unrecogniz ed section and content) Reason Onset Date Comments Patient Question 11/24/2015 Results 11/24/2015 Reason Comments Pain Specialty Diagnoses / Procedures Referred By Brittany t Referred To Contact Diagnoses Hx of total knee arthroplasty, right Procedures XR KNEE RIGHT 3 VIEWS Medardo Vuogn, [employer] [address] [place] [address] Referral ID Status Reason Start Date Expiration Date V isiNewser Requested Visits Authorized [id number] New Request 02/09/2022 03/06/2023 1 1 Reason Comments Post Op Visit Reason Comments Refill Request Reason Comments Results Reason Comments Follow-up Reason Comments Medication Authorization [employer] Insurance Authorization Prior Auth Delay ed: Patient has an authorization for Prolia on file with an outside facility and provider 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 Patient states she has no pain. However,she does have weakness when going up steps. Reason Comments [employer] prior auth renewal Reason Comments YAG Blurred Vision Reason Comments Arthritis Reason Comments Appointment Orders Reason Comments Swelling New Reason Comments Radio Gen A21 Specialty Diagnoses / Procedures Referred By Contac t Referred To Contact XR IMAGING Diagnoses Left shoulder pain, unspecified chronicity Procedures XR SHOULDER GENERAL 3V OR MORE AP/TRUE AP/OTHER LEFT RADEX SHOULDER COMPLETE MINIMUM 2 VIEWS John Holly MD [address] [place] [phone] [place] [address] Referral ID Status Reason Start Date Expiration Date V isits Requested Visits Authorized [id number] Closed Auto-Generate d Referral 10/09/2023 11/07/2024 1 1 Reason Comments Pain Swelling Reason Comments Cobbler Sole - Other Reason Comments Results DEXA scan Reason Comments Pre-Op Exam Reason Comments RINVOQ recommendations for upcoming surg luis Reason Comments Patient Update Reason Comments Medication Problem Reason Comments Medication Authorization [facility] ER Reason Comments Anesthesia Consult Reason Comments Peer To Peer Consultation Reason Comments Returning Patient's Call Reason Comments Post Op Reason Comments Radio Gen RMP Specialty Diagnoses / Procedures Referred By Contac t Referred To Contact XR IMAGING Diagnoses S/P shoulder surgery Loose orthopedic implant, subsequent encounter Procedures XR SHOULDER GENERAL 3V OR MORE AP/TRUE AP/OTHER LEFT RADEX SHOULDER COMPLETE MINIMUM 2 VIEWS Steve Gambino PA [address] [place] [address] X[facility] Imaging [place] [address] Referral ID Status Reason Start Date Expiration Date V isits Requested Visits Authorized [id number] Closed Auto-Generate d Referral 04/20/2024 05/20/2025 1 1 Reason Comments Post Op Reason Comments Research Phone Interview IRB# [phone] [facility] Reason Comments Pain Fluid leakage from w ound Established Patient Fluid leakage from w ound Specialty Diagnoses / Procedures Referred By Contac t Referred To Contact XR IMAGING Diagnoses S/P shoulder surgery Procedures XR SHOULDER GENERAL 3V OR MORE AP/TRUE AP/OTHER LEFT RADEX SHOULDER COMPLETE MINIMUM 2 VIEWS John Holly MD [address] [place] [phone] X[facility] Imaging [facility] Referral ID Status Reason Start Date Expiration Date V isits Requested Visits Authorized [id number] Closed Auto-Generate d Referral 05/13/2024 06/12/2025 1 1 Reason Comments Follow-up Reason Comments New Reason Comments CoPat Agency Reason Comments Outside Lab Results Reason Comments CoPat Start Reason Comments CoPat Management Labs Reason Comments CoPat Management Lab review, vancomyc in Specialty Diagnoses / Procedures Referred By Contac t Referred To Contact CT IMAGING Diagnoses Encounter for observation for other suspected diseases and conditions ruled out Procedures CT HUMERUS WO IVCON LEFT CT UPPER EXTREMITY W/O CONTRAST MATERIAL John Holly MD [address] [place] [address] Ct Imaging [place] [address] Referral ID Status Reason Start Date Expiration Date V isits Requested Visits Authorized [id number] Closed Auto-Generate d Referral 05/18/2024 06/17/2025 1 1 Reason Comments Post Op Reason Comments Pain Reason Comments Patient Education Reason Onset Date Comments surgery 04/01/2023 Reason Comments Follow-up No surgeries; one mo [facility] hospital stay. December 2023 for pneumonia, colitis, cellulitis and shingles. Did not have blood work done. Reason Comments Follow-up Pt states she had 2 teeth pulled last week. No hospital stays. 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 Pt had pneumonia and flu this year so far. Reason Comments Med Refill Reason Comments Follow-up No surgeries; no hos pital stays. Reason Comments Follow Up No questions or conc erns. Care Teams (unrecognized sec tion and content) Registered Representative Relationship Specialty Start Date End Date Aline Guerrero MD [address], [place] [phone] PCP - General Family Medicine 01/11/22 Registered Representative Relationship Specialty Start Date End Date Aline Guerrero MD [address], [place] [phone] PCP - General Family Medicine 01/11/22 Registered Representative Relationship Specialty Start Date End Date Aline Guerrero MD [address] [place] [address] PCP - General Family Medicine 01/11/22 Registered Representative Relationship Specialty Start Date End Date Aline Guerrero MD [address] [place] [phone] PCP - General Family Medicine 01/11/22 Team Status: Inactive Member Role Status Dates Aline Guerrero MD Primary Care Provider Active Consuelo Rosales APRN Attending Provider Active Team Status: Active Member Role Status Dates Aline Guerrero MD Primary Care Provider Active Team Status: Inactive Member Role Status Dates Aline Guerrero MD Primary Care Provider Active RADHA Bowers Attending Provider Active Registered Representative Relationship Specialty Start Date End Date Aline Guerrero MD [address] [place] [phone] PCP - General 10/11/00 Registered Representative Relationship Specialty Start Date End Date Aline Guerrero MD [address] [place] [phone] PCP - General 10/11/00 Registered Representative Relationship Specialty Start Date End Date Aline Guerrero MD [address] [place] [phone] PCP - General Family Medicine 01/11/22 Registered Representative Relationship Specialty Start Date End Date Aline Guerrero MD [address] [place] [address] PCP - General 10/11/00 Registered Representative Relationship Specialty Start Date End Date Aline Guerrero MD [address] [place] [address] PCP - General 10/11/00 Registered Representative Relationship Specialty Start Date End Date Aline Guerrero MD [address] [place] [address] PCP - General Family Medicine 01/11/22 Registered Representative Relationship Specialty Start Date End Date Aline Guerrero MD [address] [place] [address] PCP - General Family Medicine 01/11/22 Registered Representative Relationship Specialty Start Date End Date Aline Guerrero MD [address] [place] [address] PCP - General 10/11/00 Registered Representative Relationship Specialty Start Date End Date Aline Guerrero MD [address] [place] [address] PCP - General 10/11/00 Registered Representative Relationship Specialty Start Date End Date Silvestre Benavides MD [address] [place] [address] PCP - General Family Medicine 03/05/23 Team Status: Inactive Member Role Status Dates Naty Luke APRN Attending Provider Active Start: July 24, 2023 End: July 24, 2023 Team Status: Inactive Member Role Status Dates Aline Guerrero MD Primary Care Provider Active S tart: July 24, 2023 End: July 24, 2023 Naty Luke APRN Attending Provider Active Start: July 24, 2023 End: July 24, 2023 Registered Representative Relationship Specialty Start Date End Date Aline Guerrero MD [address] [place] [address] PCP - General 10/11/00 Registered Representative Relationship Specialty Start Date End Date Aline Guerrero MD [address] [place], [facility] PCP - General 10/11/00 Registered Representative Relationship Specialty Start Date End Date Aline Guerrero MD [address] [place] [address] PCP - General 10/11/00 Louis Cortez DO [address] [place] [phone] Orthopedics 10/02/23 Registered Representative Relationship Specialty Start Date End Date Aline Guerrero MD [address] [place] [address] PCP - General 10/11/00 Louis Cortez DO [address] [place] [address] Orthopedics 10/02/23 Registered Representative Relationship Specialty Start Date End Date Aline Guerrero MD [address] [place] [address] PCP - General 10/11/00 Louis Cortez DO [address] [place] [address] Orthopedics 10/02/23 Registered Representative Relationship Specialty Start Date End Date Aline Guerrero MD [address] [place] [address] PCP - General 10/11/00 Louis Cortez DO [address] [place] [address] Orthopedics 10/02/23 Registered Representative Relationship Specialty Start Date End Date Aline Guerrero MD [address] [place] [address] PCP - General 10/11/00 Louis Cortez DO [address] [place] [address] Orthopedics 10/02/23 Registered Representative Relationship Specialty Start Date End Date Aline Guerrero MD [address] [place] [address] PCP - General 10/11/00 Louis Cortez DO [address] [place] [address] Orthopedics 10/02/23 Registered Representative Relationship Specialty Start Date End Date Aline Guerrero MD [address] [place] [address] PCP - General 10/11/00 Louis Cortez DO [address] [place] [address] Orthopedics 10/02/23 Team Status: Active Member Role Status Dates Berry Beth NP-Demetrio Primary Care Provider Active Team Status: Inactive Member Role Status Dates Naty Luke APRN Attending Provider Active Start: November 07, 2023 End: November 07, 2023 Berry Beth , DISPATCHER CHIE[employer]-C Primary Care Provider Active Start: November 07, 2023 End: November 07, 2023 Registered Representative Relationship Specialty Start Date End Date Aline Guerrero MD [address] [place] [address] PCP - General 10/11/00 Louis Cortez DO [address] [place] [address] Orthopedics 10/02/23 Registered Representative Relationship Specialty Start Date End Date Aline Guerrero MD [address] [place] [address] PCP - General 10/11/00 Louis Cortez DO [address] [place] [address] Orthopedics 10/02/23 Registered Representative Relationship Specialty Start Date End Date Berry Beth APRN.DOG LICENSER [address] [place] [address] PCP - General 12/23/23 Louis Cortez DO [address] [place] [address] Orthopedics 10/02/23 Registered Representative Relationship Specialty Start Date End Date Berry Beth STERILE PRODUCTS PROCESSOR.DOG LICENSER [address] [place] [address] PCP - General 12/23/23 Louis Cortez, [address] [place] [address] Orthopedics 10/02/23 Registered Representative Relationship Specialty Start Date End Date Berry Beth STERILE PRODUCTS PROCESSOR.DOG LICENSER [address] [place] [address] PCP - General 12/23/23 Louis Cortez, [address] [place] [phone] Orthopedics 10/02/23 Registered Representative Relationship Specialty Start Date End Date Berry Beth, STERILE PRODUCTS PROCESSOR.DOG LICENSER [address] [place] [address] PCP - General 12/23/23 Louis Cortez, [address] [place] [address] Orthopedics 10/02/23 Registered Representative Relationship Specialty Start Date End Date Berry Beth, STERILE PRODUCTS PROCESSOR.DOG LICENSER [address] [place] [address] [phone] PCP - General 12/23/23 Louis Cortez, [address] [place] [address] Orthopedics 10/02/23 Registered Representative Relationship Specialty Start Date End Date Berry Beth, STERILE PRODUCTS PROCESSOR.DOG LICENSER [address] [place] [address] PCP - General 12/23/23 Louis Cortez, [address] [place] [address] Orthopedics 10/02/23 Registered Representative Relationship Specialty Start Date End Date Berry Beth, STERILE PRODUCTS PROCESSOR.DOG LICENSER [address] [place] [address] PCP - General 12/23/23 Louis Cortez, [address] [place] [address] Orthopedics 10/02/23 Registered Representative Relationship Specialty Start Date End Date Berry Beth, STERILE PRODUCTS PROCESSOR.DOG LICENSER [address] [place] [address] PCP - General 12/23/23 Louis Cortez, [address] [place] [address] Orthopedics 10/02/23 Registered Representative Relationship Specialty Start Date End Date Berry Beth, STERILE PRODUCTS PROCESSOR.DOG LICENSER [address] [place] [address] PCP - General 12/23/23 Louis Cortez, DO [address] [place] [address] Orthopedics 10/02/23 Registered Representative Relationship Specialty Start Date End Date Berry Beth, STERILE PRODUCTS PROCESSOR.DOG LICENSER [address] [place] [address] PCP - General 12/23/23 Louis Cortez DO [address] [place] [address] Orthopedics 10/02/23 Registered Representative Relationship Specialty Start Date End Date Berry Beth, STERILE PRODUCTS PROCESSOR.DOG LICENSER [address] [place] [address] PCP - General 12/23/23 Louis Cortez DO [address] [place] [address] Orthopedics 10/02/23 Registered Representative Relationship Specialty Start Date End Date Berry Beth, STERILE PRODUCTS PROCESSOR.DOG LICENSER [address] [place] [address] PCP - General 12/23/23 Louis Cortez DO [address] [place] [address] Orthopedics 10/02/23 Registered Representative Relationship Specialty Start Date End Date Berry Beth, STERILE PRODUCTS PROCESSOR.DOG LICENSER [address] [place] [address] PCP - General 12/23/23 Louis Cortez DO [address] [place] [address] Orthopedics 10/02/23 Registered Representative Relationship Specialty Start Date End Date Berry Beth, STERILE PRODUCTS PROCESSOR.DOG LICENSER [address] [place] [address]453 PCP - General 12/23/23 Louis Cortez DO [address] [place] [address] Orthopedics 10/02/23 Registered Representative Relationship Specialty Start Date End Date Berry Beth, STERILE PRODUCTS PROCESSOR.DOG LICENSER [address] [place] [address] [phone] PCP - General 12/23/23 Louis Cortez DO [address] [place] [phone] Orthopedics 10/02/23 Registered Representative Relationship Specialty Start Date End Date Berry Beth MD [address] [place], [place] [phone] Referring Physician Family Medicine 03/13/24 Registered Representative Relationship Specialty Start Date End Date Berry Beth MD [address] [place] [address] Referring Physician Family Medicine 03/13/24 Registered Representative Relationship Specialty Start Date End Date Berry Beth, STERILE PRODUCTS PROCESSOR.DOG LICENSER [address] [place], [place] [phone] PCP - General 12/23/23 Louis Cortez DO [address] [place] [address] Orthopedics 10/02/23 Registered Representative Relationship Specialty Start Date End Date Berry Beth, STERILE PRODUCTS PROCESSOR.DOG LICENSER [address] [place] [address] [phone] PCP - General 12/23/23 Louis Cortez, DO [address] [place] [address] Orthopedics 10/02/23 Registered Representative Relationship Specialty Start Date End Date Berry Beth, STERILE PRODUCTS PROCESSOR.DOG LICENSER [address] [place] [address] [phone] PCP - General 12/23/23 Louis Cortez DO [address] [place] [address] Orthopedics 10/02/23 Kellie Watson MD [address] [place] [address] Referring Dermatology 05/14/24 Registered Representative Relationship Specialty Start Date End Date Berry Beth, STERILE PRODUCTS PROCESSOR.DOG LICENSER [address] [place] [address]50 PCP - General 12/23/23 Louis Cortez DO [address] [place] [address] Orthopedics 10/02/23 Kellie Watson MD [address] [place] [address] Referring Dermatology 05/14/24 Registered Representative Relationship Specialty Start Date End Date Berry Beth MD [address] [place] [address] Referring Physician Family Medicine 03/13/24 Registered Representative Relationship Specialty Start Date End Date Berry Beth MD [address] [place] [address] Referring Physician Family Medicine 03/13/24 Registered Representative Relationship Specialty Start Date End Date Berry Beth, STERILE PRODUCTS PROCESSOR.DOG LICENSER [address] [place] [address]14 PCP - General 12/23/23 Louis Cortez DO [address] [place] [address] Orthopedics 10/02/23 Kellie Watson MD [address] [place] [address] Referring Dermatology 05/14/24 Registered Representative Relationship Specialty Start Date End Date Berry Beth MD [address] [place] [address] Referring Physician Family Medicine 03/13/24 Registered Representative Relationship Specialty Start Date End Date Berry Beth, STERILE PRODUCTS PROCESSOR.DOG LICENSER [address] [place] [address]11 PCP - General 12/23/23 Louis Cortez DO [address] [place] [address] Orthopedics 10/02/23 Kellie Watson MD [address] [facility] [address] [place] [address] Referring Dermatology 05/14/24 Registered Representative Relationship Specialty Start Date End Date Berry Beth, STERILE PRODUCTS PROCESSOR.DOG LICENSER [address] [place] [address] PCP - General 12/23/23 Louis Cortez, DO [address] [place] [address] Orthopedics 10/02/23 Kellie Watson MD [address] [place] [address] Referring Dermatology 05/14/24 Registered Representative Relationship Specialty Start Date End Date Berry Beth, STERILE PRODUCTS PROCESSOR.DOG LICENSER [address] [place] [address] PCP - General 12/23/23 Louis Cortez DO [address] [place] [address] Orthopedics 10/02/23 Kellie Watson MD [address] [place] [address] Referring Dermatology 05/14/24 Registered Representative Relationship Specialty Start Date End Date Berry Beth, STERILE PRODUCTS PROCESSOR.DOG LICENSER [address] [place] [address]8728 PCP - General 12/23/23 Louis Cortez DO [address] [place] [address] Orthopedics 10/02/23 Kellie Watson MD [address] [place] [address] Referring Dermatology 05/14/24 Registered Representative Relationship Specialty Start Date End Date Kirit, Berry L, STERILE PRODUCTS PROCESSOR.DOG LICENSER [address] [place] [address] PCP - General 12/23/23 Louis Cortez DO [address] [place] [address] Orthopedics 10/02/23 Kellie Watson MD [address] [facility] [address] [place] [address] Referring Dermatology 05/14/24 Registered Representative Relationship Specialty Start Date End Date Berry Beth MD [address] [place] [address] Referring Physician Family Medicine 03/13/24 Registered Representative Relationship Specialty Start Date End Date Berry Beth, STERILE PRODUCTS PROCESSOR.DOG LICENSER [address] [place] [address] PCP - General 12/23/23 Louis Cortez DO [address] [place] [address] Orthopedics 10/02/23 Kellie Watson MD [address] [address] Referring Dermatology 05/14/24 Registered Representative Relationship Specialty Start Date End Date Santino Moran MD [address] [place] [address] PCP - General Family Medicine 06/15/24 Louis Cortez DO [address] [place] [address] Orthopedics 10/02/23 Kellie Watson MD [address] [place] [address] Referring Dermatology 05/14/24 Registered Representative Relationship Specialty Start Date End Date Santino Moran MD [address] [place] [address] PCP - General Family Medicine 06/15/24 Louis Cortez DO [address] [place] [address] Orthopedics 10/02/23 Kellie Watson MD [address] [facility] [address] [place] [address] Referring Dermatology 05/14/24 Registered Representative Relationship Specialty Start Date End Date Silvestre Benavides MD PCP - General Family Medicine 03/05/23 03/12/24 Berry Beth MD [address] [place] [address] Referring Physician Family Medicine 03/13/24 Registered Representative Relationship Specialty Start Date End Date Silvestre Benavides MD PCP - General Family Medicine 03/05/23 Registered Representative Relationship Specialty Start Date End Date Silvestre Benavides MD PCP - General Family Medicine 03/05/23 Registered Representative Relationship Specialty Start Date End Date Silvestre Benavides MD PCP - General Family Medicine 03/05/23 03/12/24 Berry Beth MD [address] [place] [address] [phone] Referring Physician Family Medicine 03/13/24 Registered Representative Relationship Specialty Start Date End Date Berry Beth MD [address] [place], [place] [phone] Referring Physician Family Medicine 03/13/24 Registered Representative Relationship Specialty Start Date End Date Santino Moran MD [address] [place] [address] PCP - General Family Medicine 06/15/24 Louis Cortez DO [address] [place] [phone] Orthopedics 10/02/23 Kellie Watson MD [address] [place] [address] Referring Dermatology 05/14/24 Registered Representative Relationship Specialty Start Date End Date Santino Moran MD [address] [place] [address] PCP - General Family Medicine 06/15/24 Louis Cortez DO [address] [place] [address] Orthopedics 10/02/23 Kellie Watson MD [address] [place] [address] Referring Dermatology 05/14/24 Registered Representative Relationship Specialty Start Date End Date Santino Moran MD [address] [place] [address] PCP - General Family Medicine 06/15/24 Louis Cortez DO [address] [place] [address] Orthopedics 10/02/23 Kellie Watson MD [address] [place] [address] Referring Dermatology 05/14/24 Registered Representative Relationship Specialty Start Date End Date Santino Moran MD [address] [place] [address] PCP - General Family Medicine 06/15/24 Louis Cortez DO [address] [place] [address] Orthopedics 10/02/23 Kellie Watson MD [address] [place] [address] Referring Dermatology 05/14/24 Registered Representative Relationship Specialty Start Date End Date Santino Moran MD [address] [place] [address] PCP - General Family Medicine 06/15/24 Louis Cortez DO [address] [place] [address] Orthopedics 10/02/23 Kellie Watson MD [address] [place] [address] Referring Dermatology 05/14/24 Registered Representative Relationship Specialty Start Date End Date Santino Moran MD [address] [place] [address] PCP - General Family Medicine 06/15/24 Louis Cortez DO [address] [place] [address] Orthopedics 10/02/23 Kellie Watson MD [address] [place] [address] Referring Dermatology 05/14/24 Registered Representative Relationship Specialty Start Date End Date Santino Moran MD [address] [place] [address] PCP - General Family Medicine 06/15/24 Louis Cortez DO [address] [place] [address] Orthopedics 10/02/23 Kellie Watson MD [address] [place] [address] Referring Dermatology 05/14/24 Registered Representative Relationship Specialty Start Date End Date Berry Beth MD [address] [place], [place] [phone] Referring Physician Family Medicine 03/13/24 Registered Representative Relationship Specialty Start Date End Date Berry Beth MD [address] [place] [address]87 Referring Physician Family Medicine 03/13/24 Team Status: Inactive Member Role Status Dates Ze Francois MD Attending Provider Active Start: September 16, 2024 End: September 16, 2024 Team Status: Inactive Member Role Status Dates Ze Francois MD Attending Provider Active Start: October 28, 2024 End: October 28, 2024 Registered Representative Relationship Specialty Start Date End Date Berry Beth MD [address] [place] [address] Referring Physician Family Medicine 03/13/24 Team Status: Active Member Role Status Dates Santino Moran MD Primary Care Provider Active Team Status: Inactive Member Role Status Dates Siomara Moreland APRN Attending Provider Active Start: November 20, 2024 End: November 20, 2024 Santino Moran MD Primary Care Provider Active Start: November 20, 2024 End: November 20, 2024 Team Status: Active Member Role Status Dates Santino Moran MD Primary Care Provider Active Start: November 20, 2024 Siomara Moreland APRN Attending Provider Active Start: November 20, 2024 Team Status: Inactive Member Role Status Dates Santino Moran MD Primary Care Provider Active Start: November 20, 2024 End: November 20, 2024 Siomara Moreland APRN Attending Provider Active Start: November 20, 2024 End: November 20, 2024 Team Status: Inactive Member Role Status Dates Santino Moran MD Primary Care Provider Active Start: December 08, 2024 End: December 08, 2024 Consuelo Rosales APRN Attending Provider Active Start: December 08, 2024 End: December 08, 2024 Registered Representative Relationship Specialty Start Date End Date Santino Moran MD [facility] [place] [address] PCP - General Family Medicine 06/15/24 Louis Cortez DO [address] [place] [address] Orthopedics 10/02/23 Kellie Watson MD [address] [place] [address] Referring Dermatology 05/14/24 Team Status: Inactive Member Role Status Dates Santino Moran MD Primary Care Provider Active Start: December 20, 2024 End: December 20, 2024 AYDEN Luna RN DISPATCHER [employer]-C Attending Provider Active Start: December 20 End: December 20, 2024 Team Status: Inactive Member Role Status Dates Ze Francois MD Attending Provider Active Start: December 23, 2024 End: December 23, 2024 Registered Representative Relationship Specialty Start Date End Date Berry Beth NP [address] [place] [address] Referring Physician Family Medicine 03/13/24 Registered Representative Relationship Specialty Start Date End Date Berry Beth NP [address] [place] [address] Referring Physician Family Medicine 03/13/24 Team Status: Active Member Role Status Dates PHYSICIAN NO FAMILY Primary Care Provider Active Team Status: Inactive Member Role Status Dates Ze Francois MD Attending Provider Active Start: February 11, 2025 End: February 11, 2025 PHYSICIAN NO FAMILY Primary Care Provider Active Start: February 11, 2025 End: February 11, 2025 Registered Representative Relationship Specialty Start Date End Date Santino Moran MD [address] [place] [address] PCP - General Family Medicine 06/15/24 Louis Cortez DO [address] [place] [address] Orthopedics 10/02/23 Kellie Watson MD [address] [place] [address] Referring Dermatology 05/14/24 Scheduled Active and Recently Administ ered Medications [...] Jacqueline Blake RN)2304 (Given - Provider: Rosa Haque RN) 0443 (Given - Provider: Rosa Haque, KAILA)1120 (Given - Provider: Greta Claudio RN)1715 (Canceled Entry - Provider: System Discharge - Comment: Automatically canceled at discontinue of medication order) albuterol inhaler 1 puff 1 puff, Inhalation, 4 TIMES DAILY, First dose on Sat01/23/22 at 1900, Until Discontinued, Wait at least one(1) full minute between inhalations 2016 (Not Given - Provider: Elvi Mendiola RCP - Reason: Patient/family refused)2300 (Canceled Entry - Provider: System Discharge - Comment: Automatically canceled at discontinue of medication order) 0647 (Not Given - Provider: Nichol Warren RCP - Reason: Other - Comment: Patient has [...] Greta Claudio RN)1151 (Stopped - Provider: Greta Claudio RN) celecoxib (CELEBREX) capsule 200 mg (COMPLETED) 200 mg, Oral, ONCE, 1 dose, On Sat01/23/22 at 0945, Administer 2 hours preop., Pre-op/Pre-Proc 1033 (Given - Provider: Jacqueline Blake RN) cholestyramine light packet 4 g 4 g, Oral, DAILY, First dose on Sat01/24/22 at 0900, Until Discontinued 0840 (Given - Provid er: Greta Claudio RN) dexAMETHasone (DECADRON) injection 10 mg (COMPLETED) 10 [...] Until Discontinued 2018 (Not Given - Provider: Elvi Mendiola, GOLD LEAF PRINTER - Reason: Patient/family refused) 0647 (Not Given - Provider: Nichol Warren, [facility] - Reason: Other - Comment: Patient does [...] to the hypoglycemia management protocol on Ellucid: V-FH-Yljsdxfcamhb Management Protocol. insulin lispro (HumaLOG) injection(Linked Group [...] dose on Sat01/24/22 at 0900, Until Discontinued 08 (Given - Provid er: Greta Claudio RN) loratadine (CLARITIN) tablet 20 mg 20 mg, Oral, DAILY, First dose on Sat01/24/22 at 0900, Until Discontinued 840 (Given - Provid er: Greta Claudio RN) [...] to Continue 1427 ($$New Bag$$ - Provider: Maragrita Lockett RN - Comment: verified and unclamped [...] 2 g, Intravenous, Administer over 30 Minutes, STRIP CUTTING MACHINE OPERATOR TO PROCEDURE, 1 dose, Starting on Sat01/23/22 at 0939, Until Discontinued, Other, Pre-operative antibiotic, For 15 Minutes, Pre-op/Pre-Proc 1202 (Given - Provider: GURPREET Britton) dextrose 10% IV solution 250 mL(Linked Group [...] less than 60 mg/ml. If unresponsive call MANAGER TRADE HYDROmorphone (DILAUDID) injection 0.5 mg 0.5 mg, [...] Greta Claudio, RN)1358 (Given - Provider: Greta Claudio RN) senna-docusate (SENOKOT-S) 8.6-50 MG per tablet 2 tablet 2 tablet, Oral, 2 TIMES DAILY NEEDED, Starting on Sat01/23/22 at 1509, Until Sat01/24/22 at 1830, constipation, Post-op/Post-Proc sodium chloride 0.9 % irrigation NEEDED, Starting on Sat01/23/22 at 1224, Until Sat01/24/22 at 1830, Intra-op/Intra-Proc 1224 (Given - Provider: Puja Pendleton MD - Comment: given to field) sodium phosphate w/sodium biphosphate (FLEETS) enema 1 enema 1 enema, Rectal, DAILY NEEDED, Starting on Sat01/23/22 at 1509, Until Sat01/24/22 at 1830, Refractory Constipation, use per package instructions, Post-op/Post-Proc vancomycin (VANCOCIN) injection NEEDED, Starting on Sat01/23/22 at 1224, Until Sat01/24/22 at 1830, Intra-op/Intra-Proc 1224 (Given - Provider: Puja Pendleton MD - Comment: given to field) zolpidem (AMBIEN) tablet 5 mg 5 mg, [...] to the hypoglycemia management protocol on Ellucid: A-ZQ-Fqexdzyujxqe Management Protocol.
And dextrose 10% IV solution [...] less than 60 mg/ml. If unresponsive call MANAGER TRADE
And NOTIFY PHYSICIAN, Blood Glucose LESS THAN 70 mg/dl or greater than 400 mg/dl (CANCELED) Routine, CONTINUOUS, Starting on Sat01/23/22 at 1737, Until Specified
Who to Notify: DISPATCHER CHIEF OIL/Physician
For all Blood Glucose LESS THAN 70 mg/dl, or greater than 400 mg/dl notify DISPATCHER CHIEF OIL/Physician Goals (unrecognized section and content) Goals may [...] BE BASED ON THE PRIMARY CLINICAL RECORDS. [employer] provides no warranty or guarantee of the accuracy or completeness of information in this document.
--- NOTE | 2025-03-18 11:22 | CT_ITS ---
The [address] [address] Patient Name: CAROLINA GUTIERREZ MRN: [id number] date: 1960 Sex: F Assigned Patient Location: CT Current Patient Location: CT Accession/Order Number: [id number] Exam Date: 03/18/2025 11:12 Report Date: 03/18/2025 12:15 At the request of: CHASE MORAN MD Procedure: CT knee LT wo con CT LEFT KNEE WITHOUT CONTRAST CLINICAL DATA: Left knee pain and swelling since fall 6 days ago. Erythema since yesterday. Prior medial knee hemiarthroplasty. COMPARISON: None Spiral axial unenhanced images were obtained through the knee. Sagittal, coronal and 3-D volume rendered reconstructions were reviewed. This CT exam was performed using one or more following dose reduction techniques: Automated exposure control, adjustment of the mA and/or kV according to patient size, or use of iterative reconstruction technique. There is medial hemiknee arthroplasty. As visualized, the hardware appears intact and in appropriate position however there is associated streak artifact. There is no obvious complication. No acute fractures, dislocation or bony destruction are noted. The lateral tibiofemoral and patellofemoral joint spaces are maintained. There is minimal marginal spurring. There is a trace amount of joint fluid. There is subcutaneous edema, greatest along the anterolateral aspect of the knee. There is a prepatellar fluid collection which extends from the top of patella down to the tibial tubercle over a length of approximately 8.5 cm. Although hematoma is possible given the history of recent trauma, the collection is not hyperdense and is closer to simple fluid. This could be prepatellar bursitis. Clinical correlation is suggested. No obvious Mendiola's cyst is seen. CT/CT knee LT wo con IMPRESSION: MEDIAL KNEE HEMIARTHROPLASTY, WITHOUT OBVIOUS COMPLICATION. NO ACUTE BONY INJURY. SUBCUTANEOUS EDEMA AND PREPATELLAR FLUID COLLECTION, POSSIBLY BURSITIS. CLINICAL CORRELATION IS SUGGESTED. Impression dictated by: Marisa Merlos M.D. 03/18/2025 12:15 PM Dictation Location: [place] [address] Electronically authenticated by: [id number] Y Date: 03/18/2025 12:15
[2025-03-18 11:45] LABS: Hematocrit 34.4 % (36.0-48.0); Hemoglobin 11.2 g/dL (12.0-16.0); Immature Granulocytes Abs Auto 0.09 10^3/uL (0.00-0.03); Immature Granulocytes Pct Auto 0.7 % (0.0-0.5); Lymphocytes Absolute Auto 1.7 10^3/uL (1.2-3.8); Mean Corpuscular HGB Conc 32.6 g/dL (29.9-35.2); Mean Corpuscular Hemoglobin 29.3 pg (26.7-34.0); Mean Corpuscular Volume 90.1 fL (81.0-99.0); Platelet Count 297 10^3/uL (150-450); Red Blood Count 3.82 10^6/uL (4.20-5.40); White Blood Count 12.3 10^3/uL (4.0-11.0)
== END 2025-03-18 10:45 | disposition home or self-care (01) ==
LOC: CT 10:45
PROVIDERS: PCP Family Medicine; Visit Provider Family Medicine
DX: M71.062 Abscess of bursa, left knee (principal)
CPT/HCPCS: 36415; 73700; 76376; 85025; 85652; 86140; 87040

== ENCOUNTER 2025-03-22 12:22 | Outpatient (REF) | payer BC, SELFPAY ==
--- OUTSIDE RECORDS SUMMARY | 2025-01-27 11:30 | XMS_ITS ---
Author Organization The [facility] in [place] Address [address] [place] [address] Care Team Providers Care Vice President Diversity Name Role Phone Ricardo Aviles Primary Care Provider Danny Dupree [phone] REASON FOR VISIT 3m F/U - Asthma Encounters Encounter Location Date Provider Diagnosis Pulmonary Medicine [place] [address] [place] [address] 01/27/2025 Danny Dupree Plan Of Treatment Next Appt Details Provider Name:Ricardo Aviles, 03:15:00 PM, [address] [place], [address], Progress Notes * Izabella GOMEZ ADOB:1960 (64 yo F)Acc No.[id number]:01/27/2025 UNLOCKED PROGRESS NOTE Follow Up Patient: Nigel Sandrayl Nigel Provider: Johny uDpree DO :1960 A ge:64 Y S ex:Female Date:01/27/2025 Address:[address] [place], [place] [id number] Pcp:Ricardo Aviles Subjective: * Chief Complaints: * 1 . 3m F/U - Asthma. * Medical History: Objective: * Vitals: Assessment: Plan: * Treatment: * * Electronic signature of Ivy Dupree DO on 03/22/2025 at 12:28 PM EDT Sign off status: Pending Visit Status: O FF CANC (OFFICE CANCEL) * Provider: Johny Dupree, Date: 0 01/27/2025 Generated for Sonia morrison/Court/Jennifer on: 0 03/22/2025 12:28 PM EDT
--- OUTSIDE RECORDS SUMMARY | 2025-03-12 20:12 | XMS_ITS | Encounter Summary ---
Author Organization [facility] Address [address] [place] [address] Care Team Providers Care Aircraft Engine Dismantler Name Role Phone AmbikaSammy Oswald YOST Unavailable [phone] Catalina Watson MD Unavailable [phone] Santino Aviles MD Primary Care Provider [phone] Source Comments In the event this information is protected by the Federal Confidentiality of Alcohol and Drug AbusePatient Records regulations: The Federal rules restrict any use of the information to criminally investigate or prosecute any alcohol or drug abuse patient.[facility] Reason for Visit * Reason Comments Fall Dizziness Pt arrives to ED fro m home BIB EMS for c/o mechanical fall and dizziness while walking on uneven concrete. Lac to left knee bleeding controlled on arrival, denies LOC, denies blood thinners, denies HH. Encounter Details Date Type Department Care Team (Late st Contact Info) Description 03/12/2025 8:12 PM EDT - 03/13/2025 12:09 AM EDT Emergency [facility] [address] [place] [address] Elvira Olivas DO [address] [place] [address] Jagjit Farley MD [address] [place] [address] Fall Discharge Disposition: Home Social History Tobacco Use Types Packs/Day Years Used Date Smoking Tobacco: Never Smokeless Tobacco: Never Alcohol Use Standard Drinks/Week Comments Yes 0 (1 standard drink = 0.6 oz pur e alcohol) week-ends PHQ-2 Answer Date Recorded PHQ-2 score 0 06/05/2024 Area Deprivation Index Answer Date Rudy rded National Score (1-100), lowe r number is lower risk 67 03/13/2025 State Score (1-10), lower nu mber is lower risk 5 03/13/2025 Data from: https://www.neighborhoodatlas.medicine.[facility].e du/. Last address used for calculation [address] 03/13/2025 Comments No Sex and Gender Information Value Date Recorded Sex Assigned at Not on file Legal Sex Female 8:53 AM EST Gender Identity Not on file Sexual Orientation Not on file Occupation Industry Job Start Date Job End Date Not on file Not on file Not on file Not on file documented as of this encounter Last Filed Vital Signs Vital Sign Reading Time Taken Comments Blood Pressure 122/58 03/12/2025 11:00 PM EDT Pulse 91 03/12/2025 11:00 PM EDT Temperature 36.9 C (98.4 F) 03/12/2025 8:14 PM EDT Respiratory Rate 18 03/12/2025 11:00 PM EDT Oxygen Saturation 93% 03/12/2025 11:00 PM EDT Inhaled Oxygen Concentration - - Weight 79.1 kg (174 lb 6.1 oz) 03/12/2025 8:14 P M EDT Height 142.2 cm (4' 8 ) 03/12/2025 8:14 PM EDT Body Mass Index 39.1 03/12/2025 8:14 PM EDT documented in this encounter Functional Status * Are you deaf or do you have serious difficulty hearing? Answer Date of Assessment Author No 04/15/2024 2:04 PM EDT Austen Tee RN * Are you blind or do you have serious difficulty seeing, even when wearing glasses? Answer Date of Assessment Author No 04/15/2024 2:04 PM EDT Austen Tee RN * Do you have serious difficulty walking or climbing stairs? Answer Date of Assessment Author No 04/15/2024 2:04 PM EDT Austen Tee RN * Do you have difficulty dressing or bathing? Answer Date of Assessment Author No 04/15/2024 2:04 PM EDT Austen Tee RN * Because of a physical, mental, or emotional condition, do you have difficulty doing errands alone such as visiting a doctor's office or shopping? Answer Date of Assessment Author No 04/15/2024 2:04 PM EDT Austen Tee RN documented as of this encounter Mental Status * Because of a physical, mental, or emotional condition, do you have serious difficulty concentrating, remembering, or making decisions? Answer Entry Date Author No 04/15/2024 2:04 PM EDT Austen Tee RN documented in this encounter Discharge Instructions * Discharge Instructions* Elvira Olivas DO - 03/12/2025 10:41 PM EDT Please return immediately if you develop any weakness, numbness, nausea, vomiting, swelling, redness, drainage, signs of infection, fever, chills, headaches, or any other worsening/concerning symptoms. Please make sure that you call your doctor to schedule follow-up appointment within 1 week. Please also make sure that you call your orthopedic doctor at home. Please make sure that you wear your knee immobilizer and do not bend your left knee so that your sutures stay in place. * Attachments The following attachments cannot be sent through Care Everywhere. * Laceration, Sutures - Suture Removal In 7 Days (TURKMEN) documented in this encounter Medications at Time of Discharge celecoxib (CELEBREX) 200 mg capsule TAKE 1 CAPSULE BY MOUTH TWICE A DAY 180 capsule [address] (PROTONIX) 40 mg tablet Take 40 mg by mouth once daily. 4 levothyroxine (SYNTHROID) 137 mcg tablet Take 1 tablet by mouth once daily. metoprolol succinate ER (TOPROL XL) 25 mg 24 hr tablet TAKE 1 TABLET BY MOUTH EVERY DAY IN ADDITION TO 50MG DOSE, FOR TOTAL DOSE OF 75MG DAILY 5 metoprolol succinate ER (TOPROL XL) 50 mg 24 hr tablet Take 50 mg by mouth once daily. fluticasone-salmete rol (ADVAIR) 500-50 mcg/dose dsdv INHALE 1 PUFF BY MOUTH TWICE A DAY *RINSE MOUTH AFTER USE* 5 dupilumab (DUPIXENT SYRINGE) 100 mg/0.67 mL injection cyclobenzaprine (FLEXERIL) 10 mg tablet Take by mouth. 3 upadacitinib tablet ER 24 hr 15 mg (RINVOQ)Indications :Rheumatoid arthritis of multiple sites without rheumatoid factor (HCC) Take 1 tablet by mouth once daily. 30 tablet 3 5 ondansetron (ZOFRAN) 4 mg tablet Take 1 tablet by mouth every 8 hours as needed for nausea/vomiting. 10 tablet 1 4 L.acidophilus-L.rha mnosus (PROBIOTIC) 15 billion cell capsule Take 1 capsule by mouth once daily. Align furosemide (LASIX) 20 mg tablet Take 20 mg by mouth once daily. 4 potassium chloride ER (KLOR-CON) 20 mEq tablet Take 20 mEq by mouth two times a day. 4 tiotropium bromide (SPIRIVA WITH HANDIHALER INHALATION) Inhale 1 Puff as instructed once daily. montelukast sodium (SINGULAIR ORAL) Take 10 mg by mouth two times a day. semaglutide (OZEMPIC) 2 mg/dose (8 mg/3 mL) pen injector Inject 2 mg subcutaneously one time a week. 4 ondansetron orally disintegrating (ZOFRAN ODT) 4 mg disintegrating tabletIndications:N ausea Take 1 tablet by mouth every 8 hours as needed. 90 tablet 1 4 EPIPEN 2-SHANE 0.3 mg/0.3 mL (1:1,000) atIn 4 fluticasone (FLONASE) 50 mcg/actuation nasal spray 1 [place] daily at bedtime. in each nostril. 0 1 Cholecalciferol, Vitamin D3, 1,000 unit ORAL Tab Take 1 tablet by mouth once daily. 0 1 CITRACAL 500 MG (2,376 MG) EFFERVESCENT TABIndications:Othe r and unspecified nonspecific immunological findings,Alopecia Take one(1) tablet two(2) times daily. 0 6 doxycycline monohydrate 100 mg tablet Take 1 tablet by mouth two times a day for 5 days. 10 tablet 5 03/17/20 25 documented as of this encounter ED Notes * Nikky Alvares RN - 03/13/2025 12:07 AM EDT Discharge instructions d/w pt and family at bedside. Stated understanding with no further questionsfor this nurse. Encouraged f/u with PCP and referring doctors given. Stated understanding. Prescription(S) were given X 0. * Elvira Olivas, - 03/12/2025 9:19 PM EDTAssociated Order(s): LAC REPAIR ED Provider Note Patient Name: Izabella Gomez : 1960 SERVICE DATE: 03/12/25 History Patient presents with: Fall Dizziness: Pt arrives to ED from home BIB EMS for c/o mechanical fall and dizziness while walking on uneven concrete. Lac to left knee bleeding controlled on arrival, denies LOC, denies blood thinners, denies HH. HPI 64-year-old female PMH RA, COPD presents today for mechanical fall. Patient states that she was ambulating when her shoe got caught and she fell and hit her left knee and thinks that she struck her head. Denies any blood thinners. States that she did feel lightheaded initially. Denies any chest pain, shortness of breath, focal weakness or numbness, nausea, vomiting, vision changes. Denies abdominal pain, bowel or urinary changes, fevers, chills, cough/URI. PAST MEDICAL HISTORY Diagnosis Date ??? Alopecia totalis ??? Arthritis ??? Asthma ??? Diabetes (HCC) 12/20/2023 ??? Heavy menses ??? Hyperlipidemia 05/06/2012 ??? Hypertension 12/20/2023 ??? 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 Obesity ??? Rosacea ??? Seasonal allergies PAST SURGICAL HISTORY Procedure Laterality Date ??? APPENDECTOMY ??? BX BREAST NEEDLE CORE W/O IMAGING GUIDANCE SPX 09/25/2007 left axillary lymph node ??? HYSTERECTOMY HX both ovaries intact ??? PAST SURGICAL HISTORY OF bilateral partial knee replacement. ??? PAST SURGICAL HISTORY OF hysterectomy ??? PAST SURGICAL HISTORY OF Right 1989 tibialis anterior tendon ??? PAST SURGICAL HISTORY OF 2014 straightening pronated feet ??? PAST SURGICAL HISTORY OF Right 2021 total knee right ??? PAST SURGICAL HISTORY OF Left 05/2023 total reverse shoulder ??? REMOVAL GALLBLADDER ??? REMV CATARACT EXTRACAP,INSERT LENS Bilateral ??? S ANTERIOR TIBIALIS TENDON TONSILLECTOMY & ADENOIDECTOMY <AGE 11 FAMILY HISTORY Problem Relation Age of Onset ??? Cancer Mother ??? Cerebral Embolism Father CVA, aneurysm, [place], ??? other (normal [Other]) Sister ??? None Sister ??? None Sister ??? Breast Cancer No Family History no known family h/o breast or ovarian cancer ??? Anesthesia Problems No Family History Social History[1] ALLERGIES Allergen Reactions ??? Keflex [Cephalexin] Hives ??? Penicillins Hives ??? Eliquis [Apixaban] Hives ??? Tree Nuts Anaphylaxis Review of Systems Constitutional: Negative for fatigue and fever. HENT: Negative for congestion. Respiratory: Negative for cough and shortness of breath. Cardiovascular: Negative for chest pain and leg swelling. Gastrointestinal: Negative for abdominal pain, diarrhea, nausea and vomiting. Genitourinary: Negative for dysuria. Neurological: Positive for light-headedness. Physical Exam Vitals [03/12/252013] BP Pulse Temp Temp src Resp SpO2 Weight Height 144/83 75 36.9 ??C (98.4 ??F) Oral 22 97 % 79.1 kg (174 lb 6.1 oz) 1.422 m (4' 8 ) Physical Exam Constitutional: General: She is not in acute distress. Appearance: She is not ill-appearing, toxic-appearing or diaphoretic. HENT: Head: Normocephalic. Nose: Nose normal. Mouth/Throat: Mouth: Mucous membranes are moist. Eyes: Pupils: Pupils are equal, round, and reactive to light. Cardiovascular: Rate and Rhythm: Normal rate and regular rhythm. Pulses: Normal pulses. Pulmonary: Effort: Pulmonary effort is normal. No respiratory distress. Breath sounds: No wheezing. Abdominal: Palpations: Abdomen is soft. Tenderness: There is no abdominal tenderness. There is no guarding. Musculoskeletal: Right lower leg: No edema. Left lower leg: No edema. Skin: Capillary Refill: Capillary refill takes less than 2 seconds. Neurological: Mental Status: She is alert. A: Airway intact B: Breath sounds intact bilaterally with good air movement C: +2 radial and DPs bilaterally GCS 15 Dull sensation intact in bilateral upper lower extremities. Patient strength intact bilateral upperand lower extremities. Head: Atraumatic, no cephalhematomas. Nontender palpation of maxillary and mandibular areas C-spine: Nontender palpation, no step-offs or deformities Eyes: PERRLA, no periorbital ecchymosis or edema Nose: No nasal septal hematomas Mouth: No fractured teeth, intraoral lacerations Chest: Nontender to palpation. No overlying ecchymosis or erythema. Abdomen: Nontender to palpation, soft in all quadrants. Pelvis: Stable, nontender to palpation Back/T/L-spine. Nontender to palpation, no step-offs or deformities. RUE: Full range of motion, nontender to palpation, atraumatic LUE: Full range of motion, nontender to palpation, atraumatic RLE: Full range of motion, nontender to palpation, atraumatic LLE: 7 cm laceration appreciated over anterior aspect of right knee/kneecap. Full range of motion, nontender to palpation, atraumatic. Patient is able to raise left lower extremity off of the bed. Neuro: 5/5 BUE, BLE strength. Sensation intact BUE, BLE. General: In no acute distress, resting comfortably in bed Diagnostic Testing ED Labs Ordered and Reviewed BASIC METABOLIC PANEL - Abnormal; Notable for the following components: Result Value Ref Range Glucose 102 (*) 74 - 99 mg/dL BUN 22 (*) 7 - 21 mg/dL All other components within normal limits COMPLETE BLOOD COUNT - Abnormal; Notable for the following components: WBC 11.12 (*) 3.70 - 11.00 k/uL Hematocrit 35.6 (*) 36.0 - 46.0 % All other components within normal limits MAGNESIUM - Normal HIGH SENSITIVITY TROPONIN T (INITIAL) POTASSIUM Results for orders placed or performed during the hospital encounter of 03/12/25 EKG Impression SINUS RHYTHM WITH OCCASIONAL PREMATURE VENTRICULAR COMPLEXES POSSIBLE LEFT ATRIAL ENLARGEMENT CANNOT RULE OUT ANTERIOR INFARCT , AGE UNDETERMINED T WAVE ABNORMALITY, CONSIDER LATERAL ISCHEMIA ABNORMAL ECG No Stemi Confirmed by ELVIRA OLIVAS DO ([id number]) on 03/12/2025 9:22:56 PM LAC REPAIR Date/Time: 03/12/2025 10:45 PM Performed by: Elvira Olivas DO Authorized by: Elvira Olivas DO Informed Consent Consent Obtained: Verbal Franklin Protocol A moment to CARE was completed. SIGN IN Sign in communication not applicable due to emergent procedure. Personnel directly involved with the procedure wore the appropriate PPE. Special Equipment: N/A Patient/Surrogate Stated/Verified: Patient name, Date of and Intended procedure TIME OUT Relevant labs, photos, and/or imaging studies have been reviewed. Intended patient and procedure match source documents. Consent obtained and matches the intended procedure. Correct side/site marked and visible. Medications required for procedure verified. Fire risk assessed and interventions discussed. No implant(s) inserted. Risks discussed: Infection, pain, retained foreign body, tendon damage, poor cosmetic result, need for additional repair, poor wound healing, vascular damage and nerve damage Alternatives discussed: No treatment and observation Anesthesia (see MAR for exact dosages): Anesthesia method: Local infiltration Local anesthetic: Lidocaine 1% WITH epi Laceration details: Location: Leg Leg location: Left knee. Length (cm): 7 Depth (mm): 8 Repair type: Repair type: Simple Pre-procedure details: Preparation: Patient was prepped and draped in usual sterile fashion and imaging obtained to evaluate for foreign bodies Exploration: Hemostasis achieved with: Epinephrine Wound exploration: wound explored through full range of motion and entire depth of wound probed andvisualized Wound extent: fascia not violated, no foreign body, no signs of injury, no nerve damage, no tendon damage, no underlying fracture and no vascular damage Contaminated: no Treatment: Area cleansed with: Betadine Amount of cleaning: Extensive Irrigation solution: Sterile saline Irrigation volume: 2L Irrigation method: Syringe Visualized foreign bodies/material removed: no Skin repair: Repair method: Sutures Suture size: 4-0 Suture material: Prolene Suture technique: Simple interrupted Number of sutures: 8 Approximation: Approximation: Close Post-procedure details: Dressing: Antibiotic ointment and non-adherent dressing (knee imobilizer) Patient tolerance of procedure: Tolerated well, no immediate complications SIGN OUT All specimens correctly labeled and sent. All instruments, equipment, possible retained foreign bodies accounted for. The post-procedure POC has been communicated to the patient or surrogate. Post-procedure POC communicated to patient's multidisciplinary team (including bedside nurse for hospitalized patients). ED Course / Clinical Impression ED Course as of 03/12/25 2304 Elvira Olivas's Documentation SatMar 12, [id number] CT BRAIN WO IVCON IMPRESSION: No acute intracranial hemorrhage identified. 2123 CT CERVICAL SPINE WO IVCON IMPRESSION: No acute fractures demonstrated in the cervical spine. Cervical spine degenerative changes with C5-6 disc space narrowing. 2224 BASIC METABOLIC PNL(!): Glucose 102(!) BUN 22(!) Creatinine 0.72 Sodium 138 Chloride 101 CO2 26 Anion Gap 11 Calcium 9.0 eGFR 93 2224 Magnesium: 1.9 2235 Magnesium: 1.9 2237 XR KNEE 4V AP/LAT/OBLS LT - INJURY IMPRESSION: 1. Uncomplicated appearance of medial compartment arthroplasty. 2. Mild patellofemoral arthrosis. 2257 DOMENICA High Sensitivity: 8 2304 Potassium: 4.0 Clinical Impressions as of 03/12/25 2304 Laceration of left knee, initial encounter Fall, initial encounter Lightheadedness MDM / Disposition / Plan Chart review: Seen 02/15/2025 by rheumatology. History of RA Chart review: Admitted 04/14/2024 by orthopedics for shoulder surgery C/B infection History and Record Review External record(s) reviewed: prior outpatient record. Findings from review of outpatient records: see above Differential Diagnoses - Mechanical fall is more likely for the following reason(s): suggested by H&P - Lightheadedness is more likely for the following reason(s): suggested by H&P - Laceration is more likely for the following reason(s): suggested by H&P - Fracture is less likely for the following reason(s): no evidence on imaging Management I performed an independent interpretation of the following:imaging Imaging: My interpretation is X-ray of the evidence of acute fracture on my personal review 64-year-old female PMH RA, COPD presents today for mechanical fall. Patient arrives hemodynamicallystable, saturating well on room air and in no acute distress. Patient afebrile and overall nontoxic-appearing. GCS 15. Patient neurovascular intact. Imaging per above. No evidence of acute fractures.CT without evidence of occult fracture or open joint. Foreign bodies were noted on CT, patient wound was copiously irrigated. I do not appreciate any obvious foreign bodies. Lacerations was placed and wound was well-approximated. Did discuss extensively that patient will need to refrain from bending her left knee and to remain in her knee immobilizer until follow-up. Patient verbalized understanding. Labs and imaging per above. Minimal leukocytosis, likely noncontributory. No anemia. Signed out 11 PM pending troponins, potassium. Patient to likely be discharged home. SIGNATURE: Elvira Olivas DO - ELVIRA OLIVAS 03/12/25 5312 [1] Social History Tobacco Use ??? Smoking status: Never ??? Smokeless tobacco: Never Vaping Use ??? Vaping status: Never Used Substance and Sexual Activity ??? Alcohol use: Yes Comment: week-ends ??? Drug use: No ??? Sexual activity: Not Currently Partners: Female * Nikky Alvares RN - 03/12/2025 8:21 PM EDT Pt arrives to ED from home BIB EMS for c/o mechanical fall and dizziness while walking on uneven concrete. Lac to left knee bleeding controlled on arrival, denies LOC, denies blood thinners, denies HH. * Nikky Alvares RN - 03/12/2025 8:12 PM EDT Bed: ED-06 Expected date: 03/12/25 Expected time: Means of arrival: Comments: M2 documented in this encounter Miscellaneous Notes * ED Progress Note - Minlupei, Jagjit, MD - 03/12/2025 11:37 PM EDT ED CONTINUATION OF CARE NOTE Code Status: Full Code Assumed care from: Brendon Presentation / Findings / Interventions / Plan / Items to Follow Up: Patient signed out to me pending second troponin. It is thankfully negative at this time without any significant change from the previous. I have discussed all findings with the patient at bedside. We have discussed all return andfollow-up instructions to which she is amenable. Discharged in good condition. ED Course as of 03/12/25 2337 Others' Documentation SatMar 12, [id number] CT BRAIN WO IVCON IMPRESSION: No acute intracranial hemorrhage identified. [KS] 2123 CT CERVICAL SPINE WO IVCON IMPRESSION: No acute fractures demonstrated in the cervical spine. Cervical spine degenerative changes with C5-6 disc space narrowing. [KS] 2224 BASIC METABOLIC PNL(!): Glucose 102(!) BUN 22(!) Creatinine 0.72 Sodium 138 Chloride 101 CO2 26 Anion Gap 11 Calcium 9.0 eGFR 93 [KS] 2224 Magnesium: 1.9 [KS] 2235 Magnesium: 1.9 [KS] 2237 XR KNEE 4V AP/LAT/OBLS LT - INJURY IMPRESSION: 1. Uncomplicated appearance of medial compartment arthroplasty. 2. Mild patellofemoral arthrosis. [KS] 2257 DOMENICA High Sensitivity: 8 [KS] 2304 Potassium: 4.0 [KS] ED Course User Index [KS] Elvira Olivas DO Clinical Impressions as of 03/12/25 2337 Laceration of left knee, initial encounter Fall, initial encounter Lightheadedness Results for orders placed or performed during the hospital encounter of 03/12/25 EKG Impression SINUS RHYTHM WITH OCCASIONAL PREMATURE VENTRICULAR COMPLEXES POSSIBLE LEFT ATRIAL ENLARGEMENT CANNOT RULE OUT ANTERIOR INFARCT , AGE UNDETERMINED T WAVE ABNORMALITY, CONSIDER LATERAL ISCHEMIA ABNORMAL ECG No Stemi Confirmed by ELVIRA OLIVAS DO ([id number]) on 03/12/2025 9:22:56 PM Medical Decision Making SIGNATURE: Jagjit Farley MD PATIENT NAME: Izabella Gomez DATE: March 12, 2025 TIME: 11:37 PM PAGER/CONTACT #: * [facility] - Isatu Kirk CT - 03/12/2025 8:32 PM EDT Radiology Service Progress Note PATIENT NAME: Izabella Gomez DATE OF SERVICE: March 12, 2025 TIME: 8:32 PM PATIENT IDENTITY VERIFICATION COMPLETED USING TWO (2) IDENTIFIERS: Name and Date of confirmedby patient verbally and Name and Date of confirmed by identification band. FALL SCREENING: Has the patient had 2 falls in the last year or 1 fall with injury or currently using an Ambulatory Assistive Device (Walker, Cane, Wheelchair, Crutches, etc.)? Emergency Room Patient: Screened in ED PATIENT GENDER DATA: Assigned female at . status: : No status:NO. PATIENT RELEVANT IMPLANT DATA REVIEWED: Not Applicable PATIENT PRESENTS WITH AN IMPLANTABLE OR ATTACHED COLLECTION CLERK: No RADIOLOGY DEPARTMENT: CT; Exam(s) Completed: Brain , Lower extremity , and Spine . Anesthesia: No PERIPHERAL IV DATA: Not applicable SIGNED BY: FOUZIA Smiley March 12, 2025 8:32 PM documented in this encounter Plan of Treatment Upcoming Encounters Date Type Department Care Team (Late st Contact Info) Description 02/14/2026 9:00 AM EDT Office Visit Rheumatology [address] [facility] [place] [address] Shanna Muller MD [address] [place] [address] RTC after DXA- 6-12 mo f/u documented as of this encounter Procedures Procedure Name Priority Date/Time Associated Diagnosis Comments HIGH SENSITIVITY TROPONIN T (SECOND) STAT 03/12/2025 11:30 PM EDT [facility] ED NOTEWRITER PROCEDURE LACERATION REPAIR Routine 03/12/2025 10:45 PM EDT POTASSIUM BLD STAT Add-on 03/12/2025 10:24 PM EDT HIGH SENSITIVITY TROPONIN T (INITIAL) STAT 03/12/2025 10:24 PM EDT MAGNESIUM BLD STAT 03/12/2025 9:46 PM EDT COMPLETE BLOOD COUNT STAT 03/12/2025 9:46 PM EDT BASIC METABOLIC PANEL STAT 03/12/2025 9:46 PM EDT XR KNEE INJURY 4V AP/LAT/OBLS LEFT STAT 03/12/2025 9:[address] KNEE WO IVCON LEFT STAT 03/12/2025 8:[address] CERVICAL SPINE WO IVCON STAT 03/12/2025 8:[address] BRAIN WO IVCON STAT 03/12/2025 8:4 1 PM EDT EKG Routine 03/12/2025 8:26 PM EDT documented in this encounter Results * HIGH SENSITIVITY TROPONIN T (SECOND) (03/12/2025 11:30 PM EDT) DOMENICA High Sensitivity 10 <12 ng/L 03/13/2025 12:10 AM EDT [facility] Blood BLOOD SPECIMEN / Unknown Venipuncture / Unknown 03/12/2025 11:30 PM EDT 03/12/2025 11:40 PM EDT us Elvira Olivas DO LABORATORY Final Result [facility] [address] [place] [address], * LAC REPAIR (03/12/2025 10:45 PM EDT) Narrative Elvira Olivas DO - 03/12/2025 10:45 PM EDT Elvira Olivas DO 03/12/2025 10:51 PM LAC REPAIR Date/Time: 03/12/2025 10:45 PM Performed by: Elvira Olivas DO Authorized by: Elvira Olivas DO Informed Consent Consent Obtained: Verbal Franklin Protocol A moment to CARE was completed. SIGN IN Sign in communication not applicable due to emergent procedure. Personnel directly involved with the procedure wore the appropriate PPE. Special Equipment: N/A Patient/Surrogate Stated/Verified: Patient name, Date of and Intended procedure TIME OUT Relevant labs, photos, and/or imaging studies have been reviewed. Intended patient and procedure match source documents. Consent obtained and matches the intended procedure. Correct side/site marked and visible. Medications required for procedure verified. Fire risk assessed and interventions discussed. No implant(s) inserted. Risks discussed: Infection, pain, retained foreign body, tendon damage, poor cosmetic result, need for additional repair, poor wound healing, vascular damage and nerve damage Alternatives discussed: No treatment and observation Anesthesia (see MAR for exact dosages): Anesthesia method: Local infiltration Local anesthetic: Lidocaine 1% WITH epi Laceration details: Location: Leg Leg location: Left knee. Length (cm): 7 Depth (mm): 8 Repair type: Repair type: Simple Pre-procedure details: Preparation: Patient was prepped and draped in usual sterile fashion and imaging obtained to evaluate for foreign bodies Exploration: Hemostasis achieved with: Epinephrine Wound exploration: wound explored through full range of motion and entire depth of wound probed and visualized Wound extent: fascia not violated, no foreign body, no signs of injury, no nerve damage, no tendon damage, no underlying fracture and no vascular damage Contaminated: no Treatment: Area cleansed with: Betadine Amount of cleaning: Extensive Irrigation solution: Sterile saline Irrigation volume: 2L Irrigation method: Syringe Visualized foreign bodies/material removed: no Skin repair: Repair method: Sutures Suture size: 4-0 Suture material: Prolene Suture technique: Simple interrupted Number of sutures: 8 Approximation: Approximation: Close Post-procedure details: Dressing: Antibiotic ointment and non-adherent dressing (knee imobilizer) Patient tolerance of procedure: Tolerated well, no immediate complications SIGN OUT All specimens correctly labeled and sent. All instruments, equipment, possible retained foreign bodies accounted for. The post-procedure POC has been communicated to the patient or surrogate. Post-procedure POC communicated to patient's multidisciplinary team (including bedside nurse for hospitalized patients). Elvira Olivas DO PROCEDURE Final Result * POTASSIUM (03/12/2025 10:24 PM EDT) Potassium 4.0 3.7 - 5.1 mmol/L 03/12/2025 10:58 PM EDT [facility] Blood BLOOD SPECIMEN / Unknown Venipuncture / Unknown 03/12/2025 10:24 PM EDT 03/12/2025 10:31 PM EDT [facility] Final Result [facility] [address] * HIGH SENSITIVITY TROPONIN T (INITIAL) (03/12/2025 10:24 PM EDT) Pathologist [facility] [place] DOMENICA High Sensitivity 8 <12 ng/L 03/12/2025 10:51 PM EDT [facility] Blood BLOOD SPECIMEN / Unknown Venipuncture / Unknown 03/12/2025 10:24 PM EDT 03/12/2025 10:31 PM EDT [employer] LABORATORY Final Result Performing Organization Address City/[facility]/ZIP Co de Phone Number [facility] [address] * MAGNESIUM (03/12/2025 9:46 PM EDT) Pathologist [facility] [place] Magnesium 1.9 1.7 - 2.3 mg/dL 03/12/2025 10:18 PM EDT [facility] Blood BLOOD SPECIMEN / Unknown Venipuncture / Unknown 03/12/2025 9:46 PM EDT 03/12/2025 9:53 PM EDT [facility] [facility] Final Result Performing Organization Address City/[facility] Co de Phone Number [facility] [address] * (ABNORMAL) COMPLETE BLOOD COUNT (03/12/2025 9:46 PM EDT) WBC 11.12(H) 3.70 - 11.00 k/uL 03/12/2025 9:56 PM EDT [facility] RBC 3.97 3.90 - 5.20 m/uL 03/12/2025 9:56 PM EDT [facility] Hemoglobin 11.5 11.5 - 15.5 g/dL 03/12/2025 9:56 PM EDT [facility] Hematocrit 35.6(L) 36.0 - 46.0 % 03/12/2025 9:56 PM EDT [facility] MCV 89.7 80.0 - 100.0 fL 03/12/2025 9:56 PM EDT [facility] MCH 29.0 26.0 - 34.0 pg 03/12/2025 9:56 PM EDT [facility] MCHC 32.3 30.5 - 36.0 g/dL 03/12/2025 9:56 PM EDT [facility] RDW-CV 14.9 11.5 - 15.0 % 03/12/2025 9:56 PM EDT [facility] Platelet Count 308 150 - 400 k/uL 03/12/2025 9:56 PM EDT [facility] MPV 9.1 9.0 - 12.7 fL 03/12/2025 9:56 PM EDT [facility] Absolute nRBC <0.01 <0.01 k/uL 03/12/2025 9:56 PM EDT [facility] Blood BLOOD SPECIMEN / Unknown Venipuncture / Unknown 03/12/2025 9:46 PM EDT 03/12/2025 9:53 PM EDT Elvira Brendon LABORATORY Final Result [facility] [address] [place] [address], * (ABNORMAL) BASIC METABOLIC PANEL (03/12/2025 9:46 PM EDT) [facility] Glucose 102(H) 74 - 99 mg/dL 03/12/2025 10:18 PM EDT [facility] Comment: The [place] [employer] Association (ADA) provides guidance for cutoff values for fasting glucose and random glucose. The ADA defines fasting as no caloric intake for at least 8 hours. Fasting plasma glucose results between 100 to 125 mg/dL indicate increased risk for diabetes (prediabetes). Fasting plasma glucose results greater than or equal to 126 mg/dL meet the criteria for diagnosis of diabetes. In the absence of unequivocal hyperglycemia, results should be confirmed by repeat testing. In a patient with classic symptoms of hyperglycemia or hyperglycemic crisis, random plasma glucose results greater than or equal to 200 mg/dL meet the criteria for diagnosis of diabetes. Reference: Standards of Medical Care in Diabetes 2016, [place] [employer] Association. Diabetes Care. 2016.39(Suppl 1). BUN 22(H) 7 - 21 mg/dL 03/12/2025 10:18 PM EDT [facility] Creatinine 0.72 0.58 - 0.96 mg/dL 03/12[facility]2025 10:[facility] Sodium 138 136 - 144 mmol/L 03/12/2025 10:[facility] Potassium 03/12/2025 10:18 PM T [facility] Comment:Unable to assay due to interference from hemolysis. Suggest reorder as clinically indicated. Chloride 101 98 - 107 mmol/L 03/12/2025 10:18 PM [facility] CO2 26 22 - 30 mmol/L 03/12/2025 10:18 PM [facility] Anion Gap 11 8 - 15 mmol/L 03/12/2025 10:18 PM [facility] Calcium, Total 9.0 8.5 - 10.2 mg/dL 03/12/2025 10:18 PM [facility] Estimated Glomerular Filtration Rate 93 >=60 mL/min/1. 73m 03/12/2025 10:18 PM [facility] Comment:Estimated Glomerular Filtration Rate (eGFR) is calculated using the 2020 CKD-EPI creatinine equation. This equation utilizes serum creatinine, sex, and age as parameters. The creatinine assay has traceable calibration to isotope dilution- mass spectrometry. Refer to KDIGO guidelines for clinical interpretation. In patients with unstable renal function, e.g. those with acute kidney injury, the eGFR may not accurately reflect actual GFR. Blood BLOOD SPECIMEN / Unknown Venipuncture / Unknown 03/12/2025 9:46 PM EDT 03/12/2025 9:53 PM EDT us Elvira Olivas DO LABORATORY Final Result [facility] [address] [place] [address], [place] * XR KNEE INJURY 4V AP/LAT/OBLS LEFT (03/12/2025 9:18 PM EDT) Anatomical Region Laterality Modality Knee Radiographic Chiquita ging 03/12/2025 9:18 PM EDT Impressions 03/12/2025 10:35 PM EDT IMPRESSION: 1. Uncomplicated appearance of medial compartment arthroplasty. 2. Mild patellofemoral arthrosis. Superintendent Commissary: DEBBIE Transcribe Date/Time: Mar 12 2025 10:30P Dictated by : ANTONIO VELASQUEZ MD This examination was interpreted and the report reviewed and electronically signed by: ANTONIO VELASQUEZ MD on Mar 12 2025 10:33PM EST Narrative 03/12/2025 10:35 PM EDT * * *Final Report* * * DATE OF EXAM: Mar 12 2025 9:18PM MDX 5204 - XR KNEE 4V AP/LAT/OBLS LT / PROCEDURE REASON: Trauma * * * * Physician Interpretation * * * * EXAMINATION: XR KNEE 4V AP/LAT/OBLS LT CLINICAL HISTORY: Trauma Technique: 4 views of the LEFT knee were obtained. COMPARISON: None available FINDINGS: Medial compartmental arthroplasty noted without periprosthetic lucency or other evidence of hardware complication. Tiny patellar osteophytes. There is no evidence of joint effusion. Soft tissues are grossly unremarkable. Procedure Note Provider, [facility] [place] - 03/12/2025 * * *Final Report* * * DATE OF EXAM: Mar 12 2025 9:18PM MDX 5204 - XR KNEE 4V AP/LAT/OBLS LT / PROCEDURE REASON: Trauma * * * * Physician Interpretation * * * * EXAMINATION: XR KNEE 4V AP/LAT/OBLS LT CLINICAL HISTORY: Trauma Technique: 4 views of the LEFT knee were obtained. COMPARISON: None available FINDINGS: Medial compartmental arthroplasty noted without periprosthetic lucency or other evidence of hardware complication. Tiny patellar osteophytes. There is no evidence of joint effusion. Soft tissues are grossly unremarkable. IMPRESSION IMPRESSION: 1. Uncomplicated appearance of medial compartment arthroplasty. 2. Mild patellofemoral arthrosis. Superintendent Commissary: [facility] Transcribe Date/Time: Mar 12 2025 10:30P Dictated by : ANTONIO VELASQUEZ MD This examination was interpreted and the report reviewed and electronically signed by: ANTONIO VELASQUEZ MD on Mar 12 2025 10:33PM EST Elvira Olivas DO RAD-PAMA Final Result * CT KNEE WO IVCON LEFT (03/12/2025 8:41 PM EDT) Anatomical Region Laterality Modality Knee Computed Tomogra phy 03/12/2025 8:41 PM EDT Impressions 03/12/2025 10:21 PM EDT IMPRESSION: 1. Postsurgical changes of medial unicompartmental arthroplasty. No acute osseous abnormality identified. 2. Subcutaneous stranding and gas in the soft tissues anterior to the patella compatible with patient's history of laceration. 3. 2 radiopaque densities in the soft tissues anterior to the tibial tuberosity which may represent foreign bodies. Superintendent Commissary: [facility] Transcribe Date/Time: Mar 12 2025 10:05P Dictated by : FATOUMATA CONNELL MD This examination was interpreted and the report reviewed and electronically signed by: FATOUMATA CONNELL MD on Mar 12 2025 10:19PM EST Narrative 03/12/2025 10:21 PM EDT * * *Final Report* * * DATE OF EXAM: Mar 12 2025 8:41PM [facility] 0083 - CT KNEE WO IVCON LT / PROCEDURE REASON: fall, hit L knee * * * * Physician Interpretation * * * * EXAMINATION: LEFT KNEE CT WITHOUT CONTRAST CLINICAL HISTORY: Fall, dizzy, left knee laceration and pain Technique: Spiral CT acquisition of the left knee without contrast. CT Radiation dose: Integrated Dose-length product (DLP) for this visit = 175 mGy*cm CT Dose Reduction Employed: Automated exposure control(AEC) and iterative recon Comparison: None RESULT: There are postsurgical changes of medial unicompartmental arthroplasty. There is streak artifact associated with the orthopedic hardware. Over the orthopedic hardware is intact with no acute fracture or periprosthetic lucency is identified. The remainder of the osseous structures are intact with no acute fracture or osseous lesion identified. Patellofemoral and lateral compartment osteophytes indicate early DJD. There is subcutaneous stranding and gas in the soft tissues located anterior to the patella. Findings are compatible with patient's history of laceration. There are 2 radiopaque densities in the soft tissues anterior to the tibial tuberosity which measures up to 4 mm (604:48). These may represent a foreign body. No joint effusion is identified. Localizer images: Postsurgical changes of a constrained right total knee arthroplasty are noted. Procedure Note Provider, [facility] [place] - 03/12/2025 * * *Final Report* * * DATE OF EXAM: Mar 12 2025 8:41PM [facility] 0083 - CT KNEE WO IVCON LT / PROCEDURE REASON: fall, hit L knee * * * * Physician Interpretation * * * * EXAMINATION: LEFT KNEE CT WITHOUT CONTRAST CLINICAL HISTORY: Fall, dizzy, left knee laceration and pain Technique: Spiral CT acquisition of the left knee without contrast. CT Radiation dose: Integrated Dose-length product (DLP) for this visit = 175 mGy*cm CT Dose Reduction Employed: Automated exposure control(AEC) and iterative recon Comparison: None RESULT: There are postsurgical changes of medial unicompartmental arthroplasty. There is streak artifact associated with the orthopedic hardware. Over the orthopedic hardware is intact with no acute fracture or periprosthetic lucency is identified. The remainder of the osseous structures are intact with no acute fracture or osseous lesion identified. Patellofemoral and lateral compartment osteophytes indicate early DJD. There is subcutaneous stranding and gas in the soft tissues located anterior to the patella. Findings are compatible with patient's history of laceration. There are 2 radiopaque densities in the soft tissues anterior to the tibial tuberosity which measures up to 4 mm (604:48). These may represent a foreign body. No joint effusion is identified. Localizer images: Postsurgical changes of a constrained right total knee arthroplasty are noted. IMPRESSION IMPRESSION: 1. Postsurgical changes of medial unicompartmental arthroplasty. No acute osseous abnormality identified. 2. Subcutaneous stranding and gas in the soft tissues anterior to the patella compatible with patient's history of laceration. 3. 2 radiopaque densities in the soft tissues anterior to the tibial tuberosity which may represent foreign bodies. Superintendent Commissary: [facility] Transcribe Date/Time: Mar 12 2025 10:05P Dictated by : FATOUMATA CONNELL MD This examination was interpreted and the report reviewed and electronically signed by: FATOUMATA CONNELL MD on Mar 12 2025 10:19PM EST Elvira Olivas DO CT-PAMA Final Result * CT CERVICAL SPINE WO IVCON (03/12/2025 8:41 PM EDT) Anatomical Region Laterality Modality C-spine Computed Tomogra phy 03/12/2025 8:41 PM EDT Impressions 03/12/2025 9:23 PM EDT IMPRESSION: No acute fractures demonstrated in the cervical spine. Cervical spine degenerative changes with C5-6 disc space narrowing. Superintendent Commissary: [facility] Transcribe Date/Time: Mar 12 2025 9:09P Dictated by : DILSHAD AC MD This examination was interpreted and the report reviewed and electronically signed by: DILSHAD AC MD on Mar 12 2025 9:21PM EST Narrative 03/12/2025 9:23 PM EDT * * *Final Report* * * DATE OF EXAM: Mar 12 2025 8:41PM [facility] 0505 - CT CERVICAL SPINE WO IVCON / PROCEDURE REASON: fall * * * * Physician Interpretation * * * * EXAMINATION: CT CERVICAL SPINE WO IVCON CLINICAL HISTORY: fall TECHNIQUE: Spiral, high resolution axial unenhanced images were obtained from the skull base to the cervicothoracic junction with sagittal and coronal planar reconstructions. MQ: CTCSPWO_5 CT Radiation dose: Integrated CT Dose-Length Product (DLP) for this visit = 1017 mGy*cm CT Dose Reduction Employed: Automated exposure control(AEC) and iterative recon COMPARISON: None. RESULT: Counting reference: Craniocervical junction. Anatomic Variants: None. Laboratory Clerk (topogram) images: No additional findings. Alignment: No subluxation visualized. There appears be mild reversal of the cervical spine curvature. Craniocervical junction: Craniocervical junction is normal. Osseous structures/fracture: No evidence of a lytic or blastic process in the visualized spine. No evidence of acute or chronic fracture. Cervical soft tissues: The paraspinal soft tissues are within normal limits. Degenerative changes: There is mild to moderate osteophyte formation, with C5-6 disc space narrowing. Bilateral facet arthrosis is present Procedure Note Provider, [facility] [place] - 03/12/2025 * * *Final Report* * * DATE OF EXAM: Mar 12 2025 8:41PM [facility] 0505 - CT CERVICAL SPINE WO IVCON / PROCEDURE REASON: fall * * * * Physician Interpretation * * * * EXAMINATION: CT CERVICAL SPINE WO IVCON CLINICAL HISTORY: fall TECHNIQUE: Spiral, high resolution axial unenhanced images were obtained from the skull base to the cervicothoracic junction with sagittal and coronal planar reconstructions. MQ: CTCSPWO_5 CT Radiation dose: Integrated CT Dose-Length Product (DLP) for this visit = 1017 mGy*cm CT Dose Reduction Employed: Automated exposure control(AEC) and iterative recon COMPARISON: None. RESULT: Counting reference: Craniocervical junction. Anatomic Variants: None. Laboratory Clerk (topogram) images: No additional findings. Alignment: No subluxation visualized. There appears be mild reversal of the cervical spine curvature. Craniocervical junction: Craniocervical junction is normal. Osseous structures/fracture: No evidence of a lytic or blastic process in the visualized spine. No evidence of acute or chronic fracture. Cervical soft tissues: The paraspinal soft tissues are within normal limits. Degenerative changes: There is mild to moderate osteophyte formation, with C5-6 disc space narrowing. Bilateral facet arthrosis is present IMPRESSION IMPRESSION: No acute fractures demonstrated in the cervical spine. Cervical spine degenerative changes with C5-6 disc space narrowing. Superintendent Commissary: DEBBIE Transcribe Date/Time: Mar 12 2025 9:09P Dictated by : DILSHAD AC MD This examination was interpreted and the report reviewed and electronically signed by: DILSHAD AC MD on Mar 12 2025 9:21PM EST us Elvira Olivas DO CT-PAMA Final Result * CT BRAIN WO IVCON (03/12/2025 8:41 PM EDT) Anatomical Region Laterality Modality Head Computed Tomogra phy 03/12/2025 8:41 PM EDT Impressions 03/12/2025 9:16 PM EDT IMPRESSION: No acute intracranial hemorrhage identified. Superintendent Commissary: DEBBIE Transcribe Date/Time: Mar 12 2025 9:09P Dictated by : DILSHAD AC MD This examination was interpreted and the report reviewed and electronically signed by: DILSHAD AC MD on Mar 12 2025 9:14PM EST Narrative 03/12/2025 9:16 PM EDT * * *Final Report* * * DATE OF EXAM: Mar 12 2025 8:41PM [facility] 0504 - CT BRAIN WO IVCON / PROCEDURE REASON: fall, head strike * * * * Physician Interpretation * * * * EXAMINATION: CT BRAIN WO IVCON CLINICAL HISTORY: Fall. TECHNIQUE: Serial axial images without IV contrast were obtained from the vertex to the foramen magnum. MQ: CTBWO_3 CT Radiation dose: Integrated Dose-Length Product (DLP) for this visit = 1017 mGy*cm CT Dose Reduction Employed: Automated exposure control(AEC) and iterative recon COMPARISON: None. RESULT: Post-operative change: None. Acute change: No evidence of an acute infarct or other acute parenchymal process. Hemorrhage: No evidence of acute intracranial hemorrhage. ECASS hemorrhagic transformation score: Not Applicable Mass Lesion / Mass Effect: There is no evidence of an intracranial mass or extraaxial fluid collection. No significant mass effect. Chronic change: None apparent. Parenchyma: There is no significant volume loss. The brain parenchyma is otherwise within normal limits for age. Ventricles: The ventricles are within normal limits of size and configuration for age. Paranasal sinuses and skull base: The visualized paranasal sinuses are grossly clear. The skull base and imaged soft tissues are unremarkable. Localizer images: No additional findings. Procedure Note Provider, [facility] - 03/12/2025 * * *Final Report* * * DATE OF EXAM: Mar 12 2025 8:41PM [facility] 0504 - CT BRAIN WO IVCON / PROCEDURE REASON: fall, head strike * * * * Physician Interpretation * * * * EXAMINATION: CT BRAIN WO IVCON CLINICAL HISTORY: Fall. TECHNIQUE: Serial axial images without IV contrast were obtained from the vertex to the foramen magnum. MQ: CTBWO_3 CT Radiation dose: Integrated Dose-Length Product (DLP) for this visit = 1017 mGy*cm CT Dose Reduction Employed: Automated exposure control(AEC) and iterative recon COMPARISON: None. RESULT: Post-operative change: None. Acute change: No evidence of an acute infarct or other acute parenchymal process. Hemorrhage: No evidence of acute intracranial hemorrhage. ECASS hemorrhagic transformation score: Not Applicable Mass Lesion / Mass Effect: There is no evidence of an intracranial mass or extraaxial fluid collection. No significant mass effect. Chronic change: None apparent. Parenchyma: There is no significant volume loss. The brain parenchyma is otherwise within normal limits for age. Ventricles: The ventricles are within normal limits of size and configuration for age. Paranasal sinuses and skull base: The visualized paranasal sinuses are grossly clear. The skull base and imaged soft tissues areunremarkable. Localizer images: No additional findings. IMPRESSION IMPRESSION: No acute intracranial hemorrhage identified. Superintendent Commissary: [facility] Transcribe Date/Time: Mar 12 2025 9:09P Dictated by : DILSHAD AC MD This examination was interpreted and the report reviewed and electronically signed by: DILSHAD AC MD on Mar 12 2025 9:14PM EST Elvira Olivas DO CT-PAMA Final Result * EKG (03/12/2025 8:26 PM EDT) Ventricular Rate 78 BPM [facility] Atrial Rate 78 BPM [facility] P-R Interval 174 ms [facility] QRS Duration 92 ms [facility] QT Interval 394 ms [facility] QTC Calculation (Bazett) 449 ms [facility] Calculated P [place] 35 degrees [facility] Calculated R [place] -14 degrees [facility] Calculated T [place] 97 degrees [facility] 03/12/2025 8:26 PM EDT Impressions [facility] - 03/12/2025 9:22 PM EDT SINUS RHYTHM WITH OCCASIONAL PREMATURE VENTRICULAR COMPLEXES POSSIBLE LEFT ATRIAL ENLARGEMENT CANNOT RULE OUT ANTERIOR INFARCT , AGE UNDETERMINED T WAVE ABNORMALITY, CONSIDER LATERAL ISCHEMIA ABNORMAL ECG No Stemi Confirmed by ELVIRA OLIVAS DO ([id number]) on 03/12/2025 9:22:56 PM Narrative [facility] - 03/12/2025 9:22 PM EDT NAME : IZABELLA GOMEZ PID : [id number] : 1960 Gender : Female Race : ORD : Procedure Date : Mar 12 2025 20:26:52 Edit Date : Mar 12 2025 21:22:58 Diagnosis: SINUS RHYTHM WITH OCCASIONAL PREMATURE VENTRICULAR COMPLEXES POSSIBLE LEFT ATRIAL ENLARGEMENT CANNOT RULE OUT ANTERIOR INFARCT , AGE UNDETERMINED T WAVE ABNORMALITY, CONSIDER LATERAL ISCHEMIA ABNORMAL ECG No Stemi Confirmed by ELVIRA OLIVAS DO ([id number]) on 03/12/2025 9:22:56 PM Test Reason : Location : 1 : ER ED Overread By : ELVIRA OLIVAS DO Edited By : ELVIRA OLIVAS DO Referred By : , Acquired by : sc, us [facility] Provider [email or web address]_[facility] Final Result [facility] documented in this encounter Visit Diagnoses Diagnosis Laceration of left knee, initial encounter- Primary Fall, initial encounter Lightheadedness Dizziness and giddiness documented in this encounter Administered Medications Inactive Administered Medications - up to 3 most recent administrations Medication Order MAR Action Action Date Dose Rate Site acetaminophen 650 mg tab(s) (TYLENOL) 650 mg, ORAL, ONCE, 1 dose, On Sat03/12/25 at 2330 Given 03/12/2025 11:30 PM EDT 650 mg lidocaine 1%-EPINEPHrine 1:100,000 10 mL injection 10 mL, INTRADERMAL, ONCE, 1 dose, On Sat03/12/25 at 2130 Given by LIP 03/12/2025 10:24 PM EDT 10 mL Knee, Left documented in this encounter Active and Recently Administered Medications Times are shown in EDT. Scheduled Medication Order 03/11/2025 03/12/2025 03/13/2025 acetaminophen 650 mg tab(s) (TYLENOL) (COMPLETED) 650 mg, ORAL, ONCE, 1 dose, On Sat03/12/25 at 2330 2330 (Given - Provider: Nikky Alvares RN) lidocaine 1%-EPINEPHrine 1:100,000 10 mL injection (COMPLETED) 10 mL, INTRADERMAL, ONCE, 1 dose, On Sat03/12/25 at 2130 2224 (Given by LIP - Provide r: Nikky Alvares RN) documented in this encounter Care Teams [employer] Relationship Specialty Start Date End Date Santino Aviles MD [address] [place] [address] PCP - General Family Medicine 06/15/24 Sammy Apple DO [address] [place] [id number] Orthopedics 10/02/23 Catalina Watson MD [address] [address] Referring Dermatology 05/14/24 documented as of this encounter
--- OUTSIDE RECORDS SUMMARY | 2025-03-17 11:15 | XMS_ITS ---
Author Organization [facility] [place] Address [address] [place] [address] Care Team Providers Care Salesperson Furniture Name Role Phone Ricardo Aviles Primary Care Provider [phone] Allergies Allergen (clinical drug ingredient) Drug/Non Drug Allergy documented on EMR Reaction Allergy Type Onset Date Status Keflex hives Drug Allergy Active Penicillin hives Drug Allergy Active REASON FOR VISIT falls cant bend knee sutures Medications Medication SIG (Take, Route, Frequency, Duration) Notes Start Date End Date Status Ondansetron 4 MG 1 tablet on the tongue and allow to dissolve Orally qid 03/17/2025 Active Advair Diskus 500-50 MCG/ACT 1 puff Inhalation BID; Duration: 90 days Rinse after use Active Albuterol Sulfate HFA 108 (90 Base) MCG/ACT 2 puffs as needed for SOB Inhalation Q4H; Duration: 90 days Active Singulair 10 MG 1 tablet Orally Once a day; Duration: 90 days Patient wants to stop Accolate and go back to Singulair...... ............... ......... Active Spiriva Respimat 1.25 MCG/ACT 2 puffs Inhalation Once a day; Duration: 90 days Active Omeprazole 40 MG 1 capsule 30 minutes before morning meal Orally Once a day Active Ozempic (1 MG/DOSE) 4 MG/3ML as directed Subcutaneous Active Rinvoq 15 MG 1 tablet Orally Once a day Active Fexofenadine HCl 60 MG 1 tablet Orally Twice a day Active Fluticasone Propionate 50 MCG/ACT Nasal; Duration: 30 Days Active Ipratropium-Albuterol 0.5-2.5 (3) MG/3ML 3mL Inhalation QiD; Duration: 90 days Active Levothyroxine Sodium 137 MCG 1 tablet in the morning on an empty stomach Orally Once a day; Duration: 30 days Active Liothyronine Sodium 5 MCG TAKE 1 TABLET BY MOUTH EVERY DAY ON EMPTY STOMACH FOR 30 DAYS; Duration: 30 Active Dupixent 300 MG/2ML Subcutaneous; Duration: 14 Days Active traMADol HCl 50 MG 1 tablet as needed Orally tid; Duration: 7 days 03/17/2025 Active CeleBREX 200 MG 1 capsule with food Orally Once a day Active Cyclobenzaprine HCl 10 MG 1 tablet Orally tid; Duration: 30 days 06/17/2024 Active Social History Tobacco Use: Social History Observation Description Date Details (start date - stop date) Never Smoker NA - NA Tobacco Control (Standard) Question Answer Notes Tobacco use: Nonsmoker AUDIT-C (Standard) Question Answer Notes Did you have a drink containing alcohol in the p ast year? No Points 0 Interpretation Negative Problems Problem Type SNOMED Code ICD Code Onset Dates Problem Status W/U Status Risk Notes Problem Laceration of knee without complication, unspecified laterality, subsequent encounter (S81.019D) Active confirmed Vital Signs Weight 175.0 lbs 03/17/2025 Height 57 in 03/17/2025 Blood pressure systolic 128 mm Hg 03/17/20 25 Blood pressure diastolic 80 mm Hg 025 BMI 37.87 kg/m2 03/17/2025 Encounters Encounter Location Date Provider Diagnosis [facility] [address] [place] [address] 03/17/2025 Ricardo Aviles Laceration of knee without complication, unspecified laterality, subsequent encounter S81.019D Assessments Encounter Date Diagnosis (ICD Code) Assessment Notes Treatment Notes Treatment Clinical Notes Section Notes 03/17/2025 Laceration of knee without complication, unspecified laterality, subsequent encounter (ICD-10 - S81.019D) Plan Of Treatment Medication Medication Name Sig Start Date Stop Date Notes Ondansetron 4 MG 1 tablet on the tong ue and allow to dissolve Orally qid 03/17/2025 traMADol HCl 50 MG 1 tablet as needed O rally tid; Duration: 7 days 03/17/2025 Next Appt Details Provider Name:Ricardo Arteagaute, 03:15:00 PM, [address] [place], [address], Progress Notes * Izabella GOMEZ ADOB:1960 (64 yo F)Acc No.[id number]:03/17/2025 Progress Note Patient: Izabella Manning LT Provider: Holger Aviles ([facility])MD :1960 A ge:64 Y S ex:Female Date:03/17/2025 Address:[address] [place] [address], [id number] Check In:03:10 PM ESTCheck O ut:04:02 PM EST Subjective: * Chief Complaints: * F alls cant bend knee sutures * HPI: G eneral: Trippped -and fell - cutting knee 5 days ago -. 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 Modified On:06/04/2023 Status:confirmed R94.2 Decreased diffusion capacity of lung Modified On:06/04/2023 Status:confirmed J45.901 Acute asthma exacerb ation Modified On:11/16/2022 Status:confirmed E03.9 Hypothyroidism Modified On:11/16/2022U Status:confirmed E11.9 Type 2 diabetes beatriz itus Modified On:11/16/2022 Status:confirmed A49.02 MRSA (methicillin re sistant Staphylococcus aureus) Modified On:05/22/2024U Status:confirmed K21.9 GERD (gastroesophage al reflux disease) Modified On:05/22/2024 Status:confirmed J45.909 Asthma Modified On:05/22/2024 Status:confirmed Z00.00 Well adult Modified On:05/25/2024U Status:confirmed R00.0 Inappropriate sinus tachycardia Modified On:09/30/2024 Status:confirmed 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, left Modified On:02/22/2025 Status:confirmed M54.16 Lumbar radiculopathy Modified On:02/22/2025 Status:confirmed S81.019D Laceration of knee w ithout complication, unspecified laterality, subsequent encounter Modified On:03/17/2025 Status:confirmed * Medical History: * Surgical History: C holecystectomy tonsillectomy hysterectomy, vaginal Tendon Repair-Left Foot Lesion Excision 06/14/2014rthroscopic knee surgery-Left right knee replacement EGD 05/03/2022houlder replacement-left 05/23shoulder arthroscopy-left 04/14/2024 * Hospitalization/Major Diagno stic Procedure: E sophageal Obstruction due to food bolus 2Asthma Exacerbation 3Asthma Exacerbation-[facility] [place] 4Diarrhea/Nausea/Vomiting-[facility] 01/08/2024Sepsis/Cellulitis-[facility] 01/20/2024 * Family History: F ather: , aneurysm, blood clot, diagnosed with Unspecified heart disease. M other: alive, esophageal cancer, diagnosed with Other malignant neoplasm of unspecified site. S ister(s): alive. P aternal Grandfather: aneurysm, blood clot. 3 sister(s) . 2 son(s) , 1 daughter(s) . . * Social History: T obacco Use: T obacco Control (Standard) T obacco use: N onsmoker Electronic Cigarette use C urrent user N o D rug/Alcohol: A LJ-C (Standard) D id you have a drink containing alcohol in the past year? N o P oints 0 I nterpretation N egative * Medications: T akingAdvair Diskus(Fluticasone-Salmeterol) 500-50 MCG/ACT Aerosol Powder Breath Activated 1 puff Inhalation BID Rinse after useAlbuterol Sulfate HFA 108 (90 Base) MCG/ACT Aerosol Solution 2 puffs as needed for SOB Inhalation Q4H CeleBREX(Celecoxib) 200 MG Capsule 1 capsule with food Orally Once a day Cyclobenzaprine HCl 10 MG Tablet 1 tablet Orally tid Dupixent(Dupilumab) 300 MG/2ML Solution Auto-injector Subcutaneous Fexofenadine HCl 60 MG Tablet 1 tablet Orally Twice a day Fluticasone Propionate 50 MCG/ACT Suspension Nasal Ipratropium-Albuterol 0.5-2.5 (3) MG/3ML Solution 3mL Inhalation QiD Levothyroxine Sodium 137 MCG Tablet 1 tablet in the morning on an empty stomach Orally Once a day Liothyronine Sodium 5 MCG Tablet TAKE 1 TABLET BY MOUTH EVERY DAY ON EMPTY STOMACH FOR 30 DAYS Omeprazole 40 MG Capsule Delayed Release 1 capsule 30 minutes before morning meal Orally Once a day Ozempic (1 MG/DOSE)(Semaglutide (1 MG/DOSE)) 4 MG/3ML Solution Pen-injector as directed Subcutaneous Rinvoq(Upadacitinib ER) 15 MG Tablet Extended Release 24 Hour 1 tablet Orally Once a day Singulair(Montelukast Sodium) 10 MG Tablet 1 tablet Orally Once a day , Notes to Pharmacist: Patient wants to stop Accolate and go back to Singulair..............................Spiriva Respimat(Tiotropium [place] Monohydrate) 1.25 MCG/ACT Aerosol Solution 2 puffs Inhalation Once a day Taking Advair Diskus(Fluticasone-Salmeterol) 500-50 MCG/ACT Aerosol Powder Breath Activated 1 puff Inhalation BID Rinse after useTaking Albuterol Sulfate HFA 108 (90 Base) MCG/ACT Aerosol Solution 2 puffs as needed for SOB Inhalation Q4H Taking CeleBREX(Celecoxib) 200 MG Capsule 1 capsule with food Orally Once a day Taking Cyclobenzaprine HCl 10 MG Tablet 1 tablet Orally tid Taking Dupixent(Dupilumab) 300 MG/2ML Solution Auto-injector Subcutaneous Taking Fexofenadine HCl 60 MG Tablet 1 tablet Orally Twice a day Taking Fluticasone Propionate 50 MCG/ACT Suspension Nasal Taking Ipratropium-Albuterol 0.5-2.5 (3) MG/3ML Solution 3mL Inhalation QiD Taking Levothyroxine Sodium 137 MCG Tablet 1 tablet in the morning on an empty stomach Orally Once a day Taking Liothyronine Sodium 5 MCG Tablet TAKE 1 TABLET BY MOUTH EVERY DAY ON EMPTY STOMACH FOR 30 DAYS Taking Omeprazole 40 MG Capsule Delayed Release 1 capsule 30 minutes before morning meal Orally Once a day Taking Ozempic (1 MG/DOSE)(Semaglutide (1 MG/DOSE)) 4 MG/3ML Solution Pen-injector as directed Subcutaneous Taking Rinvoq(Upadacitinib ER) 15 MG Tablet Extended Release 24 Hour 1 tablet Orally Once a day Taking Singulair(Montelukast Sodium) 10 MG Tablet 1 tablet Orally Once a day , Notes to Pharmacist: Patient wants to stop Accolate and go back to Singulair..............................Taking Spiriva Respimat(Tiotropium [place] Monohydrate) 1.25 MCG/ACT Aerosol Solution 2 puffs Inhalation Once a day DiscontinuedALPRAZolam 0.25 MG Tablet 1 tablet Orally tid F41.9Benzonatate 200 MG Capsule 1 capsule Orally Three times a day Budesonide 0.5 MG/2ML Suspension 1 mL Inhalation Twice a day Medication List reviewed and reconciled with the patientDiscontinued ALPRAZolam 0.25 MG Tablet 1 tablet Orally tid F41.9Discontinued Benzonatate 200 MG Capsule 1 capsule Orally Three times a day Discontinued Budesonide 0.5 MG/2ML Suspension 1 mL Inhalation Twice a day Medication List reviewed and reconciled with the patient * Allergies: K eflex: hives - AllergyPenicillin: hives - Allergyno[Allergies Verified] Objective: * Vitals: W t:175.0lbs, Ht: 57 in, BP:128/80mm Hg, BMI:37.87Index, Ht-cm: 144.78 cm, Wt-k.38 kg. Assessment: * Assessment: 1. L aceration of knee without complication, unspecified laterality, subsequent encounter - S81.019D (Primary) Plan: * Treatment: * Procedure Codes: * Preventive Medicine: Screenings/Counseling: B KS ACTION PLAN Above Normal BMI Follow-up D ietary management education, guidance, and counseling * * Sign off status: Completed Visit Status: C HK (Check Out) true * Provider: Holger Aviles ([facility])MD Date: 0 03/17/2025 Generated for Sonia morrison/Court/Benransmitting on: 0 03/22/2025 12:26 PM EDT History and Physical Notes * HPI (History of Present Illness) Category Sub-Category Detail Notes Category Not es General Trippped -and fell - cutting knee 5 days ago -
--- OUTSIDE RECORDS SUMMARY | 2025-03-19 11:15 | XMS_ITS ---
Author Organization The [facility] in [place] Address [address] [place] [address] Care Team Providers Care Anesthesiologist Assistant Certified Name Role Phone Ricardo Aviles Primary Care Provider Allergies Allergen (clinical drug ingredient) Drug/Non Drug Allergy documented on EMR Reaction Allergy Type Onset Date Status Keflex hives Drug Allergy Active Penicillin hives Drug Allergy Active REASON FOR VISIT recheck knee, left knee, fall past saturday, signed CSA Medications Medication SIG (Take, Route, Frequency, Duration) Notes Start Date End Date Status Fluticasone Propionate 50 MCG/ACT Nasal; Duration: 30 Days Active Dupixent 300 MG/2ML Subcutaneous; Duration: 14 Days Active Fexofenadine HCl 60 MG 1 tablet Orally Twice a day Active Cyclobenzaprine HCl 10 MG 1 tablet Orally tid; Duration: 30 days 06/17/2024 Active Doxycycline Monohydrate 100 MG 1 tablet Orally bid; Duration: 10 days 03/18/2025 Active Advair Diskus 500-50 MCG/ACT 1 puff Inhalation BID; Duration: 90 days Rinse after use Active Albuterol Sulfate HFA 108 (90 Base) MCG/ACT 2 puffs as needed for SOB Inhalation Q4H; Duration: 90 days Active traMADol HCl 50 MG 1 tablet as needed Orally tid; Duration: 7 days 03/17/2025 Active Spiriva Respimat 1.25 MCG/ACT 2 puffs Inhalation Once a day; Duration: 90 days Active CeleBREX 200 MG 1 capsule with food Orally Once a day Active Omeprazole 40 MG 1 capsule 30 minutes before morning meal Orally Once a day Active Singulair 10 MG 1 tablet Orally Once a day; Duration: 90 days Patient wants to stop Accolate and go back to Singulair...... ............... ......... Active Ozempic (1 MG/DOSE) 4 MG/3ML as directed Subcutaneous Active Rinvoq 15 MG 1 tablet Orally Once a day Active Ondansetron 4 MG 1 tablet on the tongue and allow to dissolve Orally qid 03/17/2025 Active Liothyronine Sodium 5 MCG TAKE 1 TABLET BY MOUTH EVERY DAY ON EMPTY STOMACH FOR 30 DAYS; Duration: 30 Active levoFLOXacin 750 MG 1 tablet Orally Once a day; Duration: 10 day(s) 03/18/2025 Active Levothyroxine Sodium 137 MCG 1 tablet in the morning on an empty stomach Orally Once a day; Duration: 30 days Active Ipratropium-Albuterol 0.5-2.5 (3) MG/3ML 3mL Inhalation QiD; Duration: 90 days Active Social History Tobacco Use: Social History Observation Description Date Details (start date - stop date) Never Smoker NA - NA Tobacco Control (Standard) Question Answer Notes Tobacco use: Nonsmoker Vital Signs Weight 173.6 lbs 03/19/2025 Height 57 in 03/19/2025 Blood pressure systolic 102 mm Hg 03/19/20 25 Blood pressure diastolic 62 mm Hg 025 BMI 37.56 kg/m2 03/19/2025 Encounters Encounter Location Date Provider Diagnosis [facility] [address] [place] [address] 03/19/2025 Ricardo Aviles Laceration of knee without complication, unspecified laterality, subsequent encounter S81.019D Assessments Encounter Date Diagnosis (ICD Code) Assessment Notes Treatment Notes Treatment Clinical Notes Section Notes 03/19/2025 Laceration of knee without complication, unspecified laterality, subsequent encounter (ICD-10 - S81.019D) Plan Of Treatment Next Appt Details Provider Name:Ricardo Aviles, 03:15:00 PM, [address] [place], [address], Medications Administered Medication Instructions Date of Administration Dosage Notes Ceftriaxone 1 gram 03/19/2025 1 g Progress Notes * ALT, Izabella ADOB:1960 (64 yo F)Acc No.[id number]:03/19/2025 UNLOCKED PROGRESS NOTE Progress Note Patient: Izabella Manning LT Provider: Holger Aviles ([facility])MD :1960 A ge:64 Y S ex:Female Date:03/19/2025 Address:[address] [place], [place] [id number] Check In:03:11 PM ESTCheck O ut:04:02 PM EST Subjective: * Chief Complaints: * 1 . Recheck knee. 2. Left knee. 3. Fall past saturday. 4. signed CSA. * HPI: G eneral: Lefknee woth cellulitis def worse than befoire - she sayud is some better today. * Medical History: M ultiple pulmonary nodules, Severe persistent asthma, uncomplicated, Diabetes mellitus type 2, controlled, Hypothyroidism, Diverticulosis, History of pulmonary embolism, History of COVID-19, Skin cancer, Rheumatoid arthritis, snf (current) use of inhaled steroids, terminologist (current) use of immunosuppressive biologic. * Surgical History: C holecystectomy , tonsillectomy , hysterectomy, vaginal , Tendon Repair-Left Foot , Lesion Excision 06/14/2014, arthroscopic knee surgery-Left , right knee replacement , EGD 05/03/2022, shoulder replacement-left 05/23, shoulder arthroscopy-left 04/14/2024. * Hospitalization/Major Diagno stic Procedure: E sophageal Obstruction due to food bolus 05/03/2022, Asthma Exacerbation 09/15/2022, Asthma Exacerbation-[facility] 01/04/2024, Diarrhea/Nausea/Vomiting-[facility] 01/08/2024, Sepsis/Cellulitis-[facility] 01/20/2024. * Family History: F ather: , aneurysm, [...] Cigarette use C urrent user N o * Medications: T aking Advair Diskus(Fluticasone-Salmeterol) 500-50 MCG/ACT Aerosol Powder Breath Activated 1 puff Inhalation BID Rinse after use, Taking Albuterol Sulfate HFA 108 (90 Base) MCG/ACT Aerosol Solution 2 puffs as needed for SOB Inhalation Q4H , Taking CeleBREX(Celecoxib) 200 MG Capsule 1 capsule with food Orally Once a day , Taking Cyclobenzaprine HCl 10 MG Tablet 1 tablet Orally tid , Taking Doxycycline Monohydrate 100 MG Tablet 1 tablet Orally bid , Taking Dupixent(Dupilumab) 300 MG/2ML Solution Auto-injector Subcutaneous , Taking Fexofenadine HCl 60 MG Tablet 1 tablet Orally Twice a day , Taking Fluticasone Propionate 50 MCG/ACT Suspension Nasal , Taking Ipratropium-Albuterol 0.5-2.5 (3) MG/3ML Solution 3mL Inhalation QiD , Taking levoFLOXacin 750 MG Tablet 1 tablet Orally Once a day , Taking Levothyroxine Sodium 137 MCG Tablet 1 tablet in the morning on an empty stomach Orally Once a day , Taking Liothyronine Sodium 5 MCG Tablet TAKE 1 TABLET BY MOUTH EVERY DAY ON EMPTY STOMACH FOR 30 DAYS , Taking Omeprazole 40 MG Capsule Delayed Release 1 capsule 30 minutes before morning meal Orally Once a day , Taking Ondansetron 4 MG Tablet Disintegrating 1 tablet on the tongue and allow to dissolve Orally qid , Taking Ozempic (1 MG/DOSE)(Semaglutide (1 MG/DOSE)) 4 MG/3ML Solution Pen-injector as directed Subcutaneous , Taking Rinvoq(Upadacitinib ER) 15 MG Tablet Extended Release 24 Hour 1 tablet Orally Once a day , Taking Singulair(Montelukast Sodium) 10 MG Tablet 1 tablet Orally Once a day , Notes to Pharmacist: Patient wants to stop Accolate and go back to Singulair.............................., Taking Spiriva Respimat(Tiotropium Alcove Monohydrate) 1.25 MCG/ACT Aerosol Solution 2 puffs Inhalation Once a day , Taking traMADol HCl 50 MG Tablet 1 tablet as needed Orally tid , Medication List reviewed and reconciled with the patient * Allergies: K eflex: hives - Allergy, Penicillin: hives - Allergy. Objective: * Vitals: W t:173.6lbs, Ht: 57 in, BP:102/62mm Hg, BMI:37.56Index, Wt-k.74 kg. * Examination: A bdomen Exam:: L eft knee cellulits. Assessment: * Assessment: 1. L aceration of knee without complication, unspecified laterality, subsequent encounter - S81.019D (Primary) Plan: * Treatment: * Therapeutic Injections: Ceftriaxone 1 gram : 1 g (Route: Intramuscular) given by LULÚ Boateng on right gluteus (Laceration of knee without complication, unspecified laterality, subsequent encounter) * Procedure Codes: 9 6372 THERAP.INJ. OF MED. INTRAMUSCULAR OR SUBCUTANEOUS, J0696 IM ROCEPHIN per 250 mg, Units: 4.00 * Preventive Medicine: Screenings/Counseling: B MO ACTION PLAN Above Normal BMI Follow-up D ietary management education, guidance, and counseling F ALL RISK SCREENING Fall Risk Assessment: N o falls in the past year * * Electronic signature of Ricardo Aviles MD, [id number] on 03/22/2025 at 12:27 PM EDT Sign off status: Pending Visit Status: C HK (Check Out) * Provider: Holger Aviles ([facility])MD Date: 0 03/19/2025 Generated for Vinayaki ng/Court/eTransmitting on: 0 03/22/2025 12:27 PM EDT History and Physical Notes * HPI (History of Present Illness) Category Sub-Category Detail Notes Category Not es General Lefknee woth ce llulitis def worse than befoire - she sayud is some better today Examination Category Sub-Category Detail Notes Category Not es Abdomen Exam: Left knee cell ulits
--- OUTSIDE RECORDS SUMMARY | 2025-03-22 12:26 | XMS_ITS | Encounter Summary ---
Author Organization [facility] Address [address] [place] [address] Care Team Providers Care Leasing Coordinator Name Role Phone AppleSammy Oswald DO Unavailable [phone] Marisela Falk APRN.[facility] Primary Care Provider Catalina Watson MD Unavailable [phone] Santino Aviles MD Primary Care Provider [phone] Source Comments In the event this information is protected by the Federal Confidentiality of Alcohol and Drug AbusePatient Records regulations: The Federal rules restrict any use of the information to criminally investigate or prosecute any alcohol or drug abuse patient.[facility] Encounter Details Date Type Department Care Team (Late st Contact Info) Description 12/27/2023 Patient Msg Pre Anesthesia [address] [place] [address] Sammy Cates APRN.[employer] [facility] [address] [place], [place] [id number] Dr. Muller's Instructions Social History Tobacco Use [...] is lower risk 5 10/01/2023 Data from: https://www.neighborhoodatlas.[facility] /. Last address used for calculation [address] [address] 10/01/2023 Comments No Sex [...] 9:00 AM EDT Office Visit Rheumatology [address] [place] [address] Shanna Muller MD [address] [facility] [place] [place] [address] RTC after DXA- 6-12 mo f/u documented as of this encounter Visit Diagnoses Not on filedocumented in this encounter Care Teams Leasing Coordinator Relationship Specialty Start Date End Date Marisela Falk APRN.[employer] [facility] [address] [place] [address] PCP - General 12/23/23 06/14/24 Santino Aviles MD [address] [place] [address] PCP - General Family Medicine 06/15/24 Sammy Apple DO [address] [place] [address] Orthopedics 10/02/23 Catalina Waston MD [address] [address] Referring Dermatology 05/14/24 documented as of this encounter
--- OUTSIDE RECORDS SUMMARY | 2025-03-22 12:26 | XMS_ITS | Clinical Summary ---
Author Organization [facility] Address [facility] [place] [address] Care Team Providers Care Licensed Customs Broker Name Role Phone Tiffanie Guerrero MD Primary Care Provider [phone] Allergies Active Allergy Reactions Criticality Noted Date [...] series) 11/04/2034 Medical Devices Implanted Type Area Horse Stud Worker Device Identifier Shelf Expiration Date Model / Serial / Lot Graft 5cc Bone Biocomposite Strip Augmatrix - [id number] Implanted:Qty: 1 on 09/14/2016 by Shante Rayo DPM at [facility] Graft Left: Foot [employer] 01/28/2018 [id number] / / [id number] Allopure Bicortical 8mm Jimenez Implanted:Qty: 1 on 05/24/2015 by Shante Rayo DPM at [facility] Left: Foot [employer] 06/01/2019 [id number] / / [id number] Augmatrix Biocomposite Bone Graft Strip - 5cc Implanted:Qty: 1 on 05/24/2015 by Shante Rayo DPM at [facility] Left: Foot 01/21/2018 [id number] / / [id number] Screw 3.5 X 20mm Prabhu Lock Ortholoc 3dsi - [id number] Implanted:Qty: 2 on 05/24/2015 by Shante Rayo DPM at [facility] Left: Foot [employer] MED [id number] / / Screw 3.5 X 24mm Prabhu Lock Ortholoc 3dsi - [id number] Implanted:Qty: 1 on 05/24/2015 by Shante Rayo DPM at [facility] Left: Foot [employer] [id number] / / Plate 20mm 2hl Claw Ii - [id number] Implanted:Qty: 2 on 05/24/2015 by Shante Rayo DPM at [facility] Left: Foot [employer] [id number] / / Edge Lock Plate Implanted:Qty: 1 on 09/14/2016 by Shante Rayo DPM at [facility] Left: Foot [employer] [id number] / / Locking Screw Implanted:Qty: 1 on 09/14/2016 by Shante Rayo DPM at [facility] Left: Foot [employer] [id number] / / Nonlock Screw Implanted:Qty: 1 on 09/14/2016 by Shante Rayo DPM at [facility] Left: Foot [employer] MED [id number] / / Sht Screw Implanted:Qty: 1 on 09/14/2016 by Shante Rayo DPM at [facility] Left: Foot [employer] MED [id number] / / Plate 2mm Lapidus Flat Ortholoc 3di Hallux - [id number] Implanted:Qty: 1 on 09/14/2016 by Shante Rayo DPM at [facility] Left: Foot [employer] MED [id number] / / Screw 3.5 X 20mm Lock Ortholoc 3di - [id number] Implanted:Qty: 3 on 09/14/2016 by Shante Rayo DPM at [facility] Left: Foot [employer] MED [id number] / / Screw 3.5 X 28mm Lock Ortholoc 3di - [id number] Implanted:Qty: 1 on 09/14/2016 by Shante Rayo DPM at [facility] Left: Foot [place] [employer] [id number] / / Explanted Type Area Horse Stud Worker Device Identifier Shelf Expiration Date Model / Serial / Lot 3.5mm X 34mm Locking Screw Explanted:Qty: 1 on 05/24/2015 at [facility] Left: Foot [employer] [employer] [id number] / / Claw Plate Explanted:Qty: 1 on 10/28/2015 at [facility] Description:plate x 2 screws x 4 Plate 15mm 2hl Claw Ii - [id number] Implanted:Qty: 1 on 05/24/2015 by Shante Rayo DPM at [facility] Explanted:Qty: 1 on 09/14/2016 by Shante Rayo DPM at [facility] Left: Foot [employer] [employer] [id number] / / 3.5mm X 18mm Locking Screw Implanted:Qty: 1 on 05/24/2015 by Shante Rayo DPM at [facility] Explanted:Qty: 1 on 09/14/2016 by Shante Rayo DPM at [facility] Left: [facility] MED [id number] / / 3.5mm X 14mm Locking Screw Implanted:Qty: 2 on 05/24/2015 by Shante Rayo DPM at [facility] Explanted:Qty: 2 on 09/14/2016 by Shante Rayo DPM at [facility] Left: Foot [employer] [employer] [id number] / / Plate Explanted:Qty: 2 on 05/16/2017 by Shante Rayo DPM at [facility] Left: [facility] Screws Explanted:Qty: 7 on 05/16/2017 by Shante Rayo DPM at [facility] Left: [facility] Insurance Advance Directives For more information, please contact: [phone] * Full Code (Latest Code Status on File) Date Activated Date Inactivated Comments 05/24/2015 3:31 PM 05/25/2015 12:37 PM Care Teams Licensed Customs Broker Relationship Specialty Start Date End Date Tiffanie Guerrero MD [address] [place] [address] PCP - General 12/15/12
--- OUTSIDE RECORDS SUMMARY | 2025-03-22 12:26 | XMS_ITS | Encounter Summary ---
Author Organization [facility] Address [address] [place] [address] Care Team Providers Care Heel Pricker Name Role Phone Sammy Apple DO Unavailable [phone] Marisela Falk APRN.[facility] Primary Care Provider Catalina Watson MD Unavailable [phone] Santino Aviles MD Primary Care Provider [phone] Source Comments In the event this information is protected by the Federal Confidentiality of Alcohol and Drug AbusePatient Records regulations: The Federal rules restrict any use of the information to criminally investigate or prosecute any alcohol or drug abuse patient.[facility] Encounter Details Date Type Department Care Team (Late st Contact Info) Description 02/03/2024 [place] [address] Provider, [facility] Important information about your scheduled [...] is lower risk 5 10/01/2023 Data from: https://www.neighborhoodatlas.medicine.[facility] /. Last address used for calculation [address] 10/01/2023 Comments No Sex [...] Date Author No 01/27/2014 9:53 AM Naomi Paytno MA documented in this encounter Plan of Treatment Upcoming Encounters Date Type Department Care Team (Late st Contact Info) Description 02/14/2026 9:00 AM EDT Office Visit Rheumatology [address] [place] [address] Shanna Muller MD [address] [address] [address] RTC after DXA- 6-12 mo f/u documented as of this encounter Visit Diagnoses Not on filedocumented in this encounter Care Teams Heel Pricker Relationship Specialty Start Date End Date Marisela Falk APRN.[employer] FOR[employer] HELPER [address] [place] [address] PCP - General 12/23/23 06/14/24 Santino Aviles MD [address] [place] [address] PCP - General Family Medicine 06/15/24 Sammy Apple DO [address] [place] [address] Orthopedics 10/02/23 Catalina Watson MD [address] [facility] [address] [place] [address] Referring Dermatology 05/14/24 documented as of this encounter
--- OUTSIDE RECORDS SUMMARY | 2025-03-22 12:26 | XMS_ITS | Clinical Summary ---
Author Organization [facility] [facility] Address [id number] [address] [place] [address] Care Team Providers Care Bell Tier Name Role Phone Tiffanie Guerrero MD Primary Care Provider [phone] Allergies Active Allergy Reactions Criticality Noted Date [...] Not on file Insurance ANTHEM Care Teams Bell Tier Relationship Specialty Start Date End Date Tiffanie Guerrero MD PCP - General Family Medicine 10/06/18
--- OUTSIDE RECORDS SUMMARY | 2025-03-22 12:26 | XMS_ITS | Encounter Summary ---
Author Organization [facility] Address [address] [place] [address] Care Team Providers Care Adviser Sales Name Role Phone Sammy Apple Oswald DO Unavailable [phone] Catalina Watson MD Unavailable [phone] Santino Aviles MD Primary Care Provider [phone] Source Comments In the event this information is protected by the Federal Confidentiality of Alcohol and Drug AbusePatient Records regulations: The Federal rules restrict any use of the information to criminally investigate or prosecute any alcohol or drug abuse patient.[facility] Encounter Details Date Type Department Care Team (Late st Contact Info) Description 03/13/2025 Patient Update [facility] [address] [place] [address] Elvira Olivas DO [address] [place] [address] Social History Tobacco Use Types Packs/Day Years [...] 5 03/13/2025 Data from: https://www.neighborhoodatlas.medicine.[facility].e du/. Last address used for calculation [id number] 03/13/2025 Comments No [...] 9:00 AM EDT Office Visit Rhe[facility]ology [address] [facility] [place] [address] Shanna Muller MD [address] [place], [place] [phone] RTC after DXA- 6-12 mo f/u documented as of this encounter Visit Diagnoses Not on filedocumented in this encounter Care Teams Adviser Sales Relationship Specialty Start Date End Date Santino Aviles MD [address] [place] [address] PCP - General Family Medicine 06/15/24 Sammy Apple DO [address] [place] [address] Orthopedics 10/02/23 Catalina Watson MD [address] [facility] [address] [place] [address] Referring Dermatology 05/14/24 documented as of this encounter
--- OUTSIDE RECORDS SUMMARY | 2025-03-22 12:26 | XMS_ITS | Encounter Summary ---
Author Organization [facility] Address [address] [place] [address] Care Team Providers Care Dish Maker Name Role Phone Silvestre Tamayo MD Primary Care Provider [phone] Marisela Falk RESTAURANT ASSOCIATE Unavailable Reason for Visit * Reason Onset Date Comments Care Coordination 01/30/2024 Encounter Details Date Type Department Care Team (Late st Contact Info) Description 01/30/2024 Telephone [facility] [address] [facility] [address] [place] [phone] Jessenia Liriano LPN [address] [facility] [place] [address] Care Coordination Social History Tobacco Use Types [...] Allergy [address] [place] [address] Theodore Arias MD [address] [place] [address] documented as of this encounter Visit Diagnoses Not on filedocumented in this encounter Care Teams Dish Maker Relationship Specialty Start Date End Date Silvestre Tamayo MD PCP - General Family Medicine 03/05/23 03/12/24 Marisela Falk NP [address] [place] [address] Referring Physician Family Medicine 03/13/24 documented as of this encounter
--- OUTSIDE RECORDS SUMMARY | 2025-03-22 12:26 | XMS_ITS | Encounter Summary ---
Author Organization [facility] Address [address] [place] [address] Care Team Providers Care Over The Road Driver Name Role Phone Sammy Apple Oswald DO Unavailable [phone] Catalina Watson MD Unavailable [phone] Santino Aviles MD Primary Care Provider [phone] Source Comments In the event this information is protected by the Federal Confidentiality of Alcohol and Drug AbusePatient Records regulations: The Federal rules restrict any use of the information to criminally investigate or prosecute any alcohol or drug abuse patient.[facility] Encounter Details Date Type Department Care Team (Late st Contact Info) Description 02/10/2025 Patient [facility] HB-3 [address] [place] [address] Britt Gottlieb RPh At your next appointment, choose [facility] Social History Tobacco Use Types [...] is lower risk 5 10/01/2023 Data from: https://www.neighborhoodatlas.[facility] /. Last address used for calculation [address] 10/01/2023 Comments No Sex [...] 9:00 AM EDT Office Visit Rheumatology 57[address] [facility] [place] [address] Shanna Muller MD [address] [facility] [place] [address] RTC after DXA- 6-12 mo f/u documented as of this encounter Visit Diagnoses Not on filedocumented in this encounter Care Teams Over The Road Driver Relationship Specialty Start Date End Date Santino Aviles MD [address] [place] [address] PCP - General Family Medicine 06/15/24 Sammy Apple DO [address] [place] [address] Orthopedics 10/02/23 Catalina Watson MD [address] [facility] 350 [place] [address] Referring Dermatology 05/14/24 documented as of this encounter
--- OUTSIDE RECORDS SUMMARY | 2025-03-22 12:26 | XMS_ITS | Encounter Summary ---
Author Organization [facility] Address [id number] [address] [place] [address] Care Team Providers Care Vehicle Maintenance Supervisor Name Role Phone Tiffanie Guerrero MD Primary Care Provider [phone] Encounter Details Date Type Department Care Team (Late st Contact Info) Description 09/27/2023 Orders Only [facility] [place] [address] External, Scanning Provider Pain (Primary [...] pain documented in this encounter Care Teams Vehicle Maintenance Supervisor Relationship Specialty Start Date End Date Tiffanie Guerrero MD PCP - General Family Medicine 10/06/18 documented as of this encounter
--- OUTSIDE RECORDS SUMMARY | 2025-03-22 12:26 | XMS_ITS | Encounter Summary ---
Author Organization [facility] Address [address] [place] [address] Care Team Providers Care Biscuitware Brusher Name Role Phone Silvestre Tamayo MD Primary Care Provider [phone] Marisela Falk ENTERPRISE ENGINEER Unavailable Encounter Details Date Type Department Care Team (Late st Contact Info) Description 12/27/2023 Telephone [facility] [address] [facility] [address] [address] [place] [address] John Freed MA Social History Tobacco Use [...] at this time. Pt uses [facility] [place]. Please review and advise thank you documented in this encounter Plan of Treatment Upcoming Encounters Date Type Department Care Team (Late st Contact Info) Description 01/31/2026 11:40 AM EDT Office Visit [facility] [address] [phone] Theodore Arias MD [address] [address] documented as of this encounter Visit Diagnoses Diagnosis Acute bronchitis, unspecified organism documented in this encounter Care Teams Biscuitware Brusher Relationship Specialty Start Date End Date Silvestre Tamayo MD PCP - General Family Medicine 03/05/23 03/12/24 Marisela Falk NP [address] [place] [address] Referring Physician Family Medicine 03/13/24 documented as of this encounter
--- OUTSIDE RECORDS SUMMARY | 2025-03-22 12:26 | XMS_ITS | Encounter Summary ---
Author Organization [facility] Address [address] [place] [address] Care Team Providers Care Door Repairman Name Role Phone Sammy Apple DO Unavailable [phone] Marisela Falk APRN.[facility] Primary Care Provider Catalina Watson MD Unavailable [phone] Santino Aviles MD Primary Care Provider [phone] Source Comments In the event this information is protected by the Federal Confidentiality of Alcohol and Drug AbusePatient Records regulations: The Federal rules restrict any use of the information to criminally investigate or prosecute any alcohol or drug abuse patient.[facility] Encounter Details Date Type Department Care Team (Late st Contact Info) Description 04/06/[address] [facility] HB-[address] [place] [address] Britt Gottlieb RPh At your next appointment, choose [facility]. Social History Tobacco Use Types Packs/Day [...] is lower risk 5 10/01/2023 Data from: https://www.neighborhoodatlas.medicine.[facility] /. Last address used for calculation [address] 10/01/2023 Comments No Sex [...] 02/14/2026 9:00 AM EDT Office Visit Rheumatology [address] [address] Shanna Muller MD [address] [address] RTC after DXA- 6-12 mo f/u documented as of this encounter Visit Diagnoses Not on filedocumented in this encounter Care Teams Door Repairman Relationship Specialty Start Date End Date Marisela Falk APRN.SUPPLY CHAIN MANAGER [address] [place] [address] PCP - General 12/23/23 06/14/24 Santino Aviles MD [address] [place] [address] PCP - General Family Medicine 06/15/24 Sammy Apple DO [address] [place] [address] Orthopedics 10/02/23 Catalina Watson MD [address] [facility] [address] [place] [address] Referring Dermatology 05/14/24 documented as of this encounter
--- OUTSIDE RECORDS SUMMARY | 2025-03-22 12:26 | XMS_ITS | Encounter Summary ---
Author Organization [facility] Address [address] [place] [address] Care Team Providers Care Equal Opportunity Specialist Name Role Phone Sammy Apple DO Unavailable [phone] Marisela Falk APRN.[facility] Primary Care Provider Catalina Watson MD Unavailable [phone] Santino Aviles MD Primary Care Provider [phone] Source Comments In the event this information is protected by the Federal Confidentiality of Alcohol and Drug AbusePatient Records regulations: The Federal rules restrict any use of the information to criminally investigate or prosecute any alcohol or drug abuse patient.[facility] Encounter Details Date Type Department Care Team (Late st Contact Info) Description 05/13/2024 Patient Msg Orthopaedics [address] [place] [address] Robert Harrison PA [address] [address] Appointment Request Social History Tobacco Use Types [...] is lower risk 5 10/01/2023 Data from: https://www.neighborhoodatlas.[facility] /. Last address used for calculation [id number] 10/01/2023 Comments No [...] AM EDT Office Visit Rheumatology [address] [facility] [address] [facility] [place] [address] Shanna Muller MD [address] [facility] [place] [address] RTC after DXA- 6-12 mo f/u documented as of this encounter Visit Diagnoses Not on filedocumented in this encounter Care Teams Equal Opportunity Specialist Relationship Specialty Start Date End Date Marisela Falk, MANAGER TRADE.[facility] [address] [place] [address] PCP - General 12/23/23 06/14/24 Santino Aviles MD [address] [place] [address] PCP - General Family Medicine 06/15/24 Sammy Apple DO [address] [place] [address] Orthopedics 10/02/23 Catalina Watson MD [address] [address] Referring Dermatology 05/14/24 documented as of this encounter
--- OUTSIDE RECORDS SUMMARY | 2025-03-22 12:26 | XMS_ITS | Encounter Summary ---
Author Organization [employer] Address [facility][id number] [address] [place] [address] Care Team Providers Care Band Machine Operator Name Role Phone Tiffanie Guerrero MD Primary Care Provider [phone] Encounter Details Date Type Department Care Team (Late st Contact Info) Description 09/17/2022 Telephone [facility] [address] [place] [address] Jessenia Hillman, RN Social History Tobacco Use [...] over weekend Patient reported she was in [facility] over weekend with asthma flare-up. She is home now. They took her off the Trelegy and is now on Advair 250 BID and Singulair BID. Her CT was negative forblood clots and her CXR negative for pneumonia. Her PFT is scheduled 10/02/22 at [facility]. She will call to see if she can get in earlier. ([facility] is waiting for PFT results [...] try saline sinus rinses, such as a Stephane Med bottle or Neti pot, to clear nasal and sinus mucus. She must use distilled or boiled/ then cooled water to prevent infection. I would like her to complete a 6 minute walk test with her PFTs. Priyanka: can you please call [facility] and check that they can do this? The order is in. Thank you. * Telephone Encounter - Priyanka Mariee CMA - 09/17/2022 9:05 AM EDT I called [facility] they stated they can do this test. [...] abnormality documented in this encounter Care Teams Band Machine Operator Relationship Specialty Start Date End Date Tiffanie Guerrero MD PCP - General Family Medicine 10/06/18 documented as of this encounter
--- OUTSIDE RECORDS SUMMARY | 2025-03-22 12:26 | XMS_ITS | Encounter Summary ---
Author Organization [facility] Address [address] [place] [address] Care Team Providers Care Blog Writer Name Role Phone Sammy Apple Oswald DO Unavailable [phone] Catalina Watson MD Unavailable [phone] Santino Aviles MD Primary Care Provider [phone] Source Comments In the event this information is protected by the Federal Confidentiality of Alcohol and Drug AbusePatient Records regulations: The Federal rules restrict any use of the information to criminally investigate or prosecute any alcohol or drug abuse patient.[facility] Encounter Details Date Type Department [...] is lower risk 5 03/13/2025 Data from: https://www.[facility].e du/. Last address used for calculation [address] 03/13/2025 Comments No [...] Entry Date Author No 04/15/2024 2:04 PM EDAusten Watts RN documented in this encounter Plan of Treatment Upcoming Encounters Date Type Department Care Team (Late st Contact Info) Description 02/14/2026 9:00 AM EDT Office Visit Rheumatology [address] [place] [phone] Shanna Muller MD [address] [place] [id number] RTC after DXA- 6-12 mo f/u documented as of this encounter Visit Diagnoses Not on filedocumented in this encounter Care Teams Blog Writer Relationship Specialty Start Date End Date Santino Aviles MD [address] [facility] [place] [address] PCP - General Family Medicine 06/15/24 Sammy Apple DO [address] [place] [address] Orthopedics 10/02/23 Catalina [place] MD [address] [facility] 350 [place] [address] Referring Dermatology 05/14/24 documented as of this encounter
--- OUTSIDE RECORDS SUMMARY | 2025-03-22 12:26 | XMS_ITS | Encounter Summary ---
Author Organization [facility] Address [address] [place] [address] Care Team Providers Care Supervisor Home Energy Consultant Name Role Phone Tiffanie Guerrero MD Primary Care Provider [phone] Sammy Apple DO Unavailable [phone] Marisela Falk APRN.[facility] Primary Care Provider Catalina Watson MD Unavailable [phone] Santino Aviles MD Primary Care Provider [phone] Source Comments In the event this information is protected by the Federal Confidentiality of Alcohol and Drug AbusePatient Records regulations: The Federal rules restrict any use of the information to criminally investigate or prosecute any alcohol or drug abuse patient.[facility] Encounter Details Date Type Department Care Team (Late st Contact Info) Description 11/08/2023 Get Medical Advice Orthopaedics [address] [address] John Bonds MD [address] [place] [address] Surgery Social History Tobacco Use [...] is lower risk 5 10/01/2023 Data from: https://www.neighborhoodatlas.medicine.[facility] /. Last address used for calculation [address] [...] 9:00 AM EDT Office Visit Rheumatology [address] [facility] [place], [place] [phone] Shanna Muller MD [address] [place] [address] RTC after DXA- 6-12 mo f/u documented as of this encounter Visit Diagnoses Not on filedocumented in this encounter Care Teams Supervisor Home Energy Consultant Relationship Specialty Start Date End Date Tiffanie Guerrero MD [address] [place] [address] PCP - General 10/11/00 12/22/23 Marisela Falk APRN.[facility] [address] [place], [place] [address] PCP - General 12/23/23 06/14/24 Santino Aviles MD [address] [place] [address] PCP - General Family Medicine 06/15/24 Sammy Apple DO [address] [place] [address] Orthopedics 10/02/23 Catalina [place] MD [address] [facility] 350 [place] [address] Referring Dermatology 05/14/24 documented as of this encounter
--- OUTSIDE RECORDS SUMMARY | 2025-03-22 12:26 | XMS_ITS | Encounter Summary ---
Author Organization [facility] Address [address] [place] [address] Care Team Providers Care Shop Welder Name Role Phone Sammy Apple Oswald DO Unavailable [phone] Catalina Watson MD Unavailable [phone] Santino Aviles MD Primary Care Provider [phone] Source Comments In the event this information is protected by the Federal Confidentiality of Alcohol and Drug AbusePatient Records regulations: The Federal rules restrict any use of the information to criminally investigate or prosecute any alcohol or drug abuse patient.[facility] Reason for Visit * Reason Comments Refill Request Encounter Details Date Type Department Care Team (Late st Contact Info) Description 03/12/2025 Refill Rheumatology [address] [address] Gabo Perez APRN.DIESEL TRUCK DRIVER [address] [place] [address] Refill Request Social History Tobacco Use Types [...] is lower risk 5 03/13/2025 Data from: https://www.neighborhoodatlas.[facility].e du/. Last address used for calculation [address] 03/13/2025 Comments No [...] 9:00 AM EDT Office Visit Rheumatology [address] [place], [place] [phone] Shanna Muller MD [address] [place] [address] RTC after DXA- 6-12 mo f/u documented as of this encounter Visit Diagnoses Not on filedocumented in this encounter Care Teams Shop Welder Relationship Specialty Start Date End Date Santino Aviles MD [address] [place] [address] PCP - General Family Medicine 06/15/24 Sammy Apple DO [address] [place] [address] Orthopedics 10/02/23 Catalina [place] MD [address] [facility] 350 [place] [address] Referring Dermatology 05/14/24 documented as of this encounter
--- OUTSIDE RECORDS SUMMARY | 2025-03-22 12:27 | XMS_ITS | Clinical Summary ---
Author Organization [facility] Address [address] [place] [address], [address] [place] [address] Care Team Providers Care Dog Boarder Name Role Phone Unavailable Primary Care Provider [...]
--- OUTSIDE RECORDS SUMMARY | 2025-03-22 12:27 | XMS_ITS | Encounter Summary ---
Author Organization [facility] Address [facility] [place] [address] Care Team Providers Care Bus Mechanic Name Role Phone Sammy Apple Oswald DO Unavailable [phone] Catalina Watson MD Unavailable [phone] Santino Aviles MD Primary Care Provider [phone] Source Comments In the event this information is protected by the Federal Confidentiality of Alcohol and Drug AbusePatient Records regulations: The Federal rules restrict any use of the information to criminally investigate or prosecute any alcohol or drug abuse patient.[facility] Encounter Details Date Type Department Care Team (Late st Contact Info) Description 06/18/2024 Patient Msg Neurology [address] [place] [id number] Provider, [facility] EMG Order Social History Tobacco [...] Data from: https://www.neighborhoodatlas.[facility] /. Last address used for calculation [address] 10/01/2023 Comments No Sex [...] AM EDT Office Visit Rheumatology [address] [facility] [place] [address] Shanna Muller MD [address] [place] [address] RTC after DXA- 6-12 mo f/u documented as of this encounter Visit Diagnoses Not on filedocumented in this encounter Care Teams Bus Mechanic Relationship Specialty Start Date End Date Santino Aviles MD [address] [place] [address] PCP - General Family Medicine 06/15/24 Sammy Apple DO [address] [place] [address] Orthopedics 10/02/23 Catalina [place] MD [address] [address] Referring Dermatology 05/14/24 documented as of this encounter
--- OUTSIDE RECORDS SUMMARY | 2025-03-22 12:27 | XMS_ITS | Encounter Summary ---
Author Organization [facility] Address [address] [place] [address] Care Team Providers Care Drawer Hardware Worker Name Role Phone Sammy Apple Oswald DO Unavailable [phone] Catalina Watson MD Unavailable [phone] Santino Aviles MD Primary Care Provider [phone] Source Comments In the event this information is protected by the Federal Confidentiality of Alcohol and Drug AbusePatient Records regulations: The Federal rules restrict any use of the information to criminally investigate or prosecute any alcohol or drug abuse patient.[facility] Encounter Details Date Type Department Care Team (Late st Contact Info) Description 08/05/2024 Patient Msg Pediatrics [place] [address] [place], [place] [phone] Provider, [facility] Unable to reach you Social [...] is lower risk 5 10/01/2023 Data from: https://www.neighborhoodatlas.[facility] /. Last address used for calculation [address] 10/01/2023 Comments No Sex and [...] 9:00 AM EDT Office Visit Rheumatology [address] [place] [address] Shanna Muller MD [address] [facility] [place] [address] RTC after DXA- 6-12 mo f/u documented as of this encounter Visit Diagnoses Not on filedocumented in this encounter Care Teams Drawer Hardware Worker Relationship Specialty Start Date End Date Santino Aviles MD [address] [place] [address] PCP - General Family Medicine 06/15/24 Sammy Apple DO [address] [place] [address] Orthopedics 10/02/23 Catalina [place] MD [address] [address] Referring Dermatology 05/14/24 documented as of this encounter
--- OUTSIDE RECORDS SUMMARY | 2025-03-22 12:27 | XMS_ITS | Clinical Summary ---
Author Organization [facility] Address [address] [place] [address] Care Team Providers Care Juvenile Correctional Officer Name Role Phone Sammy Apple DO Unavailable [phone] Catalina Watson MD Unavailable [phone] Santino Aviles MD Primary Care Provider [phone] Allergies Active Allergy Reactions Criticality Noted Date Comments Apixaban Hives 04/14/2024 Cephalexin Hives Medium 10/18/2004 Penicillins Hives Medium 01/05/2004 Tree Nuts Anaphylaxis 04/14/2024 Medications CITRACAL 500 MG (2,376 MG) EFFERVESCENT TABIndications:Ot her and unspecified nonspecific immunological findings,Alopecia Take one(1) tablet two(2) times daily. 0 006 Active fluticasone (FLONASE) 50 mcg/actuation nasal spray 1 Staley daily at bedtime. in each nostril. 0 [...] on metoprolol. Follows with outside cardiology at [facility] 03/23/24 Oswald Curry PA-C. Pt reports that [...] to auscultation, follows with pulmonology annually in [facility] areata 05/27/2006 Unspecified hypothyroidism 05/27/2006 Assessment & Plan (12/20/2023 10:05 AM EDT): Assessment: stable with current medication regimen Other atopic dermatitis and related conditions 1 07/27/2005 Resolved Problems Problem Noted Date Diagnosed Date Resolved Date Hypertension 12/20/2023 12/20/2023 Encounters Date Type Department Care Team Description 03/13/2025 Patient Update [facility] [address] [place] [address] Elvira Olivas DO 03/12/2025 8:12 PM EDT - 03/13/2025 12:09 AM EDT Emergency [facility] [address] [place] [address] Elvira Olivas DO Minotti, Matthew, MD Fall Discharge Disposition: Home 03/12/2025 Travel 03/12/2025 Refill Rheumatology [address] [address] Gabo Perez APRN.HEAD TURBINE OPERATOR Refill Request 02/15/2025 7:40 AM EDT Office Visit Rheumatology [address] [id number] Shanna Muller MD Rheumatoid arthritis of multiple [...] of high-risk medication 02/13/2025 Travel 02/10/2025 Patient [facility] -3 [address] [place] [address] Britt Gottlieb RPh At your next appointment, choose [facility] from Last 3 Months Immunizations Immunization Administration Dates Next Due tetanus diphtheria pertussis (Tdap) vaccine, age 7+ yr (ADACEL, BOOSTRIX) 03/12/2025 Family History Medical History Relation Comments Cerebral Embolism Father CVA, aneurysm, CA, Cancer Mother normal [Other] Sister 4 None [...] is lower risk 5 03/13/2025 Data from: https://www.neighborhoodatlas.medicine.[facility].e du/. Last address used for calculation [address] 03/13/2025 Comments No Sex and [...] 9:00 AM EDT Office Visit Rheumatology [address] [place] [address] Shanna Muller MD [address] [address] RTC after DXA- 6-12 mo f/u [...] Density Screening 11/04/2024 Influenza Vaccine (#1) 2025 , 05/14/2023, 07/24/2022, Additional history exists DTaP,Tdap,Td Vaccine (2 - Td or Tdap) 03/12/2035 03/12/2025 RSV Vaccine Completed 06/07/2023 Pneumococcal Vaccine: 50+ Completed 2023, 06/07/2023, 05/26/2018, Additional history exists Hepatitis C Screening Completed 12/03/2024, 022 Medical Devices Implanted Type Area Certified Legal Secretary Specialist Device Identifier Shelf Expiration Date Model / Serial / Lot Cement Simplex P Tobramycin Bone Full Dose Radiopaque Preblend Sterile - [id number] Implanted:Qty : 1 on 04/14/2024 at [facility] Cement / Putty Left: Bone - Shoulder [employer] 06/30/2025 [id number] / / [id number] Cement Simplex P Bone Radiopaque Full Dose Sterile - [id number] Implanted:Qty : 1 on 04/14/2024 at [facility] Cement / Putty Left: Bone - Shoulder [employer] 01/28/2026 [id number] / / [id number] Procedures Procedure Name Priority Date/Time Associated Diagnosis Comments HIGH SENSITIVITY TROPONIN T (SECOND) STAT 03/12/2025 11:30 PM EDT [facility] ED NOTEWRITER PROCEDURE LACERATION REPAIR Routine 03/12/2025 [...] 10 <12 ng/L 03/13/2025 12:10 AM EDT [facility] Blood BLOOD SPECIMEN / Unknown Venipuncture / Unknown 03/12/2025 11:30 PM EDT 03/12/2025 11:40 PM EDT us Elvira Olivas DO LABORATORY Final Result [facility] [address] [place] [address], [place] * LAC REPAIR (03/12/2025 10:45 PM EDT) Narrative Elvira Olivas DO - 03/12/2025 10:45 PM EDT Elvira Olivas DO 03/12/2025 10:51 PM LAC REPAIR Date/Time: 03/12/2025 10:45 PM Performed by: Elvira Olivas DO Authorized by: Elvira Olivas DO Informed Consent Consent Obtained: Verbal [place] Protocol A moment to CARE was completed. [...] team (including bedside nurse for hospitalized patients). [facility] PROCEDURE Final Result * POTASSIUM (03/12/2025 10:24 PM EDT) Potassium 4.0 3.7 - 5.1 mmol/L 03/12/2025 10:58 PM EDT [facility] Blood BLOOD SPECIMEN / Unknown Venipuncture / Unknown 03/12/2025 10:24 PM EDT 03/12/2025 10:31 PM EDT [facility] LAB[facility]ORY Final Result Performing Organization Address [facility] Co de Phone Number [facility] [address] * HIGH SENSITIVITY TROPONIN T (INITIAL) (03/12/2025 10:24 PM EDT) DOMENICA High Sensitivity 8 <12 ng/L 03/12/2025 10:51 PM EDT [facility] Blood BLOOD SPECIMEN / Unknown Venipuncture / Unknown 03/12/2025 10:24 PM EDT 03/12/2025 10:31 PM EDT [facility] Final Result Performing Organization Address [facility] de Phone Number [facility] [address] * MAGNESIUM (03/12/2025 9:46 PM EDT) Magnesium 1.9 1.7 - 2.3 mg/dL 03/12/2025 10:18 PM EDT [facility] Blood BLOOD SPECIMEN / Unknown Venipuncture / Unknown 03/12/2025 9:46 PM EDT 03/12/2025 9:53 PM EDT [facility] Final Result Performing Organization Address City/[facility] Co de Phone Number [facility] [address] [place] [address], * (ABNORMAL) COMPLETE BLOOD COUNT (03/12/2025 9:46 PM EDT) WBC 11.12(H) 3.70 - 11.00 k/uL 03/12/2025 9:56 PM EDT [facility] RBC 3.97 3.90 - 5.20 m/uL 03/12/2025 9:56 PM EDT [facility] Hemoglobin 11.5 11.5 - 15.5 g/dL 03/12/2025 9:56 PM EDT [facility] Hematocrit 35.6(L) 36.0 - 46.0 % 03/12/2025 9:56 PM EDT [facility] MCV 89.7 80.0 - 100.0 fL 03/12/2025 9:56 PM EDT [facility] MCH 29.0 26.0 - 34.0 pg 03/12/2025 9:56 PM EDT [facility] MCHC 32.3 30.5 - 36.0 g/dL 03/12/2025 9:56 PM EDT [facility] RDW-CV 14.9 11.5 - 15.0 % 03/12/2025 9:56 PM EDT [facility] Platelet Count 308 150 - 400 k/uL 03/12/2025 9:56 PM EDT [facility] MPV 9.1 9.0 - 12.7 fL 03/12/2025 9:56 PM EDT [facility] Absolute nRBC <0.01 <0.01 k/uL 03/12/2025 9:56 PM EDT [facility] Blood BLOOD SPECIMEN / Unknown Venipuncture / Unknown 03/12/2025 9:46 PM EDT 03/12/2025 9:53 PM EDT Elvira Olivas DO LABORATORY Final Result [facility] [address] [place] [address], * (ABNORMAL) BASIC METABOLIC PANEL (03/12/2025 9:46 PM EDT) Glucose 102(H) 74 - 99 mg/dL 03/12/2025 10:18 PM [facility] Comment: The [place] Diabetes Association (ADA) provides guidance for cutoff [...] Standards of Medical Care in Diabetes 2016, [place] Diabetes Association. Diabetes Care. 2016.39(Suppl 1). BUN 22(H) 7 - 21 mg/dL 03/12/2025 10:18 PM [facility] Creatinine 0.72 0.58 - 0.96 mg/dL 03/12/2025 10:18 PM [facility] Sodium 138 136 - 144 mmol/L 03/12/2025 10:18 PM [facility] Potassium 03/12/2025 10:18 PM [facility] Comment:Unable to assay due to interference from hemolysis. Suggest reorder as clinically indicated. Chloride 101 98 - 107 mmol/L 03/12/2025 10:18 PM [facility] CO2 26 22 - 30 mmol/L 03/12/2025 10:18 PM [facility] Anion Gap 11 8 - 15 mmol/L 03/12/2025 10:18 PM [facility] Calcium, Total 9.0 8.5 - 10.2 mg/dL 03/12/2025 10:18 PM [facility] Estimated Glomerular Filtration Rate 93 >=60 mL/min/1. 73m 03/12/2025 10:18 PM [facility] Comment:Estimated Glomerular Filtration Rate (eGFR) is [...] PM EDT Elvira Olivas LABORATORY Final Result [facility] [address] [place] [address], [place] * XR KNEE INJURY 4V AP/LAT/OBLS LEFT (03/12/2025 9:18 PM EDT) Anatomical Region Laterality Modality Knee Radiographic Chiquita ging 03/12/2025 9:18 PM EDT Impressions 03/12/2025 10:35 PM EDT IMPRESSION: 1. Uncomplicated appearance of medial compartment arthroplasty. 2. Mild patellofemoral arthrosis. Liner Man: DEBBIE Transcribe Date/Time: Mar 12 2025 10:30P [...] tissues are grossly unremarkable. Procedure Note Provider, [facility] - 03/12/2025 * * *Final Report* * [...] medial compartment arthroplasty. 2. Mild patellofemoral arthrosis. Liner Man: DEBBIE Transcribe Date/Time: Mar 12 2025 10:30P Dictated by : ANTONIO VELASQUEZ MD This examination was interpreted and the report reviewed and electronically signed by: ANTONIO VELASQUEZ MD on Mar 12 2025 10:33PM EST us Elviramohan Olivas DO RAD-PAMA Final Result * CT [...] tibial tuberosity which may represent foreign bodies. Liner Man: [facility] Transcribe Date/Time: Mar 12 2025 10:05P Dictated by : FATOUMATA CONNELL MD This examination was interpreted and the report reviewed and electronically signed by: FATOUMATA CONNELL MD on Mar 12 2025 10:19PM EST Narrative 03/12/2025 10:21 PM EDT * * *Final Report* * * DATE OF EXAM: Mar 12 2025 8:41PM [facility] 0083 - CT KNEE WO IVCON LT [...] knee arthroplasty are noted. Procedure Note Provider, [facility] - 03/12/2025 * * *Final Report* * * DATE OF EXAM: Mar 12 2025 8:41PM [facility] 0083 - CT KNEE WO IVCON LT [...] tibial tuberosity which may represent foreign bodies. Liner Man: DEBBIE Transcribe Date/Time: Mar 12 2025 10:05P Dictated by : FATOUMATA CONNELL MD This examination was interpreted and the report reviewed and electronically signed by: FATOUMATA CONNELL MD on Mar 12 2025 10:19PM EST Elviramohan Juliante DO CT-PAMA Final Result * CT CERVICAL SPINE WO IVCON (03/12/2025 8:41 PM EDT) Anatomical Region Laterality Modality C-spine Computed Tomogra phy 03/12/2025 8:41 PM EDT Impressions 03/12/2025 9:23 PM EDT IMPRESSION: No acute fractures demonstrated in the cervical spine. Cervical spine degenerative changes with C5-6 disc space narrowing. Liner Man: DEBBIE Transcribe Date/Time: Mar 12 2025 9:09P Dictated by : DILSHAD AC MD This examination was interpreted and the report reviewed and electronically signed by: DILSHAD AC MD on Mar 12 2025 9:21PM EST Narrative 03/12/2025 9:23 PM EDT * * *Final Report* * * DATE OF EXAM: Mar 12 2025 8:41PM [facility] 0505 - CT CERVICAL SPINE WO IVCON [...] Counting reference: Craniocervical junction. Anatomic Variants: None. Form Setter Steel Pan Forms (topogram) images: No additional findings. Alignment: No [...] facet arthrosis is present Procedure Note Provider, [facility] - 03/12/2025 * * *Final Report* * * DATE OF EXAM: Mar 12 2025 8:41PM [facility] 0505 - CT CERVICAL SPINE WO IVCON [...] Counting reference: Craniocervical junction. Anatomic Variants: None. Form Setter Steel Pan Forms (topogram) images: No additional findings. Alignment: No [...] degenerative changes with C5-6 disc space narrowing. Liner Man: [facility] Transcribe Date/Time: Mar 12 2025 9:09P [...] EDT IMPRESSION: No acute intracranial hemorrhage identified. Liner Man: DEBBIE Transcribe Date/Time: Mar 12 2025 9:09P Dictated by : DILSHAD AC MD This examination was interpreted and the report reviewed and electronically signed by: DILSHAD AC MD on Mar 12 2025 9:14PM EST Narrative 03/12/2025 9:16 PM EDT * * *Final Report* * * DATE OF EXAM: Mar 12 2025 8:41PM [facility] 0504 - CT BRAIN WO IVCON / [...] images: No additional findings. Procedure Note Provider, [facility] - 03/12/2025 * * *Final Report* * * DATE OF EXAM: Mar 12 2025 8:41PM [facility] 0504 - CT BRAIN WO IVCON / [...] IMPRESSION IMPRESSION: No acute intracranial hemorrhage identified. [facility] Transcribe Date/Time: Mar 12 2025 9:09P Dictated [...] (Bazett) 449 ms [facility] Calculated P [place] 35 degrees [facility] Calculated R [place] -14 degrees [facility] Calculated T [place] 97 degrees [facility] 03/12/2025 8:26 PM EDT Impressions [facility] - 03/12/2025 9:22 PM EDT SINUS RHYTHM WITH OCCASIONAL PREMATURE VENTRICULAR COMPLEXES POSSIBLE LEFT ATRIAL ENLARGEMENT CANNOT RULE OUT ANTERIOR INFARCT , AGE UNDETERMINED T WAVE ABNORMALITY, CONSIDER LATERAL ISCHEMIA ABNORMAL ECG No Stemi Confirmed by ELVIRA OLIVAS DO ([id number]) on 03/12/2025 9:22:56 PM Narrative [facility] - 03/12/2025 9:22 PM EDT NAME : IZABELLA GOMEZ PID : [id number] : 1960 Gender : Female Race : ORD : Procedure Date : Mar 12 2025 20:26:52 Edit Date : Mar 12 2025 21:22:58 Diagnosis: SINUS RHYTHM WITH OCCASIONAL PREMATURE VENTRICULAR COMPLEXES POSSIBLE LEFT ATRIAL ENLARGEMENT CANNOT RULE OUT ANTERIOR INFARCT , AGE UNDETERMINED T WAVE ABNORMALITY, CONSIDER LATERAL ISCHEMIA ABNORMAL ECG No Stemi Confirmed by ELVIRA OLIVAS DO ([id number]) on 03/12/2025 9:22:56 PM Test Reason : Location : 1 : ER ED Overread By : ELVIRA OLIVAS DO Edited By : ELVIRA OLIVAS DO Referred By : , Acquired by : sc, us [facility]cf Provider CARDIOLOGY_ME Final Result Performing Organization Address City/[facility]/ZIP Co de Phone Number [facility] * HEPATITIS C ANTIBODY IA WITH CONFIRMATION (12/03/2024 10:55 AM EDT) Hep C Antibody IA Negative Negative 12/03/2024 10:06 PM EDT [facility] Comment:The result suggests no evidence of infection with Hepatitis C virus. Should recent infection be suspected, repeat testing may be considered 4-6 weeks after this draw. Blood BLOOD SPECIMEN / Unknown Venipuncture / Unknown 12/03/2024 10:55 AM EDT 12/03/2024 10:56 AM EDT Narrative [facility] - 12/03/2024 10:06 PM EDT Result rechecked. us Shanna Muller MD LABORATORY Final Result [facility] [address] * (ABNORMAL) HEMOGLOBIN A1C (03/30/2024 4:21 PM EDT) Hemoglobin A1C 6.0(H) 4.3 - 5.6 % 03/31/2024 9:30 AM EDT [facility] Comment:[place] Diabetes As sociation guidelines indicate that patients with HgbA1c in the range 5.7-6.4% are at increased risk for development of diabetes, and intervention by lifestyle modification may be beneficial. HgbA1c greater or equal to 6.5% is considered diagnostic of diabetes. Estimated Average Glucose 126 mg/dL 03/31/2024 9:30 AM EDT [facility] Comment:eAG: (Estimated aver age glucose) is a calculated value from HgbA1c and is hr representative of the average blood glucose level in the last 2-3 month period. Blood BLOOD SPECIMEN / Unknown Venipuncture / Unknown 03/30/2024 4:21 PM EDT 03/30/2024 4:21 PM EDT us Cathleen Ty PA-C LABORATORY Final Result [facility] [address] [address], [place] from Last 3 Months or Most Recently Relevant to Health Maintenance Insurance [facility] PPO Care Teams Juvenile Correctional Officer Relationship Specialty Start Date End Date Santino Aviles MD [address] [place], [place] [phone] PCP - General Family Medicine 06/15/24 Sammy Apple DO [address] [place] [id number] Orthopedics 10/02/23 Catalina Watson MD [address] [place] [address] Referring Dermatology 05/14/24
--- OUTSIDE RECORDS SUMMARY | 2025-03-22 12:27 | XMS_ITS | Encounter Summary ---
Author Organization [facility] Address [facility] [place] [address] Care Team Providers Care Food Processing Plant Manager Name Role Phone Sammy Apple DO Unavailable [phone] Marisela Falk APRN.[facility] Primary Care Provider Catalina Watson MD Unavailable [phone] Santino Aviles MD Primary Care Provider [phone] Source Comments In the event this information is protected by the Federal Confidentiality of Alcohol and Drug AbusePatient Records regulations: The Federal rules restrict any use of the information to criminally investigate or prosecute any alcohol or drug abuse patient.[facility] Encounter Details Date Type Department Care Team (Late st Contact Info) Description 06/08/2024 Patient Msg Neurology [address] [place], [place] [phone] Provider, Ccf Requested EMG Apointment Social History [...] is lower risk 5 10/01/2023 Data from: https://www.neighborhoodatlas.medicine.[facility] /. Last address used for calculation [address] 10/01/2023 Comments No [...] 9:00 AM EDT Office Visit Rheumatology [address] [place] [address] Shanna Muller MD [address] [place] [address] RTC after DXA- 6-12 mo f/u documented as of this encounter Visit Diagnoses Not on filedocumented in this encounter Care Teams Food Processing Plant Manager Relationship Specialty Start Date End Date Marisela Falk APRN.AUDIOPROSTHOLOGIST [address] [place], [place] [phone] PCP - General 12/23/23 06/14/24 Santino Aviles MD [address], [place] [phone] PCP - General Family Medicine 06/15/24 Sammy Apple DO [address] [place] [address] Orthopedics 10/02/23 Catalina Watson MD [address] [facility] [address] [place] [address] Referring Dermatology 05/14/24 documented as of this encounter
--- OUTSIDE RECORDS SUMMARY | 2025-03-22 12:27 | XMS_ITS | Encounter Summary ---
Author Organization [facility] Address [address] [place] [address] Care Team Providers Care Print Buyer Name Role Phone Sammy Apple Oswald DO Unavailable [phone] Catalina Watson MD Unavailable [phone] Santino Aviles MD Primary Care Provider [phone] Source Comments In the event this information is protected by the Federal Confidentiality of Alcohol and Drug AbusePatient Records regulations: The Federal rules restrict any use of the information to criminally investigate or prosecute any alcohol or drug abuse patient.[facility] Encounter Details Date Type Department Care Team (Late st Contact Info) Description 06/18/2024 Get Medical Advice Orthopaedics [address] [place] [address] John Bonds MD [address] [place] [address] Declined test and revision Social [...] is lower risk 5 10/01/2023 Data from: https://www.neighborhoodatlas.medicine.[facility] /. Last address used for calculation [address] 10/01/2023 Comments No [...] 9:00 AM EDT Office Visit Rheumatology [address] [place] [address] Shanna Muller MD [address] [place], [place] [phone] RTC after DXA- 6-12 mo f/u documented as of this encounter Visit Diagnoses Not on filedocumented in this encounter Care Teams Print Buyer Relationship Specialty Start Date End Date Santino Aviles MD [address] [place] [address] PCP - General Family Medicine 06/15/24 Sammy Apple DO [address] [place] [id number] Orthopedics 10/02/23 Catalina Watson MD [address] [facility] [address] [place], [place] [phone] Referring Dermatology 05/14/24 documented as of this encounter
--- OUTSIDE RECORDS SUMMARY | 2025-03-22 12:27 | XMS_ITS | Encounter Summary ---
Author Organization [facility] Address [address] [place] [address] Care Team Providers Care Senior Medical Technologist Name Role Phone Tiffanie Guerrero MD Primary Care Provider [phone] Sammy Apple DO Unavailable [phone] Marisela Falk APRN.[facility] Primary Care Provider Catalina Watson MD Unavailable [phone] Santino Aviles MD Primary Care Provider [phone] Source Comments In the event this information is protected by the Federal Confidentiality of Alcohol and Drug AbusePatient Records regulations: The Federal rules restrict any use of the information to criminally investigate or prosecute any alcohol or drug abuse patient.[facility] Encounter Details Date Type Department Care Team (Late st Contact Info) Description 09/26/2023 Get Medical Advice Rheumatology [address] [place] [address] Shanna Muller MD [address] [address] Appointment Social History Tobacco Use [...] N ot on file 07/18/2022 Data from: https://www.neighborhoodatlas.[facility] /. Last address used for calculation [address] 07/18/2022 Comments No Sex and [...] 9:00 AM EDT Office Visit Rheumatology [address] [facility] [place] [address] Shanna Muller MD [address] [place], [place] [phone] RTC after DXA- 6-12 mo f/u documented as of this encounter Visit Diagnoses Not on filedocumented in this encounter Care Teams Senior Medical Technologist Relationship Specialty Start Date End Date Tiffanie Guerrero MD [address] [phone] PCP - General 10/11/00 12/22/23 Marisela Falk APRN.ELECTRIC TRACK SWITCH MAINTAINER [address] [phone] PCP - General 12/23/23 06/14/24 Santino Aviles MD [address] [place] [address] PCP - General Family Medicine 06/15/24 Sammy Apple DO [address] [place] [address] Orthopedics 10/02/23 Catalina Watson MD [address] [facility] [address] [place] [address] Referring Dermatology 05/14/24 documented as of this encounter
--- OUTSIDE RECORDS SUMMARY | 2025-03-22 12:27 | XMS_ITS | Encounter Summary ---
Author Organization [facility] Address [facility] [place] [address] Care Team Providers Care Farm Butcher Name Role Phone Sammy Apple Oswald DO Unavailable [phone] Catalina Watson MD Unavailable [phone] Santino Aviles MD Primary Care Provider [phone] Source Comments In the event this information is protected by the Federal Confidentiality of Alcohol and Drug AbusePatient Records regulations: The Federal rules restrict any use of the information to criminally investigate or prosecute any alcohol or drug abuse patient.[facility] Encounter Details Date Type Department Care Team (Late st Contact Info) Description 07/03/2024 Patient Msg Neurology [address] [phone] Provider, Ccf EMG Order Social History Tobacco [...] risk 5 10/01/2023 Data from: https://www.neighborhoodatlas.[facility] /. Last address used for calculation [address] 10/01/2023 Comments No Sex [...] 9:00 AM EDT Office Visit Rheumatology [address] [facility] [place] [address] Shanna Muller MD [address] [facility] [place] [address] RTC after DXA- 6-12 mo f/u documented as of this encounter Visit Diagnoses Not on filedocumented in this encounter Care Teams Farm Butcher Relationship Specialty Start Date End Date Santino Aivles MD [address] [place] [address] PCP - General Family Medicine 06/15/24 Sammy Apple DO [address] [place] [address] Orthopedics 10/02/23 Catalina Watson MD [address] [address] Referring Dermatology 05/14/24 documented as of this encounter
--- OUTSIDE RECORDS SUMMARY | 2025-03-22 12:27 | XMS_ITS | Encounter Summary ---
Author Organization [facility] Address [address] [place] [address] Care Team Providers Care Blade Boner Name Role Phone Marisela Falk KAIAKO KOHANGA REO Unavailable Encounter Details Date Type Department Care Team (Late st Contact Info) Description 09/22/2024 Abstract [facility]ARA [facility] Dermatology [address] [place] [phone] Catalina Watson MD [address] [place] [address] Social History Tobacco Use Types Packs/Day Years [...] Allergy [address] [place] [address] Theodore Arias MD [address] [place] [address] documented as of this encounter Visit Diagnoses Not on filedocumented in this encounter Care Teams Blade Boner Relationship Specialty Start Date End Date Marisela Falk NP [address] [place] [address] Referring Physician Family Medicine 03/13/24 documented as of this encounter
--- OUTSIDE RECORDS SUMMARY | 2025-03-22 12:28 | XMS_ITS | Clinical Summary ---
Author Organization [facility] Address [address] [place] [address] Phone Care Team Providers Care Data Center Engineer Name Role Phone Tiffanie Guerrero MD Primary Care Provider Social History Tobacco Use Types Packs/Day Years Used Date Smoking Tobacco: Never Assessed Comments Unknown Sex and Gender Information Value Date Recorded Sex Assigned at Not on file Legal Sex Female 11:03 PM EST Gender Identity Not on file Sexual Orientation Not on file Plan of Treatment Not on file Care Teams Data Center Engineer Relationship Specialty Start Date End Date Tiffanie Guerrero MD [address] MD [facility] [place] [address] PCP - General 02/14/18
--- OUTSIDE RECORDS SUMMARY | 2025-03-22 12:28 | XMS_ITS | Encounter Summary ---
Author Organization [facility] Address [address] [place] [address] Care Team Providers Care Rn Oncology Research Name Role Phone Sammy Apple DO Unavailable [phone] Catalina Watson MD Unavailable [phone] Santino Aviles MD Primary Care Provider [phone] Source Comments In the event this information is protected by the Federal Confidentiality of Alcohol and Drug AbusePatient Records regulations: The Federal rules restrict any use of the information to criminally investigate or prosecute any alcohol or drug abuse patient.[facility] Reason for Visit * Reason Comments Medication Problem Encounter Details Date Type Department Care Team (Late st Contact Info) Description 12/18/2024 Telephone Endocrinology [address] [place] [address] Shanna Muller MD [address] [place], [place] [id number] Medication Problem Social History Tobacco Use Types [...] risk 5 10/01/2023 Data from: https://www.neighborhoodatlas.medicine.[facility] /. Last address used for calculation [id number] 10/01/2023 Comments No [...] 11:52 AM EDT Spoke with Delma at [facility]. Clinical needed for request. Fax #: [phone]. PA # as reference on cover sheet. * Telephone Encounter - Mayra Anderson - 12/18/2024 4:52 PM EDT [facility] is calling regarding the PA for Rinvoq. The PA # [id number] created 12/16/24 is waiting for review. Their PA department is waiting for you to call them at [phone]. Patient has been identified by name and birthdate. Duration of symptoms: N/A Was an appointment scheduled: No Closing statement: Results or non-symptom based questions: Thank you for calling [facility], your call will be returned within the next business day. Mayra Davidson documented in this encounter Plan of Treatment Upcoming Encounters Date Type Department Care Team (Late st Contact Info) Description 02/14/2026 9:00 AM EDT Office Visit Rheumatology [address] [facility] [place] [address] Shanna Muller MD [address] [facility] [place], [place] [phone] RTC after DXA- 6-12 mo f/u documented as of this encounter Visit Diagnoses Not on filedocumented in this encounter Care Teams Rn Oncology Research Relationship Specialty Start Date End Date Santino Aviles MD [address] [place] [address] PCP - General Family Medicine 06/15/24 Sammy Apple DO [address] [place] [address] Orthopedics 10/02/23 Catalina Watson MD [address] [facility] [address] [place] [address] Referring Dermatology 05/14/24 documented as of this encounter
--- OUTSIDE RECORDS SUMMARY | 2025-03-22 12:28 | XMS_ITS | Encounter Summary ---
Author Organization [facility] Address [address] [place] [address] Care Team Providers Care Stone Chimney Mason Name Role Phone Sammy Apple DO Unavailable [phone] Catalina Watson MD Unavailable [phone] Santino Aviles MD Primary Care Provider [phone] Source Comments In the event this information is protected by the Federal Confidentiality of Alcohol and Drug AbusePatient Records regulations: The Federal rules restrict any use of the information to criminally investigate or prosecute any alcohol or drug abuse patient.[facility] Reason for Visit * Reason Comments Refill Request Encounter Details Date Type Department Care Team (Late st Contact Info) Description 09/21/2024 Refill Rheumatology [address] [place], [place] [phone] Shanna Muller MD [address] [place], [place] [address] Refill Request Social History Tobacco Use Types [...] lower risk 5 10/01/2023 Data from: https://www.neighborhoodatlas.medicine.[facility] /. Last address used for calculation [id number] [...] 365 Days Visit Type Date Time Department [facility] 02/15/2025 7:40 AM [facility] CBC: Latest Ref Rng & Units [...] 9:00 AM EDT Office Visit Rheumatology [address] [place] [address] Shanna Muller MD [address] [place] [address] RTC after DXA- 6-12 mo f/u documented as of this encounter Visit Diagnoses Diagnosis Rheumatoid arthritis of multiple sites without rheumatoid factor (HCC) Rheumatoid arthritis documented in this encounter Care Teams Stone Chimney Mason Relationship Specialty Start Date End Date Santino Aviles MD [address] [place] [address] PCP - General Family Medicine 06/15/24 Sammy Apple DO [address] [place] [address] Orthopedics 10/02/23 Catalina Watson MD [address] [address] Referring Dermatology 05/14/24 documented as of this encounter
--- OUTSIDE RECORDS SUMMARY | 2025-03-22 12:28 | XMS_ITS | Encounter Summary ---
Author Organization [facility] Address [address] [place] [address] Care Team Providers Care Site Acquisition Specialist Name Role Phone Sammy Apple Oswald DO Unavailable [phone] Catalina Watson MD Unavailable [phone] Santino Aviles MD Primary Care Provider [phone] Source Comments In the event this information is protected by the Federal Confidentiality of Alcohol and Drug AbusePatient Records regulations: The Federal rules restrict any use of the information to criminally investigate or prosecute any alcohol or drug abuse patient.[facility] Encounter Details Date Type Department Care Team (Late st Contact Info) Description 11/04/2024 [place] [address] Provider, f Medicare Coverage of Physical Exams [...] is lower risk 5 10/01/2023 Data from: https://www.neighborhoodatlas.[facility] /. Last address used for calculation [id number] 10/01/2023 Comments No Sex [...] 9:00 AM EDT Office Visit Rheumatology [address] [place] [address] Shanna Muller MD [address], [place] [phone] RTC after DXA- 6-12 mo f/u documented as of this encounter Visit Diagnoses Not on filedocumented in this encounter Care Teams Site Acquisition Specialist Relationship Specialty Start Date End Date Santino Aviles MD [address] [place] [address] PCP - General Family Medicine 06/15/24 Sammy Apple DO [address] [place] [address] Orthopedics 10/02/23 Catalina Watson MD [address] [phone] Referring Dermatology 05/14/24 documented as of this encounter
--- OUTSIDE RECORDS SUMMARY | 2025-03-22 12:28 | XMS_ITS | Encounter Summary ---
Author Organization [facility] Address [address] [place] [address] Care Team Providers Care Front Sight Attacher Name Role Phone Silvestre Tamayo MD Primary Care Provider [phone] Marisela Falk NP Unavailable Encounter Details Date Type Department Care Team (Late st Contact Info) Description 11/18/2023 Orders Only [facility] [address] [place] [address] Jaylin Prieto NP Osteoporosis, unspecified osteoporosis type, [...] [place] All[facility] [address] [facility] [address] [place] [address] Theodore Arias MD [address] [facility] [address] [place] [address] documented as of this encounter Procedures Procedure [...] presence documented in this encounter Care Teams Front Sight Attacher Relationship Specialty Start Date End Date Silvestre Tamayo MD PCP - General Family Medicine 03/05/23 03/12/24 Marisela Falk NP [address] [place] [address] Referring Physician Family Medicine 03/13/24 documented as of this encounter
--- OUTSIDE RECORDS SUMMARY | 2025-03-22 12:29 | XMS_ITS | Encounter Summary ---
Author Organization [facility] Address [address] [place] [address] Care Team Providers Care Drainman Name Role Phone Sammy Apple DO Unavailable [phone] Marisela Falk APRN.[facility] Primary Care Provider Catalina Watson MD Unavailable [phone] Santino Aviles MD Primary Care Provider [phone] Source Comments In the event this information is protected by the Federal Confidentiality of Alcohol and Drug AbusePatient Records regulations: The Federal rules restrict any use of the information to criminally investigate or prosecute any alcohol or drug abuse patient.[facility] Encounter Details Date Type Department Care Team (Late st Contact Info) Description 04/10/2024 Patient Msg Rheumatology [address] [place] [address] Shanna Muller MD [address] [place] [address] Appointment Request Social History Tobacco [...] is lower risk 5 10/01/2023 Data from: https://www.neighborhoodatlas.[facility] /. Last address used for calculation [address] 10/01/2023 Comments No Sex [...] Date Author No 01/27/2014 9:53 AM Sera aPyton MA documented in this encounter Plan of Treatment Upcoming Encounters Date Type Department Care Team (Late st Contact Info) Description 02/14/2026 9:00 AM EDT Office Visit Rheumatology [address] [place] [address] Shanna Muller MD [address] [place] [address] RTC after DXA- 6-12 mo f/u documented as of this encounter Visit Diagnoses Not on filedocumented in this encounter Care Teams Drainman Relationship Specialty Start Date End Date Marisela Falk APRN.[facility] [address] [place] [address] PCP - General 12/23/23 06/14/24 Santino Aviles MD [address] [place] [address] PCP - General Family Medicine 06/15/24 Sammy Apple DO [address] [place] [address] Orthopedics 10/02/23 Catalina Watson MD [address] [address] Referring Dermatology 05/14/24 documented as of this encounter
--- OUTSIDE RECORDS SUMMARY | 2025-03-22 12:29 | XMS_ITS | Encounter Summary ---
Author Organization [facility] Address [address] [place] [address] Care Team Providers Care Windows 7 Deployment Lead Name Role Phone Sammy Apple DO Unavailable [phone] Marisela Falk APRN.[facility] Primary Care Provider Catalina Watson MD Unavailable [phone] Santino Aviles MD Primary Care Provider [phone] Source Comments In the event this information is protected by the Federal Confidentiality of Alcohol and Drug AbusePatient Records regulations: The Federal rules restrict any use of the information to criminally investigate or prosecute any alcohol or drug abuse patient.[facility] Encounter Details Date Type Department Care Team (Late st Contact Info) Description 04/22/2024 Patient Msg Orthopaedics [address] [place] [address] Robert Harrison PA [address] [address] Work Letter Social History Tobacco Use Types [...] risk 5 10/01/2023 Data from: https://www.neighborhoodatlas.[facility] /. Last address used for calculation [address] 10/01/2023 Comments No Sex and [...] 9:00 AM EDT Office Visit Rheumatology [address] [facility] [place] [address] Shanna Muller MD [address] [facility] [place] [address] RTC after DXA- 6-12 mo f/u documented as of this encounter Visit Diagnoses Not on filedocumented in this encounter Care Teams Windows 7 Deployment Lead Relationship Specialty Start Date End Date Marisela Falk, PRACTICE SPECIALIST.SENIOR SOFTWARE TESTER [address] [place] [address] PCP - General 12/23/23 06/14/24 Santino Aviles MD [address] [place] [address] PCP - General Family Medicine 06/15/24 Sammy Apple DO [address] [place] [address] Orthopedics 10/02/23 Catalina Watson MD [address] [address] Referring Dermatology 05/14/24 documented as of this encounter
--- OUTSIDE RECORDS SUMMARY | 2025-03-22 12:29 | XMS_ITS | Clinical Summary ---
Author Organization [facility] Address [address] [place] [address] Care Team Providers Care Plant Sciences Professor Name Role Phone Marisela Falk DISTRIBUTION CENTER SUPERVISOR Unavailable Allergies Active Allergy Reactions Criticality Noted [...] Allergy [address] [place] [address] Theodore Arias MD Pneumonia of left lower lobe due to Streptococcus pneumoniae (Primary Dx); Moderate persistent asthma with acute exacerbation (HCC) 02/01/2025 Bamboo flowsheet [facility] [address] [place] [address] Theodore Arias MD 02/01/2025 Travel from Last [...] Office Visit [facility] [place] [facility] [address] [phone] Theodore Arias MD [address] [place] [address] [address] Health Maintenance Due Date Last Done Comments [...] AND HPV MRNA E6/E7 REFLEX HPV 16,18/45 (79901) Routine 04/19/2020 from Last 3 Months or Most Recently Relevant to Health Maintenance Results * Bilateral screening mammogram with tomosynthesis (06/01/2020) Anatomical Region Laterality Modality Breast Bilateral Mammography Impressions 06/01/2020 12:00 AM EST BIRADS 2 : BENIGN FINDINGS, NORMAL INTERVAL FOLLOW UP. MAMMOGRAPHY IS VERY IMPORTANT TO YOUR HEALTH. THE CURRENT [employer] [employer] GUIDELINES RECOMMEND ANNUAL MAMMOGRAPHY BEGINNING AT AGE 40. THIS FACILITY UTILIZES A REMINDER SYSTEM TO ENSURE ALL PATIENTS RECEIVE A REMINDER NOTIFICATION AT THE APPROPRIATE TIME BASED ON THE RECOMMENDATIONS OF THIS EXAM. BOARD CERTIFIED RADIOLOGIST. ACCREDITED BY THE [facility] AND FDA. Report reported and signed by Mayra Camacho on 06/03/2020 1132 Narrative 06/01/2020 12:00 AM EST PERFORMED AT [facility] LOCATION:[place] [address] EXAMINATION: Screening Mammogram CLINICAL HISTORY: History [...] Note CONVERSION, GENERIC - 01/04/2023 PERFORMED AT [facility] LOCATION:[place] [address] [address] EXAMINATION: Screening Mammogram CLINICAL HISTORY: [...] Mayra Camacho on 06/03/2020 1132 us Jose Kratf MD IMG BI PROCEDURES Final Result * THINPREP TIS PAP AND HPV MRNA E6/E7 REFLEX HPV 16,18/45 (57701) (04/19/2020) CLINICAL INFORMATION: None given [facility] [...] computer assisted technology. [facility] ULTRASOUND SPECIALIST: SEE COMMENT [facility] Comment: PE, CT(ASCP) CT screening location: [place] [address]. COMMENT SEE COMMENT [facility] [...] was performed using the APTIMA HPV Assay ([employer] This assay detects E6/E7 viral messenger RNA (mRNA) from 14 high-risk HPV types (16,18,31,33,35,39,45,51,52,56,58,59,66,68). The analytical performance characteristics of this assay have been determined by [employer]. The modifications have not been cleared or approved by the FDA. This assay has been validated pursuant to the CLIA regulations and is used for clinical purposes. 04/19/2020 us Jose Kraft MD [facility] Final Result [facility] from Last 3 Months or Most Recently Relevant to Health Maintenance Insurance [facility] Care Teams Plant Sciences Professor Relationship Specialty Start Date End Date Marisela Falk NP [address] [place], [place] [id number] Referring Physician Family Medicine 03/13/24
--- OUTSIDE RECORDS SUMMARY | 2025-03-22 12:29 | XMS_ITS | Encounter Summary ---
Author Organization [facility] Address [address] [place] [address] Care Team Providers Care Carbide Die Maker Name Role Phone Silvestre Tamayo MD Primary Care Provider [phone] Marisela Falk NP Unavailable Encounter Details Date Type Department Care Team (Late Contact Info) Description 05/23/2023 Abstract [facility] [address] [facility] [address] [place] [address] Jaylin Prieto NP Social History Tobacco Use [...] [facility] [place] [facility] [address] [facility] [address] [place] [address] Theodore Arias MD [address] [facility] [address] [place] [address] documented as of this encounter Visit Diagnoses Not on filedocumented in this encounter Care Teams Carbide Die Maker Relationship Specialty Start Date End Date Silvestre Tamayo MD PCP - General Family Medicine 03/05/23 03/12/24 Marisela Falk NP [address] [place] [address] Referring Physician Family Medicine 03/13/24 documented as of this encounter
--- OUTSIDE RECORDS SUMMARY | 2025-03-22 12:29 | XMS_ITS | Clinical Summary ---
Author Organization [facility] Address [address] [place] [address] Care Team Providers Care Ash Conveyor Operator Name Role Phone Tiffanie Guerrero MD Primary Care Provider [phone] Allergies Active Allergy Reactions Criticality Noted Date [...] this topic Medical Devices Implanted Type Area Temperature Inspector Device Identifier Shelf Expiration Date Model / Serial / Lot Palacos R+G 1x40 Single With Gentamicin - [id number] Implanted:Qty: 3 on 01/23/2022 by González Pendleton MD at [facility] Other Right: Knee 04/30/2025 / / [id number] Revision Crs Femoral Size 5 Right Implanted:Qty: 1 on 01/23/2022 by González Pendleton MD at [facility] Right: Knee DEPUY 09/28/2030 1504-40-205 / / [id number] Revision Crs Rotating Platform Insert Size 5 10mm Aox Implanted:Qty: 1 on 01/23/2022 by González Pendleton MD at [facility] Right: Knee DEPUY 04/30/2026 1517-10-510 / / [id number] Patella - Knee - [id number] Implanted:Qty: 1 on 01/23/2022 by González Pendleton MD at [facility] Right: Knee DEPUY 08/28/2026 1518-20-035 / / [id number] Pressfit Stem - Knee - [id number] Implanted:Qty: 1 on 01/23/2022 by González Pendleton MD at [facility] Right: Knee DEPUY 11/28/2030 1513-10-060 / / [id number] Revision Tibial Sleeve Porocoat Partially Coated 29mm Implanted:Qty: 1 on 01/23/2022 by González Pendleton MD at [facility] Right: Knee DEPUY 10/28/2028 1511-11-101 / / [id number] Revision Tibial Base Rotating Platform Size 3 Implanted:Qty: 1 on 01/23/2022 by González Pendleton MD at [facility] Right: Knee DEPUY 09/29/2031 1506-60-003 / / [id number] Pressfit Stem - Knee - [id number] Implanted:Qty: 1 on 01/23/2022 by González Pendleton MD at [facility] Right: Knee DEPUY 09/28/2030 1513-14-060 / / [id number] Revision Distal Femoral Augment Size 5 12mm Implanted:Qty: 1 on 01/23/2022 by González Pendleton MD at [facility] Right: Knee DEPUY 03/30/2028 1547-05-003 / / [id number] Revision Posterior Femoral Augment Size 5 4mm Implanted:Qty: 1 on 01/23/2022 by González Pendleton MD at [facility] Right: Knee DEPUY 08/28/2030 1549-05-001 / / [id number] Revision Offset Stem Adaptor 4mm Implanted:Qty: 1 on 01/23/2022 by González Pendleton MD at [facility] Right: Knee DEPUY 11/29/2027 1513-04-000 / / [id number] Insurance [address] [place], [place] [address] PPO POS Advance Directives For more information, please contact: [phone] (7:30 AM - 6PM [facility], Saturday-Saturday) * Full Code (Latest Code Status on File) Date Activated Date Inactivated Comments 01/23/2022 2:13 PM Care Teams Ash Conveyor Operator Relationship Specialty Start Date End Date Tiffanie Guerrero MD PCP - General Family Medicine 01/11/22
--- OUTSIDE RECORDS SUMMARY | 2025-03-22 12:29 | XMS_ITS | Patient Health Record ---
Author Organization The [facility] in [place] Address [address] [place] [address] Care Team Providers Care Coroner Name Role Phone Ricardo Moran Primary Care Provider Danny Dupree Hanna [phone] Allergies Allergen (clinical drug ingredient) Drug/Non Drug Allergy documented on EMR Reaction Allergy Type Onset Date Status Keflex hives Drug Allergy Active Penicillin hives Drug Allergy Active Results Component Value Reference Range Notes COVID-19, Flu A+B IH Reviewed date:07/05/2024 04:58:06 PM Interpretation: Performing Lab: Notes/Report: COVID - FLU A - FLU B - Control + CRP Reviewed date:03/18/2025 01:13:08 PM Interpretation: Performing Lab: Notes/Report: [facility] , C Reactive Protein 5.93 <=0.50 mg/dL Performing Lab: see note ML - [facility] Blood Culture 2 Reviewed date:03/21/2025 11:14:39 AM Interpretation: Performing Lab: Notes/Report: [facility] , Blood Culture 2 See Below For Report Blood Culture 2 NG3D NO GROWTH AT 36-48 HOURS. FINAL TO FOLLOW.^NO GROWTH AT 36-48 HOURS. FINAL TO FOLLOW. Performing Lab: see note ML - [facility] GLYCOHEMOGLOBIN A1C Reviewed date:08/24/2024 02:01:29 PM Interpretation: Performing Lab: Notes/Report: [facility] , Glycohemoglobin A1C 5.8 4.5-6.2 % ADA RECOMMENDED LIMIT 4.0 - 6.0 ADA THERAPEUTIC TARGET < 7.0 ACTION SUGGESTED > 7.0 Estimated Average Glucose 120 Performing Lab: see note ML - [facility] Manual Differential Reviewed date:08/24/2024 02:01:29 PM Interpretation: Performing Lab: Notes/Report: [facility] , Segmented Neutrophils % Manual 94.0 43.0-75.0 Band Neutrophils % 1.0 0-5 % Lymphocytes Percent Manual 3.0 20.5-60.0 % Monocytes Percent Manual 2.0 1.7-12.0 % Eosinophils Percent Manual 0.0 0.9-7.0 % Basophils Percent Manual 0.0 0.2-2.0 % Segmented Neut Absolute Manual 18.51 1.4-6.5 10 3/uL Band Neutrophils Absolute 0.2 0.0-0.3 10 3/uL Lymphocytes Absolute Manual 0.59 1.20-3.80 10 3/uL Monocytes Absolute Manual 0.39 0.30-0.80 10 3/uL Eosinophils Absolute Manual 0.00 0.00-0.70 10 3/uL Basophils Abs Manual 0.00 0.00-0.10 10 3/uL Performing Lab: see note ML - [facility] CBC AUTO DIFF Reviewed date:03/18/2025 01:13:08 PM Interpretation: Performing Lab: Notes/Report: [facility] , White Blood Count 12.3 4.0-11.0 10 3/uL Red Blood Count 3.82 4.20-5.40 10 6/uL Hemoglobin 11.2 12.0-16.0 g/dL Hematocrit 34.4 36.0-48.0 % Mean Corpuscular Volume 90.1 81.0-99.0 fL Mean Corpuscular Hemoglobin 29.3 26.7-34.0 pg Mean Corpuscular HGB Conc 32.6 29.9-35.2 g/dL Red Cell Distribution Width 15.0 11.0-15.0 % Platelet Count 297 150-450 10 3/uL Mean Platelet Volume 9.0 9.5-13.5 fL Neutrophils Percent Auto 78.2 43.0-75.0 % Lymphocytes Percent Auto 13.9 20.5-60.0 % Monocytes Percent Auto 6.6 1.7-12.0 % Eosinophils Percent Auto 0.4 0.9-7.0 % Basophils Percent Auto 0.2 0.2-2.0 % Immature Granulocytes Pct Auto 0.7 0.0-0.5 % Neutrophils Absolute Auto 9.6 1.4-6.5 10 3/uL Lymphocytes Absolute Auto 1.7 1.2-3.8 10 3/uL Monocytes Absolute Auto 0.8 0.3-0.8 10 3/uL Eosinophils Absolute Auto 0.1 0.0-0.7 10 3/uL Basophils Absolute Auto 0.0 0.0-0.1 10 3/uL Immature Granulocytes Abs Auto 0.09 0.00-0.03 10 3/uL Performing Lab: see note ML - [facility] Blood Culture 1 Reviewed date:03/21/2025 11:14:39 AM Interpretation: Performing Lab: Notes/Report: [facility] , Blood Culture 1 See Below For Report Blood Culture 1 NG3D NO GROWTH AT 36-48 HOURS. FINAL TO FOLLOW.^NO GROWTH AT 36-48 HOURS. FINAL TO FOLLOW. Performing Lab: see note ML - [facility] Erythrocyte Sedimentation Ra te Reviewed date:03/18/2025 01:13:08 PM Interpretation: Performing Lab: Notes/Report: [facility] , Erythrocyte Sedimentation Rate 36 <=30 mm/hr Performing Lab: see note - [facility] CT KNEE LT WO CON Reviewed date:03/18/2025 01:13:08 PM Interpretation: Performing Lab: Notes/Report: Source Facility: [place] [address] [place] [address] CT Scan Report Signed Patient: IZABELLA GOMEZ MR#: [id number] : 1960 Acct:[id number] Age/Sex: 64 / F ADM Date: 03/18/25 Loc: CT Attending Dr: Chase Moran M.D. Ordering Physician: Chase Moran M.D. Date of Service: 03/18/25 Procedure(s): CT knee LT wo con Accession Number(s): [id number] cc: Chase Moran M.D. [place] [address] Patient Name: IZABELLA GOMEZ MRN: [id number] date: 1960 Sex: F Assigned Patient Location: CT Current Patient Location: CT Accession/Order Number: [id number] Exam Date: 03/18/2025 11:12 Report Date: 03/18/2025 12:15 At the request of: CHASE MORAN MD Procedure: CT knee LT wo con CT LEFT KNEE WITHOUT CONTRAST CLINICAL DATA: Left knee pain and swelling since fall 6 days ago. Erythema since yesterday. Prior medial knee hemiarthroplasty. COMPARISON: None Spiral axial unenhanced images were obtained through the knee. Sagittal, coronal and 3-D volume rendered reconstructions were reviewed. This CT exam was performed using one or more following dose reduction techniques: Automated exposure control, adjustment of the mA and/or kV according to patient size, or use of iterative reconstruction technique. There is medial hemiknee arthroplasty. As visualized, the hardware appears intact and in appropriate position however there is associated streak artifact. There is no obvious complication. No acute fractures, dislocation or bony destruction are noted. The lateral tibiofemoral and patellofemoral joint spaces are maintained. There is minimal marginal spurring. There is a trace amount of joint fluid. There is subcutaneous edema, greatest along the anterolateral aspect of the knee. There is a prepatellar fluid collection which extends from the top of patella down to the tibial tubercle over a length of approximately 8.5 cm. Although hematoma is possible given the history of recent trauma, the collection is not hyperdense and is closer to simple fluid. This could be prepatellar bursitis. Clinical correlation is suggested. No obvious Mendiola's cyst is seen. CT/CT knee LT wo con IMPRESSION: MEDIAL KNEE HEMIARTHROPLASTY, WITHOUT OBVIOUS COMPLICATION. NO ACUTE BONY INJURY. SUBCUTANEOUS EDEMA AND PREPATELLAR FLUID COLLECTION, POSSIBLY BURSITIS. CLINICAL CORRELATION IS SUGGESTED. Impression dictated by: Marisa Merlos M.D. 03/18/2025 12:15 PM Dictation Location: [place] [address] Electronically authenticated by: [id number] Y Date: 03/18/2025 12:15 Dictated By: Marisa Merlos M.D. Signed By: 03/18/25 1217 DD/ 1215 TD/TT: [employer] Equipment Operator: TSH Reviewed date:08/24/2024 02:01:29 PM Interpretation: Performing Lab: Notes/Report: [facility] , Thyroid Stimulating Hormone 0.059 0.358-3.740 uIU/mL Performing Lab: see note ML - [facility] T4 Reviewed date:08/24/2024 02:01:29 PM Interpretation: Performing Lab: Notes/Report: [facility] , T4 Thyroxine 13.10 4.80-13.90 ug/dL Performing Lab: see note [facility] PROF 14(COMP METB) Reviewed date:08/24/2024 02:01:29 PM Interpretation: Performing Lab: Notes/Report: [facility] , Sodium 140 136-145 mmol/L Potassium 3.7 3.5-5.1 mmol/L Chloride 102 98-107 mmol/L Carbon Dioxide 24.8 21.0-32.0 mmol/L Anion Gap 16.9 Glucose 185 74-106 mg/dL Blood Urea Nitrogen 19.0 7.0-18.0 mg/dL Creatinine 1.04 0.55-1.02 mg/dL Estimated GFR ( Cherelle >60 >=60 mL/min/1.73m 2 Estimated GFR (Non- Maryjo 53 >=60 mL/min/1.73m 2 BUN Creatinine Ratio 18.3 Calcium 9.0 8.5-10.1 mg/dL Bilirubin Total 0.9 0.2-1.0 mg/dL Aspartate Amino Transferase 14 15-37 U/L Alanine Aminotransferase 10 14-59 U/L Alkaline Phosphatase 131 46-116 U/L Total Protein 6.6 6.4-8.2 g/dL Albumin Level 2.6 3.4-5.0 g/dL Globulin 4.0 Albumin Globulin Ratio 0.7 Performing Lab: see note ML - [facility] LIPID PROFILE Reviewed date:08/24/2024 02:01:29 PM Interpretation: Performing Lab: Notes/Report: [facility] , Triglycerides 61 <=150 mg/dL Cholesterol 145 <=200 mg/dL HDL Cholesterol 52 40-60 mg/dL > or =60 mg/dl - LOW CARDIOVASCULAR RISK <40 mg/dl - HIGH CARDIOVASCULAR RISK LDL Cholesterol Calculated 80.8 <100 mg/dl OPTIMAL 100-129 mg/dl NEAR OR ABOVE OPTIMAL 130-159 mg/dl BORDERLINE HIGH 160-189 mg/dl HIGH >190 mg/dl VERY HIGH VLDL CHOLESTEROL 12.2 Chol HDL Ratio 2.8 3.3 - 4.4 LOW RISK 4.4 - 7.1 AVERAGE RISK 7.1 - 11.0 MODERATE RISK >11.0 HIGH RISK Performing Lab: see note ML - [facility] FREE T3 Reviewed date:08/24/2024 02:01:29 PM Interpretation: Performing Lab: Notes/Report: [facility] , Free T3 1.49 2.18-3.98 pg/mL Performing Lab: see note ML - [facility] CBC AUTO DIFF Reviewed date:08/24/2024 02:01:29 PM Interpretation: Performing Lab: Notes/Report: [facility] , White Blood Count 19.7 4.0-11.0 10 3/uL Red Blood Count 3.98 4.20-5.40 10 6/uL Hemoglobin 10.8 12.0-16.0 g/dL Hematocrit 33.0 36.0-48.0 % Mean Corpuscular Volume 82.9 81.0-99.0 fL Mean Corpuscular Hemoglobin 27.1 26.7-34.0 pg Mean Corpuscular HGB Conc 32.7 29.9-35.2 g/dL Red Cell Distribution Width 19.3 11.0-15.0 % Platelet Count 272 150-450 10 3/uL Mean Platelet Volume 8.8 9.5-13.5 fL Performing Lab: see note - [facility] XR chest 2V Reviewed date:07/05/2024 04:58:06 PM Interpretation: Performing Lab: Notes/Report: Source Facility: [facility] [place] [address] [place] [address] XRay Report Signed Patient: IZABELLA GOMEZ MR#: [id number] : 1960 Acct:[id number] Age/Sex: 63 / F ADM Date: 07/03/24 Loc: RAD Attending Dr: Chase Moran M.D. Ordering Physician: Chase Moran M.D. Date of Service: 07/03/24 Procedure(s): XR chest 2V Accession Number(s): [id number] cc: Chase Moran M.D. The [place] [id number] Patient Name: IZABELLA GOMEZ MRN: [id number] date: 1960 Sex: F Assigned Patient Location: [facility] Current Patient Location: RAD Accession/Order Number: [id number] Exam Date: 07/03/2024 15:27 Report Date: 07/05/2024 11:04 At the request of: CHASE MORAN Procedure: XR chest 2V EXAM: XR chest 2V HISTORY: R05.9, cough COMPARISON: 10/18/2023 TECHNIQUE: 2 views FINDINGS: Chronic rotator cuff tear seen on the right. Patient status post left shoulder arthroplasty. There has been resorption or surgical removal of the distal aspect of the left clavicle. Chronic-appearing thoracic compression deformities are seen. No focal consolidation seen. No pleural effusions are noted. XR/XR chest 2V IMPRESSION: No acute cardiopulmonary pathology. Chronic changes as noted above. Electronically authenticated by: Holly MARTINO Date: 07/05/2024 11:04 Dictated By: Holly Martino M.D. 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 [address] PH:[phone] Notes/Report: GENTAMICIN LEVEL <0.3 0.0-12.0 ug/mL DOSE INFO last dose 05/21/24 PERFORMED AT [address] [place] [address] CREATININE Reviewed date:05/24/2024 08:34:53 PM Interpretation: Performing Lab:[facility], [address] [place], [place] [address], [place]. [address] PH:[phone] Notes/Report: CREATININE 0.94 0.40-1.00 mg/dL METHOD TRACE ABLE TO IDMS STANDARD eGFR (CKD-EPI) NON-RACE DEPENDENT 68 >59 ml/min/1.73sq.m Reported eGFR is based on the CKD-EPI 2020 equation that does not use a race coefficient. PERFORMED AT [address] [place] [address] CBC AND AUTO DIFF * Reviewed date:05/24/2024 08:34:53 PM Interpretation: Performing Lab:[facility], [address] [address] [address] [place]. [address] PH:[phone] Notes/Report: WBC COUNT 8.2 4.0-11.0 X10E9/L RBC COUNT 3.77 3.80-5.20 X10E12/L HEMOGLOBIN 10.5 11.7-15.5 g/dL HEMATOCRIT 32.4 35-47 % MCV 86 80-100 fL MCH 27.8 27-34 pg MCHC 32.4 32-36 g/dL RDW 16.1 11.5-15.0 % PLATELET COUNT 351 150-450 X10E9/L MPV 8.2 7-12 fL % NEUTROPHILS 63.4 % LYMPHOCYTES 27.6 % MONOCYTES 5.8 % EOSINOPHILS 2.6 % BASOPHILS 0.6 ABSOLUTE NEUTROPHIL 5.2 1.5-6.6 X10E9/L ABSOLUTE LYMPHOCYTE 2.3 1.0-3.5 X10E9/L ABSOLUTE MONOCYTE 0.5 0-0.9 X10E9/L ABSOLUTE EOSINOPHIL 0.2 0.0-0.4 X10E9/L ABSOLUTE BASOPHIL 0.0 0.0-0.2 X10E9/L PERFORM ED AT [address] [place] [address] PROF CHEM 8 (BAS METB) Reviewed date:05/15/2024 06:24:30 AM Interpretation: Performing Lab: Notes/Report: [facility] , Sodium 144 136-145 mmol/L Potassium 3.7 3.5-5.1 mmol/L Chloride 105 98-107 mmol/L Carbon Dioxide 28.5 21.0-32.0 mmol/L Anion Gap 14.2 Glucose 97 74-106 mg/dL Blood Urea Nitrogen 13.0 7.0-18.0 mg/dL Creatinine 0.67 0.55-1.02 mg/dL Estimated GFR ( Cherelle >60 >=60 mL/min/1.73m 2 Estimated GFR (Non- Maryjo >60 >=60 mL/min/1.73m 2 BUN Creatinine Ratio 19.4 Calcium 9.3 8.5-10.1 mg/dL Performing Lab: see note - [facility] CRP Reviewed date:05/15/2024 06:24:29 AM Interpretation: Performing Lab: Notes/Report: [facility] , C Reactive Protein 2.17 <=0.50 mg/dL Performing Lab: see note ML - [facility] CBC AUTO DIFF Reviewed date:05/15/2024 06:27:16 AM Interpretation: Performing Lab: Notes/Report: [facility] , White Blood Count 8.8 4.0-11.0 10 3/uL Red Blood Count 3.31 4.20-5.40 10 6/uL Hemoglobin 9.2 12.0-16.0 g/dL Hematocrit 29.7 36.0-48.0 % Mean Corpuscular Volume 89.7 81.0-99.0 fL Mean Corpuscular Hemoglobin 27.8 26.7-34.0 pg Mean Corpuscular HGB Conc 31.0 29.9-35.2 g/dL Red Cell Distribution Width 14.7 11.0-15.0 % Platelet Count 300 150-450 10 3/uL Mean Platelet Volume 9.5 9.5-13.5 fL Neutrophils Percent Auto 70.5 43.0-75.0 % Lymphocytes Percent Auto 17.1 20.5-60.0 % Monocytes Percent Auto 7.6 1.7-12.0 % Eosinophils Percent Auto 3.2 0.9-7.0 % Basophils Percent Auto 0.5 0.2-2.0 % Immature Granulocytes Pct Auto 1.1 0.0-0.5 % Neutrophils Absolute Auto 6.2 1.4-6.5 10 3/uL Lymphocytes Absolute Auto 1.5 1.2-3.8 10 3/uL Monocytes Absolute Auto 0.7 0.3-0.8 10 3/uL Eosinophils Absolute Auto 0.3 0.0-0.7 10 3/uL Basophils Absolute Auto 0.0 0.0-0.1 10 3/uL Immature Granulocytes Abs Auto 0.10 0.00-0.03 10 3/uL Performing Lab: see note ML - [facility] Aerobic Culture Reviewed date:05/23/2024 08:59:13 AM Interpretation: Performing Lab: Notes/Report: [facility] , Aerobic Culture See Below For Report Aerobic Culture Organism: Staphylococcus aureus : O:BETAGB Isolated O:STAAUR Isolated Organism: 2.2 Antibiotic Interpretation ISIDRA Status Ciprofloxacin Ciprofloxacin R F Erythromycin Erythromycin R F Gentamicin Gentamicin S F Levofloxacin Levofloxacin R F Linezolid Linezolid S F Moxifloxacin Moxifloxacin R F Oxacillin Oxacillin S F Penicillin Penicillin R F Quinupristin/Dalfopris tin Quinupristin/Dalfopris tin S F Rifampin Rifampin S F Tetracycline Tetracycline R F Trimethoprim/Sulfameth oxazole Trimethoprim/Sulfameth oxazole R F Vancomycin Vancomycin S F Clindamycin Clindamycin R F Aerobic Culture *ABNORMAL* Aerobic Culture Organism: Staphylococcus aureus : O:BETAGB Isolated O:STAAUR Isolated Organism: 2.2 Antibiotic Interpretation ISIDRA Status Ciprofloxacin Ciprofloxacin R F Erythromycin Erythromycin R F Gentamicin Gentamicin S F Levofloxacin Levofloxacin R F Linezolid Linezolid S F Moxifloxacin Moxifloxacin R F Oxacillin Oxacillin S F Penicillin Penicillin R F Quinupristin/Dalfopris tin Quinupristin/Dalfopris tin S F Rifampin Rifampin S F Tetracycline Tetracycline R F Trimethoprim/Sulfameth oxazole Trimethoprim/Sulfameth oxazole R F Vancomycin Vancomycin S F Clindamycin Clindamycin R F Aerobic Culture Heavy growth Aerobic Culture Organism: Staphylococcus aureus : O:BETAGB Isolated O:STAAUR Isolated Organism: 2.2 Antibiotic Interpretation ISIRDA Status Ciprofloxacin Ciprofloxacin R F Erythromycin Erythromycin R F Gentamicin Gentamicin S F Levofloxacin Levofloxacin R F Linezolid Linezolid S F Moxifloxacin Moxifloxacin R F Oxacillin Oxacillin S F Penicillin Penicillin R F Quinupristin/Dalfopris tin Quinupristin/Dalfopris tin S F Rifampin Rifampin S F Tetracycline Tetracycline R F Trimethoprim/Sulfameth oxazole Trimethoprim/Sulfameth oxazole R F Vancomycin Vancomycin S F Clindamycin Clindamycin R F Aerobic Culture Organism: Beta hemolytic Strep group B : Aerobic Culture Organism: Staphylococcus aureus : O:BETAGB Isolated O:STAAUR Isolated Organism: 2.2 Antibiotic Interpretation ISIDRA Status Ciprofloxacin Ciprofloxacin R F Erythromycin Erythromycin R F Gentamicin Gentamicin S F Levofloxacin Levofloxacin R F Linezolid Linezolid S F Moxifloxacin Moxifloxacin R F Oxacillin Oxacillin S F Penicillin Penicillin R F Quinupristin/Dalfopris tin Quinupristin/Dalfopris tin S F Rifampin Rifampin S F Tetracycline Tetracycline R F Trimethoprim/Sulfameth oxazole Trimethoprim/Sulfameth oxazole R F Vancomycin Vancomycin S F Clindamycin Clindamycin R F Aerobic Culture *ABNORMAL* Aerobic Culture Organism: Staphylococcus aureus : O:BETAGB Isolated O:STAAUR Isolated Organism: 2.2 Antibiotic Interpretation ISIDRA Status Ciprofloxacin Ciprofloxacin R F Erythromycin Erythromycin R F Gentamicin Gentamicin S F Levofloxacin Levofloxacin R F Linezolid Linezolid S F Moxifloxacin Moxifloxacin R F Oxacillin Oxacillin S F Penicillin Penicillin R F Quinupristin/Dalfopris tin Quinupristin/Dalfopris tin S F Rifampin Rifampin S F Tetracycline Tetracycline R F Trimethoprim/Sulfameth oxazole Trimethoprim/Sulfameth oxazole R F Vancomycin Vancomycin S F Clindamycin Clindamycin R F Aerobic Culture Heavy growth Aerobic Culture Organism: Staphylococcus aureus : O:BETAGB Isolated O:STAAUR Isolated Organism: 2.2 Antibiotic Interpretation ISIDRA Status Ciprofloxacin Ciprofloxacin R F Erythromycin Erythromycin R F Gentamicin Gentamicin S F Levofloxacin Levofloxacin R F Linezolid Linezolid S F Moxifloxacin Moxifloxacin R F Oxacillin Oxacillin S F Penicillin Penicillin R F Quinupristin/Dalfopris tin Quinupristin/Dalfopris tin S F Rifampin Rifampin S F Tetracycline Tetracycline R F Trimethoprim/Sulfameth oxazole Trimethoprim/Sulfameth oxazole R F Vancomycin Vancomycin S F Clindamycin Clindamycin R F Aerobic Culture Penicillin and ampicillin are drugs of choice for Aerobic Culture Organism: Staphylococcus aureus : O:BETAGB Isolated O:STAAUR Isolated Organism: 2.2 Antibiotic Interpretation ISIDRA Status Ciprofloxacin Ciprofloxacin R F Erythromycin Erythromycin R F Gentamicin Gentamicin S F Levofloxacin Levofloxacin R F Linezolid Linezolid S F Moxifloxacin Moxifloxacin R F Oxacillin Oxacillin S F Penicillin Penicillin R F Quinupristin/Dalfopris tin Quinupristin/Dalfopris tin S F Rifampin Rifampin S F Tetracycline Tetracycline R F Trimethoprim/Sulfameth oxazole Trimethoprim/Sulfameth oxazole R F Vancomycin Vancomycin S F Clindamycin Clindamycin R F Aerobic Culture treatment of beta-hemolytic streptococcal infections. Aerobic Culture Organism: Staphylococcus aureus : O:BETAGB Isolated O:STAAUR Isolated Organism: 2.2 Antibiotic Interpretation ISIDRA Status Ciprofloxacin Ciprofloxacin R F Erythromycin Erythromycin R F Gentamicin Gentamicin S F Levofloxacin Levofloxacin R F Linezolid Linezolid S F Moxifloxacin Moxifloxacin R F Oxacillin Oxacillin S F Penicillin Penicillin R F Quinupristin/Dalfopris tin Quinupristin/Dalfopris tin S F Rifampin Rifampin S F Tetracycline Tetracycline R F Trimethoprim/Sulfameth oxazole Trimethoprim/Sulfameth oxazole R F Vancomycin Vancomycin S F Clindamycin Clindamycin R F Aerobic Culture Susceptibility testi ng of penicillins and other beta- Aerobic Culture Organism: Staphylococcus aureus : O:BETAGB Isolated O:STAAUR Isolated Organism: 2.2 Antibiotic Interpretation ISIDRA Status Ciprofloxacin Ciprofloxacin R F Erythromycin Erythromycin R F Gentamicin Gentamicin S F Levofloxacin Levofloxacin R F Linezolid Linezolid S F Moxifloxacin Moxifloxacin R F Oxacillin Oxacillin S F Penicillin Penicillin R F Quinupristin/Dalfopris tin Quinupristin/Dalfopris tin S F Rifampin Rifampin S F Tetracycline Tetracycline R F Trimethoprim/Sulfameth oxazole Trimethoprim/Sulfameth oxazole R F Vancomycin Vancomycin S F Clindamycin Clindamycin R F Aerobic Culture lactam agents approv ed by the FDA for treatment of Aerobic Culture Organism: Staphylococcus aureus : O:BETAGB Isolated O:STAAUR Isolated Organism: 2.2 Antibiotic Interpretation ISIDRA Status Ciprofloxacin Ciprofloxacin R F Erythromycin Erythromycin R F Gentamicin Gentamicin S F Levofloxacin Levofloxacin R F Linezolid Linezolid S F Moxifloxacin Moxifloxacin R F Oxacillin Oxacillin S F Penicillin Penicillin R F Quinupristin/Dalfopris tin Quinupristin/Dalfopris tin S F Rifampin Rifampin S F Tetracycline Tetracycline R F Trimethoprim/Sulfameth oxazole Trimethoprim/Sulfameth oxazole R F Vancomycin Vancomycin S F Clindamycin Clindamycin R F Aerobic Culture beta-hemolytic streptococcal infections need not be Aerobic Culture Organism: Staphylococcus aureus : O:BETAGB Isolated O:STAAUR Isolated Organism: 2.2 Antibiotic Interpretation ISIDRA Status Ciprofloxacin Ciprofloxacin R F Erythromycin Erythromycin R F Gentamicin Gentamicin S F Levofloxacin Levofloxacin R F Linezolid Linezolid S F Moxifloxacin Moxifloxacin R F Oxacillin Oxacillin S F Penicillin Penicillin R F Quinupristin/Dalfopris tin Quinupristin/Dalfopris tin S F Rifampin Rifampin S F Tetracycline Tetracycline R F Trimethoprim/Sulfameth oxazole Trimethoprim/Sulfameth oxazole R F Vancomycin Vancomycin S F Clindamycin Clindamycin R F Aerobic Culture performed routinely because nonsusceptible isolates Aerobic Culture Organism: Staphylococcus aureus : O:BETAGB Isolated O:[facility] Isolated Organism: 2.2 Antibiotic Interpretation ISIDRA Status Ciprofloxacin Ciprofloxacin R F Erythromycin Erythromycin R F Gentamicin Gentamicin S F Levofloxacin Levofloxacin R F Linezolid Linezolid S F Moxifloxacin Moxifloxacin R F Oxacillin Oxacillin S F Penicillin Penicillin R F Quinupristin/Dalfopris tin Quinupristin/Dalfopris tin S F Rifampin Rifampin S F Tetracycline Tetracycline R F Trimethoprim/Sulfameth oxazole Trimethoprim/Sulfameth oxazole R F Vancomycin Vancomycin S F Clindamycin Clindamycin R F Aerobic Culture are extremely rare i n any beta-hemolytic streptococcus Aerobic Culture Organism: Staphylococcus aureus : O:BETAGB Isolated O:[facility] Isolated Organism: 2.2 Antibiotic Interpretation ISIDRA Status Ciprofloxacin Ciprofloxacin R F Erythromycin Erythromycin R F Gentamicin Gentamicin S F Levofloxacin Levofloxacin R F Linezolid Linezolid S F Moxifloxacin Moxifloxacin R F Oxacillin Oxacillin S F Penicillin Penicillin R F Quinupristin/Dalfopris tin Quinupristin/Dalfopris tin S F Rifampin Rifampin S F Tetracycline Tetracycline R F Trimethoprim/Sulfameth oxazole Trimethoprim/Sulfameth oxazole R F Vancomycin Vancomycin S F Clindamycin Clindamycin R F Aerobic Culture and have not been reported for Streptococcus pyogenes Aerobic Culture Organism: Staphylococcus aureus : O:BETAGB Isolated O:[facility] Isolated Organism: 2.2 Antibiotic Interpretation ISIDRA Status Ciprofloxacin Ciprofloxacin R F Erythromycin Erythromycin R F Gentamicin Gentamicin S F Levofloxacin Levofloxacin R F Linezolid Linezolid S F Moxifloxacin Moxifloxacin R F Oxacillin Oxacillin S F Penicillin Penicillin R F Quinupristin/Dalfopris tin Quinupristin/Dalfopris tin S F Rifampin Rifampin S F Tetracycline Tetracycline R F Trimethoprim/Sulfameth oxazole Trimethoprim/Sulfameth oxazole R F Vancomycin Vancomycin S F Clindamycin Clindamycin R F Aerobic Culture (group A). (CLSI) Aerobic Culture Organism: Staphylococcus aureus : O:BETAGB Isolated O:STAAUR Isolated Organism: 2.2 Antibiotic Interpretation ISIDRA Status Ciprofloxacin Ciprofloxacin R F Erythromycin Erythromycin R F Gentamicin Gentamicin S F Levofloxacin Levofloxacin R F Linezolid Linezolid S F Moxifloxacin Moxifloxacin R F Oxacillin Oxacillin S F Penicillin Penicillin R F Quinupristin/Dalfopris tin Quinupristin/Dalfopris tin S F Rifampin Rifampin S F Tetracycline Tetracycline R F Trimethoprim/Sulfameth oxazole Trimethoprim/Sulfameth oxazole R F Vancomycin Vancomycin S F Clindamycin Clindamycin R F Aerobic Culture Beta hemolytic Strep group B Aerobic Culture Organism: Staphylococcus aureus : O:BETAGB Isolated O:STAAUR Isolated Organism: 2.2 Antibiotic Interpretation ISIDRA Status Ciprofloxacin Ciprofloxacin R F Erythromycin Erythromycin R F Gentamicin Gentamicin S F Levofloxacin Levofloxacin R F Linezolid Linezolid S F Moxifloxacin Moxifloxacin R F Oxacillin Oxacillin S F Penicillin Penicillin R F Quinupristin/Dalfopris tin Quinupristin/Dalfopris tin S F Rifampin Rifampin S F Tetracycline Tetracycline R F Trimethoprim/Sulfameth oxazole Trimethoprim/Sulfameth oxazole R F Vancomycin Vancomycin S F Clindamycin Clindamycin R F Aerobic Culture Staphylococcus aureus Aerobic Culture Organism: Staphylococcus aureus : O:BETAGB Isolated O:STAAUR Isolated Organism: 2.2 Antibiotic Interpretation ISIDRA Status Ciprofloxacin Ciprofloxacin R F Erythromycin Erythromycin R F Gentamicin Gentamicin S F Levofloxacin Levofloxacin R F Linezolid Linezolid S F Moxifloxacin Moxifloxacin R F Oxacillin Oxacillin S F Penicillin Penicillin R F Quinupristin/Dalfopris tin Quinupristin/Dalfopris tin S F Rifampin Rifampin S F Tetracycline Tetracycline R F Trimethoprim/Sulfameth oxazole Trimethoprim/Sulfameth oxazole R F Vancomycin Vancomycin S F Clindamycin Clindamycin R F Aerobic Culture Organism: Staphylococcus aureus : Aerobic Culture Organism: Staphylococcus aureus : O:BETAGB Isolated O:STAAUR Isolated Organism: 2.2 Antibiotic Interpretation ISIDRA Status Ciprofloxacin Ciprofloxacin R F Erythromycin Erythromycin R F Gentamicin Gentamicin S F Levofloxacin Levofloxacin R F Linezolid Linezolid S F Moxifloxacin Moxifloxacin R F Oxacillin Oxacillin S F Penicillin Penicillin R F Quinupristin/Dalfopris tin Quinupristin/Dalfopris tin S F Rifampin Rifampin S F Tetracycline Tetracycline R F Trimethoprim/Sulfameth oxazole Trimethoprim/Sulfameth oxazole R F Vancomycin Vancomycin S F Clindamycin Clindamycin R F Aerobic Culture *ABNORMAL* Aerobic Culture Organism: Staphylococcus aureus : O:BETAGB Isolated O:STAAUR Isolated Organism: 2.2 Antibiotic Interpretation ISIDRA Status Ciprofloxacin Ciprofloxacin R F Erythromycin Erythromycin R F Gentamicin Gentamicin S F Levofloxacin Levofloxacin R F Linezolid Linezolid S F Moxifloxacin Moxifloxacin R F Oxacillin Oxacillin S F Penicillin Penicillin R F Quinupristin/Dalfopris tin Quinupristin/Dalfopris tin S F Rifampin Rifampin S F Tetracycline Tetracycline R F Trimethoprim/Sulfameth oxazole Trimethoprim/Sulfameth oxazole R F Vancomycin Vancomycin S F Clindamycin Clindamycin R F Aerobic Culture Based on susceptibility to oxacillin this isolate would be Aerobic Culture Organism: Staphylococcus aureus : O:BETAGB [facility]olated [facility] Isolated Organism: 2.2 Antibiotic Interpretation ISIDRA Status Ciprofloxacin Ciprofloxacin R F Erythromycin Erythromycin R F Gentamicin Gentamicin S F Levofloxacin Levofloxacin R F Linezolid Linezolid S F Moxifloxacin Moxifloxacin R F Oxacillin Oxacillin S F Penicillin Penicillin R F Quinupristin/Dalfopris tin Quinupristin/Dalfopris tin S F Rifampin Rifampin S F Tetracycline Tetracycline R F Trimethoprim/Sulfameth oxazole Trimethoprim/Sulfameth oxazole R F Vancomycin Vancomycin S F Clindamycin Clindamycin R F Aerobic Culture susceptible to: Aerobic Culture Organism: Staphylococcus aureus : O:BETAGB Isolated O:STAR Isolated Organism: 2.2 Antibiotic Interpretation ISIDRA Status Ciprofloxacin Ciprofloxacin R F Erythromycin Erythromycin R F Gentamicin Gentamicin S F Levofloxacin Levofloxacin R F Linezolid Linezolid S F Moxifloxacin Moxifloxacin R F Oxacillin Oxacillin S F Penicillin Penicillin R F Quinupristin/Dalfopris tin Quinupristin/Dalfopris tin S F Rifampin Rifampin S F Tetracycline Tetracycline R F Trimethoprim/Sulfameth oxazole Trimethoprim/Sulfameth oxazole R F Vancomycin Vancomycin S F Clindamycin Clindamycin R F Aerobic Culture *Penicillinase-stabl e penicillins, such as: Aerobic Culture Organism: Staphylococcus aureus : O:BETAGB Isolated O:STAAUR Isolated Organism: 2.2 Antibiotic Interpretation ISIDRA Status Ciprofloxacin Ciprofloxacin R F Erythromycin Erythromycin R F Gentamicin Gentamicin S F Levofloxacin Levofloxacin R F Linezolid Linezolid S F Moxifloxacin Moxifloxacin R F Oxacillin Oxacillin S F Penicillin Penicillin R F Quinupristin/Dalfopris tin Quinupristin/Dalfopris tin S F Rifampin Rifampin S F Tetracycline Tetracycline R F Trimethoprim/Sulfameth oxazole Trimethoprim/Sulfameth oxazole R F Vancomycin Vancomycin S F Clindamycin Clindamycin R F Aerobic Culture Cloxacillin, Dicloxacillin, Nafcillin Aerobic Culture Organism: Staphylococcus aureus : O:BETAGB Isolated O:STAAUR Isolated Organism: 2.2 Antibiotic Interpretation ISIDRA Status Ciprofloxacin Ciprofloxacin R F Erythromycin Erythromycin R F Gentamicin Gentamicin S F Levofloxacin Levofloxacin R F Linezolid Linezolid S F Moxifloxacin Moxifloxacin R F Oxacillin Oxacillin S F Penicillin Penicillin R F Quinupristin/Dalfopris tin Quinupristin/Dalfopris tin S F Rifampin Rifampin S F Tetracycline Tetracycline R F Trimethoprim/Sulfameth oxazole Trimethoprim/Sulfameth oxazole R F Vancomycin Vancomycin S F Clindamycin Clindamycin R F Aerobic Culture *Beta-lactam combination agents, such as: Aerobic Culture Organism: Staphylococcus aureus : O:BETAGB Isolated O:STAAUR Isolated Organism: 2.2 Antibiotic Interpretation ISIDRA Status Ciprofloxacin Ciprofloxacin R F Erythromycin Erythromycin R F Gentamicin Gentamicin S F Levofloxacin Levofloxacin R F Linezolid Linezolid S F Moxifloxacin Moxifloxacin R F Oxacillin Oxacillin S F Penicillin Penicillin R F Quinupristin/Dalfopris tin Quinupristin/Dalfopris tin S F Rifampin Rifampin S F Tetracycline Tetracycline R F Trimethoprim/Sulfameth oxazole Trimethoprim/Sulfameth oxazole R F Vancomycin Vancomycin S F Clindamycin Clindamycin R F Aerobic Culture Amoxicillin-clavulan ic acid, Ampicillin-sulbactam, Aerobic Culture Organism: Staphylococcus aureus : O:BETAGB Isolated O:STAAUR Isolated Organism: 2.2 Antibiotic Interpretation ISIDRA Status Ciprofloxacin Ciprofloxacin R F Erythromycin Erythromycin R F Gentamicin Gentamicin S F Levofloxacin Levofloxacin R F Linezolid Linezolid S F Moxifloxacin Moxifloxacin R F Oxacillin Oxacillin S F Penicillin Penicillin R F Quinupristin/Dalfopris tin Quinupristin/Dalfopris tin S F Rifampin Rifampin S F Tetracycline Tetracycline R F Trimethoprim/Sulfameth oxazole Trimethoprim/Sulfameth oxazole R F Vancomycin Vancomycin S F Clindamycin Clindamycin R F Aerobic Culture Piperacillin-tazobac ta m Aerobic Culture Organism: Staphylococcus aureus : O:BETAGB Isolated O:STAAUR Isolated Organism: 2.2 Antibiotic Interpretation ISIDRA Status Ciprofloxacin Ciprofloxacin R F Erythromycin Erythromycin R F Gentamicin Gentamicin S F Levofloxacin Levofloxacin R F Linezolid Linezolid S F Moxifloxacin Moxifloxacin R F Oxacillin Oxacillin S F Penicillin Penicillin R F Quinupristin/Dalfopris tin Quinupristin/Dalfopris tin S F Rifampin Rifampin S F Tetracycline Tetracycline R F Trimethoprim/Sulfameth oxazole Trimethoprim/Sulfameth oxazole R F Vancomycin Vancomycin S F Clindamycin Clindamycin R F Aerobic Culture *Oral cephems, such as: Aerobic Culture Organism: Staphylococcus aureus : O:BETAGB Isolated O:STAAUR Isolated Organism: 2.2 Antibiotic Interpretation ISIDRA Status Ciprofloxacin Ciprofloxacin R F Erythromycin Erythromycin R F Gentamicin Gentamicin S F Levofloxacin Levofloxacin R F Linezolid Linezolid S F Moxifloxacin Moxifloxacin R F Oxacillin Oxacillin S F Penicillin Penicillin R F Quinupristin/Dalfopris tin Quinupristin/Dalfopris tin S F Rifampin Rifampin S F Tetracycline Tetracycline R F Trimethoprim/Sulfameth oxazole Trimethoprim/Sulfameth oxazole R F Vancomycin Vancomycin S F Clindamycin Clindamycin R F Aerobic Culture Cefaclor, Cefdinir, Cefpodoxime, Cefprozil, Cefuroxime, Aerobic Culture Organism: Staphylococcus aureus : O:BETAGB Isolated O:STAAUR Isolated Organism: 2.2 Antibiotic Interpretation ISIDRA Status Ciprofloxacin Ciprofloxacin R F Erythromycin Erythromycin R F Gentamicin Gentamicin S F Levofloxacin Levofloxacin R F Linezolid Linezolid S F Moxifloxacin Moxifloxacin R F Oxacillin Oxacillin S F Penicillin Penicillin R F Quinupristin/Dalfopris tin Quinupristin/Dalfopris tin S F Rifampin Rifampin S F Tetracycline Tetracycline R F Trimethoprim/Sulfameth oxazole Trimethoprim/Sulfameth oxazole R F Vancomycin Vancomycin S F Clindamycin Clindamycin R F Aerobic Culture Cephalexin, Loracarbef Aerobic Culture Organism: Staphylococcus aureus : O:BETAGB Isolated O:STAAUR Isolated Organism: 2.2 Antibiotic Interpretation ISIDRA Status Ciprofloxacin Ciprofloxacin R F Erythromycin Erythromycin R F Gentamicin Gentamicin S F Levofloxacin Levofloxacin R F Linezolid Linezolid S F Moxifloxacin Moxifloxacin R F Oxacillin Oxacillin S F Penicillin Penicillin R F Quinupristin/Dalfopris tin Quinupristin/Dalfopris tin S F Rifampin Rifampin S F Tetracycline Tetracycline R F Trimethoprim/Sulfameth oxazole Trimethoprim/Sulfameth oxazole R F Vancomycin Vancomycin S F Clindamycin Clindamycin R F Aerobic Culture *Parenteral cephems, such as: Aerobic Culture Organism: Staphylococcus aureus : O:BETAGB Isolated O:STAAUR Isolated Organism: 2.2 Antibiotic Interpretation ISIDRA Status Ciprofloxacin Ciprofloxacin R F Erythromycin Erythromycin R F Gentamicin Gentamicin S F Levofloxacin Levofloxacin R F Linezolid Linezolid S F Moxifloxacin Moxifloxacin R F Oxacillin Oxacillin S F Penicillin Penicillin R F Quinupristin/Dalfopris tin Quinupristin/Dalfopris tin S F Rifampin Rifampin S F Tetracycline Tetracycline R F Trimethoprim/Sulfameth oxazole Trimethoprim/Sulfameth oxazole R F Vancomycin Vancomycin S F Clindamycin Clindamycin R F Aerobic Culture Cefazolin, Cefepime, Cefotaxime, Cefotetan, Ceftaroline, Aerobic Culture Organism: Staphylococcus aureus : O:BETAGB Isolated O:STAAUR Isolated Organism: 2.2 Antibiotic Interpretation ISIDRA Status Ciprofloxacin Ciprofloxacin R F Erythromycin Erythromycin R F Gentamicin Gentamicin S F Levofloxacin Levofloxacin R F Linezolid Linezolid S F Moxifloxacin Moxifloxacin R F Oxacillin Oxacillin S F Penicillin Penicillin R F Quinupristin/Dalfopris tin Quinupristin/Dalfopris tin S F Rifampin Rifampin S F Tetracycline Tetracycline R F Trimethoprim/Sulfameth oxazole Trimethoprim/Sulfameth oxazole R F Vancomycin Vancomycin S F Clindamycin Clindamycin R F Aerobic Culture Ceftizoxime, Ceftriaxone, Cefuroxime Aerobic Culture Organism: Staphylococcus aureus : O:BETAGB Isolated O:STAAUR Isolated Organism: 2.2 Antibiotic Interpretation ISIDRA Status Ciprofloxacin Ciprofloxacin R F Erythromycin Erythromycin R F Gentamicin Gentamicin S F Levofloxacin Levofloxacin R F Linezolid Linezolid S F Moxifloxacin Moxifloxacin R F Oxacillin Oxacillin S F Penicillin Penicillin R F Quinupristin/Dalfopris tin Quinupristin/Dalfopris tin S F Rifampin Rifampin S F Tetracycline Tetracycline R F Trimethoprim/Sulfameth oxazole Trimethoprim/Sulfameth oxazole R F Vancomycin Vancomycin S F Clindamycin Clindamycin R F Aerobic Culture *Carbapenems, such as: Aerobic Culture Organism: Staphylococcus aureus : O:BETAGB Isolated O:STAAUR Isolated Organism: 2.2 Antibiotic Interpretation ISIDRA Status Ciprofloxacin Ciprofloxacin R F Erythromycin Erythromycin R F Gentamicin Gentamicin S F Levofloxacin Levofloxacin R F Linezolid Linezolid S F Moxifloxacin Moxifloxacin R F Oxacillin Oxacillin S F Penicillin Penicillin R F Quinupristin/Dalfopris tin Quinupristin/Dalfopris tin S F Rifampin Rifampin S F Tetracycline Tetracycline R F Trimethoprim/Sulfameth oxazole Trimethoprim/Sulfameth oxazole R F Vancomycin Vancomycin S F Clindamycin Clindamycin R F Aerobic Culture Doripenem, Ertapenem , Imipenem, Meropenem Aerobic Culture Organism: Staphylococcus aureus : O:BETAGB Isolated O:STAAUR Isolated Organism: 2.2 Antibiotic Interpretation ISIDRA Status Ciprofloxacin Ciprofloxacin R F Erythromycin Erythromycin R F Gentamicin Gentamicin S F Levofloxacin Levofloxacin R F Linezolid Linezolid S F Moxifloxacin Moxifloxacin R F Oxacillin Oxacillin S F Penicillin Penicillin R F Quinupristin/Dalfopris tin Quinupristin/Dalfopris tin S F Rifampin Rifampin S F Tetracycline Tetracycline R F Trimethoprim/Sulfameth oxazole Trimethoprim/Sulfameth oxazole R F Vancomycin Vancomycin S F Clindamycin Clindamycin R F Aerobic Culture Heavy growth Aerobic Culture Organism: Staphylococcus aureus : O:BETAGB Isolated O:STAAUR Isolated Organism: 2.2 Antibiotic Interpretation ISIDRA Status Ciprofloxacin Ciprofloxacin R F Erythromycin Erythromycin R F Gentamicin Gentamicin S F Levofloxacin Levofloxacin R F Linezolid Linezolid S F Moxifloxacin Moxifloxacin R F Oxacillin Oxacillin S F Penicillin Penicillin R F Quinupristin/Dalfopris tin Quinupristin/Dalfopris tin S F Rifampin Rifampin S F Tetracycline Tetracycline R F Trimethoprim/Sulfameth oxazole Trimethoprim/Sulfameth oxazole R F Vancomycin Vancomycin S F Clindamycin Clindamycin R F Aerobic Culture Organism: Beta hemolytic Strep group B : Aerobic Culture Organism: Staphylococcus aureus : O:BETAGB Isolated O:STAAUR Isolated Organism: 2.2 Antibiotic Interpretation ISIDRA Status Ciprofloxacin Ciprofloxacin R F Erythromycin Erythromycin R F Gentamicin Gentamicin S F Levofloxacin Levofloxacin R F Linezolid Linezolid S F Moxifloxacin Moxifloxacin R F Oxacillin Oxacillin S F Penicillin Penicillin R F Quinupristin/Dalfopris tin Quinupristin/Dalfopris tin S F Rifampin Rifampin S F Tetracycline Tetracycline R F Trimethoprim/Sulfameth oxazole Trimethoprim/Sulfameth oxazole R F Vancomycin Vancomycin S F Clindamycin Clindamycin R F Aerobic Culture *ABNORMAL* Aerobic Culture Organism: Staphylococcus aureus : O:BETAGB Isolated O:STAAUR Isolated Organism: 2.2 Antibiotic Interpretation ISIDRA Status Ciprofloxacin Ciprofloxacin R F Erythromycin Erythromycin R F Gentamicin Gentamicin S F Levofloxacin Levofloxacin R F Linezolid Linezolid S F Moxifloxacin Moxifloxacin R F Oxacillin Oxacillin S F Penicillin Penicillin R F Quinupristin/Dalfopris tin Quinupristin/Dalfopris tin S F Rifampin Rifampin S F Tetracycline Tetracycline R F Trimethoprim/Sulfameth oxazole Trimethoprim/Sulfameth oxazole R F Vancomycin Vancomycin S F Clindamycin Clindamycin R F Aerobic Culture Heavy growth Aerobic Culture Organism: Staphylococcus aureus : O:BETAGB Isolated O:STAAUR Isolated Organism: 2.2 Antibiotic Interpretation ISIDRA Status Ciprofloxacin Ciprofloxacin R F Erythromycin Erythromycin R F Gentamicin Gentamicin S F Levofloxacin Levofloxacin R F Linezolid Linezolid S F Moxifloxacin Moxifloxacin R F Oxacillin Oxacillin S F Penicillin Penicillin R F Quinupristin/Dalfopris tin Quinupristin/Dalfopris tin S F Rifampin Rifampin S F Tetracycline Tetracycline R F Trimethoprim/Sulfameth oxazole Trimethoprim/Sulfameth oxazole R F Vancomycin Vancomycin S F Clindamycin Clindamycin R F Aerobic Culture Penicillin and ampicillin are drugs of choice for Aerobic Culture Organism: Staphylococcus aureus : O:BETAGB Isolated O:STAAUR Isolated Organism: 2.2 Antibiotic Interpretation ISIDRA Status Ciprofloxacin Ciprofloxacin R F Erythromycin Erythromycin R F Gentamicin Gentamicin S F Levofloxacin Levofloxacin R F Linezolid Linezolid S F Moxifloxacin Moxifloxacin R F Oxacillin Oxacillin S F Penicillin Penicillin R F Quinupristin/Dalfopris tin Quinupristin/Dalfopris tin S F Rifampin Rifampin S F Tetracycline Tetracycline R F Trimethoprim/Sulfameth oxazole Trimethoprim/Sulfameth oxazole R F Vancomycin Vancomycin S F Clindamycin Clindamycin R F Aerobic Culture treatment of beta-hemolytic streptococcal infections. Aerobic Culture Organism: Staphylococcus aureus : O:BETAGB Isolated O:STAR Isolated Organism: 2.2 Antibiotic Interpretation ISIDRA Status Ciprofloxacin Ciprofloxacin R F Erythromycin Erythromycin R F Gentamicin Gentamicin S F Levofloxacin Levofloxacin R F Linezolid Linezolid S F Moxifloxacin Moxifloxacin R F Oxacillin Oxacillin S F Penicillin Penicillin R F Quinupristin/Dalfopris tin Quinupristin/Dalfopris tin S F Rifampin Rifampin S F Tetracycline Tetracycline R F Trimethoprim/Sulfameth oxazole Trimethoprim/Sulfameth oxazole R F Vancomycin Vancomycin S F Clindamycin Clindamycin R F Aerobic Culture Susceptibility testi ng of penicillins and other beta- Aerobic Culture Organism: Staphylococcus aureus : O:BETAGB Isolated O:STAAUR Isolated Organism: 2.2 Antibiotic Interpretation ISIDRA Status Ciprofloxacin Ciprofloxacin R F Erythromycin Erythromycin R F Gentamicin Gentamicin S F Levofloxacin Levofloxacin R F Linezolid Linezolid S F Moxifloxacin Moxifloxacin R F Oxacillin Oxacillin S F Penicillin Penicillin R F Quinupristin/Dalfopris tin Quinupristin/Dalfopris tin S F Rifampin Rifampin S F Tetracycline Tetracycline R F Trimethoprim/Sulfameth oxazole Trimethoprim/Sulfameth oxazole R F Vancomycin Vancomycin S F Clindamycin Clindamycin R F Aerobic Culture lactam agents approv ed by the FDA for treatment of Aerobic Culture Organism: Staphylococcus aureus : O:BETAGB Isolated O:STAAUR Isolated Organism: 2.2 Antibiotic Interpretation ISIDRA Status Ciprofloxacin Ciprofloxacin R F Erythromycin Erythromycin R F Gentamicin Gentamicin S F Levofloxacin Levofloxacin R F Linezolid Linezolid S F Moxifloxacin Moxifloxacin R F Oxacillin Oxacillin S F Penicillin Penicillin R F Quinupristin/Dalfopris tin Quinupristin/Dalfopris tin S F Rifampin Rifampin S F Tetracycline Tetracycline R F Trimethoprim/Sulfameth oxazole Trimethoprim/Sulfameth oxazole R F Vancomycin Vancomycin S F Clindamycin Clindamycin R F Aerobic Culture beta-hemolytic streptococcal infections need not be Aerobic Culture Organism: Staphylococcus aureus : O:BETAGB Isolated O:STAAUR Isolated Organism: 2.2 Antibiotic Interpretation ISIDRA Status Ciprofloxacin Ciprofloxacin R F Erythromycin Erythromycin R F Gentamicin Gentamicin S F Levofloxacin Levofloxacin R F Linezolid Linezolid S F Moxifloxacin Moxifloxacin R F Oxacillin Oxacillin S F Penicillin Penicillin R F Quinupristin/Dalfopris tin Quinupristin/Dalfopris tin S F Rifampin Rifampin S F Tetracycline Tetracycline R F Trimethoprim/Sulfameth oxazole Trimethoprim/Sulfameth oxazole R F Vancomycin Vancomycin S F Clindamycin Clindamycin R F Aerobic Culture performed routinely because nonsusceptible isolates Aerobic Culture Organism: Staphylococcus aureus : O:BETAGB Isolated O:STAAUR Isolated Organism: 2.2 Antibiotic Interpretation ISIDRA Status Ciprofloxacin Ciprofloxacin R F Erythromycin Erythromycin R F Gentamicin Gentamicin S F Levofloxacin Levofloxacin R F Linezolid Linezolid S F Moxifloxacin Moxifloxacin R F Oxacillin Oxacillin S F Penicillin Penicillin R F Quinupristin/Dalfopris tin Quinupristin/Dalfopris tin S F Rifampin Rifampin S F Tetracycline Tetracycline R F Trimethoprim/Sulfameth oxazole Trimethoprim/Sulfameth oxazole R F Vancomycin Vancomycin S F Clindamycin Clindamycin R F Aerobic Culture are extremely rare i n any beta-hemolytic streptococcus Aerobic Culture Organism: Staphylococcus aureus : O:BETAGB Isolated O:STAAUR Isolated Organism: 2.2 Antibiotic Interpretation ISIDRA Status Ciprofloxacin Ciprofloxacin R F Erythromycin Erythromycin R F Gentamicin Gentamicin S F Levofloxacin Levofloxacin R F Linezolid Linezolid S F Moxifloxacin Moxifloxacin R F Oxacillin Oxacillin S F Penicillin Penicillin R F Quinupristin/Dalfopris tin Quinupristin/Dalfopris tin S F Rifampin Rifampin S F Tetracycline Tetracycline R F Trimethoprim/Sulfameth oxazole Trimethoprim/Sulfameth oxazole R F Vancomycin Vancomycin S F Clindamycin Clindamycin R F Aerobic Culture and have not been reported for Streptococcus pyogenes Aerobic Culture Organism: Staphylococcus aureus : O:BETAGB Isolated O:STAAUR Isolated Organism: 2.2 Antibiotic Interpretation ISIDRA Status Ciprofloxacin Ciprofloxacin R F Erythromycin Erythromycin R F Gentamicin Gentamicin S F Levofloxacin Levofloxacin R F Linezolid Linezolid S F Moxifloxacin Moxifloxacin R F Oxacillin Oxacillin S F Penicillin Penicillin R F Quinupristin/Dalfopris tin Quinupristin/Dalfopris tin S F Rifampin Rifampin S F Tetracycline Tetracycline R F Trimethoprim/Sulfameth oxazole Trimethoprim/Sulfameth oxazole R F Vancomycin Vancomycin S F Clindamycin Clindamycin R F Aerobic Culture (group A). (CLSI) Aerobic Culture Organism: Staphylococcus aureus : O:BETAGB Isolated O:STAAUR Isolated Organism: 2.2 Antibiotic Interpretation ISIDRA Status Ciprofloxacin Ciprofloxacin R F Erythromycin Erythromycin R F Gentamicin Gentamicin S F Levofloxacin Levofloxacin R F Linezolid Linezolid S F Moxifloxacin Moxifloxacin R F Oxacillin Oxacillin S F Penicillin Penicillin R F Quinupristin/Dalfopris tin Quinupristin/Dalfopris tin S F Rifampin Rifampin S F Tetracycline Tetracycline R F Trimethoprim/Sulfameth oxazole Trimethoprim/Sulfameth oxazole R F Vancomycin Vancomycin S F Clindamycin Clindamycin R F Aerobic Culture See Below For Report Aerobic Culture Organism: Staphylococcus aureus : O:BETAGB Isolated O:STAAUR Isolated Organism: 2.2 Antibiotic Interpretation ISIDRA Status Ciprofloxacin Ciprofloxacin R F Erythromycin Erythromycin R F Gentamicin Gentamicin S F Levofloxacin Levofloxacin R F Linezolid Linezolid S F Moxifloxacin Moxifloxacin R F Oxacillin Oxacillin S F Penicillin Penicillin R F Quinupristin/Dalfopris tin Quinupristin/Dalfopris tin S F Rifampin Rifampin S F Tetracycline Tetracycline R F Trimethoprim/Sulfameth oxazole Trimethoprim/Sulfameth oxazole R F Vancomycin Vancomycin S F Clindamycin Clindamycin R F Aerobic Culture See Below For Report Aerobic Culture Organism: Staphylococcus aureus : O:BETAGB Isolated O:STAAUR Isolated Organism: 2.2 Antibiotic Interpretation ISIDRA Status Ciprofloxacin Ciprofloxacin R F Erythromycin Erythromycin R F Gentamicin Gentamicin S F Levofloxacin Levofloxacin R F Linezolid Linezolid S F Moxifloxacin Moxifloxacin R F Oxacillin Oxacillin S F Penicillin Penicillin R F Quinupristin/Dalfopris tin Quinupristin/Dalfopris tin S F Rifampin Rifampin S F Tetracycline Tetracycline R F Trimethoprim/Sulfameth oxazole Trimethoprim/Sulfameth oxazole R F Vancomycin Vancomycin S F Clindamycin Clindamycin R F Aerobic Culture Performed at: [facility] Aerobic Culture Organism: Staphylococcus aureus : O:BETAGB Isolated O:STAAUR Isolated Organism: 2.2 Antibiotic Interpretation ISIDRA Status Ciprofloxacin Ciprofloxacin R F Erythromycin Erythromycin R F Gentamicin Gentamicin S F Levofloxacin Levofloxacin R F Linezolid Linezolid S F Moxifloxacin Moxifloxacin R F Oxacillin Oxacillin S F Penicillin Penicillin R F Quinupristin/Dalfopris tin Quinupristin/Dalfopris tin S F Rifampin Rifampin S F Tetracycline Tetracycline R F Trimethoprim/Sulfameth oxazole Trimethoprim/Sulfameth oxazole R F Vancomycin Vancomycin S F Clindamycin Clindamycin R F Aerobic Culture [address] [place], [place] [id number] Aerobic Culture Organism: Staphylococcus aureus : O:BETAGB Isolated O:STAAUR Isolated Organism: 2.2 Antibiotic Interpretation ISIDRA Status Ciprofloxacin Ciprofloxacin R F Erythromycin Erythromycin R F Gentamicin Gentamicin S F Levofloxacin Levofloxacin R F Linezolid Linezolid S F Moxifloxacin Moxifloxacin R F Oxacillin Oxacillin S F Penicillin Penicillin R F Quinupristin/Dalfopris tin Quinupristin/Dalfopris tin S F Rifampin Rifampin S F Tetracycline Tetracycline R F Trimethoprim/Sulfameth oxazole Trimethoprim/Sulfameth oxazole R F Vancomycin Vancomycin S F Clindamycin Clindamycin R F Aerobic Culture [employer] Teacher: Nataly Billy PhD, Phone: [phone] Aerobic Culture Organism: Staphylococcus aureus : O:BETAGB Isolated O:STAAUR Isolated Organism: 2.2 Antibiotic Interpretation ISIDRA Status Ciprofloxacin Ciprofloxacin R F Erythromycin Erythromycin R F Gentamicin Gentamicin S F Levofloxacin Levofloxacin R F Linezolid Linezolid S F Moxifloxacin Moxifloxacin R F Oxacillin Oxacillin S F Penicillin Penicillin R F Quinupristin/Dalfopris tin Quinupristin/Dalfopris tin S F Rifampin Rifampin S F Tetracycline Tetracycline R F Trimethoprim/Sulfameth oxazole Trimethoprim/Sulfameth oxazole R F Vancomycin Vancomycin S F Clindamycin Clindamycin R F Aerobic Culture See Below For Report Aerobic Culture Organism: Staphylococcus aureus : O:BETAGB Isolated O:STAAUR Isolated Organism: 2.2 Antibiotic Interpretation ISIDRA Status Ciprofloxacin Ciprofloxacin R F Erythromycin Erythromycin R F Gentamicin Gentamicin S F Levofloxacin Levofloxacin R F Linezolid Linezolid S F Moxifloxacin Moxifloxacin R F Oxacillin Oxacillin S F Penicillin Penicillin R F Quinupristin/Dalfopris tin Quinupristin/Dalfopris tin S F Rifampin Rifampin S F Tetracycline Tetracycline R F Trimethoprim/Sulfameth oxazole Trimethoprim/Sulfameth oxazole R F Vancomycin Vancomycin S F Clindamycin Clindamycin R F Aerobic Culture See Below For Report Aerobic Culture Organism: Staphylococcus aureus : O:BETAGB Isolated O:STAR Isolated Organism: 2.2 Antibiotic Interpretation ISIDRA Status Ciprofloxacin Ciprofloxacin R F Erythromycin Erythromycin R F Gentamicin Gentamicin S F Levofloxacin Levofloxacin R F Linezolid Linezolid S F Moxifloxacin Moxifloxacin R F Oxacillin Oxacillin S F Penicillin Penicillin R F Quinupristin/Dalfopris tin Quinupristin/Dalfopris tin S F Rifampin Rifampin S F Tetracycline Tetracycline R F Trimethoprim/Sulfameth oxazole Trimethoprim/Sulfameth oxazole R F Vancomycin Vancomycin S F Clindamycin Clindamycin R F Aerobic Culture See Below For Report Aerobic Culture Organism: Staphylococcus aureus : O:BETAGB Isolated O:STAAUR Isolated Organism: 2.2 Antibiotic Interpretation ISIDRA Status Ciprofloxacin Ciprofloxacin R F Erythromycin Erythromycin R F Gentamicin Gentamicin S F Levofloxacin Levofloxacin R F Linezolid Linezolid S F Moxifloxacin Moxifloxacin R F Oxacillin Oxacillin S F Penicillin Penicillin R F Quinupristin/Dalfopris tin Quinupristin/Dalfopris tin S F Rifampin Rifampin S F Tetracycline Tetracycline R F Trimethoprim/Sulfameth oxazole Trimethoprim/Sulfameth oxazole R F Vancomycin Vancomycin S F Clindamycin Clindamycin R F Aerobic Culture See Below For Report Aerobic Culture Organism: Staphylococcus aureus : O:BETAGB Isolated O:STAAUR Isolated Organism: 2.2 Antibiotic Interpretation ISIDRA Status Ciprofloxacin Ciprofloxacin R F Erythromycin Erythromycin R F Gentamicin Gentamicin S F Levofloxacin Levofloxacin R F Linezolid Linezolid S F Moxifloxacin Moxifloxacin R F Oxacillin Oxacillin S F Penicillin Penicillin R F Quinupristin/Dalfopris tin Quinupristin/Dalfopris tin S F Rifampin Rifampin S F Tetracycline Tetracycline R F Trimethoprim/Sulfameth oxazole Trimethoprim/Sulfameth oxazole R F Vancomycin Vancomycin S F Clindamycin Clindamycin R F Aerobic Culture See Below For Report Aerobic Culture Organism: Staphylococcus aureus : O:BETAGB Isolated O:STAAUR Isolated Organism: 2.2 Antibiotic Interpretation ISIDRA Status Ciprofloxacin Ciprofloxacin R F Erythromycin Erythromycin R F Gentamicin Gentamicin S F Levofloxacin Levofloxacin R F Linezolid Linezolid S F Moxifloxacin Moxifloxacin R F Oxacillin Oxacillin S F Penicillin Penicillin R F Quinupristin/Dalfopris tin Quinupristin/Dalfopris tin S F Rifampin Rifampin S F Tetracycline Tetracycline R F Trimethoprim/Sulfameth oxazole Trimethoprim/Sulfameth oxazole R F Vancomycin Vancomycin S F Clindamycin Clindamycin R F Aerobic Culture See Below For Report Aerobic Culture Organism: Staphylococcus aureus : O:BETAGB Isolated O:STAAUR Isolated Organism: 2.2 Antibiotic Interpretation ISIDRA Status Ciprofloxacin Ciprofloxacin R F Erythromycin Erythromycin R F Gentamicin Gentamicin S F Levofloxacin Levofloxacin R F Linezolid Linezolid S F Moxifloxacin Moxifloxacin R F Oxacillin Oxacillin S F Penicillin Penicillin R F Quinupristin/Dalfopris tin Quinupristin/Dalfopris tin S F Rifampin Rifampin S F Tetracycline Tetracycline R F Trimethoprim/Sulfameth oxazole Trimethoprim/Sulfameth oxazole R F Vancomycin Vancomycin S F Clindamycin Clindamycin R F Aerobic Culture See Below For Report Aerobic Culture Organism: Staphylococcus aureus : O:BETAGB Isolated O:STAAUR Isolated Organism: 2.2 Antibiotic Interpretation ISIDRA Status Ciprofloxacin Ciprofloxacin R F Erythromycin Erythromycin R F Gentamicin Gentamicin S F Levofloxacin Levofloxacin R F Linezolid Linezolid S F Moxifloxacin Moxifloxacin R F Oxacillin Oxacillin S F Penicillin Penicillin R F Quinupristin/Dalfopris tin Quinupristin/Dalfopris tin S F Rifampin Rifampin S F Tetracycline Tetracycline R F Trimethoprim/Sulfameth oxazole Trimethoprim/Sulfameth oxazole R F Vancomycin Vancomycin S F Clindamycin Clindamycin R F Aerobic Culture See Below For Report Aerobic Culture Organism: Staphylococcus aureus : O:BETAGB Isolated O:STAAUR Isolated Organism: 2.2 Antibiotic Interpretation ISIDRA Status Ciprofloxacin Ciprofloxacin R F Erythromycin Erythromycin R F Gentamicin Gentamicin S F Levofloxacin Levofloxacin R F Linezolid Linezolid S F Moxifloxacin Moxifloxacin R F Oxacillin Oxacillin S F Penicillin Penicillin R F Quinupristin/Dalfopris tin Quinupristin/Dalfopris tin S F Rifampin Rifampin S F Tetracycline Tetracycline R F Trimethoprim/Sulfameth oxazole Trimethoprim/Sulfameth oxazole R F Vancomycin Vancomycin S F Clindamycin Clindamycin R F Aerobic Culture See Below For Report Aerobic Culture Organism: Staphylococcus aureus : O:BETAGB Isolated O:STAR Isolated Organism: 2.2 Antibiotic Interpretation ISIDRA Status Ciprofloxacin Ciprofloxacin R F Erythromycin Erythromycin R F Gentamicin Gentamicin S F Levofloxacin Levofloxacin R F Linezolid Linezolid S F Moxifloxacin Moxifloxacin R F Oxacillin Oxacillin S F Penicillin Penicillin R F Quinupristin/Dalfopris tin Quinupristin/Dalfopris tin S F Rifampin Rifampin S F Tetracycline Tetracycline R F Trimethoprim/Sulfameth oxazole Trimethoprim/Sulfameth oxazole R F Vancomycin Vancomycin S F Clindamycin Clindamycin R F Aerobic Culture See Below For Report Aerobic Culture Organism: Staphylococcus aureus : O:BETAGB Isolated O:STAAUR Isolated Organism: 2.2 Antibiotic Interpretation ISIDRA Status Ciprofloxacin Ciprofloxacin R F Erythromycin Erythromycin R F Gentamicin Gentamicin S F Levofloxacin Levofloxacin R F Linezolid Linezolid S F Moxifloxacin Moxifloxacin R F Oxacillin Oxacillin S F Penicillin Penicillin R F Quinupristin/Dalfopris tin Quinupristin/Dalfopris tin S F Rifampin Rifampin S F Tetracycline Tetracycline R F Trimethoprim/Sulfameth oxazole Trimethoprim/Sulfameth oxazole R F Vancomycin Vancomycin S F Clindamycin Clindamycin R F Aerobic Culture See Below For Report Aerobic Culture Organism: Staphylococcus aureus : O:BETAGB Isolated O:STAAUR Isolated Organism: 2.2 Antibiotic Interpretation ISIDRA Status Ciprofloxacin Ciprofloxacin R F Erythromycin Erythromycin R F Gentamicin Gentamicin S F Levofloxacin Levofloxacin R F Linezolid Linezolid S F Moxifloxacin Moxifloxacin R F Oxacillin Oxacillin S F Penicillin Penicillin R F Quinupristin/Dalfopris tin Quinupristin/Dalfopris tin S F Rifampin Rifampin S F Tetracycline Tetracycline R F Trimethoprim/Sulfameth oxazole Trimethoprim/Sulfameth oxazole R F Vancomycin Vancomycin S F Clindamycin Clindamycin R F Aerobic Culture See Below For Report Aerobic Culture Organism: Staphylococcus aureus : O:BETAGB Isolated O:STAAUR Isolated Organism: 2.2 Antibiotic Interpretation ISIDRA Status Ciprofloxacin Ciprofloxacin R F Erythromycin Erythromycin R F Gentamicin Gentamicin S F Levofloxacin Levofloxacin R F Linezolid Linezolid S F Moxifloxacin Moxifloxacin R F Oxacillin Oxacillin S F Penicillin Penicillin R F Quinupristin/Dalfopris tin Quinupristin/Dalfopris tin S F Rifampin Rifampin S F Tetracycline Tetracycline R F Trimethoprim/Sulfameth oxazole Trimethoprim/Sulfameth oxazole R F Vancomycin Vancomycin S F Clindamycin Clindamycin R F Aerobic Culture See Below For Report Aerobic Culture Organism: Staphylococcus aureus : O:BETAGB Isolated O:STAAUR Isolated Organism: 2.2 Antibiotic Interpretation ISIDRA Status Ciprofloxacin Ciprofloxacin R F Erythromycin Erythromycin R F Gentamicin Gentamicin S F Levofloxacin Levofloxacin R F Linezolid Linezolid S F Moxifloxacin Moxifloxacin R F Oxacillin Oxacillin S F Penicillin Penicillin R F Quinupristin/Dalfopris tin Quinupristin/Dalfopris tin S F Rifampin Rifampin S F Tetracycline Tetracycline R F Trimethoprim/Sulfameth oxazole Trimethoprim/Sulfameth oxazole R F Vancomycin Vancomycin S F Clindamycin Clindamycin R F Aerobic Culture See Below For Report Aerobic Culture Organism: Staphylococcus aureus : O:BETAGB Isolated O:STAAUR Isolated Organism: 2.2 Antibiotic Interpretation ISIDRA Status Ciprofloxacin Ciprofloxacin R F Erythromycin Erythromycin R F Gentamicin Gentamicin S F Levofloxacin Levofloxacin R F Linezolid Linezolid S F Moxifloxacin Moxifloxacin R F Oxacillin Oxacillin S F Penicillin Penicillin R F Quinupristin/Dalfopris tin Quinupristin/Dalfopris tin S F Rifampin Rifampin S F Tetracycline Tetracycline R F Trimethoprim/Sulfameth oxazole Trimethoprim/Sulfameth oxazole R F Vancomycin Vancomycin S F Clindamycin Clindamycin R F Aerobic Culture See Below For Report Aerobic Culture Organism: Staphylococcus aureus : O:BETAGB Isolated O:STAAUR Isolated Organism: 2.2 Antibiotic Interpretation ISIDRA Status Ciprofloxacin Ciprofloxacin R F Erythromycin Erythromycin R F Gentamicin Gentamicin S F Levofloxacin Levofloxacin R F Linezolid Linezolid S F Moxifloxacin Moxifloxacin R F Oxacillin Oxacillin S F Penicillin Penicillin R F Quinupristin/Dalfopris tin Quinupristin/Dalfopris tin S F Rifampin Rifampin S F Tetracycline Tetracycline R F Trimethoprim/Sulfameth oxazole Trimethoprim/Sulfameth oxazole R F Vancomycin Vancomycin S F Clindamycin Clindamycin R F Performing Lab: see note LC - [facility] LB SEE REPORT - Outreach Nurse Id information not found for OBX-specific construction producer legend Anaerobic Culture Reviewed date:05/23/2024 08:59:13 AM Interpretation: Performing Lab: Notes/Report: [facility] , Anaerobic Culture See Below For Report Anaerobic Culture Anaerobic Culture No anaerobic growth in 72 hours. Anaerobic Culture Performing Lab: see note LC - [facility] LB Aerobic Culture Reviewed date:05/18/2024 12:55:24 PM Interpretation: Performing Lab: Notes/Report: [facility] , Aerobic Culture See Below For Report Aerobic Culture Organism: Staphylococcus aureus : O:BETAGB Isolated O:STAAUR Isolated Organism: 1.2 Antibiotic Interpretation ISIDRA Status Aerobic Culture *ABNORMAL* Aerobic Culture Organism: Staphylococcus aureus : O:BETAGB Isolated O:STAAUR Isolated Organism: 1.2 Antibiotic Interpretation ISIDRA Status Aerobic Culture Heavy growth Aerobic Culture Organism: Staphylococcus aureus : O:BETAGB Isolated O:STAAUR Isolated Organism: 1.2 Antibiotic Interpretation ISIDRA Status Aerobic Culture Organism: Beta hemolytic Strep group B : Aerobic Culture Organism: Staphylococcus aureus : O:BETAGB Isolated O:STAAUR Isolated Organism: 1.2 Antibiotic Interpretation ISIDRA Status Aerobic Culture *ABNORMAL* Aerobic Culture Organism: Staphylococcus aureus : O:BETAGB Isolated O:STAAUR Isolated Organism: 1.2 Antibiotic Interpretation ISIDRA Status Aerobic Culture Heavy growth Aerobic Culture Organism: Staphylococcus aureus : O:BETAGB Isolated O:STAAUR Isolated Organism: 1.2 Antibiotic Interpretation ISIDRA Status Aerobic Culture Penicillin and ampicillin are drugs of choice for Aerobic Culture Organism: Staphylococcus aureus : O:BETAGB Isolated O:STAAUR Isolated Organism: 1.2 Antibiotic Interpretation ISIDRA Status Aerobic Culture treatment of beta-hemolytic streptococcal infections. Aerobic Culture Organism: Staphylococcus aureus : O:BETAGB Isolated O:STAAUR Isolated Organism: 1.2 Antibiotic Interpretation ISIDRA Status Aerobic Culture Susceptibility testi ng of penicillins and other beta- Aerobic Culture Organism: Staphylococcus aureus : O:BETAGB Isolated O:STAAUR Isolated Organism: 1.2 Antibiotic Interpretation ISIDRA Status Aerobic Culture lactam agents approv ed by the FDA for treatment of Aerobic Culture Organism: Staphylococcus aureus : O:BETAGB Isolated O:STAAUR Isolated Organism: 1.2 Antibiotic Interpretation ISIDRA Status Aerobic Culture beta-hemolytic streptococcal infections need not be Aerobic Culture Organism: Staphylococcus aureus : O:BETAGB Isolated O:STAAUR Isolated Organism: 1.2 Antibiotic Interpretation ISIDRA Status Aerobic Culture performed routinely because nonsusceptible isolates Aerobic Culture Organism: Staphylococcus aureus : O:BETAGB Isolated O:STAAUR Isolated Organism: 1.2 Antibiotic Interpretation ISIDRA Status Aerobic Culture are extremely rare i n any beta-hemolytic streptococcus Aerobic Culture Organism: Staphylococcus aureus : O:BETAGB Isolated O:STAAUR Isolated Organism: 1.2 Antibiotic Interpretation ISIDRA Status Aerobic Culture and have not been reported for Streptococcus pyogenes Aerobic Culture Organism: Staphylococcus aureus : O:BETAGB Isolated O:STAAUR Isolated Organism: 1.2 Antibiotic Interpretation ISIDRA Status Aerobic Culture (group A). (CLSI) Aerobic Culture Organism: Staphylococcus aureus : O:BETAGB Isolated O:STAAUR Isolated Organism: 1.2 Antibiotic Interpretation ISIDRA Status Aerobic Culture Beta hemolytic Strep group B Aerobic Culture Organism: Staphylococcus aureus : O:BETAGB Isolated O:STAAUR Isolated Organism: 1.2 Antibiotic Interpretation ISIDRA Status Aerobic Culture Staphylococcus aureus Aerobic Culture Organism: Staphylococcus aureus : O:BETAGB Isolated O:STAAUR Isolated Organism: 1.2 Antibiotic Interpretation ISIDRA Status Aerobic Culture Organism: Staphylococcus aureus : Aerobic Culture Organism: Staphylococcus aureus : O:BETAGB Isolated O:STAAUR Isolated Organism: 1.2 Antibiotic Interpretation ISIDRA Status Aerobic Culture *ABNORMAL* Aerobic Culture Organism: Staphylococcus aureus : O:BETAGB Isolated O:STAAUR Isolated Organism: 1.2 Antibiotic Interpretation ISIDRA Status Aerobic Culture Based on susceptibility to oxacillin this isolate would be Aerobic Culture Organism: Staphylococcus aureus : O:BETAGB Isolated O:STAAUR Isolated Organism: 1.2 Antibiotic Interpretation ISIDRA Status Aerobic Culture susceptible to: Aerobic Culture Organism: Staphylococcus aureus : O:BETAGB Isolated O:STAAUR Isolated Organism: 1.2 Antibiotic Interpretation ISIDRA Status Aerobic Culture *Penicillinase-stabl e penicillins, such as: Aerobic Culture Organism: Staphylococcus aureus : O:BETAGB Isolated O:STAAUR Isolated Organism: 1.2 Antibiotic Interpretation ISIDRA Status Aerobic Culture Cloxacillin, Dicloxacillin, Nafcillin Aerobic Culture Organism: Staphylococcus aureus : O:BETAGB Isolated O:STAAUR Isolated Organism: 1.2 Antibiotic Interpretation ISIDRA Status Aerobic Culture *Beta-lactam combination agents, such as: Aerobic Culture Organism: Staphylococcus aureus : O:BETAGB Isolated O:STAAUR Isolated Organism: 1.2 Antibiotic Interpretation ISIDRA Status Aerobic Culture Amoxicillin-clavulan ic acid, Ampicillin-sulbactam, Aerobic Culture Organism: Staphylococcus aureus : O:BETAGB Isolated O:STAAUR Isolated Organism: 1.2 Antibiotic Interpretation ISIDRA Status Aerobic Culture Piperacillin-tazobac ta m Aerobic Culture Organism: Staphylococcus aureus : O:BETAGB Isolated O:STAAUR Isolated Organism: 1.2 Antibiotic Interpretation ISIDRA Status Aerobic Culture *Oral cephems, such as: Aerobic Culture Organism: Staphylococcus aureus : O:BETAGB Isolated O:STAAUR Isolated Organism: 1.2 Antibiotic Interpretation ISIDRA Status Aerobic Culture Cefaclor, Cefdinir, Cefpodoxime, Cefprozil, Cefuroxime, Aerobic Culture Organism: Staphylococcus aureus : O:BETAGB Isolated O:STAAUR Isolated Organism: 1.2 Antibiotic Interpretation ISIDRA Status Aerobic Culture Cephalexin, Loracarbef Aerobic Culture Organism: Staphylococcus aureus : O:BETAGB Isolated O:STAAUR Isolated Organism: 1.2 Antibiotic Interpretation ISIDRA Status Aerobic Culture *Parenteral cephems, such as: Aerobic Culture Organism: Staphylococcus aureus : O:BETAGB Isolated O:STAAUR Isolated Organism: 1.2 Antibiotic Interpretation ISIDRA Status Aerobic Culture Cefazolin, Cefepime, Cefotaxime, Cefotetan, Ceftaroline, Aerobic Culture Organism: Staphylococcus aureus : O:BETAGB Isolated O:STAAUR Isolated Organism: 1.2 Antibiotic Interpretation ISIDRA Status Aerobic Culture Ceftizoxime, Ceftriaxone, Cefuroxime Aerobic Culture Organism: Staphylococcus aureus : O:BETAGB Isolated O:STAAUR Isolated Organism: 1.2 Antibiotic Interpretation ISIDRA Status Aerobic Culture *Carbapenems, such as: Aerobic Culture Organism: Staphylococcus aureus : O:BETAGB Isolated O:STAAUR Isolated Organism: 1.2 Antibiotic Interpretation ISIDRA Status Aerobic Culture Doripenem, Ertapenem , Imipenem, Meropenem Aerobic Culture Organism: Staphylococcus aureus : O:BETAGB Isolated O:STAAUR Isolated Organism: 1.2 Antibiotic Interpretation ISIDRA Status Aerobic Culture Heavy growth Aerobic Culture Organism: Staphylococcus aureus : O:BETAGB Isolated O:STAAUR Isolated Organism: 1.2 Antibiotic Interpretation ISIDRA Status Aerobic Culture Organism: Beta hemolytic Strep group B : Aerobic Culture Organism: Staphylococcus aureus : O:BETAGB Isolated O:STAAUR Isolated Organism: 1.2 Antibiotic Interpretation ISIDRA Status Aerobic Culture *ABNORMAL* Aerobic Culture Organism: Staphylococcus aureus : O:BETAGB Isolated O:STAAUR Isolated Organism: 1.2 Antibiotic Interpretation ISIDRA Status Aerobic Culture Heavy growth Aerobic Culture Organism: Staphylococcus aureus : O:BETAGB Isolated O:STAAUR Isolated Organism: 1.2 Antibiotic Interpretation ISIDRA Status Aerobic Culture Penicillin and ampicillin are drugs of choice for Aerobic Culture Organism: Staphylococcus aureus : O:BETAGB Isolated O:STAAUR Isolated Organism: 1.2 Antibiotic Interpretation ISIDRA Status Aerobic Culture treatment of beta-hemolytic streptococcal infections. Aerobic Culture Organism: Staphylococcus aureus : O:BETAGB Isolated O:STAAUR Isolated Organism: 1.2 Antibiotic Interpretation ISIDRA Status Aerobic Culture Susceptibility testi ng of penicillins and other beta- Aerobic Culture Organism: Staphylococcus aureus : O:BETAGB Isolated O:STAAUR Isolated Organism: 1.2 Antibiotic Interpretation ISIDRA Status Aerobic Culture lactam agents approv ed by the FDA for treatment of Aerobic Culture Organism: Staphylococcus aureus : O:BETAGB Isolated O:STAAUR Isolated Organism: 1.2 Antibiotic Interpretation ISIDRA Status Aerobic Culture beta-hemolytic streptococcal infections need not be Aerobic Culture Organism: Staphylococcus aureus : O:BETAGB Isolated O:STAAUR Isolated Organism: 1.2 Antibiotic Interpretation ISIDRA Status Aerobic Culture performed routinely because nonsusceptible isolates Aerobic Culture Organism: Staphylococcus aureus : O:BETAGB Isolated O:STAAUR Isolated Organism: 1.2 Antibiotic Interpretation ISIDRA Status Aerobic Culture are extremely rare i n any beta-hemolytic streptococcus Aerobic Culture Organism: Staphylococcus aureus : O:BETAGB Isolated O:STAAUR Isolated Organism: 1.2 Antibiotic Interpretation ISIDRA Status Aerobic Culture and have not been reported for Streptococcus pyogenes Aerobic Culture Organism: Staphylococcus aureus : O:BETAGB Isolated O:STAAUR Isolated Organism: 1.2 Antibiotic Interpretation ISIDRA Status Aerobic Culture (group A). (CLSI) Aerobic Culture Organism: Staphylococcus aureus : O:BETAGB Isolated O:STAAUR Isolated Organism: 1.2 Antibiotic Interpretation ISIDRA Status Aerobic Culture See Below For Report Aerobic Culture Organism: Staphylococcus aureus : O:BETAGB Isolated O:STAAUR Isolated Organism: 1.2 Antibiotic Interpretation ISIDRA Status Aerobic Culture See Below For Report Aerobic Culture Organism: Staphylococcus aureus : O:BETAGB Isolated O:STAAUR Isolated Organism: 1.2 Antibiotic Interpretation ISIDRA Status Aerobic Culture Performed at: [facility] Aerobic Culture Organism: Staphylococcus aureus : O:BETAGB Isolated O:STAAUR Isolated Organism: 1.2 Antibiotic Interpretation ISIDRA Status Aerobic Culture [address] [place], [place] [id number] Aerobic Culture Organism: Staphylococcus aureus : O:BETAGB Isolated O:STAAUR Isolated Organism: 1.2 Antibiotic Interpretation ISIDRA Status Aerobic Culture [employer] Teacher: Nataly Billy PhD, Phone: [phone] Aerobic Culture Organism: Staphylococcus aureus : O:BETAGB Isolated O:STAAUR Isolated Organism: 1.2 Antibiotic Interpretation ISIDRA Status Aerobic Culture See Below For Report Aerobic Culture Organism: Staphylococcus aureus : O:BETAGB Isolated O:STAAUR Isolated Organism: 1.2 Antibiotic Interpretation ISIDRA Status Aerobic Culture Ciprofloxacin R F Aerobic Culture Organism: Staphylococcus aureus : O:BETAGB Isolated O:STAAUR Isolated Organism: 1.2 Antibiotic Interpretation ISIDRA Status Aerobic Culture Erythromycin R F Aerobic Culture Organism: Staphylococcus aureus : O:BETAGB Isolated O:STAAUR Isolated Organism: 1.2 Antibiotic Interpretation ISIDRA Status Aerobic Culture Gentamicin S F Aerobic Culture Organism: Staphylococcus aureus : O:BETAGB Isolated O:STAAUR Isolated Organism: 1.2 Antibiotic Interpretation ISIDRA Status Aerobic Culture Levofloxacin R F Aerobic Culture Organism: Staphylococcus aureus : O:BETAGB Isolated O:STAAUR Isolated Organism: 1.2 Antibiotic Interpretation ISIDRA Status Aerobic Culture Linezolid S F Aerobic Culture Organism: Staphylococcus aureus : O:BETAGB Isolated O:STAAUR Isolated Organism: 1.2 Antibiotic Interpretation ISIDRA Status Aerobic Culture Moxifloxacin R F Aerobic Culture Organism: Staphylococcus aureus : O:BETAGB Isolated O:STAAUR Isolated Organism: 1.2 Antibiotic Interpretation ISIDRA Status Aerobic Culture Oxacillin S F Aerobic Culture Organism: Staphylococcus aureus : O:BETAGB Isolated O:STAAUR Isolated Organism: 1.2 Antibiotic Interpretation ISIDRA Status Aerobic Culture Penicillin R F Aerobic Culture Organism: Staphylococcus aureus : O:BETAGB Isolated O:STAAUR Isolated Organism: 1.2 Antibiotic Interpretation ISIDRA Status Aerobic Culture Quinupristin/Dalfopr is tin S F Aerobic Culture Organism: Staphylococcus aureus : O:BETAGB Isolated O:STAAUR Isolated Organism: 1.2 Antibiotic Interpretation ISIDRA Status Aerobic Culture Rifampin S F Aerobic Culture Organism: Staphylococcus aureus : O:BETAGB Isolated O:STAAUR Isolated Organism: 1.2 Antibiotic Interpretation ISIDRA Status Aerobic Culture Tetracycline R F Aerobic Culture Organism: Staphylococcus aureus : O:BETAGB Isolated O:STAAUR Isolated Organism: 1.2 Antibiotic Interpretation ISIDRA Status Aerobic Culture Trimethoprim/Sulfame th oxazole R F Aerobic Culture Organism: Staphylococcus aureus : O:BETAGB Isolated O:STAAUR Isolated Organism: 1.2 Antibiotic Interpretation ISIDRA Status Aerobic Culture Vancomycin S F Aerobic Culture Organism: Staphylococcus aureus : O:BETAGB Isolated O:STAAUR Isolated Organism: 1.2 Antibiotic Interpretation ISIDRA Status Aerobic Culture Clindamycin R F Aerobic Culture Organism: Staphylococcus aureus : O:BETAGB Isolated O:STAAUR Isolated Organism: 1.2 Antibiotic Interpretation ISIDRA Status Performing Lab: see note LC - [facility] LB SEE REPORT - Outreach Nurse Id information not found for OBX-specific construction producer legend XR chest 2V Reviewed date:08/24/2024 02:01:29 PM Interpretation: Performing Lab: Notes/Report: Source Facility: [place] [address] XRay Report Signed Patient: IZABELLA GOMEZ MR#: [id number] : 1960 Acct:[id number] Age/Sex: 63 / F ADM Date: 08/24/24 Loc: LAB Attending Dr: Chase Moran M.D. Ordering Physician: Chase Moran M.D. Date of Service: 08/24/24 Procedure(s): XR chest 2V Accession Number(s): [id number] cc: Chase Moran M.D. [address] [address] Patient Name: IZABELLA GOMEZ MRN: [id number] date: 1960 Sex: F Assigned Patient Location: LAB Current Patient Location: LAB Accession/Order Number: [id number] Exam Date: 08/24/2024 11:25 Report Date: 08/24/2024 11:30 At the request of: CHASE MORAN MD Procedure: XR chest 2V PA AND LATERAL CHEST: CLINICAL HISTORY: Cough and chest congestion. Right Lower Lobe Pneumonia COMPARISON: 07/03/2024 Mild patchy infiltrative change is seen at the right lower lobe. There is no additional consolidation, pleural effusion or pneumothorax. The cardiac, hilar and mediastinal silhouettes are stable. There is no vascular congestion. The bony structures are osteopenic. Similar thoracic wedge deformities are seen. There is slight dextroscoliotic curvature . Degenerative changes are present at the shoulders and postoperative change is also noted on the left. XR/XR chest 2V IMPRESSION: RIGHT LOWER LOBE INFILTRATE SUGGESTING PNEUMONIA. Impression dictated by: Marisa Merlos M.D.08/24/2024 11:30 AM Dictation Location: [place] [address] Electronically authenticated by: [id number] Y Date: 08/24/2024 11:30 Dictated By: Marisa Merlos M.D. Signed By: 08/24/24 1133 DD/ 1130 TD/TT: [employer] Equipment Operator: INSULIN Reviewed date:08/25/2024 04:07:22 PM Interpretation: Performing Lab: Notes/Report: [facility] , Insulin 93.5 2.6-24.9 uIU/mL Performed at: CB - [facility] [address] [id number] [employer] Teacher: Kenji Billy PhD, Phone: [phone] Performing Lab: see note LC - [facility] LB Reason For Referral Reason Laceration over knee left - not healing Diagnosis 1 Laceration of knee w ithout complication, unspecified laterality, subsequent encounter (S81.634Y) Referral Organization [facility] Referring Provider First Name Ricardo Referring Provider Last Name Traci Referring Provider Speciality Family [facility] icine Referred Provider Sammy Apple Referred Provider Specialty Orthopedic S urgery Referral Priority Routine Medications Medication SIG (Take, Route, Frequency, Duration) Notes Start Date End Date Status Doxycycline Monohydrate 100 MG 1 tablet Orally bid; Duration: 10 days 03/18/2025 Active Rinvoq 15 MG 1 tablet Orally Once a day Active Dupixent 300 MG/2ML Subcutaneous; Duration: 14 Days Active Singulair 10 MG 1 tablet Orally Once a day; Duration: 90 days Patient wants to stop Accolate and go back to Singulair...... ............... ......... Active Ozempic (1 MG/DOSE) 4 MG/3ML as directed Subcutaneous Active Spiriva Respimat 1.25 MCG/ACT 2 puffs Inhalation Once a day; Duration: 90 days Active Cyclobenzaprine HCl 10 MG 1 tablet Orally tid; Duration: 30 days 06/17/2024 Active Ipratropium-Albuterol 0.5-2.5 (3) MG/3ML 3mL Inhalation QiD; Duration: 90 days Active levoFLOXacin 750 MG 1 tablet Orally Once a day; Duration: 10 day(s) 03/18/2025 Active Fexofenadine HCl 60 MG 1 tablet Orally Twice a day Active Fluticasone Propionate 50 MCG/ACT Nasal; Duration: 30 Days Active traMADol HCl 50 MG 1 tablet as needed Orally tid; Duration: 7 days 03/17/2025 Active Albuterol Sulfate HFA 108 (90 Base) MCG/ACT 2 puffs as needed for SOB Inhalation Q4H; Duration: 90 days Active Omeprazole 40 MG 1 capsule 30 minutes before morning meal Orally Once a day Active CeleBREX 200 MG 1 capsule with food Orally Once a day Active Ondansetron 4 MG 1 tablet on the tongue and allow to dissolve Orally qid 03/17/2025 Active Levothyroxine Sodium 137 MCG 1 tablet in the morning on an empty stomach Orally Once a day; Duration: 30 days Active Advair Diskus 500-50 MCG/ACT 1 puff Inhalation BID; Duration: 90 days Rinse after use Active Liothyronine Sodium 5 MCG TAKE 1 TABLET BY MOUTH EVERY DAY ON EMPTY STOMACH FOR 30 DAYS; Duration: 30 Active Immunizations Vaccine Route Administration Date Status Comme nts Arexvy Unknown 06/07/2023 Administered Flu, Flucelvax (38503) 6 mos and older, single-dose syringe (9693-9601) Unknown 05/15/2024 Administered Flu, Flucelvax (74496) 2 yrs +, single-dose syringe (6546-1803) Unknown 05/14/2023 Administered Flu, Fluzone (01787) 6 mos+, single-dose syringe/vial (2254-4706) Unknown 07/24/2022 Administered Pneumococcal (Pneumovax 23) Unknown 03/13/2018 Administ ered Pneumococcal (Pneumovax 23) Unknown 05/26/2018 Administ ered Pneumococcal (Pneumovax 23) Unknown 03/26/2024 Administ ered Pneumococcal (Prevnar 20) Unknown 06/07/2023 Administer ed SARS-COV-2 (COVID 19 Pfizer 30mcg/0.3mL), mac sucrose Unknown 11/17/2021 Administered SARS-COV-2 (COVID 19) bivale nt 30 mcg/0.3 ml dose Unknown 07/24/2022 Administered Social History Tobacco Use: Social History Observation [...] Problem Status W/U Status Risk Notes Problem Uncomplicated severe persistent asthma (427308356) Severe persistent asthma, uncomplicated (J45.50) Active confirmed Problem Long-term current use of inhaled steroid (601741332) terminal carman (current) use of inhaled steroids (Z79.51) Active confirmed Problem Rheumatoid arthritis (61608832) Rheumatoid arthritis (M06.9) Active confirmed Problem Asthma (391414300) Asthma (J45.909) Active conf irmed Problem Gastroesophageal reflux disease (098855979) GERD (gastroesophageal reflux disease) (K21.9) Active confirmed Problem Hypothyroidism (85170281) Hypothyroidism (E03.9) Active confirmed Problem Type 2 diabetes mellitus (79869859) Type 2 diabetes mellitus (E11.9) Active confirmed Problem Lumbar radiculopathy (225767996) Lumbar radiculopathy (M54.16) Active confirmed Problem Well adult (769964992) Well adult (Z00.00) Active confirmed Problem Type II diabetes mellitus well controlled (585114884) Diabetes mellitus type 2, controlled (E11.9) Active confirmed Problem Methicillin resistant Staphylococcus aureus (556975948) MRSA (methicillin resistant Staphylococcus aureus) (A49.02) Active confirmed Problem Multiple pulmonary nodules (363025698) Multiple pulmonary nodules (R91.8) Active confirmed Problem Exacerbation of asthma (045585463) Acute asthma exacerbation (J45.901) Active confirmed Problem Immunoglobulin subclass deficiency (220090253) 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) Active confirmed Problem Inappropriate sinus tachycardia (232573751) Inappropriate sinus tachycardia (R00.0) Active confirmed Problem Common peroneal nerve lesion (596121252) Peroneal neuropathy, 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) Active confirmed Problem Decreased diffusion capacity of lung (83462993) Decreased diffusion capacity of lung (R94.2) Active confirmed Problem Laceration of kn ee without complication, unspecified laterality, subsequent encounter (S81.019D) Active confirmed Problem MCC (curre nt) use of immunosuppressive biologic (Z79.620) Active confirmed Rinvoq (upadac itinib) Vital Signs Heart Rate 83 /min 11/17/2024 Pre & Post Inje ction Temperature 98.7 degrees Fahrenheit 03/22/2025 Respiratory Rate 18 /min 11/17/2024 Pre & Post Injection Oximetry 97 % 11/17/2024 Pre & Post Inje ction Blood pressure diastolic 72 mm Hg 03/22/2025 Height 57 in 03/22/2025 Blood pressure systolic 118 mm Hg 03/22/2025 Weight 173.6 lbs 03/22/2025 BMI 37.56 kg/m2 03/22/2025 Encounters Encounter Location Date Provider Diagnosis [facility] [address] [place] [address] 06/17/2024 Ricardo Hoy Acute bronchitis, unspecified organism J20.9 and Cough R05.9 [facility] [address] [place] [address] 05/25/2024 Ricardo Hoy Well adult Z00.00 [facility] [address] [place] [address] 03/19/2025 Ricardo Hoy Laceration of knee w ithout complication, unspecified laterality, subsequent encounter S81.019D [facility] [address] [place] [address] 03/22/2025 Ricardo Hoy Laceration of knee w ithout complication, unspecified laterality, subsequent encounter S81.019D [facility] [address] [place] [address] 07/13/2024 Ricardo Hoy Severe persistent as thma, uncomplicated J45.50 and Superficial phlebitis I80.9 [facility] [address] [place] [address] 08/24/2024 Ricardo Hoy Acute bronchitis, unspecified organism J20.9 and Right lower lobe pneumonia J18.9 [facility] [address] [place] [address] 03/17/2025 Ricardo Hoy Laceration of knee w ithout complication, unspecified laterality, subsequent encounter S81.019D [facility] [address] [place] [address] 10/28/2024 Dannykary Dupree Severe persistent as thma, uncomplicated J45.50 ; Multiple pulmonary nodules R91.8 ; Immunoglobulin subclass deficiency D80.3 ; Rheumatoid arthritis M06.9 ; Diabetes mellitus type 2, controlled E11.9 ; terminal carman (current) use of inhaled steroids Z79.51 ; terminal carman (current) use of immunosuppressive biologic Z79.620 and Obesity E66.9 [facility] [address] [place] [address] 04/29/2024 Danny Dupree Severe persistent as thma, uncomplicated J45.50 ; Multiple pulmonary nodules R91.8 ; Decreased diffusion capacity of lung R94.2 ; Immunoglobulin subclass deficiency D80.3 ; Rheumatoid arthritis M06.9 ; Diabetes mellitus type 2, controlled E11.9 ; MCC (current) use of inhaled steroids Z79.51 ; terminal carman (current) use of immunosuppressive biologic Z79.620 ; History of pulmonary embolism Z86.711 ; History of COVID-19 Z86.16 ; Morbid (severe) obesity due to excess calories E66.01 and Body mass index [BMI] 40.0-44.9, adult Z68.41 [facility] [address] [facility] [place] [address] 11/17/2024 Danny Dupree Severe persistent as thma, uncomplicated J45.50 [facility] [address] [facility] [place] [address] 04/01/2024 Danny Dupree [facility] [address] [facility] [place] [address] 04/06/2024 Danny Dupree Severe persistent as thma, uncomplicated J45.50 [facility] [address] [facility] [place] [address] 04/29/2024 Danny [facility] [address] [place] [address] 05/15/2024 Ricardo [facility] [address] [place] [address] 05/18/2024 Ricardo ute [facility] [address] [place] [address] 05/21/2024 Ricardo [facility] [address] [place] [address] 05/24/2024 Ricardo ute [facility] [address] [place] [address] 05/25/2024 Ricardo [facility] [address] [place] [address] 06/25/2024 Ricardo Moran [facility] [address] [place] [address] 07/02/2024 Ricardo Moran Cough R05.9 [facility] [address] [place] [address] 07/05/2024 Ricardo Moran [facility] [address] [place] [address] 07/09/2024 Ricardo [facility] [address] [place] [address] 07/13/2024 Ricardo [facility] [address] [place] [address] 07/29/2024 Ricardo Hoy Severe persistent as thma, uncomplicated J45.50 [facility] [address] [facility] [place] [address] 08/10/2024 Ricardo Hoy [facility] [address] [facility] [place] [address] 08/21/2024 Ricardo Hoy [facility] [address] [place] [facility] [address] 08/24/2024 Ricardo Hoy Hypothyroidism E03.9 [facility] [address] [place] [facility] [address] 08/25/2024 Ricardo Chandlery [facility] [address] [place] [facility] [place] [address] 09/16/2024 Ricardo Hoy Severe persistent as thma, uncomplicated J45.50 Pulmonary [facility] [address] [place] [facility] [place] [address] 09/16/2024 [facility] [address] [place] [facility] [address] 11/09/2024 [facility] Pul[facility] [address] [place] [facility] [address] 11/16/2024 [facility] [address] [place] [address] 11/19/2024 Ricardo Moran [facility] [address] [place] [address] 01/25/2025 [facility] [address] [place] [facility] [place] [address] 03/12/2025 Ricardo Arteagay [facility] [address] [place] [facility] [place] [address] 03/15/2025 Ricardo Hoy Severe persistent as thma, uncomplicated J45.50 [facility] [address] [facility] [place] [address] 03/18/2025 Ricardo Hoy Abscess of bursa, le ft knee M71.062 [facility] [address] [place] [address] 03/18/2025 Ricardo Moran Assessments Encounter Date Diagnosis (ICD Code) Assessment Notes Treatment Notes Treatment Clinical Notes Section Notes 04/29/2024 Severe persistent asthma, uncomplicated (ICD-10 - J45.50) Patient is complaining of more dyspnea postoperatively from a shoulder surgery 04/14/2024. Explained the patient that I believe this is secondary to the physiology from decreased vital capacity from the abdominal binder essentially shoving her intra-abdominal contents into her chest cavity. This is causing the patient to be more short of breath with activity. The patient's obesity is not helping either-the patient was upset that her weight was addressed several times, but I replied that this is true and likely is a partial if not major contributing factor to her ongoing symptoms. Reviewed Dr. Arias's notes. The plan is to treat her specific immunodeficiency over the winter and see how she is. Biologic therapy has been deferred until then. I have voiced understanding that is difficult to lose weight, but the patient was strongly advised to make her best attempt at being as active as possible and watching caloric intake. Follow-up 6 months. 10/28/2024 Severe persistent asthma, uncomplicated (ICD-10 - J45.50) Ongoing dyspnea and coughing despite Advair & Spiriva. Worsening with exertion and cough remains productive. She has lost 15 pounds without significant improvement in dyspnea. Reviewed labs - eosinophils were elevated on [facility] labs 05/20/2024 @ 4.8% / absolute count 500. With productive cough, question type 2 inflammation - with this in mind, will look into Dupixent opposed to Fasenra/Nucala. Explained to patient that Dupixent is an injection, and it is in conjunction with her current inhalers. It may also be too expensive to afford. She voiced understanding and wished to proceed. Beginning paperwork in the office. F/U 3 months or sooner PRN. 10/28/2024 Multiple pulmonary nodules (ICD-10 - R91.8) Stable pulmonary nodules 04/09/2022 through 10/18/2023. No further imaging recommended according to current Fleischner Society Guidelines. 05/25/2024 Well adult (ICD-10 - Z00.00) 06/17/2024 Acute bronchitis, unspecified organism (ICD-10 - J20.9) Rest and drink more liquids, especially water. You may use a humidifier or vaporizer to help keep the drainage moist. Ikbb-pqm-ikxdjnl Nasal Saline may help the stuffy and runny nose. Use Ibuprofen and or Tylenol as needed for fever, chills, body aches or pain. Children 5 years old should not be given aioz-iza-cwyvkbr cough and cold medications such as guaifenesin and dextromethorphan. If you're over age 5, you may try rlji-ehk-qomirvi cold medications such as guaifenesin and dextromethorphan, or multi-symptom cold reliever such as Dayquil to help reduce the symptoms. Antibiotics have been prescribed. You should take these until completed and follow the directions. Antibiotics can sometimes cause upset stomach, and in rare cases, serious allergic reactions or serious gastrointestinal problems. If you start having severe abdominal pain, severe vomiting, or bloody diarrhea, you should be reevaluated by your physician or urgent care immediately. Follow up with your Primary Care Provider or return to clinic if symptoms do not improve within 3-5 days. If you develop severe symptoms such as shortness of breath, repeated vomiting, coughing up blood, or chest pain you should go to the emergency room or call 911 06/17/2024 Cough (ICD-10 - R05.9) 07/13/2024 Severe persistent asthma, uncomplicated (ICD-10 - J45.50) 07/13/2024 Superficial phlebitis (ICD-10 - I80.9) calling b ack if getting worse 08/24/2024 Acute bronchitis, unspecified organism (ICD-10 - J20.9) Rest and drink more liquids, especially water. You may use a humidifier or vaporizer to help keep the drainage moist. Xmmc-yji-fsqfmtp Nasal Saline may help the stuffy and runny nose. Use Ibuprofen and or Tylenol as needed for fever, chills, body aches or pain. Children 5 years old should not be given plrq-mdk-vzeuaqd cough and cold medications such as guaifenesin and dextromethorphan. If you're over age 5, you may try kiqj-qkk-poewoml cold medications such as guaifenesin and dextromethorphan, or multi-symptom cold reliever such as Dayquil to help reduce the symptoms. Antibiotics have been prescribed. You should take these until completed and follow the directions. Antibiotics can sometimes cause upset stomach, and in rare cases, serious allergic reactions or serious gastrointestinal problems. If you start having severe abdominal pain, severe vomiting, or bloody diarrhea, you should be reevaluated by your physician or urgent care immediately. Follow up with your Primary Care Provider or return to clinic if symptoms do not improve within 3-5 days. If you develop severe symptoms such as shortness of breath, repeated vomiting, coughing up blood, or chest pain you should go to the emergency room or call 911 08/24/2024 Right lower lobe pneumonia (ICD-10 - J18.9) 11/17/2024 Severe persistent asthma, uncomplicated (ICD-10 - J45.50) Area was cleaned with Alcohol and allowed enough time to dry. The skin was pinched between the thumb and index finger (around an inch and a half apart) and held in that position until the medication was fully administered from the auto-injector. Patient was given two Dupixent 300mg/2mL Prefilled Pens SQ right lower abdomen. Band-aid was placed on the patient's arm. Patient tolerated the procedure without difficulty. Patient was held for the appropriate time. No adverse reactions were noted. Post Injection Vitals taken. [facility]:[id number]- 00. Lot#[id number]. Exp:2026-06-30 . Patient was advised to self administer Dupixent in 2 weeks at home. Kanu Brandon CMA 03/17/2025 Laceration of knee without complication, unspecified laterality, subsequent encounter (ICD-10 - S81.019D) 03/19/2025 Laceration of knee without complication, unspecified laterality, subsequent encounter (ICD-10 - S81.019D) 03/22/2025 Laceration of knee without complication, unspecified laterality, subsequent encounter (ICD-10 - S81.019D) Repeat rocephin - cx wound reese drainage - setting up with ortho 04/06/2024 Severe persistent asthma, uncomplicated (ICD-10 - J45.50) 07/02/2024 Cough (ICD-10 - R05.9) 07/29/2024 Severe persistent asthma, uncomplicated (ICD-10 - J45.50) 08/24/2024 Hypothyroidism (ICD-10 - E03.9) 09/16/2024 Severe persistent asthma, uncomplicated (ICD-10 - J45.50) 03/15/2025 Severe persistent asthma, uncomplicated (ICD-10 - J45.50) 03/18/2025 Abscess of bursa, left knee (ICD-10 - M71.062) 10/28/2024 Immunoglobulin subclass deficiency (ICD-10 - D80.3) F/U with Dr. Arias. 04/29/2024 Multiple pulmonary nodules (ICD-10 - R91.8) Pulmonary nodules apparently unchanged from 06/14/2023 to 04/09/2022 and not mentioned on CTA 10/18/2023 though they are still present, but less apparent. No further imaging is necessary according to current Fleischner Society Guidelines. 04/29/2024 Decreased diffusion capacity of lung (ICD-10 - R94.2) DLCO dropped from 112% to 76%. Repeat PFT showed increase to 136%. 10/28/2024 Rheumatoid arthritis (ICD-10 - M06.9) Remains on Rinvoq. F/U with rheumatology. 10/28/2024 Diabetes mellitus type 2, controlled (ICD-10 - E11.9) Discussed adverse effects of custodial systemic steroids including, but not limited to: increased risk of cataracts, elevated blood sugars/worsening of underlying diabetes mellitus, impaired wound healing, gastrointestinal ulcers, osteoporosis. 04/29/2024 Immunoglobulin subclass deficiency (ICD-10 - D80.3) Patient is seeing Dr. Arias. 04/29/2024 Rheumatoid arthritis (ICD-10 - M06.9) On Rinvoq. F/U with rheumatology. 10/28/2024 terminal carman (current) use of inhaled steroids (ICD-10 - Z79.51) Patient was counseled to rinse & gargle with water after inhaled corticosteroid use. 10/28/2024 terminal carman (current) use of immunosuppressive biologic (ICD-10 - Z79.620) Rinvoq (upadacitini b) On Rinvoq 04/29/2024 Diabetes mellitus type 2, controlled (ICD-10 - E11.9) Discussed adverse effects of custodial systemic steroids including, but not limited to: increased risk of cataracts, elevated blood sugars/worsening of underlying diabetes mellitus, impaired wound healing, gastrointestinal ulcers, osteoporosis. 04/29/2024 terminal carman (current) use of inhaled steroids (ICD-10 - Z79.51) Patient was counseled to rinse & gargle with water after inhaled corticosteroid use. 10/28/2024 Obesity (ICD-10 - E66.9) Patient's weight has dropped from 193.4# on 04/29/2024 to 178.2# today, 10/28/2024. Despite this weight loss, her breathing has not significantly improved. She voiced she knows she needs to continue losing weight and is working at it. 04/29/2024 MCC (current) use of immunosuppressive biologic (ICD-10 - Z79.620) Rinvoq (upadacitini b) On Rinvoq 04/29/2024 History of pulmonary embolism (ICD-10 - Z86.711) 07/2020 Provoked secondary to COVID-19. She completed a year of Eliquis ~07/2021. CTA 10/18/2023 negative for pulmonary emboli. 04/29/2024 History of COVID-19 (ICD-10 - Z86.16) 05/2020; 03/2022 Two episodes: 05/2020 which resulted in pulmonary emboli, and 05/2022. 04/29/2024 Morbid (severe) obesity due to excess calories (ICD-10 - E66.01) Patient's weight is inducing a restrictive pulmonary physiology. Weight loss indicated: Decrease calories, increase activity. 04/29/2024 Body mass index [BMI] 40.0-44.9, adult (ICD-10 - Z68.41) 10/28/2024 Other Plan Of Treatment Pending Test Test Name Order Date CMP (COMPLETE METABOLIC PANEL) 4 SED RATE (ESR) 03/18/2025 HEMOGLOBIN A1C (GLYCO) 05/25/2024 LIPID PANEL (CHOL/TRIG/HDL/LDL) 05/25/20 CBC WITH DIFF 05/25/2024 I & D Abscess Complicated- performed CBC 03/18/2025 Insulin Level 05/25/2024 CULTURE WOUND 03/22/2025 XR CHEST 2 V 08/24/2024 XR CHEST 2 V 07/02/2024 THYROID PANEL (T4/TSH/FREE T3) 5 THYROID PANEL (T4/TSH/FREE T3) 11/25/[address] KNEE LEFT WO CONTRAST 03/18/2025 Next Appt Details Provider Name:Ricardo Moran, 03:15:00 PM, [address] [place], [address], Insurance Providers Payer Name Payer Address Payer Phone Subscriber Number Group Number Insured Name Patient Relationship to Insured Coverage Start Date Coverage End Date [employer] LOCAL PLAN [address] [place] [address] [id number] Izabella Gomez Self - patient is the insured 1 Medications Administered Medication Instructions Date of Administration Dosage Notes Ceftriaxone 1 gram 03/19/2025 1 g Dupixent 11/17/2024 600 mg Patient jesus t the medication with her to the appt. today.Kanu Brandon 11/17/2024 10:51:20 AM EDT > Medical (General) History Medical History History ICD Code Multiple pulmonary nodules R91.8 Severe persistent asthma, uncomplicated J45.50 Diabetes mellitus type 2, controlled E11 .9 Hypothyroidism E03.9 Diverticulosis K57.90 History of pulmonary embolism Z86.711 History of COVID-19 Z86.16 Skin cancer C44.90 Rheumatoid arthritis M06.9 terminal carman (current) use of inhaled stero ids Z79.51 terminal carman (current) use of immunosuppres sive biologic Z79.620 Surgical History Surgery Date(Month/Year) Lesion Excision 06/14/2014 Tendon Repair-Left Foot hysterectomy, vaginal tonsillectomy Cholecystectomy shoulder arthroscopy-left 04/14/2024 shoulder replacement-left 05/23 EGD 05/03/2022 right knee replacement arthroscopic knee surgery-Left Hospitalization History Reason Date(Month/Year) Sepsis/Cellulitis-[facility] 01/20/2024 Diarrhea/Nausea/Vomiting-[facility] 01/08/2024 Asthma Exacerbation-[facility] 01/04/2024 Asthma Exacerbation 09/15/2022 Esophageal Obstruction due to food bolus 05/03/2022
--- OUTSIDE RECORDS SUMMARY | 2025-03-22 12:39 | XMS_ITS | CCD ---
Author Organization [facility] Inform ion Partnership [facility] Care Team Providers Care Optical Manager Name Role Phone Aline Guerrero Unavailable [place], [...] Care Provider ALINE GUERRERO Primary Care Physician [phone] Jesus Higgins Jr. Unavailable [phone] Tonia Zavala Unavailable Naty Luke Unavailable Consuelo Rosales Unavailable Aline Guerrero MD Primary Care Provider MD Aline Guerrero Primary Care Provider NANCY Rosales Attending Provider RADHA Berry Attending Provider [phone] Naomie Berry Unavailable Aline Guerrero MD Primary Care Provider Aline Guerrero MD Primary Care Provider Aline Guerrero MD Primary Care Provider [phone] ALINE GUERRERO Primary Care Physician MD Aline Guerrero Primary Care Provider RADHA Berry Attending Provider Silvestre Benavides Primary Care Physician CESAR ., DR ALINE Conner Primary Care Unavailable APLING, MERLINE B Consulting Unavailable APLING, MERLINE B Attending Unavailable APLING, MERLINE B Admitting Unavailable ROSS, SILVESTRE REGINE Primary Care Unavailable ZIEBMIA, DR NHUNG Harry Consulting Unavailable SHERRI PINEDO Attending Unavailable HIGHLANDERSHERRI Admitting Unavailable HIGHLANDERSHERRI Consulting Unavailable GUERRERO ., [...] Unavailable GuerreroAline lyons MD Primary Care Provider MEDARDO VUONG Attending Unavailable ALINE GUERRERO Primary [...] Unavail able Rosa Dunbar Attending Unavail able Silvetsre Benavides Primary Care Unavailable Silvestre Benavides MD Primary Care Provider MD Aline Guerrero Primary Care Provider [phone] [place], MEAT TEAM MEMBER Tondra K Attending Provider ALINE GUERRERO Referring Unavailable ALINE GUERRERO Primary Care Unavailable Louis Cortez DO Unavailable Aline Guerrero MD Primary Care Provider ALINE GUERRERO Primary Care Unavailable ENTEZARI, JOHN Referring Unavailable Kirit MEAT TEAM MEMBER.Berry ASHFORD Primary Care Provider [phone] Berry Beth Attending Unavailable Berry Beth Attending [...] Attending Unavailable Diane, Gaston S. Attending Unavailable Naveen Martin Attending Unavailable Kirit, UNIT COORDINATOR Berry Olivas Attending Unavailable Kirit, CHINO Olivas Attending Unavailable MARISOLAndrea MERCEDES Admitting Unavailable Andrea DAMON Attending Unavailable [facility] [place], XXXX Consulting Unavailable Gurpreet Smith Consulting Unavailable MD Gurpreet Smith Consulting Unavailable Gurpreet Smith Consulting Unavailable Kodak Stanton Consulting UnavailMD Kodak Hicks Consulting Unava ilKodak Garcia Consulting Unavaila Berry Mendoza Primary Care Physician [phone] Lalo Boyd Attending Unavailable Lalo Boyd Admitting [...] Unavaila ble ARABELLA JEFFREY Attending Unavailable Kirit MEAT TEAM MEMBER.Berry ASHFORD Primary Care Provider Lalo Boyd Admitting Unavailable Lalo Boyd Attending Unavailable KiritBerry holm Admitting Unavailable Albaro Baltazar Attending Unavailable KiritBerry Attending Unavailable ISAAC, DO Ronobir R Admitting Unavailabl e ISAAC, DO Ronobir R Attending Unavailabl e Aniket, Dmitriy FYury Consulting Unavailable Aniket, Mohamed FYury Consulting Unavailable Aniket, Mohamed F. Consulting Unavailable Kirit MEAT TEAM MEMBER.Berry ASHFORD Primary Care Provider Berry Beth MD Unavailable Kellie Watson MD Unavailable [phone] Santino Moran MD Primary Care Provider Silvestre Benavides MD Primary Care Provider [phone] Silvestre Benavides MD Primary Care Provider [phone] Santino Moran Primary Care Physician ROS CHRISTIANSON [...] [phone] Siomara Moreland APRN Attending Provider [phone] Ze Francois MD Attending Provider [phone] Siomara Moreland APRN Attending Provider [phone] Santino Moran MD Primary Care Provider [phone] Consuelo Rosales APRN Attending Provider [phone] Marcelle Marcos APRN Attending Provider Kirit DELINQUENT TAX COLLECTION ASSISTANT, Berry Unavailable ADAM HERANNDEZ Attending Unavailable RAMBASEClif, ADAM Conner Attending Unavailable ADAM HERNANDEZ Attending Unavailable LOUIS CORTEZ Referring Unavailable LOUIS CORTEZ Attending Unavailable ADAM HERNANDEZ Attending Unavailable MERLINE PRIETO Attending Unavailable KELLIE WATSON Attending Unavailable Ze Francois MD Attending Provider [phone] NO FAMILY, PHYSICIAN Primary Care Provider Unava [...] Care Unavailable STEVO NEFF Attending Unavailable DELVIN MORANLAS M Primary Care Unavailable KELLIE WATSON Referring [...] Attending Unavailable ARRON, JUANA Referring Unavailable Kirit, UNIT COORDINATOR Berry L Admitting Unavailable Kirit, UNIT COORDINATOR Berry L Admitting Unavailable SELWYN Curry Attending Unavailable Marcelle Bernal Attending Unavailable Tammie Cortes Attending Unavailable Kirit, UNIT COORDINATOR Berry L Attending Unavailable Kirit, UNIT COORDINATOR Berry L Attending Unavailable NONE, XXXX Referring [...] (antibiotic) (1 source) Cephalexin Drug Allergy 10-19-19 [facility] Work Phone: Penicillins (antibiotic) (1 source) Penicillins Drug Allergy 01-05-20 04 [facility] Unclassified (7 sources) No Latex Allergy [Other] Propensity to adverse reactions 10-19-19 05 [facility] Work Phone: (20 sources) cephalexin; Translations: [CEPHALEXIN] Drug Allergy 10-19-19 05 Hives, Weal (disorder), Other [facility] Work Phone: (20 sources) Penicillins; Translations: [PENICILLINS] Propensity to adverse reactions to drug 01-05-20 04 [facility] Work Phone: (20 sources) Penicillin G; Translations: [penicillin G benzathine] Drug Allergy 09-13-19 23 Weal (disorder) [facility] (20 sources) Cephalexin; Translations: [Keflex] Drug Allergy 07-01-18 85 hives/breathin g issues [facility] Rep[facility] (16 sources) Penicillins (Antibiotic) Drug allergy hives /breathing issues [facility] Other (20 sources) apixaban; Translations: [APIXABAN] Drug Allergy 01-24-20 22 [facility] ([facility] sources) Penicillins Propensity to adverse reactions 01-05-20 04 [facility] (20 sources) apixaban; Translations: [apixaban] Drug Allergy Unknown (qualifier value) [facility] (20 sources) cefprozil; Translations: [cefprozil] Drug Allergy Unknown (qualifier value) [facility] (20 sources) dabigatran etexilate; Translations: [dabigatran] Drug Allergy Unknown (qualifier value) [facility] (2 sources) Penicillins Drug allergy (disorder) 07-01-18 65 [facility] (20 sources) apixaban Drug Allergy 01-24-20 22 Itching, [facility] (20 sources) Penicillins Propensity to adverse reactions to drug 01-05-20 04 [facility] (2 sources) Penicillin; Translations: [penicillin] Drug Allergy [facility] (20 sources) Benzathine penicillin - chemical Allergy to substance 03-01-20 [facility] (20 sources) Cefprozil Allergy to substance 05-06-20 Unknown [facility] (20 sources) dabigatran etexilate Drug Allergy 05-06-20 23 Unknown [facility] (20 sources) Sulfamethoxazole / Trimethoprim; Translations: [Bactrim] Drug Allergy [facility] Rep[facility] (20 sources) tree nut, unspecified; Translations: [TREE NUTS] Drug Allergy 04-14-20 24 Anaphylaxis [facility] (20 sources) dabigatran etexilate Drug Allergy 11-11-19 24 Unknown [facility] (4 sources) Penicillins Drug Allergy 01-05-20 04 Hives [facility] (1 source) Cephalexin Drug Allergy 12-21-19 [facility] Repository (1 source) Penicillins Drug allergy (disorder) 12-21-19 [facility] Repository Medications Current Medications Medication Drug [...] Start: 01-23-2022 take 2 tablets by mo [facility] every four hours as needed acetaminophen [...] 1 puff Inhalation every 12 hrs Active [id number] 200 actuat albuterol 0.09 mg/actuat metered dose inhaler (20 sources) beta2-Adren ergic Agonist Start: 11-07-2023 take 1 puff(s) by inhalation every four to six hours Start: 08-05-2023 take 2 puff(s) by mo [facility] every four hours as needed albuterol HFA 90 mcg/act inhaler INHALE 2 PUFFS BY MOUTH EVERY 4 HOURS NEEDED FOR SHORTNESS OF BREATH 08/05/2023 Active Start: 09-05-2022 take 1 dose by inhal ation every four hours ProAir RespiClick 90 mcg/inh inhalation powder 2 puff(s), Inhalation, q4hr for wheezing or SOB, 1 EA, Refill(s) 11, [facility]/pharmacy #[id number], 144.8, cm, 09/05/22 15:24:00 EST, Height/Length Dosing, 82.7, kg, 09/05/22 15:24:00 EST, Weight Dosing Start Date: 09/05/22 Status: Ordered Start: 09-05-2022 End: 10-21-2023 take 1 dose by inhalation every four hours ProAir RespiClick 108 (90 Base) MCG/ACT breath-activated inhaler 2 puff(s), Inhalation, q4hr for wheezing or SOB, 1 EA, Refill(s) 11, [facility]/pharmacy #[id number], 144.8, cm, 09/05/22 15:24:00 EST, Height/Length [...] mL, NEB, 6x/Day, 180 mL, Refill(s) 1, [facility]/pharmacy #[id number], 143.2, cm, 10/01/22 7:16:00 EDT, Height/Length [...] day(s), # 21 cap(s), Refills(s) 0, Pharmacy: [facility]/pharmacy #[id number], 143, cm, 12/27/23 15:07:00 EDT, Height/Length [...] oral solution (2 sources) alpha-Adrenergic Agonist, Uncompetitive X-olgecc-H-aspartat e Receptor Antagonist, Sigma-1 Agonist Start: 08-09-2024 End: 08-14-2024 take 10 mL by mouth four times daily Bromfed DM oral syrup 10 mL, Oral, QID for 5 day(s), 200 mL, Refill(s) 0, [facility]/pharmacy #[id number], 142, cm, 08/09/24 11:57:00 EST, Height/Length Dosing, 80.4, kg, 08/09/24 11:57:00 EST, Weight Dosing Start Date: 08/09/24 Stop Date: 08/14/24 Status: Ordered Start: 09-07-2022 take 5 mL by mouth f our times daily Bromfed DM oral syrup 5 mL, Oral, QID for cold symptoms, 200 mL, Refill(s) 0, [facility]pharm[facility] #[id number], 150, cm, 09/06/22 23:56:00 EST, Height/Length [...] spasm, # 30 tab(s), Refills(s) 0, Pharmacy: [facility]/pharmacy #[id number], 149, cm, 02/06/24 15:32:00 EDT, Height/Length [...] mg/ml oral solution (6 sources) Phenothiazine, Uncompetitive W-dxkerd-X-aspartate Receptor Antagonist, Sigma-1 Agonist Start: 12-31-2023 take 5 mL by mouth every six hours for cough dextromethorphan-promethazine 15 mg-6.25 mg/5 mL Oral Syrup 5 mL 5 mL, Oral, q6hr for cough, 120 mL, Refill(s) 0, [facility]/pharmacy #[id number], 154, cm, 12/31/23 14:02:00 EDT, Height/Length Dosing, 90.2, kg, 12/31/23 14:02:00 EDT, Weight Dosing Start Date: 12/31/23 Status: Ordered Start: 10-05-2023 take 5 mL by mouth every six hours for cough dextromethorphan-promethazine 15 mg-6.25 mg/5 mL Oral Syrup 5 mL 5 mL, Oral, q6hr for cough, 240 mL, Refill(s) 0, [facility]/pharmacy #[id number], 143, cm, 10/05/23 14:20:00 EDT, Height/Length Dosing, 89, kg, 10/05/23 14:20:00 EDT, Weight Dosing Start Date: 10/05/23 Status: Ordered dextromethorphan hydrobromide 1.5 mg/ml / pyrilamine maleate 1.5 mg/ml oral solution (11 sources) Uncompetitive N-rfgaim-J-aspartate Receptor Antagonist, Sigma-1 Agonist Start: 04-15-2022 take 10 mL by mouth every eight hours Randolph DM 7.5-7.5 MG/5ML 10 mL Orally every [...] day(s), # 14 tab(s), Refills(s) 0, Pharmacy: [facility]/pharmacy #[id number], 142, cm, 08/23/24 14:39:00 EST, Height/Length [...] day(s), # 14 cap(s), Refills(s) 0, Pharmacy: [facility]/pharmacy #[id number], 143, cm, 12/27/23 15:07:00 EDT, Height/Length Dosing, 89, kg, 12/27/23 15:07:00 EDT, Weight Dosing Start Date: 12/27/23 Stop Date: 01/03/24 Status: Ordered Start: 09-18-2023 take 1 capsule by mo [facility] twice daily doxycycline hyclate 100 mg Cap 100 mg = 1 cap(s), Oral, BID, # 30 cap(s), Refills(s) 1, Pharmacy: [facility]/pharmacy #[id number], 143.2, cm, 09/18/23 17:04:00 EDT, Height/Length Dosing, 88.2, kg, 09/18/23 17:04:00 EDT, Weight Dosing Start Date: 09/18/23 Status: Ordered Start: 09-07-2022 End: 09-14-2022 take 1 tablet by mouth every twelve hours doxycycline hyclate 100 mg Tab 100 mg = 1 tab(s), Oral, q12hr, X 7 day(s), # 14 tab(s), Refills(s) 0, [id number], cm, 09/06/22 23:56:00 EST, Height/Length Dosing, 87.3, kg, 09/06/22 23:56:00 EST, Weight Dosing Start Date: 09/07/22 Stop Date: 09/14/22 Status: Ordered Start: 04-15-2022 take 1 capsule by mo [facility] every twelve hours Doxycycline Monohydrate 100 MG 1 capsule Orally every 12 hrs for 10 days Mar, Active Start: 01-03-2022 [facility] doxy[facility]ine monohydrate 100 MG tablet Take 1 tablet by mouth 2 times daily. 0 01/03/2022 Active Start: 04-18-2011 End: 12-20-2023 Doxycycline Monohydrate 40 m g capsule Take 1 capsule by mouth. 0 04/18/2011 12/20/2023 Discontinued Comment on above: Take 1 capsule by mo [facility]. 2 ml dupilumab 150 mg/ml auto-injector (4 sources) Interleukin-4 Receptor alpha Antagonist Start: 12-20-2024 dupilumab (Dupix ent) 200 MG/1.14ML injection Inject under the skin Active dupilumab (DUPIXENT SYRINGE) 100 mg/0.67 mL injection (2 sources) dupilumab (DUPIXENT SYRINGE) 100 mg/0.67 mL injection Active [id number] 0.3 ml EPINEPHrine 1 mg/ml auto-injector (20 [...] fluticasone (FLONASE) 50 mcg/actuation nasal spray 1 [place] daily at bedtime. in each nostril. 0 [...] morning . Active Comment on above: 1 [place] daily at bed time. in each nostril. [...] DAILY IN THE MORNING AND AT NIGHT, [id number], 149, cm, 01/04/24 16:18:00 EDT, Height/Length Dosing, [...] puff inhales in the morning and night, [facility]/pharmacy #[id number], 143.2, cm, 10/01/22 7:16:00 EDT, Height/Length [...] Ordered Start: 01-07-2024 take 2 tablets by [facility] twice daily Mucinex 600 mg Tab-ER 1,200 mg = 2 tab(s), Oral, BID, # 12 tab(s), Refills(s) 0, Pharmacy: [facility]/pharmacy #[id number], 149, cm, 01/04/24 16:18:00 EDT, Height/Length [...] q4hr for cough, 60 mL, Refill(s) 0, [facility]/pharmacy #[id number], 144, cm, 12/29/23 20:32:00 EDT, Height/Length [...] day(s), # 7 tab(s), Refills(s) 0, Pharmacy: [facility]/pharmacy #[id number], 149, cm, 01/20/24 22:07:00 EDT, Height/Length [...] day(s), # 7 tab(s), Refills(s) 0, Pharmacy: [facility]/pharmacy #[id number], 144, cm, 12/29/23 20:32:00 EDT, Height/Length [...] labeling, # 21 tab(s), Refills(s) 0, Pharmacy: [facility]/pharmacy #[id number], 143.2, cm, 09/18/23 17:04:00 EDT, Height/Length Dosing, 88.2, kg, 09/18/23 17:04:00 EDT, Weight Dosing Start Date: 09/27/23 Status: Ordered Start: 06-28-2023 take 1 tablet by mouth once me thylPREDNISolone 4 mg tab dosepak = 1 packet(s), Oral, Once, as directed on package labeling, # 21 tab(s), Refills(s) 0, Pharmacy: [facility]/pharmacy #[id number], 143.2, cm, 06/28/23 10:53:00 EST, Height/Length [...] Daily, # 30 tab(s), Refills(s) 2, Pharmacy: [facility]/pharmacy #[id number], 149, cm, 02/06/24 15:32:00 EDT, Height/Length [...] day(s), # 21 tab(s), Refills(s) 0, Pharmacy: [facility]/pharmacy #[id number], 149, cm, 01/08/24 7:53:00 EDT, Height/Length Dosing, 88.9, kg, 01/08/24 7:53:00 EDT, Weight Dosing Start Date: 01/11/24 Stop Date: 01/18/24 Status: Ordered Start: 10-09-2021 End: 10-16-2021 take 1 tablet by mouth three times daily Flagyl 250 mg Tab 250 mg = 1 tab(s), Oral, TID, X 7 day(s), # 21 tab(s), Refills(s) 0, Pharmacy: [facility]/pharmacy #[id number], 145.4, cm, 10/04/21 15:27:00 EDT, Height/Length [...] DAY, # 180 tab(s), Refills(s) 1, Pharmacy: [id number], 149, cm, 01/04/24 16:18:00 EDT, Height/Length Dosing, [...] 22 g 0 12/26/2023 12/31/2023 Active nystatin 120577 unt/ml oral suspension (1 source) Polyene Antifungal Start: 08-09-19 End: 02-16-20 25 take [id number] [IU] by mouth every six hours nystatin 100,000 units/mL Oral Susp 600,000 unit(s) = 6 mL, Oral, q6hr, retain in mouth as long as possible before swallowing, X 7 day(s), # 168 mL, Refills(s) 0, Pharmacy: [facility]/pharmacy #[id number], 142, cm, 08/09/24 11:57:00 EST, Height/Length [...] 12/07/2021 Active take 1 capsule by mo [facility] once daily in the morning omeprazole [...] Active Start: 11-28-2022 [facility] six hours as needed for nausea ondansetron 4 mg Tab 4 mg = 1 tab(s), Oral, As Directed, PRN Nausea/Vomiting, every 6 hours as needed for nausea, # 15 tab(s), Refills(s) 0, [id number] 149, cm, 02/06/24 15:32:00 EDT, [...] # 20 tab(s), Refills(s) 3, [id number] Start Date: 10/26/19 Status: Ordered [...] day(s), # 10 cap(s), Refills(s) 0, Pharmacy: [facility]/pharmacy #[id number], 142, cm, 08/09/24 11:57:00 EST, Height/Length [...] by hermelinda th twice daily Potassium Chloride (Qfv-Vcra-Pgr M20) 20 mEq oral tablet, extended release 20 mEq = 1 tab(s), Oral, BID, # 60 tab(s), Refills(s) 0, Pharmacy: [facility]/pharmacy #[id number], 149, cm, 01/08/24 7:53:00 EDT, Height/Length Dosing, 88.9, kg, 01/08/24 7:53:00 EDT, Weight Dosing Start Date: 01/13/24 Status: Ordered predniSONE 20 mg oral tablet (20 sources) Start: 08-23-2024 End: 08-28-2024 take 2 tablets by mouth once daily predniSONE 20 mg Tab 40 mg = 2 tab(s), Oral, Daily, X 5 day(s), # 10 tab(s), Refills(s) 0, Pharmacy: [facility]/pharmacy #[id number], 142, cm, 08/23/24 14:39:00 EST, Height/Length [...] stop, # 20 tab(s), Refills(s) 0, Pharmacy: [facility]/pharmacy #[id number], 149, cm, 01/04/24 16:18:00 EDT, Height/Length Dosing, 90.2, kg, 01/04/24 16:18:00 EDT, Weight Dosing Start Date: 01/07/24 Status: Ordered Start: 12-29-2023 predniSONE 20 mg Tab See Instructions, Take 3 tabs for 3 days, then 2 tabs for 3 days, then 1 tab for 3 days., # 18 tab(s), Refills(s) 0, Pharmacy: [facility]/pharmacy #[id number], 144, cm, 12/29/23 20:32:00 EDT, Height/Length Dosing, 92.3, kg, 12/29/23 20:32:00 EDT, Weight Dosing Start Date: 12/29/23 Status: Ordered Start: 12-27-2023 End: 01-01-2024 take 2 tablets by mouth once daily predniSONE 20 mg Tab 40 mg = 2 tab(s), Oral, Daily, X 5 day(s), # 10 tab(s), Refills(s) 0, Pharmacy: [facility]/pharmacy #[id number], 143, cm, 12/27/23 15:07:00 EDT, Height/Length Dosing, 89, kg, 12/27/23 15:07:00 EDT, Weight Dosing Start Date: 12/27/23 Stop Date: 01/01/24 Status: Ordered Start: 09-14-2023 predniSONE 20 mg Tab See Instructions, TAKE 3 TABS DAILY X2 DAYS, THEN 2 TABS DAILY X3 DAYS, 1 TAB DAILY X3 DAYS, 1/2 TAB X 2 DAYS, # 16 tab(s), Refills(s) 1, Pharmacy: [facility]/pharmacy #[id number], 143.2, cm, 09/18/23 17:04:00 EDT, Height/Length Dosing, 88.2, kg, 09/18/23 17:04:00 EDT, Weight Dosing Start Date: 09/20/23 Status: Ordered Start: 09-07-2022 End: 09-12-2022 take 1 tablet by mouth once daily predniSONE 50 mg Tab 50 mg = 1 tab(s), Oral, Daily, X 5 day(s), # 5 tab(s), Refills(s) 0, Pharmacy: [facility]/pharmacy #[id number], 150, cm, 09/06/22 23:56:00 EST, Height/Length [...] day(s), # 30 tab(s), Refills(s) 0, Pharmacy: [facility]/pharmacy #[id number], 149, cm, 09/14/21 15:32:00 EDT, Height/Length [...] DAY, # 90 tab(s), Refills(s) 4, Pharmacy: [facility]/pharmacy #[id number], 143, cm, 11/05/23 17:16:00 EDT, Height/Length [...] DAY, # 90 tab(s), Refills(s) 0, Pharmacy: [id number], 143.2, cm, 08/02/23 14:19:00 EST, Height/Length Dosing, 88.3, kg, 08/02/23 14:19:00 EST, Weight Dosing Start Date: 08/07/23 Status: Ordered Start: 03-26-2023 take 1 tablet by hermelinda th once daily levothyroxine 137 mcg (0.137 mg) Tab See Instructions, TAKE 1 TABLET BY MOUTH EVERY DAY, # 90 tab(s), Refills(s) 0, Pharmacy: [id number], 143.2, cm, 12/05/22 15:37:00 EDT, Height/Length Dosing, 85.3, kg, 12/05/22 15:37:00 EDT, Weight Dosing Start Date: 03/26/23 Status: Ordered Start: 11-14-2022 take 1 tablet by hermelinda th once daily levothyroxine 137 mcg (0.137 mg) Tab 137 mcg = 1 tab(s), Oral, Daily, # 90 tab(s), Refills(s) 0, Pharmacy: [facility]/pharmacy #[id number], 143.2, cm, 10/01/22 7:16:00 EDT, Height/Length [...] INHALATION) Inhale as instructed. 0 Active Tiotropium [place] (Spiriva With Handihaler) 18 mcg capsule, w/inhalation device (6 sources) Start: 11-07-2023 take 1 capsule by inhalation once daily Tiotropium [place] (Spiriva With Handihaler) 18 mcg capsule, w/inhalation device Active 1 CAP INHALATION Daily November 07, 2023 12:00am traMADol hydrochloride 50 mg oral tablet (10 sources) Opioid Agonist Start: 01-27-2024 take 1 tablet by mouth every twelve hours as needed for pain traMADOL 50 mg Tab 50 mg = 1 tab(s), Oral, q12hr, PRN for pain, # 30 tab(s), Refills(s) 0, Pharmacy: [facility]/pharm[facility] #[id number], 149, cm, 01/20/24 22:07:00 EDT, Height/Length Dosing, 89.5, kg, 01/20/24 22:07:00 EDT, Weight Dosing Start Date: 01/27/24 Status: Ordered Start: 01-24-2024 take 1 tablet by hermelinda th every six hours as needed for pain traMADOL 50 mg Tab 50 mg = 1 tab(s), Oral, q6hr, PRN Pain, # 12 tab(s), Refills(s) 0, Pharmacy: [facility]/pharmacy #[id number], 149, cm, 01/20/24 22:07:00 EDT, Height/Length [...] day(s), # 21 tab(s), Refills(s) 0, Pharmacy: [facility]/pharm[facility] #[id number], 149, cm, 01/27/24 15:18:00 EDT, Height/Length [...] day(s), # 6 tab(s), Refills(s) 0, Pharmacy: [facility]/pharmacy #[id number], 143.2, cm, 09/14/23 9:51:00 EDT, Height/Length [...] Active docusate sodium 50 mg / sennosides, long-term 8.6 mg oral tablet (1 source) Start: [...] at mealtime ergocalciferol (Vitamin D2) 1.25 MG (97995 UT) capsule TAKE 1 CAP BY MOUTH [...] Therapy/Dosage Form) take 1 capsule by [facility] once daily Prevacid 15 MG 1 capsule before a meal Orally Once a day for 30 day(s) Active Comment on above: Take 1 capsule by mo [facility] daily at bedtime. 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] Onset: 4 Episodic Other [...] H/O: high risk medication; Translations: [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) drug therapy] Onset: 05-07-2022 05-07-2022 Episodic Other aftercare (2 sources) 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 Author Type: Registered Nurse Type: ED Notes Filed: 03/13/2025 00:08 Note Text: Discharge instructions d/w pt and family at bedside. Stated understanding with no further questions for this nurse. Encouraged f/u with PCP and referring doctors given. Stated understanding. Prescription(S) were given X 0. [facility] HNO ID: [id number] Author: MANUEL SERNA CT Service: Radiology Author [...] PATIENT PRESENTS WITH AN IMPLANTABLE OR ATTACHED SAMPLER RADIOACTIVE WASTE: No RADIOLOGY DEPARTMENT: CT; Exam(s) Completed: Brain , Lower extremity , and Spine . Anesthesia: No PERIPHERAL IV DATA: Not applicable SIGNED BY: FOUZIA Smiley March 12, 2025 8:32 PM Normal [facility] Basic metabolic 2000 panelon 03-12-2025 Anion gap [Moles/Vol] 11 mmol/L Normal 8-15 [facility] Comment on above: Order Comment: Lorene montano Type: BLOOD SPECIMEN Ordering Facility: [facility] Address: [address] [place] [address] Performed By: #### 1 9123-9, 52691-1 #### [facility] CLIA [id number] [address] [place] [address] [place] Calcium [Mass/Vol] 9.0 mg/dL Normal 8.5-10.2 [facility] Comment on above: Order Comment: Lorene montano Type: BLOOD SPECIMEN Ordering Facility: [facility] Address: [address] [place] [address] Performed By: #### 1 9123-9, 91911-2 #### [facility] CLIA [id number] [address] [place] [address] [place] Chloride [Moles/Vol] 101 mmol/L Normal 98-107 [facility] Comment on above: Order Comment: Lorene montano Type: BLOOD SPECIMEN Ordering Facility: [facility] Address: [address] [place] [address] Performed By: #### 1 9123-9, 82910-9 #### [facility] CLIA [id number] [address] [place] CO2 [Moles/Vol] 26 mmol/L Normal 22-30 [facility] Comment on above: Order Comment: Lorene montano Type: BLOOD SPECIMEN Ordering Facility: [facility] Address: [address] [place] [address] Performed By: #### 1 9123-9, 23753-1 #### [facility] CLIA [id number] [address] [place] [address] [place] Creatinine [Mass/Vol] 0.72 mg/dL Normal 0.58-0.96 [facility] Comment on above: Order Comment: Lorene montano Type: BLOOD SPECIMEN Ordering Facility: [facility] Address: [address] [place] [address] Performed By: #### 1 9123-9, 29005-7 #### [facility] CLIA [id number] [address] eGFRcr SerPlBld CKD-EPI 2020 93 mL/min/1.73m??? Normal >=60 [facility] Comment on above: Order Comment: Lorene montano Type: BLOOD SPECIMEN Ordering Facility: [facility] Address: [address] [place] [address] Result Comment: Katlyn mated Glomerular Filtration Rate [...] actual GFR. Performed By: #### 1 9123-9, 24689-0 #### [facility] CLIA [id number] [address] [place] Glucose [Mass/Vol] 102 mg/dL High 74-99 [facility] Comment on above: Order Comment: Lorene montano Type: BLOOD SPECIMEN Ordering Facility: [facility] Address: [address] [place] [address] Result Comment: The [place] Diabetes Association (ADA) provides guidance for cutoff [...] Standards of Medical Care in Diabetes 2016, [place] Diabetes Association. Diabetes Care. 2016.39(Suppl 1). Performed By: #### 1 9123-9, 98332-1 #### [facility] CLIA [id number] [address] [place] [address] [place] Potassium [Moles/Vol] Normal [facility] Comment on above: Order Comment: Lorene montano Type: BLOOD SPECIMEN Ordering Facility: [facility] Address: [address] [place] [address] Result Comment: Unab le to assay due to interference from hemolysis. Suggest reorder as clinically indicated. Performed By: #### 1 91239, 13462-2 #### [facility] CLIA [id number] [address] [place] [address] [place] Sodium [Moles/Vol] 138 mmol/L Normal 136-144 [facility] Comment on above: Order Comment: Lorene montano Type: BLOOD SPECIMEN Ordering Facility: [facility] Address: [address] [place] [address] Performed By: #### 1 91239, 60237-7 #### [facility] CLIA [id number] [address] [place] [address] [place] Urea nitrogen [Mass/Vol] 22 mg/dL High 7-21 [facility] Comment on above: Order Comment: Lorene montano Type: BLOOD SPECIMEN Ordering Facility: [facility] Address: [address] [place] [address] Performed By: #### 1 91239, 98175-9 #### [facility] CLIA [id number] [address] [place] [address] [place] CBC panel Auto (Bld)on 03-12 Erythrocyte distribution width (RBC) [Ratio] 14.9 % Normal 11.5-15.0 [facility] Comment on above: Order Comment: Speci men Type: BLOOD SPECIMEN Ordering Facility: [facility] Address: [address] [place] [address] Performed By: #### 5 8410-2 #### [facility] CLIA [id number] [address] OF [facility] Hematocrit (Bld) [Volume fraction] 35.6 % Low 36.0-46.0 [facility] Comment on above: Order Comment: Speci men Type: BLOOD SPECIMEN Ordering Facility: [facility] Address: [address] [place] [address] Performed By: #### 5 8410-2 #### [facility] CLIA [id number] [address] [place] Hemoglobin (Bld) [Mass/Vol] 11.5 g/dL Normal 11.5-15.5 [facility] Comment on above: Order Comment: Speci men Type: BLOOD SPECIMEN Ordering Facility: [facility] Address: [address] [place] [address] Performed By: #### 5 8410-2 #### [facility] CLIA [id number] [address] MCH (RBC) [Entitic mass] 29.0 pg Normal 26.0-34.0 [facility] Comment on above: Order Comment: Speci men Type: BLOOD SPECIMEN Ordering Facility: [facility] Address: [address] [place] [address] Performed By: #### 5 8410-2 #### [facility] CLIA [id number] [address] [place] MCHC (RBC) [Mass/Vol] 32.3 g/dL Normal 30.5-36.0 [facility] Comment on above: Order Comment: Speci men Type: BLOOD SPECIMEN Ordering Facility: [facility] Address: [address] [place] [address] Performed By: #### 5 8410-2 #### [facility] CLIA [id number] [address] MCV (RBC) [Entitic vol] 89.7 fL Normal 80.0-100.0 [facility] Comment on above: Order Comment: Speci men Type: BLOOD SPECIMEN Ordering Facility: [facility] Address: [address] [place] [address] Performed By: #### 5 8410-2 #### [facility] CLIA [id number] [address] [place] Nucleated RBC (Bld) [#/Vol] 10*3/uL Normal <0.01 [facility] Comment on above: Order Comment: Speci men Type: BLOOD SPECIMEN Ordering Facility: [facility] Address: [address] [place] [address] Performed By: #### 5 8410-2 #### [facility] CLIA [id number] [address] [place] Platelet mean volume (Bld) [Entitic vol] 9.1 fL Normal 9.0-12.7 [facility] Comment on above: Order Comment: Speci men Type: BLOOD SPECIMEN Ordering Facility: [facility] Address: [address] [place] [address] Performed By: #### 5 8410-2 #### [facility] CLIA [id number] [address] Platelets (Bld) [#/Vol] 308 10*3/uL Normal 150-400 [facility] Comment on above: Order Comment: Speci men Type: BLOOD SPECIMEN Ordering Facility: [facility] Address: [address] [place] [address] Performed By: #### 5 8410-2 #### [facility] CLIA [id number] [address] [place] [address] [place] RBC (Bld) [#/Vol] 3.97 10*6/uL Normal 3.90-5.20 [facility] Comment on above: Order Comment: Speci men Type: BLOOD SPECIMEN Ordering Facility: [facility] Address: [address] [place] [address] Performed By: #### 5 8410-2 #### [facility] CLIA [id number] [address] [place] [address] [place] WBC (Bld) [#/Vol] 11.12 10*3/uL High 3.70-11.00 [facility] Comment on above: Order Comment: Speci men Type: BLOOD SPECIMEN Ordering Facility: [facility] Address: [address] [place] [address] Performed By: #### 5 8410-2 #### [facility] CLIA [id number] [address] [place] [address] [place] BRAIN WO IVCONon 03-12-[address] BRAIN WO IVCON * * *Final Report* * * DATE OF EXAM: Mar 12 2025 8:41PM [facility] [place] 0504 - CT BRAIN [...] findings. IMPRESSION: No acute intracranial hemorrhage identified. Architectural Administrative Assistant: DEBBIE Transcribe Date/Time: Mar 12 2025 9:09P Dictated by : DILSHAD AC MD This examination was interpreted and the report reviewed and electronically signed by: DILSHAD AC MD on Mar 12 2025 9:14PM EST [id number] [facility] CT CERVICAL SPINE WO IVCONon 03-12-2025 CT CERVICAL SPINE WO IVCON * * *Final Report* * * DATE OF EXAM: Mar 12 2025 8:41PM [facility] [place] 0505 - CT CERVICAL [...] Counting reference: Craniocervical junction. Anatomic Variants: None. Gas Leak Tester (topogram) images: No additional findings. Alignment: No [...] degenerative changes with C5-6 disc space narrowing. Architectural Administrative Assistant: DEBBIE Transcribe Date/Time: Mar 12 2025 9:09P Dictated by : DILSHAD AC MD This examination was interpreted and the report reviewed and electronically signed by: DILSHAD AC MD on Mar 12 2025 9:21PM EST [id number] [facility] CT KNEE WO IVCON LTon 2024 CT KNEE WO IVCON LT * * *Final Report* * * DATE OF EXAM: Mar 12 2025 8:41PM [facility] [place] 0083 - CT KNEE [...] tibial tuberosity which may represent foreign bodies. Architectural Administrative Assistant: PSCB Transcribe Date/Time: Mar 12 2025 10:05P Dictated by : BECKIE CONNELL MD This examination was interpreted and the report reviewed and electronically signed by: BECKIE CONNELL MD on Mar 12 2025 10:19PM EST [id number] [facility] ED NOTEon 03-12-2025 ED NOTE HNO ID: [id number] Author: GERA LAYNE RN Service: ? Author Type: Registered Nurse Type: ED Notes Filed: 03/12/2025 20:21 Note Text: Pt arrives to ED from home BIB EMS for c/o mechanical fall and dizziness while walking on uneven concrete. Lac to left knee bleeding controlled on arrival, denies LOC, denies blood thinners, denies HH. [facility] ED NOTE HNO ID: [id number] Author: GERA LAYNE RN Service: ? Author Type: Registered Nurse Type: ED Notes Filed: 03/12/2025 20:12 Note Text: Bed: ED-06 Expected date: 03/12/25 Expected time: Means of arrival: Comments: M2 Normal [facility] ED PROGRESS NOTE (PROVIDER)o n 03-12-2025 ED PROGRESS NOTE (PROVIDER) HNO ID: [id number] Author: ANDREW MILLER MD Service: Emergency Medicine [...] No Stemi Confirmed by GABBY WOOTEN DO ([id number]) on 03/12/2025 9:22:56 PM Medical Decision Making SIGNATURE: Andrew Miller MD PATIENT NAME: Carolina Gutierrez DATE: March 12, 2025 TIME: 11:37 PM PAGER/CONTACT #: [facility] ED PROV NOTEon 03-12-2025 ED PROV NOTE HNO ID: [id number] Author: GABBY WOOTEN DO Service: Emergency Medicine [...] Mother - Cerebral Embolism Father CVA, aneurysm, CA, - other (normal [Other]) Sister - None [...] to palpation, (more content not included)... Normal [facility] EKGon 03-12-2025 Electrocardiogram Ventricular Rate : 78 BPM Atrial Rate : 78 BPM P-R Interval : 174 ms QRS Duration : 92 ms Q-T Interval : 394 ms QTC Calculation(Bazett) : 449 ms Calculated P Gresham : 35 degrees Calculated R Gresham : -14 degrees Calculated T Gresham : 97 degrees SINUS RHYTHM WITH OCCASIONAL PREMATURE VENTRICULAR COMPLEXES POSSIBLE LEFT ATRIAL ENLARGEMENT CANNOT RULE OUT ANTERIOR INFARCT , AGE UNDETERMINED T WAVE ABNORMALITY, CONSIDER LATERAL ISCHEMIA ABNORMAL ECG No Stemi Confirmed by GABBY WOOTEN DO ([id number]) on 03/12/2025 9:22:56 PM NAME : CAROLINA GUTIERREZ PID : [id number] : 1960 Gender : Female Race : ORD : Procedure Date : Mar 12 2025 20:26:52 Edit Date : Mar 12 2025 21:22:58 Diagnosis: SINUS RHYTHM WITH OCCASIONAL PREMATURE VENTRICULAR COMPLEXES POSSIBLE LEFT ATRIAL ENLARGEMENT CANNOT RULE OUT ANTERIOR INFARCT , AGE UNDETERMINED T WAVE ABNORMALITY, CONSIDER LATERAL ISCHEMIA ABNORMAL ECG No Stemi Confirmed by GABBY WOOTEN DO ([id number]) on 03/12/2025 9:22:56 PM Test Reason : Location : 1 : ER ED Overread By : GABBY WOOTEN DO Edited By : GABBY WOOTEN DO Referred By : , Acquired by : kandi, Kelby [facility] HIGH SENSITIVITY TROPONIN T (INITIAL)on 03-12-2025 Troponin T.cardiac High sensitivity method [Mass/Vol] 8 ng/L Normal <12 [facility] Comment on above: Order Comment: Speci men Type: BLOOD SPECIMEN Ordering Facility: [facility] Address: [address] [place], [place] [address] Performed By: #### L [id number], K1 #### [facility] CLIA [id number] [address] [place] [address] [place] HIGH SENSITIVITY TROPONIN T (SECOND)on 03-12-2025 Troponin T.cardiac High sensitivity method [Mass/Vol] 10 ng/L Normal <12 [facility] Comment on above: Order Comment: Speci men Type: BLOOD SPECIMEN Ordering Facility: [facility] Address: [address] [place] [address] Performed By: #### L [id number] #### [facility] CLIA [id number] [address] [place] [address] [place] Magnesium SerPl-mCncon 03-12 Magnesium [Mass/Vol] 1.9 mg/dL Normal 1.7-2.3 [facility] Comment on above: Order Comment: Speci men Type: BLOOD SPECIMEN Ordering Facility: [facility] Address: [address] [place], [place] [address] Performed By: #### 1 9123-9, 81034-2 #### [facility] CLIA [id number] [address] [place] POTASSIUMon 03-12-2025 Potassium [Moles/Vol] 4.0 mmol/L Normal 3.7-5.1 [facility] Comment on above: Order Comment: Speci men Type: BLOOD SPECIMEN Ordering Facility: [facility] Address: [address] [place] [address] Performed By: #### L [id number], K1 #### [facility] CLIA [id number] [address] [place] [address] [place] XR KNEE 4V [...] medial compartment arthroplasty. 2. Mild patellofemoral arthrosis. Architectural Administrative Assistant: DEBBIE Transcribe Date/Time: Mar 12 2025 10:30P Dictated by : ANTONIO VELASQUEZ MD This examination was interpreted and the report reviewed and electronically signed by: ANTONIO VELASQUEZ MD on Mar 12 2025 10:33PM EST [id number] [facility] Heart and Vascular Office/Cl inic Noteon 02-22-2025 [...] At last visit, I saw patient at [facility] time she was continued on current medication. [...] get l (more content not included)... Normal [facility] Comment on above: Result Comment: Elec tronically Signed By: Antoinette SAMANO, Oswald Manning\.br\Date and Time Signed: 02/22/25 09:03 EDT Provider Letteron 02-19-2025 Provider Letter Santino Moran MD [facility] [place] [address] Re: Carolina Gutierrez Date of Visit: 02/08/2025 Dear Santino Moran MD, [facility] Orthopedics and Sports Medicine [address] [place] [address], [phone] Date: 02/19/2025 16:21:24 Thank you for referring Carolina Gutierrez who was seen on 01/08/2025 11:09:58. Please see attached note for further details and please call with any questions or concerns. _ Sincerely, CHI Rawls Providers: The following document(s) were included in the letter: February 08, 2025 16:19:00 EDT - (02/08/2025) Office Visit Note CAA Kelby [facility] Noel 02-15-2025 CNOV Office Visit (JULI) MATTCAROLINA ([id number]) 1960 F Date Time Provider Department 02/15/25 [...] touching your toes, sit-ups, using row machine intermediate pain recommendations per primary care provider/pain clinic Increase water prior and 1week after prolia Prolia every 6months, last one ~summer 2021, Next bone mineral density after 11/14/25 Nonfasting labs as scheduled Thank you. 12/03/24 High alkaline phosphatase 131, esr 26;low hgb 11.2;normal rest of cbc, cmp, crp <0.3, vitamin D 68.1;negative hepatitis panel, quantiferon tb; [place] 11/15/23 osteopenia (was osteoporosis) L1-L4 1.238g/cm2, tscore [...] Still working. Due for cruise in 03/2025 [facility]. 100% improvement from rinvoq. Walking for exercise. Legs/feet swelling in AM, better with lasix. Chronic current pain in both hands, knees, ankles. Worse in rainy weather or wintertime. Reports pain /10. Has minimal AM stiffness. Feels safe at home. Has enough food, supplies and medications. Overall mil (more content not included)... Normal [facility] 02-11-2025 L Specimen: [id number] Received: 02/12/25 Status: DYLON Gamboa Num: [id number] Spec Type: Surgical Subm Dr: Ze Francois MD Tissues: A Skin-Other than Cyst, tag, debridement or plastic repair (RIGHT LOWER LEG) Procedures: Emily DESIR/Micro L4 Age/ Patient Sex Location Account Attending Physician Carolina Gutierrez 64/F [place] [id number] Ze Francois MD SPEC NUM: [id number] RECD: 02/12/25 STATUS: DYLON GAMBOA NUM: [id number] ZOEY: 02/11/[address]: Ze Francois MD [...] the specimen submitted in A2?A3. (3, ns, [id number] A) Microscopic Description Microscopic examination was completed. CPT Codes 36619 Specimen: [id number] Received: 02/12/25 Status: DYLON Gamboa Num: [id number] Spec Type: Surgical Subm Dr: Ze Francois MD Tissues: A Skin-Other than Cyst, tag, debridement or plastic repair (RIGHT LOWER LEG) Procedures: DEVANDebora, Gross/Micro L4 Patient: Carolina Gutierrez [id number] (Continued) Signed (signature on file) Ruthie Rose JR, MD 02/15/25 1333 Normal [facility] Podiatry Office/Clinic Noteo n [...] management, she uses a compounding cream and rfkj-yyc-xjdmglc nerve vitamins, which she finds helpful, as [...] left foot (more content not included)... Normal [facility] XR Ankle 2 Views Left 01-29 [...] Electronically Signed in Other Vendor System) Normal [facility] XR Foot 3 Views Lefton 02-08 [...] Electronically Signed in Other Vendor System) Normal [facility] No Panel InformationOrdered By: Ze Francois on 12-23-2024 Miscellaneous Pathology Test See comment [facility] Comment on above: See report. Scanned copy available in EMR. Pathology Request for Lab Co rpon 12-23-2024 Pathology Request for Lab Sheyla Normal [facility] Comment on above: Order Comment: SKIN SPECIMEN Result Comment: See report. Scanned copy available in EMR. PERFORMED BY: [address] [place] [address] PATHOLOGIST BRAZING MACHINE OPERATOR AUTOMATIC HENRRY PATEL M.D. Performed By: #### P ATH TO [facility] #### [address] 25([place])D3 SerPl-mCncon 2024 25-hydroxyvitamin D3 [Mass/Vol] 68.1 ng/mL Normal 31.0-80.0 [facility] Comment on above: Order Comment: Speci men Type: BLOOD SPECIMEN Ordering Facility: [facility] Address: [address] [place] [address] Result Comment: Clas sification of 25 [place] Vitamin D status: Deficiency/Insufficiency: < or = 30 ng/ml. Sufficiency/Optimal Levels: 31-80 ng/mL Toxicity: > 100 ng/mL. Test performed by chemiluminescent immunoassay. Performed By: #### 4 537-7 #### [facility] CLIA [id number] [address] [place] [address] [place] [address] [place] BLOOD TB SCREENon 12-03-2024 M. tuberculosis tuberculin stim IFN-g Ql (Bld) Negative Normal [facility] Comment on above: Order Comment: Speci men Type: BLOOD SPECIMEN Ordering Facility: [facility] Address: [address] [place] [address] Performed By: #### 4 537-7 #### [facility] CLIA [id number] [address] [place] [address] [place] MITOGEN MINUS NIL 1.10 IU/mL Normal >=0.50 [facility] Comment on above: Order Comment: Speci men Type: BLOOD SPECIMEN Ordering Facility: [facility] Address: [address] [place] [address] Performed By: #### 4 537-7 #### [facility] CLIA [id number] [address] [place] [address] [place] [facility] TB GAMMA INTERPRETATION Infection with M. tuberculosis complex is unlikely. If latent tuberculosis infection is highly suspected, a negative result does not rule out the infection. Specimens from immunocompromised patients and those <5 years of age may show false negative results. In case of a contact investigation, please repeat 8-12 weeks after a known exposure. Normal [facility] Comment on above: Order Comment: Speci men Type: BLOOD SPECIMEN Ordering Facility: [facility] Address: [address] [place] [address] Performed By: #### 4 537-7 #### [facility] CLIA [id number] [address] [place] [address] [facility] [place] TB NIL 0.07 IU/mL Normal <=8.00 [facility] Comment on above: Order Comment: Speci men Type: BLOOD SPECIMEN Ordering Facility: [facility] Address: [address] [place] [address] Performed By: #### 4 537-7 #### [facility] CLIA [id number] [address] [place] [address] [place] TB1 AG MINUS NIL 0.00 IU/mL Normal <0.35 [facility] Comment on above: Order Comment: Speci men Type: BLOOD SPECIMEN Ordering Facility: [facility] Address: [address] [place] [address] Performed By: #### 4 537-7 #### [facility] CLIA [id number] [address] [place] [address] [place] TB2 AG MINUS NIL <0.00 Normal <0.35 [facility] Comment on above: Order Comment: Speci men Type: BLOOD SPECIMEN Ordering Facility: [facility] Address: [address] [place] [address] Performed By: #### 4 537-7 #### [facility] CLIA [id number] [address] [place] [address] [place] CBC panel Auto (Bld)on 12-03 Erythrocyte distribution width (RBC) [Ratio] 14.7 % Normal 11.5-15.0 [facility] Comment on above: Order Comment: Speci men Type: BLOOD SPECIMEN Ordering Facility: [facility] Address: [address] [place] [address] Performed By: #### 2 4321-2 #### [facility] CLIA [id number] [address] [place] [address] [place] Hematocrit (Bld) [Volume fraction] 35.1 % Low 36.0-46.0 [facility] Comment on above: Order Comment: Speci men Type: BLOOD SPECIMEN Ordering Facility: [facility] Address: [address] [place] [address] Performed By: #### 2 4321-2 #### [facility] CLIA [id number] [address] [place] [address] [place] Hemoglobin (Bld) [Mass/Vol] 11.2 g/dL Low 11.5-15.5 [facility] Comment on above: Order Comment: Speci men Type: BLOOD SPECIMEN Ordering Facility: [facility] Address: [address] [place] [address] Performed By: #### 2 4321-2 #### [facility] CLIA [id number] [address] [place] [address] [place] MCH (RBC) [Entitic mass] 28.4 pg Normal 26.0-34.0 [facility] Comment on above: Order Comment: Speci men Type: BLOOD SPECIMEN Ordering Facility: [facility] Address: [address] [place] [address] Performed By: #### 2 4321-2 #### [facility] CLIA [id number] [address] [place] [address] [place] MCHC (RBC) [Mass/Vol] 31.9 g/dL Normal 30.5-36.0 [facility] Comment on above: Order Comment: Speci men Type: BLOOD SPECIMEN Ordering Facility: [facility] Address: [address] [place] [address] Performed By: #### 2 4321-2 #### [facility] [facility] CLIA [id number] [address] [place] [address] [place] MCV (RBC) [Entitic vol] 88.9 fL Normal 80.0-100.0 [facility] Comment on above: Order Comment: Speci men Type: BLOOD SPECIMEN Ordering Facility: [facility] Address: [address] [place] [address] Performed By: #### 2 4321-2 #### [facility] CLIA [id number] [address] [place] [address] [place] Nucleated RBC (Bld) [#/Vol] 10*3/uL Normal <0.01 [facility] Comment on above: Order Comment: Speci men Type: BLOOD SPECIMEN Ordering Facility: [facility] Address: [address] [place] [address] Performed By: #### 2 4321-2 #### [facility] CLIA [id number] [address] [place] [address] [place] Platelet mean volume (Bld) [Entitic vol] 9.1 fL Normal 9.0-12.7 [facility] Comment on above: Order Comment: Speci men Type: BLOOD SPECIMEN Ordering Facility: [facility] Address: [address] [place] [address] Performed By: #### 2 4321-2 #### [facility] CLIA [id number] [address] [place] [address] [place] Platelets (Bld) [#/Vol] 311 10*3/uL Normal 150-400 [facility] Comment on above: Order Comment: Speci men Type: BLOOD SPECIMEN Ordering Facility: [facility] Address: [address] [place] [address] Performed By: #### 2 4321-2 #### [facility] CLIA [id number] [address] [place] [address] [place] RBC (Bld) [#/Vol] 3.95 10*6/uL Normal 3.90-5.20 [facility] Comment on above: Order Comment: Speci men Type: BLOOD SPECIMEN Ordering Facility: [facility] Address: [address] [place] [address] Performed By: #### 2 4321-2 #### [facility] CLIA [id number] [address] [place] [address] [place] WBC (Bld) [#/Vol] 8.68 10*3/uL Normal 3.70-11.00 [facility] Comment on above: Order Comment: Speci men Type: BLOOD SPECIMEN Ordering Facility: [facility] Address: [address] [place] [address] Performed By: #### 2 4321-2 #### [facility] CLIA [id number] [address] [place] [address] [place] CRP SerPl-mCncon 12-03-2024 CRP [Mass/Vol] mg/L Normal <0.9 [facility] Comment on above: Order Comment: Speci men Type: BLOOD SPECIMENOrdering Facility: [facility] Address: [address] [place] [address] Performed By: #### 1 988-5 ####[facility] [id number] [place] [address] [place] Comprehensive metabolic 2000 panelon 12-03-2024 Albumin [Mass/Vol] 3.9 g/dL Normal 3.9-4.9 [facility] Comment on above: Order Comment: Speci men Type: BLOOD SPECIMEN Ordering Facility: [facility] Address: [address] [place] [address] Performed By: #### 4 537-7 #### [facility] CLIA [id number] [address] [place] [address] [place] ALP [Catalytic activity/Vol] 131 U/L High 34-123 [facility] Comment on above: Order Comment: Speci men Type: BLOOD SPECIMEN Ordering Facility: [facility] Address: [address] [place] [address] Performed By: #### 4 537-7 #### [facility] CLIA [id number] [address] [place] [address] [place] ALT [Catalytic activity/Vol] 15 U/L Normal 7-38 [facility] Comment on above: Order Comment: Speci men Type: BLOOD SPECIMEN Ordering Facility: [facility] Address: [address] [place] [address] Performed By: #### 4 537-7 #### [facility] CLIA [id number] [address] [place], [place] [address] [place] Anion gap [Moles/Vol] 14 mmol/L Normal 8-15 [facility] Comment on above: Order Comment: Speci men Type: BLOOD SPECIMEN Ordering Facility: [facility] Address: [address] [place] [address] Performed By: #### 4 537-7 #### [facility] CLIA [id number] [address] [place] [address] [place] AST [Catalytic activity/Vol] 25 U/L Normal 13-35 [facility] Comment on above: Order Comment: Speci men Type: BLOOD SPECIMEN Ordering Facility: [facility] Address: [address] [place] [address] Performed By: #### 4 537-7 #### [facility] CLIA [id number] [address] [place] [address] [place] Bilirubin [Mass/Vol] 0.7 mg/dL Normal 0.2-1.3 [facility] Comment on above: Order Comment: Speci men Type: BLOOD SPECIMEN Ordering Facility: [facility] Address: [address] [place] [address] Performed By: #### 4 537-7 #### [facility] CLIA [id number] [address] [place] [address] [place] Calcium [Mass/Vol] 10.2 mg/dL Normal 8.5-10.2 [facility] Comment on above: Order Comment: Speci men Type: BLOOD SPECIMEN Ordering Facility: [facility] Address: [address] [place] [address] Performed By: #### 4 537-7 #### [facility] CLIA [id number] [address] [place] [address] [place] Chloride [Moles/Vol] 102 mmol/L Normal 98-107 [facility] Comment on above: Order Comment: Speci men Type: BLOOD SPECIMEN Ordering Facility: [facility] Address: [address] [place] [address] Performed By: #### 4 537-7 #### [facility] CLIA [id number] [address] [place] [address] [place] CO2 [Moles/Vol] 24 mmol/L Normal 22-30 [facility] Comment on above: Order Comment: Speci men Type: BLOOD SPECIMEN Ordering Facility: [facility] Address: [address] [place] [address] Performed By: #### 4 537-7 #### [facility] CLIA [id number] [address] [place] [address] [place] [facility] Creatinine [Mass/Vol] 0.75 mg/dL Normal 0.58-0.96 [facility] Comment on above: Order Comment: Lorene montano Type: BLOOD SPECIMEN Ordering Facility: [facility] Address: [address] [place] [address] Performed By: #### 4 537-7 #### [facility] CLIA [id number] [address] [place] [address] [place] Creatinine and Glomerular filtration rate.predicted panel (S/P/Bld) 88 mL/min/1.73m??? Normal >=60 [facility] Comment on above: Order Comment: Lorene montano Type: BLOOD SPECIMEN Ordering Facility: [facility] Address: [address] [place] [address] Result Comment: Katlyn mated Glomerular Filtration Rate [...] GFR. Performed By: #### 4 537-7 #### [facility] CLIA [id number] [address] [place] [address] [place] Glucose [Mass/Vol] 91 mg/dL Normal 74-99 [facility] Comment on above: Order Comment: Lorene charmaine Type: BLOOD SPECIMEN Ordering Facility: [facility] Address: [address] [place] [address] Result Comment: The [place] Diabetes Association (ADA) provides guidance for cutoff [...] Standards of Medical Care in Diabetes 2016, [place] [employer]. Diabetes Care. 2016.39(Suppl 1). Performed By: #### 4 537-7 #### [facility] CLIA [id number] [address] [place] [address] [place] Potassium [Moles/Vol] 4.3 mmol/L Normal 3.7-5.1 [facility] Comment on above: Order Comment: Lorene montano Type: BLOOD SPECIMEN Ordering Facility: [facility] Address: [address] [place] [address] Performed By: #### 4 537-7 #### [facility] CLIA [id number] [address] [place] [address] [place] Protein [Mass/Vol] 6.8 g/dL Normal 6.3-8.0 [facility] Comment on above: Order Comment: Lorene montano Type: BLOOD SPECIMEN Ordering Facility: [facility] Address: [address] [place] [address] Performed By: #### 4 537-7 #### [facility] CLIA [id number] [address] [place] [address] [place] Sodium [Moles/Vol] 140 mmol/L Normal 136-144 [facility] Comment on above: Order Comment: Lorene montano Type: BLOOD SPECIMEN Ordering Facility: [facility] Address: [address] [place] [address] Performed By: #### 4 537-7 #### [facility] CLIA [id number] [address] [place] [address] [place] Urea nitrogen [Mass/Vol] 17 mg/dL Normal 7-21 [facility] Comment on above: Order Comment: Speci men Type: BLOOD SPECIMEN Ordering Facility: [facility] Address: [address] [place] [address] Performed By: #### 4 537-7 #### [facility] CLIA [id number] [address] [place] [address] [place] ESR Westergren method (Bld) [Velocity]on 12-03-2024 ESR (Bld) [Velocity] 26 mm/h High 0-20 [facility] Comment on above: Order Comment: Speci men Type: BLOOD SPECIMEN Ordering Facility: [facility] Address: [address] [place] [address] Performed By: #### 4 537-7 #### [facility] CLIA [id number] [address] [place] [address] [place] HBV core Ab Ser Qlon 025 HBV core Ab Ql (S) Negative Normal Negative [facility] Comment on above: Order Comment: Speci men Type: BLOOD SPECIMEN Ordering Facility: [facility] Address: [address] [place] [address] Result Comment: No e vidence of current or past infection with Hepatitis B virus. Should recent infection be suspected, repeat testing may be considered 3-4 weeks after this draw. Performed By: #### 4 537-7 #### [facility] CLIA [id number] [address] [place] [address] [place] HBV surface Ab Ql (S)on HBV surface Ab Qn (S) <8.00 Normal [facility] Comment on above: Order Comment: Trinidad[place] men Type: BLOOD SPECIMEN Ordering Facility: [facility] Address: [address] [place] [address] Result Comment: <8 m IU/mL: No serological evidence of immunity to Hepatitis B Virus. >/= 8 to <12 mIU/mL: No serological evidence of immunity to Hepatitis B Virus. >/= 12 mIU/mL: Consistent with serological evidence of immunity to Hepatitis B Virus. Performed By: #### 4 537-7 #### [facility] CLIA [id number] [address] [place] [address] [place] HBV surface Ab Ser Qlon HBV surface Ab Ql (S) Negative Normal [facility] Comment on above: Order Comment: Speci men Type: BLOOD SPECIMEN Ordering Facility: [facility] Address: [address] [place] [address] Result Comment: No s erological evidence of immunity to Hepatitis B Virus. Performed By: #### 4 537-7 #### [facility] CLIA [id number] [address] [place] [address] [place] HBV surface Ag Ser Qlon HBV surface Ag Ql (S) Negative Normal Negative [facility] Comment on above: Order Comment: Speci men Type: BLOOD SPECIMEN Ordering Facility: [facility] Address: [address] [place] [address] Performed By: #### 4 537-7 #### [facility] CLIA [id number] [address] [place] [address] HCV Ab Ser Qlon 12-03-2024 HCV Ab Ql (S) Negative Normal Negative [facility] Comment on above: Order Comment: Speci men Type: BLOOD SPECIMEN Ordering Facility: [facility] Address: [address] [place] [address] Result Comment: The result suggests no evidence of infection with Hepatitis C virus. Should recent infection be suspected, repeat testing may be considered 4-6 weeks after this draw. Performed By: #### 2 4321-2 #### [facility] CLIA [id number] [address] [place] [address] [place] X-ray reportOrdered By: Vicente Lopez on 11-20-2024 Study report [facility] [address] [place] [address] XRay Report Signed Patient: Alt[place]ina A MR#: [id number] : 1960 Acct:[id number] Age/Sex: 64 / F ADM Date: 5 Loc: XDUCLY Room: Type: [facility] CLI Attending Dr: Siomara Moreland [employer] Copies to: Siomara Moreland APRN~ Ordering Provider: [...] Lopez M.D. 11/20/2024 5:43 PM Dictation Location: [place] [address] Transcribed By: [facility] 11/20/241742 Dictated By: Jose A Lopez DO 11/20/241741 Signed By: 11/20/24 1743 [facility] XR knee LT 4V*on 11-20-2024 XR knee LT 4V* [facility] [place] [address] XRay Report Signed Patient: Carolina Gutierrez MR#: [id number] : 1960 Acct:[id number] Age/Sex: 64 / F ADM Date: 11/20/24 Loc: XDUC Room: Type: [facility] CLI Attending Dr: Siomara Moreland [employer] Copies to: Siomara Moreland APRN Ordering Provider: [...] Lopez M.D. 11/20/2024 5:43 PM Dictation Location: [facility]--20 Transcribed By: [facility] 11/20/241742 Dictated By: Jose A Lopez DO 11/20/241741 Signed By: 11/20/241742 Normal [facility] Heart and Vascular Office/Cl [...] is hel (more content not included)... Normal [facility] Comment on above: Result Comment: Elec tronically Signed By: Antoinette SAMANO, Oswald Manning\.dusty\Date and Time Signed: 11/11/24 16:01 EDT Leonardo 10-28-2024 L Specimen: [id number] Received: 10/29/24 Status: DYLON Gamboa Num: [id number] Spec Type: Surgical Subm Dr: Ze Francois MD Tissues: A Skin-Other than Cyst, tag, debridement or plastic repair (LEFT LOWER LEG) Procedures: HE/3, Gross/Micro L4 Age/ Patient Sex Location Account Attending Physician Carolina Gutierrez 63/F [place] [id number] Ze Francois MD SPEC NUM: [id number] RECD: 10/29/24 STATUS: DYLON GAMBOA NUM: [id number] ZOEY: 10/28/[address] [facility] [address]: Ze Francois MD ENTERED: 10/29/[address]: [place] TYPE: Surgical DEPT: S ENTERED BY: [id number] RECV BY: [id number] ORDERED: HE/3, Gross/Micro L4 ORDERED: HE/3, Gross/Micro [...] the specimen submitted in A2?A3. (2, ns, [id number] A)ENRIQUETA Specimen: [id number] Received: 10/29/24 Status: DYLON Cooper Num: [id number] Spec Type: Surgical Subm Dr: Ze Francois MD Tissues: A Skin-Other than Cyst, tag, debridement or plastic repair (LEFT LOWER LEG) Procedures: HE/3, Gross/Micro L4 Patient: Carolina Gutierrez [id number] (Continued) Specimen: [id number] Received: 10/29/24 (Continued) Signed (signature on file) Judah Cochran Jr., MD 11/02/24 9378 Specimen: Received: 10/29/24 Status: DYLON Gamboa Num: [id number] Spec Type: Surgical Subm Dr: Ze Francois MD Tissues: A Skin-Other than Cyst, tag, debridement or plastic repair (LEFT LOWER LEG) Procedures: HE/3, Gross/Micro L4 Patient: Carolina Gutierrez [id number] (Continued) Specimen: Received: 10/29/24 (Continued) CPT Codes 08448 Specimen: [id number] Received: 10/29/24 Status: DYLON Gamboa Num: [id number] Spec Type: Surgical Subm Dr: Ze Francois MD Tissues: A Skin-Other than Cyst, tag, debridement or plastic repair (LEFT LOWER LEG) Procedures: HE/3, Gross/Micro L4 Patient: Carolina Gutierrez [id number] (Continued) Signed (signature on file) Judah Cochran Jr., MD 11/02/24 0598 Normal [facility] Heart and Vascular Office/Cl [...] visit b (more content not included)... Normal [facility] Comment on above: Result Comment: Elec tronically Signed By: Antoinette SAMANO, Oswald Camacho\Date and Time Signed: 09/28/24 14:13 EDT Leonardo 09-16-2024 L Specimen: [id number] Received: 09/16/24 Status: DYLON Gamboa Num: [id number] Spec Type: Surgical Subm Dr: Ze Francois MD Tissues: A Skin-Other than Cyst, tag, debridement or plastic repair (RT LOWER LEG) B Skin-Other than Cyst, tag, debridement or plastic repair (LEFT LOWER LEG) Procedures: Emily ROCHE/Ambreen L4/2 Age/ Patient Sex Location Account Attending Physician Carolina Gutierrez 63/F MALORIE [id number] Ze Francois MD SPEC NUM: [id number] RECD: 09/16/24 STATUS: DYLON SADLERNaif NUM: [id number] ZOEY: 09/16/[address]: Ze Francois MD ENTERED: 09/16/[address] [facility] [address]: SPEC TYPE: Surgical DEPT: S ENTERED BY: [id number] RECV BY: [id number] ORDERED: HE/4, Gross/Micro L4/2 ORDERED: HE/4, Gross/Micro [...] can be considered as adequate excision Specimen: [id number] Received: 09/16/24 Status: DYLON Cooper Num: [id number] Spec Type: Surgical Subm Dr: Ze Francois MD Tissues: A Skin-Other than Cyst, tag, debridement or plastic repair (RT LOWER LEG) B Skin-Other than Cyst, tag, debridement or plastic repair (LEFT LOWER LEG) Procedures: Emily ROCHE/Ambreen L4/2 Patient: Carolina Gutierrez [id number] (Continued) Specimen: [id number] Received: 09/16/24 (Continued) Signed (signature on file) Kavin Crow MD 09/17/24 1404 Specimen: [id number] Received: 09/16/24 Status: DYLON Gamboa Num: [id number] Spec Type: Surgical Subm Dr: Ze Francois MD Tissues: A Skin-Other than Cyst, tag, debridement or plastic repair (RT LOWER LEG) B Skin-Other than Cyst, tag, debridement or plastic repair (LEFT LOWER LEG) Procedures: Emily ROCHE/Ambreen L4/2 Patient: Carolina Gutierrez [id number] (Continued) Specimen: [id number] Received: 09/16/24-1303 (Continued) Clinical Information Part A: [...] the specimen submitted in A2?A3. (3, ns, [id number] A) Part B is received in formalin [...] closest (more content not included)... Normal [facility] Ambulatory Visit Summaryon 0 [...] Fluid level (more content not included)... Normal [facility] Family Medicine Office/Clini c Noteon 08-23-2024 [...] x 5 days. Patient can continue with yaxf-jdz-bignuzv medications, fluids, rest. Will give work note for Saturday and Saturday and she can go back on . Ordered: doxycycline, 100 mg = 1 tab(s), Oral, q12hr, X 7 day(s), # 14 tab(s), Refills(s) 0, Pharmacy: [facility]/pharmacy #6177, 142, cm, 08/23/24 14:39:00 EST, Height/Length Dosing, 79.9, kg, 08/23/24 14:39:00 EST, Weight Dosing ondansetron, 4 mg = 1 tab(s), Oral, q8hr, PRN Nausea/Vomiting, # 30 tab(s), Refills(s) 0, [facility] 142, cm, 08/23/24 14:39:00 EST, Height/Length Dosing, 79.9, kg, 08/23/24 14:39:00 EST, Weight Dosing predniSONE, 40 mg = 2 tab(s), Oral, Daily, X 5 day(s), # 10 tab(s), Refills(s) 0, [facility] 142, cm, 08/23/24 14:39:00 EST, Height/Length Dosing, 79.9, kg, 08/23/24 14:39:00 EST, Weight Dosing 2. Cough (R05.9: Cough, unspecified) Ordered: Influenza Type A&B POC 49659 Rapid COVID POC 02127 3. Shortness of breath (R06.02: Shortness of breath) Ordered: Influenza Type A&B POC 92559 Rapid COVID POC 05242 Nausea (R11.0: Nausea) Ordered: ondansetron, 4 mg = 1 tab(s), Oral, q8hr, PRN Nausea/Vomiting, # 30 tab(s), Refills(s) 0, [facility], 142, cm, 08/23/24 14:39:00 EST, Height/Length Dosing, 79.9, kg, 08/23/24 14:39:00 EST, Weight Dosing Portions of this record may have been created with voice recognition artificial intelligence software, specifically Soukboard, mohchi and or Trenergi. Substitutions may have occurred due to the [...] behind tympan (more content not included)... Normal [facility] Comment on above: Result Comment: Elec tronically Signed By: Antoinette SAMANO, Oswald Manning\.br\Date and Time Signed: 08/23/24 14:59 EST Provider Letteron 08-23-2024 Provider Letter Provider Letter August 23, 2024 CAROLINA GUTIERREZ [address] [id number] : 1960 To Whom It May Concern, Please excuse above patient from work. Date of Illness: From: 08/25/2024 To: 08/26/2024 May Return to Work On:08/27/2024 Sincerely, [facility] [address] [place] [address], [place] [address] [facility] Ambulatory Visit Summaryon 0 08-09-2024 Ambulatory Visit [...] Oral candidosis Duration: 5 Days Pickup at [facility]/pharmacy #6177 New nystatin (nystatin 100,000 units/ mL Oral Susp) 6 Milliliter By Mouth Every 6 hours Influenza A Body aches Oral candidosis Duration: 7 Days retain in mouth as long as possible before swallowing Pickup at [facility]/pharmacy #6177 New oseltamivir (Tamiflu 75 mg Cap) 1 Capsules By Mouth 2 times a day Influenza A Body aches Oral candidosis Duration: 5 Days Pickup at [facility]/pharmacy #6177 Unchanged acetaminophen (Tylenol) 1,000 Milligram By [...] levothyroxine (levothyr (more content not included)... Normal [facility] Family [facility] Office/Clini c Noteon 08-09-2024 [...] with voice recognition software. Occasional wrong-word or ???mrelg-u-sgsj??? substitutions may have occurred due to the [...] for 5 day(s), 200 mL, Refill(s) 0, [facility]/pharmacy #6177, 142, cm, 08/09/24 11:57:00 EST, Height/Length Dosing, 80.4, kg, 08/09/24 11:57:00 EST, Weight Dosing nystatin, 600,000 unit(s) = 6 mL, Oral, q6hr, retain in mouth as long as possible before swallowing, X 7 day(s), # 168 mL, Refills(s) 0, Pharmacy: [facility]/pharmacy #6177, 142, cm, 08/09/24 11:57:00 EST, Height/Length Dosing, 80.4, kg, 08/09/24 11:57:00 EST, Weight... oseltamivir, 75 mg = 1 cap(s), Oral, BID, X 5 day(s), # 10 cap(s), Refills(s) 0, Pharmacy: [facility]/pharmacy #6177, 142, cm, 08/09/24 11:57:00 EST, Height/Length Dosing, 80.4, kg, 08/09/24 11:57:00 EST, Weight Dosing 2. Body aches (R52: Pain, unspecified) See #2 tyelnol and ibuprofen OTC. Ordered: brompheniramine/dext romethorphan/PSE, 10 mL, Oral, QID for 5 day(s), 200 mL, Refill(s) 0, [facility]/pharmacy #6177, 142, cm, 08/09/24 11:57:00 EST, Height/Length Dosing, 80.4, kg, 08/09/24 11:57:00 EST, Weight Dosing nystatin, 600,000 unit(s) = 6 mL, Oral, q6hr, retain in mouth as long as possible before swallowing, X 7 day(s), # 1 (more content not included)... Normal [facility] Comment on above: Result Comment: Elec tronically Signed By: Dolores BERG, Yecenia\.br\Date and Time Signed: 08/09/24 15:59 EST Renea 07-08-2024 [facility] Telephone (RADTSA) CAROLINA GUTIERREZ ([id number]) 1960 F Date Time Provider Department 07/08/24 [...] fluticasone (FLONASE) 50 mcg/actuation nasal spray 1 [place] daily at bedtime. in each nostril. - [...] Encounter Status: (more content not included)... Normal [facility] Renea 06-29-2024 [facility] Telephone (INFDMN) CAROLINA GUTIERREZ ([id number]) 1960 F Date Time Provider Department 06/29/24 ANNA COFFMAN INFJOSETTE During your visit today, we recorded the following information about you: Anna Coffman RN 06/29/2024 9:41 AM Anaid Moore from [facility] called to inquire about drawing a Vanco level today since stop date is today. If pt does not need vanco level the nurse would go see pt after last dose of vanco today and pull PICC line. After confirming with Dr. Christianson, Vanco does not need to be drawn and nurse may remove PICC line.I returned call to Teresa at [phone] and let her know the plan. Aleksey Adm Asst I Kathy 06/29/2024 12:10 PM Signed Notified [facility] at [phone], verbal orders given to Acacia. Kathy Ryder Adm Asst I Allergies As of Date: 06/29/2024 Noted Allergy Reaction KEFLEX (CEPHALEXIN) 10/18/2004 4 - Hives PENICILLINS 01/05/2004 4 - Hives ELIQUIS (APIXABAN) 04/14/2024 4 - Hives TREE NUTS 04/14/2024 10 - Anaphylaxis Date Reviewed: 06/15/2024 Reviewed by: Amy Slade, RN - Fully Assessed Reason for Visit: CoPat Stop [9974] Prescriptions as of 06/29/2024 - aspirin, enteric [...] fluticasone (FLONASE) 50 mcg/actuation nasal spray 1 [place] daily at bedtime. in each nostril. - [...] S/P should (more content not included)... Normal [facility] CBC AND AUTO DIFFon 1224-20 24 ABSOLUTE BASOPHIL 0.0 X10E9/L Normal 0.0-0.2 [facility] Comment on above: Performed By: #### 1 988-5, MARIONETTE PERFORMER, 4092-3, CBCA #### [facility] ([id number]) [address] [place] [address] 12576 ABSOLUTE NEUTROPHIL 10.6 X10E9/L High 1.5-6.6 [facility] Comment on above: Performed By: #### 1 988-5, MARIONETTE PERFORMER, 4092-3, CBCA #### [facility] ([id number]) [address] [place] [address] 65152 Basophils/100 WBC (Bld) 0.0 % Normal [facility] Comment on above: Performed By: #### 1 988-5, MARIONETTE PERFORMER, 4091-08, CBCA #### [facility] ([id number]) [address] [place] [address] 32788 Eosinophils (Bld) [#/Vol] 0.0 10*3/uL Normal 0.0-0.4 [facility] Comment on above: Performed By: #### 1 988-5, MARIONETTE PERFORMER, 4091-08, CBCA #### [facility] ([id number]) [address] [place] [address] 39774 Eosinophils/100 WBC (Bld) 0.0 % Normal [facility] Comment on above: Performed By: #### 1 988-5, MARIONETTE PERFORMER, 4091-08, CBCA #### [facility] ([id number]) [address] [place] [address] 85905 Erythrocyte distribution width (RBC) [Ratio] 17.6 % High 11.5-15.0 [facility] Comment on above: Performed By: #### 1 988-5, MARIONETTE PERFORMER, 4091-08, CBCA #### [facility] ([id number]) [address] [place] [address] 12423 Hematocrit (Bld) [Volume fraction] 30.9 % Low 35-47 [facility] Comment on above: Performed By: #### 1 988-5, MARIONETTE PERFORMER, 4091-08, CBCA #### [facility] ([id number]) [address] [place] [address] 22143 Hemoglobin (Bld) [Mass/Vol] 10.1 g/dL Low 11.7-15.5 [facility] Comment on above: Performed By: #### 1 988-5, MARIONETTE PERFORMER, 4091-08, CBCA #### [facility] ([id number]) [address] [place] [address] 42801 Lymphocytes (Bld) [#/Vol] 0.9 10*3/uL Low 1.0-3.5 [facility] Comment on above: Performed By: #### 1 988-5, MARIONETTE PERFORMER, 4091-3, CBCA #### [facility] ([id number]) [address] [place] [address] 72522 Lymphocytes/100 WBC (Bld) 7.5 % Normal [facility] Comment on above: Performed By: #### 1 988-5, MARIONETTE PERFORMER, 4091-, CBCA #### [facility] ([id number]) [address] [place] [address] 21656 MCH (RBC) [Entitic mass] 27.3 pg Normal 27-34 [facility] Comment on above: Performed By: #### 1 988-5, MARIONETTE PERFORMER, 4091-08, CBCA #### [facility] ([id number]) [address] [place] [address] 98738 MCHC (RBC) [Mass/Vol] 32.7 g/dL Normal 32-36 [facility] Comment on above: Performed By: #### 1 988-5, MARIONETTE PERFORMER, 4091-08, CBCA #### [facility] ([id number]) [address] [place] [address] 78399 MCV (RBC) [Entitic vol] 83 fL Normal 80-100 [facility] Comment on above: Performed By: #### 1 988-5, MARIONETTE PERFORMER, 4091-08, CBCA #### [facility] ([id number]) [address] [place] [address] 59617 Monocytes (Bld) [#/Vol] 0.2 10*3/uL Normal 0-0.9 [facility] Comment on above: Performed By: #### 1 988-5, MARIONETTE PERFORMER, 4091-08, CBCA #### [facility] ([id number]) [address] [place] [address] 29190 Monocytes/100 WBC (Bld) 2.0 % Normal [facility] Comment on above: Performed By: #### 1 988-5, MARIONETTE PERFORMER, 409-3, CBCA #### [facility] ([id number]) [address] [place] [address] 53529 Neutrophils/100 WBC (Bld) 90.5 % Normal [facility] Comment on above: Performed By: #### 1 988-5, MARIONETTE PERFORMER, 4091-3, CBCA #### [facility] ([id number]) [address] [place] [address] 11384 Platelet mean volume (Bld) [Entitic vol] 8.2 fL Normal 7-12 [facility] Comment on above: Performed By: #### 1 988-5, MARIONETTE PERFORMER, 4091-, CBCA #### [facility] ([id number]) [address] [place] [address] 54459 Platelets (Bld) [#/Vol] 249 10*3/uL Normal 150-450 [facility] Comment on above: Performed By: #### 1 988-5, MARIONETTE PERFORMER, 4091-, CBCA #### [facility] ([id number]) [address] [place] [address] 27878 RBC COUNT 3.71 X10E12/L Low 3.80-5.20 [facility] Comment on above: Performed By: #### 1 988-5, MARIONETTE PERFORMER, 4091-3, CBCA #### [facility] ([id number]) [address] [place] [address] 81328 WBC (Bld) [#/Vol] 11.7 10*3/uL High 4.0-11.0 [facility] Comment on above: Performed By: #### 1 988-5, MARIONETTE PERFORMER, 4091-3, CBCA #### [facility] ([id number]) [address] [place] [address] CREATININEon 06-23-2024 Creatinine [Mass/Vol] 0.83 mg/dL Normal 0.40-1.00 [facility] Comment on above: Result Comment: METH OD TRACEABLE TO IDMS STANDARD Performed By: #### 1 988-5, MARIONETTE PERFORMER, 4091-3, CBCA #### [facility] ([id number]) [address] [place] [address] 14857 GFR/1.73 sq M.predicted among non-blacks MDRD (S/P/Bld) [Vol rate/Area] 79 mL/min/{1.73_m2} Normal >59 [facility] Comment on above: Result Comment: Reported eGFR is based on the CKD-EPI 2020 equation that does not use a race coefficient. Performed By: #### 1 988-5, MARIONETTE PERFORMER, 4091-3, CBCA #### [facility] ([id number]) [address] [place] [address] 22036 CRP [Mass/Vol]on 06-23-2024 C REACTIVE PROTEIN 1.0 mg/dL High 0.000-0.744 [facility] Comment on above: Performed By: #### 1 988-5, MARIONETTE PERFORMER, 4091-3, CBCA #### [facility] ([id number]) [address] [place] [address] 18442 Heart and Vascular Office/Cl inic Noteon 06-23-2024 [...] Daily, # 90 tab(s), Refills(s) 1, Pharmacy: [facility]/pharmacy #[id number], 142, cm, 06/23/24 8:09:00 EST, Height/Length Dosing, 83.2, kg, 06/23/24 8:09:00 EST, Weight Dosing Follow-up with me in 3 months Portions of this record may have been created with voice recognition artificial intelligence software, specifically Soukboard, mohchi and or Trenergi. Substitutions may have occurred due to the inherent limitations of voice recognition and artificial intelligence software. Follow-up No qualifying data available Problem List/Past Medical History Ongoing Adult BMI 38.0-38.9 kg/sq m Allergic rhinitis Anemia Annual physical exam Anti-citrullinated protein an (more content not included)... Normal [facility] Comment on above: Result Comment: Elec tronically Signed By: Antoinette SAMANO, Oswald Manning\.dusty\Date and Time Signed: 06/23/24 08:53 EST Vancomycin trough [Mass/Vol] on 06-23-2024 VANCOMYCIN TROUGH 13.2 ug/mL Normal 5.0-20.0 [facility] Comment on above: Performed By: #### 1 988-5, MARIONETTE PERFORMER, 4092-3, CBCA #### [facility] ([id number]) [address] [facility], [place] [address] CBC W Auto Differential pane l (Bld)on 06-15-2024 Abs Neut (ANC) 7.7 K/uL Abnormal 1.4 - 6.5 K/uL [facility] Eosinophils/100 WBC (Bld) 1.2 % 0.9 - 7.0 [facility] Hematocrit (Bld) [Volume fraction] 32.2 % Abnormal 36.0 - 48.0 % [facility] Hemoglobin (Bld) [Mass/Vol] 10.1 g/dL Abnormal 12.0 - 16.0 g/dL [facility] Neutrophils/100 WBC (Bld) 78.8 % Abnormal 43.0 - 75.0 [facility] Platelets (Bld) [#/Vol] 268 10*3/uL 150 - 450 K/uL [facility] WBC (Bld) [#/Vol] 9.8 10*3/uL 4.0 - 11.0 [facility]RADTSA[facility] CAROLINA GUTIERREZ ([id number]) 1960 F Date Time Provider Department 06/15/24 [...] the Department of Radiation Oncology at the [facility] with Erik Alejandro MD. Final recommendations will be communicated back to the requesting physician by way of the shared medical record, or letter to requesting physician via US mail. HISTORY OF PRESENT ILLNESS: Ms. Gutierrez is a 63-year-old woman from [place], [place] who had biopsy of a skin lesion of the right lower leg anterior on 12/19/[address] her [address]acher [address]. Watson which returned as invasive squamous [...] Cancer Mother Cerebral Embolism Father CVA, aneurysm, CA, other (normal [Other]) Sister None Sister None Sister Breast Cancer No Family History no known family h/o breast or ovarian cancer Anesthesia Problems No Family History SOCIAL HISTORY: Ms. Gutierrez is , has 3 children, and lives in the [place], [place] area. She currently works part-time at the [employer] and denies any tobacco use and consumes [...] diagnosed w (more content not included)... Normal [facility] CNPNon 06-15-2024 CNPN Telephone (RADTSA) MATTCAROLINA ([id number]) 1960 F Date Time Provider Department 06/15/24 [...] 8am x 1 hr. Consent signed. Thanks! oLuisa Rubi RT(R)(T) Manju Perry 06/25/2024 4:01 PM [...] fluticasone (FLONASE) 50 mcg/actuation nasal spray 1 [place] daily at bedtime. in each nostril. - [...] pos*05/09/2022 Rheumatoi (more content not included)... Normal [facility] CRP [Mass/Vol]Ordered By: Muriel Ryder Adm Asst I on 06-15-2024 CRP High sensitivity method (Bld) [Mass/Vol] 0.97 mg/dL Abnormal - 0.50 mg/dL [facility] Comprehensive metabolic 2000 panelon 06-15-2024 Creatinine [Mass/Vol] 0.92 mg/dL [facility] No Panel InformationOrdered By: Kathy Ryder Adm Asst I on 06-15-2024 Interpretation and review of laboratory results Abnormal [facility] VANCOMYCIN PRE DOSEon 2023 Vancomycin Pre 15.9 5 - 20 [facility] CBC W Auto Differential pane l (Bld)on 06-08-2024 Abs Neut (ANC) 7.5 K/uL Abnormal 1.4 - 6.5 K/uL [facility] Eosinophils/100 WBC (Bld) 1.3 % 0.9 - 7.0 [facility] Hematocrit (Bld) [Volume fraction] 33.8 % Abnormal 36.0 - 48.0 % [facility] Hemoglobin (Bld) [Mass/Vol] 10.3 g/dL Abnormal 12.0 - 16.0 g/dL [facility] Interpretation and review of laboratory results Abnormal [facility] Neutrophils/100 WBC (Bld) 74.3 % 43.0 - 75.0 [facility] Platelets (Bld) [#/Vol] 321 10*3/uL 150 - 450 K/uL [facility] WBC (Bld) [#/Vol] 10.1 10*3/uL 4.0 - 11.0 K/uL [facility] CRP [Mass/Vol]Ordered By: Muriel Ryder Adm Asst I on 06-08-2024 CRP High sensitivity method (Bld) [Mass/Vol] 0.50 mg/dL - 0.50 mg/dL [facility] No Panel InformationOrdered By: Kathy Ryder Adm Asst I on 06-08-2024 [facility] VANCOMYCIN PRE DOSEon 2023 Vancomycin Pre 15.0 5.0 - 20.0 [facility] CNOVon 06-05-2024 CNOV Office Visit (ORTHIN) CAROLINA GUTIERREZ ([id number]) 1960 F Date Time Provider Department 06/05/24 1:45 PM JOHN HOLLY During your visit today, we recorded the following information about you: John oHlly MD 06/05/2024 3:15 PM Signed [facility] NOTE Department of Orthopaedics John Holly MD [facility] NAME: Carolina Gutierrez CLINIC NO.: [id number] DATE: 06/05/2024 Surgery: Removal Of Prosthesis, Includes [...] 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 Normal [facility] XR SHLDR >/=3V AP/ZAN AP/OTH R LTon [...] ----- IMPRESSION: Postoperative changes. No acute findings. Architectural Administrative Assistant: PSCB Transcribe Date/Time: Jun 05 2024 2:26P Dictated by : MULUGETA MCKEON MD This examination was interpreted and the report reviewed and electronically signed by: MULUGETA MCKEON MD on Jun 05 2024 2:29PM EST [id number] Normal [facility] XR Shoulder - left 3 Viewson 06-05-2024 IMPRESSION: Postoperative changes. No acute findings. Architectural Administrative Assistant: [facility] Transcribe Date/Time: Jun 05 2024 2:26P Dictated [...] significant abnormality. ----- DIVISION OF RADIOLOGY Provider, [facility] [place] - 06/05/2024 * * *Final Report* * [...] IMPRESSION IMPRESSION: Postoperative changes. No acute findings. Architectural Administrative Assistant: [facility] Transcribe Date/Time: Jun 05 2024 2:26P Dictated by : MULUGETA MCKEON MD This examination was interpreted and the report reviewed and electronically signed by: MULUGETA MCKEON MD on Jun 05 2024 2:29PM EST [facility] Radiology Study observation (narrative) [facility] XR Shoulder - left 3 ViewsOr dered By: Ccf Provider on 06-05-[address] [facility] [address] Upper arm - left WO contr ana 06-03-2024 IMPRESSION: Postoperative findings as detailed with healing periprosthetic proximal humeral fracture. Architectural Administrative Assistant: [facility] Transcribe Date/Time: Jun 03 2024 8:02P Dictated by : SINTIA WISE MD This examination was interpreted and the report reviewed and electronically signed by: SINTIA WISE MD on Jun 03 2024 8:22PM [facility] * * *Final Report* * * [...] the shoulder. No discrete organized fluid collection. Gas Leak Tester (topogram) images: No additional findings. [facility] Provider, [facility] [place] - 06/03/2024 * * *Final Report* * [...] the shoulder. No discrete organized fluid collection. Gas Leak Tester (topogram) images: No additional findings. IMPRESSION IMPRESSION: Postoperative findings as detailed with healing periprosthetic proximal humeral fracture. Architectural Administrative Assistant: PSC[facility] Transcribe Date/Time: Jun 03 2024 8:02P Dictated by : SINTIA WISE MD This examination was interpreted and the report reviewed and electronically signed by: SINTIA WISE MD on Jun 03 2024 8:22PM EST [facility] Radiology Study observation (narrative) [facility] CT Upper arm - left WO contr astOrdered By: Ccf Provider on 06-03-2024 [facility] CBC W Auto Differential pane l (Bld)on 06-01-2024 Abs Neut (ANC) 6.3 K/uL 1.5 - 6.5 K/uL [facility] Eosinophils/100 WBC (Bld) 1.8 % 0.9 - 7.0 [facility] Hematocrit (Bld) [Volume fraction] 33.5 % Abnormal 36.0 - 48.0 % [facility] Hemoglobin (Bld) [Mass/Vol] 10.3 g/dL Abnormal 12.0 - 16.0 g/dL [facility] Interpretation and review of laboratory results Abnormal [facility] Neutrophils/100 WBC (Bld) 65.3 % 43.0 - 75.0 [facility] Platelets (Bld) [#/Vol] 385 10*3/uL 150 - 450 K/uL [facility] WBC (Bld) [#/Vol] 9.7 10*3/uL 4.0 - 11.0 K/uL [facility] CRP [Mass/Vol]Ordered By: Muriel Ryder Adm Asst I on 06-01-2024 CRP High sensitivity method (Bld) [Mass/Vol] mg/dL - 0.50 mg/dL [facility] Comprehensive metabolic 2000 panelon 06-01-2024 Creatinine [Mass/Vol] 0.95 mg/dL [facility] No Panel InformationOrdered By: Kathy Ryder Adm Asst I on 06-01-2024 [facility] VANCOMYCIN PRE DOSEon 2023 Vancomycin Pre 9.6 5.0 - 20.0 [facility] CBC AND AUTO DIFFon 05-24-20 ABSOLUTE BASOPHIL 0.0 X10E9/L Normal 0.0-0.2 [facility] Comment on above: Performed By: #### C BCA, MARIONETTE PERFORMER #### [facility] ([id number]) [address] [place] [address] #### GENTD #### [facility] ([id number]) [address] [place] [address] [facility] ([id number]) [address] [place] [address] 72300 ABSOLUTE NEUTROPHIL 5.2 X10E9/L Normal 1.5-6.6 [facility] Comment on above: Performed By: #### C BCA, MARIONETTE PERFORMER #### [facility] ([id number]) [address] [place] [address] 94202 #### GENTD #### [facility] ([id number]) [address] [place] [address] [facility] ([id number]) [address] [place] [address] 10217 Basophils/100 WBC (Bld) 0.6 % Normal [facility] Comment on above: Performed By: #### C BCA, MARIONETTE PERFORMER #### [facility] ([id number]) [address] [place] [address] 48319 #### GENTD #### [facility] ([id number]) [address] [place] [address] [facility] ([id number]) [address] [place] [address] 56496 Eosinophils (Bld) [#/Vol] 0.2 10*3/uL Normal 0.0-0.4 [facility] Comment on above: Performed By: #### C BCA, MARIONETTE PERFORMER #### [facility] ([id number]) [address] [place] [address] 54782 #### GENTD #### [facility] ([id number]) [address] [place] [address] [facility] ([id number]) [address] [place] [address] 57395 Eosinophils/100 WBC (Bld) 2.6 % Normal [facility] Comment on above: Performed By: #### C BCA, MARIONETTE PERFORMER #### [facility] ([id number]) [address] [place] [address] 94095 #### GENTD #### [facility] ([id number]) [address], [address] [place] [address] [facility] ([id number]) [address] [place] [address] 66834 Erythrocyte distribution width (RBC) [Ratio] 16.1 % High 11.5-15.0 [facility] Comment on above: Performed By: #### C BCA, MARIONETTE PERFORMER #### [facility] ([id number]) [address] [place] [address] 80202 #### GENTD #### [facility] ([id number]) [address], [address] [place] [address] [facility] ([id number]) [address] [place] [address]309 Hematocrit (Bld) [Volume fraction] 32.4 % Low 35-47 [facility] Comment on above: Performed By: #### C BCA, MARIONETTE PERFORMER #### [facility] ([id number]) [address] [place] [address] 56083 #### GENTD #### [facility] ([id number]) [address], [address] [place] [address] [facility] ([id number]) [address] [place] [address] 88055 Hemoglobin (Bld) [Mass/Vol] 10.5 g/dL Low 11.7-15.5 [facility] Comment on above: Performed By: #### C BCA, MARIONETTE PERFORMER #### [facility] ([id number]) [address] [place] [address] 80322 #### GENTD #### [facility] ([id number]) [address], [address] [place] [address] [facility] ([id number]) [address] [place] [address] 74935 Lymphocytes (Bld) [#/Vol] 2.3 10*3/uL Normal 1.0-3.5 [facility] Comment on above: Performed By: #### C BCA, MARIONETTE PERFORMER #### [facility] ([id number]) [address] [place] [address] 40513 #### GENTD #### [facility] ([id number]) [address], [address] [place] [address] [facility] ([id number]) [address] [place] [address] 47883 Lymphocytes/100 WBC (Bld) 27.6 % Normal [facility] Comment on above: Performed By: #### C BCA, MARIONETTE PERFORMER #### [facility] ([id number]) [address] [place] [address] 91574 #### GENTD #### [facility] ([id number]) [address], [address] [place] [address] [facility] ([id number]) [address] [place] [address] 37228 MCH (RBC) [Entitic mass] 27.8 pg Normal 27-34 [facility] Comment on above: Performed By: #### C BCA, MARIONETTE PERFORMER #### [facility] ([id number]) [address] [place] [address] 09773 #### GENTD #### [facility] ([id number]) [address] [place] [address] [facility] ([id number]) [address] [place] [address] 07395 MCHC (RBC) [Mass/Vol] 32.4 g/dL Normal 32-36 [facility] Comment on above: Performed By: #### C BCA, MARIONETTE PERFORMER #### [facility] ([id number]) [address] [place] [address] 37440 #### GENTD #### [facility] ([id number]) [address], [address] [place] [address] [facility] ([id number]) [address] [place] [address] 42054 MCV (RBC) [Entitic vol] 86 fL Normal 80-100 [facility] Comment on above: Performed By: #### C BCA, MARIONETTE PERFORMER #### [facility] ([id number]) [address] [place] [address] 57775 #### GENTD #### [facility] ([id number]) [address], [address] [place] [address] [facility] ([id number]) [address] [place] [address] 95469 Monocytes (Bld) [#/Vol] 0.5 10*3/uL Normal 0-0.9 [facility] Comment on above: Performed By: #### C BCA, MARIONETTE PERFORMER #### [facility] ([id number]) [address] [place] [address] 81371 #### GENTD #### [facility] ([id number]) [address] [place] [address] [facility] ([id number]) [address] [place] [address] 29684 Monocytes/100 WBC (Bld) 5.8 % Normal [facility] Comment on above: Performed By: #### C BCA, MARIONETTE PERFORMER #### [facility] ([id number]) [address] [place] [address] 99344 #### GENTD #### [facility] ([id number]) [address] [place] [address] [facility] ([id number]) [address] [place] [address] 58899 Neutrophils/100 WBC (Bld) 63.4 % Normal [facility] Comment on above: Performed By: #### C BCA, MARIONETTE PERFORMER #### [facility] ([id number]) [address] [place] [address] 41733 #### GENTD #### [facility] ([id number]) [address] [place] [address] [facility] ([id number]) [address] [place] [address] 67973 Platelet mean volume (Bld) [Entitic vol] 8.2 fL Normal 7-12 [facility] Comment on above: Performed By: #### C BCA, MARIONETTE PERFORMER #### [facility] ([id number]) [address] [place] [address]117 #### GENTD #### [facility] ([id number]) [address] [place] [address] [facility] ([id number]) [address] [place] [address] 01258 Platelets (Bld) [#/Vol] 351 10*3/uL Normal 150-450 [facility] Comment on above: Performed By: #### C PREET, MARIONETTE PERFORMER #### [facility] ([id number]) [address] [place] [address] #### GENTD #### [facility] ([id number]) [address], [address] [place] [address] [facility] ([id number]) [address] [place] [address] RBC COUNT 3.77 X10E12/L Low 3.80-5.20 [facility] Comment on above: Performed By: #### C BCA, MARIONETTE PERFORMER #### [facility] ([id number]) [address] [place] [address] #### GENTD #### [facility] ([id number]) [address], [address] [place] [address] [facility] ([id number]) [address] [place] [address] WBC (Bld) [#/Vol] 8.2 10*3/uL Normal 4.0-11.0 [facility] Comment on above: Performed By: #### C BCA, MARIONETTE PERFORMER #### [facility] ([id number]) [address] [place] [address] #### GENTD #### [facility] ([id number]) [address] [facility], [address] [address] [facility] ([id number]) [address] [place] [address] CREATININEon 05-24-2024 Creatinine [Mass/Vol] 0.94 mg/dL Normal 0.40-1.00 [facility] Comment on above: Result Comment: METH OD TRACEABLE TO IDMS STANDARD Performed By: #### C BCA, MARIONETTE PERFORMER #### [facility] ([id number]) [address] [place] [address] #### GENTD #### [facility] ([id number]) [address] [facility], [address] [address] [facility] ([id number]) [address] [place] [address] GFR/1.73 sq M.predicted among non-blacks MDRD (S/P/Bld) [Vol rate/Area] 68 mL/min/{1.73_m2} Normal >59 [facility] Comment on above: Result Comment: Reported eGFR is based on the CKD-EPI 2020 equation that does not use a race coefficient. Performed By: #### C BCA, MARIONETTE PERFORMER #### [facility] ([id number]) [address] [place] [address] #### GENTD #### [facility] ([id number]) [address] [facility], [address] [place] [address] [facility] ([id number]) [address] [place] [address] GENTAMICIN W/DOSEon 05-24-20 24 DOSE INFO last dose 05/21/24 Normal [facility] Comment on above: Performed By: #### C BCA, MARIONETTE PERFORMER #### [facility] ([id number]) [address] [place] [address] #### GENTD #### [facility] ([id number]) [address] [facility], [address] [place] [address] [facility] ([id number]) [address] [place] [address] GENTAMICIN LEVEL <0.3 Normal 0.0-12.0 [facility] Comment on above: Performed By: #### C BCA, MARIONETTE PERFORMER #### [facility] ([id number]) [address] [place] [address] #### GENTD #### [facility] ([id number]) [address] [place] [address], [address] [place] [address] [facility] ([id number]) [address] [place] [address] CREATININE Don 05-22-2024 Creatinine [Mass/Vol] 0.92 mg/dL Normal 0.58-0.96 [facility] Comment on above: Order Comment: Speci men Type: BLOOD SPECIMEN Ordering Facility: [facility] Address: [address] [place] [address] Performed By: #### 4 537-7 #### [facility] CLIA [id number] [address] [place] [address] [place] [address] [place] Creatinine and Glomerular filtration rate.predicted panel (S/P/Bld) 70 mL/min/1.73m??? Normal >=60 [facility] Comment on above: Order Comment: Speci men Type: BLOOD SPECIMEN Ordering Facility: [facility] Address: [address] [place] [address] Result Comment: Katlyn mated Glomerular Filtration Rate [...] GFR. Performed By: #### 4 537-7 #### [facility] CLIA [id number] [address] [place], [place] [address] [address] [place] CBC W Auto Differential pane l (Bld)on 05-20-2024 Abs Neut (ANC) 8.2 K/uL Abnormal 1.4 - 6.5 K/uL [facility] Eosinophils/100 WBC (Bld) 4.8 % 0.9 - 7.0 [facility] Hematocrit (Bld) [Volume fraction] 35.5 % Abnormal 36.0 - 48.0 % [facility] Hemoglobin (Bld) [Mass/Vol] 11.0 g/dL Abnormal 12.0 - 16.0 g/dL [facility] Neutrophils/100 WBC (Bld) 73.9 % 43.0 - 75.0 [facility] Platelets (Bld) [#/Vol] 300 10*3/uL 150 - 450 K/uL [facility] WBC (Bld) [#/Vol] 11.0 10*3/uL 4.0 - 11.0 K/uL [facility] CRP [Mass/Vol]Ordered By: Muriel Ryder Adm Asst I on 05-20-2024 CRP High sensitivity method (Bld) [Mass/Vol] 3.76 mg/dL Abnormal - 0.50 mg/dL [facility] Comprehensive metabolic 2000 panelon 05-20-2024 Creatinine [Mass/Vol] 1.27 mg/dL Abnormal [facility] ESR Westergren method (Bld) [Velocity]on 05-20-2024 WSR 81 Abnormal 0 - 30 [facility] GENTAMICIN RANDOMon 05-20-20 24 RBC Folate 9.2 [facility] No Panel InformationOrdered By: Kathy Ryder Adm Asst I on 05-20-2024 Interpretation and review of laboratory results Abnormal [facility] CNOVon 05-18-2024 CNOV Office Visit (ORTHMN) CAROLINA GUTIERREZ ([id number]) 1960 F Date Time Provider Department 05/18/24 1:45 PM JOHN HOLLY ORTHMN During your visit today, we recorded the following information about you: John Holly MD 05/18/2024 3:27 PM Signed [facility] NOTE Department of Orthopaedics John Holly MD [facility] NAME: Carolina Gutierrez CLINIC NO.: [id number] DATE: 05/18/2024 Surgery: Removal Of Prosthesis, Includes [...] Elbow Surgeon Orthopaedic Surgery Department [place] [address] Tell: [phone] Appt: Allergies As of Date: 05/18/2024 Noted [...] encounter [T81.31XA] Order(s):CT HUMERUS WO IVCON LEFT [[id number]] Order #: [id number] FUTURE Prescriptions as of 05/18/2024 - doxycycline [...] mg dis (more content not included)... Normal [facility] 05-18-20 [facility] Case Information Case Priority: None Programs: -- Referral Source: Manager Unix Referral Reason: Care coordination Case Type: Transition [...] prescribed? (more content not included)... Normal [facility] XR SHLDR >/=3V AP/ZAN AP/OTH [...] as described with no significant interval change. Architectural Administrative Assistant: [facility] Transcribe Date/Time: May 18 2024 1:00P Dictated by : MONI RIZZO MD This examination was interpreted and the report reviewed and electronically signed by: MONI RIZZO MD on May 18 2024 1:02PM EST [id number] Normal [facility] XR Shoulder - left 3 Viewson 05-18-2024 IMPRESSION: Postoperative findings as described with no significant interval change. Architectural Administrative Assistant: PSCB Transcribe Date/Time: May 18 2024 1:00P [...] significant abnormality. ----- DIVISION OF RADIOLOGY Provider, [facility] [place] - 05/18/2024 * * *Final Report* * [...] as described with no significant interval change. Architectural Administrative Assistant: DEBBIE Transcribe Date/Time: May 18 2024 1:00P Dictated by : MONI RIZZO MD This examination was interpreted and the report reviewed and electronically signed by: MONI RIZZO MD on May 18 2024 1:02PM [facility] Radiology Study observation (narrative) [facility] XR Shoulder - left 3 ViewsOr dered By: Ccf Provider on 05-18-2024 [facility] Aerobic cultureon 05-14-2024 Appearance (Unsp spec) Adequate [...] identified Cx Nom (Isol) SEE NOTE Abnormal [facility] Comment on above: Moderate growth of Methicillin resistant Staphylococcus aureus (MRSA) Internal identifier for Provider [id number] [facility] Interpretation and review of laboratory results Abnormal [facility] Service comment (Unsp spec) [Interp] SEE [...] Specimen source Nom (Unsp spec) NOT GIVEN [facility] STATUS FINAL [facility] FASTING: UNKNOWN [facility] Organization Information Site ID: QPT Name: [facility] Address: [address] [place] [address], [address] [place] [id number] Director: Blas Carlson MD [facility] CULTURE, AEROBIC BACTERIAon 05-14-2024 CULTURE, AEROBIC BACTERIA SEE NOTE Abnormal [facility] Comment on above: Order Comment: FASTI NG: UNKNOWN Result Comment: CULTURE, AEROBIC BACTERIA Micro Number: [id number] Test Status: Final Specimen Source: Not given [...] ceftaroline. Performed By: #### 4 550 #### [facility] [address], [address] [place] [address] [employer] Director: Blas Meier 05-11-2024 [facility] CAROLINA GUTIERREZ ([id number]) 1960 F Date Time Provider Department 05/11/24 [facility] During your visit today, we recorded the following information about you: Wong Zamora Research Coordinator 05/12/2024 7:09 AM Signed TELEPHONE ENCOUNTER IRB#: [id number] [facility] Study Title: Multicenter Study on Clinical and Microbiologic Outcomes for Suspected Shoulder Periprosthetic Joint Infection PI: Dr. Titsu Garay Dye Machine Tender: Mayra Zamora Date: 05/11/24 Time: 3:45 PM [...] Visit: Research Phone Interview [Other] Cmt: IRB# [id number] [facility] Prescriptions as of 05/12/2024 - [...] fluticasone (FLONASE) 50 mcg/actuation nasal spray 1 [place] daily at bedtime. in each nostril. - [...] basal (more content not included)... [facility] Case Information Case Priority: None Programs: -- Referral Source: Manager Unix Referral Reason: Care coordination Case Type: Transition [...] Areas are (more content not included)... Normal [facility] Gastroenterology Office/Clin ic Noteon 05-04-2024 Gastroenterology [...] stools and diarrhea, takes imodium as needed. [facility] 01/08/24 History of Present Illness 63-year-old [...] OTHER LESS LIKELY POSSIBILITIES. Last visit w/ [facility] Assessment/Plan 1. Esophageal web (Q39.4: Esophageal web) Ordered to start pantoprazole 40mg daily. Continue pepcid 20mg at bedtime. 2. Acid reflux (K21.9: Gastro-esophageal reflux disease without esophagitis) see #1 3. Anemia (D64.9: Anemia, unspecified) Educated to ensure she is eating protein in diet- will recheck protein level. EGD w/ Dr Montes 05/21/22 Impression and Plan Proximal esophageal web, dilated using 60 [place] Islander Arriaza dilator Colonoscopy w/ Dr Montes [...] 87.9 fL (01/24/24) Chloride: 105 mmol/L (01/24/24) [place] Absolute: 0.6 E9/L (01/24/24) CO2: 28 mmol/L (01/24/24) [place] Auto: 7.5 % (01/24/24) Creatinine: 0.6 mg/dL [...] 1 pac (more content not included)... Normal [facility] Comment on above: Result Comment: Elec tronically Signed By: Sophia HDZ, Tammie Parada\.br\Date and Time Signed: 05/04/24 14:25 EST [facility] 05-04-20 [facility] Population Health Case Information Case Priority: None Programs: -- Referral Source: Manager Unix Referral Reason: Care coordination Case Type: Transition [...] will di (more content not included)... Normal [facility] Reminderson 05-04-2024 Reminders Reminders - From: Pop Alvarez To: [facility] Prescription Benefit Specialist; Sent: 05/04/2024 09:30:12 EST Show up: 05/04/2024 09:30:00 EST Subject: TCM#5 Due Date/Time: 05/11/2024 09:29:00 EST Reminder/Recall Normal [facility] Family Medicine Office/Clini c Noteon 04-27-2024 Family Medicine Office/Clinic Note Family Medicine Office/Clinic Note [facility] Staff Carolina is a 63 year old female presenting with TCM: Hospital: [facility] Admission date: 04/14 Discharge date: 04/15 [...] off her legs. RTC as needed Ordered: [facility] 14 day disch [id number] 2. BMI 39.0-39.9,adult (Z68.39: Body mass index [...] Cefzil (Unknown) (more content not included)... Normal [facility] Comment on above: Result Comment: Elec tronically Signed By: Berry Canales\.br\Date and Time Signed: 04/27/24 11:14 EDT Renea 04-24-2024 MAKEDAN Telephone (OTMB) MATTCAROLINA ([id number]) 1960 F Date Time Provider Department 04/24/24 [facility] During your visit today, we recorded [...] fluticasone (FLONASE) 50 mcg/actuation nasal spray 1 [place] daily at bedtime. in each nostril. - [...] chronic kne (more content not included)... Normal [facility] CNOVon 04-22-2024 CNOV Office Visit (ORTHIN) CAROLINA GUTIERREZ ([id number]) 1960 F Date Time Provider Department 04/22/24 9:00 AM [facility]EVE GAMBINO During your visit today, we recorded the following information about you: Steve Gambino PA 04/22/2024 9:29 AM Addendum - Stop at the service desk team lead to schedule a follow up with Dr. [...] electronically. ALIA Sanders Referring Provider: JOHN HOLLY [[id number]] Allergies As of Date: 04/22/2024 Noted Allergy [...] GENERAL 3V OR MORE AP/TRUE AP/OTHER LEFT [[id number]] Order #: [id number] FUTURE oxyCODONE IR (ROXICODONE) 5 mg immediate [...] two times (more content not included)... Normal [facility] XR SHLDR >/=3V AP/ZAN AP/OTH R LTon [...] for which attention on follow-up is recommended. Architectural Administrative Assistant: DEBBIE Transcribe Date/Time: Apr 22 2024 9:24A Dictated by : RUTHIE GUTIERREZ MD This examination was interpreted and the report reviewed and electronically signed by: MALOU CAICEDO MD on Apr 22 2024 12:06PM EST [id number] Normal [facility] XR Shoulder - left 3 Viewson 04-22-2024 IMPRESSION: Postoperative findings as detailed with similar appearance of proximal humeral bone fragment. Interval decrease soft tissue gas for which attention on follow-up is recommended. Architectural Administrative Assistant: PSCB Transcribe Date/Time: Apr 22 2024 9:24A [...] in the aorta. DIVISION OF RADIOLOGY Provider, [facility] [place] - 04/22/2024 * * *Final Report* * [...] for which attention on follow-up is recommended. Architectural Administrative Assistant: DEBBIE Transcribe Date/Time: Apr 22 2024 9:24A Dictated by : RUTHIE GUTIERREZ MD This examination was interpreted and the report reviewed and electronically signed by: MALOU CAICEDO MD on Apr 22 2024 12:06PM EST [facility] Radiology Study observation (narrative) [facility] XR Shoulder - left 3 ViewsOr dered By: Ccf Provider on 04-22-2024 [facility] Case Information Case Priority: None Programs: -- Referral Source: Manager Unix Referral Reason: Care coordination Case Type: Transition [...] Have you filled (more content not included)... [facility] CNDSon 04-15-2024 CNDS HNO ID: [id number] Author: ANDREW JAIMES MD Service: Orthopaedic Surgery Author Type: Resident Type: Discharge Summary Filed: 04/15/2024 16:04 Note Text: Attestation signed by John Holly MD at 04/23/2024 5:31 PM Staff Addendum Patient was admitted to the hospital postoperatively. I agree with the findings and plan as documented and have discussed the case and management of the patient's care with my dental assistant instructor. John Holly M.D. M.M.Sc. Shoulder and Elbow Surgeon Orthopaedic Surgery Department [place], [place] [address] Tell: [phone] Appt: ORTHOPAEDIC SURGERY Discharge Summary PATIENT NAME: [...] Your Medications These medications were sent to [facility]acy [facility]61 (more content not included)... Normal [facility] 04-15-2024 MAKEDAN Telephone (DEBORAH) CAROLINA GUTIERREZ ([id number]) 1960 F Date Time Provider Department 04/15/24 JENY ARRIAZA During your visit today, we recorded the following information about you: Jeny Arriaza APRN.CNP 04/15/2024 1:49 PM Signed DOS: 04/14/24 Type of surgery: REMOVAL OF PROSTHESIS, INCLUDES DEBRIDEMENT AND SYNOVECTOMY WHEN PERFORMED; HUMERAL AND GLENOID COMPONENTS (EG, TOTAL SHOULDER) (Left) Catheter site: left IS Solution: 0.2% Ropivacaine Rates: 59 Venkata [phone] Carolina Switched to home-going pump, educated on [...] IS Solution: 0.2% Ropivacaine Rates: 59 Venkata [phone] Carolina 04/16 Called and talked to pt, [...] IS Solution: 0.2% Ropivacaine Rates: 59 Venkata [phone] Carolina 04/17 Called and talked to pt, [...] 24 hours? tylenol and oxycodone Britt Lopez APRN.QUALITY ASSURANCE SUPERVISOR 04/18/2024 1:43 PM Signed DOS: 04/14/24 Type of surgery: REMOVAL OF PROSTHESIS, INCLUDES DEBRIDEMENT AND SYNOVECTOMY WHEN PERFORMED; HUMERAL AND GLENOID COMPONENTS (EG, TOTAL SHOULDER) (Left) Catheter site: left IS Solution: 0.2% Ropivacaine Rates: 59 Venkata [phone] Carolina 04/18/24: Called and talked to pt, [...] IS Solution: 0.2% Ropivacaine Rates: 59 Venkata [phone] Carolina 04/20/24: Pt removed catheter yesterday without [...] by mo (more content not included)... Normal [facility] CONSULT PROGon 04-15-2024 CONSULT PROG HNO ID: [id number] Author: JENY ARRIAZA APRN.QUALITY ASSURANCE SUPERVISOR Service: Pain Management Author Type: Nurse Practitioner [...] Morphine 2 mg Q3H prn BTP ROS SECOND HELPER: Numbness within distribution of block ENT: Negative [...] pneumatic c (more content not included)... Normal [facility] NURSING PROGon 04-15-2024 NURSING PROG HNO ID: [id number] Author: LEONARDA HIGHTOWER, KAILA Service: ? Author [...] above. Plan of care to continue. Normal [facility] THERAPY NTon 04-15-2024 THERAPY NT HNO ID: [id number] Author: CHARLETTE MALLOY, OTR/L Service: Occupational Therapy Author Type: Occupational Therapist Type: Therapy (PT/OT/Speech/Resp) Filed: 04/15/2024 13:54 Note Text: Occupational Therapy Treatment Summary SERVICE DATE: 04/15/2024 SERVICE TIME: 1321 to 1345 ROOM: [place] [address] OT 6 Clicks Score: 22 Total Joint [...] of daily living (ADL) TREATMENT INTERVENTIONS Self Fci Management (72521) Timed Code Treatment (minutes): 24 Skilled Treatment [...] April 15, 2024 TIME: 1:54 PM Normal [facility] THERAPY NT HNO ID: [id number] Author: CHARLETTE MALLOY OTR/L Service: Occupational Therapy Author Type: Occupational Therapist Type: Therapy (PT/OT/Speech/Resp) Filed: 04/15/2024 10:11 Note Text: Occupational Therapy Evaluation Summary SERVICE DATE: 04/15/2024 SERVICE TIME: 923 to 1002 ROOM: [address] 6 Clicks Score: 22 Total Joint [...] daily living (ADL) TREATMENT INTERVENTIONS Evaluation, Self Fci Management (25331) Timed Code Treatment (minutes): 24 Skilled Treatment [...] April 15, 2024 TIME: 10:11 AM Normal [facility] ANES POSTPROC EVALon 024 ANES POSTPROC EVAL HNO ID: [id number] Author: POLY PRIETO MD Service: ? Author Type: Anesthesiologist Type: Anesthesia Postprocedure Evaluation Filed: 04/14/2024 11:56 Note Text: POST ANESTHESIA EVALUATION NOTE : 1960 Procedure Summary Date: 04/14/24 Room / Location: [address] [facility] Anesthesia Start: 0809 Anesthesia [...] April 14, 2024 TIME: 11:56 AM CSN: [id number] Normal [facility] ANES PRE-OPon 04-14-2024 ANES PRE-OP HNO ID: [id number] Author: POLY PRIETO MD Service: ? Author Type: Anesthesiologist Type: Anesthesia Preprocedure Evaluation Filed: 04/14/2024 06:52 Note Text: ANESTHESIOLOGY DAY OF SURGERY NOTE : 1960 Procedure Information Date/Time: 04/14/24 0745 Procedure: REMOVAL OF PROSTHESIS, INCLUDES DEBRIDEMENT AND SYNOVECTOMY WHEN PERFORMED; HUMERAL AND GLENOID COMPONENTS (EG, TOTAL SHOULDER) (Left: Shoulder) Location: [address] [facility]: John Holly MD Estimated body mass [...] 03/30/2024 Neut% 72.4 03/30/2024 Lymph% 17.0 03/30/2024 Pickens% 6.2 03/30/2024 Eosin% 0.6 03/30/2024 Baso% 0.4 03/30/2024 Abs Neut (ANC) 8.19 03/30/2024 Abs Pickens 0.70 03/30/2024 Abs Eosin 0.07 03/30/2024 Abs [...] and consent discussed: yes. Patient / Responsible Alliance Party agrees to proceed: yes Patient / Surrogate [...] mg tab (more content not included)... Normal [facility] BRIEF OP NOTon 04-14-2024 BRIEF OP NOT HNO ID: [id number] Author: KEVEN HERMOSILLO MD Service: Orthopaedic Surgery Author Type: Physician Type: Brief Op Note Filed: 04/14/2024 11:31 Note Text: BRIEF OP NOTE LOG ID: [id number] Surgery/Procedure Date: 04/14/2024 Incision/Procedure Start Time: 8:54 AM Incision Close/Procedure End Time: 11:06 AM Surgeon(s)/Procedura list(s) and Relay Associate(s): Surgeons and Role: * John Holly MD - Primary * Keven Hermoslilo MD - Fellow Procedure(s): Procedure(s) (LRB): REMOVAL [...] 14, 2024 TIME: 11:28 AM PAGER/CONTACT #: [phone] Normal [facility] Bacteria Fld Culton 04-14-20 24 Bacteria identified Cx Nom (Body fld) CULTURE, BODY FLD: No growth GRAM STAIN: No organisms seen Rare Polymorphonuclear leukocytes Gram stain from primary specimen Normal [facility] Comment on above: Performed By: #### V ALLMG #### [facility] CLIA [id number] [address] [place] [address] [place] Bacteria Spec Anaerobe Culto n 04-14-2024 Bacteria identified Anaer cx Nom (Unsp spec) CULTURE, ANAEROBE: Negative for anaerobes. No Cutibacterium acnes isolated. Normal [facility] Comment on above: Performed By: #### 4 3408-4, 635-3 ####[facility] [id number] [place] [address] [place] Performed By: #### V ALLMG #### [facility] CLIA [id number] [address] [place] [address] [place] Bacteria identified Anaer cx Nom (Unsp spec) CULTURE, ANAEROBE: Negative for anaerobes. No Cutibacterium acnes isolated. Normal [facility] Comment on above: Performed By: #### V ALLMG #### [facility] CLIA [id number] [address] [place] [address] [place] Bacteria identified Anaer cx Nom (Unsp spec) CULTURE, ANAEROBE: Negative for anaerobes. No Cutibacterium acnes isolated. Normal [facility] Comment on above: Performed By: #### V ALLMG #### [facility] CLIA [id number] [address] [place] [address] [place] Bacteria identified Anaer cx Nom (Unsp spec) CULTURE, ANAEROBE: Negative for anaerobes. No Cutibacterium acnes isolated. Normal [facility] Comment on above: Performed By: #### 4 3408-4, 635-3 ####[facility] [id number] [place] [address] [place] Bacteria identified Anaer cx Nom (Unsp spec) CULTURE, ANAEROBE: Negative for anaerobes. No Cutibacterium acnes isolated. Normal [facility] Comment on above: Performed By: #### V ALLMG #### [facility] CLIA [id number] [address] [place] [address] [place] Bacteria Tiss Culton 10-15-2 024 Bacteria identified Cx Nom (Tiss) CULTURE, TISSUE: No growth GRAM STAIN: No organisms seen Rare Polymorphonuclear leukocytes Normal [facility] Comment on above: Performed By: #### 4 3408-4, 635-3 ####[facility] [id number] [place] [address] [place] Performed By: #### V ALLMG #### [facility] CLIA [id number] [address] [place] [address] [place] Bacteria identified Cx Nom (Tiss) CULTURE, TISSUE: No growth GRAM STAIN: No organisms seen Rare Polymorphonuclear leukocytes Normal [facility] Comment on above: Performed By: #### V ALLMG #### [facility] CLIA [id number] [address] [place] [address] [place] Bacteria identified Cx Nom (Tiss) CULTURE, TISSUE: No growth GRAM STAIN: No organisms seen Few Polymorphonuclear leukocytes Normal [facility] Comment on above: Performed By: #### V ALLMG #### [facility] CLIA [id number] [address] [place] [address] [place] Bacteria identified Cx Nom (Tiss) CULTURE, TISSUE: No growth GRAM STAIN: No organisms seen No Polymorphonuclear Leukocytes Normal [facility] Comment on above: Performed By: #### 4 3408-4, 635-3 ####[facility] [id number] [place] [address] [place] Basic metabolic 2000 panelon 04-14-2023 Anion gap [Moles/Vol] 14 mmol/L Normal 8-15 [facility] Comment on above: Order Comment: Speci men Type: VENOUS BLOOD SPECIMEN Ordering Facility: [facility] Address: [address] [place] [address] Performed By: #### V ALLMG #### [facility] CLIA [id number] [address] [place] [address] [place] Calcium [Mass/Vol] 8.6 mg/dL Normal 8.5-10.2 [facility] Comment on above: Order Comment: Speci men Type: VENOUS BLOOD SPECIMEN Ordering Facility: [facility] Address: [address] [place] [address] Performed By: #### V ALLMG #### [facility] CLIA [id number] [address] [place] [address] [place] Chloride [Moles/Vol] 104 mmol/L Normal 98-107 [facility] Comment on above: Order Comment: Speci men Type: VENOUS BLOOD SPECIMEN Ordering Facility: [facility] Address: [address] [place] [address] Performed By: #### V ALLMG #### [facility] CLIA [id number] [address] [place] [address] [place] CO2 [Moles/Vol] 21 mmol/L Low 22-30 [facility] Comment on above: Order Comment: Speci men Type: VENOUS BLOOD SPECIMEN Ordering Facility: [facility] Address: [address] [place] [address] Performed By: #### V ALLMG #### [facility] CLIA [id number] [address] [place] [address] [place] Creatinine [Mass/Vol] 0.52 mg/dL Low 0.58-0.96 [facility] Comment on above: Order Comment: Speci men Type: VENOUS BLOOD SPECIMEN Ordering Facility: [facility] Address: [address] [place] [address] Performed By: #### V ALLMG #### [facility] CLIA [id number] [address] [place] [address] [place] Creatinine and Glomerular filtration rate.predicted panel (S/P/Bld) 104 mL/min/1.73m??? Normal >=60 [facility] Comment on above: Order Comment: Speci men Type: VENOUS BLOOD SPECIMEN Ordering Facility: [facility] Address: [address] [place] [address] Result Comment: Katlyn mated Glomerular Filtration Rate [...] GFR. Performed By: #### V ALLMG #### [facility] CLIA [id number] [address] [place] [address] [place] Glucose [Mass/Vol] 224 mg/dL High 74-99 [facility] Comment on above: Order Comment: Speci men Type: VENOUS BLOOD SPECIMEN Ordering Facility: [facility] Address: [address] [place] [address] Result Comment: The [place] Diabetes [employer] (ADA) provides guidance for cutoff [...] Standards of Medical Care in Diabetes 2016, [place] [employer]. Diabetes Care. 2016.39(Suppl 1). Performed By: #### V ALLMG #### [facility] CLIA [id number] [address] [place] [address] [place] Potassium [Moles/Vol] 4.1 mmol/L Normal 3.7-5.1 [facility] Comment on above: Order Comment: Lorene montano Type: VENOUS BLOOD SPECIMEN Ordering Facility: [facility] Address: [address] [place] [address] Performed By: #### V ALLMG #### [facility] CLIA [id number] [address] [place] [address] [place] Sodium [Moles/Vol] 139 mmol/L Normal 136-144 [facility] Comment on above: Order Comment: Lorene men Type: VENOUS BLOOD SPECIMEN Ordering Facility: [facility] Address: [address] [place] [address] Performed By: #### V ALLMG #### [facility] CLIA [id number] [address] [place] [address] [place] Urea nitrogen [Mass/Vol] 9 mg/dL Normal 7-21 [facility] Comment on above: Order Comment: Speci men Type: VENOUS BLOOD SPECIMEN Ordering Facility: [facility] Address: [address] [place] [address] Performed By: #### V ALLMG #### [facility] CLIA [id number] [address] [place] [address] [place] CBC panel Auto (Bld)on 04-14 Erythrocyte distribution width (RBC) [Ratio] 15.2 % High 11.5-15.0 [facility] Comment on above: Order Comment: Speci men Type: BLOOD SPECIMEN Ordering Facility: [facility] Address: [address] [place] [address] Performed By: #### 4 537-7 #### [facility] CLIA [id number] [address] [place] [address] [place] Hematocrit (Bld) [Volume fraction] 31.6 % Low 36.0-46.0 [facility] Comment on above: Order Comment: Speci men Type: BLOOD SPECIMEN Ordering Facility: [facility] Address: [address] [place] [address] Performed By: #### 4 537-7 #### [facility] CLIA [id number] [address] [place] [address] [place] Hemoglobin (Bld) [Mass/Vol] 10.1 g/dL Low 11.5-15.5 [facility] Comment on above: Order Comment: Speci men Type: BLOOD SPECIMEN Ordering Facility: [facility] Address: [address] [place] [address] Performed By: #### 4 537-7 #### [facility] CLIA [id number] [address] [place] [address] [place] MCH (RBC) [Entitic mass] 29.6 pg Normal 26.0-34.0 [facility] Comment on above: Order Comment: Speci men Type: BLOOD SPECIMEN Ordering Facility: [facility] Address: [address] [place] [address] Performed By: #### 4 537-7 #### [facility] CLIA [id number] [address] [place] [address] [place] MCHC (RBC) [Mass/Vol] 32.0 g/dL Normal 30.5-36.0 [facility] Comment on above: Order Comment: Speci men Type: BLOOD SPECIMEN Ordering Facility: [facility] Address: [address] [place] [address] Performed By: #### 4 537-7 #### [facility] CLIA [id number] [address] [place] [address] [place] MCV (RBC) [Entitic vol] 92.7 fL Normal 80.0-100.0 [facility] Comment on above: Order Comment: Speci men Type: BLOOD SPECIMEN Ordering Facility: [facility] Address: [address] [place] [address] Performed By: #### 4 537-7 #### [facility] CLIA [id number] [address] [place] [address] [place] Nucleated RBC (Bld) [#/Vol] 10*3/uL Normal <0.01 [facility] Comment on above: Order Comment: Speci men Type: BLOOD SPECIMEN Ordering Facility: [facility] Address: [address] [place] [address] Performed By: #### 4 537-7 #### [facility] CLIA [id number] [address] [place] [address] [place] Platelet mean volume (Bld) [Entitic vol] 9.3 fL Normal 9.0-12.7 [facility] Comment on above: Order Comment: Speci men Type: BLOOD SPECIMEN Ordering Facility: [facility] Address: [address] [place] [address] Performed By: #### 4 537-7 #### [facility] CLIA [id number] [address] [place] [address] [place] Platelets (Bld) [#/Vol] 276 10*3/uL Normal 150-400 [facility] Comment on above: Order Comment: Speci men Type: BLOOD SPECIMEN Ordering Facility: [facility] Address: [address] [place] [address] Performed By: #### 4 537-7 #### [facility] CLIA [id number] [address] [place] [address] [place] RBC (Bld) [#/Vol] 3.41 10*6/uL Low 3.90-5.20 [facility] Comment on above: Order Comment: Speci men Type: BLOOD SPECIMEN Ordering Facility: [facility] Address: [address] [place] [address] Performed By: #### 4 537-7 #### [facility] CLIA [id number] [address] [place] [address] [place] WBC (Bld) [#/Vol] 11.81 10*3/uL High 3.70-11.00 [facility] Comment on above: Order Comment: Speci men Type: BLOOD SPECIMEN Ordering Facility: [facility] Address: [address] [place] [address] Performed By: #### 4 537-7 #### [facility] CLIA [id number] [address] [place] [address] [place] CONFIRM BLOOD TYPEon 024 ABO A Normal [facility] Comment on above: Order Comment: Speci men Type: BLOOD SPECIMENOrdering Facility: [facility] Address: [address] [place] [address] Performed By: #### C ONABO ####[facility] [id number] [place] [address] [place] Rh Nom (Bld) Positive Normal [facility] Comment on above: Order Comment: Speci men Type: BLOOD SPECIMENOrdering Facility: [facility] Address: [address] [place] [address] Performed By: #### C ONABO ####[facility] [id number] [address] [place] ECG COMPLETEon 04-14-2024 ECG COMPLETE Ventricular Rate : 84 BPM Atrial Rate : 84 BPM P-R Interval : 156 ms QRS Duration : 92 ms Q-T Interval : 404 ms QTC Calculation(Bazett) : 477 ms Calculated P Gresham : 51 degrees Calculated R Gresham : -4 degrees Calculated T Gresham : 157 degrees NORMAL SINUS RHYTHM ST & MARKED ANTEROLATERAL T WAVE ABNORMALITY PROLONGED QT INTERVAL OR TU FUSION ABNORMAL ECG Confirmed by SAMANTHA PEREIRA M.D. ([id number]) on 05/15/2024 7:48:50 AM NAME : CAROLINA GUTIERREZ PID : [id number] : 1960 Gender : Female Race : ORD : [id number] Procedure Date : Apr 14 2024 12:27:38 [...] : , Acquired by : KELLIE RODRIGUEZ [facility] HIGH SENSITIVITY TROPONIN To n 04-14-2024 Troponin T.cardiac High sensitivity method [Mass/Vol] 11 ng/L Normal <12 [facility] Comment on above: Order Comment: Speci men Type: VENOUS BLOOD SPECIMEN Ordering Facility: [facility] Address: [address] [place] [address] Performed By: #### V ALLMG #### [facility] CLIA [id number] [address] [place], [place] [address] [id number] [place] NURSING PROGon 04-14-2024 NURSING PROG HNO ID: [id number] Author: ROSANA BAIN RN Service: Nursing Author Type: Registered Nurse Type: Nursing Progress Note Filed: 04/14/2024 16:59 Note Text: Admission/Transfer Note PATIENT NAME: Carolina Gutierrez Patient Location: [place] [id number] Room: [place] [address] Patient admitted from PACU via bed in stable condition. Actions taken: Patient oriented to room, call light function, prescribed activities, Patient rights, and Quiet at night. This note was completed by: Rosana Lama [facility] OPERATIVE NOon 04-14-2024 OPERATIVE NO HNO ID: [id number] Author: JOHN HOLLY MD Service: Orthopaedic Surgery Author Type: Physician Type: Operative Report Filed: 04/14/2024 13:48 Note Text: OPERATIVE/PROCEDURE REPORT [place] [address] Patient Name: Carolina Gutierrez : 1960 Surgery/Procedure Date: 04/14/2024 Incision/Procedure Start Time: 8:54 AM Incision Close/Procedure End Time: 11:06 AM SURGEON(S)/PROCEDURA LIST(S) AND ELECTROMAGNET CRANE OPERATOR(S): John Holly MD MMSs (Primary Surgeon) Keven [...] SURGICAL IMPLANT(S): antibiotic spacer was molded using [employer] spacer mold and 1 gram of tobramycin [...] fluid that (more content not included)... Normal [facility] SURGICAL PATHOLOGYon 024 CASE REPORT Normal [facility] Comment on above: Order Comment: Speci men Type: TISSUE SPECIMEN Ordering Facility: [facility] Address: [address] [place] [address] Result Comment: Surg ical Pathology Report Case: [id number] Authorizing Provider: John Holly MD Collected: 04/14/2024 09:32 AM Ordering Location: Admitting Received: 04/14/2024 09:42 AM Pathologist: Rabia Amaya MD Intraop: Nawaf Hawkins MD Specimens: A) - Soft Tissue (Not otherwise specified), left shoulder humerus fibrus tissue B) - Soft Tissue (Not otherwise specified), left shoulder glenoid fibrus tissue C) - Hardware/Device/Foreign Body, left shoulder explant Performed By: #### S #### [facility] CLIA [id number] [address] [place] [id number] [place] [address] [place] CLINICAL HISTORY Normal [facility] Comment on above: Order Comment: Trinidadi charmaine Type: TISSUE SPECIMEN Ordering Facility: [facility] Address: [address] [place] [address] Result Comment: Pre- op diagnosis: 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] Performed By: #### S #### [facility] CLIA [id number] [address] [place] [address] OF [facility] FINAL DIAGNOSIS Normal [facility] Comment on above: Order Comment: Lorene montano Type: TISSUE SPECIMEN Ordering Facility: [facility] Address: [address] [place] [address] Result Comment: A. S oft tissue, left humerus, revision arthroplasty: - Negative for significant acute inflammation. B. Soft tissue, left glenoid, revision arthroplasty: - Negative for significant acute inflammation. C. Soft tissue, left shoulder explant, revision arthroplasty: - Negative for significant acute inflammation. - Explant hardware, components of shoulder arthroplasty (gross examination only). Performed By: #### S #### [facility] CLIA [id number] [address] [place] [address] OF [facility] FINAL PERFORMING LAB Normal [facility] Comment on above: Order Comment: Lorene montano Type: TISSUE SPECIMEN Ordering Facility: [facility] Address: [address] [place] [address] Result Comment: Diag nostic interpretation performed at [facility], [address] [place] [address] CLIA# [id number] Transmission Tester: Manjeet Dacosta M.D. Performed By: #### S #### [facility] CLIA [id number] [address] [place] [address] OF [facility] GROSS DESCRIPTION Normal [facility] Comment on above: Order Comment: Lorene montano Type: TISSUE SPECIMEN Ordering Facility: [facility] Address: [address] [place] [address] Result Comment: A. S oft Tissue (Not otherwise specified) Received fresh for intraoperative consultation labeled as left shoulder humerus fibrous tissue is multiple fragments of red-evans tissue measuring in aggregate 2.1 x 1.3 x 0.3. The specimen is totally submitted as FS A1. Gross examination performed at [facility], [address] [place] [address] 04/14/24 10:14 AM B. Soft Tissue (Not otherwise specified) Received fresh for intraoperative consultation labeled as left shoulder glenoid fibrous tissue is multiple fragments of evans-pink fibrous tissue measuring in aggregate 2.3 x 1.7 x 0.3. The specimen is totally submitted as FS B1. Gross examination performed at [place] [id number] 04/14/24 10:15 AM C. Hardware/Device/Foreign Body Received in formalin labeled left shoulder explant are components of a total shoulder prosthesis. The humeral neck component measures 6.0 x 2.5 x 1.4 cm and has the following inscription 6 135o 155o . The humeral acetabular shell measures 3.6 x 3.6 x 3.0 cm with a center screw and the following inscription Arthrex [id number] 2 2.35054 [id number] 33 and 135o 155o . The metallic humeral head measures 3.2 x 3.2 x 2.0 cm and demonstrates the following inscription Arthrex 33+4 LAT/24 [id number] 22.35499 . The articular surface demonstrates evidence of abrasive wear. The metallic glenoid post measures 3.5 x 2.5 x 2.5 cm and demonstrates the following inscription 20 [id number] . The polyethylene glenoid insert measures 3.6 x 3.6 x 1.3 cm and demonstrates the following inscription Arthrex [id number] ZQ2136 22.20706 33 +3 . The articular surface demonstrates [...] in cassette C1. Gross examination performed at [address] [address] CLIA# [id number] [facility] 04/15/24 9:57 AM Performed By: #### S #### [facility] CLIA [id number] [address] [place] [address] [place] [address] [place] INTRAOPERATIVE DIAGNOSIS Normal [facility] Comment on above: Order Comment: Speci men Type: TISSUE SPECIMEN Ordering Facility: [facility] Address: [facility] [place] [address] Result Comment: A. S oft Tissue (Not otherwise specified) FSA 1: Negative for significant acute inflammation. (Dr. Hawkins) Intraoperative diagnosis performed at [facility], [address] [place] [address] CLIA# [id number] B. Soft Tissue (Not otherwise specified) FSB 1: Negative for significant acute inflammation. (Dr. Hawkins) Intraoperative diagnosis performed at [facility], [facility] [place] [id number] CLIA# [id number] Performed By: #### S #### [facility] CLIA [id number] [address] [place] [address] [place] TYPE + SCREENon 04-14-2024 ABO A Normal [facility] Comment on above: Order Comment: Speci men Type: BLOOD SPECIMEN Ordering Facility: [facility] Address: [address] [place] [address] Performed By: #### T SCR #### [facility] CLIA [id number] [address] [place] [address] [place] Rh Nom (Bld) Positive Normal [facility] Comment on above: Order Comment: Speci men Type: BLOOD SPECIMEN Ordering Facility: [facility] Address: [address] [place] [address] Performed By: #### T SCR #### [facility] CLIA [id number] [address] [place] [address] [place] TYPE AND SCREEN EXPIRATION 04/17/2024 23:59 Normal [facility] Comment on above: Order Comment: Speci men Type: BLOOD SPECIMEN Ordering Facility: [facility] Address: [address] [place] [address] Performed By: #### T SCR #### [facility] CLIA [id number] [address] [place] [address] [place] VENOUS BLOOD GASES WITH IONI ZED MAGNESIUMon 04-14-2024 Base excess Calc (BldV) [Moles/Vol] 0 mmol/L Normal 0-2 [facility] Comment on above: Order Comment: Speci men Type: VENOUS BLOOD SPECIMEN Ordering Facility: [facility] Address: [address] [place] [address] Performed By: #### V ALLMG #### [facility] CLIA [id number] [address] [place] [address] [place] Body temperature 97.34 [degF] Normal [facility] Comment on above: Order Comment: Speci men Type: VENOUS BLOOD SPECIMEN Ordering Facility: [facility] Address: [address] [place] [address] Performed By: #### V ALLMG #### [facility] CLIA [id number] [address] [place] [address] [place] Calcium.ionized (Bld) [Mass/Vol] 1.18 mmol/L Normal 1.08-1.30 [facility] Comment on above: Order Comment: Speci men Type: VENOUS BLOOD SPECIMEN Ordering Facility: [facility] Address: [address] [place] [address] Performed By: #### V ALLMG #### [facility] CLIA [id number] [address] [place] [address] [place] Calcium.ionized adjusted to pH 7.4 (BldA) [Moles/Vol] 1.14 mmol/L Normal 1.08-1.30 [facility] Comment on above: Order Comment: Speci men Type: VENOUS BLOOD SPECIMEN Ordering Facility: [facility] Address: [address] [place] [address] Performed By: #### V ALLMG #### [facility] CLIA [id number] [address] [place] [address] [place] Carboxyhemoglobin (BldV) [Mass fraction] 1.1 % Normal 0.0-2.0 [facility] Comment on above: Order Comment: Speci men Type: VENOUS BLOOD SPECIMEN Ordering Facility: [facility] Address: [address] [place] [address] Result Comment: Carb oxyhemoglobin Reference Range for Smokers: 2.0-8.0% Performed By: #### V ALLMG #### [facility] CLIA [id number] [address] [place] [address] [place] CO2 (BldV) [Partial pressure] 49 mm[Hg] Normal 42-55 [facility] Comment on above: Order Comment: Speci men Type: VENOUS BLOOD SPECIMEN Ordering Facility: [facility] Address: [address] [place] [address] Performed By: #### V ALLMG #### [facility] CLIA [id number] [address] [place] [address] [place] CO2 adjusted to patient's actual temperature (BldV) [Partial pressure] 47 mmHg Normal 42-55 [facility] Comment on above: Order Comment: Speci men Type: VENOUS BLOOD SPECIMEN Ordering Facility: [facility] Address: [address] [place] [address] Performed By: #### V ALLMG #### [facility] CLIA [id number] [address] [place] [address] [place] Glucose [Mass/Vol] 141 mg/dL High 60-105 [facility] Comment on above: Order Comment: Speci men Type: VENOUS BLOOD SPECIMEN Ordering Facility: [facility] Address: [address] [place] [address] Performed By: #### V ALLMG #### [facility] CLIA [id number] [address] [place] [address] [place] HCO3 (Bld) [Moles/Vol] 26 mmol/L Normal 24-28 [facility] Comment on above: Order Comment: Speci men Type: VENOUS BLOOD SPECIMEN Ordering Facility: [facility] Address: [address] [place] [address] Performed By: #### V ALLMG #### [facility] CLIA [id number] [address] [place] [address] [place] Hematocrit (Bld) [Volume fraction] 35.7 % Low 36.0-46.0 [facility] Comment on above: Order Comment: Speci men Type: VENOUS BLOOD SPECIMEN Ordering Facility: [facility] Address: [address] [place] [address] Performed By: #### V ALLMG #### [facility] CLIA [id number] [address] [place] [address] [place] Hemoglobin (Bld) [Mass/Vol] 11.6 g/dL Normal 11.5-15.5 [facility] Comment on above: Order Comment: Speci men Type: VENOUS BLOOD SPECIMEN Ordering Facility: [facility] Address: [address] [place] [address] Performed By: #### V ALLMG #### [facility] CLIA [id number] [address] [place] [address] [place] Lactate [Moles/Vol] 2.0 mmol/L Normal 0.5-2.2 [facility] Comment on above: Order Comment: Speci men Type: VENOUS BLOOD SPECIMEN Ordering Facility: [facility] Address: [address] [place] [address] Performed By: #### V ALLMG #### [facility] CLIA [id number] [address] [place] [address] [place] Magnesium [Moles/Vol] 0.35 mmol/L Low 0.45-0.60 [facility] Comment on above: Order Comment: Speci men Type: VENOUS BLOOD SPECIMEN Ordering Facility: [facility] Address: [address] [place] [address] Performed By: #### V ALLMG #### [facility] CLIA [id number] [address] [place], [place] [address] [place] Methemoglobin (Bld) [Mass fraction] 0.5 % Normal 0.0-1.5 [facility] Comment on above: Order Comment: Speci men Type: VENOUS BLOOD SPECIMEN Ordering Facility: [facility] Address: [address] [place] [address] Performed By: #### V ALLMG #### [facility] CLIA [id number] [address] [place] [address] [place] O2 THERAPY NC = Nasal Cannula Normal [facility] Comment on above: Order Comment: Speci men Type: VENOUS BLOOD SPECIMEN Ordering Facility: [facility] Address: [address] [place] [address] Result Comment: 1 L Performed By: #### V ALLMG #### [facility] CLIA [id number] [address] [place] [address] [place] Oxygen (BldV) [Partial pressure] 30 mm[Hg] Low 35-45 [facility] Comment on above: Order Comment: Speci men Type: VENOUS BLOOD SPECIMEN Ordering Facility: [facility] Address: [address] [place] [address] Performed By: #### V ALLMG #### [facility] CLIA [id number] [address] [place] [address] [place] Oxygen adjusted to patient's actual temperature (BldV) [Partial pressure] 29 mmHg Low 35-45 [facility] Comment on above: Order Comment: Speci men Type: VENOUS BLOOD SPECIMEN Ordering Facility: [facility] Address: [address] [place] [address] Performed By: #### V ALLMG #### [facility] CLIA [id number] [address] [place] [address] [place] Oxygen saturation in Venous blood 47 % Low 60-85 [facility] Comment on above: Order Comment: Speci men Type: VENOUS BLOOD SPECIMEN Ordering Facility: [facility] Address: [address] [place] [address] Performed By: #### V ALLMG #### [facility] CLIA [id number] [address] [place] [address] [place] Oxyhemoglobin (BldV) [Mass fraction] 46 % Low 60-85 [facility] Comment on above: Order Comment: Speci men Type: VENOUS BLOOD SPECIMEN Ordering Facility: [facility] Address: [address] [place] [address] Performed By: #### V ALLMG #### [facility] CLIA [id number] [address] [place] [address] [place] pH (BldV) 7.34 [pH] Normal 7.32-7.42 [facility] Comment on above: Order Comment: Speci men Type: VENOUS BLOOD SPECIMEN Ordering Facility: [facility] Address: [address] [place] [address] Performed By: #### V ALLMG #### [facility] CLIA [id number] [address] [place] [address] [place] pH adjusted to patient's actual temperature (BldV) 7.35 Normal 7.32-7.42 [facility] Comment on above: Order Comment: Speci men Type: VENOUS BLOOD SPECIMEN Ordering Facility: [facility] Address: [address] [place] [address] Performed By: #### V ALLMG #### [facility] CLIA [id number] [address] [place] [address] [place] Potassium [Moles/Vol] 3.7 mmol/L Normal 3.5-5.0 [facility] Comment on above: Order Comment: Speci men Type: VENOUS BLOOD SPECIMEN Ordering Facility: [facility] Address: [address] [place] [address] Performed By: #### V ALLMG #### [facility] CLIA [id number] [address] [place] [address] [place] Sodium [Moles/Vol] 138 mmol/L Normal 136-144 [facility] Comment on above: Order Comment: Speci men Type: VENOUS BLOOD SPECIMEN Ordering Facility: [facility] Address: [address] [place] [address] Performed By: #### V ALLMG #### [facility] CLIA [id number] [address] [facility] [id number] [address] [place] XR SHOULDER 2V [...] other significant abnormality. ----- IMPRESSION: Postoperative changes. Architectural Administrative Assistant: DEBBIE Transcribe Date/Time: Apr 14 2024 12:36P Dictated by : MULUGETA MCKEON MD This examination was interpreted and the report reviewed and electronically signed by: MULUGETA MCKEON MD on Apr 14 2024 12:38PM EST [id number] CN Normal [facility] Renea 04-08-2024 MAKEDAN Telephone (ORTHMN) CAROLINA GUTIERREZ ([id number]) 1960 F Date Time Provider Department 04/08/24 [...] fluticasone (FLONASE) 50 mcg/actuation nasal spray 1 [place] daily at bedtime. in each nostril. - [...] Status:Closed by LANNY PÉREZ on 04/08/24 Normal [facility] CHEMISTRYOrdered By: SYSTEM SYSTEM on 04-07-2024 Creatinine [...] 300 Contrast amount in ml's: 100 Normal [facility] Creatinineon 04-07-2024 Creatinine [Mass/Vol] 0.6 mg/dL Normal 0.5-1.3 [facility] Comment on above: Performed By: #### 2 [id number] #### [facility] [address] [place] [address] eGFRon 04-07-2024 eGFR 100 mL/min/1.73 m2 Normal >=59 [facility] Comment on above: Performed By: #### 1 [id number] ####[facility] [address] [place] [address] [facility] 04-01-2024 RAUL Telephone (ORTHIN) CAROLINA GUTIERREZ ([id number]) 1960 F Date Time Provider Department 04/01/24 STEVE GAMBINO During your visit today, we recorded the following information about you: Steve Gambino PA 04/03/2024 10:51 AM Addendum Insurance Name Rosita Patient's Insurance Case# [id number] Ordering Provider John [facility] [employer] [id number] - REVISION JOINT TOTAL SHOULDER Our goal is to proceed with a two-stage revision with the for stage being removal of the current total shoulder arthroplasty and placement of antibiotic spacer. With hopeful revision surgery coming in 3 months. Possible code - PROSTHESIS REMOVAL HUMERAL AND GLENOID COMPONENT [90595 (CPT?)] Peer [place] [address] is denied as that is for shoulder [...] Reason for Visit: Peer To Peer Consultation [6129] Prescriptions as of 04/03/2024 - L.acidophilus-L.rham nosus [...] fluticasone (FLONASE) 50 mcg/actuation nasal spray 1 [place] daily at bedtime. in each nostril. - [...] 10/01/2023 Per (more content not included)... Normal [facility] Basic metabolic 2000 panelon 03-30-2024 Anion gap [Moles/Vol] 13 mmol/L Normal 8-15 [facility] Comment on above: Order Comment: Speci men Type: BLOOD SPECIMEN Ordering Facility: [facility] Address: [address] [place] [address] Performed By: #### 2 4321-2 #### [facility] CLIA [id number] [address] [place] [address] [place] Calcium [Mass/Vol] 9.6 mg/dL Normal 8.5-10.2 [facility] Comment on above: Order Comment: Speci men Type: BLOOD SPECIMEN Ordering Facility: [facility] Address: [address] [place] [address] Performed By: #### 2 4321-2 #### [facility] CLIA [id number] [address] [place] [address] [place] Chloride [Moles/Vol] 101 mmol/L Normal 98-107 [facility] Comment on above: Order Comment: Speci men Type: BLOOD SPECIMEN Ordering Facility: [facility] Address: [address] [place] [address] Performed By: #### 2 4321-2 #### [facility] CLIA [id number] [address] [place] [address] [place] CO2 [Moles/Vol] 26 mmol/L Normal 22-30 [facility] Comment on above: Order Comment: Speci men Type: BLOOD SPECIMEN Ordering Facility: [facility] Address: [address] [place] [address] Performed By: #### 2 4321-2 #### [facility] CLIA [id number] [address] [place] [address] [place] Creatinine [Mass/Vol] 0.70 mg/dL Normal 0.58-0.96 [facility] Comment on above: Order Comment: Speci men Type: BLOOD SPECIMEN Ordering Facility: [facility] Address: [address] [place] [address] Performed By: #### 2 4321-2 #### [facility] CLIA [id number] [address] [place] [address] [place] Creatinine and Glomerular filtration rate.predicted panel (S/P/Bld) 97 mL/min/1.73m??? Normal >=60 [facility] Comment on above: Order Comment: Speci men Type: BLOOD SPECIMEN Ordering Facility: [facility] Address: [address] [place] [address] Result Comment: Katlyn mated Glomerular Filtration Rate [...] GFR. Performed By: #### 2 4321-2 #### [facility] CLIA [id number] [address] [place] [address] [place] Glucose [Mass/Vol] 89 mg/dL Normal 74-99 [facility] Comment on above: Order Comment: Lorene montano Type: BLOOD SPECIMEN Ordering Facility: [facility] Address: [address] [place], [place] [address] Result Comment: The [place] Diabetes Association (ADA) provides guidance for cutoff [...] Standards of Medical Care in Diabetes 2016, [place] Diabetes Association. Diabetes Care. 2016.39(Suppl 1). Performed By: #### 2 4321-2 #### [facility] CLIA [id number] [address] [place] [address] [place] Potassium [Moles/Vol] 4.1 mmol/L Normal 3.7-5.1 [facility] Comment on above: Order Comment: Lorene montano Type: BLOOD SPECIMEN Ordering Facility: [facility] Address: [address] [place] [address] Performed By: #### 2 4321-2 #### [facility] CLIA [id number] [address] [place] [address] [place] Sodium [Moles/Vol] 140 mmol/L Normal 136-144 [facility] Comment on above: Order Comment: Trinidadi men Type: BLOOD SPECIMEN Ordering Facility: [facility] Address: [address] [place], [place] [address] Performed By: #### 2 4321-2 #### [facility] CLIA [id number] [address] [place] [address] [place] Urea nitrogen [Mass/Vol] 18 mg/dL Normal 7-21 [facility] Comment on above: Order Comment: Speci men Type: BLOOD SPECIMEN Ordering Facility: [facility] Address: [address] [place] [address] Performed By: #### 2 4321-2 #### [facility] CLIA [id number] [address] [place] [address] [place] CBC W Auto Differential pane l (Bld)on 03-30-2024 Basophils (Bld) [#/Vol] 0.04 10*3/uL Normal <0.11 [facility] Comment on above: Order Comment: Speci men Type: BLOOD SPECIMEN Ordering Facility: [facility] Address: [address] [place] [address] Performed By: #### 4 537-7 #### [facility] CLIA [id number] [address] [place] [address] [place] Basophils/100 WBC (Bld) 0.4 % Normal [facility] Comment on above: Order Comment: Speci men Type: BLOOD SPECIMEN Ordering Facility: [facility] Address: [address] [place] [address] Performed By: #### 4 537-7 #### [facility] CLIA [id number] [address] [place] [address] [place] Differential cell count method Nom (Bld) Auto Normal [facility] Comment on above: Order Comment: Speci men Type: BLOOD SPECIMEN Ordering Facility: [facility] Address: [address] [place] [address] Performed By: #### 4 537-7 #### [facility] CLIA [id number] [address] [place] [address] [place] Eosinophils (Bld) [#/Vol] 0.07 10*3/uL Normal <0.46 [facility] Comment on above: Order Comment: Speci men Type: BLOOD SPECIMEN Ordering Facility: [facility] Address: [address] [place] [address] Performed By: #### 4 537-7 #### [facility] CLIA [id number] [address] [place] [address] [place] Eosinophils/100 WBC (Bld) 0.6 % Normal [facility] Comment on above: Order Comment: Speci men Type: BLOOD SPECIMEN Ordering Facility: [facility] Address: [address] [place] [address] Performed By: #### 4 537-7 #### [facility] CLIA [id number] [address] [place] [address] [place] Erythrocyte distribution width (RBC) [Ratio] 15.9 % High 11.5-15.0 [facility] Comment on above: Order Comment: Speci men Type: BLOOD SPECIMEN Ordering Facility: [facility] Address: [address] [place] [address] Performed By: #### 4 537-7 #### [facility] CLIA [id number] [address] [place] [address] [place] Hematocrit (Bld) [Volume fraction] 38.7 % Normal 36.0-46.0 [facility] Comment on above: Order Comment: Speci men Type: BLOOD SPECIMEN Ordering Facility: [facility] Address: [address] [place] [address] Performed By: #### 4 537-7 #### [facility] CLIA [id number] [address] [place] [address] [place] Hemoglobin (Bld) [Mass/Vol] 12.0 g/dL Normal 11.5-15.5 [facility] Comment on above: Order Comment: Speci men Type: BLOOD SPECIMEN Ordering Facility: [facility] Address: [address] [place] [address] Performed By: #### 4 537-7 #### [facility] CLIA [id number] [address] [place] [address] [place] Immature granulocytes (Bld) [#/Vol] 0.39 10*3/uL High <0.10 [facility] Comment on above: Order Comment: Speci men Type: BLOOD SPECIMEN Ordering Facility: [facility] Address: [address] [place] [address] Performed By: #### 4 537-7 #### [facility] CLIA [id number] [address] [place] [address] [place] Immature granulocytes/100 WBC (Bld) 3.4 % Normal [facility] Comment on above: Order Comment: Speci men Type: BLOOD SPECIMEN Ordering Facility: [facility] Address: [address] [place] [address] Performed By: #### 4 537-7 #### [facility] CLIA [id number] [address] [place] [address] [place] Lymphocytes (Bld) [#/Vol] 1.93 10*3/uL Normal 1.00-4.00 [facility] Comment on above: Order Comment: Speci men Type: BLOOD SPECIMEN Ordering Facility: [facility] Address: [address] [place] [address] Performed By: #### 4 537-7 #### [facility] CLIA [id number] [address] [place] [address] [place] Lymphocytes/100 WBC (Bld) 17.0 % Normal [facility] Comment on above: Order Comment: Speci men Type: BLOOD SPECIMEN Ordering Facility: [facility] Address: [address] [place] [address] Performed By: #### 4 537-7 #### [facility] CLIA [id number] [address] [place] [address] [place] MCH (RBC) [Entitic mass] 29.4 pg Normal 26.0-34.0 [facility] Comment on above: Order Comment: Speci men Type: BLOOD SPECIMEN Ordering Facility: [facility] Address: [address] [place] [address] Performed By: #### 4 537-7 #### [facility] CLIA [id number] [address] [place] [address] [place] MCHC (RBC) [Mass/Vol] 31.0 g/dL Normal 30.5-36.0 [facility] Comment on above: Order Comment: Speci men Type: BLOOD SPECIMEN Ordering Facility: [facility] Address: [address] [place] [address] Performed By: #### 4 537-7 #### [facility] CLIA [id number] [address] [place] [address] [place] MCV (RBC) [Entitic vol] 94.9 fL Normal 80.0-100.0 [facility] Comment on above: Order Comment: Speci men Type: BLOOD SPECIMEN Ordering Facility: [facility] Address: [address] [place] [address] Performed By: #### 4 537-7 #### [facility] CLIA [id number] [address] [place] [address] [place] Monocytes (Bld) [#/Vol] 0.70 10*3/uL Normal <0.87 [facility] Comment on above: Order Comment: Speci men Type: BLOOD SPECIMEN Ordering Facility: [facility] Address: [address] [place] [address] Performed By: #### 4 537-7 #### [facility] CLIA [id number] [address] [place] [address] [place] Monocytes/100 WBC (Bld) 6.2 % Normal [facility] Comment on above: Order Comment: Speci men Type: BLOOD SPECIMEN Ordering Facility: [facility] Address: [address] [place] [address] Performed By: #### 4 537-7 #### [facility] CLIA [id number] [address] [place] [address] [place] Neutrophils (Bld) [#/Vol] 8.19 10*3/uL High 1.45-7.50 [facility] Comment on above: Order Comment: Speci men Type: BLOOD SPECIMEN Ordering Facility: [facility] Address: [address] [place] [address] Performed By: #### 4 537-7 #### [facility] CLIA [id number] [address] [place] [address] [place] Neutrophils/100 WBC (Bld) 72.4 % Normal [facility] Comment on above: Order Comment: Speci men Type: BLOOD SPECIMEN Ordering Facility: [facility] Address: [address] [place] [address] Performed By: #### 4 537-7 #### [facility] CLIA [id number] [address] [place] [address] [place] Nucleated RBC (Bld) [#/Vol] 10*3/uL Normal <0.01 [facility] Comment on above: Order Comment: Speci men Type: BLOOD SPECIMEN Ordering Facility: [facility] Address: [address] [place] [address] Performed By: #### 4 537-7 #### [facility] CLIA [id number] [address] [place] [address] [place] Nucleated RBC/100 WBC (Bld) [Ratio] 0.0 /100 WBC Normal [facility] Comment on above: Order Comment: Speci men Type: BLOOD SPECIMEN Ordering Facility: [facility] Address: [address] [place] [address] Performed By: #### 4 537-7 #### [facility] CLIA [id number] [address] [place] [address] [place] Platelet mean volume (Bld) [Entitic vol] 9.7 fL Normal 9.0-12.7 [facility] Comment on above: Order Comment: Speci men Type: BLOOD SPECIMEN Ordering Facility: [facility] Address: [address] [place] [address] Performed By: #### 4 537-7 #### [facility] CLIA [id number] [address] [place] [address] [place] Platelets (Bld) [#/Vol] 352 10*3/uL Normal 150-400 [facility] Comment on above: Order Comment: Speci men Type: BLOOD SPECIMEN Ordering Facility: [facility] Address: [address] [place] [address] Performed By: #### 4 537-7 #### [facility] CLIA [id number] [address] [place] [address] [place] RBC (Bld) [#/Vol] 4.08 10*6/uL Normal 3.90-5.20 [facility] Comment on above: Order Comment: Speci men Type: BLOOD SPECIMEN Ordering Facility: [facility] Address: [address] [place] [address] Performed By: #### 4 537-7 #### [facility] CLIA [id number] [address] [place] [address] [place] WBC (Bld) [#/Vol] 11.32 10*3/uL High 3.70-11.00 [facility] Comment on above: Order Comment: Speci men Type: BLOOD SPECIMEN Ordering Facility: [facility] Address: [address] [place] [address] Performed By: #### 4 537-7 #### [facility] CLIA [id number] [address] [place], [place] [address] [place] HISTORY PHYSICALon HISTORY PHYSICAL HNO ID: [id number] Author: SERGE TY PA-C Service: ? Author Type: Physician Relay Associate Type: H&P Filed: 03/31/2024 12:29 Note Text: [facility] HISTORY AND PHYSICAL EXAMINATION SERVICE DATE: 03/30/2024 SERVICE TIME: 3:33 PM PRIMARY CARE PHYSICIAN: Berry Beth, MEAT TEAM MEMBER, MAKEDA, MEAT TEAM MEMBER.QUALITY ASSURANCE SUPERVISOR Assessment Patient has the following medical conditions which may affect merary-operative course: PONV (postoperative nausea and vomiting) Assessment: Pt reports PONV with previous surgeries/procedures . Asthma without status asthmaticus Assessment: Stable, well controlled on Singulair BID, Advair and Spiriva. Pt reports that she uses albuterol rarely. Follows with outside allergy Dr. Hernandez [facility] 03/25/[address] Del Rio [facility] 02/04/24. Lungs CTAB, SpO2 97% on RA. Hyperlipidemia Assessment: No RX currently. Monitored by PCP. Elevated blood pressure reading in office with white coat syndrome, without diagnosis of hypertension Assessment: BP today 119/74. Pt was recently started on metoprolol for IST per outside cardiology. Inappropriate sinus tachycardia (HCC) Assessment: Stable, on metoprolol. Follows with outside cardiology at [facility] 03/23/24 Oswald Curry PA-C. Pt reports [...] during sleep Non-male patient STOP-Bang Score: 5 [id number] Score: Age: <65 Sex: female CHF history: No Hypertension history: Yes Stroke/TIA/thromboem bolism history: Yes Vascular disease history: No Diabetes history: Yes [id number] Score: 5 ANESTHESIA FINDINGS: Intubation History: No [...] free AND (more content not included)... Normal [facility] HbA1c (Bld)on 03-30-2024 Average glucose Estimated from glycated hemoglobin (Bld) [Mass/Vol] 126 mg/dL Normal [facility] Comment on above: Order Comment: Lorene montano Type: BLOOD SPECIMEN Ordering Facility: [facility] Address: [address] [place] [address] Result Comment: eAG: (Estimated average glucose) is a calculated value from HgbA1c and is service representative of the average blood glucose level in the last 2-3 month period. Performed By: #### 4 537-7 #### [facility] CLIA [id number] [address] [place] [address] [place] HbA1c (Bld) [Mass fraction] 6.0 % High 4.3-5.6 [facility] Comment on above: Order Comment: Lorene montano Type: BLOOD SPECIMEN Ordering Facility: [facility] Address: [address] [place] [address] Result Comment: [place] Diabetes Association guidelines indicate that patients with HgbA1c in the range 5.7-6.4% are at increased risk for development of diabetes, and intervention by lifestyle modification may be beneficial. HgbA1c greater or equal to 6.5% is considered diagnostic of diabetes. Performed By: #### 4 537-7 #### [facility] CLIA [id number] [address] [place] [address] [place] Heart and Vascular [...] Daily, # 90 tab(s), Refills(s) 0, Pharmacy: [facility]/pharmacy #[id number], 149, cm, 03/23/24 14:03:00 EDT, Height/Length Dosing, 85.8, kg, 03/23/24 14:10:00 EDT, Weight Dosing Follow-up with me in 3 months Portions of this record may have been created with voice recognition artificial intelligence software, specifically Soukboard, mohchi and or Trenergi. Substitutions may have occurred due to the [...] web Exposu (more content not included)... Normal [facility] Comment on above: Result Comment: Elec [...] BY: Nick Soni MD ca Dictated: 03/19/2024 [id number] Transcribed: 03/23/2024 cc:Oswald Curry PA-C [facility] Comment on above: Result Comment: Elec tronically Signed By: Nae HDZ, Nick Hutchins.br\Date and Time Signed: 03/23/24 14:11 EDT Aspergillus fumagatus IgEon 03-20-2024 A. fumigatus IgE Qn (S) 0.10 kU/L Abnormal Class 0/I [facility] Comment on above: Levels of Specific I [...] Eosinophils/100 WBC (Bld) 0 % Not Estab. [facility] Erythrocyte distribution width (RBC) [Ratio] 15.7 % High 11.7 - 15.4 % [facility] Hematocrit (Bld) [Volume fraction] 41.8 % 34.0 - 46.6 % [facility] Hemoglobin (Bld) [Mass/Vol] 13.3 g/dL 11.1 - 15.9 g/dL [facility] Immature granulocytes (Bld) [#/Vol] 0.1 10*3/uL [facility] Immature granulocytes/100 WBC (Bld) 1 % Not Estab. [facility] Lymphocytes (Bld) [#/Vol] 2.3 10*3/uL [facility] Lymphocytes/100 WBC (Bld) 24 % Not Estab. [facility] MCH (RBC) [Entitic mass] 29.8 pg 26.6 - 33.0 pg [facility] MCHC (RBC) [Mass/Vol] 31.8 g/dL 31.5 - 35.7 g/dL [facility] MCV (RBC) [Entitic vol] 94 fL 79 - 97 fL [facility] Monocytes (Bld) [#/Vol] 0.5 10*3/uL [facility] Monocytes/100 WBC (Bld) 5 % Not Estab. [facility] Neutrophils (Bld) [#/Vol] 6.6 10*3/uL [facility] Neutrophils/100 WBC (Bld) 70 % Not Estab. [facility] Platelets (Bld) [#/Vol] 330 10*3/uL [facility] RBC (Bld) [#/Vol] 4.47 10*6/uL [facility] WBC (Bld) [#/Vol] 9.5 10*3/uL [facility] Diphtheria / Tetanus Antibod y Panelon 03-20-2024 C. diphtheriae Ab IA Qn (S) 0.11 [facility] Comment on above: Interpretation: Non-Protective <0.10 Protective >=0.10 For research use only. C. tetani toxoid IgG IA Qn 0.30 [facility] Comment on above: Interpretation: Non-Protective <0.10 Protective >=0.10 Results for this test are for research purposes only by the assay's plastic parts designer. The performance characteristics of this product have not been established. Results should not be used as a diagnostic procedure without confirmation of the diagnosis by another medically established diagnostic product or procedure. IgAon 03-20-2024 IgA [Mass/Vol] 197 mg/dL 87 - 352 mg/dL [facility] IgEon 03-20-2024 IgE Qn 32 [IU]/L [facility] IgGon 03-20-2024 IgG [Mass/Vol] 645 mg/dL 586 - 1602 mg/dL [facility] IgMon 03-20-2024 IgM [Mass/Vol] 92 mg/dL 26 - 217 mg/dL [facility] No Panel Informationon 03-20 Interpretation and review of laboratory results Abnormal [facility] Performed at: 01 - [address] [id number] Electrotyper Apprentice: Kenji Billy PhD, Phone: [phone] [facility] Performed at: [address] [id number] Electrotyper Apprentice: Ryne Melchor MD, Phone: [phone] [facility] (23 SEROTYPE )on 03-20-2024 S. pneumoniae Albanian type 1 IgG IA (S) [Mass/Vol] 0.9 ug/mL Low 1.3 - PINF ug/mL [facility] S. pneumoniae Albanian type 10A IgG IA (S) [Mass/Vol] <0.1 Low 1.3 - PINF ug/mL [facility] S. pneumoniae Albanian type 11A IgG IA (S) [Mass/Vol] <0.1 Low 1.3 - PINF ug/mL [facility] S. pneumoniae Albanian type 12F IgG IA (S) [Mass/Vol] <0.1 Low 1.3 - PINF ug/mL [facility] S. pneumoniae Albanian type 14 IgG IA (S) [Mass/Vol] 3.5 ug/mL 1.3 - PINF ug/mL [facility] S. pneumoniae Albanian type 15B IgG IA (S) [Mass/Vol] <0.2 Low 1.3 - PINF ug/mL [facility] S. pneumoniae Albanian type 17F IgG IA (S) [Mass/Vol] 0.2 ug/mL Low 1.3 - PINF ug/mL [facility] S. pneumoniae Albanian type 18C IgG IA (S) [Mass/Vol] <0.1 Low 1.3 - PINF ug/mL [facility] S. pneumoniae Albanian type 19A IgG IA (S) [Mass/Vol] 9.2 ug/mL 1.3 - PINF ug/mL [facility] S. pneumoniae Albanian type 19F IgG IA (S) [Mass/Vol] 1.0 ug/mL Low 1.3 - PINF ug/mL [facility] S. pneumoniae Albanian type 2 IgG IA (S) [Mass/Vol] <0.2 Low 1.3 - PINF ug/mL [facility] S. pneumoniae Albanian type 20A IgG IA (S) [Mass/Vol] <0.2 Low 1.3 - PINF ug/mL [facility] S. pneumoniae Albanian type 22F IgG IA (S) [Mass/Vol] 0.3 ug/mL Low 1.3 - PINF ug/mL [facility] S. pneumoniae Albanian type 23F IgG IA (S) [Mass/Vol] 3.1 ug/mL 1.3 - PINF ug/mL [facility] S. pneumoniae Albanian type 3 IgG IA (S) [Mass/Vol] <0.1 Low 1.3 - PINF ug/mL [facility] S. pneumoniae Albanian type 33F IgG IA (S) [Mass/Vol] 1.0 ug/mL Low 1.3 - PINF ug/mL [facility] Comment on above: *This test was devel oped and its performance characteristics determined by [employer]. It has not been cleared or approved by the U.S. Food and Drug Administration. FLAG Interpretation: A = Abnormal, H = High, L = Low S. pneumoniae Albanian type 4 IgG IA (S) [Mass/Vol] <0.1 Low 1.3 - PINF ug/mL [facility] S. pneumoniae Albanian type 5 IgG IA (S) [Mass/Vol] 0.4 ug/mL Low 1.3 - PINF ug/mL [facility] S. pneumoniae Albanian type 6B IgG IA (S) [Mass/Vol] 1.2 ug/mL Low 1.3 - PINF ug/mL [facility] S. pneumoniae Albanian type 7F IgG IA (S) [Mass/Vol] 5.2 ug/mL 1.3 - PINF ug/mL [facility] S. pneumoniae Albanian type 8 IgG IA (S) [Mass/Vol] 2.7 ug/mL 1.3 - PINF ug/mL [facility] S. pneumoniae Albanian type 9N IgG IA (S) [Mass/Vol] <0.1 Low 1.3 - PINF ug/mL [facility] S. pneumoniae Albanian type 9V IgG IA (S) [Mass/Vol] 1.4 ug/mL 1.3 - PINF ug/mL [facility] Performed at: 02 - [employer] [address], [facility] [address], [place] [id number] Electrotyper Apprentice: ENEDINA Calderón PhDBC, Phone: [phone] [facility] Family Medicine Office/Clini c Noteon 03-10-2024 [...] for her left shoulder Doing this at [facility] History of Present Illness pt presents for [...] 1-2 t (more content not included)... Normal [facility] Comment on above: Result Comment: Elec tronically Signed By: Berry Canales.dusty\Date and Time Signed: 03/10/24 15:19 EDT Renea 02-27-2024 RAUL Telephone (JULI) CAROLINA GUTIERREZ ([id number]) 1960 F Date Time Provider Department 02/27/24 STEVO NEFF During your visit today, we recorded the following information about you: Mary LayneCHRIS 02/27/2024 2:13 PM Signed PA for [facility] submitted via Cover My Meds. Perez: [id number] Your request has been approved PA Case: [id number], Status: Approved, Coverage Starts on: 02/27/2024 12:00:00 AM, Coverage Ends on: 02/26/2025 12:00:00 AM. Allergies As of Date: 02/27/2024 Noted Allergy Reaction KEFLEX (CEPHALEXIN) 10/18/2004 PENICILLINS 01/05/2004 Date Reviewed: 12/20/2023 Reviewed by: Louis Cates APRN.QUALITY ASSURANCE SUPERVISOR - Fully Assessed Reason for Visit: Medication [...] fluticasone (FLONASE) 50 mcg/actuation nasal spray 1 [place] daily at bedtime. in each nostril. - [...] Status:Closed by MARY LAYNE on 02/27/24 Normal [facility] Heart and Vascular Office/Cl inic Noteon 02-06-2024 [...] recently seen by him during hospitalization at [place] after syncopal episode at home. Her ECG [...] Left lowe (more content not included)... Normal [facility] Comment on above: Result Comment: Elec tronically Signed By: Oswald Curry PA-C\.br\Date and Time Signed: 02/06/24 16:22 EDT\.br\Electronically Co-Signed By: Marilyn Neves\.br\Date and Time Co-Signed: 02/06/24 16:18 EDT [facility] 02-05-20 [facility] Case Information Case Priority: None Programs: -- Referral Source: Manager Unix Referral Reason: Care coordination Case Type: Transition [...] wit pain. Patient completed valacyclovir RX from [facility] care. Patient declined need for OV at this time. States she will advise (more content not included)... Normal [facility] Coding Queryon 02-03-2024 Coding Query Coding Query [...] a procedure; Stitch abscess following a procedure) [facility] Coding Query Coding Query - From: Beatriz [...] , Kenney Sepsis following a procedure Normal [facility] Ambulatory Visit Summaryon 0 01-29-2024 Ambulatory [...] mg DR Tab) potassium chloride (Potassium Chloride (Xel-Ojft-Fxu M20) 20 mEq oral tablet, extended release) [...] Someone Will Contact You Regarding These Appointments [facility] [place] Ambulatory Referral, Patient choice/referral by family/friend, Allergy & Immunology, [facility]-Wellness Assistant, 01/29/24 14:31:00 EDT, Chronically ill Non-smoker BMI [...] 90 Days Unchanged potassium chloride (Potassium Chloride (Xpi-Stkz-Oez M20) 20 mEq oral tablet, extended release) [...] of 4 (more content not included)... Normal [facility] Family Medicine Office/Clini c Noteon 01-29-2024 Family Medicine Office/Clinic Note Family Medicine Office/Clinic Note HPI Staff Carolina is a 63 year old female presenting with ER followup: Hospital: [facility] Visit date: 01/19-01/23 Symptoms the patient presented with: right leg cellulitis Current concerns: She is asking for blood clot shot ?? (to prevent) Echo done was done, vein US right leg was done EKG was done also [facility] 01/27/24 CC; Shingles on left side on [...] send referral for further work up. Ordered: [facility] External Ambulatory Referral 3. Shingles rash (B02.9: Zoster without complications) shingles rash on left abdomen and back is scabbed over no oozing noted 4. Non-smoker (Z78.9: Other specified health status) continue not smoking Ordered: [facility] External Ambulatory Referral 5. BMI 39.0-39.9,adult (Z68.39: Body mass index [BMI] 39.0-39.9, adult) bmi education given Ordered: [facility] External Ambulatory Referral Orders: tramadol, 50 mg = 1 tab(s), Oral, q12hr, PRN for pain, # 30 tab(s), Refills(s) 0, Pharmacy: [facility]/pharmacy #[id number], 149, cm, 01/20/24 22:07:00 EDT, Height/Length [...] tab(s), Oral, Daily, 3 refills Potassium Chloride (Qdw-Emgp-Mpe M20) 20 mEq oral tablet, extended release, 20 mEq= 1 tab(s), Oral, BID ProAir RespiClick 90 mcg/inh inhalation powder, 2 puff(s), Inhalation, q4hr, PRN, 11 refills Prolia, 60 (more content not included)... Normal [facility] Comment on above: Result Comment: Elec tronically Signed By: Berry Canales\.br\Date and Time Signed: 01/29/24 14:41 EDT Provider Letteron 01-29-2024 Provider Letter Provider Letter January 29, 2024 CAROLINA GUTIERREZ [address] [place] [id number] : 1960 To Whom It May Concern, Please excuse above patient from work, due to medical, if you have any questions please call my office Date of Illness: From: _01-13-24 To: _02-04-24 May Return to Work On: 02-05-24 Restrictions: _ Comments: _ Sincerely, [place] [address] [facility] Ambulatory Visit Summaryon 0 01-27-2024 Ambulatory Visit [...] mg DR Tab) potassium chloride (Potassium Chloride (Kpg-Cebg-Chx M20) 20 mEq oral tablet, extended release) [...] 2:00 PM EDT With: Berry Canales Where: [place] [id number]- Medications What How Much When Why Instructions New valacyclovir (valacyclovir 1 g Tab) 1 Tablets By Mouth Every 8 hours Shingles Duration: 7 Days Pickup at [facility]/pharmacy #[id number] Unchanged albuterol (ProAir RespiClick 90 mcg/ inh [...] 90 Days Unchanged potassium chloride (Potassium Chloride (Iff-Xkhz-Upi M20) 20 mEq oral tablet, extended release) [...] for Pain Cellulitis Skin cancer Pharmacy Information [facility]/pharmacy #[id number]: [address] [place], [place] [id number] [phone] Allergies Cefzil (Unknown) Eliquis (Unknown) Keflex (Hives) [...] p (more content not included)... Normal [facility] Family Medicine Office/Clini c Noteon 01-27-2024 Family [...] with voice recognition software. Occasional wrong-word or ?whfbv-e-ahgv? substitutions may have occurred due to the [...] Chronic sinusiti (more content not included)... Normal [facility] Comment on above: Result Comment: Elec tronically Signed By: Giovanny SAMANO, Albaro Iverson\.br\Date and Time Signed: 01/27/24 16:01 EDT [facility] 01-27-20 [facility] Case Information Case Priority: None Programs: -- Referral Source: Manager Unix Referral Reason: Care coordination Case Type: Transition [...] tab(s), Oral, Daily, 3 refills Potassium Chloride (Noi-Ayud-Cnu M20) 20 mEq oral tablet, extended release, [...] for yourself? (more content not included)... Normal [facility] General Message Officeon General Message Office General Message Office --- --- --- --- --- --- --- --- --- From: Sharron DirectInbox To: CAROLINA GUTIERREZ Sent: 01/25/24 02:30:27 AM EDT Subject: Discharge Summary Ready to View A summary regarding your recent visit is available in the Documents section of your health record. [facility] CHEMISTRYOrdered By: Lab ROP User on 01-24-2024 Glucose [Mass/Vol] 108 mg/dL High 55 - 99 mg/dL FT C POC Subsection Comment on above: Result Comment: Sugar WALKER POC Device SN [id number] 1 Invalid Interpretation Code [facility] POC Subsection POC User ID [id number] 1 Invalid Interpretation Code [facility] POC Subsection POC Username ANNA TOM Invalid Interpretation Code [facility] POC Subsection CHEMISTRYOrdered By: Clair Thrasher on [...] 12-30 Glucose [Mass/Vol] 108 mg/dL High 55-99 [facility] Comment on above: Result Comment: Sugar WALKER Performed By: #### 2 [id number] ####[facility] [id number] [place] [address] HEMATOLOGYOrdered By: SYSTEM SYSTEM on 01-24-2024 Basophils/100 [...] 01-24-2024 Inpatient Clinical Summary Inpatient Clinical Summary [place] [id number] Clinical Summary Person Information: Name: CAROLINA GUTIERREZ Age: 63 Years : 1960 Sex: Female PCP: Berry Canales Marital Status: Phone: [phone] Race: White Ethnicity: Non- or Language: Macanese Visit Id: Visit Reason: Chills; Nausea; Lower leg pain-swelling; CHILLS,NAUSEA, CELLULIST ON RT LEG Speciality: Acuity: Enc Type: Inpatient Med Service: Medical Arrival: 01/20/2024 21:45:43 Discharge: Dispo Type: Admitted as IP to this Hosp Address: [address] [place] [id number] Provider Notes: Diagnosis: 1:Sepsis; 2:Cellulitis; 3:Leukocytosis; 4:Asthma; [...] Days. Refills: 3. potassium chloride (Potassium Chloride (Jgl-Eizm-Amc M20) 20 mEq oral tablet, extended release) [...] mcg/inh inhalati (more content not included)... Normal [facility] Inpatient Patient Summaryon 01-24-2024 Inpatient Patient Summary Inpatient Patient Summary [place] [id number] Patient Discharge Instructions PERSON INFORMATION Name: CAROLINA [...] DURING YOUR HOSPITAL STAY New Medications [id number], [address], [place] [id number], [phone] tramadol (traMADOL 50 mg Tab) 1 Tablets By Mouth every 6 hours as needed Pain. Refills: 0. Last Dose: Next Dose: Medications to Continue Taking That Have Changed [id number], [address], [place] [id number], [phone] START: levofloxacin (Levaquin 750 mg Tab) 1 [...] Tablets By (more content not included)... Normal [facility] Inpatient Patient Summary Inpatient Patient Summary CAROLINA GUTIERREZ :1960 Visit Date:01/20/2024 Inpatient Discharge Instructions Your Care Team Admitting Physician - Halle HOUSTON DO Consulting Physician - Kayleen Vee, Louis Marcial MD, [facility]. Reason for Your Visit I have cellulitis [...] mg DR Tab) potassium chloride (Potassium Chloride (Liw-Kczc-Wdx M20) 20 mEq oral tablet, extended release) [...] 24 hours Duration: 7 Days Pickup at [facility]/pharmacy #[id number] 01/24 AM Unchanged albuterol (ProAir RespiClick 90 [...] 01/24 AM Unchanged potassium chloride (Potassium Chloride (Vyw-Blnx-Jja M20) 20 mEq oral tablet, extended release) 1 Tablets By Mouth 2 times a day 01/23 PM Unchanged predniSONE (predniSONE 20 mg Tab) 1 (more content not included)... Normal [facility] Interdisciplinary Note - Doug e Manageron 01-24-2024 Interdisciplinary Note - Brick Molder Hand Interdisciplinary Note - Brick Molder Hand CRM to room to discuss DC planning. Patient is awake, alert and oriented. Patient is from home with her spouse. He will transport at [place]. Patient verified PCP, DME and insurance. Patient [...] updates from Dr boyd at 10 AM [facility] accepted Normal [facility] Comment on above: Result Comment: Elec tronically Signed By: Consuelo Richards\.br\Date and Time Signed: 01/24/24 12:48 EDT CHEMISTRYOrdered By: Lab ROP User on 01-23-2024 Glucose [Mass/Vol] 181 mg/dL High 55 - 99 mg/dL FTM C POC Subsection Comment on above: Result Comment: Sugar muhammad RN/ POC Device SN [id number] 1 Invalid Interpretation Code FT POC Subsection POC User ID [id number] 1 Invalid Interpretation Code FT POC Subsection POC Username CONSTANTINO SCHMIDT Invalid Interpretation Code FT POC Subsection Glucose [Mass/Vol] 144 mg/dL High 55 - 99 mg/dL FTM C POC Subsection Comment on above: Result Comment: Sugar muhammad RN/ POC Device SN [id number] 1 Invalid Interpretation Code FT POC Subsection POC User ID [id number] 1 Invalid Interpretation Code FT POC Subsection [...] Basophils/100 WBC (Bld) 0.2 % Normal 0.0-2.0 [facility] Comment on above: Performed By: #### 2 [id number] #### [facility] [address] [place] [address] Basophils/Leukocytes Auto (Bld) [Pure # fraction] 0.0 E9/L Normal 0.0-0.2 [facility] Comment on above: Performed By: #### 2 [id number] #### [facility] [address] [place] [address] Eosinophils (Bld) [#/Vol] 0.1 E9/L Normal 0.0-0.5 [facility] Comment on above: Performed By: #### 2 123310 #### [facility] [address] [place] [address] Eosinophils/100 WBC (Bld) 0.4 % Normal 0.0-8.0 [facility] Comment on above: Performed By: #### 2 032504 #### [facility] [address] [place] [address] Erythrocyte distribution width (RBC) [Ratio] 17.7 % High 10.9-14.2 [facility] Comment on above: Performed By: #### 2 976756 #### [facility] [address] [place] [address] Hematocrit (Bld) [Volume fraction] 32.9 % Low 34.0-46.0 [facility] Comment on above: Performed By: #### 2 149546 #### [facility] [address] [place] [address] Hemoglobin (Bld) [Mass/Vol] 11.0 g/dL Low 12.0-16.0 [facility] Comment on above: Performed By: #### 2 [id number] #### [facility] [address] [place] [address] Lymphocytes (Bld) [#/Vol] 0.7 E9/L Low 1.0-4.0 [facility] Comment on above: Performed By: #### 2 375852 #### [facility] [address] [place] [address] Lymphocytes/100 WBC (Bld) 5.4 % Low 14.0-50.0 [facility] Comment on above: Performed By: #### 2 504363 #### [facility] [address] [place] [address] MCH (RBC) [Entitic mass] 29.5 pg Normal 27.0-34.0 [facility] Comment on above: Performed By: #### 2 082655 #### [facility] [address] [place] [address] MCHC (RBC) [Mass/Vol] 33.3 g/dL Normal 31.4-36.0 [facility] Comment on above: Performed By: #### 2 741313 #### [facility] [address] [place] [address] MCV (RBC) [Entitic vol] 88.5 fL Normal 80.0-100.0 [facility] Comment on above: Performed By: #### 2 725125 #### [facility] [address] [place] [address] [place] [address] Monocytes (Bld) [#/Vol] 0.5 E9/L Normal 0.2-1.0 [facility] Comment on above: Performed By: #### 2 494971 #### [facility] [address] [place] [address] Neutrophils (Bld) [#/Vol] 12.5 E9/L High 2.0-7.5 [facility] Comment on above: Performed By: #### 2 965086 #### [facility] [address] [place] [address] Neutrophils/100 WBC (Bld) 90.6 % High 36.0-75.0 [facility] Comment on above: Performed By: #### 2 527163 #### [facility] [address] [place] [address] Platelet 142.0 E9/L Low 150.0-500.0 [facility] Comment on above: Performed By: #### 2 652003 #### [facility] [address] [place] [address] Platelet mean volume (Bld) [Entitic vol] 7.4 fL Normal 6.4-10.8 [facility] Comment on above: Performed By: #### 2 445246 #### [facility] [address] [place] [address] RBC (Bld) [#/Vol] 3.7 E12/L Low 4.3-5.9 [facility] Comment on above: Performed By: #### 2 480529 #### [facility] [address] [place] [address] WBC corrected for nucl RBC Auto (Bld) [#/Vol] 13.8 E9/L High 4.0-11.0 [facility] Comment on above: Performed By: #### 2 674942 #### [facility] [address] [place] [address] Capillary Glucose POCon 12-30 Glucose [Mass/Vol] 126 mg/dL High 55-99 [facility] Comment on above: Result Comment: Sugar muhammad RN/ Performed By: #### 2 [id number] #### [facility] [address] [place] [address] HEMATOLOGYOrdered By: SYSTEM SYSTEM on 01-22-2024 Basophils/100 [...] Doug e Manageron 01-22-2024 Interdisciplinary Note - Brick Molder Hand Interdisciplinary Note - Brick Molder Hand Patient is awake and alert in bed, await rounds with Dr. Boyd. Pt is from home with spouse and he will transport at [place]. Pt declines any concerns or DC needs. Pending Vascular consult, CRM following . PCP verified and Insurance information reviewed and DME discussed. Contact information provided and white board updated Normal [facility] Comment on above: Result Comment: Elec tronically Signed By: Shannan BRIGHT, Ashlee\.dusty\Date and Time Signed: 01/22/24 08:48 EDT CBC w/Indiceson 01-21-2024 Erythrocyte distribution width (RBC) [Ratio] 17.5 % High 10.9-14.2 [facility] Comment on above: Performed By: #### 2 [id number] #### [facility] [address] [place] [address] Hematocrit (Bld) [Volume fraction] 32.7 % Low 34.0-46.0 [facility] Comment on above: Performed By: #### 2 082602 #### [facility] [address] [place] [address] Hemoglobin (Bld) [Mass/Vol] 10.9 g/dL Low 12.0-16.0 [facility] Comment on above: Performed By: #### 2 765506 #### [facility] [address] [place] [address] MCH (RBC) [Entitic mass] 29.6 pg Normal 27.0-34.0 [facility] Comment on above: Performed By: #### 2 021355 #### [facility] [address] [place] [address] MCHC (RBC) [Mass/Vol] 33.3 g/dL Normal 31.4-36.0 [facility] Comment on above: Performed By: #### 2 913446 #### [facility] [address] [place] [address] MCV (RBC) [Entitic vol] 88.9 fL Normal 80.0-100.0 [facility] Comment on above: Performed By: #### 2 144945 #### [facility] [address] [place] [address] Platelet 140.0 E9/L Low 150.0-500.0 [facility] Comment on above: Performed By: #### 2 516825 #### [facility] [address] [place] [address] Platelet mean volume (Bld) [Entitic vol] 7.8 fL Normal 6.4-10.8 [facility] Comment on above: Performed By: #### 2 316734 #### [facility] [address] [place] [address] RBC (Bld) [#/Vol] 3.7 E12/L Low 4.3-5.9 [facility] Comment on above: Performed By: #### 2 723499 #### [facility] [address] [place] [address] RBC size Nom (Bld) NORMAL Invalid Interpretation Code [facility] Comment on above: Performed By: #### 2 580743 #### [facility] [address] [place] [address] WBC corrected for nucl RBC Auto (Bld) [#/Vol] 16.6 E9/L High 4.0-11.0 [facility] Comment on above: Performed By: #### 2 133061 #### [facility] [address] [place] [address] CHEMISTRYOrdered By: SYSTEM SYSTEM on 01-21-2024 Lactic Acid Lvl 2.6 mmol/L High 0.5 - 2.2 mmol/L Rem isol Chem Capillary Glucose POCon 12-30 Glucose [Mass/Vol] 239 mg/dL High 55-99 [facility] Comment on above: Result Comment: Sugar WALKER Performed By: #### 2 [id number] #### [facility] [address] [place] [address] Glucose [Mass/Vol] 105 mg/dL High 55-99 [facility] Comment on above: Result Comment: Sugar WALKER Performed By: #### 2 [id number] #### [facility] [address] [place] [address] Glucose [Mass/Vol] 126 mg/dL High -[address] [place] [address] Comment on above: Result Comment: Sugar WALKER Performed By: #### 2 [id number] #### [facility] [address] [place] [address] Glucose [Mass/Vol] 140 mg/dL High 55-[address] [place] [address] Comment on above: Result Comment: Sugar WALKER Performed By: #### 2 [id number] #### [facility] [address] [place] [address] ED Clinical Summaryon 2023 ED Clinical Summary ED Clinical Summary [address] [address] ED Clinical Summary Person Information Name: CAROLINA GUTIERREZ [facility] Age: 63 Years : 1960 Sex: Female Language: Macanese PCP: Berry Canales Marital Status: Phone: [phone] Visit Id: Visit Reason: Chills; Nausea; Lower leg pain-swelling; CHILLS,NAUSEA, CELLULIST ON RT LEG Speciality: Acuity: 2 Enc Type: Inpatient Med Service: Emergency Arrival: 01/20/2024 21:45:43 Discharge: LOS: 000 04:37 Checkin: 01/20/2024 21:45:43 Checkout: 01/21/2024 02:22:55 Dispo Type: Admitted as IP to this [facility] EVENTS: Event Name Event Status Request Date/Time [...] Admin Complete 01/21/2024 01:26:54 01/21/2024 01:33:10 ADDRESS: [address] [place] [phone] PHYS DOC NOTES: MEDICAL INFORMATION: Prescriptions Given: [...] Days. Refills: 3. potassium chloride (Potassium Chloride (Dpt-Mzft-Ane M20) 20 mEq oral tablet, extended release) 1 Tablets By Mouth 2 times a day. Refills: 0. predniSONE (predniSONE 20 mg Tab) 1 Tablets By Mouth As Directed. Take two tabs for 4 days, then one and half tabs for 4 days, then one tab for 4 days then half tab for 4 days then stop. Refi (more content not included)... [facility] ED Note-Physicianon 01-21-20 ED Note-Physician ED [...] and Complexity of Problems Differential Diagnosis: [] [facility] Data External documents reviewed: [] My [...] of pulmo (more content not included)... [facility] Comment on above: Result Comment: Elec tronically Signed By: Shalom [facility] DO\.br\Date and Time Signed: 01/21/24 01:26 EDT ED Patient Education Noteon 01-21-2024 ED Patient Education Note ED Patient Education Note [facility] ED Patient Summaryon 024 ED Patient Summary ED Patient Summary [place] [id number] Patient Discharge Instructions Person Information Name: CAROLINA GUTIERREZ Age: 63 Years Arrival Date: 01/20/2024 21:45:43 Discharge Diagnosis: Cellulitis; Sinus tachycardia Primary Care Physician: Berry Canales Provider Information Primary Provider: Shalom [facility] DO Advanced Repairer Finished Metal:None The exam and treatment you received in the Emergency Department were for an urgent problem and are not intended as complete care. It is important that you follow up with a doctor, nurse practitioner, or physician?s dental assistant instructor for ongoing care. If your symptoms become [...] opioids can be used to help relieve nerlvgle-se-nhwkzs pain and are often prescribed following a [...] be struggling with addiction, tell your health pet care worker and ask for guidance or call [facility]?S National Helpline at 7-174-154-LTQO. i Source: [place] Department of Health and Human Services/Center for Disease Control & Prevention [facility] Medications Given: Medication (more content not included)... [facility] HEMATOLOGYOrdered By: SYSTEM SYSTEM on 01-21-2024 RBC size Nom (Bld) NORMAL *NA* (01/21/24 6:11 AM) Invalid Interpretation Code Remisol Heme Inpatient Clinical Summaryon 01-21-2024 Inpatient Clinical Summary Inpatient Clinical Summary [address] [address] Clinical Summary Person Information: Name: CAROLINA GUTIERREZ Age: 63 Years : 1960 Sex: Female PCP: Berry Canales Marital Status: Phone: [phone] Race: White Ethnicity: Non- or Language: Macanese Visit Id: Visit Reason: Chills; Nausea; Lower leg pain-swelling; CHILLS,NAUSEA, CELLULIST ON RT LEG Speciality: Acuity: Enc Type: Inpatient Med Service: Medical Arrival: 01/20/2024 21:45:43 Discharge: Dispo Type: Admitted as IP to this Hosp Address: [address] [place] [phone] Provider Notes: Diagnosis: 1:Sepsis; 2:Cellulitis; 3:Leukocytosis; 4:Asthma; [...] Days. Refills: 3. potassium chloride (Potassium Chloride (Mdz-Avkz-Loy M20) 20 mEq oral tablet, extended release) [...] tablet, exte (more content not included)... [facility] Inpatient Patient Summaryon 01-21-2024 Inpatient Patient Summary Inpatient Patient Summary [place] [id number] Patient Discharge Instructions PERSON INFORMATION Name: CAROLINA [...] a nearby participating provider. Type Location Start [facility] 01/24/2024 8:00 AM 01/24/2024 8:15 AM Confirmed [facility] Follow Up [facility] 01/24/2024 10:15 AM 01/24/2024 10:30 [...] Dose: Next Dose: potassium chloride (Potassium Chloride (Rxa-Wqcr-Hnm M20) 20 mEq oral tablet, extended release) 1 Tablets By Mouth 2 times a day. Refills: 0. Last Dose: Next Dose: (more content not included)... [facility] Interdisciplinary Note - Doug e Manageron 01-21-2024 Interdisciplinary Note - Brick Molder Hand Interdisciplinary Note - Brick Molder Hand Patient is awake and alert in bed, previously rounded with Dr. Castañeda. Pt is from home with spouse and he will transport at [place]. Pt is aware of inpatient status, pending ID and Vascular to see. Pt declines any concerns or DC needs. CRM following . PCP verified and insurance information reviewed and DME discussed. Contact information provided and white board updated. [facility] Comment on above: Result Comment: Elec tronically Signed By: Shannan BRIGHT, Ashlee\.dusty\Date and Time Signed: 01/21/24 08:43 EDT Lactic Acidon 01-21-2024 Lactic Acid Lvl 2.6 mmol/L High 0.5-2.2 [facility] Comment on above: Order Comment: Order added by EKS Rule. (FT_LACTIC_ACID_REFLEX) Adds reflex Lactic Acid 4 hours after initial if result is greater than or equal to 2.0. Performed By: #### 2 [id number] #### [facility] [address] [place] [address] UA with Cult Rflxon 01-21-20 Bilirubin Ql (U) Negative Normal Negative [facility] Comment on above: Performed By: #### 4 [id number] #### [facility] [address] [place] [address] Clarity (U) Clear Normal Clear [facility] Comment on above: Performed By: #### 4 [id number] #### [facility] [address] [place] [address] Color (U) Yellow Normal Yellow [facility] Comment on above: Result Comment: Micr oscopic readings are only performed on those samples that meet specific criteria set forth by [facility]. Performed By: #### 4 [id number] #### [facility] [address] [place] [address] Glucose Ql (U) Trace Abnormal Negative [facility] Comment on above: Performed By: #### 4 [id number] #### [facility] [address] [place] [address] Hemoglobin Auto test strip (U) [Mass/Vol] Negative Normal Negative [facility] Comment on above: Performed By: #### 4 [id number] #### [facility] [address] [place] [address] Ketones Auto test strip Ql (U) Trace Abnormal Negative [facility] Comment on above: Performed By: #### 4 [id number] #### [facility] [address] [place] [address] Leukocyte esterase Auto test strip Ql (U) Negative Normal Negative [facility] Comment on above: Performed By: #### 4 [id number] #### [facility] [address] [place] [address] Nitrite Auto test strip Ql (U) Negative Normal Negative [facility] Comment on above: Performed By: #### 4 [id number] #### [facility] [address] [place] [address] pH (U) 5.0 [pH] Invalid Interpretation Code 5.0-9.0 [facility] Comment on above: Performed By: #### 4 [id number] #### [facility] [address] [place] [address] Protein Ql (U) Negative Normal Negative [facility] Comment on above: Performed By: #### 4 [id number] #### [facility] [address] [place] [address] Specific gravity (U) [Rel density] 1.023 Invalid Interpretation Code 1.005-1.030 [facility] Comment on above: Performed By: #### 4 [id number] #### [facility] [address] [place] [address] Urobilinogen (U) [Mass/Vol] Negative Normal Negative [facility] Comment on above: Performed By: #### 4 [id number] #### [facility] [address] [place] [address] URINALYSISOrdered By: SYSTEM SYSTEM on 01-21-2024 Bilirubin Ql (U) Negative Normal Negativemg/dL [facility] UA Auto SS Clarity (U) Clear (01/21/24 1:31 AM) Normal Clear [facility] UA Auto SS Color (U) Yellow 1 (01/21/24 1:31 AM) Normal Yellow [facility] UA Auto SS Comment on above: Interpretive Data: M icroscopic readings are only performed on those samples that meet specific criteria set forth by [facility]. Glucose Ql (U) Trace mg/dL Invalid Interpretation Code Negativemg/dL [facility] UA Auto SS Hemoglobin Auto test strip (U) [Mass/Vol] Negative Normal Negativemg/dL [facility] UA Aut o SS Ketones Auto test strip Ql (U) Trace mg/dL Invalid Interpretation Code Negativemg/dL [facility] UA Auto SS Leukocyte esterase Auto test strip Ql (U) Negative Normal NegativeLeu/uL [facility] UA Auto SS Nitrite Auto test strip Ql (U) Negative Normal Negativemg/dL [facility] UA Auto SS pH (U) 5.0 *NA* (01/21/24 1:31 AM) Invalid Interpretation Code 5.0 - 9.0 [facility] UA Auto SS Protein Ql (U) Negative Normal Negativemg/dL [facility] UA Auto SS Specific gravity (U) [Rel density] 1.023 *NA* (01/21/24 1:31 AM) Invalid Interpretation Code 1.005 - 1.030 [facility] UA Auto SS Urobilinogen (U) [Mass/Vol] Negative Normal Negativemg/dL [facility] UA Auto SS URINALYSISOrdered By: Lia [facility] on 01-21-2024 UA Spec Desc Clean Catch (01/21/24 1:31 AM) Normal [facility] UA Auto SS US Extremity Non-Vascular Li [...] MD Transcribed by: FRANCISCA Technologist: PATRICIO Lama [facility] XR Chest Single Viewon 01-20 XR [...] mGy = n/a DAP = n/a [facility] CBC w/ Auto Diffon 4 Basophils/100 WBC (Bld) 0.2 % Normal 0.0-2.0 [facility] Comment on above: Performed By: #### 2 [id number] #### [facility] [address] [place] [address] Basophils/Leukocytes Auto (Bld) [Pure # fraction] 0.0 E9/L Normal 0.0-0.2 [facility] Comment on above: Performed By: #### 2 [id number] #### [facility] [address] [place] [address] Eosinophils (Bld) [#/Vol] 0.0 E9/L Normal 0.0-0.5 [facility] Comment on above: Performed By: #### 2 [id number] #### [facility] [address] [place] [address] Eosinophils/100 WBC (Bld) 0.2 % Normal 0.0-8.0 [facility] Comment on above: Performed By: #### 2 [id number] #### [facility] [address] [place] [address] Erythrocyte distribution width (RBC) [Ratio] 17.9 % High 10.9-14.2 [facility] Comment on above: Performed By: #### 2 [id number] #### [facility] [address] [place] [address] Hematocrit (Bld) [Volume fraction] 39.6 % Normal 34.0-46.0 [facility] Comment on above: Performed By: #### 2 [id number] #### [facility] [address] [place] [address] Hemoglobin (Bld) [Mass/Vol] 13.4 g/dL Normal 12.0-16.0 [facility] Comment on above: Performed By: #### 2 [id number] #### [facility] [address] [place] [address] Lymphocytes (Bld) [#/Vol] 0.7 E9/L Low 1.0-4.0 [facility] Comment on above: Performed By: #### 2 [id number] #### [facility] [address] [place] [address] Lymphocytes/100 WBC (Bld) 5.0 % Low 14.0-50.0 [facility] Comment on above: Performed By: #### 2 [id number] #### [facility] [address] [place] [address] MCH (RBC) [Entitic mass] 29.9 pg Normal 27.0-34.0 [facility] Comment on above: Performed By: #### 2 [id number] #### [facility] [address] [place] [address] MCHC (RBC) [Mass/Vol] 33.7 g/dL Normal 31.4-36.0 [facility] Comment on above: Performed By: #### 2 [id number] #### [facility] [address] [place] [address] MCV (RBC) [Entitic vol] 88.7 fL Normal 80.0-100.0 [facility] Comment on above: Performed By: #### 2 [id number] #### [facility] [address] [place] [address] Monocytes (Bld) [#/Vol] 0.3 E9/L Normal 0.2-1.0 [facility] Comment on above: Performed By: #### 2 [id number] #### [facility] [address] [place] [address] Neutrophils (Bld) [#/Vol] 13.8 E9/L High 2.0-7.5 [facility] Comment on above: Performed By: #### 2 [id number] #### [facility] [address] [place] [address] Neutrophils/100 WBC (Bld) 92.6 % High 36.0-75.0 [facility] Comment on above: Performed By: #### 2 [id number] #### [facility] [address] [place] [address] Platelet 151.0 E9/L Normal 150.0-500.0 [facility] Comment on above: Performed By: #### 2 [id number] #### [facility] [address] [place] [address] Platelet mean volume (Bld) [Entitic vol] 9.1 fL Normal 6.4-10.8 [facility] Comment on above: Performed By: #### 2 768958 #### [facility] [address] [place] [address] RBC (Bld) [#/Vol] 4.5 E12/L Normal 4.3-5.9 [facility] Comment on above: Performed By: #### 2 [id number] #### [facility] [address] [place] [address] WBC corrected for nucl RBC Auto (Bld) [#/Vol] 14.9 E9/L High 4.0-11.0 [facility] Comment on above: Performed By: #### 2 [id number] #### [facility] [address] [place] [address] CHEMISTRYOrdered By: SYSTEM SYSTEM on 01-20-2024 Albumin [...] 01-20-2024 Albumin [Mass/Vol] 3.5 g/dL Normal 3.3-5.0 [facility] Comment on above: Performed By: #### 2 [id number] #### [facility] [address] [place] [address] Albumin/Globulin (S) [Mass conc ratio] 1.3 Normal 1.1-2.2 [facility] Comment on above: Performed By: #### 2 [id number] #### [facility] [address] [place] [address] ALP [Catalytic activity/Vol] 64 Int._Unit/L Normal 21-98 [facility] Comment on above: Performed By: #### 2 138278 #### [facility] [address] [place] [address] ALT No additional P-5'-P [Catalytic activity/Vol] 26 Int._Unit/L Normal 6-46 [facility] Comment on above: Performed By: #### 2 [id number] #### [facility] [address] [place] [address] Anion gap [Moles/Vol] 15 mmol/L Normal 6-16 [facility] Comment on above: Performed By: #### 2 739084 #### [facility] [address] [place] [address] AST [Catalytic activity/Vol] 45 Int._Unit/L High 5-43 [facility] Comment on above: Performed By: #### 2 139384 #### [facility] [address] [place] [address] Bilirubin [Mass/Vol] 1.1 mg/dL Normal 0.0-1.1 [facility] Comment on above: Performed By: #### 2 259307 #### [facility] [address] [place] [address] Calcium [Mass/Vol] 8.4 mg/dL Low 8.9-11.1 [facility] Comment on above: Performed By: #### 2 006935 #### [facility] [address] [place] [address] Chloride [Moles/Vol] 104 mmol/L Normal 101-111 [facility] Comment on above: Performed By: #### 2 346359 #### [facility] [address] [place] [address] CO2 [Moles/Vol] 23 mmol/L Normal 21-31 [facility] Comment on above: Performed By: #### 2 179729 #### [facility] [address] [place] [address] Creatinine [Mass/Vol] 0.6 mg/dL Normal 0.5-1.3 [facility] Comment on above: Performed By: #### 2 [id number] #### [facility] [address] [place] [address] Globulin (S) [Mass/Vol] 2.6 g/dL Normal 1.4-4.0 [facility] Comment on above: Performed By: #### 2 [id number] #### [facility] [address] [place] [address] Glucose [Mass/Vol] 179 mg/dL Normal 55-199 [facility] Comment on above: Performed By: #### 2 [id number] #### [facility] [address] [place] [address] Potassium [Moles/Vol] 5.0 mmol/L Normal 3.5-5.3 [facility] Comment on above: Performed By: #### 2 [id number] #### [facility] [address] [place] [address] Protein [Mass/Vol] 6.1 g/dL Normal 6.0-7.8 [facility] Comment on above: Performed By: #### 2 088075 #### [facility] [address] [place] [address] Sodium [Moles/Vol] 137 mmol/L Normal 135-145 [facility] Comment on above: Performed By: #### 2 [id number] #### [facility] [address] [place] [address] Urea nitrogen [Mass/Vol] 22 mg/dL High 5-21 [facility] Comment on above: Performed By: #### 2 301333 #### [facility] [address] [place] [address] Urea nitrogen/Creatinine [Mass ratio] 37 No Units High 10-20 [facility] Comment on above: Performed By: #### 2 [id number] #### [facility] [address] [place] [address] COAGULATIONOrdered By: Enedina Padgett on 01-20-2024 aPTT Coag (PPP) [Time] 20.4 s Low 25.1 - 36.5 second(s) [facility] Auto Coag Comment on above: Interpretive Data: [...] the same coagulation reagent and instrumentation as [facility]. Currently there are no coagulation studies available worldwide for children to 14 days, and no normal ranges. Heparin therapeutic range (represented by Anti-Factor Xa activity of 0.2 - 0.4 U/mL) corresponds to PTT of 56.6 - 109.0 sec. INR Coag (PPP) [Relative time] 0.90 {INR} Invalid Interpretation Code [facility] Coag Comment on above: Interpretive Data: I NR results are specifically intended to assess patients stabilized on long-term Anticoagulation therapy suggested INR s Less Intensive Anticoagulation 2.0 3.0 Conventional Range 3.0 4.5 PT Coag (PPP) [Time] 10.1 s Normal 9.4 - 1 2.5 second(s) [facility] Auto Coag Comment on above: Interpretive Data: [...] the same coagulation reagent and instrumentation as [facility]. Currently there are no coagulation studies available worldwide for children to 14 days, and no normal ranges. Lactic Acidon 01-20-2024 Lactic Acid Lvl 2.3 mmol/L High 0.5-2.2 [facility] Comment on above: Performed By: #### 2 [id number] #### [facility] [address] [place] [address] No Panel InformationOrdered By: ANGPROCESSSERVER MICROBIOLOGY on 01-20-2024 Blood Culture Charcoal No growth at 4 days. Final to follow at 7 days. [facility] PT & PTTon 01-20-2024 aPTT Coag (PPP) [Time] 20.4 second(s) Low 25.1-36.5 [facility] Comment on above: Result Comment: Para [...] the same coagulation reagent and instrumentation as [facility]. Currently there are no coagulation studies available worldwide for children to 14 days, and no normal ranges. Heparin therapeutic range (represented by Anti-Factor Xa activity of 0.2 - 0.4 U/mL) corresponds to PTT of 56.6 - 109.0 sec. Performed By: #### 1 [id number] #### [facility] [address] [place] [address] INR Coag (PPP) [Relative time] 0.90 {INR} Invalid Interpretation Code [facility] Comment on above: Result Comment: INR results are specifically intended to assess patients stabilized on long-term Anticoagulation therapy suggested INR?s ?Less Intensive Anticoagulation? 2.0 ? 3.0 Conventional Range 3.0 ? 4.5 Performed By: #### 1 [id number] #### [facility] [address] [place] [address] PT Coag (PPP) [Time] 10.1 second(s) Normal 9.4-12.5 [facility] Comment on above: Result Comment: 15 [...] the same coagulation reagent and instrumentation as [facility]. Currently there are no coagulation studies available worldwide for children to 14 days, and no normal ranges. Performed By: #### 1 [id number] #### [facility] [address] [place] [id number] Troponinon 01-20-2024 Troponin HS 7.00 pg/mL Low 10.10-27.10 [facility] Comment on above: Result Comment: The 95% CI (Confidence Interval) PPV (Positive Predictive Value) for myocardial infarction in females is 38 pg/mL, in males 51 pg/mL. The results should be used in conjunction with clinical conditions of myocardial infarction. (Access High Sensitivity Troponin I Instructions For Use, Vend, January 2018) Performed By: #### 2 [id number] #### [facility] [address] [place] [address] UA with Cult Rflxon 01-20-20 24 Type of Urine collection method Clean Catch Normal [facility] Comment on above: Performed By: #### 4 [id number] #### [facility] [address] [place] [address] eGFRon 01-20-2024 eGFR 100 mL/min/1.73 m2 Normal >=59 [facility] Comment on above: Order Comment: Order added by Discern Expert. Performed By: #### 1 [id number] #### [facility] [address] [place] [address] Ambulatory Visit Summaryon 0 01-15-2024 Ambulatory Visit [...] mg DR Tab) potassium chloride (Potassium Chloride (Ych-Nibw-Rdw M20) 20 mEq oral tablet, extended release) [...] EDT With: Maribeth HDZ, Sung Cornell Where: [facility] Family Medicine Office/Clini c Noteon 01-15-2024 Family Medicine Office/Clinic Note Family Medicine Office/Clinic Note HPI Staff Carolina is a 63 year old female presenting for [facility] hospital follow up TCM: Hospital: [facility] Admission date: 01/08/24 Discharge date: 01/11/24 Symptoms [...] of Present Illness pt presents today for [facility] follow up. Review of Systems [...] tab(s), Oral, Daily, 3 refills Potassium Chloride (Spl-Iggs-Gwx M20) 20 mEq oral tablet, extended release, [...] Daily W (more content not included)... [facility] Comment on above: Result Comment: Elec tronically Signed By: Berry Canales\.br\Date and Time Signed: 01/15/24 11:02 EDT [facility] 01-13-20 [facility] Case Information Case Priority: None Programs: -- Referral Source: [employer] Referral Reason: Care coordination Case Type: Transition [...] previously prescribed prednisone taper and Levaquin from [facility] D/C on 01/06 Have you filled the Rx's? yes Are you taking them as prescribed? yes Are you having difficulty eating or swallowing your pills? no Are you having any stomach upset, diarrhea or constipation? some diarrhea, 'not too bad' How are you sleeping? patient arrived at work prior to f/u question Are you having any pain? pa (more content not included)... [facility] Coding Queryon 01-12-2024 Coding Query Coding [...] excess calories (BMI 40 or greater) [facility] General Message Officeon [employer] Message Office General Message Office --- --- --- --- --- --- --- --- --- From: Sharron, DirectInbox To: CAROLINA GUTIERREZ Nigel Sent: 01/12/24 02:31:06 AM EDT Subject: Discharge Summary Ready to View A summary regarding your recent visit is available in the Documents section of your health record. [facility] CBC w/ Auto Diffon 4 Basophils/100 WBC (Bld) 0.6 % Normal 0.0-2.0 [facility] Comment on above: Performed By: #### 2 [id number] #### [facility] [address] [place] [address] Basophils/Leukocytes Auto (Bld) [Pure # fraction] 0.1 E9/L Normal 0.0-0.2 [facility] Comment on above: Performed By: #### 2 [id number] #### [facility] [address] [place] [address] Eosinophils (Bld) [#/Vol] 0.0 E9/L Normal 0.0-0.5 [facility] Comment on above: Performed By: #### 2 [id number] #### [facility] [address] [place] [address] Eosinophils/100 WBC (Bld) 0.0 % Normal 0.0-8.0 [facility] Comment on above: Performed By: #### 2 [id number] #### [facility] [address] [place] [address] Erythrocyte distribution width (RBC) [Ratio] 15.9 % High 10.9-14.2 [facility] Comment on above: Performed By: #### 2 192341 #### [facility] [address] [place] [address] Hematocrit (Bld) [Volume fraction] 34.1 % Normal 34.0-46.0 [facility] Comment on above: Performed By: #### 2 776610 #### [facility] [address] [place] [address] Hemoglobin (Bld) [Mass/Vol] 11.3 g/dL Low 12.0-16.0 [facility] Comment on above: Performed By: #### 2 [id number] #### [facility] [address] [place] [address] Lymphocytes (Bld) [#/Vol] 0.3 E9/L Low 1.0-4.0 [facility] Comment on above: Performed By: #### 2 337447 #### [facility] [address] [place] [address] Lymphocytes/100 WBC (Bld) 1.6 % Low 14.0-50.0 [facility] Comment on above: Performed By: #### 2 [id number] #### [facility] [address] [place] [address] MCH (RBC) [Entitic mass] 28.8 pg Normal 27.0-34.0 [facility] Comment on above: Performed By: #### 2 [id number] #### [facility] [address] [place] [address] MCHC (RBC) [Mass/Vol] 33.2 g/dL Normal 31.4-36.0 [facility] Comment on above: Performed By: #### 2 [id number] #### [facility] [address] [place] [address] MCV (RBC) [Entitic vol] 86.9 fL Normal 80.0-100.0 [facility] Comment on above: Performed By: #### 2 755887 #### [facility] [address] [place] [address] Monocytes (Bld) [#/Vol] 0.5 E9/L Normal 0.2-1.0 [facility] Comment on above: Performed By: #### 2 [id number] #### [facility] [address] [place] [address] Neutrophils (Bld) [#/Vol] 18.4 E9/L High 2.0-7.5 [facility] Comment on above: Performed By: #### 2 [id number] #### [facility] [address] [place] [address] Neutrophils/100 WBC (Bld) 95.1 % High 36.0-75.0 [facility] Comment on above: Performed By: #### 2 [id number] #### [facility] [address] [place] [address] Platelet 184.0 E9/L Normal 150.0-500.0 [facility] Comment on above: Performed By: #### 2 [id number] #### [facility] [address] [place] [address] Platelet mean volume (Bld) [Entitic vol] 7.5 fL Normal 6.4-10.8 [facility] Comment on above: Performed By: #### 2 [id number] #### [facility] [address] [place] [address] RBC (Bld) [#/Vol] 3.9 E12/L Low 4.3-5.9 [facility] Comment on above: Performed By: #### 2 097150 #### [facility] [address] [place] [address] WBC corrected for nucl RBC Auto (Bld) [#/Vol] 19.4 E9/L High 4.0-11.0 [facility] Comment on above: Result Comment: Merray pheral smear review performed. Performed By: #### 2 959802 #### [facility] [address] [place] [address] Discharge Note-Nursingon Discharge Note-Nursing Discharge Note-Nursing CAROLINA [...] 2:00 PM EDT With: Berry Canales Where: [facility] Cori Normal [facility] HEMATOLOGYOrdered By: SYSTEM SYSTEM on 01-11-2024 [...] 01-11-2024 Inpatient Clinical Summary Inpatient Clinical Summary [place] [address] Clinical Summary Person Information: Name: CAROLINA GUTIERREZ Age: 63 Years : 1960 Sex: Female PCP: Berry Canales Marital Status: Phone: [phone] Race: White Ethnicity: Non- or Language: Macanese Visit Id: Visit Reason: Diarrhea; Nausea and vomiting; Abdominal pain; NVD Speciality: Acuity: Enc Type: Inpatient Med Service: Medical Arrival: 01/08/2024 07:50:15 Discharge: Dispo Type: Admitted as IP to this Hosp Address: [address] [place] [phone] Provider Notes: Diagnosis: 3:Lactic acidosis Problems Active [...] Follow up: With: Address: When: Berrynuno Beth [address] [place], [place] [address] Business (1) 01/16/2024 2:00 PM Type Location Start [facility] Follow Up w/TCM [facility] 01/16/2024 2:00 PM 01/16/2024 2:40 PM Confirmed Patient Education Information: Normal [facility] Inpatient Patient Summaryon 01-11-2024 Inpatient Patient Summary Inpatient Patient Summary [address] [address] Patient Discharge Instructions PERSON INFORMATION Name: CAROLINA GUTIERREZ Date of : 1960 Current Date: 01/11/2024 09:11:29 PHYSICIANS Admitting Physician: Lalo Boyd DO Primary Care Physician: Berry Canales PCP Comment: Discharge Diagnosis: 3:Lactic acidosis Condition at Discharge: Stable CRAOLINA GUTIERREZ has been given the following list [...] Follow up: With: Address: When: Berry Beth [address] [place] [address] Business (1) 01/16/2024 2:00 PM In the event that this physician does not participate in your insurance network, please consult with your insurance company to find a nearby participating provider. Type Location [facility] Follow Up w/TCM [facility] 01/16/2024 2:00 PM 01/16/2024 2:40 PM Confirmed Comment: I, CAROLINA GUTIERREZ, have received the attached patient education materials/instructio ns and have verbalized understanding: Patient Signature Date Clinican/Nurse Signature Date HERE ARE THE MEDICATION CHANGES THAT OCCURRED DURING YOUR HOSPITAL STAY New Medications [id number], [address], [place] [id number], [phone] metronidazole (MetroNIDAZOLE 250 mg Tab) 1 Tablets [...] then s (more content not included)... [facility] BMPon 01-10-2024 Anion gap [Moles/Vol] 7 mmol/L Normal 6-16 [facility] Comment on above: Performed By: #### 2 [id number] #### [facility] [address] [place] [address] Calcium [Mass/Vol] 7.5 mg/dL Low 8.9-11.1 [facility] Comment on above: Performed By: #### 2 901673 #### [facility] [address] [place] [address] Chloride [Moles/Vol] 102 mmol/L Normal 101-111 [facility] Comment on above: Performed By: #### 2 660729 #### [facility] [address] [place] [address] CO2 [Moles/Vol] 30 mmol/L Normal 21-31 [facility] Comment on above: Performed By: #### 2 305500 #### [facility] [address] [place] [address] Creatinine [Mass/Vol] 0.3 mg/dL Low 0.5-1.3 [facility] Comment on above: Performed By: #### 2 198034 #### [facility] [address] [place] [address] Glucose [Mass/Vol] 176 mg/dL Normal 55-199 [facility] Comment on above: Performed By: #### 2 313885 #### [facility] [address] [place] [address] Potassium [Moles/Vol] 4.2 mmol/L Normal 3.5-5.3 [facility] Comment on above: Performed By: #### 2 474146 #### [facility] [address] [place] [address] Sodium [Moles/Vol] 135 mmol/L Normal 135-145 [facility] Comment on above: Performed By: #### 2 [id number] #### [facility] [address] [place] [address] Urea nitrogen [Mass/Vol] 10 mg/dL Normal 5-21 [facility] Comment on above: Performed By: #### 2 [id number] #### [facility] [address] [place] [address] Urea nitrogen/Creatinine [Mass ratio] 33 No Units High 10-20 [facility] Comment on above: Performed By: #### 2 687083 #### [facility] [address] [place] [address] CBC w/ Auto Diffon 4 Basophils/100 WBC (Bld) 0.0 % Normal 0.0-2.0 [facility] Comment on above: Performed By: #### 2 019501 #### [facility] [address] [place] [address] Basophils/Leukocytes Auto (Bld) [Pure # fraction] 0.0 E9/L Normal 0.0-0.2 [facility] Comment on above: Performed By: #### 2 412292 #### [facility] [address] [place] [address] Eosinophils (Bld) [#/Vol] 0.0 E9/L Normal 0.0-0.5 [facility] Comment on above: Performed By: #### 2 635602 #### [facility] [address] [place] [address] Eosinophils/100 WBC (Bld) 0.0 % Normal 0.0-8.0 [facility] Comment on above: Performed By: #### 2 827799 #### [facility] [address] [place] [address] Erythrocyte distribution width (RBC) [Ratio] 15.7 % High 10.9-14.2 [facility] Comment on above: Performed By: #### 2 943552 #### [facility] [address] [place] [address] Hematocrit (Bld) [Volume fraction] 34.7 % Normal 34.0-46.0 [facility] Comment on above: Performed By: #### 2 501231 #### [facility] [address] [place] [address] Hemoglobin (Bld) [Mass/Vol] 11.2 g/dL Low 12.0-16.0 [facility] Comment on above: Performed By: #### 2 148631 #### [facility] [address] [place] [address] Lymphocytes (Bld) [#/Vol] 0.3 E9/L Low 1.0-4.0 [facility] Comment on above: Performed By: #### 2 627172 #### [facility] [address] [place] [address] Lymphocytes/100 WBC (Bld) 2.0 % Low 14.0-50.0 [facility] Comment on above: Performed By: #### 2 154259 #### [facility] [address] [place] [address] MCH (RBC) [Entitic mass] 28.4 pg Normal 27.0-34.0 [facility] Comment on above: Performed By: #### 2 475792 #### [facility] [address] [place] [address] MCHC (RBC) [Mass/Vol] 32.4 g/dL Normal 31.4-36.0 [facility] Comment on above: Performed By: #### 2 240274 #### [facility] [address] [place] [address] MCV (RBC) [Entitic vol] 87.8 fL Normal 80.0-100.0 [facility] Comment on above: Performed By: #### 2 787000 #### [facility] [address] [place] [address] Monocytes (Bld) [#/Vol] 0.1 E9/L Low 0.2-1.0 [facility] Comment on above: Performed By: #### 2 364752 #### [facility] [address] [place] [address] Neutrophils (Bld) [#/Vol] 16.0 E9/L High 2.0-7.5 [facility] Comment on above: Performed By: #### 2 694111 #### [facility] [address] [place] [address] Neutrophils/100 WBC (Bld) 97.1 % High 36.0-75.0 [facility] Comment on above: Performed By: #### 2 590152 #### [facility] [address] [place] [address] Platelet mean volume (Bld) [Entitic vol] 7.6 fL Normal 6.4-10.8 [facility] Comment on above: Performed By: #### 2 589973 #### [facility] [address] [place] [address] Platelets (Bld) [#/Vol] 143.0 E9/L Low 150.0-500.0 [facility] Comment on above: Performed By: #### 2 253339 #### [facility] [address] [place] [address] RBC (Bld) [#/Vol] 4.0 E12/L Low 4.3-5.9 [facility] Comment on above: Performed By: #### 2 044924 #### [facility] [address] [place] [address] WBC corrected for nucl RBC Auto (Bld) [#/Vol] 16.5 E9/L High 4.0-11.0 [facility] Comment on above: Performed By: #### 2 157250 #### [facility] [address] [place] [address] CHEMISTRYOrdered By: SYSTEM SYSTEM on 01-10-2024 Anion [...] - From: Carolina Flores RN To: Oliver OYSTLalo; Sent: 01/10/2024 11:17:32 EDT ! Subject: Coding [...] desired or expected. Thank you!carolina 6[address] Normal [facility] HEMATOLOGYOrdered By: SYSTEM SYSTEM on 01-10-2024 [...] Doug e Manageron 01-10-2024 Interdisciplinary Note - Brick Molder Hand Interdisciplinary Note - Brick Molder Hand Patient is awake and alert in bed, [...] today and anticipate DC home tomorrow. Normal [facility] Comment on above: Result Comment: Elec tronically Signed By: Shannan BIRGHT, Ashlee\.br\Date and Time Signed: 01/10/24 10:24 EDT eGFRon 01-10-2024 eGFR 118 mL/min/1.73 m2 Normal >=59 [facility] Comment on above: Order Comment: Order added by Discern Expert. Performed By: #### 1 [id number] #### [facility] [address] [place] [address] BMPOrdered By: SYSTEM SYSTEM on 01-09-2024 Anion gap [Moles/Vol] 9 mmol/L Normal 6-16 [facility] Comment on above: Performed By: #### 2 957934 #### [facility] [address] [place] [address] Chloride [Moles/Vol] 102 mmol/L Normal 101-111 [facility] Comment on above: Performed By: #### 2 401317 #### [facility] [address] [place] [address] CO2 [Moles/Vol] 28 mmol/L Normal 21-31 [facility] Comment on above: Performed By: #### 2 908427 #### [facility] [address] [place] [address] Creatinine [Mass/Vol] 0.4 mg/dL Low 0.5-1.3 [facility] Comment on above: Performed By: #### 2 835474 #### [facility] [address] [place] [address] Glucose [Mass/Vol] 139 mg/dL Normal 55-199 [facility] Comment on above: Performed By: #### 2 122025 #### [facility] [address] [place] [address] Potassium [Moles/Vol] 3.3 mmol/L Low 3.5-5.3 [facility] Comment on above: Performed By: #### 2 050747 #### [facility] [address] [place] [address] Sodium [Moles/Vol] 136 mmol/L Normal 135-145 [facility] Comment on above: Performed By: #### 2 372882 #### [facility] [address] [place] [address] Urea nitrogen [Mass/Vol] 25 mg/dL High 5-21 [facility] Comment on above: Performed By: #### 2 222929 #### [facility] [address] [place] [address] Calcium [Mass/Vol] 6.7 mg/dL Abnormal 8.9-11.1 [facility] Comment on above: Result Comment: Crit ical Result Verified by Repeat Analysis Critical Result S_CA.7 Called to and read back by: DEEPTI LI at: 01/09/2024 07:44:21 by:SUN Performed By: #### 2 501157 #### [facility] [address] [place] [address] Result Comment: Crit ical Result Verified by Repeat Analysis Critical Result S_CA.7 Called to and read back by: DEEPTI LI at: 01/09/2024 07:44:21 by:SUN BMPon 01-09-2024 Urea nitrogen/Creatinine [Mass ratio] 62 No Units High 10-20 [facility] Comment on above: Performed By: #### 2 505773 #### [facility] [address] [place] [address] CBC w/ Auto DiffOrdered By: SYSTEM SYSTEM on 01-09-2024 Basophils/100 WBC (Bld) 0.2 % Normal 0.0-2.0 [facility] Comment on above: Performed By: #### 2 674823 #### [facility] [address] [place] [address] Basophils/Leukocytes Auto (Bld) [Pure # fraction] 0.0 E9/L Normal 0.0-0.2 [facility] Comment on above: Performed By: #### 2 373304 #### [facility] [address] [place] [address] Eosinophils (Bld) [#/Vol] 0.0 E9/L Normal 0.0-0.5 [facility] Comment on above: Performed By: #### 2 487850 #### [facility] [address] [place] [address] Eosinophils/100 WBC (Bld) 0.2 % Normal 0.0-8.0 [facility] Comment on above: Performed By: #### 2 673833 #### [facility] [address] [place] [address] Erythrocyte distribution width (RBC) [Ratio] 16.0 % High 10.9-14.2 [facility] Comment on above: Performed By: #### 2 944334 #### [facility] [address] [place] [address] Hematocrit (Bld) [Volume fraction] 38.4 % Normal 34.0-46.0 [facility] Comment on above: Performed By: #### 2 311992 #### [facility] [address] [place] [address] Hemoglobin (Bld) [Mass/Vol] 12.4 g/dL Normal 12.0-16.0 [facility] Comment on above: Performed By: #### 2 554858 #### [facility] [address] [place] [address] Lymphocytes (Bld) [#/Vol] 0.8 E9/L Low 1.0-4.0 [facility] Comment on above: Performed By: #### 2 796885 #### [facility] [address] [place] [address] Lymphocytes/100 WBC (Bld) 4.6 % Low 14.0-50.0 [facility] Comment on above: Performed By: #### 2 717018 #### [facility] [address] [place] [address] MCH (RBC) [Entitic mass] 28.6 pg Normal 27.0-34.0 [facility] Comment on above: Performed By: #### 2 633323 #### [facility] [address] [place] [address] MCHC (RBC) [Mass/Vol] 32.3 g/dL Normal 31.4-36.0 [facility] Comment on above: Performed By: #### 2 523647 #### [facility] [address] [place] [address] MCV (RBC) [Entitic vol] 88.3 fL Normal 80.0-100.0 [facility] Comment on above: Performed By: #### 2 536253 #### [facility] [address] [place] [address] Monocytes (Bld) [#/Vol] 0.6 E9/L Normal 0.2-1.0 [facility] Comment on above: Performed By: #### 2 458895 #### [facility] [address] [place] [address] Neutrophils (Bld) [#/Vol] 16.0 E9/L High 2.0-7.5 [facility] Comment on above: Performed By: #### 2 353078 #### [facility] [address] [place] [address] Neutrophils/100 WBC (Bld) 91.8 % High 36.0-75.0 [facility] Comment on above: Performed By: #### 2 796036 #### [facility] [address] [place] [address] Platelet mean volume (Bld) [Entitic vol] 8.0 fL Normal 6.4-10.8 [facility] Comment on above: Performed By: #### 2 544586 #### [facility] [address] [place] [address] Platelets (Bld) [#/Vol] 149.0 E9/L Low 150.0-500.0 [facility] Comment on above: Performed By: #### 2 814412 #### [facility] [address] [place] [address] RBC (Bld) [#/Vol] 4.3 E12/L Normal 4.3-5.9 [facility] Comment on above: Performed By: #### 2 116321 #### [facility] [address] [place] [address] WBC corrected for nucl RBC Auto (Bld) [#/Vol] 17.4 E9/L High 4.0-11.0 [facility] Comment on above: Result Comment: Merary pheral smear review performed. Performed By: #### 2 490911 #### [facility] [address] [place] [address] CHEMISTRYOrdered By: SYSTEM SYSTEM on 01-09-2024 Urea nitrogen/Creatinine [Mass ratio] 62 mg/mg High 10 - 20 [facility] HEMATOLOGYOrdered By: SYSTEM SYSTEM on 01-09-2024 Monocytes/100 WBC (Bld) 3.2 % Low 4.0 - 14.0 % [facility] Inpatient Clinical Summaryon 01-09-2024 Inpatient Clinical Summary Inpatient Clinical Summary [address] [address] Clinical Summary Person Information: Name: CAROLINA GUTIERREZ Age: 63 Years : 1960 Sex: Female PCP: Berry Canales Marital Status: Phone: [phone] Race: White Ethnicity: Non- or Language: Macanese Visit Id: Visit Reason: Diarrhea; Nausea and vomiting; Abdominal pain; NVD Speciality: Acuity: Enc Type: Inpatient Med Service: Medical Arrival: 01/08/2024 07:50:15 Discharge: Dispo Type: Admitted as IP to this Hosp Address: [address] [place] [phone] Provider Notes: Diagnosis: 3:Lactic acidosis Problems Active [...] Follow up: With: Address: When: Berry Beth [address] [place] [address] Business (1) 01/16/2024 2:00 PM Type Location [facility] Follow Up w/TCM [facility] 01/16/2024 2:00 PM 01/16/2024 2:20 PM Confirmed Patient Education Information: Normal [facility] Inpatient Patient Summaryon 01-09-2024 Inpatient Patient Summary Inpatient Patient Summary [address] [address] Patient Discharge Instructions PERSON INFORMATION [...] Follow up: With: Address: When: Berrynuno Gellerab [address] [place], [place] [address] [facility] (1) 01/16/2024 2:00 PM In the event that this physician does not participate in your insurance network, please consult with your insurance company to find a nearby participating provider. Type Location [facility] Follow Up w/TCM [facility] 01/16/2024 2:00 PM 01/16/2024 2:20 PM Confirmed [...] Last Do (more content not included)... Normal [facility] Interdisciplinary Note - Doug e Manageron 01-09-2024 Interdisciplinary Note - Brick Molder Hand Interdisciplinary Note - Brick Molder Hand Pt is awake and alert in bed, previously rounded with Dr. Body, Family present at bedside. Pt is from home with spouse and family support declines any concers or DC needs. Pt is independent with all ADL's, declines any DC needs. CRM following . PCP verified and insurance information reviewed and DME discussed. Contact information provided and white board updated. Normal [facility] Comment on above: Result Comment: Elec tronically Signed By: Shannan BRIGHT, Ashlee\.dusty\Date and Time Signed: 01/09/24 09:47 EDT eGFROrdered By: SHANNA Moulton on 01-09-2024 eGFR 110 mL/min/1.73 m2 Normal >=59 [facility] Comment on above: Order Comment: Order added by Discern Expert. Performed By: #### 1 [id number] #### [facility] [address] [place] [address] C. diff by PCRon 01-08-2024 Clostridium difficile by PCR Negative Normal Negative [facility] Comment on above: Order Comment: Order added by Discern Expert. Result Comment: This test result should be correlated with clinical presentations and medical history by a healthcare provider to determine its clinical significance. Performed By: #### 4 [id number] #### [facility] [address] [place] [address] CDiff PCRon 01-08-2024 C. difficile toxin A+B Ql (Stl) No, PCR to follow Normal [facility] Comment on above: Performed By: #### 3 [id number] #### [facility] [address] [place] [address] CHEMISTRYOrdered By: SYSTEM SYSTEM on 01-08-2024 Lactic [...] 22.7 s Low 25.1 - 36.5 second(s) [facility] Comment on above: Interpretive Data: [...] the same coagulation reagent and instrumentation as [facility] Currently there are no coagulation studies available worldwide for children to 14 days, and no normal ranges. Heparin therapeutic range (represented by Anti-Factor Xa activity of 0.2 - 0.4 U/mL) corresponds to PTT of 56.6 - 109.0 sec. INR Coag (PPP) [Relative time] 1.02 {INR} Invalid Interpretation Code [facility] Comment on above: Interpretive Data: I NR results are specifically intended to assess patients stabilized on long-term Anticoagulation therapy suggested INR s Less Intensive Anticoagulation 2.0 3.0 Conventional Range 3.0 4.5 PT Coag (PPP) [Time] 11.4 s Normal 9.4 - 1 2.5 second(s) [facility] Comment on above: Interpretive Data: [...] the same coagulation reagent and instrumentation as [facility] Currently there are no coagulation studies available worldwide for children to 14 days, and no normal ranges. aPTT Coag (PPP) [Time] see comment Invalid Interpretation Code 25.1 - 36.5 [facility] Comment on above: Result Comment: The specimen for this test has been found unacceptable due to clotting as determined by [id number]. Floridalma Pendleton was contacted and the following [...] the same coagulation reagent and instrumentation as [facility]. Currently there are no coagulation studies available worldwide for children to 14 days, and no normal ranges. Heparin therapeutic range (represented by Anti-Factor Xa activity of 0.2 - 0.4 U/mL) corresponds to PTT of 56.6 - 109.0 sec. INR Coag (PPP) [Relative time] see comment Invalid Interpretation Code [facility] Comment on above: Result Comment: The specimen for this test has been found unacceptable due to clotting as determined by DLP319. Floridalma Pendleton was contacted and the following determination was made 01/08/2024 08:43:01 EDT. Interpretive Data: I NR results are specifically intended to assess patients stabilized on long-term Anticoagulation therapy suggested INR s Less Intensive Anticoagulation 2.0 3.0 Conventional Range 3.0 4.5 PT Coag (PPP) [Time] see comment Invalid Interpretation Code 9.4 - 12.5 [facility] Comment on above: Result Comment: The specimen for this test has been found unacceptable due to clotting as determined by EXC193. Floridalma Pendleton was contacted and the following [...] the same coagulation reagent and instrumentation as [facility] Currently there are no coagulation studies available [...] Lactic Acid Lvl 1.8 mmol/L Normal 0.5-2.2 [facility] Comment on above: Performed By: #### 2 [id number] #### [facility] [address] [place] [address] Lactic Acid Lvl 2.0 mmol/L Normal 0.5-2.2 [facility] Comment on above: Performed By: #### 2 980218 #### [facility] [address] [place] [address] Lactic Acid Lvl 2.6 mmol/L High 0.5-2.2 [facility] Comment on above: Order Comment: Order added by EKS Rule. (FT_LACTIC_ACID_REFLEX) Adds reflex Lactic Acid 4 hours after initial if result is greater than or equal to 2.0. Performed By: #### 2 [id number] #### [facility] [address] [facility] [place] [address] BMPon 01-07-2024 Anion gap [Moles/Vol] 17 mmol/L High 6-16 [facility] Comment on above: Performed By: #### 2 909607 #### [facility] [address] [place] [address] Calcium [Mass/Vol] 8.2 mg/dL Low 8.9-11.1 [facility] Comment on above: Performed By: #### 2 806106 #### [facility] [address] [place] [address] Chloride [Moles/Vol] 95 mmol/L Low 101-111 [facility] Comment on above: Performed By: #### 2 335836 #### [facility] [address] [place] [address] CO2 [Moles/Vol] 27 mmol/L Normal 21-31 [facility] Comment on above: Performed By: #### 2 021637 #### [facility] [address] [place] [address] Creatinine [Mass/Vol] 0.7 mg/dL Normal 0.5-1.3 [facility] Comment on above: Performed By: #### 2 460962 #### [facility] [address] [place] [address] Glucose [Mass/Vol] 208 mg/dL High 55-199 [facility] Comment on above: Performed By: #### 2 431522 #### [facility] [address] [facility] [place] [address] Potassium [Moles/Vol] 3.6 mmol/L Normal 3.5-5.3 [facility] Comment on above: Performed By: #### 2 593896 #### [facility] [address] [facility] [place] [address] Sodium [Moles/Vol] 135 mmol/L Normal 135-145 [facility] Comment on above: Performed By: #### 2 667105 #### [facility] [address] [place] [address] Urea nitrogen [Mass/Vol] 31 mg/dL High 5-21 [facility] Comment on above: Performed By: #### 2 591832 #### [facility] [address] [place] [address] Urea nitrogen/Creatinine [Mass ratio] 44 No Units High 10-20 [facility] Comment on above: Performed By: #### 2 [id number] #### [facility] [address] [place] [address] C Sputumon 01-07-2024 Bacteria identified Respiratory culture Nom (Sput) Microbiology PROCEDURE: Sputum Culture [R1] SOURCE: Sputum BODY SITE: COLLECTED DATE/TIME: 01/05/2024 11:48 EDT RECEIVED DATE/TIME: 01/05/2024 11:53 EDT START DATE/TIME: 01/05/2024 11:53 EDT FREE TEXT SOURCE: Maximino ASHFORD, Maximino ASHFORD, Serge Olivas FINAL REPORTS Final Report [] Verified Date/Time: 01/07/2024 12:12 EDT 2+ Normal upper respiratory juanjose isolated STAINS Gram Stain Report [] Verified Date/Time: 01/06/2024 08:18 EDT Occasional epithelial cells Occasional White Blood Cells 1+ Gram Positive Cocci Performing Locations R1: This test was performed at: [facility], [address] [place] [address], [phone] , , Normal [facility] Comment on above: Performed By: #### 2 [id number] #### [facility] [address] [place] [address] CBC w/ Auto Diffon 4 Basophils/100 WBC (Bld) 0.1 % Normal 0.0-2.0 [facility] Comment on above: Performed By: #### 2 [id number] #### [facility] [address] [place] [address] Basophils/Leukocytes Auto (Bld) [Pure # fraction] 0.0 E9/L Normal 0.0-0.2 [facility] Comment on above: Performed By: #### 2 447496 #### [facility] [address] [place] [address] Eosinophils (Bld) [#/Vol] 0.0 E9/L Normal 0.0-0.5 [facility] Comment on above: Performed By: #### 2 [id number] #### [facility] [address] [place] [address] Eosinophils/100 WBC (Bld) 0.0 % Normal 0.0-8.0 [facility] Comment on above: Performed By: #### 2 053106 #### [facility] [address] [place] [address] Erythrocyte distribution width (RBC) [Ratio] 16.1 % High 10.9-14.2 [facility] Comment on above: Performed By: #### 2 885555 #### [facility] [address] [place] [address] Hematocrit (Bld) [Volume fraction] 40.7 % Normal 34.0-46.0 [facility] Comment on above: Performed By: #### 2 473976 #### [facility] [address] [place] [address] Hemoglobin (Bld) [Mass/Vol] 13.2 g/dL Normal 12.0-16.0 [facility] Comment on above: Performed By: #### 2 966032 #### [facility] [address] [place] [address] Lymphocytes (Bld) [#/Vol] 0.6 E9/L Low 1.0-4.0 [facility] Comment on above: Performed By: #### 2 416406 #### [facility] [address] [place] [address] Lymphocytes/100 WBC (Bld) 3.2 % Low 14.0-50.0 [facility] Comment on above: Performed By: #### 2 146628 #### [facility] [address] [place] [address] MCH (RBC) [Entitic mass] 28.3 pg Normal 27.0-34.0 [facility] Comment on above: Performed By: #### 2 767305 #### [facility] [address] [place] [address] MCHC (RBC) [Mass/Vol] 32.4 g/dL Normal 31.4-36.0 [facility] Comment on above: Performed By: #### 2 [id number] #### [facility] [address] [place] [address] MCV (RBC) [Entitic vol] 87.4 fL Normal 80.0-100.0 [facility] Comment on above: Performed By: #### 2 059497 #### [facility] [address] [place] [address] Monocytes (Bld) [#/Vol] 0.5 E9/L Normal 0.2-1.0 [facility] Comment on above: Performed By: #### 2 581012 #### [facility] [address] [place] [address] Neutrophils (Bld) [#/Vol] 16.2 E9/L High 2.0-7.5 [facility] Comment on above: Performed By: #### 2 252835 #### [facility] [address] [place] [address] Neutrophils/100 WBC (Bld) 93.5 % High 36.0-75.0 [facility] Comment on above: Performed By: #### 2 749178 #### [facility] [address] [place] [address] Platelet mean volume (Bld) [Entitic vol] 7.7 fL Normal 6.4-10.8 [facility] Comment on above: Performed By: #### 2 608732 #### [facility] [address] [place] [address] Platelets (Bld) [#/Vol] 227.0 E9/L Normal 150.0-500.0 [facility] Comment on above: Performed By: #### 2 503544 #### [facility] [address] [place] [address] RBC (Bld) [#/Vol] 4.7 E12/L Normal 4.3-5.9 [facility] Comment on above: Performed By: #### 2 454018 #### [facility] [address] [place] [address] WBC corrected for nucl RBC Auto (Bld) [#/Vol] 17.3 E9/L High 4.0-11.0 [facility] Comment on above: Performed By: #### 2 731323 #### [facility] [address] [place] [address] CHEMISTRYOrdered By: Lab ROP User on 01-07-2024 Glucose [Mass/Vol] 266 mg/dL High 55 - 99 mg/dL [facility] C POC Subsection Comment on above: Result Comment: Sugar muhammad RN/ POC Device SN [id number] 1 Invalid Interpretation Code [facility] POC Subsection POC User ID [id number] 1 Invalid Interpretation Code [facility] POC Subsection POC Username CORTNEY LOPEZ Invalid Interpretation Code [facility] POC Subsection Glucose [Mass/Vol] 147 mg/dL High 55 - 99 mg/dL FTM C POC Subsection POC Device SN [id number] 1 Invalid Interpretation Code [facility] POC Subsection POC User ID [id number] 1 Invalid Interpretation Code [facility]OC Subsection POC Username CORTNEY LOPEZ Invalid Interpretation Code [facility] POC Subsection CHEMISTRYOrdered By: SYSTEM SYSTEM on [...] POCon Glucose [Mass/Vol] 147 mg/dL High 55-99 [facility] Comment on above: Performed By: #### 2 [id number] #### [facility] [address] [place] [address] HEMATOLOGYOrdered By: SYSTEM SYSTEM on 01-07-2024 Basophils/100 [...] Doug e Manageron 01-07-2024 Interdisciplinary Note - Brick Molder Hand Interdisciplinary Note - Brick Molder Hand CRM to room to discuss DC planning. Patient is awake, alert and oriented. Patient is from home with her spouse. [place] transport [place]. Patient verified PCP, DME and insurance. Patient is inpatient for [facility]. Patient is assigned to Dr Chapman, see [...] get updates at 10 Am from hospitalist [facility] Comment on above: Result Comment: Elec tronically Signed By: Consuelo Richards\.br\Date and Time Signed: 01/07/24 09:22 EDT Magnesiumon 01-07-2024 Magnesium [Mass/Vol] 2.2 mg/dL Normal 1.3-2.4 [facility] Comment on above: Performed By: #### 2 [id number] #### [facility] [address] [place] [address] eGFRon 01-07-2024 eGFR 96 mL/min/1.73 m2 Normal >=59 [facility] Comment on above: Order Comment: Order added by Discern Expert. Performed By: #### 1 [id number] #### [facility] [address] [place] [address] BMPon 01-06-2024 Anion gap [Moles/Vol] 13 mmol/L Normal 6-16 [facility] Comment on above: Performed By: #### 2 114494 #### [facility] [address] [place] [address] Calcium [Mass/Vol] 8.1 mg/dL Low 8.9-11.1 [facility] Comment on above: Performed By: #### 2 605209 #### [facility] [address] [place] [address] Chloride [Moles/Vol] 99 mmol/L Low 101-111 [facility] Comment on above: Performed By: #### 2 939371 #### [facility] [address] [place] [address] CO2 [Moles/Vol] 29 mmol/L Normal 21-31 [facility] Comment on above: Performed By: #### 2 838149 #### [facility] [address] [place] [address] Creatinine [Mass/Vol] 0.7 mg/dL Normal 0.5-1.3 [facility] Comment on above: Performed By: #### 2 026382 #### [facility] [address] [place] [address] Glucose [Mass/Vol] 183 mg/dL Normal 55-199 [facility] Comment on above: Performed By: #### 2 646037 #### [facility] [address] [place] [address] Potassium [Moles/Vol] 3.8 mmol/L Normal 3.5-5.3 [facility] Comment on above: Performed By: #### 2 840823 #### [facility] [address] [place] [address] Sodium [Moles/Vol] 137 mmol/L Normal 135-145 [facility] Comment on above: Performed By: #### 2 697077 #### [facility] [address] [place] [address] Urea nitrogen [Mass/Vol] 28 mg/dL High 5-21 [facility] Comment on above: Performed By: #### 2 256304 #### [facility] [address] [place] [address] Urea nitrogen/Creatinine [Mass ratio] 40 No Units High 10-20 [facility] Comment on above: Performed By: #### 2 552915 #### [facility] [address] [place] [address] BNPon 01-06-2024 Int Ctr BNP Pass Normal [facility] Comment on above: Performed By: #### 1 [id number] #### [facility] [address] [place] [address] Natriuretic peptide B (Bld) [Mass/Vol] 6 pg/mL Normal 5-80 [facility] Comment on above: Performed By: #### 1 [id number] #### [facility] [address] [place] [address] CBC w/ Auto Diffon 4 Basophils/100 WBC (Bld) 0.1 % Normal 0.0-2.0 [facility] Comment on above: Performed By: #### 2 755633 #### [facility] [address] [place] [address] Basophils/Leukocytes Auto (Bld) [Pure # fraction] 0.0 E9/L Normal 0.0-0.2 [facility] Comment on above: Performed By: #### 2 596395 #### [facility] [address] [place] [address] Eosinophils (Bld) [#/Vol] 0.0 E9/L Normal 0.0-0.5 [facility] Comment on above: Performed By: #### 2 386661 #### [facility] [address] [place] [address] Eosinophils/100 WBC (Bld) 0.0 % Normal 0.0-8.0 [facility] Comment on above: Performed By: #### 2 488243 #### [facility] [address] [place] [address] Erythrocyte distribution width (RBC) [Ratio] 16.0 % High 10.9-14.2 [facility] Comment on above: Performed By: #### 2 127984 #### [facility] [address] [place] [address] Hematocrit (Bld) [Volume fraction] 38.7 % Normal 34.0-46.0 [facility] Comment on above: Performed By: #### 2 762280 #### [facility] [address] [place] [address] Hemoglobin (Bld) [Mass/Vol] 12.9 g/dL Normal 12.0-16.0 [facility] Comment on above: Performed By: #### 2 214678 #### [facility] [address] [place] [address] Lymphocytes (Bld) [#/Vol] 0.8 E9/L Low 1.0-4.0 [facility] Comment on above: Performed By: #### 2 105393 #### [facility] [address] [place] [address] Lymphocytes/100 WBC (Bld) 5.1 % Low 14.0-50.0 [facility] Comment on above: Performed By: #### 2 707352 #### [facility] [address] [place] [address] MCH (RBC) [Entitic mass] 29.2 pg Normal 27.0-34.0 [facility] Comment on above: Performed By: #### 2 929357 #### [facility] [address] [place] [address] MCHC (RBC) [Mass/Vol] 33.4 g/dL Normal 31.4-36.0 [facility] Comment on above: Performed By: #### 2 585514 #### [facility] [address] [place] [address] MCV (RBC) [Entitic vol] 87.4 fL Normal 80.0-100.0 [facility] Comment on above: Performed By: #### 2 122636 #### [facility] [address] [place] [address] Monocytes (Bld) [#/Vol] 0.4 E9/L Normal 0.2-1.0 [facility] Comment on above: Performed By: #### 2 771207 #### [facility] [address] [place] [address] Neutrophils (Bld) [#/Vol] 15.3 E9/L High 2.0-7.5 [facility] Comment on above: Performed By: #### 2 679565 #### [facility] [address] [place] [address] Neutrophils/100 WBC (Bld) 92.1 % High 36.0-75.0 [facility] Comment on above: Performed By: #### 2 605211 #### [facility] [address] [place] [address] Platelet 239.0 E9/L Normal 150.0-500.0 [facility] Comment on above: Performed By: #### 2 959956 #### [facility] [address] [place] [address] Platelet mean volume (Bld) [Entitic vol] 7.4 fL Normal 6.4-10.8 [facility] Comment on above: Performed By: #### 2 168605 #### [facility] [address] [place] [address] RBC (Bld) [#/Vol] 4.4 E12/L Normal 4.3-5.9 [facility] Comment on above: Performed By: #### 2 620327 #### [facility] [address] [place] [address] WBC corrected for nucl RBC Auto (Bld) [#/Vol] 16.6 E9/L High 4.0-11.0 [facility] Comment on above: Result Comment: Merary pheral smear review performed. Performed By: #### 2 870594 #### [facility] [address] [place] [address] CHEMISTRYOrdered By: Lab ROP User on 01-06-2024 Glucose [Mass/Vol] 196 mg/dL High 55 - 99 mg/dL FT C POC Subsection Comment on above: Result Comment: Sugar muhammad RN/ POC Device SN [id number] 1 Invalid Interpretation Code [facility] POC Subsection POC User ID [id number] 1 Invalid Interpretation Code [facility] POC Subsection POC Username PITA THURSTON Invalid Interpretation Code [facility] POC Subsection CHEMISTRYOrdered By: SYSTEM SYSTEM on [...] 6 pg/mL Normal 5 - 80 pg/mL [facility] Capillary Glucose POCon Glucose [Mass/Vol] 196 mg/dL High 55-99 [facility] Comment on above: Result Comment: Sugar WALKER Performed By: #### 2 [id number] #### [facility] [address] [place] [address] Glucose [Mass/Vol] 226 mg/dL High 55-99 [facility] Comment on above: Result Comment: Zari francie Meter Performed By: #### 2 [id number] #### [facility] [address] [place] [address] Glucose [Mass/Vol] 159 mg/dL High 55-99 [facility] Comment on above: Result Comment: Sugar WALKER Performed By: #### 2 [id number] #### [facility] [address] [place] [address] Glucose [Mass/Vol] 152 mg/dL High 55-99 [facility] Comment on above: Result Comment: Sugar WALKER Performed By: #### 2 [id number] #### [facility] [address] [place] [address] ED Note-Physicianon 01-06-20 ED Note-Physician ED Note-Physician [...] days ago. Patient states she has taken [id number] diuretics with minimal relief and swelling. Patient [...] Blood Cultur (more content not included)... Normal [facility] Comment on above: Result Comment: Elec [...] Result Comment: Merary pheral smear review performed. [id number] 01-06-2024 HbA1c (Bld) [Mass fraction] 6.2 % High <=5.9 [facility] Comment on above: Order Comment: Order placed by EKM rule. [email or web address]_[facility] Performed By: #### 7 [id number] #### [facility] [address] [place] [address] Interdisciplinary Note - Doug e Manageron 01-06-2024 Interdisciplinary Note - Brick Molder Hand Interdisciplinary Note - Brick Molder Hand CRM to room to discuss DC planning. Patient is awake, alert and oriented. Patient is from home with her spouse. He will transport at [place]. Patient verified PCP, DME and insurance. Patient is inpatient for [facility]. Patient is assigned to Serge Atkinson NP, see notes. Patient will be seen by Cardiology and pulmonology. Patient will get an ECHO. Patient blood cx negative. Patient has declined at this time needs for HH, PM or DME. Patient was provided CRM contact, white board updated. CRM following. Patient is a possible DC today or 01/06 Normal [facility] Comment on above: Result Comment: Elec tronically Signed By: Consuelo Richards\.br\Date and Time Signed: 01/06/24 10:59 EDT Interdisciplinary Note - Soc ial Workeron 01-06-2024 Interdisciplinary Note - Oncology Patient Navigator Interdisciplinary Note - Oncology Patient Navigator There was a system generated request to review Advance Directives with the patient. SW met with the patient and reviewed the protocol in completing the document . She shared that she needs to decide who will be her POA. She did take a copy to complete once a decision has been made about her alternates, and will bring into [facility] to place on file. SW will remain available. Normal [facility] Respiratory Panel by PCRon 0 01-06-2024 Adenovirus DNA BRIAN+non-probe Ql (Nph) Not detected Normal [facility] Comment on above: Result Comment: Test ing was performed using nucleic acid amplification including Influenza A, Influenza A H1, Influenza A H3, Influenza B, RSV A, RSV B, Adenovirus, Human Metapneumovirus, Parainfluenza 1,2,3, and 4, Rhinovirus, Bordetella parapertussis/bronchiseptica, Bordetella holmesii, and Bordetella pertussis. Performed By: #### 1 [id number] #### [facility] [address] [place] [address] B. parapertussis DNA BRIAN+probe Ql (Upper resp) Not detected Normal Not Detected [facility] Comment on above: Performed By: #### 1 [id number] #### [facility] [address] [place] [address] B. pertussis DNA BRIAN+probe Ql (Upper resp) Not detected Normal Not Detected [facility] Comment on above: Performed By: #### 1 [id number] #### [facility] [address] [place] [address] FLUAV H1 RNA BRIAN+non-probe Ql (Nph) Not detected Normal [facility] Comment on above: Performed By: #### 1 [id number] #### [facility] [address] [place] [address] FLUAV H3 RNA BRIAN+non-probe Ql (Nph) Not detected Normal [facility] Comment on above: Performed By: #### 1 [id number] #### [facility] [address] [place] [address] FLUAV RNA BRIAN+non-probe Ql (Nph) Not detected Normal [facility] Comment on above: Performed By: #### 1 [id number] #### [facility] [address] [place] [address] FLUBV RNA BRIAN+non-probe Ql (Nph) Not detected Normal [facility] Comment on above: Performed By: #### 1 [id number] #### [facility] [address] [place] [address] Human Metapneumovirus Not detected Normal [facility] Comment on above: Result Comment: This test result should be correlated with clinical presentations and medical history by a healthcare provider to determine its clinical significance. Performed By: #### 1 [id number] #### [facility] [address] [place] [address] Parainfluenza virus 1 RNA BRIAN+non-probe Ql (Nph) Not detected Normal [facility] Comment on above: Performed By: #### 1 [id number] #### [facility] [address] [place] [address] Parainfluenza virus 2 RNA BRIAN+non-probe Ql (Nph) Not detected Normal [facility] Comment on above: Performed By: #### 1 [id number] #### [facility] [address] [place] [address] Parainfluenza virus 3 RNA BRIAN+non-probe Ql (Nph) Not detected Normal [facility] Comment on above: Performed By: #### 1 [id number] #### [facility] [address] [place] [address] Parainfluenza virus 4 RNA BRIAN+non-probe Ql (Nph) Not detected Normal [facility] Comment on above: Performed By: #### 1 [id number] #### [facility] [address] [place] [address] Resp Panel Intrl QC Pass Normal [facility] Comment on above: Performed By: #### 1 [id number] #### [facility] [address] [place] [address] Rhinovirus+Enterovir us RNA BRIAN+non-probe Ql (Nph) Not detected Normal [facility] Comment on above: Performed By: #### 1 [id number] #### [facility] [address] [place] [address] RSV RNA BRIAN+non-probe Ql (Nph) Not detected Normal [facility] Comment on above: Performed By: #### 1 [id number] #### [facility] [address] [place] [address] eGFRon 01-06-2024 eGFR 96 mL/min/1.73 m2 Normal >=59 [facility] Comment on above: Order Comment: Order added by Discern Expert. Performed By: #### 1 [id number] #### [facility] [address] [place] [address] BMPon 01-05-2024 Anion gap [Moles/Vol] 13 mmol/L Normal 6-16 [facility] Comment on above: Performed By: #### 2 [id number] #### [facility] [address] [place] [address] Calcium [Mass/Vol] 8.6 mg/dL Low 8.9-11.1 [facility] Comment on above: Performed By: #### 2 055441 #### [facility] [address] [place] [address] Chloride [Moles/Vol] 99 mmol/L Low 101-111 [facility] Comment on above: Performed By: #### 2 739818 #### [facility] [address] [place] [address] CO2 [Moles/Vol] 31 mmol/L Normal 21-31 [facility] Comment on above: Performed By: #### 2 828673 #### [facility] [address] [place] [address] Creatinine [Mass/Vol] 0.6 mg/dL Normal 0.5-1.3 [facility] Comment on above: Performed By: #### 2 [id number] #### [facility] [address] [place] [address] Glucose [Mass/Vol] 143 mg/dL Normal 55-199 [facility] Comment on above: Performed By: #### 2 [id number] #### [facility] [address] [place] [address] Potassium [Moles/Vol] 4.0 mmol/L Normal 3.5-5.3 [facility] Comment on above: Performed By: #### 2 391160 #### [facility] [address] [place] [address] Sodium [Moles/Vol] 139 mmol/L Normal 135-145 [facility] Comment on above: Performed By: #### 2 654963 #### [facility] [address] [place] [address] Urea nitrogen [Mass/Vol] 23 mg/dL High 5-21 [facility] Comment on above: Performed By: #### 2 759515 #### [facility] [address] [place] [address] Urea nitrogen/Creatinine [Mass ratio] 38 No Units High 10-20 [facility] Comment on above: Performed By: #### 2 930709 #### [facility] [address] [place] [address] BNPon 4 Int Ctr BNP Pass Normal [facility] Comment on above: Performed By: #### 1 [id number] #### [facility] [address] [place] [address] Natriuretic peptide B (Bld) [Mass/Vol] 17 pg/mL Normal 5-80 [facility] Comment on above: Performed By: #### 1 [id number] #### [facility] [address] [place] [address] CBC w/ Auto Diffon 4 Basophils/100 WBC (Bld) 0.1 % Normal 0.0-2.0 [facility] Comment on above: Performed By: #### 2 [id number] #### [facility] [address] [place] [address] Basophils/Leukocytes Auto (Bld) [Pure # fraction] 0.0 E9/L Normal 0.0-0.2 [facility] Comment on above: Performed By: #### 2 267250 #### [facility] [address] [place] [address] Eosinophils (Bld) [#/Vol] 0.0 E9/L Normal 0.0-0.5 [facility] Comment on above: Performed By: #### 2 747757 #### [facility] [address] [place] [address] Eosinophils/100 WBC (Bld) 0.0 % Normal 0.0-8.0 [facility] Comment on above: Performed By: #### 2 258100 #### [facility] [address] [place] [address] Erythrocyte distribution width (RBC) [Ratio] 15.8 % High 10.9-14.2 [facility] Comment on above: Performed By: #### 2 389369 #### [facility] [address] [place] [address] Hematocrit (Bld) [Volume fraction] 40.9 % Normal 34.0-46.0 [facility] Comment on above: Performed By: #### 2 [id number] #### [facility] [address] [place] [address] Hemoglobin (Bld) [Mass/Vol] 13.3 g/dL Normal 12.0-16.0 [facility] Comment on above: Performed By: #### 2 006019 #### [facility] [address] [place] [address] Lymphocytes (Bld) [#/Vol] 0.9 E9/L Low 1.0-4.0 [facility] Comment on above: Performed By: #### 2 087407 #### [facility] [address] [place] [address] Lymphocytes/100 WBC (Bld) 5.0 % Low 14.0-50.0 [facility] Comment on above: Performed By: #### 2 100050 #### [facility] [address] [place] [address] MCH (RBC) [Entitic mass] 28.4 pg Normal 27.0-34.0 [facility] Comment on above: Performed By: #### 2 [id number] #### [facility] [address] [place] [address] MCHC (RBC) [Mass/Vol] 32.4 g/dL Normal 31.4-36.0 [facility] Comment on above: Performed By: #### 2 434454 #### [facility] [address] [place] [address] MCV (RBC) [Entitic vol] 87.6 fL Normal 80.0-100.0 [facility] Comment on above: Performed By: #### 2 123412 #### [facility] [address] [place] [address] Monocytes (Bld) [#/Vol] 0.4 E9/L Normal 0.2-1.0 [facility] Comment on above: Performed By: #### 2 001123 #### [facility] [address] [place] [address] Neutrophils (Bld) [#/Vol] 16.5 E9/L High 2.0-7.5 [facility] Comment on above: Performed By: #### 2 983322 #### [facility] [address] [place] [address] Neutrophils/100 WBC (Bld) 92.4 % High 36.0-75.0 [facility] Comment on above: Performed By: #### 2 496659 #### [facility] [address] [place] [address] Platelet mean volume (Bld) [Entitic vol] 7.6 fL Normal 6.4-10.8 [facility] Comment on above: Performed By: #### 2 [id number] #### [facility] [address] [place] [address] Platelets (Bld) [#/Vol] 211.0 E9/L Normal 150.0-500.0 [facility] Comment on above: Performed By: #### 2 453208 #### [facility] [address] [place] [address] RBC (Bld) [#/Vol] 4.7 E12/L Normal 4.3-5.9 [facility] Comment on above: Performed By: #### 2 [id number] #### [facility] [address] [place] [address] WBC corrected for nucl RBC Auto (Bld) [#/Vol] 17.9 E9/L High 4.0-11.0 [facility] Comment on above: Performed By: #### 2 681202 #### [facility] [address] [place] [address] CHEMISTRYOrdered By: Tina ferreira on 01-05-2024 HbA1c (Bld) [Mass fraction] 6.2 % High <=5.9% [facility] ChemAutoSS CHEMISTRYOrdered By: SYSTEM SYSTEM on 01-05-2024 [...] 17 pg/mL Normal 5 - 80 pg/mL [facility] CRPon 01-05-2024 CRP [Mass/Vol] 0.9 mg/dL Normal <=1.9 [facility] Comment on above: Performed By: #### 2 599105 #### [facility] [address] [place] [address] Capillary Glucose POCon Glucose [Mass/Vol] 234 mg/dL High 55-99 [facility] Comment on above: Result Comment: Sugar muhammad RN/ Performed By: #### 2 [id number] #### [facility] [address] [place] [address] Glucose [Mass/Vol] 221 mg/dL High 55-99 [facility] Comment on above: Result Comment: Sugar WALKER Performed By: #### 2 [id number] #### [facility] [address] [place] [address] Glucose [Mass/Vol] 144 mg/dL High 55-99 [facility] Comment on above: Result Comment: Sugar WALKER Performed By: #### 2 [id number] #### [facility] [address] [place] [address] Glucose [Mass/Vol] 157 mg/dL High 55-99 [facility] Comment on above: Result Comment: Sugar WALKER Performed By: #### 2 [id number] #### [facility] [address] [place] [address] Free T4on 01-05-2024 Free T4 [Mass/Vol] 1.71 ng/dL High 0.58-1.64 [facility] Comment on above: Performed By: #### 2 [id number] #### [facility] [address] [place] [address] HEMATOLOGYOrdered By: SYSTEM SYSTEM on 01-05-2024 Basophils/100 [...] (Sput) 2+ Normal upper respiratory juanjose isolated [facility] Lipid Panelon 01-05-2024 Cholesterol [Mass/Vol] 211 mg/dL High 120-200 [facility] Comment on above: Performed By: #### 2 [id number] #### [facility] [address] [place] [address] Cholesterol in HDL [Mass/Vol] 86 mg/dL Invalid Interpretation Code [facility] Comment on above: Result Comment: '>= 60 LOW RISK' '<= 40 HIGH RISK' Performed By: #### 2 [id number] #### [facility] [address] [place] [address] Cholesterol in LDL [Mass/Vol] 97 mg/dL Normal <=129 [facility] Comment on above: Performed By: #### 2 [id number] #### [facility] [address] [place] [address] Cholesterol in VLDL [Mass/Vol] 16 mg/dL Normal 7-40 [facility] Comment on above: Performed By: #### 2 [id number] #### [facility] [address] [place] [address] Triglyceride [Mass/Vol] 78 mg/dL Normal <=149 [facility] Comment on above: Performed By: #### 2 [id number] #### [facility] [address] [place] [address] No Panel InformationOrdered By: Bebe Sanches on 01-05-2024 GS Occasional epithelial cells Occasional White Blood Cells 1+ Gram Positive Cocci [facility] TSH With T4fr Reflexon 01-04 TSH Qn m[IU]/L Low 0.34-5.60 [facility] Comment on above: Performed By: #### 1 [id number] #### [facility] [address] [place] [address] Troponinon 01-05-2024 Troponin HS 5.10 pg/mL Low 10.10-27.10 [facility] Comment on above: Result Comment: The 95% CI (Confidence Interval) PPV (Positive Predictive Value) for myocardial infarction in females is 38 pg/mL, in males 51 pg/mL. The results should be used in conjunction with clinical conditions of myocardial infarction. (Access High Sensitivity Troponin I Instructions For Use, Dheeraj Talisha, January 2018) Performed By: #### 2 [id number] #### [facility] [address] [place] [address] eGFRon 01-05-2024 eGFR 100 mL/min/1.73 m2 Normal >=59 [facility] Comment on above: Order Comment: Order added by Discern Expert. Performed By: #### 1 [id number] #### [facility] [address] [place] [address] BMPon 01-04-2024 Anion gap [Moles/Vol] 14 mmol/L Normal 6-16 [facility] Comment on above: Performed By: #### 2 [id number] #### [facility] [address] [place] [address] Calcium [Mass/Vol] 8.3 mg/dL Low 8.9-11.1 [facility] Comment on above: Performed By: #### 2 [id number] #### [facility] [address] [place] [address] Chloride [Moles/Vol] 103 mmol/L Normal 101-111 [facility] Comment on above: Performed By: #### 2 [id number] #### [facility] [address] [place] [address] CO2 [Moles/Vol] 26 mmol/L Normal 21-31 [facility] Comment on above: Performed By: #### 2 [id number] #### [facility] [address] [place] [address] Creatinine [Mass/Vol] 0.7 mg/dL Normal 0.5-1.3 [facility] Comment on above: Performed By: #### 2 [id number] #### [facility] [address] [place] [address] Glucose [Mass/Vol] 195 mg/dL Normal 55-199 [facility] Comment on above: Performed By: #### 2 [id number] #### [facility] [address] [place] [address] Potassium [Moles/Vol] 4.6 mmol/L Normal 3.5-5.3 [facility] Comment on above: Performed By: #### 2 [id number] #### [facility] [address] [place] [address] Sodium [Moles/Vol] 138 mmol/L Normal 135-145 [facility] Comment on above: Performed By: #### 2 [id number] #### [facility] [address] [place] [address] Urea nitrogen [Mass/Vol] 28 mg/dL High 5-21 [facility] Comment on above: Performed By: #### 2 [id number] #### [facility] [address] [place] [address] Urea nitrogen/Creatinine [Mass ratio] 40 No Units High 10-20 [facility] Comment on above: Performed By: #### 2 [id number] #### [facility] [address] [place] [address] BNPon 01-04-2024 Int Ctr BNP Pass Normal [facility] Comment on above: Performed By: #### 1 [id number] #### [facility] [address] [place] [address] Natriuretic peptide B (Bld) [Mass/Vol] 10 pg/mL Normal 5-80 [facility] Comment on above: Performed By: #### 1 [id number] #### [facility] [address] [place] [address] Blood Gas Art, with Lytes, G tonja, [place] 01-04-2024 a/A Ratio Art 57.20 % Normal >=0.80 [facility] Comment on above: Performed By: #### 4 [id number] #### [facility] [address] [place] [address] AaDO2 Art 44.7 mmHg High 5.0-15.0 [facility] Comment on above: Performed By: #### 4 [id number] #### [facility] [address] [place] [address] Allens Test Positive Normal [facility] Comment on above: Performed By: #### 4 [id number] #### [facility] [address] [place] [address] Base Excess Arterial 2.8 mmol/L Normal >=2.8 [facility] Comment on above: Performed By: #### 4 [id number] #### [facility] [address] [place] [address] cCa2+ Art 4.60 mg/dL Normal 4.40-5.30 [facility] Comment on above: Performed By: #### 4 [id number] #### [facility] [address] [place] [address] cCl- Art 103.0 mmol/L Normal 101.0-111.0 [facility] Comment on above: Performed By: #### 4 [id number] #### [facility] [address] [place] [address] cGlu Art 182 mg/dL High 55-99 [facility] Comment on above: Performed By: #### 4 [id number] #### [facility] [address] [place] [address] cK+ Art 4.0 mmol/L Normal 3.5-5.3 [facility] Comment on above: Performed By: #### 4 [id number] #### [facility] [address] [place] [address] cLac Art 3.3 mmol/L High .5-2.2 [facility] Comment on above: Performed By: #### 4 [id number] #### [facility] [address] [place] [address] dry cleaning manager+ Art 141.0 mmol/L Normal 135.0-145.0 [facility] Comment on above: Performed By: #### 4 [id number] #### [facility] [address] [place] [address] Drawn by KD Invalid Interpretation Code [facility] Comment on above: Performed By: #### 4 [id number] #### [facility] [address] [place] [address] FCOHb Art 1.2 % Low 1.5-4.9 [facility] Comment on above: Result Comment: Refe rence range Nonsmoker <1.5% Smoker <5.0% Heavy Smoker <9.0% Performed By: #### 4 [id number] #### [facility] [address] [place] [address] FIO2 BG 21 Invalid Interpretation Code [facility] Comment on above: Performed By: #### 4 [id number] #### [facility] [address] [place] [address] FMetHb Art 0.1 % Normal 0.0-1.9 [facility] Comment on above: Performed By: #### 4 [id number] #### [facility] [address] [place] [address] FO2Hb Art 91.0 % Low 92.0-100.0 [facility] Comment on above: Performed By: #### 4 [id number] #### [facility] [address] [place] [address] HCO3 (Bld) [Moles/Vol] 26.7 mmol/L High 22.0-26.0 [facility] Comment on above: Performed By: #### 4 [id number] #### [facility] [address] [place] [address] Hemoglobin (Bld) [Mass/Vol] 12.7 g/dL Normal 12.0-16.0 [facility] Comment on above: Performed By: #### 4 [id number] #### [facility] [address] [place] [address] Oxygen saturation in Blood 92.2 % Low 95.0-100.0 [facility] Comment on above: Performed By: #### 4 [id number] #### [facility] [address] [place] [address] P CO2 Arterial 36.2 mmHg Normal 35.0-45.0 [facility] Comment on above: Performed By: #### 4 [id number] #### [facility] [address] [place] [address] P O2 Arterial 59.6 mmHg Low 80.0-100.0 [facility] Comment on above: Performed By: #### 4 [id number] #### [facility] [address] [place] [address] pH Arterial 7.470 High 7.350-7.450 [facility] Comment on above: Performed By: #### 4 [id number] #### [facility] [address] [place] [address] Sample Site R Radial Normal [facility] Comment on above: Performed By: #### 4 [id number] #### [facility] [address] [place] [address] Sample Type Arterial Draw Normal [facility] Comment on above: Performed By: #### 4 [id number] #### [facility] [address] [place] [address] CBC w/ Auto Diffon 4 Basophils/100 WBC (Bld) 0.2 % Normal 0.0-2.0 [facility] Comment on above: Performed By: #### 2 [id number] #### [facility] [address] [place] [address] Basophils/Leukocytes Auto (Bld) [Pure # fraction] 0.0 E9/L Normal 0.0-0.2 [facility] Comment on above: Performed By: #### 2 [id number] #### [facility] [address] [place] [address] Eosinophils (Bld) [#/Vol] 0.0 E9/L Normal 0.0-0.5 [facility] Comment on above: Performed By: #### 2 [id number] #### [facility] [address] [place] [address] Eosinophils/100 WBC (Bld) 0.0 % Normal 0.0-8.0 [facility] Comment on above: Performed By: #### 2 [id number] #### [facility] [address] [place] [address] Erythrocyte distribution width (RBC) [Ratio] 16.0 % High 10.9-14.2 [facility] Comment on above: Performed By: #### 2 [id number] #### [facility] [address] [place] [address] Hematocrit (Bld) [Volume fraction] 37.5 % Normal 34.0-46.0 [facility] Comment on above: Performed By: #### 2 [id number] #### [facility] [address] [place] [address] Hemoglobin (Bld) [Mass/Vol] 12.6 g/dL Normal 12.0-16.0 [facility] Comment on above: Performed By: #### 2 [id number] #### [facility] [address] [place] [address] Lymphocytes (Bld) [#/Vol] 0.5 E9/L Low 1.0-4.0 [facility] Comment on above: Performed By: #### 2 [id number] #### [facility] [address] [place] [address] Lymphocytes/100 WBC (Bld) 2.5 % Low 14.0-50.0 [facility] Comment on above: Performed By: #### 2 549798 #### [facility] [address] [place] [address] MCH (RBC) [Entitic mass] 29.2 pg Normal 27.0-34.0 [facility] Comment on above: Performed By: #### 2 [id number] #### [facility] [address] [place] [address] MCHC (RBC) [Mass/Vol] 33.5 g/dL Normal 31.4-36.0 [facility] Comment on above: Performed By: #### 2 768075 #### [facility] [address] [place] [address] MCV (RBC) [Entitic vol] 87.2 fL Normal 80.0-100.0 [facility] Comment on above: Performed By: #### 2 [id number] #### [facility] [address] [place] [address] Monocytes (Bld) [#/Vol] 0.3 E9/L Normal 0.2-1.0 [facility] Comment on above: Performed By: #### 2 [id number] #### [facility] [address] [place] [address] Neutrophils (Bld) [#/Vol] 18.0 E9/L High 2.0-7.5 [facility] Comment on above: Performed By: #### 2 [id number] #### [facility] [address] [place] [address] Neutrophils/100 WBC (Bld) 95.7 % High 36.0-75.0 [facility] Comment on above: Performed By: #### 2 [id number] #### [facility] [address] [place] [address] Platelet 233.0 E9/L Normal 150.0-500.0 [facility] Comment on above: Performed By: #### 2 [id number] #### [facility] [address] [place] [address] Platelet mean volume (Bld) [Entitic vol] 7.4 fL Normal 6.4-10.8 [facility] Comment on above: Performed By: #### 2 [id number] #### [facility] [address] [place] [address] RBC (Bld) [#/Vol] 4.3 E12/L Normal 4.3-5.9 [facility] Comment on above: Performed By: #### 2 [id number] #### [facility] [address] [place] [address] WBC corrected for nucl RBC Auto (Bld) [#/Vol] 18.9 E9/L High 4.0-11.0 [facility] Comment on above: Result Comment: Merary pheral smear review performed. Performed By: #### 2 [id number] #### [facility] [address] [place] [address] CHEMISTRYOrdered By: SYSTEM SYSTEM on 01-04-2024 Lactic [...] High Sensitivity Troponin I Instructions For Use, Vend, January 2018) Troponin HS 4.90 pg/mL Low 10.10 - 27.10 pg/mL [facility] Comment on above: Interpretive Data: T he 95% CI (Confidence Interval) PPV (Positive Predictive Value) for myocardial infarction in females is 38 pg/mL, in males 51 pg/mL. The results should be used in conjunction with clinical conditions of myocardial infarction. (Access High Sensitivity Troponin I Instructions For Use, Vend, January 2018) CHEMISTRYOrdered By: Bjorn Ta on 01-04-2024 Natriuretic peptide B (Bld) [Mass/Vol] 10 pg/mL Normal 5 - 80 pg/mL [facility] COAGULATIONOrdered By: Sandra Ta on 01-04-2024 aPTT Coag (PPP) [Time] 25.0 s Low 25.1 - 36.5 second(s) [facility] Auto Coag Comment on above: Interpretive Data: [...] the same coagulation reagent and instrumentation as [facility]. Currently there are no coagulation studies available worldwide for children to 14 days, and no normal ranges. Heparin therapeutic range (represented by Anti-Factor Xa activity of 0.2 - 0.4 U/mL) corresponds to PTT of 56.6 - 109.0 sec. INR Coag (PPP) [Relative time] 1.03 {INR} Invalid Interpretation Code [facility] Coag Comment on above: Interpretive Data: I NR results are specifically intended to assess patients stabilized on long-term Anticoagulation therapy suggested INR s Less Intensive Anticoagulation 2.0 3.0 Conventional Range 3.0 4.5 PT Coag (PPP) [Time] 11.5 s Normal 9.4 - 1 2.5 second(s) [facility] Auto Coag Comment on above: Interpretive Data: [...] the same coagulation reagent and instrumentation as [facility]. Currently there are no coagulation studies available [...] 370 Contrast amount in ml's: 75 Normal [facility] ED Clinical Summaryon 2023 ED Clinical Summary ED Clinical Summary [place] [id number] ED Clinical Summary Person Information Name: CAROLINA GUTIERREZ [facility] Age: 63 Years : 1960 Sex: Female Language: Macanese PCP: Berry Canales Marital Status: Phone: [phone] Visit Id: Visit Reason: Cough; Shortness of breath; TROUBLE BREATHING Speciality: Acuity: 2 Enc Type: Inpatient Med Service: Medical Arrival: 01/04/2024 15:52:06 Discharge: LOS: 000 05:07 Checkin: 01/04/2024 15:52:06 Checkout: 01/04/2024 20:59:34 Dispo Type: Admitted as IP to this [facility] EVENTS: Event Name Event Status Request Date/Time [...] 20:51:43 Patient Care Request 01/04/2024 20:51:43 ADDRESS: [address] [place] [address] [phone] PHYS DOC NOTES: MEDICAL INFORMATION: Prescriptions Given: [...] mg Cota (more content not included)... Normal [facility] ED Clinical Summary ED Clinical Summary [place] [id number] ED Clinical Summary Person Information Name: CAROLINA GUTIERREZ/[facility] Age: 63 Years : 1960 Sex: Female Language: Macanese PCP: Berry Canales Marital Status: Phone: [phone] Visit Id: Visit Reason: Cough; Shortness of [...] 01/04/2024 17:37:56 Lab Inlab 01/04/2024 17:37:56 ADDRESS: [address] [place] [address] [phone] PHYS DOC NOTES: MEDICAL INFORMATION: Prescriptions Given: [...] exacerbation; CAP (community acquired pneumonia); Hypoxia Normal [facility] ED Note-Nursingon 01-04-2024 ED Note-Nursing ED Note-Nursing pt up to use the restroom with the POCT, taken off o2 to do so. when pt was back in bed, o2 had dropped to 82% on RA, up to 88% after sitting for 1 min, then up to 95% on 2LNC Normal [facility] ED Patient Education Noteon 01-04-2024 ED Patient Education Note ED Patient Education Note Normal [facility] ED Patient Education Note ED Patient Education Note Normal [facility] ED Patient Summaryon ED Patient Summary ED Patient Summary [place] [id number] Patient Discharge Instructions Person Information Name: CAROLINA GUTIERREZ Age: 63 Years Arrival Date: 01/04/2024 15:52:06 Discharge Diagnosis: Acidosis, lactic; Asthma exacerbation; CAP (community acquired pneumonia); Hypoxia Primary Care Physician: Berry Canales Provider Information Primary Provider: Naveen Martin DO Advanced Repairer Finished Metal:Keisha Garsia PA-C. The exam and treatment you received in the Emergency Department were for an urgent problem and are not intended as complete care. It is important that you follow up with a doctor, nurse practitioner, or physician?s dental assistant instructor for ongoing care. If your symptoms become [...] opioids can be used to help relieve clqevcll-fk-oyxtcd pain and are often prescribed following a [...] be struggling with addiction, tell your health pet care worker and ask for guidance or call [facility]?S National Helpline at 6-002-240-RWPK. p Source: [place] Department of Health and Human Services/Center for Disease Control & Prevention (more content not included)... Normal [facility] ED Patient Summary ED Patient Summary [place] [id number] Patient Discharge Instructions Person Information Name: CAROLINA GUTIERREZ Age: 63 Years Arrival Date: 01/04/2024 15:52:06 Discharge Diagnosis: Asthma exacerbation; CAP (community acquired pneumonia); Hypoxia Primary Care Physician: Berry Canales Provider Information Primary Provider: Naveen Martin DO Advanced Repairer Finished Metal:Keisha Garsia PA-C. The exam and treatment you received in the Emergency Department were for an urgent problem and are not intended as complete care. It is important that you follow up with a doctor, nurse practitioner, or physician?s dental assistant instructor for ongoing care. If your symptoms become [...] opioids can be used to help relieve xupxijrc-hz-jniglo pain and are often prescribed following a [...] be struggling with addiction, tell your health pet care worker and ask for guidance or call [facility]?S National Helpline at 0-527-072-EGKD. l Source: [place] Department of Health and Human Services/Center for Disease Control & Prevention [facility] (more content not included)... Normal [facility] FT Blood GasesOrdered By: Ra louise [...] 2.2 mmol/L [facility] Res p Auto SS dry cleaning manager+ Art 141.0 mmol/L Normal 135.0 - 145.0 mmol/L [facility] Resp Auto SS Drawn by KD Invalid Interpretation Code [facility] Resp Auto SS FCOHb Art 1.2 % Low 1.5 - 4.9 % [facility] Resp Auto SS Comment on above: Interpretive Data: R eference range Nonsmoker <1.5% Smoker <5.0% Heavy Smoker <9.0% FIO2 BG 21 1 Invalid Interpretation Code [facility] Resp Auto SS FMetHb Art 0.1 % Normal 0.0 - 1.9 % [facility] Resp Auto SS FO2Hb Art 91.0 % Low 92.0 - 100.0 % [facility] Resp Auto SS HCO3 (Bld) [Moles/Vol] 26.7 mmol/L High 22.0 - 26.0 mmol/L [facility] Resp Auto SS Hemoglobin (Bld) [Mass/Vol] 12.7 g/dL Normal 12.0 - 16.0 gm/dL [facility] Resp Auto SS P CO2 Arterial 36.2 mm[Hg] Normal 35.0 - 45.0 mmHg [facility] Resp Auto SS P O2 Arterial 59.6 mm[Hg] Low 80.0 - 100.0 mmHg [facility] Resp Auto SS pH (Bld) 7.470 [pH] High 7.350 - 7.450 [facility] Resp Auto SS Sample Site R Radial (01/04/24 4:48 PM) Normal [facility] Auto SS Sample Type Arterial Draw (01/04/24 4:48 PM) Normal [facility] Auto SS Lactic Acidon 01-04-2024 Lactic Acid Lvl 2.0 mmol/L Normal 0.5-2.2 [facility] Comment on above: Order Comment: Order added by EKS Rule. (FT_LACTIC_ACID_REFLEX) Adds reflex Lactic Acid 4 hours after initial if result is greater than or equal to 2.0. Performed By: #### 2 [id number] #### [facility] [address] [place] [address] Lactic Acid Lvl 2.7 mmol/L High 0.5-2.2 [facility] Comment on above: Performed By: #### 2 [id number] #### [facility] [address] [place] [address] No Panel InformationOrdered By: ANGPROCESSSERVER MICROBIOLOGY on 01-04-2024 Blood Culture Charcoal No growth at 3 days. Final to follow at 7 days. [facility] Blood Culture Charcoal No growth at 3 days. Final to follow at 7 days. [facility] PT & PTTon 01-04-2024 aPTT Coag (PPP) [Time] 25.0 second(s) Low 25.1-36.5 [facility] Comment on above: Result Comment: Para [...] the same coagulation reagent and instrumentation as [facility]. Currently there are no coagulation studies available worldwide for children to 14 days, and no normal ranges. Heparin therapeutic range (represented by Anti-Factor Xa activity of 0.2 - 0.4 U/mL) corresponds to PTT of 56.6 - 109.0 sec. Performed By: #### 1 [id number] #### [facility] [address] [place] [address] INR Coag (PPP) [Relative time] 1.03 {INR} Invalid Interpretation Code [facility] Comment on above: Result Comment: INR results are specifically intended to assess patients stabilized on long-term Anticoagulation therapy suggested INR?s ?Less Intensive Anticoagulation? 2.0 ? 3.0 Conventional Range 3.0 ? 4.5 Performed By: #### 1 [id number] #### [facility] [address] [place] [address] PT Coag (PPP) [Time] 11.5 second(s) Normal 9.4-12.5 [facility] Comment on above: Result Comment: 15 [...] the same coagulation reagent and instrumentation as [facility]. Currently there are no coagulation studies available worldwide for children to 14 days, and no normal ranges. Performed By: #### 1 [id number] #### [facility] [address] [place] [address] Troponin 0 Hr.on 01-04-2024 Troponin HS 4.90 pg/mL Low 10.10-27.10 [facility] Comment on above: Result Comment: The 95% CI (Confidence Interval) PPV (Positive Predictive Value) for myocardial infarction in females is 38 pg/mL, in males 51 pg/mL. The results should be used in conjunction with clinical conditions of myocardial infarction. (Access High Sensitivity Troponin I Instructions For Use, Vend, January 2018) Performed By: #### 1 [id number] #### [facility] [address] [place] [address] Troponin 1 Hr.on 01-04-2024 Troponin HS 5.90 pg/mL Low 10.10-27.10 [facility] Comment on above: Order Comment: @ 174 7 Result Comment: The 95% CI (Confidence Interval) PPV (Positive Predictive Value) for myocardial infarction in females is 38 pg/mL, in males 51 pg/mL. The results should be used in conjunction with clinical conditions of myocardial infarction. (Access High Sensitivity Troponin I Instructions For Use, Vend, January 2018) Performed By: #### 1 [id number] #### [facility] [address] [place] [address] eGFRon 01-04-2024 eGFR 96 mL/min/1.73 m2 Normal >=59 [facility] Comment on above: Order Comment: Order added by Discern Expert. Performed By: #### 1 [id number] #### [facility] [address] [place] [address] Ambulatory Visit Summaryon 0 12-31-2023 Ambulatory Visit [...] 3:20 PM EDT With: Berry Canales Where: [facility] [place] Normal [facility] Medicine Office/Clini c Noteon 12-31-2023 Family Medicine Office/Clinic Note Family Medicine Office/Clinic Note HPI Staff Carolina is a 63 year old female presenting for ER follow up ER followup: Hospital: [facility] Visit date: 12/29/23 Symptoms the patient presented [...] q6hr for cough, 120 mL, Refill(s) 0, [facility]/pharmacy #[id number], 154, cm, 12/31/23 14:02:00 EDT, Height/Length [...] inhalation aeros (more content not included)... Normal [facility] Comment on above: Result Comment: Elec [...] and Complexity of Problems Differential Diagnosis: [] [facility] Data External documents reviewed: [] My [...] mL, Ora (more content not included)... Normal [facility] Comment on above: Result Comment: Elec [...] effusion is evident. Partially included within the kqfni-kz-uksa is a metallic left glenohumeral shoulder prosthesis. No significant change is noted when compared to the prior exam. Ordering Provider: Edagr Delarosa FINAL REPORT Dictated: 12/30/2023 7:41 am Franklin Carter M.D. Signed (Electronic Signature): 12/30/2023 7:41 am Signed by: Franklin Carter M.D. Transcribed by: FRANCISCA Technologist: ARIANE Technical Comments Radiation Dose: Ka,r in mGy = na DAP = na Normal [facility] BMPon 12-29-2023 Anion gap [Moles/Vol] 14 mmol/L Normal 6-16 [facility] Comment on above: Performed By: #### 2 [id number] #### [facility] [address] [place] [address] Calcium [Mass/Vol] 8.6 mg/dL Low 8.9-11.1 [facility] Comment on above: Performed By: #### 2 [id number] #### [facility] [address] [place] [address] Chloride [Moles/Vol] 104 mmol/L Normal 101-111 [facility] Comment on above: Performed By: #### 2 [id number] #### [facility] [address] [place] [address] CO2 [Moles/Vol] 27 mmol/L Normal 21-31 [facility] Comment on above: Performed By: #### 2 [id number] #### [facility] [address] [place] [address] Creatinine [Mass/Vol] 0.7 mg/dL Normal 0.5-1.3 [facility] Comment on above: Performed By: #### 2 547307 #### [facility] [address] [place] [address] Glucose [Mass/Vol] 205 mg/dL High 55-199 [facility] Comment on above: Performed By: #### 2 612058 #### [facility] [address] [place] [address] Potassium [Moles/Vol] 4.0 mmol/L Normal 3.5-5.3 [facility] Comment on above: Performed By: #### 2 474576 #### [facility] [address] [place] [address] Sodium [Moles/Vol] 141 mmol/L Normal 135-145 [facility] Comment on above: Performed By: #### 2 184187 #### [facility] [address] [place] [address] Urea nitrogen [Mass/Vol] 21 mg/dL Normal 5-21 [facility] Comment on above: Performed By: #### 2 897593 #### [facility] [address] [place] [address] Urea nitrogen/Creatinine [Mass ratio] 30 No Units High 10-20 [facility] Comment on above: Performed By: #### 2 [id number] #### [facility] [address] [place] [address] BNPon 12-29-2023 Int Ctr BNP Pass Normal [facility] Comment on above: Performed By: #### 1 [id number] #### [facility] [address] [place] [address] Natriuretic peptide B (Bld) [Mass/Vol] 10 pg/mL Normal 5-80 [facility] Comment on above: Performed By: #### 1 [id number] #### [facility] [address] [place] [address] CBC w/ Auto Diffon 4 Basophils/100 WBC (Bld) 0.4 % Normal 0.0-2.0 [facility] Comment on above: Performed By: #### 2 056259 #### [facility] [address] [place] [address] Basophils/Leukocytes Auto (Bld) [Pure # fraction] 0.1 E9/L Normal 0.0-0.2 [facility] Comment on above: Performed By: #### 2 526331 #### [facility] [address] [place] [address] Eosinophils (Bld) [#/Vol] 0.0 E9/L Normal 0.0-0.5 [facility] Comment on above: Performed By: #### 2 430810 #### [facility] [address] [place] [address] Eosinophils/100 WBC (Bld) 0.0 % Normal 0.0-8.0 [facility] Comment on above: Performed By: #### 2 471432 #### [facility] [address] [place] [address] Lymphocytes (Bld) [#/Vol] 0.6 E9/L Low 1.0-4.0 [facility] Comment on above: Performed By: #### 2 841354 #### [facility] [address] [place] [address] Lymphocytes/100 WBC (Bld) 3.8 % Low 14.0-50.0 [facility] Comment on above: Performed By: #### 2 159405 #### [facility] [address] [place] [address] Monocytes (Bld) [#/Vol] 0.5 E9/L Normal 0.2-1.0 [facility] Comment on above: Performed By: #### 2 744864 #### [facility] [address] [place] [address] Neutrophils (Bld) [#/Vol] 15.6 E9/L High 2.0-7.5 [facility] Comment on above: Performed By: #### 2 397926 #### [facility] [address] [place] [address] Neutrophils/100 WBC (Bld) 92.8 % High 36.0-75.0 [facility] Comment on above: Performed By: #### 2 775513 #### [facility] [address] [place] [address] Erythrocyte distribution width (RBC) [Ratio] 15.8 % High 10.9-14.2 [facility] Comment on above: Performed By: #### 2 163979 #### [facility] [address] [place] [address] Hematocrit (Bld) [Volume fraction] 39.9 % Normal 34.0-46.0 [facility] Comment on above: Performed By: #### 2 557094 #### [facility] [address] [place] [address] Hemoglobin (Bld) [Mass/Vol] 13.2 g/dL Normal 12.0-16.0 [facility] Comment on above: Performed By: #### 2 003754 #### [facility] [address] [place] [address] MCH (RBC) [Entitic mass] 29.2 pg Normal 27.0-34.0 [facility] Comment on above: Performed By: #### 2 462835 #### [facility] [address] [place] [address] MCHC (RBC) [Mass/Vol] 33.1 g/dL Normal 31.4-36.0 [facility] Comment on above: Performed By: #### 2 524924 #### [facility] [address] [place] [address] MCV (RBC) [Entitic vol] 88.0 fL Normal 80.0-100.0 [facility] Comment on above: Performed By: #### 2 805939 #### [facility] [address] [place] [address] Platelet 306.0 E9/L Normal 150.0-500.0 [facility] Comment on above: Performed By: #### 2 532227 #### [facility] [address] [place] [address] Platelet mean volume (Bld) [Entitic vol] 6.9 fL Normal 6.4-10.8 [facility] Comment on above: Performed By: #### 2 775254 #### [facility] [address] [place] [address] RBC (Bld) [#/Vol] 4.5 E12/L Normal 4.3-5.9 [facility] Comment on above: Performed By: #### 2 825665 #### [facility] [address] [place] [address] WBC corrected for nucl RBC Auto (Bld) [#/Vol] 16.9 E9/L High 4.0-11.0 [facility] Comment on above: Performed By: #### 2 202865 #### [facility] [address] [place] [address] CHEMISTRYOrdered By: SYSTEM SYSTEM on 12-29-2023 Troponin [...] High Sensitivity Troponin I Instructions For Use, Vend, January 2018) Anion gap [Moles/Vol] 14 mmol/L [...] High Sensitivity Troponin I Instructions For Use, Vend, January 2018) Urea nitrogen [Mass/Vol] 21 mg/dL Normal 5 - 21 mg/dL [facility] Urea nitrogen/Creatinine [Mass ratio] 30 mg/mg High 10 - 20 [facility] CHEMISTRYOrdered By: Enedina nguyen on 12-29-2023 Natriuretic peptide B (Bld) [Mass/Vol] 10 pg/mL Normal 5 - 80 pg/mL [facility] COAGULATIONOrdered By: Enedina Padgett on 12-29-2023 aPTT Coag (PPP) [Time] 26.9 s Normal 25.1 - 36.5 second(s) [facility] Comment on above: Interpretive Data: [...] the same coagulation reagent and instrumentation as [facility]. Currently there are no coagulation studies available worldwide for children to 14 days, and no normal ranges. Heparin therapeutic range (represented by Anti-Factor Xa activity of 0.2 - 0.4 U/mL) corresponds to PTT of 56.6 - 109.0 sec. INR Coag (PPP) [Relative time] 1.02 {INR} Invalid Interpretation Code [facility] Comment on above: Interpretive Data: I NR results are specifically intended to assess patients stabilized on long-term Anticoagulation therapy suggested INR s Less Intensive Anticoagulation 2.0 3.0 Conventional Range 3.0 4.5 PT Coag (PPP) [Time] 11.4 s Normal 9.4 - 1 2.5 second(s) [facility] Comment on above: Interpretive Data: [...] the same coagulation reagent and instrumentation as [facility]. Currently there are no coagulation studies available worldwide for children to 14 days, and no normal ranges. ED Clinical Summaryon 2023 ED Clinical Summary ED Clinical Summary [place] [id number] ED Clinical Summary Person Information Name: CAROLINA GUTIERREZ [facility] Age: 63 Years : 1960 Sex: Female Language: Macanese PCP: Silvestre Benavides MD Marital Status: Phone: [phone] Visit Id: Visit Reason: Cough; Shortness of [...] 12/29/2023 22:31:11 12/29/2023 22:31:11 12/29/2023 22:31:11 ADDRESS: [address] [place] [id number] PHYS DOC NOTES: MEDICAL INFORMATION: Prescriptions Given: New Medications [facility]/pharmacy #[id number], [address], [place] [phone], [phone] homatropine-hydrocod one (homatropine-hydroco done 1.5 mg-5 mg/5 mL oral syrup) 5 Milliliter By Mouth every 4 hours as needed for cough. Refills: 0. levofloxacin (levofloxacin 750 mg Tab) 1 Tablets By Mouth every 24 hours for 7 Days. Refills: 0. Medications to Continue Taking That Have Changed [facility]/pharmacy #[id number], [address], [place] [phone], [phone] START: albuterol-ipratropiu m (DuoNeb 2.5 mg-0.5 mg/3 [...] Adult, Easy-to (more content not included)... Normal [facility] ED Patient Summaryon 024 ED Patient Summary ED Patient Summary [place] [address] Patient Discharge Instructions Person Information Name: CAROLINA GUTIERREZ Age: 63 Years Arrival Date: 12/29/2023 20:26:48 Discharge Diagnosis: Asthma exacerbation; CAP (community acquired pneumonia) Primary Care Physician: Silvestre Benavides MD Provider Information Primary Provider: Gaston Contreras DO Advanced Repairer Finished Metal:None The exam and treatment you received in the Emergency Department were for an urgent problem and are not intended as complete care. It is important that you follow up with a doctor, nurse practitioner, or physician?s dental assistant instructor for ongoing care. If your symptoms become [...] provider. Patient Education Materials: Community-Acquired Pneumonia, Adult, Mwmt-kt-Enci; Asthma, Adult, Pbvj-gf-Gcfr A MESSAGE TO ALL PATIENTS REGARDING OPIOIDS PRESCRIPTION OPIOIDS: WHAT YOU NEED TO KNOW Prescription opioids can be used to help relieve uqlfjpzh-yl-mveube pain and are often prescribed following a [...] be struggling with addiction, tell your health pet care worker and ask for guidance or (more content not included)... Normal [facility] HEMATOLOGYOrdered By: SYSTEM SYSTEM on 12-29-2023 [...] Coag (PPP) [Time] 26.9 second(s) Normal 25.1-36.5 [facility] Comment on above: Result Comment: Para [...] - 109.0 sec. Performed By: #### 1 [id number] #### [facility] [address] [place] [address] INR Coag (PPP) [Relative time] 1.02 {INR} Invalid Interpretation Code [facility] Comment on above: Result Comment: INR results are specifically intended to assess patients stabilized on long-term Anticoagulation therapy suggested INR?s ?Less Intensive Anticoagulation? 2.0 ? 3.0 Conventional Range 3.0 ? 4.5 Performed By: #### 1 [id number] #### [facility] [address] [place] [address] PT Coag (PPP) [Time] 11.4 second(s) Normal 9.4-12.5 [facility] Comment on above: Result Comment: 15 [...] the same coagulation reagent and instrumentation as [facility]. Currently there are no coagulation studies available worldwide for children to 14 days, and no normal ranges. Performed By: #### 1 [id number] #### [facility] [address] [place] [address] Troponin 0 Hr.on 12-29-2023 Troponin HS 4.20 pg/mL Low 10.10-27.10 [facility] Comment on above: Result Comment: The 95% CI (Confidence Interval) PPV (Positive Predictive Value) for myocardial infarction in females is 38 pg/mL, in males 51 pg/mL. The results should be used in conjunction with clinical conditions of myocardial infarction. (Access High Sensitivity Troponin I Instructions For Use, Vend, January 2018) Performed By: #### 1 [id number] #### [facility] [address] [place] [address] Troponin 1 Hr.on 12-29-2023 Troponin HS 3.40 pg/mL Low 10.10-27.10 [facility] Comment on above: Order Comment: due a t 2144 Result Comment: The 95% CI (Confidence Interval) PPV (Positive Predictive Value) for myocardial infarction in females is 38 pg/mL, in males 51 pg/mL. The results should be used in conjunction with clinical conditions of myocardial infarction. (Access High Sensitivity Troponin I Instructions For Use, Vend, January 2018) Performed By: #### 1 [id number] #### [facility] [address] [place] [address] eGFRon 12-29-2023 eGFR 96 mL/min/1.73 m2 Normal >=59 [facility] Comment on above: Order Comment: Order added by Discern Expert. Performed By: #### 1 [id number] #### [facility] [address] [place] [address] Ambulatory Visit Summaryon 0 12-27-2023 Ambulatory Visit Summary Ambulatory Visit Summary CAROLINA GUTIERREZ :1960 Visit Date:12/27/2023 Ambulatory Visit Instructions Your Diagnosis Acute bronchitis with asthma BMI 40.0-44.9, adult Cough Your Care Team Attending Physician - Giovanny SAMANO, Albaro Iverson Primary Care Physician - Makayla HZD, Silvestre Linares This Is Your Medications List [...] Schedule the Following Appointments Follow Up with aMkayla HDZ, Silvestre Linares, [facility], MED When: Medications What How Much When Why Instructions New benzonatate (Tessalon 100 mg Cap) 1 Capsules By Mouth 3 times a day Acute bronchitis with asthma BMI 40.0-44.9, adult Duration: 7 Days Pickup at [facility]/pharmacy #6177 New doxycycline (doxycycline monohydrate 100 mg oral capsule) 1 Capsules By Mouth 2 times a day Acute bronchitis with asthma BMI 40.0-44.9, adult Duration: 7 Days Pickup at [facility]/pharmacy #6177 New predniSONE (predniSONE 20 mg Tab) 2 Tablets By Mouth Every day Acute bronchitis with asthma BMI 40.0-44.9, adult Duration: 5 Days Pickup at [facility]/pharmacy #6177 Unchanged albuterol (ProAir RespiClick 90 mcg/ [...] physician if questions or concerns Pharmacy Information [facility]/pharmacy #[id number]: [address], [place] [phone] Medications and Immunizations Administered Given DuoNeb 2.5 [...] of marci (more content not included)... Normal [facility] Family Medicine Office/Clini c Noteon 12-27-2023 [...] with voice recognition software. Occasional wrong-word or ?yzxup-s-yohl? substitutions may have occurred due to the inherent limitations of voice recognition software. 63 yo female with history of anemia, asthma, chronic sinusitis, colitis, hypothyroidism, history of PE, presents to [facility] care today with chief complaint of cough [...] Denies any history of coronary artery disease CA or CHF. Patient has no other concerns [...] You were se (more content not included)... [facility] Comment on above: Result Comment: Elec tronically Signed By: Giovanny SAMANO, Albaro Iverson\.dusty\Date and Time Signed: 12/27/23 15:48 EDT Consultation Noteon 12-17-19 Consultation Note [id number] #1.00TIFF [facility] Consultation Note [id number]# 1.00TIFF [facility] Ambulatory Visit Summaryon 0 11-27-2023 Ambulatory Visit [...] feedback a (more content not included)... Normal [facility] Family Medicine Office/Clini c Noteon 11-27-2023 [...] data available Patient Education Sinus Infection, Adult, Leji-fd-Zodn Problem List/Past Medical History Ongoing Allergic rhinitis [...] r (more content not included)... Normal [facility] Comment on above: Result Comment: Elec tronically [...] ? Medicines that treat allergies (antihistamines). ? Drph-yhp-lxmnwyf pain relievers. ? If caused by bacteria, your doctor may wait to see if you will get better without treatment. You may be given antibiotic medicine if you have: ? A very bad infection. ? A weak body defense system. ? If caused by growths in the nose, surgery may be needed. Follow these instructions at home: Medicines ? Take, use, or apply mslr-nrd-emfcjmv and prescription medicines only as told by [...] cannot use soap and water, use hand clerk of works. ? Do not smoke. Avoid being around [...] follow-up visits (more content not included)... [facility] - MISC [id number] #1.00TIFF [facility] Consultation Noteon 11-14-19 Consultation Note [id number]# 1.00TIFF [facility] Consultation Note [id number] #1.00TIFF [facility] Consultation Note [id number] #1.00TIFF [facility] Ambulatory Visit Summaryon 0 2023 Ambulatory Visit [...] choosing us for your care. Normal [facility] Medicine Office/Clini c Noteon 2023 Family Medicine Office/Clinic Note HPI Staff Carolina is a 62 year old female presenting to discuss CT scan Pt had CT scan at [facility] 10/26/23 show small nodules left lung up [...] # 30 cap(s), Refills(s) 1, Pharmacy: [id number], 143.2, cm, 09/18/23 17:04:00 EDT, Height/Length Dosing, 88.2, kg, 09/18/23 17:04:00 EDT, Weight Dosing 3. Non-smoker (Z78.9: Other specified health status) continue not smoking Ordered: doxycycline, 100 mg = 1 cap(s), Oral, BID, # 30 cap(s), Refills(s) 1, [id number] 143.2, cm, 09/18/23 17:04:00 EDT, Height/Length Dosing, 88.2, kg, 09/18/23 17:04:00 EDT, Weight Dosing Orders: methylPREDNISolone, = 1 packet(s), Oral, Once, as directed on package labeling, # 21 tab(s), Refills(s) 0, [id number], 143.2, cm, 09/18/23 17:04:00 EDT, Height/Length Dosing, 88.2, kg, 09/18/23 17:04:00 EDT, Weight Dosing predniSONE, See Instructions, TAKE 3 TABS DAILY X2 DAYS, THEN 2 TABS DAILY X3 DAYS, 1 TAB DAILY X3 DAYS, 1/2 TAB X 2 DAYS, # 16 tab(s), Refills(s) 1, [id number], 143.2, cm, 09/18/23 17:04:00 EDT, [...] Home/Environment - (more content not included)... Normal [facility] Comment on above: Result Comment: Elec tronically Signed By: Kirit MAGANA, Berry Olivas\.br\Date and Time Signed: 11/05/23 17:42 EDT Consultation Noteon 11-04-19 Consultation Note [id number] #1.00TIFF Normal [facility] RAD - CT Reporton 11-04-2023 RAD - CT Report [id number] #1.00TIFF Normal [facility] Auth for Release of Medical Recordson 10-31-2023 Auth for Release of Medical Records [id number] #1.00TIFF Normal [facility] CT SHOULDER WO IVCON LTon CT [...] aspect of the proximal humerus abuts the [place] glenoid. There is separation of the acromioclavicular [...] Right lung curvilinear opacities likely representing atelectasis. Gas Leak Tester (topogram) images: No significant additional findings. IMPRESSION: [...] be communicated with the ordering provider via [employer] staff message by Imaging Support Services within 2 business days of report finalization. Architectural Administrative Assistant: DEBBIE Transcribe Date/Time: Oct 28 2023 9:25A Dictated by : SCOTT AVILES MD This examination was interpreted and the report reviewed and electronically signed by: BLANCA ALBERTS MD on Oct 28 2023 4:08PM EST [id number] ACTIONABLE Invalid Interpretation Code [facility] RAD - MISCon 10-22-2023 RAD - MISC [id number] #1.00TIFF Normal [facility] Consenton 10-21-2023 Consent [id number] #1.00TIFF Normal [facility] ECG 12-Leadon 10-21-2023 ECG 12-Lead [id number] #1.00TIFF Normal [facility] ED Note-Physicianon 10-21-19 ED Note-Physician [id number] #1.00TIFF Normal [facility] Family Medicine Office/Clini c Noteon 10-21-2023 [...] at night. has appointments with pulm and timber poisoner in October. no wheezing noted on exam [...] virus vaccine, inactivated (more content not included)... [facility] Comment on above: Result Comment: Elec tronically Signed By: Berry Canales\.br\Date and Time Signed: 10/21/23 12:49 EDT Lab Reportson 10-21-2023 Lab Reports [id number] #1.00TIFF [facility] Physician Orderon 10-21-2023 Physician Order [id number] #1.00TIFF [facility] RAD - CT Reporton 10-21-2023 RAD - [address] Report [id number] #1.00TIFF [facility] Ambulatory Visit Summaryon 0 10-18-2023 Ambulatory Visit [...] times a day Refills: 1 Pickup at [facility]/pharmacy #6409 Unchanged albuterol (ProAir RespiClick 90 mcg/ inh [...] mg oral tablet, extended release) Pharmacy Information [facility]/pharmacy #[id number]: [address], [place] [phone] Medications and Immunizations Administered Given Kenalog-40, 60 [...] of pulmonar (more content not included)... Normal [facility] C-REACTIVE PROTEINon 024 CRP [Mass/Vol] 3.4 mg/dL High <0.9 mg/dL [facility] D-DIMERon 10-14-2023 Fibrin D-dimer FEU (PPP) [Mass/Vol] 4180 ng/mL FEU High <500 ng/mL FEU [facility] ESR Westergren method (Bld) [Velocity]on 10-14-2023 ESR (Bld) [Velocity] 45 mm/h High 0 - 20 mm/hr Cl [facility] Fibrin D-dimer FEU (PPP) [Ma ss/Vol]on 10-14-2023 D Dimer Age-related Cutoff 630 ng/mL FEU [facility] SYNOVIAL FLUID MANUAL DIFFon 10-14-2023 Diff Total Synovial Fluid 100 cells counted [facility] Lymph%, SF 18 [facility] [place]%, SF 4 [facility] Neut%, SF 77 High 0 - <25 [facility] Synovial Cell% 1 [facility] SYNOVIAL FLUID, CRYSTAL ID/P ATHOLOGIST INTERPRETATIONon 10-14-2023 Crystal Prelim, SF PRELIMINARY REPORT No diagnostic crystals seen. SEE FINAL SF PATH REVIEW [facility] Crystal Review Reviewed by Josefa Yadav MD, PhD [facility] Crystals LM Nom (Syn fld) None seen None seen [facility] Specimen source Nom (Unsp spec) Shoulder, Left [facility] SYNOVIAL FLUID, ROUTINEon Clarity (Unsp spec) Cloudy Abnormal Clear [facility]note 3] Clinic Clarity (Unsp spec) Clear Clear [facility] Clinic Color (Syn fld) Bloody Abnormal Yellow [facility] Color (Syn fld) Consuelo Abnormal Yellow [facility] RBC Manual cnt (Syn fld) [#/Vol] [id number] /uL High <2,000 /uL [facility] Specimen source Nom (Unsp spec) Shoulder, Left [facility] WBC Manual cnt (Syn fld) [#/Vol] 1177 /uL High 0 - 200 /uL [facility] XR Shoulder - left 3 Viewson 10-14-2023 [facility] Medicine Office/Clini c Noteon 10-05-2023 Family Medicine [...] go directly to the emergency department in [place] for further evaluation as more extensive diagnostic [...] methylPREDNISolone 4 (more content not included)... Normal [facility] Comment on above: Result Comment: Elec tronically Signed By: Mariel SAMANO, Rainer Phillips\.br\Date and Time Signed: 10/05/23 14:36 EDT Physician Referralon 024 Physician Referral [id number]#1.00TIFF [facility] Consultation Noteon 09-19-19 Consultation Note [id number] #1.00TIFF [facility] Family Medicine Office/Clini c Noteon 09-19-2023 Family [...] day. Is using nebulizer. 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 Has productive cough History of Present Illness pt presents today for continue cough, congestion, ear pain. requesting to see timber poisoner Review of Systems PHQ Score Initial Depression [...] day(s), # 21 cap(s), Refills(s) 0, Pharmacy: [facility]/pharmacy #6177, 143.2, cm, 09/18/23 17:04:00 EDT, Height/Length Dosing, 88.2, kg, 09/18/23 17:04:00 EDT, Weight Dosing doxycycline, 100 mg = 1 cap(s), Oral, BID, # 30 cap(s), Refills(s) 1, Pharmacy: [facility]/pharmacy #[id number], 143.2, cm, 09/18/23 17:04:00 EDT, Height/Length Dosing, 88.2, kg, 09/18/23 17:04:00 EDT, Weight Dosing [facility] [place] Ambulatory Referral 2. Shortness of breath [...] # 21 cap(s), Refills(s) 0, [facility], 143.2, cm, 09/18/23 17:04:00 EDT, Height/Length Dosing, 88.2, kg, 09/18/23 17:04:00 EDT, Weight Dosing doxycycline, 100 mg = 1 cap(s), Oral, BID, # 30 cap(s), Refills(s) 1, [facility], 143.2, cm, 09/18/23 17:04:00 EDT, Height/Length Dosing, 88.2, kg, 09/18/23 17:04:00 EDT, Weight Dosing [facility] [place] 3. Chronic allergic rhinitis (J30.9: Allergic rhinitis, unspecified) pt is requesting to be referred to timber poisoner. will send to [facility] timber poisoner Ordered: [facility] [place] 4. BMI 40.0-44.9, adult (Z68.41: Body mass index [BMI] 40.0-44.9, adult) BMi education compelte Ordered: benzonatate, 200 mg = 1 cap(s), Oral, TID, X 7 day(s), # 21 cap(s), Refills(s) 0, Pharmacy: [facility]/pharmacy #[id number], 143.2, cm, 09/18/23 17:04:00 EDT, Height/Length Dosing, 88.2, kg, 09/18/23 17:04:00 EDT, Weight Dosing doxycycline, 100 mg = 1 cap(s), Oral, BID, # 30 cap(s), Refills(s) 1, Pharmacy: [facility]/pharmacy #6177, 143.2, cm, 09/18/23 17:04:00 EDT, Height/Length Dosing, 88.2, kg, 09/18/23 17:04:00 EDT, Weight Dosing [facility] [place] 5. Non-smoker (Z78.9: Other specified health status) continue not smoking Ordered: benzonatate, 200 mg = 1 cap(s), Oral, TID, X 7 day(s), # 21 cap(s), Refills(s) 0, Pharmacy: [facility]/pharmacy #6177, 143.2, cm, 09/18/23 17:04:00 EDT, Height/Length Dosing, 88.2, kg, 09/18/23 17:04:00 EDT, Weight Dosing doxycycline, 100 mg = 1 cap(s), Oral, BID, # 30 cap(s), Refills(s) 1, Pharmacy: [facility]/pharmacy #6177, 143.2, cm, 09/18/23 17:04:00 EDT, Height/Length Dosing, 88.2, kg, 09/18/23 17:04:00 EDT, Weight Dosing [facility] [place] Follow-up No qualifying data [...] Rheumatoid arthriti (more content not included)... Normal [facility] Comment on above: Result Comment: Elec [...] 40.0-44.9, adult Non-smoker Refills: 1 Pickup at [facility]/pharmacy #7752 Unchanged albuterol (ProAir RespiClick 90 mcg/ inh [...] mg oral tablet, extended release) Pharmacy Information [facility]/pharmacy #6177: [address], [place] [id number] [phone] Allergies Cefzil (Unknown) Eliquis (Unknown) Keflex (Hives) [...] for. Art (more content not included)... [facility] Ambulatory Visit Summaryon 0 09-14-2023 Ambulatory [...] for choosing us for your care. [facility] Family Medicine Office/Clini c Noteon 09-14-2023 [...] day(s), # 6 tab(s), Refills(s) 0, Pharmacy: [facility]/pharmacy #6177, 143.2, cm, 09/14/23 9:51:00 EDT, Height/Length [...] days, # 16 tab(s), Refills(s) 0, Pharmacy: [facility]/pharmacy #6177, 143.2, cm, 09/14/23 9:... Portions of this record may have been created with voice recognition artificial intelligence software, specifically Soukboard, mohchi and or Trenergi. Substitutions may have occurred due to the [...] Viral gastrit (more content not included)... Normal [facility] Comment on above: Result Comment: Elec tronically Signed By: LUTHER ASHFORD, Serge Olivas\.dusty\Date and Time Signed: 09/14/23 12:14 EDT RAD - MISCon 08-21-2023 RAD - MISC [id number] #1.00TIFF [facility] Physician Orderon 08-20-2023 Physician Order [id number] #1.00TIFF [facility] Family Medicine Office/Clini c Noteon 08-02-2023 Family [...] day(s), # 6 tab(s), Refills(s) 0, Pharmacy: [facility]/pharmacy #6177, 143.2, cm, 08/02/23 14:19:00 EST, Height/Length Dosing, 88.3, kg, 08/02/23 14:19:00 EST, Weight Dosing methylPREDNISolone, = 1 packet(s), Oral, Once, as directed on package labeling, # 21 tab(s), Refills(s) 0, [facility] 143.2, cm, 06/28/23 10:53:00 EST, Height/Length Dosing, 98, kg, 06/28/23 10:53:00 EST, Weight Dosing methylPREDNISolone, = 1 packet(s), Oral, Once, as directed on package labeling, # 21 tab(s), Refills(s) 0, [facility], 143.2, cm, 08/02/23 14:19:00 EST, [...] 15 m (more content not included)... Normal [facility] Comment on above: Result Comment: Elec tronically Signed By: Berry Canales\.br\Date and Time Signed: 08/02/23 14:33 EST Consultation Noteon 07-24-19 Consultation Note [id number] #1.00TIFF Normal [facility] Auto Diffon 07-15-2023 Basophils/100 WBC (Bld) 0.3 % Normal 0.0-2.0 [facility] Comment on above: Order Comment: Order Added by Discern Expert. Performed By: #### 1 [id number], 8286848, 957369749, 9484858, 9488366, 74568758, 9822977 ####[facility] [address] [place] [address] Basophils/Leukocytes Auto (Bld) [Pure # fraction] 0.0 E9/L Normal 0.0-0.2 [facility] Comment on above: Order Comment: Order Added by Discern Expert. Performed By: #### 1 3893093, 7714570, 051392740, 1838191, 8136310, 87581596, 8255535 ####[address] [address] Eosinophils/100 WBC (Bld) 0.8 % Normal 0.0-8.0 [facility] Comment on above: Order Comment: Order Added by Discern Expert. Performed By: #### 1 2760847, 3281194, 747455215, 7261046, 1845744, 00669958, 2824236 ####[address] [address] Eosinophils/Leukocyt es Auto (Bld) [Pure # fraction] 0.1 E9/L Normal 0.0-0.5 [facility] Comment on above: Order Comment: Order Added by Discern Expert. Performed By: #### 1 9732069, 8751347, 848415801, 0071038, 1443484, 34327342, 0838634 ####[address] [address] Lymphocytes/100 WBC (Bld) 14.5 % Normal 14.0-50.0 [facility] Comment on above: Order Comment: Order Added by Discern Expert. Performed By: #### 1 2821657, 2371289, 055793915, 2018297, 7920209, 68337858, 3154217 ####[address] [address] Lymphocytes/Leukocyt es Auto (Bld) [Pure # fraction] 1.4 E9/L Normal 1.0-4.0 [facility] Comment on above: Order Comment: Order Added by Discern Expert. Performed By: #### 1 7404814, 0152796, 854402697, 2470079, 2255056, 66754873, 0644065 ####[address] [address] Monocytes/100 WBC (Bld) 7.1 % Normal 4.0-14.0 [facility] Comment on above: Order Comment: Order Added by Discern Expert. Performed By: #### 1 0577283, 7808829, 580601544, 6145742, 1234554, 20365336, 5082915 ####[address] [place] [address] Monocytes/Leukocytes Auto (Bld) [Pure # fraction] 0.7 E9/L Normal 0.2-1.0 [facility] Comment on above: Order Comment: Order Added by Discern Expert. Performed By: #### 1 6947936, 9619253, 042449304, 0218649, 4292462, 38907656, 1896253 ####[address] [place] [address] Neutrophils/100 WBC (Bld) 77.3 % High 36.0-75.0 [facility] Comment on above: Order Comment: Order Added by Discern Expert. Performed By: #### 1 6983204, 2782432, 571782139, 4664243, 1688999, 83274840, 6623743 ####[address] [address] Neutrophils/Leukocyt es Auto (Bld) [Pure # fraction] 7.5 E9/L Normal 2.0-7.5 [facility] Comment on above: Order Comment: Order Added by Discern Expert. Performed By: #### 1 6735600, 8313675, 753720889, 7532333, 1259690, 35613185, 5312082 ####[address] [address] CBC w/ Auto Diffon Erythrocyte distribution width (RBC) [Ratio] 15.3 % High 10.9-14.2 [facility] Comment on above: Performed By: #### 1 8783521, 7997648, 978973092, 6425691, 4097147, 37622345, 6760319 ####[address] [place] [address] Hematocrit (Bld) [Volume fraction] 38.5 % Normal 34.0-46.0 [facility] Comment on above: Performed By: #### 1 9681530, 6570967, 767556500, 4188242, 9929165, 97762336, 8584871 ####[facility] [address] [place] [address] Hemoglobin (Bld) [Mass/Vol] 12.6 g/dL Normal 12.0-16.0 [facility] Comment on above: Performed By: #### 1 0992171, 2783651, 232515151, 3039421, 7355159, 64555010, 8607068 ####[facility] [address] [place] [address] MCH (RBC) [Entitic mass] 29.7 pg Normal 27.0-34.0 [facility] Comment on above: Performed By: #### 1 8252997, 4805524, 709252681, 4948243, 9393507, 20028409, 2454409 ####[address] [place] [address] MCHC (RBC) [Mass/Vol] 32.7 g/dL Normal 31.4-36.0 [facility] Comment on above: Performed By: #### 1 8902656, 6920183, 438367721, 7910480, 8220805, 95967136, 4770815 ####[address] [place] [address] MCV (RBC) [Entitic vol] 91.0 fL Normal 80.0-100.0 [facility] Comment on above: Performed By: #### 1 9022667, 6228877, 239029822, 7227397, 6273410, 73681064, 9090799 ####[address] [place] [address] Platelet mean volume (Bld) [Entitic vol] 8.0 fL Normal 6.4-10.8 [facility] Comment on above: Performed By: #### 1 4677740, 6214218, 625651379, 2933227, 2607006, 60148713, 9143124 ####[facility] [place] [address] Platelets (Bld) [#/Vol] 278.0 E9/L Normal 150.0-500.0 [facility] Comment on above: Performed By: #### 1 2153188, 9882822, 168194498, 4878217, 5907161, 41009779, 1659310 ####[facility] [address] [place] [address] RBC (Bld) [#/Vol] 4.2 E12/L Low 4.3-5.9 [facility] Comment on above: Performed By: #### 1 6029950, 2302930, 841556604, 1261544, 7454424, 90300454, 7724289 ####[facility] [address] [place] [address] WBC corrected for nucl RBC Auto (Bld) [#/Vol] 9.7 E9/L Normal 4.0-11.0 [facility] Comment on above: Performed By: #### 1 1198816, 3381521, 299560411, 8916641, 7019033, 67439326, 0586477 ####[facility] [address] [place] [address] CHEMISTRYOrdered By: SYSTEM SYSTEM on 07-15-2023 Albumin [...] 07-15-2023 Albumin [Mass/Vol] 3.8 g/dL Normal 3.3-5.0 [facility] Comment on above: Performed By: #### 1 7936316, 2607484, 138846972, 1011433, 7213564, 55961017, 5584948 ####[facility] [address] [place] [address] Albumin/Globulin [Mass ratio] 1.5 {ratio} Normal 1.1-2.2 [facility] Comment on above: Performed By: #### 1 6771597, 6523392, 918735337, 5592464, 0694040, 79665558, 4915230 ####[facility] [address] [place] [address] Alk Phos 55 Int._Unit/L Normal 21-98 [facility] Comment on above: Performed By: #### 1 5264516, 8869934, 826552405, 0264373, 2077178, 48997464, 1678114 ####[facility] [address] [place] [address] ALT 15 Int._Unit/L Normal 6-46 [facility] Comment on above: Performed By: #### 1 7268247, 5054589, 050579596, 5725386, 0471696, 66855704, 6683507 ####[facility] [address] [place] [address] Anion gap [Moles/Vol] 11 mmol/L Normal 6-16 [facility] Comment on above: Performed By: #### 1 9348077, 6937471, 386038109, 9794474, 3528770, 51139777, 8081743 ####[facility] [address] [place] [address] AST 17 Int._Unit/L Normal 5-43 [facility] Comment on above: Performed By: #### 1 7478683, 1073086, 186586396, 6654946, 9089051, 09369777, 0629889 ####[facility] [address] [place] [address] Bili Total 0.6 mg/dL Normal 0.0-1.1 [facility] Comment on above: Performed By: #### 1 9958411, 0624685, 384512352, 3761714, 0982078, 85356775, 0007056 ####[facility] [address] [place] [address] BUN/Creat Ratio 34 No Units High 10-20 [facility] Comment on above: Performed By: #### 1 4733483, 6220890, 877218184, 4133841, 3818929, 16319622, 1747092 ####[facility] [address] [place] [address] Calcium [Mass/Vol] 9.0 mg/dL Normal 8.9-11.1 [facility] Comment on above: Performed By: #### 1 3822931, 9238395, 502747101, 3240970, 6373155, 79679658, 4771864 ####[facility] [address] [place] [address] Chloride [Moles/Vol] 104 mmol/L Normal 101-111 [facility] Comment on above: Performed By: #### 1 3739116, 2893903, 579565839, 7976594, 0048464, 90900679, 5440281 ####[facility] [address] [place] [address] CO2 [Moles/Vol] 30 mmol/L Normal 21-31 [facility] Comment on above: Performed By: #### 1 5935072, 8772796, 313350989, 1461487, 8767022, 26165156, 8351842 ####[facility] [address] [place] [address] Creatinine [Mass/Vol] 0.5 mg/dL Normal 0.5-1.3 [facility] Comment on above: Performed By: #### 1 0623767, 6509201, 717083759, 6398510, 0915056, 79059932, 0231452 ####[facility] [address] [place] [address] Globulin (S) [Mass/Vol] 2.6 g/dL Normal 1.4-4.0 [facility] Comment on above: Performed By: #### 1 7462420, 5869567, 727715796, 2819498, 7143146, 99881962, 2737455 ####[facility] [address] [place] [address] Glucose [Mass/Vol] 100 mg/dL Normal 55-199 [facility] Comment on above: Performed By: #### 1 8197442, 8940840, 123408530, 7441056, 8364510, 38011942, 5194212 ####[facility] [address] [place] [address] Potassium [Moles/Vol] 3.4 mmol/L Low 3.5-5.3 [facility] Comment on above: Performed By: #### 1 5296382, 9969476, 777729079, 1385988, 0800620, 48562917, 8594548 ####[facility] [address] [place] [address] Protein [Mass/Vol] 6.4 g/dL Normal 6.0-7.8 [facility] Comment on above: Performed By: #### 1 3100622, 7407509, 023823605, 9867735, 4679464, 16930816, 3013974 ####[facility] [address] [place] [address] Sodium [Moles/Vol] 142 mmol/L Normal 135-145 [facility] Comment on above: Performed By: #### 1 9501273, 5582776, 620465415, 6663158, 5258499, 69171810, 7137316 ####[facility] [address] [place] [address] Urea nitrogen [Mass/Vol] 17 mg/dL Normal 5-21 [facility] Comment on above: Performed By: #### 1 0503098, 2062527, 619592244, 6337063, 9537629, 81912084, 6235448 ####[facility] [address] [place] [address] CRPon 07-15-2023 CRP [Mass/Vol] mg/L Normal <=1.9 [facility] Comment on above: Performed By: #### 1 3611435, 8670439, 723695738, 9120378, 6837873, 01854494, 2655745 ####[facility] [address] [place] [address] Consent for Treatmenton 07-01 Consent for Treatment [id number] #1.00TIFF Normal [facility] HEMATOLOGYOrdered By: SYSTEM SYSTEM on 07-15-2023 [...] 278.0 E9/L Normal 150.0 - 500.0 E9/L [facility] HemeAutoSS RBC (Bld) [#/Vol] 4.2 E12/L Low 4.3 - 5.9 E12/L [facility] HemeAutoSS WBC corrected for nucl RBC Auto (Bld) [#/Vol] 9.7 E9/L Normal 4.0 - 11.0 E9/L [facility] HemeAutoSS Physician Orderon 07-15-2023 Physician Order [id number]#1.00TIFF Normal [facility] Sed Rate Automatedon 024 ESR (Bld) [Velocity] 19 mm/h Normal 0-34 [facility] Comment on above: Performed By: #### 1 0477222, 3502720, 311883990, 2384513, 4677509, 52866483, 9702566 ####[facility] [address] [place] [address] Vitamin D 25 Hydroxyon 07-15 Vitamin D 25 Hydroxy 31.6 ng/mL Normal 30.0-100.0 [facility] Comment on above: Performed By: #### 1 2766829, 4602825, 006199307, 0532967, 4155828, 44494187, 9367871 ####[facility] [address] [place] [address] eGFRon 07-15-2023 GFR/1.73 sq M.predicted among non-blacks MDRD (S/P/Bld) [Vol rate/Area] mL/min/{1.73_m2} Normal >=59 [facility] Comment on above: Order Comment: Order added by Discern Expert. Performed By: #### 1 4841800, 5676521, 408537479, 5408234, 6721356, 65289041, 4679984 ####[facility] [address] [address] Consultation Noteon 07-08-19 Consultation Note [id number] #1.00TIFF Normal [facility] Outside Diabetes Eye Examon 07-08-2023 Outside Diabetes Eye Exam [id number] #1.00TIFF Normal [facility] Consultation Noteon 07-03-19 Consultation Note [id number] #1.00TIFF Normal [facility] Ambulatory Visit Summaryon 1 Ambulatory Visit [...] as directed on package labeling Pickup at [facility]/pharmacy #6143 Unchanged celecoxib (celecoxib 200 mg Cap) 1 [...] as directed on package labeling Pickup at [facility]/pharmacy #6178 Unchanged montelukast (montelukast 10 mg Tab) See [...] mg oral tablet, extended release) Pharmacy Information [facility]/pharmacy #6177: [address], [place] [id number] [phone] Allergies Cefzil (Unknown) Eliquis (Unknown) Keflex (Hives) [...] for choosing us for your care. Normal [facility] Family Medicine Office/Clini c Noteon 06-28-2023 [...] day(s), # 6 tab(s), Refills(s) 0, Pharmacy: [facility]/pharmacy #6177, 143.2, cm, 06/28/23 10:53:00 EST, Height/Length Dosing, 98, kg, 06/28/23 10:53:00 EST, Weight Dosing methylPREDNISolone, = 1 packet(s), Oral, Once, as directed on package labeling, # 21 tab(s), Refills(s) 0, Pharmacy: [facility]/pharmacy #6177, 143.2, cm, 06/28/23 10:53:00 EST, Height/Length [...] G benzathine (Hives) (more content not included)... [facility] Comment on above: Result Comment: Elec tronically Signed By: Kirit MAGANA, Berry Olivas\.br\Date and Time Signed: 06/28/23 12:45 EST Consultation Noteon 06-19-20 Consultation Note [id number] #1.00TIFF [facility] RAD - CT Reporton 06-19-[address] RAD - CT Report [id number] #1.00TIFF [facility] Consultation Noteon 05-29-20 Consultation Note [id number] #1.00TIFF [facility] Consultation/Specialist Note on 05-24-2023 Consultation/Special ist Note [id number]#1. 00[facility] Provider Orderson 05-24-2023 Provider Orders [id number] #1.00[facility] Provider Orders [id number]#1. 00[facility] Coding Summaryon 05-22-2023 Coding Summary HTMLBase 64 LqmuwbbhEQq5rFj+PGhl YWQ+HN3FCXUdE49feAWx gO6hX5GIRGmWZxjlONYN MHgRFmNrstLvMW2weMNh ZXJu IC8+PH1zNVPqTlkboTBe j5P2eUP0R86vju4bWHlw bCG6AYDeWwYwzgllk5zu zAy8HSleAmpxWnYp UKBweL40UAR2gM29Oz49 dXDwnWDha7lfwBw3FgRu WYDrLUG2mBmhKRztn6Xk GECxM03nmMOuz5U1 IGNvbGxhcHNlOyBlbXB0 tX3aBSaeobqak7ivpzsa Lml4sv23pIHuf1E9wPH1 G8YarcZ0ZAEavADx HszodLQCeZ8jlhusb7so tljhAkWkQSYtKMa0GVy9 KLNiaItdOkKkTZ90BCY7 GSRlgiFnS8EkZKTe hNteZkP1d9B8Gp1LE0MX YcurJ3VEEBUYSDonzDT+ CV06vn25X9SsTzaqWob6 MSFdPYR8rWJ8rT0d OCRsITesr5E4gOC6Z4Iv syZfnn1pw6xjAELoDKuc P65ldVSux6P2FWUqiRC9 HBLfpAcwNjMewB75 Oyc+RIGptYokv5PtQbhb n4rsd4ydoSp2KwdwTMOp cqOtmCgwGUS5f6HoOu9k KDJkyIA4lDU8mJ9f JeHjKvW6RIijM643KmUi iCMnQiayY78dZ3RwuPN+ UUTrPdc2MPYgaTurAQ1a K2NvOYZpplomgHZe pRocKM2xFZLcfeakWPWq lL7iUXXkU7j4FcDrToK3 QQmcK6CeTACnfzicTi03 kR7gYvVwQmW9VPdo W0MhcnZ9KZFgcHSgCSzr ZJM1W26os0O7REVoVYDq TUI7uSR6wW7hbEfigjko bGVmdDsgdmVydGlj KEzrEBarD400VPSzlCki PkNvZGluZyBEYXRlOiAg MTEvMjIvMjAyMzwvdGQ+ YKYhTFC0lQamELAp aEFfCEbdPc6wlSxunNcj ZP6eNMHcqrbkTUTwkG5s EUEvqDQsyTnlUU4qEGPd dlxmy930XhBbGRY4 ZMCfvHPnZ6DfiN9xIhEo GNUnYNDyB7FnrCYpSMwm P767PZnbJkQ2EWJtfxGm F5VhIBQwoYuyLzM4 p6R7Iz2Wo3PqrgrpG5Mi eNTqEkTcDpohYNi6N9Xo PjwvdHI+SY25NYLuJT17 HOj5TNN4jAqxZLdq RMGjL8HynD9dEpNvVKGn ZGRkOyc+PHRhYmxlIHdp ZHRoPScxMDAlJyBzdHls MV5oAf3cVQYqGRGc pOdfpPXfAyCrs8jvLZBx KAiiUP1yxNwlW8OyrTQ7 FBXyk3b3Ej07N16xS0Jy dXA+XIBfxOD9jLK7 uK1lUfRwWyT8HJmnH879 VwUuwTPyIpezc8xtb9uw pMp6NuA9BUTyocRrsBef ISQ1u9CwIt93G39v IHdpZHRoPSIxNSUiIHZh hUpxez8hnI8oIe5+PGNv mGC5uCO5yK7wJrRrKfD2 BArcW140HaUdaDGd Dxlpq9com8femTr7IlPw MRXozqBitZmhEZP4n3Wh Cc90C6WplYiqy8IoMxs6 rf45xULtg1Z0yST8 F6UaTHIgessxqGFgzVzm JJ2rBYKtqhjvPRFuoN2g XBUwA1l1AhAdEpY6UJus A5GxtnD2EYIwfDRi BGOnuETCpB7cpovsv7cy lkjpZnFdGEGnRIi1LNd5 IDIirLupYkBtPLA7YfA5 APY1gPRbrG0nwTao axczdF3oGoz+YMM9bNIg yWHKRP7nMnwygDN+PHRk CCZ8eHvwPUzzBIIiyV3n RBUzV1x4RkJzWjF4 EBdqF1NaknK4HXIcwMCs ZMVhcUYFrK1zoeotr8ur ochdEwKqZPIrAJv0JLw0 LWFsaWduOiBsZWZ0 SkP0JYF4oRLuhS7djHmh jmwpmT3sInt+QmlydGgg DQU0RQd8I2XvIyi5ZZJq qBdvWC8kfKCoMIpv Ud4eaLarmCbdBZ3fHAVv almxx694OvNiy2unAIAi gLLmDBrrMGP3U21fo9I5 QGLgZXBiIHJ7cNE3 kS5gkUobssbomIFfnZsd qzUghOmcUEuzZYmhR455 SRXraLwyEkDfSXm1X1Hw Bzb3VFYqlXftSM7p oXFnTStfAc2roJecdEce TW1oRJKoqmqfi986CpKs u2mfBAKvyYWlRSvlPDD8 T56xd4W0CPTfXFRr EAX5tDB6eQ0fxGrlzxnc bGVmdDsgdmVydGljYWwt SRrvW128JGNjiUakRtLr hGw3T2LeZnz7GPOx hWsoSX7ahZVzZOveQc3o nXojlDvvAQ5pLLTrckwm c111EnXkz4yzEOMjeAWw EWqpYOE2C25mn4V8 WGJaJUOyUOH1nPX2gF2z bGlnbjogbGVmdDsgdmVy zYbgSFlaHHpeA262IDPk cDsnPlBhdGllbnQg DInqNUh4Y5TzXukrlID+ XU19EWUfUF72tOFspQUu h6darPz4IiPuOPRxAKD2 cLkpHJsbo8FgOIFl M52ysTXsv0I6PVHuaLpl aJBaBhWxpTY6pW5tSIaz mfhya7imbzmnIjiql4qu pd70fC84R88iWNpp ZHRoPSIzMCUiIHZhbGln un5fcW3mLe6+PGNvbCB3 kJM7xQ3aYZBnVhU0SQdg U312ZnMbiXHyPvfv z9zka1jgcEa7LzH7ATZx vvCauRcbNRC0z7BmXl70 X50hFYdaGICbYFZhZUPd OXDwiFdsuu7inO2g Ii8+QYZvgNT1wIU5zM9k EjNeGfI4NVpcL391IzNs hLMkDxwwS42cO5GnxNT+ XTCsWqi0FGYirGfg ZA6nuSCzBTnfDx6uLTD5 JqJgDlVvIYluV3JdYZBc rhtuhmkucDP6QKKiUHGk oK02Qq2gzDdkHVAe xYAYyI0apfeih1jnhgzy UqEtZMKaMUo0PYq4QIVz bHoxJjSuRZC4FzA8PVO0 cYVjkH0xwLovzkvt aX5rO4WrHQGokldlWx35 yS0fOhFaDgJ7DNugPfs+ LVzPKXJPIZVJCOydYY6R PT65GA38wLTmm5V0 pKC0X0GaHCDdrtxixhzm uHG7APEiSVWjwX57pGMq XDmnBb0kk5O3t798VDVa GZXczC45Gs0paWmk BKMjuKAKyW0hrlclk2ck bmskTuDxWJRiAPz5DZf3 XQUvcCakAmYgWKA0TdS8 CEQ7sKBkgW4luFbx dxycqJ4uCoy+MDUvMDcv EFm7GBbodGS+PHRkIHN0 bYgdOHwaDETcsH6bNHZr V0n3ThZtRsO6TBcg N2FyXWRygnpdSg94pL3s PfCmDkR8MEjiO2FgtbY0 YSEevBFgYCskNIU6P36s d4N6RZQxCCMvHQN6 yIZ3nX1kdYpcpxjbzFLb dDsgdmVydGljYWwtYWxp C294FVCziAobPiByXHxu NWGuMK95RC71oHPh i0S7wTF9J9JzGGTjmdsx mvmcnFJ6DEGaRYVpoU80 mRJfQJxnOu7ko5U7y512 YEQeKSUrxT50Zb7r nHzvUJIxpJPOmK8iyyll q7xbjzzgLqXgAMXwNUf5 KIp3VXQioKdfPpDuOWN1 AyW9XOV0eQAskV0n fVefqwsygS5wLql+RkVN CXsXLW61MJ09wSHwv5X9 yRC3R4RkNHDbadowvqvp vLZ5RNDlPTRbeK00 gNSwNUyePd1cm9F7r600 GXKtQQFzkX85Ir0bkUrv JGBjqVYXmW2wtbjnq6hr cjogIzAwMDAwMDt0 XRt3CHTxdJqiIdPzEZC3 VnR8IKU2aDHwvI4jbSmh covliA1dIpf+A6WqYLZ2 LMIip212R5QwDidg dHI+GR97QBPtFR69jKUn gMEml4bjtJy2YsHqWOOq XST3iQckKMjii1EdSEXk P62slKGmp0Y9LWUr sAtfzGIkVzEzrHJ0mU9w JMvhtxyya6yeuylaMepy l8odly22jR80O46hPXyl ZHRoPSIzMCUiIHZh kBzbqj8dxV4uSk5+PGNv cRX8xTA8aO4jSmEgPhN5 OPxmX557AkCjxKEhOaxs r2wgy5ldjGf0XvLk BOKxvaDprVspWDC0s6Do Km36W79uOFyaXYGjUREk PPEnGOGlwFulib0rdU8n Ii8+FW6mx6trcg63 qN31zOR+TNDqEKK5aZoq IVydEZZgiG3nPNlxMlE0 XJTqGuMyoO81xPHbVHim Sa0tcFygyGsaEY1q MPCizitfw848UqYii4qf SGAysRUyATgwJGT2W07o g6P1QZIlRBDeYQY4uHX1 xV9rxVshhhizzHPj dDsgdmVydGljYWwtYWxp Z804JTCitGbjEoAgyXRf L3cfjpFEEK5nNviozEL+ OCFhHWA8dPkjMJbb SQTjqB8nWGDxZ5s2DcJo OmP9RZjvL1ZqjnJ7WRSx gGTtWXMqsDLAzE1rikvg n3iyspzhMiVlTYOt BOy4XSd5MTUisHqaLaQf LCE9EuM9KPR8uCDwwO4t zRdvckwwsX6sJvr+RklO OjwvdGQ+PHRkIHN0 rIaaNPjyHXUizY4jVNNq H3r8KiVkDaJ5YVruI0Um rpP3KTTxmHLkZRXfmDJZ tT8huvesl1edfvlm HqWfODGsXMk8MDx5JDIb gSbbJtPjCUW5RaL2EDG7 gGCfuW8zbLztmzrjhT8f Oyc+TVJOOjwvdGQ+ DBGzKIU5lChqSHbyWERp rU3lTBHpD7t4MlLoJqA0 XZtcR3KseoZ6MPLpaDMe JQAwvHSSgS6ftgfd k1tszbgbUfYyDOLlCUt7 SZt0XOKesXzxOxAyYUS3 NzB4WAQ8qLXufP1xhNiv mnxgqF9zPbm+UGF5 QYL9AD82NU58X5ZxIlwt dGFibGU+PHRhYmxlIHdp ZHRoPScxMDAlJyBzdHls TJ6eUb9pMXSfKQCo bGx (more content not included)... [facility] Consent Formson 05-22-2023 Consent Forms [id number]#1. [facility] 05-22-2023 Outside Records [id number]#1. [facility] Telemetry Stripson 3 Telemetry Strips [id number] .[facility] 05-21-2023 [place] [address] Patient Discharge Instructions Name: CAROLINA GUTIERREZ : 1960 Patient Address: [address] [place] [address] Primary Care Provider: Name: Silvestre Benavides MD After you are discharged if you find you have any questions, please, call [phone] ext [phone] to speak to a nurse. The Pharmacy at [facility] is open Saturday through Saturday from 9A [...] problems; contact the [facility] 21/01 Crisis Hotline -Text 4HOPE fw [phone]. If you received any narcotics, sedation, or [...] decisions or sign any legal documents [facility] would like to thank you for allowing us to assist you with your healthcare needs. The following includes patient education materials and information regarding your injury/illness. CAROLINA GUTIERREZ has been given the following list of follow-up instructions, prescriptions, and patient education materials: Follow-up Instructions With: Address: When: Rosa Dunbar [address] [place] [address], [address] [place] [address] [facility] (1) 05/28/2023 10:30 AM Medications During [...] Moderate f (more content not included)... [facility]23 MAGR Intraoperative Record MAGR Intra-Op Record Summary Primary Physician: Rosa Dunbar DO Finalized Date/Time: 05/21/23 10:19:12 Pt. Name: CAROLINA GUTIERREZ KENDY Dimas/Sex: 1960 FEMALE Med Rec #: [id number] Physician: Rosa Dunbar DO Financial #: [id number] Pt. Type: O Room/Bed: On license of [facility]/ Admit/Disch: 05/20/23 06:11:47 - Institution: Case Times [...] Role Performed Surgeon - Primary Anesthesiologist of Redrying Machine Operator Record Time In 05/20/23 07:28:00 05/20/23 07:28:00 [...] Radloff, Leigh-Ann CSFA CST CST Role Performed Redrying Machine Operator Scrub Personnel Production Control Analyst Time In 05/20/23 07:28:00 05/20/23 07:28:00 05/20/23 07:28:00 Time Out 05/20/23 09:33:00 05/20/23 09:33:00 05/20/23 09:33:00 Procedure Arthroplasty Shoulder Arthroplasty Shoulder Arthroplasty Shoulder Total Reverse(Left) Total Reverse(Left) Total Reverse(Left) Last Modified By: Siomara Espinoza RN, Lauren L RN Wheeler, Lauren L RN 05/20/23 09:33:30 05/20/23 09:33:30 05/20/23 09:33:30 Entry 7 Case Attendee Keisha Sanderson CST, CST CSFA Role Performed Production Control Analyst Time In 05/20/23 07:28:00 Time Out 05/20/23 [...] Participants Sheri Vásquez DO, John M MD, [facility] (more content not included)... [facility] MAGR Postoperative Recordon 05-21-2023 MAGR Postoperative Record MAGR Phase II Record Summary Primary Physician: Rosa Dunbar DO Finalized Date/Time: 05/21/23 10:28:27 Pt. Name: CAROLINA GUTIERREZO.B./Sex: 1960 FEMALE Med Rec #: [id number] Physician: Rosa Dunbar DO Financial #: [id number] Pt. Type: O Room/Bed: [facility] Admit/Disch: 05/20/23 06:11:47 - Institution: Phase II [...] Signed By: Ligia Claudio RN 05/21/23 10:28 [facility] POCT Glucose Levelon 023 Glucose [Mass/Vol] 171 mg/dL High 74-118 [facility] Comment on above: Performed By: #### 4 [id number] ####[facility] (DEFAULT)[address] [place] [address] Pharmacy Noteon 05-21-2023 Pharmacy Note I have [...] list against external fill history and available DENTAL HYGIENE INSTRUCTOR medication history to ensure accuracy. Reviewed regimen upon discharge which is appropriate and correct. [Electronically Signed on: 05/21/2023 13:13 EST] Andrew Martino [Verified on: 05/21/2023 13:13 EST] Andrew Martino [facility] Pharmacy Note I have personally reviewed [...] [Verified on: 05/21/2023 07:59 EST] Andrew Martino [facility] Anesthesia Noteon 05-20-2023 Anesthesia Note Patient: [...] equinus deformity of foot / SNOMED CT 53505487 / Confirmed Allergic rhinitis / SNOMED CT 966514429 / Confirmed Anemia / SNOMED CT 416127692 / Confirmed Anti-cyclic citrullinated peptide antibody detected / SNOMED CT 9569568447 / Confirmed Anti-nuclear factor detected / SNOMED CT 5154279973 / Confirmed Arthritis / SNOMED CT 1419412 / Confirmed Asthma / SNOMED CT 835893394 / Confirmed Chronic peripheral venous hypertension with lower extremity complication. 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 / SNOMED CT 551079231 / Confirmed Diabetes / SNOMED CT 989594917 / Confirmed Diverticular disease / SNOMED CT 3555327934 / Confirmed Esophageal web / SNOMED CT 97072372 / Confirmed GERD (gastroesophageal reflux disease) / SNOMED CT 481490384 / Confirmed Hyperlipidemia / SNOMED CT 27081291 / Confirmed Hypothyroidism / SNOMED CT 46885147 / Confirmed 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 / SNOMED CT 8098941179 / Confirmed Obesity / SNOMED CT 3598650808 / Confirmed Physical Examination Vital Signs (last [...] on: 05/20/2023 12:32 EST] Naveen Wade MD [facility] Anesthesia Note Patient: CAROLINA GUTIERREZ Age: [...] equinus deformity of foot / SNOMED CT 67858053 / Confirmed Allergic rhinitis / SNOMED CT 756778262 / Confirmed Anemia / SNOMED CT 969058730 / Confirmed Anti-cyclic citrullinated peptide antibody detected / SNOMED CT 4336297902 / Confirmed Anti-nuclear factor detected / SNOMED CT 3491925533 / Confirmed Arthritis / SNOMED CT 5798323 / Confirmed Asthma / SNOMED CT 483900561 / Confirmed Chronic peripheral venous hypertension with lower extremity complication. / SNOMED CT 7209852524 / Confirmed Chronic sinusitis / SNOMED CT 00030873 / Confirmed Colitis / SNOMED CT 141500821 / Confirmed COVID-19 / SNOMED CT 2498961091 / Confirmed Decreased diffusion capacity of lung / SNOMED CT 77376946 / Confirmed Deformity of calcaneum / SNOMED CT 889007718 / Confirmed Degenerative joint disease of ankle AND/OR foot / SNOMED CT 843667600 / Confirmed Diabetes / SNOMED CT 162484894 / Confirmed Diverticular disease / SNOMED CT 5234806532 / Confirmed Esophageal web / SNOMED CT 52948188 / Confirmed GERD (gastroesophageal reflux disease) / SNOMED CT 066844024 / Confirmed Hyperlipidemia / SNOMED CT 56801209 / Confirmed Hypothyroidism / SNOMED CT 56969211 / Confirmed Immunoglobulin subclass deficiency / SNOMED CT 708233461 / Confirmed Multiple nodules of lung / SNOMED CT 1656224211 / Confirmed Obesity / SNOMED CT 3537927791 / Confirmed Resolved: Bilateral pulmonary embolism / SNOMED CT 43365034 Canceled: Degenerative joint disease involving multiple joints / SNOMED CT 648224149 Canceled: Hypothyroid / SNOMED CT 54464583 Histories Family History: Diabetes mellitus Mother Asthma Father Heart failure Father Aneurysm Father Lymphoma Mother Pulmonary embolism Father Procedure history: Meniscus of knee joint (87143006). Comments: 05/03/2023 14:50 LAVONNE Storm RN, Noemi Olivas left knee repair Colonoscopy (423008494). Total knee arthroplasty (4064834735). Comments: 05/03/2023 14:49 Noemi Arshad RN right Cholecystectomy (14284876). Bilateral cataracts (670414475). Tonsils and adenoids (647180111). Foot (00989647). Comments: 05/03/2023 14:51 Noemi Arshad RN reconstruction bilateral feet Vaginal hysterectomy with partial colpectomy (000455352). Hematoma (5361468641). Comments: 05/03/2023 14:53 Noemi Arshad RN left [...] Substance (more content not included)... [facility] MAGR Intraoperative Recordon 05-20-2023 MAGR Intraoperative Record MAGR Intra-Op Record Summary Primary Physician: Finalized Date/Time: 05/20/23 07:32:42 Pt. Name: CAROLINA GUTIERREZ/Sex: 1960 FEMALE Med Rec #: [id number] Physician: Rosa Dunbar DO Financial #: [id number] Pt. Type: D Room/Bed: / Admit/Disch: 05/20/23 [...] Draper, Lora RN Role Performed Anesthesiologist of Redrying Machine Operator Redrying Machine Operator Record Time In 05/20/23 07:15:00 05/20/23 07:15:00 [...] Area (Im (more content not included)... [facility] MAGR PACU Record MAGR PACU Record Summary Primary Physician: Rosa Dunbar DO Finalized Date/Time: 05/20/23 10:38:00 Pt. Name: CAROLINA GUTIERREZ/Sex: 1960 FEMALE Med Rec #: [id number] Physician: Rosa Dunbar DO Financial #: [id number] Pt. Type: D Room/Bed: 224/1 Admit/Disch: 05/20/23 06:11:47 - Institution: PACU Case Times MAGR Entry 1 In PACU I 05/20/23 09:34:00 Discharge from PACU 05/20/23 10:27:00 I Last Modified By: Jessenia Ayon RN 05/20/23 10:37:58 Finalized By: Jessenia Ayon RN Document Signatures Signed By: Jessenia Ayon RN 05/20/23 10:38 [facility] MAGR Preoperative Recordon 1 07-20-2022 MAGR Preoperative Record MAGR Pre-Op Record Summary Primary Physician: Rosa Dunbar DO Finalized Date/Time: 05/20/23 08:05:44 Pt. Name: CAROLINA GUTIERREZ/Sex: 1960 FEMALE Med Rec #: [id number] Physician: Rosa Dunbar DO Financial #: [id number] Pt. Type: D Room/Bed: / Admit/Disch: 05/20/23 [...] Signed By: Nata Sánchez RN 05/20/23 08:05 [facility] Nutrition Noteon 05-20-2023 Nutrition Note Chart reviewed; 62 yo female diagnosed with s/p shoulder repair; diet order cardiac; no recent weight changes; no difficulties with chew/swallow identified on admit; patient currently appears at low nutrition risk; encourage increase po as maria g post-op; monitor po for adequacy, wt/labs for changes; follow, assist prn. ts [facility] Operative Report - Surgeon/P john paul [...] infraspinatus. Also fatty infiltration into the deltoid. [id number] Procedure summary: The patient was brought to [...] on: 05/20/2023 09:17 EST] Rosa Dunbar DO [facility] POCT Glucose Levelon 023 Glucose [Mass/Vol] 127 mg/dL High [address] [place] [address] Comment on above: Performed By: #### 4 [id number] ####[facility] (DEFAULT)[address] [place] [address] Glucose [Mass/Vol] 94 mg/dL Normal [address] [place] [address] Comment on above: Performed By: #### 4 [id number] #### [facility] (DEFAULT) [address] [place] [address] Progress Note - Nurseon 05-02 Progress Note [...] on: 05/20/2023 11:23 EST] Pop Rodriguez RN [facility] XR Shoulder 1 View Lefton XR Shoulder 1 View Left History: Shoulder replacement Technique: Left shoulder, 2 views COMPARISON: [none] FINDINGS: Status post left shoulder arthroplasty. The prostheses are in anatomic alignment. There is air in the subcutaneous soft tissues. IMPRESSION: Status post left shoulder arthroplasty. Final Signed (Electronic Signature): Delmar Miller MD 05/20/23 11:33 a Technologist: SLIM [facility] Comment on above: Order Comment: janeth lt status post shoulder replacement Progress Note - Nurseon - Progress Note - Nurse Pre-op call done, instructed to arrive @ 0600 on 05-20-23, NPO after midnight-verbalized understanding. [Electronically Signed on: 05/17/2023 10:00 EST] Jessenia Ayon RN [Verified on: 05/17/2023 10:00 EST] Jessenia Ayon RN [facility] ECG 12-Leadon 05-16-2023 ECG 12-Lead [id number]#1.00TIFF [facility] Lab Reportson 05-16-2023 Lab Reports [id number] #1.00TIFF [facility] Patient Correspondenceon Patient Correspondence [id number]# 1.00TIFF [facility] Provider Letteron 05-15-2023 Provider Letter [address] [place], [place] [address] May 15, [address] [address] : [address] Dunbar, The above patient has been evaluated at your request for preoperative clearance. After assessment of available pertinent labs and diagnostic tests, I feel this patient is medically optimized for surgery. Final discretion of whether the patient is cleared for surgery remains up to the surgeon/anesthesiolo gist. Thank you, MORENA Castillo [facility] Auth for Release of Medical Recordson 05-13-2023 Auth for Release of Medical Records [id number]# 1.00TIFF [facility] Coding Summaryon 05-13-2023 Coding Summary HTMLBase 64 OpqcexrkQVi1gOo+PGhl YWQ+JK8YNHRqO93xwLJe xM6yT0WCUZwGYpakIRSO CDePHjJpvyJlMG3klVTb ZXJu IC8+RA2aSTQcUdxewRMn h8M9tNH5T90woe7bRQci cMT8TERvPtRiuslhs9dn bBu5PYgfKwdeNkPx ZKZwpN75HON8pO62On26 lDJynONcb2duxGd1PzLd PECeJSA4dEjnYRray1Qs WJQqO49fcJYix0M7 IGNvbGxhcHNlOyBlbXB0 qV4xFSfbgzcdj3jjeyth Uob1ni11oQVfv0S8xWV7 R3AiqpR3GLTecSEw FtqpfCKBkM0fzvldw1yv tlhjCdDeQTEaMSv4QKf8 EDJmaLbuXtPaDY07EJC9 KCYjmeYuE3UqREHq zDgyNsE8n1M6Ns3LO4MZ NcgjE8GZUMSNNHojgFP+ FL81pk44H5ZvWxazEzn9 MDYbFYC3jIU7dF0v DFYnSMklk5B7qVU0J7Lt liWkdh2kt1peUAVlQMxu O16slAJge8M1EFMbpDN7 XTNbtNliReZjmA04 Oyc+HRLrsDclx2CcYipt w7jbj1znzWc7JfzwXBBh azQquGumIIJ8o7JvRh3s SXDpdNA7mVZ8fH4c GnLoMeL0ADsoG785IfYi nJTiEtswL75bR5OfoLR+ OCJvGfx9XDGpnYfeIE8a U2RxXWYsyqlvpJJz vKdsGF6iMCPgjqyzUXUz tD3xUVKsQ0p0MbJfZwS9 LAscF2DoEYMhmrwzQo14 sP5lVrJtKzM8HBya X9YhwnN3VXYfjMUpBUtc DWZ5S53ne2R0MSYoYIVt HBE8yYA3tV3paKomyiip bGVmdDsgdmVydGlj JYpfBEvoW830HNQxaRhq PkNvZGluZyBEYXRlOiAg MTEvMTMvMjAyMzwvdGQ+ HGMwVXH7cIqkAHOt dKAyUCvbJb8hqGdthOcv LD1fYSXkepqpZRGijA3y JTDlsXKpxHycSY4nXTZo qzcuo567PxHtKCF5 DLEbnYHkK3YrsH7uEoMq YNZhVWYxH6GxvRVrOXvd N886SJhgTzI3LUGxsfOj X6BvKTFgeIrxIlB7 a5V4Sp0Tx0IhgpulQ8Kd uEWwBuPpRnalBDv9X5Id PjwvdHI+YR84WQKmYG27 OUj5SHO8uGmwCZbr PISqK8EbvV2sKmEsGYNu ZGRkOyc+PHRhYmxlIHdp ZHRoPScxMDAlJyBzdHls AC3jSq9cYQRwUUTv qLcaiKXsFnXdx9bzITPd SLwhBV4zoPwfF7NcpAV2 ACZth4t4Iv00S78uH5Ff dXA+TCFpoOT5jYU1 kM4jClDfWnS9GZblX983 KeAluXFbZdvpg6yax3dw fHu5FvD3IDCridEfqYrc WNA5b8KrVf27K69q IHdpZHRoPSIxNSUiIHZh fYvify3snM5xYk3+PGNv rTS8eNU4nH2qQbTcHlQ0 EEofM516YjMxvCCl Dmfkt1ocg3itvBo7MtEp MYUcbdExaXzeVVD8q7Gp So00X1ZdkPqgi2EfBmb9 hz10zIAyd8W6kLW1 C1OoHQDjlnhjeUWgmXyl II8qZJZztcoxMPIbxN7z PJDeM7e2UyAqVcS2RZfb J6WvovM6YKGqwEOp RUKjeJWYhT4cajwme6el lzwaTkQyMMImPRk3RDl5 RSKjnOkqMlGoIKC3BqM0 RMK8sABhqK3eoVnm oxmcwO8cMrn+NVZ1gNXd gIUPSY3fAmbhqTJ+PHRk SZI5gDslXFxxIGGgjU0o AXPvI0j8HcJdRnD9 HIsgK4XtqpV5TLGxpTTu BLZfhODIrG7xnnltm9bc ohngViYfDRMyTBu0ZVl7 LWFsaWduOiBsZWZ0 BzM7HKI4eSYuhT6nqRci ybwimX5uMmn+QmlydGgg XHR4KRd1M1VdQzl0BFGl aXvvGI7snFYyUOag Vx1cdNjfbKatCD9aFFBf irqni038JlQuc4vwEHLu lJGrUVzeKIB0O75lh9H1 QLAsTQQvXBU1xKF7 tR0eaFncgeyevOIekVff xeMaqOdhYQlhZEitM178 MBHytLtaImYaLPx6U5Tb Kbf6KLGxkLhvSH4x uAYfUQtsMr6zvJjdbUav AC5tXBRrbxuom059GtWc n2yfJLNalABwGTlmZWE4 S02gq8L0XGQwAWRy NMF2mMU1yJ5jnXgyqeny bGVmdDsgdmVydGljYWwt MSreM273GIJmbIifBqRh jXd9U5WnCsv9MXCg oLkrUN2hfGRaUHfsWm1s jYqbjDzyQA7hDXFlxohd h323DqEbs6ziLNCxsNMd GTomCOX7U99jo9Q8 EJKiNUBlMRR3qET0qN4t bGlnbjogbGVmdDsgdmVy lOffZUlqXEbxS853RXYu cDsnPlBhdGllbnQg WPkkDFs4I1QzBuvsrNN+ UO07FHKdUT82nDIcyAFv o9bqqHo1MbEuPOBzTYL4 zJokKXxob3FjHRKh J57isNHok2K2YYPrxTuy oMZpObEpzEK1pK5jAZth vlnfy3tnmcrzVkngb4ai rp92gE76W54yIHxc ZHRoPSIzMCUiIHZhbGln oa3rkP2qIt3+PGNvbCB3 lSP9lD9wQUOwClU7XAul H656PcKtbPVwEvaj l8zqk4jhkBu4DiS6AWUd vaScyMzaUMW1e1GnZk71 W77xQFajGPAvLOGeDEGa MNQpeFvmif6oiX7f Ii8+MBMuvGV8uQC2vB6z QbVyCqW8AXbeE823WeSr pSZvNewvM13kU6GajCT+ FICoRbv1FHYlyTlp AE9orOKnSZzbNb1mWKV9 GpTbHxGvJMltR3WeDKBu tmmtmlbzcSF7NYUnFTVj wF66So9lfZnhCORc fLAUcA1odpylp8ubkfwg KfDlRVCeVIl3VVp5ZMDg yXibPaMjJWF7WuY4WUB0 kLRcgU7amOajszkp bK7fC1ExIWSquuhyAb94 gQ6sDhYiOxL3DNqsUvy+ UVxMONLQUUHBGUtrXE9A OX20WY51fEBhl3P3 jDK5F5EfMFOdooscpvit sIA1ODWfHISdwE87qRDl YTcsIv3xd7R8x762ZHOa QAVfxE28Nu0ixOhe QDNclTXJsE7yzjbrw2kw pxcuHfRdBBIeQMu2ARw7 AQUmmKncQpRsFLS7AkX6 STP7lRWkyB7oiTmk joftpA9hFic+MDUvMDcv CJi3MRzjqDL+PHRkIHN0 mRsdZZfcZVHgtY4jPKGs A5d6SrQsPvF9QTne C7WyPWFcumbsDj68bK3i PmNvKwN9KWrrB4OyfqN2 DDZleZVaJWztTZK5G42c n9F1VIEwWXDcQBJ8 hEG9qT6hjRbmhedhaLTw dDsgdmVydGljYWwtYWxp K951PNDoePjwDjOmTJie QOMvME10YS08tKEp x9F4cOW0O1WySQAjqegm mzhkkEN0TVMiPYLqpT12 tNHhBHnkQn5ve8M0f456 HQAbOEQrqL11Fm5n zDogXAHopKEMjT3tdoje d4bojcziMdLyQHUzADo2 CRs9BVFcmCmzJfYtCUP0 XcD6RFE1qCOjcI7p vWcispxuuF8sFys+RkVN LLoCXY07WI95uACno5W8 yEV5J1ZeRNWwhpjxxuqp mTN6DWKvPFVcpF39 xJOiTPqvWy2ku5E3t044 ZWPkTQRqdX86Ch5ujOnw JLDgnXNVtV1exrpah7jf cjogIzAwMDAwMDt0 HJc1IONpyNdtMgOtKLA2 AkA2CMK3eJCdpY3ntWcn eorbsC2yMfl+E0A3R2Ag PjwvdHI+WV21EKKs LS72bWZfzERyt6vkpAb3 KuDcSAZiDGC8xRppKJrw v0XrEJFgG74lhIPxy7H0 IGNvbGxhcHNlOyBl yHV8uD5hGIgnxqsgf7mu mmywGxdou1qwcy87mN40 Y96oARncOGTjGRMtTVCd GRLxwNwqjr6wjF2o Ii8+VXVvpSC7tDY4cL4w LaMsNbU1UYtzK456AaRq qBCyOhghx4xlz5nkcYn6 IjIwJSIgdmFsaWdu PQN2i4QmUe97W71oFVgn ZHRoPSIyMCUiIHZhbGln nx2cfM0aOc5+FU0oz7ma kt14fQ27hZU+PHRk VIK8qOioOXmwBLJpyX1f IRnrWcZ1TMYeWlOnyF17 tCMsKLikOx0tzWfgrJqo TC2kHIGjadsls509 GoAsp2ayJYMmfYGuRZox HGJ7V97dg6D8OGRmPPIg RDF7cZP2pL1rnVznkcti bGVmdDsgdmVydGlj RWirRPsaZ521QTCygYuv DhHgtNRbP0dozxJCKB8c OjwvdGQ+FKRvACM1wVxy WIrcUAXcoZ4gFUXa D0n4EwKkQzI0QOsjB8Pz ktF8QFEnhLLhHPZzqISR lP4nqnaak5geihbnTvSc LVSrPKc1TGd3DOVo rVyfGeTyLAI2KeF3GJA4 zNWovG2ndNxqvjxnmQ4q Oyc+RklOOjwvdGQ+PHRk CRM7iJnpCVqgMEXr pQ1cNRFcS0w7GdJyAuQ3 MUrwW3ZjheK2XVQwlFAe IBNekDJGuF3qeylqw1rv cjogIzAwMDAwMDt0 VIf9YZOttJpkZrLyFUE3 LiJ3YGI5nLVcwN9shDps ofswnI6tVip+TVJOOjwv dGQ+EBOmVAV9aBnr KHvaFGDiiL5iZWOwK9l7 NqCuHoF6AXiaV9FzniU5 IVFiuNZmAMVtdGWBdI3p capxu2ojfsqsVnMo RDBeKEs6ZIj6GHEmcQfe YuQcHBR7CwQ3OLM0cWRm zH2lbCsxnowysX0lNgc+ YTV5NHR7DN58AN78 T4XmUoxfzEPkeTF+PHRh YmxlIHdpZHRoPScxMDAl GrUtcSipPF6oBr5oPSXn LWNvbGxhcHNlOiBj b2x (more content not included)... [facility] 05-13-2023 Consent [id number] #1.00TIFF [facility] Ambulatory Visit Summaryon 1 07-10-2022 Ambulatory [...] future visit, Lab Collect, Pre-op exam [facility] Family Medicine Office/Clini c Noteon 05-10-2023 [...] pt had ekg and labs done at [facility] on Saturday. will request those [...] day(s), # 6 tab(s), Refills(s) 0, Pharmacy: [facility]/pharmacy #[id number], 143.2, cm, 05/10/23 13:59:00 EST, Height/Length Dosing, [...] 0.05 m (more content not included)... [facility] Comment on above: Result Comment: Elec tronically Signed By: Berry Canales\.br\Date and Time Signed: 05/10/23 14:55 EST Progress Note - Nurseon 05-01 Progress Note - Nurse PAT review reviewed again by Dr. Curran after talking with Dr. Dunbar, no orders received. [Electronically Signed on: 05/10/2023 13:37 EST] Jessenia Ayon RN [Verified on: 05/10/2023 13:37 EST] Jessenia Ayon RN [facility] Progress Note - Nurseon - Progress [...] on: 05/08/2023 09:15 EST] Noemi Storm RN [facility] Consultation Noteon 05-07-20 Consultation Note [id number] #1.00TIFF [facility] Progress Note - Nurseon Progress Note - [...] 13:01 EST] Jessenia Ayon RN [facility] C MRSA Screenon 05-04-2023 C MRSA Screen Negative [facility] Comment on above: Performed By: #### 1 [id number] ####[facility] (DEFAULT)[address] [place] [address] .Auto Diff 1on 05-03-2023 Auto [place] % 6 % Normal 1-12 [facility] Comment on above: Performed By: #### 7 [id number], [id number], [id number] ####[facility] (DEFAULT)[address] [place] [address] Baso Abs# 0.0 x10 Normal 0.0-0.2 [facility] Comment on above: Performed By: #### 7 [id number], [id number], [id number] ####[facility] (DEFAULT)[address] [place] [address] Basophils/100 WBC (Bld) 0.3 % Normal 0.2-2.0 [facility] Comment on above: Performed By: #### 7 [id number], [id number], [id number] ####[facility] (DEFAULT)[address] [place] [address] Eos Abs# 0.1 x10 Normal 0.0-0.4 [facility] Comment on above: Performed By: #### 7 [id number], [id number], [id number] ####[facility] (DEFAULT)[address] [place] [address] Eosinophils/100 WBC (Bld) 1.2 % Normal 0.9-4.0 [facility] Comment on above: Performed By: #### 7 [id number], [id number], [id number] ####[facility] (DEFAULT)[address] [place] [address] Lymph Abs# 2.3 x10 Normal 1.3-2.9 [facility] Comment on above: Performed By: #### 7 [id number], [id number], [id number] ####[facility] (DEFAULT)[address] [place] [address] Lymphocytes/100 WBC (Bld) 25 % Normal 14-48 [facility] Comment on above: Performed By: #### 7 [id number], [id number], [id number] ####[facility] (DEFAULT)[address] [place] [address] [place] Abs# 0.5 x10 Normal 0.0-0.8 [facility] Comment on above: Performed By: #### 7 [id number], [id number], [id number] ####[facility] (DEFAULT)[address] [place] [address] Neut Abs# 6.2 x10 Normal 1.5-9.2 [facility] Comment on above: Performed By: #### 7 [id number], [id number], [id number] ####[facility] (DEFAULT)[address] [place] [address] Neutrophils/100 WBC (Bld) 68 % Normal 44-88 [facility] Comment on above: Performed By: #### 7 [id number], [id number], [id number] ####[facility] (DEFAULT)[address] [place] [address] Standardon 05-03-2023 eGFR Non AA >60 Invalid Interpretation Code [facility] Comment on above: Performed By: #### 7 [id number], [id number], [id number] ####[facility] (DEFAULT)[address] [place] [address] eGFR AA >60 Invalid Interpretation Code [facility] Comment on above: Performed By: #### 7 [id number], [id number], [id number] ####[facility] (DEFAULT)[address] [place] [address] 66015 Anion gap [Moles/Vol] 8.5 mmol/L Normal 5.0-19.0 [facility] Comment on above: Performed By: #### 7 [id number], [id number], [id number] ####[facility] (DEFAULT)[address] [place] [address] Calcium [Mass/Vol] 8.5 mg/dL Low 8.9-10.3 [facility] Comment on above: Performed By: #### 7 [id number], [id number], [id number] ####[facility] (DEFAULT)[address] [place] [address] 10349 Chloride [Moles/Vol] 104 mmol/L Normal 101-111 [facility] Comment on above: Performed By: #### 7 [id number], [id number], [id number] ####[facility] (DEFAULT)[address] [place] [address] 26374 CO2 [Moles/Vol] 27 mmol/L Normal 21-32 [facility] Comment on above: Performed By: #### 7 [id number], [id number], [id number] ####[facility] (DEFAULT)[address] [place] [address] 53540 Creatinine [Mass/Vol] 0.57 mg/dL Low 0.60-1.30 [facility] Comment on above: Performed By: #### 7 [id number], [id number], [id number] ####[facility] (DEFAULT)[address] [place] [address] 11515 Glucose [Mass/Vol] 126.0 mg/dL High 74.0-118.0 [facility] Comment on above: Performed By: #### 7 [id number], [id number], [id number] ####[facility] (DEFAULT)[address] [place] [address] 94885 Osmolality 275 mOsm/L Invalid Interpretation Code [facility] Comment on above: Performed By: #### 7 [id number], [id number], [id number] ####[facility] (DEFAULT)[address] [place] [address] 33923 Potassium [Moles/Vol] 3.5 mmol/L Low 3.6-5.1 [facility] Comment on above: Performed By: #### 7 [id number], [id number], [id number] ####[facility] (DEFAULT)[address] [place] [address] Sodium [Moles/Vol] 136.0 mmol/L Normal 136.0-144.0 [facility] Comment on above: Performed By: #### 7 [id number], [id number], [id number] ####[facility] (DEFAULT)[address] [place] [address] Urea nitrogen [Mass/Vol] 18 mg/dL Normal 8-26 [facility] Comment on above: Performed By: #### 7 [id number], [id number], [id number] ####[facility] (DEFAULT)[address] [place] [address] Urea nitrogen/Creatinine [Mass ratio] 31.5 mg/mg High 4.6-16.2 [facility] Comment on above: Performed By: #### 7 [id number], [id number], [id number] ####[facility] (DEFAULT)[address] [place] [address] CBC w/ Auto Diffon 3 Erythrocyte distribution width (RBC) [Ratio] 15.6 % High 11.5-15.0 [facility] Comment on above: Performed By: #### 7 [id number], [id number], [id number] #### [facility] (DEFAULT) [address] [place] [address] Hematocrit (Bld) [Volume fraction] 37.9 % Normal 33.7-40.4 [facility] Comment on above: Performed By: #### 7 [id number], [id number], [id number] #### [facility] (DEFAULT) [address] [place] [address] Hemoglobin (Bld) [Mass/Vol] 12.6 g/dL Normal 11.3-15.9 [facility] Comment on above: Performed By: #### 7 248593, [id number], [id number] #### [facility] (DEFAULT) [address] [place] [address] Man Diff? Auto Invalid Interpretation Code [facility] Comment on above: Performed By: #### 7 [id number], [id number], [id number] #### [facility] (DEFAULT) [address] [place] [address] 33403 MCH (RBC) [Entitic mass] 30 pg Normal 24-34 [facility] Comment on above: Performed By: #### 7 [id number], [id number], [id number] #### [facility] (DEFAULT) [address] [place] [address] 21757 MCHC (RBC) [Mass/Vol] 33 g/dL Normal 26-37 [facility] Comment on above: Performed By: #### 7 [id number], [id number], [id number] #### [facility] (DEFAULT) [address] [place] [address] 60233 MCV (RBC) [Entitic vol] 89 fL Normal 81-100 [facility] Comment on above: Performed By: #### 7 [id number], [id number], [id number] #### [facility] (DEFAULT) [address] [place] [address] 04693 Platelet 288 x10 Normal 138-427 [facility] Comment on above: Performed By: #### 7 [id number], [id number], [id number] #### [facility] (DEFAULT) [address] [place] [address] Platelet mean volume (Bld) [Entitic vol] 7.2 fL Normal 6.3-10.2 [facility] Comment on above: Performed By: #### 7 [id number], [id number], [id number] #### [facility] (DEFAULT) [address] [place] [address] 02477 RBC 4.26 x10 Normal 3.70-5.30 [facility] Comment on above: Performed By: #### 7 [id number], [id number], [id number] #### [facility] (DEFAULT) [address] [place] [address] 27082 WBC 9.1 x10 Normal 3.5-10.5 [facility] Comment on above: Result Comment: Slid e Reviewed Performed By: #### 7 [id number], [id number], [id number] #### [facility] (DEFAULT) [address] [place] [address] UA Uxhci8vl 11-03-2023 UA Bacteria Trace [facility] Comment on above: Order Comment: Urina lysis Microscopic order added on by [employer] Expert Rules system. Performed By: #### 5 [id number], [id number] #### [facility] (DEFAULT) [address] [place] [address] 32265 UA RBC 0-2 [facility] Comment on above: Order Comment: Urina lysis Microscopic order added on by [employer] Rules system. Performed By: #### 5 [id number], [id number] #### [facility] (DEFAULT) [address] [place] [address] 08842 UA Squam Epi Few [facility] Comment on above: Order Comment: Urina lysis Microscopic order added on by [email or web address] Expert Rules system. Performed By: #### 5 [id number], [id number] #### [facility] (DEFAULT) [address] [place] [address] UA WBC 0-2 [facility] Comment on above: Order Comment: Urina lysis Microscopic order added on by [email or web address] Expert Rules system. Performed By: #### 5 [id number], [id number] #### [facility] (DEFAULT) [address] [place] [address] UA w Culture if Ind Standard on 05-03-2023 Breakpoint UA [facility] Comment on above: Performed By: #### 5 [id number], [id number] #### [facility] (DEFAULT) [address] [place] [address] Color (U) Yellow [facility] Comment on above: Performed By: #### 5 [id number], [id number] #### [facility] (DEFAULT) [address] [place] [address] Culture? Not Indicated Invalid Interpretation Code [facility] Comment on above: Result Comment: Resu lt created by rule GL_MAGR_ADD_UA_CULT Result created by rule GL_MAGR_ADD_UA_CULT Result created by rule GL_MAGR_ADD_UA_CULT1 Performed By: #### 5 [id number], [id number] #### [facility] (DEFAULT) [address] [place] [address] 17590 Glucose (U) [Mass/Vol] Negative Normal [facility] Comment on above: Performed By: #### 5 [id number], [id number] #### [facility] (DEFAULT) [address] [place] [address] 68558 Ketones Ql (U) Negative Normal [facility] Comment on above: Performed By: #### 5 [id number], [id number] #### [facility] (DEFAULT) [address] [place] [address] 36922 Micro? Indicated Invalid Interpretation Code [facility] Comment on above: Result Comment: Resu lt created by rule GL_MAGR_ADD_UA_MICRO Performed By: #### 5 [id number], [id number] #### [facility] (DEFAULT) [address] [place] [address] UA Bilirubin Negative Normal [facility] Comment on above: Performed By: #### 5 [id number], [id number] #### [facility] (DEFAULT) [address] [place] [address] 07708 UA Blood Negative Normal NEGATIVE [facility] Comment on above: Performed By: #### 5 [id number], [id number] #### [facility] (DEFAULT) [address] [place] [address] 48750 UA Clarity CLEAR Normal CLEAR [facility] Comment on above: Performed By: #### 5 [id number], [id number] #### [facility] (DEFAULT) [address] [place] [address] 39350 UA Leuk Est TRACE Abnormal NEGATIVE [facility] Comment on above: Performed By: #### 5 [id number], [id number] #### [facility] (DEFAULT) [address] [place] [address] 72956 UA Nitrite Negative Normal NEGATIVE [facility] Comment on above: Performed By: #### 5 [id number], [id number] #### [facility] (DEFAULT) [address] [place] [address] 35065 UA pH 6.0 Normal 5-8 [facility] Comment on above: Performed By: #### 5 [id number], [id number] #### [facility] (DEFAULT) [address] [place] [address] UA Protein Negative Normal NEGATIVE [facility] Comment on above: Performed By: #### 5 [id number], [id number] #### [facility] (DEFAULT) [address] [place] [address] 52281 UA Spec Grav 1.010 Normal 1.001-1.035 [facility] Comment on above: Performed By: #### 5 [id number], [id number] #### [facility] (DEFAULT) [address] [place] [address] 65304 UA Urobilinogen 0.2 mg/dL Normal 0.2-1.0 [facility] Comment on above: Performed By: #### 5 [id number], [id number] #### [facility] (DEFAULT) [address] [place] [address] 36298 Urine Source Clean Catch Normal [facility] Comment on above: Performed By: #### 5 [id number], [id number] #### [facility] (DEFAULT) [address] [place] [address] 34704 Ambulatory Visit Summaryon Ambulatory Visit Summary CAROLINA [...] 2:00 PM EDT With: Berry Canales Where: [facility] Normal [address] [place], [place] [address]- \.br\ Medications\.br\ What How Much When Instructions\.br\ [...] 24 hours Duration: 7 Days Pickup at [facility]/pharmacy #[id number]\.br\ Unchanged levothyroxine (levothyroxine 137 mcg (0.137 mg) [...] mg oral tablet, extended release)\.br\ Pharmacy Information\.br\ [facility]/pharmacy #[id number]: [address], [place] [id number] [phone]\.br\ Allergies\.br\ Cefzil (Unknown)\.br\ Eliquis (Unknown)\.br\ Keflex (Hives)\.br\ [...] choosing us for your care.\.br\ \.br\ [facility] Family Medicine Office/Clini c Noteon 04-23-2023 Family [...] day(s), # 7 tab(s), Refills(s) 0, Pharmacy: [facility]/pharmacy #[id number], 143.2, cm, 04/23/23 14:53:00 EDT, Height/Length Dosing, 86, kg, 04/23/23 14:53:00 EDT, Weight Dosing methylPREDNISolone, = 1 packet(s), Oral, Once, as directed on package labeling, # 21 tab(s), Refills(s) 0, Pharmacy: [facility]/pharmacy #[id number], 143.2, cm, 12/05/22 15:37:00 EDT, Height/Length [...] refills Luis (more content not included)... Normal [facility] Comment on above: Result Comment: Elec tronically Signed By: Berry Canales\.br\Date and Time Signed: 04/23/23 15:15 EDT Consultation Noteon 04-16-20 Consultation Note [id number] #1.00TIFF Normal [facility] RAD - MISCon 03-26-2023 RAD - MISC [id number] #1.00CD:127 Normal [facility] RAD MIS [id number]# 1.00CD:127 [facility] Ambulatory Visit Summaryon 0 03-20-2023 Ambulatory Visit [...] PM EDT With: Teodora Ott CNP Where: [facility] Normal [facility] Consultation Noteon 02-27-20 Consultation Note [id number]# 1.00CD:127 Normal [facility] CHEMISTRYOrdered By: SYSTEM SYSTEM on 12-05-2022 [...] BASO # 0.0 103/ul Normal 0.0-0.1 [facility] Comment on above: Performed By: #### C BC ####[facility] [address] [place] [address]Dr. Jean Crow Basophils/100 WBC (Bld) 0.1 % Critically low 0.2-2.0 [facility] Comment on above: Performed By: #### C BC ####[facility] [address] [place] [address]Dr. Jean Crow EO # 0.0 103/ul Normal 0.0-0.7 [facility] Comment on above: Performed By: #### C BC ####[facility] [address] [place] [address]Dr. Jean Crow Eosinophils/100 WBC (Bld) 0.5 % Critically low 0.9-7.0 [facility] Comment on above: Performed By: #### C BC ####[facility] [address] [place], [place] [address]Dr. Jean Crow Erythrocyte distribution width (RBC) [Ratio] 14.8 % Normal 11.0-15.0 [facility] Comment on above: Performed By: #### C BC ####[facility] [address] [place], [place] [address]Dr. Jean Crow Hematocrit (Bld) [Volume fraction] 32.7 % Critically low 36.0-48.0 [facility] Comment on above: Performed By: #### C BC ####[facility] [address] [place], [place] [address]Dr. Jean Crow Hemoglobin (Bld) [Mass/Vol] 10.1 g/dL Critically low 12.0-16.0 [facility] Comment on above: Performed By: #### C BC ####[facility] Hz[address] [place], [place] [address]Dr. Jean Crow IG # 0.03 10e3/ul Normal 0.00-0.03 [facility] Comment on above: Performed By: #### C BC ####[facility] [address] [place], [place] [address]Dr. Jean Crow IG % 0.4 % Normal 0.0-0.5 [facility] Comment on above: Performed By: #### C BC ####[facility] [address] [place], [place] [address]DrYury Crow LYMPH # 0.8 103/ul Critically low 1.2-3.8 [facility] Comment on above: Performed By: #### C BC ####[facility] [address] [place], [place] [address]Dr. Jean Crow Lymphocytes/100 WBC (Bld) 9.6 % Critically low 20.5-60.0 [facility] Comment on above: Performed By: #### C BC ####[facility] [address] [place] [address]DrYury Crow MANUAL DIFF REQ NO Normal [facility] Comment on above: Performed By: #### C BC ####[facility] [address] [place] [address]DrYury Crow MCH (RBC) [Entitic mass] 27.5 pg Normal 26.7-34.0 [facility] Comment on above: Performed By: #### C BC ####[facility] [address] [place], [place] [address]DrYury Crow MCHC (RBC) [Mass/Vol] 30.9 g/dL Normal 29.9-35.2 [facility] Comment on above: Performed By: #### C BC ####[facility] [address] [place], [place] [address]DrYury Crow MCV (RBC) [Entitic vol] 89.1 fL Normal 81.0-99.0 [facility] Comment on above: Performed By: #### C BC ####[facility] [address] [place], [place] [address]DrYury Crow MONO # 0.5 103/ul Normal 0.3-0.8 [facility] Comment on above: Performed By: #### C BC ####[facility] [address] [place], [place] [address]DrYury Crow Monocytes/100 WBC (Bld) 6.2 % Normal 1.7-12.0 [facility] Comment on above: Performed By: #### C BC ####[facility] [address] [place], [place] [address]DrYury Crow NEUT # 6.7 103/ul Critically high 1.4-6.5 [facility] Comment on above: Performed By: #### C BC ####[facility] [address] [place], [place] [address]Dr. Jean Crow Neutrophils/100 WBC (Bld) 83.2 % Critically high 43.0-75.0 [facility] Comment on above: Performed By: #### C BC ####[facility] [address] [place] [address]Dr. Jean Crow Platelet mean volume (Bld) [Entitic vol] 9.5 fL Normal 9.5-13.5 [facility] Comment on above: Performed By: #### C BC ####[facility] [address] [place] [address]DrYury Crow PLT 222 103/ul Normal 150-450 [facility] Comment on above: Performed By: #### C BC ####[facility] [address] [place], [place] [address]DrYury Crow RBC 3.67 106/ul Critically low 4.20-5.40 [facility] Comment on above: Performed By: #### C BC ####[facility] [address] [place], [place] [address]DrYury Crow WBC 8.0 103/ul Normal 4.0-11.0 [facility] Comment on above: Performed By: #### C BC ####[facility] [address] [place], [place] [address]Dr. Jean Crow PROF 14(COMP METB)on 023 Albumin [Mass/Vol] 2.4 g/dL Critically low 3.4-5.0 [facility] Comment on above: Performed By: #### C MP ####[facility] [address] [place] [address]DrYury Crow Albumin/Globulin [Mass ratio] 0.9 {ratio} Normal [facility] Comment on above: Performed By: #### C MP ####[facility] [address] [place], [place] [address]DrYury Crow ALP [Catalytic activity/Vol] 101 U/L Normal 46-116 [facility] Comment on above: Performed By: #### C MP ####[facility] [address] [place], [place] [address]Dr. Jean Crow ALT [Catalytic activity/Vol] 60 U/L Critically high 14-59 [facility] Comment on above: Performed By: #### C MP ####[facility] [address] [place] [address]Dr. Liliaazael Tristin Anion gap [Moles/Vol] 11.9 mmol/L Normal [facility] Comment on above: Performed By: #### C MP ####[facility] [address] [place], [place] [address]Dr. Jean Tristin AST [Catalytic activity/Vol] 74 U/L Critically high 15-37 [facility] Comment on above: Performed By: #### C MP ####[facility] [address] [place], [place] [address]Dr. Jean Crow Bilirubin [Mass/Vol] 1.3 mg/dL Critically high 0.2-1.0 [facility] Comment on above: Performed By: #### C MP ####[facility] [address] [place], [place] [address]Dr. Jean Crow Calcium [Mass/Vol] 6.9 mg/dL Critically low 8.5-10.1 [facility] Comment on above: Performed By: #### C MP ####[facility] [address] [place], [place] [address]Dr. Jean Crow Chloride [Moles/Vol] 103 mmol/L Normal 98-107 [facility] Comment on above: Performed By: #### C MP ####[facility] [address] [place], [place] [address]Dr. Jean Crow CO2 [Moles/Vol] 24.7 mmol/L Normal 21.0-32.0 [facility] Comment on above: Performed By: #### C MP ####[facility] [address] [place], [place] [address]Dr. Jean Crow Creatinine [Mass/Vol] 0.53 mg/dL Critically low 0.55-1.02 [facility] Comment on above: Performed By: #### C MP ####[facility] [address] [place], [place] [address]Dr. Jean Crow EGFR-AF ARGENTINE >60 Normal >=60 [facility] Comment on above: Performed By: #### C MP ####[facility] [address] [place] [id number]. Jean Crow EGFR-NON AF ARGENTINE >60 Normal >=60 [facility] Comment on above: Performed By: #### C MP ####[facility] [address] [place] [id number]. Jean Crow Globulin (S) [Mass/Vol] 2.6 g/dL Normal [facility] Comment on above: Performed By: #### C MP ####[facility] [address] [place] [id number]. Jean Crow Glucose [Mass/Vol] 88 mg/dL Normal 74-106 [facility] Comment on above: Performed By: #### C MP ####[facility] [address] [place] [id number]. Jean Crow Potassium [Moles/Vol] 3.6 mmol/L Normal 3.5-5.1 [facility] Comment on above: Performed By: #### C MP ####[facility] [address] [place] [id number]. Jean Crow Protein [Mass/Vol] 5.0 g/dL Critically low 6.4-8.2 [facility] Comment on above: Performed By: #### C MP ####[facility] [address] [place] [id number]. Jean Crow Sodium [Moles/Vol] 136 mmol/L Normal 136-145 [facility] Comment on above: Performed By: #### C MP ####[facility] [address] [place] [address]Dr. Jean Crow Urea nitrogen [Mass/Vol] 11.0 mg/dL Normal 7.0-18.0 [facility] Comment on above: Performed By: #### C MP ####[facility] [address] [place] [id number]. Jean Crow Urea nitrogen/Creatinine [Mass ratio] 20.8 mg/mg Normal [facility] Comment on above: Performed By: #### C MP ####[facility] [address] [place] [address]Dr. Jean Crow BNPon 11-19-2022 Natriuretic peptide B (Bld) [Mass/Vol] 316.0 pg/mL Normal <=900.0 [facility] Comment on above: Performed By: #### C VDAGS #### [facility] [address] [place] [address] [address] Jean Crow CBC AUTO DIFFon 11-19-2022 BASO # 0.0 103/ul Normal 0.0-0.1 [facility] Comment on above: Performed By: #### C BC ####[facility] [address] [place], [place] [address]DrYury Crow Basophils/100 WBC (Bld) 0.2 % Normal 0.2-2.0 [facility] Comment on above: Performed By: #### C BC ####[facility] [address] [place], [place] [address]DrYury Crow EO # 0.1 103/ul Normal 0.0-0.7 [facility] Comment on above: Performed By: #### C BC ####[facility] [address] [place], [place] [address]Dr. Jean Crow Eosinophils/100 WBC (Bld) 1.0 % Normal 0.9-7.0 [facility] Comment on above: Performed By: #### C BC ####[facility] [address] [place], [place] [address]DrYury Crow Erythrocyte distribution width (RBC) [Ratio] 14.9 % Normal 11.0-15.0 [facility] Comment on above: Performed By: #### C BC ####[facility] [address] [place], [place] [address]DrYury Crow Hematocrit (Bld) [Volume fraction] 40.7 % Normal 36.0-48.0 [facility] Comment on above: Performed By: #### C BC ####[facility] [address] [place], [place] [address]Dr. Jean Crow Hemoglobin (Bld) [Mass/Vol] 12.7 g/dL Normal 12.0-16.0 [facility] Comment on above: Performed By: #### C BC ####[facility] [address] [place] [address]Dr. Jean Crow IG # 0.03 10e3/ul Normal 0.00-0.03 [facility] Comment on above: Performed By: #### C BC ####[facility] [address] [place] [address]Dr. Jean Tristin IG % 0.3 % Normal 0.0-0.5 [facility] Comment on above: Performed By: #### C BC ####[facility] [address] [place] [address]Dr. Liliaazael Tristin LYMPH # 0.8 103/ul Critically low 1.2-3.8 [facility] Comment on above: Performed By: #### C BC ####[facility] [address] [place] [address]Dr. Liliaazael Crow Lymphocytes/100 WBC (Bld) 6.7 % Critically low 20.5-60.0 [facility] Comment on above: Performed By: #### C BC ####[facility] [address] [place] [address]Dr. Jean Tristin MANUAL DIFF REQ NO Normal [facility] Comment on above: Performed By: #### C BC ####[facility] [address] [place] [address]Dr. Jean Tristin MCH (RBC) [Entitic mass] 28.0 pg Normal 26.7-34.0 [facility] Comment on above: Performed By: #### C BC ####[facility] [address] [place], [place] [address]Dr. Jean Tristin MCHC (RBC) [Mass/Vol] 31.2 g/dL Normal 29.9-35.2 [facility] Comment on above: Performed By: #### C BC ####[facility] [address] [place], [place] [address]Dr. Jean Crow MCV (RBC) [Entitic vol] 89.6 fL Normal 81.0-99.0 [facility] Comment on above: Performed By: #### C BC ####[facility] [address] [place] [id number]. Jean Crow MONO # 0.7 103/ul Normal 0.3-0.8 [facility] Comment on above: Performed By: #### C BC ####[facility] [address] [place] [address]Dr. Jean Tristin Monocytes/100 WBC (Bld) 5.8 % Normal 1.7-12.0 [facility] Comment on above: Performed By: #### C BC ####[facility] [address] [place] [address]Dr. Jean Crow NEUT # 9.8 103/ul Critically high 1.4-6.5 [facility] Comment on above: Performed By: #### C BC ####[facility] [address] [place] [address]Dr. Jean Tristin Neutrophils/100 WBC (Bld) 86.0 % Critically high 43.0-75.0 [facility] Comment on above: Performed By: #### C BC ####[facility] [address] [place] [address]Dr. Jean Tristin Platelet mean volume (Bld) [Entitic vol] 9.3 fL Critically low 9.5-13.5 [facility] Comment on above: Performed By: #### C BC ####[facility] [address] [place] [address]Dr. Jean Tristin PLT 283 103/ul Normal 150-450 [facility] Comment on above: Performed By: #### C BC ####[facility] [address] [place] [phone]. Jean Crow RBC 4.54 106/ul Normal 4.20-5.40 [facility] Comment on above: Performed By: #### C BC ####[facility] [address] [place], [place] [address]DrYury Crow WBC 11.4 103/ul Critically high 4.0-11.0 [facility] Comment on above: Performed By: #### C ####[facility] [address] [place], [place] [address] ABD/PELV W CONon 11-20-19 23 [...] LISA BAÑUELOS Date: 2022-11-19 15:16 Normal [facility] Covid-19 PCR (CVDTB)on 10-30 SARS-CoV-2 (COVID-19) RNA BRIAN+probe Ql (Unsp spec) Not detected Normal NOT DETECTED [facility] Comment on above: Performed By: #### C VDTB ####[facility] [address] [place] [address]Dr. Liliaazael Crow GI PANEL (PCR)on 11-19-2022 Adenovirus F 40/41 Not detected Normal NOT DETECTED [facility] Comment on above: Performed By: #### G IPANEL ####[facility] [address] [place] [address]Dr. Jean Crow Astrovirus Not detected Normal NOT DETECTED [facility] Comment on above: Performed By: #### G IPANEL ####[facility] [address] [place], [place] [address]Dr. Jean Crow C. Diff toxin A/B Not detected Normal NOT DETECTED [facility] Comment on above: Performed By: #### G IPANEL ####[facility] [address] [place], [place] [address]Dr. Jean Crow Campylobacter Not detected Normal NOT DETECTED [facility] Comment on above: Performed By: #### G IPANEL ####[facility] [address] [place], [place] [address]Dr. Jean Crow Cryptosporidium Not detected Normal NOT DETECTED The [facility] Comment on above: Performed By: #### G IPANEL ####[facility] [address] [place], [place] [address]Dr. Jean Crow Cyclos. Cayetanensis Not detected Normal NOT DETECTED [facility] Comment on above: Performed By: #### G IPANEL ####[facility] [address] [place], [place] [address]Dr. Jean Crow E. Coli O157 Not Applicable Normal Not Applicable [facility] Comment on above: Performed By: #### G IPANEL ####[facility] [address]zn[address] [place], [place] [address]Dr. Jean Crow E. histolytica Not detected Normal NOT DETECTED The [facility] Comment on above: Performed By: #### G IPANEL ####[facility] Pygkowanim[address] [place], [place] [address]Dr. Jean Crow EAEC Not detected Normal NOT DETECTED [facility] Comment on above: Performed By: #### G IPANEL ####[facility] [address] [place] [id number]. Jean Crow EIEC Not detected Normal NOT DETECTED [facility] Comment on above: Performed By: #### G IPANEL ####[facility] [address] [place], [place] [address]Dr. Jean Crow EPEC Not detected Normal NOT DETECTED [facility] Comment on above: Performed By: #### G IPANEL ####[facility] Ielfusbj[address] [place], [place] [address]Dr. Jean Crow ETEC Not detected Normal NOT DETECTED [facility] Comment on above: Performed By: #### G IPANEL ####[facility] [address]xq[address] [place], [place] [address]Dr. Jean Crow G. Lamblia Not detected Normal NOT DETECTED [facility] Comment on above: Performed By: #### G IPANEL ####[facility] Head[address]ufx[address] [place], [place] [address]Dr. Jean Crow [facility]ED Normal The [facility] Comment on above: Performed By: #### G IPANEL ####[facility] Q[address]mzqvehj[address] [place], [place] [address]Dr. Jean [facility] JEANNE HEADER GI PANEL BACTERIA Normal [facility] Comment on above: Performed By: #### G IPANEL ####[facility] Zmcevgjb[address] [place], [place] [address]Dr. Jean [facility] ECOLI GI PANEL DIARRHEAGENIC E.COLI / SHIGELLA Normal [facility] Comment on above: Performed By: #### G IPANEL ####[facility] [address] [place], [place] [address]Dr. Jean [facility] GIPNLHD INFO SEE BELOW Normal [facility] Comment on above: Result Comment: EAEC - Enteroaggregative E. Coli EPEC- Enteropathogenic E. Coli ETEC- Enterotoxigenic E. Coli lt/st STEC- Shigella-like toxin-producing E. Coli stx1/stx2 EIEC- Shigella/Enteroinvasive E. Coli Performed By: #### G IPANEL ####[facility] [address] [place], [place] [address]Dr. Jean Crow GIPNLHD PARASITES GI PANEL PARASITES Normal [facility] Comment on above: Performed By: #### G IPANEL ####[facility] Xinvhwnsfc[address] [place], [place] [address]Dr. Jean Crow GIPNLHD VIRUS GI PANEL VIRUSES Normal [facility] Comment on above: Performed By: #### G IPANEL ####[facility] Zxsxikjjhz[address] [place], [place] [address]Dr. Liliaazael Crow Norovirus GI/GII Not detected Normal NOT DETECTED [facility] Comment on above: Performed By: #### G IPANEL ####[facility] [address] [place], [place] [address]Dr. Jean Crow P. Shigelloides Not detected Normal NOT DETECTED [facility] Comment on above: Performed By: #### G IPANEL ####[facility] M[address]vvdqfea[address] [place], [place] [address]Dr. Jean Crow Rotavirus A Not detected Normal NOT DETECTED The [facility] Comment on above: Performed By: #### G IPANEL ####[facility] G[address]fqwyr[address] [place], [place] [address]Dr. Jean Crow Salmonella Not detected Normal NOT DETECTED [facility] Comment on above: Performed By: #### G IPANEL ####[facility] Mvhzasisug[address] [place], [place] [address]Dr. Jean Crow Sapovirus Not detected Normal NOT DETECTED [facility] Comment on above: Performed By: #### G IPANEL ####[facility] N[address]pj[address]so[address] [place], [place] [address]Dr. Jean Crow STEC Not detected Normal NOT DETECTED [facility] Comment on above: Performed By: #### G IPANEL ####[facility] [address]cv[address] [place], [place] [address]Dr. Jean Crow Vibrio Not detected Normal NOT DETECTED [facility] Comment on above: Performed By: #### G IPANEL ####[facility] [address] [place], [place] [address]Dr. Jean Crow Vibrio Cholera Not detected Normal NOT DETECTED [facility] Comment on above: Performed By: #### G IPANEL ####[facility] [address] [address]DrYury Crow Y. Enterocolitica Not detected Normal NOT DETECTED [facility] Comment on above: Performed By: #### G IPANEL ####[facility] [address] [address]DrYury Crow LACTATE/LACTIC ACIDon 2022 Lactate [Moles/Vol] 0.6 mmol/L Normal 0.4-2.0 [facility] Comment on above: Performed By: #### L ACT #### [facility] [address] [place] [address] Dr. Jean Crow LIPASEon 11-19-2022 Lipase [Catalytic activity/Vol] 73.0 U/L Normal 73.0-393.0 [facility] Comment on above: Performed By: #### C VDAGS #### [facility] [address] [address] [address] Jean Crow MAGNESIUMon 11-19-2022 Magnesium [Mass/Vol] 1.7 mg/dL Critically low 1.8-2.4 [facility] Comment on above: Performed By: #### M G ####[facility] [address] [place], [place] [address]DrYury Crow POINT OF CARE GLUCOSEon 10-30 Glucose [Mass/Vol] 96 mg/dL Normal 74-106 [facility] Comment on above: Performed By: #### P OCGLUC ####[facility] [address] [address]DrYury Crow PROF 14(COMP METB)on 023 Albumin [Mass/Vol] 3.2 g/dL Critically low 3.4-5.0 [facility] Comment on above: Performed By: #### C VDAGS #### [facility] [address] [place] [address] Dr. Jean Crow Albumin/Globulin [Mass ratio] 1.0 {ratio} Normal [facility] Comment on above: Performed By: #### C VDAGS #### [facility] [address] [address] [address] Jean Crow ALP [Catalytic activity/Vol] 88 U/L Normal 46-116 [facility] Comment on above: Performed By: #### C VDAGS #### [facility] [address] [address] [address] Jean Crow ALT [Catalytic activity/Vol] 41 U/L Normal 14-59 [facility] Comment on above: Performed By: #### C VDAGS #### [facility] [address] [address] [address] Jean Crow Anion gap [Moles/Vol] 11.8 mmol/L Normal [facility] Comment on above: Performed By: #### C VDAGS #### [facility] [address] [address] [address] Jean Crow AST [Catalytic activity/Vol] 78 U/L Critically high 15-37 [facility] Comment on above: Performed By: #### C VDAGS #### [facility] [address] [address] [address] Jean Crow Bilirubin [Mass/Vol] 1.0 mg/dL Normal 0.2-1.0 [facility] Comment on above: Performed By: #### C VDAGS #### [facility] [address] [address] [address] Jean Crow Calcium [Mass/Vol] 8.1 mg/dL Critically low 8.5-10.1 [facility] Comment on above: Performed By: #### C VDAGS #### [facility] [address] [address] [address] Jean Crow Chloride [Moles/Vol] 106 mmol/L Normal 98-107 [facility] Comment on above: Performed By: #### C VDAGS #### [facility] [address] [address] [address] Jean Crow CO2 [Moles/Vol] 29.0 mmol/L Normal 21.0-32.0 [facility] Comment on above: Performed By: #### C VDAGS #### [facility] [address] [address] [address] Jean Crow Creatinine [Mass/Vol] 0.77 mg/dL Normal 0.55-1.02 [facility] Comment on above: Performed By: #### C VDAGS #### [facility] [address] [address] [address] Jean Crow EGFR-AF ARGENTINE >60 Normal >=60 [facility] Comment on above: Performed By: #### C VDAGS #### [facility] [address] [address] [address] Jean Crow EGFR-NON AF ARGENTINE >60 Normal >=60 [facility] Comment on above: Performed By: #### C VDAGS #### [facility] [address] [place] [address] Dr. Jean Crow Globulin (S) [Mass/Vol] 3.1 g/dL Normal [facility] Comment on above: Performed By: #### C VDAGS #### [facility] [address] [address] [address] Jean Crow Glucose [Mass/Vol] 93 mg/dL Normal 74-106 [facility] Comment on above: Performed By: #### C VDAGS #### [facility] [address] [place] [address] Dr. Jean Crow Potassium [Moles/Vol] 3.8 mmol/L Normal 3.5-5.1 [facility] Comment on above: Performed By: #### C VDAGS #### [facility] [address] [address] [address] Jean Crow Protein [Mass/Vol] 6.3 g/dL Critically low 6.4-8.2 [facility] Comment on above: Performed By: #### C VDAGS #### [facility] [address] [place] [address] Dr. Jean Crow Sodium [Moles/Vol] 143 mmol/L Normal 136-145 [facility] Comment on above: Performed By: #### C VDAGS #### [facility] [address] [place] [address] Dr. Jean Crow Urea nitrogen [Mass/Vol] 18.0 mg/dL Normal 7.0-18.0 [facility] Comment on above: Performed By: #### C VDAGS #### [facility] [address] [place] [address] Dr. Jean Crow Urea nitrogen/Creatinine [Mass ratio] 23.4 mg/mg Normal [facility] Comment on above: Performed By: #### C VDAGS #### [facility] [address] [place] [address] Dr. Jean Crow PROTIMEon 11-19-2022 INR Coag (PPP) [Relative time] 0.96 {INR} Normal [facility] Comment on above: Performed By: #### C VDAGS #### [facility] [address] [place] [address] Dr. Jean Crow INR GUIDELINES SEE BELOW Normal [facility] Comment on above: Result Comment: ANMOL RED INR: 2.0 - 3.0 CONDITIONS NOT LISTED BELOW 2.5 - 3.5 FOR PROSTHETIC HEART VALVE REPLACEMENT 2.5 - 3.5 RECURRENT THROMBOSIS Performed By: #### C VDAGS #### [facility] [address] [place] [address] Dr. Jean Crow PT Coag (PPP) [Time] 10.2 s Normal 9.0-11.6 [facility] Comment on above: Performed By: #### C VDAGS #### [facility] [address] [place] [address] Dr. Jean Crow SYMPTOMATIC COVID-19 ANTIGEN on 11-19-2022 EUA Statement SEE BELOW Normal [facility] Comment on above: Result Comment: This test [...] sooner. Performed By: #### C VDAGS #### [facility] [address] [place] [address] Dr. Jean Crow SARS-CoV-2 (COVID-19) RNA BRIAN+probe Ql (Unsp spec) Negative Normal NEGATIVE [facility] Comment on above: Performed By: #### C VDAGS #### [facility] [address] [place] [address] Dr. Jean Crow TROPONIN, HIGH SENSITIVITYon 11-19-2022 HSTROP 49.8 pg/mL Normal 4.0-51.3 [facility] Comment on above: Result Comment: CUT- OFF POINTS HAVE BEEN ESTABLISHED BASED ON THE FOURTH UNIVERSAL DEFINITIONS OF MYOCARDIAL INFARCTION. THE UPPER REFERENCE LIMIT (URL) OF TROPONIN, DEFINED THE 99TH PERCENTILE OF cTnI DISTRIBUTION IN A REFERENCE POPULATION, HAS BEEN CONFIRMED THE DECISION THRESHOLD FOR CA DIAGNOSIS. Performed By: #### H STROPN #### [facility] [address] [place] [address] Dr. Jean Crow HSTROP 55.9 pg/mL Critically high 4.0-51.3 [facility] Comment on above: Result Comment: CUT- OFF POINTS HAVE BEEN ESTABLISHED BASED ON THE FOURTH UNIVERSAL DEFINITIONS OF MYOCARDIAL INFARCTION. THE UPPER REFERENCE LIMIT (URL) OF TROPONIN, DEFINED THE 99TH PERCENTILE OF cTnI DISTRIBUTION IN A REFERENCE POPULATION, HAS BEEN CONFIRMED THE DECISION THRESHOLD FOR CA DIAGNOSIS. Performed By: #### C VDAGS #### [facility] [address] [place] [address] Dr. Jean Crow LIPID PROFILEon 2022 CHOL-HDL RATIO NORM SEE BELOW Normal [facility] Comment on above: Result Comment: 3.3 - 4.4 LOW RISK 4.4 - 7.1 AVERAGE RISK 7.1 - 11.0 MODERATE RISK >11.0 HIGH RISK Performed By: #### C VDAGS #### [facility] [address] [address] [address] Jean Crow Cholesterol [Mass/Vol] 214 mg/dL Critically high <=200 [facility] Comment on above: Performed By: #### C VDAGS #### [facility] [address] [address] [address] Jean Crow Cholesterol in HDL [Mass/Vol] 61 mg/dL Critically high 40-60 [facility] Comment on above: Performed By: #### C VDAGS #### [facility] [address] [address] [address] Jean Crow Cholesterol in LDL [Mass/Vol] 143.0 mg/dL Normal [facility] Comment on above: Performed By: #### C VDAGS #### [facility] [address] [place] [address] Dr. Jean Crow Cholesterol.total/Ch olesterol in HDL [Mass ratio] 3.5 {ratio} Normal [facility] Comment on above: Performed By: #### C VDAGS #### [facility] [address] [address] [address] Jean Crow HDL NORMAL > or = 60 mg/dl - LOW CARDIOVASCULAR RISK <40 mg/dl - HIGH CARDIOVASCULAR RISK Normal [facility] Comment on above: Performed By: #### C VDAGS #### [facility] [address] [place] [address] Dr. Jean Crow LDL CALC NORMAL SEE BELOW Normal [facility] Comment on above: Result Comment: <100 mg/dl OPTIMAL 100 - 129 mg/dl NEAR OR ABOVE OPTIMAL 130 - 159 mg/dl BORDERLINE HIGH 160 - 189 mg/dl HIGH >190 mg/dl VERY HIGH Performed By: #### C VDAGS #### [facility] [address] [address] [address] Jean Crow Triglyceride [Mass/Vol] 50 mg/dL Normal <=150 [facility] Comment on above: Performed By: #### C VDAGS #### [facility] [address] [place] [address] Dr. Jean Crow VLDL CALC 10.0 mg/dL Normal [facility] Comment on above: Performed By: #### C VDAGS #### [facility] [address] [place] [address] Dr. Jean Crow MICROALB CREAT RATIO RANDOMo n 2022 mALB <1.3 Normal <=30.0 [facility] Comment on above: Performed By: #### C VDAGS #### [facility] [address] [place] [address] Dr. Jean Crow URINE CREAT 201.49 mg/dL Normal 20.00-300.00 [facility] Comment on above: Performed By: #### C VDAGS #### [facility] [address] [place] [address] Dr. Jean Crow PROF 14(COMP METB)on 023 Albumin [Mass/Vol] 3.5 g/dL Normal 3.4-5.0 [facility] Comment on above: Performed By: #### C VDAGS #### [facility] [address] [place] [address] Dr. Jean Crow Albumin/Globulin [Mass ratio] 1.0 {ratio} Normal [facility] Comment on above: Performed By: #### C VDAGS #### [facility] [address] [place] [address] Dr. Jean Crow ALP [Catalytic activity/Vol] 61 U/L Normal 46-116 [facility] Comment on above: Performed By: #### C VDAGS #### [facility] [address] [place] [address] Dr. Jean Crow ALT [Catalytic activity/Vol] 37 U/L Normal 14-59 [facility] Comment on above: Performed By: #### C VDAGS #### [facility] [address] [place] [address] Dr. Jean Crow Anion gap [Moles/Vol] 11.6 mmol/L Normal [facility] Comment on above: Performed By: #### C VDAGS #### [facility] [address] [place] [address] Dr. Jean Crow AST [Catalytic activity/Vol] 18 U/L Normal 15-37 [facility] Comment on above: Performed By: #### C VDAGS #### [facility] [address] [place] [address] Dr. Jean Crow Bilirubin [Mass/Vol] 0.5 mg/dL Normal 0.2-1.0 [facility] Comment on above: Performed By: #### C VDAGS #### [facility] [address] [place] [address] Dr. Jean Crow Calcium [Mass/Vol] 8.7 mg/dL Normal 8.5-10.1 [facility] Comment on above: Performed By: #### C VDAGS #### [facility] [address] [place] [address] Dr. Jean Crow Chloride [Moles/Vol] 107 mmol/L Normal 98-107 [facility] Comment on above: Performed By: #### C VDAGS #### [facility] [address] [place] [address] Dr. Jean Crow CO2 [Moles/Vol] 28.9 mmol/L Normal 21.0-32.0 [facility] Comment on above: Performed By: #### C VDAGS #### [facility] [address] [place] [address] Dr. Jean Crow Creatinine [Mass/Vol] 0.61 mg/dL Normal 0.55-1.02 [facility] Comment on above: Performed By: #### C VDAGS #### [facility] [address] [place] [address] Dr. Jean Crow EGFR-AF ARGENTINE >60 Normal >=60 [facility] Comment on above: Performed By: #### C VDAGS #### [facility] [address] [place] [address] Dr. Jean Crow EGFR-NON AF ARGENTINE >60 Normal >=60 [facility] Comment on above: Performed By: #### C VDAGS #### [facility] [address] [place] [address] Dr. Jean Crow Globulin (S) [Mass/Vol] 3.4 g/dL Normal [facility] Comment on above: Performed By: #### C VDAGS #### [facility] [address] [place] [address] Dr. Jean Crow Glucose [Mass/Vol] 105 mg/dL Normal 74-106 [facility] Comment on above: Performed By: #### C VDAGS #### [facility] [address] [place] [address] Dr. Jean Crow Potassium [Moles/Vol] 3.5 mmol/L Normal 3.5-5.1 [facility] Comment on above: Performed By: #### C VDAGS #### [facility] [address] [place] [address] Dr. Jean Crow Protein [Mass/Vol] 6.9 g/dL Normal 6.4-8.2 [facility] Comment on above: Performed By: #### C VDAGS #### [facility] [address] [place] [address] Dr. Jean Crow Sodium [Moles/Vol] 144 mmol/L Normal 136-145 [facility] Comment on above: Performed By: #### C VDAGS #### [facility] [address] [place] [address] Dr. Jean Crow Urea nitrogen [Mass/Vol] 18.0 mg/dL Normal 7.0-18.0 [facility] Comment on above: Performed By: #### C VDAGS #### [facility] [address] [place] [address] Dr. Jean Crow Urea nitrogen/Creatinine [Mass ratio] 29.5 mg/mg Normal [facility] Comment on above: Performed By: #### C VDAGS #### [facility] [address] [place] [address] Dr. Jean Crow IMMUNOGLOBULIN E, TOTALon Immunoglobulin E, Total 25 IU/mL Normal 6-495 [facility] Comment on above: Performed By: #### I GETOT ####[facility] [address] [address]Dr. eJan Crow ASPERGILLUS AB, QUANTITATIVE DIDon 11-03-2022 Aspergillus flavus Negative Normal Neg:<1:1 [facility] Comment on above: Performed By: #### A SPDID ####[facility] [address] [id number]. Jean Crow Aspergillus fumigatus Negative Normal Neg:<1:1 [facility] Comment on above: Performed By: #### A SPDID ####[facility] [address] [address]Dr. Jean Crow Aspergillus niger Negative Normal Neg:<1:1 [facility] Comment on above: Performed By: #### A SPDID ####[facility] [address] [address]Dr. Jean Crow ANCA (ANTINEUTROPHIL CYTOPLA MSMIC ABon 11-01-2022 Atypical pANCA <1:20 Normal Neg:<1:20 [facility] Comment on above: Result Comment: The atypical pANCA pattern has been observed in a significant percentage of patients with ulcerative colitis, primary sclerosing cholangitis and autoimmune hepatitis. Performed By: #### A NCAA ####[facility] [address] [address]Dr. Jean Crow Cytoplasmic (C-ANCA) <1:20 Normal Neg:<1:20 [facility] Comment on above: Performed By: #### A NCAA ####[facility] [address] [address]Dr. Jean Crow Perinuclear (P-ANCA) <1:20 Normal Neg:<1:20 [facility] Comment on above: Result Comment: The presence of positive fluorescence exhibiting P-ANCA or C-ANCA patterns alone is not specific for the diagnosis of Abiodun's Granulomatosis (WG) or microscopic polyangiitis. Decisions about treatment should not be based solely on ANCA IFA results. The International ANCA [employer] Consensus recommends follow up testing of positive sera with both AL-3 and MPO-ANCA enzyme immunoassays. As many as 5% serum samples are positive only by EIA. Ref. AM J Clin Pathol 1999;111:507-513. Performed By: #### A NCAA ####[facility] [address] [place], [place] [address]YvDr. Jean Crow CBC AUTO DIFFon 10-30-2022 BASO # 0.0 103/ul Normal 0.0-0.1 [facility] Comment on above: Performed By: #### C BC #### [facility] [address] [address] [address] Jean Crow Basophils/100 WBC (Bld) 0.3 % Normal 0.2-2.0 [facility] Comment on above: Performed By: #### C BC #### [facility] [address] [address] [address] Jean Crow EO # 0.1 103/ul Normal 0.0-0.7 [facility] Comment on above: Performed By: #### C BC #### [facility] [address] [address] [address] Jean Crow Eosinophils/100 WBC (Bld) 1.0 % Normal 0.9-7.0 [facility] Comment on above: Performed By: #### C BC #### [facility] [address] [address] [address] Jean Crow Erythrocyte distribution width (RBC) [Ratio] 15.3 % Critically high 11.0-15.0 [facility] Comment on above: Performed By: #### C BC #### [facility] [address] [address] [address] Jean Crow Hematocrit (Bld) [Volume fraction] 38.5 % Normal 36.0-48.0 [facility] Comment on above: Performed By: #### C BC #### [facility] [address] [place] [address] Dr. Jean Crow Hemoglobin (Bld) [Mass/Vol] 12.2 g/dL Normal 12.0-16.0 [facility] Comment on above: Performed By: #### C BC #### [facility] [address] [address] [address] Jean Crow IG # 0.08 10e3/ul Critically high 0.00-0.03 [facility] Comment on above: Performed By: #### C BC #### [facility] [address] [place] [address] Dr. Jean Crow IG % 1.0 % Critically high 0.0-0.5 [facility] Comment on above: Performed By: #### C BC #### [facility] [address] [place] [address] Dr. Jean Crow LYMPH # 2.3 103/ul Normal 1.2-3.8 [facility] Comment on above: Performed By: #### C BC #### [facility] [address] [place] [address] Dr. Jean Crow Lymphocytes/100 WBC (Bld) 28.6 % Normal 20.5-60.0 [facility] Comment on above: Performed By: #### C BC #### [facility] [address] [place] [address] Dr. Jean Crow MANUAL DIFF REQ NO Normal [facility] Comment on above: Performed By: #### C BC #### [facility] [address] [place] [address] Dr. Jean Crow MCH (RBC) [Entitic mass] 28.2 pg Normal 26.7-34.0 [facility] Comment on above: Performed By: #### C BC #### [facility] [address] [place] [address] Dr. Jean Crow MCHC (RBC) [Mass/Vol] 31.7 g/dL Normal 29.9-35.2 [facility] Comment on above: Performed By: #### C BC #### [facility] [address] [place] [address] Dr. Jean Crow MCV (RBC) [Entitic vol] 89.1 fL Normal 81.0-99.0 [facility] Comment on above: Performed By: #### C BC #### [facility] [address] [place] [address] Dr. Jean Crow MONO # 0.6 103/ul Normal 0.3-0.8 [facility] Comment on above: Performed By: #### C BC #### [facility] [address] [place] [address] Dr. Jean Crow Monocytes/100 WBC (Bld) 7.2 % Normal 1.7-12.0 [facility] Comment on above: Performed By: #### C BC #### [facility] [address] [place] [address] Dr. Jean Crow NEUT # 4.9 103/ul Normal 1.4-6.5 [facility] Comment on above: Performed By: #### C BC #### [facility] [address] [place] [address] Dr. Jean Crow Neutrophils/100 WBC (Bld) 61.9 % Normal 43.0-75.0 [facility] Comment on above: Performed By: #### C BC #### [facility] [address] [place] [address] Dr. Jean Crow Platelet mean volume (Bld) [Entitic vol] 8.6 fL Critically low 9.5-13.5 [facility] Comment on above: Performed By: #### C BC #### [facility] [address] [place] [address] Dr. Jean Crow PLT 304 103/ul Normal 150-450 [facility] Comment on above: Performed By: #### C BC #### [facility] [address] [place] [address] Dr. Jean Crow RBC 4.32 106/ul Normal 4.20-5.40 [facility] Comment on above: Performed By: #### C BC #### [facility] [address] [place] [address] Dr. Jean Crow WBC 7.9 103/ul Normal 4.0-11.0 [facility] Comment on above: Performed By: #### C BC #### [facility] [address] [place] [address] Dr. Jean Crow Urinalysis - AUTOMATEDon Appearance (U) cloudy [employer] Other Bilirubin Ql (U) Negative [employer] Other Color (U) orange [employer] Other Glucose Ql (U) 100 [employer] Other Hemoglobin Ql (U) Negative [employer] Other Ketones Ql (U) Negative [employer] Other Leukocyte esterase Test strip Ql (U) large [employer] Other Nitrite Ql (U) Positive [employer] Other pH (U) 5.0 [pH] [employer] Other Protein Ql (U) 30 [employer] Other Specific gravity (U) [Rel density] 1.010 [employer] Other Urobilinogen (U) [Mass/Vol] 1.0 mg/dL [employer] Other Urinalysis - AUTOMATED [employer] Other Urine Cultureon 10-05-2022 Bacteria identified Cx Nom (U) [employer] Other Urine culture routineOrdered By: Naomie Berry on 10-05-2022 Bacteria identified Cx Nom (U) 2 Days [facility] CBC AUTO DIFFon 09-16-2022 BASO # 0.0 103/ul Normal 0.0-0.1 [facility] Comment on above: Performed By: #### C VDAGS #### [facility] [address] [address] [address] Jean Crow Basophils/100 WBC (Bld) 0.2 % Normal 0.2-2.0 [facility] Comment on above: Performed By: #### C VDAGS #### [facility] [address] [place] [address] Dr. Jean Crow EO # 0.0 103/ul Normal 0.0-0.7 [facility] Comment on above: Performed By: #### C VDAGS #### [facility] [address] [place] [address] Dr. Jean Crow Eosinophils/100 WBC (Bld) 0.0 % Critically low 0.9-7.0 [facility] Comment on above: Performed By: #### C VDAGS #### [facility] [address] [place] [address] Dr. Jean Crow Erythrocyte distribution width (RBC) [Ratio] 16.3 % Critically high 11.0-15.0 [facility] Comment on above: Performed By: #### C VDAGS #### [facility] [address] [place] [address] Dr. Jean Crow Hematocrit (Bld) [Volume fraction] 37.4 % Normal 36.0-48.0 [facility] Comment on above: Performed By: #### C VDAGS #### [facility] [address] [place] [address] Dr. Jean Crow Hemoglobin (Bld) [Mass/Vol] 12.0 g/dL Normal 12.0-16.0 [facility] Comment on above: Performed By: #### C VDAGS #### [facility] [address] [place] [address] Dr. Jean Crow IG # 0.30 10e3/ul Critically high 0.00-0.03 [facility] Comment on above: Performed By: #### C VDAGS #### [facility] [address] [place] [address] Dr. Jean Crow IG % 2.3 % Critically high 0.0-0.5 [facility] Comment on above: Performed By: #### C VDAGS #### [facility] [address] [place] [address] Dr. Jean Crow LYMPH # 0.8 103/ul Critically low 1.2-3.8 [facility] Comment on above: Performed By: #### C VDAGS #### [facility] [address] [place] [address] Dr. Jean Crow Lymphocytes/100 WBC (Bld) 6.0 % Critically low 20.5-60.0 [facility] Comment on above: Performed By: #### C VDAGS #### [facility] [address] [place] [address] Dr. Jean Crow MANUAL DIFF REQ NO Normal [facility] Comment on above: Performed By: #### C VDAGS #### [facility] [address] [place] [address] Dr. Jean Crow MCH (RBC) [Entitic mass] 27.6 pg Normal 26.7-34.0 [facility] Comment on above: Performed By: #### C VDAGS #### [facility] [address] [place] [address] Dr. Jean Crow MCHC (RBC) [Mass/Vol] 32.1 g/dL Normal 29.9-35.2 [facility] Comment on above: Performed By: #### C VDAGS #### [facility] [address] [place] [address] Dr. Jean Crow MCV (RBC) [Entitic vol] 86.0 fL Normal 81.0-99.0 [facility] Comment on above: Performed By: #### C VDAGS #### [facility] [address] [place] [address] Dr. Jean Crow MONO # 0.1 103/ul Critically low 0.3-0.8 [facility] Comment on above: Performed By: #### C VDAGS #### [facility] [address] [place] [address] Dr. Jean Crow Monocytes/100 WBC (Bld) 1.1 % Critically low 1.7-12.0 [facility] Comment on above: Performed By: #### C VDAGS #### [facility] [address] [place] [address] Dr. Jean Crow NEUT # 11.9 103/ul Critically high 1.4-6.5 [facility] Comment on above: Performed By: #### C VDAGS #### [facility] [address] [place] [address] Dr. Jean Crow Neutrophils/100 WBC (Bld) 90.4 % Critically high 43.0-75.0 [facility] Comment on above: Performed By: #### C VDAGS #### [facility] [address] [place] [address] Dr. Jean Crow Platelet mean volume (Bld) [Entitic vol] 9.2 fL Critically low 9.5-13.5 [facility] Comment on above: Performed By: #### C VDAGS #### [facility] [address] [place] [address] Dr. Jean Crow PLT 235 103/ul Normal 150-450 [facility] Comment on above: Performed By: #### C VDAGS #### [facility] [address] [place] [address] Dr. Jean Crow RBC 4.35 106/ul Normal 4.20-5.40 [facility] Comment on above: Performed By: #### C VDAGS #### [facility] [address] [place] [address] Dr. Jean Crow WBC 13.1 103/ul Critically high 4.0-11.0 [facility] Comment on above: Performed By: #### C VDAGS #### [facility] [address] [place] [address] Dr. Jean Crow PROF 14(COMP METB)on 023 Albumin [Mass/Vol] 2.8 g/dL Critically low 3.4-5.0 [facility] Comment on above: Performed By: #### C VDAGS #### [facility] [address] [place] [address] Dr. Jean Crow Albumin/Globulin [Mass ratio] 0.8 {ratio} Normal [facility] Comment on above: Performed By: #### C VDAGS #### [facility] [address] [place] [address] Dr. Jean Crow ALP [Catalytic activity/Vol] 82 U/L Normal 46-116 [facility] Comment on above: Performed By: #### C VDAGS #### [facility] [address] [place] [address] Dr. Jean Crow ALT [Catalytic activity/Vol] 30 U/L Normal 14-59 [facility] Comment on above: Performed By: #### C VDAGS #### [facility] [address] [place] [address] Dr. Jean Crow Anion gap [Moles/Vol] 14.7 mmol/L Normal [facility] Comment on above: Performed By: #### C VDAGS #### [facility] [address] [place] [address] [address] Jean Crow AST [Catalytic activity/Vol] 13 U/L Critically low 15-37 [facility] Comment on above: Performed By: #### C VDAGS #### [facility] [address] [place] [address] Dr. Jean Crow Bilirubin [Mass/Vol] 0.4 mg/dL Normal 0.2-1.0 [facility] Comment on above: Performed By: #### C VDAGS #### [facility] [address] [place] [address] Dr. Jean Crow Calcium [Mass/Vol] 8.5 mg/dL Normal 8.5-10.1 [facility] Comment on above: Performed By: #### C VDAGS #### [facility] [address] [place] [address] Dr. Jean Crow Chloride [Moles/Vol] 101 mmol/L Normal 98-107 [facility] Comment on above: Performed By: #### C VDAGS #### [facility] [address] [place] [address] Dr. Jean Crow CO2 [Moles/Vol] 26.0 mmol/L Normal 21.0-32.0 [facility] Comment on above: Performed By: #### C VDAGS #### [facility] [address] [place] [address] Dr. Jean Crow Creatinine [Mass/Vol] 0.59 mg/dL Normal 0.55-1.02 [facility] Comment on above: Performed By: #### C VDAGS #### [facility] [address] [place], [place] [address] Dr. Jean Crow EGFR-AF ARGENTINE >60 Normal >=60 [facility] Comment on above: Performed By: #### C VDAGS #### [facility] [address] [place] [address] Dr. Jean Crow EGFR-NON AF ARGENTINE >60 Normal >=60 [facility] Comment on above: Performed By: #### C VDAGS #### [facility] [address] [place] [address] Dr. Jean Crow Globulin (S) [Mass/Vol] 3.4 g/dL Normal [facility] Comment on above: Performed By: #### C VDAGS #### [facility] [address] [place] [address] Dr. Jean Crow Glucose [Mass/Vol] 240 mg/dL Critically high 74-106 [facility] Comment on above: Performed By: #### C VDAGS #### [facility] [address] [place] [address] Dr. Jean Crow Potassium [Moles/Vol] 3.7 mmol/L Normal 3.5-5.1 [facility] Comment on above: Performed By: #### C VDAGS #### [facility] [address] [place] [address] Dr. Jean Crow Protein [Mass/Vol] 6.2 g/dL Critically low 6.4-8.2 [facility] Comment on above: Performed By: #### C VDAGS #### [facility] [address] [place] [address] Dr. Jean Crow Sodium [Moles/Vol] 138 mmol/L Normal 136-145 [facility] Comment on above: Performed By: #### C VDAGS #### [facility] [address] [place] [address] Dr. Jean Crow Urea nitrogen [Mass/Vol] 17.0 mg/dL Normal 7.0-18.0 [facility] Comment on above: Performed By: #### C VDAGS #### [facility] [address] [place] [address] Dr. Jean Crow Urea nitrogen/Creatinine [Mass ratio] 28.8 mg/mg Normal [facility] Comment on above: Performed By: #### C VDAGS #### [facility] [address] [place] [address] Dr. Jean Crow BNPon 09-15-2022 Natriuretic peptide B (Bld) [Mass/Vol] 89.0 pg/mL Normal <=900.0 [facility] Comment on above: Performed By: #### H STROPN, BNP #### [facility] [address] [place] [address] Dr. Jean Crow CBC AUTO DIFFon 09-15-2022 BASO # 0.0 103/ul Normal 0.0-0.1 [facility] Comment on above: Performed By: #### C VDAGS #### [facility] [address] [place] [address] Dr. Jean Crow Basophils/100 WBC (Bld) 0.3 % Normal 0.2-2.0 [facility] Comment on above: Performed By: #### C VDAGS #### [facility] [address] [place] [address] Dr. Jean Crow EO # 0.0 103/ul Normal 0.0-0.7 [facility] Comment on above: Performed By: #### C VDAGS #### [facility] [address] [place] [address] Dr. Jean Crow Eosinophils/100 WBC (Bld) 0.3 % Critically low 0.9-7.0 [facility] Comment on above: Performed By: #### C VDAGS #### [facility] [address] [place] [address] Dr. Jean Crow Erythrocyte distribution width (RBC) [Ratio] 16.5 % Critically high 11.0-15.0 [facility] Comment on above: Performed By: #### C VDAGS #### [facility] [address] [place] [address] Dr. Jean Crow Hematocrit (Bld) [Volume fraction] 37.1 % Normal 36.0-48.0 [facility] Comment on above: Performed By: #### C VDAGS #### [facility] [address] [place] [address] [address] Jean Crow Hemoglobin (Bld) [Mass/Vol] 11.9 g/dL Critically low 12.0-16.0 [facility] Comment on above: Performed By: #### C VDAGS #### [facility] [address] [address] [address] Jean Crow IG # 0.25 10e3/ul Critically high 0.00-0.03 [facility] Comment on above: Performed By: #### C VDAGS #### [facility] [address] [place] [address] Dr. Jean Crow IG % 2.4 % Critically high 0.0-0.5 [facility] Comment on above: Performed By: #### C VDAGS #### [facility] [address] [place] [address] Dr. Jean Crow LYMPH # 2.1 103/ul Normal 1.2-3.8 [facility] Comment on above: Performed By: #### C VDAGS #### [facility] [address] [place] [address] Dr. Jean Crow Lymphocytes/100 WBC (Bld) 19.3 % Critically low 20.5-60.0 [facility] Comment on above: Performed By: #### C VDAGS #### [facility] [address] [place] [address] Dr. Jean Crow MANUAL DIFF REQ NO Normal [facility] Comment on above: Performed By: #### C VDAGS #### [facility] [address] [place] [address] Dr. Jean Crow MCH (RBC) [Entitic mass] 27.9 pg Normal 26.7-34.0 [facility] Comment on above: Performed By: #### C VDAGS #### [facility] [address] [place] [address] Dr. Jean Crow MCHC (RBC) [Mass/Vol] 32.1 g/dL Normal 29.9-35.2 [facility] Comment on above: Performed By: #### C VDAGS #### [facility] [address] [address] [address] Jean Crow MCV (RBC) [Entitic vol] 86.9 fL Normal 81.0-99.0 [facility] Comment on above: Performed By: #### C VDAGS #### [facility] [address] [place] [address] Dr. Jean Crow MONO # 0.7 103/ul Normal 0.3-0.8 [facility] Comment on above: Performed By: #### C VDAGS #### [facility] [address] [place] [address] Dr. Jean Crow Monocytes/100 WBC (Bld) 6.1 % Normal 1.7-12.0 [facility] Comment on above: Performed By: #### C VDAGS #### [facility] [address] [place] [address] Dr. Jean Crow NEUT # 7.6 103/ul Critically high 1.4-6.5 [facility] Comment on above: Performed By: #### C VDAGS #### [facility] [address] [place] [address] Dr. Jean Crow Neutrophils/100 WBC (Bld) 71.6 % Normal 43.0-75.0 [facility] Comment on above: Performed By: #### C VDAGS #### [facility] [address] [place] [address] Dr. Jean Crow Platelet mean volume (Bld) [Entitic vol] 9.1 fL Critically low 9.5-13.5 [facility] Comment on above: Performed By: #### C VDAGS #### [facility] [address] [place] [address] Dr. Jean Crow PLT 244 103/ul Normal 150-450 [facility] Comment on above: Performed By: #### C VDAGS #### [facility] [address] [place] [address] Dr. Jean Crow RBC 4.27 106/ul Normal 4.20-5.40 [facility] Comment on above: Performed By: #### C VDAGS #### [facility] [address] [address] [address] Jean Crow WBC 10.6 103/ul Normal 4.0-11.0 [facility] Comment on above: Performed By: #### C VDAGS #### [facility] [address] [id number] Jean Crow CTA CHEST WO W [...] TYLER BEAN Date: 2022-09-15 11:31 Normal [facility] Covid-19 PCR (CVDTBH)on 08-29 SARS-CoV-2 (COVID-19) RNA BRIAN+probe Ql (Unsp spec) Indeterminate Abnormal NOT DETECTED [facility] Comment on above: Result Comment: Spec imen tested x2 to verify. Please resubmit new specimen if symptoms persist Performed By: #### C VDTBH ####[facility] [address] [place] [address]Dr. Jean Crow D-DIMERon 09-15-2022 D-DIMER 0.72 mg/L FEU Critically high <=0.59 [facility] Comment on above: Performed By: #### D DIM ####[facility] [address] [place] [address]Dr. Jean Crow D-DIMER COMMENTS SEE BELOW Normal [facility] Comment on above: Result Comment: Incr eases [...] generalized hospitalization. Performed By: #### D DIM ####[facility] [address] [place], [place] [address]Dr. Jean Crow PROF 14(COMP METB)on 023 Albumin [Mass/Vol] 3.0 g/dL Critically low 3.4-5.0 [facility] Comment on above: Performed By: #### C MP ####[facility] [address] [place], [place] [address]Dr. Jean Crow Albumin/Globulin [Mass ratio] 0.9 {ratio} Normal [facility] Comment on above: Performed By: #### C MP ####[facility] [address] [place], [place] [address]Dr. Jean Crow ALP [Catalytic activity/Vol] 83 U/L Normal 46-116 [facility] Comment on above: Performed By: #### C MP ####[facility] [address] [place] [address]Dr. Jean Crow ALT [Catalytic activity/Vol] 30 U/L Normal 14-59 [facility] Comment on above: Performed By: #### C MP ####[facility] [address] [place] [id number]. Jean Crow Anion gap [Moles/Vol] 12.6 mmol/L Normal [facility] Comment on above: Performed By: #### C MP ####[facility] [address] [place] [id number]. Jean Crow AST [Catalytic activity/Vol] 18 U/L Normal 15-37 [facility] Comment on above: Performed By: #### C MP ####[facility] [address] [place] [address]Dr. Jean Crow Bilirubin [Mass/Vol] 0.3 mg/dL Normal 0.2-1.0 [facility] Comment on above: Performed By: #### C MP ####[facility] [address] [place], [place] [address]Dr. Jean Crow Calcium [Mass/Vol] 8.3 mg/dL Critically low 8.5-10.1 [facility] Comment on above: Performed By: #### C MP ####[facility] [address] [place] [address]Dr. Jean Crow Chloride [Moles/Vol] 103 mmol/L Normal 98-107 [facility] Comment on above: Performed By: #### C MP ####[facility] [address] [place], [place] [address]Dr. Jean Crow CO2 [Moles/Vol] 28.6 mmol/L Normal 21.0-32.0 [facility] Comment on above: Performed By: #### C MP ####[facility] [address] [place] [address]Dr. Jean Crow Creatinine [Mass/Vol] 0.55 mg/dL Normal 0.55-1.02 [facility] Comment on above: Performed By: #### C MP ####[facility] [address] [place], [place] [address]Dr. Jean Tristin EGFR-AF ARGENTINE >60 Normal >=60 [facility] Comment on above: Performed By: #### C MP ####[facility] [address] [place] [address]Dr. Jean Crow EGFR-NON AF ARGENTINE >60 Normal >=60 [facility] Comment on above: Performed By: #### C MP ####[facility] [address] [place] [address]Dr. Jean Crow Globulin (S) [Mass/Vol] 3.3 g/dL Normal [facility] Comment on above: Performed By: #### C MP ####[facility] [address] [place] [address]Dr. Jean Crow Glucose [Mass/Vol] 130 mg/dL Critically high 74-106 [facility] Comment on above: Performed By: #### C MP ####[facility] [address] [place] [address]Dr. Jean Crow Potassium [Moles/Vol] 3.2 mmol/L Critically low 3.5-5.1 [facility] Comment on above: Performed By: #### C MP ####[facility] [address] [place], [place] [address]Dr. Jean Crow Protein [Mass/Vol] 6.3 g/dL Critically low 6.4-8.2 [facility] Comment on above: Performed By: #### C MP ####[facility] [address] [place], [place] [address]Dr. Jean Crow Sodium [Moles/Vol] 141 mmol/L Normal 136-145 [facility] Comment on above: Performed By: #### C MP ####[facility] [address] [place] [address]Dr. Jean Crow Urea nitrogen [Mass/Vol] 23.0 mg/dL Critically high 7.0-18.0 [facility] [facility] Comment on above: Performed By: #### C MP ####[facility] [address] [place], [place] [address]Dr. Jean Crow Urea nitrogen/Creatinine [Mass ratio] 41.8 mg/mg Normal [facility] Comment on above: Performed By: #### C MP ####[facility] [address] [place], [place] [address]Dr. Jean Crow SYMPTOMATIC COVID-19 ANTIGEN on 09-15-2022 EUA Statement SEE BELOW Normal [facility] Comment on above: Result Comment: This test [...] sooner. Performed By: #### C GLORIAAGS #### [facility] [address] [place] [address] Dr. Jean Crow SARS-CoV-2 (COVID-19) RNA BRIAN+probe Ql (Unsp spec) Negative Normal NEGATIVE [facility] Comment on above: Performed By: #### C VDAGS #### [facility] [address] [place] [address] Dr. Jean Crow TROPONIN, HIGH SENSITIVITYon 09-15-2022 HSTROP 9.2 pg/mL Normal 4.0-51.3 [facility] Comment on above: Result Comment: CUT- OFF POINTS HAVE BEEN ESTABLISHED BASED ON THE FOURTH UNIVERSAL DEFINITIONS OF MYOCARDIAL INFARCTION. THE UPPER REFERENCE LIMIT (URL) OF TROPONIN, DEFINED THE 99TH PERCENTILE OF cTnI DISTRIBUTION IN A REFERENCE POPULATION, HAS BEEN CONFIRMED THE DECISION THRESHOLD FOR CA DIAGNOSIS. Performed By: #### H STROPN, BNP #### [facility] [address] [place], [place] [id number] Dr. Jean Crow XR CHEST 1 Von [...] by: KARSON SCHMIDT Date: 2022-09-15 09:34 Normal [facility] CHEMISTRYOrdered By: SYSTEM SYSTEM on 09-07-2022 Albumin [...] [Vol rate/Area] mL/min/1.73 m2 Normal >=59mL/min/1.73 m2 [facility] Chem S Globulin (S) [Mass/Vol] 2.8 g/dL Normal 1.4 - 4.0 gm/dL FT Remisol Glucose [Mass/Vol] 148 mg/dL Normal 55 - 199 mg/dL FT Remisol Potassium [Moles/Vol] 3.7 mmol/L Normal 3.5 - 5.3 mmol/L FT Remisol Protein [Mass/Vol] 5.8 g/dL Low 6.0 - 7.8 gm/dL [facility] Remisol Sodium [Moles/Vol] 138 mmol/L Normal 135 [...] 9 pg/mL Normal 5 - 80 pg/mL [facility] HemeManSS COAGULATIONOrdered By: Arya Winter on 09-07-2022 [...] 11.2 E9/L High 4.0 - 11.0 E9/L [facility] HemeAutoSS COVID/FLU RT-PCRon 3 SARS-CoV-2 (COVID-19) RNA BRIAN+probe Ql (Unsp spec) Negative [employer] [facility] [employer] Other COVID/FLU RT-PCR Negative [facility] [employer] Other CALCIUMon 08-10-2022 Calcium [Mass/Vol] 9.4 mg/dL Normal 8.5-10.1 [facility] Comment on above: Performed By: #### C VDAGS #### [facility] [address] [place] [address] Dr. Jean Crow CHEMISTRYOrdered By: Lab ROP User on 05-22-2022 Glucose [Mass/Vol] 97 mg/dL Normal 55 - 99 mg/dL FTM C POC Subsection Comment on above: Result Comment: Sugar muhammad RN/MD POC Device SN [id number] Invalid Interpretation Code [facility] POC Subsection POC User ID [id number] Invalid Interpretation Code [facility] POC Subsection POC Username SONAL KAUR Invalid Interpretation Code FT POC Subsection Glucose [Mass/Vol] 78 mg/dL Normal 55 - 99 mg/dL F[facility] C POC Subsection Comment on above: Result Comment: Sugar muhammad RN/MD POC Device SN [id number] Invalid Interpretation Code [facility] POC Subsection POC User ID [id number] Invalid Interpretation Code [facility] POC Subsection POC Username SONAL KAUR Invalid Interpretation Code [facility] POC Subsection Glucose [Mass/Vol] 94 mg/dL Normal 55 - 99 mg/dL F[facility] C POC Subsection Comment on above: Result Comment: Sugar muhammad RN/MD POC Device SN [id number] Invalid Interpretation Code [facility] POC Subsection POC User ID [id number] Invalid Interpretation Code FT POC Subsection POC Username CelydelvinJames perezyssa Invalid Interpretation Code FT POC Subsection CHEMISTRYOrdered By: SYSTEM SYSTEM on 05-22-2022 Troponin I.cardiac [Mass/Vol] 6.50 pg/mL Low 10.10 - 27.10 pg/mL [facility] Remisol Anion gap [Moles/Vol] 13 mmol/L Normal [...] [Vol rate/Area] mL/min/1.73 m2 Normal >=59mL/min/1.73 m2 [facility] Chem S GFR/1.73 sq M.predicted among non-blacks MDRD (S/P/Bld) [Vol rate/Area] mL/min/1.73 m2 Normal >=59mL/min/1.73 m2 [facility] Chem S Glucose [Mass/Vol] 90 mg/dL Normal [...] g/dL Normal 6.0 - 7.8 gm/dL [facility] Remisol Sodium [Moles/Vol] 133 mmol/L Low 135 [...] Comment: Slid e reviewed by [facility]on SARS-CoV-2 (COVID-19) RNA BRIAN+probe Ql (Unsp spec) Not detected Normal NOT DETECTED [facility] Comment on above: Result Comment: When [...] for this test is supported by the Presentation Team Member of Health and Human Service's declaration that [...] longer be used). Performed By: #### C [facility] ####[facility] [address] [place], [place] [address]KhYury Crow XR CHEST 1 Von 05-03-2022 XR [...] KARSON CHAUDHARY Date: 2022-05-03 21:16 Normal [facility] XR chest 2V*on 05-02-2022 XR chest 2V* [facility] [employer] Other XR chest 2V* [facility] [employer] Other XR chest 2V* [address] [place] [address] [employer] Other XR chest 2V* [place], [place] [id number] [place] [address] [employer] Other XR chest 2V* XRay Report [employer] Other XR chest 2V* Signed [employer] Other XR chest 2V* Patient: Carolina Gutierrez MR#: [id number] Eleva [employer] Other XR chest 2V* : 1960 Acct:[id number] [employer] Other XR chest 2V* Age/Sex: 61 / F ADM Date: 05/02/22 [employer] Other XR chest 2V* Loc: XDUCLY Room: Type: [facility] [employer] Other XR chest 2V* Attending Dr: Naomie Berry DELINQUENT TAX COLLECTION ASSISTANT-C [employer] Other XR chest 2V* Copies to: RADHA Jacob Eleva [employer] Other XR chest 2V* Ordering Provider: RADHA Jacob Eleva [employer] Other XR chest 2V* Date of Service: 05/02/22 Eleva [employer] Other XR chest 2V* XR/XR chest 2V*: COUGH [employer] Other XR chest 2V* Chest 2 views [employer] [facility] [employer] Other XR chest 2V* CLINICAL HISTORY: Productive cough and shortness of breath for one month. [employer] Other XR chest 2V* COMPARISON: Chest x-ray 04/15/2022 [employer] Other XR chest 2V* FINDINGS: [employer] Other XR chest 2V* Heart appears normal in size. Lungs are clear. No free air. Osseous structures demonstrate [employer] Other XR chest 2V* grossly stable compression deformities of the thoracic spine. Degenerative changes are also noted [employer] Other XR chest 2V* involving the shoulders with questionable left joint effusion. [employer] Other XR chest 2V* XR/XR chest 2V* [employer] Other XR chest 2V* IMPRESSION: [employer] Other XR chest 2V* NO ACUTE CARDIOPULMONARY ABNORMALITY. [employer] Other XR chest 2V* Impression dictated by: Elvia Florez Jr.OYury05/02/2022 5:01 PM [employer] Other XR chest 2V* Dictation Location: RADIO--14 [employer] Other XR chest 2V* Transcribed By: PWS 05/02/[address] [place] [address] [employer] Other XR chest 2V* Dictated By: Bill Hutchison Jr, DO 05/02/[address] [place] [address] [employer] Other XR chest 2V* Signed By: [facility] Other XR chest 2V* 05/02/[address] [place] [address] [employer] Other XR chest 2V*on 04-15-2022 SARS-CoV-2 (COVID-19) RNA BRIAN+probe Ql (Unsp spec) CLINICAL HISTORY: Cough and shortness of breath. COVID + 10 days ago. [employer] Other XR chest 2V* [facility] [employer] Other XR chest 2V* [facility] [employer] Other XR chest 2V* [address] [place] [address] [employer] Other XR chest 2V* [address] [employer] Other XR chest 2V* XRay Report [employer] Other XR chest 2V* Signed [employer] Other XR chest 2V* Patient: Carolina Gutierrez MR#: [id number] Eleva [employer] Other XR chest 2V* : 1960 Acct:[id number] [employer] Other XR chest 2V* Age/Sex: 61 / F ADM Date: 04/15/22 [employer] Other XR chest 2V* Loc: XDUCLY Room: Type: [facility] [employer] Other XR chest 2V* Attending Dr: Consuelo Rosales APRN [employer] Other XR chest 2V* Copies to: Consuelo Rosales APRN [employer] Other XR chest 2V* Ordering Provider: Consuelo Rosales APRN [employer] Other XR chest 2V* Date of Service: 04/15/22 [employer] Other XR chest 2V* XR/XR chest 2V*: Persistent cough [employer] Other XR chest 2V* PA AND LATERAL CHEST: [employer] Other XR chest 2V* COMPARISON: 11/08/2021 [employer] Other XR chest 2V* There is no focal parenchymal consolidation, effusion or pneumothorax. The cardiac, hilar and [employer] Other XR chest 2V* mediastinal silhouettes are within normal limits. There is no vascular congestion. The [employer] Other XR chest 2V* visualized bony structures are osteopenic. There are compression fractures which were also seen [employer] Other XR chest 2V* previously . Mild endplate spurring and subtle dextroscoliotic curvature. There is suggestion of [employer] Other XR chest 2V* slight inferior subluxation of the left humeral head. [employer] Other XR chest 2V* XR/XR chest 2V* [employer] Other XR chest 2V* IMPRESSION: [employer] Other XR chest 2V* NO ACUTE CARDIOPULMONARY ABNORMALITY. [facility] Other XR chest 2V* Impression dictated by: Marisa Merlos M.D.04/15/2022 2:09 PM [facility] Other XR chest 2V* Dictation Location: RADIO--02 [facility] Other XR chest 2V* Transcribed By: PWS 04/15/22 1409 Ele[facility] [employer] Other XR chest 2V* Dictated By: Marisa Merlos MD 04/15/22 1407 [facility] [employer] Other XR chest 2V* Signed By: [facility] Other XR chest 2V* 04/15/22 140 [facility] [employer] Other CBC AUTO DIFFon 04-09-2022 BASO # 0.0 103/ul Normal 0.0-0.1 [facility] Comment on above: Performed By: #### C BC ####[facility] [address] [place], [place] [address]Dr. Jean Crow Basophils/100 WBC (Bld) 0.2 % Normal 0.2-2.0 [facility] Comment on above: Performed By: #### C BC ####[facility] [address] [place], [place] [address]Dr. Jean Crow EO # 0.0 103/ul Normal 0.0-0.7 [facility] Comment on above: Performed By: #### C BC ####[facility] [address] [place], [place] [address]Dr. Jean Crow Eosinophils/100 WBC (Bld) 0.0 % Critically low 0.9-7.0 [facility] Comment on above: Performed By: #### C BC ####[facility] [address] [place], [place] [address]Dr. Jean Crow Erythrocyte distribution width (RBC) [Ratio] 14.8 % Normal 11.0-15.0 [facility] Comment on above: Performed By: #### C BC ####[facility] [address] [place], [place] [address]Dr. Jean Crow Hematocrit (Bld) [Volume fraction] 39.6 % Normal 36.0-48.0 [facility] Comment on above: Performed By: #### C BC ####[facility] [address] [place] [id number]. Jean Crow Hemoglobin (Bld) [Mass/Vol] 12.6 g/dL Normal 12.0-16.0 [facility] Comment on above: Performed By: #### C BC ####[facility] [address] [place] [id number]. Jean Crow IG # 0.15 10e3/ul Critically high 0.00-0.03 [facility] Comment on above: Performed By: #### C BC ####[facility] [address] [place] [id number]. Jean Crow IG % 1.5 % Critically high 0.0-0.5 [facility] Comment on above: Performed By: #### C BC ####[facility] [address] [place] [address]Dr. Jean Crow LYMPH # 0.9 103/ul Critically low 1.2-3.8 [facility] Comment on above: Performed By: #### C BC ####[facility] [address] [place] [id number]. Jean Crow Lymphocytes/100 WBC (Bld) 9.7 % Critically low 20.5-60.0 [facility] Comment on above: Performed By: #### C BC ####[facility] [address] [place] [id number]. Jean Crow MANUAL DIFF REQ NO Normal The [facility] Comment on above: Performed By: #### C BC ####[facility] [address] [place] [id number]. Jean Crow MCH (RBC) [Entitic mass] 27.6 pg Normal 26.7-34.0 [facility] Comment on above: Performed By: #### C BC ####[facility] [address] [place] [id number]. Jean Crow MCHC (RBC) [Mass/Vol] 31.8 g/dL Normal 29.9-35.2 [facility] Comment on above: Performed By: #### C BC ####[facility] [address] [place] [phone]. Jean Crow MCV (RBC) [Entitic vol] 86.8 fL Normal 81.0-99.0 [facility] Comment on above: Performed By: #### C BC ####[facility] [address] [place] [phone]. Jean Crow MONO # 0.2 103/ul Critically low 0.3-0.8 [facility] Comment on above: Performed By: #### C BC ####[facility] [address] [place] [phone]. Jean Crow Monocytes/100 WBC (Bld) 2.1 % Normal 1.7-12.0 [facility] Comment on above: Performed By: #### C BC ####[facility] [address] [place], [place] [address]Dr. Jean Crow NEUT # 8.4 103/ul Critically high 1.4-6.5 [facility] Comment on above: Performed By: #### C BC ####[facility] [address] [place], [place] [address]Dr. Jean Crow Neutrophils/100 WBC (Bld) 86.5 % Critically high 43.0-75.0 [facility] Comment on above: Performed By: #### C BC ####[facility] [address] [place], [place] [address]Dr. Jean Crow Platelet mean volume (Bld) [Entitic vol] 9.5 fL Normal 9.5-13.5 [facility] Comment on above: Performed By: #### C BC ####[facility] [address] [place] [id number]. Jean Crow PLT 335 103/ul Normal 150-450 [facility] Comment on above: Performed By: #### C BC ####[facility] [address] [place] [phone]. Liliaazael Tristin RBC 4.56 106/ul Normal 4.20-5.40 [facility] Comment on above: Performed By: #### C BC ####[facility] [address] [place], [place] [address]. Jean Crow WBC 9.7 103/ul Normal 4.0-11.0 [facility] Comment on above: Performed By: #### C BC ####[facility] [address] [place], [place] [address]PzYury Liliaazael Crow CTA CHEST WO W CONon [...] NHUNG DONG Date: 2022-04-09 14:56 Normal [facility] D-DIMERon 04-09-2022 D-DIMER 0.78 mg/L FEU Critically high <=0.59 [facility] Comment on above: Performed By: #### C VDAGS #### [facility] [address] [place], [place] [address] Dr. Jean Crow D-DIMER COMMENTS SEE BELOW Normal [facility] Comment on above: Result Comment: Incr eases [...] hospitalization. Performed By: #### C VDAGS #### [facility] [address] [place] [address] Dr. Jean Crow PROF 14(COMP METB)on 022 Albumin [Mass/Vol] 3.7 g/dL Normal 3.4-5.0 [facility] Comment on above: Performed By: #### C VDAGS #### [facility] [address] [place] [address] Dr. Jean Crow Albumin/Globulin [Mass ratio] 1.0 {ratio} Normal [facility] Comment on above: Performed By: #### C VDAGS #### [facility] [address] [place] [address] Dr. Jean Crow ALP [Catalytic activity/Vol] 88 U/L Normal 46-116 [facility] Comment on above: Performed By: #### C VDAGS #### [facility] [address] [place] [address] Dr. Jean Crow ALT [Catalytic activity/Vol] 20 U/L Normal 14-59 [facility] Comment on above: Performed By: #### C VDAGS #### [facility] [address] [place] [address] Dr. Jean Crow Anion gap [Moles/Vol] 11.9 mmol/L Normal [facility] Comment on above: Performed By: #### C VDAGS #### [facility] [address] [place] [address] Dr. Jean Crow AST [Catalytic activity/Vol] 15 U/L Normal 15-37 [facility] Comment on above: Performed By: #### C VDAGS #### [facility] [address] [place] [address] Dr. Jean Crow Bilirubin [Mass/Vol] 0.5 mg/dL Normal 0.2-1.0 [facility] Comment on above: Performed By: #### C VDAGS #### [facility] [address] [place] [address] Dr. Jean Crow Calcium [Mass/Vol] 8.8 mg/dL Normal 8.5-10.1 [facility] Comment on above: Performed By: #### C VDAGS #### [facility] [address] [place] [address] Dr. Jean Crow Chloride [Moles/Vol] 103 mmol/L Normal 98-107 [facility] Comment on above: Performed By: #### C VDAGS #### [facility] [address] [place] [address] Dr. Jean Crow CO2 [Moles/Vol] 26.7 mmol/L Normal 21.0-32.0 [facility] Comment on above: Performed By: #### C VDAGS #### [facility] [address] [place] [address] Dr. Jean Crow Creatinine [Mass/Vol] 0.77 mg/dL Normal 0.55-1.02 [facility] Comment on above: Performed By: #### C VDAGS #### [facility] [address] [place] [address] Dr. Jean Crow EGFR-AF ARGENTINE >60 Normal >=60 [facility] Comment on above: Performed By: #### C VDAGS #### [facility] [address] [place] [address] Dr. Jean Crow EGFR-NON AF ARGENTINE >60 Normal >=60 [facility] Comment on above: Performed By: #### C VDAGS #### [facility] [address] [place] [address] Dr. Jean Crow Globulin (S) [Mass/Vol] 3.7 g/dL Normal [facility] Comment on above: Performed By: #### C VDAGS #### [facility] [address] [place] [address] Dr. Jean Crow Glucose [Mass/Vol] 149 mg/dL Critically high 74-106 [facility] Comment on above: Performed By: #### C VDAGS #### [facility] [address] [place] [address] Dr. Jean Crow Potassium [Moles/Vol] 3.6 mmol/L Normal 3.5-5.1 [facility] Comment on above: Performed By: #### C VDAGS #### [facility] [address] [place] [address] Dr. Jean Crow Protein [Mass/Vol] 7.4 g/dL Normal 6.4-8.2 [facility] Comment on above: Performed By: #### C VDAGS #### [facility] [address] [place] [address] Dr. Jean Crow Sodium [Moles/Vol] 138 mmol/L Normal 136-145 [facility] Comment on above: Performed By: #### C VDAGS #### [facility] [address] [place] [address] Dr. Jean Crow Urea nitrogen [Mass/Vol] 20.0 mg/dL Critically high 7.0-18.0 [facility] Comment on above: Performed By: #### C VDAGS #### [facility] [address] [place] [address] Dr. Jean Crow Urea nitrogen/Creatinine [Mass ratio] 26.0 mg/mg Normal [facility] Comment on above: Performed By: #### C VDAGS #### [facility] [address] [place] [address] Dr. Jean Crow TROPONIN, HIGH SENSITIVITYon 04-09-2022 HSTROP 9.0 pg/mL Normal 4.0-51.3 [facility] Comment on above: Result Comment: CUT- OFF POINTS HAVE BEEN ESTABLISHED BASED ON THE FOURTH UNIVERSAL DEFINITIONS OF MYOCARDIAL INFARCTION. THE UPPER REFERENCE LIMIT (URL) OF TROPONIN, DEFINED THE 99TH PERCENTILE OF cTnI DISTRIBUTION IN A REFERENCE POPULATION, HAS BEEN CONFIRMED THE DECISION THRESHOLD FOR CA DIAGNOSIS. Performed By: #### C VDAGS #### [facility] [address] [place] [address] Dr. Jean Crow XR CHEST 1 Von [...] NHUNG DONG Date: 2022-04-09 13:51 Normal [facility] SARS-CoV-2 (COVID-19) RNA NA A+probe Ql (Resp)on 04-05-2022 SARS-CoV-2 (COVID-19) RNA BRIAN+probe Ql (Unsp spec) Positive [employer] Other BASIC METABOLIC PANELon 12-30 Anion gap [Moles/Vol] 5 mmol/L Low [facility] Calcium [Mass/Vol] 8.1 mg/dL Low [facility] Chloride [Moles/Vol] 109 mmol/L High [facility] CO2 [Moles/Vol] 27 mmol/L [facility] Creatinine [Mass/Vol] 0.57 mg/dL [facility] GFR COMMENT Average GFR for 60-69 years old = 85. [facility] Comment on above: Chronic Kidney disea se, GFR = <60. Kidney failure, GFR = <15. The GFR estimate is not adjusted for extreme body surface area or acute process, nor has it been validated for women or ethnic groups other than and . GFR/1.73 sq M.predicted among blacks MDRD (S/P/Bld) [Vol rate/Area] 138 mL/min/{1.73_m2} ml/min/1.73sq.m [facility] GFR/1.73 sq M.predicted among non-blacks MDRD (S/P/Bld) [Vol rate/Area] 114 mL/min/{1.73_m2} ml/min/1.73sq.m [facility] Glucose post fast [Mass/Vol] 201 mg/dL High [facility] Comment on above: NORMAL <100 mg/dL PREDIABETES 101-126 mg/dL DIABETES 126 mg/dL or higher Interpretation and review of laboratory results Abnormal [facility] Potassium [Moles/Vol] 3.9 mmol/L [facility] Sodium [Moles/Vol] 141 mmol/L [facility] Urea nitrogen [Mass/Vol] 9 mg/dL [facility] CBC, EDIF, PLATELETon 2021 ABSOLUTE BASOPHIL COUNT 0.0 10*3/uL 0.0 - 0.2 10*3/uL [facility] Basophils/100 WBC (Bld) 0.1 % 0.0 - 2.0 % [facility] Differential cell count method Nom (Bld) AUTO DIFF % [facility] Eosinophils (Bld) [#/Vol] 0.00 10*3/uL 0.0 - 0.7 10*3/uL [facility] Eosinophils/100 WBC (Bld) 0.0 % 0.0 - 11.0 % [facility] Erythrocyte distribution width (RBC) [Ratio] 15.4 % High 11.5 - 14.5 % [facility] Hematocrit (Bld) [Volume fraction] 28.9 % Low 36.0 - 48.0 % [facility] Hemoglobin (Bld) [Mass/Vol] 9.4 g/dL Low [facility] Interpretation and review of laboratory results Abnormal [facility] Lymphocytes (Bld) [#/Vol] 0.90 10*3/uL Low 1.2 - 3.4 10*3/uL [facility] Lymphocytes/100 WBC (Bld) 8.1 % Low 20.0 - 55.0 % [facility] MCH (RBC) [Entitic mass] 29.3 pg 26.0 - 35.0 PG [facility] MCHC (RBC) [Mass/Vol] 32.7 g/dL [facility] MCV (RBC) [Entitic vol] 89.6 fL [facility] Monocytes (Bld) [#/Vol] 0.4 10*3/uL 0.0 - 0.7 10*3/uL [facility] Monocytes/100 WBC (Bld) 4.2 % 0.0 - 10.0 % [facility] Neutrophils (Bld) [#/Vol] 9.3 10*3/uL High 1.4 - 6.5 10*3/uL [facility] Neutrophils/100 WBC (Bld) 87.6 % High 37.0 - 75.0 % [facility] Platelet mean volume (Bld) [Entitic vol] 7.9 fL [facility] Platelets (Bld) [#/Vol] 262 10*3/uL 130.0 - 400.0 10*3/uL [facility] RBC (Bld) [#/Vol] 3.22 10*6/uL Low 4.0 - 5.4 10*6/u L [facility] WBC (Bld) [#/Vol] 10.6 10*3/uL 3.6 - 11.0 10*3/uL [facility] GLUCOSE (POC DEVICE)on 01-24 GLUCOSE, POINT OF CARE 119 [facility] Interpretation and review of laboratory results Abnormal [facility] Operator [phone] [facility] GLUCOSE, POINT OF CARE 169 [facility] Interpretation and review of laboratory results Abnormal [facility] Operator [id number] [facility] GLUCOSE (POC DEVICE)on 01-23 GLUCOSE, POINT OF CARE 196 [facility] Interpretation and review of laboratory results Abnormal [facility] Operator [phone] [facility] GLUCOSE, POINT OF CARE 132 [facility] Interpretation and review of laboratory results Abnormal [facility] Operator [phone] [facility] NOVEL CORONAVIRUS LAB 1 - NA SOPHARYNGEALon 01-23-2022 NARRATIVE -1 4 [facility] SARS-CoV-2 (COVID-19) RNA BRIAN+probe Ql (Unsp spec) Not detected NOT DETECTED [facility] Comment on above: Negative results do not [...] patient is critically ill or clinically deteriorating. [facility] REPEAT ABO/RH (D) TYPINGon 0 01-23-2022 ABO and Rh group Nom (Bld ) Positive [facility] SCREEN: MRSA ONLY, NARES (IS OLATION SCREEN)on 01-23-2022 MRSA isol Org specific cx Ql (Nose) Not detected NOT DETECTED [facility] STAPHYOCOCCUS AUREUS BY PCR Not detected NOT DETECTED [facility] XR Knee - right 2 Viewson [...] soft tissues. IMPRESSION IMPRESSION: Routine postoperative changes. [facility] Radiology Study observation (narrative) [facility] XR Knee - right 2 ViewsOrder ed By: Jade Wesley on 01-23-2022 [facility] Work Phone: CREATININEon 01-09-2022 Creatinine [Mass/Vol] 0.65 mg/dL Normal 0.55-1.02 [facility] Comment on above: Performed By: #### C VDAGS #### [facility] [address] [place] [address] Dr. Jean Crow EGFR-AF ARGENTINE >60 Normal >=60 [facility] Comment on above: Performed By: #### C VDAGS #### [facility] [address], [place] [address] Dr. Jean Crow EGFR-NON AF ARGENTINE >60 Normal >=60 [facility] Comment on above: Performed By: #### C VDAGS #### [facility] [address], [place] [address] Dr. Jean Crow MRI PITUITARY WO W [...] KARSON GARCIA Date: 2022-01-09 21:16 Normal [facility] XR SINUSES 3 VIEWS OR GREATE [...] by: NHUNG DONG Date: 2022-01-02 07:43 Normal [facility] XR CHEST 2 Von 12-20-2021 [...] JOSHUA ARZATE Date: 2021-12-20 14:10 Normal [facility] COVID Quick Testingon 2021 Result Negative [facility] Other Quick Fluon 12-15-2021 FLUAV Ab CF (S) [Titer] Negative [facility] Other FLUBV Ab CF (S) [Titer] Negative [facility] Other A1C HEMOGLOBINon 11-01-2021 HbA1c (Bld) [Mass fraction] 5.3 % [facility] Other Glucose - FINGER STICKon Glucose [Mass/Vol] 86 mg/dL [facility] Other HbA1c (Bld) [Mass fraction]o n 11-01-2021 A1C HEMOGLOBIN [facility] Other MICRO OTHER TESTSOrdered By: Ainsley Mcpherson on 10-07-2021 Fecal WBC Lactoferrin Positive *ABN* (10/07/21 9:00 AM) Invalid Interpretation Code Negative [facility] CHEMISTRYOrdered By: SYSTEM SYSTEM on [...] by RUTHIE BURRELL on 09/13/2021 1244 Normal [facility] [employer] XR wrist RT min 3V*on 2021 XR wrist RT min 3V* [facility] [employer] Other XR wrist RT min 3V* [facility] [employer] Other XR wrist RT min 3V* [address] [employer] Other XR wrist RT min 3V* [place] [address] [address] [employer] Other XR wrist RT min 3V* XRay Report Ritchie [employer] Other XR wrist RT min 3V* Signed [facility] Other XR wrist RT min 3V* Patient: Carolina Gutierrez MR#: [id number] [employer] [employer] Other XR wrist RT min 3V* : 1960 Acct:[id number] [facility] Other XR wrist RT min 3V* Age/Sex: 60 / F ADM Date: 08/28/21 [facility] Other XR wrist RT min 3V* Loc: XDUCLY [facility]: [facility] Other XR wrist RT min 3V* Attending Dr: Tonia Zavala [facility] [employer] Other XR wrist RT min 3V* Ordering Provider: TONIA ZAVALA [facility] [employer] Other XR wrist RT min 3V* Date of Service: 08/28/21 [facility] Other XR wrist RT min 3V* XR/XR wrist RT min 3V*: Injury of right wrist, initial encounter [facility] Other XR wrist RT min 3V* ([id number]) XR/XR shoulder LT min 2V*: Injury of left shoulder, initial encounter [facility] Other XR wrist RT min 3V* Copies to: TONIA ZAVALA [facility] [employer] Other XR wrist RT min 3V* LEFT SHOULDER - 3views right wrist 4 views. [facility] Other XR wrist RT min 3V* CLINICAL HISTORY: Fell 2 days ago and landed on right wrist and left shoulder. Pain and bruising [facility] Other XR wrist RT min 3V* palmar aspect of right wrist. [facility] Other XR wrist RT min 3V* COMPARISON: None [facility] Other XR wrist RT min 3V* FINDINGS: Left shoulder: Calcifications are seen projecting over the subacromial space and along [facility] Other XR wrist RT min 3V* the acromion. No acute bony process is seen. 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 Visualized left lung field is clear. [facility] Other XR wrist RT min 3V* Right wrist: No focal soft tissue abnormality. No acute bony process. [facility] Other XR wrist RT min 3V* XR/XR shoulder LT min 2V* [facility] Other XR wrist RT min 3V* IMPRESSION: [employer] Other XR wrist RT min 3V* 1. NO ACUTE BONY PROCESS. [facility] Other XR wrist RT min 3V* 2. DEGENERATIVE CHANGES OF THE GLENOHUMERAL JOINT WITH FLATTENING OF THE HUMERAL HEAD WITH [facility] Other XR wrist RT min 3V* UNDERLYING SCLEROSIS POSSIBLY REPRESENTING UNDERLYING AVASCULAR NECROSIS. [facility] Other XR wrist RT min 3V* 3. CALCIFICATIONS SEEN PROJECTING OVER THE SUBACROMIAL SPACE AND ALONG THE ACROMION WITHOUT DONOR [facility] Other XR wrist RT min 3V* SITE TO SUGGEST FRACTURE. 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 Nor [employer] Other XR wrist RT min 3V* 1. [facility] Other XR wrist RT min 3V* Impression dictated by: Bill Hutchison Jr., D.O.08/28/2021 6:05 PM [facility] Other XR wrist RT min 3V* Dictation Location: [address] [employer] Other XR wrist RT min 3V* Transcribed By: PWS 08/28/21 1805 [facility] Other XR wrist RT min 3V* Dictated By: Bill Hutchison Jr, DO 08/28/21 1744 [facility] Other XR wrist RT min 3V* Signed By: [facility] Other XR wrist RT min 3V* 08/28/21 1805 No rt [employer] Other A1C HEMOGLOBINon 04-05-2021 HbA1c (Bld) [Mass fraction] 6.5 % Eleva [employer] Other Glucose - FINGER STICKon Glucose [Mass/Vol] 129 mg/dL [facility] Other HbA1c (Bld) [Mass fraction]o n 04-05-2021 A1C HEMOGLOBIN [facility] Other Eric 03-01-2021 ALT [Catalytic activity/Vol] 18 U/L Normal 7 - 45 [facility] Comment on above: Result Comment: Bibi ents treated with Sulfasalazine may generate falsely decreased results for ALT. Performed By: #### A LT #### [address] [id number] Ana 03-01-2021 AST [Catalytic activity/Vol] 14 U/L Normal 9 - 39 [facility] Comment on above: Performed By: #### A ST #### [address] [id number] CBC AND DIFFERENTIALon 03-01 % AUTOMATED IMMATURE GRAN 3.3 % High 0.0 - 0.9 [facility] Comment on above: Result Comment: Nicole ture Granulocyte Count (IG) includes promyelocytes, myelocytes and metamyelocytes but does not include bands. Percent differential counts (%) should be interpreted in the context of the absolute cell counts (cells/L). Performed By: #### C BCDF #### [address] [id number] Basophils (Bld) [#/Vol] 0.05 10*3/uL Normal 0.00 - 0.10 [facility] Comment on above: Performed By: #### C BCDF #### [address] [id number] Basophils/100 WBC (Bld) 0.3 % Normal 0.0 - 2.0 [facility] Comment on above: Performed By: #### C BCDF #### [address] [id number] Eosinophils (Bld) [#/Vol] 0.08 10*3/uL Normal 0.00 - 0.70 [facility] Comment on above: Performed By: #### C BCDF #### [address] [id number] Eosinophils/100 WBC (Bld) 0.6 % Normal 0.0 - 6.0 [facility] Comment on above: Performed By: #### C BCDF #### [address] [id number] Erythrocyte distribution width (RBC) [Ratio] 17.3 % High 11.5 - 14.5 [facility] Comment on above: Performed By: #### C BCDF #### [address] [id number] Hematocrit (Bld) [Volume fraction] 42.9 % Normal 36.0 - 46.0 [facility] Comment on above: Performed By: #### C BCDF #### [address] [id number] Hemoglobin (Bld) [Mass/Vol] 12.8 g/dL Normal 12.0 - 16.0 [facility] Comment on above: Performed By: #### C BCDF #### [address] [id number] Lymphocytes (Bld) [#/Vol] 2.48 10*3/uL Normal 1.20 - 4.80 [facility] Comment on above: Performed By: #### C BCDF #### [address] [id number] Lymphocytes/100 WBC (Bld) 17.1 % Normal 13.0 - 44.0 [facility] Comment on above: Performed By: #### C BCDF #### [address] [id number] MCHC (RBC) [Mass/Vol] 29.8 g/dL Low 32.0 - 36.0 [facility] Comment on above: Performed By: #### C BCDF #### [address] [id number] MCV (RBC) [Entitic vol] 96 fL Normal 80 - 100 [facility] Comment on above: Performed By: #### C BCDF #### [address] [id number] Monocytes (Bld) [#/Vol] 0.68 10*3/uL Normal 0.10 - 1.00 [facility] Comment on above: Performed By: #### C BCDF #### [address] [id number] Monocytes/100 WBC (Bld) 4.7 % Normal 2.0 - 10.0 [facility] Comment on above: Performed By: #### C BCDF #### [address] [id number] Neutrophils (Bld) [#/Vol] 10.76 10*3/uL High 1.20 - 7.70 [facility] Comment on above: Performed By: #### C BCDF #### [address] [id number] Neutrophils/100 WBC (Bld) 74.0 % Normal 40.0 - 80.0 [facility] Comment on above: Performed By: #### C BCDF #### [address] [id number] Platelets (Bld) [#/Vol] 319 10*3/uL Normal 150 - 450 [facility] Comment on above: Performed By: #### C BCDF #### [address] [id number] RBC 4.49 x10E12/L Normal 4.00 - 5.20 [facility] Comment on above: Performed By: #### C BCDF #### [address] [id number] WBC (Bld) [#/Vol] 14.5 10*3/uL High 4.4 - 11.3 [facility] Comment on above: Performed By: #### C BCDF #### [address] [id number] CREATININEon 03-01-2021 Creatinine [Mass/Vol] 0.81 mg/dL Normal 0.50 - 1.05 [facility] Comment on above: Performed By: #### C REAT #### [address] [id number] GFR- AM. >60 Normal >60 [facility] Comment on above: Result Comment: CALC ULATIONS OF ESTIMATED GFR ARE PERFORMED USING THE MDRD STUDY EQUATION FOR THE IDMS-TRACEABLE CREATININE METHODS. CLIN CHEM 2007;53:766-72 Performed By: #### C REAT #### [address] [id number] GFR-NON AM. >60 Normal >60 [facility] Comment on above: Performed By: #### C REAT #### [address] [id number] SEDIMENTATION RATE, ERYTHROC YTEon 03-01-2021 SEDIMENTATION RATE, ERYTHROCYTE 24 mm/h High 0 - 20 [facility] Comment on above: Performed By: #### E SRWS #### [address] [id number] Lipid Panelon 2020 Cholesterol [Mass/Vol] 191 mg/dL [employer] [facility] [employer] Other Cholesterol in HDL [Mass/Vol] 40 mg/dL [facility] Other Cholesterol in LDL Elph Qn 129.8 [facility] Other Cholesterol.total/Ch olesterol in HDL [Mass ratio] 4.8 {ratio} [facility] Other Lipid Panel 106 [facility] Other Lipid Panel 21.2 [facility] Other C-REACTIVE PROTEINon 021 C-REACTIVE PROTEIN 8.32 mg/dL Abnormal [facility] Comment on above: Result Comment: REF VALUE < 1.00 Performed By: #### C RP #### [address] [id number] SEDIMENTATION RATE, ERYTHROC YTEon 08-26-2020 SEDIMENTATION RATE, ERYTHROCYTE 38 mm/h High 0 - 20 [facility] Comment on above: Performed By: #### E SRWS #### [address] [id number] URIC ACIDon 08-26-2020 Urate [Mass/Vol] 2.4 mg/dL Normal 2.3 - 6.7 [facility] Comment on above: Result Comment: Carmella puncture immediately after or during the administration of Metamizole may lead to falsely low results. Testing should be performed immediately prior to Metamizole dosing. Performed By: #### U EMILY #### [address] [id number] POC Glucoseon 05-16-2017 Glucose mass conc 81 mg/dL Invalid Interpretation Code [facility] Work Phone: Interpretation and review of laboratory results Normal Invalid Interpretation Code [facility] Work Phone: Glucose mass conc 81 mg/dL Invalid Interpretation Code 65 - 99 mg/dL [facility] Interpretation and review of laboratory results Normal Invalid Interpretation Code [facility] NM MYOCARDIAL PERFUSION MULT I SPECTon 05-14-2017 NM MYOCARDIAL PERFUSION MULTI SPECT Nuclear Report Pati ent: MATT Manning Med Rec#: [id number] (Age): 1960(56y)Accou nt#: [id number] Height: 149.9(cm)/58(inStudy Date: 05/14/2017 Weight: 90.9(kg)/200(lbRoom# : [...] Other: nausea Medications :- see [facility] Exercise Protocol: Fair Total [...] SatMay 14, 2017 11:03:52 AM EST Normal [facility] Comment on above: Order Comment: Reaso n for exam?:pre op, abn ekgInjury/Trauma or Illness?:Illness/OtherHow long have you had these symptoms (acute/chronic)?:UnknownType of Exam?:UnknownAdditional signs and symptoms?:dizziness,nausea,family hx,dm NM Myocardial Perfusion Mult iple SPECTon 05-14-2017 NM Myocardial Perfusion Multiple SPECT Nuclear Report Patient: MATT Manning Med Rec#: [id number] (Age): 1960(56y) Height: 149.9(cm)/58(in Study Date: 05/14/2017 Weight: 90.9(kg)/200(lb Room#: BSA: 1.85 Type: Outpatient Loc: [facility] Sex: F Indications: -Abnormal ECG -Pre-op [...] by: Silvana Collazo M.D. Invalid Interpretation Code [facility] NM Myocardial Perfusion Multiple SPECT Interface, Rad In Heartlab Xper [facility] - 05/14/2017 11:05 AM EST Nuclear Report Patient: MATT Manning Med Rec#: [id number] (Age): 1960(56y) Height: 149.9(cm)/58(in Study Date: 05/14/2017 [...] Other: nausea Medications : - see med [facility] Exercise Protocol: Fair Total [...] by: Silvana Collazo M.D. Invalid Interpretation Code [facility] Basic Metabolic Panelon 11-1 3-2017 Anion gap 8 mmol/L Low 10 - 20 mmol/L [facility] Bicarbonate (HCO3) 32 mmol/L Invalid Interpretation Code 22 - 34 mmol/L [facility] BUN/Creatinine Ratio 25.0 mg/mg High 10.0 - 20.0 [facility] Calcium 9.4 mg/dL Invalid Interpretation Code 8.4 - 10.2 mg/dL [facility] Chloride 103 mmol/L Invalid Interpretation Code 98 - 108 mmol/L [facility] Creatinine 0.64 mg/dL Invalid Interpretation Code 0.4 - 1.1 mg/dL [facility] eGFR (non-black) The eGFR should be used for monitoring renal function only and not for medication dosing. Invalid Interpretation Code [facility] eGFR (non-black) 99 mL/min/{1.73_m2} Invalid Interpretation Code >=60 [facility] Glucose mass conc 96 mg/dL Invalid Interpretation Code 65 - 99 mg/dL [facility] Interpretation and review of laboratory results Abnormal Invalid Interpretation Code [facility] Potassium molar conc 4.1 mmol/L Invalid Interpretation Code 3.5 - 5.1 mmol/L [facility] Sodium 139 mmol/L Invalid Interpretation Code 135 - 145 mmol/L [facility] Urea nitrogen 16 mg/dL Invalid Interpretation Code 8 - 25 mg/dL [facility] CBC Auto Differentialon 05-01 Basophils Auto #/vol (Bld) 0.03 K/mcL Invalid Interpretation Code 0.00 - 0.30 [facility] Basophils/100 WBC Auto (Bld) 0.4 % Invalid Interpretation Code [facility] Eosinophils 0.20 K/mcL Invalid Interpretation Code 0.00 - 0.50 [facility] Eosinophils/100 leukocytes 2.5 % Invalid Interpretation Code [facility] Erythrocyte distribution width Auto Entitic volume (RBC) 14.5 % Invalid Interpretation Code 11.6 - 14.8 % [facility] Erythrocytes (RBC) 4.77 M/mcL Invalid Interpretation Code 4.00 - 5.20 [facility] Hematocrit (HCT) 42.3 % Invalid Interpretation Code 36 - 46 % [facility] Hemoglobin mass conc (Bld) 13.9 g/dL Invalid Interpretation Code 12 - 16 g/dL [facility] Lymphocytes 2.46 K/mcL Invalid Interpretation Code 0.90 - 4.00 [facility] Lymphocytes/100 leukocytes 31.1 % Invalid Interpretation Code [facility] MCH 29.1 pg Invalid Interpretation Code 26 - 34 pg [facility] MCHC mass conc (RBC) 32.9 g/dL Invalid Interpretation Code 31 - 37 g/dL [facility] MCV 88.7 fL Invalid Interpretation Code 80 - 100 fL [facility] Monocytes 0.39 K/mcL Invalid Interpretation Code 0.30 - 0.90 [facility] Monocytes/100 leukocytes 4.9 % Invalid Interpretation Code [facility] Neutrophils 4.82 K/mcL Invalid Interpretation Code 1.70 - 7.00 [facility] Neutrophils/100 WBC Auto (Bld) 61.1 % Invalid Interpretation Code [facility] Nucleated erythrocytes 0.00 K/mcL Invalid Interpretation Code 0.00 - 0.00 [facility] Nucleated erythrocytes/100 erythrocytes 0.0 % Invalid Interpretation Code [facility] Platelet mean volume (PMV) 10.0 fL Invalid Interpretation Code 9 - 15.5 fL [facility] Platelets 219 K/mcL Invalid Interpretation Code 150 - 400 [facility] WBC (Leukocytes) 7.90 K/mcL Invalid Interpretation Code 4.50 - 11.00 [facility] CBC and Differentialon 05-13 Creatinine The following orders were created for panel order CBC and Differential. Procedure Abnormality Status --------- ------ CBC Auto Differential[[id number]] Final result Please view results for these tests on the individual orders. Invalid Interpretation Code [facility] Work Phone: ECG 12 Leadon 05-13-2017 Atrial Rate 80 BPM Invalid Interpretation Code [id number] PAT P [place] 50 degrees Invalid Interpretation Code [id number] PAT P-R Interval 152 ms Invalid Interpretation Code [id number] PAT Q-T Interval 376 ms Invalid Interpretation Code DGL495 PAT QRS Duration 88 ms Invalid Interpretation Code HGQ595 PAT QTC Calculation (Bezet) 433 ms Invalid Interpretation Code [id number] PAT R [place] 3 degrees Invalid Interpretation Code [id number] PAT T [place] 165 degrees Invalid Interpretation Code [id number] PAT Ventricular Rate 80 BPM Invalid Interpretation Code [id number] PAT ECG 12 Lead Normal sinus rhythm Possible Left atrial enlargement T wave abnormality, consider anterolateral ischemia Abnormal ECG No previous ECGs available Confirmed by ROSA LAZO D.O. ([id number]) on 05/13/2017 11:26:14 AM Invalid Interpretation Code IEL038 PAT Large Joint Arthro/Inj: L sh oulder joint [facility] Vital Signs Date Time Vital Sign Value Performing Clinician Facility 02-15-2025 07:40-0400 Body mass index (BMI) [Ratio] 38.55 kg/m2 Stevo Neff MD Work Phone: [facility] 02-15-2025 07:40-0400 Body weight 78 kg Stevo Neff MD Work Phone: [facility] 02-15-2025 07:40-0400 Diastolic blood pressure 58 mm[Hg] Stevo Neff MD Work Phone: [facility] 02-15-2025 07:40-0400 Heart rate 85 /min Stevo Neff MD Work Phone: [facility] 02-15-2025 07:40-0400 Systolic blood pressure 101 mm[Hg] Stevo Neff MD Work Phone: [facility] 02-01-2025 11:50-0400 Body mass index (BMI) [Ratio] 34.54 kg/m2 Adam Hernandez MD Work Phone: [facility] 02-01-2025 11:50-0400 Body weight 77.56 kg Adam Hernandez MD Work Phone: [facility] 12-20-2024 12:24-0400 Body height 142.24 cm Santino Moran MD Work Phone: [facility] 12-20-2024 12:24-0400 Body mass index (BMI) [Ratio] 38.1 kg/m2 Santino Moran MD Work Phone: [facility] 12-20-2024 12:24-0400 Body temperature 98.7 [degF] Santino Moran MD Work Phone: [facility] 12-20-2024 12:24-0400 Body weight 77.16 kg Santino Moran MD Work Phone: [facility] 12-20-2024 12:24-0400 Diastolic blood pressure 80 mm[Hg] Santino Moran MD Work Phone: [facility] 12-20-2024 12:24-0400 Heart rate 75 /min Santino Moran MD Work Phone: [facility] 12-20-2024 12:24-0400 Respiratory rate 18 /min Santino Moran MD Work Phone: [facility] 12-20-2024 12:24-0400 SaO2% (BldA) [Mass fraction] 97 % Santino Moran MD Work Phone: [facility] 12-20-2024 12:24-0400 Systolic blood pressure 120 mm[Hg] Santino Moran MD Work Phone: [facility] 12-08-2024 09:32-0400 Body height 142.24 cm Santino Moran MD Work Phone: [facility] 12-08-2024 09:32-0400 Body mass index (BMI) [Ratio] 38.9 kg/m2 Santino Moran MD Work Phone: [facility] 12-08-2024 09:32-0400 Body temperature 98 [degF] Santino Moran MD Work Phone: [facility] 12-08-2024 09:32-0400 Body weight 78.92 kg Santino Moran MD Work Phone: [facility] 12-08-2024 09:32-0400 Diastolic blood pressure 74 mm[Hg] Santino Moran MD Work Phone: [facility] 12-08-2024 09:32-0400 Heart rate 76 /min Santino Moran MD Work Phone: [facility] 12-08-2024 09:32-0400 Respiratory rate 18 /min Santino Moran MD Work Phone: [facility] 12-08-2024 09:32-0400 SaO2% (BldA) [Mass fraction] 95 % Santino Moran MD Work Phone: [facility] 12-08-2024 09:32-0400 Systolic blood pressure 127 mm[Hg] Santino Moran MD Work Phone: [facility] 11-20-2024 16:07-0400 Body height 142.24 cm Santino Moran MD Work Phone: [facility] 11-20-2024 16:07-0400 Body mass index (BMI) [Ratio] 41.7 kg/m2 Santino Moran MD Work Phone: [facility] 11-20-2024 16:07-0400 Body temperature 98.4 [degF] Santino Moran MD Work Phone: [facility] 11-20-2024 16:07-0400 Body weight 84.36 kg Santino Moran MD Work Phone: [facility] 11-20-2024 16:07-0400 Diastolic blood pressure 62 mm[Hg] Santino Moran MD Work Phone: [facility] 11-20-2024 16:07-0400 Heart rate 61 /min Santino Moran MD Work Phone: [facility] 11-20-2024 16:07-0400 Respiratory rate 18 /min Santino Moran MD Work Phone: [facility] 11-20-2024 16:07-0400 SaO2% (BldA) [Mass fraction] 97 % Santino Moran MD Work Phone: [facility] 11-20-2024 16:07-0400 Systolic blood pressure 138 mm[Hg] Santino Moran MD Work Phone: [facility] 11-11-2024 15:23-0400 Blood Pressure Location [facility] 11-11-2024 15:23-0400 Diastolic blood pressure 60 mm[Hg] [facility] 11-11-2024 15:23-0400 Heart rate 75 /min [facility] 11-11-2024 15:23-0400 Respiratory rate 16 /min [facility] 11-11-2024 15:23-0400 SaO2% (BldA) [Mass fraction] 96 % [facility] 11-11-2024 15:23-0400 Systolic blood pressure 120 mm[Hg] [facility] 09-28-2024 13:41-0400 Blood Pressure Location [facility] 09-28-2024 13:41-0400 Diastolic blood pressure 68 mm[Hg] [facility] 09-28-2024 13:41-0400 Heart rate 90 /min [facility] 09-28-2024 13:41-0400 Respiratory rate 16 /min [facility] 09-28-2024 13:41-0400 SaO2% (BldA) [Mass fraction] 98 % [facility] 09-28-2024 13:41-0400 Systolic blood pressure 124 mm[Hg] [facility] 08-31-2024 10:35-0500 Body mass index (BMI) [Ratio] 36.36 kg/m2 Adam Hernandez MD Work Phone: [facility] 08-31-2024 10:35-0500 Body weight 81.65 kg Adam Hernandez MD Work Phone: [facility] 08-23-2024 14:27-0500 Blood Pressure Location Oswald Curry [facility] 08-23-2024 14:27-0500 Body temperature 98.06 [degF] Oswald Curry [facility] 08-23-2024 14:27-0500 Diastolic blood pressure 90 mm[Hg] Oswald Curry [facility] 08-23-2024 14:27-0500 Heart rate 81 /min Oswald Curry [facility] 08-23-2024 14:27-0500 Respiratory rate 24 /min Oswald Curry [facility] 08-23-2024 14:27-0500 Systolic blood pressure 120 mm[Hg] Oswald Curry [facility] 08-09-2024 11:52-0500 Blood Pressure Location Marcelle Bernal [facility] 08-09-2024 11:52-0500 Body temperature 98.42 [degF] Marcelle Moraimaer [facility] 08-09-2024 11:52-0500 Diastolic blood pressure 74 mm[Hg] Marcelle Moraimaer [facility] 08-09-2024 11:52-0500 Heart rate 80 /min Marcelle Moraimaer [facility] 08-09-2024 11:52-0500 Respiratory rate 18 /min Marcelle Moraimaer [facility] 08-09-2024 11:52-0500 SaO2% (BldA) [Mass fraction] 94 % Marcelle Bordner [facility] 08-09-2024 11:52-0500 Systolic blood pressure 126 mm[Hg] Marcelle Moraimaer [facility] 06-23-2024 08:01-0500 Blood Pressure Location Oswald Curry [facility] 06-23-2024 08:01-0500 Diastolic blood pressure 82 mm[Hg] Oswald Curry [facility] 06-23-2024 08:01-0500 Heart rate 98 /min Oswald Curry [facility] 06-23-2024 08:01-0500 Respiratory rate 20 /min Oswald Curry [facility] 06-23-2024 08:01-0500 SaO2% (BldA) [Mass fraction] 99 % Oswald Curry [facility] 06-23-2024 08:01-0500 Systolic blood pressure 140 mm[Hg] Oswald Curry [facility] 06-15-2024 13:07-0500 Body mass index (BMI) [Ratio] 41.12 kg/m2 Erik Alejandro MD Work Phone: [facility] 06-15-2024 13:07-0500 Body temperature 98.1 [degF] Erik Alejandro MD Work Phone: [facility] 06-15-2024 13:07-0500 Body weight 83.2 kg Erik Alejandro MD Work Phone: [facility] 06-15-2024 13:07-0500 Diastolic blood pressure 79 mm[Hg] Erik Alejandro MD Work Phone: [facility] 06-15-2024 13:07-0500 Heart rate 77 /min Erik Alejandro MD Work Phone: [facility] 06-15-2024 13:07-0500 Respiratory rate 18 /min Erik Alejandro MD Work Phone: [facility] 06-15-2024 13:07-0500 SaO2% (BldA) [Mass fraction] 97 % Erik Alejandro MD Work Phone: [facility] 06-15-2024 13:07-0500 Systolic blood pressure 118 mm[Hg] Erik Alejandro MD Work Phone: [address]04-2024 13:41-0500 Blood Pressure Location Mohamad Mouchli [facility] 05-04-2024 13:41-0500 Diastolic blood pressure 74 mm[Hg] Mohamad Mouchli [facility] 05-04-2024 13:41-0500 Heart rate 74 /min Mohamad Mouchli [facility] 05-04-2024 13:41-0500 Respiratory rate 16 /min Mohamad Mouchli [facility] 05-04-2024 13:41-0500 Systolic blood pressure 135 mm[Hg] Mohamad Mouchli [facility] 03-30-2024 15:42-0400 Body height 142.2 cm Pacc 2 Work Phone: [facility] 03-30-2024 15:42-0400 Body mass index (BMI) [Ratio] 42.31 kg/m2 Pacc 2 Work Phone: [facility] 03-30-2024 15:42-0400 Body temperature 98.01 [degF] Pacc 2 Work Phone: [facility] 03-30-2024 15:42-0400 Body weight 85.59 kg Pacc 2 Work Phone: [facility] 03-30-2024 15:42-0400 Diastolic blood pressure 74 mm[Hg] Pacc 2 Work Phone: [facility] 03-30-2024 15:42-0400 Heart rate 76 /min Pacc 2 Work Phone: [facility] 03-30-2024 15:42-0400 Respiratory rate 16 /min Pacc 2 Work Phone: [facility] 03-30-2024 15:42-0400 SaO2% (BldA) [Mass fraction] 97 % Pac 2 Work Phone: [facility] 03-30-2024 15:42-0400 Systolic blood pressure 119 mm[Hg] Pac 2 Work Phone: [facility] 03-25-2024 15:42-0400 Body mass index (BMI) [Ratio] 36.96 kg/m2 Adam Hernandez MD Work Phone: [facility] 03-25-2024 15:42-0400 Body weight 83.01 kg Adam Hernandez MD Work Phone: [facility] 03-23-2024 14:02-0400 Blood Pressure Location Oswald Curry [facility] 03-23-2024 14:02-0400 Diastolic blood pressure 80 mm[Hg] Oswald Curry [facility] 03-23-2024 14:02-0400 Heart rate 74 /min Oswald Curry [facility] 03-23-2024 14:02-0400 Respiratory rate 18 /min Oswald Curry [facility] 03-23-2024 14:02-0400 Systolic blood pressure 130 mm[Hg] Oswald Curry [facility] 03-13-2024 08:09-0400 Body height 149.9 cm Louis Cortez DO Work Phone: [facility] 03-13-2024 08:09-0400 Body mass index (BMI) [Ratio] 38.38 kg/m2 Louis Cortez DO Work Phone: [facility] 03-13-2024 08:09-0400 Body weight 86.18 kg Louis Cortez DO Work Phone: [facility] 03-11-2024 15:36-0400 Body mass index (BMI) [Ratio] 38.38 kg/m2 Adam Hernandez MD Work Phone: [facility] 03-11-2024 15:36-0400 Body weight 86.18 kg Adam Hernandez MD Work Phone: [facility] 02-06-2024 15:31-0400 Blood Pressure Location Oswald Curry [facility] 02-06-2024 15:31-0400 Diastolic blood pressure 70 mm[Hg] Oswald Curry [facility] 02-06-2024 15:31-0400 Heart rate 95 /min Oswald Curry [facility] 02-06-2024 15:31-0400 Respiratory rate 18 /min Oswald Curry [facility] 02-06-2024 15:31-0400 SaO2% (BldA) [Mass fraction] 92 % Oswald Curry [facility] 02-06-2024 15:31-0400 Systolic blood pressure 110 mm[Hg] Oswald Curry [facility] 01-27-2024 15:14-0400 Blood Pressure Location Albaro Baltazar [facility] 01-27-2024 15:14-0400 Body temperature 98.24 [degF] Albaro Baltazar [facility] 01-27-2024 15:14-0400 Diastolic blood pressure 82 mm[Hg] Albaro Baltazar [facility] 01-27-2024 15:14-0400 Heart rate 112 /min Albaro Baltazar [facility] 01-27-2024 15:14-0400 Respiratory rate 18 /min Albaro Baltazar [facility] 01-27-2024 15:14-0400 SaO2% (BldA) [Mass fraction] 96 % [facility]baro [facility]zar [facility] 01-27-2024 15:14-0400 Systolic blood pressure 122 mm[Hg] Albaro Baltazar [facility] 01-24-2024 08:54-0400 Respiratory rate 16 /min Ronobir ISAAC [facility] 01-24-2024 08:49-0400 Heart rate 85 /min Ronobir ISAAC [facility] 01-24-2024 08:49-0400 Respiratory rate 16 /min Ronobir ISAAC [facility] 01-24-2024 08:49-0400 SaO2% (BldA) [Mass fraction] 94 % Ronobir ISAAC [facility] 01-24-2024 08:17-0400 Heart rate 85 /min Ronobir ISAAC [facility] 01-24-2024 08:17-0400 SaO2% (BldA) [Mass fraction] 94 % Ronobir ISAAC [facility] 01-24-2024 08:15-0400 Diastolic blood pressure 71 mm[Hg] Ronobir ISAAC [facility] 01-24-2024 08:15-0400 Mean blood pressure 92 mm[Hg] Ronobir ISAAC [facility] 01-24-2024 08:15-0400 Systolic blood pressure 134 mm[Hg] Ronobir ISAAC [facility] 01-24-2024 08:14-0400 Body temperature 97.52 [degF] Ronobir ISAAC [facility] 01-24-2024 06:30-0400 Hourly Rounding Ronobir ISAAC [facility] 01-24-2024 06:30-0400 Promise to Return Ronobir ISAAC [facility] 01-24-2024 05:42-0400 Hourly Rounding Ronobir ISAAC [facility] 01-24-2024 05:42-0400 Promise to Return Ronobir ISAAC [facility] 01-24-2024 04:44-0400 Hourly Rounding Ronobir ISAAC [facility] 01-24-2024 04:44-0400 Promise to Return Ronobir ISAAC [facility] 01-24-2024 00:00-0400 Diastolic blood pressure 80 mm[Hg] Ronobir ISAAC [facility] 01-24-2024 00:00-0400 Heart rate 98 /min Ronobir ISAAC [facility] 01-24-2024 00:00-0400 Respiratory rate 18 /min Ronobir ISAAC [facility] 01-24-2024 00:00-0400 SaO2% (BldA) [Mass fraction] 96 % Ronobir ISAAC [facility] 01-24-2024 00:00-0400 Systolic blood pressure 129 mm[Hg] Ronobir ISAAC [facility] 01-23-2024 20:00-0400 Body temperature 98.06 [degF] Ronobir ISAAC [facility] 01-23-2024 19:59-0400 Blood Pressure Location Ronobir ISAAC [facility] 01-23-2024 19:59-0400 Diastolic blood pressure 75 mm[Hg] Ronobir ISAAC [facility] 01-23-2024 19:59-0400 Mean blood pressure 90 mm[Hg] Ronobir ISAAC [facility] 01-23-2024 19:59-0400 Systolic blood pressure 119 mm[Hg] Ronobir ISAAC [facility] 01-23-2024 15:25-0400 Mean blood pressure 81 mm[Hg] Ronobir ISAAC [facility] 01-23-2024 15:25-0400 Body temperature 98.42 [degF] Ronobir ISAAC [facility] 01-23-2024 11:00-0400 Body temperature 98.24 [degF] Ronobir ISAAC [facility] 01-23-2024 11:00-0400 gluc 137 mg/dL Ronobir ISAAC [facility] 01-23-2024 11:00-0400 Heart rate 106 /min Ronobir ISAAC [facility] 01-23-2024 07:35-0400 Body temperature 97.52 [degF] Ronobir ISAAC [facility] 01-23-2024 07:35-0400 gluc 125 mg/dL Ronobir ISAAC [facility] 01-23-2024 07:35-0400 Heart rate 108 /min Ronobir ISAAC [facility] 01-23-2024 00:00-0400 Blood Pressure Location Ronobir ISAAC [facility] 01-21-2024 16:03-0400 Mean blood pressure 85 mm[Hg] Ronobir ISAAC [facility] 01-21-2024 16:03-0400 Respiratory rate 18 /min Ronobir ISAAC [facility] 01-21-2024 03:12-0400 Heart rate 72 /min Ronobir ISAAC [facility] 01-21-2024 01:58-0400 Mean blood pressure 83 mm[Hg] Ronobir ISAAC [facility] 01-21-2024 01:58-0400 Respiratory rate 20 /min Ronobir ISAAC [facility] 01-21-2024 01:35-0400 Mean blood pressure 89 mm[Hg] Ronobir ISAAC [facility] 01-21-2024 01:35-0400 Respiratory rate 20 /min Ronobir ISAAC [facility] 01-11-2024 10:00-0400 Hourly Rounding Lalo Oliver [facility] 01-11-2024 10:00-0400 Promise to Return Lalo Oliver [facility] 01-11-2024 09:00-0400 Hourly Rounding Lalo Oliver [facility] 01-11-2024 09:00-0400 Promise to Return Lalo Oliver [facility] 01-11-2024 08:13-0400 Hourly Rounding Lalo Oliver [facility] 01-11-2024 08:13-0400 Promise to Return Lalo Oliver [facility] 01-11-2024 08:13-0400 SaO2% (BldA) [Mass fraction] 96 % Lalo Oliver [facility] 01-11-2024 08:08-0400 Heart rate 94 /min Lalo Oliver [facility] 01-11-2024 08:08-0400 Respiratory rate 18 /min Lalo Lindocker [facility] 01-11-2024 08:08-0400 SaO2% (BldA) [Mass fraction] 96 % Lalo Oliver [facility] 01-11-2024 07:56-0400 Heart rate 88 /min Lalo Oliver [facility] 01-11-2024 07:56-0400 Respiratory rate 18 /min Lalo Oliver [facility] 01-11-2024 07:56-0400 SaO2% (BldA) [Mass fraction] 94 % Lalo Oliver [facility] 01-11-2024 06:55-0400 Body temperature 98.6 [degF] Lalo Oliver [facility] 01-11-2024 06:55-0400 Diastolic blood pressure 55 mm[Hg] Lalo Lindocker [facility] 01-11-2024 06:55-0400 Heart rate 89 /min Lalo Hernandezer [facility] 01-11-2024 06:55-0400 Mean blood pressure 83 mm[Hg] Lalo Oliver [facility] 01-11-2024 06:55-0400 Systolic blood pressure 138 mm[Hg] Lalo Oliver [facility] 01-11-2024 01:14-0400 Body temperature 97.52 [degF] Lalo Oliver [facility] 01-11-2024 01:14-0400 Diastolic blood pressure 66 mm[Hg] Lalo Hernandezer [facility] 01-11-2024 01:14-0400 Respiratory rate 16 /min Lalo Hernandezer [facility] 01-11-2024 01:14-0400 Systolic blood pressure 149 mm[Hg] Lalo Hernandezer [facility] 01-10-2024 20:03-0400 Body temperature 98.06 [degF] Lalo Hernandezer [facility] 01-10-2024 20:03-0400 Diastolic blood pressure 68 mm[Hg] Lalo Boyd [facility] 01-10-2024 20:03-0400 Respiratory rate 16 /min Lalo Boyd [facility] 01-10-2024 20:03-0400 Systolic blood pressure 111 mm[Hg] Lalo Boyd [facility] 01-10-2024 15:52-0400 Mean blood pressure 88 mm[Hg] Lalo Boyd [facility] 01-10-2024 15:51-0400 Body temperature 97.7 [degF] Lalo Boyd [facility] 01-10-2024 11:34-0400 Mean blood pressure 86 mm[Hg] Lalo Hernandezer [facility] 01-10-2024 06:47-0400 Mean blood pressure 86 mm[Hg] Lalo Hernandezer [facility] 01-10-2024 06:00-0400 Blood Pressure Location Lalo Hernandezer [facility] 01-10-2024 00:00-0400 Body temperature 97.7 [degF] Lalo Hernandezer [facility] 01-10-2024 00:00-0400 Mean blood pressure 90 mm[Hg] Lalo Hernandezer [facility] 01-09-2024 11:00-0400 Body temperature 99.14 [degF] Lalo Hernandezer [facility] 01-09-2024 07:52-0400 Heart rate 103 /min Lalo Hernandezer [facility] 01-09-2024 07:30-0400 Blood Pressure Location Lalo Hernandezer [facility] 01-09-2024 00:00-0400 Mean blood pressure 85 mm[Hg] Lalo Hernandezer [facility] 01-08-2024 11:00-0400 Heart rate 111 /min Lalo Hernandezer [facility] 01-08-2024 08:30-0400 Heart rate 91 /min Lalo Lindocker [facility] 01-07-2024 14:39-0400 Hourly Rounding Andrea MARISOL [facility] 01-07-2024 14:39-0400 Promise to Return Andrea MARISOL [facility] 01-07-2024 13:00-0400 Hourly Rounding Andrea MARISOL [facility] 01-07-2024 13:00-0400 Promise to Return Andrea MARISOL [facility] 01-07-2024 12:00-0400 Hourly Rounding Andrea MARISOL [facility] 01-07-2024 12:00-0400 Promise to Return Andrea MARISOL [facility] 01-07-2024 11:54-0400 Respiratory rate 16 /min Andrea MARISOL [facility] 01-07-2024 11:50-0400 Respiratory rate 16 /min Andreanuno QUESADASLIN [facility] 01-07-2024 10:39-0400 Heart rate 103 /min Andreanuno QUESADASLIN [facility] 01-07-2024 10:39-0400 SaO2% (BldA) [Mass fraction] 93 % Andreanuno QUESADASLIN [facility] 01-07-2024 10:39-0400 Body temperature 97.88 [degF] Andreanuno QUESADASLIN [facility] 01-07-2024 10:39-0400 Diastolic blood pressure 82 mm[Hg] Andreanuno QUESADASLIN [facility] 01-07-2024 10:39-0400 Mean blood pressure 97 mm[Hg] Andreanuno QUESADASLIN [facility] 01-07-2024 10:39-0400 Systolic blood pressure 127 mm[Hg] Andreanuno QUESADASLIN [facility] 01-07-2024 08:21-0400 Heart rate 84 /min Andreanuno QUESADASLIN [facility] 01-07-2024 08:21-0400 Respiratory rate 16 /min Andrea MARISOL [facility] 01-07-2024 08:14-0400 Heart rate 85 /min Andrea MARISOL [facility] 01-07-2024 08:14-0400 SaO2% (BldA) [Mass fraction] 96 % Andrea MARISOL [facility] 01-07-2024 07:00-0400 Diastolic blood pressure 97 mm[Hg] Andrea MARISOL [facility] 01-07-2024 07:00-0400 SaO2% (BldA) [Mass fraction] 94 % Andrea MARISOL [facility] 01-07-2024 07:00-0400 Systolic blood pressure 155 mm[Hg] Andrea MARISOL [facility] 01-07-2024 00:42-0400 Body temperature 98.06 [degF] Andrea MARISOL [facility] 01-07-2024 00:42-0400 Diastolic blood pressure 79 mm[Hg] Andrea MARISOL [facility] 01-07-2024 00:42-0400 Mean blood pressure 99 mm[Hg] Andreanuno QUESADASLIN [facility] 01-07-2024 00:42-0400 Systolic blood pressure 138 mm[Hg] Andrea MARISOL [facility] 01-06-2024 15:45-0400 Blood Pressure Location Andreanuno QUESADASLIN [facility] 01-06-2024 15:45-0400 Body temperature 97.7 [degF] Andreanuno QUESADASLIN [facility] 01-06-2024 15:45-0400 Mean blood pressure 98 mm[Hg] Andrea MARISOL [facility] 01-06-2024 11:53-0400 gluc 159 mg/dL Andrea MARISOL [facility] 01-06-2024 11:20-0400 Blood Pressure Location Andrea MARISOL [facility] 01-06-2024 11:20-0400 Body temperature 97.7 [degF] Andrea QUESADASLIN [facility] 01-06-2024 11:20-0400 Mean blood pressure 97 mm[Hg] Andrea QUESADASLIN [facility] 01-06-2024 09:32-0400 gluc 152 mg/dL Andreanuno QUESADASLIN [facility] 01-06-2024 07:45-0400 Blood Pressure Location Andrea DAMON [facility] 01-06-2024 07:45-0400 Mean blood pressure 105 mm[Hg] Andrea MONTANEZLIN [facility] 01-05-2024 19:27-0400 Mean blood pressure 84 mm[Hg] Andreanuno MONTANEZLIN [facility] 01-05-2024 19:25-0400 Body temperature 97.34 [degF] Andrea DAMON [facility] 01-05-2024 02:20-0400 Heart rate 106 /min Andrea QUESADASLIN [facility] 01-04-2024 21:14-0400 Heart rate 106 /min Andreanuno QUESADASLIN [facility] 01-04-2024 20:30-0400 Respiratory rate 19 /min Andreanuno QUESADASLIN [facility] 01-04-2024 20:00-0400 Respiratory rate 20 /min Andreanuno QUESADASLIN [facility] 01-04-2024 16:48-0400 SaO2% (BldA) [Mass fraction] 92.2 % Andreanuno QUESADASLIN [facility] 01-04-2024 16:09-0400 Heart rate 111 /min Andrea DAMON [facility] 12-29-2023 22:00-0400 Blood Pressure Location Gaston Diane [facility] 12-29-2023 22:00-0400 Diastolic blood pressure 100 mm[Hg] Gaston Diane [facility] 12-29-2023 22:00-0400 Heart rate 120 /min Gaston Diane [facility] 12-29-2023 22:00-0400 Mean blood pressure 118 mm[Hg] Gaston Diane [facility] 12-29-2023 22:00-0400 Respiratory rate 22 /min Gaston Diane [facility] 12-29-2023 22:00-0400 SaO2% (BldA) [Mass fraction] 92 % Gaston Diane [facility] 12-29-2023 22:00-0400 Systolic blood pressure 155 mm[Hg] Gaston Diane [facility] 12-29-2023 21:04-0400 Heart rate 121 /min Gaston Diane [facility] 12-29-2023 21:04-0400 Respiratory rate 20 /min Gaston Diane [facility] 12-29-2023 21:00-0400 Diastolic blood pressure 99 mm[Hg] Gaston Diane [facility] 12-29-2023 21:00-0400 Heart rate 118 /min Gaston Diane [facility] 12-29-2023 21:00-0400 Systolic blood pressure 157 mm[Hg] Gaston Diane [facility] 12-29-2023 20:50-0400 Respiratory rate 20 /min Gaston Diane [facility] 12-29-2023 20:50-0400 SaO2% (BldA) [Mass fraction] 98 % Gaston Diane [facility] 12-29-2023 20:29-0400 Body temperature 97.52 [degF] Gaston Diane [facility] 12-29-2023 20:29-0400 Diastolic blood pressure 83 mm[Hg] Gaston Diane [facility] 12-29-2023 20:29-0400 Heart rate 123 /min Gaston Diane [facility] 12-29-2023 20:29-0400 Respiratory rate 21 /min Gaston Diane [facility] 12-29-2023 20:29-0400 Systolic blood pressure 143 mm[Hg] Gaston Diane [facility] 12-27-2023 15:05-0400 Body temperature 98.06 [degF] Albaro aBltazar [facility] 12-27-2023 15:05-0400 Diastolic blood pressure 84 mm[Hg] Albaro Mcclainpsey [facility] 12-27-2023 15:05-0400 Heart rate 112 /min Albaro Mcclainpsey [facility] 12-27-2023 15:05-0400 SaO2% (BldA) [Mass fraction] 94 % Albaro Baltazar [facility] 12-27-2023 15:05-0400 Systolic blood pressure 136 mm[Hg] Albaro Baltazar [facility] 12-20-2023 09:04-0400 Body height 142.2 cm Pacc 2 Work Phone: [facility] 12-20-2023 09:04-0400 Body mass index (BMI) [Ratio] 44.53 kg/m2 Pacc 2 Work Phone: [facility] 12-20-2023 09:04-0400 Body temperature 97.2 [degF] Pacc 2 Work Phone: [facility] 12-20-2023 09:04-0400 Body weight 90.1 kg Pacc 2 Work Phone: [facility] 12-20-2023 09:04-0400 Diastolic blood pressure 84 mm[Hg] Pacc 2 Work Phone: [facility] 12-20-2023 09:04-0400 Heart rate 90 /min Pacc 2 Work Phone: [facility] 12-20-2023 09:04-0400 Respiratory rate 16 /min Pacc 2 Work Phone: [facility] 12-20-2023 09:04-0400 SaO2% (BldA) [Mass fraction] 97 % Pacc 2 Work Phone: [facility] 12-20-2023 09:04-0400 Systolic blood pressure 132 mm[Hg] Pacc 2 Work Phone: [facility] 11-07-2023 07:35-0400 Body height 149.86 cm [facility] 11-07-2023 07:35-0400 Body mass index (BMI) [Ratio] 39.6 kg/m2 [facility] 11-07-2023 07:35-0400 Body weight 88.9 kg [facility] 11-07-2023 07:35-0400 Diastolic blood pressure 69 mm[Hg] [facility] 11-07-2023 07:35-0400 Heart rate 85 /min [facility] 11-07-2023 07:35-0400 Respiratory rate 18 /min [facility] 11-07-2023 07:35-0400 SaO2% (BldA) [Mass fraction] 96 % [facility] 11-07-2023 07:35-0400 Systolic blood pressure 118 mm[Hg] [facility] 11-04-2023 08:58-0400 Body height 149.9 cm John Holly MD Work Phone: [facility] 11-04-2023 08:58-0400 Body mass index (BMI) [Ratio] 38.98 kg/m2 John Holly MD Work Phone: [facility] 11-04-2023 08:58-0400 Body weight 87.54 kg John Holly MD Work Phone: [facility] 10-05-2023 14:19-0400 Blood Pressure Location Rainer Floyd [facility] 10-05-2023 14:19-0400 Body temperature 98.24 [degF] Rainer Floyd [facility] 10-05-2023 14:19-0400 Diastolic blood pressure 80 mm[Hg] Rainer Floyd [facility] 10-05-2023 14:19-0400 Heart rate 101 /min Rainer Floyd [facility] 10-05-2023 14:19-0400 SaO2% (BldA) [Mass fraction] 98 % Rainer Floyd [facility] 10-05-2023 14:19-0400 Systolic blood pressure 128 mm[Hg] Rainer Floyd [facility] 09-14-2023 09:47-0400 Blood Pressure Location Serge SLOAN [facility] 09-14-2023 09:47-0400 Body temperature 98.24 [degF] Serge SLOAN [facility] 09-14-2023 09:47-0400 Diastolic blood pressure 76 mm[Hg] [facility] [facility] 09-14-2023 09:47-0400 Heart rate 97 /min Serge SLOAN [facility] 09-14-2023 09:47-0400 SaO2% (BldA) [Mass fraction] 95 % Serge SLOAN [facility] 09-14-2023 09:47-0400 Systolic blood pressure 116 mm[Hg] Serge SLOAN [facility] 07-24-2023 10:00-0500 Body height 149.86 cm MD Aline Guerrero Work Phone: [facility] 07-24-2023 10:00-0500 Body weight 87.31 kg MD Aline Guerrero Work Phone: [facility] 07-24-2023 10:00-0500 Diastolic blood pressure 102 mm[Hg] MD Aline Guerrero Work Phone: [facility] 07-24-2023 10:00-0500 Systolic blood pressure 145 mm[Hg] MD Aline Guerrero Work Phone: [facility] 02-20-2023 14:49-0400 Body height 149.9 cm Medardo Vuong MEAT TEAM MEMBER-QUALITY ASSURANCE SUPERVISOR Work Phone: [employer] [facility] 02-20-2023 14:49-0400 Body mass index (BMI) [Ratio] 34.95 kg/m2 Medardo Vuong MEAT TEAM MEMBER-QUALITY ASSURANCE SUPERVISOR Work Phone: [employer] [facility] 02-20-2023 14:49-0400 Body temperature 98.6 [degF] Medardo Vuong MEAT TEAM MEMBER-QUALITY ASSURANCE SUPERVISOR Work Phone: [facility] 02-20-2023 14:49-0400 Body weight 78.5 kg Medardo CASTILLO Work Phone: [facility] 12-05-2022 15:33-0400 Blood Pressure Location Teodora Ott [facility] 12-05-2022 15:33-0400 Body temperature 98.06 [degF] Teodora Ott [facility] 12-05-2022 15:33-0400 Diastolic blood pressure 82 mm[Hg] Teodora Ott [facility] 12-05-2022 15:33-0400 Heart rate 81 /min Teodora Ott [facility] 12-05-2022 15:33-0400 Systolic blood pressure 126 mm[Hg] Teodora Ott [facility] 10-05-2022 19:05-0400 Body height 149.86 cm Naomie Berry Other [facility] Other 10-05-2022 19:05-0400 Body mass index (BMI) [Ratio] 39.99 kg/m2 Naomie Berry Other [facility] Other 10-05-2022 19:05-0400 Body temperature 99 [degF] Naomie Berry Other [facility] Other 10-05-2022 19:05-0400 Body weight 89.81 kg Naomie Berry Other [facility] Other 10-05-2022 19:05-0400 Diastolic blood pressure 67 mm[Hg] Naomie Berry Other [facility] Other 10-05-2022 19:05-0400 Respiratory rate 18 /min Naomie Berry Other [facility] Other 10-05-2022 19:05-0400 SaO2% (BldA) [Mass fraction] 96 % Naomie Berry Other [facility] Other 10-05-2022 19:05-0400 Systolic blood pressure 137 mm[Hg] Naomie Berry Other [facility] Other 09-07-2022 01:41-0500 Diastolic blood pressure 96 mm[Hg] Kaylinn Dokken [facility] 09-07-2022 01:41-0500 Heart rate 87 /min Kaylinn Dokken [facility] 09-07-2022 01:41-0500 Mean blood pressure 122 mm[Hg] Kaylinn Dokken [facility] 09-07-2022 01:41-0500 SaO2% (BldA) [Mass fraction] 95 % Kaylinn Dokken [facility] 09-07-2022 01:41-0500 Systolic blood pressure 175 mm[Hg] Kaylinn Dokken [facility] 09-07-2022 01:09-0500 Diastolic blood pressure 78 mm[Hg] Kaylinn Dokken [facility] 09-07-2022 01:09-0500 Heart rate 105 /min Kaylinn Dokken [facility] 09-07-2022 01:09-0500 Mean blood pressure 109 mm[Hg] Kaylinn Dokken [facility] 09-07-2022 01:09-0500 SaO2% (BldA) [Mass fraction] 95 % Kaylinn Dokken [facility] 09-07-2022 01:09-0500 Systolic blood pressure 172 mm[Hg] Kaylinn Dokken [facility] 09-07-2022 00:52-0500 Heart rate 83 /min Kaylinn Dokken [facility] 09-07-2022 00:52-0500 Respiratory rate 22 /min Kaylinn Dokken [facility] 09-07-2022 00:42-0500 Respiratory rate 22 /min Kaylinn Dokken [facility] 09-07-2022 00:42-0500 SaO2% (BldA) [Mass fraction] 98 % Kaylinn Dokken [facility] 09-07-2022 00:32-0500 Respiratory rate 22 /min Kaylinn Dokken [facility] 09-06-2022 23:50-0500 Body temperature 97.88 [degF] Kaylinn Dokken [facility] 09-06-2022 23:50-0500 Diastolic blood pressure 93 mm[Hg] Kaylinn Dokken [facility] 09-06-2022 23:50-0500 Heart rate 75 /min Kaylinn Dokken [facility] 09-06-2022 23:50-0500 Systolic blood pressure 164 mm[Hg] Kaylinn Dokken [facility] 08-31-2022 16:35-0500 Body height 149.86 cm Consuelo Rosales Other [facility] Other 08-31-2022 16:35-0500 Body mass index (BMI) [Ratio] 37.16 kg/m2 Consuelo Rosales Other [facility] Other 08-31-2022 16:35-0500 Body temperature 98.2 [degF] Consuelo Rosales Other [facility] Other 08-31-2022 16:35-0500 Body weight 83.46 kg Consuelo Rosales Other [facility] Other 08-31-2022 16:35-0500 Respiratory rate 18 /min Consuelo Rosales Other [facility] Other 08-31-2022 16:35-0500 SaO2% (BldA) [Mass fraction] 99 % Consuelo Rosales Other [facility] Other 07-24-2022 15:32-0500 Blood Pressure Location Sergeluann SLOAN [facility] 07-24-2022 15:32-0500 Diastolic blood pressure 72 mm[Hg] Sergeluann BELLAG [facility] 07-24-2022 15:32-0500 Heart rate 77 /min Sergeluann BELLAG [facility] 07-24-2022 15:32-0500 Respiratory rate 18 /min Sergeluann BELLAG [facility] 07-24-2022 15:32-0500 SaO2% (BldA) [Mass fraction] 100 % Sergeluann BELLAG [facility] 07-24-2022 15:32-0500 Systolic blood pressure 122 mm[Hg] Serge SLOAN [facility] 06-06-2022 16:17-0500 Body height 149.9 cm Puja Pendleton MD Work Phone: [employer] 06-06-2022 16:17-0500 Body mass index (BMI) [Ratio] 34.94 kg/m2 Puja Pendleton MD Work Phone: [employer] [facility] 06-06-2022 16:17-0500 Body temperature 97.5 [degF] Puja Pendleton MD Work Phone: [employer] [facility] 06-06-2022 16:17-0500 Body weight 78.47 kg Puja Pendleton MD Work Phone: [employer] 05-26-2022 13:50-0500 Body height 149.86 cm Naomie Berry Other [facility] Other 05-26-2022 13:50-0500 Body mass index (BMI) [Ratio] 36.96 kg/m2 Naomie Kristi Other [facility] Other 05-26-2022 13:50-0500 Body temperature 97.1 [degF] Naomie Kristi Other [facility] Other 05-26-2022 13:50-0500 Body weight 83.01 kg Naomie Kristi Other [facility] Other 05-26-2022 13:50-0500 Respiratory rate 19 /min Naomie Kristi Other [facility] Other 05-26-2022 13:50-0500 SaO2% (BldA) [Mass fraction] 90 % Naomiedavid Berry Other [facility] Other 05-22-2022 16:52-0500 Hourly Rounding Andrea MARISOL [facility] 05-22-2022 16:52-0500 Promise to Return Andrea MARISOL [facility] 05-22-2022 16:24-0500 SaO2% (BldA) [Mass fraction] 96 % Andrea MARISOL [facility] 05-22-2022 15:46-0500 Heart rate 80 /min Andrea MARISOL [facility] 05-22-2022 15:46-0500 Respiratory rate 16 /min Andrea MARISOL [facility] 05-22-2022 15:45-0500 Hourly Rounding Andrea MARISOL [facility] 05-22-2022 15:45-0500 Promise to Return Andrea MARISOL [facility] 05-22-2022 15:38-0500 Heart rate 87 /min Andrea MARISOL [facility] 05-22-2022 15:38-0500 Respiratory rate 16 /min Andrea MARISOL [facility] 05-22-2022 15:38-0500 SaO2% (BldA) [Mass fraction] 94 % Andrea MARISOL [facility] 05-22-2022 14:23-0500 Hourly Rounding Andrea MARSIOL [facility] 05-22-2022 14:23-0500 Promise to Return Andrea MARISOL [facility] 05-22-2022 11:56-0500 Heart rate 84 /min Andrea MARISOL [facility] 05-22-2022 11:56-0500 Respiratory rate 18 /min Andrea QUESADASLIN [facility] 05-22-2022 11:00-0500 Diastolic blood pressure 74 mm[Hg] Andrea MARISOL [facility] 05-22-2022 11:00-0500 gluc 98 mg/dL Andreanuno QUESADASLIN [facility] 05-22-2022 11:00-0500 SaO2% (BldA) [Mass fraction] 95 % Andreanuno QUESADASLIN [facility] 05-22-2022 11:00-0500 Systolic blood pressure 118 mm[Hg] Andreanuno QUESADASLIN [facility] 05-22-2022 08:00-0500 gluc 78 mg/dL Andreaunno QUESADASLIN [facility] 05-22-2022 07:27-0500 Body temperature 98.06 [degF] Andrea QUESADASLIN [facility] 05-22-2022 07:27-0500 Diastolic blood pressure 67 mm[Hg] Andreanuno QUESADASLIN [facility] 05-22-2022 07:27-0500 Mean blood pressure 80 mm[Hg] Andreanuno QUESADASLIN [facility] 05-22-2022 07:27-0500 Systolic blood pressure 107 mm[Hg] Andrea MARISOL [facility] 05-22-2022 03:44-0500 Blood Pressure Location Andrea MARISOL [facility] 05-22-2022 03:44-0500 Diastolic blood pressure 66 mm[Hg] Andrea MARISOL [facility] 05-22-2022 03:44-0500 Heart rate 107 /min Andrea MARISOL [facility] 05-22-2022 03:44-0500 Systolic blood pressure 107 mm[Hg] Andrea MARISOL [facility] 05-22-2022 03:36-0500 Heart rate 106 /min Andrea MARISOL [facility] 05-22-2022 03:36-0500 Mean blood pressure 77 mm[Hg] Andrea MARISOL [facility] 05-22-2022 03:36-0500 Respiratory rate 23 /min Andrea MARISOL [facility] 05-22-2022 02:06-0500 Heart rate 105 /min Andrea MARISOL [facility] 05-22-2022 02:06-0500 Mean blood pressure 84 mm[Hg] Andrea MARISOL [facility] 05-22-2022 02:06-0500 Respiratory rate 16 /min Andrea MARISOL [facility] 05-22-2022 01:39-0500 Mean blood pressure 98 mm[Hg] Andrea MARISOL [facility] 05-22-2022 00:20-0500 gluc 94 mg/dL Andrea MARISOL [facility] 05-22-2022 00:20-0500 gluc Andrea MARISOL [facility] 05-21-2022 08:58-0500 Blood Pressure Location Lorene Fong [facility] 05-21-2022 08:58-0500 Body temperature 97.7 [degF] Lorene Fong [facility] 05-21-2022 08:58-0500 BP/Pulse Patient Position Lorene Fong [facility] 05-21-2022 08:58-0500 Diastolic blood pressure 87 mm[Hg] Lorene Fong [facility] 05-21-2022 08:58-0500 Heart rate 99 /min Lorene Fong [facility] 05-21-2022 08:58-0500 Mean blood pressure 105 mm[Hg] Lorene Fong [facility] 05-21-2022 08:58-0500 Respiratory rate 16 /min Lorene Fong [facility] 05-21-2022 08:58-0500 SaO2% (BldA) [Mass fraction] 97 % Lorene Fong [facility] 05-21-2022 08:58-0500 Systolic blood pressure 143 mm[Hg] Lorene Fong [facility] 05-21-2022 08:40-0500 Blood Pressure Location [employer]mia [employer] [facility] 05-21-2022 08:40-0500 Diastolic blood pressure 75 mm[Hg] Castelan SALAM [facility] 05-21-2022 08:40-0500 Heart rate 101 /min Castelan SALAM [facility] 05-21-2022 08:40-0500 Respiratory rate 16 /min Castelan SALAM [facility] 05-21-2022 08:40-0500 SaO2% (BldA) [Mass fraction] 98 % Castelan SALAM [facility] 05-21-2022 08:40-0500 Systolic blood pressure 144 mm[Hg] Castelan SALAM [facility] 05-21-2022 08:30-0500 Blood Pressure Location Castelan SALAM [facility] 05-21-2022 08:30-0500 Diastolic blood pressure 97 mm[Hg] Castelan SALAM [facility] 05-21-2022 08:30-0500 Heart rate 101 /min Castelan SALAM [facility] 05-21-2022 08:30-0500 Respiratory rate 16 /min Castelan SALAM [facility] 05-21-2022 08:30-0500 SaO2% (BldA) [Mass fraction] 97 % Castelan SALAM [facility] 05-21-2022 08:30-0500 Systolic blood pressure 167 mm[Hg] Castelan SALAM [facility] 05-21-2022 08:25-0500 Blood Pressure Location Castelan SALAM [facility] 05-21-2022 08:25-0500 Diastolic blood pressure 88 mm[Hg] Castelan SALAM [facility] 05-21-2022 08:25-0500 Heart rate 105 /min Castelan SALAM [facility] 05-21-2022 08:25-0500 Respiratory rate 16 /min Castelan SALAM [facility] 05-21-2022 08:25-0500 SaO2% (BldA) [Mass fraction] 96 % Castelan SALAM [facility] 05-21-2022 08:25-0500 Systolic blood pressure 152 mm[Hg] Castelan SALAM [facility] 05-21-2022 08:14-0500 Body temperature 98.42 [degF] Castelan SALAM [facility] 05-21-2022 07:19-0500 Body temperature 97.34 [degF] Castelan SALAM [facility] 05-11-2022 14:11-0500 Diastolic blood pressure 82 mm[Hg] Teodora Tru [facility] 05-11-2022 14:11-0500 Mean blood pressure 100 mm[Hg] Teodora Tru [facility] 05-11-2022 14:11-0500 Systolic blood pressure 136 mm[Hg] Teodora Tru [facility] 05-11-2022 14:06-0500 Blood Pressure Location Teodora Tru [facility] 05-11-2022 14:06-0500 Body temperature 97.16 [degF] Teodora Tru [facility] 05-11-2022 14:06-0500 Diastolic blood pressure 86 mm[Hg] Teodora Tru [facility] 05-11-2022 14:06-0500 Heart rate 81 /min Teodora Tru [facility] 05-11-2022 14:06-0500 Systolic blood pressure 143 mm[Hg] Teodora Tru [facility] 05-02-2022 17:30-0400 Body height 149.86 cm Naomie Berry Other [facility] Other 05-02-2022 17:30-0400 Body mass index (BMI) [Ratio] 36.76 kg/m2 Naomie Berry Other [facility] Other 05-02-2022 17:30-0400 Body temperature 96.9 [degF] Naomie Berry Other [facility] Other 05-02-2022 17:30-0400 Body weight 82.56 kg Naomie Berry Other [facility] Other 05-02-2022 17:30-0400 Respiratory rate 18 /min Naomie Berry Other [facility] Other 05-02-2022 17:30-0400 SaO2% (BldA) [Mass fraction] 99 % Naomie Berry Other [facility] Other 04-15-2022 14:30-0400 Body height 149.86 cm Consuelo Rosales Other [facility] Other 04-15-2022 14:30-0400 Body mass index (BMI) [Ratio] 34.94 kg/m2 Consuelo Rosales Other [facility] Other 04-15-2022 14:30-0400 Body temperature 97.4 [degF] Consuelo Rosales Other [facility] Other 04-15-2022 14:30-0400 Body weight 78.47 kg Consuelo Rosales Other [facility] Other 04-15-2022 14:30-0400 Respiratory rate 18 /min Consuelo Rosales Other [facility] Other 04-15-2022 14:30-0400 SaO2% (BldA) [Mass fraction] 97 % Consuelo Rosales Other [facility] Other 04-05-2022 19:05-0400 Body height 149.86 cm Tonia Zavala Other [facility] Other 04-05-2022 19:05-0400 Body mass index (BMI) [Ratio] 34.53 kg/m2 Tonia Zavala Other [facility] Other 04-05-2022 19:05-0400 Body temperature 98.6 [degF] Tonia aZvala Other [facility] Other 04-05-2022 19:05-0400 Body weight 77.57 kg Tonia Zavala Other [facility] Other 04-05-2022 19:05-0400 Respiratory rate 18 /min Tonia Zavala Other [facility] Other 04-05-2022 19:05-0400 SaO2% (BldA) [Mass fraction] 90 % Tonia Zavala Other [facility] Other 02-15-2022 14:19-0400 Body height 149.9 cm [employer] Work Phone: [employer] 02-15-2022 14:19-0400 Body mass index (BMI) [Ratio] 34.94 kg/m2 [employer] Work Phone: [employer] 02-15-2022 14:19-0400 Body temperature 98.01 [degF] [employer] Work Phone: [facility] 02-15-2022 14:19-0400 Body weight 78.47 kg Medardo LANDISQUALITY ASSURANCE SUPERVISOR Work Phone: [facility] 01-24-2022 12:38-0400 Body temperature 98.71 [degF] Puja Pendleton MD Work Phone: [facility] 01-24-2022 12:38-0400 Diastolic blood pressure 84 mm[Hg] Puja Pendleton MD Work Phone: [facility] 01-24-2022 12:38-0400 Heart rate 96 /min Puja Pendleton MD Work Phone: [facility] 01-24-2022 12:38-0400 Respiratory rate 18 /min Puja Pendleton MD Work Phone: [facility] 01-24-2022 12:38-0400 SaO2% (BldA) [Mass fraction] 96 % Puja Pendleton MD Work Phone: [facility] 01-24-2022 12:38-0400 Systolic blood pressure 162 mm[Hg] Puja Pendleton MD Work Phone: [facility] 01-23-2022 09:47-0400 Body height 149.9 cm Puja Pendleton MD Work Phone: [facility] 01-23-2022 09:47-0400 Body mass index (BMI) [Ratio] 34.42 kg/m2 Puja Pendleton MD Work Phone: [facility] 01-23-2022 09:47-0400 Body weight 77.29 kg Puja Pendleton MD Work Phone: [employer] [facility] 01-11-2022 10:18-0400 Body height 149.9 cm Puja Pendleton MD Work Phone: [facility] 01-11-2022 10:18-0400 Body mass index (BMI) [Ratio] 34.94 kg/m2 Puja Pendleton MD Work Phone: [facility] 07-14-2022 10:18-0400 Body temperature 98.49 [degF] Puja Pendleton MD Work Phone: [employer] 01-11-2022 10:18-0400 Body weight 78.47 kg Puja Pendleton MD Work Phone: [employer] 12-15-2021 17:30-0400 Body height 149.86 cm Consuelo Rosales Other [employer] Other 12-15-2021 17:30-0400 Body mass index (BMI) [Ratio] 32.51 kg/m2 Consuelo Rosales Other [employer] Other 12-15-2021 17:30-0400 Body temperature 98.2 [degF] Consuelo Rosales Other [employer] Other 12-15-2021 17:30-0400 Body weight 73.03 kg Consuelo Rosales Other [employer] Other 12-15-2021 17:30-0400 Respiratory rate 18 /min Consuelo Rosales Other [employer] Other 12-15-2021 17:30-0400 SaO2% (BldA) [Mass fraction] 96 % Consuelo Rosales Other [facility] Other 11-01-2021 16:45-0400 Body height 149.86 cm Tondra Mapus Other [employer] Other 11-01-2021 16:45-0400 Body mass index (BMI) [Ratio] 35.14 kg/m2 Tondra Mapus Other [employer] Other 11-01-2021 16:45-0400 Body weight 78.93 kg Tondra Mapus Other [employer] Other 11-01-2021 16:45-0400 Diastolic blood pressure 73 mm[Hg] Tondra Mapus Other [employer] Other 11-01-2021 16:45-0400 Respiratory rate 16 /min Tondra Mapus Other [employer] Other 11-01-2021 16:45-0400 SaO2% (BldA) [Mass fraction] 98 % Tondra Mapus Other [employer] Other 11-01-2021 16:45-0400 Systolic blood pressure 144 mm[Hg] Tondra Mapus Other [employer] Other 10-13-2021 11:12-0400 Blood Pressure Location Teodorajanee Ott [facility] 10-13-2021 11:12-0400 Body temperature 97.52 [degF] Teodora Ott [facility] 10-13-2021 11:12-0400 Diastolic blood pressure 60 mm[Hg] Teodora Ott [facility] 10-13-2021 11:12-0400 Heart rate 81 /min Teodorajanee Ott [facility] 10-13-2021 11:12-0400 SaO2% (BldA) [Mass fraction] 96 % Teodorajanee Brunerz [facility] 10-13-2021 11:12-0400 Systolic blood pressure 94 mm[Hg] Teodora Ott [facility] 10-04-2021 15:26-0400 Body temperature 97.88 [degF] [facility]-04-[facility]21 15:26-0400 Diastolic blood pressure 90 mm[Hg] [facility] 10-04-2021 15:26-0400 Heart rate 76 /min [facility]-04-[facility]21 15:26-0400 Mean blood pressure 116 mm[Hg] [facility]-04-[facility]21 15:26-0400 SaO2% (BldA) [Mass fraction] 96 % [facility] 10-04-2021 15:26-0400 Systolic blood pressure 167 mm[Hg] [facility] 10-04-2021 15:00-0400 Respiratory rate 16 /min [facility] 08-28-2021 17:35-0500 Body height 149.86 cm Tonia Zavala Other [facility] [employer] Other 08-28-2021 17:35-0500 Body mass index (BMI) [Ratio] 36.76 kg/m2 Tonia Zavala Other [employer] Other 08-28-2021 17:35-0500 Body temperature 98 [degF] Tonia Zavala Other [employer] Other 08-28-2021 17:35-0500 Body weight 82.56 kg Tonia Zavala Other [employer] Other 08-28-2021 17:35-0500 Diastolic blood pressure 73 mm[Hg] Tonia Zavala Other [employer] Other 08-28-2021 17:35-0500 Respiratory rate 18 /min Tonia Zavala Other [employer] Other 08-28-2021 17:35-0500 SaO2% (BldA) [Mass fraction] 98 % Tonia Zavala Other [facility] Other 08-28-2021 17:35-0500 Systolic blood pressure 154 mm[Hg] Tonia Zavala Other [employer] Other 04-05-2021 17:15-0400 Body height 149.86 cm Jesus Higgins Jr. Other [employer] Other 04-05-2021 17:15-0400 Body mass index (BMI) [Ratio] 38.75 kg/m2 Jesus Higgins Jr. Other [employer] Other 04-05-2021 17:15-0400 Body weight 87.05 kg Jesus Higgins Jr. Other [facility] Other 04-05-2021 17:15-0400 Diastolic blood pressure 77 mm[Hg] Jesus Higgins Jr. Other [employer] Other 04-05-2021 17:15-0400 Respiratory rate 18 /min Jesus Higgins Jr. Other [employer] Other 04-05-2021 17:15-0400 SaO2% (BldA) [Mass fraction] 99 % Jesus Higgins Jr. Other [facility] Other 04-05-2021 17:15-0400 Systolic blood pressure 128 mm[Hg] Jesus Gisela Coronado Other [employer] Other 05-16-2017 15:00-0500 Pulse (Heart Rate) 86 /min Shante Delarosa [facility] Work Phone: 05-16-2017 15:00-0500 Pulse Oximetry 94 % Shante Delarosa [facility] Work Phone: 05-16-2017 15:00-0500 Respiratory Rate 16 /min Shante Delarosa [facility] Work Phone: 05-16-2017 14:45-0500 BP Diastolic 62 mm[Hg] Shante Delarosa [facility] Work Phone: 05-16-2017 14:45-0500 BP Systolic 130 mm[Hg] Shante Delarosa [facility] Work Phone: 05-16-2017 13:45-0500 Body Temperature 98.4 [degF] Shante Delarosa [facility] Work Phone: 05-13-2017 09:41-0500 BMI (Body Mass Index) 39.99 kg/m2 Rosa Lazo [employer] [facility] Work Phone: 05-13-2017 09:41-0500 Body Temperature 97.9 [degF] Rosa Lazo [facility] Work Phone: 05-13-2017 09:41-0500 BP Diastolic 81 mm[Hg] Rosa Lazo [facility] Work Phone: 05-13-2017 09:41-0500 BP Systolic 138 mm[Hg] Rosa Lazo [employer] [facility] Work Phone: 05-13-2017 09:41-0500 Height 149.9 cm Rosa Lazo [employer] [facility] Work Phone: 05-13-2017 09:41-0500 Pulse (Heart Rate) 81 /min Rosa Lazo [employer] [facility] Work Phone: 05-13-2017 09:41-0500 Pulse Oximetry 97 % Rosa Lazo [facility] Work Phone: 05-13-2017 09:41-0500 Weight 89.81 kg Rosa Lazo [facility] Work Phone: Encounters Encounter Date Encounter Type Care Provider Facility Start: 03-12-2025 End: 03-13-2025 Emergency department patient visit SANTINO MORAN Facility:[facility] Start: 03-12-2025 End: 03-15-2025 Refill Gabo Ana ME[employer] TE[employer] MEMBER.QUALITY ASSURANCE SUPERVISOR Work Phone: Rheumatology Comment on above: Refill Request Start: 02-18-2025 End: 02-18-2025 ambulatory XXXX NONE [place] [place]: 02-15-2025 End: 02-15-2025 Patient encounter procedure [...] 02-15-2025 End: 02-15-2025 ambulatory SANTINO M PIERREDash Facility:[facility] Start: 02-11-2025 End: 02-11-2025 ambulatory Santino Moran MD Work Phone: [facility] Work Phone: Start: 02-11-2025 End: 02-11-2025 Departed Referred Ze Francois MD -Lab [facility] Work Phone: Start: 02-08-2025 End: 02-08-2025 ambulatory Maurice Werner DPM Facility:Ortho/Spo [facility] Start: 02-01-2025 End: 02-01-2025 Bamboo flowsheet Adam Hernandez MD Work Phone: [facility] Start: 02-01-2025 End: 02-01-2025 Bamboo flowsheet [...] 12-23-2024 ambulatory Santino Moran MD Work Phone: [facility] Work Phone: Start: 12-23-2024 End: 12-23-2024 Departed Referred Ze Francois MD -Lab [facility] Work Phone: Start: 12-20-2024 End: 12-20-2024 Patient encounter procedure Marcelle Marcos MEAT TEAM MEMBER -[facility] Work Phone: Start: 12-15-2024 End: 12-17-2024 ambulatory Stevo Neff MD Work Phone: Rheumatology Start: 12-15-2024 End: 12-17-2024 Patient encounter procedure Stevo Neff MD Work Phone: Rheumatology Comment on above: New prescription for rinvog Start: 12-08-2024 End: 12-08-2024 ambulatory Santino Moran MD Work Phone: [facility] Work Phone: Start: 12-08-2024 End: 12-08-2024 Patient encounter procedure Santino Moran MD Work Phone: [facility] Work Phone: Start: 12-03-2024 End: 12-03-2024 ambulatory SANTINO MORAN Facility:[facility] Start: 11-30-2024 End: 12-03-2024 Refill Stevo Neff MD Work Phone: Rheumatology Comment on above: Refill Request Start: 11-22-2024 End: 11-24-2024 Refill Adam Hernandez MD Work Phone: [facility] Comment on above: Seasonal allergic rh initis due to pollen Start: 11-20-2024 End: 11-20-2024 Patient encounter procedure Santino Moran MD Work Phone: [facility] Work Phone: Start: 11-20-2024 End: 11-20-2024 ambulatory Santino Moran MD Work Phone: [facility] Work Phone: Start: 11-20-2024 End: 11-20-2024 ambulatory Santino Moran MD Work Phone: [facility] Work Phone: Start: 11-20-2024 End: 11-20-2024 Patient encounter procedure Santino Moran MD Work Phone: [facility] Work Phone: Start: 11-11-2024 End: 11-11-2024 ambulatory XXXX NONE [facility] Start: 11-11-2024 End: 11-11-2024 Patient encounter procedure Oswald Curry [facility] Start: 10-28-2024 End: 10-28-2024 ambulatory Ze Francois [facility] Work Phone: Start: 10-28-2024 End: 10-28-2024 Departed Referred Ze Francois MD Work Phone: [facility] [place] Work Phone: Start: 09-28-2024 End: 09-29-2024 ambulatory XXXX NONE Facility[facility] Start: 09-28-2024 End: 09-29-2024 Patient encounter procedure Oswald Curry [facility] Start: 09-16-2024 End: 09-16-2024 ambulatory Ze Francois [facility] Work Phone: Start: 09-16-2024 End: 09-16-2024 Departed Referred Ze Francois MD Work Phone: [facility] [place] Work Phone: Start: 08-31-2024 End: 08-31-2024 Bamboo [...] Start: 08-23-2024 End: 08-23-2024 ambulatory SELWYN Curry Facility:[facility] Start: 08-23-2024 End: 08-23-2024 Patient encounter procedure Oswald Curry [facility] Start: 08-13-2024 End: 08-14-2024 Refill Ruthie Leblanc MD Work Phone: Rheumatology Comment on above: Refill Request Start: 08-09-2024 End: 08-09-2024 ambulatory Marcelle Bernal Facility:[facility] Start: 08-09-2024 End: 08-09-2024 Patient encounter procedure Marcelle Bernal [facility] Start: 08-04-2024 End: 08-05-2024 [...] 06-29-2024 End: 06-29-2024 ambulatory SANTINO M PIERREDash Facility:[facility] Start: 06-29-2024 End: 06-29-2024 Telemedicine consultation with patient Ros Christianson DO Work Phone: Infectious Disease Start: 06-23-2024 End: 06-23-2024 ambulatory Luke Mireles [facility] Infectious Disease Comment on above: CoPat Management (La b review, vancomycin) Start: 06-23-2024 End: 06-23-2024 Patient encounter procedure Oswald Curry [facility] Start: 06-16-2024 End: 06-16-2024 ambulatory Luke Mireles [facility] Infectious Disease Comment on above: CoPat Management [...] Start: 06-09-2024 End: 06-09-2024 ambulatory Luke Mireles [facility] Infectious Disease Comment on above: CoPat Management (La b review, vancomycin) Start: 06-08-2024 End: 06-09-2024 ambulatory Ros Christianson DO Work Phone: Infectious Disease Comment on above: Outside Lab Results Start: 06-05-2024 End: 06-05-2024 Patient encounter procedure John Holly MD Work Phone: Orthopaedics Comment on above: Failed orthopedic im plant, subsequent encounter (Primary Dx) Start: 06-05-2024 End: 06-05-2024 ambulatory JOHN HOLLY Facility:[facility] Start: 06-05-2024 End: 06-05-2024 Subsequent hospital visit by physician Xr [facility] [place] Work Phone: Radiology Comment on above: Failed orthopedic im plant, subsequent encounter [T84.498D] Start: 06-03-2024 End: 06-03-2024 Subsequent hospital visit by physician [facility] (I-Stat) Work Phone: [facility] Radiology CT Scan Start: 06-02-2024 End: 06-02-2024 ambulatory Luke Mireles [facility] Infectious Disease Comment on above: CoPat Management (La b review, vancomycin) Start: 06-01-2024 End: 06-02-2024 ambulatory Ros Christianson DO Work Phone: Infectious Disease Comment on above: Outside Lab Results Start: 05-27-2024 End: 05-27-2024 ambulatory Luke Mirlees [facility] Infectious Disease Comment on above: CoPat Management (La b review, vancomycin) Start: 05-24-2024 End: 05-24-2024 ambulatory [facility] Start: 05-22-2024 End: 05-22-2024 ambulatory Ros Christianson DO Work Phone: Infectious Disease Comment on above: CoPat Agency CoPat Start CoPat Management (Malorie king) Start: 05-21-2024 End: 05-21-2024 ambulatory ROS CHRISTIANSON Facility:[facility] Start: 05-21-2024 End: 05-21-2024 Office outpatient new [...] >= 40 Start: 05-21-2024 End: 05-21-2024 ambulatory UNIT COORDINATOR Berry Beth Facility:[facility] Start: 05-20-2024 End: 05-22-2024 ambulatory Ros Christianson DO Work Phone: Infectious Disease Comment on above: Outside Lab Results Start: 05-18-2024 End: 05-18-2024 ambulatory JOHN HOLLY Facility:[facility] Start: 05-18-2024 End: 05-18-2024 Patient encounter procedure John Holly MD Work Phone: Orthopaedics Comment on above: Failed orthopedic im plant, subsequent encounter (Primary Dx); Rheumatoid arthritis of multiple sites without rheumatoid factor (HCC); Dehiscence of operative wound, initial encounter Start: 05-18-2024 End: 05-18-2024 ambulatory JOHN ENTTAQUERIA Facility:[facility] Start: 05-18-2024 End: 05-18-2024 Subsequent hospital visit by physician Xr [facility] Radiology Comment on above: S/P shoulder surgery [Z98.890] Start: 05-18-2024 End: 06-10-2024 ambulatory UNIT COORDINATOR Berry Beth Facility:CD:[id number] Start: 05-13-2024 End: 05-13-2024 Orders [...] Unsolicited Start: 05-11-2024 End: 05-12-2024 Telephone encounter Wnog Zamora Research Coordinator Work Phone: Orthopaedics Comment on above: Research Phone Inter view (IRB# [phone] [facility]) Start: 05-04-2024 End: 05-04-2024 Bamboo flowsheet Merline Prieto DELINQUENT TAX COLLECTION ASSISTANT Work Phone: [facility] Start: 05-04-2024 End: 05-04-2024 Bamboo flowsjuanita Prieto DELINQUENT TAX COLLECTION ASSISTANT Work Phone: [facility] Start: 05-04-2024 End: 05-04-2024 ambulatory Tammie Cortes Facility:[facility] Start: 05-04-2024 End: 05-04-2024 Patient encounter procedure Tammie Cortes [facility] Start: 05-04-2024 End: 05-04-2024 Office outpatient visit 15 minutes Merline Prieto DELINQUENT TAX COLLECTION ASSISTANT Work Phone: [facility] Comment on above: Osteoporosis, unspec ified osteoporosis type, unspecified pathological fracture presence (CMS/HCC) (Primary Dx) Start: 05-04-2024 End: 05-04-2024 ambulatory MERLINE PRIETO Not Available Start: 05-01-2024 End: 05-01-2024 ambulatory STEVE GAMBINO Facility:[facility] Start: 05-01-2024 End: 05-01-2024 Postop follow up visit related to original px Steve ROJO Work Phone: Orthopaedics Comment on above: S/P shoulder surgery (Primary Dx) Start: 04-27-2024 End: 04-27-2024 ambulatory UNIT COORDINATOR Berry Beth Facility:[facility] Start: 04-24-2024 End: 04-24-2024 Telephone encounter Steve ROJO Work Phone: Orthopaedic Surgery [facility] Start: 04-22-2024 End: 04-22-2024 Postop follow up visit related to original px Steve ROJO Work Phone: Orthopaedics Comment on above: S/P shoulder surgery (Primary Dx); Loose orthopedic implant, subsequent encounter Start: 04-22-2024 End: 04-22-2024 ambulatory STEVE GAMBINO Facility:[facility] Start: 04-22-2024 End: 04-22-2024 Subsequent hospital visit by physician Xr [facility] [place] Work Phone: Radiology Comment on above: S/P shoulder surgery [Z98.890] Start: 04-16-2024 End: 05-15-2024 ambulatory UNIT COORDINATOR Berry L Kirit Facility:CD:[id number] Start: 04-15-2024 End: 04-15-2024 Evaluation and management of inpatient JOHN ELAYNE Facility:[facility] Start: 04-15-2024 End: 04-20-2024 Telephone encounter Jeny Arriaza APRN.CNP Work Phone: Pain Management Start: 04-14-2024 End: 04-15-2024 Evaluation and management of inpatient JOHN HOLLY Facility:[facility] Start: 04-08-2024 End: 04-08-2024 Telephone encounter John Holly MD Work Phone: Orthopaedics Comment on above: Returning Patient's Call Start: 04-07-2024 End: 04-07-2024 ambulatory JUANA HELLER Facility[facility] Start: 04-07-2024 End: 04-07-2024 Patient encounter procedure JUANA HELLER [facility] Start: 04-01-2024 End: 04-03-2024 Telephone encounter Steve ROJO Work Phone: Orthopaedics Comment on above: Peer To Peer Consult ation Start: 03-30-2024 End: 03-30-2024 ambulatory BERRY GELLERAB Facility:[facility] Start: 03-30-2024 Encounter for other preprocedural examination JOHN HOLLY [facility] Start: 03-30-2024 End: 03-30-2024 Admission to establishment [place] [id number] Work Phone: Pre Anesthesia Start: 03-30-2024 End: 03-30-2024 ambulatory BERRY BENÍTEZ [facility] Facility:[facility] Start: 03-30-2024 End: 03-30-2024 Anesthesia consultation [facility] Work Phone: Pre Anesthesia [...] Start: 03-30-2024 End: 03-30-2024 Preprocedural examination done [place] [id number] Work Phone: [facility] Work Phone: Start: 03-25-2024 End: 03-25-2024 ambulatory [...] Start: 03-24-2024 End: 03-24-2024 ambulatory BERRY BETH Facility:[facility] Start: 03-23-2024 End: 03-23-2024 ambulatory XXXX NONE Facility[facility] Start: 03-23-2024 End: 03-23-2024 Patient encounter procedure Oswald Curry [facility] Start: 03-13-2024 End: 03-13-2024 Patient encounter procedure [...] Start: 03-06-2024 End: 03-06-2024 ambulatory Berry Beth Facility:[facility] Start: 03-03-2024 End: 03-03-2024 ambulatory Oswald Curry Facility:[facility] Start: 03-03-2024 End: 03-03-2024 Patient encounter procedure Oswald Curry [facility] Start: 02-27-2024 End: 02-27-2024 Telephone encounter Stevo Neff MD Work Phone: Rheumatology Comment on above: Medication Authoriza tion (Rinvoq ER) Start: 02-07-2024 End: 03-13-2024 ambulatory Lanny Pérez RN Orthopaedics Start: 02-07-2024 Telephone encounter John toure MD Work Phone: Orthopaedics Comment on above: 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 Start: 02-06-2024 End: 02-06-2024 ambulatory XXXX NONE Facility:[facility] Start: 02-06-2024 End: 02-06-2024 Patient encounter procedure Oswald Curry [facility] Start: 02-04-2024 End: 02-05-2024 Pre-admission assessment Oswald Curry [facility] Start: 01-29-2024 End: 01-29-2024 ambulatory Berry L Kirit Facility:[facility] Start: 01-27-2024 End: 01-27-2024 Patient encounter procedure Albaro Baltazar [facility] Start: 01-27-2024 End: 02-26-2024 ambulatory Berry L Kirit Facility:CD:[id number] Start: 01-24-2024 End: 01-24-2024 ambulatory Almaraz Talal Sarmini Facility:[facility] Start: 01-24-2024 End: 01-24-2024 Patient encounter procedure Almaraz Talal Conradmini [facility] Start: 01-21-2024 End: 01-24-2024 Evaluation and management of inpatient DO Shalom [place] Facility:[facility] Start: 01-20-2024 Emergency department patient visit DO Shalom [place] Facility:[facility] Start: 01-20-2024 End: 01-24-2024 Evaluation and management of inpatient Halle HOUSTON [facility] Start: 01-17-2024 End: 01-25-2024 Pre-admission assessment Oswald Curry [facility] Start: 01-15-2024 End: 01-15-2024 ambulatory Berry L Kirit Facility:[facility] [place] Start: 01-14-2024 ambulatory ARABELLA Abramsi ty:[facility] [place] Start: 01-13-2024 End: 01-21-2024 ambulatory Berry L Kirit Facility:CD:[id number] Start: 01-10-2024 Telephone encounter Steve ROJO Work Phone: Orthopaedics Start: 01-08-2024 End: 01-11-2024 Evaluation and management of inpatient Lalo Boyd Facility:[facility] Start: 01-08-2024 End: 01-11-2024 Evaluation and management of inpatient Lalo Boyd [facility] Start: 01-07-2024 ambulatory UNIT COORDINATOR Berry Gellerab Facil ity:[facility] Start: 01-04-2024 Evaluation and management of inpatient Andrea DAMON Facility:[facility] Start: 01-04-2024 Emergency department patient visit Naveen Martin Facility:[facility] Start: 01-04-2024 End: 01-07-2024 Evaluation and management of inpatient Andrea DAMON [facility] Start: 01-01-2024 Telephone encounter John toure MD Work Phone: Orthopaedics Comment on above: Patient Update Start: 12-31-2023 End: 12-31-2023 ambulatory UNIT COORDINATOR Berry L Kirit Facility:[facility] [place] Start: 12-29-2023 End: 12-29-2023 Emergency department patient visit Gaston NaomiYury Contreras [facility] Start: 12-27-2023 End: 12-27-2023 ambulatory Albaro Baltazar Facility:[facility] [place] Start: 12-27-2023 End: 12-27-2023 Patient encounter procedure Albaro Baltazar [facility] Start: 12-26-2023 Telephone encounter Louis bynum APRN.QUALITY ASSURANCE SUPERVISOR Work Phone: Pre Anesthesia Comment on above: RINVOQ recommendatio ns for upcoming surgery Start: 12-25-2023 End: 02-20-2024 Telephone encounter Louis Cates APRN.QUALITY ASSURANCE SUPERVISOR Work Phone: Pre Anesthesia Comment on above: Medication Problem Start: 12-20-2023 End: 12-20-2023 Admission to establishment P[facility] 2 Work Phone: Pre Anesthesia Start: 12-20-2023 End: 12-20-2023 Anesthesia consultation [facility] Work Phone: Pre Anesthesia [...] Start: 12-20-2023 End: 12-20-2023 Preprocedural examination done [facility] 2 Work Phone: [facility] Work Phone: Start: 11-27-2023 End: 11-27-2023 ambulatory ARABELLA JEFFREY Facility:[facility] Start: 11-20-2023 Telephone encounter Stevo rosales MD Work Phone: Rheumatology Comment on above: Results (DEXA scan) Start: 11-07-2023 Telephone encounter John toure MD Work Phone: Orthopaedics Comment on above: 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 Start: 11-07-2023 End: 11-07-2023 ambulatory [facility] Work Phone: Start: 11-07-2023 End: 11-07-2023 Patient encounter procedure [facility] Work Phone: Start: 2023 End: 2023 ambulatory Berry Beth Facility:[facility] [place] Start: 11-04-2023 ambulatory Lanny Pérez RN Orth opaedics Start: 11-04-2023 End: 11-04-2023 Patient encounter procedure John Holly MD Work Phone: Orthopaedics Comment on above: Loose orthopedic imp lant, subsequent encounter (Primary Dx); S/P reverse total shoulder arthroplasty, left Start: 10-30-2023 Telephone encounter John toure MD Work Phone: Orthopaedics Comment on above: Results Start: 10-26-2023 ambulatory ALINE MARY ANNJESSICA GUERRERO [facility] ity:[facility] Start: 10-18-2023 End: 10-18-2023 ambulatory Berry Beth Facility:[facility] Start: 10-17-2023 Telephone encounter Stevo [...] 10-05-2023 End: 10-05-2023 ambulatory Rainer Floyd Facility: [place] Start: 10-05-2023 End: 10-05-2023 Patient encounter procedure Rainer Floyd [facility] Start: 10-01-2023 Telephone encounter [...] Stevo Neff MD Work Phone: [facility] Start: 09-27-2023 ambulatory ALINE GUERRERO [facility] Start: 09-18-2023 End: 09-18-2023 ambulatory Berry Beth Facility:[facility] Start: 09-14-2023 End: 09-14-2023 ambulatory MAKEDA Stanton Facility: [place] Start: 09-14-2023 End: 09-14-2023 Patient encounter procedure Serge SLOAN [facility] Start: 08-02-2023 End: 08-02-2023 ambulatory Berry Beth Facility:[facility] Start: 07-24-2023 End: 07-24-2023 ambulatory MD Aline Guerrero Work Phone: [facility] Work Phone: Start: 07-24-2023 End: 07-24-2023 Discharged Recurring MD Aline Guerrero Work Phone: [facility] Work Phone: Start: 07-24-2023 End: 07-24-2023 Patient encounter procedure MD Aline Guerrero Work Phone: [facility] Start: 07-15-2023 Telephone encounter Naty Carpenter [facility] Start: 07-15-2023 End: 07-15-2023 ambulatory STEVO NEFF [employer] Other Start: 07-15-2023 End: 07-15-2023 Patient encounter procedure STEVO NEFF [facility] Start: 06-28-2023 End: 06-28-2023 ambulatory Berry L Kirit Facility: [facility] Start: 05-20-2023 End: 05-21-2023 ambulatory [facility] Start: 05-10-2023 End: 05-10-2023 ambulatory Berry L Kirit Facility:[facility] [place] Start: 05-07-2023 End: 05-07-2023 ambulatory Teodora A Tru Facility:[facility] Start: 05-03-2023 End: 05-04-2023 ambulatory [facility] Start: 04-23-2023 End: 04-23-2023 ambulatory Berry L [facility]irit [facility] Start: 04-21-2023 Refill Stevo Neff MD Work Phone: Rheumatology Comment on above: Refill Request Start: 04-08-2023 End: 04-08-2023 ambulatory Naty Luke Other [facility] [employer] Other Start: 04-08-2023 Telephone encounter Nbanigel Luke [facility] Start: 04-01-2023 End: 06-17-2024 Telephone encounter Kellie WILDER [facility] Comment on above: surgery Start: 03-20-2023 End: 03-20-2023 ambulatory Berry L Kirit Facility:[facility] Start: 03-14-2023 Telephone encounter Stevo rosales MD Work Phone: Rheumatology Comment on above: Rinvoq prior auth re newal Start: 02-20-2023 ambulatory MEDARDO YEVGENIY [facility] Start: 02-20-2023 End: 02-20-2023 Office outpatient visit 15 minutes Medardo Yevgeniy MEAT TEAM MEMBER-QUALITY ASSURANCE SUPERVISOR Work Phone: [facility] Comment on above: Hx of total knee art hroplasty, right (Primary Dx) Start: 02-20-2023 End: 02-20-2023 Subsequent hospital visit by physician Medardo CASTILLO Work Phone: [facility] Start: 01-14-2023 End: 01-14-2023 ambulatory MD Silvestre Benavides Facility:[facility] Start: 12-05-2022 End: 12-05-2022 Patient encounter procedure Teodora Nigel [facility] Start: 11-19-2022 End: 11-20-2022 ambulatory SILVESTRE BENAVIDES Facility:[facility] Start: 2022 End: 11-06-2022 ambulatory NATY LUKE Facility:[facility] Start: 10-30-2022 End: 10-31-2022 ambulatory SILVESTRE BENAVIDES Facility:[facility] Start: 10-19-2022 End: 10-20-2022 ambulatory SILVESTRE BENAVIDES Facility:[facility] Start: 10-11-2022 End: 10-11-2022 ambulatory Naomie Berry Other [facility] Other Start: 10-11-2022 Telephone encounter Naomie [facility] Start: 10-05-2022 End: 10-05-2022 Departed Referred MD Aline Guerrero Work Phone: [facility] [place] Work Phone: Start: 10-05-2022 End: 10-05-2022 ambulatory MD Aline Guerrero Work Phone: [facility] Other Start: 10-05-2022 Office outpatient vi sit 25 minutes Naomie Berry [facility] Start: 09-15-2022 End: 09-16-2022 ambulatory POLY KAM . Facility:[facility] Start: 09-06-2022 End: 09-07-2022 Emergency department patient visit Shalom [place] [facility] Start: 08-31-2022 End: 08-31-2022 ambulatory Consuelo Rosales Other [facility] Other Start: 08-31-2022 Office outpatient vi sit 25 minutes Consuelo Rosales [facility] Start: 08-27-2022 End: 08-27-2022 ambulatory Naty Luke Other [facility] Other Start: 08-27-2022 Telephone encounter Naty Luke [facility] Start: 08-10-2022 End: 08-11-[address] ALINE GUERRERO . Facility: Start: 07-24-2022 End: 07-24-2022 Patient encounter procedure Serge SLOAN [facility] Start: 07-20-2022 End: 07-20-2022 Patient encounter procedure Serge SLOAN [facility] Start: 07-18-2022 Telephone encounter Stevo rosales MD Work Phone: Rheumatology Comment on above: Medication Problem ( PA for Rinvoq); Medication Authorization Start: 06-06-2022 ambulatory PUJA PENDLETON [facility] Start: 06-06-2022 End: 06-06-2022 Office outpatient visit 15 minutes Puja Pendleton MD Work Phone: [facility] Comment on above: Hx of total knee art hroplasty, right (Primary Dx) Start: 06-04-2022 End: 06-04-2022 Patient encounter procedure Serge SLOAN [facility] Start: 05-26-2022 End: 05-26-2022 ambulatory Naomie Berry Other [facility] Other Start: 05-26-2022 Office outpatient vi sit 15 minutes Naomie Berry [facility] Start: 05-22-2022 ambulatory TONDRA MAPUS Facility:[facility] Start: 05-22-2022 End: 05-22-2022 Observation Andrea Manning MARISOL [facility] Start: 05-21-2022 End: 05-21-2022 Patient encounter procedure Lorene Fong [facility] Start: 05-21-2022 End: 05-21-2022 Patient encounter procedure Flip MONTES [facility] Start: 05-17-2022 End: 05-17-2022 Patient encounter procedure Haim Do [facility] Start: 05-17-2022 Telephone encounter Stevo rosales MD Work Phone: Rheumatology Comment on above: Medication Authoriza tion (Rinvoq-[place]); Insurance Authorization (Prior Auth Delayed: Patient has an authorization for Prolia on file with an outside facility and provider) Start: 05-15-2022 End: 05-15-2022 ambulatory Tondra Mapus Other [facility] Other Start: 05-15-2022 Telephone encounter Tondra Mapus [facility] Start: 05-11-2022 End: 05-11-2022 Patient encounter procedure Teodora Ott [facility] Start: 05-09-2022 Telephone encounter Stevo rosalse MD Work Phone: Rheumatology Comment on above: Results Start: 05-08-2022 Refill Ruthie maza MD Work Phone: Rheumatology Comment on above: Refill Request Start: 05-04-2022 End: 05-04-2022 ambulatory TEE PULIDO Facility:[facility] Start: 05-02-2022 End: 05-02-2022 Patient encounter procedure MD Aline Guerrero Work Phone: [facility] Start: 05-02-2022 End: 05-02-2022 ambulatory MD Aline Guerrero Work Phone: [facility] Work Phone: Start: 05-02-2022 Office outpatient vi sit 15 minutes Naomie Berry [facility] Start: 04-15-2022 Office outpatient vi sit 25 minutes Consuelo Rosales [facility] Start: 04-15-2022 End: 04-15-2022 ambulatory MD Aline Guerrero Work Phone: [facility] Work Phone: Start: 04-15-2022 End: 04-15-2022 Patient encounter procedure MD Aline Guerrero Work Phone: [facility] Start: 04-09-2022 End: 04-09-2022 ambulatory CIARA GALEANO . Facility:[facility] Start: 04-05-2022 End: 04-05-2022 ambulatory Tonia Zavala Other [facility] Other Start: 04-05-2022 Office outpatient vi sit 15 minutes Tonia Zavala [facility] Start: 02-22-2022 End: 03-21-[address] ALINE GUERRERO . 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 Facility:[facility] Start: 12-29-2021 End: 12-30-[address] ALINE GUERRERO . Facility:[facility] Start: 12-20-2021 End: 12-21-[address] ALINE GUERRERO . Facility: Start: 12-15-2021 End: 12-15-2021 ambulatory Consuelo Rosales Other [facility] Other Start: 12-15-2021 Office outpatient vi sit 25 minutes Consuelo Rosales [facility] Start: 11-23-2021 End: 11-23-2021 Patient encounter procedure Teodora Ott [facility] Start: 11-01-2021 (DM) Diabetes Tondra Mapus [facility] Start: 11-01-2021 End: 11-01-2021 ambulatory Tondra Mapus Other [facility] [employer] Other Start: 10-13-2021 End: 10-13-2021 Patient encounter procedure Teodora Ott [facility] Start: 10-07-2021 End: 10-07-2021 Lab Drop off Teodora Ott [facility] Start: 10-04-2021 End: 10-04-2021 Patient encounter procedure Haim Do [facility] Start: 08-28-2021 End: 08-28-2021 ambulatory Tonia Zavala Other [facility] [employer] Other Start: 08-28-2021 Office outpatient vi sit 15 minutes Tonia Zavala [facility] Start: 04-05-2021 (DM) Diabetes Jesus Higgins Jr. [facility] Start: 05-16-2017 End: 05-16-2017 Ambulatory [facility] Start: 05-16-2017 End: 05-16-2017 Ambulatory Shante Kendy Delarosa Work Phone: [facility] Start: 05-14-2017 End: 05-15-2017 Ambulatory [facility] Start: 05-14-2017 End: 05-15-2017 Ambulatory [facility] Start: 05-14-2017 End: 05-15-2017 Ambulatory [facility] Start: 05-14-2017 End: 05-14-2017 Ambulatory [facility] Work Phone: [facility] Nuclear Medicine Start: 05-13-2017 End: 05-17-2017 Ambulatory [facility] Start: 05-13-2017 Patient encounter Shante sales Work Phone: [facility] Preadmission Testing Start: 11-24-2015 End: 11-24-2015 Telephone encounter Katja Adams MEAT TEAM MEMBER.QUALITY ASSURANCE SUPERVISOR Work Phone: Endocrinology Comment on above: Patient [...] Specimen Type: BLOOD SPEC IMEN Ordering Facility: [facility] Address: [address] [place] [address] Performed By: #### T SCR #### [facility]LOOD [facility] CLIA [id number] [address] [place] [address] Start: 03-13-2024 Radiologic examination knee 3 views [...] with white cell differential, automated Medardo Vuong MEAT TEAM MEMBER-QUALITY ASSURANCE SUPERVISOR Work Phone: Start: 01-23-2022 Gluc bld gluc mntr dev cleared fda spec home use Puja Pendleton MD Work Phone: Start: 01-23-2022 Gluc bld gluc mntr dev cleared fda spec home use Puja Pendleton MD Work Phone: Start: 01-23-2022 Radiologic examination knee 1/2 views Medardo Vuong MEAT TEAM MEMBER-QUALITY ASSURANCE SUPERVISOR Work Phone: Start: 01-23-2022 Cul bact paulo [...] Work Phone: Start: 01-27-2010 Colonoscopy Katja Adams MEAT TEAM MEMBER.QUALITY ASSURANCE SUPERVISOR Work Phone: Arthroplasty of knee Haim Do [...] DTaP,Tdap,Td Vaccine (2 - Td or Tdap) [facility] Start: 05-09-2031 Screening for malign ant neoplasm of colon [facility] Start: 02-14-2026 End: 02-14-2026 Patient encounter procedure 02/14/2026 9:00 AM EDT Office Visit Rheumatology [address] [facility] [place] [address] Stevo Neff MD [address] [place] [address] RTC after DXA- 6-12 mo f/u Rheumatology Comment on above: RTC after DXA- 6-12 mo f/u Start: 01-31-2026 End: 01-31-2026 Patient encounter procedure 01/31/2026 11:40 AM EDT Office Visit [facility] [facility] [address] [place] [phone] Adam Hernandez MD [address] [place] [address] [facility] Start: 11-01-2025 End: 11-01-2025 Patient encounter procedure [facility] Start: 05-07-2025 DIABETES SCREEN DIABETES SCREEN [facility] Start: 05-07-2025 Diabetes Screening Diabetes Screenin g [facility] Start: 03-22-2025 End: 03-22-2025 ambulatory 03/22/2025 9:00 AM EDT Results Only [facility] [address] [address] labs [facility] Comment on above: labs Start: 03-18-2025 End: 12-16-2025 25-hydroxyvitamin D3 [Mass/volume] in Serum or Plasma VITAMIN D 25 HYDROXY Lab Routine Vitamin D deficiency Expected: 03/18/2025 (Approximate), Expires: 12/16/2025 [facility] Comment on above: Expected: 03/18/2025 (Approximate), Expires: 12/16/2025 Start: 03-18-2025 End: 12-16-2025 C reactive protein [Mass/volume] in Serum or Plasma C-REACTIVE PROTEIN Lab Routine Elevated sed rate Elevated C-reactive protein (CRP) Expected: 03/18/2025 (Approximate), Expires: 12/16/2025 [facility] Comment on above: Expected: 03/18/2025 (Approximate), Expires: 12/16/2025 Start: 03-18-2025 End: 12-16-2025 CBC panel - Blood by Automated count COMPLETE BLOOD COUNT Lab Routine Anemia of chronic disease Expected: 03/18/2025 (Approximate), Expires: 12/16/2025 [facility] Comment on above: Expected: 03/18/2025 (Approximate), Expires: 12/16/2025 Start: 03-18-2025 End: 12-16-2025 Comprehensive metabolic 2000 panel - Serum or Plasma COMPREHENSIVE METABOLIC PANEL Lab Routine Elevated LFTs Expected: 03/18/2025 (Approximate), Expires: 12/16/2025 [facility] Work Phone: Comment on above: Expected: 03/18/2025 (Approximate), Expires: 12/16/2025 Start: 03-18-2025 End: 12-16-2025 Erythrocyte sedimentation rate SEDIMENTATION RATE, WESTERGREN Lab Routine Elevated sed rate Elevated C-reactive protein (CRP) Expected: 03/18/2025 (Approximate), Expires: 12/16/2025 [facility] Comment on above: Expected: 03/18/2025 (Approximate), Expires: 12/16/2025 Start: 03-01-2025 Influenza vaccination Influenza Vacc ine (#1) [facility] Start: 02-15-2025 End: 02-15-2025 Patient encounter procedure 02/15/2025 7:40 AM EDT Office Visit Rheumatology [address] [place] [address] Stevo Neff MD [address] [place] [address] Just routine and new prescriptions doing good Rheumatology Comment on above: Just routine and new prescriptions doing good Start: 01-04-2025 End: 01-04-2025 Patient encounter procedure 01/04/2025 10:20 AM EDT Office Visit [facility] [address] [place] [phone] Adam Hernandez MD [address] [place] [address] [facility] Start: 12-23-2024 [facility] Start: 11-20-2024 X-ray of left knee, four views XR knee LT 4V* [facility] Start: 11-04-2024 Advance Directive Discussion Advance Directive Discussion [facility] Start: 11-04-2024 Screening for osteoporosis Bone Density Screening [facility] Start: 09-27-2024 Hemoglobin A1c measurement HbA1C [facility] Start: 08-31-2024 End: 08-31-2025 CBC W Auto Differential panel - Blood CBC and differential Lab Routine Pneumonia of left lower lobe due to Streptococcus pneumoniae (CMS/HCC) Recurrent sinus infections Expected: 08/31/2024 (Approximate), Expires: 08/31/2025 [facility] Comment on above: Expected: 08/31/2024 (Approximate), Expires: 08/31/2025 Start: 08-31-2024 End: 08-31-2025 Diphtheria / Tetanus Antibody Panel Diphtheria / Tetanus Antibody Panel Lab Routine Pneumonia of left lower lobe due to Streptococcus pneumoniae (CMS/HCC) Recurrent sinus infections Expected: 08/31/2024 (Approximate), Expires: 08/31/2025 [facility] Comment on above: Expected: 08/31/2024 (Approximate), Expires: 08/31/2025 Start: 08-31-2024 End: 08-31-2025 IgA [Mass/volume] in Serum or Plasma IgA Lab Routine Pneumonia of left lower lobe due to Streptococcus pneumoniae (CMS/HCC) Recurrent sinus infections Expected: 08/31/2024 (Approximate), Expires: 08/31/2025 [facility] Comment on above: Expected: 08/31/2024 (Approximate), Expires: 08/31/2025 Start: 08-31-2024 End: 08-31-2025 IgE [Units/volume] in Serum or Plasma IgE Lab Routine Pneumonia of left lower lobe due to Streptococcus pneumoniae (CMS/HCC) Recurrent sinus infections Expected: 08/31/2024 (Approximate), Expires: 08/31/2025 [facility] Comment on above: Expected: 08/31/2024 (Approximate), Expires: 08/31/2025 Start: 08-31-2024 End: 08-31-2025 IgG [Mass/volume] in Serum or Plasma IgG Lab Routine Pneumonia of left lower lobe due to Streptococcus pneumoniae (CMS/HCC) Recurrent sinus infections Expected: 08/31/2024 (Approximate), Expires: 08/31/2025 [facility] Work Phone: Comment on above: Expected: 08/31/2024 (Approximate), Expires: 08/31/2025 Start: 08-31-2024 End: 08-31-2025 IgM [Mass/volume] in Serum or Plasma IgM Lab Routine Pneumonia of left lower lobe due to Streptococcus pneumoniae (CMS/HCC) Recurrent sinus infections Expected: 08/31/2024 (Approximate), Expires: 08/31/2025 [facility] Comment on above: Expected: 08/31/2024 (Approximate), Expires: 08/31/2025 Start: 08-31-2024 End: 08-31-2025 Tetanus toxoid, IgG Tetanus toxoid, IgG Lab Routine Pneumonia of left lower lobe due to Streptococcus pneumoniae (CMS/HCC) Recurrent sinus infections Expected: 08/31/2024 (Approximate), Expires: 08/31/2025 [facility] Comment on above: Expected: 08/31/2024 (Approximate), Expires: 08/31/2025 Start: 08-31-2024 End: 08-31-2024 Patient encounter procedure 08/31/2024 10:40 AM EST Office Visit [facility] [address] [place] [phone] Adam Hernandez MD [address] [place] [address] Arrived [facility] Comment on above: Arrived Start: 08-04-2024 End: 08-04-2025 25-hydroxyvitamin D3 [Mass/volume] in Serum or Plasma VITAMIN D 25 HYDROXY Lab Routine Vitamin D deficiency Expected: 08/04/2024 (Approximate), Expires: 08/04/2025 [facility] Comment on above: Expected: 08/04/2024 (Approximate), Expires: 08/04/2025 Start: 08-04-2024 End: 08-04-2025 BLOOD TB SCREEN BLOOD TB SCREEN Lab Routine Screening-pulmonary TB Expected: 08/04/2024 (Approximate), Expires: 08/04/2025 [facility] Comment on above: Expected: 08/04/2024 (Approximate), Expires: 08/04/2025 Start: 08-04-2024 End: 08-04-2025 C reactive protein [Mass/volume] in Serum or Plasma C-REACTIVE PROTEIN Lab Routine Elevated sed rate Elevated C-reactive protein (CRP) Expected: 08/04/2024 (Approximate), Expires: 08/04/2025 [facility] Comment on above: Expected: 08/04/2024 (Approximate), Expires: 08/04/2025 Start: 08-04-2024 End: 08-04-2025 CBC panel - Blood by Automated count COMPLETE BLOOD COUNT Lab Routine Anemia of chronic disease Expected: 08/04/2024 (Approximate), Expires: 08/04/2025 [facility] Comment on above: Expected: 08/04/2024 (Approximate), Expires: 08/04/2025 Start: 08-04-2024 End: 08-04-2025 Chronic hepatitis differentiation between hepatitis B and C virus panel - Serum or Plasma HEP REMOTE PANEL BL Lab Routine Elevated LFTs Expected: 08/04/2024 (Approximate), Expires: 08/04/2025 [facility] Comment on above: Expected: 08/04/2024 (Approximate), Expires: 08/04/2025 Start: 08-04-2024 End: 08-04-2025 Comprehensive metabolic 2000 panel - Serum or Plasma COMPREHENSIVE METABOLIC PANEL Lab Routine Elevated LFTs Expected: 08/04/2024 (Approximate), Expires: 08/04/2025 [facility] Work Phone: Comment on above: Expected: 08/04/2024 (Approximate), Expires: 08/04/2025 Start: 08-04-2024 End: 08-04-2025 Erythrocyte sedimentation rate SEDIMENTATION RATE, WESTERGREN Lab Routine Elevated sed rate Elevated C-reactive protein (CRP) Expected: 08/04/2024 (Approximate), Expires: 08/04/2025 [facility] Comment on above: Expected: 08/04/2024 (Approximate), Expires: 08/04/2025 Start: 07-13-2024 End: 07-13-2024 Patient encounter procedure Radiation Oncology Comment on above: SIM - RT LOWER LEG, CONSENT SIGNED SIM RT Lower Leg FATEMEH SIM - RT LOWER LEG E LECTRON SETUP Start: 07-06-2024 End: 07-06-2024 Patient encounter procedure 07/06/2024 12:00 PM EST Office Visit Radiation Oncology [address] [address] Erik Alejandro MD [address] [address] sim Rt lower leg, Consent signed, clinical set-up afterwards Radiation Oncology Comment on above: sim Rt lower leg, Co nsent signed, clinical set-up afterwards Start: 06-20-2024 Hemoglobin A1c measurement HbA1C [facility] Start: 06-15-2024 End: 06-15-2024 Patient encounter procedure 06/15/2024 1:00 PM EST Office Visit Radiation Oncology [address] [address] Erik Alejandro MD [address] [address] Kellie Watson DX: Squamous [...] [address] [place] [phone] Britt Valadez, MEAT TEAM MEMBER-QUALITY ASSURANCE SUPERVISOR [address] [place] [address] [facility] Start: 06-05-2024 End: 06-05-2024 Patient encounter procedure 06/05/2024 1:45 PM EST Office Visit Orthopaedics [address] [place] [address] John Holly MD [address] [place] [address] post op DOS 04/14 Orthopaedics Comment on above: post op DOS 04/14 Start: 06-03-2024 End: 06-03-2024 Patient encounter procedure 06/03/2024 6:30 PM EST Appointment [facility] [place] Scan [address] [place] [address] CT HUMERUS WO [facility] LEFT [facility] Radiology CT Scan Comment on above: CT HUMERUS WO IVCON LEFT Start: 05-27-2024 End: 05-27-2024 Patient encounter procedure 05/27/2024 1:00 PM EST Office Visit Radiation Oncology [address] [place] [address] Tianna Dunham MD [address] [place] [address] Kellie Watson DX: 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, including hip Radiation Oncology Comment on above: Ref by Dr Kellie Cooley tti DX: 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, including hip Start: 05-22-2024 End: 05-22-2024 ambulatory 05/22/2024 4:15 PM EST Results Only [facility] [address] [facility] [address] [place] [facility] Start: 05-21-2024 End: 08-20-2024 CREATININE BLD CREATININE BLD Lab Routine MRSA (methicillin resistant Staphylococcus aureus) Expected: 05/21/2024, Expires: 08/20/2024 [facility] Work Phone: Comment on above: Expected: 05/21/2024 , Expires: 08/20/2024 Start: 05-18-2024 End: 05-18-2024 Patient encounter procedure [facility] Comment on above: left shoulder wound check - ok per lanny Start: 05-04-2024 End: 05-04-2024 Patient encounter procedure 05/04/2024 9:45 AM EST Office Visit [facility] [address] [place] [address] [address] [place] [address] Merline Prieto, DELINQUENT TAX COLLECTION ASSISTANT [address] [facility] [address] [place] [address] Osteoporosis, unspecified osteoporosis type, unspecified pathological fracture presence (CMS/HCC) (Primary Dx) [facility] Comment on above: Osteoporosis, unspec ified osteoporosis type, unspecified pathological fracture presence (CMS/HCC) (Primary Dx) Start: 04-29-2024 End: 04-29-2024 Patient encounter procedure 04/29/2024 11:00 AM EDT Office Visit Orthopaedics [address] [place] [address] [place] [address] [place] [phone] post op DOS 04/14 Orthopaedics Comment on above: post op DOS 04/14 Start: 04-27-2024 End: 04-27-2024 Patient encounter procedure 04/27/2024 8:00 AM EDT Office Visit [facility] [address] [place] [address] [address] [place] [address] Merline Prieto, DELINQUENT TAX COLLECTION ASSISTANT [address] [facility] [address] [place] [address] [facility] Start: 04-22-2024 End: 04-22-2024 Patient encounter procedure Radiology Comment on above: S/P shoulder surgery [Z98.890]; Loose orthopedic implant, subsequent encounter [T84.039D] XR FIRST post op DOS 04/14 Start: 04-14-2024 End: 04-14-2024 Patient encounter procedure 04/14/2024 2:00 PM EDT Office Visit Rheumatology [address] [place], [place] [id number] Stevo Neff MD [address] [place] [address] RA fu OV 6months Rheumatology Comment on [...] 1:40 PM EDT PAT Pre Anesthesia [address] [place] [address] pre op DOS 04/14 Pre Anesthesia Comment on above: pre op DOS 04/14 Start: 03-30-2024 End: 06-29-2024 Hemoglobin A1c in Blood [facility] Work Phone: Comment on above: Expected: 03/30/2024 , Expires: 06/29/2024 Start: 03-25-2024 End: 03-25-2024 Patient encounter procedure 03/25/2024 3:20 PM EDT Office Visit [facility] [address] [place] [address] Adam Hernandez MD [address] [place] [address] [facility] Start: 03-25-2024 End: 03-25-2025 Strep pneumoniae antibody serotypes Strep pneumoniae antibody serotypes Lab Routine 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) Expected: 03/25/2024 (Approximate), Expires: 03/25/2025 [facility] Work Phone: Comment on above: Expected: 03/25/2024 (Approximate), Expires: 03/25/2025 Start: 03-13-2024 End: 06-12-2024 Basic metabolic 2000 panel - Serum or Plasma BASIC METABOLIC PANEL Lab Routine Status post reverse total replacement of left shoulder Expected: 03/13/2024, Expires: 06/12/2024 [facility] Comment on above: Expected: 03/13/2024 , Expires: 06/12/2024 Start: 03-13-2024 End: 06-12-2024 CBC W Auto Differential panel - Blood COMPLETE BLOOD COUNT AND DIFFERENTIAL Lab Routine Status post reverse total replacement of left shoulder Expected: 03/13/2024, Expires: 06/12/2024 [facility] Work Phone: Comment on above: Expected: 03/13/2024 , Expires: 06/12/2024 Start: 03-13-2024 End: 03-13-2024 Patient encounter procedure 03/13/2024 8:15 AM EDT Office Visit [facility] [address] [place] [address] Louis Cortez DO [address] [place] [address] [facility] Start: 03-11-2024 End: 03-11-2024 Patient encounter procedure 03/11/2024 8:00 AM EDT Office Visit Orthopaedics [address] [place] [address] Steve Gambino PA [address] [id number] POST OP Orthopaedics Comment on above: POST OP Start: 03-01-2024 Covid-19 Vaccine () Covid-19 Vaccine () [facility] Start: 03-01-2024 Covid-19 Vaccine ( season) Covid-19 Vaccine ( season) [facility] Start: 03-01-2024 Influenza vaccination [facility] Start: 02-12-2024 End: 02-12-2024 Patient encounter procedure 02/12/2024 11:00 AM EDT Office Visit Orthopaedics [address] [place] [address] Steve Gambino PA [address] [address] post op DOS 01/27 Orthopaedics Comment on above: post op DOS 01/27 Start: 02-07-2024 End: 05-08-2024 Basic metabolic 2000 panel - Serum or Plasma BASIC METABOLIC PANEL Lab Routine 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 orthopedic implant, initial encounter (HCC) Loose orthopedic implant, subsequent encounter Expected: 02/07/2024, Expires: 05/08/2024 [facility] Work Phone: Comment on above: Expected: 02/07/2024 , Expires: 05/08/2024 Start: 01-28-2024 End: 01-28-2024 Admission to same day surgery center 01/28/2024 7:45 AM EDT - 01/28/2024 1:25 PM EDT Surgery Admitting [address] [place] [address] John Holly MD [address] [place] [place], [place] [phone] REMOVAL IMPLANT DEEP Admitting Comment on above: REMOVAL IMPLANT DEEP Start: 01-28-2024 End: 01-28-2024 Removal implant deep REMOVAL IMPLANT DEEP 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 orthopedic implant, initial encounter (HCC) 01/28/2024 7:45 AM EDT [facility] Start: 01-28-2024 Subsequent hospital visit by physician 01/28/2024 7:45 AM EDT Hospital Encounter Admitting [address] [place] [address] John Holly MD [address] [place], [place] [id number] 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] Admitting Comment on above: 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] Start: 01-28-2024 End: 01-28-2024 Unlisted procedure shoulder INSERT CEMENT SPACER SHOULDER 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 orthopedic implant, initial encounter ([facility]) 01/28/2024 7:45 AM EDT [facility] Start: 01-20-2024 End: 01-20-2024 Patient encounter procedure 01/20/2024 10:00 AM EDT Office Visit Orthopaedics [address] [place], [place] [id number] Steve Gambino PA [address] [place] [phone] post op DOS 01/06 Orthopaedics Comment on [...] left shoulder Failed orthopedic implant, initial encounter ([facility]) 01/07/2024 10:45 AM EDT [facility] Start: 01-07-2024 End: 01-07-2024 Marvin shoulder arthrplsty humeral&glenoid compnt REVISE TOTAL SHOULDER ARTHROPLASTY INCL ALLOGRAFT WHEN PERFORMED HUMERAL AND GLENOID COMPONENT 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 orthopedic implant, initial encounter ([facility]) 01/07/2024 10:45 AM EDT [facility] Start: 01-07-2024 Subsequent hospital visit by physician Admitting Comment on above: 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] Start: 01-07-2024 End: 01-07-2024 Unlisted procedure shoulder INSERT CEMENT SPACER SHOULDER 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 orthopedic implant, initial encounter ([facility]) 01/07/2024 10:45 AM EDT [facility] Start: 12-20-2023 End: 03-20-2024 Hemoglobin A1c in Blood [facility] Work Phone: Comment on above: Expected: 12/20/2023 , Expires: 03/20/2024 Start: 12-20-2023 End: 03-20-2024 STAPHYLOCOCCUS AUREUS & MRSA SCREEN, PCR, NASAL [facility] Comment on above: Expected: 12/20/2023 , Expires: 03/20/2024 Start: 12-18-2023 End: 12-18-2023 Anesthesia consultation 12/18/2023 1:00 PM EDT PAT Pre Anesthesia [address] [place] [place] [address] 2, [place] [address] [place] [address] pre op DOS 7/9 Pre Anesthesia Comment on above: pre op DOS 7/9 Start: 11-04-2023 End: 02-03-2024 Basic metabolic 2000 panel - Serum or Plasma BASIC METABOLIC PANEL Lab Routine 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 orthopedic implant, initial encounter ([facility]) Expected: 11/04/2023, Expires: 02/03/2024 [facility] Comment on above: Expected: 11/04/2023 , Expires: 02/03/2024 Start: 11-04-2023 End: 02-03-2024 CBC W Auto Differential panel - Blood COMPLETE BLOOD COUNT AND DIFFERENTIAL Lab Routine 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 orthopedic implant, initial encounter ([facility]) Expected: 11/04/2023, Expires: 02/03/2024 [facility] Work Phone: Comment on above: Expected: 11/04/2023 , Expires: 02/03/2024 Start: 11-04-2023 End: 11-04-2023 Patient encounter procedure 11/04/2023 9:00 AM EDT Office Visit Orthopaedics [address] [address] John Holly MD [address] [place], [place] [id number] left shoulder pain/ discuss shoulder revision Orthopaedics Comment on above: left shoulder pain/ discuss shoulder revision Start: 10-26-2023 End: 10-26-2023 Patient encounter procedure 10/26/2023 8:30 AM EDT Appointment [facility] [facility] [place] [id number] [place] [address] Left shoulder [facility] CT Scan Comment on above: Left shoulder Start: 10-14-2023 End: 01-13-2024 Bacteria identified in Body fluid by Culture [facility] Work Phone: Comment on above: Expected: 10/14/2023 , Expires: 01/13/2024 Start: 10-14-2023 End: 01-13-2024 CBC W Auto Differential panel - Blood COMPLETE BLOOD COUNT AND DIFFERENTIAL Lab Routine Status post reverse total replacement of left shoulder Expected: 10/14/2023, Expires: 01/13/2024 [facility] Work Phone: Comment on above: Expected: 10/14/2023 , Expires: 01/13/2024 Start: 10-02-2023 End: 10-02-2023 Patient encounter procedure 10/02/2023 8:00 AM EDT Office Visit [facility] [address] [place] [address] Merline Prieto NP [address] [place] [address] [facility] Start: 09-25-2023 End: 09-25-2023 Patient encounter procedure 09/25/2023 7:30 AM EDT Procedure Visit [facility] S[place]ia Grande, [address] [place] [address] [facility] Start: 09-17-2023 End: 09-17-2023 Patient encounter procedure 09/17/2023 1:30 PM EDT Office Visit [facility] [address] [place] [address] Rosa Dunbar DO [address] [place] [address] [facility] Start: 09-11-2023 End: 09-11-2023 Patient encounter procedure 09/11/2023 7:30 AM EDT Procedure Visit [facility] Sintia Grande, DO [address] [place] [address] [facility] Start: 07-01-2023 Behavioral Health Screening Behavioral Health Screening [facility] Start: 07-01-2023 Depression Assessment Depression Ass essment [facility] Start: 04-19-2023 Screening for malign ant neoplasm of cervix [facility] Start: 03-01-2023 Covid-19 Vaccine ( season) Covid-19 Vaccine ( season) [facility] Start: 03-01-2023 Covid-19 Vaccine () Covid-19 Vaccine () [facility] Start: 03-01-2023 Influenza vaccination INFLUENZA VACC INE (#1) [facility] Start: 01-31-2023 End: 01-31-2023 Patient encounter procedure 01/31/2023 Office Visit Orthopaedics Medardo Vuong, MEAT TEAM MEMBER-QUALITY ASSURANCE SUPERVISOR [address] [place] [address] [facility] Start: 10-05-2022 Bacteria identified in Urine by Culture [facility] Start: 08-09-2022 End: 05-09-2023 25-hydroxyvitamin D3 [Mass/volume] in Serum or Plasma VITAMIN D 25 HYDROXY Lab Routine Vitamin D deficiency Expected: 08/09/2022 (Approximate), Expires: 05/09/2023 [facility] Work Phone: Comment on above: Expected: 08/09/2022 (Approximate), Expires: 05/09/2023 Start: 08-09-2022 End: 05-09-2023 C reactive protein [Mass/volume] in Serum or Plasma C-REACTIVE PROTEIN (CRP) Lab Routine Elevated sed rate Elevated C-reactive protein (CRP) Expected: 08/09/2022 (Approximate), Expires: 05/09/2023 [facility] Work Phone: Comment on above: Expected: 08/09/2022 (Approximate), Expires: 05/09/2023 Start: 08-09-2022 End: 05-09-2023 CBC panel - Blood by Automated count CBC Lab Routine Anemia of chronic disease Expected: 08/09/2022 (Approximate), Expires: 05/09/2023 [facility] Work Phone: Comment on above: Expected: 08/09/2022 (Approximate), Expires: 05/09/2023 Start: 08-09-2022 End: 05-09-2023 Comprehensive metabolic 2000 panel - Serum or Plasma COMP METABOLIC PANEL Lab Routine Elevated LFTs Expected: 08/09/2022 (Approximate), Expires: 05/09/2023 [facility] Work Phone: Comment on above: Expected: 08/09/2022 (Approximate), Expires: 05/09/2023 Start: 08-09-2022 End: 05-09-2023 Erythrocyte sedimentation rate SED RATE WESTERGREN Lab Routine Elevated sed rate Elevated C-reactive protein (CRP) Expected: 08/09/2022 (Approximate), Expires: 05/09/2023 [facility] Work Phone: Comment on above: Expected: 08/09/2022 (Approximate), Expires: 05/09/2023 Start: 07-21-2022 Hemoglobin A1c measurement HbA1C [facility] Start: 07-01-2022 DEPRESSION ASSESSMENT DEPRESSION ASS ESSMENT [facility] Start: 05-30-2022 End: 05-30-2022 Patient encounter procedure 05/30/2022 Office Visit Orthopaedics Puja Pendleton MD [address] [place] [address] [facility] Start: 03-01-2022 Influenza vaccination [facility] Start: 02-15-2022 End: 02-15-2022 Patient encounter procedure 02/15/2022 Office Visit Orthopaedics Medardo Vuong, MEAT TEAM MEMBER-QUALITY ASSURANCE SUPERVISOR [address] [place] [address] [facility] Start: 07-01-2021 DEPRESSION ASSESSMENT DEPRESSION ASS ESSMENT [facility] Start: 06-01-2021 Screening for malign ant neoplasm of breast [facility] Start: 03-01-2021 Influenza vaccination INFLUENZ A (Season Ended) [facility] Start: 10-21-2020 COVID-19 VACCINE (3 - Pfizer risk series) COVID-19 VACCINE (3 - Pfizer risk series) [facility] Start: 2019 RSV Vaccine (1 - 1-d ose 60+ series) RSV Vaccine (1 - 1-dose 60+ series) [facility] Start: 05-26-2019 Pneumococcal vaccination Pneum ococcal Vaccine (3 of 3 - PCV) [facility] Start: 05-16-2017 Ambulatory [facility] Start: 05-15-2017 Ambulatory 05/15/2017 Ane sthesia Event Larisa Javier, DO [address] [address] [phone] [facility] Start: 03-01-2017 Influenza vaccination SEQUENTI AL INFLUENZA VACCINE (#1) [facility] Work Phone: Start: 01-27-2017 DIABETES SCREEN DIABETES SCREEN [facility] Start: 01-27-2017 PAP TESTING PAP TESTING [facility] Start: 01-27-2017 Screening for malign ant neoplasm of cervix Pap Testing [facility] Start: 01-27-2013 Screening for malign ant neoplasm of cervix Cervical Cancer Screening [facility] Start: 01-27-2011 Colonoscopy COLONOSCOPY [facility] Start: 01-27-2011 COLORECTAL CANCER SCREENING COLORECTAL CANCER SCREENING [facility] Start: 01-27-2011 Screening for malign ant neoplasm of colon [facility] Start: 11-04-2009 Screening for malign ant neoplasm of colon [facility] Start: 11-04-2009 SHINGRIX VACCINE (1 of 2) SHINGRIX VACCINE (1 of 2) [facility] Start: 11-04-2009 Zoster vaccine hzv l sandra for subcutaneous use ZOSTER (SHINGLES) VACCINE (1 of 2) [facility] Start: 11-04-2004 COLOGUARD (FIT-DNA) COLOGUARD (FIT-D NA) [facility] Start: 11-04-2004 Colonoscopy COLORECTAL CAN CER SCREENING DISCUSSION [facility] Start: 11-04-[address] COLONOGRAPHY [facility] Start: 11-04-2004 FECAL OCCULT BLOOD FECAL OCCULT BLOO D [facility] Start: 11-04-2004 Lipid 1996 panel - S tea or Plasma Lipid Screening [facility] Start: 11-04-2004 Lipid panel Lipid Screening [facility] Start: 11-04-2004 LIPID SCREEN LIPID SCREEN [facility] Start: 11-04-2004 Screening for malign ant neoplasm of colon [facility] Start: 11-04-2004 SIGMOIDOSCOPY SIGMOIDOSCOPY [facility] Start: 1999 Fasting lipid profile LIPID SCREENIN G [facility] Start: 1999 Lipid panel LIPID SCREENING [facility] Start: 1999 Mammography [facility] Start: 1999 Screening for malign ant neoplasm of breast MAMMOGRAM SCREENING DISCUSSION [facility] Start: 1999 Screening mammography MAMMOGRA M SCREENING DISCUSSION [facility] Start: 11-04-1989 HPV TESTING HPV TESTING [facility] Start: 11-04-1989 Screening for malign ant neoplasm of cervix [facility] Start: 11-04-1980 Screening for malign ant neoplasm of cervix [facility] Start: 11-04-1978 SHINGRIX VACCINE (1 of 2) SHINGRIX VACCINE (1 of 2) [facility] Start: 11-04-1978 Third diphtheria, tetanus and acellular pertussis (DTaP) vaccination TDAP (ADULT) [facility] Start: 11-04-1978 Urine microalbumin profile [facility] Start: 11-04-1977 ANNUAL PCP TEAM SLIP COVER MAKER HILDA DISEASE VISIT ANNUAL PCP TEAM CHRONIC DISEASE VISIT [facility] Start: 11-04-1977 Anxiety Screening Anxiety Screening [facility] Start: 11-04-1977 Depression Screening Depression Scre ening [facility] Start: 11-04-1977 Hepatitis B surface antibody level LDL Cholesterol [facility] Start: 11-04-1977 HEPATITIS C SCREENING HEPATITIS C SC REENING [facility] Start: 11-04-1977 HIV SCREENING HIV SCREENING [facility] Start: 11-04-1977 HIV screening HIV Screening [facility] Start: 11-04-1977 Spirometry Spirometry [facility] Start: 11-04-1977 Tetanus vaccination TETANUS [facility] Start: 11-04-1974 HIV screening HIV SCREENING DISCUSSION [facility] Start: 1971 Adult depression screening assessment DEPRESSION SCREENING [facility] Start: 11-04-1969 Diabetic foot examination (regime/therapy) [facility] Start: 11-04-1969 Glaucoma screening Dilated Retinal E xam [facility] Start: 11-04-1969 Hepatitis B screening Urine Albumin:Creatinine Ratio [facility] Start: 11-04-1969 Ophthalmic examinati on and evaluation OPHTHALMOLOGY EXAM [facility] Work Phone: Start: 11-04-1969 Urine, microalbumin URINE MICROALBUM IN [facility] Work Phone: Start: 11-04-1965 PNEUMOCOCCAL (1 - PCV) PNEUMOCOCCAL (1 - PCV) [facility] Start: 11-04-1965 Pneumococcal vaccination Pneum ococcal Vaccine (1 - PCV) [facility] Start: 05-07-1960 COVID-19 VACCINE (#1) COVID-19 VACCI NE (#1) [facility] Start: 1959 Hepatitis C antibody , confirmatory test HEPATITIS C VIRUS SCREENING [facility] Start: 1959 Hepatitis C screening HEPATITI S C VIRUS SCREENING [facility] Start: 1959 Screening for malign ant neoplasm of colon [facility] Start: 1959 Thyroid stimulating hormone measurement TSH [facility] Start: 1959 Hemoglobin A1c/Hemoglobin.total mass fraction (Bld) HEMOGLOBIN A1C [facility] Work Phone: Start: 1959 HEPATITIS C SCREENING HEPATITIS C SC REENING [facility] Work Phone: Start: 1959 Screening colonoscopy COLONOSCOPY [facility] Work Phone: Start: 1959 Screening for malign ant neoplasm of cervix PAP SMEAR [facility] Work Phone: Start: 1959 End: 1959 Tetanus vaccination [facility] Aerobic culture Aerobic culture Microbiology Timed Impetigo Release Upon Ordering for 1 Occurrences starting 05/11/2024 [facility] Work Phone: Comment on above: Release Upon Orderin g for 1 Occurrences starting 05/11/2024 ANAEROBE CULTURE ANAEROBE CULTUR E Microbiology Routine 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, initial encounter Release Upon Ordering for 1 Occurrences starting 01/23/2022 [facility] Comment on above: Release Upon Orderin g for 1 Occurrences starting 01/23/2022 ANAEROBE CULTURE ANAEROBE CULTUR E Microbiology Routine 01/23/2022 12:35 PM EDT [facility] Bacteria identified in Unspecified specimen by Culture BACTERIAL CULTURE AND DIRECT SMEAR, LESION, TISSUE, DEVICE Microbiology Routine 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, initial encounter Release Upon Ordering for 1 Occurrences starting 01/23/2022 [facility] Comment on above: Release Upon Orderin g for 1 Occurrences starting 01/23/2022 End: 03-17-2026 BD DXA TRABECULAR BONE SCORE (TBS) BD DXA TRABECULAR BONE SCORE (TBS) Radiology Routine Postmenopausal osteoporosis of multiple sites 1 Occurrences starting 02/15/2025 until 03/17/2026 [facility] Comment on above: 1 Occurrences starti ng 02/15/2025 until 03/17/2026 Comprehensive metabo lic 2000 panel - Serum or Plasma [facility] End: 11-12-2024 CT Shoulder - left WO contrast CT SHOULDER WO IVCON LEFT Radiology Routine Status post reverse total replacement of left shoulder 1 Occurrences starting 10/14/2023 until 11/12/2024 [facility] Work Phone: Comment on above: 1 Occurrences starti ng 10/14/2023 until 11/12/2024 End: 06-17-2025 CT Upper arm - left WO contrast CT HUMERUS WO IVCON LEFT Radiology Routine 1 Occurrences starting 05/18/2024 until 06/17/2025 [facility] Work Phone: Comment on above: 1 Occurrences starti ng 05/18/2024 until 06/17/2025 End: 03-17-2026 DXA Skeletal system.axial Views for bone density DXA-AXIAL SKELETON Radiology Routine Postmenopausal osteoporosis of multiple sites 1 Occurrences starting 02/15/2025 until 03/17/2026 [facility] Comment on above: 1 Occurrences starti ng 02/15/2025 until 03/17/2026 End: 03-17-2026 DXA-FOREARM SKELETON DXA-FOREARM SKELETON Radiology Routine Postmenopausal osteoporosis of multiple sites 1 Occurrences starting 02/15/2025 until 03/17/2026 [facility] Work Phone: Comment on above: 1 Occurrences starti ng 02/15/2025 until 03/17/2026 ECG COMPLETE [facility] demetrio Comment on above: Ordered: 12/20/2023 End: 06-05-2025 EMG(NEURO/NI) EMG(NEURO/NI) EMG Routine Failed orthopedic implant, subsequent encounter 1 Occurrences starting 06/05/2024 until 06/05/2025 [facility] Work Phone: Comment on above: 1 Occurrences starti ng 06/05/2024 until 06/05/2025 Fungus identified in Unspecified specimen by Culture FUNGUS CULTURE Microbiology Routine 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, initial encounter Release Upon Ordering for 1 Occurrences starting 01/23/2022 [employer] [facility] Comment on above: Release Upon Orderin g for 1 Occurrences starting 01/23/2022 Fungus identified in Unspecified specimen by Culture FUNGUS CULTURE Microbiology Routine 01/23/2022 12:35 PM ED [employer] non-biodegradab le drug delivery implant INSERTION DRUG-DELIVERY IMPLANT UPPER EXTREMITY 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 orthopedic implant, initial encounter ([facility]) Loose orthopedic implant, subsequent encounter [facility] 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 by Organism specific culture ACID FAST CULTURE, TISSUE Microbiology Routine 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, initial encounter Release Upon Ordering for 1 Occurrences starting 01/23/2022 [employer] [facility] Comment on above: Release Upon Orderin g for 1 Occurrences starting 01/23/2022 Mycobacterium sp identified in Unspecified specimen by Organism specific culture ACID FAST CULTURE Microbiology Routine 01/23/2022 12:35 PM EDT [employer] [facility] Radiography for bone length studies XR BONE LENGTH STUDY Imaging Routine Right knee pain, unspecified chronicity 01/11/2022 10:31 AM ED [employer] [facility] Radiography for bone length studies XR BONE LENGTH STUDY Imaging Routine Hx of total knee arthroplasty, right 06/06/2022 4:09 PM [facility] [employer] [facility] Removal implant deep REMOVAL IMP LANT DEEP 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 orthopedic implant, initial encounter ([facility]) Loose orthopedic implant, subsequent encounter [facility] Marvin shoulder arthrplsty humeral&glenoid compnt REVISE TOTAL SHOULDER ARTHROPLASTY INCL ALLOGRAFT WHEN PERFORMED HUMERAL AND GLENOID COMPONENT 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 orthopedic implant, initial encounter ([facility]) [facility] STREPTOCOCCUS PNEUMO BONNIE AB (IGG) (23 SEROTYPES) STREPTOCOCCUS PNEUMONIA AB (IGG) (23 SEROTYPES) Lab Routine Pneumonia of left lower lobe due to Streptococcus pneumoniae ([facility]) Recurrent sinus infections Ordered: 08/31/2024 [id number] Comment on above: Ordered: 08/31/2024 TISSUE CULTURE TISSUE CULTURE Microbiology Routine 01/23/2022 12:35 PM EDT [employer] XR Knee - left 4 Views [facility] XR Knee - right 3 Views XR KNEE RIGHT 3 VIEWS Imaging Routine Right knee pain, unspecified chronicity 01/11/2022 10:31 AM EDT [employer] XR Knee - right 3 Views XR KNEE RIGHT 3 VIEWS Imaging Routine Hx of total knee arthroplasty, right 02/15/2022 2:08 PM EDT [employer] XR Knee - right 3 Views XR KNEE RIGHT 3 VIEWS Imaging Routine Hx of total knee arthroplasty, right 06/06/2022 4:09 PM EST [employer] [facility] XR Knee - right 3 Views XR KNEE RIGHT 3 VIEWS Imaging Routine Hx of total knee arthroplasty, right 02/20/2023 2:27 PM EDT [employer] [facility] XR Knee - right 3 Views XR knee 3 views right Imaging Routine Chronic pain of right knee 03/13/2024 8:03 AM EDT [employer] Work Phone: End: 11-07-2024 XR Shoulder - left 3 Views XR SHOULDER GENERAL 3V OR MORE AP/TRUE AP/OTHER LEFT Radiology Routine Left shoulder pain, unspecified chronicity 1 Occurrences starting 10/09/2023 until 11/07/2024 [facility] Work Phone: Comment on above: 1 Occurrences starti ng 10/09/2023 until 11/07/2024 End: 06-12-2025 XR Shoulder - left 3 Views XR SHOULDER GENERAL 3V OR MORE AP/TRUE AP/OTHER LEFT Radiology Routine S/P shoulder surgery 1 Occurrences starting 05/13/2024 until 06/12/2025 [facility] Work Phone: Comment on above: 1 Occurrences starti ng 05/13/2024 until 06/12/2025 [facility] Immunizations Immunization Date Immunization Notes Care Provider Tayo sullivan 03-12-2025 tetanus toxoid, redu audra diphtheria toxoid, and acellular pertussis vaccine, adsorbed 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 Work Phone: [facility] 05-15-2024 influenza virus vaccine, unspecified formulation Oswald Curry [facility] 03-26-2024 pneumococcal polysaccharide vaccine, 23 valent Merline Prieto NP Work Phone: [facility] 06-07-2023 pneumococcal 20-francisco nt conjugate vaccine Rainer Floyd [facility] 06-04-2023 pneumococcal conjuga te 20-valent (Prevnar 20) 0.5 ML vaccine Adam Hernandez MD Work Phone: [facility] 05-14-2023 influenza virus vaccine, unspecified formulation Rainer Floyd [facility] 07-24-2022 influenza virus vaccine, unspecified formulation Sh[facility] 07-24-2022 influenza, injectabl e, quadrivalent, preservative free Sintia Grande DO Work Phone: [facility] 07-24-2022 Moderna SARS-CoV-2 50mcg/0.5mL Booster Sintia Grande DO Work Phone: [facility] 07-24-2022 SARS-CoV-2 (COVID-19 ) [id number] [facility] 11-17-2021 SARS-CoV-2 mRNA (weybwclqlru-htcm-nppms se) vaccine Teodora Ott [facility] 06-09-2021 SARS-CoV-2 (COVID-19 ) mRNA BNT-162b2 vax Teodora Currymetz [facility] 05-10-2021 influenza, high dose seasonal, preservative-free Sintia Zahler DO Work Phone: [facility] 05-10-2021 influenza virus vaccine, unspecified formulation Puja Pendleton MD Work Phone: [facility] 05-01-2021 influenza virus vaccine, unspecified formulation Haim Mendezyasmeen [facility] 04-27-2021 influenza virus vaccine, unspecified formulation Teodora Currymetz [facility] 04-27-2021 influenza, injectabl e, quadrivalent, preservative free Sintia Zahler DO Work Phone: [facility] 09-23-2020 COVID-19, mRNA, LNP- S, PF, 30 mcg/0.3 mL dose; Translations: [Pfizer-BioNTech COVID-19 Vaccine] [facility] Comment on above: Reason for Medicatio n: Prophylaxis 09-02-2020 COVID-19, mRNA, LNP- S, PF, 30 mcg/0.3 mL dose; Translations: [Pfizer-BioNTech COVID-19 Vaccine] [facility] Comment on above: Reason for Medicatio n: Prophylaxis 04-14-2020 influenza virus vaccine, unspecified formulation Teodora Tru [facility] 04-14-2020 Influenza, injectabl e, Madin Briana Canine Kidney, preservative free, quadrivalent Sintia Zahler DO Work Phone: [facility] 04-04-2020 influenza, high dose seasonal, preservative-free Sintia Zahler DO Work Phone: [facility] 04-04-2020 influenza, unspecifi ed formulation Rainer Floyd [facility] 03-18-2019 influenza, injectabl e, quadrivalent, preservative free Sintia Zahler DO Work Phone: [facility] 03-18-2019 influenza, unspecifi ed formulation Rainer Floyd [facility] 03-02-2019 influenza virus vaccine, unspecified formulation Teodora Tru [facility] 03-02-2019 influenza, injectabl e, quadrivalent, preservative free Sintia Zahler DO Work Phone: [facility] 02-24-2019 influenza virus vaccine, unspecified formulation Teodora Tru [facility] 02-24-2019 influenza, injectabl e, quadrivalent, preservative free Sintia Zahler DO Work Phone: [facility] 05-26-2018 pneumococcal polysaccharide vaccine, 23 valent Teodora Tru [facility] 03-13-2018 pneumococcal polysaccharide vaccine, 23 valent Teodora Tru [facility] 03-26-2017 influenza virus vaccine, unspecified formulation Teodora Tru [facility] 03-26-2017 influenza, injectabl e, quadrivalent, preservative free Sintia Zahler DO Work Phone: [facility] 03-20-2016 influenza virus vaccine, unspecified formulation Toedora Tru [facility] 03-20-2016 influenza, injectabl e, quadrivalent, preservative free Sintia Zahler DO Work Phone: [facility] 04-27-2014 influenza virus vaccine, unspecified formulation Teodora Tru [facility] 04-27-2014 influenza, seasonal, injectable, preservative free Sintia Grande DO Work Phone: [facility] 05-07-2013 influenza virus vaccine, unspecified formulation Teodora Ott [facility] 05-07-2013 influenza, seasonal, injectable Sintia Grande DO Work Phone: [facility] NEGATED: Highlighted row has not occurred!05-03-2023 influenza virus vaccine, unspecified formulation STEVO NEFF [facility] NEGATED: Highlighted row has not occurred!05-11-2022 influenza virus vaccine, unspecified formulation Teodora Ott [facility] NEGATED: Highlighted row has not occurred!04-24-2021 influenza virus vaccine, unspecified formulation Haim Hi [facility] Payers Date Payer Category Payer Self-pay [id number] 2020 [employer] [id number] 2020 Unknown [id number]. [id number] 2018 Unknown [id number] 2015 Private Health Insurance [facility] CHOICE [id number] 2015-2019 [id number] 1959 Unknown [id number] 2.16.840.1.549024.3.579.2. 593 1959 Unknown [id number] 2.16.840.1.454710.3.579.2. 593 1959 Unknown [id number] 2.16.840.1.002548.3.579.2. 593 1959 Unknown [id number] 2.16.840.1.538779.3.579.2. 593 1959 Unknown [id number] 2.16.840.1.716720.3.579.2. 593 1959 Unknown [id number] 2.16.840.1.351224.3.579.2. 593 1959 Unknown [id number] 2.16.840.1.144843.3.579.2. 593 1959 Unknown [id number] 2.16.840.1.739853.3.579.2. 593 1959 Unknown [id number] 2.16.840.1.739183.3.579.2. 593 1959 Unknown [id number] 2.16.840.1.880439.3.579.2. 593 1959 Unknown [id number] 2.16.840.1.640300.3.579.2. 593 1959 Unknown [id number] 2.16.840.1.511427.3.579.2. 593 1959 Unknown [id number] 2.16.840.1.632617.3.579.2. 593 1959 Unknown [id number] 2.16.840.1.141647.3.579.2. 593 1959 Unknown [id number] 2.16.840.1.026918.3.579.2. 983 1959 Unknown [id number] 2.16.840.1.514244.3.579.2. 983 1959 Unknown [id number] 2.16.840.1.552537.3.579.2. 983 1959 Unknown [id number] 2.16.840.1.194518.3.579.2. 983 1959 Unknown [id number] 2.16.840.1.136565.3.579.2. 8 1959 Unknown [id number] 2.16.840.1.729478.3.579.2. 8 1959 Unknown [id number] 2.16.840.1.219235.3.579.2. 1286 1959 Unknown [id number] 2.16.840.1.567820.3.579.2. 1959 Unknown [id number] 2.16.840.1.752141.3.579.2. 1959 Unknown [id number] 2.16.840.1.983670.3.579.2 1959 Unknown [id number] 2.16.840.1.094352.3.579.2. 1959 Unknown [id number] 2.16.840.1.268686.3.579.2 1959 Unknown [id number] 2.16.840.1.892457.3.579.2. 1959 Unknown [id number] 2.16.840.1.749472.3.579.2. 1959 Unknown [id number] 2.16.840.1.009467.3.579.2. 1959 Unknown [id number] 2.16.840.1.540507.3.579.2. 1959 Unknown [id number] 2.16.840.1.179516.3.579.2 1959 Unknown [id number] 2.16.840.1.254981.3.579.2. 1959 Unknown [id number] 2.16.840.1.929218.3.579.2 1959 Unknown [id number] 2.16.840.1.101203.3.579.2 1959 Unknown [id number] 2.16.840.1.211204.3.579.2 1959 Unknown [id number] 2.16.840.1.022173.3.579.2 1959 Unknown [id number] 2.16.840.1.242161.3.579.2 1959 Unknown [id number] 2.16.840.1.628529.3.579.2 1959 Unknown [id number] 2.16.840.1.526943.3.579. 1959 Unknown [id number] 2.16.840.1.988111.3.579. 1959 Unknown [id number] 2.16.840.1.369138.3.579. 1959 Unknown [id number] 2.16.840.1.661479.3.579. 1959 Unknown [id number] 2.16.840.1.032240.3.579. 1959 Unknown [id number] 2.16.840.1.788030.3.579.2 1959 Unknown [id number] 2.16.840.1.222495.3.579.2 1959 Unknown [id number] 2.16.840.1.572692.3.579.2 1959 Unknown [id number] 2.16.840.1.491598.3.579.2 1959 Unknown [id number] 2.16.840.1.549592.3.579.2 1959 Unknown [id number] 2.16.840.1.575169.3.579.2 1959 Unknown [id number] 2.16.840.1.885804.3.579.2. 1959 Unknown [id number] 2.16.840.1.055306.3.579.2. 1959 Unknown [id number] 2.16.840.1.715837.3.579.2. 1959 Unknown [id number] 2.16.840.1.536335.3.579.2. 1959 Unknown [id number] 2.16.840.1.813796.3.579.2. 1959 Unknown [id number] 2.16.840.1.815233.3.579.2. 1959 Unknown [id number] 2.16.840.1.381623.3.579.2. 1959 Unknown [id number] 2.16.840.1.506609.3.579.2. 1959 Unknown [id number] 2.16.840.1.365380.3.579.2. 1959 Unknown [id number] 2.16.840.1.109171.3.579.2 1959 Unknown [id number] 2.16.840.1.803565.3.579.2. 1959 Unknown [id number] 2.16.840.1.709125.3.579.2. 1959 Unknown [id number] 2.16.840.1.095718.3.579.2. 1959 Unknown [id number] 2.16.840.1.239699.3.579.2. 1959 Unknown [id number] 2.16.840.1.425934.3.579.2. 1285 1959 Unknown [id number] 2.16.840.1.317043.3.579.2. 12851960 Unknown [id number] 2.16.840.1.606441.3.579.2. 1959 Unknown [id number] 2.16.840.1.347114.3.579.2. 1959 Unknown [id number] 2.16.840.1.592084.3.579.2. 1959 Unknown [id number] 2.16.840.1.733325.3.579.2. 1959 Unknown [id number] 2.16.840.1.923805.3.579.2. 1959 Unknown [id number] 2.16.840.1.866638.3.579.2. 1959 Unknown [id number] 2.16.840.1.967569.3.579.2. 1959 Unknown [id number] 2.16.840.1.736277.3.579.2. 1258 1959 Unknown [id number] 2.16.840.1.715922.3.579.2. 1258 1959 Unknown [id number] 2.16.840.1.888539.3.579.2. 1258 1959 Unknown [id number] 2.16.840.1.479388.3.579.2. 1258 1959 Unknown [id number] 2.16.840.1.818220.3.579.2. 1258 1959 Unknown [id number] 2.16.840.1.638386.3.579.2. 1258 1959 Unknown [id number] 2.16.840.1.862897.3.579.2. 1258 1959 Unknown [id number] 2.16.840.1.846162.3.579.2. 1258 1959 Unknown [id number] 2.16.840.1.963639.3.579.2. 196 1959 Unknown [id number] 2.16.840.1.035694.3.579.2. 196 1959 Unknown [id number] 2.16.840.1.002852.3.579.2. 727 1959 Unknown [id number] 2.16.840.1.142682.3.579.2. 72 1959 Unknown [id number] 2.16.840.1.370565.3.579.2. 1959 Unknown [id number] 2.16.840.1.675437.3.579.2. 1959 Unknown [id number] 2.16.840.1.065942.3.579.2. 1959 Unknown [id number] 2.16.840.1.895781.3.579.2. 1959 Unknown [id number] 2.16.840.1.098987.3.579.2. 1959 Unknown [id number] 2.16.840.1.747118.3.579.2. 7 1960 Blue Cross Blue Shield [id number] 2.16.840.1.976380.19 1959 Self-pay [id number] 1959 Unknown [id number] 2.16.840.1.814403.3.249.13 Unknown [id number] 2.16.840.1.772726.3.579.2. 531 Unknown [id number] 2.16.840.1.807318.3.579.2. 531 Unknown [id number] 2.16.840.1.357155.3.579.2. 531 Unknown [id number] 2.16.840.1.000811.3.579.2. 531 Unknown [id number] 2.16.840.1.733053.3.579.2. 531 Social History Date Type Detail Facility Start: 04-18-2011 End: 05-16-2017 Tobacco smoking status NHIS Never smoker [facility] Work Phone: Start: 1960 Sex Assigned At Not on file [facility] Work Phone: Start: 04-18-2011 End: 01-01-2015 Tobacco use and exposure Never used [facility] Start: 01-01-2015 End: 02-15-2025 Alcohol intake Current drinker of alcohol (finding) [facility] Start: 01-13-2022 End: 03-18-2023 Exposure to SARS-CoV-2 (event) Not sure [facility] Start: 06-01-2012 Tobacco smoking status Never [facility] Start: 02-20-2023 End: 03-13-2025 Sex Assigned At Female [facility] Other Start: 01-11-2022 History SDOH Alcohol Comment [facility] Start: 1960 Sex Assigned At Female [facility] Tobacco [facility] Comment on above: Denies. Tobacco smoking status [facility] Start: 02-20-2023 End: 03-13-2025 History of Social function [facility] Start: 05-23-2023 Alcohol Comment pop 2-3 cups per day [facility] Start: 09-17-2024 End: 12-08-2024 Sex Female (finding) [facility] Medical Equipment Procedure Code Equipment Code Equipment Origin al Text Equipment Identifier Dates Graft 5cc Bone Biocomposite Strip Augmatrix - [id number] Start: 09-14-2016 Allopure Bicorti pilar 8mm Champagne Start: 05-24-2015 Augmatrix Biocom posite Bone Graft Strip - 5cc Start: 05-24-2015 Screw 3.5 X 20mm Prabhu Lock Ortholoc 3dsi - [id number] Start: 05-24-2015 Screw 3.5 X 24mm Prabhu Lock Ortholoc 3dsi - [id number] Start: 05-24-2015 Plate 20mm 2hl C law Ii - [id number] Start: 05-24-2015 Plate 2mm Lapidu s Flat Ortholoc 3di Hallux - [id number] Start: 09-14-2016 Screw 3.5 X 20mm Lock Ortholoc 3di - [id number] Start: 09-14-2016 Screw 3.5 X 28mm Lock Ortholoc 3di - [id number] Start: 09-14-2016 Edge Lock Plate Start: 09-14-2016 Locking Screw Start: 09-14-2016 Nonlock Screw Start: 09-14-2016 Sht Screw Start: 09-14-2016 Plate Screws Graft 5cc Bone Biocomposite Strip Augmatrix - [id number] Start: 09-14-2016 Allopure Bicorti pilar 8mm Champagne Start: 05-24-2015 Augmatrix Biocom posite Bone Graft Strip - 5cc Start: 05-24-2015 Screw 3.5 X 20mm Prabhu Lock Ortholoc 3dsi - [id number] Start: 05-24-2015 Screw 3.5 X 24mm Prabhu Lock Ortholoc 3dsi - [id number] Start: 05-24-2015 Plate 20mm 2hl C law Ii - [id number] Start: 05-24-2015 Plate 2mm Lapidu s Flat Ortholoc 3di Hallux - [id number] Start: 09-14-2016 Screw 3.5 X 20mm Lock Ortholoc 3di - [id number] Start: 09-14-2016 Screw 3.5 X 28mm Lock Ortholoc 3di - [id number] Start: 09-14-2016 Edge Lock Plate Start: 09-14-2016 Locking Screw Start: 09-14-2016 Nonlock Screw Start: 09-14-2016 Sht Screw Start: 09-14-2016 Graft 5cc Bone Biocomposite Strip Augmatrix - [id number] Start: 09-14-2016 Allopure Bicorti pilar 8mm Champagne Start: 05-24-2015 Augmatrix Biocom posite Bone Graft Strip - 5cc Start: 05-24-2015 Screw 3.5 X 20mm Prabhu Lock Ortholoc 3dsi - [id number] Start: 05-24-2015 Screw 3.5 X 24mm Prabhu Lock Ortholoc 3dsi - [id number] Start: 05-24-2015 Plate 20mm 2hl C law Ii - [id number] Start: 05-24-2015 Plate 2mm Lapidu s Flat Ortholoc 3di Hallux - [id number] Start: 09-14-2016 Screw 3.5 X 20mm Lock Ortholoc 3di - [id number] Start: 09-14-2016 Screw 3.5 X 28mm Lock Ortholoc 3di - [id number] Start: 09-14-2016 Edge Lock Plate Start: 09-14-2016 Locking Screw Start: 09-14-2016 Nonlock Screw Start: 09-14-2016 Sht Screw Start: 09-14-2016 Graft 5cc Bone Biocomposite Strip Augmatrix - [id number] Start: 09-14-2016 Allopure Bicorti pilar 8mm Champagne Start: 05-24-2015 Augmatrix Biocom posite Bone Graft Strip - 5cc Start: 05-24-2015 Screw 3.5 X 20mm Prabhu Lock Ortholoc 3dsi - [id number] Start: 05-24-2015 Screw 3.5 X 24mm Prabhu Lock Ortholoc 3dsi - [id number] Start: 05-24-2015 Plate 20mm 2hl C law Ii - [id number] Start: 05-24-2015 Plate 2mm Lapidu s Flat Ortholoc 3di Hallux - [id number] Start: 09-14-2016 Screw 3.5 X 20mm Lock Ortholoc 3di - [id number] Start: 09-14-2016 Screw 3.5 X 28mm Lock Ortholoc 3di - [id number] Start: 09-14-2016 Edge Lock Plate Start: 09-14-2016 Locking Screw Start: 09-14-2016 Nonlock Screw Start: 09-14-2016 Sht Screw Start: 09-14-2016 Graft 5cc Bone Biocomposite Strip Augmatrix - [id number] Start: 09-14-2016 Allopure Bicorti pilar 8mm Champagne Start: 05-24-2015 Augmatrix Biocom posite Bone Graft Strip - 5cc Start: 05-24-2015 Screw 3.5 X 20mm Prabhu Lock Ortholoc 3dsi - [id number] Start: 05-24-2015 Screw 3.5 X 24mm Prabhu Lock Ortholoc 3dsi - [id number] Start: 05-24-2015 Plate 20mm 2hl C law Ii - [id number] Start: 05-24-2015 Plate 2mm Lapidu s Flat Ortholoc 3di Hallux - [id number] Start: 09-14-2016 Screw 3.5 X 20mm Lock Ortholoc 3di - [id number] Start: 09-14-2016 Screw 3.5 X 28mm Lock Ortholoc 3di - [id number] Start: 09-14-2016 Edge Lock Plate Start: 09-14-2016 Locking Screw Start: 09-14-2016 Nonlock Screw Start: 09-14-2016 Sht Screw Start: 09-14-2016 Graft 5cc Bone Biocomposite Strip Augmatrix - [id number] Start: 09-14-2016 Allopure Bicorti pilar 8mm Champagne Start: 05-24-2015 Augmatrix Biocom posite Bone Graft Strip - 5cc Start: 05-24-2015 Screw 3.5 X 20mm Prabhu Lock Ortholoc 3dsi - [id number] Start: 05-24-2015 Screw 3.5 X 24mm Prabhu Lock Ortholoc 3dsi - [id number] Start: 05-24-2015 Plate 20mm 2hl C law Ii - [id number] Start: 05-24-2015 Plate 2mm Lapidu s Flat Ortholoc 3di Hallux - [id number] Start: 09-14-2016 Screw 3.5 X 20mm Lock Ortholoc 3di - [id number] Start: 09-14-2016 Screw 3.5 X 28mm Lock Ortholoc 3di - [id number] Start: 09-14-2016 Edge Lock Plate Start: 09-14-2016 Locking Screw Start: 09-14-2016 Nonlock Screw Start: 09-14-2016 Sht Screw Start: 09-14-2016 Palacos R+G 1x40 Single With Gentamicin - [id number] Start: 01-23-2022 Revision Crs Rot ating Platform Insert Size 5 10mm Aox [id number] Start: 01-23-2022 Cement Simplex P Tobramycin Bone Full Dose Radiopaque Preblend Sterile - [id number] Start: 04-14-2024 Cement Simplex P Bone Radiopaque Full Dose Sterile - [id number] Start: 04-14-2024 Functional Status Date Assessment Result Facility 11-11-2024 Functional Status N/A [facility] 09-28-2024 Functional Status N/A [facility] 08-23-2024 Functional Status N/A [facility] 08-09-2024 Functional Status N/A [facility] 06-23-2024 Functional Status N/A [facility] 05-04-2024 Functional Status N/A [facility] 04-15-2024 Are you deaf, or do you have serious difficulty hearing No 04/15/2024 2:04 PM Austen Land RN No [facility] 04-15-2024 Are you blind, or do you have serious difficulty seeing, even when wearing glasses No 04/15/2024 2:04 PM Austen Land RN No [facility] 04-15-2024 Do you have serious difficulty walking or climbing stairs No 04/15/2024 2:04 PM Austen Land RN No [facility] 04-15-2024 Do you have difficul ty dressing or bathing No 04/15/2024 2:04 PM Austen Land RN No [facility] 04-15-2024 Because of a physica l, mental, or emotional condition, do you have difficulty doing errands alone such as visiting a physician's office or shopping No 04/15/2024 2:04 PM Austen Land RN No [facility] 03-23-2024 Functional Status N/A [facility] 02-06-2024 Functional Status No [facility] 01-27-2024 Functional Status N/A [facility] 01-21-2024 Functional Status N/A [facility] 01-20-2024 Functional Status [facility] 01-08-2024 Functional Status N/A [facility] 01-08-2024 Functional Status [facility] 01-04-2024 Functional Status N/A [facility] 01-04-2024 Functional Status [facility] 12-29-2023 Functional Status N/A [facility] 12-27-2023 Functional Status N/A [facility] 10-05-2023 Functional Status N/A [facility] 09-14-2023 Functional Status N/A [facility] 12-05-2022 Functional Status N/A [facility] 09-06-2022 Functional Status N/A [facility] 07-24-2022 Functional Status No [facility] 05-22-2022 Functional Status No [facility] 05-22-2022 Functional Status [facility] 05-21-2022 Functional Status N/A [facility] 05-11-2022 Functional Status N/A [facility] Mental Status Date Assessment Result Facility 04-15-2024 Because of a physica l, mental, or emotional condition, do you have serious difficulty concentrating, remembering, or making decisions No 04/15/2024 2:04 PM EDT Austen Tee RN No [facility] Clinical Notes 12-09-2015 to 03-12-2025 Telephone Encounter [...] above. Please process accordingly. Stevo Neff MD [facility] 03-12-2025 Miscellaneous Notes Notify patient medication sent as requested Thank you. Patient's request for medication is as follows: Requested Prescriptions Pending Prescriptions Disp Refills celecoxib (CELEBREX) 200 mg capsule [Pharmacy Med Name: CELECOXIB 200 MG CAPSULE] 180 capsule 2 Sig: TAKE 1 CAPSULE BY MOUTH TWICE A DAY Prescription(s) as above. Please process accordingly. Stevo Neff MD documented in this encounter [facility] 02-15-2025 History of Presen t illness Narrative [...] Still working. Due for cruise in 03/2025 [facility]. 100% improvement from rinvoq. Walking for [...] Dactylitis: no H/o precedent/frequent infection(s): as above Enthesopathy/[place]'s/heel/rene ntar tenderness: no Skin thickening, psoriasis, photosensitivity, [...] Urine or urethritis: no Renal/liver disease: no SECOND HELPER/PNS/sz/cva/cancer disease: no HEME-Cytopenias/LAD/Clots: +PE 07/2020 with 1st [...] PGM-rheumatoid arthritis, gout;father- 56y/o brain blood clot, CA;mother- cancer 66y/o;sisters-osteoarthritis;ch ildren-healthy; FAMILY HISTORY Problem Relation Age of Onset Cancer Mother Cerebral Embolism Father CVA, aneurysm, CA, other (normal [Other]) Sister None Sister None Sister Breast Cancer No Family History no known family h/o breast or ovarian cancer Anesthesia Problems No Family History SOCIAL HISTORY: Job 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 Due for cruise in 03/2025 [facility]. 100% improvement from rinvoq. 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 Without ANY difficulty Bend down to excelsior picker clothing from the floor? Without ANY difficulty [...] to Last (range: -500 - 500) 0 [facility]TA[facility] QUESTIONNAIRE Question 02/13/2025 8:10 [...] body? Without ANY difficulty Bend down to excelsior picker clothing from the floor? Without ANY difficulty [...] - 500) 0 documented in this encounter [facility] 02-15-2025 Note HNO ID: [id number] Author: STEVO NEFF MD Service: ? Author [...] Still working. Due for cruise in 03/2025 [facility]. 100% improvement from rinvoq. Walking for [...] Burning pain an (more content not included)... [facility] 02-15-2025 Instructions Stevo Neff MD - 02/15/2025 [...] touching your toes, sit-ups, using row machine intermediate pain recommendations per primary care provider/pain clinic Increase water prior and 1week after prolia Prolia every 6months, last one ~summer 2021, Next bone mineral density after 11/14/25 Nonfasting labs as scheduled Thank you. 6/5/25 High alkaline phosphatase 131, esr 26;low hgb 11.2;normal rest of cbc, cmp, crp <0.3, vitamin D 68.1;negative hepatitis panel, quantiferon tb; [place] 11/15/23 osteopenia (was osteoporosis) L1-L4 1.238g/cm2, tscore [...] usual activities immediately. documented in this encounter [facility] 02-01-2025 History of Presen t illness Narrative [...] should problems arise. documented in this encounter [facility] 12-16-2024 Telephone encounter Note Please Call patient if MyChart note not read to review results/released to My Chart if tests completed at [facility]: One borderline inflammatory test- will monitor with primary care provider. Stable rest of labs and normal other inflammatory test. Continue same vitamin D intake with food. Recheck nonfasting labs in 3months.The orders have been placed. Rinvoq sent to [facility] pharmacy. Happy to further review and [...] DDimer 4180;negative synovial fluid crystals, quantiferon tb [facility] 12-16-2024 Miscellaneous Notes Please Call patient if MyChart note not read to review results/released to My Chart if tests completed at [facility]: One borderline inflammatory test- will monitor with primary care provider. Stable rest of labs and normal other inflammatory test. Continue same vitamin D intake with food. Recheck nonfasting labs in 3months.The orders have been placed. Rinvoq sent to [facility] pharmacy. Happy to further review and [...] noted from 12/03/2024. documented in this encounter [facility] 12-15-2024 Telephone encounter Note Lab results noted from 12/03/2024. [facility] 12-03-2024 Telephone encounter Note Pt called back, she will go to get labs today [facility] 12-03-2024 Miscellaneous Notes Pt called back, she [...] multiple sites without rheumatoid factor (HCC) Rheumatology tSevo Neff MD 05/07/2022 Rheumatoid arthritis of multiple sites without rheumatoid factor (HCC) Rheumatology Setvo Neff MD 10/10/2005 IMMUNOLOGICAL FIND OTHR OR UNSPEC Rheumatology Laura Harper Upcoming Rheumatology Appointments - Next 365 Days Visit Type Date Time Department [facility] 02/15/2025 7:40 AM [facility] CBC: Latest Ref Rng & Units [...] diagnoses: Screening-pulmonary TB documented in this encounter [facility] 12-03-2024 Telephone encounter Note Called patient LM on VM to get labs completed Stated refill has been refused- once labs done, refill will be completed Louis Ambrose December 03, 2024 8:16 AM [facility] 12-02-2024 Telephone encounter Note Not seen since 09/2023. Due for labs. Please link orders. Otherwise, please defer medication refills to current provider Thank you. [facility] 12-01-2024 Telephone encounter Note Images from the [...] Days Visit Type Date Time Department [facility] 02/15/2025 7:40 AM [facility] CBC: Latest Ref Rng & Units [...] Stevo Neff MD Assoc. diagnoses: Screening-pulmonary TB [facility] 11-20-2024 Evaluation note Diagnosis Onset Date Resolution Laceration of left knee acute November 20, 2024 3 :52pm Left knee injury acute October 3:52pm [facility] Work Phone: 1(293) 361-152205-23-2025 Evaluation note* Diagnosis Onset Date Resolution Status Admit Date Laceration of left knee acute M ay 2024 3:52pm Left knee injury acute October 3:52pm Encounter for removal of sutures noneactive December 08, 2024 9:20am Cellulitis of leg, left acute J une 2024 12:05pm [facility] Work Phone: 1(710) 258-774703-03-2025 History of Present illness Narrative* Adam Hernandez [...] sooner should problems arise. [id number] encounter Note* Telephone Encounter - Consuelo [...] 365 Days Visit Type Date Time Department [facility] 02/15/2025 7:40 AM [facility] CBC: Latest Ref Rng & Units [...] Stevo Neff MD Assoc. diagnoses: Screening-pulmonary TB [facility]02-13-2025 Miscellaneous Notes* Telephone Encounter - Consuelo Scott [...] 365 Days Visit Type Date Time Department [facility] 02/15/2025 7:40 AM [facility] CBC: Latest Ref Rng & Units [...] Assoc. diagnoses: Screening-pulmonary TB [facility] Discharge instructions Patient Education 08/09/2024 15:53:48 Oral Thrush, Adult, Rjwl-wa-Vfwk Oral Thrush, Adult Oral thrush is an [...] your mouth. General instructions Take or use swfu-ikw-vsvhmvy and prescription medicines only as told by your doctor. Eat plain yogurt that has live cultures in it. Read the label to make sure that there are live cultures in your yogurt. If you wear false teeth: ?Take them out before you go to bed. ?[place] them well. ?Soak them in a beer coil cleaner. Rinse your mouth with warm salt-water [...] provider. Document Revised: 06/03/2023 Document Reviewed: 06/03/2023 [employer] Patient Education 2023 [employer]. 08/09/2024 15:53:43 Influenza, Adult, Qwsz-ju-Zjah Influenza, Adult Influenza is also called the [...] Your doctor may want you to: Take bqsc-smn-flymzbi medicines. Drink plenty of fluids. The flu [...] foods include: ?Bananas. ?Applesauce. ?Rice. ?Lean meats. ?[place]. ?Crackers. Do not eat or drink: ?Fluids that have a lot of sugar or caffeine. ?Alcohol. ?Spicy or fatty foods. General instructions Take nzjj-nkz-ksnsluf and prescription medicines only as told by [...] use soap and water, use alcohol-based hand clerk of works. Keep all follow-up visits. How is this [...] spreads easily from person to person. Take frwy-gmk-xxhhdhz and prescription medicines only as told by your doctor. Getting a flu shot every year is the best way to not get the flu. This information is not intended to replace advice given to you by your health care provider. Make sure you discuss any questions you have with your health care provider. Document Revised: 02/01/2021 Document Reviewed: 02/03/2021 [employer] Patient Education 2023 [employer]. Follow Up Care 08/09/2024 11:39:41 With:Santino Moran MD Address: [address] [place] [address] [place] [address]- When: Unknown [facility] 02-09-2025 NotePatient Education Infectious [...] mouth. General instructions ??? Take or use dsqv-czg-ixsobni and prescription medicines only as told by your doctor. ??? Eat plain yogurt that has live cultures in it. Read the label to make sure that there are live cultures in your yogurt. ??? If you wear false teeth: ? Take them out before you go to bed. ? [place] them well. ? Soak them in a beer coil cleaner. ??? Rinse your mouth with warm [...] provider. Document Revised: 06/03/2023 Document Reviewed: 06/03/2023 [employer] Patient Education ? 2023 [employer]. Influenza, Adult Influenza is also called the [...] ??? Are very overweigh (more content not included)...[facility] 08-05-2024 Telephone encounter Note* Telephone Encounter - Jayde Chirinos - 08/05/2024 11:12 AM EST Called patient MAMIE and Alex in regards to completing labs [facility]02-05-2025 Miscellaneous Notes* Telephone Encounter - Jayde Chirinos [...] Stevo Neff MD * Telephone Encounter - Monika Zavala MA - 08/04/2024 8:49 AM EST [...] Days Visit Type Date Time Department [facility] 02/15/2025 7:40 AM [facility] CBC: Latest Ref Rng & Units [...] Instance) Lab Orders None [facility] Telephone encounter Note * Telephone Encounter - [...] above. Please process accordingly. Stevo Neff MD [facility]02-04-2025 Telephone encounter Note* Telephone Encounter - Monika Zavala MA - 08/04/2024 8:49 AM EST [...] 365 Days Visit Type Date Time Department [facility] 02/15/2025 7:40 [facility] CBC: Latest Ref Rng & Units [...] Open Future (Single Instance) Lab Orders None [facility]01-20-2025 NoteHNO ID: [id number] Author: ERIK ALEJANDRO MD Service: ? Author Type: Physician Type: Progress Notes Filed: 07/21/2024 14:19 Note Text: Radiation Oncology - New Patient/Consult Note PATIENT NAME: Carolina Gutierrez PATIENT REQUESTING PHYSICIAN: Dr. 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 PATIENT IDENTIFICATION: This patient was seen in the Department of Radiation Oncology at the [facility] with Erik Alejandro MD. Final recommendations will be communicated back to the requesting physician by way of the shared medical record, or letter to requesting physician via US mail. HISTORY OF PRESENT ILLNESS: Ms. Gutierrez is a 63-year-old woman from [place], [place] who had biopsy of a skin lesion of the right lower leg anterior on 12/19/[address] Watson which returned as invasive squamous [...] Cancer Mother Cerebral Embolism Father CVA, aneurysm, CA, other (normal [Other]) Sister None Sister None Sister Breast Cancer No Family History no known family h/o breast or ovarian cancer Anesthesia Problems No Family History SOCIAL HISTORY: Ms. Gutierrez is , has 3 children, and lives in the [place], [place] area. She currently works part-time at the [employer] and denies any tobacco use and consumes [...] leg after biopsy on 12/19/2023 [address] her [address] broacher Dr. Watson. She was offered local excision however the patient preferred to avoid surgery given her history of postop wound infections including open wounds in the lower extremities. She is referred today to the radiation medicine clinic to have a discussion regarding the role of radiation therapy in the definitive and nonoperati (more content not included)...[facility]01-20-2025 History of Present illness Narrative* Erik Alejandro [...] On body monitoring device?N [facility] Telephone encounter Note * Telephone Encounter - Manju Perry - 07/08/2024 3:56 PM EST All appointments have been canceled Manju Perry PSS [facility]01-08-2025 Miscellaneous Notes* Telephone Encounter - Manju Perry [...] cancelled. Kathy Vo, KAILA documented in this encounterK[facility]01-[facility]-2025 Telephone encounter Note * Telephone Encounter - Kathy Vo RN - 07/08/2024 3:48 PM EST Pt called in to cancel simulation and all appts with us. She is working with DR Watson who is going to do surgery to remove the cancer. She states she will not need radiation and requested all visits be cancelled. Kathy Vo RN [facility]12-30-2024 NoteHNO ID: [id number] Author: ROS CHRISTIANSON, DO Service: ? Author Type: Physician Type: Progress Notes Filed: 06/29/2024 18:35 Note Text: VIRTUAL VISIT PROGRESS NOTE This is a virtual visit using [employer] Video Visit. It required patient-provider interaction for the medical decision making as documented below. I have communicated my name and active licensure. The patient's identity and physical location were verified at the time of this visit. Either the patient or their legal service representative has been informed of the risks [...] Cancer Mother Cerebral Embolism Father CVA, aneurysm, CA, other (normal [Other]) Sister None Sister None [...] fluticasone (FLONASE) 50 mcg/actuation nasal spray 1 [place] daily at bedtime. in each nostril. Cholecalciferol, [...] and well-hydrated, well n (more content not included)...[facility]12-30-2024 History of Present illness Narrative* Ros Christianson, - 06/29/2024 6:29 PM EST VIRTUAL VISIT PROGRESS NOTE This is a virtual visit using [employer] Video Visit. It required patient- provider interaction for the medical decision making as documented below. I have communicated my name and active licensure. The patient's identity and physical location wereverified at the time of this visit. Either the patient or their legal service representative has been informed of the risks [...] Cancer Mother Cerebral Embolism Father CVA, aneurysm, CA, other (normal [Other]) Sister None Sister None [...] fluticasone (FLONASE) 50 mcg/actuation nasal spray 1 [place] daily at bedtime. in each nostril. Cholecalciferol, [...] DO June 29, 2024 documented in this encounterK[facility]12-30-2024 Miscellaneous Notes* Telephone Encounter - Kathy Silva - 06/29/2024 12:10 PM EST Notified [facility] at [phone], verbal orders given to Pam. Kathy Guerra I * Telephone Encounter - Anna Coffman RN - 06/29/2024 9:35 AM EST Teresa from [facility] called to inquire about drawing a Vanco level today since stop dateis today. If pt does not need vanco level the nurse would go see pt after last dose of vanco today and pull PICC line. After confirming with Dr. Christianson, Vanco does not need to be drawn and nurse may remove PICC line.I returned call to Teresa at [phone] and let her know the plan. documented in this encounterK[facility]12-30-2024 Telephone encounter Note * Telephone Encounter - Kathy Silva - 06/29/2024 12:10 PM EST Notified [facility] at [phone], verbal orders given to Pam. Kathy Rios Asst Shaunna [facility]12-30-2024 Telephone encounter Note* Telephone Encounter - Anna Coffman RN - 06/29/2024 9:35 AM EST Teresa from [facility] called to inquire about drawing a Vanco level today since stop dateis today. If pt does not need vanco level the nurse would go see pt after last dose of vanco today and pull PICC line. After confirming with Dr. Christianson, Vanco does not need to be drawn and nurse may remove PICC line.I returned call to Teresa at [phone] and let her know the plan. [facility]12-26-2024 Telephone encounter Note* Telephone Encounter - Manju Perry - 06/25/2024 4:01 PM EST Patient is scheduled on 07/13/24 at 8AM Manju Perry PSS [facility]12-26-2024 Miscellaneous Notes* Telephone Encounter - Manju Perry [...] today Kathy Vo RN documented in this encounterKettering [facility]12-26-2024 Telephone encounter Note * Telephone Encounter - [...] hr. Consent signed. Thanks! Louisa Rubi RT(R)(T) [facility] Work Phone: 1(124) 167-460512-26-2024 Telephone encounter Note* Telephone Encounter - Louisa Rubi RT(R) - 06/25/2024 10:08 AM EST I called & spoke with Carolina regarding sim appt options. Pt is unable to come any time on 07/06. Will speak with CONRAD regarding moving pt to FATEMEH's schedule for simulation a different day. RT Gabo(R)(T) [facility]12-24-2024 History of Present illness Narrative* Luke Mireles RPh - 06/23/2024 3:20 PM EST [facility] OPAT Documentation Note OPAT Vancomycin Monitoring - [...] Please see below for additional vancomycin recommendations. [facility] OPAT PHARMACIST VANCOMYCIN DOSING NOTE Patient [...] indicated sooner. 5. Notified [facility] at [phone], verbal orders given to Mary Ann (pharmacist). We will follow patient renal function, vancomycin levels and doses with you during the course of therapy. Additional recommendations will appear in follow up notes. If you have any questions, please contact Luke Mireles RPh at [phone]. Age: [age] year old Allergies: ALLERGIES Allergen [...] 5 Luke Mireles RPh documented in this encounterKet[facility]12-24-2024 NoteHNO ID: [id number] Author: LUKE MIRELES RPh Service: ? Author Type: Pharmacist Type: Progress Notes Filed: 06/23/2024 15:22 Note Text: [facility] Documentation Note OPAT Vancomycin Monitoring - [...] Please see below for additional vancomycin recommendations. [facility] OPAT PHARMACIST VANCOMYCIN DOSING NOTE Patient [...] indicated sooner. 5. Notified [facility] at [phone], verbal orders given to Mary Ann (pharmacist). We will follow patient renal function, vancomycin levels and doses with you during the course of therapy. Additional recommendations will appear in follow up notes. If you have any questions, please contact Luke Mireles RPh at [phone]. Age: [age] year old Allergies: ALLERGIES Allergen [...] Encounter (in minutes): < 5 [facility] Tele[facility] encounter Note * Telephone Encounter - OrlandoManju - 06/22/2024 3:51 PM EST Carolina states that time doesn't work, she wants the latest we can give her because she doesn't wantto miss any work. I told her I would call back when I get word of a later time. She understood Manju Perry [facility]12-23-2024 Telephone encounter Note* Telephone Encounter - Holly Castelan Tech - 06/22/2024 1:42 PM EST PSS- please schedule sim on PET/CT machine on 07/06/2023 @ 12:00pm Rt Lower Leg with arrival time of 11:45am. No special instructions ThanksHolly [facility] Work Phone: 1(816) 978-109912-23-2024 Telephone encounter Note* Telephone Encounter - Amy Slade RN - 06/22/2024 10:43 AM EST PSS/RT Please schedule SIM 07/[address] Alejandro. Thanks Amy Slade RN [facility]12-17-2024 History of Present illness Narrative* Luke Mireles, [facility] - 06/16/2024 10:01 AM EST [facility] OPAT Documentation Note OPAT Vancomycin Monitoring - [...] Please see below for additional vancomycin recommendations. [facility] OPAT PHARMACIST VANCOMYCIN DOSING NOTE Patient [...] questions, please contact Luke Mireles RPh at [phone]. Age: [age] year old Allergies: ALLERGIES Allergen [...] 5 Luke Mireles RPh documented in this encounterKet[facility]12-17-2024 NoteHNO ID: [id number] Author: LUKE MIRELES RPh Service: ? Author Type: Pharmacist Type: Progress Notes Filed: 06/23/2024 14:40 Note Text: [facility] OPAT Documentation Note OPAT Vancomycin Monitoring - [...] Please see below for additional vancomycin recommendations. [facility] OPAT PHARMACIST VANCOMYCIN DOSING NOTE Patient [...] questions, please contact Luke Mireles janee at [phone]. Age: [age] year old Allergies: ALLERGIES Allergen [...] (in minutes): < 5 Luke Seymour Aline, [facility]12-16-2024 NoteHNO ID: [id number] Author: AMY SLADE RN Service: ? Author Type: Registered Nurse Type: Progress Notes Filed: 07/20/2024 23:48 Note Text: Pacemaker/Defibrillator?N Previous Cancer(s)?skin cancer Previous Radiation?N Lupus/Scleroderma?N On body monitoring device?[facility]12-16-2024 NoteHNO ID: [id number] Author: KATHY VO RN Service: ? Author Type: Registered Nurse Type: Progress Notes Filed: 06/15/2024 14:47 Note Text: Radiation Therapy - Patient Education Note PATIENT NAME: Carolina Gutierrez PATIENT June 15, 2024 [facility] FACILITY/LOCATION: [facility] READINESS TO LEARN Cognitive Ability: Alert and [...] need for social work, van service, and epic application coordinator. Patient has an Onbody or Implanted device: No Signed by: Kathy Vo RNOhio[facility]12-16-2024 History of Present illness Narrative* Kathy Vo RN - 06/15/2024 2:46 PM EST Radiation Therapy - Patient Education Note PATIENT NAME: Carolina Gutierrez PATIENT June 15, 2024 [facility] FACILITY/LOCATION: [facility] READINESS TO LEARN Cognitive Ability: Alert and [...] need for social work, van service, and epic application coordinator. Patient has an Onbody or Implanted device: No Signed by: Kathy Vo RN documented in this encounterKettering [facility]12-16-2024 Telephone encounter Note * Telephone Encounter - Manju Perry - 06/15/2024 2:41 PM EST Nurse Ed added to today schedule Manju Perry PSS [facility]12-16-2024 Telephone encounter Note* Telephone Encounter - Ktahy Vo, KAILA - 06/15/2024 2:07 PM EST Schedule SIM treating R Lower Leg (not urgent), Will need CT/SIM and also Clinical Set up Consent Signed Rad Ed today Kathy Vo, KAILA [facility]12-16-2024 NoteEducation (RADTSA) CAROLINA GUTIERREZ ([id number]) 1960 F Date Time Provider Department 06/15/24 [...] fluticasone (FLONASE) 50 mcg/actuation nasal spray 1 [place] daily at bedtime. in each nostril. - Cholecalciferol, Vitamin D3, 1,000 unit ORAL Tab Take 1 tablet by mouth once daily. - CITRACAL 500 MG (2,376 MG) EFFERVESCENT TAB Take one(1) tablet two(2) times daily. - ADVAIR 250/50 DISKUS Inhale 1 Puff as instructed two times a day. Advair diskus 500/50 Encounter Status:Closed by KATHY VO on 06/15/24[facility] 06-09-2024 History of Present illness Narrative* Luke Mireles, [facility] - 06/09/2024 12:09 PM EST [facility] OPAT Documentation Note OPAT Vancomycin Monitoring - [...] time.Please see below for additional vancomycin recommendations. [facility] OPAT PHARMACIST VANCOMYCIN DOSING NOTE Patient [...] next wk. 5. Notified [facility] at [phone], verbal orders given to Mary Ann (pharmacist). We will follow patient renal function, vancomycin levels and doses with you during the course of therapy. Additional recommendations will appear in follow up notes. If you have any questions, please contact Luke Mireles RPh at [phone]. Age: [age] year old Allergies: ALLERGIES Allergen [...] 5 Luke Mireles RPh documented in this encounterK[facility]12-10-2024 NoteHNO ID: [id number] Author: LUKE MIRELES RPh Service: ? Author Type: Pharmacist Type: Progress Notes Filed: 06/16/2024 10:02 Note Text: [facility] OPAT Documentation Note OPAT Vancomycin Monitoring - [...] Please see below for additional vancomycin recommendations. [facility] OPAT PHARMACIST VANCOMYCIN DOSING NOTE Patient [...] next wk. 5. Notified [facility] at [phone], verbal orders given to Mary Ann (pharmacist). We will follow patient renal function, vancomycin levels and doses with you during the course of therapy. Additional recommendations will appear in follow up notes. If you have any questions, please contact Luke Mireles [facility] at [phone]. Age: [age] year old Allergies: ALLERGIES Allergen [...] Encounter (in minutes): < 5 Luke Mireles, [facility]12-06-2024 NoteHNO ID: [id number] Author: JOHN HOLLY MD Service: ? 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 [...] Shoulder and Elbow Surgeon Orthopaedic Surgery Department [place], [place] [address] Tell: [phone] Appt:[phone] [facility]12-06-2024 History of Present illness Narrative* John Holly MD - 06/05/2024 2:21 PM EST [facility] NOTE Department of Orthopaedics John Holly MD [facility] NAME: Carolina Gutierrez CLINIC NO.: [id number] DATE: 06/05/2024 Surgery: Removal Of Prosthesis, Includes [...] 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 [...] Shoulder and Elbow Surgeon Orthopaedic Surgery Department [place], [place] [address] Tell: [phone] Appt:[phone] documented in this encounterKet[facility]12-06-2024 History of Present illness Narrative* Elvi Shah [...] PATIENT PRESENTS WITH AN IMPLANTABLE OR ATTACHED SAMPLER RADIOACTIVE WASTE: No RADIOLOGY DEPARTMENT: General X-ray: Exam(s) Completed: Upper Extremity X- Ray(s): Shoulder, AP / TRUE AP / AXILLARY left PERIPHERAL IV DATA: Not applicable SIGNED BY: RT Roxanne(Kamryn) June 05, 2024 1:53 PM documented in this encounterKettering Health [facility]12-06-2024 NoteHNO ID: [id number] Author: ELVI SHAH RT(Kamryn) Service: ? Author Type: Regional Driver Type: Progress Notes Filed: 06/05/2024 13:58 Note [...] PATIENT PRESENTS WITH AN IMPLANTABLE OR ATTACHED SAMPLER RADIOACTIVE WASTE: No RADIOLOGY DEPARTMENT: General X-ray: Exam(s) Completed: Upper Extremity X-Ray(s): Shoulder, AP / TRUE AP / AXILLARY left PERIPHERAL IV DATA: Not applicable SIGNED BY: RT Roxanne(R) June 05, 2024 1:53 [facility]12-04-2024 History of Present illness Narrative* Kristi Vanegas [...] PATIENT PRESENTS WITH AN IMPLANTABLE OR ATTACHED SAMPLER RADIOACTIVE WASTE: No RADIOLOGY DEPARTMENT: CT; Exam(s) Completed: Upper extremity PERIPHERAL IV DATA: Not applicable SIGNED BY: RT Noel(R) June 03, 2024 6:40 PM documented in this encounterK[facility]12-03-2024 History of Present illness Narrative* Luke Mireles, [facility] - 06/02/2024 10:22 AM EST [facility] OPAT Documentation Note OPAT Vancomycin Monitoring - [...] Please see below for additional vancomycin recommendations. [facility] OPAT PHARMACIST VANCOMYCIN DOSING NOTE Patient [...] indicated sooner. 5. Notified [facility] at [phone], verbal orders given to Mary Ann (pharmacist). We will follow patient renal function, vancomycin levels and doses with you during the course of therapy. Additional recommendations will appear in follow up notes. If you have any questions, please contact Luke Mireles [facility] at [phone]. Age: [age] year old Allergies: ALLERGIES Allergen [...] 5-10 Luke Mireles RPh documented in this encounterKettering Health [facility]12-03-2024 NoteHNO ID: [id number] Author: LUKE MIRELES RPh Service: ? Author Type: Pharmacist Type: Progress Notes Filed: 06/02/2024 10:25 Note Text: [facility] OPAT Documentation Note OPAT Vancomycin Monitoring - [...] Please see below for additional vancomycin recommendations. [facility] OPAT PHARMACIST VANCOMYCIN DOSING NOTE Patient [...] indicated sooner. 5. Notified [facility] at [phone], verbal orders given to Mary Ann (pharmacist). We will follow patient renal function, vancomycin levels and doses with you during the course of therapy. Additional recommendations will appear in follow up notes. If you have any questions, please contact Luke Mireles RPh at [phone]. Age: [age] year old Allergies: ALLERGIES Allergen [...] this Encounter (in minutes): 5-10 Luke Mireles [facility]11-27-2024 History of Present illness Narrative* Luke Mireles, [facility] - 05/27/2024 8:03 AM EST [facility] OPAT Documentation Note OPAT Vancomycin Monitoring - [...] Please see below for additional vancomycin recommendations. [facility] OPAT PHARMACIST VANCOMYCIN DOSING NOTE Patient [...] indicated sooner. 5. Notified [facility] at [phone], verbal orders given to Mary Ann (pharmacist). [...] questions, please contact Luke Mireles RPh at [phone]. Age: [age] year old Allergies: ALLERGIES Allergen [...] 5-10 Luke Mireles RPh documented in this encounterKettering Health [facility]11-27-2024 NoteHNO ID: [id number] Author: LUKE MIRELES RPh Service: ? Author Type: Pharmacist Type: Progress Notes Filed: 05/27/2024 09:46 Note Text: [facility] OPAT Documentation Note OPAT Vancomycin Monitoring - [...] Please see below for additional vancomycin recommendations. [facility] OPAT PHARMACIST VANCOMYCIN DOSING NOTE Patient [...] indicated sooner. 5. Notified [facility] at [phone], verbal orders given to Mary Ann (pharmacist). [...] questions, please contact Luke Mireles RPh at [phone]. Age: [age] year old Allergies: ALLERGIES Allergen [...] this Encounter (in minutes): 5-10 [facility] History of Present illness Narrative* Luke Mireles RPh - 05/22/2024 2:31 PM EST [facility] OPAT Documentation Note All Other Encounters (for other adverse events, line issues, etc.) OPAT Complication: Other (Lab orders for Saturday/Saturday) Antimicrobials Implicated: Gentamicin and Vancomycin Afflicted Agency: [facility] Description/Actions Taken: Refer to Dr Kwong [facility] note from 05/21. Called [facility],[phone], and spoke with kath Reese. She took verbal orders to get repeat CBC/diff, Scr, and gentamicin level done on Saturday or Saturday pending nursing availability. Total Time Spent on this Encounter (in minutes): 5-10 Luke Mireles RPh 05/22/2024 2:31 PM * Luke Mireles RPh - 05/22/2024 2:31 PM EST [facility] OPAT Documentation Note OPAT Pharmacist Lab Review [...] all further doses. Refer to Dr Kwong [facility] note from 05/21. Called [facility] [phone], and spoke with kath Reese. She took verbal orders to get repeat CBC/diff, Scr, and gentamicin level doneon Saturday or Saturday pending nursing availability. Vancomycin OPAT on HOLD until labs are back this weekend. Lab Abnormalities Noted: acute kidney injury Total Time Spent on this Encounter (in minutes): 5-10 Luke Mireles RPh 05/22/2024 2:34 PM documented in this encounterKettering Health [facility]11-22-2024 NoteHNO ID: [id number] Author: LUKE MIRELES RPh Service: ? Author Type: Pharmacist Type: Progress Notes Filed: 05/22/2024 14:42 Note Text: [facility] OPAT Documentation Note OPAT Pharmacist Lab Review [...] all further doses. Refer to Dr Kwong [facility] note from 05/21. Called [facility], , and spoke with kath Reese. She took verbal orders to get repeat CBC/diff, Scr, and gentamicin level done on Saturday or Saturday pending nursing availability. Vancomycin OPAT on HOLD until labs are back this . Lab Abnormalities Noted: acute kidney injury Total Time Spent on this Encounter (in minutes): 5-10 Luke Mireles [facility] 05/22/2024 2:34 [facility]11-22-2024 NoteHNO ID: [id number] Author: LUKE MIRELES [facility] Service: ? Author Type: Pharmacist Type: Progress Notes Filed: 05/22/2024 14:42 Note Text: [facility] OPAT Documentation Note All Other Encounters (for other adverse events, line issues, etc.) OPAT Complication: Other (Lab orders for Saturday/Saturday) Antimicrobials Implicated: Gentamicin and Vancomycin Afflicted Agency: [facility] Description/Actions Taken: Refer to Dr Kwong [facility] note from 05/21. Called [facility], , and spoke with kath Reese. She took verbal orders to get repeat CBC/diff, Scr, and gentamicin level done on Saturday or Saturday pending nursing availability. Total Time Spent on this Encounter (in minutes): 5-10 Luke Mireles [facility] 05/22/2024 2:31 [facility]11-22-2024 NoteHNO ID: [id number] Author: ROS CHRISTIANSON DO Service: ? Author Type: Physician Type: Progress Notes Filed: 05/22/2024 14:00 Note Text: [facility] Outpatient Parenteral Antimicrobial Therapy (OPAT) Start Form Patient Info Patient MRN Patient Name Address Date of [id number] Carolina Manning [facility] [address] [facility] [address] 1960 Start Date 05/22/2024 Physician Group Cc_main [...] Monitoring Treatment Course Ros Christianson DO Address [address] [place] [address] Prescribing Provider's signature - electronically signed by Ros Christianson DO on 05/22/24 at 2:00 [facility]11-22-2024 History of Present illness Narrative* Ros Christianson DO - 05/22/2024 1:58 PM EST Images from the original note were not included. [facility]patient Parenteral Antimicrobial Therapy (OPAT) Start Form Patient Info Patient MRN Patient Name Address Date of [id number] Carolina A [facility] [address] [facility] [id number] Start Date 05/22/2024 Physician Group Cc_main [...] Monitoring Treatment Course Ros Christianson DO Address [address] [place] [address] Prescribing Provider's signature - electronically signed by Ros Christianson DO on 05/22/24 at 2:00 PM documented in this encounterK[facility]11-21-2024 History of Present illness Narrative* Ros Christianson DO - 05/21/2024 3:30 PM EST VIRTUAL VISIT PROGRESS NOTE This is a virtual visit using Episona Zoom Video Visit. It required patient- provider interaction for the medical decision making as documented below. I have communicated my name and active licensure. The patient's identity and physical location wereverified at the time of this visit. Either the patient or their legal service representative has been informed of the risks [...] gentamicin and vancomycin. Instructed to go to [facility] and was admitted from 05/14- 05/05. PICC [...] by Dr. Moran, a family physician in [facility]. Discussed with his office today. Creatinine increased [...] Cancer Mother Cerebral Embolism Father CVA, aneurysm, CA, other (normal [Other]) Sister None Sister None [...] fluticasone (FLONASE) 50 mcg/actuation nasal spray 1 [place] daily at bedtime. in each nostril. Cholecalciferol, [...] which included preparing to see the patient, [id number] patient care, completing clinical documentation, obtaining and/or reviewing separately obtained history, performing a medically appropriate examination, counseling and educating the pa tient/family/caregiver, ordering medications, tests, or procedures, communicating with other HCPs (not separately reported), independently interpreting results (not separately reported), and care coordination (not separately reported) Ros Christianson DO May 21, 2024 documented in this encounterKettering Health [facility]11-21-2024 NoteHNO ID: [id number] Author: ROS CHRISTIANSON DO Service: ? Author Type: Physician Type: Progress Notes Filed: 05/21/2024 17:27 Note Text: VIRTUAL VISIT PROGRESS NOTE This is a virtual visit using Chaologixom Video Visit. It required patient-provider interaction for the medical decision making as documented below. I have communicated my name and active licensure. The patient's identity and physical location were verified at the time of this visit. Either the patient or their legal service representative has been informed of the risks [...] gentamicin and vancomycin. Instructed to go to [facility] and was admitted from 05/14- 05/05. PICC [...] by Dr. Moran, a family physician in [facility]. Discussed with his office today. Creatinine increased [...] left axillary lymph node (more content not included)...[facility]11-18-2024 NoteHNO ID: [id number] Author: JOHN HOLLY MD Service: ? Author Type: Physician Type: Progress Notes Filed: 05/18/2024 15:27 Note Text: [facility] NOTE Department of Orthopaedics John Holly MD [facility] NAME: Carolina Gutierrez CLINIC NO.: [id number] DATE: 05/18/2024 Surgery: Removal Of Prosthesis, Includes [...] Shoulder and Elbow Surgeon Orthopaedic Surgery Department [place], [place] [address] Tell: [phone] Appt:[phone] [facility]11-18-2024 History of Present illness Narrative* John Holly MD - 05/18/2024 3:12 PM EST [facility] NOTE Department of Orthopaedics John Holly MD [facility] NAME: Carolina Gutierrez CLINIC NO.: [id number] DATE: 05/18/2024 Surgery: Removal Of Prosthesis, Includes [...] Shoulder and Elbow Surgeon Orthopaedic Surgery Department [place], [place] [address] Tell: [phone] Appt:[phone] documented in this encounterKettering Health Springfield11-18-2024 History of Present illness Narrative* Beckie Sandoval [...] PATIENT PRESENTS WITH AN IMPLANTABLE OR ATTACHED SAMPLER RADIOACTIVE WASTE: No RADIOLOGY DEPARTMENT: General X-ray: Exam(s) Completed: Upper Extremity X- Ray(s): Shoulder, AP / TRUE AP / AXILLARY left PERIPHERAL IV DATA: Not applicable SIGNED BY: RT Saroj(Kamryn) May 18, 2024 12:40 PM documented in this encounterKettering Health Springfield11-18-2024 NoteHNO ID: [id number] Author: BECKIE SANDOVAL RT(Kamryn) Service: ? Author [...] PATIENT PRESENTS WITH AN IMPLANTABLE OR ATTACHED SAMPLER RADIOACTIVE WASTE: No RADIOLOGY DEPARTMENT: General X-ray: Exam(s) Completed: Upper Extremity X-Ray(s): Shoulder, AP / TRUE AP / AXILLARY left PERIPHERAL IV DATA: Not applicable SIGNED BY: RT Saroj(R) May 18, 2024 12:40 [facility]11-11-2024 Miscellaneous Notes* Telephone Encounter - Wong Zamora Research Coordinator - 05/11/2024 3:45 PM ESTSummary: PJI Call TELEPHONE ENCOUNTER IRB#: [id number] [facility] PJI Study Title: Multicenter Study on Clinical and Microbiologic Outcomes for Suspected Shoulder Periprosthetic Joint Infection PI: Dr. Titus Garay Dye Machine Tender: Myara Zamora Date: 05/11/24 Time: 3:45 PM Pre-op phone interview for surgery on 04/14/24. Patient Phone Interview was completed per study protocol and data recorded in study files. Patient agreed to participate in study. Completed SST survey. Performed by: Mayra Zamora documented in this encounterKettering Health Springfield11-11-2024 Telephone encounter Note * Telephone Encounter - Wong Zamora Research Coordinator - 05/11/2024 3:45 PM ESTSummary: PJI Call TELEPHONE ENCOUNTER IRB#: [id number] [facility] PJI Study Title: Multicenter Study on Clinical and Microbiologic Outcomes for Suspected Shoulder Periprosthetic Joint Infection PI: Dr. Titus Garay Dye Machine Tender: Mayra Zamora Date: 05/11/24 Time: 3:45 PM Pre-op phone interview for surgery on 04/14/24. Patient Phone Interview was completed per study protocol and data recorded in study files. Patient agreed to participate in study. Completed SST survey. Performed by: Mayra Zamora [facility] Work Phone: 1(807) 834-373611-11-2024 History of Present illness Narrative* Kellie Watson [...] problems, see below: 1. Impetigo Inframammary Area [place] moist plaques. Flaring today Discussed that intertrigo is a chronic condition that can be controlled but not cured. Recommend keeping areas as dry as possible to avoid flares. Start Diflucan 150 mg every day x 3 days. Notify clinic if worsening despite treatment. Culture taken today to rule out bacterial superinfection. Specimen 1 - Aerobic culture Account Name: Geovany Perez NPI: Kellie Watson [id number] Related Medications fluconazole (Diflucan) 150 MG tablet [...] rec pt schedule FBSE documented in this encounterOzarks Community HospitalTmgijbhohf55-66-4567 History of Present illness Narrative* Merline Prieto NP - 05/04/2024 9:45 AM EST Subjective Patient ID: Carolina Gutierrez is a 63 y.o. female. Osteoporosis assessment: Notes she had LT shoulder surgery on 04/14/24 at [facility]. States they did not do the full [...] Florin. Denies fracture. DEXA scan results: 11/15/23 [facility] L1-L4 0.5, dual femur mean 0.5, dual neck mean - 2.0, dual troch mean-2.1, dual total mean -1.5, 04/11/21 @ [facility] Lspine T-score - 0.7, Hip T-score -2.7 right femoral trochanteric; 02/25/19 @[facility] Lspine T-score - 1.0, RT femoral head [...] unspecified osteoporosis type, unspecified pathological fracture presence (CMS/[facility]) M81.0 F/U in 2 years, will reorder dexa scan to be done in 10/2025 at [facility], will order reclast since she isosteopenia, she would like to have this done at [facility], will send for approval documented in this encounterOzarks Community HospitalMwxfcwixxb55-24-9947 NoteHNO ID: [id number] Author: STEVE GAMBINO PA Service: ? Author Type: Physician Relay Associate Type: Progress Notes Filed: 05/01/2024 11:26 Note Text: Steve Gambino PA-C, MSPAS Orthopaedic Surgery at [place] [address] Office: [phone] NAME: Carolina Gutierrez CLINIC NO.: [id number] DATE: 05/01/2024 Interval Hx: Patient presents with: [...] Yes Steve Gambino PA-C Orthopaedic Surgery Department [facility] 05/01/2024 11:06 [facility]11-01-2024 History of Present illness Narrative* Steve Gambino PA - 05/01/2024 11:02 AM EDT Steve Gambino PA-C, [facility] Orthopaedic Surgery at [place] [address] Office: [phone] NAME: Carolina Gutierrez CLINIC NO.: [id number] DATE: 05/01/2024 Interval Hx: Patient presents with: [...] Yes Steve Gambino PA-C Orthopaedic Surgery Department [facility] 05/01/2024 11:06 AM documented in this encounterKettering Health [facility]10-25-2024 Telephone encounter Note * Telephone Encounter - [...] with Dr. Holly about possible antibiotic change. [facility]10-25-2024 Miscellaneous Notes* Telephone Encounter - Steve Gambino [...] about possible antibiotic change. documented in this encounterKettering Health [facility]10-23-2024 History of Present illness Narrative* Steve Gambino [...] transmitted electronically. ALIA Sanders documented in this encounterKettering Health [facility]10-23-2024 NoteHNO ID: [id number] Author: STEVE GAMBINO PA Service: ? Author Type: Physician Relay Associate Type: Progress Notes Filed: 04/22/2024 09:50 Note [...] requests have been transmitted electronically. Steve Gambino, [facility]10-23-2024 History of Present illness Narrative* Zia Patel [...] PATIENT PRESENTS WITH AN IMPLANTABLE OR ATTACHED SAMPLER RADIOACTIVE WASTE: No RADIOLOGY DEPARTMENT: General X-ray: Exam(s) Completed: Upper Extremity X- Ray(s): Shoulder, AP / TRUE AP / AXILLARY left PERIPHERAL IV DATA: Not applicable SIGNED BY: RT Emily(R) April 22, 2024 9:14 AM documented in this encounterKettering Health Springfield10-23-2024 NoteHNO ID: [id number] Author: ZIA PATEL RT(R) Service: ? Author Type: Regional Driver Type: Progress Notes Filed: 04/22/2024 09:15 Note [...] PATIENT PRESENTS WITH AN IMPLANTABLE OR ATTACHED SAMPLER RADIOACTIVE WASTE: No RADIOLOGY DEPARTMENT: General X-ray: Exam(s) Completed: Upper Extremity X-Ray(s): Shoulder, AP / TRUE AP / AXILLARY left PERIPHERAL IV DATA: Not applicable SIGNED BY: Zia Patel, RT(R) April 22, 2024 9:14 [facility]10-21-2024 Instructions* Patient Instructions* Steve Gambino PA - 04/20/2024 10:48 AM EDT - Stop at the service desk team lead to schedule a follow up with Dr. [...] pools, baths, hot tubs documented in this encounterKettering Health [facility]10-21-2024 Telephone encounter Note * Telephone Encounter - Sharita Antonio RN - 04/20/2024 9:45 AM EDT DOS: 04/14/24 Type of surgery: REMOVAL OF PROSTHESIS, INCLUDES DEBRIDEMENT AND SYNOVECTOMY WHEN PERFORMED; HUMERAL AND GLENOID COMPONENTS (EG, TOTAL SHOULDER) (Left) Catheter site: left IS Solution: 0.2% Ropivacaine Rates: 59 Venkata [phone] Carolina 04/20/24: Pt removed catheter yesterday without issue. Pain tolerable. [facility]10-21-2024 Miscellaneous Notes* Telephone Encounter - Sharita Antonio RN - 04/20/2024 9:45 AM EDT DOS: 04/14/24 Type of surgery: REMOVAL OF PROSTHESIS, INCLUDES DEBRIDEMENT AND SYNOVECTOMY WHEN PERFORMED; HUMERAL AND GLENOID COMPONENTS (EG, TOTAL SHOULDER) (Left) Catheter site: left IS Solution: 0.2% Ropivacaine Rates: 59 Venkata [phone] [facility] 04/20/24: Pt removed catheter yesterday without issue. Pain tolerable. * Telephone Encounter - Britt Lopez APRN.CNP - 04/18/2024 1:35 PM EDT DOS: 04/14/24 Type of surgery: REMOVAL OF PROSTHESIS, INCLUDES DEBRIDEMENT AND SYNOVECTOMY WHEN PERFORMED; HUMERAL AND GLENOID COMPONENTS (EG, TOTAL SHOULDER) (Left) Catheter site: left IS Solution: 0.2% Ropivacaine Rates: 59 Venkata [phone] [facility] 04/18/24: Called and talked to pt, [...] IS Solution: 0.2% Ropivacaine Rates: 59 Venkata [phone] Carolina 04/17 Called and talked to pt, [...] Solution: 0.2% Ropivacaine Rates: 59 Venkata Herrmann [phone] Carolina 04/16 Called and talked to pt, [...] IS Solution: 0.2% Ropivacaine Rates: 59 Venkata [phone] Carolina Switched to home-going pump, educated on its use, discussed LA/SE and s/s that should be reported, patient/famiyl verbalized understanding. Will follow up with phone call. documented in this encounterKettering Health [facility]10-19-2024 Telephone encounter Note * Telephone Encounter - Britt Lopez APRN.CNP - 04/18/2024 1:35 PM EDT DOS: 04/14/24 Type of surgery: REMOVAL OF PROSTHESIS, INCLUDES DEBRIDEMENT AND SYNOVECTOMY WHEN PERFORMED; HUMERAL AND GLENOID COMPONENTS (EG, TOTAL SHOULDER) (Left) Catheter site: left IS Solution: 0.2% Ropivacaine Rates: 59 Venkata [phone] Carolina 04/18/24: Called and talked to pt, [...] to stop and remove nerve block tomorrow. [facility] Work Phone: [phone] Telephone encounter Note* Telephone Encounter - Elvi Cook RN - 04/17/2024 1:13 PM EDT DOS: 04/14/24 Type of surgery: REMOVAL OF PROSTHESIS, INCLUDES DEBRIDEMENT AND SYNOVECTOMY WHEN PERFORMED; HUMERAL AND GLENOID COMPONENTS (EG, TOTAL SHOULDER) (Left) Catheter site: left IS Solution: 0.2% Ropivacaine Rates: 59 Venkata [phone] Carolina 04/17 Called and talked to pt, [...] the last 24 hours? tylenol and oxycodone [facility]10-17-2024 Telephone encounter Note* Telephone Encounter - Elvi Cook RN - 04/16/2024 9:24 AM EDT DOS: 04/14/24 Type of surgery: REMOVAL OF PROSTHESIS, INCLUDES DEBRIDEMENT AND SYNOVECTOMY WHEN PERFORMED; HUMERAL AND GLENOID COMPONENTS (EG, TOTAL SHOULDER) (Left) Catheter site: left IS Solution: 0.2% Ropivacaine Rates: 59 Venkata [phone] Carolina 04/16 Called and talked to pt, [...] used in the last 24 hours? oxycodone [facility]10-16-2024 Telephone encounter Note* Telephone Encounter - Jeny Arriaza APRN.CNP - 04/15/2024 1:46 PM EDT DOS: 04/14/24 Type of surgery: REMOVAL OF PROSTHESIS, INCLUDES DEBRIDEMENT AND SYNOVECTOMY WHEN PERFORMED; HUMERAL AND GLENOID COMPONENTS (EG, TOTAL SHOULDER) (Left) Catheter site: left IS Solution: 0.2% Ropivacaine Rates: 59 Venkata [phone] [place] Switched to home-going pump, educated on its use, discussed LA/SE and s/s that should be reported, patient/famiyl verbalized understanding. Will follow up with phone call. [facility]10-16-2024 NoteHNO ID: [id number] Author: ROXANNA BOLANOS PA-C Service: Orthopaedic Surgery Author Type: Physician Relay Associate Type: Plan of Care Filed: 04/15/2024 12:16 [...] this patient's care. Roxanna Bolanos PA-C Physician Relay Associate I Orthopaedic Surgery [facility] [place] [phone] Between 5 PM (17:00) - 7 AM (07:00) during weekdays (Mon - Sat), all day on weekends (Sat AND Sun), or if urgent, please page on-call orthopaedic surgery resident for any issues at: [facility] ([phone]) for [place] patientsOhio[facility]10-16-2024 Note HNO ID: [id number] Author: ANDREW JAIMES MD Service: Orthopaedic Surgery [...] day Andrew Jaimes MD PGY-3 Orthopaedic Surgery [facility] Between 5PM to 7AM, or if urgent, please page the orthopaedic on-call resident at: [facility] ([phone]) for [facility] patients [phone] for [facility] patients [phone] for [facility] patients [phone] for [facility] patients If no response from 1st page within 15 minutes, please contact Ortho PA: ALIA Velasquez: ALIA Castro: Roxanna Byers PA: Cate Zavala PA: [facility]10-15-2024 NoteHNO ID: [id number] Author: MER EMANUEL APRN.CORE PLACER Service: ? Author Type: Nurse Stone Layer Type: Anesthesia Procedure Notes Filed: 04/14/2024 09:22 [...] April 14, 2024 TIME: 9:20 AM CSN: [id number] Community Hospital10-15-2024 NoteHNO ID: [id number] Author: MER EMANUEL APRN.CORE PLACER Service: ? Author Type: Nurse Stone Layer Type: Anesthesia Procedure Notes Filed: 04/14/2024 09:20 Note Text: ANESTHESIOLOGY PROCEDURE NOTE Airway General Information Procedure Start Time/Medication Administration: 04/14/2024 8:14 AM Procedure End Time: 04/14/2024 8:14 AM Patient location during procedure: OR Patient identity confirmed: arm band and patient Staffing CORE PLACER: Mer Emanuel APRN.CORE PLACER Performed by: KAREN Indications and Patient Condition Indications for airway management: anesthesia Preoxygenated: yes anesthesia circuit Patient position: sniffing Method: asleep Difficult Mask: No Airway Accessory: oral airway Final Airway Details Final airway type: endotracheal airway Final Endotracheal Airway: ETT Cuffed: yes Successful intubation technique: video laryngoscopy Devices used: Qustreet Endotracheal tube insertion site: oral Blade: [place] Blade size: #3 ETT size (mm): 7.0 Measured from: lips Measurement (cm): 21 Placement verified by: capnometry Cormack-Lehane Classification: grade I - full view of glottis Number of attempts at approach: 1 Airway not difficult SIGNATURE: Mer Emanuel APRN.CRNA PATIENT NAME: Carolina Manning Alt DATE: April 14, 2024 TIME: 9:20 AM CSN: [id number] Community Hospital10-15-2024 NoteHNO ID: [id number] Author: MISAEL VALVERDE MD Service: ? Author Type: Resident Type: Anesthesia Procedure Notes Filed: 04/14/2024 08:45 Note Text: Attestation signed by Desean Solitario MD at 04/14/2024 8:54 AM I was present for the entire procedure supervising the resident and participated in the perez components of the procedure. Pt tolerated the procedure well with out any complications. Desean Solitario MD. Staff Anesthesiologist Pgr: [phone] ANESTHESIOLOGY PROCEDURE NOTE Peripheral Nerve Block General [...] April 14, 2024 TIME: 8:42 AM CSN: [id number] Community Hospital10-09-2024 Telephone encounter Note* Telephone Encounter - Lanny Pérez RN - 04/08/2024 10:13 AM EDT Pt called office stating on antibiotics for saliva gland inflammation Pt states no infection per dentist. Pt put on Clindaymcin 300mg for one week-per Dr. Elayne oro to proceed. Pt updated, willcall with any further symptoms or concerns, direct office number provided. [facility]10-09-2024 Miscellaneous Notes* Telephone Encounter - Lanny Pérez RN - 04/08/2024 10:13 AM EDT Pt called office stating on antibiotics for saliva gland inflammation Pt states no infection per dentist. Pt put on Clindaymcin 300mg for one week-per Dr. Elayne oro to proceed. Pt updated, willcall with any further symptoms or concerns, direct office number provided. documented in this encounterKettering Health [facility]10-04-2024 Telephone encounter Note * Telephone Encounter - [...] reimplantation of the reverse total shoulder arthroplasty. [facility] Work Phone: 1(898) 913-464210-04-2024 Miscellaneous Notes* Telephone Encounter - Steve Gambino [...] EDT Insurance Name Rosita Patient's Insurance Case# [id number] Ordering Provider John Holly Denied Services 50076 - REVISION JOINT TOTAL SHOULDER Our goal is to proceed with a two-stage revision with the for stage being removal of the current total shoulder arthroplasty and placement of antibiotic spacer. With hopeful revision surgery coming in 3 months. Possible code - PROSTHESIS REMOVAL HUMERAL AND GLENOID COMPONENT [84621 (CPT )] Peer [place] [address] is denied as that is for shoulder [...] outline of our plan. documented in this encounterKettering Health [facility]10-02-2024 Telephone encounter Note * Telephone Encounter - Steve Gambino PA - 04/01/2024 3:52 PM EDT Insurance Name Rosita Patient's Insurance Case# [id number] Ordering Provider John Holly Denied Services [address]11 - REVISION JOINT TOTAL SHOULDER Our goal is to proceed with a two-stage revision with the for stage being removal of the current total shoulder arthroplasty and placement of antibiotic spacer. With hopeful revision surgery coming in 3 months. Possible code - PROSTHESIS REMOVAL HUMERAL AND GLENOID COMPONENT [75846 (CPT )] [place] [address] is denied as that is for shoulder [...] codes and an outline of our plan. [facility]09-30-2024 Instructions* Patient Instructions* Serge Ty PA-C - 03/30/2024 3:37 PM EDT PATIENT PREOPERATIVE INSTRUCTIONS [place] Scheduling Office: [phone] --[address] [place] [address]. Please read below carefully for your personalized instructions. Arrival Time for Surgery: - To obtain your arrival time for surgery, call your physician's office the day before your surgery. - If your surgery is scheduled for Saturday, call the Saturday before. Your surgeon s shipbuilding draftsperson will tell you what time to call the office. - If you have not reached the departmental shipbuilding draftsperson by 5 P.M., call [phone] after 5 P.M. the day before your [...] Procedures: - YOU MUST HAVE A RESPONSIBLE INFORMATION TECHNOLOGY AUDITOR TAKE YOU HOME. A FIBERGLASS ROLLER OR NEON SIGN INSTALLER CANNOT BE MADE A RESPONSIBLE INFORMATION TECHNOLOGY AUDITOR. - We recommend that a responsible person [...] Advance Directive, please fax a copy to [phone] or email to for it to be [...] your chart that day. documented in this encounterKettering Health [facility]09-30-2024 History and physical note * Serge Ty PA-C - 03/30/2024 3:10 PM EDT Images from the original note were not included. [place] [facility] Pre-Anesthesia Consultation [facility] HISTORY AND PHYSICAL EXAMINATION SERVICE DATE: 03/30/2024 SERVICE TIME: 3:33 PM PRIMARY CARE PHYSICIAN: Berry Beth, MEAT TEAM MEMBER, QUALITY ASSURANCE SUPERVISOR, MEAT TEAM MEMBER.QUALITY ASSURANCE SUPERVISOR Assessment Patient has the following medical conditions which may affect merary-operative course: PONV (postoperative nausea and vomiting) Assessment: Pt reports PONV with previous surgeries/procedures. Asthma without status asthmaticus Assessment: Stable, well controlled on Singulair BID, Advair and Spiriva. Pt reports that she uses albuterol rarely. Follows with outside allergy Dr. Hernandez [facility] 03/25/[address] Del Rio [facility] 02/04/24. Lungs CTAB, SpO2 97% on RA. Hyperlipidemia Assessment: No RX currently. Monitored by PCP. Elevated blood pressure reading in office with white coat syndrome, without diagnosis of hypertension Assessment: BP today 119/74. Pt was recently started on metoprolol for IST per outside cardiology. Inappropriate sinus tachycardia (HCC) Assessment: Stable, on metoprolol. Follows with outside cardiology at [facility] 03/23/24 Oswald Curry PA-C. Pt reports [...] during sleep Non-male patient STOP-Bang Score: 5 [id number] Score: Age: <65 Sex: female CHF history: No Hypertension history: Yes Stroke/TIA/thromboembolism history: Yes Vascular disease history: No Diabetes history: Yes [id number] Score: 5 ANESTHESIA FINDINGS: Intubation History: No [...] Initiated: Orders placed by surgeon/surgical service in [facility]. Orders Placed This Encounter Hemoglobin A1C Standing [...] fevers. Neurological: No history of TIA's, stroke, SECOND HELPER tumor, impaired sensorium, hemiplegia, paraplegia orquadraplegia. 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, was treated with Xarelto x 1 year), hyperlipidemia and hypertension Negative for: AICD/PPM, arrhythmia, atrial fibrillation, CHF, recent CA, murmur/valvular heart disease, PTCA, open heart surgery [...] Cancer Mother Cerebral Embolism Father CVA, aneurysm, CA, other (normal [Other]) Sister None Sister None Sister Breast Cancer No Family History no known family h/o breast or ovarian cancer Anesthesia Problems No Family History Social History Tobacco Use Smoking status: Never Smokeless tobacco: Never Vaping Use Vaping status: Never Used Substance Use Topics Alcohol use: Yes Comment: week-ends Drug use: No Prior to Admission medications as of 03/30/24 9192 Medication Sig Last Dose Taking L.acidophilus-L.rhamnosus (PROBIOTIC) [...] fluticasone (FLONASE) 50 mcg/actuation nasal spray 1 [place] daily at bedtime. in each nostril. Taking [...] 382 QTC Calculation (Bazett) 424 Calculated P Gresh[place] 46 Calculated R Gresham 2 Calculated T Gresham 102 Impression NORMAL SINUS RHYTHM POSSIBLE LEFT ATRIAL ENLARGEMENT NONSPECIFIC T WAVE ABNORMALITY ABNORMAL ECG Confirmed by MD GRANT, [facility] ([id number]) on 12/22/2023 10:02:40 PM Instructions Given to Patient: Instructions located in the after visit summary. Patient given verbal and written preop instructions and voices comprehension and compliance. SIGNATURE: Serge Ty PA-C PATIENT NAME: Carolina Gutierrez DATE: 03/30/2024 TIME: 3:33 PM PAGER/CONTACT #: [facility]09-30-2024 History and physical note* Serge Ty PA-C - 03/30/2024 3:10 PM EDT Images from the original note were not included. [facility] HISTORY AND PHYSICAL EXAMINATION SERVICE DATE: 03/30/2024 SERVICE TIME: 3:33 PM PRIMARY CARE PHYSICIAN: Berry Beth, MEAT TEAM MEMBER, QUALITY ASSURANCE SUPERVISOR, MEAT TEAM MEMBER.QUALITY ASSURANCE SUPERVISOR Assessment Patient has the following medical conditions which may affect merary-operative course: PONV (postoperative nausea and vomiting) Assessment: Pt reports PONV with previous surgeries/procedures. Asthma without status asthmaticus Assessment: Stable, well controlled on Singulair BID, Advair and Spiriva. Pt reports that she uses albuterol rarely. Follows with outside allergy Dr. Hernandez [facility] 03/25/[address] Del Rio [facility] 02/04/24. Lungs CTAB, SpO2 97% on RA. Hyperlipidemia Assessment: No RX currently. Monitored by PCP. Elevated blood pressure reading in office with white coat syndrome, without diagnosis of hypertension Assessment: BP today 119/74. Pt was recently started on metoprolol for IST per outside cardiology. Inappropriate sinus tachycardia (HCC) Assessment: Stable, on metoprolol. Follows with outside cardiology at [facility] 03/23/24 Oswald Curry PA-C. Pt reports [...] during sleep Non-male patient STOP-Bang Score: 5 [id number] Score: Age: <65 Sex: female CHF history: No Hypertension history: Yes Stroke/TIA/thromboembolism history: Yes Vascular disease history: No Diabetes history: Yes [id number] Score: 5 ANESTHESIA FINDINGS: Intubation History: No [...] Initiated: Orders placed by surgeon/surgical service in [facility]. Orders Placed This Encounter Hemoglobin A1C Standing [...] fevers. Neurological: No history of TIA's, stroke, SECOND HELPER tumor, impaired sensorium, hemiplegia, paraplegia orquadraplegia. No neurological symptoms or problems. Respiratory: Positive for: asthma (on Singulair, Advair, Spiriva, albuterol PRN (rare use), follows with outsideallergy Dr. Hernandez [facility] 03/25/[address] Del Rio [facility] 02/04/24). Negative for: bronchitis, COPD, current cough, home oxygen, pneumonia within 6 weeks, tobacco use, URI < 2 weeks and obstructive sleep apnea. 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 in each nostril. Taking [...] 382 QTC Calculation (Bazett) 424 Calculated P G[place] 46 Calculated R Gresh[place] 2 Calculated T G[place] 102 Impression NORMAL SINUS RHYTHM POSSIBLE LEFT ATRIAL ENLARGEMENT NONSPECIFIC T WAVE ABNORMALITY ABNORMAL ECG Confirmed by MD GRANT, [facility] ([id number]) on 12/22/2023 10:02:40 PM Instructions Given to Patient: Instructions located in the after visit summary. Patient given verbal and written preop instructions and voices comprehension and compliance. SIGNATURE: Serge Ty PA-C PATIENT NAME: Carolina Gutierrez DATE: 03/30/2024 TIME: 3:33 PM PAGER/CONTACT #: [facility] History of Present illness Narrative* Adam Hernandez [...] in the office today. documented in this encounterOzarks Community HospitalOzvunjsttl13-28-9138 History of Present illness Narrative* Aline Arriaza [...] Depression: Not at risk (11/03/2023) Received from [facility] PHQ-2 PHQ-2 score: 0 REVIEW OF SYMPTOMS: [...] management took 35 minutes. documented in this encounterOzarks Community HospitalCkldhtinzp04-66-8722 History of Present illness Narrative* Adam Hernandez [...] survey at that time. documented in this encounterOzarks Community HospitalZeyxtvfoco99-70-2315 Telephone encounter Note* Telephone Encounter - Mary Layne LPN - 02/27/2024 1:57 PM EDT PA for [facility] submitted via Cover My Meds. Perez: [email or web address] Your request has been approved PA Case: [id number], Status: Approved, Coverage Starts on: 02/27/2024 12:00:00 AM, Coverage Ends on: 02/26/2025 12:00:00 AM. [facility]08-29-2024 Miscellaneous Notes* Telephone Encounter - Mary Layne LPN - 02/27/2024 1:57 PM EDT PA for [facility] submitted via Cover My Meds. Perez: [email or web address] Your request has been approved PA Case: [id number], Status: Approved, Coverage Starts on: 02/27/2024 12:00:00 AM, Coverage Ends on: 02/26/2025 12:00:00 AM. documented in this encounterK[facility] Telephone encounter Note * Telephone Encounter - [...] number for any further questions or concerns. [facility]08-09-2024 Miscellaneous Notes* Telephone Encounter - Lanny Pérez [...] further questions or concerns. documented in this encounterK[facility]07-30-2024 NoteMicrobiology PROCEDURE: Blood Culture Charcoal [R1] SOURCE: Blood BODY SITE: Arm L COLLECTED DATE/TIME: 01/20/2024 22:40 EDT RECEIVED DATE/TIME: 01/20/2024 23:25 EDT START DATE/TIME: 01/20/2024 23:25 EDT FREE TEXT SOURCE: Peripheral vein site #1 Shalom [place] DO, DO, Kaylinn A FINAL REPORTS Final Report [] Verified Date/Time: 01/28/2024 00:00 EDT No growth at 7 days. Performing Locations R1: This test was performed at: [facility], [address] [place] [address], [id number] , , HnzwguToledo HospitalComment on above:Performed By: #### [id number] #### [facility] [address] [place] [address] [id number] NoteMicrobiology PROCEDURE: Blood Culture Charcoal [R1] SOURCE: [...] Locations R1: This test was performed at: [facility], [address] [place] [address], [id number], BdcefaToledo HospitalComment on above:Performed By: #### [id number] #### [facility] [address] [place] [address] [id number] Hospital Discharge instructions Patient Education 01/27/2024 16:00:41 [...] a specialist, such as an eye doctor (marketing associate) or an ear, nose, and throat (ENT) doctor (fishing game warden) to help you avoid eye problems, chronic pain, or disability. Follow these instructions at home: Medicines Take myue-fuc-fsgwqwb and prescription medicines only as told by [...] your health care provider. This is an qzll-aca-uehieds lotionthat helps to relieve itchiness. Blister and rash care Keep your rash covered with a loose bandage (dressing). Wear loose-fitting clothing to help ease the pain of material rubbing against the rash. Wash your hands with soap and water for at least 20 seconds before and after you change your dressing. If soap and water are not available, use hand clerk of works. Change your dressing as told by your [...] and water are not available, use hand clerk of works. Doing this lowers your chance of getting [...] provider. Document Revised: 06/12/2021 Document Reviewed: 06/12/2021 [employer] Patient Education 2022 [employer]. Follow Up Care 01/27/2024 12:48:42 With:Berry Canales FAM, MED Address:Unknown When: Unknown [facility] 07-29-2024 NotePatient Education Infectious [...] a specialist, such as an eye doctor (marketing associate) or an ear, nose, and throat (ENT) doctor (fishing game warden) to help you avoid eye problems, chronic pain, or disability. Follow these instructions at home: Medicines ? Take sdth-lmj-xxbgled and prescription medicines only as told by [...] your health care provider. This is an alfj-lln-nhwcocm lotion that helps to relieve itchiness. Blister and rash care ? Keep your rash covered with a loose bandage (dressing). Wear loose-fitting clothing to help ease the pain of material rubbing against the rash. ? Wash your hands with soap and water for at least 20 seconds before and after you change your dressing. If soap and water are not available, use hand clerk of works. ? Change your dressing as told by [...] and water are not available, use hand clerk of works. Doing this lowers your chance of getting [...] How is this prevented (more content not included)...[facility] 01-24-2024 Evaluation + Plan noteExtracted from: [...] tab(s), Oral, Daily, 3 refills Potassium Chloride (Cqb-Pgtf-Ybn M20) 20 mEq oral tablet, extended release, [...] x 2 no growth to date Ordered: [facility] Hospital Care/Day Moderate 35 Minutes 37040 2. Cellulitis (L03.90: Cellulitis, unspecified) See above Continue IV meropenem and vancomycin Ultrasound of the right leg shows diffuse subcutaneous edema and skin thickening associated with cellulitis and no well-defined loculated drainable collection sonographically Ordered: [facility] Hospital Care/Day Moderate 35 Minutes 20409 3. Leukocytosis (D72.829: Elevated white blood cell count, unspecified) Secondary to #1 and 2 above White count down to 10.9 but still with a left shift of 88.7% neutrophils Cultures no growth to date Ordered: [facility] Hospital Care/Day Moderate 35 Minutes 93345 4. Asthma (J45.909: Unspecified asthma, uncomplicated) Maintain budesonide twice daily and DuoNebs 4 times daily as needed with albuterol every 2 hours as needed as well Ordered: [facility] Hospital Care/Day Moderate 35 Minutes 39793 5. History of colitis (Z87.19: Personal history of other diseases of the digestive system) Stable Ordered: [facility] Hospital Care/Day Moderate 35 Minutes 85266 6. DM2 (diabetes mellitus, type 2) (E11.9: Type 2 diabetes mellitus without complications) Sliding-scale insulin coverage for diabetes Ordered: [facility] Hospital Care/Day Moderate 35 Minutes 69864 7. Gastroesophageal reflux disease without esophagitis (K21.9: Gastro-esophageal reflux disease without esophagitis) Maintain p.o. PPI Ordered: [facility] Hospital Care/Day Moderate 35 Minutes 26039 8. Hypothyroidism (E03.9: Hypothyroidism, unspecified) Continue levothyroxine Ordered: [facility] Care/Day Moderate 35 Minutes 86331 9. Obesity (E66.9: Obesity, unspecified) Therapeutic lifestyle modification changes in the outpatient setting Ordered: [facility] Care/Day Moderate 35 Minutes 71901 10. Skin cancer (C44.90: Unspecified malignant neoplasm of skin, unspecified) Will need follow-up with oncology in the outpatient setting Ordered: [facility] Care/Day Moderate 35 Minutes 74049 11. On deep vein thrombosis (DVT) prophylaxis (Z79.899: Other intermediate (current) drug therapy) Subcu enoxaparin Ordered: [facility] Care/Day Moderate 35 Minutes 42608 Sinus tachycardia (R00.0: Tachycardia, unspecified) Orders: insulin [...] vein thrombosis (DVT) prophylaxis (Z79.899: 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) drug therapy) Subcu enoxaparin Sinus tachycardia [...] fluid. Lasix on hold. Follow cultures. Ordered: [facility] Hospital Care/Day Moderate 35 Minutes 97826 2. Cellulitis (L03.90: Cellulitis, unspecified) Acute right leg cellulitis present on admission. Continue on IV meropenem and vancomycin. On IV fluid. Follow cultures. DVT study pending. Ordered: [facility] Hospital Care/Day Moderate 35 Minutes 08587 3. Leukocytosis (D72.829: Elevated white blood cell count, unspecified) Secondary to above. WBC trending down. Follow cultures. Repeat CBC in AM. Ordered: CBC w/ Auto Diff [facility] Hospital Care/Day Moderate 35 Minutes 99928 4. Asthma (J45.909: Unspecified asthma, uncomplicated) Clinically stable. Continue nebulizer treatments. [facility] Mod[facility] 35 Minutes 27474 5. History of colitis (Z87.19: Personal history of other diseases of the digestive system) Supportive care. On Rinvoq at home Ordered: [facility] Hospital Care/Day Moderate 35 Minutes 95272 6. DM2 (diabetes mellitus, type 2) (E11.9: [...] vein thrombosis (DVT) prophylaxis (Z79.899: 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) drug therapy) Lovenox. I discussed the diagnosis and plan of care with the patient at the bedside. Moderate level of MDM based on addressing above issues. This documentation was transcribed using voice recognition software. Several attempts were made to ensure accuracy. However inadvertent computerized web ui designer errors may be present. Alessandro Castañeda. Hospitalist. [...] deep vein thrombosis (DVT) prophylaxis (Z79.899: Other intermediate (current) drug therapy) SCD, enoxaparin Orders: acetaminophen, [...] Appointment Date:01/29/2024 02:00:00 PM Scheduled Provider:Berry Canales Location:[facility] Appointment Type: Hospital Follow Up w/TCM Future Scheduled Tests Laboratory* CBC w/ Auto Diff 05/10/23 [facility] 07-26-2024 Hospital Discharge instructions Patient Education 01/24/2024 [...] Follow these instructions at home: Medicines Take zgjw-jdm-hyvmubz and prescription medicines only as told by [...] such as antibiotic medicines or antihistamines. Take zzwi-jdm-xwuiyax and prescription medicines only as told by [...] provider. Document Revised: 03/28/2022 Document Reviewed: 03/29/2022 [employer] Patient Education 2022 [employer]. 01/24/2024 09:52:09 Cellulitis, Adult, Zprg-lo-Fxft Cellulitis, Adult Cellulitis is a skin infection. [...] Follow these instructions at home: Medicines Take edik-ppb-jiowpdk and prescription medicines only as told by [...] provider. Document Revised: 03/29/2022 Document Reviewed: 03/29/2022 [employer] Patient Education 2022 [employer]. Follow Up Care 01/20/2024 21:48:12 With:Berry Beth Address:Unknown When: Unknown Comments:Keep scheduled appointment [facility] 07-26-2024 NoteDischarge Summary Admission and Discharge Information Admit Date/Time:01/21/2024 01:16 Admitting Physician - Halle HOUSTON DO Consulting Physician - Kayleen Vee, Louis Marcial MD, Dmitriy Bradshaw. Admitting Diagnoses: Discharge Order Date Discharge with Home Health - Ordered -- 01/24/24 9:37:00 EDT, home with [facility] Discharge Diagnoses 1. Sepsis, 01/21/2024 2. Cellulitis, [...] q6hr, PRN, Not takin (more content not included)...[facility] Comment on above:Result Comment: Electronically Signed By: Lalo Boyd DO\Date and Time Signed: 01/24/24 10:54 [id number] NoteProgress Note-Physician Patient: CAROLINA GUTIERREZ Age: 63 [...] All Problems Allergic rhinitis / SNOMED CT 666285076 / Confirmed Anemia / SNOMED CT 711427689 / Confirmed Anti-citrullinated protein antibody detected / SNOMED CT 8704601888 / Confirmed Asthma / SNOMED CT 925834044 / Confirmed Adult BMI 38.0-38.9 kg/sq m / SNOMED CT 646619795 / Confirmed BMI 40.0-44.9, adult / SNOMED CT 6770221667 / Confirmed Morbid obesity with BMI of 40.0-44.9, adult / SNOMED CT 9404679157 / Confirmed Bronchitis / SNOMED CT 08367650 / Confirmed Oral thrush / SNOMED CT 142313405 / Confirmed Chronic peripheral venous hypertension with lower extremity complication / SNOMED CT 3055751181 / Confirmed Chronic sinusitis / SNOMED CT 79197451 / Confirmed Colitis / SNOMED CT 690843932 / Confirmed Cough / SNOMED CT 99511151 / Confirmed Derangement of knee / SNOMED CT 584304692 / Confirmed Diverticular disease / SNOMED CT 0536525791 / Confirmed Shortness of breath / SNOMED CT 739205257 / Confirmed Esophageal web / SNOMED CT 29996484 / Confirmed Exposure to COVID-19 virus / SNOMED CT 0886094420 / Confirmed Fluid level behind tympanic membrane of both ears / SNOMED CT 710875843 / Confirmed Gastroesophageal reflux disease without esophagitis / ICD-10-CM K21.9 / Confirmed History of colitis / SNOMED CT 408198036 / Confirmed Hx of pulmonary embolus / SNOMED CT 356762039 / Confirmed Low hemoglobin / SNOMED CT 2044104625 / Confirmed Hemorrhoids / SNOMED CT 408835083 / Confirmed Hypothyroidism / SNOMED CT 80237678 / Confirmed Hypoxemia / SNOMED CT 5653590835 / Confirmed Left lower lobe pneumonia / SNOMED CT 435823301 / Confirmed Moderate asthma without complication / SNOMED CT 6181378897 / Confirmed Lung nodules / SNOMED CT 3358984296 / Confirmed Nasal congestion / SNOMED CT 478552674 / Confirmed Obesity due to excess calories / SNOMED CT 1418625727 / Confirmed Bilateral otitis media / SNOMED CT 832902559 / Confirmed Right otitis media / SNOMED CT 643406571085523 / Confirmed Annual physical exam / SNOMED CT 638255996 / Confirmed Pre-op exam / SNOMED CT 762547666 / Confirmed Hospital discharge follow-up / SNOMED CT 2650112795 / Confirmed Rheumatoid arthritis involving multiple sites with positive rheumatoid factor / ICD-10-CM M05.79 / Confirmed Smoker / SNOMED CT 252414987 / Confirmed Added secondary to documentation in Social History. Non-insulin dependent type 2 diabetes mellitus / SNOMED CT 255959524 / Confirmed DM2 (diabetes mellitus, type 2) / SNOMED CT 065632888 / Confirmed Weight loss, unintentional / SNOMED CT 7331998099 / Confirmed Viral gastritis / SNOMED CT 495300691 / Confirmed Wheezing / SNOMED CT 41288726 / Confirmed Objective Vital Signs (last 24 [...] Review / Management Res (more content not included)...[facility] HospitalComment on above: Result Comment: Electronically Signed By: Louis Beyer M.D\.br\Date and Time Signed: 01/24/24 09:17 [id number] NoteProgress Note - Pharmacy Vancomycin Pharmacy to Dose Consult Note 1. VANCO STATUS: Vancomycin therapy has been discontinued. Vancomycin level(s) have been discontinued. Pharmacy vancomycin dosing service will sign off. Thank you for allowing us to participate in this patient's care. Please contact pharmacy if there are questions.[facility]07-23-2024 Note Consultation Note Patient: CAROLINA GUTIERREZ [...] All Problems Allergic rhinitis / SNOMED CT 550368097 / Confirmed Anemia / SNOMED CT 770156736 / Confirmed Anti-citrullinated protein antibody detected / SNOMED CT 3307364575 / Confirmed Asthma / SNOMED CT 765566901 / Confirmed Adult BMI 38.0-38.9 kg/sq m / SNOMED CT 284149675 / Confirmed BMI 40.0-44.9, adult / SNOMED CT 3862653826 / Confirmed Morbid obesity with BMI of 40.0-44.9, adult / SNOMED CT 8164616254 / Confirmed Bronchitis / SNOMED CT 24437412 / Confirmed Oral thrush / SNOMED CT 644947734 / Confirmed Chronic peripheral venous hypertension with lower extremity complication / SNOMED CT 4894339016 / Confirmed Chronic sinusitis / SNOMED CT 99302544 / Confirmed Colitis / SNOMED CT 079861924 / Confirmed Cough / SNOMED CT 30544074 / Confirmed Derangement of knee / SNOMED CT 610631944 / Confirmed Diverticular disease / SNOMED CT 6961042615 / Confirmed Shortness of breath / SNOMED CT 981577236 / Confirmed Esophageal web / SNOMED CT 98366043 / Confirmed Exposure to COVID-19 virus / SNOMED CT 6161854093 / Confirmed Fluid level behind tympanic membrane of both ears / SNOMED CT 714272147 / Confirmed Gastroesophageal reflux disease without esophagitis / ICD-10-CM K21.9 / Confirmed History of colitis / SNOMED CT 709015463 / Confirmed Hx of pulmonary embolus / SNOMED CT 923154541 / Confirmed Low hemoglobin / SNOMED CT 9685610802 / Confirmed Hemorrhoids / SNOMED CT 399987583 / Confirmed Hypothyroidism / SNOMED CT 58734701 / Confirmed Hypoxemia / SNOMED CT 6089690592 / Confirmed Left lower lobe pneumonia / SNOMED CT 060335173 / Confirmed Moderate asthma without complication / SNOMED CT 9907647659 / Confirmed Lung nodules / SNOMED CT 6669474588 / Confirmed Nasal congestion / SNOMED CT 725160720 / Confirmed Obesity due to excess calories / SNOMED CT 1289504990 / Confirmed Bilateral otitis media / SNOMED CT 467767242 / Confirmed Right otitis media / SNOMED CT 299848899793748 / Confirmed Annual physical exam / SNOMED CT 853980750 (more content not included)...[facility] above:Result Comment: Electronically Signed By: Louis Beyer M.D\Date and Time Signed: 01/21/24 14:05 [id number] Note Progress Note-Physician Assessment/Plan 63-year-old female with [...] fluid. Lasix on hold. Follow cultures. Ordered: [facility] Hospital Care/Day Moderate 35 Minutes 29036 2. Cellulitis (L03.90: Cellulitis, unspecified) Acute right leg cellulitis?present on admission. Continue on IV meropenem and vancomycin. On IV fluid. Follow cultures. DVT study?pending. Ordered: [facility] Hospital Care/Day Moderate 35 Minutes 38753 3. Leukocytosis (D72.829: Elevated white blood cell count, unspecified) Secondary to above. WBC trending down. Follow cultures. Repeat CBC in AM. Ordered: CBC w/ Auto Diff [facility] Hospital Care/Day Moderate 35 Minutes 72633 4. Asthma (J45.909: Unspecified asthma, uncomplicated) Clinically stable. Continue nebulizer treatments. Ordered: [facility] Hospital Care/Day Moderate 35 Minutes 51597 5. History of colitis (Z87.19: Personal history of other diseases of the digestive system) Supportive care. On Rinvoq at home Ordered: [facility] Hospital Care/Day Moderate 35 Minutes 04963 6. DM2 (diabetes mellitus, type 2) (E11.9: [...] vein thrombosis (DVT) prophylaxis (Z79.899: 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) drug therapy) Lovenox. I discussed the diagnosis and plan of care with the patient at the bedside. Moderate level of MDM based on addressing above issues. This documentation was transcribed using voice recognition software. Several attempts were made to ensure accuracy. However inadvertent computerized web ui designer errors may be present. Alessandro Castañeda. Hospitalist. [...] for age, normal dinesh (more content not included)...[facility] Hospital[facility] on above:Result Comment: Electronically Signed By: CÉSAR HDZ, Susianefo\.br\Date and Time Signed: 01/21/24 09:16 [id number] NoteProgress Note - Pharmacy Vancomycin Pharmacy to [...] have any questions, please contact pharmacy at 1919. Age: 63 Years Allergies: ALLERGIES Weight: Last [...] 22:40:00) Lymph Auto: 5 % Low (01/20/24:40:00) [place] Auto: 2 % Low (01/20/24:40:00) Eos Auto: 0.2 % (01/20/24:40:00) Basophil Auto: 0.2 % (01/20/24:40:00) Neutro Absolute: 13.8 E9/L High (01/20/24:40:00) Lymph Absolute: 0.7 E9/L Low (01/20/24:40:00) [place] Absolute: 0.3 E9/L (01/20/24:40:00) Eos Absolute: 0 [...] (01/21/24 01:31:00) UA Leuk Est: Negat (01/21/24 01:31:00)[facility]-23-2024 Note Progress Note-Nurse This nurse called [...] and he ordered the vancomycin 1500mg/IV to start.[facility]07-23-2024 NoteHistory and Physical Basic Information Admit [...] (01/20/24:40:00) Lymph Auto: 5 % Low (01/20/24:40:00) [place] Auto: 2 % Low (01/20/24:40:00) Eos Auto: 0.2 % (01/20/24:40:00) Basophil Auto: 0.2 % (01/20/24:40:00) Neutro Absolute: 13.8 E9/L High (01/20/24:40:00) Lymph Absolute: 0.7 E9/L Low (01/20/24:40:00) [place] Absolute: 0.3 E9/L (01/20/24:40:00) Eos Absolute: 0 [...] Bili Total: 1.1 mg/d (more content not included)...[facility] Comment on above:Result Comment: Electronically Signed By: Halle HOUSTON DO\.dusty\Date and Time Signed: 01/21/24 03:22 [id number] NoteMicrobiology PROCEDURE: Blood Culture Charcoal [R1] SOURCE: Blood BODY SITE: Wrist R COLLECTED DATE/TIME: 01/04/2024 17:53 EDT RECEIVED DATE/TIME: 01/04/2024 18:02 EDT START DATE/TIME: 01/04/2024 18:02 EDT FREE TEXT SOURCE: Keisha Garsia PA-C. Keisha Garsia PA-C. FINAL REPORTS Final Report [] Verified Date/Time: 01/11/2024 21:00 EDT No growth at 7 days. Performing Locations R1: This test was performed at: [facility], [address] [place] [address], [id number] , , RyhtlnToledo HospitalComment on above:Performed By: #### [id number] #### [facility] [address] [place] [address] [id number] NoteMicrobiology PROCEDURE: Blood Culture Charcoal [R1] SOURCE: Blood BODY SITE: Arm L COLLECTED DATE/TIME: 01/04/2024 17:52 EDT RECEIVED DATE/TIME: 01/04/2024 18:01 EDT START DATE/TIME: 01/04/2024 18:01 EDT FREE TEXT SOURCE: Keisha Garsia PA-C, PA-C, Keisha Olivas. FINAL REPORTS Final Report [] Verified Date/Time: 01/11/2024 21:00 EDT No growth at 7 days. Performing Locations R1: This test was performed at: [facility], [address] [place] [address], [id number] [place] [address], FtkersToledo HospitalComment on above:Performed By: #### [id number] #### [facility] [address] [place] [address] [id number] Evaluation + Plan noteExtracted from: Title:Discharge Note [...] Berry Beth 01/16/2024 02:00 PM EDT [address] [facility] (1) Additional Instructions: Extracted from: Title:Progress/SOAP [...] secondary to colitis Will saline lock Ordered: [facility] Hospital Care/Day Moderate 35 Minutes 92047 2. Nausea and vomiting (R11.2: Nausea with vomiting, unspecified) Resolved Saline lock fluids Antiemetics as needed Ordered: [facility] Hospital Care/Day Moderate 35 Minutes 31329 3. Lactic acidosis (E87.20: Acidosis, unspecified) Resolved Ordered: [facility] Hospital Care/Day Moderate 35 Minutes 96246 4. Leukocytosis (D72.829: Elevated white blood cell count, unspecified) Still with a leukocytosis with a white count of 16.5 with 9197.1% neutrophilic shift Secondary to colitis Day 2 IV ciprofloxacin and metronidazole Ordered: [facility] Hospital Care/Day Moderate 35 Minutes [id number] Orders: ciprofloxacin + Dextrose 5% in Water [...] Ordered: Initial Hospital Care/Day Moderate 55 Minutes [id number] 2. Nausea and vomiting (R11.2: Nausea with vomiting, unspecified) Fluid hydration Clear liquids Antiemetics as needed Ordered: Initial Hospital Care/Day Moderate 55 Minutes 35722 3. Lactic acidosis (E87.20: Acidosis, unspecified) Lactic acid levels trended down to normal Ordered: Initial Hospital Care/Day Moderate 55 Minutes 88082 4. Leukocytosis (D72.829: Elevated white blood cell count, unspecified) May be secondary to the nausea/vomiting and diarrhea plus she was on steroids White count down to 17.4 with 91.8% neutrophilic shift Ordered: Initial Hospital Care/Day Moderate 55 Minutes [id number] Orders: acetaminophen, 650 mg = 2 tab(s), [...] Appointment Date:01/16/2024 02:00:00 PM Scheduled Provider:Berry Canales Location:[facility] Appointment Type: Hospital Follow Up w/TCM Diagnostic Tests Pending * UA with Cult Rflx 01/08/24 Future Scheduled Tests Laboratory* CBC w/ Auto Diff 05/10/23 [facility]07-13-2024 Hospital Discharge instructions Patient Education 01/11/2024 09:34:40 Diarrhea, Adult, Bujm-tw-Exqc Diarrhea, Adult Diarrhea is when you pass [...] sugar or caffeine in them. Eat bland, wbxk-aj-rukkbd foods in small amounts as you are able. These foods include: ?Bananas. ?Applesauce. ?Rice. ?Low-fat (lean) meats. ?[place]. ?Crackers. Avoid alcohol. Avoid spicy or fatty foods. Medicines Take knvq-dwv-lnzezpl and prescription medicines only as told by your doctor. If you were prescribed an antibiotic medicine, take it as told by your doctor. Do not stop using the antibiotic even if you start to feel better. General instructions Wash your hands often using soap and water. If soap and water are not available, use a hand clerk of works. Others in your home should wash their [...] sold at pharmacies and stores. Eat bland, akro-ha-giqqwl foods in small amounts as you are [...] provider. Document Revised: 09/07/2022 Document Reviewed: 12/27/2021 [employer] Patient Education 2022 [employer]. 01/11/2024 09:34:31 Nausea, Adult, Whpc-ig-Cmyf Nausea, Adult Nausea is feeling like you [...] fruit juice). ?Low-calorie sports drinks. Eat bland, jskt-nl-gaxydo foods in small amounts as you are able, such as: ?Bananas. ?Applesauce. ?Rice. ?Low-fat (lean) meats. ?[place]. ?Crackers. Avoid drinking fluids that have a lot of sugar or caffeine in them. This includes energy drinks, sports drinks, and soda. Avoid alcohol. Avoid spicy or fatty foods. General instructions Take qxvi-pmh-hkzxzri and prescription medicines only as told by [...] cannot use soap and water, use hand clerk of works. Make sure that everyone in your home [...] drink what your doctor tells you. Take rohb-qqa-ybuthlp and prescription medicines only as told by your doctor. Contact a doctor right away if your symptoms get worse or you have new symptoms. Keep all follow-up visits. This information is not intended to replace advice given to you by your health care provider. Make sure you discuss any questions you have with your health care provider. Document Revised: 12/22/2021 Document Reviewed: 12/22/2021 [employer] Patient Education 2022 [employer]. Follow Up Care 01/08/2024 07:50:34 With:Berry Beth Address: [address] [place] [address] Business (1) When:01/16/2024 14:00:00 [facility]07-13-2024 NoteDischarge Summary Admission and Discharge Information Admit [...] 20 mg Tab, 2 (more content not included)...[facility] HospitalComment on above:Result Comment: Electronically Signed By: Lalo Boyd DO\Date and Time Signed: 01/11/24 09:54 [id number] Telephone encounter Note* Telephone Encounter - Steve Gambino PA - 01/10/2024 12:36 PM EDT Insurance Name Rosita [id number] Patient's Insurance Case# [id number] Ordering Provider John [facility] [employer] 47624 (CPT ) - REMOVAL DEEP IMPLANT 87924 (CPT ) - SHOULDER SURG PROC UNLISTED The insurance still has this surgical request under CPT code 50128 for revision total shoulder. Didnot get any updated information about the changes CPT code to the codes above. Peer to peer put on hold currently until we can figure out submitting proper CPT coding. [facility] Work Phone: [phone] 230-962807-12-2024 Miscellaneous Notes* Telephone Encounter - Steve Gambino PA - 01/10/2024 12:36 PM EDT Insurance Name Rosita [id number] Patient's Insurance Case# [id number] Ordering Provider John [facility] [employer] 11623 (CPT ) - REMOVAL DEEP IMPLANT 28312 (CPT ) - SHOULDER SURG PROC UNLISTED The insurance still has this surgical request under CPT code 82645 for revision total shoulder. Didnot get any updated information about the changes CPT code to the codes above. Peer to peer put on hold currently until we can figure out submitting proper CPT coding. documented in [facility] NotePeripheral blood smear evaluation:[facility]edo HospitalComment on above:Order Comment: Order added by Discern ExpertPerformed By: #### [id number] #### [facility] [address] [place], [place] [phone] NoteProgress Note-Physician Subjective Day #2 IV Ciprofloxacin [...] Lymph Auto: 2 % Low (01/10/24 05:45:00) Pick[place] Auto: 0.9 % Low (01/10/24 05:45:00) Eos Auto: 0 % (01/10/24 05:45:00) Basophil Auto: 0 % (01/10/24 05:45:00) Neutro Absolute: 16 E9/L High (01/10/24 05:45:00) Lymph Absolute: 0.3 E9/L Low (01/10/24 05:45:00) [place] Absolute: 0.1 E9/L Low (01/10/24 05:45:00) Eos [...] secondary to colitis Will saline lock Ordered: [facility] Hospital Care/Day Moderate 35 Minutes [id number] 2. Nausea and vomiting (R11.2: Nausea with vomiting, unspecified) Resolved Saline lock fluids Antiemetics as needed Ordered: [facility] Hospital Care/Day Moderate 35 Minutes 31465 3. Lactic acidosis (E87.20: Acidosis, unspecified) Resolved Ordered: [facility] Hospital Care/Day Moderate 35 Minutes 16767 4. Leukocytosis (D72.829: Elevated white blood cell count, unspecified) Still with a leukocytosis with a white count of 16.5 with 9197.1% neutrophilic shift Secondary to colitis Day 2 IV ciprofloxacin and metronidazole Ordered: [facility] Hospital Care/Day Moderate 35 Minutes [id number] Orders: ciprofloxacin + Dextrose 5% in Water intravenous solution 200 mL, 400 mg = 200 mL, Soln-IV, IV Piggyback, q12hr, Routine, Start date 01/09/24 12:00:00 EDT, 200 mL/hr, Infuse over 60 minute(s) furosemide (more content not included)...[facility] HospitalComment on above:Result Comment: Electronically Signed By: Lalo Boyd DO\Date and Time Signed: 01/10/24 09:57 [id number] NoteProgress Note-Physician Subjective Patient seen and examined [...] Lymph Auto: 4.6 % Low (01/09/24 06:00:00) Pickens Auto: 3.2 % Low (01/09/24 06:00:00) Eos Auto: 0.2 % (01/09/24 06:00:00) Basophil Auto: 0.2 % (01/09/24 06:00:00) Neutro Absolute: 16 E9/L High (01/09/24 06:00:00) Lymph Absolute: 0.8 E9/L Low (01/09/24 06:00:00) [place] Absolute: 0.6 E9/L (01/09/24 06:00:00) Eos Absolute: [...] Ordered: Initial Hospital Care/Day Moderate 55 Minutes 25554 2. Nausea and vomiting (R11.2: Nausea with vomiting, unspecified) Fluid hydration Clear liquids Antiemetics as needed Ordered: Initial Hospital Care/Day Moderate 55 Minutes 11229 3. Lactic acidosis (E87.20: Acidosis, unspecified) Lactic acid levels trended down to normal Ordered: Initial Hospital Care/Day Moderate 55 Minutes 75775 4. Leukocytosis (D72.829: Elevated white blood cell count, unspecified) May be secondary to the nausea/vomiting and diarrhea plus she was on steroids White count down to 17.4 with 91.8% neutrophilic shift Ordered: Initial Hospital Care/Day Moderate 55 Minutes [id number] Orders: acetaminophen, 650 mg = 2 tab(s), Tab, Oral, q6hr PRN Pain, Routine, Start date 01/08/24 15:12:00 EDT, 01/08/24 15:12:00 EDT Al hydroxide/Mg hydroxide/simethicone, 30 mL, Susp-Oral, Oral, q6hr PRN Indigestion, Routine, Startdate 01/08/24 15:12:00 EDT albuterol-ipratropium, 3 mL, Soln-In (more content not included)...[facility] HospitalComment on above:Result Comment: Electronically Signed By: Lalo Boyd DO\Date and Time Signed: 01/09/24 11:06 [id number] Note History and Physical Basic Information Admit [...] (01/08/24 08:44:00) MPV: 7 (more content not included)...[facility] HospitalComment on above:Result Comment: Electronically Signed By: Lalo Boyd DO.br\Date and Time Signed: 01/08/24 16:37 [id number] NotePath ReviewPeripheral blood smear evaluation: Marked neutrophilic leukocytosis consistent with infection. Red blood cell and Platelet: Unremarkable. CPT: 10694 Naman Caicedo MD 01/10/2024 11:56:19 EDT *NA* (01/08/24 8:44 AM)[facility] 07-09-2024 Evaluation + Plan noteExtracted [...] and evaluated the patient with the physician dental assistant instructor. His history, physical exam, assessment and plan [...] -Echo and stress testing in 2021 negative -[facility] [place] - > check echo 6. Hypertensive urgency (I16.0: Hypertensive urgency) Present on admit with improved BP now -BP has stabilized 7. History of pulmonary embolism (Z86.711: Personal history of pulmonary embolism) History of PE, no intermediate AC -Chest CTA in ER negative 8. [...] -Echo and stress testing in 2021 negative -[facility] Cardiology has been consulted 6. Hypertensive urgency (I16.0: Hypertensive urgency) Present on admit with improved BP now -Follow BP trends with diuresis 7. History of pulmonary embolism (Z86.711: Personal history of pulmonary embolism) History of PE, no terminal operations supervisor AC -Chest CTA in ER negative 8. [...] with pulmonology. 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 Del Rio and was last seen [...] recently established with Dr. Hernandez as an timber poisoner who is warming some test for her) [...] she is seen by both pulmonology and pet nutrition specialist. In the event this represents acute [...] Dr. Aishwarya Fry is part of the [facility]. Has had a video conference with her 1 month ago. 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 Patient has been directed by her certified breastfeeding educator to hold Rinvoq on antibiotics therefore she [...] Tests Laboratory* CBC w/ Auto Diff 05/10/23 [facility]07-09-2024 Hospital Discharge instructions Patient Education 01/07/2024 11:41:28 [...] and fumes from perfume, candles, and household refrigeration engine operator. Other triggers, such as: ?Certain medicines. This [...] improve your quality of life. Medicines Take hzii-ace-yakgbbz and prescription medicines only as told by [...] Centers for Disease Control and Prevention: www.cdc.gov [place] Lung Association: www.lung.org National Heart, Lung, and Blood [place]: www.nhlbi.nih.gov World Health Organization: www.who.int Get help [...] provider. Document Revised: 12/13/2021 Document Reviewed: 12/13/2021 [employer] Patient Education 2022 [employer]. Follow Up Care 01/04/2024 15:55:45 With:Berry Canales FAM, MED Address: When:3 to 5 days Comments:Call for followup appointment With:Maximino HDZ, [employer] Address: When:2 to 4 weeks Comments:Call for followup appointment With:LELO DEL RIO DO Address: When:1 week Comments:Call for followup appointment [facility]07-09-2024 NoteProgress Note-Physician Basic Information Patient with history [...] Lymph Auto: 5.1 % Low (01/06/24 05:50:00) Pick[place] Auto: 2.7 % Low (01/06/24 05:50:00) Eos Auto: 0 % (01/06/24 05:50:00) Basophil Auto: 0.1 % (01/06/24 05:50:00) Neutro Absolute: 15.3 E9/L High (01/06/24 05:50:00) Lymph Absolute: 0.8 E9/L Low (01/06/24 05:50:00) [place] Absolute: 0.4 E9/L (01/06/24 05:50:00) Eos Absolute: [...] mg/dL High (01/06/24 20:27:00) POC Device SN: [id number] (01/06/24 20:27:00) POC User ID: [id number] (01/06/24 20:27:00) POC Username: PITA THURSTON (01/06/24 [...] arthritis, unspecified 11. Hy (more content not included)...[facility] HospitalComment on above:Result Comment: Electronically Signed By: Maximino HDZ, [employer]\.br\Date and Time Signed: 01/07/24 00:04 [id number] NoteConsultation Note Chief Complaint SOB, worsening cough [...] kg/sq m Allergic rhin (more content not included)...[facility] HospitalComment on above:Result Comment: Electronically Signed By: Sarah HDZ, Gurpreet Muniz\.dusty\Date and Time Signed: 01/06/24 14:05 [id number] NoteEchocardiology Procedure Exam Date/Time Accession # Ordering Echo Transthoracic 01/06/2024 11:19 EDT [id number] Zoe Stanton CNP CPT code 72102 [id number] Reason for Exam (Echo Transthoracic Complete) Shortness of breath (SOB) Report [facility] [address] [place] [address] Adult Echocardiogram Report Name: CAROLINA GUTIERREZ Study Date: 01/06/2024 09:52 AM BP: 143/88 mmHg Patient Location: [address] [place] [address] HR: 114 : 1960 Gender: Female Height: 58.5 in Age: 63 yrs Ethnicity: T Weight: 198 lb Reason For Study: Shortness of breath (SOB) BSA: 1.8 m2 History: DM, Asthma, Syncope, Pulmonary embolism, Rheumatoid arthritis Ordering Physician: Serge Stanton Performed By: Azra Vilchis, [facility] Interpretation Summary Ejection Fraction = 60-65%. [...] V1 VTI: 16.3 cm Med Peak E' Juancalros: 6.2 cm/sec E/E' Med: 9.5 TR max juancarlos: 265.0 cm/sec RAP systole: 3.0 mmHg AV VR: 0.97 TR max P.1 mmHg RVSP(TR): 31.1 mmHg FINAL REPORT Dictated: 01/06/2024 9:52 am Kodak Stanton MD Signed (Electronic Signature): 01/06/2024 12:07 pm Signed by: Kodak Stanton MD Transcribed by: [facility] Technologist: [facility] Note Progress Note-Physician Basic Information 63-year-old female [...] -Echo and stress testing in 2021 negative [place] [place] - > check echo 6. Hypertensive urgency (I16.0: Hypertensive urgency) Present on admit with improved BP now -BP has stabilized 7. History of pulmonary embolism (Z86.711: Personal history of pulmonary embolism) History of PE, no terminal operations supervisor AC -Chest CTA in ER negative 8. [...] date 01/05/24 9:00:00 EDT, 01/05/24 8:27:[address] [facility] Prescription, Spiriva Respimat 1.25 mcg/inh inhalation aerosol, [...] today, no rales Car (more content not included)...[facility] HospitalComment on above: Result Comment: Electronically Signed By: Serge Stanton CNP\.br\Date and Time Signed: 01/06/24 09:56 EDT\.br\Electronically Co-Signed By: Lalo Boyd DO\.br\Date and Time Co-Signed: 01/06/24 10:49 [id number] Note Microbiology PROCEDURE: Blood Culture Charcoal [R1] [...] Locations R1: This test was performed at: [facility], [address] [place] [address], [id number] , [place], VzaighToledo HospitalComment on above:Performed By: #### [id number] #### [facility] [address] [place] [address] [id number] NoteConsultation Note Chief Complaint SOB, worsening cough [...] multiple sites wit (more content not included)... [facility] HospitalComment on above:Result Comment: Electronically Signed By: Maximino HDZ, [employer]\.br\Date and Time Signed: 01/05/24 16:29 [id number] NoteConsultation Note Chief Complaint SOB, worsening cough [...] multiple sites wit (more content not included)... [facility] HospitalComment on above:Result Comment: Electronically Signed By: Maximino HDZ, Kodak Gan\.br\Date and Time Signed: 01/05/24 16:29 [id number] NoteProgress Note-Physician Basic Information 63-year-old female with [...] -Echo and stress testing in 2021 negative [place] [place]iology has been consulted 6. Hypertensive urgency (I16.0: Hypertensive urgency) Present on admit with improved BP now -Follow BP trends with diuresis 7. History of pulmonary embolism (Z86.711: Personal history of pulmonary embolism) History of PE, no intermediate AC -Chest CTA in ER negative 8. [...] ca removalthat is moist (more content not included)...[facility] HospitalComment on above:Result Comment: Electronically Signed By: Serge Stanton CNP\.br\Date and Time Signed: 01/05/24 09:17 EDT\.br\Electronically Co-Signed By: Alessandro CASTAÑEDA MD\.br\Date and Time Co- Signed: 01/05/24 09:18 [id number] NoteProgress Note-Physician Note I was on the [...] systolic and diastolic function. Will defer to cardiologyToledo HospitalComment on above:Result Comment: Electronically Signed By: Andrea DAMON DO\Date and Time Signed: 01/05/24 05:20 [id number] NoteHistory and Physical Basic Information Admit Date/Time:01/04/2024 19:31 Chief Complaint SOB, worsening cough History of Present Illness Patient is a morbidly obese 63-year-old white female with a past medical history per review of her border patrol officer Dr. Esparza's note from 04 December 2023 [...] was seen at the urgent care of [facility] was diagnosed with bronchitis and was given a prescription for Zithromax on 24 December. She was also placed on a burst of prednisone that she states milligrams as she had no improvement she was seen at [facility] urgent care on 26 December and given [...] Musculoskeletal: no back pain, (more content not included)...[facility] HospitalComment on above:Result Comment: Electronically Signed By: Andrea DAMON DO.dusty\Date and Time Signed: 01/05/24 01:19 [id number] Telephone encounter Note* Telephone Encounter - Lanny Pérez RN - 01/01/2024 9:31 AM EDT Call placed to pt per office request. Pt noted to have pneumonia and is not cleared through PCP. Provided nursing support and advised pt we should reschedule shoulder surgery. Rescheduled for 01/28/24-will need clearance through PCP prior to surgery. Direct office number provided for additional ques tions or concerns. [facility]07-03-2024 Miscellaneous Notes* Telephone Encounter - Lanny Pérez [...] ques tions or concerns. documented in this encounterK[facility]24 Hospital Discharge instructions Patient Education 12/29/2023 22:31:11 Community-Acquired Pneumonia, Adult, Wwkf-qk-Jsql Community-Acquired Pneumonia, Adult Pneumonia is an infection [...] Follow these instructions at home: Medicines Take ltex-tql-uailgnu and prescription medicines only as told by [...] cannot use soap and water, use hand clerk of works. Contact a doctor if: You have a [...] Document Reviewed: 08/15/2022 Elsevier Patient Education 2022 [employer]. 12/29/2023 22:31:11 Asthma, Adult, Xbzz-cl-Qcld Asthma, Adult Asthma is a condition that [...] (dander). Cockroaches. Pollen. Air pollution (like household refrigeration engine operator, wood smoke, smog, or chemical odors). What [...] of polyester or cotton. General instructions Take ierl-ptz-yiergyv and prescription medicines only as told by [...] pollute the air. These may include household refrigeration engine operator, wood smoke, smog, or chemical odors. This information is not intended to replace advice given to you by your health care provider. Make sure you discuss any questions you have with your health care provider. Document Revised: 03/26/2022 Document Reviewed: 03/26/2022 [employer] Patient Education 2022 [employer]. Follow Up Care 12/29/2023 20:27:40 With:Silvestre Benavides Address:Unknown When:01/01/2024 Comments:Call Dr for diagnosis based follow up [facility]06-30-2024 NoteED Patient Education Note Infectious Disease Community-Acquired [...] these instructions at home: Medicines ? Take fzsg-kzf-iplpodr and prescription medicines only as told by [...] cannot use soap and water, use hand clerk of works. Contact a doctor if: ? You have [...] cause this infection. ? (more content not included)...[facility] Evaluation + Plan note Diagnostic Tests Pending * Blood Culture Charcoal 12/29/23 * Blood Culture Charcoal 12/29/23 Future Scheduled Tests Laboratory* CBC w/ Auto Diff 05/10/23 [facility]06-28-2024 Hospital Discharge instructions Patient Education 12/27/2023 15:47:29 [...] numbers. This can be done either in [place] ([place] or metric measurements. Note that charts and online BMI calculators are available to help you find your BMI quickly and easily without having to do these calculations yourself. To calculate your BMI in [place] ([place] measurements: 1.Measure your weight in pounds [...] Centers for Disease Control and Prevention: www.cdc.gov [place] Heart Association: www.heart.org National Heart, Lung, and Blood [place]: www.nhlbi.nih.gov Summary Body mass index (BMI) is a number that is calculated from a person's weight and height. BMI may help estimate how much of a person's weight is composed of fat. BMI can help identify thosewho may be at higher risk for certain medical problems. BMI can be measured using [place] measurements or metric measurements. BMI charts are used to identify whether you are underweight, normal weight, overweight, or obese. This information is not intended to replace advice given to you by your health care provider. Make sure you discuss any questions you have with your health care provider. Document Revised: 03/09/2020 Document Reviewed: 01/15/2020 [employer] Patient Education 2022 [employer]. 12/27/2023 15:47:27 Acute Bronchitis, Adult Acute Bronchitis, [...] condition. Follow these instructions at home: Take prky-pyz-cyotmvk and prescription medicines only as told by [...] and water are not available, use hand clerk of works. Avoid contact with people who have cold [...] it is easier to cough up. Take qyaa-smr-fynjtjk and prescription medicines only as told by [...] provider. Document Revised: 09/27/2022 Document Reviewed: 10/18/2021 [employer] Patient Education 2022 [employer]. Follow Up Care 12/27/2023 14:03:46 With:Makayla HDZ, DWAIN Guzman, MED Address:Unknown When: Unknown [facility] 06-28-2024 NotePatient Education Nutrition [...] numbers. This can be done either in [place] (U.S[place] or metric measurements. Note that charts and online BMI calculators are available to help you find your BMI quickly and easily without having to do these calculations yourself. To calculate your BMI in [place] ([place] measurements: 1. Measure your weight in [...] for Disease Control and Prevention: www.cdc.gov ? [place] Heart Association: www.heart.org ? National Heart, Lung, and Blood [place]: www.nhlbi.nih.gov Summary ? Body mass index (BMI) is a number that is calculated from a person's weight and height. ? BMI may help estimate how much of a person's weight is composed of fat. BMI can help identify those who may be at higher risk for certain medical problems. ? BMI can be measured using [place] measurements or metric measurements. ? BMI charts are used to identify whether you are underweight, normal weight, overweight, or obese. This information is not intended to replace advice given to you by your health care provider. Make sure you discuss any questions you have with your health care provider. Document Revised: 03/09/2020 Document Reviewed: 01/15/2020 [employer] Patient Education ? 2022 [employer]. Pulmonary Medicine Acute Bronchitis, Adult Acute bronchitis [...] most common cause (more content not included)... [facility]06-27-2024 Telephone encounter Note* Telephone Encounter - [...] her surgery? Thank you, Louis Cates APRN.CNP [facility]06-27-2024 Miscellaneous Notes* Telephone Encounter - Louis Cates [...] you, Louis Cates APRN.CNP documented in this encounterK[facility]06-26-2024 Telephone encounter Note * Telephone Encounter - Azra Regan - 12/25/2023 3:35 PM EDT Carolina is calling Louis Cates APRN.CNP today with concern regarding Medication Problem. Patientcalled and states she saw her results and received a phone call that she should take the medicationthat was prescribed. She states that the pharmacy does not have any medications. Pharmacy is [facility]. Please advise if anything needs to be sent in for ains abnormal data STAPHYLOCOCCUS AUREUS & MRSA SCREEN, PCR, NASAL that was positive. Patient has been identified by name and birthdate. Person calling: self Call patient at: at home [phone] (home) [phone] (work) [phone] (cell) Was an appointment scheduled: No Closing statement: Results or non-symptom based questions: Thank you for calling [facility], your call will be returned within the next business day. Azra Regan [facility]06-26-2024 Miscellaneous Notes* Telephone Encounter - Azra Regan - 12/25/2023 3:35 PM EDT Carolina is calling Louis Cates APRN.CNP today with concern regarding Medication Problem. Patientcalled and states she saw her results and received a phone call that she should take the medicationthat was prescribed. She states that the pharmacy does not have any medications. Pharmacy is [facility]. Please advise if anything needs to be sent in for ains abnormal data STAPHYLOCOCCUS AUREUS & MRSA SCREEN, PCR, NASAL that was positive. Patient has been identified by name and birthdate. Person calling: self Call patient at: at home [phone] (home) [phone] (work) [phone] (cell) Was an appointment scheduled: No Closing statement: Results or non-symptom based questions: Thank you for calling [facility], your call will be returned within the next business day. Azra Regan documented in this encounterKettering [facility]06-21-2024 Instructions* Patient Instructions* Louis Cates APRN.QUALITY ASSURANCE SUPERVISOR - 12/20/2023 9:46 AM EDT PATIENT PREOPERATIVE INSTRUCTIONS John Holly has scheduled you for your procedure at this surgery center: [facility] Scheduling Office: [phone] -69[address] [place] [address]. Please read below carefully for your personalized [...] call the Saturday before. Your surgeon s shipbuilding draftsperson will tell you what time to call the office. - If you have not reached the departmental shipbuilding draftsperson by 5 P.M., call [phone] after 5 P.M. the day before your surgery. Please be aware that emergency situations arise, which may delay or change your surgical time. If this happens, we will notify you as soon as possible and regret any inconvenience. If you already have an Advance Directive, please fax a copy to [phone] or email to for it to be [...] your chart that day. documented in this encounterKettering Health [facility]06-21-2024 History and physical note * Louis Cates APRN.CNP - 12/20/2023 9:20 AM EDT HISTORY AND PHYSICAL EXAMINATION SERVICE DATE: 12/20/2023 SERVICE TIME: 9:59 AM PRIMARY CARE PHYSICIAN: Aline Guerrreo MD REASON FOR VISIT: Carolina Gutierrez is [...] to auscultation, follows with pulmonology annually in [place] GERD (gastroesophageal reflux disease) Assessment: Managed and [...] large neck Non-male patient STOP-Bang Score: 2 [id number] Score: Age: <65 Sex: female CHF history: No Hypertension history: No Stroke/TIA/thromboembolism history: No Vascular disease history: No Diabetes history: Yes [id number] Score: 2 ARISCAT Score: Age: 51-80 Preoperative [...] and consent discussed: yes. Patient / Responsible Alliance Party agrees to proceed: yes Patient / Surrogate [...] shoulder [Z96.612] Failed orthopedic implant, initial encounter ([facility]) [T84.198W] HPI: Patient is a 63 year old FEMALE presenting for pre-op evaluation for the above procedure. Patient denies any chest pain, shortness of breath, palpitations, fever/chills, nausea/vomiting, fatigue, or diarrhea. no pain at today's visit. stable and compliant with current medications REVIEW OF SYSTEMS: PAIN ASSESSMENT: General: No weight loss, malaise or fevers. Neuro: No history of TIA's, stroke, SECOND HELPER tumor, impaired sensorium, hemiplegia, paraplegia or quadraplegia. [...] or incontinence,, stones or chronic kidney disease EXTRUDER TENDER: Negative for abnormal vaginal bleeding, abnormal vaginal discharge. : Denies, No LMP recorded. Patient has had a hysterectomy. Endocrine: Hypothyroidism, diabetes Hematology: h/o PE, h/o anemia Oncology: right breast BCC (cryo) Psych: No history of psychiatric symptoms or problems. Musculoskeletal: RA, 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] Failed orthopedic implant, initial encounter ([facility]) [T84.098A] , Body mass index is 44.53 kg/m [...] Arthritis of Multiple Sites Without Rheumatoid Factor ([facility]) Postmenopausal Osteoporosis of Multiple Sites Long-Term Use of High-Risk Medication Cyclic Citrullinated Peptide (Ccp) Antibody Positive Rheumatoid Factor Positive Encounter for Long-Term (Current) Use of Nsaids Vitamin D Deficiency Personal History of Other Medical Treatment Bilateral Chronic Knee Pain Nausea Failed Orthopedic Implant ([facility]) S/P Reverse Total Shoulder Arthroplasty, Left Loose Orthopedic Implant ([facility]) Gerd (Gastroesophageal Reflux Disease) History of Pulmonary Embolism Hypertension Diabetes ([facility]) Anemia Asthma Without Status Asthmaticus Covid Immunization Dates Overdue - Covid-19 Vaccine ( season) Overdue since 03/01/2023 06/09/2021 Imm Admin: COVID-19 original vaccine, age 12+ yr, monovalent (PFIZER- [employer] - PURPLE TOP) 09/23/2020 Imm Admin: COVID-19 original vaccine, age 12+ yr, monovalent (Copiny- BIONTECH - PURPLE TOP) 09/02/2020 Imm Admin: COVID-19 original vaccine, age 12+ yr, monovalent ([employer] - PURPLE TOP) PAST MEDICAL HISTORY Diagnosis [...] Cancer Mother Cerebral Embolism Father CVA, aneurysm, CA, other (normal [Other]) Sister None Sister None [...] fluticasone (FLONASE) 50 mcg/actuation nasal spray 1 [place] daily at bedtime. in each nostril. Taking [...] 382 QTC Calculation (Bazett) 424 Calculated P Gresham 46 Calculated R Gresham 2 Calculated T Gresham 102 Impression NORMAL SINUS RHYTHM POSSIBLE LEFT [...] Carolina Gutierrez DATE: 12/20/2023 TIME: 9:59 AM [facility]06-21-2024 History and physical note* Louis Cates APRN.CNP [...] to auscultation, follows with pulmonology annually in [place] GERD (gastroesophageal reflux disease) Assessment: Managed and [...] large neck Non-male patient STOP-Bang Score: 2 [id number] Score: Age: <65 Sex: female CHF history: No Hypertension history: No Stroke/TIA/thromboembolism history: No Vascular disease history: No Diabetes history: Yes [id number] Score: 2 ARISCAT Score: Age: 51-80 Preoperative [...] and consent discussed: yes. Patient / Responsible Alliance Party agrees to proceed: yes Patient / Surrogate [...] shoulder [Z96.612] Failed orthopedic implant, initial encounter ([facility]) [T87.220H] HPI: Patient is a 63 year old FEMALE presenting for pre-op evaluation for the above procedure. Patient denies any chest pain, shortness of breath, palpitations, fever/chills, nausea/vomiting, fatigue, or diarrhea. no pain at today's visit. stable and compliant with current medications REVIEW OF SYSTEMS: PAIN ASSESSMENT: General: No weight loss, malaise or fevers. Neuro: No history of TIA's, stroke, SECOND HELPER tumor, impaired sensorium, hemiplegia, paraplegia or quadraplegia. [...] or incontinence,, stones or chronic kidney disease EXTRUDER TENDER: Negative for abnormal vaginal bleeding, abnormal vaginal discharge. : Denies, No LMP recorded. Patient has had a hysterectomy. Endocrine: Hypothyroidism, diabetes Hematology: h/o PE, h/o anemia Oncology: right breast BCC (cryo) Psych: No history of psychiatric symptoms or problems. 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 in each nostril. Taking [...] 382 QTC Calculation (Bazett) 424 Calculated P Gresham 46 Calculated R Gresham 2 Calculated T Gresham 102 Impression NORMAL SINUS RHYTHM POSSIBLE LEFT [...] 12/20/2023 TIME: 9:59 AM documented in this encounterK[facility]05-[facility]-2024 Telephone encounter Note * Telephone Encounter - Saadia Hall MA - 11/21/2023 1:39 PM EDT Pt was notified via . [facility]05-23-2024 Miscellaneous Notes* Telephone Encounter - Saadia [place] [...] 11/20/2023 2:41 PM EDT Received BMD from [facility]. Results placed on your desk for review. documented in this encounterKet[facility]05-23-2024 Telephone encounter Note * Telephone Encounter - [...] instructions at last office visit. Thank you. [facility] 11/15/23 osteopenia (was osteoporosis) L1-L4 1.238g/cm2, tscore [...] DDimer 4180;negative synovial fluid crystals, quantiferon tb [facility]05-22-2024 Telephone encounter Note* Telephone Encounter - Mary Layne LPN - 11/20/2023 2:41 PM EDT Received BMD from [facility]. Results placed on your desk for review. [facility]05-10-2024 Telephone encounter Note* Telephone Encounter - Lanny [...] for support or additional questions or concerns. [facility]05-10-2024 Miscellaneous Notes* Telephone Encounter - Lanny Pérez [...] additional questions or concerns. documented in this encounterKettering Health [facility]05-06-2024 History of Present illness Narrative* John Holly MD - 11/04/2023 9:35 AM EDT [facility] NOTE Department of Orthopaedics John Holly MD [facility] NAME: Carolina Gutierrez CLINIC NO.: [id number] DATE: 11/04/2023 Interval Hx:Carolina Gutierrez is back for evaluation of her L shoulder. Patient has a history of L rTSA performed on 05/20/[address] Dunbar at [facility] orthopedics with subsequent catastrophic failure of glenosphere. Our last visit was on 10/14/2023 and we discussed revision L rTSA. Underwent infectious workup and CT L shoulder. Synovial fluid analysis resulted with 1177 WBCs, 083673 RBCs, 77% PMNs, no crystals. NGTD on [...] Shoulder and Elbow Surgeon Orthopaedic Surgery Department [place], [place] [address] Tell: [phone] Appt:[phone] documented in this encounterKettering [facility]05-01-2024 Telephone encounter Note * Telephone Encounter - Lanny Pérez RN - 10/30/2023 8:50 AM EDT Call placed to pt due to incidental findings on shoulder CT. No answer, called twice. Left messagedadvising pt to follow up with PCP as pt PCP is out of network. Direct office number provided for additional questions or concerns. [facility]05-01-2024 Miscellaneous Notes* Telephone Encounter - Lanny Pérez RN - 10/30/2023 8:50 AM EDT Call placed to pt due to incidental findings on shoulder CT. No answer, called twice. Left messagedadvising pt to follow up with PCP as pt PCP is out of network. Direct office number provided for additional questions or concerns. documented in this encounterKet[facility]04-27-2024 NoteHNO ID: [id number] Author: RUBY MELGAR RT(R) Service: Radiology Author [...] PATIENT PRESENTS WITH AN IMPLANTABLE OR ATTACHED SAMPLER RADIOACTIVE WASTE: No RADIOLOGY DEPARTMENT: CT; Exam(s) Completed: Upper extremity PERIPHERAL IV DATA: Not applicable SIGNED BY: RT Elias(R) October 26, 2023 8:42 [facility] [id number] Telephone encounter Note* Telephone Encounter - Geneva Cabello LPN - 10/21/2023 10:07 AM EDT Called and spoke to patient. She is aware of message below from . Patient verbalized understanding. Patient requested warren nuñez to send over the results of her bone density for 04/22. [facility]04-22-2024 Miscellaneous Notes* Telephone Encounter - Geneva Cabello [...] obtain results of bone mineral density from [facility] (~03/2023), only received 03/2021 results Happy to [...] fluid crystals, quantiferon tb documented in this encounterKettering [facility]04-19-2024 Telephone encounter Note * Telephone Encounter - Jessenia Allison RN - 10/18/2023 10:24 AM EDT Left message on machine for pt to call office Please await call back ' Stated message sent to my chart [facility]04-18-2024 Telephone encounter Note* Telephone Encounter - Stevo [...] obtain results of bone mineral density from [facility] (~03/2023), only received 03/2021 results Happy to further review and discuss at follow up visit. Continue rest of treatment plan per instructions at last office visit. Thank you. 10/14/23 saw ortho drained left shoulder (pain in Left shoulder x 5months, since replacement) may proceed with shoulder revision if no infection. 10/14/23 high esr 45, crp 3.4, DDimer 4180;negative synovial fluid crystals, quantiferon tb [facility]04-15-2024 History of Present illness Narrative* John Holly MD - 10/14/2023 8:21 AM EDTAssociated Order(s): Large Joint Arthro/Inj: L shoulder joint Post-Procedure Diagnose(s): Status post reverse total replacement of left shoulder John Holly M.D. M.M.Sc. [facility] at [place] [address] Office: [phone] Consult requested for an opinion regarding the evaluation and treatment of the above patient. My final impression and recommendations will be communicated back to the requesting physician by way of the shared medical record or letter via US mail. Patient info: Carolina Gutierrez ([id number]) Service date: 10/14/2023 Referred by: No referring provider defined for this encounter. PCP: MD Cesar Chief Complaint: Left shoulder pain. HPI:Carolina Gutierrez is a 62 year old Right hand dominant female with hx RA who presents with 5 month history of Left shoulder pain. Patient has a history of L rTSA performed on 05/20/[address] Dunbar at [facility] orthopedics. History of prior injury no. Patient [...] Cancer Mother Cerebral Embolism Father CVA, aneurysm, CA, other (normal [Other]) Sister None Sister None [...] fluticasone (FLONASE) 50 mcg/actuation nasal spray 1 [place] daily at bedtime. in each nostril. Cholecalciferol, [...] no height and/or weight reading in the isvt311 days, so the below BMI readings may [...] shoulder joint Informed Consent Consent Obtained: Verbal [place] Protocol A moment to CARE was completed. [...] Shoulder and Elbow Surgeon Orthopaedic Surgery Department [place], [place] [address] Tell: [phone] Appt:[phone] 10/14/2023 8:21 AM CC: documented in this encounterKet[facility]04-15-2024 History of Present illness Narrative* Rosana Lancaster [...] PATIENT PRESENTS WITH AN IMPLANTABLE OR ATTACHED SAMPLER RADIOACTIVE WASTE: No RADIOLOGY DEPARTMENT: General X-ray: Exam(s) Completed: Upper Extremity X- Ray(s): Shoulder, AP / TRUE AP / AXILLARY left PERIPHERAL IV DATA: Not applicable SIGNED BY: Rudy Quesada October 14, 2023 8:02 AM documented in this encounterKettering [facility]04-02-2024 Miscellaneous Notes* Telephone Encounter - Stevo Neff MD - 10/01/2023 7:55 AM EDT Please call and schedule Follow up visit for rheumatoid arthritis/osteoporosis in 6months with DELINQUENT TAX COLLECTION ASSISTANT or me Patient has orders for nonfasting labs this month/will complete at [facility] Please obtain results of bone mineral density from [facility] (~03/2023), only received 03/2021 results Thank you. documented in this encounterKet[facility]04-02-2024 Instructions* Patient Instructions* Stevo Neff MD - [...] touching your toes, sit-ups, using row machine intermediate pain recommendations per primary care provider/pain clinic [...] your usual activities immediately. documented in this encounterKettering [facility]04-02-2024 History of Present illness Narrative* Stevo Neff [...] visit. Either the patient or their legal service representative has been informed of the risks [...] Dactylitis: no H/o precedent/frequent infection(s): as above Enthesopathy/[place]'s/heel/plantar tenderness: no Skin thickening, psoriasis, photosensitivity, purpura: [...] Urine or urethritis: no Renal/liver disease: no SECOND HELPER/PNS/sz/cva/cancer disease: no HEME-Cytopenias/LAD/Clots: +PE 07/2020 with 1st [...] PGM-rheumatoid arthritis, gout;father- 56y/o brain blood clot, CA;mother- cancer 66y/o;sisters-osteoarthritis;children-healthy; FAMILY HISTORY Problem Relation Age of Onset Breast Cancer No Family History no known family h/o breast or ovarian cancer Cancer Mother Cerebral Embolism Father CVA, aneurysm, CA, other (normal [Other]) Sister None Sister None Sister SOCIAL HISTORY: Job 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 cc Aline Guerrero MD [facility] AMBULATORY VISIT INTAKE QUESTIONNAIRE Question 10/01/2023 [...] Workers' Compensation? No Do you need an bag shop worker? No [facility] MYCHART ZOOM MESSAGE Question 10/01/2023 7:17 AM [...] body? Without ANY difficulty Bend down to excelsior picker clothing from the floor? Without ANY difficulty [...] No Swollen Glands: No documented in this encounterKettering Health [facility]02-06-2024 History of Present illness Narrative* [place] [...] FOR BACKPAIN ergocalciferol (Vitamin D2) 1.25 MG (14928 UT) capsule TAKE 1 CAP BY MOUTH [...] wheezing or SOB, 1 EA, Refill(s) 11, [facility]/pharmacy #[id number], 144.8, cm, 09/05/22 15:24:00 EST, Height/Length [...] @ 2:27 PM Additional Tests Keratometry K1 Gresham K2 Gresham Right 44.75 1 45 91 Left 45.5 [...] Normal Normal Refraction Manifest Refraction Sphere Cylinder Gresham Right +0.00 -0.50 137 Left -0.25 -0.25 [...] laser capsulotomy, they are to notify their marketing associate promptly if they have a significant change in symptoms, such as flashes of light (photopsia), an increase in floaters, loss of visual field or decrease in visual acuity. documented in this encounterOzarks Community HospitalJfpqygwnhw21-90-3882 Note [id number]11-21-[address] DUNBAR'S POST OPERATIVE [...] or concerns, please call the office at [phone] 7. Follow up as scheduledMemorial [id number] [facility] Clinical Discharge Summary PERSON INFORMATION Name CAROLINA GUTIERREZ Age 62 Years 1960 Sex FEMALE Language Macanese PCP Silvestre Benavides MD Marital Status Phone Med Service Observation Acct# Arrival 05/20/2023 06:11:47 Visit Reason SURGERY - LEFT REVERSE TOTAL SHOULDER Acuity LOS 000 29:07 Address: [address] [place] [address] [address] [facility] [address] Comment: PROVIDER INFORMATION VITALS INFORMATION Vital Sign [...] Follow up: With: Address: When: Rosa Dunbar [address] [place] [address], [address] [place] [address] Business (1) 05/28/2023 10:30 AM DIAGNOSIS Arthritis of left glenohumeral joint Comment: PHYS [facility]11-15-2023 Telephone encounter Note* Telephone Encounter - MEÑO Golden - 05/15/2023 10:22 AM EST Spoke with patient and answered questions she is taking OTC FE, and we received clearance [facility] Work Phone: [phone] Miscellaneous Notes* Telephone Encounter - MEÑO Golden [...] yet. If you could call her at [phone] * Telephone Encounter - MEÑO Golden - 04/03/2023 12:44 PM EDT Spoke w patient and scheduled appt * Telephone Encounter - Jeny Chu - 04/02/2023 8:38 AM EDT Carolina called and left vm said she was wondering if you are scheduling for May surgeries? You were going to let her know if 05/20/23 is good for her shoulder sx. Please call her at [phone] documented in this encounterOzarks Community [id number] Telephone encounter Note* Telephone Encounter - Jeny Chu - 05/15/2023 8:15 AM EST Pt called and left vm for you, stated she was suppose to get iron supplement pill, it was never called in and she never got it. She also stated she has not received PCP clearance yet. If you could call her at [phone] [facility] HospitalAnshfkqvwm87-26-6978 Evaluation + Plan note Future Scheduled Tests Laboratory* CBC w/ Auto Diff 05/10/23 * CBC w/ Auto Diff 11/21/22 * Comprehensive Metabolic Panel 11/21/22 * Ferritin 11/21/22 * Iron Level 11/21/22 * Iron Percent Saturation 11/21/22 [facility] 11-10-2023 Evaluation + Plan note Future Scheduled Tests Laboratory* CBC w/ Auto Diff 05/10/23 [facility] 10-24-2023 Miscellaneous Notes* Telephone [...] Department VIDEO SPEC EST 09/30/2023 7:00 AM [facility] CBC: None on file in the [...] diagnoses: Vitamin D deficiency documented in this encounterKet[facility]10-04-2023 Telephone encounter Note * Telephone Encounter - MEÑO Golden - 04/03/2023 12:44 PM EDT Spoke w patient and scheduled appt [facility] Community [id number] Telephone encounter Note* Telephone Encounter - Jeny Chu - 04/02/2023 8:38 AM EDT Carolina called and left vm said she was wondering if you are scheduling for May surgeries? You were going to let her know if 05/20/23 is good for her shoulder sx. Please call her at [phone] [facility] Community HospitalXjrecmwwdu77-95-1966 NoteHPI Staff This visit was conducted via two-way, real-time interactive video communications by Berry Canales from my office using [employer]. The patient was located at their home, located at [address] [place] [phone], with _ in attendance. A signed authorization for treatment has been obtained via our standard authorization packet or by verbal consent by the patient or their legal service representative. The patient's identity and location in [place] has been verified by our office staff. [...] day(s), # 21 cap(s), Refills(s) 0, Pharmacy: [facility]/pharmacy #[id number], 143.2, cm, 12/05/22 15:37:00 EDT, Height/Length Dosing, 85.3, kg, 12/05/22 15:37:00 EDT, Weight Dosing nirmatrelvir-ritonavir, See Instructions, Oral, BID, 30 tab(s), Refill(s) 0, 3 Tablets twice daily for 5 days, [facility]/pharmacy #[id number], 143.2, cm, 12/05/22 15:37:00 EDT, Height/Length Dosing, 85.3, kg, 12/05/22 15:37:00 EDT, Weight Dosing TELEHEALTH Office Visit Level 3 Est 94811 2. Cough (R05.9: Cough, unspecified) pt c/o severe cough. will order chest xray. pt encouraged to use nebulizer every 4 hours. pt is on day 3 of medrol dose pack. Ordered: benzonatate, 200 mg = 1 cap(s), Oral, TID, X 7 day(s), # 21 cap(s), Refills(s) 0, Pharmacy: [facility]/pharmacy #[id number], 143.2, cm, 12/05/22 15:37:00 EDT, Height/Length Dosing, 85.3, kg, 12/05/22 15:37:00 EDT, Weight Dosing nirmatrelvir-ritonavir, See Instructions, Oral, BID, 30 tab(s), Refill(s) 0, 3 Tablets twice daily for 5 days, [facility]/pharmacy #[id number], 143.2, cm, 12/05/22 15:37:00 EDT, Height/Length Dosing, 85.3, kg, 12/05/22 15:37:00 EDT, Weight Dosing TELEHEALTH Office Visit Level 3 Est 35636 3. Nasal congestion (R09.81: Nasal congestion) mucinex suggested Ordered: benzonatate, 200 mg = 1 cap(s), Oral, TID, X 7 day(s), # 21 cap(s), Refills(s) 0, Pharmacy: [facility]/pharmacy #[id number], 143.2, cm, 12/05/22 15:37:00 EDT, Height/Length Dosing, 85.3, kg, 12/05/22 15:37:00 EDT, Weight Dosing nirmatrelvir-ritonavir, See Instructions, Oral, BID, 30 tab(s), Refill(s) 0, 3 Tablets twice daily for 5 days, [facility]/pharmacy #[id number], 143.2, cm, 12/05/22 15:37:00 EDT, Height/Length Dosing, 85.3, kg, 12/05/22 15:37:00 EDT, Weight Dosing TELEHEALTH Office Visit Level 3 Est 17698 4. Shortness of breath (R06.02: Shortness of breath) pt feeling sob with wheezing. chest xray ordered, levofloxacin sent to pharmacy Ordered: benzonatate, 200 mg = 1 cap(s), Oral, TID, X 7 day(s), # 21 cap(s), Refills(s) 0, Pharmacy: [facility]/pharmacy #[id number], 143.2, cm, 12/05/22 15:37:00 EDT, Height/Length Dosing, 85.3, kg, 12/05/22 15:37:00 EDT, Weight Dosing nirmatrelvir-ritonavir, See Instructions, Oral, BID, 30 tab(s), Refill(s) 0, 3 Tablets twice daily for 5 days, [facility]/pharmacy #[id number], 143.2, cm, 12/05/22 15:37:00 EDT, Height/Length Dosing, 85.3, kg, 12/05/22 15:37:00 EDT, Weight Dosing TELEHEALTH Office Visit Level 3 Est 86769 5. Wheezing (R06.2: Wheezing) see above Ordered: benzonatate, 200 mg = 1 cap(s), Oral, TID, X 7 day(s) (more content not included)...[facility] HospitalComment on above:Result Comment: Electronically Signed By: Berry Canales.br\Date and Time Signed: 03/20/23 12:57 [id number] Miscellaneous Notes* Telephone Encounter - Mary Layne [...] form today. Can call prior auth at [phone]. Pharm is [phone]. documented in this encounterK[facility]23 History of Present illness Narrative* Jamia Rader [...] 02/20/2023 2:51 PM Patient: Carolina Gutierrez MR#: [id number] : 1960 Age: 62 y.o. Referring Physician: [...] keflex [cephalexin], and penicillins. * Medardo Vuong APRN-QUALITY ASSURANCE SUPERVISOR - 02/20/2023 2:40 PM EDT HPI: Patient [...] have reviewed the findings of the clinical field support representative and agree with their assessment. Ortho Nurse - Established Patient Intake Room#: 5 4m R TKA Pt stated she is doing good and denies any pain at this time.0/10 on the pain scale. Pt stated her only complaint is going up and down steps it is a little week. Date: 02/20/2023 2:51 PM Patient: Carolina Gutierrez MR#: [id number] : 1960 Age: 62 y.o. Referring Physician: Self, Self Insurance: Payor: ROSITA / Plan: [facility] P[facility] POS / Product Type: *No [...] keflex [cephalexin], and penicillins. documented in this encounterS[facility]06-[facility]23 Hospital Discharge instructions Patient Education 12/05/2022 15:55:32 [...] grapefruit, pineapple, and fawn. Vegetables Deep-fried vegetables. [place] Islander fries. Any vegetables prepared with added [...] provider. Document Revised: 12/26/2020 Document Reviewed: 12/26/2020 [employer] Patient Education 2022 [employer]. Follow Up Care 11/27/2022 15:55:14 With:Teodora Ott CNP Address: When:3 months [facility] 05-23-2023 NotePROCEDURE: US SINGLE [...] Electronically authenticated by: GEOVANNY DUNBAR Date: 2022-11-20 09:26[facility]04-21-2023 NotePROCEDURE: XR FOOT LT MIN 3 VIEWS [...] Electronically authenticated by: NHUNG DONG Date: 2022-10-19 10:44[facility]04-07-2023 Evaluation note* Encounter Date Diagnosis Assessment Notes [...] no improvement in 2 to 3 days. [facility] Other 04-03-2023 Evaluation + Plan note Future Scheduled Tests Laboratory* HgbA1c 10/01/22 * TSH With T4fr Reflex 10/01/22 * CBC w/ Auto Diff 05/10/23 * CBC w/ Auto Diff 10/01/22 * CBC w/ Auto Diff 11/21/22 * Comprehensive Metabolic Panel 10/01/22 * Comprehensive Metabolic Panel 11/21/22 * Ferritin 11/21/22 * Iron Level 11/21/22 * Iron Percent Saturation 11/21/22 * Lipid Panel 10/01/22 [facility]03-10-2023 Evaluation + Plan noteExtracted from: Title:ED Note Author:Shalom Toledo DO Date :09/07/22 Asthma exacerbation (J45.901 : Unspecified asthma with (acute) exacerbation) Sinusitis (J32.9: Chronic sinusitis, unspecified) Orders: albuterol-ipratropium, 9 mL, Soln-Inh, Inhalation, Once, Stop date 09/07/22 0:09:00 EST, STAT, Start date 09/07/22 0:09:00 EST brompheniramine/dextromethorphan/PSE, 5 mL, Oral, QID for cold symptoms, 200 mL, Refill(s) 0, [facility]/pharmacy #[id number], 150, cm, 09/06/22 23:56:00 EST, Height/Length Dosing, 87.3, kg, 09/06/22 23:56:00 EST, Weight Dosing brompheniramine/dextromethorphan/PSE, 5 mL, Syrup, Oral, Once, Stop date 09/07/22 1:38:00 EST, STAT, Start date 09/07/22 1:38:00 EST doxycycline, 100 mg = 1 tab(s), Oral, q12hr, X 7 day(s), # 14 tab(s), Refills(s) 0, Pharmacy: [facility]/pharmacy #[id number], 150, cm, 09/06/22 23:56:00 EST, Height/Length Dosing, 87.3, kg, 09/06/22 23:56:00 EST, Weight Dosing methylPREDNISolone, 125 mg = 2 mL, Injection, IV Push, Once, Stop date 09/07/22 0:08:00 EST, STAT, Start date 09/07/22 0:08:00 EST, 09/07/22 0:08:00 EST predniSONE, 50 mg = 1 tab(s), Oral, Daily, X 5 day(s), # 5 tab(s), Refills(s) 0, Pharmacy: [facility]/pharmacy #[id number], 150, cm, 09/06/22 23:56:00 EST, Height/Length [...] Date:09/11/2022 03:00:00 PM Scheduled Provider:ALINE GUERRERO MD Location:[facility] Appointment Type: ER/Hospital Follow Up Appointment Date:09/25/2022 03:20:00 PM Scheduled Provider:Teodora Ott CNP [facility]oint[facility] Type:[facility] Follow Up Appointment Date:10/01/2022 07:00:00 AM Scheduled Provider:Silvestre Benavides MD Location:[facility] Appointment Type: Open Appointment Date:11/21/2022 03:00:00 PM Scheduled Provider:Haim Do DO Location:.ONCOLOGY Appointment Type:ONC Office Visit 15 (FT) Future Scheduled Tests Laboratory* CBC w/ Auto Diff 04/05/22 * CBC w/ Auto Diff 11/21/22 * Comprehensive Metabolic Panel 11/21/22 * Ferritin 11/21/22 * Iron Level 11/21/22 * Iron Percent Saturation 11/21/22 Radiology* NM Gastric Emptying Study 10/13/21 [facility]03-10-2023 Hospital Discharge instructions Patient Education 09/07/2022 02:01:10 Sinusitis, Adult, Inza-nq-Jpth Sinusitis, Adult Sinusitis is soreness and swelling [...] at home: Medicines Take, use, or apply ebdb-hnh-wkgvcfb and prescription medicines only as told by [...] is no soap and water, use hand clerk of works. Do not smoke. Avoid being around people [...] 12/03/2008 Document Revised: 11/17/2018 Document Reviewed: 11/17/2018 [employer] Patient Education 2020 [employer]. 09/07/2022 02:01:10 Asthma, Adult, Bwtk-ct-Ikjx Asthma, Adult Asthma is a long-term (chronic) [...] pollute the air. These may include household refrigeration engine operator, wood smoke, smog, or chemical odors. Cold [...] you are not home. Use a vacuum beer coil cleaner with a HEPA filter if possible. [...] and water are not available, use hand clerk of works. Do not allow anyone to smoke in your home. General instructions Take grmy-thm-ehklxkh and prescription medicines only as told by [...] 12/03/2008 Document Revised: 08/20/2019 Document Reviewed: 07/22/2017 [employer] Patient Education 2020 [employer]. Follow Up Care 09/06/2022 23:48:56 With:ALINE GUERRERO Address: [address] [place] [address] Business (1) When:09/10/2022 Comments:Take the [...] ED for any new or worsening symptoms. [facility]03-03-2023 Evaluation note* Encounter Date Diagnosis Assessment Notes [...] for fever/discomfort, cool mist humidifier. May use Randolph as needed for cough, do not take any other OTCs while using Randolph. Patient to follow up with PCP in 2-3 days. Immediate eval if SOB, difficulty breathing, chest pain, dizziness, or other concerning symptoms. Patient verbalizes understanding and is agreeable to treatment plan [facility] Other 01-20-2023 Miscellaneous Notes* Telephone Encounter - [...] Days Visit Type Date Time Department [facility] 12/03/2022 6:40 AM [facility] CBC: CBC Latest Ref Rng [...] No Latex Allergy [Other], and Penicillins (home) [phone] (work) [phone] (cell) Reason for call: Patient calling, insurance [...] complete patient specific tasks. documented in this encounterK[facility]01-16-2023 Hospital Discharge instructions Follow Up Care 07/16/2022 13:51:14 With:Maximino HDZ, [employer] Address: [address] [place] [address]- When: only if needed [facility]12-19-2022 Miscellaneous Notes* Telephone Encounter - Stevo Neff [...] she have her treatment [facility] or another Facility? Please advise. * Telephone [...] 1 tablet per day. documented in this encounterKettering [facility]12-07-2022 History of Present illness Narrative* Tram Rainer - 06/06/2022 4:10 PM EST Ortho Nurse - Established Patient Intake Room#: 3 Date: 06/06/2022 4:18 PM Patient: Carolina Gutierrez MR#: [id number] : 1960 Age: 61 y.o. 4m R [...] Laterality: Right; Surgeon: Puja Pendleton MD; Location: [facility] OR ARTHROPLASTY KNEE TOTAL Bilateral partial CHOLECYSTECTOMY [...] have reviewed the findings of the clinical field support representative and agree with their assessment. Ortho Nurse - Established Patient Intake Room#: 3 Date: 06/06/2022 4:18 PM Patient: Carolina Gutierrez MR#: [id number] : 1960 Age: 61 y.o. 4m R [...] keflex [cephalexin], and penicillins. documented in this [facility]11-26-2022 Evaluation note* Encounter Date Diagnosis Assessment Notes Treatment Notes Treatment Clinical Notes May, Viral upper respiratory infection (ICD-10 - J06.9) Viral upper respiratory infection: adult home care material was printed Drink plenty fluids, get plenty of rest. Continue home medications as prescribed. Take Sudafed for congestion. Follow-up with your family physician if no improvement in 2 to 3 days. [facility] Other 11-22-2022 Evaluation + Plan noteExtracted from: [...] 05/30/2022 09:00 AM EST [address] [place] [address] Business (1) Additional Instructions: If [...] EST fluticasone nasal, 0.1 mg, 2 spray(s), [place], Nasal, Daily, Routine, Start date 05/22/22 9:00:00 [...] 05/29/22 * NM Gastric Emptying Study 10/13/21 [facility]11-22-2022 Hospital Discharge instructions Patient Education 05/22/2022 09:23:13 [...] ?Squatting. ?Moving his or her legs. Give zben-haf-dnuhkxw and prescription medicines only as told by [...] 03/26/2009 Document Revised: 05/30/2018 Document Reviewed: 07/23/2017 [employer] Patient Education 2020 [employer] 05/22/2022 09:23:13 Syncope Syncope Syncope refers [...] right away. Call your local emergency services ([address] in [address] [place] Donot drive yourself to [...] your urine pale yellow. General instructions Take mfff-qje-vbybahz and prescription medicines only as told by [...] right away. Call your local emergency services (331 in the [place] Do not drive yourself [...] 06/17/2006 Document Revised: 05/30/2018 Document Reviewed: 05/26/2018 [employer] Patient Education 2020 [employer] Follow Up Care 05/22/2022 00:05:48 With:ALINE GUERRERO Address: [address] [facility] [place] [address] Business (1) When:05/30/2022 09:00:00 Comments:If patient prefers different time she can calll to get a later time Call physician if symptoms worsen [facility]11-21-2022 Hospital Discharge instructions Patient Education 05/21/2022 08:28:38 [...] what activities are safe for you. Take uacm-lbl-elwdwcn and prescription medicines only as told by [...] 12/16/2012 Document Revised: 12/09/2018 Document Reviewed: 11/17/2018 [employer] Patient Education 2020 [employer]. [facility]11-11-2022 Hospital Discharge instructions Patient Education 05/11/2022 14:41:44 [...] Follow these instructions at home: Medicines Take dfsb-hqd-czuiidx and prescription medicines only as told by your health care provider. If you were prescribed an antibiotic medicine, take it as told by your health care provider. Do notstop taking the antibiotic even if you start to feel better. Eating and drinking Follow any diet changes as told by your health care provider. Work with a diet and pet nutrition specialist (dietitian) to create an eating plan [...] 06/14/2001 Document Revised: 11/11/2019 Document Reviewed: 11/11/2019 [employer] Patient Education 2019 [employer]. Follow Up Care 05/04/2022 13:34:33 With:Teodora Ott CNP Address: When:1 to 2 weeks [facility] 11-11-2022 Miscellaneous Notes* Telephone [...] to My Chart if tests completed at [facility]: High inflammatory tests associated with known [...] accordingly. Stevo Neff MD documented in this encounterK[facility]11-09-2022 Miscellaneous Notes* Telephone Encounter - Stevo Neff [...] EST Dr. Neff pt documented in this encounterKettering [facility]11-04-2022 NoteOPERATIVE NOTE OPERATION DATE: 05/03/2022 PREOPERATIVE DIAGNOSIS: [...] taken to the PACU in good condition.[id number] Evaluation note* Encounter Date Diagnosis Assessment Notes [...] no improvement in 2 to 3 days. [facility] Other 10-16-2022 Evaluation note* Encounter Date Diagnosis Assessment Notes Treatment Notes Treatment Clinical Notes Mar, Persistent cough (ICD-10 - R05.3) Advised patient that chest XR findings are negative. With no improvement with medications, will send in rx of Doxycycline and Randolph to use as directed. Advised patient she needs follow up with PCP in 2-3 days. Immediate evalution in ER for signs/symptoms as discussed. Patient verbalizes understanding and is agreeable with treatment plan [facility] Other 10-06-2022 Evaluation note* Encounter Date Diagnosis [...] weeks for the cough to go away [facility] Other 08-18-2022 History of Present illness Narrative* Tram Rainer - 02/15/2022 2:00 PM EDT Ortho Nurse - Established Patient Intake Room#: 4 Date: 02/15/2022 2:20 PM Patient: Carolina Gutierrez MR#: [id number] : 1960 Age: 61 y.o. 3wk S/P R TKA Pt stated she is doing good she still has a limp and her pain is a 6/10 on the pain scale. Pt was not wearting her edgar hose and using a cane at the time of visit. Referring Physician: eMdardo Vuong APRN-CNP Insurance: Payor: JESYS / Plan: [facility] P[facility] POS / Product Type: *No [...] understanding. All pertinent portions of the clinical field support representative documentation was reviewed and agree. JONATHAN Schwartz I have reviewed the findings of the clinical field support representative and agree with their assessment. JONATHAN Schwartz Ortho Nurse - Established Patient Intake Room#: 4 Date: 02/15/2022 2:20 PM Patient: Carolina Gutierrez MR#: [id number] : 1960 Age: 61 y.o. 3wk S/P R TKA Pt stated she is doing good she still has a limp and her pain is a 6/10 on the pain scale. Pt was not wearting her edgar hose and using a cane at the time of visit. Referring Physician: Medardo Vuong APRN-CNP Insurance: Payor: [facility] / [facility]: [facility] / Product Type: *No [...] keflex [cephalexin], and penicillins. documented in this encounterScci Hospital [facility]07-27-2022 Note* Nursing Notes - Greta Claudio RN - 01/24/2022 4:09 PM EDT Patient states pain has improved slightly. Still rates a 7-8/10. OnQ ball decreased to 4. Patient states she is comfortable discharging. [facility] Miscellaneous Notes* Nursing Notes - Greta Claudio [...] been happy with her care here at [facility]. * Op Note - Puja Pendleton MD - 01/24/2022 7:52 AM EDT DATE OF PROCEDURE: 01/23/2022 ATTENDING PHYSICIAN: Puja Pendleton M.D. ELECTROMAGNET CRANE OPERATOR: Medardo Vuong CNP. 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 POSTOPERATIVE DIAGNOSES: 1. 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 3. Fracture of the medial epicondyle, incompetent medial collateral ligament. PROCEDURES PERFORMED: 1. Revision both components right total knee arthroplasty, 18152 2. Periarticular injection right knee. 3. Placement of continuous catheter adductor canal. ANESTHESIA: General. ANESTHESIOLOGIST: Per record. ESTIMATED BLOOD LOSS: 25 mL. COMPLICATIONS: None. INTRAVENOUS FLUIDS: Adequate. SPECIMENS: Bone. INSTRUMENTATION USED: Moove Inuy Attune size 5 right CRS femoral component [...] 0-Vicryl and 0-Quill for the subcuticular layer, saha for the skin. The extremity was cleansed, [...] procedure) without the assistance of a skilled surgical asst. A surgical asst was medically necessary for positioning, retraction and [...] NOTE Carolina Manning Alt 61 y.o. female [id number] SURGEON Surgeon(s) and Role: * Puja Pendleton MD - Primary ELECTROMAGNET CRANE OPERATOR JONATHAN Schwartz ANESTHESIOLOGIST CORE PLACER: GURPREET Britton SURGICAL STAFF Redrying Machine Operator: Cathy Ashby RN; Waldemar Churchill RN Nurse Practitioner: JONATHAN Schwartz Scrub Person: Silver Alcantar RN; hCayo Evans; Imani Jimenez; Tonia Gibbons RN PROCEDURE [...] Implant Name Type Inv. Item Serial No. Image Scientist Lot No. LRB No. Used Action PALACOS R+G 1X40 SINGLE WITH GENTAMICIN - [id number] Other PALACOS R+G 1X40 SINGLE WITH GENTAMICIN [id number] Right 3 Implanted PATELLA - KNEE - [id number] PATELLA - KNEE DEPUY [id number] Right 1 Implanted PRESSFIT STEM - KNEE - [id number] PRESSFIT STEM - KNEE DEPUY [id number] Right 1 Implanted Revision Tibial Sleeve Porocoat Partially Coated 29mm DEPUY [id number] Right 1 Implanted revision Tibial Base Rotating Platform size 3 DEPUY [id number] Right 1 Implanted PRESSFIT STEM - KNEE - [id number] PRESSFIT STEM - KNEE DEPUY [id number] Right 1 Implanted Revision Distal Femoral Augment size 5 12mm DEPUY [id number] Right 1 Implanted Revision Posterior Femoral Augment size 5 4mm DEPUY [id number] Right 1 Implanted Revision Offset Stem Adaptor 4mm DEPUY [id number] Right 1 Implanted revision CRS Femoral size 5 right DEPUY [id number] Right 1 Implanted Revision CRS Rotating Platform Insert size 5 10mm AOX DEPUY [id number] Right 1 Implanted SPECIMENS ID Type Source Tests Collected by Time Destination A : Anterior Synovium x3 Tissue TISSUE FUNGUS CULTURE, ACID FAST CULTURE, TISSUE, ANAEROBE CULTURE,BACTERIAL CULTURE AND DIRECT SMEAR, LESION, TISSUE, DEVICE Puja Pendleton MD 01/23/2022 1235 Medardo Vuong APRN-QUALITY ASSURANCE SUPERVISOR January 23, 2022 2:18 PM * Nursing Notes - Jacqueline Blake RN - 01/23/2022 11:59 AM EDT Pt off unit to surgery * Nursing Notes - Amanda Mantilla RN - 01/18/2022 1:42 PM EDT 01/18/22 1338 Information Source Information Source patient Contact Information Brick Molder Hand Name Amanda Mantilla RN Case Manager's Living Environment Lives With spouse Living Arrangements house (One story home) Provides Primary Care For no one Primary Care Provided By self Support System Immediate family Able to Return to Prior Arrangements yes Employment/Financial Employed? 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 Cognitive/Perceptual/Developmental Current [...] that she plans to return home with [facility] and then would later like to go to outpatient therapy at [facility]. Patient states that she has a wheeled walker, patient to instructed to bring with her on the day of surgery. Patient denies any other questions or needs at this time. CM to continue to follow and assist with discharge plans. documented in this encounterScci Hospital [facility]07-27-2022 Note* Nursing Notes - Greta Claudio RN - 01/24/2022 4:07 PM EDT Medardo at bedside speaking with patient. [facility] History of Present illness Narrative* Azra Franco, [...] instructions and continuity of care faxed to [facility]. * Amanda Mantilla RN - 01/24/2022 9:09 AM EDT Met with patient for follow up regarding discharge plan. Patient to return home with [facility].Questions answered regarding HHC and hemovac drain. Reviewed with patient that if she returns home with drain she will empty and record output, her [facility] nurse will report output to Dr. Pendleton's [...] Supine to Sit, Rehab Eval Level of [place]: Supine/Sit stand-by assist Physical Assist/Nonphysical Assist: Supine/Sit 1 person assist Transfer Skill: Sit to Stand, Rehab Eval Level of [place]: Sit/Stand contact guard Physical Assist/Nonphysical Assist: Sit/Stand 1 person assist Weight-Bearing Restrictions: Sit/Stand weight-bearing as tolerated Assistive Device for Transfer: Sit/Stand wheeled walker Upper Body Dressing Level of [place] independent Physical Assist/Nonphysical Assist set-up required Lower Body Dressing Level of [place] moderate assist (50% patients effort) Physical Assist/Nonphysical [...] hygiene training Therapist Information License # [id number] 1. Pt will complete LB dressing MOD [...] Supine to Sit, Rehab Eval Level of [place]: Supine/Sit stand-by assist Physical Assist/Nonphysical Assist: Supine/Sit 1 person assist Transfer Skill: Sit To Stand, Rehab Eval [place] (Sit-Stand Transfers) contact guard Physical Assist/Nonphysical Assist: Sit/Stand 1 person assist Weight-Bearing Restrictions: Sit/Stand weight-bearing as tolerated Assistive Device For Transfer: Sit/Stand 2 wheeled walker Gait Skills, PT Eval Level of [place]: Gait contact guard Physical Assist/Nonphysical Assist: Gait [...] plans to return home with spouse and [facility]. [facility]erral [facility] prior to surgery, [facility] called back to report that C [...] request a 3 week follow up appointment. [facility] to remove asha. Patient denies any other questions or needs at this time. Updated patient information faxed to [facility]. Follow up appointment scheduled for 02/15/22 @ [...] DISCUSSED WITH DR PENDLETON. documented in this encounterScci Hospital [facility]07-27-2022 Note* Nursing Notes - Greta Claudio RN - 01/24/2022 3:16 PM EDT Patient complaining of continuing 8/10 knee pain even after oxycodone and increasing onQ ball for one hour. Medardo Vuong CNP is notified. He orders a 5mg one time dose of oxycodone and to increase onQball, will do this and monitor pain. [facility]07-27-2022 Note* Nursing Notes - Greta Claudio RN [...] given to patient. She denies further questions. [facility]07-27-2022 Consult note* Andrea Bedolla MD - 01/24/2022 [...] CARE 132 (H) 70 - 100 MG/DL Equipment Mechanic 205,925 GLUCOSE (POC DEVICE) Result Value Ref Range GLUCOSE, POINT OF CARE 196 (H) 70 - 100 MG/DL Equipment Mechanic 206,281 GLUCOSE (POC DEVICE) Result Value Ref Range GLUCOSE, POINT OF CARE 169 (H) 70 - 100 MG/DL Equipment Mechanic 206,821 REPEAT ABO/RH (D) TYPING Result Value [...] stable for discharge. Andrea Bedolla MD 01/24/2022 [facility] Work Phone: [phone] 296-251807-27-2022 Consult note* Andrea Bedolla MD - 01/24/2022 [...] CARE 132 (H) 70 - 100 MG/DL Equipment Mechanic 205,925 GLUCOSE (POC DEVICE) Result Value Ref Range GLUCOSE, POINT OF CARE 196 (H) 70 - 100 MG/DL Equipment Mechanic 206,281 GLUCOSE (POC DEVICE) Result Value Ref Range GLUCOSE, POINT OF CARE 169 (H) 70 - 100 MG/DL Equipment Mechanic 206,821 REPEAT ABO/RH (D) TYPING Result Value [...] Andrea Bedolla MD 01/23/2022 [facility]* Nursing Notes - Greta Claudio RN - 01/24/2022 11:20 AM EDT Assessment is complete and remains unchanged from previous at this time with any exceptions noted in the flowsheet. Patient denies further needs and is left with call light and personals in reach. [facility]07-27-2022 Note* Nursing Notes - Nata Lawrence RN [...] been happy with her care here at [facility]. [facility]-27-2022 Hospital Discharge instructions* Discharge Instructions* Amanda Mantilla [...] - 01/24/2022 8:16 AM EDT Contact Office ([phone]) if: > Total Knee ROM < 90 [...] also empty the drain anytime it is penitentiary full. Follow these steps to empty your [...] Home Care, please call Dr. Pendleton's nurse ([phone]) the morning after discharge with the recorded [...] sent through Care Everywhere. * Enoxaparin (Lovenox) (Macanese) * docusate (oral/rectal) (Macanese) [facility]* Op Note - Puja Pendleton MD - 01/24/2022 7:52 AM EDT DATE OF PROCEDURE: 01/23/2022 ATTENDING PHYSICIAN: Puja Pendleton M.D. ELECTROMAGNET CRANE OPERATOR: Medardo Vuong CNP. 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 POSTOPERATIVE DIAGNOSES: 1. 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 3. Fracture of the medial epicondyle, incompetent medial collateral ligament. PROCEDURES PERFORMED: 1. Revision both components right [place], [address] 2. Periarticular injection right knee. 3. Placement [...] procedure) without the assistance of a skilled surgical asst. A surgical asst was medically necessary for positioning, retraction and instrume ntation. [facility] Work Phone: 1(494) 983-399307-27-2022 Note* Nursing Notes - Rosa Haque RN - 01/24/2022 6:40 AM EDT Vazquez removed 06 [facility]07-27-2022 Note* Plan of Care - Rosa Haque [...] Franco OT 01/23/2022 6:33 PM Outcome: Ongoing [facility]07-27-2022 Note* Nursing Notes - Rosa Haque RN - 01/24/2022 4:00 AM EDT No change to assessment at this time - will continue to monitor. [facility]07-26-2022 Consult note* Andrea Bedolla MD - [...] am. GI prophylaxis. Andrea Bedolla MD 01/23/2022 [facility]07-26-2022 Note* Nursing Notes - Jacqueline Blake RN - 01/23/2022 4:17 PM EDT Assessment is complete and remains unchanged from previous at this time with any exceptions noted in the flowsheet. Patient denies further needs and is left with call light and personals in reach. [facility]07-26-2022 Nurse Note* Margarita Lockett RN - 01/23/2022 2:52 PM EDT Patient transported to room 3760 by bed with 2 RN's. Patient stable and family waiting in room. Bedlock and in low position. Report given to Eneida RN. Wound reviewed and Qball check and is unclamped and infusing. [facility] Nurse Surgical operation note* Margarita Lockett RN - 01/23/2022 2:52 PM EDT Patient transported to room 3760 by bed with 2 RN's. Patient stable and family waiting in room. Bedlock and in low position. Report given to Eneida RN. Wound reviewed and Qball check and is unclamped and infusing. [facility]07-26-2022 Note* Brief Op Note - JONATHAN Schwartz - 01/23/2022 2:18 PM EDT POST OPERATIVE/PROCEDURE NOTE Carolina Manning Alt 61 y.o. female [id number] SURGEON Surgeon(s) and Role: * Puja Pendleton MD - Primary ELECTROMAGNET CRANE OPERATOR JONATHAN Schwartz ANESTHESIOLOGIST CORE PLACER: Kodak Falcon APRN-KAREN SURGICAL STAFF Redrying Machine Operator: Cathy Ashby RN; Waldemar Churchill, RN Nurse [...] Implant Name Type Inv. Item Serial No. Image Scientist Lot No. LRB No. Used Action PALACOS R+G 1X40 SINGLE WITH GENTAMICIN - [id number] Other PALACOS R+G 1X40 SINGLE WITH GENTAMICIN [id number] Right 3 Implanted PATELLA - KNEE - [id number] PATELLA - KNEE DEPUY [id number] Right 1 Implanted PRESSFIT STEM - KNEE - [id number] PRESSFIT STEM - KNEE DEPUY [id number] Right 1 Implanted Revision Tibial Sleeve Porocoat Partially Coated 29mm DEPUY [id number] Right 1 Implanted revision Tibial Base Rotating Platform size 3 DEPUY [id number] Right 1 Implanted PRESSFIT STEM - KNEE - [id number] PRESSFIT STEM - KNEE DEPUY [id number] Right 1 Implanted Revision Distal Femoral Augment size 5 12mm DEPUY [id number] Right 1 Implanted Revision Posterior Femoral Augment size 5 4mm DEPUY [id number] Right 1 Implanted Revision Offset Stem Adaptor 4mm DEPUY [id number] Right 1 Implanted revision CRS Femoral size 5 right DEPUY [id number] Right 1 Implanted Revision CRS Rotating Platform Insert size 5 10mm AOX DEPUY [id number] Right 1 Implanted SPECIMENS ID Type Source Tests Collected by Time Destination A : Anterior Synovium x3 Tissue TISSUE FUNGUS CULTURE, ACID FAST CULTURE, TISSUE, ANAEROBE CULTURE,BACTERIAL CULTURE AND DIRECT SMEAR, LESION, TISSUE, DEVICE Puja Pendleton MD 01/23/2022 1235 Medardo Vuong APRN-QUALITY ASSURANCE SUPERVISOR January 23, 2022 2:[address] [facility]07-26-2022 Note* Nursing Notes - Jacqueline Blake RN - 01/23/2022 11:59 AM EDT Pt off unit to surgery [facility]07-21-2022 Note* Nursing Notes - Amanda Mantilla RN - 01/18/2022 1:42 PM EDT 01/18/22 1338 Information Source Information Source patient Contact Information Brick Molder Hand Name Amanda Mantilla RN Case Manager's Living Environment Lives With spouse Living Arrangements house (One story home) Provides Primary Care For no one Primary Care Provided By self Support System Immediate family Able to Return to Prior Arrangements yes Employment/Financial Employed? 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 Cognitive/Perceptual/Developmental Current [...] that she plans to return home with [facility] and then would later like to go to outpatient therapy at [facility]. Patient states that she has a wheeled walker, patient to instructed to bring with her on the day of surgery. Patient denies any other questions or needs at this time. CM to continue to follow and assist with discharge plans. [facility]07-14-2022 History of Present illness Narrative* Freddy Manrique LPN - 01/11/2022 10:10 AM EDT Ortho Nurse - Patient Intake Room#: 2 Right knee pain of 6, partial done in 2009, no interventions since partial Date: 01/11/2022 10:28 AM Patient: Carolina Gutierrez MR#: [id number] : 1960 Age: 61 y.o. 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 [] [x] Name: Are you followed by pain management? [] [x] Name: Are you followed by any other specialists? 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 Patient left in stable condition [facility] 05-04-2022 Evaluation note* Encounter Date Diagnosis [...] medication issues. 6. Prescriptions: Ozempic sent to [facility]. October, Hyperlipidemia, unspecified hyperlipidemia type (ICD-10 - E78.5) High cholesterol material was published 11/18 ldl 129- above target discuss with pcp consider starting statin per ada guidelines October, Dietary counseling and surveillance (ICD-10 - Z71.3) Eat well, exercise well, be well: dietary and fitness guidelines material was published see above October, BMI 35.0-35.9,adult (ICD-10 - Z68.35) Setting weight-loss goals material was published [facility] 04-15-2022 Hospital Discharge instructions Patient Education [...] water added (diluted fruit juice). Eat bland, bcvj-wx-chwutr foods in small amounts as you are able. These foods include bananas, applesauce, rice, lean meats, toast, and crackers. Avoid drinking fluids that contain a lot of sugar or caffeine, such as energy drinks, sports drinks, and soda. Avoid alcohol. Avoid spicy or fatty foods. General instructions Take kbna-oiu-jadhybv and prescription medicines only as told by your health care provider. Rest at home while you recover. Drink enough fluid to keep your urine pale yellow. Breathe slowly and deeply when you feel nauseous. Avoid smelling things that have strong odors. Wash your hands often using soap and water. If soap and water are not available, use hand clerk of works. Make sure that all people in your [...] recommendations for eating and drinking and take ubiu-qit-vblokyl and prescription medicinesonly as told by your [...] 07/25/2005 Document Revised: 11/25/2018 Document Reviewed: 11/25/2018 [employer] Patient Education 2020 [employer]. Follow Up Care 09/14/2021 16:00:30 With:Teodora Ott CNP Address: When:1 month [facility] 04-06-2022 Hospital Discharge instructions Follow Up Care 10/04/2021 16:19:35 With:Haim Do Address: [place] [address] [place] [address]- [phone] Fax Business (1) When: Unknown Comments:cbc, cmp, iron studies in 6mofollow-up in 6mo [facility]03-21-2022 Hospital Discharge instructions Follow Up Care 09/18/2021 12:56:54 With:Haim Do Address: [place] [address] [employer] [facility] [place] [address]- [phone] Fax Business (1) When: Unknown Comments:soon check iron studies, vitamin B12, esr, folate erythropoietin, reticulocyte count, SPEP, serum free light chains, serum immunofixation. Also check CBC and CMP soon. check cbc prior to f/u in 6 months. [facility]02-28-2022 Evaluation note* Encounter Date Diagnosis Assessment Notes [...] right wrist, initial encounter (ICD-10 - S69.91XA) [facility] 10-06-2021 Evaluation note* Encounter Date Diagnosis [...] diabetes medication issues. 6. Prescriptions: Ozempic refilled [facility] Other 12-01-2020 History general Narrative - Reported* [...] Surgery bilateral Hospitalization History see surgical hx [facility] 12-01-2020 History general Narrative - Reported* [...] bilaterally 05/2021 Hospitalization History see surgical hx [facility] 12-01-2020 History general Narrative - Reported* [...] replacement 12/2021 Hospitalization History see surgical hx [facility] 12-01-2020 History general Narrative - Reported* [...] Throat 05/2022 Hospitalization History see surgical hx [facility] 12-01-2020 History general Narrative - Reported* [...] Hospitalization History see surgical hx Hospitalization History [facility] 08/2022 [facility] Other 06-10-2016 Miscellaneous Notes* Telephone Encounter - [...] FreeT3. If low, may benefit by using Varney Thyroid (she took disecated thyroid in 2003). Order entered. Component Latest Ref Rng 08/26/15 TSH 0.400 - 5.500 uU/mL 0.7(L) Free T4 0.7 - 1.8 ng/dL 1.7 * Telephone Encounter - Shila Fracno - 11/24/2015 2:07 PM EDT Patient called states that she is gaining weight and not losing not matter what type of diet she blas. Patient feels her dosage of medication may be off. Patient aslo would like to go over lab results from 08/16. Patient states that she did not receive a copy of the lab report. Please advise. [facility]+Reason for visit Narrative* Chief Complaint METER Reason for Visit Dietary counseling a nd surveillance Hyperlipidemia Type 2 diabetes mellitus [facility] Work Phone: Evaluation + Plan note Future Appointments Appointment Date:10/13/2021 11:00:00 AM Scheduled Provider:Teodora Ott CNP [facility] Appointment Type:BADH Follow Up Appointment [...] 09/14/21 * CBC w/ Auto Diff [facility]05/22 [facility] Future Appointments Appointment Date:10/13/2021 11:00:00 AM Scheduled Provider:Teodora Ott CNP [place] Appointment Type:[facility] Follow Up Appointment Date:04/04/2022 02:45:00 PM Scheduled Provider:Haim Do DO [facility] Type:ONC Office Visit 15 (FT) Diagnostic Tests Pending * Enteric Panel by PCR 10/07/21 * O & P Exam, Routine 10/07/21 * Giardia lamblia, Direct Detection EIA 10/07/21 Future Scheduled Tests Laboratory* CBC w/ Auto Diff 04/05/22 [facility] Future Appointments Appointment Date:11/23/2021 04:00:00 PM Scheduled Provider:Teodora Ott CNP [place] Appointment Type:[facility] Follow Up Appointment Date:04/04/2022 02:45:00 PM Scheduled Provider:Haim Do DO [facility] Type:ONC Office Visit 15 (FT) Future Scheduled Tests Laboratory* CBC w/ Auto Diff 04/05/22 Radiology* NM Gastric Emptying Study 10/13/21 [facility] Evaluation + Plan note Future Appointments Appointment Date:04/04/2022 02:45:00 PM Scheduled Provider:Haim Do DO Location:.ONCOLOGY Appointment Type:ONC Office Visit 15 (FT) Future Scheduled Tests Laboratory* CBC w/ Auto Diff 04/05/22 Radiology* NM Gastric Emptying Study 10/13/21 [facility] Evaluation + Plan note Future Appointments Appointment Date:05/17/2022 03:30:00 PM Scheduled Provider:Lorene Gordillo Location:.ONCOLOGY Appointment Type:ONC Office Visit 15 (FT) Appointment Date:05/21/2022 08:00:00 AM Scheduled Provider: Location:[facility] Appointment Type:Surgery FT Future Scheduled Tests Laboratory* CBC w/ Auto Diff 04/05/22 Radiology* NM Gastric Emptying Study 10/13/21 [facility] Evaluation + Plan note Future Appointments Appointment Date:05/21/2022 08:00:00 AM Scheduled Provider: Location:[facility] Appointment Type:Surgery FT Appointment Date:05/21/2022 08:30:00 AM Scheduled Provider:Lorene Gordillo Location:FT.ONCOLOGY Appointment Type:ONC Office Visit 15 (FT) Future Scheduled Tests Laboratory* CBC w/ Auto Diff 04/05/22 Radiology* NM Gastric Emptying Study 10/13/21 [facility] Future Appointments Appointment Date:11/21/2022 03:00:00 PM Scheduled Provider:Haim Do DO Location:.ONCOLOGY Appointment Type:ONC Office Visit 15 (FT) Future Scheduled Tests Laboratory* CBC w/ Auto Diff 04/05/22 * CBC w/ Auto Diff 11/21/22 * Comprehensive Metabolic Panel 11/21/22 * Ferritin 11/21/22 * Iron Level 11/21/22 * Iron Percent Saturation 11/21/22 Radiology* NM Gastric Emptying Study 10/13/21 [facility] Future Appointments Appointment Date:06/21/2022 08:00:00 AM Scheduled Provider: [facility] Appoint[facility] Type:NM Myocard Spect Multi Rest/Stress-Res Appointment Date:06/21/2022 09:00:00 AM Scheduled Provider: [facility] Appointment Type:NM Myocard Spect Multi Rest/Stress - R Appointment Date:06/21/2022 09:30:00 AM Scheduled Provider: [facility] Appointment Type:NM Myocard Spect Multi Rest/Stress-Str Appointment Date:06/21/2022 10:30:00 AM Scheduled Provider: [facility] Appointment Type:NM Myocar Spect Multi Rest/Stress - St Appointment Date:11/21/2022 03:00:00 PM Scheduled Provider:Haim Do DO [facility] Appoint[facility] Type:ONC Office Visit 15 (FT) Future Scheduled Tests Laboratory* CBC w/ Auto Diff 04/05/22 * CBC w/ Auto Diff 11/21/22 * Comprehensive Metabolic Panel 11/21/22 * Ferritin 11/21/22 * Iron Level 11/21/22 * Iron Percent Saturation 11/21/22 Radiology* NM Myocardial Spect Rest/Stress 1 Day 06/21/22 * NM Gastric Emptying Study 10/13/21 [facility] Future Appointments Appointment Date:07/24/2022 03:30:00 PM Scheduled Provider:Serge SLOAN CNP [facility] Type:Cardiology Follow Up (FT) Appointment Date:11/21/2022 03:00:00 PM Scheduled Provider:Haim Do DO [facility] Appoint[facility] Type:ONC Office Visit 15 (FT) Future Scheduled Tests Laboratory* CBC w/ Auto Diff 04/05/22 * CBC w/ Auto Diff 11/21/22 * Comprehensive Metabolic Panel 11/21/22 * Ferritin 11/21/22 * Iron Level 11/21/22 * Iron Percent Saturation 11/21/22 Radiology* NM Gastric Emptying Study 10/13/21 [facility] Future Appointments Appointment Date:12/12/2022 03:45:00 PM Scheduled Provider:Haim Do DO [facility] Appoint[facility] Type:ONC Office Visit 15 (FT) Appointment Date:12/27/2022 08:20:00 AM Scheduled Provider: [facility] Lab Draw Appointment Date:01/14/2023 04:00:00 PM Scheduled Provider:Silvestre Benavides MD Location:[facility] Appointment Type:FM Open Appointment Date:04/05/2023 01:40:00 PM Scheduled Provider:Teodora Ott CNP [place] Appointment Type:[facility] Follow Up Future Scheduled Tests Laboratory* HgbA1c 10/01/22 * TSH With T4fr Reflex 10/01/22 * CBC w/ Auto Diff 04/05/22 * CBC w/ Auto Diff 10/01/22 * CBC w/ Auto Diff 11/21/22 * Comprehensive Metabolic Panel 10/01/22 * Comprehensive Metabolic Panel 11/21/22 * Ferritin 11/21/22 * Iron Level 11/21/22 * Iron Percent Saturation 11/21/22 * Lipid Panel 10/01/22 [facility] evaluation + Plan note Future Appointments Appointment Date:01/29/2024 02:00:00 PM Scheduled Provider:Berry Canales Location:[facility] Appointment Type: Hospital Follow Up w/TCM Future Scheduled Tests Laboratory* CBC w/ Auto Diff 05/10/23 [facility] evaluation + Plan note Future Appointments Appointment Date:02/06/2024 03:30:00 PM Scheduled Provider:Oswald Curry PA-C Location:[facility] Clinic Appointment Type:Cardiology Inpatient Follow Up (FT) Future Scheduled Tests Laboratory* CBC w/ Auto Diff 05/10/23 [facility] evaluation + Plan note Future Appointments Appointment Date:03/03/2024 03:00:00 PM Scheduled Provider: [facility] Type:CV Holter/Event (FT) Appointment Date:03/12/2024 08:00:00 AM Scheduled Provider:Oswald Curry PA-C Location:[facility] Appointment Type:Cardiology Follow Up (FT) Future Scheduled Tests Laboratory* CBC w/ Auto Diff 05/10/23 [facility] evaluation + Plan note Future Appointments Appointment Date:03/12/2024 08:00:00 AM Scheduled Provider:Oswald Curry PA-C Location:[facility] Appointment Type:Cardiology Follow Up (FT) Future Scheduled Tests Laboratory* CBC w/ Auto Diff 05/10/23 [facility] evaluation + Plan note Future Appointments Appointment Date:06/22/2024 01:15:00 PM Scheduled Provider:Oswald Curry PA-C Location:[facility] Appointment Type:Cardiology Follow Up (FT) Future Scheduled Tests Laboratory* CBC w/ Auto Diff 05/10/23 [facility] evaluation + Plan note Future Appointments Appointment Date:09/28/2024 01:45:00 PM Scheduled Provider:Oswald Curry PA-C Location:[facility] Appointment Type:Cardiology Follow Up (FT) [facility] evaluation + Plan note Future Appointments Appointment Date:11/09/2024 01:00:00 PM Scheduled Provider:Oswald Curry PA-C Location:[facility] Appointment Type:Cardiology Follow Up (FT) [facility] evaluation + Plan note Future Appointments Appointment Date:02/08/2025 02:15:00 PM Scheduled Provider:Oswald Curry PA-C Location:[facility] Appointment Type:Cardiology Follow Up (FT) [facility] evaluation note* Diagnosis Unspecified hypothyroidism- Primary 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 [facility] Diagnosis Right knee pain, unspecified chronicity- Primary [facility] Diagnosis Acute postoperative pain of right knee- Primary 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, initial encounter documented in this encounter [facility]* Diagnosis Hx of total knee arthroplasty, right- Primary documented in this encounter [facility] noteNo assessment information availableMer[facility] Work Phone: evaluation note* Diagnosis Rheumatoid arthritis [...] nonspecific immunological findings documented in this encounter [facility] note* Diagnosis Hx of total knee arthroplasty, right- Primary [facility] Diagnosis Rheumatoid arthritis of multiple sites without rheumatoid factor (HCC)- Primary Rheumatoid arthritis documented in this encounter [facility] noteNo [facility] [employer] Other Evaluation note* Diagnosis Bilateral posterior capsular opacification- Primary Unspecified after-cataract [facility] Diagnosis Rheumatoid arthritis of multiple sites [...] other medical treatment documented in this encounter [facility] note* Diagnosis Left shoulder pain, unspecified chronicity- Primary documented in this encounter [facility] note* Diagnosis 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 Failed orthopedic implant, initial encounter ([facility]) documented in this encounter [facility] note* Diagnosis Left shoulder pain, unspecified chronicity documented in this encounter [facility] note* Diagnosis 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 Failed orthopedic implant, initial encounter ([facility]) documented in this encounter [facility] note* Diagnosis Loose orthopedic implant, subsequent encounter- Primary S/P reverse total shoulder arthroplasty, left documented in this encounter [facility] note* Diagnosis Onset Date Resolution Status Dietary counseling and surveillance acute Hyperlipidemia acute Type 2 diabetes mellitus [facility] Work Phone: Evaluation note* Diagnosis Pre-op examination- [...] Rheumatoid arthritis Failed orthopedic implant, initial encounter ([facility]) History of pulmonary embolism Personal history of pulmonary embolism 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 orthopedic implant, initial encounter ([facility]) * Assessment & Plan Note [...] to auscultation, follows with pulmonology annually in [place] * Assessment & Plan Note - Louis [...] meds work well [facility] Diagnosis Pre-op examination- Primary Preoperative examination, [...] Rheumatoid arthritis Failed orthopedic implant, initial encounter ([facility]) History of pulmonary embolism Personal history of pulmonary embolism 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 Failed orthopedic implant, initial encounter ([facility]) Loose orthopedic implant, subsequent encounter Status post reverse total replacement of left shoulder documented in this encounter [facility] note* Diagnosis Pre-op examination- Primary Preoperative examination, [...] Rheumatoid arthritis Failed orthopedic implant, initial encounter ([facility]) History of pulmonary embolism Personal history of pulmonary embolism 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 Status post reverse total replacement of left shoulder documented in this encounter [facility] note* Diagnosis Pre-op examination- Primary Preoperative examination, [...] Rheumatoid arthritis Failed orthopedic implant, initial encounter ([facility]) History of pulmonary embolism Personal [...] Stable, on Rinvoq and Celebrex. Follows with [facility] rheumatology, Dr. Neff. Pt was instructed [...] on metoprolol. Follows with outside cardiology at [facility] 03/23/24 Oswald Curry PA-C. Pt reports [...] JULIEN 03/25/[address] Del Rio [facility] 02/04/24. Lungs CTAB, SpO2 97% on RA. * Assessment & Plan Note - Serge Ty PA-C - 03/30/2024 3:53 PM EDTAssociated Problem(s): PONV (postoperative nausea and vomiting) Assessment: Pt reports PONV with previous surgeries/procedures. [facility] Diagnosis Pre-op examination- Primary Preoperative examination, [...] Rheumatoid arthritis Failed orthopedic implant, initial encounter ([facility]) History of pulmonary embolism Personal [...] implant, subsequent encounter documented in this encounter [facility] note* Diagnosis Pre-op examination- Primary Preoperative examination, [...] Rheumatoid arthritis Failed orthopedic implant, initial encounter ([facility]) History of pulmonary embolism Personal [...] implant, subsequent encounter documented in this encounter [facility] note* Diagnosis Pre-op examination- Primary Preoperative examination, [...] Rheumatoid arthritis Failed orthopedic implant, initial encounter ([facility]) History of pulmonary embolism Personal [...] Other postprocedural status [facility]* Diagnosis Osteoporosis, unspecified osteoporosis type, unspecified pathological fracture presence ([facility])- [facility] Diagnosis Pre-op examination- Primary Preoperative examination, [...] Rheumatoid arthritis Failed orthopedic implant, initial encounter ([facility]) History of pulmonary embolism Personal [...] Other postprocedural status [facility]* Diagnosis Pre-op examination- Primary Preoperative examination, [...] Rheumatoid arthritis Failed orthopedic implant, initial encounter ([facility]) History of pulmonary embolism Personal history of pulmonary embolism Preoperative examination- Primary Preoperative examination, unspecified Type 2 diabetes mellitus without complication, without long-term current use of insulin ([facility]) PONV (postoperative nausea and vomiting) [...] arthritis of multiple sites without rheumatoid factor ([facility]) Rheumatoid arthritis Dehiscence of operative wound, initial encounter [facility]* Diagnosis Pre-op examination- Primary Preoperative examination, [...] Rheumatoid arthritis Failed orthopedic implant, initial encounter ([facility]) History of pulmonary embolism Personal history of pulmonary embolism Preoperative examination- Primary Preoperative examination, unspecified Type 2 diabetes mellitus without complication, without long-term current use of insulin ([facility]) PONV (postoperative nausea and vomiting) [...] Other postprocedural status [facility]* Diagnosis 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, including hip- Primary Impetigo Actinic keratosis Encounter for postoperative wound check [facility] Diagnosis Pre-op examination- Primary Preoperative examination, [...] 40 Morbid obesity documented in this encounter [facility] note* Diagnosis Pre-op examination- Primary Preoperative examination, [...] complication, without long-term current use of insulin ([facility]) Anemia, unspecified type Rheumatoid arthritis of multiple sites without rheumatoid factor (HCC) Rheumatoid arthritis Failed orthopedic implant, initial encounter ([facility]) History of pulmonary embolism Personal history of pulmonary embolism Preoperative examination- Primary Preoperative examination, unspecified Type 2 diabetes mellitus without complication, without long-term current use of insulin ([facility]) PONV (postoperative nausea and vomiting) [...] arthritis of multiple sites without rheumatoid factor ([facility]) Rheumatoid arthritis Failed orthopedic implant, subsequent encounter- Primary Failed orthopedic implant, subsequent encounter documented in this encounter [facility] note* Diagnosis Pre-op examination- Primary Preoperative examination, [...] Rheumatoid arthritis Failed orthopedic implant, initial encounter ([facility]) History of pulmonary embolism Personal history of pulmonary embolism Preoperative examination- Primary Preoperative examination, unspecified Type 2 diabetes mellitus without complication, without long-term current use of insulin ([facility]) PONV (postoperative nausea and vomiting) [...] implant, subsequent encounter [facility] Diagnosis Chronic pain of right knee- Primary documented in this encounter [facility]* Diagnosis Osteoporosis, unspecified osteoporosis type, unspecified pathological fracture presence ([facility])- Primary documented in this encounter [facility]* Diagnosis Severe persistent asthma with (acute) exacerbation ([facility])- Primary documented in this encounter [facility]* Diagnosis Severe persistent asthma with (acute) exacerbation ([facility])- Primary 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 ([facility]) documented in this encounter [facility]* Diagnosis Pre-op examination- Primary Preoperative [...] Rheumatoid arthritis Failed orthopedic implant, initial encounter ([facility]) History of pulmonary embolism Personal history of pulmonary embolism Preoperative examination- Primary Preoperative examination, unspecified Type 2 diabetes mellitus without complication, without long-term current use of insulin ([facility]) PONV (postoperative nausea and vomiting) [...] Other postprocedural status documented in this encounter [facility] note* Diagnosis Pre-op examination- Primary Preoperative examination, [...] arthritis of multiple sites without rheumatoid factor ([facility]) Rheumatoid arthritis Failed orthopedic implant, initial encounter ([facility]) History of pulmonary embolism Personal history of pulmonary embolism Preoperative examination- Primary Preoperative examination, unspecified Type 2 diabetes mellitus without complication, without long-term current use of insulin ([facility]) PONV (postoperative nausea and vomiting) [...] skin, site unspecified documented in this encounter [facility] note* Diagnosis Pre-op examination- Primary Preoperative examination, [...] Rheumatoid arthritis Failed orthopedic implant, initial encounter ([facility]) History of pulmonary embolism Personal history of pulmonary embolism Preoperative examination- Primary Preoperative examination, unspecified Type 2 diabetes mellitus without complication, without long-term current use of insulin ([facility]) PONV (postoperative nausea and vomiting) [...] for pulmonary tuberculosis [facility] Diagnosis Pneumonia of left lower lobe due to Streptococcus pneumoniae (CMS/HCC)- Primary Recurrent sinus infections Unspecified sinusitis (chronic) Mild intermittent asthma without complication (CMS/HCC) Severe persistent asthma with (acute) exacerbation (CMS/HCC) [facility] Diagnosis Seasonal allergic rhinitis due to pollen documented in this encounter [facility]* Diagnosis Onset Date Resolution Status Admit Date Laceration of left knee acute M ay 2024 3:52pm Left knee injury acute October 3:52pm [facility] Work Phone: Evaluation note* Diagnosis Pre-op examination- [...] (HCC) Rheumatoid arthritis [facility]* Diagnosis Pre-op examination- Primary Preoperative examination, [...] vitamin D deficiency [facility] Diagnosis Pneumonia of left lower lobe due to Streptococcus pneumoniae- Primary Moderate persistent asthma with acute exacerbation (HCC) [facility] Diagnosis Pre-op examination- Primary Preoperative examination, [...] of high-risk medication documented in this encounter [facility] course Narrative No data available for this section [facility] No data available for this section [facility] No data available for this section [facility] Reason for referral (narrative)* Diagnostic Procedure Only (Routine) - Authorized Specialty Diagnoses / Procedures Referred By Contac t Referred To Contact XR IMAGING Diagnoses Left shoulder pain, unspecified chronicity Procedures XR SHOULDER GENERAL 3V OR MORE AP/TRUE AP/OTHER LEFT RADEX SHOULDER COMPLETE MINIMUM 2 VIEWS John Holly MD [address] [place] [address] [place] [address] Referral ID Status Reason Start Date Expiration Date Visits Requested Visits Authorized [id number] Authorized Auto-Generat ed Referral 10/09/2023 11/07/2024 1 1 [facility] for referral (narrative)* Diagnostic Procedure Only (Routine) - Closed Specialty Diagnoses / Procedures Referred By Contac t Referred To Contact XR IMAGING Diagnoses Left shoulder pain, unspecified chronicity Procedures XR SHOULDER GENERAL 3V OR MORE AP/TRUE AP/OTHER LEFT RADEX SHOULDER COMPLETE MINIMUM 2 VIEWS John Holly MD [address] [phone] Xr Imaging [facility] Referral ID Status Reason Start Date Expiration Date V isits Requested Visits Authorized [id number] Closed Auto-Generate d Referral 10/09/2023 11/07/2024 1 1 T [facility] for referral (narrative)* Outpatient Procedure (Routine) - Pending Review Specialty Diagnoses / Procedures Referred By Bernieac t Referred To [facility] Diagnoses Pre-op examination Procedures ECG COMPLETE ECG ROUTINE ECG W/LEAST 12 LDS W/I&R Louis Cates APRN.QUALITY ASSURANCE SUPERVISOR [address] [place] [address] [facility] [place] [address] [phone] Referral ID Status Reason Start Date Expiration Date Visits Requested Visits Authorized [id number] Pending Review Auto-Generat ed Referral 12/20/2023 12/19/2024 1 1 [facility] for referral (narrative)* Diagnostic Procedure Only (Routine) - Closed Specialty Diagnoses / Procedures Referred By Contac t Referred To Contact XR IMAGING Diagnoses S/P shoulder surgery Loose orthopedic implant, subsequent encounter Procedures XR SHOULDER GENERAL 3V OR MORE AP/TRUE AP/OTHER LEFT RADEX SHOULDER COMPLETE MINIMUM 2 VIEWS Steve Gambino PA [address] [phone] [place] [address] Referral ID Status Reason Start Date Expiration Date V isits Requested Visits Authorized [id number] Closed Auto-Generate d Referral 04/20/2024 05/20/2025 1 1 [facility] for referral (narrative)* Diagnostic Procedure Only (Routine) - Closed Specialty Diagnoses / Procedures Referred By Contac t Referred To Contact XR IMAGING Diagnoses S/P shoulder surgery Loose orthopedic implant, subsequent encounter Procedures XR SHOULDER GENERAL 3V OR MORE AP/TRUE AP/OTHER LEFT RADEX SHOULDER COMPLETE MINIMUM 2 VIEWS Steve Gambino PA [address] [phone] X[facility] Referral ID Status Reason Start Date Expiration Date V isits Requested Visits Authorized [id number] Closed Auto-Generate d Referral 04/20/2024 05/20/2025 1 1 [facility] for referral (narrative)* Diagnostic Procedure Only (Routine) - Authorized Specialty Diagnoses / Procedures Referred By Contac t Referred To Contact XR IMAGING Diagnoses S/P shoulder surgery Procedures XR SHOULDER GENERAL 3V OR MORE AP/TRUE AP/OTHER LEFT RADEX SHOULDER COMPLETE MINIMUM 2 VIEWS John Holly MD [address] [phone] [place] [address] Referral ID Status Reason Start Date Expiration Date Visits Requested Visits Authorized [id number] Authorized Auto-Generat ed Referral 06/12/2025 1 1 * Diagnostic Procedure Only (Routine) - New Request Specialty Diagnoses / Procedures Referred By Contac t Referred To Contact XR IMAGING Diagnoses S/P shoulder surgery Procedures XR SHOULDER GENERAL 3V OR MORE AP/TRUE AP/OTHER LEFT RADEX SHOULDER COMPLETE MINIMUM 2 VIEWS John Holly MD [address] [phone] X[facility] [place] [address] Referral ID Status Reason Start Date Expiration Date Visits Requested Visits Authorized [id number] New Request Auto-Generat ed Referral 06/12/2025 1 1 [facility] for referral (narrative)* Diagnostic Procedure Only (Routine) - Closed Specialty Diagnoses / Procedures Referred By Bernieac t Referred To Contact XR IMAGING Diagnoses S/P shoulder surgery Procedures XR SHOULDER GENERAL 3V OR MORE AP/TRUE AP/OTHER LEFT RADEX SHOULDER COMPLETE MINIMUM 2 VIEWS John Holly MD [address] [phone] X[facility] [place] [address] Referral ID Status Reason Start Date Expiration Date V isits Requested Visits Authorized [id number] Closed Auto-Generate d Referral 05/13/2024 06/12/2025 1 1 [facility] for referral (narrative)* Outpatient Procedure (Routine) - New Request Specialty Diagnoses / Procedures Referred By Brittany t Referred To Contact [facility] Diagnoses Failed orthopedic implant, subsequent encounter Procedures EMG(NEURO/NI) NERVE CONDUCTION STUDIES 9-10 STUDIES John Holly MD [address] [facility] [place] [address] [facility] [place] [address] [place], [place] [address] [address] Referral ID Status Reason Start Date Expiration Date Visits Requested Visits Authorized [id number] New Request Auto-Generat ed Referral 06/05/2024 06/05/2025 1 1 * Diagnostic Procedure Only (Routine) - Closed Specialty Diagnoses / Procedures Referred By Contac t Referred To Contact XR IMAGING Diagnoses Failed orthopedic implant, subsequent encounter Procedures XR SHOULDER GENERAL 3V OR MORE AP/TRUE AP/OTHER LEFT RADEX SHOULDER COMPLETE MINIMUM 2 VIEWS John Holly MD [address] [phone] [facility] [place] [address] Referral ID Status Reason Start Date Expiration Date V isits Requested Visits Authorized [id number] Closed Auto-Generate d Referral 06/05/2024 07/05/2025 1 1 [facility] for referral (narrative)* Diagnostic Procedure Only (Routine) - Closed Specialty Diagnoses / Procedures Referred By Brittany rahman Referred To Contact XR IMAGING Diagnoses Failed orthopedic implant, subsequent encounter Procedures XR SHOULDER GENERAL 3V OR MORE AP/TRUE AP/OTHER LEFT RADEX SHOULDER COMPLETE MINIMUM 2 VIEWS John Holly MD [address] [place] [address] X[facility] [place] [address] Referral ID Status Reason Start Date Expiration Date V isits Requested Visits Authorized [id number] Closed Auto-Generate d Referral 06/05/2024 07/05/2025 1 1 [facility] for referral (narrative)No reason for referral information [facility]The [facility] Work Phone: Reason for visit Narrative* Auth/Cert Specialty Diagnoses / Procedures Referred By Brittany rahman Referred To Contact Diagnoses 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, initial encounter 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, initial encounter [T84.092A] Procedures AL TOTAL KNEE ARTHROPLASTY ARTHROPLASTY KNEE TOTAL Puja Pendleton MD [address] [place] [address] Referral ID Status Reason Start Date Expiration Date Visits Re quested Visits Authorized [id number] 01/12/2022 1 1 [facility] Diagnostic Procedure Only (Routine) - Closed Specialty Diagnoses / Procedures Referred By Brittany rahman Referred To Contact XR IMAGING Diagnoses Failed orthopedic implant, subsequent encounter Procedures XR SHOULDER GENERAL 3V OR MORE AP/TRUE AP/OTHER LEFT RADEX SHOULDER COMPLETE MINIMUM 2 VIEWS John Holly MD [address] [place] [address] [place] [address] Referral ID Status Reason Start Date Expiration Date V isits Requested Visits Authorized [id number] Closed Auto-Generate d Referral 06/05/2024 07/05/2025 1 1 [facility] Discharge Instructions * Manuel Stoner CNP - [...] your surgery date, please call us at [phone] Preoperative Medication Instructions In preparation for surgery please continue all of your current medications with the following changes: Carolina Gutierrez Home Medication Instructions Prior to Surgery GUILLERMO:[id number] Printed on:05/13/17 1039 Medication Information Take last [...] medications that contain aspirin, such as [place]lee [place], Pepto- Bismol, Anacin), antiinflammatory medications such as Advil, Motrin, Ibuprofen, Naproxen, Aleve, [place]lee [place], Diclofenac, Voltaren, Daypro, Etodolac, Ketoprofen, Piroxicam, Relafen, Nabumetone, etc. 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 implant, initial encounter (HCC) Procedures REFER TO PACC - PRE ANESTHESIA CONSULTATION CLINIC OFFICE/OUTPATIENT NEW HIGH MDM 60 MINUTES John Holly MD [address] [place] [address] Referral ID Status Reason Start Date Expiration Date Visits Requested Visits Authorized [id number] Authorized PCP Requested Referral 11/04/2023 11/03/2024 1 1 Specialty Diagnoses / Procedures Referred By Contac t Referred To Contact CT IMAGING Diagnoses Status post reverse total replacement of left shoulder Procedures CT SHOULDER WO IVCON LEFT CT UPPER EXTREMITY W/O CONTRAST MATERIAL John Holly MD [address] [place] [address] [place] [address] Referral ID Status Reason Start Date Expiration Date Visits Requested Visits Authorized [id number] Authorized Auto-Generat ed Referral 10/14/2023 11/12/2024 1 1 Specialty Diagnoses / Procedures Referred By Contac t Referred To Contact Diagnoses Rheumatoid arthritis of multiple sites without rheumatoid factor (HCC) Stevo Neff MD [address] [place] [address] Referral ID Status Reason Start Date Expiration Date Visits Re quested Visits Authorized [id number] Closed 1 1 Specialty Diagnoses / Procedures Referred By Contac t Referred To Contact Diagnoses Hx of total knee arthroplasty, right Procedures XR KNEE RIGHT 3 VIEWS Medardo Vuong APRN-QUALITY ASSURANCE SUPERVISOR [address] [place] [address] Referral ID Status Reason Start Date Expiration Date V isits Requested Visits Authorized [id number] New Request 02/09/2022 03/06/2023 1 1 Specialty Diagnoses / Procedures Referred By Contac t Referred To Contact Physical Therapy Diagnoses Acute postoperative pain of right knee Medardo Vuong, MEAT TEAM MEMBER-QUALITY ASSURANCE SUPERVISOR [address] [place] [address] Referral ID Status Reason Start Date Expiration Date V isits Requested Visits Authorized [id number] New Request 01/23/2022 02/17/2023 1 1 Scheduling Instructions . Specialty Diagnoses / Procedures Referred By Contac t Referred To Contact Diagnoses Right knee pain, unspecified chronicity Procedures XR KNEE RIGHT 3 VIEWS XR KNEE RIGHT 4+ VIEWS Puja Pendleton MD [address] [place] [address] Referral ID Status Reason Start Date Expiration Date V isits Requested Visits Authorized [id number] New Request 01/11/2022 02/05/2023 1 1 Specialty Diagnoses / Procedures Referred By Contac t Referred To Contact Diagnoses Right knee pain, unspecified chronicity Procedures XR BONE LENGTH STUDY Puja Pendleton MD [address] [place] [address] Referral ID Status Reason Start Date Expiration Date V isits Requested Visits Authorized [id number] Pending Review 01/11/2022 02/05/2023 1 1 Chief [...] Carolina Gutierrez Admit Date: [id number] MR #: [id number] : 1960 The H&P has been reviewed [...] for elective/low risk surgery-LEFT FOOT HARDWARE REMOVAL [facility] OR 05/16/17 pending laboratory/results of cardiac [...] acceptable cardiac risk based on the 2014 [employer] (ACC/AHA) guideline on Perioperative Cardiovascular [...] Therapy and Prevention of Thrombosis, 9th ed: [employer] Evidence- Based Clinical Practice Guidelines. Chief Complaint Patient presents with Pre-operative Medical Risk Stratification History of Present Illness Carolina Gutierrez is a 56 y.o. female who presents for preoperative medical risk stratification consult at the request of Shante Delarosa DPM prior to LEFT FOOT HARDWARE REMOVAL [facility] OR 05/16/17. Pt had left foot surgery [...] ARTHRODESIS LEFT; Surgeon: Shante Delarosa DPM; Location: [facility] Main OR; Service: ARTHROPLASTY TOE Left 09/14/2016 Procedure: LEFT 5TH TOE ARTHROPLASTY ; Surgeon: Shante Delarosa DPM; Location: [facility] Main OR; Service: BUNIONECTOMY LAPIDUS Left 09/14/2016 Procedure: LEFT FOOT LAPIDUS ; Surgeon: Shante Delarosa DPM; Location: [facility] Main OR; Service: CHOLECYSTECTOMY HARDWARE REMOVAL FOOT Left 10/28/2015 Procedure: HARDWARE REMOVAL LEFT FOOT; Surgeon: Shante Delarosa DPM; Location: [facility] Main OR; Service: HYSTERECTOMY JOINT REPLACEMENT 2007, 2008 partial knee replacement bilat OSTEOTOMY Left 05/24/2015 Procedure: CHAMPAGNE CALCANEAL OSTEOTOMY LEFT; Surgeon: Shante Delarosa DPM; Location: [facility] Main OR; Service: OSTEOTOMY CALCANEUS POSTERIOR Left 09/14/2016 Procedure: LEFT FOOT CALCANEAL OSTEOTOMY; Surgeon: Shante Delarosa DPM; Location: [facility] Main OR; Service: REMOVAL HARDWARE Left 09/14/2016 Procedure: LEFT FOOT REMOVAL OF HARDWARE; Surgeon: Shante Delarosa DPM; Location: [facility] Main OR; Service: right foot achilles tendon lengethening 2012 TENDON REPAIR ACHILLES (OR LENGTHENING) Left 05/24/2015 Procedure: TENDON REPAIR ACHILLES (OR LENGTHENING) LEFT; Surgeon: Shante Delarosa DPM; Location: [facility] Main OR; Service: TENDON REPAIR TIBULUS POSTERIOR / RESECTION GASTRONEMIUS Left 05/24/2015 Procedure: POSTERIOR TIBIAL TENDON DEBRIDEMENT AND REPAIR LEFT; Surgeon: Shante Delarosa DPM; Location: [facility] Main OR; Service: Social History Substance [...] 15.5 inches Recent Results (from the past 34355 hours) XR CERVICAL SPINE AP/LAT 05/09/2015 (Final) [...] Degenerative disc disease at C5-6. Workstation ID: [id number] Electrocardiogram-tracing independently reviewed and interpreted-diffuse T-wave inversion clinically anterior possibly suggestive of ischemia.in this encounter Formatting of this note may be different from the original. Assessment and Plan 1. Preoperative testing Preoperative medical risk stratification indicates that the patient is at acceptable risk for elective/low risk surgery-LEFT FOOT HARDWARE REMOVAL [facility] OR 05/16/17 pending laboratory/results of cardiac [...] acceptable cardiac risk based on the 2014 [employer] (ACC/AHA) guideline on Perioperative Cardiovascular [...] Therapy and Prevention of Thrombosis, 9th ed: [employer] Evidence- Based Clinical Practice Guidelines. Chief Complaint Patient presents with Pre-operative Medical Risk Stratification History of Present Illness Carolina Gutierrez is a 56 y.o. female who presents for preoperative medical risk stratification consult at the request of Shante Delarosa DPM prior to LEFT FOOT HARDWARE REMOVAL [facility] OR 05/16/17. Pt had left foot surgery [...] 05/09/2015 No blood products 05/09/2015 Pulmonary embolism ([facility]) 05/09/2015 Sleep apnea, obstructive 05/09/2015 Past Surgical History: Procedure Laterality Date ARTHRODESIS SUBTALAR Left 05/24/2015 Procedure: NAVICULOCUNEIFORM ARTHRODESIS LEFT; Surgeon: Shante Delarosa DPM; Location: [facility] Main OR; Service: ARTHROPLASTY TOE Left 09/14/2016 Procedure: LEFT 5TH TOE ARTHROPLASTY ; Surgeon: Shante Delarosa DPM; Location: [facility] Main OR; Service: BUNIONECTOMY LAPIDUS Left 09/14/2016 Procedure: LEFT FOOT LAPIDUS ; Surgeon: Shante Delarosa DPM; Location: [facility] Main OR; Service: CHOLECYSTECTOMY HARDWARE REMOVAL FOOT Left 10/28/2015 Procedure: HARDWARE REMOVAL LEFT FOOT; Surgeon: Shante Delarosa DPM; Location: [facility] Main OR; Service: HYSTERECTOMY JOINT REPLACEMENT 2007, 2008 partial knee replacement bilat OSTEOTOMY Left 05/24/2015 Procedure: CHAMPAGNE CALCANEAL OSTEOTOMY LEFT; Surgeon: Shante Delarosa DPM; Location: [facility] Main OR; Service: OSTEOTOMY CALCANEUS POSTERIOR Left 09/14/2016 Procedure: LEFT FOOT CALCANEAL OSTEOTOMY; Surgeon: Shante Delarosa DPM; Location: [facility] Main OR; Service: REMOVAL HARDWARE Left 09/14/2016 Procedure: LEFT FOOT REMOVAL OF HARDWARE; Surgeon: Shante Delarosa DPM; Location: [facility] Main OR; Service: right foot achilles tendon nitin 2012 TENDON REPAIR ACHILLES (OR LENGTHENING) Left 05/24/2015 Procedure: TENDON REPAIR ACHILLES (OR LENGTHENING) LEFT; Surgeon: Shante Delarosa DPM; Location: [facility] Main OR; Service: TENDON REPAIR TIBULUS POSTERIOR / RESECTION GASTRONEMIUS Left 05/24/2015 Procedure: POSTERIOR TIBIAL TENDON DEBRIDEMENT AND REPAIR LEFT; Surgeon: Shante Delarosa DPM; Location: [facility] Main OR; Service: Social History Substance [...] 15.5 inches Recent Results (from the past 85191 hours) XR CERVICAL SPINE AP/LAT 05/09/2015 (Final) [...] Degenerative disc disease at C5-6. Workstation ID: [id number] Electrocardiogram-tracing independently reviewed and interpreted-diffuse T-wave inversion clinically anterior possibly suggestive of ischemia.in this encounter Brief Op Note - Shante Delarosa DPM - 05/16/2017 1:35 PM EST Miscellaneous Notes (unrecog nized section and content) Formatting of this note may be different from the original. Brief Post Operative Note Date of Service: 05/16/2017 Clinician: Shante Delarosa DPM OR Staff: Redrying Machine Operator: Latonia Mendez RN Relief Redrying Machine Operator: Karson Starkey RN Scrub Person: Claire Falcon RN Scrub Person Assist: Danya Weinstein RN Anesthesia Staff: Anesthesiologist: Larisa Javier DO CORE PLACER: Bita Baeza CRNA Surgeon(s):Surgeon(s) and Role: * Shante Delarosa DPM - Primary Pre-Operative Diagnoses: COMPLICATION OF HARDWARE Post-Operative Diagnoses: Post-Op Diagnosis Codes: * Complication internal fixation device such as nail, plate, or sabiha, sequela [T84.9XXS] Procedure(s) performed: Procedure(s): LEFT FOOT HARDWARE REMOVAL Specimen(s) removed: * No specimens in log * Operative findings: see op note Implants: Implant Name Type Inv. Item Serial No. Image Scientist Lot No. LRB No. Used Action plate YUEN MED Left 2 Explanted screws YUEN MED Left 7 Explanted Dressings: Soft dressing Estimated Blood Loss: Minimal Type of Anesthesia used: General Intra and Immediate Post-op Complications: none Shante Delarosa DPM 05/16/2017 1:35 PM CSN: [id number] this encounter Leelee Chester RN - 05/13/2017 9:58 AM EST Nursing Notes (unrecognized section and content) Our goal here at [facility] is to make your time with us as comprehensive and as pleasant for you as possible. In order for that to happen we would ask you to be aware of the following guidelines and information: ? You are to have nothing to eat or drink after midnight the night before your surgery no mints, no gum, no water, no food. ? [facility] will call you the day [...] which case you go directly to the [facility] located on the 4th Floor). [...] off at the front entrance while your reading professor baldwin the car. Someone must accompany you [...] Saturday 8 am - 3:30 pm at [phone]. in this encounter INFORMATION SOURCE (unrecogn ized section and content) DATE CREATED AUTHOR 12/24/2017 [facility]ital DATE CREATED AUTHOR AUTHOR'S ORGANIZ ATION 03/01/2021 [facility] DATE CREATED AUTHOR AUTHOR'S ORGANIZ ATION 09/14/2021 [facility] dical Specialist DATE CREATED AUTHOR AUTHOR'S ORGANIZ ATION 12/10/2022 [facility] pital DATE CREATED AUTHOR AUTHOR'S ORGANIZ ATION 02/25/2023 [facility] spital DATE CREATED AUTHOR AUTHOR'S ORGANIZ ATION 05/26/2023 [facility] DATE CREATED AUTHOR AUTHOR'S ORGANIZ ATION 09/28/2023 [facility] DATE CREATED AUTHOR AUTHOR'S ORGANIZ ATION 10/29/2023 [facility] DATE CREATED AUTHOR AUTHOR'S ORGANIZ ATION 12/30/2023 [facility] DATE CREATED AUTHOR AUTHOR'S ORGANIZ ATION 01/05/2024 [facility] DATE CREATED AUTHOR AUTHOR'S ORGANIZ ATION 01/06/2024 [facility] DATE CREATED AUTHOR AUTHOR'S ORGANIZ ATION 01/13/2024 [facility] DATE CREATED AUTHOR AUTHOR'S ORGANIZ ATION 01/14/2024 [facility] DATE CREATED AUTHOR AUTHOR'S ORGANIZ ATION 01/15/2024 [facility] DATE CREATED AUTHOR AUTHOR'S ORGANIZ ATION 01/16/2024 [facility] DATE CREATED AUTHOR AUTHOR'S ORGANIZ ATION 01/19/2024 [facility] DATE CREATED AUTHOR AUTHOR'S ORGANIZ ATION 01/23/2024 [facility] DATE CREATED AUTHOR AUTHOR'S ORGANIZ ATION 01/24/2024 [facility] DATE CREATED AUTHOR AUTHOR'S ORGANIZ ATION 01/25/2024 [facility] DATE CREATED AUTHOR AUTHOR'S ORGANIZ ATION 01/29/2024 [facility] DATE CREATED AUTHOR AUTHOR'S ORGANIZ ATION 02/09/2024 [facility] DATE CREATED AUTHOR AUTHOR'S ORGANIZ ATION 02/28/2024 [facility] DATE CREATED AUTHOR AUTHOR'S ORGANIZ ATION 04/09/2024 [facility] DATE CREATED AUTHOR AUTHOR'S ORGANIZ ATION 05/15/2024 [facility] DATE CREATED AUTHOR AUTHOR'S ORGANIZ ATION 05/25/2024 [facility] DATE CREATED AUTHOR AUTHOR'S ORGANIZ ATION 06/25/2024 [facility] DATE CREATED AUTHOR AUTHOR'S ORGANIZ ATION 06/26/2024 [facility] DATE CREATED AUTHOR AUTHOR'S ORGANIZ ATION 02/03/2025 [facility] dical [facility] DATE CREATED AUTHOR AUTHOR'S ORGANIZ ATION 02/15/2025 [facility] DATE CREATED AUTHOR AUTHOR'S ORGANIZ ATION 02/22/2025 [facility] DATE CREATED AUTHOR AUTHOR'S ORGANIZ ATION 02/23/2025 [facility] DATE CREATED AUTHOR AUTHOR'S ORGANIZ ATION 02/25/2025 [facility] DATE CREATED AUTHOR AUTHOR'S ORGANIZ ATION 03/15/2025 [facility] Comments (unrecognize d section and content) In the event this informatio n is protected by the Federal Confidentiality of Alcohol and Drug Abuse Patient Records regulations: The Federal rules restrict any use of the information to criminally investigate or prosecute any alcohol or drug abuse patient.[facility] the event this information is protected by the Federal Confidentiality of Alcohol and Drug Abuse Patient Records regulations: The Federal rules restrict any use of the information to criminally investigate or prosecute any alcohol or drug abuse patient.[facility]In the event this information is protected by the Federal Confidentiality of Alcohol and Drug Abuse Patient Records regulations: The Federal rules restrict any use of the information to criminally investigate or prosecute any alcohol or drug abuse patient.[facility]In the event this information is protected by the Federal Confidentiality of Alcohol and Drug Abuse Patient Records regulations: The Federal rules restrict any use of the information to criminally investigate or prosecute any alcohol or drug abuse patient.[facility]In the event this information is protected by the Federal Confidentiality of Alcohol and Drug Abuse Patient Records regulations: The Federal rules restrict any use of the information to criminally investigate or prosecute any alcohol or drug abuse patient.[facility]In the event this information is protected by the Federal Confidentiality of Alcohol and Drug Abuse Patient Records regulations: The Federal rules restrict any use of the information to criminally investigate or prosecute any alcohol or drug abuse patient.[facility]In the event this information is protected by the Federal Confidentiality of Alcohol and Drug Abuse Patient Records regulations: The Federal rules restrict any use of the information to criminally investigate or prosecute any alcohol or drug abuse patient.[facility]In the event this information is protected by the Federal Confidentiality of Alcohol and Drug Abuse Patient Records regulations: The Federal rules restrict any use of the information to criminally investigate or prosecute any alcohol or drug abuse patient.[facility]In the event this information is protected by the Federal Confidentiality of Alcohol and Drug Abuse Patient Records regulations: The Federal rules restrict any use of the information to criminally investigate or prosecute any alcohol or drug abuse patient.[facility]In the event this information is protected by the Federal Confidentiality of Alcohol and Drug Abuse Patient Records regulations: The Federal rules restrict any use of the information to criminally investigate or prosecute any alcohol or drug abuse patient.[facility]In the event this information is protected by the Federal Confidentiality of Alcohol and Drug Abuse Patient Records regulations: The Federal rules restrict any use of the information to criminally investigate or prosecute any alcohol or drug abuse patient.[facility]In the event this information is protected by the Federal Confidentiality of Alcohol and Drug Abuse Patient Records regulations: The Federal rules restrict any use of the information to criminally investigate or prosecute any alcohol or drug abuse patient.[facility]In the event this information is protected by the Federal Confidentiality of Alcohol and Drug Abuse Patient Records regulations: The Federal rules restrict any use of the information to criminally investigate or prosecute any alcohol or drug abuse patient.[facility]In the event this information is protected by the Federal Confidentiality of Alcohol and Drug Abuse Patient Records regulations: The Federal rules restrict any use of the information to criminally investigate or prosecute any alcohol or drug abuse patient.[facility]In the event this information is protected by the Federal Confidentiality of Alcohol and Drug Abuse Patient Records regulations: The Federal rules restrict any use of the information to criminally investigate or prosecute any alcohol or drug abuse patient.[facility]In the event this information is protected by the Federal Confidentiality of Alcohol and Drug Abuse Patient Records regulations: The Federal rules restrict any use of the information to criminally investigate or prosecute any alcohol or drug abuse patient.[facility]In the event this information is protected by the Federal Confidentiality of Alcohol and Drug Abuse Patient Records regulations: The Federal rules restrict any use of the information to criminally investigate or prosecute any alcohol or drug abuse patient.[facility] SpringfieldIn the event this information is protected by the Federal Confidentiality of Alcohol and Drug Abuse Patient Records regulations: The Federal rules restrict any use of the information to criminally investigate or prosecute any alcohol or drug abuse patient.[facility] SpringfieldIn the event this information is protected by the Federal Confidentiality of Alcohol and Drug Abuse Patient Records regulations: The Federal rules restrict any use of the information to criminally investigate or prosecute any alcohol or drug abuse patient.[facility] SpringfieldIn the event this information is protected by the Federal Confidentiality of Alcohol and Drug Abuse Patient Records regulations: The Federal rules restrict any use of the information to criminally investigate or prosecute any alcohol or drug abuse patient.[facility] SpringfieldIn the event this information is protected by the Federal Confidentiality of Alcohol and Drug Abuse Patient Records regulations: The Federal rules restrict any use of the information to criminally investigate or prosecute any alcohol or drug abuse patient.[facility] SpringfieldIn the event this information is protected by the Federal Confidentiality of Alcohol and Drug Abuse Patient Records regulations: The Federal rules restrict any use of the information to criminally investigate or prosecute any alcohol or drug abuse patient.[facility] SpringfieldIn the event this information is protected by the Federal Confidentiality of Alcohol and Drug Abuse Patient Records regulations: The Federal rules restrict any use of the information to criminally investigate or prosecute any alcohol or drug abuse patient.[facility]In the event this information is protected by the Federal Confidentiality of Alcohol and Drug Abuse Patient Records regulations: The Federal rules restrict any use of the information to criminally investigate or prosecute any alcohol or drug abuse patient.[facility]In the event this information is protected by the Federal Confidentiality of Alcohol and Drug Abuse Patient Records regulations: The Federal rules restrict any use of the information to criminally investigate or prosecute any alcohol or drug abuse patient.[facility] SpringfieldIn the event this information is protected by the Federal Confidentiality of Alcohol and Drug Abuse Patient Records regulations: The Federal rules restrict any use of the information to criminally investigate or prosecute any alcohol or drug abuse patient.[facility] SpringfieldIn the event this information is protected by the Federal Confidentiality of Alcohol and Drug Abuse Patient Records regulations: The Federal rules restrict any use of the information to criminally investigate or prosecute any alcohol or drug abuse patient.[facility] SpringfieldIn the event this information is protected by the Federal Confidentiality of Alcohol and Drug Abuse Patient Records regulations: The Federal rules restrict any use of the information to criminally investigate or prosecute any alcohol or drug abuse patient.[facility] SpringfieldIn the event this information is protected by the Federal Confidentiality of Alcohol and Drug Abuse Patient Records regulations: The Federal rules restrict any use of the information to criminally investigate or prosecute any alcohol or drug abuse patient.[facility] SpringfieldIn the event this information is protected by the Federal Confidentiality of Alcohol and Drug Abuse Patient Records regulations: The Federal rules restrict any use of the information to criminally investigate or prosecute any alcohol or drug abuse patient.[facility] SpringfieldIn the event this information is protected by the Federal Confidentiality of Alcohol and Drug Abuse Patient Records regulations: The Federal rules restrict any use of the information to criminally investigate or prosecute any alcohol or drug abuse patient.[facility] SpringfieldIn the event this information is protected by the Federal Confidentiality of Alcohol and Drug Abuse Patient Records regulations: The Federal rules restrict any use of the information to criminally investigate or prosecute any alcohol or drug abuse patient.[facility] SpringfieldIn the event this information is protected by the Federal Confidentiality of Alcohol and Drug Abuse Patient Records regulations: The Federal rules restrict any use of the information to criminally investigate or prosecute any alcohol or drug abuse patient.[facility] SpringfieldIn the event this information is protected by the Federal Confidentiality of Alcohol and Drug Abuse Patient Records regulations: The Federal rules restrict any use of the information to criminally investigate or prosecute any alcohol or drug abuse patient.[facility] SpringfieldIn the event this information is protected by the Federal Confidentiality of Alcohol and Drug Abuse Patient Records regulations: The Federal rules restrict any use of the information to criminally investigate or prosecute any alcohol or drug abuse patient.[facility] SpringfieldIn the event this information is protected by the Federal Confidentiality of Alcohol and Drug Abuse Patient Records regulations: The Federal rules restrict any use of the information to criminally investigate or prosecute any alcohol or drug abuse patient.[facility] SpringfieldIn the event this information is protected by the Federal Confidentiality of Alcohol and Drug Abuse Patient Records regulations: The Federal rules restrict any use of the information to criminally investigate or prosecute any alcohol or drug abuse patient.[facility] SpringfieldIn the event this information is protected by the Federal Confidentiality of Alcohol and Drug Abuse Patient Records regulations: The Federal rules restrict any use of the information to criminally investigate or prosecute any alcohol or drug abuse patient.[facility] SpringfieldIn the event this information is protected by the Federal Confidentiality of Alcohol and Drug Abuse Patient Records regulations: The Federal rules restrict any use of the information to criminally investigate or prosecute any alcohol or drug abuse patient.[facility] SpringfieldIn the event this information is protected by the Federal Confidentiality of Alcohol and Drug Abuse Patient Records regulations: The Federal rules restrict any use of the information to criminally investigate or prosecute any alcohol or drug abuse patient.[facility] SpringfieldIn the event this information is protected by the Federal Confidentiality of Alcohol and Drug Abuse Patient Records regulations: The Federal rules restrict any use of the information to criminally investigate or prosecute any alcohol or drug abuse patient.[facility] SpringfieldIn the event this information is protected by the Federal Confidentiality of Alcohol and Drug Abuse Patient Records regulations: The Federal rules restrict any use of the information to criminally investigate or prosecute any alcohol or drug abuse patient.[facility] SpringfieldIn the event this information is protected by the Federal Confidentiality of Alcohol and Drug Abuse Patient Records regulations: The Federal rules restrict any use of the information to criminally investigate or prosecute any alcohol or drug abuse patient.[facility] SpringfieldIn the event this information is protected by the Federal Confidentiality of Alcohol and Drug Abuse Patient Records regulations: The Federal rules restrict any use of the information to criminally investigate or prosecute any alcohol or drug abuse patient.[facility] SpringfieldIn the event this information is protected by the Federal Confidentiality of Alcohol and Drug Abuse Patient Records regulations: The Federal rules restrict any use of the information to criminally investigate or prosecute any alcohol or drug abuse patient.[facility] SpringfieldIn the event this information is protected by the Federal Confidentiality of Alcohol and Drug Abuse Patient Records regulations: The Federal rules restrict any use of the information to criminally investigate or prosecute any alcohol or drug abuse patient.[facility] SpringfieldIn the event this information is protected by the Federal Confidentiality of Alcohol and Drug Abuse Patient Records regulations: The Federal rules restrict any use of the information to criminally investigate or prosecute any alcohol or drug abuse patient.[facility] SpringfieldIn the event this information is protected by the Federal Confidentiality of Alcohol and Drug Abuse Patient Records regulations: The Federal rules restrict any use of the information to criminally investigate or prosecute any alcohol or drug abuse patient.[facility] SpringfieldIn the event this information is protected by the Federal Confidentiality of Alcohol and Drug Abuse Patient Records regulations: The Federal rules restrict any use of the information to criminally investigate or prosecute any alcohol or drug abuse patient.[facility]In the event this information is protected by the Federal Confidentiality of Alcohol and Drug Abuse Patient Records regulations: The Federal rules restrict any use of the information to criminally investigate or prosecute any alcohol or drug abuse patient.[facility] SpringfieldIn the event this information is protected by the Federal Confidentiality of Alcohol and Drug Abuse Patient Records regulations: The Federal rules restrict any use of the information to criminally investigate or prosecute any alcohol or drug abuse patient.[facility] the event this information is protected by the Federal Confidentiality of Alcohol and Drug Abuse Patient Records regulations: The Federal rules restrict any use of the information to criminally investigate or prosecute any alcohol or drug abuse patient.[facility] SpringfieldIn the event this information is protected by the Federal Confidentiality of Alcohol and Drug Abuse Patient Records regulations: The Federal rules restrict any use of the information to criminally investigate or prosecute any alcohol or drug abuse patient.[facility] SpringfieldIn the event this information is protected by the Federal Confidentiality of Alcohol and Drug Abuse Patient Records regulations: The Federal rules restrict any use of the information to criminally investigate or prosecute any alcohol or drug abuse patient.[facility] SpringfieldIn the event this information is protected by the Federal Confidentiality of Alcohol and Drug Abuse Patient Records regulations: The Federal rules restrict any use of the information to criminally investigate or prosecute any alcohol or drug abuse patient.[facility] SpringfieldIn the event this information is protected by the Federal Confidentiality of Alcohol and Drug Abuse Patient Records regulations: The Federal rules restrict any use of the information to criminally investigate or prosecute any alcohol or drug abuse patient.[facility] SpringfieldIn the event this information is protected by the Federal Confidentiality of Alcohol and Drug Abuse Patient Records regulations: The Federal rules restrict any use of the information to criminally investigate or prosecute any alcohol or drug abuse patient.[facility]In the event this information is protected by the Federal Confidentiality of Alcohol and Drug Abuse Patient Records regulations: The Federal rules restrict any use of the information to criminally investigate or prosecute any alcohol or drug abuse patient.[facility] SpringfieldIn the event this information is protected by the Federal Confidentiality of Alcohol and Drug Abuse Patient Records regulations: The Federal rules restrict any use of the information to criminally investigate or prosecute any alcohol or drug abuse patient.[facility] SpringfieldIn the event this information is protected by the Federal Confidentiality of Alcohol and Drug Abuse Patient Records regulations: The Federal rules restrict any use of the information to criminally investigate or prosecute any alcohol or drug abuse patient.[facility]In the event this information is protected by the Federal Confidentiality of Alcohol and Drug Abuse Patient Records regulations: The Federal rules restrict any use of the information to criminally investigate or prosecute any alcohol or drug abuse patient.[facility] SpringfieldIn the event this information is protected by the Federal Confidentiality of Alcohol and Drug Abuse Patient Records regulations: The Federal rules restrict any use of the information to criminally investigate or prosecute any alcohol or drug abuse patient.[facility] SpringfieldIn the event this information is protected by the Federal Confidentiality of Alcohol and Drug Abuse Patient Records regulations: The Federal rules restrict any use of the information to criminally investigate or prosecute any alcohol or drug abuse patient.[facility] SpringfieldIn the event this information is protected by the Federal Confidentiality of Alcohol and Drug Abuse Patient Records regulations: The Federal rules restrict any use of the information to criminally investigate or prosecute any alcohol or drug abuse patient.[facility] SpringfieldIn the event this information is protected by the Federal Confidentiality of Alcohol and Drug Abuse Patient Records regulations: The Federal rules restrict any use of the information to criminally investigate or prosecute any alcohol or drug abuse patient.[facility] SpringfieldIn the event this information is protected by the Federal Confidentiality of Alcohol and Drug Abuse Patient Records regulations: The Federal rules restrict any use of the information to criminally investigate or prosecute any alcohol or drug abuse patient.[facility] SpringfieldIn the event this information is protected by the Federal Confidentiality of Alcohol and Drug Abuse Patient Records regulations: The Federal rules restrict any use of the information to criminally investigate or prosecute any alcohol or drug abuse patient.[facility] Reason for Visit (unrecogniz ed section and content) Reason Onset Date Comments Patient Question 11/24/2015 Results 11/24/2015 Reason Comments Pain Specialty Diagnoses / Procedures Referred By Brittany t Referred To Contact Diagnoses Hx of total knee arthroplasty, right Procedures XR KNEE RIGHT 3 VIEWS Medardo Vuong, MEAT TEAM MEMBER-QUALITY ASSURANCE SUPERVISOR [address] [place] [address] Referral ID Status Reason Start Date Expiration Date V is[employer] Requested Visits Authorized [id number] New Request 02/09/2022 03/06/2023 1 1 Reason Comments Post Op Visit Reason Comments Refill Request Reason Comments Results Reason Comments Follow-up Reason Comments Medication Authorization [facility] Insurance Authorization Prior Auth Delay ed: Patient has an authorization for Prolia on file with an outside facility and provider Reason Comments 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 [employer] Medication Authorization Referral ID Status Reason Start Date Expiration Date V [employer] Requested Visits Authorized [id number] New Request 02/12/2023 03/08/2024 1 1 Reason [...] COMPLETE MINIMUM 2 VIEWS John Holly MD [address] [place] [id number] [place] [address] Referral ID Status Reason Start Date Expiration Date V isits Requested Visits Authorized [id number] Closed Auto-Generate d Referral 10/09/2023 11/07/2024 1 1 Reason Comments Pain 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 Reason Comments Results DEXA scan [...] MINIMUM 2 VIEWS Steve Gambino PA [address] [place] [address] X[facility] [place] [address] Referral ID Status Reason Start Date Expiration Date V isits Requested Visits Authorized [id number] Closed Auto-Generate d Referral 04/20/2024 05/20/2025 1 [...] COMPLETE MINIMUM 2 VIEWS John Holly MD [address] [place] [id number] Xr Imaging [facility] Referral ID Status Reason Start Date Expiration Date V isits Requested Visits Authorized [id number] Closed Auto-Generate d Referral 05/13/2024 06/12/2025 1 [...] EXTREMITY W/O CONTRAST MATERIAL John Holly MD [address] [place] [address] Ct [facility] [place] [address] Referral ID Status Reason Start Date Expiration Date V isits Requested Visits Authorized [id number] Closed Auto-Generate d Referral 05/18/2024 06/17/2025 1 1 Reason Comments Post Op Reason Comments Pain Reason Comments Patient Education Reason Onset Date Comments surgery 04/01/2023 Reason Comments Follow-up No surgeries; [facility] stay. December 2023 for pneumonia, colitis, [...] Procedures OFFICE/OUTPATIENT NEW HIGH MDM 60 MINUTES [id number] (SNOMED CT) - AMB REFERRAL TO ONCOLOGY Kellie Watson MD [address] [place] [address] Tianna Dunham MD [address] [facility] [address] Referral ID Status Reason Start Date Expiration Date V isits Requested Visits Authorized [id number] Pending Review 05/11/2024 11/07/2024 1 1 Reason Onset Date Comments Refill Request 08/13/2024 Reason Comments Follow-up No surgeries; no hos pital stays. Pt had pneumonia and flu this year so far. Reason Comments Med Refill Reason Comments Follow-up No surgeries; no hos pital stays. Reason Comments Follow Up No questions or conc erns. Care Teams (unrecognized sec tion and content) Optical Manager Relationship Specialty Start Date End Date Aline Guerrero MD [address], [place] [id number] PCP - General Family Medicine 01/11/22 Optical Manager Relationship Specialty Start Date End Date Aline Guerrero MD [address], [place] [id number] PCP - General Family Medicine 01/11/22 Optical Manager Relationship Specialty Start Date End Date Aline Guerrero MD [address] [place] [address] PCP - General Family Medicine 01/11/22 Optical Manager Relationship Specialty Start Date End Date Aline Guerrero MD [address] [place] [id number] PCP - General Family Medicine 01/11/22 Team Status: Inactive Member Role Status Dates Aline Guerrero MD Primary Care Provider Active Consuelo Rosales APRN Attending Provider Active Team Status: Active Member Role Status Dates Aline Guerrero MD Primary Care Provider Active Team Status: Inactive Member Role Status Dates Aline Guerrero MD Primary Care Provider Active RADHA Bowers Attending Provider Active Optical Manager Relationship Specialty Start Date End Date Aline Guerrero MD [address] [place] [id number] PCP - General 10/11/00 Optical Manager Relationship Specialty Start Date End Date Aline Guerrero MD [address] [place] [id number] PCP - General 10/11/00 Optical Manager Relationship Specialty Start Date End Date Aline Guerrero MD [address] [place] [id number] PCP - General Family Medicine 01/11/22 Optical Manager Relationship Specialty Start Date End Date Aline Guerrero MD [address] [place] [address] PCP - General 10/11/00 Optical Manager Relationship Specialty Start Date End Date Aline Guerrero MD [address] [place] [address] PCP - General 10/11/00 Optical Manager Relationship Specialty Start Date End Date Aline Guerrero MD [address] [place] [address] PCP - General Family Medicine 01/11/22 Optical Manager Relationship Specialty Start Date End Date Aline Guerrero MD [address] [place] [address] PCP - General Family Medicine 01/11/22 Optical Manager Relationship Specialty Start Date End Date Aline Guerrero MD [address] [place] [address] PCP - General 10/11/00 Optical Manager Relationship Specialty Start Date End Date Aline Guerrero MD [address] [place] [address] PCP - General 10/11/00 Optical Manager Relationship Specialty Start Date End Date Silvestre Benavides MD [address] [place] [address] PCP - General Family Medicine 03/05/23 Team [...] July 24, 2023 End: July 24, 2023 Optical Manager Relationship Specialty Start Date End Date Aline Guerrero MD [address] [place] [address] PCP - General 10/11/00 Optical Manager Relationship Specialty Start Date End Date Aline Guerrero MD [address] [place], [facility] PCP - General 10/11/00 Optical Manager Relationship Specialty Start Date End Date Aline Guerrero MD [address] [place] [address] PCP - General 10/11/00 Louis Cortez DO [address] [place] [id number] Orthopedics 10/02/23 Optical Manager Relationship Specialty Start Date End Date Aline Guerrero MD [address] [place] [address] PCP - General 10/11/00 Louis Cortez DO [address] [place] [address] Orthopedics 10/02/23 Optical Manager Relationship Specialty Start Date End Date Aline Guerrero MD [address] [place] [address] PCP - General 10/11/00 Louis Cortez DO [address] [place] [address] Orthopedics 10/02/23 Optical Manager Relationship Specialty Start Date End Date Aline Guerrero MD [address] [place] [address] PCP - General 10/11/00 Louis Cortez DO [address] [place] [address] Orthopedics 10/02/23 Optical Manager Relationship Specialty Start Date End Date Aline Guerrero MD [address] [place] [address] PCP - General 10/11/00 Louis Cortez DO [address] [place] [address] Orthopedics 10/02/23 Optical Manager Relationship Specialty Start Date End Date Aline Guerrero MD [address] [place] [address] PCP - General 10/11/00 Louis Cortez DO [address] [place] [address] Orthopedics 10/02/23 Optical Manager Relationship Specialty Start Date End Date Aline Guerrero MD [address] [place] [address] PCP - General 10/11/00 Louis Cortez DO [address] [place] [address] Orthopedics 10/02/23 Team Status: Active Member Role Status Dates Berry Beth NP-Demetrio Primary Care Provider Active Team Status: Inactive Member Role Status Dates Naty Luke APRN Attending Provider Active Start: November 07, 2023 End: November 07, 2023 Berry Beth , DELINQUENT TAX COLLECTION ASSISTANT-C Primary Care Provider Active Start: November 07, 2023 End: November 07, 2023 Optical Manager Relationship Specialty Start Date End Date Aline Guerrero MD [address] [place] [address] PCP - General 10/11/00 Louis Cortez DO [address] [place] [address] Orthopedics 10/02/23 Optical Manager Relationship Specialty Start Date End Date Aline Guerrero MD [address] [place] [address] PCP - General 10/11/00 Louis Cortez DO [address] [place] [address] Orthopedics 10/02/23 Optical Manager Relationship Specialty Start Date End Date Berry Beth APRN.QUALITY ASSURANCE SUPERVISOR [address] [place] [address] PCP - General 12/23/23 Louis Cortez DO [address] [place] [address] Orthopedics 10/02/23 Optical Manager Relationship Specialty Start Date End Date Berry Beth MEAT TEAM MEMBER.QUALITY ASSURANCE SUPERVISOR [address] [place] [address] PCP - General 12/23/23 Louis Cortez, [address] [place] [address] Orthopedics 10/02/23 Optical Manager Relationship Specialty Start Date End Date Berry Beth MEAT TEAM MEMBER.QUALITY ASSURANCE SUPERVISOR [address] [place] [address] PCP - General 12/23/23 Louis Cortez, [address] [place] [id number] Orthopedics 10/02/23 Optical Manager Relationship Specialty Start Date End Date Berry Beth, MEAT TEAM MEMBER.QUALITY ASSURANCE SUPERVISOR [address] [place] [address] PCP - General 12/23/23 Louis Cortez, [address] [place] [address] Orthopedics 10/02/23 Optical Manager Relationship Specialty Start Date End Date Berry Beth, MEAT TEAM MEMBER.QUALITY ASSURANCE SUPERVISOR [address] [place] [address] [id number] PCP - General 12/23/23 Louis Cortez, [address] [place] [address] Orthopedics 10/02/23 Optical Manager Relationship Specialty Start Date End Date Berry Beth, MEAT TEAM MEMBER.QUALITY ASSURANCE SUPERVISOR [address] [place] [address] PCP - General 12/23/23 Louis Cortez, [address] [place] [address] Orthopedics 10/02/23 Optical Manager Relationship Specialty Start Date End Date Berry Beth, MEAT TEAM MEMBER.QUALITY ASSURANCE SUPERVISOR [address] [place] [address] PCP - General 12/23/23 Louis Cortez, [address] [place] [address] Orthopedics 10/02/23 Optical Manager Relationship Specialty Start Date End Date Berry Beth, MEAT TEAM MEMBER.QUALITY ASSURANCE SUPERVISOR [address] [place] [address] PCP - General 12/23/23 Louis Cortez, [address] [place] [address] Orthopedics 10/02/23 Optical Manager Relationship Specialty Start Date End Date Berry Beth, MEAT TEAM MEMBER.QUALITY ASSURANCE SUPERVISOR [address] [place] [address] PCP - General 12/23/23 Louis Cortez, DO [address] [place] [address] Orthopedics 10/02/23 Optical Manager Relationship Specialty Start Date End Date Berry Beth, MEAT TEAM MEMBER.QUALITY ASSURANCE SUPERVISOR [address] [place] [address] PCP - General 12/23/23 Louis Cortez DO [address] [place] [address] Orthopedics 10/02/23 Optical Manager Relationship Specialty Start Date End Date Berry Beth, MEAT TEAM MEMBER.QUALITY ASSURANCE SUPERVISOR [address] [place] [address] PCP - General 12/23/23 Louis Cortez DO [address] [place] [address] Orthopedics 10/02/23 Optical Manager Relationship Specialty Start Date End Date Berry Beth, MEAT TEAM MEMBER.QUALITY ASSURANCE SUPERVISOR [address] [place] [address] PCP - General 12/23/23 Louis Cortez DO [address] [place] [address] Orthopedics 10/02/23 Optical Manager Relationship Specialty Start Date End Date Berry Beth, MEAT TEAM MEMBER.QUALITY ASSURANCE SUPERVISOR [address] [place] [address] PCP - General 12/23/23 Louis Cortez DO [address] [place] [address] Orthopedics 10/02/23 Optical Manager Relationship Specialty Start Date End Date Berry Beth, MEAT TEAM MEMBER.QUALITY ASSURANCE SUPERVISOR [address] [place] [address] PCP - General 12/23/23 Louis Cortez DO [address] [place] [address] Orthopedics 10/02/23 Optical Manager Relationship Specialty Start Date End Date Berry Beth, MEAT TEAM MEMBER.QUALITY ASSURANCE SUPERVISOR [address] [place] [address] [id number] PCP - General 12/23/23 Louis Cortez DO [address] [place] [id number] Orthopedics 10/02/23 Optical Manager Relationship Specialty Start Date End Date Berry Beth MD [address] [place], [place] [phone] Referring Physician Family Medicine 03/13/24 Optical Manager Relationship Specialty Start Date End Date Berry Beth MD [address] [place] [address] Referring Physician Family Medicine 03/13/24 Optical Manager Relationship Specialty Start Date End Date Berry Beth, MEAT TEAM MEMBER.QUALITY ASSURANCE SUPERVISOR [address] [place], [place] [id number] PCP - General 12/23/23 Louis Cortez DO [address] [place] [address] Orthopedics 10/02/23 Optical Manager Relationship Specialty Start Date End Date Berry Beth, MEAT TEAM MEMBER.QUALITY ASSURANCE SUPERVISOR [address] [place] [address] [phone] PCP - General 12/23/23 Louis Cortez, DO [address] [place] [address] Orthopedics 10/02/23 Optical Manager Relationship Specialty Start Date End Date Berry Beth, MEAT TEAM MEMBER.QUALITY ASSURANCE SUPERVISOR [address] [place] [address] [phone] PCP - General 12/23/23 Louis Cortez DO [address] [place] [address] Orthopedics 10/02/23 Kellie Watson MD [address] [place] [address] Referring Dermatology 05/14/24 Optical Manager Relationship Specialty Start Date End Date Berry Beth, MEAT TEAM MEMBER.QUALITY ASSURANCE SUPERVISOR [address] [place] [address] PCP - General 12/23/23 Louis Cortez DO [address] [place] [address] Orthopedics 10/02/23 Kellie Watson MD [address] [place] [address] Referring Dermatology 05/14/24 Optical Manager Relationship Specialty Start Date End Date Berry Beth MD [address] [place] [address] Referring Physician Family Medicine 03/13/24 Optical Manager Relationship Specialty Start Date End Date Berry Beth MD [address] [place] [address] Referring Physician Family Medicine 03/13/24 Optical Manager Relationship Specialty Start Date End Date Berry Beth, MEAT TEAM MEMBER.QUALITY ASSURANCE SUPERVISOR [address] [place] [address] PCP - General 12/23/23 Louis Cortez DO [address] [place] [address] Orthopedics 10/02/23 Kellie Watson MD [address] [place] [address] Referring Dermatology 05/14/24 Optical Manager Relationship Specialty Start Date End Date Berry Bteh MD [address] [place] [address] Referring Physician Family Medicine 03/13/24 Optical Manager Relationship Specialty Start Date End Date Berry Beth, MEAT TEAM MEMBER.QUALITY ASSURANCE SUPERVISOR [address] [place] [address] PCP - General 12/23/23 Louis Cortez DO [address] [place] [address] Orthopedics 10/02/23 Kellie Watson MD [address] [facility] [address] [place] [address] Referring Dermatology 05/14/24 Optical Manager Relationship Specialty Start Date End Date Berry Beth, MEAT TEAM MEMBER.QUALITY ASSURANCE SUPERVISOR [address] [place] [address] PCP - General 12/23/23 Louis Cortez, DO [address] [place] [address] Orthopedics 10/02/23 Kellie Watson MD [address] [place] [address] Referring Dermatology 05/14/24 Optical Manager Relationship Specialty Start Date End Date Berry Beth, MEAT TEAM MEMBER.QUALITY ASSURANCE SUPERVISOR [address] [place] [address] PCP - General 12/23/23 Louis Cortez DO [address] [place] [address] Orthopedics 10/02/23 Kellie Watson MD [address] [place] [address] Referring Dermatology 05/14/24 Optical Manager Relationship Specialty Start Date End Date Berry Beth, MEAT TEAM MEMBER.QUALITY ASSURANCE SUPERVISOR [address] [place] [address] PCP - General 12/23/23 Louis Cortez DO [address] [place] [address] Orthopedics 10/02/23 Kellie Watson MD [address] [place] [address] Referring Dermatology 05/14/24 Optical Manager Relationship Specialty Start Date End Date Kirit, Berry L, MEAT TEAM MEMBER.QUALITY ASSURANCE SUPERVISOR [address] [place] [address] PCP - General 12/23/23 Louis Cortez DO [address] [place] [address] Orthopedics 10/02/23 Kellie aWtson MD [address] [facility] [address] [place] [address] Referring Dermatology 05/14/24 Optical Manager Relationship Specialty Start Date End Date Berry Beth MD [address] [place] [address] Referring Physician Family Medicine 03/13/24 Optical Manager Relationship Specialty Start Date End Date Berry Beth, MEAT TEAM MEMBER.QUALITY ASSURANCE SUPERVISOR [address] [place] [address] PCP - General 12/23/23 Louis Cortez DO [address] [place] [address] Orthopedics 10/02/23 Kellie Watson MD [address] [address] Referring Dermatology 05/14/24 Optical Manager Relationship Specialty Start Date End Date Santino Moran MD [address] [place] [address] PCP - General Family Medicine 06/15/24 Louis Cortez DO [address] [place] [address] Orthopedics 10/02/23 Kellie Watson MD [address] [place] [address] Referring Dermatology 05/14/24 Optical Manager Relationship Specialty Start Date End Date Santino Moran MD [address] [place] [address] PCP - General Family Medicine 06/15/24 Louis Cortez DO [address] [place] [address] Orthopedics 10/02/23 Kellie Watson MD [address] [facility] [address] [place] [address] Referring Dermatology 05/14/24 Optical Manager Relationship Specialty Start Date End Date Silvestre Benavides MD PCP - General Family Medicine 03/05/23 03/12/24 Berry Beth MD [address] [place] [address] Referring Physician Family Medicine 03/13/24 Optical Manager Relationship Specialty Start Date End Date Silvestre Benavides MD PCP - General Family Medicine 03/05/23 Optical Manager Relationship Specialty Start Date End Date Silvestre Benavides MD PCP - General Family Medicine 03/05/23 Optical Manager Relationship Specialty Start Date End Date Silvestre Benavides MD PCP - General Family Medicine 03/05/23 03/12/24 Berry Beth MD [address] [place] [address] [phone] Referring Physician Family Medicine 03/13/24 Optical Manager Relationship Specialty Start Date End Date Berry Beth MD [address] [place], [place] [phone] Referring Physician Family Medicine 03/13/24 Optical Manager Relationship Specialty Start Date End Date Santino Moran MD [address] [place] [address] PCP - General Family Medicine 06/15/24 Louis Cortez DO [address] [place] [phone] Orthopedics 10/02/23 Kellie Watson MD [address] [place] [address] Referring Dermatology 05/14/24 Optical Manager Relationship Specialty Start Date End Date Santino Moran MD [address] [place] [address] PCP - General Family Medicine 06/15/24 Louis Cortez DO [address] [place] [address] Orthopedics 10/02/23 Kellie Watson MD [address] [place] [address] Referring Dermatology 05/14/24 Optical Manager Relationship Specialty Start Date End Date Santino Moran MD [address] [place] [address] PCP - General Family Medicine 06/15/24 Louis Cortez DO [address] [place] [address] Orthopedics 10/02/23 Kellie Watson MD [address] [place] [address] Referring Dermatology 05/14/24 Optical Manager Relationship Specialty Start Date End Date Santino Moran MD [address] [place] [address] PCP - General Family Medicine 06/15/24 Louis Cortez DO [address] [place] [address] Orthopedics 10/02/23 Kellie Watson MD [address] [place] [address] Referring Dermatology 05/14/24 Optical Manager Relationship Specialty Start Date End Date Santino Moran MD [address] [place] [address] PCP - General Family Medicine 06/15/24 Louis Cortez DO [address] [place] [address] Orthopedics 10/02/23 Kellie Watson MD [address] [place] [address] Referring Dermatology 05/14/24 Optical Manager Relationship Specialty Start Date End Date Santino Moran MD [address] [place] [address] PCP - General Family Medicine 06/15/24 Louis Cortez DO [address] [place] [address] Orthopedics 10/02/23 Kellie Watson MD [address] [place] [address] Referring Dermatology 05/14/24 Optical Manager Relationship Specialty Start Date End Date Santino Moran MD [address] [place] [address] PCP - General Family Medicine 06/15/24 Louis Cortez DO [address] [place] [address] Orthopedics 10/02/23 Kellie Watson MD [address] [place] [address] Referring Dermatology 05/14/24 Optical Manager Relationship Specialty Start Date End Date Berry Beth MD [address] [place], [place] [id number] Referring Physician Family Medicine 03/13/24 Optical Manager Relationship Specialty Start Date End Date Berry Beth MD [address] [place] [address] Referring Physician Family Medicine 03/13/24 Team Status: Inactive Member Role Status Dates eZ Francois MD Attending Provider Active Start: September 16, 2024 End: September 16, 2024 Team Status: Inactive Member Role Status Dates eZ Francois MD Attending Provider Active Start: October 28, 2024 End: October 28, 2024 Optical Manager Relationship Specialty Start Date End Date Berry Beth MD [address] [place] [address] Referring Physician Family Medicine 03/13/24 Team Status: [...] December 08, 2024 End: December 08, 2024 Optical Manager Relationship Specialty Start Date End Date Santino Moran MD [facility] [place] [address] PCP - General Family Medicine 06/15/24 Louis Cortez DO [address] [place] [id number] Orthopedics 10/02/23 Kellie Watson MD [address] [place] [address] Referring Dermatology 05/14/24 Team Status: Inactive Member Role Status Dates Santino Moran MD Primary Care Provider Active Start: December 20, 2024 End: December 20, 2024 AYDEN Luna RN DELINQUENT TAX COLLECTION ASSISTANT-C Attending Provider Active Start: December 20 End: December 20, 2024 Team Status: Inactive Member Role Status Dates Ze Francois MD Attending Provider Active Start: December 23, 2024 End: December 23, 2024 Optical Manager Relationship Specialty Start Date End Date Berry Beth NP [address] [place] [address] Referring Physician Family Medicine 03/13/24 Optical Manager Relationship Specialty Start Date End Date Berry Beth NP [address] [place] [address] Referring Physician Family Medicine 03/13/24 Team Status: Active Member Role Status Dates PHYSICIAN NO FAMILY Primary Care Provider Active Team Status: Inactive Member Role Status Dates Ze Francois MD Attending Provider Active Start: February 11, 2025 End: February 11, 2025 PHYSICIAN NO FAMILY Primary Care Provider Active Start: February 11, 2025 End: February 11, 2025 Optical Manager Relationship Specialty Start Date End Date Santino Moran MD [address] [place] [address] PCP - General Family Medicine 06/15/24 Louis Cortez DO [address] [place] [id number] Orthopedics 10/02/23 Kellie Watson MD [address] [place] [address] Referring Dermatology 05/14/24 Scheduled Active and Recently [...] 2018 (Not Given - Provider: Elvi Mendiola, IMMIGRATION MANAGER - Reason: Patient/family refused) 0647 (Not Given - Provider: Nichol Warren, [facility] - Reason: Other - Comment: Patient does [...] to the hypoglycemia management protocol on Ellucid: U-HU-[id number] Management Protocol. insulin lispro (HumaLOG) injection(Linked Group [...] 2 g, Intravenous, Administer over 30 Minutes, ANNEALING FURNACE OPERATOR TO PROCEDURE, 1 dose, Starting on [...] less than 60 mg/ml. If unresponsive call COMPUTATIONAL THEORY SCIENTIST HYDROmorphone (DILAUDID) injection 0.5 mg 0.5 mg, [...] to the hypoglycemia management protocol on Ellucid: Y-FB-Iauhowaoncjw Management Protocol.
And dextrose 10% IV solution [...] less than 60 mg/ml. If unresponsive call COMPUTATIONAL THEORY SCIENTIST
And NOTIFY PHYSICIAN, Blood Glucose LESS THAN 70 mg/dl or greater than 400 mg/dl (CANCELED) Routine, CONTINUOUS, Starting on Sat01/23/22 at 1737, Until Specified
Who to Notify: DELINQUENT TAX COLLECTION ASSISTANT/Physician
For all Blood Glucose LESS THAN 70 mg/dl, or greater than 400 mg/dl notify DELINQUENT TAX COLLECTION ASSISTANT/Physician Goals (unrecognized section and content) Goals may [...] BE BASED ON THE PRIMARY CLINICAL RECORDS. [employer] provides no warranty or guarantee of the accuracy or completeness of information in this document.
== END 2025-03-22 12:23 | disposition home or self-care (01) ==
LOC: LAB 12:22
PROVIDERS: PCP Family Medicine; Visit Provider Family Medicine
DX: S81.019D Laceration without foreign body, unspecified knee, subsequent encounter (principal)
CPT/HCPCS: 87070; 87075; 87077; 87186